=== PATIENT | male | born 1980 | race Caucasian/White ===

== ENCOUNTER 2017-11-24 22:49 | Inpatient (IN) | payer MEDICAID, SELFPAY ==
[2017-11-24 22:50] VITALS: BP 150/88; PULSE 129; RESP 22; TEMP 37.1; O2SAT 99; BMI 27.3
[2017-11-24 23:00] LABS: Bedside Glucose > 500 mg/dL (70-110)
--- NOTE | 2017-11-24 23:26 | ED.VISSUMM ---
- ER Visit Summary Date of Service: 11/24/17 Chief Complaint: [] in DKA History of Present Illness: The patient is a 37 M presents with feeling like he is in DKA for last 2 days gradual onset. He has been using his insulin. He had 4 episodes of emesis yesterday and 6 today. He cannot get on top of his blood sugars. They were greater than 500 today. He takes NovoLog and a long-acting in the morning. He has not seen his family doctor to change his insulin the last 8 months. Any other symptoms except for muscle aches soreness Physical Examination: Vital signs reviewed General: Well-nourished well-developed Head: Normocephalic atraumatic Eyes: Pupils equal round and reactive to light extraocular movements intact ENT: TMs clear no hemotympanum no trauma Neck: Nontender full range of motion Cardiovascular: Regular tachycardia with normal rhythm. No murmurs normal S1-S2 Respiratory: No distress clear to auscultation bilaterally chest nontender Abdomen: Soft nontender nondistended normal bowel sounds no masses Back: Nontender no CVA tenderness Extremities: Nontender active range of motion ?4 extremities no trauma Skin: Normal color no trauma Neuro alert oriented cranial nerves II through XII intact normal strength sensation reflexes Test Results: [] Emergency Department Course and Treatment: [] Given IV fluid boluses. Initial blood sugar greater than 500. Lab work shows DKA with CO2 of 6 anion gap 33. Ketones large. Given 4 L of fluid in the emergency department as well as started on insulin drip. Will be admitted. Treatment Plan: [] Disposition: [] Impression: [] Diabeticketoacidosis Renal insufficiency secondary to diabetic ketoacidosis Critical care time 74 minutes This note was generated with [employer] dictation software. It may contain incorrect words, spelling, and punctuation that were not noted in review of the chart prior to signing ED Disposition - Plan for ED Patient: Chief Complaint: Fatigue Referrals: Kristal Luke MD [Primary Care Provider] -
[2017-11-24] MEDS: 0.9% Normal Saline 1,000 ML 1000 ML IV ×2 (23:37→23:38)
[2017-11-24] MEDS: Ondansetron 4 MG/2 ML Vial IV (23:38)
[2017-11-24 23:41] LABS: Absolute Lymphocyte Count 1.07 X10^3/ul (0.83-4.51); Absolute Neutrophil Count 9.4 X10^3/uL (2.0-7.7); Basophil# 0.04 X10^3/uL; Basophil% 0.4 % (0-1); Eosinophil# 0.02 X10^3/uL; Eosinophils% 0.2 % (0-5); Hematocrit 40.6 % (40-54); Hemoglobin 13.1 g/dl (13.0-16.5); Lymphocyte # 1.07 X10^3/ul (4.0); Lymphocyte % 9.6 % (19-41); Mean Corp Hgb Conc 32.3 g/gl (32-36); Mean Corpuscular Hgb 28.5 pg (27.0-32.0); Mean Corpuscular Volume 88.3 fL (80-94); Mean Platelet Vol. 9.7 fl (6.2-12.0); Monocyte# 0.66 X10^3/uL; Monocyte% 5.9 % (0-10); Neutrophil # 9.35 X10^3/uL (2.7-7.7); Neutrophil % 83.8 % (47-70); Platelet Count 327 K/mm3 (150-450); RBC Distribution Width CV 12.9 % (11.6-14.6); RBC Distribution Width SD 41.5 fl (35.1-43.9); White Blood Count 11.2 K/mm3 (4.4-11.0)
[2017-11-24 23:42] VITALS: BP 126/87; PULSE 114; RESP 18; O2SAT 99
[2017-11-24 23:49] LABS: POSITIVE COUNT NO; POSITIVE DIFFERENTIAL NO; POSITIVE MORPHOLOGY NO
[2017-11-25] VITALS (25 sets, daily range): BP systolic 89–163; BP diastolic 59–105; PULSE 81–115; RESP 9–27; TEMP 36.7–37.1; O2SAT 92–100; BMI 27.8; BMI 27.9
[2017-11-25 00:05] LABS: Anion Gap 33 (5-15); BUN 43 mg/dL (7-18); BUN/Creat Ratio 18.5 RATIO (10-20); Calcium,Total 9.8 mg/dL (8.5-10.1); Chloride 91 mmol/L (98-107); Creatinine, Serum 2.32 mg/dL (0.70-1.30); EST Glomerular Filtration Rate 34 mL/min (>60); Est Glom Filt Rate - Afr Amer 41 mL/min (>60); Estimated Creatinine Clearance 47.33 ml/min; Glucose 505 mg/dL (74-106); Potassium 4.3 mmol/L (3.5-5.1); Sodium Level 130 mmol/L (136-145)
[2017-11-25] MEDS: Ketorolac 15 MG/ML Vial IV (00:16)
--- NOTE | 2017-11-25 00:42 | PCM.HP.STD ---
Problem List (1) DKA (diabetic ketoacidoses) Status: Acute Qualifiers: Diabetes mellitus type: type 1 Diabetes mellitus complication detail: without coma Qualified Code(s): E10.10 - Type 1 diabetes mellitus with ketoacidosis without coma (2) Hyperlipidemia Status: Chronic (3) History of anxiety Status: Chronic (4) DM type 1 (diabetes mellitus, type 1) Status: Chronic History of Present Illness Date of Admission: 11/25/17 Chief Complaint: general weakness The patient is a 37 year old male patient with a significant past medical history of type one diabetes presents to the ER with generalized weakness. His last episode of DKA was 4 years ago. He admits that recently he has been on a keto diet and has been adjusting his insulin without actually checking his blood sugar levels. He last saw his PCP for diabetes management 8 months ago. His blood sugar is 505 with an anion gap of 33 and his positive for acetone in his urine. He has received 3 liters of normal saline and is on insulin drip. He denies feeling nausea but admits he is fatigued. He thinks he has been in DKA for the past 3 days and has been trying to dose himself with insulin to get out but admits he was unsuccessful so he came in for advanced care. Past Medical History Past Medical History (Chronic Problems): Chronic Problems Hyperlipidemia (Chronic) History of anxiety (Chronic) DM type 1 (diabetes mellitus, type 1) (Chronic) Allergies No Known Allergies Allergy (Verified 11/24/17 22:52) Home Medications: Ambulatory Orders Medication Instructions Recorded Insulin Aspart [Novolog Flexpen 0 units SC TIDCM 09/06/15 ([facility])] Insulin Aspart [Novolog Flexpen 10 units SC TIDCM #1 flexpen 06/17/16 ([facility])] Insulin Glargine,Hum.rec.anlog 40 unit SQ BREAKFAST 06/17/16 [Basaglar Kwikpen U-100] Ibuprofen 800 mg PO DAILY 11/24/17 Surgical History: - - RLE I+D secondary to abscess, noted was staph. Psychiatric History: Anxiety Smoking Status: Never smoker - *Family History Maternal History Items: Diabetes Paternal History Items: Diabetes, Heart Disease Review of Systems Constitutional: Reports: Weakness, Fatigue. Denies: Chills, Fever, Weight Change HEENT: Denies: Head Aches, Sinus Congestion, Sinus Drainage Cardiovascular: Denies: Chest Pain, Palpitations Respiratory: Denies: Cough, Shortness of breath at rest, Sputum production Gastrointestinal: Reports: Abdominal Pain, Nausea, Vomiting Genitourinary: Denies: Dysuria Musculoskeletal: Denies: Joint Pain, Joint Tenderness Skin: Denies: Rash, Wounds Neurological: Denies: Numbness, Tingling, Focal weakness Psychiatric: Reports: Anxiety. Denies: Depression, Homicidal Ideations, Suicidal Ideations Hematologic/ Lymphatic: Denies: Easy Bruising, Easy Bleeding VTE Information - Inpt Only VTE Present on Admission: No VTE Mechan Device Prophylaxis: None VTE Pharm Prophylaxis ordered?: Yes Patient Problems: Active and Suspected Problems DKA (diabetic ketoacidoses) (Acute) - Physical Exam General: Alert, Oriented x3, Cooperative HEENT: Atraumatic, Normocephalic Neck: Supple Lungs: Clear to auscultation, Normal air movement, No rhonchi, No wheeze, No rales Cardiovascular: Regular rate, Normal S1, Normal S2, No murmurs Abdomen: Bowel Sounds Present, Soft, Tender - mild tenderness generalized Extremities: No edema, Capillary Refill Less than 3 Seconds Skin: No rashes Musculoskeletal: No Tenderness to Palpation of Joints or Extremities Neurological: Neuro grossly intact Psych/Mental Status: Normal Affect, Appropriate Vital Signs Temp Pulse Resp BP Pulse Ox 98.7 F 114 H 18 126/87 H 99 11/24/17 22:50 11/24/17 23:42 11/24/17 23:42 11/24/17 23:42 11/24/17 23:42 Oxygen Delivery Method Room Air Weight: 196 lb Body Mass Index (BMI) 27.3 Finger Stick Blood Glucose 525 Laboratory Tests Past 24 Hrs 11/24/17 11/24/17 11/24/17 23:10 23:10 23:10 WBC 11.2 H RBC 4.60 Hgb 13.1 Hct 40.6 MCV 88.3 MCH 28.5 MCHC 32.3 RDW 12.9 RDW Differential 41.5 Plt Count 327 MPV 9.7 Immature Gran % (Auto) 0.100 Neut % (Auto) 83.8 H Lymph % (Auto) 9.6 L [place] % (Auto) 5.9 Eos % (Auto) 0.2 Baso % (Auto) 0.4 Absolute Neuts (auto) 9.4 H Absolute Lymphs (auto) 1.07 Total Counted Not Reportable Sodium 130 L Potassium 4.3 Chloride 91 L Carbon Dioxide 6.0 L* Anion Gap 33 H BUN 43 H Creatinine 2.32 H Estim Creat Clear Calc 47.33 Est GFR (MDRD) Af Amer 41 L Est GFR (MDRD) Non-Af 34 L BUN/Creatinine Ratio 18.5 Glucose 505 H* Calcium 9.8 Acetone Level LARGE H POC Glucose 11/24/17 22:56 POC Glucose > 500 H* Assessment/Plan All Active Problems DKA (diabetic ketoacidoses) (Acute) Hypoglycemia (Acute) Chronic Problems Hyperlipidemia (Chronic) History of anxiety (Chronic) DM type 1 (diabetes mellitus, type 1) (Chronic) Plan - admit to ICU - consult Dr Ryan - DKA protocol with insulin ggt - bmp in 4 hrs - NPO while on drip - LMWH for DVT prophylaxis Code Visit Inpatient E&M: 34321 Init Hosp L3
[2017-11-25] MEDS: 0.9% Normal Saline 1,000 ML 1000 ML IV ×2 (01:20→02:32)
[2017-11-25 01:26] LABS: Bedside Glucose 247 mg/dL (70-110)
[2017-11-25] MEDS: HYDROmorphone 1 MG/ML Syringe IV (02:43)
[2017-11-25] MEDS: DiphenhydrAMINE 50 MG/ML Syringe IV (02:43)
[2017-11-25 03:12] LABS: Anion Gap 26 (5-15); BUN 36 mg/dL (7-18); BUN/Creat Ratio 19.9 RATIO (10-20); Calcium,Total 8.8 mg/dL (8.5-10.1); Chloride 104 mmol/L (98-107); Creatinine, Serum 1.81 mg/dL (0.70-1.30); EST Glomerular Filtration Rate 46 mL/min (>60); Est Glom Filt Rate - Afr Amer 55 mL/min (>60); Estimated Creatinine Clearance 60.67 ml/min; Glucose 215 mg/dL (74-106); Sodium Level 140 mmol/L (136-145)
[2017-11-25 03:56] LABS: Bedside Glucose 133 mg/dL (70-110)
[2017-11-25 03:56] LABS: Bedside Glucose 175 mg/dL (70-110)
[2017-11-25 04:11] LABS: M R Staph aureus DNA By PCR Negative (Negative); Probe Check PASS; Specimen Processing Control PASS
[2017-11-25 04:54] LABS: Hemoglobin A1c 10.5 % (4.2-6.3)
[2017-11-25 05:21] LABS: Bedside Glucose 107 mg/dL (70-110)
[2017-11-25 06:16] LABS: Bedside Glucose 105 mg/dL (70-110)
[2017-11-25] MEDS: Ondansetron 4 MG/2 ML Vial IV (06:28)
[2017-11-25] MEDS: 0.9% NaCl Peripheral Flush Adult/Peds IV (06:28)
--- NOTE | 2017-11-25 06:49 | CON.PCM_ITS ---
Problem List (1) DKA (diabetic ketoacidoses) Status: Acute Qualifiers: Diabetes mellitus type: type 1 Diabetes mellitus complication detail: without coma Qualified Code(s): E10.10 - Type 1 diabetes mellitus with ketoacidosis without coma (2) Hyperlipidemia Status: Chronic (3) Hypoglycemia Status: Acute (4) History of anxiety Status: Chronic (5) DM type 1 (diabetes mellitus, type 1) Status: Chronic Reason for Consult Date of Consultation: 11/25/17 Reason for Consultation: DKA History of Present Illness: The patient is a 37 year old M with past medical history listed below, who presented to [facility] on 11/24/2017 secondary to nausea and vomiting. Patient reportedly had noted increasing fatigue, nausea and vomiting over the last 3 days. Patient states his sugars were greater than 500 at home and he had attempted increased insulin with no improvement. Patient did report some muscle aches and soreness, but no fever, chills, productive cough or diarrhea has been reported. In the emergency room, patient was noted to be in DKA with a bicarbonate of 6 and an anion gap of 33. Patient was given 4 L of IV fluids and initiated on insulin drip. Patient reportedly responded well and was transferred to the intensive care unit. While in the intensive care unit, patient did complain at approximately 2:30 AM of chest pain. Pain was described as sharp and substernal without radiation. No diaphoresis was reported. Patient had an EKG showed no ST segment elevation. Patient was given Dilaudid with improvement in symptoms. Patient's blood sugars improved rapidly and hospitalist did hold insulin drip when levels continue to fall despite addition of D5 half-normal saline. Patient reports last time he was in DKA was approximately 2-3 years ago. Patient denies any recent illness. Patient states he has been using his insulin and checking his blood sugars frequently. Patient does admit that he has not seen a family physician in over 8 months. Patient is unaware of what his hemoglobin A1c is currently. Review of systems otherwise negative ?10 systems. Past Medical History Past Medical History (Chronic Problems): Chronic Problems Hyperlipidemia (Chronic) History of anxiety (Chronic) DM type 1 (diabetes mellitus, type 1) (Chronic) Allergies No Known Allergies Allergy (Verified 11/24/17 22:52) Home Medications: Ambulatory Orders Medication Instructions Recorded Insulin Aspart [Novolog Flexpen 0 units SC TIDCM 09/06/15 ([facility])] Insulin Aspart [Novolog Flexpen 10 units SC TIDCM #1 flexpen 06/17/16 ([facility])] Insulin Glargine,Hum.rec.anlog 40 unit SQ BREAKFAST 06/17/16 [Basaglar Kwikpen U-100] Ibuprofen 800 mg PO DAILY 11/24/17 Surgical History: - - RLE I+D secondary to abscess, noted was staph. Psychiatric History: Anxiety Smoking Status: Never smoker - *Family History Maternal History Items: Diabetes Paternal History Items: Diabetes, Heart Disease Review of Systems Comment: See HPI Patient Problems: Active and Suspected Problems DKA (diabetic ketoacidoses) (Acute) Objective: No imaging was available for review. - Physical Exam General: Alert, Oriented x3, Cooperative, No apparent distress, - - Speaking in full sentences. Appears stated age. HEENT: Atraumatic, PERRLA, EOMI, Normocephalic, - - No scleral icterus or injection noted. Oral: Moist Mucosa, No Gingival or Mucosal Lesions/ Ulcerations Neck: Supple, No JVD, No Nodes, Trachea Midline Lungs: Clear to auscultation, Normal air movement, No rhonchi, No wheeze, No rales, - - Symmetric expansion. No dullness to percussion. Cardiovascular: Regular rate, Regular Rhythm, Normal S1, Normal S2, No murmurs, No rub noted, No Gallop Abdomen: Bowel Sounds Present, Soft, Non Tender, Non-Distended, Obese Extremities: No clubbing, No cyanosis, No edema, Capillary Refill Less than 3 Seconds Skin: No rashes, No breakdown Musculoskeletal: No Tenderness to Palpation of Joints or Extremities Lymphatic: No Cervical, Supraclavicular, or Inguinal Adenopathy Neurological: Cranial nerves II-XII grossly intact, Neuro grossly intact, Motor Exam 5/5 strength throughout Psych/Mental Status: Alert and oriented to time, place, person, mood and affect Vital Signs Temp Pulse Resp BP Pulse Ox 36.7 C 91 16 103/69 96 11/25/17 04:00 11/25/17 06:00 11/25/17 06:00 11/25/17 06:00 11/25/17 06:00 Oxygen Delivery Method Room Air Weight: 90.7 kg Body Mass Index (BMI) 27.8 Finger Stick Blood Glucose 247 Intake and Output for Last 24 Hours 11/23/17 11/24/17 11/25/17 23:59 23:59 23:59 Intake Total 1233.5 / 1233.5 Output Total 1000 / 1000 Balance 233.5 / 233.5 Laboratory Tests 11/24/17 11/24/17 11/24/17 22:56 23:10 23:10 WBC 11.2 H RBC 4.60 Hgb 13.1 Hct 40.6 MCV 88.3 MCH 28.5 MCHC 32.3 RDW 12.9 RDW Differential 41.5 Plt Count 327 MPV 9.7 Immature Gran % (Auto) 0.100 Neut % (Auto) 83.8 H Lymph % (Auto) 9.6 L [place] % (Auto) 5.9 Eos % (Auto) 0.2 Baso % (Auto) 0.4 Absolute Neuts (auto) 9.4 H Absolute Lymphs (auto) 1.07 Total Counted Not Reportable Sodium 130 L Potassium 4.3 Chloride 91 L Carbon Dioxide 6.0 L* Anion Gap 33 H BUN 43 H Creatinine 2.32 H Estim Creat Clear Calc 47.33 Est GFR (MDRD) Af Amer 41 L Est GFR (MDRD) Non-Af 34 L BUN/Creatinine Ratio 18.5 Glucose 505 H* Hemoglobin A1c Calcium 9.8 Acetone Level MRSA (PCR) POC Glucose > 500 H* 11/24/17 11/25/17 11/25/17 23:10 01:18 02:30 WBC RBC Hgb Hct MCV MCH MCHC RDW RDW Differential Plt Count MPV Immature Gran % (Auto) Neut % (Auto) Lymph % (Auto) [place] % (Auto) Eos % (Auto) Baso % (Auto) Absolute Neuts (auto) Absolute Lymphs (auto) Total Counted Sodium Potassium Chloride Carbon Dioxide Anion Gap BUN Creatinine Estim Creat Clear Calc Est GFR (MDRD) Af Amer Est GFR (MDRD) Non-Af BUN/Creatinine Ratio Glucose Hemoglobin A1c Calcium Acetone Level LARGE H MRSA (PCR) Negative POC Glucose 247 H 11/25/17 11/25/17 11/25/17 02:38 02:38 02:41 WBC RBC Hgb Hct MCV MCH MCHC RDW RDW Differential Plt Count MPV Immature Gran % (Auto) Neut % (Auto) Lymph % (Auto) [place] % (Auto) Eos % (Auto) Baso % (Auto) Absolute Neuts (auto) Absolute Lymphs (auto) Total Counted Sodium 140 Potassium 4.0 Chloride 104 Carbon Dioxide 10.0 L Anion Gap 26 H BUN 36 H Creatinine 1.81 H Estim Creat Clear Calc 60.67 Est GFR (MDRD) Af Amer 55 L Est GFR (MDRD) Non-Af 46 L BUN/Creatinine Ratio 19.9 Glucose 215 H Hemoglobin A1c 10.5 H Calcium 8.8 Acetone Level MRSA (PCR) POC Glucose 175 H 11/25/17 11/25/17 11/25/17 03:50 05:11 06:07 WBC RBC Hgb Hct MCV MCH MCHC RDW RDW Differential Plt Count MPV Immature Gran % (Auto) Neut % (Auto) Lymph % (Auto) [place] % (Auto) Eos % (Auto) Baso % (Auto) Absolute Neuts (auto) Absolute Lymphs (auto) Total Counted Sodium Potassium Chloride Carbon Dioxide Anion Gap BUN Creatinine Estim Creat Clear Calc Est GFR (MDRD) Af Amer Est GFR (MDRD) Non-Af BUN/Creatinine Ratio Glucose Hemoglobin A1c Calcium Acetone Level MRSA (PCR) POC Glucose 133 H 107 105 Assessment/Plan Active and Suspected Problems DKA (diabetic ketoacidoses) (Acute) RECOMMENDATIONS: 1. Increase dextrose drip, continue insulin 2. Aggressive hydration 3. Laboratory workup per protocol 4. Cycle troponins IMPRESSIONS: 1. Acute DKA without coma Patient currently on an insulin drip. Patient's gap continues to improve on protocol. Will increase IV fluids to compensate for fall in glucose. Continue insulin drip. Transition to subcu insulin per protocol. Patient does not appear to have extraneous factors leading to development of DKA. Hemoglobin A1c of 10.5 indicating poor long-term control. Will have to see if patient can follow-up with endocrinology as an outpatient. 2. Atypical chest pain Unclear if patient is currently seeking pain medications. EKG is unremarkable. Will obtain cardiac enzyme series. Patient does have type 1 diabetes that is uncontrolled. Continue with telemetry monitoring. 3. Acute kidney injury High clinical suspicion for prerenal etiology secondary to DKA. Patient is receiving aggressive fluid resuscitation. We will continue to monitor. No indication for renal replacement therapy at this time. Code Visit Inpatient E&M: 80951 Init Hosp L2
[2017-11-25 06:59] LABS: Hematocrit 38.7 % (40-54); Hemoglobin 12.9 g/dl (13.0-16.5); Mean Corp Hgb Conc 33.3 g/gl (32-36); Mean Corpuscular Hgb 28.5 pg (27.0-32.0); Mean Corpuscular Volume 85.6 fL (80-94); Platelet Count 271 K/mm3 (150-450); RBC Distribution Width CV 12.8 % (11.6-14.6); RBC Distribution Width SD 39.8 fl (35.1-43.9); Red Blood Count 4.52 M/mm3 (4.6-6.2); Scan Indicated on CBC? Y/N NO; White Blood Count 9.3 K/mm3 (4.4-11.0)
[2017-11-25 07:11] LABS: Bedside Glucose 90 mg/dL (70-110)
[2017-11-25 07:11] LABS: Anion Gap 17 (5-15); BUN 29 mg/dL (7-18); BUN/Creat Ratio 17.8 RATIO (10-20); Calcium,Total 8.5 mg/dL (8.5-10.1); Chloride 108 mmol/L (98-107); Creatinine, Serum 1.63 mg/dL (0.70-1.30); EST Glomerular Filtration Rate 51 mL/min (>60); Est Glom Filt Rate - Afr Amer 62 mL/min (>60); Estimated Creatinine Clearance 67.37 ml/min; Glucose 112 mg/dL (74-106); Potassium 4.2 mmol/L (3.5-5.1); Sodium Level 140 mmol/L (136-145)
[2017-11-25] MEDS: Ibuprofen 400 MG Tablet 800 MG PO (08:02)
[2017-11-25] MEDS: Enoxaparin 40 MG/0.4 ML Syringe SC (08:02)
[2017-11-25 08:11] LABS: Bedside Glucose 96 mg/dL (70-110)
--- NOTE | 2017-11-25 09:26 | PCM.PN.HOSP ---
Patient Problems: Active and Suspected Problems DKA (diabetic ketoacidoses) (Acute) Subjective: Has leg cramping today, otherwise does feel a little better than yesterday Vitals/I&O's: Vital Signs Temp Pulse Resp BP Pulse Ox 98.8 F 97 18 107/75 98 11/25/17 08:00 11/25/17 08:00 11/25/17 08:00 11/25/17 08:00 11/25/17 08:00 Oxygen Delivery Method Room Air Weight: 199 lb 15.348 oz Body Mass Index (BMI) 27.8 Finger Stick Blood Glucose 96 Intake and Output for Last 24 Hours 11/23/17 11/24/17 11/25/17 23:59 23:59 23:59 Intake Total 1233.5 / 1233.5 Output Total 1000 / 1000 Balance 233.5 / 233.5 General: Alert, Oriented x3, Cooperative, No apparent distress HEENT: Atraumatic, EOMI, Normocephalic Oral: Moist Mucosa Neck: Supple, No JVD Lungs: Clear to auscultation, Normal air movement, No rhonchi, No wheeze, No rales Cardiovascular: Regular rate, Regular Rhythm, Normal S1, Normal S2, No murmurs Abdomen: Soft, Non Tender, Non-Distended, No Hepato-splenomegaly Skin: No rashes, No breakdown Musculoskeletal: No Tenderness to Palpation of Joints or Extremities, No Muscle Wasting Psych/Mental Status: Normal Affect, Appropriate Laboratory Results 11/25/17 01:18: POC Glucose 247 H 11/25/17 02:30: MRSA (PCR) Negative 11/25/17 02:38: Hemoglobin A1c 10.5 H 11/25/17 02:38: Sodium 140, Potassium 4.0, Chloride 104, Carbon Dioxide 10.0 L, Anion Gap 26 H, BUN 36 H, Creatinine 1.81 H, Estim Creat Clear Calc 60.67, Est GFR (MDRD) Af Amer 55 L, Est GFR (MDRD) Non-Af 46 L, BUN/Creatinine Ratio 19.9, Glucose 215 H, Calcium 8.8 11/25/17 02:38: Troponin I < 0.015 11/25/17 02:41: POC Glucose 175 H 11/25/17 03:50: POC Glucose 133 H 11/25/17 05:11: POC Glucose 107 11/25/17 06:07: POC Glucose 105 11/25/17 06:45: Acetone Level SMALL H 11/25/17 06:45: WBC 9.3, RBC 4.52 L, Hgb 12.9 L, Hct 38.7 L, MCV 85.6, MCH 28.5, MCHC 33.3, RDW 12.8, RDW Differential 39.8, Plt Count 271, MPV 9.0 11/25/17 06:45: Sodium 140, Potassium 4.2, Chloride 108 H, Carbon Dioxide 15.0 L, Anion Gap 17 H, BUN 29 H, Creatinine 1.63 H, Estim Creat Clear Calc 67.37, Est GFR (MDRD) Af Amer 62, Est GFR (MDRD) Non-Af 51 L, BUN/Creatinine Ratio 17.8, Glucose 112 H, Calcium 8.5 11/25/17 06:45: Troponin I < 0.015 11/25/17 07:06: POC Glucose 90 11/25/17 07:58: POC Glucose 96 Current Medications Dextrose (D50w Syringe) 0 gm IV X1 PRN; Protocol PRN Reason: HYPOGLYCEMIA Enoxaparin Sodium (Lovenox) 40 mg SC DAILY@1000 CHILO Last Admin: 11/25/17 08:02 Dose: 40 mg Insulin Human Lispro 100 unit/ (Sodium Chloride) 100 mls @ 8.89 mls/hr IV .[id number] CHILO; 0.1 UNITS/KG/HR PRN Reason: Protocol Last Admin: 11/25/17 01:20 Dose: 8.89 mls/hr Potassium Chloride/Dextrose/Sod Cl (Kcl 20meq In D5.45ns 1000ml) 1,000 mls @ 200 mls/hr IV .Q5H [facility] Last Admin: 11/25/17 08:45 Dose: Not Given Ibuprofen (Motrin) 800 mg PO DAILYCM [facility] Last Admin: 11/25/17 08:02 Dose: 800 mg Magnesium Hydroxide (Milk Of Magnesia) 30 ml PO DAILY PRN PRN PRN Reason: Constipation Ondansetron HCl (Zofran) 4 mg IV Q6H PRN PRN PRN Reason: NAUSEA Last Admin: 11/25/17 06:28 Dose: 4 mg Sodium Chloride () 5 - 30 ml IV UD PRN PRN Reason: SALINE FLUSH Last Admin: 11/25/17 06:28 Dose: 10 ml Medical Necessity - Tobacco Use Smoking Status: Never smoker Assessment/Plan All Active Problems DKA (diabetic ketoacidoses) (Acute) Hypoglycemia (Acute) 1. DKA with DM1 - C/w the insulin gtt per protocol - Acidosis and gap are closing but his CO2 is still 15 up from 6 and his gap is 17 - C/w IVF and monitor potassium, currently stable, replace as needed - Should be able to transition to SC insulin soon and then will monitor on a diet DVT: Heparin Diet: NPO Code: FULL Code Visit Inpatient E&M: 79940 Subs Hosp L2
[2017-11-25 10:10] LABS: Anion Gap 10 (5-15); BUN 24 mg/dL (7-18); BUN/Creat Ratio 17.5 RATIO (10-20); Calcium,Total 7.7 mg/dL (8.5-10.1); Chloride 112 mmol/L (98-107); Creatinine, Serum 1.37 mg/dL (0.70-1.30); EST Glomerular Filtration Rate 63 mL/min (>60); Est Glom Filt Rate - Afr Amer 76 mL/min (>60); Estimated Creatinine Clearance 80.16 ml/min; Glucose 90 mg/dL (74-106); Potassium 4.4 mmol/L (3.5-5.1); Sodium Level 137 mmol/L (136-145)
[2017-11-25 11:05] LABS: Bedside Glucose 78 mg/dL (70-110)
[2017-11-25 11:31] LABS: Bedside Glucose 71 mg/dL (70-110)
[2017-11-25 12:10] LABS: Bedside Glucose 61 mg/dL (70-110)
[2017-11-25 13:10] LABS: Bedside Glucose 67 mg/dL (70-110)
[2017-11-25 14:15] LABS: Anion Gap 11 (5-15); BUN 20 mg/dL (7-18); BUN/Creat Ratio 15.2 RATIO (10-20); Chloride 110 mmol/L (98-107); Creatinine, Serum 1.32 mg/dL (0.70-1.30); EST Glomerular Filtration Rate 66 mL/min (>60); Est Glom Filt Rate - Afr Amer 79 mL/min (>60); Estimated Creatinine Clearance 83.19 ml/min; Glucose 104 mg/dL (74-106); Potassium 4.9 mmol/L (3.5-5.1); Sodium Level 140 mmol/L (136-145)
[2017-11-25 16:00] LABS: Bedside Glucose 81 mg/dL (70-110)
--- NOTE | 2017-11-25 21:00 | NURSING ---
This RN explained to the pt, with pt's mother at bedside that the doctor highly advised pt to stay for the night. Pt was educated on why it was in the pt's best interest to stay. Pt signed AMA papers and given copy. IVs removed and heart monitor taken off.
--- NOTE | 2017-11-25 21:02 | NURSING ---
Patient's nurse Yarelis said patient wants to sign out AMA. Entered patient's room and introduced self as charge nurse. Patient's mother is at bedside and he gives permission to talk freely in front of her. Encouraged patient to stay multiple times, explained he would not get discharge instructions from doctors, explained importance of health to get discharge instructions, follow up appointments and if needed any medications prescriptions. He states I have to go to work in the morning and I can check my blood sugars at home. Mother also wants him to stay but he insists on going home. AMA papers given to patient's nurse Yarelis for him to sign.
== END 2017-11-25 21:10 | disposition left against medical advice (07) | DRG 295 ==
LOC: ED 11-25 00:14 → ICU 11-25 01:45 → PCU 11-25 17:11
PROVIDERS: Internal Medicine Critical Care Medicine; Admitting Provider Family Medicine; Emergency Provider Emergency Medicine; Family Provider Internal Medicine; PCP Internal Medicine; Visit Provider Family Medicine
DX: E10.10 Type 1 diabetes mellitus with ketoacidosis without coma (principal); N17.9 Acute kidney failure, unspecified; E78.5 Hyperlipidemia, unspecified; R07.89 Other chest pain; Z79.4 Long term (current) use of insulin
CPT/HCPCS: 80048; 82009; 82962; 83036; 84484; 85025; 85027; 87641; 93005; 97802; 99285; J7030; A4216; J2405

== ENCOUNTER 2018-02-07 22:28 | Observation (INO) | payer MEDICAID, SELFPAY ==
[2018-02-07 22:30] VITALS: BP 144/97; PULSE 102; RESP 18; TEMP 35.9; O2SAT 99; BMI 30.1
[2018-02-07] MEDS: Dextrose 50%-Water 25 GM/50 ML DISP.SYRIN IV (22:43)
--- NOTE | 2018-02-07 22:47 | CT_ITS ---
STUDY: CT BRAIN WITHOUT CONTRAST REASON FOR EXAM: Male, 37 years old. Headache. Hypertension. Hypoglycemia. RADIATION DOSAGE (If Supplied By Facility): CTDIvol = ( 44.99 ) mGy, DLP = ( 762.36 ) mGycm TECHNIQUE: Transaxial CT imaging of the brain was performed without administration of intravenous contrast material. Individualized dose optimization techniques were used for this CT. COMPARISON: None. FINDINGS: Normal soft tissue structures. Normal calvarium. Normal size ventricles and extra-axial spaces for the patient's age. Normal white matter tracts of the cerebral hemispheres. Normal basal ganglia and thalami. Normal brainstem. Normal cerebellum. There is no intracranial hemorrhage. There are no findings of an acute ischemic infarction. Normal visualized paranasal sinuses. CT/Brain/Head without Contrast IMPRESSION: Normal unenhanced CT scan of the brain. Electronically Signed: Anya Fontaine MD at 23:29 EST Tel , Service support ,
--- NOTE | 2018-02-07 22:47 | RAD_ITS ---
STUDY: X-RAY CHEST REASON FOR EXAM: Male, 37 years old. Hypoglycemia. TECHNIQUE: Portable chest. COMPARISON: 09/15/2013. FINDINGS: The lungs are clear and expanded. There is no demonstrated pleural abnormality. Normal size heart. Normal mediastinum and yamini. Normal visualized pulmonary arteries. Normal visualized aortic arch and descending thoracic aorta. Normal visualized thoracic spine. Normal visualized ribs, clavicles, and shoulders. There is no demonstrated abnormality of the visualized soft tissue structures of the upper abdomen. RAD/Chest 1 View (Portable) IMPRESSION: Normal x-ray examination of the chest. Electronically Signed: Anya Fontaine MD at 23:57 EST Tel , Service support ,
--- NOTE | 2018-02-07 22:49 | EKG12_ITS ---
Test Reason : HYPOGLYCEMIA Blood Pressure : / mmHG Vent. Rate : 093 BPM Atrial Rate : 093 BPM P-R Int : 160 ms QRS Dur : 082 ms QT Int : 356 ms P-R-T Axes : 040 034 048 degrees QTc Int : 442 ms Normal sinus rhythm Normal ECG Confirmed by DANIELLE TORRES MD ([id number]), scientific editor JF AUGUST ([id number] on 02/10/2018 3:57:37 PM Referred By: NOA Confirmed By:DANIELLE TORRES MD
[2018-02-07 22:50] LABS: Bedside Glucose 44 mg/dL (70-110)
[2018-02-07 22:55] LABS: Bedside Glucose 146 mg/dL (70-110)
[2018-02-07] MEDS: 0.9% Normal Saline 1,000 ML 1000 ML IV (22:56)
--- NOTE | 2018-02-07 22:58 | ED.DCSUM_ITS ---
- ER Visit Summary Date of Service: 02/07/18 Chief Complaint: Neck pain and headache History of Present Illness: The patient is a 37 M who was brought in due to neck pain and headache for the past 1 week. He complains of diffuse headache with pain radiating into his neck. was bringing him in to be evaluated for this. He was complaining of blurry vision at home prior to leaving and she checked his blood sugar which was 35 and he drank some orange juice. However he is mental status continued to worsen and became increasingly confused on his way here despite that. He did have a couple of episodes of nonbloody nonbilious emesis today as well. reports that he been complaining of some myalgias. No fever congestion rhinorrhea sore throat chest pain trouble breathing cough. No history of prior similar symptoms. He is a type I diabetic without any other medical history. notes that he is a brittle diabetic and difficult to control. Physical Examination: Heart rate 102 afebrile vitals otherwise normal No apparent distress At the initial time of my history patient was nonverbal but would open his eyes to voice but would not answer any questions, after administration of D50 he remains confused but was able to answer questions and follow commands No focal or lateralizing neurological deficits Heart is regular rhythm slightly tachycardic Lungs are clear Abdomen soft nontender Pupils are equally round reactive to light Neck is supple without nuchal rigidity or meningismus Extremities nontender without edema No rash Test Results: Initial BGT 44. Repeat BGT 146. EKG shows normal sinus rhythm at a rate of 93. CBC BMP notable for glucose of 48 this was drawn with IV start prior to the first D50. Hepatic function normal. INR normal. Lactic acid slightly elevated at 2.5. Urine shows ketones but otherwise normal. Chest x- ray normal. CT head normal. Emergency Department Course and Treatment: Patient was seen shortly after arrival to room 1. IV was established and the patient was given D50. The blood sugar greater than 140. Even when his blood sugar was normal he was confused. He was unable to tell me the year for his birthday. He underwent workup as above. Due to confusion and complaint of severe headache I discussed risks and benefits of lumbar puncture and his signed informed consent. Prior to the procedure patient's mental status is significantly improved. He is alert and oriented he did consent lumbar puncture. 3 attempts were made at the L4-L5 level but this was unsuccessful. It is somewhat technically difficult given his obesity. My clinical concern for bacterial meningitis is very low given lack of fever or leukocytosis or meningeal signs. I would not empirically treat with antibiotics based on this. Additionally his headache progressed over 1 day it was not thunderclap headache and he has no focal or lateralizing neurological deficits. I do not believe this is consistent with subarachnoid hemorrhage. He was given Toradol and Reglan for headache. He again developed hypoglycemia with a blood sugar in the 40s. He was given additional D50 and started on D5 infusion. He was discussed with the hospitalist and will be admitted. Treatment Plan: [] Disposition: Admit Impression: Headache Recurrent hypoglycemia This note was generated with [employer] dictation software. It may contain incorrect words, spelling, and punctuation that were not noted in review of the chart prior to signing ED Disposition - Plan for ED Patient: Chief Complaint: Hypoglycemia Referrals: Kristal Luke MD [Primary Care Provider] -
[2018-02-07 23:00] LABS: Absolute Lymphocyte Count 2.08 X10^3/ul (0.83-4.51); Absolute Neutrophil Count 4.1 X10^3/uL (2.0-7.7); Basophil# 0.02 X10^3/uL; Basophil% 0.3 % (0-1); Eosinophil# 0.09 X10^3/uL; Eosinophils% 1.3 % (0-5); Hematocrit 39.9 % (40-54); Hemoglobin 13.8 g/dl (13.0-16.5); Lymphocyte # 2.08 X10^3/ul (4.0); Lymphocyte % 29.7 % (19-41); Mean Corp Hgb Conc 34.6 g/gl (32-36); Mean Corpuscular Hgb 28.8 pg (27.0-32.0); Mean Corpuscular Volume 83.3 fL (80-94); Mean Platelet Vol. 8.6 fl (6.2-12.0); Monocyte# 0.68 X10^3/uL; Monocyte% 9.7 % (0-10); Neutrophil # 4.13 X10^3/uL (2.7-7.7); Neutrophil % 58.9 % (47-70); POSITIVE COUNT NO; POSITIVE DIFFERENTIAL NO; POSITIVE MORPHOLOGY NO; Platelet Count 299 K/mm3 (150-450); RBC Distribution Width CV 12.9 % (11.6-14.6); Red Blood Count 4.79 M/mm3 (4.6-6.2)
[2018-02-07 23:05] LABS: International Normalized Ratio 0.9; Prothrombin Time (Protime)PT. 11.8 SECONDS (11.7-14.9)
[2018-02-07 23:12] LABS: ALB/GLOB Ratio 0.9 RATIO (0.9-2.4); AST(SGOT) 19 U/L (15-37); Alanine Aminotransfer ALT/SGPT 32 U/L (16-61); Albumin, Serum 3.8 g/dL (3.2-5.0); Alkaline Phosphatase 113 U/L (45-117); Anion Gap 13 (5-15); BUN 28 mg/dL (7-18); Calcium,Total 10.2 mg/dL (8.5-10.1); Chloride 101 mmol/L (98-107); Creatinine, Serum 1.27 mg/dL (0.70-1.30); EST Glomerular Filtration Rate 68 mL/min (>60); Est Glom Filt Rate - Afr Amer 83 mL/min (>60); Estimated Creatinine Clearance 81.18 ml/min; Globulin 4.2 g/dL (2.2-4.2); Glucose 48 mg/dL (74-106); Potassium 3.4 mmol/L (3.5-5.1); Sodium Level 137 mmol/L (136-145)
[2018-02-07 23:26] LABS: Mucous, Urine 0 SEEN /hpf (<or=2+)
[2018-02-07 23:28] LABS: Color, Urine Yellow (Yellow); Glucose, Dipstick 1000 mg/dl (Normal); Leukocyte Esterase-Dipstick 25 /ul (Negative); Nitrite-Dipstick Negative (Negative); Occult Blood-Urine 25 /ul (Negative); Protein-Dipstick 100 mg/dl (Negative); Urine Bilirubin Dipstick Negative (Negative); Urine Clarity Sl. Cloudy (Clear); Urine Urobilinogen Normal (Normal)
[2018-02-07 23:30] LABS: Ketone-Dipstick 150 mg/dl (Negative)
[2018-02-07 23:35] LABS: Lactic Acid 2.5 mmol/L (0.4-2.0)
--- NOTE | 2018-02-07 23:35 | ED.RN ---
LACTIC ACID 2.5, AWARE.
[2018-02-07 23:46] VITALS: PULSE 94; RESP 14; O2SAT 100
[2018-02-07 23:49] LABS: Bacteria RARE /hpf (None Seen); Red Blood Cells-Urine 0-5 SEEN /hpf (0-5); Squamous Epithelial Cells - UA 0-5 SEEN /hpf (0-5); White Blood Cells 0-5 SEEN /hpf (0-5)
[2018-02-08] VITALS (10 sets, daily range): BP systolic 124–185; BP diastolic 81–111; PULSE 80–101; RESP 16–25; TEMP 36.6–37.1; O2SAT 96–98; BMI 28.3
[2018-02-08] MEDS: Ketorolac 30 MG/ML Syringe IV (00:24)
[2018-02-08] MEDS: Metoclopramide 10 MG/2 ML Vial IV (00:24)
[2018-02-08] MEDS: Dextrose 50%-Water 25 GM/50 ML DISP.SYRIN IV (00:30)
[2018-02-08] MEDS: Dext 5%-0.45% NS 1,000 ML 125 ML IV (00:35)
[2018-02-08 00:56] LABS: Bedside Glucose 46 mg/dL (70-110)
[2018-02-08 00:56] LABS: Bedside Glucose 132 mg/dL (70-110)
--- NOTE | 2018-02-08 01:11 | CT_ITS ---
STUDY: CT CERVICAL SPINE WITHOUT CONTRAST REASON FOR EXAM: Male, 37 years old. Neck pain. Headaches RADIATION DOSAGE (If Supplied By Facility): CTDIvol = ( 29.11 ) mGy, DLP = ( 594.31 ) mGycm TECHNIQUE: High resolution transaxial imaging was performed without contrast material. Sagittal and coronal images were reconstructed. Individualized dose optimization techniques were used for this CT. COMPARISON: None FINDINGS: Normal craniovertebral junction. Normal anterior atlantoaxial articulation. Normal odontoid process. Normal cervical lordosis. Normal vertebral bodies and posterior osseous elements. C2-3: Normal endplates. Normal disc height and morphology. Normal central canal and intervertebral neuroforamina. C3-4: Normal endplates. Normal disc height and morphology. Normal central canal and intervertebral neuroforamina. C4-5: Normal endplates. Normal disc height and morphology. Normal central canal and intervertebral neuroforamina. C5-6: Normal endplates. Normal disc height and morphology. Normal central canal and intervertebral neuroforamina. C6-7: Normal endplates. Normal disc height and morphology. Normal central canal and intervertebral neuroforamina. C7-T1: Normal endplates. Normal disc height and morphology. Normal central canal and intervertebral neuroforamina. Normal visualized soft tissue structures. CT/Spine Cervical without Contras IMPRESSION: Normal unenhanced CT examination of the cervical spine. No fracture. No disc disease. Electronically Signed: Jerrell Mas MD at 1:51 EST Tel , Service support ,
--- NOTE | 2018-02-08 01:17 | HP.PCM_ITS ---
Problem List (1) Headache and neck pain Status: Acute (2) DKA (diabetic ketoacidoses) Status: Resolved Qualifiers: (3) Hyperlipidemia Status: Chronic (4) Hypoglycemia Status: Acute (5) History of anxiety Status: Chronic (6) DM type 1 (diabetes mellitus, type 1) Status: Chronic History of Present Illness Date of Admission: 02/08/18 Chief Complaint: Headache and neck pain for 1 week. Hypoglycemia The patient is a 37 year old M with history of type 1 diabetes mellitus on NovoLog and glargine insulin came to ED with headache and neck pain for about 1 week. Patient also complained of blurry vision on and off. Patient started having nausea and vomiting today that brought him to ER. Headache is started on back of neck on left side and radiated to the frontal region. He denies fever or chills, URI or flulike symptoms. No lower urinary tract symptoms. No abdominal pain or change in bowel movement. In ED, CT head and chest x-ray does not show acute change. EKG normal sinus rhythm. Basic lab was remarkable for lactic acid 2.5, calcium 10.2 and potassium 3.4 most probably related to dehydration. UA is negative for pyuria but glucose 1000, protein 100. The ER patient had unsuccessful attempt for LP [] Past Medical History Past Medical History (Chronic Problems): Chronic Problems Hyperlipidemia (Chronic) History of anxiety (Chronic) DM type 1 (diabetes mellitus, type 1) (Chronic) Allergies No Known Allergies Allergy (Verified 02/07/18 22:30) Home Medications: Ambulatory Orders Medication Instructions Recorded Insulin Aspart [Novolog Flexpen 0 units SC TIDCM 09/06/15 ([facility])] Insulin Aspart [Novolog Flexpen 10 units SC TIDCM #1 flexpen 06/17/16 ([facility])] Insulin Glargine,Hum.rec.anlog 40 unit SQ BREAKFAST 06/17/16 [Basaglar Kwikpen U-100] Ibuprofen 800 mg PO DAILY 11/24/17 Surgical History: - - RLE I+D secondary to abscess, noted was staph. Psychiatric History: Anxiety Smoking Status: Never smoker - *Family History Maternal History Items: Diabetes Paternal History Items: Diabetes, Heart Disease Review of Systems Constitutional: Reports: Anorexia, Weakness, Fatigue. Denies: Chills, Fever, Weight Change Eyes: Reports: Blurred vision HEENT: Reports: Head Aches. Denies: Hearing Changes, Nasal Congestion, Post Nasal Drip, Sinus Congestion, Sinus Drainage, Sore Throat Cardiovascular: Denies: Chest Pain, Palpitations Respiratory: Denies: Cough, Shortness of Breath, Shortness of breath at rest, Sputum production Gastrointestinal: Denies: Abdominal Pain, Nausea, Vomiting Genitourinary: Denies: Dysuria Musculoskeletal: Reports: Neck Pain. Denies: Joint Pain, Joint Tenderness Skin: Denies: Rash, Wounds Neurological: Denies: Numbness, Tingling, Focal weakness Psychiatric: Reports: Anxiety. Denies: Depression, Homicidal Ideations, Suicidal Ideations Hematologic/ Lymphatic: Denies: Easy Bruising, Easy Bleeding VTE Information - Inpt Only VTE Present on Admission: No VTE Mechan Device Prophylaxis: SCD's VTE Pharm Prophylaxis ordered?: No Patient Problems: Active and Suspected Problems Headache and neck pain (Acute) - Physical Exam General: Alert, Oriented x3, Cooperative HEENT: Atraumatic, PERRLA, EOMI, Normocephalic Oral: Dry Mucosa Neck: Supple, No JVD, Negative Carotid Bruits Lungs: Clear to auscultation, Normal air movement, No rhonchi, No wheeze, No rales Cardiovascular: Regular rate, Regular Rhythm, Normal S1, Normal S2, No murmurs Abdomen: Bowel Sounds Present, Soft, Non Tender, Non-Distended Extremities: No edema, Capillary Refill Less than 3 Seconds Skin: No rashes, No breakdown Musculoskeletal: No Tenderness to Palpation of Joints or Extremities Neurological: Cranial nerves II-XII grossly intact, Deep Tendon Reflexes 2+/4 and Symmetrical, Neuro grossly intact, Motor Exam 5/5 strength throughout, - - No meningeal signs including neck rigidity or Brudzinski signs. No abducens nerve palsy Psych/Mental Status: Normal Affect, Appropriate Vital Signs Temp Pulse Resp BP Pulse Ox 96.7 F L 98 25 H 158/98 H 98 02/07/18 22:30 02/08/18 00:29 02/08/18 00:29 02/08/18 00:29 02/08/18 00:29 Oxygen Delivery Method Room Air Weight: 204 lb 2.369 oz Body Mass Index (BMI) 30.1 Finger Stick Blood Glucose 132 Laboratory Tests Past 24 Hrs 02/07/18 02/07/1818 22:45 22:45 22:45 WBC 7.0 RBC 4.79 Hgb 13.8 Hct 39.9 L MCV 83.3 MCH 28.8 MCHC 34.6 RDW 12.9 RDW Differential 39.0 Plt Count 299 MPV 8.6 Immature Gran % (Auto) 0.100 Neut % (Auto) 58.9 Lymph % (Auto) 29.7 [place] % (Auto) 9.7 Eos % (Auto) 1.3 Baso % (Auto) 0.3 Absolute Neuts (auto) 4.1 Absolute Lymphs (auto) 2.08 Total Counted Not Reportable PT 11.8 INR 0.9 Sodium 137 Potassium 3.4 L Chloride 101 Carbon Dioxide 23.0 Anion Gap 13 BUN 28 H Creatinine 1.27 Estim Creat Clear Calc 81.18 Est GFR (MDRD) Af Amer 83 Est GFR (MDRD) Non-Af 68 BUN/Creatinine Ratio 22.0 H Glucose 48 L Lactic Acid Calcium 10.2 H Total Bilirubin 0.40 AST 19 ALT 32 Alkaline Phosphatase 113 Total Protein 8.0 Albumin 3.8 Globulin 4.2 Albumin/Globulin Ratio 0.9 Urine Color Urine Clarity Urine pH Ur Specific [place] Urine Protein Urine Glucose (UA) Urine Ketones Urine Occult Blood Urine Nitrite Urine Bilirubin Urine Urobilinogen Ur Leukocyte Esterase Urine RBC Urine WBC Ur Squamous Epith Cells Urine Bacteria Urine Mucus 02/07/18 02/07/18 22:45 23:20 WBC RBC Hgb Hct MCV MCH MCHC RDW RDW Differential Plt Count MPV Immature Gran % (Auto) Neut % (Auto) Lymph % (Auto) [place] % (Auto) Eos % (Auto) Baso % (Auto) Absolute Neuts (auto) Absolute Lymphs (auto) Total Counted PT INR Sodium Potassium Chloride Carbon Dioxide Anion Gap BUN Creatinine Estim Creat Clear Calc Est GFR (MDRD) Af Amer Est GFR (MDRD) Non-Af BUN/Creatinine Ratio Glucose Lactic Acid 2.5 H Calcium Total Bilirubin AST ALT Alkaline Phosphatase Total Protein Albumin Globulin Albumin/Globulin Ratio Urine Color Yellow Urine Clarity Sl. Cloudy Urine pH 6.0 Ur Specific [place] 1.020 Urine Protein 100 H Urine Glucose (UA) 1000 H Urine Ketones 150 H Urine Occult Blood 25 H Urine Nitrite Negative Urine Bilirubin Negative Urine Urobilinogen Normal Ur Leukocyte Esterase 25 H Urine RBC 0-5 SEEN Urine WBC 0-5 SEEN Ur Squamous Epith Cells 0-5 SEEN Urine Bacteria RARE Urine Mucus 0 SEEN POC Glucose 02/08/18 02/08/18 02/07/18 00:49 00:19 22:50 POC Glucose 132 H 46 L 146 H 02/07/18 22:39 POC Glucose 44 L* Assessment/Plan All Active Problems DKA (diabetic ketoacidoses) (Resolved) Headache and neck pain (Acute) Hypoglycemia (Acute) The patient is a 37 year old M with history of type 1 diabetes mellitus on NovoLog and glargine insulin came to ED with headache and neck pain for about 1 week. Patient also complained of blurry vision on and off. Patient started having nausea and vomiting today that brought him to ER. Headache is started on back of neck on left side and radiated to the frontal region. He denies fever or chills, URI or flulike symptoms. No lower urinary tract symptoms. No abdominal pain or change in bowel movement. In ED, CT head and chest x-ray does not show acute change. EKG normal sinus rhythm. Basic lab was remarkable for lactic acid 2.5, calcium 10.2 and po tassium 3.4 most probably related to dehydration. Patient was found hypoglycemic, glucose 48 mg/dL and D50 was given in ER. Repeat Accu-Chek 132. UA is negative for pyuria but glucose 1000, protein 100. The ER patient had unsuccessful attempt for LP. 1. Hypoglycemia with history of type 1 diabetes mellitus, most probably from loss of appetite.: The patient did not had changing dose of insulin. Patient has not been eating for 1 or 2 days secondary to nausea and vomiting and headache. Continue IV fluid D5 NS at 125 mill per hour. 2. Headache and neck pain, exact etiology unclear, most probably musculoskeletal/positional: Patient does not have meningeal signs, no fever and no leukocytosis therefore low suspicion of meningitis. Respiratory panel ordered. CT C-spine ordered. Pain control. If patient spikes a fever, sepsis workup and will need ultrasound-guided LP and antibiotics. Neuro consult for further evaluation. 3. Dyslipidemia: Fasting lipid profile tomorrow a.m. Patient is not on hypolipidemic agent. 4. DVT prophylaxis: Low risk. Bilateral SCDs while he is on bed. Laboratory Results 02/07/18 22:45: WBC 7.0, RBC 4.79, Hgb 13.8, Hct 39.9 L, MCV 83.3, MCH 28.8, MCHC 34.6, RDW 12.9, RDW Differential 39.0, Plt Count 299, MPV 8.6, Immature Gran % (Auto) 0.100, Neut % (Auto) 58.9, Lymph % (Auto) 29.7, [place] % (Auto) 9.7, Eos % (Auto) 1.3, Baso % (Auto) 0.3, Absolute Neuts (auto) 4.1, Absolute Lymphs (auto) 2.08, Total Counted Not Reportable 02/07/18 22:45: PT 11.8, INR 0.9 02/07/18 22:45: Sodium 137, Potassium 3.4 L, Chloride 101, Carbon Dioxide 23.0, Anion Gap 13, BUN 28 H, Creatinine 1.27, Estim Creat Clear Calc 81.18, Est GFR (MDRD) Af Amer 83, Est GFR (MDRD) Non-Af 68, BUN/Creatinine Ratio 22.0 H, Glucose 48 L, Calcium 10.2 H, Total Bilirubin 0.40, AST 19, ALT 32, Alkaline Phosphatase 113, Total Protein 8.0, Albumin 3.8, Globulin 4.2, Albumin/Globulin Ratio 0.9 02/07/18 22:45: Lactic Acid 2.5 H 02/07/18 22:50: POC Glucose 146 H 02/07/18 23:20: Urine Color Yellow, Urine Clarity Sl. Cloudy, Urine pH 6.0, Ur Specific [place] 1.020, Urine Protein 100 H, Urine Glucose (UA) 1000 H, Urine Ketones 150 H, Urine Occult Blood 25 H, Urine Nitrite Negative, Urine Bilirubin Negative, Urine Urobilinogen Normal, Ur Leukocyte Esterase 25 H, Urine RBC 0-5 SEEN, Urine WBC 0-5 SEEN, Ur Squamous Epith Cells 0-5 SEEN, Urine Bacteria RARE, Urine Mucus 0 SEEN 02/08/18 00:19: POC Glucose 46 L 02/08/18 00:49: POC Glucose 132 H Clinical Impression(s) from Imaging Studies Brain CT 02/07/18 22:47 IMPRESSION: Normal unenhanced CT scan of the brain. Chest X-Ray 02/07/18 22:47 IMPRESSION: Normal x-ray examination of the chest. Code Visit Inpatient E&M: 58125 Init Hosp L3
[2018-02-08 01:56] LABS: Bedside Glucose 76 mg/dL (70-110)
[2018-02-08] MEDS: Acetaminophen 325 MG Tablet 650 MG PO (02:38)
[2018-02-08] MEDS: Ondansetron 4 MG/2 ML Vial IV (02:38)
[2018-02-08 02:56] LABS: Reflex Lactate? Y
[2018-02-08 03:27] LABS: Absolute Neutrophil Count 4.4 X10^3/uL (2.0-7.7); Basophil# 0.02 X10^3/uL; Basophil% 0.3 % (0-1); Eosinophil# 0.04 X10^3/uL; Eosinophils% 0.6 % (0-5); Hematocrit 35.5 % (40-54); Hemoglobin 12.2 g/dl (13.0-16.5); Lymphocyte % 21.5 % (19-41); Mean Corp Hgb Conc 34.4 g/gl (32-36); Mean Corpuscular Hgb 28.7 pg (27.0-32.0); Mean Corpuscular Volume 83.5 fL (80-94); Mean Platelet Vol. 8.5 fl (6.2-12.0); Monocyte# 0.66 X10^3/uL; Monocyte% 10.1 % (0-10); Neutrophil # 4.38 X10^3/uL (2.7-7.7); Neutrophil % 67.3 % (47-70); POSITIVE COUNT NO; POSITIVE DIFFERENTIAL NO; POSITIVE MORPHOLOGY NO; Platelet Count 254 K/mm3 (150-450); RBC Distribution Width CV 12.9 % (11.6-14.6); RBC Distribution Width SD 39.1 fl (35.1-43.9); Red Blood Count 4.25 M/mm3 (4.6-6.2); White Blood Count 6.5 K/mm3 (4.4-11.0)
[2018-02-08 03:39] LABS: Anion Gap 10 (5-15); BUN 22 mg/dL (7-18); BUN/Creat Ratio 22.3 RATIO (10-20); Calcium,Total 8.8 mg/dL (8.5-10.1); Chloride 102 mmol/L (98-107); Creatinine, Serum 0.98 mg/dL (0.70-1.30); EST Glomerular Filtration Rate 92 mL/min (>60); Est Glom Filt Rate - Afr Amer 111 mL/min (>60); Estimated Creatinine Clearance 112.05 ml/min; Glucose 86 mg/dL (74-106); Potassium 4.2 mmol/L (3.5-5.1); Sodium Level 137 mmol/L (136-145)
[2018-02-08 04:10] LABS: Lactic Acid 1.3 mmol/L (0.4-2.0)
[2018-02-08 04:36] LABS: Bedside Glucose 83 mg/dL (70-110)
[2018-02-08 06:46] LABS: Bedside Glucose 102 mg/dL (70-110)
[2018-02-08] MEDS: Dext 5%-0.45% NS 1,000 ML 150 ML IV ×2 (08:16→13:56)
--- NOTE | 2018-02-08 08:25 | PCM.PN.BLA ---
Progress Note Patient is a 37-year-old gentleman with history of diabetes mellitus type 1 with brittle control who was admitted with headache associated confusion and hypoglycemia. Patient's headache was attributed to his hypoglycemia. There was apparently an attempt for patient undergo lumbar puncture in the ED which was unsuccessful subsequently admitted to regular nursing floor Patient has been seen according to him his headache is easing up. Did not exhibit any signs of confusion. Plan is to monitor patient for 24 hours and if he spikes fever patient undergo fluoroscopic guided lumbar puncture by interventional radiology
[2018-02-08] MEDS: Insulin Lispro 100 UNIT/ML INSULN.PEN SQ ×2 (10:54→13:57)
[2018-02-08] MEDS: Ketorolac 15 MG/ML Vial IV ×2 (10:56→21:01)
[2018-02-08 11:11] LABS: Bedside Glucose 219 mg/dL (70-110)
[2018-02-08 14:21] LABS: Bedside Glucose 435 mg/dL (70-110)
[2018-02-08 16:31] LABS: Bedside Glucose 274 mg/dL (70-110)
[2018-02-08] MEDS: Insulin Lispro 100 UNIT/ML INSULN.PEN SC (16:33)
[2018-02-08 20:36] LABS: Bedside Glucose 171 mg/dL (70-110)
[2018-02-08] MEDS: hydroCHLOROthiazide 25 MG Tablet 12.5 MG PO (20:55)
[2018-02-08] MEDS: Lisinopril 10 MG Tablet PO (20:55)
[2018-02-08] MEDS: 0.9% NaCl Peripheral Flush Adult/Peds IV ×2 (21:01→23:30)
[2018-02-08] MEDS: hydrALAZINE 20 MG/ML Vial 10 MG IV (23:30)
[2018-02-09 00:20] LABS: Bedside Glucose 262 mg/dL (70-110)
[2018-02-09 04:21] VITALS: BP 117/76; PULSE 98; RESP 18; TEMP 36.6; O2SAT 97
[2018-02-09 04:25] LABS: Bedside Glucose 226 mg/dL (70-110)
[2018-02-09 07:23] VITALS: O2SAT 93
[2018-02-09 07:31] LABS: Bedside Glucose 101 mg/dL (70-110)
[2018-02-09 08:32] VITALS: BP 155/89; PULSE 93; RESP 16; TEMP 37.1; O2SAT 96
[2018-02-09 08:38] VITALS: PULSE 90; RESP 16
[2018-02-09] MEDS: Lisinopril 10 MG Tablet PO (10:28)
[2018-02-09] MEDS: hydroCHLOROthiazide 25 MG Tablet 12.5 MG PO (10:28)
--- NOTE | 2018-02-09 10:42 | DCINST_ITS ---
- Discharge Diagnoses Current Active Problems: Current Active and Chronic Problems 1. Hypoglycemia with history of type 1 diabetes mellitus 2. Intractable headache, neck pain 3. Hypertension 4. Obesity You will use the following diet at home:: No restrictions Discharge Activity: Return to Normal Activity Call your doctor if you observe: Fever of 101 or Higher, Numbness or Tingling, Shortness of breath, Dizziness, Fainting spells, Uncontrolled pain Allergies/Adverse Reactions: Allergies No Known Allergies Allergy (Verified 02/07/18 22:30) Medications to take at Discharge Insulin Aspart [Novolog Flexpen] 0 units SC TIDCM 09/06/15 Ibuprofen 600 mg PO DAILY 11/24/17 Hydrochlorothiazide [Hctz] 12.5 mg PO DAILY #30 tablet 02/09/18 Insulin Glargine,Hum.rec.anlog [Basaglar Kwikpen U-100] 20 unit SQ BID #0 02/09/18 Lisinopril [Zestril] 10 mg PO DAILY #30 tablet 02/09/18 The following prescriptions were given: Hydrochlorothiazide [Hctz] 12.5 mg PO DAILY #30 tablet Lisinopril [Zestril] 10 mg PO DAILY #30 tablet Primary Care Physician: Kristal Luke MD [Primary Care Provider] - Please follow up with your Primary Care Physician in: 3-5 Days Test Results: Test results from this visit will be discussed in further detail at your follow- up appointment, if applicable. Please Follow Up With: Rebeca Darden NP-C When: 1 Week Proposed Discharge Date: 02/09/18
--- NOTE | 2018-02-09 10:49 | PCM.DC.SUM ---
<Martha Hutchins - Last Filed: 02/09/18 11:00> Discharge Date and Diagnosis Date of Admission: 02/08/18 Date of Discharge: 02/09/18 - Primary Discharge Diagnosis Active and Suspected Problems 1. Hypoglycemia with history of type 1 diabetes mellitus, poorly controlled 2. Intractable headache, neck pain-suspected status migrainous-resolved 3. Hypertension, newly diagnosed 4. Obesity - Secondary Discharge Diagnosis Chronic Problems Hyperlipidemia (Chronic) History of anxiety (Chronic) DM type 1 (diabetes mellitus, type 1) (Chronic) Hospital Course and Treatment Imaging Results: Diagnostic Data Brain CT 02/07/18 22:47 IMPRESSION: Normal unenhanced CT scan of the brain. Electronically Signed: Anya Fontaine MD at 23:29 EST Tel , Service support , Chest X-Ray 02/07/18 22:47 IMPRESSION: Normal x-ray examination of the chest. Electronically Signed: Anya Fontaine MD at 23:57 EST Tel , Service support , Cervical Spine CT 02/08/18 01:11 IMPRESSION: Normal unenhanced CT examination of the cervical spine. No fracture. No disc disease. Electronically Signed: Jerrell Mas MD at 1:51 EST Tel , Service support , Operations: None Procedures: None Summary of Care Provided: The patient is a 37 year old M admitted 02/08/2018 due to hypoglycemia, headache and neck pain. He has a past medical history of type 1 diabetes mellitus, poorly controlled, obesity. He takes ibuprofen as needed at home for chronic neck pain. Patient reports his blood glucose is up and down at home. Hemoglobin A1c 10%. Patient's Basaglar changed from 40 units subcu at breakfast to 20 units subcu twice daily. He will continue sliding scale insulin 3 times daily. Will refer to dish person, CHIKIS darden for closer management. Patient without further episodes of hypoglycemia. Patient complained of intractable headache, neck pain on admission. He does report chronic neck pain as well. Brain CT unremarkable. CT of cervical spine normal, no fracture, no disc disease. Patient's headache improved with as needed Toradol. Suspect acute migraine. A lumbar puncture was attempted in the ER, unable to be completed. Patient without fever or leukocytosis. His headache has completely resolved. No further suspicion for meningitis. If patient has repeat headaches, recommend follow-up with primary care physician with possible referral to neurology. Patient's blood pressure elevated during admission. He was placed on lisinopril and HCTZ. He will need further monitoring of blood pressure as outpatient with medication adjustments to maintain goal blood pressure less than 120/80. Follow-up with primary care physician in 3-5 days. Follow-up with CHIKIS darden in 1-2 weeks. General: Alert, Oriented x3, Cooperative HEENT: Atraumatic, PERRLA, EOMI, Normocephalic Oral: Moist mucosa Neck: Supple, No JVD, Negative Carotid Bruits Lungs: Clear to auscultation, Normal air movement Cardiovascular: Regular rate, Regular Rhythm, Normal S1, Normal S2, No murmurs Abdomen: Bowel Sounds Present, Soft, Non Tender, Non-Distended Extremities: No edema, Capillary Refill Less than 3 Seconds Skin: No rashes, No breakdown Musculoskeletal: No Tenderness to Palpation of Joints or Extremities Neurological: Cranial nerves II-XII grossly intact, Neuro grossly intact, No neck rigidity. Psych/Mental Status: Normal Affect, Appropriate Patient seen exam prior to discharge. Physical assessment as noted above. Patient stable for discharge home with the follow-up her conditions as noted above. This patient was seen by RAVINDER Wiley under the supervision of Dr. Moctezuma. - Physical Exam Vital Signs Temp Pulse Resp BP Pulse Ox 98.8 F 90 16 155/89 H 96 02/09/18 08:32 02/09/18 08:38 02/09/18 08:38 02/09/18 08:32 02/09/18 08:32 Oxygen Delivery Method Room Air Weight: 203 lb Body Mass Index (BMI) 28.3 Finger Stick Blood Glucose 132 Intake and Output for Last 24 Hours 02/07/18 02/08/18 02/09/18 23:59 23:59 23:59 Intake Total 2748 / 2748 Output Total 1000 / 1000 Balance 1748 / 1748 Microbiology Past 72 Hours 02/08/18 01:32 Respiratory Panel (PCR) - Final Mucosa - Nasopharyngeal POC Glucose 02/09/18 02/09/18 02/08/18 07:24 04:18 23:23 POC Glucose 101 226 H 262 H 02/08/18 02/08/18 02/08/18 20:27 16:22 13:54 POC Glucose 171 H 274 H 435 H 02/08/18 10:50 POC Glucose 219 H Discharge Diet: Carb Control Diet Discharge Activity: Return to Normal Activity Call your doctor if you observe: Fever of 101 or Higher, Numbness or Tingling, Shortness of breath, Dizziness, Fainting spells, Uncontrolled pain Home Medications: Medications to take at Discharge Insulin Aspart [Novolog Flexpen] 0 units SC TIDCM 09/06/15 Ibuprofen 600 mg PO DAILY 11/24/17 Cyclobenzaprine [Flexeril] 10 mg PO TID #10 tablet 02/09/18 Hydrochlorothiazide [Hctz] 12.5 mg PO DAILY #30 tablet 02/09/18 Insulin Glargine,Hum.rec.anlog [Basaglar Kwikpen U-100] 20 unit SQ BID #0 02/09/18 Lisinopril [Zestril] 10 mg PO DAILY #30 tablet 02/09/18 Following Prescrptions Were Given to Patient: Hydrochlorothiazide [Hctz] 12.5 mg PO DAILY #30 tablet Lisinopril [Zestril] 10 mg PO DAILY #30 tablet Cyclobenzaprine [Flexeril] 10 mg PO TID #10 tablet Primary Care Physician: Kristal Luke MD [Primary Care Provider] - Please follow up with your Primary Care Physician in: 3-5 Days Please Follow Up With: Rebeca Darden NP-C When: 1 Week Disposition: Home Minutes spent on discharge:: 35 Patient Condition:: Stable Medical Necessity - Tobacco Use Smoking Status: Never smoker Meaningful Use Info Meaningful Use Diagnoses (Choose all that apply): None applicable <Gena Moctezuma E - Last Filed: 02/09/18 12:17> Discharge Date and Diagnosis - Secondary Discharge Diagnosis Chronic Problems Hyperlipidemia (Chronic) History of anxiety (Chronic) DM type 1 (diabetes mellitus, type 1) (Chronic) Hospital Course and Treatment Summary of Care Provided: Hospitalist note: Discharge summary were reviewed and I agree with above discharge plan. Patient was admitted for hypoglycemia, headache and neck pain. He does have a history of type 1 diabetes mellitus. His main presenting complaint was a headache and neck pain. CT scan brain done and revealed no acute findings. CT scan cervical spine also done and showed no acute findings, no fractures or dislocations. Upon admission, there is a concern that patient may have acute meningitis which is clinically very unlikely.. Patient remained afebrile throughout admission. He has no leukocytosis. Lumbar puncture attempted in the ED and was unsuccessful. His routine blood work was remarkable for potassium 3.4, otherwise normal. LFT was normal. Chest x-ray showed no acute findings. Upon admission, his blood sugar was 48 and he admitted not eating or drinking because of pain and headache and he took his long-acting insulin on the day of admission. Patient was monitored in the floor, remained afebrile throughout admission. His blood pressure was elevated for which he was diagnosed with hypertension and started on HCTZ and lisinopril. His headache and neck pain improved with Tylenol. Based on clinical scenario, meningitis is very unlikely as patient has been afebrile throughout admission and has no leukocytosis and also his symptoms improved including headache and neck pain. Patient discharged home in a stable medical condition, started on HCTZ and lisinopril for newly diagnosed hypertension, continued on home doses of insulin, recommended to follow-up with PCP in 1 week. - Physical Exam General: Alert, Oriented x3, Cooperative, No apparent distress. HEENT: Atraumatic, PERRLA, EOMI. Neck: Supple, No JVD, Negative Carotid Bruits, Trachea Midline, Thyroid Normal. Lungs: Clear to auscultation, Normal air movement, No rhonchi, No wheeze, No rales. Cardiovascular: Regular rate, Regular Rhythm, Normal S1, Normal S2, PMI Normal. Abdomen: Bowel Sounds Present, Soft, Non Tender, Non-Distended, No Hepato-splenomegaly. Extremities: No clubbing, No cyanosis, No edema Skin: No rashes, No breakdown Neurological: Neuro grossly intact This note was generated with [employer] software. It may contain incorrect words, spelling, and punctuation that were not noted in checking the note before signing. - Physical Exam Vital Signs Temp Pulse Resp BP Pulse Ox 98.6 F 106 H 16 148/95 H 98 02/09/18 11:53 02/09/18 11:53 02/09/18 11:53 02/09/18 11:53 02/09/18 11:53 Oxygen Delivery Method Room Air Weight: 203 lb Body Mass Index (BMI) 28.3 Finger Stick Blood Glucose 132 Intake and Output for Last 24 Hours 02/07/18 02/08/18 02/09/18 23:59 23:59 23:59 Intake Total 2748 / 2748 Output Total 1000 / 1000 Balance 1748 / 1748 Microbiology Past 72 Hours 02/08/18 01:32 Respiratory Panel (PCR) - Final Mucosa - Nasopharyngeal POC Glucose 02/09/18 02/09/18 02/09/18 11:41 07:24 04:18 POC Glucose 160 H 101 226 H 02/08/18 02/08/18 02/08/18 23:23 20:27 16:22 POC Glucose 262 H 171 H 274 H 02/08/18 13:54 POC Glucose 435 H Meaningful Use Info Meaningful Use Diagnoses (Choose all that apply): None applicable Code Visit OBSV E&M: 35926 Observation care discharge
--- NOTE | 2018-02-09 11:00 | DS.PCM_ITS ---
<Martha Hutchins - Last Filed: 02/09/18 11:00> Discharge Date and Diagnosis Date of Admission: 02/08/18 Date of Discharge: 02/09/18 - Primary Discharge Diagnosis Active and Suspected Problems 1. Hypoglycemia with history of type 1 diabetes mellitus, poorly controlled 2. Intractable headache, neck pain-suspected status migrainous-resolved 3. Hypertension, newly diagnosed 4. Obesity - Secondary Discharge Diagnosis Chronic Problems Hyperlipidemia (Chronic) History of anxiety (Chronic) DM type 1 (diabetes mellitus, type 1) (Chronic) Hospital Course and Treatment Imaging Results: Diagnostic Data Brain CT 02/07/18 22:47 IMPRESSION: Normal unenhanced CT scan of the brain. Electronically Signed: Anya Fontaine MD at 23:29 EST Tel , Service support , Chest X-Ray 02/07/18 22:47 IMPRESSION: Normal x-ray examination of the chest. Electronically Signed: Anya Fontaine MD at 23:57 EST Tel , Service support , Cervical Spine CT 02/08/18 01:11 IMPRESSION: Normal unenhanced CT examination of the cervical spine. No fracture. No disc disease. Electronically Signed: Jerrell Mas MD at 1:51 EST Tel , Service support , Operations: None Procedures: None Summary of Care Provided: The patient is a 37 year old M admitted 02/08/2018 due to hypoglycemia, headache and neck pain. He has a past medical history of type 1 diabetes mellitus, poorly controlled, obesity. He takes ibuprofen as needed at home for chronic neck pain. Patient reports his blood glucose is up and down at home. Hemoglobin A1c 10%. Patient's Basaglar changed from 40 units subcu at breakfast to 20 units subcu twice daily. He will continue sliding scale insulin 3 times daily. Will refer to [employer], CHIKIS darden for closer management. Patient without further episodes of hypoglycemia. Patient complained of intractable headache, neck pain on admission. He does report chronic neck pain as well. Brain CT unremarkable. CT of cervical spine normal, no fracture, no disc disease. Patient's headache improved with as needed Toradol. Suspect acute migraine. A lumbar puncture was attempted in the ER, unable to be completed. Patient without fever or leukocytosis. His headache has completely resolved. No further suspicion for meningitis. If patient has repeat headaches, recommend follow-up with primary care physician with possible referral to neurology. Patient's blood pressure elevated during admission. He was placed on lisinopril and HCTZ. He will need further monitoring of blood pressure as outpatient with medication adjustments to maintain goal blood pressure less than 120/80. Follow-up with primary care physician in 3-5 days. Follow-up with CHIKIS darden in 1-2 weeks. General: Alert, Oriented x3, Cooperative HEENT: Atraumatic, PERRLA, EOMI, Normocephalic Oral: Moist mucosa Neck: Supple, No JVD, Negative Carotid Bruits Lungs: Clear to auscultation, Normal air movement Cardiovascular: Regular rate, Regular Rhythm, Normal S1, Normal S2, No murmurs Abdomen: Bowel Sounds Present, Soft, Non Tender, Non-Distended Extremities: No edema, Capillary Refill Less than 3 Seconds Skin: No rashes, No breakdown Musculoskeletal: No Tenderness to Palpation of Joints or Extremities Neurological: Cranial nerves II-XII grossly intact, Neuro grossly intact, No neck rigidity. Psych/Mental Status: Normal Affect, Appropriate Patient seen exam prior to discharge. Physical assessment as noted above. Patient stable for discharge home with the follow-up her conditions as noted above. This patient was seen by RAVINDER Wiley under the supervision of Dr. Moctezuma. - Physical Exam Vital Signs Temp Pulse Resp BP Pulse Ox 98.8 F 90 16 155/89 H 96 02/09/18 08:32 02/09/18 08:38 02/09/18 08:38 02/09/18 08:32 02/09/18 08:32 Oxygen Delivery Method Room Air Weight: 203 lb Body Mass Index (BMI) 28.3 Finger Stick Blood Glucose 132 Intake and Output for Last 24 Hours 02/07/18 02/08/18 02/09/18 23:59 23:59 23:59 Intake Total 2748 / 2748 Output Total 1000 / 1000 Balance 1748 / 1748 Microbiology Past 72 Hours 02/08/18 01:32 Respiratory Panel (PCR) - Final Mucosa - Nasopharyngeal POC Glucose 02/09/18 02/09/18 02/08/18 07:24 04:18 23:23 POC Glucose 101 226 H 262 H 02/08/18 02/08/18 02/08/18 20:27 16:22 13:54 POC Glucose 171 H 274 H 435 H 02/08/18 10:50 POC Glucose 219 H Discharge Diet: Carb Control Diet Discharge Activity: Return to Normal Activity Call your doctor if you observe: Fever of 101 or Higher, Numbness or Tingling, Shortness of breath, Dizziness, Fainting spells, Uncontrolled pain Home Medications: Medications to take at Discharge Insulin Aspart [Novolog Flexpen] 0 units SC TIDCM 09/06/15 Ibuprofen 600 mg PO DAILY 11/24/17 Cyclobenzaprine [Flexeril] 10 mg PO TID #10 tablet 02/09/18 Hydrochlorothiazide [Hctz] 12.5 mg PO DAILY #30 tablet 02/09/18 Insulin Glargine,Hum.rec.anlog [Basaglar Kwikpen U-100] 20 unit SQ BID #0 02/09/18 Lisinopril [Zestril] 10 mg PO DAILY #30 tablet 02/09/18 Following Prescrptions Were Given to Patient: Hydrochlorothiazide [Hctz] 12.5 mg PO DAILY #30 tablet Lisinopril [Zestril] 10 mg PO DAILY #30 tablet Cyclobenzaprine [Flexeril] 10 mg PO TID #10 tablet Primary Care Physician: Kristal Luke MD [Primary Care Provider] - Please follow up with your Primary Care Physician in: 3-5 Days Please Follow Up With: Rebeca Darden NP-C When: 1 Week Disposition: Home Minutes spent on discharge:: 35 Patient Condition:: Stable Medical Necessity - Tobacco Use Smoking Status: Never smoker Meaningful Use Info Meaningful Use Diagnoses (Choose all that apply): None applicable <Gena Moctezuma E - Last Filed: 02/09/18 12:17> Discharge Date and Diagnosis - Secondary Discharge Diagnosis Chronic Problems Hyperlipidemia (Chronic) History of anxiety (Chronic) DM type 1 (diabetes mellitus, type 1) (Chronic) Hospital Course and Treatment Summary of Care Provided: Hospitalist note: Discharge summary were reviewed and I agree with above discharge plan. Patient was admitted for hypoglycemia, headache and neck pain. He does have a history of type 1 diabetes mellitus. His main presenting complaint was a headache and neck pain. CT scan brain done and revealed no acute findings. CT scan cervical spine also done and showed no acute findings, no fractures or dislocations. Upon admission, there is a concern that patient may have acute meningitis which is clinically very unlikely.. Patient remained afebrile throughout admission. He has no leukocytosis. Lumbar puncture attempted in the ED and was unsuccessful. His routine blood work was remarkable for potassium 3.4, otherwise normal. LFT was normal. Chest x-ray showed no acute findings. Upon admission, his blood sugar was 48 and he admitted not eating or drinking because of pain and headache and he took his long-acting insulin on the day of admission. Patient was monitored in the floor, remained afebrile throughout admission. His blood pressure was elevated for which he was diagnosed with hypertension and started on HCTZ and lisinopril. His headache and neck pain improved with Tylenol. Based on clinical scenario, meningitis is very unlikely as patient has been afebrile throughout admission and has no leukocytosis and also his symptoms improved including headache and neck pain. Patient discharged home in a stable medical condition, started on HCTZ and lisinopril for newly diagnosed hypertension, continued on home doses of insulin, recommended to follow-up with PCP in 1 week. - Physical Exam General: Alert, Oriented x3, Cooperative, No apparent distress. HEENT: Atraumatic, PERRLA, EOMI. Neck: Supple, No JVD, Negative Carotid Bruits, Trachea Midline, Thyroid Normal. Lungs: Clear to auscultation, Normal air movement, No rhonchi, No wheeze, No rales. Cardiovascular: Regular rate, Regular Rhythm, Normal S1, Normal S2, PMI Normal. Abdomen: Bowel Sounds Present, Soft, Non Tender, Non-Distended, No Hepato- splenomegaly. Extremities: No clubbing, No cyanosis, No edema Skin: No rashes, No breakdown Neurological: Neuro grossly intact This note was generated with [employer] software. It may contain incorrect words, spelling, and punctuation that were not noted in checking the note before signing. - Physical Exam Vital Signs Temp Pulse Resp BP Pulse Ox 98.6 F 106 H 16 148/95 H 98 02/09/18 11:53 02/09/18 11:53 02/09/18 11:53 02/09/18 11:53 02/09/18 11:53 Oxygen Delivery Method Room Air Weight: 203 lb Body Mass Index (BMI) 28.3 Finger Stick Blood Glucose 132 Intake and Output for Last 24 Hours 02/07/18 02/08/18 02/09/18 23:59 23:59 23:59 Intake Total 2748 / 2748 Output Total 1000 / 1000 Balance 1748 / 1748 Microbiology Past 72 Hours 02/08/18 01:32 Respiratory Panel (PCR) - Final Mucosa - Nasopharyngeal POC Glucose 02/09/18 02/09/18 02/09/18 11:41 07:24 04:18 POC Glucose 160 H 101 226 H 02/08/18 02/08/18 02/08/18 23:23 20:27 16:22 POC Glucose 262 H 171 H 274 H 02/08/18 13:54 POC Glucose 435 H Meaningful Use Info Meaningful Use Diagnoses (Choose all that apply): None applicable Code Visit OBSV E&M: 76710 Observation care discharge
[2018-02-09 11:03] VITALS: BP 138/72
[2018-02-09] MEDS: Insulin Lispro 100 UNIT/ML INSULN.PEN SC (11:42)
[2018-02-09 11:51] LABS: Bedside Glucose 160 mg/dL (70-110)
[2018-02-09 11:53] VITALS: BP 148/95; PULSE 106; RESP 16; TEMP 37; O2SAT 98
== END 2018-02-09 12:25 | disposition home or self-care (01) ==
LOC: ED 23:05 → MS3 02-08 01:31
PROVIDERS: Internal Medicine; Admitting Provider Internal Medicine; Emergency Provider Emergency Medicine; Family Provider Internal Medicine; PCP Internal Medicine; Visit Provider Hospitalist
DX: E10.65 Type 1 diabetes mellitus with hyperglycemia (principal); E10.649 Type 1 diabetes mellitus with hypoglycemia without coma; R51 Headache; M54.2 Cervicalgia; I10 Essential (primary) hypertension; E66.9 Obesity, unspecified; Z68.28 Body mass index [BMI] 28.0-28.9, adult; Z71.3 Dietary counseling and surveillance; Z23 Encounter for immunization; Z79.4 Long term (current) use of insulin
CPT/HCPCS: 36415; 70450; 71045; 72125; 80048; 80053; 81001; 82962; 83036; 83605; 85025; 85610; 87633; 93005; 96361; 96374; 96375; 96376; 99218; 99283; J7030; 90686; A4216; G0378; J2405; J7799

== ENCOUNTER 2018-03-07 16:06 | Emergency (ER) | payer MEDICAID, SELFPAY ==
[2018-03-07 16:07] VITALS: PULSE 74; RESP 17; BMI 29.6
[2018-03-07] MEDS: Dextrose 50%-Water 25 GM/50 ML DISP.SYRIN IV (16:09)
[2018-03-07 16:16] LABS: Bedside Glucose 33 mg/dL (70-110)
[2018-03-07 16:19] VITALS: BP 178/125; PULSE 98; RESP 15; O2SAT 100
[2018-03-07 16:21] LABS: Bedside Glucose 144 mg/dL (70-110)
--- NOTE | 2018-03-07 16:21 | ED.VISSUMM ---
- ER Visit Summary Date of Service: 03/07/18 Chief Complaint: Hypoglycemia History of Present Illness: The patient is a 37 M who presents with hypoglycemia. Patient was driving erratically and the police were able to pull him over. He had an altered mental status with a called EMS. His BGT was low. They were unable to establish an IV so he was given 1 mg of glucagon IM. He was admitted here last month for hypoglycemia and a headache. They rearranged his insulin doses so he would have 20 in the morning and 20 at night. Family states that he is a brittle diabetic. Physical Examination: Vital signs reviewed. Patient has his eyes open but does not answer any questions. HEENT is unremarkable. Heart is regular rate and rhythm. Lungs are clear to auscultation. Abdomen soft and nontender. Extremities reveal no edema. Neurologic exam the patient is lethargic and does not answer questions. He does move all extremities equally. Test Results: Initial blood sugar was 33 Emergency Department Course and Treatment: Patient was given D50 IV. Blood sugar was 144 afterwards. His mental status improved and was able to answer all questions. He states they were waiting for him to eat at a restaurant and he may not have eaten today. Patient will be observed in the emergency department. He will be given a diet to eat. He will need to follow-up with his PCP. Treatment Plan: [] Disposition: Discharge Impression: Hypoglycemia This note was generated with [employer] dictation software. It may contain incorrect words, spelling, and punctuation that were not noted in review of the chart prior to signing ED Disposition - Plan for ED Patient: Chief Complaint: Hypoglycemia Referrals: Kristal Luke MD [Primary Care Provider] -
--- NOTE | 2018-03-07 16:24 | ED.DEP ---
ED Disposition - Plan for ED Patient: Disposition: Home or Assisted Living Chief Complaint: Hypoglycemia Instructions: ED Diabetes Hypoglycemia Insulin React Referrals: Kristal Luke MD [Primary Care Provider] -
[2018-03-07 17:11] LABS: Bedside Glucose 191 mg/dL (70-110)
== END 2018-03-07 17:53 | disposition home or self-care (01) ==
PROVIDERS: Emergency Provider Emergency Medicine; Family Provider Internal Medicine; PCP Internal Medicine
DX: E10.649 Type 1 diabetes mellitus with hypoglycemia without coma (principal); Z79.4 Long term (current) use of insulin
CPT/HCPCS: 82962; 96374; 99284; J7030; A4216; J1610

== ENCOUNTER 2018-04-27 09:19 | Inpatient (IN) | payer MEDICAID, SELFPAY ==
[2018-04-27] VITALS (21 sets, daily range): BP systolic 92–185; BP diastolic 54–96; PULSE 98–125; RESP 16–25; TEMP 36.8–36.9; O2SAT 96–100; BMI 28.5; BMI 28.0; BMI 28.1
--- NOTE | 2018-04-27 09:28 | ED.RN ---
PT C/O BAD ACHES, FEELS WEAK.
--- NOTE | 2018-04-27 09:30 | EKG12_ITS ---
Test Reason : CP Blood Pressure : / mmHG Vent. Rate : 110 BPM Atrial Rate : 110 BPM P-R Int : 150 ms QRS Dur : 086 ms QT Int : 338 ms P-R-T Axes : 056 084 055 degrees QTc Int : 457 ms Sinus tachycardia Otherwise normal ECG Confirmed by CLAUDIA LACEY, LUIS CARLOS ([id number]), supervising film or videotape editor JF AUGUST ([id number]) on 04/30/2018 8:11:48 AM Referred By: SONA Confirmed By:LUIS CARLOS TAYLOR MD
[2018-04-27] MEDS: 0.9% Normal Saline 1,000 ML 1000 ML IV ×2 (10:00→11:37)
[2018-04-27] MEDS: Ketorolac 15 MG/ML Vial IV (10:04)
[2018-04-27] MEDS: Ondansetron 4 MG/2 ML Vial IV (10:04)
--- NOTE | 2018-04-27 10:06 | ED.VISSUMM ---
- ER Visit Summary Date of Service: 04/27/18 Chief Complaint: Possible ketoacidosis History of Present Illness: The patient is a 37 M presenting for evaluation due to concern for diabetic ketoacidosis. Patient is a well-controlled type I diabetic. He reports that over the course the last 5 days he has had flulike symptoms. These are associated with cough generalized myalgias and generalized illness. He reports that today he developed nausea and vomiting up to 3 episodes of nonbloody nonbilious emesis. He states that he is starting to feel dehydrated, as if he potentially is acidotic. He denies any presence of diarrhea. He denies any current fevers. Review of systems otherwise negative. Physical Examination: Vital signs are within normal limits except for tachycardia with a rate of 110, patient is afebrile. General: Patient is well-nourished well-developed and in no acute distress. Head: Normocephalic, atraumatic Eyes: Pupils equal round and reactive bilaterally, extra occular motion intact bialterally ENT: I mucous membranes Neck: Supple, no lymphadenopathy, no JVD, no meningismus CVS: Heart regular rhythm with mild tachycardia, no murmurs, rubs or gallops, radial pulses 2+ bilaterally Resp: Respirations nondistressed, lung sounds clear bilaterally Abdomen: Soft, nontender, nondistended, no palpable masses, normal bowel sounds Back: Nontender Extremities: Nontender, atraumatic, active full range of motion, no peripheral edema Skin: warm, no rashes, no petechia Neuro: Alert and oriented x 4, CN 2-12 intact, no lateralizing neurological defecits Psyc: Normal affect Test Results: BGT is greater than 600, metabolic panel demonstrates anion gap of 28 bicarb of 12 potassium 5.1 and a glucose in the 600s. Ketones were positive. Emergency Department Course and Treatment: Patient presented due to concern for DKA. As noted above, patient's workup confirmed this. I was not able to identify any specific infectious etiology. Patient was given 2 L normal saline Zofran Toradol initially, and then was started on a insulin drip. Patient will be admitted to the intensive care unit. Disposition: Admission Impression: 1. DKA Critical care time 35 minutes This note was generated with [employer] dictation software. It may contain incorrect words, spelling, and punctuation that were not noted in review of the chart prior to signing ED Disposition - Plan for ED Patient: Chief Complaint: Nausea/Vomiting Referrals: Kristal Luke MD [Primary Care Provider] -
[2018-04-27 10:15] LABS: Absolute Lymphocyte Count 1.01 X10^3/ul (0.83-4.51); Absolute Neutrophil Count 5.9 X10^3/uL (2.0-7.7); Basophil# 0.03 X10^3/uL; Basophil% 0.4 % (0-1); Eosinophil# 0.03 X10^3/uL; Eosinophils% 0.4 % (0-5); Hematocrit 40.3 % (40-54); Hemoglobin 13.2 g/dl (13.0-16.5); Lymphocyte # 1.01 X10^3/ul (4.0); Lymphocyte % 13.5 % (19-41); Mean Corp Hgb Conc 32.8 g/gl (32-36); Mean Corpuscular Hgb 29.2 pg (27.0-32.0); Mean Corpuscular Volume 89.2 fL (80-94); Mean Platelet Vol. 9.2 fl (6.2-12.0); Monocyte# 0.48 X10^3/uL; Monocyte% 6.4 % (0-10); Neutrophil # 5.91 X10^3/uL (2.7-7.7); Platelet Count 330 K/mm3 (150-450); RBC Distribution Width CV 13.1 % (11.6-14.6); RBC Distribution Width SD 42.2 fl (35.1-43.9); Red Blood Count 4.52 M/mm3 (4.6-6.2); White Blood Count 7.5 K/mm3 (4.4-11.0)
[2018-04-27 10:17] LABS: POSITIVE COUNT NO; POSITIVE DIFFERENTIAL NO; POSITIVE MORPHOLOGY NO
--- NOTE | 2018-04-27 10:20 | RAD_ITS ---
STUDY: X-RAY CHEST REASON FOR EXAM: Male, 37 years old. Coughing since TECHNIQUE: Frontal and lateral views of the chest. COMPARISON: 02/07/2018 FINDINGS: The lungs are clear and expanded. There is no demonstrated pleural abnormality. Normal size heart. Normal mediastinum and yamini. Normal visualized pulmonary arteries. Normal visualized aortic arch and descending thoracic aorta. Normal visualized thoracic spine. Normal visualized ribs, clavicles, and shoulders. There is no demonstrated abnormality of the visualized soft tissue structures of the upper abdomen. RAD/Chest PA and Lateral IMPRESSION: Normal x-ray examination of the chest. Electronically Signed: Julian Benites MD at 10:35 EST Tel , Service support ,
[2018-04-27 10:31] LABS: Phosphorus 4.8 mg/dL (2.5-4.9)
--- NOTE | 2018-04-27 10:36 | ED.RN ---
per md, cancel sepsis screen.
[2018-04-27 10:52] LABS: ALB/GLOB Ratio 0.7 RATIO (0.9-2.4); AST(SGOT) 99 U/L (15-37); Alanine Aminotransfer ALT/SGPT 101 U/L (16-61); Albumin, Serum 3.3 g/dL (3.2-5.0); Alkaline Phosphatase 167 U/L (45-117); Anion Gap 28 (5-15); BUN 23 mg/dL (7-18); BUN/Creat Ratio 14.9 RATIO (10-20); Calcium,Total 9.3 mg/dL (8.5-10.1); Chloride 89 mmol/L (98-107); Creatinine, Serum 1.54 mg/dL (0.70-1.30); EST Glomerular Filtration Rate 55 mL/min (>60); Est Glom Filt Rate - Afr Amer 66 mL/min (>60); Estimated Creatinine Clearance 71.31 ml/min; Globulin 4.6 g/dL (2.2-4.2); Glucose 670 mg/dL (74-106); Magnesium 2.2 mg/dL (1.6-2.6); Potassium 5.1 mmol/L (3.5-5.1); Protein, Total 7.9 g/dL (6.4-8.2); Sodium Level 129 mmol/L (136-145)
--- NOTE | 2018-04-27 10:53 | ED.RN ---
LAB CALLS WITH CRITICAL RESULT, GLUCOSE 670, DR. MAGALLANES MADE AWARE.
[2018-04-27 11:23] LABS: Lactic Acid 1.7 mmol/L (0.4-2.0)
--- NOTE | 2018-04-27 11:31 | PCM.HP.STD ---
Problem List (1) DKA (diabetic ketoacidoses) Status: Acute Qualifiers: Diabetes mellitus type: type 1 Diabetes mellitus complication detail: without coma Qualified Code(s): E10.10 - Type 1 diabetes mellitus with ketoacidosis without coma (2) Hyperlipidemia Status: Chronic Qualifiers: Hyperlipidemia type: unspecified Qualified Code(s): E78.5 - Hyperlipidemia, unspecified (3) History of anxiety Status: Chronic (4) DM type 1 (diabetes mellitus, type 1) Status: Chronic Qualifiers: Diabetes mellitus complication status: with unspecified complications Qualified Code(s): E10.8 - Type 1 diabetes mellitus with unspecified complications History of Present Illness Date of Admission: 04/27/18 Chief Complaint: Generalised weakness - few days The patient is a 37 year old M with PMHx of Type 1 DM, hypertension who comes in with complains of generalised weakness and upper respiratory symptoms. Patient says he has been compliant with his medications. He denied fever or chills, dizziness or SOB. He complains of nasal congestion, sore throat and cough, generalised body aches nausea and vomiting. Vitals in the ED show T 98.4F, HR 116, BP 134/89, RR 16, spo2 97 % on RA. Admitting CBCD was unremarkable. BMp shows Na 129, K 5.1, Cl 89, HCO3 12, BUN 23, Cr 1.54, Glucose 670, Lactic acid 1.7, Phos 4.8, Mag 2.2 Admitting chest x-ray is negative. Past Medical History Past Medical History (Chronic Problems): Chronic Problems Hyperlipidemia (Chronic) History of anxiety (Chronic) DM type 1 (diabetes mellitus, type 1) (Chronic) Allergies No Known Allergies Allergy (Verified 03/07/18 16:06) Home Medications: Ambulatory Orders Medication Instructions Recorded Insulin Aspart [Novolog Flexpen] 0 units SC TIDCM 09/06/15 Ibuprofen 600 mg PO DAILY 11/24/17 Cyclobenzaprine [Flexeril] 10 mg PO TID #10 tablet 02/09/18 Hydrochlorothiazide [Hctz] 12.5 mg PO DAILY #30 tablet 02/09/18 Insulin Glargine,Hum.rec.anlog 20 unit SQ BID #0 02/09/18 [Basaglar Kwikpen U-100] Lisinopril [Zestril] 10 mg PO DAILY #30 tablet 02/09/18 Gabapentin [Neurontin] 800 mg PO DAILY 04/27/18 Surgical History: - - RLE I+D secondary to abscess, noted was staph. Psychiatric History: Anxiety Lives: Alone Smoking Status: Never smoker Tobacco Use: Non-smoker Alcohol: None Drugs: None - *Family History Maternal History Items: Diabetes Paternal History Items: Diabetes, Heart Disease Sibling History Items: No pertinent history Review of Systems Constitutional: Reports: Anorexia, Malaise, Weakness, Fatigue. Denies: Chills, Fever, Night Sweats, Weight Change Eyes: Denies: Blurred vision, Cataracts, Conjunctivae Inflammation, Double vision, Pain, Redness, Vision Change HEENT: Reports: Nasal Congestion, Sore Throat. Denies: Difficulty Hearing, Difficulty Swallowing, Head Aches, Hearing Changes, Sinus Congestion, Sinus Drainage, Visual Changes Cardiovascular: Denies: Chest Pain, Claudication, Chest Pressure, Orthopnea, Palpitations, Paroxysmal Noc. Dyspnea Respiratory: Denies: Cough, Hemoptysis, Pleuritic Pain, Shortness of Breath, Shortness of breath at rest, Shortness of breath upon exertion, Sputum production, Wheezing Gastrointestinal: Denies: Abdominal Pain, Constipation, Hematemesis, Hematochezia, Nausea, Vomiting Genitourinary: Denies: Dysuria, Frequency, Incontinence, Nocturia Musculoskeletal: Denies: Joint Pain, Joint stiffness, Joint swelling, Joint Tenderness, Muscle pain Skin: Denies: Dryness, Rash, Wounds Neurological: Denies: Numbness, Tingling, Focal weakness Psychiatric: Denies: Anxiety, Depression, Homicidal Ideations, Suicidal Ideations Hematologic/ Lymphatic: Denies: Easy Bruising, Easy Bleeding VTE Information - Inpt Only VTE Present on Admission: No VTE Pharm Prophylaxis ordered?: Yes - Physical Exam General: Alert, Oriented x3, Cooperative, No apparent distress HEENT: Atraumatic, PERRLA, EOMI, Normocephalic Oral: Dry Mucosa Neck: Supple, No JVD, Negative Carotid Bruits Lungs: Clear to auscultation, Normal air movement Cardiovascular: Regular rate, Regular Rhythm, Normal S1, Normal S2, No murmurs Abdomen: Bowel Sounds Present, Soft, Non Tender, Non-Distended, No Hepato-splenomegaly, Passing Flatus Extremities: No edema, Capillary Refill Less than 3 Seconds Skin: No rashes, No breakdown Musculoskeletal: No Tenderness to Palpation of Joints or Extremities Lymphatic: No Cervical, Supraclavicular, or Inguinal Adenopathy Neurological: Cranial nerves II-XII grossly intact, Neuro grossly intact Psych/Mental Status: Normal Affect, Appropriate Vital Signs Temp Pulse Resp BP Pulse Ox 98.4 F 113 H 22 H 170/96 H 98 04/27/18 09:47 04/27/18 11:13 04/27/18 11:13 04/27/18 11:13 04/27/18 11:13 Oxygen Delivery Method Room Air Weight: 92.986 kg Body Mass Index (BMI) 28.5 Finger Stick Blood Glucose 191 Microbiology Past 72 Hours 04/27/18 09:50 Influenza Types A,B Direct FA (JAG) - Final Mucosa - Nasopharyngeal Laboratory Tests Past 24 Hrs 04/27/18 04/27/18 04/27/18 10:05 10:05 10:05 WBC 7.5 RBC 4.52 L Hgb 13.2 Hct 40.3 MCV 89.2 MCH 29.2 MCHC 32.8 RDW 13.1 RDW Differential 42.2 Plt Count 330 MPV 9.2 Immature Gran % (Auto) 0.300 Neut % (Auto) 79.0 H Lymph % (Auto) 13.5 L [place] % (Auto) 6.4 Eos % (Auto) 0.4 Baso % (Auto) 0.4 Absolute Neuts (auto) 5.9 Absolute Lymphs (auto) 1.01 Total Counted Not Reportable Sodium 129 L Potassium 5.1 Chloride 89 L Carbon Dioxide 12.0 L Anion Gap 28 H BUN 23 H Creatinine 1.54 H Estim Creat Clear Calc 71.31 Est GFR (MDRD) Af Amer 66 Est GFR (MDRD) Non-Af 55 L BUN/Creatinine Ratio 14.9 Glucose 670 H* Lactic Acid Calcium 9.3 Phosphorus Magnesium 2.2 Total Bilirubin 0.70 AST 99 H ALT 101 H Alkaline Phosphatase 167 H Total Protein 7.9 Albumin 3.3 Globulin 4.6 H Albumin/Globulin Ratio 0.7 L Acetone Level MODERATE H 04/27/18 04/27/18 10:05 10:05 WBC RBC Hgb Hct MCV MCH MCHC RDW RDW Differential Plt Count MPV Immature Gran % (Auto) Neut % (Auto) Lymph % (Auto) [place] % (Auto) Eos % (Auto) Baso % (Auto) Absolute Neuts (auto) Absolute Lymphs (auto) Total Counted Sodium Potassium Chloride Carbon Dioxide Anion Gap BUN Creatinine Estim Creat Clear Calc Est GFR (MDRD) Af Amer Est GFR (MDRD) Non-Af BUN/Creatinine Ratio Glucose Lactic Acid 1.7 Calcium Phosphorus 4.8 Magnesium Total Bilirubin AST ALT Alkaline Phosphatase Total Protein Albumin Globulin Albumin/Globulin Ratio Acetone Level Assessment/Plan All Active Problems DKA (diabetic ketoacidoses) (Acute) Headache and neck pain (Acute) Hypoglycemia (Acute) 37 year old M with PMHx of Type 1 DM, hypertension who comes in with complains of generalised weakness and upper respiratory symptoms. Patient says he has been compliant with his medications. 1. Acute DKA in a type 1 DM patient, likely secondary to acute respiratory illness, influenza negative, stable vitals, anion gap is 28 Plan: Admit to ICU, IVF, monitor on DKA protocol, respiratory panel, accucheks per protocol. 2. ANN secondary to dehydration, Cr is 1.54, on IV fluids, will hold HCTZ, Lisinopril, ibuprofen, BMP in am 3. Type 1 DM, last reported HbA1c is 9.4, now in DKA, will manage per #1 4. Hypertension, fairly controlled, Lisinopril, HCTZ on hold, will continue to monitor, hydralazine prn. 5. DVT Ppx- early ambulation Code Visit Inpatient E&M: 97955 Init Hosp L3
[2018-04-27 11:45] LABS: Bedside Glucose > 500 mg/dL (70-110)
--- NOTE | 2018-04-27 12:00 | ED.RN ---
called report to Ruthann JERONIMO in ICU. stated they had to call a nurse in. pt's humalog started and is on second L of IV fluid. glucose read >600
[2018-04-27] MEDS: 0.9% Normal Saline 1,000 ML 500 ML IV (12:35)
[2018-04-27 12:51] LABS: Bedside Glucose > 500 mg/dL (70-110)
[2018-04-27 13:46] LABS: Bedside Glucose 453 mg/dL (70-110)
[2018-04-27] MEDS: 0.9% Normal Saline 1,000 ML 250 ML IV (14:35)
--- NOTE | 2018-04-27 14:45 | CASEMGMT ---
RN CM Assessment Presentation: DKA, blood glucose >600, generalized weakness, hx of Type 1 Diabetes. Intro role of CM and purpose of RN CM assessment. Pt states he is compliant with his diabetes, however has been ill past few days. Per pt he has BS monitoring equipment and [employer] provides coverage. Pt is able to f/u with PCP. PCP: Dr. Luke Preferred Pharmacy: [facility] Insurance: [employer] Prescription Benefit: yes LNOK: Ira sanchez, exwife Living Arrangements: Lives independently, states does not need assist at home. Transportation: pt drives DME/HHC: none DC PLAN: anticipate home on dc.
[2018-04-27 14:46] LABS: Bedside Glucose 300 mg/dL (70-110)
[2018-04-27 15:03] LABS: Anion Gap 23 (5-15); BUN 24 mg/dL (7-18); Calcium,Total 8.2 mg/dL (8.5-10.1); Chloride 101 mmol/L (98-107); EST Glomerular Filtration Rate 52 mL/min (>60); Est Glom Filt Rate - Afr Amer 63 mL/min (>60); Estimated Creatinine Clearance 68.63 ml/min; Glucose 341 mg/dL (74-106); Potassium 4.7 mmol/L (3.5-5.1); Sodium Level 135 mmol/L (136-145)
[2018-04-27 15:41] LABS: Bedside Glucose 264 mg/dL (70-110)
[2018-04-27] MEDS: Dext 5%-0.45% NS 1,000 ML 150 ML IV ×2 (16:40→23:03)
[2018-04-27 16:41] LABS: Bedside Glucose 239 mg/dL (70-110)
[2018-04-27 17:40] LABS: Bedside Glucose 230 mg/dL (70-110)
[2018-04-27 18:41] LABS: Bedside Glucose 207 mg/dL (70-110)
[2018-04-27 19:01] LABS: Anion Gap 15 (5-15); BUN 20 mg/dL (7-18); Calcium,Total 7.8 mg/dL (8.5-10.1); Chloride 105 mmol/L (98-107); Creatinine, Serum 1.43 mg/dL (0.70-1.30); EST Glomerular Filtration Rate 60 mL/min (>60); Est Glom Filt Rate - Afr Amer 72 mL/min (>60); Estimated Creatinine Clearance 76.79 ml/min; Glucose 235 mg/dL (74-106); Potassium 4.5 mmol/L (3.5-5.1); Sodium Level 136 mmol/L (136-145)
[2018-04-27 19:46] LABS: Bedside Glucose 180 mg/dL (70-110)
[2018-04-27 20:40] LABS: Bedside Glucose 178 mg/dL (70-110)
[2018-04-27 21:40] LABS: Bedside Glucose 152 mg/dL (70-110)
[2018-04-27 22:36] LABS: Bedside Glucose 214 mg/dL (70-110)
[2018-04-27 22:49] LABS: Anion Gap 13 (5-15); BUN 18 mg/dL (7-18); BUN/Creat Ratio 13.3 RATIO (10-20); Chloride 106 mmol/L (98-107); Creatinine, Serum 1.35 mg/dL (0.70-1.30); EST Glomerular Filtration Rate 64 mL/min (>60); Est Glom Filt Rate - Afr Amer 77 mL/min (>60); Estimated Creatinine Clearance 81.34 ml/min; Glucose 204 mg/dL (74-106); Potassium 4.2 mmol/L (3.5-5.1); Sodium Level 138 mmol/L (136-145)
[2018-04-27 23:56] LABS: Bedside Glucose 137 mg/dL (70-110)
[2018-04-28] VITALS (17 sets, daily range): BP systolic 113–153; BP diastolic 55–102; PULSE 58–118; RESP 18–27; TEMP 36.4–38.1; O2SAT 95–100
[2018-04-28] MEDS: Benzonatate 100 MG Capsule PO (00:12)
[2018-04-28 00:41] LABS: Bedside Glucose 147 mg/dL (70-110)
[2018-04-28 04:21] LABS: Absolute Lymphocyte Count 1.52 X10^3/ul (0.83-4.51); Basophil# 0.02 X10^3/uL; Basophil% 0.3 % (0-1); Eosinophil# 0.08 X10^3/uL; Eosinophils% 1.3 % (0-5); Hemoglobin 10.7 g/dl (13.0-16.5); Lymphocyte # 1.52 X10^3/ul (4.0); Lymphocyte % 23.9 % (19-41); Mean Corp Hgb Conc 33.4 g/gl (32-36); Mean Corpuscular Hgb 29.7 pg (27.0-32.0); Mean Corpuscular Volume 88.9 fL (80-94); Mean Platelet Vol. 8.5 fl (6.2-12.0); Monocyte# 0.71 X10^3/uL; Monocyte% 11.1 % (0-10); Neutrophil # 4.02 X10^3/uL (2.7-7.7); Neutrophil % 63.1 % (47-70); Platelet Count 290 K/mm3 (150-450); RBC Distribution Width CV 13.4 % (11.6-14.6); RBC Distribution Width SD 42.2 fl (35.1-43.9); White Blood Count 6.4 K/mm3 (4.4-11.0)
[2018-04-28 04:24] LABS: POSITIVE COUNT NO; POSITIVE DIFFERENTIAL NO; POSITIVE MORPHOLOGY NO
[2018-04-28 04:36] LABS: Anion Gap 14 (5-15); BUN 19 mg/dL (7-18); BUN/Creat Ratio 14.6 RATIO (10-20); Calcium,Total 8.1 mg/dL (8.5-10.1); Chloride 105 mmol/L (98-107); EST Glomerular Filtration Rate 67 mL/min (>60); Est Glom Filt Rate - Afr Amer 81 mL/min (>60); Estimated Creatinine Clearance 84.47 ml/min; Glucose 243 mg/dL (74-106); Potassium 4.6 mmol/L (3.5-5.1); Sodium Level 138 mmol/L (136-145)
[2018-04-28 06:31] LABS: Bedside Glucose 274 mg/dL (70-110)
[2018-04-28 07:36] LABS: Bedside Glucose > 500 mg/dL (70-110)
[2018-04-28 07:36] LABS: Bedside Glucose > 500 mg/dL (70-110)
[2018-04-28 08:35] LABS: Bedside Glucose 308 mg/dL (70-110)
[2018-04-28] MEDS: Insulin Lispro 100 UNIT/ML INSULN.PEN SC ×5 (08:35→21:30)
[2018-04-28] MEDS: Gabapentin 400 MG Capsule 800 MG PO (09:06)
--- NOTE | 2018-04-28 10:50 | PN_ITS ---
Subjective: Started with Flu sx last Fri. C/O cough productive of yellow sputum and sore throat. Coughs when he takes a deep breath. Tells me that his HGBA1C is usually in the 9's. Has not seen a concrete block mason to help with diet for at least 5 years. Does not count carbs.....he guesses at how much insulin he needs. He is not meal planning. Used to see CHIKIS Darden. Diabetic since the age of 18. Denies any hx of CAD, chest pain(except with cough), numbness in his feet, chronic N/V. Muscle aches and pains are getting better. Objective: PHYSICAL EXAM: GENERAL: alert, oriented X 3, Cooperative, NAD, looks fatigued and pale ORAL: dry mucosa, no mucosal lesions NECK: No JVD, supple, trachea midline LUNGS: CTA after a few deep breaths, initially had coarse crackles in both bases, symmetric chest expansion, no wheezes, no rhonchi, no conversational dyspnea, dry cough when he takes deep breaths HEART: RRR, Normal S1 and S2, no rub, no gallop, no gallop ABDOMEN: soft, NT, ND, BS present, no guarding with palpation EXTREMITIES: no edema, no cyanosis, no calf tenderness SKIN: No rashes, no breakdown NEUROLOGIC: no focal neurologic deficits PSYCH: appropriate, normal affect, pleasant - Physical Exam Vital Signs Temp Pulse Resp BP Pulse Ox 97.6 F L 90 23 H 118/69 99 04/28/18 08:31 04/28/18 10:00 04/28/18 10:00 04/28/18 10:00 04/28/18 10:00 Oxygen Delivery Method Room Air Weight: 202 lb 6.15 oz Body Mass Index (BMI) 28.0 Finger Stick Blood Glucose 147 Intake and Output for Last 24 Hours 04/26/18 04/27/18 04/28/18 23:59 23:59 23:59 Intake Total 1800 / 1800 3318.7 / 3318.7 Output Total 1100 / 1100 975 / 975 Balance 700 / 700 2343.7 / 2343.7 Microbiology Past 72 Hours 04/27/18 13:05 Respiratory Panel (PCR) - Final Mucosa - Nasopharyngeal Influenza A (Subtype H1) 04/27/18 09:50 Influenza Types A,B Direct FA (JAG) - Final Mucosa - Nasopharyngeal Laboratory Tests Past 24 Hrs 04/27/18 04/27/18 04/27/18 10:05 10:05 14:35 WBC RBC Hgb Hct MCV MCH MCHC RDW RDW Differential Plt Count MPV Immature Gran % (Auto) Neut % (Auto) Lymph % (Auto) [place] % (Auto) Eos % (Auto) Baso % (Auto) Absolute Neuts (auto) Absolute Lymphs (auto) Total Counted Sodium 129 L 135 L Potassium 5.1 4.7 Chloride 89 L 101 Carbon Dioxide 12.0 L 11.0 L Anion Gap 28 H 23 H BUN 23 H 24 H Creatinine 1.54 H 1.60 H Estim Creat Clear Calc 71.31 68.63 Est GFR (MDRD) Af Amer 66 63 Est GFR (MDRD) Non-Af 55 L 52 L BUN/Creatinine Ratio 14.9 15.0 Glucose 670 H* 341 H Hemoglobin A1c Lactic Acid 1.7 Calcium 9.3 8.2 L Magnesium 2.2 Total Bilirubin 0.70 AST 99 H ALT 101 H Alkaline Phosphatase 167 H Total Protein 7.9 Albumin 3.3 Globulin 4.6 H Albumin/Globulin Ratio 0.7 L 04/27/18 04/27/18 04/28/18 18:38 22:20 04:10 WBC 6.4 RBC 3.60 L Hgb 10.7 L Hct 32.0 L MCV 88.9 MCH 29.7 MCHC 33.4 RDW 13.4 RDW Differential 42.2 Plt Count 290 MPV 8.5 Immature Gran % (Auto) 0.300 Neut % (Auto) 63.1 Lymph % (Auto) 23.9 [place] % (Auto) 11.1 H Eos % (Auto) 1.3 Baso % (Auto) 0.3 Absolute Neuts (auto) 4.0 Absolute Lymphs (auto) 1.52 Total Counted Not Reportable Sodium 136 138 Potassium 4.5 4.2 Chloride 105 106 Carbon Dioxide 16.0 L 19.0 L Anion Gap 15 13 BUN 20 H 18 Creatinine 1.43 H 1.35 H Estim Creat Clear Calc 76.79 81.34 Est GFR (MDRD) Af Amer 72 77 Est GFR (MDRD) Non-Af 60 64 BUN/Creatinine Ratio 14.0 13.3 Glucose 235 H 204 H Hemoglobin A1c Lactic Acid Calcium 7.8 L 8.0 L Magnesium Total Bilirubin AST ALT Alkaline Phosphatase Total Protein Albumin Globulin Albumin/Globulin Ratio 04/28/18 04/28/18 04:10 04:10 WBC RBC Hgb Hct MCV MCH MCHC RDW RDW Differential Plt Count MPV Immature Gran % (Auto) Neut % (Auto) Lymph % (Auto) [place] % (Auto) Eos % (Auto) Baso % (Auto) Absolute Neuts (auto) Absolute Lymphs (auto) Total Counted Sodium 138 Potassium 4.6 Chloride 105 Carbon Dioxide 19.0 L Anion Gap 14 BUN 19 H Creatinine 1.30 Estim Creat Clear Calc 84.47 Est GFR (MDRD) Af Amer 81 Est GFR (MDRD) Non-Af 67 BUN/Creatinine Ratio 14.6 Glucose 243 H Hemoglobin A1c Pending Lactic Acid Calcium 8.1 L Magnesium Total Bilirubin AST ALT Alkaline Phosphatase Total Protein Albumin Globulin Albumin/Globulin Ratio POC Glucose 04/28/18 04/28/18 04/28/18 08:29 06:24 00:34 POC Glucose 308 H 274 H 147 H 04/27/18 04/27/18 04/27/18 23:52 22:26 21:36 POC Glucose 137 H 214 H 152 H 04/27/18 04/27/18 04/27/18 20:37 19:39 18:35 POC Glucose 178 H 180 H 207 H 04/27/18 04/27/18 04/27/18 17:34 16:31 15:36 POC Glucose 230 H 239 H 264 H 04/27/18 04/27/18 04/27/18 14:26 13:38 12:35 POC Glucose 300 H 453 H* > 500 H* 04/27/18 04/27/18 04/27/18 11:41 09:44 09:43 POC Glucose > 500 H* > 500 H* > 500 H* Medical Necessity - Tobacco Use Smoking Status: Never smoker Tobacco Use: Non-smoker Assessment/Plan All Active Problems DKA (diabetic ketoacidoses) (Acute) Headache and neck pain (Acute) Hypoglycemia (Acute) Impressions 1. DKA - resolved 2. Influenza A 3. poorly controlled DM I - non-compliance with diet and not counting carbs. Eats fast foods for lunch and never packs a healthy lunch. 4. Acute kidney injury secondary to dehydration-resolved 5. Dyslipidemia 6. Hypertension Transfer to [facility] Check a HGBA1C He declined diet instruction with the concrete block mason however, I reinforced the need to get HGBA1C down to less than 7-7.5 to decrease risk for CAD, CRF, diabetic retinopathy etc.......He is considering Incentive spirometer increase activity Change diet to 2000 calorie Low fat Add Humalog 5 units with each meal and continue the sliding scale Check CMP, MAG, lipid panel in the AM
[2018-04-28 11:10] LABS: Hemoglobin A1c 9.9 % (4.2-6.3)
[2018-04-28 13:05] LABS: Bedside Glucose 285 mg/dL (70-110)
[2018-04-28 16:50] LABS: Bedside Glucose 105 mg/dL (70-110)
[2018-04-28] MEDS: BENZOCAINE/MENTHOL 1 LOZENGE MUCOUS MEM ×2 (18:28→22:34)
[2018-04-28 21:35] LABS: Bedside Glucose 183 mg/dL (70-110)
[2018-04-29 02:40] VITALS: BP 112/82; PULSE 105; RESP 18; TEMP 37.6; O2SAT 97
[2018-04-29 07:27] LABS: ALB/GLOB Ratio 0.7 RATIO (0.9-2.4); AST(SGOT) 53 U/L (15-37); Alanine Aminotransfer ALT/SGPT 63 U/L (16-61); Albumin, Serum 2.6 g/dL (3.2-5.0); Alkaline Phosphatase 127 U/L (45-117); Anion Gap 12 (5-15); BUN 13 mg/dL (7-18); BUN/Creat Ratio 13.2 RATIO (10-20); Calcium,Total 8.8 mg/dL (8.5-10.1); Chloride 105 mmol/L (98-107); Cholesterol 217 mg/dL (200); Creatinine, Serum 0.99 mg/dL (0.70-1.30); EST Glomerular Filtration Rate 91 mL/min (>60); Est Glom Filt Rate - Afr Amer 111 mL/min (>60); Estimated Creatinine Clearance 110.92 ml/min; Globulin 3.8 g/dL (2.2-4.2); Glucose 90 mg/dL (74-106); High Density Lipoprotein 46 mg/dL; Magnesium 1.7 mg/dL (1.6-2.6); Potassium 3.5 mmol/L (3.5-5.1); Protein, Total 6.4 g/dL (6.4-8.2); Sodium Level 142 mmol/L (136-145); Triglycerides 348 mg/dL; Very Low Density Lipoprotein 70 mg/dL (5-40)
[2018-04-29] MEDS: Gabapentin 800 MG Tablet PO (08:17)
[2018-04-29] MEDS: Insulin Lispro 100 UNIT/ML INSULN.PEN SC ×2 (08:18→12:36)
[2018-04-29 08:20] VITALS: BP 149/95; PULSE 94; RESP 18; TEMP 37.1; O2SAT 97
[2018-04-29 08:26] LABS: Bedside Glucose 90 mg/dL (70-110)
--- NOTE | 2018-04-29 09:46 | RAD_ITS ---
STUDY: X-RAY CHEST REASON FOR EXAM: Male, 37 years old. Fever. TECHNIQUE: PA and lateral views of the chest. COMPARISON: Comparison is made with prior study dated April 27, 2018. FINDINGS: The lungs are clear and expanded. There is no demonstrated pleural abnormality. Normal size heart. Normal mediastinum and yamini. Normal visualized pulmonary arteries. Normal visualized aortic arch and descending thoracic aorta. Normal visualized thoracic spine. Normal visualized ribs, clavicles, and shoulders. There is no demonstrated abnormality of the visualized soft tissue structures of the upper abdomen. RAD/Chest PA and Lateral IMPRESSION: Normal x-ray examination of the chest. Electronically Signed: Neeraj Brown MD at 11:24 EST , Service support ,
--- NOTE | 2018-04-29 10:52 | DCINST_ITS ---
You will use the following diet at home:: Calorie/Carbohydrate Controlled (specify 1200, 1400, etc) - 2,000 claories, Other - low fat Your food should be the consistency of: Regular Your liquids should be the consistency of: Regular/Thin Discharge Activity: - - Telemetry return to normal activity Return to work on:: 05/04/18 May resume sexual activity in: No Restrictions Call your doctor if you observe: Fever of 101 or Higher, Shortness of breath, Dizziness, Fainting spells, Chest pain Instructions: MyPlate Worksheet: 2,000 Calories, Influenza Additional Instructions: 1. You have the Flu. We did not give you Tamiflu because you had symptoms > 48 hours at the time you presented to the ED. The symptoms of the Flu can last 10 days. Treatment is just symptomatic. I have given you a prescription for a cough suppressant. You can continue Cepachol lozenges for the sore throat. No work until May 4. See Dr. Luke in 5-7 days. 2. Sometimes patients will get a secondary bacterial pneumonia following the Flu so if your fevers go higher, you get short of breath or have chest pain or feel worse see Dr. Luke or return to the ER. 3. I think it would be an excellent idea to follow up with the [facility] as an outpatient to help with meal planning and getting your blood sugars under control. Your HGBA1C si 9.9%. You are a young man and you have had diabetes for 20 years. It is not well controlled and this puts you at great risk for complications due to diabetes. This would include vision loss, numbness and pain in the feet, coronary artery disease, strokes, kidney failure, impotence, vascular disease, diabetic foot ulcers and infections, etc. You should aim for a HGBA1C < 7.5. You will need a referral from Dr. Luke to be seen by the dieticians. 4. The chest XRAY you had prior to discharge did not show pneumonia. Pending Tests on Discharge: none Allergies/Adverse Reactions: Allergies No Known Allergies Allergy (Verified 03/07/18 16:06) Medications to take at Discharge Insulin Aspart [Novolog Flexpen] 0 units SC TIDCM 09/06/15 Ibuprofen 600 mg PO DAILY 11/24/17 Cyclobenzaprine [Flexeril] 10 mg PO TID #10 tablet 02/09/18 Hydrochlorothiazide [Hctz] 12.5 mg PO DAILY #30 tablet 02/09/18 Insulin Glargine,Hum.rec.anlog [Basaglar Kwikpen U-100] 20 unit SQ BID #0 02/09/18 Lisinopril [Zestril] 10 mg PO DAILY #30 tablet 02/09/18 Gabapentin [Neurontin] 800 mg PO DAILY 04/27/18 Hydrocodone Bit/Homatropine [Hycodan Syrup] 5 ml PO Q6H 7 Days #3 oz 04/29/18 The following prescriptions were given: Hydrocodone Bit/Homatropine [Hycodan Syrup] 5 ml PO Q6H 7 Days #3 oz Primary Care Physician: Kristal Luke MD [Primary Care Provider] - Please follow up with your Primary Care Physician in: 5-7 days Test Results: Test results from this visit will be discussed in further detail at your follow- up appointment, if applicable. Proposed Discharge Date: 04/29/18
--- NOTE | 2018-04-29 11:18 | PCM.DC.SUM ---
Discharge Date and Diagnosis Date of Admission: 04/27/18 Date of Discharge: 04/29/18 - Primary Discharge Diagnosis Active and Suspected Problems DKA Dehydration (Acute) Acute kidney injury (Acute) Influenza A (Acute) - Secondary Discharge Diagnosis Chronic Problems Hyperlipidemia (Chronic) History of anxiety (Chronic) DM type 1 (diabetes mellitus, type 1) (Chronic) - not controlled Hospital Course and Treatment Imaging Results: 04/29/18 09:46 Chest PA and Lateral [RAD] Urgent Clinical Impression(s) from Imaging Studies Chest X-Ray 04/27/18 10:20 IMPRESSION: Normal x-ray examination of the chest. Electronically Signed: Julian Benites MD at 10:35 EST Tel , Service support , Laboratory Results - last 24 hr 04/28/18 04/28/18 04/28/18 12:57 16:42 21:28 Sodium Potassium Chloride Carbon Dioxide Anion Gap BUN Creatinine Estim Creat Clear Calc Est GFR (MDRD) Af Amer Est GFR (MDRD) Non-Af BUN/Creatinine Ratio Glucose Calcium Magnesium Total Bilirubin AST ALT Alkaline Phosphatase Total Protein Albumin Globulin Albumin/Globulin Ratio Triglycerides Cholesterol LDL Cholesterol VLDL Cholesterol HDL Cholesterol POC Glucose 285 H 105 183 H 04/29/18 04/29/18 06:42 08:15 Sodium 142 Potassium 3.5 Chloride 105 Carbon Dioxide 25.0 Anion Gap 12 BUN 13 Creatinine 0.99 Estim Creat Clear Calc 110.92 Est GFR (MDRD) Af Amer 111 Est GFR (MDRD) Non-Af 91 BUN/Creatinine Ratio 13.2 Glucose 90 Calcium 8.8 Magnesium 1.7 Total Bilirubin 0.30 AST 53 H ALT 63 H Alkaline Phosphatase 127 H Total Protein 6.4 Albumin 2.6 L Globulin 3.8 Albumin/Globulin Ratio 0.7 L Triglycerides 348 H Cholesterol 217 H LDL Cholesterol 101 VLDL Cholesterol 70 H HDL Cholesterol 46 POC Glucose 90 Microbiology 04/27/18 10:05 Blood Culture (Wb) - Anticubital Left Bacteria Detection (PCR) - Final 04/27/18 10:05 Blood Culture (Wb) - Anticubital Left Blood Culture - Preliminary GM + cocci in clusters - PCR negative for Staphylococcus species, enterococcus species, Streptococcus species, Listeria. Suspected contamination with possible micrococcus 04/27/18 13:05 Mucosa - Nasopharyngeal Respiratory Panel (PCR) - Final Influenza A (Subtype H1) 04/27/18 09:50 Mucosa - Nasopharyngeal Influenza Types A,B Direct FA (JAG) - Final None Operations: None Procedures: None Summary of Care Provided: The patient is a 37-year-old male with a past medical history of type 1 diabetes diagnosed at 18 years of age, hypertension, hyperlipidemia and anxiety who presented to the [facility] emergency room on 04/27/2018 complaining of generalized weakness, nasal congestion, sore throat, N/V, myalgias and cough. Vital signs in the ER were temperature 98.4, heart rate 116, blood pressure 134/89, respiratory rate 16 and he was 97% saturated on room air. White blood cell count was normal at 7.5 with 79% neutrophils. Platelets and hemoglobin were within normal limits. Sodium was low at 129 and the chloride was 89. Serum bicarb was 12 and the anion gap was increased to 28. BUN was 23 with a creatinine of 1.54 and random blood sugar was 670. Lactic acid was 1.7. ALT, AST and alkaline phosphatase were all mildly elevated. Serum acetone was moderate. Chest x-ray showed no infiltrates, pleural effusions or pulmonary vascular congestion. Influenza swab was negative. He was admitted to the intensive care unit with a diagnosis of diabetic ketoacidosis and started on a continuous insulin infusion. A respiratory panel was obtained and was positive for influenza A. Tamiflu was not started because sx had been present for > 72 hours. He had one blood culture done and it was positive for gram-positive cocci but PCR was negative for staph species, enterococcus, Streptococcus species, Listeria. It is likely due to skin contamination. The anion gap was closed on lab obtained the following morning and the patient was placed on a 2000-calorie low-fat diet. On 04/29/2018 he was afebrile with stable vital signs and his heart rate was less than 100. He was 97% saturated on room air with a respiratory rate of 18. Anion gap was 12 and his BUN was 13 with a creatinine of 0.99. LDL was 101 and the HDL was 46. Triglycerides were elevated at 348, likely secondary to uncontrolled diabetes mellitus. Hemoglobin A1c was 9.9%. Blood sugars were well controlled. Diet and lifestyle changes were discussed. He was advised to start an exercise program and to strictly adhere to a carb controlled diet to get the HGBA1C less than 7.0. He was advised to follow up with Dr. Luke in the office in 5-7 days and I recommended he ask Dr. Luke for a referral to the dietitians outpatient education program for blood sugar control. GENERAL: alert, oriented X 3, Cooperative, NAD ORAL: moist mucosa, no mucosal lesions NECK: No JVD, supple, trachea midline LUNGS: CTA after a few deep breaths, initially had coarse crackles in both bases, symmetric chest expansion, no wheezes, no rhonchi, no conversational dyspnea, dry cough when he takes deep breaths HEART: RRR, Normal S1 and S2, no rub, no gallop, no gallop ABDOMEN: soft, NT, ND, BS present, no guarding with palpation EXTREMITIES: no edema, no cyanosis, no calf tenderness SKIN: No rashes, no breakdown NEUROLOGIC: no focal neurologic deficits PSYCH: appropriate, normal affect, pleasant This note was generated with [employer] dictation software. It may contain incorrect words, spelling, and punctuation that were not noted in checking the note before signing. - Physical Exam Vital Signs Temp Pulse Resp BP Pulse Ox 98.8 F 94 18 149/95 H 97 04/29/18 08:20 04/29/18 08:20 04/29/18 08:20 04/29/18 08:20 04/29/18 08:20 Oxygen Delivery Method Room Air Weight: 202 lb 2.622 oz Body Mass Index (BMI) 28.0 Finger Stick Blood Glucose 147 Intake and Output for Last 24 Hours 04/27/18 04/28/18 04/29/18 23:59 23:59 23:59 Intake Total 1800 / 1800 4298.7 / 4298.7 750 / 750 Output Total 1100 / 1100 1974 / 1974 Balance 700 / 700 2323.7 / 2323.7 750 / 750 Microbiology Past 72 Hours 04/27/18 10:05 Bacteria Detection (PCR) - Final Blood Culture (Wb) - Anticubital Left Blood Culture - Preliminary 04/27/18 13:05 Respiratory Panel (PCR) - Final Mucosa - Nasopharyngeal Influenza A (Subtype H1) 04/27/18 09:50 Influenza Types A,B Direct FA (JAG) - Final Mucosa - Nasopharyngeal Laboratory Tests Past 24 Hrs 04/29/18 06:42 Sodium 142 Potassium 3.5 Chloride 105 Carbon Dioxide 25.0 Anion Gap 12 BUN 13 Creatinine 0.99 Estim Creat Clear Calc 110.92 Est GFR (MDRD) Af Amer 111 Est GFR (MDRD) Non-Af 91 BUN/Creatinine Ratio 13.2 Glucose 90 Calcium 8.8 Magnesium 1.7 Total Bilirubin 0.30 AST 53 H ALT 63 H Alkaline Phosphatase 127 H Total Protein 6.4 Albumin 2.6 L Globulin 3.8 Albumin/Globulin Ratio 0.7 L Triglycerides 348 H Cholesterol 217 H LDL Cholesterol 101 VLDL Cholesterol 70 H HDL Cholesterol 46 POC Glucose 04/29/18 04/28/18 04/28/18 08:15 21:28 16:42 POC Glucose 90 183 H 105 04/28/18 12:57 POC Glucose 285 H Discharge Activity: - - Telemetry return to normal activity Return to work on:: 05/04/18 May resume sexual activity in: No Restrictions Call your doctor if you observe: Fever of 101 or Higher, Shortness of breath, Dizziness, Fainting spells, Chest pain Home Medications: Medications to take at Discharge Insulin Aspart [Novolog Flexpen] 0 units SC TIDCM 09/06/15 Ibuprofen 600 mg PO DAILY 11/24/17 Cyclobenzaprine [Flexeril] 10 mg PO TID #10 tablet 02/09/18 Hydrochlorothiazide [Hctz] 12.5 mg PO DAILY #30 tablet 02/09/18 Insulin Glargine,Hum.rec.anlog [Basaglar Kwikpen U-100] 20 unit SQ BID #0 02/09/18 Lisinopril [Zestril] 10 mg PO DAILY #30 tablet 02/09/18 Gabapentin [Neurontin] 800 mg PO DAILY 04/27/18 Hydrocodone Bit/Homatropine [Hycodan Syrup] 5 ml PO Q6H 7 Days #3 oz 04/29/18 Following Prescrptions Were Given to Patient: Hydrocodone Bit/Homatropine [Hycodan Syrup] 5 ml PO Q6H 7 Days #3 oz Primary Care Physician: Kristal Luke MD [Primary Care Provider] - Please follow up with your Primary Care Physician in: 5-7 days Patient Instructions: MyPlate Worksheet: 2,000 Calories, Influenza Disposition: Home Minutes spent on discharge:: 35 Patient Condition:: Good Medical Necessity - Tobacco Use Smoking Status: Never smoker Tobacco Use: Non-smoker Meaningful Use Info Meaningful Use Diagnoses (Choose all that apply): None applicable Code Visit Inpatient E&M: 97383 Disch Hosp
--- NOTE | 2018-04-29 11:27 | PCM.WORK.EX ---
Work/School Excuse Please excuse this person from:: Work From: 04/27/18 - Influenza A through: 05/03/18
[2018-04-29 12:05] LABS: Bedside Glucose 78 mg/dL (70-110)
--- NOTE | 2018-04-30 14:19 | CASEMGMT ---
RN CM DC Phone Call DC DATE: 04/29/18 DC Disposition: Home LACE/STRATA: 03/03 Intro role of CM to patient via home phone. Pt states he is feeling well and does not have questions regarding prescriptions, follow up or dc instructions. No further questions. Erik GALINDON RN ACM
== END 2018-04-29 13:35 | disposition home or self-care (01) | DRG 420 ==
LOC: ED 09:50 → ICU 11:41 → MS2 04-29 08:17
PROVIDERS: Family Medicine; Admitting Provider Internal Medicine; Emergency Provider Emergency Medicine; Family Provider Internal Medicine; PCP Internal Medicine; Visit Provider Internal Medicine
DX: E10.10 Type 1 diabetes mellitus with ketoacidosis without coma (principal); J10.1 Influenza due to other identified influenza virus with other respiratory manifestations; I10 Essential (primary) hypertension; E86.0 Dehydration; Z79.4 Long term (current) use of insulin; N17.9 Acute kidney failure, unspecified; E78.5 Hyperlipidemia, unspecified
CPT/HCPCS: 36415; 71046; 80048; 80053; 80061; 82009; 82962; 83036; 83605; 83735; 84100; 85025; 87040; 87149; 87633; 87804; 93005; 94762; 97802; 99285; J7030; J2405; J7799

== ENCOUNTER 2018-09-05 10:31 | Emergency (ER) | payer MEDICAID, SELFPAY ==
[2018-04-27 12:38] VITALS: BMI 28.0
[2018-09-05 10:32] VITALS: BP 164/102; PULSE 95; RESP 18; TEMP 36.4; O2SAT 99; BMI 30.7
[2018-09-05 10:50] LABS: Bedside Glucose 186 mg/dL (70-110)
[2018-09-05 11:23] LABS: Absolute Lymphocyte Count 1.39 X10^3/ul (0.83-4.51); Absolute Neutrophil Count 5.5 X10^3/uL (2.0-7.7); Basophil# 0.04 X10^3/uL; Basophil% 0.5 % (0-1); Eosinophil# 0.12 X10^3/uL; Eosinophils% 1.6 % (0-5); Hematocrit 38.7 % (40-54); Lymphocyte # 1.39 X10^3/ul (4.0); Lymphocyte % 18.1 % (19-41); Mean Corp Hgb Conc 33.6 g/gl (32-36); Mean Corpuscular Hgb 28.5 pg (27.0-32.0); Mean Corpuscular Volume 84.9 fL (80-94); Mean Platelet Vol. 9.3 fl (6.2-12.0); Monocyte% 7.8 % (0-10); Neutrophil # 5.52 X10^3/uL (2.7-7.7); Neutrophil % 71.7 % (47-70); Platelet Count 299 K/mm3 (150-450); RBC Distribution Width CV 13.3 % (11.6-14.6); RBC Distribution Width SD 40.9 fl (35.1-43.9); Red Blood Count 4.56 M/mm3 (4.6-6.2); White Blood Count 7.7 K/mm3 (4.4-11.0)
[2018-09-05 11:24] LABS: POSITIVE COUNT NO; POSITIVE DIFFERENTIAL NO; POSITIVE MORPHOLOGY NO
[2018-09-05 11:41] LABS: ALB/GLOB Ratio 0.8 RATIO (0.9-2.4); AST(SGOT) 42 U/L (15-37); Alanine Aminotransfer ALT/SGPT 48 U/L (16-61); Albumin, Serum 3.1 g/dL (3.2-5.0); Alkaline Phosphatase 102 U/L (45-117); Anion Gap 7 (5-15); BUN 22 mg/dL (7-18); BUN/Creat Ratio 16.9 RATIO (10-20); Calcium,Total 8.9 mg/dL (8.5-10.1); Chloride 106 mmol/L (98-107); EST Glomerular Filtration Rate 66 mL/min (>60); Est Glom Filt Rate - Afr Amer 80 mL/min (>60); Estimated Creatinine Clearance 83.67 ml/min; Glucose 184 mg/dL (74-106); Potassium 3.9 mmol/L (3.5-5.1); Protein, Total 7.1 g/dL (6.4-8.2); Sodium Level 137 mmol/L (136-145)
--- NOTE | 2018-09-05 12:17 | ED.VISSUMM ---
- ER Visit Summary Date of Service: 09/05/18 Chief Complaint: Hypoglycemia History of Present Illness: The patient is a 38 M who awoke today around 7. He ate and took his insulin. He does not check his blood sugar regularly. He is on a sliding scale and states he takes however much he thinks he needs. He was at work in a meeting and apparently collapsed. Initial blood sugar was 28 for EMS. They gave glucagon and D50. Patient slowly return to his baseline. He is currently resting comfortably with his family. Physical Examination: Afebrile vital signs are stable Gen: Well-nourished well-developed Head: Normocephalic atraumatic Eyes: Perrl EOMI ENT: TMs clear no rhinorrhea moist mucous membranes Neck: Supple no lymphadenopathy no JVD nontender CVS: Regular rate rhythm no murmurs normal S1-S2 Respiratory: No distress clear to auscultation bilaterally chest nontender Abdomen: Soft nontender nondistended normal bowel sounds no masses Back: Nontender Extremity: There is a superficial hematoma to the volar aspect of the left wrist. There is a small puncture wound. He had a Band-Aid on it but the patient is unsure where this came from. Skin: Normal color no rash Neuro: alert orientated ?3 CN II-XII intact normal strength sensation reflexes gait cerebellar Psych: Normal affect normal mood Emergency Department Course and Treatment: Patient had every hour blood sugar checks on the department. He was given a meal tray. He will be observed. Patient was encouraged to check his blood sugar regularly. Impression: 1. Diabetic hypoglycemia. This note was generated with [employer] dictation software. It may contain incorrect words, spelling, and punctuation that were not noted in review of the chart prior to signing ED Disposition - Plan for ED Patient: Disposition: Home or Assisted Living Instructions: ED Diabetes Hypoglycemia Insulin React Referrals: Kristal Luke MD [Primary Care Provider] - Keep Domingo appointment
[2018-09-05 12:31] LABS: Bedside Glucose 255 mg/dL (70-110)
[2018-09-05 13:06] VITALS: BP 139/84; PULSE 71; RESP 16; O2SAT 98
== END 2018-09-05 13:07 | disposition home or self-care (01) ==
PROVIDERS: Emergency Provider Emergency Medicine; Family Provider Internal Medicine; PCP Internal Medicine
DX: E11.649 Type 2 diabetes mellitus with hypoglycemia without coma (principal); S60.212A Contusion of left wrist, initial encounter; S61.532A Puncture wound without foreign body of left wrist, initial encounter; X58.XXXA Exposure to other specified factors, initial encounter; Y93.9 Activity, unspecified; Y92.9 Unspecified place or not applicable; I10 Essential (primary) hypertension; Z79.4 Long term (current) use of insulin; Z79.899 Other long term (current) drug therapy
CPT/HCPCS: 80053; 82962; 85025; 99285; J7030; A4216; J1610

== ENCOUNTER 2019-11-13 14:23 | Emergency (ER) | payer MEDICAID, SELFPAY ==
[2019-11-05 14:09] VITALS: BMI 28.7
[2019-11-13 14:24] VITALS: BP 176/107; PULSE 15; RESP 103; TEMP 36.4; O2SAT 100; BMI 30.1
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
[2019-11-13 14:36] LABS: Bedside Glucose 111 mg/dL (70-110)
== END 2019-11-13 15:20 | disposition home or self-care (01) ==
PROVIDERS: Emergency Provider Emergency Medicine; PCP Internal Medicine
DX: E10.649 Type 1 diabetes mellitus with hypoglycemia without coma (principal); Z79.4 Long term (current) use of insulin
CPT/HCPCS: 82962; 99284

== ENCOUNTER 2019-12-04 17:36 | Emergency (ER) | payer MEDICAID, SELFPAY ==
[2019-12-04] VITALS (7 sets, daily range): BP systolic 159–200; BP diastolic 97–118; PULSE 81–107; RESP 14–20; TEMP 36.1; O2SAT 97–100; BMI 33.4
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
[2019-12-04 18:00] LABS: Bedside Glucose 129 mg/dL (70-110)
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
[2019-12-04] MEDS: Dextrose 5%/0.9% NaCl 1,000 ML 125 ML IV (18:10)
[2019-12-04 18:21] LABS: Absolute Lymphocyte Count 1.12 X10^3/uL (0.83-4.51); Absolute Neutrophil Count 9.9 X10^3/uL (2.0-7.7); Basophil# 0.04 X10^3/uL; Basophil% 0.3 % (0-1); Eosinophil# 0.09 X10^3/uL; Eosinophils% 0.8 % (0-5); Hematocrit 37.3 % (40-54); Hemoglobin 12.2 g/dL (13.0-16.5); Lymphocyte # 1.12 X10^3/ul (4.0); Lymphocyte % 9.3 % (19-41); Mean Corp Hgb Conc 32.7 g/dL (32-36); Mean Corpuscular Hgb 28.9 pg (27.0-32.0); Mean Corpuscular Volume 88.4 fL (80-94); Mean Platelet Vol. 8.8 fl (6.2-12.0); Monocyte# 0.82 X10^3/uL; Monocyte% 6.8 % (0-10); NRBC Flagged by Analyzer 0 % (0-5); Neutrophil # 9.86 X10^3/uL (2.7-7.7); Neutrophil % 82.2 % (47-70); Platelet Count 307 K/mm3 (150-450); RBC Distribution Width SD 41.7 fl (35.1-43.9); Red Blood Count 4.22 M/mm3 (4.6-6.2)
[2019-12-04 18:35] LABS: Anion Gap 8 (5-15); BUN 25 mg/dL (7-18); BUN/Creat Ratio 18.5 RATIO (10-20); Calcium,Total 9.2 mg/dL (8.5-10.1); Chloride 106 mmol/L (98-107); Creatinine, Serum 1.35 mg/dL (0.70-1.30); EST Glomerular Filtration Rate 63 mL/min (>60); Est Glom Filt Rate - Afr Amer 76 mL/min (>60); Estimated Creatinine Clearance 79.79 ml/min; Glucose 113 mg/dL (74-106); Sodium Level 140 mmol/L (136-145)
[2019-12-04 18:46] LABS: Bedside Glucose 110 mg/dL (70-110)
--- NOTE | 2019-12-04 19:14 | CM.ED ---
Social Work Responding to stroke alert. Patient girlfriend, Arabella Rizzo present. Arabella states to have brought patient to the ER today. Support provided. Will continue to follow as needed. Kim MONZON, JUSTIN
[2019-12-04 19:15] LABS: Bedside Glucose 123 mg/dL (70-110)
[2019-12-04] MEDS: HYDROmorphone 0.5 MG/0.5 ML SYRINGE IV (19:26)
[2019-12-04] MEDS: Ondansetron 4 MG/2 ML Vial IV (19:26)
[2019-12-04] MEDS: DiphenhydrAMINE 50 MG/ML Syringe 12.5 MG IV (19:26)
[2019-12-04 20:46] LABS: Bedside Glucose 128 mg/dL (70-110)
== END 2019-12-04 20:46 | disposition left against medical advice (07) ==
PROVIDERS: Emergency Provider Emergency Medicine; PCP Internal Medicine
DX: S42.141A Displaced fracture of glenoid cavity of scapula, right shoulder, initial encounter for closed fracture (principal); E10.649 Type 1 diabetes mellitus with hypoglycemia without coma; S50.812A Abrasion of left forearm, initial encounter; V89.2XXA Person injured in unspecified motor-vehicle accident, traffic, initial encounter; Y93.9 Activity, unspecified; Y92.9 Unspecified place or not applicable; Z53.21 Procedure and treatment not carried out due to patient leaving prior to being seen by health care provider; I49.3 Ventricular premature depolarization; Z79.4 Long term (current) use of insulin
CPT/HCPCS: 70450; 71260; 72125; 74177; 80048; 82962; 85025; 93005; 96361; 96365; 96366; 96374; 96375; 99285; Q9967; A4216; J2405

== ENCOUNTER → 2019-12-08 15:41 | Outpatient (CLI) | payer MEDICAID, SELFPAY ==
[2019-12-08 13:03] VITALS: BMI 33.4
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
== END ==
PROVIDERS: PCP Internal Medicine; Referring Provider Orthopaedic Surgery; Visit Provider Orthopaedic Surgery
DX: S42.101A Fracture of unspecified part of scapula, right shoulder, initial encounter for closed fracture (principal)
CPT/HCPCS: 73200; 76377

== ENCOUNTER 2020-01-15 23:58 | Emergency (ER) | payer MEDICAID, SELFPAY ==
[2019-12-24 13:16] VITALS: BMI 33.4
[2020-01-15 23:59] VITALS: BP 189/112; PULSE 110; RESP 16; TEMP 36.4; O2SAT 98; BMI 30.9
--- NOTE | 2020-01-16 00:14 | ED.VIS.LOWEX ---
History of Present Illness Chief Complaint: Cellulitis Informant: Patient Onset: Today Context: Gradual Onset Timing: Continuous Quality of Pain: - - sore Location: Right foot, started at small toe Current Severity: Moderate Maximum Severity: Moderate Worsened by: Walking, palpation of affected area Relieved by: Rest and leaving it alone Associated Symptoms: Negative for: Parasthesia, Weakness, Loss of Funtion Narrative: Patient states earlier today he noticed what looked like a small bruise or area of rubbing on the inside of his right little toe, just distal to the webspace and not including it. It was a little sore but nothing major. He noticed it became a little red and swollen just proximal to that, he watched a movie tonight and after the movie was over he noticed that the redness was spread proximally into his forefoot, and with the speed of spread he became concerned. He denotes no systemic symptoms. He has had no fevers or chills or other recent illness. He denies any injury to the foot, he denies any obvious reason that he could have a wound or any friction/rubbing there. He denies a history of peripheral neuropathy or any pre-existing or new paresthesias/numbness in his toes bilaterally. There has been no drainage from any of the wound area. - Past Medical History (1) DM type 1 (diabetes mellitus, type 1) Status: Chronic (2) History of anxiety Status: Chronic (3) Hyperlipidemia Status: Chronic Past Medical History - Allergies and Home Meds Allergies/Adverse Reactions: Allergies No Known Allergies Allergy (Verified 01/15/20 23:59) Primary Care Physician: Kristal Luke MD [Primary Care Provider] - Surgical History: - - RLE I+D secondary to abscess, noted was staph. Lives: With Family Smoking Status: Never smoker - Family History Sibling Family History: Family History (Last Reviewed 12/24/19 @ 13:15 by Raeann Zapata) Other Diabetes Family History: Reports: No pertinent history Maternal Family History: Family History (Last Reviewed 12/24/19 @ 13:15 by Raeann Zapata) Other Diabetes Family History: Reports: Diabetes Paternal Family History: Family History (Last Reviewed 12/24/19 @ 13:15 by Raeann Zapata) Other Diabetes Family History: Reports: Diabetes, Heart Disease Review of Systems General: Denies: Chills, Fever, Sweats Eyes: Denies: Visual changes - bilaterally, Diplopia ENT: Denies: Rhinorrhea, Sore throat Cardiovascular: Denies: Chest pain, Palpitations Respiratory: Denies: Dyspnea, Cough, Dyspnea on exertion Gastrointestinal: Denies: Abdominal pain, Nausea, Vomiting, Diarrhea, Melena, Hematochezia Genitourinary: Denies: Dysuria, Hematuria, Frequency Musculoskeletal: Reports: Extremity Pain. Denies: Myalgias, Back pain Skin: Reports: Rash. Denies: Abscess, Wounds Neurological: Denies: Headache, Weakness, Numbness Physical Exam Vital Signs/Narrative: Vital Signs Temp Pulse Resp BP Pulse Ox 01/15/20 23:59 97.6 F L 110 H 16 189/112 H 98 Inital Vital Signs reviewed: Yes - Extremity Exam Right Foot: - - Proximal to the small toe, with an arc-shaped border proximally in the forefoot, there is a mildly tender blanching erythematous wedge-shaped area consistent with cellulitis. It is limited to the forefoot. There is mild swelling but no fluctuance or pointing, it is inconsistent with an abscess.. Negative for: Limited ROM - There is an erythematous focal area on the inside of the right proximal little toe that almost looks like a friction wound but there is no blister/bulla, and it is not an abscess. It is dark red but not purpuric. No petechia. Right Toe: - - Continued from above-it progresses to the lateral aspect of the forefoot, but not the plantar aspect, which is normal-appearing with a noninfected, nontender chronic-appearing callus. General: Well nourished, Well developed, - - NAD, well-appearing Head: Normocephalic, Atraumatic Skin: Rash - Cellulitis right forefoot. See above. No lymphangitic streaking. Otherwise right lower extremity is normal-appearing, no other toes are affected. Neurological: Alert, Oriented x3, Cranial nerves II-XII grossly intact, Normal Strength, Normal Sensation, Normal Gait Psychological: Normal affect, Normal Mood Diagnostic/Tx/Re-eval - Medical Decision Making Patient checked his blood sugar with his automatic meter that he has, he states it was 140 earlier, but he ate after that and now it is 230. He states he is asymptomatic from that. He is comfortable treating that with his insulin. I do not think he needs labs right now, this clearly appears to be an early cellulitis that emanated from the toe wound. He states it was normal looking last night because he looked at it. Therefore I do not think he needs further work-up to look for osteo-, abscess. He is given parenteral antibiotics in the form of IM Ancef 1 g, and placed on Augmentin. We pamela a line around the proximal aspect of the area for him to follow it, and we discussed reasons to return and/or follow-up. He is comfortable with that plan. ED Disposition - Plan for ED Patient: Disposition: Home or Assisted Living Diagnosis: Cellulitis of right foot Instructions: ED Cellulitis Prescriptions: Amox/Clavulanate Tablet [Augmentin Tablet] 875 mg PO Q12H #20 tab Prescription Printed Referrals: Kristal Luke MD [Primary Care Provider] - 3-5 Days if not improving (or may return to ER) Additional Instructions: If tomorrow redness is extended a little past the line, continue to watch for another day as long as you are feeling well otherwise. If continuing to spread further and further up your foot/leg after 2-3 days, either follow-up with your doctor or return to the ER for reevaluation. If at any point the redness spreads far up your leg and/or you come down with a fever, return to the ER for reevaluation, and/or also for other acute concerns.
[2020-01-16] MEDS: Amox/Clavulanate 875 MG Tablet PO (00:47)
[2020-01-16] MEDS: Cefazolin 1 GM/5 ML Vial IM (00:47)
== END 2020-01-16 01:08 | disposition home or self-care (01) ==
PROVIDERS: Emergency Provider Emergency Medicine; PCP Internal Medicine
DX: L03.115 Cellulitis of right lower limb (principal); E10.9 Type 1 diabetes mellitus without complications; Z79.4 Long term (current) use of insulin
CPT/HCPCS: 96372; 99283

== ENCOUNTER 2020-03-28 09:19 | Emergency (ER) | payer MEDICAID, SELFPAY ==
[2020-03-28 09:20] VITALS: BP 160/99; PULSE 108; RESP 16; TEMP 36.8; O2SAT 98; BMI 28.7
--- NOTE | 2020-03-28 09:42 | ED.VIS.GEN ---
History of Present Illness Chief Complaint: Lower Extremity Injury Informant: Patient Narrative: Patient is a 39-year-old male with a past medical history of insulin-dependent diabetes who presents to the ED for nausea and vomiting. He states that he has been having uncontrolled blood sugars go up and down. He is also complaining of right leg pain. Starts in the right buttock region does go all the way down to his foot. Denies ever having this happen before. Denies any falls or injury to the area. He did take an ibuprofen 800 this morning which did provide some relief. He denies any saddle anesthesia. No urinary retention. He was concerned that he was in DKA the past 2 days but his blood sugars have normalized. He states every time he tried to drink any water he would throw back up but has not vomited over the past 10 hours. He has had a few episodes of diarrhea. Denies any cough. No known sick contacts. Past Medical History - Allergies and Home Meds Allergies/Adverse Reactions: Allergies No Known Allergies Allergy (Verified 03/28/20 09:23) Primary Care Physician: Kristal Luke MD [Primary Care Provider] - 2 Days Prior records reviewed: Yes Surgical History: - - RLE I+D secondary to abscess, noted was staph. Smoking Status: Never smoker - Family History Sibling Family History: Family History (Last Reviewed 12/24/19 @ 13:15 by Raeann Zapata) Other Diabetes Family History: Reports: No pertinent history Maternal Family History: Family History (Last Reviewed 12/24/19 @ 13:15 by Raeann Zapata) Other Diabetes Family History: Reports: Diabetes Paternal Family History: Family History (Last Reviewed 12/24/19 @ 13:15 by Raeann Zapata) Other Diabetes Family History: Reports: Diabetes, Heart Disease Review of Systems All systems negative except as indicated General: Reports: Chills. Denies: Fever Eyes: Denies: Visual changes - bilaterally, Diplopia ENT: Denies: Rhinorrhea, Sore throat Cardiovascular: Denies: Chest pain, Palpitations Respiratory: Denies: Dyspnea, Cough, Dyspnea on exertion Gastrointestinal: Reports: Nausea, Vomiting, Diarrhea. Denies: Abdominal pain, Melena, Hematochezia Genitourinary: Denies: Dysuria, Hematuria, Frequency Musculoskeletal: Reports: Extremity Pain. Denies: Back pain, Swelling Skin: Denies: Rash, Wounds Neurological: Denies: Headache, Weakness, Numbness Physical Exam Vital Signs/Narrative: Vital Signs Temp Pulse Resp BP Pulse Ox 03/28/20 09:20 98.3 F 108 H 16 160/99 H 98 Inital Vital Signs reviewed: Yes General: Well nourished, Well developed, No Acute Distress Head: Normocephalic, Atraumatic Eyes: Perrl, EOMI ENT: Moist mucous membranes, No rhinorrhea Neck: Supple, Nontender Cardiovascular: Regular rhythm, No murmurs, Tachycardia Respiratory: No distress, CTA bilaterally, Chest nontender Abdomen: Soft, Nontender, Nondistended, Normal bowel sounds Back: Nontender, Normal Inspection. Negative for: CVA tenderness, Spinal tenderness Extremities: No edema, Tenderness - Over the right buttock near the piriformis., - - Positive straight leg test on the right. Skin: Normal color, No rash Neurological: Alert, Oriented x3, Cranial nerves II-XII grossly intact, Normal Strength, Normal Sensation Psychological: Normal affect, Normal Mood Diagnostic/Tx/Re-eval - Medical Decision Making Patient presents to the ED for difficulty controlling his blood sugars. States that he did drop low after he drank a sip of chocolate milk his alarm read high. That has normalized. He has not vomited over the past 10 hours. He feels like is starting to get better from that aspect. He is complaining of right leg pain. Physical exam is benign without any acute surgical red flag signs or symptoms. He is neurovascularly intact. No imaging indicated at this time as he did not have any trauma. Will treat symptomatically with [place]. He is tachycardic upon arrival so we will start IV fluids and check basic lab work. Patient does have some signs of dehydration with the ketones. He does not have an elevated anion gap and CO2 within normal limits. He is requesting a coronavirus test and will obtain this. He is to isolate till this results. His blood sugar has been trending down with IV fluids and we did give him a 5 units subcu dose of insulin. At this time he does feel comfortable being discharged home and is feeling better. Recommend [id number] medications for his lower leg pain. Denies any concern for DVT given the fact it is rating down his leg starting in his buttocks with no edema. Neurovascular tact otherwise. He is discharged home in stable condition. He is to follow-up with his PCP. Warning signs and symptoms which to return to the ED are reviewed. He understands and is agreeable this plan. All questions answered. ED Disposition - Plan for ED Patient: Disposition: Home or Assisted Living Diagnosis: Sciatica, Nausea and vomiting, Hyperglycemia, Dehydration Instructions: ED Diabetic Hyperglycemia, ED Diet for Vomiting or Diarrhea Adult, ED Sciatica Referrals: Kristal Luke MD [Primary Care Provider] - 2 Days
[2020-03-28 10:03] LABS: Bacteria 0 SEEN /hpf (None Seen); Mucous, Urine 0 SEEN /hpf (<or=2+); White Blood Cells 0 SEEN /hpf (0-5)
[2020-03-28] MEDS: HYDROcodone Bitartrate/Apap 5/325 Tablet PO (10:06)
[2020-03-28] MEDS: 0.9% Normal Saline 1,000 ML 999 ML IV (10:07)
[2020-03-28 10:11] LABS: Color, Urine Yellow (Yellow); Glucose, Dipstick 250 mg/dl (Normal); Ketone-Dipstick 50 mg/dl (Negative); Leukocyte Esterase-Dipstick Negative /ul (Negative); Nitrite-Dipstick Negative (Negative); Occult Blood-Urine 25 /ul (Negative); Protein-Dipstick 500 mg/dl (Negative); Specific Gravity, Urine 1.025 (1.002-1.030); Urine Bilirubin Dipstick Negative (Negative); Urine Clarity Clear (Clear); Urine Urobilinogen Normal (Normal)
[2020-03-28 10:17] LABS: Red Blood Cells-Urine 0-5 SEEN /hpf (0-5); Squamous Epithelial Cells - UA 0-5 SEEN /hpf (0-5)
[2020-03-28 10:18] LABS: Fine Granular Cast- Urine 0-5 SEEN /lpf (0-5); Hyaline Cast 0-5 SEEN /lpf (0-5)
[2020-03-28 10:21] LABS: ALB/GLOB Ratio 0.9 RATIO (0.9-2.4); AST(SGOT) 16 U/L (15-37); Alanine Aminotransfer ALT/SGPT 20 U/L (16-61); Albumin, Serum 3.3 g/dL (3.2-5.0); Alkaline Phosphatase 73 U/L (45-117); Anion Gap 12 (5-15); BUN 35 mg/dL (7-18); BUN/Creat Ratio 19.6 RATIO (10-20); Calcium,Total 8.7 mg/dL (8.5-10.1); Chloride 99 mmol/L (98-107); Creatinine, Serum 1.79 mg/dL (0.70-1.30); EST Glomerular Filtration Rate 46 mL/min (>60); Est Glom Filt Rate - Afr Amer 55 mL/min (>60); Estimated Creatinine Clearance 60.18 ml/min; Globulin 3.6 g/dL (2.2-4.2); Glucose 350 mg/dL (74-106); Potassium 4.5 mmol/L (3.5-5.1); Protein, Total 6.9 g/dL (6.4-8.2); Sodium Level 133 mmol/L (136-145)
[2020-03-28 12:21] LABS: Bedside Glucose 209 mg/dL (70-110)
[2020-03-28] MEDS: Insulin Lispro 100 UNIT/ML INSULN.PEN SC (12:31)
--- NOTE | 2020-03-28 12:32 | ED.RN ---
PT REQUESTS COVID TEST. DENIES ANY S/S. STATES JUST WANTS A TEST COMPLETED. AWARE ER IS NOT FOR ASYMTOMATIC PTS BUT THAT PHYSICIAN WILL BE MADE AWARE
[2020-03-28 12:52] VITALS: BP 138/69; PULSE 72; RESP 15; O2SAT 98
== END 2020-03-28 12:53 | disposition home or self-care (01) ==
PROVIDERS: Emergency Provider Emergency Medicine; PCP Internal Medicine
DX: M54.41 Lumbago with sciatica, right side (principal); R11.2 Nausea with vomiting, unspecified; E11.65 Type 2 diabetes mellitus with hyperglycemia; Z79.4 Long term (current) use of insulin; E86.0 Dehydration
CPT/HCPCS: 80048; 80053; 81001; 82962; 87635; 96360; 96361; 96372; 99284; J7030; A4216; U0003

== ENCOUNTER 2021-07-02 14:43 | Outpatient (CLI) | payer MEDICAID, SELFPAY ==
[2021-07-02 17:12] LABS: Vitamin D,25 Hydroxy 18.8 ng/mL
[2021-07-02 17:21] LABS: ALB/GLOB Ratio 0.8 RATIO (0.9-2.4); AST(SGOT) 18 U/L (15-37); Alanine Aminotransfer ALT/SGPT 25 U/L (16-61); Albumin, Serum 3.2 g/dL (3.2-5.0); Alkaline Phosphatase 79 U/L (45-117); Anion Gap 7 (5-15); BUN 22 mg/dL (7-18); BUN/Creat Ratio 13.3 RATIO (10-20); Chloride 103 mmol/L (98-107); Cholesterol 359 mg/dL (200); Creatinine, Serum 1.65 mg/dL (0.70-1.30); EST Glomerular Filtration Rate 50 mL/min (>60); Est Glom Filt Rate - Afr Amer 60 mL/min (>60); Glucose 134 mg/dL (74-106); High Density Lipoprotein 62 mg/dL; Potassium 4.6 mmol/L (3.5-5.1); Protein, Total 7.2 g/dL (6.4-8.2); Sodium Level 137 mmol/L (136-145); Thyroid Stim Hormone (TSH) 1.98 uIU/mL (0.358-3.74); Triglycerides 124 mg/dL; Very Low Density Lipoprotein 25 mg/dL (5-40)
[2021-07-02 17:48] LABS: Microalbumin:Creatinine Ratio 2359.8 mg/g CRE (<30 mg/g CRE)
== END 2021-07-02 23:59 | disposition home or self-care (01) ==
LOC: BIMLAB 14:43
PROVIDERS: PCP Internal Medicine; Referring Provider Nurse Practitioner Family; Visit Provider Nurse Practitioner Family
DX: E10.65 Type 1 diabetes mellitus with hyperglycemia (principal)
CPT/HCPCS: 36415; 80053; 80061; 82043; 82306; 82570; 84443

== ENCOUNTER 2021-11-02 16:24 | Emergency (ER) | payer MEDICAID, SELFPAY ==
[2021-11-02 16:25] VITALS: BP 155/100; PULSE 89; RESP 18; TEMP 37.1; O2SAT 98; BMI 30.8
--- NOTE | 2021-11-02 17:35 | CT_ITS ---
STUDY: CT LUMBAR SPINE WITHOUT CONTRAST REASON FOR EXAM: Male, 41 years old. Low back pain RADIATION DOSAGE (If Supplied By Facility): CTDIvol = ( 22.04 ) mGy, DLP = ( 811.29 ) mGycm TECHNIQUE: The patient was scanned in a multi detector CT scanner. High resolution transaxial imaging was performed. Images were obtained from T12 to S1. Sagittal and coronal images were reconstructed. Individualized dose optimization techniques were used for this CT. COMPARISON: None FINDINGS: Normal lumbar lordosis. There is no substantial scoliosis. Normal vertebrae of the lumbar spine. L1-2: Normal endplates. Normal disc height and morphology. Normal bilateral facet joints. Normal central canal and bilateral lateral recesses. Normal bilateral intervertebral neural foramina. L2-3: Normal endplates. Normal disc height and morphology. Normal bilateral facet joints. Normal central canal and bilateral lateral recesses. Normal bilateral intervertebral neural foramina. L3-4: Normal endplates. Normal disc height and morphology. Normal bilateral facet joints. Normal central canal and bilateral lateral recesses. Normal bilateral intervertebral neural foramina. L4-5: Normal endplates. Normal disc height and morphology. Normal bilateral facet joints. Normal central canal and bilateral lateral recesses. Normal bilateral intervertebral neural foramina. L5-S1: Normal endplates. Normal disc height and morphology. Normal bilateral facet joints. Normal central canal and bilateral lateral recesses. Normal bilateral intervertebral neural foramina. Normal visualized paraspinous soft tissue structures. CT/Spine Lumbar without Contrast IMPRESSION: Normal unenhanced CT examination of the lumbar spine. Electronically Signed: Luisito Jackson MD at 18:45 EDT ,
--- NOTE | 2021-11-02 17:35 | CT_ITS ---
STUDY: CT BRAIN WITHOUT CONTRAST REASON FOR EXAM: Male, 41 years old. ams RADIATION DOSAGE (If Supplied By Facility): CTDIvol = ( 44.99 ) mGy, DLP = ( 745.49 ) mGycm TECHNIQUE: Transaxial CT imaging of the brain was performed without administration of intravenous contrast material. Individualized dose optimization techniques were used for this CT. COMPARISON: 12/04/2019 FINDINGS: Normal soft tissue structures. Normal calvarium. Normal size ventricles and extra-axial spaces for the patient''s age. Normal white matter tracts of the cerebral hemispheres. Normal basal ganglia and thalami. Normal brainstem. Normal cerebellum. There is no intracranial hemorrhage. There are no findings of an acute ischemic infarction. Normal visualized paranasal sinuses. CT/Brain/Head without Contrast IMPRESSION: Normal unenhanced CT scan of the brain. Electronically Signed: Luisito Jackson MD at 18:24 EDT ,
--- NOTE | 2021-11-02 17:36 | EDS_ITS ---
HPI History of Present Illness Chief Complaint: Other, Pain/Inj Informant: patient Narrative Narrative: 41-year-old male history of diabetes presenting to the emergency room with low back pain and facial swelling. Patient also notes some confusion. He states that he woke Friday morning when he went to the office they were wondering why the skin around his eyes were swollen. States that he started developed low back pain in the lumbar region that radiates down the back of both legs to the level of the knee. He denies any known trauma immunosuppression frequent injections or other red flag history. No bowel or bladder dysfunction. No loss of muscle strength or sensory changes. As an example of his confusion he states that he wrote his birthdate wrong and backwards but he is dyslexic so that could just be that but he states that he has other examples of how he feels confused such as forgetting to get his pop when he goes into the kitchen and just sitting down and resting. He denies any fevers or other infectious symptoms. No IVD. He states what he is worried about his kidney failure. [facility] Medical History Abscess Charcot foot due to diabetes mellitus Obesity Type 1 diabetes mellitus Home Medications insulin aspart U-100 100 unit/mL (3 mL) subcutaneous pen 40 unit (0.4 mL) subcut TID DM #36 mL 01/07/20 [Rx Last Taken Unknown] insulin pump cartridge (Omnipod Dash Insulin Pod) #30 ea 03/22/20 [Rx Last Taken Unknown] pen needle, diabetic 32 gauge x 5/32 (BD Ultra-Fine Carol Pen Needle) #150 ea 10/10/20 [Rx Last Taken Unknown] alcohol swabs (BD Alcohol Swabs) 1 pad topical .4 times daily #200 ea 01/15/21 [Rx Last Taken Unknown] lisinopril 20 mg tablet 20 mg PO DAILY #90 tabs 07/03/21 [Rx Last Taken Unknown] flash glucose sensor (FreeStyle Cielo 2 Sensor kit) #2 ea 07/18/21 [Rx Last Taken Unknown] blood sugar diagnostic (FreeStyle Lite Strips) #100 ea 10/08/21 [Rx Last Taken Unknown] blood-glucose meter,continuous (Dexcom G6 Appointment Specialist misc) #1 ea 10/08/21 [Rx Last Taken Unknown] blood-glucose sensor (Dexcom G6 Sensor device) #9 ea 10/08/21 [Rx Last Taken Unknown] blood-glucose transmitter (Dexcom G6 Transmitter device) #1 ea 10/08/21 [Rx Last Taken Unknown] insulin pump cart,automated,BT (Omnipod 5 G6 Pods (Gen 5) subcutaneous cartri dge) #30 ea 10/08/21 [Rx Last Taken Unknown] insulin pump cartridge,automated dose,BT with controller subcutaneous (Omnipod 5 G6 Intro Kit (Gen 5) subcutaneous cartridge with controller) #1 ea 10/08/21 [Rx Last Taken Unknown] lancing device with lancets kit ([employer] Delica Plus Lancing Device kit) #100 ea 10/08/21 [Rx Last Taken Unknown] rosuvastatin 10 mg tablet 10 mg PO DAILY #30 tabs 10/24/21 [Rx Last Taken Unknown] hydrocodone-acetaminophen 5-325mg 5mg-325mg 1 tab PO Q6H PRN PRN Pain 3 days #12 TABLETS 11/02/21 [Rx Last Taken Unknown] prednisone 20 mg tablet 60 mg PO DAILY #12 TABLETS 11/02/21 [Rx Last Taken Unknown] Allergy/AdvReac Type Severity Reaction Status Date / Time No Known Allergies Allergy Verified 11/02/21 16:25 Family History Other Diabetes Social History Smoking Status: Never smoker alcohol intake: never substance use type: does not use ROS ROS ED Constitutional Constitutional ED: Denies chills or weight loss Eyes Eyes: Reports other Details: Periorbital swelling ; Denies change in vision or diplopia ENT ENT ED: Denies ear pain, rhinorrhea or sore throat Cardiovascular Cardiovascular: Denies chest pain, orthopnea, palpitations or racing heartbeat Respiratory/Chest Respiratory/Chest: Denies cough, dyspnea or orthopnea Gastrointestinal Gastrointestinal: Denies abdominal pain, diarrhea, nausea or vomiting Genitourinary Genitourinary ED: Denies dysuria, hematuria or urinary frequency Musculoskeletal Musculoskeletal: Reports back pain; Denies arthralgias, myalgias or neck pain Integumentary Denies abscess or rash Neurologic Neurologic: Reports paresthesias and other Details: Confusion ; Denies headache(s) or weakness Psychiatric Psychiatric: Denies anxiety, depression, suicidal ideation or suicidal thoughts Endocrine Endocrinology: Denies polydipsia, polyphagia or polyuria Allergic/Immunologic Allergic/Immunologic ED: Denies mouth swelling, tongue swelling or urticaria EXAM Physical Exam Const Vital Signs: 11/02/21 16:25 Temperature 98.7 F Temperature Source Temporal Pulse Rate 89 Respiratory Rate 18 Blood Pressure 155/100 H Blood Pressure Mean 118 Pulse Ox 98 Oxygen Delivery Method Room Air Positive well nourished and well developed General Appearance ED: well developed HEENT Reports normocephalic, head/scalp atraumatic and moist mucous membranes HEENT Narrative: There is periorbital edema and slight erythema around each eye. Eyes PERRL and EOMs intact bilaterally Eyes Narrative: Conjunctiva appears normal. Neck no lymphadenopathy, supple and no JVD Resp normal respiratory effort and clear to auscultation bilaterally Cardio regular rate, regular rhythm and no murmurs GI normal to inspection, nondistended, normoactive bowel sounds and non-tender Palpation: soft Back/Spine no CVA tenderness Back/Spine Narrative: Patient has painful range of motion. He has tenderness to palpation in the mid to lower lumbar paraspinal musculature. I do not appreciate any skin/tissue texture changes to suggest underlying infection. Extremity normal to inspection General Extremety ED: Negative for edema General Extremity: Negative for edema Neuro oriented x3 and CN's II-XII intact bilaterally Sensorium / Orientation: alert Motor Exam: strength 5/5 throughout Psych mental status grossly normal Mood & Affect: Negative for depressed or tearful Skin no rashes or lesions noted and no wounds MDM MDM MDM Narrative Medical decision making narrative: Basic blood work hemoglobin 11.5 creatinine 1.89 which is higher than where he has been. He has never visited with a cork sorter. Urinalysis shows protein no obvious infection. CT of the brain and cervical spine were negative for acute. Patient received a dose of Solu-Medrol and Pepcid. He states that his back pain is significantly better. I will write for him to have prednisone as I think that the facial swelling is most likely a local reaction but certainly I cannot rule out the possibility of kidneys contributing. We will treat the back pain initially as conservative unless its not improving. Return if worsening or concerns Lab Data Attestation: I reviewed the patient's lab results. Labs: Laboratory Results - last 24 hr 11/02/21 11/02/21 11/02/21 17:15 17:15 17:30 WBC 5.1 RBC 4.24 L Hgb 11.5 L Hct 35.8 L MCV 84.4 MCH 27.1 MCHC 32.1 RDW Std Deviation 40.1 RDW Coeff of Marcella 13.1 Plt Count 291 MPV 9.1 Immature Gran % (Auto) 0.400 Neut % (Auto) 61.6 Lymph % (Auto) 21.2 Bandera % (Auto) 13.1 H Eos % (Auto) 3.3 Baso % (Auto) 0.4 Absolute Neuts (auto) 3.2 Absolute Lymphs (auto) 1.09 Nucleated RBC % 0 Sodium 138 Potassium 4.1 Chloride 108 H Carbon Dioxide 27.0 Anion Gap 3 L BUN 27 H Creatinine 1.89 H Estim Creat Clear Calc 55.89 Est GFR (MDRD) Af Amer 51 L Est GFR (MDRD) Non-Af 42 L BUN/Creatinine Ratio 14.3 Glucose 98 Calcium 8.9 Total Bilirubin 0.30 AST 25 ALT 28 Alkaline Phosphatase 66 Total Protein 6.6 Albumin 3.0 L Globulin 3.6 Albumin/Globulin Ratio 0.8 L Urine Color Yellow Urine Clarity Clear Urine pH 6.0 Ur Specific Cummings 1.020 Urine Protein 500 H Urine Glucose (UA) 50 H Urine Ketones Negative Urine Occult Blood 25 H Urine Nitrite Negative Urine Bilirubin Negative Urine Urobilinogen Normal Ur Leukocyte Esterase Negative Urine RBC 0-5 SEEN Urine WBC 0 SEEN Ur Squamous Epith Cells 0-5 SEEN Urine Bacteria RARE Urine Mucus 0 SEEN Radiography Diagnostic Testing: Clinical Impression(s) from Imaging Studies Brain CT 11/02/21 17:35 IMPRESSION: Normal unenhanced CT scan of the brain. Electronically Signed: Luisito Jackson MD at 18:24 EDT , Lumbar Spine CT 11/02/21 17:35 IMPRESSION: Normal unenhanced CT examination of the lumbar spine. Electronically Signed: Luisito Jackson MD at 18:45 EDT , Discharge Plan Triage Chief Complaint: Other, Pain/Inj ED Provider: Jan Elizalde Dx/Rx/DC Orders Clinical Impression: DM type 1 (diabetes mellitus, type 1), CKD (chronic kidney disease), Acute lumbar radiculopathy, Facial swelling Instructions: ED Sciatica Prescriptions: New hydrocodone-acetaminophen [hydrocodone-acetaminophen] 5-325 mg tablet 1 tab PO Q6H PRN PRN (Reason: Pain) 3 Days Qty: 12 0RF prednisone 20 mg tablet 60 mg PO DAILY Qty: 12 0RF Rx Instructions: Begin 03 November 2021 No Action (DME) FreeStyle Lite Strips Strip See Rx Instructions .Route Qty: 100 6RF Rx Instructions: 3x/day (DME) lancing device with lancets [OneTouch Delica Plus Lanc Dev] Kit See Rx Instructions .Route Qty: 100 1RF Rx Instructions: 4x/day (DME) Omnipod 5 G6 Pods (Gen 5) Cartridge See Rx Instructions .Route Qty: 30 1RF Rx Instructions: 1 pod q 72 hours (DME) Omnipod 5 G6 Intro Kit (Gen 5) Cartridge See Rx Instructions .Route Qty: 1 0RF Rx Instructions: As directed (DME) Dexcom G6 Appointment Specialist Misc See Rx Instructions .Route Qty: 1 0RF Rx Instructions: As directed (DME) Dexcom G6 Sensor Device See Rx Instructions .Route Qty: 9 1RF Rx Instructions: 1 sensor q 10 days (DME) Dexcom G6 Transmitter Device See Rx Instructions .Route Qty: 1 1RF Rx Instructions: 1 q 90 days insulin aspart U-100 100 unit/mL (3 mL) insulin pen 40 unit subcut TID Qty: 36 5RF (DME) Omnipod Dash Pods (Gen 4) Cartridge See Rx Instructions .ROUTE .MEDSUPPLY Qty: 30 3RF Rx Instructions: change every 72 hours (DME) pen needle, diabetic [BD Ultra-Fine Carol Pen Needle] 32 gauge x 5/32 needle See Rx Instructions .ROUTE .MEDSUPPLY Qty: 150 5RF Rx Instructions: 4 times daily alcohol swabs [BD Alcohol Swabs] Pads, Medicated 1 pad TOPICAL .4 times daily Qty: 200 5RF lisinopril 20 mg tablet 20 mg PO DAILY Qty: 90 3RF (DME) FreeStyle Cielo 2 Sensor Kit See Rx Instructions .ROUTE .MEDSUPPLY Qty: 2 6RF Rx Instructions: As directed rosuvastatin 10 mg tablet 10 mg PO DAILY Qty: 30 5RF Primary Care Provider: Kristal Luke Referrals: Kristal Luke MD [Primary Care Provider] - 1 Week if not improving Daisy Diaz MD [Med Staff - Consulting] - (for nephrology) Disposition Disposition: Home, Self Care
[2021-11-02] MEDS: MethylPREDNISolone 125 MG/2 ML Vial 60 MG IV (17:40)
[2021-11-02] MEDS: Famotidine 20 MG Tablet 40 MG PO (17:40)
[2021-11-02 17:56] LABS: Mucous, Urine 0 SEEN /hpf (<or=2+); White Blood Cells 0 SEEN /hpf (0-5)
[2021-11-02 17:58] LABS: Color, Urine Yellow (Yellow); Glucose, Dipstick 50 mg/dl (Normal); Ketone-Dipstick Negative (Negative); Leukocyte Esterase-Dipstick Negative /ul (Negative); Nitrite-Dipstick Negative (Negative); Occult Blood-Urine 25 /ul (Negative); Protein-Dipstick 500 mg/dl (Negative); Urine Bilirubin Dipstick Negative (Negative); Urine Clarity Clear (Clear); Urine Urobilinogen Normal (Normal)
[2021-11-02 17:58] LABS: Absolute Lymphocyte Count 1.09 X10^3/uL (0.83-4.51); Absolute Neutrophil Count 3.2 X10^3/uL (2.0-7.7); Basophil# 0.02 X10^3/uL; Basophil% 0.4 % (0-1); Eosinophil# 0.17 X10^3/uL; Eosinophils% 3.3 % (0-5); Hematocrit 35.8 % (40-54); Hemoglobin 11.5 g/dL (13.0-16.5); Lymphocyte # 1.09 X10^3/ul (0.83-4.51); Lymphocyte % 21.2 % (19-41); Mean Corp Hgb Conc 32.1 g/dL (32-36); Mean Corpuscular Hgb 27.1 pg (27.0-32.0); Mean Corpuscular Volume 84.4 fL (80-94); Mean Platelet Vol. 9.1 fl (6.2-12.0); Monocyte# 0.67 X10^3/uL; Monocyte% 13.1 % (0-10); NRBC Flagged by Analyzer 0 % (0-5); Neutrophil # 3.16 X10^3/uL (2.7-7.7); Neutrophil % 61.6 % (47-70); Platelet Count 291 K/mm3 (150-450); RBC Distribution Width CV 13.1 % (11.6-14.6); RBC Distribution Width SD 40.1 fl (35.1-43.9); Red Blood Count 4.24 M/mm3 (4.6-6.2); White Blood Count 5.1 K/mm3 (4.4-11.0)
[2021-11-02 18:10] LABS: Bacteria RARE /hpf (None Seen); Red Blood Cells-Urine 0-5 SEEN /hpf (0-5); Squamous Epithelial Cells - UA 0-5 SEEN /hpf (0-5)
[2021-11-02 18:18] LABS: ALB/GLOB Ratio 0.8 RATIO (0.9-2.4); AST(SGOT) 25 U/L (15-37); Alanine Aminotransfer ALT/SGPT 28 U/L (16-61); Alkaline Phosphatase 66 U/L (45-117); Anion Gap 3 (5-15); BUN 27 mg/dL (7-18); BUN/Creat Ratio 14.3 RATIO (10-20); Calcium,Total 8.9 mg/dL (8.5-10.1); Chloride 108 mmol/L (98-107); Creatinine, Serum 1.89 mg/dL (0.70-1.30); EST Glomerular Filtration Rate 42 mL/min (>60); Est Glom Filt Rate - Afr Amer 51 mL/min (>60); Estimated Creatinine Clearance 55.89 ml/min; Globulin 3.6 g/dL (2.2-4.2); Glucose 98 mg/dL (74-106); Potassium 4.1 mmol/L (3.5-5.1); Protein, Total 6.6 g/dL (6.4-8.2); Sodium Level 138 mmol/L (136-145)
[2021-11-02 19:18] VITALS: BP 150/99; PULSE 79; RESP 18; O2SAT 100
== END 2021-11-02 19:19 | disposition home or self-care (01) ==
PROVIDERS: Emergency Provider Emergency Medicine; PCP Internal Medicine; Visit Provider Emergency Medicine
DX: R22.0 Localized swelling, mass and lump, head (principal); E10.610 Type 1 diabetes mellitus with diabetic neuropathic arthropathy; E10.22 Type 1 diabetes mellitus with diabetic chronic kidney disease; Z79.4 Long term (current) use of insulin; E66.9 Obesity, unspecified; N18.9 Chronic kidney disease, unspecified; M54.16 Radiculopathy, lumbar region
CPT/HCPCS: 70450; 72131; 80053; 81001; 85025; 96374; 99283; A4216

== ENCOUNTER → 2022-12-23 | Outpatient (CLI) | payer MEDICAID, SELFPAY ==
[2022-12-23 13:46] LABS: Hemoglobin A1c 8.5 % (3.8-5.6)
[2022-12-23 14:13] LABS: ALB/GLOB Ratio 0.7 RATIO (0.9-2.4); AST(SGOT) 19 U/L (15-37); Alanine Aminotransfer ALT/SGPT 28 U/L (16-61); Albumin, Serum 2.7 g/dL (3.2-5.0); Alkaline Phosphatase 80 U/L (45-117); Anion Gap 5 (5-15); BUN 42 mg/dL (7-18); BUN/Creat Ratio 12.1 RATIO (10-20); Calcium,Total 9.2 mg/dL (8.5-10.1); Chloride 110 mmol/L (98-107); Cholesterol 262 mg/dL (200); Creatinine, Serum 3.47 mg/dL (0.70-1.30); EST Glomerular Filtration Rate 21 mL/min (>60); Est Glom Filt Rate - Afr Amer 25 mL/min (>60); Globulin 3.8 g/dL (2.2-4.2); Glucose 132 mg/dL (74-106); High Density Lipoprotein 64 mg/dL; Potassium 4.7 mmol/L (3.5-5.1); Protein, Total 6.5 g/dL (6.4-8.2); Sodium Level 140 mmol/L (136-145); Thyroid Stim Hormone (TSH) 1.82 uIU/mL (0.358-3.74); Triglycerides 112 mg/dL; Very Low Density Lipoprotein 22 mg/dL (5-40)
== END | disposition home or self-care (01) ==
LOC: LAB 12:49
PROVIDERS: Internal Medicine Endocrinology, Diabetes & Metabolism; PCP Internal Medicine; Referring Provider Nurse Practitioner Family; Visit Provider Nurse Practitioner Family
DX: E10.9 Type 1 diabetes mellitus without complications (principal); I10 Essential (primary) hypertension; E66.9 Obesity, unspecified
CPT/HCPCS: 36415; 80053; 80061; 82043; 82306; 82570; 83036; 84443

== ENCOUNTER 2023-04-07 11:16 | Emergency (ER) | payer MEDICAID, SELFPAY ==
[2023-04-07 11:16] VITALS: BP 187/104; PULSE 101; RESP 18; TEMP 36.3; O2SAT 99; BMI 31.1
--- NOTE | 2023-04-07 11:31 | EDS_ITS ---
HPI <RAVINDER Mustafa - Last Filed: 04/07/23 12:05> History of Present Illness Chief Complaint: Other, Pain/Inj Narrative Narrative: 42-year-old male with history of type 1 diabetes, kidney disease, cholesterol presents to the emerged department for 2 separate issues. Patient is over the last 2 days, has been having some crackling in his left ear, significant sharp pains that goes down to his throat. He has had a runny nose over the last couple days. He also mechanical fall 2 days ago injuring his left foot. He states he has most of his pain around his toes. Patient denies any nausea or vomiting. He states he is having difficulty hearing out of his left ear. Denies any fever or chills. PFSH <RAVINDER Mustafa - Last Filed: 04/07/23 12:05> [facility] Medical History Abscess Charcot foot due to diabetes mellitus Diabetes mellitus type 1 Insulin pump titration Obesity Presence of insulin pump Type 1 diabetes mellitus Home Medications insulin pump cartridge (Omnipod Dash Insulin Pod) #30 ea 03/22/20 [Rx Last Taken Unknown] blood sugar diagnostic (FreeStyle Lite Strips) #100 ea 10/08/21 [Rx Last Taken Unknown] blood-glucose meter,continuous (Dexcom G6 Voip Engineer) #1 ea 10/08/21 [Rx Last Taken Unknown] hydrocodone-acetaminophen 5-325mg 5mg-325mg 1 tab PO Q6H PRN PRN Pain 3 days #12 TABLETS 11/02/21 [Rx Last Taken Unknown] prednisone 20 mg tablet 60 mg (3 x 20 mg) PO DAILY #12 TABLETS 11/02/21 [Rx Last Taken Unknown] lancing device with lancets kit ([employer] Delica Plus Lancing Device kit) #100 ea 11/26/21 [Rx Last Taken Unknown] insulin aspart U-100 100 unit/mL (3 mL) subcutaneous pen 40 unit (0.4 mL) subcut TID DM #36 mL 12/17/21 [Rx Last Taken Unknown] pen needle, diabetic 32 gauge x 5/32 (BD Ultra-Fine Carol Pen Needle) #150 ea 02/26/22 [Rx Last Taken Unknown] rosuvastatin 10 mg tablet 10 mg PO DAILY #30 tabs 04/04/22 [Rx Last Taken Unknown] alcohol swabs (BD Alcohol Swabs) 1 pad topical .4 times daily #200 ea 05/20/22 [Rx Last Taken Unknown] blood-glucose sensor (Dexcom G6 Sensor device) #9 ea 10/31/22 [Rx Last Taken Unknown] insulin aspart U-100 100 unit/mL subcutaneous solution (Novolog U-100 Insulin aspart) 80 unit (0.8 mL) continuous subcutaneous infusion .continuous #72 mL 12/19/22 [Rx Last Taken Unknown] amlodipine 10 mg tablet 10 mg PO DAILY #30 tabs 12/23/22 [Rx Last Taken Unknown] cholecalciferol (vitamin D3) 1,250 mcg (50,000 unit) capsule 1,250 mcg PO QWEEK #12 caps 12/24/22 [Rx Last Taken Unknown] insulin pump cart,automated,BT (Omnipod 5 G6 Pods (Gen 5) subcutaneous cartridge) #30 ea 01/07/23 [Rx Last Taken Unknown] blood-glucose transmitter (Dexcom G6 Transmitter device) #1 ea 02/18/23 [Rx Last Taken Unknown] amoxicillin 500 mg capsule 500 mg PO TID 7 days #21 caps 04/07/23 [Rx Last Taken Unknown] fluticasone propionate 50 mcg/actuation nasal spray,suspension (24 Hour Allergy Relief) 2 spray intranasal DAILY #16 grams 04/07/23 [Rx Last Taken Unknown] Allergy/AdvReac Type Severity Reaction Status Date / Time No Known Allergies Allergy Verified 12/19/22 12:01 Family History Other Diabetes Social History Smoking Status: Never smoker alcohol intake: never substance use type: does not use ROS <RAVINDER Mustafa - Last Filed: 04/07/23 12:05> ROS ED ROS Narrative Constitutional: Negative for fever, chills, weight loss, weakness Eyes: Negative for vision loss, vision change, double vision ENT: Negative for any sore throat, congestion. Positive for left ear pain left jaw pain Cardiovascular: Negative for any chest pain, tightness, palpitations Respiratory: Negative for any cough, sputum production, hemoptysis, dyspnea, dyspnea on exertion, orthopnea Gastrointestinal: Negative for any abdominal pain, nausea, vomiting, diarrhea, constipation, blood in stool, blood in vomit : Negative for any urinary frequency, dysuria, retention, blood in urine Muscle skeletal: Negative for any myalgias, arthralgias, neck pain, back pain. Positive left foot pain Neurological: Negative for any headache, syncope, paresthesias, dizziness Skin: Negative for any rashes, lumps, itching, abrasions, lacerations Psychiatric: Negative for any depression, anxiety, stress, suicidal ideation, homicidal ideation Hematologic: Negative for any easy bruising, excessive bruising, easy bleeding Allergies: Negative for any eczema, hives, rash EXAM <RAVINDER Mustafa - Last Filed: 04/07/23 12:05> Physical Exam Narrative Exam Narrative: Vital signs reviewed. HEET: Head normocephalic atraumatic, TMs clear bilaterally negative for any erythema, left TM shows slight effusion, however no bulging, no significant erythema.. Posterior pharynx is clear, moist mucous membranes. Nares clear bilaterally. For any pain along the mastoid area, no evidence of any significant cervical lymphadenopathy. Neck: Supple with no lymphadenopathy or tenderness. No signs of meningismus. Cardiac: Regular rate and rhythm no murmurs gallops or rubs, equal peripheral pulses bilaterally. Respiratory: Lungs clear to auscultation bilaterally. No chest tenderness. Abdomen: Soft, nontender, nondistended. No abdominal bruit or pulsatile masses. No hepatosplenomegaly Extremities: No peripheral edema, no signs of gross trauma or deformity. Active full range of motion of all extremities. Slight bruising to the left third toe. +2 pedal pulse. No significant deformity. Neuro: Cranial nerves II through XII intact, no focal neurological deficits. Skin: Clean dry and intact with no rash, purpura, petechiae, vesicles or pustules. Backs/flank: No CVA tenderness, no midline spinal tenderness, no deformity. Psych: Normal mood and affect. No SI, HI or acute psychosis. Const Vital Signs: 04/07/23 11:16 04/07/23 11:23 Temperature 97.3 F L Temperature Source Temporal Pulse Rate 101 H Respiratory Rate 18 Respiratory Effort Normal Respiratory Pattern Normal Blood Pressure 187/104 H Blood Pressure Mean 131 Pulse Ox 99 Oxygen Delivery Method Room Air Positive well nourished and well developed General Appearance ED: well developed <Dr. Ayush Lee MD - Last Filed: 04/07/23 11:39> Physical Exam Const Vital Signs: 04/07/23 11:16 04/07/23 11:23 Temperature 97.3 F L Temperature Source Temporal Pulse Rate 101 H Respiratory Rate 18 Respiratory Effort Normal Respiratory Pattern Normal Blood Pressure 187/104 H Blood Pressure Mean 131 Pulse Ox 99 Oxygen Delivery Method Room Air [facility] <RAVINDER Mustafa - Last Filed: 04/07/23 12:05> [facility] Radiography Diagnostic Testing: Clinical Impression(s) from Imaging Studies Foot X-Ray 04/07/23 11:41 IMPRESSION: No evidence of acute fracture. Electronically Signed: Randy Cordon MD at 11:58 EST , Treatment and Re-Evaluation :: Patient appears generally well, patient appears nontoxic, vital signs are stable. Presenting to the emergency department with complaints of left ear pain, left jaw pain as well as left foot pain. Left ear differential diagnose includes left otitis media, otitis externa, effusion. Left foot pain, left toe fracture, left toe contusion. Patient received x-rays of left foot. All radiologic examinations were read, reviewed by the emergency department attending. From these reads, a plan of care will be put in place. Patient's x-ray left foot was unremarkable. No acute fracture. Patient be treated for acute otitis media, patient also given Flonase as well as amoxicillin. He is instructed take the full dose of antibiotics. Will also use ibuprofen, Tylenol. He will follow-up closely with his PCP. Patient no further questions, he is stable for discharge. <Dr. Ayush Lee MD - Last Filed: 04/07/23 11:39> [facility] Narrative Medical decision making narrative: I have personally performed a face to face assessment of the patient and have reviewed the ARTUR Note. I performed a substantive portion of the visit including all aspects of the following. My lan findings include: History is 42-year-old male history of diabetes and chronic kidney disease took a fall the other day when he tripped injuring his left foot. Primarily toe pain. Also is complaining of some left ear discomfort in the last 12 hours. Exam is [42-year-old male no acute distress vital signs stable afebrile. H EENT exam posterior pharynx normal. No trouble opening closing his jaw. No deformity. No trismus. Posterior pharynx normal. Both TMs are little erythematous or may be some fluid behind both TMs. Some mild tenderness along his left eustachian tube. Neck and trachea nontender no lymphadenopathy. Lungs clear to auscultation bilaterally. Heart regular rhythm rate about 100 no murmur. Chest wall and ribs nontender. Abdomen soft nontender. Back and spine. Pelvic girdle intact. Moving all 4 extremities. Minor abrasions to his knees. Full flexion extension of both knees hips and ankles. Left foot the third toe or mid toe there is bruising and tenderness. X-ray being obtained. He is able to wiggle his toes.] Medical Decision Making [x-ray of the left foot to rule out fracture. Placed him on amoxicillin 500 3 times daily for his ear it possibly may be infected versus fluid behind the eardrum.] Other additions or changes: [None] History & Record Review Discussion w/independent historian: Family Additional record(s) reviewed:: Prior inpatient record, Prior outpatient record, Prior ED visit and Prior labs Radiography Diagnostic Testing: Clinical Impression(s) from Imaging Studies Foot X-Ray 04/07/23 11:41 IMPRESSION: No evidence of acute fracture. Electronically Signed: Randy Cordon MD at 11:58 EST Reading Location ID and State: [facility] / [place] Tel , Service support , Discharge Plan Triage Chief Complaint: Other, Pain/Inj ED Midlevel Provider: Chava Joy ED Provider: Ayush Lee Dx/Rx/DC Orders Clinical Impression: History of chronic kidney disease, Fracture of toe, Infective left otitis media, History of diabetes mellitus, Fall Instructions: ED Otitis Media Adult, ED Fracture, Toe, Closed Prescriptions: New amoxicillin 500 mg capsule 500 mg PO TID 7 Days Qty: 21 0RF fluticasone propionate [24 Hour Allergy Relief] 50 mcg/actuation spray,suspension 2 spray intranasal DAILY Qty: 16 0RF Rx Instructions: administer into each nostril No Action (DME) FreeStyle Lite Strips Strip See Rx Instructions .Route Qty: 100 6RF Rx Instructions: 3x/day (DME) Dexcom G6 Voip Engineer Misc See Rx Instructions .Route Qty: 1 0RF Rx Instructions: As directed insulin aspart U-100 [Novolog U-100 Insulin aspart] 100 unit/mL solution 80 unit continuous subcutaneous infusion .continuous Qty: 72 1RF hydrocodone-acetaminophen [hydrocodone-acetaminophen] 5-325 mg tablet 1 tab PO Q6H PRN PRN (Reason: Pain) 3 Days Qty: 12 0RF prednisone 20 mg tablet 60 mg PO DAILY Qty: 12 0RF Rx Instructions: Begin 03 November 2021 (DME) Omnipod Dash Pods (Gen 4) Cartridge See Rx Instructions .ROUTE .MEDSUPPLY Qty: 30 3RF Rx Instructions: change every 72 hours (DME) lancing device with lancets [[employer] Delica Plus Lanc Dev] Kit See Rx Instructions .Route Qty: 100 1RF Rx Instructions: 4x/day insulin aspart U-100 100 unit/mL (3 mL) insulin pen 40 unit subcut TID Qty: 36 5RF (DME) pen needle, diabetic [BD Ultra-Fine Carol Pen Needle] 32 gauge x 5/32 needle See Rx Instructions .ROUTE .MEDSUPPLY Qty: 150 5RF Rx Instructions: 4 times daily rosuvastatin 10 mg tablet 10 mg PO DAILY Qty: 30 5RF alcohol swabs [BD Alcohol Swabs] Pads, Medicated 1 pad TOPICAL .4 times daily Qty: 200 5RF (DME) Dexcom G6 Sensor Device See Rx Instructions .Route Qty: 9 1RF Rx Instructions: 1 sensor q 10 days amlodipine 10 mg tablet 10 mg PO DAILY Qty: 30 5RF cholecalciferol (vitamin D3) 1,250 mcg (50,000 unit) capsule 1,250 mcg PO QWEEK Qty: 12 3RF (DME) Omnipod 5 G6 Pods (Gen 5) Cartridge See Rx Instructions .Route Qty: 30 1RF Rx Instructions: 1 pod q 72 hours (DME) Dexcom G6 Transmitter Device See Rx Instructions .Route Qty: 1 1RF Rx Instructions: 1 q 90 days Primary Care Provider: Kristal Luke Referrals: Kristal Luke MD [Primary Care Provider] - Disposition Disposition: Home, Self Care
--- NOTE | 2023-04-07 11:41 | RAD_ITS ---
INDICATION: fall EXAMINATION/TECHNIQUE: X-RAY - LEFT XR Foot Min 3 Views 3 VIEWS COMPARISON: No relevant prior comparison study available FINDINGS: SOFT TISSUES: No soft tissue swelling or gas. No radiopaque foreign body. BONES/JOINTS: No acute fracture or subluxation.. Deformity of the base of the fifth metatarsal likely due to old fracture. Preservation of the joint space.. No sclerotic or destructive changes observed. RAD/Foot min 3 Views IMPRESSION: No evidence of acute fracture. Electronically Signed: Randy Cordon MD at 11:58 EST ,
== END 2023-04-07 12:27 | disposition home or self-care (01) ==
LOC: ED 11:47
PROVIDERS: Emergency Provider Emergency Medicine; PCP Internal Medicine; Visit Provider Emergency Medicine
DX: M79.676 Pain in unspecified toe(s) (principal); E10.22 Type 1 diabetes mellitus with diabetic chronic kidney disease; Z79.4 Long term (current) use of insulin; N18.9 Chronic kidney disease, unspecified; H66.92 Otitis media, unspecified, left ear; W19.XXXA Unspecified fall, initial encounter; Z96.41 Presence of insulin pump (external) (internal); Z79.899 Other long term (current) drug therapy
CPT/HCPCS: 73630; 99283

== ENCOUNTER → 2023-05-16 | Outpatient (CLI) | payer MEDICAID, SELFPAY ==
[2023-05-16 17:35] LABS: Hemoglobin A1c 7.9 % (3.8-5.6)
--- OUTSIDE RECORDS SUMMARY | 2023-05-16 18:00 | XMS RPT_ITS | CCD ---
Author Name Unknown Address [address] [place] [address] Organization [facility] Care Team Providers Care Title Specialist Name Role Phone Kristal Sullivan MD Primary Care Provider [phone] Reid Ko MD Unavailable Reid Ko MD Unavailable GANTA, KRISTAL Referring Unavailable GANTA, KRISTAL Primary Care Unavailable GANTA, KRSITAL Referring Unavailable GANTA, KRISTAL Primary Care Unavailable YAS MURRAY Attending Unavailable GANTA, KRISTAL Primary Care Unavailable GANTA, KRISTAL Attending Unavailable GANTA, KRISTAL Primary Care Unavailable GANTA, KRISTAL Referring Unavailable GANTA, KRISTAL Primary Care Unavailable GANTA, KRISTAL Attending Unavailable GANTA, KRISTAL Primary Care Unavailable Allergies Allergy Classification Reported Allergen(s) Allergy Type Date of Onset Reaction(s) Facility (10 sources) Seasonal allergy; Translations: [SEASONAL ALLERGIES] Allergy to substance 11-17-2014 Intolerance [facility] Work Phone: Medications Current Medications Medication Drug Class(es) Dates Sig (Normalized) Sig (Original) phentermine hydrochloride 37.5 mg oral tablet (7 sources) Sympathomimetic Amine Anorectic Start: 07-02-2022 End: 08-01-2022 take 1 tablet by mouth once daily Phentermine HCl (ADIPEX-P) 37.5 mg tablet Indications: Class 1 obesity with serious comorbidity in adult, unspecified BMI, unspecified obesity type Take 1 tablet by mouth once daily for 30 days. 30 tablet 0 07/02/2022 08/01/2022 Active Completed/Discontinued Medications Medication Drug Class(es) Dates Sig (Normalized) Sig (Original) carvedilol 12.5 mg oral tablet (9 sources) alpha-Adrenergic Darvin, beta-Adrenergic Darvin Start: 12-25-2020 take 1 tablet by mouth twice daily carvedilol (COREG) 12.5 mg tablet Take 1 tablet by mouth twice daily. 60 tablet 2 12/25/2020 Active Problems Active Problems Problem Classification Problem Date Documented Date Episodic/Chronic Developmental disorders (9 sources) Developmental dyslexia; 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] 03-13-2006 Chronic Diabetes mellitus with complications (15 sources) Type 1 diabetes mellitus; Translations: [Uncontrolled type 1 diabetes mellitus with proliferative retinopathy] Onset: 03-13-2006 05-24-2016 Chronic Disorders of lipid metabolism (11 sources) Mixed hyperlipidemia; Translations: [Mixed hyperlipidemia] Onset: 03-13-2006 07-17-2018 Chronic Esophageal disorders (10 sources) Gastroesophageal reflux disease; Translations: [Gastro-esophageal reflux disease without esophagitis] Onset: 11-17-2014 03-26-2021 Chronic Essential hypertension (11 sources) Essential hypertension; Translations: [Essential (primary) hypertension] Onset: 12-01-2020 12-01-2020 Chronic Fluid and electrolyte disorders (1 source) Hyperosmolality and hypernatremia; Translations: [Type 1 diabetes mellitus with hyperosmolarity without coma (HCC)] Onset: 04-26-2022 Episodic Immunizations and screening for infectious disease (4 sources) Viral screening status; Translations: [Encounter for screening for other viral diseases] Onset: 05-31-2022 Episodic Other endocrine disorders (10 sources) Hypoglycemia; Translations: [Hypoglycemia, unspecified] Onset: 07-17-2018 07-17-2018 Chronic Other endocrine disorders (1 source) Hypoglycemia, unspecified; Translations: [Low blood sugar] Onset: 07-02-2022 Chronic Other nutritional; endocrine; and metabolic disorders (9 sources) Simple obesity ; Translations: [Other obesity due to excess calories] Onset: 05-31-2015 05-31-2015 Chronic Other nutritional; endocrine; and metabolic disorders (3 sources) Obesity; Translations: [Obesity, unspecified] Chronic Other nutritional; endocrine; and metabolic disorders (1 source) Obesity, unspecified; Translations: [Class 1 obesity with serious comorbidity in adult, unspecified BMI, unspecified obesity type] Onset: 07-02-2022 Chronic Other upper respiratory disease (9 sources) Allergic rhinitis; Translations: [Allergic rhinitis, unspecified] Onset: 03-13-2006 03-13-2006 Chronic Past or Other Problems Problem Classification Problem Date Documented Da te Episodic/Chronic Other connective tissue disease (9 sources) Dupuytren contracture of right palm; Translations: [Palmar fascial fibromatosis [Dupuytren]] Onset: 01-20-2017 01-20-2017 Episodic Other connective tissue disease (9 sources) Pain in both feet; Translations: [Pain in right foot] Onset: 01-20-2017 01-20-2017 Episodic Other non-traumatic joint disorders (9 sources) Pain in lower limb; Translations: [Pain in unspecified knee] Onset: 03-13-2006 03-13-2006 Episodic Spondylosis; intervertebral disc disorders; other back problems (9 sources) Neck pain; Translations: [Cervicalgia] Onset: 03-13-2006 03-13-2006 Episodic Results Test Name Value Interpretation Reference Range Facil ity Vital Signs Date Time Vital Sign Value Performing Clinician Facmahesh duquey 07-02-2022 12:16-0400 Diastolic blood pressure 96 mm[Hg] Yas Murray BINDERY HELPER.INSTRUCTOR PILOT Work Phone: [facility] 07-02-2022 12:16-0400 Heart rate 87 /min Yas Murray BINDERY HELPER.INSTRUCTOR PILOT Work Phone: [facility] 07-02-2022 12:16-0400 Systolic blood pressure 166 mm[Hg] Yas Murray BINDERY HELPER.INSTRUCTOR PILOT Work Phone: [facility] 07-02-2022 12:05-0400 Body weight 94.8 kg Yas Murray BINDERY HELPER.INSTRUCTOR PILOT Work Phone: [facility] 07-02-2022 12:05-0400 Respiratory rate 16 /min Yas Murray BINDERY HELPER.INSTRUCTOR PILOT Work Phone: [facility] 05-31-2022 12:02-0500 Diastolic blood pressure 92 mm[Hg] Kristal Sullivan MD Work Phone: [facility] 05-31-2022 12:02-0500 Systolic blood pressure 136 mm[Hg] Kristal Sullivan MD Work Phone: [facility] 05-31-2022 11:45-0500 Body height 180.3 cm Kristal Sullivan MD Work Phone: [facility] 05-31-2022 11:45-0500 Body temperature 97.9 [degF] Kristal Sullivan MD Work Phone: [facility] 05-31-2022 11:45-0500 Body weight 94.8 kg Kristal Sullivan MD Work Phone: [facility] 05-31-2022 11:45-0500 Heart rate 96 /min Kristal Sullivan MD Work Phone: [facility] 05-31-2022 11:45-0500 Respiratory rate 12 /min Kristal Sullivan MD Work Phone: [facility] 05-31-2022 11:45-0500 SaO2% (BldA) [Mass fraction] 100 % Kristal Sullivan MD Work Phone: [facility] 04-26-2022 11:40-0500 Body height 180.3 cm Kristal Sullivan MD Work Phone: [facility] 04-26-2022 11:40-0500 Body temperature 99.39 [degF] Kristal Sullivan MD Work Phone: [facility] 04-26-2022 11:40-0500 Body weight 100.25 kg Kristal Sullivan MD Work Phone: [facility] 04-26-2022 11:40-0500 Diastolic blood pressure 76 mm[Hg] Kristal Sullivan MD Work Phone: [facility] 04-26-2022 11:40-0500 Heart rate 96 /min Kristal Sullivan MD Work Phone: [facility] 04-26-2022 11:40-0500 Respiratory rate 12 /min Kristal Sullivan MD Work Phone: [facility] 04-26-2022 11:40-0500 SaO2% (BldA) [Mass fraction] 99 % Kristal Sullivan MD Work Phone: [facility] 04-26-2022 11:40-0500 Systolic blood pressure 136 mm[Hg] Kristal Sullivan MD Work Phone: [facility] Encounters Encounter Date Encounter Type Care Provider Facility Start: 07-02-2022 End: 07-03-2022 ambulatory YAS MURRAY Facility:[facility] Start: 07-02-2022 End: 07-02-2022 Office outpatient visit 25 minutes Yas Murray BINDERY HELPER.INSTRUCTOR PILOT Work Phone: [facility] Procedures Date Procedure Procedure Detail Performing Clinician Start: 04-26-2022 Hemoglobin A1c/Hemoglobin.total in Blood Kristal Sullivan MD Work Phone: Start: 11-20-2018 Adult depression screening assessment Kristal Sullivan MD Work Phone: Plan of Treatment Date Care Activity Detail Author Start: 06-01-2023 ANNUAL PCP TEAM CHRONIC DISEASE VISIT ANNUAL PCP TEAM CHRONIC DISEASE VISIT [facility] Start: 06-01-2023 Hepatitis B screening URINE ALBUMIN:CREATININE RATIO [facility] Start: 06-01-2023 Hepatitis B surface antibody level LDL CHOLESTEROL [facility] Start: 04-26-2023 ANNUAL PCP TEAM CHRONIC DISEASE VISIT ANNUAL PCP TEAM CHRONIC DISEASE VISIT [facility] Start: 11-29-2022 Influenza vaccination INFLUENZA (Season Ended) [facility] Start: 10-24-2022 Hemoglobin A1c/Hemoglobin.total in Blood HBA1C [facility] Start: 05-07-2022 End: 07-07-2022 ALBUMIN/CREAT RATIO RND UR ALBUMIN/CREAT RATIO RND UR Lab Routine Type 1 diabetes mellitus with hyperosmolarity without coma (HCC) Expected: 05/07/2022, Expires: 07/07/2022 [facility] Work Phone: Immunizations Immunization Date Immunization Notes Care Provider Fa cili 01-01-2019 influenza, injectabl e, quadrivalent, contains preservative Kristal Sullivan MD Work Phone: [facility] 01-01-2019 tetanus and diphther ia toxoids, adsorbed, preservative free, for adult use (5 Lf of tetanus toxoid and 2 Lf of diphtheria toxoid) Kristal Sullivan MD Work Phone: [facility] 01-20-2017 influenza, injectabl e, quadrivalent, contains preservative Kristal Sullivan MD Work Phone: [facility] Work Phone: 12-30-2011 influenza virus vacc ine, unspecified formulation Kristal Sullivan MD Work Phone: [facility] Work Phone: 07-29-2010 pneumococcal polysaccharide vaccine, 23 valent Kristal Sullivan MD Work Phone: [facility] Work Phone: Payers Date Payer Category Payer Medicaid [employer] [id number] 2018-Present [phone] [address] [place] [address] Medicaid [id number] 2018 Medicaid [id number] 2018 Medicaid [id number] Social History Date Type Detail Facility Start: 04-26-2022 Tobacco smoking stat us TNIS Never smoked tobacco [facility] Start: 03-14-2021 End: 05-31-2022 Alcohol intake Current non-drinker of alcohol (finding) [facility] Start: 1980 Sex Assigned At Not on file [facility] Start: 04-26-2022 Tobacco use and exposure Smoke less tobacco non-user [facility] Work Phone: Start: 07-02-2022 History SDOH Alcohol Frequency 1 [facility] Start: 07-02-2022 History SDOH Alcohol Std Drinks 0 [facility] Start: 07-02-2022 History SDOH Social Connections Phone 5 [facility] Start: 07-02-2022 History SDOH Social Connections Hinduism 3 [facility] Start: 07-02-2022 History SDOH Social Connections Living 8 [facility] Start: 07-02-2022 History SDOH Transpo rt Med 2 [facility] Medical Equipment Procedure Code Equipment Code Equipment Origin al Text Equipment Identifier Dates Start: 07-24-2016 End: 07-02-2022 Goals Date Patient Goal Desired Activity /State Clinical Notes 04-26-2022 to 07-02-2022 Patient InstructionsYas Murray APRN.INSTRUCTOR PILOT - 07/02/2022 12:00 PM Cally Sullivan MD - 05/31/2022 11:55 AM ESTTelephone Encounter - Minnie Zuñiga PUBLIC FINANCE SPECIALIST - 04/30/2022 10:44 AM EST Note Date & Type Note Facility 07-02-2022 Note HNO ID: [id number] Author: Yas Murray APRN.INSTRUCTOR PILOT Service: ? Author Type: Nurse Specialist Type: Progress Notes Filed: 07/02/2022 12:55 PM Note Text: SUBJECTIVE: HEPATITIS B(1 of 3 - 3-dose series) Never done COVID-19 VACCINE(1) Never done HEPATITIS C SCREENING Never done HIV SCREENING Never done BP CONTROLLED (<130/80) Never done PNEUMOCOCCAL(2 - PCV) due on 07/30/2011 DTAP,TDAP,TD(1 - Tdap) due on 01/02/2019 DILATED RETINAL EXAM due on 09/16/2020 DIABETIC FOOT EXAM due on 02/03/2021 DEPRESSION ASSESSMENT Never done HPI Jan Gonzales is a 41 year old male. PMH significant for ACTIVE PROBLEM LIST Developmental Dyslexia Allergic Rhinitis, Cause Unspecified Type 1 Diabetes Mellitus With Hyperosmolarity Without Coma (Hcc) Pain in Joint, Lower Leg Cervicalgia Mixed Hyperlipidemia Gerd (Gastroesophageal Reflux Disease) Non Morbid Obesity Due to Excess Calories Dupuytren's Contracture of Right Hand Foot Pain, Bilateral Hypoglycemia Essential Hypertension PCP: Kristal Sullivan MD Presents today for refill of phentermine, taking for weight loss. Diet: Indiscretions, fast food Exercise: Walking only, about 6000 steps per day Weight: stable Has insulin pump. Reports low blood sugar Aba during the night on 06/28/2022. States noted that he was diaphoretic. Notes he ate something then, felt some better. EMS called. BS was 40 when checked by EMS and gave him D50 injection. ER visit: States he declined to go to ER Reid Ko MD manages DM1. Did he report this to Dr Ko: no No recent change in medication is stated. States Dexcom and insulin pumps had both stopped working when this occurred. Reports working more than usual this date, picking up tree limbs and working in the yard. He reports he skipped breakfast and lunch, only ate dinner. States has visit with Dr Ko this Friday. Taking BP medication: Missed lisinopril dose today and missed 4 of the last 5 day doses. No recent fill of coreg. states not taking, last ordered 2020 per PCP Lisinopril 40 mg dose last ordered per Reid Ko 03/2022. Review of Systems Constitutional: Negative. Objective BP 166/96 Pulse 87 Resp 16 Wt 94.8 kg (209 lb) BMI 29.15 kg/m? Physical Exam Vitals and nursing note reviewed. Constitutional: Appearance: Normal appearance. HENT: Head: Normocephalic and atraumatic. Eyes: Conjunctiva/sclera: Conjunctivae normal. Cardiovascular: Rate and Rhythm: Normal rate and regular rhythm. Heart sounds: Normal heart sounds. Pulmonary: Effort: Pulmonary effort is normal. Breath sounds: Normal breath sounds. Skin: General: Skin is warm and dry. Neurological: Mental Status: He is alert. ALLERGIES Allergen Reactions Seasonal Allergies Intolerance Medication blood sugar diagnostic (FREESTYLE LITE STRIPS) test strip Test blood sugar 10 times daily . Dx. E10.3599 E10.65, Insulin: yes MEDICAL SUPPLY Blood pressure machine carvedilol (COREG) 12.5 mg tablet Take 1 tablet by mouth twice daily. lisinopril (ZESTRIL, PRINIVIL) 40 mg tablet Take 1 tablet by mouth once daily. Nut.Tx.Gluc.Intol,Lac-Free,Soy (GLUCERNA SHAKE) liqd DRINK 1 BOTTLE (237ML) twice a day ibuprofen (MOTRIN) 800 mg tablet take 1 tablet by mouth every 8 hours with food if needed for pain cetirizine (ZYRTEC) 10 mg tablet Take 1 tablet by mouth once daily. Cholecalciferol, Vitamin D3, 125 mcg (5,000 unit) cap Take 1 capsule by mouth once daily. rosuvastatin (CRESTOR) 20 mg tablet Take 1 tablet by mouth daily at bedtime. insulin glargine (LANTUS SOLOSTAR, BASAGLAR KWIKPEN) 100 unit/mL (3 mL) Inject 80 Units subcutaneously once daily. insulin aspart U-100 (NOVOLOG FLEXPEN U-100 INSULIN) 100 unit/mL (3 mL) Take 30 units before meals Do not take if you do not eat glucose 4 gram chewable tablet Take 4 tablets by mouth as needed. Acetone, Urine, Test (KETONE URINE TEST) strp 1 Strip as directed. DX E10.65 E10.3599 Ketone Blood Test (PRECISION XTRA B-KETONE) strp Test KETONES as directed. DX: Type 1 DM - Uncontrolled E 10.65 montelukast (SINGULAIR) 10 mg tablet Take 1 tablet by mouth daily at bedtime. famotidine (PEPCID) 20 mg tablet Take 1 tablet by mouth at bedtime as needed. mupirocin (BACTROBAN) 2 % ointment Apply 1 application to affected area three times daily. alcohol swabs padm APPLY TO AFFECTED AREA FIVE TIMES DAILY Insulin Trinity, Disposable, (BD ULTRA-FINE LUCHO PEN NEEDLE) 32 gauge x ndle Use one needle for each dose. 7/day. lancets (FREESTYLE LANCETS) 28 gauge misc Test blood sugar four times daily 250.00 Zn Venqdvr-Mtbnohitelt-Lvm (AMERIGEL) gel Apply 1 application to affected area twice daily. (Patient not taking: No sig reported) sildenafil (VIAGRA) 100 mg tablet Take 0.5 tablets by mouth as needed. Take 30 to 60min before sexual activity (Patient not taking: No sig reported) PAST MEDICAL HISTORY Diagnosis Date Acute gastritis without m (more content not included)... [facility] 07-02-2022 Instructions Yas Murray APRN.CNS - 07/02/2022 12:34 PM EDT Take lisinopril every day. Take it today as soon as you can, your blood pressure is running high Stick with your diabetic diet and remain active, aim for 10,000 steps per day. Avoid fast foods documented in this encounter [facility] 07-02-2022 History of Presen t illness Narrative SUBJECTIVE: HEPATITIS B(1 of 3 - 3-dose series) Never done COVID-19 VACCINE(1) Never done HEPATITIS C SCREENING Never done HIV SCREENING Never done BP CONTROLLED (<130/80) Never done PNEUMOCOCCAL(2 - PCV) due on 07/30/2011 DTAP,TDAP,TD(1 - Tdap) due on 01/02/2019 DILATED RETINAL EXAM due on 09/16/2020 DIABETIC FOOT EXAM due on 02/03/2021 DEPRESSION ASSESSMENT Never done HPI Jan Gonzales is a 41 year old male. PMH significant for ACTIVE PROBLEM LIST Developmental Dyslexia Allergic Rhinitis, Cause Unspecified Type 1 Diabetes Mellitus With Hyperosmolarity Without Coma (Hcc) Pain in Joint, Lower Leg Cervicalgia Mixed Hyperlipidemia Gerd (Gastroesophageal Reflux Disease) Non Morbid Obesity Due to Excess Calories Dupuytren's Contracture of Right Hand Foot Pain, Bilateral Hypoglycemia Essential Hypertension PCP: Kristal Sullivan MD Presents today for refill of phentermine, taking for weight loss. Diet: Indiscretions, fast food Exercise: Walking only, about 6000 steps per day Weight: stable Has insulin pump. Reports low blood sugar Friday during the night on 06/28/2022. States noted that he was diaphoretic. Notes he ate something then, felt some better. EMS called. BS was 40 when checked by EMS and gave him D50 injection. ER visit: States he declined to go to ER Reid Ko MD manages DM1. Did he report this to Dr Ko: no No recent change in medication is stated. States Dexcom and insulin pumps had both stopped working when this occurred. Reports working more than usual this date, picking up tree limbs and working in the yard. He reports he skipped breakfast and lunch, only ate dinner. [facility] has visit with Dr Ko this Friday. Taking BP medication: Missed lisinopril dose today and missed 4 of the last 5 day doses. No recent fill of coreg. states not taking, last ordered 2020 per PCP Lisinopril 40 mg dose last ordered per Reid Ko 03/2022. Review of Systems Constitutional: Negative. Objective BP 166/96 Pulse 87 Resp 16 Wt 94.8 kg (209 lb) BMI 29.15 kg/m Physical Exam Vitals and nursing note reviewed. Constitutional: Appearance: Normal appearance. HENT: Head: Normocephalic and atraumatic. Eyes: Conjunctiva/sclera: Conjunctivae normal. Cardiovascular: Rate and Rhythm: Normal rate and regular rhythm. Heart sounds: Normal heart sounds. Pulmonary: Effort: Pulmonary effort is normal. Breath sounds: Normal breath sounds. Skin: General: Skin is warm and dry. Neurological: Mental Status: He is alert. ALLERGIES Allergen Reactions Seasonal Allergies Intolerance Medication blood sugar diagnostic (FREESTYLE LITE STRIPS) test strip Test blood sugar 10 times daily . Dx. E10.3599 E10.65, Insulin: yes MEDICAL SUPPLY Blood pressure machine carvedilol (COREG) 12.5 mg tablet Take 1 tablet by mouth twice daily. lisinopril (ZESTRIL, PRINIVIL) 40 mg tablet Take 1 tablet by mouth once daily. Nut.Tx.Gluc.Intol,Lac-Free,Soy (GLUCERNA SHAKE) liqd DRINK 1 BOTTLE (237ML) twice a day ibuprofen (MOTRIN) 800 mg tablet take 1 tablet by mouth every 8 hours with food if needed for pain cetirizine (ZYRTEC) 10 mg tablet Take 1 tablet by mouth once daily. Cholecalciferol, Vitamin D3, 125 mcg (5,000 unit) cap Take 1 capsule by mouth once daily. rosuvastatin (CRESTOR) 20 mg tablet Take 1 tablet by mouth daily at bedtime. insulin glargine (LANTUS SOLOSTAR, BASAGLAR KWIKPEN) 100 unit/mL (3 mL) Inject 80 Units subcutaneously once daily. insulin aspart U-100 (NOVOLOG FLEXPEN U-100 INSULIN) 100 unit/mL (3 mL) Take 30 units before meals Do not take if you do not eat glucose 4 gram chewable tablet Take 4 tablets by mouth as needed. Acetone, Urine, Test (KETONE URINE TEST) strp 1 Strip as directed. DX E10.65 E10.3599 Ketone Blood Test (PRECISION XTRA B-KETONE) strp Test KETONES as directed. DX: Type 1 DM - Uncontrolled E 10.65 montelukast (SINGULAIR) 10 mg tablet Take 1 tablet by mouth daily at bedtime. famotidine (PEPCID) 20 mg tablet Take 1 tablet by mouth at bedtime as needed. mupirocin (BACTROBAN) 2 % ointment Apply 1 application to affected area three times daily. alcohol swabs padm APPLY TO AFFECTED AREA FIVE TIMES DAILY Insulin Trinity, Disposable, (BD ULTRA-FINE LUCHO PEN NEEDLE) 32 gauge x 5/32 ndle Use one needle for each dose. 7/day. lancets (FREESTYLE LANCETS) 28 gauge misc Test blood sugar four times daily 250.00 Zn Nkvlgwm-Cokmdzzftcn-Eiz (AMERIGEL) gel Apply 1 application to affected area twice daily. (Patient not taking: No sig reported) sildenafil (VIAGRA) 100 mg tablet Take 0.5 tablets by mouth as needed. 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 Cervicalgia 03/13/2006 Depressive disorder, not elsewhere classified Developmental dyslexia Essential hypertension, benign Herpes zoster without mention of complication Macular edema 09/17/2019 Left Non-proliferative diabetic retinopathy, moderate, right eye (HCC) 09/17/2019 Non-proliferative diabetic retinopathy, severe, left eye (HCC) 09/17/2019 Other acquired deformity of other parts of limb Other and unspecified hyperlipidemia 03/13/2006 Other and unspecified hyperlipidemia Other B-complex deficiencies Other testicular hypofunction Pain in joint, lower leg 03/13/2006 Bret Schlatter Palpitations Proteinuria Type I (juvenile type) diabetes mellitus without mention of complication, uncontrolled 2000 Type II or unspecified type diabetes mellitus with other specified manifestations, uncontrolled Social History Tobacco Use Smoking status: Never Smokeless tobacco: Never Substance Use Topics Alcohol use: No Drug use: No ASSESSMENT/PLAN: 1. Class 1 obesity with serious comorbidity in adult, unspecified BMI, unspecified obesity type - ICD9: 278.00, ICD10: E66.9 (primary diagnosis) Currently taking phentermine for weight loss. Her weight loss at last visit but none today. Reports dietary indiscretions, going for fast food with his son who just started to drive. Reports walking at work, no additional exercise, averaging about 6000 steps per day. - PHENTERMINE 37.5 MG TABLET 2. Type 1 diabetes mellitus with other specified complication (HCC) - ICD9: 250.81, ICD10: E10.69 Reports low nighttime blood sugar on June 28, states both insulin pump and CGM had stopped working. Reports his saw that he was diaphoretic and called the squad as well as giving him something to eat. He states EMS checked blood sugar and it was 40. Reports decreased food intake and increased activity this date as well. 3. Low blood sugar - ICD9: 251.2, ICD10: E16.2 Recommend he resume lisinopril daily. Adhere to diabetic diet. Remain active with increased walking daily. Report low blood sugar to continuous improvement specialist when he sees her on Friday. Will fax note to Dr Ko. 1 month recheck BP and weight loss. Yas Murray APRN.CNS Medical Decision Making: Problems: Low: Stable chronic illness Moderate: 1+ chronic illnesses with change Risk: Moderate: Drug management Medical Decision Making Level: 4 - Moderate documented in this encounter [facility] 05-31-2022 Note HNO ID: [id number] Author: Kristal Sullivan MD Service: ? Author Type: Physician Type: Progress Notes Filed: 05/31/2022 12:41 PM Note Text: Reason for Visit Patient presents with: Follow Up: 1 month follow up-adipex Jan Gonzales is a 41 year old male who presents here today for Above Complaints. Health Maintenance HEPATITIS B(1 of 3 - 3-dose series) COVID-19 VACCINE(1) HEPATITIS C SCREENING HIV SCREENING BP CONTROLLED (<130/80) PNEUMOCOCCAL(2 - PCV) DTAP,TDAP,TD(1 - Tdap) LDL CHOLESTEROL URINE ALBUMIN:CREATININE RATIO DILATED RETINAL EXAM DIABETIC FOOT EXAM INFLUENZA(1) DEPRESSION ASSESSMENT HPI Patient is here for a refill of phentermine, he has lost around 10 pounds in the past month and is happy with the weight loss. He is due for his medication today. He has not had any episodes of hypoglycemia recently on the medication/ Bp is a little on the higher side. We will recheck it in a couple of weeks No problem-specific Assessment AND Plan notes found for this encounter. 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 Cervicalgia 03/13/2006 Depressive disorder, not elsewhere classified Developmental dyslexia Essential hypertension, benign Herpes zoster without mention of complication Macular edema 09/17/2019 Left Non-proliferative diabetic retinopathy, moderate, right eye (HCC) 09/17/2019 Non-proliferative diabetic retinopathy, severe, left eye (HCC) 09/17/2019 Other acquired deformity of other parts of limb Other and unspecified hyperlipidemia 03/13/2006 Other and unspecified hyperlipidemia Other B-complex deficiencies Other testicular hypofunction Pain in joint, lower leg 03/13/2006 Bret Schlatter Palpitations Proteinuria Type I (juvenile type) diabetes mellitus without mention of complication, uncontrolled 2000 Type II or unspecified type diabetes mellitus with other specified manifestations, uncontrolled PAST SURGICAL HISTORY Procedure Laterality Date EGD TRANSORAL BIOPSY SINGLE/MULTIPLE 10/09/11 FAMILY HISTORY Problem Relation Age of Onset Diabetes Mother Hypertension Mother Heart Mother other (skin cancer) Father Diabetes Maternal Grandfather other (skin cancer) Paternal Grandfather Diabetes Paternal Grandmother Psychiatry Brother Social History Tobacco Use Smoking status: Never Smokeless tobacco: Never Substance Use Topics Alcohol use: No Drug use: No Past medical history, appointments, medications, allergies reviewed. Pertinent Lab/Diagnostic Studies are reviewed and discussed today Current Outpatient Medications: Phentermine HCl (ADIPEX-P) 37.5 mg tablet blood sugar diagnostic (FREESTYLE LITE STRIPS) test strip MEDICAL SUPPLY carvedilol (COREG) 12.5 mg tablet lisinopril (ZESTRIL, PRINIVIL) 40 mg tablet Nut.Tx.Gluc.Intol,Lac-Free,Soy (GLUCERNA SHAKE) liqd ibuprofen (MOTRIN) 800 mg tablet cetirizine (ZYRTEC) 10 mg tablet Cholecalciferol, Vitamin D3, 125 mcg (5,000 unit) cap rosuvastatin (CRESTOR) 20 mg tablet insulin glargine (LANTUS SOLOSTAR, BASAGLAR KWIKPEN) 100 unit/mL (3 mL) insulin aspart U-100 (NOVOLOG FLEXPEN U-100 INSULIN) 100 unit/mL (3 mL) glucose 4 gram chewable tablet Acetone, Urine, Test (KETONE URINE TEST) strp Ketone Blood Test (PRECISION XTRA B-KETONE) strp montelukast (SINGULAIR) 10 mg tablet famotidine (PEPCID) 20 mg tablet mupirocin (BACTROBAN) 2 % ointment alcohol swabs padm Insulin Trinity, Disposable, (BD ULTRA-FINE LUCHO PEN NEEDLE) 32 gauge x 5/32 ndle Zn Dzrqmkj-Ddastzvnjeh-Pdu (AMERIGEL) gel lancets (FREESTYLE LANCETS) 28 gauge misc sildenafil (VIAGRA) 100 mg tablet Review of Systems CONSTITUTIONAL: No fevers, chills night sweats, unintended weight loss CARDIOVASCULAR: No chest pain, dyspnea, palpitations, orthopnea, PND, ankle edema. PULM: No dyspnea, unexplained cough. GI: No dysphagia/odynophagia, problematic reflux, constipation, diarrhea, changes in stool habits, hematochezia, melena. : No new urinary complaints, including dysuria, gross hematuria or pyuria. NEURO: No new balance problems, peripheral weakness/paresthesias or numbness of concern. Physical Exam BP 136/92 Pulse 96 Temp 36.6 ?C (97.9 ?F) Resp 12 Ht 180.3 cm (5' 11 ) Wt 94.8 kg (209 lb) SpO2 100% BMI 29.15 kg/m? General appearance: Well appearing, alert, in no acute distress, well nourished. Skin: Skin color, texture, turgor normal, no suspicious rashes or lesions Head: Normocephalic, no masses, lesions, tenderness or abnormalities Eyes: Anicteric sclera. Pupils are equally round and reactive to light. Extraocular movements are in (more content not included)... [facility] 05-31-2022 History of Presen t illness Narrative Reason for Visit Patient presents with: Follow Up: 1 month follow up-adipex Jan Tan Alexi is a 41 year old male who presents here today for Above Complaints. Health Maintenance HEPATITIS B(1 of 3 - 3-dose series) COVID-19 VACCINE(1) HEPATITIS C SCREENING HIV SCREENING BP CONTROLLED (<130/80) PNEUMOCOCCAL(2 - PCV) DTAP,TDAP,TD(1 - Tdap) LDL CHOLESTEROL URINE ALBUMIN:CREATININE RATIO DILATED RETINAL EXAM DIABETIC FOOT EXAM INFLUENZA(1) DEPRESSION ASSESSMENT HPI Patient is here for a refill of phentermine, he has lost around 10 pounds in the past month and is happy with the weight loss. He is due for his medication today. He has not had any episodes of hypoglycemia recently on the medication/ Bp is a little on the higher side. We will recheck it in a couple of weeks No problem-specific Assessment & Plan notes found for this encounter. 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 Cervicalgia 03/13/2006 Depressive disorder, not elsewhere classified Developmental dyslexia Essential hypertension, benign Herpes zoster without mention of complication Macular edema 09/17/2019 Left Non-proliferative diabetic retinopathy, moderate, right eye (HCC) 09/17/2019 Non-proliferative diabetic retinopathy, severe, left eye (HCC) 09/17/2019 Other acquired deformity of other parts of limb Other and unspecified hyperlipidemia 03/13/2006 Other and unspecified hyperlipidemia Other B-complex deficiencies Other testicular hypofunction Pain in joint, lower leg 03/13/2006 [place] Schlatter Palpitations Proteinuria Type I (juvenile type) diabetes mellitus without mention of complication, uncontrolled 2000 Type II or unspecified type diabetes mellitus with other specified manifestations, uncontrolled PAST SURGICAL HISTORY Procedure Laterality Date EGD TRANSORAL BIOPSY SINGLE/MULTIPLE 10/09/11 FAMILY HISTORY Problem Relation Age of Onset Diabetes Mother Hypertension Mother Heart Mother other (skin cancer) Father Diabetes Maternal Grandfather other (skin cancer) Paternal Grandfather Diabetes Paternal Grandmother Psychiatry Brother Social History Tobacco Use Smoking status: Never Smokeless tobacco: Never Substance Use Topics Alcohol use: No Drug use: No Past medical history, appointments, medications, allergies reviewed. Pertinent Lab/Diagnostic Studies are reviewed and discussed today Current Outpatient Medications: Phentermine HCl (ADIPEX-P) 37.5 mg tablet blood sugar diagnostic (FREESTYLE LITE STRIPS) test strip MEDICAL SUPPLY carvedilol (COREG) 12.5 mg tablet lisinopril (ZESTRIL, PRINIVIL) 40 mg tablet Nut.Tx.Gluc.Intol,Lac-Free,Soy (GLUCERNA SHAKE) liqd ibuprofen (MOTRIN) 800 mg tablet cetirizine (ZYRTEC) 10 mg tablet Cholecalciferol, Vitamin D3, 125 mcg (5,000 unit) cap rosuvastatin (CRESTOR) 20 mg tablet insulin glargine (LANTUS SOLOSTAR, BASAGLAR KWIKPEN) 100 unit/mL (3 mL) insulin aspart U-100 (NOVOLOG FLEXPEN U-100 INSULIN) 100 unit/mL (3 mL) glucose 4 gram chewable tablet Acetone, Urine, Test (KETONE URINE TEST) strp Ketone Blood Test (PRECISION XTRA B-KETONE) strp montelukast (SINGULAIR) 10 mg tablet famotidine (PEPCID) 20 mg tablet mupirocin (BACTROBAN) 2 % ointment alcohol swabs padm Insulin Trinity, Disposable, (BD ULTRA-FINE LUCHO PEN NEEDLE) 32 gauge x 5/32 ndle Zn Zzfjaqj-Euutfswanwq-Zek (AMERIGEL) gel lancets (FREESTYLE LANCETS) 28 gauge misc sildenafil (VIAGRA) 100 mg tablet Review of Systems CONSTITUTIONAL: No fevers, chills night sweats, unintended weight loss CARDIOVASCULAR: No chest pain, dyspnea, palpitations, orthopnea, PND, ankle edema. PULM: No dyspnea, unexplained cough. GI: No dysphagia/odynophagia, problematic reflux, constipation, diarrhea, changes in stool habits, hematochezia, melena. : No new urinary complaints, including dysuria, gross hematuria or pyuria. NEURO: No new balance problems, peripheral weakness/paresthesias or numbness of concern. Physical Exam BP 136/92 Pulse 96 Temp 36.6 C (97.9 F) Resp 12 Ht 180.3 cm (5' 11 ) Wt 94.8 kg (209 lb) SpO2 100% BMI 29.15 kg/m General appearance: Well appearing, alert, in no acute distress, well nourished. Skin: Skin color, texture, turgor normal, no suspicious rashes or lesions Head: Normocephalic, no masses, lesions, tenderness or abnormalities Eyes: Anicteric sclera. Pupils are equally round and reactive to light. Extraocular movements are intact. Lungs: Lungs clear to auscultation. No wheezing, rhonchi, rales Heart: RRR without murmur, gallop, or rubs. Extremities: No deformities, edema, skin discoloration, clubbing or cyanosis. Good capillary refill. ASSESSMENT/PLAN: 1. Class 1 obesity with serious comorbidity in adult, unspecified BMI, unspecified obesity type - ICD9: 278.00, ICD10: E66.9 (primary diagnosis) - PHENTERMINE 37.5 MG TABLET 2. Special screening examination for viral disease - ICD9: V73.99, ICD10: Z11.59 - HEP C AB IA W/CONF SCRN 3. Screening for HIV (human immunodeficiency virus) - ICD9: V73.89, ICD10: Z11.4 - HIV 1 2 COMBO(AG/AB),WITH REFLEX TO DIFFERENTIATION 4. Essential hypertension - ICD9: 401.9, ICD10: I10 - good control - Recommended regular aerobic exercise. - Recommend home blood pressure monitoring, to bring results in on next visit - Goal of BP <130/80 Kristal Sullivan MD documented in this encounter [facility] 05-07-2022 Note Patient Outreach (IN [facility]) JAN GONZALES ([id number]) 1980 M Date Time Provider Department 05/07/22 KRISTAL SULLIVAN During your visit today, we recorded the following information about you: Allergies As of Date: 05/07/2022 Noted Allergy Reaction SEASONAL ALLERGIES 11/17/2014 5 - Intolerance Date Reviewed: 02/09/2021 Reviewed by: Tayla Yuan LPN - Fully Assessed Visit Diagnoses:Type 1 diabetes mellitus with hyperosmolarity without coma (HCC) [E10.69, E10.65, E87.0] Mixed hyperlipidemia [E78.2] Order(s):ALBUMIN/CREAT RATIO RND UR [SQUACR] Order #: [id number] FUTURE LIPID PANEL BASIC [SQLIPB] Order #: [id number] FUTURE SCHEDULE LAB TESTING [[id number]] Order #: [id number] FUTURE Prescriptions as of 05/10/2022 - blood sugar diagnostic (FREESTYLE LITE STRIPS) test strip Test blood sugar 10 times daily . Dx. E10.3599 E10.65, Insulin: yes - MEDICAL SUPPLY Blood pressure machine - Phentermine HCl (ADIPEX-P) 37.5 mg tablet Take 1 tablet by mouth once daily for 30 days. - carvedilol (COREG) 12.5 mg tablet Take 1 tablet by mouth twice daily. - lisinopril (ZESTRIL, PRINIVIL) 40 mg tablet Take 1 tablet by mouth once daily. - Nut.Tx.Gluc.Intol,Lac-Free,Soy (GLUCERNA SHAKE) liqd DRINK 1 BOTTLE (237ML) twice a day - ibuprofen (MOTRIN) 800 mg tablet take 1 tablet by mouth every 8 hours with food if needed for pain - cetirizine (ZYRTEC) 10 mg tablet Take 1 tablet by mouth once daily. - Cholecalciferol, Vitamin D3, 125 mcg (5,000 unit) cap Take 1 capsule by mouth once daily. - rosuvastatin (CRESTOR) 20 mg tablet Take 1 tablet by mouth daily at bedtime. - insulin glargine (LANTUS SOLOSTAR, BASAGLAR KWIKPEN) 100 unit/mL (3 mL) Inject 80 Units subcutaneously once daily. - insulin aspart U-100 (NOVOLOG FLEXPEN U-100 INSULIN) 100 unit/mL (3 mL) Take 30 units before meals Do not take if you do not eat - glucose 4 gram chewable tablet Take 4 tablets by mouth as needed. - Acetone, Urine, Test (KETONE URINE TEST) strp 1 Strip as directed. DX E10.65 E10.3599 - Ketone Blood Test (PRECISION XTRA B-KETONE) strp Test KETONES as directed. DX: Type 1 DM - Uncontrolled E 10.65 - montelukast (SINGULAIR) 10 mg tablet Take 1 tablet by mouth daily at bedtime. - famotidine (PEPCID) 20 mg tablet Take 1 tablet by mouth at bedtime as needed. - mupirocin (BACTROBAN) 2 % ointment Apply 1 application to affected area three times daily. - alcohol swabs padm APPLY TO AFFECTED AREA FIVE TIMES DAILY - Insulin Trinity, Disposable, (BD ULTRA-FINE LUCHO PEN NEEDLE) 32 gauge x 5/32 ndle Use one needle for each dose. 7/day. - Zn Rbyzjnn-Eokwmbedmni-Grk (AMERIGEL) gel Apply 1 application to affected area twice daily. - lancets (FREESTYLE LANCETS) 28 gauge misc Test blood sugar four times daily 250.00 - sildenafil (VIAGRA) 100 mg tablet Take 0.5 tablets by mouth as needed. Take 30 to 60min before sexual activity Problem List As Of Date 05/07/2022 Noted Resolved DEVELOPMENTAL DYSLEXIA [F81.0] ALLERGIC RHINITIS NOS [J30.9] 03/13/2006 Type 1 diabetes mellitus with hyperosmolarity w*03/13/2006 PAIN IN JOINT, LOWER LEG [M25.569] 03/13/2006 CERVICALGIA [M54.2] 03/13/2006 Mixed hyperlipidemia [E78.2] 03/13/2006 GERD (gastroesophageal reflux disease) [K21.9] 11/17/2014 Non morbid obesity due to excess calories [E66.*05/31/2015 Dupuytren's contracture of right hand [M72.0] 01/20/2017 Foot pain, bilateral [M79.671, M79.672] 01/20/2017 Hypoglycemia [E16.2] 07/17/2018 Essential hypertension [I10] 12/01/2020 Encounter Status:Closed by [place] [place] [employer], PRODUSER on 05/10/22 [facility] 04-30-2022 Miscellaneous Notes Patient notified of below results/recommendation, verbalized understanding. Minnie Zuñiga LPN ----- Message from Kristal Sullivan MD sent at 04/29/2022 8:49 PM EST ----- Your hemoglobin is improved and almost normal thyroid is normal, kidney numbers are elevated, this could be from the parts counterman effects of diabetes. We have to keep monitoring them. Regards, Kristal Sullivan MD documented in this encounter [facility] 04-30-2022 Miscellaneous Notes Patient notified of below results, verbalized understanding. Minnie Zuñiga LPN ----- Message from Kristal Sullivan MD sent at 04/29/2022 8:46 PM EST ----- Jan, Your hemoglobin is improved and almost normal thyroid is normal, kidney numbers are elevated, Regards, Kristal Sullivan MD documented in this encounter [facility] 04-26-2022 Miscellaneous Notes noted. Tayla Yuan LPN I have sent it. I had told him in the office I would have time only in the evening to send it. Thank him for his patience Regards, Kristal Sullivan MD Patient calling and asking about the Adipex order. Patient is currently at [facility]. Please review and advise, Kitty Fang RN documented in this encounter [facility] 04-26-2022 Note HNO ID: [id number] Author: Kristal Sullivan MD Service: ? Author Type: Physician Type: Progress Notes Filed: 04/26/2022 6:06 PM Note Text: Reason for Visit Patient presents with: Follow Up: diabetes and refills Jan Gonzales is a 41 year old male who presents here today for Chronic Medical Conditions.. Health Maintenance HEPATITIS B(1 of 3 - 3-dose series) COVID-19 VACCINE(1) HEPATITIS C SCREENING HIV SCREENING BP CONTROLLED (<130/80) PNEUMOCOCCAL(2 - PCV) DTAP,TDAP,TD(1 - Tdap) LDL CHOLESTEROL URINE ALBUMIN:CREATININE RATIO DILATED RETINAL EXAM DIABETIC FOOT EXAM INFLUENZA(1) ANNUAL PCP TEAM CHRONIC DISEASE VISIT DEPRESSION ASSESSMENT HPI Diabetes Mellitus: Endo following. Saw Dr. Ko 04/18/22. Has onmipod 5 - tolerating well. Monitors sugar intermittently via device and especially if alarms or having to change pod every 3 days. It has been noted that he is in range (70-120) 68% of the time. Last A1c (04/18/22) 7.3. Todays A1c 7.2. Notes yesterday his pod had been dislodged without knowing and his blood sugar was unreadable, he attempted to inject a few rounds of insulin to find that it had been leaking on his shirt - finally once changing the pod, device was able to read blood sugar at 360. With proper insulin administration, blood sugar gradually decreased and by the time he got home it was 126. Denies any recent low spells in the past couple of weeks. Last low spell was a month ago: Was getting ready to eat dinner and administered a bolus, however had to run out to the store for his - while at the store became mildly disoriented and lightheaded to find his blood sugar was 60. Treated with an orange juice - blood sugar increased back to 120s. Diet: 1 meal a day with intermittent snacking. Poor fluid intake - plan to increase fluid intake. Follows no specific diet plan, eats out regularly with work. Not mindful of sodium, cholesterol and fat. Slowly cutting back carb intake. Eats fruits, fruits, chicken, fish, pork and beef. Trying to limit sweets and baked goods. HTN: BP stable today at 136/76. Denies checking BP at home. Plans on getting a BP machine. BP a week ago via Dr. Ko's office was 184/133 (right arm) AND 180/120 (left arm). Notes he is noncompliant with BP meds, however since seeing Dr. Ko, has tried to become more compliant with taking his meds. Lisinopril recently increased to 40mg. Tolerating well - voices no side effects. Denies chest pain, palpitations, sob, and or edema. Exercise: Recently started [employer] program. Planning on doing it 3 times per week. Sleep: Sleeps well. Averages 5-6 hours a night. Feels rested upon awakening. Stress: Denies any major stressors. No problem-specific Assessment AND Plan notes found for this encounter. 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 Cervicalgia 03/13/2006 Depressive disorder, not elsewhere classified Developmental dyslexia Essential hypertension, benign Herpes zoster without mention of complication Macular edema 09/17/2019 Left Non-proliferative diabetic retinopathy, moderate, right eye (HCC) 09/17/2019 Non-proliferative diabetic retinopathy, severe, left eye (HCC) 09/17/2019 Other acquired deformity of other parts of limb Other and unspecified hyperlipidemia 03/13/2006 Other and unspecified hyperlipidemia Other B-complex deficiencies Other testicular hypofunction Pain in joint, lower leg 03/13/2006 Bret Schlatter Palpitations Proteinuria Type I (juvenile type) diabetes mellitus without mention of complication, uncontrolled 2000 Type II or unspecified type diabetes mellitus with other specified manifestations, uncontrolled PAST SURGICAL HISTORY Procedure Laterality Date EGD TRANSORAL BIOPSY SINGLE/MULTIPLE 10/09/11 FAMILY HISTORY Problem Relation Age of Onset Diabetes Mother Hypertension Mother Heart Mother other (skin cancer) Father Diabetes Maternal Grandfather other (skin cancer) Paternal Grandfather Diabetes Paternal Grandmother Psychiatry Brother Social History Tobacco Use Smoking status: Never Smokeless tobacco: Never Substance Use Topics Alcohol use: No Drug use: No Past medical history, appointments, medications, allergies reviewed. Pertinent Lab/Diagnostic Studies are reviewed and discussed today Current Outpatient Medications: carvedilol (COREG) 12.5 mg tablet lisinopril (ZESTRIL, PRINIVIL) 40 mg tablet Nut.Tx.Gluc.Intol,Lac-Free,Soy (GLUCERNA SHAKE) liqd ibuprofen (MOTRIN) 800 mg tablet cetirizine (ZYRTEC) 10 mg tablet blood sugar diagnostic (FREESTYLE LITE STRIPS) test stri (more content not included)... [facility] 04-26-2022 History of Presen t illness Narrative Reason for Visit Patient presents with: Follow Up: diabetes and refills Jan Gonzales is a 41 year old male who presents here today for Chronic Medical Conditions.. Health Maintenance HEPATITIS B(1 of 3 - 3-dose series) COVID-19 VACCINE(1) HEPATITIS C SCREENING HIV SCREENING BP CONTROLLED (<130/80) PNEUMOCOCCAL(2 - PCV) DTAP,TDAP,TD(1 - Tdap) LDL CHOLESTEROL URINE ALBUMIN:CREATININE RATIO DILATED RETINAL EXAM DIABETIC FOOT EXAM INFLUENZA(1) ANNUAL PCP TEAM CHRONIC DISEASE VISIT DEPRESSION ASSESSMENT HPI Diabetes Mellitus: Endo following. Saw Dr. Ko 04/18/22. Has onmipod 5 - tolerating well. Monitors sugar intermittently via device and especially if alarms or having to change pod every 3 days. It has been noted that he is in range (70-120) 68% of the time. Last A1c (04/18/22) 7.3. Todays A1c 7.2. Notes yesterday his pod had been dislodged without knowing and his blood sugar was unreadable, he attempted to inject a few rounds of insulin to find that it had been leaking on his shirt - finally once changing the pod, device was able to read blood sugar at 360. With proper insulin administration, blood sugar gradually decreased and by the time he got home it was 126. Denies any recent low spells in the past couple of weeks. Last low spell was a month ago: Was getting ready to eat dinner and administered a bolus, however had to run out to the store for his - while at the store became mildly disoriented and lightheaded to find his blood sugar was 60. Treated with an orange juice - blood sugar increased back to 120s. Diet: 1 meal a day with intermittent snacking. Poor fluid intake - plan to increase fluid intake. Follows no specific diet plan, eats out regularly with work. Not mindful of sodium, cholesterol and fat. Slowly cutting back carb intake. Eats fruits, fruits, chicken, fish, pork and beef. Trying to limit sweets and baked goods. HTN: BP stable today at 136/76. Denies checking BP at home. Plans on getting a BP machine. BP a week ago via Dr. Ko's office was 184/133 (right arm) & 180/120 (left arm). Notes he is noncompliant with BP meds, however since seeing Dr. Ko, has tried to become more compliant with taking his meds. Lisinopril recently increased to 40mg. Tolerating well - voices no side effects. Denies chest pain, palpitations, sob, and or edema. Exercise: Recently started [employer] program. Planning on doing it 3 times per week. Sleep: Sleeps well. Averages 5-6 hours a night. Feels rested upon awakening. Stress: Denies any major stressors. No problem-specific Assessment & Plan notes found for this encounter. 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 Cervicalgia 03/13/2006 Depressive disorder, not elsewhere classified Developmental dyslexia Essential hypertension, benign Herpes zoster without mention of complication Macular edema 09/17/2019 Left Non-proliferative diabetic retinopathy, moderate, right eye (HCC) 09/17/2019 Non-proliferative diabetic retinopathy, severe, left eye (HCC) 09/17/2019 Other acquired deformity of other parts of limb Other and unspecified hyperlipidemia 03/13/2006 Other and unspecified hyperlipidemia Other B-complex deficiencies Other testicular hypofunction Pain in joint, lower leg 03/13/2006 [place] Schlatter Palpitations Proteinuria Type I (juvenile type) diabetes mellitus without mention of complication, uncontrolled 2000 Type II or unspecified type diabetes mellitus with other specified manifestations, uncontrolled PAST SURGICAL HISTORY Procedure Laterality Date EGD TRANSORAL BIOPSY SINGLE/MULTIPLE 10/09/11 FAMILY HISTORY Problem Relation Age of Onset Diabetes Mother Hypertension Mother Heart Mother other (skin cancer) Father Diabetes Maternal Grandfather other (skin cancer) Paternal Grandfather Diabetes Paternal Grandmother Psychiatry Brother Social History Tobacco Use Smoking status: Never Smokeless tobacco: Never Substance Use Topics Alcohol use: No Drug use: No Past medical history, appointments, medications, allergies reviewed. Pertinent Lab/Diagnostic Studies are reviewed and discussed today Current Outpatient Medications: carvedilol (COREG) 12.5 mg tablet lisinopril (ZESTRIL, PRINIVIL) 40 mg tablet Nut.Tx.Gluc.Intol,Lac-Free,Soy (GLUCERNA SHAKE) liqd ibuprofen (MOTRIN) 800 mg tablet cetirizine (ZYRTEC) 10 mg tablet blood sugar diagnostic (FREESTYLE LITE STRIPS) test strip Cholecalciferol, Vitamin D3, 125 mcg (5,000 unit) cap rosuvastatin (CRESTOR) 20 mg tablet insulin glargine (LANTUS SOLOSTAR, BASAGLAR KWIKPEN) 100 unit/mL (3 mL) insulin aspart U-100 (NOVOLOG FLEXPEN U-100 INSULIN) 100 unit/mL (3 mL) glucose 4 gram chewable tablet Acetone, Urine, Test (KETONE URINE TEST) strp Ketone Blood Test (PRECISION XTRA B-KETONE) strp montelukast (SINGULAIR) 10 mg tablet famotidine (PEPCID) 20 mg tablet mupirocin (BACTROBAN) 2 % ointment alcohol swabs padm Insulin Trinity, Disposable, (BD ULTRA-FINE LUCHO PEN NEEDLE) 32 gauge x 5/32 ndle Zn Xwmurlc-Oihdwmbpiny-Aiu (AMERIGEL) gel lancets (FREESTYLE LANCETS) 28 gauge misc sildenafil (VIAGRA) 100 mg tablet Review of Systems CONSTITUTIONAL: No fevers, night sweats, unintended weight loss. Intermittent chills with abnormal blood sugar. CARDIOVASCULAR: No chest pain, dyspnea, palpitations, orthopnea, PND, ankle edema. PULM: No dyspnea, unexplained cough. GI: No dysphagia/odynophagia, problematic reflux, constipation, diarrhea, changes in stool habits, hematochezia, melena. : No new urinary complaints, including dysuria, gross hematuria or pyuria. NEURO: No new balance problems, peripheral weakness/paresthesias or numbness of concern. Physical Exam BP 136/76 (BP Site: Right Arm, BP Position: Sitting, BP Cuff Size: Large Adult) Pulse 96 Temp 37.4 C (99.4 F) Resp 12 Ht 180.3 cm (5' 11 ) Wt 100.2 kg (221 lb) SpO2 99% BMI 30.82 kg/m General appearance: Well appearing, alert, in no acute distress, well nourished. Skin: Skin color, texture, turgor normal, no suspicious rashes or lesions Head: Normocephalic, no masses, lesions, tenderness or abnormalities Eyes: Anicteric sclera. Pupils are equally round and reactive to light. Extraocular movements are intact. Lungs: Lungs clear to auscultation. No wheezing, rhonchi, rales Heart: RRR without murmur, gallop, or rubs. Extremities: No deformities, edema, skin discoloration, clubbing or cyanosis. Good capillary refill. ASSESSMENT/PLAN: 1. Type 1 diabetes mellitus with hyperosmolarity without coma (HCC) - ICD9: 250.21, ICD10: E10.69, E10.65, E87.0 (primary diagnosis) I would need some blood work and request of records from Dr. Camilo his continuous improvement specialist - HEMOGLOBIN A1C (POC) - COMP METABOLIC PANEL - CBC + DIFF - TSH BLD 2. Gastroesophageal reflux disease without esophagitis - ICD9: 530.81, ICD10: K21.9 He has no complaints or concerns today 3. Essential hypertension - ICD9: 401.9, ICD10: I10 - good control - Recommended regular aerobic exercise. - Recommend home blood pressure monitoring, to bring results in on next visit - Goal of BP <130/80 4. Class 1 obesity with serious comorbidity in adult, unspecified BMI, unspecified obesity type - ICD9: 278.00, ICD10: E66.9 Stable - Eat well program - PHENTERMINE 37.5 MG TABLET Kristal Sullivan MD documented in this encounter [facility] Diagnosis Type 1 diabetes mellitus with hyperosmolarity without coma (HCC) Mixed hyperlipidemia [facility] Diagnosis Class 1 obesity with serious comorbidity in adult, unspecified BMI, unspecified obesity type- Primary Special screening examination for viral disease Special screening examination for unspecified viral disease Screening for HIV (human immunodeficiency virus) Special screening examination for other specified viral diseases Essential hypertension Unspecified essential hypertension documented in this encounter [facility] note* Diagnosis Class 1 obesity with serious comorbidity in adult, unspecified BMI, unspecified obesity type- Primary Type 1 diabetes mellitus with other specified complication (HCC) Low blood sugar Hypoglycemia, unspecified documented in this encounter [facility] Reason for Referral Specialty Diagnoses / Procedures Referred By Erika rodriguez Referred To Contact Kristal Sullivan MD [address] [place] [address] Referral ID Status Reason Start Date Expiration Date V isits Requested Visits Authorized [id number] Pending Review 1 1 Summary Purpose Family History No Family History Records Found Advance Directives No Advanced Directives Records Found Additional Source Comments Source Comments (unrecognize d section and content) In the event this informatio n is protected by the Federal Confidentiality of Alcohol and Drug Abuse Patient Records regulations: The Federal rules restrict any use of the information to criminally investigate or prosecute any alcohol or drug abuse patient.[facility] event this information is protected by the Federal Confidentiality of Alcohol and Drug Abuse Patient Records regulations: The Federal rules restrict any use of the information to criminally investigate or prosecute any alcohol or drug abuse patient.[facility] event this information is protected by the Federal Confidentiality of Alcohol and Drug Abuse Patient Records regulations: The Federal rules restrict any use of the information to criminally investigate or prosecute any alcohol or drug abuse patient.[facility] event this information is protected by the Federal Confidentiality of Alcohol and Drug Abuse Patient Records regulations: The Federal rules restrict any use of the information to criminally investigate or prosecute any alcohol or drug abuse patient.[facility] the event this information is protected by the Federal Confidentiality of Alcohol and Drug Abuse Patient Records regulations: The Federal rules restrict any use of the information to criminally investigate or prosecute any alcohol or drug abuse patient.[facility] the event this information is protected by the Federal Confidentiality of Alcohol and Drug Abuse Patient Records regulations: The Federal rules restrict any use of the information to criminally investigate or prosecute any alcohol or drug abuse patient.[facility] the event this information is protected by the Federal Confidentiality of Alcohol and Drug Abuse Patient Records regulations: The Federal rules restrict any use of the information to criminally investigate or prosecute any alcohol or drug abuse patient.[facility] the event this information is protected by the Federal Confidentiality of Alcohol and Drug Abuse Patient Records regulations: The Federal rules restrict any use of the information to criminally investigate or prosecute any alcohol or drug abuse patient.[facility] Care Teams (unrecognized sec tion and content) Title Specialist Relationship Specialty Start Date End Date Kristal Sullivan MD [address] [place] [place] [address] PCP - General Internal Medicine 11/17/14 Reid Ko MD [address] [place] [address] Customer Service Receptionist Endocrinology 12/08/19 Reid Ko MD [address] [place] [address] Customer Service Receptionist Endocrinology 01/11/20 [facility] 09/14/19 Title Specialist Relationship Specialty Start Date End Date Kristal Sullivan MD [address] [place] [address] PCP - General Internal Medicine 11/17/14 Reid Ko MD [address] [place] [address] Customer Service Receptionist Endocrinology 12/08/19 Reid Ko MD [address] [place] [address] Customer Service Receptionist Endocrinology 01/11/20 [facility] 09/14/19 Title Specialist Relationship Specialty Start Date End Date Kristal Sullivan MD [address] [place] [address] PCP - General Internal Medicine 11/17/14 Reid Ko MD [address] [place] [address] Customer Service Receptionist Endocrinology 12/08/19 Reid Ko MD [address] [place] [address] Customer Service Receptionist Endocrinology 01/11/20 [facility] 09/14/19 Title Specialist Relationship Specialty Start Date End Date Kristal Sullivan MD [address] [place] [address] PCP - General Internal Medicine 11/17/14 Reid Ko MD [address] [place] [address] Customer Service Receptionist Endocrinology 12/08/19 Reid Ko MD [address] [place] [address] Customer Service Receptionist Endocrinology 01/11/20 [facility] 09/14/19 Title Specialist Relationship Specialty Start Date End Date Kristal Sullivan MD [address] [place] [address] PCP - General Internal Medicine 11/17/14 Reid Ko MD [address] [place] [address] Customer Service Receptionist Endocrinology 12/08/19 Reid Ko MD [address] [place] [address] Customer Service Receptionist Endocrinology 01/11/20 [facility] 09/14/19 Reason for Visit (unrecogniz ed section and content) Reason Comments Follow Up diabetes and refills Reason Comments Results Reason Comments Follow Up 1 month follow up-ad ipex Reason Comments Weight Check Refill Adipex (unrecognized sect ion and content) No Status Records Found INFORMATION SOURCE (unrecogn ized section and content) FOR RECORDS PERTAINING TO PATIENTS WHO ARE OR HAVE BEEN ENROLLED IN A CHEMICAL DEPENDENCY/SUBSTANCEABUSE PROGRAM, SOME INFORMATION MAY BE OMITTED. This clinical summary was aggregated from multiple sources. Caution should be exercised in using it in the provision of clinical care. This summary normalizes information from multiple sources, and as a consequence, information in this document may materially change the coding, format and clinical context of patient data. In addition, data may be omitted in some cases. CLINICAL DECISIONS SHOULD BE BASED ON THE PRIMARY CLINICAL RECORDS. [facility] [employer] [facility]. provides no warranty or guarantee of the accuracy or completeness of information in this document.
[2023-05-16 18:11] LABS: ALB/GLOB Ratio 0.7 RATIO (0.9-2.4); AST(SGOT) 22 U/L (15-37); Alanine Aminotransfer ALT/SGPT 27 U/L (16-61); Albumin, Serum 2.7 g/dL (3.2-5.0); Alkaline Phosphatase 83 U/L (45-117); Anion Gap 3 (5-15); BUN 42 mg/dL (7-18); BUN/Creat Ratio 10.4 RATIO (10-20); Calcium,Total 9.1 mg/dL (8.5-10.1); Chloride 110 mmol/L (98-107); Creatinine, Serum 4.05 mg/dL (0.70-1.30); EST Glomerular Filtration Rate 17 mL/min (>60); Est Glom Filt Rate - Afr Amer 21 mL/min (>60); Globulin 3.8 g/dL (2.2-4.2); Glucose 90 mg/dL (74-106); Potassium 4.7 mmol/L (3.5-5.1); Protein, Total 6.5 g/dL (6.4-8.2); Sodium Level 139 mmol/L (136-145)
== END | disposition home or self-care (01) ==
LOC: LAB 17:04
PROVIDERS: PCP Internal Medicine; Referring Provider Nurse Practitioner Family; Visit Provider Nurse Practitioner Family
DX: E10.65 Type 1 diabetes mellitus with hyperglycemia (principal)
CPT/HCPCS: 36415; 80053; 83036

== ENCOUNTER → 2023-06-27 | Outpatient (CLI) | payer MEDICAID, SELFPAY ==
[2023-06-27 11:05] LABS: Bacteria 0 SEEN /hpf (None Seen); Mucous, Urine 0 SEEN /hpf (<or=2+); Red Blood Cells-Urine 0 SEEN /hpf (0-5)
[2023-06-27 11:23] LABS: Hematocrit 31.1 % (40-54); Hemoglobin 10.2 g/dL (13.0-16.5); Mean Corp Hgb Conc 32.8 g/dL (32-36); Mean Corpuscular Hgb 26.9 pg (27.0-32.0); Mean Corpuscular Volume 82.1 fL (80-94); Platelet Count 325 K/mm3 (150-450); RBC Distribution Width CV 13.5 % (11.6-14.6); RBC Distribution Width SD 40.1 fl (35.1-43.9); Red Blood Count 3.79 M/mm3 (4.6-6.2); White Blood Count 8.9 K/mm3 (4.4-11.0)
[2023-06-27 11:48] LABS: PTHIN 232.1 pg/mL (18.4-80.1)
[2023-06-27 11:49] LABS: BUN 37 mg/dL (7-18); BUN/Creat Ratio 8.5 RATIO (10-20); Calcium,Total 9.4 mg/dL (8.5-10.1); Chloride 115 mmol/L (98-107); Creatinine, Serum 4.35 mg/dL (0.70-1.30); EST Glomerular Filtration Rate 16 mL/min (>60); Est Glom Filt Rate - Afr Amer 19 mL/min (>60); Glucose 62 mg/dL (74-106); Phosphorus 4.5 mg/dL (2.5-4.9); Potassium 4.7 mmol/L (3.5-5.1); Sodium Level 141 mmol/L (136-145)
[2023-06-27 11:51] LABS: Vitamin D,25 Hydroxy 24.2 ng/mL
[2023-06-27 11:52] LABS: Color, Urine Straw (Yellow); Glucose, Dipstick 100 mg/dl (Normal); Ketone-Dipstick Negative (Negative); Leukocyte Esterase-Dipstick Negative /ul (Negative); Nitrite-Dipstick Negative (Negative); Occult Blood-Urine 25 /ul (Negative); Protein-Dipstick 500 mg/dl (Negative); Specific Gravity, Urine 1.015 (1.002-1.030); Urine Bilirubin Dipstick Negative (Negative); Urine Clarity Clear (Clear); Urine Urobilinogen Normal (Normal)
[2023-06-27 12:05] LABS: Squamous Epithelial Cells - UA 0-5 SEEN /hpf (0-5); White Blood Cells 0-5 SEEN /hpf (0-5)
[2023-06-30 12:08] LABS: Anti-dsDNA Ab 1 IU/mL (0-9)
[2023-06-30 15:07] LABS: Cytoplasmic Ab (C-ANCA) <1:20 titer (Neg:<1:20); PROEL- A/G Ratio 1.1 (0.7-1.7); PROEL- Albumin 3.1 g/dL (2.9-4.4); PROEL- Alpha-1 Globulin 0.3 g/dL (0.0-0.4); PROEL- Alpha-2 Globulin 1.2 g/dL (0.4-1.0); PROEL- Beta Globulin 0.8 g/dL (0.7-1.3); PROEL- Gamma Globulin 0.6 g/dL (0.4-1.8); PROEL- Globulin, Total 2.9 g/dL (2.2-3.9); PROEL-M-Spike Not Observed g/dL (Not Observed); Perinuclear Ab (P-ANCA) <1:20 titer (Neg:<1:20)
== END | disposition home or self-care (01) ==
LOC: LAB 10:52
PROVIDERS: PCP Internal Medicine; Referring Provider Internal Medicine Nephrology; Visit Provider Internal Medicine Nephrology
DX: N18.4 Chronic kidney disease, stage 4 (severe) (principal)
CPT/HCPCS: 36415; 80069; 81001; 82306; 83970; 84165; 85027; 86225; 86256

== ENCOUNTER 2023-07-01 12:52 | Inpatient (IN) | payer MEDICAID, SELFPAY ==
[2023-07-01] VITALS (8 sets, daily range): BP systolic 114–178; BP diastolic 63–93; PULSE 72–98; RESP 16–18; TEMP 36.2–37; O2SAT 92–99; BMI 32.2; BMI 31.7
--- NOTE | 2023-07-01 13:27 | EKG12_ITS ---
Test Reason : SOB Blood Pressure : / mmHG Vent. Rate : 088 BPM Atrial Rate : 088 BPM P-R Int : 156 ms QRS Dur : 084 ms QT Int : 360 ms P-R-T Axes : 022 018 055 degrees QTc Int : 435 ms Normal sinus rhythm Normal ECG Confirmed by MELISSA LACEY, DANIELLE ([id number]), script editor KEYLA MORENO ([id number]) on 07/02/2023 9:34:21 AM Referred By: Confirmed By:DANIELLE TORRES MD
--- NOTE | 2023-07-01 13:28 | EDS_ITS ---
HPI History of Present Illness Chief Complaint: Shortness of Breath Informant: patient Narrative Narrative: 42-year-old male with a history of hypertension diabetes chronic kidney disease presenting to the emergency room with dyspnea. Patient states for about 4 days he feels short of breath when he lays down flat. He has been sleeping with his head of his bed elevated. States he feels swollen in his hands face and feet. States they are not as bad now as they were last night. He sees Dr. Diaz for chronic kidney disease. He had blood work done about 4 days ago and is in the evening of that day that he started noticing his symptoms. Patient states that he has no history of heart disease or CHF. [facility] Medical History Abscess Charcot foot due to diabetes mellitus Diabetes mellitus type 1 Insulin pump titration Obesity Presence of insulin pump Type 1 diabetes mellitus Home Medications blood sugar diagnostic (FreeStyle Lite Strips) #100 ea 10/08/21 [Rx Last Taken Unknown] blood-glucose meter,continuous (Dexcom G6 Commercial Assistant) #1 ea 10/08/21 [Rx Last Taken Unknown] lancing device with lancets kit (Playdate App Delica Plus Lancing Device kit) #100 ea 11/26/21 [Rx Last Taken Unknown] pen needle, diabetic 32 gauge x 5/32 (BD Ultra-Fine Carol Pen Needle) #150 ea 02/26/22 [Rx Last Taken Unknown] alcohol swabs (BD Alcohol Swabs) 1 pad topical .4 times daily #200 ea 05/20/22 [Rx Last Taken Unknown] insulin aspart U-100 100 unit/mL subcutaneous solution (Novolog U-100 Insulin aspart) 80 unit (0.8 mL) continuous subcutaneous infusion .continuous #72 mL 12/19/22 [Rx Last Taken Unknown] insulin pump cart,automated,BT (Omnipod 5 G6 Pods (Gen 5) subcutaneous cartridg e) #30 ea 01/07/23 [Rx Last Taken Unknown] amlodipine 10 mg tablet 10 mg PO DAILY #90 tabs 05/14/23 [Rx Last Taken Unknown] blood-glucose sensor (Dexcom G6 Sensor device) #9 ea 05/14/23 [Rx Last Taken Unknown] blood-glucose transmitter (Dexcom G6 Transmitter device) #1 ea 05/14/23 [Rx Last Taken Unknown] rosuvastatin 10 mg tablet 10 mg PO DAILY #90 tabs 05/14/23 [Rx Last Taken Unknown] metoprolol succinate 25 mg tablet,extended release 24 hr 25 mg PO DAILY #30 tabs 05/29/23 [Rx Last Taken Unknown] Allergy/AdvReac Type Severity Reaction Status Date / Time No Known Allergies Allergy Verified 07/01/23 12:53 Family History Other Diabetes Social History Smoking Status: Never smoker alcohol intake: never substance use type: does not use ROS ROS ED Constitutional Constitutional ED: Denies chills, fever(s) or weight loss Eyes Eyes: Denies change in vision or diplopia ENT ENT ED: Denies ear pain, rhinorrhea or sore throat Cardiovascular Cardiovascular: Denies chest pain, orthopnea, palpitations or racing heartbeat Respiratory/Chest Respiratory/Chest: Reports dyspnea; Denies cough or orthopnea Gastrointestinal Gastrointestinal: Denies abdominal pain, diarrhea, nausea or vomiting Genitourinary Genitourinary ED: Denies dysuria, hematuria or urinary frequency Musculoskeletal Musculoskeletal: Denies arthralgias or myalgias Integumentary Denies abscess or rash Neurologic Neurologic: Denies headache(s) or weakness Psychiatric Psychiatric: Denies anxiety, depression, suicidal ideation or suicidal thoughts Endocrine Endocrinology: Denies polydipsia, polyphagia or polyuria Allergic/Immunologic Allergic/Immunologic ED: Denies mouth swelling, tongue swelling or urticaria EXAM Physical Exam Const Vital Signs: 07/01/23 12:53 07/01/23 12:52 07/01/23 13:21 Temperature 97.2 F L Temperature Source Temporal Pulse Rate 98 96 Respiratory Rate 16 16 Respiratory Effort Normal Blood Pressure 178/91 H 174/93 H Blood Pressure Mean 120 120 Pulse Ox 98 99 Oxygen Delivery Method Room Air Room Air Room Air 07/01/23 14:52 07/01/23 16:00 Temperature Temperature Source Pulse Rate 72 94 Respiratory Rate 18 18 Respiratory Effort Blood Pressure 114/63 166/92 H Blood Pressure Mean 80 116 Pulse Ox 92 93 Oxygen Delivery Method Room Air Room Air Positive well nourished, well developed and obese General Appearance ED: well developed Nutritional Appearance: obese HEENT Reports normocephalic, head/scalp atraumatic and moist mucous membranes Eyes PERRL and EOMs intact bilaterally Neck no lymphadenopathy, supple and no JVD Resp normal respiratory effort and clear to auscultation bilaterally Cardio regular rate, regular rhythm and no murmurs GI normal to inspection, nondistended, normoactive bowel sounds and non-tender Palpation: soft Back/Spine no CVA tenderness and normal ROM Extremity normal to inspection General Extremety ED: Negative for edema General Extremity: Negative for edema Neuro oriented x3 and CN's II-XII intact bilaterally Sensorium / Orientation: alert Motor Exam: strength 5/5 throughout Psych mental status grossly normal Mood & Affect: Negative for depressed or tearful Skin no rashes or lesions noted and no wounds MDM MDM MDM Narrative Medical decision making narrative: Laying down flat the patient's oxygen level is about 81% and he is dyspneic. Ambulation he also becomes hypoxic and dyspneic. Chest x-ray shows some mild vascular congestion. White count 10.9 with a hemoglobin of 9.9. Platelet count of 329. Creatinine 4.68 troponin is 44 glucose 285 CO2 of 20 anion gap is 7 potassium 4.8.. EKG is a normal sinus rhythm. I spoke with the patient's [facility] hrologist. History & Record Review Discussion w/independent historian: Patient Additional record(s) reviewed:: Prior labs Lab Data Attestation: I reviewed the patient's lab results. Labs: Laboratory Results - last 24 hr 07/01/23 13:14 WBC 10.9 RBC 3.64 L Hgb 9.9 L Hct 30.0 L MCV 82.4 MCH 27.2 MCHC 33.0 RDW Std Deviation 40.4 RDW Coeff of Marcella 13.4 Plt Count 329 MPV 9.3 Immature Gran % (Auto) 0.300 Neut % (Auto) 77.8 H Lymph % (Auto) 11.7 L Reagan % (Auto) 8.3 Eos % (Auto) 1.3 Baso % (Auto) 0.6 Absolute Neuts (auto) 8.5 H Absolute Lymphs (auto) 1.27 Nucleated RBC % 0 Sodium 135 L Potassium 4.8 Chloride 108 H Carbon Dioxide 20.0 L Anion Gap 7 BUN 53 H Creatinine 4.68 H Estim Creat Clear Calc 25.85 Est GFR (MDRD) Af Amer 18 L Est GFR (MDRD) Non-Af 15 L BUN/Creatinine Ratio 11.3 Glucose 285 H Calcium 9.2 Phosphorus 4.2 Magnesium 2.1 Troponin I High Sens 44 Radiography Diagnostic Testing: Clinical Impression(s) from Imaging Studies Chest X-Ray 07/01/23 13:30 IMPRESSION: Findings suggestive of mild degree of CHF with bibasilar atelectasis. Electronically Signed: Neeraj Brown MD at 13:41 EDT , EKG Initial EKG: Attestation: I personally reviewed and interpreted this EKG as follows: Comments: Normal sinus rhythm ventricular rate of 88 bpm Management Discussion w/another healthcare provider: Hospitalist (Dr. Koehler) and [employer] Floor Layer (Nephrology blocking machine operator second) Discharge Plan Dx/Rx/DC Orders Clinical Impression: DM type 1 (diabetes mellitus, type 1), Obesity, Hypertension, CKD (chronic kidney disease), Volume overload Disposition Disposition: Acute Care [facility]
--- NOTE | 2023-07-01 13:30 | RAD_ITS ---
STUDY: X-RAY CHEST REASON FOR EXAM: Male, 42 years old. Dyspnea TECHNIQUE: Single AP portable view of the chest. COMPARISON: None. FINDINGS: There is evidence of vascular congestion and mild degree of CHF with bibasilar atelectasis. Blunting of the costophrenic angles bilaterally. There is borderline cardiomegaly. Normal mediastinum and yamini. Normal visualized pulmonary arteries. Normal visualized aortic arch and descending thoracic aorta. Normal visualized thoracic spine. Normal visualized ribs, clavicles, and shoulders. There is no demonstrated abnormality of the visualized soft tissue structures of the upper abdomen. RAD/Chest 1 View (Portable) IMPRESSION: Findings suggestive of mild degree of CHF with bibasilar atelectasis. Electronically Signed: Neeraj Brown MD at 13:41 EDT ,
[2023-07-01 13:44] LABS: Absolute Lymphocyte Count 1.27 X10^3/uL (0.83-4.51); Absolute Neutrophil Count 8.5 X10^3/uL (2.0-7.7); Basophil# 0.06 X10^3/uL; Basophil% 0.6 % (0-1); Eosinophil# 0.14 X10^3/uL; Eosinophils% 1.3 % (0-5); Hemoglobin 9.9 g/dL (13.0-16.5); Lymphocyte # 1.27 X10^3/ul (0.83-4.51); Lymphocyte % 11.7 % (19-41); Mean Corpuscular Hgb 27.2 pg (27.0-32.0); Mean Corpuscular Volume 82.4 fL (80-94); Mean Platelet Vol. 9.3 fl (6.2-12.0); Monocyte% 8.3 % (0-10); NRBC Flagged by Analyzer 0 % (0-5); Neutrophil # 8.45 X10^3/uL (2.7-7.7); Neutrophil % 77.8 % (47-70); Platelet Count 329 K/mm3 (150-450); RBC Distribution Width CV 13.4 % (11.6-14.6); RBC Distribution Width SD 40.4 fl (35.1-43.9); Red Blood Count 3.64 M/mm3 (4.6-6.2); White Blood Count 10.9 K/mm3 (4.4-11.0)
[2023-07-01 14:00] LABS: Anion Gap 7 (5-15); BUN 53 mg/dL (7-18); BUN/Creat Ratio 11.3 RATIO (10-20); Calcium,Total 9.2 mg/dL (8.5-10.1); Chloride 108 mmol/L (98-107); Creatinine, Serum 4.68 mg/dL (0.70-1.30); EST Glomerular Filtration Rate 15 mL/min (>60); Est Glom Filt Rate - Afr Amer 18 mL/min (>60); Estimated Creatinine Clearance 25.85 ml/min; Glucose 285 mg/dL (74-106); Potassium 4.8 mmol/L (3.5-5.1); Sodium Level 135 mmol/L (136-145); Troponin-I HS 44 pg/mL (3.0-78.0)
--- NOTE | 2023-07-01 14:37 | ED.RN ---
Pt dropped to 82% while laying down flat. Pt states i feel like I can't breath. Pt sat upright, sp02 came up to 94%. notified.
[2023-07-01 15:09] LABS: Magnesium 2.1 mg/dL (1.6-2.6); Phosphorus 4.2 mg/dL (2.5-4.9)
--- NOTE | 2023-07-01 16:02 | NURSING ---
[address] [place]PT[place] [address] HINDS
--- NOTE | 2023-07-01 16:23 | NURSING ---
MED SURG HAYLEY CKD, HYPOXIA, VOLUME OVERLOAD
--- NOTE | 2023-07-01 18:03 | HP.PCM.HOS_ITS ---
HPI - General General Date of Admission: 07/01/23 Date of Service: 07/01/23 Chief Complaint: Shortness of breath, exertional dyspnea and generalized swelling for about 3 days HPI Narrative LAURIE GONZALES, is a 42 M with history of hypertension type 1 diabetes mellitus and CKD who follows Dr. Diaz came to ED for shortness of breath on exertion, orthopnea, generalized swelling of feet and hand and facial swelling gradually worsening for 3 days. Patient is states he gets short of breath on laying flat but feels better in semierect position. He was diagnosed CKD about 3 to 4 months ago but was doing well until 3 days ago. Denies chest pain pressure or tightness. No fever or chills. In ED his creatinine was found to be high 4.68 with BUN 53 which was significantly higher than his baseline and admitted. Patient pulse ox also diana ps to 80% on laying down and in the 80s on walking. Vitals labs and imaging reviewed and discussed in detail in assessment plan [facility] Medical History Abscess Charcot foot due to diabetes mellitus Diabetes mellitus type 1 Insulin pump titration Obesity Presence of insulin pump Type 1 diabetes mellitus Home Medications blood sugar diagnostic (FreeStyle Lite Strips) #100 ea 10/08/21 [Rx Last Taken Unknown] blood-glucose meter,continuous (Dexcom G6 Environmental Web Crawler) #1 ea 10/08/21 [Rx Last Taken Unknown] lancing device with lancets kit (OneTouch Delica Plus Lancing Device kit) #100 ea 11/26/21 [Rx Last Taken Unknown] pen needle, diabetic 32 gauge x 5/32 (BD Ultra-Fine Carol Pen Needle) #150 ea 02/26/22 [Rx Last Taken Unknown] alcohol swabs (BD Alcohol Swabs) 1 pad topical .4 times daily #200 ea 05/20/22 [Rx Last Taken Unknown] insulin aspart U-100 100 unit/mL subcutaneous solution (Novolog U-100 Insulin aspart) 80 unit (0.8 mL) continuous subcutaneous infusion .continuous #72 mL 12/19/22 [Rx Last Taken Unknown] insulin pump cart,automated,BT (Omnipod 5 G6 Pods (Gen 5) subcutaneous cartridge) #30 ea 01/07/23 [Rx Last Taken Unknown] amlodipine 10 mg tablet 10 mg PO DAILY #90 tabs 05/14/23 [Rx Last Taken Unknown] blood-glucose sensor (Dexcom G6 Sensor device) #9 ea 05/14/23 [Rx Last Taken Unknown] blood-glucose transmitter (Dexcom G6 Transmitter device) #1 ea 05/14/23 [Rx Last Taken Unknown] rosuvastatin 10 mg tablet 10 mg PO DAILY #90 tabs 05/14/23 [Rx Last Taken Unknown] metoprolol succinate 25 mg tablet,extended release 24 hr 25 mg PO DAILY #30 tabs 05/29/23 [Rx Last Taken Unknown] Allergy/AdvReac Type Severity Reaction Status Date / Time No Known Allergies Allergy Verified 07/01/23 12:53 Family History Other Diabetes Social History Smoking Status: Never smoker alcohol intake: never substance use type: does not use ROS ROS Narrative Constitutional: Reports fatigue and weakness. No fever. HEENT: Reports systems reviewed and no addt'l complaints, except as documented Respiratory/Chest: As described in HPI CVS: No chest pressure or tightness Gastrointestinal: Loss of appetite. Denies coffee ground emesis, hematemesis or vomiting Genitourinary: Denies burning urination or new urinary tract symptoms. Denies oliguria or decrease in frequency of urination Musculoskeletal: Denies acute joint pain or limited range of motion. No acute injury Neurologic: Denies seizure-like symptoms. skin: No ulcer. No rash Endocrinology: Reports systems reviewed and no addt'l complaints, except as documented Hematologic/Lymphatic: Reports systems reviewed and no addt'l complaints, except as documented Rest 14 ROS are negative except as mentioned in HPI Vital Signs Vital Signs Vital Signs: 07/01/23 12:53 07/01/23 12:52 07/01/23 13:21 Temperature 97.2 F L Temperature Source Temporal Pulse Rate 98 96 Respiratory Rate 16 16 Respiratory Effort Normal Blood Pressure 178/91 H 174/93 H Blood Pressure Mean 120 120 Pulse Ox 98 99 Oxygen Delivery Method Room Air Room Air Room Air 07/01/23 14:52 07/01/23 16:00 Temperature Temperature Source Pulse Rate 72 94 Respiratory Rate 18 18 Respiratory Effort Blood Pressure 114/63 166/92 H Blood Pressure Mean 80 116 Pulse Ox 92 93 Oxygen Delivery Method Room Air Room Air Weight Weight: 231 lb 0.711 oz Body Mass Index (BMI) 32.2 Physical Exam Narrative General: Alert, Oriented x3, Cooperative HEENT: Atraumatic, PERRLA, EOMI, Normocephalic Oral: No Gingival or Mucosal Lesions/ Ulcerations Neck: Supple, No JVD, Negative Carotid Bruits Chest wall/Lungs: Air entry diminished in bilateral lung bases. No crepitation/rhonchi/wheezing Cardiovascular: Regular rate, Regular Rhythm, Normal S1, Normal S2, No M/G/R Abdomen: Bowel Sounds Present, Soft, Non Tender, Non-Distended : No dysuria. No renal angle tenderness. No suprapubic tenderness. No oliguria/anuria. Extremities: Pitting edema over lower legs, hands and facial puffiness. Capillary Refill Less than 3 Seconds Skin: No rashes, No breakdown Musculoskeletal: No Tenderness to Palpation of Joints or Extremities. ROM intact. Neurological: Cranial nerves II-XII grossly intact, DTR 2+/4. No acute focal neurological deficit. Psych/Mental Status: Normal Affect, Appropriate. Results Lab / Micro Data 07/01/23 13:14 07/01/23 13:14 Labs: Laboratory Results - last 24 hr 07/01/23 13:14: WBC 10.9, RBC 3.64 L, Hgb 9.9 L, Hct 30.0 L, MCV 82.4, MCH 27.2, MCHC 33.0, RDW Std Deviation 40.4, RDW Coeff of Marcella 13.4, Plt Count 329, MPV 9.3, Immature Gran % (Auto) 0.300, Neut % (Auto) 77.8 H, Lymph % (Auto) 11.7 L, Montour % (Auto) 8.3, Eos % (Auto) 1.3, Baso % (Auto) 0.6, Absolute Neuts (auto) 8.5 H, Absolute Lymphs (auto) 1.27, Nucleated RBC % 0, Sodium 135 L, Potassium 4.8, Chloride 108 H, Carbon Dioxide 20.0 L, Anion Gap 7, BUN 53 H, Creatinine 4. 68 H, Estim Creat Clear Calc 25.85, Est GFR (MDRD) Af Amer 18 L, Est GFR (MDRD) Non-Af 15 L, BUN/Creatinine Ratio 11.3, Glucose 285 H, Calcium 9.2, Phosphorus 4.2, Magnesium 2.1, Troponin I High Sens 44 Imaging Radiology Impression Chest X-Ray 07/01/23 13:30 IMPRESSION: Findings suggestive of mild degree of CHF with bibasilar atelectasis. Electronically Signed: Neeraj Brown MD at 13:41 EDT , Assessment & Plan Assessment/Plan (1) Dyspnea on exertion: (2) CKD (chronic kidney disease): QUALIFIERS: Chronic kidney disease stage: stage 3 (moderate) Chronic kidney disease stage 3 subtype: stage 3a (GFR 45-59) Qualified Code(s): N18.31 - Chronic kidney disease, stage 3a (3) Acute kidney injury: PLAN: Plan This is a 42-year-old gentleman being admitted to for evaluation of dyspnea on exertion/orthopnea and ANN on CKD 1. 1. Exertional dyspnea/orthopnea, clinical diagnosis of CHF exacerbation: Patient is being admitted in PCU. Chest x-ray portable individually reviewed and shows increased interstitial edema/vascular congestion and bibasilar atelectasis. Blunting of bilateral CP angles. No prior echo in our system. Patient is started on diuretic furosemide 40 mg twice daily and titrate accordingly. 2D echo ordered. Heart failure core measures including intake and output, fluid restriction less than 1500 mL, daily weight monitoring, kidney and electrolytes monitoring. 2. ANN on CKD stage 4: Patient creatinine has been elevated in the past intermittently going back in 2015 consistent with ANN. Recently last normal was in March?August 2018, 0.99?1.3 but since November 2021 it is elevated 1.35 and progressively getting worse to current 4.68. BUN 53 with BUN/creatinine ratio 11.3 suggestive it is not prerenal/fluid deficient. Started on diuretic. Patient denies history of urine retention or obstruction. Last CT abdomen in November 2019 which shows normal retroperitoneum and kidneys. Normal urinary bladder. Kidneys and bladder ultrasound ordered. Hand Glass Cutter consulted 3. Type 1 diabetes mellitus with history of diabetic retinopathy: From medical records since patient follows pad extractor tender Kendra Pierce. On insulin pump. If insulin pump functional use patient's insulin pump otherwise intermittent subcutaneous insulin injection with Accu-Cheks before meals and at bedtime and cover with milk sliding scale. 4. Hypertension: Blood pressure is uncontrolled in ED. Monitor BP and adjust antihypertensive medications. 5. Chronic anemia: Hemoglobin 9.9/30%. Platelet count normal DVT prophylaxis moderate risk: Heparin 5000 units subcutaneous every 12 hourly. Living will/advanced directive/end of life care: Patient does not have living will or advanced directive. Patient does not have dilated power of felt cementer for health after discussion of benefits/risks procedures involved with full code, DNR CC arrest and DNR CC, the patient opted for full code. Patient does want artificial life support including intubation, tube feed, ventilator and/chest compression, central venous catheter, vasopressor and DC shock if needed Total time spent in [id number] encounter in discussion of advanced directive 17 minutes. Laboratory Results 07/01/23 13:14: WBC 10.9, RBC 3.64 L, Hgb 9.9 L, Hct 30.0 L, MCV 82.4, MCH 27.2, MCHC 33.0, RDW Std Deviation 40.4, RDW Coeff of Marcella 13.4, Plt Count 329, MPV 9.3, Immature Gran % (Auto) 0.300, Neut % (Auto) 77.8 H, Lymph % (Auto) 11.7 L, Montour % (Auto) 8.3, Eos % (Auto) 1.3, Baso % (Auto) 0.6, Absolute Neuts (auto) 8.5 H, Absolute Lymphs (auto) 1.27, Nucleated RBC % 0, Sodium 135 L, Potassium 4.8, Chloride 108 H, Carbon Dioxide 20.0 L, Anion Gap 7, BUN 53 H, Creatinine 4.68 H, Estim Creat Clear Calc 25.85, Est GFR (MDRD) Af Amer 18 L, Est GFR (MDRD) Non-Af 15 L, BUN/Creatinine Ratio 11.3, Glucose 285 H, Calcium 9.2, Phosphorus 4.2, Magnesium 2.1, Troponin I High Sens 44 Clinical Impression(s) from Imaging Studies Chest X-Ray 07/01/23 13:30 IMPRESSION: Findings suggestive of mild degree of CHF with bibasilar atelectasis. Electronically Signed: Neeraj Brown MD at 13:41 EDT , Charges/Coding Visit Charges Inpatient E&M: 72463 Init Hosp L3 Procedures Hospitalists Procedures: 21330 Advncd Care Plan 30 Min
[2023-07-01] MEDS: Furosemide 40 MG/4 ML Vial IV (18:55)
[2023-07-01 21:01] LABS: Troponin-I HS 47 pg/mL (3.0-78.0)
[2023-07-01] MEDS: Heparin Injection (Vial) 5,000 UNIT/ML VIAL 5000 UNIT SC (21:11)
--- NOTE | 2023-07-01 21:18 | NURSING ---
pt's blood sugar reading at 2115 was 114 using pt's glucose monitor
[2023-07-01 21:20] LABS: Bacteria 0 SEEN /hpf (None Seen); Mucous, Urine 0 SEEN /hpf (<or=2+); Squamous Epithelial Cells - UA 0 SEEN /hpf (0-5); White Blood Cells 0 SEEN /hpf (0-5)
[2023-07-01 21:24] LABS: Color, Urine Straw (Yellow); Glucose, Dipstick Normal (Normal); Ketone-Dipstick Negative (Negative); Leukocyte Esterase-Dipstick Negative /ul (Negative); Nitrite-Dipstick Negative (Negative); Occult Blood-Urine 25 /ul (Negative); Protein-Dipstick 100 mg/dl (Negative); Urine Bilirubin Dipstick Negative (Negative); Urine Clarity Clear (Clear); Urine Urobilinogen Normal (Normal)
[2023-07-01 21:30] LABS: Red Blood Cells-Urine 0-5 SEEN /hpf (0-5)
[2023-07-01 22:25] LABS: Troponin-I HS 48 pg/mL (3.0-78.0)
[2023-07-02 02:00] VITALS: BP 154/98; PULSE 93; RESP 18; TEMP 37.1; O2SAT 92
[2023-07-02 02:20] LABS: Absolute Lymphocyte Count 1.38 X10^3/uL (0.83-4.51); Basophil# 0.08 X10^3/uL; Basophil% 0.8 % (0-1); Eosinophil# 0.28 X10^3/uL; Eosinophils% 2.9 % (0-5); Hematocrit 27.2 % (40-54); Lymphocyte # 1.38 X10^3/ul (0.83-4.51); Lymphocyte % 14.4 % (19-41); Mean Corp Hgb Conc 33.1 g/dL (32-36); Mean Corpuscular Hgb 26.7 pg (27.0-32.0); Mean Corpuscular Volume 80.7 fL (80-94); Monocyte# 0.82 X10^3/uL; Monocyte% 8.6 % (0-10); NRBC Flagged by Analyzer 0 % (0-5); Neutrophil # 6.99 X10^3/uL (2.7-7.7); Neutrophil % 72.9 % (47-70); Platelet Count 293 K/mm3 (150-450); RBC Distribution Width CV 13.5 % (11.6-14.6); RBC Distribution Width SD 39.6 fl (35.1-43.9); Red Blood Count 3.37 M/mm3 (4.6-6.2); White Blood Count 9.6 K/mm3 (4.4-11.0)
[2023-07-02 02:49] LABS: Troponin-I HS 49 pg/mL (3.0-78.0)
[2023-07-02 03:18] LABS: Anion Gap 7 (5-15); BUN 50 mg/dL (7-18); BUN/Creat Ratio 11.1 RATIO (10-20); Calcium,Total 9.1 mg/dL (8.5-10.1); Chloride 112 mmol/L (98-107); Cholesterol 170 mg/dL (200); EST Glomerular Filtration Rate 15 mL/min (>60); Est Glom Filt Rate - Afr Amer 19 mL/min (>60); Estimated Creatinine Clearance 26.68 ml/min; Glucose 151 mg/dL (74-106); High Density Lipoprotein 58 mg/dL; Potassium 4.1 mmol/L (3.5-5.1); Sodium Level 141 mmol/L (136-145); Thyroid Stim Hormone (TSH) 3.33 uIU/mL (0.358-3.74); Triglycerides 171 mg/dL; Very Low Density Lipoprotein 34 mg/dL (5-40)
--- NOTE | 2023-07-02 05:55 | ECHOD_ITS ---
Reason For Study: DYSPNEA/SOB Procedure This was a 2D Doppler, Color Flow transthoracic echocardiogram. Exam performed portable in ICU/CCU. Left Ventricle Normal LV size. Left ventricular systolic function is normal. The estimated ejection fraction is 55 %. Normal diastology for age. No regional wall motion abnormalities noted. Right Ventricle Normal RV size. Normal systolic function. Mitral Valve Normal mitral valve. Tricuspid Valve Normal tricuspid valve. Pulmonic Valve The pulmonic valve is not well visualized. Great Vessels Normal aortic root. The pulmonary artery is normal size. Normal inferior vena cava. Pericardium/Pleural No pericardial effusion. MMode/2D Measurements & Calculations LVIDd: 4.9 cm IVSd: 1.0 cm Ao root diam: 3.0 cm LVIDs: 3.1 cm LVPWd: 1.0 cm RVDd: 3.6 cm FS: 37.1 % LAV(MOD-bp): 43.9 ml LVAd ap4: 31.1 cm2 LVAd ap2: 26.6 cm2 LAV(MOD-bp) Indexed: 19.7 ml/m2 LVLd ap4: 8.9 cm LVLd ap2: 9.1 cm LAV(MOD-sp2): 46.3 ml EDV(MOD-sp4): 89.5 ml EDV(MOD-sp2): 65.9 ml LAV(MOD-sp4): 39.0 ml EDV(sp4-el): 92.2 ml EDV(sp2-el): 66.5 ml LVAs ap4: 19.1 cm2 LVAs ap2: 15.3 cm2 LVLs ap4: 7.9 cm LVLs ap2: 7.3 cm ESV(MOD-sp4): 38.4 ml ESV(MOD-sp2): 27.7 ml ESV(sp4-el): 39.0 ml ESV(sp2-el): 27.1 ml EF(MOD-sp4): 57.1 % EF(MOD-sp2): 57.9 % EF(sp4-el): 57.7 % SV(MOD-sp4): 51.1 ml SV(MOD-sp2): 38.2 ml SV(sp4-el): 53.3 ml LA A4 area: 15.3 cm2 LA dimension(2D): 4.0 cm RA A4 area: 15.9 cm2 TAPSE: 2.1 cm Time Measurements MV dec time: 0.19 sec Doppler Measurements & Calculations MV E max javed: 119.9 cm/sec Lat Peak E' Javed: 11.3 cm/sec Med Peak E' Javed: 8.5 cm/sec MV A max javed: 68.5 cm/sec E/E' lat: 10.6 E/E' med: 14.1 MV E/A: 1.8 MV V2 max: 128.6 cm/sec Ao V2 max: 134.7 cm/sec LV V1 max: 112.9 cm/sec MV max P.6 mmHg Ao max P.3 mmHg LV V1 max P.1 mmHg MV V2 mean: 70.4 cm/sec Ao V2 mean: 94.5 cm/sec LV V1 mean P.8 mmHg MV mean P.3 mmHg Ao mean P.0 mmHg LV V1 mean: 79.8 cm/sec MV V2 VTI: 24.1 cm Ao V2 VTI: 28.6 cm LV V1 VTI: 23.4 cm AV (velocity ratio): 0.82 PA V2 max: 92.9 cm/sec PA V2 mean: 72.2 cm/sec PI dec slope: 884.2 cm/sec2 ECHO/Echo Complete Interpretation Summary Normal LV size. Left ventricular systolic function is normal. The estimated ejection fraction is 55 %. Normal diastology for age. Ordering Physician: Louis Koehler Referring Physician: Kristal Luke Performed By: Anupama Morin, HUNTER, RVT
[2023-07-02 08:41] VITALS: BP 175/98; PULSE 96
[2023-07-02] MEDS: Metoprolol(XL)Succ 25 MG Tablet PO (08:41)
[2023-07-02] MEDS: Atorvastatin Calcium 20 MG Tablet PO (08:43)
[2023-07-02] MEDS: Furosemide 40 MG/4 ML Vial IV ×2 (08:46→17:27)
[2023-07-02] MEDS: Heparin Injection (Vial) 5,000 UNIT/ML VIAL 5000 UNIT SC ×2 (08:46→22:06)
[2023-07-02 09:27] VITALS: O2SAT 99
--- NOTE | 2023-07-02 09:46 | CASEMGMT ---
KANDACE HAYNES Assessment: Face to Face with pt for initial transition planning/care coordination assessment. KANDACE HAYNES introduced self and role at [facility], pt voices understanding and consents to assessment. Pt is A&O x4 and answers all questions appropriately at this time. Pt lying in bed on RA in no distress. Care providers, pharmacy, and demographics verified/updated. Admitting Dx: dyspnea on exertion, orthopnea, ANN on CKD PCP:Marly Specialists:lea Ko; jinny Diaz Preferred Pharmacy: [facility] Insurance: [facility] Prescription Benefit: yes LNOK: Ira Truong, ; Page Truong, mother Living Arrangements: Pt lives with and 3 children in a two story home with 15 steps to enter. Pt reports he is I in ADL's and denies concerns at home. Transportation: Pt drives self and denies concerns with transportation. DME:Dexcom CGM- pt reports sufficient sensors and supplies; BGM as back up in his car with sufficient strips and lancets, omnipod insulin pump with sufficient pods HHC/SNF: Denies hx of Pt states no concerns with going home at time of dc. Pt states no further concerns/needs. CM to follow. Advised pt to ask CM if any further question/concerns/needs arise, voices understanding. Pt Goal: Home Plan: Home César JERONIMO CM
[2023-07-02 10:00] VITALS: BP 175/98; PULSE 93; RESP 16; TEMP 36.8; O2SAT 91
--- NOTE | 2023-07-02 13:38 | PN_ITS ---
Subjective Subjective Patient seen and examined. He was comfortably eating breakfast. He had no complaints. Review of systems otherwise negative. He is on room air. Objective Data Objective Data Vital Signs: Vital Signs Temp Pulse Resp BP Pulse Ox O2 Del Method 98.2 F 93 16 175/98 H 91 Room Air 07/02/23 10:00 07/02/23 10:00 07/02/23 10:00 07/02/23 10:00 07/02/23 10:00 07/02/23 10:00 Oxygen Delivery Method Room Air Weight: 227 lb 7.003 oz Body Mass Index (BMI) 31.7 Intake & Output: Intake and Output for Last 24 Hours 06/30/23 07/01/23 07/02/23 23:59 23:59 23:59 Intake Total 460 / 460 Output Total 950 / 950 1800 / 1800 Balance -950 / -950 -1340 / -1340 Lab / Micro Data 07/02/23 02:10 07/02/23 02:10 Labs: Laboratory Results - last 24 hr 07/01/23 13:14: WBC 10.9, RBC 3.64 L, Hgb 9.9 L, Hct 30.0 L, MCV 82.4, MCH 27.2, MCHC 33.0, RDW Std Deviation 40.4, RDW Coeff of Marcella 13.4, Plt Count 329, MPV 9.3, Immature Gran % (Auto) 0.300, Neut % (Auto) 77.8 H, Lymph % (Auto) 11.7 L, Wallace % (Auto) 8.3, Eos % (Auto) 1.3, Baso % (Auto) 0.6, Absolute Neuts (auto) 8.5 H, Absolute Lymphs (auto) 1.27, Nucleated RBC % 0, Sodium 135 L, Potassium 4.8, Chloride 108 H, Carbon Dioxide 20.0 L, Anion Gap 7, BUN 53 H, Creatinine 4.68 H, Estim Creat Clear Calc 25.85, Est GFR (MDRD) Af Amer 18 L, Est GFR (MDRD) Non-Af 15 L, BUN/Creatinine Ratio 11.3, Glucose 285 H, Calcium 9.2, Phosphorus 4.2, Magnesium 2.1, Troponin I High Sens 44 07/01/23 20:00: Troponin I High Sens 47 07/01/23 21:00: Urine Color Straw, Urine Clarity Clear, Urine pH 6.0, Ur Specific Jefferson 1.010, Urine Protein 100 H, Urine Glucose (UA) Normal, Urine Ketones Negative, Urine Occult Blood 25 H, Urine Nitrite Negative, Urine Bilirubin Negative, Urine Urobilinogen Normal, Ur Leukocyte Esterase Negative, Urine RBC 0-5 SEEN, Urine WBC 0 SEEN, Ur Squamous Epith Cells 0 SEEN, Urine Joseph teria 0 SEEN, Urine Mucus 0 SEEN 07/01/23 22:00: Troponin I High Sens 48 07/02/23 02:10: WBC 9.6, RBC 3.37 L, Hgb 9.0 L, Hct 27.2 L, MCV 80.7, MCH 26.7 L , MCHC 33.1, RDW Std Deviation 39.6, RDW Coeff of Marcelal 13.5, Plt Count 293, MPV 9.0, Immature Gran % (Auto) 0.400, Neut % (Auto) 72.9 H, Lymph % (Auto) 14.4 L, Wallace % (Auto) 8.6, Eos % (Auto) 2.9, Baso % (Auto) 0.8, Absolute Neuts (auto) 7.0, Absolute Lymphs (auto) 1.38, Nucleated RBC % 0, Sodium 141, Potassium 4.1, Chloride 112 H, Carbon Dioxide 22.0, Anion Gap 7, BUN 50 H, Creatinine 4.50 H, Estim Creat Clear Calc 26.68, Est GFR (MDRD) Af Amer 19 L, Est GFR (MDRD) Non-Af 15 L, BUN/Creatinine Ratio 11.1, Glucose 151 H, Calcium 9.1, Troponin I High Sens 49, Triglycerides 171, Cholesterol 170, LDL Cholesterol 78, VLDL C holesterol 34, HDL Cholesterol 58, TSH 3.33 Radiography Diagnostic Testing: Radiology Impression Chest X-Ray 07/01/23 13:30 IMPRESSION: Findings suggestive of mild degree of CHF with bibasilar atelectasis. Electronically Signed: Neeraj Brown MD at 13:41 EDT , Echocardiogram 07/02/23 05:55 Interpretation Summary Normal LV size. Left ventricular systolic function is normal. The estimated ejection fraction is 55 %. Normal diastology for age. Ordering Physician: Louis Koehler Referring Physician: Kristal Luke Performed By: Anupama Morin, RDCS, RVT Physical Exam Const alert, oriented x3, no apparent distress and well nourished General Appearance: cooperative and well developed HEENT normocephalic, head/scalp atraumatic and moist oral mucous membranes Eyes PERRL and EOMs intact bilaterally Neck supple and no JVD Lymph Lymphatic: no lymphadenopathy noted and no lymphedema noted Resp normal respiratory effort, normal air movement and clear to auscultation bilate rally Cardio regular rate, regular rhythm, S1 normal heart sound, S2 normal heart sound and no murmurs GI normal to inspection, nondistended, normoactive bowel sounds, soft to palpation and non-tender Extremity no clubbing, cyanosis or edema and no calf tenderness General Extremity: no tenderness to palpation of joints or extremities Skin General Skin Exam: no breakdown Neuro CN's II-XII intact bilaterally, no focal motor deficits and no sensory deficits noted Motor Exam: strength 5/5 throughout and general weakness Psych thought process normal and cooperative Appearance: appropriate Assessment & Plan Assessment/Plan (1) Dyspnea on exertion: (2) Volume overload: PLAN: Plan #Exertional dyspnea * shortness of breath has improved, and is now on room air. * being diuresed with IV lasix * Chest x-ray on admission showed increased interstitial edema and vascular congestion as well as bibasilar atelectasis. * 2D echo showed: EF of 55% with normal LV function and normal diastology for age. * #Galina on CKD IV * Cr was up to 4.68, and now down to 4.5. * nephrology consulted. * #Type 1 diabetes mellitus * Has history of diabetic retinopathy as well. * on insulin pump. * ISS. Accuchecks ACHS. * * #Hypertension: on metoprolol. DVT prophylaxis: on heparin Charges/Coding Visit Charges Inpatient E&M: 14702 Subs Hosp L2
--- NOTE | 2023-07-02 14:01 | US_ITS ---
HISTORY: ANN on CKD. TECHNIQUE: Greer scale and color doppler images were obtained of the kidneys. 85 images. COMPARISON: None. FINDINGS: RIGHT KIDNEY: 10.9 cm in length with a cortical thickness of 1.9 cm. Contour and echogenicity unremarkable. No hydronephrosis. No gross renal mass demonstrated. LEFT KIDNEY: 11.3 cm in length with a cortical thickness of 1.4 cm. Contour and echogenicity unremarkable. No hydronephrosis. No gross renal mass demonstrated. URINARY BLADDER: Unremarkable at 318 cc with a 3 mm wall thickness. US/Kidney and Bladder IMPRESSION: Unremarkable examination of the kidneys. Electronically Signed: Gypsy Dickey MD at 8:39 EDT ,
--- NOTE | 2023-07-02 14:20 | PCM.CONS.R ---
Assessment & Plan Assessment/Plan (1) Stage 4 chronic kidney disease: PLAN: Progressive renal insufficiency, consistent with diabetic nephropathy, compounded by proteinuria. He has normal potassium, no uremia, relatively stable creatinine, no acidosis, but has significant fluid overload. I do not think he needs dialysis today, but he needs his diuresis, as well as blood pressure control Plan Continue with IV diuretics Titrate blood pressure medications, I suggest beta-zain considering his pulse rate is quite high HPI Consult Data Date of Consult: 07/02/23 HPI Narrative Reason for Consultation: Advanced kidney failure, fluid overload HPI Narrative: JAN GONZALES, is a 42 M who presents with PND and orthopnea to emergency room. Jan has been suffering from diabetes mellitus since he was 18, 24 years of diabetes. His creatinine started to go off as long ago as 2016, at that time it was fluctuating between 1.0 and 1.4. It slowly crept up and at the end of 2022 was as high as 2.93, and that the beginning of this year it started to go up to 4. Unfortunately first time he has been seen by security system installer was last month, there was Dr. Diaz. And at that time there was no conversation about dialysis as of yet. He has not been taking diuretics and over the last week or so he noticed some increase in lower extremity edema, some dyspnea on exertion and PND. He came over to the emergency room and was found to be hypoxic, and congestive heart failure. He received diuretics, he diuresed 2.2 L of urine and feels much better today. He is on room air right now, he noticed improvement in lower extremity edema. He is hypertensive. He does have protein in the urine, his creatinine on admission was 4.6, it is 4.5 today. Electrolytes are fine, he has no significant acidosis. [facility] Medical History Abscess Charcot foot due to diabetes mellitus Diabetes mellitus type 1 Insulin pump titration Obesity Presence of insulin pump Type 1 diabetes mellitus Home Medications blood sugar diagnostic (FreeStyle Lite Strips) #100 ea 10/08/21 [Rx Last Taken Unknown] blood-glucose meter,continuous (Dexcom G6 Forensic Sergeant) #1 ea 10/08/21 [Rx Last Taken Unknown] lancing device with lancets kit (OneTouch Delica Plus Lancing Device kit) #100 ea 11/26/21 [Rx Last Taken Unknown] pen needle, diabetic 32 gauge x 5/32 (BD Ultra-Fine Carol Pen Needle) #150 ea 02/26/22 [Rx Last Taken Unknown] alcohol swabs (BD Alcohol Swabs) 1 pad topical .4 times daily #200 ea 05/20/22 [Rx Last Taken Unknown] insulin aspart U-100 100 unit/mL subcutaneous solution (Novolog U-100 Insulin aspart) 80 unit (0.8 mL) continuous subcutaneous infusion .continuous #72 mL 12/19/22 [Rx Last Taken Unknown] insulin pump cart,automated,BT (Omnipod 5 G6 Pods (Gen 5) subcutaneous cartridge) #30 ea 01/07/23 [Rx Last Taken Unknown] amlodipine 10 mg tablet 10 mg PO DAILY #90 tabs 05/14/23 [Rx Last Taken Unknown] blood-glucose sensor (Dexcom G6 Sensor device) #9 ea 05/14/23 [Rx Last Taken Unknown] blood-glucose transmitter (Dexcom G6 Transmitter device) #1 ea 05/14/23 [Rx Last Taken Unknown] rosuvastatin 10 mg tablet 10 mg PO DAILY #90 tabs 05/14/23 [Rx Last Taken Unknown] metoprolol succinate 25 mg tablet,extended release 24 hr 25 mg PO DAILY #30 tabs 05/29/23 [Rx Last Taken Unknown] Allergy/AdvReac Type Severity Reaction Status Date / Time No Known Allergies Allergy Verified 07/01/23 12:53 Family History Other Diabetes Social History Smoking Status: Never smoker alcohol intake: never substance use type: does not use ROS ROS Narrative 14 point comprehensive system review, all positives as well as pertinent negatives are reflected in current H&P Physical Exam Const alert, oriented x3, no apparent distress and average body habitus General Appearance: well developed Orientation / Consciousness: oriented to person, oriented to place and oriented to time HEENT normocephalic Head and Scalp: atraumatic External Ear: external ears normal Neck no lymphadenopathy Resp no use of accessory muscles and clear to auscultation bilaterally Cardio regular rate and no rub GI non-tender Auscultation: normoactive bowel sounds Palpation: soft Skin no rashes or lesions noted Neuro Sensorium / Orientation: awake and alert Motor Exam: muscle tone normal throughout Psych cooperative Lab / Micro Data Attestation: I reviewed the patient's lab results. 07/02/23 02:10 07/02/23 02:10 Labs: Laboratory Results - last 24 hr 07/01/23 13:14: Phosphorus 4.2, Magnesium 2.1 07/01/23 20:00: Troponin I High Sens 47 07/01/23 21:00: Urine Color Straw, Urine Clarity Clear, Urine pH 6.0, Ur Specific [place] 1.010, Urine Protein 100 H, Urine Glucose (UA) Normal, Urine Ketones Negative, Urine Occult Blood 25 H, Urine Nitrite Negative, Urine Bilirubin Negative, Urine Urobilinogen Normal, Ur Leukocyte Esterase Negative, Urine RBC 0-5 SEEN, Urine WBC 0 SEEN, Ur Squamous Epith Cells 0 SEEN, Urine Bacteria 0 SEEN, Urine Mucus 0 SEEN 07/01/23 22:00: Troponin I High Sens 48 07/02/23 02:10: WBC 9.6, RBC 3.37 L, Hgb 9.0 L, Hct 27.2 L, MCV 80.7, MCH 26.7 L, MCHC 33.1, RDW Std Deviation 39.6, RDW Coeff of Marcella 13.5, Plt Count 293, MPV 9.0, Immature Gran % (Auto) 0.400, Neut % (Auto) 72.9 H, Lymph % (Auto) 14.4 L, [place] % (Auto) 8.6, Eos % (Auto) 2.9, Baso % (Auto) 0.8, Absolute Neuts (auto) 7.0, Absolute Lymphs (auto) 1.38, Nucleated RBC % 0, Sodium 141, Potassium 4.1, Chloride 112 H, Carbon Dioxide 22.0, Anion Gap 7, BUN 50 H, Creatinine 4.50 H, Estim Creat Clear Calc 26.68, Est GFR (MDRD) Af Amer 19 L, Est GFR (MDRD) Non-Af 15 L, BUN/Creatinine Ratio 11.1, Glucose 151 H, Calcium 9.1, Troponin I High Sens 49, Triglycerides 171, Cholesterol 170, LDL Cholesterol 78, VLDL Cholesterol 34, HDL Cholesterol 58, TSH 3.33 Imaging Radiology Impression Echocardiogram 07/02/23 05:55 Interpretation Summary Normal LV size. Left ventricular systolic function is normal. The estimated ejection fraction is 55 %. Normal diastology for age. Ordering Physician: Louis Koehler Referring Physician: Kristal Luke Performed By: Anupama Morin, HUNTER, RVT
[2023-07-02 17:22] VITALS: BP 157/92; PULSE 89; RESP 14; TEMP 37.1; O2SAT 96
[2023-07-02] MEDS: 0.9% Saline Lock 10 ML Syringe IV (17:27)
[2023-07-02 20:08] VITALS: BP 160/91; PULSE 80; RESP 19; TEMP 36.7; O2SAT 92
[2023-07-03 01:49] VITALS: BP 161/91; PULSE 72; RESP 16; TEMP 36.7; O2SAT 92
[2023-07-03 04:34] LABS: Absolute Lymphocyte Count 2.01 X10^3/uL (0.83-4.51); Basophil# 0.07 X10^3/uL; Eosinophil# 0.37 X10^3/uL; Hematocrit 29.4 % (40-54); Hemoglobin 9.7 g/dL (13.0-16.5); Lymphocyte # 2.01 X10^3/ul (0.83-4.51); Lymphocyte % 27.4 % (19-41); Mean Corpuscular Hgb 27.2 pg (27.0-32.0); Mean Corpuscular Volume 82.4 fL (80-94); Mean Platelet Vol. 8.9 fl (6.2-12.0); Monocyte# 0.87 X10^3/uL; Monocyte% 11.9 % (0-10); NRBC Flagged by Analyzer 0 % (0-5); Neutrophil % 54.4 % (47-70); Platelet Count 286 K/mm3 (150-450); RBC Distribution Width CV 13.3 % (11.6-14.6); RBC Distribution Width SD 40.3 fl (35.1-43.9); Red Blood Count 3.57 M/mm3 (4.6-6.2); White Blood Count 7.3 K/mm3 (4.4-11.0)
[2023-07-03 04:49] LABS: Anion Gap 6 (5-15); BUN 50 mg/dL (7-18); BUN/Creat Ratio 10.1 RATIO (10-20); Chloride 111 mmol/L (98-107); Creatinine, Serum 4.94 mg/dL (0.70-1.30); EST Glomerular Filtration Rate 14 mL/min (>60); Est Glom Filt Rate - Afr Amer 17 mL/min (>60); Glucose 110 mg/dL (74-106); Potassium 3.9 mmol/L (3.5-5.1); Sodium Level 140 mmol/L (136-145)
[2023-07-03 08:48] VITALS: BP 160/96; PULSE 85; RESP 11; TEMP 36.6; O2SAT 95
[2023-07-03 08:50] VITALS: PULSE 85
[2023-07-03] MEDS: Atorvastatin Calcium 20 MG Tablet PO (08:50)
[2023-07-03] MEDS: Furosemide 40 MG/4 ML Vial IV (08:50)
[2023-07-03] MEDS: Metoprolol(XL)Succ 25 MG Tablet PO (08:50)
[2023-07-03] MEDS: Heparin Injection (Vial) 5,000 UNIT/ML VIAL 5000 UNIT SC (08:50)
[2023-07-03 12:05] VITALS: O2SAT 97
--- NOTE | 2023-07-03 12:29 | PN.RENAL_ITS ---
Subjective Subjective Patient is resting in bed. Reports breathing much improved. Reports edema much improved. Denies any nausea, vomiting or diarrhea. Reports has good appetite. Objective Data Objective Data Vital Signs: Vital Signs Temp Pulse Resp BP Pulse Ox O2 Del Method 97.8 F 85 11 L 160/96 H 95 Room Air 07/03/23 08:48 07/03/23 08:50 07/03/23 08:48 07/03/23 08:48 07/03/23 08:48 07/03/23 08:48 Oxygen Delivery Method Room Air Weight: 103.164 kg Body Mass Index (BMI) 31.7 Intake & Output: Intake and Output for Last 24 Hours 07/01/23 07/02/23 07/03/23 23:59 23:59 23:59 Intake Total 760 / 760 600 / 600 Output Total 950 / 950 3000 / 3000 1500 / 1500 Balance -950 / -950 -2240 / -2240 -900 / -900 Lab / Micro Data 07/03/23 04:20 07/03/23 04:20 Labs: Laboratory Results - last 24 hr 07/03/23 04:20: WBC 7.3, RBC 3.57 L, Hgb 9.7 L, Hct 29.4 L, MCV 82.4, MCH 27.2, MCHC 33.0, RDW Std Deviation 40.3, RDW Coeff of Marcella 13.3, Plt Count 286, MPV 8.9, Immature Gran % (Auto) 0.300, Neut % (Auto) 54.4, Lymph % (Auto) 27.4, [place] % (Auto) 11.9 H, Eos % (Auto) 5.0, Baso % (Auto) 1.0, Absolute Neuts (auto) 4.0, Absolute Lymphs (auto) 2.01, Nucleated RBC % 0, Sodium 140, Potassium 3.9, Chloride 111 H, Carbon Dioxide 23.0, Anion Gap 6, BUN 50 H, Creatinine 4.94 H, Estim Creat Clear Calc 24.30, Est GFR (MDRD) Af Amer 17 L, Est GFR (MDRD) Non-Af 14 L, BUN/Creatinine Ratio 10.1, Glucose 110 H, Calcium 9.0 Radiography Diagnostic Testing: Radiology Impression Echocardiogram 07/02/23 05:55 Interpretation Summary Normal LV size. Left ventricular systolic function is normal. The estimated ejection fraction is 55 %. Normal diastology for age. Ordering Physician: Louis Koehler Referring Physician: Kristal Luke Performed By: Anupama Morin, RDCS, RVT Renal Ultrasound 07/02/23 14:01 IMPRESSION: Unremarkable examination of the kidneys. Electronically Signed: Gypsy Dickey MD at 8:39 EDT , Physical Exam Narrative Alert and orient x 3, no apparent stress S1, S2, RRR Lung sounds clear anteriorly and posteriorly Abdomen soft, nontender No edema Assessment & Plan Assessment/Plan (1) Stage 4 chronic kidney disease: PLAN: - Progressive renal insufficiency, consistent with diabetic nephropathy, compounded by proteinuria. Also may have component of uncontrolled hypertension (for july years). Baseline creatinine unknown at this time but possibly low 4 mg/dL range. Patient did have creatinine of 3.5 mg/dL back in November 2022. On admission 06/30 creatinine 4.68, yesterday creatinine 4.5 and today his creatinine is at 4.94 mg/dL. Potassium and acid-base normal, nonoliguric. Patient has been on Lasix 40 mg IV twice daily and has responded well to IV diuresis. No further edema, lung sounds clear and is on room air. Today we will stop Lasix given slight rise in creatinine and patient is near euvolemia. Per cumulative I&O he is net -4 L. Renal ultrasound no hydronephrosis. P-ANCA, c-ANCA, double-stranded DNA all unremarkable. -Admission chest x-ray did suggest mild degree of CHF with bibasilar atelectasis. Echo: Normal LV size, left ventricular systolic function normal, estimated EF 55%, normal diastology for age. -Blood pressures remain elevated, he is on Lasix and metoprolol. Will increase metoprolol. Before admission patient had been taking amlodipine, will add back amlodipine. -No acute indication for TRANSMISSION OPERATOR at this time, acid-base and potassium are normal. Patient is nonoliguric. No significant uremic symptoms. I did have lengthy discussion with patient that he is likely heading towards needing TRANSMISSION OPERATOR. We discussed different types of dialysis modalities. He will have appointment at time of discharge to meet with dialysis educator. Patient seems to be leaning towards peritoneal dialysis (he has never had any abdominal surgeries). 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 Discussed importance of adequate glycemic control, adequate blood pressure control and avoiding nephrotoxic agents such as NSAIDs with patient. Patient will have close follow-up in our [place] office.
--- NOTE | 2023-07-03 12:52 | PCM.DC.SUM ---
Providers Date of Admission: 07/01/23 Date of Discharge: 07/03/23 Primary Care Physician: Dr. Kristal Luke MD Consultations 07/01/23 19:28 Consult: Nephrology Routine Consulting Provider: Daisy Diaz Reason for Consult: ANN on CKD EMERGENT Consult: No MD Notified: Yes Date Notified: 07/01/23 Time Notified: 18:29 Method of Notification: ED Physician Initiated Reason For Visit: DYSPNEA ON EXERTION, ORTHOPNEA, ANN ON CKD Diagnosis Discharge Diagnosis (1) Stage 4 chronic kidney disease: Status: Chronic Code(s): N18.4 - Chronic kidney disease, stage 4 (severe) Plan #Exertional dyspnea shortness of breath has improved, and is now on room air. being diuresed with IV lasix Chest x-ray on admission showed increased interstitial edema and vascular congestion as well as bibasilar atelectasis. 2D echo showed: EF of 55% with normal LV function and normal diastology for age. #Ann on CKD IV Cr was up to 4.68, and now down to 4.5. nephrology consulted. #Type 1 diabetes mellitus Has history of diabetic retinopathy as well. on insulin pump. ISS. Accuchecks ACHS. #Hypertension: on metoprolol. DVT prophylaxis: on heparin Medications at Discharge Home Medications blood sugar diagnostic (FreeStyle Lite Strips) #100 ea 10/08/21 blood-glucose meter,continuous (Dexcom G6 Program Attendant) #1 ea 10/08/21 lancing device with lancets kit ([employer] Plus Lancing Device kit) #100 ea 11/26/21 pen needle, diabetic 32 gauge x 5/32 (BD Ultra-Fine Carol Pen Needle) #150 ea 02/26/22 alcohol swabs (BD Alcohol Swabs) 1 pad topical .4 times daily #200 ea 05/20/22 insulin aspart U-100 100 unit/mL subcutaneous solution (Novolog U-100 Insulin aspart) 80 unit (0.8 mL) continuous subcutaneous infusion .continuous #72 mL 12/19/22 insulin pump cart,automated,BT (Omnipod 5 G6 Pods (Gen 5) subcutaneous cartridge) #30 ea 01/07/23 amlodipine 10 mg tablet 10 mg PO DAILY #90 tabs 05/14/23 blood-glucose sensor (Dexcom G6 Sensor device) #9 ea 05/14/23 blood-glucose transmitter (Dexcom G6 Transmitter device) #1 ea 05/14/23 rosuvastatin 10 mg tablet 10 mg PO DAILY #90 tabs 05/14/23 metoprolol succinate 25 mg tablet,extended release 24 hr 25 mg PO DAILY #30 tabs 05/29/23 furosemide 40 mg tablet 40 mg PO DAILY #30 tabs 07/03/23 Hospital Course Operations None Procedures None Summary of Care Provided Minutes Spent on Discharge: 45 Hospital Course: Patient is a 42-year-old male with past medical history as outlined including hypertension, type 1 diabetes mellitus and CKD stage IV. He was admitted through the ED on 07/01/2023 with a complaint of shortness of breath, orthopnea and swelling of his face, hands and feet. He had been going on and worsening for about 3 days. He admitted to orthopnea. He had been diagnosed with CKD about 3 to 4 months ago. He denied any chest pain. Creatinine on admission was 4.68. He was also hypoxic. Chest x-ray showed findings suggestive of mild degree of CHF with bibasilar atelectasis he was admitted and managed for fluid overload likely due to worsening CKD and probable heart failure. He was diuresed with IV Lasix. His shortness of breath improved and he did well. Nephrology was consulted and did not think the patient needed dialysis but would do well with diuresis. Patient's blood pressure was controlled with his blood pressure medications. He felt better and did well. He was discharged home on 07/03/2023. He was discharged on p.o. furosemide 40 mg daily as well as amlodipine and metoprolol. He is to follow-up with his primary care doctor and nephrology within 1 to 2 weeks. Patient seen and examined prior to discharge. He had no complaints and had an uneventful night. Review of systems otherwise negative. Labs and vitals reviewed. Home medication reviewed and reconciled. Physical Exam Const alert, oriented x3, no apparent distress and well nourished General Appearance: cooperative, comfortable, well kempt and well developed HEENT normocephalic, head/scalp atraumatic, hearing grossly normal bilaterally and moist oral mucous membranes Mouth: oral and palatal mucosa normal Eyes PERRL and EOMs intact bilaterally Neck supple and no JVD Lymph Lymphatic: no lymphadenopathy noted and no lymphedema noted Resp normal respiratory effort, normal air movement and clear to auscultation bilaterally Cardio regular rate, regular rhythm, S1 normal heart sound, S2 normal heart sound and no murmurs GI normal to inspection, nondistended, normoactive bowel sounds, soft to palpation and non-tender Extremity no clubbing, cyanosis or edema and no calf tenderness General Extremity: no tenderness to palpation of joints or extremities Skin General Skin Exam: no breakdown Neuro oriented x3, CN's II-XII intact bilaterally, moves all extremities, no focal motor deficits and no sensory deficits noted Sensorium / Orientation: awake Motor Exam: strength 5/5 throughout and general weakness Psych thought process normal, cooperative and affect normal Appearance: appropriate Weight / BMI Weight Weight: 227 lb 7.003 oz Body Mass Index (BMI) 31.7 ABG / Lab / Microbiology Data 07/03/23 04:20 07/03/23 04:20 Laboratory: Laboratory Results - last 24 hr 07/03/23 04:20: WBC 7.3, RBC 3.57 L, Hgb 9.7 L, Hct 29.4 L, MCV 82.4, MCH 27.2, MCHC 33.0, RDW Std Deviation 40.3, RDW Coeff of Marcella 13.3, Plt Count 286, MPV 8.9, Immature Gran % (Auto) 0.300, Neut % (Auto) 54.4, Lymph % (Auto) 27.4, [place] % (Auto) 11.9 H, Eos % (Auto) 5.0, Baso % (Auto) 1.0, Absolute Neuts (auto) 4.0, Absolute Lymphs (auto) 2.01, Nucleated RBC % 0, Sodium 140, Potassium 3.9, Chloride 111 H, Carbon Dioxide 23.0, Anion Gap 6, BUN 50 H, Creatinine 4.94 H, Estim Creat Clear Calc 24.30, Est GFR (MDRD) Af Amer 17 L, Est GFR (MDRD) Non-Af 14 L, BUN/Creatinine Ratio 10.1, Glucose 110 H, Calcium 9.0 Radiography Diagnostic Testing: Radiology Impression Renal Ultrasound 07/02/23 14:01 IMPRESSION: Unremarkable examination of the kidneys. Electronically Signed: Gypsy Dickey MD at 8:39 EDT Reading Location ID and State: [facility] / [place] Tel , Service support , D/C Instructions Discharge Diet: Low fat / Low cholesterol Discharge Activity: Return to Normal Activity Weight Bearing Status: Weight bearing as tolerated Call your doctor if you observe: Fever of 101 or Higher, Shortness of breath, Dizziness, Swelling in the ankles and Chest pain Meaningful Use Info Meaningful Use Diagnoses (Choose all that apply): None applicable Discharge Plan Admission Admit Date/Time: 07/01/23 17:44 Primary Reason for Your Visit: fluid overload Attending Provider: Nelly Gross Primary Care Provider: Kristal Luke Consulting Providers: Daisy Diaz; Louis Koehler Instructions Patient Instructions: Heart Failure: Know Your Baselines, ED Dyspnea Discharge Orders/Prescriptions Prescriptions: New furosemide 40 mg tablet 40 mg PO DAILY Qty: 30 2RF Continued (DME) FreeStyle Lite Strips Strip See Rx Instructions .Route Qty: 100 6RF Rx Instructions: 3x/day (DME) Dexcom G6 Program Attendant Misc See Rx Instructions .Route Qty: 1 0RF Rx Instructions: As directed insulin aspart U-100 [Novolog U-100 Insulin aspart] 100 unit/mL solution 80 unit continuous subcutaneous infusion .continuous Qty: 72 1RF amlodipine 10 mg tablet 10 mg PO DAILY Qty: 90 1RF rosuvastatin 10 mg tablet 10 mg PO DAILY Qty: 90 1RF (DME) Dexcom G6 Transmitter Device See Rx Instructions .Route Qty: 1 1RF Rx Instructions: 1 q 90 days (DME) Dexcom G6 Sensor Device See Rx Instructions .Route Qty: 9 1RF Rx Instructions: 1 sensor q 10 days (DME) lancing device with lancets [OneTouch Delica Plus Lanc Dev] Kit See Rx Instructions .Route Qty: 100 1RF Rx Instructions: 4x/day (DME) pen needle, diabetic [BD Ultra-Fine Carol Pen Needle] 32 gauge x 5/32 needle See Rx Instructions .ROUTE .MEDSUPPLY Qty: 150 5RF Rx Instructions: 4 times daily alcohol swabs [BD Alcohol Swabs] Pads, Medicated 1 pad TOPICAL .4 times daily Qty: 200 5RF (DME) Omnipod 5 G6 Pods (Gen 5) Cartridge See Rx Instructions .Route Qty: 30 1RF Rx Instructions: 1 pod q 72 hours metoprolol succinate 25 mg tablet extended release 24 hr 25 mg PO DAILY Qty: 30 5RF Referrals / Follow Up: Kristal Luke MD [Primary Care Provider] - Within 2 Weeks Disposition Disposition (needs filled in before D/C Order can be placed): Home, Self Care Charges/Coding Visit Charges Inpatient E&M: 98396 Disch Hosp >30min
== END 2023-07-03 14:20 | disposition home or self-care (01) | DRG 194 ==
LOC: ED 14:52 → ICU 18:45
PROVIDERS: Admitting Provider Internal Medicine; Emergency Provider Emergency Medicine; PCP Internal Medicine; Visit Provider Student in an Organized Health Care Education/Training Program
DX: I13.0 Hypertensive heart and chronic kidney disease with heart failure and stage 1 through stage 4 chronic kidney disease, or unspecified chronic kidney disease (principal); N17.9 Acute kidney failure, unspecified; E10.22 Type 1 diabetes mellitus with diabetic chronic kidney disease; D64.9 Anemia, unspecified; E87.71 Transfusion associated circulatory overload; E66.9 Obesity, unspecified; N18.4 Chronic kidney disease, stage 4 (severe); I50.30 Unspecified diastolic (congestive) heart failure; Z79.4 Long term (current) use of insulin; R06.01 Orthopnea; R80.9 Proteinuria, unspecified; R09.02 Hypoxemia; Z96.41 Presence of insulin pump (external) (internal); Z79.899 Other long term (current) drug therapy; Z68.32 Body mass index [BMI] 32.0-32.9, adult
CPT/HCPCS: 71045; 76770; 80048; 80061; 81001; 83735; 84100; 84443; 84484; 85025; 93005; 93306; 94668; 99252; 99285; Q9957; A4216; G0463; J1940

== ENCOUNTER → 2023-07-23 | Outpatient (CLI) | payer MEDICAID, SELFPAY ==
[2023-07-23 15:14] LABS: Albumin, Serum 3.3 g/dL (3.2-5.0); BUN 75 mg/dL (7-18); BUN/Creat Ratio 14.7 RATIO (10-20); Calcium,Total 9.4 mg/dL (8.5-10.1); Chloride 105 mmol/L (98-107); Creatinine, Serum 5.09 mg/dL (0.70-1.30); EST Glomerular Filtration Rate 13 mL/min (>60); Est Glom Filt Rate - Afr Amer 16 mL/min (>60); Glucose 253 mg/dL (74-106); Phosphorus 5.7 mg/dL (2.5-4.9); Potassium 5.3 mmol/L (3.5-5.1); Sodium Level 135 mmol/L (136-145)
== END | disposition home or self-care (01) ==
LOC: LAB 13:16
PROVIDERS: PCP Internal Medicine; Referring Provider Internal Medicine Nephrology; Visit Provider Internal Medicine Nephrology
DX: N18.4 Chronic kidney disease, stage 4 (severe) (principal)
CPT/HCPCS: 36415; 80069

== ENCOUNTER → 2023-07-31 | Outpatient (CLI) | payer MEDICAID, SELFPAY ==
--- NOTE | 2023-07-31 15:11 | VDUE_ITS ---
Reason For Study: End stage kidney failure Right Lower Arm Left Arm Proximal Radial artery diameter 1.9 x 2.0 Left Brachial artery diameter 3.8 x 3.7 mm. mm. Left Brachial artery waveform is triphasic . Proximal Radial artery waveform is Lateral Brachial vein diameter 2.9 x 2.6 mm. triphasic . Medial Brachial vein diameter 3.0 x 3.4 mm. Proximal Lateral Radial vein diameter 2.0 x Winder Contort Operator Vein is present. 2.1 mm. Winder Contort Operator Vein measures 1.8 mm. Proximal Medial Radial vein diameter 1.8 x Cephalic Vein at proximal upper arm measures 2.2 mm. 3.8 x 3.5 mm. Distal Radial artery diameter 1.3 x 1.5 mm. Cephalic vein at proximal upper arm depth Distal Lateral Radial vein diameter 1.4 x measures 7.0 mm. 1.3 mm. Cephalic Vein at mid upper arm measures 3.7 Distal Medial Radial vein diameter 1.2 x 1.2 x 3.8 mm. mm. Cephalic vein at mid upper arm depth Proximal Ulnar artery diameter 3.7 x 3.8 mm. measures 2.2 mm. Proximal Ulnar artery waveform is Cephalic Vein distal upper arm measures 3.4 triphasic . x 3.5 mm. Proximal Lateral Ulnar vein diameter 2.7 x Cephalic vein at distal upper arm depth 2.5 mm. measures 2.2 mm. Proximal Medial Ulnar vein diameter 3.1 x Cephalic Vein proximal forearm measures 2.2 3.0 mm. x 2.4 mm. Distal Ulnar artery diameter 1.9 x 1.9 mm. Cephalic Vein at mid forearm measures 2.6 x Distal Lateral Ulnar vein diameter 1.1 x 1.3 2.4 mm. mm. Cephalic Vein at distal forearm measures 3.2 Distal Medial Ulnar vein diameter 0.9 x 1.0 x 3.1 mm. mm. Proximal Basilic vein measures 4.0 x 4.0 mm. Right Arm Proximal Basilic vein depth measures 8.0 mm. Right Brachial artery diameter 3.4 x 3.4 mm. Mid Basilic vein measures 4.1 x 4.4 mm. Right Brachial artery waveform is Mid Basilic vein depth measures 4.8 mm. triphasic . Distal Basilic vein measures 3.0 x 3.0 mm. Lateral Brachial vein diameter 2.9 x 3.2 mm. Distal Basilic vein depth measures 3.8 mm. Medial Brachial vein diameter 2.5 x 2.5 mm. Left Lower Arm Winder Contort Operator Vein is present. Proximal Radial artery diameter 1.8 x 1.6 Winder Contort Operator Vein measures 2.6 mm. mm. Cephalic Vein at proximal upper arm measures Proximal Radial artery waveform is 4.1 x 3.8 mm. triphasic . Cephalic vein at proximal upper arm depth Proximal Lateral Radial vein diameter 1.3 x measures 9.1 mm. 1.1 mm. Cephalic Vein at mid upper arm measures 4.8 Proximal Medial Radial vein diameter 1.9 x x 4.6 mm. 1.9 mm. Cephalic vein at mid upper arm depth Distal Radial artery diameter 1.7 x 1.8 mm. measures 3.6 mm. Distal Lateral Radial vein diameter 1.1 x Cephalic Vein distal upper arm measures 6.0 1.1 mm. x 6.4 mm. Distal Medial Radial vein diameter 1.2 x 1.3 Cephalic vein at distal upper arm depth mm. measures 2.8 mm. Proximal Ulnar artery diameter 3.7 x 3.4 mm. Cephalic Vein proximal forearm measures 3.2 Proximal Ulnar artery waveform is x 3.2 mm. triphasic . Cephalic Vein at mid forearm measures 2.8 x Proximal Lateral Ulnar vein diameter 2.9 x 2.8 mm. 3.3 mm. Cephalic Vein at distal forearm measures 2.1 Proximal Medial Ulnar vein diameter 2.6 x x 1.9 mm. 2.6 mm. Proximal Basilic vein measures 4.2 x 4.3 mm. Distal Ulnar artery diameter 1.6 x 1.3 mm. Proximal Basilic vein depth measures 12.6 Distal Lateral Ulnar vein diameter 1.2 x 1.1 mm. mm. Mid Basilic vein measures 5.6 x 5.3 mm. Distal Medial Ulnar vein diameter 0.7 x 0.6 Mid Basilic vein depth measures 6.6 mm. mm. Distal Basilic vein measures 5.6 x 5.8 mm. Distal Basilic vein depth measures 3.1 mm. VL/Dialysis Vein Map PRE-OP BILAT Interpretation Summary Patent and compressible bilateral upper extremity cephalic and basilic veins. Normal bilateral radial and brachial artery flow. Additional venous dimensions as noted. Ordering Physician: Caleb Vargas Referring Physician: Kristal Luke Performed By: Lara Yanez RVT ???
== END | disposition home or self-care (01) ==
LOC: CVS 15:08
PROVIDERS: PCP Internal Medicine; Visit Provider Surgery
DX: Z01.818 Encounter for other preprocedural examination (principal); N18.6 End stage renal disease
CPT/HCPCS: 93985

== ENCOUNTER 2023-08-01 06:46 | Day surgery (SDC) | payer MEDICAID, SELFPAY ==
[2023-08-01] VITALS (8 sets, daily range): BP systolic 114–164; BP diastolic 58–90; PULSE 64–80; RESP 16–18; TEMP 36.2–36.8; O2SAT 93–100; BMI 29.8
--- NOTE | 2023-08-01 07:32 | HP.PCM_ITS ---
History and Physical Date of Admission: 08/01/23 Visit Reasons: PD CATH Chief Complaint: PD cath Business Management Consultant Required: No Is patient in pain?: No Allergies No Known Allergies Allergy (Verified 07/30/23 14:23) Medications blood sugar diagnostic (FreeStyle Lite Strips) #100 ea 10/08/21 [Rx Confirmed 07/30/23] blood-glucose meter,continuous (Dexcom G6 Mine Motor Engineer) #1 ea 10/08/21 [Rx Confirmed 07/30/23] lancing device with lancets kit ([employer] Plus Lancing Device kit) #100 ea 11/26/21 [Rx Confirmed 07/30/23] pen needle, diabetic 32 gauge x 5/32 (BD Ultra-Fine Carol Pen Needle) #150 ea 02/26/22 [Rx Confirmed 07/30/23] alcohol swabs (BD Alcohol Swabs) 1 pad topical .4 times daily #200 ea 05/20/22 [Rx Confirmed 07/30/23] insulin aspart U-100 100 unit/mL subcutaneous solution (Novolog U-100 Insulin aspart) 80 unit (0.8 mL) continuous subcutaneous infusion .continuous #72 mL 12/19/22 [Rx Confirmed 07/30/23] amlodipine 10 mg tablet 10 mg PO DAILY #90 tabs 05/14/23 [Rx Confirmed 07/30/23] blood-glucose transmitter (Dexcom G6 Transmitter device) #1 ea 05/14/23 [Rx Confirmed 07/30/23] rosuvastatin 10 mg tablet 10 mg PO DAILY #90 tabs 05/14/23 [Rx Confirmed 07/30/23] metoprolol succinate 25 mg tablet,extended release 24 hr 25 mg PO DAILY #30 tabs 05/29/23 [Rx Confirmed 07/30/23] insulin pump cart,automated,BT (Omnipod 5 G6 Pods (Gen 5) subcutaneous cartridge) #30 ea 07/08/23 [Rx Confirmed 07/30/23] blood-glucose sensor (Dexcom G6 Sensor device) #9 ea 07/14/23 [Rx Confirmed 07/30/23] furosemide 40 mg tablet 80 mg PO DAILY 07/30/23 [History Confirmed 07/30/23] ON LICENSE OF [facility] Medical History (Updated 07/30/23 @ 14:49 by Nichole Tubbs) Abscess Acute kidney injury Charcot foot due to diabetes mellitus CKD (chronic kidney disease) Diabetes mellitus type 1 ESRF (end stage renal failure) Hypertension Insulin pump titration Obesity Pre-op testing Presence of insulin pump Stage 4 chronic kidney disease Type 1 diabetes mellitus Surgical History (Updated 07/30/23 @ 14:25 by Nichole Tubbs) History of surgery on lower extremity Family History (Updated 07/30/23 @ 14:25 by Nichole Tubbs) Mother Diabetes Thyroid disorderGrandmother DiabetesGrandfather Diabetes Social History Smoking Status: Never smoker alcohol intake: never substance use type: does not use HPI HPI HPI: 42-year-old gentleman is being referred by Drs. Diaz for surgical consultation regarding placement of a peritoneal dialysis catheter and a written, my surgical consult and recommendations will return to him. The patient has chronic stage IV chronic renal disease complicated by diabetic nephropathy. Also concerns over uncontrolled hypertension. The patient was recently hospitalized at the [facility] June 30 through July 03, 2023 with acute shortness of breath and acute exacerbation of his chronic kidney disease. He was found to be in fluid overload. As of July 03, 2023 white blood cell count was 7.3 with a hemoglobin 9.7 hematocrit 29.4 platelet count 286,000. As of July 23, 2023 potassium was 5.3 with a BUN of 75 and a creatinine of 5.09 with a estimated GFR of 13. Glucose at that time was 253. On today's visit the patient states that he went to dialysis training and at that point it was recommended that he strongly consider hemodialysis. The patient is a future candidate for combined pancreas kidney transplant. He is right arm dominant. He has not yet had vein mapping. He has not any surgical procedures on his chest or either arm. The patient states that since his hospitalization with fluid overload he is feeling much better. He is denying any chest pain or current shortness of breath. ROS General General: No weight change, appetite, fatigue, colon cancer, breast cancer or weakness HEENT HEENT: No difficulty swallowing, eye injury, eye surgery, swollen glands or hoarseness Endo Endocrine: Yes diabetes mellitus; No thyroid disease, thyroid cancer, Hair loss, heat intolerance or cold intolerance Skin Skin: No rash or changing moles Breast Breast: No left breast lump, right breast lump, nipple discharge, breast pain, abnormal mammogram, abnormal US or breast enlargement Musc Musculoskeletal: No back problems, arthritis, rheumatoid arthritis, gout or joint pain Cardio Cardiovascular: Yes high blood pressure; No murmur, pacemaker, heart disease, atrial fibrillation, heart attack, heart stent, palpitations, shortness of breat with exertion or chest pain Psych Psychiatric: No depression, anxiety or hearing voices Resp Respiratory: No shortness of breath, No sleep apnea, No cough, No COPD, No asthma, No emphysema and No wheezing Gastro Gastrointestinal: No abdominal pain, No nausea or vomiting, No diarrhea, No constipation, No blood in stool, No acid reflux, No hemorrhoids, No ulcers, No gallbladder problem and No black,tarry stools Mc Hematologic: No blood thinners, No blood disorders, No bleeding, No anemia and No blood clots Neuro Neurologic: No system reviewed and no additional complaints, except as documented, No as per HPI, No abnormal gait, No abnormal hearing, No abnormal movements, No abnormal speech, No behavioral changes, No burning sensations, No confusion, No convulsions, No disequilibrium, No dizziness, No localized w eakness, No frequent falls, No headache(s), No lack of coordination, No loss of vision, No memory loss, No numbness, No other visual disturbances, No radicular pain, No restless legs, No sensory deficit, No syncope, No tingling, No tremor(s), No weakness and No other Exam Const General: cooperative, comfortable and no acute distress Nutritional Appearance: obese [facility] Head: normal to inspection Eyes General: appearance normal, both eyes and all related structures Neck Neck: normal visual inspection Chest Chest palpation & inspection: normal inspection of the chest Resp Effort & Inspection: normal respiratory effort Auscultation: clear to auscultation bilaterally Cardio Rate: regular rate Rhythm: regular rhythm GI Inspection: normal to inspection Palpation: soft and no hepatosplenomegaly Musc Cervical Spine: normal cervical lordosis Skin General: no rashes or lesions noted Neuro General: patient alert and patient awake Extrem General: no calf tenderness Psych Appearance: grossly normal Assessment and Plan Assessment and Plan (1) CKD (chronic kidney disease): Status: Chronic Qualifiers: Chronic kidney disease stage: stage 3 (moderate) Chronic kidney disease stage 3 subtype: stage 3a (GFR 45-59) Qualified Code(s): N18.31 - Chronic kidney disease, stage 3a Plan: I visually inspected his left upper extremity with ultrasound. Although somewhat marginal in diameter I believe that he has a patent and compressible left forearm cephalic vein and appears to be patent throughout the upper arm. He has a 3+ left radial pulse. Red test demonstrates adequate left ulnar flow. With that in mind I propose for him a left forearm radiocephalic arteriovenous meta-analysis fistula creation. I have discussed technique, benefit, risk, alternatives. He had an opportunity to ask and have questions answered. We will obtain a bilateral upper extremity vein mapping study tomorrow to confirm my evaluation. The patient is already on the operative schedule for July 31. We will convert from the peritoneal dialysis catheter to a forearm hemodialysis fistula creation. I appreciate the opportunity of assisting with the surgical care. Copy: Dr. Kristal Conti and Dr. Emily Vargas M.D., F.A.C.S. I have examined the patient and the H&P has been reviewed. There are no clinical changes since date of exam. I have reviewed the patient's vein mapping study and this appears to be unremarkable and cleared to proceed with planned procedure Caleb Vargas M.D., F.A.C.S.
--- NOTE | 2023-08-01 07:32 | EX.PCM.DISCH ---
Discharge Instructions Procedure Fistula Diet Discharge Diet: Renal Diet Activity Discharge Activity: May Not Drive (for 2-3 days or while taking narcotic pain medications.), May Shower and May Take a Tub Bath (in 5 days.) Lifting Restrictions: 5 pounds Keep extremity elevated above heart level: - (Keep arm elevated above the heart level for 3 days.) Dressing / Incision Call your doctor if your incision/area has: Continuous Slow Oozing, Sudden Increased Bleeding (apply pressure and call your doctor.), Increased Pain/ Swelling, Increased Redness and Foul Smelling Discharge Call your doctor if you observe: Fever of 101 or Higher Suture Line Care: Avoid Pulling/Pushing and Avoid Pinching/Bending Cleanse incision/area with: Keep Dressing Clean & Dry Additional Dressing/Incision Instructions:: Change or remove dressing in one day. May protect with a gauze bandaid. Follow Up Care Please Follow Up With: Caleb Vargas MD When: Call [phone] to make an appointment for suture removal and follow up in 1 week. Test Results: Test results from this visit will be discussed in further detail at your follow-up appointment, if applicable. Discharge Plan Admission Attending Provider: Caleb Vargas Primary Care Provider: Kristal Luke Discharge Orders/Prescriptions Prescriptions: No Action (DME) FreeStyle Lite Strips Strip See Rx Instructions .Route Qty: 100 6RF Rx Instructions: 3x/day (DME) Dexcom G6 [employer] Member Misc See Rx Instructions .Route Qty: 1 0RF Rx Instructions: As directed insulin aspart U-100 [Novolog U-100 Insulin aspart] 100 unit/mL solution 80 unit continuous subcutaneous infusion .continuous Qty: 72 1RF amlodipine 10 mg tablet 10 mg PO DAILY Qty: 90 1RF rosuvastatin 10 mg tablet 10 mg PO DAILY Qty: 90 1RF (DME) Dexcom G6 Transmitter Device See Rx Instructions .Route Qty: 1 1RF Rx Instructions: 1 q 90 days furosemide 40 mg tablet 80 mg PO DAILY (DME) lancing device with lancets [[employer] Delica Plus Lanc Dev] Kit See Rx Instructions .Route Qty: 100 1RF Rx Instructions: 4x/day (DME) pen needle, diabetic [BD Ultra-Fine Carol Pen Needle] 32 gauge x 5/32 needle See Rx Instructions .ROUTE .MEDSUPPLY Qty: 150 5RF Rx Instructions: 4 times daily alcohol swabs [BD Alcohol Swabs] Pads, Medicated 1 pad TOPICAL .4 times daily Qty: 200 5RF metoprolol succinate 25 mg tablet extended release 24 hr 25 mg PO DAILY Qty: 30 5RF (DME) Omnipod 5 G6 Pods (Gen 5) Cartridge See Rx Instructions .Route Qty: 30 1RF Rx Instructions: 1 pod q 72 hours (DME) Dexcom G6 Sensor Device See Rx Instructions .Route Qty: 9 1RF Rx Instructions: 1 sensor q 10 days Referrals / Follow Up: Kristal Luke MD [Primary Care Provider] - Disposition Disposition (needs filled in before D/C Order can be placed): Home, Self Care
[2023-08-01 07:53] LABS: Bedside Glucose 93 mg/dL (74-106)
[2023-08-01] MEDS: Lidocaine 1% (30 ml sdv) 30 ML Vial (08:59)
[2023-08-01] MEDS: Heparin Injection (Vial) 5,000 UNIT/ML VIAL 5000 UNIT (08:59)
[2023-08-01] MEDS: Bupivacaine Mpf 0.5% 30 ML VIAL (08:59)
--- NOTE | 2023-08-01 10:10 | PCM.OPRPT ---
Report of Operation Date of Procedure: 08/01/23 Pre-Operative Diagnosis: Stage IV chronic renal failure Post-Operative Diagnosis: Same Surgery/Procedure Performed:: Left forearm radiocephalic arteriovenous hemodialysis fistula creation Description of Surgical Findings:: Timeout informed consent was obtained. 42-year-old gentleman was taken to the operating placed upon the table underwent monitored anesthesia care. Clean procedure no antibiotics required. The left upper extremity was sterilely prepped and draped. 1% lidocaine mixed 50-50 with 0.5% Marcaine was used as a local anesthetic. Total of 19 cc was used. Ultrasound mapping of the cephalic vein was performed prior to the procedure. Local was instilled. A slightly oblique incision was made in the radial aspect of the distal left forearm. Sharp and blunt dissection was used to identify the cephalic vein this was dissected free. Blue ink marking anterior surface. Sharp blunt dissection was used but then defy the radial artery. Because I needed to be slightly more proximal in the forearm due to very small nature of the vein more distally the artery is somewhat deep and required tedious dissection to elevate it to a degree. It was evident that the artery had diffuse calcifications. After adequate mobilization the patient received 9000 heparin intravenously. Peripheral vascular clamps were placed on the radial artery and 11 blade was used to make an arteriotomy which was extended with Jack scissors. The vein was ligated distally with a Hemoclip and then the vein was spatulated it irrigated well and decided venous to arterial anastomosis was created with a running 7-0 Prolene. At the completion hemostasis appeared to be intact. The vein appeared to have a nice curvilinear lie. There appeared to be a good pulse and thrill. Doppler signals are intact. Patient received 20 mg of protamine as reversal agent. The subcutaneous tissues were approximated interrupted 3-0 Vicryl. Skin edges approximated running subicular 4 Monocryl. Steri-Strips Telfa tape dressings applied. Sponge and instrument and needle counts were reported to the surgeon to be correct. Specimen none. Drains none. Blood loss minimal. Caleb Vargas M.D., F.A.C.S. Surgeon: Caleb Vargas Type of Anesthesia: Local MAC Anesthesiologist: Chucho Harris
== END 2023-08-01 11:47 | disposition home or self-care (01) ==
LOC: SDC 06:46 → AC 06:47
PROVIDERS: PCP Internal Medicine; Referring Provider Surgery; Visit Provider Surgery
PROC: (CPT 36821; principal; 2023-08-01 08:50)
DX: I12.0 Hypertensive chronic kidney disease with stage 5 chronic kidney disease or end stage renal disease (principal); Z94.83 Pancreas transplant status; N18.6 End stage renal disease; E10.22 Type 1 diabetes mellitus with diabetic chronic kidney disease; E10.21 Type 1 diabetes mellitus with diabetic nephropathy; Z96.41 Presence of insulin pump (external) (internal); E55.9 Vitamin D deficiency, unspecified
CPT/HCPCS: 36821; 01844; 82962; A4648; J7040; J2405

== ENCOUNTER 2023-08-17 15:50 | Emergency (ER) | payer MEDICAID, SELFPAY ==
[2023-08-17 15:51] VITALS: BP 151/76; PULSE 79; RESP 18; TEMP 36.3; O2SAT 98; BMI 29.7
--- NOTE | 2023-08-17 16:53 | EX.ED.DYSGE1 ---
HPI History of Present Illness Chief Complaint: Rash Narrative Narrative: Patient presenting of rash on his bilateral arms and on his face. States he has been working in the garden this week and noticed the rash after this. He states he had poison oak/poison chavez several times and feels similar. It is itchy in nature. Patient otherwise feeling well. Patient has a history of type 1 diabetes and has an insulin pump and has not had any elevated blood sugars. [facility] Medical History Pre-op testing ESRF (end stage renal failure) Stage 4 chronic kidney disease Diabetes mellitus type 1 Insulin pump titration Presence of insulin pump CKD (chronic kidney disease) Hypertension Obesity Abscess Charcot foot due to diabetes mellitus Type 1 diabetes mellitus Acute kidney injury Home Medications ?Medication ?Instructions ?Recorded ?Last Taken ?Type blood sugar diagnostic (FreeStyle #100 ea 10/08/21 Unknown Rx Lite Strips) blood-glucose meter,continuous #1 ea 10/08/21 Unknown Rx (Dexcom G6 Catering Attendant) lancing device with lancets kit #100 ea 11/26/21 Unknown Rx (OneTouch Delica Plus Lancing Device kit) pen needle, diabetic 32 gauge x #150 ea 02/26/22 Unknown Rx 5/32 (BD Ultra-Fine Carol Pen Needle) alcohol swabs (BD Alcohol Swabs) 1 pad topical .4 times daily #200 05/20/22 Unknown Rx ea insulin aspart U-100 100 unit/mL 80 unit (0.8 mL) continuous 12/19/22 Unknown Rx subcutaneous solution (Novolog subcutaneous infusion .continuous U-100 Insulin aspart) #72 mL amlodipine 10 mg tablet 10 mg PO DAILY #90 tabs 05/14/23 08/01/23 Rx blood-glucose transmitter (Dexcom #1 ea 05/14/23 Unknown Rx G6 Transmitter device) rosuvastatin 10 mg tablet 10 mg PO DAILY #90 tabs 05/14/23 08/01/23 Rx metoprolol succinate 25 mg 25 mg PO DAILY #30 tabs 05/29/23 08/01/23 Rx tablet,extended release 24 hr insulin pump cart,automated,BT #30 ea 07/08/23 Unknown Rx (Omnipod 5 G6 Pods (Gen 5) subcutaneous cartridge) blood-glucose sensor (Dexcom G6 #9 ea 07/14/23 Unknown Rx Sensor device) furosemide 40 mg tablet 80 mg PO DAILY 07/30/23 08/01/23 History prednisone 10 mg tablet 10 mg PO DAILY #48 TABLETS 08/17/23 Unknown Rx Allergy/AdvReac Type Severity Reaction Status Date / Time No Known Allergies Allergy Verified 08/17/23 15:50 Family History Mother Diabetes Thyroid disorder Grandmother Diabetes Grandfather Diabetes Surgical History History of surgery on lower extremity Social History Smoking Status: Never smoker alcohol intake: never substance use type: does not use ROS ROS ED Constitutional Constitutional ED: Denies chills, fever(s) or sweats Eyes Eyes: Denies blurry vision or change in vision ENT ENT ED: Denies ear pain or sore throat Cardiovascular Cardiovascular: Denies chest pain, palpitations or racing heartbeat Respiratory/Chest Respiratory/Chest: Denies cough, dyspnea or sputum Gastrointestinal Gastrointestinal: Denies abdominal pain, constipation, diarrhea, nausea or vomiting Genitourinary Genitourinary ED: Denies dysuria, hematuria or urinary frequency Musculoskeletal Musculoskeletal: Denies arthralgias, myalgias or neck pain Integumentary Reports rash; Denies abscess or Abrasions Neurologic Neurologic: Denies headache(s), paresthesias or weakness Psychiatric Psychiatric: Denies anxiety, depression, suicidal ideation or suicidal thoughts Endocrine Endocrinology: Denies polydipsia or polyuria EXAM Physical Exam Const Vital Signs: 08/17/23 15:51 Temperature 97.4 F L Temperature Source Temporal Pulse Rate 79 Respiratory Rate 18 Blood Pressure 151/76 H Blood Pressure Mean 101 Pulse Ox 98 Oxygen Delivery Method Room Air Positive well nourished General Appearance ED: NAD HEENT Reports moist mucous membranes Eyes PERRL and EOMs intact bilaterally Resp normal respiratory effort Cardio regular rate and regular rhythm Neuro oriented x3 and CN's II-XII intact bilaterally Sensorium / Orientation: alert Motor Exam: strength 5/5 throughout Skin Skin Narrative: Areas of erythema and crusting on the bilateral forearms. There is a couple of areas on the forehead as well. MDM MDM MDM Narrative Medical decision making narrative: Patient presenting with rash consistent with contact dermatitis which would possibly be poison chavez. He does not have any other exposures. Patient is a type I diabetic. We discussed this as he wants steroid treatment for his rash. He states he has a constant glucose monitor and is able to dose his insulin without any issues. Patient placed on a prednisone taper. First dose given in ER. Impression: 1. Contact dermatitis Discharge Plan Triage Chief Complaint: Rash ED Provider: [place] Dx/Rx/DC Orders Instructions: ED Contact Dermatitis Prescriptions: New prednisone 10 mg tablet 10 mg PO DAILY Qty: 48 0RF Rx Instructions: 6 po qd x 3 days, 4 po qd x 3 days, 2 po qd x 3 days, 1 po qd x 3 days No Action (DME) FreeStyle Lite Strips Strip See Rx Instructions .Route Qty: 100 6RF Rx Instructions: 3x/day (DME) Dexcom G6 Catering Attendant Misc See Rx Instructions .Route Qty: 1 0RF Rx Instructions: As directed insulin aspart U-100 [Novolog U-100 Insulin aspart] 100 unit/mL solution 80 unit continuous subcutaneous infusion .continuous Qty: 72 1RF amlodipine 10 mg tablet 10 mg PO DAILY Qty: 90 1RF rosuvastatin 10 mg tablet 10 mg PO DAILY Qty: 90 1RF (DME) Dexcom G6 Transmitter Device See Rx Instructions .Route Qty: 1 1RF Rx Instructions: 1 q 90 days furosemide 40 mg tablet 80 mg PO DAILY (DME) lancing device with lancets [[employer] Delica Plus Lanc Dev] Kit See Rx Instructions .Route Qty: 100 1RF Rx Instructions: 4x/day (DME) pen needle, diabetic [BD Ultra-Fine Carol Pen Needle] 32 gauge x 5/32 needle See Rx Instructions .ROUTE .MEDSUPPLY Qty: 150 5RF Rx Instructions: 4 times daily alcohol swabs [BD Alcohol Swabs] Pads, Medicated 1 pad TOPICAL .4 times daily Qty: 200 5RF metoprolol succinate 25 mg tablet extended release 24 hr 25 mg PO DAILY Qty: 30 5RF (DME) Omnipod 5 G6 Pods (Gen 5) Cartridge See Rx Instructions .Route Qty: 30 1RF Rx Instructions: 1 pod q 72 hours (DME) Dexcom G6 Sensor Device See Rx Instructions .Route Qty: 9 1RF Rx Instructions: 1 sensor q 10 days Primary Care Provider: Ganta,Kristal Referrals: Kristal Luke MD [Primary Care Provider] - Print Language: Citizen [place] Disposition Disposition: Home, Self Care Discharge Date/Time: 08/17/23 16:58
[2023-08-17] MEDS: predniSONE 20 MG Tablet 60 MG PO (16:57)
== END 2023-08-17 16:58 | disposition home or self-care (01) ==
PROVIDERS: Emergency Provider Student in an Organized Health Care Education/Training Program; PCP Internal Medicine; Visit Provider Student in an Organized Health Care Education/Training Program
DX: L25.9 Unspecified contact dermatitis, unspecified cause (principal); N18.4 Chronic kidney disease, stage 4 (severe); E10.22 Type 1 diabetes mellitus with diabetic chronic kidney disease; Z79.4 Long term (current) use of insulin; Z96.41 Presence of insulin pump (external) (internal); Z79.899 Other long term (current) drug therapy; I12.9 Hypertensive chronic kidney disease with stage 1 through stage 4 chronic kidney disease, or unspecified chronic kidney disease
CPT/HCPCS: 99282

== ENCOUNTER → 2023-09-04 | Outpatient (CLI) | payer MEDICAID, SELFPAY ==
[2023-09-04 17:20] LABS: Phosphorus 6.2 mg/dL (2.5-4.9)
[2023-09-04 19:39] LABS: ALB/GLOB Ratio 0.9 RATIO (0.9-2.4); AST(SGOT) 14 U/L (15-37); Alanine Aminotransfer ALT/SGPT 25 U/L (16-61); Alkaline Phosphatase 65 U/L (45-117); Anion Gap 7 (5-15); BUN 57 mg/dL (7-18); BUN/Creat Ratio 12.1 RATIO (10-20); Calcium,Total 8.8 mg/dL (8.5-10.1); Chloride 108 mmol/L (98-107); EST Glomerular Filtration Rate 15 mL/min (>60); Est Glom Filt Rate - Afr Amer 18 mL/min (>60); Globulin 3.5 g/dL (2.2-4.2); Glucose 166 mg/dL (74-106); Potassium 5.2 mmol/L (3.5-5.1); Protein, Total 6.5 g/dL (6.4-8.2); Sodium Level 138 mmol/L (136-145)
== END | disposition home or self-care (01) ==
PROVIDERS: PCP Internal Medicine; Visit Provider Nurse Practitioner Family
DX: N18.6 End stage renal disease (principal)
CPT/HCPCS: 36415; 80053; 84100

== ENCOUNTER 2024-01-22 20:08 | Inpatient (IN) | payer MEDICAID, SELFPAY ==
[2024-01-22 20:09] VITALS: BP 159/88; PULSE 98; RESP 18; TEMP 36.6; O2SAT 100; BMI 29.5
[2024-01-22 21:30] LABS: Bedside Glucose 488 mg/dL (74-106)
[2024-01-22 21:41] LABS: Bedside Glucose 444 mg/dL (74-106)
[2024-01-22 21:48] LABS: Mucous, Urine 0 SEEN /hpf (<or=2+); Red Blood Cells-Urine 0 SEEN /hpf (0-5); Squamous Epithelial Cells - UA 0 SEEN /hpf (0-5); White Blood Cells 0 SEEN /hpf (0-5)
[2024-01-22 21:50] LABS: Color, Urine Yellow (Yellow); Glucose, Dipstick 1000 mg/dl (Normal); Ketone-Dipstick 15 mg/dl (Negative); Leukocyte Esterase-Dipstick Negative /ul (Negative); Nitrite-Dipstick Negative (Negative); Occult Blood-Urine 25 /ul (Negative); Protein-Dipstick 100 mg/dl (Negative); Specific Gravity, Urine 1.015 (1.002-1.030); Urine Bilirubin Dipstick Negative (Negative); Urine Clarity Clear (Clear); Urine Urobilinogen Normal (Normal)
[2024-01-22 22:02] LABS: Bacteria RARE /hpf (None Seen)
[2024-01-22 22:09] VITALS: BP 155/74
--- NOTE | 2024-01-22 22:24 | EKG12_ITS ---
Test Reason : DYSRHYTHMIA Blood Pressure : / mmHG Vent. Rate : 104 BPM Atrial Rate : 104 BPM P-R Int : 160 ms QRS Dur : 078 ms QT Int : 364 ms P-R-T Axes : 051 038 069 degrees QTc Int : 478 ms Sin[address] tachycardia Nonspecific ST abnormality Abnormal ECG Confirmed by MELISSA LACEY, DANIELLE ([id number]), website/blog editor ADRIANA MANJARREZ ([id number]) on 01/26/2024 9:20:05 AM Referred By: Confirmed By:DANIELLE TORRES MD
[2024-01-22] MEDS: 0.9% Normal Saline (1000mL) 1,000 ML 999 ML IV (22:34)
--- NOTE | 2024-01-22 22:36 | EDS_ITS ---
HPI History of Present Illness Chief Complaint: Hyperglycemia Informant: patient Onset/Context/Timing Onset: Today Context: Sudden Onset Timing: Continuous Quality: Aching Location: Upper back, neck, and bilateral shoulders Worsened by: Nothing Relieved by: Nothing Narrative Narrative: Patient presents with hyperglycemia that began today. Patient states she woke up this morning and noted that his sugar was high. Patient has been giving himself subcutaneous insulin throughout the day with no improvement. Patient states he changed his blood sugar sensor and his insulin pump with no change. Patient admits to some polydipsia. Patient denies any polyuria. Patient states he had some nausea and vomiting. Patient states he has some pain in his neck and upper back that he usually gets when he goes into DKA. Patient describes it as aching. Patient states nothing makes it better and nothing makes it worse. Patient admits to some decreased vision. Patient describes it as cloudy. Patient admits to subjective fevers and chills. [facility] Medical History Hypertension Pre-op testing ESRF (end stage renal failure) Stage 4 chronic kidney disease Diabetes mellitus type 1 Insulin pump titration Presence of insulin pump CKD (chronic kidney disease) Obesity Abscess Charcot foot due to diabetes mellitus Type 1 diabetes mellitus Acute kidney injury Home Medications ?Medication ?Instructions ?Recorded ?Last Taken ?Type blood sugar diagnostic (FreeStyle #100 ea 10/08/21 Unknown Rx Lite Strips) blood-glucose meter,continuous #1 ea 10/08/21 Unknown Rx (Dexcom G6 Behavior Clinician) lancing device with lancets kit #100 ea 11/26/21 Unknown Rx (OneTouch Delica Plus Lancing Device kit) pen needle, diabetic 32 gauge x #150 ea 02/26/22 Unknown Rx /32 (BD Ultra-Fine Carol Pen Needle) alcohol swabs (BD Alcohol Swabs) 1 pad topical .4 times daily #200 05/20/22 Unknown Rx ea furosemide 40 mg tablet 80 mg PO DAILY 07/30/23 08/01/23 History prednisone 10 mg tablet 10 mg PO DAILY #48 TABLETS 08/17/23 Unknown Rx insulin aspart U-100 100 unit/mL 80 unit (0.8 mL) continuous 08/18/23 Unknown Rx subcutaneous solution (Novolog subcutaneous infusion .continuous U-100 Insulin aspart) #72 mL rosuvastatin 10 mg tablet 10 mg PO DAILY #90 tabs 11/07/23 Unknown Rx amlodipine 10 mg tablet 10 mg PO DAILY #90 tabs 11/17/23 Unknown Rx metoprolol succinate 25 mg 25 mg PO DAILY #30 tabs 11/27/23 Unknown Rx tablet,extended release 24 hr insulin pump cart,automated,BT #30 ea 01/06/24 Unknown Rx blood-glucose sensor (Dexcom G6 #9 ea 01/16/24 Unknown Rx Sensor device) blood-glucose transmitter (Dexcom #1 ea 01/16/24 Unknown Rx G6 Transmitter device) Allergy/AdvReac Type Severity Reaction Status Date / Time No Known Allergies Allergy Verified 01/22/24 20:12 Family History Mother Diabetes Thyroid disorder Grandmother Diabetes Grandfather Diabetes Surgical History History of surgery on lower extremity Social History Smoking Status: Never smoker alcohol intake: never substance use type: does not use ROS ROS ED Constitutional Constitutional ED: Reports chills, fever(s) and subjective Eyes Eyes: Reports change in vision; Denies diplopia ENT ENT ED: Denies rhinorrhea or sore throat Cardiovascular Cardiovascular: Reports chest pain; Denies palpitations Respiratory/Chest Respiratory/Chest: Denies cough or dyspnea Gastrointestinal Gastrointestinal: Reports nausea and vomiting Genitourinary Genitourinary ED: Denies dysuria or hematuria Musculoskeletal Musculoskeletal: Reports back pain and neck pain Integumentary Denies abscess or rash Neurologic Neurologic: Denies headache(s) or weakness Endocrine Endocrinology: Reports polydipsia Allergic/Immunologic Allergic/Immunologic ED: Denies mouth swelling or urticaria EXAM Physical Exam Const Vital Signs: 01/22/24 20:09 01/22/24 21:25 01/22/24 22:09 Temperature 98 F Temperature Source Oral Pulse Rate 98 Respiratory Rate 18 Respiratory Effort Normal Non-Labored Respiratory Pattern Normal Blood Pressure 159/88 H 155/74 H Blood Pressure Mean 111 101 Pulse Ox 100 Oxygen Delivery Method Room Air Positive well nourished and well developed General Appearance ED: well developed and NAD HEENT Reports moist mucous membranes Neck supple and no JVD Resp normal respiratory effort and clear to auscultation bilaterally Cardio regular rhythm Rate: tachycardic GI non-tender and non-distended Palpation: soft Extremity normal to inspection Neuro oriented x3, CN's II-XII intact bilaterally and no sensory deficits noted Motor Exam: strength 5/5 throughout Psych mental status grossly normal MDM MDM MDM Narrative Medical decision making narrative: Differential diagnosis includes DKA, hyperosmolar hyperglycemic nonketotic state, hyperglycemia, acute on chronic kidney disease, pneumonia, and urinary tract infection. CBC will be obtained to assess for leukocytosis and anemia. Comprehensive metabolic profile will be obtained to assess for hepatic function, renal function, and electrolyte abnormality. Urinalysis will be obtained to assess for urinary tract infection and hematuria. Serum acetone will be obtained to assess for serum ketones. High-sensitivity troponin will be obtained to assess for cardiac ischemia. Chest x-ray will be obtained to assess for pneumonia and pneumothorax. EKG will be obtained to assess for cardiac dysrhythmia and cardiac ischemia. Lab Data Attestation: I reviewed the patient's lab results. Lab results narrative: CBC was reviewed. There is a mild leukocytosis of 11.9. There is mild anemia with a hemoglobin of 8.6 and hematocrit of 26.8. Platelets were normal. Basic metabolic profile showed a sodium of 130, chloride of 97. Potassium was normal at 4.4. CO2 was low at 15 and anion gap was elevated at 18. Glucose was 491. BUN was elevated at 80 and creatinine was 6.2. These are mildly increased from previous results. High-sensitivity troponin was elevated at 588. Urinalysis was reviewed. Glucose was 1000. Ketones were 15. There is no evidence of urinary tract infection or hematuria. Serum acetone was reviewed and was small. Labs: Laboratory Results - last 24 hr 01/22/24 01/22/24 01/22/24 20:30 20:38 21:23 WBC 11.9 H RBC 3.25 L Hgb 8.6 L Hct 26.8 L MCV 82.5 MCH 26.5 L MCHC 32.1 RDW Std Deviation 38.4 RDW Coeff of Marcella 12.7 Plt Count 340 MPV 9.6 Immature Gran % (Auto) 0.500 Neut % (Auto) 84.8 H Lymph % (Auto) 8.5 L [place] % (Auto) 5.5 Eos % (Auto) 0.1 Baso % (Auto) 0.6 Absolute Neuts (auto) 10.1 H Absolute Lymphs (auto) 1.01 Nucleated RBC % 0 Sodium 130 L Potassium 4.4 Chloride 97 L Carbon Dioxide 15.0 L Anion Gap 18 H BUN 80 H Creatinine 6.20 H Estim Creat Clear Calc 18.52 Est GFR (MDRD) Af Amer 13 L Est GFR (MDRD) Non-Af 11 L BUN/Creatinine Ratio 12.9 Glucose 491 H* Calcium 9.2 Total Bilirubin 0.40 AST 20 ALT 31 Alkaline Phosphatase 72 Troponin I High Sens 588 H* Total Protein 7.5 Albumin 3.7 Globulin 3.8 Albumin/Globulin Ratio 1.0 Urine Color Yellow Urine Clarity Clear Urine pH 6.0 Ur Specific [employer] 1.015 Urine Protein 100 H Urine Glucose (UA) 1000 H Urine Ketones 15 H Urine Occult Blood 25 H Urine Nitrite Negative Urine Bilirubin Negative Urine Urobilinogen Normal Ur Leukocyte Esterase Negative Urine RBC 0 SEEN Urine WBC 0 SEEN Ur Squamous Epith Cells 0 SEEN Urine Bacteria RARE Urine Mucus 0 SEEN Acetone Level POC Glucose 488 H* 444 H 01/22/24 22:20 WBC RBC Hgb Hct MCV MCH MCHC RDW Std Deviation RDW Coeff of Marcella Plt Count MPV Immature Gran % (Auto) Neut % (Auto) Lymph % (Auto) [place] % (Auto) Eos % (Auto) Baso % (Auto) Absolute Neuts (auto) Absolute Lymphs (auto) Nucleated RBC % Sodium Potassium Chloride Carbon Dioxide Anion Gap BUN Creatinine Estim Creat Clear Calc Est GFR (MDRD) Af Amer Est GFR (MDRD) Non-Af BUN/Creatinine Ratio Glucose Calcium Total Bilirubin AST ALT Alkaline Phosphatase Troponin I High Sens Total Protein Albumin Globulin Albumin/Globulin Ratio Urine Color Urine Clarity Urine pH Ur Specific [employer] Urine Protein Urine Glucose (UA) Urine Ketones Urine Occult Blood Urine Nitrite Urine Bilirubin Urine Urobilinogen Ur Leukocyte Esterase Urine RBC Urine WBC Ur Squamous Epith Cells Urine Bacteria Urine Mucus Acetone Level SMALL H POC Glucose ABG Data Attestation: I personally reviewed and interpreted this ABG as follows: Interpretation: Venous blood gas was reviewed. pH was 7.35, bicarb was 15, CO2 was 16. ABG results: ABG 01/22/24 22:52 Specimen Type ARMANI Sample Site Not entered VBG pH 7.35 VBG pO2 36 VBG HCO3 15 L VBG Total CO2 16 L VBG O2 Sat (Calc) 68 VBG Base Excess -10 L POC Mix VBG pCO2 Pt Tmp 28.2 L O2 Delivery Device Room Air Radiography Chest X-Ray - ED: 2 View, Read by ED Physician, Read by Radiologist and No Acute Disease Diagnostic Testing: Clinical Impression(s) from Imaging Studies Chest X-Ray 01/22/24 22:45 IMPRESSION: No radiographic evidence of acute cardiopulmonary disease. Electronically Signed: Jorge Hoover MD at 23:34 EDT , PA and lateral chest x-ray was obtained. There are 2 views. On my independent interpretation, lung solis are clear. There is normal cardiac silhouette. Bony thorax is normal. There is no acute process noted. Radiologist also interpreted the x-ray and agrees. EKG Initial EKG: Attestation: I personally reviewed and interpreted this EKG as follows: Interpretation: Sinus Tachycardia (104) and Non-Specific ST Changes Comments: EKG was obtained. On my independent interpretation, it showed a sinus tachycardia with a rate of 104. IN interval, QRS interval, and QTc intervals were all normal. [place] was normal. There are nonspecific ST-T wave changes. Prior EKG tracings: available for review Prior: Unchanged (07/01/2023) Treatment and Re-Evaluation :: Patient was given IV fluids. BGT here initially was 488. Patient was advised of his findings. Patient was started on insulin drip. Patient was started on heparin drip. Case was discussed with the hospitalist. He will admit the patient to ICU. Patient understood and was agreeable with the plan. All questions were answered. Critical Care Time Critical Care Time: Yes Critical care time (excluding procedures): 30-74 minutes (35), Including time spent:, Discussing w/Patient &/or Family/Certified Medical Technician Assistant, Arranging Admission or Transfer and Performing Direct Patient Care at Bedside Discharge Plan Triage Chief Complaint: Hyperglycemia ED Provider: Garrison Vera Dx/Rx/DC Orders Clinical Impression: Diabetic ketoacidosis, DM type 1 (diabetes mellitus, type 1), Hypertension, Elevated troponin, Acute kidney injury superimposed on chronic kidney disease Prescriptions: No Action (DME) FreeStyle Lite Strips Strip See Rx Instructions .Route Qty: 100 6RF Rx Instructions: 3x/day (DME) Dexcom G6 Behavior Clinician Misc See Rx Instructions .Route Qty: 1 0RF Rx Instructions: As directed furosemide 40 mg tablet 80 mg PO DAILY prednisone 10 mg tablet 10 mg PO DAILY Qty: 48 0RF Rx Instructions: 6 po qd x 3 days, 4 po qd x 3 days, 2 po qd x 3 days, 1 po qd x 3 days (DME) lancing device with lancets [BRAIN Plus Lanc Dev] Kit See Rx Instructions .Route Qty: 100 1RF Rx Instructions: 4x/day (DME) pen needle, diabetic [BD Ultra-Fine Carol Pen Needle] 32 gauge x 5/32 needle See Rx Instructions .ROUTE .MEDSUPPLY Qty: 150 5RF Rx Instructions: 4 times daily alcohol swabs [BD Alcohol Swabs] Pads, Medicated 1 pad TOPICAL .4 times daily Qty: 200 5RF insulin aspart U-100 [Novolog U-100 Insulin aspart] 100 unit/mL solution 80 unit continuous subcutaneous infusion .continuous Qty: 72 1RF rosuvastatin 10 mg tablet 10 mg PO DAILY Qty: 90 1RF amlodipine 10 mg tablet 10 mg PO DAILY Qty: 90 1RF metoprolol succinate 25 mg tablet extended release 24 hr 25 mg PO DAILY Qty: 30 5RF (DME) insulin pump cart,automated,BT Cartridge See Rx Instructions .Route Qty: 30 1RF Rx Instructions: 1 pod q 72 hours (DME) Dexcom G6 Sensor Device See Rx Instructions .Route Qty: 9 1RF Rx Instructions: 1 sensor q 10 days (DME) Dexcom G6 Transmitter Device See Rx Instructions .Route Qty: 1 1RF Rx Instructions: 1 q 90 days Primary Care Provider: Care Physician,No Primary Referrals: Care Physician,No Primary [Primary Care Provider] - Print Language: Bulgarian Disposition Disposition: Acute Care Hospital [facility]
--- NOTE | 2024-01-22 22:45 | RAD_ITS ---
INDICATION: Chest pain EXAMINATION/TECHNIQUE: X-RAY - XR Chest 2 Views COMPARISON: July 01, 2023. FINDINGS: LINES/DEVICES: None. LUNGS: No consolidation, edema or effusion. No pneumothorax. MEDIASTINUM AND CARDIOVASCULAR STRUCTURES: Cardiac silhouette not enlarged. BONES AND SOFT TISSUES: Unremarkable. RAD/Chest PA and Lateral IMPRESSION: No radiographic evidence of acute cardiopulmonary disease. Electronically Signed: Jorge Hoover MD at 23:34 EDT ,
[2024-01-22 22:48] LABS: Absolute Lymphocyte Count 1.01 X10^3/uL (0.83-4.51); Absolute Neutrophil Count 10.1 X10^3/uL (2.0-7.7); Basophil# 0.07 X10^3/uL; Basophil% 0.6 % (0-1); Eosinophil# 0.01 X10^3/uL; Eosinophils% 0.1 % (0-5); Hematocrit 26.8 % (40-54); Hemoglobin 8.6 g/dL (13.0-16.5); Lymphocyte # 1.01 X10^3/ul (0.83-4.51); Lymphocyte % 8.5 % (19-41); Mean Corp Hgb Conc 32.1 g/dL (32-36); Mean Corpuscular Hgb 26.5 pg (27.0-32.0); Mean Corpuscular Volume 82.5 fL (80-94); Mean Platelet Vol. 9.6 fl (6.2-12.0); Monocyte# 0.66 X10^3/uL; Monocyte% 5.5 % (0-10); NRBC Flagged by Analyzer 0 % (0-5); Neutrophil # 10.13 X10^3/uL (2.7-7.7); Neutrophil % 84.8 % (47-70); Platelet Count 340 K/mm3 (150-450); RBC Distribution Width CV 12.7 % (11.6-14.6); RBC Distribution Width SD 38.4 fl (35.1-43.9); Red Blood Count 3.25 M/mm3 (4.6-6.2); White Blood Count 11.9 K/mm3 (4.4-11.0)
[2024-01-22 22:55] LABS: Blood Gas Specimen Type VEN; O2 Delivery Device Room Air; SITE Not entered; VBG BASE EXCESS -10 mmol/L (-1.0-3.5); VBG Bicarbonate 15 mmol/L (22-26); VBG PO2 36 mmHg (25-40); VBG SO2 68 % (50-70); VBG TCO2 16 mmol/L (23-33); VBG pCO2 28.2 mmHg (41-51); VBG pH 7.35 (7.32-7.42)
[2024-01-22 23:16] LABS: AST(SGOT) 20 U/L (15-37); Alanine Aminotransfer ALT/SGPT 31 U/L (16-61); Albumin, Serum 3.7 g/dL (3.2-5.0); Alkaline Phosphatase 72 U/L (45-117); Anion Gap 18 (5-15); BUN 80 mg/dL (7-18); BUN/Creat Ratio 12.9 RATIO (10-20); Calcium,Total 9.2 mg/dL (8.5-10.1); Chloride 97 mmol/L (98-107); EST Glomerular Filtration Rate 11 mL/min (>60); Est Glom Filt Rate - Afr Amer 13 mL/min (>60); Estimated Creatinine Clearance 18.52 ml/min; Globulin 3.8 g/dL (2.2-4.2); Glucose 491 mg/dL (74-106); Potassium 4.4 mmol/L (3.5-5.1); Protein, Total 7.5 g/dL (6.4-8.2); Sodium Level 130 mmol/L (136-145); Troponin-I HS 588 pg/mL (3.0-78.0)
--- NOTE | 2024-01-22 23:43 | HP.PCM.HOS_ITS ---
[facility] - General General Date of Admission: 01/23/24 Date of Service: 01/22/24 Chief Complaint: Pain in Chest, Upper Back, Neck and Shoulders with Hyperglycemia. HPI Narrative LAURIE GONZALES, is a 43 with a past medical history of essential hypertension, hyperlipidemia, overweight; with BMI of 29.5 this admission, DM-1; uncontrolled with Hyperglycemia and history of DKA in spite of having insulin pump in-place, history of Charcot foot, history of microalbuminuria, CKD; stage IV, history of vitamin D deficiency, history of influenza A, history of RLE surgery and history of anxiety who presents to [facility] ER complaining of pain in his chest, upper back, neck and shoulder with hyperglycemia. Mr. Gonzales reports his symptoms began early this morning after he woke up and noted that his blood glucose was sharply elevated in the 400 mg/dL range. He then gave himself his normal subcutaneous insulin regimen through his pump but without improvement. He then changed his blood glucose sensor and his insulin pump with continued hyperglycemia followed by subjective fever and chills. He also admits to polydipsia and decreased visual acuity with 'cloudiness' of his vision complicated by nausea and vomiting with bilious emesis in addition to a persistent chest pain and moderate aching pain in his upper back and neck with nothing making the pain better or worse that is typical of his previous bouts of DKA. He denies associated SOB, cough, runny nose, sore throat, ear pain or headache but he does admit to increased life stress since he recently has his AV fistula in his LUE he informed his job and they allegedly summarily fired him because they thought he would frequently miss work to attend HD. In addition to that stress he has been working two jobs and getting much less sleep - but he states he did not feel sick until today. In the ER he was noted to have laboratory evidence of DKA: with Hyperglycemia of 491 mg/dL with an anion gap of 18 and small serum acetone complicated by NSTEMI; evidenced by sharply elevated troponin of 588 pg/mL present on admission compounded by ANN; in the setting of CKD; stage IV with increased serum creatinine of 6.2 mg/dL and BUN of 80 mg/dL present on admission (up from his baseline of ~4.7 mg/dL and BUN of ~57 mg/dL last admission) along with Leukocytosis of 11.9K present on admission that is presumed to be reactive in nature and he was then admitted to the ICU for treatment under the DKA and NSTEMI protocols for a stay that is expected to extend beyond 2 midnights. [facility] Medical History (Updated 01/23/24 @ 06:[address] Venkata Vargas DO) Acute kidney injury Hypertension Pre-op testing ESRF (end stage renal failure) Stage 4 chronic kidney disease Diabetes mellitus type 1 Insulin pump titration Presence of insulin pump CKD (chronic kidney disease) Obesity Abscess Charcot foot due to diabetes mellitus Type 1 diabetes mellitus Home Medications ?Medication ?Instructions ?Recorded ?Last Taken ?Type blood sugar diagnostic (FreeStyle #100 ea 10/08/21 Unknown Rx Lite Strips) blood-glucose meter,continuous #1 ea 10/08/21 Unknown Rx (Dexcom G6 Shipwright Helper) lancing device with lancets kit #100 ea 11/26/21 Unknown Rx (Digital Trowel Delica Plus Lancing Device kit) pen needle, diabetic 32 gauge x #150 ea 02/26/22 Unknown Rx 5/32 (BD Ultra-Fine Carol Pen Needle) alcohol swabs (BD Alcohol Swabs) 1 pad topical .4 times daily #200 05/20/22 Unknown Rx ea furosemide 40 mg tablet 80 mg PO BID 07/30/23 08/01/23 History insulin aspart U-100 100 unit/mL 80 unit (0.8 mL) continuous 08/18/23 Unknown Rx subcutaneous solution (Novolog subcutaneous infusion .continuous U-100 Insulin aspart) #72 mL rosuvastatin 10 mg tablet 10 mg PO DAILY #90 tabs 11/07/23 Unknown Rx amlodipine 10 mg tablet 10 mg PO DAILY #90 tabs 11/17/23 Unknown Rx metoprolol succinate 25 mg 25 mg PO DAILY #30 tabs 11/27/23 Unknown Rx tablet,extended release 24 hr insulin pump cart,automated,BT #30 ea 01/06/24 Unknown Rx blood-glucose sensor (Dexcom G6 #9 ea 01/16/24 Unknown Rx Sensor device) blood-glucose transmitter (Dexcom #1 ea 01/16/24 Unknown Rx G6 Transmitter device) Allergy/AdvReac Type Severity Reaction Status Date / Time No Known Allergies Allergy Verified 01/22/24 20:12 Family History Mother Diabetes Thyroid disorder Grandmother Diabetes Grandfather Diabetes Surgical History History of surgery on lower extremity Social History Smoking Status: Never smoker alcohol intake: never substance use type: does not use ROS ROS Narrative Review of Systems: Constitutional: Patient admits to subjective fever and chills. Eyes: Patient admits to cloudy vision but denies discharge from eyes. ENT: Patient denies runny nose, sore throat or ear pain. Resp: Patient denies SOB or cough. CV: Patient admits to chest pain as per HPI. He denies palpitations or heart racing. GI: Patient admits to nausea and vomiting with bilious emesis as per HPI. : Patient denies dysuria or hematuria. MSK: Patient admits to aching pain in his neck, upper back and shoulders that is a harbinger of his previous bouts of DKA. Skin: Patient denies abscess or rash. Psych: Patient admits to severe anxiety after being fired from his job due to potentially needing HD - but he denies SI or HI. Neuro: Patient denies headache or paresthesias but he does admit to cloudiness of his vision. Allergy: Patient denies lip swelling, tongue swelling urticaria. Hematology: Patient denies easy bleeding or easy bruisability. Endocrinology: Patient admits to polydipsia but he denies polyuria or polyphagia. 14 point ROS otherwise negative except for positives noted above in HPI. Vital Signs Vital Signs Vital Signs: 01/22/24 20:09 01/22/24 21:25 01/22/24 22:09 Temperature 98 F Temperature Source Oral Pulse Rate 98 Respiratory Rate 18 Respiratory Effort Normal Non-Labored Respiratory Pattern Normal Blood Pressure 159/88 H 155/74 H Blood Pressure Mean 111 101 Pulse Ox 100 Oxygen Delivery Method Room Air Weight Weight: 211 lb 4.8 oz Body Mass Index (BMI) 29.5 Physical Exam Const alert, oriented x3, no apparent distress and average body habitus General Appearance: cooperative HEENT normocephalic, head/scalp atraumatic and hearing grossly normal bilaterally HEENT Narrative: Mucous membranes dry. Eyes PERRL and EOMs intact bilaterally Neck no lymphadenopathy and supple Resp normal respiratory effort, no retractions, no use of accessory muscles and clear to auscultation bilaterally Cardio regular rate and regular rhythm GI normal to inspection, nondistended, normoactive bowel sounds, soft to palpation, non-tender and non-distended Extremity normal to inspection, full ROM and no clubbing, cyanosis or edema Skin Skin Narrative: Patient has no evidence of rash, abscess or jaundice. Neuro oriented x3, CN's II-XII intact bilaterally, moves all extremities and no focal motor deficits Sensorium / Orientation: awake, alert, oriented to person, oriented to place and oriented to time Speech: speech normal Psych affect normal Results Medical Records Data Attestation: I reviewed the patient's medical records Lab / Micro Data Attestation: I reviewed the patient's lab results. 01/23/24 04:45 01/23/24 04:45 Labs: Laboratory Results - last 24 hr 01/22/24 20:30: WBC 11.9 H, RBC 3.25 L, Hgb 8.6 L, Hct 26.8 L, MCV 82.5, MCH 26.5 L, MCHC 32.1, RDW Std Deviation 38.4, RDW Coeff of Marcella 12.7, Plt Count 340, MPV 9.6, Immature Gran % (Auto) 0.500, Neut % (Auto) 84.8 H, Lymph % (Auto) 8.5 L, [place] % (Auto) 5.5, Eos % (Auto) 0.1, Baso % (Auto) 0.6, Absolute Neuts (auto) 10.1 H, Absolute Lymphs (auto) 1.01, Nucleated RBC % 0, Sodium 130 L, Potassium 4.4, Chloride 97 L, Carbon Dioxide 15.0 L, Anion Gap 18 H, BUN 80 H, Creatinine 6.20 H, Estim Creat Clear Calc 18.52, Est GFR (MDRD) Af Amer 13 L, Est GFR (MDRD) Non-Af 11 L, BUN/Creatinine Ratio 12.9, Glucose 491 H*, Calcium 9.2, Total Bilirubin 0.40, AST 20, ALT 31, Alkaline Phosphatase 72, Troponin I High Sens 588 H*, Total Protein 7.5, Albumin 3.7, Globulin 3.8, Albumin/Globulin Ratio 1.0 01/22/24 20:38: Urine Color Yellow, Urine Clarity Clear, Urine pH 6.0, Ur Specific [place] 1.015, Urine Protein 100 H, Urine Glucose (UA) 1000 H, Urine Ketones 15 H, Urine Occult Blood 25 H, Urine Nitrite Negative, Urine Bilirubin Negative, Urine Urobilinogen Normal, Ur Leukocyte Esterase Negative, Urine RBC 0 SEEN, Urine WBC 0 SEEN, Ur Squamous Epith Cells 0 SEEN, Urine Bacteria RARE, Urine Mucus 0 SEEN, POC Glucose 488 H* 01/22/24 21:23: POC Glucose 444 H 01/22/24 22:20: Acetone Level SMALL H ABG Data ABG results: ABG 01/22/24 22:52 Specimen Type ARMANI Sample Site Not entered VBG pH 7.35 VBG pO2 36 VBG HCO3 15 L VBG Total CO2 16 L VBG O2 Sat (Calc) 68 VBG Base Excess -10 L POC Mix VBG pCO2 Pt Tmp 28.2 L O2 Delivery Device Room Air Imaging Radiology Impression Chest X-Ray 01/22/24 22:45 IMPRESSION: No radiographic evidence of acute cardiopulmonary disease. Electronically Signed: Jorge Hoover MD at 23:34 EDT Reading Location ID and State: [facility] / [place] Tel , Service support , Assessment & Plan Assessment/Plan (1) Diabetic ketoacidosis: QUALIFIERS: Diabetes mellitus complication detail: without coma D iabetes mellitus type: type 1 Qualified Code(s): E10.10 - Type 1 diabetes mellitus with ketoacidosis without coma (2) Elevated troponin: (3) NSTEMI, initial episode of care: (4) Acute kidney injury superimposed on chronic kidney disease: (5) DM type 1 (diabetes mellitus, type 1): QUALIFIERS: Diabetes mellitus complication status: with unspecified complications Qualified Code(s): E10.8 - Type 1 diabetes mellitus with unspecified complications (6) Congestive heart failure of unknown etiology: (7) Respiratory insufficiency: (8) Overweight (BMI 25.0-29.9): PLAN: Plan 1. DKA: with Hyperglycemia of 491 mg/dL with an anion gap of 18 and small serum acetone in the setting of known DM-1; uncontrolled with Hyperglycemia and history of DKA in spite of having insulin pump in-place - Admit to ICU for treatment under the DKA protocol. Keep strict NPO except medications and vigorously volume resuscitate plus check BMP q. [address] on ICU electrolyte replacement protocol. Start Protonix 40 mg IV daily plus prn IV Zofran for nausea and vomiting plus prn Phenergan IM for breakthrough GI symptoms. 2. NSTEMI; evidenced by sharply elevated troponin of 588 pg/mL present on admission with corroborating chest pain complicating #1 - Continue IV Heparin per cardiac protocol plus add ECASA RC, Plavix and increase dose of Rosuvastatin. Serialized troponin show increase to 2,250 pg/mL confirming suspicion of NSTEMI. Check echocardiogram to evaluate LVEF. Finally, we will consult [facility] to see this patient on-rounds in the AM for further recommendations regarding LHC this admission with help appreciated in advance. 3. ANN; in the setting of CKD; stage IV and microalbuminuria with increased serum creatinine of 6.2 mg/dL and BUN of 80 mg/dL present on admission (up from his baseline of ~4.7 mg/dL and BUN of ~57 mg/dL last admission) compounding the cascading negative impacts of #1 & #2 - Give copious IVF, avoid potentially nephrotoxic agents and follow strict I's & O's. We will recheck renal indices daily for improvement. Finally, because of the severity of his renal failure and the medical complexity of his case we will consult nephrology to see this patient on-rounds in the AM to help plan for eventual HD with LUE AV fistula already in place. 4. Acute Respiratory Insufficiency attributable to #1 - #3 with elevated BNP of 1,063.7 pg/mL present on admission concerning for AE CHF due to #2 & #3 - Wean supplemental oxygen as tolerated with patient currently on 6L NC. Give Bumex 1 mg IV once and serialize BNP. Echocardiogram pending for #2. 5. History of anxiety; recently exacerbated by increased life stress from recently losing one job and then working 2 others with significantly decreased sleep setting off chain reaction outlined in #1- #5 - Give IM Vistaril prn for breakthrough symptoms. 6. Leukocytosis of 11.9K present on admission that is presumed to be reactive in nature attributable to #1 - #5 - Noted. Check CBC daily to follow trend. UA negative and CXR negative with no obvious signs of infection at this time. 7. Essential hypertension - Give IV Hydralazine prn for systolic blood pressure > 160 mmHg. 8. Hyperlipidemia - Increase statin dose due to #2 and check Lipid Profile. 9. Overweight; with BMI of 29.5 this admission - Weight loss will be recommended. Check TSH. This complicates his case and may hamper his recovery. 10. History of Charcot foot - Noted. 11. History of vitamin D deficiency - Noted. Check vitamin D levels. 12. History of influenza A - Noted. 13. History of RLE surgery - Noted. 14. DVT/GI prophylaxis - Patient already on IV Heparin as per cardiac protocol for #2 which will be continued. Protonix 40 mg IV daily. Total time: Approximately (but not less than) 75 minutes. Charges/Coding Visit Charges Inpatient E&M: 21577 Init Hosp L3
[2024-01-22] MEDS: Insulin Lispro 100 UNIT in 0.9% Normal Saline (100mL Bag) 99 ML 9.6 UNIT CONT INF (23:57)
[2024-01-22] MEDS: Aspirin 81 MG TAB.CHEW 324 MG PO (23:57)
[2024-01-22] MEDS: Ondansetron 4 MG/2 ML Vial IV (23:57)
[2024-01-23] VITALS (47 sets, daily range): BP systolic 103–197; BP diastolic 61–108; PULSE 83–109; RESP 11–23; TEMP 36.3–37; O2SAT 76–100; BMI 29.4; BMI 29.5; BMI 29.2
[2024-01-23 00:23] LABS: Bedside Glucose 340 mg/dL (74-106)
[2024-01-23 00:51] LABS: International Normalized Ratio 1.1; Partial Thromboplast Time 27.1 Seconds (24.1-36.2); Prothrombin Time (Protime)PT. 13.9 SECONDS (11.7-14.9)
--- NOTE | 2024-01-23 00:54 | ED.RN ---
Unable to obtain second IV after multiple attempts by 3 RNs. Insulin and Heparin can not be ran together per clinical pharmacology resource. Dr Boswell notified. He states to send patent up to ICU with one IV and have ICU staff attempt to obtain IV access. If ICU is unable to obtain another IV heparin order will be switched to lovenox.
[2024-01-23 01:20] LABS: Bedside Glucose 240 mg/dL (74-106)
[2024-01-23 01:57] LABS: Hemoglobin A1c 7.9 % (3.8-5.6)
[2024-01-23] MEDS: Dext 5%-0.45% NS 1,000 ML 100 ML IV (02:03)
[2024-01-23] MEDS: Clopidogrel Bisulfate 75 MG Tablet PO (02:04)
[2024-01-23] MEDS: Heparin Injection (Vial) 5,000 UNIT/ML VIAL 4000 UNIT IV (02:20)
[2024-01-23] MEDS: HEPARIN/D5w 25,000 UNITS 25,000 UNITS/250 ML IV.SOLN. 10 UNITS CONT INF (02:21)
[2024-01-23 02:22] LABS: Anion Gap 12 (5-15); BUN 79 mg/dL (7-18); BUN/Creat Ratio 13.4 RATIO (10-20); Calcium,Total 9.2 mg/dL (8.5-10.1); Chloride 104 mmol/L (98-107); Cholesterol 132 mg/dL (200); Creatinine, Serum 5.88 mg/dL (0.70-1.30); EST Glomerular Filtration Rate 11 mL/min (>60); Est Glom Filt Rate - Afr Amer 14 mL/min (>60); Estimated Creatinine Clearance 19.51 ml/min; Glucose 216 mg/dL (74-106); High Density Lipoprotein 69 mg/dL; Magnesium 2.5 mg/dL (1.6-2.6); Potassium 4.8 mmol/L (3.5-5.1); Sodium Level 134 mmol/L (136-145); Triglycerides 72 mg/dL; Very Low Density Lipoprotein 14 mg/dL (5-40)
[2024-01-23 02:23] LABS: Troponin-I HS 2250 pg/mL (3.0-78.0)
[2024-01-23 02:44] LABS: Bedside Glucose 223 mg/dL (74-106)
[2024-01-23 03:21] LABS: Allen Test Positive; Base Excess -6 mmol/L (-2 to +2); Bicarbonate 18.4 mmol/L (22-26); Blood Gas Specimen Type ART; Mode Not entered; O2 Delivery Device Cannula; PO2 63 mmHG (75-100); SITE R Radial; SO2 92 % (95-99); Total Carbon Dioxide 19 mmol/L; pCO2 29.4 mmHg (35-45)
[2024-01-23] MEDS: Nitroglycerin Oint 1 INCH PACKET 2 INCH TD (04:46)
[2024-01-23 05:02] LABS: Absolute Lymphocyte Count 1.42 X10^3/uL (0.83-4.51); Absolute Neutrophil Count 11.2 X10^3/uL (2.0-7.7); Basophil# 0.06 X10^3/uL; Basophil% 0.4 % (0-1); Eosinophil# 0.05 X10^3/uL; Eosinophils% 0.3 % (0-5); Hematocrit 29.8 % (40-54); Lymphocyte # 1.42 X10^3/ul (0.83-4.51); Lymphocyte % 9.9 % (19-41); Mean Corp Hgb Conc 33.6 g/dL (32-36); Mean Corpuscular Hgb 26.6 pg (27.0-32.0); Mean Corpuscular Volume 79.3 fL (80-94); Monocyte# 1.54 X10^3/uL; Monocyte% 10.8 % (0-10); NRBC Flagged by Analyzer 0 % (0-5); Neutrophil # 11.17 X10^3/uL (2.7-7.7); Neutrophil % 78.3 % (47-70); POSITIVE DIFFERENTIAL YES; Platelet Count 270 K/mm3 (150-450); RBC Distribution Width CV 12.7 % (11.6-14.6); RBC Distribution Width SD 36.2 fl (35.1-43.9); Red Blood Count 3.76 M/mm3 (4.6-6.2); White Blood Count 14.3 K/mm3 (4.4-11.0)
[2024-01-23 05:14] LABS: D-Dimer Quantitative (DVT/PE) 0.45 FEU/ug/m (0.27-0.49)
[2024-01-23 05:15] LABS: Anion Gap 11 (5-15); BUN 80 mg/dL (7-18); Calcium,Total 8.8 mg/dL (8.5-10.1); Chloride 107 mmol/L (98-107); Creatinine, Serum 5.72 mg/dL (0.70-1.30); EST Glomerular Filtration Rate 12 mL/min (>60); Est Glom Filt Rate - Afr Amer 14 mL/min (>60); Estimated Creatinine Clearance 20.05 ml/min; Glucose 114 mg/dL (74-106); Potassium 3.9 mmol/L (3.5-5.1); Sodium Level 137 mmol/L (136-145)
[2024-01-23 05:15] LABS: Bedside Glucose 158 mg/dL (74-106)
[2024-01-23 05:15] LABS: Bedside Glucose 129 mg/dL (74-106)
[2024-01-23 05:17] LABS: BNP,B-Type NATRIURETIC PEPTIDE 1063.7 pg/mL (0-100)
[2024-01-23 05:59] LABS: Differential Indicated SCAN CRITERIA MET
[2024-01-23 06:19] LABS: Differential Comment SCANNED
[2024-01-23 06:47] LABS: Amphetamine Urine VISTA NEGATIVE (<1000 ng/mL); Barbiturate Urine VISTA NEGATIVE (< 200 ng/mL); Benzodiazepine Urine VISTA NEGATIVE (< 200 ng/mL); Cocaine Urine VISTA NEGATIVE (< 300 ng/mL); Ecstacy Urine VISTA NEGATIVE (< 500 ng/mL); Methadone Urine VISTA NEGATIVE (< 300 ng/mL); PCP Urine VISTA NEGATIVE (< 25 ng/mL); THC Urine VISTA NEGATIVE (< 50 ng/mL); Vista UDS pH Range 6
[2024-01-23 07:27] LABS: Bedside Glucose 105 mg/dL (74-106)
[2024-01-23 07:27] LABS: Bedside Glucose 97 mg/dL (74-106)
--- NOTE | 2024-01-23 07:34 | PN.HOSP_ITS ---
Reason for Visit Reason for Visit: Diagnoses Type 1 diabetes mellitus with ketoacidosis without coma (01/23/24) Type 1 diabetes mellitus with unspecified complications (01/23/24) Other specified diabetes mellitus with ketoacidosis without coma (01/23/24) Overweight (01/23/24) Non-ST elevation (NSTEMI) myocardial infarction (01/23/24) Heart failure, unspecified (01/23/24) Acute kidney failure, unspecified (01/23/24) Chronic kidney disease, unspecified (01/23/24) Other abnormalities of breathing (01/23/24) Other specified abnormal findings of blood chemistry (01/23/24) Subjective Subjective Required increased oxygen this AM (up to 6l/m). After heart cath, was very short of breath and placed on BiPAP. Objective Data Objective Data Vital Signs: Vital Signs Temp Pulse Resp BP Pulse Ox O2 Del Method O2 Flow Rate 36.9 C 88 18 124/79 H 97 Nasal Cannula 6 01/23/24 04:00 01/23/24 07:00 01/23/24 07:00 01/23/24 07:00 01/23/24 07:00 01/23/24 07:00 01/23/24 07:00 Oxygen Flow Rate (L/min) 6 Oxygen Delivery Method Nasal Cannula Weight: 95.6 kg Body Mass Index (BMI) 29.5 Intake & Output: Intake and Output for Last 24 Hours 01/21/24 01/22/24 01/23/24 23:59 23:59 23:59 Intake Total 1000 / 1000 24..08 Output Total 500 / 500 Balance 1000 / 1000 -475.92 / -475.92 Lab / Micro Data 01/23/24 04:45 01/23/24 09:00 Labs: Laboratory Results - last 24 hr 01/22/24 20:30: WBC 11.9 H, RBC 3.25 L, Hgb 8.6 L, Hct 26.8 L, MCV 82.5, MCH 26.5 L, MCHC 32.1, RDW Std Deviation 38.4, RDW Coeff of Marcella 12.7, Plt Count 340, MPV 9.6, Immature Gran % (Auto) 0.500, Neut % (Auto) 84.8 H, Lymph % (Auto) 8.5 L, [place] % (Auto) 5.5, Eos % (Auto) 0.1, Baso % (Auto) 0.6, Absolute Neuts (auto) 10.1 H, Absolute Lymphs (auto) 1.01, Nucleated RBC % 0, PT 13.9, INR 1.1, APTT 27.1, Sodium 130 L, Potassium 4.4, Chloride 97 L, Carbon Dioxide 15.0 L, Anion Gap 18 H, BUN 80 H, Creatinine 6.20 H, Estim Creat Clear Calc 18.52, Est GFR (MDRD) Af Amer 13 L, Est GFR (MDRD) Non-Af 11 L, BUN/Creatinine Ratio 12.9, G lucose 491 H*, Hemoglobin A1c 7.9 H, Calcium 9.2, Total Bilirubin 0.40, AST 20, ALT 31, Alkaline Phosphatase 72, Troponin I High Sens 588 H*, Total Protein 7.5, Albumin 3.7, Globulin 3.8, Albumin/Globulin Ratio 1.0 01/22/24 20:38: Urine Color Yellow, Urine Clarity Clear, Urine pH 6.0, Ur Specific [place] 1.015, Urine Protein 100 H, Urine Glucose (UA) 1000 H, Urine Ketones 15 H, Urine Occult Blood 25 H, Urine Nitrite Negative, Urine Bilirubin Negative, Urine Urobilinogen Normal, Ur Leukocyte Esterase Negative, Urine RBC 0 SEEN, Urine WBC 0 SEEN, Ur Squamous Epith Cells 0 SEEN, Urine Bacteria RARE, Urine Mucus 0 SEEN, POC Glucose 488 H* 01/22/24 21:23: POC Glucose 444 H 01/22/24 22:20: Acetone Level SMALL H 01/22/24 23:56: POC Glucose 340 H 01/23/24 01:00: POC Glucose 240 H 01/23/24 01:31: POC Glucose 223 H 01/23/24 01:40: Sodium 134 L, Potassium 4.8, Chloride 104, Carbon Dioxide 18.0 L , Anion Gap 12, BUN 79 H, Creatinine 5.88 H, Estim Creat Clear Calc 19.51, Est GFR (MDRD) Af Amer 14 L, Est GFR (MDRD) Non-Af 11 L, BUN/Creatinine Ratio 13.4, Glucose 216 H, Calcium 9.2, Magnesium 2.5, Troponin I High Sens 2250 H*, Triglycerides 72, Cholesterol 132, LDL Cholesterol 49, VLDL Cholesterol 14, HDL Cholesterol 69, TSH 1.100 01/23/24 02:28: POC Glucose 158 H 01/23/24 03:30: POC Glucose 129 H 01/23/24 04:45: WBC 14.3 H, RBC 3.76 L, Hgb 10.0 L, Hct 29.8 L, MCV 79.3 L, MCH 26.6 L, MCHC 33.6, RDW Std Deviation 36.2, RDW Coeff of Marcella 12.7, Plt Count 270, MPV 9.0, Immature Gran % (Auto) 0.300, Neut % (Auto) 78.3 H, Lymph % (Auto) 9.9 L, [place] % (Auto) 10.8 H, Eos % (Auto) 0.3, Baso % (Auto) 0.4, Absolute Neuts (auto) 11.2 H, Absolute Lymphs (auto) 1.42, Nucleated RBC % 0, Differential Comment SCANNED, Diff Path Review July, D-Dimer Quant (PE/DVT) 0.45, Sodium 137, Potassium 3.9, Chloride 107, Carbon Dioxide 19.0 L, Anion Gap 11, BUN 80 H, Creatinine 5.72 H, Estim Creat Clear Calc 20.05, Est GFR (MDRD) Af Amer 14 L, E st GFR (MDRD) Non-Af 12 L, BUN/Creatinine Ratio 14.0, Glucose 114 H, Calcium 8.8, B-Natriuretic Peptide 1063.7 H, Acetone Level NEGATIVE 01/23/24 04:58: POC Glucose 105 01/23/24 05:10: Urine Opiates Screen NEGATIVE, Urine Methadone Screen NEGATIVE, Ur Barbiturates Screen NEGATIVE, Ur Phencyclidine Scrn NEGATIVE, Ur Amphetamines Screen NEGATIVE, MDMA (Ecstasy) Screen NEGATIVE, U Benzodiazepines Scrn NEGATIVE, Urine Cocaine Screen NEGATIVE, U Cannabinoids Screen NEGATIVE, Ur Drug Screen Comment 01/23/24 06:06: POC Glucose 97 ABG Data ABG results: ABG 01/22/24 01/23/24 22:52 03:18 Specimen Type ARMANI ART Sample Site Not entered R Radial pH 7.40 Bicarbonate Actual 18.4 L Total CO2 19 Base Excess -6 L O2 Saturation 92 L O2 % 4.0 ABG pCO2 29.4 L ABG pO2 63 L Red Test Positive VBG pH 7.35 VBG pO2 36 VBG HCO3 15 L VBG Total CO2 16 L VBG O2 Sat (Calc) 68 VBG Base Excess -10 L POC Mix VBG pCO2 Pt Tmp 28.2 L O2 Delivery Device Room Air Cannula Vent Mode Not entered Radiography Diagnostic Testing: Radiology Impression Chest X-Ray 01/22/24 22:45 IMPRESSION: No radiographic evidence of acute cardiopulmonary disease. Electronically Signed: Jorge Hoover MD at 23:34 EDT , Physical Exam Const alert and no apparent distress HEENT head/scalp atraumatic and moist oral mucous membranes Resp normal respiratory effort, no retractions, no use of accessory muscles and clear to auscultation bilaterally Cardio regular rate, regular rhythm, S1 normal heart sound and S2 normal heart sound GI normal to inspection, nondistended, normoactive bowel sounds, soft to palpation, non-tender and non-distended Extremity normal to inspection and full ROM Assessment & Plan Assessment/Plan (1) Diabetic ketoacidosis: QUALIFIERS: Diabetes mellitus complication detail: without coma D iabetes mellitus type: type 1 Qualified Code(s): E10.10 - Type 1 diabetes mellitus with ketoacidosis without coma (2) Elevated troponin: (3) Acute kidney injury superimposed on chronic kidney disease: (4) DM type 1 (diabetes mellitus, type 1): QUALIFIERS: Diabetes mellitus complication status: with unspecified complications Qualified Code(s): E10.8 - Type 1 diabetes mellitus with unspecified complications (5) Congestive heart failure of unknown etiology: PLAN: Plan DKA * in type I diabetic. Gap now closed. * DC insulin gtt. Appears to have an insulin pump at home. Since there is no inpatient insulin pump protocol, will start glargine, prandial and SSI. In 2020 (before insulin pump, he was on glargine 70 units daily + aspart 40 TID). Will resume glargine at 60, 20 of aspart for now. NSTEMI * troponins up to 2250 * on heparin gtt * Left heart cath PCI to 70% lesion to LAD. * continue ASA, metoprolol succinate. No ACEi, ARB, ARNI given CKD * D-dimer normal. Low pretest probability for PE, dc VQ * Check echo. Last echo was in June and EF at that time was 55%. * Meds with ASA, clopidogrel, atorvastatin. ANN on CKD4 * improved * nephrology on consult Acute hypoxic respiratory failure * pulse ox down to 78%. Now on 6 liters/NC. Developed after IVF. * Initial CXR was negative. Concern for developing CHF. Pt did receive a 1x dose of bumetanide * I cancelled VQ given normal D-dimer. * ABG cw metabolic acidosis. Started on BiPAP. Metabolic acidosis * 2/2 CKD. * DW Dr. Sue. Plan to start HD today. Chronic conditions: * History of anxiety; * Essential hypertension: amlodipine, metoprolol succinate * Hyperlipidemia: continue statin VTE prophylaxis: not indicated as he is already anticoagulated. Charges/Coding Visit Charges Inpatient E&M: 14344 Subs Hosp L3
--- NOTE | 2024-01-23 07:55 | ECHOD_ITS ---
Reason For Study: NSTEMI Procedure This was a 2D Doppler, Color Flow transthoracic echocardiogram. Exam performed portable in ICU/CCU. Left Ventricle Normal LV size. The estimated ejection fraction is 60 %. Left ventricular systolic function is normal. Normal diastology for age. No regional wall motion abnormalities noted. Right Ventricle Normal RV size. Normal systolic function. Atria Normal left atrium. Normal right atrium. Mitral Valve The mitral valve is structurally normal. No prolapse or stenosis seen. Mild (1+) mitral valve insufficiency. Tricuspid Valve Normal tricuspid valve. Trivial tricuspid valve insufficiency. Unable to estimate RV systolic pressure due to insufficient tricuspid regurgitant envelope. Aortic Valve Trisinus/trileaflet aortic valve. Pulmonic Valve Normal pulmonic valve. Trivial pulmonic valve insufficiency. Great Vessels Normal aortic root. Pericardium/Pleural No pericardial effusion. MMode/2D Measurements & Calculations LVIDd: 5.0 cm IVSd: 1.2 cm Ao root diam: 3.0 cm LVIDs: 3.3 cm LVPWd: 1.2 cm FS: 34.5 % LAV(MOD-bp): 73.8 ml LVAd ap4: 34.0 cm2 LVAd ap2: 29.5 cm2 LAV(MOD-bp) Indexed: 34.2 ml/m2 LVLd ap4: 9.4 cm LVLd ap2: 8.5 cm LAV(MOD-sp2): 71.5 ml EDV(MOD-sp4): 105.8 ml EDV(MOD-sp2): 89.1 ml LAV(MOD-sp4): 71.8 ml EDV(sp4-el): 104.0 ml EDV(sp2-el): 87.0 ml LVAs ap4: 21.0 cm2 LVAs ap2: 16.6 cm2 LVLs ap4: 7.6 cm LVLs ap2: 6.9 cm ESV(MOD-sp4): 47.7 ml ESV(MOD-sp2): 34.9 ml ESV(sp4-el): 49.2 ml ESV(sp2-el): 33.8 ml EF(MOD-sp4): 54.9 % EF(MOD-sp2): 60.8 % EF(sp4-el): 52.7 % SV(MOD-sp4): 58.1 ml SV(MOD-sp2): 54.2 ml SV(sp4-el): 54.8 ml LA dimension(2D): 3.9 cm LA A4 area: 22.3 cm2 RA A4 area: 16.2 cm2 TAPSE: 2.0 cm Time Measurements MV dec time: 0.15 sec Doppler Measurements & Calculations MV E max javed: 135.1 cm/sec Lat Peak E' Javed: 12.0 cm/sec Med Peak E' Javed: 8.5 cm/sec MV A max javed: 69.8 cm/sec E/E' lat: 11.3 E/E' med: 15.8 MV E/A: 1.9 MV V2 max: 154.1 cm/sec MV P1/2t max javed: 154.1 cm/sec Ao V2 max: 137.4 cm/sec MV max P.5 mmHg MV P1/2t: 36.4 msec Ao max P.5 mmHg MV V2 mean: 81.4 cm/sec MV dec slope: 1241 cm/sec2 Ao V2 mean: 100.9 cm/sec MV mean P.2 mmHg Ao mean P.6 mmHg MV V2 VTI: 24.7 cm MVA(P1/2t): 6.0 cm2 Ao V2 VTI: 29.0 cm AV (velocity ratio): 0.86 LV V1 max: 124.2 cm/sec PA V2 max: 129.6 cm/sec LV V1 max P.2 mmHg PA V2 mean: 82.4 cm/sec LV V1 mean P.7 mmHg LV V1 mean: 91.2 cm/sec LV V1 VTI: 24.8 cm ECHO/Echo Complete Interpretation Summary The estimated ejection fraction is 60 %. Mild (1+) mitral valve insufficiency. Mild apical Hypokinesia The study was technically difficult. Ordering Physician: Garrison Joaquin Referring Physician: PEG PCP Performed By: Anupama Morin, UNRULYCS, RVT
--- NOTE | 2024-01-23 08:05 | RAD_ITS ---
STUDY: X-RAY CHEST REASON FOR EXAM: Male, 43 years old. Respiratory failure TECHNIQUE: Single AP portable view of the chest. COMPARISON: Comparison is made with prior study January 22, 2024. FINDINGS: EKG electrodes are seen. Stable mild elevation of the right hemidiaphragm. There is no demonstrated pleural abnormality. Normal size heart. Normal mediastinum and yamini. Normal visualized pulmonary arteries. Normal visualized aortic arch and descending thoracic aorta. Normal visualized thoracic spine. Normal visualized ribs, clavicles, and shoulders. There is no demonstrated abnormality of the visualized soft tissue structures of the upper abdomen. RAD/Chest 1 View (Portable) IMPRESSION: No acute abnormality is seen. Electronically Signed: Neeraj Brown MD at 8:20 EDT ,
--- NOTE | 2024-01-23 08:50 | NURSING ---
patient's glucose meter reading 156. Patient's insulin pump delivered 0.05 units of insulin at this time
[2024-01-23 09:17] LABS: Partial Thromboplast Time 48.2 Seconds (24.1-36.2)
[2024-01-23] MEDS: amLODIPine 10 MG Tablet PO (09:23)
[2024-01-23] MEDS: Metoprolol(XL)Succ 25 MG Tablet PO (09:23)
[2024-01-23] MEDS: Pantoprazole Sodium 40 MG in 0.9% Normal Saline (100mL MB+) 100 ML 330 MG IV (09:24)
[2024-01-23 09:27] LABS: Anion Gap 13 (5-15); BUN 79 mg/dL (7-18); BUN/Creat Ratio 13.9 RATIO (10-20); Calcium,Total 9.1 mg/dL (8.5-10.1); Chloride 107 mmol/L (98-107); EST Glomerular Filtration Rate 12 mL/min (>60); Est Glom Filt Rate - Afr Amer 14 mL/min (>60); Estimated Creatinine Clearance 20.12 ml/min; Glucose 117 mg/dL (74-106); Potassium 3.8 mmol/L (3.5-5.1); Sodium Level 139 mmol/L (136-145)
--- NOTE | 2024-01-23 09:31 | CASEMGMT ---
KANDACE HAYNES Assessment Face to Face with patient for initial transition planning/care coordination assessment. KANDACE HAYNES introduced self and role at [facility], pt voices understanding. Pt is A&Ox4 and is resting comfortably in bed and is calm. Care providers, pharmacy, and demographics verified. Admitting dx: DKA, NSTEMI, ANN on CKD Stage IV LACE Strata: 2 PCP: Marly Specialists: (Endo), Emily (Nephro) Preferred Pharmacy: [facility] Insurance: [employer] Prescription Benefit: Yes LNOK: Ira Truong (W), Page Truong (M) Living Arrangements: Pt lives with his and 3 kids (ages 18,16,14) in a 2 story home with 15 steps to enter ADLs/IADLs: Ind Transportation: Self, DME: Pt has a Dexcom CBGM, Omnipod insulin pump, and a glucometer as a backup. Pt states that his supplies are no longer being covered by his insurance and that he cannot afford to pay for these OOP as they cost around 1,000$ without insurance coverage. Pt states that he just received a voicemail this morning from his pharmacy stating that they cannot bill his insurance any longer d/t being ineligible. TC to [employer] and they confirmed that the pt is showing ineligible. TC to registration. Registration states that the pt is inactive with all [employer] services. Registration states that there was a mistake yesterday when they ran the pt insurance as they stated that it was active, when it is not. SW updated and will call the pt insurance to assist in figuring this situation out. Will follow. Pt is also currently on additional oxygen at this time and may qualify for home oxygen. The hope is that [facility] staff can assist in the pt getting set back up with insurance. If so, a list of local in-network DME companies provided to the pt. Pt states that he would prefer to go through [facility] if qualified for home oxygen. IVY to follow. HHC/SNF: Denies history or needs Pt?s goal: Home Plan: Home with potential DME. To follow for insurance issues and diabetic supply costs. Pt denies the need for HHC, OP Tx, CCN or Pt Link. Pt states that he plans to Dc home with his family once he is medically ready and denies further concerns at this time. IVY and SW to follow. Gautam Hernandez RN CM
--- NOTE | 2024-01-23 10:11 | CASEMGMT ---
Addendum entered by Krystal Teresa 01/23/24 10:26: Social Work SW spoke with Abril from [employer] and informed that pt's medicaid has been terminated. Abril will meet with pt to discuss insurnace eligibility. BLAIR Herring Original Note: Social Work Phone call to [facility] who states pt's insurance was terminated on 12/29/23 and pt currently does not have an active plan. SW attempted to meet with pt to discuss termination of insurance. Pt leaving room for a procedure. SW to follow up when pt is available. BLAIR Herring
--- NOTE | 2024-01-23 10:37 | CON.PCM.RE_ITS ---
<Statement entered by Domenica Salgado MD - 01/23/24 18:05> I have personally performed a face to face assessment of the patient and have reviewed the ARTUR Note. Impression/Plan: The patient is a 43-year-old male with past history of type 1 diabetes mellitus, hypertension, Charcot's foot, hyperlipidemia and chronic kidney disease stage G4. The patient is followed in nephrology office by my partner, Dr. Diaz. Patient has been prepared for ESRD and had AV fistula placed in July 2023. Patient presented to hospital on 01/23/2024 with chest pain. The patient was diagnosed with NSTEMI. He underwent LHC on 01/23/2024 but did not require intervention. Nephrology is following for ANN on CKD. Acute kidney injury on chronic kidney disease stage G4. Baseline serum creatinines been around 5.00 mg/dL prior to this admission. Patient has been prepared for ESRD by Dr. Diaz. He is status post AV fistula placement in July 2023. Serum creatinine has increased to 6.20 mg/dL on 01/22/2024. With hydration, serum creatinine is still elevated today at 5.70 mg/dL. Patient is volume overloaded. Therefore, we have decided to proceed with hemodialysis. Unfortunately, AV fistula is too immature to be used. Therefore, temporary dialysis catheter was placed by Dr. Joaquin. I appreciate Dr. Joaquin's help with establishing vascular access. We will dialyze patient for 3 hours today. We will use slower blood flow for first dialysis treatment. We will remove 1 L with ultrafiltration. Documented by User: RAVINDER Tanner 01/23/24 11:03 Assessment & Plan Assessment/Plan (1) CKD (chronic kidney disease), stage V: (2) Elevated troponin: (3) Hypertension: QUALIFIERS: Hypertension type: unspecified Qualified Code(s): I10 - Essential (primary) hypertension PLAN: Plan This is a pleasant 43-year-old male with past medical history significant for diabetes mellitus type 1, hypertension, CKD with proteinuria who presented to the emergency room with complaints of chest pain. Patient was admitted for DKA and elevated troponin. Patient was initially started on insulin drip, he is now off insulin drip as glucose levels have much improved. Cardiology consulted for detectable troponin and patient is going for heart cath now. Nephrology consulted as patient has history of CKD stage V. Baseline EGFR has been ranging around 13 to 15 mL/min. Yesterday in the emergency room creatinine was 6.2, EGFR 11. Today creatinine is 5.7, Potassium is 3.8, bicarb is 19 (improved from 15). Patient is making urine. At this time there is no acute indication for PLATEN BUILDER UP (no hyperkalemia or significant acidemia, nonoliguric, no significant uremic symptoms) however patient does understand there is a risk that contrast may affect kidney function to the point of patient needing to start hemodialysis. Initial chest x-ray did not show any acute process or fluid, however early this morning patient did develop some shortness of breath with IV fluids, needed oxygen placed and received a dose of bumetanide IV with good response and urine output. IV fluids have been stopped. We will follow patient and SCr trends post heart cath, recommend minimal contrast as able with cath today. Patient did have creation of AV fistula on July 31. He had a follow-up appointment on August 06. It is unknown if patient has seen vascular since August 06 (he is not clear with his follow-up dates) and unknown if they have cleared cannulation for AV fistula if/and when needed. Fistula is small but does have good thrill and bruit. It was discussed with patient today should he need dialysis and unable to cannulate AV fistula he would need tunneled hemodialysis catheter for hemodialysis. Patient is in agreement for starting hemodialysis if and when needed. Labs ordered for morning. Further orders forthcoming as hospitalization evolves, thank you for allowing us to participate in the care of Mr. Gonzales. HPI Consult Data Date of Consult: 01/23/24 HPI Narrative HPI Narrative: LAURIE GONZALES, is a 43 M with past medical history significant for diabetes mellitus type 1, hypertension, CKD stage IV/V with proteinuria ranging around 2.5 to 3 g. who presented to the emergency room yesterday with complaints of chest pain, pain in back, neck and shoulders. Workup in the emergency room included elevated troponin, glucose 491, admitted for DKA and non-STEMI. Also creatinine was 6.2 up from baseline. Nephrology consulted for ANN superimposed on CKD. Patient is known to our group and has been following with Dr. Diaz, he was last seen in the [place] office on October 21. At that time EGFR around 15, no uremic symptoms, and patient has next follow-up on February 05. In anticipation for eventual hemodialysis patient did have creation of a left forearm radiocephalic AV fistula per Dr. Vargas on August 01, 2023. Patient states he had appointment with vascular after his AV fistula surgery. Patient denies any recent nausea, vomiting or diarrhea. Denies any urinary habitus changes and states he continues to make urine. [facility] Medical History (Updated 01/23/24 @ 10:44 by RAVINDER Tanner) Acute kidney injury Hypertension Pre-op testing ESRF (end stage renal failure) Stage 4 chronic kidney disease Diabetes mellitus type 1 Insulin pump titration Presence of insulin pump CKD (chronic kidney disease) Obesity Abscess Charcot foot due to diabetes mellitus Type 1 diabetes mellitus Home Medications ?Medication ?Instructions ?Recorded ?Last Taken ?Type blood sugar diagnostic (FreeStyle #100 ea 10/08/21 Unknown Rx Lite Strips) blood-glucose meter,continuous #1 ea 10/08/21 Unknown Rx (Dexcom G6 Landscape Designer) lancing device with lancets kit #100 ea 11/26/21 Unknown Rx ([employer] Delica Plus Lancing Device kit) pen needle, diabetic 32 gauge x #150 ea 02/26/22 Unknown Rx 5/32 (BD Ultra-Fine Carol Pen Needle) alcohol swabs (BD Alcohol Swabs) 1 pad topical .4 times daily #200 05/20/22 Unknown Rx ea furosemide 40 mg tablet 80 mg PO BID 07/30/23 08/01/23 History insulin aspart U-100 100 unit/mL 80 unit (0.8 mL) continuous 08/18/23 Unknown Rx subcutaneous solution (Novolog subcutaneous infusion .continuous U-100 Insulin aspart) #72 mL rosuvastatin 10 mg tablet 10 mg PO DAILY #90 tabs 11/07/23 Unknown Rx amlodipine 10 mg tablet 10 mg PO DAILY #90 tabs 11/17/23 Unknown Rx metoprolol succinate 25 mg 25 mg PO DAILY #30 tabs 11/27/23 Unknown Rx tablet,extended release 24 hr insulin pump cart,automated,BT #30 ea 01/06/24 Unknown Rx blood-glucose sensor (Dexcom G6 #9 ea 01/16/24 Unknown Rx Sensor device) blood-glucose transmitter (Dexcom #1 ea 01/16/24 Unknown Rx G6 Transmitter device) Allergy/AdvReac Type Severity Reaction Status Date / Time No Known Allergies Allergy Verified 01/22/24 20:12 Family History Mother Diabetes Thyroid disorder Grandmother Diabetes Grandfather Diabetes Surgical History History of surgery on lower extremity Social History Smoking Status: Never smoker alcohol intake: never substance use type: does not use ROS ROS Narrative As in HPI Physical Exam Narrative Alert and orient x 3, no apparent distress S1, S2, RRR Lungs clear anteriorly and posteriorly. No wheezes, rhonchi or rales Abdomen soft, nontender No edema Left forearm AV fistula with positive thrill and bruit. Fistula is small. Lab / Micro Data 01/23/24 04:45 01/23/24 09:00 Labs: Laboratory Results - last 24 hr 01/22/24 20:30: WBC 11.9 H, RBC 3.25 L, Hgb 8.6 L, Hct 26.8 L, MCV 82.5, MCH 26.5 L, MCHC 32.1, RDW Std Deviation 38.4, RDW Coeff of Marcella 12.7, Plt Count 340, MPV 9.6, Immature Gran % (Auto) 0.500, Neut % (Auto) 84.8 H, Lymph % (Auto) 8.5 L, [place] % (Auto) 5.5, Eos % (Auto) 0.1, Baso % (Auto) 0.6, Absolute Neuts (auto) 10.1 H, Absolute Lymphs (auto) 1.01, Nucleated RBC % 0, PT 13.9, INR 1.1, APTT 27.1, Sodium 130 L, Potassium 4.4, Chloride 97 L, Carbon Dioxide 15.0 L, Anion Gap 18 H, BUN 80 H, Creatinine 6.20 H, Estim Creat Clear Calc 18.52, Est GFR (MDRD) Af Amer 13 L, Est GFR (MDRD) Non-Af 11 L, BUN/Creatinine Ratio 12.9, G lucose 491 H*, Hemoglobin A1c 7.9 H, Calcium 9.2, Total Bilirubin 0.40, AST 20, ALT 31, Alkaline Phosphatase 72, Troponin I High Sens 588 H*, Total Protein 7.5, Albumin 3.7, Globulin 3.8, Albumin/Globulin Ratio 1.0 01/22/24 20:38: Urine Color Yellow, Urine Clarity Clear, Urine pH 6.0, Ur Specific [place] 1.015, Urine Protein 100 H, Urine Glucose (UA) 1000 H, Urine Ketones 15 H, Urine Occult Blood 25 H, Urine Nitrite Negative, Urine Bilirubin Negative, Urine Urobilinogen Normal, Ur Leukocyte Esterase Negative, Urine RBC 0 SEEN, Urine WBC 0 SEEN, Ur Squamous Epith Cells 0 SEEN, Urine Bacteria RARE, Urine Mucus 0 SEEN, POC Glucose 488 H* 01/22/24 21:23: POC Glucose 444 H 01/22/24 22:20: Acetone Level SMALL H 01/22/24 23:56: POC Glucose 340 H 01/23/24 01:00: POC Glucose 240 H 01/23/24 01:31: POC Glucose 223 H 01/23/24 01:40: Sodium 134 L, Potassium 4.8, Chloride 104, Carbon Dioxide 18.0 L , Anion Gap 12, BUN 79 H, Creatinine 5.88 H, Estim Creat Clear Calc 19.51, Est GFR (MDRD) Af Amer 14 L, Est GFR (MDRD) Non-Af 11 L, BUN/Creatinine Ratio 13.4, Glucose 216 H, Calcium 9.2, Magnesium 2.5, Troponin I High Sens 2250 H*, Triglycerides 72, Cholesterol 132, LDL Cholesterol 49, VLDL Cholesterol 14, HDL Cholesterol 69, TSH 1.100 01/23/24 02:28: POC Glucose 158 H 01/23/24 03:30: POC Glucose 129 H 01/23/24 04:45: WBC 14.3 H, RBC 3.76 L, Hgb 10.0 L, Hct 29.8 L, MCV 79.3 L, MCH 26.6 L, MCHC 33.6, RDW Std Deviation 36.2, RDW Coeff of Marcelal 12.7, Plt Count 270, MPV 9.0, Immature Gran % (Auto) 0.300, Neut % (Auto) 78.3 H, Lymph % (Auto) 9.9 L, [place] % (Auto) 10.8 H, Eos % (Auto) 0.3, Baso % (Auto) 0.4, Absolute Neuts (auto) 11.2 H, Absolute Lymphs (auto) 1.42, Nucleated RBC % 0, Differential Comment SCANNED, Diff Path Review July, D-Dimer Quant (PE/DVT) 0.45, Sodium 137, Potassium 3.9, Chloride 107, Carbon Dioxide 19.0 L, Anion Gap 11, BUN 80 H, Creatinine 5.72 H, Estim Creat Clear Calc 20.05, Est GFR (MDRD) Af Amer 14 L, E st GFR (MDRD) Non-Af 12 L, BUN/Creatinine Ratio 14.0, Glucose 114 H, Calcium 8.8, B-Natriuretic Peptide 1063.7 H, Acetone Level NEGATIVE 01/23/24 04:58: POC Glucose 105 01/23/24 05:10: Urine Opiates Screen NEGATIVE, Urine Methadone Screen NEGATIVE, Ur Barbiturates Screen NEGATIVE, Ur Phencyclidine Scrn NEGATIVE, Ur Amphetamines Screen NEGATIVE, MDMA (Ecstasy) Screen NEGATIVE, U Benzodiazepines Scrn NEGATIVE, Urine Cocaine Screen NEGATIVE, U Cannabinoids Screen NEGATIVE, Ur Drug Screen Comment 01/23/24 06:06: POC Glucose 97 01/23/24 09:00: APTT 48.2 H, Sodium 139, Potassium 3.8, Chloride 107, Carbon Dioxide 19.0 L, Anion Gap 13, BUN 79 H, Creatinine 5.70 H, Estim Creat Clear Calc 20.12, Est GFR (MDRD) Af Amer 14 L, Est GFR (MDRD) Non-Af 12 L, BUN/Creatinine Ratio 13.9, Glucose 117 H, Calcium 9.1 ABG Data ABG results: ABG 01/22/24 01/23/24 22:52 03:18 Specimen Type ARMANI ART Sample Site Not entered R Radial pH 7.40 Bicarbonate Actual 18.4 L Total CO2 19 Base Excess -6 L O2 Saturation 92 L O2 % 4.0 ABG pCO2 29.4 L ABG pO2 63 L Red Test Positive VBG pH 7.35 VBG pO2 36 VBG HCO3 15 L VBG Total CO2 16 L VBG O2 Sat (Calc) 68 VBG Base Excess -10 L POC Mix VBG pCO2 Pt Tmp 28.2 L O2 Delivery Device Room Air Cannula Vent Mode Not entered Imaging Radiology Impression Chest X-Ray 01/22/24 22:45 IMPRESSION: No radiographic evidence of acute cardiopulmonary disease. Electronically Signed: Jorge Hoover MD at 23:34 EDT , Chest X-Ray 01/23/24 08:05 IMPRESSION: No acute abnormality is seen. Electronically Signed: Neeraj Brown MD at 8:20 EDT , Documented by User: Dr. Domenica Salgado MD 01/23/24 18:05 Assessment & Plan Assessment/Plan (1) CKD (chronic kidney disease), stage V: (2) Elevated troponin: (3) Hypertension: QUALIFIERS: Hypertension type: unspecified Qualified Code(s): I10 - Essential (primary) hypertension HPI Consult Data Date of Consult: 01/23/24 [facility] Medical History (Updated 01/23/24 @ 10:44 by RAVINDER Tanner) Acute kidney injury Hypertension Pre-op testing ESRF (end stage renal failure) Stage 4 chronic kidney disease Diabetes mellitus type 1 Insulin pump titration Presence of insulin pump CKD (chronic kidney disease) Obesity Abscess Charcot foot due to diabetes mellitus Type 1 diabetes mellitus Home Medications ?Medication ?Instructions ?Recorded ?Last Taken ?Type blood sugar diagnostic (FreeStyle #100 ea 10/08/21 Unknown Rx Lite Strips) blood-glucose meter,continuous #1 ea 10/08/21 Unknown Rx (Dexcom G6 Landscape Designer) lancing device with lancets kit #100 ea 11/26/21 Unknown Rx ([employer] Plus Lancing Device kit) pen needle, diabetic 32 gauge x #150 ea 02/26/22 Unknown Rx /32 (BD Ultra-Fine Carol Pen Needle) alcohol swabs (BD Alcohol Swabs) 1 pad topical .4 times daily #200 05/20/22 Unknown Rx ea furosemide 40 mg tablet 80 mg PO BID 07/30/23 08/01/23 History insulin aspart U-100 100 unit/mL 80 unit (0.8 mL) continuous 08/18/23 Unknown Rx subcutaneous solution (Novolog subcutaneous infusion .continuous U-100 Insulin aspart) #72 mL rosuvastatin 10 mg tablet 10 mg PO DAILY #90 tabs 11/07/23 Unknown Rx amlodipine 10 mg tablet 10 mg PO DAILY #90 tabs 11/17/23 Unknown Rx metoprolol succinate 25 mg 25 mg PO DAILY #30 tabs 11/27/23 Unknown Rx tablet,extended release 24 hr insulin pump cart,automated,BT #30 ea 01/06/24 Unknown Rx blood-glucose sensor (Dexcom G6 #9 ea 01/16/24 Unknown Rx Sensor device) blood-glucose transmitter (Dexcom #1 ea 01/16/24 Unknown Rx G6 Transmitter device) Allergy/AdvReac Type Severity Reaction Status Date / Time No Known Allergies Allergy Verified 01/22/24 20:12 Family History Mother Diabetes Thyroid disorder Grandmother Diabetes Grandfather Diabetes Surgical History History of surgery on lower extremity Social History Smoking Status: Never smoker alcohol intake: never substance use type: does not use Lab / Micro Data 01/23/24 04:45 01/23/24 09:00
[2024-01-23 11:39] LABS: Bedside Glucose 84 mg/dL (74-106)
[2024-01-23 12:17] LABS: Base Excess -17 mmol/L (-2 to +2); Bicarbonate 10.8 mmol/L (22-26); Blood Gas Specimen Type ART; Mode Not entered; O2 Delivery Device Not entered; PO2 39 mmHG (75-100); SITE Not entered; SO2 63 % (95-99); Total Carbon Dioxide 12 mmol/L; pCO2 28.3 mmHg (35-45); pH 7.19 (7.35-7.45)
--- NOTE | 2024-01-23 12:35 | PCIREPORT_ITS ---
PCI Cardiac Cath Report PCI Report: PCI cardiac catheterization report; 1. Moderate sedation 2. Selective left coronary angiography 3. Selective right coronary angiography 4. Measurement of LVEDP 4. Measurement of LVEDP and a pullback pressure 5. Successful PCI of the culprit lesion which is diffuse mid LAD 70% stenosis With initial CHIDI III flow, with multiple balloon inflation/escalating the balloon With 2.25 followed by 2.5 x 20 mm,Emerge MR balloon, followed by placement of drug-eluting stent 3 x 38 mm Andres frontier PAXTON Achievement of excellent result with reduction of stenosis to 0% and maintenance of CHIDI-3 flow postprocedure. Preprocedure diagnosis; 43-year-old patient with history of diabetes mellitus, hypertension, hyperlipidemia overweight with a BMI of 2.9.5. Admitted with hyperglycemia and DKA Patient has renal insufficiency and has a AV fistula in place with his creat inine was around 6.2 pending for hemodialysis Presentation is symptoms of chest pain described as heaviness and pressure in the retrosternal region subsequent evaluation with a series of high sensitive troponins revealed evidence of non-ST elevation IN started on treatment with heparin Plavix aspirin statin and echocardiogram showed LV function preserved mild apical hypokinesia. Symptoms of chest pain improved this morning he was having still which he described as a heaviness and crushing chest discomfort. Based on the clinical presentation he was taken to the [facility] for further evaluation. Consent; Risk and benefit of the procedure explained in detail patient elected to proceed informed consent obtained. Access; 6 Cameroonian sheath placed in the right radial artery. Diagnostic and interventional catheter used #1 5 Cameroonian JL 3 5 2. 5 Cameroonian JR4 3. 6 Cameroonian JL 3.5 guide catheter 4. 0.014 180 cm run-through extra floppy straight guide wire 5. To 0.25 x 20 mm balloon 6. 2.5 x 20 mm balloon 7. 3 x 38 mm drug-eluting stent/Andres frontier PAXTON Medication used in the [facility] He was given additional 3000 Plavix in addition to aspirin 325 mg today. Heparin was used as an anticoagulant with acceptable ACT level. Procedure in detail; Patient brought to the [facility] at the urgent And will proceed with access from the right radial artery and then we will proceed with diagnostic catheter angiographic view were obtained including left and right coronary system. He had diffuse coronary artery disease multivessel discussed the case with the skiing instructor Dr. Garcia and we decided to proceed for the PCI of the LAD which I believe is the culprit in his case. Therefore we will proceed with interventional plan and we used a guide catheter and then we were having some difficulty crossing the LAD therefore we used 2 ELGIN and were able to cross the lesion in the LAD after the balloon inflation in the ostium of the diagonal to facilitate the wire entry into the LAD. And then we started to do balloon escalation with multiple views into the mid LAD using 2.25 followed by 2.5 balloon and we were able to use a guide liner and were able to deliver the stent into the mid LAD dilated up to 16 ELGIN and achieve an excellent result. He remains stable clinically he was having more shortness of breath and oxygen saturation was low were able to start on BiPAP. Conclusion recommendation; 43-year-old patient with multiple medical comorbidities diabetes mellitus DKA renal insufficiency with elevated creatinine pending renal hemodialysis Presentation is non-ST elevation IN with high sensitive troponin more than 2000 and the echocardiogram showed mild apical hypokinesia as well in the EKG he got some change in V1 V2. Patient underwent successful PCI of the culprit lesion. Hemodynamics; LVEDP elevated to 23 mmHg There is no systolic gradient across aortic valve. Coronary angiography; 1. Left main is normal angiographically calcified with extension of calcification into LAD. The left main coronary artery bifurcates into LAD and left circumflex 2. The left anterior descending artery had diffuse atherosclerosis of around 70% involving the mid LAD after the first septal branch. There was a fairly diagonal had diffuse atherosclerosis of around 70 the second diagonal also is a small but have a diffuse atherosclerosis 70-80. The LAD in the distal portion has no significant atherosclerosis 3. The left circumflex is moderate in size second OM branch had mid and the distal diffuse atherosclerosis of around 60% 4. RCA is large dominant with distal RCA had around 50% The bifurcation of the PDA and the posterolateral branch has a diffuse atherosclerosis. CAD in conclusion this patient has with diabetes renal insufficiency diffuse coronary artery atherosclerosis with successful PCI of the culprit lesion for non-ST elevation IN which is a diffuse left anterior descending artery. Recommendation and plan; Patient will be monitored in CCU 2. Will continue dual antiplatelet therapy clopidogrel 75 mg and low-dose aspirin 81 mg. 3. Will start on low-dose beta-zain carvedilol 3.125 twice daily 4. Patient will be monitored in CCU for his renal function and he may require dialysis due to the contrast-induced nephropathy worsening his renal function this can be monitored 5. Patient will be scheduled for cardiac rehab program here at [facility] with the cardiology team 6. Patient will follow-up with skiing instructor Dr. Garcia for continuation of cardiac care. TR band applied to right radial artery with no complication in the [facility] Rodolfo Dockery MD,[facility] home office claims examiner
[2024-01-23 12:39] LABS: ACT Activated Clotting Time 250 sec (74-137)
[2024-01-23 12:39] LABS: ACT Activated Clotting Time 177 sec (74-137)
--- NOTE | 2024-01-23 13:00 | EKG12_ITS ---
Test Reason : post stent Blood Pressure : / mmHG Vent. Rate : 089 BPM Atrial Rate : 089 BPM P-R Int : 152 ms QRS Dur : 084 ms QT Int : 396 ms P-R-T Axes : 036 038 002 degrees QTc Int : 481 ms Normal sinus rhythm Prolonged QT Abnormal ECG When compared with ECG of 22-JAN-2024 22:33, MANUAL COMPARISON REQUIRED, DATA IS UNCONFIRMED Confirmed by MELISSA LACEY, DANIELLE ([id number]), purchasing expeditor ADRIANA MANJARREZ ([id number]) on 01/26/2024 10:01:27 AM Referred By: Nahed Confirmed By:DANIELLE TORRES MD
--- NOTE | 2024-01-23 13:29 | CRPH1.INST_ITS ---
General Education Discussed with Patient CAD and cardiac anatomy and function:: Patient communicates acknowledgment, Family communicates acknowledgment and Needs reinforcement Explanation of diagnoses and procedures:: Patient communicates acknowledgment, Family communicates acknowledgment and Needs reinforcement Sign/Symptoms of [place]:: Patient communicates acknowledgment, Family communicates acknowledgment and Needs reinforcement Antiplatelet therapy: Patient communicates acknowledgment, Family communicates acknowledgment and Needs reinforcement Proper use of NTG-SL: Patient communicates acknowledgment, Family communicates a cknowledgment and Needs reinforcement Emergency procedures and activation of EMS: Patient communicates acknowledgment, Family communicates acknowledgment and Needs reinforcement Compliance of all prescribed medications: Patient communicates acknowledgment, Family communicates acknowledgment and Needs reinforcement Smoking Risk Factors Patient Nicotine/Smoking Risk Factors Are:: Never smoked Dyslipidemia Risk Factors Patient Dyslipidemia Risk Factors Are:: Total Cholesterol, Triglycerides, HDL and LDL Recommendations Recommendations Include:: Lipid profile not available Response Code Dyslipidemia Response Code:: Patient communicates acknowledgment, Family communicates acknowledgment and Needs reinforcement Overweight/Obesity Risk Factors Patient Overweight/Obesity Risk Factors Are:: Overweight = 26-29 Recommendations Recommendations Include:: Weight loss of 5-10%, Reduced calorie diet and Exercise 5-7 times/week Response Code Overweight/Obesity:: Patient communicates acknowledgment, Family communicates acknowledgment and Needs reinforcement Hypertension Recommendations Recommendations Include:: BP <130/80 if diabetic and Decrease/maintain normal body weight Response Code Hypertension:: Patient communicates acknowledgment, Family communicates acknowledgment and Needs reinforcement Diabetes Risk Factors Patient Diabetes Risk Factors Are:: Elevated blood sugars Recommendations Recommendations Include:: Maintain fasting blood sugars 70-110 md/dL, Maintain HgbA1c of 6% or less, Monitor blood sugar as prescribed, Diabetic dietary guidelines and Decrease/maintain body weight Response Code Diabetes:: Patient communicates acknowledgment, Family communicates acknowledgment and Needs reinforcement Sedentary Risk Factors Patient Sedentary Risk Factors Are:: Lack of regular exercise Recommendations Recommendations Include:: Aerobic exercise 5-7 times/week for 20-30 minutes continuously, Benefits of regular exercise, Discussed home walking program and Monitored Outpatient Cardiac Rehab Response Code Sedentary Response Code:: Patient communicates acknowledgment, Family communicates acknowledgment and Needs reinforcement Stress Risk Factors Patient Stress Risk Factors Are:: Patient denies stress as a risk factor Recommendations Recommendations Include:: Identification of stressors, and assessment of coping skills and Stress management techniques Response Code Stress Response Code:: Patient communicates acknowledgment, Family communicates acknowledgment and Needs reinforcement
--- NOTE | 2024-01-23 13:29 | CRPHASE1 ---
Patient Communication Patient Information PHII Cardiac Rehab Discussed with Patient:: Yes Guide to Cardiac Rehab Given to Patient:: Yes Cardiac Rehab Facility Choice List Given to Patient:: Yes Communication to Cardiac Rehab Choice Program [facility] CR PHII:: Communication Given to CR Hunting Sales Associate:: Rodolfo Dockery Phase II Cardiac Rehab:: Yes Sessions:: 36 sessions - 3 days/wk, 12 weeks Cardiac Rehabilitation Info Program Information Cardiac Rehabilitation Program Information: Cardiac Rehab The cardiac rehab team at [facility] consists of highly skilled exercise physiologists, nurses, respiratory therapists and physicians working together with you. Our purpose is to help you have a full recovery and achieve the goals you set for yourself. Over the years many of our patients have returned to activities they assumed they would never do again! We can help restore your confidence and motivation to make lifestyle changes that can have a significant impact on your health and quality of life! We can help answer questions and concerns you may have about exercise, lifestyle, medications, diet, stress and anxiety which are common following a hospitalization. WE monitor ECG and vital signs during exercise and discuss your progress with you and report to your physician(s). Cardiac Rehab is proven to help reduce readmissions, improve functional capacity and lower recurrence of problems with your heart. Our Cardiac Rehab program is Certified by the [place] [employer]-Vascular and Pulmonary [employer] (AACVPR) and Accredited by the [place] [employer] through our [facility]. You can contact us at . We invite you to call us with your questions or to get started in our program. If you have other questions or concerns be sure to ask your physician/provider during your follow-up visit. WE look forward to seeing you!
[2024-01-23 13:43] LABS: Bedside Glucose 100 mg/dL (74-106)
[2024-01-23] MEDS: Sodium Bicarbonate 8.4% 50 ML Syringe 50 MEQ IV (13:48)
--- NOTE | 2024-01-23 14:00 | NURSING ---
Dr. Joaquin at bedside to place temporary dialysis catheter
--- NOTE | 2024-01-23 14:00 | CASEMGMT ---
Social Work ADITHYA met with pt and Patricia to discuss insurance. Pt and are aware that insurance was terminated on 12/28 and pt states he dropped off the requested paperwork to [facility] and is waiting for it to be processed. ADITHYA assisted pt in calling S who states that insurance was terminated as pt was over income and pt will need to reapply. Pt's states pt has been working 2 jobs recently, but she does not feel this should continue due to pt's health concerns. ADITHYA [facility] pt's [facility] and assist with reapplying for Medicaid. RNCM francoise. BLAIR Herring
--- NOTE | 2024-01-23 14:45 | RAD_ITS ---
STUDY: X-RAY CHEST REASON FOR EXAM: Male, 43 years old. Temp dialysis line placement TECHNIQUE: Single AP portable view of the chest. COMPARISON: Comparison is made with prior study dated January 23, 2024 at 8:02 AM.. FINDINGS: A right-sided temporary dialysis catheter has been placed with the tip at the junction of the superior vena cava and right atrium. EKG electrodes are seen. Mild degree of vascular congestion. There is no demonstrated pleural abnormality. There is borderline cardiomegaly. Normal mediastinum and yamini. Normal visualized pulmonary arteries. Normal visualized aortic arch and descending thoracic aorta. Normal visualized thoracic spine. Normal visualized ribs, clavicles, and shoulders. There is no demonstrated abnormality of the visualized soft tissue structures of the upper abdomen. RAD/CXR for Line Placement IMPRESSION: The tip of the right temporary dialysis catheter is at the junction of the superior vena cava and right atrium. Borderline cardiomegaly. Mild vascular congestion. Electronically Signed: Neeraj Brown MD at 15:07 EDT ,
[2024-01-23] MEDS: Heparin 10,000 UNITS/10 ML Vial 1300 UNITS IV (14:47)
--- NOTE | 2024-01-23 15:00 | PCM.HOSP.N ---
Hospitalist Note Procedure Right IJ temporary hemodialysis catheter Indication: Metabolic acidosis, end-stage renal disease. Risks: Discussed with the patient. Advised of the risks of bleeding as well as pneumothorax. Patient understand indication for the procedure and agreed to proceed. Description: Area prepped and draped in a sterile fashion. Using ultrasound guidance, the right internal jugular vein was identified. Area was anesthetized with local lidocaine. Using modified Seldinger technique, access was obtained via needle and then guidewire advanced. Patient had nonpulsatile blood. Using 2 dilators, a to port dialysis catheter was placed. The dialysis catheter was then sutured in place. Findings: Patient tolerated the procedure well. Estimated blood loss was roughly 10 cc. Follow-up chest x-ray: On my evaluation, dialysis catheter is at the left atrium. No pneumothorax. Procedures Hospitalists Procedures: 43090 Insert Non-tunnel CV Cath
[2024-01-23] MEDS: Acetaminophen 325 MG Tablet 650 MG PO ×2 (15:46→21:15)
[2024-01-23 15:50] LABS: Pathologist Review Reviewed
[2024-01-23] MEDS: oxyCODONE 5 MG Tablet PO ×2 (16:26→21:15)
[2024-01-23] MEDS: PureFlow B 2K Dialysis Soln 1 BAG 2 BAG PF (16:33)
[2024-01-23] MEDS: 0.9% Normal Saline 1,000 ML IV.SOLN. 1000 ML OPERA.SITE (16:33)
[2024-01-23] MEDS: 0.9% Saline Lock 10 ML Syringe IV ×2 (16:34→18:54)
[2024-01-23 17:06] LABS: Bedside Glucose 82 mg/dL (74-106)
--- NOTE | 2024-01-23 17:14 | NURSING ---
hospital glucometer reading patient's glucose 82, patients dexcom reading 126. Patient's insulin pump delivered 0.55 units
[2024-01-23] MEDS: PureFlow B 3K Dialysis Soln 1 BAG 3 BAG PF (17:18)
[2024-01-23 18:31] LABS: Hepatitis B Surface Antigen Non-Reactive (Nonreactive)
[2024-01-23] MEDS: Heparin 10,000 UNITS/10 ML Vial IV (18:55)
[2024-01-23] MEDS: Morphine 2 MG/ML Syringe IV (19:27)
[2024-01-23] MEDS: Atorvastatin Calcium 20 MG Tablet PO (21:15)
--- NOTE | 2024-01-23 21:20 | NURSING ---
Checked patients blood sugar on our glucometer. Blood sugar reads 171. Patient's dexcom reads 239 from around 2044. Patient's insulin pump gave him 4.35 units insulin as of 2114. 10 units given at 1905 as well.
[2024-01-23 21:29] LABS: Bedside Glucose 171 mg/dL (74-106)
[2024-01-24] VITALS (35 sets, daily range): BP systolic 103–161; BP diastolic 56–83; PULSE 79–99; RESP 12–22; TEMP 36.7–37.2; O2SAT 91–100; BMI 29.7
[2024-01-24] MEDS: 0.9% Saline Lock 10 ML Syringe IV ×4 (03:37→16:44)
[2024-01-24] MEDS: Morphine 2 MG/ML Syringe IV ×4 (03:38→21:15)
[2024-01-24 03:46] LABS: Hematocrit 22.2 % (40-54); Hemoglobin 7.3 g/dL (13.0-16.5); Mean Corp Hgb Conc 32.9 g/dL (32-36); Mean Corpuscular Volume 82.2 fL (80-94); Mean Platelet Vol. 9.5 fl (6.2-12.0); Platelet Count 283 K/mm3 (150-450); RBC Distribution Width CV 13.4 % (11.6-14.6); RBC Distribution Width SD 40.1 fl (35.1-43.9); White Blood Count 12.9 K/mm3 (4.4-11.0)
[2024-01-24 03:59] LABS: AST(SGOT) 49 U/L (15-37); Alanine Aminotransfer ALT/SGPT 26 U/L (16-61); Alkaline Phosphatase 53 U/L (45-117); Anion Gap 9 (5-15); BUN 49 mg/dL (7-18); BUN/Creat Ratio 11.1 RATIO (10-20); Calcium,Total 8.4 mg/dL (8.5-10.1); Chloride 109 mmol/L (98-107); EST Glomerular Filtration Rate 16 mL/min (>60); Est Glom Filt Rate - Afr Amer 19 mL/min (>60); Estimated Creatinine Clearance 25.97 ml/min; Globulin 2.9 g/dL (2.2-4.2); Glucose 100 mg/dL (74-106); Phosphorus 4.9 mg/dL (2.5-4.9); Potassium 3.9 mmol/L (3.5-5.1); Protein, Total 5.9 g/dL (6.4-8.2); Sodium Level 139 mmol/L (136-145)
[2024-01-24 04:06] LABS: BNP,B-Type NATRIURETIC PEPTIDE 1030.6 pg/mL (0-100)
[2024-01-24] MEDS: Ondansetron 4 MG/2 ML Vial IV ×3 (05:47→20:16)
--- NOTE | 2024-01-24 06:02 | NURSING ---
Entered patient's room, patient states that he is nauseas. Pt blood sugar reads 151 on his home glucometer. Patient given sprite zero and zofran.
--- NOTE | 2024-01-24 06:53 | PN.HOSP_ITS ---
Reason for Visit Reason for Visit: Diagnoses Type 1 diabetes mellitus with ketoacidosis without coma (01/23/24) Type 1 diabetes mellitus with unspecified complications (01/23/24) Other specified diabetes mellitus with ketoacidosis without coma (01/23/24) Overweight (01/23/24) Essential (primary) hypertension (01/23/24) Non-ST elevation (NSTEMI) myocardial infarction (01/23/24) Heart failure, unspecified (01/23/24) Acute kidney failure, unspecified (01/23/24) Chronic kidney disease, stage 5 (01/23/24) Chronic kidney disease, unspecified (01/23/24) Other abnormalities of breathing (01/23/24) Other specified abnormal findings of blood chemistry (01/23/24) Subjective Subjective Breathing while on Airvo (subsequently deescalated to NC). Pain at [facility] HD site. Objective Data Objective Data Vital Signs: Vital Signs Temp Pulse Resp BP Pulse Ox O2 Del Method O2 Flow Rate 37.2 C 90 12 161/80 H 96 Airvo 40 01/24/24 06:00 01/24/24 06:00 01/24/24 06:00 01/24/24 06:00 01/24/24 06:00 01/24/24 06:00 01/24/24 06:00 FiO2 50 01/24/24 06:00 Oxygen Flow Rate (L/min) 40 Oxygen Delivery Method Airvo Weight: 96.334 kg Body Mass Index (BMI) 29.7 Intake & Output: Intake and Output for Last 24 Hours 01/22/24 01/23/24 01/24/24 23:59 23:59 23:59 Intake Total 1000 / 1000 1230.07 / 1230.07 200 / 200 Output Total 2350 / 2350 300 / 300 Balance 1000 / 1000 -1119.93 / -1119.93 -100 / -100 Lab / Micro Data 01/24/24 03:30 01/24/24 03:30 Labs: Laboratory Results - last 24 hr 01/23/24 04:45: Diff Path Review Reviewed 01/23/24 04:58: POC Glucose 105 01/23/24 06:06: POC Glucose 97 01/23/24 07:09: POC Glucose 84 01/23/24 09:00: APTT 48.2 H, Sodium 139, Potassium 3.8, Chloride 107, Carbon Dioxide 19.0 L, Anion Gap 13, BUN 79 H, Creatinine 5.70 H, Estim Creat Clear Calc 20.12, Est GFR (MDRD) Af Amer 14 L, Est GFR (MDRD) Non-Af 12 L, BUN/Creatinine Ratio 13.9, Glucose 117 H, Calcium 9.1 01/23/24 11:47: Activated Clotting Time 177 H 01/23/24 12:10: Activated Clotting Time 250 H 01/23/24 13:02: POC Glucose 100 01/23/24 16:47: POC Glucose 82 01/23/24 17:51: Hep Bs Antigen Non-Reactive 01/23/24 21:10: POC Glucose 171 H 01/24/24 03:30: WBC 12.9 H, RBC 2.70 L, Hgb 7.3 L, Hct 22.2 L, MCV 82.2, MCH 27.0, MCHC 32.9, RDW Std Deviation 40.1, RDW Coeff of Marcella 13.4, Plt Count 283, MPV 9.5, Sodium 139, Potassium 3.9, Chloride 109 H, Carbon Dioxide 22.0, Anion Gap 9, BUN 49 H, Creatinine 4.40 H, Estim Creat Clear Calc 25.97, Est GFR (MDRD) Af Amer 19 L, Est GFR (MDRD) Non-Af 16 L, BUN/Creatinine Ratio 11.1, Glucose 100, Calcium 8.4 L, Phosphorus 4.9, Total Bilirubin 0.30, AST 49 H, ALT 26, Alkaline Phosphatase 53, B-Natriuretic Peptide 1030.6 H, Total Protein 5.9 L, A lbumin 3.0 L, Globulin 2.9, Albumin/Globulin Ratio 1.0 ABG Data ABG results: ABG 01/23/24 12:09 Specimen Type ART Sample Site Not entered pH 7.19 L* Bicarbonate Actual 10.8 L Total CO2 12 Base Excess -17 L O2 Saturation 63 L ABG pCO2 28.3 L ABG pO2 39 L* O2 Delivery Device Not entered Vent Mode Not entered Crit Call To/Read Back Yes Radiography Diagnostic Testing: Radiology Impression Echocardiogram 01/23/24 07:55 Interpretation Summary The estimated ejection fraction is 60 %. Mild (1+) mitral valve insufficiency. Mild apical Hypokinesia The study was technically difficult. Ordering Physician: Garrison Joaquin Referring Physician: NO PCP Performed By: Anupama Morin, HUNTER, RVT Chest X-Ray 01/23/24 08:05 IMPRESSION: No acute abnormality is seen. Electronically Signed: Neeraj Brown MD at 8:20 EDT , Chest X-Ray 01/23/24 14:45 IMPRESSION: The tip of the right temporary dialysis catheter is at the junction of the superior vena cava and right atrium. Borderline cardiomegaly. Mild vascular congestion. Electronically Signed: Neeraj Brown MD at 15:07 EDT , Physical Exam Const alert and no apparent distress HEENT head/scalp atraumatic and moist oral mucous membranes Neck no lymphadenopathy, supple and no JVD Neck Narrative: RIJ site without ecchymosis, erythema. Resp normal respiratory effort, no retractions, no use of accessory muscles and clear to auscultation bilaterally Cardio regular rate, regular rhythm, S1 normal heart sound and S2 normal heart sound GI normal to inspection, nondistended, normoactive bowel sounds, soft to palpation, non-tender and non-distended Extremity normal to inspection and full ROM Neuro Sensorium / Orientation: awake and alert Assessment & Plan Assessment/Plan (1) Diabetic ketoacidosis: QUALIFIERS: Diabetes mellitus complication detail: without coma D iabetes mellitus type: type 1 Qualified Code(s): E10.10 - Type 1 diabetes mellitus with ketoacidosis without coma (2) Acute kidney injury superimposed on chronic kidney disease: (3) DM type 1 (diabetes mellitus, type 1): QUALIFIERS: Diabetes mellitus complication status: with unspecified complications Qualified Code(s): E10.8 - Type 1 diabetes mellitus with unspecified complications (4) Congestive heart failure of unknown etiology: PLAN: Plan DKA in DM type I * POA, now resolved. * Pt using his insulin pump and providing us his glucose number and how much he is being bolused. Pt preference to use his pump, which I feel is reasonable given how well his glucose is currently. NSTEMI * troponins up to 2250 * on heparin gtt * Left heart cath PCI to 70% lesion to LAD. * continue ASA, metoprolol succinate. No ACEi, ARB, ARNI given CKD * D-dimer normal. Low pretest probability for PE, dc VQ * Echo shows an EF 60%. Last echo was in June and EF at that time was 55%. * Meds with ASA, clopidogrel, atorvastatin. ANN on CKD4 * improved * nephrology following * Temporary RIJ HD catheter placed 01/22. * Pt received HD on 01/22. Acute hypoxic respiratory failure * pulse ox down to 78%. * ABG cw metabolic acidosis. Started on BiPAP, since weaned down to Airvo. * Consult pulm for further input Metabolic acidosis * 2/2 CKD. Chronic conditions: * History of anxiety; * Essential hypertension: amlodipine, metoprolol succinate * Hyperlipidemia: continue statin VTE prophylaxis: not indicated as he is already anticoagulated. Charges/Coding Visit Charges Inpatient E&M: 96584 Subs Hosp L3
--- NOTE | 2024-01-24 08:54 | NURSING ---
Addendum entered by Lamar Blackwell 01/24/24 09:27: pt's insulin pump delivered 0.5 units of insulin per patient Original Note: Pt's Dexcom reading blood sugar 119
[2024-01-24] MEDS: Pantoprazole Sodium 40 MG in 0.9% Normal Saline (100mL MB+) 100 ML 330 MG IV (08:55)
[2024-01-24] MEDS: Aspirin E.C. 81 MG Tablet PO (09:02)
[2024-01-24] MEDS: amLODIPine 10 MG Tablet PO (09:05)
[2024-01-24] MEDS: Metoprolol(XL)Succ 25 MG Tablet PO (09:05)
[2024-01-24] MEDS: Clopidogrel Bisulfate 75 MG Tablet PO (09:05)
--- NOTE | 2024-01-24 10:00 | EKG12_ITS ---
Test Reason : morning ekg Blood Pressure : / mmHG Vent. Rate : 088 BPM Atrial Rate : 088 BPM P-R Int : 148 ms QRS Dur : 084 ms QT Int : 384 ms P-R-T Axes : 052 -23 098 degrees QTc Int : 464 ms Normal sinus rhythm Nonspecific T wave abnormality Prolonged QT Abnormal ECG When compared with ECG of 23-JAN-2024 13:20, MANUAL COMPARISON REQUIRED, DATA IS UNCONFIRMED Confirmed by MELISSA LACEY, DANIELLE ([id number]), supervising editor trailer ADRIANA MANJARREZ ([id number]) on 01/26/2024 10:00:48 AM Referred By: Jemal Confirmed By:DANIELLE TORRES MD
--- NOTE | 2024-01-24 11:04 | CPS ---
went to check airvo and nurse david stated she put him on highflow to give him break and patient is laying on side 100 sat.
--- NOTE | 2024-01-24 12:10 | NURSING ---
Dexcom reading 140, our machine reading 112. insulin pump delivering 1.3 units of insulin per patient
--- NOTE | 2024-01-24 12:24 | PCM.PN.CARD ---
Subjective Subjective Patient seen and evaluated at bedside and discussed with the nursing staff No symptoms of chest pain reported Still having some back pain Objective Data Vital Signs: Vital Signs Temp Pulse Resp BP Pulse Ox O2 Del Method O2 Flow Rate 98.5 F 86 18 122/63 H 95 High Flow 12 01/24/24 12:00 01/24/24 12:00 01/24/24 12:00 01/24/24 12:00 01/24/24 12:00 01/24/24 12:00 01/24/24 12:00 FiO2 51 01/24/24 09:34 Oxygen Flow Rate (L/min) 12 Oxygen Delivery Method High Flow Weight: 212 lb 6.08 oz Body Mass Index (BMI) 29.7 Intake & Output: Intake and Output for Last 24 Hours 01/22/24 01/23/24 01/24/24 23:59 23:59 23:59 Intake Total 1000 / 1000 1230.07 / 1230.07 670 / 670 Output Total 2350 / 2350 450 / 450 Balance 1000 / 1000 -1119.93 / -1119.93 220 / 220 Lab / Micro Data 01/24/24 03:30 01/24/24 03:30 Labs: Laboratory Results - last 24 hr 01/23/24 04:45: Diff Path Review Reviewed 01/23/24 11:47: Activated Clotting Time 177 H 01/23/24 12:10: Activated Clotting Time 250 H 01/23/24 13:02: POC Glucose 100 01/23/24 16:47: POC Glucose 82 01/23/24 17:51: Hep Bs Antigen Non-Reactive 01/23/24 21:10: POC Glucose 171 H 01/24/24 03:30: WBC 12.9 H, RBC 2.70 L, Hgb 7.3 L, Hct 22.2 L, MCV 82.2, MCH 27.0, MCHC 32.9, RDW Std Deviation 40.1, RDW Coeff of Marcella 13.4, Plt Count 283, MPV 9.5, Sodium 139, Potassium 3.9, Chloride 109 H, Carbon Dioxide 22.0, Anion Gap 9, BUN 49 H, Creatinine 4.40 H, Estim Creat Clear Calc 25.97, Est GFR (MDRD) Af Amer 19 L, Est GFR (MDRD) Non-Af 16 L, BUN/Creatinine Ratio 11.1, Glucose 100, Calcium 8.4 L, Phosphorus 4.9, Total Bilirubin 0.30, AST 49 H, ALT 26, Alkaline Phosphatase 53, B-Natriuretic Peptide 1030.6 H, Total Protein 5.9 L, Albumin 3.0 L, Globulin 2.9, Albumin/Globulin Ratio 1.0 Cardiology Labs/Tests 01/24/24 03:30: WBC 12.9 H, RBC 2.70 L, Hgb 7.3 L, Hct 22.2 L, MCV 82.2, MCH 27.0, MCHC 32.9, Plt Count 283, MPV 9.5, Sodium 139, Potassium 3.9, Chloride 109 H, Carbon Dioxide 22.0, Anion Gap 9, BUN 49 H, Creatinine 4.40 H, Est GFR (MDRD) Af Amer 19 L, Est GFR (MDRD) Non-Af 16 L, BUN/Creatinine Ratio 11.1, Glucose 100, Calcium 8.4 L, Phosphorus 4.9, Total Bilirubin 0.30, B-Natriuretic Peptide 1030.6 H Rhythm: EKG: ECHO: Stress Test: Cardiac Cath: PCI: CT Surgery: Holter monitor: EPS: PPM: CXR: Chest CT Scan: Radiography Diagnostic Testing: Radiology Impression Echocardiogram 01/23/24 07:55 Interpretation Summary The estimated ejection fraction is 60 %. Mild (1+) mitral valve insufficiency. Mild apical Hypokinesia The study was technically difficult. Ordering Physician: Garrison Joaquin Referring Physician: PEG PCP Performed By: Anupama Morin, UNRULYCS, RVT Chest X-Ray 01/23/24 14:45 IMPRESSION: The tip of the right temporary dialysis catheter is at the junction of the superior vena cava and right atrium. Borderline cardiomegaly. Mild vascular congestion. Electronically Signed: Neeraj Brown MD at 15:07 EDT , Physical Exam Cardio Cardio Narrative: Patient alert orientated not in acute distress and has been stable hemodynamically. Review of the registered nurse cardiac telemetry showed underlying normal sinus rhythm. Cardiac exam S1-S2 normal no systolic or diastolic murmur Chest examination clear to auscultation bilateral Examination lower extremity no lower extremity edema Pedal pulses palpable. Assessment & Plan Assessment/Plan (1) CKD (chronic kidney disease), stage V: (2) Overweight (BMI 25.0-29.9): (3) NSTEMI, initial episode of care: (4) Elevated troponin: (5) Diabetic ketoacidosis: QUALIFIERS: Diabetes mellitus type: type 1 Diabetes mellitus complication detail: without coma Qualified Code(s): E10.10 - Type 1 diabetes mellitus with ketoacidosis without coma (6) Hypertension: QUALIFIERS: Hypertension type: unspecified Qualified Code(s): I10 - Essential (primary) hypertension (7) ESRF (end stage renal failure): (8) CKD (chronic kidney disease): QUALIFIERS: Chronic kidney disease stage: stage 3 (moderate) Chronic kidney disease stage 3 subtype: stage 3a (GFR 45-59) Qualified Code(s): N18.31 - Chronic kidney disease, stage 3a (9) DKA (diabetic ketoacidoses): QUALIFIERS: Diabetes mellitus type: type 1 Diabetes mellitus complication detail: without coma Qualified Code(s): E10.10 - Type 1 diabetes mellitus with ketoacidosis without coma PLAN: Cardiac care plan recommendations; 43-year-old patient with diabetes mellitus, hypertension End-stage renal disease on hemodialysis Presented with symptoms of chest pain Has significant elevated high sensitive troponins With clinical diagnosis of non-ST elevation [place] Underwent cardiac catheterization which showed multivessel diffuse atherosclerosis And he underwent successful PCI of mid LAD using drug-eluting stent. Patient had echocardiogram which showed LV function preserved with mild apical hypokinesia. Patient been dialyzed yesterday And his oxygen saturation was low requiring BiPAP. Also noted patient has DKA improved. Troponin level was significant elevated up to 2250. From cardiac standpoint we will continue on dual antiplatelet therapy with aspirin, clopidogrel Metoprolol succinate and statin. Noted his oxygen saturations on the pulse oximeter was around 78 and the ABG consistent with metabolic acidosis. And patient started on BiPAP. And currently he has been on nasal cannula and maintaining a normal oxygen saturation. From cardiac standpoint recommendation would be to continue current cardiac medication No further interventional plan at this point. Once discharged to follow-up with primary governor assembler hydraulic here for continuation of cardiac care Also will set up the patient for cardiac rehab program at the [facility]. Rodolfo Dockery MD,FACC,[facility]
[2024-01-24 12:28] LABS: Bedside Glucose 115 mg/dL (74-106)
--- NOTE | 2024-01-24 15:53 | PCMCONS.TICU ---
HPI Consult Data Date of Consult: 01/24/24 HPI Narrative HPI Narrative: LAURIE GONZALES, is a 43 M who presents [facility] Medical History (Updated 01/23/24 @ 10:44 by RAVINDER Tanner) Acute kidney injury Hypertension Pre-op testing ESRF (end stage renal failure) Stage 4 chronic kidney disease Diabetes mellitus type 1 Insulin pump titration Presence of insulin pump CKD (chronic kidney disease) Obesity Abscess Charcot foot due to diabetes mellitus Type 1 diabetes mellitus Home Medications ?Medication ?Instructions ?Recorded ?Last Taken ?Type blood sugar diagnostic (FreeStyle #100 ea 10/08/21 Unknown Rx Lite Strips) blood-glucose meter,continuous #1 ea 10/08/21 Unknown Rx (Dexcom G6 Patternmaker Metal Bench) lancing device with lancets kit #100 ea 11/26/21 Unknown Rx (OneMunch On Meuch Delica Plus Lancing Device kit) pen needle, diabetic 32 gauge x #150 ea 02/26/22 Unknown Rx 5/32 (BD Ultra-Fine Carol Pen Needle) alcohol swabs (BD Alcohol Swabs) 1 pad topical .4 times daily #200 05/20/22 Unknown Rx ea furosemide 40 mg tablet 80 mg PO BID 07/30/23 08/01/23 History insulin aspart U-100 100 unit/mL 80 unit (0.8 mL) continuous 08/18/23 Unknown Rx subcutaneous solution (Novolog subcutaneous infusion .continuous U-100 Insulin aspart) #72 mL rosuvastatin 10 mg tablet 10 mg PO DAILY #90 tabs 11/07/23 Unknown Rx amlodipine 10 mg tablet 10 mg PO DAILY #90 tabs 11/17/23 Unknown Rx metoprolol succinate 25 mg 25 mg PO DAILY #30 tabs 11/27/23 Unknown Rx tablet,extended release 24 hr insulin pump cart,automated,BT #30 ea 01/06/24 Unknown Rx blood-glucose sensor (Dexcom G6 #9 ea 01/16/24 Unknown Rx Sensor device) blood-glucose transmitter (Dexcom #1 ea 01/16/24 Unknown Rx G6 Transmitter device) Allergy/AdvReac Type Severity Reaction Status Date / Time No Known Allergies Allergy Verified 01/22/24 20:12 Family History Mother Diabetes Thyroid disorder Grandmother Diabetes Grandfather Diabetes Surgical History History of surgery on lower extremity Social History Smoking Status: Never smoker alcohol intake: never substance use type: does not use Objective Data Objective Data Vital Signs: Vital Signs Last response Temperature 36.7 C 01/24/24 14:00 Temperature Source Temporal 01/24/24 14:00 Pulse Rate 93 01/24/24 15:00 Respiratory Rate 17 01/24/24 15:00 Respiratory Effort Normal, Non-Labored 01/24/24 12:00 Respiratory Depth Normal 01/24/24 12:00 Respiratory Pattern Normal 01/24/24 12:00 Blood Pressure 119/66 01/24/24 15:00 Blood Pressure Mean 83 01/24/24 15:00 Blood Pressure Source Monitor 01/24/24 15:00 Blood Pressure Position Semi-Fowlers 01/24/24 15:00 Blood Pressure Location Right Arm 01/24/24 15:00 Pulse Ox 98 01/24/24 15:00 Oxygen Delivery Method Airvo 01/24/24 15:00 Oxygen Flow Rate (L/min) 40 01/24/24 15:00 Fraction of Inspired Oxygen (FIO2) 48 01/24/24 15:00 I&O: I&O Last 24 Hours 01/23/24 01/24/24 01/24/24 23:59 11:59 23:59 Intake Total 300 / 1230.07 670 / 670 Output Total 1850 / 2350 300 / 450 150 / 450 Balance -1550 / -1119.93 370 / 220 -150 / 220 I&O: Total Stay 01/22/24 20:08 thru 01/24/24 12:00 Intake Total 2900.07 Output Total 2800 Balance 100.07 Current Meds Ordered / Administered: Current meds ordered / Administered Generic Name Dose Route Start Last Admin Trade Name Freq PRN Reason Stop Dose Admin Acetaminophen 650 mg 01/23/24 15:23 01/23/24 21:15 Acetaminophen 325 Mg Tablet PO 650 mg Q4H PRN PRN Administration Pain 1-10 or Fever Amlodipine Besylate 10 mg 01/23/24 10:00 01/24/24 09:05 Amlodipine 10 Mg Tablet PO 10 mg DAILY CHILO Administration Protocol Aspirin 81 mg 01/24/24 08:00 01/24/24 09:02 Aspirin E.C. 81 Mg Tablet PO 81 mg BREAKFAST CHILO Administration Atorvastatin Calcium 20 mg 01/23/24 22:00 01/23/24 21:15 Atorvastatin Calcium 20 Mg Tablet PO 20 mg QHS CHILO Administration Atropine Sulfate 0.5 mg 01/23/24 12:59 Atropine Sulfate 1 Mg/10 Ml Syringe IV UD PRN HR <50 bpm Clopidogrel Bisulfate 75 mg 01/23/24 00:36 01/24/24 09:05 Clopidogrel Bisulfate 75 Mg Tablet PO 75 mg DAILY CHILO Administration Glucagon 1 mg 01/23/24 07:39 Glucagon 1 Mg/Ml Syringe IM X1 PRN Hypoglycemia Protocol Heparin Sodium (Porcine) 1,300 units 01/23/24 13:54 01/23/24 14:47 Heparin 10,000 Units/10 Ml Vial IV 1,300 units PRN PRN Administration Dialysis Line Hydralazine HCl 10 mg 01/23/24 01:21 Hydralazine 20 Mg/Ml Vial IV Q6H PRN PRN SBP GREATER THAN 160 Protocol Hydroxyzine HCl 25 mg 01/23/24 01:21 Hydroxyzine 50 Mg/Ml Vial IM Q6H PRN PRN ANXIETY Pantoprazole Sodium 40 mg/ 110 mls @ 330 mls/hr 01/23/24 10:00 01/24/24 09:23 Sodium Chloride IV Infused Q24 CHILO Infusion Dextrose 250 mls @ 999 mls/hr 01/23/24 01:21 Dextrose 10%-Water IV .Q16M PRN Hypoglycemic Protocol Protocol Metoprolol Succinate 25 mg 01/23/24 10:00 01/24/24 09:05 Metoprolol(Xl)Succ 25 Mg Tablet PO 25 mg DAILY CHILO Administration Protocol Morphine Sulfate 2 mg 01/23/24 01:21 01/24/24 09:13 Morphine 2 Mg/Ml Syringe IV 2 mg Q4H PRN PRN Administration Pain Score 6-10 Ondansetron HCl 4 mg 01/23/24 01:21 01/24/24 13:16 Ondansetron 4 Mg/2 Ml Vial IV 4 mg Q6H PRN PRN Administration NAUSEA/VOMITING Oxycodone HCl 5 mg 01/23/24 15:23 01/23/24 21:15 Oxycodone 5 Mg Tablet PO 5 mg Q4H PRN PRN Administration Pain Score 6-10 Promethazine HCl 25 mg 01/23/24 01:21 Promethazine 25 Mg/Ml Syringe IM Q4H PRN PRN BREAKTHROUGH NAUSEA Sodium Chloride 10 - 40 ml 01/23/24 01:29 01/24/24 13:16 0.9% Saline Lock 10 Ml Syringe IV 10 ml UD PRN Administration SALINE FLUSH Sodium Chloride 500 ml 01/23/24 12:59 0.9% Normal Saline 500 Ml Iv.Soln. IV BOLUS PRN VASO-VAGAL PROTOCOL Lab / Micro Data 01/24/24 03:30 01/24/24 03:30 Labs: Laboratory Results - last 24 hr 01/23/24 16:47: POC Glucose 82 01/23/24 17:51: Hep Bs Antigen Non-Reactive 01/23/24 21:10: POC Glucose 171 H 01/24/24 03:30: WBC 12.9 H, RBC 2.70 L, Hgb 7.3 L, Hct 22.2 L, MCV 82.2, MCH 27.0, MCHC 32.9, RDW Std Deviation 40.1, RDW Coeff of Marcella 13.4, Plt Count 283, MPV 9.5, Sodium 139, Potassium 3.9, Chloride 109 H, Carbon Dioxide 22.0, Anion Gap 9, BUN 49 H, Creatinine 4.40 H, Estim Creat Clear Calc 25.97, Est GFR (MDRD) Af Amer 19 L, Est GFR (MDRD) Non-Af 16 L, BUN/Creatinine Ratio 11.1, Glucose 100, Calcium 8.4 L, Phosphorus 4.9, Total Bilirubin 0.30, AST 49 H, ALT 26, Alkaline Phosphatase 53, B-Natriuretic Peptide 1030.6 H, Total Protein 5.9 L, Albumin 3.0 L, Globulin 2.9, Albumin/Globulin Ratio 1.0 01/24/24 12:08: POC Glucose 115 H Imaging Radiology Impression Echocardiogram 01/23/24 07:55 Interpretation Summary The estimated ejection fraction is 60 %. Mild (1+) mitral valve insufficiency. Mild apical Hypokinesia The study was technically difficult. Ordering Physician: Garrison Joaquin Referring Physician: PEG PCP Performed By: Anupama Morin, HUNTER, RVT Assessment and Plan . Assessment and plan: HPI 43 yo obese chronically ill diabetic man admitted 01/23/24 w/ CP and ECG changes c/w myocardial ischemia. Noted elevation of cardiac enzymes as well. He underwent LHC - LVEDP 23, significant CAD, including stenotic mid-LAD ==> s/p PCI/PAXTON He developed respiratory distress and required supplemental O2 and NIV support in the cardiac laboratory phlebotomist. Subsequently admitted to ICU. pCXR reveals interstitial edema. BNP around 1000 He also has a h/o advanced renal insufficiency - vascular HD access placed 01/23/24 - HD initiated w/ 1000 mL UF removed TTE performed and reveals WMA w/ preserved LVSF He is currently breathing O2 via HHFNC. He is reasonably comfortable at rest - significant dyspnea when lying flat. PHYSICAL EXAM GEN NAD VS as above HEENT HHFNC NECK obese COR RRR CHEST coarse ABD obese EXT minimal edema SKIN w/d MADAY NF ASSESSMENT 1. Acute respiratory failure requiring high-flow supplemental O2 and NIV support 2. CHF / pulmonary edema - elevated LVEDP 3. Acute [place] - s/p PCI/PAXTON LAD 4. ESRD 5. DM / obesity 6. Anemia TREATMENT PLAN -supplemental O2 -NIV support as needed -strongly recommend additional CLINICAL LABORATORY MANAGER w/ UF - defer to Renal Service -anti-PLT -sq UFH -sq insulin -would probably try to raise HGB a bit w/ TX given ACS - would not give RBC until repeat HD Critical Care Time: 60 min The entirety of this encounter was done via Telemedicine
[2024-01-24] MEDS: Furosemide 100 MG/10 ML Vial IV (16:44)
--- NOTE | 2024-01-24 17:20 | NURSING ---
Per patient's dexcom, blood sugar 111. No insulin given
[2024-01-24] MEDS: Heparin Injection (Vial) 5,000 UNIT/ML VIAL 5000 UNIT SC (21:15)
[2024-01-24] MEDS: Atorvastatin Calcium 20 MG Tablet PO (21:15)
--- NOTE | 2024-01-24 22:09 | NURSING ---
Patient's dexcom reads 141. Patient's insulin pump gave him 1 unit of insulin.
[2024-01-25] VITALS (32 sets, daily range): BP systolic 109–148; BP diastolic 59–85; PULSE 77–100; RESP 12–24; TEMP 36.9–39.2; O2SAT 87–99; BMI 29.7
[2024-01-25] MEDS: 0.9% Saline Lock 10 ML Syringe IV ×8 (05:43→21:22)
[2024-01-25] MEDS: Acetaminophen 325 MG Tablet 650 MG PO ×2 (05:43→20:08)
[2024-01-25 06:05] LABS: Absolute Lymphocyte Count 1.06 X10^3/uL (0.83-4.51); Absolute Neutrophil Count 12.2 X10^3/uL (2.0-7.7); Basophil# 0.05 X10^3/uL; Basophil% 0.3 % (0-1); Eosinophil# 0.06 X10^3/uL; Eosinophils% 0.4 % (0-5); Hematocrit 22.2 % (40-54); Hemoglobin 7.2 g/dL (13.0-16.5); Lymphocyte # 1.06 X10^3/ul (0.83-4.51); Lymphocyte % 7.1 % (19-41); Mean Corp Hgb Conc 32.4 g/dL (32-36); Mean Corpuscular Hgb 27.2 pg (27.0-32.0); Mean Corpuscular Volume 83.8 fL (80-94); Mean Platelet Vol. 9.2 fl (6.2-12.0); Monocyte# 1.44 X10^3/uL; Monocyte% 9.7 % (0-10); NRBC Flagged by Analyzer 0 % (0-5); Neutrophil # 12.16 X10^3/uL (2.7-7.7); Platelet Count 262 K/mm3 (150-450); RBC Distribution Width CV 13.3 % (11.6-14.6); RBC Distribution Width SD 40.8 fl (35.1-43.9); Red Blood Count 2.65 M/mm3 (4.6-6.2); White Blood Count 14.8 K/mm3 (4.4-11.0)
[2024-01-25 06:42] LABS: Anion Gap 7 (5-15); BUN 59 mg/dL (7-18); BUN/Creat Ratio 8.8 RATIO (10-20); Calcium,Total 8.7 mg/dL (8.5-10.1); Chloride 105 mmol/L (98-107); Creatinine, Serum 6.71 mg/dL (0.70-1.30); EST Glomerular Filtration Rate 10 mL/min (>60); Est Glom Filt Rate - Afr Amer 12 mL/min (>60); Estimated Creatinine Clearance 17.17 ml/min; Glucose 83 mg/dL (74-106); Potassium 4.5 mmol/L (3.5-5.1); Sodium Level 134 mmol/L (136-145)
--- NOTE | 2024-01-25 07:04 | PN.HOSP_ITS ---
Reason for Visit Reason for Visit: Diagnoses Type 1 diabetes mellitus with ketoacidosis without coma (01/23/24) Type 1 diabetes mellitus with unspecified complications (01/23/24) Other specified diabetes mellitus with ketoacidosis without coma (01/23/24) Overweight (01/23/24) Essential (primary) hypertension (01/23/24) Non-ST elevation (NSTEMI) myocardial infarction (01/23/24) Heart failure, unspecified (01/23/24) Acute kidney failure, unspecified (01/23/24) Chronic kidney disease, stage 3a (01/23/24) Chronic kidney disease, stage 5 (01/23/24) End stage renal disease (01/23/24) Chronic kidney disease, unspecified (01/23/24) Other abnormalities of breathing (01/23/24) Other specified abnormal findings of blood chemistry (01/23/24) Subjective Subjective Still on high-flow oxygen. Objective Data Objective Data Vital Signs: Vital Signs Temp Pulse Resp BP Pulse Ox O2 Del Method O2 Flow Rate 37.8 C H 94 16 128/75 H 94 Airvo 40 01/25/24 06:00 01/25/24 07:00 01/25/24 07:00 01/25/24 07:00 01/25/24 07:00 01/25/24 07:00 01/25/24 07:00 FiO2 63 01/25/24 07:00 Oxygen Flow Rate (L/min) 40 Oxygen Delivery Method Airvo Weight: 96.5 kg Body Mass Index (BMI) 29.7 Intake & Output: Intake and Output for Last 24 Hours 01/23/24 01/24/24 01/25/24 23:59 23:59 23:59 Intake Total 1230.07 / 1230.07 790 / 1000 610 / 610 Output Total 2350 / 2350 600 / 600 Balance -1119.93 / -1119.93 190 / 400 610 / 610 Lab / Micro Data 01/25/24 05:45 01/25/24 05:45 Labs: Laboratory Results - last 24 hr 01/24/24 12:08: POC Glucose 115 H 01/25/24 05:45: WBC 14.8 H, RBC 2.65 L, Hgb 7.2 L, Hct 22.2 L, MCV 83.8, MCH 27.2, MCHC 32.4, RDW Std Deviation 40.8, RDW Coeff of Marcella 13.3, Plt Count 262, MPV 9.2, Immature Gran % (Auto) 0.500, Neut % (Auto) 82.0 H, Lymph % (Auto) 7.1 L, [place] % (Auto) 9.7, Eos % (Auto) 0.4, Baso % (Auto) 0.3, Absolute Neuts (auto) 12.2 H, Absolute Lymphs (auto) 1.06, Nucleated RBC % 0, Sodium 134 L, Potassium 4.5, Chloride 105, Carbon Dioxide 23.0, Anion Gap 7, BUN 59 H, Creatinine 6.71 H , Estim Creat Clear Calc 17.17, Est GFR (MDRD) Af Amer 12 L, Est GFR (MDRD) Non- Af 10 L, BUN/Creatinine Ratio 8.8 L, Glucose 83, Calcium 8.7 Physical Exam Const alert and no apparent distress HEENT head/scalp atraumatic and moist oral mucous membranes Neck Neck Narrative: RIJ TLC w/o erythema/discharge. Resp normal respiratory effort, no retractions, no use of accessory muscles and clear to auscultation bilaterally Cardio regular rate, regular rhythm, S1 normal heart sound and S2 normal heart sound Extremity normal to inspection, full ROM and no clubbing, cyanosis or edema Neuro moves all extremities and no focal motor deficits Sensorium / Orientation: awake and alert Psych affect normal Assessment & Plan Assessment/Plan (1) Diabetic ketoacidosis: QUALIFIERS: Diabetes mellitus complication detail: without coma D iabetes mellitus type: type 1 Qualified Code(s): E10.10 - Type 1 diabetes mellitus with ketoacidosis without coma (2) Acute kidney injury superimposed on chronic kidney disease: (3) DM type 1 (diabetes mellitus, type 1): QUALIFIERS: Diabetes mellitus complication status: with unspecified complications Qualified Code(s): E10.8 - Type 1 diabetes mellitus with unspecified complications (4) Congestive heart failure of unknown etiology: PLAN: Plan DKA in DM type I * POA, now resolved. * Pt using his insulin pump and providing us his glucose number and how much he is being bolused. Pt preference to use his pump, which I feel is reasonable given how well his glucose is currently. NSTEMI * troponins up to 2250 * Left heart cath PCI to 70% lesion to LAD. * D-dimer normal. Low pretest probability for PE, dc VQ * Echo shows an EF 60%. Last echo was in June and EF at that time was 55%. * Meds with ASA, clopidogrel, atorvastatin, metoprolol succinate. No ACEi, ARB, ARNI given CKD ANN on CKD4 * improved * nephrology following * Temporary RIJ HD catheter placed 01/22. * Pt received HD on 01/22. * DW Dr. Sue, pt given 100mg IV furosemide and 500mg of chlorlathidone today. Pt may need HD today, but will observe for response. If stable, then plan would be for HD with UF on 01/25. Acute hypoxic respiratory failure * pulse ox down to 78%. * ABG cw metabolic acidosis. Started on BiPAP, since weaned down to Airvo. * Pulm input appreciated. Metabolic acidosis * 2/2 CKD. Acute blood loss anemia * hemoglobin has dropped from 10 to 7.2. * check hemoccult, B12, folate. * TSH 1.1. Iron low. * Ordered 1 unit PRBC, 100 of Iron sucrose. Chronic conditions: * History of anxiety; * Essential hypertension: amlodipine, metoprolol succinate * Hyperlipidemia: continue statin VTE prophylaxis: SCDs Charges/Coding Visit Charges Inpatient E&M: 26233 Subs Hosp L3
--- NOTE | 2024-01-25 07:52 | PN.RENAL_ITS ---
Subjective Subjective Following for ESRD. The patient is still requiring Airvo. Oxygen requirement is increased overnight. However, he denies chest pain or current dyspnea. The patient was nauseated overnight. Nausea has resolved this morning. Objective Data Objective Data Vital Signs: Vital Signs Temp Pulse Resp BP Pulse Ox O2 Del Method O2 Flow Rate 100.0 F H 78 16 128/75 H 99 Airvo 40 01/25/24 06:00 01/25/24 07:19 01/25/24 07:19 01/25/24 07:00 01/25/24 07:19 01/25/24 07:00 01/25/24 07:00 FiO2 54 01/25/24 07:19 Oxygen Flow Rate (L/min) 40 Oxygen Delivery Method Airvo Weight: 96.5 kg Body Mass Index (BMI) 29.7 Intake & Output: Intake and Output for Last 24 Hours 01/23/24 01/24/24 01/25/24 23:59 23:59 23:59 Intake Total 1230.07 / 1230.07 790 / 1000 610 / 610 Output Total 2350 / 2350 600 / 600 Balance -1119.93 / -1119.93 190 / 400 610 / 610 Lab / Micro Data 01/25/24 05:45 01/25/24 05:45 Labs: Laboratory Results - last 24 hr 01/24/24 12:08: POC Glucose 115 H 01/25/24 05:45: WBC 14.8 H, RBC 2.65 L, Hgb 7.2 L, Hct 22.2 L, MCV 83.8, MCH 27.2, MCHC 32.4, RDW Std Deviation 40.8, RDW Coeff of Marcella 13.3, Plt Count 262, MPV 9.2, Immature Gran % (Auto) 0.500, Neut % (Auto) 82.0 H, Lymph % (Auto) 7.1 L, [place] % (Auto) 9.7, Eos % (Auto) 0.4, Baso % (Auto) 0.3, Absolute Neuts (auto) 12.2 H, Absolute Lymphs (auto) 1.06, Nucleated RBC % 0, Sodium 134 L, Potassium 4.5, Chloride 105, Carbon Dioxide 23.0, Anion Gap 7, BUN 59 H, Creatinine 6.71 H , Estim Creat Clear Calc 17.17, Est GFR (MDRD) Af Amer 12 L, Est GFR (MDRD) Non- Af 10 L, BUN/Creatinine Ratio 8.8 L, Glucose 83, Calcium 8.7 Physical Exam Narrative Alert and orient x 3, no apparent distress S1, S2, RRR Lungs clear anteriorly and posteriorly. No wheezes, rhonchi or rales Abdomen soft, nontender No edema Left forearm AV fistula with positive thrill and bruit. Fistula is small. Assessment & Plan Assessment/Plan (1) CKD (chronic kidney disease), stage V: (2) Elevated troponin: (3) Hypertension: QUALIFIERS: Hypertension type: unspecified Qualified Code(s): I10 - Essential (primary) hypertension PLAN: Plan Impression/Plan: The patient is a 43-year-old male with past history of type 1 diabetes mellitus, hypertension, Charcot's foot, hyperlipidemia and chronic kidney disease stage G4. The patient is followed in nephrology office by my partner, Dr. Diaz. Patient has been prepared for ESRD and had AV fistula placed in July 2023. Patient presented to hospital on 01/23/2024 with chest pain. The patient was diagnosed with NSTEMI. He underwent LHC on 01/23/2024 but did not require intervention. Nephrology is following for ANN on CKD. Acute kidney injury on chronic kidney disease stage G5. Patient likely now has ESRD. Baseline serum creatinines been around 5.00 mg/dL prior to this admission. Patient has been prepared for ESRD by Dr. Diaz. He is status post AV fistula placement in July 2023. Serum creatinine has increased to 6.20 mg/dL on 01/22/2024. With hydration, serum creatinine was still on 01/23/2024 today at 5.70 mg/dL. Patient is volume overloaded. Therefore, we decided to proceed with hemodialysis. Unfortunately, AV fistula is too immature to be used. Therefore, temporary dialysis catheter was placed by Dr. Joaquin. I appreciate Dr. Joaquin's help with establishing vascular access. We dialyzed patient for 3 hours on 01/23/2024. We will use slower blood flow for first dialysis treatment. He is not hyperkalemic or acidotic today. Therefore, we will plan on dialyzing patient tomorrow. Will work with CM tomorrow to start looking for outpatient dialysis unit as well. Acute hypoxic respiratory failure. Patient still requiring high flow oxygen. Urine output has dropped off in the last 24 hours. Will try furosemide 100 mg IV as well as chlorothiazide 500 mg IV today to see if we can diurese the patient. We will plan on more ultrafiltration tomorrow with hemodialysis.
--- NOTE | 2024-01-25 08:19 | NURSING ---
blood sugar is 102 per dexcom
[2024-01-25 08:24] LABS: Ferritin 63 ng/mL (26-388); Iron 13 ug/dL (65-175); Iron Binding Capacity,Total 232 ug/dL (250-450); PERCENT IRON SATURATION 5.6 % (15.0-55.0)
[2024-01-25] MEDS: Metoprolol(XL)Succ 25 MG Tablet PO (08:25)
[2024-01-25] MEDS: Pantoprazole Sodium 40 MG in 0.9% Normal Saline (100mL MB+) 100 ML 330 MG IV (08:26)
[2024-01-25] MEDS: Clopidogrel Bisulfate 75 MG Tablet PO (08:26)
[2024-01-25] MEDS: amLODIPine 10 MG Tablet PO (08:26)
[2024-01-25] MEDS: Aspirin E.C. 81 MG Tablet PO (08:26)
[2024-01-25] MEDS: Furosemide 100 MG/10 ML Vial IV (09:24)
--- NOTE | 2024-01-25 10:00 | EKG12_ITS ---
Test Reason : pci Blood Pressure : / mmHG Vent. Rate : 092 BPM Atrial Rate : 092 BPM P-R Int : 142 ms QRS Dur : 080 ms QT Int : 356 ms P-R-T Axes : 053 052 108 degrees QTc Int : 440 ms Normal sinus rhythm Low voltage QRS ST & T wave abnormality, consider lateral ischemia Abnormal ECG When compared with ECG of 24-JAN-2024 05:14, MANUAL COMPARISON REQUIRED, DATA IS UNCONFIRMED Confirmed by MELISSA LACEY, DANIELLE ([id number]), brands editor ADRIANA MANJARREZ ([id number]) on 01/26/2024 10:00:23 AM Referred By: Confirmed By:DANIELLE TORRES MD
--- NOTE | 2024-01-25 11:27 | NURSING ---
dexcom reading 149. 0.85 units of insulin delivered per patient insulin pump
[2024-01-25] MEDS: Sodium Ferric Gluconat/Sucrose 125 MG in 0.9% Normal Saline (100mL Bag) 100 ML 110 MG IV (13:00)
--- NOTE | 2024-01-25 13:26 | PN.CARD_ITS ---
Subjective Subjective No events noted from last night in particular patient had no symptoms of chest pain Objective Data Vital Signs: Vital Signs Temp Pulse Resp BP Pulse Ox O2 Del Method O2 Flow Rate 98.9 F 84 18 133/68 H 97 Airvo 40 01/25/24 12:00 01/25/24 13:00 01/25/24 13:00 01/25/24 13:00 01/25/24 13:00 01/25/24 13:00 01/25/24 13:00 FiO2 50 01/25/24 13:00 Oxygen Flow Rate (L/min) 40 Oxygen Delivery Method Airvo Weight: 212 lb 11.937 oz Body Mass Index (BMI) 29.7 Intake & Output: Intake and Output for Last 24 Hours 01/23/24 01/24/24 01/25/24 23:59 23:59 23:59 Intake Total 1230.07 / 1230.07 790 / 1000 1080 / 1080 Output Total 2350 / 2350 600 / 600 125 / 125 Balance -1119.93 / -1119.93 190 / 400 955 / 955 Lab / Micro Data 01/25/24 05:45 01/25/24 05:45 Labs: Laboratory Results - last 24 hr 01/25/24 05:45: WBC 14.8 H, RBC 2.65 L, Hgb 7.2 L, Hct 22.2 L, MCV 83.8, MCH 27.2, MCHC 32.4, RDW Std Deviation 40.8, RDW Coeff of Marcella 13.3, Plt Count 262, MPV 9.2, Immature Gran % (Auto) 0.500, Neut % (Auto) 82.0 H, Lymph % (Auto) 7.1 L, [place] % (Auto) 9.7, Eos % (Auto) 0.4, Baso % (Auto) 0.3, Absolute Neuts (auto) 12.2 H, Absolute Lymphs (auto) 1.06, Nucleated RBC % 0, Sodium 134 L, Potassium 4.5, Chloride 105, Carbon Dioxide 23.0, Anion Gap 7, BUN 59 H, Creatinine 6.71 H , Estim Creat Clear Calc 17.17, Est GFR (MDRD) Af Amer 12 L, Est GFR (MDRD) Non- Af 10 L, BUN/Creatinine Ratio 8.8 L, Glucose 83, Calcium 8.7, Iron 13 L, TIBC 232 L, Iron Saturation 5.6 L, Ferritin 63, Folate 6.90 01/25/24 12:55: Crossmatch See Detail Cardiology Labs/Tests 01/25/24 05:45: WBC 14.8 H, RBC 2.65 L, Hgb 7.2 L, Hct 22.2 L, MCV 83.8, MCH 27.2, MCHC 32.4, Plt Count 262, MPV 9.2, Immature Gran % (Auto) 0.500, Neut % (Auto) 82.0 H, Lymph % (Auto) 7.1 L, [place] % (Auto) 9.7, Eos % (Auto) 0.4, Baso % (Auto) 0.3, Absolute Neuts (auto) 12.2 H, Nucleated RBC % 0, Sodium 134 L, Potassium 4.5, Chloride 105, Carbon Dioxide 23.0, Anion Gap 7, BUN 59 H, C reatinine 6.71 H, Est GFR (MDRD) Af Amer 12 L, Est GFR (MDRD) Non-Af 10 L, B UN/Creatinine Ratio 8.8 L, Glucose 83, Calcium 8.7, Iron 13 L, TIBC 232 L, Iron Saturation 5.6 L, Ferritin 63 Rhythm: EKG: ECHO: Stress Test: Cardiac Cath: PCI: CT Surgery: Holter monitor: EPS: PPM: CXR: Chest CT Scan: Physical Exam Cardio Cardio Narrative: Cardiac rhythm is sinus rhythm Cardiac exam S1-S2 regular No systolic or diastolic murmur Assessment & Plan Assessment/Plan (1) CKD (chronic kidney disease), stage V: (2) Acute kidney injury superimposed on chronic kidney disease: (3) Elevated troponin: (4) Diabetic ketoacidosis: QUALIFIERS: Diabetes mellitus type: type 1 Diabetes mellitus complication detail: without coma Qualified Code(s): E10.10 - Type 1 diabetes mellitus with ketoacidosis without coma (5) Acute non-ST elevation myocardial infarction (NSTEMI): PLAN: Plan Cardiac care plan; 43-year-old patient with history of diabetes mellitus Has DKA which resolved Patient has ANN on CKD, and has AV fistula as an outpatient by his utility bag assembler Dr. Diaz Started on dialysis. Following cardiac catheterization Patient has a non-ST elevation PR with significant elevated high sensitive troponins Echocardiographic evaluation showed LV function is preserved with mild apical hypokinesia He underwent cardiac catheterization identified multivessel diffuse atherosclerosis typical of diabetic patients. Patient underwent PCI of culprit which is mid LAD. Diffuse disease of around 70% using drug-eluting stent [place] Successfully with excellent result and maintenance of CHIDI-3 flow in large LAD He had no further episode of chest pain. While in the Insurance Marketing Rep he was short of breath requiring BiPAP Patient has acute hypoxic respiratory failure with a drop in his pulse oxygen saturation and ABG was consistent with metabolic acidosis Treated with BiPAP and has been on Airvo From cardiac standpoint I discussed in detail cardiac care plan with the nursing staff Will continue on dual antiplatelet therapy including aspirin and clopidogrel. For nearly 1 year Will defer to the nephrology and the medical team for management of his ANN and CKD as well as his symptoms of shortness of breath Also noted patient has anemia with a drop of hemoglobin from 10-7.2. And was given 1 unit of blood transfusion. Other medical problem include hypertension well-controlled on current treatment with amlodipine metoprolol Hyperlipidemia and he is on high-dose statin. Patient to follow-up on discharge with the cardiology team/ Also will schedule for cardiac rehab program Today discussed cardiac care plan with the nursing staff in ICU Rodolfo Dockery MD,FACC,[facility]
--- NOTE | 2024-01-25 14:43 | PCM.PN.TICU ---
Objective Data Objective Data Vital Signs: Vital Signs Last response Temperature 37.1 C 01/25/24 14:00 Temperature Source Temporal 01/25/24 14:00 Pulse Rate 85 01/25/24 14:00 Respiratory Rate 19 H 01/25/24 14:00 Respiratory Effort Normal, Non-Labored 01/25/24 11:54 Respiratory Depth Normal 01/25/24 11:54 Respiratory Pattern Normal 01/25/24 11:54 Blood Pressure 133/71 H 01/25/24 14:00 Blood Pressure Mean 91 01/25/24 14:00 Blood Pressure Source Monitor 01/25/24 14:00 Blood Pressure Position Semi-Fowlers 01/25/24 14:00 Blood Pressure Location Right Arm 01/25/24 14:00 Pulse Ox 93 01/25/24 14:00 Oxygen Delivery Method Airvo 01/25/24 14:00 Oxygen Flow Rate (L/min) 40 01/25/24 14:00 Fraction of Inspired Oxygen (FIO2) 50 01/25/24 14:00 I&O: I&O Last 24 Hours 01/24/24 01/25/24 01/25/24 23:59 11:59 23:59 Intake Total 120 / 1000 1080 / 1190 110 / 1190 Output Total 300 / 600 125 / 125 Balance -180 / 400 955 / 1065 110 / 1065 I&O: Total Stay 01/22/24 20:08 thru 01/25/24 14:04 Intake Total 4210.07 Output Total 3075 Balance 1135.07 Current Meds Ordered / Administered: Current meds ordered / Administered Generic Name Dose Route Start Last Admin Trade Name Byron PRN Reason Stop Dose Admin Acetaminophen 650 mg 01/23/24 15:23 01/25/24 05:43 Acetaminophen 325 Mg Tablet PO 650 mg Q4H PRN PRN Administration Pain 1-10 or Fever Amlodipine Besylate 10 mg 01/23/24 10:00 01/25/24 08:26 Amlodipine 10 Mg Tablet PO 10 mg DAILY CHILO Administration Protocol Aspirin 81 mg 01/24/24 08:00 01/25/24 08:26 Aspirin E.C. 81 Mg Tablet PO 81 mg BREAKFAST CHILO Administration Atorvastatin Calcium 20 mg 01/23/24 22:00 01/24/24 21:15 Atorvastatin Calcium 20 Mg Tablet PO 20 mg QHS CHILO Administration Atropine Sulfate 0.5 mg 01/23/24 12:59 Atropine Sulfate 1 Mg/10 Ml Syringe IV UD PRN HR <50 bpm Clopidogrel Bisulfate 75 mg 01/23/24 00:36 01/25/24 08:26 Clopidogrel Bisulfate 75 Mg Tablet PO 75 mg DAILY CHILO Administration Glucagon 1 mg 01/23/24 07:39 Glucagon 1 Mg/Ml Syringe IM X1 PRN Hypoglycemia Protocol Heparin Sodium (Porcine) 1,300 units 01/23/24 13:54 01/23/24 14:47 Heparin 10,000 Units/10 Ml Vial IV 1,300 units PRN PRN Administration Dialysis Line Hydralazine HCl 10 mg 01/23/24 01:21 Hydralazine 20 Mg/Ml Vial IV Q6H PRN PRN SBP GREATER THAN 160 Protocol Hydroxyzine HCl 25 mg 01/23/24 01:21 Hydroxyzine 50 Mg/Ml Vial IM Q6H PRN PRN ANXIETY Pantoprazole Sodium 40 mg/ 110 mls @ 330 mls/hr 01/23/24 10:00 01/25/24 09:01 Sodium Chloride IV Infused Q24 CHILO Infusion Dextrose 250 mls @ 999 mls/hr 01/23/24 01:21 Dextrose 10%-Water IV .Q16M PRN Hypoglycemic Protocol Protocol Metoprolol Succinate 25 mg 01/23/24 10:00 01/25/24 08:25 Metoprolol(Xl)Succ 25 Mg Tablet PO 25 mg DAILY CHILO Administration Protocol Morphine Sulfate 2 mg 01/23/24 01:21 01/24/24 21:15 Morphine 2 Mg/Ml Syringe IV 2 mg Q4H PRN PRN Administration Pain Score 6-10 Ondansetron HCl 4 mg 01/23/24 01:21 01/24/24 20:16 Ondansetron 4 Mg/2 Ml Vial IV 4 mg Q6H PRN PRN Administration NAUSEA/VOMITING Oxycodone HCl 5 mg 01/23/24 15:23 01/23/24 21:15 Oxycodone 5 Mg Tablet PO 5 mg Q4H PRN PRN Administration Pain Score 6-10 Promethazine HCl 25 mg 01/23/24 01:21 Promethazine 25 Mg/Ml Syringe IM Q4H PRN PRN BREAKTHROUGH NAUSEA Sodium Chloride 10 - 40 ml 01/23/24 01:29 01/25/24 13:00 0.9% Saline Lock 10 Ml Syringe IV 10 ml UD PRN Administration SALINE FLUSH Sodium Chloride 500 ml 01/23/24 12:59 0.9% Normal Saline 500 Ml Iv.Soln. IV BOLUS PRN VASO-VAGAL PROTOCOL Lab / Micro Data 01/25/24 05:45 01/25/24 05:45 Labs: Laboratory Results - last 24 hr 01/25/24 05:45: WBC 14.8 H, RBC 2.65 L, Hgb 7.2 L, Hct 22.2 L, MCV 83.8, MCH 27.2, MCHC 32.4, RDW Std Deviation 40.8, RDW Coeff of Marcella 13.3, Plt Count 262, MPV 9.2, Immature Gran % (Auto) 0.500, Neut % (Auto) 82.0 H, Lymph % (Auto) 7.1 L, [place] % (Auto) 9.7, Eos % (Auto) 0.4, Baso % (Auto) 0.3, Absolute Neuts (auto) 12.2 H, Absolute Lymphs (auto) 1.06, Nucleated RBC % 0, Sodium 134 L, Potassium 4.5, Chloride 105, Carbon Dioxide 23.0, Anion Gap 7, BUN 59 H, Creatinine 6.71 H, Estim Creat Clear Calc 17.17, Est GFR (MDRD) Af Amer 12 L, Est GFR (MDRD) Non-Af 10 L, BUN/Creatinine Ratio 8.8 L, Glucose 83, Calcium 8.7, Iron 13 L, TIBC 232 L, Iron Saturation 5.6 L, Ferritin 63, Folate 6.90 01/25/24 12:55: Blood Type AB POSITIVE, Antibody Screen NEGATIVE, Crossmatch See Detail Assessment and Plan . Assessment and plan: HPI 43 yo obese chronically ill diabetic man admitted 01/23/24 w/ CP and ECG changes c/w myocardial ischemia. Noted elevation of cardiac enzymes as well. 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 Subsequently admitted to ICU. pCXR reveals interstitial edema. BNP around 1000 He also has a h/o advanced renal insufficiency - vascular HD access placed 01/23/24 - HD initiated w/ 1000 mL UF removed TTE performed and reveals WMA w/ preserved LVSF He is currently breathing O2 via HHFNC. He is reasonably comfortable at rest - significant dyspnea when lying flat. 01/25/24 He c/o dyspnea Appears comfortable breathing O2 via HHFNC Poor UOP response to diuretics Scheduled for HD tomorrow PHYSICAL EXAM GEN NAD VS as above HEENT HHFNC NECK obese COR RRR CHEST coarse ABD obese EXT minimal edema SKIN w/d MADAY NF ASSESSMENT 1. Acute respiratory failure requiring high-flow supplemental O2 and NIV support 2. CHF / pulmonary edema - elevated LVEDP 3. Acute DE - s/p PCI/PAXTON LAD 4. ESRD 5. DM / obesity 6. 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
--- NOTE | 2024-01-25 15:05 | EKG12_ITS ---
Test Reason : cp Blood Pressure : / mmHG Vent. Rate : 090 BPM Atrial Rate : 000 BPM P-R Int : 000 ms QRS Dur : 084 ms QT Int : 360 ms P-R-T Axes : 000 027 180 degrees QTc Int : 440 ms Normal sinus rhythm Possible Inferior infarct , age undetermined ST & T wave abnormality, consider lateral ischemia Abnormal ECG When compared with ECG of 25-JAN-2024 05:35, MANUAL COMPARISON REQUIRED, DATA IS UNCONFIRMED Confirmed by MELISSA LACEY, DANIELLE ([id number]), editor farm journal KEYLA MORENO ([id number]) on 01/26/2024 1:43:13 PM Referred By: Jemal Confirmed By:DANIELLE TORRES MD
[2024-01-25] MEDS: Morphine 2 MG/ML Syringe IV ×2 (15:28→19:38)
--- NOTE | 2024-01-25 16:28 | NURSING ---
Dexcom reading blood sugar 142. 1.3 units insulin delivered via insulin pump
[2024-01-25] MEDS: Ondansetron 4 MG/2 ML Vial IV (17:32)
--- NOTE | 2024-01-25 20:40 | RAD_ITS ---
INDICATION: fever, sob EXAMINATION/TECHNIQUE: X-RAY - XR Chest 1 View COMPARISON: January 23, 2024 FINDINGS: LINES/DEVICES: Right venous line with tip in the proximal SVC. LUNGS: Focal right basilar infiltrate/effusion. No pneumothorax. MEDIASTINUM AND CARDIOVASCULAR STRUCTURES: Cardiac silhouette not enlarged. Central airways and mediastinal contour are unremarkable. BONES AND SOFT TISSUES: Unremarkable. RAD/Chest 1 View (Portable) IMPRESSION: Focal right basilar infiltrate/effusion. Electronically Signed: Anthony Trevino DO at 22:17 EDT ,
[2024-01-25 20:51] LABS: Mucous, Urine 0 SEEN /hpf (<or=2+); Red Blood Cells-Urine 0 SEEN /hpf (0-5); Squamous Epithelial Cells - UA 0 SEEN /hpf (0-5); White Blood Cells 0 SEEN /hpf (0-5)
--- NOTE | 2024-01-25 20:53 | PCM.RX.CS ---
Consult Antibiotic Management Pharmacy has been consulted to manage selected antibiotic: Vancomycin Type of Intervention Type of Consult: New start Suspected Infection Suspected Infection: Other Labs Labs: Sodium 134 mmol/L (136-145) L 01/25/24 05:45 Potassium 4.5 mmol/L (3.5-5.1) 01/25/24 05:45 Chloride 105 mmol/L (98-107) 01/25/24 05:45 Carbon Dioxide 23.0 mmol/L (21.0-32.0) 01/25/24 05:45 Anion Gap 7 (5-15) 01/25/24 05:45 BUN 59 mg/dL (7-18) H 01/25/24 05:45 Creatinine 6.71 mg/dL (0.70-1.30) H 01/25/24 05:45 Est GFR (MDRD) Af Amer 12 mL/min (>60) L 01/25/24 05:45 Est GFR (MDRD) Non-Af 10 mL/min (>60) L 01/25/24 05:45 BUN/Creatinine Ratio 8.8 RATIO (10-20) L 01/25/24 05:45 Glucose 83 mg/dL (74-106) 01/25/24 05:45 Microbiology Microbiology: Microbiology 01/25/24 17:58 Mucosa - Nasopharyngeal Coronavirus COVID-19 PCR - Final Goal Trough Goal Trough: 15-20 mcg/mL Pharmacy Plan for Drug Dosing Pharmacy Plan for Drug Dosing: NEW START IV VANCOMYCIN Consulting Physician: Dr. Vargas Indication: Empiric Goal Trough: 15-20 SrCr: 6.71 (ESRD) CrCl: 17.17 ml/min Comments: ESRD, received HD today, HD scheduled for tomorrow (01/26/24 Vancomycin Dose: 2000mg x1 dose now then 750mg x1 following HD session tomorrow Pending Level: Random level prior to subsequent HD session Pharmacy Service will continue to monitor and adjust dosing as required. Date/Time Labs Ordered Labs to be done on [date and time ordered]: Random Vancomyin level AM prior to subsequent HD session, tentatively ordered for 01/27/24 @ 0600
--- NOTE | 2024-01-25 20:54 | PCM.RX.CS ---
Consult Antibiotic Management Pharmacy has been consulted to manage selected antibiotic: Other (Zosyn) Type of Intervention Type of Consult: New start Suspected Infection Suspected Infection: Other (Empiric) Labs Labs: Sodium 134 mmol/L (136-145) L 01/25/24 05:45 Potassium 4.5 mmol/L (3.5-5.1) 01/25/24 05:45 Chloride 105 mmol/L (98-107) 01/25/24 05:45 Carbon Dioxide 23.0 mmol/L (21.0-32.0) 01/25/24 05:45 Anion Gap 7 (5-15) 01/25/24 05:45 BUN 59 mg/dL (7-18) H 01/25/24 05:45 Creatinine 6.71 mg/dL (0.70-1.30) H 01/25/24 05:45 Est GFR (MDRD) Af Amer 12 mL/min (>60) L 01/25/24 05:45 Est GFR (MDRD) Non-Af 10 mL/min (>60) L 01/25/24 05:45 BUN/Creatinine Ratio 8.8 RATIO (10-20) L 01/25/24 05:45 Glucose 83 mg/dL (74-106) 01/25/24 05:45 Microbiology Microbiology: Microbiology 01/25/24 17:58 Mucosa - Nasopharyngeal Coronavirus COVID-19 PCR - Final Pharmacy Plan for Drug Dosing Pharmacy Plan for Drug Dosing: NEW START IV ZOSYN Consulting Physician: Dr. Vargas Indication: Empiric SrCr: 6.71 CrCl: 17.17 ml/min (ESRD) Zosyn Dose: 3.375gm Q12H Pharmacy Service will continue to monitor and adjust dosing as required.
[2024-01-25] MEDS: Vancomycin HCl 2,000 MG in 0.9% Normal Saline (500mL Bag) 500 ML 250 MG IV (21:21)
[2024-01-25 21:25] LABS: Color, Urine Straw (Yellow); Glucose, Dipstick Normal (Normal); Ketone-Dipstick Negative (Negative); Leukocyte Esterase-Dipstick Negative /ul (Negative); Nitrite-Dipstick Negative (Negative); Occult Blood-Urine 10 /ul (Negative); Protein-Dipstick 100 mg/dl (Negative); Urine Bilirubin Dipstick Negative (Negative); Urine Clarity Clear (Clear); Urine Urobilinogen Normal (Normal)
[2024-01-25] MEDS: Atorvastatin Calcium 20 MG Tablet PO (21:25)
[2024-01-25 21:31] LABS: Bacteria 1+ /hpf (None Seen)
--- NOTE | 2024-01-25 21:52 | NURSING ---
pt pump dexcom bs 131 no insulin given
[2024-01-25] MEDS: Piperacil/Tazobactam 3.375 GM in 0.9% Normal Saline (50mL MB+) 50 ML IV (23:39)
[2024-01-26] VITALS (48 sets, daily range): BP systolic 100–244; BP diastolic 47–86; PULSE 82–112; RESP 11–22; TEMP 36.5–38.1; O2SAT 86–100; BMI 29.8; BMI 29.0
[2024-01-26] MEDS: Ondansetron 4 MG/2 ML Vial IV (03:58)
[2024-01-26 04:00] LABS: Absolute Lymphocyte Count 0.68 X10^3/uL (0.83-4.51); Absolute Neutrophil Count 14.8 X10^3/uL (2.0-7.7); Basophil% 0.6 % (0-1); Eosinophil# 0.08 X10^3/uL; Eosinophils% 0.5 % (0-5); Hematocrit 23.1 % (40-54); Hemoglobin 7.4 g/dL (13.0-16.5); Lymphocyte # 0.68 X10^3/ul (0.83-4.51); Lymphocyte % 4.1 % (19-41); Mean Corpuscular Volume 84.3 fL (80-94); Mean Platelet Vol. 9.7 fl (6.2-12.0); Monocyte# 0.97 X10^3/uL; Monocyte% 5.8 % (0-10); NRBC Flagged by Analyzer 0 % (0-5); Neutrophil # 14.77 X10^3/uL (2.7-7.7); Neutrophil % 88.2 % (47-70); Platelet Count 223 K/mm3 (150-450); RBC Distribution Width CV 13.2 % (11.6-14.6); RBC Distribution Width SD 40.6 fl (35.1-43.9); Red Blood Count 2.74 M/mm3 (4.6-6.2); White Blood Count 16.7 K/mm3 (4.4-11.0)
[2024-01-26 04:09] LABS: Bedside Glucose 312 mg/dL (74-106)
[2024-01-26] MEDS: Insulin Lispro 100 UNIT/ML INSULN.PEN SC ×3 (04:13→11:15)
[2024-01-26 04:30] LABS: Anion Gap 13 (5-15); BUN 67 mg/dL (7-18); BUN/Creat Ratio 8.6 RATIO (10-20); Calcium,Total 8.2 mg/dL (8.5-10.1); Chloride 99 mmol/L (98-107); Creatinine, Serum 7.78 mg/dL (0.70-1.30); EST Glomerular Filtration Rate 8 mL/min (>60); Est Glom Filt Rate - Afr Amer 10 mL/min (>60); Estimated Creatinine Clearance 14.81 ml/min; Glucose 319 mg/dL (74-106); Potassium 4.6 mmol/L (3.5-5.1); Sodium Level 130 mmol/L (136-145)
[2024-01-26 07:49] LABS: Bedside Glucose 389 mg/dL (74-106)
[2024-01-26] MEDS: Insulin Glargine-YFGN 100 UNIT/ML Pen 10 UNIT SC (09:15)
--- NOTE | 2024-01-26 10:00 | EKG12_ITS ---
Test Reason : Post-PCI Blood Pressure : / mmHG Vent. Rate : 092 BPM Atrial Rate : 092 BPM P-R Int : 144 ms QRS Dur : 084 ms QT Int : 374 ms P-R-T Axes : 038 026 103 degrees QTc Int : 462 ms Normal sinus rhythm Nonspecific ST and T wave abnormality Prolonged QT Abnormal ECG When compared with ECG of 25-JAN-2024 05:35, MANUAL COMPARISON REQUIRED, DATA IS UNCONFIRMED Confirmed by MELISSA LACEY, DANIELLE ([id number]), news copy editor KEYLA MORENO ([id number]) on 01/26/2024 1:43:35 PM Referred By: Nahed Confirmed By:DANIELLE TORRES MD
--- NOTE | 2024-01-26 10:16 | PN_ITS ---
Subjective Subjective Patient seen and examined. He had no active complaints. He was undergoing dialysis. He did have a fever overnight, but hasnt had so again. He denied any fever, chills, cough, chest pain or any other symptoms. Review of systems is otherwise negative. His Hb is 7.4 today. Of note, he was started on IV vancomycin and Zosyn overnight. Reason for this is unclear but I suspect it is because he spiked a fever. Objective Data Objective Data Vital Signs: Vital Signs Temp Pulse Resp BP Pulse Ox O2 Del Method O2 Flow Rate 98.6 F 97 19 H 146/80 H 95 Airvo 60 01/26/24 10:00 01/26/24 10:00 01/26/24 10:00 01/26/24 10:01/26/24 10:01/26/24 10:00 01/26/24 08:00 FiO2 70 01/26/24 08:00 Oxygen Flow Rate (L/min) 60 Oxygen Delivery Method Airvo Weight: 213 lb 13.574 oz Body Mass Index (BMI) 29.8 Intake & Output: Intake and Output for Last 24 Hours 01/24/24 01/25/24 01/26/24 23:59 23:59 23:59 Intake Total 790 / 1000 1930 / 1930 50 / 50 Output Total 600 / 600 825 / 825 Balance 190 / 400 1105 / 1105 50 / 50 Lab / Micro Data 01/26/24 03:50 01/26/24 03:50 Labs: Laboratory Results - last 24 hr 01/25/24 12:55: Blood Type AB POSITIVE, Antibody Screen NEGATIVE, Crossmatch See Detail 01/25/24 20:37: Urine Color Straw, Urine Clarity Clear, Urine pH 6.0, Ur Specific Gail 1.020, Urine Protein 100 H, Urine Glucose (UA) Normal, Urine Ketones Negative, Urine Occult Blood 10 H, Urine Nitrite Negative, Urine Bilirubin Negative, Urine Urobilinogen Normal, Ur Leukocyte Esterase Negative, Urine RBC 0 SEEN, Urine WBC 0 SEEN, Ur Squamous Epith Cells 0 SEEN, Urine Bacteria 1+, Urine Mucus 0 SEEN 01/26/24 03:46: POC Glucose 312 H 01/26/24 03:50: WBC 16.7 H, RBC 2.74 L, Hgb 7.4 L, Hct 23.1 L, MCV 84.3, MCH 27.0, MCHC 32.0, RDW Std Deviation 40.6, RDW Coeff of Marcella 13.2, Plt Count 223, MPV 9.7, Immature Gran % (Auto) 0.800, Neut % (Auto) 88.2 H, Lymph % (Auto) 4.1 L, [place] % (Auto) 5.8, Eos % (Auto) 0.5, Baso % (Auto) 0.6, Absolute Neuts (auto) 14.8 H, Absolute Lymphs (auto) 0.68 L, Nucleated RBC % 0, Sodium 130 L, Potassium 4.6, Chloride 99, Carbon Dioxide 19.0 L, Anion Gap 13, BUN 67 H, C reatinine 7.78 H*, Estim Creat Clear Calc 14.81, Est GFR (MDRD) Af Amer 10 L, E st GFR (MDRD) Non-Af 8 L, BUN/Creatinine Ratio 8.6 L, Glucose 319 H, Calcium 8.2 L 01/26/24 07:32: POC Glucose 389 H Micro: Microbiology 01/25/24 17:58 Mucosa - Nasopharyngeal Respiratory Panel (PCR) - Final 01/25/24 17:58 Mucosa - Nasopharyngeal Coronavirus COVID-19 PCR - Final Radiography Diagnostic Testing: Radiology Impression Chest X-Ray 01/25/24 20:40 IMPRESSION: Focal right basilar infiltrate/effusion. Electronically Signed: Anthony Trevino DO at 22:17 EDT Reading Location ID and State: [address] [place] [address] Tel [phone], Service support , Physical Exam Const alert, oriented x3 and no apparent distress General Appearance: cooperative HEENT normocephalic, head/scalp atraumatic and moist oral mucous membranes Eyes PERRL and EOMs intact bilaterally Neck no lymphadenopathy, supple and no JVD Lymph Lymphatic: no lymphadenopathy noted Resp normal respiratory effort, normal air movement and clear to auscultation bilaterally Cardio regular rate, regular rhythm, S1 normal heart sound, S2 normal heart sound and no murmurs GI normal to inspection, nondistended, normoactive bowel sounds, soft to palpation, non-tender and non-distended Extremity normal capillary refill, no clubbing, cyanosis or edema and no calf tenderness Extremity Narrative: dialysis catheter in chest, undergoing dialysis General Extremity: no tenderness to palpation of joints or extremities Skin General Skin Exam: no breakdown Neuro no focal motor deficits, no sensory deficits noted and deep tendon reflexes 2+ bilaterally Motor Exam: strength 5/5 throughout and general weakness Psych thought process normal and cooperative Appearance: appropriate Assessment & Plan Assessment/Plan (1) Acute non-ST elevation myocardial infarction (NSTEMI): (2) CKD (chronic kidney disease), stage V: (3) NSTEMI, initial episode of care: (4) Acute kidney injury: (5) ESRF (end stage renal failure): PLAN: Plan #DKA in a known type 1 diabetic * resolved. * on insulin pump. However, blood sugars were elevated this morning at 389. Apparently his battery in the insulin pump has , and is is going to bring in the commercial real estate lender for his insulin pump later today * give SQ lantus [address] on high dose insulin sliding scale * resume insulin pump when batteries are replaced. * #Nonstemi * s/p cardiac cath with PCI ot LAD which had 70% blockage * 2D echo shoed EF of 60% with no regional wall motion abnormalities * on aspirin, plavix, high intensity sta tin and metoprolol. NOt on LENI inhibitor or ARB due to ESRD * cardiology on board #Fever * Patient spiked a fever yesterday to 102 Fahrenheit. Etiology is unclear. * wbc also elevated at 16.7. * urinalysis did show 1+ bacteria * Patient was started on IV vancomycin and Zosyn overnight, protocol to this fever. * Blood cultures ordered. WIll also get urine cultures * #ESRD * Currently on dialysis via temporary catheter in the chest. * Temporary catheter was placed on 1025. Nephrology on board. Having dialysis today. * * #Acute on chronic anemia * Hemoglobin was 10 on admission and is 1.4 yesterday. Was 7.2 yesterday. He was transfused a unit of proper blood cells yesterday. * Stool for occult blood is pending. Iron profile shows iron deficiency anemia. * In light of him being on aspirin and Plavix I think it is prudent that we rule out any occult bleed. Will consult GI for possible EGD and colonoscopy. * IV pantoprazole bid * #Benign essential hypertension: on amloidpine and metoprolol. IV hydralazine prn #Hyperlipidemia: on statin. DVT prophylaxis: SCDs Charges/Coding Visit Charges Inpatient E&M: 29776 Subs Hosp L3
[2024-01-26 10:36] LABS: Vitamin B12 794 pg/mL (211-911)
--- NOTE | 2024-01-26 11:07 | PCM.PN.TICU ---
Objective Data Objective Data Vital Signs: Vital Signs Last response Temperature 36.7 C 01/26/24 10:18 Temperature Source Oral 01/26/24 10:18 Pulse Rate 95 01/26/24 11:00 Pulse Strength Normal (2+) 01/25/24 21:51 Respiratory Rate 12 01/26/24 11:00 Respiratory Effort Normal, Non-Labored 01/26/24 08:00 Respiratory Depth Normal 01/26/24 07:57 Respiratory Pattern Normal 01/26/24 07:57 Blood Pressure 146/75 H 01/26/24 11:00 Blood Pressure Mean 98 01/26/24 11:00 Blood Pressure Source Monitor 01/26/24 11:00 Blood Pressure Position Semi-Fowlers 01/26/24 11:00 Blood Pressure Location Right Arm 01/26/24 11:00 Pulse Ox 100 01/26/24 11:00 Oxygen Delivery Method Airvo 01/26/24 11:00 Oxygen Flow Rate (L/min) 60 01/26/24 08:00 Fraction of Inspired Oxygen (FIO2) 70 01/26/24 08:00 I&O: I&O Last 24 Hours 01/25/24 01/25/24 01/26/24 11:59 23:59 11:59 Intake Total 1080 / 1930 850 / 1930 550 / 550 Output Total 125 / 825 700 / 825 Balance 955 / 1105 150 / 1105 550 / 550 I&O: Total Stay 01/22/24 20:08 thru 01/26/24 10:18 Intake Total 5500.07 Output Total 3775 Balance 1725.07 Current Meds Ordered / Administered: Current meds ordered / Administered Generic Name Dose Route Start Last Admin Trade Name Freq PRN Reason Stop Dose Admin Acetaminophen 650 mg 01/23/24 15:23 01/25/24 20:08 Acetaminophen 325 Mg Tablet PO 650 mg Q4H PRN PRN Administration Pain 1-10 or Fever Amlodipine Besylate 10 mg 01/23/24 10:00 01/25/24 08:26 Amlodipine 10 Mg Tablet PO 10 mg DAILY CHILO Administration Protocol Aspirin 81 mg 01/24/24 08:00 01/25/24 08:26 Aspirin E.C. 81 Mg Tablet PO 81 mg BREAKFAST CHILO Administration Atorvastatin Calcium 20 mg 01/23/24 22:00 01/25/24 21:25 Atorvastatin Calcium 20 Mg Tablet PO 20 mg QHS CHILO Administration Atropine Sulfate 0.5 mg 01/23/24 12:59 Atropine Sulfate 1 Mg/10 Ml Syringe IV UD PRN HR <50 bpm Clopidogrel Bisulfate 75 mg 01/23/24 00:36 01/25/24 08:26 Clopidogrel Bisulfate 75 Mg Tablet PO 75 mg DAILY CHILO Administration Glucagon 1 mg 01/23/24 07:39 Glucagon 1 Mg/Ml Syringe IM X1 PRN Hypoglycemia Protocol Hemodialysis Solution 6 bag 01/26/24 08:00 Pureflow B 2k Dialysis Soln 1 Bag PF 01/26/24 19:58 UD CHILO Protocol Heparin Sodium (Porcine) 1,300 units 01/23/24 13:54 01/23/24 14:47 Heparin 10,000 Units/10 Ml Vial IV 1,300 units PRN PRN Administration Dialysis Line Heparin Sodium (Porcine) 1,000 - 3,000 units 01/26/24 07:57 Heparin 10,000 Units/10 Ml Vial IV 01/26/24 19:57 X1 PRN HD catheter closing Hydralazine HCl 10 mg 01/23/24 01:21 Hydralazine 20 Mg/Ml Vial IV Q6H PRN PRN SBP GREATER THAN 160 Protocol Hydroxyzine HCl 25 mg 01/23/24 01:21 Hydroxyzine 50 Mg/Ml Vial IM Q6H PRN PRN ANXIETY Dextrose 250 mls @ 999 mls/hr 01/23/24 01:21 Dextrose 10%-Water IV .Q16M PRN Hypoglycemic Protocol Protocol Piperacillin Sod/Tazobactam 50 mls @ 12.5 mls/hr 01/25/24 21:00 01/26/24 03:42 Sod 3.375 gm/ Sodium Chloride IV Infused Q12 CHILO Infusion Vancomycin HCl 750 mg/ Sodium 265 mls @ 250 mls/hr 01/26/24 16:00 Chloride IV 01/26/24 17:03 X1 ONE Vancomycin IV-PHARMACY TO DOSE 500 mls @ 250 mls/hr 01/25/24 21:15 1 each/ Sodium Chloride IV PRN PRN Rx to Dose Protocol Pantoprazole Sodium 40 mg/ 110 mls @ 330 mls/hr 01/26/24 22:00 Sodium Chloride IV Q12 CHILO Insulin Human Lispro 0 unit 01/26/24 09:11 01/26/24 10:11 Insulin Lispro 100 Unit/Ml Insuln.Pen SC 14 units ACHS CHILO Administration Protocol Metoprolol Succinate 25 mg 01/23/24 10:00 01/25/24 08:25 Metoprolol(Xl)Succ 25 Mg Tablet PO 25 mg DAILY [facility] Administration Protocol Morphine Sulfate 2 mg 01/23/24 01:21 01/25/24 19:38 Morphine 2 Mg/Ml Syringe IV 2 mg Q4H PRN PRN Administration Pain Score 6-10 Ondansetron HCl 4 mg 01/23/24 01:21 01/26/24 03:58 Ondansetron 4 Mg/2 Ml Vial IV 4 mg Q6H PRN PRN Administration NAUSEA/VOMITING Oxycodone HCl 5 mg 01/23/24 15:23 01/23/24 21:15 Oxycodone 5 Mg Tablet PO 5 mg Q4H PRN PRN Administration Pain Score 6-10 Pharmacy Profile Note 1 each 01/25/24 20:18 Pharmacy Consult NOTE PRN PRN NOT SPECIFIED Promethazine HCl 25 mg 01/23/24 01:21 Promethazine 25 Mg/Ml Syringe IM Q4H PRN PRN BREAKTHROUGH NAUSEA Sodium Chloride 10 - 40 ml 01/23/24 01:29 01/25/24 21:22 0.9% Saline Lock 10 Ml Syringe IV 40 ml UD PRN Administration SALINE FLUSH Sodium Chloride 500 ml 01/23/24 12:59 0.9% Normal Saline 500 Ml Iv.Soln. IV BOLUS PRN VASO-VAGAL PROTOCOL Sodium Chloride 1,000 ml 01/26/24 08:00 0.9% Normal Saline 1,000 Ml Iv.Soln. OPERA.SITE 01/26/24 19:57 X1 CHILO Sodium Chloride 200 ml 01/26/24 07:57 0.9% Normal Saline 1,000 Ml Iv.Soln. IV 01/26/24 19:57 X1 PRN to maintain SBP >90mmHg during Dialysis Vancomycin Protocol 1 lab 01/27/24 04:00 Vancomycin Trough/Random Due MC 01/27/24 08:00 DAILY [facility] Lab / Micro Data 01/26/24 03:50 01/26/24 03:50 Labs: Laboratory Results - last 24 hr 01/25/24 12:55: Blood Type AB POSITIVE, Antibody Screen NEGATIVE, Crossmatch See Detail 01/25/24 20:37: Urine Color Straw, Urine Clarity Clear, Urine pH 6.0, Ur Specific [place] 1.020, Urine Protein 100 H, Urine Glucose (UA) Normal, Urine Ketones Negative, Urine Occult Blood 10 H, Urine Nitrite Negative, Urine Bilirubin Negative, Urine Urobilinogen Normal, Ur Leukocyte Esterase Negative, Urine RBC 0 SEEN, Urine WBC 0 SEEN, Ur Squamous Epith Cells 0 SEEN, Urine Bacteria 1+, Urine Mucus 0 SEEN 01/26/24 03:46: POC Glucose 312 H 01/26/24 03:50: WBC 16.7 H, RBC 2.74 L, Hgb 7.4 L, Hct 23.1 L, MCV 84.3, MCH 27.0, MCHC 32.0, RDW Std Deviation 40.6, RDW Coeff of Marcella 13.2, Plt Count 223, MPV 9.7, Immature Gran % (Auto) 0.800, Neut % (Auto) 88.2 H, Lymph % (Auto) 4.1 L, [place] % (Auto) 5.8, Eos % (Auto) 0.5, Baso % (Auto) 0.6, Absolute Neuts (auto) 14.8 H, Absolute Lymphs (auto) 0.68 L, Nucleated RBC % 0, Sodium 130 L, Potassium 4.6, Chloride 99, Carbon Dioxide 19.0 L, Anion Gap 13, BUN 67 H, Creatinine 7.78 H*, Estim Creat Clear Calc 14.81, Est GFR (MDRD) Af Amer 10 L, Est GFR (MDRD) Non-Af 8 L, BUN/Creatinine Ratio 8.6 L, Glucose 319 H, Calcium 8.2 L 01/26/24 07:32: POC Glucose 389 H 01/26/24 10:00: Vitamin B12 794 Micro: Microbiology 01/25/24 17:58 Mucosa - Nasopharyngeal Respiratory Panel (PCR) - Final 01/25/24 17:58 Mucosa - Nasopharyngeal Coronavirus COVID-19 PCR - Final Imaging Radiology Impression Chest X-Ray 01/25/24 20:40 IMPRESSION: Focal right basilar infiltrate/effusion. Electronically Signed: Anthony Trevino DO at 22:17 EDT Reading Location ID and State: [facility] / [place] Tel [phone], Service support , Assessment and Plan . Assessment and plan: HPI 43 yo obese chronically ill diabetic man admitted 01/23/24 w/ CP and ECG changes c/w myocardial ischemia. Noted elevation of cardiac enzymes as well. 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 Subsequently admitted to ICU. pCXR reveals interstitial edema. BNP around 1000 He also has a h/o advanced renal insufficiency - vascular HD access placed 01/23/24 - HD initiated w/ 1000 mL UF removed TTE performed and reveals WMA w/ preserved LVSF He is currently breathing O2 via HHFNC. He is reasonably comfortable at rest - significant dyspnea when lying flat. 01/26/24 He c/o dyspnea Appears comfortable breathing O2 via HHFNC HD at currently Fever o/n - BCX obtained - now receiving ABX PHYSICAL EXAM GEN NAD VS as above HEENT HHFNC NECK obese COR RRR CHEST coarse ABD obese EXT minimal edema SKIN w/d MADAY NF ASSESSMENT 1. Acute respiratory failure requiring high-flow supplemental O2 and NIV support 2. CHF / pulmonary edema - elevated LVEDP 3. Acute NE - s/p PCI/PAXTON LAD 4. ESRD 5. DM / obesity 6. Anemia 7. Fever TREATMENT PLAN -supplemental O2 -NIV support as needed -HD w/ UF -anti-PLT -sq UFH -sq insulin -I am told he is to receive RBC today w/ HD -f/u BCX Critical Care Time: 50 min The entirety of this encounter was done via Telemedicine
[2024-01-26] MEDS: PureFlow B 2K Dialysis Soln 1 BAG 6 BAG PF (11:17)
[2024-01-26] MEDS: 0.9% Saline Lock 10 ML Syringe IV ×2 (11:17→19:54)
[2024-01-26] MEDS: 0.9% Normal Saline 1,000 ML IV.SOLN. 1000 ML OPERA.SITE (11:17)
[2024-01-26] MEDS: Heparin 10,000 UNITS/10 ML Vial IV (11:18)
[2024-01-26 11:34] LABS: Bedside Glucose 248 mg/dL (74-106)
[2024-01-26] MEDS: Aspirin E.C. 81 MG Tablet PO (12:56)
[2024-01-26] MEDS: amLODIPine 10 MG Tablet PO (12:58)
[2024-01-26] MEDS: Piperacil/Tazobactam 3.375 GM in 0.9% Normal Saline (50mL MB+) 50 ML IV ×2 (12:58→21:28)
[2024-01-26] MEDS: Clopidogrel Bisulfate 75 MG Tablet PO (12:59)
[2024-01-26] MEDS: Metoprolol(XL)Succ 25 MG Tablet PO (13:03)
--- NOTE | 2024-01-26 14:46 | PCM.PN.CARD ---
Subjective Subjective Patient seen and evaluated Objective Data Vital Signs: Vital Signs Temp Pulse Resp BP Pulse Ox O2 Del Method O2 Flow Rate 98.1 F 96 18 147/74 H 95 High Flow 10 01/26/24 12:30 01/26/24 13:03 01/26/24 13:00 01/26/24 13:00 01/26/24 13:30 01/26/24 13:30 01/26/24 13:30 FiO2 40 01/26/24 13:00 Oxygen Flow Rate (L/min) 10 Oxygen Delivery Method High Flow Weight: 207 lb 3.752 oz Body Mass Index (BMI) 29.0 Intake & Output: Intake and Output for Last 24 Hours 01/24/24 01/25/24 01/26/24 23:59 23:59 23:59 Intake Total 790 / 1000 1930 / 1930 1030 / 1030 Output Total 600 / 600 825 / 825 3330 / 3330 Balance 190 / 400 1105 / 1105 -2300 / -2300 Lab / Micro Data 01/26/24 03:50 01/26/24 03:50 Labs: Laboratory Results - last 24 hr 01/25/24 12:55: Blood Type AB POSITIVE, Antibody Screen NEGATIVE, Crossmatch See Detail 01/25/24 20:37: Urine Color Straw, Urine Clarity Clear, Urine pH 6.0, Ur Specific [place] 1.020, Urine Protein 100 H, Urine Glucose (UA) Normal, Urine Ketones Negative, Urine Occult Blood 10 H, Urine Nitrite Negative, Urine Bilirubin Negative, Urine Urobilinogen Normal, Ur Leukocyte Esterase Negative, Urine RBC 0 SEEN, Urine WBC 0 SEEN, Ur Squamous Epith Cells 0 SEEN, Urine Bacteria 1+, Urine Mucus 0 SEEN 01/26/24 03:46: POC Glucose 312 H 01/26/24 03:50: WBC 16.7 H, RBC 2.74 L, Hgb 7.4 L, Hct 23.1 L, MCV 84.3, MCH 27.0, MCHC 32.0, RDW Std Deviation 40.6, RDW Coeff of Marcella 13.2, Plt Count 223, MPV 9.7, Immature Gran % (Auto) 0.800, Neut % (Auto) 88.2 H, Lymph % (Auto) 4.1 L, [place] % (Auto) 5.8, Eos % (Auto) 0.5, Baso % (Auto) 0.6, Absolute Neuts (auto) 14.8 H, Absolute Lymphs (auto) 0.68 L, Nucleated RBC % 0, Sodium 130 L, Potassium 4.6, Chloride 99, Carbon Dioxide 19.0 L, Anion Gap 13, BUN 67 H, Creatinine 7.78 H*, Estim Creat Clear Calc 14.81, Est GFR (MDRD) Af Amer 10 L, Est GFR (MDRD) Non-Af 8 L, BUN/Creatinine Ratio 8.6 L, Glucose 319 H, Calcium 8.2 L 01/26/24 07:32: POC Glucose 389 H 01/26/24 10:00: Vitamin B12 794 01/26/24 11:13: POC Glucose 248 H Micro: Microbiology 01/25/24 17:58 Mucosa - Nasopharyngeal Respiratory Panel (PCR) - Final 01/25/24 17:58 Mucosa - Nasopharyngeal Coronavirus COVID-19 PCR - Final Cardiology Labs/Tests 01/25/24 20:37: Urine Color Straw, Urine Clarity Clear, Urine pH 6.0, Ur Specific [place] 1.020, Urine Protein 100 H, Urine Glucose (UA) Normal, Urine Ketones Negative, Urine Occult Blood 10 H, Urine Nitrite Negative, Urine Bilirubin Negative, Urine Urobilinogen Normal, Ur Leukocyte Esterase Negative, Urine RBC 0 SEEN, Urine WBC 0 SEEN 01/26/24 03:50: WBC 16.7 H, RBC 2.74 L, Hgb 7.4 L, Hct 23.1 L, MCV 84.3, MCH 27.0, MCHC 32.0, Plt Count 223, MPV 9.7, Immature Gran % (Auto) 0.800, Neut % (Auto) 88.2 H, Lymph % (Auto) 4.1 L, [place] % (Auto) 5.8, Eos % (Auto) 0.5, Baso % (Auto) 0.6, Absolute Neuts (auto) 14.8 H, Nucleated RBC % 0, Sodium 130 L, Potassium 4.6, Chloride 99, Carbon Dioxide 19.0 L, Anion Gap 13, BUN 67 H, Creatinine 7.78 H*, Est GFR (MDRD) Af Amer 10 L, Est GFR (MDRD) Non-Af 8 L, BUN/Creatinine Ratio 8.6 L, Glucose 319 H, Calcium 8.2 L Rhythm: EKG: ECHO: Stress Test: Cardiac Cath: PCI: CT Surgery: Holter monitor: EPS: PPM: CXR: Chest CT Scan: Radiography Diagnostic Testing: Radiology Impression Chest X-Ray 01/25/24 20:40 IMPRESSION: Focal right basilar infiltrate/effusion. Electronically Signed: Anthony Trevino DO at 22:17 EDT Reading Location ID and State: [facility] / [place] Tel [phone], Service support , Assessment & Plan Assessment/Plan (1) History of coronary artery stent placement: PLAN: Patient underwent cardiac catheterization with demonstrated high-grade proximal to mid left anterior descending artery for which she was stented. At this time he appears to be stable from the cardiovascular standpoint. He can be followed up as an outpatient. He will continue with his current therapy with dialysis. I will sign off at this stage. Please reconsult as necessary.
[2024-01-26] MEDS: Vancomycin HCl 750 MG in 0.9% Normal Saline (250mL Bag) 250 ML 250 MG IV (15:59)
--- NOTE | 2024-01-26 16:29 | NURSING ---
bs 217, 2.75 units of insulin given per pt dexcom
--- NOTE | 2024-01-26 17:34 | CPS ---
changed water bag
--- NOTE | 2024-01-26 17:57 | PN.RENAL_ITS ---
Subjective Subjective Seen on dialysis this morning. He is still on Airvo. Objective Data Objective Data Vital Signs: Vital Signs Temp Pulse Resp BP Pulse Ox O2 Del Method O2 Flow Rate 98.1 F 98 18 120/62 97 Airvo 50 01/26/24 12:30 01/26/24 17:34 01/26/24 17:34 01/26/24 16:00 01/26/24 17:34 01/26/24 16:00 01/26/24 16:00 FiO2 50 01/26/24 17:34 Oxygen Flow Rate (L/min) 50 Oxygen Delivery Method Airvo Weight: 94 kg Body Mass Index (BMI) 29.0 Intake & Output: Intake and Output for Last 24 Hours 01/24/24 01/25/24 01/26/24 23:59 23:59 23:59 Intake Total 790 / 1000 1930 / 1930 1585 / 1585 Output Total 600 / 600 825 / 825 4130 / 4130 Balance 190 / 400 1105 / 1105 -2545 / -2545 Lab / Micro Data 01/26/24 03:50 01/26/24 03:50 Labs: Laboratory Results - last 24 hr 01/25/24 12:55: Blood Type AB POSITIVE, Antibody Screen NEGATIVE, Crossmatch See Detail 01/25/24 20:37: Urine Color Straw, Urine Clarity Clear, Urine pH 6.0, Ur Specific [place] 1.020, Urine Protein 100 H, Urine Glucose (UA) Normal, Urine Ketones Negative, Urine Occult Blood 10 H, Urine Nitrite Negative, Urine Bilirubin Negative, Urine Urobilinogen Normal, Ur Leukocyte Esterase Negative, Urine RBC 0 SEEN, Urine WBC 0 SEEN, Ur Squamous Epith Cells 0 SEEN, Urine Bacteria 1+, Urine Mucus 0 SEEN 01/26/24 03:46: POC Glucose 312 H 01/26/24 03:50: WBC 16.7 H, RBC 2.74 L, Hgb 7.4 L, Hct 23.1 L, MCV 84.3, MCH 27.0, MCHC 32.0, RDW Std Deviation 40.6, RDW Coeff of Marcella 13.2, Plt Count 223, MPV 9.7, Immature Gran % (Auto) 0.800, Neut % (Auto) 88.2 H, Lymph % (Auto) 4.1 L, Person % (Auto) 5.8, Eos % (Auto) 0.5, Baso % (Auto) 0.6, Absolute Neuts (auto) 14.8 H, Absolute Lymphs (auto) 0.68 L, Nucleated RBC % 0, Sodium 130 L, Potassium 4.6, Chloride 99, Carbon Dioxide 19.0 L, Anion Gap 13, BUN 67 H, C reatinine 7.78 H*, Estim Creat Clear Calc 14.81, Est GFR (MDRD) Af Amer 10 L, E st GFR (MDRD) Non-Af 8 L, BUN/Creatinine Ratio 8.6 L, Glucose 319 H, Calcium 8.2 L 01/26/24 07:32: POC Glucose 389 H 01/26/24 10:00: Vitamin B12 794 01/26/24 11:13: POC Glucose 248 H Micro: Microbiology 01/25/24 17:58 Mucosa - Nasopharyngeal Respiratory Panel (PCR) - Final 01/25/24 17:58 Mucosa - Nasopharyngeal Coronavirus COVID-19 PCR - Final Radiography Diagnostic Testing: Radiology Impression Chest X-Ray 01/25/24 20:40 IMPRESSION: Focal right basilar infiltrate/effusion. Electronically Signed: Anthony Trevino DO at 22:17 EDT Reading Location ID and State: [facility] / [place] Tel [phone], Service support , Physical Exam Narrative Alert and orient x 3, no apparent distress S1, S2, RRR Lungs clear anteriorly and posteriorly. No wheezes, rhonchi or rales Abdomen soft, nontender No edema Left forearm AV fistula with positive thrill and bruit. Fistula is small. Assessment & Plan Assessment/Plan (1) CKD (chronic kidney disease), stage V: (2) Elevated troponin: (3) Hypertension: QUALIFIERS: Hypertension type: unspecified Qualified Code(s): I10 - Essential (primary) hypertension PLAN: Plan Impression/Plan: The patient is a 43-year-old male with past history of type 1 diabetes mellitus, hypertension, Charcot's foot, hyperlipidemia and chronic kidney disease stage G4. The patient is followed in nephrology office by co. Patient has been prepared for ESRD and had AV fistula placed in July 2023. Patient presented to hospital on 01/23/2024 with chest pain. The patient was diagnosed with NSTEMI. He underwent LHC on 01/23/2024 but did not require intervention. Nephrology is following for ANN on CKD. Acute kidney injury on chronic kidney disease stage G5. Patient likely now has ESRD. Baseline serum creatinines been around 5.00 mg/dL prior to this admission. He is status post AV fistula placement in July 2023. Serum creatinine has increased to 6.20 mg/dL on 01/22/2024. Started on dialysis, seen on dialysis today. Left arm AV fistula radiocephalic is fairly small. Currently has a temporary right IJ nontunneled dialysis catheter. Discussed orders with staff. Acute hypoxic respiratory failure. Patient still requiring high flow oxygen. We will plan for additional fluid removal end of dialysis treatment today. This will be with isolated ultrafiltration. Most likely will need a tunneled dialysis catheter. Still spiking fevers. Sepsis workup ordered as per primary. Once infection clears or improves, will consult vascular surgery for a tunneled dialysis catheter placement. He may also need an intervention for his left arm radiocephalic fistula.
--- NOTE | 2024-01-26 19:21 | CON.PCM.GI_ITS ---
HPI Consult Data Date of Consult: 01/26/24 HPI Narrative Reason for Consultation: Anemia HPI Narrative: LAURIE GONZALES, is a 43-year-old patient with history of diabetes mellitus, hypertension and hyperlipidemia was admitted with fatigue and weakness and was discovered to have hyperglycemia and DKA. He also has a history of end-stage kidney disease secondary to uncontrolled diabetes mellitus. On presentation he also had symptoms of chest pain described as heaviness and pressure in the retrosternal region subsequent evaluation with a series of high sensitive troponins revealed evidence of non-ST elevation CA. He was started on treatment with heparin , Plavix , aspirin with statin and echocardiogram showed LV function preserved mild apical hypokinesia. Based on the clinical presentation he was taken to the [facility] Supervisor for further evaluation. PCI cardiac catheterization report: 1. Moderate sedation 2. Selective left coronary angiography 3. Selective right coronary angiography 4. Measurement of LVEDP 4. Measurement of LVEDP and a pullback pressure 5. Successful PCI of the culprit lesion which is diffuse mid LAD 70% stenosis With initial CHIDI III flow, with multiple balloon inflation/escalating the balloon With 2.25 followed by 2.5 x 20 mm,Emerge MR balloon, followed by placement of drug-eluting stent 3 x 38 mm [place] PAXTON Achievement of excellent result with reduction of stenosis to 0% and maintenance of CHIDI-3 flow postprocedure. I was asked to see him because he has been decreasing his hemoglobin. He has never undergone endoscopic evaluation in the past. [facility] Medical History (Updated 01/25/24 @ 13:[address] Rodolfo Dockery MD) Acute kidney injury Hypertension Pre-op testing ESRF (end stage renal failure) Stage 4 chronic kidney disease Diabetes mellitus type 1 Insulin pump titration Presence of insulin pump CKD (chronic kidney disease) Obesity Abscess Charcot foot due to diabetes mellitus Type 1 diabetes mellitus Home Medications ?Medication ?Instructions ?Recorded ?Last Taken ?Type blood sugar diagnostic (FreeStyle #100 ea 10/08/21 Unknown Rx Lite Strips) blood-glucose meter,continuous #1 ea 10/08/21 Unknown Rx (Dexcom G6 Instructional Interventionist) lancing device with lancets kit #100 ea 11/26/21 Unknown Rx ([employer] Delica Plus Lancing Device kit) pen needle, diabetic 32 gauge x #150 ea 02/26/22 Unknown Rx (BD Ultra-Fine Carol Pen Needle) alcohol swabs (BD Alcohol Swabs) 1 pad topical .4 times daily #200 05/20/22 Unknown Rx ea furosemide 40 mg tablet 80 mg PO BID 07/30/23 08/01/23 History insulin aspart U-100 100 unit/mL 80 unit (0.8 mL) continuous 08/18/23 Unknown Rx subcutaneous solution (Novolog subcutaneous infusion .continuous U-100 Insulin aspart) #72 mL rosuvastatin 10 mg tablet 10 mg PO DAILY #90 tabs 11/07/23 Unknown Rx amlodipine 10 mg tablet 10 mg PO DAILY #90 tabs 11/17/23 Unknown Rx metoprolol succinate 25 mg 25 mg PO DAILY #30 tabs 11/27/23 Unknown Rx tablet,extended release 24 hr insulin pump cart,automated,BT #30 ea 01/06/24 Unknown Rx blood-glucose sensor (Dexcom G6 #9 ea 01/16/24 Unknown Rx Sensor device) blood-glucose transmitter (Dexcom #1 ea 01/16/24 Unknown Rx G6 Transmitter device) Allergy/AdvReac Type Severity Reaction Status Date / Time No Known Allergies Allergy Verified 01/22/24 20:12 Family History Mother Diabetes Thyroid disorder Grandmother Diabetes Grandfather Diabetes Surgical History History of surgery on lower extremity Social History Smoking Status: Never smoker alcohol intake: never substance use type: does not use ROS ROS Narrative As in HPI Physical Exam Narrative Alert and orient x 3, no apparent distress S1, S2, RRR Lungs clear anteriorly and posteriorly. No wheezes, rhonchi or rales Abdomen soft, nontender No edema Left forearm AV fistula with positive thrill and bruit. Fistula is small. Lab / Micro Data 01/26/24 03:50 01/26/24 03:50 Labs: Laboratory Results - last 24 hr 01/25/24 12:55: Blood Type AB POSITIVE, Antibody Screen NEGATIVE, Crossmatch See Detail 01/25/24 20:37: Urine Color Straw, Urine Clarity Clear, Urine pH 6.0, Ur Specific [place] 1.020, Urine Protein 100 H, Urine Glucose (UA) Normal, Urine Ketones Negative, Urine Occult Blood 10 H, Urine Nitrite Negative, Urine Bilirubin Negative, Urine Urobilinogen Normal, Ur Leukocyte Esterase Negative, Urine RBC 0 SEEN, Urine WBC 0 SEEN, Ur Squamous Epith Cells 0 SEEN, Urine Bacteria 1+, Urine Mucus 0 SEEN 01/26/24 03:46: POC Glucose 312 H 01/26/24 03:50: WBC 16.7 H, RBC 2.74 L, Hgb 7.4 L, Hct 23.1 L, MCV 84.3, MCH 27.0, MCHC 32.0, RDW Std Deviation 40.6, RDW Coeff of Marcella 13.2, Plt Count 223, MPV 9.7, Immature Gran % (Auto) 0.800, Neut % (Auto) 88.2 H, Lymph % (Auto) 4.1 L, [place] % (Auto) 5.8, Eos % (Auto) 0.5, Baso % (Auto) 0.6, Absolute Neuts (auto) 14.8 H, Absolute Lymphs (auto) 0.68 L, Nucleated RBC % 0, Sodium 130 L, Potassium 4.6, Chloride 99, Carbon Dioxide 19.0 L, Anion Gap 13, BUN 67 H, C reatinine 7.78 H*, Estim Creat Clear Calc 14.81, Est GFR (MDRD) Af Amer 10 L, E st GFR (MDRD) Non-Af 8 L, BUN/Creatinine Ratio 8.6 L, Glucose 319 H, Calcium 8.2 L 01/26/24 07:32: POC Glucose 389 H 01/26/24 10:00: Vitamin B12 794 01/26/24 11:13: POC Glucose 248 H Micro: Microbiology 01/25/24 17:58 Mucosa - Nasopharyngeal Respiratory Panel (PCR) - Final 01/25/24 17:58 Mucosa - Nasopharyngeal Coronavirus COVID-19 PCR - Final Imaging Radiology Impression Chest X-Ray 01/25/24 20:40 IMPRESSION: Focal right basilar infiltrate/effusion. Electronically Signed: Anthony Trevino DO at 22:17 EDT , Assessment & Plan Assessment/Plan (1) Diabetic ketoacidosis: QUALIFIERS: Diabetes mellitus type: type 1 Diabetes mellitus complication detail: without coma Qualified Code(s): E10.10 - Type 1 diabetes mellitus with ketoacidosis without coma (2) Acute kidney injury superimposed on chronic kidney disease: (3) DM type 1 (diabetes mellitus, type 1): QUALIFIERS: Diabetes mellitus complication status: with unspecified complications Qualified Code(s): E10.8 - Type 1 diabetes mellitus with unspecified complications (4) Congestive heart failure of unknown etiology: PLAN: Plan 43-year-old gentleman with diabetes mellitus complicated by DKA, end-stage renal disease and recent non-ST segment elevation CA status post PTCA with stenting. His hemoglobin was 10.2 and is decreased down to 7.2. There is a higher incidence of upper GI bleed in the setting of recent stenting then lower GI bleed. He does have a history of anemia chronic disease secondary to CKD in the setting of iron deficiency anemia. He should undergo an upper and lower endoscopy. However given that he possibly cannot handle the volume from a prep he should undergo an upper endoscopy first. He still remains on aspirin, Plavix, statin. N.p.o. past midnight for upper endoscopy. Charges/Coding Visit Charges Inpatient E&M: 85653 Init Hosp L3
[2024-01-26] MEDS: Atorvastatin Calcium 20 MG Tablet PO (19:54)
[2024-01-26] MEDS: Pantoprazole Sodium 40 MG in 0.9% Normal Saline (100mL MB+) 100 ML 330 MG IV (19:54)
[2024-01-26] MEDS: Heparin Injection (Vial) 5,000 UNIT/ML VIAL 5000 UNIT SC (19:54)
[2024-01-26] MEDS: Morphine 2 MG/ML Syringe IV (19:55)
[2024-01-27] VITALS (43 sets, daily range): BP systolic 56–161; BP diastolic 51–106; PULSE 71–99; RESP 12–24; TEMP 36.4–37.3; O2SAT 81–100; BMI 29.7; BMI 28.8
[2024-01-27 05:36] LABS: Absolute Lymphocyte Count 1.03 X10^3/uL (0.83-4.51); Absolute Neutrophil Count 9.9 X10^3/uL (2.0-7.7); Basophil# 0.08 X10^3/uL; Basophil% 0.6 % (0-1); Eosinophil# 0.34 X10^3/uL; Eosinophils% 2.8 % (0-5); Hematocrit 24.1 % (40-54); Hemoglobin 7.7 g/dL (13.0-16.5); Lymphocyte # 1.03 X10^3/ul (0.83-4.51); Lymphocyte % 8.3 % (19-41); Mean Corpuscular Hgb 26.7 pg (27.0-32.0); Mean Corpuscular Volume 83.7 fL (80-94); Mean Platelet Vol. 9.7 fl (6.2-12.0); Monocyte% 8.1 % (0-10); NRBC Flagged by Analyzer 0 % (0-5); Neutrophil # 9.85 X10^3/uL (2.7-7.7); Neutrophil % 79.9 % (47-70); Platelet Count 255 K/mm3 (150-450); RBC Distribution Width CV 13.5 % (11.6-14.6); RBC Distribution Width SD 40.6 fl (35.1-43.9); Red Blood Count 2.88 M/mm3 (4.6-6.2); White Blood Count 12.3 K/mm3 (4.4-11.0)
[2024-01-27 05:51] LABS: Vancomycin, Random Level 24.6 ug/mL (0.0-15.0)
[2024-01-27] MEDS: 0.9% Saline Lock 10 ML Syringe IV ×3 (06:09→21:36)
[2024-01-27] MEDS: Morphine 2 MG/ML Syringe IV ×2 (06:09→18:10)
[2024-01-27 06:12] LABS: Anion Gap 7 (5-15); BUN 53 mg/dL (7-18); Calcium,Total 8.7 mg/dL (8.5-10.1); Chloride 104 mmol/L (98-107); Creatinine, Serum 5.92 mg/dL (0.70-1.30); EST Glomerular Filtration Rate 11 mL/min (>60); Est Glom Filt Rate - Afr Amer 14 mL/min (>60); Estimated Creatinine Clearance 19.46 ml/min; Glucose 76 mg/dL (74-106); Potassium 3.4 mmol/L (3.5-5.1); Sodium Level 137 mmol/L (136-145)
[2024-01-27] MEDS: Clopidogrel Bisulfate 75 MG Tablet PO (09:11)
[2024-01-27] MEDS: Aspirin E.C. 81 MG Tablet PO (09:11)
[2024-01-27] MEDS: Metoprolol(XL)Succ 25 MG Tablet PO (09:11)
[2024-01-27] MEDS: amLODIPine 10 MG Tablet PO (09:11)
[2024-01-27] MEDS: Potassium Chloride Oral Tablet 20 MEQ 40 MEQ PO (09:11)
[2024-01-27] MEDS: Pantoprazole Sodium 40 MG in 0.9% Normal Saline (100mL MB+) 100 ML 330 MG IV ×2 (09:14→21:10)
[2024-01-27] MEDS: Piperacil/Tazobactam 3.375 GM in 0.9% Normal Saline (50mL MB+) 50 ML IV ×2 (09:45→21:34)
--- NOTE | 2024-01-27 10:07 | PN_ITS ---
Subjective Subjective Patient seen and examined. He had no complaints and felt well. He received a unit of PRBC yesterday and says he feels much better. Hb today is 7.7. He is on Airvo this morning. He is for EGD today. Objective Data Objective Data Vital Signs: Vital Signs Temp Pulse Resp BP Pulse Ox O2 Del Method O2 Flow Rate 98.9 F 91 13 135/74 H 100 Airvo 6 01/27/24 09:08 01/27/24 09:11 01/27/24 09:08 01/27/24 09:08 01/27/24 09:08 01/27/24 09:30 01/27/24 07:00 FiO2 76 01/27/24 09:08 Oxygen Flow Rate (L/min) 6 Oxygen Delivery Method Airvo Weight: 212 lb 11.937 oz Body Mass Index (BMI) 29.7 Intake & Output: Intake and Output for Last 24 Hours 01/25/24 01/26/24 01/27/24 23:59 23:59 23:59 Intake Total 1930 / 1930 1815 / 1815 400 / 400 Output Total 825 / 825 4130 / 4130 700 / 700 Balance 1105 / 1105 -2315 / -2315 -300 / -300 Lab / Micro Data 01/27/24 05:25 01/27/24 05:25 Labs: Laboratory Results - last 24 hr 01/25/24 12:55: Crossmatch See Detail 01/26/24 10:00: Vitamin B12 794 01/26/24 11:13: POC Glucose 248 H 01/27/24 05:25: WBC 12.3 H, RBC 2.88 L, Hgb 7.7 L, Hct 24.1 L, MCV 83.7, MCH 26.7 L, MCHC 32.0, RDW Std Deviation 40.6, RDW Coeff of Marcella 13.5, Plt Count 255, MPV 9.7, Immature Gran % (Auto) 0.300, Neut % (Auto) 79.9 H, Lymph % (Auto) 8.3 L, [place] % (Auto) 8.1, Eos % (Auto) 2.8, Baso % (Auto) 0.6, Absolute Neuts (auto) 9.9 H, Absolute Lymphs (auto) 1.03, Nucleated RBC % 0, Sodium 137, Potassium 3.4 L, Chloride 104, Carbon Dioxide 26.0, Anion Gap 7, BUN 53 H, Creatinine 5.92 H, Estim Creat Clear Calc 19.46, Est GFR (MDRD) Af Amer 14 L, Est GFR (MDRD) Non-Af 11 L, BUN/Creatinine Ratio 9.0 L, Glucose 76, Calcium 8.7, Random Vancomycin 24.6 H Micro: Microbiology 01/26/24 15:00 Urine, Clean Catch Urine Culture - Preliminary Culture exhibits no growth. 01/25/24 17:58 Mucosa - Nasopharyngeal Respiratory Panel (PCR) - Final 01/25/24 17:58 Mucosa - Nasopharyngeal Coronavirus COVID-19 PCR - Final Physical Exam Const alert, oriented x3, no apparent distress and average body habitus General Appearance: cooperative HEENT normocephalic, head/scalp atraumatic, hearing grossly normal bilaterally and moist oral mucous membranes Eyes PERRL and EOMs intact bilaterally Neck no lymphadenopathy, supple and no JVD Lymph Lymphatic: no lymphadenopathy noted Resp Resp Narrative: mildly diminished breath sounds bibasally, no wheezes or crackles. On Airvo Cardio regular rate, regular rhythm, S1 normal heart sound, S2 normal heart sound and no murmurs GI normal to inspection, nondistended, normoactive bowel sounds, soft to palpation, non-tender and non-distended Extremity normal to inspection, full ROM, normal capillary refill, no clubbing, cyanosis or edema and no calf tenderness Extremity Narrative: dialysis catheter in chest General Extremity: no tenderness to palpation of joints or extremities Skin Skin Narrative: Patient has no evidence of rash, abscess or jaundice. General Skin Exam: no breakdown Neuro oriented x3, CN's II-XII intact bilaterally, moves all extremities, no focal motor deficits, no sensory deficits noted and deep tendon reflexes 2+ bilaterally Sensorium / Orientation: awake, alert, oriented to person, oriented to place and oriented to time Speech: speech normal Motor Exam: strength 5/5 throughout and general weakness Psych thought process normal, cooperative and affect normal Appearance: appropriate Assessment & Plan Assessment/Plan (1) Acute non-ST elevation myocardial infarction (NSTEMI): (2) CKD (chronic kidney disease), stage V: (3) NSTEMI, initial episode of care: (4) Acute kidney injury: (5) ESRF (end stage renal failure): PLAN: Plan #DKA in a known type 1 diabetic * resolved. * now back on his insulin pump after the batteries were changed. * #Nonstemi * s/p cardiac cath with PCI to LAD which had 70% blockage * 2D echo showed EF of 60% with no regional wall motion abnormalities * on aspirin, plavix, high intensity statin and metoprolol. NOt on LENI inhibitor or ARB due to ESRD * cardiology on board #Acute on chronic hypoxic respiratory failure * on Airvo. May e due to ESRD also as well as heart acute HFpEF. EF was 60% per echo done above * titrate oxygen to maintain sats >90% * breathing treatment with bronchodilators. * pulmonology on board. * #Fever * Patient spiked a fever to 102 Fahrenheit. Etiology is unclear. * wbc has trended down to 12.3 today. * urinalysis did show 1+ bacteria * Patient was started on IV vancomycin and Zosyn due to this fever. * Blood cultures pending. Urine culture negative. If blood cultures come back negative will dc IV antibiotics * #ESRD * Currently on dialysis via temporary catheter in the chest. * Temporary catheter was placed on 01/22. Nephrology on board. * #Acute on chronic anemia * hb today is 7.7. Was 7.4 yesterday and he received a unit of blood during this admission. * Iron profile showed iron deficiency anemia. * Stool for occult blood is pending. * In light of him being on aspirin and Plavix I think it is prudent that we rule out any occult bleed. GI consulted. * IV pantoprazole bid * for EGD today. GI on board. * #Benign essential hypertension: on amlodipine and metoprolol. IV hydralazine prn #Hyperlipidemia: on statin. DVT prophylaxis: SCDs Charges/Coding Visit Charges Inpatient E&M: 71882 Subs Hosp L2
--- NOTE | 2024-01-27 10:08 | PCM.RX.CS ---
Consult Antibiotic Management Pharmacy has been consulted to manage selected antibiotic: Vancomycin Type of Intervention Type of Consult: Follow-up Prior Doses of Antibiotics Prior Doses of Antibiotics Received/Current Regimen: received vanc 2000mg x1 for initial dose on 01/24 at 21:21 and then 750mg x1 on 01/25 at 15:59 after dialysis Labs Labs: Sodium 137 mmol/L (136-145) 01/27/24 05:25 Potassium 3.4 mmol/L (3.5-5.1) L 01/27/24 05:25 Chloride 104 mmol/L (98-107) 01/27/24 05:25 Carbon Dioxide 26.0 mmol/L (21.0-32.0) 01/27/24 05:25 Anion Gap 7 (5-15) 01/27/24 05:25 BUN 53 mg/dL (7-18) H 01/27/24 05:25 Creatinine 5.92 mg/dL (0.70-1.30) H 01/27/24 05:25 Est GFR (MDRD) Af Amer 14 mL/min (>60) L 01/27/24 05:25 Est GFR (MDRD) Non-Af 11 mL/min (>60) L 01/27/24 05:25 BUN/Creatinine Ratio 9.0 RATIO (10-20) L 01/27/24 05:25 Glucose 76 mg/dL (74-106) 01/27/24 05:25 Random Vancomycin 24.6 ug/mL (0.0-15.0) H 01/27/24 05:25 Microbiology Microbiology: Microbiology 01/26/24 15:00 Urine, Clean Catch Urine Culture - Preliminary Culture exhibits no growth. 01/25/24 17:58 Mucosa - Nasopharyngeal Respiratory Panel (PCR) - Final 01/25/24 17:58 Mucosa - Nasopharyngeal Coronavirus COVID-19 PCR - Final Dosing Weight Weight used for dosin.5 kg Estimated Creatinine Clearance Estimated Creatinine Clearance: on HD Goal Trough Goal Trough: 15-20 mcg/mL Pharmacy Plan for Drug Dosing Pharmacy Plan for Drug Dosing: The vanc random level drawn at 05:25 today was 24.6. This is above 20 so will not need a dose today. The patient's dialysis schedule is unknown at this time but when it is determined when the next session will be we will order a vanc random level to be taken before the next session so that further dosing can be determined at that time. Pharmacy Service will continue to monitor and adjust dosing as required.
--- NOTE | 2024-01-27 10:22 | PN.CC_ITS ---
Objective Data Objective Data Vital Signs: Vital Signs Last response 3 Temperature 37.2 C 01/27/24 09:08 Temperature Source Oral 01/27/24 09:08 Pulse Rate 91 01/27/24 09:11 Pulse Strength Normal (2+) 01/26/24 20:37 Respiratory Rate 13 01/27/24 09:08 Respiratory Effort Normal, Non-Labored 01/27/24 09:30 Respiratory Depth Normal 01/27/24 09:30 Respiratory Pattern Normal 01/27/24 09:30 Blood Pressure 135/74 H 01/27/24 09:08 Blood Pressure Mean 94 01/27/24 09:08 Blood Pressure Source Monitor 01/27/24 09:08 Blood Pressure Position Semi-Fowlers 01/27/24 09:08 Blood Pressure Location Right Arm 01/27/24 09:08 Pulse Ox 100 01/27/24 09:08 Oxygen Delivery Method Airvo 01/27/24 09:30 Oxygen Flow Rate (L/min) 6 01/27/24 07:00 Fraction of Inspired Oxygen (FIO2) 76 01/27/24 09:08 I&O: I&O Last 24 Hours 3 01/26/24 01/26/24 01/27/24 11:59 23:59 11:59 Intake Total 550 / 1815 1265 / 1815 400 / 400 Output Total 4130 / 4130 700 / 700 Balance 550 / -2315 -2865 / -2315 -300 / -300 I&O: Total Stay 3 01/22/24 20:08 thru 01/27/24 10:05 Intake Total 7165.07 Output Total 8605 Balance -1439.93 Current Meds Ordered / Administered: Current meds ordered / Administered 3 Generic Name Dose Route Start Last Admin Trade Name Freq PRN Reason Stop Dose Admin Acetaminophen 650 mg 01/23/24 15:23 01/25/24 20:08 Acetaminophen 325 Mg Tablet PO 650 mg Q4H PRN PRN Administration Pain 1-10 or Fever Amlodipine Besylate 10 mg 01/23/24 10:00 01/27/24 09:11 Amlodipine 10 Mg Tablet PO 10 mg DAILY CHILO Administration Protocol Aspirin 81 mg 01/24/24 08:00 01/27/24 09:11 Aspirin E.C. 81 Mg Tablet PO 81 mg BREAKFAST CHILO Administration Atorvastatin Calcium 20 mg 01/23/24 22:00 01/26/24 19:54 Atorvastatin Calcium 20 Mg Tablet PO 20 mg QHS CHILO Administration Atropine Sulfate 0.5 mg 01/23/24 12:59 Atropine Sulfate 1 Mg/10 Ml Syringe IV UD PRN HR <50 bpm Clopidogrel Bisulfate 75 mg 01/23/24 00:36 01/27/24 09:11 Clopidogrel Bisulfate 75 Mg Tablet PO 75 mg DAILY CHILO Administration Glucagon 1 mg 01/23/24 07:39 Glucagon 1 Mg/Ml Syringe IM X1 PRN Hypoglycemia Protocol Heparin Sodium (Porcine) 1,300 units 01/23/24 13:54 01/23/24 14:47 Heparin 10,000 Units/10 Ml Vial IV 1,300 units PRN PRN Administration Dialysis Line Heparin Sodium (Porcine) 5,000 unit 01/26/24 22:00 01/27/24 04:42 Heparin Injection (Vial) 5,000 Unit/Ml Vial SC Not Given TID HCILO Hydralazine HCl 10 mg 01/23/24 01:21 Hydralazine 20 Mg/Ml Vial IV Q6H PRN PRN SBP GREATER THAN 160 Protocol Hydroxyzine HCl 25 mg 01/23/24 01:21 Hydroxyzine 50 Mg/Ml Vial IM Q6H PRN PRN ANXIETY Dextrose 250 mls @ 999 mls/hr 01/23/24 01:21 Dextrose 10%-Water IV .Q16M PRN Hypoglycemic Protocol Protocol Piperacillin Sod/Tazobactam 50 mls @ 12.5 mls/hr 01/25/24 21:00 01/27/24 09:45 Sod 3.375 gm/ Sodium Chloride IV 12.5 mls/hr Q12 CHILO Administration Vancomycin IV-PHARMACY TO DOSE 500 mls @ 250 mls/hr 01/25/24 21:15 1 each/ Sodium Chloride IV PRN PRN Rx to Dose Protocol Pantoprazole Sodium 40 mg/ 110 mls @ 330 mls/hr 01/26/24 22:00 01/27/24 09:42 Sodium Chloride IV Infused Q12 CHILO Infusion Metoprolol Succinate 25 mg 01/23/24 10:00 01/27/24 09:11 Metoprolol(Xl)Succ 25 Mg Tablet PO 25 mg DAILY CHILO Administration Protocol Morphine Sulfate 2 mg 01/23/24 01:21 01/27/24 06:09 Morphine 2 Mg/Ml Syringe IV 2 mg Q4H PRN PRN Administration Pain Score 6-10 Ondansetron HCl 4 mg 01/23/24 01:21 01/26/24 03:58 Ondansetron 4 Mg/2 Ml Vial IV 4 mg Q6H PRN PRN Administration NAUSEA/VOMITING Oxycodone HCl 5 mg 01/23/24 15:23 01/23/24 21:15 Oxycodone 5 Mg Tablet PO 5 mg Q4H PRN PRN Administration Pain Score 6-10 Pharmacy Profile Note 1 each 01/25/24 20:18 Pharmacy Consult NOTE PRN PRN NOT SPECIFIED Promethazine HCl 25 mg 01/23/24 01:21 Promethazine 25 Mg/Ml Syringe IM Q4H PRN PRN BREAKTHROUGH NAUSEA Sodium Chloride 10 - 40 ml 01/23/24 01:29 01/27/24 06:09 0.9% Saline Lock 10 Ml Syringe IV 20 ml UD PRN Administration SALINE FLUSH Sodium Chloride 500 ml 01/23/24 12:59 0.9% Normal Saline 500 Ml Iv.Soln. IV BOLUS PRN VASO-VAGAL PROTOCOL Lab / Micro Data 01/27/24 05:25 01/27/24 05:25 Labs: Laboratory Results - last 24 hr 01/26/24 10:00: Vitamin B12 794 01/26/24 11:13: POC Glucose 248 H 01/27/24 05:25: WBC 12.3 H, RBC 2.88 L, Hgb 7.7 L, Hct 24.1 L, MCV 83.7, MCH 26.7 L, MCHC 32.0, RDW Std Deviation 40.6, RDW Coeff of Marcella 13.5, Plt Count 255, MPV 9.7, Immature Gran % (Auto) 0.300, Neut % (Auto) 79.9 H, Lymph % (Auto) 8.3 L, [place] % (Auto) 8.1, Eos % (Auto) 2.8, Baso % (Auto) 0.6, Absolute Neuts (auto) 9.9 H, Absolute Lymphs (auto) 1.03, Nucleated RBC % 0, Sodium 137, Potassium 3.4 L, Chloride 104, Carbon Dioxide 26.0, Anion Gap 7, BUN 53 H, Creatinine 5.92 H, Estim Creat Clear Calc 19.46, Est GFR (MDRD) Af Amer 14 L, Est GFR (MDRD) Non-Af 11 L, BUN/Creatinine Ratio 9.0 L, Glucose 76, Calcium 8.7, Random Vancomycin 24.6 H Micro: Microbiology 01/26/24 15:00 Urine, Clean Catch Urine Culture - Preliminary Culture exhibits no growth. Assessment and Plan . Assessment and plan: HPI 43 yo obese chronically ill diabetic man admitted 01/23/24 w/ CP and ECG changes c/w myocardial ischemia. Noted elevation of cardiac enzymes as well. He underwent LHC - LVEDP 23, significant CAD, including stenotic mid-LAD ==> s/p PCI/PAXTON He developed respiratory distress and required supplemental O2 and NIV support in the cardiac medical laboratory technician. Subsequently admitted to ICU. pCXR reveals interstitial edema. BNP around 1000 He also has a h/o advanced renal insufficiency - vascular HD access placed 01/23/24 - HD initiated w/ 1000 mL UF removed TTE performed and reveals WMA w/ preserved LVSF He is currently breathing O2 via HHFNC. He is reasonably comfortable at rest - significant dyspnea when lying flat. 01/27/24 He feels better Appears comfortable breathing O2 via N/C HD yesterday - 3300 mL UF AF past 24 hours - BCX NGTD No gross bleeding noted PHYSICAL EXAM GEN NAD VS as above HEENT N/C NECK obese COR RRR CHEST coarse ABD obese EXT minimal edema SKIN w/d MADAY NF ASSESSMENT 1. Acute respiratory failure requiring high-flow supplemental O2 and NIV support 2. CHF / pulmonary edema - elevated LVEDP 3. Acute [place] - s/p PCI/PAXTON LAD 4. ESRD 5. DM / obesity 6. Anemia 7. Fever TREATMENT PLAN -supplemental O2 -HD w/ UF -anti-PLT -sq UFH -sq insulin -f/u BCX - receiving empiric ABX -mobilize Critical Care Time: 50 min The entirety of this encounter was done via Telemedicine
--- NOTE | 2024-01-27 10:23 | CASEMGMT ---
Social Work SW met w/pt in regard to self pay status, provided resources including [employer], [employer] Macias, [facility], [employer] information and [employer], and prescription assistance information. Pt states he does not think he can get Medicaid for 30 days as he is not on SSI. SW explained will call Abril from [employer] for clarification. Message left for Abril, ADITHYA will continue to follow. WILBUR Valentine
--- NOTE | 2024-01-27 11:11 | CASEMGMT ---
Social Work SW spoke w/ADITHYA Forte who was covering ICU yesterday. She spoke w/Abril from [employer], it is anticipated pt will get Medicaid, waiting for a pending number. SW let pt know. WILBUR Valentine
[2024-01-27] MEDS: 0.9% Normal Saline 1,000 ML IV.SOLN. 1000 ML OPERA.SITE (11:42)
--- NOTE | 2024-01-27 11:47 | CM.UR ---
Social Work SW merrill conway/Abril, she does see something in pt's application called a 1619, showing pt is disabled but can still work, this dates back to 2017. She states pt has to be working in order to get Medicaid. She reapplied for pt for Medicaid, does think he will be eligible. WIBLUR Valentine
--- NOTE | 2024-01-27 12:14 | NURSING ---
Pt constantly observed with oxygen out of nose and on forehead. Educated on importance of leaving oxygen in place.
--- NOTE | 2024-01-27 12:39 | PCM.PN.REN ---
Subjective Subjective no new complaints. was on airvo this am, now on nasal cannula 6 L Objective Data Objective Data Vital Signs: Vital Signs Temp Pulse Resp BP Pulse Ox O2 Del Method O2 Flow Rate 97.5 F L 90 15 159/75 H 94 High Flow 6 01/27/24 12:00 01/27/24 12:28 01/27/24 12:28 01/27/24 12:28 01/27/24 12:28 01/27/24 12:28 01/27/24 12:28 FiO2 76 01/27/24 09:08 Oxygen Flow Rate (L/min) 6 Oxygen Delivery Method High Flow Weight: 96.5 kg Body Mass Index (BMI) 29.7 Intake & Output: Intake and Output for Last 24 Hours 01/25/24 01/26/24 01/27/24 23:59 23:59 23:59 Intake Total 1930 / 1930 1815 / 1815 400 / 400 Output Total 825 / 825 4130 / 4130 700 / 700 Balance 1105 / 1105 -2315 / -2315 -300 / -300 Lab / Micro Data 01/27/24 05:25 01/27/24 05:25 Labs: Laboratory Results - last 24 hr 01/27/24 05:25: WBC 12.3 H, RBC 2.88 L, Hgb 7.7 L, Hct 24.1 L, MCV 83.7, MCH 26.7 L, MCHC 32.0, RDW Std Deviation 40.6, RDW Coeff of Marcella 13.5, Plt Count 255, MPV 9.7, Immature Gran % (Auto) 0.300, Neut % (Auto) 79.9 H, Lymph % (Auto) 8.3 L, [place] % (Auto) 8.1, Eos % (Auto) 2.8, Baso % (Auto) 0.6, Absolute Neuts (auto) 9.9 H, Absolute Lymphs (auto) 1.03, Nucleated RBC % 0, Sodium 137, Potassium 3.4 L, Chloride 104, Carbon Dioxide 26.0, Anion Gap 7, BUN 53 H, Creatinine 5.92 H, Estim Creat Clear Calc 19.46, Est GFR (MDRD) Af Amer 14 L, Est GFR (MDRD) Non-Af 11 L, BUN/Creatinine Ratio 9.0 L, Glucose 76, Calcium 8.7, Random Vancomycin 24.6 H Micro: Microbiology 01/26/24 15:00 Urine, Clean Catch Urine Culture - Preliminary Culture exhibits no growth. 01/25/24 17:58 Mucosa - Nasopharyngeal Respiratory Panel (PCR) - Final 01/25/24 17:58 Mucosa - Nasopharyngeal Coronavirus COVID-19 PCR - Final Physical Exam Narrative Alert and orient x 3, no apparent distress S1, S2, RRR Lungs clear anteriorly and posteriorly. No wheezes, rhonchi or rales Abdomen soft, nontender No edema Left forearm AV fistula with positive thrill and bruit. Fistula is small. Assessment & Plan Assessment/Plan (1) CKD (chronic kidney disease), stage V: (2) Elevated troponin: (3) Hypertension: QUALIFIERS: Hypertension type: unspecified Qualified Code(s): I10 - Essential (primary) hypertension PLAN: Plan Impression/Plan: The patient is a 43-year-old male with past history of type 1 diabetes mellitus, hypertension, Charcot's foot, hyperlipidemia and chronic kidney disease stage G4. The patient is followed in nephrology office by me. Patient has been prepared for ESRD and had AV fistula placed in July 2023. Patient presented to hospital on 01/23/2024 with chest pain. The patient was diagnosed with NSTEMI. He underwent LHC on 01/23/2024 but did not require intervention. Nephrology is following for ANN on CKD. Acute kidney injury on chronic kidney disease stage G5. Patient likely now has ESRD. Baseline serum creatinines been around 5.00 mg/dL prior to this admission. He is status post AV fistula placement in July 2023. Serum creatinine has increased to 6.20 mg/dL on 01/22/2024. Started on dialysis. Left arm AV fistula radiocephalic is fairly small. Currently has a temporary right IJ nontunneled dialysis catheter. Acute hypoxic respiratory failure. Patient still requiring high flow oxygen. will plan for UF today. Most likely will need a tunneled dialysis catheter. Still spiking fevers. Sepsis workup ordered as per primary. Once infection clears or improves, will consult vascular surgery for a tunneled dialysis catheter placement. He may also need an intervention for his left arm radiocephalic fistula. dw hospitalist
[2024-01-27] MEDS: Heparin 10,000 UNITS/10 ML Vial IV (13:37)
[2024-01-27] MEDS: Heparin Injection (Vial) 5,000 UNIT/ML VIAL 5000 UNIT SC ×2 (14:40→21:12)
--- NOTE | 2024-01-27 19:23 | EX.PCM.PN.GI ---
Subjective Subjective The patient was supposed to have EGD today. He received 1 unit of packed red blood cells. He declined wanting to undergo any endoscopic procedures while he is in the hospital at this time. Objective Data Objective Data Vital Signs: Vital Signs Temp Pulse Resp BP Pulse Ox O2 Del Method O2 Flow Rate 97.5 F L 81 18 139/62 H 97 Airvo 5 01/27/24 12:00 01/27/24 18:00 01/27/24 18:00 01/27/24 18:00 01/27/24 18:00 01/27/24 18:00 01/27/24 17:00 FiO2 78 01/27/24 17:00 Oxygen Flow Rate (L/min) 5 Oxygen Delivery Method Airvo Weight: 206 lb 2.115 oz Body Mass Index (BMI) 28.8 Intake & Output: Intake and Output for Last 24 Hours 01/25/24 01/26/24 01/27/24 23:59 23:59 23:59 Intake Total 1930 / 1930 1815 / 1815 450 / 450 Output Total 825 / 825 4130 / 4130 3850 / 3850 Balance 1105 / 1105 -2315 / -2315 -3400 / -3400 Lab / Micro Data 01/27/24 05:25 01/27/24 05:25 Labs: Laboratory Results - last 24 hr 01/23/24 01:40: Vit D 1,25-Dihydroxy 17.0 L 01/27/24 05:25: WBC 12.3 H, RBC 2.88 L, Hgb 7.7 L, Hct 24.1 L, MCV 83.7, MCH 26.7 L, MCHC 32.0, RDW Std Deviation 40.6, RDW Coeff of Marcella 13.5, Plt Count 255, MPV 9.7, Immature Gran % (Auto) 0.300, Neut % (Auto) 79.9 H, Lymph % (Auto) 8.3 L, [place] % (Auto) 8.1, Eos % (Auto) 2.8, Baso % (Auto) 0.6, Absolute Neuts (auto) 9.9 H, Absolute Lymphs (auto) 1.03, Nucleated RBC % 0, Sodium 137, Potassium 3.4 L, Chloride 104, Carbon Dioxide 26.0, Anion Gap 7, BUN 53 H, Creatinine 5.92 H, Estim Creat Clear Calc 19.46, Est GFR (MDRD) Af Amer 14 L, Est GFR (MDRD) Non-Af 11 L, BUN/Creatinine Ratio 9.0 L, Glucose 76, Calcium 8.7, Random Vancomycin 24.6 H Micro: Microbiology 01/26/24 10:00 Blood Culture (Wb) - Right Forearm Bacteria Detection (PCR) - Preliminary Staphylococcus epidermidis 01/26/24 10:00 Blood Culture (Wb) - Right Forearm Blood Culture - Preliminary 01/26/24 15:00 Urine, Clean Catch Urine Culture - Preliminary Culture exhibits no growth. 01/25/24 17:58 Mucosa - Nasopharyngeal Respiratory Panel (PCR) - Final 01/25/24 17:58 Mucosa - Nasopharyngeal Coronavirus COVID-19 PCR - Final Physical Exam Narrative Alert and orient x 3, no apparent distress S1, S2, RRR Lungs clear anteriorly and posteriorly. No wheezes, rhonchi or rales Abdomen soft, nontender No edema Left forearm AV fistula with positive thrill and bruit. Fistula is small. Const alert, oriented x3, no apparent distress and average body habitus General Appearance: cooperative HEENT normocephalic, head/scalp atraumatic, hearing grossly normal bilaterally and moist oral mucous membranes Eyes PERRL and EOMs intact bilaterally Neck no lymphadenopathy, supple and no JVD Lymph Lymphatic: no lymphadenopathy noted Resp Resp Narrative: mildly diminished breath sounds bibasally, no wheezes or crackles. On Airvo Cardio regular rate, regular rhythm, S1 normal heart sound, S2 normal heart sound and no murmurs GI normal to inspection, nondistended, normoactive bowel sounds, soft to palpation, non-tender and non-distended Extremity normal to inspection, full ROM, normal capillary refill, no clubbing, cyanosis or edema and no calf tenderness Extremity Narrative: dialysis catheter in chest General Extremity: no tenderness to palpation of joints or extremities Skin Skin Narrative: Patient has no evidence of rash, abscess or jaundice. General Skin Exam: no breakdown Neuro oriented x3, CN's II-XII intact bilaterally, moves all extremities, no focal motor deficits, no sensory deficits noted and deep tendon reflexes 2+ bilaterally Sensorium / Orientation: awake, alert, oriented to person, oriented to place and oriented to time Speech: speech normal Motor Exam: strength 5/5 throughout and general weakness Psych thought process normal, cooperative and affect normal Appearance: appropriate Assessment & Plan Assessment/Plan (1) Diabetic ketoacidosis: QUALIFIERS: Diabetes mellitus type: type 1 Diabetes mellitus complication detail: without coma Qualified Code(s): E10.10 - Type 1 diabetes mellitus with ketoacidosis without coma (2) Acute kidney injury superimposed on chronic kidney disease: (3) DM type 1 (diabetes mellitus, type 1): QUALIFIERS: Diabetes mellitus complication status: with unspecified complications Qualified Code(s): E10.8 - Type 1 diabetes mellitus with unspecified complications (4) Congestive heart failure of unknown etiology: PLAN: Plan 43-year-old gentleman with diabetes mellitus complicated by DKA, end-stage renal disease and recent non-ST segment elevation [place] status post PTCA with stenting. His hemoglobin was 10.2 and is decreased down to 7.2. There is a higher incidence of upper GI bleed in the setting of recent stenting then lower GI bleed. He does have a history of anemia chronic disease secondary to CKD in the setting of iron deficiency anemia. He should undergo an upper and lower endoscopy. However given that he possibly cannot handle the volume from a prep he should undergo an upper endoscopy first. He still remains on aspirin, Plavix, statin. N.p.o. past midnight for upper endoscopy. 01/27/2024-patient is posttransfusion hemoglobin is up to 7.7 from 7.4. I will continue to follow the patient on the periphery. If he wants to undergo endoscopic procedure I would be glad to help him to determine etiology of his acute blood loss anemia. Charges/Coding Visit Charges Inpatient E&M: 95102 Subs Hosp L3
--- NOTE | 2024-01-27 20:22 | CPS ---
Patient refused PAP therapy for night time use.
[2024-01-27] MEDS: Atorvastatin Calcium 20 MG Tablet PO (21:11)
[2024-01-27] MEDS: Ondansetron 4 MG/2 ML Vial IV (21:13)
[2024-01-28] VITALS (46 sets, daily range): BP systolic 76–199; BP diastolic 53–81; PULSE 78–106; RESP 8–31; TEMP 36.3–36.9; O2SAT 87–100; BMI 28.9; BMI 27.8
[2024-01-28] MEDS: hydrALAZINE 20 MG/ML Vial 10 MG IV (00:10)
[2024-01-28] MEDS: 0.9% Saline Lock 10 ML Syringe IV ×3 (00:11→21:16)
[2024-01-28] MEDS: Morphine 2 MG/ML Syringe IV ×2 (02:18→21:13)
[2024-01-28 03:59] LABS: Absolute Lymphocyte Count 0.84 X10^3/uL (0.83-4.51); Basophil# 0.05 X10^3/uL; Basophil% 0.5 % (0-1); Eosinophils% 4.3 % (0-5); Hemoglobin 7.7 g/dL (13.0-16.5); Lymphocyte # 0.84 X10^3/ul (0.83-4.51); Mean Corp Hgb Conc 32.1 g/dL (32-36); Mean Corpuscular Hgb 26.9 pg (27.0-32.0); Mean Corpuscular Volume 83.9 fL (80-94); Mean Platelet Vol. 9.5 fl (6.2-12.0); Monocyte# 0.94 X10^3/uL; Monocyte% 10.1 % (0-10); NRBC Flagged by Analyzer 0 % (0-5); Neutrophil # 7.01 X10^3/uL (2.7-7.7); Neutrophil % 75.5 % (47-70); Platelet Count 270 K/mm3 (150-450); RBC Distribution Width CV 13.4 % (11.6-14.6); RBC Distribution Width SD 41.4 fl (35.1-43.9); Red Blood Count 2.86 M/mm3 (4.6-6.2); White Blood Count 9.3 K/mm3 (4.4-11.0)
[2024-01-28 04:53] LABS: Anion Gap 7 (5-15); BUN 54 mg/dL (7-18); BUN/Creat Ratio 8.5 RATIO (10-20); Calcium,Total 9.1 mg/dL (8.5-10.1); Chloride 105 mmol/L (98-107); Creatinine, Serum 6.32 mg/dL (0.70-1.30); EST Glomerular Filtration Rate 10 mL/min (>60); Est Glom Filt Rate - Afr Amer 13 mL/min (>60); Estimated Creatinine Clearance 17.97 ml/min; Glucose 264 mg/dL (74-106); Potassium 3.7 mmol/L (3.5-5.1); Sodium Level 136 mmol/L (136-145)
[2024-01-28 04:54] LABS: Vancomycin, Random Level 19.1 ug/mL (0.0-15.0)
[2024-01-28] MEDS: Vancomycin Trough/Random Due 1 LAB MC (05:14)
[2024-01-28] MEDS: oxyCODONE 5 MG Tablet PO (05:14)
[2024-01-28] MEDS: Heparin Injection (Vial) 5,000 UNIT/ML VIAL 5000 UNIT SC ×3 (05:15→21:08)
--- NOTE | 2024-01-28 09:32 | CASEMGMT ---
Pt does not have insurance currently but has a pending ROSIO application. It appears that the pt will need HD set up once he is ready for DC. This RN CM contacted admissions at [facility] who states that they have seen many pts get declined with a pending ROSIO application. The admissions professional states that we can at least try and make the referral (once appropriate), and then they will send to billing to see if the pt can get approved. Will continue to follow.
--- NOTE | 2024-01-28 09:38 | PCM.RX.CS ---
Consult Antibiotic Management Pharmacy has been consulted to manage selected antibiotic: Vancomycin Type of Intervention Type of Consult: Follow-up Prior Doses of Antibiotics Prior Doses of Antibiotics Received/Current Regimen: the most recent dose of vanc was 750mg IV x1 after HD on 01/25 at 15:59 Labs Labs: Sodium 136 mmol/L (136-145) 01/28/24 04:20 Potassium 3.7 mmol/L (3.5-5.1) 01/28/24 04:20 Chloride 105 mmol/L (98-107) 01/28/24 04:20 Carbon Dioxide 24.0 mmol/L (21.0-32.0) 01/28/24 04:20 Anion Gap 7 (5-15) 01/28/24 04:20 BUN 54 mg/dL (7-18) H 01/28/24 04:20 Creatinine 6.32 mg/dL (0.70-1.30) H 01/28/24 04:20 Est GFR (MDRD) Af Amer 13 mL/min (>60) L 01/28/24 04:20 Est GFR (MDRD) Non-Af 10 mL/min (>60) L 01/28/24 04:20 BUN/Creatinine Ratio 8.5 RATIO (10-20) L 01/28/24 04:20 Glucose 264 mg/dL (74-106) H 01/28/24 04:20 Random Vancomycin 19.1 ug/mL (0.0-15.0) H 01/28/24 04:20 Microbiology Microbiology: Microbiology 01/26/24 10:00 Blood Culture (Wb) - Right Forearm Bacteria Detection (PCR) - Final Staphylococcus epidermidis 01/26/24 10:00 Blood Culture (Wb) - Right Forearm Blood Culture - Preliminary 01/26/24 15:00 Urine, Clean Catch Urine Culture - Preliminary Culture exhibits no growth. 01/25/24 17:58 Mucosa - Nasopharyngeal Respiratory Panel (PCR) - Final 01/25/24 17:58 Mucosa - Nasopharyngeal Coronavirus COVID-19 PCR - Final Dosing Weight Weight used for dosin.7 kg Estimated Creatinine Clearance Estimated Creatinine Clearance: on HD Goal Trough Goal Trough: 15-20 mcg/mL Pharmacy Plan for Drug Dosing Pharmacy Plan for Drug Dosing: The vanc random level drawn this morning at 04:20 was 19.1. This is between 15 and 20 so, per protocol in dosing vanc in HD patients, will give a 500mg x1 dose today after HD is done. Will order another random level to be drawn before the next HD session after today once it is known what day that will be. Pharmacy Service will continue to monitor and adjust dosing as required. Follow-Up Labs Follow-Up Labs: Trough: Vancomycin (random) Date/Time Labs Ordered Labs to be done on [date and time ordered]: before next HD session
--- NOTE | 2024-01-28 10:00 | PN_ITS ---
Subjective Subjective Patient seen and examined. He has no active complaints. He was weaned down to 5L of oxygen but became hypoxic so had to be put back on the BIPAP. Review of systems is otherwise negative. He is undergoing dialysis. Objective Data Objective Data Vital Signs: Vital Signs Temp Pulse Resp BP Pulse Ox O2 Del Method O2 Flow Rate 97.3 F L 84 19 H 143/69 H 99 Airvo 5 01/28/24 08:43 01/28/24 09:45 01/28/24 09:45 01/28/24 09:45 01/28/24 09:45 01/28/24 09:45 01/28/24 08:45 FiO2 35 01/28/24 07:11 Oxygen Flow Rate (L/min) 5 Oxygen Delivery Method Airvo Weight: 206 lb 9.17 oz Body Mass Index (BMI) 28.9 Intake & Output: Intake and Output for Last 24 Hours 01/26/24 01/27/24 01/28/24 23:59 23:59 23:59 Intake Total 1815 / 1815 560 / 560 50 / 50 Output Total 4130 / 4130 3850 / 3850 650 / 650 Balance -2315 / -2315 -3290 / -3290 -600 / -600 Lab / Micro Data 01/28/24 03:45 01/28/24 04:20 Labs: Laboratory Results - last 24 hr 01/23/24 01:40: Vit D 1,25-Dihydroxy 17.0 L 01/28/24 03:45: WBC 9.3, RBC 2.86 L, Hgb 7.7 L, Hct 24.0 L, MCV 83.9, MCH 26.9 L , MCHC 32.1, RDW Std Deviation 41.4, RDW Coeff of Marcella 13.4, Plt Count 270, MPV 9.5, Immature Gran % (Auto) 0.600, Neut % (Auto) 75.5 H, Lymph % (Auto) 9.0 L, M michael % (Auto) 10.1 H, Eos % (Auto) 4.3, Baso % (Auto) 0.5, Absolute Neuts (auto) 7.0, Absolute Lymphs (auto) 0.84, Nucleated RBC % 0 01/28/24 04:20: Sodium 136, Potassium 3.7, Chloride 105, Carbon Dioxide 24.0, Anion Gap 7, BUN 54 H, Creatinine 6.32 H, Estim Creat Clear Calc 17.97, Est GFR (MDRD) Af Amer 13 L, Est GFR (MDRD) Non-Af 10 L, BUN/Creatinine Ratio 8.5 L, G lucose 264 H, Calcium 9.1, Random Vancomycin 19.1 H Micro: Microbiology 01/26/24 10:00 Blood Culture (Wb) - Right Forearm Bacteria Detection (PCR) - Final Staphylococcus epidermidis 01/26/24 10:00 Blood Culture (Wb) - Right Forearm Blood Culture - Preliminary 01/26/24 15:00 Urine, Clean Catch Urine Culture - Preliminary Culture exhibits no growth. 01/25/24 17:58 Mucosa - Nasopharyngeal Respiratory Panel (PCR) - Final 01/25/24 17:58 Mucosa - Nasopharyngeal Coronavirus COVID-19 PCR - Final Physical Exam Const alert, oriented x3, no apparent distress and average body habitus General Appearance: cooperative HEENT normocephalic, head/scalp atraumatic, hearing grossly normal bilaterally and moist oral mucous membranes Eyes PERRL and EOMs intact bilaterally Neck no lymphadenopathy, supple and no JVD Neck Narrative: right IJ temporry dialysis catheter. Lymph Lymphatic: no lymphadenopathy noted Resp Resp Narrative: mildly diminished breath sounds bibasally, no wheezes or crackles. On Airvo Cardio regular rate, regular rhythm, S1 normal heart sound, S2 normal heart sound and no murmurs GI normal to inspection, nondistended, normoactive bowel sounds, soft to palpation, non-tender and non-distended Extremity normal to inspection, full ROM, normal capillary refill, no clubbing, cyanosis or edema and no calf tenderness Extremity Narrative: dialysis catheter in chest General Extremity: no tenderness to palpation of joints or extremities Skin General Skin Exam: no breakdown Neuro oriented x3, CN's II-XII intact bilaterally, moves all extremities, no focal motor deficits, no sensory deficits noted and deep tendon reflexes 2+ bilaterally Sensorium / Orientation: awake, alert, oriented to person, oriented to place and oriented to time Speech: speech normal Motor Exam: strength 5/5 throughout and general weakness Psych thought process normal, cooperative and affect normal Appearance: appropriate Assessment & Plan Assessment/Plan (1) Acute non-ST elevation myocardial infarction (NSTEMI): (2) CKD (chronic kidney disease), stage V: (3) NSTEMI, initial episode of care: (4) Acute kidney injury: (5) ESRF (end stage renal failure): PLAN: Plan #DKA in a known type 1 diabetic * resolved. * now back on his insulin pump after the batteries were changed. * #Nonstemi * s/p cardiac cath with PCI to LAD which had 70% blockage * 2D echo showed EF of 60% with no regional wall motion abnormalities * on aspirin, plavix, high intensity statin and metoprolol. NOt on LENI inhibitor or ARB due to ESRD * cardiology on board #Acute on chronic hypoxic respiratory failure * on Airvo. Was weaned down to 5L of oxygen today, but became hypoxic, so put back on Airbo * May be due to ESRD also as well as heart acute HFpEF. EF was 60% per echo done above * he spiked a fever so was placed on IV vancomycin and zosyn also * titrate oxygen to maintain sats >90% * breathing treatment with bronchodilators. * pulmonology on board. * #Fever * Patient spiked a fever to 102 Fahrenheit. Etiology is unclear. * wbc is down to 9.3. * urinalysis did show 1+ bacteria * Patient was started on IV vancomycin and Zosyn due to this fever. * Blood cultures growing Staph epidermidis. ID consulted. * Urine culture negative. * #ESRD * Currently on dialysis via temporary catheter in the chest. * Temporary catheter was placed on 01/22. Nephrology on board. * #Acute on chronic anemia * hb today remains 7.7. * Iron profile showed iron deficiency anemia. * Stool for occult blood still is pending. * In light of him being on aspirin and Plavix I think it is prudent that we rule out any occult bleed. * GI on board; patient refused EGD yesterday. * IV pantoprazole bid * #Benign essential hypertension: on amlodipine and metoprolol. IV hydralazine prn #Hyperlipidemia: on statin. DVT prophylaxis: SCDs Charges/Coding Visit Charges Inpatient E&M: 22739 Subs Hosp L2
[2024-01-28] MEDS: PureFlow B 3K Dialysis Soln 1 BAG 6 BAG PF (11:32)
[2024-01-28] MEDS: 0.9% Normal Saline 1,000 ML IV.SOLN. 1000 ML OPERA.SITE (11:32)
[2024-01-28] MEDS: Heparin 10,000 UNITS/10 ML Vial IV (11:33)
--- NOTE | 2024-01-28 11:48 | CASEMGMT ---
Social Work SW spoke with Abril from [facility] who states pt's Medicaid has been reinstated with effective date of 12/29. SW met with pt to inform and pt states JFS called him this morning and relayed the same information. BLAIR Herring
--- NOTE | 2024-01-28 12:54 | PN.CC_ITS ---
Objective Data Objective Data Vital Signs: Vital Signs Last response 3 Temperature 36.4 C L 01/28/24 12:38 Temperature Source Temporal 01/28/24 12:38 Pulse Rate 87 01/28/24 12:38 Pulse Strength Normal (2+) 01/26/24 20:37 Respiratory Rate 13 01/28/24 12:38 Respiratory Effort Normal, Non-Labored 01/28/24 12:38 Respiratory Depth Normal 01/28/24 12:38 Respiratory Pattern Normal 01/28/24 12:38 Blood Pressure 127/74 H 01/28/24 12:38 Blood Pressure Mean 91 01/28/24 12:38 Blood Pressure Source Monitor 01/28/24 12:38 Blood Pressure Position Semi-Fowlers 01/28/24 12:38 Blood Pressure Location Right Arm 01/28/24 12:38 Pulse Ox 93 01/28/24 12:38 Oxygen Delivery Method Airvo 01/28/24 12:38 Oxygen Flow Rate (L/min) 5 01/28/24 09:00 Fraction of Inspired Oxygen (FIO2) 35 01/28/24 07:11 I&O: I&O Last 24 Hours 3 01/27/24 01/28/24 01/28/24 23:59 11:59 23:59 Intake Total 160 / 560 50 / 50 Output Total 3150 / 3850 650 / 4370 3720 / 4370 Balance -2990 / -3290 -600 / -4320 -3720 / -4320 I&O: Total Stay 3 01/22/24 20:08 thru 01/28/24 12:38 Intake Total 7375.07 Output Total 01380 Balance -8749.93 Current Meds Ordered / Administered: Current meds ordered / Administered 3 Generic Name Dose Route Start Last Admin Trade Name Freq PRN Reason Stop Dose Admin Acetaminophen 650 mg 01/23/24 15:23 01/25/24 20:08 Acetaminophen 325 Mg Tablet PO 650 mg Q4H PRN PRN Administration Pain 1-10 or Fever Amlodipine Besylate 10 mg 01/23/24 10:00 01/27/24 09:11 Amlodipine 10 Mg Tablet PO 10 mg DAILY CHILO Administration Protocol Aspirin 81 mg 01/24/24 08:00 01/27/24 09:11 Aspirin E.C. 81 Mg Tablet PO 81 mg BREAKFAST CHILO Administration Atorvastatin Calcium 20 mg 01/23/24 22:00 01/27/24 21:11 Atorvastatin Calcium 20 Mg Tablet PO 20 mg QHS CHILO Administration Atropine Sulfate 0.5 mg 01/23/24 12:59 Atropine Sulfate 1 Mg/10 Ml Syringe IV UD PRN HR <50 bpm Clopidogrel Bisulfate 75 mg 01/23/24 00:36 01/27/24 09:11 Clopidogrel Bisulfate 75 Mg Tablet PO 75 mg DAILY CHILO Administration Glucagon 1 mg 01/23/24 07:39 Glucagon 1 Mg/Ml Syringe IM X1 PRN Hypoglycemia Protocol Hemodialysis Solution 6 bag 01/28/24 08:00 01/28/24 11:32 Pureflow B 3k Dialysis Soln 1 Bag PF 01/28/24 20:01 6 bag UD CHILO Administration Protocol Heparin Sodium (Porcine) 1,300 units 01/23/24 13:54 01/23/24 14:47 Heparin 10,000 Units/10 Ml Vial IV 1,300 units PRN PRN Administration Dialysis Line Heparin Sodium (Porcine) 5,000 unit 01/26/24 22:00 01/28/24 05:15 Heparin Injection (Vial) 5,000 Unit/Ml Vial SC 5,000 unit TID CHILO Administration Heparin Sodium (Porcine) 1,000 - 3,000 units 01/28/24 08:00 01/28/24 11:33 Heparin 10,000 Units/10 Ml Vial IV 01/28/24 20:00 1,300 units X1 PRN Administration HD catheter closing Hydralazine HCl 10 mg 01/23/24 01:21 01/28/24 00:10 Hydralazine 20 Mg/Ml Vial IV 10 mg Q6H PRN PRN Administration SBP GREATER THAN 160 Protocol Hydroxyzine HCl 25 mg 01/23/24 01:21 Hydroxyzine 50 Mg/Ml Vial IM Q6H PRN PRN ANXIETY Dextrose 250 mls @ 999 mls/hr 01/23/24 01:21 Dextrose 10%-Water IV .Q16M PRN Hypoglycemic Protocol Protocol Piperacillin Sod/Tazobactam 50 mls @ 12.5 mls/hr 01/25/24 21:00 01/28/24 01:37 Sod 3.375 gm/ Sodium Chloride IV Infused Q12 CHILO Infusion Vancomycin IV-PHARMACY TO DOSE 500 mls @ 250 mls/hr 01/25/24 21:15 1 each/ Sodium Chloride IV PRN PRN Rx to Dose Protocol Pantoprazole Sodium 40 mg/ 110 mls @ 330 mls/hr 01/26/24 22:00 01/27/24 21:35 Sodium Chloride IV Infused Q12 CHILO Infusion Vancomycin HCl 500 mg in 100 mls @ 100 mls/hr 01/28/24 15:00 IV 01/28/24 15:59 X1 ONE Metoprolol Succinate 25 mg 01/23/24 10:00 01/27/24 09:11 Metoprolol(Xl)Succ 25 Mg Tablet PO 25 mg DAILY CHIOL Administration Protocol Morphine Sulfate 2 mg 01/23/24 01:21 01/28/24 02:18 Morphine 2 Mg/Ml Syringe IV 2 mg Q4H PRN PRN Administration Pain Score 6-10 Ondansetron HCl 4 mg 01/23/24 01:21 01/27/24 21:13 Ondansetron 4 Mg/2 Ml Vial IV 4 mg Q6H PRN PRN Administration NAUSEA/VOMITING Oxycodone HCl 5 mg 01/23/24 15:23 01/28/24 05:14 Oxycodone 5 Mg Tablet PO 5 mg Q4H PRN PRN Administration Pain Score 6-10 Pharmacy Profile Note 1 each 01/25/24 20:18 Pharmacy Consult NOTE PRN PRN NOT SPECIFIED Promethazine HCl 25 mg 01/23/24 01:21 Promethazine 25 Mg/Ml Syringe IM Q4H PRN PRN BREAKTHROUGH NAUSEA Sodium Chloride 10 - 40 ml 01/23/24 01:29 01/28/24 11:32 0.9% Saline Lock 10 Ml Syringe IV 40 ml UD PRN Administration SALINE FLUSH Sodium Chloride 500 ml 01/23/24 12:59 0.9% Normal Saline 500 Ml Iv.Soln. IV BOLUS PRN VASO-VAGAL PROTOCOL Sodium Chloride 1,000 ml 01/28/24 08:00 01/28/24 11:32 0.9% Normal Saline 1,000 Ml Iv.Soln. OPERA.SITE 01/28/24 20:00 1,000 ml X1 CHILO Administration Sodium Chloride 200 ml 01/28/24 08:00 0.9% Normal Saline 1,000 Ml Iv.Soln. IV 01/28/24 20:00 X1 PRN to maintain SBP >90mmHg during Dialysis Lab / Micro Data 01/28/24 03:45 01/28/24 04:20 Labs: Laboratory Results - last 24 hr 01/23/24 01:40: Vit D 1,25-Dihydroxy 17.0 L 01/28/24 03:45: WBC 9.3, RBC 2.86 L, Hgb 7.7 L, Hct 24.0 L, MCV 83.9, MCH 26.9 L , MCHC 32.1, RDW Std Deviation 41.4, RDW Coeff of Marcella 13.4, Plt Count 270, MPV 9.5, Immature Gran % (Auto) 0.600, Neut % (Auto) 75.5 H, Lymph % (Auto) 9.0 L, M michael % (Auto) 10.1 H, Eos % (Auto) 4.3, Baso % (Auto) 0.5, Absolute Neuts (auto) 7.0, Absolute Lymphs (auto) 0.84, Nucleated RBC % 0 01/28/24 04:20: Sodium 136, Potassium 3.7, Chloride 105, Carbon Dioxide 24.0, Anion Gap 7, BUN 54 H, Creatinine 6.32 H, Estim Creat Clear Calc 17.97, Est GFR (MDRD) Af Amer 13 L, Est GFR (MDRD) Non-Af 10 L, BUN/Creatinine Ratio 8.5 L, G lucose 264 H, Calcium 9.1, Random Vancomycin 19.1 H Micro: Microbiology 01/26/24 10:00 Blood Culture (Wb) - Right Forearm Bacteria Detection (PCR) - Final Staphylococcus epidermidis 01/26/24 10:00 Blood Culture (Wb) - Right Forearm Blood Culture - Preliminary 01/26/24 15:00 Urine, Clean Catch Urine Culture - Preliminary Culture exhibits no growth. Assessment and Plan . Assessment and plan: HPI 43 yo obese chronically ill diabetic man admitted 01/23/24 w/ CP and ECG changes c/w myocardial ischemia. Noted elevation of cardiac enzymes as well. 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 Subsequently admitted to ICU. pCXR reveals interstitial edema. BNP around 1000 He also has a h/o advanced renal insufficiency - vascular HD access placed 01/23/24 - HD initiated w/ 1000 mL UF removed TTE performed and reveals WMA w/ preserved LVSF He is currently breathing O2 via HHFNC. He is reasonably comfortable at rest - significant dyspnea when lying flat. 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 Acute respiratory failure requiring high-flow supplemental O2 and NIV support 2. CHF / pulmonary edema - elevated LVEDP 3. Acute PA - s/p PCI/PAXTON LAD 4. ESRD 5. DM / obesity 6. Anemia 7. Fever - resolved 8. 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 Critical Care Time: 50 min The entirety of this encounter was done via Telemedicine
[2024-01-28] MEDS: amLODIPine 10 MG Tablet PO (14:38)
[2024-01-28] MEDS: Aspirin E.C. 81 MG Tablet PO (14:38)
[2024-01-28] MEDS: Clopidogrel Bisulfate 75 MG Tablet PO (14:38)
[2024-01-28] MEDS: Metoprolol(XL)Succ 25 MG Tablet PO (14:38)
[2024-01-28] MEDS: Piperacil/Tazobactam 3.375 GM in 0.9% Normal Saline (50mL MB+) 50 ML IV ×2 (14:42→21:07)
--- NOTE | 2024-01-28 14:57 | PCM.CONS.GEN ---
Assessment & Plan Assessment/Plan (1) Acute kidney injury superimposed on chronic kidney disease: (2) Positive blood culture: PLAN: Treating for pneumonia. Wbc and temps have normalized now. Single bcx with MSSE per pcr. Will stop vanc, cont zosyn for now. Will follow, thank you HPI Consult Data Date of Consult: 01/28/24 HPI Narrative Reason for Consultation: (+) bcx HPI Narrative: LAURIE GONZALES, is a 43 M with h/o IDDM, CAD, CKD, presented with acute onset of chest pain, reported sugar at home would not come down, even after 80+ units of insulin. Denies any fever or chills. Seen by cardiology and neph here. Had associated n/v, but denies any aspiration. No dysuria. No cough or SOB. 01/24, fever to 102.5, started on vanc/zosyn, cxs sent. Feeling better, had HD today. Full ROS performed and neg except as noted above. [facility] Medical History Acute kidney injury Hypertension Pre-op testing ESRF (end stage renal failure) Stage 4 chronic kidney disease Diabetes mellitus type 1 Insulin pump titration Presence of insulin pump CKD (chronic kidney disease) Obesity Abscess Charcot foot due to diabetes mellitus Type 1 diabetes mellitus Home Medications ?Medication ?Instructions ?Recorded ?Last Taken ?Type blood sugar diagnostic (FreeStyle #100 ea 10/08/21 Unknown Rx Lite Strips) blood-glucose meter,continuous #1 ea 10/08/21 Unknown Rx (Dexcom G6 Operations And Maintenance Specialist) lancing device with lancets kit #100 ea 11/26/21 Unknown Rx (OneTouch Delica Plus Lancing Device kit) pen needle, diabetic 32 gauge x #150 ea 02/26/22 Unknown Rx 32 (BD Ultra-Fine Carol Pen Needle) alcohol swabs (BD Alcohol Swabs) 1 pad topical .4 times daily #200 05/20/22 Unknown Rx ea furosemide 40 mg tablet 80 mg PO BID 07/30/23 08/01/23 History insulin aspart U-100 100 unit/mL 80 unit (0.8 mL) continuous 08/18/23 Unknown Rx subcutaneous solution (Novolog subcutaneous infusion .continuous U-100 Insulin aspart) #72 mL rosuvastatin 10 mg tablet 10 mg PO DAILY #90 tabs 11/07/23 Unknown Rx amlodipine 10 mg tablet 10 mg PO DAILY #90 tabs 11/17/23 Unknown Rx metoprolol succinate 25 mg 25 mg PO DAILY #30 tabs 11/27/23 Unknown Rx tablet,extended release 24 hr insulin pump cart,automated,BT #30 ea 01/06/24 Unknown Rx blood-glucose sensor (Dexcom G6 #9 ea 01/16/24 Unknown Rx Sensor device) blood-glucose transmitter (Dexcom #1 ea 01/16/24 Unknown Rx G6 Transmitter device) Allergy/AdvReac Type Severity Reaction Status Date / Time No Known Allergies Allergy Verified 01/22/24 20:12 Family History Mother Diabetes Thyroid disorder Grandmother Diabetes Grandfather Diabetes Surgical History History of surgery on lower extremity Social History Smoking Status: Never smoker alcohol intake: never substance use type: does not use Physical Exam Const alert, oriented x3 and no apparent distress General Appearance: cooperative HEENT normocephalic and head/scalp atraumatic Eyes PERRL and EOMs intact bilaterally Neck supple and No nodes Resp normal air movement and clear to auscultation bilaterally Resp Narrative: diminished R base Cardio regular rate and regular rhythm GI soft to palpation, non-tender and non-distended Extremity General Extremity: Negative for edema Skin no rashes or lesions noted Neuro CN's II-XII intact bilaterally Lab / Micro Data Attestation: I reviewed the patient's lab results. 01/28/24 03:45 01/28/24 04:20 Labs: Laboratory Results - last 24 hr 01/28/24 03:45: WBC 9.3, RBC 2.86 L, Hgb 7.7 L, Hct 24.0 L, MCV 83.9, MCH 26.9 L, MCHC 32.1, RDW Std Deviation 41.4, RDW Coeff of Marcella 13.4, Plt Count 270, MPV 9.5, Immature Gran % (Auto) 0.600, Neut % (Auto) 75.5 H, Lymph % (Auto) 9.0 L, [place]on % (Auto) 10.1 H, Eos % (Auto) 4.3, Baso % (Auto) 0.5, Absolute Neuts (auto) 7.0, Absolute Lymphs (auto) 0.84, Nucleated RBC % 0 01/28/24 04:20: Sodium 136, Potassium 3.7, Chloride 105, Carbon Dioxide 24.0, Anion Gap 7, BUN 54 H, Creatinine 6.32 H, Estim Creat Clear Calc 17.97, Est GFR (MDRD) Af Amer 13 L, Est GFR (MDRD) Non-Af 10 L, BUN/Creatinine Ratio 8.5 L, Glucose 264 H, Calcium 9.1, Random Vancomycin 19.1 H Micro: Microbiology 01/26/24 10:00 Blood Culture (Wb) - Right Forearm Bacteria Detection (PCR) - Final Staphylococcus epidermidis 01/26/24 10:00 Blood Culture (Wb) - Right Forearm Blood Culture - Preliminary
--- NOTE | 2024-01-28 20:02 | PN.RENAL_ITS ---
Subjective Subjective no new events Objective Data Objective Data Vital Signs: Vital Signs Temp Pulse Resp BP Pulse Ox O2 Del Method O2 Flow Rate 98.1 F 81 14 124/60 H 94 Room Air 2 01/28/24 16:00 01/28/24 19:00 01/28/24 19:00 01/28/24 19:00 01/28/24 19:00 01/28/24 19:00 01/28/24 15:05 FiO2 35 01/28/24 07:11 Oxygen Flow Rate (L/min) 2 Oxygen Delivery Method Room Air Weight: 90 kg Body Mass Index (BMI) 27.8 Intake & Output: Intake and Output for Last 24 Hours 01/26/24 01/27/24 01/28/24 23:59 23:59 23:59 Intake Total 1815 / 1815 560 / 560 100 / 100 Output Total 4130 / 4130 3850 / 3850 4370 / 4370 Balance -2315 / -2315 -3290 / -3290 -4270 / -4270 Lab / Micro Data 01/28/24 03:45 01/28/24 04:20 Labs: Laboratory Results - last 24 hr 01/28/24 03:45: WBC 9.3, RBC 2.86 L, Hgb 7.7 L, Hct 24.0 L, MCV 83.9, MCH 26.9 L , MCHC 32.1, RDW Std Deviation 41.4, RDW Coeff of Marcella 13.4, Plt Count 270, MPV 9.5, Immature Gran % (Auto) 0.600, Neut % (Auto) 75.5 H, Lymph % (Auto) 9.0 L, M michael % (Auto) 10.1 H, Eos % (Auto) 4.3, Baso % (Auto) 0.5, Absolute Neuts (auto) 7.0, Absolute Lymphs (auto) 0.84, Nucleated RBC % 0 01/28/24 04:20: Sodium 136, Potassium 3.7, Chloride 105, Carbon Dioxide 24.0, Anion Gap 7, BUN 54 H, Creatinine 6.32 H, Estim Creat Clear Calc 17.97, Est GFR (MDRD) Af Amer 13 L, Est GFR (MDRD) Non-Af 10 L, BUN/Creatinine Ratio 8.5 L, G lucose 264 H, Calcium 9.1, Random Vancomycin 19.1 H Micro: Microbiology 01/26/24 10:00 Blood Culture (Wb) - Right Forearm Bacteria Detection (PCR) - Final Staphylococcus epidermidis 01/26/24 10:00 Blood Culture (Wb) - Right Forearm Blood Culture - Preliminary 01/26/24 15:00 Urine, Clean Catch Urine Culture - Preliminary Culture exhibits no growth. 01/25/24 17:58 Mucosa - Nasopharyngeal Respiratory Panel (PCR) - Final 01/25/24 17:58 Mucosa - Nasopharyngeal Coronavirus COVID-19 PCR - Final Physical Exam Narrative Alert and orient x 3, no apparent distress S1, S2, RRR Lungs clear anteriorly and posteriorly. No wheezes, rhonchi or rales Abdomen soft, nontender No edema Left forearm AV fistula with positive thrill and bruit. Fistula is small. Assessment & Plan Assessment/Plan (1) CKD (chronic kidney disease), stage V: (2) Elevated troponin: (3) Hypertension: QUALIFIERS: Hypertension type: unspecified Qualified Code(s): I10 - Essential (primary) hypertension PLAN: Plan Impression/Plan: The patient is a 43-year-old male with past history of type 1 diabetes mellitus, hypertension, Charcot's foot, hyperlipidemia and chronic kidney disease stage G4. The patient is followed in nephrology office by me. Patient has been prepared for ESRD and had AV fistula placed in July 2023. Patient presented to hospital on 01/23/2024 with chest pain. The patient was diagnosed with NSTEMI. He underwent LHC on 01/23/2024 but did not require intervention. Nephrology is following for ANN on CKD. Acute kidney injury on chronic kidney disease stage G5. Patient likely now has ESRD. Baseline serum creatinines been around 5.00 mg/dL prior to this admission. He is status post AV fistula placement in July 2023. Serum creatinine has increased to 6.20 mg/dL on 01/22/2024. Started on dialysis. Left arm AV fistula radiocephalic is fairly small. Currently has a temporary right IJ nontunneled dialysis catheter. Acute hypoxic respiratory failure. better 10 L removed in last 3 days. O2 requirements down. Bp is ok. will reevaluate for UF tomorrow
[2024-01-28] MEDS: Pantoprazole Sodium 40 MG in 0.9% Normal Saline (100mL MB+) 100 ML 330 MG IV (21:07)
[2024-01-28] MEDS: Atorvastatin Calcium 20 MG Tablet PO (21:08)
[2024-01-29] VITALS (27 sets, daily range): BP systolic 107–161; BP diastolic 51–95; PULSE 68–91; RESP 12–186; TEMP 36.6–36.9; O2SAT 92–98; BMI 28.3
[2024-01-29] MEDS: Heparin Injection (Vial) 5,000 UNIT/ML VIAL 5000 UNIT SC ×3 (05:40→20:48)
[2024-01-29 06:05] LABS: Absolute Lymphocyte Count 1.16 X10^3/uL (0.83-4.51); Absolute Neutrophil Count 4.9 X10^3/uL (2.0-7.7); Basophil# 0.09 X10^3/uL; Basophil% 1.2 % (0-1); Eosinophil# 0.35 X10^3/uL; Eosinophils% 4.7 % (0-5); Hematocrit 24.5 % (40-54); Hemoglobin 8.1 g/dL (13.0-16.5); Lymphocyte # 1.16 X10^3/ul (0.83-4.51); Lymphocyte % 15.6 % (19-41); Mean Corp Hgb Conc 33.1 g/dL (32-36); Mean Corpuscular Hgb 27.5 pg (27.0-32.0); Mean Corpuscular Volume 83.1 fL (80-94); Mean Platelet Vol. 9.6 fl (6.2-12.0); Monocyte# 0.93 X10^3/uL; Monocyte% 12.5 % (0-10); NRBC Flagged by Analyzer 0 % (0-5); Neutrophil # 4.85 X10^3/uL (2.7-7.7); Neutrophil % 65.5 % (47-70); Platelet Count 327 K/mm3 (150-450); RBC Distribution Width CV 13.1 % (11.6-14.6); RBC Distribution Width SD 39.6 fl (35.1-43.9); Red Blood Count 2.95 M/mm3 (4.6-6.2); White Blood Count 7.4 K/mm3 (4.4-11.0)
[2024-01-29 06:29] LABS: Anion Gap 6 (5-15); BUN 36 mg/dL (7-18); BUN/Creat Ratio 7.6 RATIO (10-20); Calcium,Total 9.3 mg/dL (8.5-10.1); Chloride 105 mmol/L (98-107); Creatinine, Serum 4.73 mg/dL (0.70-1.30); EST Glomerular Filtration Rate 15 mL/min (>60); Est Glom Filt Rate - Afr Amer 18 mL/min (>60); Estimated Creatinine Clearance 23.81 ml/min; Glucose 154 mg/dL (74-106); Potassium 3.8 mmol/L (3.5-5.1); Sodium Level 137 mmol/L (136-145)
[2024-01-29] MEDS: amLODIPine 10 MG Tablet PO (08:35)
[2024-01-29] MEDS: Aspirin E.C. 81 MG Tablet PO (08:36)
[2024-01-29] MEDS: Clopidogrel Bisulfate 75 MG Tablet PO (08:36)
[2024-01-29] MEDS: Metoprolol(XL)Succ 25 MG Tablet PO (08:36)
[2024-01-29] MEDS: Pantoprazole Sodium 40 MG in 0.9% Normal Saline (100mL MB+) 100 ML 330 MG IV ×2 (08:40→20:48)
--- NOTE | 2024-01-29 10:14 | PCM.PN.ID ---
Physical Exam Narrative Feeling better, no fever, no SOB, no n/v/d. Const alert and no apparent distress General Appearance: cooperative Resp normal air movement and clear to auscultation bilaterally Cardio regular rate and regular rhythm GI soft to palpation, non-tender and non-distended Skin no rashes or lesions noted ID ID: Route of nutrition/ use of supplements: [] Nutritional Intake: [] IV Site: [] Chery Catheter: [] Assessment & Plan Assessment/Plan (1) Acute kidney injury superimposed on chronic kidney disease: (2) Positive blood culture: PLAN: Treating for pneumonia. Wbc and temps have normalized now. Single bcx with MSSE per pcr. Will narrow to ceftriaxone, plan on stopping in 2 days. Will follow
--- NOTE | 2024-01-29 10:20 | PN_ITS ---
Subjective Subjective Patient seen and examined. HE has no complaints. He is on room air today. Review of systems is otherwise negative. Objective Data Objective Data Vital Signs: Vital Signs Temp Pulse Resp BP Pulse Ox O2 Del Method O2 Flow Rate 98 F 78 17 129/66 H 96 Room Air 2 01/29/24 06:00 01/29/24 08:36 01/29/24 07:00 01/29/24 08:36 01/29/24 07:00 01/29/24 07:00 01/28/24 15:05 FiO2 35 01/28/24 07:11 Oxygen Flow Rate (L/min) 2 Oxygen Delivery Method Room Air Weight: 202 lb 6.15 oz Body Mass Index (BMI) 28.3 Intake & Output: Intake and Output for Last 24 Hours 01/27/24 01/28/24 01/29/24 23:59 23:59 23:59 Intake Total 560 / 560 210 / 210 160 / 160 Output Total 3850 / 3850 4370 / 4370 700 / 700 Balance -3290 / -3290 -4160 / -4160 -540 / -540 Lab / Micro Data 01/29/24 05:45 01/29/24 05:45 Labs: Laboratory Results - last 24 hr 01/29/24 05:45: WBC 7.4, RBC 2.95 L, Hgb 8.1 L, Hct 24.5 L, MCV 83.1, MCH 27.5, MCHC 33.1, RDW Std Deviation 39.6, RDW Coeff of Marcella 13.1, Plt Count 327, MPV 9.6, Immature Gran % (Auto) 0.500, Neut % (Auto) 65.5, Lymph % (Auto) 15.6 L, M michael % (Auto) 12.5 H, Eos % (Auto) 4.7, Baso % (Auto) 1.2 H, Absolute Neuts (auto) 4.9, Absolute Lymphs (auto) 1.16, Nucleated RBC % 0, Sodium 137, Potassium 3.8, Chloride 105, Carbon Dioxide 26.0, Anion Gap 6, BUN 36 H, C reatinine 4.73 H, Estim Creat Clear Calc 23.81, Est GFR (MDRD) Af Amer 18 L, Est GFR (MDRD) Non-Af 15 L, BUN/Creatinine Ratio 7.6 L, Glucose 154 H, Calcium 9.3 Micro: Microbiology 01/26/24 10:00 Blood Culture (Wb) - Right Forearm Bacteria Detection (PCR) - Final Staphylococcus epidermidis 01/26/24 10:00 Blood Culture (Wb) - Right Forearm Blood Culture - Preliminary Staphylococcus epidermidis 01/26/24 15:00 Urine, Clean Catch Urine Culture - Final Culture exhibits no growth. 01/25/24 17:58 Mucosa - Nasopharyngeal Respiratory Panel (PCR) - Final 01/25/24 17:58 Mucosa - Nasopharyngeal Coronavirus COVID-19 PCR - Final Physical Exam Const alert, oriented x3, no apparent distress and average body habitus General Appearance: cooperative HEENT normocephalic, head/scalp atraumatic, hearing grossly normal bilaterally and moist oral mucous membranes Eyes PERRL and EOMs intact bilaterally Neck no lymphadenopathy, supple and no JVD Neck Narrative: right IJ temporry dialysis catheter. Lymph Lymphatic: no lymphadenopathy noted Resp Resp Narrative: mildly diminished breath sounds bibasally, no wheezes or crackles. On room air. Cardio regular rate, regular rhythm, S1 normal heart sound, S2 normal heart sound and no murmurs GI normal to inspection, nondistended, normoactive bowel sounds, soft to palpation, non-tender and non-distended Extremity normal to inspection, full ROM, normal capillary refill, no clubbing, cyanosis or edema and no calf tenderness Extremity Narrative: dialysis catheter in chest General Extremity: no tenderness to palpation of joints or extremities Skin General Skin Exam: no breakdown Neuro oriented x3, CN's II-XII intact bilaterally, moves all extremities, no focal motor deficits, no sensory deficits noted and deep tendon reflexes 2+ bilaterally Sensorium / Orientation: awake, alert, oriented to person, oriented to place and oriented to time Speech: speech normal Motor Exam: strength 5/5 throughout and general weakness Psych thought process normal, cooperative and affect normal Appearance: appropriate Assessment & Plan Assessment/Plan (1) Acute non-ST elevation myocardial infarction (NSTEMI): (2) CKD (chronic kidney disease), stage V: (3) NSTEMI, initial episode of care: (4) Acute kidney injury: (5) ESRF (end stage renal failure): PLAN: Plan #DKA in a known type 1 diabetic * resolved. * now back on his insulin pump * #Nonstemi * s/p cardiac cath with PCI to LAD which had 70% blockage * 2D echo showed EF of 60% with no regional wall motion abnormalities * on aspirin, plavix, high intensity statin and metoprolol. NOt on LENI inhibitor or ARB due to ESRD * cardiology on board #Acute on chronic hypoxic respiratory failure * resolving. Now on room air. * May be due to ESRD also as well as heart acute HFpEF. EF was 60% per echo done above * he spiked a fever so was placed on IV vancomycin and zosyn also. Now on IV ceftriaxone per ID * titrate oxygen to maintain sats >90% * breathing treatment with bronchodilators. * pulmonology on board. * #Strep bacteremia * Patient spiked a fever to 102 Fahrenheit. * urinalysis did show 1+ bacteria * Patient was started on IV vancomycin and Zosyn due to this fever. * Blood cultures growing Staph epidermidis. * Urine culture negative. * ID on board; vancomycin and zosyn dc'd, now on only IV ceftriaxone. * #ESRD * Currently on dialysis via temporary catheter in the chest. * Temporary catheter was placed on 01/22. Nephrology on board. * #Acute on chronic anemia * hb today is up to 8.1 * Iron profile showed iron deficiency anemia. * Stool for occult blood still is pending. * In light of him being on aspirin and Plavix I think it is prudent that we rule out any occult bleed. * GI on board; patient refused EGD * IV pantoprazole bid; will switch to PO pantoprazole * #Benign essential hypertension: on amlodipine and metoprolol. IV hydralazine prn #Hyperlipidemia: on statin. DVT prophylaxis: SCDs Charges/Coding Visit Charges Inpatient E&M: 41865 Subs Hosp L2
--- NOTE | 2024-01-29 11:16 | CASEMGMT ---
Dr. Diaz states that the pt will need OP HD set up. Dr. Diaz updated that the pt was approved for [facility]. The MD states that the pt will receive a tunneled line tomorrow hopefully. Will follow. KANDACE CM to pt room at this time. This RN CM reviewed a verbal list of local OP HD centers for the pt to attend. Pt states that he would prefer to go to [facility] in [place] (Dr. Diaz also prefers this location). Pt states that he has transportation to get to the OP HD center and denies concerns. Pt states that he would prefer the MWF schedule and that he prefers the afternoon. This RN CM included these details in the referral. Referral sent to [facility] at this time via the portal with the appropriate documentation. Awaiting return response.
[2024-01-29] MEDS: Ceftriaxone 2 GM in 0.9% Normal Saline (50mL MB+) 50 ML IV (11:27)
--- NOTE | 2024-01-29 16:14 | PN.RENAL_ITS ---
Subjective Subjective Off all oxygen today. Breathing looks comfortable. WBC is normalized. Objective Data Objective Data Vital Signs: Vital Signs Temp Pulse Resp BP Pulse Ox O2 Del Method O2 Flow Rate 98.5 F 77 18 140/89 H 95 Room Air 2 01/29/24 11:48 01/29/24 14:00 01/29/24 14:00 01/29/24 14:00 01/29/24 15:09 01/29/24 15:09 01/28/24 15:05 FiO2 35 01/28/24 07:11 Oxygen Flow Rate (L/min) 2 Oxygen Delivery Method Room Air Weight: 91.8 kg Body Mass Index (BMI) 28.3 Intake & Output: Intake and Output for Last 24 Hours 01/27/24 01/28/24 01/29/24 23:59 23:59 23:59 Intake Total 560 / 560 210 / 210 210 / 210 Output Total 3850 / 3850 4370 / 4370 700 / 700 Balance -3290 / -3290 -4160 / -4160 -490 / -490 Lab / Micro Data 01/29/24 05:45 01/29/24 05:45 Labs: Laboratory Results - last 24 hr 01/29/24 05:45: WBC 7.4, RBC 2.95 L, Hgb 8.1 L, Hct 24.5 L, MCV 83.1, MCH 27.5, MCHC 33.1, RDW Std Deviation 39.6, RDW Coeff of Marcella 13.1, Plt Count 327, MPV 9.6, Immature Gran % (Auto) 0.500, Neut % (Auto) 65.5, Lymph % (Auto) 15.6 L, M michael % (Auto) 12.5 H, Eos % (Auto) 4.7, Baso % (Auto) 1.2 H, Absolute Neuts (auto) 4.9, Absolute Lymphs (auto) 1.16, Nucleated RBC % 0, Sodium 137, Potassium 3.8, Chloride 105, Carbon Dioxide 26.0, Anion Gap 6, BUN 36 H, C reatinine 4.73 H, Estim Creat Clear Calc 23.81, Est GFR (MDRD) Af Amer 18 L, Est GFR (MDRD) Non-Af 15 L, BUN/Creatinine Ratio 7.6 L, Glucose 154 H, Calcium 9.3 Micro: Microbiology 01/26/24 10:00 Blood Culture (Wb) - Right Forearm Bacteria Detection (PCR) - Final Staphylococcus epidermidis 01/26/24 10:00 Blood Culture (Wb) - Right Forearm Blood Culture - Preliminary Staphylococcus epidermidis 01/26/24 15:00 Urine, Clean Catch Urine Culture - Final Culture exhibits no growth. 01/25/24 17:58 Mucosa - Nasopharyngeal Respiratory Panel (PCR) - Final 01/25/24 17:58 Mucosa - Nasopharyngeal Coronavirus COVID-19 PCR - Final Physical Exam Narrative Alert and orient x 3, no apparent distress S1, S2, RRR Lungs clear anteriorly and posteriorly. No wheezes, rhonchi or rales Abdomen soft, nontender No edema Left forearm AV fistula with positive thrill and bruit. Fistula is small. Assessment & Plan Assessment/Plan (1) CKD (chronic kidney disease), stage V: (2) Elevated troponin: (3) Hypertension: QUALIFIERS: Hypertension type: unspecified Qualified Code(s): I10 - Essential (primary) hypertension PLAN: Plan Impression/Plan: The patient is a 43-year-old male with past history of type 1 diabetes mellitus, hypertension, Charcot's foot, hyperlipidemia and chronic kidney disease stage G4. The patient is followed in nephrology office by me. Patient has been prepared for ESRD and had AV fistula placed in July 2023. Patient presented to hospital on 01/23/2024 with chest pain. The patient was diagnosed with NSTEMI. He underwent LHC on 01/23/2024 but did not require intervention. Nephrology is following for ANN on CKD. Acute kidney injury on chronic kidney disease stage G5. Patient likely now has ESRD. Baseline serum creatinines been around 5.00 mg/dL prior to this admission. He is status post AV fistula placement in July 2023. Serum creatinine has increased to 6.20 mg/dL on 01/22/2024. Started on dialysis. Left arm AV fistula radiocephalic is fairly small. Currently has a temporary right IJ nontunneled dialysis catheter. Acute hypoxic respiratory failure. better So far 10 L removed this week. Breathing is back to baseline. Currently off oxygen. Will need ongoing dialysis. ID on consult. WBC has normalized. Tunneled dialysis catheter when okay with ID service. Discussed with case management, will need placement in outpatient dialysis unit as well. He is interested in home hemodialysis, we will try to set this up as well. Next dialysis scheduled for tomorrow. heri hospitalist
--- NOTE | 2024-01-29 20:17 | EX.PCM.CON.S ---
Assessment & Plan Assessment/Plan (1) Acute kidney injury superimposed on chronic kidney disease: PLAN: Patient is a 43-year-old male with ANN on CKD amidst a host of other pathologies related to a presentation for DKA on 01/23/2024. Patient currently dialyzing through a nontunneled right internal jugular hemodialysis catheter. Patient requires placement of a tunneled hemodialysis catheter because an AV fistula that was created by Dr. Vargas in July 2023 has failed to mature to an optimal size. On exam there is still a thrill and no pulsatility. I believe I identify a collateral vein proximal to the anastomosis. Thus I discussed with Mr. Gonzales that he should establish following with Dr. Valadez of vascular surgery since he continues to do vascular access for dialysis and patient may be a candidate for ligation of collaterals to help optimize his fistula. In the interim I do find it reasonable to pursue tunneled catheter insertion. However, the timing for this catheter insertion remains in some question as I see patient's most recent blood cultures were positive for Staph epidermidis. Tomorrow I will plan to discuss patient's case with both nephrology and infectious disease. Tentatively he is on the schedule for tomorrow afternoon so he will be made n.p.o. past midnight. If we are to proceed with a catheter placement tomorrow I would ask ICU nursing to remove the existing catheter at bedside so that he arrives to the OR without a catheter in place. Additionally, patient is made aware that he would be at a slightly increased risk of periprocedural bleeding since we would be proceeding while on aspirin and Plavix for his recent NSTEMI event. I have shared with him that literature supports this practice and that there has been no significant increase in documented bleeding events following the procedure when done in the setting. Patient was given the opportunity ask questions?and did so relating to any additional considerations he would have to make as an outpatient. Will plan to follow-up with other stakeholders in patient's care tomorrow before proceeding to the OR for tunneled hemodialysis catheter placement?provided there is a consensus that this is the optimal timing. Alternatively, patient would be looking at tunneled hemodialysis catheter placement on 02/03/2024 at the earliest. HPI Consult Data Date of Consult: 01/29/24 HPI Narrative Reason for Consultation: Insertion of tunneled hemodialysis catheter HPI Narrative: LAURIE GONZALES, is a 43 M who presented to [facility] on 01/23/2024 in DKA and was diagnosed with an NSTEMI as well. During his hospital stay was treated for pneumonia and a single blood culture did show positivity for MSSE. Thus infectious disease has been involved in his care. Early in the course of his treatment Mr. Gonzales was noted to have evidence of ANN on CKD and underwent placement of a bedside right internal jugular temporary hemodialysis catheter. He is now improved and plans are being discussed for outpatient disposition. Thus, tunneled hemodialysis catheter insertion has been requested by primary team. Given patient's history of CKD approaching ESRD he underwent placement of a left AV fistula by Dr. Vargas in July 2023. Patient reports that he no longer followed up because neither Dr. Vargas had retired but was told by nephrology that his fistula was on the smaller side to start dialysis. Patient has no prior history of central line placement (before the central line mentioned above). Patient denies any history of MRSA infections. [facility] Medical History Acute kidney injury Hypertension Pre-op testing ESRF (end stage renal failure) Stage 4 chronic kidney disease Diabetes mellitus type 1 Insulin pump titration Presence of insulin pump CKD (chronic kidney disease) Obesity Abscess Charcot foot due to diabetes mellitus Type 1 diabetes mellitus Home Medications ?Medication ?Instructions ?Recorded ?Last Taken ?Type blood sugar diagnostic (FreeStyle #100 ea 10/08/21 Unknown Rx Lite Strips) blood-glucose meter,continuous #1 ea 10/08/21 Unknown Rx (Dexcom G6 Information Strategist) lancing device with lancets kit #100 ea 11/26/21 Unknown Rx (OneTouch Delica Plus Lancing Device kit) pen needle, diabetic 32 gauge x #150 ea 02/26/22 Unknown Rx 5/32 (BD Ultra-Fine Carol Pen Needle) alcohol swabs (BD Alcohol Swabs) 1 pad topical .4 times daily #200 05/20/22 Unknown Rx ea furosemide 40 mg tablet 80 mg PO BID 07/30/23 08/01/23 History insulin aspart U-100 100 unit/mL 80 unit (0.8 mL) continuous 08/18/23 Unknown Rx subcutaneous solution (Novolog subcutaneous infusion .continuous U-100 Insulin aspart) #72 mL rosuvastatin 10 mg tablet 10 mg PO DAILY #90 tabs 11/07/23 Unknown Rx amlodipine 10 mg tablet 10 mg PO DAILY #90 tabs 11/17/23 Unknown Rx metoprolol succinate 25 mg 25 mg PO DAILY #30 tabs 11/27/23 Unknown Rx tablet,extended release 24 hr insulin pump cart,automated,BT #30 ea 01/06/24 Unknown Rx blood-glucose sensor (Dexcom G6 #9 ea 01/16/24 Unknown Rx Sensor device) blood-glucose transmitter (Dexcom #1 ea 01/16/24 Unknown Rx G6 Transmitter device) Allergy/AdvReac Type Severity Reaction Status Date / Time No Known Allergies Allergy Verified 01/22/24 20:12 Family History Mother Diabetes Thyroid disorder Grandmother Diabetes Grandfather Diabetes Surgical History History of surgery on lower extremity Social History Smoking Status: Never smoker alcohol intake: never substance use type: does not use Physical Exam Const alert, oriented x3 and no apparent distress Neck Neck Narrative: Right-sided hemodialysis catheter emanating from the lateral approach to the right internal jugular vein. There is no insertion site erythema or tenderness. Chest Chest Narrative: Benign appearance of right chest wall without erythema or rashes. Vital Signs/Image Vital Signs/Narrative: Vital Signs Pulse Resp BP Pulse Ox O2 Del Method 01/29/24 17:00 78 14 138/74 H 98 Room Air 01/29/24 16:43 Room Air Physical Exam Extremities: Positive for - (Left upper extremity with palpable thrill in fistula) Lab / Micro Data 01/29/24 05:45 01/29/24 05:45 Labs: Laboratory Results - last 24 hr 01/29/24 05:45: WBC 7.4, RBC 2.95 L, Hgb 8.1 L, Hct 24.5 L, MCV 83.1, MCH 27.5, MCHC 33.1, RDW Std Deviation 39.6, RDW Coeff of Marcella 13.1, Plt Count 327, MPV 9.6, Immature Gran % (Auto) 0.500, Neut % (Auto) 65.5, Lymph % (Auto) 15.6 L, [place] % (Auto) 12.5 H, Eos % (Auto) 4.7, Baso % (Auto) 1.2 H, Absolute Neuts (auto) 4.9, Absolute Lymphs (auto) 1.16, Nucleated RBC % 0, Sodium 137, Potassium 3.8, Chloride 105, Carbon Dioxide 26.0, Anion Gap 6, BUN 36 H, Creatinine 4.73 H, Estim Creat Clear Calc 23.81, Est GFR (MDRD) Af Amer 18 L, Est GFR (MDRD) Non-Af 15 L, BUN/Creatinine Ratio 7.6 L, Glucose 154 H, Calcium 9.3 Micro: Microbiology 01/26/24 10:00 Blood Culture (Wb) - Right Forearm Bacteria Detection (PCR) - Final Staphylococcus epidermidis 01/26/24 10:00 Blood Culture (Wb) - Right Forearm Blood Culture - Preliminary Staphylococcus epidermidis 01/26/24 15:00 Urine, Clean Catch Urine Culture - Final Culture exhibits no growth. Charges/Coding Visit Charges Inpatient E&M: 76491 Subs Hosp L2
[2024-01-29] MEDS: Atorvastatin Calcium 20 MG Tablet PO (20:47)
--- NOTE | 2024-01-29 22:28 | NURSING ---
Patient able to self check blood glucose. Blood glucose was 241, all insulin delivery and diabetic care performed by the patient. This RN was standby for assistance, but patient independent.
[2024-01-30] VITALS (37 sets, daily range): BP systolic 36–173; BP diastolic 46–101; PULSE 77–99; RESP 13–22; TEMP 36.4–37; O2SAT 90–98; BMI 28.1; BMI 27.6
--- NOTE | 2024-01-30 03:30 | EKG12_ITS ---
Test Reason : pre op Blood Pressure : */* mmHG Vent. Rate : 82 BPM Atrial Rate : 82 BPM P-R Int : 142 ms QRS Dur : 82 ms QT Int : 404 ms P-R-T Axes : 40 -30 81 degrees QTcB Int : 472 ms Normal sinus rhythm Left axis deviation Abnormal ECG When compared with ECG of 26-Jan-2024 05:22, QRS axis Shifted left Confirmed by MELISSA LACEY, DANIELLE ([id number]), market editor KEYLA MORENO ([id number]) on 01/30/2024 12:44:40 PM Referred By: Confirmed By: DANIELLE TORRES MD
[2024-01-30 04:00] LABS: Absolute Lymphocyte Count 1.21 X10^3/uL (0.83-4.51); Absolute Neutrophil Count 4.2 X10^3/uL (2.0-7.7); Basophil# 0.07 X10^3/uL; Eosinophil# 0.35 X10^3/uL; Eosinophils% 5.2 % (0-5); Hematocrit 26.8 % (40-54); Hemoglobin 8.3 g/dL (13.0-16.5); Lymphocyte # 1.21 X10^3/ul (0.83-4.51); Lymphocyte % 17.8 % (19-41); Mean Corpuscular Hgb 26.3 pg (27.0-32.0); Mean Corpuscular Volume 84.8 fL (80-94); Monocyte# 0.87 X10^3/uL; Monocyte% 12.8 % (0-10); NRBC Flagged by Analyzer 0 % (0-5); Neutrophil # 4.23 X10^3/uL (2.7-7.7); Neutrophil % 62.5 % (47-70); Platelet Count 374 K/mm3 (150-450); RBC Distribution Width CV 13.2 % (11.6-14.6); RBC Distribution Width SD 41.1 fl (35.1-43.9); Red Blood Count 3.16 M/mm3 (4.6-6.2); White Blood Count 6.8 K/mm3 (4.4-11.0)
[2024-01-30 04:11] LABS: Partial Thromboplast Time 28.8 Seconds (24.1-36.2)
[2024-01-30 04:14] LABS: Anion Gap 6 (5-15); BUN 37 mg/dL (7-18); BUN/Creat Ratio 7.2 RATIO (10-20); Calcium,Total 9.2 mg/dL (8.5-10.1); Chloride 108 mmol/L (98-107); Creatinine, Serum 5.15 mg/dL (0.70-1.30); EST Glomerular Filtration Rate 13 mL/min (>60); Est Glom Filt Rate - Afr Amer 16 mL/min (>60); Estimated Creatinine Clearance 21.83 ml/min; Glucose 147 mg/dL (74-106); Potassium 3.7 mmol/L (3.5-5.1); Sodium Level 139 mmol/L (136-145)
[2024-01-30] MEDS: PureFlow B 3K Dialysis Soln 1 BAG 6 BAG PF (08:24)
[2024-01-30] MEDS: 0.9% Normal Saline 1,000 ML IV.SOLN. 1000 ML OPERA.SITE (08:24)
[2024-01-30] MEDS: 0.9% Saline Lock 10 ML Syringe IV ×2 (08:24→11:29)
--- NOTE | 2024-01-30 09:43 | PN_ITS ---
Subjective Subjective Patient seen and examined. He had no active complaints. He was undergoing dialysis. Review of systems is otherwise negative. He is for tunneled dialysis catheter insertion today. Objective Data Objective Data Vital Signs: Vital Signs Temp Pulse Resp BP Pulse Ox O2 Del Method O2 Flow Rate 98.6 F 83 14 126/91 H 95 Room Air 2 01/30/24 06:00 01/30/24 09:31 01/30/24 09:31 01/30/24 09:31 01/30/24 09:31 01/30/24 09:31 01/28/24 15:05 FiO2 35 01/28/24 07:11 Oxygen Flow Rate (L/min) 2 Oxygen Delivery Method Room Air Weight: 201 lb 11.567 oz Body Mass Index (BMI) 28.1 Intake & Output: Intake and Output for Last 24 Hours 01/28/24 01/29/24 01/30/24 23:59 23:59 23:59 Intake Total 210 / 210 680 / 680 0 / 0 Output Total 4370 / 4370 700 / 700 0 / 0 Balance -4160 / -4160 -20 / -20 0 / 0 Lab / Micro Data 01/30/24 03:45 01/30/24 03:45 Labs: Laboratory Results - last 24 hr 01/30/24 03:45: WBC 6.8, RBC 3.16 L, Hgb 8.3 L, Hct 26.8 L, MCV 84.8, MCH 26.3 L , MCHC 31.0 L D, RDW Std Deviation 41.1, RDW Coeff of Marcella 13.2, Plt Count 374, MPV 9.0, Immature Gran % (Auto) 0.700, Neut % (Auto) 62.5, Lymph % (Auto) 17.8 L , [place] % (Auto) 12.8 H, Eos % (Auto) 5.2 H, Baso % (Auto) 1.0, Absolute Neuts (auto) 4.2, Absolute Lymphs (auto) 1.21, Nucleated RBC % 0, APTT 28.8, Sodium 139, Potassium 3.7, Chloride 108 H, Carbon Dioxide 25.0, Anion Gap 6, BUN 37 H, Creatinine 5.15 H, Estim Creat Clear Calc 21.83, Est GFR (MDRD) Af Amer 16 L, E st GFR (MDRD) Non-Af 13 L, BUN/Creatinine Ratio 7.2 L, Glucose 147 H, Calcium 9.2 Micro: Microbiology 01/26/24 10:00 Blood Culture (Wb) - Right Forearm Bacteria Detection (PCR) - Final Staphylococcus epidermidis 01/26/24 10:00 Blood Culture (Wb) - Right Forearm Blood Culture - Preliminary Staphylococcus epidermidis 01/26/24 15:00 Urine, Clean Catch Urine Culture - Final Culture exhibits no growth. 01/25/24 17:58 Mucosa - Nasopharyngeal Respiratory Panel (PCR) - Final 01/25/24 17:58 Mucosa - Nasopharyngeal Coronavirus COVID-19 PCR - Final Physical Exam Const alert, oriented x3, no apparent distress and average body habitus General Appearance: cooperative and well developed HEENT normocephalic, head/scalp atraumatic, hearing grossly normal bilaterally and moist oral mucous membranes Eyes PERRL and EOMs intact bilaterally Neck no lymphadenopathy, supple and no JVD Neck Narrative: right IJ temporry dialysis catheter. Lymph Lymphatic: no lymphadenopathy noted Resp normal respiratory effort, normal air movement, no retractions, no use of accessory muscles and clear to auscultation bilaterally Resp Narrative: mildly diminished breath sounds bibasally, no wheezes or crackles. On room air. Cardio regular rate, regular rhythm, S1 normal heart sound, S2 normal heart sound and no murmurs GI normal to inspection, nondistended, normoactive bowel sounds, soft to palpation, non-tender and non-distended Extremity normal to inspection, full ROM, normal capillary refill, no clubbing, cyanosis or edema and no calf tenderness Extremity Narrative: dialysis catheter in chest General Extremity: no tenderness to palpation of joints or extremities Skin Skin Narrative: Patient has no evidence of rash, abscess or jaundice. General Skin Exam: no breakdown Neuro oriented x3, CN's II-XII intact bilaterally, moves all extremities, no focal motor deficits, no sensory deficits noted and deep tendon reflexes 2+ bilaterally Sensorium / Orientation: awake, alert, oriented to person, oriented to place and oriented to time Speech: speech normal Motor Exam: strength 5/5 throughout and general weakness Psych thought process normal, cooperative and affect normal Appearance: appropriate Assessment & Plan Assessment/Plan (1) Acute non-ST elevation myocardial infarction (NSTEMI): (2) CKD (chronic kidney disease), stage V: (3) NSTEMI, initial episode of care: (4) Acute kidney injury: (5) ESRF (end stage renal failure): PLAN: Plan #DKA in a known type 1 diabetic * resolved. * now back on his insulin pump * #Nonstemi * s/p cardiac cath with PCI to LAD which had 70% blockage * 2D echo showed EF of 60% with no regional wall motion abnormalities * on aspirin, plavix, high intensity statin and metoprolol. NOt on LENI inhibitor or ARB due to ESRD * cardiology on board #Acute on chronic hypoxic respiratory failure * resolvws. Now on room air. * May be due to ESRD also as well as heart acute HFpEF. EF was 60% per echo done above * he spiked a fever so was placed on IV vancomycin and zosyn also. Now on IV ceftriaxone per ID * titrate oxygen to maintain sats >90% * breathing treatment with bronchodilators. * pulmonology on board. * #Staph bacteremia * Patient spiked a fever to 102 Fahrenheit. * urinalysis did show 1+ bacteria * Patient was started on IV vancomycin and Zosyn due to this fever. * Blood cultures growing Staph epidermidis. * Urine culture negative. * ID on board; vancomycin and zosyn dc'd, now on only IV ceftriaxone. management as per ID * #ESRD * Currently on dialysis via temporary catheter in the chest. * Temporary catheter was placed on 01/22. Nephrology on board. * #Acute on chronic anemia * hb today is up to 8.3 * Iron profile showed iron deficiency anemia. * Stool for occult blood still is pending. * In light of him being on aspirin and Plavix I think it is prudent that we rule out any occult bleed. * GI on board; patient refused EGD * on PO pantoprazole * #Benign essential hypertension: on amlodipine and metoprolol. IV hydralazine prn #Hyperlipidemia: on statin. DVT prophylaxis: SCDs Charges/Coding Visit Charges Inpatient E&M: 86364 Subs Hosp L2
--- NOTE | 2024-01-30 09:55 | PCM.PN.BLA ---
Progress Note Patient seen and examined during dialysis. He is found resting comfortably. He appears to be tolerating dialysis well. I discussed with him that I had found evidence of prior MRSA infection and that his most recent blood culture had shown positivity for Staph epidermidis. This latter result was discussed first with nephrology who then discussed with infectious disease. Has been determined that patient has been sufficiently treated for this and that infectious diseases okay with proceeding with a tunneled line placement later today. I thus asked patient's bedside nursing to remove his temporary hemodialysis catheter following dialysis in preparation for the OR this afternoon. Patient pending tunneled hemodialysis catheter insertion on the right at approximately 1230 this afternoon. Please remain n.p.o.
[2024-01-30] MEDS: Heparin 10,000 UNITS/10 ML Vial 1300 UNITS IV (11:29)
--- NOTE | 2024-01-30 11:39 | CASEMGMT ---
Addendum entered by Jc Hernandez 01/30/24 16:03: Pt recently returned to the floor. RN CM to pt room at this time. Pt RN at bedside. HD schedule provided to the pt at this time. Pt states that he is agreeable with this schedule and denies any further questions or concerns. Original Note: Dr. Gross states that the pt will hopefully be able to DC over the weekend. Danna Ko from [facility] states (through the Portal) that they have received the referral and that they will be able to start the pt on Friday, 02/01 at 1330. Danna provided this RN CM with a tentative schedule for the pt. Scheduled printed and RN CM to pt room at this time. Pt is currently off of the floor as he is getting a tunneled catheter placed. RN CM to follow once the pt returns.
--- NOTE | 2024-01-30 12:05 | PRE.ANES_ITS ---
ASA Classification* ASA Classification ASA Classification: 3 (SEE WRITTEN PRE ANESTHESIA RECORD FOR FULL ASSESSMENT) Assessment & Plan Anesthesia* Anesthesia Assessment Anesthesia Assessment: Discussed sedation and/or anesthesia options, risks, benefits, and alternatives with patient/parents/legal guardian/POA. Questions invited. The patient/parents/legal guardian/POA seems to understand and agrees to proceed with anesthesia plan. Reviewed the physical assessment, medical history, allergy history and patient home medications list prior to surgery/procedure/anesthetic and documented any changes. Performed airway and anesthesia risk assessments. Anesthesia Type Anesthesia Type: MAC (SEE WRITTEN PRE ANESTHESIA RECORD FOR FULL ASSESSMENT) Anesthesia Focused Assessment* Temperature: 98.4 F Pulse Rate: 87 Blood Pressure: 110/74 Respiratory Rate: 16 Pulse Ox: 98 Fraction of Inspired Oxygen (FIO2): 35 Airway Assessment Mouth opens: >3 cm Mallampati Score: II Focused Labs Anesthesia Preop lab: CBC WBC 6.8 K/mm3 (4.4-11.0) 01/30/24 03:45 RBC 3.16 M/mm3 (4.6-6.2) L 01/30/24 03:45 Hgb 8.3 g/dL (13.0-16.5) L 01/30/24 03:45 Hct 26.8 % (40-54) L 01/30/24 03:45 Plt Count 374 K/mm3 (150-450) 01/30/24 03:45 CHEMISTRY Potassium 3.7 mmol/L (3.5-5.1) 01/30/24 03:45 Sodium 139 mmol/L (136-145) 01/30/24 03:45 Magnesium 2.5 mg/dL (1.6-2.6) 01/23/24 01:40 Phosphorus 4.9 mg/dL (2.5-4.9) 01/24/24 03:30 BUN 37 mg/dL (7-18) H 01/30/24 03:45 Creatinine 5.15 mg/dL (0.70-1.30) H 01/30/24 03:45 Glucose 147 mg/dL (74-106) H 01/30/24 03:45 POC Glucose 248 mg/dL (74-106) H 01/26/24 11:13 TSH 1.100 uIU/mL (0.358-3.740) 01/23/24 01:40 COAG PT 13.9 SECONDS (11.7-14.9) 01/22/24 20:30 Pre-Assessment Diagnosis/Proposed Procedure Planned Operative Procedure(s): HEMO DIALYSIS CATH Anesthesia History Anesthesia History - operations clerk: Anesthesia History - operations clerk Hx Hospitalization No 08/01/23 07:35 Any Problems With Anesthesia No 01/30/24 03:57 Cholinesterase deficiency No 01/30/24 03:57 You/Your Family Experience No 01/30/24 03:57 fever (hyperthermia) with Relationship Recent Exposure to Contagious No 01/30/24 03:57 Disease Does patient have nerve No 01/30/24 03:57 stimulator Patient instructed to have device shut off --Does patient have Pacemaker or ICD? When Was Last Pacemaker Check QUESTION #4 FULL TEXT: You/Your Family Experience fever (hyperthermia) with Anesthesia Last Oral Intake Last Oral intake: Last Oral Intake NPO since Meds taken in AM with sips of water? 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 - operations clerk: PONV - operations clerk Female HX of Motion Sickness HX of N/V After Surgery Non-Smoker Duration of Surgery greater than 60 minutes Number of Risk Factors PONV Score Height & Weight Height & Weight: Anesthesia: Height & Weight Height 5 ft 11 in 01/30/24 09:28 Weight: 89.74 kg 01/30/24 11:24 Body Mass Index (BMI) 27.6 01/30/24 11:24 Respiratory Assessment Respiratory Assessment - operations clerk: Respiratory Tract Infection Hx - operations clerk Hx Respiratory Tract Infection No 01/30/24 03:57 STOP Sleep Apnea STOP Sleep Apnea - operations clerk: STOP Sleep Apnea - operations clerk Hx Hypertension Yes 01/24/24 12:51 Hx Sleep Apnea No 01/23/24 01:26 CPAP No 08/01/23 10:17 BIPAP No 05/13/23 10:41 Do you snore loudly (louder Yes 01/23/24 01:26 than talking or can be heard Do you often feel tired/ No 01/23/24 01:26 fatigued/ sleepy during daytime? Has anyone observed you stop No 01/23/24 01:26 breathing during sleep? STOP Results Positive 01/23/24 01:26 QUESTION #5 FULL TEXT : Do you snore loudly (louder than talking or can be heard through closed doors)? Tobacco Use History Tobacco Use History - operations clerk: Tobacco Use History - operations clerk Tobacco Use Non-smoker 05/13/23 10:41 Smoking Status Never smoker 01/23/24 01:26 Hx Tobacco Use No 01/23/24 01:26 Years Smoking Packs Smoked per Day Smoking Cessation Date was within the last 15 years Hx Smoking Cessation Date Hx Smoking Cessation Counseling Hematologic Medial History Hematologic Hx - operations clerk: Hematologic Medical Hx - sales planning analyst Hx of Blood Transfusion No 01/23/24 01:26 Hx of Transfusion in last 3 No 01/23/24 01:26 Months Date of Last Transfusion (if within last 3 months) Ever experience any problems No 01/23/24 01:26 with transfusion(s)? Specify any problems Hx of Preganancy in last 3 N/A 01/23/24 01:26 Months Nurse Filling Out Transfusion KSNELL 01/23/24 01:26 & Questions: Date: 01/23/24 01/23/24 01:26 Time: 01:01/23/24 01:26 Patient unable to answer at this time (ie. confused, unrespo /Reproduction History /Reproductive History - operations clerk: /Reproductive Hx- operations clerk Hx Now No 01/30/24 03:57 Gestational Age (in weeks): EDC: Hx Hx Para Hx Section SAB No 01/30/24 03:57 Active Medications Active Medications: Current Medications Generic Name Dose Route Start Last Admin Trade Name Freq PRN Reason Stop Dose Admin Acetaminophen 650 mg 01/23/24 15:23 01/25/24 20:08 Acetaminophen 325 Mg Tablet PO 650 mg Q4H PRN PRN Administration Pain 1-10 or Fever Amlodipine Besylate 10 mg 01/23/24 10:00 01/29/24 08:35 Amlodipine 10 Mg Tablet PO 10 mg DAILY CHILO Administration Protocol Aspirin 81 mg 01/24/24 08:00 01/29/24 08:36 Aspirin E.C. 81 Mg Tablet PO 81 mg BREAKFAST CHILO Administration Atorvastatin Calcium 20 mg 01/23/24 22:00 01/29/24 20:47 Atorvastatin Calcium 20 Mg Tablet PO 20 mg QHS CHILO Administration Atropine Sulfate 0.5 mg 01/23/24 12:59 Atropine Sulfate 1 Mg/10 Ml Syringe IV UD PRN HR <50 bpm Clopidogrel Bisulfate 75 mg 01/23/24 00:36 01/29/24 08:36 Clopidogrel Bisulfate 75 Mg Tablet PO 75 mg DAILY CHILO Administration Glucagon 1 mg 01/23/24 07:39 Glucagon 1 Mg/Ml Syringe IM X1 PRN Hypoglycemia Protocol Hemodialysis Solution 6 bag 01/30/24 07:00 01/30/24 08:24 Pureflow B 3k Dialysis Soln 1 Bag PF 01/30/24 18:58 5 bag UD CHILO Administration Protocol Heparin Sodium (Porcine) 1,300 units 01/23/24 13:54 01/30/24 11:29 Heparin 10,000 Units/10 Ml Vial IV 1,300 units PRN PRN Administration Dialysis Line Heparin Sodium (Porcine) 5,000 unit 01/26/24 22:00 01/30/24 03:55 Heparin Injection (Vial) 5,000 Unit/Ml Vial SC Not Given TID [facility] Heparin Sodium (Porcine) 1,000 - 3,000 units 01/30/24 06:57 Heparin 10,000 Units/10 Ml Vial IV 01/30/24 18:58 X1 PRN HD catheter closing Hydralazine HCl 10 mg 01/23/24 01:21 01/28/24 00:10 Hydralazine 20 Mg/Ml Vial IV 10 mg Q6H PRN PRN Administration SBP GREATER THAN 160 Protocol Hydroxyzine HCl 25 mg 01/23/24 01:21 Hydroxyzine 50 Mg/Ml Vial IM Q6H PRN PRN ANXIETY Dextrose 250 mls @ 999 mls/hr 01/23/24 01:21 Dextrose 10%-Water IV .Q16M PRN Hypoglycemic Protocol Protocol Ceftriaxone Sodium 2 gm/ 50 mls @ 100 mls/hr 01/29/24 10:00 01/29/24 12:00 Sodium Chloride IV 01/31/24 10:29 Infused Q24 CHILO Infusion Metoprolol Succinate 25 mg 01/23/24 10:00 01/29/24 08:36 Metoprolol(Xl)Succ 25 Mg Tablet PO 25 mg DAILY CHILO Administration Protocol Morphine Sulfate 2 mg 01/23/24 01:21 01/28/24 21:13 Morphine 2 Mg/Ml Syringe IV 2 mg Q4H PRN PRN Administration Pain Score 6-10 Ondansetron HCl 4 mg 01/23/24 01:21 01/27/24 21:13 Ondansetron 4 Mg/2 Ml Vial IV 4 mg Q6H PRN PRN Administration NAUSEA/VOMITING Oxycodone HCl 5 mg 01/23/24 15:23 01/28/24 05:14 Oxycodone 5 Mg Tablet PO 5 mg Q4H PRN PRN Administration Pain Score 6-10 Pantoprazole Sodium 40 mg 01/30/24 10:00 Pantoprazole Sodium 40 Mg Tablet PO BID CHILO Promethazine HCl 25 mg 01/23/24 01:21 Promethazine 25 Mg/Ml Syringe IM Q4H PRN PRN BREAKTHROUGH NAUSEA Sodium Chloride 10 - 40 ml 01/23/24 01:29 01/30/24 11:29 0.9% Saline Lock 10 Ml Syringe IV 20 ml UD PRN Administration SALINE FLUSH Sodium Chloride 500 ml 01/23/24 12:59 0.9% Normal Saline 500 Ml Iv.Soln. IV BOLUS PRN VASO-VAGAL PROTOCOL Sodium Chloride 1,000 ml 01/30/24 07:00 01/30/24 08:24 0.9% Normal Saline 1,000 Ml Iv.Soln. OPERA.SITE 01/30/24 18:58 1,000 ml X1 CHILO Administration Sodium Chloride 200 ml 01/30/24 06:57 0.9% Normal Saline 1,000 Ml Iv.Soln. IV 01/30/24 18:58 X1 PRN to maintain SBP >90mmHg during Dialysis [facility] Medical History Acute kidney injury Hypertension Pre-op testing ESRF (end stage renal failure) Stage 4 chronic kidney disease Diabetes mellitus type 1 Insulin pump titration Presence of insulin pump CKD (chronic kidney disease) Obesity Abscess Charcot foot due to diabetes mellitus Type 1 diabetes mellitus Home Medications ?Medication ?Instructions ?Recorded ?Last Taken ?Type blood sugar diagnostic (FreeStyle #100 ea 10/08/21 Unknown Rx Lite Strips) blood-glucose meter,continuous #1 ea 10/08/21 Unknown Rx (Dexcom G6 Tariff Compiling Clerk) lancing device with lancets kit #100 ea 11/26/21 Unknown Rx ([place] Delica Plus Lancing Device kit) pen needle, diabetic 32 gauge x #150 ea 02/26/22 Unknown Rx (BD Ultra-Fine Carol Pen Needle) alcohol swabs (BD Alcohol Swabs) 1 pad topical .4 times daily #200 05/20/22 Unknown Rx ea furosemide 40 mg tablet 80 mg PO BID 07/30/23 08/01/23 History insulin aspart U-100 100 unit/mL 80 unit (0.8 mL) continuous 08/18/23 Unknown Rx subcutaneous solution (Novolog subcutaneous infusion .continuous U-100 Insulin aspart) #72 mL rosuvastatin 10 mg tablet 10 mg PO DAILY #90 tabs 11/07/23 Unknown Rx amlodipine 10 mg tablet 10 mg PO DAILY #90 tabs 11/17/23 Unknown Rx metoprolol succinate 25 mg 25 mg PO DAILY #30 tabs 11/27/23 Unknown Rx tablet,extended release 24 hr insulin pump cart,automated,BT #30 ea 01/06/24 Unknown Rx blood-glucose sensor (Dexcom G6 #9 ea 01/16/24 Unknown Rx Sensor device) blood-glucose transmitter (Dexcom #1 ea 01/16/24 Unknown Rx G6 Transmitter device) Allergy/AdvReac Type Severity Reaction Status Date / Time No Known Allergies Allergy Verified 01/22/24 20:12 Family History Mother Diabetes Thyroid disorder Grandmother Diabetes Grandfather Diabetes Surgical History History of surgery on lower extremity Social History Smoking Status: Never smoker alcohol intake: never substance use type: does not use Review of Systems (Anesthesia) ROS Narrative System reviewed and no additional complaints, except as documented.
[2024-01-30] MEDS: Ceftriaxone 2 GM in 0.9% Normal Saline (50mL MB+) 50 ML IV (12:18)
[2024-01-30 12:21] LABS: Bedside Glucose 117 mg/dL (74-106)
--- NOTE | 2024-01-30 12:26 | PN.RENAL_ITS ---
Subjective Subjective No new complaints today. Off oxygen. Objective Data Objective Data Vital Signs: Vital Signs Temp Pulse Resp BP Pulse Ox O2 Del Method O2 Flow Rate 98.4 F 87 16 110/74 98 Room Air 2 01/30/24 12:05 01/30/24 12:05 01/30/24 12:05 01/30/24 12:05 01/30/24 12:05 01/30/24 11:24 01/30/24 12:05 FiO2 35 01/30/24 12:05 Oxygen Flow Rate (L/min) 2 Oxygen Delivery Method Room Air Weight: 89.74 kg Body Mass Index (BMI) 27.6 Intake & Output: Intake and Output for Last 24 Hours 01/28/24 01/29/24 01/30/24 23:59 23:59 23:59 Intake Total 210 / 210 680 / 680 0 / 0 Output Total 4370 / 4370 700 / 700 1760 / 1760 Balance -4160 / -4160 -20 / -20 -1760 / -1760 Lab / Micro Data 01/30/24 03:45 01/30/24 03:45 Labs: Laboratory Results - last 24 hr 01/30/24 03:45: WBC 6.8, RBC 3.16 L, Hgb 8.3 L, Hct 26.8 L, MCV 84.8, MCH 26.3 L , MCHC 31.0 L D, RDW Std Deviation 41.1, RDW Coeff of Marcella 13.2, Plt Count 374, MPV 9.0, Immature Gran % (Auto) 0.700, Neut % (Auto) 62.5, Lymph % (Auto) 17.8 L , [place] % (Auto) 12.8 H, Eos % (Auto) 5.2 H, Baso % (Auto) 1.0, Absolute Neuts (auto) 4.2, Absolute Lymphs (auto) 1.21, Nucleated RBC % 0, APTT 28.8, Sodium 139, Potassium 3.7, Chloride 108 H, Carbon Dioxide 25.0, Anion Gap 6, BUN 37 H, Creatinine 5.15 H, Estim Creat Clear Calc 21.83, Est GFR (MDRD) Af Amer 16 L, E st GFR (MDRD) Non-Af 13 L, BUN/Creatinine Ratio 7.2 L, Glucose 147 H, Calcium 9.2 01/30/24 12:03: POC Glucose 117 H Micro: Microbiology 01/26/24 10:00 Blood Culture (Wb) - Right Forearm Bacteria Detection (PCR) - Final Staphylococcus epidermidis 01/26/24 10:00 Blood Culture (Wb) - Right Forearm Blood Culture - Preliminary Staphylococcus epidermidis 01/26/24 15:00 Urine, Clean Catch Urine Culture - Final Culture exhibits no growth. 01/25/24 17:58 Mucosa - Nasopharyngeal Respiratory Panel (PCR) - Final 01/25/24 17:58 Mucosa - Nasopharyngeal Coronavirus COVID-19 PCR - Final Physical Exam Narrative Alert and orient x 3, no apparent distress S1, S2, RRR Lungs clear anteriorly and posteriorly. No wheezes, rhonchi or rales Abdomen soft, nontender No edema Left forearm AV fistula with positive thrill and bruit. Fistula is small. Assessment & Plan Assessment/Plan (1) CKD (chronic kidney disease), stage V: (2) Elevated troponin: (3) Hypertension: QUALIFIERS: Hypertension type: unspecified Qualified Code(s): I10 - Essential (primary) hypertension PLAN: Plan Impression/Plan: The patient is a 43-year-old male with past history of type 1 diabetes mellitus, hypertension, Charcot's foot, hyperlipidemia and chronic kidney disease stage G4. The patient is followed in nephrology office by me. Patient has been prepared for ESRD and had AV fistula placed in July 2023. Patient presented to hospital on 01/23/2024 with chest pain. The patient was diagnosed with NSTEMI. He underwent LHC on 01/23/2024 but did not require intervention. Nephrology is following for ANN on CKD. Acute kidney injury on chronic kidney disease stage G5. Patient likely now has ESRD. Baseline serum creatinines been around 5.00 mg/dL prior to this admission. He is status post AV fistula placement in July 2023. Serum creatinine has increased to 6.20 mg/dL on 01/22/2024. Started on dialysis. Left arm AV fistula radiocephalic is fairly small. Currently has a temporary right IJ nontunneled dialysis catheter. Acute hypoxic respiratory failure. better Seen on dialysis today. See orders. Discussed with surgery and ID service this morning. Tunneled dialysis catheter hopefully today. Will need placement in outpatient dialysis unit.
[2024-01-30] MEDS: Bupivacaine Mpf 0.5% 30 ML VIAL (14:15)
[2024-01-30] MEDS: Heparin 10,000 UNITS/10 ML Vial 10000 UNITS (14:40)
--- NOTE | 2024-01-30 14:50 | OP.PCM_ITS ---
Operative Report (Standard) Operative Information Surgery/Procedure Performed: Ultrasound and fluoroscopic guidance for tunneled hemodialysis catheter placement Surgeon: Lio Stout Date of Procedure: 01/30/24 Procedure Start Time: 14:16 Procedure Stop Time: 14:48 Pre-Operative Diagnosis: Acute kidney injury on chronic kidney disease requiring durable access for hemodialysis Post-Operative Diagnosis: Same Select all DRAINS/GRAFTS/IMPLANTS that apply: Implanted device (14.5 Georgian by 19 cm palindrome precurved hemodialysis catheter) Implanted device details: Reference [id number], lot [id number] Type of Anesthesia: MAC/Supplemental Special Medications: 4 mL of injectable heparin 1000 units/mL Estimated Blood Loss: 10 Specimen collected: No Description of surgery: After appropriate identification in the preoperative holding area the patient was brought to the operating room where they were positioned supine on the operating room table. Preoperative antibiotics were completely administered. Sedation was begun per anesthesia and the patient's right neck was prepped and draped in usual sterile fashion then I confirmed patency of the right internal jugular vein with bedside ultrasound. Formal timeout was conducted to confirm both the patient and the procedure. Procedure was begun with ultrasound-guided access of the right internal jugular vein using a standard 035 guidewire. 2 attempts were required for establishment of access. Fluoroscopy confirmed appropriate position of the wire. At this point I made a measurement from the insertion site to the atrium of approximately 15 cm. Desiring some room for the patient's tunneling/cuff placement, elected to proceed with a 19 cm catheter. The insertion site was then enlarged sharply and bluntly. Measuring back from the proximal insertion site on the catheter, we determined that the tunneling site would need to be at least 7 cm away from the insertion site. Therefore this was measured out on the patient's chest and a counterincision was made at this point after instilling local anesthetic. A gentle curve of the tunneling tract to the insertion site was also instilled with local anesthetic (a total volume of 23 mL quarter percent bupivacaine was used for this procedure). Then the catheter was connected to the tunneling device and was tunneled to the insertion site. Next the insertion site was serially dilated and the peel-away sheath was placed under fluoroscopy. The catheter was fed through the peel-away sheath and once we neared completion another fluoroscopy image was obtained. Functionally, the catheter was tested with aspiration and flush of injectable saline which it did with ease. The insertion site was then closed with a single interrupted 2-0 nylon stitch. Another 2-0 nylon stitch was used to close down the insertion site at the tunneling entrance as a means of creating a cerclage. Lastly, the catheter was secured at the tiedown points on each port with a interrupted 2-0 nylon. Now each catheter lumen was locked with 2 mL heparinized saline (concentration 1000 units/mL) per package specification. Chlorhexidine gel dressing was placed about the catheter. A small OpSite was applied to the insertion site. Patient was then allowed to emerge from sedation and was taken to PACU in stable condition. A chest x-ray was ordered in PACU for review of the catheter placement and to exclude pneumothorax. Surgical Findings: ? Soft tissue induration about prior central line insertion site ? Multiple valves and some minor thrombus material within the lumen of the otherwise patent right internal jugular vein Engineering Supervisor gambling counsellor: No Complications Complications: No Procedures Cardiovascular CF Procedures [id number]: [id number] Insert tunneled cv cath
--- NOTE | 2024-01-30 15:02 | PCM.POST.ANE ---
Anesthesia: Postop Eval I Current Vital Signs Temperature: 97.6 F Pulse Rate: 84 Blood Pressure: 172/90 Respiratory Rate: 16 Pulse Ox: 90 Oxygen Delivery Method: Room Air Assessment Airway patent: Yes Spontaneous unlabored respirations: Yes Mental status: Awake and Calm nausea: No Vomiting: No Anesthesia Complication: No Fluid Hydration Crystalloid volume administer (ml): 400 Total IV fluid infused: 400 Progress Note Anesthesia document: Postop Eval 1 completed: Yes
--- NOTE | 2024-01-30 15:10 | RAD_ITS ---
INDICATION: Status post line placement EXAMINATION/TECHNIQUE: X-RAY - XR Chest 1 View COMPARISON: January 25, 2024 FINDINGS: LINES/DEVICES: There is a right-sided central venous catheter in place terminating within the expected region of the superior vena cava. LUNGS: No consolidation, edema or effusion. No pneumothorax. MEDIASTINUM AND CARDIOVASCULAR STRUCTURES: Cardiac silhouette not enlarged. Central airways and mediastinal contour are unremarkable. BONES AND SOFT TISSUES: Unremarkable. RAD/CXR for Line Placement IMPRESSION: No radiographic evidence of acute cardiopulmonary disease. Electronically Signed: Maday Xiao MD at 15:40 EDT ,
[2024-01-30] MEDS: Clopidogrel Bisulfate 75 MG Tablet PO (15:54)
[2024-01-30] MEDS: Aspirin E.C. 81 MG Tablet PO (15:54)
[2024-01-30] MEDS: Metoprolol(XL)Succ 25 MG Tablet PO (15:54)
[2024-01-30] MEDS: amLODIPine 10 MG Tablet PO (15:54)
[2024-01-30] MEDS: Acetaminophen 325 MG Tablet 650 MG PO (15:59)
[2024-01-30] MEDS: oxyCODONE 5 MG Tablet PO (16:00)
[2024-01-30 16:14] LABS: Bedside Glucose 107 mg/dL (74-106)
--- NOTE | 2024-01-30 16:46 | POSTOPAN2_ITS ---
Anesthesia Postop Eval I Sum Postop Eval Completion status Anesthesia document: Postop Eval 1 completed: Yes Anesthesia Postop Eval I Summary Anesthesia Postop Eval I Summary: Anesthesia Postop Eval I: Assessment Summary Airway patent Yes 01/30/24 15:03 KOSHER DIETARY SERVICE SUPERVISOR.[email or web address] Spontaneous unlabored Yes 01/30/24 15:03 KOSHER DIETARY SERVICE SUPERVISOR.JDEF respirations Mental status Awake,Calm 01/30/24 15:03 KOSHER DIETARY SERVICE SUPERVISOR.JDEF nausea No 01/30/24 15:03 KOSHER DIETARY SERVICE SUPERVISOR.JDEF Vomiting No 01/30/24 15:03 KOSHER DIETARY SERVICE SUPERVISOR.JDEF Anesthesia Postop Eval I: Fluid Summary Crystalloid volume administer 400 01/30/24 15:03 KOSHER DIETARY SERVICE SUPERVISOR.JDEF (ml) Colloids volume administered ( ml) Blood Product volume administered (ml) Total IV fluid infused 400 01/30/24 15:03 KOSHER DIETARY SERVICE SUPERVISOR.JDEF Anesthesia Postop Eval I: Summary Notes Anesthesia Complication No 01/30/24 15:03 KOSHER DIETARY SERVICE SUPERVISOR.JDEF Anesthesia Complication Comment: Post-operative progress note Anesthesia: Postop Eval II Evaluation Mental status: Awake Pain Level: 0 nausea: No Vomiting: No
--- NOTE | 2024-01-30 16:46 | PCM.POSTANE2 ---
Anesthesia Postop Eval I Sum Postop Eval Completion status Anesthesia document: Postop Eval 1 completed: Yes Anesthesia Postop Eval I Summary Anesthesia Postop Eval I Summary: Anesthesia Postop Eval I: Assessment Summary Airway patent Yes 01/30/24 15:03 DUMPING MACHINE OPERATOR.JDEF Spontaneous unlabored Yes 01/30/24 15:03 DUMPING MACHINE OPERATOR.JDEF respirations Mental status Awake,Calm 01/30/24 15:03 DUMPING MACHINE OPERATOR.JDEF nausea No 01/30/24 15:03 DUMPING MACHINE OPERATOR.JDEF Vomiting No 01/30/24 15:03 DUMPING MACHINE OPERATOR.JDEF Anesthesia Postop Eval I: Fluid Summary Crystalloid volume administer 400 01/30/24 15:03 DUMPING MACHINE OPERATOR.JDEF (ml) Colloids volume administered ( ml) Blood Product volume administered (ml) Total IV fluid infused 400 01/30/24 15:03 DUMPING MACHINE OPERATOR.JDEF Anesthesia Postop Eval I: Summary Notes Anesthesia Complication No 01/30/24 15:03 DUMPING MACHINE OPERATOR.JDEF Anesthesia Complication Comment: Post-operative progress note Anesthesia: Postop Eval II Evaluation Mental status: Awake Pain Level: 0 nausea: No Vomiting: No
[2024-01-30] MEDS: Atorvastatin Calcium 20 MG Tablet PO (21:26)
[2024-01-30] MEDS: Heparin Injection (Vial) 5,000 UNIT/ML VIAL 5000 UNIT SC (21:26)
[2024-01-30] MEDS: Pantoprazole Sodium 40 MG Tablet PO (21:26)
[2024-01-31] VITALS: BP 129/78; PULSE 77; RESP 18; TEMP 37; O2SAT 94
[2024-01-31 04:00] VITALS: BP 143/84; PULSE 80; RESP 15; TEMP 36.7; O2SAT 99
[2024-01-31] MEDS: Heparin Injection (Vial) 5,000 UNIT/ML VIAL 5000 UNIT SC (04:59)
[2024-01-31 05:00] LABS: Absolute Lymphocyte Count 1.39 X10^3/uL (0.83-4.51); Absolute Neutrophil Count 5.3 X10^3/uL (2.0-7.7); Basophil# 0.08 X10^3/uL; Eosinophil# 0.37 X10^3/uL; Eosinophils% 4.5 % (0-5); Hematocrit 27.9 % (40-54); Hemoglobin 8.9 g/dL (13.0-16.5); Lymphocyte # 1.39 X10^3/ul (0.83-4.51); Mean Corp Hgb Conc 31.9 g/dL (32-36); Mean Corpuscular Hgb 27.1 pg (27.0-32.0); Mean Corpuscular Volume 84.8 fL (80-94); Mean Platelet Vol. 8.9 fl (6.2-12.0); Monocyte# 1.02 X10^3/uL; Monocyte% 12.4 % (0-10); NRBC Flagged by Analyzer 0 % (0-5); Neutrophil # 5.25 X10^3/uL (2.7-7.7); Platelet Count 388 K/mm3 (150-450); RBC Distribution Width CV 13.3 % (11.6-14.6); RBC Distribution Width SD 41.1 fl (35.1-43.9); Red Blood Count 3.29 M/mm3 (4.6-6.2); White Blood Count 8.2 K/mm3 (4.4-11.0)
[2024-01-31 05:23] LABS: Anion Gap 4 (5-15); BUN 32 mg/dL (7-18); BUN/Creat Ratio 6.8 RATIO (10-20); Calcium,Total 9.4 mg/dL (8.5-10.1); Chloride 110 mmol/L (98-107); Creatinine, Serum 4.69 mg/dL (0.70-1.30); EST Glomerular Filtration Rate 15 mL/min (>60); Est Glom Filt Rate - Afr Amer 18 mL/min (>60); Estimated Creatinine Clearance 22.08 ml/min; Glucose 143 mg/dL (74-106); Potassium 3.9 mmol/L (3.5-5.1); Sodium Level 139 mmol/L (136-145)
[2024-01-31 06:00] VITALS: BP 143/84; PULSE 80; RESP 15; TEMP 36.7; O2SAT 99; BMI 27.5
[2024-01-31 07:15] VITALS: O2SAT 95
[2024-01-31] MEDS: Ceftriaxone 2 GM in 0.9% Normal Saline (50mL MB+) 50 ML IV (08:33)
[2024-01-31] MEDS: Clopidogrel Bisulfate 75 MG Tablet PO (08:36)
[2024-01-31] MEDS: amLODIPine 10 MG Tablet PO (08:36)
[2024-01-31] MEDS: Aspirin E.C. 81 MG Tablet PO (08:36)
[2024-01-31 08:37] VITALS: BP 134/78; PULSE 84
[2024-01-31] MEDS: Metoprolol(XL)Succ 25 MG Tablet PO (08:37)
[2024-01-31] MEDS: Pantoprazole Sodium 40 MG Tablet PO (08:37)
--- NOTE | 2024-01-31 09:19 | PCM.PN.SRG ---
Subjective Subjective Patient denies any issues with the right tunneled IJ dialysis catheter Objective Data Objective Data Vital Signs: Vital Signs Temp Pulse Resp BP Pulse Ox O2 Del Method O2 Flow Rate 98.1 F 84 15 134/78 H 95 Room Air 2 01/31/24 06:00 01/31/24 08:37 01/31/24 06:00 01/31/24 08:37 01/31/24 07:15 01/31/24 07:15 01/30/24 12:05 FiO2 35 01/30/24 12:05 Oxygen Flow Rate (L/min) 2 Oxygen Delivery Method Room Air Weight: 197 lb 5.019 oz Body Mass Index (BMI) 27.5 Intake & Output: Intake and Output for Last 24 Hours 01/29/24 01/30/24 01/31/24 23:59 23:59 23:59 Intake Total 680 / 680 50 / 50 50 / 50 Output Total 700 / 700 1760 / 1760 Balance -20 / -20 -1710 / -1710 50 / 50 Lab / Micro Data 01/31/24 04:50 01/31/24 04:50 Labs: Laboratory Results - last 24 hr 01/30/24 12:03: POC Glucose 117 H 01/30/24 15:29: POC Glucose 107 H 01/31/24 04:50: WBC 8.2, RBC 3.29 L, Hgb 8.9 L, Hct 27.9 L, MCV 84.8, MCH 27.1, MCHC 31.9 L, RDW Std Deviation 41.1, RDW Coeff of Marcella 13.3, Plt Count 388, MPV 8.9, Immature Gran % (Auto) 1.100 H, Neut % (Auto) 64.0, Lymph % (Auto) 17.0 L, Blount % (Auto) 12.4 H, Eos % (Auto) 4.5, Baso % (Auto) 1.0, Absolute Neuts (auto) 5.3, Absolute Lymphs (auto) 1.39, Nucleated RBC % 0, Sodium 139, Potassium 3.9, Chloride 110 H, Carbon Dioxide 25.0, Anion Gap 4 L, BUN 32 H, Creatinine 4.69 H, Estim Creat Clear Calc 22.08, Est GFR (MDRD) Af Amer 18 L, Est GFR (MDRD) Non-Af 15 L, BUN/Creatinine Ratio 6.8 L, Glucose 143 H, Calcium 9.4 Micro: Microbiology 01/31/24 06:55 Stool Stool Occult Blood (JAG) - Final Occult Blood Positive 01/26/24 10:00 Blood Culture (Wb) - Right Forearm Bacteria Detection (PCR) - Final Staphylococcus epidermidis 01/26/24 10:00 Blood Culture (Wb) - Right Forearm Blood Culture - Preliminary Staphylococcus epidermidis 01/26/24 15:00 Urine, Clean Catch Urine Culture - Final Culture exhibits no growth. 01/25/24 17:58 Mucosa - Nasopharyngeal Respiratory Panel (PCR) - Final 01/25/24 17:58 Mucosa - Nasopharyngeal Coronavirus COVID-19 PCR - Final Radiography Diagnostic Testing: Radiology Impression Chest X-Ray 01/30/24 15:10 IMPRESSION: No radiographic evidence of acute cardiopulmonary disease. Electronically Signed: Maday Xiao MD at 15:40 EDT , Physical Exam Narrative Right IJ tunneled dialysis catheter dressed clean dry and intact Const oriented x3 and no apparent distress Assessment & Plan Assessment/Plan (1) Acute kidney injury superimposed on chronic kidney disease: PLAN: Patient is a 43-year-old male with ANN on CKD amidst a host of other pathologies related to a presentation for DKA on 01/23/2024. Patient currently dialyzing through a nontunneled right internal jugular hemodialysis catheter. Patient requires placement of a tunneled hemodialysis catheter because an AV fistula that was created by Dr. Vargas in July 2023 has failed to mature to an optimal size. PLAN: Plan Right IJ tunnel dialysis catheter dressed clean dry and intact. Will sign off call with questions. Encourage patient follow-up with Dr. Valadez for evaluation of previous left forearm fistula. Natividad Borges M.D. Pager: [phone] [facility] [address] [place] [address], [address] [place] [address] Office: [phone]
--- NOTE | 2024-01-31 11:50 | DS.PCM_ITS ---
Providers Date of Admission: 01/23/24 Date of Discharge: 01/31/24 Primary Care Physician: Jovana Primary Care Phys Consultations 01/23/24 01:21 Consult: Cardiology Routine Consulting Provider: Corey Wild Reason for Consult: NSTEMI EMERGENT Consult: No MD Notified: Yes Date Notified: 01/23/24 Time Notified: 08:42 Method of Notification: Verbal Method of Consult:: In-Person Comments:: Dr. Dockery Consult: Nephrology Routine Consulting Provider: Daisy Diaz Reason for Consult: ANN; on CKD; stage IV. EMERGENT Consult: No MD Notified: Yes Date Notified: 01/23/24 Time Notified: 00:31 Method of Notification: Answering Service 01/24/24 06:58 Consult: Director Government / Pulmonary Medicine Routine Consulting Provider: Intensivists/Pulmonary Med Reason for Consult: respiratory failure EMERGENT Consult: No MD Notified: Yes Date Notified: 01/24/24 Time Notified: 06:58 Method of Notification: Text 01/26/24 10:36 Consult: Gastroenterology Routine Consulting Provider: [facility] Reason for Consult: acute on chronic iron deficiency anemia EMERGENT Consult: No MD Notified: Yes Date Notified: 01/26/24 Time Notified: 10:36 Method of Notification: Text 01/28/24 08:52 Consult: Infectious Disease Routine Consulting Provider: Caleb Yin Reason for Consult: Positive blood cultures EMERGENT Consult: No Notified: Yes Date Notified: 01/28/24 Time Notified: 09:08 Method of Notification: Answering Service 01/29/24 12:32 Consult: General Surgery Routine Consulting Provider: Lio Stout Reason for Consult: needs tunneled dialysis catheter EMERGENT Consult: No MD Notified: Yes Date Notified: 01/29/24 Time Notified: 12:32 Method of Notification: Text Reason For Visit: DKA NSTEMI & ANN ON CKD STAGE IV Diagnosis Discharge Diagnosis (1) Acute kidney injury superimposed on chronic kidney disease: Status: Chronic Code(s): N17.9 - Acute kidney failure, unspecified; N18.9 - Chronic kidney disease, unspecified Plan #DKA in a known type 1 diabetic * resolved. * now back on his insulin pump * #Nonstemi * s/p cardiac cath with PCI to LAD which had 70% blockage * 2D echo showed EF of 60% with no regional wall motion abnormalities * on aspirin, plavix, high intensity statin and metoprolol. NOt on JAN inhibitor or ARB due to ESRD * cardiology on board #Acute on chronic hypoxic respiratory failure * resolvws. Now on room air. * May be due to ESRD also as well as heart acute HFpEF. EF was 60% per echo done above * he spiked a fever so was placed on IV vancomycin and zosyn also. Now on IV ceftriaxone per ID * titrate oxygen to maintain sats >90% * breathing treatment with bronchodilators. * pulmonology on board. * #Staph bacteremia * Patient spiked a fever to 102 Fahrenheit. * urinalysis did show 1+ bacteria * Patient was started on IV vancomycin and Zosyn due to this fever. * Blood cultures growing Staph epidermidis. * Urine culture negative. * ID on board; vancomycin and zosyn dc'd, now on only IV ceftriaxone. management as per ID * #ESRD * Currently on dialysis via temporary catheter in the chest. * Temporary catheter was placed on 01/22. Nephrology on board. * #Acute on chronic anemia * hb today is up to 8.3 * Iron profile showed iron deficiency anemia. * Stool for occult blood still is pending. * In light of him being on aspirin and Plavix I think it is prudent that we rule out any occult bleed. * GI on board; patient refused EGD * on PO pantoprazole * #Benign essential hypertension: on amlodipine and metoprolol. IV hydralazine prn #Hyperlipidemia: on statin. DVT prophylaxis: SCDs Medications at Discharge Home Medications blood sugar diagnostic (FreeStyle Lite Strips) #100 ea 10/08/21 blood-glucose meter,continuous (Dexcom G6 Wire Twister) #1 ea 10/08/21 lancing device with lancets kit (Appconomy Delica Plus Lancing Device kit) #100 ea 11/26/21 pen needle, diabetic 32 gauge x 5/32 (BD Ultra-Fine Carol Pen Needle) #150 ea 02/26/22 alcohol swabs (BD Alcohol Swabs) 1 pad topical .4 times daily #200 ea 05/20/22 insulin aspart U-100 100 unit/mL subcutaneous solution (Novolog U-100 Insulin aspart) 80 unit (0.8 mL) continuous subcutaneous infusion .continuous #72 mL 08/18/23 rosuvastatin 10 mg tablet 10 mg PO DAILY #90 tabs 11/07/23 amlodipine 10 mg tablet 10 mg PO DAILY #90 tabs 11/17/23 metoprolol succinate 25 mg tablet,extended release 24 hr 25 mg PO DAILY #30 tabs 11/27/23 insulin pump cart,automated,BT #30 ea 01/06/24 blood-glucose sensor (Dexcom G6 Sensor device) #9 ea 01/16/24 blood-glucose transmitter (Dexcom G6 Transmitter device) #1 ea 01/16/24 aspirin 81 mg tablet,delayed release 81 mg PO BREAKFAST #30 tabs 01/31/24 clopidogrel 75 mg tablet 75 mg PO DAILY #30 tabs 01/31/24 pantoprazole 40 mg tablet,delayed release 40 mg PO BID #30 tabs 01/31/24 Hospital Course Operations None Procedures Dialysis and - (tunneled dialysis catheter insertion) Summary of Care Provided Minutes Spent on Discharge: 55 Hospital Course: Patient is a 43-year-old male with an extensive past medical history as outlined was admitted through the ED on 01/22/2024 with a complaint of pain in his chest and upper back as well as neck and shoulder and also had hyperglycemia. His insulin rate. He had an insulin pump at home and said he noted on the morning of admission that his blood sugar was elevated in the 400s. Gave himself his normal insulin dose through his pump but it did not improve. He also admitted subjective fever and chills as well as polydipsia and clouding of his vision. He also had nausea and vomiting. On admission she was found to have DKA with anion gap of 18 and blood sugar of 491. Troponins were also elevated at 588 and so he was diagnosed with non-STEMI. Creatinine was also elevated at 6.2 and so he was also admitted for ANN on CKD stage IV. He was initially admitted to the ICU and managed for DKA and non-STEMI as well as ANN on CKD. His troponins trended upwards to a peak of 2250. Cardiology was consulted and 2D echo was ordered. Nephrology was consulted on account of the ANN on CKD stage IV. He was placed on insulin drip and hydrated with IV fluids. The DKA resolved with hydration and the insulin drip and was transitioned back onto his insulin pump after his gap closed. 2D echo showed EF of 60% with no regional wall motion abnormalities. He did have cardiac cath which showed 70% blockage in the LAD and he had PCI with drug-eluting stent to the LAD. He was placed on aspirin and Plavix as well as high intensity statin and metoprolol. Hospital course was also complicated by acute on chronic hypoxic respiratory failure with patient requiring BiPAP. This was thought to be due to ESRD as well as acute heart failure. There was concern for pneumonia as well so he was placed on IV antibiotics. Blood cultures were done on account of fever which showed Staph epidermidis. He was initially on vancomycin and Zosyn but this was transitioned to IV ceftriaxone and he completed a course of this per ID. His kidney function did not improve and per nephrology was told that patient had ESRD now. He had a temporary dialysis catheter inserted and he was started on dialysis on 01/23/2024. His respiratory failure resolved and he was weaned down to room air. He had a tunneled dialysis catheter placed by general surgery on 01/30/2024. Of note hospital course was complicated by iron deficiency anemia. GI was consulted and recommended EGD but patient refused as he felt better after he got a unit of blood. Patient was discharged home on 01/31/2024. He is follow-up with his primary care doctor and follow-up with nephrology as well as cardiology. Patient seen and examined prior to discharge. He had no active complaints and had an uneventful night. Review of systems was otherwise negative. Labs and vitals reviewed. Home meds reviewed and reconciled. Physical Exam Const alert, oriented x3, no apparent distress and average body habitus General Appearance: cooperative, comfortable, well kempt and well developed Orientation / Consciousness: awake Exam Limitations: no limitations HEENT normocephalic, head/scalp atraumatic, hearing grossly normal bilaterally and moist oral mucous membranes Mouth: oral and palatal mucosa normal Eyes PERRL, EOMs intact bilaterally and conjunctivae normal Neck no lymphadenopathy, supple and no JVD Neck Narrative: right IJ temporry dialysis catheter. Lymph Lymphatic: no lymphadenopathy noted Resp normal respiratory effort, normal air movement, no retractions, no use of accessory muscles and clear to auscultation bilaterally Resp Narrative: on room air. Cardio regular rate, regular rhythm, S1 normal heart sound, S2 normal heart sound and no murmurs GI normal to inspection, nondistended, normoactive bowel sounds, soft to palpation, non-tender and non-distended Extremity normal to inspection, full ROM, normal capillary refill, no clubbing, cyanosis or edema and no calf tenderness Extremity Narrative: tunneled dialysis catheter in chest General Extremity: no tenderness to palpation of joints or extremities Skin no rashes or lesions noted General Skin Exam: no breakdown Neuro oriented x3, CN's II-XII intact bilaterally, moves all extremities, no focal motor deficits, no sensory deficits noted and deep tendon reflexes 2+ bilaterally Sensorium / Orientation: awake, alert, oriented to person, oriented to place and oriented to time Speech: speech normal Motor Exam: strength 5/5 throughout and general weakness Psych thought process normal, cooperative and affect normal Appearance: appropriate Weight / BMI Weight Weight: 197 lb 5.019 oz Body Mass Index (BMI) 27.5 ABG / Lab / Microbiology Data 01/31/24 04:50 01/31/24 04:50 Laboratory: Laboratory Results - last 24 hr 01/30/24 12:03: POC Glucose 117 H 01/30/24 15:29: POC Glucose 107 H 01/31/24 04:50: WBC 8.2, RBC 3.29 L, Hgb 8.9 L, Hct 27.9 L, MCV 84.8, MCH 27.1, MCHC 31.9 L, RDW Std Deviation 41.1, RDW Coeff of Marcella 13.3, Plt Count 388, MPV 8.9, Immature Gran % (Auto) 1.100 H, Neut % (Auto) 64.0, Lymph % (Auto) 17.0 L, Avery % (Auto) 12.4 H, Eos % (Auto) 4.5, Baso % (Auto) 1.0, Absolute Neuts (auto) 5.3, Absolute Lymphs (auto) 1.39, Nucleated RBC % 0, Sodium 139, Potassium 3.9, Chloride 110 H, Carbon Dioxide 25.0, Anion Gap 4 L, BUN 32 H, Creatinine 4.69 H, Estim Creat Clear Calc 22.08, Est GFR (MDRD) Af Amer 18 L, Est GFR (MDRD) Non-Af 15 L, BUN/Creatinine Ratio 6.8 L, Glucose 143 H, Calcium 9.4 Microbiology: Microbiology 01/26/24 10:00 Blood Culture (Wb) - Right Forearm Bacteria Detection (PCR) - Final Staphylococcus epidermidis 01/26/24 10:00 Blood Culture (Wb) - Right Forearm Blood Culture - Final Staphylococcus epidermidis 01/31/24 06:55 Stool Clostridioides difficile (PCR) - Final 01/31/24 06:55 Stool Stool Occult Blood (JAG) - Final Occult Blood Positive 01/26/24 15:00 Urine, Clean Catch Urine Culture - Final Culture exhibits no growth. 01/25/24 17:58 Mucosa - Nasopharyngeal Respiratory Panel (PCR) - Final 01/25/24 17:58 Mucosa - Nasopharyngeal Coronavirus COVID-19 PCR - Final Radiography Diagnostic Testing: Radiology Impression Chest X-Ray 01/30/24 15:10 IMPRESSION: No radiographic evidence of acute cardiopulmonary disease. Electronically Signed: Maday Xiao MD at 15:40 EDT , D/C Instructions Discharge Diet: Low fat / Low cholesterol Discharge Activity: Return to Normal Activity Weight Bearing Status: Weight bearing as tolerated Call your doctor if you observe: Fever of 101 or Higher, Shortness of breath, Dizziness and Swelling in the ankles Meaningful Use Info Meaningful Use Meaningful Use Diagnoses (Choose all that apply): AMI AMI/Post PCI/Angioplasty Aspirin given w/in 24hrs of arrival?: Yes ASA at discharge?: Yes Antiplatelet Therapy at Discharge:: Yes Statins at discharge?: Yes Jan/ARB at discharge?: No Reason Jan/ARB not ordered:: Worsening renal disease Beta Darvin at discharge?: Yes Done w/ Acute [place] measure.: Yes Documented LVEF (%): 60 Ischemic Stroke Statin Dosing Therapy Reference: STATIN DOSE THERAPY REFERENCE: * Patients > 75 years receive moderate or high dose statin therapy. * Patients 75 years or YOUNGER should receive HIGH intensity statin dose unless contraindicated. You will be required to document reason for non-treatment if statin daily dose does not meet guidelines. HIGH DOSE STATIN THERAPY DAILY Atorvastatin > than or = to 40 mg Rosuvastatin > than or = to 20 mg Amlodipine + Atorvastatin > than or = to 2.5/40 mg Ezetimibe + Simvastatin 10/80 mg Simvastatin 80mg Discharge Plan Admission Admit Date/Time: 01/23/24 00:26 Primary Reason for Your Visit: nonstemi, DKA Attending Provider: Nelly Gross Primary Care Provider: Care Physician,No Primary Consulting Providers: Venkata Vargas; Daisy Diaz; Vince Ghotra; Hussein Schwartz; Steve Napoles; Jordy Garcia; Aris Argueta; Rodolfo Dockery; Lio Cross; Wilfredo Andrade; Micky Roberts; Romero Paula INVESTIGATION OFFICER; Lorraine Browne NP; Virgen Perea; Garrison Joaquin; Caleb Yin; Lio Stout Instructions Patient Instructions: Heart Attack Dc, Ketoacidosis Ch, Heart Attack Meds, Heart Attack Questions Discharge Orders/Prescriptions Prescriptions: New clopidogrel 75 mg Tablet 75 mg PO DAILY Qty: 30 2RF aspirin 81 mg Tablet,Delayed Release (Dr/Ec) 81 mg PO BREAKFAST Qty: 30 2RF pantoprazole 40 mg Tablet,Delayed Release (Dr/Ec) 40 mg PO BID Qty: 30 2RF Continued (DME) FreeStyle Lite Strips Strip See Rx Instructions .Route Qty: 100 6RF Rx Instructions: 3x/day (DME) Dexcom G6 Wire Twister Misc See Rx Instructions .Route Qty: 1 0RF Rx Instructions: As directed (DME) lancing device with lancets [Appconomy Delica Plus Lanc Dev] Kit See Rx Instructions .Route Qty: 100 1RF Rx Instructions: 4x/day (DME) pen needle, diabetic [BD Ultra-Fine Carol Pen Needle] 32 gauge x 5/32 needle See Rx Instructions .ROUTE .MEDSUPPLY Qty: 150 5RF Rx Instructions: 4 times daily alcohol swabs [BD Alcohol Swabs] Pads, Medicated 1 pad TOPICAL .4 times daily Qty: 200 5RF rosuvastatin 10 mg tablet 10 mg PO DAILY Qty: 90 1RF amlodipine 10 mg tablet 10 mg PO DAILY Qty: 90 1RF metoprolol succinate 25 mg tablet extended release 24 hr 25 mg PO DAILY Qty: 30 5RF (DME) insulin pump cart,automated,BT Cartridge See Rx Instructions .Route Qty: 30 1RF Rx Instructions: 1 pod q 72 hours (DME) Dexcom G6 Sensor Device See Rx Instructions .Route Qty: 9 1RF Rx Instructions: 1 sensor q 10 days (DME) Dexcom G6 Transmitter Device See Rx Instructions .Route Qty: 1 1RF Rx Instructions: 1 q 90 days Discontinued furosemide 40 mg tablet 80 mg PO BID No Action insulin aspart U-100 [Novolog U-100 Insulin aspart] 100 unit/mL solution 80 unit continuous subcutaneous infusion .continuous Qty: 72 1RF Referrals / Follow Up: Jordy Garcia MD [Med Staff - Active Staff] - Within 2 Weeks Barrett Morris MD [Med Staff - Active Staff] - Cecilio Morris MD [Med Staff - Active Staff] - Within 2 Weeks (see to establish PCP care) Daisy Diaz MD [Med Staff - Consulting] - Within 1 Week Care Physician,No Primary [Primary Care Provider] - Disposition Disposition (needs filled in before D/C Order can be placed): Home, Self Care Charges/Coding Visit Charges Inpatient E&M: 72675 Disch Hosp >30min
== END 2024-01-31 13:22 | disposition home or self-care (01) | DRG 951 ==
LOC: ED 23:54 → ICU 01-23 01:43
PROVIDERS: Emergency Medicine; Internal Medicine Interventional Cardiology; Internal Medicine Nephrology; Nurse Practitioner Adult Health; Surgery; Admitting Provider Internal Medicine; Emergency Provider Emergency Medicine; Visit Provider Student in an Organized Health Care Education/Training Program
PROC: 027134Z Dilation of Coronary Artery, Two Arteries with Drug-eluting Intraluminal Device, Percutaneous Approach (ICD-10-PCS; principal; 2024-01-30 12:15)
DX: E10.10 Type 1 diabetes mellitus with ketoacidosis without coma (principal); I50.31 Acute diastolic (congestive) heart failure; I21.4 Non-ST elevation (NSTEMI) myocardial infarction; N18.6 End stage renal disease; I12.0 Hypertensive chronic kidney disease with stage 5 chronic kidney disease or end stage renal disease; E10.22 Type 1 diabetes mellitus with diabetic chronic kidney disease; D50.9 Iron deficiency anemia, unspecified; E66.9 Obesity, unspecified; J96.01 Acute respiratory failure with hypoxia; D62 Acute posthemorrhagic anemia; N17.9 Acute kidney failure, unspecified; J96.21 Acute and chronic respiratory failure with hypoxia; I50.9 Heart failure, unspecified; Z79.4 Long term (current) use of insulin; E78.5 Hyperlipidemia, unspecified; I25.10 Atherosclerotic heart disease of native coronary artery without angina pectoris; I25.2 Old myocardial infarction; Z99.2 Dependence on renal dialysis; F41.9 Anxiety disorder, unspecified; E66.3 Overweight; R79.89 Other specified abnormal findings of blood chemistry; Z79.02 Long term (current) use of antithrombotics/antiplatelets; Z68.29 Body mass index [BMI] 29.0-29.9, adult; Z79.82 Long term (current) use of aspirin; Z95.5 Presence of coronary angioplasty implant and graft; B95.5 Unspecified streptococcus as the cause of diseases classified elsewhere; B95.8 Unspecified staphylococcus as the cause of diseases classified elsewhere
CPT/HCPCS: 36600; 71045; 71046; 77001; 80048; 80053; 80061; 80202; 80307; 81001; 82009; 82274; 82607; 82652; 82728; 82746; 82803; 82962; 83036; 83540; 83550; 83735; 83880; 84100; 84443; 84484; 85025; 85027; 85347; 85379; 85610; 85730; 86850; 86900; 86901; 86920; 86922; 87040; 87086; 87149; 87186; 87340; 87493; 87633; 87635; 90937; 92928; 93005; 93306; 93454; 94002; 94660; 94762; 97162; 97530; 97802; 99152; 99153; 99285; J7030; J7040; J7050; P9016; Q9967; A4216; C1725; C1750; C1769; C1874; C1887; C1894; C9600; G0257; J0696; J1940; J2405; J2916; J7799

== ENCOUNTER → 2024-03-16 | Outpatient (CLI) | payer MEDICAID, SELFPAY ==
--- NOTE | 2024-03-16 12:42 | ART_ITS ---
Reason For Study: Decreased pedal pulses Procedure A bilateral lower extremity continuous wave Doppler with analog waveform analysis,segmental pressures,and ankle brachial indexes without exercise. Left Segmental Pressures Left posterior tibial artery = >254mmHg. Left dorsalis pedis artery = >254mmHg. Left digit = 134 mmHg. The left dorsalis pedis waveforms are triphasic. The left posterior tibial artery waveforms are triphasic. Right Segmental Pressures Right brachial= 174mmHg. Right posterior tibial artery = >254mmHg. Right dorsalis pedis artery = >254mmHg. Right digit = 132 mmHg. The right dorsalis pedis waveforms are triphasic. The right posterior tibial artery waveforms are triphasic. Indices The right ankle brachial index by the dorsalis pedis is NC. The right ankle brachial index by the posterior tibial artery is NC. The right digital-brachial index is 0.76. The left ankle brachial index by the dorsalis pedis is NC. The left ankle brachial index by the posterior tibial artery is NC. The left digital-brachial index is 0.77. VL/Lower Ext Art Exam w/o Exercis Interpretation Summary Right ANDREW not able to be obtained due to non-compressible vessels. TBI and Dopp ler/PVR waveforms of the right leg normal at rest. Left ANDREW not able to be ontained due to non-compressible vessels. TBI and Doppl er/PVR waveforms of the left leg normal at rest. Ordering Physician: Virgen Perea Performed By: Lara Yanez RVT and Student
--- NOTE | 2024-03-16 12:43 | VDUE_ITS ---
Reason For Study: Pre Op Right Arm Left Arm RT Brachial A at mid bicep measures LT Brachial A at mid bicep measures 0.45x0.44 0.38x0.39 cm with a velocity of 59.8 cm/s. cm with a velocity of 193.2 cm/s. RT Radial A mid forearm measures 0.17x0.20 RT Radial A mid forearm measures 0.25x0.25 cm cm with a velocity of 87.5 cm/s. with a velocity of 235.0 cm/s. 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 0.16x0.18 cm. Cephalic Vein at distal forearm measures Cephalic Vein at mid forearm measures 0.52x0.58 cm. 0.22x0.28 cm. Cephalic Vein at mid forearm measures Cephalic Vein proximal forearm measures 0.36x0.36 cm. 0.27x0.28 cm. Cephalic Vein proximal forearm measures Cephalic Vein distal upper arm measures 0.38x0.39 cm. 0.42x0.44 cm. Cephalic Vein distal upper arm measures Cephalic Vein at mid upper arm measures 0.22x0.22 cm. 0.33x0.31 cm. Cephalic Vein at mid upper arm measures Cephalic Vein at proximal upper arm measures 0.21x0.24 cm. 0.32x0.35 cm. Cephalic Vein at proximal upper arm measures Proximal Basilic vein measures 0.49x0.50 cm. 0.23x0.26 cm. Mid Basilic vein measures 0.44x0.40 cm. Proximal Basilic vein measures 0.60x0.61 cm. Distal Basilic vein measures 0.49x0.49 cm. Mid Basilic vein measures 0.47x0.49 cm. Distal Basilic vein measures 0.42x0.41 cm. VL/Dialysis Vein Map PRE-OP BILAT Interpretation Summary Bilateral upper extremity veins patent with measurements above. Right upper extremity arteries patent with normal waveforms and measurements ab ove. Left upper extremity arteries patent with low resistance waveforms, measurement s above. Ordering Physician: Daisy Diaz Performed By: Lara Yanez RVT and Student ???
== END | disposition home or self-care (01) ==
PROVIDERS: Referring Provider Internal Medicine Nephrology; Visit Provider Internal Medicine Nephrology
DX: N18.6 End stage renal disease (principal)
CPT/HCPCS: 93923; 93985

== ENCOUNTER 2024-04-20 10:22 | Emergency (ER) | payer MEDICAID, SELFPAY ==
[2024-04-20 10:23] VITALS: BP 168/88; PULSE 96; RESP 16; TEMP 36.5; O2SAT 100; BMI 29.3
--- NOTE | 2024-04-20 10:38 | EX.ED.DYSGE1 ---
HPI History of Present Illness Chief Complaint: Hypoglycemia Detail of Chief Complaint: Hypoglycemic unresponsive episode Informant: patient Narrative Narrative: Patient presents to the emergency department via EMS from home. Apparently patient's found him unresponsive this morning and called EMS. On EMS arrival he was noted to be hypoglycemic with a blood sugar of 40. He was given glucose and brought to the ER for evaluation. Patient's mentation normalized after glucose. Patient does have a pump and reader. He he notes that he had a high reading last night and thinks the pump switched to manual mode where it bypasses the reader and he gets 2 units of insulin per hour. He is only able to change it if he has his phone with him. Clinically he feels well currently. He has not been ill. Patient with history of coronary artery disease, type 1 diabetes, history of CHF, history of chronic renal failure and on dialysis. [facility] Medical History (Updated 04/20/24 @ 12:[address] Kristi Murillo, ) ESRF (end stage renal failure) Hypertension DM type 1 (diabetes mellitus, type 1) Acute non-ST elevation myocardial infarction (NSTEMI) CKD (chronic kidney disease), stage V Congestive heart failure of unknown etiology Overweight (BMI 25.0-29.9) NSTEMI, initial episode of care Acute kidney injury superimposed on chronic kidney disease Elevated troponin DKA (diabetic ketoacidoses) Acute kidney injury Pre-op testing Stage 4 chronic kidney disease Diabetes mellitus type 1 Insulin pump titration Presence of insulin pump CKD (chronic kidney disease) Obesity Abscess Charcot foot due to diabetes mellitus Type 1 diabetes mellitus Home Medications ?Medication ?Instructions ?Recorded ?Last Taken ?Type blood sugar diagnostic (FreeStyle #100 ea 10/08/21 Unknown Rx Lite Strips) lancing device with lancets kit #100 ea 11/26/21 Unknown Rx (OneTouch Delica Plus Lancing Device kit) pen needle, diabetic 32 gauge x #150 ea 02/26/22 Unknown Rx (BD Ultra-Fine Carol Pen Needle) alcohol swabs (BD Alcohol Swabs) 1 pad topical .4 times daily #200 05/20/22 Unknown Rx ea pantoprazole 40 mg tablet,delayed 40 mg PO BID #30 tabs 01/31/24 Unknown Rx release amlodipine 5 mg tablet 5 mg PO DAILY #90 tabs 02/25/24 Unknown Rx aspirin 81 mg tablet,delayed 81 mg PO BREAKFAST #90 tabs 02/25/24 Unknown Rx release blood-glucose transmitter (Dexcom #1 ea 02/25/24 Unknown Rx G6 Transmitter device) clopidogrel 75 mg tablet 75 mg PO DAILY #90 tabs 02/25/24 Unknown Rx insulin aspart U-100 100 unit/mL 80 unit (0.8 mL) continuous 02/25/24 Unknown Rx subcutaneous solution (Novolog subcutaneous infusion .continuous U-100 Insulin aspart) #72 mL metoprolol succinate 25 mg 25 mg PO DAILY #90 tabs 02/25/24 Unknown Rx tablet,extended release 24 hr rosuvastatin 10 mg tablet 10 mg PO DAILY #90 tabs 02/25/24 Unknown Rx insulin glargine 100 unit/mL (3 20 unit (0.2 mL) subcut QAM #15 mL 03/30/24 Unknown Rx mL) subcutaneous pen (Lantus Solostar U-100 Insulin) insulin syringe-needle U-100 0.3 #100 ea 03/30/24 Unknown Rx mL 31 gauge x 5/16 (BD Insulin Syringe Ultra-Fine) pen needle, diabetic 32 gauge x #50 ea 03/30/24 Unknown Rx 5/32 (BD Ultra-Fine Carol Pen Needle) blood-glucose meter,continuous #1 ea 04/01/24 Unknown Rx (Dexcom G6 Tearer) blood-glucose sensor (Dexcom G6 #9 ea 04/01/24 Unknown Rx Sensor device) insulin pump cart,auto,BT,G6/7 #30 ea 04/01/24 Unknown Rx (Omnipod 5 G6-G7 Pods (Gen 5) subcutaneous cartridge) Allergy/AdvReac Type Severity Reaction Status Date / Time No Known Allergies Allergy Verified 04/20/24 10:29 Family History Mother Diabetes Thyroid disorder Grandmother Diabetes Grandfather Diabetes Surgical History History of coronary artery stent placement History of surgery on lower extremity Social History Smoking Status: Never smoker alcohol intake: never substance use type: does not use ROS ROS ED ROS Narrative Hypoglycemia Review of Systems ROS Unobtainable: other Constitutional Constitutional ED: Reports lethargy; Denies chills, fever(s), sweats or weight loss Eyes Eyes: Denies blurry vision, change in vision or diplopia ENT ENT ED: Denies rhinorrhea or sore throat Cardiovascular Cardiovascular: Denies chest pain, orthopnea or racing heartbeat Respiratory/Chest Respiratory/Chest: Denies cough, dyspnea, dyspnea on exertion, orthopnea or sputum Gastrointestinal Gastrointestinal: Denies abdominal pain, diarrhea, nausea or vomiting Genitourinary Genitourinary ED: Denies dysuria, hematuria or urinary frequency Musculoskeletal Musculoskeletal: Denies arthralgias, back pain, myalgias or neck pain Integumentary Denies abscess, Abrasions or rash Neurologic Neurologic: Reports other Details: Mental status change/unresponsive episode ; Denies headache(s) or weakness Psychiatric Psychiatric: Denies anxiety, depression or suicidal thoughts Endocrine Endocrinology: Denies polydipsia, polyphagia or polyuria Hematologic/Lymphatic Hematologic/Lymphatic: Denies easy bleeding, easy bruising or lymphadenopathy Allergic/Immunologic Allergic/Immunologic ED: Denies mouth swelling, tongue swelling or urticaria EXAM Physical Exam Const Vital Signs: 04/20/24 10:23 04/20/24 10:30 Temperature 97.7 F L Temperature Source Oral Pulse Rate 96 Respiratory Rate 16 Respiratory Effort Normal Respiratory Pattern Normal Blood Pressure 168/88 H Blood Pressure Mean 114 Pulse Ox 100 Oxygen Delivery Method Room Air Positive well nourished and well developed General Appearance ED: well developed and NAD HEENT Reports TM's clear and moist mucous membranes normocephalic and atraumatic; Negative for trauma or tenderness Tympanic Membrane ED: Yes TM's clear Eyes PERRL and EOMs intact bilaterally General Eye ED: Negative for pale conjunctiva or scleral icterus Neck no lymphadenopathy, supple and no JVD General: Negative for tenderness Chest Wall inspection of chest normal and palpation of chest normal Chest: Negative for tenderness Resp normal respiratory effort and clear to auscultation bilaterally Effort and Inspection: Negative for respiratory distress or pain with movement Auscultation: Negative for rhonchi, wheezes or diminished lung sounds Cardio regular rate, regular rhythm, S1 normal heart sound, S2 normal heart sound and no murmurs Peripheral Pulses: pulses 2+ throughout GI normal to inspection, nondistended, normoactive bowel sounds, soft to palpation, non-tender, non-distended and no masses Back/Spine no CVA tenderness and no thoracic nor lumbar tenderness Extremity normal to inspection General Extremety ED: Negative for edema General Extremity: Negative for edema Neuro oriented x3, CN's II-XII intact bilaterally, no sensory deficits noted and gait normal Sensorium / Orientation: awake, alert, oriented to person, oriented to place and oriented to time Motor Exam: strength 5/5 throughout and strength abnormal Psych mental status grossly normal Skin no rashes or lesions noted and no wounds MDM MDM MDM Narrative Medical decision making narrative: Patient presents with hypoglycemic episode via EMS. Patient's phone is being brought to him by his son who is about 10 minutes out. We will give patient a meal tray with some protein. We will monitor his blood sugars. Patient was brought his cell phone where he was able to manage his reader and his pump. He switched it back to automatic mode where the reader reads the blood sugar and adjusts his insulin pump accordingly. Patient believes that he slept through his alarm last night that alarmed high blood sugars where he typically will give himself a bolus and then switch back to automatic mode and if he does not do that typically he will be given 2.5 units hourly and he believes that is why his blood sugar dropped this morning. Clinically he feels well. He was observed here and his blood sugars maintained. He will be discharged to home and advised to follow-up with his casing crew pusher as needed. Lab Data Labs: Laboratory Results - last 24 hr 04/20/24 11:00 POC Glucose 188 H Discharge Plan Triage Chief Complaint: Hypoglycemia ED Provider: Kristi Murillo Dx/Rx/DC Orders Clinical Impression: Hypoglycemia Instructions: Hypoglycemia (Low Blood Sugar), ED Diabetic Insulin Reaction Prescriptions: No Action (DME) FreeStyle Lite Strips Strip See Rx Instructions .Route Qty: 100 6RF Rx Instructions: 3x/day clopidogrel 75 mg tablet 75 mg PO DAILY Qty: 90 3RF metoprolol succinate 25 mg tablet extended release 24 hr 25 mg PO DAILY Qty: 90 3RF amlodipine 5 mg tablet 5 mg PO DAILY Qty: 90 3RF aspirin 81 mg tablet,delayed release (DR/EC) 81 mg PO BREAKFAST Qty: 90 3RF (DME) Dexcom G6 Transmitter Device See Rx Instructions .Route Qty: 1 1RF Rx Instructions: 1 q 90 days insulin aspart U-100 [Novolog U-100 Insulin aspart] 100 unit/mL solution 80 unit continuous subcutaneous infusion .continuous Qty: 72 1RF rosuvastatin 10 mg tablet 10 mg PO DAILY Qty: 90 1RF pantoprazole 40 mg Tablet,Delayed Release (Dr/Ec) 40 mg PO BID Qty: 30 2RF (DME) lancing device with lancets [OneTouch Delica Plus Lanc Dev] Kit See Rx Instructions .Route Qty: 100 1RF Rx Instructions: 4x/day (DME) pen needle, diabetic [BD Ultra-Fine Carol Pen Needle] 32 gauge x 5/32 needle See Rx Instructions .ROUTE .MEDSUPPLY Qty: 150 5RF Rx Instructions: 4 times daily alcohol swabs [BD Alcohol Swabs] Pads, Medicated 1 pad TOPICAL .4 times daily Qty: 200 5RF insulin glargine [Lantus Solostar U-100 Insulin] 100 unit/mL (3 mL) insulin pen 20 unit subcut QAM Qty: 15 0RF (DME) pen needle, diabetic [BD Ultra-Fine Carol Pen Needle] 32 gauge x 5/32 needle See Rx Instructions .ROUTE .MEDSUPPLY Qty: 50 0RF Rx Instructions: daily (DME) insulin syringe-needle U-100 [BD Insulin Syringe Ultra-Fine] 0.3 mL 31 gauge x 5/16 syringe See Rx Instructions .Route Qty: 100 1RF Rx Instructions: tid (DME) Dexcom G6 Tearer Misc See Rx Instructions .Route Qty: 1 0RF Rx Instructions: As directed (DME) Dexcom G6 Sensor Device See Rx Instructions .Route Qty: 9 1RF Rx Instructions: 1 sensor q 10 days (DME) Omnipod 5 G6-G7 Pods (Gen 5) Cartridge See Rx Instructions .Route Qty: 30 1RF Rx Instructions: change every 3 days Primary Care Provider: Kristal Luke Referrals: Kristal Luke MD [Primary Care Provider] - As Needed Activity Restrictions/Additional Instructions: Follow-up with your casing crew pusher if concerns about your pump or current blood sugar treatment. Print Language: Armenian Disposition Disposition: Home, Self Care
[2024-04-20 11:19] LABS: Bedside Glucose 188 mg/dL (74-106)
[2024-04-20 12:23] VITALS: BP 164/74; PULSE 89; RESP 16; TEMP 36.6; O2SAT 97
[2024-04-21 15:40] LABS: Bedside Glucose 112 mg/dL (74-106)
== END 2024-04-20 12:38 | disposition home or self-care (01) ==
PROVIDERS: Emergency Provider Emergency Medicine; PCP Internal Medicine; Visit Provider Emergency Medicine
DX: E10.649 Type 1 diabetes mellitus with hypoglycemia without coma (principal); I13.2 Hypertensive heart and chronic kidney disease with heart failure and with stage 5 chronic kidney disease, or end stage renal disease; N18.6 End stage renal disease; I50.9 Heart failure, unspecified; E10.22 Type 1 diabetes mellitus with diabetic chronic kidney disease; I25.10 Atherosclerotic heart disease of native coronary artery without angina pectoris; I25.2 Old myocardial infarction; Z96.41 Presence of insulin pump (external) (internal); Z95.5 Presence of coronary angioplasty implant and graft
CPT/HCPCS: 82962; 99284

== ENCOUNTER → 2024-06-10 | Outpatient (CLI) | payer MEDICAID, SELFPAY ==
--- NOTE | 2024-06-10 13:02 | AVDS_ITS ---
Reason For Study Reason For Study: Radiocephalic AVF LEFT Inflow, 44.1/19.5 cm/s. Inflow, 8.1 ml/min. Anastamosis, 597.5/328.6 cm/s. Anastamosis, 740.3 ml/min. Prox Cephalic AVF, 30.2/14.5 cm/s. Prox Cephalic AVF, 109.4 ml/min. Mid Cephalic AVF, 35.4/14.5 cm/s. Mid Cephalic AVF, 79.6 ml/min. Dist Cephalic AVF, 31.9/11.9 cm/s. Dist Cephalic AVF, 73.1 ml/min. Outflow, no flow visualized. Multiple branches noted along fistula in mid forearm. VL/AV Fistula/Dialysis Graft Scan Interpretation Summary Left radiocephalic fistula with stenosis at proximal anastomosis, multiple stea ling branches, and inadequate flow volume/diameter Ordering Physician: Thalia Lea Referring Physician: Kristal Luke MD Performed By: Wade Juarez RVT and Student
== END | disposition home or self-care (01) ==
LOC: CVS 12:56
PROVIDERS: PCP Internal Medicine; Referring Provider Physician Assistant; Visit Provider Physician Assistant
DX: N18.6 End stage renal disease (principal); I77.0 Arteriovenous fistula, acquired
CPT/HCPCS: 93990

== ENCOUNTER 2024-07-07 06:52 | Day surgery (SDC) | payer MEDICAID, SELFPAY ==
[2024-06-30 08:01] VITALS: BMI 28.5
[2024-07-07 07:02] LABS: Hematocrit 29.6 % (40-54); Hemoglobin 10.2 g/dL (13.0-16.5); Mean Corp Hgb Conc 34.5 g/dL (32-36); Mean Corpuscular Hgb 31.1 pg (27.0-32.0); Mean Corpuscular Volume 90.2 fL (80-94); Platelet Count 273 K/mm3 (150-450); RBC Distribution Width CV 13.7 % (11.6-14.6); RBC Distribution Width SD 44.8 fl (35.1-43.9); Red Blood Count 3.28 M/mm3 (4.6-6.2); White Blood Count 7.9 K/mm3 (4.4-11.0)
[2024-07-07 07:29] LABS: Anion Gap 14 (5-15); BUN 43 mg/dL (4-19); BUN/Creat Ratio 7.5 RATIO (10-20); Calcium,Total 9.1 mg/dL (7.6-11.0); Carbon Dioxide 20.5 mmol/L (21.0-32.0); Chloride 99 mmol/L (98-108); Creatinine, Serum 5.67 mg/dL (0.70-1.20); EST Glomerular Filtration Rate 12 (>60); Estimated Creatinine Clearance 19.98 ml/min (50-250); Glucose 209 mg/dL (70-99); Potassium 4.3 mmol/L (3.3-5.1); Sodium Level 134 mmol/L (133-145)
--- NOTE | 2024-07-07 18:54 | OP.PCM_ITS ---
Operative Report (Standard) Operative Information Date of Procedure: 07/07/24 Pre-Operative Diagnosis: fistula malfunction Post-Operative Diagnosis: same Surgery/Procedure Performed: fistulagram, IVUS file machine operator: No Type of Anesthesia: Local and Sedation,Conscious Procedure Start Time: 08:30 Procedure Stop Time: :30 Select all DRAINS/GRAFTS/IMPLANTS that apply: None Estimated Blood Loss: 2 Specimen collected: No Description of surgery: HPI: Patient is a 43-year-old male with a previous left radiocephalic fistula creation which had been attempted to use however they have been unable to access. He had a duplex which revealed proximal stenosis and low flow volumes throughout. He presents now for fistulogram. Description of procedure: Upon obtaining form consent and verification correct patient procedure and site patient taken to the Digital Field Service Technician he was positioned prepped and draped in usual sterile fashion. Timeouts performed consultation ministered with Versed and fentanyl. Skin overlying the fistula in the distal forearm was anesthetized with 1% lidocaine the vessel accessed with ultrasound guidance with a micropuncture needle wire. This exchanged for a 7 Latvian fistula sheath through which injection subtraction fistulogram was performed with reflux back into the arterial anastomosis as well as sequential imaging of the remainder of the fistula in the outflow to the atrial caval junction. This revealed significant collateral stealing vessels in the proximal 5 to 10 cm there were diverting flow from the main outflow cephalic vein and a very small caliber cephalic vein fistula. Otherwise the outflow was via the deep system likely from a collateral antecubital at the antecubital crease with patent brachial, axillary, subclavian, innominate veins and SVC. In order to further evaluate the proximal segment of the fistula a Bentson wire and angled catheter were advanced and the catheter position at the arterial anastomosis. Further subtraction angiography was performed which revealed irregularity in the small caliber lumen just beyond the anastomosis. It was unclear if this was sufficient degree of stenosis to warrant treatment so a command 14 wire was advanced traversing anastomosis into the radial artery and intravascular ultrasound probe was advanced into the radial artery. Recorded pullback was performed of the radial artery and the proximal portion of the cephalic fistula. This revealed approximately 50% stenosis which was focal in nature however the lumen caliber at this location was approximately 4 mm. It was felt that the more significant problem with fistula maturation was the large stealing branches and no intervention was performed. Pursestring suture was placed at the access site and the sheath withdrawn followed by 5 minutes pain and pressure with satisfactory stasis noted. The patient was then taken to the recovery with plan discharged home. Surgical Findings: see above Complications Complications: No
== END 2024-07-07 10:16 | disposition home or self-care (01) ==
PROVIDERS: PCP Internal Medicine; Referring Provider Surgery Trauma Surgery; Visit Provider Surgery Trauma Surgery
DX: T82.858A Stenosis of other vascular prosthetic devices, implants and grafts, initial encounter (principal); N18.6 End stage renal disease; I12.0 Hypertensive chronic kidney disease with stage 5 chronic kidney disease or end stage renal disease; E10.22 Type 1 diabetes mellitus with diabetic chronic kidney disease; Z79.4 Long term (current) use of insulin; X58.XXXA Exposure to other specified factors, initial encounter; I25.2 Old myocardial infarction; Z95.5 Presence of coronary angioplasty implant and graft; Z99.2 Dependence on renal dialysis; Z96.41 Presence of insulin pump (external) (internal); Z79.02 Long term (current) use of antithrombotics/antiplatelets; Z79.82 Long term (current) use of aspirin; Z79.899 Other long term (current) drug therapy
CPT/HCPCS: 36415; 36901; 37252; 37253; 76937; 80048; 85027; 99152; 99153; C1753; C1769; Q9967

== ENCOUNTER 2024-07-20 12:48 | Day surgery (SDC) | payer MEDICAID, SELFPAY ==
--- NOTE | 2024-07-16 14:58 | PAT.ANESEVAL ---
Pre-Assessment Diagnosis/Proposed Procedure Planned Operative Procedure(s): (L) left Fistula Arteriovenous Ligation Anesthesia History Anesthesia History - clinical pharmacy technician: Anesthesia History - clinical pharmacy technician Hx Hospitalization Yes: 12/202307/16/24 14:53 Any Problems With Anesthesia No 07/16/24 14:53 Cholinesterase deficiency No 07/16/24 14:53 You/Your Family Experience No 07/16/24 14:53 fever (hyperthermia) with Relationship Recent Exposure to Contagious No 06/30/24 15:56 Disease Does patient have nerve No 07/16/24 14:53 stimulator Patient instructed to have device shut off --Does patient have Pacemaker or ICD? When Was Last Pacemaker Check QUESTION #4 FULL TEXT: You/Your Family Experience fever (hyperthermia) with Anesthesia Last Oral Intake Last Oral intake: Last Oral Intake NPO since Meds taken in AM with sips of water? 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 - clinical pharmacy technician: PONV - clinical pharmacy technician Female No 07/16/24 14:53 HX of Motion Sickness No 07/16/24 14:53 HX of N/V After Surgery No 07/16/24 14:53 Non-Smoker Yes 07/16/24 14:53 Duration of Surgery greater Yes 07/16/24 14:53 than 60 minutes Number of Risk Factors 2 07/16/24 14:53 PONV Score Moderate Risk 07/16/24 14:53 Height & Weight Height & Weight: Anesthesia: Height & Weight Height 5 ft 11 in 07/07/24 07:22 Respiratory Assessment Respiratory Assessment - clinical pharmacy technician: Respiratory Tract Infection Hx - clinical pharmacy technician Hx Respiratory Tract Infection No 07/16/24 14:53 STOP Sleep Apnea STOP Sleep Apnea - clinical pharmacy technician: STOP Sleep Apnea - clinical pharmacy technician Hx Hypertension Yes: CONTROLLED ON MED 07/16/24 14:53 Hx Sleep Apnea No 07/16/24 14:53 CPAP No 07/16/24 14:53 BIPAP No 07/16/24 14:53 Do you snore loudly (louder No 07/16/24 14:53 than talking or can be heard Do you often feel tired/ No 07/16/24 14:53 fatigued/ sleepy during daytime? Has anyone observed you stop No 07/16/24 14:53 breathing during sleep? STOP Results Negative 07/16/24 14:53 QUESTION #5 FULL TEXT : Do you snore loudly (louder than talking or can be heard through closed doors)? Tobacco Use History Tobacco Use History - clinical pharmacy technician: Tobacco Use History - clinical pharmacy technician Tobacco Use Non-smoker 06/30/24 15:56 Smoking Status Never smoker 07/16/24 14:53 Hx Tobacco Use No 07/16/24 14:53 Years Smoking Packs Smoked per Day Smoking Cessation Date was within the last 15 years Hx Smoking Cessation Date Hx Smoking Cessation Counseling Hematologic Medial History Hematologic Hx - clinical pharmacy technician: Hematologic Medical Hx - flat breakdown processor Hx of Blood Transfusion Yes 07/16/24 14:53 Hx of Transfusion in last 3 No 07/16/24 14:53 Months Date of Last Transfusion (if within last 3 months) Ever experience any problems No 07/16/24 14:53 with transfusion(s)? Specify any problems Hx of Preganancy in last 3 N/A 07/16/24 14:53 Months Nurse Filling Out Transfusion VCHRISTIN 07/16/24 14:53 & Questions: Date: 07/16/24 07/16/24 14:53 Time: 14:54 07/16/24 14:53 Patient unable to answer at this time (ie. confused, unrespo /Reproduction History /Reproductive History - clinical pharmacy technician: /Reproductive Hx- clinical pharmacy technician Hx Now Gestational Age (in weeks): EDC: Hx Hx Para Hx Section SAB No 07/16/24 14:53 PFSH Medical History (Updated 07/16/24 @ 14:53 by Niya Harrison) Insulin dependent diabetes mellitus Diabetes History of renal dialysis History of renal disease Back pain Injury of back Dietary restriction Gastric reflux Non-smoker Leg cramps Cardiology follow-up encounter History of echocardiogram History of heart attack Acute non-ST elevation myocardial infarction (NSTEMI) CKD (chronic kidney disease), stage V Congestive heart failure of unknown etiology Overweight (BMI 25.0-29.9) NSTEMI, initial episode of care Acute kidney injury superimposed on chronic kidney disease Elevated troponin Pre-op testing ESRF (end stage renal failure) Stage 4 chronic kidney disease Diabetes mellitus type 1 Insulin pump titration Presence of insulin pump CKD (chronic kidney disease) Hypertension Obesity Abscess Charcot foot due to diabetes mellitus Type 1 diabetes mellitus Acute kidney injury DKA (diabetic ketoacidoses) DM type 1 (diabetes mellitus, type 1) Home Medications ?Medication ?Instructions ?Recorded ?Last Taken ?Type blood sugar diagnostic (FreeStyle #100 ea 10/08/21 Unknown Rx Lite Strips) lancing device with lancets kit #100 ea 11/26/21 Unknown Rx ([place] Delica Plus Lancing Device kit) pen needle, diabetic 32 gauge x #150 ea 02/26/22 Unknown Rx 5/32 (BD Ultra-Fine Carol Pen Needle) alcohol swabs (BD Alcohol Swabs) 1 pad topical .4 times daily #200 05/20/22 Unknown Rx ea aspirin 81 mg tablet,delayed 81 mg PO BREAKFAST #90 tabs 02/25/24 Unknown Rx release blood-glucose transmitter (Dexcom #1 ea 02/25/24 Unknown Rx G6 Transmitter device) clopidogrel 75 mg tablet 75 mg PO DAILY #90 tabs 02/25/24 Unknown Rx insulin aspart U-100 100 unit/mL 80 unit (0.8 mL) continuous 02/25/24 Unknown Rx subcutaneous solution (Novolog subcutaneous infusion .continuous U-100 Insulin aspart) #72 mL metoprolol succinate 25 mg 25 mg PO DAILY #90 tabs 02/25/24 Unknown Rx tablet,extended release 24 hr rosuvastatin 10 mg tablet 10 mg PO DAILY #90 tabs 02/25/24 Unknown Rx insulin syringe-needle U-100 0.3 #100 ea 03/30/24 Unknown Rx mL 31 gauge x 5/16 (BD Insulin Syringe Ultra-Fine) pen needle, diabetic 32 gauge x #50 ea 03/30/24 Unknown Rx 5/32 (BD Ultra-Fine Carol Pen Needle) blood-glucose meter,continuous #1 ea 04/01/24 Unknown Rx (Dexcom G6 Horseback Excavator) blood-glucose sensor (Dexcom G6 #9 ea 04/01/24 Unknown Rx Sensor device) insulin pump cart,auto,BT,G6/7 #30 ea 04/01/24 Unknown Rx (Omnipod 5 G6-G7 Pods (Gen 5) subcutaneous cartridge) amlodipine 5 mg tablet 5 mg PO DAILY #90 tabs 05/10/24 Unknown Rx sevelamer carbonate 800 mg tablet 800 mg PO DAILY 06/18/24 Unknown History insulin glargine 100 unit/mL (3 20 unit subcut QAM PRN PRN 07/16/24 Unknown History mL) subcutaneous pen (Lantus Solostar U-100 Insulin) Allergy/AdvReac Type Severity Reaction Status Date / Time No Known Allergies Allergy Verified 07/16/24 14:39 Family History Mother Diabetes Thyroid disorder Grandmother Diabetes Grandfather Diabetes Surgical History (Updated 07/16/24 @ 14:53 by Niya Harrison) History of cardiac catheterization History of heart surgery Hx of surgical procedure History of coronary artery stent placement History of surgery on lower extremity Social History Smoking Status: Never smoker alcohol intake: never substance use type: does not use Audit: Pertinent Findings Pertinent Findings EKG Perinent findings: 01/30/2024. Normal sinus rhythm. 82 bpm. Left axis deviation. Echo (EF%) pertinent findings: 01/23/2024. EF 60%. Consult pertinent findings: Cardiology 02/25/2024. Coronary artery disease. Stent placement 01/23/2024. Mid LAD. Stable. Hypertension. Chronic. Stable. Recommendation Anesthesia Recommendation Anesthesia recommendation: OPTIMIZED for anesthesia
[2024-07-20] VITALS (8 sets, daily range): BP systolic 137–158; BP diastolic 60–88; PULSE 67–73; RESP 16–20; TEMP 36.3–36.8; O2SAT 94–100; BMI 28.5
--- NOTE | 2024-07-20 13:48 | PRE.ANES_ITS ---
ASA Classification* ASA Classification ASA Classification: 3 Assessment & Plan Anesthesia* Anesthesia Assessment Anesthesia Assessment: Discussed sedation and/or anesthesia options, risks, benefits, and alternatives with patient/parents/legal guardian/POA. Questions invited. The patient/parents/legal guardian/POA seems to understand and agrees to proceed with anesthesia plan. Reviewed the physical assessment, medical history, allergy history and patient home medications list prior to surgery/procedure/anesthetic and documented any changes. Performed airway and anesthesia risk assessments. Anesthesia Type Anesthesia Type: MAC History Source History Obtained from:: Patient and Chart Anesthesia Focused Assessment* Temperature: 98.2 F Pulse Rate: 70 Blood Pressure: 152/60 Respiratory Rate: 16 Pulse Ox: 100 Oxygen Delivery Method: Room Air Airway Assessment Mouth opens: >3 cm Mallampati Score: I Teeth Condition: Intact Neck Range of motion (ROM): Full ROM Focused Labs Anesthesia Preop lab: CBC WBC 7.9 K/mm3 (4.4-11.0) 07/07/24 06:55 07/07/24 RBC 3.28 M/mm3 (4.6-6.2) L 07/07/24 06:55 07/07/24 Hgb 10.2 g/dL (13.0-16.5) L 07/07/24 06:55 5 Hct 29.6 % (40-54) L 07/07/24 06:55 07/07/24 Plt Count 273 K/mm3 (150-450) 07/07/24 06:55 07/07/24 CHEMISTRY Potassium 4.3 mmol/L (3.3-5.1) 07/07/24 06:55 07/07/24 Sodium 134 mmol/L (133-145) 07/07/24 06:55 07/07/24 Magnesium 2.5 mg/dL (1.6-2.6) 01/23/24 01:40 01/23/24 Phosphorus 4.9 mg/dL (2.5-4.9) 01/24/24 03:30 01/24/24 BUN 43 mg/dL (4-19) H 07/07/24 06:55 07/07/24 Creatinine 5.67 mg/dL (0.70-1.20) H 07/07/24 06:55 Glucose 209 mg/dL (70-99) H 07/07/24 06:55 07/07/24 POC Glucose 188 mg/dL (74-106) H 04/20/24 11:00 04/20/24 TSH 1.100 uIU/mL (0.358-3.740) 01/23/24 01:40 1008/21 COAG PT 13.9 SECONDS (11.7-14.9) 01/22/24 20:30 Pre-Assessment Diagnosis/Proposed Procedure Planned Operative Procedure(s): (L) left Fistula Arteriovenous Ligation Anesthesia History Anesthesia History - systems project manager: Anesthesia History - systems project manager Hx Hospitalization Yes: 12/202307/16/24 14:53 Any Problems With Anesthesia No 07/16/24 14:53 Cholinesterase deficiency No 07/16/24 14:53 You/Your Family Experience No 07/16/24 14:53 fever (hyperthermia) with Relationship Recent Exposure to Contagious No 07/20/24 13:23 Disease Does patient have nerve No 07/16/24 14:53 stimulator Patient instructed to have device shut off --Does patient have Pacemaker No 07/20/24 13:23 or ICD? When Was Last Pacemaker Check QUESTION #4 FULL TEXT: You/Your Family Experience fever (hyperthermia) with Anesthesia Last Oral Intake Last Oral intake: Last Oral Intake NPO since 07:50 07/20/24 13:23 Meds taken in AM with sips of Yes 07/20/24 13:23 water? Meds patient instructed to see med rec 07/20/24 13:23 take am of surgery Any additional information?: Yes NPO since: 07:50 (Patient has meds at 7:50 AM w ith water.) Meds taken in AM with sips of water?: Yes PONV PONV - systems project manager: PONV - systems project manager Female No 07/16/24 14:53 HX of Motion Sickness No 07/16/24 14:53 HX of N/V After Surgery No 07/16/24 14:53 Non-Smoker Yes 07/16/24 14:53 Duration of Surgery greater Yes 07/16/24 14:53 than 60 minutes Number of Risk Factors 2 07/16/24 14:53 PONV Score Moderate Risk 04/18/25 14:53 Height & Weight Height & Weight: Anesthesia: Height & Weight Height 5 ft 11 in 07/20/24 13:23 Weight: 92.8 kg 07/20/24 13:23 Body Mass Index (BMI) 28.5 07/20/24 13:23 Respiratory Assessment Respiratory Assessment - systems project manager: Respiratory Tract Infection Hx - systems project manager Hx Respiratory Tract Infection No 07/16/24 14:53 STOP Sleep Apnea STOP Sleep Apnea - systems project manager: STOP Sleep Apnea - systems project manager Hx Hypertension Yes: CONTROLLED ON MED 07/16/24 14:53 Hx Sleep Apnea No 07/16/24 14:53 CPAP No 07/16/24 14:53 BIPAP No 07/16/24 14:53 Do you snore loudly (louder No 07/16/24 14:53 than talking or can be heard Do you often feel tired/ No 07/16/24 14:53 fatigued/ sleepy during daytime? Has anyone observed you stop No 07/16/24 14:53 breathing during sleep? STOP Results Negative 07/16/24 14:53 QUESTION #5 FULL TEXT : Do you snore loudly (louder than talking or can be heard through closed doors)? Tobacco Use History Tobacco Use History - systems project manager: Tobacco Use History - systems project manager Tobacco Use Non-smoker 06/30/24 15:56 Smoking Status Never smoker 07/16/24 14:53 Hx Tobacco Use No 07/16/24 14:53 Years Smoking Packs Smoked per Day Smoking Cessation Date was within the last 15 years Hx Smoking Cessation Date Hx Smoking Cessation Counseling Hematologic Medial History Hematologic Hx - systems project manager: Hematologic Medical Hx - portrait consultant Hx of Blood Transfusion Yes 07/16/24 14:53 Hx of Transfusion in last 3 No 07/16/24 14:53 Months Date of Last Transfusion (if within last 3 months) Ever experience any problems No 07/16/24 14:53 with transfusion(s)? Specify any problems Hx of Preganancy in last 3 N/A 07/16/24 14:53 Months Nurse Filling Out Transfusion VCHRISTIN 07/16/24 14:53 & Questions: Date: 07/16/24 07/16/24 14:53 Time: 14:54 07/16/24 14:53 Patient unable to answer at this time (ie. confused, unrespo /Reproduction History /Reproductive History - systems project manager: /Reproductive Hx- systems project manager Hx Now Gestational Age (in weeks): EDC: Hx Hx Para Hx Section SAB No 07/16/24 14:53 Active Medications Active Medications: Current Medications Generic Name Dose Route Start Last Admin Trade Name Freq PRN Reason Stop Dose Admin Cefazolin Sodium 2 gm/ N/A 20 mls @ 400 mls/hr 07/20/24 14:30 IV 07/20/24 14:32 INTRAOP ONE [facility] Medical History Insulin dependent diabetes mellitus Diabetes History of renal dialysis History of renal disease Back pain Injury of back Dietary restriction Gastric reflux Non-smoker Leg cramps Cardiology follow-up encounter History of echocardiogram History of heart attack Acute non-ST elevation myocardial infarction (NSTEMI) CKD (chronic kidney disease), stage V Congestive heart failure of unknown etiology Overweight (BMI 25.0-29.9) NSTEMI, initial episode of care Acute kidney injury superimposed on chronic kidney disease Elevated troponin Pre-op testing ESRF (end stage renal failure) Stage 4 chronic kidney disease Diabetes mellitus type 1 Insulin pump titration Presence of insulin pump CKD (chronic kidney disease) Hypertension Obesity Abscess Charcot foot due to diabetes mellitus Type 1 diabetes mellitus Acute kidney injury DKA (diabetic ketoacidoses) DM type 1 (diabetes mellitus, type 1) Home Medications ?Medication ?Instructions ?Recorded ?Last Taken ?Type blood sugar diagnostic (FreeStyle #100 ea 10/08/21 Unk nown Rx Lite Strips) lancing device with lancets kit #100 ea 11/26/21 Unkno wn Rx (OneTouch Delica Plus Lancing Device kit) pen needle, diabetic 32 gauge x #150 ea 02/26/22 Unkno wn Rx 32 (BD Ultra-Fine Carol Pen Needle) alcohol swabs (BD Alcohol Swabs) 1 pad topical .4 time s daily #200 05/20/22 Unknown Rx ea aspirin 81 mg tablet,delayed 81 mg PO BREAKFAST #90 ta bs 02/25/24 Unknown Rx release blood-glucose transmitter (Dexcom #1 ea 02/25/24 Unkno wn Rx G6 Transmitter device) clopidogrel 75 mg tablet 75 mg PO DAILY #90 tabs 01/3007/20/24 07:50 Rx insulin aspart U-100 100 unit/mL 80 unit (0.8 mL) cont inuous 02/25/24 Unknown Rx subcutaneous solution (Novolog subcutaneous infusion . continuous U-100 Insulin aspart) #72 mL metoprolol succinate 25 mg 25 mg PO DAILY #90 tabs 07/20/24 07:50 Rx tablet,extended release 24 hr rosuvastatin 10 mg tablet 10 mg PO DAILY #90 tabs 01/3007/20/24 07:50 Rx insulin syringe-needle U-100 0.3 #100 ea 03/30/24 Unkn own Rx mL 31 gauge x 5/16 (BD Insulin Syringe Ultra-Fine) pen needle, diabetic 32 gauge x #50 ea 03/30/24 Unknow n Rx 5/32 (BD Ultra-Fine Carol Pen Needle) blood-glucose meter,continuous #1 ea 04/01/24 Unknown Rx (Dexcom G6 Roving Hand) blood-glucose sensor (Dexcom G6 #9 ea 04/01/24 Unknown Rx Sensor device) insulin pump cart,auto,BT,G6/7 #30 ea 04/01/24 Unknown Rx (Omnipod 5 G6-G7 Pods (Gen 5) subcutaneous cartridge) amlodipine 5 mg tablet 5 mg PO DAILY #90 tabs 05/1007/20/24 07:50 Rx sevelamer carbonate 800 mg tablet 800 mg PO DAILY 05/30 04/24 Unknown History insulin glargine 100 unit/mL (3 20 unit subcut QAM PRN PRN 07/16/24 Unknown History mL) subcutaneous pen (Lantus Solostar U-100 Insulin) Allergy/AdvReac Type Severity Reaction Status Date / Time No Known Allergies Allergy Verified 07/20/24 13:21 Family History Mother Diabetes Thyroid disorder Grandmother Diabetes Grandfather Diabetes Surgical History History of cardiac catheterization History of heart surgery Hx of surgical procedure History of coronary artery stent placement History of surgery on lower extremity Social History Smoking Status: Never smoker alcohol intake: never substance use type: does not use Review of Systems (Anesthesia) ROS Narrative System reviewed and no additional complaints, except as documented.
--- NOTE | 2024-07-20 15:55 | PCM.HP.BLA ---
History and Physical Allergies No Known Allergies Allergy (Verified 06/18/24 11:29) Medications ?Medication ?Instructions ?Recorded ?Confirmed ?Type blood sugar diagnostic (FreeStyle #100 ea 10/08/21 06/18/24 Rx Lite Strips) lancing device with lancets kit #100 ea 11/26/21 06/18/24 Rx (OneTouch Delica Plus Lancing Device kit) pen needle, diabetic 32 gauge x #150 ea 02/26/22 06/18/24 Rx 5/32 (BD Ultra-Fine Carol Pen Needle) alcohol swabs (BD Alcohol Swabs) 1 pad topical .4 times daily #200 05/20/22 06/18/24 Rx ea aspirin 81 mg tablet,delayed 81 mg PO BREAKFAST #90 tabs 02/25/24 06/18/24 Rx release blood-glucose transmitter (Dexcom #1 ea 02/25/24 06/18/24 Rx G6 Transmitter device) clopidogrel 75 mg tablet 75 mg PO DAILY #90 tabs 02/25/24 06/18/24 Rx insulin aspart U-100 100 unit/mL 80 unit (0.8 mL) continuous 02/25/24 06/18/24 Rx subcutaneous solution (Novolog subcutaneous infusion .continuous U-100 Insulin aspart) #72 mL metoprolol succinate 25 mg 25 mg PO DAILY #90 tabs 02/25/24 06/18/24 Rx tablet,extended release 24 hr rosuvastatin 10 mg tablet 10 mg PO DAILY #90 tabs 02/25/24 06/18/24 Rx insulin glargine 100 unit/mL (3 20 unit (0.2 mL) subcut QAM #15 mL 03/30/24 06/18/24 Rx mL) subcutaneous pen (Lantus Solostar U-100 Insulin) insulin syringe-needle U-100 0.3 #100 ea 03/30/24 06/18/24 Rx mL 31 gauge x 5/16 (BD Insulin Syringe Ultra-Fine) pen needle, diabetic 32 gauge x #50 ea 03/30/24 06/18/24 Rx 5/32 (BD Ultra-Fine Carol Pen Needle) blood-glucose meter,continuous #1 ea 04/01/24 06/18/24 Rx (Dexcom G6 Fish Dressing Machine Feeder) blood-glucose sensor (Dexcom G6 #9 ea 04/01/24 06/18/24 Rx Sensor device) insulin pump cart,auto,BT,G6/7 #30 ea 04/01/24 06/18/24 Rx (Omnipod 5 G6-G7 Pods (Gen 5) subcutaneous cartridge) amlodipine 5 mg tablet 5 mg PO DAILY #90 tabs 05/10/24 06/18/24 Rx sevelamer carbonate 800 mg tablet 800 mg PO TID 06/18/24 06/18/24 History Have you fallen in the past year?: No PFSH Medical History ESRF (end stage renal failure) Hypertension DM type 1 (diabetes mellitus, type 1) Acute non-ST elevation myocardial infarction (NSTEMI) CKD (chronic kidney disease), stage V Congestive heart failure of unknown etiology Overweight (BMI 25.0-29.9) NSTEMI, initial episode of care Acute kidney injury superimposed on chronic kidney disease Elevated troponin DKA (diabetic ketoacidoses) Acute kidney injury Pre-op testing Stage 4 chronic kidney disease Diabetes mellitus type 1 Insulin pump titration Presence of insulin pump CKD (chronic kidney disease) Obesity Abscess Charcot foot due to diabetes mellitus Type 1 diabetes mellitus Surgical History History of coronary artery stent placement History of surgery on lower extremity Family History Mother Diabetes Thyroid disorderGrandmother DiabetesGrandfather Diabetes Social History Smoking Status: Never smoker alcohol intake: never substance use type: does not use HPI HPI HPI: LAURIE GONZALES, is a 43 M who presents to the office today for follow-up of his L radiocephalic AVF. Recall that this was created by Dr. Vargas in 07/2023 and he had a few postoperative visits but was then lost to follow-up before the fistula was cleared for use. At last OV in March, AV fistula had satisfactory exam and cleared for use with dialysis. Dialysis did try to utilize the fistula, but unable to make clearance so they have been using his IJ catheter. He had a fistula duplex 06/10/24 which demonstrated stenosis at the proximal anastomosis, inadequate flow, and multiple stealing branches. ROS General General: Yes appetite; No weight change, fatigue, colon cancer, breast cancer or weakness HEENT HEENT: No difficulty swallowing, eye injury, eye surgery, swollen glands or hoarseness Endo Endocrine: Yes diabetes mellitus; No thyroid disease, thyroid cancer, Hair loss, heat intolerance or cold intolerance Skin Skin: No rash or changing moles Musc Musculoskeletal: No back problems, arthritis, rheumatoid arthritis, gout or joint pain Cardio Cardiovascular: Yes heart stent; No murmur, pacemaker, heart disease, atrial fibrillation, high blood pressure, heart attack, palpitations, shortness of breath with exertion or chest pain Psych Psychiatric: No depression, anxiety or hearing voices Resp Respiratory: No shortness of breath, No sleep apnea, No cough, No COPD, No asthma, No emphysema and No wheezing Gastro Gastrointestinal: No abdominal pain, No nausea or vomiting, No diarrhea, No constipation, No blood in stool, No acid reflux, No hemorrhoids, No ulcers, No gallbladder problem and No black,tarry stools Mc Hematologic: Yes blood thinners, No blood disorders, No bleeding, Yes anemia and No blood clots Neuro Neurologic: No system reviewed and no additional complaints, except as documented, No as per HPI, No abnormal gait, No abnormal hearing, No abnormal movements, No abnormal speech, No behavioral changes, No burning sensations, No confusion, No convulsions, No disequilibrium, No dizziness, No localized weakness, No frequent falls, No headache(s), No lack of coordination, No loss of vision, No memory loss, No numbness, No other visual disturbances, No radicular pain, No restless legs, No sensory deficit, No syncope, No tingling, No tremor(s), No weakness and No other Exam Const General: cooperative, comfortable and no acute distress Orientation: alert, awake and oriented x3 [facility] Head: no palpable skull fracture, normocephalic and atraumatic Ears: hearing grossly normal bilaterally and external ears normal Nose: external nose normal Eyes General: appearance normal, both eyes and all related structures Resp Effort & Inspection: normal respiratory effort, able to speak in complete sentences, symmetric chest movement, no audible wheezes, no grunting, not labored, no respiratory distress and no retractions Cardio Rate: regular rate Rhythm: regular rhythm Other: L forearm AVF with easily palpable thrill and excellent bruit from wrist to proximal upper arm Palpable radial/ulnar pulses, L hand appropriately warm and pink Skin General: no rashes or lesions noted Wounds: no wounds Neuro General: moves all extremities, no focal motor deficits and CN's II-XI intact bilaterally Speech: speech normal Extremities Lower Extremity Edema: None: Bilateral Psych Appearance: grossly normal Mental Status: mental status grossly normal Mood: congruent mood Affect: normal affect Speech and Movement: speech and movement normal Attitude: cooperative Judgment: judgment good Coding Level of Care Code Off vis,est,level 3 Diagnoses Malfunction of arteriovenous dialysis fistula T82.590A Assessment and Plan Assessment and Plan (1) Malfunction of arteriovenous dialysis fistula: Status: Acute Plan -fistulagram revealed multiple branches -ligate branches
[2024-07-20] MEDS: Cefazolin 2 GM in Syringe IV (16:05)
[2024-07-20] MEDS: Bupivacaine 0.25% 30 ML Vial (16:24)
[2024-07-20] MEDS: Lidocaine 1% (30 ml sdv) 30 ML Vial (16:24)
--- NOTE | 2024-07-20 16:40 | EX.PCM.DISCH ---
Discharge Instructions Diet Discharge Diet: No restrictions Activity Lifting Restrictions: do not lift > 20 lbs with left arm for 10 days Additional Activity Instructions:: do not submerge incision for 10 days Dressing / Incision Call your doctor if your incision/area has: Sudden Increased Bleeding, Increased Pain/ Swelling, Increased Redness and Foul Smelling Discharge Call your doctor if you observe: Coldness, Increased Pain and Numbness or Tingling Remove Dressing in: 2 days Cleanse incision/area with: Soap & Water Follow Up Care Test Results: Test results from this visit will be discussed in further detail at your follow-up appointment, if applicable. Discharge Plan Admission Attending Provider: Garrison Valadez Primary Care Provider: Kristal Luke Instructions Print Language: Maltese Discharge Orders/Prescriptions Prescriptions: New oxycodone 5 mg tablet 5 mg PO Q8H PRN (Reason: pain) 2 Days Qty: 6 0RF Continued (DME) FreeStyle Lite Strips Strip See Rx Instructions .Route Qty: 100 6RF Rx Instructions: 3x/day clopidogrel 75 mg tablet 75 mg PO DAILY Qty: 90 3RF metoprolol succinate 25 mg tablet extended release 24 hr 25 mg PO DAILY Qty: 90 3RF aspirin 81 mg tablet,delayed release (DR/EC) 81 mg PO BREAKFAST Qty: 90 3RF (DME) Dexcom G6 Transmitter Device See Rx Instructions .Route Qty: 1 1RF Rx Instructions: 1 q 90 days insulin aspart U-100 [Novolog U-100 Insulin aspart] 100 unit/mL solution 80 unit continuous subcutaneous infusion .continuous Qty: 72 1RF rosuvastatin 10 mg tablet 10 mg PO DAILY Qty: 90 1RF sevelamer carbonate 800 mg tablet 800 mg PO DAILY Rx Instructions: must administer with a meal/food insulin glargine [Lantus Solostar U-100 Insulin] 100 unit/mL (3 mL) insulin pen 20 unit subcut QAM PRN (Reason: PRN) (DME) lancing device with lancets [[employer] Delica Plus Lanc Dev] Kit See Rx Instructions .Route Qty: 100 1RF Rx Instructions: 4x/day (DME) pen needle, diabetic [BD Ultra-Fine Carol Pen Needle] 32 gauge x 5/32 needle See Rx Instructions .ROUTE .MEDSUPPLY Qty: 150 5RF Rx Instructions: 4 times daily alcohol swabs [BD Alcohol Swabs] Pads, Medicated 1 pad TOPICAL .4 times daily Qty: 200 5RF (DME) pen needle, diabetic [BD Ultra-Fine Carol Pen Needle] 32 gauge x 5/32 needle See Rx Instructions .ROUTE .MEDSUPPLY Qty: 50 0RF Rx Instructions: daily (DME) insulin syringe-needle U-100 [BD Insulin Syringe Ultra-Fine] 0.3 mL 31 gauge x 5/16 syringe See Rx Instructions .Route Qty: 100 1RF Rx Instructions: tid (DME) Dexcom G6 Financial Analysis Advisor Misc See Rx Instructions .Route Qty: 1 0RF Rx Instructions: As directed (DME) Dexcom G6 Sensor Device See Rx Instructions .Route Qty: 9 1RF Rx Instructions: 1 sensor q 10 days (DME) Omnipod 5 G6-G7 Pods (Gen 5) Cartridge See Rx Instructions .Route Qty: 30 1RF Rx Instructions: change every 3 days amlodipine 5 mg tablet 5 mg PO DAILY Qty: 90 3RF Referrals / Follow Up: Kristal Luke MD [Primary Care Provider] - Disposition Disposition (needs filled in before D/C Order can be placed): Home, Self Care
--- NOTE | 2024-07-20 16:50 | OP.PCM_ITS ---
Operative Report (Standard) Operative Information Date of Procedure: 07/20/24 Pre-Operative Diagnosis: non-maturing left rad-ceph fistula Post-Operative Diagnosis: same Surgery/Procedure Performed: ligation multiple fistula branches sales office coordinator: Yes Environmental Services Project Manager: Pako Bowman Tasks completed by kennel assistant: Opening, Closing, Opening & closing and Hemostasis: Tie Type of Anesthesia: Local MAC, Local and MAC RN Documented Start/Stop Times: Operation Date: 07/20/24 14:30 Case Time Into Pre-Op 07/20/24 12:55 Anesthesia Start 07/20/24 15:57 Into Room 07/20/24 15:57 Out of Pre-Op 07/20/24 15:57 Procedure Start 07/20/24 16:25 Procedure End 07/20/24 16:48 Anesthesia End 07/20/24 16:51 Out of Room 07/20/24 16:51 Into Recovery 07/20/24 16:53 Out of Recovery 07/20/24 17:31 Into Phase II Recovery 07/20/24 17:32 Procedure Start Time: 16:25 Procedure Stop Time: 16:48 Select all DRAINS/GRAFTS/IMPLANTS that apply: None Estimated Blood Loss: 8 Specimen collected: No Description of surgery: HPI: Patient is a 43-year-old male with a previous left radiocephalic fistula creation that is failed to mature. He had a duplex which is revealed multiple large caliber branches at the proximal aspect of the fistula as well as what appeared to be stenosis adjacent to the anastomosis. He had a previous fistulogram which revealed no stenosis however did reveal that nearly all of the contrast egress from the fistula went through these 2 large branches. He presents now for ligation of the fistula branches to aid in maturity of the dominant outflow vessel aid in maturation and ultimate use of the fistula. Description of procedure: Upon obtaining form consent and verification correct patient procedure site the patient was taken to the operating where he was positioned prepped and draped in usual sterile fashion. Moderate sedation was administered anesthesia and ultrasound used to evaluate the fistula in the 2 large sidebranches marked. Skin overlying the fistula branches was anesthetized with 1% lidocaine and longitudinal incision made centered over each of these branches. Bovie electrocautery was used to dissect down through subcutaneous tissue followed by sharp dissection dissecting free each of these branches individually circumferentially. The branch were then ligated with silk ties. After branch ligation there continued to be palpable thrill in the fistula in the vessel was evaluated with Doppler found to be patent with low resistance signal. The incision was then closed with 3-0 Vicryl followed by 4 Monocryl and Dermabond for the skin. The patient was then taken to the recovery room with anticipated discharge to home. Surgical Findings: see above Complications Complications: No
--- NOTE | 2024-07-20 16:54 | PCM.POST.ANE ---
Anesthesia: Postop Eval I Current Vital Signs Temperature: 97.3 F Pulse Rate: 73 Blood Pressure: 137/85 Respiratory Rate: 20 Pulse Ox: 95 Oxygen Delivery Method: Room Air Assessment Airway patent: Yes Spontaneous unlabored respirations: Yes Mental status: Awake and Calm nausea: No Vomiting: No Anesthesia Complication: No Fluid Hydration Crystalloid volume administer (ml): 250 Total IV fluid infused: 250 Progress Note Anesthesia document: Postop Eval 1 completed: Yes
[2024-07-20] MEDS: Heparin 10,000 UNITS/10 ML Vial 1000 UNITS IV (18:04)
--- NOTE | 2024-07-20 20:28 | POSTOPAN2_ITS ---
Anesthesia Postop Eval I Sum Postop Eval Completion status Anesthesia document: Postop Eval 1 completed: Yes Anesthesia Postop Eval I Summary Anesthesia Postop Eval I Summary: Anesthesia Postop Eval I: Assessment Summary Airway patent Yes 07/20/24 16:55 PAPER [email or web address] Spontaneous unlabored Yes 07/20/24 16:55 PAPER [email or web address] [email or web address] respirations Mental status Awake,Calm 07/20/24 16:55 PAPER [email or web address] nausea No 07/20/24 16:55 PAPER [email or web address] Vomiting No 07/20/24 16:55 PAPER [email or web address] [email or web address] Anesthesia Postop Eval I: Fluid Summary Crystalloid volume administer 250 07/20/24 16:55 PAPER [email or web address] (ml) Colloids volume administered ( ml) Blood Product volume administered (ml) Total IV fluid infused 250 07/20/24 16:55 PAPER [email or web address] Anesthesia Postop Eval I: Summary Notes Anesthesia Complication No 07/20/24 16:55 PAPER [email or web address] Anesthesia Complication Comment: Post-operative progress note Anesthesia: Postop Eval II Evaluation Mental status: Awake and Calm Pain Level: 0 nausea: No Vomiting: No Complications Anesthesia Complication: No
--- NOTE | 2024-07-20 20:28 | PCM.POSTANE2 ---
Anesthesia Postop Eval I Sum Postop Eval Completion status Anesthesia document: Postop Eval 1 completed: Yes Anesthesia Postop Eval I Summary Anesthesia Postop Eval I Summary: Anesthesia Postop Eval I: Assessment Summary Airway patent Yes 07/20/24 16:55 INTERNATIONAL MARKETING COORDINATOR.[email or web address] Spontaneous unlabored Yes 07/20/24 16:55 INTERNATIONAL MARKETING COORDINATOR.[email or web address] respirations Mental status Awake,Calm 07/20/24 16:55 INTERNATIONAL MARKETING COORDINATOR.[email or web address] nausea No 07/20/24 16:55 INTERNATIONAL MARKETING COORDINATOR.[email or web address] Vomiting No 07/20/24 16:55 INTERNATIONAL MARKETING COORDINATOR.[email or web address] Anesthesia Postop Eval I: Fluid Summary Crystalloid volume administer 250 07/20/24 16:55 INTERNATIONAL MARKETING COORDINATOR.[email or web address] (ml) Colloids volume administered ( ml) Blood Product volume administered (ml) Total IV fluid infused 250 07/20/24 16:55 INTERNATIONAL MARKETING COORDINATOR.[email or web address] Anesthesia Postop Eval I: Summary Notes Anesthesia Complication No 07/20/24 16:55 INTERNATIONAL MARKETING COORDINATOR.[email or web address] Anesthesia Complication Comment: Post-operative progress note Anesthesia: Postop Eval II Evaluation Mental status: Awake and Calm Pain Level: 0 nausea: No Vomiting: No Complications Anesthesia Complication: No
== END 2024-07-20 18:30 | disposition home or self-care (01) ==
LOC: SDC 12:49 → AC 12:50
PROVIDERS: PCP Internal Medicine; Referring Provider Surgery Trauma Surgery; Visit Provider Surgery Trauma Surgery
PROC: (CPT 37607; principal; 2024-07-20 14:15)
DX: T82.590A Other mechanical complication of surgically created arteriovenous fistula, initial encounter (principal); I12.0 Hypertensive chronic kidney disease with stage 5 chronic kidney disease or end stage renal disease; N18.6 End stage renal disease; E10.22 Type 1 diabetes mellitus with diabetic chronic kidney disease; Z79.4 Long term (current) use of insulin; X58.XXXA Exposure to other specified factors, initial encounter; I25.2 Old myocardial infarction; Z95.5 Presence of coronary angioplasty implant and graft; Z99.2 Dependence on renal dialysis; Z96.41 Presence of insulin pump (external) (internal); Z79.02 Long term (current) use of antithrombotics/antiplatelets; Z79.82 Long term (current) use of aspirin; Z79.899 Other long term (current) drug therapy
CPT/HCPCS: 37607; 01840; A4216; J2405

== ENCOUNTER 2024-08-10 19:35 | Observation (INO) | payer MEDICAID, SELFPAY ==
[2024-08-10] VITALS (8 sets, daily range): BP systolic 151–173; BP diastolic 83–102; PULSE 94–108; RESP 15–19; TEMP 36.1–36.8; O2SAT 100; BMI 27.7
--- NOTE | 2024-08-10 19:59 | EKG12_ITS ---
Test Reason : CP Blood Pressure : */* mmHG Vent. Rate : 100 BPM Atrial Rate : 100 BPM P-R Int : 146 ms QRS Dur : 78 ms QT Int : 386 ms P-R-T Axes : 38 53 78 degrees QTcB Int : 497 ms Sinus rhythm with Premature atrial complexes Prolonged QT Abnormal ECG MT DEPRESSION LEAD II Confirmed by Lio Cross ([id number]), editor trade journal ADRIANA MANJARREZ ([id number]) on 08/12/2024 10:03:21 AM Referred By: JOY Confirmed By: Lio Cross
--- NOTE | 2024-08-10 20:05 | RAD_ITS ---
PROCEDURE: CHEST PA AND LATERAL 08/10/2024 REASON FOR EXAM: CHEST PAIN TECHNIQUE: Frontal and lateral views of the chest. COMPARISON: Chest radiographs 01/30/2024 and 01/25/2024 FINDINGS: Hardware: Right-sided catheter, with tip in unchanged position near the superior cavoatrial junction. Heart: The heart size is normal. Mediastinum: The mediastinal contour is unremarkable. Lungs: The lungs are clear. Bones: The bones are unremarkable. RAD/Chest PA and Lateral IMPRESSION: No acute cardiopulmonary abnormality. Reading Location: [id number]
[2024-08-10 20:13] LABS: Absolute Lymphocyte Count 1.39 X10^3/uL (0.83-4.51); Absolute Neutrophil Count 8.9 X10^3/uL (2.0-7.7); Basophil# 0.07 X10^3/uL; Basophil% 0.6 % (0-1); Eosinophil# 0.11 X10^3/uL; Hemoglobin 13.6 g/dL (13.0-16.5); Lymphocyte # 1.39 X10^3/ul (0.83-4.51); Lymphocyte % 12.1 % (19-41); Mean Corp Hgb Conc 34.9 g/dL (32-36); Mean Corpuscular Hgb 30.8 pg (27.0-32.0); Mean Corpuscular Volume 88.2 fL (80-94); Mean Platelet Vol. 9.2 fl (6.2-12.0); Monocyte# 0.95 X10^3/uL; Monocyte% 8.3 % (0-10); NRBC Flagged by Analyzer 0 % (0-5); Neutrophil # 8.87 X10^3/uL (2.7-7.7); Neutrophil % 77.5 % (47-70); Platelet Count 359 K/mm3 (150-450); RBC Distribution Width CV 12.8 % (11.6-14.6); RBC Distribution Width SD 41.7 fl (35.1-43.9); Red Blood Count 4.42 M/mm3 (4.6-6.2); White Blood Count 11.5 K/mm3 (4.4-11.0)
[2024-08-10 20:39] LABS: International Normalized Ratio 0.9; Prothrombin Time (Protime)PT. 12.7 SECONDS (11.7-14.9)
[2024-08-10 20:40] LABS: Partial Thromboplast Time 24.5 Seconds (24.1-36.2)
[2024-08-10 21:07] LABS: Anion Gap 26 (5-15); BUN 48 mg/dL (4-19); BUN/Creat Ratio 7.3 RATIO (10-20); Carbon Dioxide 20.8 mmol/L (21.0-32.0); Chloride 91 mmol/L (98-108); Creatinine, Serum 6.57 mg/dL (0.70-1.20); EST Glomerular Filtration Rate 10 (>60); Glucose 118 mg/dL (70-99); Sodium Level 138 mmol/L (133-145)
[2024-08-10 21:15] LABS: Troponin T High Sensitivity 211 ng/L (<=22)
--- NOTE | 2024-08-10 21:15 | ED.RN ---
Critical troponin of [address] Yanes notified and primary RN Naila
--- NOTE | 2024-08-10 21:17 | ED.VIS.CHEST ---
HPI History of Present Illness Chief Complaint: Chest Pain Informant: patient Narrative Narrative: Presents with chest pain starting yesterday around 6 PM after dialysis. States pain started his back then moved to the front stating sharp in nature made him nauseated. He states similar presentation last December when he had his heart attack requiring 1 stent in his LAD. He is currently on aspirin and Plavix he took today's dose. He had pain throughout the night. Currently pain is subsided. He does make urine. He states diabetes history age of 18 on insulin. He had chronic kidney disease at that time. He states with his heart attack and receiving IV dye he went into renal failure starting dialysis. He is followed by Dr. Diaz. He had dialysis whole course yesterday. He is unaware of any other coronary lesions. He does not smoke. No recent travel or surgeries. Denies family history of MIs at a young age. Prior Similar Symptoms: Yes and With Prior [place] CVD Risk Factors: Positive for Hypertension, Diabetes and Hypercholesterolemia; Negative for Family History 1' </=55 or Smoking PE Risk Factors: Negative for Recent Travel/Surgery, Recent Immobilization or Prior DVT or PE [facility] Medical History Insulin dependent diabetes mellitus Diabetes History of renal dialysis History of renal disease Back pain Injury of back Dietary restriction Gastric reflux Non-smoker Leg cramps Cardiology follow-up encounter History of echocardiogram History of heart attack Acute non-ST elevation myocardial infarction (NSTEMI) CKD (chronic kidney disease), stage V Congestive heart failure of unknown etiology Overweight (BMI 25.0-29.9) NSTEMI, initial episode of care Acute kidney injury superimposed on chronic kidney disease Elevated troponin Pre-op testing ESRF (end stage renal failure) Stage 4 chronic kidney disease Diabetes mellitus type 1 Insulin pump titration Presence of insulin pump CKD (chronic kidney disease) Hypertension Obesity Abscess Charcot foot due to diabetes mellitus Type 1 diabetes mellitus Acute kidney injury DKA (diabetic ketoacidoses) DM type 1 (diabetes mellitus, type 1) Home Medications ?Medication ?Instructions ?Recorded ?Last Taken ?Type blood sugar diagnostic (FreeStyle #100 ea 10/08/21 Unknown Rx Lite Strips) lancing device with lancets kit #100 ea 11/26/21 Unknown Rx (AskablogrTouch Delica Plus Lancing Device kit) pen needle, diabetic 32 gauge x #150 ea 02/26/22 Unknown Rx 5/32 (BD Ultra-Fine Carol Pen Needle) aspirin 81 mg tablet,delayed 81 mg PO BREAKFAST #90 tabs 02/25/24 08/10/24 Rx release clopidogrel 75 mg tablet 75 mg PO DAILY #90 tabs 02/25/24 08/10/24 Rx insulin aspart U-100 100 unit/mL 80 unit (0.8 mL) continuous 02/25/24 08/10/24 Rx subcutaneous solution (Novolog subcutaneous infusion .continuous U-100 Insulin aspart) #72 mL metoprolol succinate 25 mg 25 mg PO DAILY #90 tabs 02/25/24 08/10/24 Rx tablet,extended release 24 hr rosuvastatin 10 mg tablet 10 mg PO DAILY #90 tabs 02/25/24 08/10/24 Rx insulin syringe-needle U-100 0.3 #100 ea 03/30/24 Unknown Rx mL 31 gauge x 5/16 (BD Insulin Syringe Ultra-Fine) pen needle, diabetic 32 gauge x #50 ea 03/30/24 Unknown Rx 5/32 (BD Ultra-Fine Carol Pen Needle) blood-glucose meter,continuous #1 ea 04/01/24 Unknown Rx (Dexcom G6 System Administration Manager) insulin pump cart,auto,BT,G6/7 #30 ea 04/01/24 Unknown Rx (Omnipod 5 G6-G7 Pods (Gen 5) subcutaneous cartridge) amlodipine 5 mg tablet 5 mg PO DAILY #90 tabs 05/10/24 08/10/24 Rx sevelamer carbonate 800 mg tablet 800 mg PO DAILY 06/18/24 08/10/24 History blood-glucose sensor (Dexcom G6 #9 ea 07/23/24 Unknown Rx Sensor device) blood-glucose transmitter (Dexcom #1 ea 07/23/24 Unknown Rx G6 Transmitter device) cholecalciferol (vitamin D3) 50 150 mcg PO MOWEFR 07/28/24 08/09/24 History mcg (2,000 unit) capsule loratadine 5 mg-pseudoephedrine ER 1 tab PO Q12H 08/05/24 Unknown History 120 mg tablet,extended release,12hr (Claritin-D 12 Hour) Allergy/AdvReac Type Severity Reaction Status Date / Time No Known Allergies Allergy Verified 08/10/24 19:36 Family History Mother Diabetes Thyroid disorder Grandmother Diabetes Grandfather Diabetes Surgical History History of cardiac catheterization History of heart surgery Hx of surgical procedure History of coronary artery stent placement History of surgery on lower extremity Social History Smoking Status: Never smoker alcohol intake: never substance use type: does not use ROS ROS ED Constitutional Constitutional ED: Denies chills, fever(s) or sweats ENT ENT ED: Denies sore throat Cardiovascular Cardiovascular: Reports chest pain; Denies leg edema, palpitations or racing heartbeat Respiratory/Chest Respiratory/Chest: Denies cough, dyspnea or dyspnea on exertion Gastrointestinal Gastrointestinal: Denies abdominal pain, diarrhea, nausea or vomiting Genitourinary Genitourinary ED: Denies dysuria, hematuria or urinary frequency Musculoskeletal Musculoskeletal: Reports back pain; Denies extremity pain or neck pain Integumentary Denies rash or wounds Neurologic Neurologic: Denies headache(s), paresthesias or weakness EXAM Physical Exam Const Vital Signs: 08/10/24 19:36 08/10/24 19:49 08/10/24 20:03 Temperature 97 F L Temperature Source Temporal Pulse Rate 102 H Respiratory Rate 18 Respiratory Effort Normal Non-Labored Blood Pressure 151/102 H Blood Pressure Mean 118 Pulse Ox 100 100 Oxygen Delivery Method Room Air Room Air 08/10/24 20:35 08/10/24 21:00 08/10/24 21:56 Temperature Temperature Source Pulse Rate 94 105 H 98 Respiratory Rate 16 18 18 Respiratory Effort Blood Pressure 163/84 H 163/83 H 173/84 H Blood Pressure Mean 110 109 113 Pulse Ox 100 100 100 Oxygen Delivery Method Room Air Room Air Room Air 08/10/24 22:00 08/10/24 23:00 08/10/24 23:50 Temperature 98.3 F Temperature Source Pulse Rate 99 102 H 108 H Respiratory Rate 16 15 19 H Respiratory Effort Blood Pressure 173/84 H 169/86 H 164/96 H Blood Pressure Mean 113 113 118 Pulse Ox 100 100 100 Oxygen Delivery Method Room Air Room Air Positive well nourished and well developed General Appearance ED: well developed and NAD HEENT Reports moist mucous membranes normocephalic and atraumatic Eyes General Eye ED: Yes normal appearance of both eyes Neck full ROM Chest Wall Chest: Negative for tenderness Resp normal respiratory effort and normal air movement Effort and Inspection: symmetric chest movement; Negative for respiratory distress Cardio regular rate, regular rhythm and no murmurs Peripheral Pulses: pulses 2+ throughout GI normal to inspection, nondistended, normoactive bowel sounds and non-tender Palpation: Negative for guarding or rebound tenderness present Extremity normal to inspection General Extremety ED: Negative for edema or tenderness General Extremity: Negative for edema Neuro oriented x3 and no sensory deficits noted Sensorium / Orientation: awake and alert Skin no rashes or lesions noted and no wounds Heart Score History: Moderately Suspicious ECG: Normal Age: </= 45 years Risk Factors: >/= 3 Risk Factors or History of CAD Troponin: >/=3 x Normal Limit Score: 5 MDM MDM MDM Narrative Medical decision making narrative: Interventions / MDM: Differential diagnosis: chest pain, end-stage renal disease on hemodialysis, history of coronary disease Diagnosis considered but do not suspect: Aortic dissection however CT negative. My EKG interpretation: Sinus rate of 100, no ST changes, isolated T wave inversion in aVL. QTc of 497. Imaging independently reviewed and interpreted by myself: 2 view chest x-ray. No acute process right chest wall Vas-Cath. CT angiogram chest: No PE or dissection. hemangioma of the liver noted. External documents reviewed: Cardiac cath December 2023: Coronary angiography; 1. Left main is normal angiographically calcified with extension of calcification into LAD. The left main coronary artery bifurcates into LAD and left circumflex 2. The left anterior descending artery had diffuse atherosclerosis of around 70% involving the mid LAD after the first septal branch. There was a fairly diagonal had diffuse atherosclerosis of around 70 the second diagonal also is a small but have a diffuse atherosclerosis 70-80. The LAD in the distal portion has no significant atherosclerosis 3. The left circumflex is moderate in size second OM branch had mid and the distal diffuse atherosclerosis of around 60% 4. RCA is large dominant with distal RCA had around 50% The bifurcation of the PDA and the posterolateral branch has a diffuse atherosclerosis. CAD in conclusion this patient has with diabetes renal insufficiency diffuse coronary artery atherosclerosis with successful PCI of the culprit lesion for non-ST elevation [place] which is a diffuse left anterior descending artery. Test considered but not ordered:N/A ED course: Patient currently chest pain-free EKG with no acute findings. Patient presenting similar symptoms led to his heart attack this past December however states his pain was worse. He took his aspirin and Plavix today. Cardiac workup initiated. Chest x-ray ordered. 2119: Review of records he had multivessel disease culprit was the mid LAD at 70%. Troponin returned at 211. 2129: Reported from nursing patient had recurrent pain in his chest and vomited once. Order for repeat EKG. 2130: Repeat EKG unchanged. Symptoms subsiding. I reviewed records as he initially reported the similar symptoms from his hospitalization in December. Apparently was admitted for DKA at that time with vague symptoms leading to troponin 2199 then cardiology involvement for the catheterization. Since yesterday reporting pain in his back and sharp pain in his chest. I did discuss with him with his symptoms should rule out aortic dissection prior to starting heparin. He is on dialysis with next treatment tomorrow. I will order CT angio of the chest for dissection rule out prior to starting heparin. 2249: CT angiogram negative for dissection however notes right hepatic lobe mass of 6.5 cm with more likely consideration of hemangioma. Currently symptom-free. I spoke with on-call leather stripping machine operator Dr. Cross discussed his history his cath findings, he discussed that his vessels are small vessels that are not amenable to intervention. He states with his cardiac enzymes trending down and his symptoms are over 24 hours he would not recommend heparinizing at this time. He recommends admission for pharmacological stress test and if positive for cardiology to be involved for further workup otherwise plan for outpatient follow-up with cardiology team. I will speak with hospitalist service for admission. I spoke with Dr. Anika London for admission to PCU. 0: Per nursing patient another bout of emesis and chest discomfort. QTc 497. IV Reglan and IV morphine ordered for symptom control. Re-evaluation: stable Disposition discussed with patient/family/significant other: Patient and ex significant other Case discussed with consulting clinician: Cardiology, hospitalist This note was generated with Knowable dictation software. It may contain incorrect words, spelling, and punctuation that were not noted in checking the note before signing. Lab Data Attestation: I reviewed the patient's lab results. Labs: Laboratory Results - last 24 hr 08/10/24 08/10/24 08/10/24 19:40 19:46 21:35 WBC 11.5 H RBC 4.42 L Hgb 13.6 Hct 39.0 L MCV 88.2 MCH 30.8 MCHC 34.9 RDW Std Deviation 41.7 RDW Coeff of Marcella 12.8 Plt Count 359 MPV 9.2 Immature Gran % (Auto) 0.500 Neut % (Auto) 77.5 H Lymph % (Auto) 12.1 L [place] % (Auto) 8.3 Eos % (Auto) 1.0 Baso % (Auto) 0.6 Absolute Neuts (auto) 8.9 H Absolute Lymphs (auto) 1.39 Nucleated RBC % 0 PT 12.7 INR 0.9 APTT 24.5 Sodium 138 Potassium 4.0 Chloride 91 L Carbon Dioxide 20.8 L Anion Gap 26 H BUN 48 H Creatinine 6.57 H Estim Creat Clear Calc 15.60 L Est GFR (MDRD) Non-Af 10 L BUN/Creatinine Ratio 7.3 L Glucose 118 H Calcium 11.0 Troponin T High Sens 211 H* Troponin T Hi Sens 2 Hr 193 H* Radiography Diagnostic Testing: Clinical Impression(s) from Imaging Studies Chest X-Ray 08/10/24 20:05 IMPRESSION: No acute cardiopulmonary abnormality. Reading Location: [facility] Chest CTA 08/10/24 21:35 IMPRESSION: No evidence of pulmonary embolism or acute findings in the thorax. 6.5 x 4.7 cm right hepatic lobe mass. Differential considerations include a hemangioma. Recommend further evaluation with CT or MRI liver protocol. Reading [facility] Dis[facility] Plan Triage Chief Complaint: Chest Pain ED Provider: Jace Yanes Dx/Rx/DC Orders Prescriptions: No Action (DME) FreeStyle Lite Strips Strip See Rx Instructions .Route Qty: 100 6RF Rx Instructions: 3x/day clopidogrel 75 mg tablet 75 mg PO DAILY Qty: 90 3RF metoprolol succinate 25 mg tablet extended release 24 hr 25 mg PO DAILY Qty: 90 3RF aspirin 81 mg tablet,delayed release (DR/EC) 81 mg PO BREAKFAST Qty: 90 3RF insulin aspart U-100 [Novolog U-100 Insulin aspart] 100 unit/mL solution 80 unit continuous subcutaneous infusion .continuous Qty: 72 1RF rosuvastatin 10 mg tablet 10 mg PO DAILY Qty: 90 1RF cholecalciferol (vitamin D3) 50 mcg (2,000 unit) capsule 150 mcg PO MOWEFR sevelamer carbonate 800 mg tablet 800 mg PO DAILY Rx Instructions: must administer with a meal/food Claritin-D 12 Hour 5-120 mg tablet extended release 12 hr 1 tab PO Q12H (DME) lancing device with lancets [OneTouch Delica Plus Lanc Dev] Kit See Rx Instructions .Route Qty: 100 1RF Rx Instructions: 4x/day (DME) pen needle, diabetic [BD Ultra-Fine Carol Pen Needle] 32 gauge x 5/32 needle See Rx Instructions .ROUTE .MEDSUPPLY Qty: 150 5RF Rx Instructions: 4 times daily (DME) pen needle, diabetic [BD Ultra-Fine Carol Pen Needle] 32 gauge x 5/32 needle See Rx Instructions .ROUTE .MEDSUPPLY Qty: 50 0RF Rx Instructions: daily ([facility] [place]) insulin syringe-needle U-100 [BD Insulin Syringe Ultra-Fine] 0.3 mL 31 gauge x 5/16 syringe See Rx Instructions .Route Qty: 100 1RF Rx Instructions: tid (DME) Dexcom G6 System Administration Manager Misc See Rx Instructions .Route Qty: 1 0RF Rx Instructions: As directed ([facility] [place]) Omnipod 5 G6-G7 Pods (Gen 5) Cartridge See Rx Instructions .Route Qty: 30 1RF Rx Instructions: change every 3 days amlodipine 5 mg tablet 5 mg PO DAILY Qty: 90 3RF (DME) Dexcom G6 Sensor Device See Rx Instructions .Route Qty: 9 1RF Rx Instructions: 1 sensor q 10 days (DME) Dexcom G6 Transmitter Device See Rx Instructions .Route Qty: 1 1RF Rx Instructions: 1 q 90 days Primary Care Provider: Kristal Luke Referrals: Kristal Luke MD [Primary Care Provider] - Print Language: Kazakh
--- NOTE | 2024-08-10 21:25 | EKG12_ITS ---
Test Reason : CP REPEAT Blood Pressure : */* mmHG Vent. Rate : 103 BPM Atrial Rate : 103 BPM P-R Int : 148 ms QRS Dur : 80 ms QT Int : 384 ms P-R-T Axes : 45 76 80 degrees QTcB Int : 503 ms Sinus tachycardia with Premature atrial complexes Otherwise normal ECG POSSIBLE TN DEPRESSION NST WAVE CHANGES ABNORMAL Confirmed by Lio Cross ([id number]), intern architect ADRIANA MANJARREZ ([id number]) on 08/12/2024 10:04:11 AM Referred By: TL Confirmed By: Lio Cross
--- NOTE | 2024-08-10 21:35 | CT_ITS ---
PROCEDURE: CTA CHEST W/WO CONTRAST 08/10/2024 REASON FOR EXAM: CHEST PAIN TECHNIQUE: CTA axial imaging of the chest with intravenous contrast. Multiplanar and multisequence images were obtained. PATIENT PREPARATION: Per protocol One or more dose reduction techniques were used (e.g., Automated exposure control, adjustment of the mA and/or kV according to patient size, use of iterative reconstruction technique). CONTRAST: Omnipaque 350 VOLUME: 100 mL Not Provided Gauge IV COMPARISON: Chest radiograph 08/10/2024 FINDINGS: Hardware: None Lymph nodes: No suspicious adenopathy. Heart: No cardiomegaly. No pericardial effusion. Status post coronary stent. Mild atherosclerotic calcification otherwise. Thoracic Aorta: No thoracic aortic aneurysm or dissection. Pulmonary Vessels: No large central pulmonary emboli are identified. Contrast timing is suboptimal for evaluation of more distal branches. Most Proximal Level of Embolus (if embolus present): None Lungs and Airways: Central airways are patent without endobronchial lesions. No suspicious pulmonary nodule. No focal consolidation. No pneumothorax. No pleural effusion. Upper Abdomen: 6.5 x 4.7 cm heterogeneously enhancing right hepatic lobe mass (series 2, image 92). Bones: Bone windows are unremarkable. Soft tissue/mediastinum: Thyroid gland is unremarkable. Esophagus is nondilated. Bilateral gynecomastia. CT/CTA Chest W/WO Contrast IMPRESSION: No evidence of pulmonary embolism or acute findings in the thorax. 6.5 x 4.7 cm right hepatic lobe mass. Differential considerations include a he mangioma. Recommend further evaluation with CT or MRI liver protocol. Reading Location: [facility]
[2024-08-10 22:27] LABS: Troponin T High Sens 2 HR 193 ng/L (<=22)
--- NOTE | 2024-08-10 23:08 | PCM.HP.STD ---
HPI - General General Date of Admission: 08/10/24 Date of Service: 08/10/24 Chief Complaint: Chest pain HPI Narrative LAURIE GONZALES, is a 44 M who presented to the emergency department at [facility] on 08/10/2024 with a chief complaint of chest pain. Patient has a complex past medical history including type 1 diabetes on an insulin pump and end-stage renal disease on HD. Patient was at dialysis and completed dialysis, however, after dialysis he experienced chest pain. He states he started actually with some nausea and vomiting and had resultant chest pain. He does have a history of coronary artery disease with previous stent placement. He stated he did not have chest pain at that time and never really has any chest pain. Since his initial episode he has had ongoing intermittent nausea and vomiting and states that it seems to be correlated with his chest pain. He denies any correlated dyspnea or diaphoresis. Symptoms did not radiate and were substernal and seem to radiate from the epigastrium and to the central chest area. Vital signs on presentation showed temperature of 97, heart rate 102, respiratory was 18, blood pressure was initially 151/102 with a repeat of 168/84, and pulse ox was 100% on room air. CBC shows a mild leukocytosis with a white count 11.5. Hemoglobin was 13.6 with a history of chronic anemia so he does appear to be mildly hemoconcentrated. Neutrophils were 77.5%. Coags were unremarkable. Chemistry showed multiple deviations from normal related to his underlying renal disease. Initial troponin was 211 with a delta of 193 and a 4-hour troponin of 208. Lipase was normal at 25. EKG showed normal sinus rhythm without any ST-T wave changes concerning for acute ischemia. Chest x-ray was unremarkable. CTA of the chest showed no evidence of PE or dissection and demonstrated a 6.5 x 4.7 right hepatic lobe mass that looks consistent with hemangioma and further evaluation with a CT or MRI liver protocol was recommended. [facility] Medical History Insulin dependent diabetes mellitus Diabetes History of renal dialysis History of renal disease Back pain Injury of back Dietary restriction Gastric reflux Non-smoker Leg cramps Cardiology follow-up encounter History of echocardiogram History of heart attack Acute non-ST elevation myocardial infarction (NSTEMI) CKD (chronic kidney disease), stage V Congestive heart failure of unknown etiology Overweight (BMI 25.0-29.9) NSTEMI, initial episode of care Acute kidney injury superimposed on chronic kidney disease Elevated troponin Pre-op testing ESRF (end stage renal failure) Stage 4 chronic kidney disease Diabetes mellitus type 1 Insulin pump titration Presence of insulin pump CKD (chronic kidney disease) Hypertension Obesity Abscess Charcot foot due to diabetes mellitus Type 1 diabetes mellitus Acute kidney injury DKA (diabetic ketoacidoses) DM type 1 (diabetes mellitus, type 1) Home Medications ?Medication ?Instructions ?Recorded ?Last Taken ?Type blood sugar diagnostic (FreeStyle #100 ea 10/08/21 Unknown Rx Lite Strips) lancing device with lancets kit #100 ea 11/26/21 Unknown Rx ([employer] Plus Lancing Device kit) pen needle, diabetic 32 gauge x #150 ea 02/26/22 Unknown Rx 5/32 (BD Ultra-Fine Carol Pen Needle) aspirin 81 mg tablet,delayed 81 mg PO BREAKFAST #90 tabs 02/25/24 08/10/24 Rx release clopidogrel 75 mg tablet 75 mg PO DAILY #90 tabs 02/25/24 08/10/24 Rx insulin aspart U-100 100 unit/mL 80 unit (0.8 mL) continuous 02/25/24 08/10/24 Rx subcutaneous solution (Novolog subcutaneous infusion .continuous U-100 Insulin aspart) #72 mL metoprolol succinate 25 mg 25 mg PO DAILY #90 tabs 02/25/24 08/10/24 Rx tablet,extended release 24 hr rosuvastatin 10 mg tablet 10 mg PO DAILY #90 tabs 02/25/24 08/10/24 Rx insulin syringe-needle U-100 0.3 #100 ea 03/30/24 Unknown Rx mL 31 gauge x 5/16 (BD Insulin Syringe Ultra-Fine) pen needle, diabetic 32 gauge x #50 ea 03/30/24 Unknown Rx 5/32 (BD Ultra-Fine Carol Pen Needle) blood-glucose meter,continuous #1 ea 04/01/24 Unknown Rx (Dexcom G6 [place] Visitor) insulin pump cart,auto,BT,G6/7 #30 ea 04/01/24 Unknown Rx (Omnipod 5 G6-G7 Pods (Gen 5) subcutaneous cartridge) amlodipine 5 mg tablet 5 mg PO DAILY #90 tabs 05/10/24 08/10/24 Rx sevelamer carbonate 800 mg tablet 800 mg PO DAILY 06/18/24 08/10/24 History blood-glucose sensor (Dexcom G6 #9 ea 07/23/24 Unknown Rx Sensor device) blood-glucose transmitter (Dexcom #1 ea 07/23/24 Unknown Rx G6 Transmitter device) cholecalciferol (vitamin D3) 50 150 mcg PO MOWEFR 07/28/24 08/09/24 History mcg (2,000 unit) capsule loratadine 5 mg-pseudoephedrine ER 1 tab PO Q12H 08/05/24 Unknown History 120 mg tablet,extended release,12hr (Claritin-D 12 Hour) Allergy/AdvReac Type Severity Reaction Status Date / Time No Known Allergies Allergy Verified 08/10/24 19:36 Family History Mother Diabetes Thyroid disorder Grandmother Diabetes Grandfather Diabetes Surgical History History of cardiac catheterization History of heart surgery Hx of surgical procedure History of coronary artery stent placement History of surgery on lower extremity Social History Smoking Status: Never smoker alcohol intake: never substance use type: does not use ROS Constitutional Constitutional: Denies anorexia, change in weight, chills, fatigue, fever(s), malaise, night sweats, weakness or other Eyes Eyes: Denies blurry vision, change in eye color, change in vision, discharge from eye(s), double vision, erythema, eye pain, loss of vision or other ENT HEENT: Denies abnormal hearing, dysphagia, ear pain, epistaxis, headache(s), hearing loss, nasal congestion, nasal discharge, post nasal drip, sinus pressure, sore throat or other Cardiovascular Cardiovascular: Reports chest pain; Denies claudication, dyspnea on exertion, edema, lightheadedness, orthopnea, palpitations, paroxysmal nocturnal dyspnea, rapid heart rate, syncope or other Respiratory/Chest Respiratory/Chest: Denies cough, dyspnea, excessive phlegm production, hemoptysis, productive cough, shortness of breath at rest, shortness of breath with exertion, wheezing or other Gastrointestinal Gastrointestinal: Reports dyspepsia, nausea and vomiting; Denies abdominal pain, coffee ground emesis, constipation, diarrhea, hematemesis, hematochezia, loose stools, melena or other Genitourinary Genitourinary: Denies burning urination, difficulty urinating, dysuria, hematuria, nocturia, urinary frequency, urinary hesitancy, urinary incontinence, urinary urgency or other Musculoskeletal Musculoskeletal: Reports back pain; Denies arthralgias, joint pain, joint stiffness, joint swelling, myalgias, neck pain or other Neurologic Neurologic: Denies abnormal gait, abnormal speech, confusion, disequilibrium, dizziness, focal weakness, headache(s), numbness, paresthesias, seizure-like activity, seizures, syncope, tingling, tremor(s) or other Psychiatric Psychiatric: Denies anxiety, depression, homicidal ideation, suicidal ideation or other Endocrine Endocrinology: Denies change in body appearance, cold intolerance, excessive sweating, heat intolerance, polydipsia, polyuria or other Hematologic/Lymphatic Hematologic/Lymphatic: Denies anemia, easy bleeding, easy bruising, lymphadenopathy or other Allergic/Immunologic Allergic/Immunologic: Denies rhinitis, hives, eczemia, asthma or other Vital Signs Vital Signs Vital Signs: 08/10/24 19:36 08/10/24 19:49 08/10/24 20:03 Temperature 97 F L Temperature Source Temporal Pulse Rate 102 H Respiratory Rate 18 Respiratory Effort Normal Non-Labored Blood Pressure 151/102 H Blood Pressure Mean 118 Pulse Ox 100 100 Oxygen Delivery Method Room Air Room Air 08/10/24 20:35 08/10/24 21:00 08/10/24 21:56 Temperature Temperature Source Pulse Rate 94 105 H 98 Respiratory Rate 16 18 18 Respiratory Effort Blood Pressure 163/84 H 163/83 H 173/84 H Blood Pressure Mean 110 109 113 Pulse Ox 100 100 100 Oxygen Delivery Method Room Air Room Air Room Air 08/10/24 22:00 08/10/24 23:00 Temperature Temperature Source Pulse Rate 99 102 H Respiratory Rate 16 15 Respiratory Effort Blood Pressure 173/84 H 169/86 H Blood Pressure Mean 113 113 Pulse Ox 100 100 Oxygen Delivery Method Room Air Room Air Weight Weight: 90.2 kg Body Mass Index (BMI) 27.7 Physical Exam Const alert, oriented x3 and well nourished Constitutional Narrative: Overweight, middle-aged, white male, lying in bed and appears uncomfortable but not toxic, nursing at bedside, just had emesis General Appearance: cooperative HEENT normocephalic, head/scalp atraumatic, hearing grossly normal bilaterally and moist oral mucous membranes HEENT Narrative: Mallampati 3, no thrush Eyes EOMs intact bilaterally and conjunctivae normal Eyes Narrative: No scleral icterus Neck supple Neck Narrative: Trachea midline Resp normal respiratory effort, no retractions, no use of accessory muscles and clear to auscultation bilaterally Auscultation: Negative for rales, rhonchi or wheezes Cardio regular rate, regular rhythm, S1 normal heart sound, S2 normal heart sound, no murmurs, no rub, no gallops and no clicks GI normal to inspection, nondistended, normoactive bowel sounds, soft to palpation and non-tender GI Narrative: No tenderness in the abdomen or epigastric area Extremity no clubbing, cyanosis or edema Extremity Narrative: Pedal and radial pulses are 2+ Neuro oriented x3, moves all extremities and no focal motor deficits Speech: speech normal Psych Psych Narrative: Affect is slightly flat but appropriate for the situation, interacts appropriately and eye contact is good Results Lab / Micro Data 08/10/24 19:40 08/10/24 19:40 Labs: Laboratory Results - last 24 hr 08/10/24 19:40: WBC 11.5 H, RBC 4.42 L, Hgb 13.6, Hct 39.0 L, MCV 88.2, MCH 30.8, MCHC 34.9, RDW Std Deviation 41.7, RDW Coeff of Marcella 12.8, Plt Count 359, MPV 9.2, Immature Gran % (Auto) 0.500, Neut % (Auto) 77.5 H, Lymph % (Auto) 12.1 L, [place] % (Auto) 8.3, Eos % (Auto) 1.0, Baso % (Auto) 0.6, Absolute Neuts (auto) 8.9 H, Absolute Lymphs (auto) 1.39, Nucleated RBC % 0, Sodium 138, Potassium 4.0, Chloride 91 L, Carbon Dioxide 20.8 L, Anion Gap 26 H, BUN 48 H, Creatinine 6.57 H, Estim Creat Clear Calc 15.60 L, Est GFR (MDRD) Non-Af 10 L, BUN/Creatinine Ratio 7.3 L, Glucose 118 H, Calcium 11.0, Troponin T High Sens 211 H* 08/10/24 19:46: PT 12.7, INR 0.9, APTT 24.5 08/10/24 21:35: Troponin T Hi Sens 2 Hr 193 H* Imaging Radiology Impression Chest X-Ray 08/10/24 20:05 IMPRESSION: No acute cardiopulmonary abnormality. Reading Location: [id number] Chest CTA 08/10/24 21:35 IMPRESSION: No evidence of pulmonary embolism or acute findings in the thorax. 6.5 x 4.7 cm right hepatic lobe mass. Differential considerations include a hemangioma. Recommend further evaluation with CT or MRI liver protocol. Reading Location: [facility] Assessment & Plan Assessment/Plan (1) Chest pain: (2) Dyspepsia: (3) Elevated troponin: PLAN: Plan Chest pain with troponin elevation - Cardiac enzymes are elevated but mild and fluctuating and in the setting of renal disease the significance of this is unclear - Case was discussed with Dr. Lio Cross from cardiology by the emergency department--> Per discussion with ED physician Dr. Cross recommended obtaining a pharmacological stress test after reviewing his previous cardiac catheterization - Previous cardiac catheterization did show that his vessels were small that were not amenable to intervention -A.m. stress test ordered and if positive for ischemia cardiac consultation -Heparin drip not recommended at this time by cardiology - Check lipid panel - Check hemoglobin A1c - Continue Plavix - Continue aspirin - Continue metoprolol - Continue home statin - Significance of troponin elevation in the setting of CKD on dialysis is unclear Dyspepsia - GI cocktail given - Reevaluate tomorrow - Chest pain seems more consistent with dyspepsia however with his history it is prudent to rule out cardiac involvement Leukocytosis - Suspect either hemoconcentrated with nausea vomiting and/or reactive - Repeat in a.m. Liver mass - 6.5 x 4.7 cm right hepatic lobe mass - Differential included hemangioma - Recommend outpatient CT or MRI with liver protocol - Patient will need outpatient follow-up - Check a.m. liver enzymes End-stage renal disease - HD dependent - Consult nephrology - Normal dialysis days are MWF - Continue sevelamer History of chronic anemia secondary to renal disease - Patient currently not anemic - Monitor CBC DM-1 - Continue insulin pump - Pump auto regulates blood sugar - Continue outpatient follow-up with endocrinology - Check hemoglobin A1c CAD/essential hypertension/hyperlipidemia -Previous PCI to LAD - Last echocardiogram from 01/23/2024 showed EF of 60% with mild apical hypokinesis and mild mitral valve insufficiency but was otherwise unremarkable -Continue home metoprolol -Continue home amlodipine - Continue home rosuvastatin - Continue home aspirin and Plavix Secondary hyperparathyroidism - Continue home sevelamer Vitamin D deficiency - Continue vitamin D supplementation DVT prophylaxis - Subcu heparin 3 times daily CODE STATUS - Full code Charges/Coding Visit Charges Inpatient E&M: 57119 Init Hosp L2
--- NOTE | 2024-08-10 23:18 | EKG12_ITS ---
Test Reason : CP ADMIT Blood Pressure : */* mmHG Vent. Rate : 106 BPM Atrial Rate : 106 BPM P-R Int : 150 ms QRS Dur : 84 ms QT Int : 378 ms P-R-T Axes : 46 42 69 degrees QTcB Int : 502 ms Sinus tachycardia Otherwise normal ECG When compared with ECG of 10-Aug-2024 21:31, MANUAL COMPARISON REQUIRED DATA IS UNCONFIRMED Confirmed by MELISSA LACEY, DANIELLE ([id number]), greeting card editor ADRIANA MANJARREZ ([id number]) on 08/16/2024 9:33:20 AM Referred By: Confirmed By: DANIELLE TORRES MD
[2024-08-10] MEDS: Morphine 4 MG/ML Syringe IV (23:42)
[2024-08-10] MEDS: Metoclopramide 10 MG/2 ML Vial 5 MG IV (23:43)
[2024-08-10] MEDS: Mag Hydrox/Al Hydrox/Simeth 30 ML UDC PO (23:48)
[2024-08-10] MEDS: Lidocaine 2% Viscous15 ML UDC 15 ML PO (23:48)
[2024-08-11] VITALS (17 sets, daily range): BP systolic 95–180; BP diastolic 66–105; PULSE 89–108; RESP 14–18; TEMP 36.7–36.8; O2SAT 98–100; BMI 27.1; BMI 26.9
[2024-08-11 00:08] LABS: Lipase 25 U/L (13-75)
[2024-08-11 00:10] LABS: Troponin T High Sens 4 HR 208 ng/L (<=22)
[2024-08-11 05:51] LABS: Absolute Lymphocyte Count 1.47 X10^3/uL (0.83-4.51); Absolute Neutrophil Count 8.2 X10^3/uL (2.0-7.7); Basophil# 0.08 X10^3/uL; Basophil% 0.7 % (0-1); Eosinophil# 0.09 X10^3/uL; Eosinophils% 0.8 % (0-5); Hematocrit 34.8 % (40-54); Hemoglobin 12.1 g/dL (13.0-16.5); Lymphocyte # 1.47 X10^3/ul (0.83-4.51); Lymphocyte % 13.4 % (19-41); Mean Corp Hgb Conc 34.8 g/dL (32-36); Mean Corpuscular Hgb 31.3 pg (27.0-32.0); Mean Corpuscular Volume 89.9 fL (80-94); Mean Platelet Vol. 9.4 fl (6.2-12.0); Monocyte# 1.05 X10^3/uL; Monocyte% 9.6 % (0-10); NRBC Flagged by Analyzer 0 % (0-5); Neutrophil % 75.1 % (47-70); Platelet Count 302 K/mm3 (150-450); RBC Distribution Width SD 42.2 fl (35.1-43.9); Red Blood Count 3.87 M/mm3 (4.6-6.2); White Blood Count 10.9 K/mm3 (4.4-11.0)
[2024-08-11] MEDS: amLODIPine 5 MG Tablet PO (05:57)
[2024-08-11] MEDS: Aspirin E.C. 81 MG Tablet PO (05:57)
[2024-08-11] MEDS: Clopidogrel Bisulfate 75 MG Tablet PO (05:58)
[2024-08-11 06:16] LABS: Hemoglobin A1c 7.2 % (<=5.6)
[2024-08-11 06:18] LABS: ALB/GLOB Ratio 1.6 RATIO (0.9-2.4); AST(SGOT) 18 U/L (<=37); Alanine Aminotransfer ALT/SGPT 10 U/L (<=46); Albumin, Serum 4.3 g/dL (3.5-5.0); Alkaline Phosphatase 81 U/L (40-129); Anion Gap 27 (5-15); BUN 56 mg/dL (4-19); BUN/Creat Ratio 7.7 RATIO (10-20); Calcium,Total 9.6 mg/dL (7.6-11.0); Carbon Dioxide 20.8 mmol/L (21.0-32.0); Chloride 89 mmol/L (98-108); Cholesterol 145 mg/dL (<=200); Creatinine, Serum 7.33 mg/dL (0.70-1.20); EST Glomerular Filtration Rate 9 (>60); Estimated Creatinine Clearance 13.98 ml/min (50-250); Globulin 2.7 g/dL (2.2-4.2); Glucose 183 mg/dL (70-99); High Density Lipoprotein 55 mg/dL; Low Density Lipoprotein Calc. 61 mg/dL; Magnesium 2.6 mg/dL (1.5-2.2); Phosphorus 6.8 mg/dL (2.7-4.5); Potassium 4.4 mmol/L (3.3-5.1); Protein, Total 7.1 g/dL (5.9-8.4); Sodium Level 136 mmol/L (133-145); Total Bilirubin 0.38 mg/dL (0.00-1.30); Triglycerides 146 mg/dL; Very Low Density Lipoprotein 29 mg/dL (5-40); cholesterol:hdl ratio screen 2.65
[2024-08-11] MEDS: Ondansetron 4 MG/2 ML Vial IV (08:22)
[2024-08-11] MEDS: Acetaminophen 325 MG Tablet 650 MG PO (08:23)
--- NOTE | 2024-08-11 09:18 | CON.PCM.RE_ITS ---
Assessment & Plan Assessment/Plan (1) ESRD (end stage renal disease) on dialysis: PLAN: Plan Impression/Plan: The patient is a 44-year-old male with past history of ESRD, type 1 diabetes mellitus, hypertension, CAD status post prior PCI, and hyperlipidemia. Patient presents to hospital on 08/10/2024 with chest pain. He is scheduled for pharmacologic stress test today. Nephrology is asked see the patient because of ESRD and for dialysis management. ESRD. Patient usually dialyzes on MWF schedule at [facility] [place]. Will arrange for dialysis on his usual schedule today after stress test. Will use 3K dialysate. Will ultrafilter to his usual target weight. HPI Consult Data Date of Consult: 08/11/24 HPI Narrative Reason for Consultation: ESRD HPI Narrative: The patient is a 44-year-old male with past history of ESRD, type 1 diabetes mellitus, hypertension, CAD status post prior PCI, and hyperlipidemia. Patient presents to hospital on 08/10/2024 with chest pain. He is scheduled for pharmacologic stress test today. Nephrology is asked see the patient because of ESRD and for dialysis management. Patient dialyzes on MWF schedule at [facility]. Patient denies current chest pain. There is no dyspnea, nausea or vomiting. Denies increasing edema of the lower extremities. [facility] Medical History Insulin dependent diabetes mellitus Diabetes History of renal dialysis History of renal disease Back pain Injury of back Dietary restriction Gastric reflux Non-smoker Leg cramps Cardiology follow-up encounter History of echocardiogram History of heart attack Acute non-ST elevation myocardial infarction (NSTEMI) CKD (chronic kidney disease), stage V Congestive heart failure of unknown etiology Overweight (BMI 25.0-29.9) NSTEMI, initial episode of care Acute kidney injury superimposed on chronic kidney disease Elevated troponin Pre-op testing ESRF (end stage renal failure) Stage 4 chronic kidney disease Diabetes mellitus type 1 Insulin pump titration Presence of insulin pump CKD (chronic kidney disease) Hypertension Obesity Abscess Charcot foot due to diabetes mellitus Type 1 diabetes mellitus Acute kidney injury DKA (diabetic ketoacidoses) DM type 1 (diabetes mellitus, type 1) Home Medications ?Medication ?Instructions ?Recorded ?Last Taken ?Type blood sugar diagnostic (FreeStyle #100 ea 10/08/21 Unk nown Rx Lite Strips) lancing device with lancets kit #100 ea 11/26/21 Unkno wn Rx ([employer] Plus Lancing Device kit) pen needle, diabetic 32 gauge x #150 ea 02/26/22 Unkno wn Rx 5/32 (BD Ultra-Fine Carol Pen Needle) aspirin 81 mg tablet,delayed 81 mg PO BREAKFAST #90 ta bs 02/25/24 08/10/24 Rx release clopidogrel 75 mg tablet 75 mg PO DAILY #90 tabs 01/3008/10/24 Rx insulin aspart U-100 100 unit/mL 80 unit (0.8 mL) cont inuous 02/25/24 08/10/24 Rx subcutaneous solution (Novolog subcutaneous infusion . continuous U-100 Insulin aspart) #72 mL metoprolol succinate 25 mg 25 mg PO DAILY #90 tabs 08/10/24 Rx tablet,extended release 24 hr rosuvastatin 10 mg tablet 10 mg PO DAILY #90 tabs 01/3008/10/24 Rx insulin syringe-needle U-100 0.3 #100 ea 03/30/24 Unkn own Rx mL 31 gauge x 5/16 (BD Insulin Syringe Ultra-Fine) pen needle, diabetic 32 gauge x #50 ea 03/30/24 Unknow n Rx 5/32 (BD Ultra-Fine Carol Pen Needle) blood-glucose meter,continuous #1 ea 04/01/24 Unknown Rx (Dexcom G6 Computer Software [employer]) insulin pump cart,auto,BT,G6/7 #30 ea 04/01/24 Unknown Rx (Omnipod 5 G6-G7 Pods (Gen 5) subcutaneous cartridge) sevelamer carbonate 800 mg tablet 800 mg PO DAILY 05/3008/10/24 History blood-glucose sensor (Dexcom G6 #9 ea 07/23/24 Unknown Rx Sensor device) blood-glucose transmitter ([employer]excom #1 ea 07/23/24 Unkno wn Rx G6 Transmitter device) cholecalciferol (vitamin D3) 50 150 mcg PO MOWEFR /3 08/09/24 History mcg (2,000 unit) capsule loratadine 5 mg-pseudoephedrine ER 1 tab PO Q12H 08/05 Unknown History 120 mg tablet,extended release,12hr (Claritin-D 12 Hour) amlodipine 5 mg tablet 10 mg (2 x 5 mg) PO DAILY #9 0 tabs 08/11/24 08/10/24 Rx Allergy/AdvReac Type Severity Reaction Status Date / Time No Known Allergies Allergy Verified 08/10/24 19:36 Family History Mother Diabetes Thyroid disorder Grandmother Diabetes Grandfather Diabetes Surgical History History of cardiac catheterization History of heart surgery Hx of surgical procedure History of coronary artery stent placement History of surgery on lower extremity Social History Smoking Status: Never smoker alcohol intake: never substance use type: does not use ROS ROS Narrative As per HPI, otherwise contributory. Physical Exam Narrative General: Alert and oriented x3, NAD. HEENT: Normocephalic, atraumatic. Mucous membrane moist without erythema. PERRLA, EOMI. Hearing is intact. Neck: Supple, no JVD. Trachea is midline. No thyromegaly or lymphadenopathy. Cardiovascular: Normal S1, S2. No rubs, murmurs, or gallops. Respiratory: Lungs are clear to auscultation bilaterally. No wheezing, rhonchi, or rales. Abdomen: Normal bowel sounds, soft, nontender, no guarding or rebound, no organomegaly. Extremities: No clubbing, cyanosis, or edema. Musculoskeletal: Full passive range of motion, no joint swelling. Psychiatric: Normal mood and affect. Skin: Warm and dry, no rash. Neurologic: Cranial nerve II to XII are grossly intact. No focal neurologic deficits. Lab / Micro Data 08/11/24 05:26 08/11/24 05:26 Labs: Laboratory Results - last 24 hr 08/10/24 19:40: WBC 11.5 H, RBC 4.42 L, Hgb 13.6, Hct 39.0 L, MCV 88.2, MCH 30.8, MCHC 34.9, RDW Std Deviation 41.7, RDW Coeff of Marcella 12.8, Plt Count 359, MPV 9.2, Immature Gran % (Auto) 0.500, Neut % (Auto) 77.5 H, Lymph % (Auto) 12.1 L, [place] % (Auto) 8.3, Eos % (Auto) 1.0, Baso % (Auto) 0.6, Absolute Neuts (auto) 8.9 H, Absolute Lymphs (auto) 1.39, Nucleated RBC % 0, Sodium 138, Potassium 4.0, Chloride 91 L, Carbon Dioxide 20.8 L, Anion Gap 26 H, BUN 48 H, Creatinine 6.57 H, Estim Creat Clear Calc 15.60 L, Est GFR (MDRD) Non-Af 10 L, B UN/Creatinine Ratio 7.3 L, Glucose 118 H, Calcium 11.0, Troponin T High Sens 211 H* 08/10/24 19:46: PT 12.7, INR 0.9, APTT 24.5 08/10/24 21:35: Troponin T Hi Sens 2 Hr 193 H* 08/10/24 23:40: Troponin T Hi Sens 4Hr 208 H*, Lipase 25 08/11/24 05:26: WBC 10.9, RBC 3.87 L, Hgb 12.1 L, Hct 34.8 L, MCV 89.9, MCH 31.3, MCHC 34.8, RDW Std Deviation 42.2, RDW Coeff of Marcella 13.0, Plt Count 302, MPV 9.4, Immature Gran % (Auto) 0.400, Neut % (Auto) 75.1 H, Lymph % (Auto) 13.4 L, [place] % (Auto) 9.6, Eos % (Auto) 0.8, Baso % (Auto) 0.7, Absolute Neuts (auto) 8.2 H, Absolute Lymphs (auto) 1.47, Nucleated RBC % 0, Sodium 136, Potassium 4.4, Chloride 89 L, Carbon Dioxide 20.8 L, Anion Gap 27 H, BUN 56 H, Creatinine 7.33 H, Estim Creat Clear Calc 13.98 L, Est GFR (MDRD) Non-Af 9 L, B UN/Creatinine Ratio 7.7 L, Glucose 183 H, Hemoglobin A1c 7.2 H, Calcium 9.6, P hosphorus 6.8 H, Magnesium 2.6 H, Total Bilirubin 0.38, AST 18, ALT 10, Alkaline Phosphatase 81, Total Protein 7.1, Albumin 4.3, Globulin 2.7, Albumin/Globulin Ratio 1.6, Triglycerides 146, Cholesterol 145, LDL Cholesterol, Calc 61, VLDL Cholesterol 29, HDL Cholesterol 55, Cholesterol/HDL Ratio 2.65 Imaging Radiology Impression Chest X-Ray 08/10/24 20:05 IMPRESSION: No acute cardiopulmonary abnormality. Reading Location: [id number] Chest CTA 08/10/24 21:35 IMPRESSION: No evidence of pulmonary embolism or acute findings in the thorax. 6.5 x 4.7 cm right hepatic lobe mass. Differential considerations include a hemangioma. Recommend further evaluation with CT or MRI liver protocol. Reading Location[facility]
--- NOTE | 2024-08-11 09:28 | PCM.PN.HOSP ---
Reason for Visit Reason for Visit: Diagnoses Chest pain, unspecified (08/10/24) Epigastric pain (08/10/24) Other specified abnormal findings of blood chemistry (08/10/24) Objective Data Objective Data Vital Signs: Vital Signs Temp Pulse Resp BP Pulse Ox O2 Del Method 98.3 F 99 18 150/83 H 98 Room Air 08/11/24 05:53 08/11/24 05:53 08/11/24 05:53 08/11/24 05:53 08/11/24 05:53 08/11/24 05:53 Oxygen Delivery Method Room Air Weight: 194 lb 14.218 oz Body Mass Index (BMI) 27.1 Lab / Micro Data 08/11/24 05:26 08/11/24 05:26 Labs: Laboratory Results - last 24 hr 08/10/24 19:40: WBC 11.5 H, RBC 4.42 L, Hgb 13.6, Hct 39.0 L, MCV 88.2, MCH 30.8, MCHC 34.9, RDW Std Deviation 41.7, RDW Coeff of Marcella 12.8, Plt Count 359, MPV 9.2, Immature Gran % (Auto) 0.500, Neut % (Auto) 77.5 H, Lymph % (Auto) 12.1 L, [place] % (Auto) 8.3, Eos % (Auto) 1.0, Baso % (Auto) 0.6, Absolute Neuts (auto) 8.9 H, Absolute Lymphs (auto) 1.39, Nucleated RBC % 0, Sodium 138, Potassium 4.0, Chloride 91 L, Carbon Dioxide 20.8 L, Anion Gap 26 H, BUN 48 H, Creatinine 6.57 H, Estim Creat Clear Calc 15.60 L, Est GFR (MDRD) Non-Af 10 L, BUN/Creatinine Ratio 7.3 L, Glucose 118 H, Calcium 11.0, Troponin T High Sens 211 H* 08/10/24 19:46: PT 12.7, INR 0.9, APTT 24.5 08/10/24 21:35: Troponin T Hi Sens 2 Hr 193 H* 08/10/24 23:40: Troponin T Hi Sens 4Hr 208 H*, Lipase 25 08/11/24 05:26: WBC 10.9, RBC 3.87 L, Hgb 12.1 L, Hct 34.8 L, MCV 89.9, MCH 31.3, MCHC 34.8, RDW Std Deviation 42.2, RDW Coeff of Marcella 13.0, Plt Count 302, MPV 9.4, Immature Gran % (Auto) 0.400, Neut % (Auto) 75.1 H, Lymph % (Auto) 13.4 L, [place] % (Auto) 9.6, Eos % (Auto) 0.8, Baso % (Auto) 0.7, Absolute Neuts (auto) 8.2 H, Absolute Lymphs (auto) 1.47, Nucleated RBC % 0, Sodium 136, Potassium 4.4, Chloride 89 L, Carbon Dioxide 20.8 L, Anion Gap 27 H, BUN 56 H, Creatinine 7.33 H, Estim Creat Clear Calc 13.98 L, Est GFR (MDRD) Non-Af 9 L, BUN/Creatinine Ratio 7.7 L, Glucose 183 H, Hemoglobin A1c 7.2 H, Calcium 9.6, Phosphorus 6.8 H, Magnesium 2.6 H, Total Bilirubin 0.38, AST 18, ALT 10, Alkaline Phosphatase 81, Total Protein 7.1, Albumin 4.3, Globulin 2.7, Albumin/Globulin Ratio 1.6, Triglycerides 146, Cholesterol 145, LDL Cholesterol, Calc 61, VLDL Cholesterol 29, HDL Cholesterol 55, Cholesterol/HDL Ratio 2.65 Radiography Diagnostic Testing: Radiology Impression Chest X-Ray 08/10/24 20:05 IMPRESSION: No acute cardiopulmonary abnormality. Reading Location: [id number] Chest CTA 08/10/24 21:35 IMPRESSION: No evidence of pulmonary embolism or acute findings in the thorax. 6.5 x 4.7 cm right hepatic lobe mass. Differential considerations include a hemangioma. Recommend further evaluation with CT or MRI liver protocol. Reading Location: [facility] Assessment & Plan Assessment/Plan (1) Chest pain: (2) Dyspepsia: (3) Elevated troponin: PLAN: Plan C OTC 44-year-old gentleman was admitted with chest pain started after dialysis around 6 PM. Chest pain started back and then moved to the front sharp in nature along with nausea. Last CA in December 2023 that required stent in LAD. By the time patient came to ED chest pain had subsided. Denies family history of CA at young age elevation - Cardiac enzymes are elevated but mild and fluctuating and in the setting of renal disease the significance of this is unclear - Case was discussed with Dr. Lio Cross from cardiology by the emergency department--> Per discussion with ED physician Dr. Cross recommended obtaining a pharmacological stress test after reviewing his previous cardiac catheterization - Previous cardiac catheterization did show that his vessels were small that were not amenable to intervention -A.m. stress test ordered and if positive for ischemia cardiac consultation -Heparin drip not recommended at this time by cardiology - Check lipid panel - Check hemoglobin A1c - Continue Plavix - Continue aspirin - Continue metoprolol - Continue home statin - Significance of troponin elevation in the setting of CKD on dialysis is unclear Dyspepsia - GI cocktail given - Reevaluate tomorrow - Chest pain seems more consistent with dyspepsia however with his history it is prudent to rule out cardiac involvement Leukocytosis - Suspect either hemoconcentrated with nausea vomiting and/or reactive - Repeat in a.m. Liver mass - 6.5 x 4.7 cm right hepatic lobe mass - Differential included hemangioma - Recommend outpatient CT or MRI with liver protocol - Patient will need outpatient follow-up - Check a.m. liver enzymes End-stage renal disease - HD dependent - Consult nephrology - Normal dialysis days are MWF - Continue sevelamer History of chronic anemia secondary to renal disease - Patient currently not anemic - Monitor CBC DM-1 - Continue insulin pump - Pump auto regulates blood sugar - Continue outpatient follow-up with endocrinology - Check hemoglobin A1c CAD/essential hypertension/hyperlipidemia -Previous PCI to LAD - Last echocardiogram from 01/23/2024 showed EF of 60% with mild apical hypokinesis and mild mitral valve insufficiency but was otherwise unremarkable -Continue home metoprolol -Continue home amlodipine - Continue home rosuvastatin - Continue home aspirin and Plavix Secondary hyperparathyroidism - Continue home sevelamer Vitamin D deficiency - Continue vitamin D supplementation DVT prophylaxis - Subcu heparin 3 times daily CODE STATUS - Full code
[2024-08-11] MEDS: PureFlow B 2K Dialysis Soln 1 BAG 6 BAG PF (11:13)
[2024-08-11] MEDS: 0.9% Saline Lock 10 ML Syringe IV ×2 (11:13→15:12)
[2024-08-11] MEDS: Heparin 10,000 UNITS/10 ML Vial IV (11:14)
[2024-08-11] MEDS: 0.9% Normal Saline 1,000 ML IV.SOLN. 1000 ML OPERA.SITE (11:14)
[2024-08-11] MEDS: Heparin 10,000 UNITS/10 ML Vial 2000 UNITS IV (12:05)
--- NOTE | 2024-08-11 12:43 | STRESSREP ---
Stress Test Report Pharmacologic myocardial perfusion stress test. 45-year-old man with a history of chest pain and chronic renal insufficiency previous LAD stenting Resting EKG demonstrates sinus rhythm with a rate of 95 bpm. Resting blood pressure is 150/84 mmHg. 0.4 mg of regadenoson was infused per usual protocol followed by rapid intravenous saline flush injection. Continuous EKG monitoring was performed. The maximum heart rate was 107 bpm which was 60% of max impacted heart rate the maximum workload was 1 metabolic equivalent. At rest there were no ST or T wave changes noted to suggest ischemia and at peak infusion nonspecific ST changes were noted which did not meet the criteria for ischemia. No clinical angina is noted. The final blood pressure was 130/80 mmHg. Myocardial perfusion protocol. 12.0 mCi of technetium 99m sestamibi was injected at rest. 0.4 mg of regadenoson was infused per usual protocol. At peak infusion 35.6 mCi of technetium 99m sestamibi was injected stress images were obtained stress and rest images were reconstructed and compared in the short axis vertical long and horizontal long axis. Gated images were also obtained. Perfusion SPECT analysis: Review of the stress images demonstrate normal uptake of tracer noted in all areas of the myocardium except for a medium size area in the mid anterior wall with a perfusion defect. The resting images demonstrate a small sized area in the mid anterior wall with a perfusion defect suggesting a previous anterior infarct with mild ede-infarct ischemia. Gated SPECT analysis: The gated ejection fraction is 60%. Conclusion: Mildly abnormal pharmacologic myocardial perfusion stress test. Preserved ejection fraction. Previous anterior infarct with mild ede-infarct ischemia
--- NOTE | 2024-08-11 13:28 | CHAPLAIN ---
Type of Pastoral Visit _x__ Initial Visit ___ Follow-up Visit ___ On-call Visit ___ General Patient Visit ___ Spiritual Assessment ___ Family Conference ___ Bereavement ___ Rapid Response ___ Code Blue ___ Other (describe below) Pastoral Care Referral From _x__ Patient ___ Family ___ Nurse ___ Physician ___ Practice Office Associate ___ Heat Treater Helper ___ Other (describe below) Sacrament/Intervention ___ Active listening ___ Anointing ___ Rastafari ___ Bereavement ___ Communion ___ Fernanda exploration ___ ___ Life review ___ Prayer ___ Reconciliation ___ Sacrament of Sick _x__ Supportive presence ___ Wedding ___ Other (describe below) Pastoral Comments patient is currently getting dialysis when the visit began; pt is resting in bed and looking at his phone; pt states that he is used to being in the hospital and has had many health issues; pt states that he has no concerns or needs; pt denies desire for further care
--- NOTE | 2024-08-11 14:29 | PCM.DC ---
Discharge Instructions Diet Discharge Diet: Low fat / Low cholesterol, 1800 Calorie Control Diet and 2000 mg Sodium Diet DC O2, CPAP, BIPAP needs Home O2 Discharge instructions: No Dressing / Incision Discharge Activity: Return to Normal Activity Weight Bearing Status: Weight bearing as tolerated Dressing / Incision Call your doctor if you observe: Fever of 101 or Higher, Coldness, Increased Pain, Numbness or Tingling, Change in Color, Inability to urinate, Inability to have a bowel movement, Shortness of breath, Dizziness, Fainting spells, Swelling in the ankles, Chest pain, Prolonged hiccupping, Increased palpitations (irregular heartbeat) and Calf discomfort Follow Up Care When: IN 2 WEEKS Test Results: Test results from this visit will be discussed in further detail at your follow-up appointment, if applicable. Discharge Plan Admission Admit Date/Time: 08/10/24 23:09 Primary Reason for Your Visit: Atypical chest pain. ACS ruled out Attending Provider: Louis Koehler Primary Care Provider: Kristal Luke Consulting Providers: Eugenia London; Daisy iDaz Discharge Orders/Prescriptions Prescriptions: Continued (DME) FreeStyle Lite Strips Strip See Rx Instructions .Route Qty: 100 6RF Rx Instructions: 3x/day clopidogrel 75 mg tablet 75 mg PO DAILY Qty: 90 3RF metoprolol succinate 25 mg tablet extended release 24 hr 25 mg PO DAILY Qty: 90 3RF aspirin 81 mg tablet,delayed release (DR/EC) 81 mg PO BREAKFAST Qty: 90 3RF insulin aspart U-100 [Novolog U-100 Insulin aspart] 100 unit/mL solution 80 unit continuous subcutaneous infusion .continuous Qty: 72 1RF rosuvastatin 10 mg tablet 10 mg PO DAILY Qty: 90 1RF cholecalciferol (vitamin D3) 50 mcg (2,000 unit) capsule 150 mcg PO MOWEFR sevelamer carbonate 800 mg tablet 800 mg PO DAILY Rx Instructions: must administer with a meal/food Claritin-D 12 Hour 5-120 mg tablet extended release 12 hr 1 tab PO Q12H (DME) lancing device with lancets [[employer] Delica Plus Lanc Dev] Kit See Rx Instructions .Route Qty: 100 1RF Rx Instructions: 4x/day (DME) pen needle, diabetic [BD Ultra-Fine Carol Pen Needle] 32 gauge x 5/32 needle See Rx Instructions .ROUTE .MEDSUPPLY Qty: 150 5RF Rx Instructions: 4 times daily (DME) pen needle, diabetic [BD Ultra-Fine Carol Pen Needle] 32 gauge x 5/32 needle See Rx Instructions .ROUTE .MEDSUPPLY Qty: 50 0RF Rx Instructions: daily (DME) insulin syringe-needle U-100 [BD Insulin Syringe Ultra-Fine] 0.3 mL 31 gauge x 5/16 syringe See Rx Instructions .Route Qty: 100 1RF Rx Instructions: tid (DME) Dexcom G6 Urban Design Consultant Misc See Rx Instructions .Route Qty: 1 0RF Rx Instructions: As directed (DME) Omnipod 5 G6-G7 Pods (Gen 5) Cartridge See Rx Instructions .Route Qty: 30 1RF Rx Instructions: change every 3 days (DME) Dexcom G6 Sensor Device See Rx Instructions .Route Qty: 9 1RF Rx Instructions: 1 sensor q 10 days (DME) Dexcom G6 Transmitter Device See Rx Instructions .Route Qty: 1 1RF Rx Instructions: 1 q 90 days Changed amlodipine 5 mg tablet 10 mg PO DAILY Qty: 90 3RF Referrals / Follow Up: Kristal Luke MD [Primary Care Provider] - Self,Naila Tan [Emergency Nurse] - Daisy Diaz MD [Med Staff - Consulting] - Within 1 Month Disposition Disposition (needs filled in before D/C Order can be placed): Home, Self Care
--- NOTE | 2024-08-11 14:40 | PCM.DC.SUM ---
Providers Date of Admission: 08/10/24 Date of Discharge: 08/11/24 Primary Care Physician: Dr. Kristal Luke MD Consultations 08/11/24 00:26 Consult: Nephrology Routine Consulting Provider: Daisy Diaz Reason for Consult: ESRD-HD dependent EMERGENT Consult: No MD Notified: Yes Date Notified: 08/10/24 Time Notified: 23:16 Method of Notification: Answering Service Reason For Visit: CHEST PAIN Diagnosis Discharge Diagnosis (1) Chest pain: Status: Acute Code(s): R07.9 - Chest pain, unspecified (2) Dyspepsia: Status: Acute Code(s): R10.13 - Epigastric pain (3) Elevated troponin: Status: Acute Code(s): R79.89 - Other specified abnormal findings of blood chemistry Plan This is 44-year-old gentleman was admitted with chest pain started after dialysis around 6 PM. Chest pain started back and then moved to the front sharp in nature along with nausea. Last RI in December 2023 that required stent in LAD. By the time patient came to ED chest pain had subsided. Denies family history of RI at young age 1. ACS ruled out. Patient is being admitted in PCU. Troponins have elevated 211, 193, 208, flat and indeterminant. Twelve-lead EKG shows sinus tachycardia 100/min, no ST-T changes, isolated T wave inversion in aVL. QTc 497 ms. Chest x-ray shows no acute process. CTA chest no PE or dissection. Repeat EKG shows sinus tachycardia 119 bpm, PAC, bifascicular block, RBBB and LAFB. ED physician discussed with paradichlorobenzene tender Dr. Lio Cross and he reviewed his previous cardiac cath in December 2023 which showed small vessel disease not amenable to intervention. Pharmacological stress test was done which she reported preserved EF, previous anterior infarct with mild ede-infarct infix ischemia. Discussed with the paradichlorobenzene tender Dr. Garcia who reported that stress and he said patient can go home. No acute RI. Patient is being discharged. 2. Essential hypertension: Blood pressure is not controlled. Systolic in 170s. IV hydralazine and IV labetalol ordered. Patient is discharged and advised follow with PCP 3. Chest CTA shows 6.5 x 4 cm heterogeneously enhancing right hepatic lobe mass nutrition diagnosis hemangioma. Advised follow-up with PCP for triple phage CT scan or MRI for further diagnosi. Outpatient follow-up s 4. End-stage renal disease: On Friday. Patient is being dialyzed today. Battery Builder consulted. On sevelamer 5. History of chronic anemia secondary to renal disease: Hemoglobin similar to baseline 13.6/39%. Repeat H&H 12.1/34.8% 6. DM type I- Continue insulin pump: Patient states he is on the transplant list for kidney and pancreas transplant. Electrolytes in the settable limit. Bicarb 21. Anion gap elevated 27 but anion gap and bicarb may be lab error because of problem in lab analyzer. A1c 7.2%. 7. Other comorbidities include secondary hyperparathyroidism related to ESRD, CAD, dyslipidemia and vitamin D deficiency: DVT prophylaxis - Subcu heparin 3 times daily CODE STATUS - Full code Medications at Discharge Home Medications blood sugar diagnostic (FreeStyle Lite Strips) #100 ea 10/08/21 lancing device with lancets kit ([employer] Plus Lancing Device kit) #100 ea 11/26/21 pen needle, diabetic 32 gauge x 5/32 (BD Ultra-Fine Carol Pen Needle) #150 ea 02/26/22 aspirin 81 mg tablet,delayed release 81 mg PO BREAKFAST #90 tabs 02/25/24 clopidogrel 75 mg tablet 75 mg PO DAILY #90 tabs 02/25/24 insulin aspart U-100 100 unit/mL subcutaneous solution (Novolog U-100 Insulin aspart) 80 unit (0.8 mL) continuous subcutaneous infusion .continuous #72 mL 02/25/24 metoprolol succinate 25 mg tablet,extended release 24 hr 25 mg PO DAILY #90 tabs 02/25/24 rosuvastatin 10 mg tablet 10 mg PO DAILY #90 tabs 02/25/24 insulin syringe-needle U-100 0.3 mL 31 gauge x 5/16 (BD Insulin Syringe Ultra-Fine) #100 ea 03/30/24 pen needle, diabetic 32 gauge x 5/32 (BD Ultra-Fine Carol Pen Needle) #50 ea 03/30/24 blood-glucose meter,continuous (Dexcom G6 Protection Analyst) #1 ea 04/01/24 insulin pump cart,auto,BT,G6/7 (Omnipod 5 G6-G7 Pods (Gen 5) subcutaneous cartridge) #30 ea 04/01/24 sevelamer carbonate 800 mg tablet 800 mg PO DAILY 06/18/24 blood-glucose sensor (Dexcom G6 Sensor device) #9 ea 07/23/24 blood-glucose transmitter (Dexcom G6 Transmitter device) #1 ea 07/23/24 cholecalciferol (vitamin D3) 50 mcg (2,000 unit) capsule 150 mcg PO MOWEFR 07/28/24 loratadine 5 mg-pseudoephedrine ER 120 mg tablet,extended release,12hr (Claritin-D 12 Hour) 1 tab PO Q12H 08/05/24 amlodipine 5 mg tablet 10 mg (2 x 5 mg) PO DAILY #90 tabs 08/11/24 Physical Exam Narrative Seen and examined Patient had mild nausea/one-time small vomiting/dry gagging after completion of dialysis yesterday. Then he complained of back pain/scapular pain with radiation to front of chest pain. He denied shortness of breath. He had 1 stent in LAD during last RI in December 2023 Physical exam: General: Alert, Oriented x3, Cooperative HEENT: Atraumatic, PERRLA, EOMI, Normocephalic. Oral: No Gingival or Mucosal Lesions/ Ulcerations Neck: Supple, No JVD, Negative Carotid Bruits Chest wall/Lungs: Tunneled dialysis catheter in upper right chest. Air entry diminished in bilateral lung bases. No crepitation/rhonchi Cardiovascular: Regular rate and rhythm, Normal S1,S2, No M/G/R Abdomen: Bowel Sounds Present, Soft, Non Tender, Non-Distended : No dysuria. No renal angle tenderness. No suprapubic tenderness. Extremities: No edema, Capillary Refill Less than 3 Seconds Skin: No rashes, No breakdown Musculoskeletal: No Tenderness to Palpation of Joints or Extremities Neurological: Cranial nerves II-XII grossly intact, DTR 2+/4. No acute focal neurological deficit. Psych/Mental Status: Normal Affect, Appropriate. Weight / BMI Weight Weight: 194 lb 14.218 oz Body Mass Index (BMI) 27.1 ABG / Lab / Microbiology Data 08/11/24 05:26 08/11/24 05:26 Laboratory: Laboratory Results - last 24 hr 08/10/24 19:40: WBC 11.5 H, RBC 4.42 L, Hgb 13.6, Hct 39.0 L, MCV 88.2, MCH 30.8, MCHC 34.9, RDW Std Deviation 41.7, RDW Coeff of Marcella 12.8, Plt Count 359, MPV 9.2, Immature Gran % (Auto) 0.500, Neut % (Auto) 77.5 H, Lymph % (Auto) 12.1 L, [place] % (Auto) 8.3, Eos % (Auto) 1.0, Baso % (Auto) 0.6, Absolute Neuts (auto) 8.9 H, Absolute Lymphs (auto) 1.39, Nucleated RBC % 0, Sodium 138, Potassium 4.0, Chloride 91 L, Carbon Dioxide 20.8 L, Anion Gap 26 H, BUN 48 H, Creatinine 6.57 H, Estim Creat Clear Calc 15.60 L, Est GFR (MDRD) Non-Af 10 L, BUN/Creatinine Ratio 7.3 L, Glucose 118 H, Calcium 11.0, Troponin T High Sens 211 H* 08/10/24 19:46: PT 12.7, INR 0.9, APTT 24.5 08/10/24 21:35: Troponin T Hi Sens 2 Hr 193 H* 08/10/24 23:40: Troponin T Hi Sens 4Hr 208 H*, Lipase 25 08/11/24 05:26: WBC 10.9, RBC 3.87 L, Hgb 12.1 L, Hct 34.8 L, MCV 89.9, MCH 31.3, MCHC 34.8, RDW Std Deviation 42.2, RDW Coeff of Marcella 13.0, Plt Count 302, MPV 9.4, Immature Gran % (Auto) 0.400, Neut % (Auto) 75.1 H, Lymph % (Auto) 13.4 L, [place] % (Auto) 9.6, Eos % (Auto) 0.8, Baso % (Auto) 0.7, Absolute Neuts (auto) 8.2 H, Absolute Lymphs (auto) 1.47, Nucleated RBC % 0, Sodium 136, Potassium 4.4, Chloride 89 L, Carbon Dioxide 20.8 L, Anion Gap 27 H, BUN 56 H, Creatinine 7.33 H, Estim Creat Clear Calc 13.98 L, Est GFR (MDRD) Non-Af 9 L, BUN/Creatinine Ratio 7.7 L, Glucose 183 H, Hemoglobin A1c 7.2 H, Calcium 9.6, Phosphorus 6.8 H, Magnesium 2.6 H, Total Bilirubin 0.38, AST 18, ALT 10, Alkaline Phosphatase 81, Total Protein 7.1, Albumin 4.3, Globulin 2.7, Albumin/Globulin Ratio 1.6, Triglycerides 146, Cholesterol 145, LDL Cholesterol, Calc 61, VLDL Cholesterol 29, HDL Cholesterol 55, Cholesterol/HDL Ratio 2.65 Radiography Diagnostic Testing: Radiology Impression Chest X-Ray 08/10/24 20:05 IMPRESSION: No acute cardiopulmonary abnormality. Reading Location: [id number] Chest CTA 08/10/24 21:35 IMPRESSION: No evidence of pulmonary embolism or acute findings in the thorax. 6.5 x 4.7 cm right hepatic lobe mass. Differential considerations include a hemangioma. Recommend further evaluation with CT or MRI liver protocol. Reading [facility] Instructions Discharge Diet: Low fat / Low cholesterol, 1800 Calorie Control Diet and 2000 mg Sodium Diet Weight Bearing Status: Weight bearing as tolerated Call your doctor if you observe: Fever of 101 or Higher, Coldness, Increased Pain, Numbness or Tingling, Change in Color, Inability to urinate, Inability to have a bowel movement, Shortness of breath, Dizziness, Fainting spells, Swelling in the ankles, Chest pain, Prolonged hiccupping, Increased palpitations (irregular heartbeat) and Calf discomfort DC O2, CPAP, BIPAP Needs Home O2 Discharge instructions: No When: IN 2 WEEKS Meaningful Use Info Meaningful Use Meaningful Use Diagnoses (Choose all that apply): None applicable Ischemic Stroke Statin Dosing Therapy Reference: STATIN DOSE THERAPY REFERENCE: * Patients > 75 years receive moderate or high dose statin therapy. * Patients 75 years or YOUNGER should receive HIGH intensity statin dose unless contraindicated. You will be required to document reason for non-treatment if statin daily dose does not meet guidelines. HIGH DOSE STATIN THERAPY DAILY Atorvastatin > than or = to 40 mg Rosuvastatin > than or = to 20 mg Amlodipine + Atorvastatin > than or = to 2.5/40 mg Ezetimibe + Simvastatin 10/80 mg Simvastatin 80mg Discharge Plan Admission Admit Date/Time: 08/10/24 23:09 Primary Reason for Your Visit: Atypical chest pain. ACS ruled out Attending Provider: Louis Koehler Primary Care Provider: Kristal Luke Consulting Providers: Eugenia London; Daisy Diaz Discharge Orders/Prescriptions Prescriptions: Continued (DME) FreeStyle Lite Strips Strip See Rx Instructions .Route Qty: 100 6RF Rx Instructions: 3x/day clopidogrel 75 mg tablet 75 mg PO DAILY Qty: 90 3RF metoprolol succinate 25 mg tablet extended release 24 hr 25 mg PO DAILY Qty: 90 3RF aspirin 81 mg tablet,delayed release (DR/EC) 81 mg PO BREAKFAST Qty: 90 3RF insulin aspart U-100 [Novolog U-100 Insulin aspart] 100 unit/mL solution 80 unit continuous subcutaneous infusion .continuous Qty: 72 1RF rosuvastatin 10 mg tablet 10 mg PO DAILY Qty: 90 1RF cholecalciferol (vitamin D3) 50 mcg (2,000 unit) capsule 150 mcg PO MOWEFR sevelamer carbonate 800 mg tablet 800 mg PO DAILY Rx Instructions: must administer with a meal/food Claritin-D 12 Hour 5-120 mg tablet extended release 12 hr 1 tab PO Q12H (DME) lancing device with lancets [[employer] Delica Plus Lanc Dev] Kit See Rx Instructions .Route Qty: 100 1RF Rx Instructions: 4x/day (DME) pen needle, diabetic [BD Ultra-Fine Carol Pen Needle] 32 gauge x 5/32 needle See Rx Instructions .ROUTE .MEDSUPPLY Qty: 150 5RF Rx Instructions: 4 times daily (DME) pen needle, diabetic [BD Ultra-Fine Carol Pen Needle] 32 gauge x 5/32 needle See Rx Instructions .ROUTE .MEDSUPPLY Qty: 50 0RF Rx Instructions: daily (DME) insulin syringe-needle U-100 [BD Insulin Syringe Ultra-Fine] 0.3 mL 31 gauge x 5/16 syringe See Rx Instructions .Route Qty: 100 1RF Rx Instructions: tid (DME) Dexcom G6 Protection Analyst Misc See Rx Instructions .Route Qty: 1 0RF Rx Instructions: As directed (DME) Omnipod 5 G6-G7 Pods (Gen 5) Cartridge See Rx Instructions .Route Qty: 30 1RF Rx Instructions: change every 3 days (DME) Dexcom G6 Sensor Device See Rx Instructions .Route Qty: 9 1RF Rx Instructions: 1 sensor q 10 days (DME) Dexcom G6 Transmitter Device See Rx Instructions .Route Qty: 1 1RF Rx Instructions: 1 q 90 days Changed amlodipine 5 mg tablet 10 mg PO DAILY Qty: 90 3RF Referrals / Follow Up: Self,Naila Tan [Emergency Nurse] - Kristal Luke MD [Primary Care Provider] - Daisy Diaz MD [Med Staff - Consulting] - Within 1 Month Disposition Disposition (needs filled in before D/C Order can be placed): Home, Self Care Charges/Coding Visit Charges Inpatient E&M: 00870 Disch Hosp >30min
[2024-08-11] MEDS: Metoprolol(XL)Succ 25 MG Tablet PO (15:07)
[2024-08-11] MEDS: SEVELAMER CARBONATE 800 MG TABLET PO (15:07)
[2024-08-11] MEDS: hydrALAZINE 20 MG/ML Vial 10 MG IV (15:11)
--- NOTE | 2024-08-11 15:16 | PHA.DC.MR.R ---
Pharmacy ID Med Reconciliation Pharmacy Service has performed discharge medication reconciliation for this patient. The patient's discharge medication list was reviewed for discrepancies and discrepancies were resolved. Medications at Discharge Home Medications blood sugar diagnostic (FreeStyle Lite Strips) #100 ea 10/08/21 lancing device with lancets kit (Light Extraction Delica Plus Lancing Device kit) #100 ea 11/26/21 pen needle, diabetic 32 gauge x 5/32 (BD Ultra-Fine Carol Pen Needle) #150 ea 02/26/22 aspirin 81 mg tablet,delayed release 81 mg PO BREAKFAST #90 tabs 02/25/24 clopidogrel 75 mg tablet 75 mg PO DAILY #90 tabs 02/25/24 insulin aspart U-100 100 unit/mL subcutaneous solution (Novolog U-100 Insulin aspart) 80 unit (0.8 mL) continuous subcutaneous infusion .continuous #72 mL 02/25/24 metoprolol succinate 25 mg tablet,extended release 24 hr 25 mg PO DAILY #90 tabs 02/25/24 rosuvastatin 10 mg tablet 10 mg PO DAILY #90 tabs 02/25/24 insulin syringe-needle U-100 0.3 mL 31 gauge x 5/16 (BD Insulin Syringe Ultra-Fine) #100 ea 03/30/24 pen needle, diabetic 32 gauge x 5/32 (BD Ultra-Fine Carol Pen Needle) #50 ea 03/30/24 blood-glucose meter,continuous (Dexcom G6 Glass Setter) #1 ea 04/01/24 insulin pump cart,auto,BT,G6/7 (Omnipod 5 G6-G7 Pods (Gen 5) subcutaneous cartridge) #30 ea 04/01/24 sevelamer carbonate 800 mg tablet 800 mg PO DAILY 06/18/24 blood-glucose sensor (Dexcom G6 Sensor device) #9 ea 07/23/24 blood-glucose transmitter (Dexcom G6 Transmitter device) #1 ea 07/23/24 cholecalciferol (vitamin D3) 50 mcg (2,000 unit) capsule 150 mcg PO MOWEFR 07/28/24 loratadine 5 mg-pseudoephedrine ER 120 mg tablet,extended release,12hr (Claritin-D 12 Hour) 1 tab PO Q12H 08/05/24 amlodipine 5 mg tablet 10 mg (2 x 5 mg) PO DAILY #90 tabs 08/11/24
--- NOTE | 2024-08-11 15:58 | CASEMGMT ---
Patient has order for discharge. RN CM in to discuss needs at discharge. Patient denies needs or help at discharge. Patient had no further questions or concerns.
== END 2024-08-11 14:29 | disposition home or self-care (01) ==
LOC: ED 19:46 → PCU 08-11 00:08
PROVIDERS: Admitting Provider Internal Medicine; Emergency Provider Emergency Medicine; PCP Internal Medicine; Visit Provider Internal Medicine
DX: R07.9 Chest pain, unspecified (principal); I13.2 Hypertensive heart and chronic kidney disease with heart failure and with stage 5 chronic kidney disease, or end stage renal disease; N18.6 End stage renal disease; I50.9 Heart failure, unspecified; E10.22 Type 1 diabetes mellitus with diabetic chronic kidney disease; Z79.4 Long term (current) use of insulin; I25.10 Atherosclerotic heart disease of native coronary artery without angina pectoris; D18.03 Hemangioma of intra-abdominal structures; R10.13 Epigastric pain; E78.00 Pure hypercholesterolemia, unspecified; R11.2 Nausea with vomiting, unspecified; Z76.82 Awaiting organ transplant status; R79.89 Other specified abnormal findings of blood chemistry; E21.3 Hyperparathyroidism, unspecified; Z96.41 Presence of insulin pump (external) (internal); Z99.2 Dependence on renal dialysis; Z79.02 Long term (current) use of antithrombotics/antiplatelets; Z79.82 Long term (current) use of aspirin; I25.2 Old myocardial infarction; Z95.5 Presence of coronary angioplasty implant and graft
CPT/HCPCS: 36415; 71046; 71275; 78452; 80048; 80053; 80061; 83036; 83690; 83735; 84100; 84484; 85025; 85610; 85730; 90937; 93005; 93017; 96374; 96375; 97802; 99221; 99285; A9500; Q9967; A4216; G0257; G0378; J2405; J2785

== ENCOUNTER → 2024-08-19 | Outpatient (CLI) | payer MEDICAID, SELFPAY ==
--- NOTE | 2024-08-19 10:04 | AVDS_ITS ---
Reason For Study Reason For Study: S/P branch ligation LEFT Inflow, 345.5/195.2 cm/s. Inflow, 237.8 ml/min. Anastamosis, 479.2/253.8 cm/sec. Anastamosis, 1499 ml/min. Prox graft, 84.2/46.9 cm/sec. Prox graft, 498.4 ml/min. Mid graft, 92.9/61 cm/sec. Mid graft, 552.8 ml/min. Distal graft, 104/69.6 cm/sec. Distal graft, 511.1 ml/min. Outflow, 57.2/32.7 cm/sec Outflow, 74.9 ml/min Branches noted at distal graft and outflow vein. 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 Marginal flow volume and caliber. Ordering Physician: Thalia Lea Referring Physician: Kristal Luke Performed By: Lara Yanez RVT
== END | disposition home or self-care (01) ==
LOC: CVS 10:01
PROVIDERS: PCP Internal Medicine; Referring Provider Physician Assistant; Visit Provider Physician Assistant
DX: I77.0 Arteriovenous fistula, acquired (principal); T82.590A Other mechanical complication of surgically created arteriovenous fistula, initial encounter
CPT/HCPCS: 93990

== ENCOUNTER 2024-08-23 00:29 | Emergency (ER) | payer MEDICAID, SELFPAY ==
[2024-08-23] VITALS (7 sets, daily range): BP systolic 93–118; BP diastolic 64–78; PULSE 96–135; RESP 18–24; TEMP 37.3–39.5; O2SAT 98–100; BMI 26.5
--- NOTE | 2024-08-23 00:51 | EKG12_ITS ---
Test Reason : FEVER Blood Pressure : */* mmHG Vent. Rate : 126 BPM Atrial Rate : 126 BPM P-R Int : 146 ms QRS Dur : 82 ms QT Int : 312 ms P-R-T Axes : 27 16 88 degrees QTcB Int : 451 ms Sinus tachycardia T wave abnormality, consider lateral ischemia Abnormal ECG Confirmed by Lio Cross ([id number]), editorial intern ADRIANA MANJARREZ ([id number]) on 08/30/2024 1:17:14 PM Referred By: Confirmed By: Lio Cross
[2024-08-23] MEDS: 0.9% Normal Saline (1000mL) 1,000 ML 999 ML IV (01:03)
[2024-08-23] MEDS: Acetaminophen 500 MG Tablet 1000 MG PO (01:03)
[2024-08-23 01:08] LABS: Absolute Lymphocyte Count 0.36 X10^3/uL (0.83-4.51); Absolute Neutrophil Count 24.4 X10^3/uL (2.0-7.7); Basophil# 0.08 X10^3/uL; Basophil% 0.3 % (0-1); Eosinophil# 0.01 X10^3/uL; Hematocrit 33.5 % (40-54); Hemoglobin 11.9 g/dL (13.0-16.5); Lymphocyte # 0.36 X10^3/ul (0.83-4.51); Lymphocyte % 1.4 % (19-41); Mean Corp Hgb Conc 35.5 g/dL (32-36); Mean Corpuscular Hgb 31.1 pg (27.0-32.0); Mean Corpuscular Volume 87.5 fL (80-94); Mean Platelet Vol. 9.1 fl (6.2-12.0); Monocyte# 0.84 X10^3/uL; Monocyte% 3.2 % (0-10); NRBC Flagged by Analyzer 0 % (0-5); Neutrophil # 24.44 X10^3/uL (2.7-7.7); Neutrophil % 93.6 % (47-70); POSITIVE DIFFERENTIAL YES; Platelet Count 250 K/mm3 (150-450); RBC Distribution Width CV 12.6 % (11.6-14.6); RBC Distribution Width SD 39.8 fl (35.1-43.9); Red Blood Count 3.83 M/mm3 (4.6-6.2); White Blood Count 26.1 K/mm3 (4.4-11.0)
--- NOTE | 2024-08-23 01:10 | RAD_ITS ---
PROCEDURE: CHEST 1 VIEW (PORTABLE) 08/23/2024 REASON FOR EXAM: FEVER TECHNIQUE: Frontal view of the chest. AP portable COMPARISON: 08/10/2024 FINDINGS: Right-sided dialysis catheter. The lungs appear clear. Pulmonary vascularity appears within limits. No evidence of pleural effusion. The cardiac and mediastinal contours appear within limits. Visualized osseous structures appear within limits. RAD/Chest 1 View (Portable) IMPRESSION: No evidence of acute disease. Reading Location: [id number]
[2024-08-23 01:12] LABS: Differential Indicated SCAN CRITERIA MET
[2024-08-23 01:16] LABS: Bacteria 0 SEEN /hpf (None Seen); Mucous, Urine 0 SEEN /hpf (<or=2+); Red Blood Cells-Urine 0 SEEN /hpf (0-5); Squamous Epithelial Cells - UA 0 SEEN /hpf (0-5); White Blood Cells 0 SEEN /hpf (0-5)
--- NOTE | 2024-08-23 01:18 | EX.ED.DYSGE1 ---
HPI History of Present Illness Chief Complaint: Fever Informant: patient and family Narrative Narrative: 44-year-old male presenting to the emergency room for evaluation of fever and vomiting. Apparently the patient has been having some nausea and vomiting for weeks. He has GI follow-up. Tonight noted to have fever and took some ibuprofen. He has a history of type 1 diabetes as well as end-stage renal disease on dialysis. Patient denies any diarrhea. No significant cough. Family notes he has been having some mild rhinorrhea. No sore throat. No rashes. He states he generally feels weak all over. He was able to walk back from the bathroom and easily flops onto the bed without pain. [facility] Medical History Elevated troponin Insulin dependent diabetes mellitus Diabetes History of renal dialysis History of renal disease Back pain Injury of back Dietary restriction Gastric reflux Non-smoker Leg cramps Cardiology follow-up encounter History of echocardiogram History of heart attack Acute non-ST elevation myocardial infarction (NSTEMI) CKD (chronic kidney disease), stage V Congestive heart failure of unknown etiology Overweight (BMI 25.0-29.9) NSTEMI, initial episode of care Acute kidney injury superimposed on chronic kidney disease Elevated troponin Pre-op testing ESRF (end stage renal failure) Stage 4 chronic kidney disease Diabetes mellitus type 1 Insulin pump titration Presence of insulin pump CKD (chronic kidney disease) Hypertension Obesity Abscess Charcot foot due to diabetes mellitus Type 1 diabetes mellitus Acute kidney injury DKA (diabetic ketoacidoses) DM type 1 (diabetes mellitus, type 1) Home Medications ?Medication ?Instructions ?Recorded ?Last Taken ?Type blood sugar diagnostic (FreeStyle #100 ea 10/08/21 Unknown Rx Lite Strips) lancing device with lancets kit #100 ea 11/26/21 Unknown Rx (OneTouch Delica Plus Lancing Device kit) pen needle, diabetic 32 gauge x #150 ea 02/26/22 Unknown Rx (BD Ultra-Fine Carol Pen Needle) aspirin 81 mg tablet,delayed 81 mg PO BREAKFAST #90 tabs 02/25/24 08/10/24 Rx release clopidogrel 75 mg tablet 75 mg PO DAILY #90 tabs 02/25/24 08/10/24 Rx metoprolol succinate 25 mg 25 mg PO DAILY #90 tabs 02/25/24 08/10/24 Rx tablet,extended release 24 hr rosuvastatin 10 mg tablet 10 mg PO DAILY #90 tabs 02/25/24 08/10/24 Rx insulin syringe-needle U-100 0.3 #100 ea 03/30/24 Unknown Rx mL 31 gauge x 5/16 (BD Insulin Syringe Ultra-Fine) pen needle, diabetic 32 gauge x #50 ea 03/30/24 Unknown Rx 5/32 (BD Ultra-Fine Carol Pen Needle) blood-glucose,receiver stocker,cont #1 ea 04/01/24 Unknown Rx (Dexcom G6 Thrill Performer) insulin pump cart,auto,BT,G6/7 #30 ea 04/01/24 Unknown Rx (Omnipod 5 G6-G7 Pods (Gen 5) subcutaneous cartridge) sevelamer carbonate 800 mg tablet 800 mg PO DAILY 06/18/24 08/10/24 History blood-glucose sensor (Dexcom G6 #9 ea 07/23/24 Unknown Rx Sensor device) blood-glucose transmitter (Dexcom #1 ea 07/23/24 Unknown Rx G6 Transmitter device) cholecalciferol (vitamin D3) 50 150 mcg PO MOWEFR 07/28/24 08/09/24 History mcg (2,000 unit) capsule loratadine 5 mg-pseudoephedrine ER 1 tab PO Q12H 08/05/24 Unknown History 120 mg tablet,extended release,12hr (Claritin-D 12 Hour) amlodipine 5 mg tablet 10 mg (2 x 5 mg) PO DAILY #90 tabs 08/11/24 08/10/24 Rx pantoprazole 40 mg tablet,delayed 40 mg PO QDAY #90 tabs 08/17/24 Unknown Rx release sucralfate 100 mg/mL oral 10 ml PO QACHS #1,200 mL 08/17/24 Unknown Rx suspension (Carafate) insulin aspart U-100 100 unit/mL 80 unit (0.8 mL) continuous 08/20/24 Unknown Rx subcutaneous solution (Novolog subcutaneous infusion .continuous U-100 Insulin aspart) #72 mL ondansetron HCl 4 mg tablet 4 mg PO Q8 PRN nausea/vomiting 08/23/24 Unknown History Allergy/AdvReac Type Severity Reaction Status Date / Time No Known Allergies Allergy Verified 08/23/24 00:33 Family History Mother Diabetes Thyroid disorder Grandmother Diabetes Grandfather Diabetes Surgical History History of cardiac catheterization History of heart surgery Hx of surgical procedure History of coronary artery stent placement History of surgery on lower extremity Social History Smoking Status: Never smoker alcohol intake: never substance use type: does not use ROS ROS ED Constitutional Constitutional ED: Reports chills and fever(s); Denies weight loss Eyes Eyes: Denies change in vision or diplopia ENT ENT ED: Reports rhinorrhea; Denies ear pain or sore throat Cardiovascular Cardiovascular: Denies chest pain, orthopnea, palpitations or racing heartbeat Respiratory/Chest Respiratory/Chest: Denies cough, dyspnea or orthopnea Gastrointestinal Gastrointestinal: Reports nausea and vomiting; Denies abdominal pain or diarrhea Genitourinary Genitourinary ED: Denies dysuria, hematuria or urinary frequency Musculoskeletal Musculoskeletal: Denies arthralgias, myalgias or neck pain Integumentary Denies abscess or rash Neurologic Neurologic: Denies headache(s) or weakness Psychiatric Psychiatric: Denies anxiety, depression, suicidal ideation or suicidal thoughts Endocrine Endocrinology: Denies polydipsia, polyphagia or polyuria Allergic/Immunologic Allergic/Immunologic ED: Denies mouth swelling, tongue swelling or urticaria EXAM Physical Exam Const Vital Signs: 08/23/24 00:31 08/23/24 00:57 08/23/24 01:08 Temperature 103.1 F H 103.1 F H Temperature Source Oral Oral Pulse Rate 135 H 135 H Respiratory Rate 24 H 24 H Respiratory Effort Normal Non-Labored Respiratory Pattern Normal Blood Pressure 93/78 93/78 Blood Pressure Mean 83 83 Pulse Ox 100 100 Oxygen Delivery Method Room Air Room Air 08/23/24 02:00 08/23/24 03:00 Temperature 101.4 F H 99.7 F H Temperature Source Oral Oral Pulse Rate 123 H 113 H Respiratory Rate 20 H 18 Respiratory Effort Respiratory Pattern Blood Pressure 102/64 105/70 Blood Pressure Mean 76 81 Pulse Ox 98 98 Oxygen Delivery Method Room Air Room Air Positive well nourished and well developed General Appearance ED: well developed and NAD HEENT Reports normocephalic, head/scalp atraumatic and moist mucous membranes Eyes PERRL and EOMs intact bilaterally Neck no lymphadenopathy, supple and no JVD Resp normal respiratory effort and clear to auscultation bilaterally Cardio regular rate, regular rhythm and no murmurs Rate: tachycardic GI normal to inspection, nondistended, normoactive bowel sounds and non-tender Palpation: soft Back/Spine no CVA tenderness and normal ROM Extremity normal to inspection General Extremety ED: Negative for edema General Extremity: Negative for edema Neuro oriented x3 and CN's II-XII intact bilaterally Sensorium / Orientation: alert Motor Exam: strength 5/5 throughout Psych mental status grossly normal Mood & Affect: Negative for depressed or tearful Skin no rashes or lesions noted and no wounds Sepsis Attestation Sepsis Alert: Yes Sepsis Attestation: Agree w/Sepsis Date exam was performed: 08/23/24 Time exam was performed: 01:30 Possible Source of Sepsis: Unknown Sepsis Organ Dysfunction Criteria Present: Creatinine > 2.0 mg/dL and Lactic Acid > 2 mmol/L Fluid Resuscitation Fluid resuscitation indicated?: Yes Fluid Resuscitation ordered: Lesser volume fluid bolus ordered Amount of fluid ordered: 1,000 Reason for lesser fluid bolus:: Concern for fluid overload and Renal Failure Sepsis Note Date exam was performed: 08/23/24 Time exam was performed: 02:20 Sepsis Attestation: Sepsis re-evaluation was performed Response to fluids: Fluid responsive hypotension MDM MDM MDM Narrative Medical decision making narrative: Differential diagnosis includes but not limited to fever of unknown origin UTI electrolyte abnormalities pneumonia bacteremia liver dysfunction Patient's white count is 26.1 with a hemoglobin of 11.9 platelet count of 258. BMP shows a creatinine 8.87 BUN of 54 CO2 of 19 anion gap is 22 potassium 3.6 normal LFTs urinalysis is negative for infection. My independent interpretation of the chest x-ray is in no acute process. COVID influenza and RSV swabs were negative. Blood cultures were obtained. Patient received a liter of IV fluids as well as Tylenol. Additional fluids will need to be very judicious given the fact that he is a dialysis patient and concern for fluid overload. His lactic acid is noted to be elevated at 2.5. Vancomycin and Zosyn were ordered. I am told by nursing account supervisor that we do not have dialysis coverage on Friday. He is due for dialysis tomorrow. He will need to be transferred. Family would like me to try [facility] as they work in [place] and would be easier for them. Unfortunately they do not have any bed availability. I spoke with the patient and his family regarding other options that [facility] gave me including [facility] versus pia. They would like me to try [facility]. I spoke with [facility] and the patient has been accepted. History & Record Review Discussion w/independent historian: Patient and Family Additional record(s) reviewed:: Prior inpatient record, Prior ED visit and Prior labs Lab Data Attestation: I reviewed the patient's lab results. Labs: Laboratory Results - last 24 hr 08/23/24 08/23/24 08/23/24 00:55 00:57 02:09 WBC 26.1 H RBC 3.83 L Hgb 11.9 L Hct 33.5 L MCV 87.5 MCH 31.1 MCHC 35.5 RDW Std Deviation 39.8 RDW Coeff of Marcella 12.6 Plt Count 250 MPV 9.1 Immature Gran % (Auto) 1.500 H Neut % (Auto) 93.6 H Lymph % (Auto) 1.4 L Camp % (Auto) 3.2 Eos % (Auto) 0.0 Baso % (Auto) 0.3 Absolute Neuts (auto) 24.4 H Absolute Lymphs (auto) 0.36 L Nucleated RBC % 0 Differential Comment SCANNED PT 14.7 INR 1.1 APTT 28.3 Sodium 135 Potassium 3.6 Chloride 93 L Carbon Dioxide 19.1 L Anion Gap 22 H BUN 54 H Creatinine 8.87 H* Estim Creat Clear Calc 11.55 L Est GFR (MDRD) Non-Af 7 L BUN/Creatinine Ratio 6.1 L Glucose 220 H Lactic Acid 2.5 H* Calcium 10.5 Phosphorus 1.2 L* Magnesium 1.7 Total Bilirubin 0.41 AST 17 ALT 12 Alkaline Phosphatase 94 Total Protein 7.6 Albumin 4.7 Globulin 3.0 Albumin/Globulin Ratio 1.6 b-Hydroxybutyric mmol/L 1.2 Urine Color Yellow Urine Clarity Clear Urine pH 7.0 Ur Specific [place] 1.010 Urine Protein 500 H Urine Glucose (UA) 1000 H Urine Ketones Negative Urine Occult Blood 50 H Urine Nitrite Negative Urine Bilirubin Negative Urine Urobilinogen Normal Ur Leukocyte Esterase Negative Urine RBC 0 SEEN Urine WBC 0 SEEN Ur Squamous Epith Cells 0 SEEN Urine Bacteria 0 SEEN Urine Mucus 0 SEEN Radiography Diagnostic Testing: Clinical Impression(s) from Imaging Studies Chest X-Ray 08/23/24 01:10 IMPRESSION: No evidence of acute disease. Reading Location: [facility] EKG Initial EKG: Attestation: I personally reviewed and interpreted this EKG as follows: Comments: Sinus tachycardia ventricular rate of 126 bpm Management Discussion w/another healthcare provider: Transcription Coordinator (Dr Mejia ([facility])) Discharge Plan Triage Chief Complaint: Fever Other Complaint: Nausea/Vomiting ED Provider: Jan Elizalde Dx/Rx/DC Orders Clinical Impression: DM type 1 (diabetes mellitus, type 1), ESRD (end stage renal disease) on dialysis, Fever of unknown origin (FUO), Sepsis Prescriptions: No Action (DME) FreeStyle Lite Strips Strip See Rx Instructions .Route Qty: 100 6RF Rx Instructions: 3x/day clopidogrel 75 mg tablet 75 mg PO DAILY Qty: 90 3RF metoprolol succinate 25 mg tablet extended release 24 hr 25 mg PO DAILY Qty: 90 3RF aspirin 81 mg tablet,delayed release (DR/EC) 81 mg PO BREAKFAST Qty: 90 3RF rosuvastatin 10 mg tablet 10 mg PO DAILY Qty: 90 1RF cholecalciferol (vitamin D3) 50 mcg (2,000 unit) capsule 150 mcg PO MOWEFR sevelamer carbonate 800 mg tablet 800 mg PO DAILY Rx Instructions: must administer with a meal/food Claritin-D 12 Hour 5-120 mg tablet extended release 12 hr 1 tab PO Q12H sucralfate [Carafate] 100 mg/mL suspension 10 ml PO QACHS Qty: 1200 1RF pantoprazole 40 mg tablet,delayed release (DR/EC) 40 mg PO QDAY Qty: 90 1RF Rx Instructions: take once every morning on an empty stomach amlodipine 5 mg tablet 10 mg PO DAILY Qty: 90 3RF ondansetron HCl 4 mg tablet 4 mg PO Q8 PRN (Reason: nausea/vomiting) (DME) lancing device with lancets [[employer] Delica Plus Lanc Dev] Kit See Rx Instructions .Route Qty: 100 1RF Rx Instructions: 4x/day (DME) pen needle, diabetic [BD Ultra-Fine Carol Pen Needle] 32 gauge x 5/32 needle See Rx Instructions .ROUTE .MEDSUPPLY Qty: 150 5RF Rx Instructions: 4 times daily (DME) pen needle, diabetic [BD Ultra-Fine Carol Pen Needle] 32 gauge x 5/32 needle See Rx Instructions .ROUTE .MEDSUPPLY Qty: 50 0RF Rx Instructions: daily (DME) insulin syringe-needle U-100 [BD Insulin Syringe Ultra-Fine] 0.3 mL 31 gauge x 5/16 syringe See Rx Instructions .Route Qty: 100 1RF Rx Instructions: tid (DME) Dexcom G6 Thrill Performer Misc See Rx Instructions .Route Qty: 1 0RF Rx Instructions: As directed (DME) Omnipod 5 G6-G7 Pods (Gen 5) Cartridge See Rx Instructions .Route Qty: 30 1RF Rx Instructions: change every 3 days (DME) Dexcom G6 Sensor Device See Rx Instructions .Route Qty: 9 1RF Rx Instructions: 1 sensor q 10 days (DME) Dexcom G6 Transmitter Device See Rx Instructions .Route Qty: 1 1RF Rx Instructions: 1 q 90 days insulin aspart U-100 [Novolog U-100 Insulin aspart] 100 unit/mL solution 80 unit continuous subcutaneous infusion .continuous Qty: 72 1RF Primary Care Provider: Kristal Luke Referrals: Kristal Luke MD [Primary Care Provider] - Print Language: Estonian Disposition Disposition: Acute Care Hospital Discharge Location: [facility]
[2024-08-23 01:20] LABS: Glucose, Dipstick 1000 mg/dl (Normal); Ketone-Dipstick Negative (Negative); Leukocyte Esterase-Dipstick Negative /ul (Negative); Nitrite-Dipstick Negative (Negative); Occult Blood-Urine 50 /ul (Negative); Protein-Dipstick 500 mg/dl (Negative); Urine Bilirubin Dipstick Negative (Negative); Urine Urobilinogen Normal (Normal)
[2024-08-23 01:27] LABS: Color, Urine Yellow (Yellow); Urine Clarity Clear (Clear)
[2024-08-23 01:39] LABS: ALB/GLOB Ratio 1.6 RATIO (0.9-2.4); AST(SGOT) 17 U/L (<=37); Alanine Aminotransfer ALT/SGPT 12 U/L (<=46); Albumin, Serum 4.7 g/dL (3.5-5.0); Alkaline Phosphatase 94 U/L (40-129); Anion Gap 22 (5-15); BUN 54 mg/dL (4-19); BUN/Creat Ratio 6.1 RATIO (10-20); Calcium,Total 10.5 mg/dL (7.6-11.0); Carbon Dioxide 19.1 mmol/L (21.0-32.0); Chloride 93 mmol/L (98-108); Creatinine, Serum 8.87 mg/dL (0.70-1.20); EST Glomerular Filtration Rate 7 (>60); Estimated Creatinine Clearance 11.55 ml/min (50-250); Glucose 220 mg/dL (70-99); Potassium 3.6 mmol/L (3.3-5.1); Protein, Total 7.6 g/dL (5.9-8.4); Sodium Level 135 mmol/L (133-145); Total Bilirubin 0.41 mg/dL (0.00-1.30)
[2024-08-23 01:40] LABS: Lactic Acid 2.5 mmol/L (0.0-2.0)
[2024-08-23 01:54] LABS: Differential Comment SCANNED
[2024-08-23] MEDS: Ondansetron 4 MG/2 ML Vial IV (02:15)
[2024-08-23 02:43] LABS: International Normalized Ratio 1.1; Partial Thromboplast Time 28.3 Seconds (24.1-36.2); Prothrombin Time (Protime)PT. 14.7 SECONDS (11.7-14.9)
[2024-08-23 02:51] LABS: Magnesium 1.7 mg/dL (1.5-2.2); Phosphorus 1.2 mg/dL (2.7-4.5)
[2024-08-23] MEDS: Piperacil/Tazobactam 4.5 GM in 0.9% Normal Saline (100mL MB+) 100 ML IV (03:22)
[2024-08-23 03:34] LABS: BETA-HYDROXYBUTYRATE 1.2 mmol/L (0.0-0.3)
[2024-08-23] MEDS: Vancomycin HCl 2,000 MG in 0.9% Normal Saline (500mL Bag) 500 ML 250 MG IV (04:05)
[2024-08-23 05:02] LABS: Reflex Lactate? Y
[2024-08-23 06:53] LABS: Lactic Acid 1.1 mmol/L (0.0-2.0)
--- NOTE | 2024-08-23 16:03 | ED.RN ---
positive blood culture results faxed to [facility] for cont of care.
== END 2024-08-23 09:28 | disposition short-term general hospital (02) ==
PROVIDERS: Emergency Provider Emergency Medicine; PCP Internal Medicine; Visit Provider Emergency Medicine
DX: A41.9 Sepsis, unspecified organism (principal); I13.2 Hypertensive heart and chronic kidney disease with heart failure and with stage 5 chronic kidney disease, or end stage renal disease; N18.6 End stage renal disease; I50.9 Heart failure, unspecified; Z79.4 Long term (current) use of insulin; E10.22 Type 1 diabetes mellitus with diabetic chronic kidney disease; R50.9 Fever, unspecified; Z99.2 Dependence on renal dialysis; I25.2 Old myocardial infarction; Z79.82 Long term (current) use of aspirin; Z79.02 Long term (current) use of antithrombotics/antiplatelets; Z79.899 Other long term (current) drug therapy; K21.9 Gastro-esophageal reflux disease without esophagitis; Z95.5 Presence of coronary angioplasty implant and graft
CPT/HCPCS: 71045; 80053; 81001; 82010; 83605; 83735; 84100; 85025; 85610; 85730; 87040; 87077; 87086; 87088; 87149; 87186; 87631; 93005; 96361; 96365; 96366; 96368; 96375; 99285; A4216; J2405

== ENCOUNTER 2024-08-31 10:25 | Day surgery (SDC) | payer MEDICAID, SELFPAY ==
--- NOTE | 2024-08-30 12:33 | PAT.ANE_ITS ---
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 When Was Last Pacemaker Check QUESTION #4 FULL TEXT: You/Your Family Experience fever (hyperthermia) with Anesthesia Last Oral Intake Last Oral intake: Last Oral Intake NPO since Meds taken in AM with sips of water? 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 Has anyone observed you stop No 08/30/24 10:31 breathing during sleep? STOP Results Positive 08/30/24 10:31 QUESTION #5 FULL TEXT : Do you snore loudly (louder than talking or can be heard through closed doors)? 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 Specify any problems Hx of Preganancy in last 3 N/A 08/30/24 10:31 Months Nurse Filling Out Transfusion DSCHRIBER 08/30/24 10:31 & Questions: Date: 08/30/24 08/30/24 10:31 Time: 10:34 08/30/24 10:31 Patient unable to answer at this time (ie. 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 Hx Now No 08/30/24 10:31 Gestational Age (in weeks): EDC: Hx Hx Para Hx Section SAB No 08/30/24 10:31 PFS Medical History (Updated 08/30/24 @ 10:46 by Lola Zavaleta) Bloodstream infection Hypertension High cholesterol Restless legs Difficulty swallowing History of stress test Elevated troponin Insulin dependent diabetes mellitus History of renal dialysis History of renal disease Back pain Injury of back Dietary restriction Gastric reflux Non-smoker Leg cramps Cardiology follow-up encounter History of echocardiogram History of heart attack Acute non-ST elevation myocardial infarction (NSTEMI) CKD (chronic kidney disease), stage V Congestive heart failure of unknown etiology Overweight (BMI 25.0-29.9) NSTEMI, initial episode of care Acute kidney injury superimposed on chronic kidney disease Elevated troponin Pre-op testing ESRF (end stage renal failure) Stage 4 chronic kidney disease Diabetes mellitus type 1 Insulin pump titration Presence of insulin pump CKD (chronic kidney disease) Hypertension Charcot foot due to diabetes mellitus Home Medications ?Medication ?Instructions ?Recorded ?Last Taken ?Type blood sugar diagnostic (FreeStyle #100 ea 10/08/21 Unk nown Rx Lite Strips) lancing device with lancets kit #100 ea 11/26/21 Unkno wn Rx (OneTouch Delica Plus Lancing Device kit) pen needle, diabetic 32 gauge x #150 ea 02/26/22 Unkno wn Rx 5/32 (BD Ultra-Fine Carol Pen Needle) aspirin 81 mg tablet,delayed 81 mg PO BREAKFAST #90 ta bs 02/25/24 08/10/24 Rx release clopidogrel 75 mg tablet 75 mg PO DAILY #90 tabs 01/3008/10/24 Rx metoprolol succinate 25 mg 25 mg PO DAILY #90 tabs 08/10/24 Rx tablet,extended release 24 hr rosuvastatin 10 mg tablet 10 mg PO DAILY #90 tabs 01/3008/10/24 Rx insulin syringe-needle U-100 0.3 #100 ea 03/30/24 Unkn own Rx mL 31 gauge x 5/16 (BD Insulin Syringe Ultra-Fine) pen needle, diabetic 32 gauge x #50 ea 03/30/24 Unknow n Rx 5/32 (BD Ultra-Fine Carol Pen Needle) blood-glucose,drainage inspector,cont #1 ea 04/01/24 Unknown Rx (Dexcom G6 [place]) insulin pump cart,auto,BT,G6/7 #30 ea 04/01/24 Unknown Rx (Omnipod 5 G6-G7 Pods (Gen 5) subcutaneous cartridge) sevelamer carbonate 800 mg tablet 800 mg PO DAILY 05/3008/10/24 History blood-glucose sensor (Dexcom G6 #9 ea 07/23/24 Unknown Rx Sensor device) blood-glucose transmitter (Dexcom #1 ea 07/23/24 Unkno wn Rx G6 Transmitter device) cholecalciferol (vitamin D3) 50 150 mcg PO MOWEFR 07/0108/09/24 History mcg (2,000 unit) capsule loratadine 5 mg-pseudoephedrine ER 1 tab PO Q12H PRN s inus symptoms 08/05/24 Unknown History 120 mg tablet,extended release,12hr (Claritin-D 12 Hour) amlodipine 5 mg tablet 10 mg (2 x 5 mg) PO DAILY #9 0 tabs 08/11/24 08/10/24 Rx pantoprazole 40 mg tablet,delayed 40 mg PO QDAY #90 ta bs 08/17/24 Unknown Rx release sucralfate 100 mg/mL oral 10 ml PO QACHS #1,200 mL Unknown Rx suspension (Carafate) insulin aspart U-100 100 unit/mL 80 unit (0.8 mL) cont inuous 08/20/24 Unknown Rx subcutaneous solution (Novolog subcutaneous infusion . continuous U-100 Insulin aspart) #72 mL Allergy/AdvReac Type Severity Reaction Status Date / Time No Known Allergies Allergy Verified 08/30/24 10:29 Family History Mother Diabetes Thyroid disorder Grandmother Diabetes Grandfather Diabetes Surgical History (Updated 08/30/24 @ 10:42 by Lola Zavaleta) Hx of surgical procedure History of cardiac catheterization Hx of surgical procedure History of coronary artery stent placement History of surgery on lower extremity Social History Smoking Status: Never smoker alcohol intake: never substance use type: does not use Audit: Pertinent Findings HISTORY of Pertinent Findings History of Pertinent Findings: Underwent cardiac catheterization which showed multivessel diffuse atherosclerosis And he underwent successful PCI of mid LAD using drug-eluting stent. (Dec 2023) Pertinent Findings EKG Perinent findings: EKG 07/2024: SR with PACs, prolonged QTc (497 ms) Echo (EF%) pertinent findings: 12/2023: EF 60%, mild mitral valve insuffiency Heart catheterization pertinent findings: Coronary angiography; 1. Left main is normal angiographically calcified with extension of calcification into LAD. The left main coronary artery bifurcates into LAD and left circumflex 2. The left anterior descending artery had diffuse atherosclerosis of around 70% involving the mid LAD after the first septal branch. There was a fairly diagonal had diffuse atherosclerosis of around 70 the second diagonal also is a small but have a diffuse atherosclerosis 70-80. The LAD in the distal portion has no significant atherosclerosis 3. The left circumflex is moderate in size second OM branch had mid and the distal diffuse atherosclerosis of around 60% 4. RCA is large dominant with distal RCA had around 50% The bifurcation of the PDA and the posterolateral branch has a diffuse atherosclerosis. CAD in conclusion this patient has with diabetes renal insufficiency diffuse coronary artery atherosclerosis with successful PCI of the culprit lesion for non-ST elevation MA which is a diffuse left anterior descending artery. Recommendation Anesthesia Recommendation Anesthesia recommendation: OPTIMIZED for anesthesia
[2024-08-31] VITALS (9 sets, daily range): BP systolic 105–156; BP diastolic 53–92; PULSE 72–85; RESP 16; TEMP 36.1–36.6; O2SAT 94–100; BMI 27.0
[2024-08-31] MEDS: 0.9% Normal Saline (500mL Bag) 500 ML 15 ML IV (10:43)
--- NOTE | 2024-08-31 10:56 | PCM.PRE.AN2 ---
ASA Classification* ASA Classification ASA Classification: 3 Assessment & Plan Anesthesia* Anesthesia Assessment Anesthesia Assessment: Discussed sedation and/or anesthesia options, risks, benefits, and alternatives with patient/parents/legal guardian/POA. Questions invited. The patient/parents/legal guardian/POA seems to understand and agrees to proceed with anesthesia plan. Reviewed the physical assessment, medical history, allergy history and patient home medications list prior to surgery/procedure/anesthetic and documented any changes. Performed airway and anesthesia risk assessments. Anesthesia Type Anesthesia Type: MAC History Source History Obtained from:: Patient and Chart Anesthesia Focused Assessment* Temperature: 97.9 F Pulse Rate: 85 Blood Pressure: 156/92 Respiratory Rate: 16 Pulse Ox: 100 Oxygen Delivery Method: Room Air Airway Assessment Mouth opens: >3 cm Mallampati Score: II Teeth Condition: Chipped/Broken (right lower molar) Neck Range of motion (ROM): Full ROM Focused Labs Anesthesia Preop lab: CBC WBC 26.1 K/mm3 (4.4-11.0) H 08/23/24 00:57 08/23/24 RBC 3.83 M/mm3 (4.6-6.2) L 08/23/24 00:57 08/23/24 Hgb 11.9 g/dL (13.0-16.5) L 08/23/24 00:57 08/23/24 Hct 33.5 % (40-54) L 08/23/24 00:57 08/23/24 Plt Count 250 K/mm3 (150-450) 08/23/24 00:57 08/23/24 CHEMISTRY Potassium 3.6 mmol/L (3.3-5.1) 08/23/24 00:57 08/23/24 Sodium 135 mmol/L (133-145) 08/23/24 00:57 08/23/24 Magnesium 1.7 mg/dL (1.5-2.2) 08/23/24 00:57 08/23/24 Phosphorus 1.2 mg/dL (2.7-4.5) L* 08/23/24 00:57 08/23/24 BUN 54 mg/dL (4-19) H 08/23/24 00:57 08/23/24 Creatinine 8.87 mg/dL (0.70-1.20) H* 08/23/24 00:57 08/23/24 Glucose 220 mg/dL (70-99) H 08/23/24 00:57 08/23/24 POC Glucose 188 mg/dL (74-106) H 04/20/24 11:00 04/20/24 TSH 1.100 uIU/mL (0.358-3.740) 01/23/24 01:40 01/23/24 COAG PT 14.7 SECONDS (11.7-14.9) 08/23/24 02:09 08/23/24 Pre-Assessment Diagnosis/Proposed Procedure Planned Operative Procedure(s): EGD Anesthesia History 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 Any Problems With Anesthesia No 08/30/24 10:31 Cholinesterase deficiency No 08/30/24 10:31 You/Your Family Experience No 08/30/24 10:31 fever (hyperthermia) with Relationship Recent Exposure to Contagious No 08/31/24 10:38 Disease Does patient have nerve No 08/30/24 10:31 stimulator Patient instructed to have device shut off --Does patient have Pacemaker No 08/31/24 10:38 or ICD? When Was Last Pacemaker Check QUESTION #4 FULL TEXT: You/Your Family Experience fever (hyperthermia) with Anesthesia Last Oral Intake Last Oral intake: Last Oral Intake NPO since 23:00 08/31/24 10:38 Meds taken in AM with sips of No 08/31/24 10:38 water? 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 Female No 08/30/24 10:31 HX of Motion Sickness No 08/30/24 10:31 HX of N/V After Surgery No 08/30/24 10:31 Non-Smoker Yes 08/30/24 10:31 Duration of Surgery greater No 08/30/24 10:31 than 60 minutes Number of Risk Factors 1 08/30/24 10:31 PONV Score Low Risk 08/30/24 10:31 Height & Weight Height & Weight: Anesthesia: Height & Weight Height 5 ft 11 in 08/31/24 10:38 Weight: 88 kg 08/31/24 10:38 Body Mass Index (BMI) 27.0 08/31/24 10:38 Respiratory Assessment Respiratory Assessment - 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 Has anyone observed you stop No 08/30/24 10:31 breathing during sleep? STOP Results Positive 08/30/24 10:31 QUESTION #5 FULL TEXT : Do you snore loudly (louder than talking or can be heard through closed doors)? 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 Specify any problems Hx of Preganancy in last 3 N/A 08/30/24 10:31 Months Nurse Filling Out Transfusion DSCHRIBER 08/30/24 10:31 & Questions: Date: 08/30/24 08/30/24 10:31 Time: 10:34 08/30/24 10:31 Patient unable to answer at this time (ie. 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 operator Hx Now No 08/30/24 10:31 Gestational Age (in weeks): EDC: Hx Hx Para Hx Section SAB No 08/30/24 10:31 Active Medications Active Medications: Current Medications Generic Name Dose Route Start Last Admin Trade Name Byron PRN Reason Stop Dose Admin Sodium Chloride 500 mls @ 0 mls/hr 08/31/24 10:30 08/31/24 10:43 IV 15 mls/hr .Q0M CHILO Administration KVO PFSH Medical History Bloodstream infection Hypertension High cholesterol Restless legs Difficulty swallowing History of stress test Elevated troponin Insulin dependent diabetes mellitus History of renal dialysis History of renal disease Back pain Injury of back Dietary restriction Gastric reflux Non-smoker Leg cramps Cardiology follow-up encounter History of echocardiogram History of heart attack Acute non-ST elevation myocardial infarction (NSTEMI) CKD (chronic kidney disease), stage V Congestive heart failure of unknown etiology Overweight (BMI 25.0-29.9) NSTEMI, initial episode of care Acute kidney injury superimposed on chronic kidney disease Elevated troponin Pre-op testing ESRF (end stage renal failure) Stage 4 chronic kidney disease Diabetes mellitus type 1 Insulin pump titration Presence of insulin pump CKD (chronic kidney disease) Hypertension Charcot foot due to diabetes mellitus Home Medications ?Medication ?Instructions ?Recorded ?Last Taken ?Type blood sugar diagnostic (FreeStyle #100 ea 10/08/21 Unknown Rx Lite Strips) lancing device with lancets kit #100 ea 11/26/21 Unknown Rx (OneTouch Delica Plus Lancing Device kit) pen needle, diabetic 32 gauge x #150 ea 02/26/22 Unknown Rx 32 (BD Ultra-Fine Carol Pen Needle) aspirin 81 mg tablet,delayed 81 mg PO BREAKFAST #90 tabs 02/25/24 08/30/24 Rx release clopidogrel 75 mg tablet 75 mg PO DAILY #90 tabs 02/25/24 08/30/24 Rx metoprolol succinate 25 mg 25 mg PO DAILY #90 tabs 02/25/24 08/10/24 Rx tablet,extended release 24 hr rosuvastatin 10 mg tablet 10 mg PO DAILY #90 tabs 02/25/24 08/10/24 Rx insulin syringe-needle U-100 0.3 #100 ea 03/30/24 Unknown Rx mL 31 gauge x 5/16 (BD Insulin Syringe Ultra-Fine) pen needle, diabetic 32 gauge x #50 ea 03/30/24 Unknown Rx 5/32 (BD Ultra-Fine Carol Pen Needle) blood-glucose,trigonometry tutor,cont #1 ea 04/01/24 Unknown Rx (Dexcom G6 Base Filler) insulin pump cart,auto,BT,G6/7 #30 ea 04/01/24 Unknown Rx (Omnipod 5 G6-G7 Pods (Gen 5) subcutaneous cartridge) sevelamer carbonate 800 mg tablet 800 mg PO DAILY 06/18/24 08/10/24 History blood-glucose sensor (Dexcom G6 #9 ea 07/23/24 Unknown Rx Sensor device) blood-glucose transmitter (Dexcom #1 ea 07/23/24 Unknown Rx G6 Transmitter device) cholecalciferol (vitamin D3) 50 150 mcg PO MOWEFR 07/28/24 08/09/24 History mcg (2,000 unit) capsule loratadine 5 mg-pseudoephedrine ER 1 tab PO Q12H PRN sinus symptoms 08/05/24 Unknown History 120 mg tablet,extended release,12hr (Claritin-D 12 Hour) amlodipine 5 mg tablet 10 mg (2 x 5 mg) PO DAILY #90 tabs 08/11/24 08/10/24 Rx pantoprazole 40 mg tablet,delayed 40 mg PO QDAY #90 tabs 08/17/24 Unknown Rx release sucralfate 100 mg/mL oral 10 ml PO QACHS #1,200 mL 08/17/24 Unknown Rx suspension (Carafate) insulin aspart U-100 100 unit/mL 80 unit (0.8 mL) continuous 08/20/24 Unknown Rx subcutaneous solution (Novolog subcutaneous infusion .continuous U-100 Insulin aspart) #72 mL Allergy/AdvReac Type Severity Reaction Status Date / Time No Known Allergies Allergy Verified 08/31/24 10:36 Family History Mother Diabetes Thyroid disorder Grandmother Diabetes Grandfather Diabetes Surgical History Hx of surgical procedure History of cardiac catheterization Hx of surgical procedure History of coronary artery stent placement History of surgery on lower extremity Social History Smoking Status: Never smoker alcohol intake: never substance use type: does not use Review of Systems (Anesthesia) ROS Narrative System reviewed and no additional complaints, except as documented.
--- NOTE | 2024-08-31 11:00 | EGD_PTH ---
PATIENT: LAURIE GONZALES LOC: EN U#:[id number] AGE/SX: 44/M ROOM: RE08/31/[address]: Dr. Bao Angulo DO : 1980 BED: DIS: 08/31/2024 SPEC #: [id number] RECD: 08/31/24 13:17 STATUS: KELSIE KISHAN #: [id number] ANITRA: 08/31/24 11:[address]: Bao Angulo DEPT: SURGICAL PATHOLOGY RECD BY: Maulik Hedrick ENTERED: 08/31/24 13:43 SP TYPE: EGD BIOPSY LUCAS DR: Dr. Kristal Luke MD Tissues: A - Esophagus, NOS Procedures: Immunohistochemical Stains Special Stain Group I Surgery Specimen Level IV GMS Stain (control) IHC Stain ADDITIONAL HEADER OPERATION: EGD with biopsies and dilation PRE-OP DIAGNOSIS: Dysphagia, odynophagia TISSUE SUBMITTED: A- Distal esophagus biopsy MICROSCOPIC DIAGNOSIS A. Esophagus, distal, biopsy: Squamous mucosa with reactive changes. Detached fragment of fibrinopurulent debris, suggestive of ulcer. Columnar mucosa, negative for goblet cell metaplasia. PASD is negative for fungal organisms. IHC is negative for HSV (human simplex virus types I&II) and CMV (cytomegalovirus). MICROSCOPIC DESCRIPTION Slides are reviewed. All matched controls reacted appropriately. These tests were developed and their performance characteristics determined by [facility]. They may not have been cleared or approved by the U.S. Food and Drug Administration. The FDA has determined that such clearance or approval is not necessary. The above immunohistochemical/dualISH markers are ordered and reviewed by the Pathologist. GROSS DESCRIPTION A. Received in formalin in a container labeled with the patient's name, date of , and distal esophagus biopsy are multiple cordero-pink fragments of mucosal tissue measuring 0.8 x 0.5 x 0.3 cm in aggregate. Submitted in toto in A1. [facility] 08-31-2024 CPT:[id number]
--- NOTE | 2024-08-31 11:05 | PCM.HP.STD ---
HPI - General General Date of Admission: 08/31/24 Date of Service: 08/31/24 Chief Complaint: dysphagia HPI Narrative LAURIE GONZALES, is a 44 M who presentsChief Complaint: pain with swallowing HD - M/W/F - renal failure due to DM and HTN - 1st episode was after HD a week ago for crushing chest pain and intractable emesis - Friday when to ED for crushing chest pain - ACS ruled out and treated with phenergan and GI coktail - reports symptoms resolved during admission - ate a cheeseburger before discharge without issue - the day following admission he developed - water going down ok - unable to take fluid off in HD due to dry weight is too low - liquids and solids - HB - intermittent PFSH Medical History Bloodstream infection Hypertension High cholesterol Restless legs Difficulty swallowing History of stress test Elevated troponin Insulin dependent diabetes mellitus History of renal dialysis History of renal disease Back pain Injury of back Dietary restriction Gastric reflux Non-smoker Leg cramps Cardiology follow-up encounter History of echocardiogram History of heart attack Acute non-ST elevation myocardial infarction (NSTEMI) CKD (chronic kidney disease), stage V Congestive heart failure of unknown etiology Overweight (BMI 25.0-29.9) NSTEMI, initial episode of care Acute kidney injury superimposed on chronic kidney disease Elevated troponin Pre-op testing ESRF (end stage renal failure) Stage 4 chronic kidney disease Diabetes mellitus type 1 Insulin pump titration Presence of insulin pump CKD (chronic kidney disease) Hypertension Charcot foot due to diabetes mellitus Home Medications ?Medication ?Instructions ?Recorded ?Last Taken ?Type blood sugar diagnostic (FreeStyle #100 ea 10/08/21 Unknown Rx Lite Strips) lancing device with lancets kit #100 ea 11/26/21 Unknown Rx (OneTouch Delica Plus Lancing Device kit) pen needle, diabetic 32 gauge x #150 ea 02/26/22 Unknown Rx (BD Ultra-Fine Carol Pen Needle) aspirin 81 mg tablet,delayed 81 mg PO BREAKFAST #90 tabs 02/25/24 08/30/24 Rx release clopidogrel 75 mg tablet 75 mg PO DAILY #90 tabs 02/25/24 08/30/24 Rx metoprolol succinate 25 mg 25 mg PO DAILY #90 tabs 02/25/24 08/10/24 Rx tablet,extended release 24 hr rosuvastatin 10 mg tablet 10 mg PO DAILY #90 tabs 02/25/24 08/10/24 Rx insulin syringe-needle U-100 0.3 #100 ea 03/30/24 Unknown Rx mL 31 gauge x 5/16 (BD Insulin Syringe Ultra-Fine) pen needle, diabetic 32 gauge x #50 ea 03/30/24 Unknown Rx 5/32 (BD Ultra-Fine Carol Pen Needle) blood-glucose,windshield wiper repairer,cont #1 ea 04/01/24 Unknown Rx (Dexcom G6 Outside Plant Technician) insulin pump cart,auto,BT,G6/7 #30 ea 04/01/24 Unknown Rx (Omnipod 5 G6-G7 Pods (Gen 5) subcutaneous cartridge) sevelamer carbonate 800 mg tablet 800 mg PO DAILY 06/18/24 08/10/24 History blood-glucose sensor (Dexcom G6 #9 ea 07/23/24 Unknown Rx Sensor device) blood-glucose transmitter (Dexcom #1 ea 07/23/24 Unknown Rx G6 Transmitter device) cholecalciferol (vitamin D3) 50 150 mcg PO MOWEFR 07/28/24 08/09/24 History mcg (2,000 unit) capsule loratadine 5 mg-pseudoephedrine ER 1 tab PO Q12H PRN sinus symptoms 08/05/24 Unknown History 120 mg tablet,extended release,12hr (Claritin-D 12 Hour) amlodipine 5 mg tablet 10 mg (2 x 5 mg) PO DAILY #90 tabs 08/11/24 08/10/24 Rx pantoprazole 40 mg tablet,delayed 40 mg PO QDAY #90 tabs 08/17/24 Unknown Rx release sucralfate 100 mg/mL oral 10 ml PO QACHS #1,200 mL 08/17/24 Unknown Rx suspension (Carafate) insulin aspart U-100 100 unit/mL 80 unit (0.8 mL) continuous 08/20/24 Unknown Rx subcutaneous solution (Novolog subcutaneous infusion .continuous U-100 Insulin aspart) #72 mL Allergy/AdvReac Type Severity Reaction Status Date / Time No Known Allergies Allergy Verified 08/31/24 10:36 Family History Mother Diabetes Thyroid disorder Grandmother Diabetes Grandfather Diabetes Surgical History Hx of surgical procedure History of cardiac catheterization Hx of surgical procedure History of coronary artery stent placement History of surgery on lower extremity Social History Smoking Status: Never smoker alcohol intake: never substance use type: does not use ROS Constitutional Constitutional: Denies fatigue, fever(s), poor appetite, weight gain or weight loss Gastrointestinal Gastrointestinal: Denies belching, bloating, change in bowel habits, change in stool character, chewing difficulty, coffee ground emesis, constipation, cramping, diarrhea, dyspepsia, dysphagia, early satiety, excessive flatus, fecal incontinence, heartburn, hematemesis, hematochezia, hemorrhoids, loose stools, melena, nausea, odynophagia, rectal bleeding, tenesmus, vomiting or weight changes Vital Signs Vital Signs Vital Signs: 08/31/24 10:38 08/31/24 10:38 08/31/24 11:04 Temperature 97.9 F 97.9 F Temperature Source Temporal Pulse Rate 85 85 Respiratory Rate 16 16 Respiratory Pattern Normal Blood Pressure 156/92 H 156/92 H Blood Pressure Mean 113 Blood Pressure Source Monitor Blood Pressure Position Semi-Fowlers Blood Pressure Location Right Arm Pulse Ox 100 100 Oxygen Delivery Method Room Air Room Air Weight Weight: 194 lb 0.108 oz Body Mass Index (BMI) 27.0 Physical Exam Const alert, oriented x3, no apparent distress and healthy appearing General Appearance: cooperative GI normal to inspection, nondistended, normoactive bowel sounds, soft to palpation, non-tender and non-distended Percussion: normal to percussion Rectal Exam: deferred Assessment & Plan Assessment/Plan (1) Dysphagia: (2) Odynophagia: PLAN: Assessment and Plan Assessment and Plan (1) Dysphagia: Status: Acute (2) Odynophagia: Status: Acute Orders: Orders Esophagus Dual Contrast Today R13.10 - Dysphagia, unspecified Medications: New sucralfate (Carafate) 10 mL PO QACHS 1,200 mL 1RF pantoprazole take once every morning on an empty stomach 40 mg PO QDAY 90 tabs 1RF Plan 44-year-old male presents for initial consultation with complaints of dysphagia and odynophagia. Symptoms began 1 week ago post dialysis with crushing chest pain and intractable emesis. He presented to the emergency department the following day with ongoing symptoms, ACS ruled out and symptoms resolved with Phenergan and GI cocktail. He reports he was able to eat a burger prior to discharge without issue. 1 day following discharge he developed sudden onset dysphagia and odynophagia in the upper mid esophagus with liquids and solids. He reports a 10 to 20 pound weight loss in the past week, and is running even on dialysis. I have started him on a daily PPI and sucralfate. I have also ordered an esophagram and EGD. He will follow-up in the office post procedures. He takes Plavix and will require approval to hold prior to EGD. Note: [employer] speech recognition medical laboratory manager software was used to create portions of this document. Sound-alike and misspelled words, as well as other medical laboratory manager errors may be contained in the documentation. Patient Instructions: Esophagram EGD
--- NOTE | 2024-08-31 11:30 | OP.CCLET_ITS ---
08/31/2024 Kristal Luke [address] [place] [address] Re : Upper GI endoscopy procedure for Jan Truong Dear Dr. Luke This procedure was performed on Saturday, August 31, 2024. My impressions and recommendations are as follows: Impressions : - LA Grade C reflux esophagitis with no bleeding. Biopsied. Dilated. - No gross lesions in the stomach. - Erythematous duodenopathy. Recommendations : - Discharge patient to home. - Resume previous diet. - Continue present medications. - Await pathology results. My findings are described in the full procedure note, which is enclosed. If I can be of further assistance, please feel free to contact me at . Sincerely, Bao Angulo, 08/31/2024 11:29:52 AM This report has been signed electronically.
--- NOTE | 2024-08-31 11:30 | OP.EGD_ITS ---
Patient Name: Jan Truong Procedure Date: 08/31/2024 10:50 AM Date of : 1980 Age: 44 Procedure: Upper GI endoscopy Indications: Epigastric abdominal pain, Dysphagia Providers: Bao Angulo DO Referring MD: Kristal Luke Medicines: Monitored Anesthesia Care Patient Profile: This is a 44 year old male. Refer to note in patient chart for documentation of history and physical. Patient has symptoms of chronic epigastric abdominal pain, chronic dyspepsia and acute odynophagia. Complications: No immediate complications. Procedure: Pre-Anesthesia Assessment: - Prior to the procedure, a History and Physical was performed, and patient medications and allergies were reviewed. The patient is competent. The risks and benefits of the procedure and the sedation options and risks were discussed with the patient. All questions were answered and informed consent was obtained. Patient identification and proposed procedure were verified by the physician in the pre-procedure area. Mental Status Examination: alert and oriented. Airway Examination: normal oropharyngeal airway and neck mobility. Respiratory Examination: clear to auscultation. CV Examination: normal. Prophylactic Antibiotics: The patient does not require prophylactic antibiotics. Prior Anticoagulants: The patient has taken no anticoagulant or antiplatelet agents. ASA Grade Assessment: II - A patient with mild systemic disease. After reviewing the risks and benefits, the patient was deemed in satisfactory condition to undergo the procedure. The anesthesia plan was to use monitored anesthesia care (MAC). Immediately prior to administration of medications, the patient was re-assessed for adequacy to receive sedatives. The heart rate, respiratory rate, oxygen saturations, blood pressure, adequacy of pulmonary ventilation, and response to care were monitored throughout the procedure. The physical status of the patient was re-assessed after the procedure. After obtaining informed consent, the endoscope was passed under direct vision. Throughout the procedure, the patient's blood pressure, pulse, and oxygen saturations were monitored continuously. The gastroscope was introduced through the mouth, and advanced to the third part of the duodenum. Small bowel enteroscopy was deemed necessary. The upper GI endoscopy was accomplished without difficulty. The patient tolerated the procedure well. Scope In: 11:16:10 AM Scope Out: 11:21:06 AM Total Procedure Duration Time 0 hours 4 minutes 56 seconds Findings: LA Grade C (one or more mucosal breaks continuous between tops of 2 or more mucosal folds, less than 75% circumference) esophagitis with no bleeding was found 34 to 40 cm from the incisors. Biopsies were taken with a cold forceps for histology. Verification of patient identification for the specimen was done. A guidewire was placed under fluoroscopic guidance and the scope was withdrawn. Dilation was performed with a Savary dilator with no resistance at 60 Fr. No gross lesions were noted in the stomach. Moderately erythematous mucosa without active bleeding and with no stigmata of bleeding was found in the entire duodenum. Impression: - LA Grade C reflux esophagitis with no bleeding. Biopsied. Dilated. - No gross lesions in the stomach. - Erythematous duodenopathy. Recommendation: - Discharge patient to home. - Resume previous diet. - Continue present medications. - Await pathology results. Procedure Code(s): --- Professional --- 69048, Esophagogastroduodenoscopy, flexible, transoral; with insertion of guide wire followed by passage of dilator(s) through esophagus over guide wire 49434, 59,51, Small intestinal endoscopy, enteroscopy beyond second portion of duodenum, not including ileum; with biopsy, single or multiple 52972, 26, Intraluminal dilation of strictures and/or obstructions (eg, esophagus), radiological supervision and interpretation CPT copyright 2021 [employer]. All rights reserved. The codes documented in this report are preliminary and upon buffer automatic review may be revised to meet current compliance requirements. Bao Angulo DO 08/31/2024 11:29:52 AM This report has been signed electronically. Number of Addenda: 0 Note Initiated On: 08/31/2024 10:50 AM
--- NOTE | 2024-08-31 11:31 | PCM.POST.ANE ---
Anesthesia: Postop Eval I Current Vital Signs Temperature: 97 F Pulse Rate: 72 Blood Pressure: 109/53 Respiratory Rate: 16 Pulse Ox: 99 Oxygen Delivery Method: Room Air Assessment Airway patent: Yes Spontaneous unlabored respirations: Yes Mental status: Awake and Calm nausea: No Vomiting: No Anesthesia Complication: No Fluid Hydration Crystalloid volume administer (ml): 100 Total IV fluid infused: 100 Progress Note Anesthesia document: Postop Eval 1 completed: Yes
[2024-08-31 11:47] LABS: Bedside Glucose 120 mg/dL (74-106)
--- NOTE | 2024-08-31 13:18 | PCM.POSTANE2 ---
Anesthesia Postop Eval I Sum Postop Eval Completion status Anesthesia document: Postop Eval 1 completed: Yes Anesthesia Postop Eval I Summary Anesthesia Postop Eval I Summary: Anesthesia Postop Eval I: Assessment Summary Airway patent Yes 08/31/24 11:32 [email or web address] Spontaneous unlabored Yes 08/31/24 11:32 [email or web address] respirations Mental status Awake,Calm 08/31/24 11:32 [email or web address] nausea No 08/31/24 11:32 [email or web address] Vomiting No 08/31/24 11:32 [email or web address] Anesthesia Postop Eval I: Fluid Summary Crystalloid volume administer 100 08/31/24 11:32 [email or web address] (ml) Colloids volume administered ( ml) Blood Product volume administered (ml) Total IV fluid infused 100 08/31/24 11:32 [email or web address] Anesthesia Postop Eval I: Summary Notes Anesthesia Complication No 08/31/24 11:32 [email or web address] Anesthesia Complication Comment: Post-operative progress note Anesthesia: Postop Eval II Evaluation Mental status: Awake and Calm Pain Level: 0 nausea: No Vomiting: No Complications Anesthesia Complication: No
== END 2024-08-31 12:03 | disposition home or self-care (01) ==
LOC: EN 10:26 → AC 10:29
PROVIDERS: PCP Internal Medicine; Referring Provider Internal Medicine; Visit Provider Internal Medicine Gastroenterology
PROC: 0DJ08ZZ Inspection of Upper Intestinal Tract, Via Natural or Artificial Opening Endoscopic (ICD-10-PCS; CPT 43235; principal; 2024-08-31 10:55)
DX: R13.10 Dysphagia, unspecified (principal); I13.2 Hypertensive heart and chronic kidney disease with heart failure and with stage 5 chronic kidney disease, or end stage renal disease; N18.6 End stage renal disease; I50.9 Heart failure, unspecified; E10.22 Type 1 diabetes mellitus with diabetic chronic kidney disease; Z79.4 Long term (current) use of insulin; E78.00 Pure hypercholesterolemia, unspecified; K21.00 Gastro-esophageal reflux disease with esophagitis, without bleeding; Z79.02 Long term (current) use of antithrombotics/antiplatelets; Z79.82 Long term (current) use of aspirin; Z96.41 Presence of insulin pump (external) (internal); I25.2 Old myocardial infarction; Z79.899 Other long term (current) drug therapy; Z95.5 Presence of coronary angioplasty implant and graft
CPT/HCPCS: 43248; 43239; 82962; 88305; 88312; 88341; 88342; C1769; J2405

== ENCOUNTER → 2024-09-16 | Outpatient (CLI) | payer MEDICAID, SELFPAY ==
--- NOTE | 2024-09-16 08:15 | RAD_ITS ---
PROCEDURE: ESOPHAGUS DUAL CONTRAST 09/16/2024 REASON FOR EXAM: ODYNOPHAGIA, DYSPHAGIA TECHNIQUE: ESOPHAGUS DUAL CONTRAST COMPARISON: None. FINDINGS: Bones: Unremarkable. Joints: Unremarkable. Soft tissues: Dual contrast images of the esophagus are obtained. The esophageal mucosa appears thin/normal. Other: Normal forward peristalsis initially GE junction has normal appearance on double contrast images. Tertiary contraction waves. Tertiary esophageal contractions are non propulsive irregular contractions of the esophagus that can be radiographically. These tissue contractions are not part of the normal peristalsis is often associated with esophageal motility disorders sometimes associated with conditions like esophageal spasm, achalasia, and gastroesophageal reflux disease GERD. RAD/Esophagus Dual Contrast IMPRESSION: Tertiary esophageal contractions Reading Location: [facility]
== END | disposition home or self-care (01) ==
LOC: RAD 08:10
PROVIDERS: PCP Internal Medicine; Referring Provider Nurse Practitioner Acute Care; Visit Provider Nurse Practitioner Acute Care
DX: R13.10 Dysphagia, unspecified (principal)
CPT/HCPCS: 74221

== ENCOUNTER 2024-10-19 01:30 | Observation (INO) | payer MEDICAID, SELFPAY ==
[2024-10-19] VITALS (13 sets, daily range): BP systolic 99–129; BP diastolic 53–80; PULSE 86–100; RESP 16–24; TEMP 37.1–37.8; O2SAT 87–98; BMI 28.8; BMI 26.9; BMI 27.0
--- NOTE | 2024-10-19 01:48 | EKG12_ITS ---
Test Reason : DYSRHYTHMIA Blood Pressure : */* mmHG Vent. Rate : 98 BPM Atrial Rate : 98 BPM P-R Int : 150 ms QRS Dur : 82 ms QT Int : 354 ms P-R-T Axes : 37 41 77 degrees QTcB Int : 451 ms Normal sinus rhythm Normal ECG Confirmed by Lio Cross ([id number]), newspaper managing editor ADRIANA MANJARREZ ([id number]) on 10/20/2024 1:45:17 PM Referred By: Confirmed By: Lio Cross
[2024-10-19 01:59] LABS: Hematocrit 31.3 % (40-54); Hemoglobin 10.8 g/dL (13.0-16.5); Immature Granulocytes Count 0.090 X10^3/uL (0.0-0.0); Mean Corp Hgb Conc 34.5 g/dL (32-36); Mean Corpuscular Volume 88.9 fL (80-94); Mean Platelet Vol. 9.4 fl (6.2-12.0); NRBC Flagged by Analyzer 0 % (0-5); Platelet Count 269 K/mm3 (150-450); RBC Distribution Width CV 14.5 % (11.6-14.6); RBC Distribution Width SD 46.5 fl (35.1-43.9); Red Blood Count 3.52 M/mm3 (4.6-6.2); White Blood Count 19.1 K/mm3 (4.4-11.0)
--- NOTE | 2024-10-19 02:10 | RAD_ITS ---
PROCEDURE: CHEST PA AND LATERAL 10/19/2024 REASON FOR EXAM: SOB TECHNIQUE: CHEST PA AND LATERAL COMPARISON: 08/23/2024 FINDINGS: Lordotic positioning. Normal heart size. Elevated right hemidiaphragm. Under aeration at the right lung base. Bilateral linear and patchy airspace opacities, nonspecific, asymmetric edema and/or pneumonia. No effusion or pneumothorax. RAD/Chest PA and Lateral IMPRESSION: Bilateral lung opacities could represent asymmetric edema as well as pneumonia. Advise correlation. Reading Location: [facility]
[2024-10-19 02:17] LABS: Partial Thromboplast Time 25.3 Seconds (24.1-36.2); Prothrombin Time (Protime)PT. 13.5 SECONDS (11.7-14.9)
[2024-10-19] MEDS: 0.9% Normal Saline (1000mL) 1,000 ML 999 ML IV (02:23)
--- NOTE | 2024-10-19 02:37 | EDS_ITS ---
HPI History of Present Illness Chief Complaint: General Illness Narrative Narrative: Patient is a 44-year-old male with past medical history of hypertension, diabetes, end-stage renal disease on dialysis Friday, Friday, and Fridaywho presented to the emergency department with concern of shortness of breath and not feeling well overall. Patient states that he did miss his dialysis session today as he states that he was not feeling well. Patient notes that yesterday he went to [employer] worked out and noted that his glucose was running high to the point where the meter was not reading the sugar level. He states that he continuously gave himself 10 units of insulin for a total of 120 units and attempts to keep himself out of DKA. Patient notes that today his sugars have been well but notes that he also has had nausea vomiting denies any sick contacts. He states that if he tries to lay down he feels very short of breath. Patient notes that he is not normally on oxygen which she is on here in the emergency department [facility] Medical History Bloodstream infection Hypertension High cholesterol Restless legs Difficulty swallowing History of stress test Elevated troponin Insulin dependent diabetes mellitus History of renal dialysis History of renal disease Back pain Injury of back Dietary restriction Gastric reflux Non-smoker Leg cramps Cardiology follow-up encounter History of echocardiogram History of heart attack Acute non-ST elevation myocardial infarction (NSTEMI) CKD (chronic kidney disease), stage V Congestive heart failure of unknown etiology Overweight (BMI 25.0-29.9) NSTEMI, initial episode of care Acute kidney injury superimposed on chronic kidney disease Elevated troponin Pre-op testing ESRF (end stage renal failure) Stage 4 chronic kidney disease Diabetes mellitus type 1 Insulin pump titration Presence of insulin pump CKD (chronic kidney disease) Hypertension Charcot foot due to diabetes mellitus Home Medications ?Medication ?Instructions ?Recorded ?Last Taken ?Type blood sugar diagnostic (FreeStyle #100 ea 10/08/21 Unk nown Rx Lite Strips) lancing device with lancets kit #100 ea 11/26/21 Unkno wn Rx (ResultlyTouch Delica Plus Lancing Device kit) pen needle, diabetic 32 gauge x #150 ea 02/26/22 Unkno wn Rx (BD Ultra-Fine Carol Pen Needle) aspirin 81 mg tablet,delayed 81 mg PO BREAKFAST #90 ta bs 02/25/24 08/30/24 Rx release clopidogrel 75 mg tablet 75 mg PO DAILY #90 tabs 01/3008/30/24 Rx rosuvastatin 10 mg tablet 10 mg PO DAILY #90 tabs 01/3008/10/24 Rx insulin syringe-needle U-100 0.3 #100 ea 03/30/24 Unkn own Rx mL 31 gauge x 5/16 (BD Insulin Syringe Ultra-Fine) pen needle, diabetic 32 gauge x #50 ea 03/30/24 Unknow n Rx 5/32 (BD Ultra-Fine Carol Pen Needle) blood-glucose,administrative associate,cont #1 ea 04/01/24 Unknown Rx (Dexcom G6 Computer Mechanic) sevelamer carbonate 800 mg tablet 800 mg PO DAILY 05/3008/10/24 History blood-glucose sensor (Dexcom G6 #9 ea 07/23/24 Unknown Rx Sensor device) blood-glucose transmitter (Dexcom #1 ea 07/23/24 Unkno wn Rx G6 Transmitter device) cholecalciferol (vitamin D3) 50 150 mcg PO MOWEFR 07/0108/09/24 History mcg (2,000 unit) capsule loratadine 5 mg-pseudoephedrine ER 1 tab PO Q12H PRN s inus symptoms 08/05/24 Unknown History 120 mg tablet,extended release,12hr (Claritin-D 12 Hour) amlodipine 5 mg tablet 10 mg (2 x 5 mg) PO DAILY #9 0 tabs 08/11/24 08/10/24 Rx insulin aspart U-100 100 unit/mL 80 unit (0.8 mL) cont inuous 08/20/24 Unknown Rx subcutaneous solution (Novolog subcutaneous infusion . continuous U-100 Insulin aspart) #72 mL carvedilol 25 mg tablet 25 mg PO QDAY 09/07/24 Unkno wn History pantoprazole 40 mg tablet,delayed 40 mg PO BID #180 ta bs 09/07/24 Unknown Rx release insulin pump cart,auto,BT,G6/7 #30 ea 09/27/24 Unknown Rx (Omnipod 5 G6-G7 Pods (Gen 5) subcutaneous cartridge) Allergy/AdvReac Type Severity Reaction Status Date / Time No Known Allergies Allergy Verified 09/07/24 13:08 Family History Mother Diabetes Thyroid disorder Grandmother Diabetes Grandfather Diabetes Surgical History Hx of surgical procedure History of cardiac catheterization Hx of surgical procedure History of coronary artery stent placement History of surgery on lower extremity Social History Smoking Status: Never smoker alcohol intake: never substance use type: does not use ROS ROS ED ROS Narrative Constitutional: Complains of chills denies fevers, headache Eyes: Denies double vision blurry vision Cardiovascular: Denies chest pain Respiratory: Complains of shortness of breath as noted above as well as cough Abdomen: Complains of nausea vomiting denies any abdominal pain : Denies any urinary symptoms Neurological: Complains of generalized weakness Musculoskeletal: Denies back pain Skin: Denies any rashes or lesions EXAM Physical Exam Narrative Exam Narrative: General: Patient is lying in bed rest comfortably did not appear to be acute distress Head: Atraumatic, normocephalic Eyes: PERRL bilaterally, EOMI bilateral, no conjunctival injection noted Neck: Soft, supple, trachea midline Cardiovascular: Regular rate and rhythm no murmurs gallops rubs noted Respiratory: Clear to auscultation bilaterally Abdomen: Soft, nondistended, nontender to palpation Extremities: +5/5 strength noted in the bilateral upper and lower extremities Neurological: Patient following commands knew that he was at [facility] the year is 2024 Skin: Warm, dry, intact no rashes or lesions noted Const Vital Signs: 10/19/24 01:31 10/19/24 01:36 10/19/24 01:37 Temperature 100.1 F H 100.1 F H Temperature Source Oral Oral Pulse Rate 99 100 Respiratory Rate 24 H 24 H Respiratory Pattern Tachypnea Blood Pressure 128/75 H 128/75 H Blood Pressure Mean 92 92 Pulse Ox 87 93 Oxygen Delivery Method Room Air Nasal Cannula Oxygen Flow Rate (L/min) 2 10/19/24 01:48 10/19/24 02:39 Temperature 99.9 F H Temperature Source Oral Pulse Rate 99 Respiratory Rate 20 H Respiratory Pattern Blood Pressure 108/70 Blood Pressure Mean 82 Pulse Ox 94 97 Oxygen Delivery Method Room Air Nasal Cannula Oxygen Flow Rate (L/min) 2 Sepsis Attestation Sepsis Organ Dysfunction Criteria Present: Creatinine > 2.0 mg/dL MDM MDM MDM Narrative Medical decision making narrative: Patient is a 44-year-old male who presented to the emergency department the chief complaint of nausea vomiting not feeling well with hyperglycemia and shortness of breath. On the differential diagnose includes but not limited to ACS, pneumonia, pneumothorax, UTI, DKA. Once workup is obtained and reviewed he will be reevaluated. Patient will not be given 30 cc/kg of IV fluids as there is concern for hypervolemic state therefore he will be given 1 L of IV fluids which was ordered at 1:47 AM. Patient was noted to be febrile here in the emergency department he will be given a gram of Tylenol. Patient CBC was reviewed was significant for leukocytosis of 19,000, hemoglobin 10.8, white count of 269. Patient INR normal at 1, PT of 13.5. Patient's venous blood gas showed a pH of 7.41. Patient sodium normal 135, potassium normal 4.8, CO2 level low at 20.6, anion gap of 22, creatinine was 9.78 and a BUN of 104. Patient glucose was 118. Patient's AST and ALT were 95 and 23 respectively. Patient's beta-hydroxybutyrate was 0.9. Patient's urinalysis pending. Patient's chest x-ray was reviewed which showed bilateral lung opacities which could represent asymmetric edema as well as pneumonia. Patient was ordered 2 g Rocephin and azithromycin at 2:37 AM. Patient's EKG reviewed showed sinus rhythm rate of 98 bpm. Reperfusion assessment performed at 2:50 AM and patient remains normotensive therefore no vasopressors indicated. At this point time we will discuss case with hospitalist for admission. Discussed case with admitting physician Dr. Naik who accept patient for admission. Patient notified is agreeable to plan all course concerns answered. Lab Data Labs: Laboratory Results - last 24 hr 10/19/24 10/19/24 01:33 01:42 WBC 19.1 H RBC 3.52 L Hgb 10.8 L Hct 31.3 L MCV 88.9 MCH 30.7 MCHC 34.5 RDW Std Deviation 46.5 H RDW Coeff of Marcella 14.5 Plt Count 269 MPV 9.4 Immature Gran % (Auto) 0.500 Neut % (Auto) 87.1 H Lymph % (Auto) 5.9 L [place] % (Auto) 5.3 Eos % (Auto) 0.7 Baso % (Auto) 0.5 Absolute Neuts (auto) 16.7 H Absolute Lymphs (auto) 1.13 Nucleated RBC % 0 PT 13.5 INR 1.0 APTT 25.3 Sodium 135 Potassium 4.8 Chloride 93 L Carbon Dioxide 20.6 L Anion Gap 22 H BUN 104 H* Creatinine 9.78 H* Estim Creat Clear Calc 11.30 L Est GFR (MDRD) Non-Af 6 L BUN/Creatinine Ratio 10.6 Glucose 118 H Lactic Acid 1.1 Calcium 10.1 Total Bilirubin 0.35 AST 95 H ALT 23 Alkaline Phosphatase 78 Total Protein 6.9 Albumin 4.4 Globulin 2.5 Albumin/Globulin Ratio 1.8 b-Hydroxybutyric mmol/L 0.9 H POC Glucose 112 H ABG Data ABG results: ABG 10/19/24 02:42 Specimen Type ARMANI Sample Site Not entered O2 % 2.0 VBG pH 7.41 VBG pO2 23 L VBG HCO3 24 VBG Total CO2 25 VBG O2 Sat (Calc) 41 L VBG Base Excess -1 POC Mix VBG pCO2 Pt Tmp 37.4 L O2 Delivery Device Cannula Radiography Diagnostic Testing: Clinical Impression(s) from Imaging Studies Chest X-Ray 10/19/24 02:10 IMPRESSION: Bilateral lung opacities could represent asymmetric edema as well as pneumonia. Advise correlation. Reading Location: [place] [address] Discharge Plan Triage Chief Complaint: General Illness ED Provider: Ford Patricia Dx/Rx/DC Orders Clinical Impression: Acute hypoxemic respiratory failure, DM type 1 (diabetes mellitus, type 1), Hypertension, Missed dialysis, Pneumonia Prescriptions: No Action (DME) FreeStyle Lite Strips Strip See Rx Instructions .Route Qty: 100 6RF Rx Instructions: 3x/day clopidogrel 75 mg tablet 75 mg PO DAILY Qty: 90 3RF aspirin 81 mg tablet,delayed release (DR/EC) 81 mg PO BREAKFAST Qty: 90 3RF rosuvastatin 10 mg tablet 10 mg PO DAILY Qty: 90 1RF cholecalciferol (vitamin D3) 50 mcg (2,000 unit) capsule 150 mcg PO MOWEFR sevelamer carbonate 800 mg tablet 800 mg PO DAILY Rx Instructions: must administer with a meal/food Claritin-D 12 Hour 5-120 mg tablet extended release 12 hr 1 tab PO Q12H PRN (Reason: sinus symptoms) carvedilol 25 mg tablet 25 mg PO QDAY Rx Instructions: must administer with a meal/food pantoprazole 40 mg tablet,delayed release (DR/EC) 40 mg PO BID Qty: 180 1RF Rx Instructions: take 30 minutes before breakfast and dinner amlodipine 5 mg tablet 10 mg PO DAILY Qty: 90 3RF (DME) lancing device with lancets [[employer] DelFluoresentric Plus Lanc Dev] Kit See Rx Instructions .Route Qty: 100 1RF Rx Instructions: 4x/day (DME) pen needle, diabetic [BD Ultra-Fine Carol Pen Needle] 32 gauge x 5/32 needle See Rx Instructions .ROUTE .MEDSUPPLY Qty: 150 5RF Rx Instructions: 4 times daily (DME) pen needle, diabetic [BD Ultra-Fine Carol Pen Needle] 32 gauge x 5/32 needle See Rx Instructions .ROUTE .MEDSUPPLY Qty: 50 0RF Rx Instructions: daily (DME) insulin syringe-needle U-100 [BD Insulin Syringe Ultra-Fine] 0.3 mL 31 gauge x 5/16 syringe See Rx Instructions .Route Qty: 100 1RF Rx Instructions: tid (DME) Dexcom G6 Computer Mechanic Misc See Rx Instructions .Route Qty: 1 0RF Rx Instructions: As directed (DME) Dexcom G6 Sensor Device See Rx Instructions .Route Qty: 9 1RF Rx Instructions: 1 sensor q 10 days (DME) Dexcom G6 Transmitter Device See Rx Instructions .Route Qty: 1 1RF Rx Instructions: 1 q 90 days insulin aspart U-100 [Novolog U-100 Insulin aspart] 100 unit/mL solution 80 unit continuous subcutaneous infusion .continuous Qty: 72 1RF (DME) Omnipod 5 G6-G7 Pods (Gen 5) Cartridge See Rx Instructions .Route Qty: 30 1RF Rx Instructions: change every 3 days Primary Care Provider: Kristal Luke Referrals: Kristal Luke MD [Primary Care Provider] - Print Language: Kyrgyz Disposition Disposition: Acute Care Hospital [facility]
[2024-10-19 02:44] LABS: Mucous, Urine 0 SEEN /hpf (<or=2+)
[2024-10-19 02:46] LABS: AST(SGOT) 95 U/L (<=37); Alanine Aminotransfer ALT/SGPT 23 U/L (<=46); Albumin, Serum 4.4 g/dL (3.5-5.0); Alkaline Phosphatase 78 U/L (40-129); Anion Gap 22 (5-15); BUN 104 mg/dL (4-19); BUN/Creat Ratio 10.6 RATIO (10-20); Calcium,Total 10.1 mg/dL (7.6-11.0); Carbon Dioxide 20.6 mmol/L (21.0-32.0); Chloride 93 mmol/L (98-108); Estimated Creatinine Clearance 11.30 ml/min (50-250); Globulin 2.5 g/dL (2.2-4.2); Glucose 118 mg/dL (70-99); Potassium 4.8 mmol/L (3.3-5.1)
[2024-10-19 02:46] LABS: FI02 2.0; SITE Not entered; VBG BASE EXCESS -1 mmol/L (-1.0-3.5); VBG PO2 23 mmHg (25-40); VBG SO2 41 % (50-70); VBG TCO2 25 mmol/L (23-33)
[2024-10-19 02:51] LABS: Color, Urine Straw (Yellow); Glucose, Dipstick 100 mg/dl (Normal); Ketone-Dipstick Negative (Negative); Leukocyte Esterase-Dipstick Negative /ul (Negative); Nitrite-Dipstick Negative (Negative); Occult Blood-Urine 150 /ul (Negative); Protein-Dipstick 100 mg/dl (Negative); Specific Gravity, Urine 1.015 (1.002-1.030); Urine Bilirubin Dipstick Negative (Negative)
[2024-10-19 03:03] LABS: BETA-HYDROXYBUTYRATE 0.9 mmol/L (0.0-0.3)
[2024-10-19] MEDS: Ceftriaxone 2 GM in 0.9% Normal Saline (50mL MB+) 50 ML IV (03:10)
[2024-10-19] MEDS: Azithromycin 500 MG in 0.9% Normal Saline (250mL Bag) 250 ML 250 MG IV ×2 (03:14→23:27)
[2024-10-19 03:27] LABS: Red Blood Cells-Urine 0-5 SEEN /hpf (0-5); Squamous Epithelial Cells - UA 0-5 SEEN /hpf (0-5); Transitional Epithelial - Ur 0-5 SEEN /hpf (0-5)
--- NOTE | 2024-10-19 03:30 | HP.PCM_ITS ---
HPI - General General Date of Admission: 10/19/24 Date of Service: 10/19/24 Chief Complaint: Shortness of breath HPI Narrative LAURIE GONZALES, is a 44 M who presents to the emergency room with chief complaint of shortness of breath and generalized illness. Patient has significant past medical history of diabetes, hypertension, end-stage renal disease on dialysis Friday and Friday by Dr. Diaz. Patient states that he was feeling nauseous and as if he were in DKA and therefore he was not able to attend dialysis earlier yesterday. When he went to [employer] yesterday he noticed that his sugar was high above the meters ability to read and again with self 10 units of insulin for a total of 120 units in his attempt to keep himself out of DKA but despite that he continued to have nausea and vomiting. He denies any sick contacts. He states now when he lays down he feels very short of breath and that he requires oxygen here in the emergency room to maintain his oxygen saturation above 90%. Patient has elevated white blood cell count with a left shift and chest x-ray reveals possible pneumonia. Patient will be admitted placed on Rocephin and azithromycin and nephrology consulted for dialysis. [facility] Medical History Bloodstream infection Hypertension High cholesterol Restless legs Difficulty swallowing History of stress test Elevated troponin Insulin dependent diabetes mellitus History of renal dialysis History of renal disease Back pain Injury of back Dietary restriction Gastric reflux Non-smoker Leg cramps Cardiology follow-up encounter History of echocardiogram History of heart attack Acute non-ST elevation myocardial infarction (NSTEMI) CKD (chronic kidney disease), stage V Congestive heart failure of unknown etiology Overweight (BMI 25.0-29.9) NSTEMI, initial episode of care Acute kidney injury superimposed on chronic kidney disease Elevated troponin Pre-op testing ESRF (end stage renal failure) Stage 4 chronic kidney disease Diabetes mellitus type 1 Insulin pump titration Presence of insulin pump CKD (chronic kidney disease) Hypertension Charcot foot due to diabetes mellitus Home Medications ?Medication ?Instructions ?Recorded ?Last Taken ?Type blood sugar diagnostic (FreeStyle #100 ea 10/08/21 Unk nown Rx Lite Strips) lancing device with lancets kit #100 ea 11/26/21 Unkno wn Rx (OneTouch Delica Plus Lancing Device kit) pen needle, diabetic 32 gauge x #150 ea 02/26/22 Unkno wn Rx 32 (BD Ultra-Fine Carol Pen Needle) aspirin 81 mg tablet,delayed 81 mg PO BREAKFAST #90 ta bs 02/25/24 08/30/24 Rx release clopidogrel 75 mg tablet 75 mg PO DAILY #90 tabs 01/3008/30/24 Rx rosuvastatin 10 mg tablet 10 mg PO DAILY #90 tabs 01/3008/10/24 Rx insulin syringe-needle U-100 0.3 #100 ea 03/30/24 Unkn own Rx mL 31 gauge x 5/16 (BD Insulin Syringe Ultra-Fine) pen needle, diabetic 32 gauge x #50 ea 03/30/24 Unknow n Rx (BD Ultra-Fine Carol Pen Needle) blood-glucose,web production artist,cont #1 ea 04/01/24 Unknown Rx (Dexcom G6 Clerk Travel Reservations) sevelamer carbonate 800 mg tablet 800 mg PO DAILY 05/3008/10/24 History blood-glucose sensor (Dexcom G6 #9 ea 07/23/24 Unknown Rx Sensor device) blood-glucose transmitter (Dexcom #1 ea 07/23/24 Unkno wn Rx G6 Transmitter device) cholecalciferol (vitamin D3) 50 150 mcg PO DAILY 07/2808/09/24 History mcg (2,000 unit) capsule amlodipine 5 mg tablet 10 mg (2 x 5 mg) PO DAILY #9 0 tabs 08/11/24 08/10/24 Rx insulin aspart U-100 100 unit/mL 80 unit (0.8 mL) cont inuous 08/20/24 Unknown Rx subcutaneous solution (Novolog subcutaneous infusion . continuous U-100 Insulin aspart) #72 mL carvedilol 25 mg tablet 25 mg PO QDAY 09/07/24 Unkno wn History pantoprazole 40 mg tablet,delayed 40 mg PO BID #180 ta bs 09/07/24 Unknown Rx release insulin pump cart,auto,BT,G6/7 #30 ea 09/27/24 Unknown Rx (Omnipod 5 G6-G7 Pods (Gen 5) subcutaneous cartridge) Allergy/AdvReac Type Severity Reaction Status Date / Time No Known Allergies Allergy Verified 09/07/24 13:08 Family History Mother Diabetes Thyroid disorder Grandmother Diabetes Grandfather Diabetes Surgical History Hx of surgical procedure History of cardiac catheterization Hx of surgical procedure History of coronary artery stent placement History of surgery on lower extremity Social History Smoking Status: Never smoker alcohol intake: never substance use type: does not use ROS Constitutional Constitutional: Reports chills, fever(s) and weakness Eyes Eyes: Denies blurry vision ENT HEENT: Denies abnormal hearing Cardiovascular Cardiovascular: Denies chest pain Respiratory/Chest Respiratory/Chest: Reports cough and shortness of breath at rest Gastrointestinal Gastrointestinal: Reports nausea and vomiting; Denies abdominal pain Genitourinary Genitourinary: Denies dysuria Musculoskeletal Musculoskeletal: Denies back pain Integumentary Integumentary: Reports dry skin Neurologic Neurologic: Denies abnormal gait or confusion Psychiatric Psychiatric: Denies anxiety Vital Signs Vital Signs Vital Signs: 10/19/24 01:31 10/19/24 01:36 10/19/24 01:37 Temperature 100.1 F H 100.1 F H Temperature Source Oral Oral Pulse Rate 99 100 Respiratory Rate 24 H 24 H Respiratory Pattern Tachypnea Blood Pressure 128/75 H 128/75 H Blood Pressure Mean 92 92 Pulse Ox 87 93 Oxygen Delivery Method Room Air Nasal Cannula Oxygen Flow Rate (L/min) 2 10/19/24 01:48 10/19/24 02:39 10/19/24 03:16 Temperature 99.9 F H 100.1 F H Temperature Source Oral Oral Pulse Rate 99 98 Respiratory Rate 20 H 21 H Respiratory Pattern Blood Pressure 108/70 99/56 L Blood Pressure Mean 82 70 Pulse Ox 94 97 94 Oxygen Delivery Method Room Air Nasal Cannula Nasal Cannula Oxygen Flow Rate (L/min) 2 2 10/19/24 03:16 Temperature 100.1 F H Temperature Source Pulse Rate 98 Respiratory Rate 21 H Respiratory Pattern Blood Pressure 99/56 L Blood Pressure Mean 70 Pulse Ox 94 Oxygen Delivery Method Oxygen Flow Rate (L/min) Weight Weight: 205 lb 14.588 oz Body Mass Index (BMI) 28.8 Physical Exam Const alert and oriented x3 General Appearance: cooperative and well developed HEENT normocephalic and head/scalp atraumatic Eyes PERRL Neck no lymphadenopathy Lymph Lymphatic: no lymphadenopathy noted Resp normal air movement and clear to auscultation bilaterally Effort and Inspection: tachypneic Auscultation: Negative for rales, rhonchi or wheezes Cardio regular rate, regular rhythm, S1 normal heart sound and S2 normal heart sound GI normal to inspection, nondistended, normoactive bowel sounds Extremity normal capillary refill Skin General Skin Exam: turgor normal Neuro no focal motor deficits and no sensory deficits noted Psych thought process normal, cooperative and affect normal Results Lab / Micro Data 10/19/24 01:42 10/19/24 01:42 Labs: Laboratory Results - last 24 hr 10/19/24 01:33: POC Glucose 112 H 10/19/24 01:42: WBC 19.1 H, RBC 3.52 L, Hgb 10.8 L, Hct 31.3 L, MCV 88.9, MCH 30.7, MCHC 34.5, RDW Std Deviation 46.5 H, RDW Coeff of Marcella 14.5, Plt Count 269, MPV 9.4, Immature Gran % (Auto) 0.500, Neut % (Auto) 87.1 H, Lymph % (Auto) 5.9 L, [place] % (Auto) 5.3, Eos % (Auto) 0.7, Baso % (Auto) 0.5, Absolute Neuts (auto) 16.7 H, Absolute Lymphs (auto) 1.13, Nucleated RBC % 0, PT 13.5, INR 1.0, APTT 25.3, Sodium 135, Potassium 4.8, Chloride 93 L, Carbon Dioxide 20.6 L, Anion Gap 22 H, BUN 104 H*, Creatinine 9.78 H*, Estim Creat Clear Calc 11.30 L, Est GFR (MDRD) Non-Af 6 L, BUN/Creatinine Ratio 10.6, Glucose 118 H, Lactic Acid 1.1, Calcium 10.1, Total Bilirubin 0.35, AST 95 H, ALT 23, Alkaline Phosphatase 78, Total Protein 6.9, Albumin 4.4, Globulin 2.5, Albumin/Globulin Ratio 1.8, b- Hydroxybutyric mmol/L 0.9 H 10/19/24 02:36: Urine Color Straw, Urine Clarity Clear, Urine pH 6.0, Ur Specific [place] 1.015, Urine Protein 100 H, Urine Glucose (UA) 100 H, Urine Ketones Negative, Urine Occult Blood 150 H, Urine Nitrite Negative, Urine Bilirubin Negative, Urine Urobilinogen Normal, Ur Leukocyte Esterase Negative, Urine RBC 0-5 SEEN, Urine WBC 0-5 SEEN, Ur Squamous Epith Cells 0-5 SEEN, Ur Transition Epith Cell 0-5 SEEN, Urine Bacteria 1+, Urine Mucus 0 SEEN ABG Data ABG results: ABG 10/19/24 02:42 Specimen Type ARMANI Sample Site Not entered O2 % 2.0 VBG pH 7.41 VBG pO2 23 L VBG HCO3 24 VBG Total CO2 25 VBG O2 Sat (Calc) 41 L VBG Base Excess -1 POC Mix VBG pCO2 Pt Tmp 37.4 L O2 Delivery Device Cannula Imaging Radiology Impression Chest X-Ray 10/19/24 02:10 IMPRESSION: Bilateral lung opacities could represent asymmetric edema as well as pneumonia. Advise correlation. Reading Location: [place] [address] Assessment & Plan Assessment/Plan (1) Pneumonia: (2) Missed dialysis: (3) Acute hypoxemic respiratory failure: (4) DM type 1 (diabetes mellitus, type 1): QUALIFIERS: Diabetes mellitus complication status: with unspecified complications Qualified Code(s): E10.8 - Type 1 diabetes mellitus with unspecified complications (5) Hypertension: QUALIFIERS: Hypertension type: unspecified Qualified Code(s): I10 - Essential (primary) hypertension PLAN: Plan 1 acute hypoxic respiratory failure secondary to pneumonia?admit patient to progressive care unit, oxygen and supportive care to maintain SpO2 greater than 90%, continue Rocephin and azithromycin initiated in the emergency room, albuterol inhalation treatment every 4 hours as needed. 2. End-stage renal disease?patient missed dialysis yesterday we will consult nephrology Dr. Diaz as patient is known to him to arrange for dialysis 3. Diabetes type 1?continue routine insulin regimen 4. Hypertension?continue routine home medication 5. DVT prophylaxis?SCDs Charges/Coding Visit Charges Inpatient E&M: 44645 Init Hosp L2
--- OUTSIDE RECORDS SUMMARY | 2024-10-19 03:37 | XMS RPT_ITS | CCD ---
Author Organization [facility] Care Team Providers Care Wad Impregnator Name Role Phone Dr. Kristal Sullivan Primary Care Provider Dr. Kristal Sullivan Referring Provider RAVINDER Pierce Attending Provider Kristal Sullivan MD Primary Care Provider Reid Ko MD Unavailable Reid Ko MD Unavailable Dr. Kristal Sullivan Primary Care Provider Dr. Kristal Sullivan Referring Provider RAVINDER Pierce Attending Provider Kristal Sullivan MD Primary Care Provider Reid Ko MD Unavailable Reid Ko MD Unavailable Dr. Kristal Sullivan Primary Care Provider Dr. Kristal Sullivan Referring Provider RAVINDER Pierce Attending Provider Dr. Kristal Sullivan Primary Care Provider Dr. Kristal Sullivan Referring Provider RAVINDER Pierce Attending Provider Dr. Laurie Elizalde Emergency Provider Dr. Louis Koehler Attending Provider Dr. Jordy Garcia Attending Provider Dr. Louis Koehler Admit Provider Dr. Louis Koehler Other Provider Dr. Daisy Diaz Other Provider Dr. Nelly Gross Attending Provider Ginny, Dr. Nelly Andrew Other Provider Kristal Sullivan MD Primary Care Provider Reid Ko MD Unavailable Reid Ko MD Unavailable Dr. Caleb Vargas Attending Provider Dr. Caleb Vargas Referring Provider Dr. 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 Daisy Diaz MD Attending Provider Dr. Daisy Diaz MD Referring Provider Virgen Enamorado Other Provider Dr. Kristal Sullivan MD Primary Care Provider Dr. Garrison Valadez MD Attending Provider Virgen Enamorado Referring Provider Dr. Kristi Murillo DO Attending Provider [phone] Dr. Kristi Murillo DO Emergency Provider Dr. Kristal Sullivan MD Referring Provider Thalia Gerardo Attending Provider Thalia Gerardo Referring Provider Care Physician, No Primary Primary Care Provider Unavailable Rory LACEY, Dr. Ji Referring Provider Marly LACEY, Dr. Giraldo Primary Care Provider Rory LACEY, Dr. Ji Attending Provider Rory LACEY, Dr. Ji Other Provider Stan MUSA-CKendra Attending Provider Farzana CHIANG, Dr. Mccormick Emergency Provider Dr. Eugenia London DO Admit Provider Dr. Eugenia London DO Attending Provider Farzana CHIANG, Dr. Mccormick Emergency Provider Dr. Eugenia London DO Admit Provider Dr. Eugenia London DO Other Provider Rodo LACEY, Dr. Myers Attending Provider Emily LACEY, Dr. Villa Other Provider Rodo LACEY, Dr. Myers Other Provider Radha LACEY, Dr. Spence Attending Provider Elmer MUSA-CKalina Attending Provider Dr. Kristal Sullivan MD Primary Care Provider Thalia Gerardo Attending Provider Dr. Kristal Sullivan MD Referring Provider Dr. Laurie Elizalde DO Emergency Provider Kristal Sullivan MD Primary Care Provider Dr. Laurie Elizalde DO Attending Provider Dr. Bao Angulo DO Attending Provider Dr. Bao Angulo DO Other Provider [phone] Pavan MUSA-CLorraine Attending Provider NONE, PCP Referring Unavailable GANTA, KRISTAL Primary Care Unavailable MARIA LUZ TRUJILLO Admitting Unavailable MARIA LUZ TRUJILLO Attending Unavailable Kalina Sanders Referring Provider Venkata Vargas Admitting Unavailable Venkata Vargas Consulting Unavailable Care Physician, No Primary Primary Care Unava ilable Rodolfo Dockery Attending Unavailable Daisy Diaz Consulting Unavailable Vince Ghotra Consulting Unavailable Hussein Schwartz Consulting Unavailable Steve Napoles Consulting Unavailable Lawrence Garciaril Consulting Unavailable Aris Argueta Consulting Unavailable Rodolfo Dockery Consulting Unavailable Lio Cross Consulting Unavailable Wilfredo Andrade Consulting UnavailMicky Nathan Consulting Unavailable Romero Paula NP Consulting Unavailable Lorraine Browne NP Consulting Unavailable Virgen Enamorado Consulting Unavail able Garrison Joaquin Consulting Unavailable Venkata Vargas Attending Unavailable Halima Grossa Lorrie Attending Unavailable Caleb Yin Consulting Unavailable Lio Stout Consulting Unavailable Ginny, Nelly Lorrie Consulting Unavailable Nigel Carroll Consulting Unavailable Kahlil Escoto Consulting Unavailable Cipriano Ryan Consulting Unavailable Jaime Catalan Consulting Unavailable Venkata Renee Consulting Unavailable Miguel Saunders Consulting Unavailable Jerry Hayes Consulting Unavailable Adalgisa Chavez Consulting UnavailBarrington Jackson Consulting Unavailable Nayan Valverde Consulting Unavailable Sandra Lee Consulting Unavailable Susy Navarro Consulting Unavailable Deo Mikael Consulting Unavailable Jefe Kitchen Consulting Unavailable Benny Sargent Consulting Unavailable Diana Ibarra Consulting Unavailable Shaun, Sahil Consulting Unavailable Julian Bashir Consulting Unavailable LeaAnthony colemanison Attending Unavailable Lea, Thalia Referring Unavailable Ganta, Kristal Primary Care Unavailable Lea, Thalia Referring Unavailable Garrison Valadez Attending Unavailable Ganta, Kristal Primary Care Unavailable Lea, Thalia Referring Unavailable Garrison Valadez Attending Unavailable Ganta, Kristal Primary Care Unavailable Ginny Nelly Lorrie Referring Unavailable Lio Stout Attending Unavailable Virgen Enamorado Referring Unavail able Rory, Garrison Attending Unavailable Ganta, Kristal Primary Care Unavailable Care Physician, No Primary Primary Care Unava ilable Radha, Jordy Attending Unavailable Radha, Jordy Referring Unavailable Ganta, Kristal Referring Unavailable Ganta, Kristal Primary Care Unavailable Thalia Lea Attending Unavailable Virgen Enamorado Attending Unavail able Ganta, Kristal Primary Care Unavailable Care Physician, No Primary Referring Unava ilable Rory, Garrison Referring Unavailable Rory, Garrison Attending Unavailable Ganta, Kristal Primary Care Unavailable Kalina Payne Referring Unavailable Ganta, Kristal Primary Care Unavailable Kalina Payne Attending Unavailable Ganta, Kristal Primary Care Unavailable Laurie Elizalde Attending Unavailable Ganta, Kristal Primary Care Unavailable EmilyKit greens Attending Unavailable FriendBao Attending Unavailable Ganta, Kristal Primary Care Unavailable Care Physician, No Primary Primary Care Unava ilable Kendra Pierce Attending Unavailable Care Physician, No Primary Referring Unava ilable Garrison Joaquin Attending Unavailable Rory, Garrison Attending Unavailable Rosamond, Garrison Referring Unavailable Ganta, Kristal Primary Care Unavailable Bao Angulo Attending Unavailable Ganta, Kristal Primary Care Unavailable Louis Koehler Attending Unavailable Eugenia London Admitting Unavailable Eugenia London Consulting Unavailable Emily, Jayaprakas Consulting Unavailable Rodo, Louis Consulting Unavailable Radha, [place] Attending Unavailable Rosamond, Garrison Consulting Unavailable Rosamond, Garrison Attending Unavailable Ganta, Kristal Primary Care Unavailable Rosamond, Garrison Referring Unavailable Rosamond, Garrison Consulting Unavailable Rory, Garrison Referring Unavailable Rosamond, Garrison Attending Unavailable Ganta, Kristal Primary Care Unavailable Eugenia London Attending Unavailable Hussein Schwartz Attending Unavailable Care Physician, No Primary Primary Care Unava ilable Care Physician, No Primary Primary Care Unava ilable Kendra Pierce Attending Unavailable Ganta, Kristal Primary Care Unavailable Ganta, Kristal Referring Unavailable Kalina Payne Attending Unavailable Thalia Lea Attending Unavailable Ganta, Kristal Referring Unavailable Ganta, Kristal Primary Care Unavailable Ganta, Kristal Referring Unavailable Ganta, Kristal Primary Care Unavailable Kalina Payne Attending Unavailable Ganta, Kristal Referring Unavailable Ganta, Kristal Primary Care Unavailable Lorraine Browne NP Attending Unavailable Ganta, Kristal Referring Unavailable Ganta, Kristal Primary Care Unavailable Kendra Pierce Attending Unavailable Lea, Thalia Attending Unavailable Ganta, Kristal Referring Unavailable Ganta, Kristal Primary Care Unavailable Lea, Thalia Attending Unavailable Ganta, Kristal Referring Unavailable Ganta, Kristal Primary Care Unavailable Virgen Enamorado Attending Unavail able Care Physician, No Primary Primary Care Unava ilable Care Physician, No Primary Referring Unava ilable Care Physician, No Primary Primary Care Unava ilable Care Physician, No Primary Referring Unava ilable Kendra Pierce Attending Unavailable Virgen Enamorado Consulting Unavail able Emily, Jayaprakas Referring Unavailable Emily, Jayaprakas Attending Unavailable Care Physician, No Primary Primary Care Unava ilable Lea, Thalia Attending Unavailable Lea, Thalia Referring Unavailable Ganta, Kristal Primary Care Unavailable Ganta, Kristal Primary Care Unavailable Kristi Murillo Attending Unavailable Natividad Borges Attending Unavailable Kev, Bao Consulting Unavailable Ganta, Kristal Referring Unavailable Ganta, Kristal Primary Care Unavailable FriendBao Attending Unavailable Garrison Valadez Attending Unavailable Ganta, Kristal Primary Care Unavailable Emily, Jayaprakas Referring Unavailable Friend, Bao Attending Unavailable Ganta, Kristal Referring Unavailable Ganta, Kristal Primary Care Unavailable Venkata Vargas Admitting Unavailable Venkata Vargas Consulting Unavailable Nelly Gross Attending Unavailable Care Physician, No Primary Primary Care Unava ilable Emily, Jayaprakas Consulting Unavailable Amro, Ahmed Consulting Unavailable Efren, Hussein Consulting Unavailable Steve Napoles Consulting Unavailable Radha, [place] Consulting Unavailable Kendall, Aris Consulting Unavailable Belal, Farouk Consulting Unavailable Lio Cross Consulting Unavailable Wilfredo Andrade Consulting UnavailKellie Nathanatore Consulting Unavailable Nisa OCCUPATIONAL THERAPY INSTRUCTORRomero Consulting Unavailable Lorraine Browne NP Consulting Unavailable Virgen Enamorado Consulting Unavail able Garrison Joaquin Consulting Unavailable Caleb Yin Consulting Unavailable Lio Stout Consulting Unavailable Ganta, Kristal Primary Care Unavailable Louis Koehler Attending Unavailable Eugenia London Consulting Unavailable Eugenia London Admitting Unavailable Emily, Jayaprakas Consulting Unavailable GANTA, KRISTAL Attending Unavailable GANTA, KRISTAL Primary Care Unavailable POGGIO, RONEN D Referring Unavailable GAN, KRISTAL Primary Care Unavailable POGGIO, RONEN D Referring Unavailable [facility] Primary Care Unavailable POGGIO, RONEN D Referring Unavailable [facility] Primary Care Unavailable POGGIO, RONEN D Referring Unavailable [facility] Primary Care Unavailable POGGIO, RONEN D Referring Unavailable [facility] Primary Care Unavailable [facility] Attending Unavailable [facility] Primary Care Unavailable [facility], KRISTAL Referring Unavailable [facility] Primary Care Unavailable DUSTIN BEARD Referring Unavailable [facility] Primary [facility] Unavailable Allergies Allergy Classification Reported Allergen(s) Allergy Type Date of Onset Reaction(s) Facility (20 sources) Seasonal allergy; Translations: [SEASONAL ALLERGIES] Allergy to substance 11-17-2014 Intolerance [facility] Work Phone: Medications Current Medications Medication Drug Class(es) Dates Sig (Normalized) Sig (Original) amLODIPine 10 mg oral tablet (20 sources) Dihydropyridine Calcium Channel Zain Start: 08-23-2024 End: 10-28-2024 take 1 tablet by mouth once daily amLODIPine (Norvasc) 10 MG tablet Take 1 tablet (10 mg) by mouth daily. 30 tablet 1 08/29/2024 10/28/2024 Active Start: 08-11-2024 take 2 tablets by mo uth once daily Amlodipine 5 mg tablet Active 10 mg PO DAILY August 11, 2024 2:32pm Start: 02-25-2024 End: 08-11-2024 take 1 tablet by mouth once daily amLODIPine (NORVASC) 5 mg tablet Take 1 tablet by mouth once daily. 90 tablet 06/15/2024 Active Start: 12-23-2022 End: 02-25-2024 take 1 tablet by mouth once daily Amlodipine 10 mg tablet Discontinued 10 mg PO DAILY November 17, 2023 11:04am February 25, 2024 10:55am amoxicillin 875 mg / clavulanate 125 mg oral tablet (1 source) Penicillin-class Antibacterial Start: 01-16-2020 take 875 mg by mouth every twelve hours Amoxicillin-Pot Clavulanate Active 875 MG PO Q12H January 16, 2020 12:16am aspirin 81 mg delayed release oral tablet (20 sources) Platelet Aggregation Inhibitor, Nonsteroidal Anti-inflammatory Drug Start: 01-31-2024 End: 10-28-2024 take 1 tablet by mouth at breakfast Aspirin 81 mg tablet,delayed release (DR/EC) Active 81 mg PO WITH BREAKFAST 90 February 25, 2024 10:55am Blood-Glucose Meter,Continuous (Dexcom G6 Paper Coating Machine Operator) misc (18 sources) Start: 04-01-2024 Blood-Glucose Meter,Continuous (Dexcom G6 Paper Coating Machine Operator) misc Active 0 .Route April 01, 2024 11:49am As directed Start: 10-08-2021 End: 04-01-2024 Blood-Glucose Meter,Continuo us (Dexcom G6 Paper Coating Machine Operator) misc Discontinued 0 .Route October 08, 2021 12:00am April 01, 2024 11:50am As directed Start: 10-08-2021 Blood-Glucose Meter,Continuous (Dexcom G6 Paper Coating Machine Operator) misc Active 0 .Route October 07, 2021 11:00pm As directed Start: 10-08-2021 Blood-Glucose Meter,Continuous (Dexcom G6 Paper Coating Machine Operator) misc Active 0 .Route October 08, 2021 12:00am As directed Blood-Glucose Sensor (Dexcom G6 Sensor) device (20 sources) Start: 07-23-2024 Blood-Glucose Sensor (Dexcom G6 Sensor) device Active 0 .Route July 23, 2024 7:28am 1 sensor q 10 days Start: 04-01-2024 End: 07-23-2024 Blood-Glucose Sensor (Dexcom G6 Sensor) device Discontinued 0 .Route April 01, 2024 11:49am July 23, 2024 7:29am 1 sensor q 10 days Start: 04-01-2024 Blood-Glucose Sensor (Dexcom G6 Sensor) device Active 0 .Route April 01, 2024 11:49am 1 sensor q 10 days Start: 02-25-2024 End: 04-01-2024 Blood-Glucose Sensor (Dexcom G6 Sensor) device Discontinued 0 .Route February 25, 2024 11:38am April 01, 2024 11:50am 1 sensor q 10 days Start: 01-16-2024 End: 02-25-2024 Blood-Glucose Sensor (Dexcom G6 Sensor) device Discontinued 0 .Route January 16, 2024 12:28pm February 25, 2024 11:40am 1 sensor q 10 days Start: 07-14-2023 End: 01-16-2024 Blood-Glucose Sensor (Dexcom G6 Sensor) device Discontinued 0 .Route July 14, 2023 9:55am January 16, 2024 12:28pm 1 sensor q 10 days Start: 07-14-2023 Blood-Glucose Sensor (Dexcom G6 Sensor) device Active 0 .Route July 14, 2023 9:55am 1 sensor q 10 days Start: 05-14-2023 End: 07-14-2023 Blood-Glucose Sensor (Dexcom G6 Sensor) device Discontinued 0 .Route May 14, 2023 2:39pm July 14, 2023 9:55am 1 sensor q 10 days Start: 05-14-2023 Blood-Glucose Sensor (Dexcom G6 Sensor) device Active 0 .Route May 14, 2023 2:39pm 1 sensor q 10 days Start: 05-14-2023 Blood-Glucose Sensor (Dexcom G6 Sensor) device Active 0 .Route May 14, 2023 1:39pm 1 sensor q 10 days Start: 10-31-2022 End: 05-14-2023 Blood-Glucose Sensor (Dexcom G6 Sensor) device Discontinued 0 .Route October 31, 2022 3:25pm May 14, 2023 2:39pm 1 sensor q 10 days Start: 10-31-2022 End: 05-14-2023 Blood-Glucose Sensor (Dexcom G6 Sensor) device Discontinued 0 .Route October 31, 2022 2:25pm May 14, 2023 1:39pm 1 sensor q 10 days Start: 05-03-2022 End: 10-31-2022 Blood-Glucose Sensor (Dexcom G6 Sensor) device Discontinued 0 .Route May 03, 2022 1:25pm October 31, 2022 3:26pm 1 sensor q 10 days Start: 05-03-2022 End: 10-31-2022 Blood-Glucose Sensor (Dexcom G6 Sensor) device Discontinued 0 .Route May 03, 2022 12:25pm October 31, 2022 2:26pm 1 sensor q 10 days Start: 10-08-2021 End: 05-03-2022 Blood-Glucose Sensor (Dexcom G6 Sensor) device Discontinued 0 .Route 9 October 08, 2021 12:00am May 03, 2022 1:25pm 1 sensor q 10 days Start: 10-08-2021 End: 05-03-2022 Blood-Glucose Sensor (Dexcom G6 Sensor) device Discontinued 0 .Route 9 October 07, 2021 11:00pm May 03, 2022 12:25pm 1 sensor q 10 days Start: 10-08-2021 Blood-Glucose Sensor (Dexcom G6 Sensor) device Active 0 .Route 9 October 08, 2021 12:00am 1 sensor q 10 days Blood-Glucose Transmitter (Dexcom G6 Transmitter) device (20 sources) Start: 07-23-2024 Blood-Glucose Transmitter (Dexcom G6 Transmitter) device Active 0 .Route July 23, 2024 7:28am 1 q 90 days Start: 02-25-2024 End: 07-23-2024 Blood-Glucose Transmitter (D excom G6 Transmitter) device Discontinued 0 .Route February 25, 2024 11:39am July 23, 2024 7:29am 1 q 90 days Start: 02-25-2024 Blood-Glucose Transmitter (Dexcom G6 Transmitter) device Active 0 .Route 1 February 25, 2024 11:39am 1 q 90 days Start: 01-16-2024 End: 02-25-2024 Blood-Glucose Transmitter (D excom G6 Transmitter) device Discontinued 0 .Route January 16, 2024 12:28pm February 25, 2024 11:40am 1 q 90 days Start: 05-14-2023 End: 01-16-2024 Blood-Glucose Transmitter (D excom G6 Transmitter) device Discontinued 0 .Route May 14, 2023 2:39pm January 16, 2024 12:28pm 1 q 90 days Start: 05-14-2023 Blood-Glucose Transmitter (Dexcom G6 Transmitter) device Active 0 .Route May 14, 2023 2:39pm 1 q 90 days Start: 05-14-2023 Blood-Glucose Transmitter (Dexcom G6 Transmitter) device Active 0 .Route May 14, 2023 1:39pm 1 q 90 days Start: 02-18-2023 End: 05-14-2023 Blood-Glucose Transmitter (D excom G6 Transmitter) device Discontinued 0 .Route 1 February 18, 2023 1:54pm May 14, 2023 2:39pm 1 q 90 days Start: 02-18-2023 End: 05-14-2023 Blood-Glucose Transmitter (D excom G6 Transmitter) device Discontinued 0 .Route 1 February 18, 2023 12:54pm May 14, 2023 1:39pm 1 q 90 days Start: 05-03-2022 End: 02-18-2023 Blood-Glucose Transmitter (D excom G6 Transmitter) device Discontinued 0 .Route May 03, 2022 1:25pm February 18, 2023 1:54pm 1 q 90 days Start: 05-03-2022 End: 02-18-2023 Blood-Glucose Transmitter (D excom G6 Transmitter) device Discontinued 0 .Route 1 May 03, 2022 12:25pm February 18, 2023 12:54pm 1 q 90 days Start: 04-10-2022 End: 05-03-2022 Blood-Glucose Transmitter (D excom G6 Transmitter) device Discontinued 0 .Route April 10, 2022 10:42am May 03, 2022 1:25pm 1 q 90 days Start: 04-10-2022 End: 05-03-2022 Blood-Glucose Transmitter (D excom G6 Transmitter) device Discontinued 0 .Route 1 April 10, 2022 9:42am May 03, 2022 12:25pm 1 q 90 days Start: 10-08-2021 End: 04-10-2022 Blood-Glucose Transmitter (D excom G6 Transmitter) device Discontinued 0 .Route 1 October 08, 2021 12:00am April 10, 2022 10:42am 1 q 90 days Start: 10-08-2021 End: 04-10-2022 Blood-Glucose Transmitter (D excom G6 Transmitter) device Discontinued 0 .Route 1 October 07, 2021 11:00pm April 10, 2022 9:42am 1 q 90 days Start: 10-08-2021 Blood-Glucose Transmitter (Dexcom G6 Transmitter) device Active 0 .Route 1 October 08, 2021 12:00am 1 q 90 days Blood-Glucose,Paper Coating Machine Operator,Cont (Dexcom G6 Paper Coating Machine Operator) misc (14 sources) Start: 04-01-2024 Blood-Glucose,Paper Coating Machine Operator,Cont (Dexcom G6 Paper Coating Machine Operator) misc Active 0 .Route April 01, 2024 11:49am As directed Start: 10-08-2021 End: 04-01-2024 Blood-Glucose,Paper Coating Machine Operator,Cont (Dexcom G6 Paper Coating Machine Operator) misc Discontinued 0 .Route 1 October 08, 2021 12:00am April 01, 2024 11:50am As directed carvedilol 25 mg oral tablet (20 sources) alpha-Adrenergic Zain, beta-Adrenergic Zain Start: 09-07-2024 take 1 tablet by mouth once daily at mealtime Carvedilol 25 mg tablet Active 25 mg PO daily September 07, 2024 12:00am must administer with a meal/food Start: 08-27-2024 End: 10-27-2024 take 1 tablet by mouth twice daily at mealtime carvedilol (Coreg) 25 MG tablet Take 1 tablet (25 mg) by mouth 2 times daily (with meals). 60 tablet 1 08/28/2024 10/27/2024 Active Start: 08-26-2024 End: 08-27-2024 take 12.5 mg by mouth twice daily at mealtime 12.5 mg, Oral, 2 times daily with meals, First dose on Elvira 08/26/24 at 0845 Start: 12-25-2020 End: 06-15-2024 take 1 tablet by mouth twice daily carvedilol (COREG) 12.5 mg tablet Take 1 tablet by mouth twice daily. 60 tablet 2 12/25/2020 06/15/2024 Discontinued Comment on above: Take 1 tablet by lily twice daily. cholecalciferol 0.05 mg oral capsule (20 sources) Vitamin D Start: 07-28-2024 Cholecalciferol (Vitamin D3) 50 mcg (2,000 unit) capsule Active 150 ug PO MOWEFR July 28, 2024 12:00am Start: 12-24-2022 End: 05-14-2023 take 1 capsule by mouth every week Cholecalciferol (Vitamin D3) 1,250 mcg (50,000 unit) capsule Discontinued 1250 ug PO EVERY WEEK December 24, 2022 12:00am May 14, 2023 2:18pm Start: 07-03-2021 End: 10-08-2021 take 1 capsule by mouth every week Cholecalciferol (Vitamin D3) 1,250 mcg (50,000 unit) capsule Discontinued 1250 ug PO EVERY WEEK July 03, 2021 12:00am October 08, 2021 2:51pm Start: 03-16-2019 End: 09-21-2024 take 1 capsule by mouth once daily Cholecalciferol, Vitamin D3, 125 mcg (5,000 unit) cap Take 1 capsule by mouth once daily. 30 capsule 4 06/23/2020 09/21/2024 Discontinued Comment on above: Take 1 capsule by [facility] once daily. clopidogrel 75 mg oral tablet (20 sources) [id number] Platelet Inhibitor Start: 01-31-2024 End: 10-28-2024 take 1 tablet by mouth once daily Clopidogrel 75 mg tablet Active 75 mg PO DAILY February 25, 2024 10:54am DEXCOM G6 SENSOR aiden (13 sources) Start: 06-03-2024 DEXCOM G6 SENSOR aiden USE 1 SENSOR EVERY 10 DAYS DIRECTED 06/03/2024 Active Insulin Pump Cart,Auto,Bt,G6/7 (Omnipod 5 G6-G7 Pods (Gen 5)) cartridge (12 sources) Start: 04-01-2024 Insulin Pump Cart,Auto,Bt,G6/7 (Omnipod 5 G6-G7 Pods (Gen 5)) cartridge Active 0 .Route April 01, 2024 1:00am change every 3 days 3 ml liraglutide 6 mg/ml pen injector (20 sources) GLP-1 Receptor Agonist Start: 05-01-2021 Liraglutide (Victoza 3-Maximino) 0.6 mg/0.1 mL (18 mg/3 mL) pen injector Active 1.8 MG SC DAILY May 01, 2021 12:35pm Start: 05-09-2013 End: 07-22-2014 Liraglutide (Victoza 2-Maximino) 0.6 MG/0.1 ML Ml Discontinued 1.8 mg SQ DAILY May 09, 2013 1:00am July 22, 2014 8:33am 12 hr loratadine 5 mg / pseudoephedrine sulfate 120 mg extended release oral tablet (9 sources) alpha-Adrenergic Agonist Start: 08-05-2024 take 1 tablet by mouth every twelve hours as needed Loratadine-Pseudoephedrine (Claritin-D 12 Hour) 5-120 mg tablet extended release 12 hr Active 1 {tbl} PO Q12H as needed for sinus symptoms August 05, 2024 12:00am MEDICAL SUPPLY (20 sources) Start: 04-26-2022 MEDICAL SUPPLY Blood pressure machine 1 Each EACH 04/26/2022 Active Start: 04-26-2022 MEDICAL SUPPLY Blood pressure machine 1 Each 0 04/26/2022 Active Comment on above: Blood pressure machi ne 24 hr metoprolol succinate 25 mg extended release oral tablet (20 sources) beta-Adrenergic Zain Start: 05-29-2023 End: 09-07-2024 take 1 tablet by mouth once daily metoprolol succinate ER (TOPROL XL) 25 mg 24 hr tablet Take 1 tablet by mouth once daily. 90 tablet 06/15/2024 Active Nut.Tx.Gluc.Intol,Lac -Free,Soy (GLUCERNA SHAKE) liqd (20 sources) Start: 12-01-2020 Nut.Tx.Gluc.Intol,La c-Free,Soy (GLUCERNA SHAKE) liqd DRINK 1 BOTTLE (237ML) twice a day 16152 mL 5 12/01/2020 Active Start: 07-17-2018 End: 12-01-2020 Nut.Tx.Gluc.Intol,Lac-Free,S oy (GLUCERNA SHAKE) liqd DRINK 1 BOTTLE (237ML) twice a day 68523 mL 5 07/17/2018 12/01/2020 Discontinued Comment on above: DRINK 1 BOTTLE (237M L) twice a day OMNIPOD 5 G6-G7 PODS, GEN 5, crtg (13 sources) Start: OMNIPOD 5 G6-G7 PODS, GEN 5, crtg 05/06/2024 Active pantoprazole 40 mg delayed release oral tablet (20 sources) Proton Pump Inhibitor Start: take 1 tablet by mouth twice daily 30 minutes before breakfast Pantoprazole 40 mg tablet,delayed release (DR/EC) Active 40 mg PO TWICE A DAY 180 September 07, 2024 12:00am take 30 minutes before breakfast and dinner Start: 08-17-2024 End: 10-28-2024 take 1 tablet by mouth once daily in the morning Pantoprazole 40 mg tablet,delayed release (DR/EC) Discontinued 40 mg PO daily August 17, 2024 12:00am September 07, 2024 1:25pm take once every morning on an empty stomach Start: 01-31-2024 End: 04-23-2024 take 1 tablet by mouth twice daily Pantoprazole 40 mg Tablet,Delayed Release (Dr/Ec) Discontinued 40 mg PO TWICE A DAY January 31, 2024 12:00am April 23, 2024 9:21am Start: 12-18-2015 End: 05-08-2020 take 1 tablet by mouth once daily before breakfast pantoprazole DR (PROTONIX) 40 mg tablet Take 1 tablet by mouth daily before breakfast. Take on empty stomach, 1/2 hr before meal. 90 tablet 4 12/18/2015 05/08/2020 Discontinued phentermine hydrochloride 37.5 mg oral tablet (7 sources) Sympathomimetic Amine Anorectic Start: 07-02-2022 End: 08-01-2022 take 1 tablet by mouth once daily Phentermine HCl (ADIPEX-P) 37.5 mg tablet Indications: Class 1 obesity with serious comorbidity in adult, unspecified BMI, unspecified obesity type Take 1 tablet by mouth once daily for 30 days. 30 tablet 0 07/02/2022 08/01/2022 Active Start: 05-31-2022 End: 06-30-2022 take 1 tablet by mouth once daily Phentermine HCl (ADIPEX-P) 37.5 mg tablet Indications: Class 1 obesity with serious comorbidity in adult, unspecified BMI, unspecified obesity type Take 1 tablet by mouth once daily for 30 days. 30 tablet 0 05/31/2022 06/30/2022 Active Start: 04-26-2022 End: 05-26-2022 take 1 tablet by mouth once daily Phentermine HCl (ADIPEX-P) 37.5 mg tablet Indications: Class 1 obesity with serious comorbidity in adult, unspecified BMI, unspecified obesity type Take 1 tablet by mouth once daily for 30 days. 30 tablet 0 04/26/2022 05/26/2022 Active Comment on above: Take 1 tablet by lily once daily for 30 days. sevelamer carbonate 800 mg oral tablet (20 sources) Phosphate Binder Start: 06-18-2024 take 1 tablet by mouth once daily at mealtime Sevelamer Carbonate 800 mg tablet Active 800 mg PO DAILY June 18, 2024 12:00am must administer with a meal/food Start: 05-24-2024 End: 05-19-2025 take 1 tablet by mouth three times daily at mealtime sevelamer carbonate (RENVELA) 800 mg tablet Take 800 mg by mouth three times a day with meals. 05/24/2024 05/19/2025 Active Zn Huxwxep-Bruydaywrbh-Rcz (AMERIGEL) gel (20 sources) Start: 03-05-2017 Zn Tfqwxfn-Pumgqjlwfzn-Shp (AMERIGEL) gel Apply 1 application to affected area twice daily. 3 Tube 1 03/05/2017 Active Comment on above: Apply 1 application to affected area twice daily. Completed/Discontinued Medications Medication Drug Class(es) Dates Sig (Normalized) Sig (Original) acetaminophen 500 mg oral tablet (6 sources) Start: 08-25-2024 End: 08-28-2024 take 1 tablet by mouth every six hours as needed for pain 500 mg, Oral, Every 6 hours PRN, mild pain (1-3), Starting on Fri08/25/24 at 2308, Maximum dose of acetaminophen is 4000 mg from all sources in 24 hours. Start: 08-25-2024 End: 08-25-2024 650 mg, Oral, Once PRN, mild pain (1-3), Starting on Fri08/25/24 at 0619, For 1 dose, Maximum dose of acetaminophen is 4000 mg from all sources in 24 hours. Start: 08-23-2024 End: 08-25-2024 1,000 mg, Oral, 3 times tim y, First dose on Fri08/23/24 at 1400, For 2 days, Maximum dose of acetaminophen is 4000 mg from all sources in 24 hours. acetaminophen 325 mg / HYDROcodone bitartrate 5 mg oral tablet (20 sources) Opioid Agonist Start: 11-02-2021 End: 05-14-2023 Hydrocodone-Acetaminophen 5- 325 mg tablet Discontinued 1 {tbl} PO EVERY 6 HOURS NEEDED as needed for Pain 12 November 02, 2021 May 14, 2023 2:18pm Start: 11-02-2021 End: 05-14-2023 take 1 tablet by mouth every six hours as needed Hydrocodone-Acetaminophen Discontinued 1 TABLET PO EVERY 6 HOURS NEEDED 03 02November 02, 2021 May 14, 2023 2:18pm Start: 12-04-2019 End: 12-07-2019 Hydrocodone-Acetaminophen 1 TABLET tablet Discontinued 1 {tbl} PO EVERY 6 HOURS NEEDED as needed for Pain 14 December 04, 2019 December 06, 2019 12:00am December 07, 2019 12:02am Start: 12-04-2019 End: 12-07-2019 take 1 tablet by mouth every six hours as needed Hydrocodone-Acetaminophen Discontinued 1 TABLET PO EVERY 6 HOURS NEEDED 14 December 04, 2019 December 07, 2019 12:02am amoxicillin 500 mg oral capsule (19 sources) Penicillin-class Antibacterial Start: 04-07-2023 End: 05-14-2023 take 1 capsule by mouth three times daily Amoxicillin 500 mg capsule Discontinued 500 mg PO THREE TIMES A DAY 18 10April 07, 2023 1:00am May 14, 2023 2:18pm calcium carbonate 500 mg chewable tablet (2 sources) Start: 08-25-2024 End: 08-28-2024 take 1 tablet by mouth every twenty-four hours as needed for gastroesophageal reflux disease 500 mg, Oral, Daily PRN, indigestion, heartburn, Starting on Fri08/25/24 at 1004 ceFAZolin (Ancef) 1,000 mg in sodium chloride 0.9 % 50 mL IVPB (2 sources) Start: 08-24-2024 End: 08-28-2024 cetirizine hydrochloride 10 mg oral tablet (20 sources) Histamine-1 Receptor Antagonist Start: 11-22-2020 End: 06-15-2024 take 1 tablet by mouth once daily cetirizine (ZYRTEC) 10 mg tablet Take 1 tablet by mouth once daily. 30 tablet 5 11/22/2020 06/15/2024 Discontinued Comment on above: Take 1 tablet by lily once daily. cholecalciferol 9.52 unt/ml / glucose 357 mg/ml oral gel (2 sources) Vitamin D Start: 08-24-2024 End: 08-28-2024 15 g, Oral, As needed, low blood sugar, Starting on Fri08/24/24 at 1139, If blood glucose less than 50 mg/dL and patient ALERT and NOT NPO, give 2 tubes glucose gel. If blood glucose less than 70 mg/dL and patient ALERT and NOT NPO, give 1 tube glucose gel. Repeat blood glucose in 15 minutes. If blood glucose is less than 70 mg/dL, repeat treatment and recheck blood glucose in 15 minutes x2 and notify provider. cyclobenzaprine hydrochloride 10 mg oral tablet (20 sources) Muscle Relaxant Start: 02-09-2018 End: 11-05-2019 take 1 tablet by mouth three times daily Cyclobenzaprine 10 MG tablet Discontinued 10 mg PO THREE TIMES A DAY February 09, 2018 1:00am November 05, 2019 2:13pm diphenhydrAMINE hydrochloride 10 mg/ml / zinc acetate 1 mg/ml topical cream (2 sources) Histamine-1 Receptor Antagonist Start: 08-26-2024 End: 08-28-2024 Topical, 3 times daily PRN, itching, Starting on Elvira 08/26/24 at 1434 0.5 ml dulaglutide 1.5 mg/ml auto-injector (20 sources) GLP-1 Receptor Agonist Start: 03-19-2021 End: 05-01-2021 Dulaglutide (Trulicity) 0.75 mg/0.5 mL pen injector Discontinued 0.75 mg SC EVERY WEEK 2 March 19, 2021 1:00am May 01, 2021 12:35pm famotidine 20 mg oral tablet (20 sources) Histamine-2 Receptor Antagonist Start: 04-23-2019 End: 06-15-2024 take 1 tablet by mouth at bedtime as needed famotidine (PEPCID) 20 mg tablet Indications: Gastroesophageal reflux disease without esophagitis Take 1 tablet by mouth at bedtime as needed. 30 tablet 2 04/23/2019 06/15/2024 Discontinued Comment on above: Take 1 tablet by lily th at bedtime as needed. Flash Glucose Sensor (Freestyle Cielo 14 Day Sensor) kit (20 sources) Start: 11-05-2019 End: 12-26-2019 Flash Glucose Sensor (Freestyle Cielo 14 Day Sensor) kit Discontinued 0 .ROUTE .MEDSUPPLY 2 November 05, 2019 2:57pm December 26, 2019 7:29pm As directed Start: 11-05-2019 End: 12-26-2019 Flash Glucose Sensor (Freest yle Cielo 14 Day Sensor) kit Discontinued 0 .ROUTE .MEDSUPPLY 2 November 04, 2019 11:00pm December 26, 2019 6:29pm As directed Start: 11-05-2019 End: 12-26-2019 Flash Glucose Sensor (Freest yle Cielo 14 Day Sensor) kit Discontinued 0 .ROUTE .MEDSUPPLY 2 November 05, 2019 12:00am December 26, 2019 7:29pm As directed Flash Glucose Sensor (Freest yle Cielo 2 Sensor) kit (20 sources) Start: 07-18-2021 End: 01-10-2022 Flash Glucose Sensor (Freest yle Cielo 2 Sensor) kit Discontinued 0 .ROUTE .MEDSUPPLY 2 July 18, 2021 10:56am January 10, 2022 1:43pm As directed Start: 07-18-2021 End: 01-10-2022 Flash Glucose Sensor (Freest yle Cielo 2 Sensor) kit Discontinued 0 .ROUTE .MEDSUPPLY 2 July 18, 2021 9:56am January 10, 2022 12:43pm As directed Start: 07-18-2021 Flash Glucose Sensor (Freestyle Cielo 2 Sensor) kit Active 0 .ROUTE .MEDSUPPLY 2 July 18, 2021 10:56am As directed Start: 01-03-2021 End: 07-18-2021 Flash Glucose Sensor (Freest yle Cileo 2 Sensor) kit Discontinued 0 .ROUTE .MEDSUPPLY 2 January 03, 2021 10:09am July 18, 2021 9:56am As directed Start: 01-03-2021 End: 07-18-2021 Flash Glucose Sensor (Freest yle Cielo 2 Sensor) kit Discontinued 0 .ROUTE .MEDSUPPLY 2 January 03, 2021 11:09am July 18, 2021 10:56am As directed Start: 01-03-2021 Flash Glucose Sensor (Freestyle Cielo 2 Sensor) kit Active 0 .ROUTE .MEDSUPPLY 2 January 03, 2021 11:09am As directed Start: 02-03-2020 End: 01-03-2021 Flash Glucose Sensor (Freest yle Cielo 2 Sensor) kit Discontinued 0 .ROUTE .MEDSUPPLY February 03, 2020 11:52am January 03, 2021 10:09am As directed Start: 02-03-2020 End: 01-03-2021 Flash Glucose Sensor (Freest yle Cielo 2 Sensor) kit Discontinued 0 .ROUTE .MEDSUPPLY 2 February 03, 2020 12:52pm January 03, 2021 11:09am As directed Start: 01-03-2020 End: 02-03-2020 Flash Glucose Sensor (Freest yle Cielo 2 Sensor) kit Discontinued 0 .ROUTE .MEDSUPPLY 2 January 03, 2020 12:07pm February 03, 2020 11:52am As directed Start: 01-03-2020 End: 02-03-2020 Flash Glucose Sensor (Freest yle Cielo 2 Sensor) kit Discontinued 0 .ROUTE .MEDSUPPLY 2 January 03, 2020 1:07pm February 03, 2020 12:52pm As directed Start: 12-26-2019 End: 01-03-2020 Flash Glucose Sensor (Freest yle Cielo 2 Sensor) kit Discontinued 0 .ROUTE .MEDSUPPLY 2 December 26, 2019 7:29pm January 03, 2020 1:07pm As directed Start: 12-26-2019 End: 01-03-2020 Flash Glucose Sensor (Freest yle Cielo 2 Sensor) kit Discontinued 0 .ROUTE .MEDSUPPLY 2 December 25, 2019 11:00pm January 03, 2020 12:07pm As directed Start: 12-26-2019 End: 01-03-2020 Flash Glucose Sensor (Freest yle Cielo 2 Sensor) kit Discontinued 0 .ROUTE .MEDSUPPLY 2 December 26, 2019 12:00am January 03, 2020 1:07pm As directed fluticasone propionate 0.05 mg/actuat metered dose nasal spray (19 sources) Corticosteroid Start: 04-07-2023 End: 05-14-2023 take 50 ug nasal route once daily Fluticasone Propionate (24 Hour Allergy Relief) 50 mcg/actuation spray,suspension Discontinued 2 NMA INTRANASAL DAILY April 07, 2023 1:00am May 14, 2023 2:19pm administer into each nostril Start: 04-07-2023 End: 05-14-2023 take 1 spray(s) nasal route once daily Fluticasone Propionate (24 Hour Allergy Relief) 50 mcg/actuation spray,suspension Discontinued 2 SPRAY INTRANASAL DAILY April 07, 2023 1:00am May 14, 2023 2:19pm administer into each nostril furosemide 40 mg oral tablet (20 sources) Loop Diuretic Start: 07-30-2023 End: 01-31-2024 take 2 tablets by mouth twice daily Furosemide 40 mg tablet Discontinued 80 mg PO TWICE A DAY July 30, 2023 2:23pm January 31, 2024 11:44am Start: 07-30-2023 take 80 mg by mouth once daily Furosemide Active 80 MG PO DAILY July 30, 2023 2:23pm Start: 07-03-2023 End: 07-30-2023 take 1 tablet by mouth once daily Furosemide 40 mg tablet Discontinued 40 mg PO DAILY July 03, 2023 12:00am July 30, 2023 2:24pm gabapentin 800 mg oral tablet (20 sources) Anti-epileptic Agent Start: 04-27-2018 End: 11-05-2019 take 1 tablet by mouth once daily Gabapentin 800 MG tablet Discontinued 800 mg PO DAILY April 27, 2018 1:00am November 05, 2019 2:13pm glucagon (rdna) 1 mg injection (2 sources) Antihypoglycemic Agent Start: 08-24-2024 End: 08-28-2024 1 mg, IntraMUSCular, PRN, low blood sugar, Blood glucose less than 70 mg/dL and patient NOT ALERT or NPO and does not have IV access., Starting on Fri08/24/24 at 1139, After administration, attempt intravenous access and start D5W at 100 mL/hr. Repeat blood glucose in 15 minutes x2 and notify provider. 50 ml glucose 50 mg/ml injection (20 sources) Start: 08-24-2024 End: 08-28-2024 100 mL/hr, IntraVENous, PRN, Blood sugar less than 70mg/dL, Starting on Fri08/24/24 at 1139, Start infusion following administration of dextrose 50% or glucagon. Start: 08-24-2024 End: 08-28-2024 12.5 g, IntraVENous, PRN, lo w blood sugar, Blood glucose less than 70 mg/dL and patient NOT ALERT or NPO., Starting on Fri08/24/24 at 1139, If patient does not respond within 5 minutes, repeat dose x1. Start D5W at 100 mL/hour until ordering provider can be reached. Repeat blood glucose in 15 minutes. If blood glucose is less than 70 mg/dL, repeat treatment and recheck blood glucose in 15 minutes x2. If using Glucostabilizer, dose as instructed per system. Start: 07-30-2019 End: 09-21-2024 glucose 4 gram chewable tabl et Take 4 tablets by mouth as needed. 50 tablet 3 07/30/2019 09/21/2024 Discontinued Comment on above: Take 4 tablets by [facility] as needed. 1 ml heparin sodium, porcine 1000 unt/ml injection (6 sources) Unfractionated Heparin, Anti-coagulant Start: 08-23-2024 End: 08-28-2024 1,600 Units, IntraCATHeter, As needed, line care, Starting on Fri08/23/24 at 2158 Start: 08-23-2024 End: 08-28-2024 inject 1 dose by subcutaneous injection three times daily 5,000 Units, SubCUTAneous, Every 8 hours scheduled (3 times per day), First dose on Fri08/23/24 at 1400 homatropine methylbromide 0.3 mg/ml / HYDROcodone bitartrate 1 mg/ml oral solution (20 sources) Opioid Agonist, Cholinergic Muscarinic Agonist Start: 04-29-2018 End: 05-06-2018 take 1 [tsp_us] by mouth every six hours as needed for cough Hydrocodone-Homatropine 5 ML syrup Discontinued 5 mL PO EVERY 6 HOURS 3 7 April 29, 2018 1:00am May 05, 2018 1:00am May 06, 2018 1:09am 1 tsp every 6 hours as needed for cough Start: 04-29-2018 End: 05-06-2018 take 1 [tsp_us] by mouth every six hours as needed for cough Hydrocodone-Homatropine Discontinued 5 M L PO EVERY 6 HOURS 3 7 April 29, 2018 1:00am May 06, 2018 1:09am 1 tsp every 6 hours as needed for cough hydroCHLOROthiazide 12.5 mg oral tablet (20 sources) Thiazide Diuretic Start: 12-19-2022 End: 12-23-2022 take 1 tablet by mouth once daily Hydrochlorothiazide 12.5 mg tablet Discontinued 12.5 mg PO DAILY December 19, 2022 12:00am December 23, 2022 3:09pm Start: 02-09-2018 End: 11-05-2019 Hydrochlorothiazide 25 MG ta blet Discontinued 12.5 mg PO DAILY February 09, 2018 1:00am November 05, 2019 2:12pm Start: 02-09-2018 End: 11-05-2019 take 12.5 mg by mouth once daily Hydrochlorothiazide Discontinued 12.5 MG PO DAILY February 09, 2018 1:00am November 05, 2019 2:12pm ibuprofen 800 mg oral tablet (20 sources) Nonsteroidal Anti-inflammatory Drug Start: 11-22-2020 End: 06-15-2024 take 1 tablet by mouth every eight hours at mealtime for pain ibuprofen (MOTRIN) 800 mg tablet take 1 tablet by mouth every 8 hours with food if needed for pain 30 tablet 11/22/2020 06/15/2024 Discontinued Start: 02-04-2020 End: 11-20-2020 take 1 tablet by mouth every eight hours at mealtime for pain ibuprofen (MOTRIN) 800 mg tablet take 1 tablet by mouth every 8 hours with food if needed for pain 30 tablet 02/04/2020 11/20/2020 Discontinued Comment on above: take 1 tablet by lily th every 8 hours with food if needed for pain insulin aspart, human 100 unt/ml injectable solution (20 sources) Insulin Analog Start: 12-19-2022 End: 08-20-2024 Insulin Aspart U-100 (Novolog U-100 Insulin Aspart) 100 unit/mL solution Discontinued 80 U continuous subcutaneous infusion .continuous 72 August 18, 2023 12:18pm February 25, 2024 11:40am Start: 11-05-2019 End: 05-14-2023 Insulin Aspart U-100 100 uni t/mL (3 mL) insulin pen Discontinued 40 U SC THREE TIMES A DAY 36 December 17, 2021 3:29pm May 14, 2023 2:19pm Start: 07-30-2019 insulin aspart U-100 (NOVOLOG FLEXPEN U-100 INSULIN) 100 unit/mL (3 mL) Indications: Uncontrolled type 1 diabetes mellitus with proliferative retinopathy Take 30 units before meals Do not take if you do not eat 5 Pen 5 07/30/2019 Active Start: 09-06-2015 End: 11-05-2019 Insulin Aspart U-100 100 UNI TS/ML insulin pen Discontinued 0 U SC 3 TIMES DAILY WITH MEALS September 06, 2015 12:00am November 05, 2019 2:20pm Start: 09-06-2015 End: 11-05-2019 Insulin Aspart U-100 Discont inued 0 UNITS SC 3 TIMES DAILY WITH MEALS September 06, 2015 12:00am November 05, 2019 2:20pm Start: 09-15-2013 End: 12-21-2014 Insulin Aspart U-100 (Novolo g Flexpen U-100 Insulin) 100 UNITS/ML Flexpen Discontinued 15 U SQ 3 TIMES DAILY WITH MEALS September 15, 2013 12:00am December 21, 2014 2:36pm Comment on above: Take 30 units before meals Do not take if you do not eat insulin glargine 100 unt/ml injectable solution (20 sources) Insulin Analog Start: 08-27-2024 End: 08-28-2024 inject 45 [IU] by subcutaneous injection once daily 45 Units, SubCUTAneous, Nightly, First dose (after last modification) on Fri08/27/24 at 2100 Start: 08-25-2024 End: 08-27-2024 inject 50 [IU] by subcutaneous injection once daily 50 Units, SubCUTAneous, Nightly, First dose (after last modification) on Fri08/25/24 at 2100 Start: 08-24-2024 End: 08-25-2024 40 Units, SubCUTAneous, Nigh tly, First dose on Fri08/24/24 at 2100, 2 hours after administration PLEASE HAVE PATIENT REMOVE INSULIN PUMP Start: 03-30-2024 End: 08-10-2024 Insulin Glargine (Lantus Brinda ostar U-100 Insulin) 100 unit/mL (3 mL) insulin pen Discontinued 20 U SC EVERY MORNING as needed for PRN July 16, 2024 12:00am August 10, 2024 8:50pm Start: 01-07-2020 End: 01-07-2020 Insulin Glargine 100 unit/mL (3 mL) insulin pen Discontinued 70 U SC DAILY January 07, 2020 1:02pm January 07, 2020 1:06pm am Start: 11-05-2019 End: 01-07-2020 Insulin Glargine 100 unit/mL (3 mL) insulin pen Discontinued 80 U SC DAILY November 05, 2019 2:18pm January 07, 2020 1:03pm am Start: 07-30-2019 End: 09-21-2024 insulin glargine (LANTUS BRINDA OSTAR, BASAGLAR KWIKPEN) 100 unit/mL (3 mL) Inject 80 Units subcutaneously once daily. 07/30/2019 09/21/2024 Discontinued Start: 07-30-2019 insulin glargi ne (LANTUS SOLOSTAR, BASAGLAR KWIKPEN) 100 unit/mL (3 mL) Inject 80 Units subcutaneously once daily. 0 07/30/2019 Active Start: 02-09-2018 End: 11-05-2019 inject 20 [IU] by subcutaneous injection twice daily Insulin Glargine 100 UNIT/ML insulin pen Discontinued 20 U SQ TWICE A DAY 0 February 09, 2018 11:39am November 05, 2019 2:20pm Start: 06-17-2016 End: 02-09-2018 Insulin Glargine (Basaglar K wikpen U-100) 100 UNIT/ML Insuln.Pen Discontinued 40 U SQ WITH BREAKFAST June 17, 2016 12:00am February 09, 2018 11:39am Start: 05-09-2013 End: 12-21-2014 Insulin Glargine (Lantus Brinda ostar U-100 Insulin) 100 UNITS/ML Pen Discontinued 40 U SC TWICE A DAY May 09, 2013 1:00am December 21, 2014 2:36pm Comment on above: Inject 80 Units subc utaneously once daily. insulin lispro 100 unt/ml injectable solution (2 sources) Insulin Analog Start: 08-25-2024 End: 08-28-2024 0-10 Units, SubCUTAneous, 3 times daily with meals, First dose (after last modification) on Fri08/25/24 at 1700, Give 1 unit of insulin for every 15 grams of carbohydrates patient eats. Patient must be able to count the grams of carbs. RN is to verify and divide the total grams of carbs by 15 to determine the dose (in units) of insulin. Round decimal points 0-0.4 down and 0.5-0.9 up. Insulin Lispro (Humalog) injection 0-12 Units (2 sources) Start: 08-26-2024 End: 08-28-2024 Insulin Lispro (Humalog) injection 0-12 Units Insulin Pump - (Patient Supplied) (2 sources) Start: 08-23-2024 End: 08-25-2024 SubCUTAneous, Continuous, Starting on Fri08/23/24 at 1315, Basal Rate(s): 1.2 units/h Bolus units per carbohydrate intake (insulin:CHO ratio): 1:50 Correction (insulin sensitivity) factor (mg/dL per unit of insulin): 1:50 Active Insulin Time: 2.5 h Estimated total daily insulin dose (units): 50, Pump Type (Brand/Model): OmniPod, What type of insulin is the patient using in their insulin pump? Insulin aspart Insulin Pump Cart,Auto,Bt-Cntr (Omnipod 5 G6 Intro Kit (Gen 5)) cartridge (20 sources) Start: 01-14-2022 End: 01-07-2023 Insulin Pump Cart,Auto,Bt-Cntr (Omnipod 5 G6 Intro Kit (Gen 5)) cartridge Discontinued 0 .Route 1 January 14, 2022 10:25am January 07, 2023 9:18am As directed Start: 01-14-2022 End: 01-07-2023 Insulin Pump Cart,Auto,Bt-Cn tr (Omnipod 5 G6 Intro Kit (Gen 5)) cartridge Discontinued 0 .Route 1 January 14, 2022 9:25am January 07, 2023 8:18am As directed Start: 11-19-2021 End: 01-14-2022 Insulin Pump Cart,Auto,Bt-Cn tr (Omnipod 5 G6 Intro Kit (Gen 5)) cartridge Discontinued 0 .Route 1 November 19, 2021 10:38am January 14, 2022 10:25am As directed Start: 11-19-2021 End: 01-14-2022 Insulin Pump Cart,Auto,Bt-Cn tr (Omnipod 5 G6 Intro Kit (Gen 5)) cartridge Discontinued 0 .Route 1 November 19, 2021 9:38am January 14, 2022 9:25am As directed Start: 10-08-2021 End: 11-19-2021 Insulin Pump Cart,Auto,Bt-Cn tr (Omnipod 5 G6 Intro Kit (Gen 5)) cartridge Discontinued 0 .Route 1 October 08, 2021 12:00am November 19, 2021 10:39am As directed Start: 10-08-2021 End: 11-19-2021 Insulin Pump Cart,Auto,Bt-Cn tr (Omnipod 5 G6 Intro Kit (Gen 5)) cartridge Discontinued 0 .Route 1 October 07, 2021 11:00pm November 19, 2021 9:39am As directed Start: 10-08-2021 Insulin Pump C art,Auto,Bt-Cntr (Omnipod 5 G6 Intro Kit (Gen 5)) cartridge Active 0 .Route 1 October 08, 2021 12:00am As directed Insulin Pump Cart,Automated, Bt (Omnipod 5 G6 Pods (Gen 5)) cartridge (20 sources) Start: 07-08-2023 End: 01-06-2024 Insulin Pump Cart,Automated, Bt (Omnipod 5 G6 Pods (Gen 5)) cartridge Discontinued 0 .Route July 08, 2023 1:03pm January 06, 2024 1:33pm 1 pod q 72 hours Start: 07-08-2023 Insulin Pump C art,Automated,Bt (Omnipod 5 G6 Pods (Gen 5)) cartridge Active 0 .Route July 08, 2023 1:03pm 1 pod q 72 hours Start: 01-07-2023 End: 07-08-2023 Insulin Pump Cart,Automated, Bt (Omnipod 5 G6 Pods (Gen 5)) cartridge Discontinued 0 .Route January 07, 2023 9:18am July 08, 2023 1:03pm 1 pod q 72 hours Start: 01-07-2023 Insulin Pump C art,Automated,Bt (Omnipod 5 G6 Pods (Gen 5)) cartridge Active 0 .Route January 07, 2023 9:18am 1 pod q 72 hours Start: 01-07-2023 Insulin Pump C art,Automated,Bt (Omnipod 5 G6 Pods (Gen 5)) cartridge Active 0 .Route January 07, 2023 8:18am 1 pod q 72 hours Start: 07-09-2022 End: 01-07-2023 Insulin Pump Cart,Automated, Bt (Omnipod 5 G6 Pods (Gen 5)) cartridge Discontinued 0 .Route July 09, 2022 12:58pm January 07, 2023 9:18am 1 pod q 72 hours Start: 07-09-2022 End: 01-07-2023 Insulin Pump Cart,Automated, Bt (Omnipod 5 G6 Pods (Gen 5)) cartridge Discontinued 0 .Route July 09, 2022 11:58am January 07, 2023 8:18am 1 pod q 72 hours Start: 01-14-2022 End: 07-09-2022 Insulin Pump Cart,Automated, Bt (Omnipod 5 G6 Pods (Gen 5)) cartridge Discontinued 0 .Route January 14, 2022 10:25am July 09, 2022 12:58pm 1 pod q 72 hours Start: 01-14-2022 End: 07-09-2022 Insulin Pump Cart,Automated, Bt (Omnipod 5 G6 Pods (Gen 5)) cartridge Discontinued 0 .Route January 14, 2022 9:25am July 09, 2022 11:58am 1 pod q 72 hours Start: 11-19-2021 End: 01-14-2022 Insulin Pump Cart,Automated, Bt (Omnipod 5 G6 Pods (Gen 5)) cartridge Discontinued 0 .Route November 19, 2021 10:38am January 14, 2022 10:25am 1 pod q 72 hours Start: 11-19-2021 End: 01-14-2022 Insulin Pump Cart,Automated, Bt (Omnipod 5 G6 Pods (Gen 5)) cartridge Discontinued 0 .Route November 19, 2021 9:38am January 14, 2022 9:25am 1 pod q 72 hours Start: 10-08-2021 End: 11-19-2021 Insulin Pump Cart,Automated, Bt (Omnipod 5 G6 Pods (Gen 5)) cartridge Discontinued 0 .Route October 08, 2021 12:00am November 19, 2021 10:39am 1 pod q 72 hours Start: 10-08-2021 End: 11-19-2021 Insulin Pump Cart,Automated, Bt (Omnipod 5 G6 Pods (Gen 5)) cartridge Discontinued 0 .Route October 07, 2021 11:00pm November 19, 2021 9:39am 1 pod q 72 hours Start: 10-08-2021 Insulin Pump C art,Automated,Bt (Omnipod 5 G6 Pods (Gen 5)) cartridge Active 0 .Route October 08, 2021 12:00am 1 pod q 72 hours Insulin Pump Cart,Automated, Bt cartridge (20 sources) Start: 02-25-2024 End: 04-01-2024 Insulin Pump Cart,Automated, Bt cartridge Discontinued 0 .Route February 25, 2024 11:39am April 01, 2024 11:49am 1 pod q 72 hours Start: 01-06-2024 End: 02-25-2024 Insulin Pump Cart,Automated, Bt cartridge Discontinued 0 .Route January 06, 2024 1:33pm February 25, 2024 11:40am 1 pod q 72 hours Insulin Pump Cartridge (Omnipod Dash 5 Pack Pod) cartridge (20 sources) Start: 03-22-2020 End: 05-14-2023 Insulin Pump Cartridge (Omni pod Dash 5 Pack Pod) cartridge Discontinued 0 .ROUTE .MEDSUPPLY March 22, 2020 4:44pm May 14, 2023 2:39pm change every 72 hours Start: 03-22-2020 End: 05-14-2023 Insulin Pump Cartridge (Omni pod Dash 5 Pack Pod) cartridge Discontinued 0 .ROUTE .MEDSUPPLY March 22, 2020 3:44pm May 14, 2023 1:39pm change every 72 hours Start: 03-22-2020 Insulin Pump C artridge (Omnipod Dash 5 Pack Pod) cartridge Active 0 .ROUTE .MEDSUPPLY March 22, 2020 4:44pm change every 72 hours Start: 01-13-2020 End: 03-22-2020 Insulin Pump Cartridge (Omni pod Dash 5 Pack Pod) cartridge Discontinued 0 .ROUTE .MEDSUPPLY January 13, 2020 11:31am March 22, 2020 4:44pm change every 72 hours Start: 01-13-2020 End: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 Cannot exclude recent infection if the specimen collected within 4-6 weeks after infection. Performed By: #### 2 4331-1, 3016-3, 71093-8 #### [facility] CLIA [id number] [address] [place] [address] [place] CMV IgG SerPl-aCncon 025 CMV IgG Qn <0.20 Normal [facility] Comment on above: Order Comment: Speci men Type: BLOOD SPECIMEN [facility] Address: [address] [place] [address] Result Comment: The magnitude of the measured result is not indicative of the amount of antibody present. U/mL values are interpreted as follows: Negative <0.6 Equivocal 0.6 to <0.70 Positive >=0.70 Performed By: #### 2 4331-1, 3016-3, 86662-2 #### [facility] CLIA [id number] [address] [place] [address] OF [facility] CNOVon 09-21-2024 CNOV Office Visit (INTMWS) LAURIE GONZALES ([id number]) 1980 M Date Time Provider Department 09/21/24 11:40 AM KRISTAL SULLIVAN INTMWS During your visit today, we recorded the following information about you: Pulse Respiration Blood pressure Weight 82/minute 16/minute 135/80 89.4 kg Kristal Sullivan MD 09/21/2024 12:20 PM Addendum We discussed your recent health concerns and ongoing care: - Dialysis and Fistula Use: - You are currently undergoing dialysis at [facility] on Friday, Friday, and Friday. - Your left forearm fistula is functioning well and is now being used for dialysis. - Pancreas and Kidney Transplant: - You are on the transplant list as a backup for a pancreas and kidney transplant. - Due to your recent infection, you are not eligible for transplant until after January 25. If a match becomes available before then, you will be passed over. - Recent Infection and Antibiotics: - You had a port infection that required hospitalization and removal of the port. - You are currently on IV antibiotics, with your last dose scheduled for this Friday. - Please ensure your mother administers the remaining doses as instructed. - Endoscopy and Swallowing Issues: - You recently underwent an endoscopy with your application security developer, Dr. Andres Angulo. A stricture in your throat was identified and treated with balloon dilation. Biopsies taken during the procedure were negative. - Anemia and Lab Work: - Your hemoglobin level was 9.3, which is consistent with anemia of chronic disease. - You are not currently receiving iron infusions, but this may be revisited if needed. - A significant amount of blood work has been ordered by the transplant team at the [facility]. You can complete this testing locally at our facility rather than traveling to the main campus. - Vaccination: - You received a pneumonia vaccine today to help protect against infections. - Diabetes Management: - You are using an insulin pump to manage your diabetes. Please continue monitoring your blood sugar levels as instructed. Follow-Up and Next Steps: - Your next phone appointment with the [facility] transplant team is scheduled for September 04. You will also have an in-person appointment at the [facility] on September 21. - Complete the ordered blood work at our facility before your transplant appointments. - Continue attending dialysis sessions as scheduled and notify your house designer, Dr. Mckeon, or his nurse if you experience any issues. - If you develop any new symptoms, such as fever, worsening fatigue, or signs of infection, please contact our office immediately. Please let us know if you have any additional questions or concerns. Kristal Sullivan MD 09/22/2024 11:51 AM Signed Reason for Visit Follow up HPI Laurie Gonzales is a 44-year-old male with a history of HI, CKD on dialysis, and dysphagia, presenting for follow-up after a recent hospitalization for a port infection. Laurie was hospitalized on the for a port infection related to his dialysis. He initially presented to the ED with emesis and a fever of 103 degreeF, and was subsequently transferred to [place], where he was admitted for a week. The infection necessitated the removal of his port. He is currently on IV antibiotics, with his last dose scheduled for this Friday. During his hospitalization, he was evaluated by a application security developer due to dysphagia. An endoscopy revealed a stricture, which was dilated, and biopsies were taken from erythematous areas, all of which returned negative results. Laurie has a functioning AV fistula in his left forearm, which has been in place since January 04 of last year. He is currently undergoing dialysis at [facility] on Mondays, Wednesdays, and Fridays. He reports being contacted by the [facility] as a backup for a pancreas transplant and is hopeful to return to work soon. Laurie was previously employed part-time at [employer] but was let go due to multiple surgeries and his current medical condition. He has since been approved for Social Security but had to wait five months without income before receiving benefits. He is not eligible for unemployment due to his part-time status. He is under the care of house designer Dr. Mckeon, whom he has seen twice. Most of his interactions are with Dr. Mckeon's nurse at [facility], whom he describes as super nice. Laurie has a phone appointment with the transplant center at the [facility] on September 04 and an in-person appointment on the . He is also using an insulin pump for diabetes management. Social History Tobacco Use Smoking status: Never Smokeless tobacco: Never Substance Use Topics Alcohol use: No Drug use: No Past medical history, appointments, medications, allergies reviewed. Pertine (more content not included)... Normal [facility] DRUG SCREEN 9 PANEL, SERUM O R PLASMAon 09-21-2024 AMPHETAMINES, S/P, SCREEN Negative Normal [facility] Comment on above: Order Comment: Speci men Type: BLOOD SPECIMEN [facility] Address: [address] [place] [address] Result Comment: Pres umptively Negative by immunoassay. Testing by mass spectrometry is available on request. Interpretive Information: Amphetamines Screen, S/P Methodology: Immunoassay Positive Cutoff: 20 ng/mL Performed By: #### 2 4331-1, 3016-3, 93737-7 #### [facility] CLIA [id number] [address] [place] [address] [place] BARBITURATES, S/P, SCREEN Negative Normal [facility] Comment on above: Order Comment: Speci men Type: BLOOD SPECIMEN [facility] Address: [address] [place] [address] Result Comment: Pres umptively Negative by immunoassay. Testing by mass spectrometry is available on request. Interpretive Information: Barbiturates Screen, S/P Methodology: Immunoassay Positive Cutoff: 50 ng/mL Performed By: #### 2 4331-1, 3016-3, 26652-5 #### [facility] CLIA [id number] [address] [place] [address] [place] BENZODIAZEPINES, S/P, SCREEN Negative Normal [facility] Comment on above: Order Comment: Speci men Type: BLOOD SPECIMEN [facility] Address: [address] [place] [address] Result Comment: Pres umptively Negative by immunoassay. Testing by mass spectrometry is available on request. Interpretive Information: Benzodiazepines Screen, S/P Methodology: Immunoassay Positive Cutoff: 50 ng/mL Performed By: #### 2 4331-1, 3015-3, 56671-8 #### [facility] CLIA [id number] [address] [place] [address] [place] BUPRENORPHINE, S/P, SCREEN Negative Normal [facility] Comment on above: Order Comment: Speci men Type: BLOOD SPECIMEN [facility] Address: [address] [place] [address] Result Comment: Pres umptively Negative by immunoassay. Testing by mass spectrometry is available on request. Interpretive Information: Buprenorphine Screen, S/P Methodology: Immunoassay Positive Cutoff: 1 ng/mL Performed By: #### 2 4331-1, 3016-3, 85936-6 #### [facility] CLIA [id number] [address] [place], [place] [id number] [place] CANNABINOIDS, S/P, SCREEN Negative Normal [facility] Comment on above: Order Comment: Speci men Type: BLOOD SPECIMEN [facility] Address: [address] [place] [address] Result Comment: Pres umptively Negative by immunoassay. Testing by mass spectrometry is available on request. Interpretive Information: Carboxy-THC Screen, S/P Methodology: Immunoassay Positive Cutoff: 20 ng/mL This test does not distinguish between the delta-8 and delta-9 forms of Carboxy-THC or their metabolites. Performed By: #### 2 4331-1, 3016-3, 04948-5 #### [facility] CLIA [id number] [address] [place] [address] [place] COCAINE, S/P, SCREEN Negative Normal [facility] Comment on above: Order Comment: Speci men Type: BLOOD SPECIMEN [facility] Address: [address] [place] [address] Result Comment: Pres umptively Negative by immunoassay. Testing by mass spectrometry is available on request. Interpretive Information: Cocaine Screen, S/P Methodology: Immunoassay Positive Cutoff: 20 ng/mL Performed By: #### 2 4331-1, 3016-3, 74958-8 #### [facility] CLIA [id number] [address] [place] [address] [place] DRUG SCREEN COMMENTS, SERUM OR PLASMA See Note Normal [facility] Comment on above: Order Comment: Speci shaina Type: BLOOD SPECIMEN [facility] Address: [address] [place] [address] Result Comment: Inte rpretive Information: Drug Screen with Reflex to Quant S/P Presumptive negative results for drug(s) and/or drug metabolite(s) may indicate non-compliance, inappropriate timing of specimen collection relative to drug administration, poor drug absorption, or limitations of testing. The concentration at which the screening test can detect a drug or metabolite varies within a drug class. For medical purposes only; not valid for forensic use. This test was developed and its performance characteristics determined by [facility]. It has not been cleared or approved by the [place] Food and Drug Administration. This test was performed in a CLIA certified laboratory and is intended for clinical purposes. Performed By: [facility] [address] [place] [id number] [employer] Worker: Anirudh Coats MD, PhD CLIA Number: [id number] Performed By: #### 2 4331-1, 3015-05, #### [facility] CLIA [id number] [address] [place] [address] [place] METHADONE, S/P, SCREEN Negative Normal [facility] Comment on above: Order Comment: Speci men Type: BLOOD SPECIMEN [facility] Address: [address] [place] [address] Result Comment: Pres umptively Negative by immunoassay. Testing by mass spectrometry is available on request. Interpretive Information: Methadone Screen, S/P Methodology: Immunoassay Positive Cutoff: 25 ng/mL Performed By: #### 2 4331-1, 3015-05, #### [facility] CLIA [id number] [address] [place] [address] [place] METHAMPHETAMINE, S/P, SCREEN Negative Normal [facility] Comment on above: Order Comment: Speci men Type: BLOOD SPECIMEN [facility] Address: [address] [place] [address] Result Comment: Pres umptively Negative by immunoassay. Testing by mass spectrometry is available on request. Interpretive Information: Methamphetamine Screen, S/P Methodology: Immunoassay Positive Cutoff: 20 ng/mL Performed By: #### 2 4331-1, 3015-05, #### [facility] CLIA [id number] [address] [place] [address] [place] OPIATES, S/P, SCREEN Negative Normal [facility] Comment on above: Order Comment: Speci men Type: BLOOD SPECIMEN [facility] Address: [address] [place] [address] Result Comment: Pres umptively Negative by immunoassay. Testing by mass spectrometry is available on request. Interpretive Information: Opiates Screen, S/P Methodology: Immunoassay Positive Cutoff: 20 ng/mL Performed By: #### 2 4331-1, 3015-3, 64693-0 #### [facility] CLIA [id number] [address] [place] [address] [place] OXYCODONE, S/P, SCREEN Negative Normal [facility] Comment on above: Order Comment: Speci men Type: BLOOD SPECIMEN [facility] Address: [address] [place] [address] Result Comment: Pres umptively Negative by immunoassay. Testing by mass spectrometry is available on request. Interpretive Information: Oxycodone/Oxymorphone Screen, S/P Methodology: Immunoassay Positive Cutoff: 20 ng/mL Performed By: #### 2 4331-1, 3, #### [facility] CLIA [id number] [address] [place] [address] [place] PHENCYCLIDINE, S/P, SCREEN Negative Normal [facility] Comment on above: Order Comment: Speci men Type: BLOOD SPECIMEN [facility] Address: [address] [place] [address] Result Comment: Pres umptively Negative by immunoassay. Testing by mass spectrometry is available on request. Interpretive Information: Phencyclidine Screen, S/P Methodology: Immunoassay Positive Cutoff: 10 ng/mL Performed By: #### 2 4331-1, 3, 22284-8 #### [facility] CLIA [id number] [address] [place] [address] [place] EBV capsid IgG Qn (S)on 08-30 EBV VCA IGG, QUAL Positive Abnormal Negative [facility] Comment on above: Order Comment: Speci men Type: BLOOD SPECIMEN [facility] Address: [address] [place] [address] Result Comment: The result suggests recent or past EBV infection. The final interpretation should be done in the context of other EBV serology panel results. Performed By: #### 2 4331-1, 3015-3, #### [facility] CLIA [id number] [address] [place] [address] [place] HBV core Ab Ser Qlon 025 HBV core Ab Ql (S) Negative Normal Negative [facility] Comment on above: Order Comment: Speci men Type: BLOOD SPECIMEN [facility] Address: [address] [place] [address] Result Comment: No e vidence of current or past infection with Hepatitis B virus. Should recent infection be suspected, repeat testing may be considered 3-4 weeks after this draw. Performed By: #### 2 4331-1, 3015-05, #### [facility] CLIA [id number] [address] [place] [address] [place] HBV surface Ab Ql (S)on 08-30 HBV surface Ab Qn (S) 99.55 mIU/mL Normal [facility] Comment on above: Order Comment: Speci men Type: BLOOD SPECIMEN [facility] Address: [address] [place] [address] Result Comment: <8 m IU/mL: No serological evidence of immunity to Hepatitis B Virus. >/= 8 to <12 mIU/mL: No serological evidence of immunity to Hepatitis B Virus. >/= 12 mIU/mL: Consistent with serological evidence of immunity to Hepatitis B Virus. Performed By: #### 2 4331-1, 3015-05, #### [facility] CLIA [id number] [address] [place] [address] [place] HBV surface Ab Ser Qlon 08-30 HBV surface Ab Ql (S) Positive Normal [facility] Comment on above: Order Comment: Speci men Type: BLOOD SPECIMEN [facility] Address: [address] [place] [address] Result Comment: Cons istent with serological evidence of immunity to Hepatitis B Virus. Performed By: #### 2 4331-1, 3015-3, #### [facility] CLIA [id number] [facility] [place] [address] [place] HBV surface Ag Ser Qlon 08-30 HBV surface Ag Ql (S) Negative Normal Negative [facility] Comment on above: Order Comment: Speci men Type: BLOOD SPECIMEN [facility] Address: [address] [place] [address] Performed By: #### 2 4331-1, 3016-3, 17294-6 #### [facility] CLIA [id number] [address] [place] [address] [place] HCV Ab Ser Qlon 09-21-2024 HCV Ab Ql (S) Negative Normal Negative [facility] Comment on above: Order Comment: Speci men Type: BLOOD SPECIMENOrdering Facility: [facility] Address: [address] [place] [address] Result Comment: The result suggests no evidence of infection with Hepatitis C virus. Should recent infection be suspected, repeat testing may be considered 4-6 weeks after this draw. Performed By: #### 1 6128-1 ####[facility] [id number] [place] [address] [place] HEMOGLOBIN A1C (POC)on 09-21 HbA1c (Bld) [Mass fraction] 7.4 % Abnormal 4.3 - 5. 6 % [facility] Comment on above: Location:[address], [facility] Point of care (POC) Hemoglobin A1c (HGBA1C) testing is intended to assess glucose control and provide a management tool for patients known to have diabetes and their healthcare providers. Target HGBA1C levels may depend on specific clinical circumstances. POC HGBA1C is not intended for use as a diagnostic or screening test; laboratory-based testing should be used for diagnostic purposes. The following information is supplemental and may not be applicable to specific diabetes management situations: The POC device tooling manager provides a normal range of 4.2% to 6.5% for the HGBA1C POC test. However, the [place] Diabetes Association guidelines indicate that patients with HGBA1C in the range of 5.7% to 6.4% are at increased risk for development of diabetes and that intervention by lifestyle modification may be beneficial. A HGBA1C level greater than or equal to 6.5% is considered diagnostic of diabetes, pending confirmatory testing. Use of HGBA1C testing to evaluate glucose control may not be appropriate for patients with hemoglobin variants or other conditions (e.g. anemia) that alter red blood cell lifespan. Interpretation and review of laboratory results Abnormal [facility] HEPATITIS A ANTIBODY, IGGon 09-21-2024 HAV IgG Ql (S) Negative Normal [facility] Comment on above: Order Comment: Speci shaina Type: BLOOD SPECIMEN [facility] Address: [address] [place] [address] Result Comment: No s erological evidence of past exposure to hepatitis A virus or hepatitis A vaccination. Should recent infection be suspected, repeat testing is suggested 3-4 weeks after this draw. Performed By: #### 2 4331-1, 3015-3, 12844-0 #### [facility] CLIA [id number] [address] [place] [address] [place] HIV 1+2 Ab IA Qlon HIV 1 and 2 Ab IA.rapid Nom (S/P/Bld) Normal [facility] Comment on above: Order Comment: Bam merritt Type: BLOOD SPECIMEN [facility] Address: [address] [place] [address] Result Comment: Test not indicated. Performed By: #### 2 4331-1, 3015-3, 45355-9 #### [facility] CLIA [id number] [address] [place] [address] [place] HIV 1+2 Ab+HIV1 p24 Ag IA Ql Non-Reactive Normal Nonreactive [facility] Comment on above: Order Comment: Bam merritt Type: BLOOD SPECIMEN [facility] Address: [address] [place] [address] Performed By: #### 2 4331-1, 3015-3, 35901-0 #### [facility] CLIA [id number] [address] [place] [address] [place] HIV immunoassay testing algorithm interpretation (S/P/Bld) [Interp] Normal [facility] Comment on above: Order Comment: Speci men Type: BLOOD SPECIMEN [facility] Address: [address] [place] [address] Result Comment: No e vidence of HIV-1 or HIV-2 infection. Should recent infection be suspected, repeat testing may be considered 2-3 weeks after this draw. [place] Rev. Code 3701.243(E): This information has been disclosed to you from confidential records protected from disclosure by state law. You shall make no further disclosure of this information without the specific, written, and informed release of the individual to whom it pertains or as otherwise permitted by state law. A general authorization for the release of medical or other information is not sufficient for the purpose of the release of HIV test results or diagnoses. Performed By: #### 2 4331-1, 3016-3, 68498-4 #### [facility] CLIA [id number] [address] [place] [address] [place] HbA1c (Bld)on 09-21-2024 Average glucose Estimated from glycated hemoglobin (Bld) [Mass/Vol] 160 mg/dL Normal [facility] Comment on above: Order Comment: Speci men Type: BLOOD SPECIMENOrdering Facility: [facility] Address: [address] [place] [address] Result Comment: eAG: (Estimated average glucose) is a calculated value from HgbA1c and is sales representative of the average blood glucose level in the last 2-3 month period. Performed By: #### 5 5454-3 ####[facility] [id number] [place] [address] [place] HbA1c (Bld) [Mass fraction] 7.2 % High 4.3-5.6 [facility] Comment on above: Order Comment: Speci men Type: BLOOD SPECIMENOrdering Facility: [facility] Address: [address] [place] [address] Result Comment: [place] Diabetes Association guidelines indicate that patients with HgbA1c in the range 5.7-6.4% are at increased risk for development of diabetes, and intervention by lifestyle modification may be beneficial. HgbA1c greater or equal to 6.5% is considered diagnostic of diabetes. Performed By: #### 5 5454-3 ####[facility] [id number] [place] [address] [place] KID K/P PANC REC HLA AB SCRN on 09-21-2024 ALLOGEN RESULTS TO FOLLOW See Allogen re port to follow Normal [facility] Comment on above: Order Comment: Speci men Type: BLOOD SPECIMEN [facility] Address: [address] [place] [address] Performed By: #### K PRHAS #### [facility] CLIA [id number] [address] [place] [address] [place] MeV IgG Qn (S)on 09-21-2024 MEASLES IGG AB, QUAL Positive Normal Positive [facility] Comment on above: Order Comment: Speci men Type: BLOOD SPECIMEN [facility] Address: [address] [place] [address] Result Comment: The result suggests recent or past exposure to Measles virus or Measles vaccination. The current test does not detect neutralizing antibodies. Positive result may also be seen due to presence of passively-transferred antibodies. Please correlate with patient's history. Performed By: #### 2 4331-1, 3016-3, 97232-9 #### [facility] CLIA [id number] [address] [place], [place] [address] [place] Reagin and Treponema pallidu m IgG and IgM [Interp]on 09-21-2024 T. pallidum IgG+IgM IA Ql (S) Non-Reactive Normal Nonreactive [facility] Comment on above: Order Comment: Speci men Type: BLOOD SPECIMEN Ordering Facility: [facility] Address: [address] [place] [address] Performed By: #### 2 4331-1, 3015-3, #### [facility] CLIA [id number] [address] [place] [address] [place] Reagin+T pallidum IgG+IgM Se rPl-Impon 09-21-2024 Reagin and Treponema pallidum IgG and IgM [Interp] Cannot exclude recent Treponemal infection if specimen collected within 7-10 days after appearance of suspect lesions or 2-3 weeks after an exposure. Clinical correlation is required. Normal [facility] Comment on above: Order Comment: Speci men Type: BLOOD SPECIMEN Ordering Facility: [facility] Address: [address] [place] [address] Performed By: #### 2 4331-1, 3015-05, #### [facility] CLIA [id number] [address] [place] [address] [place] STRONGYLOIDES IGG BLon 09-21 STRONGYLOIDES IGG QUALITATIVE Negative Normal Negative [facility] Comment on above: Order Comment: Speci men Type: BLOOD SPECIMENOrdering Facility: [facility] Address: [address] [place] [address] Performed By: #### S TRSER ####[facility] [id number] [address] [place] T. gondii IgG Qn (S)on 09-21 TOXO IGG QUAL Negative Normal Negative [facility] Comment on above: Order Comment: Speci men Type: BLOOD SPECIMEN Ordering Facility: [facility] Address: [address] [place] [address] Result Comment: No s erological evidence of past exposure to Toxoplasma gondii. Cannot exclude recent infection if the specimen collected within 3-4 weeks after infection. Performed By: #### 2 4331-1, 3015-3, #### [facility] CLIA [id number] [address] [place] [address] [place] TSH SerPl-aCncon 09-21-2024 TSH Qn 2.700 m[IU]/L Normal 0.270-4.200 [facility] Comment on above: Order Comment: Speci men Type: BLOOD SPECIMENOrdering Facility: [facility] Address: [address] [place] [address] Performed By: #### 3 016-3 ####[facility] [id number] [address] [place] VARICELLA ZOSTER IGGon 09-21 VARICELLA ZOSTER IGG, QUAL Positive Normal Positive [facility] Comment on above: Order Comment: Speci men Type: BLOOD SPECIMEN Ordering Facility: [facility] Address: [address] [place] [address] Result Comment: The result suggests recent or past exposure to Varicella-Zoster virus or chickenpox vaccination or zoster vaccination. Positive result may also be seen due to presence of passively-transferred antibodies. Please correlate with patient's history. Performed By: #### 2 4331-1, 3016-3, 52562-8 #### [facility] CLIA [id number] [address] [place] [address] [place] 36on 09-20-2024 36 Received a call from nurse Bowen at [facility] stating pt missed dose of Iv abx last Friday, stop date is supposed to be on 09/22 (Friday), she is wondering if they can administrate missed dose last Friday to this Sunday 09/24. Gave her okay to administrate missed dose. Normal [facility] Esophagus Dual Contraston Esophagus Dual Contrast Normal [facility] Gastroenterology Visit Repor ton 09-07-2024 Gastroenterology Visit Report Normal [facility] Bedside Glucoseon 08-31-2024 FINGERSTICK GLU 120 mg/dL High 74-106 [facility] Comment on above: Result Comment: EDUARDO JACOBO OF PATIENT CARE PER NURSING PROTOCOL Performed By: #### L 501.080 ####[facility] [id number] [place], [place], [id number] Cardiology Visit Reporton Cardiology Visit Report Normal [facility] EGD Reporton 08-31-2024 EGD Report Normal [facility] deOrdered By: Bao Friend on 08-31-2024 Glucose [Mass/Vol] 120 mg/dL High 74-106 [facility] Comment on above: MANAGEMENT OF PATIEN T CARE PER NURSING PROTOCOL Immunohistochemical Stainson 08-31-2024 Immunohistochemical Stains Normal [facility] Comment on above: Performed By: #### P IMHI ####[facility] [id number] [place], [address] MR/POSTOP.ANEon 08-31-2024 MR/POSTOP.ANE Normal [facility] MR/[id number] 08-31-2024 MR/POSTOPAN2 [facility] 36on 08-30-2024 36 Received a call from nurse Dc at [facility] [phone] verifying pt's IV orders. Verified IV med, dose, frequency, EOT, weekly labs, no follow up appt in office. She was able to read back orders. They cannot do a CMP and only can do a CBC and BMP. Told her that thi is okay, otherwise, pt will need to go to outpt lab qweekly for lab work. She stated understanding. Fax number [phone]. Normal [facility] MR/PAT.ANEon 08-30-2024 MR/PAT.ANE [facility] CBC W Auto Differential pane l (Bld)on 08-28-2024 Basophils (Bld) [#/Vol] 0 10*3/uL 0.0 - 0.2 10*3/uL [facility] Basophils/100 WBC (Bld) 0.5 % 0.0 - 2.0 % [facility] Eosinophils (Bld) [#/Vol] 0.2 10*3/uL 0. 0 - 0.5 10*3/uL [facility] Eosinophils/100 WBC (Bld) 3 % 0.0 - 6.0 % [facility] Erythrocyte distribution width (RBC) [Ratio] 12.6 % 11.5 - 15.0 % [facility] Hematocrit (Bld) [Volume fraction] 27.9 % Low 40.0 - 52.0 % [facility] Hemoglobin (Bld) [Mass/Vol] 9.3 g/dL Low 13.0 - 18.0 g/dL [facility] Immature granulocytes (Bld) [#/Vol] 0.2 10*3/uL High NINF - 0.1 10*3/uL [facility] Immature granulocytes/100 WBC (Bld) 3.8 % High 0.0 - 2.0 % [facility] Interpretation and review of laboratory results Abnormal [facility] Lymphocytes (Bld) [#/Vol] 1.4 10*3/uL 1. 0 - 4.3 10*3/uL [facility] Lymphocytes/100 WBC (Bld) 22 % 15 .0 - 45.0 % [facility] MCH (RBC) [Entitic mass] 30.2 pg 26. 0 - 34.0 pg [facility] MCHC (RBC) [Mass/Vol] 33.3 % 30.5 - 36.0 % [facility] MCV (RBC) [Entitic vol] 90.6 fL 77.0 - 99.0 fL [facility] Monocytes (Bld) [#/Vol] 0.7 10*3/uL 0.0 - 0.9 10*3/uL [facility] Monocytes/100 WBC (Bld) 11.5 % 5.0 - 13.0 % [facility] Neutrophils (Bld) [#/Vol] 3.8 10*3/uL 1. 8 - 7.5 10*3/uL [facility] Neutrophils/100 WBC (Bld) 59.2 % 38 .0 - 82.0 % [facility] Nucleated RBC/100 WBC (Bld) [Ratio] 0 % [facility] Platelet mean volume (Bld) [Entitic vol] 9.2 fL 9.0 - 12.7 fL [facility] Platelets (Bld) [#/Vol] 182 10*3/uL 140 - 440 10*3/uL [facility] RBC (Bld) [#/Vol] 3.08 10*6/uL Low 4.40 - 5.9 0 10*6/uL [facility] WBC (Bld) [#/Vol] 6.4 10*3/uL 3.6 - 10.7 10*3/uL [facility] CBC WITH AUTO DIFFERENTIALon 08-28-2024 Basophils (Bld) [#/Vol] 0.0 10*3/uL Normal 0.0-0.2 [facility] Comment on above: Performed By: #### L [id number] ####Facilities Operator: RORO LUNDBERG ([phone])[facility] [place] [address] Basophils/100 WBC (Bld) 0.5 % Normal 0.0-2.0 [facility] Comment on above: Performed By: #### L [id number] ####Facilities Operator: RORO LUNDBERG ([phone])[facility])[address] [place] [address] Eosinophils (Bld) [#/Vol] 0.2 10*3/uL Normal 0.0-0.5 [facility] Comment on above: Performed By: #### L [id number] ####Facilities Operator: RORO LUNDBERG ([phone])[facility])[address] [place] [address] Eosinophils/100 WBC (Bld) 3.0 % Normal 0.0-6.0 [facility] Comment on above: Performed By: #### L [id number] ####Facilities Operator: RORO LUNDBERG ([phone])[facility])[address] [place] [address] Erythrocyte distribution width (RBC) [Ratio] 12.6 % Normal 11.5-15.0 [facility] Comment on above: Performed By: #### L [id number] ####Facilities Operator: RORO LUNDBERG ([phone])[facility])[address] [place] [address] Hematocrit (Bld) [Volume fraction] 27.9 % Low 40.0-52.0 [facility] Comment on above: Performed By: #### L [id number] ####Facilities Operator: RORO LUNDBERG ([phone])[facility])[address] [place] [address] Hemoglobin (Bld) [Mass/Vol] 9.3 g/dL Low 13.0-18. 0 [facility] Comment on above: Performed By: #### L [id number] ####Facilities Operator: RORO LUNDBERG ([phone])[address] IMMATURE GRANS % 3.8 % High 0.0-2.0 [facility] Comment on above: Performed By: #### L [id number] ####Facilities Operator: RORO LUNDBERG ([phone])[facility])[address] [place] [address] IMMATURE GRANS ABSOLUTE 0.2 10*3/uL High <0.1 [facility] Comment on above: Performed By: #### L [id number] ####Facilities Operator: RORO LUNDBERG ([phone])[address] Lymphocytes (Bld) [#/Vol] 1.4 10*3/uL Normal 1.0-4.3 [facility] Comment on above: Performed By: #### L [id number] ####Facilities Operator: RORO LUNDBERG ([phone])[address] Lymphocytes/100 WBC (Bld) 22.0 % Normal 15.0-45.0 [facility] Comment on above: Performed By: #### L [id number] ####Facilities Operator: RORO LUNDBERG ([phone])[address] MCH (RBC) [Entitic mass] 30.2 pg Normal 26.0-34.0 [facility] Comment on above: Performed By: #### L [id number] ####Facilities Operator: RORO LUNDBERG ([phone])[address] MCHC 33.3 % Normal 30.5-36.0 [facility] Comment on above: Performed By: #### L [id number] ####Facilities Operator: RORO LUNDBERG ([id number])[facility])[address] [place] [address] MCV (RBC) [Entitic vol] 90.6 fL Normal 77.0-99.0 [facility] Comment on above: Performed By: #### L [id number] ####Facilities Operator: RORO LUNDBERG ([phone])[facility])[address] [place] [address] Monocytes (Bld) [#/Vol] 0.7 10*3/uL Normal 0.0-0.9 [facility] Comment on above: Performed By: #### L [id number] ####Facilities Operator: RORO LUNDBERG ([phone])[facility])[address] [place] [address] Monocytes/100 WBC (Bld) 11.5 % Normal 5.0-13.0 [facility] Comment on above: Performed By: #### L [id number] ####Facilities Operator: RORO LUNDBERG ([phone])[facility])[address] [place] [address] NEUTROPHILS ABSOLUTE 3.8 10*3/uL Normal 1.8-7.5 [facility] Comment on above: Performed By: #### L [id number] ####Facilities Operator: RORO LUNDBERG ([phone])[facility])[address] [place] [address] Neutrophils/100 WBC (Bld) 59.2 % Normal 38.0-82.0 [facility] Comment on above: Performed By: #### L [id number] ####Facilities Operator: RORO LUNDBERG ([phone])[facility])[address] [place] [address] NRBC 0.0 /100 WBCs Normal 0.0-2.0 [facility] Comment on above: Performed By: #### L [id number] ####Facilities Operator: RORO LUNDBERG ([phone])[facility])[address] [place] [address] Platelet mean volume (Bld) [Entitic vol] 9.2 fL Normal 9.0-12.7 [facility] Comment on above: Performed By: #### L [id number] ####Facilities Operator: RORO LUNDBERG ([phone])[facility])[address] [place] [address] Platelets (Bld) [#/Vol] 182 10*3/uL Normal 140-440 [facility] Comment on above: Performed By: #### L [id number] ####Facilities Operator: RORO LUNDBERG ([phone])[facility])[address] [place] [address] RBC (Bld) [#/Vol] 3.08 10*6/uL Low 4.40-5.90 [facility] Comment on above: Performed By: #### L [id number] ####Facilities Operator: RORO LUNDBERG ([phone])[facility])[address] [place] [address] WBC (Bld) [#/Vol] 6.4 10*3/uL Normal 3.6-10.7 [facility] Comment on above: Performed By: #### L [id number] ####Facilities Operator: RORO LUNDBERG ([phone])[facility])[address] [place] [address] COMPREHENSIVE METABOLIC PANE Jose 08-28-2024 Albumin [Mass/Vol] 2.8 g/dL Low 3.5-5.0 [facility] Comment on above: Performed By: #### L AB103, LAB17, [id number] ####Facilities Operator: RORO LUNDBERG ([phone])[facility])[address] [place] [address] ALP [Catalytic activity/Vol] 176 U/L High 40-150 [facility] Comment on above: Performed By: #### L AB103, LAB17, [id number] ####Facilities Operator: RORO LUNDBERG ([phone])[facility])[address] [place] [address] [place] ALT [Catalytic activity/Vol] 40 U/L High <40 [facility] Comment on above: Performed By: #### Marichuy BAUER, LAB17, [id number] ####Facilities Operator: RORO LUNDBERG ([id number])[facility])[address] [place] [address] Anion gap [Moles/Vol] 9 mmol/L Normal 3-13 [facility] Comment on above: Performed By: #### Marichuy BAUER, LAB17, [id number] ####Facilities Operator: RORO LUNDBERG ([phone])[facility])[address] [place] [address] [place] AST [Catalytic activity/Vol] 48 U/L High <34 [facility] Comment on above: Performed By: #### Marichuy BAUER, LAB17, [id number] ####Facilities Operator: RORO LUNDBERG ([phone])[facility])[address] [place] [address] [place] Bilirubin [Mass/Vol] 0.2 mg/dL Normal <1.2 [facility] Comment on above: Performed By: #### Marichuy BAUER, LAB17, [id number] ####Facilities Operator: RORO LUNDBERG ([phone])[facility])[address] [place] [address] [place] Calcium [Mass/Vol] 9.0 mg/dL Normal 8.4-10.2 [facility] Comment on above: Performed By: #### Marichuy BAUER, LAB17, [id number] ####Facilities Operator: RORO LUNDBERG ([phone])[facility])[address] [place] [address] [place] Chloride [Moles/Vol] 102 mmol/L Normal 98-107 [facility] Comment on above: Performed By: #### Marichuy BAUER, LAB17, [id number] ####Facilities Operator: RORO LUNDBERG ([phone])[facility])[address] [place] [address] [place] CO2 [Moles/Vol] 22 mmol/L Normal 22-29 [facility] Comment on above: Performed By: #### Marichuy ABLilly, LAB17, [id number] ####Facilities Operator: RORO LUNDBERG ([phone])[facility])[address] [place] [address] Creatinine [Mass/Vol] 4.98 mg/dL High 0.72-1.25 [facility] Comment on above: Performed By: #### Marichuy BAUER, LAB17, [id number] ####Facilities Operator: RORO LUNDBERG ([phone])[facility])[address] [place] [address] GLOMERULAR FILTRATION RATE ML/MIN/1.73 SQ M.PREDICTED 14.0 mL/min/1.73m*2 Low >60.0 [facility] Comment on above: Result Comment: Calc ulation based on the Chronic Kidney Disease Epidemiology Collaboration (CKD-EPI) equation refit without adjustment for race Performed By: #### Marichuy BAUER, LAB17, [id number] ####Facilities Operator: RORO LUNDBERG ([phone])[facility])[address] [place] [address] Glucose [Mass/Vol] 271 mg/dL High 74-100 [facility] Comment on above: Performed By: #### Marichuy BAUER, LAB17, [id number] ####Facilities Operator: RORO LUNDBERG ([phone])[facility])[address] [place] [address] Potassium [Moles/Vol] 4.3 mmol/L Normal 3.5-5.1 [facility] Comment on above: Result Comment: [facility] potassium values may be up to 0.5 mmol/L lower than serum values. Performed By: #### Marichuy BAUER, LAB17, [id number] ####Facilities Operator: RORO LUNDBERG ([phone])[facility])[address] [place] [address] Protein [Mass/Vol] 6.3 g/dL Low 6.4-8.3 [facility] Comment on above: Performed By: #### Marichuy BAUER, LAB17, [id number] ####Facilities Operator: RORO [id number])[facility] ([facility])[address] [place] [address] Sodium [Moles/Vol] 133 mmol/L Low 136-145 [facility] Comment on above: Performed By: #### L AB103, LAB17, [id number] ####Facilities Operator: RORO LUNDBERG ([phone])[facility])[address] [place] [address] Urea nitrogen [Mass/Vol] 31 mg/dL High 8-21 [facility] Comment on above: Performed By: #### L AB103, LAB17, [id number] ####Facilities Operator: RORO LUNDBERG ([phone])[facility])[address] [place] [address] Comprehensive metabolic 1998 panelOrdered By: Evelyn Aquino on 08-28-2024 Albumin [Mass/Vol] 2.8 g/dL Low 3.5 - 5.0 g/dL [facility] ALP [Catalytic activity/Vol] 176 U/L High 40 - 150 U/L [facility] ALT [Catalytic activity/Vol] 40 U/L High NINF - 40 U/L [facility] Anion gap [Moles/Vol] 9 mmol/L 3 - 13 mmol/L [facility] AST [Catalytic activity/Vol] 48 U/L High [facility] - 34 U/L [facility] Bilirubin [Mass/Vol] 0.2 mg/dL [facility] - 1.2 mg/dL [facility] Calcium [Mass/Vol] 9 mg/dL 8.4 - 10. 2 mg/dL [facility] Chloride [Moles/Vol] 102 mmol/L 98 - 10 7 mmol/L [facility] CO2 [Moles/Vol] 22 mmol/L 22 - 29 mmol/L [facility] Creatinine [Mass/Vol] 4.98 mg/dL High 0.72 - 1.25 mg/dL [facility] GFR/1.73 sq M.predicted (S/P/Bld) [Vol rate/Area] 14 mL/min Low - PINF [facility] Comment on above: Calculation based on the Chronic Kidney Disease Epidemiology Collaboration (CKD-EPI) equation refit without adjustment for race Glucose [Mass/Vol] 271 mg/dL High 74 - 100 mg/dL [facility] Interpretation and review of laboratory results Abnormal [facility] Potassium [Moles/Vol] 4.3 mmol/L 3.5 - 5.1 mmol/L [facility] Comment on above: Plasma potassium willie ues may be up to 0.5 mmol/L lower than serum values. Protein [Mass/Vol] 6.3 g/dL Low 6.4 - 8.3 g/dL [facility] Sodium [Moles/Vol] 133 mmol/L Low 136 - 145 mmol/L [facility] Urea nitrogen [Mass/Vol] 31 mg/dL High 8 - 21 mg/d L [facility] - Chemistry and C hemistry - challengeon 08-28-2024 Glucose [Mass/Vol] 335 mg/dL High 70 - 100 mg/dL [facility] Glucose [Mass/Vol] 229 mg/dL High 70 - 100 mg/dL [facility] Magnesium [Mass/Vol] 2 mg/dL 1.6 - 2 .6 mg/dL [facility] MAGNESIUMon 08-28-2024 Magnesium [Mass/Vol] 2.0 mg/dL Normal 1.6-2.6 [facility] Comment on above: Result Comment: THEODORA [place] COMMENTS: Higher values can be expected in females during menses. Performed By: #### L AB103, LAB17, [id number] ####Facilities Operator: RORO LUNDBERG ([phone])[facility] ([facility])[address] [place] [address] Magnesium [Mass/Vol]on 08-28 Higher values can be expected in females during menses. [facility] No Panel Informationon 08-28 Interpretation and review of laboratory results Abnormal [facility] Performed by: [address] [address] CLIA ID: [id number] [facility] Interpretation and review of laboratory results Abnormal [facility] Performed by: [facility], [address] [place] [id number] CLIA ID: [id number] [facility] Interpretation and review of laboratory results Normal [facility] PHOSPHORUSon 08-28-2024 Phosphate [Mass/Vol] 2.7 mg/dL Normal 2.3-4.7 [facility] Comment on above: Performed By: #### L AB103, LAB17, [id number] ####Facilities Operator: RORO LUNDBERG ([phone])[address] Phosphate [Moles/Vol]on 07-31 Phosphate [Mass/Vol] 2.7 mg/dL 2.3 - 4 .7 mg/dL [facility] Progress Noteon 08-28-2024 Progress Note Attestation signed by Zoran Gould MD at 08/29/2024 8:48 AM ATTENDING ADDENDUM I independently saw the above patient and reviewed the recent events, imaging, labs, vital signs; I performed a physical exam and ROS on the same date of service as above. My findings agree with the above note except for any details corrected below. A complete review of systems was obtained and is negative except as stated in the resident note Assessment/Plan: Chief complaint -abdominal pain Patient seen on 08/28/2024 Diagnosis: Liver mass possible hemangioma Agree with above plan, will be happy to see patient as outpatient as well. Total Care Time throughout the day today was >= 40 minutes (including chart/data review/analysis (20), care coordination, and [id number] encounter), and was spent discussing/counselin g the patient/family regarding the diagnosis (20), care plan, and importance of compliance with the treatment plan for Farrah Gonzales. I examined the patient independently. I reviewed relevant data myself and may have also done so in the context of team rounds. A full chart review was performed.See above for more details Time was spent: -Reviewing the medical record, including recent tests and results -Ordering prescription medications/tests and procedures -Communicating results to the patient/family/careg iver -Counseling/educatin g the patient/family/careg iver -Documenting clinical information in the patient's electronic record -Co-ordination of care for the patient -Performing a medically appropriate exam and evaluation Zoran Gould MD, FACS Hepatobiliary Surgery (HPB) and Surgical Oncology Department of Surgery [facility] Department of General Surgery Daily Progress Note ADMIT DATE: 08/23/2024 TODAY'S DATE: 08/28/2024 SUBJECTIVE: No acute events overnight. Tolerating diet. No abdominal pain at this time. Tolerating diet. ROS: Noted above unless otherwise mentioned OBJECTIVE: VITALS: Temp: [36.2 ?C (97.1 ?F)-37 ?C (98.6 ?F)] 36.2 ?C (97.1 ?F) Heart Rate: [82-107] 98 Resp: [16-20] 16 BP: (125-172)/(72-98) 149/84 INTAKE/OUTPUT: Intake/Output Summary (Last 24 hours) at 08/28/2024 1015 Last data filed at 08/27/2024 1645 Gross per 24 hour Intake 300 ml Output -- Net 300 ml I/O last 3 completed shifts: In: 300 (3.3 mL/kg) [I.V.:300 (3.3 mL/kg)] Out: - (0 mL/kg) Weight: 89.7 kg No intake/output data recorded. PHYSICAL EXAM: Gen: NAD, A&Ox3, pain well controlled Heart: RRR, well perfused Lungs: symmetric chest rise, normal work of breathing, breath sounds b/l Abd: soft, non tender, non distended. Non rigid. Ext: no c/c/e no gross deformities Skin: warm, well perfused, no obvious rashes, cellulitis or gross discoloration LABS CBC: Auto WBC Date Value Ref Range Status 08/28/2024 6.4 3.6 - 10.7 10*3/uL Final 08/27/2024 6.3 3.6 - 10.7 10*3/uL Final 08/26/2024 4.2 3.6 - 10.7 10*3/uL Final Hemoglobin Date Value Ref Range Status 08/28/2024 9.3 (L) 13.0 - 18.0 g/dL Final 08/27/2024 10.5 (L) 13.0 - 18.0 g/dL Final 08/26/2024 9.5 (L) 13.0 - 18.0 g/dL Final Platelets Date Value Ref Range Status 08/28/2024 182 140 - 440 10*3/uL Final 08/27/2024 215 140 - 440 10*3/uL Final 08/26/2024 171 140 - 440 10*3/uL Final BMP: SODIUM Date Value Ref Range Status 08/28/2024 133 (L) 136 - 145 mmol/L Final 08/27/2024 134 (L) 136 - 145 mmol/L Final 08/26/2024 135 (L) 136 - 145 mmol/L Final POTASSIUM Date Value Ref Range Status 08/28/2024 4.3 3.5 - 5.1 mmol/L Final Comment: Plasma potassium values may be up to 0.5 mmol/L lower than serum values. 08/27/2024 4.0 3.5 - 5.1 mmol/L Final Comment: Plasma potassium values may be up to 0.5 mmol/L lower than serum values. 08/26/2024 4.4 3.5 - 5.1 mmol/L Final Comment: Plasma potassium values may be up to 0.5 mmol/L lower than serum values. CHLORIDE Date Value Ref Range Status 08/28/2024 102 98 - 107 mmol/L Final 08/27/2024 102 98 - 107 mmol/L Final 08/26/2024 102 98 - 107 mmol/L Final CARBON DIOXIDE Date Value Ref Range Status 08/28/2024 22 22 - 29 mmol/L Final 08/27/2024 24 22 - 29 mmol/L Final 08/26/2024 23 22 - 29 mmol/L Final UREA NITROGEN Date Value Ref Range Status 08/28/2024 31 (H) 8 - 21 mg/dL Final 08/27/2024 36 (H) 8 - 21 mg/dL Final 08/26/2024 30 (H) 8 - 21 mg/dL Final CREATININE Date Value Ref Range Status 08/28/2024 4.98 (H) 0.72 - 1.25 mg/dL Final 08/27/2024 6.32 (H) 0.72 - 1.25 mg/dL Final 08/26/2024 5.33 (H) 0.72 - 1.25 mg/dL Final Hepatic: AST (SGOT) Date Value Ref Range Status 08/28/2024 48 (H) <34 U/L Final 08/27/2024 64 (H) <34 U/L Final 08/26/2024 114 (H) <34 U/L Final 08/26/2024 114 (H) <34 U/L Final ALT Date Value Ref Range Status 08/28/2024 40 (H) <40 U/L Final 08/27 (more content not included)... Normal [facility] Progress Note Department of Internal Medicine Division of Endocrinology, Diabetes, & Metabolism Endocrinology Note Patient Name: Farrah Gonzales : 1980 AGE: 44 y.o. Room/Bed: [facility]/[address] Admission Date: 08/23/2024 Visit Date: 08/28/2024 Reason for Endocrine Consult: Type 1 diabetes mellitus on insulin pump. Provider/Team Requesting Consult: Brayan Barros PCP: Kristal Sullivan MD Outpt Track Announcer: Yes . Jace Ko MD at outside endocrinology practice. ASSESSMENT: #1. Type 1 diabetes mellitus on insulin pump. #2. End-stage renal disease on hemodialysis with a permacath access. #3. Admitted with sepsis > MSSA BACTEREMIA PLAN: #1 will do 1 to 15 carb ratio scale AND MDSS with meals and nightly #2 Cont lantus to 45 units nightly #3 monitor response and titrate as needed ICU goal <180 GMF goal <150 POCT BG ACHS Hypoglycemia management per protocol Carb controlled diet ANTICIPATED ENDOCRINE HOME GOING RECOMMENDATIONS: Optimized for Discharge from Endocrine standpoint: YES Home Going Endocrine Rx Recommendations-- On insulin pump. 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 SUBJECTIVE/HPI: CHIEF COMPLAINT: No chief complaint on file. Interval history 08/28 Doing well, no concerns overnight. Tolerating PO diet and insulin regiment without issues. 08/27 Doing well, no concerns overnight. Showering initially. Still tolerating PO diet and insulin regiment without issue 08/26 No acute events. Doing well. No concerns today. Walking curry without issue when seen. Tolerating PO diet and subcutaneous insulin without issue 08/25 Patient doing well when seen. No complaints. States he ended up keeping pump on overnight but it will around 1500 today. Tolerating PO intake. No issues with receiving subcutaneous insulin 08/24 - got HD yesterday, Nephrology following - when seen, resting in bed, alert and oriented but fatigued, no acute concerns, no additional insulin boluses programmed overnight, states he ran in 200s HPI Farrah is a 44-year-old white male who was admitted with sepsis, to determine etiology. He has a history of type 1 diabetes mellitus since age 18. He has been on an OmniPod for the last 3 years, with a [employer] G6 CGM. He uses auto mode on his pump. Insulin pump settings as follows: at home Basal rate 1.2 units/h Carb ratio 1 unit for every 50 g Insulin sensitivity factor I unit for every 50 above 110. Insulin active time 2.5 hours Insulin type NovoLog Total daily dose the last 3 days between 40 to 60 units. 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 He has been on hemodialysis since December 2023. Denies history of diabetic retinopathy or neuropathy. Denies history of thyroid disorder. Type of DM: 1 Onset of DM: Age 18 Home DM Medication Regimen: As above DM control (last A1c/glucose data): A1C 8.8 06/15/24 Glucose Date/Time Value Ref Range Status 08/28/2024 09:14 AM 229 (H) 70 - 100 mg/dL Final 08/27/2024 09:28 PM 345 (H) 70 - 100 mg/dL Final 08/27/2024 05:41 PM 209 (H) 70 - 100 mg/dL Final 08/27/2024 11:01 AM 260 (H) 70 - 100 mg/dL Final 08/27/2024 08:01 AM 79 70 - 100 mg/dL Final 08/26/2024 08:42 PM 212 (H) 70 - 100 mg/dL Final Review of Systems Constitutional: Positive for fatigue. Negative for chills and fever. Respiratory: Negative for cough and shortness of breath. Cardiovascular: Negative for chest pain and leg swelling. Gastrointestinal: Negative for abdominal distention, abdominal pain, diarrhea, nausea and vomiting. Genitourinary: Negative for difficulty urinating and dysuria. Psychiatric/Behavior al: Negative for confusion. ROS negative except for those mentioned in HPI. OBJECTIVE: Vitals: 08/27/24 1639 08/27/24 1645 08/27/24 1738 08/27/242015 BP: 156/90 152/86 (!) 172/89 149/84 BP Location: Right arm Patient Position: Lying Pulse: 91 90 98 86 Resp: 16 20 20 Temp: 37 ?C (98.6 ?F) 36.6 ?C (97.9 ?F) 36.3 ?C (97.3 ?F) TempSrc: Temporal Temporal SpO2: 95% 96% 96% Weight: Height: Physical Exam Constitutional: General: He is not in acute distress. Cardiovascular: Rate and Rhythm: Normal rate and regular rhythm. Pulses: Normal pulses. Heart sounds: No murmur heard. Pulmonary: Effort: Pulmonary effort is normal. No respiratory distress. Breath sounds: Normal breath sounds. No wheezing. Abdominal: General: Abdomen is flat. Bowel sounds are normal. There is no distension. Tenderness: There is no abdominal tenderness. Musculoskeletal: Right lower leg: No edema. Left lower leg: No edema. Skin: General: Skin is warm and dry. Neurological: Mental Status: He is alert. 24 hour intake/output: Intake/Output Summary (Last 24 hours) at 08/28/2024 0934 Last data filed at 08/27/2024 1645 Gross per 24 hour Intake 300 ml Output -- Net 300 ml Diet: Adult diet Regular Medications (as per EMR): HomeMeds: No current outpatient medications (more content not included)... Normal [facility] Progress Note Attestation with edits by Maria Luz Trujillo MD at 08/28/2024 10:38 AM Patient seen and examined personally during bedside teaching rounds (Date of Service: 08/28/24). I agree with the findings and plan of care as documented in the resident's note. I have edited the resident note below, and my thoughts are demarcated in Green. Doing well. Shares with our tea for the first time that he has had a floater present in his eye since prior to admission-this was unknown to us until today. Plan for optho referral on DC. Open to DC today if we can arrange transport. Await 08/25 Bcx NG x72h (1/2 sets already negative, awaiting second set), and possible DC later today. Has OP Ancef arranged with center EOT 09/22. 7AM-5PM: contact resident on [facility] Med D (find by hovering over attending's name on left side of patient's chart) 5PM-7AM: contact AI3 res Med Team Progress Note Farrah Gonzales : 1980(44 y.o.) Date: August 28, 2024 Med Team: Jamarcus Attending: Vadim Chief Complaint: fever Subjective: - No acute events overnight. - Currently, resting comfortably in bed. Having one soft BM daily. No n/v/d. Ordered breakfast and states he is tolerating full diet. Of note patient made a comment about his left eye developing a floater after he vomited prior to admission. This is the first time the primary team has been made aware of this symptom. He says that this floaters made worse by rapid eye movement. He says that it does not cause significant impairment in his visual solis but is noticeable. No pain with eye movement, and the eye is nonpainful. Review of Systems Constitutional: Negative for chills and fever. Cardiovascular: Negative for chest pain. Gastrointestinal: Negative for diarrhea, nausea and vomiting. Scheduled Meds:Scheduled Meds[1] Continuous Infusions:Continuous Meds[2] Objective: BP 149/84 Pulse 86 Temp 36.3 ?C (97.3 ?F) (Temporal) Resp 20 Ht 5' 11 (1.803 m) Wt 197 lb 12.8 oz (89.7 kg) SpO2 96% BMI 27.59 kg/m? Physical Exam Constitutional: General: He is not in acute distress. HENT: Mouth/Throat: Mouth: Mucous membranes are moist. Cardiovascular: Rate and Rhythm: Normal rate and regular rhythm. Pulses: Normal pulses. Heart sounds: No murmur heard. Pulmonary: Effort: Pulmonary effort is normal. No respiratory distress. Breath sounds: Normal breath sounds. No wheezing. Abdominal: General: There is no distension. Palpations: Abdomen is soft. Tenderness: There is no abdominal tenderness. Musculoskeletal: Right lower leg: No edema. Left lower leg: No edema. Skin: General: Skin is warm and dry. Neurological: Mental Status: He is alert. Select Recent Labs BMP: Recent Labs 08/26/24 0552 08/27/24 0216 08/28/24 0546 NA 135* 134* 133* K 4.4 4.0 4.3 CL 102 102 102 CO2 23 24 22 BUN 30* 36* 31* CREATININE 5.33* 6.32* 4.98* CALCIUM 9.0 9.5 9.0 MG 2.1 2.1 2.0 PHOS 2.9 2.9 2.7 LFTs: Recent Labs 08/26/24 0552 08/27/24 0216 08/28/24 0546 AST 114* 114* 64* 48* ALT 109* 109* 70* 40* PROT 6.3* 6.3* 7.0 6.3* ALBUMIN 2.7* 2.7* 3.2* 2.8* BILITOT 0.3 0.3 0.3 0.2 ALKPHOS 206* 206* 222* 176* Glucose: Recent Labs 08/26/24 0552 08/26/24 0730 08/26/24 1039 08/26/24 1702 08/26/24 2042 08/27/24 0216 08/27/24 0801 08/27/24 1101 08/27/24 1741 08/27/24 2128 08/28/24 0546 GLUCOSE 248* -- -- -- -- 168* -- -- -- -- 271* POCGLU -- 247* 359* 169* 212* -- 79 260* 209* 345* -- Procal: No results for input(s): PROCAL in the last 72 hours. CBC: Recent Labs 08/26/24 0552 08/27/24 0216 08/28/24 0546 WBC 4.2 6.3 6.4 HGB 9.5* 10.5* 9.3* HCT 28.4* 32.3* 27.9* PLT 171 215 182 MCV 90.7 92.0 90.6 RDW 12.8 12.8 12.6 ABGs: No results for input(s): PHART, TJR1RDK, PO2ART, BVL1OUD, SO2ART, X1MHBFBK in the last 72 hours. Lactic Acid: No results for input(s): LACTATE in the last 72 hours. INR: No results for input(s): INR in the last 72 hours. Cardiac Injury Profile: No results for input(s): CKTOTAL, CKMB, TROPONINI, TROPHSBASE, TROPHS2, BNP in the last 72 hours. Labs in Last 3 months: Lab Results Component Value Date TSH 2.48 08/23/2024 Assessment and Plan: MSSA Bacteremia from tunneled HD line Sepsis, Resolved Plan: - Continue Ancef - Follow-up blood cultures for 72 hours, this will be 08/28 in the afternoon currently no growth to date at 48 hours - ID will give Ancef 2g/2g/3g MWF post-HD for 4 weeks, EOT 09/22/24, dialysis center able to accommodate - CBC, CMP daily - Tylenol 1g TID for pain - encourage oral intake Chest Pain-resolved Hx of STEMI s/p PAXTON LAD (03/2024) Likely due to acid reflux from e (more content not included)... Normal [facility] 30on 08-27-2024 30 Problem: Knowledge Deficit Goal: Patient/family/careg iver demonstrates understanding of disease process, treatment plan, medications, and discharge instructions Outcome: Progressing Flowsheets (Taken 08/27/20242227) Patient/family/careg iver demonstrates understanding of disease process, treatment plan, medications, and discharge instructions: Complete learning assessment and assess knowledge base Provide teaching at level of understanding Provide teaching via preferred learning methods Problem: Potential for Compromised Skin Integrity Goal: Skin Integrity is Maintained or Improved Outcome: Progressing Flowsheets (Taken 08/27/20242227) Skin integrity is maintained or improved: Assess and monitor skin integrity Collaborate with interdisciplinary team and initiate plans and interventions as needed Relieve pressure to bony prominences Keep skin clean and dry Encourage use of lotion/moisturizer on skin Collaborate with wound, ostomy, and continence nurse Goal: Nutritional status is improving Outcome: Progressing Flowsheets (Taken 08/27/20242227) Nutritional status is improving: Monitor and assess patient for malnutrition (ex- brittle hair, bruises, dry skin, pale skin and conjunctiva, muscle wasting, smooth red tongue, and disorientation) Collaborate with interdisciplinary team and initiate plan and interventions as ordered Monitor patient's weight and dietary intake as ordered or per policy Utilize nutrition screening tool and intervene per policy Determine patient's food preferences and provide high-protein, high-caloric foods as appropriate Include patient/family/careg iver in decisions related to nutrition Collaborate with clinical chore worker Problem: Safety - Adult Goal: Free from fall injury Outcome: Progressing Flowsheets (Taken 08/27/20242227) Free from fall injury: Instruct family/caregiver on patient safety Based on caregiver fall risk screen, instruct family/caregiver to ask for assistance with transferring if caregiver noted to have fall risk factors Problem: Chronic Conditions and Co-morbidities Goal: Patient's chronic conditions and co-morbidity symptoms are monitored and maintained or improved Outcome: Progressing Flowsheets (Taken 08/27/20242227) Care Plan - Patient's Chronic Conditions and Co-Morbidity Symptoms are Monitored and Maintained or Improved: Monitor and assess patient's chronic conditions and comorbid symptoms for stability, deterioration, or improvement Collaborate with multidisciplinary team to address chronic and comorbid conditions and prevent exacerbation or deterioration Update acute care plan with appropriate goals if chronic or comorbid symptoms are exacerbated and prevent overall improvement and discharge Problem: Problem Interventions Goal: Assess Nutritional Intake Outcome: Progressing [facility] Problem: Knowledge Deficit Goal: Patient/family/careg iver demonstrates understanding of disease process, treatment plan, medications, and discharge instructions 08/27/20241753 by Mike Lopez RN Outcome: Progressing 08/27/2024 172 by Mike Lopez RN Outcome: Progressing Problem: Potential for Compromised Skin Integrity Goal: Skin Integrity is Maintained or Improved 08/27/20241753 by Mike Lopez RN Outcome: Progressing 08/27/2024 1722 by Mike Lopez RN Outcome: Progressing Goal: Nutritional status is improving 08/27/2024 1754 by Mike Lopez RN Outcome: Progressing 08/27/2024 1722 by Mike Lopez RN Outcome: Progressing Problem: Safety - Adult Goal: Free from fall injury 08/27/2024 1754 by Mike Lopez RN Outcome: Progressing 08/27/2024 1722 by Mike Lopez RN Outcome: Progressing Problem: Chronic Conditions and Co-morbidities Goal: Patient's chronic conditions and co-morbidity symptoms are monitored and maintained or improved 08/27/2024 1754 by Mike Lopez RN Outcome: Progressing 08/27/2024 1722 by Mike Lopez RN Outcome: Progressing Problem: Problem Interventions Goal: Assess Nutritional Intake 08/27/2024 1754 by Mike Lopez RN Outcome: Progressing 08/27/2024 1722 by Mike Lopez RN Outcome: Progressing Normal [facility] 30 Problem: Knowledge Deficit Goal: Patient/family/careg iver demonstrates understanding of disease process, treatment plan, medications, and discharge instructions Outcome: Progressing Problem: Potential for Compromised Skin Integrity Goal: Skin Integrity is Maintained or Improved Outcome: Progressing Goal: Nutritional status is improving Outcome: Progressing Problem: Safety - Adult Goal: Free from fall injury Outcome: Progressing Problem: Chronic Conditions and Co-morbidities Goal: Patient's chronic conditions and co-morbidity symptoms are monitored and maintained or improved Outcome: Progressing Normal [facility] 30 Problem: Knowledge Deficit Goal: Patient/family/careg iver demonstrates understanding of disease process, treatment plan, medications, and discharge instructions Outcome: Progressing Problem: Potential for Compromised Skin Integrity Goal: Skin Integrity is Maintained or Improved Outcome: Progressing Normal [facility] [id number] 08-27-2024 [id number] Spoke with [facility] Tammy and updated that plan was to discharge Friday with abx after dialysis. They are able to accept. OPAT faxed to facility. [facility] [phone] IV ancef continued. 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 ID following- waiting for culture results. OPAT to be written. Anticipate discharge home with no needs. Normal [facility] CBC W Auto Differential pane l (Bld)on 08-27-2024 Basophils (Bld) [#/Vol] 0 10*3/uL 0.0 - 0.2 10*3/uL [facility] Basophils/100 WBC (Bld) 0.6 % 0.0 - 2.0 % [facility] Eosinophils (Bld) [#/Vol] 0.2 10*3/uL 0. 0 - 0.5 10*3/uL [facility] Eosinophils/100 WBC (Bld) 3.4 % 0.0 - 6.0 % [facility] Erythrocyte distribution width (RBC) [Ratio] 12.8 % 11.5 - 15.0 % [facility] Hematocrit (Bld) [Volume fraction] 32.3 % Low 40.0 - 52.0 % [facility] Hemoglobin (Bld) [Mass/Vol] 10.5 g/dL Low 13.0 - 18.0 g/dL [facility] Immature granulocytes (Bld) [#/Vol] 0.1 10*3/uL High NINF - 0.1 10*3/uL [facility] Immature granulocytes/100 WBC (Bld) 2.2 % High 0.0 - 2.0 % [facility] Interpretation and review of laboratory results Abnormal [facility] Lymphocytes (Bld) [#/Vol] 1.3 10*3/uL 1. 0 - 4.3 10*3/uL [facility] Lymphocytes/100 WBC (Bld) 21.4 % 15 .0 - 45.0 % [facility] MCH (RBC) [Entitic mass] 29.9 pg 26. 0 - 34.0 pg [facility] MCHC (RBC) [Mass/Vol] 32.5 % 30.5 - 36.0 % [facility] MCV (RBC) [Entitic vol] 92 fL 77.0 - 99.0 fL [facility] Monocytes (Bld) [#/Vol] 0.7 10*3/uL 0.0 - 0.9 10*3/uL [facility] Monocytes/100 WBC (Bld) 11 % 5.0 - 13.0 % [facility] Neutrophils (Bld) [#/Vol] 3.8 10*3/uL 1. 8 - 7.5 10*3/uL [facility] Neutrophils/100 WBC (Bld) 61.4 % 38 .0 - 82.0 % [facility] Nucleated RBC/100 WBC (Bld) [Ratio] 0 % [facility] Platelet mean volume (Bld) [Entitic vol] 9.9 fL 9.0 - 12.7 fL [facility] Platelets (Bld) [#/Vol] 215 10*3/uL 140 - 440 10*3/uL [facility] RBC (Bld) [#/Vol] 3.51 10*6/uL Low 4.40 - 5.9 0 10*6/uL [facility] WBC (Bld) [#/Vol] 6.3 10*3/uL 3.6 - 10.7 10*3/uL [facility] CBC WITH AUTO DIFFERENTIALon 08-27-2024 Basophils (Bld) [#/Vol] 0.0 10*3/uL Normal 0.0-0.2 [facility] Comment on above: Performed By: #### L [id number] ####Facilities Operator: RORO LUNDBERG ([id number])[facility])[address] [place] [address] Basophils/100 WBC (Bld) 0.6 % Normal 0.0-2.0 [facility] Comment on above: Performed By: #### L [id number] ####Facilities Operator: RORO LUNDBERG ([id number])[facility] [place] [address] [place] Eosinophils (Bld) [#/Vol] 0.2 10*3/uL Normal 0.0-0.5 [facility] Comment on above: Performed By: #### L [id number] ####Facilities Operator: RORO LUNDBERG ([id number])[facility])[address] [place] [address] [place] Eosinophils/100 WBC (Bld) 3.4 % Normal 0.0-6.0 [facility] Comment on above: Performed By: #### L [id number] ####Facilities Operator: RORO LUNDBERG ([id number])[address] Erythrocyte distribution width (RBC) [Ratio] 12.8 % Normal 11.5-15.0 [facility] Comment on above: Performed By: #### L [id number] ####Facilities Operator: RORO LUNDBERG ([id number])[address] Hematocrit (Bld) [Volume fraction] 32.3 % Low 40.0-52.0 [facility] Comment on above: Performed By: #### L [id number] ####Facilities Operator: RORO LUNDBERG ([id number])[address] Hemoglobin (Bld) [Mass/Vol] 10.5 g/dL Low 13.0-18. 0 [facility] Comment on above: Performed By: #### L [id number] ####Facilities Operator: RORO LUNDBERG ([id number])[address] IMMATURE GRANS % 2.2 % High 0.0-2.0 [facility] Comment on above: Performed By: #### L [id number] ####Facilities Operator: RORO LUNDBERG ([id number])[address] IMMATURE GRANS ABSOLUTE 0.1 10*3/uL High <0.1 [facility] Comment on above: Performed By: #### L [id number] ####Facilities Operator: RORO LUNDBERG ([id number])[address] Lymphocytes (Bld) [#/Vol] 1.3 10*3/uL Normal 1.0-4.3 [facility] Comment on above: Performed By: #### L [id number] ####Facilities Operator: RORO LUNDBERG ([phone])[facility])[address] [place] [address] Lymphocytes/100 WBC (Bld) 21.4 % Normal 15.0-45.0 [facility] Comment on above: Performed By: #### L [id number] ####Facilities Operator: RORO LUNDBERG ([id number])[facility])[address] [place] [address] MCH (RBC) [Entitic mass] 29.9 pg Normal 26.0-34.0 [facility] Comment on above: Performed By: #### L [id number] ####Facilities Operator: RORO LUNDBERG ([id number])[facility])[address] [place] [address] MCHC 32.5 % Normal 30.5-36.0 [facility] Comment on above: Performed By: #### L [id number] ####Facilities Operator: RORO LUNDBERG ([id number])[facility])[address] [place] [address] MCV (RBC) [Entitic vol] 92.0 fL Normal 77.0-99.0 [facility] Comment on above: Performed By: #### L [id number] ####Facilities Operator: RORO LUNDBERG ([id number])[facility])[address] [place] [address] Monocytes (Bld) [#/Vol] 0.7 10*3/uL Normal 0.0-0.9 [facility] Comment on above: Performed By: #### L [id number] ####Facilities Operator: RORO LUNDBERG ([id number])[facility])[address] [place] [address] Monocytes/100 WBC (Bld) 11.0 % Normal 5.0-13.0 [facility] Comment on above: Performed By: #### L [id number] ####Facilities Operator: RORO LUNDBERG ([id number])[facility])[address] [place] [address] NEUTROPHILS ABSOLUTE 3.8 10*3/uL Normal 1.8-7.5 [facility] Comment on above: Performed By: #### L [id number] ####Facilities Operator: RORO LUNDBERG ([id number])[facility])[address] [place] [address] Neutrophils/100 WBC (Bld) 61.4 % Normal 38.0-82.0 [facility] Comment on above: Performed By: #### L [id number] ####Facilities Operator: RORO LUNDBERG ([id number])[facility])[address] [place] [address] NRBC 0.0 /100 WBCs Normal 0.0-2.0 [facility] Comment on above: Performed By: #### L [id number] ####Facilities Operator: RORO LUNDBERG ([id number])[facility])[address] [place] [address] Platelet mean volume (Bld) [Entitic vol] 9.9 fL Normal 9.0-12.7 [facility] Comment on above: Performed By: #### L [id number] ####Facilities Operator: RORO LUNDBERG ([id number])[facility])[address] [place] [address] Platelets (Bld) [#/Vol] 215 10*3/uL Normal 140-440 [facility] Comment on above: Performed By: #### L [id number] ####Facilities Operator: RORO LUNDBERG ([id number])[facility] [facility] [place] [address] [place] RBC (Bld) [#/Vol] 3.51 10*6/uL Low 4.40-5.90 [facility] Comment on above: Performed By: #### L [id number] ####Facilities Operator: RORO LUNDBERG ([phone])[facility])[address] [place] [address] [place] WBC (Bld) [#/Vol] 6.3 10*3/uL Normal 3.6-10.7 [facility] Comment on above: Performed By: #### L [id number] ####Facilities Operator: RORO LUNDBERG ([phone])[facility])[address] [place] [address] COMPREHENSIVE METABOLIC PANE Jose 08-27-2024 Albumin [Mass/Vol] 3.2 g/dL Low 3.5-5.0 [facility] Comment on above: Performed By: #### L AB17, [id number], [id number] ####Facilities Operator: RORO LUNDBERG ([phone])[facility])[address] [place] [address] ALP [Catalytic activity/Vol] 222 U/L High 40-150 [facility] Comment on above: Performed By: #### L AB17, [id number], [id number] ####Facilities Operator: RORO LUNDBERG ([phone])[facility])[address] [place] [address] ALT [Catalytic activity/Vol] 70 U/L High <40 [facility] Comment on above: Performed By: #### L AB17, [id number], [id number] ####Facilities Operator: RORO LUNDBERG ([phone])[facility])[address] [place] [address] Anion gap [Moles/Vol] 8 mmol/L Normal 3-13 [facility] Comment on above: Performed By: #### L AB17, [id number], [id number] ####Facilities Operator: RORO LUNDBERG ([phone])[facility])[address] [place] [address] AST [Catalytic activity/Vol] 64 U/L High <34 [facility] Comment on above: Performed By: #### L AB17, [id number], [id number] ####Facilities Operator: RORO LUNDBERG ([phone])[facility])[address] [place] [address] Bilirubin [Mass/Vol] 0.3 mg/dL Normal <1.2 [facility] Comment on above: Performed By: #### L AB17, [id number], [id number] ####Facilities Operator: RORO LUNDBERG ([phone])[facility] [place] [address] Calcium [Mass/Vol] 9.5 mg/dL Normal 8.4-10.2 [facility] Comment on above: Performed By: #### L AB17, [id number], [id number] ####Facilities Operator: RORO LUNDBERG ([phone])[facility] [place] [address] Chloride [Moles/Vol] 102 mmol/L Normal 98-107 [facility] Comment on above: Performed By: #### L AB17, [id number], [id number] ####Facilities Operator: RORO LUNDBERG ([phone])[facility] [place] [address] CO2 [Moles/Vol] 24 mmol/L Normal 22-29 [facility] Comment on above: Performed By: #### L AB17, [id number], [id number] ####Facilities Operator: RORO LUNDBERG ([phone])[facility])[address] [place] [address] Creatinine [Mass/Vol] 6.32 mg/dL High 0.72-1.25 [facility] Comment on above: Performed By: #### L AB17, [id number], [id number] ####Facilities Operator: RORO LUNDBERG ([phone])[facility])[address] [place] [address] [place] GLOMERULAR FILTRATION RATE ML/MIN/1.73 SQ M.PREDICTED 10.5 mL/min/1.73m*2 Low >60.0 S [facility] Comment on above: Result Comment: Calc ulation based on the Chronic Kidney Disease Epidemiology Collaboration (CKD-EPI) equation refit without adjustment for race Performed By: #### L AB17, [id number], [id number] ####Facilities Operator: RORO LUNDBERG ([phone])[facility] [place] [address] [place] Glucose [Mass/Vol] 168 mg/dL High 74-100 [facility] Comment on above: Performed By: #### L AB17, [id number], [id number] ####Facilities Operator: RORO LUNDBERG ([phone])[facility])[address] [place] [address] Potassium [Moles/Vol] 4.0 mmol/L Normal 3.5-5.1 [facility] Comment on above: Result Comment: [facility] potassium values may be up to 0.5 mmol/L lower than serum values. Performed By: #### L AB17, [id number], [id number] ####Facilities Operator: RORO LUNDBERG ([phone])[facility])[address] [place] [address] Protein [Mass/Vol] 7.0 g/dL Normal 6.4-8.3 [facility] Comment on above: Performed By: #### L AB17, [id number], [id number] ####Facilities Operator: RORO LUNDBERG ([phone])[facility] [place] [address] Sodium [Moles/Vol] 134 mmol/L Low 136-145 [facility] Comment on above: Performed By: #### L AB17, [id number], [id number] ####Facilities Operator: RORO LUNDBERG ([phone])[facility])[address] [place] [address] Urea nitrogen [Mass/Vol] 36 mg/dL High 8-21 [facility] Comment on above: Performed By: #### L AB17, [id number], [id number] ####Facilities Operator: RORO LUNDBERG ([phone])[facility])[address] [place] [address] Comprehensive metabolic 1998 panelon 08-27-2024 Albumin [Mass/Vol] 3.2 g/dL Low 3.5 - 5.0 g/dL [facility] ALP [Catalytic activity/Vol] 222 U/L High 40 - 150 U/L [facility] ALT [Catalytic activity/Vol] 70 U/L High NINF - 40 U/L [facility] Anion gap [Moles/Vol] 8 mmol/L 3 - 13 mmol/L [facility] AST [Catalytic activity/Vol] 64 U/L High NINF - 34 U/L [facility] Bilirubin [Mass/Vol] 0.3 mg/dL NINF - 1.2 mg/dL [facility] Calcium [Mass/Vol] 9.5 mg/dL 8.4 - 10. 2 mg/dL [facility] Chloride [Moles/Vol] 102 mmol/L 98 - 10 7 mmol/L [facility] CO2 [Moles/Vol] 24 mmol/L 22 - 29 mmol/L [facility] Creatinine [Mass/Vol] 6.32 mg/dL High 0.72 - 1.25 mg/dL [facility] GFR/1.73 sq M.predicted (S/P/Bld) [Vol rate/Area] 10.5 mL/min Low - PINF [facility] Comment on above: Calculation based on the Chronic Kidney Disease Epidemiology Collaboration (CKD-EPI) equation refit without adjustment for race Glucose [Mass/Vol] 168 mg/dL High 74 - 100 mg/dL [facility] Interpretation and review of laboratory results Abnormal [facility] Potassium [Moles/Vol] 4 mmol/L 3.5 - 5.1 mmol/L [facility] Comment on above: Plasma potassium willie ues may be up to 0.5 mmol/L lower than serum values. Protein [Mass/Vol] 7 g/dL 6.4 - 8.3 g/dL [facility] Sodium [Moles/Vol] 134 mmol/L Low 136 - 145 mmol/L [facility] Urea nitrogen [Mass/Vol] 36 mg/dL High 8 - 21 mg/d L [facility] Laboratory - Chemistry and C hemistry - challengeon 08-27-2024 Glucose [Mass/Vol] 345 mg/dL High 70 - 100 mg/dL [facility] Glucose [Mass/Vol] 209 mg/dL High 70 - 100 mg/dL [facility] Glucose [Mass/Vol] 260 mg/dL High 70 - 100 mg/dL [facility] Glucose [Mass/Vol] 79 mg/dL 70 - 100 mg/dL [facility] Magnesium [Mass/Vol] 2.1 mg/dL 1.6 - 2 .6 mg/dL [facility] MAGNESIUMon 08-27-2024 Magnesium [Mass/Vol] 2.1 mg/dL Normal 1.6-2.6 [facility] Comment on above: Result Comment: THEODORA R COMMENTS: Higher values can be expected in females during menses. Performed By: #### L AB17, [id number], [id number] ####Facilities Operator: RORO LUNDBERG ([phone])[facility] ([facility])[address] [place] [address] [place] Magnesium [Mass/Vol]on 08-27 Higher values can be expected in females during menses. [facility] No Panel Informationon 08-27 Interpretation and review of laboratory results Abnormal [facility] Performed by: [facility], [address] [place] [address] CLIA ID: [id number] [facility] Interpretation and review of laboratory results Abnormal [facility] Performed by: [facility], [address] [place] [address] CLIA ID: [id number] [facility] Interpretation and review of laboratory results Abnormal [facility] Performed by: [facility], [address] [place] [address] CLIA ID: [id number] [facility] Interpretation and review of laboratory results Normal [facility] Performed by: [facility], [address] [place] [address] CLIA ID: [id number] [facility] Interpretation and review of laboratory results Normal [facility] Nursing Noteon 08-27-2024 Nursing Note Patient Name: Farrah oGnzales Patient : 1980 Acct: [id number] Date of Admission: 08/23/2024 Room[facility]Bed: [facility] A Code Status: Full Code Allergies: Allergies[1] Diagnosis: Problem List[2] Treatment: Hemodilaysis 2:1 Priority: Routine Location: Acute Room Diabetic: Yes NPO: No Isolation Precautions: Dialysis Consent for Treatment Verified: Yes Blood Consent Verified: Not Applicable ICEBOAT: Identify, Consent, Equipment, HepB Status, Orders Complete, Access Verified, Timeliness (o2 and suction functional @ bedside) Second Clinician Verifying: Sasha Ashby RN Time out performed prior to access at 1334. Report Received from Primary RN at 0942. Primary RN (First Initial, Last Name, Title): Kathi Lopez RN Incapacitated Nurse Education Completed: ws HBsAg ONLY: Date Drawn: August 09, 2024 Results: Negative HBsAb: Date Drawn: August 09, 2024 Results: Immune >10 Order Dialyzer: Revaclear 300 Na+ Modeling: Not Applicable Dialysate Temperature (C): 36 Blood Flow Rate (BFR): 250 Dialysate Flow Rate (DFR): 500 Access to be Utilized Access: AVF Location: Upper Extremity Side: Left Needle gauge: 17 + Bruit/Thrill: Yes First Use X-ray Verified: Not Applicable OK to use line order: Not Applicable Site Assessment: Signs and Symptoms of Infection/Inflammati on: None If yes: Not Applicable Dressing: na Site Prep: Medical Aseptic Technique Dressing Changed this Treatment: na If yes, by whom: na Date of Last Dressing Change: na na20[address]?: na Red Alcohol Caps in place?: na Gauze Dressing?: na Non-Dialysis Use?: No Comment: Flows: Good If access problem, who was notified: Pre and Post-Assessment Patient Vitals for the past 8 hrs: Level of Consciousness Heart Rhythm O2 Device Bilateral Breath Sounds Skin Condition/Temp Abdomen Inspection Bowel Sounds (All Quadrants) 08/27/24 1330 Alert (0) Regular None (Room air) Clear Warm;Dry Soft Audible 08/27/24 1639 Alert (0) Regular -- -- -- -- -- Labs Lab Results Component Value Date/Time WBC 6.3 08/27/2024215 HGB 10.5 (L) 08/27/2024215 HCT 32.3 (L) 08/27/2024215 PLT 215 08/27/2024215 NA 134 (L) 08/27/2024215 K 4.0 08/27/2024215 CL 102 08/27/2024215 CO2 24 08/27/2024215 BUN 36 (H) 08/27/2024215 CREATININE 6.32 (H) 08/27/2024215 CALCIUM 9.5 08/27/2024215 PHOS 2.9 08/27/2024215 IV Drips and Rate/Dose Continuous Meds[3] Safety - Before each treatment: Dialysis Machine No.: [id number] RO Machine Number: [id number] Dialyzer Lot No.: [id number] Tubing Lot Number: [id number] [employer] Secure: Yes Venous Parameters Set: Yes Arterial Parameters Set: Yes NS Bag: Yes Saline Line Double Clamped: Yes Dialyzer: Revaclear 300 Prime Volume (mL): 200 mL RO Machine Number: [id number] RO Machine Log Sheet Completed: Yes Machine Alarm Self Test: Completed, Passed (08/27/24 1300) Air Foam Detector: Tested, Proper Function, pH Reading Extracorporeal Circuit Tested for Integrity: Yes Machine Conductivity: 13..8 Manual Conductivity: 13.8 Manual Ph: 7.14 Bleach Test (Neg): Yes Bath Temperature: 36 ?C (96.8 ?F) Conductivity Meter Serial #: [id number] Machine Functioning Alarm Free? Yes Dialysis Bath: K+ (Potassium): 3 Ca+ (Calcium): 2.5 Na+ (Sodium): 137 HCO3 (Bicarb): 32 Bicarbonate Concentrate Lot No.: [id number] Acid Concentrate Lot No.: [id number] Chlorine Testing - Before each treatment and every 4 hours: Time On: 1339 Time Off: 1639 Treatment Goal: 1L Weight Height: 180.3 cm (5' 11) (08/23/24 1031) Weight: 89.7 kg (197 lb 12.8 oz) (08/25/24 1100) BMI (Calculated): 27.6 (08/25/24 1100) 1st check: less than 0.1 ppm at: 1145 2nd check: less than 0.1 ppm at: 1445 3rd check: Not Applicable (if greater than 0.1 ppm, then check every 30 minutes from secondary) Access Flows and Pressures Patient Vitals for the past 8 hrs: Blood Flow Rate (mL/min) Ultrafiltration Rate (ml/hr) Arterial Pressure (mmHg) Venous Pressure (mmHg) TMP DFR Access Visible Intra-Hemodialysis Comments 08/27/24 1330 -- -- -- -- -- -- Yes pt aware of call light within reach and educated on use of call light 08/27/24 1339 200 mL/min 500 ml/hr -30 mmHg 100 mmHg 40 500 Yes tx iniated lines secured pt stable 08/27/24 1341 250 mL/min 500 ml/hr -100 mmHg 150 mmHg 70 500 Yes bfr increased 08/27/24 1345 250 mL/min 500 ml/hr -120 mmHg 170 mmHg 70 500 Yes Pt alert watching tv. Rmvd 61. Pt has the call light. 08/27/24 1400 250 mL/min 500 ml/hr -120 mmHg 160 mmHg 70 500 Yes Pt alert resting. Rmvd 181. Lines secure. 08/27/24 1415 250 mL/min 500 ml/hr -130 mmHg 150 mmHg 70 500 Yes Pt sleeping. Lines secure. Rmvd 325. 08/27/24 1431 250 mL/min 500 ml/hr -130 mmHg 160 mmHg 70 500 Yes Pt sleeping. Rmvd 426. Lines secure. Call light in reach. 08/27/24 1445 250 mL/min 500 ml/hr -130 mmHg 160 mmHg 70 500 Yes Pt sleeping. Stable. Rmvd 55 (more content not included)... Normal [facility] Nursing Note Ok per primary to take shower Normal [facility] PHOSPHORUSon 08-27-2024 Phosphate [Mass/Vol] 2.9 mg/dL Normal 2.3-4.7 [facility] Comment on above: Performed By: #### L AB17, [id number], [id number] ####Facilities Operator: RORO LUNDBERG ([phone])[address] Phosphate [Moles/Vol]on 07-31 Phosphate [Mass/Vol] 2.9 mg/dL 2.3 - 4 .7 mg/dL [facility] Progress Noteon 08-27-2024 Progress Note Attestation signed by Akbar Brown at 08/27/2024 1:42 PM Endocrinology Attending I performed a history and physical examination of the patient and discussed management with the resident. I reviewed the resident's note and agree with the documented findings and plan of care. I spent over 51% total time 35 minutes counseling and coordinating care. I have reviewed diagnostic workup and images. I have reviewed outpatient and inpatient notes. I have discussed the case with the primary team and the nurse taking care of the patient. Additional Notes: Insulin requirements decreasing. Change Lantus 45 units/d Do not hold meal time insulins. Will follow. Department of Internal Medicine Division of Endocrinology, Diabetes, & Metabolism Endocrinology Note Patient Name: Farrah Gonzales : 1980 AGE: 44 y.o. Room/Bed: [facility]/[address] Admission Date: 08/23/2024 Visit Date: 08/27/2024 Reason for Endocrine Consult: Type 1 diabetes mellitus on insulin pump. Provider/Team Requesting Consult: Brayan Barros PCP: Kristal Sullivan MD Outpt Track Announcer: Yes . Jace Ko MD at outside endocrinology practice. ASSESSMENT: #1. Type 1 diabetes mellitus on insulin pump. #2. End-stage renal disease on hemodialysis with a permacath access. #3. Admitted with sepsis > MSSA BACTEREMIA PLAN: #1. Transitioned to subcutaneous insulin for now #2 will do 1 to 20 carb ratio scale AND MDSS with meals and nightly - decrease lantus to 45 units nightly #3 monitor response and titrate as needed ICU goal <180 GMF goal <150 POCT BG ACHS Hypoglycemia management per protocol Carb controlled diet ANTICIPATED ENDOCRINE HOME GOING RECOMMENDATIONS: Optimized for Discharge from Endocrine standpoint: No Home Going Endocrine Rx Recommendations-- On insulin pump. 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 SUBJECTIVE/HPI: CHIEF COMPLAINT: No chief complaint on file. Interval history 08/27 Doing well, no concerns overnight. Showering initially. Still tolerating PO diet and insulin regiment without issue 08/26 No acute events. Doing well. No concerns today. Walking curry without issue when seen. Tolerating PO diet and subcutaneous insulin without issue 08/25 Patient doing well when seen. No complaints. States he ended up keeping pump on overnight but it will around 1500 today. Tolerating PO intake. No issues with receiving subcutaneous insulin 08/24 - got HD yesterday, Nephrology following - when seen, resting in bed, alert and oriented but fatigued, no acute concerns, no additional insulin boluses programmed overnight, states he ran in 200s HPI Farrah is a 44-year-old white male who was admitted with sepsis, to determine etiology. He has a history of type 1 diabetes mellitus since age 18. He has been on an OmniPod for the last 3 years, with a [employer] G6 CGM. He uses auto mode on his pump. Insulin pump settings as follows: at home Basal rate 1.2 units/h Carb ratio 1 unit for every 50 g Insulin sensitivity factor I unit for every 50 above 110. Insulin active time 2.5 hours Insulin type NovoLog Total daily dose the last 3 days between 40 to 60 units. 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 He has been on hemodialysis since December 2023. Denies history of diabetic retinopathy or neuropathy. Denies history of thyroid disorder. Type of DM: 1 Onset of DM: Age 18 Home DM Medication Regimen: As above DM control (last A1c/glucose data): A1C 8.8 06/15/24 Glucose Date/Time Value Ref Range Status 08/27/2024 08:01 AM 79 70 - 100 mg/dL Final 08/26/2024 08:42 PM 212 (H) 70 - 100 mg/dL Final 08/26/2024 05:02 PM 169 (H) 70 - 100 mg/dL Final 08/26/2024 10:39 AM 359 (H) 70 - 100 mg/dL Final 08/26/2024 07:30 AM 247 (H) 70 - 100 mg/dL Final 08/25/2024 10:57 PM 349 (H) 70 - 100 mg/dL Final Review of Systems Constitutional: Positive for fatigue. Negative for chills and fever. Respiratory: Negative for cough and shortness of breath. Cardiovascular: Negative for chest pain and leg swelling. Gastrointestinal: Negative for abdominal distention, abdominal pain, diarrhea, nausea and vomiting. Genitourinary: Negative for difficulty urinating and dysuria. Psychiatric/Behavior al: Negative for confusion. ROS negative except for those mentioned in HPI. OBJECTIVE: Vitals: 08/26/24 17008/26/24202608/26/243 08/27/24 0733 BP: (!) 162/88 157/94 (!) 163/81 (!) 185/99 BP Location: Right arm Right arm Right arm Patient Position: Sitting Lying Lying Pulse: 92 99 92 95 Resp: 20 18 16 Temp: 36.6 ?C (97.9 ?F) 36.4 ?C (97.5 ?F) 36.4 ?C (97.6 ?F) 36.4 ?C (97.5 ?F) TempSrc: Temporal Temporal Temporal Temporal SpO2: 96% 96% 97% 98% Weight: Height: Physical Exam (more content not included)... [facility] Progress Note Attestation with edits by Maria Luz Trujillo MD at 08/27/2024 11:11 AM Patient seen and examined personally (Date of Sevice: 08/27/24). I agree with the findings and plan of care as documented in the resident's note. I have edited the resident note below, and my thoughts are demarcated in Green. 7AM-5PM: contact resident on [facility] Med D (find by hovering over attending's name on left side of patient's chart) 5PM-7AM: contact 3 res Med Team Progress Note Farrah Gonzales : 1980(44 y.o.) Date: August 27, 2024 Med Team: Jamarcus Attending: Vadim Chief Complaint: fever Subjective: - No acute events overnight. - Currently, patient resting comfortably in bed. States he had 1 bowel movement yesterday that was soft. Overall, denies any fevers, chills, nausea, vomiting. States he feels well overall and has no new complaints. Review of Systems Constitutional: Negative for chills and fever. Cardiovascular: Negative for chest pain. Gastrointestinal: Negative for abdominal pain. Neurological: Negative for headaches. Scheduled Meds:Scheduled Meds[1] Continuous Infusions:Continuous Meds[2] Objective: BP (!) 185/99 Pulse 95 Temp 36.4 ?C (97.5 ?F) (Temporal) Resp 16 Ht 5' 11 (1.803 m) Wt 197 lb 12.8 oz (89.7 kg) SpO2 98% BMI 27.59 kg/m? Physical Exam Constitutional: General: He is not in acute distress. HENT: Mouth/Throat: Mouth: Mucous membranes are moist. Eyes: General: No scleral icterus. Cardiovascular: Rate and Rhythm: Regular rhythm. Tachycardia present. Pulses: Normal pulses. Heart sounds: No murmur heard. Pulmonary: Effort: Pulmonary effort is normal. No respiratory distress. Breath sounds: Normal breath sounds. No wheezing. Abdominal: General: Abdomen is flat. Tenderness: There is no abdominal tenderness. Musculoskeletal: Right lower leg: No edema. Left lower leg: No edema. Skin: General: Skin is warm and dry. Neurological: Mental Status: He is alert. Select Recent Labs BMP: Recent Labs 08/25/24 0508/26/24 0552 08/27/24215 NA 135* 135* 134* K 3.5 4.4 4.0 CL 98 102 102 CO2 24 23 24 BUN 43* 30* 36* CREATININE 7.05* 5.33* 6.32* CALCIUM 9.5 9.0 9.5 MG 2.1 2.1 2.1 PHOS 3.9 2.9 2.9 LFTs: Recent Labs 08/25/24 0508/26/24 0552 08/27/246 AST 110* 114* 114* 64* ALT 63* 109* 109* 70* PROT 6.7 6.3* 6.3* 7.0 ALBUMIN 3.1* 2.7* 2.7* 3.2* BILITOT 0.4 0.3 0.3 0.3 ALKPHOS 128 206* 206* 222* Glucose: Recent Labs 08/25/24 0519 08/25/24 0725 08/25/24 1101 08/25/24 1655 08/25/24 2058 08/25/24 2257 08/26/24 0552 08/26/24 0730 08/26/24 1039 08/26/24 1702 08/26/24 2042 08/27/24 0216 GLUCOSE 128* -- -- -- -- -- 248* -- -- -- -- 168* POCGLU -- < > 276* 292* 302* 349* -- 247* 359* 169* 212* -- < > = values in this interval not displayed. Procal: No results for input(s): PROCAL in the last 72 hours. CBC: Recent Labs 08/25/24 0519 08/26/24 0552 08/27/24 0216 WBC 6.8 4.2 6.3 HGB 9.6* 9.5* 10.5* HCT 28.2* 28.4* 32.3* PLT 171 171 215 MCV 89.8 90.7 92.0 RDW 13.0 12.8 12.8 ABGs: No results for input(s): PHART, UZY4DRW, PO2ART, CPO1HIN, SO2ART, X3LEUWVI in the last 72 hours. Lactic Acid: No results for input(s): LACTATE in the last 72 hours. INR: No results for input(s): INR in the last 72 hours. Cardiac Injury Profile: No results for input(s): CKTOTAL, CKMB, TROPONINI, TROPHSBASE, TROPHS2, BNP in the last 72 hours. Labs in Last 3 months: Lab Results Component Value Date TSH 2.48 08/23/2024 Assessment and Plan: MSSA Bacteremia from tunneled HD line Sepsis, Resolved Plan: - Continue Ancef - Follow-up blood cultures for 72 hours, this will be tomorrow 08/28 in the afternoon currently no growth to date at 48 hours - Dialysis MWF with AVF, no need for dialysis lines - ID planning for Ancef 2g/2g/3g MWF post-HD for 4 weeks EOT tentatively 09/22/24 after HD on DC, will ask CM to assist with coordination with OP HD center today in anticipation of weekend DC - CBC, CMP daily - Tylenol 1g TID for pain - encourage oral intake Chest Pain-resolved Hx of STEMI s/p PAXTON LAD (03/2024) Likely due to acid reflux from emesis given nature of pain -on tele, continue to monitor -currently on Plavix and ASA, Crestor 20 mg Right Lobe Liver Mass, suspected hemangioma Elevated liver enzymes - Per HPB, MRI from [place] shows liver hemangioma so no surgical intervention needed - Monitor and trend daily LFTs Resolved Problems: Diarrhea, resolved Intractable Nausea/Vomiting, resolved Unclear etiology. C. Diff by PCR negative. Likely due to abx use. - Imodium as needed - Compazine as need (more content not included)... Normal [facility] [id number] 08-26-2024 [id number] IV ancef continued. Repeat cultures pending. 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 Nephrology following. Anticipate discharge home with no needs. Normal [facility] Bacteria identified Cx Nom ( Bld)on 08-26-2024 Interpretation and review of laboratory results Abnormal [facility] Blood Collection Site: Left Forearm [facility] Bacteria identified Cx Nom ( Bld)Ordered By: Soraida Phelps on 08-26-2024 Interpretation and review of laboratory results Abnormal [facility] PBP2A Negative [facility] Blood Collection Site: Right Upper Arm [facility] CBC W Auto Differential pane l (Bld)on 08-26-2024 Basophils (Bld) [#/Vol] 0 10*3/uL 0.0 - 0.2 10*3/uL [facility] Basophils/100 WBC (Bld) 1 % 0.0 - 2.0 % [facility] Eosinophils (Bld) [#/Vol] 0.1 10*3/uL 0. 0 - 0.5 10*3/uL [facility] Eosinophils/100 WBC (Bld) 3.1 % 0.0 - 6.0 % [facility] Erythrocyte distribution width (RBC) [Ratio] 12.8 % 11.5 - 15.0 % [facility] Hematocrit (Bld) [Volume fraction] 28.4 % Low 40.0 - 52.0 % [facility] Hemoglobin (Bld) [Mass/Vol] 9.5 g/dL Low 13.0 - 18.0 g/dL [facility] [employer] Immature granulocytes (Bld) [#/Vol] 0.1 10*3/uL High NINF - 0.1 10*3/uL [facility] Immature granulocytes/100 WBC (Bld) 1.2 % 0.0 - 2.0 % [facility] Interpretation and review of laboratory results Abnormal [facility] Lymphocytes (Bld) [#/Vol] 1 10*3/uL 1. 0 - 4.3 10*3/uL [facility] Lymphocytes/100 WBC (Bld) 24.8 % 15 .0 - 45.0 % [facility] MCH (RBC) [Entitic mass] 30.4 pg 26. 0 - 34.0 pg [facility] MCHC (RBC) [Mass/Vol] 33.5 % 30.5 - 36.0 % [facility] MCV (RBC) [Entitic vol] 90.7 fL 77.0 - 99.0 fL [facility] Monocytes (Bld) [#/Vol] 0.6 10*3/uL 0.0 - 0.9 10*3/uL [facility] Monocytes/100 WBC (Bld) 15 % High 5.0 - 13.0 % [facility] Neutrophils (Bld) [#/Vol] 2.3 10*3/uL 1. 8 - 7.5 10*3/uL [facility] Neutrophils/100 WBC (Bld) 54.9 % 38 .0 - 82.0 % [facility] Nucleated RBC/100 WBC (Bld) [Ratio] 0 % [facility] Platelet mean volume (Bld) [Entitic vol] 9.6 fL 9.0 - 12.7 fL [facility] [employer] Platelets (Bld) [#/Vol] 171 10*3/uL 140 - 440 10*3/uL [facility] RBC (Bld) [#/Vol] 3.13 10*6/uL Low 4.40 - 5.9 0 10*6/uL [facility] WBC (Bld) [#/Vol] 4.2 10*3/uL 3.6 - 10.7 10*3/uL [facility] CBC WITH AUTO DIFFERENTIALon 05-29-2025 Basophils (Bld) [#/Vol] 0.0 10*3/uL Normal 0.0-0.2 [facility] Comment on above: Performed By: #### L [id number] ####Facilities Operator: RORO LUNDBERG ([phone])[facility])[address] [place] [address] Basophils/100 WBC (Bld) 1.0 % Normal 0.0-2.0 [facility] Comment on above: Performed By: #### L [id number] ####Facilities Operator: RORO LUNDBERG ([phone])[facility] ([facility])[address] [place] [address] Eosinophils (Bld) [#/Vol] 0.1 10*3/uL Normal 0.0-0.5 [facility] Comment on above: Performed By: #### L [id number] ####Facilities Operator: RORO LUNDBERG ([phone])[facility])[address] [place] [address] Eosinophils/100 WBC (Bld) 3.1 % Normal 0.0-6.0 [facility] Comment on above: Performed By: #### L [id number] ####Facilities Operator: RORO LUNDBERG ([phone])[facility])[address] [place] [address] Erythrocyte distribution width (RBC) [Ratio] 12.8 % Normal 11.5-15.0 [facility] Comment on above: Performed By: #### L [id number] ####Facilities Operator: RORO LUNDBERG ([phone])[facility])[address] [place] [address] Hematocrit (Bld) [Volume fraction] 28.4 % Low 40.0-52.0 [facility] Comment on above: Performed By: #### L [id number] ####Facilities Operator: RORO LUNDBERG ([phone])[facility])[address] [place] [address] Hemoglobin (Bld) [Mass/Vol] 9.5 g/dL Low 13.0-18. 0 [facility] Comment on above: Performed By: #### L [id number] ####Facilities Operator: RORO LUNDBERG ([phone])[facility])[address] [place] [address] IMMATURE GRANS % 1.2 % Normal 0.0-2.0 [facility] Comment on above: Performed By: #### L [id number] ####Facilities Operator: RORO LUNDBERG ([phone])[facility])[address] [place] [address] IMMATURE GRANS ABSOLUTE 0.1 10*3/uL High <0.1 [facility] Comment on above: Performed By: #### L [id number] ####Facilities Operator: RORO LUNDBERG ([phone])[address] Lymphocytes (Bld) [#/Vol] 1.0 10*3/uL Normal 1.0-4.3 [facility] Comment on above: Performed By: #### L [id number] ####Facilities Operator: RORO LUNDBERG ([id number])[address] Lymphocytes/100 WBC (Bld) 24.8 % Normal 15.0-45.0 [facility] Comment on above: Performed By: #### L [id number] ####Facilities Operator: RORO LUNDBERG ([id number])[address] MCH (RBC) [Entitic mass] 30.4 pg Normal 26.0-34.0 [facility] Comment on above: Performed By: #### L [id number] ####Facilities Operator: RORO LUNDBERG ([id number])[address] MCHC 33.5 % Normal 30.5-36.0 [facility] Comment on above: Performed By: #### L [id number] ####Facilities Operator: RORO LUNDBERG ([phone])[facility])[address] [place] [address] MCV (RBC) [Entitic vol] 90.7 fL Normal 77.0-99.0 [facility] Comment on above: Performed By: #### L [id number] ####Facilities Operator: RORO LUNDBERG ([id number])[facility])[address] [place] [address] Monocytes (Bld) [#/Vol] 0.6 10*3/uL Normal 0.0-0.9 [facility] Comment on above: Performed By: #### L [id number] ####Facilities Operator: RORO LUNDBERG ([id number])[facility])[address] [place] [address] Monocytes/100 WBC (Bld) 15.0 % High 5.0-13.0 [facility] Comment on above: Performed By: #### L [id number] ####Facilities Operator: RORO LUNDBERG ([id number])[facility])[address] [place] [address] NEUTROPHILS ABSOLUTE 2.3 10*3/uL Normal 1.8-7.5 [facility] Comment on above: Performed By: #### L [id number] ####Facilities Operator: RORO LUNDBERG ([phone])[facility])[address] [place] [address] Neutrophils/100 WBC (Bld) 54.9 % Normal 38.0-82.0 [facility] Comment on above: Performed By: #### L [id number] ####Facilities Operator: RORO LUNDBERG ([phone])[facility])[address] [place] [address] NRBC 0.0 /100 WBCs Normal 0.0-2.0 [facility] Comment on above: Performed By: #### L [id number] ####Facilities Operator: RORO LUNDBERG ([id number])[facility])[address] [place] [address] Platelet mean volume (Bld) [Entitic vol] 9.6 fL Normal 9.0-12.7 [facility] Comment on above: Performed By: #### L [id number] ####Facilities Operator: RORO LUNDBERG ([id number])[facility])[address] [place] [address] Platelets (Bld) [#/Vol] 171 10*3/uL Normal 140-440 [facility] Comment on above: Performed By: #### L [id number] ####Facilities Operator: RORO LUNDBERG ([id number])[facility])[address] [place] [address] RBC (Bld) [#/Vol] 3.13 10*6/uL Low 4.40-5.90 [facility] Comment on above: Performed By: #### L [id number] ####Facilities Operator: RORO LUNDBERG ([id number])[facility])[address] [place] [address] WBC (Bld) [#/Vol] 4.2 10*3/uL Normal 3.6-10.7 [facility] Comment on above: Performed By: #### L [id number] ####Facilities Operator: RORO LUNDBERG ([id number])[facility])[address] [place] [address] COMPREHENSIVE METABOLIC PANE Jose 08-26-2024 Albumin [Mass/Vol] 2.7 g/dL Low 3.5-5.0 [facility] Comment on above: Performed By: #### L [id number] #### Facilities Operator: RORO LUNDBERG ([id number]) [facility]) [address] [place] [address] ALP [Catalytic activity/Vol] 206 U/L High 40-150 [facility] Comment on above: Performed By: #### L [id number] #### Facilities Operator: RORO LUNDBERG ([id number]) [facility]) [address] [place] [address] [place] ALT [Catalytic activity/Vol] 109 U/L High <40 [facility] Comment on above: Performed By: #### L [id number] #### Facilities Operator: RORO LUNDBERG ([id number]) [facility] [address] [place] [address] Anion gap [Moles/Vol] 10 mmol/L Normal 3-13 [facility] Comment on above: Performed By: #### L [id number] #### Facilities Operator: RORO LUNDBERG ([id number]) [facility] [address] [place] [address] AST [Catalytic activity/Vol] 114 U/L High <34 [facility] Comment on above: Performed By: #### L [id number] #### Facilities Operator: RORO LUNDBERG ([id number]) [facility]) [address] [place] [address] Bilirubin [Mass/Vol] 0.3 mg/dL Normal <1.2 [facility] Comment on above: Performed By: #### L [id number] #### Facilities Operator: RORO LUNDBERG ([id number]) [facility] [address] [place] [address] [place] Calcium [Mass/Vol] 9.0 mg/dL Normal 8.4-10.2 [facility] Comment on above: Performed By: #### L [id number] #### Facilities Operator: RORO LUNDBERG ([id number]) [facility]) [address] [place] [address] [place] Chloride [Moles/Vol] 102 mmol/L Normal 98-107 [facility] Comment on above: Performed By: #### L [id number] #### Facilities Operator: RORO LUNDBERG ([id number]) [facility]) [address] [place] [address] [place] CO2 [Moles/Vol] 23 mmol/L Normal 22-29 [facility] Comment on above: Performed By: #### L [id number] #### Facilities Operator: RORO LUNDBERG ([id number]) [facility] ([facility]) [address] [place] [address] Creatinine [Mass/Vol] 5.33 mg/dL High 0.72-1.25 [facility] Comment on above: Performed By: #### L [id number] #### Facilities Operator: RORO LUNDBERG ([id number]) [facility] ([facility]) [address] [place] [address] [place] GLOMERULAR FILTRATION RATE ML/MIN/1.73 SQ M.PREDICTED 12.9 mL/min/1.73m*2 Low >60.0 S [facility] Comment on above: Result Comment: Calc ulation based on the Chronic Kidney Disease Epidemiology Collaboration (CKD-EPI) equation refit without adjustment for race Performed By: #### L [id number] #### Facilities Operator: RORO LUNDBERG ([id number]) [facility] [address] [place] [address] Glucose [Mass/Vol] 248 mg/dL High 74-100 [facility] Comment on above: Performed By: #### L [id number] #### Facilities Operator: RORO LUNDBERG ([id number]) [facility] [address] [place] [address] Potassium [Moles/Vol] 4.4 mmol/L Normal 3.5-5.1 [facility] Comment on above: Result Comment: [facility] potassium values may be up to 0.5 mmol/L lower than serum values. Performed By: #### L [id number] #### Facilities Operator: RORO LUNDBERG ([id number]) [facility] [address] [place] [address] Protein [Mass/Vol] 6.3 g/dL Low 6.4-8.3 [facility] Comment on above: Performed By: #### L [id number] #### Facilities Operator: RORO LUNDBERG ([id number]) [facility] [address] [place] [address] [place] Result Comment: Seru m protein values are higher than plasma values. Samples from recumbent persons are lower by up to 0.5 g/dL as compared to ambulatory persons. After 60 years values are lower by up to 0.2 g/dL. Sodium [Moles/Vol] 135 mmol/L Low 136-145 [facility] Comment on above: Performed By: #### L [id number] #### Facilities Operator: RORO LUNDBERG ([id number]) [facility] ([facility]) [address] [place] [address] Urea nitrogen [Mass/Vol] 30 mg/dL High 8-21 [facility] Comment on above: Performed By: #### L [id number] #### Facilities Operator: RORO LUNDBERG ([id number]) [facility] ([facility]) [address] [place] [address] Comprehensive metabolic 1998 panelon 08-26-2024 Albumin [Mass/Vol] 2.7 g/dL Low 3.5 - 5.0 g/dL [facility] ALP [Catalytic activity/Vol] 206 U/L High 40 - 150 U/L [facility] ALT [Catalytic activity/Vol] 109 U/L High NINF - 40 U/L [facility] Anion gap [Moles/Vol] 10 mmol/L 3 - 13 mmol/L [facility] AST [Catalytic activity/Vol] 114 U/L High NINF - 34 U/L [facility] Bilirubin [Mass/Vol] 0.3 mg/dL [facility] - 1.[facility] mg/dL [facility] Calcium [Mass/Vol] 9 mg/dL 8.4 - 10. 2 mg/dL [facility] Chloride [Moles/Vol] 102 mmol/L 98 - 10 7 mmol/L [facility] CO2 [Moles/Vol] 23 mmol/L 22 - 29 mmol/L [facility] Creatinine [Mass/Vol] 5.33 mg/dL High 0.72 - 1.25 mg/dL [facility] GFR/1.73 sq M.predicted (S/P/Bld) [Vol rate/Area] 12.9 mL/min Low - PINF [facility] Comment on above: Calculation based on the Chronic Kidney Disease Epidemiology Collaboration (CKD-EPI) equation refit without adjustment for race Glucose [Mass/Vol] 248 mg/dL High 74 - 100 mg/dL [facility] Interpretation and review of laboratory results Abnormal [facility] Potassium [Moles/Vol] 4.4 mmol/L 3.5 - 5.1 mmol/L [facility] Comment on above: Plasma potassium willie ues may be up to 0.5 mmol/L lower than serum values. Protein [Mass/Vol] 6.3 g/dL Low 6.4 - 8.3 g/dL [facility] Sodium [Moles/Vol] 135 mmol/L Low 136 - 145 mmol/L [facility] Urea nitrogen [Mass/Vol] 30 mg/dL High 8 - 21 mg/d L [facility] HEPATIC FUNCTION PANELon Bilirubin.indirect [Mass/Vol] 0.1 mg/dL Normal <0.5 [facility] Comment on above: Performed By: #### L [id number] #### Facilities Operator: RORO LUNDBERG ([phone]) [facility] ([facility]) [address] [place] [address] Hepatic function 2000 panelO rdered By: Carmelita Carolina on 08-26-2024 Albumin [Mass/Vol] 2.7 g/dL Low 3.5 - 5.0 g/dL [facility] ALP [Catalytic activity/Vol] 206 U/L High 40 - 150 U/L [facility] ALT [Catalytic activity/Vol] 109 U/L High NINF - 40 U/L [facility] AST [Catalytic activity/Vol] 114 U/L High [facility] - 34 U/L [facility] Bilirubin [Mass/Vol] 0.3 mg/dL [facility] - 1.2 mg/dL [facility] Bilirubin.conjugated [Mass/Vol] 0.1 mg/dL [facility] - 0.5 mg/dL [facility] Interpretation and review of laboratory results Abnormal [facility] Protein [Mass/Vol] 6.3 g/dL Low 6.4 - 8.3 g/dL [facility] Comment on above: Serum protein values are higher than plasma values. Samples from recumbent persons are lower by up to 0.5 g/dL as compared to ambulatory persons. After 60 years values are lower by up to 0.2 g/dL. [facility] Laboratory - Chemistry and C hemistry - challengeon 08-26-2024 Glucose [Mass/Vol] 212 mg/dL High 70 - 100 mg/dL [facility] Glucose [Mass/Vol] 169 mg/dL High 70 - 100 mg/dL [facility] Glucose [Mass/Vol] 359 mg/dL High 70 - 100 mg/dL [facility] Glucose [Mass/Vol] 247 mg/dL High 70 - 100 mg/dL [facility] Magnesium [Mass/Vol] 2.1 mg/dL 1.6 - 2 .6 mg/dL [facility] Laboratory - Microbiology an d Antimicrobial susceptibilityon 08-26-2024 Bacteria identified Cx Nom (Bld) Staphylococcus aureus Critically abnormal [facility] Comment on above: ID consult required per med staff policy dated 2021. This is an edited result. Previous organism was Gram-positive cocci on 08/24/2024 at 0543 EDT. Laboratory - Microbiology an d Antimicrobial susceptibilityOrdered By: Soraida Phelps on 08-26-2024 Bacteria identified Cx Nom (Bld) Staphylococcus aureus Critically abnormal [facility] Comment on above: ID consult required per med staff policy dated 2021. For identification and/or sensitivity, refer to culture collected on: 08/23/24 at 1303([address] [place] [address]) This is an edited result. Previous organism was Gram-positive cocci on 08/24/2024 at 0543 EDT. MAGNESIUMon 08-26-2024 Magnesium [Mass/Vol] 2.1 mg/dL Normal 1.6-2.6 [facility] Comment on above: Result Comment: THEODORA [place] COMMENTS: Higher values can be expected in females during menses. Performed By: #### L [id number] #### Facilities Operator: RORO LUNDBERG ([id number]) [facility] ([facility]) [address] [place] [address] Magnesium [Mass/Vol]on 08-26 Higher values can be expected in females during menses. [facility] No Panel Informationon 08-26 Interpretation and review of laboratory results Abnormal [facility] Performed by: [place] [address] CLIA ID: [id number] [facility] Interpretation and review of laboratory results Abnormal [facility] Performed by: [place] [address] CLIA ID: [id number] [facility] Interpretation and review of laboratory results Abnormal [facility] Performed by: [facility], [address] [place] [address] CLIA ID: [id number] [facility] Interpretation and review of laboratory results Abnormal [facility] Performed by: [facility], [address] [place] [address] CLIA ID: [id number] [facility] Interpretation and review of laboratory results Normal [facility] PHOSPHORUSon 08-26-2024 Phosphate [Mass/Vol] 2.9 mg/dL Normal 2.3-4.7 [facility] [employer] [facility] Comment on above: Performed By: #### L [id number] #### Facilities Operator: RORO LUNDBERG ([phone]) [facility] ([facility]) [address] [place], [place] [id number] [facility] Phosphate [Moles/Vol]on 07-30 Phosphate [Mass/Vol] 2.9 mg/dL 2.3 - 4 .7 mg/dL [facility] Progress Noteon 08-26-2024 Progress Note Attestation signed by Akbar Brown at 08/26/2024 1:27 PM Endocrinology Attending I performed a history and physical examination of the patient and discussed management with the resident. I reviewed the resident's note and agree with the documented findings and plan of care. I spent over 51% total time 35 minutes counseling and coordinating care. I have reviewed diagnostic workup and images. I have reviewed outpatient and inpatient notes. I have discussed the case with the primary team and the nurse taking care of the patient. Additional Notes: Still with hyperglycemia. Will adjust ICR and ISF. Will follow. Department of Internal Medicine Division of Endocrinology, Diabetes, & Metabolism Endocrinology Note Patient Name: Farrah Gonzales : 1980 AGE: 44 y.o. Room/Bed: [facility]/[address] Admission Date: 08/23/2024 Visit Date: 08/26/2024 Reason for Endocrine Consult: Type 1 diabetes mellitus on insulin pump. Provider/Team Requesting Consult: Brayan Barros PCP: Kristal Sullivan MD Outpt Track Announcer: Yes . Jace Ko MD at outside endocrinology practice. ASSESSMENT: #1. Type 1 diabetes mellitus on insulin pump. #2. End-stage renal disease on hemodialysis with a permacath access. #3. Admitted with sepsis > MSSA BACTEREMIA PLAN: #1. Transitioned to subcutaneous insulin for now #2 starting today > will do 1 to 20 carb ratio scale AND change to MDSS with meals and nightly - lantus 50 units nightly #3 monitor response and titrate as needed ICU goal <180 GMF goal <150 POCT BG ACHS Hypoglycemia management per protocol Carb controlled diet ANTICIPATED ENDOCRINE HOME GOING RECOMMENDATIONS: Optimized for Discharge from Endocrine standpoint: No Home Going Endocrine Rx Recommendations-- On insulin pump. 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 SUBJECTIVE/HPI: CHIEF COMPLAINT: No chief complaint on file. Interval history 08/26 No acute events. Doing well. No concerns today. Walking curry without issue when seen. Tolerating PO diet and subcutaneous insulin without issue 08/25 Patient doing well when seen. No complaints. States he ended up keeping pump on overnight but it will around 1500 today. Tolerating PO intake. No issues with receiving subcutaneous insulin 08/24 - got HD yesterday, Nephrology following - when seen, resting in bed, alert and oriented but fatigued, no acute concerns, no additional insulin boluses programmed overnight, states he ran in 200s HPI Farrah is a 44-year-old white male who was admitted with sepsis, to determine etiology. He has a history of type 1 diabetes mellitus since age 18. He has been on an OmniPod for the last 3 years, with a Dexcom G6 CGM. He uses auto mode on his pump. Insulin pump settings as follows: at home Basal rate 1.2 units/h Carb ratio 1 unit for every 50 g Insulin sensitivity factor I unit for every 50 above 110. Insulin active time 2.5 hours Insulin type NovoLog Total daily dose the last 3 days between 40 to 60 units. 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 He has been on hemodialysis since December 2023. Denies history of diabetic retinopathy or neuropathy. Denies history of thyroid disorder. Type of DM: 1 Onset of DM: Age 18 Home DM Medication Regimen: As above DM control (last A1c/glucose data): A1C 8.8 06/15/24 Glucose Date/Time Value Ref Range Status 08/26/2024 07:30 AM 247 (H) 70 - 100 mg/dL Final 08/25/2024 10:57 PM 349 (H) 70 - 100 mg/dL Final 08/25/2024 08:58 PM 302 (H) 70 - 100 mg/dL Final 08/25/2024 04:55 PM 292 (H) 70 - 100 mg/dL Final 08/25/2024 11:01 AM 276 (H) 70 - 100 mg/dL Final 08/25/2024 07:25 AM 225 (H) 70 - 100 mg/dL Final Review of Systems Constitutional: Positive for fatigue. Negative for chills and fever. Respiratory: Negative for cough and shortness of breath. Cardiovascular: Negative for chest pain and leg swelling. Gastrointestinal: Negative for abdominal distention, abdominal pain, diarrhea, nausea and vomiting. Genitourinary: Negative for difficulty urinating and dysuria. Psychiatric/Behavior al: Negative for confusion. ROS negative except for those mentioned in HPI. OBJECTIVE: Vitals: 08/25/24 2133 08/25/24 2144 08/25/24 2343 08/26/24 0341 BP: (!) 189/108 155/85 144/96 158/88 BP Location: Right arm Right arm Right arm Right arm Patient Position: Lying Lying Lying Pulse: 111 109 98 Resp: Temp: 36.1 ?C (96.9 ?F) 37.2 ?C (98.9 ?F) 36.8 ?C (98.3 ?F) TempSrc: Temporal Temporal Temporal SpO2: 97% 94% 96% Weight: Height: Physical Exam Constitutional: General: He is not in acute distress. Cardiovascular: Rate and Rhythm: Regular rhythm. Tachycardia present. Pulses: Normal pulses. Heart sounds: No mu (more content not included)... Normal [facility] Progress Note Attestation with edits by Maria Luz Trujillo MD at 08/26/2024 12:01 PM Patient seen and examined personally (Date of Sevice: 08/26/24). I agree with the findings and plan of care as documented in the resident's note. I have edited the resident note below, and my thoughts are demarcated in Green. High risk and complexity-bacteremi a requiring IV abx, HD dialysis catheter complication, awaiting blood culture finalization 7AM-5PM: contact resident on [facility] Med D (find by hovering over attending's name on left side of patient's chart) 5PM-7AM: contact AI3 res .imMed Team Progress Note Farrah Gonzales : 1980(44 y.o.) Date: August 25, 2024 Med Team: Jamarcus Attending: Vadim Chief Complaint: Fever/Body Aches Subjective: - No acute events overnight. - Currently, Patient seen sitting comfortably eating breakfast. He notes that he has been feeling better. He denies any CP, SOB, Nausea or vomiting. He only notes pain near his shoulder blade and upper back> he has tried lidocaine patches in the past and he notes that they don't feel helpful. He reports that he has had 2 bowel movements but they were more solid. PRN meds used in last 24hrs: tylenol 650 mg X1 Phenergen 6.25 mg X1 Review of Systems Scheduled Meds:[Scheduled Meds] [Scheduled Meds] acetaminophen, 1,000 mg, Oral, TID amLODIPine, 10 mg, Oral, Daily aspirin, 81 mg, Oral, Daily ceFAZolin, 1,000 mg, IntraVENous, q24h clopidogrel, 75 mg, Oral, Daily heparin, 5,000 Units, SubCUTAneous, 3 times per day insulin glargine, 40 Units, SubCUTAneous, Nightly insulin lispro, 0-5 Units, SubCUTAneous, TID WC insulin lispro, 0-6 Units, SubCUTAneous, TID WC And insulin lispro, 0-6 Units, SubCUTAneous, Nightly [Held by provider] metoprolol succinate XL, 25 mg, Oral, Daily pantoprazole, 40 mg, Oral, qAM AC rosuvastatin, 20 mg, Oral, Nightly Continuous Infusions:[Continuou s Meds] [Continuous Meds] Insulin Pump - (Patient Supplied), Objective: BP (!) 184/103 (BP Location: Right arm, Patient Position: Lying) Pulse 115 Temp 36.6 ?C (97.8 ?F) (Temporal) Resp 15 Ht 5' 11 (1.803 m) Wt 195 lb (88.5 kg) SpO2 96% BMI 27.20 kg/m? Physical Exam Constitutional: General: He is not in acute distress. Appearance: Normal appearance. He is normal weight. He is not ill-appearing or toxic-appearing. HENT: Head: Normocephalic and atraumatic. Eyes: Conjunctiva/sclera: Conjunctivae normal. Cardiovascular: Rate and Rhythm: Normal rate and regular rhythm. Pulses: Normal pulses. Heart sounds: Normal heart sounds. Pulmonary: Effort: Pulmonary effort is normal. Breath sounds: Normal breath sounds. Abdominal: General: There is no distension. Tenderness: There is no abdominal tenderness. There is no guarding. Musculoskeletal: General: No swelling or deformity. Skin: General: Skin is warm and dry. Comments: area near previous tunneled HD line shows much minimal erythema or tenderness; AVF with audible thrill Neurological: Mental Status: He is alert and oriented to person, place, and time. Psychiatric: Mood and Affect: Mood normal. Select Recent Labs BMP: Recent Labs 08/23/24 1300 08/24/24 04108/25/24 0519 NA 134* 135* 135* K 4.4 4.0 3.5 CL 99 101 98 CO2 20* 19* 24 BUN 59* 27* 43* CREATININE 9.57* 5.47* 7.05* CALCIUM 8.8 8.8 9.5 MG -- 1.9 2.1 PHOS -- 2.9 3.9 LFTs: Recent Labs 08/23/24 1300 08/24/24 0308 08/24/2441108/25/24 0519 AST 22 -- 81* 110* ALT 10 -- 37 63* PROT 6.4 -- 6.2* 6.7 ALBUMIN 3.3* -- 2.9* 3.1* BILITOT 0.5 -- 0.5 0.4 BILIRUBINU -- Negative -- -- ALKPHOS 85 -- 80 128 LIPASE -- -- 78* -- Glucose: Recent Labs 08/23/24 1300 08/24/2441108/24/24 1757 08/24/24205308/24/24 22008/25/24 0519 08/25/24 0725 GLUCOSE 224* 140* -- -- -- 128* -- POCGLU -- -- 355* 405* 350* -- 225* Procal: Recent Labs 08/23/24 1300 PROCAL 5.94* CBC: Recent Labs 08/23/24 1300 08/24/2441108/25/24 0519 WBC 20.3* 10.7 6.8 HGB 10.4* 9.6* 9.6* HCT 29.5* 28.3* 28.2* PLT 177 153 171 MCV 88.3 89.8 89.8 RDW 13.0 13.0 13.0 ABGs: No results for input(s): PHART, YFQ9RVY, PO2ART, JHL9SZI, SO2ART, C4JAQTCR in the last 72 hours. Lactic Acid: Recent Labs 08/23/24 1300 LACTATE 1.5 INR: No results for input(s): INR in the last 72 hours. Cardiac Injury Profile: Recent Labs 08/23/24 1300 08/23/24 1437 CKTOTAL 90 -- TROPHSBASE 59* -- TROPHS2 -- 57* BNP 15,061* -- Labs in Last 3 months: Lab Results Component Value Date TSH 2.48 08/23/2024 Assessment and Plan: MSSA Bacteremia from tunneled HD line Sepsis, Resolved Plan: -currently on Ancef -BC needs to be ne (more content not included)... [facility] [id number] 08-25-2024 [id number] Dialysis cath removed yesterday for line holiday. If HD needed a temp line can be placed per ID. Repeat culture ordered- 1 set pending. IV ancef continued- possible need for oysterman abx. GI s/o. Hepatobiliary surg consulted. Endo/ ID following. Anticipate discharge home with no needs. [facility] BLOOD CULTUREon 08-25-2024 Bacteria identified Cx Nom (Bld) BLOOD CULTURE Reference No growth at 5 days ORDER COMMENTS: Blood Collection Site: Left Antecubital [ S = SUSCEPTIBLE R = RESISTANT I = INTERMEDIATE S-DD = Susceptible-dose dependent NS = Non-susceptible NO = No Interpretation ] [facility] Comment on above: Performed By: #### L [id number] #### Facilities Operator: RORO LUNDBERG ([id number]) [address] Bacteria identified Cx Nom (Bld) BLOOD CULTURE Reference No growth at 5 days ORDER COMMENTS: Blood Collection Site: Left Arm [ S = SUSCEPTIBLE R = RESISTANT I = INTERMEDIATE S-DD = Susceptible-dose dependent NS = Non-susceptible NO = No Interpretation ] [facility] Comment on above: Performed By: #### L [id number] ####Facilities Operator: RORO LUNDBERG ([phone])[address] C. DIFFICILE BY PCR WITH REF CESAR TO EIAon 08-25-2024 C. DIFFICILE BY PCR WITH REFLEX TO EIA C. DIFFICILE TOXIN PCR Reference Not Detected Not Detected ORDER COMMENTS: C. difficile infection is unlikely to be present. Methodology: Real-time PCR [facility] Comment on above: Performed By: #### L [id number] ####Facilities Operator: RORO LUNDBERG ([phone])[facility] ([facility])[address] [place] [address] C. difficile toxin genes LAVERN +probe Ql (Stl)on 08-25-2024 C. difficile toxin B tcdB gene LAVERN+probe Ql (Stl) Not detected Not Detected [facility] Interpretation and review of laboratory results Normal [facility] C. difficile infection is unlikely to be present. Methodology: Real-time PCR [facility] CBC W Auto Differential pane l (Bld)on 08-25-2024 Basophils (Bld) [#/Vol] 0 10*3/uL 0.0 - 0.2 10*3/uL [facility] Basophils/100 WBC (Bld) 0.4 % 0.0 - 2.0 % [facility] Eosinophils (Bld) [#/Vol] 0.2 10*3/uL 0. 0 - 0.5 10*3/uL [facility] Eosinophils/100 WBC (Bld) 3.1 % 0.0 - 6.0 % [facility] Erythrocyte distribution width (RBC) [Ratio] 13 % 11.5 - 15.0 % [facility] Hematocrit (Bld) [Volume fraction] 28.2 % Low 40.0 - 52.0 % [facility] Hemoglobin (Bld) [Mass/Vol] 9.6 g/dL Low 13.0 - 18.0 g/dL [facility] Immature granulocytes (Bld) [#/Vol] 0 10*3/uL NINF - 0.1 10*3/uL [facility] Immature granulocytes/100 WBC (Bld) 0.6 % 0.0 - 2.0 % [facility] Interpretation and review of laboratory results Abnormal [facility] Lymphocytes (Bld) [#/Vol] 0.7 10*3/uL Low 1. 0 - 4.3 10*3/uL [facility] Lymphocytes/100 WBC (Bld) 10 % Low 15 .0 - 45.0 % [facility] MCH (RBC) [Entitic mass] 30.6 pg 26. 0 - 34.0 pg [facility] MCHC (RBC) [Mass/Vol] 34 % 30.5 - 36.0 % [facility] MCV (RBC) [Entitic vol] 89.8 fL 77.0 - 99.0 fL [facility] Monocytes (Bld) [#/Vol] 0.5 10*3/uL 0.0 - 0.9 10*3/uL [facility] Monocytes/100 WBC (Bld) 7.4 % 5.0 - 13.0 % [facility] Neutrophils (Bld) [#/Vol] 5.3 10*3/uL 1. 8 - 7.5 10*3/uL [facility] Neutrophils/100 WBC (Bld) 78.5 % 38 .0 - 82.0 % [facility] Nucleated RBC/100 WBC (Bld) [Ratio] 0 % [facility] Platelet mean volume (Bld) [Entitic vol] 10.1 fL 9.0 - 12.7 fL [facility] Platelets (Bld) [#/Vol] 171 10*3/uL 140 - 440 10*3/uL [facility] RBC (Bld) [#/Vol] 3.14 10*6/uL Low 4.40 - 5.9 0 10*6/uL [facility] WBC (Bld) [#/Vol] 6.8 10*3/uL 3.6 - 10.7 10*3/uL [facility] CBC WITH AUTO DIFFERENTIALon 08-25-2024 Basophils (Bld) [#/Vol] 0.0 10*3/uL Normal 0.0-0.2 [facility] Comment on above: Performed By: #### L [id number] #### Facilities Operator: RORO LUNDBERG ([id number]) [address] Basophils/100 WBC (Bld) 0.4 % Normal 0.0-2.0 [facility] Comment on above: Performed By: #### L [id number] #### Facilities Operator: RORO [id number]) [facility]) [address] [place] [address] Eosinophils (Bld) [#/Vol] 0.2 10*3/uL Normal 0.0-0.5 [facility] Comment on above: Performed By: #### L [id number] #### Facilities Operator: RORO [id number]) [facility]) [address] [place] [address] Eosinophils/100 WBC (Bld) 3.1 % Normal 0.0-6.0 [facility] Comment on above: Performed By: #### L [id number] #### Facilities Operator: RORO LUNDBERG ([phone]) [facility]) [address] [place] [address] Erythrocyte distribution width (RBC) [Ratio] 13.0 % Normal 11.5-15.0 [facility] Comment on above: Performed By: #### L [id number] #### Facilities Operator: RORO LUNDBERG ([id number]) [facility]) [address] [place] [address] Hematocrit (Bld) [Volume fraction] 28.2 % Low 40.0-52.0 [facility] Comment on above: Performed By: #### L [id number] #### Facilities Operator: RORO LUNDBERG ([id number]) [facility]) [address] [place] [address] Hemoglobin (Bld) [Mass/Vol] 9.6 g/dL Low 13.0-18. 0 [facility] Comment on above: Performed By: #### L [id number] #### Facilities Operator: RORO LUNDBERG ([id number]) [facility]) [address] [place] [address] IMMATURE GRANS % 0.6 % Normal 0.0-2.0 [facility] Comment on above: Performed By: #### L [id number] #### Facilities Operator: RORO LUNDBERG ([id number]) [facility]) [address] [place] [address] IMMATURE GRANS ABSOLUTE 0.0 10*3/uL Normal <0.1 [facility] Comment on above: Performed By: #### L [id number] #### Facilities Operator: RORO LUNDBERG ([id number]) [facility]) [address] [place] [address] [place] Lymphocytes (Bld) [#/Vol] 0.7 10*3/uL Low 1.0-4.3 [facility] Comment on above: Performed By: #### L [id number] #### Facilities Operator: RORO LUNDBERG ([id number]) [facility]) [address] [place] [address] Lymphocytes/100 WBC (Bld) 10.0 % Low 15.0-45.0 [facility] Comment on above: Performed By: #### L [id number] #### Facilities Operator: RORO LUNDBERG ([id number]) [facility]) [address] [place] [address] MCH (RBC) [Entitic mass] 30.6 pg Normal 26.0-34.0 [facility] Comment on above: Performed By: #### L [id number] #### Facilities Operator: RORO LUNDBERG ([id number]) [facility]) [address] [place] [address] MCHC 34.0 % Normal 30.5-36.0 [facility] Comment on above: Performed By: #### L [id number] #### Facilities Operator: RORO LUNDBERG ([id number]) [facility]) [address] [place] [address] MCV (RBC) [Entitic vol] 89.8 fL Normal 77.0-99.0 [facility] Comment on above: Performed By: #### L [id number] #### Facilities Operator: RORO LUNDBERG ([id number]) [facility]) [address] [place] [address] Monocytes (Bld) [#/Vol] 0.5 10*3/uL Normal 0.0-0.9 [facility] Comment on above: Performed By: #### L [id number] #### Facilities Operator: RORO LUNDBERG ([id number]) [facility]) [address] [place] [address] Monocytes/100 WBC (Bld) 7.4 % Normal 5.0-13.0 [facility] Comment on above: Performed By: #### L [id number] #### Facilities Operator: RORO LUNDBERG ([id number]) [facility]) [address] [place] [address] NEUTROPHILS ABSOLUTE 5.3 10*3/uL Normal 1.8-7.5 [facility] Comment on above: Performed By: #### L [id number] #### Facilities Operator: RORO LUNDBERG ([id number]) [facility]) [address] [place] [address] Neutrophils/100 WBC (Bld) 78.5 % Normal 38.0-82.0 [facility] Comment on above: Performed By: #### L [id number] #### Facilities Operator: RORO LUNDBERG ([id number]) [facility]) [address] [place] [address] NRBC 0.0 /100 WBCs Normal 0.0-2.0 [facility] Comment on above: Performed By: #### L [id number] #### Facilities Operator: RORO LUNDBERG ([id number]) [facility]) [address] [place] [address] Platelet mean volume (Bld) [Entitic vol] 10.1 fL Normal 9.0-12.7 [facility] Comment on above: Performed By: #### L [id number] #### Facilities Operator: RORO LUNDBERG ([phone]) [facility]) [address] [place] [address] [place] Platelets (Bld) [#/Vol] 171 10*3/uL Normal 140-440 [facility] Comment on above: Performed By: #### L [id number] #### Facilities Operator: RORO LUNDBERG ([id number]) [facility]) [address] [place] [address] RBC (Bld) [#/Vol] 3.14 10*6/uL Low 4.40-5.90 [facility] Comment on above: Performed By: #### L [id number] #### Facilities Operator: RORO LUNDBERG ([id number]) [facility]) [address] [place] [address] WBC (Bld) [#/Vol] 6.8 10*3/uL Normal 3.6-10.7 [facility] Comment on above: Performed By: #### L [id number] #### Facilities Operator: RORO LUNDBERG ([phone]) [facility]) [address] [place] [address] COMPREHENSIVE METABOLIC PANE Jose 08-25-2024 Albumin [Mass/Vol] 3.1 g/dL Low 3.5-5.0 [facility] Comment on above: Performed By: #### L [id number], [id number], [id number] ####Facilities Operator: RORO LUNDBERG ([id number])[facility])[address] [place] [address] ALP [Catalytic activity/Vol] 128 U/L Normal 40-150 [facility] Comment on above: Performed By: #### L [id number], [id number], [id number] ####Facilities Operator: RORO LUNDBERG ([id number])[facility])[address] [place] [address] ALT [Catalytic activity/Vol] 63 U/L High <40 [facility] Comment on above: Performed By: #### L [id number], [id number], [id number] ####Facilities Operator: RORO LUNDBERG ([phone])[facility])[address] [place] [address] Anion gap [Moles/Vol] 13 mmol/L Normal 3-13 [facility] Comment on above: Performed By: #### L [id number], [id number], [id number] ####Facilities Operator: RORO LUNDBERG ([id number])[facility])[address] [place] [address] AST [Catalytic activity/Vol] 110 U/L High <34 [facility] Comment on above: Performed By: #### L [id number], [id number], [id number] ####Facilities Operator: RORO LUNDBERG ([id number])[facility] [place] [address] Bilirubin [Mass/Vol] 0.4 mg/dL Normal <1.2 [facility] Comment on above: Performed By: #### L AB17, [id number], [id number] ####Facilities Operator: RORO LUNDBERG ([id number])[facility])[address] [place] [address] Calcium [Mass/Vol] 9.5 mg/dL Normal 8.4-10.2 [facility] Comment on above: Performed By: #### L AB17, [id number], [id number] ####Facilities Operator: RORO LUNDBERG ([id number])[facility])[address] [place] [address] Chloride [Moles/Vol] 98 mmol/L Normal 98-107 [facility] Comment on above: Performed By: #### L AB17, [id number], [id number] ####Facilities Operator: RORO LUNDBERG ([id number])[facility])[address] [place] [address] CO2 [Moles/Vol] 24 mmol/L Normal 22-29 [facility] Comment on above: Performed By: #### L AB17, [id number], [id number] ####Facilities Operator: RORO LUNDBERG ([phone])[facility])[address] [place] [address] Creatinine [Mass/Vol] 7.05 mg/dL High 0.72-1.25 [facility] Comment on above: Performed By: #### L AB17, [id number], [id number] ####Facilities Operator: RORO LUNDBERG ([phone])[facility])[address] [place] [address] [place] GLOMERULAR FILTRATION RATE ML/MIN/1.73 SQ M.PREDICTED 9.2 mL/min/1.73m*2 Low >60.0 [facility] Comment on above: Result Comment: Calc ulation based on the Chronic Kidney Disease Epidemiology Collaboration (CKD-EPI) equation refit without adjustment for race Performed By: #### L [id number], [id number], [id number] ####Facilities Operator: RORO LUNDBERG ([id number])[facility])[address] [place] [address] Glucose [Mass/Vol] 128 mg/dL High 74-100 [facility] Comment on above: Performed By: #### L AB17, [id number], [id number] ####Facilities Operator: RORO LUNDBERG ([id number])[facility])[address] [place] [address] Potassium [Moles/Vol] 3.5 mmol/L Normal 3.5-5.1 [facility] Comment on above: Result Comment: [facility] potassium values may be up to 0.5 mmol/L lower than serum values. Performed By: #### L AB17, [id number], [id number] ####Facilities Operator: RORO LUNDBERG ([id number])[facility])[address] [place] [address] Protein [Mass/Vol] 6.7 g/dL Normal 6.4-8.3 [facility] Comment on above: Performed By: #### L AB17, [id number], [id number] ####Facilities Operator: RORO LUNDBERG ([phone])[facility])[address] [place] [address] Sodium [Moles/Vol] 135 mmol/L Low 136-145 [facility] Comment on above: Performed By: #### L AB17, [id number], [id number] ####Facilities Operator: RORO LUNDBERG ([id number])[facility])[address] [place] [address] Urea nitrogen [Mass/Vol] 43 mg/dL High 8-21 [facility] Comment on above: Performed By: #### L AB17, [id number], [id number] ####Facilities Operator: RORO LUNDBERG ([id number])[facility])[address] [place] [address] Comprehensive metabolic 1998 panelon 08-25-2024 Albumin [Mass/Vol] 3.1 g/dL Low 3.5 - 5.0 g/dL [facility] ALP [Catalytic activity/Vol] 128 U/L 40 - 150 U/L [facility] ALT [Catalytic activity/Vol] 63 U/L High NINF - 40 U/L [facility] Anion gap [Moles/Vol] 13 mmol/L 3 - 13 mmol/L [facility] AST [Catalytic activity/Vol] 110 U/L High NINF - 34 U/L [facility] Bilirubin [Mass/Vol] 0.4 mg/dL NINF - 1.2 mg/dL [facility] Calcium [Mass/Vol] 9.5 mg/dL 8.4 - 10. 2 mg/dL [facility] Chloride [Moles/Vol] 98 mmol/L 98 - 10 7 mmol/L [facility] CO2 [Moles/Vol] 24 mmol/L 22 - 29 mmol/L [facility] Creatinine [Mass/Vol] 7.05 mg/dL High 0.72 - 1.25 mg/dL [facility] GFR/1.73 sq M.predicted (S/P/Bld) [Vol rate/Area] 9.2 mL/min Low - PINF [facility] Comment on above: Calculation based on the Chronic Kidney Disease Epidemiology Collaboration (CKD-EPI) equation refit without adjustment for race Glucose [Mass/Vol] 128 mg/dL High 74 - 100 mg/dL [facility] Interpretation and review of laboratory results Abnormal [facility] Potassium [Moles/Vol] 3.5 mmol/L 3.5 - 5.1 mmol/L [facility] Comment on above: Plasma potassium willie ues may be up to 0.5 mmol/L lower than serum values. Protein [Mass/Vol] 6.7 g/dL 6.4 - 8.3 g/dL [facility] Sodium [Moles/Vol] 135 mmol/L Low 136 - 145 mmol/L [facility] Urea nitrogen [Mass/Vol] 43 mg/dL High 8 - 21 mg/d L [facility] Consulton 08-25-2024 Consult Attestation signed by Lio Holloway MD at 08/26/2024 5:35 PM I saw and evaluated the patient. I agree with the findings and plan of care as documented in the resident's note. The patient was seen on 08/26/2024 Physical Exam: Vital Signs: BP (!) 162/88 (BP Location: Right arm, Patient Position: Sitting) Pulse 92 Temp 36.6 ?C (97.9 ?F) (Temporal) Resp 20 Ht 5' 11 (1.803 m) Wt 197 lb 12.8 oz (89.7 kg) SpO2 96% BMI 27.59 kg/m? Gen: alert, oriented, no acute distress Eyes: normal conjunctivae; no jaundice; PERRL ENMT: normal external ears and nose; grossly normal hearing Neck: supple; no tracheal deviation; no gross thyromegaly Resp: normal respiratory effort; no chest wall tenderness CV: regular rate/rhythm; no LE edema Abd: soft, non-tender, non-distended; no hernias MSI: no clubbing or cyanosis; extremity strength and ROM grossly normal Psych: A&Ox3; appropriate judgement Department of Surgery Surgical Service - 3 Resident Consult Note 08/24/2024 CHIEF COMPLAINT: No chief complaint on file. Reason for Consult: liver mass HISTORY OF PRESENT ILLNESS: Farrah Gonzales is a 44 y.o. male with a history of T1DM, ESRD on HD via TDC, HTN, [place] s/p stent March 2024 on ASA who presented 08/24/24 from [place] with concern for sepsis. Fevers, hypotension, tachycardia. MSSA bacteremia presumed due to TDC. He states that he had an MRI at [place] which showed a hemangioma. He denies abdominal pain. CT CAP to rule out other sources incidentally found 7.7 cm heterogenous right liver lesion. AF, HDS. Tachycardia improved. WBC 10, Hgb 9.6, platelets 153, Cr 5.47, bilirubin normal, ALT/AST 81/78 Medical History[1] Surgical History[2] Medications Prior to Admission: @MEDHMEDS@ Allergies: Patient has no known allergies. Social History[3] Family History[4] REVIEW OF SYSTEMS: Review of Systems Constitutional: Negative for chills and diaphoresis. HENT: Negative for ear discharge. Eyes: Negative for pain and redness. Respiratory: Negative for shortness of breath and stridor. Gastrointestinal: Negative for abdominal pain and constipation. Musculoskeletal: Negative for myalgias and neck pain. Neurological: Negative for syncope and speech difficulty. Psychiatric/Behavior al: Negative for agitation and behavioral problems. PHYSICAL EXAM: Vitals: 08/24/24 1435 BP: 144/91 Pulse: 99 Resp: 20 Temp: 36.2 ?C (97.1 ?F) SpO2: 99% I/O last 3 completed shifts: In: 2069.8 (23.4 mL/kg) [P.O.:620; I.V.:1449.8 (16.4 mL/kg)] Out: 2360 (26.7 mL/kg) [Urine:400 (0.1 mL/kg/hr); Emesis/NG output:460] Weight: 88.5 kg Physical Exam Constitutional: General: He is not in acute distress. Appearance: Normal appearance. HENT: Head: Normocephalic and atraumatic. Right Ear: External ear normal. Left Ear: External ear normal. Nose: Nose normal. No congestion. Mouth/Throat: Mouth: Mucous membranes are moist. Pharynx: Oropharynx is clear. Eyes: Extraocular Movements: Extraocular movements intact. Pupils: Pupils are equal, round, and reactive to light. Cardiovascular: Rate and Rhythm: Normal rate. Pulses: Normal pulses. Pulmonary: Effort: Pulmonary effort is normal. No respiratory distress. Abdominal: General: Abdomen is flat. There is no distension. Palpations: Abdomen is soft. Tenderness: There is no abdominal tenderness. Musculoskeletal: General: No deformity. Normal range of motion. Cervical back: Normal range of motion. No rigidity. Skin: General: Skin is warm. Coloration: Skin is not jaundiced. Neurological: General: No focal deficit present. Mental Status: He is alert. Cranial Nerves: No cranial nerve deficit. Psychiatric: Mood and Affect: Mood normal. Behavior: Behavior normal. DATA: CBC: Lab Results Component Value Date WBC 10.7 08/24/2024 RBC 3.15 (L) 08/24/2024 HGB 9.6 (L) 08/24/2024 HCT 28.3 (L) 08/24/2024 MCV 89.8 08/24/2024 MCH 30.5 08/24/2024 MCHC 33.9 08/24/2024 RDW 13.0 08/24/2024 PLT 153 08/24/2024 MPV 9.8 08/24/2024 BMP: Lab Results Component Value Date NA 135 (L) 08/24/2024 K 4.0 08/24/2024 CL 101 08/24/2024 CO2 19 (L) 08/24/2024 BUN 27 (H) 08/24/2024 CREATININE 5.47 (H) 08/24/2024 CALCIUM 8.8 08/24/2024 GLUCOSE 140 (H) 08/24/2024 Hepatic Function Panel: Lab Results Component Value Date ALKPHOS 80 08/24/2024 ALT 37 08/24/2024 AST 81 (H) 08/24/2024 PROT 6.2 (L) 08/24/2024 BILITOT 0.5 08/24/2024 PT/INR: No results found for: PROTIME, INR Troponin: No results found for: TROPONINI LIPASE: Lab Results Component Value Date LIPASE 78 (H) 08/24/2024 ASSESSMENT AND PLAN: This is a 44 y.o. male with 7.7 cm right liver mass - requested MRI from [place] which reportedly shows liver hemangioma. Asymptomatic. No s (more content not included)... Normal [facility] Culture, Blood (WB)on 2024 CUB Normal [facility] Comment on above: Performed By: #### M 100.636, L300.3900, L500.4050, L300.4310, L503.6005, L100.0100, M200.1000 ####[facility] [id number] [place], [place], [id number] Laboratory - Chemistry and C hemistry - challengeon 08-25-2024 Glucose [Mass/Vol] 349 mg/dL High 70 - 100 mg/dL [facility] Glucose [Mass/Vol] 302 mg/dL High 70 - 100 mg/dL [facility] Glucose [Mass/Vol] 292 mg/dL High 70 - 100 mg/dL [facility] Glucose [Mass/Vol] 276 mg/dL High 70 - 100 mg/dL [facility] Glucose [Mass/Vol] 225 mg/dL High 70 - 100 mg/dL [facility] Magnesium [Mass/Vol] 2.1 mg/dL 1.6 - 2 .6 mg/dL [facility] MAGNESIUMon 08-25-2024 Magnesium [Mass/Vol] 2.1 mg/dL Normal 1.6-2.6 [facility] Comment on above: Result Comment: THEODORA R COMMENTS: Higher values can be expected in females during menses. Performed By: #### L [id number], [id number], [id number] ####Facilities Operator: RORO LUNDBERG ([id number])[facility] ([facility])[address] [place] [address] Magnesium [Mass/Vol]on 08-25 Higher values can be expected in females during menses. [facility] No Panel Informationon 08-25 Interpretation and review of laboratory results Abnormal [facility] Performed by: [facility], [address] [place] [id number] CLIA ID: [id number] [facility] [employer] [facility] Interpretation and review of laboratory results Abnormal [facility] Performed by: [address] [address] CLIA ID: [id number] [facility] [employer] [facility] Interpretation and review of laboratory results Abnormal [facility] Performed by: [facility], [address] [place] [id number] CLIA ID: [id number] [facility] [employer] [facility] Interpretation and review of laboratory results Abnormal [facility] Performed by: [address] [address] CLIA ID: [id number] [facility] [employer] [facility] Interpretation and review of laboratory results Abnormal [facility] Performed by: [facility], [address] [place] [address] CLIA ID: [id number] [facility] [employer] [facility] Interpretation and review of laboratory results Normal [facility] Nursing Noteon 08-25-2024 Nursing Note Patient Name: Farrah Gonzales Patient : 1980 Acct: [id number] Date of Admission: 08/23/2024 Room[facility]Bed: [facility] A Code Status: Full Code Allergies: Allergies[1] Diagnosis: Problem List[2] Treatment: Hemodialysis 1:1 Priority: Routine Location: Bedside Diabetic: Yes NPO: No Isolation Precautions: Contact Consent for Treatment Verified: Yes Blood Consent Verified: Not Applicable ICEBOAT: Identify, Consent, Equipment, HepB Status, Orders Complete, Access Verified, Timeliness Second Clinician Verifying: Hayde Coe RN Time out performed prior to access at 1702. Report Received from Primary RN at 1600. Primary RN (First Initial, Last Name, Title): Hayde Coe RN Incapacitated Nurse Education Completed: Yes S.B. HBsAg ONLY: Date Drawn: August 10, 2024 Results: Negative HBsAb: Date Drawn: August 10, 2024 Results: Immune >10 Order Dialyzer: Nipro Na+ Modeling: Not Applicable Dialysate Temperature (C): 36 Blood Flow Rate (BFR): 200 Dialysate Flow Rate (DFR): 600 Access to be Utilized Access: AVF Location: Upper Extremity Side: Left Needle gauge: 17 + Bruit/Thrill: Yes First Use X-ray Verified: Not Applicable OK to use line order: Not Applicable Site Assessment: Signs and Symptoms of Infection/Inflammati on: None If yes: Not Applicable Dressing: NA Site Prep: Medical Aseptic Technique Dressing Changed this Treatment: NA Flows: Good If access problem, who was notified: Pre and Post-Assessment Patient Vitals for the past 8 hrs: Level of Consciousness Oriented X Heart Rhythm O2 Device Bilateral Breath Sounds Skin Color Skin Condition/Temp Abdomen Inspection Bowel Sounds (All Quadrants) RUE Edema LUE Edema RLE Edema LLE Edema 08/25/24 1400 -- -- -- -- Clear -- Warm;Dry Soft;Rounded Active -- -- -- -- 08/25/24 1656 Alert (0) 4 Other (Comment) None (Room air) Clear [place]ill Warm;Dry Soft;Flat Active None None None None Labs Lab Results Component Value Date/Time WBC 6.8 08/25/2024 0519 HGB 9.6 (L) 08/25/2024518 HCT 28.2 (L) 08/25/2024518 PLT 171 08/25/2024518 NA 135 (L) 08/25/2024518 K 3.5 08/25/2024518 CL 98 08/25/2024518 CO2 24 08/25/2024518 BUN 43 (H) 08/25/2024518 CREATININE 7.05 (H) 08/25/2024518 CALCIUM 9.5 08/25/2024518 PHOS 3.9 08/25/2024518 IV Drips and Rate/Dose Continuous Meds[3] Safety - Before each treatment: Dialysis Machine No.: [id number] RO Machine Number: [id number] Dialyzer Lot No.: [id number] Tubing Lot Number: [id number] [employer]ctions Secure: Yes Venous Parameters Set: Yes Arterial Parameters Set: Yes NS Bag: Yes Saline Line Double Clamped: Yes Dialyzer: Nipro Prime Volume (mL): 200 mL RO Machine Number: [id number] RO Machine Log Sheet Completed: Yes Machine Alarm Self Test: Completed, Passed (1655) (08/25/241655) Air Foam Detector: Tested, Proper Function, pH Reading Extracorporeal Circuit Tested for Integrity: Yes Machine Conductivity: 14.0 Manual Conductivity: 13.8 Manual Ph: 7.4 Bleach Test (Neg): Yes Bath Temperature: 36 ?C (96.8 ?F) Conductivity Meter Serial #: [id number] Machine Functioning Alarm Free? Yes Dialysis Bath: K+ (Potassium): 3 Ca+ (Calcium): 2.5 Na+ (Sodium): 137 HCO3 (Bicarb): 32 Bicarbonate Concentrate Lot No.: [id number] Acid Concentrate Lot No.: [id number] Chlorine Testing - Before each treatment and every 4 hours: Time On: 1707 Time Off: 2324 Treatment Goal: 2000 Weight Height: 180.3 cm (5' 11) (08/23/24 1031) Weight: 89.7 kg (197 lb 12.8 oz) (08/25/24 1100) BMI (Calculated): 27.6 (08/25/24 1100) 1st check: less than 0.1 ppm at: 1655 2nd check: less than 0.1 ppm at: 1900 3rd check: Not Applicable (if greater than 0.1 ppm, then check every 30 minutes from secondary) Access Flows and Pressures Patient Vitals for the past 8 hrs: Blood Flow Rate (mL/min) Ultrafiltration Rate (ml/hr) Arterial Pressure (mmHg) Venous Pressure (mmHg) TMP DFR Access Visible Intra-Hemodialysis Comments 08/25/24 1707 150 mL/min 500 ml/hr -10 mmHg 110 mmHg 70 600 Yes Tx started, Lines secured, Call light in reach. 08/25/24 1715 200 mL/min 500 ml/hr -40 mmHg 150 mmHg 70 600 Yes Pt tolerating tx, UF removed 126 08/25/24 1730 200 mL/min 500 ml/hr -50 mmHg 170 mmHg 70 600 Yes pt watching TV, UF removed 215 08/25/24 1745 200 mL/min 500 ml/hr -40 mmHg 150 mmHg 70 600 Yes pt alert, Pleasent to staff, UF removed 391 08/25/24 1800 200 mL/min 500 ml/hr -40 mmHg 150 mmHg 70 600 Yes Pt tolerating Tx well, UF removed 521 08/25/24 1815 200 mL/min 500 ml/hr -40 mmHg 150 mmHg 70 600 Yes UF removed 669 08/25/24 1830 200 mL/min 500 ml/hr -40 mmHg 180 mmHg 70 600 Yes pt alert, UF removed 755 08/25/24 1845 200 mL/min 500 ml/hr -50 mmHg 150 mmHg 80 600 Yes Pt tolerating tx, UF removed 882 08/25/24 1900 200 mL/min 500 ml/hr -50 mmHg 150 mmHg 80 600 Yes Pt family at bedside 989 08/25/24 1915 200 mL/min 500 ml/hr -50 mmHg 160 mmHg 80 6 (more content not included)... Normal [facility] Nursing Note Instructed patient to turn off insulin pump per endocrine order last pm. Patient confirmed insulin pump is off. Normal [facility] PHOSPHORUSon 08-25-2024 Phosphate [Mass/Vol] 3.9 mg/dL Normal 2.3-4.7 [facility] Comment on above: Performed By: #### L AB17, [id number], [id number] ####Facilities Operator: RORO LUNDBERG ([id number])[facility] ([address] Phosphate [Moles/Vol]on 07-30 Phosphate [Mass/Vol] 3.9 mg/dL 2.3 - 4 .7 mg/dL [facility] Progress Noteon 08-25-2024 Progress Note Attestation signed by Akbar Brown at 08/25/2024 4:31 PM Endocrinology Attending I performed a history and physical examination of the patient and discussed management with the resident. I reviewed the resident's note and agree with the documented findings and plan of care. I spent over 51% total time 35 minutes counseling and coordinating care. I have reviewed diagnostic workup and images. I have reviewed outpatient and inpatient notes. I have discussed the case with the primary team and the nurse taking care of the patient. Additional Notes: Still with significant hyperglycemia despite subcutaneous regimen + CSII. Increase insulin doses as below. Will follow. Department of Internal Medicine Division of Endocrinology, Diabetes, & Metabolism Endocrinology Note Patient Name: Farrah Gonzales : 1980 AGE: 44 y.o. Room[facility]Bed: [facility] A Admission Date: 08/23/2024 Visit Date: 08/25/2024 Reason for Endocrine Consult: Type 1 diabetes mellitus on insulin pump. Provider/Team Requesting Consult: Brayan Barros PCP: Kristal Sullivan MD Outpt Track Announcer: Yes . Jace Ko MD at outside endocrinology practice. ASSESSMENT: #1. Type 1 diabetes mellitus on insulin pump. #2. End-stage renal disease on hemodialysis with a permacath access. #3. Admitted with sepsis > MSSA BACTEREMIA PLAN: #1. Will transition to subcutaneous today with shutting off pump > discussed with patient and nursing > give lantus 50 units tonight #2 starting today > will do 1 to 30 carb ratio scale AND LDSS insulin #3 monitor response and titrate as needed ICU goal <180 GMF goal <150 POCT BG ACHS Hypoglycemia management per protocol Carb controlled diet ANTICIPATED ENDOCRINE HOME GOING RECOMMENDATIONS: Optimized for Discharge from Endocrine standpoint: No Home Going Endocrine Rx Recommendations-- On insulin pump. 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 SUBJECTIVE/HPI: CHIEF COMPLAINT: No chief complaint on file. Interval history 08/25 Patient doing well when seen. No complaints. States he ended up keeping pump on overnight but it will around 1500 today. Tolerating PO intake. No issues with receiving subcutaneous insulin 08/24 - got HD yesterday, Nephrology following - when seen, resting in bed, alert and oriented but fatigued, no acute concerns, no additional insulin boluses programmed overnight, states he ran in 200s HPI Farrah is a 44-year-old white male who was admitted with sepsis, to determine etiology. He has a history of type 1 diabetes mellitus since age 18. He has been on an OmniPod for the last 3 years, with a [employer] G6 CGM. He uses auto mode on his pump. Insulin pump settings as follows: at home Basal rate 1.2 units/h Carb ratio 1 unit for every 50 g Insulin sensitivity factor I unit for every 50 above 110. Insulin active time 2.5 hours Insulin type NovoLog Total daily dose the last 3 days between 40 to 60 units. 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 He has been on hemodialysis since December 2023. Denies history of diabetic retinopathy or neuropathy. Denies history of thyroid disorder. Type of DM: 1 Onset of DM: Age 18 Home DM Medication Regimen: As above DM control (last A1c/glucose data): A1C 8.8 06/15/24 Glucose Date/Time Value Ref Range Status 08/25/2024 11:01 AM 276 (H) 70 - 100 mg/dL Final 08/25/2024 07:25 AM 225 (H) 70 - 100 mg/dL Final 08/24/2024 10:08 PM 350 (H) 70 - 100 mg/dL Final 08/24/2024 08:54 PM 405 (H) 70 - 100 mg/dL Final 08/24/2024 05:57 PM 355 (H) 70 - 100 mg/dL Final Review of Systems Constitutional: Positive for fatigue. Negative for chills and fever. Respiratory: Negative for cough and shortness of breath. Cardiovascular: Negative for chest pain and leg swelling. Gastrointestinal: Negative for abdominal distention, abdominal pain, diarrhea, nausea and vomiting. Genitourinary: Negative for difficulty urinating and dysuria. Psychiatric/Behavior al: Negative for confusion. ROS negative except for those mentioned in HPI. OBJECTIVE: Vitals: 08/25/24 0620 08/25/24 0837 08/25/24 1100 08/25/24 1240 BP: (!) 184/103 145/85 BP Location: Right arm Right arm Patient Position: Lying Lying Pulse: 115 113 108 Resp: 15 20 Temp: 36.6 ?C (97.8 ?F) 36.9 ?C (98.5 ?F) (!) 35.8 ?C (96.5 ?F) TempSrc: Temporal Temporal Temporal SpO2: 96% 97% Weight: 197 lb 12.8 oz (89.7 kg) Height: Physical Exam Constitutional: General: He is not in acute distress. Cardiovascular: Rate and Rhythm: Regular rhythm. Tachycardia present. Pulses: Normal pulses. Heart sounds: No murmur heard. Pulmonary: Effort: Pulmonary effort is normal. No respiratory distress. Breath sounds: Normal breath sounds. No whee (more content not included)... Normal [facility] Progress Note Nutrition Assessment Type and Reason for Visit: Initial (Renal pt) Nutrition Recommendations/Plan : Pt ordered Regular diet; given pt's comorbidities dietary restrictions are appropriate such as 75 gm CHO Control, No Added Salt; pt declines having any diet/nutrition questions or concerns, aware of CHO amounts on menu, per diet office pt's breakfast contained ~64 gm CHO, this is including a regular Sprite; pt reports issue tolerating large portions of milk, was given lactose-free milk this morning, seems it pt just monitors how much he consumes or type of dairy, he can tolerate some amounts. Pt declines ONS when offered, RD encouraged protein intake at meals. RD to monitor weight, labs, fluid, nutritional status & follow up weekly. Malnutrition Assessment: Malnutrition Status: At risk for malnutrition (Comment) (pt with ^ needs, declines ONS) Context: Acute Illness Findings of the 6 clinical characteristics of malnutrition: Energy Intake: No significant decrease in energy intake (not reported by pt, he states his dietary habits did not change after initiation of HD) Weight Loss: No significant weight loss (not suspected acutely or chronically; chronically weight may be down slightly however not significantly; would obtain standing scale weights while admitted) Body Fat Loss: No significant body fat loss Muscle Mass Loss: No significant muscle mass loss Fluid Accumulation: No significant fluid accumulation (per chart) Suction Worker Strength: Not Performed Nutrition Assessment: Pt with PMH including T1DM (Omnipod pump and CGM), ESRD (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 In ED pt was found to be febrile (103), hypotensive (93/78) and tachycardic (135), labs significant for leukocytosis 26,000, hgb 11.9, lactic 1.5, creatinine 8.87 and potassium 3.6, urine clear and chest x-ray negative, CTAP was withotu infiltrates, masses, pleural effusions, showing R TDC in place and a large heterogenous 7.7cm R lobe liver mass; pt met criteria for sepsis and was subsequently treated with 1 L of fluids, Vanc and Zosyn and blood cultures were collected, med team consulted for further workup of sepsis; on bedside evaluation, pt's vitals noted to be: BP 156/82, R:20, P:108 satting 100 on RA; pt reported that his symptoms started 1.5 days ago in the evening after completing his dialysis session, he noted that took his temperature after he felt feverish which prompted them to go to the ED, c/o nausea, vomiting, body aches, and chest pain, characterizes his chest pain as soreness in the epigastric area radiating to his back/shoulder blades and towards his legs, also reporting slight redness and itching near his port site on his chest, denies any respiratory symptoms including SOB, cough or congestion but does note a runny nose for the last week, pt has only tried Phenergan for symptoms and has felt relief from nausea; 08/23 blood Cx collected / GPC (MSSA detected) resp PCR panel and Strep/Legionella Ag negative, source suspected to be skin given cellulitis surrounding tunneled line; several services consulted including Endo (following for insulin dosing with pump) and Nephrology (last HD 08/23), per Endo pt was diagnosed with T1DM when he was 18 YO, has been on Omnipod for 3 years with Dexcom G6 CGM; ID recommended TDC line holiday, repeating blood Cx and following for clearance, obtain TTE; GI consulted given finding of liver mass on CT scan (not seen on CT in 2023), pt had reported being told that he has a hemangioma but no recent report of this in chart, HPB Surgery consult recommended; Regular diet ordered. RD visited pt's room this morning, breakfast tray was present and 100% consumed (on tray was breakfast stack, regular Sprite and lactose-free milk, total of 64 gm CHO), pt confirmed having issue when drinking large quantities of milk but didn't report issue tolerating other dairy products in moderation; pt states his eating/diet did not really change once he started dialysis, states he was told his renal numbers were looking good (phos and sodium) and that he was encouraged to keep up his typical eating pattern; states at HD he does not receive protein supplement or bar, states 'they just give me D3', states he has tried ONS before and did not care for them; states he had diarrhea 3 times last night and that stool sample was supposed to be collected but hasn't been yet, states diarrhea is not common for him, he denies any other GI complaints; states last weight at HD was 85.5 kg, RD observed 197.8# bedscale weight w/ minimal items; when asked if he has nutrition/diet questions or concerns (pt aware of CHO amounts on menu) pt declined having any. Estimated Daily Nutrient Needs: Energy Requirements Based On: Kcal/kg Weight Used for Energy Requirements: [place] Weight for Energy Calculation (kg): 7 (more content not included)... [facility] Progress Note Attestation with edits by Maria Luz Trujillo MD at 08/25/2024 1:16 PM Patient seen and examined personally during bedside teaching rounds (Date of Service: 08/25/24). I agree with the findings and plan of care as documented in the resident's note. I have edited the resident note below, and my thoughts are demarcated in Green. 1. Complexity of problems addressed: Sepsis 3. Risk-ongoing bacteremia with need for IV abx and line holiday. Needs to be monitored IP for HD needs while on line holiday 7AM-5PM: contact resident on [facility] Med D (find by hovering over attending's name on left side of patient's chart) 5PM-7AM: contact AI3 res Med Team Progress Note Farrah Gonzales : 1980(44 y.o.) Date: August 25, 2024 Med Team: Jamarcus Attending: Vadim Chief Complaint: Fever/Body Aches Subjective: - No acute events overnight. - Currently, Patient reports that he is feeling okay. His nausea and vomiting has subsided since getting phenergan. He reports that he has had 3 episodes of diarrhea and that they were soft/watery. He denies any CP or SOB. He notes that line was removed yesterday but was wondering if AV fistula can be used as it was placed last year. Clinically looks much improved today PRN meds used in last 24hrs: tylenol 650 mg X1 Phenergen 6.25 mg X1 Review of Systems Scheduled Meds:Scheduled Meds[1] Continuous Infusions:Continuous Meds[2] Objective: BP (!) 184/103 (BP Location: Right arm, Patient Position: Lying) Pulse 115 Temp 36.6 ?C (97.8 ?F) (Temporal) Resp 15 Ht 5' 11 (1.803 m) Wt 195 lb (88.5 kg) SpO2 96% BMI 27.20 kg/m? Physical Exam Gen: NAD HEENT: MMM CV: rrr Resp: CTAB Skin: interval removal of tunneled HD line with improving erythema at chest wall site Abd: soft +Ve BS MSK: AVF with audible thrill Neuro: AOx4 Select Recent Labs BMP: Recent Labs 08/23/24 1300 08/24/24 04108/25/24 0519 NA 134* 135* 135* K 4.4 4.0 3.5 CL 99 101 98 CO2 20* 19* 24 BUN 59* 27* 43* CREATININE 9.57* 5.47* 7.05* CALCIUM 8.8 8.8 9.5 MG -- 1.9 2.1 PHOS -- 2.9 3.9 LFTs: Recent Labs 08/23/24 1300 08/24/24 0308 08/24/2441108/25/24 0519 AST 22 -- 81* 110* ALT 10 -- 37 63* PROT 6.4 -- 6.2* 6.7 ALBUMIN 3.3* -- 2.9* 3.1* BILITOT 0.5 -- 0.5 0.4 BILIRUBINU -- Negative -- -- ALKPHOS 85 -- 80 128 LIPASE -- -- 78* -- Glucose: Recent Labs 08/23/24 1300 08/24/24 0412 08/24/24 1757 08/24/24 2054 08/24/24 2208 08/25/24 0519 08/25/24 0725 GLUCOSE 224* 140* -- -- -- 128* -- POCGLU -- -- 355* 405* 350* -- 225* Procal: Recent Labs 08/23/24 1300 PROCAL 5.94* CBC: Recent Labs 08/23/24 1300 08/24/2441108/25/24 0519 WBC 20.3* 10.7 6.8 HGB 10.4* 9.6* 9.6* HCT 29.5* 28.3* 28.2* PLT 177 153 171 MCV 88.3 89.8 89.8 RDW 13.0 13.0 13.0 ABGs: No results for input(s): PHART, CTB2JXB, PO2ART, BGP5KYL, SO2ART, I7XAJYSL in the last 72 hours. Lactic Acid: Recent Labs 08/23/24 1300 LACTATE 1.5 INR: No results for input(s): INR in the last 72 hours. Cardiac Injury Profile: Recent Labs 08/23/24 1300 08/23/24 1437 CKTOTAL 90 -- TROPHSBASE 59* -- TROPHS2 -- 57* BNP 15,061* -- Labs in Last 3 months: Lab Results Component Value Date TSH 2.48 08/23/2024 Assessment and Plan: Fevers/Body Aches Sepsis, Resolved SIRS criteria, resolved MSSA Bacteremia from tunneled HD line P: 108, Leukocytosis 26,000. S/p Fluid bolus -Urine Antigen: Negative -MSSA in prelim BC -Resp culture: few gram neg bacilli, and gram pos bacilli, gram positive cocci in clusters -Drug Screen Neg -ESR, CRP, Pro-Digna elevated -UA showed protein and glucose in urine -Lactic Acid, CK, Resp path panel WNL Plan: -currently on Ancef -interval TDC 08/24 removal for source control, unfortunately not sent for culture -If needed, can place HD in interim -BC needs to be neg X72 hrs prior to replacing tunneled line -Awaiting second set of BC and TTE -CBC, CMP daily -Tylenol 1g TID for pain -encourage oral intake May be able to use AVF for HD. Per patient recently had a proximal vessel balloon procedure with ligation of feeder vessels. Unclear if AVF is ready for use. Will defer to nephrology. Right Lobe Liver Mass: GI signed off but recommended: -Lipase: 78 -CT chest, abdomen and pelvis: 7.7 cm mass right lobe liver, aortoiliac calcified plaquing with probable punctate areas of left renal artery calcification -HPB surgery consulted, appreciate recs. -Continue to trend LFTs daily. -GI to sign out Pt reports being told previously this lesion was a hemangioma Chest Pain-resolved Hx of STEMI s/p PAXTON LAD (03/2024) Likely due to acid r (more content not included)... Normal [facility] RF Guidance for removal of t unneled CV catheteron 08-25-2024 Removal of right-sided tunneled central venous catheter. ___ PROCEDURE SUMMARY: - Tunneled central venous catheter removal - Additional procedure(s): None PROCEDURE DETAILS: Pre-procedure Consent: Informed consent for the procedure including risks, benefits and alternatives was obtained and time-out was performed prior to the procedure. Preparation: The site was prepared and draped using maximal sterile barrier technique including cutaneous antisepsis. Anesthesia/sedation Level of anesthesia/sedation: No sedation Catheter removal The catheter was removed with a combination of traction and blunt dissection. Closure Hemostasis was achieved with manual compression. Sterile dressing(s) applied. Radiation Dose None Additional Details Additional description of procedure: None Equipment details: None Specimens removed: Tunneled central venous catheter. Estimated blood loss (mL): Less than 10 Report Dictated on Electronically Signed By: Keith Jones DR Electronically Signed Date/Time: 08/25/2024 10:14 AM EDT AMT Patient Name: FARRAH GONZALES : 1980 Exam Date/Time: 08/24/2024 17:05 Procedure: IR CVC TUNNELED CATHETER REMOVAL Ordering Provider: PHELAN CARL Reason For Exam: remove tunneled central line PROCEDURE: Tunneled central venous catheter removal Procedural Personnel Attending physician(s): Keith Jones DR Indication: Catheter no longer needed Additional clinical history: None Complications: No immediate complications. [facility] [employer] Keith Jones MD - 08/25/2024 Patient Name: FARRAH GONZALES : 1980 Exam Date/Time: 08/24/2024 17:05 Procedure: IR CVC TUNNELED CATHETER REMOVAL Ordering Provider: PHELAN CARL Reason For Exam: remove tunneled central line PROCEDURE: Tunneled central venous catheter removal Procedural Personnel Attending physician(s): Keith Jones DR Indication: Catheter no longer needed Additional clinical history: None Complications: No immediate complications. IMPRESSION: Removal of right-sided tunneled central venous catheter. ___ PROCEDURE SUMMARY: - Tunneled central venous catheter removal - Additional procedure(s): None PROCEDURE DETAILS: Pre-procedure Consent: Informed consent for the procedure including risks, benefits and alternatives was obtained and time-out was performed prior to the procedure. Preparation: The site was prepared and draped using maximal sterile barrier technique including cutaneous antisepsis. Anesthesia/sedation Level of anesthesia/sedation: No sedation Catheter removal The catheter was removed with a combination of traction and blunt dissection. Closure Hemostasis was achieved with manual compression. Sterile dressing(s) applied. Radiation Dose None Additional Details Additional description of procedure: None Equipment details: None Specimens removed: Tunneled central venous catheter. Estimated blood loss (mL): Less than 10 Report Dictated on Electronically Signed By: Keith Jones DR Electronically Signed Date/Time: 08/25/2024 10:14 AM EDT [employer] RF Guidance for removal of t unneled CV catheterOrdered By: Keith Jones on 08-25-2024 [employer] Phone: US Heart TransthoracicOrdere d By: Ludin Ramires on 08-25-2024 Ao Root Index 1.57 cm/m2 [facility] Phone: Aortic Arch 2.9 cm [employer] Phone: Aortic Root 3.3 cm [employer] Phone: Aortic valve Mean systole pressure gradient by US.doppler derived full Bernoulli 3 mmHg [facility] Phone: Aortic valve Orifice area by US 4.2 cm2 [employer] Phone: Aortic valve Peak systolic flow by US.doppler 0.9 m/s [facility] Phone: Ascending Aorta 3 cm [facility] [employer] Phone: Ascending Aorta Index 1.43 cm/m2 [facility] Work Phone: AV Area by Peak Velocity 3.6 cm2 [employer] Work Phone: [phone] AV Area by VTI 3.5 cm2 [employer] Work Phone: AV Peak Gradient 6 mmHg [facility] [employer] Work Phone: AV Peak Velocity 1.2 m/s [employer] Work Phone: AV Velocity Ratio 0.92 [facility] [employer] Work Phone: AV VTI 23.8 cm [employer] Work Phone: CARLOS/BSA Peak Velocity 1.7 cm2/m2 [facility] [employer] Work Phone: CARLOS/BSA VTI 1.7 cm2/m2 [facility] Phone: [phone] Fractional Shortening 2D 34 % 28 - 44 % [employer] Work Phone: [phone] Global Longitudinal Strain -10.8 % [facility] [employer] Work Phone: [phone] Interpretation and review of laboratory results Abnormal [facility] [employer] Work Phone: IVC Diameter 1.7 cm [employer] Work Phone: [phone] IVSd 1.1 cm Abnormal 0.6 - 1.0 cm [employer] Phone: [phone] LA Diameter 3.8 cm [employer] Phone: [phone] LA Size Index 1.81 cm/m2 [employer] Phone: [phone] LA Volume 2C 46 mL 18 - 58 mL [employer] Work Phone: [phone] LA Volume 4C 57 mL 18 - 58 mL [employer] Phone: [phone] LA Volume A/L 57 mL [employer] Work Phone: LA Volume BP 54 mL 18 - 58 mL [employer] Work Phone: [phone] LA Volume Index 2C 22 mL/m2 16 - 34 mL/m2 [employer] Work Phone: [phone] LA Volume Index 4C 27 mL/m2 16 - 34 mL/m2 [employer] Work Phone: [phone] LA Volume Index A/L 27 mL/m2 16 - 34 mL/m2 [facility] [employer] Work Phone: LA Volume Index BP 26 ml/m2 16 - 34 ml/m2 [facility] [employer] Work Phone: LA/AO Root Ratio 1.15 [facility] [employer] Work Phone: Left ventricular Ejection fraction by US.2D+Calculated by biplane method of disks 66 % 55 - 100 % [facility] [employer] Work Phone: LV E' Lateral Velocity 11 cm/s [facility] Work Phone: LV E' Septal Velocity 6 cm/s [facility] [employer] Work Phone: LV EDV A2C 71 mL [facility] [employer] Work Phone: LV EDV A4C 100 mL [facility] [employer] Work Phone: LV EDV BP 85 mL 67 - 155 mL [facility] [employer] Work Phone: LV EDV Index A2C 34 mL/m2 [facility] [employer] Work Phone: LV EDV Index A4C 48 mL/m2 [facility] [employer] Work Phone: LV EDV Index BP 40 mL/m2 [facility] [employer] Work Phone: LV Ejection Fraction A2C 63 % [facility] [employer] Work Phone: LV Ejection Fraction A4C 68 % [facility] [employer] Work Phone: LV ESV A2C 26 mL [facility] [employer] Work Phone: LV ESV A4C 32 mL [facility] [employer] Work Phone: LV ESV BP 29 mL 22 - 58 mL [facility] [employer] Work Phone: LV ESV Index A2C 12 mL/m2 [facility] [employer] Work Phone: LV ESV Index A4C 15 mL/m2 [facility] [employer] Work Phone: LV ESV Index BP 14 mL/m2 [facility] [employer] Work Phone: LV Mass 2D 153.2 g 88 - 224 g [facility] [employer] Work Phone: LV Mass 2D Index 73 g/m2 49 - 115 g/m2 [facility] [employer] Work Phone: LV RWT Ratio 0.68 [facility] Work Phone: LVIDd 3.8 cm Abnormal 4.2 - 5.9 cm [facility] [employer] Work Phone: LVIDd Index 1.81 cm/m2 [facility] [employer] Work Phone: LVIDs 2.5 cm [facility] Work Phone: LVIDs Index 1.19 cm/m2 [facility] [employer] Work Phone: LVOT Cardiac Output 19.2 liter/minute [facility] Work Phone: LVOT Diameter 2.3 cm [facility] [employer] Work Phone: LVOT Mean Gradient 3 mmHg [facility] [employer] Work Phone: LVOT Peak Gradient 5 mmHg [facility] [employer] Work Phone: LVOT Peak Velocity 1.1 m/s [facility] [employer] Work Phone: LVOT Stroke Volume Index 41.7 mL/m2 [facility] [employer] Work Phone: LVOT SV 87.6 ml [facility] [employer] Work Phone: LVOT VTI 21.1 cm [facility] [employer] Work Phone: LVOT:AV VTI Index 0.89 [facility] [employer] Work Phone: LVPWd 1.3 cm Abnormal 0.6 - 1.0 cm [facility] [employer] Work Phone: Pulmonary Artery EDP 11 mmHg [facility] [employer] Work Phone: PV Max Velocity 0.9 m/s [facility] [employer] Work Phone: PV Mean Gradient 2 mmHg [facility] [employer] Work Phone: PV Mean Velocity 0.6 m/s [facility] [employer] Work Phone: PV Peak Gradient 3 mmHg [facility] [employer] Work Phone: RA Area 4C 34.3 mL [facility] [employer] Work Phone: RA Area 4C 32.6 mL [facility] [employer] Work Phone: RV Basal Dimension 2.9 cm [facility] [employer] Phone: [phone] RV Free Wall Peak S' 14 cm/s [facility] [employer] Work Phone: RV Longitudinal Dimension 7.4 cm [facility] [employer] Phone: [phone] RV Mid Dimension 2.4 cm [facility] [employer] Phone: RVOT Mean Gradient 1 mmHg [facility] [employer] Phone: RVOT Peak Gradient 2 mmHg [facility] [employer] Phone: RVOT Peak Velocity 0.8 m/s [facility] [employer] Phone: RVOT VTI 14.9 cm [facility] [employer] Phone: Sinotubular Junction 2.3 cm [facility] [employer] Phone: TAPSE 2.4 cm 1.7 cm [facility] [employer] Phone: [phone] [facility] [employer] Phone: Heart Transthoracicon Left Ventricle: Left ventricle size is normal. Mildly increased wall thickness. Normal left ventricular systolic function. EF by 2D Simpsons Biplane is 66%. Global longitudinal strain is -10.8%. Normal wall motion. Right Ventricle: Right ventricle size is normal. Normal systolic function. No significant valvular abnormalities. Left Ventricle Left ventricle size is normal. Mildly increased wall thickness. Normal left ventricular systolic function. EF by 2D Simpsons Biplane is 66%. Global longitudinal strain is -10.8%. Normal wall motion. Indeterminate diastolic function due to E-A fusion. Right Ventricle Right ventricle size is normal. Normal systolic function. Left Atrium Left atrium size is normal. Right Atrium Right atrium size is normal. IVC/SVC IVC diameter is normal and decreases greater than 50% during inspiration; therefore the estimated right atrial pressure is normal (~3 mmHg). Mitral Valve Valve structure is normal. Trace regurgitation. No stenosis noted. Tricuspid Valve Valve structure is normal. Trace regurgitation. Normal hepatic vein systolic flow. Unable to assess RVSP due to insignificant tricuspid regurgitation. Aortic Valve Trileaflet. No cusp thickening. No cusp calcification. No regurgitation. No stenosis. Pulmonic Valve Valve structure is normal. Trace regurgitation. Ascending Aorta Normal sized sinuses of Valsalva and ascending aorta. Pericardium No pericardial effusion. Septum No interatrial shunt visualized on color Doppler. Study Details Image quality: adequate. Additional technique includes myocardial strain. Heart rate: 108 bpm. Blood pressure: 145/85 mmHg. The underlying ECG rhythm was sinus tachycardia. Cardiac history: prior PCI. No contrast was given. Echo Additional Conclusions No significant valvular abnormalities. Wall Scoring Baseline Score Index: 1.00 The left ventricular wall motion is normal. CV CPACS Urine Cultureon 08-25-2024 U[facility] Mixed Gram Positive Organisms [place] Count 25,000-50,000 MIXC Mixed contaminants. Submit a new specimen if indicated. Normal [facility] Comment on above: Performed By: #### M 100.678, L400.0001, M100.2200 ####[facility] [id number] [place], [address] [id number] 08-24-2024 [id number] Pt adm for tx/ eval of sepsis- transfer from [place] ER. HD- MWF. IV zosyn/ vanc continued. Respiratory culture positive. BC positive. XR chest/ CT abd pelvis completed. Echo pending. Per nursing pt is vomiting today. GI/ID consulted. Anticipate discharge home. Possible oysterman abx. Normal [facility] [employer] [facility] Bacteria identified Aer cx N om (Lower resp)on 08-24-2024 Gram Stain Result Many Epithelial cells per low power field Abnormal [employer] Gram Stain Result Few Polymorphonuclear leukocytes per low power field Abnormal [employer] Gram Stain Result Positive Abnormal [employer] Gram Stain Result Negative Abnormal [employer] Gram Stain Result Smear contains >= 15 squamous cells per low power field, suggestive of poor quality. Culture not performed. Please re-collect if clinically indicated. Abnormal [employer] Interpretation and review of laboratory results Abnormal [employer] CBC W Auto Differential pane l (Bld)Ordered By: Venkata Lopes on 08-24-2024 Basophils (Bld) [#/Vol] 0 10*3/uL 0.0 - 0.2 10*3/uL [facility] Basophils/100 WBC (Bld) 0.4 % 0.0 - 2.0 % [facility] Eosinophils (Bld) [#/Vol] 0 10*3/uL 0. 0 - 0.5 10*3/uL [facility] Eosinophils/100 WBC (Bld) 0.1 % 0.0 - 6.0 % [facility] Erythrocyte distribution width (RBC) [Ratio] 13 % 11.5 - 15.0 % [facility] Hematocrit (Bld) [Volume fraction] 28.3 % Low 40.0 - 52.0 % [facility] Hemoglobin (Bld) [Mass/Vol] 9.6 g/dL Low 13.0 - 18.0 g/dL [facility] Immature granulocytes (Bld) [#/Vol] 0.1 10*3/uL High NINF - 0.1 10*3/uL [facility] Immature granulocytes/100 WBC (Bld) 0.9 % 0.0 - 2.0 % [facility] Interpretation and review of laboratory results Abnormal [facility] Lymphocytes (Bld) [#/Vol] 0.4 10*3/uL Low 1. 0 - 4.3 10*3/uL [facility] Lymphocytes/100 WBC (Bld) 3.7 % Low 15 .0 - 45.0 % [facility] MCH (RBC) [Entitic mass] 30.5 pg 26. 0 - 34.0 pg [facility] MCHC (RBC) [Mass/Vol] 33.9 % 30.5 - 36.0 % [facility] MCV (RBC) [Entitic vol] 89.8 fL 77.0 - 99.0 fL [facility] Monocytes (Bld) [#/Vol] 0.7 10*3/uL 0.0 - 0.9 10*3/uL [facility] Monocytes/100 WBC (Bld) 6.9 % 5.0 - 13.0 % [facility] Neutrophils (Bld) [#/Vol] 9.4 10*3/uL High 1. 8 - 7.5 10*3/uL [facility] Neutrophils/100 WBC (Bld) 88 % High 38 .0 - 82.0 % [facility] Nucleated RBC/100 WBC (Bld) [Ratio] 0 % [facility] Platelet mean volume (Bld) [Entitic vol] 9.8 fL 9.0 - 12.7 fL [facility] Platelets (Bld) [#/Vol] 153 10*3/uL 140 - 440 10*3/uL [facility] RBC (Bld) [#/Vol] 3.15 10*6/uL Low 4.40 - 5.9 0 10*6/uL [facility] WBC (Bld) [#/Vol] 10.7 10*3/uL 3.6 - 10.7 10*3/uL [facility] CBC WITH AUTO DIFFERENTIALon 08-24-2024 Basophils (Bld) [#/Vol] 0.0 10*3/uL Normal 0.0-0.2 [facility] Comment on above: Performed By: #### L [id number] ####Facilities Operator: RORO LUNDBERG ([phone])[facility] [place] [address] Basophils/100 WBC (Bld) 0.4 % Normal 0.0-2.0 [facility] Comment on above: Performed By: #### L [id number] ####Facilities Operator: RORO LUNDBERG ([phone])[facility])[address] [place] [address] [place] Eosinophils (Bld) [#/Vol] 0.0 10*3/uL Normal 0.0-0.5 [facility] Comment on above: Performed By: #### L [id number] ####Facilities Operator: RORO LUNDBERG ([phone])[facility])[address] [place] [address] [place] Eosinophils/100 WBC (Bld) 0.1 % Normal 0.0-6.0 [facility] Comment on above: Performed By: #### L [id number] ####Facilities Operator: RORO LUNDBERG ([phone])[facility])[address] [place] [address] Erythrocyte distribution width (RBC) [Ratio] 13.0 % Normal 11.5-15.0 [facility] Comment on above: Performed By: #### L [id number] ####Facilities Operator: RORO LUNDBERG ([id number])[facility])[address] [place] [address] Hematocrit (Bld) [Volume fraction] 28.3 % Low 40.0-52.0 [facility] Comment on above: Performed By: #### L [id number] ####Facilities Operator: RORO LUNDBERG ([phone])[facility])[address] [place] [address] Hemoglobin (Bld) [Mass/Vol] 9.6 g/dL Low 13.0-18. 0 [facility] Comment on above: Performed By: #### L [id number] ####Facilities Operator: RORO LUNDBERG ([phone])[facility])[address] [place] [address] IMMATURE GRANS % 0.9 % Normal 0.0-2.0 [facility] Comment on above: Performed By: #### L [id number] ####Facilities Operator: RORO LUNDBERG ([phone])[facility])[address] [place] [address] IMMATURE GRANS ABSOLUTE 0.1 10*3/uL High <0.1 [facility] Comment on above: Performed By: #### L [id number] ####Facilities Operator: RORO LUNDBERG ([phone])[facility])[address] [place] [address] Lymphocytes (Bld) [#/Vol] 0.4 10*3/uL Low 1.0-4.3 [facility] Comment on above: Performed By: #### L [id number] ####Facilities Operator: RORO LUNDBERG ([phone])[facility])[address] [place] [address] Lymphocytes/100 WBC (Bld) 3.7 % Low 15.0-45.0 [facility] Comment on above: Performed By: #### L [id number] ####Facilities Operator: RORO LUNDBERG ([phone])[facility])[address] [place] [address] MCH (RBC) [Entitic mass] 30.5 pg Normal 26.0-34.0 [facility] Comment on above: Performed By: #### L [id number] ####Facilities Operator: RORO LUNDBERG ([phone])[facility])[address] [place] [address] MCHC 33.9 % Normal 30.5-36.0 [facility] Comment on above: Performed By: #### L [id number] ####Facilities Operator: RORO LUNDBERG ([phone])[facility])[address] [place] [address] MCV (RBC) [Entitic vol] 89.8 fL Normal 77.0-99.0 [facility] Comment on above: Performed By: #### L [id number] ####Facilities Operator: ROOR LUNDBERG ([phone])[facility])[address] [place] [address] Monocytes (Bld) [#/Vol] 0.7 10*3/uL Normal 0.0-0.9 [facility] Comment on above: Performed By: #### L [id number] ####Facilities Operator: RORO LUNDBERG ([phone])[facility])[address] [place] [address] Monocytes/100 WBC (Bld) 6.9 % Normal 5.0-13.0 [facility] Comment on above: Performed By: #### L [id number] ####Facilities Operator: RORO LUNDBERG ([id number])[facility])[address] [place] [address] NEUTROPHILS ABSOLUTE 9.4 10*3/uL High 1.8-7.5 [facility] Comment on above: Performed By: #### L [id number] ####Facilities Operator: RORO LUNDBERG ([phone])[facility])[address] [place] [address] Neutrophils/100 WBC (Bld) 88.0 % High 38.0-82.0 [facility] Comment on above: Performed By: #### L [id number] ####Facilities Operator: RORO LUNDBERG ([phone])[facility])[address] [place] [address] NRBC 0.0 /100 WBCs Normal 0.0-2.0 [facility] Comment on above: Performed By: #### L [id number] ####Facilities Operator: RORO LUNDBERG ([id number])[facility] [place] [address] Platelet mean volume (Bld) [Entitic vol] 9.8 fL Normal 9.0-12.7 [facility] Comment on above: Performed By: #### L [id number] ####Facilities Operator: RORO LUNDBERG ([phone])[facility] [place] [address] Platelets (Bld) [#/Vol] 153 10*3/uL Normal 140-440 [facility] Comment on above: Performed By: #### L [id number] ####Facilities Operator: RORO LUNDBERG ([id number])[facility] [place] [address] RBC (Bld) [#/Vol] 3.15 10*6/uL Low 4.40-5.90 [facility] Comment on above: Performed By: #### L [id number] ####Facilities Operator: RORO LUNDBERG ([phone])[facility] [place] [address] WBC (Bld) [#/Vol] 10.7 10*3/uL Normal 3.6-10.7 [facility] Comment on above: Performed By: #### L [id number] ####Facilities Operator: RORO LUNDBERG ([id number])[facility])[address] [place] [address] COMPLETE URINALYSIS WITH REF CESAR TO CULTUREon 08-24-2024 BACTERIA (#/HPF) IN URINE Negative Normal Negative [facility] Comment on above: Performed By: #### L [id number] ####Facilities Operator: RORO LUNDBERG ([id number])[facility] [place] [address] BILIRUBIN, TOTAL PRESENCE IN URINE Negative Normal Negative [facility] Comment on above: Performed By: #### L [id number] ####Facilities Operator: RORO LUNDBERG ([id number])[facility])[address] [place] [address] Clarity (U) Clear Normal Clear [facility] Comment on above: Performed By: #### L [id number] ####Facilities Operator: RORO LUNDBERG ([phone])[facility] [place] [address] Color (U) Colorless Normal Lt. Yellow [facility] Comment on above: Performed By: #### L [id number] ####Facilities Operator: RORO LUNDBERG ([phone])[facility])[address] [place] [address] GLUCOSE (MG/DL) IN URINE 1,000 mg/dL Abnormal Normal (<7 0) [facility] Comment on above: Performed By: #### L [id number] ####Facilities Operator: RORO LUNDBERG ([phone])[facility])[address] [place] [address] HEMOGLOBIN PRESENCE IN URINE 0.06 mg/dL Abnormal Negative [facility] Comment on above: Performed By: #### L [id number] ####Facilities Operator: RORO LUNDBERG ([phone])[facility])[address] [place] [address] HYALINE CASTS (#/LPF) IN URINE SEDIMENT BY MICROSCOPY Negative Normal Negative [facility] Comment on above: Performed By: #### L [id number] ####Facilities Operator: RORO LUNDBERG ([phone])[facility])[address] [place] [address] Ketones Ql (U) Trace Abnormal Negative [facility] Comment on above: Performed By: #### L [id number] ####Facilities Operator: RORO LUNDBERG ([phone])[facility])[address] [place] [address] LEUKOCYTE ESTERASE PRESENCE IN URINE BY TEST STRIP Negative Normal Negative [facility] Comment on above: Performed By: #### L [id number] ####Facilities Operator: RORO LUNDBERG ([phone])[facility])[address] [place] [address] NITRITE PRESENCE IN URINE Negative Normal Negative [facility] Comment on above: Performed By: #### L [id number] ####Facilities Operator: RORO LUNDBERG ([phone])[facility])[address] [place] [address] pH (U) 7.5 [pH] Normal 5.0-8.0 [facility] Comment on above: Performed By: #### L [id number] ####Facilities Operator: RORO LUNDBERG ([phone])[facility])[address] [place] [address] Protein (U) [Mass/Vol] 200 mg/dL Abnormal Negative [facility] Comment on above: Performed By: #### L [id number] ####Facilities Operator: RORO LUNDBERG ([phone])[facility])[address] [place] [address] RBC (#/HPF) IN URINE SEDIMENT 0-2 Normal 0-2 [facility] Comment on above: Performed By: #### L [id number] ####Facilities Operator: RORO LUNDBERG ([phone])[facility])[address] [place] [address] Specific gravity (U) [Rel density] 1.018 Normal 1.005-1.030 [facility] Comment on above: Result Comment: THEODORA [place] COMMENTS: A specimen with <=10 WBC is not consistent with inflammation. This specimen will not reflex to a urine culture. Performed By: #### L [id number] ####Facilities Operator: RORO LUNDBERG ([phone])[facility] ([facility])[address] [place] [address] [place] SQUAMOUS EPITHELIAL CELLS (#/HPF) IN URINE SEDIMENT Negative Normal 3-5 [facility] Comment on above: Performed By: #### L [id number] ####Facilities Operator: RORO LUNDBERG ([phone])[facility])[address] [place] [address] UROBILINOGEN (MG/DL) IN URINE Normal Normal Normal (0-1) [facility] Comment on above: Performed By: #### L [id number] ####Facilities Operator: RORO LUNDBERG ([phone])[facility])[address] [place] [address] WBC (LEUKOCYTE) (#/HPF) IN URINE SEDIMENT 0-2 Normal 0-5 [facility] Comment on above: Performed By: #### L [id number] ####Facilities Operator: RORO LUNDBERG ([phone])[facility])[address] [place] [address] COMPREHENSIVE METABOLIC PANE Jose 08-24-2024 Albumin [Mass/Vol] 2.9 g/dL Low 3.5-5.0 [facility] Comment on above: Performed By: #### L AB99, LAB17, [id number], [id number] ####Facilities Operator: RORO LUNDBERG ([phone])[facility])[address] [place] [address] ALP [Catalytic activity/Vol] 80 U/L Normal 40-150 [facility] Comment on above: Performed By: #### L AB99, LAB17, [id number], [id number] ####Facilities Operator: RORO LUNDBERG ([phone])[facility])[address] [place] [address] [place] ALT [Catalytic activity/Vol] 37 U/L Normal <40 [facility] Comment on above: Performed By: #### L AB99, LAB17, [id number], [id number] ####Facilities Operator: RORO LUNDBERG ([phone])[facility])[address] [place] [address] Anion gap [Moles/Vol] 15 mmol/L High 3-13 [facility] Comment on above: Performed By: #### L AB99, LAB17, [id number], [id number] ####Facilities Operator: RORO LUNDBERG ([phone])[facility])[address] [place] [address] AST [Catalytic activity/Vol] 81 U/L High <34 [facility] Comment on above: Result Comment: TC Potential interference from hemolysis Performed By: #### L AB99, LAB17, [id number], [id number] ####Facilities Operator: RORO LUNDBERG ([phone])[facility])[address] [place] [address] Bilirubin [Mass/Vol] 0.5 mg/dL Normal <1.2 [facility] Comment on above: Performed By: #### L AB99, LAB17, [id number], [id number] ####Facilities Operator: RORO LUNDBERG ([phone])[facility])[address] [place] [address] Calcium [Mass/Vol] 8.8 mg/dL Normal 8.4-10.2 [facility] Comment on above: Performed By: #### L AB99, LAB17, [id number], [id number] ####Facilities Operator: RORO LUNDBERG ([phone])[facility])[address] [place] [address] Chloride [Moles/Vol] 101 mmol/L Normal 98-107 [facility] Comment on above: Performed By: #### L AB99, LAB17, [id number], [id number] ####Facilities Operator: RORO LUNDBERG ([phone])[facility])[address] [place] [address] [place] CO2 [Moles/Vol] 19 mmol/L Low 22-29 [facility] Comment on above: Performed By: #### L AB99, LAB17, [id number], [id number] ####Facilities Operator: RORO LUNDBERG ([phone])[facility])[address] [place] [address] Creatinine [Mass/Vol] 5.47 mg/dL High 0.72-1.25 [facility] Comment on above: Performed By: #### L AB99, LAB17, [id number], [id number] ####Facilities Operator: RORO LUNDBERG ([phone])[facility])[address] [place] [address] GLOMERULAR FILTRATION RATE ML/MIN/1.73 SQ M.PREDICTED 12.5 mL/min/1.73m*2 Low >60.0 S [facility] Comment on above: Result Comment: Calc ulation based on the Chronic Kidney Disease Epidemiology Collaboration (CKD-EPI) equation refit without adjustment for race Performed By: #### L AB99, LAB17, [id number], [id number] ####Facilities Operator: RORO LUNDBERG ([phone])[facility])[address] [place] [address] Glucose [Mass/Vol] 140 mg/dL High 74-100 [facility] Comment on above: Performed By: #### L AB99, LAB17, [id number], [id number] ####Facilities Operator: RORO LUNDBERG ([phone])[facility])[address] [place] [address] Potassium [Moles/Vol] 4.0 mmol/L Normal 3.5-5.1 [facility] Comment on above: Result Comment: [facility] potassium values may be up to 0.5 mmol/L lower than serum values. Performed By: #### L AB99, LAB17, [id number], [id number] ####Facilities Operator: RORO LUNDBERG ([phone])[facility])[address] [place] [address] [place] Protein [Mass/Vol] 6.2 g/dL Low 6.4-8.3 [facility] Comment on above: Performed By: #### L AB99, LAB17, [id number], [id number] ####Facilities Operator: RORO LUNDBERG ([phone])[facility])[address] [place] [address] Sodium [Moles/Vol] 135 mmol/L Low 136-145 [facility] Comment on above: Performed By: #### L AB99, LAB17, [id number], [id number] ####Facilities Operator: RORO LUNDBERG ([phone])[facility])[address] [place] [address] Urea nitrogen [Mass/Vol] 27 mg/dL High 8-21 [facility] Comment on above: Performed By: #### L AB99, LAB17, CTX781, [id number] ####Facilities Operator: RORO LUNDBERG ([phone])[facility] ([facility])[address] [place] [address] Comprehensive metabolic 1998 panelOrdered By: Brenda Gleason on 08-24-2024 Albumin [Mass/Vol] 2.9 g/dL Low 3.5 - 5.0 g/dL [facility] ALP [Catalytic activity/Vol] 80 U/L 40 - 150 U/L [facility] ALT [Catalytic activity/Vol] 37 U/L NINF - 40 U/L [facility] Anion gap [Moles/Vol] 15 mmol/L High 3 - 13 mmol/L [facility] AST [Catalytic activity/Vol] 81 U/L High [facility] - [facility] U/L [facility] Comment on above: TC Potential interference from hemolysis Bilirubin [Mass/Vol] 0.5 mg/dL NINF - 1.2 mg/dL [facility] Calcium [Mass/Vol] 8.8 mg/dL 8.4 - 10. 2 mg/dL [facility] Chloride [Moles/Vol] 101 mmol/L 98 - 10 7 mmol/L [facility] CO2 [Moles/Vol] 19 mmol/L Low 22 - 29 mmol/L [facility] Creatinine [Mass/Vol] 5.47 mg/dL High 0.72 - 1.25 mg/dL [facility] GFR/1.73 sq M.predicted (S/P/Bld) [Vol rate/Area] 12.5 mL/min Low - PINF [facility] Comment on above: Calculation based on the Chronic Kidney Disease Epidemiology Collaboration (CKD-EPI) equation refit without adjustment for race Glucose [Mass/Vol] 140 mg/dL High 74 - 100 mg/dL [facility] Interpretation and review of laboratory results Abnormal [facility] Potassium [Moles/Vol] 4 mmol/L 3.5 - 5.1 mmol/L [facility] Comment on above: Plasma potassium willie ues may be up to 0.5 mmol/L lower than serum values. Protein [Mass/Vol] 6.2 g/dL Low 6.4 - 8.3 g/dL [facility] Sodium [Moles/Vol] 135 mmol/L Low 136 - 145 mmol/L [facility] Urea nitrogen [Mass/Vol] 27 mg/dL High 8 - 21 mg/d L [facility] Consulton 08-24-2024 Consult Department of Internal Medicine Gastroenterology Attending Consult Note Reason for Consult: The patient was seen in consultation at the request of Dr. Hayde Barros re: 7.7 cm new liver mass on CT imaging. CHIEF COMPLAINT: Fever body aches History Obtained From: Patient and EMR HISTORY OF PRESENT ILLNESS: The patient is a 44 y.o. male with significant past medical history of T1DM, ESRD, and HTN who presents as a transfer from [place] ED with sepsis (T 103, BP 93/78. HR 135. GI asked to evaluate for liver mass on CT. Prior EGD 2011. Denies prior colonoscopy and abdominal surgery. Denies current use of OAC, NSAIDS, tobacco, ETOH and recreational drugs. Allergies: Patient has no known allergies. Current Medications: Current Medications[1] Past Medical History: Active Ambulatory Problems Diagnosis Date Noted No Active Ambulatory Problems Resolved Ambulatory Problems Diagnosis Date Noted No Resolved Ambulatory Problems Past Medical History: Diagnosis Date End stage renal failure on dialysis (HCC) Hypertension Type 1 diabetes mellitus (HCC) Past Surgical History: Social History Socioeconomic History Marital status: Spouse name: Not on file Number of children: Not on file Years of education: Not on file Highest education level: Not on file Occupational History Not on file Tobacco Use Smoking status: Never Smokeless tobacco: Never Substance and Sexual Activity Alcohol use: Never Drug use: Never Sexual activity: Defer Other Topics Concern Not on file Social History Narrative Not on file Social Drivers of Health Financial Resource Strain: Low Risk (07/02/2022) Received from [facility] Overall Financial Resource Strain (CARDIA) Difficulty of Paying Living Expenses: Not hard at all Food Insecurity: No Food Insecurity (07/02/2022) Received from [facility] Hunger Vital Sign Worried About Running Out of Food in the Last Year: Never true Ran Out of Food in the Last Year: Never true Transportation Needs: No Transportation Needs (07/02/2022) Received from [facility] PRAPARE - Transportation Lack of Transportation (Medical): No Lack of Transportation (Non-Medical): No Physical Activity: Inactive (07/02/2022) Received from [facility] Exercise Vital Sign Days of Exercise per Week: 0 days Minutes of Exercise per Session: 0 min Stress: No Stress Concern Present (07/02/2022) Received from [facility] [place] [facility] - Occupational Stress Questionnaire Feeling of Stress : Not at all Social Connections: Socially Integrated (07/02/2022) Received from [facility] Social Connection and Isolation Panel [NHANES] Frequency of Communication with Friends and Family: More than three times a week Frequency of Social Gatherings with Friends and Family: More than three times a week Attends Gnosticism Services: More than 4 times per year Active Member of Clubs or Organizations: Yes Attends Club or Organization Meetings: More than 4 times per year Marital Status: Living with partner Intimate Partner Violence: Not on file Housing Stability: Low Risk (07/02/2022) Received from [facility] Housing Stability Vital Sign Unable to Pay for Housing in the Last Year: No Number of Places Lived in the Last Year: 1 Unstable Housing in the Last Year: No Family History: Family History[2] No family history colon or stomach cancer. Social History: TOBACCO: reports that he has never smoked. He has never used smokeless tobacco. ETOH: reports no history of alcohol use. DRUGS: reports no history of drug use. 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 Normal appetite and weight. No DUTTA, visual disturbance, eye pain, jaundice, sore throat or mouth ulcers. No skin rash or itching. No CP, SOB, [place], cough or wheeze. No urinary frequency, urgency, hematuria, or dysuria. No myalgia, arthralgia, or joint swelling. No weakness, numbness, or confusion. GI per HPI. No polyuria, polydipsia, heat or cold intolerance. PHYSICAL EXAM: VS: BP (!) 168/96 Pulse 115 Temp (!) 35.9 ?C (96.7 ?F) (Temporal) Resp 20 Ht 5' 11 (1.803 m) Wt 195 lb (88.5 kg) SpO2 100% BMI 27.20 kg/m? Body mass index is 27.2 kg/m?. Constitutional: No acute distress. Well-nourished. Well hydrated, resting in bed Head/Eyes: Pupils are equal and round; Conjunctiva are not injected; Sclera are non-icteric. ENT: Ears/nose without external abnormalities. Oral mucosa is pink and moist. Neck: No JVD. No carotid bruits; No thyromegaly. Respiratory: Clear to auscultation bilaterally without any added sounds. Effort is normal Heart: Regular, Normal S1 and S2. No murmur; No added sounds. Abdomen: Normal BS, soft, non-tender, non-distended; no hepatomegaly. Extremities/Skin: No LE edema; Skin warm to touch and well perfused. Musculoskeletal: Head - normocephalic. Neck - supple Psychi (more content not included)... Normal [facility] Consult [facility] - Infectious Diseases Advanced Practice Provider Consult Note Reason for Consult: MSSA bacteremia History of Present Illness: 44 yo male with PMHx significant for T1DM, ESRD via TDC, and HTN who presents 08/23 from [place] ED with fever, hypotension, tachycardia concerning for sepsis. Patient reports starting Friday he developed intractable nausea and vomiting. He notes he had some diarrhea last night. Denies fever, chills, CP, SOB, cough, congestion, joint or back pain, and any urinary issues (He notes still produces own urine). Denies any open wounds, hardware presence, or recent dental procedures/cleanings . Notes his TDC has been in placed since December, no recent exchanges. Notes the area is sore and pruritic, but states it has felt this way since December. Denies any redness or swelling around catheter or any drainage. No other new exacerbating or alleviating factors. On presentation, patient afebrile, normotensive, on room air. Labs- WBC 20.3-> 10.7, lactic acid 1.5, procal 5.94, BNP 52427. CXR negative. CT chest/abd/pelvis performed and without infiltrates, masses, pleural effusions; shows R TDC in place and a large heterogenous 7.7cm R lobe liver mass. 08/23 Blood Cx collected 2/2 GPC (MSSA detected). Resp PCR panel and Strep/Legionella Ag negative. Patient is currently on Cefazolin. Past Medical History: Medical History[1] Past Surgical History: Surgical History[2] Current Medications: Current Medications[3] Allergies: Allergies[4] Social History: Social History Socioeconomic History Marital status: Spouse name: Not on file Number of children: Not on file Years of education: Not on file Highest education level: Not on file Occupational History Not on file Tobacco Use Smoking status: Never Smokeless tobacco: Never Substance and Sexual Activity Alcohol use: Never Drug use: Never Sexual activity: Defer Other Topics Concern Not on file Social History Narrative Not on file Social Drivers of Health Financial Resource Strain: Low Risk (07/02/2022) Received from [facility] Overall Financial Resource Strain (CARDIA) Difficulty of Paying Living Expenses: Not hard at all Food Insecurity: No Food Insecurity (07/02/2022) Received from [facility] Hunger Vital Sign Worried About Running Out of Food in the Last Year: Never true Ran Out of Food in the Last Year: Never true Transportation Needs: No Transportation Needs (07/02/2022) Received from [facility] PRAPARE - Transportation Lack of Transportation (Medical): No Lack of Transportation (Non-Medical): No Physical Activity: Inactive (07/02/2022) Received from [facility] Exercise Vital Sign Days of Exercise per Week: 0 days Minutes of Exercise per Session: 0 min Stress: No Stress Concern Present (07/02/2022) Received from [facility] [place] [facility] - Occupational Stress Questionnaire Feeling of Stress : Not at all Social Connections: Socially Integrated (07/02/2022) Received from [facility] Social Connection and Isolation Panel [NHANES] Frequency of Communication with Friends and Family: More than three times a week Frequency of Social Gatherings with Friends and Family: More than three times a week Attends Gnosticism Services: More than 4 times per year Active Member of Clubs or Organizations: Yes Attends Club or Organization Meetings: More than 4 times per year Marital Status: Living with partner Intimate Partner Violence: Not on file Housing Stability: Low Risk (07/02/2022) Received from [facility] Housing Stability Vital Sign Unable to Pay for Housing in the Last Year: No Number of Places Lived in the Last Year: 1 Unstable Housing in the Last Year: No Family History: Family History[5] Review of Systems: Review of Systems Constitutional: Negative for chills, fatigue and fever. HENT: Negative for congestion, ear pain, postnasal drip, rhinorrhea, sinus pressure, sinus pain and sore throat. Eyes: Negative for pain, discharge and itching. Respiratory: Negative for cough, chest tightness and shortness of breath. Cardiovascular: Negative for chest pain, palpitations and leg swelling. Gastrointestinal: Positive for nausea and vomiting. Negative for abdominal distention, abdominal pain, constipation and diarrhea. Genitourinary: Negative for dysuria, flank pain, frequency and urgency. Musculoskeletal: Negative for arthralgias and myalgias. Skin: Negative for color change, rash and wound. Neurological: Negative for dizziness, weakness, light-headedness and headaches. Vitals: Patient Vitals for the past 24 hrs: BP Temp Temp src Pulse Resp SpO2 Height Weight 08/24/24 0825 (!) 168/96 (!) 35.9 ?C (96.7 ?F) Temporal 115 20 100 % -- -- 08/24/24 0418 144/86 36.4 ?C (97.6 ?F) Temporal (!) 123 18 98 % -- -- 08/23/24 2358 142/83 37.6 ?C (99.7 ?F) Temporal (!) 127 22 99 % - (more content not included)... Normal [facility] DRUGS OF ABUSEon 08-24-2024 AMPHETAMINE SCREEN Negative Normal [facility] Comment on above: Performed By: #### L [id number] #### Facilities Operator: RORO LUNDBERG ([phone]) [facility]) [address] [place] [address] BARBITURATES SCREEN Negative Normal [facility] Comment on above: Performed By: #### L [id number] #### Facilities Operator: RORO LUNDBERG ([phone]) [facility]) [address] [place] [address] BENZODIAZEPINE SCREEN Negative Normal [facility] Comment on above: Performed By: #### L [id number] #### Facilities Operator: RORO LUNDBERG ([phone]) [facility]) [address] [place] [address] COCAINE METAB. SCREEN Negative Normal [facility] Comment on above: Performed By: #### L [id number] #### Facilities Operator: RORO LUNDBERG ([phone]) [facility]) [address] [place] [address] FENTANYL SCREEN, UR QUAL Negative Normal [facility] Comment on above: Result Comment: THEODORA [place] COMMENTS: The expected value for all of the drugs listed above is Negative. The following drugs or drug groups have been screened for by Immunoassay at the following thresholds: Amphetamine class (1000 ng/mL) Barbiturates (200 ng/mL) Benzodiazepines (200 ng/mL) Cocaine (300 ng/mL) Methadone (300 ng/mL) Opiates (300 ng/mL) Oxycodone (100 ng/mL) PCP (25 ng/mL) Fentanyl (1.0 ng/ml) NOTE: These results are for medical treatment only. Analysis performed using non-forensic procedures. POSITIVE results are NOT confirmed by a more specific alternative method unless requested. If confirmation is needed, request confirmation under separate order. Performed By: #### L [id number] #### Facilities Operator: RORO LUNDBERG ([phone]) [facility]) [address] [place] [address] METHADONE SCREEN Negative Normal [facility] Comment on above: Performed By: #### L [id number] #### Facilities Operator: RORO LUNDBERG ([phone]) [facility]) [address] [place] [address] OPIATES SCREEN Negative Normal [facility] Comment on above: Performed By: #### L [id number] #### Facilities Operator: RORO LUNDBERG ([phone]) [facility]) [address] [place] [address] OXYCODONE SCREEN Negative Normal [facility] Comment on above: Performed By: #### L [id number] #### Facilities Operator: RORO LUNDBERG ([phone]) [facility]) [address] [place] [address] PHENCYCLIDINE SCREEN Negative Normal [facility] Comment on above: Performed By: #### L [id number] #### Facilities Operator: RORO LUNDBERG ([phone]) [facility]) [address] [place] [address] ECG 12-LEADon 08-24-2024 ECG 12-LEAD IMPRESSION: Sinus tachycardia Consider anterior infarct Nonspecific T abnormalities, lateral leads No previous ECG available for comparison Electronically Signed On 08-24-2024 16:44:[address] [facility] ECG 12-LEAD IMPRESSION: Sinus tachycardia Nonspecific T abnormalities, lateral leads Electronically Signed On 08-24-2024 16:43:[address] [facility] LEGIONELLA AND STREPTOCOCCUS URINE ANTIGENon 08-24-2024 LEGIONELLA AND STREPTOCOCCUS URINE ANTIGEN LEGIONELLA PNEUMOPHILA URINE ANTIGEN Reference Not Detected Not Detected STREPTOCOCCUS PNEUMONIAE URINE ANTIGEN Reference Not Detected Not Detected ORDER COMMENTS: Methodology: Lateral flow enzyme immunoassay This assay is approved for detection of antigens to Streptococcus pneumoniae and Legionella pneumophila serogroup 1; however, other L. pneumophila serogroups may also be detected. [facility] Comment on above: Performed By: #### L [id number] ####Facilities Operator: RORO LUNDBERG ([phone])[facility] [place] [address] LIPASEon 08-24-2024 Lipase [Catalytic activity/Vol] 78 U/L High <55 [facility] Comment on above: Performed By: #### L AB99, LAB17, [id number], [id number] ####Facilities Operator: RORO LUNDBERG ([phone])[facility])[address] [place] [address] Laboratory - Chemistry and C hemistry - challengeon 08-24-2024 Glucose [Mass/Vol] 350 mg/dL High 70 - 100 mg/dL [facility] Glucose [Mass/Vol] 405 mg/dL High 70 - 100 mg/dL [facility] Glucose [Mass/Vol] 355 mg/dL High 70 - 100 mg/dL [facility] Lipase [Catalytic activity/Vol] 78 U/L High NINF - 55 U/L [facility] Magnesium [Mass/Vol] 1.9 mg/dL 1.6 - 2 .6 mg/dL [facility] Laboratory - Drug toxicology on 08-24-2024 Amphetamines Screen method >1000 ng/mL Ql (U) Negative [facility] Barbiturates Screen method >200 ng/mL Ql (U) Negative [facility] Benzodiazepines Ql (U) Negative [facility] Methadone Screen Ql (U) Negative S [facility] Opiates Screen Ql (U) Negative Sum [facility] oxyCODONE Ql (U) Negative [facility] Phencyclidine Ql (U) Negative [facility] Laboratory - Microbiology an d Antimicrobial susceptibilityon 08-24-2024 Bacteria identified Aer cx Nom (Lower resp) Culture canceled due to poor specimen quality. Recollect if clinically indicated. [facility] Lipase [Catalytic activity/V ol]on 08-24-2024 Interpretation and review of laboratory results Abnormal [facility] MAGNESIUMon 08-24-2024 Magnesium [Mass/Vol] 1.9 mg/dL Normal 1.6-2.6 [facility] Comment on above: Result Comment: THEODORA [place] COMMENTS: Higher values can be expected in females during menses. Performed By: #### L AB99, LAB17, [id number], [id number] ####Facilities Operator: RORO LUNDBERG ([phone])[facility] ([facility])[address] [place] [address] Magnesium [Mass/Vol]on 08-24 Higher values can be expected in females during menses. [facility] No Panel Informationon 08-24 Interpretation and review of laboratory results Abnormal [facility] Performed by: [facility], [address] [place] [address] CLIA ID: [id number] [facility] Interpretation and review of laboratory results Abnormal [facility] Performed by: [facility], [address] [place] [address] CLIA ID: [id number] [facility] Interpretation and review of laboratory results Abnormal [facility] Performed by: [facility], [address] [place] [address] CLIA ID: [id number] [facility] Sinus tachycardia Consider anterior infarct Nonspecific T abnormalities, lateral leads No previous ECG available for comparison Electronically Signed On 08-24-2024 16:44:35 EDT by Erick Stevens MD - 08/24/2024 IMPRESSION: Sinus tachycardia Consider anterior infarct Nonspecific T abnormalities, lateral leads No previous ECG available for comparison Electronically Signed On 08-24-2024 16:44:35 EDT by Erick Kirkland [facility] P Fox 28 degrees [facility] [place] Interval 154 ms [facility] QRS Fox 61 degrees [facility] QRSD Interval 84 ms [facility] QT Interval 356 ms [facility] QTC Interval 466 ms [facility] T Wave Fox 101 degrees [facility] Sinus tachycardia Nonspecific T abnormalities, lateral leads Electronically Signed On 08-24-2024 16:43:02 EDT by Erick Kirkland CV Erick Decker MD - 08/24/2024 IMPRESSION: Sinus tachycardia Nonspecific T abnormalities, lateral leads Electronically Signed On 08-24-2024 16:43:02 EDT by Erick Kirkland [facility] Interpretation and review of laboratory results Normal [facility] Legionella pneumophila Ag Not detected Not Dete cted [facility] Streptococcus pneumoniae Ag Not detected Not De tected [facility] Methodology: Lateral flow enzyme immunoassay This assay is approved for detection of antigens to Streptococcus pneumoniae and Legionella pneumophila serogroup 1; however, other L. pneumophila serogroups may also be detected. [facility] Extra Tube Hold for add-ons. [facility] Comment on above: Auto resulted. [facility] Interpretation and review of laboratory results Normal [facility] COCAINE METAB. SCREEN Negative [facility] FENTANYL SCREEN, UR QUAL Negative [facility] The expected value for all of the drugs listed above is Negative. The following drugs or drug groups have been screened for by Immunoassay at the following thresholds: Amphetamine class (1000 ng/mL) Barbiturates (200 ng/mL) Benzodiazepines (200 ng/mL) Cocaine (300 ng/mL) Methadone (300 ng/mL) Opiates (300 ng/mL) Oxycodone (100 ng/mL) PCP (25 ng/mL) Fentanyl (1.0 ng/ml) NOTE: These results are for medical treatment only. Analysis performed using non-forensic procedures. POSITIVE results are NOT confirmed by a more specific alternative method unless requested. If confirmation is needed, request confirmation under separate order. [facility] No Panel InformationOrdered By: Erick Kirkland on 08-24-2024 P Fox 41 degrees [facility] [employer] Work Phone: [place] Interval 152 ms [employer] Phone: QRS Fox 65 degrees [employer] Phone: QRSD Interval 81 ms [employer] Phone: QT Interval 323 ms [employer] Work Phone: QTC Interval 457 ms [employer] Phone: T Wave Fox 95 degrees [employer] Phone: [employer] Phone: No Panel InformationOrdered By: Huseyin Garcia on 08-24-2024 Interpretation and review of laboratory results Abnormal [facility] [employer] mecA/C and MREJ (MRSA) Not detected Not Detecte d [facility] [employer] Staphylococcus aureus Detected Abnormal Not Detected S [facility] Methodology: Multiplex PCR The [employer] BCID panel can detect the following organisms: E. faecalis, E. faecium, Staphylococcus spp., S. aureus, S. epidermidis, S. lugdunensis, Streptococcus spp., S. pyogenes (Group A), S. agalactiae (Group B), S. pneumoniae, A. baumannii complex, B. fragilis, H. influenzae, N. meningitidis, P. aeruginosa, S. maltophilia, Enterobacterales, E. cloacae complex, E. coli, K. aerogenes, K. oxytoca, K. pneumoniae, Proteus spp., Salmonella spp., S. marcescens, C. albicans, C. auris, C. glabrata, C. krusei, C. parapsilosis, C. tropicalis, and C. neoformans/gattii. The following antimicrobial resistance genes are reported if appropriate organisms are detected: mecA/C and Brandyn/B. The following antimicrobial resistance genes are reported if detected and the appropriate organisms are detected: CTX-M, IMP, KPC, NDM, OXA-48-like, VIM, and mcr-1. [facility] Nursing Noteon 08-24-2024 Nursing Note CGM 344 Normal [facility] Nursing Note Central Line Removal Note Line Type: Tunneled Hemodialysis Catheter Line Location: Right Subclavian Line Size: 14.5 Fr x 19cm The procedure was explained to the patient and/or healthcare decision maker and they agreed to proceed. The central line dressing was removed and a sterile field was set up on the bedside table. Sterile towels were draped around the insertion site. The insertion site and entire exposed catheter and lumens was cleaned with antiseptic spray. Sterile gloves were donned. Sutures were cut and removed from the skin. Breathing exercises were explained to the patient. The patient was laid flat. Sterile gauze was placed over the insertion site and the entire intact catheter and cuff was removed without incident. Pressure was held at the site until hemostasis was achieved. Skin was cleansed of antiseptic with saline moistened gauze. Site was covered with a dry sterile dressing. Patient tolerated the procedure well. Everyone in the room wore a mask for the duration of the procedure. Normal [facility] Nursing Note CGM reading is 199 Normal [facility] Nursing Note Patients CGM reading 207 Normal [facility] PHOSPHORUSon 08-24-2024 Phosphate [Mass/Vol] 2.9 mg/dL Normal 2.3-4.7 [facility] Comment on above: Performed By: #### L AB99, LAB17, [id number], [id number] ####Facilities Operator: RORO LUNDBERG ([id number])[address] Phosphate [Moles/Vol]on 07-30 Phosphate [Mass/Vol] 2.9 mg/dL 2.3 - 4 .7 mg/dL [facility] Progress Noteon 08-24-2024 Progress Note Attestation signed by Akbra Brown at 08/24/2024 2:37 PM Endocrinology Attending I performed a history and physical examination of the patient and discussed management with the resident. I reviewed the resident's note and agree with the documented findings and plan of care. I spent over 51% total time 35 minutes counseling and coordinating care. I have reviewed diagnostic workup and images. I have reviewed outpatient and inpatient notes. I have discussed the case with the primary team and the nurse taking care of the patient. Additional Notes: Pt without CSII supplies. Will switch to subcutaneous BB therapy tonight. Pt and nurse instructed to stop insulin pump 2h post lantus admin. Will follow. Department of Internal Medicine Division of Endocrinology, Diabetes, & Metabolism Endocrinology Note Patient Name: Farrah Gonzales : 1980 AGE: 44 y.o. Room/Bed: [facility]/[address] Admission Date: 08/23/2024 Visit Date: 08/24/2024 Reason for Endocrine Consult: Type 1 diabetes mellitus on insulin pump. Provider/Team Requesting Consult: Brayan Barros PCP: Kristal Sullivan MD Outpt Track Announcer: Yes . Jace Ko MD at outside endocrinology practice. ASSESSMENT: #1. Type 1 diabetes mellitus on insulin pump. #2. End-stage renal disease on hemodialysis with a permacath access. #3. Admitted with sepsis > MSSA BACTEREMIA PLAN: #1. Will transition to subcutaneous tonight > discussed with patient and nursing > give lantus 40 units tonight and patient to remove insulin pump 2 hours afterwards #2 starting tomorrow > will do 1 to 50 carb ratio scale AND LDSS insulin #3 monitor response and titrate as needed ICU goal <180 GMF goal <150 POCT BG ACHS Hypoglycemia management per protocol Carb controlled diet ANTICIPATED ENDOCRINE HOME GOING RECOMMENDATIONS: Optimized for Discharge from Endocrine standpoint: No Home Going Endocrine Rx Recommendations-- On insulin pump. 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 SUBJECTIVE/HPI: CHIEF COMPLAINT: No chief complaint on file. Interval history 08/24 - got HD yesterday, Nephrology following - when seen, resting in bed, alert and oriented but fatigued, no acute concerns, no additional insulin boluses programmed overnight, states he ran in 200s HPI Farrah is a 44-year-old white male who was admitted with sepsis, to determine etiology. He has a history of type 1 diabetes mellitus since age 18. He has been on an OmniPod for the last 3 years, with a [employer] G6 CGM. He uses auto mode on his pump. Insulin pump settings as follows: Basal rate 1.2 units/h Carb ratio 1 unit for every 50 g Insulin sensitivity factor I unit for every 50 above 110. Insulin active time 2.5 hours Insulin type NovoLog Total daily dose the last 3 days between 40 to 60 units. 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 He has been on hemodialysis since December 2023. Denies history of diabetic retinopathy or neuropathy. Denies history of thyroid disorder. Type of DM: 1 Onset of DM: Age 18 Home DM Medication Regimen: As above DM control (last A1c/glucose data): A1C 8.8 06/15/24 No results found for: POCGLU Review of Systems Constitutional: Positive for fatigue. Negative for chills and fever. Respiratory: Negative for cough and shortness of breath. Cardiovascular: Negative for chest pain and leg swelling. Gastrointestinal: Negative for abdominal distention, abdominal pain, diarrhea, nausea and vomiting. Genitourinary: Negative for difficulty urinating and dysuria. Psychiatric/Behavior al: Negative for confusion. ROS negative except for those mentioned in HPI. OBJECTIVE: Vitals: 08/23/24 2325 08/23/24 2358 08/24/24 0418 08/24/24 0825 BP: 158/74 142/83 144/86 (!) 168/96 BP Location: Right arm Patient Position: Lying Pulse: (!) 129 (!) 127 (!) 123 115 Resp: 22 18 20 Temp: 37.6 ?C (99.7 ?F) 36.4 ?C (97.6 ?F) (!) 35.9 ?C (96.7 ?F) TempSrc: Temporal Temporal Temporal SpO2: 99% 98% 100% Weight: Height: Physical Exam Constitutional: General: He is not in acute distress. Cardiovascular: Rate and Rhythm: Regular rhythm. Tachycardia present. Pulses: Normal pulses. Heart sounds: No murmur heard. Pulmonary: Effort: Pulmonary effort is normal. No respiratory distress. Breath sounds: Normal breath sounds. No wheezing. Abdominal: General: Abdomen is flat. Bowel sounds are normal. There is no distension. Tenderness: There is no abdominal tenderness. Musculoskeletal: Right lower leg: No edema. Left lower leg: No edema. Skin: General: Skin is warm and dry. Neurological: Mental Status: He is alert. 24 hour intake/output: Intake/Output Summary (Last 24 hours) at 08/24/2024 0914 Last data filed at (more content not included)... Normal [facility] Progress Note Vancomycin therapy has been discontinued by Dr. Munson on 08/24/24. Thank you for the consult. Pharmacy signing off for vancomycin dosing. Jennifer Herrera, Jose Date: 08/24/24 Time: 7:38 AM Normal [facility] RESPIRATORY CULTURE AND STAI Non 08-24-2024 RESPIRATORY CULTURE AND STAIN RESPIRATORY CULTURE Reference Culture canceled due to poor specimen quality. Recollect if clinically indicated. GRAM STAIN RESULT (A) Reference (A) Many Epithelial cells per low power field Few Polymorphonuclear leukocytes per low power field Moderate Gram positive cocci in pairs and chains Few Gram negative bacilli Few Gram positive bacilli Rare Gram positive cocci in clusters Smear contains >= 15 squamous cells per low power field, suggestive of poor quality. Culture not performed. Please re-collect if clinically indicated. [ S = SUSCEPTIBLE R = RESISTANT I = INTERMEDIATE S-DD = Susceptible-dose dependent NS = Non-susceptible NO = No Interpretation ] Normal [facility] Comment on above: Performed By: #### L [id number] ####Facilities Operator: RORO LUNDBERG ([id number])[address] RF Guidance for removal of t unneled CV catheteron 08-24-2024 Radiology Study observation (narrative) [facility] Urinalysis complete panel (U )Ordered By: Lamin Johansen on 08-24-2024 Bacteria LM.HPF (Urine sed) [#/Area] Negative Negative /HPF [facility] Bilirubin Ql (U) Negative Negative mg/dL [facility] Clarity (U) Clear Clear [facility] Color (U) Colorless Lt. Yellow [facility] Epithelial cells.squamous LM.HPF (Urine sed) [#/Area] Negative [facility] Glucose Ql (U) 1,000 Abnormal Normal (<70) mg/dL [facility] Hemoglobin Ql (U) 0.06 mg/dL Abnormal Negative [facility] Hyaline casts Auto (Urine sed) [#/Area] Negative Negative /LPF [facility] Interpretation and review of laboratory results Abnormal [facility] Ketones (U) [Mass/Vol] Trace Abnormal Negat pedro mg/dL [facility] Leukocyte esterase Test strip Ql (U) Negative Negative Lucero/uL [facility] Nitrite Ql (U) Negative Negative [facility] pH (U) 7.5 [pH] 5.0 - 8.0 pH [facility] Protein (U) [Mass/Vol] 200 mg/dL Abnormal Negative [facility] RBC LM.HPF (Urine sed) [#/Area] 0-2 [facility] Specific gravity (U) [Rel density] 1.018 1.005 - 1.030 [facility] Urobilinogen (U) [Mass/Vol] Normal Normal (0-1) mg/dL [facility] WBC LM.HPF (Urine sed) [#/Area] 0-2 [facility] A specimen with <=10 WBC is not consistent with inflammation. This specimen will not reflex to a urine culture. [facility] Vital signsOrdered By: Gianluca Kirkland on 08-24-2024 Heart rate 120 /min bpm [facility] Work Phone: Vital signson 08-24-2024 Heart rate 103 /min bpm [facility] 12 Lead EKGon 08-23-2024 12 Lead EKG Normal [facility] 30on 08-23-2024 30 Problem: Knowledge Deficit Goal: Patient/family/careg iver demonstrates understanding of disease process, treatment plan, medications, and discharge instructions 08/23/20241648 by Mike Lopez RN Outcome: Progressing 08/23/2024 1046 by Mkie Lopez RN Outcome: Progressing Problem: Potential for Compromised Skin Integrity Goal: Skin Integrity is Maintained or Improved 08/23/20241648 by Mike Lopez RN Outcome: Progressing 08/23/2024 1046 by Mike Lopez RN Outcome: Progressing Goal: Nutritional status is improving 08/23/20241648 by Mike Lopez RN Outcome: Progressing 08/23/2024 1046 by Mike Lopez RN Outcome: Progressing Problem: Safety - Adult Goal: Free from fall injury 08/23/2024 164 by Mike Lopez RN Outcome: Progressing 08/23/2024 1046 by Mike Lopez RN Outcome: Progressing Problem: Chronic Conditions and Co-morbidities Goal: Patient's chronic conditions and co-morbidity symptoms are monitored and maintained or improved 08/23/2024 1649 by Mike Lopez RN Outcome: Progressing 08/23/2024 1046 by Mike Lopez RN Outcome: Progressing Normal [facility] 30 Problem: Knowledge Deficit Goal: Patient/family/careg iver demonstrates understanding of disease process, treatment plan, medications, and discharge instructions Outcome: Progressing Problem: Potential for Compromised Skin Integrity Goal: Skin Integrity is Maintained or Improved Outcome: Progressing Goal: Nutritional status is improving Outcome: Progressing Problem: Safety - Adult Goal: Free from fall injury Outcome: Progressing Problem: Chronic Conditions and Co-morbidities Goal: Patient's chronic conditions and co-morbidity symptoms are monitored and maintained or improved Outcome: Progressing Normal [facility] Absolute lymphocyte countOrd ered By: Laurie Elizalde on 08-23-2024 Lymphocytes Auto (Unsp spec) [#/Vol] 0.36 10*3/uL Low 0.83-4.51 [facility] Absolute neutrophil countOrd ered By: Laurie Elizalde on 08-23-2024 Neutrophils (Bld) [#/Vol] 24.4 10*3/uL High 2.0-7.7 [facility] Activated partial thrombopla stin time (aPTT) in platelet poor plasma by coagulation aOrdered By: Laurie Elizalde on 08-23-2024 aPTT Coag (PPP) [Time] 28.3 s 24.1-36.[address] [facility] Anion gap in Serum or Plasma Ordered By: Laurie Elizalde on 08-23-2024 Anion gap [Moles/Vol] 22 mmol/L High 5-15 [facility] Automated lymphocyte count a s percentage of total leukocytesOrdered By: Laurie Elizalde on 08-23-2024 Lymphocytes/100 WBC Auto (Unsp spec) 1.4 % Low 19-41 [facility] BC GPC IDon 08-23-2024 GPC ID Normal [facility] Comment on above: Performed By: #### M 100.636, L300.3900, L500.4050, L300.4310, L503.6005, L100.0100, M200.1000 ####[facility] [id number] [place], [address] BLOOD CULTUREon 08-23-2024 Bacteria identified Cx Nom (Bld) BLOOD CULTURE (AA) Reference STAPHYLOCOCCUS AUREUS Staphylococcus aureus (AA) ID consult required per med staff policy dated 2021. This is an edited result. Previous organism was Gram-positive cocci on 08/24/2024 at 0543 EDT. ORDER COMMENTS: Blood Collection Site: Left Forearm Organism: STAPHYLOCOCCUS AUREUS Antibiotic JAG Interpretation Status Clindamycin 0.25 ug/ml S F Gentamicin <=0.5 ug/ml S F Oxacillin <=0.25 ug/ml S F Trimethoprim / Sulfamethoxazole <=10 ug/ml S F Vancomycin 1 ug/ml S F [ S = SUSCEPTIBLE R = RESISTANT I = INTERMEDIATE S-DD = Susceptible-dose dependent NS = Non-susceptible NO = No Interpretation ] Normal [facility] Comment on above: Performed By: #### L [id number], [id number] ####Facilities Operator: RORO LUNDBERG ([id number])[address] Bacteria identified Cx Nom (Bld) BLOOD CULTURE (AA) Reference STAPHYLOCOCCUS AUREUS Staphylococcus aureus (AA) ID consult required per med staff policy dated 2021. For identification and/or sensitivity, refer to culture collected on: 08/23/24 at 1303([id number]) This is an edited result. Previous organism was Gram-positive cocci on 08/24/2024 at 0543 EDT. PBP2A Reference Negative ORDER COMMENTS: Blood Collection Site: Right Upper Arm [ S = SUSCEPTIBLE R = RESISTANT I = INTERMEDIATE S-DD = Susceptible-dose dependent NS = Non-susceptible NO = No Interpretation ] [facility] Comment on above: Performed By: #### L [id number] #### Facilities Operator: RORO LUNDBERG ([phone]) [facility] [address] [place] [address] BLOOD CULTURE IDENTIFICATION - AEROBICon 08-23-2024 BLOOD CULTURE IDENTIFICATION - AEROBIC STAPHYLOCOCCUS AUREUS, BLOOD (A) Reference Detected Not Detected MECA/C AND MREJ (MRSA), BLOOD Reference Not Detected Not Detected ORDER COMMENTS: Methodology: Multiplex PCR The [employer] BCID panel can detect the following organisms: E. faecalis, E. faecium, Staphylococcus spp., S. aureus, S. epidermidis, S. lugdunensis, Streptococcus spp., S. pyogenes (Group A), S. agalactiae (Group B), S. pneumoniae, A. baumannii complex, B. fragilis, H. influenzae, N. meningitidis, P. aeruginosa, S. maltophilia, Enterobacterales, E. cloacae complex, E. coli, K. aerogenes, K. oxytoca, K. pneumoniae, Proteus spp., Salmonella spp., S. marcescens, C. albicans, C. auris, C. glabrata, C. krusei, C. parapsilosis, C. tropicalis, and C. neoformans/gattii. The following antimicrobial resistance genes are reported if appropriate organisms are detected: mecA/C and Brandyn/B. The following antimicrobial resistance genes are reported if detected and the appropriate organisms are detected: CTX-M, IMP, KPC, NDM, OXA-48-like, VIM, and mcr-1. Normal [facility] Comment on above: Performed By: #### L [id number], [id number] ####Facilities Operator: RORO LUNDBERG ([phone])[facility] [place] [address] BUN/creatinine ratioOrdered By: Laurie Elizalde on 08-23-2024 Urea nitrogen/Creatinine [Mass ratio] 6.1 mg/mg Low 10-20 [facility] Basophil percentageOrdered B y: Laurie Elizalde on 08-23-2024 Basophils/100 WBC (Bld) 0.3 % 0-1 [facility] Beta-Hydroxbytyrateon 2024 BETA-HYDROXYBUT 1.2 mmol/L Normal 0.0-0.3 [facility] Comment on above: Order Comment: ADD O N Performed By: #### L [id number] ####[facility] [id number] [place], [place], [id number] Beta-hydroxybutyrateOrdered By: Laurie Elizalde on 08-23-2024 Beta hydroxybutyrate [Mass/Vol] 1.2 mmol/L 0.0-0.3 [facility] Bilirubin Test strip Ql (U)O rdered By: Laurie Elizalde on 08-23-2024 Bilirubin Ql (U) Negative Negative [facility] Bilirubin, totalOrdered By: Laurie Elizalde on 08-23-2024 Bilirubin [Mass/Vol] 0.41 mg/dL 0.00-1.30 [facility] Blood cultureOrdered By: Farrah Elizalde on 08-23-2024 Bacteria identified Cx Nom (Bld) Staphylococcus aureus Abnormal [facility] Blood manual differential co mment interpretation (narrative result)Ordered By: Laurie Elizalde on 08-23-2024 Manual differential comment Dilshad (Bld) [Interp] SCANNED [facility] Comment on above: NEUTROPHILIA PRESENT LYMPHOPENIA PRESENTLEFT SHIFT: BANDS PRESENT 1+ C-REACTIVE PROTEINon 025 CRP [Mass/Vol] 282.2 mg/L High <5.0 [facility] Comment on above: Performed By: #### L [id number] #### Facilities Operator: RORO LUNDBERG ([id number]) [address] CBC W Auto Differential pane l (Bld)Ordered By: Mindy James on 08-23-2024 Erythrocyte distribution width (RBC) [Ratio] 13 % 11.5 - 15.0 % [facility] Hematocrit (Bld) [Volume fraction] 29.5 % Low 40.0 - 52.0 % [facility] Hemoglobin (Bld) [Mass/Vol] 10.4 g/dL Low 13.0 - 18.0 g/dL [facility] Interpretation and review of laboratory results Abnormal [facility] [facility] MCH (RBC) [Entitic mass] 31.1 pg 26. 0 - 34.0 pg [facility] MCHC (RBC) [Mass/Vol] 35.3 % 30.5 - 36.0 % [facility] MCV (RBC) [Entitic vol] 88.3 fL 77.0 - 99.0 fL [facility] Platelet mean volume (Bld) [Entitic vol] 9.7 fL 9.0 - 12.7 fL [facility] Platelets (Bld) [#/Vol] 177 10*3/uL 140 - 440 10*3/uL [facility] RBC (Bld) [#/Vol] 3.34 10*6/uL Low 4.40 - 5.9 0 10*6/uL [facility] WBC (Bld) [#/Vol] 20.3 10*3/uL High 3.6 - 10.7 10*3/uL [facility] CBC W/Diff, Automatedon 07-30 SMEAR COMMENT SCANNED Normal [facility] Comment on above: Result Comment: NEUT ROPHILIA PRESENTLYMPHOPENIA PRESENTLEFT SHIFT: BANDS PRESENT 1+ Performed By: #### M 100.636, L300.3900, L500.4050, L300.4310, L503.6005, L100.0100, M200.1000 ####[facility] [address] [place], [place], [id number] CBC WITH AUTO DIFFERENTIALon 08-23-2024 Erythrocyte distribution width (RBC) [Ratio] 13.0 % Normal 11.5-15.0 [facility] Comment on above: Performed By: #### L [id number] #### Facilities Operator: RORO LUNDBERG ([phone]) [facility] ([facility]) [address] [place] [address] Hematocrit (Bld) [Volume fraction] 29.5 % Low 40.0-52.0 [facility] Comment on above: Performed By: #### L [id number] #### Facilities Operator: RORO LUNDBERG ([phone]) [facility] ([facility]) [address] [place] [address] Hemoglobin (Bld) [Mass/Vol] 10.4 g/dL Low 13.0-18. 0 [facility] Comment on above: Performed By: #### L [id number] #### Facilities Operator: RORO LUNDBERG ([phone]) [facility] [address] [place] [address] MCH (RBC) [Entitic mass] 31.1 pg Normal 26.0-34.0 [facility] Comment on above: Performed By: #### L [id number] #### Facilities Operator: RORO LUNDBERG ([phone]) [facility] ([facility]) [address] [place] [address] MCHC 35.3 % Normal 30.5-36.0 [facility] Comment on above: Performed By: #### L [id number] #### Facilities Operator: RORO LUNDBERG ([phone]) [facility] ([facility]) [address] [place] [address] MCV (RBC) [Entitic vol] 88.3 fL Normal 77.0-99.0 [facility] Comment on above: Performed By: #### L [id number] #### Facilities Operator: RORO LUNDBERG ([phone]) [facility] ([facility]) [address] [place] [address] Platelet mean volume (Bld) [Entitic vol] 9.7 fL Normal 9.0-12.7 [facility] Comment on above: Performed By: #### L [id number] #### Facilities Operator: RORO LUNDBERG ([phone]) [facility] ([facility]) [address] [place] [address] Platelets (Bld) [#/Vol] 177 10*3/uL Normal 140-440 [facility] Comment on above: Performed By: #### L [id number] #### Facilities Operator: RORO LUNDBERG ([phone]) [facility] ([facility]) [address] [place] [address] RBC (Bld) [#/Vol] 3.34 10*6/uL Low 4.40-5.90 [facility] Comment on above: Performed By: #### L [id number] #### Facilities Operator: RORO LUNDBERG ([phone]) [facility] ([facility]) [address] [place] [address] WBC (Bld) [#/Vol] 20.3 10*3/uL High 3.6-10.7 [facility] Comment on above: Performed By: #### L [id number] #### Facilities Operator: RORO LUNDBERG ([phone]) [facility] ([facility]) [address] [place] [address] CKon 08-23-2024 CK [Catalytic activity/Vol] 90 U/L Normal 30-185 [facility] Comment on above: Performed By: #### L [id number] #### Facilities Operator: RORO LUNDBERG ([phone]) [facility] ([facility]) [address] [place] [address] CK [Catalytic activity/Vol]o n 08-23-2024 Interpretation and review of laboratory results Normal [facility] METABOLIC PANE Jose 08-23-2024 Albumin [Mass/Vol] 3.3 g/dL Low 3.5-5.0 [facility] Comment on above: Performed By: #### L [id number] #### Facilities Operator: RORO LUNDBERG ([phone]) [facility] ([facility]) [address] [place] [address] ALP [Catalytic activity/Vol] 85 U/L Normal 40-150 [facility] Comment on above: Performed By: #### L [id number] #### Facilities Operator: RORO LUNDBERG ([phone]) [facility] ([facility]) [address] [place] [address] ALT [Catalytic activity/Vol] 10 U/L Normal <40 [facility] Comment on above: Performed By: #### L [id number] #### Facilities Operator: RORO LUNDBERG ([phone]) [facility] ([facility]) [address] [place] [address] Anion gap [Moles/Vol] 15 mmol/L High 3-13 [facility] Comment on above: Performed By: #### L [id number] #### Facilities Operator: RORO LUNDBERG ([phone]) [facility] ([facility]) [address] [place] [address] AST [Catalytic activity/Vol] 22 U/L Normal <34 [facility] Comment on above: Performed By: #### L [id number] #### Facilities Operator: RORO LUNDBERG ([phone]) [facility] ([facility]) [address] [place] [address] Bilirubin [Mass/Vol] 0.5 mg/dL Normal <1.2 [facility] Comment on above: Performed By: #### L [id number] #### Facilities Operator: RORO LUNDBERG ([phone]) [facility] ([facility]) [address] [place] [address] Calcium [Mass/Vol] 8.8 mg/dL Normal 8.4-10.2 [facility] Comment on above: Performed By: #### L [id number] #### Facilities Operator: RORO LUNDBERG ([phone]) [facility] ([facility]) [address] [place] [address] Chloride [Moles/Vol] 99 mmol/L Normal 98-107 [facility] Comment on above: Performed By: #### L [id number] #### Facilities Operator: RORO LUNDBERG ([id number]) [facility]) [address] [place] [address] CO2 [Moles/Vol] 20 mmol/L Low 22-29 [facility] Comment on above: Performed By: #### L [id number] #### Facilities Operator: RORO LUNDBERG ([phone]) [facility]) [address] [place] [address] Creatinine [Mass/Vol] 9.57 mg/dL High 0.72-1.25 [facility] Comment on above: Performed By: #### L [id number] #### Facilities Operator: RORO LUNDBERG ([phone]) [facility]) [address] [place] [address] GLOMERULAR FILTRATION RATE ML/MIN/1.73 SQ M.PREDICTED 6.4 mL/min/1.73m*2 Low >60.0 [facility] Comment on above: Result Comment: Calc ulation based on the Chronic Kidney Disease Epidemiology Collaboration (CKD-EPI) equation refit without adjustment for race Performed By: #### L [id number] #### Facilities Operator: RORO LUNDBERG ([phone]) [facility] ([facility]) [address] [place] [address] Glucose [Mass/Vol] 224 mg/dL High 74-100 [facility] Comment on above: Performed By: #### L [id number] #### Facilities Operator: RORO LUNDBERG ([id number]) [facility]) [address] [place] [address] Potassium [Moles/Vol] 4.4 mmol/L Normal 3.5-5.1 [facility] Comment on above: Result Comment: [facility] potassium values may be up to 0.5 mmol/L lower than serum values. Performed By: #### L [id number] #### Facilities Operator: RORO LUNDBERG ([phone]) [facility] ([facility]) [address] [place] [address] Protein [Mass/Vol] 6.4 g/dL Normal 6.4-8.3 [facility] Comment on above: Performed By: #### L [id number] #### Facilities Operator: RORO LUNDBERG ([phone]) [facility]) [address] [place] [address] Sodium [Moles/Vol] 134 mmol/L Low 136-145 [facility] Comment on above: Performed By: #### L [id number] #### Facilities Operator: RORO LUNDBERG ([phone]) [facility]) [address] [place] [address] [place] Urea nitrogen [Mass/Vol] 59 mg/dL High 8-21 [facility] Comment on above: Performed By: #### L [id number] #### Facilities Operator: RORO LUNDBERG ([phone]) [facility]) [address] [place] [address] CT Abdomen and Pelvis WO and W contrast Rickey 08-23-2024 Patient Name: FARRAH GONZALES : 1980 Exam Date/Time: 08/23/2024 14:56 Procedure: CT CHEST ABDOMEN PELVIS W CONTRAST Ordering Provider: TRUJILLO CLAIRE Reason For Exam: nausea/vomiting, sepsis of unknown origin HISTORY: Nausea vomiting sepsis of unknown origin After intravenous contrast, sections performed through the chest abdomen pelvis. Dose reduction was employed with automated exposure control. No comparison CT studies. FINDINGS: 1. CT CHEST --- There are no definite infiltrates masses or pleural effusions Right jugular tunneled dialysis catheter, left coronary artery stent with calcified plaquing. 2. CT ABDOMEN--- There is a heterogeneous large 7.7 cm MASS right lobe liver. Aortoiliac calcified plaquing with probable punctate areas of left renal artery calcification. Question of punctate gallbladder calculi or hyperdense small areas of sludge. 3. CT PELVIS--- There is a normal appendix with no free fluid or free air. Moderate amount of stool in colon with few small scattered colonic diverticuli. Report Dictated on Electronically Signed By: Julian Guillermo MD Electronically Signed Date/Time: 08/23/2024 8:42 PM [facility] RADIOLOGY [facility] Julian Guillermo MD - 08/23/2024 Patient Name: FARRAH GONZALES : 1980 Exam Date/Time: 08/23/2024 14:56 Procedure: CT CHEST ABDOMEN PELVIS W CONTRAST Ordering Provider: TRUJILLO CLAIRE Reason For Exam: nausea/vomiting, sepsis of unknown origin HISTORY: Nausea vomiting sepsis of unknown origin After intravenous contrast, sections performed through the chest abdomen pelvis. Dose reduction was employed with automated exposure control. No comparison CT studies. FINDINGS: 1. CT CHEST --- There are no definite infiltrates masses or pleural effusions Right jugular tunneled dialysis catheter, left coronary artery stent with calcified plaquing. 2. CT ABDOMEN--- There is a heterogeneous large 7.7 cm MASS right lobe liver. Aortoiliac calcified plaquing with probable punctate areas of left renal artery calcification. Question of punctate gallbladder calculi or hyperdense small areas of sludge. 3. CT PELVIS--- There is a normal appendix with no free fluid or free air. Moderate amount of stool in colon with few small scattered colonic diverticuli. Report Dictated on Electronically Signed By: Julian Guillermo MD Electronically Signed Date/Time: 08/23/2024 8:42 PM EDT [facility] Radiology Study [facility]narrative) [facility]vis [facility] and W contrast IVOrdered By: Julian Guillermo on 08-23-2024 [employer] Work Phone: CT CHEST ABDOMEN PELVIS W CO NTRASTon 08-23-2024 CT CHEST ABDOMEN PELVIS W CONTRAST Patient Name: [facility] 1980 [id number] Exam Date/Time: 08/23/2024 14:56 Procedure: CT CHEST ABDOMEN PELVIS W CONTRAST Ordering Provider: TRUJILLO CLAIRE Reason For Exam: nausea/vomiting, sepsis of unknown origin HISTORY: Nausea vomiting sepsis of unknown origin After intravenous contrast, sections performed through the chest abdomen pelvis. Dose reduction was employed with automated exposure control. No comparison CT studies. FINDINGS: 1. CT CHEST --- There are no definite infiltrates masses or pleural effusions Right jugular tunneled dialysis catheter, left coronary artery stent with calcified plaquing. 2. CT ABDOMEN--- There is a heterogeneous large 7.7 cm MASS right lobe liver. Aortoiliac calcified plaquing with probable punctate areas of left renal artery calcification. Question of punctate gallbladder calculi or hyperdense small areas of sludge. 3. CT PELVIS--- There is a normal appendix with no free fluid or free air. Moderate amount of stool in colon with few small scattered colonic diverticuli. Report Dictated on Electronically Signed By: Julian Guillermo MD Electronically Signed Date/Time: 08/23/2024 8:42 PM EDT Principal Problem: History of myocardial infarction CT chest abdomen pelvis with contrast nausea/vomiting, sepsis of unknown origin End stage renal failure - on dialysis Normal [facility] Carbon dioxide, total [Moles /volume] in Central venous bloodOrdered By: Laurie Elizalde on 08-23-2024 CO2 [Moles/Vol] 19.1 mmol/L Low 21.0-32.0 [facility] Chest 1 View (Portable)on Chest 1 View (Portable) Normal [facility] Chloride assayOrdered By: Tito Elizalde on 08-23-2024 Chloride [Moles/Vol] 93 mmol/L Low 98-108 [facility] Comprehensive Metabolic Prof ilon 08-23-2024 Albumin [Mass/Vol] 4.7 g/dL Normal 3.5-5.0 [facility] Comment on above: Performed By: #### M 100.636, L300.3900, L500.4050, L300.4310, L503.6005, L100.0100, M200.1000 ####[facility] [address] [place], [address] Albumin/Globulin [Mass ratio] 1.6 {ratio} Normal 0.9-2.4 [facility] Comment on above: Performed By: #### M 100.636, L300.3900, L500.4050, L300.4310, L503.6005, L100.0100, M200.1000 ####[facility] [address] [place], [address] ALK PHOS 94 U/L Normal 40-129 [facility] Comment on above: Performed By: #### M 100.636, L300.3900, L500.4050, L300.4310, L503.6005, L100.0100, M200.1000 ####[facility] [address] [place], [address] ALT [Catalytic activity/Vol] 12 U/L Normal <=46 [facility] Comment on above: Performed By: #### M 100.636, L300.3900, L500.4050, L300.4310, L503.6005, L100.0100, M200.1000 ####[facility] [address] [place], [address] AST [Catalytic activity/Vol] 17 U/L Normal <=37 [facility] Comment on above: Performed By: #### M 100.636, L300.3900, L500.4050, L300.4310, L503.6005, L100.0100, M200.1000 ####[facility] [address] [place], [address] Bilirubin [Mass/Vol] 0.41 mg/dL Normal 0.00-1.30 [facility] Comment on above: Performed By: #### M 100.636, L300.3900, L500.4050, L300.4310, L503.6005, L100.0100, M200.1000 ####[facility] [address] [place], [address] BUN/CRE 6.1 RATIO Low 10-20 [facility] Comment on above: Performed By: #### M 100.636, L300.3900, L500.4050, L300.4310, L503.6005, L100.0100, M200.1000 ####[facility] [address] [place], [address] Calcium [Mass/Vol] 10.5 mg/dL Normal 7.6-11.0 [facility] Comment on above: Performed By: #### M 100.636, L300.3900, L500.4050, L300.4310, L503.6005, L100.0100, M200.1000 ####[facility] [address] [place], [address] Chloride [Moles/Vol] 93 mmol/L Low 98-108 [facility] Comment on above: Performed By: #### M 100.636, L300.3900, L500.4050, L300.4310, L503.6005, L100.0100, M200.1000 ####[facility] [address] [place], [address] CO2 [Moles/Vol] 19.1 mmol/L Low 21.0-32.0 [facility] Comment on above: Performed By: #### M 100.636, L300.3900, L500.4050, L300.4310, L503.6005, L100.0100, M200.1000 ####[facility] [address] [place], [place], [id number]) Creatinine [Mass/Vol] 8.87 mg/dL Invalid Interpretation Code 0.70-1.20 [facility] Comment on above: Result Comment: Crit ical Result(s) Called at: 0139 by:?? MONET CHILDS Results read back by same. Performed By: #### M 100.636, L300.3900, L500.4050, L300.4310, L503.6005, L100.0100, M200.1000 ####[facility] [address] [place], [place], [phone] ECRCL 11.55 ml/min Low 50-250 [facility] Comment on above: Performed By: #### M 100.636, L300.3900, L500.4050, L300.4310, L503.6005, L100.0100, M200.1000 ####[facility] [address] [place], [address] GAP 22 High 5-15 [facility] Comment on above: Performed By: #### M 100.636, L300.3900, L500.4050, L300.4310, L503.6005, L100.0100, M200.1000 ####[facility] [address] [place], [address] GFR/1.73 sq M.predicted among non-blacks MDRD (S/P/Bld) [Vol rate/Area] 7 mL/min/{1.73_m2} Low >60 [facility] Comment on above: Result Comment: mL/m in/1.73m2 CKD-EPI Creatinine Equation (2020) Performed By: #### M 100.636, L300.3900, L500.4050, L300.4310, L503.6005, L100.0100, M200.1000 ####[facility] [address] [place], [address] Globulin (S) [Mass/Vol] 3.0 g/dL Normal 2.2-4.2 [facility] Comment on above: Performed By: #### M 100.636, L300.3900, L500.4050, L300.4310, L503.6005, L100.0100, M200.1000 ####[facility] [address] [place], [address] Glucose [Mass/Vol] 220 mg/dL High 70-99 [facility] Comment on above: Performed By: #### M 100.636, L300.3900, L500.4050, L300.4310, L503.6005, L100.0100, M200.1000 ####[facility] [address] [place], [address] Potassium [Moles/Vol] 3.6 mmol/L Normal 3.3-5.1 [facility] Comment on above: Performed By: #### M 100.636, L300.3900, L500.4050, L300.4310, L503.6005, L100.0100, M200.1000 ####[facility] [address] [place], [address] Sodium [Moles/Vol] 135 mmol/L Normal 133-145 [facility] Comment on above: Performed By: #### M 100.636, L300.3900, L500.4050, L300.4310, L503.6005, L100.0100, M200.1000 ####[facility] [address] [place], [address] T PROT 7.6 g/dL Normal 5.9-8.4 [facility] Comment on above: Performed By: #### M 100.636, L300.3900, L500.4050, L300.4310, L503.6005, L100.0100, M200.1000 ####[facility] [address] [place], [address] Urea nitrogen [Mass/Vol] 54 mg/dL High 4-19 [facility] Comment on above: Performed By: #### M 100.636, L300.3900, L500.4050, L300.4310, L503.6005, L100.0100, M200.1000 ####[facility] [address] [place], [address] Comprehensive metabolic 1998 panelon 08-23-2024 Albumin [Mass/Vol] 3.3 g/dL Low 3.5 - 5.0 g/dL [facility] ALP [Catalytic activity/Vol] 85 U/L 40 - 150 U/L [facility] ALT [Catalytic activity/Vol] 10 U/L [facility] - 40 U/L [facility] Anion gap [Moles/Vol] 15 mmol/L High 3 - 13 mmol/L [facility] AST [Catalytic activity/Vol] 22 U/L [facility] - 34 U/L [facility] Bilirubin [Mass/Vol] 0.5 mg/dL [facility] - 1.2 mg/dL [facility] Calcium [Mass/Vol] 8.8 mg/dL 8.4 - 10. 2 mg/dL [facility] Chloride [Moles/Vol] 99 mmol/L 98 - 10 7 mmol/L [facility] CO2 [Moles/Vol] 20 mmol/L Low 22 - 29 mmol/L [facility] Creatinine [Mass/Vol] 9.57 mg/dL High 0.72 - 1.25 mg/dL [facility] GFR/1.73 sq M.predicted (S/P/Bld) [Vol rate/Area] 6.4 mL/min Low - PINF [facility] Comment on above: Calculation based on the Chronic Kidney Disease Epidemiology Collaboration (CKD-EPI) equation refit without adjustment for race Glucose [Mass/Vol] 224 mg/dL High 74 - 100 mg/dL [facility] Potassium [Moles/Vol] 4.4 mmol/L 3.5 - 5.1 mmol/L [facility] Comment on above: Plasma potassium willie ues may be up to 0.5 mmol/L lower than serum values. Protein [Mass/Vol] 6.4 g/dL 6.4 - 8.3 g/dL [facility] Sodium [Moles/Vol] 134 mmol/L Low 136 - 145 mmol/L [facility] Urea nitrogen [Mass/Vol] 59 mg/dL High 8 - 21 mg/d L [facility] Consulton 08-23-2024 Consult [facility] [place] [address] [place] [address] Consult Note Patient's Name: Farrah Gonzales 2:37 PM 08/23/2024 Reason for Consult: esrd ATTENDING/ADMITTING PHYSICIAN:Maria Luz Trujillo MD Assessment: 44 y.o. male with PMH of diabetes, hypertension, end-stage renal disease admitted to the hospital with sepsis. Nephrology is consulted for management of end-stage renal disease 1. End-stage renal disease on hemodialysis Friday - Last dialysis treatment on Friday 2. Volume - Patient looks euvolemic still makes urine 3. Electrolytes: - Mild hyponatremia of 134 mmol/L potassium is stable 4. Acid/base: - Serum bicarb of 20 5. MBD: - Calcium to 8.8 no phosphorus 6. Anemia: - Hemoglobin is at goal at 10.4 7. Medications: - Reviewed 8. Access: - AV fistula Plan: - Will resume his dialysis today Friday schedule - Antibiotics ongoing workup for infection per primary team Thank you for allowing me to participate in care of Farrah Gonzales. Please do not hesitate to contact me at [phone] with any concerns. Osmel Andrade MD 2:37 PM 08/23/2024 Chief Complaint: fever History Obtained From: patient and chart review History of Present Ilness: Farrah Gonzales is a 44 y.o. male with underlying history below who is currently being admitted to the hospital of workup for sepsis. Nephrology is consulted for management of end-stage renal disease Patient [facility] [place] [facility] [place] Friday. His last dialysis treatment was on Friday He dialyzes via a left radial AV fistula. Patient states that he woke up on Friday feeling feverish took his temperature noted to be 103 He is currently maintained on broad-spectrum antibiotics with ongoing workup for sepsis. Patient states that he still makes urine Medical History[1] Surgical History[2] Family History[3] reports that he has never smoked. He has never used smokeless tobacco. He reports that he does not drink alcohol and does not use drugs. Allergies: Patient has no known allergies. Current Medications: Current Medications[4] Review of Systems: 10 ROS negative other than stated above Vitals: BP 156/82 (BP Location: Right arm, Patient Position: Lying) Pulse 108 Temp 36.4 ?C (97.5 ?F) (Temporal) Resp 20 Ht 1.803 m (5' 11) Wt 88.5 kg (195 lb) SpO2 100% BMI 27.20 kg/m? BLOOD PRESSURE RANGE: Systolic (24hrs), Av , Min:156 , Max:156 ; Diastolic (24hrs), Av, Min:82, Max:82 Physical exam: Pleasant alert and responsive answers questions appropriately in no acute distress Normocephalic atraumatic [place] slightly dry Neck is supple S1-S2 regular Breath sounds are equal bilaterally Abdomen is nontender No significant peripheral edema Left AV fistula good thrill and bruit Labs: Recent Labs 08/23/24 1300 WBC 20.3* HGB 10.4* HCT 29.5* MCV 88.3 PLT 177 Recent Labs 08/23/24 1300 NA 134* K 4.4 CL 99 CO2 20* GLUCOSE 224* BUN 59* CREATININE 9.57* Ionized Calcium: No components found for: IONCA Magnesium: No results found for: MG Phosphorus: No results found for: PHOS Uric Acid: No results found for: URICACID PT/INR: No results found for: PROTIME, INR Microalbumen/Creatin ine ratio: No components found for: RUCREAT IRON: No results found for: IRON Iron Saturation: No components found for: LABIRON TIBC: No results found for: TIBC FERRITIN: No results found for: FERRITIN Input / Output: 24 HR: No intake or output data in the 24 hours ending 08/23/24 1437 IV Intake: Chery: Imaging: CT reviewed [1] Past Medical History: Diagnosis Date End stage renal failure on dialysis (HCC) Hypertension Type 1 diabetes mellitus (HCC) [2] History reviewed. No pertinent surgical history. [3] No family history on file. [4] Current Facility-Administere d Medications Medication Dose Route Frequency Provider Last Rate Last Admin acetaminophen (Tylenol) tablet 1,000 mg 1,000 mg Oral TID Brayan Luz Marina, DO 1,000 mg at 08/23/24 1318 [Held by provider] amLODIPine (Norvasc) tablet 10 mg 10 mg Oral Daily Brayan Luz Marina, DO dextrose 5 % infusion 100 mL/hr IntraVENous PRN Brayan Luz Marina, DO dextrose 50 % solution 12.5 g 12.5 g IntraVENous PRN Brayan Luz Marina, DO glucagon (human recombinant) injection 1 mg 1 mg IntraMUSCular PRN Brayan Luz Marina, DO glucose oral gel 15 g 15 g Oral PRN Brayan Luz Marina, DO heparin injection 5,000 Units 5,000 Units SubCUTAneous 3 times per day Brayan Barros DO 5,000 Units at 08/23/24 1410 Insulin Pump - (Patient Supplied) SubCUTAneous Continuous Akbar Ahmet-Pantale (more content not included)... [facility] Consult Pharmacy Managed Vancomycin Dosing Service Consult Note Consult Date: 08/23/24 Patient Name: Farrah Gonzales Allergies: Patient has no known allergies. Age: 44 y.o. Sex: male Estimated body mass index is 27.2 kg/m? as calculated from the following: Height as of this encounter: 1.803 m (5' 11). Weight as of this encounter: 88.5 kg (195 lb). DW: 88.5 kg Lab Results Component Value Date CREATININE 9.57 (H) 08/23/2024 BUN 59 (H) 08/23/2024 WBC 20.3 (H) 08/23/2024 Renal: [x]HD []CRRT []PD [] CrCl ml/min (Cockcroft-Gault, if ANN, no CHOREOGRAPHY DIRECTOR) Consulted By: Brayan Barros Vancomycin Level: []Trough [x]Random --> date/time future collection 4 hours post-HD, next HD currently not scheduled Infectious Diagnosis: Sepsis (target level = 15-20 mg/L) Antimicrobials: Patient recently received an antibiotic (last 12 hours) None Assessment/Plan: Intermittent vancomycin dosing (Pulse Dosing). Give Vancomycin 1750 mg x1 based on patient age, weight, renal status and infectious diagnosis (19.7 mg/kg). Will adjust dose/frequency if needed according to level. Follow renal status closely. Orders placed. Thank you for this consult. Please page/call with questions. Date: 08/23/24 Time: 1:53 PM Den GomesD (available on [employer]) [facility] Consult Department of Internal Medicine Division of Endocrinology, Diabetes, & Metabolism Endocrinology Note Patient Name: Farrah Gonzales : 1980 AGE: 44 y.o. Room/Bed: [facility]/[address] Admission Date: 08/23/2024 Visit Date: 08/23/2024 Reason for Endocrine Consult: Type 1 diabetes mellitus on insulin pump. Provider/Team Requesting Consult: Brayan Barros PCP: Kristal Sullivan MD Outpt Track Announcer: Yes . Jace Ko MD at outside endocrinology practice. ASSESSMENT: #1. Type 1 diabetes mellitus on insulin pump. #2. End-stage renal disease on hemodialysis with a permacath access. #3. Admitted with sepsis to determine etiology. PLAN: #1. Continue with insulin pump for now, patient does not have insulin pump supplies, so prior to August 25 need needs to be switched to basal bolus therapy. Consent signed. #2. Nurse to document blood glucose values on medical record AC and at bedtime, can take CGM data as source. #3. Check A1c ICU goal <180 GMF goal <150 POCT BG ACHS Hypoglycemia management per protocol Carb controlled diet ANTICIPATED ENDOCRINE HOME GOING RECOMMENDATIONS: Optimized for Discharge from Endocrine standpoint: No Home Going Endocrine Rx Recommendations-- On insulin pump. 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 SUBJECTIVE/HPI: CHIEF COMPLAINT: No chief complaint on file. Farrah is a 44-year-old white male who was admitted with sepsis, to determine etiology. He has a history of type 1 diabetes mellitus since age 18. He has been on an OmniPod for the last 3 years, with a [employer] G6 CGM. He uses auto mode on his pump. Insulin pump settings as follows: Basal rate 1.2 units/h Carb ratio 1 unit for every 50 g Insulin sensitivity factor I unit for every 50 above 110. Insulin active time 2.5 hours Insulin type NovoLog Total daily dose the last 3 days between 40 to 60 units. 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 He has been on hemodialysis since December 2023. Denies history of diabetic retinopathy or neuropathy. Denies history of thyroid disorder. Type of DM: 1 Onset of DM: Age 18 Home DM Medication Regimen: As above DM control (last A1c/glucose data): No results found for: HGBA1C No results found for: POCGLU Review of Systems ROS negative except for those mentioned in HPI. OBJECTIVE: Vitals: 08/23/24 1031 BP: 156/82 BP Location: Right arm Patient Position: Lying Pulse: 108 Resp: 20 Temp: 36.4 ?C (97.5 ?F) TempSrc: Temporal SpO2: 100% Weight: 195 lb (88.5 kg) Height: 5' 11 (1.803 m) Physical Exam Vitals reviewed. Constitutional: Appearance: He is ill-appearing. HENT: Mouth/Throat: Mouth: Mucous membranes are moist. Cardiovascular: Rate and Rhythm: Normal rate and regular rhythm. Pulmonary: Effort: Pulmonary effort is normal. Breath sounds: Normal breath sounds. Abdominal: General: Abdomen is flat. Bowel sounds are normal. Palpations: Abdomen is soft. Musculoskeletal: Cervical back: Neck supple. Right lower leg: No edema. Left lower leg: No edema. Skin: General: Skin is warm. Comments: Permacath R chest Neurological: General: No focal deficit present. Mental Status: He is alert and oriented to person, place, and time. Psychiatric: Mood and Affect: Mood normal. Behavior: Behavior normal. 24 hour intake/output:No intake or output data in the 24 hours ending 08/23/24 1249 Diet: Adult diet Regular; Low Sodium (2 gm); Low Potassium (Less than 3000 mg/day) Medications (as per EMR): HomeMeds: No current outpatient medications Scheduled Meds:Scheduled Meds[1] Continuous Infusions:Continuous Meds[2] PRN Meds:PRN Meds[3] Diagnostic Workup: I reviewed pertinent Laboratory results, Radiographic results, and Other Clinical Notes at the time of today's encounter. Labs: No components found for: LABA1C No components found for: EAG No results found for: NA, K, CL, CO2, BUN, CREATININE, GLUCOSE, CALCIUM No results found for: CHLPL, CHOL No results found for: TRIG No results found for: HDL No results found for: LDLCALC No results found for: VLDL No results found for: CHOLHDLRATIO No results found for: [id number] No results found for: TSH, B6LYZDJ, A7YHIID, THYROIDAB Radiology reportsas per the Radiologist Radiology: ECG 12 lead Result Date: 08/23/2024 Sinus tachycardia Consider anterior infarct Nonspecific T abnormalities, lateral leads History/Other: Past Medical History: Medical History[4] Past Surgical History: Surgical History[5] Allergy(ies): Allergies[6] Family History: Family History[7] Social History: Social History[8] Portions of the information within this encounter were entered using an electronic dictation system. Best attempts were made to edit/proofread the information prior to note completion. Despite the review of information, some errors may re (more content not included)... Normal [facility] ESR (Bld) [Velocity]Ordered By: Suha Crow on 08-23-2024 Interpretation and review of laboratory results Abnormal [facility] Emergency Department Summary on 08-23-2024 Emergency Department Summary Normal [facility] Eosinophil percentageOrdered By: Laurie Elizalde on 08-23-2024 Eosinophils/100 WBC (Bld) 0.0 % 0-5 [facility] Erythrocyte distribution wid th ratioOrdered By: Laurie Elizalde on 08-23-2024 Erythrocyte distribution width (RBC) [Ratio] 12.6 % 11.6-14.6 [facility] Erythrocyte distribution wid th standard deviationOrdered By: Laurie Elizalde on 08-23-2024 Erythrocyte distribution width (RBC) [Ratio] 39.8 fl 35.1-43.9 [facility] Glomerular filtration rate ( GFR) estimation/1.73 sq m using serum, plasma, or whole bOrdered By: Laurie Elizalde on 08-23-2024 GFR/1.73 sq M.predicted among non-blacks MDRD (S/P/Bld) [Vol rate/Area] 7 mL/min/{1.73_m2} Low >60 [facility] Comment on above: mL/min/1.73m2 CKD-EP I Creatinine Equation (2020) HIGH SENSITIVITY TROPONIN, S ERIAL BASELINEon 08-23-2024 TROPONIN HS SERIAL BASELINE 59 ng/L High <=35 [facility] Comment on above: Result Comment: In i ndividuals presenting with symptoms > 2h, a baseline troponin <= 5 ng/L suggests acute cardiac injury is unlikely and further serial testing is generally not indicated. Performed By: #### L [id number] #### Facilities Operator: RORO LUNDBERG ([phone]) [facility] [address] [place] [address] HIGH SENSITIVITY TROPONIN, S ERIAL, SECOND TESTon 08-23-2024 2H TROPONIN HS (SERIAL 2ND TROPONIN) 57 ng/L High <=35 [facility] Comment on above: Result Comment: Risi ng or falling troponin delta below 2 ng/L as compared to baseline value suggests that acute cardiac injury is unlikely. Performed By: #### L [id number] #### Facilities Operator: RORO LUNDBERG ([phone]) [facility] ([facility]) [address] [place] [address] HIGH SENSITIVITY TROPONIN, S ERIAL, THIRD TESTon 08-23-2024 4H TROPONIN HS (SERIAL 3RD TROPONIN) 50 ng/L High <=35 [facility] Comment on above: Result Comment: 4h t roponin (3rd troponin) samples collected between 1h 40 min and 2h and 20 min of the 2h troponin collection time can be utilized to interpret delta troponins as per [facility] algorithms. Samples collected outside this timeframe need to be interpreted clinically. Rising or falling troponin delta between 2 ??? 15 ng/L as compared to 2h troponin value requires further evaluation. Performed By: #### L [id number] ####Facilities Operator: RORO LUNDBERG ([phone])[facility] ([facility])[address] [place] [address] Hematocrit Auto (Bld) [Volum e fraction]Ordered By: Laurie Elizalde on 08-23-2024 Hematocrit (Bld) [Volume fraction] 33.5 % Low 40-54 [facility] Hemoglobin measurementOrdere d By: Laurie Elizalde on 08-23-2024 Hemoglobin (Bld) [Mass/Vol] 11.9 g/dL Low 13.0-16. 5 [facility] Immature granulocytes/100 WB C Auto (Bld)Ordered By: Laurie Elizalde on 08-23-2024 Immature granulocytes/100 WBC (Bld) 1.500 % High 0.0-0.9 [facility] Comment on above: IG% - Immature Granu locytes (promyelocytes, myelocytes and metamyelocytes) > 1% indicates that a LEFT SHIFT is Present. Influenza virus A and B and SARS-CoV-2 (COVID-19) and Respiratory syncytial virus RNAOrdered By: Laurie Elizalde on 08-23-2024 SARS-CoV-2 (COVID-19) RNA LAVERN+probe Ql (Unsp spec) [facility] International normalized rat io (INR) calculationOrdered By: Laurie Elizalde on 08-23-2024 INR Coag (Bld) [Relative time] 1.1 {INR} [facility] Ketones Test strip Ql (U)Ord ered By: Laurie Elizalde on 08-23-2024 Ketones Ql (U) Negative Negative [facility] LACTIC ACID WITH REFLEXon Lactate [Moles/Vol] 1.5 mmol/L Normal 0.5-2.2 [facility] Comment on above: Performed By: #### L [id number] #### Facilities Operator: RORO LUNDBERG ([phone]) [facility] ([facility]) [address] [place] [address] Laboratory - Chemistry and C hemistry - challengeon 08-23-2024 Procalcitonin [Mass/Vol] 5.94 ng/mL High JOE F - 0.07 ng/mL [facility] TSH Qn 2.48 m[IU]/L [facility] CK [Catalytic activity/Vol] 90 U/L 30 - 185 U/L [facility] CRP [Mass/Vol] 282.2 mg/L High NINF - 5.0 mg/L [facility] Lactate [Moles/Vol] 1.5 mmol/L 0.5 - 2. 2 mmol/L [facility] Laboratory - Chemistry and C hemistry - challengeOrdered By: Laurie Elizalde on 08-23-2024 AST [Catalytic activity/Vol] 17 U/L <38 [facility] Laboratory - Hematology and Cell countson 08-23-2024 Band form neutrophils (Bld) [#/Vol] 2 10*3/uL High NINF - 0.0 10*3/uL [facility] Band form neutrophils/100 WBC (Bld) 10 % High NINF - 0 % [facility] Lymphocytes (Bld) [#/Vol] 0.8 10*3/uL Low 1. 0 - 4.3 10*3/uL [facility] Lymphocytes/100 WBC (Bld) 4 % Low 15 - 45 % [facility] Monocytes (Bld) [#/Vol] 0.6 10*3/uL 0.0 - 0.9 10*3/uL [facility] Monocytes/100 WBC (Bld) 3 % Low 5 - 13 % [facility] Neutrophils (Bld) [#/Vol] 18.9 10*3/uL High 1. 8 - 7.5 10*3/uL [facility] Ovalocytes LM Ql (Bld) Slight Abnormal (none) [facility] Poikilocytosis LM Ql (Bld) Slight Abnormal (none) [facility] RBC morphology finding Nom (Bld) abnormal [facility] Segmented neutrophils/100 WBC (Bld) 83 % High 38 - 82 % [facility] Laboratory - Hematology and Cell countsOrdered By: Suha Crow on 08-23-2024 ESR (Bld) [Velocity] 30 mm/h High [facility] Lactic Acidon 08-23-2024 Lactate [Moles/Vol] 1.1 mmol/L Normal 0.0-2.0 [facility] Comment on above: Performed By: #### L [id number] ####[facility] [address] [place], [place], [id number] Lactate [Moles/Vol] 2.5 mmol/L Invalid Interpretation Code 0.0-2.0 [facility] Comment on above: Order Comment: Y Result Comment: Crit ical Result(s) Called at: 0139 by:??MONET CHILDS Results read back by same. Performed By: #### M 100.636, L300.3900, L500.4050, L300.4310, L503.6005, L100.0100, M200.1000 ####[facility] [address] [place], [place], [phone] Lactic acid measurementOrder ed By: Laurie Elizalde on 08-23-2024 Lactate [Moles/Vol] 1.1 mmol/L 0.0-2.0 [facility] M100.678on 08-23-2024 M100.678 SARS-CoV-2 (COVID 19) Negative INFLUENZA A Negative INFLUENZA B Negative RSV PCR Negative Normal [facility] Comment on above: Performed By: #### M 100.678, L400.0001, M100.2200 ####[facility] [address] [place], [address] MANUAL DIFFERENTIAL (CELLAVI RODERICK)on 08-23-2024 BAND NEUTROPHILS TOTAL PER COUNTED LEUKOCYTES BY MANUAL COUNT 11 Normal [facility] Comment on above: Performed By: #### L [id number] #### Facilities Operator: RORO LUNDBERG ([phone]) [facility] ([facility]) [address] [place] [address] [place] BANDS (10*3/UL) IN BLOOD-CELLAVISION 2.0 10*3/uL High <=0.0 [facility] Comment on above: Performed By: #### L [id number] #### Facilities Operator: RORO LUNDBERG ([phone]) [facility] ([facility]) [address] [place] [address] [place] BASOPHILS TOTAL PER COUNTED LEUKOCYTES BY MANUAL COUNT Normal [facility] Comment on above: Performed By: #### L [id number] #### Facilities Operator: RORO LUNDBERG ([phone]) [facility]) [address] [place] [address] [place] BLASTS TOTAL PER COUNTED LEUKOCYTES BY MANUAL COUNT [facility] Comment on above: Performed By: #### L [id number] #### Facilities Operator: RORO LUNDBERG ([phone]) [facility]) [address] [place] [address] [place] EOSINOPHILS TOTAL PER COUNTED LEUKOCYTES BY MANUAL COUNT Normal [facility] Comment on above: Performed By: #### L [id number] #### Facilities Operator: RORO LUNDBERG ([phone]) [facility]) [address] [place] [address] [place] LYMPHOCYTES (10*3/UL) IN BLOOD-CELLAVISION 0.8 10*3/uL Low 1.0-4.3 [facility] Comment on above: Performed By: #### L [id number] #### Facilities Operator: RORO LUNDBERG ([phone]) [facility]) [address] [place] [address] [place] LYMPHOCYTES TOTAL PER COUNTED LEUKOCYTES BY MANUAL COUNT 4 Normal [facility] Comment on above: Performed By: #### L [id number] #### Facilities Operator: RORO LUNDBERG ([phone]) [facility] ([facility]) [address] [place] [address] [place] LYMPHOCYTES/100 LEUKOCYTES IN BLOOD-CELLAVISION 4 % Low 15-45 [facility] Comment on above: Performed By: #### L [id number] #### Facilities Operator: RORO LUNDBERG ([phone]) [facility] [address] [place] [address] [place] METAMYELOCYTES TOTAL PER COUNTED LEUKOCYTES BY MANUAL COUNT Normal [facility] Comment on above: Performed By: #### L [id number] #### Facilities Operator: RORO LUNDBERG ([phone]) [facility]) [address] [place] [address] [place] MONOCYTES (10*3/UL) IN BLOOD-CELLAVISION 0.6 10*3/uL Normal 0.0-0.9 [facility] Comment on above: Performed By: #### L [id number] #### Facilities Operator: RORO LUNDBERG ([phone]) [facility] [address] [place] [address] [place] MONOCYTES TOTAL PER COUNTED LEUKOCYTES BY MANUAL COUNT 3 Normal [facility] Comment on above: Performed By: #### L [id number] #### Facilities Operator: RORO LUNDBERG ([phone]) [facility] [address] [place] [address] [place] MONOCYTES/100 LEUKOCYTES IN BLOOD-NIRANJAN 3 % Low 5-13 [facility] Comment on above: Performed By: #### L [id number] #### Facilities Operator: RORO LUNDBERG ([phone]) [facility]) [address] [place] [address] [place] MYELOCYTES COUNTED BY MANUAL COUNT Normal [facility] Comment on above: Performed By: #### L [id number] #### Facilities Operator: RORO LUNDBERG ([phone]) [facility] [address] [place] [address] [place] NEUTROPHILS BAND FORM/100 LEUKOCYTES IN BLOOD-CELLAVISI 10 % High <=0 [facility] Comment on above: Performed By: #### L [id number] #### Facilities Operator: RORO LUNDBERG ([phone]) [facility]) [address] [place] [address] [place] NEUTROPHILS TOTAL PER COUNTED LEUKOCYTES BY MANUAL COUNT 88 Normal [facility] Comment on above: Performed By: #### L [id number] #### Facilities Operator: RORO LUNDBERG ([phone]) [facility] [address] [place] [address] [place] OVALOCYTES PRESENCE IN BLOOD BY LIGHT MICROSCOPY Slight Abnormal (none) [facility] Comment on above: Performed By: #### L [id number] #### Facilities Operator: RORO LUNDBERG ([phone]) [facility]) [address] [place] [address] POIKILOCYTOSIS (PRESENCE) IN BLOOD BY LIGHT MICROSCOPY Slight Abnormal (none) [facility] Comment on above: Performed By: #### L [id number] #### Facilities Operator: RORO LUNDBERG ([phone]) [facility] [address] [place] [address] [place] PROMYELOCYTES TOTAL PER COUNTED LEUKOCYTES BY MANUAL COUNT Normal [facility] Comment on above: Performed By: #### L [id number] #### Facilities Operator: RORO LUNDBERG ([phone]) [facility]) [address] [place] [address] RBC MORPHOLOGY IN BLOOD abnormal Normal [facility] Comment on above: Performed By: #### L [id number] #### Facilities Operator: RORO LUNDBERG ([phone]) [facility] [address] [place] [address] [place] SEGMENTED NEUTROPHILS (10*3/UL) IN BLOOD-CELLAVISION 18.9 10*3/uL High 1.8-7.5 [facility] Comment on above: Performed By: #### L [id number] #### Facilities Operator: RORO LUNDBERG ([phone]) [facility] [address] [place] [address] [place] SEGMENTED NEUTROPHILS/100 LEUKOCYTES-CE 83 % High 38-82 [facility] Comment on above: Performed By: #### L [id number] #### Facilities Operator: RORO LUNDBERG ([phone]) [facility]) [address] [place] [address] UNCLASSIFIED CELLS TOTAL PER COUNTED LEUKOCYTES BY MANUAL COUNT Normal [facility] Comment on above: Performed By: #### L [id number] #### Facilities Operator: RORO LUNDBERG ([phone]) [facility]) [address] [place] [address] VARIANT LYMPHOCYTES TOTAL PER COUNTED LEUKOCYTES BY MANUAL COUNT Normal [facility] Comment on above: Performed By: #### L [id number] #### Facilities Operator: RORO LUNDBERG ([phone]) [facility]) [address] [place] [address] MCV (mean corpuscular volume ) determinationOrdered By: Laurie Elizalde on 08-23-2024 MCV (RBC) [Entitic vol] 87.5 fL 80-94 [facility] Magnesiumon 08-23-2024 Magnesium [Mass/Vol] 1.7 mg/dL Normal 1.5-2.2 [facility] Comment on above: Performed By: #### L 501.2300, L501.5200 ####[facility] [address] [place], [address] Magnesium measurement (mass/ volume)Ordered By: Laurie Elizalde on 08-23-2024 Magnesium (Unsp spec) [Mass/Vol] 1.7 mg/dL 1.5-2.2 [facility] Mean corpuscular hemoglobin (MCH) determinationOrdered By: Laurie Elizalde on 08-23-2024 MCH (RBC) [Entitic mass] 31.1 pg 27.0-32.0 [facility] Mean corpuscular hemoglobin concentration (MCHC) determinationOrdered By: Laurie Elizalde on 08-23-2024 MCHC (RBC) [Mass/Vol] 35.5 g/dL 32-36 [facility] Mean platelet volume determi nationOrdered By: Laurie Elizalde on 08-23-2024 Platelet mean volume (Bld) [Entitic vol] 9.1 fL 6.2-12.0 [facility] Microscopic analysis of urin e for red blood cells (RBC)Ordered By: Laurie Elizalde on 08-23-2024 Microscopic analysis of urine for red blood cells (RBC) 0 SEEN /hpf 0-5 [facility] Monocyte percentageOrdered B y: Laurie Elizalde on 08-23-2024 Monocytes/100 WBC (Bld) 3.2 % 0-10 [facility] Mucus LM Ql (Urine sed)Order ed By: Laurie Elizalde on 08-23-2024 Mucus Ql (Urine sed) 0 SEEN /hpf [facility] NT PRO BNPon 08-23-2024 Natriuretic peptide B (Bld) [Mass/Vol] 22978 pg/mL High <125 [facility] Comment on above: Performed By: #### L [id number] #### Facilities Operator: RORO LUNDBERG ([phone]) [facility] ([facility] Natriuretic peptide B [Mass/ Vol]on 08-23-2024 Interpretation and review of laboratory results Abnormal [facility] Natriuretic peptide B (Bld) [Mass/Vol] 92357 pg/mL High NINF - 125 pg/mL [facility] Neutrophil percentageOrdered By: Laurie Elizalde on 08-23-2024 Neutrophils/100 WBC (Bld) 93.6 % High 47-70 [facility] Nitrite Test strip Ql (U)Ord ered By: Laurie Elizalde on 08-23-2024 Nitrite Ql (U) Negative Negative [facility] No Panel Informationon 08-23 4h Troponin HS (Serial 3rd Troponin) 50 ng/L High NINF - 35 ng/L [facility] Comment on above: 4h troponin (3rd tro ponin) samples collected between 1h 40 min and 2h and 20 min of the 2h troponin collection time can be utilized to interpret delta troponins as per [facility] algorithms. Samples collected outside this timeframe need to be interpreted clinically. Rising or falling troponin delta between 2 15 ng/L as compared to 2h troponin value requires further evaluation. Interpretation and review of laboratory results Abnormal [facility] 2h Troponin HS (Serial 2nd Troponin) 57 ng/L High NINF - 35 ng/L [facility] Comment on above: Rising or falling tr oponin delta below 2 ng/L as compared to baseline value suggests that acute cardiac injury is unlikely. Interpretation and review of laboratory results Abnormal [facility] Atypical Lymphocytes Manual [facility] Health Bands Manual 11 [facility] Health Basophils Manual [facility] Blasts Manual [facility] Eosinophils Manual [facility] Interpretation and review of laboratory results Abnormal [facility] Lymphocytes Manual 4 [facility] Metamyelocytes Manual [facility] Monocytes Manual 3 [facility] Myelocytes Manual [facility] Neutrophils Manual 88 [facility] Promyelocytes Manual [facility] Unclassified Cells, Manual [facility] Interpretation and review of laboratory results Abnormal [facility] Troponin HS Serial Baseline 59 ng/L High NINF - 35 ng/L [facility] Comment on above: In individuals prese nting with symptoms > 2h, a baseline troponin <= 5 ng/L suggests acute cardiac injury is unlikely and further serial testing is generally not indicated. [facility] Interpretation and review of laboratory results Abnormal [facility] Interpretation and review of laboratory results Normal [facility] Nucleated red blood cell per centageOrdered By: Laurie Elizalde on 08-23-2024 Nucleated RBC/100 WBC (Bld) [Ratio] 0 % 0-5 [facility] Nursing Noteon 08-23-2024 Nursing Note Pt.'s insulin pump reading glucose 180 Normal [facility] Nursing Note Patient Name: Farrah Gonzales Patient : 1980 Acct: [id number] Date of Admission: 08/23/2024 Room[facility]Bed: [facility] A Code Status: Full Code Allergies: Allergies[1] Diagnosis: Problem List[2] Treatment: Hemodialysis 1:1 Priority: Routine Location: Med/Surg/Tele Diabetic: Yes NPO: No Isolation Precautions: Droplet plus Consent for Treatment Verified: Yes Blood Consent Verified: Not Applicable ICEBOAT: Identify, Consent, Equipment, HepB Status, Orders Complete, Access Verified, Timeliness (O2 and suction setup at bedside) Second Clinician Verifying: Gonzales Thrasher RN Time out performed prior to access at 2009. Report Received from Primary RN at 1931. Primary RN (First Initial, Last Name, Title): Manjit Rolon RN Incapacitated Nurse Education Completed: Yes(Gonzales Thrasher RN) HBsAg ONLY: Date Drawn: August 09, 2024 Results: Negative HBsAb: Date Drawn: August 09, 2024 Results: Susceptible <10 Order Dialyzer: Nipro Na+ Modeling: Not Applicable Dialysate Temperature (C): 36 Blood Flow Rate (BFR): 400 Dialysate Flow Rate (DFR): 600 Access to be Utilized Access: Tunneled Catheter Location: Subclavian Side: Right Needle gauge: Not Applicable + Bruit/Thrill: Not Applicable First Use X-ray Verified: Present on admission OK to use line order: Yes Site Assessment: Signs and Symptoms of Infection/Inflammati on: None If yes: Not Applicable Dressing: Dry and Intact Site Prep: Medical Aseptic Technique Dressing Changed this Treatment: Yes If yes, by whom: Pierre JERONIMO Date of Last Dressing Change: August 20, [address]?: No Red Alcohol Caps in place?: Yes Gauze Dressing?: Yes Non-Dialysis Use?: Yes Comment: Flows: Lines Reversed, Good, and Patent If access problem, who was notified: Pre and Post-Assessment Patient Vitals for the past 8 hrs: Level of Consciousness Oriented X Heart Rhythm Respiratory Pattern O2 Device Skin Color Skin Condition/Temp Abdomen Inspection Bowel Sounds (All Quadrants) RUE Edema LUE Edema RLE Edema LLE Edema Pre-Hemodialysis Comments Pain Interventions 08/23/241944 -- -- -- -- -- -- -- -- -- -- -- -- -- -- Repositioned 08/23/242015 Alert (0) 4 Other (Comment) -- None (Room air) [place] Warm;Dry -- -- None None None None Incapacitated RN and Pt education done Medication (See MAR) 08/23/242357 Alert (0) 4 Other (Comment) Other (Comment) None (Room air) [place] Warm;Dry Soft Active None None None None -- -- Labs Lab Results Component Value Date/Time WBC 20.3 (H) 08/23/2024 1300 HGB 10.4 (L) 08/23/2024 1300 HCT 29.5 (L) 08/23/2024 1300 PLT 177 08/23/2024 1300 NA 134 (L) 08/23/2024 1300 K 4.4 08/23/2024 1300 CL 99 08/23/2024 1300 CO2 20 (L) 08/23/2024 1300 BUN 59 (H) 08/23/2024 1300 CREATININE 9.57 (H) 08/23/2024 1300 CALCIUM 8.8 08/23/2024 1300 IV Drips and Rate/Dose Continuous Meds[3] Safety - Before each treatment: Dialysis Machine No.: [id number] RO Machine Number: [id number] Dialyzer Lot No.: [id number] Tubing Lot Number: [id number] All Connections Secure: Yes Venous Parameters Set: Yes Arterial Parameters Set: Yes NS Bag: Yes Saline Line Double Clamped: Yes Dialyzer: Nipro Prime Volume (mL): 200 mL RO Machine Number: [id number] RO Machine Log Sheet Completed: Yes Machine Alarm Self Test: Completed, Passed (At 2016) (08/23/242015) Air Foam Detector: Tested, Proper Function, pH Reading Extracorporeal Circuit Tested for Integrity: Yes Machine Conductivity: 13.8 Manual Conductivity: 13.6 Manual Ph: 7.2 Bleach Test (Neg): Yes Bath Temperature: 36 ?C (96.8 ?F) Conductivity Meter Serial #: [id number] Machine Functioning Alarm Free? Yes Dialysis Bath: K+ (Potassium): 3 Ca+ (Calcium): 2.5 Na+ (Sodium): 137 HCO3 (Bicarb): 32 Bicarbonate Concentrate Lot No.: [id number] Acid Concentrate Lot No.: [id number] Chlorine Testing - Before each treatment and every 4 hours: Time On: 2024 Time Off: 2324 Treatment Goal: 1L Weight Height: 180.3 cm (5' 11) (08/23/241030) Weight: 88.5 kg (195 lb) (08/23/241030) BMI (Calculated): 27.21 (08/23/241030) 1st check: less than 0.1 ppm at: 2000 2nd check: less than 0.1 ppm at: 0 3rd check: Not Applicable (if greater than 0.1 ppm, then check every 30 minutes from secondary) Access Flows and Pressures Patient Vitals for the past 8 hrs: Blood Flow Rate (mL/min) Ultrafiltration Rate (ml/hr) Arterial Pressure (mmHg) Venous Pressure (mmHg) TMP DFR Access Visible Intra-Hemodialysis Comments 08/23/242024 200 mL/min 570 ml/hr -70 mmHg 40 mmHg 80 600 Yes Tx initiated, lines secured 08/23/242029 400 mL/min 570 ml/hr -160 mmHg 130 mmHg 60 600 Yes BFR increased, UF 57mL 08/23/242044 400 mL/min 570 ml/hr -160 mmHg 140 mmHg 60 600 Yes Pt tolerating tx, UF 204mL 08/23/242099 400 mL/min 570 ml/hr -160 mmHg 140 mmHg 70 600 Yes No adverse reaction observed, UF 332mL 08/23/24 211 400 mL/min 570 ml/hr -160 mmHg 140 mmH (more content not included)... Normal [facility] Nursing Note Fistula to Lfa/wrist is warm to touch, secure messaging to primary Normal [facility] Nursing Note Blood sugar per patients omni pod 176 Normal [facility] Organism identificationOrder ed By: Laurie Elizalde on 08-23-2024 Microorganism identified Cx Nom (Unsp spec) Staphylococcus aureus Abnormal [facility] PROCALCITONIN TESTon 025 PROCALCITONIN 5.94 ng/mL High <0.07 [facility] Comment on above: Result Comment: ORDE R COMMENTS: PCT <0.50 = Low risk of severe sepsis and/or septic shock. PCT >2.00 = High risk of severe sepsis and/or septic shock. Performed By: #### L [id number] #### Facilities Operator: RORO LUNDBERG ([phone]) [facility] ([facility] Partial Thromboplast Timeon 08-23-2024 aPTT Coag (Bld) [Time] 28.3 s Normal 24.1-36.[address] [facility] Comment on above: Performed By: #### M 100.636, L300.3900, L500.4050, L300.4310, L503.6005, L100.0100, M200.1000 ####[facility] [address] [place], [address] Phosphoruson 08-23-2024 Phosphate [Mass/Vol] 1.2 mg/dL Invalid Interpretation Code 2.7-4.5 [facility] Comment on above: Performed By: #### L 501.2300, L501.5200 ####[facility] [address] [place], [address] Platelet countOrdered By: Tito Elizalde on 08-23-2024 Platelets (Bld) [#/Vol] 250 10*3/uL 150-450 [facility] Potassium measurement (mass/ volume)Ordered By: Laurie Elizalde on 08-23-2024 Potassium (Unsp spec) [Mass/Vol] 3.6 mmol/L 3.3-5.1 [facility] Procalcitonin [Mass/Vol]on 0 08-23-2024 Interpretation and review of laboratory results Abnormal [facility] PCT <0.50 = Low risk of severe sepsis and/or septic shock. PCT >2.00 = High risk of severe sepsis and/or septic shock. [facility] Progress Noteon 08-23-2024 Progress Note Brief Overnight Note Received page from RN at 21:29 PM: Hi this pt. is requesting something for pain. He is having muscle soreness in his calves and R shoulder. A lidocaine patch was placed on his shoulder earlier but he is saying it isn't doing anything. He got tylenol earlier with his HS meds, but cain if a muscle relaxer or something for pain would be better? Went to bedside to evaluate patient. Patient is resting in bed. He is not in acute distress. He is endorsing an aching pain in right shoulder and bilateral legs. He denies any chest pain or SOB. I did not appreciate significant LE erythema or significant TTP. Patient denies any known history of blood clots. Added 1x bengay cream to trial for bilateral legs and right shoulder. Received page from RN at 12:38 AM: Hey he is still in pain and he said the cream didn't work. Also, he was nauseated earlier so I gave him zofran, but he is saying that didn't help either requesting phenergan. Added 1x PRN oxycodone, 5 mg, PO for severe pain and 1x PRN phenergan, 6.25 mg, PO or IM for nausea/vomiting. Normal [facility] Protein Test strip Ql (U)Ord ered By: Laurie Elizalde on 08-23-2024 Protein Ql (U) 500 mg/dl High Negative [facility] Prothrombin Time w/INRon INR Coag (PPP) [Relative time] 1.1 {INR} Normal [facility] Comment on above: Performed By: #### M 100.636, L300.3900, L500.4050, L300.4310, L503.6005, L100.0100, M200.1000 ####[facility] [address] [place], [place], [id number] PT Coag (PPP) [Time] 14.7 s Normal 11.7-14.9 [facility] Comment on above: Performed By: #### M 100.636, L300.3900, L500.4050, L300.4310, L503.6005, L100.0100, M200.1000 ####[facility] [address] [place], [place], [id number] Prothrombin timeOrdered By: Laurie Elizalde on 08-23-2024 PT Coag (PPP) [Time] 14.7 s 11.7-14.9 [facility] RBC Auto (Bld) [#/Vol]Ordere d By: Laurie Elizalde on 08-23-2024 RBC (Bld) [#/Vol] 3.83 10*6/uL Low 4.6-6.2 [facility] RESPIRATORY PATHOGENS PANEL BY PCRon 08-23-2024 RESPIRATORY PATHOGENS PANEL BY PCR SARS-COV-2 Reference Not Detected Not Detected ADENOVIRUS Reference Not Detected Not Detected CORONAVIRUS HKU1 Reference Not Detected Not Detected CORONAVIRUS NL63 Reference Not Detected Not Detected CORONAVIRUS 229E Reference Not Detected Not Detected CORONAVIRUS OC43 Reference Not Detected Not Detected HUMAN METAPNEUMOVIRUS Reference Not Detected Not Detected HUMAN RHINOVIRUS/ENTEROVIR US Reference Not Detected Not Detected INFLUENZA A Reference Not Detected Not Detected INFLUENZA B Reference Not Detected Not Detected PARAINFLUENZA 1 Reference Not Detected Not Detected PARAINFLUENZA 2 Reference Not Detected Not Detected PARAINFLUENZA 3 Reference Not Detected Not Detected PARAINFLUENZA 4 Reference Not Detected Not Detected RESPIRATORY SYNCYTIAL VIRUS Reference Not Detected Not Detected BORDETELLA PERTUSSIS Reference Not Detected Not Detected BORDETELLA PARAPERTUSSIS Reference Not Detected Not Detected CHLAMYDIA PNEUMONIAE Reference Not Detected Not Detected MYCOPLASMA PNEUMONIAE Reference Not Detected Not Detected ORDER COMMENTS: Methodology: Multiplex PCR Normal [facility] Comment on above: Performed By: #### L [id number] ####Facilities Operator: RORO LUNDBERG ([phone])[facility] ([facility])[address] [place] [address] Respiratory pathogens DNA an d RNA panel LAVERN+non-probe (Nph)on 08-23-2024 Adenovirus Not detected Not Detected [facility] B. pertussis DNA LAVERN+probe Ql (Unsp spec) Not detected Not Detected [facility] Bordetella parapertussis Not detected Not Detec sharan [facility] Chlamydia pneumoniae Not detected Not Detected [facility] Coronavirus 229E Not detected Not Detected [facility] Coronavirus HKU1 Not detected Not Detected [facility] Coronavirus NL63 Not detected Not Detected [facility] Coronavirus OC43 Not detected Not Detected [facility] FLUAV RNA LAVERN+non-probe Ql (Nph) Not detected Not Detected [facility] FLUBV RNA LAVERN+non-probe Ql (Nph) Not detected Not Detected [facility] Human Metapneumovirus Not detected Not Detected [facility] Human Rhinovirus/Enterovirus Not detected Not Detected [facility] Interpretation and review of laboratory results Normal [facility] Mycoplasma pneumoniae Not detected Not Detected [facility] Parainfluenza 1 Not detected Not Detected [facility] Parainfluenza 2 Not detected Not Detected [facility] Parainfluenza 3 Not detected Not Detected [facility] Parainfluenza 4 Not detected Not Detected [facility] Respiratory Syncytial Virus Not detected Not De tected [facility] SARS-CoV-2 (COVID-19) RNA LAVERN+non-probe Ql (Nph) Not detected Not Detected [facility] Methodology: Multiplex PCR [facility] SEDIMENTATION RATE, AUTOMATE Don 08-23-2024 SEDIMENTATION RATE, ERYTHROCYTE 30 mm/hr High 0-10 [facility] Comment on above: Performed By: #### L [id number] #### Facilities Operator: RORO LUNDBERG ([id number]) [facility] ([facility]) [address] [place] [address] Serum creatinine measurement (mass/volume)Ordered By: Laurie Elizalde on 08-23-2024 Creatinine [Mass/Vol] 8.87 mg/dL High 0.70-1.20 [facility] Comment on above: Critical Result(s) C alled at: 0139 by: MONET OLIVARES TO VENKATA CHILDS Results read back by same. Serum globulin measurementOr dered By: Laurie Elizalde on 08-23-2024 Globulin (S) [Mass/Vol] 3.0 g/dL 2.2-4.2 [facility] Serum glucose measurement (m ass/volume)Ordered By: Laurie Elizalde on 08-23-2024 Glucose [Mass/Vol] 220 mg/dL High 70-99 [facility] Serum or plasma alanine doshi otransferase (ALT) measurementOrdered By: Laurie Elizalde on 08-23-2024 ALT [Catalytic activity/Vol] 12 U/L <47 [facility] Serum or plasma albumin jessie urement (mass/volume)Ordered By: Laurie Elizalde on 08-23-2024 Albumin [Mass/Vol] 4.7 g/dL 3.5-5.0 [facility] Serum or plasma albumin/glob ulin mass ratioOrdered By: Laurie Elizalde on 08-23-2024 Albumin/Globulin [Mass ratio] 1.6 {ratio} 0.9-2.4 [facility] Serum or plasma alkaline kalie sphatase measurementOrdered By: Laurie Elizalde on 08-23-2024 ALP [Catalytic activity/Vol] 94 U/L 40-129 [facility] Serum or plasma calcium jessie urement (mass/volume)Ordered By: Laurie Elizalde on 08-23-2024 Calcium [Mass/Vol] 10.5 mg/dL 7.6-11.0 [facility] Serum or plasma urea nitroge n measurement (mass/volume)Ordered By: Laurie Elizalde on 08-23-2024 Urea nitrogen [Mass/Vol] 54 mg/dL High 4-19 [facility] Sodium levelOrdered By: Tacos Elizalde on 08-23-2024 Sodium [Moles/Vol] 135 mmol/L 133-145 [facility] Squamous epithelial cells de tection in urine sediment by light microscopyOrdered By: Laurie Elizalde on 08-23-2024 Epithelial cells.squamous LM Ql (Urine sed) 0 SEEN /hpf 0-5 [facility] THYROID STIMULATING HORMONEo n 08-23-2024 THYROID STIMULATING HORMONE 2.48 uIU/mL Normal 0.35-4. 94 [facility] Comment on above: Performed By: #### L [id number] #### Facilities Operator: RORO LUNDBERG ([phone]) [facility] ([facility]) [address] [place] [address] TSH Qnon 08-23-2024 Interpretation and review of laboratory results Normal [facility] Total proteinOrdered By: Farrah Elizalde on 08-23-2024 Protein [Mass/Vol] 7.6 g/dL 5.9-8.4 [facility] Urinalysis, Completeon 08-23 BACTERIA 0 SEEN Normal None Seen [facility] Comment on above: Order Comment: CLEAN CATCH Performed By: #### M 100.678, L400.0001, M100.2200 ####[facility] [address] [place], [address] EPI,SQUAMOUS 0 SEEN Normal 0-5 [facility] Comment on above: Order Comment: CLEAN CATCH Performed By: #### M 100.678, L400.0001, M100.2200 ####[facility] [address] [place], [address] Mucus Ql (Urine sed) 0 SEEN Normal [facility] Comment on above: Order Comment: CLEAN CATCH Performed By: #### M 100.678, L400.0001, M100.2200 ####[facility] [address] [place], [address] RBC 0 SEEN Normal [address] [place] [address] Comment on above: Order Comment: CLEAN CATCH Performed By: #### M 100.678, L400.0001, M100.2200 ####[facility] [address] [place], [place], [address] WBC 0 SEEN Normal 0-5 [facility] Comment on above: Order Comment: CLEAN CATCH Performed By: #### M 100.678, L400.0001, M100.2200 ####[facility] [address] [place], [place], [address] Urine clarityOrdered By: Farrah Elizalde on 08-23-2024 Clarity (U) Clear Clear [facility] Urine color determinationOrd ered By: Laurie Elizalde on 08-23-2024 Color (U) Yellow Yellow [facility] Urine cultureOrdered By: Farrah Elizalde on 08-23-2024 Bacteria identified Cx Nom (U) Positive Abnormal [facility] Urine glucose detectionOrder ed By: Laurie Elizalde on 08-23-2024 Glucose Ql (U) 1000 mg/dl High Normal [facility] Urine leukocyte esterase det ection by dipstickOrdered By: Laurie Elizalde on 08-23-2024 Leukocyte esterase Test strip Ql (U) Negative Negative [facility] Urine pHOrdered By: Laurie sifuentes on 08-23-2024 pH (U) 7.0 [pH] 5.0 - 8.0 [facility] Urine sediment bacteria coun t by microscopy (number/high power field)Ordered By: Laurie Elizalde on 08-23-2024 Bacteria LM.HPF (Urine sed) [#/Area] 0 /[HPF] None Seen [facility] Urine specific gravity measu rementOrdered By: Laurie Elizalde on 08-23-2024 Specific gravity (U) [Rel density] 1.010 1.002-1.030 [facility] Urine urobilinogen measureme ntOrdered By: Laurie Elizalde on 08-23-2024 Urobilinogen Ql (U) Normal mg/dl Normal [facility] White blood cell (WBC) count Ordered By: Laurie Elizalde on 08-23-2024 WBC (Bld) [#/Vol] 26.1 10*3/uL High 4.4-11.0 [facility] White blood cell countOrdere d By: Laurie Elizalde on 08-23-2024 White blood cell count 0 SEEN /hpf 0-5 [facility] XR CHEST 1 VIEWon 08-23-2024 XR CHEST 1 VIEW Patient Name: FARRAH GONZALES : 1980 Exam Date/Time: 08/23/2024 13:22 Procedure: XR CHEST 1 VIEW Ordering Provider: STEEN SHELDON Reason For Exam: concern for pna PORTABLE CHEST X-RAY CLINICAL INDICATION: concern for pna A portable frontal view of the chest was obtained. COMPARISON: None FINDINGS: The cardiac silhouette is within normal limits. Right jugular dialysis catheter terminates near the junction of the superior vena cava and right atrium. No focal consolidation is seen within the lungs. There is no large pleural effusion or pneumothorax. The bony structures of the chest are unremarkable as visualized. IMPRESSION: No acute cardiopulmonary disease. Report Dictated on Electronically Signed By: Anirudh Christie MD Electronically Signed Date/Time: 08/23/2024 1:40 PM EDT [facility] XR Chest Single viewon 08-23 No acute cardiopulmonary disease. Report Dictated on Electronically Signed By: Anirudh Christie MD Electronically Signed Date/Time: 08/23/2024 1:40 PM EDT [facility] Patient Name: FARRAH GONZALES : 1980 Exam Date/Time: 08/23/2024 13:22 Procedure: XR CHEST 1 VIEW Ordering Provider: STEEN SHELDON Reason For Exam: concern for pna PORTABLE CHEST X-RAY CLINICAL INDICATION: concern for pna A portable frontal view of the chest was obtained. COMPARISON: None FINDINGS: The cardiac silhouette is within normal limits. Right jugular dialysis catheter terminates near the junction of the superior vena cava and right atrium. No focal consolidation is seen within the lungs. There is no large pleural effusion or pneumothorax. The bony structures of the chest are unremarkable as visualized. [facility] Anirudh Christie MD - 08/23/2024 Patient Name: FARRAH GONZALES : 1980 Exam Date/Time: 08/23/2024 13:22 Procedure: XR CHEST 1 VIEW Ordering Provider: STEEN SHELDON Reason For Exam: concern for pna PORTABLE CHEST X-RAY CLINICAL INDICATION: concern for pna A portable frontal view of the chest was obtained. COMPARISON: None FINDINGS: The cardiac silhouette is within normal limits. Right jugular dialysis catheter terminates near the junction of the superior vena cava and right atrium. No focal consolidation is seen within the lungs. There is no large pleural effusion or pneumothorax. The bony structures of the chest are unremarkable as visualized. IMPRESSION: No acute cardiopulmonary disease. Report Dictated on Electronically Signed By: Anirudh Christie MD Electronically Signed Date/Time: 08/23/2024 1:40 PM EDT [facility] Radiology Study observation (narrative) [facility] XR Chest Single viewOrdered By: Anirudh Christie on 08-23-2024 [facility] AV Fistula/Dialysis Graft Sc anon 08-19-2024 AV Fistula/Dialysis Graft Scan Normal [facility] Arterial study reportOrdered By: Garrison Valadez on 08-19-2024 Noninvasive arteriosclerosis study report [facility] [address] [place] [address] AV Fistula/Dialysis Graft Scan 08/19/24 1010 MR#: [id number] Acct: [id number] Name: LAURIE GONZALES Rep #:[id number] : 1980 44 From: Garrison Ricketts Attending Dr: LUCÍA Mcdermott Stat us: REG CLI Ordering Dr: Thalia Lea Date: Location: CVS Sex: M C Admitted: Reason For Study Reason For Study: S/P branch ligation LEFT Inflow, 345.5/195.2 cm/s. Inflow, 237.8 ml/min. Anastamosis, 479.2/253.8 cm/sec. Anastamosis, 1499 ml/min. Prox graft, 84.2/46.9 cm/sec. Prox graft, 498.4 ml/min. Midgraft, 92.9/61 cm/sec. Midgraft, 552.8 ml/min. Distal graft, 104/69.6 cm/sec. Distal graft, 511.1 ml/min. Outflow, 57.2/32.7 cm/sec Outflow, 74.9 ml/min Branches noted at distal graft and outflow vein. 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 Marginal flow volume and caliber. Ordering Physician: Thalia Lea Referring Physician: Kristal Sullivan Performed By: Lara Yanez T 08/19/24 1406 Date _ Garrison Valadez MD CC: LUCÍA Mcdermott; Dr. Kristal Sullivan MD ~ Date Dictated: 08/19/24 1010 Date Transcribed: 08/19/24 140 Imcu Specialist: Signed [facility] Work Phone: CNCOon 08-18-2024 [facility] Letter Text Normal [facility] Gastroenterology Visit Repor ton 08-17-2024 Gastroenterology Visit Report Normal [facility] Absolute lymphocyte countOrd ered By: Eugenia London on 08-11-2024 Lymphocytes Auto (Unsp spec) [#/Vol] 1.47 10*3/uL 0.83-4.51 [facility] Absolute neutrophil countOrd ered By: Eugenia London on 08-11-2024 Neutrophils (Bld) [#/Vol] 8.2 10*3/uL High 2.0-7.7 [facility] Anion gap in Serum or Plasma Ordered By: Eugenia London on 08-11-2024 Anion gap [Moles/Vol] 27 mmol/L High 5-15 [facility] Automated lymphocyte count a s percentage of total leukocytesOrdered By: Eugenia London on 08-11-2024 Lymphocytes/100 WBC Auto (Unsp spec) 13.4 % Low 19-41 [facility] BUN/creatinine ratioOrdered By: Eugenia London on 08-11-2024 Urea nitrogen/Creatinine [Mass ratio] 7.7 mg/mg Low 10-20 [facility] Basophil percentageOrdered B y: Eugenia London on 08-11-2024 Basophils/100 WBC (Bld) 0.7 % 0-1 [facility] Bilirubin, totalOrdered By: Eugenia London on 08-11-2024 Bilirubin [Mass/Vol] 0.38 mg/dL 0.00-1.30 [facility] CBC W/Diff, Automatedon 07-29 Absolute Lymph 1.47 X10 3/uL Normal 0.83-4.51 [facility] Comment on above: Performed By: #### L 500.4050, L100.0100, L501.2300, L500.4100, L501.5200 ####[facility] [address] [place], [address] Absolute Neut 8.2 X10 3/uL High 2.0-7.7 [facility] Comment on above: Performed By: #### L 500.4050, L100.0100, L501.2300, L500.4100, L501.5200 ####[facility] [address] [place], [address] Basophils/100 WBC (Bld) 0.7 % Normal 0-1 [facility] Comment on above: Performed By: #### L 500.4050, L100.0100, L501.2300, L500.4100, L501.5200 ####[facility] [address] [place], [address] Eosinophils/100 WBC (Bld) 0.8 % Normal 0-5 [facility] Comment on above: Performed By: #### L 500.4050, L100.0100, L501.2300, L500.4100, L501.5200 ####[facility] [address] [place], [address] Erythrocyte distribution width (RBC) [Ratio] 13.0 % Normal 11.6-14.6 [facility] Comment on above: Performed By: #### L 500.4050, L100.0100, L501.2300, L500.4100, L501.5200 ####[facility] [address] [place], [address] Hematocrit (Bld) [Volume fraction] 34.8 % Low 40-54 [facility] Comment on above: Performed By: #### L 500.4050, L100.0100, L501.2300, L500.4100, L501.5200 ####[facility] [address] [place], [address] Hemoglobin (Bld) [Mass/Vol] 12.1 g/dL Low 13.0-16. 5 [facility] Comment on above: Performed By: #### L 500.4050, L100.0100, L501.2300, L500.4100, L501.5200 ####[facility] [address] [place], [address] IG% 0.400 Normal 0.0-0.9 [facility] Comment on above: Result Comment: IG% - Immature Granulocytes (promyelocytes, myelocytes andmetamyelocytes) > 1% indicates that a LEFT SHIFT is Present. Performed By: #### L 500.4050, L100.0100, L501.2300, L500.4100, L501.5200 ####[facility] [address] [place], [address] Lymphocytes/100 WBC (Bld) 13.4 % Low 19-41 [facility] Comment on above: Performed By: #### L 500.4050, L100.0100, L501.2300, L500.4100, L501.5200 ####[facility] [address] [place], [address] MCH (RBC) [Entitic mass] 31.3 pg Normal 27.0-32.0 [facility] Comment on above: Performed By: #### L 500.4050, L100.0100, L501.2300, L500.4100, L501.5200 ####[facility] [address] [place], [address] MCHC (RBC) [Mass/Vol] 34.8 g/dL Normal 32-36 [facility] Comment on above: Performed By: #### L 500.4050, L100.0100, L501.2300, L500.4100, L501.5200 ####[facility] [address] [place], [address] MCV (RBC) [Entitic vol] 89.9 fL Normal 80-94 [facility] Comment on above: Performed By: #### L 500.4050, L100.0100, L501.2300, L500.4100, L501.5200 ####[facility] [address] [place], [address] Monocytes/100 WBC (Bld) 9.6 % Normal 0-10 [facility] Comment on above: Performed By: #### L 500.4050, L100.0100, L501.2300, L500.4100, L501.5200 ####[facility] [address] [place], [address] Neutrophils/100 WBC (Bld) 75.1 % High 47-70 [facility] Comment on above: Performed By: #### L 500.4050, L100.0100, L501.2300, L500.4100, L501.5200 ####[facility] [address] [place], [address] Nucleated RBC (Bld) [#/Vol] 0 10*3/uL Normal 0-5 [facility] Comment on above: Performed By: #### L 500.4050, L100.0100, L501.2300, L500.4100, L501.5200 ####[facility] [address] [place], [address] Platelet mean volume (Bld) [Entitic vol] 9.4 fL Normal 6.2-12.0 [facility] Comment on above: Performed By: #### L 500.4050, L100.0100, L501.2300, L500.4100, L501.5200 ####[facility] [address] [place], [address] Platelets (Bld) [#/Vol] 302 10*3/uL Normal 150-450 [facility] Comment on above: Performed By: #### L 500.4050, L100.0100, L501.2300, L500.4100, L501.5200 ####[facility] [address] [place], [address] RBC (Bld) [#/Vol] 3.87 10*6/uL Low 4.6-6.2 [facility] Comment on above: Performed By: #### L 500.4050, L100.0100, L501.2300, L500.4100, L501.5200 ####[facility] [address] [place], [address] RDW SD 42.2 fl Normal 35.1-43.9 [facility] Comment on above: Performed By: #### L 500.4050, L100.0100, L501.2300, L500.4100, L501.5200 ####[facility] [address] [place], [address] WBC (Bld) [#/Vol] 10.9 10*3/uL Normal 4.4-11.0 [facility] Comment on above: Performed By: #### L 500.4050, L100.0100, L501.2300, L500.4100, L501.5200 ####[facility] [address] [place], [address] Calculated very low density lipoprotein (VLDL) cholesterol measurementOrdered By: Eugenia London on 08-11-2024 Calculated very low density lipoprotein (VLDL) cholesterol measurement 29 mg/dL 5-40 [facility] Carbon dioxide, total [Moles /volume] in Central venous bloodOrdered By: Eugenia London on 08-11-2024 CO2 [Moles/Vol] 20.8 mmol/L Low 21.0-32.0 [facility] Cardiovascular stress test r eportOrdered By: Jordy Garcia on 08-11-2024 Study report [facility] [address] [facility] [place] [address] MR#: [id number] Acct: [id number] Name: LAURIE GONZALES Rep #: [id number] : 1980 44 From: Jordy Garcia MD Primary Care: Dr. Kristal Sullivan MD Status : ADM WANDA Referring Dr: Sex: M C Stress Test Report Pharmacologic myocardial perfusion stress test. 45-year-old man with a history of chest pain and chronic renal insufficiency previous LAD stenting Resting EKG demonstrates sinus rhythm with a rate of 95 bpm. Resting blood pressure is 150/84 mmHg. 0.4 mg of regadenoson was infused per usual protocol followed by rapid intravenous saline flush injection. Continuous EKG monitoringwas performed. The maximum heart rate was 107 bpm which was 60% of max impactedheart rate the maximum workload was 1 metabolic equivalent. At rest there were no ST or T wave changes noted to suggest ischemia and at peak infusion nonspecific ST changes were noted which did not meet the criteria for ischemia. No clinical angina is noted. The final blood pressure was 130/80 mmHg. Myocardial perfusion protocol. 12.0 mCi of technetium 99m sestamibi was injected at rest. 0.4 mg of regadenoson was infused per usual protocol. At peak infusion 35.6 mCi of technetium 99m sestamibi was injected stress images were obtained stress and rest images were reconstructed and compared in the short axis vertical long and horizontal long axis. Gated images were also obtained. Perfusion SPECT analysis: Review of the stress images demonstrate normal uptake of tracer noted in all areas of the myocardium except for a medium size area in the mid anterior wall with a perfusion defect. The resting images demonstrate a small sized area in the mid anterior wall with a perfusion defect suggesting a previous anterior infarct with mild ede-infarct ischemia. Gated SPECT analysis: The gated ejection fraction is 60%. Conclusion: Mildly abnormal pharmacologic myocardial perfusion stress test. Preserved ejection fraction. Previous anterior infarct with mild ede-infarct ischemia 08/11/24 1246 Date _ Jordy Garcia MD CC: Dr. Kristal Sullivan MD; Dr. Daisy Diaz MD; Dr. Eugenia London DO; Dr. Louis Koehler MD; Dr. Jace Yanes DO ~ Date Dictated: 08/11/24 1243 Date Transcribed: 08/11/241242 Imcu Specialist: [place] Signed [facility] Work Phone: Chloride assayOrdered By: Pradeep London on 08-11-2024 Chloride [Moles/Vol] 89 mmol/L Low 98-108 [facility] Comprehensive Metabolic Prof ilon 08-11-2024 Albumin [Mass/Vol] 4.3 g/dL Normal 3.5-5.0 [facility] Comment on above: Performed By: #### L 500.4050, L100.0100, L501.2300, L500.4100, L501.5200 ####[facility] [address] [place], [place], [id number] Albumin/Globulin [Mass ratio] 1.6 {ratio} Normal 0.9-2.4 [facility] Comment on above: Performed By: #### L 500.4050, L100.0100, L501.2300, L500.4100, L501.5200 ####[facility] [address] [place], [address] ALK PHOS 81 U/L Normal 40-129 [facility] Comment on above: Performed By: #### L 500.4050, L100.0100, L501.2300, L500.4100, L501.5200 ####[facility] [address] [place], [address] ALT [Catalytic activity/Vol] 10 U/L Normal <=46 [facility] Comment on above: Performed By: #### L 500.4050, L100.0100, L501.2300, L500.4100, L501.5200 ####[facility] [address] [place], [address] AST [Catalytic activity/Vol] 18 U/L Normal <=37 [facility] Comment on above: Performed By: #### L 500.4050, L100.0100, L501.2300, L500.4100, L501.5200 ####[facility] [address] [place], [address] Bilirubin [Mass/Vol] 0.38 mg/dL Normal 0.00-1.30 [facility] Comment on above: Performed By: #### L 500.4050, L100.0100, L501.2300, L500.4100, L501.5200 ####[facility] [address] [place], [address] BUN/CRE 7.7 RATIO Low 10-20 [facility] Comment on above: Performed By: #### L 500.4050, L100.0100, L501.2300, L500.4100, L501.5200 ####[facility] [address] [place], [address] Calcium [Mass/Vol] 9.6 mg/dL Normal 7.6-11.0 [facility] Comment on above: Performed By: #### L 500.4050, L100.0100, L501.2300, L500.4100, L501.5200 ####[facility] [address] [place], [address] Chloride [Moles/Vol] 89 mmol/L Low 98-108 [facility] Comment on above: Performed By: #### L 500.4050, L100.0100, L501.2300, L500.4100, L501.5200 ####[facility] [address] [place], [address] CO2 [Moles/Vol] 20.8 mmol/L Low 21.0-32.0 [facility] Comment on above: Performed By: #### L 500.4050, L100.0100, L501.2300, L500.4100, L501.5200 ####[facility] [address] [place], [address] Creatinine [Mass/Vol] 7.33 mg/dL High 0.70-1.20 [facility] Comment on above: Performed By: #### L 500.4050, L100.0100, L501.2300, L500.4100, L501.5200 ####[facility] [address] [place], [address] ECRCL 13.98 ml/min Low 50-250 [facility] Comment on above: Performed By: #### L 500.4050, L100.0100, L501.2300, L500.4100, L501.5200 ####[facility] [address] [place], [address] GAP 27 High 5-15 [facility] Comment on above: Performed By: #### L 500.4050, L100.0100, L501.2300, L500.4100, L501.5200 ####[facility] [address] [place], [address] GFR/1.73 sq M.predicted among non-blacks MDRD (S/P/Bld) [Vol rate/Area] 9 mL/min/{1.73_m2} Low >60 [facility] Comment on above: Result Comment: mL/m in/1.73m2 CKD-EPI Creatinine Equation (2020) Performed By: #### L 500.4050, L100.0100, L501.2300, L500.4100, L501.5200 ####[facility] [address] [place], [address] Globulin (S) [Mass/Vol] 2.7 g/dL Normal 2.2-4.2 [facility] Comment on above: Performed By: #### L 500.4050, L100.0100, L501.2300, L500.4100, L501.5200 ####[facility] [address] [place], [address] Glucose [Mass/Vol] 183 mg/dL High 70-99 [facility] Comment on above: Performed By: #### L 500.4050, L100.0100, L501.2300, L500.4100, L501.5200 ####[facility] [address] [place], [address] Potassium [Moles/Vol] 4.4 mmol/L Normal 3.3-5.1 [facility] Comment on above: Performed By: #### L 500.4050, L100.0100, L501.2300, L500.4100, L501.5200 ####[facility] [address] [place], [address] Sodium [Moles/Vol] 136 mmol/L Normal 133-145 [facility] Comment on above: Performed By: #### L 500.4050, L100.0100, L501.2300, L500.4100, L501.5200 ####[facility] [address] [place], [address] T PROT 7.1 g/dL Normal 5.9-8.4 [facility] Comment on above: Performed By: #### L 500.4050, L100.0100, L501.2300, L500.4100, L501.5200 ####[facility] [address] [place], [address] Urea nitrogen [Mass/Vol] 56 mg/dL High 4-19 [facility] Comment on above: Performed By: #### L 500.4050, L100.0100, L501.2300, L500.4100, L501.5200 ####[facility] [address] [place], [address] Consultation - Nephrologyon 08-11-2024 Consultation - Nephrology Normal [facility] Discharge Instructionon 07-29 Discharge Instruction Normal [facility] Eosinophil percentageOrdered By: Eugenia London on 08-11-2024 Eosinophils/100 WBC (Bld) 0.8 % 0-5 [facility] Erythrocyte distribution wid th ratioOrdered By: Eugenia London on 08-11-2024 Erythrocyte distribution width (RBC) [Ratio] 13.0 % 11.6-14.6 [facility] Erythrocyte distribution wid th standard deviationOrdered By: Eugenia London on 08-11-2024 Erythrocyte distribution width (RBC) [Ratio] 42.2 fl 35.1-43.9 [facility] Glomerular filtration rate ( GFR) estimation/1.73 sq m using serum, plasma, or whole bOrdered By: Eugenia London on 08-11-2024 GFR/1.73 sq M.predicted among non-blacks MDRD (S/P/Bld) [Vol rate/Area] 9 mL/min/{1.73_m2} Low >60 [facility] Comment on above: mL/min/1.73m2 CKD-EP I Creatinine Equation (2020) Hematocrit Auto (Bld) [Volum e fraction]Ordered By: Eugenia London on 08-11-2024 Hematocrit (Bld) [Volume fraction] 34.8 % Low 40-54 [facility] Hemoglobin A1con 08-11-2024 HbA1c (Bld) [Mass fraction] 7.2 % High <=5.6 [facility] Comment on above: Result Comment: Norm al < 5.7 % Prediabetic 5.7 - 6.4 % Diabetic >or= 6.5 % Please note range changes. Performed By: #### L 501.9985 ####[facility] [address] [place], [place], [address] Hemoglobin A1c percentageOrd ered By: Eugenia London on 08-11-2024 HbA1c (Bld) [Mass fraction] 7.2 % High <5.7 [facility] Comment on above: Normal < 5.7 % Predi abetic 5.7 - 6.4 % Diabetic >or= 6.5 % Please note range changes. Hemoglobin measurementOrdere d By: Eugenia London on 08-11-2024 Hemoglobin (Bld) [Mass/Vol] 12.1 g/dL Low 13.0-16. 5 [facility] Immature granulocytes/100 WB C Auto (Bld)Ordered By: Eugenia London on 08-11-2024 Immature granulocytes/100 WBC (Bld) 0.400 % 0.0-0.9 [facility] Comment on above: IG% - Immature Granu locytes (promyelocytes, myelocytes and metamyelocytes) > 1% indicates that a LEFT SHIFT is Present. L499.0043on 08-11-2024 Trop T High Sen 208 ng/L Invalid Interpretation Code <=22 [facility] Comment on above: Result Comment: Crit ical Result(s) Called at:0007 by:??MONET HAVEN ANGEL MANOLO Results read back by same. Performed By: #### L 499.0043 ####[facility] [address] [place], [place], [id number] LDL calc ser/plasOrdered By: Eugenia London on 08-11-2024 Cholesterol in LDL [Mass/Vol] 61 mg/dL [facility] Comment on above: Anobvfhjnp=375-684 m g/dL & Higher Tuwb=917 mg/dL or greater Laboratory - Chemistry and C hemistry - challengeOrdered By: Eugenia London on 08-11-2024 AST [Catalytic activity/Vol] 18 U/L <38 [facility] Lipaseon 08-11-2024 Lipase [Catalytic activity/Vol] 25 U/L Normal 13-75 [facility] Comment on above: Result Comment: Surekha walsh note:LIPASE revised reference range effective 22.New Lipase methodology. Expected to produce lower valuesthan the previous assay method.NEW Reference Range: 13 - 75 U/L Performed By: #### L 501.2450 ####[facility] [address] [place], [address] Lipid Profileon 08-11-2024 CHOL:HDL 2.65 Normal [facility] Comment on above: Performed By: #### L 500.4050, L100.0100, L501.2300, L500.4100, L501.5200 ####[facility] [address] [place], [address] Cholesterol [Mass/Vol] 145 mg/dL Normal <=[address] [facility] Comment on above: Result Comment: Chol esterol level, Desirable <200 mg/dLBorderline high cholesterol 200-239 mg/dLHigh cholesterol >=240 mg/dLRecommendations of the NCEP Adult Treatment Panel for thefollowing risk-cutoff thresholds for the [place] Americanpopulation. Performed By: #### L 500.4050, L100.0100, L501.2300, L500.4100, L501.5200 ####[facility] [address] [place], [address] Cholesterol in HDL [Mass/Vol] 55 mg/dL Normal [facility] Comment on above: Result Comment: Naomi onal Cholesterol Education Program (NCEP) guidelines:<40 mg/dL: Low HDL-cholesterol (major risk factor for CHD)>= 60 mg/dL: High HDL-cholesterol (negative risk factor forCHD)HDL-cholesterol is affected by a number of factors, e.g.smoking, exercise, hormones, sex and age. Performed By: #### L 500.4050, L100.0100, L501.2300, L500.4100, L501.5200 ####[facility] [address] [place], [address] Cholesterol in LDL [Mass/Vol] 61 mg/dL Normal [facility] Comment on above: Result Comment: Bord milwoz=064-163 mg/dL Higher Czor=310 mg/dL or greater Performed By: #### L 500.4050, L100.0100, L501.2300, L500.4100, L501.5200 ####[facility] [address] [place], [address] Cholesterol in VLDL [Mass/Vol] 29 mg/dL Normal 5-40 [facility] Comment on above: Performed By: #### L 500.4050, L100.0100, L501.2300, L500.4100, L501.5200 ####[facility] [address] [place], [address] Triglyceride [Mass/Vol] 146 mg/dL Normal [facility] Comment on above: Result Comment: The drugs N-Acetylcysteine and Metamizole may falselydepress this assay.Normal range: <150 mg/dLBorderline High: 150-199 mg/dLHigh: 200-499 mg/dLVery High: >500 mg/dL Performed By: #### L 500.4050, L100.0100, L501.2300, L500.4100, L501.5200 ####[facility] [address] [place], [address] MCV (mean corpuscular volume ) determinationOrdered By: Eugenia London on 08-11-2024 MCV (RBC) [Entitic vol] 89.9 fL 80-94 [facility] Magnesiumon 08-11-2024 Magnesium [Mass/Vol] 2.6 mg/dL High 1.5-2.2 [facility] Comment on above: Performed By: #### L 500.4050, L100.0100, L501.2300, L500.4100, L501.5200 ####[facility] [address] [place], [address] Magnesium measurement (mass/ volume)Ordered By: Eugenia London on 08-11-2024 Magnesium (Unsp spec) [Mass/Vol] 2.6 mg/dL High 1.5-2.2 [facility] Mean corpuscular hemoglobin (MCH) determinationOrdered By: Eugenia London on 08-11-2024 MCH (RBC) [Entitic mass] 31.3 pg 27.0-32.0 [facility] Mean corpuscular hemoglobin concentration (MCHC) determinationOrdered By: Eugenia London on 08-11-2024 MCHC (RBC) [Mass/Vol] 34.8 g/dL 32-36 [facility] Mean platelet volume determi nationOrdered By: Eugenia London on 08-11-2024 Platelet mean volume (Bld) [Entitic vol] 9.4 fL 6.2-12.0 [facility] Monocyte percentageOrdered B y: Eugenia London on 08-11-2024 Monocytes/100 WBC (Bld) 9.6 % 0-10 [facility] Neutrophil percentageOrdered By: Eugenia London on 08-11-2024 Neutrophils/100 WBC (Bld) 75.1 % High 47-70 [facility] Nucleated red blood cell per centageOrdered By: Eugenia London on 08-11-2024 Nucleated RBC/100 WBC (Bld) [Ratio] 0 % 0-5 [facility] Phosphoruson 08-11-2024 Phosphate [Mass/Vol] 6.8 mg/dL High 2.7-4.5 [facility] Comment on above: Performed By: #### L 500.4050, L100.0100, L501.2300, L500.4100, L501.5200 ####[facility] [address] [place], [address] Platelet countOrdered By: Pradeep London on 08-11-2024 Platelets (Bld) [#/Vol] 302 10*3/uL 150-450 [facility] Potassium measurement (mass/ volume)Ordered By: Eugenia London on 08-11-2024 Potassium (Unsp spec) [Mass/Vol] 4.4 mmol/L 3.3-5.1 [facility] RBC Auto (Bld) [#/Vol]Ordere d By: Eugenia London on 08-11-2024 RBC (Bld) [#/Vol] 3.87 10*6/uL Low 4.6-6.2 [facility] Screening total cholesterol/ high density lipoprotein (HDL) cholesterol ratioOrdered By: Eugenia London on 08-11-2024 Cholesterol.total/Cholester ol in HDL [Mass ratio] 2.65 {ratio} [facility] Serum creatinine measurement (mass/volume)Ordered By: Eugenia London on 08-11-2024 Creatinine [Mass/Vol] 7.33 mg/dL High 0.70-1.20 [facility] Serum globulin measurementOr dered By: Eugenia London on 08-11-2024 Globulin (S) [Mass/Vol] 2.7 g/dL 2.2-4.2 [facility] Serum glucose measurement (m ass/volume)Ordered By: Eugenia London on 08-11-2024 Glucose [Mass/Vol] 183 mg/dL High 70-99 [facility] Serum or plasma alanine odshi otransferase (ALT) measurementOrdered By: Eugenia London on 08-11-2024 ALT [Catalytic activity/Vol] 10 U/L <47 [facility] Serum or plasma albumin jessie urement (mass/volume)Ordered By: Eugenia London on 08-11-2024 Albumin [Mass/Vol] 4.3 g/dL 3.5-5.0 [facility] Serum or plasma albumin/glob ulin mass ratioOrdered By: Eugenia London on 08-11-2024 Albumin/Globulin [Mass ratio] 1.6 {ratio} 0.9-2.4 [facility] Serum or plasma alkaline kalie sphatase measurementOrdered By: Eugenia London on 08-11-2024 ALP [Catalytic activity/Vol] 81 U/L 40-129 [facility] Serum or plasma calcium jessie urement (mass/volume)Ordered By: Eugenia London on 08-11-2024 Calcium [Mass/Vol] 9.6 mg/dL 7.6-11.0 [facility] Serum or plasma cholesterol in HDL measurement (mass/volume)Ordered By: Eugenia London on 08-11-2024 Cholesterol in HDL [Mass/Vol] 55 mg/dL >40 [facility] Comment on above: National Cholesterol Education Program (NCEP) guidelines:<40 mg/dL: Low HDL-cholesterol (major risk factor for CHD)>= 60 mg/dL: High HDL-cholesterol (negative risk factor for CHD)HDL-cholesterol is affected by a number of factors, e.g. smoking, exercise, hormones, sex and age. Serum or plasma cholesterol measurement (mass/volume)Ordered By: Eugenia London on 08-11-2024 Cholesterol [Mass/Vol] 145 mg/dL <[address] [facility] Comment on above: Cholesterol level, D esirable <200 mg/dLBorderline high cholesterol 200-239 mg/dLHigh cholesterol >=240 mg/dLRecommendations of the NCEP Adult Treatment Panel for the following risk-cutoff thresholds for the [place] population. Serum or plasma urea nitroge n measurement (mass/volume)Ordered By: Eugenia London on 08-11-2024 Urea nitrogen [Mass/Vol] 56 mg/dL High 4-19 [facility] Sodium levelOrdered By: Fatoumata London on 08-11-2024 Sodium [Moles/Vol] 136 mmol/L 133-145 [facility] Stress Reporton 08-11-2024 Stress Report Normal [facility] Total proteinOrdered By: Jolly London on 08-11-2024 Protein [Mass/Vol] 7.1 g/dL 5.9-8.4 [facility] Triglycerides measurementOrd ered By: Eugenia London on 08-11-2024 Triglyceride [Mass/Vol] 146 mg/dL <199 [facility] Comment on above: The drugs N-Acetylcy steine and Metamizole may falsely depress this assay. Normal range: <150 mg/dLBorderline High: 150-199 mg/dLHigh: 200-499 mg/dLVery High: >500 mg/dL White blood cell (WBC) count Ordered By: Eugenia London on 08-11-2024 WBC (Bld) [#/Vol] 10.9 10*3/uL 4.4-11.0 [facility] 12 Lead EKGon 08-10-2024 12 Lead EKG Normal [facility] 12 Lead EKG Normal [facility] 12 Lead EKG Normal [facility] Absolute lymphocyte countOrd ered By: Jace Yanes on 08-10-2024 Lymphocytes Auto (Unsp spec) [#/Vol] 1.39 10*3/uL 0.83-4.51 [facility] Absolute neutrophil countOrd ered By: Jace Yanes on 08-10-2024 Neutrophils (Bld) [#/Vol] 8.9 10*3/uL High 2.0-7.7 [facility] Activated partial thrombopla stin time (aPTT) in platelet poor plasma by coagulation aOrdered By: Jace Yanes on 08-10-2024 aPTT Coag (PPP) [Time] 24.5 s 24.1-36.[address] [facility] Anion gap in Serum or Plasma Ordered By: Jace Yanes on 08-10-2024 Anion gap [Moles/Vol] 26 mmol/L High 5-15 [facility] Automated lymphocyte count a s percentage of total leukocytesOrdered By: Jace Yanes on 08-10-2024 Lymphocytes/100 WBC Auto (Unsp spec) 12.1 % Low 19-41 [facility] BUN/creatinine ratioOrdered By: Jace Yanes on 08-10-2024 Urea nitrogen/Creatinine [Mass ratio] 7.3 mg/mg Low 10-20 [facility] Basic Metabolic Profile (BMP )on 08-10-2024 BUN/CRE 7.3 RATIO Low - [facility] Comment on above: Performed By: #### L 501.4021, L300.3900, L100.0100, L500.2500, L300.4310 ####[facility] [address] [place], [address] Calcium [Mass/Vol] 11.0 mg/dL Normal 7.6-11.0 [facility] Comment on above: Performed By: #### L 501.4021, L300.3900, L100.0100, L500.2500, L300.4310 ####[facility] [address] [place], [address] Chloride [Moles/Vol] 91 mmol/L Low 98-108 [facility] Comment on above: Performed By: #### L 501.4021, L300.3900, L100.0100, L500.2500, L300.4310 ####[facility] [address], [address] CO2 [Moles/Vol] 20.8 mmol/L Low 21.0-32.0 [facility] Comment on above: Performed By: #### L 501.4021, L300.3900, L100.0100, L500.2500, L300.4310 ####[facility] [address] [place], [address] Creatinine [Mass/Vol] 6.57 mg/dL High 0.70-1.20 [facility] Comment on above: Performed By: #### L 501.4021, L300.3900, L100.0100, L500.2500, L300.4310 ####[facility] [address] [place], [address] ECRCL 15.60 ml/min Low 50-250 [facility] Comment on above: Performed By: #### L 501.4021, L300.3900, L100.0100, L500.2500, L300.4310 ####[facility] [address] [place], [address] GAP 26 High 5-15 [facility] Comment on above: Performed By: #### L 501.4021, L300.3900, L100.0100, L500.2500, L300.4310 ####[facility] [address] [place], [address] GFR/1.73 sq M.predicted among non-blacks MDRD (S/P/Bld) [Vol rate/Area] 10 mL/min/{1.73_m2} Low >[address] [facility] Comment on above: Result Comment: mL/m in/1.73m2 CKD-EPI Creatinine Equation (2020) Performed By: #### L 501.4021, L300.3900, L100.0100, L500.2500, L300.4310 ####[facility] [address] [place], [address] Glucose [Mass/Vol] 118 mg/dL High 70-99 [facility] Comment on above: Performed By: #### L 501.4021, L300.3900, L100.0100, L500.2500, L300.4310 ####[facility] [address] [place], [address] Potassium [Moles/Vol] 4.0 mmol/L Normal 3.3-5.1 [facility] Comment on above: Performed By: #### L 501.4021, L300.3900, L100.0100, L500.2500, L300.4310 ####[facility] [address] [place], [address] Sodium [Moles/Vol] 138 mmol/L Normal 133-145 [facility] Comment on above: Performed By: #### L 501.4021, L300.3900, L100.0100, L500.2500, L300.4310 ####[facility] [address] [place], [address] Urea nitrogen [Mass/Vol] 48 mg/dL High 4-19 [facility] Comment on above: Performed By: #### L 501.4021, L300.3900, L100.0100, L500.2500, L300.4310 ####[facility] [address] [place], [address] Basophil percentageOrdered B y: Jace Yanes on 08-10-2024 Basophils/100 WBC (Bld) 0.6 % 0-1 [facility] CBC W/Diff, Automatedon 07-29 Absolute Lymph 1.39 X10 3/uL Normal 0.83-4.51 [facility] Comment on above: Performed By: #### L 501.4021, L300.3900, L100.0100, L500.2500, L300.4310 ####[facility] [address] [place], [address] Absolute Neut 8.9 X10 3/uL High 2.0-7.7 [facility] Comment on above: Performed By: #### L 501.4021, L300.3900, L100.0100, L500.2500, L300.4310 ####[facility] [address] [place], [address] Basophils/100 WBC (Bld) 0.6 % Normal 0-1 [facility] Comment on above: Performed By: #### L 501.4021, L300.3900, L100.0100, L500.2500, L300.4310 ####[facility] [address] [place], [address] Eosinophils/100 WBC (Bld) 1.0 % Normal 0-5 [facility] Comment on above: Performed By: #### L 501.4021, L300.3900, L100.0100, L500.2500, L300.4310 ####[facility] [address] [place], [address] Erythrocyte distribution width (RBC) [Ratio] 12.8 % Normal 11.6-14.6 [facility] Comment on above: Performed By: #### L 501.4021, L300.3900, L100.0100, L500.2500, L300.4310 ####[facility] [address] [place], [address] Hematocrit (Bld) [Volume fraction] 39.0 % Low 40-54 [facility] Comment on above: Performed By: #### L 501.4021, L300.3900, L100.0100, L500.2500, L300.4310 ####[facility] [address] [place], [address] Hemoglobin (Bld) [Mass/Vol] 13.6 g/dL Normal 13.0-16. 5 [facility] Comment on above: Performed By: #### L 501.4021, L300.3900, L100.0100, L500.2500, L300.4310 ####[facility] [address] [place], [address] IG% 0.500 Normal 0.0-0.9 [facility] Comment on above: Result Comment: IG% - Immature Granulocytes (promyelocytes, myelocytes andmetamyelocytes) > 1% indicates that a LEFT SHIFT is Present. Performed By: #### L 501.4021, L300.3900, L100.0100, L500.2500, L300.4310 ####[facility] [address] [place], [address] Lymphocytes/100 WBC (Bld) 12.1 % Low 19-41 [facility] Comment on above: Performed By: #### L 501.4021, L300.3900, L100.0100, L500.2500, L300.4310 ####[facility] [address] [place], [address] MCH (RBC) [Entitic mass] 30.8 pg Normal 27.0-32.0 [facility] Comment on above: Performed By: #### L 501.4021, L300.3900, L100.0100, L500.2500, L300.4310 ####[facility] [address] [place], [address] MCHC (RBC) [Mass/Vol] 34.9 g/dL Normal 32-36 [facility] Comment on above: Performed By: #### L 501.4021, L300.3900, L100.0100, L500.2500, L300.4310 ####[facility] [address] [place], [address] MCV (RBC) [Entitic vol] 88.2 fL Normal 80-94 [facility] Comment on above: Performed By: #### L 501.4021, L300.3900, L100.0100, L500.2500, L300.4310 ####[facility] [address] [place], [address] Monocytes/100 WBC (Bld) 8.3 % Normal 0-10 [facility] Comment on above: Performed By: #### L 501.4021, L300.3900, L100.0100, L500.2500, L300.4310 ####[facility] [address] [place], [address] Neutrophils/100 WBC (Bld) 77.5 % High 47-70 [facility] Comment on above: Performed By: #### L 501.4021, L300.3900, L100.0100, L500.2500, L300.4310 ####[facility] [address] [place], [address] Nucleated RBC (Bld) [#/Vol] 0 10*3/uL Normal 0-5 [facility] Comment on above: Performed By: #### L 501.4021, L300.3900, L100.0100, L500.2500, L300.4310 ####[facility] [address] [place], [address] Platelet mean volume (Bld) [Entitic vol] 9.2 fL Normal 6.2-12.0 [facility] Comment on above: Performed By: #### L 501.4021, L300.3900, L100.0100, L500.2500, L300.4310 ####[facility] [address] [place], [address] Platelets (Bld) [#/Vol] 359 10*3/uL Normal 150-450 [facility] Comment on above: Performed By: #### L 501.4021, L300.3900, L100.0100, L500.2500, L300.4310 ####[facility] [address] [place], [address] RBC (Bld) [#/Vol] 4.42 10*6/uL Low 4.6-6.2 [facility] Comment on above: Performed By: #### L 501.4021, L300.3900, L100.0100, L500.2500, L300.4310 ####[facility] [address] [place], [address] RDW SD 41.7 fl Normal 35.1-43.9 [facility] Comment on above: Performed By: #### L 501.4021, L300.3900, L100.0100, L500.2500, L300.4310 ####[facility] [address] [place], [address] WBC (Bld) [#/Vol] 11.5 10*3/uL High 4.4-11.0 [facility] Comment on above: Performed By: #### L 501.4021, L300.3900, L100.0100, L500.2500, L300.4310 ####[facility] [address] [place], [address] CTA Chest W/WO Contraston CTA Chest W/WO Contrast Normal [facility] Carbon dioxide, total [Moles /volume] in Central venous bloodOrdered By: Jace Yanes on 08-10-2024 CO2 [Moles/Vol] 20.8 mmol/L Low 21.0-32.0 [facility] Chest PA and Lateralon 08-10 Chest PA and Lateral Normal [facility] Chloride assayOrdered By: Richmond Yanes on 08-10-2024 Chloride [Moles/Vol] 91 mmol/L Low 98-108 [facility] Emergency Department Summary on 08-10-2024 Emergency Department Summary Normal [facility] Eosinophil percentageOrdered By: Jace Yanes on 08-10-2024 Eosinophils/100 WBC (Bld) 1.0 % 0-5 [facility] Erythrocyte distribution wid th ratioOrdered By: Jace Yanes on 08-10-2024 Erythrocyte distribution width (RBC) [Ratio] 12.8 % 11.6-14.6 [facility] Erythrocyte distribution wid th standard deviationOrdered By: Jace Yanes on 08-10-2024 Erythrocyte distribution width (RBC) [Ratio] 41.7 fl 35.1-43.9 [facility] Glomerular filtration rate ( GFR) estimation/1.73 sq m using serum, plasma, or whole bOrdered By: Jace Yanes on 08-10-2024 GFR/1.73 sq M.predicted among non-blacks MDRD (S/P/Bld) [Vol rate/Area] 10 mL/min/{1.73_m2} Low >[address] [facility] Comment on above: mL/min/1.73m2 CKD-EP I Creatinine Equation (2020) H AND P Exam - Hospitaliston 08-10-2024 H&P Exam - Hospitalist Normal [facility] Hematocrit Auto (Bld) [Volum e fraction]Ordered By: Jace Yanes on 08-10-2024 Hematocrit (Bld) [Volume fraction] 39.0 % Low 40-54 [facility] Hemoglobin measurementOrdere d By: Jace Yanes on 08-10-2024 Hemoglobin (Bld) [Mass/Vol] 13.6 g/dL 13.0-16. 5 [facility] Immature granulocytes/100 WB C Auto (Bld)Ordered By: Jace Le on 08-10-2024 Immature granulocytes/100 WBC (Bld) 0.500 % 0.0-0.9 [facility] Comment on above: IG% - Immature Granu locytes (promyelocytes, myelocytes and metamyelocytes) > 1% indicates that a LEFT SHIFT is Present. International normalized rat io (INR) calculationOrdered By: Jace Yanes on 08-10-2024 INR Coag (Bld) [Relative time] 0.9 {INR} [facility] L499.0042on 08-10-2024 Trop T High Sen 193 ng/L Invalid Interpretation Code <=22 [facility] Comment on above: Result Comment: Crit ical Result(s) Called at:2226 by:??MONET FONG Results read back by same. Performed By: #### L 499.0042 ####[facility] [address] [place], [address] L501.4021on 08-10-2024 Trop T High Sen 211 ng/L Invalid Interpretation Code <=22 [facility] Comment on above: Result Comment: Crit ical Result(s) Called ACOLE at: 2114 by:JEY??Results read back by same. Performed By: #### L 501.4021, L300.3900, L100.0100, L500.2500, L300.4310 ####[facility] [address] [place], [address] Lipase measurementOrdered By : Eugenia London on 08-10-2024 Lipase [Catalytic activity/Vol] 25 U/L 13-75 [facility] Comment on above: Please note:LIPASE r evised reference range effective 22. New Lipase methodology. Expected to produce lower values than the previous assay method. NEW Reference Range: 13 - 75 U/L MCV (mean corpuscular volume ) determinationOrdered By: Jcae Yanes on 08-10-2024 MCV (RBC) [Entitic vol] 88.2 fL 80-94 [facility] Mean corpuscular hemoglobin (MCH) determinationOrdered By: Jace Yanes on 08-10-2024 MCH (RBC) [Entitic mass] 30.8 pg 27.0-32.0 [facility] Mean corpuscular hemoglobin concentration (MCHC) determinationOrdered By: Jace Yanes on 08-10-2024 MCHC (RBC) [Mass/Vol] 34.9 g/dL 32-36 [facility] Mean platelet volume determi nationOrdered By: Jace Yanes on 08-10-2024 Platelet mean volume (Bld) [Entitic vol] 9.2 fL 6.2-12.0 [facility] Monocyte percentageOrdered B y: Jace Yanes on 08-10-2024 Monocytes/100 WBC (Bld) 8.3 % 0-10 [facility] Neutrophil percentageOrdered By: Jace Yanes on 08-10-2024 Neutrophils/100 WBC (Bld) 77.5 % High 47-70 [facility] Nucleated red blood cell per centageOrdered By: Jace Yanes on 08-10-2024 Nucleated RBC/100 WBC (Bld) [Ratio] 0 % 0-5 [facility] Partial Thromboplast Timeon 08-10-2024 aPTT Coag (Bld) [Time] 24.5 s Normal 24.1-36.[address] [facility] Comment on above: Performed By: #### L 501.4021, L300.3900, L100.0100, L500.2500, L300.4310 ####[facility] [address] [facility] [place], [place], [id number] Platelet countOrdered By: Richmond Yanes on 08-10-2024 Platelets (Bld) [#/Vol] 359 10*3/uL 150-450 [facility] Potassium measurement (mass/ volume)Ordered By: Jace Yanes on 08-10-2024 Potassium (Unsp spec) [Mass/Vol] 4.0 mmol/L 3.3-5.1 [facility] Prothrombin Time w/INRon INR Coag (PPP) [Relative time] 0.9 {INR} Normal [facility] Comment on above: Performed By: #### L 501.4021, L300.3900, L100.0100, L500.2500, L300.4310 ####[facility] [address] [place], [address] PT Coag (PPP) [Time] 12.7 s Normal 11.7-14.9 [facility] Comment on above: Performed By: #### L 501.4021, L300.3900, L100.0100, L500.2500, L300.4310 ####[facility] [address] [place], [place], [address] Prothrombin timeOrdered By: Jace Yanes on 08-10-2024 PT Coag (PPP) [Time] 12.7 s 11.7-14.9 [facility] RBC Auto (Bld) [#/Vol]Ordere d By: Jace Yanes on 08-10-2024 RBC (Bld) [#/Vol] 4.42 10*6/uL Low 4.6-6.2 [facility] Serum creatinine measurement (mass/volume)Ordered By: Jace Yanes on 08-10-2024 Creatinine [Mass/Vol] 6.57 mg/dL High 0.70-1.20 [facility] Serum glucose measurement (m ass/volume)Ordered By: Jace Yanes on 08-10-2024 Glucose [Mass/Vol] 118 mg/dL High 70-99 [facility] Serum or plasma calcium jessie urement (mass/volume)Ordered By: Jace Yanes on 08-10-2024 Calcium [Mass/Vol] 11.0 mg/dL 7.6-11.0 [facility] Serum or plasma urea nitroge n measurement (mass/volume)Ordered By: Jace Yanes on 08-10-2024 Urea nitrogen [Mass/Vol] 48 mg/dL High 4-19 [facility] Sodium levelOrdered By: Jace Yanes on 08-10-2024 Sodium [Moles/Vol] 138 mmol/L 133-145 [facility] Troponin T.cardiac [Mass/vol ume] in Serum or Plasma by High sensitivity methodOrdered By: Jace Yanes on 08-10-2024 Troponin T.cardiac High sensitivity method [Mass/Vol] 208 ng/L High <22 [facility] Comment on above: Critical Result(s) C alled at:0007 by: MONET OLIVARES TO AMDAI FRENCH Results read back by same. Troponin T.cardiac High sensitivity method [Mass/Vol] 193 ng/L High <22 [facility] Comment on above: Critical Result(s) C alled at:2226 by: MONET OLIVARES TO MARIOPARR Results read back by same. Troponin T.cardiac High sensitivity method [Mass/Vol] 211 ng/L High <22 [facility] Comment on above: Critical Result(s) C alled ACOLE at: 2114 by: JEY Results read back by same. White blood cell (WBC) count Ordered By: Jace Yanes on 08-10-2024 WBC (Bld) [#/Vol] 11.5 10*3/uL High 4.4-11.0 [facility] Surgery Visit Reporton 08-05 Surgery Visit Report Normal [facility] Endocrinology Visit Reporton 07-28-2024 Endocrinology Visit Report Normal [facility] Laboratory - Hematology and Cell countsOrdered By: Kendra Pierce on 07-28-2024 HbA1c (Bld) [Mass fraction] 7.3 % High 4.2-6.3 [facility] Discharge Instructionon 06-30 Discharge Instruction Normal [facility] MR/POSTOP.ANEon 07-20-2024 MR/POSTOP.ANE Normal [facility] [id number] 07-20-2024 MR/POSTOPAN2 Normal [facility] Operative Reporton Operative Report Normal [facility] MR/PAT.ANEon 07-16-2024 MR/PAT.ANE Normal [facility] CNCOon 07-14-2024 CNCO Letter Text Normal [facility] CNCO Clinical report posted in error Letter Text Normal [facility] Anion gap in Serum or Plasma Ordered By: Garrison Valadez on 07-07-2024 Anion gap [Moles/Vol] 14 mmol/L 5-15 [facility] BUN/creatinine ratioOrdered By: Garrison Valadez on 07-07-2024 Urea nitrogen/Creatinine [Mass ratio] 7.5 mg/mg Low 10-20 [facility] Basic Metabolic Profile (BMP )on 07-07-2024 BUN/CRE 7.5 RATIO Low 10-20 [facility] Comment on above: Performed By: #### L 500.2500, L100.0500 ####[facility] [address], [address] Calcium [Mass/Vol] 9.1 mg/dL Normal 7.6-11.0 [facility] Comment on above: Performed By: #### L 500.2500, L100.0500 ####[facility] [address] [place], [address] Chloride [Moles/Vol] 99 mmol/L Normal 98-108 [facility] Comment on above: Performed By: #### L 500.2500, L100.0500 ####[facility] [address] [place], [address] CO2 [Moles/Vol] 20.5 mmol/L Low 21.0-32.0 [facility] Comment on above: Performed By: #### L 500.2500, L100.0500 ####[facility] [address] [place], [address] Creatinine [Mass/Vol] 5.67 mg/dL High 0.70-1.20 [facility] Comment on above: Performed By: #### L 500.2500, L100.0500 ####[facility] [address] [place], [address] ECRCL 19.98 ml/min Low 50-250 [facility] Comment on above: Performed By: #### L 500.2500, L100.0500 ####[facility] [address] [place], [address] GAP 14 Normal 5-15 [facility] Comment on above: Performed By: #### L 500.2500, L100.0500 ####[facility] [address] [place], [address] GFR/1.73 sq M.predicted among non-blacks MDRD (S/P/Bld) [Vol rate/Area] 12 mL/min/{1.73_m2} Low >[address] [facility] Comment on above: Result Comment: mL/m in/1.73m2 CKD-EPI Creatinine Equation (2020) Performed By: #### L 500.2500, L100.0500 ####[facility] [address] [place], [address] Glucose [Mass/Vol] 209 mg/dL High 70-99 [facility] Comment on above: Performed By: #### L 500.2500, L100.0500 ####[facility] [address] [place], [address] Potassium [Moles/Vol] 4.3 mmol/L Normal 3.3-5.1 [facility] Comment on above: Performed By: #### L 500.2500, L100.0500 ####[facility] [address] [place], [address] Sodium [Moles/Vol] 134 mmol/L Normal 133-145 [facility] Comment on above: Performed By: #### L 500.2500, L100.0500 ####[facility] [address] [place], [address] Urea nitrogen [Mass/Vol] 43 mg/dL High 4-19 [facility] Comment on above: Performed By: #### L 500.2500, L100.0500 ####[facility] [address] [place], [address] CBC-Complete Blood Cnt No Di ffon 07-07-2024 Erythrocyte distribution width (RBC) [Ratio] 13.7 % Normal 11.6-14.6 [facility] Comment on above: Performed By: #### L 500.2500, L100.0500 ####[facility] [address] [place], [address] Hematocrit (Bld) [Volume fraction] 29.6 % Low 40-54 [facility] Comment on above: Performed By: #### L 500.2500, L100.0500 ####[facility] [address] [place], [address] Hemoglobin (Bld) [Mass/Vol] 10.2 g/dL Low 13.0-16. 5 [facility] Comment on above: Performed By: #### L 500.2500, L100.0500 ####[facility] [address] [place], [address] MCH (RBC) [Entitic mass] 31.1 pg Normal 27.0-32.0 [facility] Comment on above: Performed By: #### L 500.2500, L100.0500 ####[facility] [address] [place], [address] MCHC (RBC) [Mass/Vol] 34.5 g/dL Normal 32-36 [facility] Comment on above: Performed By: #### L 500.2500, L100.0500 ####[facility] [address] [place], [address] MCV (RBC) [Entitic vol] 90.2 fL Normal 80-94 [facility] Comment on above: Performed By: #### L 500.2500, L100.0500 ####[facility] [address] [place], [address] Platelet mean volume (Bld) [Entitic vol] 9.0 fL Normal 6.2-12.0 [facility] Comment on above: Performed By: #### L 500.2500, L100.0500 ####[facility] [address] [place], [address] Platelets (Bld) [#/Vol] 273 10*3/uL Normal 150-450 [facility] Comment on above: Performed By: #### L 500.2500, L100.0500 ####[facility] [address] [place], [address] RBC (Bld) [#/Vol] 3.28 10*6/uL Low 4.6-6.2 [facility] Comment on above: Performed By: #### L 500.2500, L100.0500 ####[facility] [address] [place], [address] RDW SD 44.8 fl High 35.1-43.9 [facility] Comment on above: Performed By: #### L 500.2500, L100.0500 ####[facility] [address] [place], [address] WBC (Bld) [#/Vol] 7.9 10*3/uL Normal 4.4-11.0 [facility] Comment on above: Performed By: #### L 500.2500, L100.0500 ####[facility] [address] [place], [address] Carbon dioxide, total [Moles /volume] in Central venous bloodOrdered By: Garrison Valadez on 07-07-2024 CO2 [Moles/Vol] 20.5 mmol/L Low 21.0-32.0 [facility] Chloride assayOrdered By: Juwan Valadez on 07-07-2024 Chloride [Moles/Vol] 99 mmol/L 98-108 [facility] Erythrocyte distribution wid th (RBC) [Ratio]Ordered By: Garrison Valadez on 07-07-2024 Erythrocyte distribution width (RBC) [Entitic vol] 44.8 fL High 35.1-43.9 [facility] Erythrocyte distribution wid th ratioOrdered By: Garrison Valadez on 07-07-2024 Erythrocyte distribution width (RBC) [Ratio] 13.7 % 11.6-14.6 [facility] Erythrocyte distribution wid th standard deviationOrdered By: Garrison Valadez on 07-07-2024 Erythrocyte distribution width (RBC) [Ratio] 44.8 fl High 35.1-43.9 [facility] Estimation of creatinine jihan aranceOrdered By: Garrison Valadez on 07-07-2024 Estimated Creatinine Clearance Calc 19.98 ml/min Low 50-250 [facility] GFR/1.73 sq M.predicted [place] g non-blacks MDRD (S/P/Bld) [Vol rate/Area]Ordered By: Garrison Valadez on 07-07-2024 Estimated GFR (MDRD) Non-Af Amer 12 Low >60 [facility] Comment on above: mL/min/1.73m2 CKD-EP I Creatinine Equation (2020) Glomerular filtration rate ( GFR) estimation/1.73 sq m using serum, plasma, or whole bOrdered By: Garrison Valadez on 07-07-2024 GFR/1.73 sq M.predicted among non-blacks MDRD (S/P/Bld) [Vol rate/Area] 12 mL/min/{1.73_m2} Low >[address] [facility] Comment on above: mL/min/1.73m2 CKD-EP I Creatinine Equation (2020) Hematocrit Auto (Bld) [Volum e fraction]Ordered By: Garrison Valadez on 07-07-2024 Hematocrit (Bld) [Volume fraction] 29.6 % Low 40-54 [facility] Hemoglobin measurementOrdere d By: Garrison Valadez on 07-07-2024 Hemoglobin (Bld) [Mass/Vol] 10.2 g/dL Low 13.0-16. 5 [facility] MCV (mean corpuscular volume ) determinationOrdered By: Garrison Valadez 07-07-2024 MCV (RBC) [Entitic vol] 90.2 fL 80-94 [facility] Mean corpuscular hemoglobin (MCH) determinationOrdered By: Garrison Valadez 07-07-2024 MCH (RBC) [Entitic mass] 31.1 pg 27.0-32.0 [facility] Mean corpuscular hemoglobin concentration (MCHC) determinationOrdered By: Garrison Valadez on 07-07-2024 MCHC (RBC) [Mass/Vol] 34.5 g/dL 32-36 [facility] Mean platelet volume determi nationOrdered By: Garrison Valadez on 07-07-2024 Platelet mean volume (Bld) [Entitic vol] 9.0 fL 6.2-12.0 [facility] Operative Reporton Operative Report Normal [facility] Platelet countOrdered By: Juwan Valadez on 07-07-2024 Platelets (Bld) [#/Vol] 273 10*3/uL 150-450 [facility] Potassium (Unsp spec) [Mass/ Vol]Ordered By: Garrison Valadez on 07-07-2024 Potassium [Moles/Vol] 4.3 mmol/L 3.3-5.1 [facility] Potassium measurement (mass/ volume)Ordered By: Garrison Valadez on 07-07-2024 Potassium (Unsp spec) [Mass/Vol] 4.3 mmol/L 3.3-5.1 [facility] RBC Auto (Bld) [#/Vol]Ordere d By: Garrison Valadez on 07-07-2024 RBC (Bld) [#/Vol] 3.28 10*6/uL Low 4.6-6.2 [facility] Serum creatinine measurement (mass/volume)Ordered By: Garrison Valadez on 07-07-2024 Creatinine [Mass/Vol] 5.67 mg/dL High 0.70-1.20 [facility] Serum glucose measurement (m ass/volume)Ordered By: Garrison Valadez on 07-07-2024 Glucose [Mass/Vol] 209 mg/dL High 70-99 [facility] Serum or plasma calcium jesise urement (mass/volume)Ordered By: Garrison Valadez on 07-07-2024 Calcium [Mass/Vol] 9.1 mg/dL 7.6-11.0 [facility] Serum or plasma urea nitroge n measurement (mass/volume)Ordered By: Garrison Valadez on 07-07-2024 Urea nitrogen [Mass/Vol] 43 mg/dL High 4-19 [facility] Sodium levelOrdered By: Garrison Valadez on 07-07-2024 Sodium [Moles/Vol] 134 mmol/L 133-145 [facility] White blood cell (WBC) count Ordered By: Garrison Valadez on 07-07-2024 WBC (Bld) [#/Vol] 7.9 10*3/uL 4.4-11.0 [facility] CNCOon 07-02-2024 CNCO Letter Text Normal [facility] KID K/P PANC REC HLA AB SCRN on 06-24-2024 ALLOGEN RESULTS TO FOLLOW See Allogen re port to follow Normal [facility] Comment on above: Order Comment: Speci men Type: BLOOD SPECIMENOrdering Facility: [facility] Address: [address] [place] [address] Performed By: #### K PRHAS ####[facility] [id number] [address] [facility] CNPNon 06-18-2024 CNPN Telephone (INTMWS) LAURIE GONZALES ([id number]) 1980 M Date Time Provider Department 06/18/24 KRISTAL SULLIVAN INTWS During your visit today, we recorded the following information about you: Kim Loving MA 06/18/2024 3:31 PM Signed Type of form: BMV Request for Statement of Physician Form received via walk in When form is completed, Scan form into Epic AND 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 Allergies As of Date: 06/18/2024 Noted Allergy Reaction SEASONAL ALLERGIES 11/17/2014 5 - Intolerance Date Reviewed: 06/15/2024 Reviewed by: Yoselyn Green LPN - Fully Assessed Reason for Visit: Forms [913] Cmt: BMV Request for Statement of Physician Prescriptions as of 06/23/2024 - DEXCOM G6 SENSOR aiden USE 1 SENSOR EVERY 10 DAYS DIRECTED - OMNIPOD 5 G6-G7 PODS, GEN 5, crtg - sevelamer carbonate (RENVELA) 800 mg tablet Take 800 mg by mouth three times a day with meals. - metoprolol succinate ER (TOPROL XL) 25 mg 24 hr tablet Take 1 tablet by mouth once daily. - amLODIPine (NORVASC) 5 mg tablet Take 1 tablet by mouth once daily. - Acetone, Urine, Test (KETONE URINE TEST) 1 Strip as directed. DX E10.65 E10.3599 - blood sugar diagnostic (FREESTYLE LITE STRIPS) test strip Test blood sugar 10 times daily . Dx. E10.3599 E10.65, Insulin: yes - MEDICAL SUPPLY Blood pressure machine - Nut.Tx.Gluc.Intol,La c-Free,Soy (GLUCERNA SHAKE) liqd DRINK 1 BOTTLE (237ML) twice a day - Cholecalciferol, Vitamin D3, 125 mcg (5,000 [...] 4 tablets by mouth as needed. - alcohol swabs padm APPLY TO AFFECTED AREA FIVE TIMES DAILY - Insulin Triangle, Disposable, (BD ULTRA-FINE CAROL PEN NEEDLE) 32 gauge x 32 ndle Use one needle for each dose. 7/day. - Zn Acetate-Meadowsweet- [place] (AMERIGEL) gel Apply 1 application to affected area twice daily. 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] ALLERGIC RHINITIS [...] Essential hypertension [I10] 12/01/2020 Encounter Status:Closed by VIANEY ROMO on 06/23/24 Normal [facility] MR/BMS.BVSon 06-17-2024 MR/BMS.BVS Normal [facility] CBC panel Auto (Bld)on 06-15 Erythrocyte distribution width (RBC) [Ratio] 13.3 % Normal 11.5-15.0 [facility] Comment on above: Order Comment: Speci men Type: BLOOD SPECIMENOrdering Facility: [facility] Address: [address] [place] [address] Performed By: #### 5 8410-2 ####[facility] [id number] [place] [address] [place] Hematocrit (Bld) [Volume fraction] 35.0 % Low 39.0-51.0 [facility] Comment on above: Order Comment: Speci men Type: BLOOD SPECIMENOrdering Facility: [facility] Address: [address] [place] [address] Performed By: #### 5 8410-2 ####[facility] [id number] [place] [address] [place] Hemoglobin (Bld) [Mass/Vol] 12.0 g/dL Low 13.0-17. 0 [facility] Comment on above: Order Comment: Speci men Type: BLOOD SPECIMENOrdering Facility: [facility] Address: [address] [place] [address] Performed By: #### 5 8410-2 ####[facility]IA [id number] [place] [address] [place] MCH (RBC) [Entitic mass] 30.2 pg Normal 26.0-34.0 [facility] Comment on above: Order Comment: Speci men Type: BLOOD SPECIMENOrdering Facility: [facility] Address: [address] [place] [address] Performed By: #### 5 8410-2 ####[facility] [id number] [place] [address] [place] MCHC (RBC) [Mass/Vol] 34.3 g/dL Normal 30.5-36.0 [facility] Comment on above: Order Comment: Speci men Type: BLOOD SPECIMENOrdering Facility: [facility] Address: [address] [place] [address] Performed By: #### 5 8410-2 ####[facility] [id number] [place] [address] [place] MCV (RBC) [Entitic vol] 87.9 fL Normal 80.0-100.0 [facility] Comment on above: Order Comment: Speci men Type: BLOOD SPECIMENOrdering Facility: [facility] Address: [address] [place] [address] Performed By: #### 5 8410-2 ####[facility] [id number] [place] [address] [place] Nucleated RBC (Bld) [#/Vol] 10*3/uL Normal <0.01 [facility] Comment on above: Order Comment: Speci men Type: BLOOD SPECIMENOrdering Facility: [facility] Address: [address] [place] [address] Performed By: #### 5 8410-2 ####[facility] [id number] [place] [id number] [place] Platelet mean volume (Bld) [Entitic vol] 9.3 fL Normal 9.0-12.7 [facility] Comment on above: Order Comment: Speci men Type: BLOOD SPECIMENOrdering Facility: [facility] Address: [address] [place] [address] Performed By: #### 5 8410-2 ####[facility] [id number] [place] [address] [place] Platelets (Bld) [#/Vol] 290 10*3/uL Normal 150-400 [facility] Comment on above: Order Comment: Speci men Type: BLOOD SPECIMENOrdering Facility: [facility] Address: [address] [place] [address] Performed By: #### 5 8410-2 ####[facility] [id number] [place] [address] [place] RBC (Bld) [#/Vol] 3.98 10*6/uL Low 4.20-6.00 [facility] Comment on above: Order Comment: Speci men Type: BLOOD SPECIMENOrdering Facility: [facility] Address: [address] [place] [address] Performed By: #### 5 8410-2 ####[facility] [id number] [place] [address] [place] WBC (Bld) [#/Vol] 8.75 10*3/uL Normal 3.70-11.00 [facility] Comment on above: Order Comment: Speci men Type: BLOOD SPECIMENOrdering Facility: [facility] Address: [address] [place] [address] Performed By: #### 5 8410-2 ####[facility] [id number] [place] [id number] [place] CNOVon 06-15-2024 CNOV Office Visit (INTMWS) LAURIE GONZALES ([id number]) 1980 M Date Time Provider Department 06/15/24 1:00 PM KRISTAL SULLIVAN INTDominickWS During your visit today, we recorded the following information about you: Pulse Blood pressure Weight Height 90/minute 118/66 91.6 kg 1.8 m Kristal Sullivan MD 06/15/2024 5:34 PM Signed Reason for Visit Laurie is a 43-year-old male with a history of type 1 diabetes, CKD, and CAD, presenting for follow-up. HPI Type 1 Diabetes: - Managed with Omnipod insulin pump and CGM. - Under the care of Dr. Ko, seen every 3 months. - Denies changes in foot sensation; feet checked daily at dialysis. CKD: - On dialysis every 3 days for 6 hours. - Reports high phosphorus levels; started on sevelamer a few weeks ago. - Experiences significant weight gain between dialysis sessions; reports constant hunger and thirst. - Discussed Mg and Cliff with OCCUPATIONAL THERAPY INSTRUCTOR for appetite control. - On kidney and pancreas transplant list with [facility]. - Taking vitamin D, increased to 3 pills daily. CAD: - HI in March, with stent placement in LAD. - Reports nausea, weakness, and difficulty walking during HI. - Underwent stress test post-HI. - Taking aspirin daily. - On metoprolol succinate 25 mg daily and amlodipine. - Stopped lisinopril due to lack of refills. Pulmonary Edema: - Developed pulmonary edema post-HI, requiring BiPAP for a week. - Denies current asthma symptoms; not taking montelukast. Weight Management: - Current weight 202 lbs, down from 211 lbs. - Reports weight fluctuations due to fluid retention and dialysis. 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 - Enjoys outdoor activities like fishing and riding a 4-vick. - Describes self as lazy and does not engage in regular exercise. - Sleeps well and denies significant stress. 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 Social History Tobacco Use Smoking status: Never Smokeless tobacco: Never Substance Use Topics Alcohol use: No Drug use: No Past medical history, appointments, medications, allergies reviewed. Pertinent Lab/Diagnostic Studies are reviewed and discussed today Current Outpatient Medications: DEXCOM G6 SENSOR aiden OMNIPOD 5 G6-G7 PODS, GEN 5, crtg sevelamer carbonate (RENVELA) 800 mg tablet Acetone, Urine, Test (KETONE URINE TEST) blood sugar diagnostic (FREESTYLE LITE STRIPS) test strip MEDICAL SUPPLY [facility].Tx.Gluc.Intol,La c-Free,Soy (GLUCERNA SHAKE) liqd rosuvastatin (CRESTOR) 20 mg tablet insulin aspart U-100 (NOVOLOG FLEXPEN U-100 INSULIN) 100 unit/mL (3 mL) alcohol swabs padm Insulin Triangle, Disposable, (BD ULTRA-FINE CAROL PEN NEEDLE) 32 gauge x 5/32 ndle Zn Acetate-Meadowsweet- [place] (AMERIGEL) gel metoprolol succinate ER (TOPROL XL) 25 mg 24 hr tablet amLODIPine (NORVASC) 5 mg tablet Cholecalciferol, Vitamin D3, 125 mcg (5,000 unit) cap insulin glargine (LANTUS SOLOSTAR, BASAGLAR KWIKPEN) 100 unit/mL (3 mL) glucose 4 gram chewable tablet lancets (FREESTYLE LANCETS) 28 gauge [facility] Maintenance Depression Screening Anxiety Screening BP Controlled (<130/80) Pneumococcal Vaccine(2 of 2 - PCV) DTaP,Tdap,Td Vaccine(1 - Tdap) Dilated Retinal Exam Diabetic Foot Exam LDL Cholesterol Annual PCP Team Chronic Disease Visit HbA1C Influenza Vaccine(1) Covid-19 Vaccine( season)@ Review Of Systems Constitutional: (+) fatigue Musculoskeletal: (+) foot pain Skin: (+) itching Endocrine: (+) increased thirst, (+) increased hunger Physical Exam BP 118/66 Pulse 90 Ht 180 cm (5' 10.87) Wt 91.6 kg (202 lb) SpO2 97% BMI 28.28 kg/m? GENERAL: NAD, alert and oriented. SKIN: Unremarkable, no rash or skin lesions. HEAD: Normocephalic. EYES: PERRLA, EOMI, conjunctiva clear. EARS: External ears normal, canals clear, TM's normal. NOSE/SINUSES: Nares normal. Septum midline. OROPHARYNX: Lips, mucosa, and tongue normal, good dentition. No oral lesions noted. NECK: Supple, no lymphadenopathy, normal thyroid, no carotid bruits. LUNGS: Clear to auscultation bilaterally, no wheezes/rhonchi/rale s. HEART: Regular rate and rhythm, no murmurs. No ectopy. EXTREMITIES: Normal, no deformities, no skin discoloration, no edema. NEURO: Awake, alert and oriented x3, cranial nerves II-XII grossly intact, normal gait, no involuntary motions. Labs: - Serum phosphorus: Elevated Tests: - Stress test: No specific results discussed Imaging: - Ultrasound (Arteriovenous fistula): Multiple branches noted, including one branch that rejoined the same vein, potentially contributing to inadequate clearance during dialysis Assessment and Plan 1. Annual physical exam (Z00.00) - Completed comprehensive (more content not included)... Normal [facility] Comprehensive metabolic 2000 panelon 06-15-2024 Albumin [Mass/Vol] 4.5 g/dL Normal 3.9-4.9 [facility] Comment on above: Order Comment: Bam merritt Type: BLOOD SPECIMEN [facility] Address: [address] [place] [address] Performed By: #### 2 4331-1, 3015-3, 00305-2 #### [facility] CLIA [id number] [address] [place] [address] [place] ALP [Catalytic activity/Vol] 95 U/L Normal 38-113 [facility] Comment on above: Order Comment: Bam merritt Type: BLOOD SPECIMEN [facility] Address: [address] [place] [address] Performed By: #### 2 4331-1, 6-3, 04777-6 #### [facility] CLIA [id number] [address] [place] [address] [place] ALT [Catalytic activity/Vol] 21 U/L Normal 10-54 [facility] Comment on above: Order Comment: Speci men Type: BLOOD SPECIMEN [facility] Address: [address] [place] [address] Performed By: #### 2 4331-1, 3, #### [facility] CLIA [id number] [address] [place] [address] [place] Anion gap [Moles/Vol] 12 mmol/L Normal 8-15 [facility] Comment on above: Order Comment: Speci men Type: BLOOD SPECIMEN [facility] Address: [address] [place] [address] Performed By: #### 2 4331-1, 3015-05, #### [facility] CLIA [id number] [address] [place] [address] [place] AST [Catalytic activity/Vol] 48 U/L High 14-40 [facility] Comment on above: Order Comment: Speci men Type: BLOOD SPECIMEN [facility] Address: [address] [place] [address] Performed By: #### 2 4331-1, 3015-05, #### [facility] CLIA [id number] [address] [place] [address] [place] Bilirubin [Mass/Vol] 0.4 mg/dL Normal 0.2-1.3 [facility] Comment on above: Order Comment: Speci men Type: BLOOD SPECIMEN [facility] Address: [address] [place], [place] [address] Performed By: #### 2 4331-1, 3015-05, #### [facility] CLIA [id number] [address] [place], [place] [id number] [place] Calcium [Mass/Vol] 10.1 mg/dL Normal 8.5-10.2 [facility] Comment on above: Order Comment: Speci men Type: BLOOD SPECIMEN [facility] Address: [address] [place] [address] Performed By: #### 2 4331-1, 3015-3, #### [facility] CLIA [id number] [address] [place], [place] [id number] [place] Chloride [Moles/Vol] 97 mmol/L Low 98-107 [facility] Comment on above: Order Comment: Speci men Type: BLOOD SPECIMEN [facility] Address: [address] [place] [address] Performed By: #### 2 4331-1, 3, #### [facility] CLIA [id number] [address] [place] [address] [place] CO2 [Moles/Vol] 27 mmol/L Normal 22-30 [facility] Comment on above: Order Comment: Speci men Type: BLOOD SPECIMEN [facility] Address: [address] [place] [address] Performed By: #### 2 4331-1, 3, #### [facility] CLIA [id number] [address] [place] [address] [place] Creatinine [Mass/Vol] 4.89 mg/dL High 0.73-1.22 [facility] Comment on above: Order Comment: Speci men Type: BLOOD SPECIMEN [facility] Address: [address] [place] [address] Performed By: #### 2 4331-1, 3, 14373-2 #### [facility] CLIA [id number] [address] [place] [address] [place] Creatinine and Glomerular filtration rate.predicted panel (S/P/Bld) 14 mL/min/1.73m??? Low >=60 [facility] Comment on above: Order Comment: Speci men Type: BLOOD SPECIMEN [facility] Address: [address] [place] [address] Result Comment: Destinee mated Glomerular Filtration Rate (eGFR) is calculated using the 2020 CKD-EPI creatinine equation. This equation utilizes serum creatinine, sex, and age as parameters. The creatinine assay has traceable calibration to isotope dilution-mass spectrometry. Refer to KDIGO guidelines for clinical interpretation. In patients with unstable renal function, e.g. those with acute kidney injury, the eGFR may not accurately reflect actual GFR. Performed By: #### 2 4331-1, 6-3, 95534-0 #### [facility] CLIA [id number] [address] [place] [address] [place] Glucose [Mass/Vol] 167 mg/dL High 74-99 [facility] Comment on above: Order Comment: Bam merritt Type: BLOOD SPECIMEN [facility] Address: [address] [place] [address] Result Comment: The [place] Diabetes Association (ADA) provides guidance for cutoff values for fasting glucose and random glucose. The ADA defines fasting as no caloric intake for at least 8 hours. Fasting plasma glucose results between 100 to 125 mg/dL indicate increased risk for diabetes (prediabetes). Fasting plasma glucose results greater than or equal to 126 mg/dL meet the criteria for diagnosis of diabetes. In the absence of unequivocal hyperglycemia, results should be confirmed by repeat testing. In a patient with classic symptoms of hyperglycemia or hyperglycemic crisis, random plasma glucose results greater than or equal to 200 mg/dL meet the criteria for diagnosis of diabetes. Reference: Standards of Medical Care in Diabetes 2016, [place] Diabetes Association. Diabetes Care. 2016.39(Suppl 1). Performed By: #### 2 4331-1, 6-3, #### [facility] CLIA [id number] [address] [place] [address] [place] Potassium [Moles/Vol] 4.9 mmol/L Normal 3.7-5.1 [facility] Comment on above: Order Comment: Bam merritt Type: BLOOD SPECIMEN Ordering Facility: [facility] Address: [address] [place] [address] Performed By: #### 2 4331-1, 3016-3, 19107-1 #### [facility] CLIA [id number] [address] [place] [address] [place] Protein [Mass/Vol] 7.3 g/dL Normal 6.3-8.0 [facility] Comment on above: Order Comment: Speci men Type: BLOOD SPECIMEN Ordering Facility: [facility] Address: [address] [place] [address] Performed By: #### 2 4331-1, 3015-3, 76391-6 #### [facility] CLIA [id number] [address] [place] [address] [place] Sodium [Moles/Vol] 136 mmol/L Normal 136-144 [facility] Comment on above: Order Comment: Speci men Type: BLOOD SPECIMEN Ordering Facility: [facility] Address: [address] [place] [address] Performed By: #### 2 4331-1, 3015-3, 01187-3 #### [facility] CLIA [id number] [address] [place] [address] [place] Urea nitrogen [Mass/Vol] 35 mg/dL High 9-24 [facility] Comment on above: Order Comment: Speci men Type: BLOOD SPECIMEN Ordering Facility: [facility] Address: [address] [place] [address] Performed By: #### 2 4331-1, 3015-3, 23129-4 #### [facility] CLIA [id number] [address] [place] [address] [place] HbA1c (Bld)on 06-15-2024 Average glucose Estimated from glycated hemoglobin (Bld) [Mass/Vol] 206 mg/dL Normal [facility] Comment on above: Order Comment: Speci men Type: BLOOD SPECIMENOrdering Facility: [facility] Address: [address] [place] [address] Result Comment: eAG: (Estimated average glucose) is a calculated value from HgbA1c and is sales representative of the average blood glucose level in the last 2-3 month period. Performed By: #### 5 5454-3 ####[facility] [id number] [place] [address] [place] HbA1c (Bld) [Mass fraction] 8.8 % High 4.3-5.6 [facility] Comment on above: Order Comment: Bam merritt Type: BLOOD SPECIMENOrdering Facility: [facility] Address: [address] [place] [address] Result Comment: Amer ican Diabetes Association guidelines indicate that patients with HgbA1c in the range 5.7-6.4% are at increased risk for development of diabetes, and intervention by lifestyle modification may be beneficial. HgbA1c greater or equal to 6.5% is considered diagnostic of diabetes. Performed By: #### 5 5454-3 ####[facility] [id number] [place] [address] [place] Lipid 1996 panelon 5 Cholesterol [Mass/Vol] 166 mg/dL Normal <200 [facility] Comment on above: Order Comment: Bam merritt Type: BLOOD SPECIMEN Ordering Facility: [facility] Address: [address] [place] [address] Result Comment: <200 mg/dL, Desirable 200-239 mg/dL, Borderline high >239 mg/dL, High Performed By: #### 2 4331-1, 3016-3, 16993-4 #### [facility] CLIA [id number] [address] [place] [address] [place] Cholesterol in HDL [Mass/Vol] 60 mg/dL Normal >39 [facility] Comment on above: Order Comment: Bam merritt Type: BLOOD SPECIMEN Ordering Facility: [facility] Address: [address] [place] [address] Result Comment: 40-5 9 mg/dL, Acceptable >59 mg/dL, High: Negative risk factor for coronary heart disease <40 mg/dL, Low: Positive risk factor for coronary heart disease Performed By: #### 2 4331-1, 3015-3, #### [facility] CLIA [id number] [address] [place] [address] [place] Cholesterol in LDL [Mass/Vol] 87 mg/dL Normal <100 [facility] Comment on above: Order Comment: Bam merritt Type: BLOOD SPECIMEN Ordering Facility: [facility] Address: [address] [place] [address] Result Comment: <100 mg/dL, Optimal 100-129 mg/dL, Near optimal/above optimal 130-159 mg/dL, Borderline high 160-189 mg/dL, High >189 mg/dL, Very high Secondary prevention optimal LDL Cholesterol levels are recommended to be < 70 mg/dL Performed By: #### 2 4331-1, 3015-3, #### [facility] CLIA [id number] [address] [place] [address] [place] Cholesterol in LDL/Cholesterol in HDL [Mass ratio] 1.45 {ratio} Normal <2.54 [facility] Comment on above: Order Comment: Bam merritt Type: BLOOD SPECIMEN Ordering Facility: [facility] Address: [address] [place] [address] Result Comment: Refe rence: 1. National Cholesterol Education Program ATP III Guideline At-A-Glance Quick Desk Reference: National Heart, Lung, and Blood [place]. National Institutes of Health. 2001: NIH Publication No. 01-3305. 2. An International Atherosclerosis Society position paper: global recommendations for the management of dyslipidemia: executive summary, Atherosclerosis. 2014: 232(2):410-413. Performed By: #### 2 4331-1, 3015-3, #### [facility] CLIA [id number] [address] [place] [address] [place] Cholesterol in VLDL [Mass/Vol] 19 mg/dL Normal <30 [facility] Comment on above: Order Comment: Bam merritt Type: BLOOD SPECIMEN Ordering Facility: [facility] Address: [address] [place] [address] Performed By: #### 2 4331-1, 3015-05, #### [facility] CLIA [id number] [address] [place] [address] [place] Cholesterol non HDL [Mass/Vol] 106 mg/dL Normal <130 [facility] Comment on above: Order Comment: Speci men Type: BLOOD SPECIMEN Ordering Facility: [facility] Address: [address] [place], [place] [address] Result Comment: <130 mg/dL, Optimal 130-159 mg/dL, Near optimal/above optimal 160-189 mg/dL, Borderline high 190-219 mg/dL, High >219 mg/dL, Very high Secondary prevention optimal non HDL Cholesterol levels are recommended to be <100 mg/dL Performed By: #### 2 4331-1, 3015-05, #### [facility] CLIA [id number] [address] [place] [address] [place] Cholesterol.total/Cholester ol in HDL [Mass ratio] 2.77 {ratio} Normal <5.10 [facility] Comment on above: Order Comment: Speci men Type: BLOOD SPECIMEN Ordering Facility: [facility] Address: [address] [place], [place] [address] Performed By: #### 2 4331-1, 3015-05, #### [facility] CLIA [id number] [address] [place] [address] [place] FASTING TIME 12 hrs Normal [facility] Comment on above: Order Comment: Speci men Type: BLOOD SPECIMEN Ordering Facility: [facility] Address: [address] [place], [place] [address] Performed By: #### 2 4331-1, 3015-05, #### [facility] CLIA [id number] [address] [place] [address] [place] Triglyceride [Mass/Vol] 96 mg/dL Normal <150 [facility] Comment on above: Order Comment: Speci men Type: BLOOD SPECIMEN Ordering Facility: [facility] Address: [address] [place] [address] Result Comment: <150 mg/dL, Normal 150-199 mg/dL, Borderline high 200-499 mg/dL, High >499 mg/dL, Very high Performed By: #### 2 4331-1, 3016-3, 19838-4 #### [facility] CLIA [id number] [address] [place] [address] [place] TSH SerPl-aCncon 06-15-2024 TSH Qn 1.830 m[IU]/L Normal 0.270-4.200 [facility] Comment on above: Order Comment: Speci men Type: BLOOD SPECIMEN Ordering Facility: [facility] Address: [address] [place] [address] Performed By: #### 2 4331-1, 3016-3, 78724-3 #### [facility] CLIA [id number] [address] [place] [address] [place] AV Fistula/Dialysis Graft Sc anon 06-10-2024 AV Fistula/Dialysis Graft Scan Normal [facility] Arterial study reportOrdered By: Garrison Valadez on 06-10-2024 Noninvasive arteriosclerosis study report [facility] [address] [place] [address] AV Fistula/Dialysis Graft Scan 06/10/24 1303 MR#: [id number] Acct: [id number] Name: LAURIE GONZALES Rep #:[id number] : 1980 43 From: Garrison Ricketts Attending Dr: LUCÍA Mcdermott Stat us: REG CLI Ordering Dr: Thalia Lea Date: Location: [facility] Sex: M C Admitted: Reason For Study Reason For Study: Radiocephalic AVF LEFT Inflow, 44.1/19.5 cm/s. Inflow, 8.1 ml/min. Anastamosis, 597.5/328.6 cm/s. Anastamosis, 740.3 ml/min. Prox Cephalic AVF, 30.2/14.5 cm/s. Prox Cephalic AVF, 109.4 ml/min. MidCephalic AVF, 35.4/14.5 cm/s. MidCephalic AVF, 79.6 ml/min. Dist Cephalic AVF, 31.9/11.9 cm/s. Dist Cephalic AVF, 73.1 ml/min. Outflow, no flow visualized. Multiple branches noted along fistula in midforearm. 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 Kristal Sullivan MD ~ Date Dictated: 06/10/24 1303 Date Transcribed: 06/10/241833 Imcu Specialist: Signed [facility] Work Phone: Dian 05-25-2024 EMANI Telephone (TXCTGL) CHRISTIAN,LAURIE M ([id number]) 1980 M Date Time Provider Department 05/25/24 CIARRA CATALAN TXCTGL During your visit today, we recorded the following information about you: Ciarra Catalan LISW 05/25/2024 3:20 PM Signed ADITHYA called pt in preparation of selection committee. SW reminded pt that his primary and backup support still needs to be verified. ADITHYA requested that they contact SW as soon as possible to verify their commitment. SW informed pt that verification is the only thing that is needed before he is presented to the committee. Pt verbalized understanding. SW will await phone calls. Ciarra Catalan LISW 05/25/2024 3:24 PM Signed ADITHYA received a phone call from pt's mother Page ([phone]) regarding support. ADITHYA reviewed the follow up care sequence, including lab work twice a week and twice a week post transplant clinic appointments. ADITHYA also discussed the need to have a caregiver [employer] for 2 weeks post transplant. Page reports being 66yrs old and she is retired. Page stated she is available whenever needed to assist with caregiver / transportation support. Page verified her commitment to help pt post transplant. WILBUR Andrews Transplant Family Assistant Ciarra Catalan LISW 05/27/2024 1:53 PM Signed ADITHYA returned phone call from pt's ex- Ira ([phone]) regarding support. Ira disclosed that her and the pt have been back together for several years and they reside in the same home. ADITHYA reviewed the follow up care sequence, including lab work twice a week and twice a week post transplant clinic appointments. ADITHYA also discussed the need to have a caregiver [employer] for 2 weeks post transplant. Ira verbalized understanding. Ira stated she is a traveling RN and she would be able to assist with support before and after work. Ira stated while she is working the pt's mother will be at their home in order to assist with support. Ira reports they will work in shifts in order to ensure [employer] support. Ira verified her commitment to help pt post transplant. WILBUR Andrews Transplant Family Assistant Allergies As of Date: 05/25/2024 Noted Allergy Reaction SEASONAL ALLERGIES 11/17/2014 5 - Intolerance Date Reviewed: 04/12/2024 Reviewed by: Ira Osorio, RT(R) - Partially Assessed Reason for Visit: Follow Up [171] Prescriptions as of 05/27/2024 - Acetone, Urine, Test (KETONE URINE TEST) 1 Strip as directed. DX E10.65 E10.3599 - blood sugar diagnostic (FREESTYLE LITE STRIPS) test strip Test blood sugar 10 times daily . Dx. E10.3599 E10.65, Insulin: yes - MEDICAL SUPPLY Blood pressure machine - carvedilol (COREG) 12.5 mg tablet Take 1 tablet by mouth twice daily. - lisinopril (ZESTRIL, PRINIVIL) 40 mg tablet Take 1 tablet by mouth once daily. - Nut.Tx.Gluc.Intol,La c-Free,Soy (GLUCERNA SHAKE) liqd DRINK 1 BOTTLE (237ML) [...] 4 tablets by mouth as needed. - Ketone Blood Test (PRECISION XTRA B-KETONE) [...] AFFECTED AREA FIVE TIMES DAILY - Insulin Triangle, Disposable, (BD ULTRA-FINE CAROL PEN NEEDLE) 32 gauge x 5/32 ndle Use one needle for each dose. 7/day. - Zn Acetate-Meadowsweet- [place] (AMERIGEL) gel Apply 1 application to affected area twice daily. - lancets (FREESTYLE LANCETS) 28 gauge misc Test blood sugar four times daily 250.00 - sildenafil (VIAGRA) 100 mg tablet Take 0.5 tablets by mouth as needed. Take 30 to 60min before sexual activity Problem List As Of Date 05/25/2024 Noted Resolved DEVELOPMENTAL DYSLEXIA [F81.0] ALLERGIC RHINITIS NOS [J30.9] 03/13/2006 Type 1 diabetes mellitus with hyperosmolarity w*03/13/2006 PAIN IN JOINT, LOWER LEG [M25.569] 03/13/2006 CERVICALGIA [M54.2] 03/13/2006 Mixed hyperlipidemia [E78.2] 03/13/2006 GERD (gastroesophageal reflux disease) [K21.9] 11/17/2014 Non morbid obesity due to (more content not included)... Normal [facility] CNPGloria 04-29-2024 CNPN Telephone (TXCTGL) LAURIE GONZALES ([id number]) 1980 Date Time Provider Department 04/29/24 CIARRA CATALAN TXCTGL During your visit today, we recorded the following information about you: Ciarra Catalan LISW 04/29/2024 10:50 AM Signed ADITHYA called pt in preparation of selection committee. SW reminded pt that both his primary and backup support needs to be verified. SW requested that they contact SW to verify their commitment. Pt verbalized understanding. ADITHYA will await phone calls. JUSTIN Andrews-S Transplant Family Assistant Allergies As of Date: 04/29/2024 Noted Allergy Reaction SEASONAL ALLERGIES 11/17/2014 5 - Intolerance Date Reviewed: 04/12/2024 Reviewed by: Ira Osorio, RT(R) - Partially Assessed Reason for Visit: Follow Up [171] Prescriptions as of 04/29/2024 - Acetone, Urine, Test (KETONE URINE TEST) 1 Strip as directed. DX E10.65 E10.3599 - blood sugar diagnostic (FREESTYLE LITE STRIPS) test strip Test blood sugar 10 times daily . Dx. E10.3599 E10.65, Insulin: yes - MEDICAL SUPPLY Blood pressure machine - carvedilol (COREG) 12.5 mg tablet Take 1 tablet by mouth twice daily. - lisinopril (ZESTRIL, PRINIVIL) 40 mg tablet Take 1 tablet by mouth once daily. - Nut.Tx.Gluc.Intol,La c-Free,Soy (GLUCERNA SHAKE) liqd DRINK 1 BOTTLE (237ML) [...] 4 tablets by mouth as needed. - Ketone Blood Test (PRECISION XTRA B-KETONE) [...] AFFECTED AREA FIVE TIMES DAILY - Insulin Triangle, Disposable, (BD ULTRA-FINE CAROL PEN NEEDLE) 32 gauge x 5/32 ndle Use one needle for each dose. 7/day. - Zn Acetate-Meadowsweet- [place] (AMERIGEL) gel Apply 1 application to affected area twice daily. - lancets (FREESTYLE LANCETS) 28 gauge misc Test blood sugar four times daily 250.00 - sildenafil (VIAGRA) 100 mg tablet Take 0.5 tablets by mouth as needed. Take 30 to 60min before sexual activity Problem List As Of Date 04/29/2024 Noted Resolved DEVELOPMENTAL DYSLEXIA [F81.0] ALLERGIC RHINITIS [...] Essential hypertension [I10] 12/01/2020 Encounter Status:Closed by CIARRA CATALAN on 04/29/24 Normal [facility] MR/BMS.BVSon 04-22-2024 MR/BMS.BVS Normal [facility] Bedside Glucoseon 04-21-2024 FINGERSTICK GLU 112 mg/dL High 74-106 [facility] Comment on above: Result Comment: EDUARDO GEMENT OF PATIENT CARE PER NURSING PROTOCOL Performed By: #### L 501.080 ####[facility] [id number] [place], [place], [address] Bedside Glucoseon 04-20-2024 FINGERSTICK GLU 188 mg/dL High 74-106 [facility] Comment on above: Result Comment: EDUARDO GEMENT OF PATIENT CARE PER NURSING PROTOCOL Performed By: #### L 501.080 ####[facility] [id number] [place], [place], [id number] Emergency Department Summary on 04-20-2024 Emergency Department Summary Normal [facility] deOrdered By: Kristi Murillo on 04-20-2024 Bedside Glucose ([facility] Panel) 188 mg/dL High 74-106 [facility] Comment on above: MANAGEMENT OF PATIEN T CARE PER NURSING PROTOCOL Glucose [Mass/Vol] 188 mg/dL High 74-106 [facility] Comment on above: MANAGEMENT OF PATIEN T CARE PER NURSING PROTOCOL CNNURSEon 04-12-2024 CNNURSE Nurse Visit (CARDWS) LAURIE GONZALES ([id number]) 1980 M Date Time Provider Department 04/12/24 9:45 AM [facility] During your visit today, we recorded the following information about you: Referring Provider: RONEN ELDRIDGE [[id number]] Allergies As of Date: 04/12/2024 Noted Allergy Reaction SEASONAL ALLERGIES 11/17/2014 5 - Intolerance Date Reviewed: 04/12/2024 Reviewed by: Ira Osorio, RT(R) - Partially Assessed Visit Diagnosis:Encounter for other preprocedural examination [Z01.818] Order(s):[] regadenoson 0.4 mg injection (LEXISCAN)Disp: Rfl: Prescriptions as of 04/13/2024 - Acetone, Urine, Test (KETONE URINE TEST) 1 Strip as directed. DX E10.65 E10.3599 - blood sugar diagnostic (FREESTYLE LITE STRIPS) test strip Test blood sugar 10 times daily . Dx. E10.3599 E10.65, Insulin: yes - MEDICAL SUPPLY Blood pressure machine - carvedilol (COREG) 12.5 mg tablet Take 1 tablet by mouth twice daily. - lisinopril (ZESTRIL, PRINIVIL) 40 mg tablet Take 1 tablet by mouth once daily. - Nut.Tx.Gluc.Intol,La c-Free,Soy (GLUCERNA SHAKE) liqd DRINK 1 BOTTLE (237ML) [...] 4 tablets by mouth as needed. - Ketone Blood Test ([employer] XTRA B-KETONE) strp Test KETONES as directed. [...] AFFECTED AREA FIVE TIMES DAILY - Insulin Triangle, Disposable, (BD ULTRA-FINE CAROL PEN NEEDLE) 32 gauge x 5/32 ndle Use one needle for each dose. 7/day. - Zn Acetate-Meadowsweet- [place] (AMERIGEL) gel Apply 1 application to affected area twice daily. - lancets (FREESTYLE LANCETS) 28 gauge misc Test blood sugar four times daily 250.00 - sildenafil (VIAGRA) 100 mg tablet Take 0.5 tablets by mouth as needed. Take 30 to 60min before sexual activity Problem List As Of Date 04/12/2024 Noted Resolved DEVELOPMENTAL DYSLEXIA [F81.0] ALLERGIC RHINITIS [...] Hypoglycemia [E16.2] 07/17/2018 Essential hypertension [I10] 12/01/2020 Prescriptions ordered this encounter Disp Refills Start End REGADENOSON 0.4 MG/5 ML INTRAVENOUS * 04/12/2024 04/12/2024 Route: INTRAVENOUS Cosign accepted by RONEN ELDRIDGE[[id number]] on 04/12/2024 11:21 AM Encounter Status:Closed by WILLIE GONZALEZ on 04/13/[address] [facility] CARDIAC PERF STRESS/PHARM on 04-12-2024 NM CARDIAC PERF STRESS/PHARM * * *Final Report* * * DATE OF EXAM: Apr 12 2024 10:35AM [address] CARDIAC PERF STRESS/PHARM / PROCEDURE REASON: Encounter for other preprocedural examination * * * * Physician Interpretation * * * * Stress Cutter Brake Lining Report: [facility] Date of service: 04/12/2024 7:27:59 AM Supervising physician: Venkata García MD PATIENT: Name: MR. LAURIE GONZALES Age: 43 years Gender: M The supervising physician was in the department and immediately available. * * * Final * * * PATIENT: Name: MR. LAURIE GONZALES Age: 43 years Gender: M CONCLUSIONS: 1. SPECT Perfusion Study: Normal. 2. There is no scintigraphic evidence for inducible ischemia, as described. 3. There is no scarred myocardium. 4. Left ventricle is normal in size. The left ventricle systolic function is normal. 5. Right ventricle is normal in size. The right ventricle systolic function is normal. 6. This is a low risk scan. Gated Stress FBP LVEF % 67 Prior Study Comparison No prior nuclear cardiology exam available for comparison. Nuclear Med Report:1-Day Gated SPECT Myocardial Perfusion with Regadenoson Stress: Myocardial perfusion imaging was performed at rest 30 minutes following the IV injection of the radiotracer. The patient received 0.4 mg of regadenoson, via rapid IV push, immediately followed by radiotracer IV. Gated post stress tomographic imaging was performed 30 to 60 minutes later. See administered radiotracer and doses below. [facility] Date of service: 04/12/2024 7:27:59 AM Ordering Physician: RONEN ELDRIDGE. Requesting Physician: RONEN ELDRIDGE Indication: Assessment for suspected CAD and CP - ECG uniterpretable OR unable to exercise Interpreting physician: Pipo Gotti MD Height: 180.34 cm BSA: 2.19 m? Weight: 95.71 kg BMI: 29.4 kg/m? Imaging Protocol Limitation Reason Patient motion and Diaphragmatic attenuation. Exam Type: Rest Stress Radiopharm: Tc-99m Tetrofosmin Tc-99m Tetrofosmin Dosage(mCi): 14.2 34.8 Stress Agent: Regadenoson 0.4mg Supply provided from [facility] Resting Blood Press: 128/82 mmHg Image Quality The overall study imaging quality was deemed to be fair. The following technical issues were noted: Patient motion and Diaphragmatic attenuation. FINDINGS: Left Ventricle Wall Motion: Stress IR:3D - All segments are normal. Rest IR:3D - Gated Stress FBP - Reversibility - Stress IR:3D Stress IR:3D Gated Stress FBP LVEF: 67 % ED Volume: 129 ml ES Volume: 42 ml TID: 1.04 Perfusion Findings Stress IR:3D - Summed Score=0 All segments demonstrate normal perfusion. Rest IR:3D - Summed Score=0 All segments demonstrate normal perfusion. Stress IR:3D Rest IR:3D Summed Score=0 Summed Score=0 LEFT VENTRICLE The left ventricle is normal in size. Left ventricular systolic function is normal. Right Ventricle The right ventricle is normal in size. Right ventricle systolic function is normal. Stress Test Findings: There is no scintigraphic evidence for inducible ischemia. Apparent reversibility in the distal anterior, and mid-distal inferolateral giang is favored to be artifactual. However, if there is a clinical concern for ischemic disease, additional cardiac workup should be performed. There is no evidence of scarring. * * * Final * * * Stress ECG Report: [facility] Date of service: 04/12/2024 7:27:59 AM Ordering physician: RONEN ELDRIDGE living specialist: Willie Gonzalez Interpreting physician: Venkata García MD Patient name: MR. LAURIE GONZALES Age: 43 years Gender: M Height: 180.34 cm BSA: 2.19 m? Weight: 95.71 kg BMI: 29.4 kg/m? Indication: Encounter for pre-procedural cardiovascular examination for non-cardiac surgery Stress ECG Conclusion: Conclusion: Normal Prior exam comparison: No prior CC exam Stress ECG Summary: The patient's resting heart rate was 75 bpm and blood pressure was 128/82 mmHg. The test was terminated due to end of protocol. No symptoms provoked during stress. The maximum heart rate was 96 bpm, which is 54% of the predicted heart rate for age. Peak blood pressure was 120/78 mmHg. The double product achieved was [address]. Medications: Last Used CARVEDILOL 1 Days LISINOPRIL 1 Days CRESTOR 1 Days Resting ECG: Normal Sinus Rhythm and Rare PACs (<3/Min) Symptoms at rest: No symptoms Pharamcologic Protocol: Regadenoson Stress Exercise Table: +-----+--+---+---+ Stage HR SYS TOMMIE +-----+--+---+---+ 1 86 +-----+--+-- (more content not included)... Normal [facility] Heart Perfusion W stress and W radionuclide Rickey 04-12-2024 * * *Final Report* * * DATE OF EXAM: Apr 12 2024 10:35AM [facility] 0006 - NM CARDIAC PERF STRESS/PHARM / PROCEDURE REASON: Encounter for other preprocedural examination * * * * Physician Interpretation * * * * Stress Cutter Brake Lining Report: [facility] Date of service: 04/12/2024 7:27:59 AM Supervising physician: Venkata García MD PATIENT: Name: MR. LAURIE GONZALES Age: 43 years Gender: M The supervising physician was in the department and immediately available. * * * Final * * * PATIENT: Name: MR. LAURIE GONZALES Age: 43 years Gender: M CONCLUSIONS: 1. SPECT Perfusion Study: Normal. 2. There is no scintigraphic evidence for inducible ischemia, as described. 3. There is no scarred myocardium. 4. Left ventricle is normal in size. The left ventricle systolic function is normal. 5. Right ventricle is normal in size. The right ventricle systolic function is normal. 6. This is a low risk scan. Gated Stress FBP LVEF % 67 Prior Study Comparison No prior nuclear cardiology exam available for comparison. Nuclear Med Report:1-Day Gated SPECT Myocardial Perfusion with Regadenoson Stress: Myocardial perfusion imaging was performed at rest 30 minutes following the IV injection of the radiotracer. The patient received 0.4 mg of regadenoson, via rapid IV push, immediately followed by radiotracer IV. Gated post stress tomographic imaging was performed 30 to 60 minutes later. See administered radiotracer and doses below. [facility] Date of service: 04/12/2024 7:27:59 AM Ordering Physician: RONEN ELDRIDGE. Requesting Physician: RONEN ELDRIDGE Indication: Assessment for suspected CAD and CP - ECG uniterpretable OR unable to exercise Interpreting physician: Pipo Gotti MD Height: 180.34 cm BSA: 2.19 m Weight: 95.71 kg BMI: 29.4 kg/m Imaging Protocol Limitation Reason Patient motion and Diaphragmatic attenuation. Exam Type: Rest Stress Radiopharm: Tc-99m Tetrofosmin Tc-99m Tetrofosmin Dosage(mCi): 14.2 34.8 Stress Agent: Regadenoson 0.4mg Supply provided from [facility] Resting Blood Press: 128/82 mmHg Image Quality The overall study imaging quality was deemed to be fair. The following technical issues were noted: Patient motion and Diaphragmatic attenuation. FINDINGS: Left Ventricle Wall Motion: Stress IR:3D - All segments are normal. Rest IR:3D - Gated Stress FBP - Reversibility - Stress IR:3D Stress IR:3D Gated Stress FBP LVEF: 67 % ED Volume: 129 ml ES Volume: 42 ml TID: 1.04 Perfusion Findings Stress IR:3D - Summed Score=0 All segments demonstrate normal perfusion. Rest IR:3D - Summed Score=0 All segments demonstrate normal perfusion. Stress IR:3D Rest IR:3D Summed Score=0 Summed Score=0 LEFT VENTRICLE The left ventricle is normal in size. Left ventricular systolic function is normal. Right Ventricle The right ventricle is normal in size. Right ventricle systolic function is normal. Stress Test Findings: There is no scintigraphic evidence for inducible ischemia. Apparent reversibility in the distal anterior, and mid-distal inferolateral giang is favored to be artifactual. However, if there is a clinical concern for ischemic disease, additional cardiac workup should be performed. There is no evidence of scarring. * * * Final * * * Stress ECG Report: [facility] Date of service: 04/12/2024 7:27:59 AM Ordering physician: RONEN ELDRIDGE living specialist: Willie Gonzalez Interpreting physician: Venkata García MD Patient name: MR. LAURIE GONZALES Age: 43 years Gender: M Height: 180.34 cm BSA: 2.19 m Weight: 95.71 kg BMI: 29.4 kg/m Indication: Encounter for pre-procedural cardiovascular examination for non-cardiac surgery Stress ECG Conclusion: Conclusion: Normal Prior exam comparison: No prior CC exam Stress ECG Summary: The patient's resting heart rate was 75 bpm and blood pressure was 128/82 mmHg. The test was terminated due to end of protocol. No symptoms provoked during stress. The maximum heart rate was 96 bpm, which is 54% of the predicted heart rate for age. Peak blood pressure was 120/78 (more content not included)... DIVISION OF RADIOLOGY Provider, [facility] [place] - 04/12/2024 * * *Final Report* * * DATE OF EXAM: Apr 12 2024 10:35AM [facility] 0006 - NM CARDIAC PERF STRESS/PHARM / PROCEDURE REASON: Encounter for other preprocedural examination * * * * Physician Interpretation * * * * Stress Cutter Brake Lining Report: [facility] Date of service: 04/12/2024 7:27:59 AM Supervising physician: Venkata García MD PATIENT: Name: MR. LAURIE GONZALES Age: 43 years Gender: M The supervising physician was in the department and immediately available. * * * Final * * * PATIENT: Name: MR. LAURIE GONZALES Age: 43 years Gender: M CONCLUSIONS: 1. SPECT Perfusion Study: Normal. 2. There is no scintigraphic evidence for inducible ischemia, as described. 3. There is no scarred myocardium. 4. Left ventricle is normal in size. The left ventricle systolic function is normal. 5. Right ventricle is normal in size. The right ventricle systolic function is normal. 6. This is a low risk scan. Gated Stress FBP LVEF % 67 Prior Study Comparison No prior nuclear cardiology exam available for comparison. Nuclear Med Report:1-Day Gated SPECT Myocardial Perfusion with Regadenoson Stress: Myocardial perfusion imaging was performed at rest 30 minutes following the IV injection of the radiotracer. The patient received 0.4 mg of regadenoson, via rapid IV push, immediately followed by radiotracer IV. Gated post stress tomographic imaging was performed 30 to 60 minutes later. See administered radiotracer and doses below. [facility] Date of service: 04/12/2024 7:27:59 AM Ordering Physician: RONEN ELDRIDGE. Requesting Physician: RONEN ELDRIDGE Indication: Assessment for suspected CAD and CP - ECG uniterpretable OR unable to exercise Interpreting physician: Pipo Gotti MD Height: 180.34 cm BSA: 2.19 m Weight: 95.71 kg BMI: 29.4 kg/m Imaging Protocol Limitation Reason Patient motion and Diaphragmatic attenuation. Exam Type: Rest Stress Radiopharm: Tc-99m Tetrofosmin Tc-99m Tetrofosmin Dosage(mCi): 14.2 34.8 Stress Agent: Regadenoson 0.4mg Supply provided from [facility] Resting Blood Press: 128/82 mmHg Image Quality The overall study imaging quality was deemed to be fair. The following technical issues were noted: Patient motion and Diaphragmatic attenuation. FINDINGS: Left Ventricle Wall Motion: Stress IR:3D - All segments are normal. Rest IR:3D - Gated Stress FBP - Reversibility - Stress IR:3D Stress IR:3D Gated Stress FBP LVEF: 67 % ED Volume: 129 ml ES Volume: 42 ml TID: 1.04 Perfusion Findings Stress IR:3D - Summed Score=0 All segments demonstrate normal perfusion. Rest IR:3D - Summed Score=0 All segments demonstrate normal perfusion. Stress IR:3D Rest IR:3D Summed Score=0 Summed Score=0 LEFT VENTRICLE The left ventricle is normal in size. Left ventricular systolic function is normal. Right Ventricle The right ventricle is normal in size. Right ventricle systolic function is normal. Stress Test Findings: There is no scintigraphic evidence for inducible ischemia. Apparent reversibility in the distal anterior, and mid-distal inferolateral giang is favored to be artifactual. However, if there is a clinical concern for ischemic disease, additional cardiac workup should be performed. There is no evidence of scarring. * * * Final * * * Stress ECG Report: [facility] Date of service: 04/12/2024 7:27:59 AM Ordering physician: RONEN ELDRIDGE living specialist: Willie Gonzalez Interpreting physician: Venkata García MD Patient name: MR. LAURIE GONZALES Age: 43 years Gender: M Height: 180.34 cm BSA: 2.19 m Weight: 95.71 kg BMI: 29.4 kg/m Indication: Encounter for pre-procedural cardiovascular examination for non-cardiac surgery Stress ECG Conclusion: Conclusion: Normal Prior exam comparison: No prior CC exam Stress ECG Summary: The patient's resting heart rate was 75 bpm and blood pressure was 128/82 mmHg. The test was terminated due to end of protocol. No symptoms provoked during stress. The maximum heart rate was 96 bpm, which is 54% of the predicted heart rate for age. Peak blood pressure was 120/78 mmHg. The double product achieved was [address]. Medications: Last Used CARVEDILOL 1 Days LISINOPRIL 1 Days CRESTOR 1 Days Resting ECG: Normal Sinus Rhythm and Rare PACs (<3/Min) Symptoms at rest: N (more content not included)... [facility] Radiology Study observation (narrative) [facility] NM Heart Perfusion W stress and W radionuclide IVOrdered By: [facility] Provider on 04-12-2024 [facility] Dialysis Vein Map PRE-OP CHELE ATon 03-16-2024 Dialysis Vein Map PRE-OP BILAT Normal [facility] Lower Ext Art Exam w/o Exerc miguel angel 03-16-2024 Lower Ext Art Exam w/o Exercis Normal [facility] Cardiology Visit Reporton Cardiology Visit Report Normal [facility] Endocrinology Visit Reporton 02-25-2024 Endocrinology Visit Report Normal [facility] CNPNon 02-06-2024 EMANI Telephone (TXCTGL) LAURIE GONZALES ([id number]) 1980 M Date Time Provider Department 02/06/24 KIDNEY TXP COORDINATORS TXCTGL During your visit today, we recorded the following information about you: Genet Persaud 02/06/2024 3:08 PM Signed Patient called regarding an update . Requesting a return call from the charter coordinator. Please call him at [phone]. Roro Batista, RN 02/10/2024 10:14 AM Signed I spoke with Mr Gonzales who informed me d/t his insurance not covering his nuclear stress test he was told by the schedulers they are pushing him through anyway's and will be discussed by the selection committee. I unfortunately had to to tell Mr Gonzales that is not the case and I'm sorry he was misinformed. He will need a nuclear stress in order to move forward. I let him know I will follow up with our healthcare financial analyst to assist and give him a call. Mr Gonzales acknowledged understanding. Roro Pollard RN Allergies As of Date: 02/06/2024 Noted Allergy Reaction SEASONAL ALLERGIES 11/17/2014 5 - Intolerance Date Reviewed: 08/28/2023 Reviewed by: Virgen Stroud RD - Fully Assessed Reason for Visit: Patient Update [1234] Prescriptions as of 02/10/2024 - Acetone, Urine, Test (KETONE URINE TEST) 1 Strip as directed. DX E10.65 E10.3599 - blood sugar diagnostic (FREESTYLE LITE STRIPS) test strip Test blood sugar 10 times daily . Dx. E10.3599 E10.65, Insulin: yes - MEDICAL SUPPLY Blood pressure machine - carvedilol (COREG) 12.5 mg tablet Take 1 tablet by mouth twice daily. - lisinopril (ZESTRIL, PRINIVIL) 40 mg tablet Take 1 tablet by mouth once daily. - Nut.Tx.Gluc.Intol,La c-Free,Soy (GLUCERNA SHAKE) liqd DRINK 1 BOTTLE (237ML) [...] 4 tablets by mouth as needed. - Ketone Blood Test ([employer] XTRA B-KETONE) strp Test KETONES as directed. [...] AFFECTED AREA FIVE TIMES DAILY - Insulin Triangle, Disposable, (BD ULTRA-FINE CAROL PEN NEEDLE) 32 gauge x 32 ndle Use one needle for each dose. 7/day. - Zn Acetate-[place]- [place] (AMERIGEL) gel Apply 1 application to affected area twice daily. - lancets (FREESTYLE LANCETS) 28 gauge misc Test blood sugar four times daily 250.00 - sildenafil (VIAGRA) 100 mg tablet Take 0.5 tablets by mouth as needed. 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 [facility] [address] BUN/CRE Normal 10-20 [facility] Comment on above: Result Comment: Canc elled via OM: Order cancelled - Patient discharged Performed By: #### L 100.0100, L500.2500 ####[facility] [address] [place], [address] CA,Total Normal 8.5-10.1 [facility] Comment on above: Result Comment: Canc elled via OM: Order cancelled - Patient discharged Performed By: #### L 100.0100, L500.2500 ####[facility] [address] [place], [address] CL Normal 98-107 [facility] Comment on above: Result Comment: Canc elled via OM: Order cancelled - Patient discharged Performed By: #### L 100.0100, L500.2500 ####[facility] [address] [place], [address] CO2 Normal 21.0-32.0 [facility] Comment on above: Result Comment: Canc elled via OM: Order cancelled - Patient discharged Performed By: #### L 100.0100, L500.2500 ####[facility] [address] [place], [address] CREAT,SERUM Normal 0.70-1.30 [facility] Comment on above: Result Comment: Canc elled via OM: Order cancelled - Patient discharged Performed By: #### L 100.0100, L500.2500 ####[facility] [address] [place], [address] EST GFR Normal >60 [facility] Comment on above: Result Comment: Canc elled via OM: Order cancelled - Patient discharged Performed By: #### L 100.0100, L500.2500 ####[facility] [address] [place], [address] EST GFR - AA Normal >60 [facility] Comment on above: Result Comment: Canc elled via OM: Order cancelled - Patient discharged Performed By: #### L 100.0100, L500.2500 ####[facility] [address] [place], [address] GAP Normal 5-15 [facility] Comment on above: Result Comment: Canc elled via OM: Order cancelled - Patient discharged Performed By: #### L 100.0100, L500.2500 ####[facility] [address] [place], [address] GLU Normal 74-106 [facility] Comment on above: Result Comment: Canc elled via OM: Order cancelled - Patient discharged Performed By: #### L 100.0100, L500.2500 ####[facility] [address] [place], [address] Potassium Normal 3.5-5.1 [facility] Comment on above: Result Comment: Canc elled via OM: Order cancelled - Patient discharged Performed By: #### L 100.0100, L500.2500 ####[facility] [address] [place], [address] Basic Metabolic Profile (BMP) Normal 136-145 [facility] Comment on above: Result Comment: Canc elled via OM: Order cancelled - Patient discharged Performed By: #### L 100.0100, L500.2500 ####[facility] [address] [place], [address] CBC W/Diff, Automatedon 11-0 5-2023 Absolute Neut Normal 2.0-7.7 [facility] Comment on above: Result Comment: Canc elled via OM: Order cancelled - Patient discharged Performed By: #### L 100.0100, L500.2500 ####[facility] [address] [place], [address] HCT Normal 40-54 [facility] Comment on above: Result Comment: Canc elled via OM: Order cancelled - Patient discharged Performed By: #### L 100.0100, L500.2500 ####[facility] [address] [place], [address] HGB Normal 13.0-16.5 [facility] Comment on above: Result Comment: Canc elled via OM: Order cancelled - Patient discharged Performed By: #### L 100.0100, L500.2500 ####[facility] [address] [place], [address] MCH Normal 27.0-32.0 [facility] Comment on above: Result Comment: Canc elled via OM: Order cancelled - Patient discharged Performed By: #### L 100.0100, L500.2500 ####[facility] [address] [place], [address] MCHC Normal 32-36 [facility] Comment on above: Result Comment: Canc elled via OM: Order cancelled - Patient discharged Performed By: #### L 100.0100, L500.2500 ####[facility] [address] [place], [address] MCV Normal 80-94 [facility] Comment on above: Result Comment: Canc elled via OM: Order cancelled - Patient discharged Performed By: #### L 100.0100, L500.2500 ####[facility] [address] [place], [address] NEUT% Normal 47-70 [facility] Comment on above: Result Comment: Canc elled via OM: Order cancelled - Patient discharged Performed By: #### L 100.0100, L500.2500 ####[facility] [address] [place], [address] PLT Normal 150-450 [facility] Comment on above: Result Comment: Canc elled via OM: Order cancelled - Patient discharged Performed By: #### L 100.0100, L500.2500 ####[facility] [address] [place], [address] RBC Normal 4.6-6.2 [facility] Comment on above: Result Comment: Canc elled via OM: Order cancelled - Patient discharged Performed By: #### L 100.0100, L500.2500 ####[facility] [address] [place], [address] RDW CV Normal 11.6-14.6 [facility] Comment on above: Result Comment: Canc elled via OM: Order cancelled - Patient discharged Performed By: #### L 100.0100, L500.2500 ####[facility] [address] [place], [address] RDW SD Normal 35.1-43.9 [facility] Comment on above: Result Comment: Canc elled via OM: Order cancelled - Patient discharged Performed By: #### L 100.0100, L500.2500 ####[facility] [address] [place], [address] WBC Normal 4.4-11.0 [facility] Comment on above: Result Comment: Canc elled via OM: Order cancelled - Patient discharged Performed By: #### L 100.0100, L500.2500 ####[facility] [address] [place], [address] Basic Metabolic Profile (BMP )on 02-02-2024 BUN Normal 7-18 [facility] Comment on above: Result Comment: Canc elled via OM: Order cancelled - Patient discharged Performed By: #### L 500.2500, L100.0100 ####[facility] [address] [place], [address] BUN/CRE Normal 10-20 [facility] Comment on above: Result Comment: Canc elled via OM: Order cancelled - Patient discharged Performed By: #### L 500.2500, L100.0100 ####[facility] [address] [place], [address] CA,Total Normal 8.5-10.1 [facility] Comment on above: Result Comment: Canc elled via OM: Order cancelled - Patient discharged Performed By: #### L 500.2500, L100.0100 ####[facility] [address] [place], [address] CL Normal 98-107 [facility] Comment on above: Result Comment: Canc elled via OM: Order cancelled - Patient discharged Performed By: #### L 500.2500, L100.0100 ####[facility] [address] [place], [address] CO2 Normal 21.0-32.0 [facility] Comment on above: Result Comment: Canc elled via OM: Order cancelled - Patient discharged Performed By: #### L 500.2500, L100.0100 ####[facility] [address], [address] CREAT,SERUM Normal 0.70-1.30 [facility] Comment on above: Result Comment: Canc elled via OM: Order cancelled - Patient discharged Performed By: #### L 500.2500, L100.0100 ####[facility] [address] [place], [address] EST GFR Normal >60 [facility] Comment on above: Result Comment: Canc elled via OM: Order cancelled - Patient discharged Performed By: #### L 500.2500, L100.0100 ####[facility] [address] [place], [address] EST GFR - AA Normal >60 [facility] Comment on above: Result Comment: Canc elled via OM: Order cancelled - Patient discharged Performed By: #### L 500.2500, L100.0100 ####[facility] [address] [place], [address] GAP Normal 5-15 [facility] Comment on above: Result Comment: Canc elled via OM: Order cancelled - Patient discharged Performed By: #### L 500.2500, L100.0100 ####[facility] [address] [place], [address] GLU Normal 74-106 [facility] Comment on above: Result Comment: Canc elled via OM: Order cancelled - Patient discharged Performed By: #### L 500.2500, L100.0100 ####[facility] [address] [place], [address] Potassium Normal 3.5-5.1 [facility] Comment on above: Result Comment: Canc elled via OM: Order cancelled - Patient discharged Performed By: #### L 500.2500, L100.0100 ####[facility] [address] [place], [address] Basic Metabolic Profile (BMP) Normal 136-145 [facility] Comment on above: Result Comment: Canc elled via OM: Order cancelled - Patient discharged Performed By: #### L 500.2500, L100.0100 ####[facility] [address] [place], [address] CBC W/Diff, Automatedon 11-0 -2023 Absolute Neut Normal 2.0-7.7 [facility] Comment on above: Result Comment: Canc elled via OM: Order cancelled - Patient discharged Performed By: #### L 500.2500, L100.0100 ####[facility] [address] [place], [address] HCT Normal 40-54 [facility] Comment on above: Result Comment: Canc elled via OM: Order cancelled - Patient discharged Performed By: #### L 500.2500, L100.0100 ####[facility] [address] [place], [address] HGB Normal 13.0-16.5 [facility] Comment on above: Result Comment: Canc elled via OM: Order cancelled - Patient discharged Performed By: #### L 500.2500, L100.0100 ####[facility] [address] [place], [address] MCH Normal 27.0-32.0 [facility] Comment on above: Result Comment: Canc elled via OM: Order cancelled - Patient discharged Performed By: #### L 500.2500, L100.0100 ####[facility] [address] [place], [address] MCHC Normal 32-36 [facility] Comment on above: Result Comment: Canc elled via OM: Order cancelled - Patient discharged Performed By: #### L 500.2500, L100.0100 ####[facility] [address] [place], [address] MCV Normal 80-94 [facility] Comment on above: Result Comment: Canc elled via OM: Order cancelled - Patient discharged Performed By: #### L 500.2500, L100.0100 ####[facility] [address] [place], [address] NEUT% Normal 47-70 [facility] Comment on above: Result Comment: Canc elled via OM: Order cancelled - Patient discharged Performed By: #### L 500.2500, L100.0100 ####[facility] [address] [place], [address] PLT Normal 150-450 [facility] Comment on above: Result Comment: Canc elled via OM: Order cancelled - Patient discharged Performed By: #### L 500.2500, L100.0100 ####[facility] [address] [place], [address] RBC Normal 4.6-6.2 [facility] Comment on above: Result Comment: Canc elled via OM: Order cancelled - Patient discharged Performed By: #### L 500.2500, L100.0100 ####[facility] [address] [place], [address] RDW CV Normal 11.6-14.6 [facility] Comment on above: Result Comment: Canc elled via OM: Order cancelled - Patient discharged Performed By: #### L 500.2500, L100.0100 ####[facility] [address] [place], [address] RDW SD Normal 35.1-43.9 [facility] Comment on above: Result Comment: Canc elled via OM: Order cancelled - Patient discharged Performed By: #### L 500.2500, L100.0100 ####[facility] [address] [place], [address] WBC Normal 4.4-11.0 [facility] Comment on above: Result Comment: Canc elled via OM: Order cancelled - Patient discharged Performed By: #### L 500.2500, L100.0100 ####[facility] [address] [place], [address] Basic Metabolic Profile (BMP )on 02-01-2024 BUN Normal 7-18 [facility] Comment on above: Result Comment: Canc elled via OM: Order cancelled - Patient discharged Performed By: #### L 500.2500, L100.0100 ####[facility] [address] [place], [address] BUN/CRE Normal 10-20 [facility] Comment on above: Result Comment: Canc elled via OM: Order cancelled - Patient discharged Performed By: #### L 500.2500, L100.0100 ####[facility] [address] [place], [address] CA,Total Normal 8.5-10.1 [facility] Comment on above: Result Comment: Canc elled via OM: Order cancelled - Patient discharged Performed By: #### L 500.2500, L100.0100 ####[facility] [address] [place], [address] CL Normal 98-107 [facility] Comment on above: Result Comment: Canc elled via OM: Order cancelled - Patient discharged Performed By: #### L 500.2500, L100.0100 ####[facility] [address] [place], [address] CO2 Normal 21.0-32.0 [facility] Comment on above: Result Comment: Canc elled via OM: Order cancelled - Patient discharged Performed By: #### L 500.2500, L100.0100 ####[facility] [address] [place], [address] CREAT,SERUM Normal 0.70-1.30 [facility] Comment on above: Result Comment: Canc elled via OM: Order cancelled - Patient discharged Performed By: #### L 500.2500, L100.0100 ####[facility] [address] [place], [address] EST GFR Normal >60 [facility] Comment on above: Result Comment: Canc elled via OM: Order cancelled - Patient discharged Performed By: #### L 500.2500, L100.0100 ####[facility] [address] [place], [address] EST GFR - AA Normal >60 [facility] Comment on above: Result Comment: Canc elled via OM: Order cancelled - Patient discharged Performed By: #### L 500.2500, L100.0100 ####[facility] [address] [place], [address] GAP Normal 5-15 [facility] Comment on above: Result Comment: Canc elled via OM: Order cancelled - Patient discharged Performed By: #### L 500.2500, L100.0100 ####[facility] [address] [place], [address] GLU Normal 74-106 [facility] Comment on above: Result Comment: Canc elled via OM: Order cancelled - Patient discharged Performed By: #### L 500.2500, L100.0100 ####[facility] [address] [place], [address] Potassium Normal 3.5-5.1 [facility] Comment on above: Result Comment: Canc elled via OM: Order cancelled - Patient discharged Performed By: #### L 500.2500, L100.0100 ####[facility] [address] [place], [address] Basic Metabolic Profile (BMP) Normal 136-145 [facility] Comment on above: Result Comment: Canc elled via OM: Order cancelled - Patient discharged Performed By: #### L 500.2500, L100.0100 ####[facility] [address] [place], [address] CBC W/Diff, Automatedon 11-0 Absolute Neut Normal 2.0-7.7 [facility] Comment on above: Result Comment: Canc elled via OM: Order cancelled - Patient discharged Performed By: #### L 500.2500, L100.0100 ####[facility] [address] [place], [address] HCT Normal 40-54 [facility] Comment on above: Result Comment: Canc elled via OM: Order cancelled - Patient discharged Performed By: #### L 500.2500, L100.0100 ####[facility] [address] [place], [address] HGB Normal 13.0-16.5 [facility] Comment on above: Result Comment: Canc elled via OM: Order cancelled - Patient discharged Performed By: #### L 500.2500, L100.0100 ####[facility] [address] [place], [address] MCH Normal 27.0-32.0 [facility] Comment on above: Result Comment: Canc elled via OM: Order cancelled - Patient discharged Performed By: #### L 500.2500, L100.0100 ####[facility] [address] [place], [address] MCHC Normal 32-36 [facility] Comment on above: Result Comment: Canc elled via OM: Order cancelled - Patient discharged Performed By: #### L 500.2500, L100.0100 ####[facility] [address] [place], [address] MCV Normal 80-94 [facility] Comment on above: Result Comment: Canc elled via OM: Order cancelled - Patient discharged Performed By: #### L 500.2500, L100.0100 ####[facility] [address] [place], [address] NEUT% Normal 47-70 [facility] Comment on above: Result Comment: Canc elled via OM: Order cancelled - Patient discharged Performed By: #### L 500.2500, L100.0100 ####[facility] [address] [place], [address] PLT Normal 150-450 [facility] Comment on above: Result Comment: Canc elled via OM: Order cancelled - Patient discharged Performed By: #### L 500.2500, L100.0100 ####[facility] [address] [place], [address] RBC Normal 4.6-6.2 [facility] Comment on above: Result Comment: Canc elled via OM: Order cancelled - Patient discharged Performed By: #### L 500.2500, L100.0100 ####[facility] [address] [place], [address] RDW CV Normal 11.6-14.6 [facility] Comment on above: Result Comment: Canc elled via OM: Order cancelled - Patient discharged Performed By: #### L 500.2500, L100.0100 ####[facility] [address] [place], [address] RDW SD Normal 35.1-43.9 [facility] Comment on above: Result Comment: Canc elled via OM: Order cancelled - Patient discharged Performed By: #### L 500.2500, L100.0100 ####[facility] [address] [place], [address] WBC Normal 4.4-11.0 [facility] Comment on above: Result Comment: Canc elled via OM: Order cancelled - Patient discharged Performed By: #### L 500.2500, L100.0100 ####[facility] [address] [place], [address] Basic Metabolic Profile (BMP )on 01-31-2024 BUN/CRE 6.8 RATIO Low 10-20 [facility] Comment on above: Performed By: #### L 100.0100, L500.2500 ####[facility] [address] [place], [address] CA,Total 9.4 mg/dL Normal 8.5-10.1 [facility] Comment on above: Performed By: #### L 100.0100, L500.2500 ####[facility] [address] [place], [address] Chloride [Moles/Vol] 110 mmol/L High 98-107 [facility] Comment on above: Performed By: #### L 100.0100, L500.2500 ####[facility] [address] [place], [address] CO2 [Moles/Vol] 25.0 mmol/L Normal 21.0-32.0 [facility] Comment on above: Performed By: #### L 100.0100, L500.2500 ####[facility] [address] [place], [address] Creatinine [Mass/Vol] 4.69 mg/dL High 0.70-1.30 [facility] Comment on above: Result Comment: The validity of the calculated GFR GFRAA in patients over70 years has not been determined. Clinical correlation isessential. Performed By: #### L 100.0100, L500.2500 ####[facility] [address] [place], [address] ECRCL 22.08 ml/min Normal [facility] Comment on above: Performed By: #### L 100.0100, L500.2500 ####[facility] [address] [place], [address] EST GFR - AA 18 mL/min Low >60 [facility] Comment on above: Result Comment: Afri can Japanese GFR Calc Performed By: #### L 100.0100, L500.2500 ####[facility] [address] [place], [address] GAP 4 Low 5-15 [facility] Comment on above: Performed By: #### L 100.0100, L500.2500 ####[facility] [address] [place], [address] GFR/1.73 sq M.predicted among non-blacks MDRD (S/P/Bld) [Vol rate/Area] 15 mL/min/{1.73_m2} Low >[address] [facility] Comment on above: Result Comment: Non- GFR Calc Performed By: #### L 100.0100, L500.2500 ####[facility] [address] [place], [address] Glucose [Mass/Vol] 143 mg/dL High 74-106 [facility] Comment on above: Result Comment: Fast ing Glucose result greater than or equal to 126 mg/dLsuggests DIABETES MELLITUS per A.D.A. criteria. Performed By: #### L 100.0100, L500.2500 ####[facility] [address] [place], [address] Potassium [Moles/Vol] 3.9 mmol/L Normal 3.5-5.1 [facility] Comment on above: Performed By: #### L 100.0100, L500.2500 ####[facility] [address] [place], [address] Sodium [Moles/Vol] 139 mmol/L Normal 136-145 [facility] Comment on above: Performed By: #### L 100.0100, L500.2500 ####[facility] [address] [place], [address] Urea nitrogen [Mass/Vol] 32 mg/dL High 7-18 [facility] Comment on above: Performed By: #### L 100.0100, L500.2500 ####[facility] [address] [place], [address] CBC W/Diff, Automatedon 11-0 2-4 Absolute Lymph 1.39 X10 3/uL Normal 0.83-4.51 [facility] Comment on above: Performed By: #### L 100.0100, L500.2500 ####[facility] [address] [place], [address] Absolute Neut 5.3 X10 3/uL Normal 2.0-7.7 [facility] Comment on above: Performed By: #### L 100.0100, L500.2500 ####[facility] [address] [place], [address] Basophils/100 WBC (Bld) 1.0 % Normal 0-1 [facility] Comment on above: Performed By: #### L 100.0100, L500.2500 ####[facility] [address] [place], [address] Eosinophils/100 WBC (Bld) 4.5 % Normal 0-5 [facility] Comment on above: Performed By: #### L 100.0100, L500.2500 ####[facility] [address] [place], [address] Erythrocyte distribution width (RBC) [Ratio] 13.3 % Normal 11.6-14.6 [facility] Comment on above: Performed By: #### L 100.0100, L500.2500 ####[facility] [address] [place], [address] Hematocrit (Bld) [Volume fraction] 27.9 % Low 40-54 [facility] Comment on above: Performed By: #### L 100.0100, L500.2500 ####[facility] [address] [place], [address] Hemoglobin (Bld) [Mass/Vol] 8.9 g/dL Low 13.0-16. 5 [facility] Comment on above: Performed By: #### L 100.0100, L500.2500 ####[facility] [address] [place], [address] IG% 1.100 High 0.0-0.9 [facility] Comment on above: Result Comment: IG% - Immature Granulocytes (promyelocytes, myelocytes andmetamyelocytes) > 1% indicates that a LEFT SHIFT is Present. Performed By: #### L 100.0100, L500.2500 ####[facility] [address] [place], [address] Lymphocytes/100 WBC (Bld) 17.0 % Low 19-41 [facility] Comment on above: Performed By: #### L 100.0100, L500.2500 ####[facility] [address] [place], [address] MCH (RBC) [Entitic mass] 27.1 pg Normal 27.0-32.0 [facility] Comment on above: Performed By: #### L 100.0100, L500.2500 ####[facility] [address] [place], [address] MCHC (RBC) [Mass/Vol] 31.9 g/dL Low 32-36 [facility] Comment on above: Performed By: #### L 100.0100, L500.2500 ####[facility] [address] [place], [address] MCV (RBC) [Entitic vol] 84.8 fL Normal 80-94 [facility] Comment on above: Performed By: #### L 100.0100, L500.2500 ####[facility] [address] [place], [address] Monocytes/100 WBC (Bld) 12.4 % High 0-10 [facility] Comment on above: Performed By: #### L 100.0100, L500.2500 ####[facility] [address] [place], [address] Neutrophils/100 WBC (Bld) 64.0 % Normal 47-70 [facility] Comment on above: Performed By: #### L 100.0100, L500.2500 ####[facility] [address] [place], [address] Nucleated RBC (Bld) [#/Vol] 0 10*3/uL Normal 0-5 [facility] Comment on above: Performed By: #### L 100.0100, L500.2500 ####[facility] [address] [place], [address] Platelet mean volume (Bld) [Entitic vol] 8.9 fL Normal 6.2-12.0 [facility] Comment on above: Performed By: #### L 100.0100, L500.2500 ####[facility] [address] [place], [address] Platelets (Bld) [#/Vol] 388 10*3/uL Normal 150-450 [facility] Comment on above: Performed By: #### L 100.0100, L500.2500 ####[facility] [address] [place], [address] RBC (Bld) [#/Vol] 3.29 10*6/uL Low 4.6-6.2 [facility] Comment on above: Performed By: #### L 100.0100, L500.2500 ####[facility] [address] [place], [address] RDW SD 41.1 fl Normal 35.1-43.9 [facility] Comment on above: Performed By: #### L 100.0100, L500.2500 ####[facility] [address] [place], [address] WBC (Bld) [#/Vol] 8.2 10*3/uL Normal 4.4-11.0 [facility] Comment on above: Performed By: #### L 100.0100, L500.2500 ####[facility] [address] [place], [address] CDIFF (PCR)on 01-31-2024 CDIFF Normal [facility] Comment on above: Performed By: #### M 100.6796 ####[facility] [address] [place], [address] Culture, Blood (WB)on 2023 CUB Normal [facility] Comment on above: Performed By: #### M 100.636, M200.1000 ####[facility] [address] [place], [address] Discharge Instructionon Discharge Instruction Normal [facility] Stool Occult Blood iFOBon STOB Positive Normal [facility] Comment on above: Performed By: #### M 100.7900 ####[facility] [address] [place], [address] 12 Lead EKGon 01-30-2024 12 Lead EKG Normal [facility] Basic Metabolic Profile (BMP )on 01-30-2024 BUN/CRE 7.2 RATIO Low 10-20 [facility] Comment on above: Performed By: #### L 500.2500, L100.0100 ####[facility] [address] [place], [address] CA,Total 9.2 mg/dL Normal 8.5-10.1 [facility] Comment on above: Performed By: #### L 500.2500, L100.0100 ####[facility] [address] [place], [address] Chloride [Moles/Vol] 108 mmol/L High 98-107 [facility] Comment on above: Performed By: #### L 500.2500, L100.0100 ####[facility] [address] [place], [address] CO2 [Moles/Vol] 25.0 mmol/L Normal 21.0-32.0 [facility] Comment on above: Performed By: #### L 500.2500, L100.0100 ####[facility] [address] [place], [address] Creatinine [Mass/Vol] 5.15 mg/dL High 0.70-1.30 [facility] Comment on above: Result Comment: The validity of the calculated GFR GFRAA in patients over70 years has not been determined. Clinical correlation isessential. Performed By: #### L 500.2500, L100.0100 ####[facility] [address] [place], [address] ECRCL 21.83 ml/min Normal [facility] Comment on above: Performed By: #### L 500.2500, L100.0100 ####[facility] [address] [place], [address] EST GFR - AA 16 mL/min Low >60 [facility] Comment on above: Result Comment: Afri can Japanese GFR Calc Performed By: #### L 500.2500, L100.0100 ####[facility] [address] [place], [address] GAP 6 Normal 5-15 [facility] Comment on above: Performed By: #### L 500.2500, L100.0100 ####[facility] [address] [place], [address] GFR/1.73 sq M.predicted among non-blacks MDRD (S/P/Bld) [Vol rate/Area] 13 mL/min/{1.73_m2} Low >[address] [facility] Comment on above: Result Comment: Non- GFR Calc Performed By: #### L 500.2500, L100.0100 ####[facility] [address] [place], [address] Glucose [Mass/Vol] 147 mg/dL High 74-106 [facility] Comment on above: Result Comment: Fast ing Glucose result greater than or equal to 126 mg/dLsuggests DIABETES MELLITUS per A.D.A. criteria. Performed By: #### L 500.2500, L100.0100 ####[facility] [address] [place], [address] Potassium [Moles/Vol] 3.7 mmol/L Normal 3.5-5.1 [facility] Comment on above: Performed By: #### L 500.2500, L100.0100 ####[facility] [address] [place], [address] Sodium [Moles/Vol] 139 mmol/L Normal 136-145 [facility] Comment on above: Performed By: #### L 500.2500, L100.0100 ####[facility] [address] [place], [address] Urea nitrogen [Mass/Vol] 37 mg/dL High 7-18 [facility] Comment on above: Performed By: #### L 500.2500, L100.0100 ####[facility] [address] [place], [address] Bedside Glucoseon 01-30-2024 FINGERSTICK GLU 107 mg/dL High 74-106 [facility] Comment on above: Result Comment: EDUARDO GEMENT OF PATIENT CARE PER NURSING PROTOCOL Performed By: #### L 501.080 ####[facility] [address] [place], [address] FINGERSTICK GLU 117 mg/dL High 74-106 [facility] Comment on above: Result Comment: EDUARDO GEMENT OF PATIENT CARE PER NURSING PROTOCOL Performed By: #### L 501.080 ####[facility] [address] [place], [address] CBC W/Diff, Automatedon 11-0 Absolute Lymph 1.21 X10 3/uL Normal 0.83-4.51 [facility] Comment on above: Performed By: #### L 500.2500, L100.0100 ####[facility] [address] [place], [address] Absolute Neut 4.2 X10 3/uL Normal 2.0-7.7 [facility] Comment on above: Performed By: #### L 500.2500, L100.0100 ####[facility] [address] [place], [address] Basophils/100 WBC (Bld) 1.0 % Normal 0-1 [facility] Comment on above: Performed By: #### L 500.2500, L100.0100 ####[facility] [address] [place], [address] Eosinophils/100 WBC (Bld) 5.2 % High 0-5 [facility] Comment on above: Performed By: #### L 500.2500, L100.0100 ####[facility] [address] [place], [address] Erythrocyte distribution width (RBC) [Ratio] 13.2 % Normal 11.6-14.6 [facility] Comment on above: Performed By: #### L 500.2500, L100.0100 ####[facility] [address] [place], [address] Hematocrit (Bld) [Volume fraction] 26.8 % Low 40-54 [facility] Comment on above: Performed By: #### L 500.2500, L100.0100 ####[facility] [address] [place], [address] Hemoglobin (Bld) [Mass/Vol] 8.3 g/dL Low 13.0-16. 5 [facility] Comment on above: Performed By: #### L 500.2500, L100.0100 ####[facility] [address] [place], [address] IG% 0.700 Normal 0.0-0.9 [facility] Comment on above: Result Comment: IG% - Immature Granulocytes (promyelocytes, myelocytes andmetamyelocytes) > 1% indicates that a LEFT SHIFT is Present. Performed By: #### L 500.2500, L100.0100 ####[facility] [address] [place], [address] Lymphocytes/100 WBC (Bld) 17.8 % Low 19-41 [facility] Comment on above: Performed By: #### L 500.2500, L100.0100 ####[facility] [address] [place], [address] MCH (RBC) [Entitic mass] 26.3 pg Low 27.0-32.0 [facility] Comment on above: Performed By: #### L 500.2500, L100.0100 ####[facility] [address] [place], [address] MCHC (RBC) [Mass/Vol] 31.0 g/dL Low 32-36 [facility] Comment on above: Performed By: #### L 500.2500, L100.0100 ####[facility] [address] [place], [address] MCV (RBC) [Entitic vol] 84.8 fL Normal 80-94 [facility] Comment on above: Performed By: #### L 500.2500, L100.0100 ####[facility] [address] [place], [address] Monocytes/100 WBC (Bld) 12.8 % High 0-10 [facility] Comment on above: Performed By: #### L 500.2500, L100.0100 ####[facility] [address] [place], [address] Neutrophils/100 WBC (Bld) 62.5 % Normal 47-70 [facility] Comment on above: Performed By: #### L 500.2500, L100.0100 ####[facility] [address] [place], [address] Nucleated RBC (Bld) [#/Vol] 0 10*3/uL Normal 0-5 [facility] Comment on above: Performed By: #### L 500.2500, L100.0100 ####[facility] [address] [place], [address] Platelet mean volume (Bld) [Entitic vol] 9.0 fL Normal 6.2-12.0 [facility] Comment on above: Performed By: #### L 500.2500, L100.0100 ####[facility] [address] [place], [address] Platelets (Bld) [#/Vol] 374 10*3/uL Normal 150-450 [facility] Comment on above: Performed By: #### L 500.2500, L100.0100 ####[facility] [address] [place], [address] RBC (Bld) [#/Vol] 3.16 10*6/uL Low 4.6-6.2 [facility] Comment on above: Performed By: #### L 500.2500, L100.0100 ####[facility] [address] [place], [address] RDW SD 41.1 fl Normal 35.1-43.9 [facility] Comment on above: Performed By: #### L 500.2500, L100.0100 ####[facility] [address] [place], [address] WBC (Bld) [#/Vol] 6.8 10*3/uL Normal 4.4-11.0 [facility] Comment on above: Performed By: #### L 500.2500, L100.0100 ####[facility] [address] [place], [address] CXR for Line Placementon CXR for Line Placement Normal [facility] MR/POSTOP.ANEon 01-30-2024 MR/POSTOP.ANE Normal [facility] MR/[id number] 01-30-2024 MR/POSTOPAN2 Normal [facility] Operative Reporton Operative Report Normal [facility] Partial Thromboplast Timeon 01-30-2024 aPTT Coag (Bld) [Time] 28.8 s Normal 24.1-36.[address] [facility] Comment on above: Order Comment: Comme nts: Pre-Op Orders Performed By: #### L 300.4310 ####[facility] [address] [place], [address] Basic Metabolic Profile (BMP )on 01-29-2024 BUN/CRE 7.6 RATIO Low 10-20 [facility] Comment on above: Performed By: #### L 100.0100, L500.2500 ####[facility] [address] [place], [address] CA,Total 9.3 mg/dL Normal 8.5-10.1 [facility] Comment on above: Performed By: #### L 100.0100, L500.2500 ####[facility] [address] [place], [address] Chloride [Moles/Vol] 105 mmol/L Normal 98-107 [facility] Comment on above: Performed By: #### L 100.0100, L500.2500 ####[facility] [address] [place], [address] CO2 [Moles/Vol] 26.0 mmol/L Normal 21.0-32.0 [facility] Comment on above: Performed By: #### L 100.0100, L500.2500 ####[facility] [address] [place], [address] Creatinine [Mass/Vol] 4.73 mg/dL High 0.70-1.30 [facility] Comment on above: Result Comment: The validity of the calculated GFR GFRAA in patients over70 years has not been determined. Clinical correlation isessential. Performed By: #### L 100.0100, L500.2500 ####[facility] [address] [place], [address] ECRCL 23.81 ml/min Normal [facility] Comment on above: Performed By: #### L 100.0100, L500.2500 ####[facility] [address] [place], [address] EST GFR - AA 18 mL/min Low >60 [facility] Comment on above: Result Comment: Afri can Japanese GFR Calc Performed By: #### L 100.0100, L500.2500 ####[facility] [address] [place], [address] GAP 6 Normal 5-15 [facility] Comment on above: Performed By: #### L 100.0100, L500.2500 ####[facility] [address] [place], [address] GFR/1.73 sq M.predicted among non-blacks MDRD (S/P/Bld) [Vol rate/Area] 15 mL/min/{1.73_m2} Low >[address] [facility] Comment on above: Result Comment: Non- GFR Calc Performed By: #### L 100.0100, L500.2500 ####[facility] [address] [place], [address] Glucose [Mass/Vol] 154 mg/dL High 74-106 [facility] Comment on above: Result Comment: Fast ing Glucose result greater than or equal to 126 mg/dLsuggests DIABETES MELLITUS per A.D.A. criteria. Performed By: #### L 100.0100, L500.2500 ####[facility] [address] [place], [address] Potassium [Moles/Vol] 3.8 mmol/L Normal 3.5-5.1 [facility] Comment on above: Performed By: #### L 100.0100, L500.2500 ####[facility] [address] [place], [address] Sodium [Moles/Vol] 137 mmol/L Normal 136-145 [facility] Comment on above: Performed By: #### L 100.0100, L500.2500 ####[facility] [address] [place], [address] Urea nitrogen [Mass/Vol] 36 mg/dL High 7-18 [facility] Comment on above: Performed By: #### L 100.0100, L500.2500 ####[facility] [address] [place], [address] CBC W/Diff, Automatedon 10-3 -2023 Absolute Lymph 1.16 X10 3/uL Normal 0.83-4.51 [facility] Comment on above: Performed By: #### L 100.0100, L500.2500 ####[facility] [address] [place], [address] Absolute Neut 4.9 X10 3/uL Normal 2.0-7.7 [facility] Comment on above: Performed By: #### L 100.0100, L500.2500 ####[facility] [address] [place], [address] Basophils/100 WBC (Bld) 1.2 % High 0-1 [facility] Comment on above: Performed By: #### L 100.0100, L500.2500 ####[facility] [address] [place], [address] Eosinophils/100 WBC (Bld) 4.7 % Normal 0-5 [facility] Comment on above: Performed By: #### L 100.0100, L500.2500 ####[facility] [address] [place], [address] Erythrocyte distribution width (RBC) [Ratio] 13.1 % Normal 11.6-14.6 [facility] Comment on above: Performed By: #### L 100.0100, L500.2500 ####[facility] [address] [place], [address] Hematocrit (Bld) [Volume fraction] 24.5 % Low 40-54 [facility] Comment on above: Performed By: #### L 100.0100, L500.2500 ####[facility] [address] [place], [address] Hemoglobin (Bld) [Mass/Vol] 8.1 g/dL Low 13.0-16. 5 [facility] Comment on above: Performed By: #### L 100.0100, L500.2500 ####[facility] [address] [place], [address] IG% 0.500 Normal 0.0-0.9 [facility] Comment on above: Result Comment: IG% - Immature Granulocytes (promyelocytes, myelocytes andmetamyelocytes) > 1% indicates that a LEFT SHIFT is Present. Performed By: #### L 100.0100, L500.2500 ####[facility] [address] [place], [address] Lymphocytes/100 WBC (Bld) 15.6 % Low 19-41 [facility] Comment on above: Performed By: #### L 100.0100, L500.2500 ####[facility] [address] [place], [address] MCH (RBC) [Entitic mass] 27.5 pg Normal 27.0-32.0 [facility] Comment on above: Performed By: #### L 100.0100, L500.2500 ####[facility] [address] [place], [address] MCHC (RBC) [Mass/Vol] 33.1 g/dL Normal 32-36 [facility] Comment on above: Performed By: #### L 100.0100, L500.2500 ####[facility] [address] [place], [address] MCV (RBC) [Entitic vol] 83.1 fL Normal 80-94 [facility] Comment on above: Performed By: #### L 100.0100, L500.2500 ####[facility] [address] [place], [address] Monocytes/100 WBC (Bld) 12.5 % High 0-10 [facility] Comment on above: Performed By: #### L 100.0100, L500.2500 ####[facility] [address] [place], [address] Neutrophils/100 WBC (Bld) 65.5 % Normal 47-70 [facility] Comment on above: Performed By: #### L 100.0100, L500.2500 ####[facility] [address] [place], [address] Nucleated RBC (Bld) [#/Vol] 0 10*3/uL Normal 0-5 [facility] Comment on above: Performed By: #### L 100.0100, L500.2500 ####[facility] [address] [place], [address] Platelet mean volume (Bld) [Entitic vol] 9.6 fL Normal 6.2-12.0 [facility] Comment on above: Performed By: #### L 100.0100, L500.2500 ####[facility] [address] [place], [address] Platelets (Bld) [#/Vol] 327 10*3/uL Normal 150-450 [facility] Comment on above: Performed By: #### L 100.0100, L500.2500 ####[facility] [address] [place], [address] RBC (Bld) [#/Vol] 2.95 10*6/uL Low 4.6-6.2 [facility] Comment on above: Performed By: #### L 100.0100, L500.2500 ####[facility] [address] [place], [address] RDW SD 39.6 fl Normal 35.1-43.9 [facility] Comment on above: Performed By: #### L 100.0100, L500.2500 ####[facility] [address] [place], [address] WBC (Bld) [#/Vol] 7.4 10*3/uL Normal 4.4-11.0 [facility] Comment on above: Performed By: #### L 100.0100, L500.2500 ####[facility] [address] [place], [address] Consultation - Surgicalon Consultation - Surgical Normal [facility] Basic Metabolic Profile (BMP )on 01-28-2024 BUN/CRE 8.5 RATIO Low 10-20 [facility] Comment on above: Performed By: #### L 100.0100, L500.2500 ####[facility] [address] [place], [address] CA,Total 9.1 mg/dL Normal 8.5-10.1 [facility] Comment on above: Performed By: #### L 100.0100, L500.2500 ####[facility] [address] [place], [address] Chloride [Moles/Vol] 105 mmol/L Normal 98-107 [facility] Comment on above: Performed By: #### L 100.0100, L500.2500 ####[facility] [address] [place], [address] CO2 [Moles/Vol] 24.0 mmol/L Normal 21.0-32.0 [facility] Comment on above: Performed By: #### L 100.0100, L500.2500 ####[facility] [address] [place], [address] Creatinine [Mass/Vol] 6.32 mg/dL High 0.70-1.30 [facility] Comment on above: Result Comment: The validity of the calculated GFR GFRAA in patients over70 years has not been determined. Clinical correlation isessential. Performed By: #### L 100.0100, L500.2500 ####[facility] [address] [place], [address] ECRCL 17.97 ml/min Normal [facility] Comment on above: Performed By: #### L 100.0100, L500.2500 ####[facility] [address] [place], [address] EST GFR - AA 13 mL/min Low >60 [facility] Comment on above: Result Comment: Afri can Japanese GFR Calc Performed By: #### L 100.0100, L500.2500 ####[facility] [address] [place], [address] GAP 7 Normal 5-15 [facility] Comment on above: Performed By: #### L 100.0100, L500.2500 ####[facility] [address] [place], [address] GFR/1.73 sq M.predicted among non-blacks MDRD (S/P/Bld) [Vol rate/Area] 10 mL/min/{1.73_m2} Low >[address] [facility] Comment on above: Result Comment: Non- GFR Calc Performed By: #### L 100.0100, L500.2500 ####[facility] [address] [place], [address] Glucose [Mass/Vol] 264 mg/dL High 74-106 [facility] Comment on above: Result Comment: Gluc ose result greater than or equal to 200 mg/dLsuggests DIABETES MELLITUS per A.D.A. criteria. Performed By: #### L 100.0100, L500.2500 ####[facility] [address] [place], [address] Potassium [Moles/Vol] 3.7 mmol/L Normal 3.5-5.1 [facility] Comment on above: Performed By: #### L 100.0100, L500.2500 ####[facility] [address] [place], [address] Sodium [Moles/Vol] 136 mmol/L Normal 136-145 [facility] Comment on above: Performed By: #### L 100.0100, L500.2500 ####[facility] [address] [place], [address] Urea nitrogen [Mass/Vol] 54 mg/dL High 7-18 [facility] Comment on above: Performed By: #### L 100.0100, L500.2500 ####[facility] [address] [place], [address] CBC W/Diff, Automatedon 10-3 0-2024 Absolute Lymph 0.84 X10 3/uL Normal 0.83-4.51 [facility] Comment on above: Performed By: #### L 100.0100, L500.2500 ####[facility] [address] [place], [address] Absolute Neut 7.0 X10 3/uL Normal 2.0-7.7 [facility] Comment on above: Performed By: #### L 100.0100, L500.2500 ####[facility] [address] [place], [address] Basophils/100 WBC (Bld) 0.5 % Normal 0-1 [facility] Comment on above: Performed By: #### L 100.0100, L500.2500 ####[facility] [address] [place], [address] Eosinophils/100 WBC (Bld) 4.3 % Normal 0-5 [facility] Comment on above: Performed By: #### L 100.0100, L500.2500 ####[facility] [address] [place], [address] Erythrocyte distribution width (RBC) [Ratio] 13.4 % Normal 11.6-14.6 [facility] Comment on above: Performed By: #### L 100.0100, L500.2500 ####[facility] [address] [place], [address] Hematocrit (Bld) [Volume fraction] 24.0 % Low 40-54 [facility] Comment on above: Performed By: #### L 100.0100, L500.2500 ####[facility] [address] [place], [address] Hemoglobin (Bld) [Mass/Vol] 7.7 g/dL Low 13.0-16. 5 [facility] Comment on above: Performed By: #### L 100.0100, L500.2500 ####[facility] [address] [place], [address] IG% 0.600 Normal 0.0-0.9 [facility] Comment on above: Result Comment: IG% - Immature Granulocytes (promyelocytes, myelocytes andmetamyelocytes) > 1% indicates that a LEFT SHIFT is Present. Performed By: #### L 100.0100, L500.2500 ####[facility] [address] [place], [address] Lymphocytes/100 WBC (Bld) 9.0 % Low 19-41 [facility] Comment on above: Performed By: #### L 100.0100, L500.2500 ####[facility] [address] [place], [address] MCH (RBC) [Entitic mass] 26.9 pg Low 27.0-32.0 [facility] Comment on above: Performed By: #### L 100.0100, L500.2500 ####[facility] [address] [place], [address] MCHC (RBC) [Mass/Vol] 32.1 g/dL Normal 32-36 [facility] Comment on above: Performed By: #### L 100.0100, L500.2500 ####[facility] [address] [place], [address] MCV (RBC) [Entitic vol] 83.9 fL Normal 80-94 [facility] Comment on above: Performed By: #### L 100.0100, L500.2500 ####[facility] [address] [place], [address] Monocytes/100 WBC (Bld) 10.1 % High 0-10 [facility] Comment on above: Performed By: #### L 100.0100, L500.2500 ####[facility] [address] [place], [address] Neutrophils/100 WBC (Bld) 75.5 % High 47-70 [facility] Comment on above: Performed By: #### L 100.0100, L500.2500 ####[facility] [address] [place], [address] Nucleated RBC (Bld) [#/Vol] 0 10*3/uL Normal 0-5 [facility] Comment on above: Performed By: #### L 100.0100, L500.2500 ####[facility] [address] [place], [address] Platelet mean volume (Bld) [Entitic vol] 9.5 fL Normal 6.2-12.0 [facility] Comment on above: Performed By: #### L 100.0100, L500.2500 ####[facility] [address] [place], [address] Platelets (Bld) [#/Vol] 270 10*3/uL Normal 150-450 [facility] Comment on above: Performed By: #### L 100.0100, L500.2500 ####[facility] [address] [place], [address] RBC (Bld) [#/Vol] 2.86 10*6/uL Low 4.6-6.2 [facility] Comment on above: Performed By: #### L 100.0100, L500.2500 ####[facility] [address] [place], [address] RDW SD 41.4 fl Normal 35.1-43.9 [facility] Comment on above: Performed By: #### L 100.0100, L500.2500 ####[facility] [address] [place], [address] WBC (Bld) [#/Vol] 9.3 10*3/uL Normal 4.4-11.0 [facility] Comment on above: Performed By: #### L 100.0100, L500.2500 ####[facility] [address] [place], [address] Consultation - Infectious Dx on 01-28-2024 Consultation - Infectious Dx Normal [facility] Vancomycin, Random Levelon 1 VANCO, RANDOM 19.1 ug/mL High 0.0-15.0 [facility] Comment on above: Result Comment: VANC OMYCIN STANDARD DRUG THERAPY: CRITICAL VALUE IS > 15.0 mg/LVANCOMYCIN HIGH INTENSITY THERAPY: CRITICAL VALUE IS > 20.0 mg/LPLEASE CONTACT PHARMACY SERVICES (#8391) FOR INTERPRETATIONOF RESULTS. THIS RESULT DOES NOT REPRESENT A PEAK OR TROUGHLEVEL FOR THIS DRUG. Performed By: #### L 501.8850 ####[facility] [address] [place], [address] BC GPC IDon 01-27-2024 BC GPC ID Normal [facility] Comment on above: Performed By: #### M 100.636, M200.1000 ####[facility] [address] [place], [address] Basic Metabolic Profile (BMP )on 01-27-2024 BUN/CRE 9.0 RATIO Low 10-20 [facility] Comment on above: Performed By: #### L 100.0100, L500.2500 ####[facility] [address] [place], [address] CA,Total 8.7 mg/dL Normal 8.5-10.1 [facility] Comment on above: Performed By: #### L 100.0100, L500.2500 ####[facility] [address] [place], [address] Chloride [Moles/Vol] 104 mmol/L Normal 98-107 [facility] Comment on above: Performed By: #### L 100.0100, L500.2500 ####[facility] [address] [place], [address] CO2 [Moles/Vol] 26.0 mmol/L Normal 21.0-32.0 [facility] Comment on above: Performed By: #### L 100.0100, L500.2500 ####[facility] [address] [place], [address] Creatinine [Mass/Vol] 5.92 mg/dL High 0.70-1.30 [facility] Comment on above: Result Comment: The validity of the calculated GFR GFRAA in patients over70 years has not been determined. Clinical correlation isessential. Performed By: #### L 100.0100, L500.2500 ####[facility] [address] [place], [address] ECRCL 19.46 ml/min Normal [facility] Comment on above: Performed By: #### L 100.0100, L500.2500 ####[facility] [address] [place], [address] EST GFR - AA 14 mL/min Low >60 [facility] Comment on above: Result Comment: Afri can Japanese GFR Calc Performed By: #### L 100.0100, L500.2500 ####[facility] [address] [place], [address] GAP 7 Normal 5-15 [facility] Comment on above: Performed By: #### L 100.0100, L500.2500 ####[facility] [address] [place], [address] GFR/1.73 sq M.predicted among non-blacks MDRD (S/P/Bld) [Vol rate/Area] 11 mL/min/{1.73_m2} Low >[address] [facility] Comment on above: Result Comment: Non- GFR Calc Performed By: #### L 100.0100, L500.2500 ####[facility] [address] [place], [address] Glucose [Mass/Vol] 76 mg/dL Normal 74-106 [facility] Comment on above: Performed By: #### L 100.0100, L500.2500 ####[facility] [address] [place], [address] Potassium [Moles/Vol] 3.4 mmol/L Low 3.5-5.1 [facility] Comment on above: Performed By: #### L 100.0100, L500.2500 ####[facility] [address] [place], [address] Sodium [Moles/Vol] 137 mmol/L Normal 136-145 [facility] Comment on above: Performed By: #### L 100.0100, L500.2500 ####[facility] [address] [place], [address] Urea nitrogen [Mass/Vol] 53 mg/dL High 7-18 [facility] Comment on above: Performed By: #### L 100.0100, L500.2500 ####[facility] [address] [place], [address] CBC W/Diff, Automatedon 10-2 Absolute Lymph 1.03 X10 3/uL Normal 0.83-4.51 [facility] Comment on above: Performed By: #### L 100.0100, L500.2500 ####[facility] [address] [place], [address] Absolute Neut 9.9 X10 3/uL High 2.0-7.7 [facility] Comment on above: Performed By: #### L 100.0100, L500.2500 ####[facility] [address] [place], [address] Basophils/100 WBC (Bld) 0.6 % Normal 0-1 [facility] Comment on above: Performed By: #### L 100.0100, L500.2500 ####[facility] [address] [place], [address] Eosinophils/100 WBC (Bld) 2.8 % Normal 0-5 [facility] Comment on above: Performed By: #### L 100.0100, L500.2500 ####[facility] [address] [place], [address] Erythrocyte distribution width (RBC) [Ratio] 13.5 % Normal 11.6-14.6 [facility] Comment on above: Performed By: #### L 100.0100, L500.2500 ####[facility] [address] [place], [address] Hematocrit (Bld) [Volume fraction] 24.1 % Low 40-54 [facility] Comment on above: Performed By: #### L 100.0100, L500.2500 ####[facility] [address] [place], [address] Hemoglobin (Bld) [Mass/Vol] 7.7 g/dL Low 13.0-16. 5 [facility] Comment on above: Performed By: #### L 100.0100, L500.2500 ####[facility] [address] [place], [address] IG% 0.300 Normal 0.0-0.9 [facility] Comment on above: Result Comment: IG% - Immature Granulocytes (promyelocytes, myelocytes andmetamyelocytes) > 1% indicates that a LEFT SHIFT is Present. Performed By: #### L 100.0100, L500.2500 ####[facility] [address] [place], [address] Lymphocytes/100 WBC (Bld) 8.3 % Low 19-41 [facility] Comment on above: Performed By: #### L 100.0100, L500.2500 ####[facility] [address] [place], [address] MCH (RBC) [Entitic mass] 26.7 pg Low 27.0-32.0 [facility] Comment on above: Performed By: #### L 100.0100, L500.2500 ####[facility] [address] [place], [address] MCHC (RBC) [Mass/Vol] 32.0 g/dL Normal 32-36 [facility] Comment on above: Performed By: #### L 100.0100, L500.2500 ####[facility] [address] [place], [address] MCV (RBC) [Entitic vol] 83.7 fL Normal 80-94 [facility] Comment on above: Performed By: #### L 100.0100, L500.2500 ####[facility] [address] [place], [address] Monocytes/100 WBC (Bld) 8.1 % Normal 0-10 [facility] Comment on above: Performed By: #### L 100.0100, L500.2500 ####[facility] [address] [place], [address] Neutrophils/100 WBC (Bld) 79.9 % High 47-70 [facility] Comment on above: Performed By: #### L 100.0100, L500.2500 ####[facility] [address] [place], [address] Nucleated RBC (Bld) [#/Vol] 0 10*3/uL Normal 0-5 [facility] Comment on above: Performed By: #### L 100.0100, L500.2500 ####[facility] [address] [place], [address] Platelet mean volume (Bld) [Entitic vol] 9.7 fL Normal 6.2-12.0 [facility] Comment on above: Performed By: #### L 100.0100, L500.2500 ####[facility] [address] [place], [address] Platelets (Bld) [#/Vol] 255 10*3/uL Normal 150-450 [facility] Comment on above: Performed By: #### L 100.0100, L500.2500 ####[facility] [address] [place], [address] RBC (Bld) [#/Vol] 2.88 10*6/uL Low 4.6-6.2 [facility] Comment on above: Performed By: #### L 100.0100, L500.2500 ####[facility] [address] [place], [address] RDW SD 40.6 fl Normal 35.1-43.9 [facility] Comment on above: Performed By: #### L 100.0100, L500.2500 ####[facility] [address] [place], [address] WBC (Bld) [#/Vol] 12.3 10*3/uL High 4.4-11.0 [facility] Comment on above: Performed By: #### L 100.0100, L500.2500 ####[facility] [address] [place], [address] MR/PN.GIon 01-27-2024 MR/PN.GI Normal [facility] Urine Cultureon 01-27-2024 URC Culture exhibits no growth. Normal [facility] Comment on above: Performed By: #### M 100.2200 ####[facility] [address] [place], [address] Vancomycin, Random Levelon 1 VANCO, RANDOM 24.6 ug/mL High 0.0-15.0 [facility] Comment on above: Result Comment: VANC OMYCIN STANDARD DRUG THERAPY: CRITICAL VALUE IS > 15.0 mg/LVANCOMYCIN HIGH INTENSITY THERAPY: CRITICAL VALUE IS > 20.0 mg/LPLEASE CONTACT PHARMACY SERVICES (#6621) FOR INTERPRETATIONOF RESULTS. THIS RESULT DOES NOT REPRESENT A PEAK OR TROUGHLEVEL FOR THIS DRUG. Performed By: #### L 501.8850 ####[facility] [address] [place], [address] Vitamin D 1,25-Dihydroxyon 1 VIT D 1,25 DIHY 17.0 pg/mL Abnormal 24.8-81.5 [facility] Comment on above: Result Comment: Perf ormed at: [facility] [address], [place] [id number] Director: Devyn Zabala MD, Phone: [phone] Performed By: #### L 500.2500, L3300.6516, L501.9493, L505.5000 ####[facility] [address] [place], [address] 12 Lead EKGon 01-26-2024 12 Lead EKG Normal [facility] Basic Metabolic Profile (BMP )on 01-26-2024 BUN/CRE 8.6 RATIO Low 10-20 [facility] Comment on above: Performed By: #### L 500.2500, L100.0100 ####[facility] [address] [place], [address] CA,Total 8.2 mg/dL Low 8.5-10.1 [facility] Comment on above: Performed By: #### L 500.2500, L100.0100 ####[facility] [address] [place], [address] Chloride [Moles/Vol] 99 mmol/L Normal 98-107 [facility] Comment on above: Performed By: #### L 500.2500, L100.0100 ####[facility] [address] [place], [address] CO2 [Moles/Vol] 19.0 mmol/L Low 21.0-32.0 [facility] Comment on above: Performed By: #### L 500.2500, L100.0100 ####[facility] [address] [place], [address] Creatinine [Mass/Vol] 7.78 mg/dL Invalid Interpretation Code 0.70-1.30 [facility] Comment on above: Result Comment: Crit ical Result(s) Called at: 04:29:01 01/26/2024 by: NoahBurns. RICHMOND GALAN rn icu. Results read back by same.The validity of the calculated GFR GFRAA in patients over70 years has not been determined. Clinical correlation isessential. Performed By: #### L 500.2500, L100.0100 ####[facility] [address] [place], [address] ECRCL 14.81 ml/min Normal [facility] Comment on above: Performed By: #### L 500.2500, L100.0100 ####[facility] [address] [place], [address] EST GFR - AA 10 mL/min Low >60 [facility] Comment on above: Result Comment: Afri can Japanese GFR Calc Performed By: #### L 500.2500, L100.0100 ####[facility] [address] [place], [address] GAP 13 Normal 5-15 [facility] Comment on above: Performed By: #### L 500.2500, L100.0100 ####[facility] [address] [place], [address] GFR/1.73 sq M.predicted among non-blacks MDRD (S/P/Bld) [Vol rate/Area] 8 mL/min/{1.73_m2} Low >60 [facility] Comment on above: Result Comment: Non- GFR Calc Performed By: #### L 500.2500, L100.0100 ####[facility] [address] [place], [address] Glucose [Mass/Vol] 319 mg/dL High 74-106 [facility] Comment on above: Result Comment: Gluc ose result greater than or equal to 200 mg/dLsuggests DIABETES MELLITUS per A.D.A. criteria. Performed By: #### L 500.2500, L100.0100 ####[facility] [address] [place], [address] Potassium [Moles/Vol] 4.6 mmol/L Normal 3.5-5.1 [facility] Comment on above: Performed By: #### L 500.2500, L100.0100 ####[facility] [address] [place], [address] Sodium [Moles/Vol] 130 mmol/L Low 136-145 [facility] Comment on above: Performed By: #### L 500.2500, L100.0100 ####[facility] [address] [place], [address] Urea nitrogen [Mass/Vol] 67 mg/dL High 7-18 [facility] Comment on above: Performed By: #### L 500.2500, L100.0100 ####[facility] [address] [place], [address] Bedside Glucoseon 01-26-2024 FINGERSTICK GLU 248 mg/dL High 74-106 [facility] Comment on above: Result Comment: EDUARDO GEMENT OF PATIENT CARE PER NURSING PROTOCOL Performed By: #### L 501.080 ####[facility] [address] [place], [address] FINGERSTICK GLU 389 mg/dL High 74-106 [facility] Comment on above: Result Comment: EDUARDO GEMENT OF PATIENT CARE PER NURSING PROTOCOL Performed By: #### L 501.080 ####[facility] [address] [place], [address] FINGERSTICK GLU 312 mg/dL High 74-106 [facility] Comment on above: Result Comment: EDUARDO GEMENT OF PATIENT CARE PER NURSING PROTOCOL Performed By: #### L 501.080 ####[facility] [address] [place], [address] CBC W/Diff, Automatedon 10-2 Absolute Lymph 0.68 X10 3/uL Low 0.83-4.51 [facility] Comment on above: Performed By: #### L 500.2500, L100.0100 ####[facility] [address] [place], [address] Absolute Neut 14.8 X10 3/uL High 2.0-7.7 [facility] Comment on above: Performed By: #### L 500.2500, L100.0100 ####[facility] [address] [place], [address] Basophils/100 WBC (Bld) 0.6 % Normal 0-1 [facility] Comment on above: Performed By: #### L 500.2500, L100.0100 ####[facility] [address] [place], [address] Eosinophils/100 WBC (Bld) 0.5 % Normal 0-5 [facility] Comment on above: Performed By: #### L 500.2500, L100.0100 ####[facility] [address] [place], [address] Erythrocyte distribution width (RBC) [Ratio] 13.2 % Normal 11.6-14.6 [facility] Comment on above: Performed By: #### L 500.2500, L100.0100 ####[facility] [address] [place], [address] Hematocrit (Bld) [Volume fraction] 23.1 % Low 40-54 [facility] Comment on above: Performed By: #### L 500.2500, L100.0100 ####[facility] [address] [place], [address] Hemoglobin (Bld) [Mass/Vol] 7.4 g/dL Low 13.0-16. 5 [facility] Comment on above: Performed By: #### L 500.2500, L100.0100 ####[facility] [address] [place], [address] IG% 0.800 Normal 0.0-0.9 [facility] Comment on above: Result Comment: IG% - Immature Granulocytes (promyelocytes, myelocytes andmetamyelocytes) > 1% indicates that a LEFT SHIFT is Present. Performed By: #### L 500.2500, L100.0100 ####[facility] [address] [place], [address] Lymphocytes/100 WBC (Bld) 4.1 % Low 19-41 [facility] Comment on above: Performed By: #### L 500.2500, L100.0100 ####[facility] [address] [place], [address] MCH (RBC) [Entitic mass] 27.0 pg Normal 27.0-32.0 [facility] Comment on above: Performed By: #### L 500.2500, L100.0100 ####[facility] [address] [place], [address] MCHC (RBC) [Mass/Vol] 32.0 g/dL Normal 32-36 [facility] Comment on above: Performed By: #### L 500.2500, L100.0100 ####[facility] [address] [place], [address] MCV (RBC) [Entitic vol] 84.3 fL Normal 80-94 [facility] Comment on above: Performed By: #### L 500.2500, L100.0100 ####[facility] [address] [place], [address] Monocytes/100 WBC (Bld) 5.8 % Normal 0-10 [facility] Comment on above: Performed By: #### L 500.2500, L100.0100 ####[facility] [address] [place], [address] Neutrophils/100 WBC (Bld) 88.2 % High 47-70 [facility] Comment on above: Performed By: #### L 500.2500, L100.0100 ####[facility] [address] [place], [address] Nucleated RBC (Bld) [#/Vol] 0 10*3/uL Normal 0-5 [facility] Comment on above: Performed By: #### L 500.2500, L100.0100 ####[facility] [address] [place], [address] Platelet mean volume (Bld) [Entitic vol] 9.7 fL Normal 6.2-12.0 [facility] Comment on above: Performed By: #### L 500.2500, L100.0100 ####[facility] [address] [place], [address] Platelets (Bld) [#/Vol] 223 10*3/uL Normal 150-450 [facility] Comment on above: Performed By: #### L 500.2500, L100.0100 ####[facility] [address] [place], [address] RBC (Bld) [#/Vol] 2.74 10*6/uL Low 4.6-6.2 [facility] Comment on above: Performed By: #### L 500.2500, L100.0100 ####[facility] [address] [place], [address] RDW SD 40.6 fl Normal 35.1-43.9 [facility] Comment on above: Performed By: #### L 500.2500, L100.0100 ####[facility] [address] [place], [address] WBC (Bld) [#/Vol] 16.7 10*3/uL High 4.4-11.0 [facility] Comment on above: Performed By: #### L 500.2500, L100.0100 ####[facility] [address] [place], [address] MR/CON.PCM.GIon 01-26-2024 MR/CON.PCM.GI Normal [facility] Vitamin B12on 01-26-2024 Cobalamin (Vitamin B12) [Mass/Vol] 794 pg/mL Normal 211-911 [facility] Comment on above: Performed By: #### L 506.0250, L503.6030, L503.6550, L503.0105 ####[facility] [address] [place], [address] 12 Lead EKGon 01-25-2024 12 Lead EKG Normal [facility] BRCon 01-25-2024 RC Normal [facility] Comment on above: Result Comment: [id number] BP RC TRANSFUSED 01/26/24 0849 Performed By: #### B RC, BTS ####[facility] [address] [place], [address] Basic Metabolic Profile (BMP )on 01-25-2024 BUN/CRE 8.8 RATIO Low 01-17 [facility] Comment on above: Performed By: #### L 100.0100, L500.2500 ####[facility] [address] [place], [address] CA,Total 8.7 mg/dL Normal 8.5-10.1 [facility] Comment on above: Performed By: #### L 100.0100, L500.2500 ####[facility] [address] [place], [address] Chloride [Moles/Vol] 105 mmol/L Normal 98-107 [facility] Comment on above: Performed By: #### L 100.0100, L500.2500 ####[facility] [address] [place], [address] CO2 [Moles/Vol] 23.0 mmol/L Normal 21.0-32.0 [facility] Comment on above: Performed By: #### L 100.0100, L500.2500 ####[facility] [address] [place], [address] Creatinine [Mass/Vol] 6.71 mg/dL High 0.70-1.30 [facility] Comment on above: Result Comment: Crimichael ical Result(s) Called at: 06:41:00 01/25/2024 by: CAROL to Ana David. Results read back by same.The validity of the calculated GFR GFRAA in patients over70 years has not been determined. Clinical correlation isessential. Performed By: #### L 100.0100, L500.2500 ####[facility] [address] [place], [address] ECRCL 17.17 ml/min Normal [facility] Comment on above: Performed By: #### L 100.0100, L500.2500 ####[facility] [address] [place], [address] EST GFR - AA 12 mL/min Low >60 [facility] Comment on above: Result Comment: Afri can Japanese GFR Calc Performed By: #### L 100.0100, L500.2500 ####[facility] [address] [place], [address] GAP 7 Normal 5-15 [facility] Comment on above: Performed By: #### L 100.0100, L500.2500 ####[facility] [address] [place], [address] GFR/1.73 sq M.predicted among non-blacks MDRD (S/P/Bld) [Vol rate/Area] 10 mL/min/{1.73_m2} Low >[address] [facility] Comment on above: Result Comment: Non- GFR Calc Performed By: #### L 100.0100, L500.2500 ####[facility] [address] [place], [address] Glucose [Mass/Vol] 83 mg/dL Normal 74-106 [facility] Comment on above: Performed By: #### L 100.0100, L500.2500 ####[facility] [address] [place], [address] Potassium [Moles/Vol] 4.5 mmol/L Normal 3.5-5.1 [facility] Comment on above: Result Comment: Mode rate Hemolysis, Result may be falsely increased. Performed By: #### L 100.0100, L500.2500 ####[facility] [address] [place], [address] Sodium [Moles/Vol] 134 mmol/L Low 136-145 [facility] Comment on above: Performed By: #### L 100.0100, L500.2500 ####[facility] [address] [place], [address] Urea nitrogen [Mass/Vol] 59 mg/dL High 7-18 [facility] Comment on above: Performed By: #### L 100.0100, L500.2500 ####[facility] [address] [place], [address] CBC W/Diff, Automatedon 10-2 -2023 Absolute Lymph 1.06 X10 3/uL Normal 0.83-4.51 [facility] Comment on above: Performed By: #### L 100.0100, L500.2500 ####[facility] [address] [place], [address] Absolute Neut 12.2 X10 3/uL High 2.0-7.7 [facility] Comment on above: Performed By: #### L 100.0100, L500.2500 ####[facility] [address] [place], [address] Basophils/100 WBC (Bld) 0.3 % Normal 0-1 [facility] Comment on above: Performed By: #### L 100.0100, L500.2500 ####[facility] [address] [place], [address] Eosinophils/100 WBC (Bld) 0.4 % Normal 0-5 [facility] Comment on above: Performed By: #### L 100.0100, L500.2500 ####[facility] [address] [place], [address] Erythrocyte distribution width (RBC) [Ratio] 13.3 % Normal 11.6-14.6 [facility] Comment on above: Performed By: #### L 100.0100, L500.2500 ####[facility] [address] [place], [address] Hematocrit (Bld) [Volume fraction] 22.2 % Low 40-54 [facility] Comment on above: Performed By: #### L 100.0100, L500.2500 ####[facility] [address] [place], [address] Hemoglobin (Bld) [Mass/Vol] 7.2 g/dL Low 13.0-16. 5 [facility] Comment on above: Performed By: #### L 100.0100, L500.2500 ####[facility] [address] [place], [address] IG% 0.500 Normal 0.0-0.9 [facility] Comment on above: Result Comment: IG% - Immature Granulocytes (promyelocytes, myelocytes andmetamyelocytes) > 1% indicates that a LEFT SHIFT is Present. Performed By: #### L 100.0100, L500.2500 ####[facility] [address] [place], [address] Lymphocytes/100 WBC (Bld) 7.1 % Low 19-41 [facility] Comment on above: Performed By: #### L 100.0100, L500.2500 ####[facility] [address] [place], [address] MCH (RBC) [Entitic mass] 27.2 pg Normal 27.0-32.0 [facility] Comment on above: Performed By: #### L 100.0100, L500.2500 ####[facility] [address] [place], [address] MCHC (RBC) [Mass/Vol] 32.4 g/dL Normal 32-36 [facility] Comment on above: Performed By: #### L 100.0100, L500.2500 ####[facility] [address] [place], [address] MCV (RBC) [Entitic vol] 83.8 fL Normal 80-94 [facility] Comment on above: Performed By: #### L 100.0100, L500.2500 ####[facility] [address] [place], [address] Monocytes/100 WBC (Bld) 9.7 % Normal 0-10 [facility] Comment on above: Performed By: #### L 100.0100, L500.2500 ####[facility] [address] [place], [address] Neutrophils/100 WBC (Bld) 82.0 % High 47-70 [facility] Comment on above: Performed By: #### L 100.0100, L500.2500 ####[facility] [address] [place], [address] Nucleated RBC (Bld) [#/Vol] 0 10*3/uL Normal 0-5 [facility] Comment on above: Performed By: #### L 100.0100, L500.2500 ####[facility] [address] [place], [address] Platelet mean volume (Bld) [Entitic vol] 9.2 fL Normal 6.2-12.0 [facility] Comment on above: Performed By: #### L 100.0100, L500.2500 ####[facility] [address] [place], [address] Platelets (Bld) [#/Vol] 262 10*3/uL Normal 150-450 [facility] Comment on above: Performed By: #### L 100.0100, L500.2500 ####[facility] [address] [place], [address] RBC (Bld) [#/Vol] 2.65 10*6/uL Low 4.6-6.2 [facility] Comment on above: Performed By: #### L 100.0100, L500.2500 ####[facility] [address] [place], [address] RDW SD 40.8 fl Normal 35.1-43.9 [facility] Comment on above: Performed By: #### L 100.0100, L500.2500 ####[facility] [address] [place], [address] WBC (Bld) [#/Vol] 14.8 10*3/uL High 4.4-11.0 [facility] Comment on above: Performed By: #### L 100.0100, L500.2500 ####[facility] [address] [place], [address] Chest 1 View (Portable)on Chest 1 View (Portable) Normal [facility] Ferritinon 01-25-2024 Ferritin [Mass/Vol] 63 ng/mL Normal 26-388 [facility] Comment on above: Order Comment: Has Kalin navas had X-rays with Contrast this admission? YN Performed By: #### L 506.0250, L503.6030, L503.6550, L503.0105 ####[facility] [address] [place], [address] Folates, (Folic Acid)on 12-30 FOLATES 6.90 ng/mL Normal 3.1-55.4 [facility] Comment on above: Order Comment: Has Kalin navas had X-rays with Contrast this admission? YN Result Comment: Mode rate Hemolysis, Result may be falsely increased. Performed By: #### L 506.0250, L503.6030, L503.6550, L503.0105 ####[facility] [address] [place], [address] Iron+Iron Binding Capacityon 01-25-2024 Iron [Mass/Vol] 13 ug/dL Low 65-175 [facility] Comment on above: Order Comment: Has Kalin naavs had X-rays with Contrast this admission? YN Result Comment: Mode rate Hemolysis, Result may be falsely increased. Performed By: #### L 506.0250, L503.6030, L503.6550, L503.0105 ####[facility] [address] [place], [address] IRON SATURATION 5.6 Low 15.0-55.0 [facility] Comment on above: Order Comment: Has Kalin navas had X-rays with Contrast this admission? YN Performed By: #### L 506.0250, L503.6030, L503.6550, L503.0105 ####[facility] [address] [place], [address] TIBC 232 ug/dL Low 250-450 [facility] Comment on above: Order Comment: Has Kalin navas had X-rays with Contrast this admission? YN Result Comment: Mode rate Hemolysis, Result may be falsely increased. Performed By: #### L 506.0250, L503.6030, L503.6550, L503.0105 ####[facility] [address] [place], [address] M100.019on 01-25-2024 M100.019 Negative Normal [facility] Comment on above: Performed By: #### M 100.019 ####[facility] [address] [place], [address] RESPIRATORY PANEL MOLECULARo n 01-25-2024 RP PANEL Normal [facility] Comment on above: Performed By: #### M 100.638 ####[facility] [address] [place], [address] Type AND Screenon 01-25-2024 Ab SCREEN GEL Negative Normal [facility] Comment on above: Order Comment: CMV N EG? NNumber of units to transfuse: 1Reason for Ordering Blood: ChronicIs there symptomatic anemia? Alireza the blood/blood products to be transfused? YIs the patient having/had surgery? NWhen ReadyNY Performed By: #### B RC, BTS ####[facility] [address] [place], [address] Urinalysis, Completeon 01-24 BACTERIA 1+ /hpf Normal None Seen [facility] Comment on above: Order Comment: Urine , Random Performed By: #### L 400.0001 ####[facility] [address] [place], [address] BILIRUBIN URINE Negative Normal Negative [facility] Comment on above: Order Comment: Urine , Random Performed By: #### L 400.0001 ####[facility] [address] [place], [address] Clarity (U) Clear Normal Clear [facility] Comment on above: Order Comment: Urine , Random Performed By: #### L 400.0001 ####[facility] [address] [place], [address] Color (U) Straw Normal Yellow [facility] Comment on above: Order Comment: Urine , Random Performed By: #### L 400.0001 ####[facility] [address] [place], [address] GLUCOSE, UR Normal Normal Normal [facility] Comment on above: Order Comment: Urine , Random Performed By: #### L 400.0001 ####[facility] [address] [place], [address] KETONE UR Negative Normal Negative [facility] [facility] Comment on above: Order Comment: Urine , Random Performed By: #### L 400.0001 ####[facility] [address] [place], [address] LEUK ESTERASE Negative Normal Negative [facility] Comment on above: Order Comment: Urine , Random Performed By: #### L 400.0001 ####[facility] [address] [place], [address] Nitrite Ql (U) Negative Normal Negative [facility] Comment on above: Order Comment: Urine , Random Performed By: #### L 400.0001 ####[facility] [address] [place], [address] OCCULT BLOOD-UR 10 /ul Abnormal Negative [facility] Comment on above: Order Comment: Urine , Random Performed By: #### L 400.0001 ####[facility] [address] [place], [address] pH UR 6.0 Normal 5.0 - 8.0 [facility] Comment on above: Order Comment: Urine , Random Performed By: #### L 400.0001 ####[facility] [address] [place], [address] PROT DIPSTX 100 mg/dl Abnormal Negative [facility] Comment on above: Order Comment: Urine , Random Performed By: #### L 400.0001 ####[facility] [address] [place], [address] SP.GR. DIPSTX 1.020 Normal 1.002-1.030 [facility] Comment on above: Order Comment: Urine , Random Performed By: #### L 400.0001 ####[facility] [address] [place], [address] UROBILI Normal Normal Normal [facility] Comment on above: Order Comment: Urine , Random Performed By: #### L 400.0001 ####[facility] [address] [place], [address] EPI,SQUAMOUS 0 SEEN Normal 0-5 [facility] Comment on above: Order Comment: Urine , Random Performed By: #### L 400.0001 ####[facility] [address] [place], [address] Mucus Ql (Urine sed) 0 SEEN Normal [facility] Comment on above: Order Comment: Urine , Random Performed By: #### L 400.0001 ####[facility] [address] [place], [address] RBC 0 SEEN Normal 0-5 [facility] Comment on above: Order Comment: Urine , Random Performed By: #### L 400.0001 ####[facility] [address] [place], [address] WBC 0 SEEN Normal 0-5 [facility] Comment on above: Order Comment: Urine , Random Performed By: #### L 400.0001 ####[facility] [address] [place], [address] 12 Lead EKGon 01-24-2024 12 Lead EKG Normal [facility] BNP,B-Type NATRIURETIC PEPTI Tony 01-24-2024 Natriuretic peptide B (Bld) [Mass/Vol] 1030.6 pg/mL High 0-100 [facility] Comment on above: Performed By: #### L 503.6620 ####[facility] [address] [place], [address] Basic Metabolic Profile (BMP )on 01-24-2024 BUN Normal 7-18 [facility] Comment on above: Order Comment: Call MD with results STAT Result Comment: Dano parada via OM: Pt no longer on insulin drip Performed By: #### L 500.2500 ####[facility] [address] [place], [address] BUN/CRE Normal 10-20 [facility] Comment on above: Order Comment: Call MD with results STAT Result Comment: Canc elled via OM: Pt no longer on insulin drip Performed By: #### L 500.2500 ####[facility] [address] [place], [address] CA,Total Normal 8.5-10.1 [facility] Comment on above: Order Comment: Call MD with results STAT Result Comment: Canc elled via OM: Pt no longer on insulin drip Performed By: #### L 500.2500 ####[facility] [address] [place], [address] CL Normal 98-107 [facility] Comment on above: Order Comment: Call MD with results STAT Result Comment: Canc elled via OM: Pt no longer on insulin drip Performed By: #### L 500.2500 ####[facility] [address] [place], [address] CO2 Normal 21.0-32.0 [facility] Comment on above: Order Comment: Call MD with results STAT Result Comment: Canc elled via OM: Pt no longer on insulin drip Performed By: #### L 500.2500 ####[facility] [address] [place], [address] CREAT,SERUM Normal 0.70-1.30 [facility] Comment on above: Order Comment: Call MD with results STAT Result Comment: Canc elled via OM: Pt no longer on insulin drip Performed By: #### L 500.2500 ####[facility] [address] [place], [address] EST GFR Normal >60 [facility] Comment on above: Order Comment: Call MD with results STAT Result Comment: Canc elled via OM: Pt no longer on insulin drip Performed By: #### L 500.2500 ####[facility] [address] [place], [address] EST GFR - AA Normal >60 [facility] Comment on above: Order Comment: Call MD with results STAT Result Comment: Canc elled via OM: Pt no longer on insulin drip Performed By: #### L 500.2500 ####[facility] [address] [place], [address] GAP Normal 5-15 [facility] Comment on above: Order Comment: Call MD with results STAT Result Comment: Canc elled via OM: Pt no longer on insulin drip Performed By: #### L 500.2500 ####[facility] [address] [place], [address] GLU Normal 74-106 [facility] Comment on above: Order Comment: Call MD with results STAT Result Comment: Canc elled via OM: Pt no longer on insulin drip Performed By: #### L 500.2500 ####[facility] [address] [place], [address] Potassium Normal 3.5-5.1 [facility] Comment on above: Order Comment: Call MD with results STAT Result Comment: Canc elled via OM: Pt no longer on insulin drip Performed By: #### L 500.2500 ####[facility] [address] [place], [address] Basic Metabolic Profile (BMP) Normal 136-145 [facility] Comment on above: Order Comment: Call MD with results STAT Result Comment: Canc elled via OM: Pt no longer on insulin drip Performed By: #### L 500.2500 ####[facility] [address] [place], [address] Bedside Glucoseon 01-24-2024 FINGERSTICK GLU 115 mg/dL High 74-106 [facility] Comment on above: Result Comment: EDUARDO JACOBO OF PATIENT CARE PER NURSING PROTOCOL Performed By: #### L 501.080 ####[facility] [address] [place], [address] CBC-Complete Blood Cnt No Di ffon 01-24-2024 Erythrocyte distribution width (RBC) [Ratio] 13.4 % Normal 11.6-14.6 [facility] Comment on above: Performed By: #### L 100.0500 ####[facility] [address] [place], [address] Hematocrit (Bld) [Volume fraction] 22.2 % Low 40-54 [facility] Comment on above: Performed By: #### L 100.0500 ####[facility] [address] [place], [address] Hemoglobin (Bld) [Mass/Vol] 7.3 g/dL Low 13.0-16. 5 [facility] Comment on above: Performed By: #### L 100.0500 ####[facility] [address] [place], [address] MCH (RBC) [Entitic mass] 27.0 pg Normal 27.0-32.0 [facility] Comment on above: Performed By: #### L 100.0500 ####[facility] [address] [place], [address] MCHC (RBC) [Mass/Vol] 32.9 g/dL Normal 32-36 [facility] Comment on above: Performed By: #### L 100.0500 ####[facility] [address] [place], [address] MCV (RBC) [Entitic vol] 82.2 fL Normal 80-94 [facility] Comment on above: Performed By: #### L 100.0500 ####[facility] [address] [place], [address] Platelet mean volume (Bld) [Entitic vol] 9.5 fL Normal 6.2-12.0 [facility] Comment on above: Performed By: #### L 100.0500 ####[facility] [address] [place], [address] Platelets (Bld) [#/Vol] 283 10*3/uL Normal 150-450 [facility] Comment on above: Performed By: #### L 100.0500 ####[facility] [address] [place], [address] RBC (Bld) [#/Vol] 2.70 10*6/uL Low 4.6-6.2 [facility] Comment on above: Performed By: #### L 100.0500 ####[facility] [address] [place], [address] RDW SD 40.1 fl Normal 35.1-43.9 [facility] Comment on above: Performed By: #### L 100.0500 ####[facility] [address] [place], [address] WBC (Bld) [#/Vol] 12.9 10*3/uL High 4.4-11.0 [facility] Comment on above: Performed By: #### L 100.0500 ####[facility] [address] [place], [address] Comprehensive Metabolic Prof [facility] 01-24-2024 Albumin [Mass/Vol] 3.0 g/dL Low 3.2-5.0 [facility] Comment on above: Performed By: #### L 500.4050, L501.2300 ####[facility] [address] [place], [address] Albumin/Globulin [Mass ratio] 1.0 {ratio} Normal 0.9-2.4 [facility] Comment on above: Performed By: #### L 500.4050, L501.2300 ####[facility] [address] [place], [address] ALK P 53 U/L Normal 45-117 [facility] Comment on above: Performed By: #### L 500.4050, L501.2300 ####[facility] [address] [place], [address] ALT [Catalytic activity/Vol] 26 U/L Normal 16-61 [facility] Comment on above: Performed By: #### L 500.4050, L501.2300 ####[facility] [address] [place], [address] AST [Catalytic activity/Vol] 49 U/L High 15-37 [facility] Comment on above: Performed By: #### L 500.4050, L501.2300 ####[facility] [address] [place], [address] Bilirubin [Mass/Vol] 0.30 mg/dL Normal 0.20-1.00 [facility] Comment on above: Result Comment: For patients on eltrombopag therapy, use of Dimension [place] TBIL is not recommended. Performed By: #### L 500.4050, L501.2300 ####[facility] [address] [place], [address] BUN/CRE 11.1 RATIO Normal 10-20 [facility] Comment on above: Performed By: #### L 500.4050, L501.2300 ####[facility] [address] [place], [address] CA,Total 8.4 mg/dL Low 8.5-10.1 [facility] Comment on above: Performed By: #### L 500.4050, L501.2300 ####[facility] [address] [place], [address] Chloride [Moles/Vol] 109 mmol/L High 98-107 [facility] Comment on above: Performed By: #### L 500.4050, L501.2300 ####[facility] [address] [place], [address] CO2 [Moles/Vol] 22.0 mmol/L Normal 21.0-32.0 [facility] Comment on above: Performed By: #### L 500.4050, L501.2300 ####[facility] [address] [place], [address] Creatinine [Mass/Vol] 4.40 mg/dL High 0.70-1.30 [facility] Comment on above: Result Comment: The validity of the calculated GFR GFRAA in patients over70 years has not been determined. Clinical correlation isessential. Performed By: #### L 500.4050, L501.2300 ####[facility] [address] [place], [address] ECRCL 25.97 ml/min Normal [facility] Comment on above: Performed By: #### L 500.4050, L501.2300 ####[facility] [address] [place], [address] EST GFR - AA 19 mL/min Low >60 [facility] Comment on above: Result Comment: Afri can Japanese GFR Calc Performed By: #### L 500.4050, L501.2300 ####[facility] [address] [place], [address] GAP 9 Normal 5-15 [facility] Comment on above: Performed By: #### L 500.4050, L501.2300 ####[facility] [address] [place], [address] GFR/1.73 sq M.predicted among non-blacks MDRD (S/P/Bld) [Vol rate/Area] 16 mL/min/{1.73_m2} Low >[address] [facility] Comment on above: Result Comment: Non- GFR Calc Performed By: #### L 500.4050, L501.2300 ####[facility] [address] [place], [address] Globulin (S) [Mass/Vol] 2.9 g/dL Normal 2.2-4.2 [facility] Comment on above: Performed By: #### L 500.4050, L501.2300 ####[facility] [address] [place], [address] Glucose [Mass/Vol] 100 mg/dL Normal 74-106 [facility] Comment on above: Result Comment: Fast ing Glucose result from 100 to 125 mg/dLsuggests IMPAIRED HOMEOSTASIS per A.D.A. criteria. Performed By: #### L 500.4050, L501.2300 ####[facility] [address] [place], [address] Potassium [Moles/Vol] 3.9 mmol/L Normal 3.5-5.1 [facility] Comment on above: Performed By: #### L 500.4050, L501.2300 ####[facility] [address] [place], [address] Sodium [Moles/Vol] 139 mmol/L Normal 136-145 [facility] Comment on above: Performed By: #### L 500.4050, L501.2300 ####[facility] [address] [place], [address] T PROT 5.9 g/dL Low 6.4-8.2 [facility] Comment on above: Performed By: #### L 500.4050, L501.2300 ####[facility] [address] [place], [address] Urea nitrogen [Mass/Vol] 49 mg/dL High 7-18 [facility] Comment on above: Performed By: #### L 500.4050, L501.2300 ####[facility] [address] [place], [address] Consultation - Intensiviston 01-24-2024 Consultation - Cdc Associate Normal [facility] Phosphoruson 01-24-2024 Phosphate [Mass/Vol] 4.9 mg/dL Normal 2.5-4.9 [facility] Comment on above: Performed By: #### L 500.4050, L501.2300 ####[facility] [address] [place], [address] 12 Lead EKGon 01-23-2024 12 Lead EKG Normal [facility] ACT Activated Clotting Timeo n 01-23-2024 ACTk CLOT TIME 250 sec High 74-137 [facility] Comment on above: Performed By: #### L 9100.0100 ####[facility] [address] [place], [address] ACTk CLOT TIME 177 sec High 74-137 [facility] Comment on above: Performed By: #### L 9100.0100 ####[facility] [address] [place], [address] Acetone Serumon 01-23-2024 ACETONE SERUM Negative Normal NEG [facility] Comment on above: Performed By: #### L 501.6900, L100.0100 ####[facility] [address] [place], [address] BNP,B-Type NATRIURETIC PEPTI Tony 01-23-2024 Natriuretic peptide B (Bld) [Mass/Vol] 1063.7 pg/mL High 0-100 [facility] Comment on above: Performed By: #### L 503.6620 ####[facility] [address] [place], [address] Basic Metabolic Profile (BMP )on 01-23-2024 BUN Normal 7-18 [facility] Comment on above: Order Comment: Call with results STAT Result Comment: @SUKI ADAMS SAID THAT THIS PATIENT IS ON AN INSULIN@DRIP. FORGOT TO CANCEL THESE TESTS. Performed By: #### L 500.2500 ####[facility] [address] [place], [address] BUN/CRE Normal 10-20 [facility] Comment on above: Order Comment: Call MD with results STAT Result Comment: @SUKI IE SAID THAT THIS PATIENT IS ON AN INSULIN@DRIP. FORGOT TO CANCEL THESE TESTS. Performed By: #### L 500.2500 ####[facility] [address] [place], [address] CA,Total Normal 8.5-10.1 [facility] Comment on above: Order Comment: Call MD with results STAT Result Comment: @SUKI IE SAID THAT THIS PATIENT IS ON AN INSULIN@DRIP. FORGOT TO CANCEL THESE TESTS. Performed By: #### L 500.2500 ####[facility] [address] [place], [address] CL Normal 98-107 [facility] Comment on above: Order Comment: Call MD with results STAT Result Comment: @SUKI IE SAID THAT THIS PATIENT IS ON AN INSULIN@DRIP. FORGOT TO CANCEL THESE TESTS. Performed By: #### L 500.2500 ####[facility] [address] [place], [address] CO2 Normal 21.0-32.0 [facility] Comment on above: Order Comment: Call with results STAT Result Comment: @SUKI IE SAID THAT THIS PATIENT IS ON AN INSULIN@DRIP. FORGOT TO CANCEL THESE TESTS. Performed By: #### L 500.2500 ####[facility] [address] [place], [address] CREAT,SERUM Normal 0.70-1.30 [facility] Comment on above: Order Comment: Call with results STAT Result Comment: @SUKI IE SAID THAT THIS PATIENT IS ON AN INSULIN@DRIP. FORGOT TO CANCEL THESE TESTS. Performed By: #### L 500.2500 ####[facility] [address] [place], [address] EST GFR Normal >60 [facility] Comment on above: Order Comment: Call MD with results STAT Result Comment: @SUKI IE SAID THAT THIS PATIENT IS ON AN INSULIN@DRIP. FORGOT TO CANCEL THESE TESTS. Performed By: #### L 500.2500 ####[facility] [address] [place], [address] EST GFR - AA Normal >60 [facility] Comment on above: Order Comment: Call MD with results STAT Result Comment: @SUKI IE SAID THAT THIS PATIENT IS ON AN INSULIN@DRIP. FORGOT TO CANCEL THESE TESTS. Performed By: #### L 500.2500 ####[facility] [address] [place], [address] GAP Normal 5-15 [facility] Comment on above: Order Comment: Call MD with results STAT Result Comment: @SUKI IE SAID THAT THIS PATIENT IS ON AN INSULIN@DRIP. FORGOT TO CANCEL THESE TESTS. Performed By: #### L 500.2500 ####[facility] [address] [place], [address] GLU Normal 74-106 [facility] Comment on above: Order Comment: Call MD with results STAT Result Comment: @SUKI IE SAID THAT THIS PATIENT IS ON AN INSULIN@DRIP. FORGOT TO CANCEL THESE TESTS. Performed By: #### L 500.2500 ####[facility] [address] [place], [address] Potassium Normal 3.5-5.1 [facility] Comment on above: Order Comment: Call MD with results STAT Result Comment: @SUKI IE SAID THAT THIS PATIENT IS ON AN INSULIN@DRIP. FORGOT TO CANCEL THESE TESTS. Performed By: #### L 500.2500 ####[facility] [address] [place], [address] Basic Metabolic Profile (BMP) Normal 136-145 [facility] Comment on above: Order Comment: Call MD with results STAT Result Comment: @SUKI IE SAID THAT THIS PATIENT IS ON AN INSULIN@DRIP. FORGOT TO CANCEL THESE TESTS. Performed By: #### L 500.2500 ####[facility] [address] [place], [address] BUN Normal 7-18 [facility] Comment on above: Order Comment: Call MD with results STAT Result Comment: @NOT DRAWN ON TIME Performed By: #### L 500.2500 ####[facility] [address] [place], [address] BUN/CRE Normal 10-20 [facility] Comment on above: Order Comment: Call MD with results STAT Result Comment: @NOT DRAWN ON TIME Performed By: #### L 500.2500 ####[facility] [address] [place], [address] CA,Total Normal 8.5-10.1 [facility] Comment on above: Order Comment: Call MD with results STAT Result Comment: @NOT DRAWN ON TIME Performed By: #### L 500.2500 ####[facility] [address] [place], [address] CL Normal 98-107 [facility] Comment on above: Order Comment: Call MD with results STAT Result Comment: @NOT DRAWN ON TIME Performed By: #### L 500.2500 ####[facility] [address] [place], [address] CO2 Normal 21.0-32.0 [facility] Comment on above: Order Comment: Call MD with results STAT Result Comment: @NOT DRAWN ON TIME Performed By: #### L 500.2500 ####[facility] [address] [place], [address] CREAT,SERUM Normal 0.70-1.30 [facility] Comment on above: Order Comment: Call MD with results STAT Result Comment: @NOT DRAWN ON TIME Performed By: #### L 500.2500 ####[facility] [address] [place], [address] EST GFR Normal >60 [facility] Comment on above: Order Comment: Call MD with results STAT Result Comment: @NOT DRAWN ON TIME Performed By: #### L 500.2500 ####[facility] [address] [place], [address] EST GFR - AA Normal >60 [facility] Comment on above: Order Comment: Call MD with results STAT Result Comment: @NOT DRAWN ON TIME Performed By: #### L 500.2500 ####[facility] [address] [place], [address] GAP Normal 5-15 [facility] Comment on above: Order Comment: Call MD with results STAT Result Comment: @NOT DRAWN ON TIME Performed By: #### L 500.2500 ####[facility] [address] [place], [address] GLU Normal 74-106 [facility] Comment on above: Order Comment: Call MD with results STAT Result Comment: @NOT DRAWN ON TIME Performed By: #### L 500.2500 ####[facility] [address] [place], [address] Potassium Normal 3.5-5.1 [facility] Comment on above: Order Comment: Call MD with results STAT Result Comment: @NOT DRAWN ON TIME Performed By: #### L 500.2500 ####[facility] [address] [place], [address] Basic Metabolic Profile (BMP) Normal 136-145 [facility] Comment on above: Order Comment: Call MD with results STAT Result Comment: @NOT DRAWN ON TIME Performed By: #### L 500.2500 ####[facility] [address] [place], [address] BUN Normal 7-18 [facility] Comment on above: Order Comment: Call MD with results STAT Result Comment: @NOT DRAWN ON TIME Performed By: #### L 500.2500 ####[facility] [address] [place], [address] BUN/CRE Normal 10-20 [facility] Comment on above: Order Comment: Call MD with results STAT Result Comment: @NOT DRAWN ON TIME Performed By: #### L 500.2500 ####[facility] [address] [place], [address] CA,Total Normal 8.5-10.1 [facility] Comment on above: Order Comment: Call MD with results STAT Result Comment: @NOT DRAWN ON TIME Performed By: #### L 500.2500 ####[facility] [address] [place], [address] CL Normal 98-107 [facility] Comment on above: Order Comment: Call MD with results STAT Result Comment: @NOT DRAWN ON TIME Performed By: #### L 500.2500 ####[facility] [address] [place], [address] CO2 Normal 21.0-32.0 [facility] Comment on above: Order Comment: Call MD with results STAT Result Comment: @NOT DRAWN ON TIME Performed By: #### L 500.2500 ####[facility] [address] [place], [address] CREAT,SERUM Normal 0.70-1.30 [facility] Comment on above: Order Comment: Call MD with results STAT Result Comment: @NOT DRAWN ON TIME Performed By: #### L 500.2500 ####[facility] [address] [place], [address] EST GFR Normal >60 [facility] Comment on above: Order Comment: Call MD with results STAT Result Comment: @NOT DRAWN ON TIME Performed By: #### L 500.2500 ####[facility] [address] [place], [address] EST GFR - AA Normal >60 [facility] Comment on above: Order Comment: Call MD with results STAT Result Comment: @NOT DRAWN ON TIME Performed By: #### L 500.2500 ####[facility] [address] [place], [address] GAP Normal 5-15 [facility] Comment on above: Order Comment: Call MD with results STAT Result Comment: @NOT DRAWN ON TIME Performed By: #### L 500.2500 ####[facility] [address] [place], [address] GLU Normal 74-106 [facility] Comment on above: Order Comment: Call MD with results STAT Result Comment: @NOT DRAWN ON TIME Performed By: #### L 500.2500 ####[facility] [address] [place], [address] Potassium Normal 3.5-5.1 [facility] Comment on above: Order Comment: Call MD with results STAT Result Comment: @NOT DRAWN ON TIME Performed By: #### L 500.2500 ####[facility] [address] [place], [address] Basic Metabolic Profile (BMP) Normal 136-145 [facility] Comment on above: Order Comment: Call MD with results STAT Result Comment: @NOT DRAWN ON TIME Performed By: #### L 500.2500 ####[facility] [address] [place], [address] BUN/CRE 13.9 RATIO Normal 10-20 [facility] Comment on above: Order Comment: Call MD with results STAT Performed By: #### L 500.2500 ####[facility] [address] [place], [address] CA,Total 9.1 mg/dL Normal 8.5-10.1 [facility] Comment on above: Order Comment: Call MD with results STAT Performed By: #### L 500.2500 ####[facility] [address] [place], [address] Chloride [Moles/Vol] 107 mmol/L Normal 98-107 [facility] Comment on above: Order Comment: Call MD with results STAT Performed By: #### L 500.2500 ####[facility] [address] [place], [address] CO2 [Moles/Vol] 19.0 mmol/L Low 21.0-32.0 [facility] Comment on above: Order Comment: Call MD with results STAT Performed By: #### L 500.2500 ####[facility] [address] [place], [address] Creatinine [Mass/Vol] 5.70 mg/dL High 0.70-1.30 [facility] Comment on above: Order Comment: Call MD with results STAT Result Comment: The validity of the calculated GFR GFRAA in patients over70 years has not been determined. Clinical correlation isessential. Performed By: #### L 500.2500 ####[facility] [address] [place], [address] ECRCL 20.12 ml/min Normal [facility] Comment on above: Order Comment: Call MD with results STAT Performed By: #### L 500.2500 ####[facility] [address] [place], [address] EST GFR - AA 14 mL/min Low >60 [facility] Comment on above: Order Comment: Call MD with results STAT Result Comment: Afri can Japanese GFR Calc Performed By: #### L 500.2500 ####[facility] [address] [place], [address] GAP 13 Normal 5-15 [facility] Comment on above: Order Comment: Call MD with results STAT Performed By: #### L 500.2500 ####[facility] [address] [place], [address] GFR/1.73 sq M.predicted among non-blacks MDRD (S/P/Bld) [Vol rate/Area] 12 mL/min/{1.73_m2} Low >[address] [facility] Comment on above: Order Comment: Call MD with results STAT Result Comment: Non- GFR Calc Performed By: #### L 500.2500 ####[facility] [address] [place], [address] Glucose [Mass/Vol] 117 mg/dL High 74-106 [facility] Comment on above: Order Comment: Call MD with results STAT Result Comment: Fast ing Glucose result from 100 to 125 mg/dLsuggests IMPAIRED HOMEOSTASIS per A.D.A. criteria. Performed By: #### L 500.2500 ####[facility] [address] [place], [address] Potassium [Moles/Vol] 3.8 mmol/L Normal 3.5-5.1 [facility] Comment on above: Order Comment: Call MD with results STAT Performed By: #### L 500.2500 ####[facility] [address] [place], [address] Sodium [Moles/Vol] 139 mmol/L Normal 136-145 [facility] Comment on above: Order Comment: Call MD with results STAT Performed By: #### L 500.2500 ####[facility] [address] [place], [address] Urea nitrogen [Mass/Vol] 79 mg/dL High 7-18 [facility] Comment on above: Order Comment: Call MD with results STAT Performed By: #### L 500.2500 ####[facility] [address] [place], [address] BUN/CRE 14.0 RATIO Normal 10-20 [facility] Comment on above: Order Comment: Call MD with results STAT Performed By: #### L 500.2500 ####[facility] [address] [place], [address] CA,Total 8.8 mg/dL Normal 8.5-10.1 [facility] Comment on above: Order Comment: Call MD with results STAT Performed By: #### L 500.2500 ####[facility] [address] [place], [address] Chloride [Moles/Vol] 107 mmol/L Normal 98-107 [facility] Comment on above: Order Comment: Call MD with results STAT Performed By: #### L 500.2500 ####[facility] [address] [place], [address] CO2 [Moles/Vol] 19.0 mmol/L Low 21.0-32.0 [facility] Comment on above: Order Comment: Call MD with results STAT Performed By: #### L 500.2500 ####[facility] [address] [place], [address] Creatinine [Mass/Vol] 5.72 mg/dL High 0.70-1.30 [facility] Comment on above: Order Comment: Call MD with results STAT Result Comment: The validity of the calculated GFR GFRAA in patients over70 years has not been determined. Clinical correlation isessential. Performed By: #### L 500.2500 ####[facility] [address] [place], [address] ECRCL 20.05 ml/min Normal [facility] Comment on above: Order Comment: Call MD with results STAT Performed By: #### L 500.2500 ####[facility] [address] [place], [address] EST GFR - AA 14 mL/min Low >60 [facility] Comment on above: Order Comment: Call MD with results STAT Result Comment: Afri can Japanese GFR Calc Performed By: #### L 500.2500 ####[facility] [address] [place], [address] GAP 11 Normal 5-15 [facility] Comment on above: Order Comment: Call MD with results STAT Performed By: #### L 500.2500 ####[facility] [address] [place], [address] GFR/1.73 sq M.predicted among non-blacks MDRD (S/P/Bld) [Vol rate/Area] 12 mL/min/{1.73_m2} Low >[address] [facility] Comment on above: Order Comment: Call MD with results STAT Result Comment: Non- GFR Calc Performed By: #### L 500.2500 ####[facility] [address] [place], [address] Glucose [Mass/Vol] 114 mg/dL High 74-106 [facility] Comment on above: Order Comment: Call MD with results STAT Result Comment: Fast ing Glucose result from 100 to 125 mg/dLsuggests IMPAIRED HOMEOSTASIS per A.D.A. criteria. Performed By: #### L 500.2500 ####[facility] [address] [place], [address] Potassium [Moles/Vol] 3.9 mmol/L Normal 3.5-5.1 [facility] Comment on above: Order Comment: Call MD with results STAT Performed By: #### L 500.2500 ####[facility] [address] [place], [address] Sodium [Moles/Vol] 137 mmol/L Normal 136-145 [facility] Comment on above: Order Comment: Call MD with results STAT Performed By: #### L 500.2500 ####[facility] [address] [place], [address] Urea nitrogen [Mass/Vol] 80 mg/dL High 7-18 [facility] Comment on above: Order Comment: Call MD with results STAT Performed By: #### L 500.2500 ####[facility] [address] [place], [address] BUN/CRE 13.4 RATIO Normal 10-20 [facility] Comment on above: Performed By: #### L 501.9520, L500.2500, L500.4100, L501.5200 ####[facility] [address] [place], [address] CA,Total 9.2 mg/dL Normal 8.5-10.1 [facility] Comment on above: Performed By: #### L 501.9520, L500.2500, L500.4100, L501.5200 ####[facility] [address] [place], [address] Chloride [Moles/Vol] 104 mmol/L Normal 98-107 [facility] Comment on above: Performed By: #### L 501.9520, L500.2500, L500.4100, L501.5200 ####[facility] [address] [place], [address] CO2 [Moles/Vol] 18.0 mmol/L Low 21.0-32.0 [facility] Comment on above: Performed By: #### L 501.9520, L500.2500, L500.4100, L501.5200 ####[facility] [address] [place], [address] Creatinine [Mass/Vol] 5.88 mg/dL High 0.70-1.30 [facility] Comment on above: Result Comment: The validity of the calculated GFR GFRAA in patients over70 years has not been determined. Clinical correlation isessential. Performed By: #### L 501.9520, L500.2500, L500.4100, L501.5200 ####[facility] [address] [place], [address] ECRCL 19.51 ml/min Normal [facility] Comment on above: Performed By: #### L 501.9520, L500.2500, L500.4100, L501.5200 ####[facility] [address] [place], [address] EST GFR - AA 14 mL/min Low >60 [facility] Comment on above: Result Comment: Afri can Japanese GFR Calc Performed By: #### L 501.9520, L500.2500, L500.4100, L501.5200 ####[facility] [address] [place], [address] GAP 12 Normal 5-15 [facility] Comment on above: Performed By: #### L 501.9520, L500.2500, L500.4100, L501.5200 ####[facility] [address] [place], [address] GFR/1.73 sq M.predicted among non-blacks MDRD (S/P/Bld) [Vol rate/Area] 11 mL/min/{1.73_m2} Low >[address] [facility] Comment on above: Result Comment: Non- GFR Calc Performed By: #### L 501.9520, L500.2500, L500.4100, L501.5200 ####[facility] [address] [place], [address] Glucose [Mass/Vol] 216 mg/dL High 74-106 [facility] Comment on above: Result Comment: Gluc ose result greater than or equal to 200 mg/dLsuggests DIABETES MELLITUS per A.D.A. criteria. Performed By: #### L 501.9520, L500.2500, L500.4100, L501.5200 ####[facility] [address] [place], [address] Potassium [Moles/Vol] 4.8 mmol/L Normal 3.5-5.1 [facility] Comment on above: Result Comment: Mode rate Hemolysis, Result may be falsely increased. Performed By: #### L 501.9520, L500.2500, L500.4100, L501.5200 ####[facility] [address] [place], [address] Sodium [Moles/Vol] 134 mmol/L Low 136-145 [facility] Comment on above: Performed By: #### L 501.9520, L500.2500, L500.4100, L501.5200 ####[facility] [address] [place], [address] Urea nitrogen [Mass/Vol] 79 mg/dL High 7-18 [facility] Comment on above: Performed By: #### L 501.9520, L500.2500, L500.4100, L501.5200 ####[facility] [address] [place], [address] BUN Normal 7-18 [facility] Comment on above: Order Comment: Call MD with results STAT Result Comment: This specimen has been REJECTED due to Laboratory criteria:Duplicate Order.01/23/24150 Lamarsofiya Rochaell Performed By: #### L 500.2500, L3300.0960, L501.9985, L505.5000 ####[facility] [address] [place], [address] BUN/CRE Normal 10-20 [facility] Comment on above: Order Comment: Call MD with results STAT Result Comment: This specimen has been REJECTED due to Laboratory criteria:Duplicate Order.01/23/24150 Lamar Colon Performed By: #### L 500.2500, L3300.0960, L501.9985, L505.5000 ####[facility] [address] [place], [address] CA,Total Normal 8.5-10.1 [facility] Comment on above: Order Comment: Call MD with results STAT Result Comment: This specimen has been REJECTED due to Laboratory criteria:Duplicate Order.01/23/24150 Lamar Colon Performed By: #### L 500.2500, L3300.0960, L501.9985, L505.5000 ####[facility] [address] [place], [address] CL Normal 98-107 [facility] Comment on above: Order Comment: Call MD with results STAT Result Comment: This specimen has been REJECTED due to Laboratory criteria:Duplicate Order.01/23/24150 Lamar Colon Performed By: #### L 500.2500, L3300.0960, L501.9985, L505.5000 ####[facility] [address] [place], [address] CO2 Normal 21.0-32.0 [facility] Comment on above: Order Comment: Call MD with results STAT Result Comment: This specimen has been REJECTED due to Laboratory criteria:Duplicate Order.01/23/24150 Lamar C Forest Performed By: #### L 500.2500, L3300.0960, L501.9985, L505.5000 ####[facility] [address] [place], [address] CREAT,SERUM Normal 0.70-1.30 [facility] Comment on above: Order Comment: Call MD with results STAT Result Comment: This specimen has been REJECTED due to Laboratory criteria:Duplicate Order.01/23/24150 Lamar C Darlene Performed By: #### L 500.2500, L3300.0960, L501.9985, L505.5000 ####[facility] [address] [place], [address] EST GFR Normal >60 [facility] Comment on above: Order Comment: Call MD with results STAT Result Comment: This specimen has been REJECTED due to Laboratory criteria:Duplicate Order.01/23/24150 Lamar C Forest Performed By: #### L 500.2500, L3300.0960, L501.9985, L505.5000 ####[facility] [address] [place], [address] EST GFR - AA Normal >60 [facility] Comment on above: Order Comment: Call MD with results STAT Result Comment: This specimen has been REJECTED due to Laboratory criteria:Duplicate Order.01/23/24150 Lamar C Forest Performed By: #### L 500.2500, L3300.0960, L501.9985, L505.5000 ####[facility] [address] [place], [address] GAP Normal 5-15 [facility] Comment on above: Order Comment: Call MD with results STAT Result Comment: This specimen has been REJECTED due to Laboratory criteria:Duplicate Order.01/23/24150 Lamar C Darlene Performed By: #### L 500.2500, L3300.0960, L501.9985, L505.5000 ####[facility] [address] [place], [address] GLU Normal 74-106 [facility] Comment on above: Order Comment: Call MD with results STAT Result Comment: This specimen has been REJECTED due to Laboratory criteria:Duplicate Order.01/23/24150 Lamarsofiya Colon Performed By: #### L 500.2500, L3300.0960, L501.9985, L505.5000 ####[facility] [address] [place], [address] Potassium Normal 3.5-5.1 [facility] Comment on above: Order Comment: Call MD with results STAT Result Comment: This specimen has been REJECTED due to Laboratory criteria:Duplicate Order.01/23/24150 Lamar Colon Performed By: #### L 500.2500, L3300.0960, L501.9985, L505.5000 ####[facility] [address] [place], [address] Basic Metabolic Profile (BMP) Normal 136-145 [facility] Comment on above: Order Comment: Call MD with results STAT Result Comment: This specimen has been REJECTED due to Laboratory criteria:Duplicate Order.01/23/24150 Lamar Colon Performed By: #### L 500.2500, L3300.0960, L501.9985, L505.5000 ####[facility] [address] [place], [address] Bedside Glucoseon 01-23-2024 FINGERSTICK GLU 171 mg/dL High 74-106 [facility] Comment on above: Result Comment: EDUARDO JACOBO OF PATIENT CARE PER NURSING PROTOCOL Performed By: #### L 501.080 ####[facility] [address] [place], [address] FINGERSTICK GLU 82 mg/dL Normal 74-106 [facility] Comment on above: Result Comment: Dr Anna Marie martinez FollowedMANAGEMENT OF PATIENT CARE PER NURSING PROTOCOL Performed By: #### L 501.080 ####[facility] [address] [place], [address] FINGERSTICK GLU 100 mg/dL Normal 74-106 [facility] Comment on above: Result Comment: Dr Anna Marie martinez FollowedMANAGEMENT OF PATIENT CARE PER NURSING PROTOCOL Performed By: #### L 501.080 ####[facility] [address] [place], [address] FINGERSTICK GLU 84 mg/dL Normal 74-106 [facility] Comment on above: Result Comment: EDUARDO GEMENT OF PATIENT CARE PER NURSING PROTOCOL Performed By: #### L 501.080 ####[facility] [address] [place], [address] FINGERSTICK GLU 105 mg/dL Normal 74-106 [facility] Comment on above: Result Comment: EDUARDO GEMENT OF PATIENT CARE PER NURSING PROTOCOL Performed By: #### L 501.080 ####[facility] [address] [place], [address] FINGERSTICK GLU 97 mg/dL Normal 74-106 [facility] Comment on above: Result Comment: EDUARDO GEMENT OF PATIENT CARE PER NURSING PROTOCOL Performed By: #### L 501.080 ####[facility] [address] [place], [address] FINGERSTICK GLU 129 mg/dL High 74-106 [facility] Comment on above: Result Comment: EDUARDO GEMENT OF PATIENT CARE PER NURSING PROTOCOL Performed By: #### L 501.080 ####[facility] [address] [place], [address] FINGERSTICK GLU 158 mg/dL High 74-106 [facility] Comment on above: Result Comment: EDUARDO GEMENT OF PATIENT CARE PER NURSING PROTOCOL Performed By: #### L 501.080 ####[facility] [address] [place], [address] FINGERSTICK GLU 223 mg/dL High 74-106 [facility] Comment on above: Result Comment: EDUARDO GEMENT OF PATIENT CARE PER NURSING PROTOCOL Performed By: #### L 501.080 ####[facility] [address] [place], [address] FINGERSTICK GLU 240 mg/dL High 74-106 [facility] Comment on above: Result Comment: EDUARDO GEMENT OF PATIENT CARE PER NURSING PROTOCOL Performed By: #### L 501.080 ####[facility] [address] [place], [address] FINGERSTICK GLU 340 mg/dL High 74-106 [facility] Comment on above: Result Comment: EDUARDO GEMENT OF PATIENT CARE PER NURSING PROTOCOL Performed By: #### L 501.080 ####[facility] [address] [place], [address] Blood Gases by [facility] 01-22- 024 Base excess Calc (Bld) [Moles/Vol] -17 mmol/L Low -2 to +2 [facility] Comment on above: Performed By: #### L 9000.0800 ####[facility] [address] [place], [address] Blood Gas Type ART Normal [facility] Comment on above: Performed By: #### L 9000.0800 ####[facility] [address] [place], [address] CO2 [Moles/Vol] 12 mmol/L Normal [facility] Comment on above: Performed By: #### L 9000.0800 ####[facility] [address] [place], [address] HCO3 (Bld) [Moles/Vol] 10.8 mmol/L Low 22-26 [facility] Comment on above: Performed By: #### L 9000.0800 ####[facility] [address] [place], [address] Mode Not entered [facility] Comment on above: Performed By: #### L 9000.0800 ####[facility] [address] [place], [address] O2 Delivery Dev Not entered [facility] Comment on above: Performed By: #### L 9000.0800 ####[facility] [address] [place], [address] pCO2 28.3 mmHg Low 35-45 [facility] Comment on above: Performed By: #### L 9000.0800 ####[facility] [address] [place], [address] pH (Bld) 7.19 [pH] Invalid Interpretation Code 7.35-7.45 [facility] Comment on above: Performed By: #### L 9000.0800 ####[facility] [address] [place], [address] PO2 39 mmHG Invalid Interpretation Code 75-100 [facility] Comment on above: Performed By: #### L 9000.0800 ####[facility] [address] [place], [address] Read Back By Yes [facility] Comment on above: Performed By: #### L 9000.0800 ####[facility] [address] [place], [address] SITE Not entered [facility] Comment on above: Performed By: #### L 9000.0800 ####[facility] [address] [place], [address] SO2 63 Low 95-99 [facility] Comment on above: Performed By: #### L 9000.0800 ####[facility] [address] [place], [address] DUANE TEST Positive Normal [facility] Comment on above: Performed By: #### L 9000.0800 ####[facility] [address] [place], [address] Base excess Calc (Bld) [Moles/Vol] -6 mmol/L Low -2 to +2 [facility] Comment on above: Performed By: #### L 9000.0800 ####[facility] [address] [place], [address] Blood Gas Type ART Normal [facility] Comment on above: Performed By: #### L 9000.0800 ####[facility] [address] [place], [address] CO2 [Moles/Vol] 19 mmol/L Normal [facility] Comment on above: Performed By: #### L 9000.0800 ####[facility] [facility] [address] [place], [address] FI02 4.0 [facility] Comment on above: Performed By: #### L 9000.0800 ####[facility] [address] [place], [address] HCO3 (Bld) [Moles/Vol] 18.4 mmol/L Low 22-26 [facility] Comment on above: Performed By: #### L 9000.0800 ####[facility] [address] [place], [address] Mode Not entered Normal [facility] Comment on above: Performed By: #### L 9000.0800 ####[facility] [address] [place], [address] O2 Delivery Dev Cannula Normal [facility] Comment on above: Performed By: #### L 9000.0800 ####[facility] [address] [place], [address] pCO2 29.4 mmHg Low 35-45 [facility] Comment on above: Performed By: #### L 9000.0800 ####[facility] [address] [place], [address] pH (Bld) 7.40 [pH] Normal 7.35-7.45 [facility] Comment on above: Performed By: #### L 9000.0800 ####[facility] [address] [place], [address] PO2 63 mmHG Low 75-100 [facility] Comment on above: Performed By: #### L 9000.0800 ####[facility] [address] [place], [address] SITE R Radial Normal [facility] Comment on above: Performed By: #### L 9000.0800 ####[facility] [address] [place], [address] SO2 92 Low 95-99 [facility] Comment on above: Performed By: #### L 9000.0800 ####[facility] [address] [place], [address] CBC W/Diff, Automatedon 12-30 PATH REV Reviewed Normal [facility] Comment on above: Result Comment: Neut rophilic leukocytosis.Microcytic anemia.Clinical correlation necessary.Grzegorz Cheung M.D. 01/23/24 AMENDED REPORT 01/23/24 1550 PATH REV previously reported as: July mariaelena Performed By: #### L 501.6900, L100.0100 ####[facility] [address] [place], [address] CVS/PCIREPORTon 01-23-2024 CVS/PCIREPORT Normal [facility] CXR for Line Placementon CXR for Line Placement Normal [facility] Chest 1 View (Portable)on Chest 1 View (Portable) Normal [facility] Consultation - Nephrologyon 01-23-2024 Consultation - Nephrology Normal [facility] D-Dimer Quantitative (DVT/PE )on 01-23-2024 D-DIMER QUANT 0.45 FEU/ug/m Normal 0.27-0.49 [facility] Comment on above: Result Comment: NORM AL D-Dimer level (<0.50) indicates no DVT or PE. Performed By: #### L 300.8000 ####[facility] [address] [place], [address] Echo Completeon 01-23-2024 Echo Complete Normal [facility] Hemoglobin A1con 01-23-2024 HbA1c (Bld) [Mass fraction] 7.9 % High 3.8-5.6 [facility] Comment on above: Result Comment: Norm al < 5.7 % Prediabetic 5.7 - 6.4 % Diabetic >or= 6.5 % Please note range changes. Performed By: #### L 500.2500, L3300.0960, L501.9985, L505.5000 ####[facility] [address] [place], [address] Hepatitis B Surface Antigeno n 01-23-2024 HEP B Surf Ag Non-Reactive Normal Nonreactive [facility] Comment on above: Order Comment: Reaso n for Exam: need for outpatient dialysis Performed By: #### L 3890.6100 ####[facility] [address] [place], [address] L501.4020on 01-23-2024 TROPONIN-I HS 2250 pg/mL Invalid Interpretation Code 3.0-78.0 [facility] Comment on above: Order Comment: 'TROP ' Serial specimen #1, #2 or #3: 2 Result Comment: Crit ical Result(s) Called at: 02:22:19 01/23/2024 by:Lamar Singh. Results read back by same. Please Note: New Test Units and Gender Specific Reference Ranges. For more information see Policy Stat Procedure [place] High Sensitivity Troponin (TNIH) and attachments. Performed By: #### L 501.4020 ####[facility] [address] [place], [address] Lipid Profileon 01-23-2024 Cholesterol [Mass/Vol] 132 mg/dL Normal [address] [facility] Comment on above: Result Comment: <200 mg/dL Desirable 200-240 mg/dL Borderline >240 mg/dL High Risk Performed By: #### L 501.9520, L500.2500, L500.4100, L501.5200 ####[facility] [address] [place], [address] Cholesterol in HDL [Mass/Vol] 69 mg/dL Normal [facility] Comment on above: Result Comment: The drugs N-Acetylcysteine and Metamizole may falselydepress this assay. Reference Range HDL <40 mg/dL Low HDL Cholesterol HDL >or= 60 mg/dL High HDL Cholesterol Performed By: #### L 501.9520, L500.2500, L500.4100, L501.5200 ####[facility] [address] [place], [address] Cholesterol in LDL [Mass/Vol] 49 mg/dL Normal 0-130 [facility] Comment on above: Performed By: #### L 501.9520, L500.2500, L500.4100, L501.5200 ####[facility] [address] [place], [address] Cholesterol in VLDL [Mass/Vol] 14 mg/dL Normal 5-40 [facility] Comment on above: Performed By: #### L 501.9520, L500.2500, L500.4100, L501.5200 ####[facility] [address] [place], [address] Triglyceride [Mass/Vol] 72 mg/dL Normal [facility] Comment on above: Result Comment: The drugs N-Acetylcysteine and Metamizole may falselydepress this assay.Serum Triglycerides Reference Interval Normal <150 mg/dL Borderline high 150 - 199 mg/dL High 200 - 499 mg/dL Very High > or = 500 mg/dL Performed By: #### L 501.9520, L500.2500, L500.4100, L501.5200 ####[facility] [address] [place], [address] Magnesiumon 01-23-2024 Magnesium [Mass/Vol] 2.5 mg/dL Normal 1.6-2.6 [facility] Comment on above: Result Comment: Mode rate Hemolysis, Result may be falsely increased. Performed By: #### L 501.9520, L500.2500, L500.4100, L501.5200 ####[facility] [address] [place], [address] Partial Thromboplast Timeon 01-23-2024 aPTT Coag (Bld) [Time] 48.2 s High 24.1-36.[address] [facility] Comment on above: Performed By: #### L 300.4310 ####[facility] [address] [place], [address] aPTT Coag (Bld) [Time] 27.1 s Normal 24.1-36.[address] [facility] Comment on above: Performed By: #### L 300.4310, L300.3900 ####[facility] [address] [place], [address] Prothrombin Time w/INRon INR Coag (PPP) [Relative time] 1.1 {INR} Normal [facility] Comment on above: Performed By: #### L 300.4310, L300.3900 ####[facility] [address] [place], [address] PT Coag (PPP) [Time] 13.9 s Normal 11.7-14.9 [facility] Comment on above: Performed By: #### L 300.4310, L300.3900 ####[facility] [address] [place], [address] Thyroid Stim Hormone (TSH)on 01-23-2024 TSH 1.100 uIU/mL Normal 0.358-3.740 [facility] Comment on above: Performed By: #### L 501.9520, L500.2500, L500.4100, L501.5200 ####[facility] [address] [place], [address] Urine Drug Screen (VISTA)on 01-23-2024 AMPHETAMINES Negative Normal <1000 ng/mL [facility] Comment on above: Performed By: #### L 500.2500, L3300.0960, L501.9985, L505.5000 ####[facility] [address] [place], [address] BARBITIURATES Negative Normal < 200 ng/mL [facility] Comment on above: Performed By: #### L 500.2500, L3300.0960, L501.9985, L505.5000 ####[facility] [address] [place], [address] BENZODIAZIPINE Negative Normal < 200 ng/mL [facility] Comment on above: Performed By: #### L 500.2500, L3300.0960, L501.9985, L505.5000 ####[facility] [address] [place], [address] COCAINE Negative Normal < 300 ng/mL [facility] Comment on above: Performed By: #### L 500.2500, L3300.0960, L501.9985, L505.5000 ####[facility] [address] [place], [address] ECSTACY Negative Normal < 500 ng/mL [facility] Comment on above: Performed By: #### L 500.2500, L3300.0960, L501.9985, L505.5000 ####[facility] [address] [place], [address] METHADONE Negative Normal < 300 ng/mL [facility] Comment on above: Performed By: #### L 500.2500, L3300.0960, L501.9985, L505.5000 ####[facility] [address] [place], [address] OPIATES Negative Normal < 300 ng/mL [facility] Comment on above: Performed By: #### L 500.2500, L3300.0960, L501.9985, L505.5000 ####[facility] [address] [place], [address] PCP Negative Normal < 25 ng/mL [facility] Comment on above: Performed By: #### L 500.2500, L3300.0960, L501.9985, L505.5000 ####[facility] [address] [place], [address] THC Negative Normal < 50 ng/mL [facility] Comment on above: Performed By: #### L 500.2500, L3300.0960, L501.9985, L505.5000 ####[facility] [address] [place], [address] VISTA UDS PH 6 Normal [facility] Comment on above: Performed By: #### L 500.2500, L3300.0960, L501.9985, L505.5000 ####[facility] [address] [place], [address] 12 Lead EKGon 01-22-2024 12 Lead EKG Normal [facility] Acetone Serumon 01-22-2024 ACETONE SERUM SMALL Abnormal NEG [facility] Comment on above: Performed By: #### L 501.6900 ####[facility] [address] [place], [address] Bedside Glucoseon 01-22-2024 FINGERSTICK GLU 444 mg/dL High 74-106 [facility] Comment on above: Result Comment: EDUARDO JACOBO OF PATIENT CARE PER NURSING PROTOCOL Performed By: #### L 501.080 ####[facility] [address] [place], [address] FINGERSTICK GLU 488 mg/dL Invalid Interpretation Code 74-106 [facility] Comment on above: Result Comment: Dr Anna Marie martinez FollowedMANAGEMENT OF PATIENT CARE PER NURSING PROTOCOL Performed By: #### L 501.080 ####[facility] [address] [place], [address] CBC W/Diff, Automatedon 10-2 -2023 Absolute Lymph 1.01 X10 3/uL Normal 0.83-4.51 [facility] Comment on above: Performed By: #### L 501.4020, L100.0100, L500.4050 ####[facility] [address] [place], [address] Absolute Neut 10.1 X10 3/uL High 2.0-7.7 [facility] Comment on above: Performed By: #### L 501.4020, L100.0100, L500.4050 ####[facility] [address] [place], [address] Basophils/100 WBC (Bld) 0.6 % Normal 0-1 [facility] Comment on above: Performed By: #### L 501.4020, L100.0100, L500.4050 ####[facility] [address] [place], [address] Eosinophils/100 WBC (Bld) 0.1 % Normal 0-5 [facility] Comment on above: Performed By: #### L 501.4020, L100.0100, L500.4050 ####[facility] [address] [place], [address] Erythrocyte distribution width (RBC) [Ratio] 12.7 % Normal 11.6-14.6 [facility] Comment on above: Performed By: #### L 501.4020, L100.0100, L500.4050 ####[facility] [address] [place], [address] Hematocrit (Bld) [Volume fraction] 26.8 % Low 40-54 [facility] Comment on above: Performed By: #### L 501.4020, L100.0100, L500.4050 ####[facility] [address] [place], [address] Hemoglobin (Bld) [Mass/Vol] 8.6 g/dL Low 13.0-16. 5 [facility] Comment on above: Performed By: #### L 501.4020, L100.0100, L500.4050 ####[facility] [address] [place], [address] IG% 0.500 Normal 0.0-0.9 [facility] Comment on above: Result Comment: IG% - Immature Granulocytes (promyelocytes, myelocytes andmetamyelocytes) > 1% indicates that a LEFT SHIFT is Present. Performed By: #### L 501.4020, L100.0100, L500.4050 ####[facility] [address] [place], [address] Lymphocytes/100 WBC (Bld) 8.5 % Low 19-41 [facility] Comment on above: Performed By: #### L 501.4020, L100.0100, L500.4050 ####[facility] [address] [place], [address] MCH (RBC) [Entitic mass] 26.5 pg Low 27.0-32.0 [facility] Comment on above: Performed By: #### L 501.4020, L100.0100, L500.4050 ####[facility] [address] [place], [address] MCHC (RBC) [Mass/Vol] 32.1 g/dL Normal 32-36 [facility] Comment on above: Performed By: #### L 501.4020, L100.0100, L500.4050 ####[facility] [address] [place], [address] MCV (RBC) [Entitic vol] 82.5 fL Normal 80-94 [facility] Comment on above: Performed By: #### L 501.4020, L100.0100, L500.4050 ####[facility] [address] [place], [address] Monocytes/100 WBC (Bld) 5.5 % Normal 0-10 [facility] Comment on above: Performed By: #### L 501.4020, L100.0100, L500.4050 ####[facility] [address] [place], [address] Neutrophils/100 WBC (Bld) 84.8 % High 47-70 [facility] Comment on above: Performed By: #### L 501.4020, L100.0100, L500.4050 ####[facility] [address] [place], [address] Nucleated RBC (Bld) [#/Vol] 0 10*3/uL Normal 0-5 [facility] Comment on above: Performed By: #### L 501.4020, L100.0100, L500.4050 ####[facility] [address] [place], [address] Platelet mean volume (Bld) [Entitic vol] 9.6 fL Normal 6.2-12.0 [facility] Comment on above: Performed By: #### L 501.4020, L100.0100, L500.4050 ####[facility] [address] [place], [address] Platelets (Bld) [#/Vol] 340 10*3/uL Normal 150-450 [facility] Comment on above: Performed By: #### L 501.4020, L100.0100, L500.4050 ####[facility] [address] [place], [address] RBC (Bld) [#/Vol] 3.25 10*6/uL Low 4.6-6.2 [facility] Comment on above: Performed By: #### L 501.4020, L100.0100, L500.4050 ####[facility] [address] [place], [address] RDW SD 38.4 fl Normal 35.1-43.9 [facility] Comment on above: Performed By: #### L 501.4020, L100.0100, L500.4050 ####[facility] [address] [place], [address] WBC (Bld) [#/Vol] 11.9 10*3/uL High 4.4-11.0 [facility] Comment on above: Performed By: #### L 501.4020, L100.0100, L500.4050 ####[facility] [address] [place], [address] Chest PA and Lateralon 01-21 Chest PA and Lateral Normal [facility] Comprehensive Metabolic Prof ilon 01-22-2024 Albumin [Mass/Vol] 3.7 g/dL Normal 3.2-5.0 [facility] Comment on above: Order Comment: 'TROP ' Serial specimen #1, #2 or #3: 11 Performed By: #### L 501.4020, L100.0100, L500.4050 ####[facility] [address] [place], [address] Albumin/Globulin [Mass ratio] 1.0 {ratio} Normal 0.9-2.4 [facility] Comment on above: Order Comment: 'TROP ' Serial specimen #1, #2 or #3: 11 Performed By: #### L 501.4020, L100.0100, L500.4050 ####[facility] [address] [place], [address] ALK P 72 U/L Normal 45-117 [facility] Comment on above: Order Comment: 'TROP ' Serial specimen #1, #2 or #3: 11 Performed By: #### L 501.4020, L100.0100, L500.4050 ####[facility] [address] [place], [address] ALT [Catalytic activity/Vol] 31 U/L Normal 16-61 [facility] Comment on above: Order Comment: 'TROP ' Serial specimen #1, #2 or #3: 11 Performed By: #### L 501.4020, L100.0100, L500.4050 ####[facility] [address] [place], [address] AST [Catalytic activity/Vol] 20 U/L Normal 15-37 [facility] Comment on above: Order Comment: 'TROP ' Serial specimen #1, #2 or #3: 11 Performed By: #### L 501.4020, L100.0100, L500.4050 ####[facility] [address] [place], [address] Bilirubin [Mass/Vol] 0.40 mg/dL Normal 0.20-1.00 [facility] Comment on above: Order Comment: 'TROP ' Serial specimen #1, #2 or #3: 11 Result Comment: For patients on eltrombopag therapy, use of Dimension [place] TBIL is not recommended. Performed By: #### L 501.4020, L100.0100, L500.4050 ####[facility] [address] [place], [address] BUN/CRE 12.9 RATIO Normal 10-20 [facility] Comment on above: Order Comment: 'TROP ' Serial specimen #1, #2 or #3: 11 Performed By: #### L 501.4020, L100.0100, L500.4050 ####[facility] [address] [place], [address] CA,Total 9.2 mg/dL Normal 8.5-10.1 [facility] Comment on above: Order Comment: 'TROP ' Serial specimen #1, #2 or #3: 11 Performed By: #### L 501.4020, L100.0100, L500.4050 ####[facility] [address] [place], [address] Chloride [Moles/Vol] 97 mmol/L Low 98-107 [facility] Comment on above: Order Comment: 'TROP ' Serial specimen #1, #2 or #3: 11 Performed By: #### L 501.4020, L100.0100, L500.4050 ####[facility] [address] [place], [address] CO2 [Moles/Vol] 15.0 mmol/L Low 21.0-32.0 [facility] Comment on above: Order Comment: 'TROP ' Serial specimen #1, #2 or #3: 11 Performed By: #### L 501.4020, L100.0100, L500.4050 ####[facility] [address] [place], [address] Creatinine [Mass/Vol] 6.20 mg/dL High 0.70-1.30 [facility] Comment on above: Order Comment: 'TROP ' Serial specimen #1, #2 or #3: 11 Result Comment: The validity of the calculated GFR GFRAA in patients over70 years has not been determined. Clinical correlation isessential. Performed By: #### L 501.4020, L100.0100, L500.4050 ####[facility] [address] [place], [address] ECRCL 18.52 ml/min Normal [facility] Comment on above: Order Comment: 'TROP ' Serial specimen #1, #2 or #3: 11 Performed By: #### L 501.4020, L100.0100, L500.4050 ####[facility] [address] [place], [address] EST GFR - AA 13 mL/min Low >60 [facility] Comment on above: Order Comment: 'TROP ' Serial specimen #1, #2 or #3: 11 Result Comment: Afri can Japanese GFR Calc Performed By: #### L 501.4020, L100.0100, L500.4050 ####[facility] [address] [place], [address] GAP 18 High 5-15 [facility] Comment on above: Order Comment: 'TROP ' Serial specimen #1, #2 or #3: 11 Performed By: #### L 501.4020, L100.0100, L500.4050 ####[facility] [address] [place], [address] GFR/1.73 sq M.predicted among non-blacks MDRD (S/P/Bld) [Vol rate/Area] 11 mL/min/{1.73_m2} Low >[address] [facility] Comment on above: Order Comment: 'TROP ' Serial specimen #1, #2 or #3: 11 Result Comment: Non- GFR Calc Performed By: #### L 501.4020, L100.0100, L500.4050 ####[facility] [address] [place], [address] Globulin (S) [Mass/Vol] 3.8 g/dL Normal 2.2-4.2 [facility] Comment on above: Order Comment: 'TROP ' Serial specimen #1, #2 or #3: 11 Performed By: #### L 501.4020, L100.0100, L500.4050 ####[facility] [address] [place], [address] Glucose [Mass/Vol] 491 mg/dL Invalid Interpretation Code 74-106 [facility] Comment on above: Order Comment: 'TROP ' Serial specimen #1, #2 or #3: 11 Result Comment: Crit ical Result(s) Called at: 23:15:15 01/22/2024 by: LAURENCE. Results read back by Ken MtzGlucose result greater than or equal to 200 mg/dLsuggests DIABETES MELLITUS per A.D.A. criteria. Performed By: #### L 501.4020, L100.0100, L500.4050 ####[facility] [address] [place], [address] Potassium [Moles/Vol] 4.4 mmol/L Normal 3.5-5.1 [facility] Comment on above: Order Comment: 'TROP ' Serial specimen #1, #2 or #3: 11 Performed By: #### L 501.4020, L100.0100, L500.4050 ####[facility] [address] [place], [address] Sodium [Moles/Vol] 130 mmol/L Low 136-145 [facility] Comment on above: Order Comment: 'TROP ' Serial specimen #1, #2 or #3: 11 Performed By: #### L 501.4020, L100.0100, L500.4050 ####[facility] [address] [place], [address] T PROT 7.5 g/dL Normal 6.4-8.2 [facility] Comment on above: Order Comment: 'TROP ' Serial specimen #1, #2 or #3: 11 Performed By: #### L 501.4020, L100.0100, L500.4050 ####[facility] [address] [place], [address] Urea nitrogen [Mass/Vol] 80 mg/dL High 7-18 [facility] Comment on above: Order Comment: 'TROP ' Serial specimen #1, #2 or #3: 11 Performed By: #### L 501.4020, L100.0100, L500.4050 ####[facility] [address] [place], [address] Emergency Department Summary on 01-22-2024 Emergency Department Summary Normal [facility] H AND P Exam - Hospitaliston 01-22-2024 H&P Exam - Hospitalist Normal [facility] L501.4020on 01-22-2024 TROPONIN-I HS 588 pg/mL Invalid Interpretation Code 3.0-78.0 [facility] Comment on above: Order Comment: 'TROP ' Serial specimen #1, #2 or #3: 11 Result Comment: Crit ical Result(s) Called at: 23:14:57 01/22/2024 by: LAURENCE. Results read back by Ken Mtz Please Note: New Test Units and Gender Specific Reference Ranges. For more information see Policy Stat Procedure [place] High Sensitivity Troponin (TNIH) and attachments. Performed By: #### L 501.4020, L100.0100, L500.4050 ####[facility] [address] [place], [address] Urinalysis, Completeon 01-21 BACTERIA Normal None Seen [facility] Comment on above: Order Comment: CLEAN CATCH Result Comment: Canreji elled via OM: Ordered Performed By: #### L 400.0001 ####[facility] [address] [place], [address] BILIRUBIN URINE Normal Negative [facility] Comment on above: Order Comment: CLEAN CATCH Result Comment: Dano elled via OM: Ordered Performed By: #### L 400.0001 ####[facility] [address] [place], [address] Clarity (U) Normal Clear [facility] [facility] Comment on above: Order Comment: CLEAN CATCH Result Comment: Dano elled via OM: Ordered Performed By: #### L [id number] ####[facility] [address] [place], [address] Color (U) Normal Yellow [facility] Comment on above: Order Comment: CLEAN CATCH Result Comment: Canc elled via OM: MD Ordered Performed By: #### L [id number] ####[facility] [address] [place], [address] EPI,SQUAMOUS Normal 0-5 [facility] Comment on above: Order Comment: CLEAN CATCH Result Comment: Canc elled via OM: MD Ordered Performed By: #### L [id number] ####[facility] [address] [place], [address] GLUCOSE, UR Normal Normal [facility] Comment on above: Order Comment: CLEAN CATCH Result Comment: Canc elled via OM: MD Ordered Performed By: #### L [id number] ####[facility] [address] [place], [address] KETONE UR Normal Negative [facility] Comment on above: Order Comment: CLEAN CATCH Result Comment: Canc elled via OM: MD Ordered Performed By: #### L [id number] ####[facility] [address] [place], [address] LEUK ESTERASE Normal Negative [facility] Comment on above: Order Comment: CLEAN CATCH Result Comment: Canc elled via OM: MD Ordered Performed By: #### L [id number] ####[facility] [address] [place], [address] Mucus Ql (Urine sed) Normal [facility] Comment on above: Order Comment: CLEAN CATCH Result Comment: Canc elled via OM: MD Ordered Performed By: #### L [id number] ####[facility] [address] [place], [address] Nitrite Ql (U) Normal Negative [facility] Comment on above: Order Comment: CLEAN CATCH Result Comment: Canc elled via OM: MD Ordered Performed By: #### L [id number] ####[facility] [address] [place], [address] OCCULT BLOOD-UR Normal Negative [facility] Comment on above: Order Comment: CLEAN CATCH Result Comment: Canc elled via OM: MD Ordered Performed By: #### L [id number] ####[facility] [address] [place], [address] pH UR Normal 5.0 - 8.0 [facility] Comment on above: Order Comment: CLEAN CATCH Result Comment: Canc elled via OM: MD Ordered Performed By: #### L [id number] ####[facility] [address] [place], [address] PROT DIPSTX Normal Negative [facility] Comment on above: Order Comment: CLEAN CATCH Result Comment: Canc elled via OM: MD Ordered Performed By: #### L [id number] ####[facility] [address] [place], [address] RBC Normal 0-5 [facility] Comment on above: Order Comment: CLEAN CATCH Result Comment: Canc elled via OM: MD Ordered Performed By: #### L [id number] ####[facility] [address] [place], [address] SP.GR. DIPSTX Normal 1.002-1.030 [facility] Comment on above: Order Comment: CLEAN CATCH Result Comment: Canc elled via OM: MD Ordered Performed By: #### L [id number] ####[facility] [address] [place], [address] UR Preservative Normal [facility] Comment on above: Order Comment: CLEAN CATCH Result Comment: Canc elled via OM: MD Ordered Performed By: #### L [id number] ####[facility] [address] [place], [address] UROBILI Normal Normal [facility] Comment on above: Order Comment: CLEAN CATCH Result Comment: Canc elled via OM: MD Ordered Performed By: #### L [id number] ####[facility] [address] [place], [address] WBC Normal 0-5 [facility] Comment on above: Order Comment: CLEAN CATCH Result Comment: Canc elled via OM: MD Ordered Performed By: #### L [id number] ####[facility] [address] [place], [address] BACTERIA RARE Normal None Seen [facility] Comment on above: Order Comment: COLLE CTOR TO SPECIFY Performed By: #### L [id number] ####[facility] [address] [place], [address] EPI,SQUAMOUS 0 SEEN Normal 0-5 [facility] Comment on above: Order Comment: RACHNA CTOR TO SPECIFY Performed By: #### L [id number] ####[facility] [address] [place], [address] Mucus Ql (Urine sed) 0 SEEN Normal [facility] Comment on above: Order Comment: COLLE CTOR TO SPECIFY Performed By: #### L [id number] ####[facility] [address] [place], [address] RBC 0 SEEN Normal 0-5 [facility] Comment on above: Order Comment: COLLE CTOR TO SPECIFY Performed By: #### L [id number] ####[facility] [address] [place], [address] WBC 0 SEEN Normal 0-[address] [place] [address] Comment on above: Order Comment: COLLE CTOR TO SPECIFY Performed By: #### L [id number] ####[facility] [address] [place], [address] Venous Blood Gason 4 Blood Gas Type ARMANI Normal [facility] Comment on above: Performed By: #### L 9000.0810 ####[facility] [address] [place], [address] CO2 [Moles/Vol] 16 mmol/L Low 23-33 [facility] Comment on above: Performed By: #### L [id number] ####[facility] [address] [place], [address] HCO3 (Bld) [Moles/Vol] 15 mmol/L Low 22-[address] [facility] Comment on above: Performed By: #### L [id number] ####[facility] [address] [place], [address] O2 Delivery Dev Room Air Normal [facility] Comment on above: Performed By: #### L [id number] ####[facility] [address] [place], [address] SITE Not entered Normal [facility] Comment on above: Performed By: #### L [id number] ####[facility] [address] [place], [address] VBG BE -10 mmol/L Low -1.0-3.5 [facility] Comment on above: Performed By: #### L [id number] ####[facility] [address] [place], [address] VBG pCO2 28.2 mmHg Low 41-51 [facility] Comment on above: Performed By: #### L [id number] ####[facility] [address] [place], [address] VBG pH 7.35 Normal 7.32-7.42 [facility] Comment on above: Performed By: #### L [id number] ####[facility] [address] [place], [address] VBG PO2 36 mmHg Normal 25-40 [facility] Comment on above: Performed By: #### L [id number] ####[facility] [address] [place], [address] VBG SO2 68 Normal 50-70 [facility] Comment on above: Performed By: #### L [id number] ####[facility] [address] [place], [address] XR TIBIA/FIBULA 2 VIEWS LEFT on 12-21-2023 XR TIBIA/FIBULA 2 VIEWS LEFT ORIGINAL EXAMINATION: TWO XRAY VIEWS OF THE RIGHT TIBIA/FIBULA; TWO XRAY VIEWS OF THE LEFT TIBIA/FIBULA 12/20/2023 10:17 am COMPARISON: None. HISTORY: ORDERING SYSTEM PROVIDED HISTORY: Reason for Exam: Bilateral pain proximally in lower legs. FINDINGS: There is no fracture or dislocation of either the right or left tibia and fibula. No osseous lesion is present. Accessory ossicle is noted at the right anterior tibial tuberosity. Bilateral knee and ankle joints are unremarkable. No soft tissue abnormality is detected. IMPRESSION: No acute bone abnormality of the right or left tibia and fibula. Interpreted by: Paresh Nelson MD Preliminary Report By: Paresh Nelson MD Electronically signed By Paresh Nleson MD Dictated Date: 12/21/2023 1:59:23 AM Prelim Date: 12/21/2023 2:02:00 AM Sign Date: 12/21/2023 2:02:00 AM Ordering Provider: Y REFERRING [facility] MAIN XR TIBIA/FIBULA 2 VIEWS [facility] 12-21-2023 XR TIBIA/FIBULA 2 VIEWS RIGHT ORIGINAL EXAMINATION: TWO XRAY VIEWS OF THE RIGHT TIBIA/FIBULA; TWO XRAY VIEWS OF THE LEFT TIBIA/FIBULA 12/20/2023 10:17 am COMPARISON: None. HISTORY: ORDERING SYSTEM PROVIDED HISTORY: Reason for Exam: Bilateral pain proximally in lower legs. FINDINGS: There is no fracture or dislocation of either the right or left tibia and fibula. No osseous lesion is present. Accessory ossicle is noted at the right anterior tibial tuberosity. Bilateral knee and ankle joints are unremarkable. No soft tissue abnormality is detected. IMPRESSION: No acute bone abnormality of the right or left tibia and fibula. Interpreted by: Paresh Nelson MD Preliminary Report By: Paresh Nelson MD Electronically signed By Paresh Nelson MD Dictated Date: 12/21/2023 1:59:23 AM Prelim Date: 12/21/2023 2:02:00 AM Sign Date: 12/21/2023 2:02:00 AM Ordering Provider: NATALYAY REFERRING [facility] MAIN CT Abdomen and Pelvis WO con traston 08-28-2023 IMPRESSION: Vascular atherosclerotic calcifications as described. Imcu Specialist: NEW Transcribe Date/Time: Aug 28 2023 1:35P Dictated by : JAKOB QUINTERO DO This examination was interpreted and the report reviewed and electronically signed by: SUSHIL ETIENNE MD on Aug 28 2023 2:41PM [facility] DIVISION OF RADIOLOGY * * *Final Report* * * DATE OF EXAM: Aug 28 2023 11:40AM [facility] [place]/PEL WO IVCON / PROCEDURE REASON: multiple diagnoses * * * * Physician Interpretation * * * * EXAMINATION: CT ABDOMEN AND PELVIS WITHOUT IV CONTRAST CLINICAL HISTORY: Type 1 diabetes with end-stage renal disease and poorly controlled hypertension. Preoperative evaluation for kidney/pancreas transplant. TECHNIQUE: Non-IV contrast imaging of the abdomen and pelvis was performed using standard technique, scanning from just above the dome of the diaphragm to the symphysis pubis. Unenhanced imaging is limited for the evaluation of some intra-abdominal and pelvic pathology. MQ: CTAPWO_3 Contrast: IV: None CT Radiation dose: Integrated Dose-length product (DLP) for this visit = 523 mGy*cm. CT Dose Reduction Employed: Automated exposure control (AEC) COMPARISON: None. RESULT: Vasculature: Aortic and iliac arteries and vascular calcifications: No abdominal aortic or iliac artery aneurysm. Abdominal aorta: Moderate (greater than 50% circumference) atherosclerotic calcification Right iliac: Common iliac artery: Mildatherosclerotic calcification External iliac artery: Mild to moderate, thin but nearly circumferential atherosclerotic calcification Internal iliac artery: Moderate atherosclerotic calcifications along the posterior wall Left iliac: Common iliac artery: Mild atherosclerotic calcification External iliac artery: Mild atherosclerotic calcification Internal iliac artery: Mild to moderate atherosclerotic calcification Liver: Unremarkable. Biliary: The gallbladder is unremarkable. Spleen: No splenomegaly. Pancreas: Fatty atrophy. No ductal dilation. Adrenals: No mass. Kidneys: Bilateral cortical atrophy. No hydronephrosis. GI Tract: No bowel dilation. Normal appendix. Lymph Nodes: No lymphadenopathy. Mesentery/peritoneum : No ascites. Right anterior calcification (3:76). Retroperitoneum: No mass. Pelvis: No mass or ascites. Bones/Soft Tissues: Renal osteodystrophy. Lower thorax: Unremarkable. Localizer images: No additional findings. DIVISION OF RADIOLOGY Provider, [facility] [place] - 08/28/2023 * * *Final Report* * * DATE OF EXAM: Aug 28 2023 11:40AM [facility] [place] ABD/PEL WO IVCON / PROCEDURE REASON: multiple diagnoses * * * * Physician Interpretation * * * * EXAMINATION: CT ABDOMEN AND PELVIS WITHOUT IV CONTRAST CLINICAL HISTORY: Type 1 diabetes with end-stage renal disease and poorly controlled hypertension. Preoperative evaluation for kidney/pancreas transplant. TECHNIQUE: Non-IV contrast imaging of the abdomen and pelvis was performed using standard technique, scanning from just above the dome of the diaphragm to the symphysis pubis. Unenhanced imaging is limited for the evaluation of some intra-abdominal and pelvic pathology. MQ: CTAPWO_3 Contrast: IV: None CT Radiation dose: Integrated Dose-length product (DLP) for this visit = 523 mGy*cm. CT Dose Reduction Employed: Automated exposure control (AEC) COMPARISON: None. RESULT: Vasculature: Aortic and iliac arteries and vascular calcifications: No abdominal aortic or iliac artery aneurysm. Abdominal aorta: Moderate (greater than 50% circumference) atherosclerotic calcification Right iliac: Common iliac artery: Mildatherosclerotic calcification External iliac artery: Mild to moderate, thin but nearly circumferential atherosclerotic calcification Internal iliac artery: Moderate atherosclerotic calcifications along the posterior wall Left iliac: Common iliac artery: Mild atherosclerotic calcification External iliac artery: Mild atherosclerotic calcification Internal iliac artery: Mild to moderate atherosclerotic calcification Liver: Unremarkable. Biliary: The gallbladder is unremarkable. Spleen: No splenomegaly. Pancreas: Fatty atrophy. No ductal dilation. Adrenals: No mass. Kidneys: Bilateral cortical atrophy. No hydronephrosis. GI Tract: No bowel dilation. Normal appendix. Lymph Nodes: No lymphadenopathy. Mesentery/peritoneum : No ascites. Right anterior calcification (3:76). Retroperitoneum: No mass. Pelvis: No mass or ascites. Bones/Soft Tissues: Renal osteodystrophy. Lower thorax: Unremarkable. Localizer images: No additional findings. IMPRESSION IMPRESSION: Vascular atherosclerotic calcifications as described. Imcu Specialist: NEW Transcribe Date/Time: Aug 28 2023 1:35P Dictated by : JAKOB QUINTERO DO This examination was interpreted and the report reviewed and electronically signed by: SUSHIL EITENNE MD on Aug 28 2023 2:41PM EST [facility] Radiology Study observation (narrative) [facility] CT Abdomen and Pelvis WO con trastOrdered By: [facility] Provider on 08-28-2023 [facility] Thin prep Papanicolaou smear with manual screeningOrdered By: Caleb Vargas on 08-01-2023 Thin prep Papanicolaou smear with manual screening 93 mg/dL 74-106 [facility] Comment on above: MANAGEMENT OF PATIEN T CARE PER NURSING PROTOCOL Basophil percentageOrdered B y: Daisy Diaz on 07-23-2023 Basophil percentage 5.7 mg/dL 2.5-4.9 [facility] Chloride [Moles/Vol] 105 mmol/L 98-107 [facility] Glucose [Mass/Vol] 253 mg/dL 74-106 [facility] Comment on above: Glucose result great er than or equal to 200 mg/dLsuggests DIABETES MELLITUS per A.D.A. criteria. Potassium [Moles/Vol] 5.3 mmol/L 3.5-5.1 [facility] Sodium [Moles/Vol] 135 mmol/L 136-145 [facility] Laboratory - Chemistry and C hemistry - challengeOrdered By: Daisy Diaz on 07-23-2023 CO2 [Moles/Vol] 23.0 mmol/L 21.0-32.0 [facility] Urea nitrogen/Creatinine [Mass ratio] 14.7 mg/mg 10-20 [facility] No Panel InformationOrdered By: Daisy Diaz on 07-23-2023 Estimated GFR (MDRD) Amer 16 mL/min >60 [facility] Comment on above: GFR Calc Estimated GFR (MDRD) Non-Af Amer 13 mL/min >60 [facility] Comment on above: Non- GFR Calc Serum or plasma calcium jessie urement (mass/volume)Ordered By: Daisy Diaz on 07-23-2023 Calcium [Mass/Vol] 9.4 mg/dL 8.5-10.1 [facility] Serum or plasma creatinine m easurement (mass/volume)Ordered By: Daisy Diaz on 07-23-2023 Creatinine [Mass/Vol] 5.09 mg/dL 0.70-1.30 [facility] Comment on above: The validity of the calculated GFR & GFRAA in patients over 70 years has not been determined. Clinical correlation is essential. Serum or plasma urea nitroge n measurement (mass/volume)Ordered By: Daisy Diaz on 07-23-2023 Urea nitrogen [Mass/Vol] 75 mg/dL 7-18 [facility] Thin prep Papanicolaou smear with manual screeningOrdered By: Daisy Diaz on 07-23-2023 Thin prep Papanicolaou smear with manual screening 3.3 g/dL 3.2-5.0 [facility] Absolute lymphocyte countOrd ered By: Nelly Gross on 07-03-2023 Lymphocytes Auto (Unsp spec) [#/Vol] 2.01 10*3/uL 0.83-4.51 [facility] Automated lymphocyte count a s percentage of total leukocytesOrdered By: Nelly Gross on 07-03-2023 Lymphocytes/100 WBC Auto (Unsp spec) 27.4 % 19-41 [facility] Basophil percentageOrdered B y: Nelly Gross on 07-03-2023 Basophils/100 WBC (Bld) 1.0 % 0-1 [facility] Eosinophils/100 WBC (Bld) 5.0 % 0-5 [facility] Hemoglobin (Bld) [Mass/Vol] 9.7 g/dL 13.0-16. 5 [facility] Monocytes/100 WBC (Bld) 11.9 % 0-10 [facility] Neutrophils (Bld) [#/Vol] 4.0 10*3/uL 2.0-7.7 [facility] Neutrophils/100 WBC (Bld) 54.4 % 47-70 [facility] WBC (Bld) [#/Vol] 7.3 10*3/uL 4.4-11.0 [facility] Basophil percentageOrdered B y: Louis Koehler on 07-03-2023 Chloride [Moles/Vol] 111 mmol/L 98-107 [facility] Glucose [Mass/Vol] 110 mg/dL 74-106 [facility] Comment on above: Fasting Glucose resu lt from 100 to 125 mg/dL suggests IMPAIRED HOMEOSTASIS per A.D.A. criteria. Potassium [Moles/Vol] 3.9 mmol/L 3.5-5.1 [facility] Sodium [Moles/Vol] 140 mmol/L 136-145 [facility] Determination of erythrocyte mean corpuscular volume (MCV)Ordered By: Nelly Gross on 07-03-2023 MCV (RBC) [Entitic vol] 82.4 fL 80-94 [facility] Erythrocyte distribution wid th ratioOrdered By: Nelly Gross on 07-03-2023 Erythrocyte distribution width (RBC) [Ratio] 13.3 % 11.6-14.6 [facility] Erythrocyte distribution wid th standard deviationOrdered By: Nelly Gross on 07-03-2023 Erythrocyte distribution width (RBC) [Entitic vol] 40.3 fL 35.1-43.9 [facility] Hematocrit Auto (Bld) [Volum e fraction]Ordered By: Nelly Gross on 07-03-2023 Hematocrit (Bld) [Volume fraction] 29.4 % 40-54 [facility] Immature granulocytes/100 WB C Auto (Bld)Ordered By: Nelly Gross on 07-03-2023 Immature granulocytes/100 WBC (Bld) 0.300 % 0.0-0.9 [facility] Comment on above: IG% - Immature Granu locytes (promyelocytes, myelocytes and metamyelocytes) > 1% indicates that a LEFT SHIFT is Present. Laboratory - Chemistry and C hemistry - challengeOrdered By: Louis Koehler on 07-03-2023 CO2 [Moles/Vol] 23.0 mmol/L 21.0-32.0 [facility] Urea nitrogen/Creatinine [Mass ratio] 10.1 mg/mg 10-20 [facility] Laboratory - Hematology and Cell countsOrdered By: Nelly Gross on 07-03-2023 MCH (RBC) [Entitic mass] 27.2 pg 27.0-32.0 [facility] MCHC (RBC) [Mass/Vol] 33.0 g/dL 32-36 [facility] Nucleated RBC/100 WBC (Bld) [Ratio] 0 % 0-5 [facility] Platelet mean volume (Bld) [Entitic vol] 8.9 fL 6.2-12.0 [facility] Platelets (Bld) [#/Vol] 286 10*3/uL 150-450 [facility] No Panel InformationOrdered By: Louis Koehler on 07-03-2023 Estimated Creatinine Clearance Calc 24.30 ml/min [facility] Estimated GFR (MDRD) Amer 17 mL/min >60 [facility] Comment on above: GFR Calc Estimated GFR (MDRD) Non-Af Amer 14 mL/min >60 [facility] Comment on above: Non- GFR Calc RBC Auto (Bld) [#/Vol]Ordere d By: Nelly Gross on 07-03-2023 RBC (Bld) [#/Vol] 3.57 10*6/uL 4.6-6.2 [facility] Serum or plasma calcium jessie urement (mass/volume)Ordered By: Louis Koehler on 07-03-2023 Calcium [Mass/Vol] 9.0 mg/dL 8.5-10.1 [facility] Serum or plasma creatinine m easurement (mass/volume)Ordered By: Louis Koehler on 07-03-2023 Creatinine [Mass/Vol] 4.94 mg/dL 0.70-1.30 [facility] Comment on above: The validity of the calculated GFR & GFRAA in patients over 70 years has not been determined. Clinical correlation is essential. Serum or plasma urea nitroge n measurement (mass/volume)Ordered By: Louis Koehler on 07-03-2023 Urea nitrogen [Mass/Vol] 50 mg/dL 7-18 [facility] Thin prep Papanicolaou smear with manual screeningOrdered By: Louis Koehler on 07-03-2023 Thin prep Papanicolaou smear with manual screening 6 5-15 [facility] Absolute lymphocyte countOrd ered By: Louis Koehler on 07-02-2023 Lymphocytes Auto (Unsp spec) [#/Vol] 1.38 10*3/uL 0.83-4.51 [facility] Automated lymphocyte count a s percentage of total leukocytesOrdered By: Louis Koehler on 07-02-2023 Lymphocytes/100 WBC Auto (Unsp spec) 14.4 % 19-41 [facility] Basophil percentageOrdered B y: Louis Koehler on 07-02-2023 Basophils/100 WBC (Bld) 0.8 % 0-1 [facility] Chloride [Moles/Vol] 112 mmol/L 98-107 [facility] Cholesterol [Mass/Vol] 170 mg/dL <[address] [facility] Comment on above: <200 mg/dL Desirable 200-240 mg/dL Borderline >240 mg/dL High Risk Eosinophils/100 WBC (Bld) 2.9 % 0-5 [facility] Glucose [Mass/Vol] 151 mg/dL 74-106 [facility] Comment on above: Fasting Glucose resu lt greater than or equal to 126 mg/dL suggests DIABETES MELLITUS per A.D.A. criteria. Hemoglobin (Bld) [Mass/Vol] 9.0 g/dL 13.0-16. 5 [facility] Monocytes/100 WBC (Bld) 8.6 % 0-10 [facility] Neutrophils (Bld) [#/Vol] 7.0 10*3/uL 2.0-7.7 [facility] Neutrophils/100 WBC (Bld) 72.9 % 47-70 [facility] Potassium [Moles/Vol] 4.1 mmol/L 3.5-5.1 [facility] Sodium [Moles/Vol] 141 mmol/L 136-145 [facility] Triglyceride [Mass/Vol] 171 mg/dL <199 [facility] Comment on above: The drugs N-Acetylcy steine and Metamizole may falsely depress this assay.Serum Triglycerides Reference Interval Normal <150 mg/dL Borderline high 150 - 199 mg/dL High 200 - 499 mg/dL Very High > or = 500 mg/dL WBC (Bld) [#/Vol] 9.6 10*3/uL 4.4-11.0 [facility] Determination of erythrocyte mean corpuscular volume (MCV)Ordered By: Louis Koehler on 07-02-2023 MCV (RBC) [Entitic vol] 80.7 fL 80-94 [facility] Erythrocyte distribution wid th ratioOrdered By: Louis Koehler on 07-02-2023 Erythrocyte distribution width (RBC) [Ratio] 13.5 % 11.6-14.6 [facility] Erythrocyte distribution wid th standard deviationOrdered By: Louis Koehler on 07-02-2023 Erythrocyte distribution width (RBC) [Entitic vol] 39.6 fL 35.1-43.9 [facility] Hematocrit Auto (Bld) [Volum e fraction]Ordered By: Louis Koehler on 07-02-2023 Hematocrit (Bld) [Volume fraction] 27.2 % 40-54 [facility] Immature granulocytes/100 WB C Auto (Bld)Ordered By: Louis Koehler on 07-02-2023 Immature granulocytes/100 WBC (Bld) 0.400 % 0.0-0.9 [facility] Comment on above: IG% - Immature Granu locytes (promyelocytes, myelocytes and metamyelocytes) > 1% indicates that a LEFT SHIFT is Present. Laboratory - Chemistry and C hemistry - challengeOrdered By: Louis Koehler on 07-02-2023 Cholesterol in HDL [Mass/Vol] 58 mg/dL >40 [facility] Comment on above: The drugs N-Acetylcy steine and Metamizole may falsely depress this assay. Reference Range HDL <40 mg/dL Low HDL Cholesterol HDL >or= 60 mg/dL High HDL Cholesterol Cholesterol in LDL [Mass/Vol] 78 mg/dL 0-130 [facility] CO2 [Moles/Vol] 22.0 mmol/L 21.0-32.0 [facility] Urea nitrogen/Creatinine [Mass ratio] 11.1 mg/mg 10-20 [facility] Laboratory - Hematology and Cell countsOrdered By: Louis Koehler on 07-02-2023 MCH (RBC) [Entitic mass] 26.7 pg 27.0-32.0 [facility] MCHC (RBC) [Mass/Vol] 33.1 g/dL 32-36 [facility] Nucleated RBC/100 WBC (Bld) [Ratio] 0 % 0-5 [facility] Platelet mean volume (Bld) [Entitic vol] 9.0 fL 6.2-12.0 [facility] Platelets (Bld) [#/Vol] 293 10*3/uL 150-450 [facility] No Panel InformationOrdered By: Louis Koehler on 07-02-2023 Estimated Creatinine Clearance Calc 26.68 ml/min [facility] Estimated GFR (MDRD) Amer 19 mL/min >60 [facility] Comment on above: GFR Calc Estimated GFR (MDRD) Non-Af Amer 15 mL/min >60 [facility] Comment on above: Non- GFR Calc Troponin I High Sensitivity 49 pg/mL 3.0-78.0 [facility] Comment on above: Please Note: New Essence t Units and Gender Specific Reference Ranges. For more information see Policy Stat Procedure [place] High Sensitivity Troponin (TNIH) and attachments. VLDL Cholesterol 34 mg/dL 5-40 [facility] RBC Auto (Bld) [#/Vol]Ordere d By: Louis Koehler on 07-02-2023 RBC (Bld) [#/Vol] 3.37 10*6/uL 4.6-6.2 [facility] Serum or plasma calcium jessie urement (mass/volume)Ordered By: Louis Koehler on 07-02-2023 Calcium [Mass/Vol] 9.1 mg/dL 8.5-10.1 [facility] Serum or plasma creatinine m easurement (mass/volume)Ordered By: Louis Koehler on 07-02-2023 Creatinine [Mass/Vol] 4.50 mg/dL 0.70-1.30 [facility] Comment on above: The validity of the calculated GFR & GFRAA in patients over 70 years has not been determined. Clinical correlation is essential. Serum or plasma thyroid stim ulating hormone (TSH) measurement (units/volume)Ordered By: Louis Koehler on 07-02-2023 TSH Qn 3.33 uIU/mL 0.358-3.74 [facility] Serum or plasma urea nitroge n measurement (mass/volume)Ordered By: Louis Koehler on 07-02-2023 Urea nitrogen [Mass/Vol] 50 mg/dL 7-18 [facility] Thin prep Papanicolaou smear with manual screeningOrdered By: Louis Koehler on 07-02-2023 Thin prep Papanicolaou smear with manual screening 7 5-15 [facility] Absolute lymphocyte countOrd ered By: Laurie Elizalde on 07-01-2023 Lymphocytes Auto (Unsp spec) [#/Vol] 1.27 10*3/uL 0.83-4.51 [facility] Automated lymphocyte count a s percentage of total leukocytesOrdered By: Laurie Elizalde on 07-01-2023 Lymphocytes/100 WBC Auto (Unsp spec) 11.7 % 19-41 [facility] Basophil percentageOrdered B y: Louis Koehler on 07-01-2023 Basophil percentage 0 SEEN /hpf 0-5 [facility] Basophil percentageOrdered B y: Laurie Elizalde on 07-01-2023 Basophil percentage 4.2 mg/dL 2.5-4.9 [facility] Basophils/100 WBC (Bld) 0.6 % 0-1 [facility] Chloride [Moles/Vol] 108 mmol/L 98-107 [facility] Eosinophils/100 WBC (Bld) 1.3 % 0-5 [facility] Glucose [Mass/Vol] 285 mg/dL 74-106 [facility] Comment on above: Glucose result great er than or equal to 200 mg/dLsuggests DIABETES MELLITUS per A.D.A. criteria. Hemoglobin (Bld) [Mass/Vol] 9.9 g/dL 13.0-16. 5 [facility] Monocytes/100 WBC (Bld) 8.3 % 0-10 [facility] Neutrophils (Bld) [#/Vol] 8.5 10*3/uL 2.0-7.7 [facility] Neutrophils/100 WBC (Bld) 77.8 % 47-70 [facility] Potassium [Moles/Vol] 4.8 mmol/L 3.5-5.1 [facility] Sodium [Moles/Vol] 135 mmol/L 136-145 [facility] WBC (Bld) [#/Vol] 10.9 10*3/uL 4.4-11.0 [facility] Bilirubin Test strip Ql (U)O rdered By: Louis Koehler on 07-01-2023 Bilirubin Ql (U) Negative Negative [facility] Determination of erythrocyte mean corpuscular volume (MCV)Ordered By: Laurie Elizalde on 07-01-2023 MCV (RBC) [Entitic vol] 82.4 fL 80-94 [facility] Erythrocyte distribution wid th ratioOrdered By: Laurie Elizalde on 07-01-2023 Erythrocyte distribution width (RBC) [Ratio] 13.4 % 11.6-14.6 [facility] Erythrocyte distribution wid th standard deviationOrdered By: Laurie Elizalde on 07-01-2023 Erythrocyte distribution width (RBC) [Entitic vol] 40.4 fL 35.1-43.9 [facility] Hematocrit Auto (Bld) [Volum e fraction]Ordered By: Laurie Elizalde on 07-01-2023 Hematocrit (Bld) [Volume fraction] 30.0 % 40-54 [facility] Immature granulocytes/100 WB C Auto (Bld)Ordered By: Laurie Elizalde on 07-01-2023 Immature granulocytes/100 WBC (Bld) 0.300 % 0.0-0.9 [facility] Comment on above: IG% - Immature Granu locytes (promyelocytes, myelocytes and metamyelocytes) > 1% indicates that a LEFT SHIFT is Present. Ketones Test strip Ql (U)Ord ered By: Louis Koehler on 07-01-2023 Ketones Ql (U) Negative Negative [facility] Laboratory - Chemistry and C hemistry - challengeOrdered By: Laurie Elizalde on 07-01-2023 CO2 [Moles/Vol] 20.0 mmol/L 21.0-32.0 [facility] Magnesium [Mass/Vol] 2.1 mg/dL 1.6-2.6 [facility] Urea nitrogen/Creatinine [Mass ratio] 11.3 mg/mg 10-20 [facility] Laboratory - Hematology and Cell countsOrdered By: Laurie Elizalde on 07-01-2023 MCH (RBC) [Entitic mass] 27.2 pg 27.0-32.0 [facility] MCHC (RBC) [Mass/Vol] 33.0 g/dL 32-36 [facility] Nucleated RBC/100 WBC (Bld) [Ratio] 0 % 0-5 [facility] Platelet mean volume (Bld) [Entitic vol] 9.3 fL 6.2-12.0 [facility] Platelets (Bld) [#/Vol] 329 10*3/uL 150-450 [facility] Mucus LM Ql (Urine sed)Order ed By: Louis Koehler on 07-01-2023 Mucus Ql (Urine sed) 0 SEEN /hpf [facility] Nitrite Test strip Ql (U)Ord ered By: Louis Koehler on 07-01-2023 Nitrite Ql (U) Negative Negative [facility] No Panel InformationOrdered By: Louis Koehler on 07-01-2023 Urine RBC 0-5 SEEN /hpf 0-5 [facility] No Panel InformationOrdered By: Laurie Elizalde on 07-01-2023 Estimated Creatinine Clearance Calc 25.85 ml/min [facility] Estimated GFR (MDRD) Amer 18 mL/min >60 [facility] Comment on above: GFR Calc Estimated GFR (MDRD) Non-Af Amer 15 mL/min >60 [facility] Comment on above: Non- GFR Calc Troponin I High Sensitivity 44 pg/mL 3.0-78.0 [facility] Comment on above: Please Note: New Essence t Units and Gender Specific Reference Ranges. For more information see Policy Stat Procedure [place] High Sensitivity Troponin (TNIH) and attachments. Protein Test strip Ql (U)Ord ered By: Louis Koehler on 07-01-2023 Protein Ql (U) 100 mg/dl Negative [facility] RBC Auto (Bld) [#/Vol]Ordere d By: Laurie Elizalde on 07-01-2023 RBC (Bld) [#/Vol] 3.64 10*6/uL 4.6-6.2 [facility] Serum or plasma calcium jessie urement (mass/volume)Ordered By: Laurie Elizalde on 07-01-2023 Calcium [Mass/Vol] 9.2 mg/dL 8.5-10.1 [facility] Serum or plasma creatinine m easurement (mass/volume)Ordered By: Laurie Elizalde on 07-01-2023 Creatinine [Mass/Vol] 4.68 mg/dL 0.70-1.30 [facility] Comment on above: The validity of the calculated GFR & GFRAA in patients over 70 years has not been determined. Clinical correlation is essential. Serum or plasma urea nitroge n measurement (mass/volume)Ordered By: Laurie Elizalde on 07-01-2023 Urea nitrogen [Mass/Vol] 53 mg/dL 7-18 [facility] Squamous epithelial cells de tection in urine sediment by light microscopyOrdered By: Louis Koehler on 07-01-2023 Epithelial cells.squamous LM Ql (Urine sed) 0 SEEN /hpf 0-5 [facility] Thin prep Papanicolaou smear with manual screeningOrdered By: Laurie Elizalde on 07-01-2023 Thin prep Papanicolaou smear with manual screening 7 5-15 [facility] Urine blood detectionOrdered By: Louis Koehler on 07-01-2023 RBC Ql (U) 25 /ul Negative [facility] Urine clarityOrdered By: Cindy Koehler on 07-01-2023 Clarity (U) Clear Clear [facility] Urine color determinationOrd ered By: Louis Koehler on 07-01-2023 Color (U) Straw Yellow [facility] Urine glucose detectionOrder ed By: Louis Koehler on 07-01-2023 Glucose Ql (U) Normal mg/dl Normal [facility] Urine leukocyte esterase det ection by dipstickOrdered By: Louis Koehler on 07-01-2023 Leukocyte esterase Test strip Ql (U) Negative Negative [facility] Urine pHOrdered By: Louis Koehler on 07-01-2023 pH (U) 6.0 [pH] 5.0 - 8.0 [facility] Urine sediment bacteria coun t by microscopy (number/high power field)Ordered By: Louis Koehler on 07-01-2023 Bacteria LM.HPF (Urine sed) [#/Area] 0 /[HPF] None Seen [facility] Urine specific gravity measu rementOrdered By: Louis Koehler on 07-01-2023 Specific gravity (U) [Rel density] 1.010 1.002-1.030 [facility] Urine urobilinogen measureme ntOrdered By: Louis Koehler on 07-01-2023 Urobilinogen Ql (U) Normal mg/dl Normal [facility] Albumin Elph [Mass/Vol]Order ed By: Daisy Diaz on 03-29-2024 Albumin [Mass/Vol] 3.1 g/dL 2.9-4.4 [facility] Atypical P-ANCA titerOrdered By: Daisy Diaz on 06-27-2023 Neutrophil cytoplasmic Ab.perinuclear.atypical IF (S) [Titer] <1:20 titer Neg:<1:20 [facility] Comment on above: The atypical pANCA p attern has been observed in asignificant percentage of patients with ulcerative colitis,primary sclerosing cholangitis and autoimmune hepatitis.Performed at: [facility] [address] [id number] Director: Dhruv Lujan PhD, Phone: [phone] Basophil percentageOrdered B y: Daisy Diaz on 06-27-2023 Basophil percentage 0-5 SEEN /hpf 0-[address] [facility] Basophil percentage 4.5 mg/dL 2.5-4.9 [facility] Chloride [Moles/Vol] 115 mmol/L 98-107 [facility] Glucose [Mass/Vol] 62 mg/dL 74-106 [facility] Hemoglobin (Bld) [Mass/Vol] 10.2 g/dL 13.0-16. 5 [facility] Potassium [Moles/Vol] 4.7 mmol/L 3.5-5.1 [facility] Sodium [Moles/Vol] 141 mmol/L 136-145 [facility] WBC (Bld) [#/Vol] 8.9 10*3/uL 4.4-11.0 [facility] Bilirubin Test strip Ql (U)O rdered By: Daisy Diaz on 06-27-2023 Bilirubin Ql (U) Negative Negative [facility] Determination of erythrocyte mean corpuscular volume (MCV)Ordered By: Daisy Diaz on 06-27-2023 MCV (RBC) [Entitic vol] 82.1 fL 80-94 [facility] Erythrocyte distribution wid th ratioOrdered By: Daisy Diaz on 06-27-2023 Erythrocyte distribution width (RBC) [Ratio] 13.5 % 11.6-14.6 [facility] Erythrocyte distribution wid th standard deviationOrdered By: Daisy Diaz on 06-27-2023 Erythrocyte distribution width (RBC) [Entitic vol] 40.1 fL 35.1-43.9 [facility] Hematocrit Auto (Bld) [Volum e fraction]Ordered By: Daisy Diaz on 06-27-2023 Hematocrit (Bld) [Volume fraction] 31.1 % 40-54 [facility] Ketones Test strip Ql (U)Ord ered By: Daisy Diaz on 06-27-2023 Ketones Ql (U) Negative Negative [facility] Laboratory - Chemistry and C hemistry - challengeOrdered By: Daisy Diaz on 06-27-2023 CO2 [Moles/Vol] 21.0 mmol/L 21.0-32.0 [facility] Urea nitrogen/Creatinine [Mass ratio] 8.5 mg/mg 10-20 [facility] Laboratory - Hematology and Cell countsOrdered By: Daisy Diaz on 06-27-2023 MCH (RBC) [Entitic mass] 26.9 pg 27.0-32.0 [facility] MCHC (RBC) [Mass/Vol] 32.8 g/dL 32-36 [facility] Platelet mean volume (Bld) [Entitic vol] 9.0 fL 6.2-12.0 [facility] Platelets (Bld) [#/Vol] 325 10*3/uL 150-450 [facility] Mucus LM Ql (Urine sed)Order ed By: Daisy Diaz on 06-27-2023 Mucus Ql (Urine sed) 0 SEEN /hpf [facility] Nitrite Test strip Ql (U)Ord ered By: Daisy Diaz on 06-27-2023 Nitrite Ql (U) Negative Negative [facility] No Panel InformationOrdered By: Daisy Diaz on 06-27-2023 Addendum Document Comment . [facility] Comment on above: The SPE pattern demo nstrates elevation of regionscontaining acute phase proteins suggesting anacute/subacute inflammatory response. Some conditions inwhich this pattern has been observed include: bacterial,viral or parasitic infection; mechanical, physical orchemical trauma; and cardiac failure. The gamma globulinregion is unremarkable and evidence of monoclonal proteinis not apparent. Vdyja-0-Rwpvuotmb 0.3 g/dL 0.0-0.4 [facility] Vfdps-3-Khahuxrmu 1.2 g/dL 0.4-1.0 [facility] Estimated GFR (MDRD) Amer 19 mL/min >60 [facility] Comment on above: GFR Calc Estimated GFR (MDRD) Non-Af Amer 16 mL/min >60 [facility] Comment on above: Non- GFR Calc Gamma Globulins 0.6 g/dL 0.4-1.8 [facility] Parathyroid Hormone (Intact) 232.1 pg/mL 18.4-80.1 [facility] Urine RBC 0 SEEN /hpf 0-5 [facility] Vitamin D 25-Hydroxy 24.2 ng/mL [facility] Comment on above: Vitamin D 25(OH) Sta tus Range Deficiency <20 ng/mL (50nmol/L) Insufficiency 20 - 30 ng/mL (50 - 75 nmol/L) Sufficiency 30 - 100 ng/mL (75 - 250 nmol/L) Toxicity >100 ng/mL (>250 nmol/L) Protein Fractions Elph [Inte rp]Ordered By: Daisy Diaz on 06-27-2023 Protein Fractions [Interp] Comment . [facility] Comment on above: Protein electrophore sis scan will follow via computer,mail, or laborer electroplating delivery. Protein Test strip Ql (U)Ord ered By: Daisy Diaz on 06-27-2023 Protein Ql (U) 500 mg/dl Negative [facility] RBC Auto (Bld) [#/Vol]Ordere d By: Daisy Diaz on 06-27-2023 RBC (Bld) [#/Vol] 3.79 10*6/uL 4.6-6.2 [facility] Serum DNA double strand anti body assay (units/volume)Ordered By: Daisy Diaz on 06-27-2023 DNA double strand Ab Qn (S) 1 [IU]/mL 0-9 [facility] Comment on above: Negative <5 Equivoca l 5 - 9 Positive >9Performed at: - [facility] [id number] Director: Dhruv Lujan PhD, Phone: [phone] Serum albumin to globulin ra brayan by protein electrophoresisOrdered By: Daisy Diaz on 06-27-2023 Albumin/Globulin Elph [Mass ratio] 1.1 0.7-1.7 [facility] Serum classic neutrophil cyt oplasmic antibody assay (units/volume)Ordered By: Daisy Diaz on 06-27-2023 Neutrophil cytoplasmic Ab.classic Qn (S) <1:20 titer Neg:<1:20 [facility] Serum globulin measurement ( mass/volume)Ordered By: Daisy Diaz on 06-27-2023 Globulin (S) [Mass/Vol] 2.9 g/dL 2.2-3.9 [facility] Serum or plasma beta globuli n measurement by electrophoresis (mass/volume)Ordered By: Daisy Diaz on 06-27-2023 Beta globulin Elph [Mass/Vol] 0.8 g/dL 0.7-1.3 [facility] Serum or plasma calcium jessie urement (mass/volume)Ordered By: Daisy Diaz on 06-27-2023 Calcium [Mass/Vol] 9.4 mg/dL 8.5-10.1 [facility] Serum or plasma creatinine m easurement (mass/volume)Ordered By: Daisy Diaz on 06-27-2023 Creatinine [Mass/Vol] 4.35 mg/dL 0.70-1.30 [facility] Comment on above: The validity of the calculated GFR & GFRAA in patients over 70 years has not been determined. Clinical correlation is essential. Serum or plasma protein mono clonal measurement by electrophoresis (mass/volume)Ordered By: Daisy Diaz on 06-27-2023 Protein.monoclonal Elph [Mass/Vol] Not Observed g/dL Not Observed [facility] Serum or plasma urea nitroge n measurement (mass/volume)Ordered By: Daisy Diaz on 06-27-2023 Urea nitrogen [Mass/Vol] 37 mg/dL 7-18 [facility] Serum perinuclear neutrophil cytoplasmic antibody titer by immunofluorescenceOrdered By: Daisy Diaz on 06-27-2023 Neutrophil cytoplasmic Ab.perinuclear IF (S) [Titer] <1:20 titer Neg:<1:20 [facility] Comment on above: The presence of posi tive fluorescence exhibiting P-ANCA orC-ANCA patterns alone is not specific for the diagnosis ofWegener's Granulomatosis (WG) or microscopic polyangiitis.Decisions about treatment should not be based solely onANCA IFA results. The International ANCA Group Consensusrecommends follow up testing of positive sera with both KS-3 and MPO-ANCA enzyme immunoassays. As many as 5% serumsamples are positive only by EIA. Ref. AM J Clin Bhtbuy4186;111:507-513. Squamous epithelial cells de tection in urine sediment by light microscopyOrdered By: Daisy Diaz on 06-27-2023 Epithelial cells.squamous LM Ql (Urine sed) 0-5 SEEN /hpf 0-5 [facility] Thin prep Papanicolaou smear with manual screeningOrdered By: Daisy Diaz on 06-27-2023 Thin prep Papanicolaou smear with manual screening 3.0 g/dL 3.2-5.0 [facility] Total protein bloodOrdered B y: Daisy Diaz on 06-27-2023 Protein [Mass/Vol] 6.0 g/dL 6.0-8.5 [facility] Urine blood detectionOrdered By: Daisy Diaz on 06-27-2023 RBC Ql (U) 25 /ul Negative [facility] Urine clarityOrdered By: Mann Diaz on 06-27-2023 Clarity (U) Clear Clear [facility] Urine color determinationOrd ered By: Daisy Diaz on 06-27-2023 Color (U) Straw Yellow [facility] Urine glucose detectionOrder ed By: Daisy Diaz on 06-27-2023 Glucose Ql (U) 100 mg/dl Normal [facility] Urine leukocyte esterase det ection by dipstickOrdered By: Daisy Diaz on 06-27-2023 Leukocyte esterase Test strip Ql (U) Negative Negative [facility] Urine pHOrdered By: Mamta Diaz on 06-27-2023 pH (U) 6.0 [pH] 5.0 - 8.0 [facility] Urine sediment bacteria coun t by microscopy (number/high power field)Ordered By: Daisy Diaz on 06-27-2023 Bacteria LM.HPF (Urine sed) [#/Area] 0 /[HPF] None Seen [facility] Urine specific gravity measu rementOrdered By: Daisy Diaz on 06-27-2023 Specific gravity (U) [Rel density] 1.015 1.002-1.030 [facility] Urine urobilinogen measureme ntOrdered By: Daisy Diaz on 06-27-2023 Urobilinogen Ql (U) Normal mg/dl Normal [facility] Basophil percentageOrdered B y: Kendra Pierce on 05-16-2023 Bilirubin [Mass/Vol] 0.60 mg/dL 0.20-1.00 [facility] Comment on above: For patients on eltr ombopag therapy, use of Dimension [place] TBIL is not recommended. Chloride [Moles/Vol] 110 mmol/L 98-107 [facility] Glucose [Mass/Vol] 90 mg/dL 74-106 [facility] Potassium [Moles/Vol] 4.7 mmol/L 3.5-5.1 [facility] Protein [Mass/Vol] 6.5 g/dL 6.4-8.2 [facility] Sodium [Moles/Vol] 139 mmol/L 136-145 [facility] Laboratory - Chemistry and C hemistry - challengeOrdered By: Kendra Pierce on 05-16-2023 Albumin/Globulin [Mass ratio] 0.7 {ratio} 0.9-2.4 [facility] ALP [Catalytic activity/Vol] 83 U/L 45-117 [facility] ALT [Catalytic activity/Vol] 27 U/L 16-61 [facility] CO2 [Moles/Vol] 26.0 mmol/L 21.0-32.0 [facility] Globulin (S) [Mass/Vol] 3.8 g/dL 2.2-4.2 [facility] Urea nitrogen/Creatinine [Mass ratio] 10.4 mg/mg 10-20 [facility] No Panel InformationOrdered By: Kendra Pierce on 05-16-2023 Estimated GFR (MDRD) Amer 21 mL/min >60 [facility] Comment on above: GFR Calc Estimated GFR (MDRD) Non-Af Amer 17 mL/min >60 [facility] Comment on above: Non- GFR Calc Serum or plasma calcium jessie urement (mass/volume)Ordered By: Kendra Pierce on 05-16-2023 Calcium [Mass/Vol] 9.1 mg/dL 8.5-10.1 [facility] Serum or plasma creatinine m easurement (mass/volume)Ordered By: Kendra Pierce on 05-16-2023 Creatinine [Mass/Vol] 4.05 mg/dL 0.70-1.30 [facility] Comment on above: The validity of the calculated GFR & GFRAA in patients over 70 years has not been determined. Clinical correlation is essential. Serum or plasma urea nitroge n measurement (mass/volume)Ordered By: Kendra Pierce on 05-16-2023 Urea nitrogen [Mass/Vol] 42 mg/dL 7-18 [facility] Thin prep Papanicolaou smear with manual screeningOrdered By: Kendra Pierce on 05-16-2023 Thin prep Papanicolaou smear with manual screening 2.7 g/dL 3.2-5.0 [facility] Thin prep Papanicolaou smear with manual screening 22 U/L 15-37 [facility] Thin prep Papanicolaou smear with manual screening 3 5-15 [facility] Whole blood hemoglobin A1c/t otal hemoglobin ratio (mass fraction)Ordered By: Kendra Pierce on 05-16-2023 HbA1c (Bld) [Mass fraction] 7.9 % 3.8-5.6 [facility] Comment on above: Normal < 5.7 % Predi abetic 5.7 - 6.4 % Diabetic >or= 6.5 % Please note range changes. Laboratory - Hematology and Cell countson 05-14-2023 HbA1c (Bld) [Mass fraction] 8.5 % 4.2-6.3 [facility] CBC W Auto Differential pane l (Bld)on 04-26-2022 Basophils (Bld) [#/Vol] 0.06 10*3/uL <0.11 k/uL [facility] Basophils/100 WBC (Bld) 0.8 % [facility] Differential cell count method Nom (Bld) Auto [facility] Eosinophils (Bld) [#/Vol] 0.12 10*3/uL <0.46 k/ uL [facility] Eosinophils/100 WBC (Bld) 1.7 % [facility] Erythrocyte distribution width (RBC) [Ratio] 13.2 % 11.5 - 15.0 % [facility] Hematocrit (Bld) [Volume fraction] 35.7 % Low 39.0 - 51.0 % [facility] Hemoglobin (Bld) [Mass/Vol] 11.9 g/dL Low 13.0 - 17.0 g/dL [facility] Immature granulocytes (Bld) [#/Vol] 0.03 10*3/uL <0.10 k/uL [facility] Immature granulocytes/100 WBC (Bld) 0.4 % [facility] Lymphocytes (Bld) [#/Vol] 1.77 10*3/uL 1. 00 - 4.00 k/uL [facility] Lymphocytes/100 WBC (Bld) 24.5 % [facility] MCH (RBC) [Entitic mass] 27.9 pg 26. 0 - 34.0 pg [facility] MCHC (RBC) [Mass/Vol] 33.3 g/dL 30.5 - 36.0 g/dL [facility] MCV (RBC) [Entitic vol] 83.6 fL 80.0 - 100.0 fL [facility] Monocytes (Bld) [#/Vol] 0.62 10*3/uL <0.87 k/uL [facility] Monocytes/100 WBC (Bld) 8.6 % [facility] Neutrophils (Bld) [#/Vol] 4.63 10*3/uL 1. 45 - 7.50 k/uL [facility] Neutrophils/100 WBC (Bld) 64.0 % [facility] Nucleated RBC (Bld) [#/Vol] <0.01 k/ uL [facility] Nucleated RBC/100 WBC (Bld) [Ratio] 0.0 /100 WBC [facility] Platelet mean volume (Bld) [Entitic vol] 9.4 fL 9.0 - 12.7 fL [facility] Platelets (Bld) [#/Vol] 316 10*3/uL 150 - 400 k/uL [facility] RBC (Bld) [#/Vol] 4.27 10*6/uL 4.20 - 6.0 0 m/uL [facility] WBC (Bld) [#/Vol] 7.23 10*3/uL 3.70 - 11. 00 k/uL [facility] HEMOGLOBIN A1C (POC)on 04-26 HbA1c (Bld) [Mass fraction] 7.2 % Abnormal 4.2 - 5. 6 % [facility] Absolute lymphocyte counton 11-02-2021 Lymphocytes Auto (Unsp spec) [#/Vol] 1.09 10*3/uL 0.83-4.51 [facility] Work Phone: Basophil percentageon 2021 Basophil percentage 0 SEEN /hpf 0-5 [facility] Work Phone: Basophils/100 WBC (Bld) 0.4 % 0-1 [facility] [facility] Work Phone: Bilirubin [Mass/Vol] 0.30 mg/dL 0.20-1.00 [facility] Work Phone: Comment on above: For patients on eltr ombopag therapy, use of Dimension [place] TBIL is not recommended. Chloride [Moles/Vol] 108 mmol/L 98-107 [facility] Work Phone: Eosinophils/100 WBC (Bld) 3.3 % 0-5 [facility] Work Phone: Glucose [Mass/Vol] 98 mg/dL 74-106 [facility] Work Phone: Neutrophils (Bld) [#/Vol] 3.2 10*3/uL 2.0-7.7 [facility] Work Phone: Neutrophils/100 WBC (Bld) 61.6 % 47-70 [facility] Work Phone: Potassium [Moles/Vol] 4.1 mmol/L 3.5-5.1 [facility] Work Phone: Protein [Mass/Vol] 6.6 g/dL 6.4-8.2 [facility] Work Phone: Sodium [Moles/Vol] 138 mmol/L 136-145 [facility] Work Phone: WBC (Bld) [#/Vol] 5.1 10*3/uL 4.4-11.0 [facility] Work Phone: Bilirubin Test strip Ql (U)o n 11-02-2021 Bilirubin Ql (U) Negative Negative [facility] Work Phone: Blood erythrocytes count (nu mber/volume)on 11-02-2021 RBC (Bld) [#/Vol] 4.24 10*6/uL 4.6-6.2 [facility] Work Phone: Blood hemoglobin measurement (mass/volume)on 11-02-2021 Hemoglobin (Bld) [Mass/Vol] 11.5 g/dL 13.0-16. 5 [facility] Work Phone: Blood lymphocytes/100 leukoc yteson 11-02-2021 Lymphocytes/100 WBC (Bld) 21.2 % 19-41 [facility] Work Phone: Blood monocytes/100 leukocyt eson 11-02-2021 Monocytes/100 WBC (Bld) 13.1 % 0-10 [facility] Work Phone: Blood platelet mean volumeon 11-02-2021 Platelet mean volume (Bld) [Entitic vol] 9.1 fL 6.2-12.0 [facility] Work Phone: Determination of erythrocyte mean corpuscular volume (MCV)on 11-02-2021 MCV (RBC) [Entitic vol] 84.4 fL 80-94 [facility] Work Phone: Hematocrit Auto (Bld) [Volum e fraction]on 11-02-2021 Hematocrit (Bld) [Volume fraction] 35.8 % 40-54 [facility] Work Phone: Ketones Test strip Ql (U)on 11-02-2021 Ketones Ql (U) Negative Negative [facility] Work Phone: Laboratory - Chemistry and C hemistry - challengeon 11-02-2021 ALP [Catalytic activity/Vol] 66 U/L 45-117 [facility] Work Phone: ALT [Catalytic activity/Vol] 28 U/L 16-61 [facility] Work Phone: CO2 [Moles/Vol] 27.0 mmol/L 21.0-32.0 [facility] Work Phone: Globulin (S) [Mass/Vol] 3.6 g/dL 2.2-4.2 [facility] Work Phone: Urea nitrogen/Creatinine [Mass ratio] 14.3 mg/mg 10-20 [facility] Work Phone: Laboratory - Hematology and Cell countson 11-02-2021 Erythrocyte distribution width (RBC) [Entitic vol] 40.1 fL 35.1-43.9 [facility] Work Phone: Erythrocyte distribution width (RBC) [Ratio] 13.1 % 11.6-14.6 [facility] Work Phone: Immature granulocytes/100 WBC (Bld) 0.400 % 0.0-0.9 [facility] Work Phone: Comment on above: IG% - Immature Granu locytes (promyelocytes, myelocytes and metamyelocytes) > 1% indicates that a LEFT SHIFT is Present. MCH (RBC) [Entitic mass] 27.1 pg 27.0-32.0 [facility] Work Phone: Nucleated RBC/100 WBC (Bld) [Ratio] 0 % 0-5 [facility] Work Phone: MCHC Auto (RBC) [Mass/Vol]on 11-02-2021 MCHC (RBC) [Mass/Vol] 32.1 g/dL 32-36 [facility] Work Phone: Mucus LM Ql (Urine sed)on Mucus Ql (Urine sed) 0 SEEN /hpf [facility] Work Phone: Nitrite Test strip Ql (U)on 11-02-2021 Nitrite Ql (U) Negative Negative [facility] Work Phone: No Panel Informationon 11-02 Estimated Creatinine Clearance Calc 55.89 ml/min [facility] Work Phone: Estimated GFR (MDRD) Amer 51 mL/min >60 [facility] Work Phone: Comment on above: GFR Calc Estimated GFR (MDRD) Non-Af Amer 42 mL/min >60 [facility] Work Phone: Comment on above: Non- GFR Calc Platelets bldon 11-02-2021 Platelets (Bld) [#/Vol] 291 10*3/uL 150-450 [facility] Work Phone: Protein Test strip Ql (U)on 11-02-2021 Protein Ql (U) 500 mg/dl Negative [facility] Work Phone: Serum or plasma albumin jessie urement (mass/volume)on 11-02-2021 Albumin [Mass/Vol] 3.0 g/dL 3.2-5.0 [facility] Work Phone: Serum or plasma albumin/glob ulin mass ratioon 11-02-2021 Albumin/Globulin [Mass ratio] 0.8 {ratio} 0.9-2.4 [facility] Work Phone: Serum or plasma calcium jessie urement (mass/volume)on 11-02-2021 Calcium [Mass/Vol] 8.9 mg/dL 8.5-10.1 [facility] Work Phone: Serum or plasma creatinine m easurement (mass/volume)on 11-02-2021 Creatinine [Mass/Vol] 1.89 mg/dL 0.70-1.30 [facility] Work Phone: Comment on above: The validity of the calculated GFR & GFRAA in patients over 70 years has not been determined. Clinical correlation is essential. Serum or plasma urea nitroge n measurement (mass/volume)on 11-02-2021 Urea nitrogen [Mass/Vol] 27 mg/dL 7-18 [facility] Work Phone: Squamous epithelial cells de tection in urine sediment by light microscopyon 11-02-2021 Epithelial cells.squamous LM Ql (Urine sed) 0-5 SEEN /hpf 0-5 [facility] Work Phone: Thin prep Papanicolaou smear with manual screeningon 11-02-2021 Thin prep Papanicolaou smear with manual screening 25 U/L 15-37 [facility] Work Phone: Thin prep Papanicolaou smear with manual screening 3 5-15 [facility] Work Phone: Urine blood detectionon RBC Ql (U) 25 /ul Negative [facility] Work Phone: RBC Ql (U) 0-5 SEEN /hpf 0-5 [facility] Work Phone: Urine clarityon 11-02-2021 Clarity (U) Clear Clear [facility] Work Phone: Urine color determinationon 11-02-2021 Color (U) Yellow Yellow [facility] Work Phone: Urine glucose detectionon Glucose Ql (U) 50 mg/dl Normal [facility] Work Phone: Urine leukocyte esterase det ection by dipstickon 11-02-2021 Leukocyte esterase Test strip Ql (U) Negative Negative [facility] Work Phone: Urine pHon 11-02-2021 pH (U) 6.0 [pH] 5.0 - 8.0 [facility] Work Phone: Urine sediment bacteria coun t by microscopy (number/high power field)on 11-02-2021 Bacteria LM.HPF (Urine sed) [#/Area] RARE /hpf None Seen [facility] Work Phone: Urine specific gravity measu rementon 11-02-2021 Specific gravity (U) [Rel density] 1.020 1.002-1.030 [facility] Work Phone: Urobilinogen Auto test strip Ql (U)on 11-02-2021 Urobilinogen Ql (U) Normal mg/dl Normal [facility] Work Phone: Laboratory - Hematology and Cell countson 10-08-2021 HbA1c (Bld) [Mass fraction] 8.2 % [facility] Work Phone: Basophil percentageon 2021 Bilirubin [Mass/Vol] 0.20 mg/dL 0.20-1.00 [facility] Work Phone: Comment on above: For patients on eltr ombopag therapy, use of Dimension [place] TBIL is not recommended. Chloride [Moles/Vol] 103 mmol/L 98-107 [facility] Work Phone: Cholesterol [Mass/Vol] 359 mg/dL <[address] [facility] Work Phone: Comment on above: <200 mg/dL Desirable 200-240 mg/dL Borderline >240 mg/dL High Risk Glucose [Mass/Vol] 134 mg/dL 74-106 [facility] Work Phone: Comment on above: Fasting Glucose resu lt greater than or equal to 126 mg/dL suggests DIABETES MELLITUS per A.D.A. criteria. Potassium [Moles/Vol] 4.6 mmol/L 3.5-5.1 [facility] Work Phone: Protein [Mass/Vol] 7.2 g/dL 6.4-8.2 [facility] Work Phone: Sodium [Moles/Vol] 137 mmol/L 136-145 [facility] Work Phone: Triglyceride [Mass/Vol] 124 mg/dL [facility] Work Phone: Comment on above: The drugs N-Acetylcy steine and Metamizole may falsely depress this assay.Serum Triglycerides Reference Interval Normal <150 mg/dL Borderline high 150 - 199 mg/dL High 200 - 499 mg/dL Very High > or = 500 mg/dL Laboratory - Chemistry and C hemistry - challengeon 07-02-2021 ALP [Catalytic activity/Vol] 79 U/L 45-117 [facility] Work Phone: ALT [Catalytic activity/Vol] 25 U/L 16-61 [facility] Work Phone: CO2 [Moles/Vol] 27.0 mmol/L 21.0-32.0 [facility] Work Phone: Globulin (S) [Mass/Vol] 4.0 g/dL 2.2-4.2 [facility] Work Phone: Urea nitrogen/Creatinine [Mass ratio] 13.3 mg/mg 10-20 [facility] Work Phone: No Panel Informationon 07-02 Estimated GFR (MDRD) Amer 60 mL/min >60 [facility] Work Phone: Comment on above: GFR Calc Estimated GFR (MDRD) Non-Af Amer 50 mL/min >60 [facility] Work Phone: Comment on above: Non- GFR Calc Thyroid Stimulating Hormone (TSH) 1.98 uIU/mL 0.358-3.74 [facility] Work Phone: Urine Microalbumin/Creatinine Ratio 2359.8 mg/g CRE <30 [facility] Work Phone: Vitamin D 25-Hydroxy 18.8 ng/mL [facility] Work Phone: Comment on above: Vitamin D 25(OH) Sta tus Range Deficiency <20 ng/mL (50nmol/L) Insufficiency 20 - 30 ng/mL (50 - 75 nmol/L) Sufficiency 30 - 100 ng/mL (75 - 250 nmol/L) Toxicity >100 ng/mL (>250 nmol/L) Serum or plasma albumin jessie urement (mass/volume)on 07-02-2021 Albumin [Mass/Vol] 3.2 g/dL 3.2-5.0 [facility] Work Phone: Serum or plasma albumin/glob ulin mass ratioon 07-02-2021 Albumin/Globulin [Mass ratio] 0.8 {ratio} 0.9-2.4 [facility] Work Phone: Serum or plasma calcium jessie urement (mass/volume)on 07-02-2021 Calcium [Mass/Vol] 9.0 mg/dL 8.5-10.1 [facility] Work Phone: Serum or plasma cholesterol in HDL measurement (mass/volume)on 07-02-2021 Cholesterol in HDL [Mass/Vol] 62 mg/dL [facility] Work Phone: Comment on above: The drugs N-Acetylcy steine and Metamizole may falsely depress this assay. Reference Range HDL <40 mg/dL Low HDL Cholesterol HDL >or= 60 mg/dL High HDL Cholesterol Serum or plasma cholesterol in VLDL measurement (mass/volume)on 07-02-2021 Cholesterol in VLDL [Mass/Vol] 25 mg/dL 5-40 [facility] Work Phone: Serum or plasma creatinine m easurement (mass/volume)on 07-02-2021 Creatinine [Mass/Vol] 1.65 mg/dL 0.70-1.30 [facility] Work Phone: Comment on above: The validity of the calculated GFR & GFRAA in patients over 70 years has not been determined. Clinical correlation is essential. Serum or plasma low density lipoprotein (LDL) cholesterol measurement (mass/volume)on 07-02-2021 Cholesterol in LDL [Mass/Vol] 272 mg/dL 0-130 [facility] Work Phone: Serum or plasma urea nitroge n measurement (mass/volume)on 07-02-2021 Urea nitrogen [Mass/Vol] 22 mg/dL 7-18 [facility] Work Phone: Thin prep Papanicolaou smear with manual screeningon 07-02-2021 Thin prep Papanicolaou smear with manual screening 18 U/L 15-37 [facility] Work Phone: Thin prep Papanicolaou smear with manual screening 7 5-15 [facility] Work Phone: Thin prep Papanicolaou smear with manual screening 3870.0 mg/L NO RANGE EST. [facility] Work Phone: Urine creatinine measurement (mass/volume)on 07-02-2021 Creatinine (U) [Mass/Vol] 164.00 mg/dL NO RANGE EST. [facility] Work Phone: Laboratory - Hematology and Cell countson 06-04-2021 HbA1c (Bld) [Mass fraction] 8.1 % [facility] Work Phone: XR Foot - right AP and Later al and obliqueon 02-04-2020 IMPRESSION: Acute, mildly impacted fracture of the fifth proximal phalanx. 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 Acute, mildly impacted, extra-articular fracture of the proximal shaft of the fifth proximal phalanx. No additional osseous injury identified. 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 Acute, mildly impacted, extra-articular fracture of the proximal shaft of the fifth proximal phalanx. No additional osseous injury identified. IMPRESSION IMPRESSION: Acute, mildly impacted fracture of the fifth proximal phalanx. Imcu Specialist: NEW Transcribe Date/Time: Feb 04 2020 4:20P Dictated by : OLEG VASQUEZ MD This examination was interpreted and the report reviewed and electronically signed by: OLEG VASQUEZ MD on Feb 04 2020 4:22PM EST [facility] Radiology Study observation (narrative) [facility] XR Foot - right AP and Later al and obliqueOrdered By: [facility] Provider on 02-04-2020 [facility] Vital Signs Date Time Vital Sign Value Performing Clinician Facility 09-21-2024 11:45-0400 Body mass index (BMI) [Ratio] 27.61 kg/m2 Kristal Sullivan MD Work Phone: [facility] 09-21-2024 11:45-0400 Body weight 89.45 kg Kristal Sullivan MD Work Phone: [facility] 09-21-2024 11:45-0400 Diastolic blood pressure 80 mm[Hg] Kristal Sullivan MD Work Phone: [facility] 09-21-2024 11:45-0400 Heart rate 82 /min Kristal Sullivan MD Work Phone: [facility] 09-21-2024 11:45-0400 Respiratory rate 16 /min Kristal Sullivan MD Work Phone: [facility] 09-21-2024 11:45-0400 Systolic blood pressure 135 mm[Hg] Kristal Sullivan MD Work Phone: [facility] 09-07-2024 13:18-0400 Body height 180.[address] Kristal Sullivan MD Work Phone: [facility] 09-07-2024 13:18-0400 Body mass index (BMI) [Ratio] 27.3 kg/m2 Dr. Kristal Sullivan MD Work Phone: 3(421)527-228605 [place] [address] 09-07-2024 13:18-0400 Body weight 88.[address] Kristal Sullivan MD Work Phone: 7(105)862-582592 [place] [address] 09-07-2024 13:18-0400 Diastolic blood pressure 84 mm[Hg] Dr. Kristal Sullivan MD Work Phone: 7(523)476-621592 [place] [address] 09-07-2024 13:18-0400 Heart rate 81 /min Dr. Kristal Sullivan MD Work Phone: 4(968)905-604192 [place] [address] 09-07-2024 13:18-0400 Respiratory rate 16 /min Dr. Kristal Sullivan MD Work Phone: 8(585)489-209192 [place] [address] 09-07-2024 13:18-0400 SaO2% (BldA) [Mass fraction] 98 % Dr. Kristal Sullivan MD Work Phone: 3(218)748-363292 [place] [address] 09-07-2024 13:18-0400 Systolic blood pressure 133 mm[Hg] Dr. Kristal Sullivan MD Work Phone: 8(034)550-546192 [place] [address] 08-31-2024 15:09-0400 Body height 180.[address] Kristal Sullivan MD Work Phone: 4(424)425-738292 [place] [address] 08-31-2024 15:09-0400 Body mass index (BMI) [Ratio] 27.3 kg/m2 Dr. Kristal Sullivan MD Work Phone: 4(853)475-012592 [place] [address] 08-31-2024 15:09-0400 Body weight 88.[address] Kristal Sullivan MD Work Phone: 9(845)577-048192 [place] [address] 08-31-2024 15:09-0400 Diastolic blood pressure 92 mm[Hg] Dr. Kristal Sullivan MD Work Phone: 0(519)073-610092 [place] [address] 08-31-2024 15:09-0400 Heart rate 88 /min Dr. Kristal Sullivan MD Work Phone: 2(620)070-105292 [place] [address] 08-31-2024 15:09-0400 Respiratory rate 18 /min Dr. Kristal Sullivan MD Work Phone: 6(524)967-620192 [place] [address] 08-31-2024 15:09-0400 SaO2% (BldA) [Mass fraction] 97 % Dr. Kristal Sullivan MD Work Phone: 3(588)519-192692 [place] [address] 08-31-2024 15:09-0400 Systolic blood pressure 136 mm[Hg] Dr. Kristal Sullivan MD Work Phone: 4(056)551-081292 [place] [address] 08-31-2024 11:45-0400 Body temperature 98 [degF] Dr. Kristal Sullivan MD Work Phone: 5(696)752-552292 [place] [address] 08-31-2024 11:45-0400 Diastolic blood pressure 65 mm[Hg] Dr. Kristal Sullivan MD Work Phone: 1(066)619-401592 [place] [address] 08-31-2024 11:45-0400 Heart rate 79 /min Dr. Kristal Sullivan MD Work Phone: 6(479)507-905792 [place] [address] 08-31-2024 11:45-0400 Respiratory rate 16 /min Dr. Kristal Sullivan MD Work Phone: 1(657)055-156092 [place] [address] 08-31-2024 11:45-0400 SaO2% (BldA) [Mass fraction] 96 % Dr. Kristal Sullivan MD Work Phone: 2(426)346-942792 [place] [address] 08-31-2024 11:45-0400 Systolic blood pressure 121 mm[Hg] Dr. Kristal Sullivan MD Work Phone: 5(703)018-751392 [place] [address] 08-31-2024 10:38-0400 Body height 180.[address] Kristal Sullivan MD Work Phone: 4(873)009-261092 [place] [address] 08-31-2024 10:38-0400 Body mass index (BMI) [Ratio] 27 kg/m2 Dr. Kristal Sullivan MD Work Phone: 3(275)329-039092 [place] [address] 08-31-2024 10:38-0400 Body weight [address] Kristal Sullivan MD Work Phone: 2(664)084-521492 [place] [address] 08-28-2024 12:14-0400 Body temperature 97.3 [degF] Ervin Mejia MD Work Phone: [facility] 08-28-2024 12:14-0400 Diastolic blood pressure 89 mm[Hg] Ervin Mejia MD Work Phone: [facility] 08-28-2024 12:14-0400 Heart rate 86 /min Ervin Mejia MD Work Phone: [facility] 08-28-2024 12:14-0400 Respiratory rate 20 /min Erivn Mejia MD Work Phone: [facility] 08-28-2024 12:14-0400 SaO2% (BldA) [Mass fraction] 97 % Ervin Mejia MD Work Phone: [facility] 08-28-2024 12:14-0400 Systolic blood pressure 155 mm[Hg] Ervin Mejia MD Work Phone: [facility] 08-25-2024 11:00-0400 Body mass index (BMI) [Ratio] 27.59 kg/m2 Ervin Mejia MD Work Phone: [facility] 08-25-2024 11:00-0400 Body weight 89.72 kg Ervin Mejia MD Work Phone: [facility] 08-23-2024 10:31-0400 Body height 180.3 cm Ervin Mejia MD Work Phone: [facility] 08-23-2024 07:00-0400 Diastolic blood pressure 67 mm[Hg] Dr. Kristal Sullivan MD Work Phone: [facility] 08-23-2024 07:00-0400 Heart rate 97 /min Dr. Kristal Sullivan MD Work Phone: [facility] 08-23-2024 07:00-0400 Respiratory rate 18 /min Dr. Kristal Sullivan MD Work Phone: [facility] 08-23-2024 07:00-0400 SaO2% (BldA) [Mass fraction] 99 % Dr. Kristal Sullivan MD Work Phone: [facility] 08-23-2024 07:00-0400 Systolic blood pressure 118 mm[Hg] Dr. Kristal Sullivan MD Work Phone: [facility] 08-23-2024 06:58-0400 Body temperature 99.2 [degF] Dr. Kristal Sullivan MD Work Phone: 0(967)873-328692 [place] [address] 08-23-2024 00:57-0400 Body mass index (BMI) [Ratio] 26.5 kg/m2 Dr. Kristal Sullivan MD Work Phone: 6(992)169-149592 [place] [address] 08-23-2024 00:57-0400 Body weight 86.[address] Kristal Sullivan MD Work Phone: 3(821)998-079092 [place] [address] 08-23-2024 00:31-0400 Body height 180.[address] Kristal Sullivan MD Work Phone: 2(333)199-962192 [place] [address] 08-17-2024 14:47-0400 Body height 180.[address] Kristal Sullivan MD Work Phone: 6(234)742-696292 [place] [address] 08-17-2024 14:47-0400 Body mass index (BMI) [Ratio] 26.6 kg/m2 Dr. Kristal Sullivan MD Work Phone: 7(713)529-135192 [place] [address] 08-17-2024 14:47-0400 Body weight 86.[address] Kristal Sullivan MD Work Phone: 1(672)651-154992 [place] [address] 08-17-2024 14:47-0400 Diastolic blood pressure 88 mm[Hg] Dr. Kristal Sullivan MD Work Phone: 8(857)812-178392 [place] [address] 08-17-2024 14:47-0400 Heart rate 98 /min Dr. Kristal Sullivan MD Work Phone: 5(708)840-578792 [place] [address] 08-17-2024 14:47-0400 Respiratory rate 18 /min Dr. Kristal Sullivan MD Work Phone: 6(956)747-336092 [place] [address] 08-17-2024 14:47-0400 SaO2% (BldA) [Mass fraction] 98 % Dr. Kristal Sullivan MD Work Phone: 3(449)745-664592 [place] [address] 08-17-2024 14:47-0400 Systolic blood pressure 123 mm[Hg] Dr. Kristal Sullivan MD Work Phone: 6(920)291-473792 [place] [address] 08-11-2024 16:02-0400 Diastolic blood pressure 67 mm[Hg] Dr. Kristal Sullivan MD Work Phone: 7(704)864-364592 [place] [address] 08-11-2024 16:02-0400 Heart rate 102 /min Dr. Kristal Sullivan MD Work Phone: 8(411)839-657092 [place] [address] 08-11-2024 16:02-0400 Systolic blood pressure 136 mm[Hg] Dr. Kristal Sullivan MD Work Phone: 3(858)222-324192 [place] [address] 08-11-2024 15:03-0400 Body temperature 98.1 [degF] Dr. Kristal Sullivan MD Work Phone: 2(531)654-893992 [place] [address] 08-11-2024 15:03-0400 Respiratory rate 16 /min Dr. Kristal Sullivan MD Work Phone: 5(930)161-756492 [place] [address] 08-11-2024 15:03-0400 SaO2% (BldA) [Mass fraction] 98 % Dr. Kristal Sullivan MD Work Phone: 4(960)099-591492 [place] [address] 08-11-2024 14:42-0400 Body mass index (BMI) [Ratio] 26.9 kg/m2 Dr. Kristal Sullivan MD Work Phone: 1(148)014-176292 [place] [address] 08-11-2024 14:42-0400 Body weight 87.[address] Kristal Sullivan MD Work Phone: 5(818)178-912492 [place] [address] 08-11-2024 14:02-0400 Body height 180.[address] Kristal Sullivan MD Work Phone: 7(569)214-817592 [place] [address] 08-10-2024 23:50-0400 Body temperature 98.3 [degF] Dr. Kristal Sullivan MD Work Phone: 1(757)870-388292 [place] [address] 08-10-2024 23:50-0400 Diastolic blood pressure 96 mm[Hg] Dr. Kristal Sullivan MD Work Phone: 2(226)061-119292 [place] [address] 08-10-2024 23:50-0400 Heart rate 108 /min Dr. Kristal Sullivan MD Work Phone: 3(578)219-635292 [place] [address] 08-10-2024 23:50-0400 Respiratory rate 19 /min Dr. Kristal Sullivan MD Work Phone: 3(690)521-930792 [place] [address] 08-10-2024 23:50-0400 SaO2% (BldA) [Mass fraction] 100 % Dr. Kristal Sullivan MD Work Phone: 2(382)473-825292 [place] [address] 08-10-2024 23:50-0400 Systolic blood pressure 164 mm[Hg] Dr. Kristal Sullivan MD Work Phone: 8(621)591-814492 [place] [address] 08-10-2024 19:36-0400 Body height 180.[address] Kristal Sullivan MD Work Phone: 2(986)709-914092 [place] [address] 08-10-2024 19:36-0400 Body mass index (BMI) [Ratio] 27.7 kg/m2 Dr. Kristal Sullivan MD Work Phone: 7(960)609-302392 [place] [address] 08-10-2024 19:36-0400 Body weight 90.[address] Kristal Sullivan MD Work Phone: 7(042)539-903192 [place] [address] 08-05-2024 10:54-0400 Body temperature 97.8 [degF] Dr. Kristal Sullivan MD Work Phone: 2(535)708-073592 [place] [address] 08-05-2024 10:54-0400 Body weight 91.[address] Kristal Sullivan MD Work Phone: 1(608)961-824092 [place] [address] 08-05-2024 10:54-0400 Diastolic blood pressure 94 mm[Hg] Dr. Kristal Sullivan MD Work Phone: 2(514)437-660392 [place] [address] 08-05-2024 10:54-0400 Heart rate 96 /min Dr. Kristal Sullivan MD Work Phone: 0(246)448-664292 [place] [address] 08-05-2024 10:54-0400 Respiratory rate 16 /min Dr. Kristal Sullivan MD Work Phone: 4(965)258-126592 [place] [address] 08-05-2024 10:54-0400 SaO2% (BldA) [Mass fraction] 98 % Dr. Kristal Sullivan MD Work Phone: 0(383)599-308292 [place] [address] 08-05-2024 10:54-0400 Systolic blood pressure 142 mm[Hg] Dr. Kristal Sullivan MD Work Phone: 1(682)442-901192 [place] [address] 07-28-2024 10:37-0400 Body mass index (BMI) [Ratio] 28.5 kg/m2 Dr. Kristal Sullivan MD Work Phone: 1(959)894-420392 [place] [address] 07-28-2024 10:37-0400 Body weight 92.[address] Kristal Sullivan MD Work Phone: 4(147)127-227192 [place] [address] 07-28-2024 10:37-0400 Diastolic blood pressure 93 mm[Hg] Dr. Kristal Sullivan MD Work Phone: 7(513)835-349492 [place] [address] 07-28-2024 10:37-0400 Heart rate 80 /min Dr. Kristal Sullivan MD Work Phone: 8(411)295-229792 [place] [address] 07-28-2024 10:37-0400 SaO2% (BldA) [Mass fraction] 97 % Dr. Kristal Sullivan MD Work Phone: 4(976)584-100492 [place] [address] 07-28-2024 10:37-0400 Systolic blood pressure 189 mm[Hg] Dr. Kristal Sullivan MD Work Phone: 3(210)318-749492 [place] [address] 07-20-2024 17:15-0400 Diastolic blood pressure 88 mm[Hg] Dr. Kristal Sullivan MD Work Phone: 3(124)786-432792 [place] [address] 07-20-2024 17:15-0400 Heart rate 67 /min Dr. Kristal Sullivan MD Work Phone: 9(220)740-828392 [place] [address] 07-20-2024 17:15-0400 Respiratory rate 16 /min Dr. Kristal Sullivan MD Work Phone: 2(471)911-540092 [place] [address] 07-20-2024 17:15-0400 SaO2% (BldA) [Mass fraction] 94 % Dr. Kristal Sullivan MD Work Phone: 0(132)438-773892 [place] [address] 07-20-2024 17:15-0400 Systolic blood pressure 158 mm[Hg] Dr. Kristal Sullivan MD Work Phone: 9(666)251-672592 [place] [address] 07-20-2024 16:55-0400 Body temperature 97.3 [degF] Dr. Kristal Sullivan MD Work Phone: [facility] 07-20-2024 13:23-0400 Body height 180.[address] Kristal Sullivan MD Work Phone: [facility] 07-20-2024 13:23-0400 Body mass index (BMI) [Ratio] 28.5 kg/m2 Dr. Kristal Sullivan MD Work Phone: [facility] 07-20-2024 13:23-0400 Body weight 92.[address] Kristal Sullivan MD Work Phone: [facility] 07-07-2024 07:22-0400 Body height 180.34 cm No Primary Care Physician [facility] 07-07-2024 07:22-0400 Body weight 92.98 kg No Primary Care Physician [facility] 06-30-2024 08:01-0400 Body mass index (BMI) [Ratio] 28.5 kg/m2 No Primary Care Physician [facility] 06-18-2024 11:27-0400 Body temperature 98.4 [degF] No Primary Care Physician [facility] 06-18-2024 11:27-0400 Body weight 92.98 kg No Primary Care Physician [facility] 06-18-2024 11:27-0400 Diastolic blood pressure 94 mm[Hg] No Primary Care Physician [facility] 06-18-2024 11:27-0400 Heart rate 84 /min No Primary Care Physician [facility] 06-18-2024 11:27-0400 Respiratory rate 16 /min No Primary Care Physician [facility] 06-18-2024 11:27-0400 SaO2% (BldA) [Mass fraction] 99 % No Primary Care Physician [facility] 06-18-2024 11:27-0400 Systolic blood pressure 151 mm[Hg] No Primary Care Physician [facility] 06-15-2024 13:30-0400 Body height 180 cm Kristal Sullivan MD Work Phone: [facility] 06-15-2024 13:30-0400 Body mass index (BMI) [Ratio] 28.28 kg/m2 Kristal Sullivan MD Work Phone: [facility] 06-15-2024 13:30-0400 Body weight 91.63 kg Kristal Sullivan MD Work Phone: [facility] 06-15-2024 13:30-0400 Diastolic blood pressure 66 mm[Hg] Kristal Sullivan MD Work Phone: [facility] 06-15-2024 13:30-0400 Heart rate 90 /min Kristal Sullivan MD Work Phone: [facility] 06-15-2024 13:30-0400 SaO2% (BldA) [Mass fraction] 97 % Kristal Sullivan MD Work Phone: [facility] 06-15-2024 13:30-0400 Systolic blood pressure 118 mm[Hg] Kristal Sullivan MD Work Phone: [facility] 04-23-2024 08:17-0500 Body temperature 98.2 [degF] No Primary Care Physician [facility] 04-23-2024 08:17-0500 Body weight 96.16 kg No Primary Care Physician [facility] 04-23-2024 08:17-0500 Diastolic blood pressure 101 mm[Hg] No Primary Care Physician [facility] 04-23-2024 08:17-0500 Heart rate 93 /min No Primary Care Physician [facility] 04-23-2024 08:17-0500 Respiratory rate 16 /min No Primary Care Physician [facility] 04-23-2024 08:17-0500 SaO2% (BldA) [Mass fraction] 98 % No Primary Care Physician [facility] 04-23-2024 08:17-0500 Systolic blood pressure 184 mm[Hg] No Primary Care Physician [facility] 04-20-2024 12:23-0500 Body temperature 98 [degF] No Primary Care Physician [facility] 04-20-2024 12:23-0500 Diastolic blood pressure 74 mm[Hg] No Primary Care Physician [facility] 04-20-2024 12:23-0500 Heart rate 89 /min No Primary Care Physician [facility] 04-20-2024 12:23-0500 Respiratory rate 16 /min No Primary Care Physician [facility] 04-20-2024 12:23-0500 SaO2% (BldA) [Mass fraction] 97 % No Primary Care Physician [facility] 04-20-2024 12:23-0500 Systolic blood pressure 164 mm[Hg] No Primary Care Physician [facility] 04-20-2024 10:23-0500 Body height 180.34 cm No Primary Care Physician [facility] 04-20-2024 10:23-0500 Body mass index (BMI) [Ratio] 29.3 kg/m2 No Primary Care Physician [facility] 04-20-2024 10:23-0500 Body weight 95.5 kg No Primary Care Physician [facility] 02-25-2024 10:16-0500 Body mass index (BMI) [Ratio] 27.9 kg/m2 No Primary Care Physician [facility] 02-25-2024 10:16-0500 Body weight 90.83 kg No Primary Care Physician [facility] 02-25-2024 10:16-0500 Diastolic blood pressure 71 mm[Hg] No Primary Care Physician [facility] 02-25-2024 10:16-0500 Heart rate 60 /min No Primary Care Physician [facility] 02-25-2024 10:16-0500 SaO2% (BldA) [Mass fraction] 94 % No Primary Care Physician [facility] 02-25-2024 10:16-0500 Systolic blood pressure 129 mm[Hg] No Primary Care Physician [facility] 02-25-2024 09:17-0500 Body mass index (BMI) [Ratio] 27.7 kg/m2 No Primary Care Physician [facility] 02-25-2024 09:17-0500 Body weight 90.26 kg No Primary Care Physician [facility] 02-25-2024 09:17-0500 Diastolic blood pressure 75 mm[Hg] No Primary Care Physician [facility] 02-25-2024 09:17-0500 Heart rate 84 /min No Primary Care Physician [facility] 02-25-2024 09:17-0500 Respiratory rate 18 /min No Primary Care Physician [facility] 02-25-2024 09:17-0500 SaO2% (BldA) [Mass fraction] 100 % No Primary Care Physician [facility] 02-25-2024 09:17-0500 Systolic blood pressure 110 mm[Hg] No Primary Care Physician [facility] 08-28-2023 12:51-0400 Body height 180.[address] Work Phone: [facility] 08-28-2023 12:51-0400 Body mass index (BMI) [Ratio] 29.43 kg/m2 Virgen Stroud RD Work Phone: [facility] 08-28-2023 12:51-0400 Body weight 95.[address] Work Phone: [facility] 08-01-2023 11:37-0400 Body temperature 97.5 [degF] Dr. Kristal Sullivan Work Phone: 0(289)791-345505 [place] [address] 08-01-2023 11:37-0400 Diastolic blood pressure 90 mm[Hg] Dr. Kristal Sullivan Work Phone: 3(251)846-437105 [place] [address] 08-01-2023 11:37-0400 Heart rate 68 /min Dr. Kristal Sullivan Work Phone: 2(930)691-964705 [place] [address] 08-01-2023 11:37-0400 Respiratory rate 18 /min Dr. Kristal Sullivan Work Phone: [facility] 08-01-2023 11:37-0400 SaO2% (BldA) [Mass fraction] 96 % Dr. Kristal Sullivan Work Phone: [facility] 08-01-2023 11:37-0400 Systolic blood pressure 143 mm[Hg] Dr. Kristal Sullivan Work Phone: 4(521)620-034505 [place] [address] 08-01-2023 10:35-0400 Inhaled oxygen flow rate 2 L/min Dr. Kristal Sullivan Work Phone: 1(769)400-379705 [place] [address] 08-01-2023 07:06-0400 Body height 180.[address] Kristal Sullivan Work Phone: 5(016)026-293205 [place] [address] 08-01-2023 07:06-0400 Body mass index (BMI) [Ratio] 29.8 kg/m2 Dr. Kristal Sullivan Work Phone: 3(189)750-899592 [place] [address] 08-01-2023 07:06-0400 Body weight [address] Kristal Sullivan Work Phone: 4(266)889-778892 [place] [address] 07-30-2023 14:21-0400 Body mass index (BMI) [Ratio] 30.5 kg/m2 Dr. Kristal Sullivan Work Phone: 1(004)257-781792 [place] [address] 07-30-2023 14:21-0400 Body weight 99.[address] Kristal Sullivan Work Phone: 5(658)280-012892 [place] [address] 07-30-2023 14:21-0400 Diastolic blood pressure 87 mm[Hg] Dr. Kristal Sullivan Work Phone: 3(280)238-865792 [place] [address] 07-30-2023 14:21-0400 Respiratory rate 16 /min Dr. Kristal Sullivan Work Phone: 2(635)660-970592 [place] [address] 07-30-2023 14:21-0400 Systolic blood pressure 157 mm[Hg] Dr. Kristal Sullivan Work Phone: 6(183)620-818392 [place] [address] 07-03-2023 12:05-0400 SaO2% (BldA) [Mass fraction] 97 % Dr. Kristal Sullivan Work Phone: 1(692)120-789992 [place] [address] 07-03-2023 08:50-0400 Heart rate 85 /min Dr. Kristal Sullivan Work Phone: 7(034)220-279492 [place] [address] 07-03-2023 08:48-0400 Body temperature 97.8 [degF] Dr. Kristal Sullivan Work Phone: 6(677)870-950992 [place] [address] 07-03-2023 08:48-0400 Diastolic blood pressure 96 mm[Hg] Dr. Kristal Sullivan Work Phone: 6(407)379-065092 [place] [address] 07-03-2023 08:48-0400 Respiratory rate 11 /min Dr. Kristal Sullivan Work Phone: 6(712)084-823892 [place] [address] 07-03-2023 08:48-0400 Systolic blood pressure 160 mm[Hg] Dr. Kristal Sullivan Work Phone: 5(306)698-312605 [place] [address] 07-02-2023 11:34-0400 Body height 180.[address] Kristal Sullivan Work Phone: 8(549)213-612992 [place] [address] 07-02-2023 11:34-0400 Body weight 103.[address] Kristal Sullivan Work Phone: 3(977)446-019092 [place] [address] 07-02-2023 10:00-0400 Body temperature 98.2 [degF] Dr. Kristal Sullivan Work Phone: 2(770)814-495292 [place] [address] 07-02-2023 10:00-0400 Diastolic blood pressure 98 mm[Hg] Dr. Kristal Sullivan Work Phone: 1(166)563-225292 [place] [address] 07-02-2023 10:00-0400 Heart rate 93 /min Dr. Kristal Sullivan Work Phone: 1(932)876-959492 [place] [address] 07-02-2023 10:00-0400 Respiratory rate 16 /min Dr. Kristal Sullivan Work Phone: 0(313)040-146492 [place] [address] 07-02-2023 10:00-0400 SaO2% (BldA) [Mass fraction] 91 % Dr. Kristal Sullivan Work Phone: 2(358)039-886805 [place] [address] 07-02-2023 10:00-0400 Systolic blood pressure 175 mm[Hg] Dr. Kristal Sullivan Work Phone: 7(531)595-753705 [place] [address] 07-01-2023 19:29-0400 Body mass index (BMI) [Ratio] 31.7 kg/m2 Dr. Kristal Sullivan Work Phone: 8(705)042-819692 [place] [address] 07-01-2023 19:01-0400 Body temperature 98 [degF] Dr. Kristal Sullivan Work Phone: 4(274)471-484392 [place] [address] 07-01-2023 19:01-0400 Diastolic blood pressure 66 mm[Hg] Dr. Kristal Sullivan Work Phone: 8(515)117-116205 [place] [address] 07-01-2023 19:01-0400 Heart rate 90 /min Dr. Kristal Sullivan Work Phone: 3(460)029-440192 [place] [address] 07-01-2023 19:01-0400 Respiratory rate 18 /min Dr. Kristal Sullivan Work Phone: 3(620)993-731392 [place] [address] 07-01-2023 19:01-0400 SaO2% (BldA) [Mass fraction] 93 % Dr. Kristal Sullivan Work Phone: 5(065)708-580292 [place] [address] 07-01-2023 19:01-0400 Systolic blood pressure 140 mm[Hg] Dr. Kristal Sullivan Work Phone: 3(055)854-857392 [place] [address] 07-01-2023 12:53-0400 Body height 180.[address] Kristal Sullivan Work Phone: 2(930)312-901192 [place] [address] 07-01-2023 12:53-0400 Body mass index (BMI) [Ratio] 32.2 kg/m2 Dr. Kristal Sullivan Work Phone: 8(025)487-385892 [place] [address] 07-01-2023 12:53-0400 Body weight 104.[address] Kristal Sullivan Work Phone: 0(791)394-019992 [place] [address] 05-14-2023 13:10-0500 Body height 180.[address] Kristal Sullivan Work Phone: 0(331)858-262292 [place] [address] 05-14-2023 13:10-0500 Body mass index (BMI) [Ratio] 32.1 kg/m2 Dr. Kristal Sullivan Work Phone: 3(264)199-714392 [place] [address] 05-14-2023 13:10-0500 Body temperature 98.6 [degF] Dr. Kristal Sullivan Work Phone: 0(379)824-794492 [place] [address] 05-14-2023 13:10-0500 Body weight 104.[address] Kristal Sullivan Work Phone: 9(951)452-310592 [place] [address] 05-14-2023 13:10-0500 Diastolic blood pressure 90 mm[Hg] Dr. Kristal Sullivan Work Phone: 1(708)667-471492 [place] [address] 05-14-2023 13:10-0500 Heart rate 86 /min Dr. Kristal Sullivan Work Phone: 6(972)919-067592 [place] [address] 05-14-2023 13:10-0500 Respiratory rate 18 /min Dr. Kristal Sullivan Work Phone: 0(448)311-230392 [place] [address] 05-14-2023 13:10-0500 SaO2% (BldA) [Mass fraction] 99 % Dr. Kristal Sullivan Work Phone: 3(066)829-399292 [place] [address] 05-14-2023 13:10-0500 Systolic blood pressure 180 mm[Hg] Dr. Kristal Sullivan Work Phone: 9(469)782-735392 [place] [address] 04-07-2023 11:16-0500 Body mass index (BMI) [Ratio] 31.1 kg/m2 Dr. Kristal Sullivan Work Phone: 6(991)681-866492 [place] [address] 04-07-2023 11:16-0500 Body temperature 97.3 [degF] Dr. Kristal Sullivan Work Phone: 5(695)020-309292 [place] [address] 04-07-2023 11:16-0500 Body weight 101.[address] Kristal Sullivan Work Phone: 7(949)762-280992 [place] [address] 04-07-2023 11:16-0500 Diastolic blood pressure 104 mm[Hg] Dr. Kristal Sullivan Work Phone: 8(264)769-850592 [place] [address] 04-07-2023 11:16-0500 Heart rate 101 /min Dr. Kristal Sullivan Work Phone: 5(935)504-208892 [place] [address] 04-07-2023 11:16-0500 Respiratory rate 18 /min Dr. Kristal Sullivan Work Phone: 0(493)816-112892 [place] [address] 04-07-2023 11:16-0500 SaO2% (BldA) [Mass fraction] 99 % Dr. Kristal Sullivan Work Phone: 8(349)538-835692 [place] [address] 04-07-2023 11:16-0500 Systolic blood pressure 187 mm[Hg] Dr. Kristal Sullivan Work Phone: 5(349)552-972792 [place] [address] 07-02-2022 12:16-0400 Diastolic blood pressure 96 mm[Hg] Yas Murray [employer] Work Phone: [facility] 07-02-2022 12:16-0400 Heart rate 87 /min Yas Murray [employer]LECT[employer]OMECH[employer]IC Work Phone: [facility] 07-02-2022 12:16-0400 Systolic blood pressure 166 mm[Hg] Yas Murray [employer].ELECTROMECH[employer]IC Work Phone: [facility] 07-02-2022 12:05-0400 Body weight 94.8 kg Yas Murray [employer].ELECTROMECH[employer]IC Work Phone: [facility] 07-02-2022 12:05-0400 Respiratory rate 16 /min Yas Murray [employer].ELECTROMECH[employer]IC Work Phone: [facility] 05-31-2022 12:02-0500 Diastolic blood pressure 92 mm[Hg] Kristal Sullivan MD Work Phone: [facility] 05-31-2022 12:02-0500 Systolic blood pressure 136 mm[Hg] Kristal Sullivan MD Work Phone: [facility] 05-31-2022 11:45-0500 Body height 180.3 cm Kristal Sullivan MD Work Phone: [facility] 05-31-2022 11:45-0500 Body temperature 97.9 [degF] Kristal Sullivan MD Work Phone: [facility] 05-31-2022 11:45-0500 Body weight 94.8 kg Kristal Sullivan MD Work Phone: [facility] 05-31-2022 11:45-0500 Heart rate 96 /min Kristal Sullivan MD Work Phone: [facility] 05-31-2022 11:45-0500 Respiratory rate 12 /min Kristal Sullivan MD Work Phone: [facility] 05-31-2022 11:45-0500 SaO2% (BldA) [Mass fraction] 100 % Kristal Sullivan MD Work Phone: [facility] 04-26-2022 11:40-0500 Body height 180.3 cm Kristal Sullivan MD Work Phone: [facility] 04-26-2022 11:40-0500 Body temperature 99.39 [degF] Kristal Sullivan MD Work Phone: [facility] 04-26-2022 11:40-0500 Body weight 100.25 kg Kristal Sullivan MD Work Phone: [facility] 04-26-2022 11:40-0500 Diastolic blood pressure 76 mm[Hg] Kristal Sullivan MD Work Phone: [facility] 04-26-2022 11:40-0500 Heart rate 96 /min Kristal Sullivan MD Work Phone: [facility] 04-26-2022 11:40-0500 Respiratory rate 12 /min Kristal Sullivan MD Work Phone: [facility] 04-26-2022 11:40-0500 SaO2% (BldA) [Mass fraction] 99 % Kristal Sullivan MD Work Phone: [facility] 04-26-2022 11:40-0500 Systolic blood pressure 136 mm[Hg] Kristal Sullivan MD Work Phone: [facility] 11-02-2021 19:18-0400 Diastolic blood pressure 99 mm[Hg] Dr. Kristal Sullivan Work Phone: [facility] Work Phone: 11-02-2021 19:18-0400 Heart rate 79 /min Dr. Kristal Sullivan Work Phone: [facility] Work Phone: 11-02-2021 19:18-0400 Respiratory rate 18 /min Dr. Kristal Sullivan Work Phone: [facility] Work Phone: 11-02-2021 19:18-0400 SaO2% (BldA) [Mass fraction] 100 % Dr. Kristal Sullivan Work Phone: [facility] Work Phone: 11-02-2021 19:18-0400 Systolic blood pressure 150 mm[Hg] Dr. Kristal Sullivan Work Phone: [facility] Work Phone: 11-02-2021 16:25-0400 Body height 180.[address] Kristal Sullivan Work Phone: [facility] Work Phone: 11-02-2021 16:25-0400 Body mass index (BMI) [Ratio] 30.8 kg/m2 Dr. Kristal Sullivan Work Phone: [facility] Work Phone: 11-02-2021 16:25-0400 Body temperature 98.7 [degF] Dr. Kristal Sullivan Work Phone: [facility] Work Phone: 11-02-2021 16:25-0400 Body weight 100.[address] Kristal Sullivan Work Phone: [facility] Work Phone: 10-08-2021 14:15-0400 Body mass index (BMI) [Ratio] 30.9 kg/m2 Dr. Kristal Sullivan Work Phone: [facility] Work Phone: 10-08-2021 14:15-0400 Body temperature 97.1 [degF] Dr. Kristal Sullivan Work Phone: [facility] Work Phone: 10-08-2021 14:15-0400 Body weight 100.[address] Kristal Sullivan Work Phone: [facility] Work Phone: 10-08-2021 14:15-0400 Diastolic blood pressure 80 mm[Hg] Dr. Kristal Sullivan Work Phone: [facility] Work Phone: 10-08-2021 14:15-0400 Heart rate 103 /min Dr. Kristal Sullivan Work Phone: [facility] Work Phone: 10-08-2021 14:15-0400 Respiratory rate 18 /min Dr. Kristal Sullivan Work Phone: [facility] Work Phone: 10-08-2021 14:15-0400 SaO2% (BldA) [Mass fraction] 98 % Dr. Kristal Sullivan Work Phone: [facility] Work Phone: 10-08-2021 14:15-0400 Systolic blood pressure 130 mm[Hg] Dr. Kristal Sullivan Work Phone: [facility] Work Phone: 07-02-2021 13:52-0400 Body height 180.[address] Kristal Sullivan Work Phone: [facility] Work Phone: 07-02-2021 13:52-0400 Body mass index (BMI) [Ratio] 29.3 kg/m2 Dr. Kristal Sullivan Work Phone: [facility] Work Phone: 07-02-2021 13:52-0400 Body temperature 96.9 [degF] Dr. Kristal Sullivan Work Phone: [facility] Work Phone: 07-02-2021 13:52-0400 Body weight 95.[address] Kristal Sullivan Work Phone: [facility] Work Phone: 07-02-2021 13:52-0400 Diastolic blood pressure 84 mm[Hg] Dr. Kristal Sullivan Work Phone: [facility] Work Phone: 07-02-2021 13:52-0400 Heart rate 95 /min Dr. Kristal Sullivan Work Phone: [facility] Work Phone: 07-02-2021 13:52-0400 Respiratory rate 18 /min Dr. Kristal Sullivan Work Phone: [facility] Work Phone: 07-02-2021 13:52-0400 SaO2% (BldA) [Mass fraction] 98 % Dr. Kristal Sullivan Work Phone: [facility] Work Phone: 07-02-2021 13:52-0400 Systolic blood pressure 128 mm[Hg] Dr. Kristal Sullivan Work Phone: [facility] Work Phone: 06-04-2021 15:05-0500 Body mass index (BMI) [Ratio] 30 kg/m2 Dr. Kristal Sullivan Work Phone: [facility] Work Phone: 06-04-2021 15:05-0500 Body temperature 97.2 [degF] Dr. Kristal Sullivan Work Phone: [facility] Work Phone: 06-04-2021 15:05-0500 Body weight 97.[address] Kristal Sullivan Work Phone: [facility] Work Phone: 06-04-2021 15:05-0500 Diastolic blood pressure 90 mm[Hg] Dr. Kristal Sullivan Work Phone: [facility] Work Phone: 06-04-2021 15:05-0500 Heart rate 98 /min Dr. Kristal Sullivan Work Phone: [facility] Work Phone: 06-04-2021 15:05-0500 Respiratory rate 18 /min Dr. Kristal Sullivan Work Phone: [facility] Work Phone: 06-04-2021 15:05-0500 SaO2% (BldA) [Mass fraction] 97 % Dr. Kristal Sullivan Work Phone: [facility] Work Phone: 06-04-2021 15:05-0500 Systolic blood pressure 140 mm[Hg] Dr. Kristal Sullivan Work Phone: [facility] Work Phone: Encounters Encounter Date Encounter Type Care Provider Facility Start: 11-02-2024 ambulatory [place] Facility :[facility] Start: 10-14-2024 End: 10-14-2024 ambulatory [facility] Comment on above: Pre-transplant evalu ation for kidney transplant (Primary Dx) Start: 10-14-2024 End: 10-14-2024 Patient encounter status Waitlist Education Work Phone: [facility] Start: 10-14-2024 End: 10-14-2024 Telemedicine consultation with patient Waitlist Group Education Work Phone: [facility] Start: 10-06-2024 End: 10-06-2024 Telephone encounter [facility] Work Phone: [facility] Center Comment on above: Appointments Reminde r Start: 09-29-2024 ambulatory Kristal Sullivan Facility:[facility] Start: 09-22-2024 End: 09-23-2024 ambulatory Kristal Sullivan MD Work Phone: [facility] [place] Comment on above: Help Start: 09-21-2024 End: 09-21-2024 ambulatory [facility] Facility:[facility] Start: 09-21-2024 Encounter for other preprocedural examination KRISTAL SULLIVAN [facility] Start: 09-21-2024 Encounter for preprocedural cardiovascular examination KRISTAL SULLIVAN [facility] Start: 09-21-2024 End: 09-21-2024 Office outpatient visit 25 minutes Kristal Sullivan MD Work Phone: [facility] [place] Comment on above: Complication associa sharan with dialysis catheter (Primary Dx); Type 1 diabetes mellitus with hyperosmolarity without coma (HCC); Essential hypertension; Mixed hyperlipidemia; Esophageal stricture; Anemia in stage 5 chronic kidney disease, not on chronic dialysis (HCC); Chronic kidney disease, stage 5 (HCC); Dependence on renal dialysis; Screening for depression; Encounter for screening examination for other mental health and behavioral disorders; Encounter for immunization Start: 09-21-2024 End: 09-21-2024 ambulatory KRISTAL SULLIVAN Facility:[facility] Start: 09-16-2024 End: 09-16-[address] Kristal Sullivan MD Work Phone: [facility] Work Phone: Start: 09-16-2024 End: 09-16-2024 Patient encounter procedure Kalina CASTELLON -Radiology [facility] Work Phone: Start: 09-16-2024 End: 09-16-2024 ambulatory Kalina Payne Facility:[facility] Start: 09-13-2024 End: 09-13-2024 Chart abstracting Martha Cheatham [facility] Trans[facility] Comment on above: ED/RECENT ADMIT FOLL OW UP Start: 09-07-2024 End: 09-07-2024 Patient encounter procedure Kalina CASTELLON -[facility] Work Phone: Start: 09-07-2024 End: 09-07-[address] Kristal Sullivan MD Work Phone: [facility] Work Phone: Start: 08-31-2024 End: 08-31-2024 Patient encounter procedure Lorraine CASTELLON -[facility] Work Phone: Start: 08-31-2024 End: 08-31-[address] Kristal Sullivan MD Work Phone: [facility] Work Phone: Start: 08-31-2024 Non-patient / Non-visit Bao Posaad nd DO -[facility] Start: 08-31-2024 End: 08-31-2024 Admission to same day surgery center Bao Angulo DO -Endoscopy Work Phone: Start: 08-31-2024 End: 08-31-[address] Kristal Sullivan MD Work Phone: [facility] Work Phone: Start: 08-24-2024 ambulatory Kristal Sullivan Facility:[facility] Start: 08-23-2024 End: 08-28-2024 Evaluation and management of inpatient Ervin Mejia MD Work Phone: [facility] Progressive [facility] PCU 4W Comment on above: History of myocardia l infarction (Primary Dx); Vitreous floaters, unspecified laterality Start: 08-23-2024 End: 08-23-2024 Emergency department patient visit Dr. Kristal Sullivan MD Work Phone: -Emergency Department Work Phone: Start: 08-19-2024 Non-patient / Non-visit Dr. Garrison comer MD -[facility] Start: 08-19-2024 End: 08-19-[address] Kristal Sullivan MD Work Phone: [facility] Work Phone: Start: 08-19-2024 End: 08-19-2024 Patient encounter procedure Thalia CASTREJON -Cardiovascular Services Work Phone: Start: 08-19-2024 End: 08-19-2024 ambulatory Thalia Lea Facility:[facility] Start: 08-17-2024 End: 08-17-2024 Patient encounter procedure Kalina CASTELLON -[facility] Work Phone: Start: 08-17-2024 End: 08-17-[address] Kristal Sullivan MD Work Phone: [facility] Work Phone: Start: 08-11-2024 Non-patient / Non-visit Dr. Louis Koehler MD -[facility] Work Phone: Start: 08-11-2024 Non-patient / Non-visit Dr. Shannan LACEY -[facility] Start: 08-10-2024 End: 08-11-2024 Evaluation and management of inpatient Dr. Eugenia London DO -Progressive Care Unit Work Phone: Start: 08-10-2024 End: 08-11-[address] Kristal Sullivan MD Work Phone: [facility] Work Phone: Start: 08-10-2024 End: 08-12-2024 Refill Kristal Sullivan MD Work Phone: [facility] [place] Start: 08-05-2024 End: 08-05-2024 Patient encounter procedure Thalia Lea PA -[facility] Work Phone: Start: 08-05-2024 End: 08-05-2024 ambulatory Thalia Lea Facility:[facility] Start: 07-28-2024 End: 07-28-2024 Patient encounter procedure Kendra Pierce OCCUPATIONAL THERAPY INSTRUCTOR-C -[facility] Work Phone: Start: 07-28-2024 End: 07-28-2024 ambulatory Kristal Sullivan Facility:[facility] Start: 07-20-2024 ambulatory Garrison Valadez Facility:[facility] Start: 07-20-2024 Non-patient / Non-visit Dr. Garrison comer MD -[facility] Start: 07-20-2024 End: 07-20-2024 Admission to same day surgery center Dr. Garrison Valadez MD -[facility] Start: 07-20-2024 End: 07-20-[address] Kristal Sullivan MD Work Phone: [facility] Work Phone: Start: 07-14-2024 End: 07-14-2024 Chart abstracting Roro Pollard RN Transplant Center Comment on above: abo verification listed phone call Start: 07-07-2024 ambulatory Garrison Valadez Facility:[facility] Start: 07-07-2024 Non-patient / Non-visit Dr. Garrison comer MD -[facility] Start: 07-07-2024 End: 07-07-2024 Admission to same day surgery center Dr. Garrison Valadez MD -[facility] Work Phone: Start: 07-07-2024 End: 07-07-2024 ambulatory No Primary Care Physician [facility] Work Phone: Start: 06-24-2024 End: 06-24-2024 ambulatory DUSTIN BEARD Facility:[facility] Start: 06-23-2024 End: 06-23-2024 Chart abstracting Roro Pollard RN Transplant Center Comment on above: approval note Start: 06-18-2024 End: 06-23-2024 Telephone encounter Kristal Sullivan MD Work Phone: [facility] [place] Comment on above: Forms (BMV Request f or Statement of Physician) Start: 06-18-2024 End: 06-18-2024 Patient encounter procedure Thalia CASTREJON -[facility] Work Phone: Start: 06-18-2024 End: 06-18-2024 ambulatory Thalia Lea Facility:[facility] Start: 06-17-2024 End: 08-17-2024 Follow-up encounter Kristal Sullivan MD Work Phone: Geriatrics Start: 06-15-2024 End: 06-15-2024 ambulatory KRISTAL SULLIVAN Facility:[facility] Start: 06-15-2024 End: 06-15-2024 Patient encounter procedure Kristal Sullivan MD Work Phone: [facility] Work Phone: Start: 06-15-2024 End: 06-15-2024 Periodic preventive med est patient 40-64yrs Kristal Sullivan MD Work Phone: [facility] [place] Comment on above: Annual physical exam (Primary Dx); Obstructive sleep apnea (adult) (pediatric); Essential (primary) hypertension; 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 (HCC); Pruritus; 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 Garrison comer MD -[facility] Start: 06-10-2024 End: 06-10-2024 ambulatory No Primary Care Physician [facility] Work Phone: Start: 06-10-2024 End: 06-10-2024 Patient encounter procedure Thalia CASTREJON -Cardiovascular Services Work Phone: Start: 06-10-2024 End: 06-10-2024 ambulatory Thalia Lea Facility:[facility] Start: 06-04-2024 End: 06-04-2024 Chart abstracting Rukhsana Hernandez [facility] Work Phone: [facility] Start: 06-03-2024 End: 06-03-2024 Social Work Ciarra ANDERSON Work Phone: Transplant Center Start: 05-31-2024 End: 06-23-2024 ambulatory Roro Pollard RN Transplant Center Comment on above: evaluation Start: 05-31-2024 End: 06-23-2024 E-mail encounter from caregiver Roro Pollard RN Trans[facility] Start: 05-25-2024 End: 05-25-2024 Telephone encounter Ciarra ANDERSON Work Phone: Transplant Center Comment on above: Follow Up Start: 05-21-2024 End: 05-28-2024 ambulatory Kristal Sullivan MD Work Phone: [facility] [place] Comment on above: Diabetes Start: 04-29-2024 End: 04-29-2024 Telephone encounter Ciarra ANDERSON Work Phone: Transplant Center Comment on above: Follow Up Start: 04-23-2024 End: 04-23-2024 Patient encounter procedure Thalia CASTREJON -[facility] Work Phone: Start: 04-23-2024 End: 04-23-2024 ambulatory Thalia Lea Facility:[facility] Start: 04-22-2024 ambulatory Virgen CASTREJON Facility:[facility] Start: 04-20-2024 End: 04-20-2024 Emergency department patient visit Dr. Kristi Murillo DO -Emergency Department Work Phone: Start: 04-12-2024 End: 04-12-2024 Nursing evaluation of patient and report Nurse Card Admin [facility] Work Phone: Cardiology Comment on above: Encounter for other preprocedural examination Start: 04-12-2024 End: 04-12-2024 Patient encounter status Nurse Card Admin [facility] Work Phone: [facility] Start: 04-12-2024 End: 04-12-2024 ambulatory RONEN D POGGIO Facility:[facility] Start: 04-12-2024 End: 04-12-2024 ambulatory RONEN D GGIO Facility:[facility] Start: 04-12-2024 Encounter for other preprocedural examination KRISTAL SULLIVAN [facility] Start: 04-12-2024 End: 04-12-2024 Patient encounter status Injection Wstr Work Phone: [facility] Start: 04-12-2024 End: 04-12-2024 Subsequent hospital visit by physician Injection Nm [facility] Work Phone: Nuclear Medicine Comment on above: Encounter for other preprocedural examination [Z01.818] Start: 04-08-2024 ambulatory Garrison Valadez Facility:[facility] Start: 04-07-2024 End: 04-07-2024 ambulatory Nurse [facility] Work Phone: Cardiology Comment on above: Your upcoming stress test Start: 04-07-2024 End: 04-07-2024 E-mail encounter from caregiver Nurse [facility] Work Phone: Cardiology Start: 03-16-2024 ambulatory Virgen blevins PA Facility:[facility] Start: 03-16-2024 Non-patient / Non-visit Dr. Garrison comer MD -[facility] Start: 03-16-2024 End: 03-16-[address] Daisy Diaz MD -Cardiovascular Services Work Phone: Start: 03-16-2024 End: 03-16-2024 ambulatory Virgen CASTREJON Facility:[facility] Start: 02-25-2024 End: 02-25-2024 Patient encounter procedure Kendra CASTELLON -[facility] Work Phone: Start: 02-25-2024 End: 02-25-2024 ambulatory No Primary Care Physician Facility:[facility] Start: 02-25-2024 End: 02-25-2024 Patient encounter procedure Virgen CASTREJON -[facility] Work Phone: Start: 02-25-2024 End: 02-25-2024 ambulatory Virgen CASTREJON Facility:[facility] Start: 02-16-2024 ambulatory No Primary Car e Physician Facility:[facility] Start: 02-06-2024 End: 02-10-2024 Telephone encounter [facility]ordinators Work Phone: Transplant Center Comment on above: Patient Update Start: 01-30-2024 End: 01-30-2024 ambulatory No Primary Care Physician Facility:[facility] Start: 01-28-2024 ambulatory No Primary Car e Physician Facility:[facility] Start: 01-26-2024 ambulatory Hussein Efren Facility:[facility] Start: 01-23-2024 ambulatory Venkata Vargas Facili ty:[facility] Start: 01-23-2024 End: 01-31-2024 Evaluation and management of inpatient Venkata Vargas Facility:[facility] Start: 12-20-2023 End: 12-20-2023 ambulatory NONE PHYSICIAN Facility:[facility] Start: 12-20-2023 End: 12-20-2023 Patient encounter procedure PHY WO ID REFERRING [facility] Start: 11-10-2023 ambulatory Nurse Card Adm in [facility] Work Phone: Cardiology Comment on above: Stress Test Instruct ions for 11/17/23 Start: 11-10-2023 E-mail encounter fro m caregiver Nurse Card Admin [facility] Work Phone: Cardiology Start: 09-01-2023 Chart abstracting Roro Pollard RN (Txp) Transplant Center Comment on above: Clinical Update Start: 08-28-2023 End: 08-28-[address] Work Phone: Preventive Cardiology Start: 08-28-2023 End: 08-28-2023 Nutrition therapy Virgen Stroud RD Work Phone: Preventive Cardiology Comment on above: Nutrition Assessment ; Patient Education Start: 08-28-2023 End: 08-28-2023 Subsequent hospital visit by physician Ct 2 Main Qb (I-Stat) Radiology Comment on above: Chronic renal failur e, stage 4 (severe) (HCC) [N18.4] Start: 08-28-2023 End: 08-28-2023 Patient encounter procedure Pre Tx Group Education Work Phone: Transplant Center Comment on above: Pre-transplant evalu ation for kidney and pancreas transplant (Primary Dx) Pre-transplant evalu ation for kidney transplant (Primary Dx) Encounter for other preprocedural examination (Primary Dx); CKD (chronic kidney disease) stage 5, GFR less than 15 ml/min (HCC); Pre-transplant evaluation for CKD (chronic kidney disease); 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) Arrived ESRD on dialysis (HC C) (Primary Dx); 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) Start: 08-28-2023 End: 08-28-2023 Patient encounter status Kidney Txp Coordinators Work Phone: [facility] Start: 08-21-2023 Telephone encounter Floyd Wagner RN Transplant Center Comment on above: Missed Appointment Start: 08-14-2023 Telephone encounter [facility] Coordinators Work Phone: Transplant Center Comment on above: Appointment Start: 08-01-2023 Non-patient / Non-visit Dr. Eddie Sullivan Work Phone: [facility] Start: 08-01-2023 End: 08-01-2023 Admission to same day surgery center Dr. Kristal Sullivan Work Phone: [facility]-Surgical Day Care Start: 08-01-2023 End: 08-01-[address] Kristal Sullivan Work Phone: [facility] Work Phone: Start: 07-31-2023 Non-patient / Non-visit Dr. Eddie Sullivan Work Phone: [facility] Start: 07-31-2023 End: 07-31-[address] Kristal Sullivan Work Phone: [facility] Work Phone: Start: 07-31-2023 End: 07-31-[address] Kristal Sullivan Work Phone: [facility]-Cardiovascular Services Work Phone: Start: 07-31-2023 Chart abstracting Cecilia Pena [facility] Comment on above: Pre-transplant evalu ation for kidney and pancreas transplant (Primary Dx); Chronic renal failure, stage 4 (severe) (HCC) Pre-transplant evalu ation for kidney transplant (Primary Dx) Start: 07-31-2023 Patient encounter status Dori Chung PA-C Work Phone: [facility] Start: 07-30-[address] Reji Sullivan Work Phone: [facility] Start: 07-30-2023 End: 07-30-[address] Kristal Sullivan Work Phone: [facility] Work Phone: Start: 07-29-2023 Telephone encounter Concha Munoz Trans[facility] Comment on above: Referral - Kidney Tx p Start: 07-23-2023 End: 07-23-[address] Kristal Sullivan Work Phone: [facility] Work Phone: Start: 07-23-2023 End: 07-23-[address] Kristal Sullivan Work Phone: [facility]-Laboratory Work Phone: Start: 07-03-2023 Non-patient / Non-visit Dr. Eddie Sullivan Work Phone: [facility] Work Phone: Start: 07-02-2023 Non-patient / Non-visit Dr. Eddie Sullivan Work Phone: [facility] Work Phone: Start: 07-02-2023 Non-patient / Non-visit Dr. Eddie Sullivan Work Phone: [facility] Start: 07-01-2023 Non-patient / Non-visit Dr. Eddie Sullivan Work Phone: [facility] Work Phone: Start: 07-01-2023 End: 07-03-2023 Evaluation and management of inpatient Dr. Kristal Sullivan Work Phone: [facility]-Intensive Care Unit Work Phone: Start: 06-27-2023 End: 06-27-[address] Kristal Sullivan Work Phone: [facility] Work Phone: Start: 06-27-2023 End: 06-27-[address] Kristal Sullivan Work Phone: [facility]-Laboratory Work Phone: Start: 05-16-2023 End: 05-16-[address] Kristal Sullivan Work Phone: [facility] Work Phone: Start: 05-16-2023 End: 05-16-[address] Kristal Sullivan Work Phone: [facility]-Laboratory Work Phone: Start: 05-14-2023 End: 05-14-[address] Kristal Sulliavn Work Phone: [facility] Endocr[facility] Work Phone: Start: 04-07-2023 End: 04-07-2023 Emergency department patient visit Dr. Kristal Sullivan Work Phone: [facility]-Emergency Department Work Phone: Start: 07-02-2022 End: 07-02-2022 Office outpatient visit 25 minutes Yas Murray APRN.CNS Work Phone: [facility] [place] Comment on above: Class 1 obesity with serious comorbidity in adult, unspecified BMI, unspecified obesity type (Primary Dx); Type 1 diabetes mellitus with other specified complication (HCC); Low blood sugar Start: 05-31-2022 End: 05-31-2022 Patient encounter procedure Kristal Sullivan MD Work Phone: [facility] [place] Comment on above: Class 1 obesity with serious comorbidity in adult, unspecified BMI, unspecified obesity type (Primary Dx); Special screening examination for viral disease; Screening for HIV (human immunodeficiency virus); Essential hypertension Start: 05-07-2022 ambulatory Kristal Ricketts Work Phone: Internal Medicine [facility] Start: 04-30-2022 Telephone encounter Kristal vance MD Work Phone: Internal [facility] [place] Comment on above: Results Start: 04-26-2022 Telephone encounter Kristal vacne MD Work Phone: [facility] [place] Comment on above: Patient Question Start: 04-26-2022 End: 04-26-2022 Patient encounter procedure Kristal Sullivan MD Work Phone: [facility] [place] Comment on above: Type 1 diabetes jeanine itus with hyperosmolarity without coma (HCC) (Primary Dx); Gastroesophageal reflux disease without esophagitis; Essential hypertension; Class 1 obesity with serious comorbidity in adult, unspecified BMI, unspecified obesity type Start: 11-02-2021 End: 11-02-2021 Emergency department patient visit Dr. Kristal Sullivan Work Phone: [facility]-Emergency Department Start: 10-08-2021 End: 10-08-[address] Kristal Sullivan Work Phone: [facility]ocr[facility] Start: 09-04-2021 Orders Only Kristal Ricketts Work Phone: [facility] [place] Start: 08-30-2021 Orders Only Kristal Ricketts Work Phone: [facility] [place] Start: 07-02-2021 End: 07-02-[address] Kristal Sullivan Work Phone: [facility]-Laboratory, [facility] Start: 07-02-2021 End: 07-02-[address] Kristal Sullivan Work Phone: [facility] Start: 06-04-2021 End: 06-04-[address] Kristal Sullivan Work Phone: [facility] Endocrinology Start: 02-04-2020 End: 02-04-2020 Subsequent hospital visit by physician Xr [facility] Work Phone: Radiology Comment on above: Pain and swelling of toe of right foot [M79.674, M79.89] Procedures Date Procedure Procedure Detail Performing Clinician Start: 09-21-2024 Hemoglobin A1c/Hemoglobin.total in Blood Kristal Sullivan MD Work Phone: Start: 09-21-2024 Adult depression screening assessment Kristal Sullivan MD Work Phone: Start: 09-16-2024 X-ray of esophagus with double contrast Dr. Kristal Sullivan MD Work Phone: Start: 08-31-[address] Kristal walls MD Work Phone: Start: 08-28-2024 Glucose quantitative blood xcpt reagent strip Maria Luz Trujillo MD Work Phone: Start: 08-28-2024 Glucose quantitative blood xcpt reagent strip Maria Luz Trujillo MD Work Phone: Start: 08-28-2024 Comprehensive metabolic panel Juani mejia MD Work Phone: Start: 08-27-2024 Glucose quantitative blood xcpt reagent strip Maria Luz Trujillo MD Work Phone: Start: 08-27-2024 Glucose quantitative blood xcpt reagent strip Maria Luz Trujillo MD Work Phone: Start: 08-27-2024 Glucose quantitative blood xcpt reagent strip Maria Luz Trujillo MD Work Phone: Start: 08-27-2024 Glucose quantitative blood xcpt reagent strip Maria Luz Trujillo MD Work Phone: Start: 08-27-2024 Comprehensive metabolic panel Juani mejia MD Work Phone: Start: 08-26-2024 Glucose quantitative blood xcpt reagent strip Maria Luz Trujillo MD Work Phone: Start: 08-26-2024 Glucose quantitative blood xcpt reagent strip Maria Luz Trujillo MD Work Phone: Start: 08-26-2024 Glucose quantitative blood xcpt reagent strip Maria Luz Trujillo MD Work Phone: Start: 08-26-2024 Glucose quantitative blood xcpt reagent strip Maria Luz Trujillo MD Work Phone: Start: 08-26-2024 Comprehensive metabolic panel Juani mejia MD Work Phone: Start: 08-26-2024 Hepatic function panel Ricardo Mcnair DO Work Phone: Start: 08-25-2024 Glucose quantitative blood xcpt reagent strip Maria Luz Trujillo MD Work Phone: Start: 08-25-2024 Glucose quantitative blood xcpt reagent strip Maria Luz Trujillo MD Work Phone: Start: 08-25-2024 Glucose quantitative blood xcpt reagent strip Maria Luz Trujillo MD Work Phone: Start: 08-25-2024 Inf agent det nucleic acid clostridium amp probe Ricardo Mcnair DO Work Phone: Start: 08-25-2024 Echo tthrc r-t 2d w/wom-mode compl spec&colr d Brayan Luz Marina DO Work Phone: Start: 08-25-2024 Glucose quantitative blood xcpt reagent strip Maria Luz Trujillo MD Work Phone: Start: 08-25-2024 Glucose quantitative blood xcpt reagent strip Maria Luz Trujillo MD Work Phone: Start: 08-25-2024 Bacteria identified in Blood by Culture Kwesi Munson MD Work Phone: Start: 08-25-2024 Comprehensive metabolic panel Juani mejia MD Work Phone: Start: 08-24-2024 Glucose quantitative blood xcpt reagent strip Maria Luz Trujillo MD Work Phone: Start: 08-24-2024 Glucose quantitative blood xcpt reagent strip Maria Luz Trujillo MD Work Phone: Start: 08-24-2024 Glucose quantitative blood xcpt reagent strip Maria Luz Trujillo MD Work Phone: Start: 08-24-2024 RF Guidance for removal of tunneled CV catheter Josue Phelan DO Work Phone: Start: 08-24-2024 Comprehensive metabolic panel Juani mejia MD Work Phone: Start: 08-24-2024 End: 08-24-2024 Smr prim src gram/giemsa stain bct fungi/cell Brayan Barros DO Work Phone: Start: 08-24-2024 Drug tst prsmv instrmnt chem analyzers pr date Brayan Barros DO Work Phone: Start: 08-24-2024 LEGIONELLA AND STREPTOCOCCUS URINE ANTIGEN, ORDERABLE Brayan Barros DO Work Phone: Start: 08-24-2024 URINE HOLD CUP Brayan Barros DO Work Phone: Start: 08-23-2024 Respiratory pathogens DNA and RNA panel - Nasopharynx by LAVERN with non-probe detection Brayan Barros DO Work Phone: Start: 08-23-2024 Ct abdomen & pelvis w/contrast material Brayan Barros DO Work Phone: Start: 08-23-2024 Ecg routine ecg w/least 12 lds trcg only w/o i&r Palvir Arpit LACEY Work Phone: Start: 08-23-[address] Kristal Sullivan MD Work Phone: Start: 08-23-2024 Identification procedure for living organism Dr. Kristal Sullivan MD Work Phone: Start: 08-23-2024 SARS-CoV-2, Influenza & RSV (PCR) Dr. Eddie Sullivan MD Work Phone: Start: 08-23-[address] Kristal Sullivan MD Work Phone: Start: 08-23-2024 Radiologic exam chest single view Brayan sheldon DO Work Phone: Start: 08-23-2024 BLOOD CULTURE IDENTIFICATION - AEROBIC Brayan Barros DO Work Phone: Start: 08-23-2024 End: 08-23-2024 Bacteria identified in Blood by Culture Brayan Barros DO Work Phone: Start: 08-23-2024 C-reactive protein Brayan Barros DO Work Phone: Start: 08-23-2024 End: 08-23-2024 Comprehensive metabolic panel Brayan Barros DO Work Phone: Start: 08-23-2024 Manual Differential panel - Blood Brayan sheldon DO Work Phone: Start: 08-23-2024 Ecg routine ecg w/least 12 lds trcg only w/o i&r Brayan Barros DO Work Phone: Start: 08-23-2024 Thyrotropin [Units/volume] in Serum or Plasma Ervin Mejia MD Work Phone: Start: 08-23-2024 Plain chest X-ray Dr. Kristal Sullivan MD Work Phone: Start: 08-23-[address] Ruth Sullivan MD Work Phone: Start: 08-23-2024 Serum inorganic phosphate measurement Dr. Kristal Sullivan MD Work Phone: Start: 08-23-2024 Urnls dip stick/tablet reagent auto microscopy Dr. Kristal Sullivan MD Work Phone: Start: 08-11-2024 Cardiovascular stress test using pharmacologic stress agent Dr. Kristal Sullivan MD Work Phone: Start: 08-11-[address] Ruth Sullivan MD Work Phone: Start: 08-11-2024 Serum inorganic phosphate measurement Dr. Kristal Sullivan MD Work Phone: Start: 08-10-2024 CT angiography of chest with contrast Dr. Kristal Sullivan MD Work Phone: Start: 08-10-2024 X-ray of chest, PA and lateral views Dr. Kristal Sullivan MD Work Phone: Start: 08-10-[address] Ruth Sullivan MD Work Phone: Start: 07-20-2024 Repair of arteriovenous fistula by suture Dr. Kristal Sullivan MD Work Phone: Start: 07-07-[address] Ruth Sullivan MD Work Phone: Start: 04-12-2024 Myocardial spect multiple studies Ronen Eldridge MD Work Phone: Start: 08-28-2023 Ct abdomen & pelvis w/o contrast material Kim Chung PA-C Work Phone: Start: 08-01-2023 Creation of lower limb arteriovenous fistula Dr. Kristal Sullivan Work Phone: Start: 07-02-[address] Kristal Sullivan Work Phone: Start: 07-01-2023 Plain chest X-ray Dr. Kristal Sullivan Work Phone: Start: 04-07-2023 X-ray of both feet Dr. Kristal Sullivan Work Phone: Start: 04-26-2022 Hemoglobin A1c/Hemoglobin.total in Blood Kristal Sullivan MD Work Phone: Start: 11-02-2021 CT of head without contrast Dr. Kristal joseph Work Phone: Start: 11-02-2021 CT of lumbar spine Dr. Kristal Sullivan Work Phone: Start: 02-04-2020 Radex foot complete minimum 3 views Kristal Sullivan MD Work Phone: Start: 11-20-2018 Adult depression screening assessment Kristal Sullivan MD Work Phone: History of placement of stent for coronary artery disease History of coronary artery stent placement No Primary Care Physician Comment on above: PCI and PAXTON placed to mid LAD 01/23/24 History of placement of stent for coronary artery disease History of coronary artery stent placement Virgen CASTREJON History of placement of stent for coronary artery disease History of coronary artery stent placement Lorraine Browne OCCUPATIONAL THERAPY INSTRUCTORJosé MiguelC Plan of Treatment Date Care Activity Detail Author Start: 2057 RSV Immunization for Adults (1 - 1-dose 75+ series) RSV Immunization for Adults (1 - 1-dose 75+ series) [facility] Start: 2032 Zoster Vaccines (1 of 2) Zoster Vaccines (1 of 2) [facility] Start: 09-21-2025 Annual PCP Team Chronic Disease Visit Annual PCP Team Chronic Disease Visit [facility] Start: 09-21-2025 Anxiety Screening Anxiety Screening [facility] Start: 09-21-2025 Depression Screening Depression Screening [facility] Start: 08-28-2025 Complete blood count Hemoglobin/Hematocrit [facility] Start: 08-28-2025 Creatinine measurement [facility] Start: 08-28-2025 Potassium measurement Potassium Level [facility] Start: 08-25-2025 Echocardiography Echocardiogram [facility] Start: 08-23-2025 Thyroid stimulating hormone measurement TSH Level [facility] Start: 07-13-2025 Hepatitis B Vaccines (4 of 4 - Risk Dialysis Recombivax 3-dose series) Hepatitis B Vaccines (4 of 4 - Risk Dialysis Recombivax 3-dose series) [facility] Start: 06-15-2025 Annual PCP Team Chronic Disease Visit Annual PCP Team Chronic Disease Visit [facility] Start: 06-15-2025 BP Controlled (<130/80) BP Controlled (<130/80) [facility] Start: 06-15-2025 Complete blood count Hemoglobin/Hematocrit [facility] Start: 06-15-2025 Creatinine measurement Serum Creatinine [facility] Start: 06-15-2025 Hemoglobin A1c measurement Diabetes: Hemoglobin A1C [facility] Start: 06-15-2025 Hepatitis B surface antibody level LDL Cholesterol [facility] Start: 03-23-2025 Hemoglobin A1c measurement HbA1C [facility] Start: 12-21-2024 End: 12-21-2024 Patient encounter procedure 12/21/2024 1:40 PM EDT Office Visit [facility] [place] [address] [place] [address] Kristal Sullivan MD [address] [place] [address] 3 Month F/U [facility] [place] Comment on above: 3 Month F/U Start: 11-29-2024 Influenza vaccination [facility] Start: 10-26-2024 End: 10-26-2024 ambulatory 10/26/2024 3:45 PM EDT Procedure Cardiology [address] [place] [address] Organ transplant candidate [Z76.82] Cardiology Comment on above: Organ transplant candidate [Z76.82] Start: 10-26-2024 End: 10-26-2024 Patient encounter procedure 10/26/2024 3:35 PM EDT Appointment Radiology [address] [place], [place] [id number] Organ transplant candidate [Z76.82] Radiology Comment on above: Organ transplant candidate [Z76.82] Start: 10-26-2024 End: 10-26-2024 Patient encounter procedure 10/26/2024 2:30 PM EDT Office Visit Transplant Center [address] [address] Organ transplant candidate [Z76.82] Transplant Center Comment on above: Organ transplant candidate [Z76.82] Start: 10-26-2024 End: 10-26-2024 Social Work Transplant Center Comment on above: Organ transplant candidate [Z76.82] Start: 10-14-2024 End: 10-14-2024 ambulatory 10/14/2024 9:30 AM EDT [facility] [place] [address] [id number] Organ transplant candidate [Z76.82] Transplant Center Comment on above: Organ transplant candidate [Z76.82] Start: 09-21-2024 End: 09-21-2024 Patient encounter procedure 09/21/2024 11:40 AM EDT Office Visit Internal [facility] [place] [address] [place] [address] Kristal Sullivan MD [address] [place] [address] 3 month follow u [facility] [place] Comment on above: 3 month follow u Start: 09-15-2024 Hemoglobin A1c measurement HbA1C [facility] Start: 08-31-2024 Egd insert guide wire dilator passage esophagus EGD GUIDE WIRE INSERTION [facility] Start: 08-31-2024 Egd transoral biopsy single/multiple EGD BIOPSY SINGLE/MULTIPLE [facility] Start: 08-31-2024 Patient discharge [facility] Start: 08-27-2024 Complete blood count Hemoglobin/Hematocrit [facility] Start: 08-27-2024 Creatinine measurement Serum Creatinine [facility] Start: 08-23-2024 Bacteria identified in Blood by Culture Blood Culture [facility] Start: 08-23-2024 Bacteria identified in Urine by Culture Urine Culture [facility] Start: 08-23-2024 Blood culture Blood Culture [facility] Start: 08-23-2024 [facility] Start: 08-23-2024 End: 08-23-2024 [facility] Start: 08-11-2024 Patient discharge [facility] Start: 08-11-2024 Care of hemodialysis equipment [facility] Start: 08-11-2024 Hemodialysis care [facility] Start: 08-11-2024 [facility] Start: 08-11-2024 Following clinical pathway protocol [facility] Start: 08-11-2024 Ambulation without limitation [facility] Start: 08-11-2024 Assessment of risk of venous thromboembolism [facility] Start: 08-11-2024 Catheterization of vein [facility] Start: 08-11-2024 Inhalation therapy procedure [facility] Start: 08-11-2024 Insertion of catheter into peripheral vein [facility] Start: 08-11-2024 Measuring intake and output [facility] Start: 08-11-2024 Oxygen therapy [facility] Start: 08-11-2024 Patient referral to dietitian [facility] Start: 08-11-2024 Providing care according to standard [facility] Start: 08-11-2024 Referral to house designer [facility] Start: 08-11-2024 Referral to service [facility] Start: 08-11-2024 Tobacco use cessation education [facility] Start: 08-10-2024 End: 08-11-2024 [facility] Start: 08-10-2024 Triacylglycerol lipase measurement [facility] Start: 08-10-2024 Electrocardiographic procedure [facility] Start: 08-10-2024 Verification routine [facility] Start: 08-10-2024 Admission procedure [facility] Start: 08-10-2024 Hospital admission, emergency, from emergency room, medical nature [facility] Start: 08-10-2024 [facility] Start: 07-20-2024 Patient discharge [facility] Start: 07-20-2024 Anesthesia arteries forearm wrist & hand nos ANESTH LWR ARM ARTERY SURG [facility] Start: 07-20-2024 Lig/banding angioaccess arteriovenous fistula LIG/BANDING ANGIOACS AV FSTL [facility] Start: 07-07-2024 Patient discharge [facility] Start: 06-15-2024 End: 06-15-2024 Patient encounter procedure 06/15/2024 1:00 PM EDT Office Visit Internal Medicine [place] [address] [place] [address] Kristal Sullivan MD [address] [place] [address] physical [facility] [place] Comment on above: physical Start: 04-12-2024 End: 04-12-2024 Nursing evaluation of patient and report 04/12/2024 9:45 AM EST Nurse Visit Cardiology [address] [place] [address] Wstr, Nurse Card Admin [facility] [address] [place] [address] Encounter for other preprocedural examination [Z01.818 Cardiology Comment on above: Encounter for other preprocedural examin ation [Z01.818 Start: 04-12-2024 End: 04-12-2024 Nursing evaluation of patient and report 04/12/2024 8:15 AM EST Nurse Visit Cardiology [address] [place] [id number] Wstr, Nurse Card Admin [facility] [address] [place] [address] Encounter for other preprocedural examination [Z01.818] Cardiology Comment on above: Encounter for other preprocedural examin ation [Z01.818] Start: 04-12-2024 End: 04-12-2024 Patient encounter procedure [facility] Comment on above: Encounter for other preprocedural examin ation [Z01.818] Encounter for other preprocedural examination [Z01.818 Start: 11-30-2023 Covid-19 Vaccine ( season) Covid-19 Vaccine () [facility] Start: 11-30-2023 Influenza vaccination [facility] Start: 11-28-2023 Hemoglobin A1c measurement HbA1C [facility] Start: 11-17-2023 End: 11-17-2023 Nursing evaluation of patient and report 11/17/2023 9:15 AM EDT Nurse Visit Cardiology [address] [place] [phone] Wstr, Nurse Card Admin [facility] [address] [place] [id number] Encounter for other preprocedural examination [Z01.8 Cardiology Comment on above: Encounter for other preprocedural examin ation [Z01.8 Start: 11-17-2023 End: 11-17-2023 Patient encounter procedure [facility] Comment on above: Encounter for other preprocedural examin ation [Z01.8 Start: 08-28-2023 End: 08-28-2023 ambulatory 08/28/2023 4:45 PM EDT Results Only [facility] [address] [place] [address] K/P EVAL FAST TRAK [facility] Comment on above: K/P EVAL FAST TRAK Start: 08-28-2023 End: 08-28-2023 Patient encounter procedure Transplant C enter Comment on above: K/P EVAL FAST TRAK Start: 08-28-2023 End: 08-28-2023 ambulatory 08/28/2023 2:30 PM EDT Education [facility] [address] [place] [address] Virgen Stroud, RD [address] [place] [address] K/P EVAL FAST TRAK [facility] Comment on above: K/P EVAL FAST TRAK Start: 08-28-2023 End: 08-28-2023 Patient encounter procedure Radiology Comment on above: K/P EVAL FAST TRAK Start: 08-28-2023 End: 08-28-2023 Patient encounter procedure Transplant C enter Comment on above: K/P EVAL FAST TRAK Start: 08-21-2023 End: 08-21-2023 ambulatory 08/21/2023 8:00 AM EDT [facility] [address] [address] K/P EVAL FAST TRAK Transplant Center Comment on above: K/P EVAL FAST TRAK Start: 08-07-2023 End: 08-29-2024 CT Abdomen and Pelvis WO contrast CT ABD/PEL WO IVCON Radiology Routine Chronic renal failure, stage 4 (severe) (HCC) Pre-transplant evaluation for kidney and pancreas transplant Expected: 08/07/2023, Expires: 08/29/2024 [facility] Work Phone: Comment on above: Expected: 08/07/2023, Expires: Start: 08-01-2023 Patient discharge [facility] Start: 07-04-2023 Blood chemistry [facility] Start: 07-03-2023 Patient discharge [facility] Start: 07-03-2023 Blood chemistry [facility] Start: 07-01-2023 Following clinical pathway protocol [facility] Start: 07-01-2023 Ambulation without limitation [facility] Start: 07-01-2023 Application of elastic bandage [facility] Start: 07-01-2023 Assessment of risk of venous thromboembolism [facility] Start: 07-01-2023 Elevation of affected extremity [facility] Start: 07-01-2023 Incentive spirometry [facility] Start: 07-01-2023 Insertion of catheter into peripheral vein [facility] Start: 07-01-2023 Measuring intake and output [facility] Start: 07-01-2023 Notification of physician [facility] Start: 07-01-2023 Oxygen therapy [facility] Start: 07-01-2023 Patient education [facility] Start: 07-01-2023 Providing care according to standard [facility] Start: 07-01-2023 Referral to house designer [facility] Start: 07-01-2023 [facility] Start: 07-01-2023 Urinalysis complete panel - Urine [facility] Start: 07-01-2023 Verification routine [facility] Start: 07-01-2023 Admission procedure [facility] Start: 07-01-2023 Hospital admission, emergency, from emergency room, medical nature [facility] Start: 06-01-2023 ANNUAL PCP TEAM CHRONIC DISEASE VISIT ANNUAL PCP TEAM CHRONIC DISEASE VISIT [facility] Start: 06-01-2023 Hepatitis B screening URINE ALBUMIN:CREATININE RATIO [facility] Start: 06-01-2023 Hepatitis B surface antibody level LDL CHOLESTEROL [facility] Start: 04-26-2023 ANNUAL PCP TEAM CHRONIC DISEASE VISIT ANNUAL PCP TEAM CHRONIC DISEASE VISIT [facility] Start: 03-31-2023 Behavioral Health Screening Behavioral Health Screening [facility] Start: 11-29-2022 Covid-19 Vaccine ( season) Covid-19 Vaccine ( season) [facility] Start: 11-29-2022 Influenza vaccination INFLUENZA (Season Ended) [facility] Start: 10-24-2022 Hemoglobin A1c measurement HbA1C [facility] Start: 10-24-2022 Hemoglobin A1c/Hemoglobin.total in Blood HBA1C [facility] Start: 05-07-2022 End: 07-07-2022 ALBUMIN/CREAT RATIO RND UR ALBUMIN/CREAT RATIO RND UR Lab Routine Type 1 diabetes mellitus with hyperosmolarity without coma (HCC) Expected: 05/07/2022, Expires: 07/07/2022 [facility] Work Phone: Comment on above: Expected: 05/07/2022, Expires: 3 Start: 05-07-2022 End: 07-07-2022 Lipid 1996 panel - Serum or Plasma LIPID PANEL BASIC Lab Routine Mixed hyperlipidemia Expected: 05/07/2022, Expires: 07/07/2022 [facility] Work Phone: Comment on above: Expected: 05/07/2022, Expires: 3 Start: 05-07-2022 End: 07-07-2022 SCHEDULE LAB TESTING SCHEDULE LAB TESTING Lab Routine Expected: 05/07/2022, Expires: 07/07/2022 [facility] Work Phone: Comment on above: Expected: 05/07/2022, Expires: 3 Start: 04-26-2022 End: 06-26-2022 Comprehensive metabolic 2000 panel - Serum or Plasma [facility] Work Phone: Comment on above: Expected: 04/26/2022, Expires: 3 Start: 04-26-2022 End: 06-26-2022 Thyrotropin [Units/volume] in Serum or Plasma [facility] Work Phone: Comment on above: Expected: 04/26/2022, Expires: 3 Start: 03-31-2022 DEPRESSION ASSESSMENT DEPRESSION ASSESSMENT [facility] Start: 03-14-2022 ANNUAL PCP TEAM CHRONIC DISEASE VISIT ANNUAL PCP TEAM CHRONIC DISEASE VISIT [facility] Start: 11-29-2021 Influenza vaccination [facility] Start: 05-12-2021 Hemoglobin A1c/Hemoglobin.total in Blood HBA1C [facility] Start: 02-03-2021 3 comp foot exam completed DIABETIC FOOT EXAM [facility] Start: 02-03-2021 Diabetic foot examination Diabetic Foot Exam [facility] Start: 09-16-2020 Glaucoma screening Dilated Retinal Exam [facility] Start: 09-16-2020 Hepatitis C antibody, confirmatory test DILATED RETINAL EXAM [facility] Start: 04-23-2020 Hepatitis B screening URINE ALBUMIN:CREATININE RATIO [facility] Start: 11-21-2019 Adult depression screening assessment DEPRESSION SCREENING [facility] Start: 07-18-2019 Hepatitis B surface antibody level LDL CHOLESTEROL [facility] Start: 01-02-2019 DTaP/Tdap/Td Vaccines (1 - Tdap) DTaP/Tdap/Td Vaccines (1 - Tdap) [facility] Start: 01-02-2019 Urine microalbumin profile [facility] Start: 07-30-2011 PNEUMOCOCCAL (2 - PCV) PNEUMOCOCCAL (2 - PCV) [facility] Start: 07-30-2011 Pneumococcal vaccination Pneumococcal Vaccine (2 of 2 - PCV) [facility] Start: 07-30-2011 Pneumococcal Vaccine: Pediatrics (0 to 5 Years) and At-Risk Patients (6 to 49 Years) (2 of 2 - PCV) Pneumococcal Vaccine: Pediatrics (0 to 5 Years) and At-Risk Patients (6 to 49 Years) (2 of 2 - PCV) [facility] Start: 2001 Hepatitis A Vaccine (1 of 2 - Risk 2-dose series) Hepatitis A Vaccine (1 of 2 - Risk 2-dose series) [facility] Start: 2001 HEPATITIS B (1 of 3 - Risk 3-dose series) HEPATITIS B (1 of 3 - Risk 3-dose series) [facility] Start: 2001 Hepatitis B Vaccine (1 of 3 - 19+ 3-dose series) Hepatitis B Vaccine (1 of 3 - 19+ 3-dose series) [facility] Start: 2001 Shingrix Vaccine (1 of 2) Shingrix Vaccine (1 of 2) [facility] Start: 2000 Anxiety Screening Anxiety Screening [facility] Start: 2000 BP CONTROLLED (<130/80) BP CONTROLLED (<130/80) [facility] Start: 2000 Depression Screening Depression Screening [facility] Start: 2000 HEPATITIS C SCREENING HEPATITIS C SCREENING [facility] Start: 2000 Hepatitis C screening Hepatitis C Screening [facility] Start: 2000 HIV SCREENING HIV SCREENING [facility] Start: 2000 HIV screening HIV Screening [facility] Start: 08-04-1995 Varicella vaccination Varicella Vaccines (1 of 2 - 13+ 2-dose series) [facility] Start: 1994 Depression Screening Depression Screening [facility] Start: 1992 Diabetic foot examination Diabetes: Foot Exam [facility] Start: 1992 Glaucoma screening Diabetes: Retinopathy Screening [facility] Start: 1992 Preventive dental service Diabetes: Dental Exam [facility] Start: 08-04-1987 COVID-19 VACCINE (#1) COVID-19 VACCINE (#1) [facility] Start: 08-04-1983 MMR Vaccines (1 of 1 - Standard series) MMR Vaccines (1 of 1 - Standard series) [facility] Start: 02-03-1983 COVID-19 VACCINE (#1) COVID-19 VACCINE (#1) [facility] Start: 1982 Cyanocobalamin vitamin b-12 Vitamin B-12 [facility] Start: 1982 Diabetes: Celiac Disease Screening Diabetes: Celiac Disease Screening [facility] Start: 1982 HEPATITIS B (1 of 3 - 3-dose series) HEPATITIS B (1 of 3 - 3-dose series) [facility] Start: 1982 HIV screening HIV Screening [facility] Start: 1982 Lipid panel Lipid Panel [facility] End: 08-28-2023 ALLOGEN SOT REC RPT [facility] Comment on above: ONCE for 1 Occurrences starting 08/28/19 24 until 08/28/2023 Anion gap measurement [facility] Anion gap measurement [facility] Bacteria identified in Blood by Culture [facility] Work Phone: BUN/Creatinine ratio [facility] BUN/Creatinine ratio [facility] Calcium [Mass/volume ] in Serum or Plasma [facility] Calcium [Mass/volume ] in Serum or Plasma [facility] Carbon dioxide, tota l [Moles/volume] in Serum or Plasma [facility] Carbon dioxide, tota l [Moles/volume] in Serum or Plasma [facility] End: 05-28-2025 CBC panel - Blood by Automated count COMPLETE BLOOD COUNT Lab Routine Type 1 diabetes mellitus with other specified complication (HCC) Every 6 months for 12 Occurrences starting 05/28/2024 until 05/28/2025 [facility] Comment on above: Every 6 months for 12 Occurrences starti ng 05/28/2024 until 05/28/2025 Chloride [Moles/volu me] in Serum or Plasma [facility] Chloride [Moles/volu me] in Serum or Plasma [facility] End: 05-28-2025 Comprehensive metabolic 2000 panel - Serum or Plasma COMPREHENSIVE METABOLIC PANEL Lab Routine Type 1 diabetes mellitus with other specified complication (HCC) Every 6 months for 12 Occurrences starting 05/28/2024 until 05/28/2025 [facility] Comment on above: Every 6 months for 12 Occurrences starti ng 05/28/2024 until 05/28/2025 Creatinine [Moles/vo lume] in Serum or Plasma [facility] Creatinine [Moles/vo lume] in Serum or Plasma [facility] Glucose [Mass/volume ] in Serum or Plasma [facility] Glucose [Mass/volume ] in Serum or Plasma [facility] End: 05-28-2025 Hemoglobin A1c in Blood HEMOGLOBIN A1C Lab Routine Type 1 diabetes mellitus with other specified complication (HCC) Every 3 months for 24 Occurrences starting 05/28/2024 until 05/28/2025 [facility] Work Phone: Comment on above: Every 3 months for 24 Occurrences starti ng 05/28/2024 until 05/28/2025 Hemoglobin A1c/Hemoglobin.total in Blood HEMOGLOBIN A1C (POC) Lab Routine Type 1 diabetes mellitus with hyperosmolarity without coma (HCC) Ordered: 04/26/2022 [facility] Work Phone: Comment on above: Ordered: 04/26/2022 End: 05-28-2025 Lipid 1996 panel - Serum or Plasma LIPID PANEL BASIC Lab Routine Type 1 diabetes mellitus with other specified complication (HCC) Every 6 months for 12 Occurrences starting 05/28/2024 until 05/28/2025 [facility] Comment on above: Every 6 months for 12 Occurrences starti ng 05/28/2024 until 05/28/2025 Measurement of renal function [facility] Measurement of renal function [facility] End: 09-26-2024 NM Heart Perfusion W stress and W radionuclide IV NM CARDIAC PERF STRESS/PHARM Radiology Routine Encounter for other preprocedural examination 1 Occurrences starting 08/28/2023 until 09/26/2024 [facility] Work Phone: Comment on above: 1 Occurrences starting 08/28/2023 until 09/26/2024 Patient Education [facility] Work Phone: Patient referral [facility] Work Phone: Potassium [Moles/vol ume] in Serum or Plasma [facility] Potassium [Moles/vol ume] in Serum or Plasma [facility] Radiologic exam esop hagus double contrast study [facility] Sodium [Moles/volume ] in Serum or Plasma [facility] Sodium [Moles/volume ] in Serum or Plasma [facility] End: 05-28-2025 Thyrotropin [Units/volume] in Serum or Plasma THYROID STIMULATING HORMONE Lab Routine Type 1 diabetes mellitus with other specified complication (HCC) Every 3 months for 24 Occurrences starting 05/28/2024 until 05/28/2025 [facility] Comment on above: Every 3 months for 24 Occurrences starti ng 05/28/2024 until 05/28/2025 Troponin T.cardiac [Mass/volume] in Serum or Plasma by High sensitivity method [facility] Urea nitrogen [Mass/ volume] in Serum or Plasma [facility] Urea nitrogen [Mass/ volume] in Serum or Plasma [facility] Urine culture [facility] US AV fistula [facility] Immunizations Immunization Date Immunization Notes Care Provider Nilson sherwood 09-21-2024 pneumococcal conjuga te (PCV20) vaccine, 20 valent (PREVNAR 20) Kristal Sullivan MD Work Phone: [facility] 09-21-2024 pneumococcal Conjuga te, unspecified formulation Kristal Sullivan MD Work Phone: [facility] Work Phone: 07-13-2024 Hepatitis B vaccine (recombinant), CpG adjuvanted Roro Pollard RN [facility] 06-07-2024 Hepatitis B vaccine (recombinant), CpG adjuvanted Roro Pollard RN [facility] 05-10-2024 Hepatitis B vaccine (recombinant), CpG adjuvanted Roro Pollard RN [facility] Work Phone: 01-01-2019 influenza, injectabl e, quadrivalent, contains preservative Kristal Sullivan MD Work Phone: [facility] 01-01-2019 tetanus and diphther ia toxoids, adsorbed, preservative free, for adult use (5 Lf of tetanus toxoid and 2 Lf of diphtheria toxoid) Kristal Sullivan MD Work Phone: [facility] 01-01-2019 influenza virus vacc ine, unspecified formulation Concha Araiza Tram [facility] 02-09-2018 influenza, injectabl e, quadrivalent, preservative free Dr. Kristal Sullivan Work Phone: [facility] 02-09-2018 influenza, seasonal, injectable Dr. Kristal Sullivan Work Phone: [facility] Work Phone: 02-09-2018 influenza, seasonal, injectable, preservative free Cecilia Rodriguez RN [facility] 01-20-2017 influenza, injectabl e, quadrivalent, contains preservative Kristal Sullivan MD Work Phone: [facility] Work Phone: 12-18-2015 tetanus and diphther ia toxoids, adsorbed, preservative free, for adult use (2 Lf of tetanus toxoid and 2 Lf of diphtheria toxoid) Dr. Kristal Sullivan Work Phone: [facility] 12-30-2011 influenza virus vacc ine, unspecified formulation Kristal Sullivan MD Work Phone: [facility] Work Phone: 07-29-2010 pneumococcal polysaccharide vaccine, 23 valent Kristal Sullivan MD Work Phone: [facility] Work Phone: Payers Date Payer Category Payer Medicaid [facility] ODM [id number] 2023 Unknown [id number] 2023 Self-pay [id number] 2018 Medicaid [employer] [id number] 2018-Present [phone] [address] [place] [address] Medicaid [id number] 2018 Medicaid [id number]. [id number] 2015 Unknown [id number] 2015 Unknown [id number] 1982 Unknown [id number] 2.16.840.1.052349.3.579.2.627 Unknown [id number] 2.16840.1.810909.3.579.2.462 Unknown [id number] 2.16840.1.021325.3.579.2.462 Unknown [id number] 2.16840.1.133036.3.579.2.462 Unknown [id number] 2.16.840.1.529032.3.579.2.462 Unknown [id number] 2.16.840.1.975426.3.579.2.462 Unknown [id number] 2.16.840.1.802550.3.579.2.462 Unknown [id number] 2.16.840.1.869787.3.579.2.462 Unknown [id number] 2.16840.1.538528.3.579.2.462 Unknown [id number] 2.16.840.1.519357.3.579.2.462 Unknown [id number] 2.16.840.1.433826.3.579.2.462 Unknown [id number] 2.16.840.1.452045.3.579.2.462 Unknown [id number] 2.16840.1.068911.3.579.2.462 Unknown [id number] 2.840.1.632172.3.579.2.462 Unknown [id number] 2.840.1.561888.3.579.2.462 Unknown [id number] 2.840.1.134582.3.579.2.462 Unknown [id number] 2.840.1.644783.3.579.2.462 Unknown [id number] 2.840.1.482375.3.579.2.462 Unknown [id number] 2.840.1.198552.3.579.2.462 Unknown [id number] 2.840.1.678714.3.579.2.462 Unknown [id number] .840.1.749946.3.579.2.462 Unknown [id number] 2.840.1.786237.3.579.2.462 Unknown [id number] .840.1.797293.3.579.2.462 Unknown [id number] .840.1.317710.3.579.2.462 Unknown [id number] 2.840.1.202331.3.579.2.462 Unknown [id number] 2.840.1.392250.3.579.2.462 Unknown [id number] 2.16840.1.877452.3.579.2.462 Unknown [id number] 2.16.840.1.536396.3.579.2.462 Unknown [id number] 2..840.1.482116.3.579.2.462 Unknown [id number] 2.16840.1.330646.3.579.2.462 Unknown [id number] 2.16.840.1.685429.3.579.2.462 Unknown [id number] 2.840.1.084639.3.579.2.462 Unknown [id number] 2.840.1.776303.3.579.2.462 Unknown [id number] 2.840.1.744672.3.579.2.462 Unknown [id number] 2.840.1.431942.3.579.2.462 Unknown [id number] 2.840.1.176375.3.579.2.462 Unknown [id number] 2.840.1.520701.3.579.2.462 Unknown [id number] 2.840.1.472044.3.579.2.462 Unknown [id number] 2.840.1.600911.3.579.2.462 Unknown [id number] 2.840.1.540992.3.579.2.462 Unknown [id number] 2.840.1.592638.3.579.2.462 Unknown [id number] 2.840.1.769800.3.579.2.462 Unknown [id number] 2.840.1.709603.3.579.2.462 Unknown [id number] 2.840.1.030548.3.579.2.462 Unknown [id number] 2.840.1.895339.3.579.2.462 Unknown [id number] 2.840.1.957995.3.579.2.462 Unknown [id number] 2.16.840.1.538633.3.579.2.462 Unknown [id number] 2.16.840.1.860790.3.579.2.462 Unknown [id number] 2.16.840.1.158724.3.579.2.462 Unknown [id number] 2.16.840.1.116617.3.579.2.462 Unknown [id number] 2.16.840.1.615752.3.579.2.462 Unknown [id number] 2.16.840.1.044404.3.579.2.462 Unknown [id number] 2.16.840.1.269210.3.579.2.462 Unknown [id number] 2.16.840.1.335098.3.579.2.462 Unknown [id number] 2.16840.1.320435.3.579.2.462 Unknown [id number] 2.16840.1.754737.3.579.2.462 Unknown [id number] 2.840.1.403405.3.579.2.462 Social History Date Type Detail Facility Start: 07-02-2021 End: 08-01-2023 Tobacco smoking status IAIS Unknown if ever smoked [facility] Start: 11-13-2019 None [facility] Start: 01-16-2020 With Family [facility] Start: 10-10-2020 Non-smoker [facility] Start: 1980 Sex Assigned At Male [facility] Start: 04-26-2022 End: 09-07-2024 Tobacco smoking status NHIS Never smoked tobacco [facility] Start: 03-14-2021 End: 09-21-2024 Alcohol intake Current non-drinker of alcohol (finding) [facility] Start: 1980 Sex Assigned At Not on file [facility] Start: 04-26-2022 End: 08-23-2024 Tobacco use and exposure Smokeless tobacco non-user [facility] Work Phone: Start: 07-02-2022 History SDOH Alcohol Frequency 1 [facility] Start: 07-02-2022 History SDOH Alcohol Std Drinks 0 [facility] Start: 07-02-2022 History SDOH Social Connections Phone 5 [facility] Start: 07-02-2022 History SDOH Social Connections [facility] Start: 07-02-2022 History SDOH Social Connections Living 8 [facility] Start: 07-02-2022 History SDOH Transport Med 2 [facility] Start: 07-02-2022 End: 09-21-2024 History of Social function [facility] Start: 07-02-2022 End: 09-21-2024 Social connection and isolation panel [facility] Do you belong to any clubs or organizations such as jewish groups, unions, fraternal or athletic groups, or school groups? Yes [facility] Are you now , , , , never or living with a partner? Living with partner [facility] How often to you hav e a drink containing alcohol? Never [facility] How many standard dr inks containing alcohol do you have on a typical day? Patient does not drink [facility] Do you feel stress - tense, restless, nervous, or anxious, or unable to sleep at night because your mind is troubled all the time - these days [OSQ] Not at all [facility] (I/We) worried wheth er (my/our) food would run out before (I/we) got money to buy more. Never true [facility] In the past 12 month s, was there a time when you were not able to pay the mortgage or rent on time? No [facility] Tobacco smoking status No Smokin g Status Entered [facility] Start: 01-05-2020 End: 02-04-2020 Exposure to SARS-CoV-2 (event) Not sure [facility] Start: 06-21-2024 End: 08-23-2024 Sex Male (finding) [facility] Start: 08-23-2024 Alcoholic beverage intake Life time non-drinker (finding) [employer] Medical Equipment Procedure Code Equipment Code Equipment Origin al Text Equipment Identifier Dates Insertion, catheter, hemodialysis Double-lumen haemodialysis catheter, implantable [id number] FDA Start: 01-30-2024 Creation, AV fistula Ligation cl ip, metallic ()[id number] FDA Start: 08-01-2023 Creation, AV fistula Ligation cl ip, metallic [id number] FDA Start: 08-01-2023 Creation, AV fistula Ligation cl ip, metallic ()[id number] FDA Start: 08-01-2023 Creation, AV fistula Ligation cl ip, metallic ()[id number] FDA Start: 08-01-2023 Pen Needle, Diab etic (Bd Ultra-Fine Carol Pen Needle) 32 gauge x 5/32 needle Start: 10-10-2020 Pen Needle, Diab etic (Bd Ultra-Fine Carol Pen Needle) 32 gauge x 5/32 needle Start: 01-07-2020 End: 10-10-2020 [id number], [id number], [id number], [id number], [id number] Start: 07-24-2016 End: 09-21-2024 Comment on above: 1 Strip as directed. DX E10.65 E10.3599 Test blood sugar 10 times daily . Dx. E10.3599 E10.65, Insulin: yes Use one needle for e ach dose. 7/day. Test blood sugar fou r times daily 250.00 Blood Sugar Diagnostic (Freestyle Lite Strips) strip Start: 10-08-2021 Lancing Device W ith Lancets (Onetouch Delica Plus Lanc Dev) kit Start: 10-08-2021 Pen Needle, Diab etic (Bd Ultra-Fine Carol Pen Needle) 32 gauge x 5/32 needle Start: 10-10-2020 Pen Needle, Diab etic (Bd Ultra-Fine Carol Pen Needle) 32 gauge x 5/32 needle Start: 01-07-2020 End: 10-10-2020 Blood Sugar Diagnostic (Freestyle Lite Strips) strip Start: 10-08-2021 Lancing Device W ith Lancets (Onetouch Delica Plus Lanc Dev) kit Start: 11-26-2021 Pen Needle, Diab etic (Bd Ultra-Fine Carol Pen Needle) 32 gauge x 5/32 needle Start: 02-26-2022 Lancing Device W ith Lancets (Onetouch Delica Plus Lanc Dev) kit Start: 10-08-2021 End: 11-26-2021 Pen Needle, Diab etic (Bd Ultra-Fine Carol Pen Needle) 32 gauge x 5/32 needle Start: 01-07-2020 End: 10-10-2020 Pen Needle, Diab etic (Bd Ultra-Fine Carol Pen Needle) 32 gauge x 5/32 needle Start: 10-10-2020 End: 02-26-2022 Blood Sugar Diagnostic (Freestyle Lite Strips) strip Start: 10-08-2021 Lancing Device W ith Lancets (Onetouch Delica Plus Lanc Dev) kit Start: 11-26-2021 Pen Needle, Diab etic (Bd Ultra-Fine Carol Pen Needle) 32 gauge x 5/32 needle Start: 02-26-2022 Lancing Device W ith Lancets (Onetouch Delica Plus Lanc Dev) kit Start: 10-08-2021 End: 11-26-2021 Pen Needle, Diab etic (Bd Ultra-Fine Carol Pen Needle) 32 gauge x 5/32 needle Start: 01-07-2020 End: 10-10-2020 Pen Needle, Diab etic (Bd Ultra-Fine Carol Pen Needle) 32 gauge x 5/32 needle Start: 10-10-2020 End: 02-26-2022 Blood Sugar Diagnostic (Freestyle Lite Strips) strip Start: 10-08-2021 Lancing Device W ith Lancets (Onetouch Delica Plus Lanc Dev) kit Start: 11-26-2021 Pen Needle, Diab etic (Bd Ultra-Fine Carol Pen Needle) 32 gauge x 5/32 needle Start: 02-26-2022 Lancing Device W ith Lancets (Onetouch Delica Plus Lanc Dev) kit Start: 10-08-2021 End: 11-26-2021 Pen Needle, Diab etic (Bd Ultra-Fine Carol Pen Needle) 32 gauge x 5/32 needle Start: 01-07-2020 End: 10-10-2020 Pen Needle, Diab etic (Bd Ultra-Fine Carol Pen Needle) 32 gauge x 5/32 needle Start: 10-10-2020 End: 02-26-2022 Blood Sugar Diagnostic (Freestyle Lite Strips) strip Start: 10-08-2021 Lancing Device W ith Lancets (Onetouch Delica Plus Lanc Dev) kit Start: 11-26-2021 Pen Needle, Diab etic (Bd Ultra-Fine Carol Pen Needle) 32 gauge x 5/32 needle Start: 02-26-2022 Lancing Device W ith Lancets (Onetouch Delica Plus Lanc Dev) kit Start: 10-08-2021 End: 11-26-2021 Pen Needle, Diab etic (Bd Ultra-Fine Carol Pen Needle) 32 gauge x 5/32 needle Start: 01-07-2020 End: 10-10-2020 Pen Needle, Diab etic (Bd Ultra-Fine Carol Pen Needle) 32 gauge x 5/32 needle Start: 10-10-2020 End: 02-26-2022 Blood Sugar Diagnostic (Freestyle Lite Strips) strip Start: 10-08-2021 Lancing Device W ith Lancets (Onetouch Delica Plus Lanc Dev) kit Start: 11-26-2021 Pen Needle, Diab etic (Bd Ultra-Fine Carol Pen Needle) 32 gauge x 5/32 needle Start: 02-26-2022 Lancing Device W ith Lancets (Onetouch Delica Plus Lanc Dev) kit Start: 10-08-2021 End: 11-26-2021 Pen Needle, Diab etic (Bd Ultra-Fine Carol Pen Needle) 32 gauge x 5/32 needle Start: 01-07-2020 End: 10-10-2020 Pen Needle, Diab etic (Bd Ultra-Fine Carol Pen Needle) 32 gauge x 5/32 needle Start: 10-10-2020 End: 02-26-2022 Blood Sugar Diagnostic (Freestyle Lite Strips) strip Start: 10-08-2021 Lancing Device W ith Lancets (Onetouch Delica Plus Lanc Dev) kit Start: 11-26-2021 Pen Needle, Diab etic (Bd Ultra-Fine Carol Pen Needle) 32 gauge x 5/32 needle Start: 02-26-2022 Lancing Device W ith Lancets (Onetouch Delica Plus Lanc Dev) kit Start: 10-08-2021 End: 11-26-2021 Pen Needle, Diab etic (Bd Ultra-Fine Carol Pen Needle) 32 gauge x 5/32 needle Start: 01-07-2020 End: 10-10-2020 Pen Needle, Diab etic (Bd Ultra-Fine Carol Pen Needle) 32 gauge x 5/32 needle Start: 10-10-2020 End: 02-26-2022 Blood Sugar Diagnostic (Freestyle Lite Strips) strip Start: 10-08-2021 Lancing Device W ith Lancets (Onetouch Delica Plus Lanc Dev) kit Start: 11-26-2021 Pen Needle, Diab etic (Bd Ultra-Fine Carol Pen Needle) 32 gauge x 5/32 needle Start: 02-26-2022 Lancing Device W ith Lancets (Onetouch Delica Plus Lanc Dev) kit Start: 10-08-2021 End: 11-26-2021 Pen Needle, Diab etic (Bd Ultra-Fine Carol Pen Needle) 32 gauge x 5/32 needle Start: 01-07-2020 End: 10-10-2020 Pen Needle, Diab etic (Bd Ultra-Fine Acrol Pen Needle) 32 gauge x 5/32 needle Start: 10-10-2020 End: 02-26-2022 Drug-eluting coronary artery stent, bpk-tqzsholvuqlbn-tr lymer-coated ([id number] FDA Start: 01-23-2024 Blood Sugar Diagnostic (Freestyle Lite Strips) strip Start: 10-08-2021 Insulin Syringe-Needle U-100 (Bd Insulin Syringe Ultra-Fine) 0.3 mL 31 gauge x 5/16 syringe Start: 03-30-2024 Lancing Device W ith Lancets (Onetouch Delica Plus Lanc Dev) kit Start: 11-26-2021 Pen Needle, Diab etic (Bd Ultra-Fine Carol Pen Needle) 32 gauge x 5/32 needle Start: 02-26-2022 Pen Needle, Diab etic (Bd Ultra-Fine Carol Pen Needle) 32 gauge x 5/32 needle Start: 03-30-2024 Lancing Device W ith Lancets (Onetouch Delica Plus Lanc Dev) kit Start: 10-08-2021 End: 11-26-2021 Pen Needle, Diab etic (Bd Ultra-Fine Carol Pen Needle) 32 gauge x 5/32 needle Start: 01-07-2020 End: 10-10-2020 Pen Needle, Diab etic (Bd Ultra-Fine Carol Pen Needle) 32 gauge x 5/32 needle Start: 10-10-2020 End: 02-26-2022 Blood Sugar Diagnostic (Freestyle Lite Strips) strip Start: 10-08-2021 Insulin Syringe-Needle U-100 (Bd Insulin Syringe Ultra-Fine) 0.3 mL 31 gauge x 5/16 syringe Start: 03-30-2024 Lancing Device W ith Lancets (Onetouch Delica Plus Lanc Dev) kit Start: 11-26-2021 Pen Needle, Diab etic (Bd Ultra-Fine Carol Pen Needle) 32 gauge x 5/32 needle Start: 02-26-2022 Pen Needle, Diab etic (Bd Ultra-Fine Carol Pen Needle) 32 gauge x 5/32 needle Start: 03-30-2024 Lancing Device W ith Lancets (Onetouch Delica Plus Lanc Dev) kit Start: 10-08-2021 End: 11-26-2021 Pen Needle, Diab etic (Bd Ultra-Fine Carol Pen Needle) 32 gauge x 5/32 needle Start: 01-07-2020 End: 10-10-2020 Pen Needle, Diab etic (Bd Ultra-Fine Carol Pen Needle) 32 gauge x 5/32 needle Start: 10-10-2020 End: 02-26-2022 Blood Sugar Diagnostic (Freestyle Lite Strips) strip Start: 10-08-2021 Insulin Syringe-Needle U-100 (Bd Insulin Syringe Ultra-Fine) 0.3 mL 31 gauge x 5/16 syringe Start: 03-30-2024 Lancing Device W ith Lancets (Onetouch Delica Plus Lanc Dev) kit Start: 11-26-2021 Pen Needle, Diab etic (Bd Ultra-Fine Carol Pen Needle) 32 gauge x 5/32 needle Start: 02-26-2022 Pen Needle, Diab etic (Bd Ultra-Fine Carol Pen Needle) 32 gauge x 5/32 needle Start: 03-30-2024 Lancing Device W ith Lancets (Onetouch Delica Plus Lanc Dev) kit Start: 10-08-2021 End: 11-26-2021 Pen Needle, Diab etic (Bd Ultra-Fine Carol Pen Needle) 32 gauge x 5/32 needle Start: 01-07-2020 End: 10-10-2020 Pen Needle, Diab etic (Bd Ultra-Fine Carol Pen Needle) 32 gauge x 5/32 needle Start: 10-10-2020 End: 02-26-2022 Blood Sugar Diagnostic (Freestyle Lite Strips) strip Start: 10-08-2021 Insulin Syringe-Needle U-100 (Bd Insulin Syringe Ultra-Fine) 0.3 mL 31 gauge x 5/16 syringe Start: 03-30-2024 Lancing Device W ith Lancets (Onetouch Delica Plus Lanc Dev) kit Start: 11-26-2021 Pen Needle, Diab etic (Bd Ultra-Fine Carol Pen Needle) 32 gauge x 5/32 needle Start: 02-26-2022 Pen Needle, Diab etic (Bd Ultra-Fine Carol Pen Needle) 32 gauge x 5/32 needle Start: 03-30-2024 Lancing Device W ith Lancets (Onetouch Delica Plus Lanc Dev) kit Start: 10-08-2021 End: 11-26-2021 Pen Needle, Diab etic (Bd Ultra-Fine Carol Pen Needle) 32 gauge x 5/32 needle Start: 01-07-2020 End: 10-10-2020 Pen Needle, Diab etic (Bd Ultra-Fine Carol Pen Needle) 32 gauge x 5/32 needle Start: 10-10-2020 End: 02-26-2022 Blood Sugar Diagnostic (Freestyle Lite Strips) strip Start: 10-08-2021 Insulin Syringe-Needle U-100 (Bd Insulin Syringe Ultra-Fine) 0.3 mL 31 gauge x 5/16 syringe Start: 03-30-2024 Lancing Device W ith Lancets (Onetouch Delica Plus Lanc Dev) kit Start: 11-26-2021 Pen Needle, Diab etic (Bd Ultra-Fine Carol Pen Needle) 32 gauge x 5/32 needle Start: 02-26-2022 Pen Needle, Diab etic (Bd Ultra-Fine Carol Pen Needle) 32 gauge x 5/32 needle Start: 03-30-2024 Lancing Device W ith Lancets (Onetouch Delica Plus Lanc Dev) kit Start: 10-08-2021 End: 11-26-2021 Pen Needle, Diab etic (Bd Ultra-Fine Carol Pen Needle) 32 gauge x 5/32 needle Start: 01-07-2020 End: 10-10-2020 Pen Needle, Diab etic (Bd Ultra-Fine Carol Pen Needle) 32 gauge x 5/32 needle Start: 10-10-2020 End: 02-26-2022 Blood Sugar Diagnostic (Freestyle Lite Strips) strip Start: 10-08-2021 Insulin Syringe-Needle U-100 (Bd Insulin Syringe Ultra-Fine) 0.3 mL 31 gauge x 5/16 syringe Start: 03-30-2024 Lancing Device W ith Lancets (Onetouch Delica Plus Lanc Dev) kit Start: 11-26-2021 Pen Needle, Diab etic (Bd Ultra-Fine Carol Pen Needle) 32 gauge x 5/32 needle Start: 02-26-2022 Pen Needle, Diab etic (Bd Ultra-Fine Carol Pen Needle) 32 gauge x 5/32 needle Start: 03-30-2024 Lancing Device W ith Lancets (Onetouch Delica Plus Lanc Dev) kit Start: 10-08-2021 End: 11-26-2021 Pen Needle, Diab etic (Bd Ultra-Fine Carol Pen Needle) 32 gauge x 5/32 needle Start: 01-07-2020 End: 10-10-2020 Pen Needle, Diab etic (Bd Ultra-Fine Carol Pen Needle) 32 gauge x 5/32 needle Start: 10-10-2020 End: 02-26-2022 Blood Sugar Diagnostic (Freestyle Lite Strips) strip Start: 10-08-2021 Insulin Syringe-Needle U-100 (Bd Insulin Syringe Ultra-Fine) 0.3 mL 31 gauge x 5/16 syringe Start: 03-30-2024 Lancing Device W ith Lancets (Onetouch Delica Plus Lanc Dev) kit Start: 11-26-2021 Pen Needle, Diab etic (Bd Ultra-Fine Carol Pen Needle) 32 gauge x 5/32 needle Start: 02-26-2022 Pen Needle, Diab etic (Bd Ultra-Fine Carol Pen Needle) 32 gauge x 5/32 needle Start: 03-30-2024 Lancing Device W ith Lancets (Onetouch Delica Plus Lanc Dev) kit Start: 10-08-2021 End: 11-26-2021 Pen Needle, Diab etic (Bd Ultra-Fine Carol Pen Needle) 32 gauge x 5/32 needle Start: 01-07-2020 End: 10-10-2020 Pen Needle, Diab etic (Bd Ultra-Fine Carol Pen Needle) 32 gauge x 5/32 needle Start: 10-10-2020 End: 02-26-2022 Blood Sugar Diagnostic (Freestyle Lite Strips) strip Start: 10-08-2021 Insulin Syringe-Needle U-100 (Bd Insulin Syringe Ultra-Fine) 0.3 mL 31 gauge x 5/16 syringe Start: 03-30-2024 Lancing Device W ith Lancets (Onetouch Delica Plus Lanc Dev) kit Start: 11-26-2021 Pen Needle, Diab etic (Bd Ultra-Fine Carol Pen Needle) 32 gauge x 5/32 needle Start: 02-26-2022 Pen Needle, Diab etic (Bd Ultra-Fine Carol Pen Needle) 32 gauge x 5/32 needle Start: 03-30-2024 Lancing Device W ith Lancets (Onetouch Delica Plus Lanc Dev) kit Start: 10-08-2021 End: 11-26-2021 Pen Needle, Diab etic (Bd Ultra-Fine Carol Pen Needle) 32 gauge x 5/32 needle Start: 01-07-2020 End: 10-10-2020 Pen Needle, Diab etic (Bd Ultra-Fine Carol Pen Needle) 32 gauge x 5/32 needle Start: 10-10-2020 End: 02-26-2022 Blood Sugar Diagnostic (Freestyle Lite Strips) strip Start: 10-08-2021 Insulin Syringe-Needle U-100 (Bd Insulin Syringe Ultra-Fine) 0.3 mL 31 gauge x 5/16 syringe Start: 03-30-2024 Lancing Device W ith Lancets (Onetouch Delica Plus Lanc Dev) kit Start: 11-26-2021 Pen Needle, Diab etic (Bd Ultra-Fine Carol Pen Needle) 32 gauge x 5/32 needle Start: 02-26-2022 Pen Needle, Diab etic (Bd Ultra-Fine Carol Pen Needle) 32 gauge x 5/32 needle Start: 03-30-2024 Lancing Device W ith Lancets (Onetouch Delica Plus Lanc Dev) kit Start: 10-08-2021 End: 11-26-2021 Pen Needle, Diab etic (Bd Ultra-Fine Carol Pen Needle) 32 gauge x 5/32 needle Start: 01-07-2020 End: 10-10-2020 Pen Needle, Diab etic (Bd Ultra-Fine Carol Pen Needle) 32 gauge x 5/32 needle Start: 10-10-2020 End: 02-26-2022 Blood Sugar Diagnostic (Freestyle Lite Strips) strip Start: 10-08-2021 Insulin Syringe-Needle U-100 (Bd Insulin Syringe Ultra-Fine) 0.3 mL 31 gauge x 5/16 syringe Start: 03-30-2024 Lancing Device W ith Lancets (Onetouch Delica Plus Lanc Dev) kit Start: 11-26-2021 Pen Needle, Diab etic (Bd Ultra-Fine Carol Pen Needle) 32 gauge x 5/32 needle Start: 02-26-2022 Pen Needle, Diab etic (Bd Ultra-Fine Carol Pen Needle) 32 gauge x 5/32 needle Start: 03-30-2024 Lancing Device W ith Lancets (Onetouch Delica Plus Lanc Dev) kit Start: 10-08-2021 End: 11-26-2021 Pen Needle, Diab etic (Bd Ultra-Fine Carol Pen Needle) 32 gauge x 5/32 needle Start: 01-07-2020 End: 10-10-2020 Pen Needle, Diab etic (Bd Ultra-Fine Carol Pen Needle) 32 gauge x 5/32 needle Start: 10-10-2020 End: 02-26-2022 Blood Sugar Diagnostic (Freestyle Lite Strips) strip Start: 10-08-2021 Insulin Syringe-Needle U-100 (Bd Insulin Syringe Ultra-Fine) 0.3 mL 31 gauge x 5/16 syringe Start: 03-30-2024 Lancing Device W ith Lancets (Onetouch Delica Plus Lanc Dev) kit Start: 11-26-2021 Pen Needle, Diab etic (Bd Ultra-Fine Carol Pen Needle) 32 gauge x 5/32 needle Start: 02-26-2022 Pen Needle, Diab etic (Bd Ultra-Fine Carol Pen Needle) 32 gauge x 5/32 needle Start: 03-30-2024 Lancing Device W ith Lancets (Onetouch Delica Plus Lanc Dev) kit Start: 10-08-2021 End: 11-26-2021 Pen Needle, Diab etic (Bd Ultra-Fine Carol Pen Needle) 32 gauge x 5/32 needle Start: 01-07-2020 End: 10-10-2020 Pen Needle, Diab etic (Bd Ultra-Fine Carol Pen Needle) 32 gauge x 5/32 needle Start: 10-10-2020 End: 02-26-2022 Blood Sugar Diagnostic (Freestyle Lite Strips) strip Start: 10-08-2021 Insulin Syringe-Needle U-100 (Bd Insulin Syringe Ultra-Fine) 0.3 mL 31 gauge x 5/16 syringe Start: 03-30-2024 Lancing Device W ith Lancets (Onetouch Delica Plus Lanc Dev) kit Start: 11-26-2021 Pen Needle, Diab etic (Bd Ultra-Fine Carol Pen Needle) 32 gauge x 5/32 needle Start: 02-26-2022 Pen Needle, Diab etic (Bd Ultra-Fine Carol Pen Needle) 32 gauge x 5/32 needle Start: 03-30-2024 Lancing Device W ith Lancets (Onetouch Delica Plus Lanc Dev) kit Start: 10-08-2021 End: 11-26-2021 Pen Needle, Diab etic (Bd Ultra-Fine Carol Pen Needle) 32 gauge x 5/32 needle Start: 01-07-2020 End: 10-10-2020 Pen Needle, Diab etic (Bd Ultra-Fine Carol Pen Needle) 32 gauge x 5/32 needle Start: 10-10-2020 End: 02-26-2022 Goals Date Patient Goal Desired Activity /State Personal health goal Personal health goal Personal health goal Comment on above: Formatting of this n ote might be different from the original. Try to get control of BSs Comment on above: Formatting of this n ote might be different from the original. Try to get control of BSs Functional Status Date Assessment Result Facility 08-11-2024 Functional status Ambulates [facility] Work Phone: 07-03-2023 Functional status Up ad renard [facility] Work Phone: 07-02-2023 Functional status Up ad renard [facility] Work Phone: 08-29-2014 Are you deaf, or do you have serious difficulty hearing No 08/29/2014 9:52 AM EDLalita Cornelius LPN No [facility] 08-29-2014 Are you blind, or do you have serious difficulty seeing, even when wearing glasses No 08/29/2014 9:52 AM EDT Lalita Morrow LPN No [facility] 08-29-2014 Do you have serious difficulty walking or climbing stairs No 08/29/2014 9:52 AM EDT Lalita Morrow LPN No [facility] 08-29-2014 Do you have difficul ty dressing or bathing No 08/29/2014 9:52 AM SYLVIAT Lalita Morrow LPN No [facility] 08-29-2014 Because of a physica l, mental, or emotional condition, do you have difficulty doing errands alone such as visiting a physician's office or shopping No 08/29/2014 9:52 AM Lalita Goode LPN No [facility] Mental Status Date Assessment Result Facility 08-31-2024 Cognitive function Voice/Name [facility] Work Phone: 08-23-2024 Cognitive function Level Of Cons ciousness Awake;Alert;Appropriate;Fol lows Commands [facility] Work Phone: 08-11-2024 Cognitive function Voice/Name [facility] Work Phone: 08-10-2024 Cognitive function Voice/Name [facility] Work Phone: 07-20-2024 Cognitive function Voice/Name [facility] Work Phone: 04-20-2024 Cognitive function Level Of Cons ciousness Awake;Alert;Appropriate;Fol lows Commands [facility] Work Phone: 08-01-2023 Cognitive function Voice/Name [facility] Work Phone: 07-03-2023 Cognitive function Voice/Name [facility] Work Phone: 07-01-2023 Cognitive function Voice/Name [facility] Work Phone: 04-07-2023 Cognitive function Level Of Cons ciousness Awake;Alert;Appropriate;Fol lows Commands [facility] Work Phone: 11-02-2021 Cognitive function Level Of Cons ciousness Awake;Alert;Appropriate [facility] Work Phone: 08-29-2014 Because of a physica l, mental, or emotional condition, do you have serious difficulty concentrating, remembering, or making decisions No 08/29/2014 9:52 AM EDT Lalita Morrow LPN No [facility] Clinical Notes 02-04-2020 to 10-14-2024 Bg Jennings RN - 10/14/2024 11:07 AM EDTTelephone Encounter - Sindy Alonzo - 10/06/2024 11:10 AM EDTTelephone Encounter - Sindy Alonzo - 10/06/2024 11:10 AM EDTPatient Instructions Note Date & Type Note Facility 10-14-2024 Note HNO ID: [id number] Author: BG JENNINGS RN Service: ? Author Type: Registered Nurse Type: Progress Notes Filed: 10/14/2024 11:09 Note Text: Kidney/Pancreas Transplant Wait List Education Note Type of Transplant: Simultaneous Kidney-Pancreas Informed Consent for Evaluation signed: To be signed upon arrival to in-person evaluation. Informed Consent for Addition to Wait List Signed: To be signed upon arrival to in-person evaluation. Multiple Listing Form signed: To be signed upon arrival to in-person evaluation. READINESS TO LEARN: Cognitive Ability: Alert and oriented Motivation to Learn: Eager Family Support: High - Very involved in pt care Instruction Provided to: Patient and Family member Patient Learns Best by: Multiple Methods Factors Affecting Learning: None Physical Limitations Affecting Learning: None Supplemental Material: -UNOS: Questions AND Answers for Transplant Candidates about Multiple Listing and Waiting Time Transfer -UNOS: Questions AND Answers for Transplant Candidates about Simultaneous Kidney-Pancreas Allocation Policy -Current SRTR Program Summary -Informed Consent for Transplant Program Participation patient education packet -National Kidney Registry pamphlet: N/A -Center for Disease Control General Information: Hepatitis C Handout -Covid-19 Vaccination for Transplant Candidates Additional Information: -The patient was re-educated regarding the responsibilities of being listed on the transplant waitlist. - Patient encouraged to avoid blood transfusion unless it's deemed a medically necessary. -Educated patient on the current allocation policy per UNOS regarding kidney and/or kidney-pancreas/pancreas transplant. - Education covered the need for monthly serum samples to be drawn and sent to the [facility] while actively listed. - The patient was told to inform the Pre Transplant office if there are any changes in their medical condition, demographics, insurance coverage ( including medication coverage) and or dialysis units. - The patient was reminded to fax test results of studies that were obtained outside [facility] facilities. -Explained lifetime immunosuppression therapy and frequency of blood draws/labs post-op and post-op course of treatment. Method of Instruction: Group class instruction Written instruction/Handouts Verbal instruction Video Computer Patient/Family Response: Patient asked appropriate questions, which were answered satisfactorily. Bg Jennings RN Kidney/Pancreas Pre-Third Shift Lieutenant [facility] 10-14-2024 History of Present illness Narrative Kidney/Pancreas Transplant Wait List Education Note Type of Transplant: Simultaneous Kidney-Pancreas Informed Consent for Evaluation signed: To be signed upon arrival to in-person evaluation. Informed Consent for Addition to Wait List Signed: To be signed upon arrival to in-person evaluation. Multiple Listing Form signed: To be signed upon arrival to in-person evaluation. READINESS TO LEARN: Cognitive Ability: Alert and oriented Motivation to Learn: Eager Family Support: High - Very involved in pt care Instruction Provided to: Patient and Family member Patient Learns Best by: Multiple Methods Factors Affecting Learning: None Physical Limitations Affecting Learning: None Supplemental Material: -UNOS: Questions & Answers for Transplant Candidates about Multiple Listing and Waiting Time Transfer -UNOS: Questions & Answers for Transplant Candidates about Simultaneous Kidney-Pancreas Allocation Policy -Current SRTR Program Summary -Informed Consent for Transplant Program Participation patient education packet -National Kidney Registry pamphlet: N/A -Center for Disease Control General Information: Hepatitis C Handout -Covid-19 Vaccination for Transplant Candidates Additional Information: -The patient was re-educated regarding the responsibilities of being listed on the transplant waitlist. - Patient encouraged to avoid blood transfusion unless it's deemed a medically necessary. -Educated patient on the current allocation policy per UNOS regarding kidney and/or kidney-pancreas/pancreas transplant. - Education covered the need for monthly serum samples to be drawn and sent to the [facility] while actively listed. - The patient was told to inform the Pre Transplant office if there are any changes in their medical condition, demographics, insurance coverage ( including medication coverage) and or dialysis units. - The patient was reminded to fax test results of studies that were obtained outside [facility] facilities. -Explained lifetime immunosuppression therapy and frequency of blood draws/labs post-op and post-op course of treatment. Method of Instruction: Group class instruction Written instruction/Handouts Verbal instruction Video Computer Patient/Family Response: Patient asked appropriate questions, which were answered satisfactorily. Bg Jennings RN Kidney/Pancreas Pre-Third Shift Lieutenant documented in this encounter [facility] 10-06-2024 Telephone encounter Note Spoke with patient to confirm scheduled waitlist kidney transplant re-evaluation for next week. Did they receive their schedule? Yes Remind the patient to sign up for MyChart if they have not already - Yes Sindy Alonzo [facility] 10-06-2024 Miscellaneous Notes Spoke with patient to confirm scheduled waitlist kidney transplant re-evaluation for next week. Did they receive their schedule? Yes Remind the patient to sign up for MyChart if they have not already - Yes Sindy Alonzo documented in this encounter [facility] 09-21-2024 Note HNO ID: [id number] Author: KRISTAL SULLIVAN MD Service: ? Author Type: Physician Type: Progress Notes Filed: 09/22/2024 11:51 Note Text: Reason for Visit Follow up HPI Laurie Gonzales is a 44-year-old male with a history of HI, CKD on dialysis, and dysphagia, presenting for follow-up after a recent hospitalization for a port infection. Laurie was hospitalized on the for a port infection related to his dialysis. He initially presented to the ED with emesis and a fever of 103 degreeF, and was subsequently transferred to [place], where he was admitted for a week. The infection necessitated the removal of his port. He is currently on IV antibiotics, with his last dose scheduled for this Friday. During his hospitalization, he was evaluated by a application security developer due to dysphagia. An endoscopy revealed a stricture, which was dilated, and biopsies were taken from erythematous areas, all of which returned negative results. Laurie has a functioning AV fistula in his left forearm, which has been in place since January 04 of last year. He is currently undergoing dialysis at [facility] on Mondays, Wednesdays, and Fridays. He reports being contacted by the [facility] as a backup for a pancreas transplant and is hopeful to return to work soon. Laurie was previously employed part-time at [employer] but was let go due to multiple surgeries and his current medical condition. He has since been approved for Social Security but had to wait five months without income before receiving benefits. He is not eligible for unemployment due to his part-time status. He is under the care of house designer Dr. Mckeon, whom he has seen twice. Most of his interactions are with Dr. Mckeon's nurse at [facility], whom he describes as super nice. Laurie has a phone appointment with the transplant center at the [facility] on September 04 and an in-person appointment on the . He is also using an insulin pump for diabetes management. Social History Tobacco Use Smoking status: Never Smokeless tobacco: Never Substance Use Topics Alcohol use: No Drug use: No Past medical history, appointments, medications, allergies reviewed. Pertinent Lab/Diagnostic Studies are reviewed and discussed today Current Outpatient Medications: DEXCOM G6 SENSOR aiden OMNIPOD 5 G6-G7 PODS, GEN 5, crtg sevelamer carbonate (RENVELA) 800 mg tablet metoprolol succinate ER (TOPROL XL) 25 mg 24 hr tablet amLODIPine (NORVASC) 5 mg tablet Acetone, Urine, Test (KETONE URINE TEST) blood sugar diagnostic (FREESTYLE LITE STRIPS) test strip MEDICAL SUPPLY rosuvastatin (CRESTOR) 20 mg tablet alcohol swabs padm Insulin Triangle, Disposable, (BD ULTRA-FINE CAROL PEN NEEDLE) 32 gauge x 5/32 ndle Zn Svadxdd-Euaymhorimn-Kub (AMERIGEL) gel Nut.Tx.Gluc.Intol,Lac-Free,Soy (GLUCERNA SHAKE) liqd insulin aspart U-100 (NOVOLOG FLEXPEN U-100 INSULIN) 100 unit/mL (3 mL) Health Maintenance Pneumococcal Vaccine(2 of 2 - PCV) DTaP,Tdap,Td Vaccine(1 - Tdap) Dilated Retinal Exam Diabetic Foot Exam Covid-19 Vaccine( season)@ Review Of Systems Physical Exam BP 135/80 Pulse 82 Resp 16 Wt 89.4 kg (197 lb 3.2 oz) BMI 27.61 kg/m? GENERAL: NAD, alert and oriented. SKIN: Unremarkable, no rash or skin lesions. HEAD: Normocephalic. EYES: PERRLA, EOMI, conjunctiva clear. EARS: External ears normal, canals clear, TM's normal. LUNGS: Clear to auscultation bilaterally, no wheezes/rhonchi/rales. HEART: Regular rate and rhythm, no murmurs. No ectopy. EXTREMITIES: Normal, no deformities, no skin discoloration, no edema. NEURO: Awake, alert and oriented x3, cranial nerves II-XII grossly intact, normal gait, no involuntary motions. Labs: - Hemoglobin: 9.3 - A1c: Within normal limits Tests: - Endoscopy: Esophageal stricture indicated; balloon dilation performed. Biopsy from erythematous areas negative for abnormalities. Assessment and Plan 1. Complication associated with dialysis catheter (T82.9XXA) Patient experienced a severe infection related to the dialysis catheter, necessitating removal and hospitalization at [place] for over a week. Completed a course of IV antibiotics, with the last dose administered on Friday. 2. Type 1 diabetes mellitus with hyperosmolarity without coma (HCC) (E10.69) Patient is on an insulin pump; blood glucose levels are stable. he is on the transplant list for pancrease and kidney transplant. 3. Essential hypertension (I10) controlled on current med 4. Mixed hyperlipidemia (E78.2) cont the statin med 5. Screening for depression (Z13.31) 6. Encounter for screening examination for other mental health and behavioral disorders (Z13.39) 7. Encounter for immunization (Z23) Administered pneumonia vaccination. 8. Chronic kidney disease, stage 5 (HCC) (N18.5) Dependence on renal dialysis (Z99.2) Patient is on hemodialysis via a functioning AV fistula in the left f (more content not included)... [facility] 06-24-2025 History of Present illness Narrative Reason for Visit Follow up HPI Laurie Gonzales is a 44-year-old male with a history of HI, CKD on dialysis, and dysphagia, presenting for follow-up after a recent hospitalization for a port infection. Laurie was hospitalized on the for a port infection related to his dialysis. He initially presented to the ED with emesis and a fever of 103 degreeF, and was subsequently transferred to [place], where he was admitted for a week. The infection necessitated the removal of his port. He is currently on IV antibiotics, with his last dose scheduled for this Friday. During his hospitalization, he was evaluated by a application security developer due to dysphagia. An endoscopy revealed a stricture, which was dilated, and biopsies were taken from erythematous areas, all of which returned negative results. Laurie has a functioning AV fistula in his left forearm, which has been in place since January 04 of last year. He is currently undergoing dialysis at [facility] on Mondays, Wednesdays, and Fridays. He reports being contacted by the [facility] as a backup for a pancreas transplant and is hopeful to return to work soon. Laurie was previously employed part-time at [employer] but was let go due to multiple surgeries and his current medical condition. He has since been approved for Social Security but had to wait five months without income before receiving benefits. He is not eligible for unemployment due to his part-time status. He is under the care of house designer Dr. Mckeon, whom he has seen twice. Most of his interactions are with Dr. Mckeon's nurse at [facility], whom he describes as super nice. Laurie has a phone appointment with the transplant center at the [facility] on September 04 and an in-person appointment on the . He is also using an insulin pump for diabetes management. Social History Tobacco Use Smoking status: Never Smokeless tobacco: Never Substance Use Topics Alcohol use: No Drug use: No Past medical history, appointments, medications, allergies reviewed. Pertinent Lab/Diagnostic Studies are reviewed and discussed today Current Outpatient Medications: DEXCOM G6 SENSOR aiden OMNIPOD 5 G6-G7 PODS, GEN 5, crtg sevelamer carbonate (RENVELA) 800 mg tablet metoprolol succinate ER (TOPROL XL) 25 mg 24 hr tablet amLODIPine (NORVASC) 5 mg tablet Acetone, Urine, Test (KETONE URINE TEST) blood sugar diagnostic (FREESTYLE LITE STRIPS) test strip MEDICAL SUPPLY rosuvastatin (CRESTOR) 20 mg tablet alcohol swabs padm Insulin Triangle, Disposable, (BD ULTRA-FINE CAROL PEN NEEDLE) 32 gauge x 5/32 ndle Zn Hymaubt-Bakewxzakqe-Vxv (AMERIGEL) gel Nut.Tx.Gluc.Intol,Lac-Free,Soy (GLUCERNA SHAKE) liqd insulin aspart U-100 (NOVOLOG FLEXPEN U-100 INSULIN) 100 unit/mL (3 mL) Health Maintenance Pneumococcal Vaccine(2 of 2 - PCV) DTaP,Tdap,Td Vaccine(1 - Tdap) Dilated Retinal Exam Diabetic Foot Exam Covid-19 Vaccine( season)@ Review Of Systems Physical Exam BP 135/80 Pulse 82 Resp 16 Wt 89.4 kg (197 lb 3.2 oz) BMI 27.61 kg/m GENERAL: NAD, alert and oriented. SKIN: Unremarkable, no rash or skin lesions. HEAD: Normocephalic. EYES: PERRLA, EOMI, conjunctiva clear. EARS: External ears normal, canals clear, TM's normal. LUNGS: Clear to auscultation bilaterally, no wheezes/rhonchi/rales. HEART: Regular rate and rhythm, no murmurs. No ectopy. EXTREMITIES: Normal, no deformities, no skin discoloration, no edema. NEURO: Awake, alert and oriented x3, cranial nerves II-XII grossly intact, normal gait, no involuntary motions. Labs: - Hemoglobin: 9.3 - A1c: Within normal limits Tests: - Endoscopy: Esophageal stricture indicated; balloon dilation performed. Biopsy from erythematous areas negative for abnormalities. Assessment and Plan 1. Complication associated with dialysis catheter (T82.9XXA) Patient experienced a severe infection related to the dialysis catheter, necessitating removal and hospitalization at [place] for over a week. Completed a course of IV antibiotics, with the last dose administered on Friday. 2. Type 1 diabetes mellitus with hyperosmolarity without coma (HCC) (E10.69) Patient is on an insulin pump; blood glucose levels are stable. he is on the transplant list for pancrease and kidney transplant. 3. Essential hypertension (I10) controlled on current med 4. Mixed hyperlipidemia (E78.2) cont the statin med 5. Screening for depression (Z13.31) 6. Encounter for screening examination for other mental health and behavioral disorders (Z13.39) 7. Encounter for immunization (Z23) Administered pneumonia vaccination. 8. Chronic kidney disease, stage 5 (HCC) (N18.5) Dependence on renal dialysis (Z99.2) Patient is on hemodialysis via a functioning AV fistula in the left forearm, attending sessions at [facility] on Friday, Friday, and Friday. Patient is on the transplant list for pancreas and kidney. - Continue regular dialysis sessions. - Complete ordered lab work for transplant evaluation at our facility. 9. Esophageal stricture (K22.2) Diagnosed with esophageal stricture; underwent endoscopic dilation by Dr. Andres Angulo. Biopsies taken during the procedure returned negative results. 10. Anemia in stage 5 chronic kidney disease, not on chronic dialysis (HCC) (N18.5) Recent hemoglobin level was 9.3 g/dL. Patient has a history of iron infusions. request iron labs from dialysis center to see if he needs more infusions Voice recognition software was used to compose this office note. Please excuse any unintended typographical errors. Recording using [employer] software for draft documentation of the visit was discussed with the patient/authorized sales representative; all questions welcomed and answered. Patient/authorized sales representative agreed to proceed Kristal Sullivan MD documented in this encounter [facility] 09-21-2024 Instructions Kristal Sullivan MD - 09/21/2024 12:20 PM EDT We discussed your recent health concerns and ongoing care: - Dialysis and Fistula Use: - You are currently undergoing dialysis at [facility] on Friday, Friday, and Friday. - Your left forearm fistula is functioning well and is now being used for dialysis. - Pancreas and Kidney Transplant: - You are on the transplant list as a backup for a pancreas and kidney transplant. - Due to your recent infection, you are not eligible for transplant until after January 25. If a match becomes available before then, you will be passed over. - Recent Infection and Antibiotics: - You had a port infection that required hospitalization and removal of the port. - You are currently on IV antibiotics, with your last dose scheduled for this Friday. - Please ensure your mother administers the remaining doses as instructed. - Endoscopy and Swallowing Issues: - You recently underwent an endoscopy with your application security developer, Dr. Andres Angulo. A stricture in your throat was identified and treated with balloon dilation. Biopsies taken during the procedure were negative. - Anemia and Lab Work: - Your hemoglobin level was 9.3, which is consistent with anemia of chronic disease. - You are not currently receiving iron infusions, but this may be revisited if needed. - A significant amount of blood work has been ordered by the transplant team at the [facility]. You can complete this testing locally at our facility rather than traveling to the main campus. - Vaccination: - You received a pneumonia vaccine today to help protect against infections. - Diabetes Management: - You are using an insulin pump to manage your diabetes. Please continue monitoring your blood sugar levels as instructed. Follow-Up and Next Steps: - Your next phone appointment with the [facility] transplant team is scheduled for September 04. You will also have an in-person appointment at the [facility] on September 21. - Complete the ordered blood work at our facility before your transplant appointments. - Continue attending dialysis sessions as scheduled and notify your house designer, Dr. Mckeon, or his nurse if you experience any issues. - If you develop any new symptoms, such as fever, worsening fatigue, or signs of infection, please contact our office immediately. Please let us know if you have any additional questions or concerns. documented in this encounter [facility] 09-16-2024 Radiology Diagnostic study note [facility] Imaging Services [address] [place] [id number] Esophagus Dual Contrast MR#: [id number] Acct: [id number] Name: LAURIE GONZALES Rep #: [id number] : 1980 M 44 From: [employer] DO PCP: Dr. Kristal Sullivan MD Status: REG C EULALIO Study:Esophagus Dual Contrast Date of Exam: 09/16/24 Exam# [id number] Ordering Dr: Kalina Payne ADDENDUM by Dr. Neeraj Brown MD on 09/16/24 at 1105 This is an addendum report. Air-contrast esophagram barium swallow. Radiation dose: 35 seconds of fluoroscopy. 7.4 mGy. The patient ingested barium. Multiple images were obtained fluoroscopically. No evidence of obstruction. The patient ingested a 12 mm tablet the barium. The tablet is trapped at the gastroesophageal junction. Endoscopic correlation recommended. Reading Location: [facility] 09/16/24 1105 Date cc: RAVINDER Payne; Dr. Kristal Sullivan MD ~* Signed PROCEDURE: ESOPHAGUS DUAL CONTRAST 09/16/2024 REASON FOR EXAM: ODYNOPHAGIA, DYSPHAGIA TECHNIQUE: ESOPHAGUS DUAL CONTRAST COMPARISON: None. FINDINGS: Bones: Unremarkable. Joints: Unremarkable. Soft tissues: Dual contrast images of the esophagus are obtained. The esophageal mucosa appears thin/normal. Other: Normal forward peristalsis initially GE junction has normal appearance ondouble contrast images. Tertiary contraction waves. Tertiary esophageal contractions are non propulsive irregular contractions of the esophagus that can be radiographically. These tissue contractions are not part of the normal peristalsis is often associated with esophageal motility disorders sometimes associated with conditions like esophageal spasm, achalasia, and gastroesophageal reflux disease GERD. RAD/Esophagus Dual Contrast IMPRESSION: Tertiary esophageal contractions Reading Location: [facility] CC: RAVINDER Payne; Dr. Kristal Sullivan MD ~ Imcu Specialist: Signed [facility] 09-13-2024 Note HNO ID: [id number] Author: MARTHA CHEATHAM RRT Service: ? Author Type: Respiratory Therapist Type: Progress Notes Filed: 09/13/2024 22:17 Note Text: Laurie Gonzales called due to recent ED visits and Hospital admit 08-23. Pt stated that recent ED visit on 08-31 was due to a sore throat and difficulty swallowing. Pt had endoscopy completed with biopsy- pt states no abnormal findings. Admit 08-23 required a 3 day admission due to Sepsis. Pt stated was on antibiotics in hospital and was discharged to receive antibiotics at [facility] dialysis sessions until September 23. Dr Tamayo made aware of findings, MD reviewed Pt with Dr Ferguson. MDS would like to consult ID in am if pt were to receive an Offer Martha Cheatham RRT Third Shift Lieutenant [facility] 09-13-2024 History of Present illness Narrative Laurie Tan Christian called due to recent ED visits and Hospital admit 08-23. Pt stated that recent ED visit on 08-31 was due to a sore throat and difficulty swallowing. Pt had endoscopy completed with biopsy- pt states no abnormal findings. Admit 08-23 required a 3 day admission due to Sepsis. Pt stated was on antibiotics in hospital and was discharged to receive antibiotics at [facility] dialysis sessions until September 23. Dr Tamayo made aware of findings, MD reviewed Pt with Dr Ferguson. MDS would like to consult ID in am if pt were to receive an Offer Martha Cheatham CHOREOGRAPHY DIRECTOR Third Shift Lieutenant documented in this encounter [facility] 09-07-2024 Progress note [facility] 08-31-2024 Consult note [facility] 08-31-2024 Procedure note [facility] 08-31-2024 Procedure note [facility] 08-31-2024 History and physi digna note [facility] 08-31-2024 Note [facility] 08-31-2024 Consult note [facility] 08-28-2024 Note Attestation with edits by Maria Luz Trujillo MD at 08/29/2024 11:12 AM Patient seen & examined on day of discharge 08/28. I saw and evaluated the patient. I agree with the findings and plan of care as documented in the resident's note. My personal highlights or additions contained within body of DC summary. Internal Medicine: Med Team Discharge Summary Farrah Gonzales : 1980 ADMIT DATE: 08/23/2024 DISCHARGE DATE: 08/28/24 PCP: Kristal Sullivan MD Visit Status: Admission Code Status: FULL CODE Primary Discharge Diagnosis: Sepsis 2/2 MSSA Bacteremia from infected tunneled line Secondary Discharge Diagnoses: Hemangioma of Right liver lobe Elevated LFTs Diarrhea Nausea Vomiting Reason for Admission & Hospital Course: Farrah Gonzales is a 44 y.o. male that presented to [facility] on 08/23/[facility]24 and was admitted for sepsis 2/2 MSSA bacteremia from an infected HD tunneled line. Initial symptoms were significant for fever, chills, nausea and vomiting. He was started on empiric antibiotics and blood cultures were obtained which eventually grew MSSA. Infectious disease was consulted and recommended removal of the tunneled dialysis line as likely source of infection and started him on Ancef. Nephrology was consulted for management of the patient's hemodialysis. He was given a brief line holiday, but his fistula was deemed to be mature and he was started on dialysis utilizing his fistula. Workup of his diarrhea/nausea/vomiting did not reveal any infectious cause. Over the course of the admission, his diarrhea, nausea, and vomiting all improved and thus were attributed to sepsis/infection. Endocrinology was consulted for management of his type 1 diabetes in the setting of an insulin pump and his blood sugars were well-controlled with subcutaneous insulin while admitted. Endocrinology recommended he restart his insulin pump at home on discharge and follow-up with them as an outpatient. Patient was also found to be hypertensive during the admission and adjustments were made to his antihypertensive regimen. He will be discharged on amlodipine 10 mg daily and Coreg 25 mg twice daily with instructions to follow-up with his PCP for further adjustments. Patient noted on day of discharge that he developed a left eye floater after he had been vomiting, denies any pain to the area but says it is worsened by rapid movement of his eye. Will have him follow-up with ophthalmology as an outpatient. Repeat blood cultures after starting antibiotics were negative at 72 hours, and ID recommended patient be discharged with Ancef 2g/3g/3g post hemodialysis for 4 weeks EOT 09/22/24. Discharged home in improved condition. Physical Exam on Day of Discharge: See progress note Disposition: Home Activity: No restriction. Diet: Adult diet Regular Discharge Medications: Medication List START taking these medications amLODIPine 10 MG tablet Commonly known as: Norvasc Take 1 tablet (10 mg) by mouth daily. Start taking on: August 29, 2024 aspirin 81 MG EC tablet Take 1 tablet (81 mg) by mouth daily. Start taking on: August 29, 2024 carvedilol 25 MG tablet Commonly known as: Coreg Take 1 tablet (25 mg) by mouth 2 times daily (with meals). clopidogrel 75 MG tablet Commonly known as: Plavix Take 1 tablet (75 mg) by mouth daily. Start taking on: August 29, 2024 pantoprazole 40 MG EC tablet Commonly known as: ProtoNix Take 1 tablet (40 mg) by mouth every morning (before breakfast). Do not crush, chew, or split. Start taking on: August 29, 2024 rosuvastatin 20 MG tablet Commonly known as: Crestor Take 1 tablet (20 mg) by mouth Nightly. Where to Get Your Medications These medications were sent to [id number] - [place], [place] - [address] [facility] [address] [facility] [id number] amLODIPine 10 MG tablet aspirin 81 MG EC tablet carvedilol 25 MG tablet clopidogrel 75 MG tablet pantoprazole 40 MG EC tablet rosuvastatin 20 MG tablet Notable Medication Changes & Reasoning: Start amlodipine 10 mg daily for hypertension Start Coreg 25 mg twice daily for hypertension Consultants Infectious disease Nephrology Endocrinology Procedures Performed Removal of TDC Significant Laboratory/Radiographic Data: See encounter Pending Results at Time of Discharge None Follow Up Appointment(s): No future appointments. Items to Address at Followup Visit: - Repeat CMP/LFTs to evaluate liver enzymes - Repeat blood pressure check and adjust blood pressure regimen if needed - Follow-up with nephrology - Follow-up ophthalmology for left eye floater - Follow-up with hepatobiliary surgery for liver hemangioma imaging Electronically signed by (more content not included)... [facility] 08-28-2024 Note Nephrology Progress Note Following for ESRD Pt seen in room no complaints or concerns Current Inpatient Medications: Reviewed on MAY. Vitals: BP 155/89 Pulse 86 Temp 36.3 ?C (97.3 ?F) (Temporal) Resp 20 Ht 1.803 m (5' 11) Wt 89.7 kg (197 lb 12.8 oz) SpO2 97% BMI 27.59 kg/m? BLOOD PRESSURE RANGE: Systolic (24hrs), Av , Min:125 , Max:172 ; Diastolic (24hrs), Av, Min:72, Max:98 24HR INTAKE/OUTPUT: Intake/Output Summary (Last 24 hours) at 08/28/2024 1244 Last data filed at 08/27/2024 1645 Gross per 24 hour Intake 300 ml Output -- Net 300 ml Physical exam: Constitutional: nad Cardiovascular: Normal S1, S2 without m/r/g Respiratory: CTAB without w/r/r Abdomen: +bs, soft, nt, nd Ext: no lower extremity edema Data: Labs: Recent Labs 08/26/24 0552 08/27/24 02108/28/24 0546 WBC 4.2 6.3 6.4 HGB 9.5* 10.5* 9.3* HCT 28.4* 32.3* 27.9* MCV 90.7 92.0 90.6 PLT 171 215 182 Recent Labs 08/26/24 0552 08/27/24 0216 08/28/24 0546 NA 135* 134* 133* K 4.4 4.0 4.3 CL 102 102 102 CO2 23 24 22 GLUCOSE 248* 168* 271* CALCIUM 9.0 9.5 9.0 PHOS 2.9 2.9 2.7 MG 2.1 2.1 2.0 BUN 30* 36* 31* CREATININE 5.33* 6.32* 4.98* Assessment and Plan: 44 y.o. male with PMH of diabetes, hypertension, end-stage renal disease admitted to the hospital with sepsis. 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 - Bp acceptable - UF as tolerated with HD Hyponatremia. Likely from poor solute intake - should improve with HD - check Sna in AM Anemia in CKD. Hgb below goal - KELLI as OP - follow H&H - blood TF per primary team hgb <7 CKDMBD. Not on binders at this time - check phos in AM - phos gaol 3.5-5.5 MSSA Bacteremia Antimicrobials,Start/End Dates: Cefazolin: 08/24- present Pip-Tazo: 08/23-08/24 Vanc: 08/23 ID following Plan - continue HD MWF, currently on line holiday due to bacteremia will not need line replaced now using AVF -has mature AVF in L Larm, used for HD & tolerated well - monitor volume status electrolytes daily Oneal Diego MD Thank you for allowing me to care for pt. Feel free to reach out with any questions or concerns Kim Blackwell APRN MEDICAL LABORATORY SPECIALIST A-G OCCUPATIONAL THERAPY INSTRUCTOR [facility] [place] [phone] Pt seen and examined independently by me. I reviewed with FRICTION PAINT MACHINE TENDER-MEDICAL LABORATORY SPECIALIST the medical history and the findings on physical examination. I discussed the patient?s diagnosis and concur with the treatment plan as documented in his note. Please call [phone] or message me through [email or web address] with any questions or concerns. [facility] 08-28-2024 History of Present illness Narrative Formatting of this note is different fro m the original. Nephrology Progress Note Following for ESRD Pt seen in room no complaints or concerns Current Inpatient Medications: Reviewed on MAY. Vitals: BP 155/89 Pulse 86 Temp 36.3 C (97.3 F) (Temporal) Resp 20 Ht 1.803 m (5' 11) Wt 89.7 kg (197 lb 12.8 oz) SpO2 97% BMI 27.59 kg/m BLOOD PRESSURE RANGE: Systolic (24hrs), Av , Min:125 , Max:172 ; Diastolic (24hrs), Av, Min:72, Max:98 24HR INTAKE/OUTPUT: Intake/Output Summary (Last 24 hours) at 08/28/2024 1244 Last data filed at 08/27/2024 1645 Gross per 24 hour Intake 300 ml Output -- Net 300 ml Physical exam: Constitutional: nad Cardiovascular: Normal S1, S2 without m/r/g Respiratory: CTAB without w/r/r Abdomen: +bs, soft, nt, nd Ext: no lower extremity edema Data: Labs: Recent Labs 08/26/24 0552 08/27/24 02108/28/24 0546 WBC 4.2 6.3 6.4 HGB 9.5* 10.5* 9.3* HCT 28.4* 32.3* 27.9* MCV 90.7 92.0 90.6 PLT 171 215 182 Recent Labs 08/26/2455108/27/2421508/28/24 0546 NA 135* 134* 133* K 4.4 4.0 4.3 CL 102 102 102 CO2 23 24 22 GLUCOSE 248* 168* 271* CALCIUM 9.0 9.5 9.0 PHOS 2.9 2.9 2.7 MG 2.1 2.1 2.0 BUN 30* 36* 31* CREATININE 5.33* 6.32* 4.98* Assessment and Plan: 44 y.o. male with PMH of diabetes, hypertension, end-stage renal disease admitted to the hospital with sepsis. 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 - Bp acceptable - UF as tolerated with HD Hyponatremia. Likely from poor solute intake - should improve with HD - check Sna in AM Anemia in CKD. Hgb below goal - KELLI as OP - follow H&H - blood TF per primary team hgb <7 CKDMBD. Not on binders at this time - check phos in AM - phos gaol 3.5-5.5 MSSA Bacteremia Antimicrobials,Start/End Dates: Cefazolin: 08/24- present Pip-Tazo: 08/23-08/24 Vanc: 08/23 ID following Plan - continue HD MWF, currently on line holiday due to bacteremia will not need line replaced now using AVF -has mature AVF in L [place]arm, used for HD & tolerated well - monitor volume status electrolytes daily Oneal Diego MD Thank you for allowing me to care for pt. Feel free to reach out with any questions or concerns Kim Blackwell APRN MEDICAL LABORATORY SPECIALIST A-G OCCUPATIONAL THERAPY INSTRUCTOR [facility] [place] [phone] Pt seen and examined independently by me. I reviewed with FRICTION PAINT MACHINE TENDER-MEDICAL LABORATORY SPECIALIST the medical history and the findings on physical examination. I discussed the patient s diagnosis and concur with the treatment plan as documented in his note. Please call [phone] or message me through bitHound with any questions or concerns. Department of Internal Medicine Division of Endocrinology, Diabetes, & Metabolism Endocrinology Note Patient Name: Farrah Gonzales : 1980 AGE: 44 y.o. Room/Bed: [facility]/[address] Admission Date: 08/23/2024 Visit Date: 08/28/2024 Reason for Endocrine Consult: Type 1 diabetes mellitus on insulin pump. Provider/Team Requesting Consult: Brayan Barros PCP: Kristal Sullivan MD Outpt Track Announcer: Yes . Jace Ko MD at outside endocrinology practice. ASSESSMENT: #1. Type 1 diabetes mellitus on insulin pump. #2. End-stage renal disease on hemodialysis with a permacath access. #3. Admitted with sepsis > MSSA BACTEREMIA PLAN: #1 will do 1 to 15 carb ratio scale AND MDSS with meals and nightly #2 Cont lantus to 45 units nightly #3 monitor response and titrate as needed ICU goal <180 GMF goal <150 POCT BG ACHS Hypoglycemia management per protocol Carb controlled diet ANTICIPATED ENDOCRINE HOME GOING RECOMMENDATIONS: Optimized for Discharge from Endocrine standpoint: YES Home Going Endocrine Rx Recommendations-- On insulin pump. 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 SUBJECTIVE/HPI: CHIEF COMPLAINT: No chief complaint on file. Interval history 08/28 Doing well, no concerns overnight. Tolerating PO diet and insulin regiment without issues. 08/27 Doing well, no concerns overnight. Showering initially. Still tolerating PO diet and insulin regiment without issue 08/26 No acute events. Doing well. No concerns today. Walking curry without issue when seen. Tolerating PO diet and subcutaneous insulin without issue 08/25 Patient doing well when seen. No complaints. States he ended up keeping pump on overnight but it will around 1500 today. Tolerating PO intake. No issues with receiving subcutaneous insulin 08/24 - got HD yesterday, Nephrology following - when seen, resting in bed, alert and oriented but fatigued, no acute concerns, no additional insulin boluses programmed overnight, states he ran in 200s HPI Farrah is a 44-year-old white male who was admitted with sepsis, to determine etiology. He has a history of type 1 diabetes mellitus since age 18. He has been on an OmniPod for the last 3 years, with a [employer] G6 CGM. He uses auto mode on his pump. Insulin pump settings as follows: at home Basal rate 1.2 units/h Carb ratio 1 unit for every 50 g Insulin sensitivity factor I unit for every 50 above 110. Insulin active time 2.5 hours Insulin type NovoLog Total daily dose the last 3 days between 40 to 60 units. 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 He has been on hemodialysis since December 2023. Denies history of diabetic retinopathy or neuropathy. Denies history of thyroid disorder. Type of DM: 1 Onset of DM: Age 18 Home DM Medication Regimen: As above DM control (last A1c/glucose data): A1C 8.8 06/15/24 Glucose Date/Time Value Ref Range Status 08/28/2024 09:14 AM 229 (H) 70 - 100 mg/dL Final 08/27/2024 09:28 PM 345 (H) 70 - 100 mg/dL Final 08/27/2024 05:41 PM 209 (H) 70 - 100 mg/dL Final 08/27/2024 11:01 AM 260 (H) 70 - 100 mg/dL Final 08/27/2024 08:01 AM 79 70 - 100 mg/dL Final 08/26/2024 08:42 PM 212 (H) 70 - 100 mg/dL Final Review of Systems Constitutional: Positive for fatigue. Negative for chills and fever. Respiratory: Negative for cough and shortness of breath. Cardiovascular: Negative for chest pain and leg swelling. Gastrointestinal: Negative for abdominal distention, abdominal pain, diarrhea, nausea and vomiting. Genitourinary: Negative for difficulty urinating and dysuria. Psychiatric/Behavioral: Negative for confusion. ROS negative except for those mentioned in HPI. OBJECTIVE: Vitals: 08/27/24 1639 08/27/24 1645 08/27/24 1738 08/27/242015 BP: 156/90 152/86 (!) 172/89 149/84 BP Location: Right arm Patient Position: Lying Pulse: 91 90 98 86 Resp: 16 20 20 Temp: 37 C (98.6 F) 36.6 C (97.9 F) 36.3 C (97.3 F) TempSrc: Temporal Temporal SpO2: 95% 96% 96% Weight: Height: Physical Exam Constitutional: General: He is not in acute distress. Cardiovascular: Rate and Rhythm: Normal rate and regular rhythm. Pulses: Normal pulses. Heart sounds: No murmur heard. Pulmonary: Effort: Pulmonary effort is normal. No respiratory distress. Breath sounds: Normal breath sounds. No wheezing. Abdominal: General: Abdomen is flat. Bowel sounds are normal. There is no distension. Tenderness: There is no abdominal tenderness. Musculoskeletal: Right lower leg: No edema. Left lower leg: No edema. Skin: General: Skin is warm and dry. Neurological: Mental Status: He is alert. 24 hour intake/output: Intake/Output Summary (Last 24 hours) at 08/28/2024 0934 Last data filed at 08/27/2024 1645 Gross per 24 hour Intake 300 ml Output -- Net 300 ml Diet: Adult diet Regular Medications (as per EMR): HomeMeds: No current outpatient medications Scheduled Meds:Scheduled Meds[1] Continuous Infusions:Continuous Meds[2] PRN Meds:PRN Meds[3] Diagnostic Workup: I reviewed pertinent Laboratory results, Radiographic results, and Other Clinical Notes at the time of today's encounter. Labs: No components found for: LABA1C No components found for: EAG Lab Results Component Value Date NA 133 (L) 08/28/2024 K 4.3 08/28/2024 CL 102 08/28/2024 CO2 22 08/28/2024 BUN 31 (H) 08/28/2024 CREATININE 4.98 (H) 08/28/2024 GLUCOSE 271 (H) 08/28/2024 CALCIUM 9.0 08/28/2024 No results found for: CHLPL, CHOL No results found for: TRIG No results found for: HDL No results found for: LDLCALC No results found for: VLDL No results found for: CHOLHDLRATIO No results found for: [id number] Lab Results Component Value Date TSH 2.48 08/23/2024 Radiology reportsas per the Radiologist Radiology: CT chest abdomen pelvis with contrast Result Date: 08/23/2024 Patient Name: FARRAH GONZALES : 1980 [facility]#: [id number] Exam Date/Time: 08/23/2024 14:56 Procedure: CT CHEST ABDOMEN PELVIS W CONTRAST Ordering Provider: TRUJILLO CLAIRE Reason For Exam: nausea/vomiting, sepsis of unknown origin HISTORY: Nausea vomiting sepsis of unknown origin After intravenous contrast, sections performed through the chest abdomen pelvis. Dose reduction was employed with automated exposure control. No comparison CT studies. FINDINGS: 1. CT CHEST --- There are no definite infiltrates masses or pleural effusions Right jugular tunneled dialysis catheter, left coronary artery stent with calcified plaquing. 2. CT ABDOMEN--- There is a heterogeneous large 7.7 cm MASS right lobe liver. Aortoiliac calcified plaquing with probable punctate areas of left renal artery calcification. Question of punctate gallbladder calculi or hyperdense small areas of sludge. 3. CT PELVIS--- There is a normal appendix with no free fluid or free air. Moderate amount of stool in colon with few small scattered colonic diverticuli. Report Dictated on Electronically Signed By: Julian Guillermo MD Electronically Signed Date/Time: 08/23/2024 8:42 PM EDT ECG 12 lead Sinus tachycardia Nonspecific T abnormalities, lateral leads XR chest 1 view Result Date: 08/23/2024 [facility] Name[facility] 1980 [id number] Exam Date/Time: 08/23/2024 13:22 Procedure: XR CHEST 1 VIEW Ordering Provider: STEEN SHELDON Reason For Exam: concern for pna PORTABLE CHEST X-RAY CLINICAL INDICATION: concern for pna A portable frontal view of the chest was obtained. COMPARISON: None FINDINGS: The cardiac silhouette is within normal limits. Right jugular dialysis catheter terminates near the junction of the superior vena cava and right atrium. No focal consolidation is seen within the lungs. There is no large pleural effusion or pneumothorax. The bony structures of the chest are unremarkable as visualized. No acute cardiopulmonary disease. Report Dictated on Electronically Signed By: Anirudh Christie MD Electronically Signed Date/Time: 08/23/2024 1:40 PM EDT ECG 12 lead Sinus tachycardia Consider anterior infarct Nonspecific T abnormalities, lateral leads History/Other: Past Medical History: Medical History[4] Past Surgical History: Surgical History[5] Allergy(ies): Allergies[6] Family History: Family History[7] Social History: Social History[8] Portions of the information within this encounter were entered using an electronic dictation system. Best attempts were made to edit/proofread the information prior to note completion. Despite the review of information, some errors may remain. If there are questions related to the information contained within the note please contact the signing physician directly. I spent 35 minutes with the pt which involved coordination of care, medical evaluation, review of records, and/or counseling of the pt regarding his/her condition/disease state/prognosis on the date of this note. [1] amLODIPine, 10 mg, Oral, Daily aspirin, 81 mg, Oral, Daily carvedilol, 25 mg, Oral, BID WC ceFAZolin, 1,000 mg, IntraVENous, q24h clopidogrel, 75 mg, Oral, Daily heparin, 5,000 Units, SubCUTAneous, 3 times per day insulin glargine, 45 Units, SubCUTAneous, Nightly insulin lispro, 0-10 Units, SubCUTAneous, TID WC insulin lispro, 0-12 Units, SubCUTAneous, TID WC And insulin lispro, 0-12 Units, SubCUTAneous, Nightly methyl salicylate-menthol, , Topical, Daily pantoprazole, 40 mg, Oral, qAM AC rosuvastatin, 20 mg, Oral, Nightly [2] [3] PRN medications: acetaminophen, calcium carbonate, dextrose, dextrose, diphenhydrAMINE-zinc acetate, glucagon (rDNA), glucose, heparin, heparin, Lidocaine, ondansetron ODT OR ondansetron, polyethylene glycol (PEG) 3350, prochlorperazine OR prochlorperazine OR prochlorperazine [4] Past Medical History: Diagnosis Date End stage renal failure on dialysis (HCC) Hypertension Type 1 diabetes mellitus (HCC) [5] History reviewed. No pertinent surgical history. [6] No Known Allergies [7] No family history on file. [8] Social History Tobacco Use Smoking status: Never Smokeless tobacco: Never Substance Use Topics Alcohol use: Never Drug use: Never Med Team Progress Note Farrah Gonzales : 1980(44 y.o.) Date: August 28, 2024 Med Team: Jamarcus Attending: Vadim Chief Complaint: fever Subjective: - No acute events overnight. - Currently, resting comfortably in bed. Having one soft BM daily. No n/v/d. Ordered breakfast and states he is tolerating full diet. Of note patient made a comment about his left eye developing a floater after he vomited prior to admission. This is the first time the primary team has been made aware of this symptom. He says that this floaters made worse by rapid eye movement. He says that it does not cause significant impairment in his visual solis but is noticeable. No pain with eye movement, and the eye is nonpainful. Review of Systems Constitutional: Negative for chills and fever. Cardiovascular: Negative for chest pain. Gastrointestinal: Negative for diarrhea, nausea and vomiting. Scheduled Meds:Scheduled Meds[1] Continuous Infusions:Continuous Meds[2] Objective: BP 149/84 Pulse 86 Temp 36.3 C (97.3 F) (Temporal) Resp 20 Ht 5' 11 (1.803 m) Wt 197 lb 12.8 oz (89.7 kg) SpO2 96% BMI 27.59 kg/m Physical Exam Constitutional: General: He is not in acute distress. HENT: Mouth/Throat: Mouth: Mucous membranes are moist. Cardiovascular: Rate and Rhythm: Normal rate and regular rhythm. Pulses: Normal pulses. Heart sounds: No murmur heard. Pulmonary: Effort: Pulmonary effort is normal. No respiratory distress. Breath sounds: Normal breath sounds. No wheezing. Abdominal: General: There is no distension. Palpations: Abdomen is soft. Tenderness: There is no abdominal tenderness. Musculoskeletal: Right lower leg: No edema. Left lower leg: No edema. Skin: General: Skin is warm and dry. Neurological: Mental Status: He is alert. Select Recent Labs BMP: Recent Labs 08/26/24 0552 08/27/24 02108/28/24 0546 NA 135* 134* 133* K 4.4 4.0 4.3 CL 102 102 102 CO2 23 24 22 BUN 30* 36* 31* CREATININE 5.33* 6.32* 4.98* CALCIUM 9.0 9.5 9.0 MG 2.1 2.1 2.0 PHOS 2.9 2.9 2.7 LFTs: Recent Labs 08/26/24 0508/27/2421508/28/24 0546 AST 114* 114* 64* 48* ALT 109* 109* 70* 40* PROT 6.3* 6.3* 7.0 6.3* ALBUMIN 2.7* 2.7* 3.2* 2.8* BILITOT 0.3 0.3 0.3 0.2 ALKPHOS 206* 206* 222* 176* Glucose: Recent Labs 08/26/24 0552 08/26/24 0730 08/26/24 1039 08/26/24 1702 08/26/24 2042 08/27/24 0216 08/27/24 0801 08/27/24 1101 08/27/24 1741 08/27/24 2128 08/28/24 0546 GLUCOSE 248* -- -- -- -- 168* -- -- -- -- 271* POCGLU -- 247* 359* 169* 212* -- 79 260* 209* 345* -- Procal: No results for input(s): PROCAL in the last 72 hours. CBC: Recent Labs 08/26/24 0552 08/27/24 02108/28/24 0546 WBC 4.2 6.3 6.4 HGB 9.5* 10.5* 9.3* HCT 28.4* 32.3* 27.9* PLT 171 215 182 MCV 90.7 92.0 90.6 RDW 12.8 12.8 12.6 ABGs: No results for input(s): PHART, [id number], PO2ART, KQT6XHK, SO2ART, F5VNRKCV in the last 72 hours. Lactic Acid: No results for input(s): LACTATE in the last 72 hours. INR: No results for input(s): INR in the last 72 hours. Cardiac Injury Profile: No results for input(s): CKTOTAL, CKMB, TROPONINI, TROPHSBASE, TROPHS2, BNP in the last 72 hours. Labs in Last 3 months: Lab Results Component Value Date TSH 2.48 08/23/2024 Assessment and Plan: MSSA Bacteremia from tunneled HD line Sepsis, Resolved Plan: - Continue Ancef - Follow-up blood cultures for 72 hours, this will be 08/28 in the afternoon currently no growth to date at 48 hours - ID will give Ancef 2g/2g/3g MWF post-HD for 4 weeks, EOT 09/22/24, dialysis center able to accommodate - CBC, CMP daily - Tylenol 1g TID for pain - encourage oral intake Chest Pain-resolved Hx of STEMI s/p PAXTON LAD (03/2024) Likely due to acid reflux from emesis given nature of pain -on tele, continue to monitor -currently on Plavix and ASA, Crestor 20 mg Right Lobe Liver Mass, suspected hemangioma Elevated liver enzymes - Per HPB, MRI from [place] shows liver hemangioma so no surgical intervention needed - Monitor and trend daily LFTs Left eye floater Patient reports a black floater in his left eye that he said developed after he vomited prior to admission. Primary team first made aware of this on 08/28. He states eye is nonpainful and does not cause significant impairment in his visual solis. He states that it is made worse by rapid movements of his eyes. Plan - Will have him follow-up with ophthalmology as an outpatient Resolved Problems: Diarrhea, resolved Intractable Nausea/Vomiting, resolved Unclear etiology. C. Diff by PCR negative. Likely due to abx use. - Imodium as needed - Compazine as needed Chronic Problems and Follow Up Items: Type 1 Diabetes Last known A1c 06/15/24 8.8, currently on pancreatic transplant list -Endocrinology on board for management of insulin -Currently on subcutaneous insulin with medium dose sliding scale and Lantus 50 units nightly -Hypoglycemia Protocol End-Stage Renal Disease on HD Currently on renal transplant list -continue to monitor daily labs, BMP, mag, Phos -Dialysis MWF Hypertension HLN -Continue home amlodipine 10 mg -Increasing Coreg to 25 mg twice daily given persistent hypertension Dispo and Barriers to Discharge: Home pending 72-hour blood culture clearance with IV antibiotics - Goals of Care: FULL CODE - DVT Prophylaxis: Heparin - GI Prophylaxis: Protonix daily - Diet: General [1] amLODIPine, 10 mg, Oral, Daily aspirin, 81 mg, Oral, Daily carvedilol, 25 mg, Oral, BID WC ceFAZolin, 1,000 mg, IntraVENous, q24h clopidogrel, 75 mg, Oral, Daily heparin, 5,000 Units, SubCUTAneous, 3 times per day insulin glargine, 45 Units, SubCUTAneous, Nightly insulin lispro, 0-10 Units, SubCUTAneous, TID WC insulin lispro, 0-12 Units, SubCUTAneous, TID WC And insulin lispro, 0-12 Units, SubCUTAneous, Nightly methyl salicylate-menthol, , Topical, Daily pantoprazole, 40 mg, Oral, qAM AC rosuvastatin, 20 mg, Oral, Nightly [2] Cosigned by Maria Luz Trujillo MD at 08/28/2024 10:38 AM EDT Associated attestation - Maria Luz Trujillo MD - 08/28/2024 10:38 AM EDT Patient seen and examined personally during bedside teaching rounds (Date of Service: 08/28/24). I agree with the findings and plan of care as documented in the resident's note. I have edited the resident note below, and my thoughts are demarcated in Green. Doing well. Shares with our tea for the first time that he has had a floater present in his eye since prior to admission-this was unknown to us until today. Plan for optho referral on DC. Open to DC today if we can arrange transport. Await 08/25 Bcx NG x72h (1/2 sets already negative, awaiting second set), and possible DC later today. Has OP Ancef arranged with HD center EOT 09/22. 7AM-5PM: contact resident on [facility] Med D (find by hovering over attending's name on left side of patient's chart) 5PM-7AM: contact AI3 res Images from the original note were not included. [facility] - Infectious Diseases Advanced Practice Provider Progress Note Subjective: Following patient for MSSA bacteremia s/p TDC removal 08/24. Notes reviewed. Patient reports feeling well overall with no new issues or complaints. Denies fever/chills, CP, SOB, N/V, abdominal pain, diarrhea, constipation, and any new urinary changes. No other new exacerbating or alleviating factors. Objective: Vitals: Patient Vitals for the past 24 hrs: BP Temp Temp src Pulse Resp SpO2 08/27/24 1545 136/88 -- -- 93 -- -- 08/27/24 1530 142/83 -- -- 88 -- -- 08/27/24 1518 158/98 -- -- 92 -- -- 08/27/24 1500 158/88 -- -- 91 -- -- 08/27/24 1445 141/84 -- -- 90 -- -- 08/27/24 1431 137/80 -- -- 82 -- -- 08/27/24 1415 141/84 -- -- 83 -- -- 08/27/24 1400 141/85 -- -- 91 -- -- 08/27/24 1345 151/86 -- -- 84 -- -- 08/27/24 1341 148/82 -- -- 90 -- -- 08/27/24 1339 149/86 -- -- 88 -- -- 08/27/24 1330 147/85 36.4 C (97.6 F) -- 93 16 95 % 08/27/24 0733 (!) 185/99 36.4 C (97.5 F) Temporal 95 -- 98 % 08/26/24 2353 (!) 163/81 36.4 C (97.6 F) Temporal 92 16 97 % 08/26/242026 157/94 36.4 C (97.5 F) Temporal 99 18 96 % 08/26/24 1705 (!) 162/88 36.6 C (97.9 F) Temporal 92 20 96 % Physical Exam: Physical Exam Vitals and nursing note reviewed. Constitutional: General: He is not in acute distress. Appearance: Normal appearance. He is normal weight. He is not ill-appearing. Comments: NAD laying in bed. Interactive, cooperative, conversant HENT: Head: Normocephalic and atraumatic. Right Ear: External ear normal. Left Ear: External ear normal. Nose: Nose normal. Mouth/Throat: Mouth: Mucous membranes are moist. Pharynx: Oropharynx is clear. Eyes: Extraocular Movements: Extraocular movements intact. Conjunctiva/sclera: Conjunctivae normal. Pupils: Pupils are equal, round, and reactive to light. Cardiovascular: Rate and Rhythm: Normal rate and regular rhythm. Pulses: Normal pulses. Heart sounds: Normal heart sounds. Pulmonary: Effort: Pulmonary effort is normal. Breath sounds: Normal breath sounds. No wheezing, rhonchi or rales. Comments: Breathing comfortably on room air. No wheezes, rales, rhonchi Abdominal: General: Abdomen is flat. Bowel sounds are normal. There is no distension. Palpations: Abdomen is soft. Tenderness: There is no abdominal tenderness. There is no guarding. Musculoskeletal: Right lower leg: No edema. Left lower leg: No edema. Skin: General: Skin is warm and dry. Comments: R chest TDC removal site dressed. L AVF Neurological: General: No focal deficit present. Mental Status: He is alert and oriented to person, place, and time. Psychiatric: Mood and Affect: Mood normal. Behavior: Behavior normal. Labs: Recent Labs 08/25/24 0519 08/26/24 0552 08/27/24 0216 NA 135* 135* 134* K 3.5 4.4 4.0 CL 98 102 102 CO2 24 23 24 BUN 43* 30* 36* CREATININE 7.05* 5.33* 6.32* GLUCOSE 128* 248* 168* CALCIUM 9.5 9.0 9.5 PROT 6.7 6.3* 6.3* 7.0 BILITOT 0.4 0.3 0.3 0.3 ALKPHOS 128 206* 206* 222* AST 110* 114* 114* 64* ALT 63* 109* 109* 70* Recent Labs 08/25/24 0519 08/26/24 0552 08/27/24 0216 WBC 6.8 4.2 6.3 HGB 9.6* 9.5* 10.5* HCT 28.2* 28.4* 32.3* PLT 171 171 215 LYMPHOPCT 10.0* 24.8 21.4 MONOPCT 7.4 15.0* 11.0 BASOPCT 0.4 1.0 0.6 NEUTROABS 5.3 2.3 3.8 Micro: No results for input(s): COVID19 in the last 72 hours. 08/23 Blood Cx: 2/ MSSA 08/23 Resp PCR panel: neg 08/24 Strep/Legionella Ag: neg 08/24 Sputum Cx: cancelled dt poor quality 08/25 Blood Cx: NGTD 08/25 C diff PCR: neg Lines: R chest TDC L AVF Radiography/Echo/Other: 08/23 CXR No acute cardiopulmonary disease. 08/23 CT chest/abd/pelvis 1. CT CHEST --- There are no definite infiltrates masses or pleural effusions Right jugular tunneled dialysis catheter, left coronary artery stent with calcified plaquing. 2. CT ABDOMEN--- There is a heterogeneous large 7.7 cm MASS right lobe liver. Aortoiliac calcified plaquing with probable punctate areas of left renal artery calcification. Question of punctate gallbladder calculi or hyperdense small areas of sludge. 3. CT PELVIS--- There is a normal appendix with no free fluid or free air. Moderate amount of stool in colon with few small scattered colonic diverticuli. 08/25 TTE Left Ventricle: Left ventricle size is normal. Mildly increased wall thickness. Normal left ventricular systolic function. EF by 2D Simpsons Biplane is 66%. Global longitudinal strain is -10.8%. Normal wall motion. Right Ventricle: Right ventricle size is normal. Normal systolic function. No significant valvular abnormalities. Antimicrobials,Start/End Dates: Cefazolin: 08/24- present Pip-Tazo: 08/23-08/24 Vanc: 08/23 Impression: MSSA bacteremia Tunneled line removal 08/24 ESRD L AVF Liver mass on CT scan T1DM Plan: Following patient for MSSA bacteremia suspected 2/2 TDC s/p line removal 08/24. 08/25 Blood Cx NGTD and TTE negative. Continue Cefazolin 1g IV q24h while in house. On discharge, transition to Cefazolin 2g/2g/3g post-HD dosing through 09/22/24 to complete a 4 week course from Blood Cx clearance. OPAT complete and under media tab. Note, AVF now being utilized for HD so tunneled line does not need to be replaced at this time. Monitor infectious parameters. Okay for next phase of care from ID standpoint once Blood Cx negative x72 hours. Based on diagnoses and management, combination of acute and chronic problems, exacerbations and/or acuity, this visit should be considered to be of moderate complexity. Tracy GEORGE PA-C [facility] [place] Nephrology Progress Note Following for ESRD Pt seen in room no complaints or concerns HD later today Current Inpatient Medications: Reviewed on MAY. Vitals: BP (!) 185/99 Pulse 95 Temp 36.4 C (97.5 F) (Temporal) Resp 16 Ht 1.803 m (5' 11) Wt 89.7 kg (197 lb 12.8 oz) SpO2 98% BMI 27.59 kg/m BLOOD PRESSURE RANGE: Systolic (24hrs), Av , Min:140 , Max:185 ; Diastolic (24hrs), Av, Min:78, Max:99 24HR INTAKE/OUTPUT: No intake or output data in the 24 hours ending 08/27/24 0855 Physical exam: Constitutional: nad Cardiovascular: Normal S1, S2 without m/r/g Respiratory: CTAB without w/r/r Abdomen: +bs, soft, nt, nd Ext: no lower extremity edema Data: Labs: Recent Labs 08/25/24 0519 08/26/24 0552 08/27/24 0216 WBC 6.8 4.2 6.3 HGB 9.6* 9.5* 10.5* HCT 28.2* 28.4* 32.3* MCV 89.8 90.7 92.0 PLT 171 171 215 Recent Labs 08/25/24 0519 08/26/24 0552 08/27/24 0216 NA 135* 135* 134* K 3.5 4.4 4.0 CL 98 102 102 CO2 24 23 24 GLUCOSE 128* 248* 168* CALCIUM 9.5 9.0 9.5 PHOS 3.9 2.9 2.9 MG 2.1 2.1 2.1 BUN 43* 30* 36* CREATININE 7.05* 5.33* 6.32* Assessment and Plan: 44 y.o. male with PMH of diabetes, hypertension, end-stage renal disease admitted to the hospital with sepsis. 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 - Bp acceptable - UF as tolerated with HD Hyponatremia. Likely from poor solute intake - should improve with HD - check Sna in AM Anemia in CKD. Hgb below goal - KELLI as OP - follow H&H - blood TF per primary team hgb <7 CKDMBD. Not on binders at this time - check phos in AM - phos gaol 3.5-5.5 MSSA Bacteremia Antimicrobials,Start/End Dates: Cefazolin: 08/24- present Pip-Tazo: 08/23-08/24 Vanc: 08/23 ID following Plan - continue HD MWF, currently on line holiday due to bacteremia will not need line rep;laced now using AVF -has mature AVF in L Larm, used for HD & tolerated well -hd later today - monitor volume status electrolytes daily Thank you for allowing me to care for pt. Feel free to reach out with any questions or concerns Kim Blackwell APRN MEDICAL LABORATORY SPECIALIST A-G OCCUPATIONAL THERAPY INSTRUCTOR [facility] [place] [phone] Pt seen and examined independently by me. I reviewed with FRICTION PAINT MACHINE TENDER-MEDICAL LABORATORY SPECIALIST the medical history and the findings on physical examination. I discussed the patient s diagnosis and concur with the treatment plan as documented in his note. Please call [phone] or message me through [email or web address] with any questions or concerns. Department of Internal Medicine Division of Endocrinology, Diabetes, & Metabolism Endocrinology Note Patient Name: Farrah Gonzales : 1980 AGE: 44 y.o. Room/Bed: [facility]/[address] Admission Date: 08/23/2024 Visit Date: 08/27/2024 Reason for Endocrine Consult: Type 1 diabetes mellitus on insulin pump. Provider/Team Requesting Consult: Brayan Barros PCP: Kristal Sullivan MD Outpt Track Announcer: Yes . Jace Ko MD at outside endocrinology practice. ASSESSMENT: #1. Type 1 diabetes mellitus on insulin pump. #2. End-stage renal disease on hemodialysis with a permacath access. #3. Admitted with sepsis > MSSA BACTEREMIA PLAN: #1. Transitioned to subcutaneous insulin for now #2 will do 1 to 20 carb ratio scale AND MDSS with meals and nightly - decrease lantus to 45 units nightly #3 monitor response and titrate as needed ICU goal <180 GMF goal <150 POCT BG ACHS Hypoglycemia management per protocol Carb controlled diet ANTICIPATED ENDOCRINE HOME GOING RECOMMENDATIONS: Optimized for Discharge from Endocrine standpoint: No Home Going Endocrine Rx Recommendations-- On insulin pump. 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 SUBJECTIVE/HPI: CHIEF COMPLAINT: No chief complaint on file. Interval history 08/27 Doing well, no concerns overnight. Showering initially. Still tolerating PO diet and insulin regiment without issue 08/26 No acute events. Doing well. No concerns today. Walking curry without issue when seen. Tolerating PO diet and subcutaneous insulin without issue 08/25 Patient doing well when seen. No complaints. States he ended up keeping pump on overnight but it will around 1500 today. Tolerating PO intake. No issues with receiving subcutaneous insulin 5/27 - got HD yesterday, Nephrology following - when seen, resting in bed, alert and oriented but fatigued, no acute concerns, no additional insulin boluses programmed overnight, states he ran in 200s HPI Farrah is a 44-year-old white male who was admitted with sepsis, to determine etiology. He has a history of type 1 diabetes mellitus since age 18. He has been on an OmniPod for the last 3 years, with a Dexcom G6 CGM. He uses auto mode on his pump. Insulin pump settings as follows: at home Basal rate 1.2 units/h Carb ratio 1 unit for every 50 g Insulin sensitivity factor I unit for every 50 above 110. Insulin active time 2.5 hours Insulin type NovoLog Total daily dose the last 3 days between 40 to 60 units. 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 He has been on hemodialysis since December 2023. Denies history of diabetic retinopathy or neuropathy. Denies history of thyroid disorder. Type of DM: 1 Onset of DM: Age 18 Home DM Medication Regimen: As above DM control (last A1c/glucose data): A1C 8.8 06/15/24 Glucose Date/Time Value Ref Range Status 08/27/2024 08:01 AM 79 70 - 100 mg/dL Final 08/26/2024 08:42 PM 212 (H) 70 - 100 mg/dL Final 08/26/2024 05:02 PM 169 (H) 70 - 100 mg/dL Final 08/26/2024 10:39 AM 359 (H) 70 - 100 mg/dL Final 08/26/2024 07:30 AM 247 (H) 70 - 100 mg/dL Final 08/25/2024 10:57 PM 349 (H) 70 - 100 mg/dL Final Review of Systems Constitutional: Positive for fatigue. Negative for chills and fever. Respiratory: Negative for cough and shortness of breath. Cardiovascular: Negative for chest pain and leg swelling. Gastrointestinal: Negative for abdominal distention, abdominal pain, diarrhea, nausea and vomiting. Genitourinary: Negative for difficulty urinating and dysuria. Psychiatric/Behavioral: Negative for confusion. ROS negative except for those mentioned in HPI. OBJECTIVE: Vitals: 08/26/24 1705 08/26/24 2027 08/26/24 2353 08/27/24 0733 BP: (!) 162/88 157/94 (!) 163/81 (!) 185/99 BP Location: Right arm Right arm Right arm Patient Position: Sitting Lying Lying Pulse: 92 99 92 95 Resp: 20 18 16 Temp: 36.6 C (97.9 F) 36.4 C (97.5 F) 36.4 C (97.6 F) 36.4 C (97.5 F) TempSrc: Temporal Temporal Temporal Temporal SpO2: 96% 96% 97% 98% Weight: Height: Physical Exam Constitutional: General: He is not in acute distress. Cardiovascular: Rate and Rhythm: Regular rhythm. Tachycardia present. Pulses: Normal pulses. Heart sounds: No murmur heard. Pulmonary: Effort: Pulmonary effort is normal. No respiratory distress. Breath sounds: Normal breath sounds. No wheezing. Abdominal: General: Abdomen is flat. Bowel sounds are normal. There is no distension. Tenderness: There is no abdominal tenderness. Musculoskeletal: Right lower leg: No edema. Left lower leg: No edema. Skin: General: Skin is warm and dry. Neurological: Mental Status: He is alert. 24 hour intake/output:No intake or output data in the 24 hours ending 08/27/24 0812 Diet: Adult diet Regular Medications (as per EMR): HomeMeds: No current outpatient medications Scheduled Meds:Scheduled Meds[1] Continuous Infusions:Continuous Meds[2] PRN Meds:PRN Meds[3] Diagnostic Workup: I reviewed pertinent Laboratory results, Radiographic results, and Other Clinical Notes at the time of today's encounter. Labs: No components found for: LABA1C No components found for: EAG Lab Results Component Value Date NA 134 (L) 08/27/2024 K 4.0 08/27/2024 CL 102 08/27/2024 CO2 24 08/27/2024 BUN 36 (H) 08/27/2024 CREATININE 6.32 (H) 08/27/2024 GLUCOSE 168 (H) 08/27/2024 CALCIUM 9.5 08/27/2024 No results found for: CHLPL, CHOL No results found for: TRIG No results found for: HDL No results found for: LDLCALC No results found for: VLDL No results found for: CHOLHDLRATIO No results found for: [id number] Lab Results Component Value Date TSH 2.48 08/23/2024 Radiology reportsas per the Radiologist Radiology: CT chest abdomen pelvis with contrast Result Date: 08/23/2024 [facility] 1980 [id number] Exam Date/Time: 08/23/2024 14:56 Procedure: CT CHEST ABDOMEN PELVIS W CONTRAST Ordering Provider: TRUJILLO CLAIRE Reason For Exam: nausea/vomiting, sepsis of unknown origin HISTORY: Nausea vomiting sepsis of unknown origin After intravenous contrast, sections performed through the chest abdomen pelvis. Dose reduction was employed with automated exposure control. No comparison CT studies. FINDINGS: 1. CT CHEST --- There are no definite infiltrates masses or pleural effusions Right jugular tunneled dialysis catheter, left coronary artery stent with calcified plaquing. 2. CT ABDOMEN--- There is a heterogeneous large 7.7 cm MASS right lobe liver. Aortoiliac calcified plaquing with probable punctate areas of left renal artery calcification. Question of punctate gallbladder calculi or hyperdense small areas of sludge. 3. CT PELVIS--- There is a normal appendix with no free fluid or free air. Moderate amount of stool in colon with few small scattered colonic diverticuli. Report Dictated on Electronically Signed By: Julian Guillermo MD Electronically Signed Date/Time: 08/23/2024 8:42 PM EDT ECG 12 lead Sinus tachycardia Nonspecific T abnormalities, lateral leads XR chest 1 view Result Date: 08/23/2024 [facility] Name[facility] 1980 [id number] Exam Date/Time: 08/23/2024 13:22 Procedure: XR CHEST 1 VIEW Ordering Provider: STEEN SHELDON Reason For Exam: concern for pna PORTABLE CHEST X-RAY CLINICAL INDICATION: concern for pna A portable frontal view of the chest was obtained. COMPARISON: None FINDINGS: The cardiac silhouette is within normal limits. Right jugular dialysis catheter terminates near the junction of the superior vena cava and right atrium. No focal consolidation is seen within the lungs. There is no large pleural effusion or pneumothorax. The bony structures of the chest are unremarkable as visualized. No acute cardiopulmonary disease. Report Dictated on Electronically Signed By: Anirudh Christie MD Electronically Signed Date/Time: 08/23/2024 1:40 PM EDT ECG 12 lead Sinus tachycardia Consider anterior infarct Nonspecific T abnormalities, lateral leads History/Other: Past Medical History: Medical History[4] Past Surgical History: Surgical History[5] Allergy(ies): Allergies[6] Family History: Family History[7] Social History: Social History[8] Portions of the information within this encounter were entered using an electronic dictation system. Best attempts were made to edit/proofread the information prior to note completion. Despite the review of information, some errors may remain. If there are questions related to the information contained within the note please contact the signing physician directly. I spent 30 minutes with the pt which involved coordination of care, medical evaluation, review of records, and/or counseling of the pt regarding his/her condition/disease state/prognosis on the date of this note. [1] amLODIPine, 10 mg, Oral, Daily aspirin, 81 mg, Oral, Daily carvedilol, 12.5 mg, Oral, BID WC ceFAZolin, 1,000 mg, IntraVENous, q24h clopidogrel, 75 mg, Oral, Daily heparin, 5,000 Units, SubCUTAneous, 3 times per day insulin glargine, 50 Units, SubCUTAneous, Nightly insulin lispro, 0-10 Units, SubCUTAneous, TID WC insulin lispro, 0-12 Units, SubCUTAneous, TID WC And insulin lispro, 0-12 Units, SubCUTAneous, Nightly methyl salicylate-menthol, , Topical, Daily pantoprazole, 40 mg, Oral, qAM AC rosuvastatin, 20 mg, Oral, Nightly [2] [3] PRN medications: acetaminophen, calcium carbonate, dextrose, dextrose, diphenhydrAMINE-zinc acetate, glucagon (rDNA), glucose, heparin, heparin, Lidocaine, ondansetron ODT OR ondansetron, polyethylene glycol (PEG) 3350, prochlorperazine OR prochlorperazine OR prochlorperazine [4] Past Medical History: Diagnosis Date End stage renal failure on dialysis (HCC) Hypertension Type 1 diabetes mellitus (HCC) [5] History reviewed. No pertinent surgical history. [6] No Known Allergies [7] No family history on file. [8] Social History Tobacco Use Smoking status: Never Smokeless tobacco: Never Substance Use Topics Alcohol use: Never Drug use: Never Cosigned by Akbar Brown at 08/27/2024 1:42 PM EDT Associated attestation - Akbar Brown - 08/27/2024 1:42 PM EDT Endocrinology Attending I performed a history and physical examination of the patient and discussed management with the resident. I reviewed the resident's note and agree with the documented findings and plan of care. I spent over 51% total time 35 minutes counseling and coordinating care. I have reviewed diagnostic workup and images. I have reviewed outpatient and inpatient notes. I have discussed the case with the primary team and the nurse taking care of the patient. Additional Notes: Insulin requirements decreasing. Change Lantus 45 units/d Do not hold meal time insulins. Will follow. Med Team Progress Note Farrah Gonzales : 1980(44 y.o.) Date: August 27, 2024 Med Team: Jamarcus Attending: Vadim Chief Complaint: fever Subjective: - No acute events overnight. - Currently, patient resting comfortably in bed. States he had 1 bowel movement yesterday that was soft. Overall, denies any fevers, chills, nausea, vomiting. States he feels well overall and has no new complaints. Review of Systems Constitutional: Negative for chills and fever. Cardiovascular: Negative for chest pain. Gastrointestinal: Negative for abdominal pain. Neurological: Negative for headaches. Scheduled Meds:Scheduled Meds[1] Continuous Infusions:Continuous Meds[2] Objective: BP (!) 185/99 Pulse 95 Temp 36.4 C (97.5 F) (Temporal) Resp 16 Ht 5' 11 (1.803 m) Wt 197 lb 12.8 oz (89.7 kg) SpO2 98% BMI 27.59 kg/m Physical Exam Constitutional: General: He is not in acute distress. HENT: Mouth/Throat: Mouth: Mucous membranes are moist. Eyes: General: No scleral icterus. Cardiovascular: Rate and Rhythm: Regular rhythm. Tachycardia present. Pulses: Normal pulses. Heart sounds: No murmur heard. Pulmonary: Effort: Pulmonary effort is normal. No respiratory distress. Breath sounds: Normal breath sounds. No wheezing. Abdominal: General: Abdomen is flat. Tenderness: There is no abdominal tenderness. Musculoskeletal: Right lower leg: No edema. Left lower leg: No edema. Skin: General: Skin is warm and dry. Neurological: Mental Status: He is alert. Select Recent Labs BMP: Recent Labs 08/25/24 0519 08/26/24 0552 08/27/24 0216 NA 135* 135* 134* K 3.5 4.4 4.0 CL 98 102 102 CO2 24 23 24 BUN 43* 30* 36* CREATININE 7.05* 5.33* 6.32* CALCIUM 9.5 9.0 9.5 MG 2.1 2.1 2.1 PHOS 3.9 2.9 2.9 LFTs: Recent Labs 08/25/24 0519 08/26/24 0552 08/27/24 0216 AST 110* 114* 114* 64* ALT 63* 109* 109* 70* PROT 6.7 6.3* 6.3* 7.0 ALBUMIN 3.1* 2.7* 2.7* 3.2* BILITOT 0.4 0.3 0.3 0.3 ALKPHOS 128 206* 206* 222* Glucose: Recent Labs 08/25/24 0519 08/25/24 0725 08/25/24 1101 08/25/24 1655 08/25/24 2058 08/25/24 2257 08/26/24 0552 08/26/24 0730 08/26/24 1039 08/26/24 1702 08/26/24 2042 08/27/24 0216 GLUCOSE 128* -- -- -- -- -- 248* -- -- -- -- 168* POCGLU -- < > 276* 292* 302* 349* -- 247* 359* 169* 212* -- < > = values in this interval not displayed. Procal: No results for input(s): PROCAL in the last 72 hours. CBC: Recent Labs 08/25/24 0519 08/26/24 0552 08/27/24 0216 WBC 6.8 4.2 6.3 HGB 9.6* 9.5* 10.5* HCT 28.2* 28.4* 32.3* PLT 171 171 215 MCV 89.8 90.7 92.0 RDW 13.0 12.8 12.8 ABGs: No results for input(s): PHART, DMZ1UTH, PO2ART, DOB9GUG, SO2ART, A7QZXFWO in the last 72 hours. Lactic Acid: No results for input(s): LACTATE in the last 72 hours. INR: No results for input(s): INR in the last 72 hours. Cardiac Injury Profile: No results for input(s): CKTOTAL, CKMB, TROPONINI, TROPHSBASE, TROPHS2, BNP in the last 72 hours. Labs in Last 3 months: Lab Results Component Value Date TSH 2.48 08/23/2024 Assessment and Plan: MSSA Bacteremia from tunneled HD line Sepsis, Resolved Plan: - Continue Ancef - Follow-up blood cultures for 72 hours, this will be tomorrow 08/28 in the afternoon currently no growth to date at 48 hours - Dialysis MWF with AVF, no need for dialysis lines - ID planning for Ancef 2g/2g/3g MWF post-HD for 4 weeks EOT tentatively 09/22/24 after HD on DC, will ask CM to assist with coordination with OP HD center today in anticipation of weekend DC - CBC, CMP daily - Tylenol 1g TID for pain - encourage oral intake Chest Pain-resolved Hx of STEMI s/p PAXTON LAD (03/2024) Likely due to acid reflux from emesis given nature of pain -on tele, continue to monitor -currently on Plavix and ASA, Crestor 20 mg Right Lobe Liver Mass, suspected hemangioma Elevated liver enzymes - Per HPB, MRI from [place] shows liver hemangioma so no surgical intervention needed - Monitor and trend daily LFTs Resolved Problems: Diarrhea, resolved Intractable Nausea/Vomiting, resolved Unclear etiology. C. Diff by PCR negative. Likely due to abx use. - Imodium as needed - Compazine as needed Chronic Problems and Follow Up Items: Type 1 Diabetes Last known A1c 06/15/24 8.8, currently on pancreatic transplant list -Endocrinology on board for management of insulin -Currently on subcutaneous insulin with medium dose sliding scale and Lantus 50 units nightly -Hypoglycemia Protocol End-Stage Renal Disease on HD Currently on renal transplant list -continue to monitor daily labs, BMP, mag, Phos -Dialysis MWF Hypertension HLN -Continue home amlodipine 10 mg -Increasing Coreg to 25 mg twice daily given persistent hypertension Dispo and Barriers to Discharge: Home pending 72-hour blood culture clearance with IV antibiotics - Goals of Care: FULL CODE - DVT Prophylaxis: Heparin - GI Prophylaxis: Protonix daily - Diet: General [1] amLODIPine, 10 mg, Oral, Daily aspirin, 81 mg, Oral, Daily carvedilol, 12.5 mg, Oral, BID WC ceFAZolin, 1,000 mg, IntraVENous, q24h clopidogrel, 75 mg, Oral, Daily heparin, 5,000 Units, SubCUTAneous, 3 times per day insulin glargine, 50 Units, SubCUTAneous, Nightly insulin lispro, 0-10 Units, SubCUTAneous, TID WC insulin lispro, 0-12 Units, SubCUTAneous, TID WC And insulin lispro, 0-12 Units, SubCUTAneous, Nightly methyl salicylate-menthol, , Topical, Daily pantoprazole, 40 mg, Oral, qAM AC rosuvastatin, 20 mg, Oral, Nightly [2] Cosigned by Maria Luz Trujillo MD at 08/27/2024 11:11 AM EDT Associated attestation - Maria Luz Trujillo MD - 08/27/2024 11:11 AM EDT Patient seen and examined personally (Date of Sevice: 08/27/24). I agree with the findings and plan of care as documented in the resident's note. I have edited the resident note below, and my thoughts are demarcated in Green. 7AM-5PM: contact resident on [facility] (find by hovering over attending's name on left side of patient's chart) 5PM-7AM: contact AI3 res Images from the original note were not included. [facility] - Infectious Diseases Advanced Practice Provider Progress Note Subjective: Following patient for MSSA bacteremia s/p TDC removal 08/24. Notes reviewed. Patient reports feeling better overall. Reports nausea and vomiting has resolved. Denies fever, chills, CP, SOB, abdominal pain, and any new bowel or urinary issues. No other new exacerbating or alleviating factors. Objective: Vitals: Patient Vitals for the past 24 hrs: BP Temp Temp src Pulse Resp SpO2 08/26/24 1226 140/78 37.1 C (98.7 F) Temporal 90 16 97 % 08/26/24 1004 157/89 -- -- 102 -- -- 08/26/24 0844 (!) 194/112 -- -- -- -- -- 08/26/24 0842 (!) 196/118 (!) 35.9 C (96.6 F) Temporal 111 20 94 % 08/26/24 0341 158/88 36.8 C (98.3 F) Temporal 98 18 96 % 08/25/24 2343 144/96 37.2 C (98.9 F) Temporal 109 17 94 % 08/25/24 2144 155/85 -- -- -- -- -- 08/25/24 2133 (!) 189/108 36.1 C (96.9 F) Temporal 111 15 97 % 08/25/24 2030 159/74 36.1 C (97 F) -- 106 16 97 % 08/25/241999 158/89 -- -- 109 -- -- 08/25/24 1945 (!) 164/87 -- -- 109 -- -- 08/25/24 1930 146/86 -- -- 109 -- -- 08/25/24 1915 155/90 -- -- 112 -- -- 08/25/24 1900 (!) 170/98 -- -- 108 -- -- 08/25/24 1845 (!) 195/129 -- -- 108 -- -- 08/25/24 1830 (!) 162/94 -- -- 108 -- -- 08/25/24 1815 (!) 173/100 -- -- 108 -- -- 08/25/24 1800 (!) 166/94 -- -- 107 -- -- 08/25/24 1745 (!) 169/91 -- -- 107 -- -- 08/25/24 1730 (!) 175/98 -- -- 104 -- -- 08/25/24 1715 (!) 168/96 -- -- 104 -- -- 08/25/24 1707 (!) 177/98 -- -- 107 -- -- 08/25/24 1656 (!) 164/98 36.1 C (97 F) -- 107 16 98 % 08/25/24 1608 (!) 174/105 36.1 C (97 F) Temporal 107 16 97 % Physical Exam: Physical Exam Vitals and nursing note reviewed. Constitutional: General: He is not in acute distress. Appearance: Normal appearance. He is normal weight. He is not ill-appearing. Comments: NAD seen ambulating in room. Interactive, cooperative, conversant HENT: Head: Normocephalic and atraumatic. Right Ear: External ear normal. Left Ear: External ear normal. Nose: Nose normal. Mouth/Throat: Mouth: Mucous membranes are moist. Pharynx: Oropharynx is clear. Eyes: Extraocular Movements: Extraocular movements intact. Conjunctiva/sclera: Conjunctivae normal. Pupils: Pupils are equal, round, and reactive to light. Cardiovascular: Rate and Rhythm: Normal rate and regular rhythm. Pulses: Normal pulses. Heart sounds: Normal heart sounds. Pulmonary: Effort: Pulmonary effort is normal. Breath sounds: Normal breath sounds. No wheezing, rhonchi or rales. Comments: Breathing comfortably on room air. No wheezes, rales, rhonchi Abdominal: General: Abdomen is flat. Bowel sounds are normal. There is no distension. Palpations: Abdomen is soft. Tenderness: There is no abdominal tenderness. There is no guarding. Musculoskeletal: Right lower leg: No edema. Left lower leg: No edema. Skin: General: Skin is warm and dry. Comments: R chest TDC removal site dressed. L AVF Neurological: General: No focal deficit present. Mental Status: He is alert and oriented to person, place, and time. Psychiatric: Mood and Affect: Mood normal. Behavior: Behavior normal. Labs: Recent Labs 08/23/24 1300 08/24/24 0412 08/25/24 0519 08/26/24 0552 NA 134* 135* 135* 135* K 4.4 4.0 3.5 4.4 CL 99 101 98 102 CO2 20* 19* 24 23 BUN 59* 27* 43* 30* CREATININE 9.57* 5.47* 7.05* 5.33* GLUCOSE 224* 140* 128* 248* CALCIUM 8.8 8.8 9.5 9.0 PROT 6.4 6.2* 6.7 6.3* 6.3* BILITOT 0.5 0.5 0.4 0.3 0.3 ALKPHOS 85 80 128 206* 206* AST 22 81* 110* 114* 114* ALT 10 37 63* 109* 109* PROCAL 5.94* -- -- -- Recent Labs 08/24/24 0412 08/25/24 0519 08/26/24 0552 WBC 10.7 6.8 4.2 HGB 9.6* 9.6* 9.5* HCT 28.3* 28.2* 28.4* PLT 153 171 171 LYMPHOPCT 3.7* 10.0* 24.8 MONOPCT 6.9 7.4 15.0* BASOPCT 0.4 0.4 1.0 NEUTROABS 9.4* 5.3 2.3 Micro: No results for input(s): COVID19 in the last 72 hours. 08/23 Blood Cx: 2/2 MSSA 08/23 Resp PCR panel: neg 08/24 Strep/Legionella Ag: neg 08/24 Sputum Cx: cancelled dt poor quality 08/25 Blood Cx: NGTD 08/25 C diff PCR: neg Lines: R chest TDC L AVF Radiography/Echo/Other: 08/23 CXR No acute cardiopulmonary disease. 08/23 CT chest/abd/pelvis 1. CT CHEST --- There are no definite infiltrates masses or pleural effusions Right jugular tunneled dialysis catheter, left coronary artery stent with calcified plaquing. 2. CT ABDOMEN--- There is a heterogeneous large 7.7 cm MASS right lobe liver. Aortoiliac calcified plaquing with probable punctate areas of left renal artery calcification. Question of punctate gallbladder calculi or hyperdense small areas of sludge. 3. CT PELVIS--- There is a normal appendix with no free fluid or free air. Moderate amount of stool in colon with few small scattered colonic diverticuli. 08/25 TTE Left Ventricle: Left ventricle size is normal. Mildly increased wall thickness. Normal left ventricular systolic function. EF by 2D Simpsons Biplane is 66%. Global longitudinal strain is -10.8%. Normal wall motion. Right Ventricle: Right ventricle size is normal. Normal systolic function. No significant valvular abnormalities. Antimicrobials,Start/End Dates: Cefazolin: 08/24- present Pip-Tazo: 08/23-08/24 Vanc: 08/23 Impression: MSSA bacteremia Tunneled line removal 08/24 ESRD L AVF Liver mass on CT scan T1DM Plan: Patient with MSSA bacteremia- suspect 2/ TDC s/p TDC removal 08/24. 08/25 Blood Cx NGTD. TTE negative. Continue Cefazolin 1g IV q24h while in house. Follow repeat Blood Cx for clearance. Anticipating 4 weeks of IV antibiotics from Blood Cx clearance (tentatively through 09/22/24). On discharge will transition to Cefazolin 2g/2g/3g post-HD dosing. Note, patient has AVF being utilized for HD. Monitor infectious parameters. ID will continue to follow. Case and plan discussed with Dr. Valdez Based on diagnoses and management, combination of acute and chronic problems, exacerbations and/or acuity, this visit should be considered to be of moderate complexity. Tracy GEORGE PA-C [facility] [place] Progress Note Following for ESRD mgt Pt seen in room had CVC removed 08/24 for line holiday Has current LAVF placed 07/2023 tolerated HD yesterday via AVF UF 1L No complaints today Interested in HHD discussed with pt Current Inpatient Medications: Reviewed on MAY. Vitals: BP (!) 194/112 (BP Location: Right arm) Pulse 111 Temp (!) 35.9 C (96.6 F) (Temporal) Resp 20 Ht 1.803 m (5' 11) Wt 89.7 kg (197 lb 12.8 oz) SpO2 94% BMI 27.59 kg/m BLOOD PRESSURE RANGE: Systolic (24hrs), Av , Min:144 , Max:196 ; Diastolic (24hrs), Av, Min:74, Max:129 24HR INTAKE/OUTPUT: Intake/Output Summary (Last 24 hours) at 08/26/2024 0951 Last data filed at 08/25/2024 2205 Gross per 24 hour Intake 540 ml Output -- Net 540 ml Physical exam: Constitutional: NAD Cardiovascular: Normal S1, S2 without m/r/g Respiratory: CTAB without w/r/r Abdomen: +bs, soft, nt, nd Ext: no lower extremity edema Data: Labs: Recent Labs 08/24/24 0412 08/25/24 0519 08/26/24 0552 WBC 10.7 6.8 4.2 HGB 9.6* 9.6* 9.5* HCT 28.3* 28.2* 28.4* MCV 89.8 89.8 90.7 PLT 153 171 171 Recent Labs 08/24/24 0412 08/25/24 0519 08/26/24 0552 NA 135* 135* 135* K 4.0 3.5 4.4 CL 101 98 102 CO2 19* 24 23 GLUCOSE 140* 128* 248* CALCIUM 8.8 9.5 9.0 PHOS 2.9 3.9 2.9 MG 1.9 2.1 2.1 BUN 27* 43* 30* CREATININE 5.47* 7.05* 5.33* Assessment and Plan: 44 y.o. male with PMH of diabetes, hypertension, end-stage renal disease admitted to the hospital with sepsis. 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 - Bp acceptable - UF as tolerated with HD Hyponatremia. Likely from poor solute intake - should improve with HD - check Sna in AM Anemia in CKD. Hgb below goal - KELLI as OP - follow H&H - blood TF per primary team hgb <7 CKDMBD. Not on binders at this time - check phos in AM - phos gaol 3.5-5.5 MSSA Bacteremia Antimicrobials,Start/End Dates: Cefazolin: 08/24- present Pip-Tazo: 08/23-08/24 Vanc: 08/23 ID following Plan - continue HD MWF, currently on line holiday due to bacteremia -has mature AVF in L [place], used for HD & tolerated well - monitor volume status electrolytes daily -check phos in am Thank you for allowing me to care for pt. Feel free to reach out with any questions or concerns Kim Blackwell APRN MEDICAL LABORATORY SPECIALIST A-G OCCUPATIONAL THERAPY INSTRUCTOR [facility] [place] [phone] Pt seen and examined independently by me. I reviewed with , REEMA-DEJAH the medical history and the findings on physical examination. I discussed the patient s diagnosis and concur with the treatment plan as documented in his note. Please call [phone] or message me through [email or web address] with any questions or concerns. Department of Internal Medicine Division of Endocrinology, Diabetes, & Metabolism Endocrinology Note Patient Name: Farrah Gonzales : 1980 AGE: 44 y.o. Room[facility]Bed: [facility] Admission Date: 08/23/2024 Visit Date: 08/26/2024 Reason for Endocrine Consult: Type 1 diabetes mellitus on insulin pump. Provider/Team Requesting Consult: Brayan Barros PCP: Kristal Sullivan MD Outpt Track Announcer: Yes . Jace Ko MD at outside endocrinology practice. ASSESSMENT: #1. Type 1 diabetes mellitus on insulin pump. #2. End-stage renal disease on hemodialysis with a permacath access. #3. Admitted with sepsis > MSSA BACTEREMIA PLAN: #1. Transitioned to subcutaneous insulin for now #2 starting today > will do 1 to 20 carb ratio scale AND change to MDSS with meals and nightly - lantus 50 units nightly #3 monitor response and titrate as needed ICU goal <180 GMF goal <150 POCT BG [facility] Hypoglycemia management per protocol Carb controlled diet ANTICIPATED ENDOCRINE HOME GOING RECOMMENDATIONS: Optimized for Discharge from Endocrine standpoint: No Home Going Endocrine Rx Recommendations-- On insulin pump. 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 SUBJECTIVE/HPI: CHIEF COMPLAINT: No chief complaint on file. Interval history 08/26 No acute events. Doing well. No concerns today. Walking curry without issue when seen. Tolerating PO diet and subcutaneous insulin without issue 08/25 Patient doing well when seen. No complaints. States he ended up keeping pump on overnight but it will around 1500 today. Tolerating PO intake. No issues with receiving subcutaneous insulin 08/24 - got HD yesterday, Nephrology following - when seen, resting in bed, alert and oriented but fatigued, no acute concerns, no additional insulin boluses programmed overnight, states he ran in 200s HPI Farrah is a 44-year-old white male who was admitted with sepsis, to determine etiology. He has a history of type 1 diabetes mellitus since age 18. He has been on an OmniPod for the last 3 years, with a [employer] G6 CGM. He uses auto mode on his pump. Insulin pump settings as follows: at home Basal rate 1.2 units/h Carb ratio 1 unit for every 50 g Insulin sensitivity factor I unit for every 50 above 110. Insulin active time 2.5 hours Insulin type NovoLog Total daily dose the last 3 days between 40 to 60 units. 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 He has been on hemodialysis since December 2023. Denies history of diabetic retinopathy or neuropathy. Denies history of thyroid disorder. Type of DM: 1 Onset of DM: Age 18 Home DM Medication Regimen: As above DM control (last A1c/glucose data): A1C 8.8 06/15/24 Glucose Date/Time Value Ref Range Status 08/26/2024 07:30 AM 247 (H) 70 - 100 mg/dL Final 08/25/2024 10:57 PM 349 (H) 70 - 100 mg/dL Final 08/25/2024 08:58 PM 302 (H) 70 - 100 mg/dL Final 08/25/2024 04:55 PM 292 (H) 70 - 100 mg/dL Final 08/25/2024 11:01 AM 276 (H) 70 - 100 mg/dL Final 08/25/2024 07:25 AM 225 (H) 70 - 100 mg/dL Final Review of Systems Constitutional: Positive for fatigue. Negative for chills and fever. Respiratory: Negative for cough and shortness of breath. Cardiovascular: Negative for chest pain and leg swelling. Gastrointestinal: Negative for abdominal distention, abdominal pain, diarrhea, nausea and vomiting. Genitourinary: Negative for difficulty urinating and dysuria. Psychiatric/Behavioral: Negative for confusion. ROS negative except for those mentioned in HPI. OBJECTIVE: Vitals: 08/25/24 2133 08/25/24 2144 08/25/24 2343 08/26/24 0341 BP: (!) 189/108 155/85 144/96 158/88 BP Location: Right arm Right arm Right arm Right arm Patient Position: Lying Lying Lying Pulse: 111 109 98 Resp: 15 17 18 Temp: 36.1 C (96.9 F) 37.2 C (98.9 F) 36.8 C (98.3 F) TempSrc: Temporal Temporal Temporal SpO2: 97% 94% 96% Weight: Height: Physical Exam Constitutional: General: He is not in acute distress. Cardiovascular: Rate and Rhythm: Regular rhythm. Tachycardia present. Pulses: Normal pulses. Heart sounds: No murmur heard. Pulmonary: Effort: Pulmonary effort is normal. No respiratory distress. Breath sounds: Normal breath sounds. No wheezing. Abdominal: General: Abdomen is flat. Bowel sounds are normal. There is no distension. Tenderness: There is no abdominal tenderness. Musculoskeletal: Right lower leg: No edema. Left lower leg: No edema. Skin: General: Skin is warm and dry. Neurological: Mental Status: He is alert. 24 hour intake/output: Intake/Output Summary (Last 24 hours) at 08/26/2024 0818 Last data filed at 08/25/2024 2205 Gross per 24 hour Intake 540 ml Output -- Net 540 ml Diet: Adult diet Regular Medications (as per EMR): HomeMeds: No current outpatient medications Scheduled Meds:Scheduled Meds[1] Continuous Infusions:Continuous Meds[2] PRN Meds:PRN Meds[3] Diagnostic Workup: I reviewed pertinent Laboratory results, Radiographic results, and Other Clinical Notes at the time of today's encounter. Labs: No components found for: LABA1C No components found for: EAG Lab Results Component Value Date NA 135 (L) 08/26/2024 K 4.4 08/26/2024 CL 102 08/26/2024 CO2 23 08/26/2024 BUN 30 (H) 08/26/2024 CREATININE 5.33 (H) 08/26/2024 GLUCOSE 248 (H) 08/26/2024 CALCIUM 9.0 08/26/2024 No results found for: CHLPL, CHOL No results found for: TRIG No results found for: HDL No results found for: LDLCALC No results found for: VLDL No results found for: CHOLHDLRATIO No results found for: [id number] Lab Results Component Value Date TSH 2.48 08/23/2024 Radiology reportsas per the Radiologist Radiology: CT chest abdomen pelvis with contrast Result Date: 08/23/2024 Patient Name: FARRAH GONZALES : 1980 Exam Date/Time: 08/23/2024 14:56 Procedure: CT CHEST ABDOMEN PELVIS W CONTRAST Ordering Provider: TRUJILLO CLAIRE Reason For Exam: nausea/vomiting, sepsis of unknown origin HISTORY: Nausea vomiting sepsis of unknown origin After intravenous contrast, sections performed through the chest abdomen pelvis. Dose reduction was employed with automated exposure control. No comparison CT studies. FINDINGS: 1. CT CHEST --- There are no definite infiltrates masses or pleural effusions Right jugular tunneled dialysis catheter, left coronary artery stent with calcified plaquing. 2. CT ABDOMEN--- There is a heterogeneous large 7.7 cm MASS right lobe liver. Aortoiliac calcified plaquing with probable punctate areas of left renal artery calcification. Question of punctate gallbladder calculi or hyperdense small areas of sludge. 3. CT PELVIS--- There is a normal appendix with no free fluid or free air. Moderate amount of stool in colon with few small scattered colonic diverticuli. Report Dictated on Electronically Signed By: Julian Guillermo MD Electronically Signed Date/Time: 08/23/2024 8:42 PM EDT ECG 12 lead Sinus tachycardia Nonspecific T abnormalities, lateral leads XR chest 1 view Result Date: 08/23/2024 Patient Name: FARRAH GONZALES : 1980 Exam Date/Time: 08/23/2024 13:22 Procedure: XR CHEST 1 VIEW Ordering Provider: STEEN SHELDON Reason For Exam: concern for pna PORTABLE CHEST X-RAY CLINICAL INDICATION: concern for pna A portable frontal view of the chest was obtained. COMPARISON: None FINDINGS: The cardiac silhouette is within normal limits. Right jugular dialysis catheter terminates near the junction of the superior vena cava and right atrium. No focal consolidation is seen within the lungs. There is no large pleural effusion or pneumothorax. The bony structures of the chest are unremarkable as visualized. No acute cardiopulmonary disease. Report Dictated on Electronically Signed By: Anirudh Christie MD Electronically Signed Date/Time: 08/23/2024 1:40 PM EDT ECG 12 lead Sinus tachycardia Consider anterior infarct Nonspecific T abnormalities, lateral leads History/Other: Past Medical History: Medical History[4] Past Surgical History: Surgical History[5] Allergy(ies): Allergies[6] Family History: Family History[7] Social History: Social History[8] Portions of the information within this encounter were entered using an electronic dictation system. Best attempts were made to edit/proofread the information prior to note completion. Despite the review of information, some errors may remain. If there are questions related to the information contained within the note please contact the signing physician directly. I spent 30 minutes with the pt which involved coordination of care, medical evaluation, review of records, and/or counseling of the pt regarding his/her condition/disease state/prognosis on the date of this note. [1] amLODIPine, 10 mg, Oral, Daily aspirin, 81 mg, Oral, Daily ceFAZolin, 1,000 mg, IntraVENous, q24h clopidogrel, 75 mg, Oral, Daily heparin, 5,000 Units, SubCUTAneous, 3 times per day insulin glargine, 50 Units, SubCUTAneous, Nightly insulin lispro, 0-10 Units, SubCUTAneous, TID WC insulin lispro, 0-6 Units, SubCUTAneous, TID WC And insulin lispro, 0-6 Units, SubCUTAneous, Nightly metoprolol succinate XL, 25 mg, Oral, Daily pantoprazole, 40 mg, Oral, qAM AC rosuvastatin, 20 mg, Oral, Nightly [2] [3] PRN medications: acetaminophen, calcium carbonate, dextrose, dextrose, glucagon (rDNA), glucose, heparin, heparin, Lidocaine, ondansetron ODT OR ondansetron, polyethylene glycol (PEG) 3350, prochlorperazine OR prochlorperazine OR prochlorperazine [4] Past Medical History: Diagnosis Date End stage renal failure on dialysis (HCC) Hypertension Type 1 diabetes mellitus (HCC) [5] History reviewed. No pertinent surgical history. [6] No Known Allergies [7] No family history on file. [8] Social History Tobacco Use Smoking status: Never Smokeless tobacco: Never Substance Use Topics Alcohol use: Never Drug use: Never Cosigned by Akbar Brown at 08/26/2024 1:27 PM EDT Associated attestation - Akbar Brown - 08/26/2024 1:27 PM EDT Endocrinology Attending I performed a history and physical examination of the patient and discussed management with the resident. I reviewed the resident's note and agree with the documented findings and plan of care. I spent over 51% total time 35 minutes counseling and coordinating care. I have reviewed diagnostic workup and images. I have reviewed outpatient and inpatient notes. I have discussed the case with the primary team and the nurse taking care of the patient. Additional Notes: Still with hyperglycemia. Will adjust ICR and ISF. Will follow. .imMed Team Progress Note Farrah Gonzales : 1980(44 y.o.) Date: August 25, 2024 Med Team: Jamarcus Attending: Vadim Chief Complaint: Fever/Body Aches Subjective: - No acute events overnight. - Currently, Patient seen sitting comfortably eating breakfast. He notes that he has been feeling better. He denies any CP, SOB, Nausea or vomiting. He only notes pain near his shoulder blade and upper back> he has tried lidocaine patches in the past and he notes that they don't feel helpful. He reports that he has had 2 bowel movements but they were more solid. PRN meds used in last 24hrs: tylenol 650 mg X1 Phenergen 6.25 mg X1 Review of Systems Scheduled Meds:[Scheduled Meds] [Scheduled Meds] acetaminophen, 1,000 mg, Oral, TID amLODIPine, 10 mg, Oral, Daily aspirin, 81 mg, Oral, Daily ceFAZolin, 1,000 mg, IntraVENous, q24h clopidogrel, 75 mg, Oral, Daily heparin, 5,000 Units, SubCUTAneous, 3 times per day insulin glargine, 40 Units, SubCUTAneous, Nightly insulin lispro, 0-5 Units, SubCUTAneous, TID WC insulin lispro, 0-6 Units, SubCUTAneous, TID WC And insulin lispro, 0-6 Units, SubCUTAneous, Nightly [Held by provider] metoprolol succinate XL, 25 mg, Oral, Daily pantoprazole, 40 mg, Oral, qAM AC rosuvastatin, 20 mg, Oral, Nightly Continuous Infusions:[Continuous Meds] [Continuous Meds] Insulin Pump - (Patient Supplied), Objective: BP (!) 184/103 (BP Location: Right arm, Patient Position: Lying) Pulse 115 Temp 36.6 C (97.8 F) (Temporal) Resp 15 Ht 5' 11 (1.803 m) Wt 195 lb (88.5 kg) SpO2 96% BMI 27.20 kg/m Physical Exam Constitutional: General: He is not in acute distress. Appearance: Normal appearance. He is normal weight. He is not ill-appearing or toxic-appearing. HENT: Head: Normocephalic and atraumatic. Eyes: Conjunctiva/sclera: Conjunctivae normal. Cardiovascular: Rate and Rhythm: Normal rate and regular rhythm. Pulses: Normal pulses. Heart sounds: Normal heart sounds. Pulmonary: Effort: Pulmonary effort is normal. Breath sounds: Normal breath sounds. Abdominal: General: There is no distension. Tenderness: There is no abdominal tenderness. There is no guarding. Musculoskeletal: General: No swelling or deformity. Skin: General: Skin is warm and dry. Comments: area near previous tunneled HD line shows much minimal erythema or tenderness; AVF with audible thrill Neurological: Mental Status: He is alert and oriented to person, place, and time. Psychiatric: Mood and Affect: Mood normal. Select Recent Labs BMP: Recent Labs 08/23/24 1300 08/24/24 04108/25/24 05 NA 134* 135* 135* K 4.4 4.0 3.5 CL 99 101 98 CO2 20* 19* 24 BUN 59* 27* 43* CREATININE 9.57* 5.47* 7.05* CALCIUM 8.8 8.8 9.5 MG -- 1.9 2.1 PHOS -- 2.9 3.9 LFTs: Recent Labs 08/23/24 1300 08/24/24 0308 08/24/2441108/25/24 05 AST 22 -- 81* 110* ALT 10 -- 37 63* PROT 6.4 -- 6.2* 6.7 ALBUMIN 3.3* -- 2.9* 3.1* BILITOT 0.5 -- 0.5 0.4 BILIRUBINU -- Negative -- -- ALKPHOS 85 -- 80 128 LIPASE -- -- 78* -- Glucose: Recent Labs 08/23/24 1300 08/24/2441108/24/24 1757 08/24/24 2054 08/24/24 2208 08/25/24 0519 08/25/24 0725 GLUCOSE 224* 140* -- -- -- 128* -- POCGLU -- -- 355* 405* 350* -- 225* Procal: Recent Labs 08/23/24 1300 PROCAL 5.94* CBC: Recent Labs 08/23/24 1300 08/24/2441108/25/24 05 WBC 20.3* 10.7 6.8 HGB 10.4* 9.6* 9.6* HCT 29.5* 28.3* 28.2* PLT 177 153 171 MCV 88.3 89.8 89.8 RDW 13.0 13.0 13.0 ABGs: No results for input(s): PHART, OKW7NMS, PO2ART, EMZ6YWS, SO2ART, B6XTJMOE in the last 72 hours. Lactic Acid: Recent Labs 08/23/24 1300 LACTATE 1.5 INR: No results for input(s): INR in the last 72 hours. Cardiac Injury Profile: Recent Labs 08/23/24 1300 08/23/24 1437 CKTOTAL 90 -- TROPHSBASE 59* -- TROPHS2 -- 57* BNP 15,061* -- Labs in Last 3 months: Lab Results Component Value Date TSH 2.48 08/23/2024 Assessment and Plan: MSSA Bacteremia from tunneled HD line Sepsis, Resolved Plan: -currently on Ancef -BC needs to be neg X72 hrs prior to replacing tunneled line. 2nd BC currently shows no growth at 24 hours. Given functioning AVF, will not replace tunneled HD line. -CBC, CMP daily -Tylenol 1g TID for pain -encourage oral intake -Patient still undergoing dialysis MWF but now able to use AVF. Nephrology following. Right Lobe Liver Mass: -HPB surgery consulted, appreciate recs. -Per HPB, MRI from [place] shows liver hemangioma so no surgical intervention needed -Continue to trend LFTs daily. LFTs uptrending so hepatic panel pending. Chest Pain-resolved Hx of STEMI s/p PAXTON LAD (03/2024) Likely due to acid reflux from emesis given nature of pain -on tele, continue to monitor -currently on Plavix and ASA ,crestor 20 Diarrhea Intractable Nausea/Vomiting Unclear etiology. C. Diff by PCR negative. Likely due to abx use. -currently has phenergen PRN Type 1 Diabetes Last known A1c 06/15/24 8.8 -endo consulted for insulin pump management, appreciate -Pt without CSII supplies. -Endo switched pt to subcutaneous BB therapy 08/24. Pt and nurse instructed to stop insulin pump 2h post lantus admin. -Hypoglycemia Protocol End-Stage Renal Disease on HD Currently on transplant list for Pancreas and Kidneys Last dialysis 08/20/24 -continue to monitor labs Hypertension HLN Re-start home medication: -amlodipine 10 mg -Start coreg 12.5 BID for better BP control -discontinue metoprolol succinate 25 mg -continue home med, Crestor 20 mg -Daily Labs - Goals of Care: FULL CODE - DVT Prophylaxis: Heparin - GI Prophylaxis: Protonix daily - Diet: Full Liquids Cosigned by Maria Luz Trujillo MD at 08/26/2024 12:01 PM EDT Associated attestation - Maria Luz Trujillo MD - 08/26/2024 12:01 PM EDT Patient seen and examined personally (Date of Sevice: 08/26/24). I agree with the findings and plan of care as documented in the resident's note. I have edited the resident note below, and my thoughts are demarcated in Green. High risk and complexity-bacteremia requiring IV abx, HD dialysis catheter complication, awaiting blood culture finalization 7AM-5PM: contact resident on [facility] (find by hovering over attending's name on left side of patient's chart) 5PM-7AM: contact [facility] Department of Internal Medicine Division of Endocrinology, Diabetes, & Metabolism Endocrinology Note Patient Name: Farrah Gonzales : 1980 AGE: 44 y.o. Room/Bed: [facility]/[address] Admission Date: 08/23/2024 Visit Date: 08/25/2024 Reason for Endocrine Consult: Type 1 diabetes mellitus on insulin pump. Provider/Team Requesting Consult: Brayan Barros PCP: Kristal Sullivan MD Outpt Track Announcer: Yes . Jace Ko MD at outside endocrinology practice. ASSESSMENT: #1. Type 1 diabetes mellitus on insulin pump. #2. End-stage renal disease on hemodialysis with a permacath access. #3. Admitted with sepsis > MSSA BACTEREMIA PLAN: #1. Will transition to subcutaneous today with shutting off pump > discussed with patient and nursing > give lantus 50 units tonight #2 starting today > will do 1 to 30 carb ratio scale AND LDSS insulin #3 monitor response and titrate as needed ICU goal <180 GMF goal <150 POCT BG ACHS Hypoglycemia management per protocol Carb controlled diet ANTICIPATED ENDOCRINE HOME GOING RECOMMENDATIONS: Optimized for Discharge from Endocrine standpoint: No Home Going Endocrine Rx Recommendations-- On insulin pump. 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 SUBJECTIVE/HPI: CHIEF COMPLAINT: No chief complaint on file. Interval history 08/25 Patient doing well when seen. No complaints. States he ended up keeping pump on overnight but it will around 1500 today. Tolerating PO intake. No issues with receiving subcutaneous insulin 08/24 - got HD yesterday, Nephrology following - when seen, resting in bed, alert and oriented but fatigued, no acute concerns, no additional insulin boluses programmed overnight, states he ran in 200s HPI Farrah is a 44-year-old white male who was admitted with sepsis, to determine etiology. He has a history of type 1 diabetes mellitus since age 18. He has been on an OmniPod for the last 3 years, with a [employer] G6 CGM. He uses auto mode on his pump. Insulin pump settings as follows: at home Basal rate 1.2 units/h Carb ratio 1 unit for every 50 g Insulin sensitivity factor I unit for every 50 above 110. Insulin active time 2.5 hours Insulin type NovoLog Total daily dose the last 3 days between 40 to 60 units. 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 He has been on hemodialysis since December 2023. Denies history of diabetic retinopathy or neuropathy. Denies history of thyroid disorder. Type of DM: 1 Onset of DM: Age 18 Home DM Medication Regimen: As above DM control (last A1c/glucose data): A1C 8.8 06/15/24 Glucose Date/Time Value Ref Range Status 08/25/2024 11:01 AM 276 (H) 70 - 100 mg/dL Final 08/25/2024 07:25 AM 225 (H) 70 - 100 mg/dL Final 08/24/2024 10:08 PM 350 (H) 70 - 100 mg/dL Final 08/24/2024 08:54 PM 405 (H) 70 - 100 mg/dL Final 08/24/2024 05:57 PM 355 (H) 70 - 100 mg/dL Final Review of Systems Constitutional: Positive for fatigue. Negative for chills and fever. Respiratory: Negative for cough and shortness of breath. Cardiovascular: Negative for chest pain and leg swelling. Gastrointestinal: Negative for abdominal distention, abdominal pain, diarrhea, nausea and vomiting. Genitourinary: Negative for difficulty urinating and dysuria. Psychiatric/Behavioral: Negative for confusion. ROS negative except for those mentioned in HPI. OBJECTIVE: Vitals: 08/25/24 0620 08/25/24 0837 08/25/24 1100 08/25/24 1240 BP: (!) 184/103 145/85 BP Location: Right arm Right arm Patient Position: Lying Lying Pulse: 115 113 108 Resp: 15 20 Temp: 36.6 C (97.8 F) 36.9 C (98.5 F) (!) 35.8 C (96.5 F) TempSrc: Temporal Temporal Temporal SpO2: 96% 97% Weight: 197 lb 12.8 oz (89.7 kg) Height: Physical Exam Constitutional: General: He is not in acute distress. Cardiovascular: Rate and Rhythm: Regular rhythm. Tachycardia present. Pulses: Normal pulses. Heart sounds: No murmur heard. Pulmonary: Effort: Pulmonary effort is normal. No respiratory distress. Breath sounds: Normal breath sounds. No wheezing. Abdominal: General: Abdomen is flat. Bowel sounds are normal. There is no distension. Tenderness: There is no abdominal tenderness. Musculoskeletal: Right lower leg: No edema. Left lower leg: No edema. Skin: General: Skin is warm and dry. Neurological: Mental Status: He is alert. 24 hour intake/output: Intake/Output Summary (Last 24 hours) at 08/25/2024 1302 Last data filed at 08/25/2024 0519 Gross per 24 hour Intake 483.2 ml Output 0 ml Net 483.2 ml Diet: Adult diet Regular Medications (as per EMR): HomeMeds: No current outpatient medications Scheduled Meds:Scheduled Meds[1] Continuous Infusions:Continuous Meds[2] PRN Meds:PRN Meds[3] Diagnostic Workup: I reviewed pertinent Laboratory results, Radiographic results, and Other Clinical Notes at the time of today's encounter. Labs: No components found for: LABA1C No components found for: EAG Lab Results Component Value Date NA 135 (L) 08/25/2024 K 3.5 08/25/2024 CL 98 08/25/2024 CO2 24 08/25/2024 BUN 43 (H) 08/25/2024 CREATININE 7.05 (H) 08/25/2024 GLUCOSE 128 (H) 08/25/2024 CALCIUM 9.5 08/25/2024 No results found for: CHLPL, CHOL No results found for: TRIG No results found for: HDL No results found for: LDLCALC No results found for: VLDL No results found for: CHOLHDLRATIO No results found for: [id number] Lab Results Component Value Date TSH 2.48 08/23/2024 Radiology reportsas per the Radiologist Radiology: CT chest abdomen pelvis with contrast Result Date: 08/23/2024 [facility] Name[facility] 1980 [id number] Exam Date/Time: 08/23/2024 14:56 Procedure: CT CHEST ABDOMEN PELVIS W CONTRAST Ordering Provider: TRUJILLO CLAIRE Reason For Exam: nausea/vomiting, sepsis of unknown origin HISTORY: Nausea vomiting sepsis of unknown origin After intravenous contrast, sections performed through the chest abdomen pelvis. Dose reduction was employed with automated exposure control. No comparison CT studies. FINDINGS: 1. CT CHEST --- There are no definite infiltrates masses or pleural effusions Right jugular tunneled dialysis catheter, left coronary artery stent with calcified plaquing. 2. CT ABDOMEN--- There is a heterogeneous large 7.7 cm MASS right lobe liver. Aortoiliac calcified plaquing with probable punctate areas of left renal artery calcification. Question of punctate gallbladder calculi or hyperdense small areas of sludge. 3. CT PELVIS--- There is a normal appendix with no free fluid or free air. Moderate amount of stool in colon with few small scattered colonic diverticuli. Report Dictated on Electronically Signed By: Julian Guillermo MD Electronically Signed Date/Time: 08/23/2024 8:42 PM EDT ECG 12 lead Sinus tachycardia Nonspecific T abnormalities, lateral leads XR chest 1 view Result Date: 08/23/2024 [facility] Name: [facility] 1980 [id number] Exam Date/Time: 08/23/2024 13:22 Procedure: XR CHEST 1 VIEW Ordering Provider: STEEN SHELDON Reason For Exam: concern for pna PORTABLE CHEST X-RAY CLINICAL INDICATION: concern for pna A portable frontal view of the chest was obtained. COMPARISON: None FINDINGS: The cardiac silhouette is within normal limits. Right jugular dialysis catheter terminates near the junction of the superior vena cava and right atrium. No focal consolidation is seen within the lungs. There is no large pleural effusion or pneumothorax. The bony structures of the chest are unremarkable as visualized. No acute cardiopulmonary disease. Report Dictated on Electronically Signed By: Anirudh Chritsie MD Electronically Signed Date/Time: 08/23/2024 1:40 PM EDT ECG 12 lead Sinus tachycardia Consider anterior infarct Nonspecific T abnormalities, lateral leads History/Other: Past Medical History: Medical History[4] Past Surgical History: Surgical History[5] Allergy(ies): Allergies[6] Family History: Family History[7] Social History: Social History[8] Portions of the information within this encounter were entered using an electronic dictation system. Best attempts were made to edit/proofread the information prior to note completion. Despite the review of information, some errors may remain. If there are questions related to the information contained within the note please contact the signing physician directly. I spent 30 minutes with the pt which involved coordination of care, medical evaluation, review of records, and/or counseling of the pt regarding his/her condition/disease state/prognosis on the date of this note. [1] acetaminophen, 1,000 mg, Oral, TID amLODIPine, 10 mg, Oral, Daily aspirin, 81 mg, Oral, Daily ceFAZolin, 1,000 mg, IntraVENous, q24h clopidogrel, 75 mg, Oral, Daily heparin, 5,000 Units, SubCUTAneous, 3 times per day insulin glargine, 40 Units, SubCUTAneous, Nightly insulin lispro, 0-5 Units, SubCUTAneous, TID WC insulin lispro, 0-6 Units, SubCUTAneous, TID WC And insulin lispro, 0-6 Units, SubCUTAneous, Nightly metoprolol succinate XL, 25 mg, Oral, Daily pantoprazole, 40 mg, Oral, qAM AC rosuvastatin, 20 mg, Oral, Nightly [2] Insulin Pump - (Patient Supplied), [3] PRN medications: calcium carbonate, dextrose, dextrose, glucagon (rDNA), glucose, heparin, heparin, Lidocaine, ondansetron ODT OR ondansetron, polyethylene glycol (PEG) 3350, prochlorperazine OR prochlorperazine OR prochlorperazine [4] Past Medical History: Diagnosis Date End stage renal failure on dialysis (HCC) Hypertension Type 1 diabetes mellitus (HCC) [5] History reviewed. No pertinent surgical history. [6] No Known Allergies [7] No family history on file. [8] Social History Tobacco Use Smoking status: Never Smokeless tobacco: Never Substance Use Topics Alcohol use: Never Drug use: Never Cosigned by Akbar Brown at 08/25/2024 4:31 PM EDT Associated attestation - Akbar Brown - 08/25/2024 4:31 PM EDT Endocrinology Attending I performed a history and physical examination of the patient and discussed management with the resident. I reviewed the resident's note and agree with the documented findings and plan of care. I spent over 51% total time 35 minutes counseling and coordinating care. I have reviewed diagnostic workup and images. I have reviewed outpatient and inpatient notes. I have discussed the case with the primary team and the nurse taking care of the patient. Additional Notes: Still with significant hyperglycemia despite subcutaneous regimen + CSII. Increase insulin doses as below. Will follow. Images from the original note were not included. [facility] - Infectious Diseases Advanced Practice Provider Progress Note Subjective: ID following patient for MSSA bacteremia. Notes reviewed. Tunneled line removed yesterday. Patient reports he is feeling better overall. Reports still having diarrhea, but states it is soft & mushy today rather than watery like it has been past few days. Notes nausea and vomiting has resolved. Denies fever, chills, CP, SOB, abdominal pain, and any new urinary issues. No other new exacerbating or alleviating factors. Objective: Vitals: Patient Vitals for the past 24 hrs: BP Temp Temp src Pulse Resp SpO2 Weight 08/25/24 1240 -- (!) 35.8 C (96.5 F) Temporal 108 -- 97 % -- 08/25/24 1100 -- -- -- -- -- -- 89.7 kg (197 lb 12.8 oz) 08/25/24 0837 145/85 36.9 C (98.5 F) Temporal 113 20 96 % -- 08/25/24 0620 (!) 184/103 36.6 C (97.8 F) Temporal 115 15 -- -- 08/24/24 2047 135/83 36.6 C (97.9 F) Temporal 100 15 96 % -- 08/24/24 1816 129/77 36.3 C (97.4 F) Temporal 106 20 96 % -- 08/24/24 1435 144/91 36.2 C (97.1 F) Temporal 99 20 99 % -- Physical Exam: Physical Exam Vitals and nursing note reviewed. Constitutional: General: He is not in acute distress. Appearance: Normal appearance. He is normal weight. He is not ill-appearing. Comments: NAD laying in bed. Interactive, cooperative, conversant HENT: Head: Normocephalic and atraumatic. Right Ear: External ear normal. Left Ear: External ear normal. Nose: Nose normal. Mouth/Throat: Mouth: Mucous membranes are moist. Pharynx: Oropharynx is clear. Eyes: Extraocular Movements: Extraocular movements intact. Conjunctiva/sclera: Conjunctivae normal. Pupils: Pupils are equal, round, and reactive to light. Cardiovascular: Rate and Rhythm: Normal rate and regular rhythm. Pulses: Normal pulses. Heart sounds: Normal heart sounds. Pulmonary: Effort: Pulmonary effort is normal. Breath sounds: Normal breath sounds. No wheezing, rhonchi or rales. Comments: Breathing unlabored on room air. No wheezes, rales, rhonchi Abdominal: General: Abdomen is flat. Bowel sounds are normal. There is no distension. Palpations: Abdomen is soft. Tenderness: There is no abdominal tenderness. There is no guarding. Musculoskeletal: Right lower leg: No edema. Left lower leg: No edema. Skin: General: Skin is warm and dry. Comments: R chest TDC removal site dressed. L AVF Neurological: General: No focal deficit present. Mental Status: He is alert and oriented to person, place, and time. Psychiatric: Mood and Affect: Mood normal. Behavior: Behavior normal. Labs: Recent Labs 08/23/24 1300 08/24/24 0412 08/25/24 0519 NA 134* 135* 135* K 4.4 4.0 3.5 CL 99 101 98 CO2 20* 19* 24 BUN 59* 27* 43* CREATININE 9.57* 5.47* 7.05* GLUCOSE 224* 140* 128* CALCIUM 8.8 8.8 9.5 PROT 6.4 6.2* 6.7 BILITOT 0.5 0.5 0.4 ALKPHOS 85 80 128 AST 22 81* 110* ALT 10 37 63* PROCAL 5.94* -- -- Recent Labs 08/23/24 1300 08/24/24 0412 08/25/24 0519 WBC 20.3* 10.7 6.8 HGB 10.4* 9.6* 9.6* HCT 29.5* 28.3* 28.2* PLT 177 153 171 LYMPHOPCT 4* 3.7* 10.0* MONOPCT 3* 6.9 7.4 BASOPCT -- 0.4 0.4 NEUTROABS -- 9.4* 5.3 Micro: No results for input(s): COVID19 in the last 72 hours. 08/23 Blood Cx: 2/ MSSA 08/23 Resp PCR panel: neg 08/24 Strep/Legionella Ag: neg 08/24 Sputum Cx: cancelled dt poor quality 08/25 Blood Cx: in process Lines: R chest TDC L AVF Radiography/Echo/Other: 08/23 CXR No acute cardiopulmonary disease. 08/23 CT chest/abd/pelvis 1. CT CHEST --- There are no definite infiltrates masses or pleural effusions Right jugular tunneled dialysis catheter, left coronary artery stent with calcified plaquing. 2. CT ABDOMEN--- There is a heterogeneous large 7.7 cm MASS right lobe liver. Aortoiliac calcified plaquing with probable punctate areas of left renal artery calcification. Question of punctate gallbladder calculi or hyperdense small areas of sludge. 3. CT PELVIS--- There is a normal appendix with no free fluid or free air. Moderate amount of stool in colon with few small scattered colonic diverticuli. Antimicrobials,Start/End Dates: Cefazolin: 08/24- present Pip-Tazo: 08/23-08/24 Vanc: 08/23 Impression: MSSA bacteremia Tunneled line removal 08/[address] mass on CT scan T1DM Plan: Patient with MSSA bacteremia- suspect 05/02 TDC. Line removed 08/24 for line holiday. TTE pending. 08/25 Repeat Blood Cx in process. Patient has AVF. He notes he was to have Vasc US this week to ensure functioning appropriately prior to use. Will defer decision for dialysis access to Nephrology. Continue renally-dosed Cefazolin 1g IV q24h for now. Follow repeat Blood Cx to ensure clearance. Repeat Blood Cx will need to be negative x72 hours prior to replacing tunneled line if it is needed. Monitor infectious parameters. ID will continue to follow. Case and plan discussed with Dr. Valdez Based on diagnoses and management, combination of acute and chronic problems, exacerbations and/or acuity, this visit should be considered to be of moderate complexity. Tracy GEORGE PA-C [facility] [place] Nephrology Progress Note Following for ESRD mgt Pt seen in room had CVC removed 08/24 for line holiday Has current LAVF placed 07/2023 had revision + bruit /thrill Pt asking if its ok to use AVF was suppose to have US and appt with vascular today in [place] Current Inpatient Medications: Reviewed on MAY. Vitals: BP 145/85 (BP Location: Right arm, Patient Position: Lying) Pulse 113 Temp 36.9 C (98.5 F) (Temporal) Resp 20 Ht 1.803 m (5' 11) Wt 89.7 kg (197 lb 12.8 oz) SpO2 96% BMI 27.59 kg/m BLOOD PRESSURE RANGE: Systolic (24hrs), Av , Min:129 , Max:184 ; Diastolic (24hrs), Av, Min:77, Max:103 24HR INTAKE/OUTPUT: Intake/Output Summary (Last 24 hours) at 08/25/2024 1131 Last data filed at 08/25/2024 0519 Gross per 24 hour Intake 483.2 ml Output 0 ml Net 483.2 ml Physical exam: Constitutional: NAD Cardiovascular: Normal S1, S2 without m/r/g Respiratory: CTAB without w/r/r Abdomen: +bs, soft, nt, nd Ext: no lower extremity edema Data: Labs: Recent Labs 08/23/24 1300 08/24/24 0412 08/25/24 0519 WBC 20.3* 10.7 6.8 HGB 10.4* 9.6* 9.6* HCT 29.5* 28.3* 28.2* MCV 88.3 89.8 89.8 PLT 177 153 171 Recent Labs 08/23/24 1300 08/24/24 0412 08/25/24 0519 NA 134* 135* 135* K 4.4 4.0 3.5 CL 99 101 98 CO2 20* 19* 24 GLUCOSE 224* 140* 128* CALCIUM 8.8 8.8 9.5 PHOS -- 2.9 3.9 MG -- 1.9 2.1 BUN 59* 27* 43* CREATININE 9.57* 5.47* 7.05* Assessment and Plan: 44 y.o. male with PMH of diabetes, hypertension, end-stage renal disease admitted to the hospital with sepsis. 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 - Bp acceptable - UF as tolerated with HD Hyponatremia. Likely from poor solute intake - should improve with HD - check Sna in AM Anemia in CKD. Hgb below goal - KELLI as OP - follow H&H - blood TF per primary team hgb <7 CKDMBD. Not on binders at this time - check phos in AM - phos gaol 3.5-5.5 MSSA Bacteremia Antimicrobials,Start/End Dates: Cefazolin: 08/24- present Pip-Tazo: 08/23-08/24 Vanc: 08/23 ID following Plan - continue HD MWF, currently on line holiday due to bacteremia -has mature AVF in L Larm - monitor volume status electrolytes daily -check phos in am Pt seen and examined independently by me. I reviewed with FRICTION PAINT MACHINE TENDER-MEDICAL LABORATORY SPECIALIST the medical history and the findings on physical examination. I discussed the patient s diagnosis and concur with the treatment plan as documented in his note. Please call [phone] or message me through [email or web address] with any questions or concerns. Nutrition Assessment Type and Reason for Visit: Initial (Renal pt) Nutrition Recommendations/Plan: Pt ordered Regular diet; given pt's comorbidities dietary restrictions are appropriate such as 75 gm CHO Control, No Added Salt; pt declines having any diet/nutrition questions or concerns, aware of CHO amounts on menu, per diet office pt's breakfast contained ~64 gm CHO, this is including a regular Sprite; pt reports issue tolerating large portions of milk, was given lactose-free milk this morning, seems it pt just monitors how much he consumes or type of dairy, he can tolerate some amounts. Pt declines ONS when offered, RD encouraged protein intake at meals. RD to monitor weight, labs, fluid, nutritional status & follow up weekly. Malnutrition Assessment: Malnutrition Status: At risk for malnutrition (Comment) (pt with ^ needs, declines ONS) Context: Acute Illness Findings of the 6 clinical characteristics of malnutrition: Energy Intake: No significant decrease in energy intake (not reported by pt, he states his dietary habits did not change after initiation of HD) Weight Loss: No significant weight loss (not suspected acutely or chronically; chronically weight may be down slightly however not significantly; would obtain standing scale weights while admitted) Body Fat Loss: No significant body fat loss Muscle Mass Loss: No significant muscle mass loss Fluid Accumulation: No significant fluid accumulation (per chart) Suction Worker Strength: Not Performed Nutrition Assessment: Pt with PMH including T1DM (Omnipod pump and CGM), ESRD (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 In ED pt was found to be febrile (103), hypotensive (93/78) and tachycardic (135), labs significant for leukocytosis 26,000, hgb 11.9, lactic 1.5, creatinine 8.87 and potassium 3.6, urine clear and chest x-ray negative, CTAP was withotu infiltrates, masses, pleural effusions, showing R TDC in place and a large heterogenous 7.7cm R lobe liver mass; pt met criteria for sepsis and was subsequently treated with 1 L of fluids, Vanc and Zosyn and blood cultures were collected, med team consulted for further workup of sepsis; on bedside evaluation, pt's vitals noted to be: BP 156/82, R:20, P:108 satting 100 on RA; pt reported that his symptoms started 1.5 days ago in the evening after completing his dialysis session, he noted that took his temperature after he felt feverish which prompted them to go to the ED, c/o nausea, vomiting, body aches, and chest pain, characterizes his chest pain as soreness in the epigastric area radiating to his back/shoulder blades and towards his legs, also reporting slight redness and itching near his port site on his chest, denies any respiratory symptoms including SOB, cough or congestion but does note a runny nose for the last week, pt has only tried Phenergan for symptoms and has felt relief from nausea; 08/23 blood Cx collected 2/2 GPC (MSSA detected) resp PCR panel and Strep/Legionella Ag negative, source suspected to be skin given cellulitis surrounding tunneled line; several services consulted including Endo (following for insulin dosing with pump) and Nephrology (last HD 08/23), per Endo pt was diagnosed with T1DM when he was 18 YO, has been on Omnipod for 3 years with Dexcom G6 CGM; ID recommended TDC line holiday, repeating blood Cx and following for clearance, obtain TTE; GI consulted given finding of liver mass on CT scan (not seen on CT in 2023), pt had reported being told that he has a hemangioma but no recent report of this in chart, HPB Surgery consult recommended; Regular diet ordered. RD visited pt's room this morning, breakfast tray was present and 100% consumed (on tray was breakfast stack, regular Sprite and lactose-free milk, total of 64 gm CHO), pt confirmed having issue when drinking large quantities of milk but didn't report issue tolerating other dairy products in moderation; pt states his eating/diet did not really change once he started dialysis, states he was told his renal numbers were looking good (phos and sodium) and that he was encouraged to keep up his typical eating pattern; states at HD he does not receive protein supplement or bar, states 'they just give me D3', states he has tried ONS before and did not care for them; states he had diarrhea 3 times last night and that stool sample was supposed to be collected but hasn't been yet, states diarrhea is not common for him, he denies any other GI complaints; states last weight at HD was 85.5 kg, RD observed 197.8# bedscale weight w/ minimal items; when asked if he has nutrition/diet questions or concerns (pt aware of CHO amounts on menu) pt declined having any. Estimated Daily Nutrient Needs: Energy Requirements Based On: Kcal/kg Weight Used for Energy Requirements: [place] Weight for Energy Calculation (kg): 78 kg Total Energy Requirements (kcals/day): 7744-2696 kcal/day (28-30 kcal/kg) Weight Used for Protein Requirements: [place] Weight in Kg Used for Protein Requirements: 78 kg Estimated Total Protein (g/day): 94-109 gm protein/day (1.2-1.4 gm protein/kg) Estimated Daily Total Fluid (ml/day): or per MD Nutrition Related Findings: +BS, last BM 08/25, diarrhea last night per pt vomiting yesterday per chart; No edema indicated; medications reviewed; labs: Na (135), SCr (7.05), BG (128), AST (110), ALT (63), hemoglobin a1c in May (8.8%) Wound Type: None (Orlin 22) Current Nutrition Therapies: Adult diet Regular Current Oral Intake Average Meal Intake: 76-100% Average Supplements Intake: None Ordered Anthropometric Measures: Height: 180.3 cm (5' 11) Current Body Weight: 89.7 kg (197 lb 12.8 oz) (minimal items in bed) Weight Source: Bed Scale Admission Body Weight: 88.5 kg (195 lb) (stated) Usual Body Weight: (most recent EDW per chart: 90.5 kg; EPIC weight hx: 08/05- 201.5#, 06/18- 204#, 04/23- 211#, 02/25/24- 199#, 08/01/23- 213#; pt states last weight at HD was '85.5 kg') [place] Body Weight (lbs) (Calculated): 172 lbs [place] Body Weight (Kg) (Calculated): 78 kg BMI (kg/m2) (Calculated): 27.6 Weight Adjustment For: No Adjustment BMI Categories: Overweight (BMI 25.0-29.9) Nutrition Diagnosis: Altered nutrition-related lab values related to endocrine dysfuntion, renal dysfunction (comorbidities) as evidenced by lab values Increased nutrient needs related to increase demand for energy/nutrients as evidenced by dialysis Nutrition Interventions: Nutrition Education/Counseling: Education declined Coordination of Nutrition Care: Continue to monitor while inpatient Plan of Care discussed with: pt Goals: Goals: PO intake 75% or greater, by next RD assessment Nutrition Monitoring and Evaluation: Behavioral-Environmental Outcomes: None Identified Food/Nutrient Intake Outcomes: Food and Nutrient Intake Physical Signs/Symptoms Outcomes: Biochemical Data, Diarrhea, GI Status, Meal Time Behavior, Nutrition Focused Physical Findings, Skin, Weight Discharge Planning: Too soon to determine Melissa Orellana RD Contact: Secure chat or *[phone] Med Team Progress Note Farrah Gonzales : 1980(44 y.o.) Date: August 25, 2024 Med Team: Jamarcus Attending: Vadim Chief Complaint: Fever/Body Aches Subjective: - No acute events overnight. - Currently, Patient reports that he is feeling okay. His nausea and vomiting has subsided since getting phenergan. He reports that he has had 3 episodes of diarrhea and that they were soft/watery. He denies any CP or SOB. He notes that line was removed yesterday but was wondering if AV fistula can be used as it was placed last year. Clinically looks much improved today PRN meds used in last 24hrs: tylenol 650 mg X1 Phenergen 6.25 mg X1 Review of Systems Scheduled Meds:Scheduled Meds[1] Continuous Infusions:Continuous Meds[2] Objective: BP (!) 184/103 (BP Location: Right arm, Patient Position: Lying) Pulse 115 Temp 36.6 C (97.8 F) (Temporal) Resp 15 Ht 5' 11 (1.803 m) Wt 195 lb (88.5 kg) SpO2 96% BMI 27.20 kg/m Physical Exam Gen: NAD HEENT: MMM CV: rrr Resp: CTAB Skin: interval removal of tunneled HD line with improving erythema at chest wall site Abd: soft +Ve BS MSK: AVF with audible thrill Neuro: AOx4 Select Recent Labs BMP: Recent Labs 08/23/24 1300 08/24/2441108/25/24 05 NA 134* 135* 135* K 4.4 4.0 3.5 CL 99 101 98 CO2 20* 19* 24 BUN 59* 27* 43* CREATININE 9.57* 5.47* 7.05* CALCIUM 8.8 8.8 9.5 MG -- 1.9 2.1 PHOS -- 2.9 3.9 LFTs: Recent Labs 08/23/24 1300 08/24/24 03008/24/2441108/25/24 05 AST 22 -- 81* 110* ALT 10 -- 37 63* PROT 6.4 -- 6.2* 6.7 ALBUMIN 3.3* -- 2.9* 3.1* BILITOT 0.5 -- 0.5 0.4 BILIRUBINU -- Negative -- -- ALKPHOS 85 -- 80 128 LIPASE -- -- 78* -- Glucose: Recent Labs 08/23/24 1300 08/24/2441108/24/24 1757 08/24/24205308/24/24 2208 08/25/24 0519 08/25/24 0725 GLUCOSE 224* 140* -- -- -- 128* -- POCGLU -- -- 355* 405* 350* -- 225* Procal: Recent Labs 08/23/24 1300 PROCAL 5.94* CBC: Recent Labs 08/23/24 1300 08/24/2441108/25/24 05 WBC 20.3* 10.7 6.8 HGB 10.4* 9.6* 9.6* HCT 29.5* 28.3* 28.2* PLT 177 153 171 MCV 88.3 89.8 89.8 RDW 13.0 13.0 13.0 ABGs: No results for input(s): PHART, YRX6KOF, PO2ART, NAS7DHZ, SO2ART, L9BJUQGN in the last 72 hours. Lactic Acid: Recent Labs 08/23/24 1300 LACTATE 1.5 INR: No results for input(s): INR in the last 72 hours. Cardiac Injury Profile: Recent Labs 08/23/24 1300 08/23/24 1437 CKTOTAL 90 -- TROPHSBASE 59* -- TROPHS2 -- 57* BNP 15,061* -- Labs in Last 3 months: Lab Results Component Value Date TSH 2.48 08/23/2024 Assessment and Plan: Fevers/Body Aches Sepsis, Resolved SIRS criteria, resolved MSSA Bacteremia from tunneled HD line P: 108, Leukocytosis 26,000. S/p Fluid bolus -Urine Antigen: Negative -MSSA in prelim BC -Resp culture: few gram neg bacilli, and gram pos bacilli, gram positive cocci in clusters -Drug Screen Neg -ESR, CRP, Pro-Digna elevated -UA showed protein and glucose in urine -Lactic Acid, CK, Resp path panel WNL Plan: -currently on Ancef -interval TDC 08/24 removal for source control, unfortunately not sent for culture -If needed, can place HD in interim -BC needs to be neg X72 hrs prior to replacing tunneled line -Awaiting second set of BC and TTE -CBC, CMP daily -Tylenol 1g TID for pain -encourage oral intake May be able to use AVF for HD. Per patient recently had a proximal vessel balloon procedure with ligation of feeder vessels. Unclear if AVF is ready for use. Will defer to nephrology. Right Lobe Liver Mass: GI signed off but recommended: -Lipase: 78 -CT chest, abdomen and pelvis: 7.7 cm mass right lobe liver, aortoiliac calcified plaquing with probable punctate areas of left renal artery calcification -HPB surgery consulted, appreciate recs. -Continue to trend LFTs daily. -GI to sign out Pt reports being told previously this lesion was a hemangioma Chest Pain-resolved Hx of STEMI s/p PAXTON LAD (03/2024) Likely due to acid reflux from emesis given nature of pain but cardiac workup pending Trops 50, BNP WNL, TSH WNL -on tele, continue to monitor -troponin pending -currently on Plavix and ASA , crestor 20 Diarrhea Intractable Nausea/Vomiting Unclear etiology Possibly related to liver lesion -currently has phenergen PRN -C. Diff by PCR pending Type 1 Diabetes Last known A1c 06/15/24 8.8 -endo consulted for insulin pump management, appreciate -Pt without CSII supplies. -Endo switched pt to subcutaneous BB therapy 08/24. Pt and nurse instructed to stop insulin pump 2h post lantus admin. -Hypoglycemia Protocol End-Stage Renal Disease on HD Currently on transplant list for Pancreas and Kidneys Last dialysis 08/20/24 -continue to monitor labs Hypertension HLN Re-start home medication: -amlodipine 10 mg -metoprolol succinate 25 mg -continue home med, Crestor 20 mg -Daily Labs - Goals of Care: FULL CODE - DVT Prophylaxis: Heparin - GI Prophylaxis: Protonix daily - Diet: Full Liquids [1] acetaminophen, 1,000 mg, Oral, TID amLODIPine, 10 mg, Oral, Daily aspirin, 81 mg, Oral, Daily ceFAZolin, 1,000 mg, IntraVENous, q24h clopidogrel, 75 mg, Oral, Daily heparin, 5,000 Units, SubCUTAneous, 3 times per day insulin glargine, 40 Units, SubCUTAneous, Nightly insulin lispro, 0-5 Units, SubCUTAneous, TID WC insulin lispro, 0-6 Units, SubCUTAneous, TID WC And insulin lispro, 0-6 Units, SubCUTAneous, Nightly [Held by provider] metoprolol succinate XL, 25 mg, Oral, Daily pantoprazole, 40 mg, Oral, qAM AC rosuvastatin, 20 mg, Oral, Nightly [2] Insulin Pump - (Patient Supplied), Cosigned by Maria Luz Trujillo MD at 08/25/2024 1:16 PM EDT Associated attestation - Maria Luz Trujillo MD - 08/25/2024 1:16 PM EDT Patient seen and examined personally during bedside teaching rounds (Date of Service: 08/25/24). I agree with the findings and plan of care as documented in the resident's note. I have edited the resident note below, and my thoughts are demarcated in Green. 1. Complexity of problems addressed: Sepsis 3. Risk-ongoing bacteremia with need for IV abx and line holiday. Needs to be monitored IP for HD needs while on line holiday 7AM-5PM: contact resident on [facility] Med D (find by hovering over attending's name on left side of patient's chart) 5PM-7AM: contact HANNA3 jon Nephrology Progress Note Following for ESRD mgt Pt seen in room no complaints today Tolerated HD yesterday Current Inpatient Medications: Reviewed on MAY. Vitals: BP (!) 168/96 Pulse 115 Temp (!) 35.9 C (96.7 F) (Temporal) Resp 20 Ht 1.803 m (5' 11) Wt 88.5 kg (195 lb) SpO2 100% BMI 27.20 kg/m BLOOD PRESSURE RANGE: Systolic (24hrs), Av , Min:129 , Max:186 ; Diastolic (24hrs), Av, Min:74, Max:104 24HR INTAKE/OUTPUT: Intake/Output Summary (Last 24 hours) at 08/24/2024 1008 Last data filed at 08/24/2024 0535 Gross per 24 hour Intake 2069.79 ml Output 2360 ml Net -290.21 ml Physical exam: Constitutional: NAD Cardiovascular: Normal S1, S2 without m/r/g Respiratory: CTAB without w/r/r Abdomen: +bs, soft, nt, nd Ext: no lower extremity edema Data: Labs: Recent Labs 08/23/24 1300 08/24/24 0412 WBC 20.3* 10.7 HGB 10.4* 9.6* HCT 29.5* 28.3* MCV 88.3 89.8 PLT 177 153 Recent Labs 08/23/24 1300 08/24/24 0412 NA 134* 135* K 4.4 4.0 CL 99 101 CO2 20* 19* GLUCOSE 224* 140* CALCIUM 8.8 8.8 PHOS -- 2.9 MG -- 1.9 BUN 59* 27* CREATININE 9.57* 5.47* Assessment and Plan: 4 y.o. male with PMH of diabetes, hypertension, end-stage renal disease admitted to the hospital with sepsis. 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 - Bp acceptable - UF as tolerated with HD Hyponatremia. Likely from poor solute intake - should improve with HD - check Sna in AM Anemia in CKD. Hgb below goal - KELLI as OP - follow H&H - blood TF per primary team hgb <7 CKDMBD. Not on binders at this time - check phos in AM - phos gaol 3.5-5.5 Plan - continue HD MWF - monitor volume status electrolytes daily -check phos in am Thank you for allowing me to care for pt. Feel free to reach out with any questions or concerns Kim Blackwell APRN MEDICAL LABORATORY SPECIALIST A-G OCCUPATIONAL THERAPY INSTRUCTOR [facility] [place] [phone] Pt seen and examined independently by me. I reviewed with FRICTION PAINT MACHINE TENDER-MEDICAL LABORATORY SPECIALIST the medical history and the findings on physical examination. I discussed the patient s diagnosis and concur with the treatment plan as documented in his note. Please call [phone] or message me through [email or web address] with any questions or concerns. Department of Internal Medicine Division of Endocrinology, Diabetes, & Metabolism Endocrinology Note Patient Name: Farrah Gonzales : 1980 AGE: 44 y.o. Room[facility]Bed: [facility] Admission Date: 08/23/2024 Visit Date: 08/24/2024 Reason for Endocrine Consult: Type 1 diabetes mellitus on insulin pump. Provider/Team Requesting Consult: Brayan Barros PCP: Kristal Sullivan MD Outpt Track Announcer: Yes . Jace Ko MD at outside endocrinology practice. ASSESSMENT: #1. Type 1 diabetes mellitus on insulin pump. #2. End-stage renal disease on hemodialysis with a permacath access. #3. Admitted with sepsis > MSSA BACTEREMIA PLAN: #1. Will transition to subcutaneous tonight > discussed with patient and nursing > give lantus 40 units tonight and patient to remove insulin pump 2 hours afterwards #2 starting tomorrow > will do 1 to 50 carb ratio scale AND LDSS insulin #3 monitor response and titrate as needed ICU goal <180 GMF goal <150 POCT BG ACHS Hypoglycemia management per protocol Carb controlled diet ANTICIPATED ENDOCRINE HOME GOING RECOMMENDATIONS: Optimized for Discharge from Endocrine standpoint: No Home Going Endocrine Rx Recommendations-- On insulin pump. 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 SUBJECTIVE/HPI: CHIEF COMPLAINT: No chief complaint on file. Interval history 08/24 - got HD yesterday, Nephrology following - when seen, resting in bed, alert and oriented but fatigued, no acute concerns, no additional insulin boluses programmed overnight, states he ran in 200s HPI Farrah is a 44-year-old white male who was admitted with sepsis, to determine etiology. He has a history of type 1 diabetes mellitus since age 18. He has been on an OmniPod for the last 3 years, with a [employer] G6 CGM. He uses auto mode on his pump. Insulin pump settings as follows: Basal rate 1.2 units/h Carb ratio 1 unit for every 50 g Insulin sensitivity factor I unit for every 50 above 110. Insulin active time 2.5 hours Insulin type NovoLog Total daily dose the last 3 days between 40 to 60 units. 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 He has been on hemodialysis since December 2023. Denies history of diabetic retinopathy or neuropathy. Denies history of thyroid disorder. Type of DM: 1 Onset of DM: Age 18 Home DM Medication Regimen: As above DM control (last A1c/glucose data): A1C 8.8 06/15/24 No results found for: POCGLU Review of Systems Constitutional: Positive for fatigue. Negative for chills and fever. Respiratory: Negative for cough and shortness of breath. Cardiovascular: Negative for chest pain and leg swelling. Gastrointestinal: Negative for abdominal distention, abdominal pain, diarrhea, nausea and vomiting. Genitourinary: Negative for difficulty urinating and dysuria. Psychiatric/Behavioral: Negative for confusion. ROS negative except for those mentioned in HPI. OBJECTIVE: Vitals: 08/23/24 2325 08/23/24 2358 08/24/24 0418 08/24/24 0825 BP: 158/74 142/83 144/86 (!) 168/96 BP Location: Right arm Patient Position: Lying Pulse: (!) 129 (!) 127 (!) 123 115 Resp: 18 20 Temp: 37.6 C (99.7 F) 36.4 C (97.6 F) (!) 35.9 C (96.7 F) TempSrc: Temporal Temporal Temporal SpO2: 99% 98% 100% Weight: Height: Physical Exam Constitutional: General: He is not in acute distress. Cardiovascular: Rate and Rhythm: Regular rhythm. Tachycardia present. Pulses: Normal pulses. Heart sounds: No murmur heard. Pulmonary: Effort: Pulmonary effort is normal. No respiratory distress. Breath sounds: Normal breath sounds. No wheezing. Abdominal: General: Abdomen is flat. Bowel sounds are normal. There is no distension. Tenderness: There is no abdominal tenderness. Musculoskeletal: Right lower leg: No edema. Left lower leg: No edema. Skin: General: Skin is warm and dry. Neurological: Mental Status: He is alert. 24 hour intake/output: Intake/Output Summary (Last 24 hours) at 08/24/2024 0914 Last data filed at 08/24/2024 0535 Gross per 24 hour Intake 2069.79 ml Output 2360 ml Net -290.21 ml Diet: Adult diet Regular; Low Sodium (2 gm); Low Potassium (Less than 3000 mg/day); 4 carb choices (60 gm/meal) Medications (as per EMR): HomeMeds: No current outpatient medications Scheduled Meds:Scheduled Meds[1] Continuous Infusions:Continuous Meds[2] PRN Meds:PRN Meds[3] Diagnostic Workup: I reviewed pertinent Laboratory results, Radiographic results, and Other Clinical Notes at the time of today's encounter. Labs: No components found for: LABA1C No components found for: EAG Lab Results Component Value Date NA 135 (L) 08/24/2024 K 4.0 08/24/2024 CL 101 08/24/2024 CO2 19 (L) 08/24/2024 BUN 27 (H) 08/24/2024 CREATININE 5.47 (H) 08/24/2024 GLUCOSE 140 (H) 08/24/2024 CALCIUM 8.8 08/24/2024 No results found for: CHLPL, CHOL No results found for: TRIG No results found for: HDL No results found for: LDLCALC No results found for: VLDL No results found for: CHOLHDLRATIO No results found for: [id number] Lab Results Component Value Date TSH 2.48 08/23/2024 Radiology reportsas per the Radiologist Radiology: CT chest abdomen pelvis with contrast Result Date: 08/23/2024 Patient Name: FARRAH GONZALES : 1980 Exam Date/Time: 08/23/2024 14:56 Procedure: CT CHEST ABDOMEN PELVIS W CONTRAST Ordering Provider: TRUJILLO CLAIRE Reason For Exam: nausea/vomiting, sepsis of unknown origin HISTORY: Nausea vomiting sepsis of unknown origin After intravenous contrast, sections performed through the chest abdomen pelvis. Dose reduction was employed with automated exposure control. No comparison CT studies. FINDINGS: 1. CT CHEST --- There are no definite infiltrates masses or pleural effusions Right jugular tunneled dialysis catheter, left coronary artery stent with calcified plaquing. 2. CT ABDOMEN--- There is a heterogeneous large 7.7 cm MASS right lobe liver. Aortoiliac calcified plaquing with probable punctate areas of left renal artery calcification. Question of punctate gallbladder calculi or hyperdense small areas of sludge. 3. CT PELVIS--- There is a normal appendix with no free fluid or free air. Moderate amount of stool in colon with few small scattered colonic diverticuli. Report Dictated on Electronically Signed By: Julian Guillermo MD Electronically Signed Date/Time: 08/23/2024 8:42 PM EDT ECG 12 lead Sinus tachycardia Nonspecific T abnormalities, lateral leads XR chest 1 view Result Date: 08/23/2024 Patient Name: FARRAH GONZALES : 1980 Exam Date/Time: 08/23/2024 13:22 Procedure: XR CHEST 1 VIEW Ordering Provider: STEEN SHELDON Reason For Exam: concern for pna PORTABLE CHEST X-RAY CLINICAL INDICATION: concern for pna A portable frontal view of the chest was obtained. COMPARISON: None FINDINGS: The cardiac silhouette is within normal limits. Right jugular dialysis catheter terminates near the junction of the superior vena cava and right atrium. No focal consolidation is seen within the lungs. There is no large pleural effusion or pneumothorax. The bony structures of the chest are unremarkable as visualized. No acute cardiopulmonary disease. Report Dictated on Electronically Signed By: Anirudh Christie MD Electronically Signed Date/Time: 08/23/2024 1:40 PM EDT ECG 12 lead Sinus tachycardia Consider anterior infarct Nonspecific T abnormalities, lateral leads History/Other: Past Medical History: Medical History[4] Past Surgical History: Surgical History[5] Allergy(ies): Allergies[6] Family History: Family History[7] Social History: Social History[8] Portions of the information within this encounter were entered using an electronic dictation system. Best attempts were made to edit/proofread the information prior to note completion. Despite the review of information, some errors may remain. If there are questions related to the information contained within the note please contact the signing physician directly. I spent 30 minutes with the pt which involved coordination of care, medical evaluation, review of records, and/or counseling of the pt regarding his/her condition/disease state/prognosis on the date of this note. [1] acetaminophen, 1,000 mg, Oral, TID [Held by provider] amLODIPine, 10 mg, Oral, Daily heparin, 5,000 Units, SubCUTAneous, 3 times per day [Held by provider] metoprolol succinate XL, 25 mg, Oral, Daily pantoprazole, 40 mg, Oral, qAM AC piperacillin-tazobactam, 2,250 mg, IntraVENous, q6h rosuvastatin, 20 mg, Oral, Nightly [2] Insulin Pump - (Patient Supplied), [3] PRN medications: dextrose, dextrose, glucagon (rDNA), glucose, heparin, heparin, Lidocaine, ondansetron ODT OR ondansetron, polyethylene glycol (PEG) 3350, prochlorperazine OR prochlorperazine OR prochlorperazine [4] Past Medical History: Diagnosis Date End stage renal failure on dialysis (HCC) Hypertension Type 1 diabetes mellitus (HCC) [5] History reviewed. No pertinent surgical history. [6] No Known Allergies [7] No family history on file. [8] Social History Tobacco Use Smoking status: Never Smokeless tobacco: Never Substance Use Topics Alcohol use: Never Drug use: Never Cosigned by Akbar Brown at 08/24/2024 2:37 PM EDT Associated attestation - Akbar Brown - 08/24/2024 2:37 PM EDT Endocrinology Attending I performed a history and physical examination of the patient and discussed management with the resident. I reviewed the resident's note and agree with the documented findings and plan of care. I spent over 51% total time 35 minutes counseling and coordinating care. I have reviewed diagnostic workup and images. I have reviewed outpatient and inpatient notes. I have discussed the case with the primary team and the nurse taking care of the patient. Additional Notes: Pt without CSII supplies. Will switch to subcutaneous BB therapy tonight. Pt and nurse instructed to stop insulin pump 2h post lantus admin. Will follow. Vancomycin therapy has been discontinued by Dr. Munson on 08/24/24. Thank you for the consult. Pharmacy signing off for vancomycin dosing. Jennifer Herrera PharmD Date: 08/24/24 Time: 7:38 AM Brief Overnight Note Received page from RN at 21:29 PM: Hi this pt. is requesting something for pain. He is having muscle soreness in his calves and R shoulder. A lidocaine patch was placed on his shoulder earlier but he is saying it isn't doing anything. He got tylenol earlier with his HS meds, but cain if a muscle relaxer or something for pain would be better? Went to bedside to evaluate patient. Patient is resting in bed. He is not in acute distress. He is endorsing an aching pain in right shoulder and bilateral legs. He denies any chest pain or SOB. I did not appreciate significant LE erythema or significant TTP. Patient denies any known history of blood clots. Added 1x bengay cream to trial for bilateral legs and right shoulder. Received page from RN at 12:38 AM: Hey he is still in pain and he said the cream didn't work. Also, he was nauseated earlier so I gave him zofran, but he is saying that didn't help either requesting phenergan. Added 1x PRN oxycodone, 5 mg, PO for severe pain and 1x PRN phenergan, 6.25 mg, PO or IM for nausea/vomiting. documented in this encounter [facility] 08-27-2024 Plan of care note Formatting of this note might be differe nt from the original. Problem: Knowledge Deficit Goal: Patient/family/caregiver demonstrates understanding of disease process, treatment plan, medications, and discharge instructions Outcome: Progressing Flowsheets (Taken 08/27/20242227) Patient/family/caregiver demonstrates understanding of disease process, treatment plan, medications, and discharge instructions: Complete learning assessment and assess knowledge base Provide teaching at level of understanding Provide teaching via preferred learning methods Problem: Potential for Compromised Skin Integrity Goal: Skin Integrity is Maintained or Improved Outcome: Progressing Flowsheets (Taken 08/27/20242227) Skin integrity is maintained or improved: Assess and monitor skin integrity Collaborate with interdisciplinary team and initiate plans and interventions as needed Relieve pressure to bony prominences Keep skin clean and dry Encourage use of lotion/moisturizer on skin Collaborate with wound, ostomy, and continence nurse Goal: Nutritional status is improving Outcome: Progressing Flowsheets (Taken 08/27/20242227) Nutritional status is improving: Monitor and assess patient for malnutrition (ex- brittle hair, bruises, dry skin, pale skin and conjunctiva, muscle wasting, smooth red tongue, and disorientation) Collaborate with interdisciplinary team and initiate plan and interventions as ordered Monitor patient's weight and dietary intake as ordered or per policy Utilize nutrition screening tool and intervene per policy Determine patient's food preferences and provide high-protein, high-caloric foods as appropriate Include patient/family/caregiver in decisions related to nutrition Collaborate with clinical chore worker Problem: Safety - Adult Goal: Free from fall injury Outcome: Progressing Flowsheets (Taken 08/27/20242227) Free from fall injury: Instruct family/caregiver on patient safety Based on caregiver fall risk screen, instruct family/caregiver to ask for assistance with transferring infant if caregiver noted to have fall risk factors Problem: Chronic Conditions and Co-morbidities Goal: Patient's chronic conditions and co-morbidity symptoms are monitored and maintained or improved Outcome: Progressing Flowsheets (Taken 08/27/20242227) Care Plan - Patient's Chronic Conditions and Co-Morbidity Symptoms are Monitored and Maintained or Improved: Monitor and assess patient's chronic conditions and comorbid symptoms for stability, deterioration, or improvement Collaborate with multidisciplinary team to address chronic and comorbid conditions and prevent exacerbation or deterioration Update acute care plan with appropriate goals if chronic or comorbid symptoms are exacerbated and prevent overall improvement and discharge Problem: Problem Interventions Goal: Assess Nutritional Intake Outcome: Progressing [facility] 08-27-2024 [facility] Notes Formatting of this note might be differe nt from the original. Problem: Knowledge Deficit Goal: Patient/family/caregiver demonstrates understanding of disease process, treatment plan, medications, and discharge instructions Outcome: Progressing Flowsheets (Taken 08/27/20242227) Patient/family/caregiver demonstrates understanding of disease process, treatment plan, medications, and discharge instructions: Complete learning assessment and assess knowledge base Provide teaching at level of understanding Provide teaching via preferred learning methods Problem: Potential for Compromised Skin Integrity Goal: Skin Integrity is Maintained or Improved Outcome: Progressing Flowsheets (Taken 08/27/20242227) Skin integrity is maintained or improved: Assess and monitor skin integrity Collaborate with interdisciplinary team and initiate plans and interventions as needed Relieve pressure to bony prominences Keep skin clean and dry Encourage use of lotion/moisturizer on skin Collaborate with wound, ostomy, and continence nurse Goal: Nutritional status is improving Outcome: Progressing Flowsheets (Taken 08/27/20242227) Nutritional status is improving: Monitor and assess patient for malnutrition (ex- brittle hair, bruises, dry skin, pale skin and conjunctiva, muscle wasting, smooth red tongue, and disorientation) Collaborate with interdisciplinary team and initiate plan and interventions as ordered Monitor patient's weight and dietary intake as ordered or per policy Utilize nutrition screening tool and intervene per policy Determine patient's food preferences and provide high-protein, high-caloric foods as appropriate Include patient/family/caregiver in decisions related to nutrition Collaborate with clinical chore worker Problem: Safety - Adult Goal: Free from fall injury Outcome: Progressing Flowsheets (Taken 08/27/20242227) Free from fall injury: Instruct family/caregiver on patient safety Based on caregiver fall risk screen, instruct family/caregiver to ask for assistance with transferring infant if caregiver noted to have fall risk factors Problem: Chronic Conditions and Co-morbidities Goal: Patient's chronic conditions and co-morbidity symptoms are monitored and maintained or improved Outcome: Progressing Flowsheets (Taken 08/27/20242227) Care Plan - Patient's Chronic Conditions and Co-Morbidity Symptoms are Monitored and Maintained or Improved: Monitor and assess patient's chronic conditions and comorbid symptoms for stability, deterioration, or improvement Collaborate with multidisciplinary team to address chronic and comorbid conditions and prevent exacerbation or deterioration Update acute care plan with appropriate goals if chronic or comorbid symptoms are exacerbated and prevent overall improvement and discharge Problem: Problem Interventions Goal: Assess Nutritional Intake Outcome: Progressing Problem: Knowledge Deficit Goal: Patient/family/caregiver demonstrates understanding of disease process, treatment plan, medications, and discharge instructions 08/27/2024 1754 by Mike Lopez RN Outcome: Progressing 08/27/2024 1722 by Mike Lopez RN Outcome: Progressing Problem: Potential for Compromised Skin Integrity Goal: Skin Integrity is Maintained or Improved 08/27/2024 1754 by Mike Lopez RN Outcome: Progressing 08/27/2024 1722 by Mike Lopez RN Outcome: Progressing Goal: Nutritional status is improving 08/27/2024 1754 by Mike Lopez RN Outcome: Progressing 08/27/2024 1722 by Mike Lopez RN Outcome: Progressing Problem: Safety - Adult Goal: Free from fall injury 08/27/2024 1754 by Mike Lopez RN Outcome: Progressing 08/27/2024 1722 by Mike Lopez RN Outcome: Progressing Problem: Chronic Conditions and Co-morbidities Goal: Patient's chronic conditions and co-morbidity symptoms are monitored and maintained or improved 08/27/2024 1754 by Mike Lopez RN Outcome: Progressing 08/27/2024 1722 by Mike Lopez RN Outcome: Progressing Problem: Problem Interventions Goal: Assess Nutritional Intake 08/27/2024 1754 by Mike Lopez RN Outcome: Progressing 08/27/2024 1722 by Mike Lopez RN Outcome: Progressing Problem: Knowledge Deficit Goal: Patient/family/caregiver demonstrates understanding of disease process, treatment plan, medications, and discharge instructions Outcome: Progressing Problem: Potential for Compromised Skin Integrity Goal: Skin Integrity is Maintained or Improved Outcome: Progressing Goal: Nutritional status is improving Outcome: Progressing Problem: Safety - Adult Goal: Free from fall injury Outcome: Progressing Problem: Chronic Conditions and Co-morbidities Goal: Patient's chronic conditions and co-morbidity symptoms are monitored and maintained or improved Outcome: Progressing Spoke with [facility] Tammy and updated that plan was to discharge Friday with abx after dialysis. They are able to accept. OPAT faxed to facility. IV ancef continued. Plan for halfway abx with dialysis. ID following- waiting for culture results. OPAT to be written. Anticipate discharge home with no needs. Problem: Knowledge Deficit Goal: Patient/family/caregiver demonstrates understanding of disease process, treatment plan, medications, and discharge instructions Outcome: Progressing Problem: Potential for Compromised Skin Integrity Goal: Skin Integrity is Maintained or Improved Outcome: Progressing IV ancef continued. Repeat cultures pending. 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 Nephrology following. Anticipate discharge home with no needs. Dialysis cath removed yesterday for line holiday. If HD needed a temp line can be placed per ID. Repeat culture ordered- 1 set pending. IV ancef continued- possible need for oysterman abx. GI s/o. Hepatobiliary surg consulted. Endo/ ID following. Anticipate discharge home with no needs. Central Line Removal Note Line Type: Tunneled Hemodialysis Catheter Line Location: Right Subclavian Line Size: 14.5 Fr x 19cm The procedure was explained to the patient and/or healthcare decision maker and they agreed to proceed. The central line dressing was removed and a sterile field was set up on the bedside table. Sterile towels were draped around the insertion site. The insertion site and entire exposed catheter and lumens was cleaned with antiseptic spray. Sterile gloves were donned. Sutures were cut and removed from the skin. Breathing exercises were explained to the patient. The patient was laid flat. Sterile gauze was placed over the insertion site and the entire intact catheter and cuff was removed without incident. Pressure was held at the site until hemostasis was achieved. Skin was cleansed of antiseptic with saline moistened gauze. Site was covered with a dry sterile dressing. Patient tolerated the procedure well. Everyone in the room wore a mask for the duration of the procedure. Pt adm for tx/ eval of sepsis- transfer from [place] [facility]. HD- MWF. IV zosyn/ vanc continued. Respiratory culture positive. BC positive. XR chest/ CT abd pelvis completed. Echo pending. Per nursing pt is vomiting today. GI/ID consulted. Anticipate discharge home. Possible halfway abx. Problem: Knowledge Deficit Goal: Patient/family/caregiver demonstrates understanding of disease process, treatment plan, medications, and discharge instructions 08/23/2024 1649 by Mike Lopez RN Outcome: Progressing 08/23/2024 1046 by Mike Lopez RN Outcome: Progressing Problem: Potential for Compromised Skin Integrity Goal: Skin Integrity is Maintained or Improved 08/23/2024 164 by Mike Lopez RN Outcome: Progressing 08/23/2024 1046 by Mike Lopez RN Outcome: Progressing Goal: Nutritional status is improving 08/23/2024 1649 by Mike Lopez RN Outcome: Progressing 08/23/2024 1046 by Mike Lopez RN Outcome: Progressing Problem: Safety - Adult Goal: Free from fall injury 08/23/2024 1649 by Mike Lopez RN Outcome: Progressing 08/23/2024 1046 by Mike Lopez RN Outcome: Progressing Problem: Chronic Conditions and Co-morbidities Goal: Patient's chronic conditions and co-morbidity symptoms are monitored and maintained or improved 08/23/2024 1649 by Mike Lopez RN Outcome: Progressing 08/23/2024 1046 by Mike Lopez RN Outcome: Progressing Problem: Knowledge Deficit Goal: Patient/family/caregiver demonstrates understanding of disease process, treatment plan, medications, and discharge instructions Outcome: Progressing Problem: Potential for Compromised Skin Integrity Goal: Skin Integrity is Maintained or Improved Outcome: Progressing Goal: Nutritional status is improving Outcome: Progressing Problem: Safety - Adult Goal: Free from fall injury Outcome: Progressing Problem: Chronic Conditions and Co-morbidities Goal: Patient's chronic conditions and co-morbidity symptoms are monitored and maintained or improved Outcome: Progressing documented in this encounter [facility] 08-27-2024 Plan of care note Formatting of this note might be differe nt from the original. Problem: Knowledge Deficit Goal: Patient/family/caregiver demonstrates understanding of disease process, treatment plan, medications, and discharge instructions 08/27/2024 1754 by Mike Lopez RN Outcome: Progressing 08/27/2024 1722 by Mike Lopez RN Outcome: Progressing Problem: Potential for Compromised Skin Integrity Goal: Skin Integrity is Maintained or Improved 08/27/2024 1754 by Mike Lopez RN Outcome: Progressing 08/27/2024 1722 by Mike Lopez RN Outcome: Progressing Goal: Nutritional status is improving 08/27/2024 1754 by Mike Lopez RN Outcome: Progressing 08/27/2024 1722 by Mike Lopez RN Outcome: Progressing Problem: Safety - Adult Goal: Free from fall injury 08/27/2024 1754 by Mike Lopez RN Outcome: Progressing 08/27/2024 1722 by Mike Lopez RN Outcome: Progressing Problem: Chronic Conditions and Co-morbidities Goal: Patient's chronic conditions and co-morbidity symptoms are monitored and maintained or improved 08/27/2024 1754 by Mike Lopez RN Outcome: Progressing 08/27/2024 1722 by Mike Lopez RN Outcome: Progressing Problem: Problem Interventions Goal: Assess Nutritional Intake 08/27/2024 1754 by Mike Lopez RN Outcome: Progressing 08/27/2024 1722 by Mike Lopez RN Outcome: Progressing [facility] 08-27-2024 Plan of care note Formatting of this note might be differe nt from the original. Problem: Knowledge Deficit Goal: Patient/family/caregiver demonstrates understanding of disease process, treatment plan, medications, and discharge instructions Outcome: Progressing Problem: Potential for Compromised Skin Integrity Goal: Skin Integrity is Maintained or Improved Outcome: Progressing Goal: Nutritional status is improving Outcome: Progressing Problem: Safety - Adult Goal: Free from fall injury Outcome: Progressing Problem: Chronic Conditions and Co-morbidities Goal: Patient's chronic conditions and co-morbidity symptoms are monitored and maintained or improved Outcome: Progressing [facility] 08-27-2024 Note [facility] - Infectious Diseases Advanced Practice Provider Progress Note Subjective: Following patient for MSSA bacteremia s/p TDC removal 08/24. Notes reviewed. Patient reports feeling well overall with no new issues or complaints. Denies fever/chills, CP, SOB, N/V, abdominal pain, diarrhea, constipation, and any new urinary changes. No other new exacerbating or alleviating factors. Objective: Vitals: Patient Vitals for the past 24 hrs: BP Temp Temp src Pulse Resp SpO2 08/27/24 1545 136/88 -- -- 93 -- -- 08/27/24 1530 142/83 -- -- 88 -- -- 08/27/24 1518 158/98 -- -- 92 -- -- 08/27/24 1500 158/88 -- -- 91 -- -- 08/27/24 1445 141/84 -- -- 90 -- -- 08/27/24 1431 137/80 -- -- 82 -- -- 08/27/24 1415 141/84 -- -- 83 -- -- 08/27/24 1400 141/85 -- -- 91 -- -- 08/27/24 1345 151/86 -- -- 84 -- -- 08/27/24 1341 148/82 -- -- 90 -- -- 08/27/24 1339 149/86 -- -- 88 -- -- 08/27/24 1330 147/85 36.4 ?C (97.6 ?F) -- 93 16 95 % 08/27/24 0733 (!) 185/99 36.4 ?C (97.5 ?F) Temporal 95 -- 98 % 08/26/24 2353 (!) 163/81 36.4 ?C (97.6 ?F) Temporal 92 16 97 % 08/26/242026 157/94 36.4 ?C (97.5 ?F) Temporal 99 18 96 % 08/26/24 1705 (!) 162/88 36.6 ?C (97.9 ?F) Temporal 92 20 96 % Physical Exam: Physical Exam Vitals and nursing note reviewed. Constitutional: General: He is not in acute distress. Appearance: Normal appearance. He is normal weight. He is not ill-appearing. Comments: NAD laying in bed. Interactive, cooperative, conversant HENT: Head: Normocephalic and atraumatic. Right Ear: External ear normal. Left Ear: External ear normal. Nose: Nose normal. Mouth/Throat: Mouth: Mucous membranes are moist. Pharynx: Oropharynx is clear. Eyes: Extraocular Movements: Extraocular movements intact. Conjunctiva/sclera: Conjunctivae normal. Pupils: Pupils are equal, round, and reactive to light. Cardiovascular: Rate and Rhythm: Normal rate and regular rhythm. Pulses: Normal pulses. Heart sounds: Normal heart sounds. Pulmonary: Effort: Pulmonary effort is normal. Breath sounds: Normal breath sounds. No wheezing, rhonchi or rales. Comments: Breathing comfortably on room air. No wheezes, rales, rhonchi Abdominal: General: Abdomen is flat. Bowel sounds are normal. There is no distension. Palpations: Abdomen is soft. Tenderness: There is no abdominal tenderness. There is no guarding. Musculoskeletal: Right lower leg: No edema. Left lower leg: No edema. Skin: General: Skin is warm and dry. Comments: R chest TDC removal site dressed. L AVF Neurological: General: No focal deficit present. Mental Status: He is alert and oriented to person, place, and time. Psychiatric: Mood and Affect: Mood normal. Behavior: Behavior normal. Labs: Recent Labs 08/25/24 0519 08/26/24 0552 08/27/24 0216 NA 135* 135* 134* K 3.5 4.4 4.0 CL 98 102 102 CO2 24 23 24 BUN 43* 30* 36* CREATININE 7.05* 5.33* 6.32* GLUCOSE 128* 248* 168* CALCIUM 9.5 9.0 9.5 PROT 6.7 6.3* 6.3* 7.0 BILITOT 0.4 0.3 0.3 0.3 ALKPHOS 128 206* 206* 222* AST 110* 114* 114* 64* ALT 63* 109* 109* 70* Recent Labs 08/25/24 0519 08/26/24 0552 08/27/24 0216 WBC 6.8 4.2 6.3 HGB 9.6* 9.5* 10.5* HCT 28.2* 28.4* 32.3* PLT 171 171 215 LYMPHOPCT 10.0* 24.8 21.4 MONOPCT 7.4 15.0* 11.0 BASOPCT 0.4 1.0 0.6 NEUTROABS 5.3 2.3 3.8 Micro: No results for input(s): COVID19 in the last 72 hours. 08/23 Blood Cx: 2/ MSSA 08/23 Resp PCR panel: neg 08/24 Strep/Legionella Ag: neg 08/24 Sputum Cx: cancelled dt poor quality 08/25 Blood Cx: NGTD 08/25 C diff PCR: neg Lines: R chest TDC L AVF Radiography/Echo/Other: 08/23 CXR No acute cardiopulmonary disease. 08/23 CT chest/abd/pelvis 1. CT CHEST --- There are no definite infiltrates masses or pleural effusions Right jugular tunneled dialysis catheter, left coronary artery stent with calcified plaquing. 2. CT ABDOMEN--- There is a heterogeneous large 7.7 cm MASS right lobe liver. Aortoiliac calcified plaquing with probable punctate areas of left renal artery calcification. Question of punctate gallbladder calculi or hyperdense small areas of sludge. 3. CT PELVIS--- There is a normal appendix with no free fluid or free air. Moderate amount of stool in colon with few small scattered colonic diverticuli. 08/25 TTE Left Ventricle: Left ventricle size is normal. Mildly increased wall thickness. Normal left ventricular systolic function. EF by 2D Simpsons Biplane is 66%. Global longitudinal strain is -10.8%. Normal wall motion. Right Ventricle: Right ventricle size is normal. Normal systolic function. No significant valvular abnormalities. Antimicrobials,Start/End Dates: Cefazolin: 08/24- present Pip-Tazo: 08/23-08/24 Vanc: 08/23 Impression: MSSA bacteremia Tunneled line removal 08/24 ESRD L AVF Liver mass on CT scan T1DM Plan: Following patient for MSSA bacteremia suspected 05/02 TDC s/p (more content not included)... [facility] 08-27-2024 Note Formatting of this note might be differe nt from the original. Spoke with [facility] Tammy and updated that plan was to discharge Friday with abx after dialysis. They are able to accept. OPAT faxed to facility. [facility] 08-27-2024 Note Formatting of this note might be differe nt from the original. Spoke with [facility] Tammy and updated that plan was to discharge Friday with abx after dialysis. They are able to accept. OPAT faxed to facility. [facility] 08-27-2024 Nurse Note Formatting of this note is different fro m the original. Patient Name: Farrah Gonzales Patient : 1980 Acct: [id number] Date of Admission: 08/23/2024 Room/Bed: [facility] A Code Status: Full Code Allergies: Allergies[1] Diagnosis: Problem List[2] Treatment: Hemodilaysis 2:1 Priority: Routine Location: Acute Room Diabetic: Yes NPO: No Isolation Precautions: Dialysis Consent for Treatment Verified: Yes Blood Consent Verified: Not Applicable ICEBOAT: Identify, Consent, Equipment, HepB Status, Orders Complete, Access Verified, Timeliness (o2 and suction functional @ bedside) Second Clinician Verifying: Sasha Ashby RN Time out performed prior to access at 1334. Report Received from Primary RN at 0966. Primary RN (First Initial, Last Name, Title): Kathi Lopez RN Incapacitated Nurse Education Completed: ws HBsAg ONLY: Date Drawn: August 09, 2024 Results: Negative HBsAb: Date Drawn: August 09, 2024 Results: Immune >10 Order Dialyzer: Revaclear 300 Na+ Modeling: Not Applicable Dialysate Temperature (C): 36 Blood Flow Rate (BFR): 250 Dialysate Flow Rate (DFR): 500 Access to be Utilized Access: AVF Location: Upper Extremity Side: Left Needle gauge: 17 + Bruit/Thrill: Yes First Use X-ray Verified: Not Applicable OK to use line order: Not Applicable Site Assessment: Signs and Symptoms of Infection/Inflammation: None If yes: Not Applicable Dressing: na Site Prep: Medical Aseptic Technique Dressing Changed this Treatment: na If yes, by whom: na Date of Last Dressing Change: na na20[address]?: na Red Alcohol Caps in place?: na Gauze Dressing?: na Non-Dialysis Use?: No Comment: Flows: Good If access problem, who was notified: Pre and Post-Assessment Patient Vitals for the past 8 hrs: Level of Consciousness Heart Rhythm O2 Device Bilateral Breath Sounds Skin Condition/Temp Abdomen Inspection Bowel Sounds (All Quadrants) 08/27/24 1330 Alert (0) Regular None (Room air) Clear Warm;Dry Soft Audible 08/27/24 1639 Alert (0) Regular -- -- -- -- -- Labs Lab Results Component Value Date/Time WBC 6.3 08/27/2024215 HGB 10.5 (L) 08/27/2024215 HCT 32.3 (L) 08/27/2024215 PLT 215 08/27/2024215 NA 134 (L) 08/27/2024215 K 4.0 08/27/2024215 CL 102 08/27/2024215 CO2 24 08/27/2024215 BUN 36 (H) 08/27/2024215 CREATININE 6.32 (H) 08/27/2024215 CALCIUM 9.5 08/27/2024215 PHOS 2.9 08/27/2024215 IV Drips and Rate/Dose Continuous Meds[3] Safety - Before each treatment: Dialysis Machine No.: [id number] RO Machine Number: [id number] Dialyzer Lot No.: [id number] Tubing Lot Number: [id number] [employer] Secure: Yes Venous Parameters Set: Yes Arterial Parameters Set: Yes NS Bag: Yes Saline Line Double Clamped: Yes Dialyzer: Revaclear 300 Prime Volume (mL): 200 mL RO Machine Number: [id number] RO Machine Log Sheet Completed: Yes Machine Alarm Self Test: Completed, Passed (08/27/24 1300) Air Foam Detector: Tested, Proper Function, pH Reading Extracorporeal Circuit Tested for Integrity: Yes Machine Conductivity: 13..8 Manual Conductivity: 13.8 Manual Ph: 7.14 Bleach Test (Neg): Yes Bath Temperature: 36 C (96.8 F) Conductivity Meter Serial #: [id number] Machine Functioning Alarm Free? Yes Dialysis Bath: K+ (Potassium): 3 Ca+ (Calcium): 2.5 Na+ (Sodium): 137 HCO3 (Bicarb): 32 Bicarbonate Concentrate Lot No.: [id number] Acid Concentrate Lot No.: [id number] Chlorine Testing - Before each treatment and every 4 hours: Time On: 1339 Time Off: 1639 Treatment Goal: 1L Weight Height: 180.3 cm (5' 11) (08/23/24 1031) Weight: 89.7 kg (197 lb 12.8 oz) (08/25/24 1100) BMI (Calculated): 27.6 (08/25/24 1100) 1st check: less than 0.1 ppm at: 1145 2nd check: less than 0.1 ppm at: 1445 3rd check: Not Applicable (if greater than 0.1 ppm, then check every 30 minutes from secondary) Access Flows and Pressures Patient Vitals for the past 8 hrs: Blood Flow Rate (mL/min) Ultrafiltration Rate (ml/hr) Arterial Pressure (mmHg) Venous Pressure (mmHg) TMP DFR Access Visible Intra-Hemodialysis Comments 08/27/24 1330 -- -- -- -- -- -- Yes pt aware of call light within reach and educated on use of call light 08/27/24 1339 200 mL/min 500 ml/hr -30 mmHg 100 mmHg 40 500 Yes tx iniated lines secured pt stable 08/27/24 1341 250 mL/min 500 ml/hr -100 mmHg 150 mmHg 70 500 Yes bfr increased 08/27/24 1345 250 mL/min 500 ml/hr -120 mmHg 170 mmHg 70 500 Yes Pt alert watching tv. Rmvd 61. Pt has the call light. 08/27/24 1400 250 mL/min 500 ml/hr -120 mmHg 160 mmHg 70 500 Yes Pt alert resting. Rmvd 181. Lines secure. 08/27/24 1415 250 mL/min 500 ml/hr -130 mmHg 150 mmHg 70 500 Yes Pt sleeping. Lines secure. Rmvd 325. 08/27/24 1431 250 mL/min 500 ml/hr -130 mmHg 160 mmHg 70 500 Yes Pt sleeping. Rmvd 426. Lines secure. Call light in reach. 08/27/24 1445 250 mL/min 500 ml/hr -130 mmHg 160 mmHg 70 500 Yes Pt sleeping. Stable. Rmvd 554. 08/27/24 1500 250 mL/min 500 ml/hr -130 mmHg 160 mmHg 70 500 Yes Pt sleeping. Rmvd 682. Call light in reach0. 08/27/24 1518 250 mL/min 500 ml/hr -130 mmHg 160 mmHg 80 500 Yes Pt sleeping rmvd 806. Stable. 08/27/24 1530 250 mL/min 500 ml/hr -130 mmHg 160 mmHg 80 500 Yes Pt alert on phone rmvd 930. Lines secure. Pt has the call light. 08/27/24 1545 250 mL/min 500 ml/hr -130 mmHg 160 mmHg 80 500 Yes Pt alert bon the pt stable Rmvd 1054. 08/27/24 1600 250 mL/min 500 ml/hr -130 mmHg 160 mmHg 80 500 Yes Pt alert stable rmvd 1168. Pt on phone. 08/27/24 1615 250 mL/min 500 ml/hr -120 mmHg 170 mmHg 70 500 Yes Pt alert on his phone. Rmvd 1291. Stable. 08/27/24 1630 250 mL/min 500 ml/hr -120 mmHg 170 mmHg 701 500 Yes Pt stable watching tv rmvd 1458 08/27/24 1639 -- -- -- -- -- -- Yes tx complete pt stable 1500 uf removed Vital Signs Patient Vitals for the past 24 hrs: BP Temp Temp src Pulse Resp SpO2 08/27/24 1738 (!) 172/89 36.6 C (97.9 F) Temporal 98 20 96 % 08/27/24 1645 152/86 -- -- 90 -- -- 08/27/24 1639 156/90 37 C (98.6 F) -- 91 16 95 % 08/27/24 1630 136/76 -- -- 92 -- -- 08/27/24 1615 133/98 -- -- 107 -- -- 08/27/24 1600 125/72 -- -- 93 -- -- 08/27/24 1545 136/88 -- -- 93 -- -- 08/27/24 1530 142/83 -- -- 88 -- -- 08/27/24 1518 158/98 -- -- 92 -- -- 08/27/24 1500 158/88 -- -- 91 -- -- 08/27/24 1445 141/84 -- -- 90 -- -- 08/27/24 1431 137/80 -- -- 82 -- -- 08/27/24 1415 141/84 -- -- 83 -- -- 08/27/24 1400 141/85 -- -- 91 -- -- 08/27/24 1345 151/86 -- -- 84 -- -- 08/27/24 1341 148/82 -- -- 90 -- -- 08/27/24 1339 149/86 -- -- 88 -- -- 08/27/24 1330 147/85 36.4 C (97.6 F) -- 93 16 95 % 08/27/24 0733 (!) 185/99 36.4 C (97.5 F) Temporal 95 -- 98 % 08/26/24 2353 (!) 163/81 36.4 C (97.6 F) Temporal 92 16 97 % 08/26/242026 157/94 36.4 C (97.5 F) Temporal 99 18 96 % Post-Dialysis Arterial Catheter Locking Solution: Not Applicable Venous Catheter Locking Solution: Not Applicable Post-Treatment Procedures: Blood returned, Access bleeding time < 10 minutes Machine Disinfection Process: Exterior Machine Disinfection Rinseback Volume (mL): 300 mL Total Liters Processed (L/min): 42.4 L/min Dialyzer Clearance: Lightly streaked Hemodialysis Intake (ml): 500 ml Hemodialysis Output (ml): 1500 ml NET Removed (ml): 1000 ml Tolerated Treatment: Good Patient Response to Treatment: stable Physician Notified: No Patient Disposition: Return to room Charge: $ IP Hemodialysis Charge: Hemodialysis Provider Notification Provider Notification Reason for Communication: Review case Provider Name: Dr Barros Provider Role: Attending physician Method of Communication: Secure chat Response: Waiting for response Notification Date: 08/27/24 Notification Time: 1741 Reason for Communication: Review case Provider Role: Attending physician Method of Communication: Secure chat Response: Waiting for response Notification Time: 174 Handoff complete and report given to Primary RN at 1700. Primary RN (First Initial, Last Name, Title): Kathi Lopez RN Education Person Educated: Patient Knowledge Base: Minimal Barriers to Learning?: None Preferred method of Learning: Oral Topic(s): call light, Access Care, Signs and Symptoms of Infection, and Fluid Management Teaching Tools: Demonstration Response to Education: Verbalized Understanding [1] No Known Allergies [2] Patient Active Problem List Diagnosis History of myocardial infarction MSSA bacteremia Complication associated with dialysis catheter Sepsis due to methicillin susceptible Staphylococcus aureus (MSSA) without acute organ dysfunction (CMS/HCC) (HCC) [3] T [facility] 08-27-2024 Nurse Note Formatting of this note is different fro m the original. Patient Name: Farrah Gonzales Patient : 1980 Acct: [id number] Date of Admission: 08/23/2024 Room[facility]Bed: [facility] A Code Status: Full Code Allergies: Allergies[1] Diagnosis: Problem List[2] Treatment: Hemodilaysis 2:1 Priority: Routine Location: Acute Room Diabetic: Yes NPO: No Isolation Precautions: Dialysis Consent for Treatment Verified: Yes Blood Consent Verified: Not Applicable ICEBOAT: Identify, Consent, Equipment, HepB Status, Orders Complete, Access Verified, Timeliness (o2 and suction functional @ bedside) Second Clinician Verifying: Sasha Ashby RN Time out performed prior to access at 1334. Report Received from Primary RN at 0942. Primary RN (First Initial, Last Name, Title): Kathi Lopez RN Incapacitated Nurse Education Completed: ws HBsAg ONLY: Date Drawn: August 09, 2024 Results: Negative HBsAb: Date Drawn: August 09, 2024 Results: Immune >10 Order Dialyzer: Revaclear 300 Na+ Modeling: Not Applicable Dialysate Temperature (C): 36 Blood Flow Rate (BFR): 250 Dialysate Flow Rate (DFR): 500 Access to be Utilized Access: AVF Location: Upper Extremity Side: Left Needle gauge: 17 + Bruit/Thrill: Yes First Use X-ray Verified: Not Applicable OK to use line order: Not Applicable Site Assessment: Signs and Symptoms of Infection/Inflammation: None If yes: Not Applicable Dressing: na Site Prep: Medical Aseptic Technique Dressing Changed this Treatment: na If yes, by whom: na Date of Last Dressing Change: na [address]?: na Red Alcohol Caps in place?: na Gauze Dressing?: na Non-Dialysis Use?: No Comment: Flows: Good If access problem, who was notified: Pre and Post-Assessment Patient Vitals for the past 8 hrs: Level of Consciousness Heart Rhythm O2 Device Bilateral Breath Sounds Skin Condition/Temp Abdomen Inspection Bowel Sounds (All Quadrants) 08/27/24 1330 Alert (0) Regular None (Room air) Clear Warm;Dry Soft Audible 08/27/24 1639 Alert (0) Regular -- -- -- -- -- Labs Lab Results Component Value Date/Time WBC 6.3 08/27/2024215 HGB 10.5 (L) 08/27/2024215 HCT 32.3 (L) 08/27/2024215 PLT 215 08/27/2024215 NA 134 (L) 08/27/2024215 K 4.0 08/27/2024215 CL 102 08/27/2024215 CO2 24 08/27/2024215 BUN 36 (H) 08/27/2024215 CREATININE 6.32 (H) 08/27/2024215 CALCIUM 9.5 08/27/2024 021 PHOS 2.9 08/27/2024215 IV Drips and Rate/Dose Continuous Meds[3] Safety - Before each treatment: Dialysis Machine No.: [id number] RO Machine Number: [id number] Dialyzer Lot No.: [id number] Tubing Lot Number: [id number] All Connections Secure: Yes Venous Parameters Set: Yes Arterial Parameters Set: Yes NS Bag: Yes Saline Line Double Clamped: Yes Dialyzer: Revaclear 300 Prime Volume (mL): 200 mL RO Machine Number: [id number] RO Machine Log Sheet Completed: Yes Machine Alarm Self Test: Completed, Passed (08/27/24 1300) Air Foam Detector: Tested, Proper Function, pH Reading Extracorporeal Circuit Tested for Integrity: Yes Machine Conductivity: 13..8 Manual Conductivity: 13.8 Manual Ph: 7.14 Bleach Test (Neg): Yes Bath Temperature: 36 C (96.8 F) Conductivity Meter Serial #: [id number] Machine Functioning Alarm Free? Yes Dialysis Bath: K+ (Potassium): 3 Ca+ (Calcium): 2.5 Na+ (Sodium): 137 HCO3 (Bicarb): 32 Bicarbonate Concentrate Lot No.: [id number] Acid Concentrate Lot No.: [id number] Chlorine Testing - Before each treatment and every 4 hours: Time On: 1339 Time Off: 1639 Treatment Goal: 1L Weight Height: 180.3 cm (5' 11) (08/23/24 1031) Weight: 89.7 kg (197 lb 12.8 oz) (08/25/24 1100) BMI (Calculated): 27.6 (08/25/24 1100) 1st check: less than 0.1 ppm at: 1145 2nd check: less than 0.1 ppm at: 1445 3rd check: Not Applicable (if greater than 0.1 ppm, then check every 30 minutes from secondary) Access Flows and Pressures Patient Vitals for the past 8 hrs: Blood Flow Rate (mL/min) Ultrafiltration Rate (ml/hr) Arterial Pressure (mmHg) Venous Pressure (mmHg) TMP DFR Access Visible Intra-Hemodialysis Comments 08/27/24 1330 -- -- -- -- -- -- Yes pt aware of call light within reach and educated on use of call light 08/27/24 1339 200 mL/min 500 ml/hr -30 mmHg 100 mmHg 40 500 Yes tx iniated lines secured pt stable 08/27/24 1341 250 mL/min 500 ml/hr -100 mmHg 150 mmHg 70 500 Yes bfr increased 08/27/24 1345 250 mL/min 500 ml/hr -120 mmHg 170 mmHg 70 500 Yes Pt alert watching tv. Rmvd 61. Pt has the call light. 08/27/24 1400 250 mL/min 500 ml/hr -120 mmHg 160 mmHg 70 500 Yes Pt alert resting. Rmvd 181. Lines secure. 08/27/24 1415 250 mL/min 500 ml/hr -130 mmHg 150 mmHg 70 500 Yes Pt sleeping. Lines secure. Rmvd 325. 08/27/24 1431 250 mL/min 500 ml/hr -130 mmHg 160 mmHg 70 500 Yes Pt sleeping. Rmvd 426. Lines secure. Call light in reach. 08/27/24 1445 250 mL/min 500 ml/hr -130 mmHg 160 mmHg 70 500 Yes Pt sleeping. Stable. Rmvd 554. 08/27/24 1500 250 mL/min 500 ml/hr -130 mmHg 160 mmHg 70 500 Yes Pt sleeping. Rmvd 682. Call light in reach0. 08/27/24 1518 250 mL/min 500 ml/hr -130 mmHg 160 mmHg 80 500 Yes Pt sleeping rmvd 806. Stable. 08/27/24 1530 250 mL/min 500 ml/hr -130 mmHg 160 mmHg 80 500 Yes Pt alert on phone rmvd 930. Lines secure. Pt has the call light. 08/27/24 1545 250 mL/min 500 ml/hr -130 mmHg 160 mmHg 80 500 Yes Pt alert bon the pt stable Rmvd 1054. 08/27/24 1600 250 mL/min 500 ml/hr -130 mmHg 160 mmHg 80 500 Yes Pt alert stable rmvd 1168. Pt on phone. 08/27/24 1615 250 mL/min 500 ml/hr -120 mmHg 170 mmHg 70 500 Yes Pt alert on his phone. Rmvd 1291. Stable. 08/27/24 1630 250 mL/min 500 ml/hr -120 mmHg 170 mmHg 701 500 Yes Pt stable watching tv rmvd 1458 08/27/24 1639 -- -- -- -- -- -- Yes tx complete pt stable 1500 uf removed Vital Signs Patient Vitals for the past 24 hrs: BP Temp Temp src Pulse Resp SpO2 08/27/24 1738 (!) 172/89 36.6 C (97.9 F) Temporal 98 20 96 % 08/27/24 1645 152/86 -- -- 90 -- -- 08/27/24 1639 156/90 37 C (98.6 F) -- 91 16 95 % 08/27/24 1630 136/76 -- -- 92 -- -- 08/27/24 1615 133/98 -- -- 107 -- -- 08/27/24 1600 125/72 -- -- 93 -- -- 08/27/24 1545 136/88 -- -- 93 -- -- 08/27/24 1530 142/83 -- -- 88 -- -- 08/27/24 1518 158/98 -- -- 92 -- -- 08/27/24 1500 158/88 -- -- 91 -- -- 08/27/24 1445 141/84 -- -- 90 -- -- 08/27/24 1431 137/80 -- -- 82 -- -- 08/27/24 1415 141/84 -- -- 83 -- -- 08/27/24 1400 141/85 -- -- 91 -- -- 08/27/24 1345 151/86 -- -- 84 -- -- 08/27/24 1341 148/82 -- -- 90 -- -- 08/27/24 1339 149/86 -- -- 88 -- -- 08/27/24 1330 147/85 36.4 C (97.6 F) -- 93 16 95 % 08/27/24 0733 (!) 185/99 36.4 C (97.5 F) Temporal 95 -- 98 % 08/26/24 2353 (!) 163/81 36.4 C (97.6 F) Temporal 92 16 97 % 08/26/242026 157/94 36.4 C (97.5 F) Temporal 99 18 96 % Post-Dialysis Arterial Catheter Locking Solution: Not Applicable Venous Catheter Locking Solution: Not Applicable Post-Treatment Procedures: Blood returned, Access bleeding time < 10 minutes Machine Disinfection Process: Exterior Machine Disinfection Rinseback Volume (mL): 300 mL Total Liters Processed (L/min): 42.4 L/min Dialyzer Clearance: Lightly streaked Hemodialysis Intake (ml): 500 ml Hemodialysis Output (ml): 1500 ml NET Removed (ml): 1000 ml Tolerated Treatment: Good Patient Response to Treatment: stable Physician Notified: No Patient Disposition: Return to room Charge: $ IP Hemodialysis Charge: Hemodialysis Provider Notification Provider Notification Reason for Communication: Review case Provider Name: Dr Barros Provider Role: Attending physician Method of Communication: Secure chat Response: Waiting for response Notification Date: 08/27/24 Notification Time: 1741 Reason for Communication: Review case Provider Role: Attending physician Method of Communication: Secure chat Response: Waiting for response Notification Time: 1741 Handoff complete and report given to Primary RN at 1700. Primary RN (First Initial, Last Name, Title): Kathi Lopez RN Education Person Educated: Patient Knowledge Base: Minimal Barriers to Learning?: None Preferred method of Learning: Oral Topic(s): call light, Access Care, Signs and Symptoms of Infection, and Fluid Management Teaching Tools: Demonstration Response to Education: Verbalized Understanding [1] No Known Allergies [2] Patient Active Problem List Diagnosis History of myocardial infarction MSSA bacteremia Complication associated with dialysis catheter Sepsis due to methicillin susceptible Staphylococcus aureus (MSSA) without acute organ dysfunction (CMS/HCC) (HCC) [3] Ok per primary to take shower Patient Name: Farrah Gonzales Patient : 1980 Acct: [id number] Date of Admission: 08/23/2024 Room[facility]Bed: [facility] A Code Status: Full Code Allergies: Allergies[1] Diagnosis: Problem List[2] Treatment: Hemodialysis 1:1 Priority: Routine Location: Bedside Diabetic: Yes NPO: No Isolation Precautions: Contact Consent for Treatment Verified: Yes Blood Consent Verified: Not Applicable ICEBOAT: Identify, Consent, Equipment, HepB Status, Orders Complete, Access Verified, Timeliness Second Clinician Verifying: Hayde Coe RN Time out performed prior to access at 1702. Report Received from Primary RN at 1600. Primary RN (First Initial, Last Name, Title): Hayde Coe RN Incapacitated Nurse Education Completed: Yes S.B. HBsAg ONLY: Date Drawn: August 10, 2024 Results: Negative HBsAb: Date Drawn: August 10, 2024 Results: Immune >10 Order Dialyzer: Nipro Na+ Modeling: Not Applicable Dialysate Temperature (C): 36 Blood Flow Rate (BFR): 200 Dialysate Flow Rate (DFR): 600 Access to be Utilized Access: AVF Location: Upper Extremity Side: Left Needle gauge: 17 + Bruit/Thrill: Yes First Use X-ray Verified: Not Applicable OK to use line order: Not Applicable Site Assessment: Signs and Symptoms of Infection/Inflammation: None If yes: Not Applicable Dressing: NA Site Prep: Medical Aseptic Technique Dressing Changed this Treatment: NA Flows: Good If access problem, who was notified: Pre and Post-Assessment Patient Vitals for the past 8 hrs: Level of Consciousness Oriented X Heart Rhythm O2 Device Bilateral Breath Sounds Skin Color Skin Condition/Temp Abdomen Inspection Bowel Sounds (All Quadrants) RUE Edema LUE Edema RLE Edema LLE Edema 08/25/24 1400 -- -- -- -- Clear -- Warm;Dry Soft;Rounded Active -- -- -- -- 08/25/241655 Alert (0) 4 Other (Comment) None (Room air) Clear Mccaskill Warm;Dry Soft;Flat Active None None None None Labs Lab Results Component Value Date/Time WBC 6.8 08/25/2024518 HGB 9.6 (L) 08/25/2024 0519 HCT 28.2 (L) 08/25/2024518 PLT 171 08/25/2024 05 NA 135 (L) 08/25/2024 05 K 3.5 08/25/2024 05 CL 98 08/25/2024 05 CO2 24 08/25/2024 05 BUN 43 (H) 08/25/2024 05 CREATININE 7.05 (H) 08/25/2024518 CALCIUM 9.5 08/25/2024 0519 PHOS 3.9 08/25/2024 0519 IV Drips and Rate/Dose Continuous Meds[3] Safety - Before each treatment: Dialysis Machine No.: [id number] RO Machine Number: [id number] Dialyzer Lot No.: [id number] Tubing Lot Number: [id number] All Connections Secure: Yes Venous Parameters Set: Yes Arterial Parameters Set: Yes NS Bag: Yes Saline Line Double Clamped: Yes Dialyzer: Nipro Prime Volume (mL): 200 mL RO Machine Number: [id number] RO Machine Log Sheet Completed: Yes Machine Alarm Self Test: Completed, Passed (1655) (08/25/241655) Air Foam Detector: Tested, Proper Function, pH Reading Extracorporeal Circuit Tested for Integrity: Yes Machine Conductivity: 14.0 Manual Conductivity: 13.8 Manual Ph: 7.4 Bleach Test (Neg): Yes Bath Temperature: 36 C (96.8 F) Conductivity Meter Serial #: [id number] Machine Functioning Alarm Free? Yes Dialysis Bath: K+ (Potassium): 3 Ca+ (Calcium): 2.5 Na+ (Sodium): 137 HCO3 (Bicarb): 32 Bicarbonate Concentrate Lot No.: [id number] Acid Concentrate Lot No.: [id number] Chlorine Testing - Before each treatment and every 4 hours: Time On: 1707 Time Off: 5 Treatment Goal: 2000 Weight Height: 180.3 cm (5' 11) (08/23/24 1031) Weight: 89.7 kg (197 lb 12.8 oz) (08/25/24 1100) BMI (Calculated): 27.6 (08/25/24 1100) 1st check: less than 0.1 ppm at: 1655 2nd check: less than 0.1 ppm at: 1900 3rd check: Not Applicable (if greater than 0.1 ppm, then check every 30 minutes from secondary) Access Flows and Pressures Patient Vitals for the past 8 hrs: Blood Flow Rate (mL/min) Ultrafiltration Rate (ml/hr) Arterial Pressure (mmHg) Venous Pressure (mmHg) TMP DFR Access Visible Intra-Hemodialysis Comments 08/25/24 1707 150 mL/min 500 ml/hr -10 mmHg 110 mmHg 70 600 Yes Tx started, Lines secured, Call light in reach. 08/25/24 1715 200 mL/min 500 ml/hr -40 mmHg 150 mmHg 70 600 Yes Pt tolerating tx, UF removed 126 08/25/24 1730 200 mL/min 500 ml/hr -50 mmHg 170 mmHg 70 600 Yes pt watching TV, UF removed 215 08/25/24 1745 200 mL/min 500 ml/hr -40 mmHg 150 mmHg 70 600 Yes pt alert, Pleasent to staff, UF removed 391 08/25/24 1800 200 mL/min 500 ml/hr -40 mmHg 150 mmHg 70 600 Yes Pt tolerating Tx well, UF removed 521 08/25/24 1815 200 mL/min 500 ml/hr -40 mmHg 150 mmHg 70 600 Yes UF removed 669 08/25/24 1830 200 mL/min 500 ml/hr -40 mmHg 180 mmHg 70 600 Yes pt alert, UF removed 755 08/25/24 1845 200 mL/min 500 ml/hr -50 mmHg 150 mmHg 80 600 Yes Pt tolerating tx, UF removed 882 08/25/24 1900 200 mL/min 500 ml/hr -50 mmHg 150 mmHg 80 600 Yes Pt family at bedside 989 08/25/24 1915 200 mL/min 500 ml/hr -50 mmHg 160 mmHg 80 600 Yes Pt visiting with family, UF removed 1155 08/25/24 1930 200 mL/min 500 ml/hr -50 mmHg 160 mmHg 80 600 Yes O signs of distress 08/25/24 194 200 mL/min 500 ml/hr -60 mmHg 160 mmHg 70 600 Yes Pt tolerating Tx well, UF removed 1348 08/25/24 2000 200 mL/min 500 ml/hr -50 mmHg 160 mmHg 70 600 Yes pt tolerated tx well. UF 1462 Vital Signs Patient Vitals for the past 24 hrs: BP Temp Temp src Pulse Resp SpO2 Weight 08/25/242029 159/74 36.1 C (97 F) -- 106 16 97 % -- 08/25/241999 158/89 -- -- 109 -- -- -- 08/25/24 194 (!) 164/87 -- -- 109 -- -- -- 08/25/24 193 146/86 -- -- 109 -- -- -- 08/25/24 191 155/90 -- -- 112 -- -- -- 08/25/24 1900 (!) 170/98 -- -- 108 -- -- -- 08/25/24 1845 (!) 195/129 -- -- 108 -- -- -- 08/25/24 1830 (!) 162/94 -- -- 108 -- -- -- 08/25/24 1815 (!) 173/100 -- -- 108 -- -- -- 08/25/24 1800 (!) 166/94 -- -- 107 -- -- -- 08/25/24 1745 (!) 169/91 -- -- 107 -- -- -- 08/25/24 1730 (!) 175/98 -- -- 104 -- -- -- 08/25/24 1715 (!) 168/96 -- -- 104 -- -- -- 08/25/24 1707 (!) 177/98 -- -- 107 -- -- -- 08/25/24 1656 (!) 164/98 36.1 C (97 F) -- 107 16 98 % -- 08/25/24 1608 (!) 174/105 36.1 C (97 F) Temporal 107 16 97 % -- 08/25/24 1240 -- (!) 35.8 C (96.5 F) Temporal 108 -- 97 % -- 08/25/24 1100 -- -- -- -- -- -- 89.7 kg (197 lb 12.8 oz) 08/25/24 0837 145/85 36.9 C (98.5 F) Temporal 113 20 96 % -- 08/25/24 0620 (!) 184/103 36.6 C (97.8 F) Temporal 115 15 -- -- 08/24/24 2047 135/83 36.6 C (97.9 F) Temporal 100 15 96 % -- Post-Dialysis Arterial Catheter Locking Solution: Not Applicable Venous Catheter Locking Solution: Not Applicable Post-Treatment Procedures: Blood returned, Access bleeding time < 10 minutes Machine Disinfection Process: Acid/Vinegar Clean, Heat Disinfect, Exterior Machine Disinfection Rinseback Volume (mL): 300 mL Total Liters Processed (L/min): 49.1 L/min Dialyzer Clearance: Lightly streaked Hemodialysis Intake (ml): 500 ml Hemodialysis Output (ml): 1500 ml NET Removed (ml): 1000 ml Tolerated Treatment: Good Patient Response to Treatment: Stable Physician Notified: No Patient Disposition: Other (Comment) (remain in room) Charge: $ IP Hemodialysis Charge: Hemodialysis Provider Notification Provider Notification Reason for Communication: Review case Provider Name: dr barros Provider Role: Attending physician Method of Communication: Secure chat Response: No new orders Notification Date: 08/23/24 Notification Time: 1825 Reason for Communication: Review case Provider Role: Attending physician Method of Communication: Secure chat Response: No new orders Notification Time: 1825 Handoff complete and report given to Primary RN at 2009. Primary RN (First Initial, Last Name, Title): Hayde Coe RN Education Person Educated: Patient Knowledge Base: Substantial Barriers to Learning?: None Preferred method of Learning: Oral Topic(s): Access Care, Signs and Symptoms of Infection, and Procedural Teaching Tools: Explanation Response to Education: Verbalized Understanding [1] No Known Allergies [2] Patient Active Problem List Diagnosis History of myocardial infarction [3] Instructed patient to turn off insulin pump per endocrine order last pm. Patient confirmed insulin pump is off. CGM 344 CGM reading is 199 Patients CGM reading 207 Pt.'s insulin pump reading glucose 180 Patient Name: Farrah Gonzales Patient : 1980 Acct: [id number] Date of Admission: 08/23/2024 Room[facility]Bed: [facility] A Code Status: Full Code Allergies: Allergies[1] Diagnosis: Problem List[2] Treatment: Hemodialysis 1:1 Priority: Routine Location: Med/Surg/Tele Diabetic: Yes NPO: No Isolation Precautions: Droplet plus Consent for Treatment Verified: Yes Blood Consent Verified: Not Applicable ICEBOAT: Identify, Consent, Equipment, HepB Status, Orders Complete, Access Verified, Timeliness (O2 and suction setup at bedside) Second Clinician Verifying: Gonzales Thrasher RN Time out performed prior to access at 2010. Report Received from Primary RN at 1931. Primary RN (First Initial, Last Name, Title): Manjit Rolon RN Incapacitated Nurse Education Completed: Yes(Gonzales Thrasher RN) HBsAg ONLY: Date Drawn: August 09, 2024 Results: Negative HBsAb: Date Drawn: August 09, 2024 Results: Susceptible <10 Order Dialyzer: Nipro Na+ Modeling: Not Applicable Dialysate Temperature (C): 36 Blood Flow Rate (BFR): 400 Dialysate Flow Rate (DFR): 600 Access to be Utilized Access: Tunneled Catheter Location: Subclavian Side: Right Needle gauge: Not Applicable + Bruit/Thrill: Not Applicable First Use X-ray Verified: Present on admission OK to use line order: Yes Site Assessment: Signs and Symptoms of Infection/Inflammation: None If yes: Not Applicable Dressing: Dry and Intact Site Prep: Medical Aseptic Technique Dressing Changed this Treatment: Yes If yes, by whom: Pierre JERONIMO Date of Last Dressing Change: August 20, [address]?: No Red Alcohol Caps in place?: Yes Gauze Dressing?: Yes Non-Dialysis Use?: Yes Comment: Flows: Lines Reversed, Good, and Patent If access problem, who was notified: Pre and Post-Assessment Patient Vitals for the past 8 hrs: Level of Consciousness Oriented X Heart Rhythm Respiratory Pattern O2 Device Skin Color Skin Condition/Temp Abdomen Inspection Bowel Sounds (All Quadrants) RUE Edema LUE Edema RLE Edema LLE Edema Pre-Hemodialysis Comments Pain Interventions 08/23/241944 -- -- -- -- -- -- -- -- -- -- -- -- -- -- Repositioned 08/23/242015 Alert (0) 4 Other (Comment) -- None (Room air) Mccaskill Warm;Dry -- -- None None None None Incapacitated RN and Pt education done Medication (See MAR) 08/23/242357 Alert (0) 4 Other (Comment) Other (Comment) None (Room air) Mccaskill Warm;Dry Soft Active None None None None -- -- Labs Lab Results Component Value Date/Time WBC 20.3 (H) 08/23/2024 1300 HGB 10.4 (L) 08/23/2024 1300 HCT 29.5 (L) 08/23/2024 1300 PLT 177 08/23/2024 1300 NA 134 (L) 08/23/2024 1300 K 4.4 08/23/2024 1300 CL 99 08/23/2024 1300 CO2 20 (L) 08/23/2024 1300 BUN 59 (H) 08/23/2024 1300 CREATININE 9.57 (H) 08/23/2024 1300 CALCIUM 8.8 08/23/2024 1300 IV Drips and Rate/Dose Continuous Meds[3] Safety - Before each treatment: Dialysis Machine No.: [id number] RO Machine Number: [id number] Dialyzer Lot No.: [id number] Tubing Lot Number: [id number] All Connections Secure: Yes Venous Parameters Set: Yes Arterial Parameters Set: Yes NS Bag: Yes Saline Line Double Clamped: Yes Dialyzer: Nipro Prime Volume (mL): 200 mL RO Machine Number: [id number] RO Machine Log Sheet Completed: Yes Machine Alarm Self Test: Completed, Passed (At 2015) (08/23/242015) Air Foam Detector: Tested, Proper Function, pH Reading Extracorporeal Circuit Tested for Integrity: Yes Machine Conductivity: 13.8 Manual Conductivity: 13.6 Manual Ph: 7.2 Bleach Test (Neg): Yes Bath Temperature: 36 C (96.8 F) Conductivity Meter Serial #: [id number] Machine Functioning Alarm Free? Yes Dialysis Bath: K+ (Potassium): 3 Ca+ (Calcium): 2.5 Na+ (Sodium): 137 HCO3 (Bicarb): 32 Bicarbonate Concentrate Lot No.: [id number] Acid Concentrate Lot No.: [id number] Chlorine Testing - Before each treatment and every 4 hours: Time On: 2024 Time Off: 2324 Treatment Goal: 1L Weight Height: 180.3 cm (5' 11) (08/23/241030) Weight: 88.5 kg (195 lb) (08/23/241030) BMI (Calculated): 27.21 (08/23/241030) 1st check: less than 0.1 ppm at: 1999 2nd check: less than 0.1 ppm at: 0 3rd check: Not Applicable (if greater than 0.1 ppm, then check every 30 minutes from secondary) Access Flows and Pressures Patient Vitals for the past 8 hrs: Blood Flow Rate (mL/min) Ultrafiltration Rate (ml/hr) Arterial Pressure (mmHg) Venous Pressure (mmHg) TMP DFR Access Visible Intra-Hemodialysis Comments 08/23/242024 200 mL/min 570 ml/hr -70 mmHg 40 mmHg 80 600 Yes Tx initiated, lines secured 08/23/242029 400 mL/min 570 ml/hr -160 mmHg 130 mmHg 60 600 Yes BFR increased, UF 57mL 08/23/242044 400 mL/min 570 ml/hr -160 mmHg 140 mmHg 60 600 Yes Pt tolerating tx, UF 204mL 08/23/24 2100 400 mL/min 570 ml/hr -160 mmHg 140 mmHg 70 600 Yes No adverse reaction observed, UF 332mL 08/23/24 2115 400 mL/min 570 ml/hr -160 mmHg 140 mmHg 70 600 Yes Primary RN at bedside, UF 480mL 08/23/24 2130 400 mL/min 510 ml/hr -160 mmHg 140 mmHg 70 600 Yes Pt resting, UF 616mL 08/23/24 2145 400 mL/min 510 ml/hr -160 mmHg 140 mmHg 70 600 Yes Pt tolerating tx, UF 734mL 08/23/24 2200 400 mL/min 510 ml/hr -160 mmHg 140 mmHg 60 600 Yes Pt watching tv, UF 861mL 08/23/24 2215 400 mL/min 510 ml/hr -160 mmHg 140 mmHg 60 600 Yes Bicarb jug changed, UF 977mL 08/23/24 2230 400 mL/min 450 ml/hr -170 mmHg 140 mmHg 60 600 Yes Pt tolerating tx, UF 1086mL 08/23/24 2245 400 mL/min 450 ml/hr -160 mmHg 140 mmHg 60 600 Yes Pt resting, UF 1214mL 08/23/24 2248 -- -- -- -- -- -- -- BP rechecked 08/23/24 2300 400 mL/min 440 ml/hr -160 mmHg 150 mmHg 70 600 Yes Pt vomiting, UF 1342mL 08/23/24 2315 400 mL/min 490 ml/hr -150 mmHg 150 mmHg 60 600 Yes Pt resting, UF 1429mL 08/23/24 2325 200 mL/min -- -- -- -- -- Yes Tx completed, blood returned with no difficulty Vital Signs Patient Vitals for the past 24 hrs: BP Temp Temp src Pulse Resp SpO2 Height Weight 08/23/24 2358 142/83 37.6 C (99.7 F) Temporal (!) 127 22 99 % -- -- 08/23/242324 158/74 -- -- (!) 129 -- -- -- -- 08/23/242299 (!) 163/93 -- -- (!) 136 -- -- -- -- 08/23/242247 143/76 -- -- (!) 125 -- -- -- -- 08/23/242244 129/74 -- -- (!) 127 -- -- -- -- 08/23/242229 159/75 -- -- 113 -- -- -- -- 08/23/242214 151/81 -- -- 117 -- -- -- -- 08/23/242199 (!) 175/87 -- -- 120 -- -- -- -- 08/23/242144 (!) 165/90 -- -- 117 -- -- -- -- 08/23/242129 (!) 186/97 -- -- 114 -- -- -- -- 08/23/242114 (!) 179/101 -- -- 112 -- -- -- -- 08/23/242099 (!) 180/94 -- -- 109 -- -- -- -- 08/23/242044 (!) 178/99 -- -- 107 -- -- -- -- 08/23/242029 (!) 174/83 -- -- 110 -- -- -- -- 08/23/242024 (!) 172/104 -- -- 112 -- -- -- -- 08/23/241944 (!) 163/87 37.1 C (98.7 F) Temporal 107 17 99 % -- -- 08/23/24 1624 149/87 37 C (98.6 F) Temporal 102 16 97 % -- -- 08/23/24 1031 156/82 36.4 C (97.5 F) Temporal 108 20 100 % 1.803 m (5' 11) 88.5 kg (195 lb) Post-Dialysis Arterial Catheter Locking Solution: Heparin (1000units:1ml) Volume (ml): 1600 Venous Catheter Locking Solution: Heparin (1000units:1ml) Volume (ml): 1600 Post-Treatment Procedures: Blood returned, Catheter capped, clamped and heparinized x 2 ports Machine Disinfection Process: Exterior Machine Disinfection, Acid/Vinegar Clean, Heat Disinfect Rinseback Volume (mL): 300 mL Total Liters Processed (L/min): 67.3 L/min Dialyzer Clearance: Lightly streaked Hemodialysis Intake (ml): 500 ml Hemodialysis Output (ml): 1500 ml NET Removed (ml): 1000 ml Tolerated Treatment: Good Patient Response to Treatment: tx well tolerated Physician Notified: No Patient Disposition: (Remain in room) Charge: $ IP Hemodialysis Charge: Hemodialysis Provider Notification Provider Notification Reason for Communication: Review case Provider Name: dr barros Provider Role: Attending physician Method of Communication: Secure chat Response: No new orders Notification Date: 08/23/24 Notification Time: 1825 Reason for Communication: Review case Provider Role: Attending physician Method of Communication: Secure chat Response: No new orders Notification Time: 1825 Handoff complete and report given to Primary RN at 1017. Primary RN (First Initial, Last Name, Title): Manjit Rolon RN Education Person Educated: Patient Knowledge Base: Substantial Barriers to Learning?: None Preferred method of Learning: Oral Topic(s): Access Care, Signs and Symptoms of Infection, Fluid Management, and Procedural Teaching Tools: Explanation Response to Education: Verbalized Understanding [1] No Known Allergies [2] Patient Active Problem List Diagnosis History of myocardial infarction [3] Insulin Pump - (Patient Supplied), Fistula to Lfa/wrist is warm to touch, secure messaging to primary Blood sugar per patients omni pod 176 documented in this encounter [facility] 08-27-2024 Note Formatting of this note might be differe nt from the original. IV ancef continued. 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 ID following- waiting for culture results. OPAT to be written. Anticipate discharge home with no needs. T [facility] 08-27-2024 Note Formatting of this note might be differe nt from the original. IV ancef continued. Plan for halfway abx with dialysis. ID following- waiting for culture results. OPAT to be written. Anticipate discharge home with no needs. T [facility] 08-27-2024 Nurse Note Formatting of this note might be differe nt from the original. Ok per primary to take shower T [facility] 08-27-2024 Note Nephrology Progress Note Following for ESRD Pt seen in room no complaints or concerns HD later today Current Inpatient Medications: Reviewed on MAY. Vitals: BP (!) 185/99 Pulse 95 Temp 36.4 ?C (97.5 ?F) (Temporal) Resp 16 Ht 1.803 m (5' 11) Wt 89.7 kg (197 lb 12.8 oz) SpO2 98% BMI 27.59 kg/m? BLOOD PRESSURE RANGE: Systolic (24hrs), Av , Min:140 , Max:185 ; Diastolic (24hrs), Av, Min:78, Max:99 24HR INTAKE/OUTPUT: No intake or output data in the 24 hours ending 08/27/24 0855 Physical exam: Constitutional: nad Cardiovascular: Normal S1, S2 without m/r/g Respiratory: CTAB without w/r/r Abdomen: +bs, soft, nt, nd Ext: no lower extremity edema Data: Labs: Recent Labs 08/25/24 0519 08/26/24 0552 08/27/24 0216 WBC 6.8 4.2 6.3 HGB 9.6* 9.5* 10.5* HCT 28.2* 28.4* 32.3* MCV 89.8 90.7 92.0 PLT 171 171 215 Recent Labs 08/25/24 0519 08/26/24 0552 08/27/24 0216 NA 135* 135* 134* K 3.5 4.4 4.0 CL 98 102 102 CO2 24 23 24 GLUCOSE 128* 248* 168* CALCIUM 9.5 9.0 9.5 PHOS 3.9 2.9 2.9 MG 2.1 2.1 2.1 BUN 43* 30* 36* CREATININE 7.05* 5.33* 6.32* Assessment and Plan: 44 y.o. male with PMH of diabetes, hypertension, end-stage renal disease admitted to the hospital with sepsis. 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 - Bp acceptable - UF as tolerated with HD Hyponatremia. Likely from poor solute intake - should improve with HD - check Sna in AM Anemia in CKD. Hgb below goal - KELLI as OP - follow H&H - blood TF per primary team hgb <7 CKDMBD. Not on binders at this time - check phos in AM - phos gaol 3.5-5.5 MSSA Bacteremia Antimicrobials,Start/End Dates: Cefazolin: 08/24- present Pip-Tazo: 08/23-08/24 Vanc: 08/23 ID following Plan - continue HD MWF, currently on line holiday due to bacteremia will not need line rep;laced now using AVF -has mature AVF in L [place], used for HD & tolerated well -hd later today - monitor volume status electrolytes daily Thank you for allowing me to care for pt. Feel free to reach out with any questions or concerns Kim Blackwell APRN MEDICAL LABORATORY SPECIALIST A-G OCCUPATIONAL THERAPY INSTRUCTOR [facility] [place] [phone] Pt seen and examined independently by me. I reviewed with REEMA-MEDICAL LABORATORY SPECIALIST the medical history and the findings on physical examination. I discussed the patient?s diagnosis and concur with the treatment plan as documented in his note. Please call [phone] or message me through bitHound with any questions or concerns. [facility] 08-27-2024 Plan of care note Formatting of this note might be differe nt from the original. Problem: Knowledge Deficit Goal: Patient/family/caregiver demonstrates understanding of disease process, treatment plan, medications, and discharge instructions Outcome: Progressing Problem: Potential for Compromised Skin Integrity Goal: Skin Integrity is Maintained or Improved Outcome: Progressing [facility] 08-26-2024 Note [facility] - Infectious Diseases Advanced Practice Provider Progress Note Subjective: Following patient for MSSA bacteremia s/p TDC removal 08/24. Notes reviewed. Patient reports feeling better overall. Reports nausea and vomiting has resolved. Denies fever, chills, CP, SOB, abdominal pain, and any new bowel or urinary issues. No other new exacerbating or alleviating factors. Objective: Vitals: Patient Vitals for the past 24 hrs: BP Temp Temp src Pulse Resp SpO2 08/26/24 1226 140/78 37.1 ?C (98.7 ?F) Temporal 90 16 97 % 08/26/24 1004 157/89 -- -- 102 -- -- 08/26/24 0844 (!) 194/112 -- -- -- -- -- 08/26/24 0842 (!) 196/118 (!) 35.9 ?C (96.6 ?F) Temporal 111 20 94 % 08/26/24 0341 158/88 36.8 ?C (98.3 ?F) Temporal 98 18 96 % 08/25/24 2343 144/96 37.2 ?C (98.9 ?F) Temporal 109 17 94 % 08/25/24 2144 155/85 -- -- -- -- -- 08/25/24 2133 (!) 189/108 36.1 ?C (96.9 ?F) Temporal 111 15 97 % 08/25/24 2030 159/74 36.1 ?C (97 ?F) -- 106 16 97 % 08/25/241999 158/89 -- -- 109 -- -- 08/25/24 1945 (!) 164/87 -- -- 109 -- -- 08/25/24 1930 146/86 -- -- 109 -- -- 08/25/24 1915 155/90 -- -- 112 -- -- 08/25/24 1900 (!) 170/98 -- -- 108 -- -- 08/25/24 1845 (!) 195/129 -- -- 108 -- -- 08/25/24 1830 (!) 162/94 -- -- 108 -- -- 08/25/24 1815 (!) 173/100 -- -- 108 -- -- 08/25/24 1800 (!) 166/94 -- -- 107 -- -- 08/25/24 1745 (!) 169/91 -- -- 107 -- -- 08/25/24 1730 (!) 175/98 -- -- 104 -- -- 08/25/24 1715 (!) 168/96 -- -- 104 -- -- 08/25/24 1707 (!) 177/98 -- -- 107 -- -- 08/25/24 1656 (!) 164/98 36.1 ?C (97 ?F) -- 107 16 98 % 08/25/24 1608 (!) 174/105 36.1 ?C (97 ?F) Temporal 107 16 97 % Physical Exam: Physical Exam Vitals and nursing note reviewed. Constitutional: General: He is not in acute distress. Appearance: Normal appearance. He is normal weight. He is not ill-appearing. Comments: NAD seen ambulating in room. Interactive, cooperative, conversant HENT: Head: Normocephalic and atraumatic. Right Ear: External ear normal. Left Ear: External ear normal. Nose: Nose normal. Mouth/Throat: Mouth: Mucous membranes are moist. Pharynx: Oropharynx is clear. Eyes: Extraocular Movements: Extraocular movements intact. Conjunctiva/sclera: Conjunctivae normal. Pupils: Pupils are equal, round, and reactive to light. Cardiovascular: Rate and Rhythm: Normal rate and regular rhythm. Pulses: Normal pulses. Heart sounds: Normal heart sounds. Pulmonary: Effort: Pulmonary effort is normal. Breath sounds: Normal breath sounds. No wheezing, rhonchi or rales. Comments: Breathing comfortably on room air. No wheezes, rales, rhonchi Abdominal: General: Abdomen is flat. Bowel sounds are normal. There is no distension. Palpations: Abdomen is soft. Tenderness: There is no abdominal tenderness. There is no guarding. Musculoskeletal: Right lower leg: No edema. Left lower leg: No edema. Skin: General: Skin is warm and dry. Comments: R chest TDC removal site dressed. L AVF Neurological: General: No focal deficit present. Mental Status: He is alert and oriented to person, place, and time. Psychiatric: Mood and Affect: Mood normal. Behavior: Behavior normal. Labs: Recent Labs 08/23/24 1300 08/24/24 0412 08/25/24 0519 08/26/24 0552 NA 134* 135* 135* 135* K 4.4 4.0 3.5 4.4 CL 99 101 98 102 CO2 20* 19* 24 23 BUN 59* 27* 43* 30* CREATININE 9.57* 5.47* 7.05* 5.33* GLUCOSE 224* 140* 128* 248* CALCIUM 8.8 8.8 9.5 9.0 PROT 6.4 6.2* 6.7 6.3* 6.3* BILITOT 0.5 0.5 0.4 0.3 0.3 ALKPHOS 85 80 128 206* 206* AST 22 81* 110* 114* 114* ALT 10 37 63* 109* 109* PROCAL 5.94* -- -- -- Recent Labs 08/24/24 0412 08/25/24 0519 08/26/24 0552 WBC 10.7 6.8 4.2 HGB 9.6* 9.6* 9.5* HCT 28.3* 28.2* 28.4* PLT 153 171 171 LYMPHOPCT 3.7* 10.0* 24.8 MONOPCT 6.9 7.4 15.0* BASOPCT 0.4 0.4 1.0 NEUTROABS 9.4* 5.3 2.3 Micro: No results for input(s): COVID19 in the last 72 hours. 08/23 Blood Cx: 2/2 MSSA 08/23 Resp PCR panel: neg 08/24 Strep/Legionella Ag: neg 08/24 Sputum Cx: cancelled dt poor quality 08/25 Blood Cx: NGTD 08/25 C diff PCR: neg Lines: R chest TDC L AVF Radiography/Echo/Other: 08/23 CXR No acute cardiopulmonary disease. 08/23 CT chest/abd/pelvis 1. CT CHEST --- There are no definite infiltrates masses or pleural effusions Right jugular tunneled dialysis catheter, left coronary artery stent with calcified plaquing. 2. CT ABDOMEN--- There is a heterogeneous large 7.7 cm MASS right lobe liver. Aortoiliac calcified plaquing with probable punctate areas of left renal artery calcification. Question of punctate gallbladder calculi or hyperdense small areas of sludge. 3. CT PELVIS--- There is a normal appendix with no free fluid or free air. Moderate amount of stool in colon with few small scattered colonic diverticuli. 08/25 TTE Left Ventricle: Left ventricle size is normal. Mildly increased wall thickne (more content not included)... [facility] 08-26-2024 Note Formatting of this note might be differe nt from the original. IV ancef continued. Repeat cultures pending. 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 Nephrology following. Anticipate discharge home with no needs. [facility] 08-26-2024 Note Formatting of this note might be differe nt from the original. IV ancef continued. Repeat cultures pending. 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 Nephrology following. Anticipate discharge home with no needs. [facility] 08-26-2024 Note Nephrology Progress Note Following for ESRD mgt Pt seen in room had CVC removed 08/24 for line holiday Has current LAVF placed 07/2023 tolerated HD yesterday via AVF UF 1L No complaints today Interested in HHD discussed with pt Current Inpatient Medications: Reviewed on MAY. Vitals: BP (!) 194/112 (BP Location: Right arm) Pulse 111 Temp (!) 35.9 ?C (96.6 ?F) (Temporal) Resp 20 Ht 1.803 m (5' 11) Wt 89.7 kg (197 lb 12.8 oz) SpO2 94% BMI 27.59 kg/m? BLOOD PRESSURE RANGE: Systolic (24hrs), Av , Min:144 , Max:196 ; Diastolic (24hrs), Av, Min:74, Max:129 24HR INTAKE/OUTPUT: Intake/Output Summary (Last 24 hours) at 08/26/2024 0951 Last data filed at 08/25/2024 2205 Gross per 24 hour Intake 540 ml Output -- Net 540 ml Physical exam: Constitutional: NAD Cardiovascular: Normal S1, S2 without m/r/g Respiratory: CTAB without w/r/r Abdomen: +bs, soft, nt, nd Ext: no lower extremity edema Data: Labs: Recent Labs 08/24/24 0412 08/25/24 0519 08/26/24 0552 WBC 10.7 6.8 4.2 HGB 9.6* 9.6* 9.5* HCT 28.3* 28.2* 28.4* MCV 89.8 89.8 90.7 PLT 153 171 171 Recent Labs 08/24/24 0412 08/25/24 0519 08/26/24 0552 NA 135* 135* 135* K 4.0 3.5 4.4 CL 101 98 102 CO2 19* 24 23 GLUCOSE 140* 128* 248* CALCIUM 8.8 9.5 9.0 PHOS 2.9 3.9 2.9 MG 1.9 2.1 2.1 BUN 27* 43* 30* CREATININE 5.47* 7.05* 5.33* Assessment and Plan: 44 y.o. male with PMH of diabetes, hypertension, end-stage renal disease admitted to the hospital with sepsis. 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 - Bp acceptable - UF as tolerated with HD Hyponatremia. Likely from poor solute intake - should improve with HD - check Sna in AM Anemia in CKD. Hgb below goal - KELLI as OP - follow H&H - blood TF per primary team hgb <7 CKDMBD. Not on binders at this time - check phos in AM - phos gaol 3.5-5.5 MSSA Bacteremia Antimicrobials,Start/End Dates: Cefazolin: 08/24- present Pip-Tazo: 08/23-08/24 Vanc: 08/23 ID following Plan - continue HD MWF, currently on line holiday due to bacteremia -has mature AVF in L [place], used for HD & tolerated well - monitor volume status electrolytes daily -check phos in am Thank you for allowing me to care for pt. Feel free to reach out with any questions or concerns Kim Blackwell APRN MEDICAL LABORATORY SPECIALIST A-G OCCUPATIONAL THERAPY INSTRUCTOR [facility] [place] [phone] Pt seen and examined independently by me. I reviewed with , REEMA-DEJAH the medical history and the findings on physical examination. I discussed the patient?s diagnosis and concur with the treatment plan as documented in his note. Please call [phone] or message me through bitHound with any questions or concerns. [facility] 08-25-2024 Nurse Note Formatting of this note is different fro m the original. Patient Name: Farrah Gonzales Patient : 1980 Acct: [id number] Date of Admission: 08/23/2024 Room/Bed: [facility] A Code Status: Full Code Allergies: Allergies[1] Diagnosis: Problem List[2] Treatment: Hemodialysis 1:1 Priority: Routine Location: Bedside Diabetic: Yes NPO: No Isolation Precautions: Contact Consent for Treatment Verified: Yes Blood Consent Verified: Not Applicable ICEBOAT: Identify, Consent, Equipment, HepB Status, Orders Complete, Access Verified, Timeliness Second Clinician Verifying: Hayde Coe RN Time out performed prior to access at 1702. Report Received from Primary RN at 1600. Primary RN (First Initial, Last Name, Title): Hayde Coe RN Incapacitated Nurse Education Completed: Yes S.B. HBsAg ONLY: Date Drawn: August 10, 2024 Results: Negative HBsAb: Date Drawn: August 10, 2024 Results: Immune >10 Order Dialyzer: Nipro Na+ Modeling: Not Applicable Dialysate Temperature (C): 36 Blood Flow Rate (BFR): 200 Dialysate Flow Rate (DFR): 600 Access to be Utilized Access: AVF Location: Upper Extremity Side: Left Needle gauge: 17 + Bruit/Thrill: Yes First Use X-ray Verified: Not Applicable OK to use line order: Not Applicable Site Assessment: Signs and Symptoms of Infection/Inflammation: None If yes: Not Applicable Dressing: NA Site Prep: Medical Aseptic Technique Dressing Changed this Treatment: NA Flows: Good If access problem, who was notified: Pre and Post-Assessment Patient Vitals for the past 8 hrs: Level of Consciousness Oriented X Heart Rhythm O2 Device Bilateral Breath Sounds Skin Color Skin Condition/Temp Abdomen Inspection Bowel Sounds (All Quadrants) RUE Edema LUE Edema RLE Edema LLE Edema 08/25/24 1400 -- -- -- -- Clear -- Warm;Dry Soft;Rounded Active -- -- -- -- 08/25/241655 Alert (0) 4 Other (Comment) None (Room air) Clear [place] Warm;Dry Soft;Flat Active None None None None Labs Lab Results Component Value Date/Time WBC 6.8 08/25/2024518 HGB 9.6 (L) 08/25/2024 0519 HCT 28.2 (L) 08/25/2024 05 PLT 171 08/25/2024 05 NA 135 (L) 08/25/2024 05 K 3.5 08/25/2024 05 CL 98 08/25/2024 05 CO2 24 08/25/2024 05 BUN 43 (H) 08/25/2024518 CREATININE 7.05 (H) 08/25/2024 05 CALCIUM 9.5 08/25/2024 0519 PHOS 3.9 08/25/2024 0519 IV Drips and Rate/Dose Continuous Meds[3] Safety - Before each treatment: Dialysis Machine No.: [id number] RO Machine Number: [id number] Dialyzer Lot No.: [id number] Tubing Lot Number: [id number] [employer] Secure: Yes Venous Parameters Set: Yes Arterial Parameters Set: Yes NS Bag: Yes Saline Line Double Clamped: Yes Dialyzer: Nipro Prime Volume (mL): 200 mL RO Machine Number: [id number] RO Machine Log Sheet Completed: Yes Machine Alarm Self Test: Completed, Passed (1655) (08/25/241655) Air Foam Detector: Tested, Proper Function, pH Reading Extracorporeal Circuit Tested for Integrity: Yes Machine Conductivity: 14.0 Manual Conductivity: 13.8 Manual Ph: 7.4 Bleach Test (Neg): Yes Bath Temperature: 36 C (96.8 F) Conductivity Meter Serial #: [id number] Machine Functioning Alarm Free? Yes Dialysis Bath: K+ (Potassium): 3 Ca+ (Calcium): 2.5 Na+ (Sodium): 137 HCO3 (Bicarb): 32 Bicarbonate Concentrate Lot No.: [id number] Acid Concentrate Lot No.: [id number] Chlorine Testing - Before each treatment and every 4 hours: Time On: 1707 Time Off: 5 Treatment Goal: 2000 Weight Height: 180.3 cm (5' 11) (08/23/24 1031) Weight: 89.7 kg (197 lb 12.8 oz) (08/25/24 1100) BMI (Calculated): 27.6 (08/25/24 1100) 1st check: less than 0.1 ppm at: 1655 2nd check: less than 0.1 ppm at: 1900 3rd check: Not Applicable (if greater than 0.1 ppm, then check every 30 minutes from secondary) Access Flows and Pressures Patient Vitals for the past 8 hrs: Blood Flow Rate (mL/min) Ultrafiltration Rate (ml/hr) Arterial Pressure (mmHg) Venous Pressure (mmHg) TMP DFR Access Visible Intra-Hemodialysis Comments 08/25/24 1707 150 mL/min 500 ml/hr -10 mmHg 110 mmHg 70 600 Yes Tx started, Lines secured, Call light in reach. 08/25/24 1715 200 mL/min 500 ml/hr -40 mmHg 150 mmHg 70 600 Yes Pt tolerating tx, UF removed 126 08/25/24 1730 200 mL/min 500 ml/hr -50 mmHg 170 mmHg 70 600 Yes pt watching TV, UF removed 215 08/25/24 1745 200 mL/min 500 ml/hr -40 mmHg 150 mmHg 70 600 Yes pt alert, Pleasent to staff, UF removed 391 08/25/24 1800 200 mL/min 500 ml/hr -40 mmHg 150 mmHg 70 600 Yes Pt tolerating Tx well, UF removed 521 08/25/24 1815 200 mL/min 500 ml/hr -40 mmHg 150 mmHg 70 600 Yes UF removed 669 08/25/24 1830 200 mL/min 500 ml/hr -40 mmHg 180 mmHg 70 600 Yes pt alert, UF removed 755 08/25/24 1845 200 mL/min 500 ml/hr -50 mmHg 150 mmHg 80 600 Yes Pt tolerating tx, UF removed 882 08/25/24 1900 200 mL/min 500 ml/hr -50 mmHg 150 mmHg 80 600 Yes Pt family at bedside 989 08/25/24 1915 200 mL/min 500 ml/hr -50 mmHg 160 mmHg 80 600 Yes Pt visiting with family, UF removed 1155 08/25/24 1930 200 mL/min 500 ml/hr -50 mmHg 160 mmHg 80 600 Yes O signs of distress 08/25/24 1945 200 mL/min 500 ml/hr -60 mmHg 160 mmHg 70 600 Yes Pt tolerating Tx well, UF removed 1348 08/25/24 2000 200 mL/min 500 ml/hr -50 mmHg 160 mmHg 70 600 Yes pt tolerated tx well. UF 1462 Vital Signs Patient Vitals for the past 24 hrs: BP Temp Temp src Pulse Resp SpO2 Weight 08/25/242029 159/74 36.1 C (97 F) -- 106 16 97 % -- 08/25/241999 158/89 -- -- 109 -- -- -- 08/25/24 194 (!) 164/87 -- -- 109 -- -- -- 08/25/24 1930 146/86 -- -- 109 -- -- -- 08/25/24 1915 155/90 -- -- 112 -- -- -- 08/25/24 1900 (!) 170/98 -- -- 108 -- -- -- 08/25/24 1845 (!) 195/129 -- -- 108 -- -- -- 08/25/24 1830 (!) 162/94 -- -- 108 -- -- -- 08/25/24 1815 (!) 173/100 -- -- 108 -- -- -- 08/25/24 1800 (!) 166/94 -- -- 107 -- -- -- 08/25/24 1745 (!) 169/91 -- -- 107 -- -- -- 08/25/24 1730 (!) 175/98 -- -- 104 -- -- -- 08/25/24 1715 (!) 168/96 -- -- 104 -- -- -- 08/25/24 1707 (!) 177/98 -- -- 107 -- -- -- 08/25/24 1656 (!) 164/98 36.1 C (97 F) -- 107 16 98 % -- 08/25/24 1608 (!) 174/105 36.1 C (97 F) Temporal 107 16 97 % -- 08/25/24 1240 -- (!) 35.8 C (96.5 F) Temporal 108 -- 97 % -- 08/25/24 1100 -- -- -- -- -- -- 89.7 kg (197 lb 12.8 oz) 08/25/24 0837 145/85 36.9 C (98.5 F) Temporal 113 20 96 % -- 08/25/24 0620 (!) 184/103 36.6 C (97.8 F) Temporal 115 15 -- -- 08/24/24 2047 135/83 36.6 C (97.9 F) Temporal 100 15 96 % -- Post-Dialysis Arterial Catheter Locking Solution: Not Applicable Venous Catheter Locking Solution: Not Applicable Post-Treatment Procedures: Blood returned, Access bleeding time < 10 minutes Machine Disinfection Process: Acid/Vinegar Clean, Heat Disinfect, Exterior Machine Disinfection Rinseback Volume (mL): 300 mL Total Liters Processed (L/min): 49.1 L/min Dialyzer Clearance: Lightly streaked Hemodialysis Intake (ml): 500 ml Hemodialysis Output (ml): 1500 ml NET Removed (ml): 1000 ml Tolerated Treatment: Good Patient Response to Treatment: Stable Physician Notified: No Patient Disposition: Other (Comment) (remain in room) Charge: $ IP Hemodialysis Charge: Hemodialysis Provider Notification Provider Notification Reason for Communication: Review case Provider Name: dr barros Provider Role: Attending physician Method of Communication: Secure chat Response: No new orders Notification Date: 08/23/24 Notification Time: 1825 Reason for Communication: Review case Provider Role: Attending physician Method of Communication: Secure chat Response: No new orders Notification Time: 1825 Handoff complete and report given to Primary RN at 2009. Primary RN (First Initial, Last Name, Title): Hayde Coe RN Education Person Educated: Patient Knowledge Base: Substantial Barriers to Learning?: None Preferred method of Learning: Oral Topic(s): Access Care, Signs and Symptoms of Infection, and Procedural Teaching Tools: Explanation Response to Education: Verbalized Understanding [1] No Known Allergies [2] Patient Active Problem List Diagnosis History of myocardial infarction [3] [facility] 08-25-2024 Consult note Associated Order(s): IP CONSULT TO HEPAT OBILIARY SURGERY / SURGICAL ONCOLOGY Department of Surgery Surgical Service - 3 Resident Consult Note 08/24/2024 CHIEF COMPLAINT: No chief complaint on file. Reason for Consult: liver mass HISTORY OF PRESENT ILLNESS: Farrah Gonzales is a 44 y.o. male with a history of T1DM, ESRD on HD via TDC, HTN, HI s/p stent March 2024 on ASA who presented 08/24/24 from [place] with concern for sepsis. Fevers, hypotension, tachycardia. MSSA bacteremia presumed due to TDC. He states that he had an MRI at [place] which showed a hemangioma. He denies abdominal pain. CT CAP to rule out other sources incidentally found 7.7 cm heterogenous right liver lesion. AF, HDS. Tachycardia improved. WBC 10, Hgb 9.6, platelets 153, Cr 5.47, bilirubin normal, ALT/AST 81/78 Medical History[1] Surgical History[2] Medications Prior to Admission: @[email or web address]@ Allergies: Patient has no known allergies. Social History[3] Family History[4] REVIEW OF SYSTEMS: Review of Systems Constitutional: Negative for chills and diaphoresis. HENT: Negative for ear discharge. Eyes: Negative for pain and redness. Respiratory: Negative for shortness of breath and stridor. Gastrointestinal: Negative for abdominal pain and constipation. Musculoskeletal: Negative for myalgias and neck pain. Neurological: Negative for syncope and speech difficulty. Psychiatric/Behavioral: Negative for agitation and behavioral problems. PHYSICAL EXAM: Vitals: 08/24/24 1435 BP: 144/91 Pulse: 99 Resp: 20 Temp: 36.2 C (97.1 F) SpO2: 99% I/O last 3 completed shifts: In: 9.8 (23.4 mL/kg) [P.O.:620; I.V.:1449.8 (16.4 mL/kg)] Out: 2360 (26.7 mL/kg) [Urine:400 (0.1 mL/kg/hr); Emesis/NG output:460] Weight: 88.5 kg Physical Exam Constitutional: General: He is not in acute distress. Appearance: Normal appearance. HENT: Head: Normocephalic and atraumatic. Right Ear: External ear normal. Left Ear: External ear normal. Nose: Nose normal. No congestion. Mouth/Throat: Mouth: Mucous membranes are moist. Pharynx: Oropharynx is clear. Eyes: Extraocular Movements: Extraocular movements intact. Pupils: Pupils are equal, round, and reactive to light. Cardiovascular: Rate and Rhythm: Normal rate. Pulses: Normal pulses. Pulmonary: Effort: Pulmonary effort is normal. No respiratory distress. Abdominal: General: Abdomen is flat. There is no distension. Palpations: Abdomen is soft. Tenderness: There is no abdominal tenderness. Musculoskeletal: General: No deformity. Normal range of motion. Cervical back: Normal range of motion. No rigidity. Skin: General: Skin is warm. Coloration: Skin is not jaundiced. Neurological: General: No focal deficit present. Mental Status: He is alert. Cranial Nerves: No cranial nerve deficit. Psychiatric: Mood and Affect: Mood normal. Behavior: Behavior normal. DATA: CBC: Lab Results Component Value Date WBC 10.7 08/24/2024 RBC 3.15 (L) 08/24/2024 HGB 9.6 (L) 08/24/2024 HCT 28.3 (L) 08/24/2024 MCV 89.8 08/24/2024 MCH 30.5 08/24/2024 MCHC 33.9 08/24/2024 RDW 13.0 08/24/2024 PLT 153 08/24/2024 MPV 9.8 08/24/2024 BMP: Lab Results Component Value Date NA 135 (L) 08/24/2024 K 4.0 08/24/2024 CL 101 08/24/2024 CO2 19 (L) 08/24/2024 BUN 27 (H) 08/24/2024 CREATININE 5.47 (H) 08/24/2024 CALCIUM 8.8 08/24/2024 GLUCOSE 140 (H) 08/24/2024 Hepatic Function Panel: Lab Results Component Value Date ALKPHOS 80 08/24/2024 ALT 37 08/24/2024 AST 81 (H) 08/24/2024 PROT 6.2 (L) 08/24/2024 BILITOT 0.5 08/24/2024 PT/INR: No results found for: PROTIME, INR Troponin: No results found for: TROPONINI LIPASE: Lab Results Component Value Date LIPASE 78 (H) 08/24/2024 ASSESSMENT AND PLAN: This is a 44 y.o. male with 7.7 cm right liver mass - requested MRI from [place] which reportedly shows liver hemangioma. Asymptomatic. No surgical intervention - hepatitis panel negative in 2023 - other management per primary - discussed with Dr. Amie Russo D.O. General Surgery Resident Pager: [phone] [1] Past Medical History: Diagnosis Date End stage renal failure on dialysis (HCC) Hypertension Type 1 diabetes mellitus (HCC) [2] History reviewed. No pertinent surgical history. [3] Social History Socioeconomic History Marital status: Tobacco Use Smoking status: Never Smokeless tobacco: Never Substance and Sexual Activity Alcohol use: Never Drug use: Never Sexual activity: Defer Social Drivers of Health Financial Resource Strain: Low Risk (07/02/2022) Received from [facility] Overall Financial Resource Strain (CARDIA) Difficulty of Paying Living Expenses: Not hard at all Food Insecurity: No Food Insecurity (07/02/2022) Received from [facility] Hunger Vital Sign Worried About Running Out of Food in the Last Year: Never true Ran Out of Food in the Last Year: Never true Transportation Needs: No Transportation Needs (07/02/2022) Received from [facility] PRAPARE - Transportation Lack of Transportation (Medical): No Lack of Transportation (Non-Medical): No Physical Activity: Inactive (07/02/2022) Received from [facility] Exercise Vital Sign Days of Exercise per Week: 0 days Minutes of Exercise per Session: 0 min Stress: No Stress Concern Present (07/02/2022) Received from [facility] [place] [facility] [employer] - Occupational Stress Questionnaire Feeling of Stress : Not at all Social Connections: Socially Integrated (07/02/2022) Received from [facility] Social Connection and Isolation Panel [NHANES] Frequency of Communication with Friends and Family: More than three times a week Frequency of Social Gatherings with Friends and Family: More than three times a week Attends Gnosticism Services: More than 4 times per year Active Member of Clubs or Organizations: Yes Attends Club or Organization Meetings: More than 4 times per year Marital Status: Living with partner Housing Stability: Low Risk (07/02/2022) Received from [facility] Housing Stability Vital Sign Unable to Pay for Housing in the Last Year: No Number of Places Lived in the Last Year: 1 Unstable Housing in the Last Year: No [4] No family history on file. Cosigned by Lio Holloway MD at 08/26/2024 5:35 PM EDT Associated attestation - Lio Holloway MD - 08/26/2024 5:35 PM EDT I saw and evaluated the patient. I agree with the findings and plan of care as documented in the resident's note. The patient was seen on 08/26/2024 Physical Exam: Vital Signs: BP (!) 162/88 (BP Location: Right arm, Patient Position: Sitting) Pulse 92 Temp 36.6 C (97.9 F) (Temporal) Resp 20 Ht 5' 11 (1.803 m) Wt 197 lb 12.8 oz (89.7 kg) SpO2 96% BMI 27.59 kg/m Gen: alert, oriented, no acute distress Eyes: normal conjunctivae; no jaundice; PERRL ENMT: normal external ears and nose; grossly normal hearing Neck: supple; no tracheal deviation; no gross thyromegaly Resp: normal respiratory effort; no chest wall tenderness CV: regular rate/rhythm; no LE edema Abd: soft, non-tender, non-distended; no hernias MSI: no clubbing or cyanosis; extremity strength and ROM grossly normal Psych: A&Ox3; appropriate judgement [facility] Work Phone: 08-25-2024 Consult note Associated Order(s): IP CONSULT TO HEPAT OBILIARY SURGERY / SURGICAL ONCOLOGY Department of Surgery Surgical Service - 3 Resident Consult Note 08/24/2024 CHIEF COMPLAINT: No chief complaint on file. Reason for Consult: liver mass HISTORY OF PRESENT ILLNESS: Farrah Gonzales is a 44 y.o. male with a history of T1DM, ESRD on HD via TDC, HTN, HI s/p stent March 2024 on ASA who presented 08/24/24 from [place] with concern for sepsis. Fevers, hypotension, tachycardia. MSSA bacteremia presumed due to TDC. He states that he had an MRI at [place] which showed a hemangioma. He denies abdominal pain. CT CAP to rule out other sources incidentally found 7.7 cm heterogenous right liver lesion. AF, HDS. Tachycardia improved. WBC 10, Hgb 9.6, platelets 153, Cr 5.47, bilirubin normal, ALT/AST 81/78 Medical History[1] Surgical History[2] Medications Prior to Admission: @[email or web address]@ Allergies: Patient has no known allergies. Social History[3] Family History[4] REVIEW OF SYSTEMS: Review of Systems Constitutional: Negative for chills and diaphoresis. HENT: Negative for ear discharge. Eyes: Negative for pain and redness. Respiratory: Negative for shortness of breath and stridor. Gastrointestinal: Negative for abdominal pain and constipation. Musculoskeletal: Negative for myalgias and neck pain. Neurological: Negative for syncope and speech difficulty. Psychiatric/Behavioral: Negative for agitation and behavioral problems. PHYSICAL EXAM: Vitals: 08/24/24 1435 BP: 144/91 Pulse: 99 Resp: 20 Temp: 36.2 C (97.1 F) SpO2: 99% I/O last 3 completed shifts: In: 2069.8 (23.4 mL/kg) [P.O.:620; I.V.:1449.8 (16.4 mL/kg)] Out: 2360 (26.7 mL/kg) [Urine:400 (0.1 mL/kg/hr); Emesis/NG output:460] Weight: 88.5 kg Physical Exam Constitutional: General: He is not in acute distress. Appearance: Normal appearance. HENT: Head: Normocephalic and atraumatic. Right Ear: External ear normal. Left Ear: External ear normal. Nose: Nose normal. No congestion. Mouth/Throat: Mouth: Mucous membranes are moist. Pharynx: Oropharynx is clear. Eyes: Extraocular Movements: Extraocular movements intact. Pupils: Pupils are equal, round, and reactive to light. Cardiovascular: Rate and Rhythm: Normal rate. Pulses: Normal pulses. Pulmonary: Effort: Pulmonary effort is normal. No respiratory distress. Abdominal: General: Abdomen is flat. There is no distension. Palpations: Abdomen is soft. Tenderness: There is no abdominal tenderness. Musculoskeletal: General: No deformity. Normal range of motion. Cervical back: Normal range of motion. No rigidity. Skin: General: Skin is warm. Coloration: Skin is not jaundiced. Neurological: General: No focal deficit present. Mental Status: He is alert. Cranial Nerves: No cranial nerve deficit. Psychiatric: Mood and Affect: Mood normal. Behavior: Behavior normal. DATA: CBC: Lab Results Component Value Date WBC 10.7 08/24/2024 RBC 3.15 (L) 08/24/2024 HGB 9.6 (L) 08/24/2024 HCT 28.3 (L) 08/24/2024 MCV 89.8 08/24/2024 MCH 30.5 08/24/2024 MCHC 33.9 08/24/2024 RDW 13.0 08/24/2024 PLT 153 08/24/2024 MPV 9.8 08/24/2024 BMP: Lab Results Component Value Date NA 135 (L) 08/24/2024 K 4.0 08/24/2024 CL 101 08/24/2024 CO2 19 (L) 08/24/2024 BUN 27 (H) 08/24/2024 CREATININE 5.47 (H) 08/24/2024 CALCIUM 8.8 08/24/2024 GLUCOSE 140 (H) 08/24/2024 Hepatic Function Panel: Lab Results Component Value Date ALKPHOS 80 08/24/2024 ALT 37 08/24/2024 AST 81 (H) 08/24/2024 PROT 6.2 (L) 08/24/2024 BILITOT 0.5 08/24/2024 PT/INR: No results found for: PROTIME, INR Troponin: No results found for: TROPONINI LIPASE: Lab Results Component Value Date LIPASE 78 (H) 08/24/2024 ASSESSMENT AND PLAN: This is a 44 y.o. male with 7.7 cm right liver mass - requested MRI from [place] which reportedly shows liver hemangioma. Asymptomatic. No surgical intervention - hepatitis panel negative in 2023 - other management per primary - discussed with Dr. Amie Russo D.O. General Surgery Resident Pager: [phone] [1] Past Medical History: Diagnosis Date End stage renal failure on dialysis (HCC) Hypertension Type 1 diabetes mellitus (HCC) [2] History reviewed. No pertinent surgical history. [3] Social History Socioeconomic History Marital status: Tobacco Use Smoking status: Never Smokeless tobacco: Never Substance and Sexual Activity Alcohol use: Never Drug use: Never Sexual activity: Defer Social Drivers of Health Financial Resource Strain: Low Risk (07/02/2022) Received from [facility] Overall Financial Resource Strain (CARDIA) Difficulty of Paying Living Expenses: Not hard at all Food Insecurity: No Food Insecurity (07/02/2022) Received from [facility] Hunger Vital Sign Worried About Running Out of Food in the Last Year: Never true Ran Out of Food in the Last Year: Never true Transportation Needs: No Transportation Needs (07/02/2022) Received from [facility] PRAPARE - Transportation Lack of Transportation (Medical): No Lack of Transportation (Non-Medical): No Physical Activity: Inactive (07/02/2022) Received from [facility] Exercise Vital Sign Days of Exercise per Week: 0 days Minutes of Exercise per Session: 0 min Stress: No Stress Concern Present (07/02/2022) Received from [facility] [place] [employer] - Occupational Stress Questionnaire Feeling of Stress : Not at all Social Connections: Socially Integrated (07/02/2022) Received from [facility] Social Connection and Isolation Panel [NHANES] Frequency of Communication with Friends and Family: More than three times a week Frequency of Social Gatherings with Friends and Family: More than three times a week Attends Gnosticism Services: More than 4 times per year Active Member of Clubs or Organizations: Yes Attends Club or Organization Meetings: More than 4 times per year Marital Status: Living with partner Housing Stability: Low Risk (07/02/2022) Received from [facility] Housing Stability Vital Sign Unable to Pay for Housing in the Last Year: No Number of Places Lived in the Last Year: 1 Unstable Housing in the Last Year: No [4] No family history on file. Cosigned by Lio Holloway MD at 08/26/2024 5:35 PM EDT Associated attestation - Lio Holloway MD - 08/26/2024 5:35 PM EDT I saw and evaluated the patient. I agree with the findings and plan of care as documented in the resident's note. The patient was seen on 08/26/2024 Physical Exam: Vital Signs: BP (!) 162/88 (BP Location: Right arm, Patient Position: Sitting) Pulse 92 Temp 36.6 C (97.9 F) (Temporal) Resp 20 Ht 5' 11 (1.803 m) Wt 197 lb 12.8 oz (89.7 kg) SpO2 96% BMI 27.59 kg/m Gen: alert, oriented, no acute distress Eyes: normal conjunctivae; no jaundice; PERRL ENMT: normal external ears and nose; grossly normal hearing Neck: supple; no tracheal deviation; no gross thyromegaly Resp: normal respiratory effort; no chest wall tenderness CV: regular rate/rhythm; no LE edema Abd: soft, non-tender, non-distended; no hernias MSI: no clubbing or cyanosis; extremity strength and ROM grossly normal Psych: A&Ox3; appropriate judgement Associated Order(s): IP CONSULT TO GI Department of Internal Medicine Gastroenterology Attending Consult Note Reason for Consult: The patient was seen in consultation at the request of Dr. Hayde Barros re: 7.7 cm new liver mass on CT imaging. CHIEF COMPLAINT: Fever body aches History Obtained From: Patient and EMR HISTORY OF PRESENT ILLNESS: The patient is a 44 y.o. male with significant past medical history of T1DM, ESRD, and HTN who presents as a transfer from [facility] with sepsis (T 103, BP 93/78. HR 135. GI asked to evaluate for liver mass on CT. Prior EGD 2011. Denies prior colonoscopy and abdominal surgery. Denies current use of OAC, NSAIDS, tobacco, ETOH and recreational drugs. Allergies: Patient has no known allergies. Current Medications: Current Medications[1] Past Medical History: Active Ambulatory Problems Diagnosis Date Noted No Active Ambulatory Problems Resolved Ambulatory Problems Diagnosis Date Noted No Resolved Ambulatory Problems Past Medical History: Diagnosis Date End stage renal failure on dialysis (HCC) Hypertension Type 1 diabetes mellitus (HCC) Past Surgical History: Social History Socioeconomic History Marital status: Spouse name: Not on file Number of children: Not on file Years of education: Not on file Highest education level: Not on file Occupational History Not on file Tobacco Use Smoking status: Never Smokeless tobacco: Never Substance and Sexual Activity Alcohol use: Never Drug use: Never Sexual activity: Defer Other Topics Concern Not on file Social History Narrative Not on file Social Drivers of Health Financial Resource Strain: Low Risk (07/02/2022) Received from [facility] Overall Financial Resource Strain (CARDIA) Difficulty of Paying Living Expenses: Not hard at all Food Insecurity: No Food Insecurity (07/02/2022) Received from [facility] Hunger Vital Sign Worried About Running Out of Food in the Last Year: Never true Ran Out of Food in the Last Year: Never true Transportation Needs: No Transportation Needs (07/02/2022) Received from [facility] PRAPARE - Transportation Lack of Transportation (Medical): No Lack of Transportation (Non-Medical): No Physical Activity: Inactive (07/02/2022) Received from [facility] Exercise Vital Sign Days of Exercise per Week: 0 days Minutes of Exercise per Session: 0 min Stress: No Stress Concern Present (07/02/2022) Received from [facility] [place] [employer] [employer] - Occupational Stress Questionnaire Feeling of Stress : Not at all Social Connections: Socially Integrated (07/02/2022) Received from [facility] Social Connection and Isolation Panel [NHANES] Frequency of Communication with Friends and Family: More than three times a week Frequency of Social Gatherings with Friends and Family: More than three times a week Attends Gnosticism Services: More than 4 times per year Active Member of Clubs or Organizations: Yes Attends Club or Organization Meetings: More than 4 times per year Marital Status: Living with partner Intimate Partner Violence: Not on file Housing Stability: Low Risk (07/02/2022) Received from [facility] Housing Stability Vital Sign Unable to Pay for Housing in the Last Year: No Number of Places Lived in the Last Year: 1 Unstable Housing in the Last Year: No Family History: Family History[2] No family history colon or stomach cancer. Social History: TOBACCO: reports that he has never smoked. He has never used smokeless tobacco. ETOH: reports no history of alcohol use. DRUGS: reports no history of drug use. 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 Normal appetite and weight. No DUTTA, visual disturbance, eye pain, jaundice, sore throat or mouth ulcers. No skin rash or itching. No CP, SOB, ERICKSON, cough or wheeze. No urinary frequency, urgency, hematuria, or dysuria. No myalgia, arthralgia, or joint swelling. No weakness, numbness, or confusion. GI per HPI. No polyuria, polydipsia, heat or cold intolerance. PHYSICAL EXAM: VS: BP (!) 168/96 Pulse 115 Temp (!) 35.9 C (96.7 F) (Temporal) Resp 20 Ht 5' 11 (1.803 m) Wt 195 lb (88.5 kg) SpO2 100% BMI 27.20 kg/m Body mass index is 27.2 kg/m . Constitutional: No acute distress. Well-nourished. Well hydrated, resting in bed Head/Eyes: Pupils are equal and round; Conjunctiva are not injected; Sclera are non-icteric. ENT: Ears/nose without external abnormalities. Oral mucosa is pink and moist. Neck: No JVD. No carotid bruits; No thyromegaly. Respiratory: Clear to auscultation bilaterally without any added sounds. Effort is normal Heart: Regular, Normal S1 and S2. No murmur; No added sounds. Abdomen: Normal BS, soft, non-tender, non-distended; no hepatomegaly. Extremities/Skin: No LE edema; Skin warm to touch and well perfused. Musculoskeletal: Head - normocephalic. Neck - supple Psychiatric: AAO x 3, answers appropriately, normal mood, normal affect. DATA: Recent blood work and relevant radiologic and endoscopic studies were reviewed and discussed with the patient. CBC: Recent Labs 08/23/24 1300 08/24/24 0412 WBC 20.3* 10.7 RBC 3.34* 3.15* HGB 10.4* 9.6* HCT 29.5* 28.3* MCV 88.3 89.8 MCH 31.1 30.5 MCHC 35.3 33.9 RDW 13.0 13.0 PLT 177 153 MPV 9.7 9.8 CMP: Recent Labs 08/23/24 1300 08/24/24 0412 NA 134* 135* K 4.4 4.0 CL 99 101 CO2 20* 19* BUN 59* 27* CREATININE 9.57* 5.47* GLUCOSE 224* 140* CALCIUM 8.8 8.8 PROT 6.4 6.2* BILITOT 0.5 0.5 ALKPHOS 85 80 AST 22 81* ALT [address] CAP w 08/23/2024: HISTORY: Nausea vomiting sepsis of unknown origin After intravenous contrast, sections performed through the chest abdomen pelvis. Dose reduction was employed with automated exposure control. No comparison CT studies. FINDINGS: 1. CT CHEST --- There are no definite infiltrates masses or pleural effusions Right jugular tunneled dialysis catheter, left coronary artery stent with calcified plaquing. 2. CT ABDOMEN--- There is a heterogeneous large 7.7 cm MASS right lobe liver. Aortoiliac calcified plaquing with probable punctate areas of left renal artery calcification. Question of punctate gallbladder calculi or hyperdense small areas of sludge. 3. CT PELVIS--- There is a normal appendix with no free fluid or free air. Moderate amount of stool in colon with few small scattered colonic diverticuli. Endoscopic Review [facility] Gastrointestinal Endoscopy Patient Name: Laurie Gonzales Procedure Date: 10/09/2011 7:00 AM Date of : 1980 Admit Type: Ambulatory Age: 31 Gender: Male Note Status: Finalized Procedure: Upper GI endoscopy Indications: Heartburn. Nausea with vomiting. Recently admitted to hospital in [facility] in June with severe DKA. Had N/V with pt reported hemetemsis - not seen during hospitalization. Records reviewed. Please see recent office note dated 10/04/11 for clinical details. Providers: Keith Ndiaye MD Referring Physician: Dr Melvin Mosley Medicines: Meperidine 65 mg IV, Midazolam 3.5 mg IV, Benzocaine spray Complications: No immediate complications. Requesting Provider: Procedure: Pre-Anesthesia Assessment: - Respiratory Examination: clear to auscultation. - CV Examination: RRR, no murmurs, no S3 or S4. - Abdominal Examination: bowel sounds present, abdomen soft and non-tender, no masses or organomegaly noted. After obtaining informed consent, the endoscope was passed under direct vision. Throughout the procedure, the patient's blood pressure, pulse, and oxygen saturations were monitored continuously. The Endoscope was introduced through the mouth, and advanced to the third part of duodenum. The upper GI endoscopy was accomplished without difficulty. The patient tolerated the procedure well. Findings: Diffuse mild erythema with linear erosions was found in the lower third of the esophagus. The Z-line was variable. No bxs were necessary.The exam of the esophagus was otherwise normal. There is no endoscopic evidence of Michelle's esophagus, nodules or stricture in the lower third of the esophagus. A medium amount of food (residue) was found on the greater curvature of the stomach, clearly representing gastroparesis.Diffuse mildly erythematous mucosa was found in the gastric antrum. The exam of the stomach was otherwise normal. There is no evidence of outlet obstruction.Biopsies were taken with a cold forceps for Helicobacter pylori testing. Normal mucosa was found in the entire duodenum. Impression: - Erythema and erosions in the lower third of the esophagus. - Z-line variable. - A medium amount of food remains in the stomach representing gastroparesis. - Gastric mucosal abnormality in the antrum characterized by erythema. - Biopsies were taken with a cold forceps for Helicobacter pylori testing. Recommendation: - Follow-up on the results of the biopsy specimens in 1 day. - Elevation of the head of the bed 4 inches and avoidance of late-night snacks. - Continue present medications. Protonix (am) and ranitidine(pm). He should avoud NSAIDs and ASA if possible. The treament of gastroparesis is difficult at best. Would try to avoid Reglan. Small frequent meals, no late night snacks, and tight control of his blood sugar are to be recommended. Prokinetic agents such as erythromicin have limited and varying success. IMPRESSION/RECOMMENDATIONS: 7.[address] Scan Sepsis Hx T1DM Hx ESRD on HD M,W,F Plan: Patient transferred to [facility] from [place] ED for sepsis and need for HD. CT scan notable for liver mass not seen on CT scan 2023. Patient reports being told that he has a hemangioma recently, no imaging or report of this in paper chart. No role for GI for liver mass. - Consult HPB surgery. - Continue to trend LFTs daily. - Continue medical management and supportive care per primary team. The GI/Liver consult service will sign off. Please call if there are any questions, concerns or change of patient's GI condition. Thanks. [1] Current Facility-Administered Medications: acetaminophen (Tylenol) tablet 1,000 mg, 1,000 mg, Oral, TID, Brayan Barros DO, 1,000 mg at 08/24/24 0929 amLODIPine (Norvasc) tablet 10 mg, 10 mg, Oral, Daily, Kwesi Munson MD ceFAZolin (Ancef) 1,000 mg in sodium chloride 0.9 % 50 mL IVPB, 1,000 mg, IntraVENous, q24h, Kwesi Munson MD dextrose 5 % infusion, 100 mL/hr, IntraVENous, PRN, Brayan Barros DO dextrose 50 % solution 12.5 g, 12.5 g, IntraVENous, PRN, Brayan Barros DO glucagon (human recombinant) injection 1 mg, 1 mg, IntraMUSCular, PRN, Brayan Barros DO glucose oral gel 15 g, 15 g, Oral, PRN, Brayan Barros DO heparin injection 1,600 Units, 1,600 Units, IntraCATHeter, PRN, Osmel Andrade MD, 1,600 Units at 08/23/24 2333 heparin injection 1,600 Units, 1,600 Units, IntraCATHeter, PRN, Osmel Andrade MD, 1,600 Units at 08/23/24 2333 heparin injection 5,000 Units, 5,000 Units, SubCUTAneous, 3 times per day, Brayan Barros DO, 5,000 Units at 08/24/24 0540 Insulin Pump - (Patient Supplied), , SubCUTAneous, Continuous, Akbar Leo-Angela, New Bag at 08/23/24 1358 Lidocaine 4 % patch 1 patch, 1 patch, TransDERmal, Daily PRN, Brayan Luz Marina, DO, 1 patch at 08/23/241818 [Held by provider] metoprolol succinate XL (Toprol-XL) 24 hr tablet 25 mg, 25 mg, Oral, Daily, Brayan Barros, DO ondansetron ODT (Zofran-ODT) disintegrating tablet 4 mg, 4 mg, Oral, q8h PRN OR ondansetron (Zofran) injection 4 mg, 4 mg, IntraVENous, q6h PRN, Brayan Barros, DO, 4 mg at 08/24/24 0540 pantoprazole (ProtoNix) EC tablet 40 mg, 40 mg, Oral, qAM AC, Brayan Barros, DO, 40 mg at 08/24/24 0540 polyethylene glycol (PEG) 3350 (Miralax) packet 17 g, 17 g, Oral, Daily PRN, Brayan Barros, DO prochlorperazine (Compazine) tablet 10 mg, 10 mg, Oral, q6h PRN OR prochlorperazine (Compazine) injection 10 mg, 10 mg, IntraVENous, q6h PRN, 10 mg at 08/24/24 0824 OR prochlorperazine (Compazine) suppository 25 mg, 25 mg, Rectal, q12h PRN, Palvir MD Arpit rosuvastatin (Crestor) tablet 20 mg, 20 mg, Oral, Nightly, Brayan Barros, DO, 20 mg at 08/23/242007 [2] No family history on file. Cosigned by Juan Licona MD at 08/25/2024 3:06 PM EDT Associated Order(s): IP CONSULT TO INFECTIOUS DISEASES Images from the original note were not included. [facility] - Infectious Diseases Advanced Practice Provider Consult Note Reason for Consult: MSSA bacteremia History of Present Illness: 44 yo male with PMHx significant for T1DM, ESRD via TDC, and HTN who presents 08/23 from [place] ED with fever, hypotension, tachycardia concerning for sepsis. Patient reports starting Friday he developed intractable nausea and vomiting. He notes he had some diarrhea last night. Denies fever, chills, CP, SOB, cough, congestion, joint or back pain, and any urinary issues (He notes still produces own urine). Denies any open wounds, hardware presence, or recent dental procedures/cleanings. Notes his TDC has been in placed since December, no recent exchanges. Notes the area is sore and pruritic, but states it has felt this way since December. Denies any redness or swelling around catheter or any drainage. No other new exacerbating or alleviating factors. On presentation, patient afebrile, normotensive, on room air. Labs- WBC 20.3-> 10.7, lactic acid 1.5, procal 5.94, BNP 42641. CXR negative. CT chest/abd/pelvis performed and without infiltrates, masses, pleural effusions; shows R TDC in place and a large heterogenous 7.7cm R lobe liver mass. 08/23 Blood Cx collected 05/02 GPC (MSSA detected). Resp PCR panel and Strep/Legionella Ag negative. Patient is currently on Cefazolin. Past Medical History: Medical History[1] Past Surgical History: Surgical History[2] Current Medications: Current Medications[3] Allergies: Allergies[4] Social History: Social History Socioeconomic History Marital status: Spouse name: Not on file Number of children: Not on file Years of education: Not on file Highest education level: Not on file Occupational History Not on file Tobacco Use Smoking status: Never Smokeless tobacco: Never Substance and Sexual Activity Alcohol use: Never Drug use: Never Sexual activity: Defer Other Topics Concern Not on file Social History Narrative Not on file Social Drivers of Health Financial Resource Strain: Low Risk (07/02/2022) Received from [facility] Overall Financial Resource Strain (CARDIA) Difficulty of Paying Living Expenses: Not hard at all Food Insecurity: No Food Insecurity (07/02/2022) Received from [facility] Hunger Vital Sign Worried About Running Out of Food in the Last Year: Never true Ran Out of Food in the Last Year: Never true Transportation Needs: No Transportation Needs (07/02/2022) Received from [facility] PRAPARE - Transportation Lack of Transportation (Medical): No Lack of Transportation (Non-Medical): No Physical Activity: Inactive (07/02/2022) Received from [facility] Exercise Vital Sign Days of Exercise per Week: 0 days Minutes of Exercise per Session: 0 min Stress: No Stress Concern Present (07/02/2022) Received from [facility] [place] [facility] - Occupational Stress Questionnaire Feeling of Stress : Not at all Social Connections: Socially Integrated (07/02/2022) Received from [facility] Social Connection and Isolation Panel [NHANES] Frequency of Communication with Friends and Family: More than three times a week Frequency of Social Gatherings with Friends and Family: More than three times a week Attends Gnosticism Services: More than 4 times per year Active Member of Clubs or Organizations: Yes Attends Club or Organization Meetings: More than 4 times per year Marital Status: Living with partner Intimate Partner Violence: Not on file Housing Stability: Low Risk (07/02/2022) Received from [facility] Housing Stability Vital Sign Unable to Pay for Housing in the Last Year: No Number of Places Lived in the Last Year: 1 Unstable Housing in the Last Year: No Family History: Family History[5] Review of Systems: Review of Systems Constitutional: Negative for chills, fatigue and fever. HENT: Negative for congestion, ear pain, postnasal drip, rhinorrhea, sinus pressure, sinus pain and sore throat. Eyes: Negative for pain, discharge and itching. Respiratory: Negative for cough, chest tightness and shortness of breath. Cardiovascular: Negative for chest pain, palpitations and leg swelling. Gastrointestinal: Positive for nausea and vomiting. Negative for abdominal distention, abdominal pain, constipation and diarrhea. Genitourinary: Negative for dysuria, flank pain, frequency and urgency. Musculoskeletal: Negative for arthralgias and myalgias. Skin: Negative for color change, rash and wound. Neurological: Negative for dizziness, weakness, light-headedness and headaches. Vitals: Patient Vitals for the past 24 hrs: BP Temp Temp src Pulse Resp SpO2 Height Weight 08/24/24 0825 (!) 168/96 (!) 35.9 C (96.7 F) Temporal 115 20 100 % -- -- 08/24/24 0418 144/86 36.4 C (97.6 F) Temporal (!) 123 18 98 % -- -- 08/23/24 2358 142/83 37.6 C (99.7 F) Temporal (!) 127 22 99 % -- -- 08/23/242324 158/74 -- -- (!) 129 -- -- -- -- 08/23/24 230 (!) 163/93 -- -- (!) 136 -- -- -- -- 08/23/242247 143/76 -- -- (!) 125 -- -- -- -- 08/23/242244 129/74 -- -- (!) 127 -- -- -- -- 08/23/242229 159/75 -- -- 113 -- -- -- -- 08/23/242214 151/81 -- -- 117 -- -- -- -- 08/23/242199 (!) 175/87 -- -- 120 -- -- -- -- 08/23/242144 (!) 165/90 -- -- 117 -- -- -- -- 08/23/242129 (!) 186/97 -- -- 114 -- -- -- -- 08/23/242114 (!) 179/101 -- -- 112 -- -- -- -- 08/23/242099 (!) 180/94 -- -- 109 -- -- -- -- 08/23/242044 (!) 178/99 -- -- 107 -- -- -- -- 08/23/242029 (!) 174/83 -- -- 110 -- -- -- -- 08/23/242024 (!) 172/104 -- -- 112 -- -- -- -- 08/23/241944 (!) 163/87 37.1 C (98.7 F) Temporal 107 17 99 % -- -- 08/23/24 1624 149/87 37 C (98.6 F) Temporal 102 16 97 % -- -- 08/23/24 1031 156/82 36.4 C (97.5 F) Temporal 108 20 100 % 1.803 m (5' 11) 88.5 kg (195 lb) Physical Exam: Physical Exam Vitals and nursing note reviewed. Constitutional: General: He is not in acute distress. Appearance: Normal appearance. He is normal weight. He is not ill-appearing. Comments: NAD laying in bed. Interactive, cooperative, conversant. Flat affect HENT: Head: Normocephalic and atraumatic. Right Ear: External ear normal. Left Ear: External ear normal. Nose: Nose normal. Mouth/Throat: Mouth: Mucous membranes are moist. Pharynx: Oropharynx is clear. Eyes: Extraocular Movements: Extraocular movements intact. Conjunctiva/sclera: Conjunctivae normal. Pupils: Pupils are equal, round, and reactive to light. Cardiovascular: Rate and Rhythm: Normal rate and regular rhythm. Pulses: Normal pulses. Heart sounds: Normal heart sounds. Pulmonary: Effort: Pulmonary effort is normal. Breath sounds: Normal breath sounds. No wheezing, rhonchi or rales. Comments: Breathing unlabored on room air. CTAB Abdominal: General: Abdomen is flat. Bowel sounds are normal. There is no distension. Palpations: Abdomen is soft. Tenderness: There is no abdominal tenderness. There is no guarding. Musculoskeletal: Right lower leg: No edema. Left lower leg: No edema. Skin: General: Skin is warm and dry. Comments: R chest TDC insertion site slightly pink. No tenderness, fluctuance, or drainage L AVF Neurological: General: No focal deficit present. Mental Status: He is alert and oriented to person, place, and time. Psychiatric: Mood and Affect: Mood normal. Behavior: Behavior normal. Labs: Recent Labs 08/23/24 1300 08/24/24 0412 NA 134* 135* K 4.4 4.0 CL 99 101 CO2 20* 19* BUN 59* 27* CREATININE 9.57* 5.47* GLUCOSE 224* 140* CALCIUM 8.8 8.8 PROT 6.4 6.2* BILITOT 0.5 0.5 ALKPHOS 85 80 AST 22 81* ALT 10 37 PROCAL 5.94* -- Recent Labs 08/23/24 1300 08/24/24 0412 WBC 20.3* 10.7 HGB 10.4* 9.6* HCT 29.5* 28.3* PLT 177 153 LYMPHOPCT 4* 3.7* MONOPCT 3* 6.9 BASOPCT -- 0.4 NEUTROABS -- 9.4* Micro: No results for input(s): COVID19 in the last 72 hours. 08/23 Blood Cx: 2/2 GPC (MSSA) 08/23 Resp PCR panel: neg 08/24 Strep/Legionella Ag: neg 08/24 Sputum Cx: cancelled dt poor quality Lines: R chest TDC L AVF Radiography/Echo/Other: 08/23 CXR No acute cardiopulmonary disease. 08/23 CT chest/abd/pelvis 1. CT CHEST --- There are no definite infiltrates masses or pleural effusions Right jugular tunneled dialysis catheter, left coronary artery stent with calcified plaquing. 2. CT ABDOMEN--- There is a heterogeneous large 7.7 cm MASS right lobe liver. Aortoiliac calcified plaquing with probable punctate areas of left renal artery calcification. Question of punctate gallbladder calculi or hyperdense small areas of sludge. 3. CT PELVIS--- There is a normal appendix with no free fluid or free air. Moderate amount of stool in colon with few small scattered colonic diverticuli. Antimicrobials,Start/End Dates: Cefazolin: 08/24- present Pip-Tazo: 08/23-08/24 Vanc: 08/23 Impression: MSSA bacteremia ESRD Liver mass on CT scan T1DM Plan: Patient with MSSA bacteremia- suspect 2/2 TDC as no other known source at this time. Recommend removing TDC for line holiday. Primary team and Nephro aware. If HD needed in interim, okay to place temporary line as needed. Repeat Blood Cx ordered for tomorrow, follow for clearance. Repeat Blood Cx will need to be negative x72 hours prior to replacing tunneled line. Obtain TTE for evaluation. Continue renally-dosed Cefazolin 1g IV q24h for now. Monitor infectious parameters. ID will continue to follow. Case and plan discussed with Dr. Sue Total time 75 minutes on this day of encounter includes counseling, coordinating plan of care, record and documentation review before and after visit including documentation and time not explicitly included on EMR time stamp for accounting for open encounter. Tracy GEORGE PA-C [facility] Infectious Disease [1] Past Medical History: Diagnosis Date End stage renal failure on dialysis (HCC) Hypertension Type 1 diabetes mellitus (HCC) [2] History reviewed. No pertinent surgical history. [3] Current Facility-Administered Medications Medication Dose Route Frequency Provider Last Rate Last Admin acetaminophen (Tylenol) tablet 1,000 mg 1,000 mg Oral TID Brayan Luz Marina, DO 1,000 mg at 08/24/24 0929 [Held by provider] amLODIPine (Norvasc) tablet 10 mg 10 mg Oral Daily Brayan Luz Marina, DO ceFAZolin (Ancef) 1,000 mg in sodium chloride 0.9 % 50 mL IVPB 1,000 mg IntraVENous q24h Kwesi Munson MD dextrose 5 % infusion 100 mL/hr IntraVENous PRN Brayan Luz Marina, DO dextrose 50 % solution 12.5 g 12.5 g IntraVENous PRN Brayanreema Barros, DO glucagon (human recombinant) injection 1 mg 1 mg IntraMUSCular PRN Brayan Luz Marina, DO glucose oral gel 15 g 15 g Oral PRN Brayan Barros, DO heparin injection 1,600 Units 1,600 Units IntraCATHeter PRN Osmel Q MD Lupe 1,600 Units at 08/23/24 2333 heparin injection 1,600 Units 1,600 Units IntraCATHeter PRN Osmel Q MD Lupe 1,600 Units at 08/23/24 2333 heparin injection 5,000 Units 5,000 Units SubCUTAneous 3 times per day Brayan Luz Marina, DO 5,000 Units at 08/24/24 0540 Insulin Pump - (Patient Supplied) SubCUTAneous Continuous Akbar Ahmet-Angela New Bag at 08/23/24 1358 Lidocaine 4 % patch 1 patch 1 patch TransDERmal Daily PRN Brayan Luz Marina, DO 1 patch at 08/23/24 1819 [Held by provider] metoprolol succinate XL (Toprol-XL) 24 hr tablet 25 mg 25 mg Oral Daily Brayan Luz Marina, DO ondansetron ODT (Zofran-ODT) disintegrating tablet 4 mg 4 mg Oral q8h PRN Brayan Luz Marina, DO Or ondansetron (Zofran) injection 4 mg 4 mg IntraVENous q6h PRN Brayan Luz Marina, DO 4 mg at 08/24/24 0540 pantoprazole (ProtoNix) EC tablet 40 mg 40 mg Oral qAM AC Brayanreema Barros, DO 40 mg at 08/24/24 0540 polyethylene glycol (PEG) 3350 (Miralax) packet 17 g 17 g Oral Daily PRN Brayanreema Bianchins, DO prochlorperazine (Compazine) tablet 10 mg 10 mg Oral q6h PRN Kwesi Munson MD Or prochlorperazine (Compazine) injection 10 mg 10 mg IntraVENous q6h PRN Kwesi Munson MD 10 mg at 08/24/24 0824 Or prochlorperazine (Compazine) suppository 25 mg 25 mg Rectal q12h PRN Kwesi Munson MD rosuvastatin (Crestor) tablet 20 mg 20 mg Oral Nightly Brayan Barros, DO 20 mg at 08/23/242007 [4] No Known Allergies [5] No family history on file. Cosigned by Lio Sue MD at 08/24/2024 3:43 PM EDT Associated Order(s): IP CONSULT TO NEPHROLOGY [facility] [place] [address] [place], [place] [id number] Consult Note Patient's Name: Farrah Gonzales 2:37 PM 08/23/2024 Reason for Consult: esrd ATTENDING/ADMITTING PHYSICIAN:Maria Luz Trujillo MD Assessment: 44 y.o. male with PMH of diabetes, hypertension, end-stage renal disease admitted to the hospital with sepsis. Nephrology is consulted for management of end-stage renal disease 1. End-stage renal disease on hemodialysis Friday - Last dialysis treatment on Friday 2. Volume - Patient looks euvolemic still makes urine 3. Electrolytes: - Mild hyponatremia of 134 mmol/L potassium is stable 4. Acid/base: - Serum bicarb of 20 5. MBD: - Calcium to 8.8 no phosphorus 6. Anemia: - Hemoglobin is at goal at 10.4 7. Medications: - Reviewed 8. Access: - AV fistula Plan: - Will resume his dialysis today Friday schedule - Antibiotics ongoing workup for infection per primary team Thank you for allowing me to participate in care of Farrah Gonzales. Please do not hesitate to contact me at [phone] with any concerns. Osmel Andrade MD 2:37 PM 08/23/2024 --- --- --- Chief Complaint: fever History Obtained From: patient and chart review History of Present Ilness: Farrah Gonzales is a 44 y.o. male with underlying history below who is currently being admitted to the hospital of workup for sepsis. Nephrology is consulted for management of end-stage renal disease Patient [place] [facility] [place]. His last dialysis treatment was on Friday He dialyzes via a left radial AV fistula. Patient states that he woke up on Friday feeling feverish took his temperature noted to be 103 He is currently maintained on broad-spectrum antibiotics with ongoing workup for sepsis. Patient states that he still makes urine Medical History[1] Surgical History[2] Family History[3] reports that he has never smoked. He has never used smokeless tobacco. He reports that he does not drink alcohol and does not use drugs. Allergies: Patient has no known allergies. Current Medications: Current Medications[4] Review of Systems: 10 ROS negative other than stated above Vitals: BP 156/82 (BP Location: Right arm, Patient Position: Lying) Pulse 108 Temp 36.4 C (97.5 F) (Temporal) Resp 20 Ht 1.803 m (5' 11) Wt 88.5 kg (195 lb) SpO2 100% BMI 27.20 kg/m BLOOD PRESSURE RANGE: Systolic (24hrs), Av , Min:156 , Max:156 ; Diastolic (24hrs), Av, Min:82, Max:82 Physical exam: Pleasant alert and responsive answers questions appropriately in no acute distress Normocephalic atraumatic Oromucosa slightly dry Neck is supple S1-S2 regular Breath sounds are equal bilaterally Abdomen is nontender No significant peripheral edema Left AV fistula good thrill and bruit Labs: Recent Labs 08/23/24 1300 WBC 20.3* HGB 10.4* HCT 29.5* MCV 88.3 PLT 177 Recent Labs 08/23/24 1300 NA 134* K 4.4 CL 99 CO2 20* GLUCOSE 224* BUN 59* CREATININE 9.57* Ionized Calcium: No components found for: IONCA Magnesium: No results found for: MG Phosphorus: No results found for: PHOS Uric Acid: No results found for: URICACID PT/INR: No results found for: PROTIME, INR Microalbumen/Creatinine ratio: No components found for: RUCREAT IRON: No results found for: IRON Iron Saturation: No components found for: LABIRON TIBC: No results found for: TIBC FERRITIN: No results found for: FERRITIN Input / Output: 24 HR: No intake or output data in the 24 hours ending 08/23/24 1437 IV Intake: Chery: Imaging: CT reviewed [1] Past Medical History: Diagnosis Date End stage renal failure on dialysis (HCC) Hypertension Type 1 diabetes mellitus (HCC) [2] History reviewed. No pertinent surgical history. [3] No family history on file. [4] Current Facility-Administered Medications Medication Dose Route Frequency Provider Last Rate Last Admin acetaminophen (Tylenol) tablet 1,000 mg 1,000 mg Oral TID Brayan Luz Marina, DO 1,000 mg at 08/23/24 1318 [Held by provider] amLODIPine (Norvasc) tablet 10 mg 10 mg Oral Daily Brayan Luz Marina, DO dextrose 5 % infusion 100 mL/hr IntraVENous PRN Brayan Luz Marina, DO dextrose 50 % solution 12.5 g 12.5 g IntraVENous PRN Brayan Luz Marina, DO glucagon (human recombinant) injection 1 mg 1 mg IntraMUSCular PRN Brayan Luz Marina, DO glucose oral gel 15 g 15 g Oral PRN Brayan Luz Marina, DO heparin injection 5,000 Units 5,000 Units SubCUTAneous 3 times per day Brayan Luz Marina, DO 5,000 Units at 08/23/24 1410 Insulin Pump - (Patient Supplied) SubCUTAneous Continuous Akbar Ahmet-Angela New Bag at 08/23/24 1358 [Held by provider] metoprolol succinate XL (Toprol-XL) 24 hr tablet 25 mg 25 mg Oral Daily Brayan Luz Marina, DO ondansetron ODT (Zofran-ODT) disintegrating tablet 4 mg 4 mg Oral q8h PRN Brayan Luz Marina, DO Or ondansetron (Zofran) injection 4 mg 4 mg IntraVENous q6h PRN Brayan Luz Marina, DO 4 mg at 08/23/24 1318 [START ON 08/24/2024] pantoprazole (ProtoNix) EC tablet 40 mg 40 mg Oral qAM AC Brayanreema Barros, DO piperacillin-tazobactam (Zosyn) 2,250 mg in sodium chloride 0.9 % 50 mL IVPB Mini-Bag Plus 2,250 mg IntraVENous q6h Brayan Luz Marina, DO 16.67 mL/hr at 08/23/24 1410 2,250 mg at 08/23/24 1410 polyethylene glycol (PEG) 3350 (Miralax) packet 17 g 17 g Oral Daily PRN Brayan Barros, DO rosuvastatin (Crestor) tablet 20 mg 20 mg Oral Nightly Brayan Luz Marina, DO vancomycin (Vancocin) 1750 mg in NS 500 mL IVPB (premix) 1,750 mg IntraVENous Once Brayan Luz Marina, DO vancomycin (Vancocin) intermittent dosing (placeholder) Other RX Placeholder Brayanreema Barros, DO Images from the original note were not included. Pharmacy Managed Vancomycin Dosing Service Consult Note Consult Date: 08/23/24 Patient Name: Farrah Gonzales Allergies: Patient has no known allergies. Age: 44 y.o. Sex: male Estimated body mass index is 27.2 kg/m as calculated from the following: Height as of this encounter: 1.803 m (5' 11). Weight as of this encounter: 88.5 kg (195 lb). DW: 88.5 kg Lab Results Component Value Date CREATININE 9.57 (H) 08/23/2024 BUN 59 (H) 08/23/2024 WBC 20.3 (H) 08/23/2024 Renal: [x]HD []CRRT []PD [] CrCl ml/min (Cockcroft-Gault, if ANN, no CHOREOGRAPHY DIRECTOR) Consulted By: Brayan Barros Vancomycin Level: []Trough [x]Random --> date/time future collection 4 hours post-HD, next HD currently not scheduled Infectious Diagnosis: Sepsis (target level = 15-20 mg/L) Antimicrobials: Patient recently received an antibiotic (last 12 hours) None Assessment/Plan: Intermittent vancomycin dosing (Pulse Dosing). Give Vancomycin 1750 mg x1 based on patient age, weight, renal status and infectious diagnosis (19.7 mg/kg). Will adjust dose/frequency if needed according to level. Follow renal status closely. Orders placed. Thank you for this consult. Please page/call with questions. Date: 08/23/24 Time: 1:53 PM Marlene Waller PharmD (available on [employer]) Associated Order(s): IP CONSULT TO ENDOCRINOLOGY Department of Internal Medicine Division of Endocrinology, Diabetes, & Metabolism Endocrinology Note Patient Name: Farrah Gonzales : 1980 AGE: 44 y.o. Room[facility]Bed: [facility] Admission Date: 08/23/2024 Visit Date: 08/23/2024 Reason for Endocrine Consult: Type 1 diabetes mellitus on insulin pump. Provider/Team Requesting Consult: Brayan Barros PCP: Kristal Sullivan MD Outpt Track Announcer: Yes . Jace Ko MD at outside endocrinology practice. ASSESSMENT: #1. Type 1 diabetes mellitus on insulin pump. #2. End-stage renal disease on hemodialysis with a permacath access. #3. Admitted with sepsis to determine etiology. PLAN: #1. Continue with insulin pump for now, patient does not have insulin pump supplies, so prior to August 25 need needs to be switched to basal bolus therapy. Consent signed. #2. Nurse to document blood glucose values on medical record AC and at bedtime, can take CGM data as source. #3. Check A1c ICU goal <180 GMF goal <150 POCT BG ACHS Hypoglycemia management per protocol Carb controlled diet ANTICIPATED ENDOCRINE HOME GOING RECOMMENDATIONS: Optimized for Discharge from Endocrine standpoint: No Home Going Endocrine Rx Recommendations-- On insulin pump. 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 SUBJECTIVE/HPI: CHIEF COMPLAINT: No chief complaint on file. Farrah is a 44-year-old white male who was admitted with sepsis, to determine etiology. He has a history of type 1 diabetes mellitus since age 18. He has been on an OmniPod for the last 3 years, with a [employer] G6 CGM. He uses auto mode on his pump. Insulin pump settings as follows: Basal rate 1.2 units/h Carb ratio 1 unit for every 50 g Insulin sensitivity factor I unit for every 50 above 110. Insulin active time 2.5 hours Insulin type NovoLog Total daily dose the last 3 days between 40 to 60 units. 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 He has been on hemodialysis since December 2023. Denies history of diabetic retinopathy or neuropathy. Denies history of thyroid disorder. Type of DM: 1 Onset of DM: Age 18 Home DM Medication Regimen: As above DM control (last A1c/glucose data): No results found for: HGBA1C No results found for: POCGLU Review of Systems ROS negative except for those mentioned in HPI. OBJECTIVE: Vitals: 08/23/24 1031 BP: 156/82 BP Location: Right arm Patient Position: Lying Pulse: 108 Resp: 20 Temp: 36.4 C (97.5 F) TempSrc: Temporal SpO2: 100% Weight: 195 lb (88.5 kg) Height: 5' 11 (1.803 m) Physical Exam Vitals reviewed. Constitutional: Appearance: He is ill-appearing. HENT: Mouth/Throat: Mouth: Mucous membranes are moist. Cardiovascular: Rate and Rhythm: Normal rate and regular rhythm. Pulmonary: Effort: Pulmonary effort is normal. Breath sounds: Normal breath sounds. Abdominal: General: Abdomen is flat. Bowel sounds are normal. Palpations: Abdomen is soft. Musculoskeletal: Cervical back: Neck supple. Right lower leg: No edema. Left lower leg: No edema. Skin: General: Skin is warm. Comments: Permacath R chest Neurological: General: No focal deficit present. Mental Status: He is alert and oriented to person, place, and time. Psychiatric: Mood and Affect: Mood normal. Behavior: Behavior normal. 24 hour intake/output:No intake or output data in the 24 hours ending 08/23/24 1249 Diet: Adult diet Regular; Low Sodium (2 gm); Low Potassium (Less than 3000 mg/day) Medications (as per EMR): HomeMeds: No current outpatient medications Scheduled Meds:Scheduled Meds[1] Continuous Infusions:Continuous Meds[2] PRN Meds:PRN Meds[3] Diagnostic Workup: I reviewed pertinent Laboratory results, Radiographic results, and Other Clinical Notes at the time of today's encounter. Labs: No components found for: LABA1C No components found for: EAG No results found for: NA, K, CL, CO2, BUN, CREATININE, GLUCOSE, CALCIUM No results found for: CHLPL, CHOL No results found for: TRIG No results found for: HDL No results found for: LDLCALC No results found for: VLDL No results found for: CHOLHDLRATIO No results found for: [id number] No results found for: TSH, B6PBNSJ, T2PGWJO, THYROIDAB Radiology reportsas per the Radiologist Radiology: ECG 12 lead Result Date: 08/23/2024 Sinus tachycardia Consider anterior infarct Nonspecific T abnormalities, lateral leads History/Other: Past Medical History: Medical History[4] Past Surgical History: Surgical History[5] Allergy(ies): Allergies[6] Family History: Family History[7] Social History: Social History[8] Portions of the information within this encounter were entered using an electronic dictation system. Best attempts were made to edit/proofread the information prior to note completion. Despite the review of information, some errors may remain. If there are questions related to the information contained within the note please contact the signing physician directly. I spent 60 minutes with the pt which involved coordination of care, medical evaluation, review of records, and/or counseling of the pt regarding his/her condition/disease state/prognosis on the date of this note. [1] acetaminophen, 1,000 mg, Oral, TID [Held by provider] amLODIPine, 10 mg, Oral, Daily heparin, 5,000 Units, SubCUTAneous, 3 times per day insulin lispro, 0-6 Units, SubCUTAneous, TID WC And insulin lispro, 0-6 Units, SubCUTAneous, Nightly [Held by provider] metoprolol succinate XL, 25 mg, Oral, Daily [START ON 08/24/2024] pantoprazole, 40 mg, Oral, qAM AC piperacillin-tazobactam, 4,500 mg, IntraVENous, q6h rosuvastatin, 20 mg, Oral, Nightly [2] [3] PRN medications: dextrose, dextrose, glucagon (rDNA), glucose, ondansetron ODT OR ondansetron, polyethylene glycol (PEG) 3350 [4] Past Medical History: Diagnosis Date End stage renal failure on dialysis (HCC) Hypertension Type 1 diabetes mellitus (HCC) [5] History reviewed. No pertinent surgical history. [6] No Known Allergies [7] No family history on file. [8] Social History Tobacco Use Smoking status: Never Smokeless tobacco: Never Substance Use Topics Alcohol use: Never Drug use: Never documented in this encounter [facility] 08-25-2024 Nurse Note Formatting of this note might be differe nt from the original. Instructed patient to turn off insulin pump per endocrine order last pm. Patient confirmed insulin pump is off. [facility] 08-25-2024 Note [facility] - Infectious Diseases Advanced Practice Provider Progress Note Subjective: ID following patient for MSSA bacteremia. Notes reviewed. Tunneled line removed yesterday. Patient reports he is feeling better overall. Reports still having diarrhea, but states it is soft & mushy today rather than watery like it has been past few days. Notes nausea and vomiting has resolved. Denies fever, chills, CP, SOB, abdominal pain, and any new urinary issues. No other new exacerbating or alleviating factors. Objective: Vitals: Patient Vitals for the past 24 hrs: BP Temp Temp src Pulse Resp SpO2 Weight 08/25/24 1240 -- (!) 35.8 ?C (96.5 ?F) Temporal 108 -- 97 % -- 08/25/24 1100 -- -- -- -- -- -- 89.7 kg (197 lb 12.8 oz) 08/25/24 0837 145/85 36.9 ?C (98.5 ?F) Temporal 113 20 96 % -- 08/25/24 0620 (!) 184/103 36.6 ?C (97.8 ?F) Temporal 115 15 -- -- 08/24/24 2047 135/83 36.6 ?C (97.9 ?F) Temporal 100 15 96 % -- 08/24/24 1816 129/77 36.3 ?C (97.4 ?F) Temporal 106 20 96 % -- 08/24/24 1435 144/91 36.2 ?C (97.1 ?F) Temporal 99 20 99 % -- Physical Exam: Physical Exam Vitals and nursing note reviewed. Constitutional: General: He is not in acute distress. Appearance: Normal appearance. He is normal weight. He is not ill-appearing. Comments: NAD laying in bed. Interactive, cooperative, conversant HENT: Head: Normocephalic and atraumatic. Right Ear: External ear normal. Left Ear: External ear normal. Nose: Nose normal. Mouth/Throat: Mouth: Mucous membranes are moist. Pharynx: Oropharynx is clear. Eyes: Extraocular Movements: Extraocular movements intact. Conjunctiva/sclera: Conjunctivae normal. Pupils: Pupils are equal, round, and reactive to light. Cardiovascular: Rate and Rhythm: Normal rate and regular rhythm. Pulses: Normal pulses. Heart sounds: Normal heart sounds. Pulmonary: Effort: Pulmonary effort is normal. Breath sounds: Normal breath sounds. No wheezing, rhonchi or rales. Comments: Breathing unlabored on room air. No wheezes, rales, rhonchi Abdominal: General: Abdomen is flat. Bowel sounds are normal. There is no distension. Palpations: Abdomen is soft. Tenderness: There is no abdominal tenderness. There is no guarding. Musculoskeletal: Right lower leg: No edema. Left lower leg: No edema. Skin: General: Skin is warm and dry. Comments: R chest TDC removal site dressed. L AVF Neurological: General: No focal deficit present. Mental Status: He is alert and oriented to person, place, and time. Psychiatric: Mood and Affect: Mood normal. Behavior: Behavior normal. Labs: Recent Labs 08/23/24 1300 08/24/24 04108/25/24518 NA 134* 135* 135* K 4.4 4.0 3.5 CL 99 101 98 CO2 20* 19* 24 BUN 59* 27* 43* CREATININE 9.57* 5.47* 7.05* GLUCOSE 224* 140* 128* CALCIUM 8.8 8.8 9.5 PROT 6.4 6.2* 6.7 BILITOT 0.5 0.5 0.4 ALKPHOS 85 80 128 AST 22 81* 110* ALT 10 37 63* PROCAL 5.94* -- -- Recent Labs 08/23/24 1300 08/24/2441108/25/24518 WBC 20.3* 10.7 6.8 HGB 10.4* 9.6* 9.6* HCT 29.5* 28.3* 28.2* PLT 177 153 171 LYMPHOPCT 4* 3.7* 10.0* MONOPCT 3* 6.9 7.4 BASOPCT -- 0.4 0.4 NEUTROABS -- 9.4* 5.3 Micro: No results for input(s): COVID19 in the last 72 hours. 08/23 Blood Cx: 2/2 MSSA 08/23 Resp PCR panel: neg 08/24 Strep/Legionella Ag: neg 08/24 Sputum Cx: cancelled dt poor quality 08/25 Blood Cx: in process Lines: R chest TDC L AVF Radiography/Echo/Other: 08/23 CXR No acute cardiopulmonary disease. 08/23 CT chest/abd/pelvis 1. CT CHEST --- There are no definite infiltrates masses or pleural effusions Right jugular tunneled dialysis catheter, left coronary artery stent with calcified plaquing. 2. CT ABDOMEN--- There is a heterogeneous large 7.7 cm MASS right lobe liver. Aortoiliac calcified plaquing with probable punctate areas of left renal artery calcification. Question of punctate gallbladder calculi or hyperdense small areas of sludge. 3. CT PELVIS--- There is a normal appendix with no free fluid or free air. Moderate amount of stool in colon with few small scattered colonic diverticuli. Antimicrobials,Start/End Dates: Cefazolin: 08/24- present Pip-Tazo: 08/23-08/24 Vanc: 08/23 Impression: MSSA bacteremia Tunneled line removal 08/[address] mass on CT scan T1DM Plan: Patient with MSSA bacteremia- suspect 05/02 TDC. Line removed 08/24 for line holiday. TTE pending. 08/25 Repeat Blood Cx in process. Patient has AVF. He notes he was to have Vasc US this week to ensure functioning appropriately prior to use. Will defer decision for dialysis access to Nephrology. Continue renally-dosed Cefazolin 1g IV q24h for now. Follow repeat Blood Cx to ensure clearance. Repeat Blood Cx will need to be negative x72 hours prior to replacing tunneled line if it is needed. Monitor infectious parameters. ID will continue to follow. Case and plan discussed with (more content not included)... [facility] 08-25-2024 Note Nephrology Progress Note Following for ESRD mgt Pt seen in room had CVC removed 08/24 for line holiday Has current LAVF placed 07/2023 had revision + bruit /thrill Pt asking if its ok to use AVF was suppose to have US and appt with vascular today in [place] Current Inpatient Medications: Reviewed on MAY. Vitals: BP 145/85 (BP Location: Right arm, Patient Position: Lying) Pulse 113 Temp 36.9 ?C (98.5 ?F) (Temporal) Resp 20 Ht 1.803 m (5' 11) Wt 89.7 kg (197 lb 12.8 oz) SpO2 96% BMI 27.59 kg/m? BLOOD PRESSURE RANGE: Systolic (24hrs), Av , Min:129 , Max:184 ; Diastolic (24hrs), Av, Min:77, Max:103 24HR INTAKE/OUTPUT: Intake/Output Summary (Last 24 hours) at 08/25/2024 1131 Last data filed at 08/25/2024 0519 Gross per 24 hour Intake 483.2 ml Output 0 ml Net 483.2 ml Physical exam: Constitutional: NAD Cardiovascular: Normal S1, S2 without m/r/g Respiratory: CTAB without w/r/r Abdomen: +bs, soft, nt, nd Ext: no lower extremity edema Data: Labs: Recent Labs 08/23/24 1300 08/24/24 0412 08/25/24 0519 WBC 20.3* 10.7 6.8 HGB 10.4* 9.6* 9.6* HCT 29.5* 28.3* 28.2* MCV 88.3 89.8 89.8 PLT 177 153 171 Recent Labs 08/23/24 1300 08/24/24 0412 08/25/24 0519 NA 134* 135* 135* K 4.4 4.0 3.5 CL 99 101 98 CO2 20* 19* 24 GLUCOSE 224* 140* 128* CALCIUM 8.8 8.8 9.5 PHOS -- 2.9 3.9 MG -- 1.9 2.1 BUN 59* 27* 43* CREATININE 9.57* 5.47* 7.05* Assessment and Plan: 44 y.o. male with PMH of diabetes, hypertension, end-stage renal disease admitted to the hospital with sepsis. 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 - Bp acceptable - UF as tolerated with HD Hyponatremia. Likely from poor solute intake - should improve with HD - check Sna in AM Anemia in CKD. Hgb below goal - KELLI as OP - follow H&H - blood TF per primary team hgb <7 CKDMBD. Not on binders at this time - check phos in AM - phos gaol 3.5-5.5 MSSA Bacteremia Antimicrobials,Start/End Dates: Cefazolin: 08/24- present Pip-Tazo: 08/23-08/24 Vanc: 08/23 ID following Plan - continue HD MWF, currently on line holiday due to bacteremia -has mature AVF in L Larm - monitor volume status electrolytes daily -check phos in am Pt seen and examined independently by me. 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 I discussed the patient?s diagnosis and concur with the treatment plan as documented in his note. Please call [phone] or message me through [email or web address] with any questions or concerns. [facility] 08-25-2024 Note Formatting of this note might be differe nt from the original. Dialysis cath removed yesterday for line holiday. If HD needed a temp line can be placed per ID. Repeat culture ordered- 1 set pending. IV ancef continued- possible need for oysterman abx. GI s/o. Hepatobiliary surg consulted. Endo/ ID following. Anticipate discharge home with no needs. [facility] 08-25-2024 Note Formatting of this note might be differe nt from the original. Dialysis cath removed yesterday for line holiday. If HD needed a temp line can be placed per ID. Repeat culture ordered- 1 set pending. IV ancef continued- possible need for halfway abx. GI s/o. Hepatobiliary surg consulted. Endo/ ID following. Anticipate discharge home with no needs. T [facility] 08-24-2024 Nurse Note Formatting of this note might be differe nt from the original. CGM 344 T [facility] 08-24-2024 Nurse Note Formatting of this note might be differe nt from the original. Central Line Removal Note Line Type: Tunneled Hemodialysis Catheter Line Location: Right Subclavian Line Size: 14.5 Fr x 19cm The procedure was explained to the patient and/or healthcare decision maker and they agreed to proceed. The central line dressing was removed and a sterile field was set up on the bedside table. Sterile towels were draped around the insertion site. The insertion site and entire exposed catheter and lumens was cleaned with antiseptic spray. Sterile gloves were donned. Sutures were cut and removed from the skin. Breathing exercises were explained to the patient. The patient was laid flat. Sterile gauze was placed over the insertion site and the entire intact catheter and cuff was removed without incident. Pressure was held at the site until hemostasis was achieved. Skin was cleansed of antiseptic with saline moistened gauze. Site was covered with a dry sterile dressing. Patient tolerated the procedure well. Everyone in the room wore a mask for the duration of the procedure. [facility] 08-24-2024 Nurse Note Formatting of this note might be differe nt from the original. CGM reading is 199 T [facility] 08-24-2024 Note Formatting of this note might be differe nt from the original. Pt adm for tx/ eval of sepsis- transfer from [facility]. HD- [facility]. IV zosyn/ vanc continued. Respiratory culture positive. BC positive. XR chest/ CT abd pelvis completed. Echo pending. Per nursing pt is vomiting today. GI/ID consulted. Anticipate discharge home. Possible halfway abx. [facility] 08-24-2024 Note Formatting of this note might be differe nt from the original. Pt adm for tx/ eval of sepsis- transfer from [facility]. HD- [facility]. IV zosyn/ vanc continued. Respiratory culture positive. BC positive. XR chest/ CT abd pelvis completed. Echo pending. Per nursing pt is vomiting today. GI/ID consulted. Anticipate discharge home. Possible oysterman abx. [facility] 08-24-2024 Consult note Associated Order(s): IP CONSULT TO GI Department of Internal Medicine Gastroenterology Attending Consult Note Reason for Consult: The patient was seen in consultation at the request of Dr. Hayde Barros re: 7.7 cm new liver mass on CT imaging. CHIEF COMPLAINT: Fever body aches History Obtained From: Patient and EMR HISTORY OF PRESENT ILLNESS: The patient is a 44 y.o. male with significant past medical history of T1DM, ESRD, and HTN who presents as a transfer from [place] ED with sepsis (T 103, BP 93/78. HR 135. GI asked to evaluate for liver mass on CT. Prior EGD 2011. Denies prior colonoscopy and abdominal surgery. Denies current use of OAC, NSAIDS, tobacco, ETOH and recreational drugs. Allergies: Patient has no known allergies. Current Medications: Current Medications[1] Past Medical History: Active Ambulatory Problems Diagnosis Date Noted No Active Ambulatory Problems Resolved Ambulatory Problems Diagnosis Date Noted No Resolved Ambulatory Problems Past Medical History: Diagnosis Date End stage renal failure on dialysis (HCC) Hypertension Type 1 diabetes mellitus (HCC) Past Surgical History: Social History Socioeconomic History Marital status: Spouse name: Not on file Number of children: Not on file Years of education: Not on file Highest education level: Not on file Occupational History Not on file Tobacco Use Smoking status: Never Smokeless tobacco: Never Substance and Sexual Activity Alcohol use: Never Drug use: Never Sexual activity: Defer Other Topics Concern Not on file Social History Narrative Not on file Social Drivers of Health Financial Resource Strain: Low Risk (07/02/2022) Received from [facility] Overall Financial Resource Strain (CARDIA) Difficulty of Paying Living Expenses: Not hard at all Food Insecurity: No Food Insecurity (07/02/2022) Received from [facility] Hunger Vital Sign Worried About Running Out of Food in the Last Year: Never true Ran Out of Food in the Last Year: Never true Transportation Needs: No Transportation Needs (07/02/2022) Received from [facility] PRAPARE - Transportation Lack of Transportation (Medical): No Lack of Transportation (Non-Medical): No Physical Activity: Inactive (07/02/2022) Received from [facility] Exercise Vital Sign Days of Exercise per Week: 0 days Minutes of Exercise per Session: 0 min Stress: No Stress Concern Present (07/02/2022) Received from [facility] [place] [facility] [employer] - Occupational Stress Questionnaire Feeling of Stress : Not at all Social Connections: Socially Integrated (07/02/2022) Received from [facility] Social Connection and Isolation Panel [NHANES] Frequency of Communication with Friends and Family: More than three times a week Frequency of Social Gatherings with Friends and Family: More than three times a week Attends Gnosticism Services: More than 4 times per year Active Member of Clubs or Organizations: Yes Attends Club or Organization Meetings: More than 4 times per year Marital Status: Living with partner Intimate Partner Violence: Not on file Housing Stability: Low Risk (07/02/2022) Received from [facility] Housing Stability Vital Sign Unable to Pay for Housing in the Last Year: No Number of Places Lived in the Last Year: 1 Unstable Housing in the Last Year: No Family History: Family History[2] No family history colon or stomach cancer. Social History: TOBACCO: reports that he has never smoked. He has never used smokeless tobacco. ETOH: reports no history of alcohol use. DRUGS: reports no history of drug use. 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 Normal appetite and weight. No DUTTA, visual disturbance, eye pain, jaundice, sore throat or mouth ulcers. No skin rash or itching. No CP, SOB, ERICKSON, cough or wheeze. No urinary frequency, urgency, hematuria, or dysuria. No myalgia, arthralgia, or joint swelling. No weakness, numbness, or confusion. GI per HPI. No polyuria, polydipsia, heat or cold intolerance. PHYSICAL EXAM: VS: BP (!) 168/96 Pulse 115 Temp (!) 35.9 C (96.7 F) (Temporal) Resp 20 Ht 5' 11 (1.803 m) Wt 195 lb (88.5 kg) SpO2 100% BMI 27.20 kg/m Body mass index is 27.2 kg/m . Constitutional: No acute distress. Well-nourished. Well hydrated, resting in bed Head/Eyes: Pupils are equal and round; Conjunctiva are not injected; Sclera are non-icteric. ENT: Ears/nose without external abnormalities. Oral mucosa is pink and moist. Neck: No JVD. No carotid bruits; No thyromegaly. Respiratory: Clear to auscultation bilaterally without any added sounds. Effort is normal Heart: Regular, Normal S1 and S2. No murmur; No added sounds. Abdomen: Normal BS, soft, non-tender, non-distended; no hepatomegaly. Extremities/Skin: No LE edema; Skin warm to touch and well perfused. Musculoskeletal: Head - normocephalic. Neck - supple Psychiatric: AAO x 3, answers appropriately, normal mood, normal affect. DATA: Recent blood work and relevant radiologic and endoscopic studies were reviewed and discussed with the patient. CBC: Recent Labs 08/23/24 1300 08/24/24 0412 WBC 20.3* 10.7 RBC 3.34* 3.15* HGB 10.4* 9.6* HCT 29.5* 28.3* MCV 88.3 89.8 MCH 31.1 30.5 MCHC 35.3 33.9 RDW 13.0 13.0 PLT 177 153 MPV 9.7 9.8 CMP: Recent Labs 08/23/24 1300 08/24/24 0412 NA 134* 135* K 4.4 4.0 CL 99 101 CO2 20* 19* BUN 59* 27* CREATININE 9.57* 5.47* GLUCOSE 224* 140* CALCIUM 8.8 8.8 PROT 6.4 6.2* BILITOT 0.5 0.5 ALKPHOS 85 80 AST 22 81* ALT [address] CAP w 08/23/2024: HISTORY: Nausea vomiting sepsis of unknown origin After intravenous contrast, sections performed through the chest abdomen pelvis. Dose reduction was employed with automated exposure control. No comparison CT studies. FINDINGS: 1. CT CHEST --- There are no definite infiltrates masses or pleural effusions Right jugular tunneled dialysis catheter, left coronary artery stent with calcified plaquing. 2. CT ABDOMEN--- There is a heterogeneous large 7.7 cm MASS right lobe liver. Aortoiliac calcified plaquing with probable punctate areas of left renal artery calcification. Question of punctate gallbladder calculi or hyperdense small areas of sludge. 3. CT PELVIS--- There is a normal appendix with no free fluid or free air. Moderate amount of stool in colon with few small scattered colonic diverticuli. Endoscopic Review [facility] Gastrointestinal Endoscopy Patient Name: Laurie Gonzales Procedure Date: 10/09/2011 7:00 AM Date of : 1980 Admit Type: Ambulatory Age: 31 Gender: Male Note Status: Finalized Procedure: Upper GI endoscopy Indications: Heartburn. Nausea with vomiting. Recently admitted to hospital in [facility] in June with severe DKA. Had N/V with pt reported hemetemsis - not seen during hospitalization. Records reviewed. Please see recent office note dated 10/04/11 for clinical details. Providers: Keith Ndiaye MD Referring Physician: Dr Melvin Mosley Medicines: Meperidine 65 mg IV, Midazolam 3.5 mg IV, Benzocaine spray Complications: No immediate complications. Requesting Provider: Procedure: Pre-Anesthesia Assessment: - Respiratory Examination: clear to auscultation. - CV Examination: RRR, no murmurs, no S3 or S4. - Abdominal Examination: bowel sounds present, abdomen soft and non-tender, no masses or organomegaly noted. After obtaining informed consent, the endoscope was passed under direct vision. Throughout the procedure, the patient's blood pressure, pulse, and oxygen saturations were monitored continuously. The Endoscope was introduced through the mouth, and advanced to the third part of duodenum. The upper GI endoscopy was accomplished without difficulty. The patient tolerated the procedure well. Findings: Diffuse mild erythema with linear erosions was found in the lower third of the esophagus. The Z-line was variable. No bxs were necessary.The exam of the esophagus was otherwise normal. There is no endoscopic evidence of Michelle's esophagus, nodules or stricture in the lower third of the esophagus. A medium amount of food (residue) was found on the greater curvature of the stomach, clearly representing gastroparesis.Diffuse mildly erythematous mucosa was found in the gastric antrum. The exam of the stomach was otherwise normal. There is no evidence of outlet obstruction.Biopsies were taken with a cold forceps for Helicobacter pylori testing. Normal mucosa was found in the entire duodenum. Impression: - Erythema and erosions in the lower third of the esophagus. - Z-line variable. - A medium amount of food remains in the stomach representing gastroparesis. - Gastric mucosal abnormality in the antrum characterized by erythema. - Biopsies were taken with a cold forceps for Helicobacter pylori testing. Recommendation: - Follow-up on the results of the biopsy specimens in 1 day. - Elevation of the head of the bed 4 inches and avoidance of late-night snacks. - Continue present medications. Protonix (am) and ranitidine(pm). He should avoud NSAIDs and ASA if possible. The treament of gastroparesis is difficult at best. Would try to avoid Reglan. Small frequent meals, no late night snacks, and tight control of his blood sugar are to be recommended. Prokinetic agents such as erythromicin have limited and varying success. IMPRESSION/RECOMMENDATIONS: 7.[address] Scan Sepsis Hx T1DM Hx ESRD on HD M,W,F Plan: Patient transferred [facility] from [place] ED for sepsis and need for HD. CT scan notable for liver mass not seen on CT scan 2023. Patient reports being told that he has a hemangioma recently, no imaging or report of this in paper chart. No role for GI for liver mass. - Consult HPB surgery. - Continue to trend LFTs daily. - Continue medical management and supportive care per primary team. The GI/Liver consult service will sign off. Please call if there are any questions, concerns or change of patient's GI condition. Thanks. [1] Current Facility-Administered Medications: acetaminophen (Tylenol) tablet 1,000 mg, 1,000 mg, Oral, TID, Brayan Barros DO, 1,000 mg at 08/24/24 0929 amLODIPine (Norvasc) tablet 10 mg, 10 mg, Oral, Daily, Kwesi uMnson MD ceFAZolin (Ancef) 1,000 mg in sodium chloride 0.9 % 50 mL IVPB, 1,000 mg, IntraVENous, q24h, Kwesi Munson MD dextrose 5 % infusion, 100 mL/hr, IntraVENous, PRN, Brayan Barros DO dextrose 50 % solution 12.5 g, 12.5 g, IntraVENous, PRN, Brayan Barros, DO glucagon (human recombinant) injection 1 mg, 1 mg, IntraMUSCular, PRN, Brayan Barros DO glucose oral gel 15 g, 15 g, Oral, PRN, Brayan Barros, DO heparin injection 1,600 Units, 1,600 Units, IntraCATHeter, PRNOsmel MD, 1,600 Units at 08/23/24 2333 heparin injection 1,600 Units, 1,600 Units, IntraCATHeter, PRN, Osmel Andrade MD, 1,600 Units at 08/23/24 2333 heparin injection 5,000 Units, 5,000 Units, SubCUTAneous, 3 times per day, Brayan Barros DO, 5,000 Units at 08/24/24 0540 Insulin Pump - (Patient Supplied), , SubCUTAneous, Continuous, Akbar Leo-Angela, New Bag at 08/23/24 1358 Lidocaine 4 % patch 1 patch, 1 patch, TransDERmal, Daily PRN, Brayan Barros DO, 1 patch at 08/23/24 1819 [Held by provider] metoprolol succinate XL (Toprol-XL) 24 hr tablet 25 mg, 25 mg, Oral, Daily, Brayan Barros DO ondansetron ODT (Zofran-ODT) disintegrating tablet 4 mg, 4 mg, Oral, q8h PRN OR ondansetron (Zofran) injection 4 mg, 4 mg, IntraVENous, q6h PRN, Brayan Barros DO, 4 mg at 08/24/24 0540 pantoprazole (ProtoNix) EC tablet 40 mg, 40 mg, Oral, qAM AC, Brayan Barros DO, 40 mg at 08/24/24 0540 polyethylene glycol (PEG) 3350 (Miralax) packet 17 g, 17 g, Oral, Daily PRN, Brayan Barros DO prochlorperazine (Compazine) tablet 10 mg, 10 mg, Oral, q6h PRN OR prochlorperazine (Compazine) injection 10 mg, 10 mg, IntraVENous, q6h PRN, 10 mg at 08/24/24 0824 OR prochlorperazine (Compazine) suppository 25 mg, 25 mg, Rectal, q12h PRN, Palvir MD Arpit rosuvastatin (Crestor) tablet 20 mg, 20 mg, Oral, Nightly, Brayan Barros DO, 20 mg at 08/23/242007 [2] No family history on file. Cosigned by Juan Licona MD at 08/25/2024 3:06 PM EDT Electronically signed by Raeann Cowart, [employer] MACHINE TENDER - MEDICAL LABORATORY SPECIALIST at 08/24/2024 1:36 PM EDT [employer] Work Phone: 08-24-2024 Note Nephrology Progress Note Following for ESRD mgt Pt seen in room no complaints today Tolerated HD yesterday Current Inpatient Medications: Reviewed on MAY. Vitals: BP (!) 168/96 Pulse 115 Temp (!) 35.9 ?C (96.7 ?F) (Temporal) Resp 20 Ht 1.803 m (5' 11) Wt 88.5 kg (195 lb) SpO2 100% BMI 27.20 kg/m? BLOOD PRESSURE RANGE: Systolic (24hrs), Av , Min:129 , Max:186 ; Diastolic (24hrs), Av, Min:74, Max:104 24HR INTAKE/OUTPUT: Intake/Output Summary (Last 24 hours) at 08/24/2024 1008 Last data filed at 08/24/2024 0535 Gross per 24 hour Intake 2069.79 ml Output 2360 ml Net -290.21 ml Physical exam: Constitutional: NAD Cardiovascular: Normal S1, S2 without m/r/g Respiratory: CTAB without w/r/r Abdomen: +bs, soft, nt, nd Ext: no lower extremity edema Data: Labs: Recent Labs 08/23/24 1300 08/24/24 0412 WBC 20.3* 10.7 HGB 10.4* 9.6* HCT 29.5* 28.3* MCV 88.3 89.8 PLT 177 153 Recent Labs 08/23/24 1300 08/24/24 0412 NA 134* 135* K 4.4 4.0 CL 99 101 CO2 20* 19* GLUCOSE 224* 140* CALCIUM 8.8 8.8 PHOS -- 2.9 MG -- 1.9 BUN 59* 27* CREATININE 9.57* 5.47* Assessment and Plan: 4 y.o. male with PMH of diabetes, hypertension, end-stage renal disease admitted to the hospital with sepsis. 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 - Bp acceptable - UF as tolerated with HD Hyponatremia. Likely from poor solute intake - should improve with HD - check Sna in AM Anemia in CKD. Hgb below goal - KELLI as OP - follow H&H - blood TF per primary team hgb <7 CKDMBD. Not on binders at this time - check phos in AM - phos gaol 3.5-5.5 Plan - continue HD MWF - monitor volume status electrolytes daily -check phos in am Thank you for allowing me to care for pt. Feel free to reach out with any questions or concerns Kim Blackwell APRN MEDICAL LABORATORY SPECIALIST A-G OCCUPATIONAL THERAPY INSTRUCTOR [facility] [place] [phone] Pt seen and examined independently by me. I reviewed with [employer] TENDER-MEDICAL LABORATORY SPECIALIST the medical history and the findings on physical examination. I discussed the patient?s diagnosis and concur with the treatment plan as documented in his note. Please call [phone] or message me through [email or web address] with any questions or concerns. [facility] 08-24-2024 Consult note Associated Order(s): IP CONSULT TO INFEC TIOUS DISEASES Images from the original note were not included. [facility] - Infectious Diseases Advanced Practice Provider Consult Note Reason for Consult: MSSA bacteremia History of Present Illness: 44 yo male with PMHx significant for T1DM, ESRD via TDC, and HTN who presents 08/23 from [place] ED with fever, hypotension, tachycardia concerning for sepsis. Patient reports starting Friday he developed intractable nausea and vomiting. He notes he had some diarrhea last night. Denies fever, chills, CP, SOB, cough, congestion, joint or back pain, and any urinary issues (He notes still produces own urine). Denies any open wounds, hardware presence, or recent dental procedures/cleanings. Notes his TDC has been in placed since December, no recent exchanges. Notes the area is sore and pruritic, but states it has felt this way since December. Denies any redness or swelling around catheter or any drainage. No other new exacerbating or alleviating factors. On presentation, patient afebrile, normotensive, on room air. Labs- WBC 20.3-> 10.7, lactic acid 1.5, procal 5.94, BNP [address]27. CXR negative. CT chest/abd/pelvis performed and without infiltrates, masses, pleural effusions; shows R TDC in place and a large heterogenous 7.7cm R lobe liver mass. 08/23 Blood Cx collected 05/02 GPC (MSSA detected). Resp PCR panel and Strep/Legionella Ag negative. Patient is currently on Cefazolin. Past Medical History: Medical History[1] Past Surgical History: Surgical History[2] Current Medications: Current Medications[3] Allergies: Allergies[4] Social History: Social History Socioeconomic History Marital status: Spouse name: Not on file Number of children: Not on file Years of education: Not on file Highest education level: Not on file Occupational History Not on file Tobacco Use Smoking status: Never Smokeless tobacco: Never Substance and Sexual Activity Alcohol use: Never Drug use: Never Sexual activity: Defer Other Topics Concern Not on file Social History Narrative Not on file Social Drivers of Health Financial Resource Strain: Low Risk (07/02/2022) Received from [facility] Overall Financial Resource Strain (CARDIA) Difficulty of Paying Living Expenses: Not hard at all Food Insecurity: No Food Insecurity (07/02/2022) Received from [facility] Hunger Vital Sign Worried About Running Out of Food in the Last Year: Never true Ran Out of Food in the Last Year: Never true Transportation Needs: No Transportation Needs (07/02/2022) Received from [facility] PRAPARE - Transportation Lack of Transportation (Medical): No Lack of Transportation (Non-Medical): No Physical Activity: Inactive (07/02/2022) Received from [facility] Exercise Vital Sign Days of Exercise per Week: 0 days Minutes of Exercise per Session: 0 min Stress: No Stress Concern Present (07/02/2022) Received from [facility] [place] [facility] Occupational [facility] - Occupational Stress Questionnaire Feeling of Stress : Not at all Social Connections: Socially Integrated (07/02/2022) Received from [facility] Social Connection and Isolation Panel [NHANES] Frequency of Communication with Friends and Family: More than three times a week Frequency of Social Gatherings with Friends and Family: More than three times a week Attends Gnosticism Services: More than 4 times per year Active Member of Clubs or Organizations: Yes Attends Club or Organization Meetings: More than 4 times per year Marital Status: Living with partner Intimate Partner Violence: Not on file Housing Stability: Low Risk (07/02/2022) Received from [facility] Housing Stability Vital Sign Unable to Pay for Housing in the Last Year: No Number of Places Lived in the Last Year: 1 Unstable Housing in the Last Year: No Family History: Family History[5] Review of Systems: Review of Systems Constitutional: Negative for chills, fatigue and fever. HENT: Negative for congestion, ear pain, postnasal drip, rhinorrhea, sinus pressure, sinus pain and sore throat. Eyes: Negative for pain, discharge and itching. Respiratory: Negative for cough, chest tightness and shortness of breath. Cardiovascular: Negative for chest pain, palpitations and leg swelling. Gastrointestinal: Positive for nausea and vomiting. Negative for abdominal distention, abdominal pain, constipation and diarrhea. Genitourinary: Negative for dysuria, flank pain, frequency and urgency. Musculoskeletal: Negative for arthralgias and myalgias. Skin: Negative for color change, rash and wound. Neurological: Negative for dizziness, weakness, light-headedness and headaches. Vitals: Patient Vitals for the past 24 hrs: BP Temp Temp src Pulse Resp SpO2 Height Weight 08/24/24 0825 (!) 168/96 (!) 35.9 C (96.7 F) Temporal 115 20 100 % -- -- 08/24/24 0418 144/86 36.4 C (97.6 F) Temporal (!) 123 18 98 % -- -- 08/23/24 2358 142/83 37.6 C (99.7 F) Temporal (!) 127 22 99 % -- -- 08/23/24 2325 158/74 -- -- (!) 129 -- -- -- -- 08/23/24 2300 (!) 163/93 -- -- (!) 136 -- -- -- -- 08/23/24 2248 143/76 -- -- (!) 125 -- -- -- -- 08/23/24 2245 129/74 -- -- (!) 127 -- -- -- -- 08/23/24 2230 159/75 -- -- 113 -- -- -- -- 08/23/24 2215 151/81 -- -- 117 -- -- -- -- 08/23/24 2200 (!) 175/87 -- -- 120 -- -- -- -- 08/23/24 2145 (!) 165/90 -- -- 117 -- -- -- -- 08/23/242129 (!) 186/97 -- -- 114 -- -- -- -- 08/23/242114 (!) 179/101 -- -- 112 -- -- -- -- 08/23/242099 (!) 180/94 -- -- 109 -- -- -- -- 08/23/242044 (!) 178/99 -- -- 107 -- -- -- -- 08/23/242029 (!) 174/83 -- -- 110 -- -- -- -- 08/23/242024 (!) 172/104 -- -- 112 -- -- -- -- 08/23/241944 (!) 163/87 37.1 C (98.7 F) Temporal 107 17 99 % -- -- 08/23/24 1624 149/87 37 C (98.6 F) Temporal 102 16 97 % -- -- 08/23/24 1031 156/82 36.4 C (97.5 F) Temporal 108 20 100 % 1.803 m (5' 11) 88.5 kg (195 lb) Physical Exam: Physical Exam Vitals and nursing note reviewed. Constitutional: General: He is not in acute distress. Appearance: Normal appearance. He is normal weight. He is not ill-appearing. Comments: NAD laying in bed. Interactive, cooperative, conversant. Flat affect HENT: Head: Normocephalic and atraumatic. Right Ear: External ear normal. Left Ear: External ear normal. Nose: Nose normal. Mouth/Throat: Mouth: Mucous membranes are moist. Pharynx: Oropharynx is clear. Eyes: Extraocular Movements: Extraocular movements intact. Conjunctiva/sclera: Conjunctivae normal. Pupils: Pupils are equal, round, and reactive to light. Cardiovascular: Rate and Rhythm: Normal rate and regular rhythm. Pulses: Normal pulses. Heart sounds: Normal heart sounds. Pulmonary: Effort: Pulmonary effort is normal. Breath sounds: Normal breath sounds. No wheezing, rhonchi or rales. Comments: Breathing unlabored on room air. CTAB Abdominal: General: Abdomen is flat. Bowel sounds are normal. There is no distension. Palpations: Abdomen is soft. Tenderness: There is no abdominal tenderness. There is no guarding. Musculoskeletal: Right lower leg: No edema. Left lower leg: No edema. Skin: General: Skin is warm and dry. Comments: R chest TDC insertion site slightly pink. No tenderness, fluctuance, or drainage L AVF Neurological: General: No focal deficit present. Mental Status: He is alert and oriented to person, place, and time. Psychiatric: Mood and Affect: Mood normal. Behavior: Behavior normal. Labs: Recent Labs 08/23/24 1300 08/24/24 0412 NA 134* 135* K 4.4 4.0 CL 99 101 CO2 20* 19* BUN 59* 27* CREATININE 9.57* 5.47* GLUCOSE 224* 140* CALCIUM 8.8 8.8 PROT 6.4 6.2* BILITOT 0.5 0.5 ALKPHOS 85 80 AST 22 81* ALT 10 37 PROCAL 5.94* -- Recent Labs 08/23/24 1300 08/24/24 0412 WBC 20.3* 10.7 HGB 10.4* 9.6* HCT 29.5* 28.3* PLT 177 153 LYMPHOPCT 4* 3.7* MONOPCT 3* 6.9 BASOPCT -- 0.4 NEUTROABS -- 9.4* Micro: No results for input(s): COVID19 in the last 72 hours. 08/23 Blood Cx: 2/2 GPC (MSSA) 08/23 Resp PCR panel: neg 08/24 Strep/Legionella Ag: neg 08/24 Sputum Cx: cancelled dt poor quality Lines: R chest TDC L AVF Radiography/Echo/Other: 08/23 CXR No acute cardiopulmonary disease. 08/23 CT chest/abd/pelvis 1. CT CHEST --- There are no definite infiltrates masses or pleural effusions Right jugular tunneled dialysis catheter, left coronary artery stent with calcified plaquing. 2. CT ABDOMEN--- There is a heterogeneous large 7.7 cm MASS right lobe liver. Aortoiliac calcified plaquing with probable punctate areas of left renal artery calcification. Question of punctate gallbladder calculi or hyperdense small areas of sludge. 3. CT PELVIS--- There is a normal appendix with no free fluid or free air. Moderate amount of stool in colon with few small scattered colonic diverticuli. Antimicrobials,Start/End Dates: Cefazolin: 08/24- present Pip-Tazo: 08/23-08/24 Vanc: 08/23 Impression: MSSA bacteremia ESRD Liver mass on CT scan T1DM Plan: Patient with MSSA bacteremia- suspect 2/2 TDC as no other known source at this time. Recommend removing TDC for line holiday. Primary team and Nephro aware. If HD needed in interim, okay to place temporary line as needed. Repeat Blood Cx ordered for tomorrow, follow for clearance. Repeat Blood Cx will need to be negative x72 hours prior to replacing tunneled line. Obtain TTE for evaluation. Continue renally-dosed Cefazolin 1g IV q24h for now. Monitor infectious parameters. ID will continue to follow. Case and plan discussed with Dr. Sue Total time 75 minutes on this day of encounter includes counseling, coordinating plan of care, record and documentation review before and after visit including documentation and time not explicitly included on EMR time stamp for accounting for open encounter. Tracy Childs [facility] [place] [facility] [place] Disease [1] Past Medical History: Diagnosis Date End stage renal failure on dialysis (HCC) Hypertension Type 1 diabetes mellitus (HCC) [2] History reviewed. No pertinent surgical history. [3] Current Facility-Administered Medications Medication Dose Route Frequency Provider Last Rate Last Admin acetaminophen (Tylenol) tablet 1,000 mg 1,000 mg Oral TID Brayan Barros, DO 1,000 mg at 08/24/24 0929 [Held by provider] amLODIPine (Norvasc) tablet 10 mg 10 mg Oral Daily Brayan Barros, DO ceFAZolin (Ancef) 1,000 mg in sodium chloride 0.9 % 50 mL IVPB 1,000 mg IntraVENous q24h Kwesi Munson MD dextrose 5 % infusion 100 mL/hr IntraVENous PRN Brayan Luz Marina, DO dextrose 50 % solution 12.5 g 12.5 g IntraVENous PRN Brayan Barros, DO glucagon (human recombinant) injection 1 mg 1 mg IntraMUSCular PRN Brayan Barros, DO glucose oral gel 15 g 15 g Oral PRN Brayan Barros, DO heparin injection 1,600 Units 1,600 Units IntraCATHeter PRN Osmel Q MD Lupe 1,600 Units at 08/23/24 2333 heparin injection 1,600 Units 1,600 Units IntraCATHeter PRN Osmel Q MD Lupe 1,600 Units at 08/23/24 2333 heparin injection 5,000 Units 5,000 Units SubCUTAneous 3 times per day Brayan Barros, DO 5,000 Units at 08/24/24 0540 Insulin Pump - (Patient Supplied) SubCUTAneous Continuous Akbar Ahmet-Angela New Bag at 08/23/24 1358 Lidocaine 4 % patch 1 patch 1 patch TransDERmal Daily PRN Brayan Luz Marina, DO 1 patch at 08/23/24 1819 [Held by provider] metoprolol succinate XL (Toprol-XL) 24 hr tablet 25 mg 25 mg Oral Daily Brayan Luz Marina, DO ondansetron ODT (Zofran-ODT) disintegrating tablet 4 mg 4 mg Oral q8h PRN Brayan Barros, DO Or ondansetron (Zofran) injection 4 mg 4 mg IntraVENous q6h PRN Brayan Luz Marina, DO 4 mg at 08/24/24 0540 pantoprazole (ProtoNix) EC tablet 40 mg 40 mg Oral qAM AC Brayan Barros, DO 40 mg at 08/24/24 0540 polyethylene glycol (PEG) 3350 (Miralax) packet 17 g 17 g Oral Daily PRN Brayan Barros, DO prochlorperazine (Compazine) tablet 10 mg 10 mg Oral q6h PRN Kwesi Munson MD Or prochlorperazine (Compazine) injection 10 mg 10 mg IntraVENous q6h PRN Kwesi Munson MD 10 mg at 08/24/24 0824 Or prochlorperazine (Compazine) suppository 25 mg 25 mg Rectal q12h PRN Kwesi Munson MD rosuvastatin (Crestor) tablet 20 mg 20 mg Oral Nightly Brayanreema Barros, DO 20 mg at 08/23/242007 [4] No Known Allergies [5] No family history on file. Cosigned by Lio Sue MD at 08/24/2024 3:43 PM EDT [facility] 08-24-2024 Nurse Note Formatting of this note might be differe nt from the original. Patients CGM reading 207 T [facility] 08-23-2024 Nurse Note Formatting of this note might be differe nt from the original. Pt.'s insulin pump reading glucose 180 [facility] 08-23-2024 Nurse Note Formatting of this note is different fro m the original. Patient Name: Farrah Gonzales Patient : 1980 Acct: [id number] Date of Admission: 08/23/2024 Room[facility]Bed: [facility] A Code Status: Full Code Allergies: Allergies[1] Diagnosis: Problem List[2] Treatment: Hemodialysis 1:1 Priority: Routine Location: Med/Surg/Tele Diabetic: Yes NPO: No Isolation Precautions: Droplet plus Consent for Treatment Verified: Yes Blood Consent Verified: Not Applicable ICEBOAT: Identify, Consent, Equipment, HepB Status, Orders Complete, Access Verified, Timeliness (O2 and suction setup at bedside) Second Clinician Verifying: Gonzales Thrasher RN Time out performed prior to access at 2009. Report Received from Primary RN at 1931. Primary RN (First Initial, Last Name, Title): Manjit Rolon RN Incapacitated Nurse Education Completed: Yes(Gonzales Thrasher RN) HBsAg ONLY: Date Drawn: August 09, 2024 Results: Negative HBsAb: Date Drawn: August 09, 2024 Results: Susceptible <10 Order Dialyzer: Nipro Na+ Modeling: Not Applicable Dialysate Temperature (C): 36 Blood Flow Rate (BFR): 400 Dialysate Flow Rate (DFR): 600 Access to be Utilized Access: Tunneled Catheter Location: Subclavian Side: Right Needle gauge: Not Applicable + Bruit/Thrill: Not Applicable First Use X-ray Verified: Present on admission OK to use line order: Yes Site Assessment: Signs and Symptoms of Infection/Inflammation: None If yes: Not Applicable Dressing: Dry and Intact Site Prep: Medical Aseptic Technique Dressing Changed this Treatment: Yes If yes, by whom: Pierre JERONIMO Date of Last Dressing Change: August 20, [address]?: No Red Alcohol Caps in place?: Yes Gauze Dressing?: Yes Non-Dialysis Use?: Yes Comment: Flows: Lines Reversed, Good, and Patent If access problem, who was notified: Pre and Post-Assessment Patient Vitals for the past 8 hrs: Level of Consciousness Oriented X Heart Rhythm Respiratory Pattern O2 Device Skin Color Skin Condition/Temp Abdomen Inspection Bowel Sounds (All Quadrants) RUE Edema LUE Edema RLE Edema LLE Edema Pre-Hemodialysis Comments Pain Interventions 08/23/241944 -- -- -- -- -- -- -- -- -- -- -- -- -- -- Repositioned 08/23/242015 Alert (0) 4 Other (Comment) -- None (Room air) [place]ill Warm;Dry -- -- None None None None Incapacitated RN and Pt education done Medication (See MAR) 08/23/242357 Alert (0) 4 Other (Comment) Other (Comment) None (Room air) [place] Warm;Dry Soft Active None None None None -- -- Labs Lab Results Component Value Date/Time WBC 20.3 (H) 08/23/2024 1300 HGB 10.4 (L) 08/23/2024 1300 HCT 29.5 (L) 08/23/2024 1300 PLT 177 08/23/2024 1300 NA 134 (L) 08/23/2024 1300 K 4.4 08/23/2024 1300 CL 99 08/23/2024 1300 CO2 20 (L) 08/23/2024 1300 BUN 59 (H) 08/23/2024 1300 CREATININE 9.57 (H) 08/23/2024 1300 CALCIUM 8.8 08/23/2024 1300 IV Drips and Rate/Dose Continuous Meds[3] Safety - Before each treatment: Dialysis Machine No.: [id number] Machine Number: [id number] Dialyzer Lot No.: [id number] Tubing Lot Number: [id number] All Connections Secure: Yes Venous Parameters Set: Yes Arterial Parameters Set: Yes NS Bag: Yes Saline Line Double Clamped: Yes Dialyzer: Nipro Prime Volume (mL): 200 mL RO Machine Number: [id number] RO Machine Log Sheet Completed: Yes Machine Alarm Self Test: Completed, Passed (At 2015) (08/23/242015) Air Foam Detector: Tested, Proper Function, pH Reading Extracorporeal Circuit Tested for Integrity: Yes Machine Conductivity: 13.8 Manual Conductivity: 13.6 Manual Ph: 7.2 Bleach Test (Neg): Yes Bath Temperature: 36 C (96.8 F) Conductivity Meter Serial #: [id number] Machine Functioning Alarm Free? Yes Dialysis Bath: K+ (Potassium): 3 Ca+ (Calcium): 2.5 Na+ (Sodium): 137 HCO3 (Bicarb): 32 Bicarbonate Concentrate Lot No.: [id number] Acid Concentrate Lot No.: [id number] Chlorine Testing - Before each treatment and every 4 hours: Time On: 2024 Time Off: 2324 Treatment Goal: 1L Weight Height: 180.3 cm (5' 11) (08/23/241030) Weight: 88.5 kg (195 lb) (08/23/241030) BMI (Calculated): 27.21 (08/23/241030) 1st check: less than 0.1 ppm at: 1999 2nd check: less than 0.1 ppm at: 2239 3rd check: Not Applicable (if greater than 0.1 ppm, then check every 30 minutes from secondary) Access Flows and Pressures Patient Vitals for the past 8 hrs: Blood Flow Rate (mL/min) Ultrafiltration Rate (ml/hr) Arterial Pressure (mmHg) Venous Pressure (mmHg) TMP DFR Access Visible Intra-Hemodialysis Comments 08/23/242024 200 mL/min 570 ml/hr -70 mmHg 40 mmHg 80 600 Yes Tx initiated, lines secured 08/23/242029 400 mL/min 570 ml/hr -160 mmHg 130 mmHg 60 600 Yes BFR increased, UF 57mL 08/23/242044 400 mL/min 570 ml/hr -160 mmHg 140 mmHg 60 600 Yes Pt tolerating tx, UF 204mL 08/23/24 2100 400 mL/min 570 ml/hr -160 mmHg 140 mmHg 70 600 Yes No adverse reaction observed, UF 332mL 08/23/24 2115 400 mL/min 570 ml/hr -160 mmHg 140 mmHg 70 600 Yes Primary RN at bedside, UF 480mL 08/23/24 2130 400 mL/min 510 ml/hr -160 mmHg 140 mmHg 70 600 Yes Pt resting, UF 616mL 08/23/24 2145 400 mL/min 510 ml/hr -160 mmHg 140 mmHg 70 600 Yes Pt tolerating tx, UF 734mL 08/23/24 2200 400 mL/min 510 ml/hr -160 mmHg 140 mmHg 60 600 Yes Pt watching tv, UF 861mL 08/23/24 2215 400 mL/min 510 ml/hr -160 mmHg 140 mmHg 60 600 Yes Bicarb jug changed, UF 977mL 08/23/24 2230 400 mL/min 450 ml/hr -170 mmHg 140 mmHg 60 600 Yes Pt tolerating tx, UF 1086mL 08/23/24 2245 400 mL/min 450 ml/hr -160 mmHg 140 mmHg 60 600 Yes Pt resting, UF 1214mL 08/23/24 2248 -- -- -- -- -- -- -- BP rechecked 08/23/24 2300 400 mL/min 440 ml/hr -160 mmHg 150 mmHg 70 600 Yes Pt vomiting, UF 1342mL 08/23/24 2315 400 mL/min 490 ml/hr -150 mmHg 150 mmHg 60 600 Yes Pt resting, UF 1429mL 08/23/24 2325 200 mL/min -- -- -- -- -- Yes Tx completed, blood returned with no difficulty Vital Signs Patient Vitals for the past 24 hrs: BP Temp Temp src Pulse Resp SpO2 Height Weight 08/23/24 2358 142/83 37.6 C (99.7 F) Temporal (!) 127 22 99 % -- -- 08/23/242324 158/74 -- -- (!) 129 -- -- -- -- 08/23/242299 (!) 163/93 -- -- (!) 136 -- -- -- -- 08/23/242247 143/76 -- -- (!) 125 -- -- -- -- 08/23/242244 129/74 -- -- (!) 127 -- -- -- -- 08/23/242229 159/75 -- -- 113 -- -- -- -- 08/23/242214 151/81 -- -- 117 -- -- -- -- 08/23/242199 (!) 175/87 -- -- 120 -- -- -- -- 08/23/242144 (!) 165/90 -- -- 117 -- -- -- -- 08/23/242129 (!) 186/97 -- -- 114 -- -- -- -- 08/23/242114 (!) 179/101 -- -- 112 -- -- -- -- 08/23/242099 (!) 180/94 -- -- 109 -- -- -- -- 08/23/242044 (!) 178/99 -- -- 107 -- -- -- -- 08/23/242029 (!) 174/83 -- -- 110 -- -- -- -- 08/23/242024 (!) 172/104 -- -- 112 -- -- -- -- 08/23/241944 (!) 163/87 37.1 C (98.7 F) Temporal 107 17 99 % -- -- 08/23/24 1624 149/87 37 C (98.6 F) Temporal 102 16 97 % -- -- 08/23/24 1031 156/82 36.4 C (97.5 F) Temporal 108 20 100 % 1.803 m (5' 11) 88.5 kg (195 lb) Post-Dialysis Arterial Catheter Locking Solution: Heparin (1000units:1ml) Volume (ml): 1600 Venous Catheter Locking Solution: Heparin (1000units:1ml) Volume (ml): 1600 Post-Treatment Procedures: Blood returned, Catheter capped, clamped and heparinized x 2 ports Machine Disinfection Process: Exterior Machine Disinfection, Acid/Vinegar Clean, Heat Disinfect Rinseback Volume (mL): 300 mL Total Liters Processed (L/min): 67.3 L/min Dialyzer Clearance: Lightly streaked Hemodialysis Intake (ml): 500 ml Hemodialysis Output (ml): 1500 ml NET Removed (ml): 1000 ml Tolerated Treatment: Good Patient Response to Treatment: tx well tolerated Physician Notified: No Patient Disposition: (Remain in room) Charge: $ IP Hemodialysis Charge: Hemodialysis Provider Notification Provider Notification Reason for Communication: Review case Provider Name: dr barros Provider Role: Attending physician Method of Communication: Secure chat Response: No new orders Notification Date: 08/23/24 Notification Time: 1825 Reason for Communication: Review case Provider Role: Attending physician Method of Communication: Secure chat Response: No new orders Notification Time: 1825 Handoff complete and report given to Primary RN at 2359. Primary RN (First Initial, Last Name, Title): Manjit Rolon RN Education Person Educated: Patient Knowledge Base: Substantial Barriers to Learning?: None Preferred method of Learning: Oral Topic(s): Access Care, Signs and Symptoms of Infection, Fluid Management, and Procedural Teaching Tools: Explanation Response to Education: Verbalized Understanding [1] No Known Allergies [2] Patient Active Problem List Diagnosis History of myocardial infarction [3] Insulin Pump - (Patient Supplied), [facility] 08-23-2024 Nurse Note Formatting of this note might be differe nt from the original. Fistula to Lfa/wrist is warm to touch, secure messaging to primary [facility] 08-23-2024 Nurse Note Formatting of this note might be differe nt from the original. Blood sugar per patients omni pod 176 T [facility] 08-23-2024 Plan of care note Formatting of this note might be differe nt from the original. Problem: Knowledge Deficit Goal: Patient/family/caregiver demonstrates understanding of disease process, treatment plan, medications, and discharge instructions 08/23/2024 164 by Mike Lopez RN Outcome: Progressing 08/23/2024 1046 by Mike Lopez RN Outcome: Progressing Problem: Potential for Compromised Skin Integrity Goal: Skin Integrity is Maintained or Improved 08/23/2024 164 by Mike Lopez RN Outcome: Progressing 08/23/2024 1046 by Mike Lopez RN Outcome: Progressing Goal: Nutritional status is improving 08/23/2024 164 by Mike Lopez RN Outcome: Progressing 08/23/2024 1046 by Mike Lopez RN Outcome: Progressing Problem: Safety - Adult Goal: Free from fall injury 08/23/2024 164 by Mike Lopez RN Outcome: Progressing 08/23/2024 1046 by Mike Lopez RN Outcome: Progressing Problem: Chronic Conditions and Co-morbidities Goal: Patient's chronic conditions and co-morbidity symptoms are monitored and maintained or improved 08/23/2024 1649 by Mike Lopez RN Outcome: Progressing 08/23/2024 1046 by Mike Lopez RN Outcome: Progressing [facility] 08-23-2024 Consult note Associated Order(s): IP CONSULT TO NEPHR ESTRELLA [facility] [id number] [place] [address] Consult Note Patient's Name: Farrah Gonzales 2:37 PM 08/23/2024 Reason for Consult: esrd ATTENDING/ADMITTING PHYSICIAN:Maria Luz Trujillo MD Assessment: 44 y.o. male with PMH of diabetes, hypertension, end-stage renal disease admitted to the hospital with sepsis. Nephrology is consulted for management of end-stage renal disease 1. End-stage renal disease on hemodialysis Friday - Last dialysis treatment on Friday 2. Volume - Patient looks euvolemic still makes urine 3. Electrolytes: - Mild hyponatremia of 134 mmol/L potassium is stable 4. Acid/base: - Serum bicarb of 20 5. MBD: - Calcium to 8.8 no phosphorus 6. Anemia: - Hemoglobin is at goal at 10.4 7. Medications: - Reviewed 8. Access: - AV fistula Plan: - Will resume his dialysis today Friday schedule - Antibiotics ongoing workup for infection per primary team Thank you for allowing me to participate in care of Farrah Gonzales. Please do not hesitate to contact me at [phone] with any concerns. Omsel Andrade MD 2:37 PM 08/23/2024 --- --- --- Chief Complaint: fever History Obtained From: patient and chart review History of Present Ilness: Farrah Gonzales is a 44 y.o. male with underlying history below who is currently being admitted to the hospital of workup for sepsis. Nephrology is consulted for management of end-stage renal disease Patient [place] [facility] [place]. His last dialysis treatment was on Friday He dialyzes via a left radial AV fistula. Patient states that he woke up on Friday feeling feverish took his temperature noted to be 103 He is currently maintained on broad-spectrum antibiotics with ongoing workup for sepsis. Patient states that he still makes urine Medical History[1] Surgical History[2] Family History[3] reports that he has never smoked. He has never used smokeless tobacco. He reports that he does not drink alcohol and does not use drugs. Allergies: Patient has no known allergies. Current Medications: Current Medications[4] Review of Systems: 10 ROS negative other than stated above Vitals: BP 156/82 (BP Location: Right arm, Patient Position: Lying) Pulse 108 Temp 36.4 C (97.5 F) (Temporal) Resp 20 Ht 1.803 m (5' 11) Wt 88.5 kg (195 lb) SpO2 100% BMI 27.20 kg/m BLOOD PRESSURE RANGE: Systolic (24hrs), Av , Min:156 , Max:156 ; Diastolic (24hrs), Av, Min:82, Max:82 Physical exam: Pleasant alert and responsive answers questions appropriately in no acute distress Normocephalic atraumatic Oromucosa slightly dry Neck is supple S1-S2 regular Breath sounds are equal bilaterally Abdomen is nontender No significant peripheral edema Left AV fistula good thrill and bruit Labs: Recent Labs 08/23/24 1300 WBC 20.3* HGB 10.4* HCT 29.5* MCV 88.3 PLT 177 Recent Labs 08/23/24 1300 NA 134* K 4.4 CL 99 CO2 20* GLUCOSE 224* BUN 59* CREATININE 9.57* Ionized Calcium: No components found for: IONCA Magnesium: No results found for: MG Phosphorus: No results found for: PHOS Uric Acid: No results found for: URICACID PT/INR: No results found for: PROTIME, INR Microalbumen/Creatinine ratio: No components found for: RUCREAT IRON: No results found for: IRON Iron Saturation: No components found for: LABIRON TIBC: No results found for: TIBC FERRITIN: No results found for: FERRITIN Input / Output: 24 HR: No intake or output data in the 24 hours ending 08/23/24 1437 IV Intake: Chery: Imaging: CT reviewed [1] Past Medical History: Diagnosis Date End stage renal failure on dialysis (HCC) Hypertension Type 1 diabetes mellitus (HCC) [2] History reviewed. No pertinent surgical history. [3] No family history on file. [4] Current Facility-Administered Medications Medication Dose Route Frequency Provider Last Rate Last Admin acetaminophen (Tylenol) tablet 1,000 mg 1,000 mg Oral TID Brayan Luz Marina, DO 1,000 mg at 08/23/24 1318 [Held by provider] amLODIPine (Norvasc) tablet 10 mg 10 mg Oral Daily Brayan Luz Marina, DO dextrose 5 % infusion 100 mL/hr IntraVENous PRN Brayan Luz Marina, DO dextrose 50 % solution 12.5 g 12.5 g IntraVENous PRN Brayan Luz Marina, DO glucagon (human recombinant) injection 1 mg 1 mg IntraMUSCular PRN Brayan Luz Marina, DO glucose oral gel 15 g 15 g Oral PRN Brayan Luz Marina, DO heparin injection 5,000 Units 5,000 Units SubCUTAneous 3 times per day Brayan Barros DO 5,000 Units at 08/23/24 1410 Insulin Pump - (Patient Supplied) SubCUTAneous Continuous Akbar Ahmet-Angela New Bag at 08/23/24 1358 [Held by provider] metoprolol succinate XL (Toprol-XL) 24 hr tablet 25 mg 25 mg Oral Daily Brayan Barros DO ondansetron ODT (Zofran-ODT) disintegrating tablet 4 mg 4 mg Oral q8h PRN Brayan Barros DO Or ondansetron (Zofran) injection 4 mg 4 mg IntraVENous q6h PRN Brayan Barros DO 4 mg at 08/23/24 1318 [START ON 08/24/2024] pantoprazole (ProtoNix) EC tablet 40 mg 40 mg Oral qAM AC Brayan Barros DO piperacillin-tazobactam (Zosyn) 2,250 mg in sodium chloride 0.9 % 50 mL IVPB Mini-Bag Plus 2,250 mg IntraVENous q6h Brayan Barros DO 16.67 mL/hr at 08/23/24 1410 2,250 mg at 08/23/24 1410 polyethylene glycol (PEG) 3350 (Miralax) packet 17 g 17 g Oral Daily PRN Brayan Barros DO rosuvastatin (Crestor) tablet 20 mg 20 mg Oral Nightly Brayan Barros DO vancomycin (Vancocin) 1750 mg in NS 500 mL IVPB (premix) 1,750 mg IntraVENous Once Brayan Barros DO vancomycin (Vancocin) intermittent dosing (placeholder) Other RX Placeholder Brayan Barros DO [employer] Phone: 08-23-2024 Consult note Formatting of this note is different fro m the original. Images from the original note were not included. Pharmacy Managed Vancomycin Dosing Service Consult Note Consult Date: 08/23/24 Patient Name: Farrah Gonzales Allergies: Patient has no known allergies. Age: 44 y.o. Sex: male Estimated body mass index is 27.2 kg/m as calculated from the following: Height as of this encounter: 1.803 m (5' 11). Weight as of this encounter: 88.5 kg (195 lb). DW: 88.5 kg Lab Results Component Value Date CREATININE 9.57 (H) 08/23/2024 BUN 59 (H) 08/23/2024 WBC 20.3 (H) 08/23/2024 Renal: [x]HD []CRRT []PD [] CrCl ml/min (Cockcroft-Gault, if ANN, no CHOREOGRAPHY DIRECTOR) Consulted By: Brayan Barros Vancomycin Level: []Trough [x]Random --> date/time future collection 4 hours post-HD, next HD currently not scheduled Infectious Diagnosis: Sepsis (target level = 15-20 mg/L) Antimicrobials: Patient recently received an antibiotic (last 12 hours) None Assessment/Plan: Intermittent vancomycin dosing (Pulse Dosing). Give Vancomycin 1750 mg x1 based on patient age, weight, renal status and infectious diagnosis (19.7 mg/kg). Will adjust dose/frequency if needed according to level. Follow renal status closely. Orders placed. Thank you for this consult. Please page/call with questions. Date: 08/23/24 Time: 1:53 PM Marlene Waller PharmD (available on [employer]) [facility] 08-23-2024 Consult note Associated Order(s): IP CONSULT TO ENDOC RINOLOGY Department of Internal Medicine Division of Endocrinology, Diabetes, & Metabolism Endocrinology Note Patient Name: Farrah Gonzales : 1980 AGE: 44 y.o. Room[facility]Bed: [facility] Admission Date: 08/23/2024 Visit Date: 08/23/2024 Reason for Endocrine Consult: Type 1 diabetes mellitus on insulin pump. Provider/Team Requesting Consult: Brayan Barros PCP: Kristal Sullivan MD Outpt Track Announcer: Yes . Jace Ko MD at outside endocrinology practice. ASSESSMENT: #1. Type 1 diabetes mellitus on insulin pump. #2. End-stage renal disease on hemodialysis with a permacath access. #3. Admitted with sepsis to determine etiology. PLAN: #1. Continue with insulin pump for now, patient does not have insulin pump supplies, so prior to August 25 need needs to be switched to basal bolus therapy. Consent signed. #2. Nurse to document blood glucose values on medical record AC and at bedtime, can take CGM data as source. #3. Check A1c ICU goal <180 GMF goal <150 POCT BG ACHS Hypoglycemia management per protocol Carb controlled diet ANTICIPATED ENDOCRINE HOME GOING RECOMMENDATIONS: Optimized for Discharge from Endocrine standpoint: No Home Going Endocrine Rx Recommendations-- On insulin pump. 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 SUBJECTIVE/HPI: CHIEF COMPLAINT: No chief complaint on file. Farrah is a 44-year-old white male who was admitted with sepsis, to determine etiology. He has a history of type 1 diabetes mellitus since age 18. He has been on an OmniPod for the last 3 years, with a [employer] G6 CGM. He uses auto mode on his pump. Insulin pump settings as follows: Basal rate 1.2 units/h Carb ratio 1 unit for every 50 g Insulin sensitivity factor I unit for every 50 above 110. Insulin active time 2.5 hours Insulin type NovoLog Total daily dose the last 3 days between 40 to 60 units. 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 He has been on hemodialysis since December 2023. Denies history of diabetic retinopathy or neuropathy. Denies history of thyroid disorder. Type of DM: 1 Onset of DM: Age 18 Home DM Medication Regimen: As above DM control (last A1c/glucose data): No results found for: HGBA1C No results found for: POCGLU Review of Systems ROS negative except for those mentioned in HPI. OBJECTIVE: Vitals: 08/23/24 1031 BP: 156/82 BP Location: Right arm Patient Position: Lying Pulse: 108 Resp: 20 Temp: 36.4 C (97.5 F) TempSrc: Temporal SpO2: 100% Weight: 195 lb (88.5 kg) Height: 5' 11 (1.803 m) Physical Exam Vitals reviewed. Constitutional: Appearance: He is ill-appearing. HENT: Mouth/Throat: Mouth: Mucous membranes are moist. Cardiovascular: Rate and Rhythm: Normal rate and regular rhythm. Pulmonary: Effort: Pulmonary effort is normal. Breath sounds: Normal breath sounds. Abdominal: General: Abdomen is flat. Bowel sounds are normal. Palpations: Abdomen is soft. Musculoskeletal: Cervical back: Neck supple. Right lower leg: No edema. Left lower leg: No edema. Skin: General: Skin is warm. Comments: Permacath R chest Neurological: General: No focal deficit present. Mental Status: He is alert and oriented to person, place, and time. Psychiatric: Mood and Affect: Mood normal. Behavior: Behavior normal. 24 hour intake/output:No intake or output data in the 24 hours ending 08/23/24 1249 Diet: Adult diet Regular; Low Sodium (2 gm); Low Potassium (Less than 3000 mg/day) Medications (as per EMR): HomeMeds: No current outpatient medications Scheduled Meds:Scheduled Meds[1] Continuous Infusions:Continuous Meds[2] PRN Meds:PRN Meds[3] Diagnostic Workup: I reviewed pertinent Laboratory results, Radiographic results, and Other Clinical Notes at the time of today's encounter. Labs: No components found for: LABA1C No components found for: EAG No results found for: NA, K, CL, CO2, BUN, CREATININE, GLUCOSE, CALCIUM No results found for: CHLPL, CHOL No results found for: TRIG No results found for: HDL No results found for: LDLCALC No results found for: VLDL No results found for: CHOLHDLRATIO No results found for: ARHC48VSA No results found for: TSH, H7UEKOT, L9TFTYL, THYROIDAB Radiology reportsas per the Radiologist Radiology: ECG 12 lead Result Date: 08/23/2024 Sinus tachycardia Consider anterior infarct Nonspecific T abnormalities, lateral leads History/Other: Past Medical History: Medical History[4] Past Surgical History: Surgical History[5] Allergy(ies): Allergies[6] Family History: Family History[7] Social History: Social History[8] Portions of the information within this encounter were entered using an electronic dictation system. Best attempts were made to edit/proofread the information prior to note completion. Despite the review of information, some errors may remain. If there are questions related to the information contained within the note please contact the signing physician directly. I spent 60 minutes with the pt which involved coordination of care, medical evaluation, review of records, and/or counseling of the pt regarding his/her condition/disease state/prognosis on the date of this note. [1] acetaminophen, 1,000 mg, Oral, TID [Held by provider] amLODIPine, 10 mg, Oral, Daily heparin, 5,000 Units, SubCUTAneous, 3 times per day insulin lispro, 0-6 Units, SubCUTAneous, TID WC And insulin lispro, 0-6 Units, SubCUTAneous, Nightly [Held by provider] metoprolol succinate XL, 25 mg, Oral, Daily [START ON 08/24/2024] pantoprazole, 40 mg, Oral, qAM AC piperacillin-tazobactam, 4,500 mg, IntraVENous, q6h rosuvastatin, 20 mg, Oral, Nightly [2] [3] PRN medications: dextrose, dextrose, glucagon (rDNA), glucose, ondansetron ODT OR ondansetron, polyethylene glycol (PEG) 3350 [4] Past Medical History: Diagnosis Date End stage renal failure on dialysis (HCC) Hypertension Type 1 diabetes mellitus (HCC) [5] History reviewed. No pertinent surgical history. [6] No Known Allergies [7] No family history on file. [8] Social History Tobacco Use Smoking status: Never Smokeless tobacco: Never Substance Use Topics Alcohol use: Never Drug use: Never [facility] 08-23-2024 History and physical note Formatting of this note is different fro m the original. Internal Medicine: Med Team Initial History and Physical Farrah Gonzales : 1980(44 y.o.) Date: August 23, 2024 TEAM: D Attending: Dr. Trujillo Subjective: Chief Complaint: Fever/Body Aches HPI Farrah Gonzales is a 44 y.o. male with PMH of T1DM, ESRD, HTN that presented [facility] on 08/23/2024 from [place] ED for diagnosis of Sepsis. In the ED, patient was found to be febrile (103), hypotensive (93/78) and tachycardic (135). Labs significant for leukocytosis 26,000, hgb 11.9, lactic 2.5, creatinine 8.87 and potassium 3.6. Urine clear and chest x-ray negative. Patient met criteria for sepsis and was subsequently treated with 1 L of fluids, Vanc and Zosyn and blood cultures were collected. Med team consulted for further workup of sepsis. On bedside evaluation, patient's vitals are now BP 156/82, R:20, P:108 satting 100 on RA. Patient reported that his symptoms started 1.5 days ago in the evening after completing his dialysis session. He noted that took his temperature after he felt feverish which prompted them to go to the ED. Patient endorses nausea, vomiting, body aches, and chest pain. He characterizes his chest pain as soreness in the epigastric area radiating to his back/shoulder blades and towards his legs. Patient also reports slight redness and itching near his port site on his chest. Patient denies any respiratory symptoms--- shortness of breath, cough or congestion but does note a runny nose for the last week. Patient denies any dysuria, urinary frequency, blood in urine, and notes normal urine output. Patient denies any diarrhea or constipation. Patient has only tried Phenergan for symptoms and has felt relief from nausea. Of note, patient reports no history of smoking, alcohol use, or illicit substance use. Review of Systems Medical History[1] Surgical History[2] Family History[3] Tobacco Use History[4] Social History Substance and Sexual Activity Alcohol Use Never Social History Substance and Sexual Activity Drug Use Never Allergies[5] Prior to Admission medications Not on File Objective: Vitals: 08/23/24 1031 BP: 156/82 BP Location: Right arm Patient Position: Lying Pulse: 108 Resp: 20 Temp: 36.4 C (97.5 F) TempSrc: Temporal SpO2: 100% Weight: 195 lb (88.5 kg) Height: 5' 11 (1.803 m) Physical Exam Constitutional: General: He is not in acute distress. Appearance: Normal appearance. He is normal weight. He is not ill-appearing or toxic-appearing. HENT: Head: Normocephalic and atraumatic. Eyes: Conjunctiva/sclera: Conjunctivae normal. Cardiovascular: Rate and Rhythm: Normal rate and regular rhythm. Pulses: Normal pulses. Heart sounds: Normal heart sounds. Pulmonary: Effort: Pulmonary effort is normal. Breath sounds: Normal breath sounds. Abdominal: General: There is no distension. Tenderness: There is no abdominal tenderness. There is no guarding. Musculoskeletal: General: No swelling or deformity. Skin: General: Skin is warm and dry. Comments: Chest port shows no surrounding erythema or tenderness Neurological: Mental Status: He is alert and oriented to person, place, and time. Psychiatric: Mood and Affect: Mood normal. Select Recent Labs BMP: No results for input(s): NA, K, CL, CO2, BUN, CREATININE, CALCIUM, MG, PHOS in the last 72 hours. LFTs: No results for input(s): AST, ALT, PROT, ALBUMIN, BILITOT, BILIRUBINU, ALKPHOS, LIPASE in the last 72 hours. Glucose: No results for input(s): GLUCOSE, POCGLU, BHYDRXBUT in the last 72 hours. Procal: No results for input(s): PROCAL in the last 72 hours. CBC: No results for input(s): WBC, HGB, HCT, PLT, MCV, RDW in the last 72 hours. ABGs: No results for input(s): PHART, EON2OEB, PO2ART, YQK6SDZ, SO2ART, H8XWRYUD in the last 72 hours. Lactic Acid: No results for input(s): LACTATE in the last 72 hours. INR: No results for input(s): INR in the last 72 hours. Cardiac Injury Profile: No results for input(s): CKTOTAL, CKMB, TROPONINI, TROPHSBASE, TROPHS2, BNP in the last 72 hours. Labs in Last 3 months: No results found for: TSH, VITD25, PSA, INR, GLUF Assessment and Plan: Active Problems: There are no active Hospital Problems. Fevers/Body Aches Sepsis, Resolved Meets SIRS criteria P: 108, Leukocytosis 26,000. S/p Fluid bolus -no current symptoms concerning for Cauda Equina Syndrome, Pyelonephritis, or Compartment Syndrome. Likely due to symptoms of fever from unknown origin. No obvious signs of infection. No tenderness or areas of erythema around port site. Monitor if sx continue to worsen. -currently on Vancomycin and Zosyn -CBC, CMP daily -Chest Xray pending -CT Chest Abd and Pelvis w/IV contrast pending -EKG pending -Lactic Acid pending -pro-calcitonin pending -UA pending -ESR, CRP -Blood cultures pending -Pneumonia PCR -Respiratory Pathogens -Resp cult and stain -Sputum Culture -Tylenol 1g TID for pain -encourage oral intake Chest Pain Hx of STEMI s/p PAXTON LAD (03/2024) Likely due to acid reflux from emesis given nature of pain but cardiac workup pending -on tele, continue to monitor -troponin pending -BNP pending -ECHO ordered -TSH ordered By chart review, on ASA alone? Working to clarify Type 1 Diabetes Last known A1c 06/15/24 8.8 -endo consulted for insulin pump management, appreciate recs -MDSS -Hypoglycemia Protocol End-Stage Renal Disease on HD Currently on transplant list for Pancreas and Kidneys Last dialysis 08/20/24 -continue to monitor labs Hypertension HLN -Hold home medication: -amlodipine 10 mg -metoprolol succinate 25 mg -continue home med, Crestor 20 mg -Daily Labs Post Rounds Addendum: -Urine Antigen: Negative -MSSA in prelim BC -Resp culture : few gram neg bacilli, and gram pos bacilli, gram positive cocci in clusters -Drug Screen Neg -ESR, CRP, Pro-Digna elevated -UA showed protein and glucose in urine -Lactic Acid, TSH, CK, Resp path panel WNL -Lipase: 78 -CT chest, abdomen and pelvis: 7.7 cm mass right lobe liver, aortoiliac calcified plaquing with probable punctate areas of left renal artery calcification Plan: MSSA bacteremia likely from port site -repeat Blood Cultures -Dc'd Vancomycin, changed zosyn to Ancef 1g -ID consulted appreciate recs T1DM: -reach out to endocrinology about auto-pump and DM management ESRD: Dialysis is M,W, F schedule Chest pain: DC tele monitoring HTN: -Restart home Amlodipine -continue to hold metoprolol Right Lobe Liver Mass: -GI consulted, awaiting recs -Lipase ordered and resulted Intractable N/V: unclear etiology, possibly r/t liver lesion? Cs HBS per GI and FLD ADAT. Could also be rt sepsis/bacteremia - Goals of Care: FULL CODE - DVT Prophylaxis: Heparin - GI Prophylaxis: Protonix daily - Diet: full liquid diet - BMI Classification: Body mass index is 27.2 kg/m . Overweight (BMI 25-29.9) - Disposition: Admit to Telemetry. - Given the signs and symptoms associated with his primary diagnosis in the setting of his comorbid conditions, he is expected to require >48 hrs of hospital care (i.e. inpatient level care). [1] Past Medical History: Diagnosis Date End stage renal failure on dialysis (HCC) Hypertension Type 1 diabetes mellitus (HCC) [2] History reviewed. No pertinent surgical history. [3] No family history on file. [4] Social History Tobacco Use Smoking Status Never Smokeless Tobacco Never [5] No Known Allergies Cosigned by Maria Luz Trujillo MD at 08/24/2024 1:58 PM EDT Associated attestation - Maria Luz Trujillo MD - 08/24/2024 1:58 PM EDT Patient seen and examined personally during bedside teaching rounds (Date of Service: 08/24/24). I agree with the findings and plan of care as documented in the resident's note. Any edits of mine to resident note are demarcated in Green. 44M, PMH T1DM (Omnipod pump and CGM), ESRD on HD via tunneled HD line, HTN, sp AVF creation, HI sp PCI to LAD Mar 2024? (On ASA alone?) who was transferred from [place] ED with sepsis. Overnight found with MSSA bacteremia. I am most suspicious for skin source given cellulitis surrounding tunneled HD line. CS ID, check TTE, repeat Bcx, narrow abx to vanco/zosyn->Ancef for now. No area of fluctuance along chest wall on my exam. During infectious ROGEL CTAP showed 7.7cm liver lesion on CT imaging for which we will cs GI. Endo following for insulin dosing with insulin pump and nephro following for HD needs. 1. Complexity of problems addressed: Bacteremia requiring IV antibiotics 3. Drug therapy requiring intensive monitoring for toxicity: Vancomycin - monitoring serum creatinine 7AM-5PM: contact resident on [facility] (find by hovering over attending's name on left side of patient's chart) 5PM-7AM: contact [address] 08-23-2024 Note Attestation with edits by Maria Luz Trujillo MD at 08/24/2024 1:58 PM Patient seen and examined personally during bedside teaching rounds (Date of Service: 08/24/24). I agree with the findings and plan of care as documented in the resident's note. Any edits of mine to resident note are demarcated in Green. 44M, PMH T1DM (Omnipod pump and CGM), ESRD on HD via tunneled HD line, HTN, sp AVF creation, HI sp PCI to LAD Mar 2024? (On ASA alone?) who was transferred from [place] ED with sepsis. Overnight found with MSSA bacteremia. I am most suspicious for skin source given cellulitis surrounding tunneled HD line. CS ID, check TTE, repeat Bcx, narrow abx to vanco/zosyn->Ancef for now. No area of fluctuance along chest wall on my exam. During infectious ROGEL CTAP showed 7.7cm liver lesion on CT imaging for which we will cs GI. Endo following for insulin dosing with insulin pump and nephro following for HD needs. 1. Complexity of problems addressed: Bacteremia requiring IV antibiotics 3. Drug therapy requiring intensive monitoring for toxicity: Vancomycin - monitoring serum creatinine 7AM-5PM: contact resident on [facility] Abdias Ricketts (find by hovering over attending's name on left side of patient's chart) 5PM-7AM: contact AI3 res Internal Medicine: Med Team Initial History and Physical Farrah Gonzales : 1980(44 y.o.) Date: August 23, 2024 TEAM: Jamarcus Attending: Dr. Trujillo Subjective: Chief Complaint: Fever/Body Aches HPI Farrah Gonzales is a 44 y.o. male with PMH of T1DM, ESRD, HTN that presented to [facility] on 08/23/2024 from [place] ED for diagnosis of Sepsis. In the ED, patient was found to be febrile (103), hypotensive (93/78) and tachycardic (135). Labs significant for leukocytosis 26,000, hgb 11.9, lactic 2.5, creatinine 8.87 and potassium 3.6. Urine clear and chest x-ray negative. Patient met criteria for sepsis and was subsequently treated with 1 L of fluids, Vanc and Zosyn and blood cultures were collected. Med team consulted for further workup of sepsis. On bedside evaluation, patient's vitals are now BP 156/82, R:20, P:108 satting 100 on RA. Patient reported that his symptoms started 1.5 days ago in the evening after completing his dialysis session. He noted that took his temperature after he felt feverish which prompted them to go to the ED. Patient endorses nausea, vomiting, body aches, and chest pain. He characterizes his chest pain as soreness in the epigastric area radiating to his back/shoulder blades and towards his legs. Patient also reports slight redness and itching near his port site on his chest. Patient denies any respiratory symptoms--- shortness of breath, cough or congestion but does note a runny nose for the last week. Patient denies any dysuria, urinary frequency, blood in urine, and notes normal urine output. Patient denies any diarrhea or constipation. Patient has only tried Phenergan for symptoms and has felt relief from nausea. Of note, patient reports no history of smoking, alcohol use, or illicit substance use. Review of Systems Medical History[1] Surgical History[2] Family History[3] Tobacco Use History[4] Social History Substance and Sexual Activity Alcohol Use Never Social History Substance and Sexual Activity Drug Use Never Allergies[5] Prior to Admission medications Not on File Objective: Vitals: 08/23/24 1031 BP: 156/82 BP Location: Right arm Patient Position: Lying Pulse: 108 Resp: 20 Temp: 36.4 ?C (97.5 ?F) TempSrc: Temporal SpO2: 100% Weight: 195 lb (88.5 kg) Height: 5' 11 (1.803 m) Physical Exam Constitutional: General: He is not in acute distress. Appearance: Normal appearance. He is normal weight. He is not ill-appearing or toxic-appearing. HENT: Head: Normocephalic and atraumatic. Eyes: Conjunctiva/sclera: Conjunctivae normal. Cardiovascular: Rate and Rhythm: Normal rate and regular rhythm. Pulses: Normal pulses. Heart sounds: Normal heart sounds. Pulmonary: Effort: Pulmonary effort is normal. Breath sounds: Normal breath sounds. Abdominal: General: There is no distension. Tenderness: There is no abdominal tenderness. There is no guarding. Musculoskeletal: General: No swelling or deformity. Skin: General: Skin is warm and dry. Comments: Chest port shows no surrounding erythema or tenderness Neurological: Mental Status: He is alert and oriented to person, place, and time. Psychiatric: Mood and Affect: Mood normal. Select Recent Labs BMP: No results for input(s): NA, K, CL, CO2, BUN, CREATININE, CALCIUM, MG, PHOS in the last 72 hours. LFTs: No results for input(s): AST, ALT, PROT, ALBUMIN, BILITOT, BILIRUBINU, (more content not included)... [facility] 08-23-2024 History and physical note Formatting of this note is different fro m the original. Internal Medicine: Med Team Initial History and Physical Farrah Gonzales : 1980(44 y.o.) Date: August 23, 2024 TEAM: Jamarcus Attending: Dr. Trujillo Subjective: Chief Complaint: Fever/Body Aches HPI Farrah Gonzales is a 44 y.o. male with PMH of T1DM, ESRD, HTN that presented to [facility] on 08/23/2024 from [place] ED for diagnosis of Sepsis. In the ED, patient was found to be febrile (103), hypotensive (93/78) and tachycardic (135). Labs significant for leukocytosis 26,000, hgb 11.9, lactic 2.5, creatinine 8.87 and potassium 3.6. Urine clear and chest x-ray negative. Patient met criteria for sepsis and was subsequently treated with 1 L of fluids, Vanc and Zosyn and blood cultures were collected. Med team consulted for further workup of sepsis. On bedside evaluation, patient's vitals are now BP 156/82, R:20, P:108 satting 100 on RA. Patient reported that his symptoms started 1.5 days ago in the evening after completing his dialysis session. He noted that took his temperature after he felt feverish which prompted them to go to the ED. Patient endorses nausea, vomiting, body aches, and chest pain. He characterizes his chest pain as soreness in the epigastric area radiating to his back/shoulder blades and towards his legs. Patient also reports slight redness and itching near his port site on his chest. Patient denies any respiratory symptoms--- shortness of breath, cough or congestion but does note a runny nose for the last week. Patient denies any dysuria, urinary frequency, blood in urine, and notes normal urine output. Patient denies any diarrhea or constipation. Patient has only tried Phenergan for symptoms and has felt relief from nausea. Of note, patient reports no history of smoking, alcohol use, or illicit substance use. Review of Systems Medical History[1] Surgical History[2] Family History[3] Tobacco Use History[4] Social History Substance and Sexual Activity Alcohol Use Never Social History Substance and Sexual Activity Drug Use Never Allergies[5] Prior to Admission medications Not on File Objective: Vitals: 08/23/24 1031 BP: 156/82 BP Location: Right arm Patient Position: Lying Pulse: 108 Resp: 20 Temp: 36.4 C (97.5 F) TempSrc: Temporal SpO2: 100% Weight: 195 lb (88.5 kg) Height: 5' 11 (1.803 m) Physical Exam Constitutional: General: He is not in acute distress. Appearance: Normal appearance. He is normal weight. He is not ill-appearing or toxic-appearing. HENT: Head: Normocephalic and atraumatic. Eyes: Conjunctiva/sclera: Conjunctivae normal. Cardiovascular: Rate and Rhythm: Normal rate and regular rhythm. Pulses: Normal pulses. Heart sounds: Normal heart sounds. Pulmonary: Effort: Pulmonary effort is normal. Breath sounds: Normal breath sounds. Abdominal: General: There is no distension. Tenderness: There is no abdominal tenderness. There is no guarding. Musculoskeletal: General: No swelling or deformity. Skin: General: Skin is warm and dry. Comments: Chest port shows no surrounding erythema or tenderness Neurological: Mental Status: He is alert and oriented to person, place, and time. Psychiatric: Mood and Affect: Mood normal. Select Recent Labs BMP: No results for input(s): NA, K, CL, CO2, BUN, CREATININE, CALCIUM, MG, PHOS in the last 72 hours. LFTs: No results for input(s): AST, ALT, PROT, ALBUMIN, BILITOT, BILIRUBINU, ALKPHOS, LIPASE in the last 72 hours. Glucose: No results for input(s): GLUCOSE, POCGLU, BHYDRXBUT in the last 72 hours. Procal: No results for input(s): PROCAL in the last 72 hours. CBC: No results for input(s): WBC, HGB, HCT, PLT, MCV, RDW in the last 72 hours. ABGs: No results for input(s): PHART, EAE0ULL, PO2ART, NFO2OPF, SO2ART, Y4FCWDYY in the last 72 hours. Lactic Acid: No results for input(s): LACTATE in the last 72 hours. INR: No results for input(s): INR in the last 72 hours. Cardiac Injury Profile: No results for input(s): CKTOTAL, CKMB, TROPONINI, TROPHSBASE, TROPHS2, BNP in the last 72 hours. Labs in Last 3 months: No results found for: TSH, VITD25, PSA, INR, GLUF Assessment and Plan: Active Problems: There are no active Hospital Problems. Fevers/Body Aches Sepsis, Resolved Meets SIRS criteria P: 108, Leukocytosis 26,000. S/p Fluid bolus -no current symptoms concerning for Cauda Equina Syndrome, Pyelonephritis, or Compartment Syndrome. Likely due to symptoms of fever from unknown origin. No obvious signs of infection. No tenderness or areas of erythema around port site. Monitor if sx continue to worsen. -currently on Vancomycin and Zosyn -CBC, CMP daily -Chest Xray pending -CT Chest Abd and Pelvis w/IV contrast pending -EKG pending -Lactic Acid pending -pro-calcitonin pending -UA pending -ESR, CRP -Blood cultures pending -Pneumonia PCR -Respiratory Pathogens -Resp cult and stain -Sputum Culture -Tylenol 1g TID for pain -encourage oral intake Chest Pain Hx of STEMI s/p PAXTON LAD (03/2024) Likely due to acid reflux from emesis given nature of pain but cardiac workup pending -on tele, continue to monitor -troponin pending -BNP pending -ECHO ordered -TSH ordered By chart review, on ASA alone? Working to clarify Type 1 Diabetes Last known A1c 06/15/24 8.8 -endo consulted for insulin pump management, appreciate recs -MDSS -Hypoglycemia Protocol End-Stage Renal Disease on HD Currently on transplant list for Pancreas and Kidneys Last dialysis 08/20/24 -continue to monitor labs Hypertension HLN -Hold home medication: -amlodipine 10 mg -metoprolol succinate 25 mg -continue home med, Crestor 20 mg -Daily Labs Post Rounds Addendum: -Urine Antigen: Negative -MSSA in prelim BC -Resp culture : few gram neg bacilli, and gram pos bacilli, gram positive cocci in clusters -Drug Screen Neg -ESR, CRP, Pro-Digna elevated -UA showed protein and glucose in urine -Lactic Acid, TSH, CK, Resp path panel WNL -Lipase: 78 -CT chest, abdomen and pelvis: 7.7 cm mass right lobe liver, aortoiliac calcified plaquing with probable punctate areas of left renal artery calcification Plan: MSSA bacteremia likely from port site -repeat Blood Cultures -Dc'd Vancomycin, changed zosyn to Ancef 1g -ID consulted appreciate recs T1DM: -reach out to endocrinology about auto-pump and DM management ESRD: Dialysis is M,W, F schedule Chest pain: DC tele monitoring HTN: -Restart home Amlodipine -continue to hold metoprolol Right Lobe Liver Mass: -GI consulted, awaiting recs -Lipase ordered and resulted Intractable N/V: unclear etiology, possibly r/t liver lesion? Cs HBS per GI and FLD ADAT. Could also be rt sepsis/bacteremia - Goals of Care: FULL CODE - DVT Prophylaxis: Heparin - GI Prophylaxis: Protonix daily - Diet: full liquid diet - BMI Classification: Body mass index is 27.2 kg/m . Overweight (BMI 25-29.9) - Disposition: Admit to Telemetry. - Given the signs and symptoms associated with his primary diagnosis in the setting of his comorbid conditions, he is expected to require >48 hrs of hospital care (i.e. inpatient level care). [1] Past Medical History: Diagnosis Date End stage renal failure on dialysis (HCC) Hypertension Type 1 diabetes mellitus (HCC) [2] History reviewed. No pertinent surgical history. [3] No family history on file. [4] Social History Tobacco Use Smoking Status Never Smokeless Tobacco Never [5] No Known Allergies Cosigned by Maria Luz Trujillo MD at 08/24/2024 1:58 PM EDT Associated attestation - Maria Luz Trujillo MD - 08/24/2024 1:58 PM EDT Patient seen and examined personally during bedside teaching rounds (Date of Service: 08/24/24). I agree with the findings and plan of care as documented in the resident's note. Any edits of mine to resident note are demarcated in Green. 44M, PMH T1DM (Omnipod pump and CGM), ESRD on HD via tunneled HD line, HTN, sp AVF creation, HI sp PCI to LAD Mar 2024? (On ASA alone?) who was transferred from [place] ED with sepsis. Overnight found with MSSA bacteremia. I am most suspicious for skin source given cellulitis surrounding tunneled HD line. CS ID, check TTE, repeat Bcx, narrow abx to vanco/zosyn->Ancef for now. No area of fluctuance along chest wall on my exam. During infectious ROGEL CTAP showed 7.7cm liver lesion on CT imaging for which we will cs GI. Endo following for insulin dosing with insulin pump and nephro following for HD needs. 1. Complexity of problems addressed: Bacteremia requiring IV antibiotics 3. Drug therapy requiring intensive monitoring for toxicity: Vancomycin - monitoring serum creatinine 7AM-5PM: contact resident on [facility] (find by hovering over attending's name on left side of patient's chart) 5PM-7AM: contact AI3 res documented in this encounter [facility] 08-23-2024 Plan of care note Formatting of this note might be differe nt from the original. Problem: Knowledge Deficit Goal: Patient/family/caregiver demonstrates understanding of disease process, treatment plan, medications, and discharge instructions Outcome: Progressing Problem: Potential for Compromised Skin Integrity Goal: Skin Integrity is Maintained or Improved Outcome: Progressing Goal: Nutritional status is improving Outcome: Progressing Problem: Safety - Adult Goal: Free from fall injury Outcome: Progressing Problem: Chronic Conditions and Co-morbidities Goal: Patient's chronic conditions and co-morbidity symptoms are monitored and maintained or improved Outcome: Progressing [facility] 08-23-2024 Discharge summary [facility] 08-23-2024 Radiology Diagnostic study note [facility] Imaging Services [address] [place], [place] [address] Chest 1 View (Portable) MR#: [id number] Acct: [id number] Name: LAURIE GONZALES Rep #: [id number] : 1980 M 44 From: Herminio Allison MD PCP: Dr. Kristal Sullivan MD Status: REG E R Study:Chest 1 View (Portable) Date of Exam: 08/23/24 Exam# [id number] Ordering Dr: Jamarcus Elizalde DO PROCEDURE: CHEST 1 VIEW (PORTABLE) 08/23/2024 REASON FOR EXAM: FEVER TECHNIQUE: Frontal view of the chest. AP portable COMPARISON: 08/10/2024 FINDINGS: Right-sided dialysis catheter. The lungs appear clear. Pulmonary vascularity appears within limits. No evidence of pleural effusion. The cardiac and mediastinal contours appear within limits. Visualized osseous structures appear within limits. RAD/Chest 1 View (Portable) IMPRESSION: No evidence of acute disease. Reading Location: [facility] CC: Dr. Kristal Sullivan MD; Dr. Laurie Elizalde DO ~ Imcu Specialist: Signed [facility] 08-17-2024 Progress note [facility] 08-17-2024 Progress note Note Date/Time August 17, 2024 3:22pm [facility] [address] [place] [address] OFFICE VISIT Date of Service: 08/17/24 MR#: [id number] Acct: [id number] Name: LAURIE GONZALES Rep #: [id number] : 1980 Provider: RAVINDER Payne Age/Sex: 44/M Location: [facility] [place] Status: Signed Intake Vital Signs 08/11/24 14:02 08/17/24 14:47 Height 5 ft 11 in 5 ft 11 in Weight: 191 lb 2 oz BMI 26.6 BP 123/88 H Respiration 18 Pulse 98 Pulse Oximetry (%) 98 Oxygen Delivery Method room air Intake Visit Reasons: SWALLOWED FOOD GETS STUCK Chief Complaint: pain with swallowing Clamper Required: No Accompanied by: Self Is patient in pain?: No Allergies No Known Allergies Allergy (Verified 08/17/24 14:42) Medications ?Medication ?Instructions ?Recorded ?Confirmed ?Type blood sugar diagnostic (FreeStyle #100 ea 10/08/2111/22 Rx Lite Strips) lancing device with lancets kit #100 ea 11/26/2108/05 Rx (Docphinuch Delica Plus Lancing Device kit) pen needle, diabetic 32 gauge x #150 ea 02/26/2208/05 Rx 5/32 (BD Ultra-Fine Carol Pen Needle) aspirin 81 mg tablet,delayed 81 mg PO BREAKFAST #90 ta bs 02/25/24 08/17/24 Rx release clopidogrel 75 mg tablet 75 mg PO DAILY #90 tabs 01/3008/17/24 Rx insulin aspart U-100 100 unit/mL 80 unit (0.8 mL) cont inuous 02/25/24 08/17/24 Rx subcutaneous solution (Novolog subcutaneous infusion . continuous U-100 Insulin aspart) #72 mL metoprolol succinate 25 mg 25 mg PO DAILY #90 tabs 08/17/24 Rx tablet,extended release 24 hr rosuvastatin 10 mg tablet 10 mg PO DAILY #90 tabs 01/3008/17/24 Rx insulin syringe-needle U-100 0.3 #100 ea 03/30/24 05/0 11/22 Rx mL 31 gauge x 5/16 (BD Insulin Syringe Ultra-Fine) pen needle, diabetic 32 gauge x #50 ea 03/30/24 Rx 5/32 (BD Ultra-Fine Carol Pen Needle) blood-glucose,grain merchandising manager,cont #1 ea 04/01/24 08/11/24 Rx (Dexcom G6 Paper Coating Machine Operator) insulin pump cart,auto,BT,G6/7 #30 ea 04/01/24 5 Rx (Omnipod 5 G6-G7 Pods (Gen 5) subcutaneous cartridge) sevelamer carbonate 800 mg tablet 800 mg PO DAILY 05/3008/17/24 History blood-glucose sensor (Dexcom G6 #9 ea 07/23/24 5 Rx Sensor device) blood-glucose transmitter (Dexcom #1 ea 07/23/2408/05 Rx G6 Transmitter device) cholecalciferol (vitamin D3) 50 150 mcg PO MOWEFR 07/0108/17/24 History mcg (2,000 unit) capsule loratadine 5 mg-pseudoephedrine ER 1 tab PO Q12H 08/0508/17/24 History 120 mg tablet,extended release,12hr (Claritin-D 12 Hour) amlodipine 5 mg tablet 10 mg (2 x 5 mg) PO DAILY #9 0 tabs 08/11/24 08/17/24 Rx pantoprazole 40 mg tablet,delayed 40 mg PO QDAY #90 ta bs 08/17/24 08/17/24 Rx release sucralfate 100 mg/mL oral 10 ml PO QACHS #1,200 mL 08/17/24 Rx suspension (Carafate) Nurse's Note: When he swallows food it feels like food gets stuck in his mid to lower esophagus and the pain radiates from the chest to the back. [facility] Medical History Elevated troponin Insulin dependent diabetes mellitus Diabetes History of renal dialysis History of renal disease Back pain Injury of back Dietary restriction Gastric reflux Non-smoker Leg cramps Cardiology follow-up encounter History of echocardiogram History of heart attack Acute non-ST elevation myocardial infarction (NSTEMI) CKD (chronic kidney disease), stage V Congestive heart failure of unknown etiology Overweight (BMI 25.0-29.9) NSTEMI, initial episode of care Acute kidney injury superimposed on chronic kidney disease Elevated troponin Pre-op testing ESRF (end stage renal failure) Stage 4 chronic kidney disease Diabetes mellitus type 1 Insulin pump titration Presence of insulin pump CKD (chronic kidney disease) Hypertension Obesity Abscess Charcot foot due to diabetes mellitus Type 1 diabetes mellitus Acute kidney injury DKA (diabetic ketoacidoses) DM type 1 (diabetes mellitus, type 1) Surgical History History of cardiac catheterization History of heart surgery Hx of surgical procedure History of coronary artery stent placement History of surgery on lower extremity Family History Mother Diabetes Thyroid disorder Grandmother Diabetes Grandfather Diabetes Social History Smoking Status: Never smoker alcohol intake: never substance use type: does not use HPI HPI Chief Complaint: pain with swallowing Details: LAURIE GONZALES, is a 44 M who presents to the office today for HD - M/W/F - renal failure due to DM and HTN - 1st episode was after HD a week ago for crushing chest pain and intractable emesis - Friday when to ED for crushing chest pain - ACS ruled out and treated with phenergan and GI coktail - reports symptoms resolved during admission - ate a cheeseburger before discharge without issue - the day following admission he developed - water going down ok - unable to take fluid off in HD due to dry weight is too low - liquids and solids - HB - intermittent ROS Const Constitutional: Positive for fatigue and weight change (loss); No fever(s) ENT ENT: Positive for difficulty swallowing Gastro GI: Positive for abdominal pain, heartburn, difficulty swallowing, nausea/dyspepsia and vomiting; No belching, bloating, change in bowel habits, change in stool character, coffeeground emesis, constipation, cramping, diarrhea, feeling full early, excessive flatus, incontinent of stools, Vomiting blood/hematemesis, Blood in stool, loosestools, Black,tarry stools, pain with swallowing or other Musc Musculoskeletal: Positive for back pain and muscle weakness; No joint pain Skin Skin: Positive for dry skin and itchy eyes; No yellowing of the eye Psych Psychiatric: No anxiety and No depression Endo Endocrine: Positive for fatigue and weight change (loss) Aller/Imm Allergy/Immunologic: Positive for itchy eyes Mc/Lymp Hematologic/Lymphatic: No easy bleeding or easy bruising Exam Const General: cooperative, healthy appearing, no acute distress and well developed Nutritional Appearance: average body habitus and well nourished Orientation: alert and oriented x3 Other: Right chest HD cath [facility] Head: normocephalic Ears: hearing grossly normal bilaterally Mouth: moist mucous membranes Teeth and gingiva: dentition normal Eyes Conjunctivae: conjunctivae normal Sclera: sclerae normal Neck Neck: normal visual inspection, full ROM and trachea midline Resp Effort & Inspection: normal respiratory effort, able to speak in complete sentences and symmetric chest movement Auscultation: Bilateral: Clear to Auscultation GI Inspection: normal to inspection Auscultation: normal bowel sounds Palpation: soft and no hepatosplenomegaly Rectal Exam: deferred Skin General: no rashes or lesions noted and turgor normal Neuro General: patient alert and patient oriented x3 Cranial Nerves: other (CN's grossly intact, non-focal exam) Cognition: normal cognition Speech: speech normal Gait: normal gait Extrem General: normal to inspection (no edema noted) Psych Appearance: grossly normal and well kempt Affect: normal affect Attitude: cooperative Thought Process: normal Assessment and Plan Assessment and Plan (1) Dysphagia: Status: Acute (2) Odynophagia: Status: Acute Orders: Orders Esophagus Dual Contrast Today R13.10 - Dysphagia, unspecified Medications: New sucralfate (Carafate) 10 mL PO QACHS 1,200 mL 1RF pantoprazole take once every morning on an empty stomach 40 mg PO QDAY 90 tabs 1RF Plan 44-year-old male presents for initial consultation with complaints of dysphagia and odynophagia. Symptoms began 1 week ago post dialysis with crushing chest pain and intractable emesis. He presented to the emergency department the following day with ongoing symptoms, ACS ruled out and symptoms resolved with Phenergan and GI cocktail. He reports he was able to eat a burger prior to discharge without issue. 1 day following discharge he developed sudden onset dysphagia and odynophagia in the upper mid esophagus with liquids and solids. He reports a 10 to 20 pound weight loss in the past week, and is running even ondialysis. I have started him on a daily PPI and sucralfate. I have also ordered an esophagram and EGD. He will follow-up in the office post procedures. He takes Plavix and will require approval to hold prior to EGD. Note: [email or web address] speech recognition audiovisual production specialist software was used to create portions of this document. Sound-alike and misspelled words, as well as other audiovisual production specialist errors may be contained in the documentation. Patient Instructions: Esophagram EGD Coding Level of Care Code Off vis,new,level 4 Diagnoses Dysphagia R13.10 Odynophagia R13.10 Clinical Quality Measures Smoking Screening Smoking Status: Never smoker 08/17/24 1522 <Electronically signed by Kalina CASTELLON> Date _ Kalina CASTELLON Cosigner Signature: Date (if applicable) CC: ~ [facility] Work Phone: 1(910) 479-419105-14-2025 Discharge summary Author Louis Koehler [facility] Note Date/Time August 11, 2024 2:35p [facility] Medical Records Department [address] [place] [address] Instructions for Home/Discharge Instructions 08/11/24 1429 MR#: [id number] Acct: [id number] Name: LAURIE GONZALES Rep #:[id number] : 1980 44 From: Louis Ricketts PCP: Dr. Kristal Sullivan MD Status:ADM I NO Discharge Instructions Diet Discharge Diet: Low fat / Low cholesterol, 1800 Calorie Control Diet and 2000 mgSodium Diet DC O2, CPAP, BIPAP needs Home O2 Discharge instructions: No Dressing / Incision Discharge Activity: Return to Normal Activity Weight Bearing Status: Weight bearing as tolerated Dressing / Incision Call your doctor if you observe: Fever of 101 or Higher, Coldness, Increased Pain, Numbness or Tingling, Change in Color, Inability to urinate, Inability to have a bowel movement, Shortness of breath, Dizziness, Fainting spells, Swellingin the ankles, Chest pain, Prolonged hiccupping, Increased palpitations (irregular heartbeat) and Calf discomfort Follow Up Care When: IN 2 WEEKS Test Results: Test results from this visit will be discussed in further detail at your follow- up appointment, if applicable. Discharge Plan Admission Admit Date/Time: 08/10/24 23:09 Primary Reason for Your Visit: Atypical chest pain. ACS ruled out Attending Provider: Louis Koehler Primary Care Provider: Kristal Sullivan Consulting Providers: Eugenia London; Daisy Diaz Discharge Orders/Prescriptions Prescriptions: Continued (DME) FreeStyle Lite Strips Strip See Rx Instructions .Route Qty: 100 6RF Rx Instructions: 3x/day clopidogrel 75 mg tablet 75 mg PO DAILY Qty: 90 3RF metoprolol succinate 25 mg tablet extended release 24 hr 25 mg PO DAILY Qty: 90 3RF aspirin 81 mg tablet,delayed release (DR/EC) 81 mg PO BREAKFAST Qty: 90 3RF insulin aspart U-100 [Novolog U-100 Insulin aspart] 100 unit/mL solution 80 unit continuous subcutaneous infusion .continuous Qty: 72 1RF rosuvastatin 10 mg tablet 10 mg PO DAILY Qty: 90 1RF cholecalciferol (vitamin D3) 50 mcg (2,000 unit) capsule 150 mcg PO MOWEFR sevelamer carbonate 800 mg tablet 800 mg PO DAILY Rx Instructions: must administer with a meal/food Claritin-D 12 Hour 5-120 mg tablet extended release 12 hr 1 tab PO Q12H (DME) lancing device with lancets [INCIDE [employer] Plus Lanc Dev] Kit See Rx Instructions .Route Qty: 100 1RF Rx Instructions: 4x/day (DME) pen needle, diabetic [BD Ultra-Fine Carol Pen Needle] 32 gauge x 5/32 needle See Rx Instructions .ROUTE .MEDSUPPLY Qty: 150 5RF Rx Instructions: 4 times daily (DME) pen needle, diabetic [BD Ultra-Fine Carol Pen Needle] 32 gauge x 5/32 needle See Rx Instructions .ROUTE .MEDSUPPLY Qty: 50 0RF Rx Instructions: daily (DME) insulin syringe-needle U-100 [BD Insulin Syringe Ultra-Fine] 0.3 mL 31 gauge x 5/16 syringe See Rx Instructions .Route Qty: 100 1RF Rx Instructions: tid (DME) Dexcom G6 Paper Coating Machine Operator Misc See Rx Instructions .Route Qty: 1 0RF Rx Instructions: As directed (DME) Omnipod 5 G6-G7 Pods (Gen 5) Cartridge See Rx Instructions .Route Qty: 30 1RF Rx Instructions: change every 3 days (DME) Dexcom G6 Sensor Device See Rx Instructions .Route Qty: 9 1RF Rx Instructions: 1 sensor q 10 days (DME) Dexcom G6 Transmitter Device See Rx Instructions .Route Qty: 1 1RF Rx Instructions: 1 q 90 days Changed amlodipine 5 mg tablet 10 mg PO DAILY Qty: 90 3RF Referrals / Follow Up: Kristal Sullivan MD [Primary Care Provider] - Self,Naila Tan [Emergency Nurse] - Daisy Diaz MD [Med Staff - Consulting] - Within 1 Month Disposition Disposition (needs filled in before D/C Order can be placed): Home, Self Care 08/11/24 9545<Electronically signed by Louis Koehler MD>Louis Koehler MD CC: Dr. Kristal Sullivan MD; Dr. Daisy Diaz MD; Dr. Eugenia London, DO ~ Signed [facility] Work Phone: [phone]) 520-383005-14-2025 Consult note [facility] Medical Records Department [address] [place], [place] [address] [address] Counseling Note - Pharmacy 08/11/24 1516 MR#: [id number] Acct: [id number] Name: LAURIE GONZALES Rep #:[id number] : 1980 44 From: Ira Singh PCP: Dr. Kristal Sullivan MD Status:ADM I NO Y Location: [place] [address] [place] Med Reconciliation Pharmacy Service has performed discharge medication reconciliation for this patient. The patient's discharge medication list was reviewed for discrepancies and discrepancies were resolved. Medications at Discharge Home Medications blood sugar diagnostic (FreeStyle Lite Strips) #100 ea 10/08/21 lancing device with lancets kit ([employer] Delica Plus Lancing Device kit) #100 ea 11/26/21 pen needle, diabetic 32 gauge x 5/32 (BD Ultra-Fine Carol Pen Needle) #150 ea 02/26/22 aspirin 81 mg tablet,delayed release 81 mg PO BREAKFAST #90 tabs 02/25/24 clopidogrel 75 mg tablet 75 mg PO DAILY #90 tabs 02/25/24 insulin aspart U-100 100 unit/mL subcutaneous solution (Novolog U-100 Insulin aspart) 80 unit (0.8 mL) continuous subcutaneous infusion .continuous #72 mL 02/25/24 metoprolol succinate 25 mg tablet,extended release 24 hr 25 mg PO DAILY #90 tabs104/26/23 rosuvastatin 10 mg tablet 10 mg PO DAILY #90 tabs 02/25/24 insulin syringe-needle U-100 0.3 mL 31 gauge x 5/16 (BD Insulin Syringe Ultra- Fine) #100 ea 03/30/24 pen needle, diabetic 32 gauge x 5/32 (BD Ultra-Fine Carol Pen Needle) #50 ea 03/30/24 blood-glucose meter,continuous (Dexcom G6 Paper Coating Machine Operator) #1 ea 04/01/24 insulin pump cart,auto,BT,G6/7 (Omnipod 5 G6-G7 Pods (Gen 5) subcutaneous cartridge) #30 ea 04/01/24 sevelamer carbonate 800 mg tablet 800 mg PO DAILY 06/18/24 blood-glucose sensor (Dexcom G6 Sensor device) #9 ea 07/23/24 blood-glucose transmitter (Dexcom G6 Transmitter device) #1 ea 07/23/24 cholecalciferol (vitamin D3) 50 mcg (2,000 unit) capsule 150 mcg PO MOWEFR 07/28/24 loratadine 5 mg-pseudoephedrine ER 120 mg tablet,extended release,12hr (Claritin-D 12 Hour) 1 tab PO Q12H 08/05/24 amlodipine 5 mg tablet 10 mg (2 x 5 mg) PO DAILY #90 tabs 08/11/24 08/11/24 1516 Date _ Ira Rodriguez Signature (if applicable): Date CC: ~ Signed [facility]05-14-2025 Discharge summary [facility] Medical Records Department [address] [place] [address] Discharge Summary 08/11/24 1440 MR#: [id number] Acct: [id number] Name: LAURIE GONZALES Rep #:[id number] : 1980 44 From: Louis Ricketts PCP: Dr. Kristal Sullivan MD Status:ADM I NO Location: [place] [address]- 1 Providers Date of Admission: 08/10/24 Date of Discharge: 08/11/24 Primary Care Physician: Dr. Kristal Sullivan MD Consultations 08/11/24 00:26 Consult: Nephrology Routine Consulting Provider: Daisy Diaz Reason for Consult: ESRD-HD dependent EMERGENT Consult: No MD Notified: Yes Date Notified: 08/10/24 Time Notified: 23:16 Method of Notification: Answering Service Reason For Visit: CHEST PAIN Diagnosis Discharge Diagnosis (1) Chest pain: Status: Acute Code(s): R07.9 - Chest pain, unspecified (2) Dyspepsia: Status: Acute Code(s): R10.13 - Epigastric pain (3) Elevated troponin: Status: Acute Code(s): R79.89 - Other specified abnormal findings of blood chemistry Plan This is 44-year-old gentleman was admitted with chest pain started after dialysis around 6 PM. Chest pain started back and then moved to the front sharpin nature along with nausea. Last HI in December2023 that required stent in LAD. By the time patient came to ED chest pain had subsided. Denies family history of HI at young age 3. ACS ruled out. Patient is being admitted in PCU. Troponins have elevated 211, 193, 208, flat andindeterminant. Twelve-lead EKG shows sinus tachycardia 100/min, no ST-T changes, isolated T wave inversion in aVL. QTc 497 ms. Chest x- ray shows no acute process. CTA chest no PE or dissection. Repeat EKG shows sinus tachycardia 119 bpm, PAC, bifascicular block, RBBB and LAFB. ED physiciandiscussedwith dry kiln loader Dr. Lio Cross and he reviewed his previous cardiac cath in December 2023 which showed small vessel disease not amenable to intervention. Pharmacological stress test was done which she reported preservedEF, previous anterior infarct with mild ede-infarct infix ischemia. Discussed with the dry kiln loader Dr. Garcia who reported that stress and he said patient cango home. No acute HI. Patient is being discharged. 2. Essential hypertension: Blood pressure is not controlled. Systolic in 170s. IV hydralazine and IV labetalol ordered. Patient is discharged and advised follow with PCP 3. Chest CTA shows 6.5 x 4 cm heterogeneously enhancing right hepatic lobe massnutrition diagnosis hemangioma. Advised follow-up with PCP for triple phage CT scan or MRI for further diagnosi. Outpatient follow-up s 4. End-stage renal disease: On Friday. Patient is being dialyzed today. [employer] Repairer consulted. On sevelamer 5. History of chronic anemia secondary to renal disease: Hemoglobin similar to baseline 13.6/39%. Repeat H&H 12.1/34.8% 6. DM type I- Continue insulin pump: Patient states he is on the transplant list for kidney and pancreas transplant. Electrolytes in the settable limit. Bicarb 21. Anion gap elevated 27 but anion gapand bicarb may be lab error because of problem in lab analyzer. A1c 7.2%. 7. Other comorbidities include secondary hyperparathyroidism related to ESRD, CAD, dyslipidemia andvitamin D deficiency: DVT prophylaxis - Subcu heparin 3 times daily CODE STATUS - Full code Medications at Discharge Home Medications blood sugar diagnostic (FreeStyle Lite Strips) #100 ea 10/08/21 lancing device with lancets kit ([employer] Plus Lancing Device kit) #100 ea 11/26/21 pen needle, diabetic 32 gauge x 5/32 (BD Ultra-Fine Carol Pen Needle) #150 ea 02/26/22 aspirin 81 mg tablet,delayed release 81 mg PO BREAKFAST #90 tabs 02/25/24 clopidogrel 75 mg tablet 75 mg PO DAILY #90 tabs 02/25/24 insulin aspart U-100 100 unit/mL subcutaneous solution (Novolog U-100 Insulin aspart) 80 unit (0.8 mL) continuous subcutaneous infusion .continuous #72 mL 02/25/24 metoprolol succinate 25 mg tablet,extended release 24 hr 25 mg PO DAILY #90 tabs104/26/23 rosuvastatin 10 mg tablet 10 mg PO DAILY #90 tabs 02/25/24 insulin syringe-needle U-100 0.3 mL 31 gauge x 5/16 (BD Insulin Syringe Ultra- Fine) #100 ea 03/30/24 pen needle, diabetic 32 gauge x 5/32 (BD Ultra-Fine Carol Pen Needle) #50 ea 03/30/24 blood-glucose meter,continuous (Dexcom G6 Paper Coating Machine Operator) #1 ea 04/01/24 insulin pump cart,auto,BT,G6/7 (Omnipod 5 G6-G7 Pods (Gen 5) subcutaneous cartridge) #30 ea 04/01/24 sevelamer carbonate 800 mg tablet 800 mg PO DAILY 06/18/24 blood-glucose sensor (Dexcom G6 Sensor device) #9 ea 07/23/24 blood-glucose transmitter (Dexcom G6 Transmitter device) #1 ea 07/23/24 cholecalciferol (vitamin D3) 50 mcg (2,000 unit) capsule 150 mcg PO MOWEFR 07/28/24 loratadine 5 mg-pseudoephedrine ER 120 mg tablet,extended release,12hr (Claritin-D 12 Hour) 1 tab PO Q12H 08/05/24 amlodipine 5 mg tablet 10 mg (2 x 5 mg) PO DAILY #90 tabs 08/11/24 Physical Exam Narrative Seen and examined Patient had mild nausea/one-time small vomiting/dry gagging after completion of dialysis yesterday.Then he complained of back pain/scapular pain with radiation to front of chest pain. He denied shortness of breath. He had 1 stent in LAD during last HI in December 2023 Physical exam: General: Alert, Oriented x3, Cooperative HEENT: Atraumatic, PERRLA, EOMI, Normocephalic. Oral: No Gingival or Mucosal Lesions/ Ulcerations Neck: Supple, No JVD, Negative Carotid Bruits Chest wall/Lungs: Tunneled dialysis catheter in upper right chest. Air entry diminished in bilateral lung bases. No crepitation/rhonchi Cardiovascular: Regular rate and rhythm, Normal S1,S2, No M/G/R Abdomen: Bowel Sounds Present, Soft, Non Tender, Non-Distended : No dysuria. No renal angle tenderness. No suprapubic tenderness. Extremities: No edema, Capillary Refill Less than 3 Seconds Skin: No rashes, No breakdown Musculoskeletal: No Tenderness to Palpation of Joints or Extremities Neurological: Cranial nerves II-XII grossly intact, DTR 2+/4. No acute focal neurological deficit. Psych/Mental Status: Normal Affect, Appropriate. Weight / BMI Weight Weight: 194 lb 14.218 oz Body Mass Index (BMI) 27.1 ABG / Lab / Microbiology Data 08/11/24 05:26 08/11/24 05:26 Laboratory: Laboratory Results - last 24 hr 08/10/24 19:40: WBC 11.5 H, RBC 4.42 L, Hgb 13.6, Hct 39.0 L, MCV 88.2, MCH 30.8, MCHC 34.9, RDW Std Deviation 41.7, RDW Coeff of Marcella 12.8, Plt Count 359, MPV 9.2, Immature Gran % (Auto) 0.500, Neut % (Auto) 77.5 H, Lymph % (Auto) 12.1L, Bee % (Auto) 8.3, Eos % (Auto) 1.0, Baso % (Auto) 0.6, Absolute Neuts (auto)8.9 H, Absolute Lymphs (auto) 1.39, Nucleated RBC % 0, Sodium 138, Potassium 4.0, Chloride 91 L, Carbon Dioxide 20.8 L, Anion Gap 26 H, BUN 48 H, Creatinine 6.57 H, Estim Creat Clear Calc 15.60 L, Est GFR (MDRD) Non-Af 10 L, BUN/Creatinine Ratio 7.3 L, Glucose 118 H, Calcium 11.0, Troponin T High Sens 211H* 08/10/24 19:46: PT 12.7, INR 0.9, APTT 24.5 08/10/24 21:35: Troponin T Hi Sens 2 Hr 193 H* 08/10/24 23:40: Troponin T Hi Sens 4Hr 208 H*, Lipase 25 08/11/24 05:26: WBC 10.9, RBC 3.87 L, Hgb 12.1 L, Hct 34.8 L, MCV 89.9, MCH 31.3, MCHC 34.8, RDW Std Deviation 42.2, RDW Coeff of Marcella 13.0, Plt Count 302, MPV 9.4, Immature Gran % (Auto) 0.400, Neut % (Auto) 75.1 H, Lymph % (Auto) 13.4L, Bee % (Auto) 9.6, Eos % (Auto) 0.8, Baso % (Auto) 0.7, Absolute Neuts (auto)8.2 H, Absolute Lymphs (auto) 1.47, Nucleated RBC % 0, Sodium 136, Potassium 4.4, Chloride 89 L, Carbon Dioxide 20.8 L, Anion Gap 27 H, BUN 56 H, Creatinine 7.33 H, Estim Creat Clear Calc 13.98 L, Est GFR (MDRD) Non-Af 9 L, BUN/Creatinine Ratio 7.7 L, Glucose 183 H, Hemoglobin A1c 7.2 H, Calcium 9.6, Phosphorus 6.8 H, Magnesium 2.6 H, Total Bilirubin 0.38, AST 18, ALT 10, AlkalinePhosphatase 81, Total Protein 7.1, Albumin 4.3, Globulin 2.7, Albumin/Globulin Ratio 1.6, Triglycerides 146, Cholesterol 145, LDL Cholesterol, Calc 61, VLDL Cholesterol 29, HDL Cholesterol 55, Cholesterol/HDL Ratio 2.65 Radiography Diagnostic Testing: Radiology Impression Chest X-Ray 08/10/24 20:05 IMPRESSION: No acute cardiopulmonary abnormality. Reading Location: [id number] Chest CTA 08/10/24 21:35 IMPRESSION: No evidence of pulmonary embolism or acute findings in the thorax. 6.5 x 4.7 cm right hepatic lobe mass. Differential considerations include a hemangioma. Recommend further evaluation with CT or MRI liver protocol. Reading Location[facility] Instructions Discharge Diet: Low fat / Low cholesterol, 1800 Calorie Control Diet and 2000 mgSodium Diet Weight Bearing Status: Weight bearing as tolerated Call your doctor if you observe: Fever of 101 or Higher, Coldness, Increased Pain, Numbness or Tingling, Change in Color, Inability to urinate, Inability to have a bowel movement, Shortness of breath, Dizziness, Fainting spells, Swellingin the ankles, Chest pain, Prolonged hiccupping, Increased palpitations (irregular heartbeat) and Calf discomfort DC O2, CPAP, BIPAP Needs Home O2 Discharge instructions: No When: IN 2 WEEKS Meaningful Use Info Meaningful Use Meaningful Use Diagnoses (Choose all that apply): None applicable Ischemic Stroke Statin Dosing Therapy Reference: STATIN DOSE THERAPY REFERENCE: * Patients > 75 years receive moderate or high dose statin therapy. * Patients 75 years or YOUNGER should receive HIGH intensity statin dose unless contraindicated. You will be required to document reason for non-treatment if statin daily dose does not meet guidelines. HIGH DOSE STATIN THERAPY DAILY Atorvastatin > than or = to 40 mg Rosuvastatin > than or = to 20 mg Amlodipine + Atorvastatin > than or = to 2.5/40 mg Ezetimibe + Simvastatin 10/80 mg Simvastatin 80mg Discharge Plan Admission Admit Date/Time: 08/10/24 23:09 Primary Reason for Your Visit: Atypical chest pain. ACS ruled out Attending Provider: Louis Koehler Primary Care Provider: Kristal Sullivan Consulting Providers: Eugenia London; Daisy Diaz Discharge Orders/Prescriptions Prescriptions: Continued (DME) FreeStyle Lite Strips Strip See Rx Instructions .Route Qty: 100 6RF Rx Instructions: 3x/day clopidogrel 75 mg tablet 75 mg PO DAILY Qty: 90 3RF metoprolol succinate 25 mg tablet extended release 24 hr 25 mg PO DAILY Qty: 90 3RF aspirin 81 mg tablet,delayed release (DR/EC) 81 mg PO BREAKFAST Qty: 90 3RF insulin aspart U-100 [Novolog U-100 Insulin aspart] 100 unit/mL solution 80 unit continuous subcutaneous infusion .continuous Qty: 72 1RF rosuvastatin 10 mg tablet 10 mg PO DAILY Qty: 90 1RF cholecalciferol (vitamin D3) 50 mcg (2,000 unit) capsule 150 mcg PO MOWEFR sevelamer carbonate 800 mg tablet 800 mg PO DAILY Rx Instructions: must administer with a meal/food Claritin-D 12 Hour 5-120 mg tablet extended release 12 hr 1 tab PO Q12H (DME) lancing device with lancets [INCIDE Delica Plus Lanc Dev] Kit See Rx Instructions .Route Qty: 100 1RF Rx Instructions: 4x/day (DME) pen needle, diabetic [BD Ultra-Fine Carol Pen Needle] 32 gauge x 5/32 needle See Rx Instructions .ROUTE .MEDSUPPLY Qty: 150 5RF Rx Instructions: 4 times daily (DME) pen needle, diabetic [BD Ultra-Fine Carol Pen Needle] 32 gauge x 5/32 needle See Rx Instructions .ROUTE .MEDSUPPLY Qty: 50 0RF Rx Instructions: daily (DME) insulin syringe-needle U-100 [BD Insulin Syringe Ultra-Fine] 0.3 mL 31 gauge x 5/16 syringe See Rx Instructions .Route Qty: 100 1RF Rx Instructions: tid (DME) Dexcom G6 Paper Coating Machine Operator Misc See Rx Instructions .Route Qty: 1 0RF Rx Instructions: As directed ([facility]) Omnipod 5 G6-G7 Pods (Gen 5) Cartridge See Rx Instructions .Route Qty: 30 1RF Rx Instructions: change every 3 days (DME) Dexcom G6 Sensor Device See Rx Instructions .Route Qty: 9 1RF Rx Instructions: 1 sensor q 10 days (DME) Dexcom G6 Transmitter Device See Rx Instructions .Route Qty: 1 1RF Rx Instructions: 1 q 90 days Changed amlodipine 5 mg tablet 10 mg PO DAILY Qty: 90 3RF Referrals / Follow Up: Osvaldo,Naila Tan [Emergency Nurse] - Kristal Sullivan MD [Primary Care Provider] - Daisy Diaz MD [Med Staff - Consulting] - Within 1 Month Disposition Disposition (needs filled in before D/C Order can be placed): Home, Self Care Charges/Coding Visit Charges Inpatient E&M: 64574 Disch Hosp >30min 08/11/24 4865 Cosigner Signature (if applicable): CC: Dr. Kristal Sullivan MD; Dr. Daisy Diaz MD; Dr. Louis Koheler MD~ Signed [facility]05-14-20[facility] Discharge summary [facility] Medical Records Department [address] [place] [address] Instructions for Home/Discharge Instructions 08/11/24 1429 MR#: [id number] Acct: [id number] Name: LAURIE GONZALES Rep #:[id number] : 1980 44 From: Louis Ricketts PCP: Dr. Kristal Sullivan MD Status:ADM I NO Discharge Instructions Diet Discharge Diet: Low fat / Low cholesterol, 1800 Calorie Control Diet and 2000 mgSodium Diet DC O2, CPAP, BIPAP needs Home O2 Discharge instructions: No Dressing / Incision Discharge Activity: Return to Normal Activity Weight Bearing Status: Weight bearing as tolerated Dressing / Incision Call your doctor if you observe: Fever of 101 or Higher, Coldness, Increased Pain, Numbness or Tingling, Change in Color, Inability to urinate, Inability to have a bowel movement, Shortness of breath, Dizziness, Fainting spells, Swellingin the ankles, Chest pain, Prolonged hiccupping, Increased palpitations (irregular heartbeat) and Calf discomfort Follow Up Care When: IN 2 WEEKS Test Results: Test results from this visit will be discussed in further detail at your follow- up appointment, if applicable. Discharge Plan Admission Admit Date/Time: 08/10/24 23:09 Primary Reason for Your Visit: Atypical chest pain. ACS ruled out Attending Provider: Louis Koehler Primary Care Provider: Kristal Sullivan Consulting Providers: Eugenia London; Daisy Diaz Discharge Orders/Prescriptions Prescriptions: Continued (DME) FreeStyle Lite Strips Strip See Rx Instructions .Route Qty: 100 6RF Rx Instructions: 3x/day clopidogrel 75 mg tablet 75 mg PO DAILY Qty: 90 3RF metoprolol succinate 25 mg tablet extended release 24 hr 25 mg PO DAILY Qty: 90 3RF aspirin 81 mg tablet,delayed release (DR/EC) 81 mg PO BREAKFAST Qty: 90 3RF insulin aspart U-100 [Novolog U-100 Insulin aspart] 100 unit/mL solution 80 unit continuous subcutaneous infusion .continuous Qty: 72 1RF rosuvastatin 10 mg tablet 10 mg PO DAILY Qty: 90 1RF cholecalciferol (vitamin D3) 50 mcg (2,000 unit) capsule 150 mcg PO MOWEFR sevelamer carbonate 800 mg tablet 800 mg PO DAILY Rx Instructions: must administer with a meal/food Claritin-D 12 Hour 5-120 mg tablet extended release 12 hr 1 tab PO Q12H (DME) lancing device with lancets [INCIDE Delica Plus Lanc Dev] Kit See Rx Instructions .Route Qty: 100 1RF Rx Instructions: 4x/day (DME) pen needle, diabetic [BD Ultra-Fine Carol Pen Needle] 32 gauge x 5/32 needle See Rx Instructions .ROUTE .MEDSUPPLY Qty: 150 5RF Rx Instructions: 4 times daily (DME) pen needle, diabetic [BD Ultra-Fine Carol Pen Needle] 32 gauge x 5/32 needle See Rx Instructions .ROUTE .MEDSUPPLY Qty: 50 0RF Rx Instructions: daily ([facility]) insulin syringe-needle U-100 [BD Insulin Syringe Ultra-Fine] 0.3 mL 31 gauge x 5/16 syringe See Rx Instructions .Route Qty: 100 1RF Rx Instructions: tid (DME) Dexcom G6 Paper Coating Machine Operator Misc See Rx Instructions .Route Qty: 1 0RF Rx Instructions: As directed ([facility]) Omnipod 5 G6-G7 Pods (Gen 5) Cartridge See Rx Instructions .Route Qty: 30 1RF Rx Instructions: change every 3 days (DME) Dexcom G6 Sensor Device See Rx Instructions .Route Qty: 9 1RF Rx Instructions: 1 sensor q 10 days (DME) Dexcom G6 Transmitter Device See Rx Instructions .Route Qty: 1 1RF Rx Instructions: 1 q 90 days Changed amlodipine 5 mg tablet 10 mg PO DAILY Qty: 90 3RF Referrals / Follow Up: Kristal Sullivan MD [Primary Care Provider] - Naila Riley [Emergency Nurse] - Daisy Diaz MD [Med Staff - Consulting] - Within 1 Month Disposition Disposition (needs filled in before D/C Order can be placed): Home, Self Care 08/11/24 1435Louis Koehler MD CC: Dr. Kristal Sullivan MD; Dr. Daisy Diaz MD; Dr. Eugenia London DO ~ Signed [facility]05-14-2025 History and physical note Author Eugenia London [facility] Note Date/Time August 11, 2024 1:21a m [facility] Medical Records Department [address] [place] [address] H&P Exam - Hospitalist 08/10/24 2308 MR#: [id number] Acct: [id number] Name: LAURIE GONZALES Rep #:[id number] : 1980 44 From: Eugenia London DO PCP: Dr. Kristal Sullivan MD Status:ADM I NO Location: [id number] HPI - General General Date of Admission: 08/10/24 Date of Service: 08/10/24 Chief Complaint: Chest pain HPI Narrative LAURIE GONZALES, is a 44 M who presented to the emergency department at [facility] on 08/10/2024 with a chief complaint of chest pain. Patient has a complex past medical history including type 1 diabetes on an insulin pump and end-stage renal disease on HD. Patient was at dialysis and completed dialysis, however, after dialysis he experienced chest pain. He states he started actually with some nausea and vomiting and had resultant chest pain. Amarilis have a history of coronary artery disease with previous stent placement. He stated he did not have chest pain at that time and never really has any chestpain. Since his initial episode he has had ongoing intermittent nausea and vomiting and states that it seems to be correlated with his chest pain. He denies any correlated dyspnea or diaphoresis. Symptoms did not radiate and weresubsternal and seem to radiate from the epigastrium and to the central chest area. Vital signs on presentation showed temperature of 97, heart rate 102, respiratory was 18, blood pressure was initially 151/102 with a repeat of 168/84, and pulse ox was 100% on room air. CBC shows a mild leukocytosis with awhite count 11.5. Hemoglobin was 13.6 with a history of chronic anemia so he does appear to be mildly hemoconcentrated. Neutrophils were 77.5%. Coags were unremarkable. Chemistry showed multiple deviations from normal related to his underlying renal disease. Initial troponin was 211 with a delta of 193 and a 4-hour troponin of 208. Lipase was normal at 25. EKG showed normal sinus rhythm without any ST-T wave changes concerning for acute ischemia. Chest x-ray was unremarkable. CTA of the chest showed no evidence of PE or dissection and demonstrated a 6.5 x 4.7 right hepatic lobe mass that looks consistent with hemangioma and further evaluation with a CT or MRI liver protocol was recommended. [facility] Medical History Insulin dependent diabetes mellitus Diabetes History of renal dialysis History of renal disease Back pain Injury of back Dietary restriction Gastric reflux Non-smoker Leg cramps Cardiology follow-up encounter History of echocardiogram History of heart attack Acute non-ST elevation myocardial infarction (NSTEMI) CKD (chronic kidney disease), stage V Congestive heart failure of unknown etiology Overweight (BMI 25.0-29.9) NSTEMI, initial episode of care Acute kidney injury superimposed on chronic kidney disease Elevated troponin Pre-op testing ESRF (end stage renal failure) Stage 4 chronic kidney disease Diabetes mellitus type 1 Insulin pump titration Presence of insulin pump CKD (chronic kidney disease) Hypertension Obesity Abscess Charcot foot due to diabetes mellitus Type 1 diabetes mellitus Acute kidney injury DKA (diabetic ketoacidoses) DM type 1 (diabetes mellitus, type 1) Home Medications ?Medication ?Instructions ?Recorded ?Last Taken ?Type blood sugar diagnostic (FreeStyle #100 ea 10/08/21 Unk nown Rx Lite Strips) lancing device with lancets kit #100 ea 11/26/21 Unkno wn Rx ([place] EndeavorsTouch Delica Plus Lancing Device kit) pen needle, diabetic 32 gauge x #150 ea 02/26/22 Unkno wn Rx (BD Ultra-Fine Carol Pen Needle) aspirin 81 mg tablet,delayed 81 mg PO BREAKFAST #90 ta bs 02/25/24 08/10/24 Rx release clopidogrel 75 mg tablet 75 mg PO DAILY #90 tabs 01/3008/10/24 Rx insulin aspart U-100 100 unit/mL 80 unit (0.8 mL) cont inuous 02/25/24 08/10/24 Rx subcutaneous solution (Novolog subcutaneous infusion . continuous U-100 Insulin aspart) #72 mL metoprolol succinate 25 mg 25 mg PO DAILY #90 tabs 08/10/24 Rx tablet,extended release 24 hr rosuvastatin 10 mg tablet 10 mg PO DAILY #90 tabs 01/3008/10/24 Rx insulin syringe-needle U-100 0.3 #100 ea 03/30/24 Unkn own Rx mL 31 gauge x 5/16 (BD Insulin Syringe Ultra-Fine) pen needle, diabetic 32 gauge x #50 ea 03/30/24 Unknow n Rx 5/32 (BD Ultra-Fine Carol Pen Needle) blood-glucose meter,continuous #1 ea 04/01/24 Unknown Rx (Dexcom G6 Paper Coating Machine Operator) insulin pump cart,auto,BT,G6/7 #30 ea 04/01/24 Unknown Rx (Omnipod 5 G6-G7 Pods (Gen 5) subcutaneous cartridge) amlodipine 5 mg tablet 5 mg PO DAILY #90 tabs 05/1008/10/24 Rx sevelamer carbonate 800 mg tablet 800 mg PO DAILY 05/3008/10/24 History blood-glucose sensor (Dexcom G6 #9 ea 07/23/24 Unknown Rx Sensor device) blood-glucose transmitter (Dexcom #1 ea 07/23/24 Unkno wn Rx G6 Transmitter device) cholecalciferol (vitamin D3) 50 150 mcg PO MOWEFR 07/0108/09/24 History mcg (2,000 unit) capsule loratadine 5 mg-pseudoephedrine ER 1 tab PO Q12H 08/05 Unknown History 120 mg tablet,extended release,12hr (Claritin-D 12 Hour) Allergy/AdvReac Type Severity Reaction Status Date / Time No Known Allergies Allergy Verified 08/10/24 19:36 Family History Mother Diabetes Thyroid disorder Grandmother Diabetes Grandfather Diabetes Surgical History History of cardiac catheterization History of heart surgery Hx of surgical procedure History of coronary artery stent placement History of surgery on lower extremity Social History Smoking Status: Never smoker alcohol intake: never substance use type: does not use ROS Constitutional Constitutional: Denies anorexia, change in weight, chills, fatigue, fever(s), malaise, night sweats, weakness or other Eyes Eyes: Denies blurry vision, change in eye color, change in vision, discharge from eye(s), double vision, erythema, eye pain, loss of vision or other ENT HEENT: Denies abnormal hearing, dysphagia, ear pain, epistaxis, headache(s), hearing loss, nasal congestion, nasal discharge, post nasal drip, sinus pressure, sore throat or other Cardiovascular Cardiovascular: Reports chest pain; Denies claudication, dyspnea on exertion, edema, lightheadedness, orthopnea, palpitations, paroxysmal nocturnal dyspnea, rapid heart rate, syncope or other Respiratory/Chest Respiratory/Chest: Denies cough, dyspnea, excessive phlegm production, hemoptysis, productive cough, shortness of breath at rest, shortness of breath with exertion, wheezing or other Gastrointestinal Gastrointestinal: Reports dyspepsia, nausea and vomiting; Denies abdominal pain,coffee ground emesis, constipation, diarrhea, hematemesis, hematochezia, loose stools, melena or other Genitourinary Genitourinary: Denies burning urination, difficulty urinating, dysuria, hematuria, nocturia, urinary frequency, urinary hesitancy, urinary incontinence,urinary urgency or other Musculoskeletal Musculoskeletal: Reports back pain; Denies arthralgias, joint pain, joint stiffness, joint swelling, myalgias, neck pain or other Neurologic Neurologic: Denies abnormal gait, abnormal speech, confusion, disequilibrium, dizziness, focal weakness, headache(s), numbness, paresthesias, seizure-like activity, seizures, syncope, tingling, tremor(s) or other Psychiatric Psychiatric: Denies anxiety, depression, homicidal ideation, suicidal ideation or other Endocrine Endocrinology: Denies change in body appearance, cold intolerance, excessive sweating, heat intolerance, polydipsia, polyuria or other Hematologic/Lymphatic Hematologic/Lymphatic: Denies anemia, easy bleeding, easy bruising, lymphadenopathy or other Allergic/Immunologic Allergic/Immunologic: Denies rhinitis, hives, eczemia, asthma or other Vital Signs Vital Signs Vital Signs: 08/10/24 19:36 08/10/24 19:49 08/10/24 20:03 Temperature 97 F L Temperature Source Temporal Pulse Rate 102 H Respiratory Rate 18 Respiratory Effort Normal Non-Labored Blood Pressure 151/102 H Blood Pressure Mean 118 Pulse Ox 100 100 Oxygen Delivery Method Room Air Room Air 08/10/24 20:35 08/10/24 21:00 08/10/24 21:56 Temperature Temperature Source Pulse Rate 94 105 H 98 Respiratory Rate 16 18 18 Respiratory Effort Blood Pressure 163/84 H 163/83 H 173/84 H Blood Pressure Mean 110 109 113 Pulse Ox 100 100 100 Oxygen Delivery Method Room Air Room Air Room Air 08/10/24 22:00 08/10/24 23:00 Temperature Temperature Source Pulse Rate 99 102 H Respiratory Rate 16 15 Respiratory Effort Blood Pressure 173/84 H 169/86 H Blood Pressure Mean 113 113 Pulse Ox 100 100 Oxygen Delivery Method Room Air Room Air Weight Weight: 90.2 kg Body Mass Index (BMI) 27.7 Physical Exam Const alert, oriented x3 and well nourished Constitutional Narrative: Overweight, middle-aged, white male, lying in bed and appears uncomfortable but not toxic, nursing at bedside, just had emesis General Appearance: cooperative HEENT normocephalic, head/scalp atraumatic, hearing grossly normal bilaterally and moist oral mucous membranes HEENT Narrative: Mallampati 3, no thrush Eyes EOMs intact bilaterally and conjunctivae normal Eyes Narrative: No scleral icterus Neck supple Neck Narrative: Trachea midline Resp normal respiratory effort, no retractions, no use of accessory muscles and clearto auscultation bilaterally Auscultation: Negative for rales, rhonchi or wheezes Cardio regular rate, regular rhythm, S1 normal heart sound, S2 normal heart sound, no murmurs, no rub, no gallops and no clicks GI normal to inspection, nondistended, normoactive bowel sounds, soft to palpation and non-tender GI Narrative: No tenderness in the abdomen or epigastric area Extremity no clubbing, cyanosis or edema Extremity Narrative: Pedal and radial pulses are 2+ Neuro oriented x3, moves all extremities and no focal motor deficits Speech: speech normal Psych Psych Narrative: Affect is slightly flat but appropriate for the situation, interacts appropriately and eye contact is good Results Lab / Micro Data 08/10/24 19:40 08/10/24 19:40 Labs: Laboratory Results - last 24 hr 08/10/24 19:40: WBC 11.5 H, RBC 4.42 L, Hgb 13.6, Hct 39.0 L, MCV 88.2, MCH 30.8, MCHC 34.9, RDW Std Deviation 41.7, RDW Coeff of Marcella 12.8, Plt Count 359, MPV 9.2, Immature Gran % (Auto) 0.500, Neut % (Auto) 77.5 H, Lymph % (Auto) 12.1L, Bee % (Auto) 8.3, Eos % (Auto) 1.0, Baso % (Auto) 0.6, Absolute Neuts (auto)8.9 H, Absolute Lymphs (auto) 1.39, Nucleated RBC % 0, Sodium 138, Potassium 4.0, Chloride 91 L, Carbon Dioxide 20.8 L, Anion Gap 26 H, BUN 48 H, Creatinine 6.57 H, Estim Creat Clear Calc 15.60 L, Est GFR (MDRD) Non-Af 10 L, BUN/Creatinine Ratio 7.3 L, Glucose 118 H, Calcium 11.0, Troponin T High Sens 211H* 08/10/24 19:46: PT 12.7, INR 0.9, APTT 24.5 08/10/24 21:35: Troponin T Hi Sens 2 Hr 193 H* Imaging Radiology Impression Chest X-Ray 08/10/24 20:05 IMPRESSION: No acute cardiopulmonary abnormality. Reading Location: [id number] Chest CTA 08/10/24 21:35 IMPRESSION: No evidence of pulmonary embolism or acute findings in the thorax. 6.5 x 4.7 cm right hepatic lobe mass. Differential considerations include a hemangioma. Recommend further evaluation with CT or MRI liver protocol. Reading Location: [facility] Assessment & Plan Assessment/Plan (1) Chest pain: (2) Dyspepsia: (3) Elevated troponin: PLAN: Plan Chest pain with troponin elevation - Cardiac enzymes are elevated but mild and fluctuating and in the setting of renal disease the significance of this is unclear - Case was discussed with Dr. Lio Cross from cardiology by the emergency department--> Per discussion with ED physician Dr. Cross recommended obtaining a pharmacological stress test after reviewing his previous cardiac catheterization - Previous cardiac catheterization did show that his vessels were small that were not amenable to intervention -A.m. stress test ordered and if positive for ischemia cardiac consultation -Heparin drip not recommended at this time by cardiology - Check lipid panel - Check hemoglobin A1c - Continue Plavix - Continue aspirin - Continue metoprolol - Continue home statin - Significance of troponin elevation in the setting of CKD on dialysis is unclear Dyspepsia - GI cocktail given - Reevaluate tomorrow - Chest pain seems more consistent with dyspepsia however with his history it isprudent to rule out cardiac involvement Leukocytosis - Suspect either hemoconcentrated with nausea vomiting and/or reactive - Repeat in a.m. Liver mass - 6.5 x 4.7 cm right hepatic lobe mass - Differential included hemangioma - Recommend outpatient CT or MRI with liver protocol - Patient will need outpatient follow-up - Check a.m. liver enzymes End-stage renal disease - HD dependent - Consult nephrology - Normal dialysis days are MWF - Continue sevelamer History of chronic anemia secondary to renal disease - Patient currently not anemic - Monitor CBC DM-1 - Continue insulin pump - Pump auto regulates blood sugar - Continue outpatient follow-up with endocrinology - Check hemoglobin A1c CAD/essential hypertension/hyperlipidemia -Previous PCI to LAD - Last echocardiogram from 01/23/2024 showed EF of 60% with mild apical hypokinesis and mild mitral valve insufficiency but was otherwise unremarkable -Continue home metoprolol -Continue home amlodipine - Continue home rosuvastatin - Continue home aspirin and Plavix Secondary hyperparathyroidism - Continue home sevelamer Vitamin D deficiency - Continue vitamin D supplementation DVT prophylaxis - Subcu heparin 3 times daily CODE STATUS - Full code Charges/Coding Visit Charges Inpatient E&M: 18317 Init Hosp L2 08/11/24 0121 <Electronically signed by Eugenia London DO> Cosigner Signature (if applicable): CC: Dr. Kristal Sullivan MD; Dr. Eugenia London DO~ Signed [facility] Work Phone: [phone] Discharge summary Author Jace Farzana [facility] Note Date/Time August 10, 2024 11:53 pm [facility] Medical Records Department [address] [place] [address] Emergency Department Summary 08/10/24 MR#: [id number] Acct: [id number] Name: LAURIE GONZALES Rep #:[id number] : 1980 44 From: Jace Rios PCP: Dr. Kristal Sullivan MD Status:REG E R Location: ED HPI History of Present Illness Chief Complaint: Chest Pain Informant: patient Narrative Narrative: Presents with chest pain starting yesterday around 6 PM after dialysis. States pain started his back then moved to the front stating sharp in nature made him nauseated. He states similar presentation last December when he had his heart attack requiring 1 stent in his LAD. He is currently on aspirin and Plavix he took today's dose. He had pain throughout the night. Currently pain is subsided. He does make urine. He states diabetes history age of 18 on insulin. He had chronic kidney disease at that time. He states with his heart attack and receiving IV dye he went into renal failure starting dialysis. He is followed by Dr. Diaz. He had dialysis whole course yesterday. He is unaware of any other coronary lesions. He does not smoke. No recent travel or surgeries. Denies family history of MIs at a young age. Prior Similar Symptoms: Yes and With Prior HI CVD Risk Factors: Positive for Hypertension, Diabetes and Hypercholesterolemia; Negative for Family History 1' </=55 or Smoking PE Risk Factors: Negative for Recent Travel/Surgery, Recent Immobilization or Prior DVT or PE PFSH [facility] Medical History Insulin dependent diabetes mellitus Diabetes History of renal dialysis History of renal disease Back pain Injury of back Dietary restriction Gastric reflux Non-smoker Leg cramps Cardiology follow-up encounter History of echocardiogram History of heart attack Acute non-ST elevation myocardial infarction (NSTEMI) CKD (chronic kidney disease), stage V Congestive heart failure of unknown etiology Overweight (BMI 25.0-29.9) NSTEMI, initial episode of care Acute kidney injury superimposed on chronic kidney disease Elevated troponin Pre-op testing ESRF (end stage renal failure) Stage 4 chronic kidney disease Diabetes mellitus type 1 Insulin pump titration Presence of insulin pump CKD (chronic kidney disease) Hypertension Obesity Abscess Charcot foot due to diabetes mellitus Type 1 diabetes mellitus Acute kidney injury DKA (diabetic ketoacidoses) DM type 1 (diabetes mellitus, type 1) Home Medications ?Medication ?Instructions ?Recorded ?Last Taken ?Type blood sugar diagnostic (FreeStyle #100 ea 10/08/21 Unk nown Rx Lite Strips) lancing device with lancets kit #100 ea 11/26/21 Unkno wn Rx (OneTouch Delica Plus Lancing Device kit) pen needle, diabetic 32 gauge x #150 ea 02/26/22 Unkno wn Rx 5/32 (BD Ultra-Fine Carol Pen Needle) aspirin 81 mg tablet,delayed 81 mg PO BREAKFAST #90 ta bs 02/25/24 08/10/24 Rx release clopidogrel 75 mg tablet 75 mg PO DAILY #90 tabs 01/3008/10/24 Rx insulin aspart U-100 100 unit/mL 80 unit (0.8 mL) cont inuous 02/25/24 08/10/24 Rx subcutaneous solution (Novolog subcutaneous infusion . continuous U-100 Insulin aspart) #72 mL metoprolol succinate 25 mg 25 mg PO DAILY #90 tabs 08/10/24 Rx tablet,extended release 24 hr rosuvastatin 10 mg tablet 10 mg PO DAILY #90 tabs 01/3008/10/24 Rx insulin syringe-needle U-100 0.3 #100 ea 03/30/24 Unkn own Rx mL 31 gauge x 5/16 (BD Insulin Syringe Ultra-Fine) pen needle, diabetic 32 gauge x #50 ea 03/30/24 Unknow n Rx 5/32 (BD Ultra-Fine Carol Pen Needle) blood-glucose meter,continuous #1 ea 04/01/24 Unknown Rx (Dexcom G6 Paper Coating Machine Operator) insulin pump cart,auto,BT,G6/7 #30 ea 04/01/24 Unknown Rx (Omnipod 5 G6-G7 Pods (Gen 5) subcutaneous cartridge) amlodipine 5 mg tablet 5 mg PO DAILY #90 tabs 05/1008/10/24 Rx sevelamer carbonate 800 mg tablet 800 mg PO DAILY 05/3008/10/24 History blood-glucose sensor (Dexcom G6 #9 ea 07/23/24 Unknown Rx Sensor device) blood-glucose transmitter (Dexcom #1 ea 07/23/24 Unkno wn Rx G6 Transmitter device) cholecalciferol (vitamin D3) 50 150 mcg PO MOWEFR 07/0108/09/24 History mcg (2,000 unit) capsule loratadine 5 mg-pseudoephedrine ER 1 tab PO Q12H 08/05 Unknown History 120 mg tablet,extended release,12hr (Claritin-D 12 Hour) Allergy/AdvReac Type Severity Reaction Status Date / Time No Known Allergies Allergy Verified 08/10/24 19:36 Family History Mother Diabetes Thyroid disorder Grandmother Diabetes Grandfather Diabetes Surgical History History of cardiac catheterization History of heart surgery Hx of surgical procedure History of coronary artery stent placement History of surgery on lower extremity Social History Smoking Status: Never smoker alcohol intake: never substance use type: does not use ROS ROS ED Constitutional Constitutional ED: Denies chills, fever(s) or sweats ENT ENT ED: Denies sore throat Cardiovascular Cardiovascular: Reports chest pain; Denies leg edema, palpitations or racing heartbeat Respiratory/Chest Respiratory/Chest: Denies cough, dyspnea or dyspnea on exertion Gastrointestinal Gastrointestinal: Denies abdominal pain, diarrhea, nausea or vomiting Genitourinary Genitourinary ED: Denies dysuria, hematuria or urinary frequency Musculoskeletal Musculoskeletal: Reports back pain; Denies extremity pain or neck pain Integumentary Denies rash or wounds Neurologic Neurologic: Denies headache(s), paresthesias or weakness EXAM Physical Exam Const Vital Signs: 08/10/24 19:36 08/10/24 19:49 08/10/24 20:03 Temperature 97 F L Temperature Source Temporal Pulse Rate 102 H Respiratory Rate 18 Respiratory Effort Normal Non-Labored Blood Pressure 151/102 H Blood Pressure Mean 118 Pulse Ox 100 100 Oxygen Delivery Method Room Air Room Air 08/10/24 20:35 08/10/24 21:00 08/10/24 21:56 Temperature Temperature Source Pulse Rate 94 105 H 98 Respiratory Rate 16 18 18 Respiratory Effort Blood Pressure 163/84 H 163/83 H 173/84 H Blood Pressure Mean 110 109 113 Pulse Ox 100 100 100 Oxygen Delivery Method Room Air Room Air Room Air 08/10/24 22:00 08/10/24 23:00 08/10/24 23:50 Temperature 98.3 F Temperature Source Pulse Rate 99 102 H 108 H Respiratory Rate 16 15 19 H Respiratory Effort Blood Pressure 173/84 H 169/86 H 164/96 H Blood Pressure Mean 113 113 118 Pulse Ox 100 100 100 Oxygen Delivery Method Room Air Room Air Positive well nourished and well developed General Appearance ED: well developed and NAD HEENT Reports moist mucous membranes normocephalic and atraumatic Eyes General Eye ED: Yes normal appearance of both eyes Neck full ROM Chest Wall Chest: Negative for tenderness Resp normal respiratory effort and normal air movement Effort and Inspection: symmetric chest movement; Negative for respiratory distress Cardio regular rate, regular rhythm and no murmurs Peripheral Pulses: pulses 2+ throughout GI normal to inspection, nondistended, normoactive bowel sounds and non-tender Palpation: Negative for guarding or rebound tenderness present Extremity normal to inspection General Extremety ED: Negative for edema or tenderness General Extremity: Negative for edema Neuro oriented x3 and no sensory deficits noted Sensorium / Orientation: awake and alert Skin no rashes or lesions noted and no wounds Heart Score History: Moderately Suspicious ECG: Normal Age: </= 45 years Risk Factors: >/= 3 Risk Factors or History of CAD Troponin: >/=3 x Normal Limit Score: 5 MDM MDM MDM Narrative Medical decision making narrative: Interventions / MDM: Differential diagnosis: chest pain, end-stage renal disease on hemodialysis, history of coronary disease Diagnosis considered but do not suspect: Aortic dissection however CT negative. My EKG interpretation: Sinus rate of 100, no ST changes, isolated T wave inversion in aVL. QTc of 497. Imaging independently reviewed and interpreted by myself: 2 view chest x-ray. No acute process right chest wall Vas-Cath. CT angiogram chest: No PE or dissection. hemangioma of the liver noted. External documents reviewed: Cardiac cath December 2023: Coronary angiography; 1. Left main is normal angiographically calcified with extension of calcification into LAD. The left main coronary artery bifurcates into LAD and left circumflex 2. The left anterior descending artery had diffuse atherosclerosis of around 70% involving the mid LAD after the first septal branch. There was a fairly diagonal had diffuse atherosclerosis of around 70 the second diagonal also is a small but have a diffuse atherosclerosis 70-80. The LAD in the distal portion has no significant atherosclerosis 3. The left circumflex is moderate in size second OM branch had mid and the distal diffuse atherosclerosis of around 60% 4. RCA is large dominant with distal RCA had around 50% The bifurcation of the PDA and the posterolateral branch has a diffuse atherosclerosis. CAD in conclusion this patient has with diabetes renal insufficiency diffuse coronary artery atherosclerosis with successful PCI of the culprit lesion for non-ST elevation HI which is a diffuse left anterior descending artery. Test considered but not ordered:N/A ED course: Patient currently chest pain-free EKG with no acute findings. Patient presenting similar symptoms led to his heart attack this past December however states his pain was worse. He took his aspirin and Plavix today. Cardiac workup initiated. Chest x-ray ordered. 2119: Review of records he had multivessel disease culprit was the mid LAD at 70%. Troponin returned at 211. 2129: Reported from nursing patient had recurrent pain in his chest and vomited once. Order for repeat EKG. 2130: Repeat EKG unchanged. Symptoms subsiding. I reviewed records as he initially reported the similar symptoms from his hospitalization in December. Apparently was admitted for DKA at that time with vague symptoms leading to troponin 2199 then cardiology involvement for the catheterization. Since yesterday reporting pain in his back and sharp pain in his chest. I did discusswith him with his symptoms should rule out aortic dissection prior to starting heparin. He is on dialysis with next treatment tomorrow. I will order CT angioof the chest for dissection rule out prior to starting heparin. 2249: CT angiogram negative for dissection however notes right hepatic lobe massof 6.5 cm with more likely consideration of hemangioma. Currently symptom-free. I spoke with on-call dry kiln loader Dr. Cross discussed his history his cath findings, he discussed that his vessels are small vessels that are not amenable to intervention. He states with his cardiac enzymes trending down and his symptoms are over 24 hours he would not recommend heparinizing at this time. Herecommends admission for pharmacological stress test and if positive for cardiology to be involved for further workup otherwise plan for outpatient follow-up with cardiology team. I will speak with hospitalist service for admission. I spoke with Dr. Anika London for admission to PCU. 2340: Per nursing patient another bout of emesis and chest discomfort. QTc 497. IV Reglan and IV morphine ordered for symptom control. Re-evaluation: stable Disposition discussed with patient/family/significant other: Patient and ex significant other Case discussed with consulting clinician: Cardiology, hospitalist This note was generated with [email or web address] dictation software. It may contain incorrectwords, spelling, and punctuation that were not noted in checking the note beforesigning. Lab Data Attestation: I reviewed the patient's lab results. Labs: Laboratory Results - last 24 hr 08/10/24 08/10/24 08/10/24 19:40 19:46 21:35 WBC 11.5 H RBC 4.42 L Hgb 13.6 Hct 39.0 L MCV 88.2 MCH 30.8 MCHC 34.9 RDW Std Deviation 41.7 RDW Coeff of Marcella 12.8 Plt Count 359 MPV 9.2 Immature Gran % (Auto) 0.500 Neut % (Auto) 77.5 H Lymph % (Auto) 12.1 L Bee % (Auto) 8.3 Eos % (Auto) 1.0 Baso % (Auto) 0.6 Absolute Neuts (auto) 8.9 H Absolute Lymphs (auto) 1.39 Nucleated RBC % 0 PT 12.7 INR 0.9 APTT 24.5 Sodium 138 Potassium 4.0 Chloride 91 L Carbon Dioxide 20.8 L Anion Gap 26 H BUN 48 H Creatinine 6.57 H Estim Creat Clear Calc 15.60 L Est GFR (MDRD) Non-Af 10 L BUN/Creatinine Ratio 7.3 L Glucose 118 H Calcium 11.0 Troponin T High Sens 211 H* Troponin T Hi Sens 2 Hr 193 H* Radiography Diagnostic Testing: Clinical Impression(s) from Imaging Studies Chest X-Ray 08/10/24 20:05 IMPRESSION: No acute cardiopulmonary abnormality. Reading Location: [id number] Chest CTA 08/10/24 21:35 IMPRESSION: No evidence of pulmonary embolism or acute findings in the thorax. 6.5 x 4.7 cm right hepatic lobe mass. Differential considerations include a hemangioma. Recommend further evaluation with CT or MRI liver protocol. Reading [facility] Dis[facility] Plan Triage Chief Complaint: Chest Pain ED Provider: Jace Yanes Dx/Rx/DC Orders Prescriptions: No Action (DME) FreeStyle Lite Strips Strip See Rx Instructions .Route Qty: 100 6RF Rx Instructions: 3x/day clopidogrel 75 mg tablet 75 mg PO DAILY Qty: 90 3RF metoprolol succinate 25 mg tablet extended release 24 hr 25 mg PO DAILY Qty: 90 3RF aspirin 81 mg tablet,delayed release (DR/EC) 81 mg PO BREAKFAST Qty: 90 3RF insulin aspart U-100 [Novolog U-100 Insulin aspart] 100 unit/mL solution 80 unit continuous subcutaneous infusion .continuous Qty: 72 1RF rosuvastatin 10 mg tablet 10 mg PO DAILY Qty: 90 1RF cholecalciferol (vitamin D3) 50 mcg (2,000 unit) capsule 150 mcg PO MOWEFR sevelamer carbonate 800 mg tablet 800 mg PO DAILY Rx Instructions: must administer with a meal/food Claritin-D 12 Hour 5-120 mg tablet extended release 12 hr 1 tab PO Q12H ([facility]) lancing device with lancets [Docphinuch Delica Plus Lanc Dev] Kit See Rx Instructions .Route Qty: 100 1RF Rx Instructions: 4x/day ([facility]) pen needle, diabetic [BD Ultra-Fine Carol Pen Needle] 32 gauge x 5/32 needle See Rx Instructions .ROUTE .MEDSUPPLY Qty: 150 5RF Rx Instructions: 4 times daily ([facility]) pen needle, diabetic [BD Ultra-Fine Carol Pen Needle] 32 gauge x 5/32 needle See Rx Instructions .ROUTE .MEDSUPPLY Qty: 50 0RF Rx Instructions: daily ([facility]) insulin syringe-needle U-100 [BD Insulin Syringe Ultra-Fine] 0.3 mL 31 gauge x 5/16 syringe See Rx Instructions .Route Qty: 100 1RF Rx Instructions: tid ([facility]) Dexcom G6 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 Coating Machine 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 Misc See Rx Instructions .Route Qty: 1 0RF Rx Instructions: As directed ([facility]) Omnipod 5 G6-G7 Pods (Gen 5) Cartridge See Rx Instructions .Route Qty: 30 1RF Rx Instructions: change every 3 days amlodipine 5 mg tablet 5 mg PO DAILY Qty: 90 3RF (DME) Dexcom G6 Sensor Device See Rx Instructions .Route Qty: 9 1RF Rx Instructions: 1 sensor q 10 days ([facility]) Dexcom G6 Transmitter Device See Rx Instructions .Route Qty: 1 1RF Rx Instructions: 1 q 90 days Primary Care Provider: Kristal Sullivan Referrals: Kristal Sullivan MD [Primary Care Provider] - Print Language: Dutch What to do if you have Problems For any increased pain, shortness of breath, bleeding, nausea or vomiting, chestpain, or any unexpected problems, contact your Primary Care Provider. Call [facility] ([phone]) or report to the closest Emergency Room. Call 911 if necessary. 08/10/24 4796 <Electronically signed by Jace Rios> Cosigner Signature (if applicable): CC: Dr. Kristal Sullivan MD ~ Signed [facility] Work Phone: [phone] History and physical note [facility] Medical Records Department [address] [place] [address] H&P Exam - Hospitalist 08/10/24 3265 MR#: [id number] Acct: [id number] Name: LAURIE GONZALES Rep #:[id number] : 1980 44 From: Eugenia London DO PCP: Dr. Kristal Sullivan MD Status:ADM I NO Location: [facility] [id number] HPI - General General Date of Admission: 08/10/24 Date of Service: 08/10/24 Chief Complaint: Chest pain HPI Narrative LAURIE GONZALES, is a 44 M who presented to the emergency department at [facility] on 08/10/2024 with a chief complaint of chest pain. Patient has a complex past medical history including type 1 diabetes on an insulin pump and end-stage renal disease on HD. Patient was at dialysis andcompleted dialysis, however, after dialysis he experienced chest pain. He states he started actually with some nausea and vomiting and had resultant chest pain. Amarilis have a history of coronary artery disease with previous stent placement. He stated he did not have chest pain at that time and never really has any chestpain. Since his initial episode he has had ongoing intermittent nausea and vomiting and states that it seems to be correlated with his chest pain. He denies any correlated dyspnea or diaphoresis. Symptoms did not radiate and weresubsternal and seem to radiate from the epigastrium and to the central chest area. Vital signs on presentation showed temperature of 97, heart rate 102, respiratory was 18, blood pressure was initially 151/102 with a repeat of 168/84, and pulse ox was 100% on room air. CBC shows a mild leukocytosis with awhite count 11.5. Hemoglobin was 13.6 with a history of chronic anemia so he does appear to be mildly hemoconcentrated. Neutrophils were 77.5%. Coags were unremarkable. Chemistry showed multiple deviations from normal related to his underlying renal disease. Initial troponin was 211 with a delta of 193 and a 4- hour troponin of 208. Lipase was normal at 25. EKG showed normalsinus rhythm without any ST-T wave changes concerning for acute ischemia. Chest x-ray was unremarkable. CTA of the chest showed no evidence of PE or dissection and demonstrated a 6.5 x 4.7 right hepatic lobe mass that looks consistent with hemangioma and further evaluation with a CT or MRI liver protocol was recommended. [facility] Medical History Insulin dependent diabetes mellitus Diabetes History of renal dialysis History of renal disease Back pain Injury of back Dietary restriction Gastric reflux Non-smoker Leg cramps Cardiology follow-up encounter History of echocardiogram History of heart attack Acute non-ST elevation myocardial infarction (NSTEMI) CKD (chronic kidney disease), stage V Congestive heart failure of unknown etiology Overweight (BMI 25.0-29.9) NSTEMI, initial episode of care Acute kidney injury superimposed on chronic kidney disease Elevated troponin Pre-op testing ESRF (end stage renal failure) Stage 4 chronic kidney disease Diabetes mellitus type 1 Insulin pump titration Presence of insulin pump CKD (chronic kidney disease) Hypertension Obesity Abscess Charcot foot due to diabetes mellitus Type 1 diabetes mellitus Acute kidney injury DKA (diabetic ketoacidoses) DM type 1 (diabetes mellitus, type 1) Home Medications ?Medication ?Instructions ?Recorded ?Last Taken ?Type blood sugar diagnostic (FreeStyle #100 ea 10/08/21 Unk nown Rx Lite Strips) lancing device with lancets kit #100 ea 11/26/21 Unkno wn Rx (OneTouch Delica Plus Lancing Device kit) pen needle, diabetic 32 gauge x #150 ea 02/26/22 Unkno wn Rx 32 (BD Ultra-Fine Carol Pen Needle) aspirin 81 mg tablet,delayed 81 mg PO BREAKFAST #90 ta bs 02/25/24 08/10/24 Rx release clopidogrel 75 mg tablet 75 mg PO DAILY #90 tabs 01/3008/10/24 Rx insulin aspart U-100 100 unit/mL 80 unit (0.8 mL) cont inuous 02/25/24 08/10/24 Rx subcutaneous solution (Novolog subcutaneous infusion . continuous U-100 Insulin aspart) #72 mL metoprolol succinate 25 mg 25 mg PO DAILY #90 tabs 08/10/24 Rx tablet,extended release 24 hr rosuvastatin 10 mg tablet 10 mg PO DAILY #90 tabs 01/3008/10/24 Rx insulin syringe-needle U-100 0.3 #100 ea 03/30/24 Unkn own Rx mL 31 gauge x 5/16 (BD Insulin Syringe Ultra-Fine) pen needle, diabetic 32 gauge x #50 ea 03/30/24 Unknow n Rx 5/32 (BD Ultra-Fine Carol Pen Needle) blood-glucose meter,continuous #1 ea 04/01/24 Unknown Rx (Dexcom G6 Paper Coating Machine Operator) insulin pump cart,auto,BT,G6/7 #30 ea 04/01/24 Unknown Rx (Omnipod 5 G6-G7 Pods (Gen 5) subcutaneous cartridge) amlodipine 5 mg tablet 5 mg PO DAILY #90 tabs 05/1008/10/24 Rx sevelamer carbonate 800 mg tablet 800 mg PO DAILY 05/3008/10/24 History blood-glucose sensor (Dexcom G6 #9 ea 07/23/24 Unknown Rx Sensor device) blood-glucose transmitter (Dexcom #1 ea 07/23/24 Unkno wn Rx G6 Transmitter device) cholecalciferol (vitamin D3) 50 150 mcg PO MOWEFR 07/0108/09/24 History mcg (2,000 unit) capsule loratadine 5 mg-pseudoephedrine ER 1 tab PO Q12H 08/05 Unknown History 120 mg tablet,extended release,12hr (Claritin-D 12 Hour) Allergy/AdvReac Type Severity Reaction Status Date / Time No Known Allergies Allergy Verified 08/10/24 19:36 Family History Mother Diabetes Thyroid disorder Grandmother Diabetes Grandfather Diabetes Surgical History History of cardiac catheterization History of heart surgery Hx of surgical procedure History of coronary artery stent placement History of surgery on lower extremity Social History Smoking Status: Never smoker alcohol intake: never substance use type: does not use ROS Constitutional Constitutional: Denies anorexia, change in weight, chills, fatigue, fever(s), malaise, night sweats, weakness or other Eyes Eyes: Denies blurry vision, change in eye color, change in vision, discharge from eye(s), double vision, erythema, eye pain, loss of vision or other ENT HEENT: Denies abnormal hearing, dysphagia, ear pain, epistaxis, headache(s), hearing loss, nasal congestion, nasal discharge, post nasal drip, sinus pressure, sore throat or other Cardiovascular Cardiovascular: Reports chest pain; Denies claudication, dyspnea on exertion, edema, lightheadedness, orthopnea, palpitations, paroxysmal nocturnal dyspnea, rapid heart rate, syncope or other Respiratory/Chest Respiratory/Chest: Denies cough, dyspnea, excessive phlegm production, hemoptysis, productive cough, shortness of breath at rest, shortness of breath with exertion, wheezing or other Gastrointestinal Gastrointestinal: Reports dyspepsia, nausea and vomiting; Denies abdominal pain,coffee ground emesis, constipation, diarrhea, hematemesis, hematochezia, loose stools, melena or other Genitourinary Genitourinary: Denies burning urination, difficulty urinating, dysuria, hematuria, nocturia, urinary frequency, urinary hesitancy, urinary incontinence,urinary urgency or other Musculoskeletal Musculoskeletal: Reports back pain; Denies arthralgias, joint pain, joint stiffness, joint swelling, myalgias, neck pain or other Neurologic Neurologic: Denies abnormal gait, abnormal speech, confusion, disequilibrium, dizziness, focal weakness, headache(s), numbness, paresthesias, seizure-like activity, seizures, syncope, tingling, tremor(s) or other Psychiatric Psychiatric: Denies anxiety, depression, homicidal ideation, suicidal ideation or other Endocrine Endocrinology: Denies change in body appearance, cold intolerance, excessive sweating, heat intolerance, polydipsia, polyuria or other Hematologic/Lymphatic Hematologic/Lymphatic: Denies anemia, easy bleeding, easy bruising, lymphadenopathy or other Allergic/Immunologic Allergic/Immunologic: Denies rhinitis, hives, eczemia, asthma or other Vital Signs Vital Signs Vital Signs: 08/10/24 19:36 08/10/24 19:49 08/10/24 20:03 Temperature 97 F L Temperature Source Temporal Pulse Rate 102 H Respiratory Rate 18 Respiratory Effort Normal Non-Labored Blood Pressure 151/102 H Blood Pressure Mean 118 Pulse Ox 100 100 Oxygen Delivery Method Room Air Room Air 08/10/24 20:35 08/10/24 21:00 08/10/24 21:56 Temperature Temperature Source Pulse Rate 94 105 H 98 Respiratory Rate 16 18 18 Respiratory Effort Blood Pressure 163/84 H 163/83 H 173/84 H Blood Pressure Mean 110 109 113 Pulse Ox 100 100 100 Oxygen Delivery Method Room Air Room Air Room Air 08/10/24 22:00 08/10/24 23:00 Temperature Temperature Source Pulse Rate 99 102 H Respiratory Rate 16 15 Respiratory Effort Blood Pressure 173/84 H 169/86 H Blood Pressure Mean 113 113 Pulse Ox 100 100 Oxygen Delivery Method Room Air Room Air Weight Weight: 90.2 kg Body Mass Index (BMI) 27.7 Physical Exam Const alert, oriented x3 and well nourished Constitutional Narrative: Overweight, middle-aged, white male, lying in bed and appears uncomfortable but not toxic, nursing at bedside, just had emesis General Appearance: cooperative HEENT normocephalic, head/scalp atraumatic, hearing grossly normal bilaterally and moist oral mucous membranes HEENT Narrative: Mallampati 3, no thrush Eyes EOMs intact bilaterally and conjunctivae normal Eyes Narrative: No scleral icterus Neck supple Neck Narrative: Trachea midline Resp normal respiratory effort, no retractions, no use of accessory muscles and clearto auscultation bilaterally Auscultation: Negative for rales, rhonchi or wheezes Cardio regular rate, regular rhythm, S1 normal heart sound, S2 normal heart sound, no murmurs, no rub, no gallops and no clicks GI normal to inspection, nondistended, normoactive bowel sounds, soft to palpation and non-tender GI Narrative: No tenderness in the abdomen or epigastric area Extremity no clubbing, cyanosis or edema Extremity Narrative: Pedal and radial pulses are 2+ Neuro oriented x3, moves all extremities and no focal motor deficits Speech: speech normal Psych Psych Narrative: Affect is slightly flat but appropriate for the situation, interacts appropriately and eye contact is good Results Lab / Micro Data 08/10/24 19:40 08/10/24 19:40 Labs: Laboratory Results - last 24 hr 08/10/24 19:40: WBC 11.5 H, RBC 4.42 L, Hgb 13.6, Hct 39.0 L, MCV 88.2, MCH 30.8, MCHC 34.9, RDW Std Deviation 41.7, RDW Coeff of Marcella 12.8, Plt Count 359, MPV 9.2, Immature Gran % (Auto) 0.500, Neut % (Auto) 77.5 H, Lymph % (Auto) 12.1L, Bee % (Auto) 8.3, Eos % (Auto) 1.0, Baso % (Auto) 0.6, Absolute Neuts (auto)8.9 H, Absolute Lymphs (auto) 1.39, Nucleated RBC % 0, Sodium 138, Potassium 4.0, Chloride 91 L, Carbon Dioxide 20.8 L, Anion Gap 26 H, BUN 48 H, Creatinine 6.57 H, Estim Creat Clear Calc 15.60 L, Est GFR (MDRD) Non-Af 10 L, BUN/Creatinine Ratio 7.3 L, Glucose 118 H, Calcium 11.0, Troponin T High Sens 211H* 08/10/24 19:46: PT 12.7, INR 0.9, APTT 24.5 08/10/24 21:35: Troponin T Hi Sens 2 Hr 193 H* Imaging Radiology Impression Chest X-Ray 08/10/24 20:05 IMPRESSION: No acute cardiopulmonary abnormality. Reading Location: [id number] Chest CTA 08/10/24 21:35 IMPRESSION: No evidence of pulmonary embolism or acute findings in the thorax. 6.5 x 4.7 cm right hepatic lobe mass. Differential considerations include a hemangioma. Recommend further evaluation with CT or MRI liver protocol. Reading Location: [facility] Assessment & Plan Assessment/Plan (1) Chest pain: (2) Dyspepsia: (3) Elevated troponin: PLAN: Plan Chest pain with troponin elevation - Cardiac enzymes are elevated but mild and fluctuating and in the setting of renal disease the significance of this is unclear - Case was discussed with Dr. Lio Cross from cardiology by the emergency department--> Per discussion with ED physician Dr. Cross recommended obtaining a pharmacological stress test after reviewing his previous cardiac catheterization - Previous cardiac catheterization did show that his vessels were small that were not amenable to intervention -A.m. stress test ordered and if positive for ischemia cardiac consultation -Heparin drip not recommended at this time by cardiology - Check lipid panel - Check hemoglobin A1c - Continue Plavix - Continue aspirin - Continue metoprolol - Continue home statin - Significance of troponin elevation in the setting of CKD on dialysis is unclear Dyspepsia - GI cocktail given - Reevaluate tomorrow - Chest pain seems more consistent with dyspepsia however with his history it isprudent to rule outcardiac involvement Leukocytosis - Suspect either hemoconcentrated with nausea vomiting and/or reactive - Repeat in a.m. Liver mass - 6.5 x 4.7 cm right hepatic lobe mass - Differential included hemangioma - Recommend outpatient CT or MRI with liver protocol - Patient will need outpatient follow-up - Check a.m. liver enzymes End-stage renal disease - HD dependent - Consult nephrology - Normal dialysis days are MWF - Continue sevelamer History of chronic anemia secondary to renal disease - Patient currently not anemic - Monitor CBC DM-1 - Continue insulin pump - Pump auto regulates blood sugar - Continue outpatient follow-up with endocrinology - Check hemoglobin A1c CAD/essential hypertension/hyperlipidemia -Previous PCI to LAD - Last echocardiogram from 01/23/2024 showed EF of 60% with mild apical hypokinesis and mild mitralvalve insufficiency but was otherwise unremarkable -Continue home metoprolol -Continue home amlodipine - Continue home rosuvastatin - Continue home aspirin and Plavix Secondary hyperparathyroidism - Continue home sevelamer Vitamin D deficiency - Continue vitamin D supplementation DVT prophylaxis - Subcu heparin 3 times daily CODE STATUS - Full code Charges/Coding Visit Charges Inpatient E&M: 06977 Init Hosp L2 08/11/24 0121 Cosigner Signature (if applicable): CC: Dr. Kristal Sullivan MD; Dr. Eugenia London DO~ Signed [facility]05-13-2025 Discharge summary [facility] Medical Records Department [address] [place] [id number] Emergency Department Summary 08/10/24 MR#: [id number] Acct: [id number] Name: LAURIE GONZALES Rep #:[id number] : 1980 44 From: Jace Rios PCP: Dr. Kristal Sullivan MD Status:REG E R Location: ED HPI History of Present Illness Chief Complaint: Chest Pain Informant: patient Narrative Narrative: Presents with chest pain starting yesterday around 6 PM after dialysis. States pain started his back then moved to the front stating sharp in nature made him nauseated. He states similar presentationlast December when he had his heart attack requiring 1 stent in his LAD. He is currently on aspirin and Plavix he took today's dose. He had pain throughout the night. Currently pain is subsided. He does make urine. He states diabetes history age of 18 on insulin. He had chronic kidney disease at that time. He states with his heart attack and receiving IV dye he went into renal failure starting dialysis. He is followed by Dr. Diaz. He had dialysis whole course yesterday. He is unaware of any other coronary lesions. He does not smoke. No recent travel or surgeries. Denies family history of MIsat a young age. Prior Similar Symptoms: Yes and With Prior HI CVD Risk Factors: Positive for Hypertension, Diabetes and Hypercholesterolemia; Negative for FamilyHistory 1' PE Risk Factors: Negative for Recent Travel/Surgery, Recent Immobilization or Prior DVT or PE [facility] Medical History Insulin dependent diabetes mellitus Diabetes History of renal dialysis History of renal disease Back pain Injury of back Dietary restriction Gastric reflux Non-smoker Leg cramps Cardiology follow-up encounter History of echocardiogram History of heart attack Acute non-ST elevation myocardial infarction (NSTEMI) CKD (chronic kidney disease), stage V Congestive heart failure of unknown etiology Overweight (BMI 25.0-29.9) NSTEMI, initial episode of care Acute kidney injury superimposed on chronic kidney disease Elevated troponin Pre-op testing ESRF (end stage renal failure) Stage 4 chronic kidney disease Diabetes mellitus type 1 Insulin pump titration Presence of insulin pump CKD (chronic kidney disease) Hypertension Obesity Abscess Charcot foot due to diabetes mellitus Type 1 diabetes mellitus Acute kidney injury DKA (diabetic ketoacidoses) DM type 1 (diabetes mellitus, type 1) Home Medications ?Medication ?Instructions ?Recorded ?Last Taken ?Type blood sugar diagnostic ([employer] - [employer] a Man[employer]yle #100 ea 10/08/21 Unk nown Rx Lite Strips) lancing device with lancets kit #100 ea 11/26/21 Unkno wn Rx (Docphinuch Delica Plus Lancing Device kit) pen needle, diabetic 32 gauge x #150 ea 02/26/22 Unkno wn Rx 5/32 (BD Ultra-Fine Carol Pen Needle) aspirin 81 mg tablet,delayed 81 mg PO BREAKFAST #90 ta bs 02/25/24 08/10/24 Rx release clopidogrel 75 mg tablet 75 mg PO DAILY #90 tabs 01/3008/10/24 Rx insulin aspart U-100 100 unit/mL 80 unit (0.8 mL) cont inuous 02/25/24 08/10/24 Rx subcutaneous solution (Novolog subcutaneous infusion . continuous U-100 Insulin aspart) #72 mL metoprolol succinate 25 mg 25 mg PO DAILY #90 tabs 08/10/24 Rx tablet,extended release 24 hr rosuvastatin 10 mg tablet 10 mg PO DAILY #90 tabs 01/3008/10/24 Rx insulin syringe-needle U-100 0.3 #100 ea 03/30/24 Unkn own Rx mL 31 gauge x 5/16 (BD Insulin Syringe Ultra-Fine) pen needle, diabetic 32 gauge x #50 ea 03/30/24 Unknow n Rx 5/32 (BD Ultra-Fine Carol Pen Needle) blood-glucose meter,continuous #1 ea 04/01/24 Unknown Rx (Dexcom G6 Paper Coating Machine Operator) insulin pump cart,auto,BT,G6/7 #30 ea 04/01/24 Unknown Rx (Omnipod 5 G6-G7 Pods (Gen 5) subcutaneous cartridge) amlodipine 5 mg tablet 5 mg PO DAILY #90 tabs 05/1008/10/24 Rx sevelamer carbonate 800 mg tablet 800 mg PO DAILY 05/3008/10/24 History blood-glucose sensor (Dexcom G6 #9 ea 07/23/24 Unknown Rx Sensor device) blood-glucose transmitter (Dexcom #1 ea 07/23/24 Unkno wn Rx G6 Transmitter device) cholecalciferol (vitamin D3) 50 150 mcg PO MOWEFR 07/0108/09/24 History mcg (2,000 unit) capsule loratadine 5 mg-pseudoephedrine ER 1 tab PO Q12H 08/05 Unknown History 120 mg tablet,extended release,12hr (Claritin-D 12 Hour) Allergy/AdvReac Type Severity Reaction Status Date / Time No Known Allergies Allergy Verified 08/10/24 19:36 Family History Mother Diabetes Thyroid disorder Grandmother Diabetes Grandfather Diabetes Surgical History History of cardiac catheterization History of heart surgery Hx of surgical procedure History of coronary artery stent placement History of surgery on lower extremity Social History Smoking Status: Never smoker alcohol intake: never substance use type: does not use ROS ROS ED Constitutional Constitutional ED: Denies chills, fever(s) or sweats ENT ENT ED: Denies sore throat Cardiovascular Cardiovascular: Reports chest pain; Denies leg edema, palpitations or racing heartbeat Respiratory/Chest Respiratory/Chest: Denies cough, dyspnea or dyspnea on exertion Gastrointestinal Gastrointestinal: Denies abdominal pain, diarrhea, nausea or vomiting Genitourinary Genitourinary ED: Denies dysuria, hematuria or urinary frequency Musculoskeletal Musculoskeletal: Reports back pain; Denies extremity pain or neck pain Integumentary Denies rash or wounds Neurologic Neurologic: Denies headache(s), paresthesias or weakness EXAM Physical Exam Const Vital Signs: 08/10/24 19:36 08/10/24 19:49 08/10/24 20:03 Temperature 97 F L Temperature Source Temporal Pulse Rate 102 H Respiratory Rate 18 Respiratory Effort Normal Non-Labored Blood Pressure 151/102 H Blood Pressure Mean 118 Pulse Ox 100 100 Oxygen Delivery Method Room Air Room Air 08/10/24 20:35 08/10/24 21:00 08/10/24 21:56 Temperature Temperature Source Pulse Rate 94 105 H 98 Respiratory Rate 16 18 18 Respiratory Effort Blood Pressure 163/84 H 163/83 H 173/84 H Blood Pressure Mean 110 109 113 Pulse Ox 100 100 100 Oxygen Delivery Method Room Air Room Air Room Air 08/10/24 22:00 08/10/24 23:00 08/10/24 23:50 Temperature 98.3 F Temperature Source Pulse Rate 99 102 H 108 H Respiratory Rate 16 15 19 H Respiratory Effort Blood Pressure 173/84 H 169/86 H 164/96 H Blood Pressure Mean 113 113 118 Pulse Ox 100 100 100 Oxygen Delivery Method Room Air Room Air Positive well nourished and well developed General Appearance ED: well developed and NAD HEENT Reports moist mucous membranes normocephalic and atraumatic Eyes General Eye ED: Yes normal appearance of both eyes Neck full ROM Chest Wall Chest: Negative for tenderness Resp normal respiratory effort and normal air movement Effort and Inspection: symmetric chest movement; Negative for respiratory distress Cardio regular rate, regular rhythm and no murmurs Peripheral Pulses: pulses 2+ throughout GI normal to inspection, nondistended, normoactive bowel sounds and non-tender Palpation: Negative for guarding or rebound tenderness present Extremity normal to inspection General Extremety ED: Negative for edema or tenderness General Extremity: Negative for edema Neuro oriented x3 and no sensory deficits noted Sensorium / Orientation: awake and alert Skin no rashes or lesions noted and no wounds Heart Score History: Moderately Suspicious ECG: Normal Age: Risk Factors: >/= 3 Risk Factors or History of CAD Troponin: >/=3 x Normal Limit Score: 5 MDM MDM MDM Narrative Medical decision making narrative: Interventions / MDM: Differential diagnosis: chest pain, end-stage renal disease on hemodialysis, history of coronary disease Diagnosis considered but do not suspect: Aortic dissection however CT negative. My EKG interpretation: Sinus rate of 100, no ST changes, isolated T wave inversion in aVL. QTc of 497. Imaging independently reviewed and interpreted by myself: 2 view chest x-ray. No acute process right chest wall Vas-Cath. CT angiogram chest: No PE or dissection. hemangioma of the liver noted. External documents reviewed: Cardiac cath December 2023: Coronary angiography; 1. Left main is normal angiographically calcified with extension of calcification into LAD. The left main coronary artery bifurcates into LAD and left circumflex 2. The left anterior descending artery had diffuse atherosclerosis of around 70% involving the mid LAD after the first septal branch. There was a fairly diagonal had diffuse atherosclerosis of around 70 the second diagonal also is a small but have a diffuse atherosclerosis 70-80. The LAD in the distal portion has no significant atherosclerosis 3. The left circumflex is moderate in size second OM branch had mid and the distal diffuse atherosclerosis of around 60% 4. RCA is large dominant with distal RCA had around 50% The bifurcation of the PDA and the posterolateral branch has a diffuse atherosclerosis. CAD in conclusion this patient has with diabetes renal insufficiency diffuse coronary artery atherosclerosis with successful PCI of the culprit lesion for non-ST elevation HI which is a diffuse left anterior descending artery. Test considered but not ordered:N/A ED course: Patient currently chest pain-free EKG with no acute findings. Patient presenting similarsymptoms led to his heart attack this past December however states his pain was worse. He took his aspirin and Plavix today. Cardiac workup initiated. Chest x-ray ordered. 2119: Review of records he had multivessel disease culprit was the mid LAD at 70%. Troponin returned at 211. 2129: Reported from nursing patient had recurrent pain in his chest and vomited once. Order for repeat EKG. 2130: Repeat EKG unchanged. Symptoms subsiding. I reviewed records as he initially reported the similar symptoms from his hospitalization in December. Apparently was admitted for DKA at that time withvague symptoms leading to troponin 2199 then cardiology involvement for the catheterization. Since y reporting pain in his back and sharp pain in his chest. I did discusswith him with his symptoms should rule out aortic dissection prior to starting heparin. He is on dialysis with next treatment tomorrow. I will order CT angioof the chest for dissection rule out prior to starting heparin. 2249: CT angiogram negative for dissection however notes right hepatic lobe massof 6.5 cm with morelikely consideration of hemangioma. Currently symptom- free. I spoke with on-call dry kiln loader Dr. Cross discussed his history his cath findings, he discussed that his vessels are small vessels that are not amenable to intervention. He states with his cardiac enzymes trending down and his symptoms are over 24 hours he would not recommend heparinizing at this time. Herecommends admission for pharmacological stress test and if positive for cardiology to be involved for further workup otherwise plan for outpatient follow-up with cardiology team. I will speak with hospitalist service for admission. I spoke with Dr. Anika London for admission to PCU. 0: Per nursing patient another bout of emesis and chest discomfort. QTc 497. IV Reglan and IV morphine ordered for symptom control. Re-evaluation: stable Disposition discussed with patient/family/significant other: Patient and ex significant other Case discussed with consulting clinician: Cardiology, hospitalist This note was generated with Dragon dictation software. It may contain incorrectwords, spelling, and punctuation that were not noted in checking the note beforesigning. Lab Data Attestation: I reviewed the patient's lab results. Labs: Laboratory Results - last 24 hr 08/10/24 08/10/24 08/10/24 19:40 19:46 21:35 WBC 11.5 H RBC 4.42 L Hgb 13.6 Hct 39.0 L MCV 88.2 MCH 30.8 MCHC 34.9 RDW Std Deviation 41.7 RDW Coeff of Marcella 12.8 Plt Count 359 MPV 9.2 Immature Gran % (Auto) 0.500 Neut % (Auto) 77.5 H Lymph % (Auto) 12.1 L Bee % (Auto) 8.3 Eos % (Auto) 1.0 Baso % (Auto) 0.6 Absolute Neuts (auto) 8.9 H Absolute Lymphs (auto) 1.39 Nucleated RBC % 0 PT 12.7 INR 0.9 APTT 24.5 Sodium 138 Potassium 4.0 Chloride 91 L Carbon Dioxide 20.8 L Anion Gap 26 H BUN 48 H Creatinine 6.57 H Estim Creat Clear Calc 15.60 L Est GFR (MDRD) Non-Af 10 L BUN/Creatinine Ratio 7.3 L Glucose 118 H Calcium 11.0 Troponin T High Sens 211 H* Troponin T Hi Sens 2 Hr 193 H* Radiography Diagnostic Testing: Clinical Impression(s) from Imaging Studies Chest X-Ray 08/10/24 20:05 IMPRESSION: No acute cardiopulmonary abnormality. Reading Location: [id number] Chest CTA 08/10/24 21:35 IMPRESSION: No evidence of pulmonary embolism or acute findings in the thorax. 6.5 x 4.7 cm right hepatic lobe mass. Differential considerations include a hemangioma. Recommend further evaluation with CT or MRI liver protocol. Reading Location[facility] Dis[facility] Triage Chief Complaint: Chest Pain ED Provider: Jace Yanes Dx/Rx/DC Orders Prescriptions: No Action (DME) FreeStyle Lite Strips Strip See Rx Instructions .Route Qty: 100 6RF Rx Instructions: 3x/day clopidogrel 75 mg tablet 75 mg PO DAILY Qty: 90 3RF metoprolol succinate 25 mg tablet extended release 24 hr 25 mg PO DAILY Qty: 90 3RF aspirin 81 mg tablet,delayed release (DR/EC) 81 mg PO BREAKFAST Qty: 90 3RF insulin aspart U-100 [Novolog U-100 Insulin aspart] 100 unit/mL solution 80 unit continuous subcutaneous infusion .continuous Qty: 72 1RF rosuvastatin 10 mg tablet 10 mg PO DAILY Qty: 90 1RF cholecalciferol (vitamin D3) 50 mcg (2,000 unit) capsule 150 mcg PO MOWEFR sevelamer carbonate 800 mg tablet 800 mg PO DAILY Rx Instructions: must administer with a meal/food Claritin-D 12 Hour 5-120 mg tablet extended release 12 hr 1 tab PO Q12H (DME) lancing device with lancets [[employer] Plus Lanc Dev] Kit See Rx Instructions .Route Qty: 100 1RF Rx Instructions: 4x/day (DME) pen needle, diabetic [BD Ultra-Fine Carol Pen Needle] 32 gauge x 5/32 needle See Rx Instructions .ROUTE .MEDSUPPLY Qty: 150 5RF Rx Instructions: 4 times daily (DME) pen needle, diabetic [BD Ultra-Fine Carol Pen Needle] 32 gauge x 5/32 needle See Rx Instructions .ROUTE .MEDSUPPLY Qty: 50 0RF Rx Instructions: daily (DME) insulin syringe-needle U-100 [BD Insulin Syringe Ultra-Fine] 0.3 mL 31 gauge x 5/16 syringe See Rx Instructions .Route Qty: 100 1RF Rx Instructions: tid (DME) Dexcom G6 Paper Coating Machine Operator Misc See Rx Instructions .Route Qty: 1 0RF Rx Instructions: As directed ([facility]) Omnipod 5 G6-G7 Pods (Gen 5) Cartridge See Rx Instructions .Route Qty: 30 1RF Rx Instructions: change every 3 days amlodipine 5 mg tablet 5 mg PO DAILY Qty: 90 3RF (DME) Dexcom G6 Sensor Device See Rx Instructions .Route Qty: 9 1RF Rx Instructions: 1 sensor q 10 days (DME) Dexcom G6 Transmitter Device See Rx Instructions .Route Qty: 1 1RF Rx Instructions: 1 q 90 days Primary Care Provider: Kristal Sullivan Referrals: Kristal Sullivan MD [Primary Care Provider] - Print Language: Dutch What to do if you have Problems For any increased pain, shortness of breath, bleeding, nausea or vomiting, chestpain, or any unexpected problems, contact your Primary Care Provider. Call [facility] ([phone]) or report tothe closest Emergency Room. Call 911 if necessary. 08/10/24 [id number] Cosigner Signature (if applicable): CC: Dr. Kristal Sullivan MD ~ Signed [facility]05-13-2025 Radiology Diagnostic study note [facility] Imaging Services [address] [place] [address] CTA Chest W/WO Contrast MR#: [id number] Acct: [id number] Name: LAURIE GONZALES Rep #: [id number] : 1980 M 44 From: Eboni Becerra MD PCP: Dr. Kristal Sullivan MD Status: REG E R Study:CTA Chest W/WO Contrast Date of Exam: 08/10/24 Exam# [id number] Ordering Dr: Jace Yanes DO PROCEDURE: CTA CHEST W/WO CONTRAST 08/10/2024 REASON FOR EXAM: CHEST PAIN TECHNIQUE: CTA axial imaging of the chest with intravenous contrast. Multiplanar and multisequence images wereobtained. PATIENT PREPARATION: Per protocol One or more dose reduction techniques were used (e.g., Automated exposure control, adjustment of the mA and/or kV according to patient size, use of iterative reconstruction technique). CONTRAST: Omnipaque 350 VOLUME: 100 mL Not Provided Gauge IV COMPARISON: Chest radiograph 08/10/2024 FINDINGS: Hardware: None Lymph nodes: No suspicious adenopathy. Heart: No cardiomegaly. No pericardial effusion. Status post coronary stent. Mild atherosclerotic calcification otherwise. Thoracic Aorta: No thoracic aortic aneurysm or dissection. Pulmonary Vessels: No large central pulmonary emboli are identified. Contrast timing is suboptimal for evaluation of more distal branches. Most Proximal Level of Embolus (if embolus present): None Lungs and Airways: Central airways are patent without endobronchial lesions. Nosuspicious pulmonarynodule. No focal consolidation. No pneumothorax. No pleural effusion. Upper Abdomen: 6.5 x 4.7 cm heterogeneously enhancing right hepatic lobe mass (series 2, image 92). Bones: Bone windows are unremarkable. Soft tissue/mediastinum: Thyroid gland is unremarkable. Esophagus is nondilated. Bilateral gynecomastia. CT/CTA Chest W/WO Contrast IMPRESSION: No evidence of pulmonary embolism or acute findings in the thorax. 6.5 x 4.7 cm right hepatic lobe mass. Differential considerations include a hemangioma. Recommend further evaluation with CT or MRI liver protocol. Reading Location: [facility] CC: Dr. Kristal Sullivan MD; Dr. Jace Yanes DO ~ Imcu Specialist: Signed [facility]05-13-2025 Radiology Diagnostic study note [facility] Imaging Services [address], [place] [id number] Chest PA and Lateral MR#: [id number] Acct: [id number] Name: LAURIE GONZALES Rep #: [id number] : 1980 M 44 From: Heather Brown MD PCP: Dr. Kristal Sullivan MD Status: REG E R Study:Chest PA and Lateral Date of Exam: 08/10/24 Exam# [id number] Ordering Dr: Jace Yanes DO PROCEDURE: CHEST PA AND LATERAL 08/10/2024 REASON FOR EXAM: CHEST PAIN TECHNIQUE: Frontal and lateral views of the chest. COMPARISON: Chest radiographs 01/30/2024 and 01/25/2024 FINDINGS: Hardware: Right-sided catheter, with tip in unchanged position near the superiorcavoatrial junction. Heart: The heart size is normal. Mediastinum: The mediastinal contour is unremarkable. Lungs: The lungs are clear. Bones: The bones are unremarkable. RAD/Chest PA and Lateral IMPRESSION: No acute cardiopulmonary abnormality. Reading Location: [facility] CC: Dr. Kristal Sullivan MD; Dr. Jace Yanes DO ~ Imcu Specialist: Signed [facility]05-13-2025 Telephone encounter Note* Telephone Encounter - Kristal Sullivan MD - 08/10/2024 4:56 PM EDT Patient called and requested zofran refill for her nausea. Regards, Kristal Sullivan MD [facility]05-13-2025 Miscellaneous Notes* Telephone Encounter - Kristal Sullivan MD - 08/10/2024 4:56 PM EDT Patient called and requested zofran refill for her nausea. Regards, Kristal Sullivan MD [facility] Discharge summary Author Jace Yanes [facility] Note Date/Time August 10, 2024 11:53 pm [facility] Medical Records Department [address] [place] [address] Emergency Department Summary 08/10/24 MR#: [id number] Acct: [id number] Name: LAURIE GONZALES Rep #:[id number] : 1980 44 From: Jace Rios PCP: Dr. Kristal Sullivan MD Status:REG E R Location: ED HPI History of Present Illness Chief Complaint: Chest Pain Informant: patient Narrative Narrative: Presents with chest pain starting yesterday around 6 PM after dialysis. States pain started his back then moved to the front stating sharp in nature made him nauseated. He states similar presentation last December when he had his heart attack requiring 1 stent in his LAD. He is currently on aspirin and Plavix he took today's dose. He had pain throughout the night. Currently pain is subsided. He does make urine. He states diabetes history age of 18 on insulin. He had chronic kidney disease at that time. He states with his heart attack and receiving IV dye he went into renal failure starting dialysis. He is followed by Dr. Diaz. He had dialysis whole course yesterday. He is unaware of any other coronary lesions. He does not smoke. No recent travel or surgeries. Denies family history of MIs at a young age. Prior Similar Symptoms: Yes and With Prior HI CVD Risk Factors: Positive for Hypertension, Diabetes and Hypercholesterolemia; Negative for Family History 1' </=55 or Smoking PE Risk Factors: Negative for Recent Travel/Surgery, Recent Immobilization or Prior DVT or [facility] History Insulin dependent diabetes mellitus Diabetes History of renal dialysis History of renal disease Back pain Injury of back Dietary restriction Gastric reflux Non-smoker Leg cramps Cardiology follow-up encounter History of echocardiogram History of heart attack Acute non-ST elevation myocardial infarction (NSTEMI) CKD (chronic kidney disease), stage V Congestive heart failure of unknown etiology Overweight (BMI 25.0-29.9) NSTEMI, initial episode of care Acute kidney injury superimposed on chronic kidney disease Elevated troponin Pre-op testing ESRF (end stage renal failure) Stage 4 chronic kidney disease Diabetes mellitus type 1 Insulin pump titration Presence of insulin pump CKD (chronic kidney disease) Hypertension Obesity Abscess Charcot foot due to diabetes mellitus Type 1 diabetes mellitus Acute kidney injury DKA (diabetic ketoacidoses) DM type 1 (diabetes mellitus, type 1) Home Medications ?Medication ?Instructions ?Recorded ?Last Taken ?Type blood sugar diagnostic (FreeStyle #100 ea 10/08/21 Unk nown Rx Lite Strips) lancing device with lancets kit #100 ea 11/26/21 Unkno wn Rx (OneTouch [employer] Plus Lancing Device kit) pen needle, diabetic 32 gauge x #150 ea 02/26/22 Unkno wn Rx (BD Ultra-Fine Carol Pen Needle) aspirin 81 mg tablet,delayed 81 mg PO BREAKFAST #90 ta bs 02/25/24 08/10/24 Rx release clopidogrel 75 mg tablet 75 mg PO DAILY #90 tabs 01/3008/10/24 Rx insulin aspart U-100 100 unit/mL 80 unit (0.8 mL) cont inuous 02/25/24 08/10/24 Rx subcutaneous solution (Novolog subcutaneous infusion . continuous U-100 Insulin aspart) #72 mL metoprolol succinate 25 mg 25 mg PO DAILY #90 tabs 08/10/24 Rx tablet,extended release 24 hr rosuvastatin 10 mg tablet 10 mg PO DAILY #90 tabs 01/3008/10/24 Rx insulin syringe-needle U-100 0.3 #100 ea 03/30/24 Unkn own Rx mL 31 gauge x 5/16 (BD Insulin Syringe Ultra-Fine) pen needle, diabetic 32 gauge x #50 ea 03/30/24 Unknow n Rx (BD Ultra-Fine Carol Pen Needle) blood-glucose meter,continuous #1 ea 04/01/24 Unknown Rx (Dexcom G6 Paper Coating Machine Operator) insulin pump cart,auto,BT,G6/7 #30 ea 04/01/24 Unknown Rx (Omnipod 5 G6-G7 Pods (Gen 5) subcutaneous cartridge) amlodipine 5 mg tablet 5 mg PO DAILY #90 tabs 05/1008/10/24 Rx sevelamer carbonate 800 mg tablet 800 mg PO DAILY 05/3008/10/24 History blood-glucose sensor (Dexcom G6 #9 ea 07/23/24 Unknown Rx Sensor device) blood-glucose transmitter (Dexcom #1 ea 07/23/24 Unkno wn Rx G6 Transmitter device) cholecalciferol (vitamin D3) 50 150 mcg PO MOWEFR 07/0108/09/24 History mcg (2,000 unit) capsule loratadine 5 mg-pseudoephedrine ER 1 tab PO Q12H 08/05 Unknown History 120 mg tablet,extended release,12hr (Claritin-D 12 Hour) Allergy/AdvReac Type Severity Reaction Status Date / Time No Known Allergies Allergy Verified 08/10/24 19:36 Family History Mother Diabetes Thyroid disorder Grandmother Diabetes Grandfather Diabetes Surgical History History of cardiac catheterization History of heart surgery Hx of surgical procedure History of coronary artery stent placement History of surgery on lower extremity Social History Smoking Status: Never smoker alcohol intake: never substance use type: does not use ROS ROS ED Constitutional Constitutional ED: Denies chills, fever(s) or sweats ENT ENT ED: Denies sore throat Cardiovascular Cardiovascular: Reports chest pain; Denies leg edema, palpitations or racing heartbeat Respiratory/Chest Respiratory/Chest: Denies cough, dyspnea or dyspnea on exertion Gastrointestinal Gastrointestinal: Denies abdominal pain, diarrhea, nausea or vomiting Genitourinary Genitourinary ED: Denies dysuria, hematuria or urinary frequency Musculoskeletal Musculoskeletal: Reports back pain; Denies extremity pain or neck pain Integumentary Denies rash or wounds Neurologic Neurologic: Denies headache(s), paresthesias or weakness EXAM Physical Exam Const Vital Signs: 08/10/24 19:36 08/10/24 19:49 08/10/24 20:03 Temperature 97 F L Temperature Source Temporal Pulse Rate 102 H Respiratory Rate 18 Respiratory Effort Normal Non-Labored Blood Pressure 151/102 H Blood Pressure Mean 118 Pulse Ox 100 100 Oxygen Delivery Method Room Air Room Air 08/10/24 20:35 08/10/24 21:00 08/10/24 21:56 Temperature Temperature Source Pulse Rate 94 105 H 98 Respiratory Rate 16 18 18 Respiratory Effort Blood Pressure 163/84 H 163/83 H 173/84 H Blood Pressure Mean 110 109 113 Pulse Ox 100 100 100 Oxygen Delivery Method Room Air Room Air Room Air 08/10/24 22:00 08/10/24 23:00 08/10/24 23:50 Temperature 98.3 F Temperature Source Pulse Rate 99 102 H 108 H Respiratory Rate 16 15 19 H Respiratory Effort Blood Pressure 173/84 H 169/86 H 164/96 H Blood Pressure Mean 113 113 118 Pulse Ox 100 100 100 Oxygen Delivery Method Room Air Room Air Positive well nourished and well developed General Appearance ED: well developed and NAD HEENT Reports moist mucous membranes normocephalic and atraumatic Eyes General Eye ED: Yes normal appearance of both eyes Neck full ROM Chest Wall Chest: Negative for tenderness Resp normal respiratory effort and normal air movement Effort and Inspection: symmetric chest movement; Negative for respiratory distress Cardio regular rate, regular rhythm and no murmurs Peripheral Pulses: pulses 2+ throughout GI normal to inspection, nondistended, normoactive bowel sounds and non-tender Palpation: Negative for guarding or rebound tenderness present Extremity normal to inspection General Extremety ED: Negative for edema or tenderness General Extremity: Negative for edema Neuro oriented x3 and no sensory deficits noted Sensorium / Orientation: awake and alert Skin no rashes or lesions noted and no wounds Heart Score History: Moderately Suspicious ECG: Normal Age: </= 45 years Risk Factors: >/= 3 Risk Factors or History of CAD Troponin: >/=3 x Normal Limit Score: 5 MDM MDM MDM Narrative Medical decision making narrative: Interventions / MDM: Differential diagnosis: chest pain, end-stage renal disease on hemodialysis, history of coronary disease Diagnosis considered but do not suspect: Aortic dissection however CT negative. My EKG interpretation: Sinus rate of 100, no ST changes, isolated T wave inversion in aVL. QTc of 497. Imaging independently reviewed and interpreted by myself: 2 view chest x-ray. No acute process right chest wall Vas-Cath. CT angiogram chest: No PE or dissection. hemangioma of the liver noted. External documents reviewed: Cardiac cath December 2023: Coronary angiography; 1. Left main is normal angiographically calcified with extension of calcification into LAD. The left main coronary artery bifurcates into LAD and left circumflex 2. The left anterior descending artery had diffuse atherosclerosis of around 70% involving the mid LAD after the first septal branch. There was a fairly diagonal had diffuse atherosclerosis of around 70 the second diagonal also is a small but have a diffuse atherosclerosis 70-80. The LAD in the distal portion has no significant atherosclerosis 3. The left circumflex is moderate in size second OM branch had mid and the distal diffuse atherosclerosis of around 60% 4. RCA is large dominant with distal RCA had around 50% The bifurcation of the PDA and the posterolateral branch has a diffuse atherosclerosis. CAD in conclusion this patient has with diabetes renal insufficiency diffuse coronary artery atherosclerosis with successful PCI of the culprit lesion for non-ST elevation HI which is a diffuse left anterior descending artery. Test considered but not ordered:N/A ED course: Patient currently chest pain-free EKG with no acute findings. Patient presenting similar symptoms led to his heart attack this past December however states his pain was worse. He took his aspirin and Plavix today. Cardiac workup initiated. Chest x-ray ordered. 2119: Review of records he had multivessel disease culprit was the mid LAD at 70%. Troponin returned at 211. 2129: Reported from nursing patient had recurrent pain in his chest and vomited once. Order for repeat EKG. 2130: Repeat EKG unchanged. Symptoms subsiding. I reviewed records as he initially reported the similar symptoms from his hospitalization in December. Apparently was admitted for DKA at that time with vague symptoms leading to troponin 2199 then cardiology involvement for the catheterization. Since yesterday reporting pain in his back and sharp pain in his chest. I did discusswith him with his symptoms should rule out aortic dissection prior to starting heparin. He is on dialysis with next treatment tomorrow. I will order CT angioof the chest for dissection rule out prior to starting heparin. 2249: CT angiogram negative for dissection however notes right hepatic lobe massof 6.5 cm with more likely consideration of hemangioma. Currently symptom-free. I spoke with on-call dry kiln loader Dr. Cross discussed his history his cath findings, he discussed that his vessels are small vessels that are not amenable to intervention. He states with his cardiac enzymes trending down and his symptoms are over 24 hours he would not recommend heparinizing at this time. Herecommends admission for pharmacological stress test and if positive for cardiology to be involved for further workup otherwise plan for outpatient follow-up with cardiology team. I will speak with hospitalist service for admission. I spoke with Dr. Anika London for admission to PCU. 2340: Per nursing patient another bout of emesis and chest discomfort. QTc 497. IV Reglan and IV morphine ordered for symptom control. Re-evaluation: stable Disposition discussed with patient/family/significant other: Patient and ex significant other Case discussed with consulting clinician: Cardiology, hospitalist This note was generated with [employer] dictation software. It may contain incorrectwords, spelling, and punctuation that were not noted in checking the note beforesigning. Lab Data Attestation: I reviewed the patient's lab results. Labs: Laboratory Results - last 24 hr 08/10/24 08/10/24 08/10/24 19:40 19:46 21:35 WBC 11.5 H RBC 4.42 L Hgb 13.6 Hct 39.0 L MCV 88.2 MCH 30.8 MCHC 34.9 RDW Std Deviation 41.7 RDW Coeff of Marcella 12.8 Plt Count 359 MPV 9.2 Immature Gran % (Auto) 0.500 Neut % (Auto) 77.5 H Lymph % (Auto) 12.1 L Bee % (Auto) 8.3 Eos % (Auto) 1.0 Baso % (Auto) 0.6 Absolute Neuts (auto) 8.9 H Absolute Lymphs (auto) 1.39 Nucleated RBC % 0 PT 12.7 INR 0.9 APTT 24.5 Sodium 138 Potassium 4.0 Chloride 91 L Carbon Dioxide 20.8 L Anion Gap 26 H BUN 48 H Creatinine 6.57 H Estim Creat Clear Calc 15.60 L Est GFR (MDRD) Non-Af 10 L BUN/Creatinine Ratio 7.3 L Glucose 118 H Calcium 11.0 Troponin T High Sens 211 H* Troponin T Hi Sens 2 Hr 193 H* Radiography Diagnostic Testing: Clinical Impression(s) from Imaging Studies Chest X-Ray 08/10/24 20:05 IMPRESSION: No acute cardiopulmonary abnormality. Reading Location: [id number] Chest CTA 08/10/24 21:35 IMPRESSION: No evidence of pulmonary embolism or acute findings in the thorax. 6.5 x 4.7 cm right hepatic lobe mass. Differential considerations include a hemangioma. Recommend further evaluation with CT or MRI liver protocol. Reading [facility] Dis[facility] Plan Triage Chief Complaint: Chest Pain ED Provider: Jace Yanes Dx/Rx/DC Orders Prescriptions: No Action (DME) FreeStyle Lite Strips Strip See Rx Instructions .Route Qty: 100 6RF Rx Instructions: 3x/day clopidogrel 75 mg tablet 75 mg PO DAILY Qty: 90 3RF metoprolol succinate 25 mg tablet extended release 24 hr 25 mg PO DAILY Qty: 90 3RF aspirin 81 mg tablet,delayed release (DR/EC) 81 mg PO BREAKFAST Qty: 90 3RF insulin aspart U-100 [Novolog U-100 Insulin aspart] 100 unit/mL solution 80 unit continuous subcutaneous infusion .continuous Qty: 72 1RF rosuvastatin 10 mg tablet 10 mg PO DAILY Qty: 90 1RF cholecalciferol (vitamin D3) 50 mcg (2,000 unit) capsule 150 mcg PO MOWEFR sevelamer carbonate 800 mg tablet 800 mg PO DAILY Rx Instructions: must administer with a meal/food Claritin-D 12 Hour 5-120 mg tablet extended release 12 hr 1 tab PO Q12H (DME) lancing device with lancets [[employer] EndeavorsTouch Delica Plus Lanc Dev] Kit See Rx Instructions .Route Qty: 100 1RF Rx Instructions: 4x/day (DME) pen needle, diabetic [BD Ultra-Fine Carol Pen Needle] 32 gauge x 5/32 needle See Rx Instructions .ROUTE .MEDSUPPLY Qty: 150 5RF Rx Instructions: 4 times daily (DME) pen needle, diabetic [BD Ultra-Fine Carol Pen Needle] 32 gauge x 5/32 needle See Rx Instructions .ROUTE .MEDSUPPLY Qty: 50 0RF Rx Instructions: daily (DME) insulin syringe-needle U-100 [BD Insulin Syringe Ultra-Fine] 0.3 mL 31 gauge x 5/16 syringe See Rx Instructions .Route Qty: 100 1RF Rx Instructions: tid (DME) Dexcom G6 Paper Coating Machine Operator Misc See Rx Instructions .Route Qty: 1 0RF Rx Instructions: As directed (DME) Omnipod 5 G6-G7 Pods (Gen 5) Cartridge See Rx Instructions .Route Qty: 30 1RF Rx Instructions: change every 3 days amlodipine 5 mg tablet 5 mg PO DAILY Qty: 90 3RF (DME) Dexcom G6 Sensor Device See Rx Instructions .Route Qty: 9 1RF Rx Instructions: 1 sensor q 10 days (DME) Dexcom G6 Transmitter Device See Rx Instructions .Route Qty: 1 1RF Rx Instructions: 1 q 90 days Primary Care Provider: Kristal Sullivan Referrals: Kristal Sullivan MD [Primary Care Provider] - Print Language: Dutch What to do if you have Problems For any increased pain, shortness of breath, bleeding, nausea or vomiting, chestpain, or any unexpected problems, contact your Primary Care Provider. Call [facility] ([phone]) or report to the closest Emergency Room. Call 911 if necessary. 08/10/24 4193 <Electronically signed by Jace Rios> Cosigner Signature (if applicable): CC: Dr. Kristal Sullivan MD ~ Signed [facility] Work Phone: 1(110) 487-322704-22-2025 History and physical note Author Garrison Valadez [facility] Note Date/Time July 20, 2024 3:5 6pm [facility] Medical Records Department [address] [place] [id number] History & Physical Exam 07/20/24 1555 MR#: [id number] Acct: [id number] Name: LAURIE GONZALES Rep #:[id number] : 1980 43 From: Garrison Valadez MD PCP: Dr. Kristal Sullivan MD Status:[facility] [place] Location: [place] [address] History and Physical Allergies No Known Allergies Allergy (Verified 06/18/24 11:29) Medications ?Medication ?Instructions ?Recorded ?Confirmed ?Type blood sugar diagnostic (FreeStyle #100 ea 10/08/21 06/18/24 Rx Lite Strips) lancing device with lancets kit #100 ea 11/26/21 06/18/24 Rx (Docphinuch Delica Plus Lancing Device kit) pen needle, diabetic 32 gauge x #150 ea 02/26/22 06/18/24 Rx 5/32 (BD Ultra-Fine Carol Pen Needle) alcohol swabs (BD Alcohol Swabs) 1 pad topical .4 times daily #200 06/18/24 Rx ea aspirin 81 mg tablet,delayed 81 mg PO BREAKFAST #90 tabs 02/25/24 Rx release blood-glucose transmitter (Dexcom #1 ea 02/25/24 06/18/24 Rx G6 Transmitter device) clopidogrel 75 mg tablet 75 mg PO DAILY #90 tabs 02/25/24 5 Rx insulin aspart U-100 100 unit/mL 80 unit (0.8 mL) continuous 02/25/24 Rx subcutaneous solution (Novolog subcutaneous infusion .continuous U-100 Insulin aspart) #72 mL metoprolol succinate 25 mg 25 mg PO DAILY #90 tabs 02/25/24 5 Rx tablet,extended release 24 hr rosuvastatin 10 mg tablet 10 mg PO DAILY #90 tabs 02/25/24 5 Rx insulin glargine 100 unit/mL (3 20 unit (0.2 mL) subcut QAM #15 mL 03/3006/18/24 Rx mL) subcutaneous pen (Lantus Solostar U-100 Insulin) insulin syringe-needle U-100 0.3 #100 ea 03/30/24 06/18/24 Rx mL 31 gauge x 5/16 (BD Insulin Syringe Ultra-Fine) pen needle, diabetic 32 gauge x #50 ea 03/30/24 06/18/24 Rx 5/32 (BD Ultra-Fine Carol Pen Needle) blood-glucose meter,continuous #1 ea 04/01/24 06/18/24 Rx (Dexcom G6 Paper Coating Machine Operator) blood-glucose sensor (Dexcom G6 #9 ea 04/01/24 06/18/24 Rx Sensor device) insulin pump cart,auto,BT,G6/7 #30 ea 04/01/24 06/18/24 Rx (Omnipod 5 G6-G7 Pods (Gen 5) subcutaneous cartridge) amlodipine 5 mg tablet 5 mg PO DAILY #90 tabs 05/10/24 06/18/24 Rx sevelamer carbonate 800 mg tablet 800 mg PO TID 06/18/24 06/18/24 History Have you fallen in the past year?: No PFSH Medical History ESRF (end stage renal failure) Hypertension DM type 1 (diabetes mellitus, type 1) Acute non-ST elevation myocardial infarction (NSTEMI) CKD (chronic kidney disease), stage V Congestive heart failure of unknown etiology Overweight (BMI 25.0-29.9) NSTEMI, initial episode of care Acute kidney injury superimposed on chronic kidney disease Elevated troponin DKA (diabetic ketoacidoses) Acute kidney injury Pre-op testing Stage 4 chronic kidney disease Diabetes mellitus type 1 Insulin pump titration Presence of insulin pump CKD (chronic kidney disease) Obesity Abscess Charcot foot due to diabetes mellitus Type 1 diabetes mellitus Surgical History History of coronary artery stent placement History of surgery on lower extremity Family History Mother Diabetes Thyroid disorderGrandmother DiabetesGrandfather Diabetes Social History Smoking Status: Never smoker alcohol intake: never substance use type: does not use HPI HPI HPI: LAURIE GONZALES, is a 43 M who presents to the office today for follow-up of his L radiocephalic AVF. Recall that this was created by Dr. Vargas in 07/2023 and hehad a few postoperative visits but was then lost to follow-up before the fistulawas cleared for use. At last OV in March, AV fistula had satisfactory exam andcleared for use with dialysis. Dialysis did try to utilize the fistula, but unable to make clearance so they have been using his IJ catheter. He had a fistula duplex 06/10/24 which demonstrated stenosis at the proximal anastomosis, inadequate flow, and multiple stealing branches. ROS General General: Yes appetite; No weight change, fatigue, colon cancer, breast cancer or weakness HEENT HEENT: No difficulty swallowing, eye injury, eye surgery, swollen glands or hoarseness Endo Endocrine: Yes diabetes mellitus; No thyroid disease, thyroid cancer, Hair loss, heat intolerance or cold intolerance Skin Skin: No rash or changing moles Musc Musculoskeletal: No back problems, arthritis, rheumatoid arthritis, gout or joint pain Cardio Cardiovascular: Yes heart stent; No murmur, pacemaker, heart disease, atrial fibrillation, high blood pressure, heart attack, palpitations, shortness of breath with exertion or chest pain Psych Psychiatric: No depression, anxiety or hearing voices Resp Respiratory: No shortness of breath, No sleep apnea, No cough, No COPD, No asthma, No emphysema and No wheezing Gastro Gastrointestinal: No abdominal pain, No nausea or vomiting, No diarrhea, No constipation, No blood in stool, No acid reflux, No hemorrhoids, No ulcers, No gallbladder problem and No black,tarry stools Mc Hematologic: Yes blood thinners, No blood disorders, No bleeding, Yes anemia andNo blood clots Neuro Neurologic: No system reviewed and no additional complaints, except as documented, No as per HPI, No abnormal gait, No abnormal hearing, No abnormal movements, No abnormal speech, No behavioral changes, No burning sensations, No confusion, No convulsions, No disequilibrium, No dizziness, No localized weakness, No frequent falls, No headache(s), No lack of coordination, No loss ofvision, No memory loss, No numbness, No other visual disturbances, No radicular pain, No restless legs, No sensory deficit, No syncope, No tingling, No tremor(s), No weakness and No other Exam Const General: cooperative, comfortable and no acute distress Orientation: alert, awake and oriented [facility]: no palpable skull fracture, normocephalic and atraumatic Ears: hearing grossly normal bilaterally and external ears normal Nose: external nose normal Eyes General: appearance normal, both eyes and all related structures Resp Effort & Inspection: normal respiratory effort, able to speak in complete sentences, symmetric chest movement, no audible wheezes, no grunting, not labored, no respiratory distress and no retractions Cardio Rate: regular rate Rhythm: regular rhythm Other: L forearm AVF with easily palpable thrill and excellent bruit from wrist to proximal upper arm Palpable radial/ulnar pulses, L hand appropriately warm and pink Skin General: no rashes or lesions noted Wounds: no wounds Neuro General: moves all extremities, no focal motor deficits and CN's II-XI intact bilaterally Speech: speech normal Extremities Lower Extremity Edema: None: Bilateral Psych Appearance: grossly normal Mental Status: mental status grossly normal Mood: congruent mood Affect: normal affect Speech and Movement: speech and movement normal Attitude: cooperative Judgment: judgment good Coding Level of Care Code Off vis,est,level 3 Diagnoses Malfunction of arteriovenous dialysis fistula T82.590A Assessment and Plan Assessment and Plan (1) Malfunction of arteriovenous dialysis fistula: Status: Acute Plan -fistulagram revealed multiple branches -ligate branches 07/20/24 1556 <Electronically signed by Garrison Valadez MD> Cosigner Signature (if applicable): CC: Dr. Kristal Sullivan MD; Dr. Garrison Valadez MD~ Signed [facility] Work Phone: 1(466) 432-249304-22-2025 Procedure note [facility] Medical Records Department [address] [place] [address] Operative Report 07/20/24 1650 MR#: [id number] Acct: [id number] Name: LAURIE GONZALES Rep #:[id number] : 1980 43 From: Garrison Valadez MD PCP: Dr. Kristal Sullivan MD Status:REG S DC Location: [place] [address] Operative Report (Standard) Operative Information Date of Procedure: 07/20/24 Pre-Operative Diagnosis: non-maturing left rad-ceph fistula Post-Operative Diagnosis: same Surgery/Procedure Performed: ligation multiple fistula branches it communications manager: Yes Store Host: Pako Bowman Tasks completed by airline pilot/first officer: Opening, Closing, Opening & closing and Hemostasis: Tie Type of Anesthesia: Local MAC, Local and MAC RN Documented Start/Stop Times: Operation Date: 07/20/24 14:30 Case Time Into Pre-Op 07/20/24 12:55 Anesthesia Start 07/20/24 15:57 Into Room 07/20/24 15:57 Out of Pre-Op 07/20/24 15:57 Procedure Start 07/20/24 16:25 Procedure End 07/20/24 16:48 Anesthesia End 07/20/24 16:51 Out of Room 07/20/24 16:51 Into Recovery 07/20/24 16:53 Out of Recovery 07/20/24 17:31 Into Phase II Recovery 07/20/24 17:32 Procedure Start Time: 16:25 Procedure Stop Time: 16:48 Select all DRAINS/GRAFTS/IMPLANTS that apply: None Estimated Blood Loss: 8 Specimen collected: No Description of surgery: HPI: Patient is a 43-year-old male with a previous left radiocephalic fistula creation that is failed to mature. He had a duplex which is revealed multiple large caliber branches at the proximal aspect of the fistula as well as what appeared to be stenosis adjacent to the anastomosis. He had a previous fistulogram which revealed no stenosis however did reveal that nearly all of thecontrast egressfrom the fistula went through these 2 large branches. He presents now for ligation of the fistula branches to aid in maturity of the dominant outflow vessel aid in maturation and ultimate use of the fistula. Description of procedure: Upon obtaining form consent and verification correct patient procedure site the patient was taken to the operating where he was positioned prepped and draped in usual sterile fashion. Moderate sedation was administered anesthesia and ultrasound used to evaluate the fistulain the 2 large sidebranches marked. Skin overlying the fistula branches was anesthetizedwith 1% lidocaine and longitudinal incision made centered over each of these branches. Bovie electrocautery wasused to dissect down through subcutaneous tissue followed by sharp dissection dissecting free each of these branches individually circumferentially. The branch were then ligated with silk ties. Afterbranch ligation there continued to be palpable thrill in the fistula in the vessel was evaluated with Doppler found to be patent with low resistance signal. The incision was then closed with 3-0 Vicryl followed by 4 Monocryl andDermabond for the skin. The patient was then taken to the recovery roomwith anticipated discharge to home. Surgical Findings: see above Complications Complications: No 07/20/24 3479 Cosigner Signature (if applicable): CC: Dr. Kristal Sullivan MD; Dr. Garrison Valadez MD~ Signed [facility]04-22-2025 Consult note [facility] Medical Records Department [address] [place] [address] Anesthesia Postop Eval I 07/20/24 1654 MR#: [id number] Acct: [id number] Name: LAURIE GONZALES Rep #:[id number] : 1980 43 From: Siva Drew CRNA PCP: Dr. Kristal Sullivan MD Status:REG S DC Y Race: C Location: [place] [address] Anesthesia: Postop Eval I Current Vital Signs Temperature: 97.3 F Pulse Rate: 73 Blood Pressure: 137/85 Respiratory Rate: 20 Pulse Ox: 95 Oxygen Delivery Method: Room Air Assessment Airway patent: Yes Spontaneous unlabored respirations: Yes Mental status: Awake and Calm nausea: No Vomiting: No Anesthesia Complication: No Fluid Hydration Crystalloid volume administer (ml): 250 Total IV fluid infused: 250 Progress Note Anesthesia document: Postop Eval 1 completed: Yes 07/20/24 1655 y STEWARD/STEWARDESS DECK> Date _ Siva Drew STEWARD/STEWARDESS DECK Cosigner Signature: Date CC: ~ Signed [facility]04-22-2025 Discharge summary [facility] Medical Records Department [address] [place] [address] Instructions for Home/Discharge Instructions 07/20/24 1640 MR#: [id number] Acct: [id number] Name: LAURIE GONZALES Rep #:[id number] : 1980 43 From: Garrison Valadez MD PCP: Dr. Kristal Sullivan MD Status:REG S DC Discharge Instructions Diet Discharge Diet: No restrictions Activity Lifting Restrictions: do not lift > 20 lbs with left arm for 10 days Additional Activity Instructions:: do not submerge incision for 10 days Dressing / Incision Call your doctor if your incision/area has: Sudden Increased Bleeding, IncreasedPain/ Swelling, Increased Redness and Foul Smelling Discharge Call your doctor if you observe: Coldness, Increased Pain and Numbness or Tingling Remove Dressing in: 2 days Cleanse incision/area with: Soap & Water Follow Up Care Test Results: Test results from this visit will be discussed in further detail at your follow- up appointment, if applicable. Discharge Plan Admission Attending Provider: Garrison Valadez Primary Care Provider: Kristal Sullivan Instructions Print Language: Dutch Discharge Orders/Prescriptions Prescriptions: New oxycodone 5 mg tablet 5 mg PO Q8H PRN (Reason: pain) 2 Days Qty: 6 0RF Continued (DME) FreeStyle Lite Strips Strip See Rx Instructions .Route Qty: 100 6RF Rx Instructions: 3x/day clopidogrel 75 mg tablet 75 mg PO DAILY Qty: 90 3RF metoprolol succinate 25 mg tablet extended release 24 hr 25 mg PO DAILY Qty: 90 3RF aspirin 81 mg tablet,delayed release (DR/EC) 81 mg PO BREAKFAST Qty: 90 3RF (DME) Dexcom G6 Transmitter Device See Rx Instructions .Route Qty: 1 1RF Rx Instructions: 1 q 90 days insulin aspart U-100 [Novolog U-100 Insulin aspart] 100 unit/mL solution 80 unit continuous subcutaneous infusion .continuous Qty: 72 1RF rosuvastatin 10 mg tablet 10 mg PO DAILY Qty: 90 1RF sevelamer carbonate 800 mg tablet 800 mg PO DAILY Rx Instructions: must administer with a meal/food insulin glargine [Lantus Solostar U-100 Insulin] 100 unit/mL (3 mL) insulin pen 20 unit subcut QAM PRN (Reason: PRN) (DME) lancing device with lancets [INCIDE Delica Plus Lanc Dev] Kit See Rx Instructions .Route Qty: 100 1RF Rx Instructions: 4x/day (DME) pen needle, diabetic [BD Ultra-Fine Carol Pen Needle] 32 gauge x 5/32 needle See Rx Instructions .ROUTE .MEDSUPPLY Qty: 150 5RF Rx Instructions: 4 times daily alcohol swabs [BD Alcohol Swabs] Pads, Medicated 1 pad TOPICAL .4 times daily Qty: 200 5RF (DME) pen needle, diabetic [BD Ultra-Fine Carol Pen Needle] 32 gauge x 5/32 needle See Rx Instructions .ROUTE .MEDSUPPLY Qty: 50 0RF Rx Instructions: daily (DME) insulin syringe-needle U-100 [BD Insulin Syringe Ultra-Fine] 0.3 mL 31 gauge x 5/16 syringe See Rx Instructions .Route Qty: 100 1RF Rx Instructions: tid (DME) Dexcom G6 Paper Coating Machine Operator Misc See Rx Instructions .Route Qty: 1 0RF Rx Instructions: As directed (DME) Dexcom G6 Sensor Device See Rx Instructions .Route Qty: 9 1RF Rx Instructions: 1 sensor q 10 days (DME) Omnipod 5 G6-G7 Pods (Gen 5) Cartridge See Rx Instructions .Route Qty: 30 1RF Rx Instructions: change every 3 days amlodipine 5 mg tablet 5 mg PO DAILY Qty: 90 3RF Referrals / Follow Up: Kristal Sullivan MD [Primary Care Provider] - Disposition Disposition (needs filled in before D/C Order can be placed): Home, Self Care 07/20/24 1645Garrison Valadez MD CC: Dr. Kristal Sullivan MD ~ Signed [facility]04-22-2025 History and physical note [facility] Medical Records Department [address] [place] [address] History & Physical Exam 07/20/24 1555 MR#: [id number] Acct: [id number] Name: LAURIE GONZALES Rep #:[id number] : 1980 43 From: Garrison Valadez MD PCP: Dr. Kristal Sullivan MD Status:REG S [place] Location: [place] [address] History and Physical Allergies No Known Allergies Allergy (Verified 06/18/24 11:29) Medications ?Medication ?Instructions ?Recorded ?Confirmed ?Type blood sugar diagnostic (FreeStyle #100 ea 10/08/21 06/18/24 Rx Lite Strips) lancing device with lancets kit #100 ea 11/26/21 06/18/24 Rx (Docphinuch Delica Plus Lancing Device kit) pen needle, diabetic 32 gauge x #150 ea 02/26/22 06/18/24 Rx 5/32 (BD Ultra-Fine Carol Pen Needle) alcohol swabs (BD Alcohol Swabs) 1 pad topical .4 times daily #200 06/18/24 Rx ea aspirin 81 mg tablet,delayed 81 mg PO BREAKFAST #90 tabs 02/25/24 Rx release blood-glucose transmitter (Dexcom #1 ea 02/25/24 06/18/24 Rx G6 Transmitter device) clopidogrel 75 mg tablet 75 mg PO DAILY #90 tabs 02/25/24 5 Rx insulin aspart U-100 100 unit/mL 80 unit (0.8 mL) continuous 02/25/24 Rx subcutaneous solution (Novolog subcutaneous infusion .continuous U-100 Insulin aspart) #72 mL metoprolol succinate 25 mg 25 mg PO DAILY #90 tabs 02/25/24 5 Rx tablet,extended release 24 hr rosuvastatin 10 mg tablet 10 mg PO DAILY #90 tabs 02/25/24 5 Rx insulin glargine 100 unit/mL (3 20 unit (0.2 mL) subcut QAM #15 mL 03/3006/18/24 Rx mL) subcutaneous pen (Lantus Solostar U-100 Insulin) insulin syringe-needle U-100 0.3 #100 ea 03/30/24 06/18/24 Rx mL 31 gauge x 5/16 (BD Insulin Syringe Ultra-Fine) pen needle, diabetic 32 gauge x #50 ea 03/30/24 06/18/24 Rx 5/32 (BD Ultra-Fine Carol Pen Needle) blood-glucose meter,continuous #1 ea 04/01/24 06/18/24 Rx (Dexcom G6 Paper Coating Machine Operator) blood-glucose sensor (Dexcom G6 #9 ea 04/01/24 06/18/24 Rx Sensor device) insulin pump cart,auto,BT,G6/7 #30 ea 04/01/24 06/18/24 Rx (Omnipod 5 G6-G7 Pods (Gen 5) subcutaneous cartridge) amlodipine 5 mg tablet 5 mg PO DAILY #90 tabs 05/10/24 06/18/24 Rx sevelamer carbonate 800 mg tablet 800 mg PO TID 06/18/24 06/18/24 History Have you fallen in the past year?: No PFSH Medical History ESRF (end stage renal failure) Hypertension DM type 1 (diabetes mellitus, type 1) Acute non-ST elevation myocardial infarction (NSTEMI) CKD (chronic kidney disease), stage V Congestive heart failure of unknown etiology Overweight (BMI 25.0-29.9) NSTEMI, initial episode of care Acute kidney injury superimposed on chronic kidney disease Elevated troponin DKA (diabetic ketoacidoses) Acute kidney injury Pre-op testing Stage 4 chronic kidney disease Diabetes mellitus type 1 Insulin pump titration Presence of insulin pump CKD (chronic kidney disease) Obesity Abscess Charcot foot due to diabetes mellitus Type 1 diabetes mellitus Surgical History History of coronary artery stent placement History of surgery on lower extremity Family History Mother Diabetes Thyroid disorderGrandmother DiabetesGrandfather Diabetes Social History Smoking Status: Never smoker alcohol intake: never substance use type: does not use HPI HPI HPI: LAURIE GONZALES, is a 43 M who presents to the office today for follow-up of his L radiocephalic AVF. Recall that this was created by Dr. Vargas in 07/2023 and hehad a few postoperative visits but was then lost to follow-up before the fistulawas cleared for use. At last OV in March, AV fistula had satisfactory exam andcleared for use with dialysis. Dialysis did try to utilize the fistula, but unable to make clearance so they have been using his IJ catheter. He had a fistula duplex 06/10/24 whichdemonstrated stenosis at the proximal anastomosis, inadequate flow, and multiple stealing branches. ROS General General: Yes appetite; No weight change, fatigue, colon cancer, breast cancer or weakness HEENT HEENT: No difficulty swallowing, eye injury, eye surgery, swollen glands or hoarseness Endo Endocrine: Yes diabetes mellitus; No thyroid disease, thyroid cancer, Hair loss, heat intolerance or cold intolerance Skin Skin: No rash or changing moles Musc Musculoskeletal: No back problems, arthritis, rheumatoid arthritis, gout or joint pain Cardio Cardiovascular: Yes heart stent; No murmur, pacemaker, heart disease, atrial fibrillation, high blood pressure, heart attack, palpitations, shortness of breath with exertion or chest pain Psych Psychiatric: No depression, anxiety or hearing voices Resp Respiratory: No shortness of breath, No sleep apnea, No cough, No COPD, No asthma, No emphysema andNo wheezing Gastro Gastrointestinal: No abdominal pain, No nausea or vomiting, No diarrhea, No constipation, No blood in stool, No acid reflux, No hemorrhoids, No ulcers, No gallbladder problem and No black,tarry stools Mc Hematologic: Yes blood thinners, No blood disorders, No bleeding, Yes anemia andNo blood clots Neuro Neurologic: No system reviewed and no additional complaints, except as documented, No as per HPI, No abnormal gait, No abnormal hearing, No abnormal movements, No abnormal speech, No behavioral changes, No burning sensations, No confusion, No convulsions, No disequilibrium, No dizziness, No localized weakness, No frequent falls, No headache(s), No lack of coordination, No loss ofvision, No memoryloss, No numbness, No other visual disturbances, No radicular pain, No restless legs, No sensory deficit, No syncope, No tingling, No tremor(s), No weakness and No other Exam Const General: cooperative, comfortable and no acute distress Orientation: alert, awake and oriented x3 HENMT Head: no palpable skull fracture, normocephalic and atraumatic Ears: hearing grossly normal bilaterally and external ears normal Nose: external nose normal Eyes General: appearance normal, both eyes and all related structures Resp Effort & Inspection: normal respiratory effort, able to speak in complete sentences, symmetric chest movement, no audible wheezes, no grunting, not labored, no respiratory distress and no retractions Cardio Rate: regular rate Rhythm: regular rhythm Other: L forearm AVF with easily palpable thrill and excellent bruit from wrist to proximal upper arm Palpable radial/ulnar pulses, L hand appropriately warm and pink Skin General: no rashes or lesions noted Wounds: no wounds Neuro General: moves all extremities, no focal motor deficits and CN's II-XI intact bilaterally Speech: speech normal Extremities Lower Extremity Edema: None: Bilateral Psych Appearance: grossly normal Mental Status: mental status grossly normal Mood: congruent mood Affect: normal affect Speech and Movement: speech and movement normal Attitude: cooperative Judgment: judgment good Coding Level of Care Code Off vis,est,level 3 Diagnoses Malfunction of arteriovenous dialysis fistula T82.590A Assessment and Plan Assessment and Plan (1) Malfunction of arteriovenous dialysis fistula: Status: Acute Plan -fistulagram revealed multiple branches -ligate branches 07/20/24 1556 Cosigner Signature (if applicable): CC: Dr. Kristal Sullivan MD; Dr. Garrison Valadez MD~ Signed [facility]04-22-2025 Consult note Author Shaun Thompson [facility] Note Date/Time July 20, 2024 1:5 5pm [facility] Medical Records Department [address] [place] [address] Pre-Anesthesia Evaluation 07/20/24 1348 MR#: [id number] Acct: [id number] Name: LAURIE GONZALES Rep #:[id number] : 1980 43 From: Shaun Thompson MD PCP: Dr. Kristal Sullivan MD Status:REG S DC Y Race: C Location: [facility]09-1 ASA Classification* ASA Classification ASA Classification: 3 Assessment & Plan Anesthesia* Anesthesia Assessment Anesthesia Assessment: Discussed sedation and/or anesthesia options, risks, benefits, and alternatives with patient/parents/legal guardian/POA. Questions invited. The patient/parents/legal guardian/POA seems to understand and agrees to proceedwith anesthesia plan. Reviewed the physical assessment, medical history, allergy history and patient home medications list prior to surgery/procedure/anesthetic and documented any changes. Performed airway and anesthesia risk assessments. Anesthesia Type Anesthesia Type: MAC History Source History Obtained from:: Patient and Chart Anesthesia Focused Assessment* Temperature: 98.2 F Pulse Rate: 70 Blood Pressure: 152/60 Respiratory Rate: 16 Pulse Ox: 100 Oxygen Delivery Method: Room Air Airway Assessment Mouth opens: >3 cm Mallampati Score: I Teeth Condition: Intact Neck Range of motion (ROM): Full ROM Focused Labs Anesthesia Preop lab: CBC WBC 7.9 K/mm3 (4.4-11.0) 07/07/24 06:55 07/07/24 RBC 3.28 M/mm3 (4.6-6.2) L 07/07/24 06:55 07/07/24 Hgb 10.2 g/dL (13.0-16.5) L 07/07/24 06:55 5 Hct 29.6 % (40-54) L 07/07/24 06:55 07/07/24 Plt Count 273 K/mm3 (150-450) 07/07/24 06:55 07/07/24 CHEMISTRY Potassium 4.3 mmol/L (3.3-5.1) 07/07/24 06:55 07/07/24 Sodium 134 mmol/L (133-145) 07/07/24 06:55 07/07/24 Magnesium 2.5 mg/dL (1.6-2.6) 01/23/24 01:40 01/23/24 Phosphorus 4.9 mg/dL (2.5-4.9) 01/24/24 03:30 01/24/24 BUN 43 mg/dL (4-19) H 07/07/24 06:55 07/07/24 Creatinine 5.67 mg/dL (0.70-1.20) H 07/07/24 06:55 Glucose 209 mg/dL (70-99) H 07/07/24 06:55 07/07/24 POC Glucose 188 mg/dL (74-106) H 04/20/24 11:00 04/20/24 TSH 1.100 uIU/mL (0.358-3.740) 01/23/24 01:40 1008/21 COAG PT 13.9 SECONDS (11.7-14.9) 01/22/24 20:30 Pre-Assessment Diagnosis/Proposed Procedure Planned Operative Procedure(s): (L) left Fistula Arteriovenous Ligation Anesthesia History Anesthesia History - production estimator: Anesthesia History - production estimator Hx Hospitalization Yes: 12/202307/16/24 14:53 Any Problems With Anesthesia No 07/16/24 14:53 Cholinesterase deficiency No 07/16/24 14:53 You/Your Family Experience No 07/16/24 14:53 fever (hyperthermia) with Relationship Recent Exposure to Contagious No 07/20/24 13:23 Disease Does patient have nerve No 07/16/24 14:53 stimulator Patient instructed to have device shut off --Does patient have Pacemaker No 07/20/24 13:23 or ICD? When Was Last Pacemaker Check QUESTION #4 FULL TEXT: You/Your Family Experience fever (hyperthermia) with Anesthesia Last Oral Intake Last Oral intake: Last Oral Intake NPO since 07:50 07/20/24 13:23 Meds taken in AM with sips of Yes 07/20/24 13:23 water? Meds patient instructed to see med rec 07/20/24 13:23 take am of surgery Any additional information?: Yes NPO since: 07:50 (Patient has meds at 7:50 AM with water.) Meds taken in AM with sips of water?: Yes PONV PONV - production estimator: PONV - production estimator Female No 07/16/24 14:53 HX of Motion Sickness No 07/16/24 14:53 HX of N/V After Surgery No 07/16/24 14:53 Non-Smoker Yes 07/16/24 14:53 Duration of Surgery greater Yes 07/16/24 14:53 than 60 minutes Number of Risk Factors 2 07/16/24 14:53 PONV Score Moderate Risk 07/16/24 14:53 Height & Weight Height & Weight: Anesthesia: Height & Weight Height 5 ft 11 in 07/20/24 13:23 Weight: 92.8 kg 07/20/24 13:23 Body Mass Index (BMI) 28.5 07/20/24 13:23 Respiratory Assessment Respiratory Assessment - production estimator: Respiratory Tract Infection Hx - production estimator Hx Respiratory Tract Infection No 07/16/24 14:53 STOP Sleep Apnea STOP Sleep Apnea - production estimator: STOP Sleep Apnea - production estimator Hx Hypertension Yes: CONTROLLED ON MED 07/16/24 14:53 Hx Sleep Apnea No 07/16/24 14:53 CPAP No 07/16/24 14:53 BIPAP No 07/16/24 14:53 Do you snore loudly (louder No 07/16/24 14:53 than talking or can be heard Do you often feel tired/ No 07/16/24 14:53 fatigued/ sleepy during daytime? Has anyone observed you stop No 07/16/24 14:53 breathing during sleep? STOP Results Negative 07/16/24 14:53 QUESTION #5 FULL TEXT : Do you snore loudly (louder than talking or can be heard through closed doors)? Tobacco Use History Tobacco Use History - production estimator: Tobacco Use History - production estimator Tobacco Use Non-smoker 06/30/24 15:56 Smoking Status Never smoker 07/16/24 14:53 Hx Tobacco Use No 07/16/24 14:53 Years Smoking Packs Smoked per Day Smoking Cessation Date was within the last 15 years Hx Smoking Cessation Date Hx Smoking Cessation Counseling Hematologic Medial History Hematologic Hx - production estimator: Hematologic Medical Hx - hand striper Hx of Blood Transfusion Yes 07/16/24 14:53 Hx of Transfusion in last 3 No 07/16/24 14:53 Months Date of Last Transfusion (if within last 3 months) Ever experience any problems No 07/16/24 14:53 with transfusion(s)? Specify any problems Hx of Preganancy in last 3 N/A 07/16/24 14:53 Months Nurse Filling Out Transfusion VCHRISTIN 07/16/24 14:53 & Questions: Date: 07/16/24 07/16/24 14:53 Time: 14:54 07/16/24 14:53 Patient unable to answer at this time (ie. confused, unrespo /Reproduction History /Reproductive History - production estimator: /Reproductive Hx- production estimator Hx Now Gestational Age (in weeks): EDC: Hx Hx Para Hx Section SAB No 07/16/24 14:53 Active Medications Active Medications: Current Medications Generic Name Dose Route Start Last Admin Trade Name Freq PRN Reason Stop Dose Admin Cefazolin Sodium 2 gm/ N/A 20 mls @ 400 mls/hr 07/20/24 14:30 IV 07/20/24 14:32 INTRAOP ONE [facility] Medical History Insulin dependent diabetes mellitus Diabetes History of renal dialysis History of renal disease Back pain Injury of back Dietary restriction Gastric reflux Non-smoker Leg cramps Cardiology follow-up encounter History of echocardiogram History of heart attack Acute non-ST elevation myocardial infarction (NSTEMI) CKD (chronic kidney disease), stage V Congestive heart failure of unknown etiology Overweight (BMI 25.0-29.9) NSTEMI, initial episode of care Acute kidney injury superimposed on chronic kidney disease Elevated troponin Pre-op testing ESRF (end stage renal failure) Stage 4 chronic kidney disease Diabetes mellitus type 1 Insulin pump titration Presence of insulin pump CKD (chronic kidney disease) Hypertension Obesity Abscess Charcot foot due to diabetes mellitus Type 1 diabetes mellitus Acute kidney injury DKA (diabetic ketoacidoses) DM type 1 (diabetes mellitus, type 1) Home Medications ?Medication ?Instructions ?Recorded ?Last Taken ?Type blood sugar diagnostic (FreeStyle #100 ea 10/08/21 Unk nown Rx Lite Strips) lancing device with lancets kit #100 ea 11/26/21 Unkno wn Rx (OneTouch Delica Plus Lancing Device kit) pen needle, diabetic 32 gauge x #150 ea 02/26/22 Unkno wn Rx (BD Ultra-Fine Carol Pen Needle) alcohol swabs (BD Alcohol Swabs) 1 pad topical .4 time s daily #200 05/20/22 Unknown Rx ea aspirin 81 mg tablet,delayed 81 mg PO BREAKFAST #90 ta bs 02/25/24 Unknown Rx release blood-glucose transmitter (Dexcom #1 ea 02/25/24 Unkno wn Rx G6 Transmitter device) clopidogrel 75 mg tablet 75 mg PO DAILY #90 tabs 01/3007/20/24 07:50 Rx insulin aspart U-100 100 unit/mL 80 unit (0.8 mL) cont inuous 02/25/24 Unknown Rx subcutaneous solution (Novolog subcutaneous infusion . continuous U-100 Insulin aspart) #72 mL metoprolol succinate 25 mg 25 mg PO DAILY #90 tabs 07/20/24 07:50 Rx tablet,extended release 24 hr rosuvastatin 10 mg tablet 10 mg PO DAILY #90 tabs 01/3007/20/24 07:50 Rx insulin syringe-needle U-100 0.3 #100 ea 03/30/24 Unkn own Rx mL 31 gauge x 5/16 (BD Insulin Syringe Ultra-Fine) pen needle, diabetic 32 gauge x #50 ea 03/30/24 Unknow n Rx 5/32 (BD Ultra-Fine Carol Pen Needle) blood-glucose meter,continuous #1 ea 04/01/24 Unknown Rx (Dexcom G6 Paper Coating Machine Operator) blood-glucose sensor (Dexcom G6 #9 ea 04/01/24 Unknown Rx Sensor device) insulin pump cart,auto,BT,G6/7 #30 ea 04/01/24 Unknown Rx (Omnipod 5 G6-G7 Pods (Gen 5) subcutaneous cartridge) amlodipine 5 mg tablet 5 mg PO DAILY #90 tabs 05/1007/20/24 07:50 Rx sevelamer carbonate 800 mg tablet 800 mg PO DAILY 05/30 04/24 Unknown History insulin glargine 100 unit/mL (3 20 unit subcut QAM PRN PRN 07/16/24 Unknown History mL) subcutaneous pen (Lantus Solostar U-100 Insulin) Allergy/AdvReac Type Severity Reaction Status Date / Time No Known Allergies Allergy Verified 07/20/24 13:21 Family History Mother Diabetes Thyroid disorder Grandmother Diabetes Grandfather Diabetes Surgical History History of cardiac catheterization History of heart surgery Hx of surgical procedure History of coronary artery stent placement History of surgery on lower extremity Social History Smoking Status: Never smoker alcohol intake: never substance use type: does not use Review of Systems (Anesthesia) ROS Narrative System reviewed and no additional complaints, except as documented. 07/20/24 1355 <Electronically signed by Shaun gaffney MD> Date _ Shaun Thompson MD Cosigner Signature: Date CC: ~ Signed [facility] Work Phone: 1(934) 449-653204-22-2025 [facility]04-22-2025 Consult note [facility] Medical Records Department [address] [place] [id number] Pre-Anesthesia Evaluation 07/20/24 1348 MR#: [id number] Acct: [id number] Name: LAURIE GONZALES Rep #:[id number] : 1980 43 From: Shaun Thompson MD PCP: Dr. Kristal Sullivan MD Status:REG S DC Y Race: C Location: [place] [address] ASA Classification* ASA Classification ASA Classification: 3 Assessment & Plan Anesthesia* Anesthesia Assessment Anesthesia Assessment: Discussed sedation and/or anesthesia options, risks, benefits, and alternatives with patient/parents/legal guardian/POA. Questions invited. The patient/parents/legal guardian/POA seems to understand and agrees to proceedwith anesthesia plan. Reviewed the physical assessment, medical history, allergy history and patient home medications list prior to surgery/procedure/anesthetic and documented any changes. Performed airway and anesthesia risk assessments. Anesthesia Type Anesthesia Type: MAC History Source History Obtained from:: Patient and Chart Anesthesia Focused Assessment* Temperature: 98.2 F Pulse Rate: 70 Blood Pressure: 152/60 Respiratory Rate: 16 Pulse Ox: 100 Oxygen Delivery Method: Room Air Airway Assessment Mouth opens: >3 cm Mallampati Score: I Teeth Condition: Intact Neck Range of motion (ROM): Full ROM Focused Labs Anesthesia Preop lab: CBC WBC 7.9 K/mm3 (4.4-11.0) 07/07/24 06:55 07/07/24 RBC 3.28 M/mm3 (4.6-6.2) L 07/07/24 06:55 07/07/24 Hgb 10.2 g/dL (13.0-16.5) L 07/07/24 06:55 5 Hct 29.6 % (40-54) L 07/07/24 06:55 07/07/24 Plt Count 273 K/mm3 (150-450) 07/07/24 06:55 07/07/24 CHEMISTRY Potassium 4.3 mmol/L (3.3-5.1) 07/07/24 06:55 07/07/24 Sodium 134 mmol/L (133-145) 07/07/24 06:55 07/07/24 Magnesium 2.5 mg/dL (1.6-2.6) 01/23/24 01:40 01/23/24 Phosphorus 4.9 mg/dL (2.5-4.9) 01/24/24 03:30 01/24/24 BUN 43 mg/dL (4-19) H 07/07/24 06:55 07/07/24 Creatinine 5.67 mg/dL (0.70-1.20) H 07/07/24 06:55 Glucose 209 mg/dL (70-99) H 07/07/24 06:55 07/07/24 POC Glucose 188 mg/dL (74-106) H 04/20/24 11:00 04/20/24 TSH 1.100 uIU/mL (0.358-3.740) 01/23/24 01:40 12/30 08/21 COAG PT 13.9 SECONDS (11.7-14.9) 01/22/24 20:30 Pre-Assessment Diagnosis/Proposed Procedure Planned Operative Procedure(s): (L) left Fistula Arteriovenous Ligation Anesthesia History Anesthesia History - production estimator: Anesthesia History - production estimator Hx Hospitalization Yes: 12/202307/16/24 14:53 Any Problems With Anesthesia No 07/16/24 14:53 Cholinesterase deficiency No 07/16/24 14:53 You/Your Family Experience No 07/16/24 14:53 fever (hyperthermia) with Relationship Recent Exposure to Contagious No 07/20/24 13:23 Disease Does patient have nerve No 07/16/24 14:53 stimulator Patient instructed to have device shut off --Does patient have Pacemaker No 07/20/24 13:23 or ICD? When Was Last Pacemaker Check QUESTION #4 FULL TEXT: You/Your Family Experience fever (hyperthermia) with Anesthesia Last Oral Intake Last Oral intake: Last Oral Intake NPO since 07:50 07/20/24 13:23 Meds taken in AM with sips of Yes 07/20/24 13:23 water? Meds patient instructed to see med rec 07/20/24 13:23 take am of surgery Any additional information?: Yes NPO since: 07:50 (Patient has meds at 7:50 AM with water.) Meds taken in AM with sips of water?: Yes PONV PONV - production estimator: PONV - production estimator Female No 07/16/24 14:53 HX of Motion Sickness No 07/16/24 14:53 HX of N/V After Surgery No 07/16/24 14:53 Non-Smoker Yes 07/16/24 14:53 Duration of Surgery greater Yes 07/16/24 14:53 than 60 minutes Number of Risk Factors 2 07/16/24 14:53 PONV Score Moderate Risk 07/16/24 14:53 Height & Weight Height & Weight: Anesthesia: Height & Weight Height 5 ft 11 in 07/20/24 13:23 Weight: 92.8 kg 07/20/24 13:23 Body Mass Index (BMI) 28.5 07/20/24 13:23 Respiratory Assessment Respiratory Assessment - production estimator: Respiratory Tract Infection Hx - production estimator Hx Respiratory Tract Infection No 07/16/24 14:53 STOP Sleep Apnea STOP Sleep Apnea - production estimator: STOP Sleep Apnea - production estimator Hx Hypertension Yes: CONTROLLED ON MED 07/16/24 14:53 Hx Sleep Apnea No 07/16/24 14:53 CPAP No 07/16/24 14:53 BIPAP No 07/16/24 14:53 Do you snore loudly (louder No 07/16/24 14:53 than talking or can be heard Do you often feel tired/ No 07/16/24 14:53 fatigued/ sleepy during daytime? Has anyone observed you stop No 07/16/24 14:53 breathing during sleep? STOP Results Negative 07/16/24 14:53 QUESTION #5 FULL TEXT : Do you snore loudly (louder than talking or can be heard through closeddoors)? Tobacco Use History Tobacco Use History - production estimator: Tobacco Use History - production estimator Tobacco Use Non-smoker 06/30/24 15:56 Smoking Status Never smoker 07/16/24 14:53 Hx Tobacco Use No 07/16/24 14:53 Years Smoking Packs Smoked per Day Smoking Cessation Date was within the last 15 years Hx Smoking Cessation Date Hx Smoking Cessation Counseling Hematologic Medial History Hematologic Hx - production estimator: Hematologic Medical Hx - hand striper Hx of Blood Transfusion Yes 07/16/24 14:53 Hx of Transfusion in last 3 No 07/16/24 14:53 Months Date of Last Transfusion (if within last 3 months) Ever experience any problems No 07/16/24 14:53 with transfusion(s)? Specify any problems Hx of Preganancy in last 3 N/A 07/16/24 14:53 Months Nurse Filling Out Transfusion VCHRISTIN 07/16/24 14:53 & Questions: Date: 07/16/24 07/16/24 14:53 Time: 14:54 07/16/24 14:53 Patient unable to answer at this time (ie. confused, unrespo /Reproduction History /Reproductive History - production estimator: /Reproductive Hx- production estimator Hx Now Gestational Age (in weeks): EDC: Hx Hx Para Hx Section SAB No 07/16/24 14:53 Active Medications Active Medications: Current Medications Generic Name Dose Route Start Last Admin Trade Name Freq PRN Reason Stop Dose Admin Cefazolin Sodium 2 gm/ N/A 20 mls @ 400 mls/hr 07/20/24 14:30 IV 07/20/24 14:32 INTRAOP ONE [facility] Medical History Insulin dependent diabetes mellitus Diabetes History of renal dialysis History of renal disease Back pain Injury of back Dietary restriction Gastric reflux Non-smoker Leg cramps Cardiology follow-up encounter History of echocardiogram History of heart attack Acute non-ST elevation myocardial infarction (NSTEMI) CKD (chronic kidney disease), stage V Congestive heart failure of unknown etiology Overweight (BMI 25.0-29.9) NSTEMI, initial episode of care Acute kidney injury superimposed on chronic kidney disease Elevated troponin Pre-op testing ESRF (end stage renal failure) Stage 4 chronic kidney disease Diabetes mellitus type 1 Insulin pump titration Presence of insulin pump CKD (chronic kidney disease) Hypertension Obesity Abscess Charcot foot due to diabetes mellitus Type 1 diabetes mellitus Acute kidney injury DKA (diabetic ketoacidoses) DM type 1 (diabetes mellitus, type 1) Home Medications ?Medication ?Instructions ?Recorded ?Last Taken ?Type blood sugar diagnostic (FreeStyle #100 ea 10/08/21 Unk nown Rx Lite Strips) lancing device with lancets kit #100 ea 11/26/21 Unkno wn Rx (OneTouch Delica Plus Lancing Device kit) pen needle, diabetic 32 gauge x #150 ea 02/26/22 Unkno wn Rx 5/32 (BD Ultra-Fine Carol Pen Needle) alcohol swabs (BD Alcohol Swabs) 1 pad topical .4 time s daily #200 05/20/22 Unknown Rx ea aspirin 81 mg tablet,delayed 81 mg PO BREAKFAST #90 ta bs 02/25/24 Unknown Rx release blood-glucose transmitter (Dexcom #1 ea 02/25/24 Unkno wn Rx G6 Transmitter device) clopidogrel 75 mg tablet 75 mg PO DAILY #90 tabs 01/3007/20/24 07:50 Rx insulin aspart U-100 100 unit/mL 80 unit (0.8 mL) cont inuous 02/25/24 Unknown Rx subcutaneous solution (Novolog subcutaneous infusion . continuous U-100 Insulin aspart) #72 mL metoprolol succinate 25 mg 25 mg PO DAILY #90 tabs 07/20/24 07:50 Rx tablet,extended release 24 hr rosuvastatin 10 mg tablet 10 mg PO DAILY #90 tabs 01/3007/20/24 07:50 Rx insulin syringe-needle U-100 0.3 #100 ea 03/30/24 Unkn own Rx mL 31 gauge x 5/16 (BD Insulin Syringe Ultra-Fine) pen needle, diabetic 32 gauge x #50 ea 03/30/24 Unknow n Rx 5/32 (BD Ultra-Fine Carol Pen Needle) blood-glucose meter,continuous #1 ea 04/01/24 Unknown Rx (Dexcom G6 Paper Coating Machine Operator) blood-glucose sensor (Dexcom G6 #9 ea 04/01/24 Unknown Rx Sensor device) insulin pump cart,auto,BT,G6/7 #30 ea 04/01/24 Unknown Rx (Omnipod 5 G6-G7 Pods (Gen 5) subcutaneous cartridge) amlodipine 5 mg tablet 5 mg PO DAILY #90 tabs 05/1007/20/24 07:50 Rx sevelamer carbonate 800 mg tablet 800 mg PO DAILY 05/30 04/24 Unknown History insulin glargine 100 unit/mL (3 20 unit subcut QAM PRN PRN 07/16/24 Unknown History mL) subcutaneous pen (Lantus Solostar U-100 Insulin) Allergy/AdvReac Type Severity Reaction Status Date / Time No Known Allergies Allergy Verified 07/20/24 13:21 Family History Mother Diabetes Thyroid disorder Grandmother Diabetes Grandfather Diabetes Surgical History History of cardiac catheterization History of heart surgery Hx of surgical procedure History of coronary artery stent placement History of surgery on lower extremity Social History Smoking Status: Never smoker alcohol intake: never substance use type: does not use Review of Systems (Anesthesia) ROS Narrative System reviewed and no additional complaints, except as documented. 07/20/24 1355 yeimy LACEY> Date _ Shaun Thompson MD Cosigner Signature: Date CC: ~ Signed [facility]04-16-2025 NoteHNO ID: [id number] Author: RORO POLLARD RN Service: ? Author Type: Registered Nurse Type: Progress Notes Filed: 07/14/2024 11:14 Note Text: I left a detailed vm for Mr Gonzales informing him he is actively listed. I encouraged him to have a bag packed, support person aware and phone numbers current. [facility]ard [facility] History of Present illness Narrative* Roro Pollard RN - 07/14/2024 11:11 AM EDT I left a detailed vm for Mr Gonzales informing him he is actively listed. I encouraged him to have abag packed, support person aware and phone numbers current. Roro Pollard RN [facility] NoteHNO ID: [id number] Author: RORO POLLARD RN Service: ? Author Type: Registered Nurse Type: Progress Notes Filed: 07/14/2024 11:09 Note Text: ABO Verification prior to Listing: Laurie Gonzales's ABO blood type has been verified using source documentation from samples: drawn on two separate occasions with different collection times submitted as separate samples The results of these samples are the same and indicate that the patient's ABO blood type is: AB. Transplant Coordinators performing verification: KANDACE Cain RN Patient has been added to the [facility] waiting list. Roro Pollard RN [facility] History of Present illness Narrative* Roro Pollard RN - 07/14/2024 11:09 AM EDT ABO Verification prior to Listing: Laurie Gonzales's ABO blood type has been verified using source documentation from samples: drawn on two separate occasions with different collection times submitted as separate samples The results of these samples are the same and indicate that the patient's ABO blood type is: AB. Transplant Coordinators performing verification: KANDACE Cain RN Patient has been added to the [facility] waiting list. Roro Pollard RN Pre-Third Shift Lieutenant [facility] Note* Addendum Note - Roro Pollard RN - 06/23/2024 1:39 PM EDTAddended by: RORO POLLARD on: 06/23/2024 01:39 PM Modules accepted: Orders [facility]03-26-2025 Miscellaneous Notes* Addendum Note - Roro Pollard RN - 06/23/2024 1:39 PM EDTAddended by: RORO POLLARD on: 06/23/2024 01:39 PM Modules accepted: Orders documented [facility]03-[facility]-2025 NoteHNO ID: [id number] Author: RORO POLLARD RN Service: ? Author Type: Registered Nurse Type: Progress Notes Filed: 06/23/2024 13:38 Note Text: Informed Laurie Gonzales that the Kidney/Pancreas Selection Committee approved them to be listed for a kidney transplant. Informed patient that potential donors can begin work-up once they have submitted a fresh serum sample AND they are placed on the list. Gave them the Living Donor Office online web address and office phone number. [email or web address] Reminded Laurie Gonzales that if uncomfortable with donor's history, etc, they may say No without penalty. Reviewed choices that were chosen on the KDPI form with patient and updated below as needed. Types of donors patient is willing to consider: Donors that from Cardiac (DCD) Yes Hepatitis C Donors Yes Hepatitis B Core Antibody Donors Yes KDPI score > 85% No Discussed monthly serum samples, why they are needed and how to get them drawn. Informed patient that delays in providing serum can result in delays to living donor crossmatching or possibly being skipped for a donor transplant. All phone numbers confirmed with the patient Additional Information Additional testing needed: Additional consults needed: Special instructions for listing: Labs will be drawn at : Is the patient vaccinated against HEP B: (If vaccinated ensure documentation in Epic) Yes If patient is not vaccinated against HEP B do they plan on getting the vaccination: If not why: Has not completed the Hepatitis B vaccination series due to: [] Timing related to transplant/time constraints [] Medical contraindication/precaution [] Medical judgement/prior immunity [] Patient choice/objection [] Product out of stock [] Confirm if patient is on dialysis Yes HD, [facility] Discussed with the patient that staying up to date on ALL vaccines including the COVID-19 vaccine and Hepatitis B vaccine is strongly recommended. Kidney/Pancreas and Pancreas Alone Candidates ONLY KP or [place] Additional Information Insulin Start Date: Amount of Insulin C Peptide level Hgb A1C level: Discussed with the patient who will be the primary coordinator for their case once they are listed: Bg Jennings RN [phone]. Patient verbalized understanding of all the information that was discussed. Will move forward with the listing process for kidney-pancreas transplant. Roro Pollard RN Pre-Kidney AND Pancreas Third Shift Lieutenant [facility]03-26-2025 History of Present illness Narrative* Roro Pollard RN - 06/23/2024 11:53 AM EDT Informed Laurie Gonzales that the Kidney/Pancreas Selection Committee approved them to be listed for a kidney transplant. Informed patient that potential donors can begin work-up once they have submitted a fresh serum sample AND they are placed on the list. Gave them the Living Donor Office online web address and officephone number. [email or web address] Office Reminded Laurie Gonzales that if uncomfortable with donor's history, etc, they may say No without penalty. Reviewed choices that were chosen on the KDPI form with patient and updated below as needed. Types of donors patient is willing to consider: Donors that from Cardiac (DCD) Yes Hepatitis C Donors Yes Hepatitis B Core Antibody Donors Yes KDPI score > 85% No Discussed monthly serum samples, why they are needed and how to get them drawn. Informed patient that delays in providing serum can result in delays to living donor crossmatching or possibly being skipped for a donor transplant. All phone numbers confirmed with the patient Additional Information Additional testing needed: Additional consults needed: Special instructions for listing: Labs will be drawn at : Is the patient vaccinated against HEP B: (If vaccinated ensure documentation in Epic) Yes If patient is not vaccinated against HEP B do they plan on getting the vaccination: If not why: Has not completed the Hepatitis B vaccination series due to: [] Timing related to transplant/time constraints [] Medical contraindication/precaution [] Medical judgement/prior immunity [] Patient choice/objection [] Product out of stock [] Confirm if patient is on dialysis Yes HD, [facility] Discussed with the patient that staying up to date on ALL vaccines including the COVID-19 vaccine and Hepatitis B vaccine is strongly recommended. Kidney/Pancreas and Pancreas Alone Candidates ONLY KP or [place] Additional Information Insulin Start Date: Amount of Insulin C Peptide level Hgb A1C level: Discussed with the patient who will be the primary coordinator for their case once they are listed:Bg Jennings RN [phone]. Patient verbalized understanding of all the information that was discussed. Will move forward with the listing process for kidney-pancreas transplant. 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 [facility]03-26-2025 Miscellaneous Notes* Telephone Encounter - Vianey Romo MA - 06/23/2024 9:14 AM EDT 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 * Telephone Encounter - Kim Loving MA - 06/18/2024 3:29 PM EDT Type of form: BMV Request for Statement of Physician Form received via walk in When form is completed, Scan form into Epic & call patient for quill picking machine operator Form has been forwarded to Physician Desk: Dr. Marly Loving MA documented in [facility]03-[facility] Telephone encounter Note * Telephone Encounter - Kim Loving MA - 06/18/2024 3:29 PM EDT Type of form: BMV Request for Statement of Physician Form received via walk in When form is completed, Scan form into Epic & call patient for quill picking machine operator Form has been forwarded to Physician Desk: Dr. Marly Loving MA [facility]03-21-2025 Evaluation note* Diagnosis Onset Date Resolution Status Admit Date Malfunction of arteriovenous dialysis fistula acute June 18 11:17am DM type 1 (diabetes mellitus , type 1) chronic July 28, 2024 10:36am Hyperlipidemia chronic June 10:36am Hypertension chronic July 28, 2024 10:36am Insulin pump titration chronic Ap ril 2024 10:36am Overweight chronic July 28 10:36am Presence of insulin pump chronic July 28, 2024 10:36am Vitamin D deficiency chronic Apri l 2024 10:36am AV fistula acute August 05, 2024 10:47am ESRD (end stage renal diseas e) on dialysis acute August 10, 2024 1 1:09pm Chest pain resolved August 10, 2024 11:09pm Dyspepsia resolved August 10, 2024 11:09pm Elevated troponin inactive July 11:09pm Dysphagia acute August 17, 2024 2:27pm Odynophagia acute August 17 2:27pm [facility] Work Phone: 1(482) 607-928903-21-2025 Evaluation note* Diagnosis Onset Date Resolution Status Admit Date Malfunction of arteriovenous dialysis fistula acute June 18 11:17am DM type 1 (diabetes mellitus , type 1) chronic July 28, 2024 10:36am Hyperlipidemia chronic June 10:36am Hypertension chronic July 28, 2024 10:36am Insulin pump titration chronic Ap ril 2024 10:36am Overweight chronic July 28 10:36am Presence of insulin pump chronic July 28, 2024 10:36am Vitamin D deficiency chronic Apri l 2024 10:36am AV fistula acute August 05, 2024 10:47am ESRD (end stage renal diseas e) on dialysis acute August 10, 2024 1 1:09pm Chest pain resolved August 10, 2024 11:09pm Dyspepsia resolved August 10, 2024 11:09pm Elevated troponin inactive July 11:09pm Dysphagia acute August 17, 2024 2:27pm Odynophagia acute August 17 2:27pm Dysphagia acute August 31, 2024 10:25am Odynophagia acute August 31 10:25am History of coronary artery s tent placement chronic August 31, 2024 3 :01pm Hyperlipidemia chronic August 31, 2024 3:01pm Hypertension chronic August 31 3:01pm Erosive esophagitis acute September 07, 2024 12:44pm [facility] Work Phone: 1(418) 267-522403-21-2025 Evaluation note* Diagnosis Onset Date Resolution Status Admit Date Malfunction of arteriovenous dialysis fistula acute June 18 11:17am DM type 1 (diabetes mellitus , type 1) chronic July 28, 2024 10:36am Hyperlipidemia chronic June 10:36am Hypertension chronic July 28, 2024 10:36am Insulin pump titration chronic Ap ril 2024 10:36am Overweight chronic July 28 10:36am Presence of insulin pump chronic July 28, 2024 10:36am Vitamin D deficiency chronic Apri l 2024 10:36am AV fistula acute August 05, 2024 10:47am ESRD (end stage renal diseas e) on dialysis acute August 10, 2024 1 1:09pm Chest pain resolved August 10, 2024 11:09pm Dyspepsia resolved August 10, 2024 11:09pm Elevated troponin inactive July 11:09pm Dysphagia acute August 17, 2024 2:27pm Odynophagia acute August 17 2:27pm Dysphagia acute August 31, 2024 10:25am Odynophagia acute August 31 10:25am Decreased pedal pulses acute 2024 3:01pm History of coronary artery s tent placement chronic August 31, 2024 3 :01pm Hyperlipidemia chronic August 31, 2024 3:01pm Hypertension chronic August 31 3:01pm [facility] Work Phone: 1(886) 906-863103-21-2025 Evaluation note* Diagnosis Onset Date Resolution Status Admit Date Malfunction of arteriovenous dialysis fistula acute June 18 11:17am DM type 1 (diabetes mellitus , type 1) chronic July 28, 2024 10:36am Hyperlipidemia chronic June 10:36am Hypertension chronic July 28, 2024 10:36am Insulin pump titration chronic Ap ril 2024 10:36am Overweight chronic July 28 10:36am Presence of insulin pump chronic July 28, 2024 10:36am Vitamin D deficiency chronic Apri l 2024 10:36am AV fistula acute August 05, 2024 10:47am ESRD (end stage renal diseas e) on dialysis acute August 10, 2024 1 1:09pm Chest pain resolved August 10, 2024 11:09pm Dyspepsia resolved August 10, 2024 11:09pm Elevated troponin inactive July 11:09pm Dysphagia acute August 17, 2024 2:27pm Odynophagia acute August 17 2:27pm Dysphagia acute August 31, 2024 10:25am Odynophagia acute August 31 10:25am [facility] Work Phone: 1(732) 426-605503-18-2025 Instructions* Patient Instructions* Kristal Sullivan MD - 06/15/2024 2:05 PM EDT - Continue taking Metoprolol once daily as prescribed. - Reduce Amlodipine dosage to the lowest dose of 2.5 mg and gradually discontinue. - Continue taking Aspirin daily. - Continue taking Sevelamer as prescribed. - Continue taking Rosuvastatin as prescribed. - Continue taking Vitamin D as prescribed. - Use Benadryl as needed for itching. - Maintain regular dialysis sessions as scheduled. - Attend your appointment on the to discuss the fistula. - Send the form for the disability placard to the clinic for completion. 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 documented in [facility]25 NoteHNO ID: [id number] Author: KRISTAL SULLIVAN MD Service: ? Author Type: Physician Type: Progress Notes Filed: 06/15/2024 17:34 Note Text: Reason for Visit Laurie is a 43-year-old male with a history of type 1 diabetes, CKD, and CAD, presenting for follow-up. HPI Type 1 Diabetes: - Managed with Omnipod insulin pump and CGM. - Under the care of Dr. Ko, seen every 3 months. - Denies changes in foot sensation; feet checked daily at dialysis. CKD: - On dialysis every 3 days for 6 hours. - Reports high phosphorus levels; started on sevelamer a few weeks ago. - Experiences significant weight gain between dialysis sessions; reports constant hunger and thirst. - Discussed Ozempic and Mounjaro with OCCUPATIONAL THERAPY INSTRUCTOR for appetite control. - [facility]. - Taking vitamin D, increased to 3 pills daily. CAD: - HI in March, with stent placement in LAD. - Reports nausea, weakness, and difficulty walking during HI. - Underwent stress test post-HI. - Taking aspirin daily. - On metoprolol succinate 25 mg daily and amlodipine. - Stopped lisinopril due to lack of refills. Pulmonary Edema: - Developed pulmonary edema post-HI, requiring BiPAP for a week. - Denies current asthma symptoms; not taking montelukast. Weight Management: - Current weight 202 lbs, down from 211 lbs. - Reports weight fluctuations due to fluid retention and dialysis. 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 - Enjoys outdoor activities like fishing and riding a 4-vick. - Describes self as lazy and does not engage in regular exercise. - Sleeps well and denies significant stress. 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 Social History Tobacco Use Smoking status: Never Smokeless tobacco: Never Substance Use Topics Alcohol use: No Drug use: No Past medical history, appointments, medications, allergies reviewed. Pertinent Lab/Diagnostic Studies are reviewed and discussed today Current Outpatient Medications: DEXCOM G6 SENSOR aiden OMNIPOD 5 G6-G7 PODS, GEN 5, crtg sevelamer carbonate (RENVELA) 800 mg tablet Acetone, Urine, Test (KETONE URINE TEST) blood sugar diagnostic (FREESTYLE LITE STRIPS) test strip MEDICAL SUPPLY [facility].Gluc.Intol,Lac-Free,Soy (GLUCERNA SHAKE) liqd rosuvastatin (CRESTOR) 20 mg tablet insulin aspart U-100 (NOVOLOG FLEXPEN U-100 INSULIN) 100 unit/mL (3 mL) alcohol swabs padm Insulin Triangle, Disposable, (BD ULTRA-FINE CAROL PEN NEEDLE) 32 gauge x 5/32 ndle Zn Aatedne-Dwwtosczcmx-Qiy (AMERIGEL) gel metoprolol succinate ER (TOPROL XL) 25 mg 24 hr tablet amLODIPine (NORVASC) 5 mg tablet Cholecalciferol, Vitamin D3, 125 mcg (5,000 unit) cap insulin glargine (LANTUS SOLOSTAR, BASAGLAR KWIKPEN) 100 unit/mL (3 mL) glucose 4 gram chewable tablet lancets (FREESTYLE LANCETS) 28 gauge [facility] Maintenance Depression Screening Anxiety Screening BP Controlled (<130/80) Pneumococcal Vaccine(2 of 2 - PCV) DTaP,Tdap,Td Vaccine(1 - Tdap) Dilated Retinal Exam Diabetic Foot Exam LDL Cholesterol Annual PCP Team Chronic Disease Visit HbA1C Influenza Vaccine(1) Covid-19 Vaccine( season)@ Review Of Systems Constitutional: (+) fatigue Musculoskeletal: (+) foot pain Skin: (+) itching Endocrine: (+) increased thirst, (+) increased hunger Physical Exam BP 118/66 Pulse 90 Ht 180 cm (5' 10.87) Wt 91.6 kg (202 lb) SpO2 97% BMI 28.28 kg/m? GENERAL: NAD, alert and oriented. SKIN: Unremarkable, no rash or skin lesions. HEAD: Normocephalic. EYES: PERRLA, EOMI, conjunctiva clear. EARS: External ears normal, canals clear, TM's normal. NOSE/SINUSES: Nares normal. Septum midline. OROPHARYNX: Lips, mucosa, and tongue normal, good dentition. No oral lesions noted. NECK: Supple, no lymphadenopathy, normal thyroid, no carotid bruits. LUNGS: Clear to auscultation bilaterally, no wheezes/rhonchi/rales. HEART: Regular rate and rhythm, no murmurs. No ectopy. EXTREMITIES: Normal, no deformities, no skin discoloration, no edema. NEURO: Awake, alert and oriented x3, cranial nerves II-XII grossly intact, normal gait, no involuntary motions. Labs: - Serum phosphorus: Elevated Tests: - Stress test: No specific results discussed Imaging: - Ultrasound (Arteriovenous fistula): Multiple branches noted, including one branch that rejoined the same vein, potentially contributing to inadequate clearance during dialysis Assessment and Plan 1. Annual physical exam (Z00.00) - Completed comprehensive physical examination. - Discussed current health status, including management of chronic conditions and recent medical history. 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 2. Obstructive sleep apnea (adult) (pediatric) ( (more content not included)... [facility]03-18-2025 History of Present illness Narrative* Kristal Sullivan MD - 06/15/2024 1:26 PM EDT Reason for Visit Laurie is a 43-year-old male with a history of type 1 diabetes, CKD, and CAD, presenting for follow-up. HPI Type 1 Diabetes: - Managed with Omnipod insulin pump and CGM. - Under the care of Dr. Ko, seen every 3 months. - Denies changes in foot sensation; feet checked daily at dialysis. CKD: - On dialysis every 3 days for 6 hours. - Reports high phosphorus levels; started on sevelamer a few weeks ago. - Experiences significant weight gain between dialysis sessions; reports constant hunger and thirst. - Discussed Ozempyusuf and Mounedero with OCCUPATIONAL THERAPY INSTRUCTOR for appetite control. - On kidney and pancreas [facility]. - Taking vitamin D, increased to 3 pills daily. CAD: - HI in March, with stent placement in LAD. - Reports nausea, weakness, and difficulty walking during HI. - Underwent stress test post-HI. - Taking aspirin daily. - On metoprolol succinate 25 mg daily and amlodipine. - Stopped lisinopril due to lack of refills. Pulmonary Edema: - Developed pulmonary edema post-HI, requiring BiPAP for a week. - Denies current asthma symptoms; not taking montelukast. Weight Management: - Current weight 202 lbs, down from 211 lbs. - Reports weight fluctuations due to fluid retention and dialysis. 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 - Enjoys outdoor activities like fishing and riding a 4-vick. - Describes self as lazy and does not engage in regular exercise. - Sleeps well and denies significant stress. 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 Social History Tobacco Use Smoking status: Never Smokeless tobacco: Never Substance Use Topics Alcohol use: No Drug use: No Past medical history, appointments, medications, allergies reviewed. Pertinent Lab/Diagnostic Studies are reviewed and discussed today Current Outpatient Medications: DEXCOM G6 SENSOR aiden OMNIPOD 5 G6-G7 PODS, GEN 5, crtg sevelamer carbonate (RENVELA) 800 mg tablet Acetone, Urine, Test (KETONE URINE TEST) blood sugar diagnostic (FREESTYLE LITE STRIPS) test strip MEDICAL SUPPLY [facility].Ny.Gluc.Intol,Lac-Free,Soy (GLUCERNA SHAKE) liqd rosuvastatin (CRESTOR) 20 mg tablet insulin aspart U-100 (NOVOLOG FLEXPEN U-100 INSULIN) 100 unit/mL (3 mL) alcohol swabs padm Insulin Triangle, Disposable, (BD ULTRA-FINE CAROL PEN NEEDLE) 32 gauge x 5/32 ndle Zn Wxsvars-Ttxkejlepwk-Tzb (AMERIGEL) gel metoprolol succinate ER (TOPROL XL) 25 mg 24 hr tablet amLODIPine (NORVASC) 5 mg tablet Cholecalciferol, Vitamin D3, 125 mcg (5,000 unit) cap insulin glargine (LANTUS SOLOSTAR, BASAGLAR KWIKPEN) 100 unit/mL (3 mL) glucose 4 gram chewable tablet lancets (FREESTYLE LANCETS) 28 gauge [facility] Maintenance Depression Screening Anxiety Screening BP Controlled (<130/80) Pneumococcal Vaccine(2 of 2 - PCV) DTaP,Tdap,Td Vaccine(1 - Tdap) Dilated Retinal Exam Diabetic Foot Exam LDL Cholesterol Annual PCP Team Chronic Disease Visit HbA1C Influenza Vaccine(1) Covid-19 Vaccine( season)@ Review Of Systems Constitutional: (+) fatigue Musculoskeletal: (+) foot pain Skin: (+) itching Endocrine: (+) increased thirst, (+) increased hunger Physical Exam BP 118/66 Pulse 90 Ht 180 cm (5' 10.87) Wt 91.6 kg (202 lb) SpO2 97% BMI 28.28 kg/m GENERAL: NAD, alert and oriented. SKIN: Unremarkable, no rash or skin lesions. HEAD: Normocephalic. EYES: PERRLA, EOMI, conjunctiva clear. EARS: External ears normal, canals clear, TM's normal. NOSE/SINUSES: Nares normal. Septum midline. OROPHARYNX: Lips, mucosa, and tongue normal, good dentition. No oral lesions noted. NECK: Supple, no lymphadenopathy, normal thyroid, no carotid bruits. LUNGS: Clear to auscultation bilaterally, no wheezes/rhonchi/rales. HEART: Regular rate and rhythm, no murmurs. No ectopy. EXTREMITIES: Normal, no deformities, no skin discoloration, no edema. NEURO: Awake, alert and oriented x3, cranial nerves II-XII grossly intact, normal gait, no involuntary motions. Labs: - Serum phosphorus: Elevated Tests: - Stress test: No specific results discussed Imaging: - Ultrasound (Arteriovenous fistula): Multiple branches noted, including one branch that rejoined the same vein, potentially contributing to inadequate clearance during dialysis Assessment and Plan 1. Annual physical exam (Z00.00) - Completed comprehensive physical examination. - Discussed current health status, including management of chronic conditions and recent medical history. 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 2. Obstructive sleep apnea (adult) (pediatric) (G47.33) - Managed with BiPAP machine. - Continue current treatment. 3. Essential (primary) hypertension (I10) - Blood pressure management with metoprolol succinate once daily and amlodipine. - Advised to reduce amlodipine to the lowest dose of 2.5 mg and attempt discontinuation. - Emphasized the importance of continuing metoprolol for cardiac health. 4. jail (current) use of insulin (HCC) (Z79.4) - Managed with Omnipod insulin delivery system and continuous glucose monitoring. - Follow-up with Dr. Ko every 3 months for diabetes management. - Discussed appetite suppression; Mounjaro and Ozempic not recommended for Type 1 diabetes. 5. Pruritus (L29.9) - Experiencing pruritus at the site of dialysis bandage. - Initiated Benadryl with noted improvement. - Continue Benadryl as needed. 6. Dependence on renal dialysis (HCC) (Z99.2) 7. End stage renal disease (HCC) (N18.6) - Undergoing dialysis every 3 days. - Recent ultrasound of AV fistula showed multiple branches; follow-up appointment on the to address vascular flow issues. - Taking sevelamer as a phosphate binder. - [facility]. - Continue current dialysis regimen and follow-up with transplant team. Voice recognition software was used to compose this office note. Please excuse any unintended typographical errors. The patient consented to the use of ambient AI software for draft documentation of the visit consistent with [facility] s Notice of Privacy Practices. Kristal Sullivan MD documented in this encounterL[facility]03-[facility] History of Present illness Narrative* Rukhsana Hernandez RPh - 06/04/2024 1:44 PM EST I have reviewed the patient s medication profile and there are no identified medication issues thatwould preclude transplant in this patient. Rukhsana Hernandez PharmD documented in this encounterL[facility]03-[facility]-2025 NoteHNO ID: [id number] Author: RUKHSANA HERNANDEZ RPh Service: ? Author Type: Pharmacist Type: Progress Notes Filed: 06/04/2024 13:45 Note Text: I have reviewed the patient?s medication profile and there are no identified medication issues that would preclude transplant in this patient. [facility] NoteHNO ID: [id number] Author: CIARRA CATALAN LISW Service: ? Author Type: Family Assistant Type: Progress Notes Filed: 06/03/2024 11:29 Note Text: Psychosocial Abstract: Social Supports: Pt has support from his mother and ex-. Financial Concerns: [employer] Medicaid Compliance: Pt is not dialysis dependent at this time. -Pt's EMR does indicate past non-compliance with medication. Pt admitted to medication non-compliance for several years. Pt reports he has been compliant for 3yrs.. Pt needs to continue to ensure medication compliance. This will be monitored by SW reviewing pt's EMR. -Pt currently has a CC No Show rate of 31% (52 of 167.) Pt needs to ensure he attend all medical appointments at as scheduled. This will be monitored by SW reviewing pt's EMR. Mental Health: No mental health concerns at this time. Substance Use: No current concerns regarding ETOH abuse, street drug use or tobacco use. SIPAT: 17 At this time, pt is a moderate psychosocial candidate due to past history of non compliance. JUSTIN Andrews-S Transplant Social WorkerD[facility]03-[facility] History of Present illness Narrative* Ciarra Catalan LISW - 06/03/2024 11:26 AM EST Psychosocial Abstract: Social Supports: Pt has support from his mother and ex-. Financial Concerns: [employer] Medicaid Compliance: Pt is not dialysis dependent at this time. -Pt's EMR does indicate past non-compliance with medication. Pt admitted to medication non-compliance for several years. Pt reports he has been compliant for 3yrs.. Pt needs to continue to ensure medication compliance. This will be monitored by SW reviewing pt's EMR. -Pt currently has a CC No Show rate of 31% (52 of 167.) Pt needs to ensure he attend all medical appointments at as scheduled. This will be monitored by SW reviewing pt's EMR. Mental Health: No mental health concerns at this time. Substance Use: No current concerns regarding ETOH abuse, street drug use or tobacco use. SIPAT: 17 At this time, pt is a moderate psychosocial candidate due to past history of non compliance. JUSTIN Andrews-Kaylen Transplant Family Assistant documented in [facility] encounterL[facility]02-28-[facility]25 NoteHNO ID: [id number] Author: VIANEY ROMO MA Service: ? Author Type: Global Sourcing Manager Type: Progress Notes Filed: 05/28/2024 12:59 Note Text: My Chart message sent to patient.[facility]02-28-2025 History of Present illness Narrative* Vianey Romo MA - 05/28/2024 12:59 PM EST My Chart message sent to patient. * Kayla Tanner LPN - 05/28/2024 11:29 AM EST Appt arranged with pcp . any labs due before appt? Will have to send pt a my chart message to advise of any labs * Kayla Tanner LPN - 05/24/2024 2:19 PM EST Pt has reviewed the my chart message. * Kayla Tanner LPN - 05/21/2024 12:00 PM EST My chart message to pt to call for an appt to review diabetes. documented in this encounterLima City Hospital02-28-2025 NoteHNO ID: [id number] Author: KAYLA TANNER LPN Service: ? Author Type: LICENSED NURSE Type: Progress Notes Filed: 05/28/2024 12:59 Note Text: Appt arranged with pcp . any labs due before appt? Will have to send pt a my chart message to advise [facility] [id number] Telephone encounter Note* Telephone Encounter - Ciarra Catalan LISW - 05/25/2024 3:21 PM EST SW received a phone call from pt's mother Page ([phone]) regarding support. SW reviewed the follow up care sequence, including lab work twice a week and twice a week post transplant clinic appointments. SW also discussed the need to have a caregiver [employer] for 2 weeks post transplant. Page reports being 66yrs old and she is retired. Page stated she is available whenever needed to assist with caregiver / transportation support. Page verified her commitment to help pt post transplant. WILBUR Andrews Transplant Family Assistant [facility] Work Phone: [phone] Miscellaneous Notes* Telephone Encounter - Ciarra Catalan LISW - 05/25/2024 3:21 PM EST SW received a phone call from pt's mother Page ([phone]) regarding support. SW reviewed the follow up care sequence, including lab work twice a week and twice a week post transplant clinic appointments. SW also discussed the need to have a caregiver [employer] for 2 weeks post transplant. Page reports being 66yrs old and she is retired. Page stated she is available whenever needed to assist with caregiver / transportation support. Page verified her commitment to help pt post transplant. WILBUR Andrews Transplant Family Assistant * Telephone Encounter - Ciarra Catalan LISW - 05/25/2024 3:15 PM EST ADITHYA called pt in preparation of selection committee. ADITHYA reminded pt that his primary and backup support still needs to be verified. SW requested that they contact SW as soon as possible to verify their commitment. SW informed pt that verification is the only thing that is needed before he is presented to the committee. Pt verbalized understanding. SW will await phone calls. documented in this encounterLima City Hospital02-25-2025 Telephone encounter Note * Telephone Encounter - Ciarra Catalan LISW - 05/25/2024 3:15 PM EST SW called pt in preparation of selection committee. SW reminded pt that his primary and backup support still needs to be verified. SW requested that they contact SW as soon as possible to verify their commitment. SW informed pt that verification is the only thing that is needed before he is presented to the committee. Pt verbalized understanding. SW will await phone calls. [facility]02-24-[facility]25 NoteHNO ID: [id number] Author: KAYLA TANNER LPN Service: ? Author Type: LICENSED NURSE Type: Progress Notes Filed: 05/28/2024 12:59 Note Text: Pt has reviewed the my chart message.[facility]02-21-2025 Note HNO ID: [id number] Author: KAYLA TANNER LPN Service: ? Author Type: LICENSED NURSE Type: Progress Notes Filed: 05/28/2024 12:59 Note Text: My chart message to pt to call for an appt to review diabetes.[facility]02-21-2025 NotePatient Outreach (INTMWS) LAURIE GONZALES ([id number]) 1980 M Date Time Provider Department 05/21/24 KRISTAL SULLIVAN INTDominickWS During your visit today, we recorded the following information about you: Kayla Tanner LPN 05/28/2024 12:59 PM Signed My chart message to pt to call for an appt to review diabetes. Kayla Tanner LPN 05/28/2024 12:59 PM Signed Pt has reviewed the my chart message. Kayla Tanner LPN 05/28/2024 12:59 PM Signed Appt arranged with pcp . any labs due before appt? Will have to send pt a my chart message to advise of any labs Vianey Romo MA 05/28/2024 12:59 PM Signed My Chart message sent to patient. Allergies As of Date: 05/21/2024 Noted Allergy Reaction SEASONAL ALLERGIES 11/17/2014 5 - Intolerance Date Reviewed: 04/12/2024 Reviewed by: Ira Osorio, RT(R) - Partially Assessed Reason for Visit: Diabetes [34] Primary Visit Diagnosis:Type 1 diabetes mellitus with other specified complication (HCC) [E10.69] Order(s):HEMOGLOBIN A1C [NAQZZ2B] Order #: [id number] STANDING COMPREHENSIVE METABOLIC PANEL [SQCMP] Order #: [id number] STANDING COMPLETE BLOOD COUNT [SQCBC] Order #: [id number] STANDING THYROID STIMULATING HORMONE [SQTSH] Order #: [id number] STANDING LIPID PANEL BASIC [SQLIPB] Order #: [id number] STANDING Prescriptions as of 05/28/2024 - Acetone, Urine, Test (KETONE URINE TEST) 1 Strip as directed. DX E10.65 E10.3599 - blood sugar diagnostic (FREESTYLE LITE STRIPS) test strip Test blood sugar 10 times daily . Dx. E10.3599 E10.65, Insulin: yes - MEDICAL SUPPLY Blood pressure machine - carvedilol (COREG) 12.5 mg tablet Take [...] 4 tablets by mouth as needed. - Ketone Blood Test ([employer] XTRA B-KETONE) strp Test KETONES as directed. [...] AFFECTED AREA FIVE TIMES DAILY - Insulin Triangle, Disposable, (BD ULTRA-FINE CAROL PEN NEEDLE) 32 gauge x 5/32 ndle Use one needle for each dose. 7/day. - Zn Gklpeau-Mpgyjwrsyim-Edt (AMERIGEL) gel Apply 1 application to affected area twice daily. - lancets (FREESTYLE LANCETS) 28 gauge misc Test blood sugar four times daily 250.00 - sildenafil (VIAGRA) 100 mg tablet Take 0.5 tablets by mouth as needed. 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 SW reminded pt that both his primary and backupsupport needs to be verified. SW requested that they contact SW to verify their commitment. Pt verbalized understanding. SW will await phone calls. WILBUR Andrews Transplant Family Assistant [facility] Work Phone: 1(506) 161-975501-30-2025 Miscellaneous Notes* Telephone Encounter - Ciarra Catalan LISW - 04/29/2024 10:47 AM EST SW called pt in preparation of selection committee. SW reminded pt that both his primary and backupsupport needs to be verified. SW requested that they contact SW to verify their commitment. Pt verbalized understanding. SW will await phone calls. WILBUR Andrews Transplant Family Assistant documented in this encounterLima City Hospital01-24-2025 Evaluation note* Diagnosis Onset Date Resolution Status Admit Date AV fistula acute April 23, 2024 8:10am ESRD (end stage renal diseas e) on dialysis acute April 23 8:10am Malfunction of arteriovenous dialysis fistula acute June 18 11:17am [facility] Work Phone: 1(414) 186-661601-24-2025 Evaluation note* Diagnosis Onset Date Resolution Status Admit Date AV fistula acute April 23, 2024 8:10am ESRD (end stage renal diseas e) on dialysis acute April 23 8:10am Malfunction of arteriovenous dialysis fistula acute June 18 11:17am DM type 1 (diabetes mellitus , type 1) chronic July 28, 2024 10:36am Hyperlipidemia chronic June 10:36am Hypertension chronic July 28, 2024 10:36am Insulin pump titration chronic Ap ril 2024 10:36am Overweight chronic July 28 10:36am Presence of insulin pump chronic July 28, 2024 10:36am Vitamin D deficiency chronic Apri l 2024 10:36am AV fistula acute August 05, 2024 10:47am [facility] Work Phone: 1(634) 674-858701-24-2025 Evaluation note* Diagnosis Onset Date Resolution Status Admit Date AV fistula acute April 23, 2024 8:10am ESRD (end stage renal diseas e) on dialysis acute April 23 8:10am Malfunction of arteriovenous dialysis fistula acute June 18 11:17am DM type 1 (diabetes mellitus , type 1) chronic July 28, 2024 10:36am Hyperlipidemia chronic June 10:36am Hypertension chronic July 28, 2024 10:36am Insulin pump titration chronic Ap ril 2024 10:36am Overweight chronic July 28 10:36am Presence of insulin pump chronic July 28, 2024 10:36am Vitamin D deficiency chronic Apri l 2024 10:36am AV fistula acute August 05, 2024 10:47am Chest pain acute August 10, 2024 11:09pm Dyspepsia acute August 10, 2024 11:09pm Elevated troponin acute July 11:09pm [facility] Work Phone: 1(313) 324-611501-24-2025 Evaluation note* Diagnosis Onset Date Resolution Status Admit Date AV fistula acute April 23, 2024 8:10am ESRD (end stage renal diseas e) on dialysis acute April 23 8:10am Malfunction of arteriovenous dialysis fistula acute June 18 11:17am DM type 1 (diabetes mellitus , type 1) chronic July 28, 2024 10:36am Hyperlipidemia chronic June 10:36am Hypertension chronic July 28, 2024 10:36am Insulin pump titration chronic Ap ril 2024 10:36am Overweight chronic July 28 10:36am Presence of insulin pump chronic July 28, 2024 10:36am Vitamin D deficiency chronic Apri l 2024 10:36am AV fistula acute August 05, 2024 10:47am ESRD (end stage renal diseas e) on dialysis acute August 10, 2024 1 1:09pm Chest pain resolved August 10, 2024 11:09pm Dyspepsia resolved August 10, 2024 11:09pm Elevated troponin inactive July 11:09pm Dysphagia acute August 17, 2024 2:27pm Odynophagia acute August 17 2:27pm [facility] [employer] Work Phone: 1(850) 384-257601-13-2025 History of Present illness Narrative* Ira Osorio RT(R) - 04/12/2024 8:30 AM EST RADIOLOGY SERVICE PROGRESS NOTE SERVICE DATE: 04/12/2024 SERVICE TIME: 08:10 AM PATIENT IDENTITY VERIFICATION COMPLETED USING TWO (2) STANDARD IDENTIFIERS: Name and Date of confirmed by patient verbally FALL SCREENING: Has the patient had 2 falls in the last year or 1 fall with injury or currently using an Ambulatory Assistive Device (Walker, Cane, Wheelchair, Crutches, etc.)? No PATIENT GENDER DATA: .male ALLERGIES: Reviewed and unchanged MEDICATIONS REVIEWED: No PATIENT RELEVANT IMPLANT DATA REVIEWED: Not Applicable PATIENT PRESENTS WITH AN IMPLANTABLE OR ATTACHED VISUAL C DEVELOPER: n/a CREATININE: Creatinine Date Value Ref Range Status 08/28/2023 4.37 (H) 0.73 - 1.22 mg/dL Final 04/26/2022 2.35 (H) 0.73 - 1.22 mg/dL Final 02/09/2021 1.76 (H) 0.73 - 1.22 mg/dL Final Estimated Glomerular Filtration Rate Date Value Ref Range Status 08/28/2023 17 (L) >=60 mL/min/1.73m Final Comment: Estimated Glomerular Filtration Rate (eGFR) is calculated using the 2020 CKD-EPI creatinine equation. This equation utilizes serum creatinine, sex, and age as parameters. The creatinine assay has traceable calibration to isotope dilution- mass spectrometry. Refer to KDIGO guidelines for clinical interpretation. In patients with unstable renal function, e.g. those with acute kidney injury, the eGFRmay not accurately reflect actual GFR. eGFR- Date Value Ref Range Status 02/09/2021 53 Final P.O.C.T. RESULTS: N/A April 12, [address] PERFORMED: No IV SITE: Ambulatory: A peripheral IV was started in the Right hand with a Angio cath: 22 gauge. POST EXAM PIV STATUS: Discontinued PROCEDURE TYPE: NM Stress: 14.2 mCi [id number]-Oejlbcc was administered IV for Rest Imaging at 08:20 by Ira Osorio. 34.8 mCi Sz52v-Bongkdu was administered IV for Stress Imaging at 09:32 by Ira Osorio. PATIENT DISCHARGED TO: Ambulatory patient, left [place] department area. Is this a therapy: No A Diagnostic radioactive procedure has taken place, with no further precautions necessary other than routine body substance precautions. More information regarding radiation safety can be found usingthis link: [email or web address]%20Medicine%[email or web address] SIGNATURE: RT Cooper (R) PATIENT NAME: Laurie Gonzales DATE: April 12, 2024 TIME: 11:11 AM PAGER/CONTACT #: documented in this encounterLima [facility]01-13-2025 NoteHNO ID: [id number] Author: IRA OSORIO RT (R) Service: Nuclear Medicine Author Type: Technologist Type: Progress Notes Filed: 04/12/2024 11:12 Note Text: RADIOLOGY SERVICE PROGRESS NOTE SERVICE DATE: 04/12/2024 SERVICE TIME: 08:10 AM PATIENT IDENTITY VERIFICATION COMPLETED USING TWO (2) STANDARD IDENTIFIERS: Name and Date of confirmed by patient verbally FALL SCREENING: Has the patient had 2 falls in the last year or 1 fall with injury or currently using an Ambulatory Assistive Device (Walker, Cane, Wheelchair, Crutches, etc.)? No PATIENT GENDER DATA: .male ALLERGIES: Reviewed and unchanged MEDICATIONS REVIEWED: No PATIENT RELEVANT IMPLANT DATA REVIEWED: Not Applicable PATIENT PRESENTS WITH AN IMPLANTABLE OR ATTACHED VISUAL C DEVELOPER: n/a CREATININE: Creatinine Date Value Ref Range Status 08/28/2023 4.37 (H) 0.73 - 1.22 mg/dL Final 04/26/2022 2.35 (H) 0.73 - 1.22 mg/dL Final 02/09/2021 1.76 (H) 0.73 - 1.22 mg/dL Final Estimated Glomerular Filtration Rate Date Value Ref Range Status 08/28/2023 17 (L) >=60 mL/min/1.73m? Final Comment: Estimated Glomerular Filtration Rate (eGFR) is calculated using the 2020 CKD-EPI creatinine equation. This equation utilizes serum creatinine, sex, and age as parameters. The creatinine assay has traceable calibration to isotope dilution-mass spectrometry. Refer to KDIGO guidelines for clinical interpretation. In patients with unstable renal function, e.g. those with acute kidney injury, the eGFR may not accurately reflect actual GFR. eGFR- Date Value Ref Range Status 02/09/2021 53 Final P.O.C.T. RESULTS: N/A April 12, [address] PERFORMED: No IV SITE: Ambulatory: A peripheral IV was started in the Right hand with a Angio cath: 22 gauge. POST EXAM PIV STATUS: Discontinued PROCEDURE TYPE: NM Stress: 14.2 mCi Wx38y-Dbffihr was administered IV for Rest Imaging at 08:20 by Ira Osorio. 34.8 mCi Hy83o-Emgovux was administered IV for Stress Imaging at 09:32 by Ira Osorio. PATIENT DISCHARGED TO: Ambulatory patient, left [place] department area. Is this a therapy: No A Diagnostic radioactive procedure has taken place, with no further precautions necessary other than routine body substance precautions. More information regarding radiation safety can be found using this link: [email or web address]%20Medicine%[email or web address] SIGNATURE: RT Kenneth(R) PATIENT NAME: Laurie Gonzales DATE: April 12, 2024 TIME: 11:11 AM PAGER/CONTACT #:[facility]01-08-2025 Telephone encounter Note* Telephone Encounter - Willie Gonzalez RN - 04/07/2024 3:15 PM EST Nuc pharm stress test instructions provided to patient via [facility] msg. [facility]01-08-2025 Miscellaneous Notes* Telephone Encounter - Willie Gonzalez RN - 04/07/2024 3:15 PM EST Nuc pharm stress test instructions provided to patient via msg. documented in this encounterLima City Hospital11-27-2024 Evaluation note* Diagnosis Onset Date Resolution Status Admit Date Decreased pedal pulses acute No 2023 9:03am History of coronary artery stent placement chronic February 24, 9:03am Hyperlipidemia chronic January 302023 9:03am Hypertension chronic January 9:03am DM type 1 (diabetes mellitus , type 1) acute February 24, 10:19am Hyperlipidemia chronic January 302023 10:19am Hypertension chronic January 10:19am Insulin pump titration chronic No 2023 10:19am Presence of insulin pump chronic February 25, 2024 10:19am Vitamin D deficiency chronic Nove [facility] 2023 10:19am AV fistula acute April 23, 2024 8:10am ESRD (end stage renal diseas e) on dialysis acute April 23 8:10am Malfunction of arteriovenous dialysis fistula acute June 18 11:17am [facility] Work Phone: 1(757) 868-949911-12-2024 Telephone encounter Note* Telephone Encounter - Roro Pollard RN - 02/10/2024 10:07 AM EST I spoke with Mr Gonzales who informed me d/t his insurance not covering his nuclear stress test he was told by the schedulers they are pushing him through anyway's and will be discussed by the selection committee. I unfortunately had to to tell Mr Gonzales that is not the case and I'm sorry he was misinformed. He will need a nuclear stress in order to move forward. I let him know I will follow upwith our healthcare financial analyst to assist and give him a call. Mr Gonzales acknowledged understanding. Roro Pollard RN [facility]11-12-2024 Miscellaneous Notes* Telephone Encounter - Roro Pollard RN - 02/10/2024 10:07 AM EST I spoke with Mr Gonzales who informed me d/t his insurance not covering his nuclear stress test he was told by the schedulers they are pushing him through anyway's and will be discussed by the selection committee. I unfortunately had to to tell Mr Gonzales that is not the case and I'm sorry he was misinformed. He will need a nuclear stress in order to move forward. I let him know I will follow upwith our healthcare financial analyst to assist and give him a call. Mr Gonzales acknowledged understanding. Roro Pollard RN * Telephone Encounter - Genet Persaud - 02/06/2024 3:07 PM EST Patient called regarding an update . Requesting a return call from the charter coordinator. Please call him at [phone]. Genet Persaud documented in this encounterLima City Hospital11-08-2024 Telephone encounter Note * Telephone Encounter - Genet Persaud - 02/06/2024 3:07 PM EST Patient called regarding an update . Requesting a return call from the charter coordinator. Please call him at [phone]. Genet Persaud [facility] Work Phone: [phone]) [phone] [facility]06-03-2024 History of Present illness Narrative* Roro Pollard (TxpKANDACE Norris - 09/01/2023 9:53 AM EDT I left a detailed vm for Mr Gonzales. 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 Phone number provided Roro Pollard RN documented in this encounterLima City Hospital05-30-2024 History of Present illness Narrative* Ronen Eldridge MD - 08/28/2023 4:00 PM EDT [facility] [place] [facility] Transplant Evaluation CC: Consultation for Kidney/Pancreas transplant evaluation. Referred by: DR. Vivek Diaz- Kidney [address] [facility] [address] I will communicate with the referring provider by letter and/or shared electronic medical record. HPI: Mr Laurie Gonzales is a 43 y/o gentleman with CKD stage 5, GFR 13%. Recently had his fistulaplaced but has not initiated dialysis treatments to date. Cause of disease is diabetes type I sinceage 18, has an insulin pump and hx of poorly controlled hypertension. Patient also has Charcot footdue to his diabetes mellitus Renal biopsy: never had a bx performed Patient presents ambulatory without assistive devices. 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 Took oral agents for his DM DM I UTI: No Kidney stones: No Chronic anti-coagulation: No Midodrine: No If yes, frequency: What is your blood pressure in between dialysis sessions?: Abdominal surgeries: No Cardiovascular Disease?: No Peripheral Arterial Disease (TIA non-embolic, CVA non-embolic, amputation, abnormal PVRs, decreasedpulses, etc): No Stroke: No Claudication: No Carotid Artery Stenosis: No DM: Yes Diagnosed at age 18 and Type 1 Diabetic ulcers or chronic wounds: No Prior transplant: No CKD: Yes: Cause of CKD: DM Living Donors: No Residual UO: yes Hypercoagulable (hx of DVT/PE, miscarriages, prior use of anticoagulation, etc): No Malignancy (including skin cancer): No Last hospitalization: may for fluid overload, administtered Lasix and disharged home the next day PAST MEDICAL HISTORY Diagnosis Date Acute gastritis [...] Laterality Date EGD TRANSORAL BIOPSY SINGLE/MULTIPLE 10/09/11 Current Outpatient Medications Medication Sig Acetone, Urine, Test (KETONE URINE TEST) 1 Strip as directed. DX E10.65 E10.3599 blood sugar diagnostic (FREESTYLE LITE STRIPS) test [...] Take 4 tablets by mouth as needed. Ketone Blood Test ([employer] XTRA B-KETONE) strp [...] TO AFFECTED AREA FIVE TIMES DAILY Insulin Triangle, Disposable, (BD ULTRA-FINE CAROL PEN NEEDLE) 32 gauge x 5/32 ndle Use one needle for each dose. 7/day. Zn Nltqffd-Otmfhculeol-Vnq (AMERIGEL) gel Apply 1 application to affected area twice daily. (Patient not taking: No sig reported) lancets (FREESTYLE LANCETS) 28 gauge misc Test blood sugar four times daily 250.00 sildenafil (VIAGRA) 100 mg tablet Take 0.5 tablets by mouth as needed. Take 30 to 60min before sexual activity (Patient not taking: No sig reported) No current facility-administered medications for this visit. FAMILY HISTORY Problem Relation Age of Onset Diabetes Mother Hypertension Mother Heart Mother other (skin cancer) Father Diabetes Maternal Grandfather other (skin cancer) Paternal Grandfather Diabetes Paternal Grandmother Psychiatry Brother Family Status Relation Name Status Mo Alive Fa MGFa (Not Specified) PGFa (Not Specified) PGMo (Not Specified) Bro (Not Specified) Social History Tobacco Use Smoking status: Never Smokeless tobacco: Never Substance Use Topics Alcohol use: No Drug use: No Pre-transplant testing: Cardiac: STRESS TEST 05/2023 [facility] ECHOCARDIOGRAM 07/02/2023 Interpretation/Summary Normal LV size Left ventricular systolic function is normal The estimated ejection fraction is 55% Normal diastolic for age EKG 07/01/2023 Normal sinus rhythm ventricular rate of [address] ABD/PEL WO IVCON 08/28/2023 PROCESSING KIDNEY/BLADDER US 07/02/2023 (ce) FINDINGS: RIGHT KIDNEY: 10.9 cm in length with a cortical thickness of 1.9 cm. Contour and echogenicity unremarkable. No hydronephrosis. No gross renal mass demonstrated. LEFT KIDNEY: 11.3 cm in length with a cortical thickness of 1.4 cm. Contour and echogenicity unremarkable. No hydronephrosis. No gross renal mass demonstrated. URINARY BLADDER: Unremarkable at 318 cc with a 3 mm wall thickness. IMPRESSION: Unremarkable examination of the kidneys. CXR: 07/01/2023 (ce) FINDINGS: There is evidence of vascular congestion and mild degree of CHF with bibasilar atelectasis. Blunting of the costophrenic angles bilaterally. There is borderline cardiomegaly. Normal mediastinum and yamini. Normal visualized pulmonary arteries. Normal visualized aortic arch and descending thoracic aorta. Normal visualized thoracic spine. Normal visualized ribs, clavicles, and shoulders. There is no demonstrated abnormality of the visualized soft tissue structures of the upper abdomen. IMPRESSION: Findings suggestive of mild degree of CHF with bibasilar atelectasis. PAP Test: Not applicable Mammogram: Not applicable Colonoscopy: Not applicable Sensitizations: Prior transplant: No Blood transfusions: No Rabbit: No Immunizations: HBV series: Received, date never done Pneumovax: Received, date never done Influenza vaccine: Received, date 10/30/2023 Covid vaccine: Received, date 11/29/2022 Roro Pollard RN Exclusion criteria for HCV organs (IF POTENTIAL RECIPIENT MEETS ANY OF THESE CRITERIA, THEY ARE EITHER NOT ELIGIBLE, OR THEY MUST SEE HEPATOLOGY FOR INFORMED CONSENT) [] HCV-RNA positive (such individuals may receive HCV donor positive organs, but are not part of this D+/R- program) [] HIV Infection [] Evidence of cirrhosis by imaging or biopsy [] or lactating women [] Prior surgery with altered gastroduodenal anatomy (Gastric bypass, Gastric sleeve) [] Required continued use of certain medications that may interfere with DAA absorption including: [] Statins [] PPI if dose required is > 20mg per day [] Amiodarone [] Anticonvulsants/mood stabilizers (eg: carbamazepine, phenytoin, oxcarbazine) [] Digoxin [] Current severe systemic infection [] Current illicit drug use Informed Consent for the option of considering an HCV positive organ MUST CHOOSE ONE OF THE OPTIONS BELOW [x] Yes, the patient is interested. Laurie Gonzales wishes to pursue the option of obtaining a HCVpositive organ. Advantages and disadvantages of HCV viremic donor transplantation were reviewed. Patient received education on the risk of transmission of HCV following HCV viremic donor transplantation, the natural history of HCV, current therapies for HCV, side effects of therapy, and need for monitoring during and after therapy for HCV. Provided pt with educational slide packet and handout titled Transplantation of Hepatitis C Viremic Organs into Hepatitis C Negative Recipients. The risks of HCV transmission post-transplant, fibrosing cholestatic HCV, treatment failure, chronic HCV, cirrhosis and hepatic and non-hepatic manifestations of acute and chronic HCV were specifically discussed. Patient verbalized understanding of the risks and benefits of receiving a hepatitis C viremic organand provided verbal consent to be enrolled in the protocol. All their questions were answered. [] No, the patient is not interested in this option. [] The patient would like more time to consider this option. Patient has been educated and can callback regarding accepting or declining this option. Staff: I have interviewed the patient and confirmed the historical details above. HPI above by me. REVIEW OF SYSTEMS: All other reviewed and negative other than HPI. Functional capacity: >4.0, <8.0 moderate effort such as carrying 15lb KARNOFSKY INDEX SCALE (Adult patients aged 18 and older) - Used to rate a patient's functional status before and after a medical procedure: 90 - Able to carry on normal activity: minor signs or symptoms of disease. PHYSICAL EXAMINATION: There were no vitals taken for this visit. Head and neck: NAD op clear, no connie, no carotid bruits, nl thyroid CVS: rrr nls1s2 w/o mrg Lungs: cta bilat Abd: soft, nt, nd, bs+, no HSM; no abd bruits MS: no active synovitis, no muscle tenderness Skin: no skin lesions, no cyanosis no peripheral edema Vascular: preserved pulses, left forearm AVF Neuro: non focal Labs/Studies: Cancer Screening: Type of Cancer: Screening Criteria: Cervical Females age 21-29: PAP Q3yrs; HPV if PAP abnormal Females age 30-65: PAP & HPV Q5yrs; OR PAP only Q3yrs Breast Females age 20-39: Clinical Breast Exam Q3yrs Females age 40+: Mammogram & Clinical Breast Exam Q1yr Prostate Males age 40+: PSA will be checked at evaluation Colon All patients age 50+: colonoscopy Q10yrs or as recommended based on results Lung Patients meeting all of the following criteria will be scheduled for a Chest CT without Contrast at evaluation if they have not had a Chest CT within the past year: 1. Age 55-74 2. Have at least a 30 pack-year smoking history 3. Are still smoking OR have quit smoking within the last 15 yrs Patients that do not meet the criteria above or who had a Chest CT within the past year will have aCXR PA & Lat at evaluation. Skin All patients: Skin will be examined at evaluation Based upon the above screening criteria, the patient will require: No additional testing is needed at this time. Patient is up to date with cancer screening. Impression: 43 year old male here for evaluation of eligibility for kidney and pancreas transplantation due to a h/o CKD stage 5 secondary to DM1. Patient states he developed diabetes at the age of 18 when he was significantly overweight for which she was initially on oral hypoglycemics but eventually ended up with insulin needs. Patient lost significant amount of weight he claims to be a type I diabetic. We will check a C-peptide. The patient otherwise is active and walks daily, denies any history of HI, strokes, peripheral arterial disease, DVTs or PEs, or cancers. She needs to complete all testing. The patient is a good candidate for kidney and pancreas transplantation. We had the opportunity to discuss the following, specific for this patient: 1) Risks and benefits of transplantation including overall average increase in life expectancy and higher quality of life with transplantation for most recipients but not all; however, there is during the immediate transplant period a higher risk of over staying on dialysis that is variable depending on recipient and donor factors. 2) Types of donor organs, including possibility of living donors, donors, donor quality asassessed by KDPI (higher KDPI being lower quality with especial attention to those organs with KDPI>85%), hep C donors, donor after cardiac (DCD) and CDC Increased risk donor types, with relative benefit of living donation over donor transplantation explained. 3) Detailed discussion regarding immunosuppression following transplantation, including usual protocols and drugs involved. This included the risks of infection, possibly life threatening, and malignancy. We also discussed possible need for dialysis post-transplant and re-admission to the hospital. 4) Post-transplant care and compliance with medical treatment, noting that this is very important for optimal transplant outcomes. 5) Possible recurrence of disease which depending on condition it could lead to graft failure. Patient expresses understanding of the information discussed. Given his current issues, we plan: 1. Labs per protocol 2. c-peptide 3. Echo and stress test Opportunity to ask questions given. Appears to understand. Communication with referring provider done by letter. Ronen Eldridge MD [facility] Instructions* Patient Instructions* Roro Pollard RN (Txp) - 08/28/2023 3:01 PM EDT As part of your transplant evaluation you are required to complete the following additional items. Please be aware that your evaluation will not be considered complete until all testing has been submitted. YOU WILL NOT BE LISTED ON THE TRANSPLANT LIST until these results have been received by our office, reviewed by the transplant committee and approved for transplant. You will be contacted with the decision of the transplant committee at a future date. The following will be scheduled for you at a [facility] facility: CARDIAC: Nuclear stress test CANCER SCREENING: ADDITIONAL CONSULTS Imaging Studies: Miscellaneous Items: labs Outside test results should be faxed to [phone]. Please review the kidney transplant educational materials on line at [email or web address] Sign-in: Kidney To check on your status of your evaluation, please contact your coordinator, Roro Pollard RN [phone]. Roro Pollard RN Kidney/Pancreas Pre-Third Shift Lieutenant [facility] documented in this encounter[facility]05-30[facility] Instructions* Patient Instructions* Virgen Stroud RD - 08/28/2023 1:36 PM EDT Nutrition Intervention 08/28/2023: Modify type and amount of food consumed for meals and snacks: 1. Limit sodium to 2000 mg per day or less -avoid salting foods or using salt when cooking -try to use salt free blends, other herbs and spices for flavor -avoid restaurants and fast food -try to refer to food labels on packaged, processed foods for sodium content (aim for <300 mg per serving) 2. Aim for 60 g protein daily (0.8 g/kg ideal body weight) -refer to handout provided -consider limiting animal protein to 1 meal daily, no more than the size of a deck of cards -incorporate plant based protein, dairy, eggs for lower protein options at other meals 3. Continue/Increase activity level as tolerated 4. Try to follow Healthy plate method at meal times -1/4 plate lean protein, 1/4 plate complex carbohydrates, 1/2 plate non starchy vegetables 5. Continue to limit sources of potassium and phosphorous -potassium </= 2000 mg/day, refer to handout provided -limit phosphorous to </= 800-1000 mg daily documented in this encounterL[facility]05-[facility] History of Present illness Narrative* Virgen Stroud RD - 08/28/2023 12:49 PM EDT Nutrition Therapy Pre-Transplant Evaluation and Initial Assessment Nutrition Diagnosis: Overweight/obesity, related to, decreased energy needs, as evidenced by BMI above normative standard for age and gender. RECOMMENDED MALNUTRITION DIAGNOSIS: NO MALNUTRITION IDENTIFIED NUTRITION CARE PLAN Nutrition Intervention 08/28/2023: Modify type and amount of food consumed for meals and snacks: 1. Limit sodium to 2000 mg per day or less -avoid salting foods or using salt when cooking -try to use salt free blends, other herbs and spices for flavor -avoid restaurants and fast food -try to refer to food labels on packaged, processed foods for sodium content (aim for <300 mg per serving) 2. Aim for 60 g protein daily (0.8 g/kg ideal body weight) -refer to handout provided -consider limiting animal protein to 1 meal daily, no more than the size of a deck of cards -incorporate plant based protein, dairy, eggs for lower protein options at other meals 3. Continue/Increase activity level as tolerated 4. Try to follow Healthy plate method at meal times -1/4 plate lean protein, 1/4 plate complex carbohydrates, 1/2 plate non starchy vegetables 5. Continue to limit sources of potassium and phosphorous -potassium </= 2000 mg/day, refer to handout provided -limit phosphorous to </= 800-1000 mg daily Nutrition Pre-Transplant Assessment No contraindications Nutrition Monitoring & Evaluation: PO, weight status, activity, adherence to the above recommendations. Need for Follow up: prn Patient presents for an initial nutrition consult. Mr Gonzales is a very pleasant 43 yo male from [place]. We discussed his current diet, he is supposed to be following a low sodium dit but his lunch choices are all fast food. We went over the renal diet basics and a handout was provided. Mr Gonzales is not currently participating in any physical exercise. We talked about a healthier diet andhealthier food choices. PMH reveals PAST MEDICAL HISTORY Diagnosis Date Acute gastritis [...] diabetes mellitus with other specified manifestations, uncontrolled . Nutrition related lab values reveal:no labs available at appointment time Weight history reveals: Pt' weight is 211 lbs, BMI 29.43 ~ANL. Diet recall reveals: Excessive Intake:refined carbohydrates, saturated fats Inadequate Intake:Fruit, vegetables, whole grains/fiber, dairy/calcium, beans/legumes, nuts/seeds, omega 3s/fatty fish Restricting any foods none. Patient's symptoms are: None Diet History: Breakfast - toast with eggs OR cereal Snack - skips Lunch - cheeseburger OR pizza Snack - skips Dinner - fish/chicken with veg Snack - skips Beverages - sparkling water Alcohol- none Vitamins/Supplements - none Activity: Activities of Daily Living: Active 25% of the day. 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 RMR can't be calculated - Weight unrecorded in last 120 days. Malnutrition Screening Significant unintentional weight loss? No Eating less than 75% of usual intake for more than 2 weeks? No Potential Signs of Inflammation: no identifiable sources Education Materials Provided: Renal Diet Basics READINESS TO LEARN Cognitive ability: Alert and oriented Motivation to learn: Interested Family support: High - Very involved in pt care Instruction provided to: Patient and Family member Patient learns best by: Multiple Methods Factors affecting learning: None Physical limitations affecting learning: None Referred/Supervised by: Jazmyn/Dae GOODMAN Billing Type: Initial Assess/15 min 2 units SIGNATURE: Virgen Stroud RD PATIENT NAME: Laurie Gonzales DATE: August 28, 2023 TIME: 12:50 PM documented in this encounterL[facility]05-30-[facility] History of Present illness Narrative* Manju Edge RT(R) - 08/28/2023 12:30 PM EDT Radiology Service Progress Note PATIENT NAME: Laurie Gonzales DATE OF SERVICE: August 28, 2023 TIME: 11:35 AM PATIENT IDENTITY VERIFICATION COMPLETED USING TWO (2) IDENTIFIERS: Name and Date of confirmedby patient verbally and Name and Date of confirmed by identification band. FALL SCREENING: Has the patient had 2 falls in the last year or 1 fall with injury or currently using an Ambulatory Assistive Device (Walker, Cane, Wheelchair, Crutches, etc.)? No PATIENT GENDER DATA: Male PATIENT RELEVANT IMPLANT DATA REVIEWED: Yes PATIENT PRESENTS WITH AN IMPLANTABLE OR ATTACHED VISUAL C DEVELOPER: No RADIOLOGY DEPARTMENT: CT; Exam(s) Completed: Abdomen/Pelvis PERIPHERAL IV DATA: Not applicable SIGNED BY: RT Samanta(R) August 28, 2023 11:35 AM documented in this encounterL[facility]05-30-2024 History of Present illness Narrative* Dustin Beard MD - 08/28/2023 11:34 AM EDT [facility] [place] [facility] Transplant Evaluation CC: Consultation for Kidney/Pancreas transplant evaluation. Referred by: DR. Vivek Diaz- Kidney [id number] [facility] [id number] I will communicate with the referring provider by letter and/or shared electronic medical record. HPI: Mr Laurie Gonzales is a 43 y/o gentleman with CKD stage 5, GFR 13%. Recently had his fistulaplaced but has not initiated dialysis treatments to date. Cause of disease is diabetes type I sinceage 18, has an insulin pump and hx of poorly controlled hypertension. Patient also has Charcot footdue to his diabetes mellitus Renal biopsy: never had a bx performed Patient presents ambulatory without assistive devices. 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 BMI 29.43 No hypoglycemic unawareness DM I UTI: No Kidney stones: No Chronic anti-coagulation: No Midodrine: No If yes, frequency: What is your blood pressure in between dialysis sessions?: Abdominal surgeries: No Cardiovascular Disease?: No Peripheral Arterial Disease (TIA non-embolic, CVA non-embolic, amputation, abnormal PVRs, decreasedpulses, etc): No Stroke: No Claudication: No Carotid Artery Stenosis: No DM: Yes Diagnosed at age 18 and Type 1 Diabetic ulcers or chronic wounds: No Prior transplant: No CKD: Yes: Cause of CKD: DM Living Donors: No Residual UO: yes Hypercoagulable (hx of DVT/PE, miscarriages, prior use of anticoagulation, etc): No Malignancy (including skin cancer): No Last hospitalization: may for fluid overload, administtered Lasix and disharged home the next day PAST MEDICAL HISTORY Diagnosis Date Acute gastritis [...] Laterality Date EGD TRANSORAL BIOPSY SINGLE/MULTIPLE 10/09/11 Current Outpatient Medications Medication Sig Acetone, Urine, Test (KETONE URINE TEST) 1 Strip as directed. DX E10.65 E10.3599 blood sugar diagnostic (FREESTYLE LITE STRIPS) test [...] Take 4 tablets by mouth as needed. Ketone Blood Test ([employer] XTRA B-KETONE) strp Test KETONES as directed. [...] TO AFFECTED AREA FIVE TIMES DAILY Insulin Triangle, Disposable, (BD ULTRA-FINE CAROL PEN NEEDLE) 32 gauge x 5/32 ndle Use one needle for each dose. 7/day. Zn Vrknqlc-Vwlypldtuvc-Xae (AMERIGEL) gel Apply 1 application to affected area twice daily. (Patient not taking: No sig reported) lancets (FREESTYLE LANCETS) 28 gauge misc Test blood sugar four times daily 250.00 sildenafil (VIAGRA) 100 mg tablet Take 0.5 tablets by mouth as needed. Take 30 to 60min before sexual activity (Patient not taking: No sig reported) No current facility-administered medications for this visit. FAMILY HISTORY Problem Relation Age of Onset Diabetes Mother Hypertension Mother Heart Mother other (skin cancer) Father Diabetes Maternal Grandfather other (skin cancer) Paternal Grandfather Diabetes Paternal Grandmother Psychiatry Brother Family Status Relation Name Status Mo Alive Fa MGFa (Not Specified) PGFa (Not Specified) PGMo (Not Specified) Bro (Not Specified) Social History Tobacco Use Smoking status: Never Smokeless tobacco: Never Substance Use Topics Alcohol use: No Drug use: No Pre-transplant testing: Cardiac: STRESS TEST 05/2023 [facility] ECHOCARDIOGRAM 07/02/2023 Interpretation/Summary Normal LV size Left ventricular systolic function is normal The estimated ejection fraction is 55% Normal diastolic for age EKG 07/01/2023 Normal sinus rhythm ventricular rate of 88 bpm KIDNEY/BLADDER US 07/02/2023 (ce) FINDINGS: RIGHT KIDNEY: 10.9 cm in length with a cortical thickness of 1.9 cm. Contour and echogenicity unremarkable. No hydronephrosis. No gross renal mass demonstrated. LEFT KIDNEY: 11.3 cm in length with a cortical thickness of 1.4 cm. Contour and echogenicity unremarkable. No hydronephrosis. No gross renal mass demonstrated. URINARY BLADDER: Unremarkable at 318 cc with a 3 mm wall thickness. IMPRESSION: Unremarkable examination of the kidneys. CXR: 07/01/2023 (ce) FINDINGS: There is evidence of vascular congestion and mild degree of CHF with bibasilar atelectasis. Blunting of the costophrenic angles bilaterally. There is borderline cardiomegaly. Normal mediastinum and yamini. Normal visualized pulmonary arteries. Normal visualized aortic arch and descending thoracic aorta. Normal visualized thoracic spine. Normal visualized ribs, clavicles, and shoulders. There is no demonstrated abnormality of the visualized soft tissue structures of the upper abdomen. IMPRESSION: Findings suggestive of mild degree of CHF with bibasilar atelectasis. PAP Test: Not applicable Mammogram: Not applicable Colonoscopy: Not applicable Sensitizations: Prior transplant: No Blood transfusions: No Rabbit: No Immunizations: HBV series: Received, date never done Pneumovax: Received, date never done Influenza vaccine: Received, date 10/30/2023 Covid vaccine: Received, date 11/29/2022 Roro Pollard RN Exclusion criteria for HCV organs (IF POTENTIAL RECIPIENT MEETS ANY OF THESE CRITERIA, THEY ARE EITHER NOT ELIGIBLE, OR THEY MUST SEE HEPATOLOGY FOR INFORMED CONSENT) [] HCV-RNA positive (such individuals may receive HCV donor positive organs, but are not part of this D+/R- program) [] HIV Infection [] Evidence of cirrhosis by imaging or biopsy [] or lactating women [] Prior surgery with altered gastroduodenal anatomy (Gastric bypass, Gastric sleeve) [] Required continued use of certain medications that may interfere with DAA absorption including: [] Statins [] PPI if dose required is > 20mg per day [] Amiodarone [] Anticonvulsants/mood stabilizers (eg: carbamazepine, phenytoin, oxcarbazine) [] Digoxin [] Current severe systemic infection [] Current illicit drug use Informed Consent for the option of considering an HCV positive organ MUST CHOOSE ONE OF THE OPTIONS BELOW [x] Yes, the patient is interested. Laurie Gonzales wishes to pursue the option of obtaining a HCVpositive organ. Advantages and disadvantages of HCV viremic donor transplantation were reviewed. Patient received education on the risk of transmission of HCV following HCV viremic donor transplantation, the natural history of HCV, current therapies for HCV, side effects of therapy, and need for monitoring during and after therapy for HCV. Provided pt with educational slide packet and handout titled Transplantation of Hepatitis C Viremic Organs into Hepatitis C Negative Recipients. The risks of HCV transmission post-transplant, fibrosing cholestatic HCV, treatment failure, chronic HCV, cirrhosis and hepatic and non-hepatic manifestations of acute and chronic HCV were specifically discussed. Patient verbalized understanding of the risks and benefits of receiving a hepatitis C viremic organand provided verbal consent to be enrolled in the protocol. All their questions were answered. [] No, the patient is not interested in this option. [] The patient would like more time to consider this option. Patient has been educated and can callback regarding accepting or declining this option. Dr Beard REVIEW OF SYSTEMS GENERAL: No weight loss, malaise or fevers HEENT: Negative for frequent or significant headaches, NECK: Negative for lumps, RESPIRATORY: Negative for cough, hemoptysis, CARDIOVASCULAR: Negative for chest pain, leg swelling, hypertension, CHF or palpitations GI: No nausea, vomiting, or diarrhea : No history of dysuria, frequency or incontinence SKIN: Negative for lesions, rash, and itching HEMATOLOGY/LYMPHOLOGY: Negative for prolonged bleeding, NEURO: No history of headaches, PHYSICAL EXAMINATION: General appearance: Well appearing, alert, in no acute distress, well-hydrated, well nourished. Skin: Skin color, texture, turgor normal, no suspicious rashes or lesions Head: Normocephalic, no masses, lesions, tenderness or abnormalities Eyes: Anicteric sclera. Pupils are equally round Neck: Supple, no adenopathy; Lungs: Lungs clear to auscultation. No wheezing, rhonchi, rales. Heart: RRR without murmur, gallop, or rubs. No ectopy Abdomen: Abdomen soft, non-tender. Bowel sounds normal. No masses, organomegaly Extremities: No deformities, edema, Peripheral pulses: Normal Neuro: Gait normal. 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 Advantages and disadvantages of transplantation versus dialysis were reviewed. Discussed the operative procedure and potential complications. I addressed issues of post- operative recovery and follow up. Few things I have discussed with him a. the advantage and disadvantage of SPK vs KTA or MAXIMINO b. the average graft survival c. re-operation rate associated with SPK d. . We then discussed the process of being enlisted, including the average time from being on the list till getting the first offer. I described the UNOS point system and the principles of equity and utility that govern the organ allocation process e. We also discussed the transplant procedure and the need for urinary catheter and ureteric stent.I overviewed the issues of delayed graft function, the possible need for dialysis, and the possibleneed for re-operation during the early postoperative period. I also informed him of the occasional need for blood transfusion and he expressed his understanding and willingness to accept one if the need arises. I mentioned other complications including thromboembolic events, cardiac events, and infection.I also outlined the related surgical aspects of the pancreas transplant, bowel complications,acute thrombosis and need to remove a thrombosed graft. f. I stressed on the post-transplant commitment to follow-up and the need for immunosuppressive medications for the duration of the graft life and the need for compliance. He verbalized understandingand motivation to do so. 1. Stress echo 2. Abd/pelvic CT without contrast - both eia okay 3. serology 4. Routine labs and work up 5. C-peptide I spent a total of 60 minutes on the date of the service which included preparing to see the patient, [id number] patient care, completing clinical documentation, obtaining and/or reviewing separately obtained history, performing a medically appropriate examination, counseling and educating the pat ient/family/caregiver, ordering medications, tests, or procedures, communicating with other HCPs (not separately reported), independently interpreting results (not separately reported), communicatingresults to the patient/family/caregiver, and care coordination (not separately reported). Dustin Beard documented in [facility] History of Present illness Narrative* Ciarra Catalan, CALL PERSON - 08/28/2023 9:25 AM EDT PSYCHOSOCIAL EVALUATION FOR KIDNEY TRANSPLANT (Assessment Via Telephone Contact) Social Supports: Pt identified support and both of their commitment needs to be verified. Financial Concerns: [employer] Medicaid Compliance: Pt is not dialysis dependent at this time. -Pt's EMR does indicate past non-compliance with medication. Pt admitted to medication non-compliance for several years. Pt reports he has been compliant for 3yrs.. Pt needs to continue to ensure medication compliance. This will be monitored by SW reviewing pt's EMR. -Pt currently has a No Show rate of 34% (52 of 155.) Pt needs to ensure he attend all medical appointments at as scheduled. This will be monitored by SW reviewing pt's EMR. Mental Health: No mental health concerns at this time. Substance Use: No current concerns regarding ETOH abuse, street drug use or tobacco use. SIPAT: 17 At this time, pt is not yet a suitable psychosocial candidate. REFERRAL: Laurie Gonzales was referred to Social Work for a psychosocial evaluation to establish if he would be a suitable candidate to receive a kidney / pancreas transplant. Pt is not dialysis dependent at this time. DIALYSIS START DATE: N/A This social work psychosocial evaluation was completed with Laurie Gonzales via telephone on August 28, 2023. Pt's son Li was also on the call. Pt was at at the time of this assessment. Race/Gender: Male White [] Descent [][place] or []North (non-Black) []White: Other [x]White: Not Specified/Unknown [place] Citizen: Yes IDENTIFYING INFORMATION/LIVING SITUATION Laurie Gonzales resides at: [address] [place] [address]. This home is about 1[place] 23min (70 miles) away from [place]. Pt has lived in this bi- level home for the past 10yrs.. Pt denies any architectural barriers in the home. Pt reports he is independent withall ADL's, he has a drivers license and a vehicle. Pt denies receiving any home health care or homehealth aide services at this time. Others in household are: Pt's 3 children. Li - Age 18, is reported to be in good health and he is going into the 12th grade for the upcoming school year. Li is independent with all ADL's, he has a drivers license and a vehicle. Carlos - Age 16, is reported to be in good health and she is going into the 11th garde for the upcoming school year. Carlos is independent with all ADL's, she has drivers license and a vehicle. Shay - Age 15, is reported to be in good health and he is going into the 9th this upcoming school year. Shay is also independent with all ADL's. There are 3 licensed drivers in the home and 3 working vehicles. Caregiver responsibilities: Pt stated all of his children are independent with all ADL's. Pets in the home: 2 dogs - SW reviewed precautions to take post transplant regarding animal care. Pt verbalized understanding. TRANSPLANT LODGING PLANS FOR PATIENTS WHO LIVE 2.5 OR MORE HOURS AWAY FROM [facility]: Do you have the financial means to stay in the area for four weeks or more post- transplant? N/A COMPREHENSION OF MEDICAL SITUATION Laurie Gonzales reports that his kidney disease is due to type 1 diabetes. Pt stated he has been adiabetic since the age of 18. Laurie Gonzales was able to recall some information that was presented to him today during the kidney transplant educational class. Laurie Gonzales has basic knowledge of the transplant process, the risks of transplant, and transplant medications. Missed doctor appointments: Pt currently has a CC No Show rate of 34% (52 of 155.) Missed/shortened/rescheduled dialysis appointments: N/A Knowledge of medications: Pt was able to tell SW the name of one of his medication. Pt is familiar with the purpose of some of his medication. Medication Compliance: Pt stated he takes all medication as prescribed and he takes them straight from the bottles. Pt is insulin dependent and he has a continuous glucose monitor. Have you ever stopped taking any medication because you lost your insurance you could not afford it? Denies Have you stopped taking medication because you felt you didn't need it or because of side-effects? Pt's EMR does indicate some issues with past medication non-compliance. In pt's EMR (2018) it statespt wasn't compliant with diet, medication and he would guess how much insulin he would take. Pt stated for several years he wasn't compliant with taken medication, however he would always takehis insulin. Pt reports he never guessed when it came to taken his insulin. Pt stated I went through a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 process. [facility] Miscellaneous Notes* Telephone Encounter - Concha Araiza Tech - 07/29/2023 1:21 PM EDT Called patient without success for kidney transplant referral. Detailed voicemail message was left for patient to call our office back to get started with the intake process. [facility] Progress note Author Nelly Gross [facility] July 02, 2023 3:33pm Note Date/Time July 02, 2023 1:39 pm [facility] Medical Records Department [address] [place] [address] Progress Note 07/02/23 1338 MR#: [id number] Acct: [id number] Name: LAURIE GONZALES Rep #:[id number] : 1980 42 From: Nelly Gross MD PCP: Dr. Kristal Sullivan MD Status:ADM I N Location: ICU ICU06-1 Subjective Subjective Patient seen and examined. He was comfortably eating breakfast. He had no complaints. Review of systems otherwise negative. He is on room air. Objective Data Objective Data Vital Signs: Vital Signs Temp Pulse Resp BP Pulse Ox O2 Del Method 98.2 F 93 16 175/98 H 91 Room Air 07/02/23 10:00 07/02/23 10:00 07/02/23 10:00 07/02/23 10:00 07/02/23 10:00 07/02/23 10:00 Oxygen Delivery Method Room Air Weight: 227 lb 7.003 oz Body Mass Index (BMI) 31.7 Intake & Output: Intake and Output for Last 24 Hours 06/30/23 07/01/23 07/02/23 23:59 23:59 23:59 Intake Total 460 / 460 Output Total 950 / 950 1800 / 1800 Balance -950 / -950 -1340 / -1340 Lab / Micro Data 07/02/23 02:10 07/02/23 02:10 Labs: Laboratory Results - last 24 hr 07/01/23 13:14: WBC 10.9, RBC 3.64 L, Hgb 9.9 L, Hct 30.0 L, MCV 82.4, MCH 27.2,MCHC 33.0, RDW Std Deviation 40.4, RDW Coeff of Marcella 13.4, Plt Count 329, MPV 9.3, Immature Gran % (Auto) 0.300, Neut % (Auto) 77.8 H, Lymph % (Auto) 11.7 L, Bee % (Auto) 8.3, Eos % (Auto) 1.3, Baso % (Auto) 0.6, Absolute Neuts (auto) 8.5 H, Absolute Lymphs (auto) 1.27, Nucleated RBC % 0, Sodium 135 L, Potassium 4.8, Chloride 108 H, Carbon Dioxide 20.0 L, Anion Gap 7, BUN 53 H, Creatinine 4.68 H, Estim Creat Clear Calc 25.85, Est GFR (MDRD) Af Amer 18 L, Est GFR (MDRD) Non-Af 15 L, BUN/Creatinine Ratio 11.3, Glucose 285 H, Calcium 9.2, Phosphorus 4.2, Magnesium 2.1, Troponin I High Sens 44 07/01/23 20:00: Troponin I High Sens 47 07/01/23 21:00: Urine Color Straw, Urine Clarity Clear, Urine pH 6.0, Ur Specific Widener 1.010, Urine Protein 100 H, Urine Glucose (UA) Normal, Urine Ketones Negative, Urine Occult Blood 25 H, Urine Nitrite Negative, Urine Bilirubin Negative, Urine Urobilinogen Normal, Ur Leukocyte Esterase Negative, Urine RBC 0-5 SEEN, Urine WBC 0 SEEN, Ur Squamous Epith Cells 0 SEEN, Urine Bacteria 0 SEEN, Urine Mucus 0 SEEN 07/01/23 22:00: Troponin I High Sens 48 07/02/23 02:10: WBC 9.6, RBC 3.37 L, Hgb 9.0 L, Hct 27.2 L, MCV 80.7, MCH 26.7 L, MCHC 33.1, RDW Std Deviation 39.6, RDW Coeff of Marcella 13.5, Plt Count 293, MPV 9.0, Immature Gran % (Auto) 0.400, Neut % (Auto) 72.9 H, Lymph % (Auto) 14.4 L, Bee % (Auto) 8.6, Eos % (Auto) 2.9, Baso % (Auto) 0.8, Absolute Neuts (auto) 7.0, Absolute Lymphs (auto) 1.38, Nucleated RBC % 0, Sodium 141, Potassium 4.1, Chloride 112 H, Carbon Dioxide 22.0, Anion Gap 7, BUN 50 H, Creatinine 4.50 H, Estim Creat Clear Calc 26.68, Est GFR (MDRD) Af Amer 19 L, Est GFR (MDRD) Non-Af15 L, BUN/Creatinine Ratio 11.1, Glucose 151 H, Calcium 9.1, Troponin I High Sens 49, Triglycerides 171, Cholesterol 170, LDL Cholesterol 78, VLDL Cholesterol 34, HDL Cholesterol 58, TSH 3.33 Radiography Diagnostic Testing: Radiology Impression Chest X-Ray 07/01/23 13:30 IMPRESSION: Findings suggestive of mild degree of CHF with bibasilar atelectasis. Electronically Signed: Neeraj Brown MD at 13:41 EDT , Echocardiogram 07/02/23 05:55 Interpretation Summary Normal LV size. Left ventricular systolic function is normal. The estimated ejection fraction is 55 %. Normal diastology for age. Ordering Physician: Louis Koehler Referring Physician: Kristal Sullivan Performed By: Anupama Morin, UNRULYCS, RVT Physical Exam Const alert, oriented x3, no apparent distress and well nourished General Appearance: cooperative and well developed HEENT normocephalic, head/scalp atraumatic and moist oral mucous membranes Eyes PERRL and EOMs intact bilaterally Neck supple and no JVD Lymph Lymphatic: no lymphadenopathy noted and no lymphedema noted Resp normal respiratory effort, normal air movement and clear to auscultation bilaterally Cardio regular rate, regular rhythm, S1 normal heart sound, S2 normal heart sound and no murmurs GI normal to inspection, nondistended, normoactive bowel sounds, soft to palpation and non-tender Extremity no clubbing, cyanosis or edema and no calf tenderness General Extremity: no tenderness to palpation of joints or extremities Skin General Skin Exam: no breakdown Neuro CN's II-XII intact bilaterally, no focal motor deficits and no sensory deficits noted Motor Exam: strength 5/5 throughout and general weakness Psych thought process normal and cooperative Appearance: appropriate Assessment & Plan Assessment/Plan (1) Dyspnea on exertion: (2) Volume overload: PLAN: Plan #Exertional dyspnea * shortness of breath has improved, and is now on room air. * being diuresed with IV lasix * Chest x-ray on admission showed increased interstitial edema and vascular congestion as well as bibasilar atelectasis. * 2D echo showed: EF of 55% with normal LV function and normal diastology for age. * #Ann on CKD IV * Cr was up to 4.68, and now down to 4.5. * nephrology consulted. * #Type 1 diabetes mellitus * Has history of diabetic retinopathy as well. * on insulin pump. * ISS. Accuchecks ACHS. * * #Hypertension: on metoprolol. DVT prophylaxis: on heparin Charges/Coding Visit Charges Inpatient E&M: 60509 Subs Hosp L2 07/02/23 1533 <Electronically signed by Nelly Gross MD> Nelly Gross MD Cosigner Signature (if applicable): CC: ~ Signed [facility] Work Phone: 1(109) 460-869604-03-2024 Consult note Author Roberta Kapadia [facility] July 02, 2023 2:26pm Note Date/Time July 02, 2023 2:26 pm [facility] Medical Records Department [address] [place] [address] Consultation - Nephrology 07/02/23 1420 MR#: [id number] Acct: [id number] Name: LAURIE GONZALES Rep #:[id number] : 1980 42 From: Roberta riley MD PCP: Dr. Kristal Sullivan MD Status:ADM I N Location: ICU ICU06-1 Assessment & Plan Assessment/Plan (1) Stage 4 chronic kidney disease: PLAN: Progressive renal insufficiency, consistent with diabetic nephropathy, compounded by proteinuria. He has normal potassium, no uremia, relatively stable creatinine, no acidosis, but has significant fluid overload. I do not think he needs dialysis today, but he needs his diuresis, as well as blood pressure control Plan Continue with IV diuretics Titrate blood pressure medications, I suggest beta-zain considering his pulserate is quite high HPI Consult Data Date of Consult: 07/02/23 HPI Narrative Reason for Consultation: Advanced kidney failure, fluid overload HPI Narrative: LAURIE GONZALES, is a 42 M who presents with PND and orthopnea to emergency room. Laurie has been suffering from diabetes mellitus since he was 18, 24 years of diabetes. His creatinine started to go off as long ago as 2016, at that time itwas fluctuating between 1.0 and 1.4. It slowly crept up and at the end of 2022 was as high as 2.93, and that the beginning of this year it started to go up to 4. Unfortunately first time he has been seen by house designer was last month, there was Dr. Diaz. And at that time there was no conversation about dialysisas of yet. He has not been taking diuretics and over the last week or so he noticed some increase in lower extremity edema, some dyspnea on exertion and PND. He came over to the emergency room and was found to be hypoxic, and congestive heart failure. He received diuretics, he diuresed 2.2 L of urine andfeels much better today. He is on room air right now, he noticed improvement inlower extremity edema. He is hypertensive. He does have protein in the urine, his creatinine on admission was 4.6, it is 4.5 today. Electrolytes are fine, hehas no significant acidosis. [facility] Medical History Abscess Charcot foot due to diabetes mellitus Diabetes mellitus type 1 Insulin pump titration Obesity Presence of insulin pump Type 1 diabetes mellitus Home Medications blood sugar diagnostic (FreeStyle Lite Strips) #100 ea 10/08/21 [Rx Last Taken Unknown] blood-glucose meter,continuous (Dexcom G6 Paper Coating Machine Operator) #1 ea 10/08/21 [Rx Last Taken Unknown] lancing device with lancets kit ([employer] Delica Plus Lancing Device kit) #100 ea 11/26/21 [Rx Last Taken Unknown] pen needle, diabetic 32 gauge x 5/32 (BD Ultra-Fine Carol Pen Needle) #150 ea 02/26/22 [Rx Last Taken Unknown] alcohol swabs (BD Alcohol Swabs) 1 pad topical .4 times daily #200 ea 05/20/22 [Rx Last Taken Unknown] insulin aspart U-100 100 unit/mL subcutaneous solution (Novolog U-100 Insulin aspart) 80 unit (0.8 mL) continuous subcutaneous infusion .continuous #72 mL 12/19/22 [Rx Last Taken Unknown] insulin pump cart,automated,BT (Omnipod 5 G6 Pods (Gen 5) subcutaneous cartridge) #30 ea 01/07/23 [Rx Last Taken Unknown] amlodipine 10 mg tablet 10 mg PO DAILY #90 tabs 05/14/23 [Rx Last Taken Unknown] blood-glucose sensor (Dexcom G6 Sensor device) #9 ea 05/14/23 [Rx Last Taken Unknown] blood-glucose transmitter (Dexcom G6 Transmitter device) #1 ea 05/14/23 [Rx Last Taken Unknown] rosuvastatin 10 mg tablet 10 mg PO DAILY #90 tabs 05/14/23 [Rx Last Taken Unknown] metoprolol succinate 25 mg tablet,extended release 24 hr 25 mg PO DAILY #30 tabs05/29/23 [Rx Last Taken Unknown] Allergy/AdvReac Type Severity Reaction Status Date / Time No Known Allergies Allergy Verified 07/01/23 12:53 Family History Other Diabetes Social History Smoking Status: Never smoker alcohol intake: never substance use type: does not use ROS ROS Narrative 14 point comprehensive system review, all positives as well as pertinent negatives are reflected in current H&P Physical Exam Const alert, oriented x3, no apparent distress and average body habitus General Appearance: well developed Orientation / Consciousness: oriented to person, oriented to place and oriented to time HEENT normocephalic Head and Scalp: atraumatic External Ear: external ears normal Neck no lymphadenopathy Resp no use of accessory muscles and clear to auscultation bilaterally Cardio regular rate and no rub GI non-tender Auscultation: normoactive bowel sounds Palpation: soft Skin no rashes or lesions noted Neuro Sensorium / Orientation: awake and alert Motor Exam: muscle tone normal throughout Psych cooperative Lab / Micro Data Attestation: I reviewed the patient's lab results. 07/02/23 02:10 07/02/23 02:10 Labs: Laboratory Results - last 24 hr 07/01/23 13:14: Phosphorus 4.2, Magnesium 2.1 04/02/24 20:00: Troponin I High Sens 47 07/01/23 21:00: Urine Color Straw, Urine Clarity Clear, Urine pH 6.0, Ur Specific Widener 1.010, Urine Protein 100 H, Urine Glucose (UA) Normal, Urine Ketones Negative, Urine Occult Blood 25 H, Urine Nitrite Negative, Urine Bilirubin Negative, Urine Urobilinogen Normal, Ur Leukocyte Esterase Negative, Urine RBC 0-5 SEEN, Urine WBC 0 SEEN, Ur Squamous Epith Cells 0 SEEN, Urine Bacteria 0 SEEN, Urine Mucus 0 SEEN 07/01/23 22:00: Troponin I High Sens 48 07/02/23 02:10: WBC 9.6, RBC 3.37 L, Hgb 9.0 L, Hct 27.2 L, MCV 80.7, MCH 26.7 L, MCHC 33.1, RDW Std Deviation 39.6, RDW Coeff of Marcella 13.5, Plt Count 293, MPV 9.0, Immature Gran % (Auto) 0.400, Neut % (Auto) 72.9 H, Lymph % (Auto) 14.4 L, Bee % (Auto) 8.6, Eos % (Auto) 2.9, Baso % (Auto) 0.8, Absolute Neuts (auto) 7.0, Absolute Lymphs (auto) 1.38, Nucleated RBC % 0, Sodium 141, Potassium 4.1, Chloride 112 H, Carbon Dioxide 22.0, Anion Gap 7, BUN 50 H, Creatinine 4.50 H, Estim Creat Clear Calc 26.68, Est GFR (MDRD) Af Amer 19 L, Est GFR (MDRD) Non-Af 15 L, BUN/Creatinine Ratio 11.1, Glucose 151 H, Calcium 9.1, Troponin I High Sens 49, Triglycerides 171, Cholesterol 170, LDL Cholesterol 78, VLDL Cholesterol 34, HDL Cholesterol 58, TSH 3.33 Imaging Radiology Impression Echocardiogram 07/02/23 05:55 Interpretation Summary Normal LV size. Left ventricular systolic function is normal. The estimated ejection fraction is 55 %. Normal diastology for age. Ordering Physician: Louis Koehler Referring Physician: Kristal Sullivan Performed By: Anupama Morin, HUNTER, RVT 07/02/23 1426 <Electronically signed by Roberta Kapadia MD> Cosigner Signature (if applicable): CC: Dr. Kristal Sullivan MD; Dr. Daisy Diaz MD; Dr. Louis Koehler MD~ Signed [facility] Work Phone: 1(755) 977-185104-02-2024 History and physical note Author Louis Koehler [facility] July 01, 2023 6:30pm Note Date/Time July 01, 2023 6:28 pm [facility] Medical Records Department [address] [place] [address] H&P Exam - Hospitalist 07/01/23 1803 MR#: [id number] Acct: [id number] Name: LAURIE GONZALES Rep #:[id number] : 1980 42 From: Louis Ricketts PCP: Dr. Kristal Sullivan MD Status:REG E R Location: ED HPI - General General Date of Admission: 07/01/23 Date of Service: 07/01/23 Chief Complaint: Shortness of breath, exertional dyspnea and generalized swelling for about 3 days HPI Narrative LAURIE GONZALES, is a 42 M with history of hypertension type 1 diabetes mellitus and CKD who follows Dr. Diaz came to ED for shortness of breath on exertion, orthopnea, generalized swelling of feet and hand and facial swelling gradually worsening for 3 days. Patient is states he gets short of breath on laying flat but feels better in semierect position. He was diagnosed CKD about 3 to 4 months ago but was doing well until 3 days ago. Denies chest pain pressure or tightness. No fever or chills. In ED his creatinine was found to be high 4.68 with BUN 53 which was significantly higher than his baseline and admitted. Patient pulse ox also drops to 80% on laying down and in the 80s on walking. Vitals labs and imaging reviewed and discussed in detail in assessment plan PFSH Medical History Abscess Charcot foot due to diabetes mellitus Diabetes mellitus type 1 Insulin pump titration Obesity Presence of insulin pump Type 1 diabetes mellitus Home Medications blood sugar diagnostic (FreeStyle Lite Strips) #100 ea 10/08/21 [Rx Last Taken Unknown] blood-glucose meter,continuous (Dexcom G6 Paper Coating Machine Operator) #1 ea 10/08/21 [Rx Last Taken Unknown] lancing device with lancets kit ([employer] Plus Lancing Device kit) #100 ea 11/26/21 [Rx Last Taken Unknown] pen needle, diabetic 32 gauge x 5/32 (BD Ultra-Fine Carol Pen Needle) #150 ea 02/26/22 [Rx Last Taken Unknown] alcohol swabs (BD Alcohol Swabs) 1 pad topical .4 times daily #200 ea 05/20/22 [Rx Last Taken Unknown] insulin aspart U-100 100 unit/mL subcutaneous solution (Novolog U-100 Insulin aspart) 80 unit (0.8 mL) continuous subcutaneous infusion .continuous #72 mL 12/19/22 [Rx Last Taken Unknown] insulin pump cart,automated,BT (Omnipod 5 G6 Pods (Gen 5) subcutaneous cartridge) #30 ea 01/07/23 [Rx Last Taken Unknown] amlodipine 10 mg tablet 10 mg PO DAILY #90 tabs 05/14/23 [Rx Last Taken Unknown] blood-glucose sensor (Dexcom G6 Sensor device) #9 ea 05/14/23 [Rx Last Taken Unknown] blood-glucose transmitter (Dexcom G6 Transmitter device) #1 ea 05/14/23 [Rx Last Taken Unknown] rosuvastatin 10 mg tablet 10 mg PO DAILY #90 tabs 05/14/23 [Rx Last Taken Unknown] metoprolol succinate 25 mg tablet,extended release 24 hr 25 mg PO DAILY #30 tabs05/29/23 [Rx Last Taken Unknown] Allergy/AdvReac Type Severity Reaction Status Date / Time No Known Allergies Allergy Verified 07/01/23 12:53 Family History Other Diabetes Social History Smoking Status: Never smoker alcohol intake: never substance use type: does not use ROS ROS Narrative Constitutional: Reports fatigue and weakness. No fever. HEENT: Reports systems reviewed and no addt'l complaints, except as documented Respiratory/Chest: As described in HPI CVS: No chest pressure or tightness Gastrointestinal: Loss of appetite. Denies coffee ground emesis, hematemesis orvomiting Genitourinary: Denies burning urination or new urinary tract symptoms. Denies oliguria or decrease in frequency of urination Musculoskeletal: Denies acute joint pain or limited range of motion. No acute injury Neurologic: Denies seizure-like symptoms. skin: No ulcer. No rash Endocrinology: Reports systems reviewed and no addt'l complaints, except as documented Hematologic/Lymphatic: Reports systems reviewed and no addt'l complaints, exceptas documented Rest 14 ROS are negative except as mentioned in HPI Vital Signs Vital Signs Vital Signs: 07/01/23 12:53 07/01/23 12:52 07/01/23 13:21 Temperature 97.2 F L Temperature Source Temporal Pulse Rate 98 96 Respiratory Rate 16 16 Respiratory Effort Normal Blood Pressure 178/91 H 174/93 H Blood Pressure Mean 120 120 Pulse Ox 98 99 Oxygen Delivery Method Room Air Room Air Room Air 07/01/23 14:52 07/01/23 16:00 Temperature Temperature Source Pulse Rate 72 94 Respiratory Rate 18 18 Respiratory Effort Blood Pressure 114/63 166/92 H Blood Pressure Mean 80 116 Pulse Ox 92 93 Oxygen Delivery Method Room Air Room Air Weight Weight: 231 lb 0.711 oz Body Mass Index (BMI) 32.2 Physical Exam Narrative General: Alert, Oriented x3, Cooperative HEENT: Atraumatic, PERRLA, EOMI, Normocephalic Oral: No Gingival or Mucosal Lesions/ Ulcerations Neck: Supple, No JVD, Negative Carotid Bruits Chest wall/Lungs: Air entry diminished in bilateral lung bases. No crepitation/rhonchi/wheezing Cardiovascular: Regular rate, Regular Rhythm, Normal S1, Normal S2, No M/G/R Abdomen: Bowel Sounds Present, Soft, Non Tender, Non-Distended : No dysuria. No renal angle tenderness. No suprapubic tenderness. No oliguria/anuria. Extremities: Pitting edema over lower legs, hands and facial puffiness. Capillary Refill Less than 3 Seconds Skin: No rashes, No breakdown Musculoskeletal: No Tenderness to Palpation of Joints or Extremities. ROM intact. Neurological: Cranial nerves II-XII grossly intact, DTR 2+/4. No acute focal neurological deficit. Psych/Mental Status: Normal Affect, Appropriate. Results Lab / Micro Data 07/01/23 13:14 07/01/23 13:14 Labs: Laboratory Results - last 24 hr 07/01/23 13:14: WBC 10.9, RBC 3.64 L, Hgb 9.9 L, Hct 30.0 L, MCV 82.4, MCH 27.2,MCHC 33.0, RDW Std Deviation 40.4, RDW Coeff of Marcella 13.4, Plt Count 329, MPV 9.3, Immature Gran % (Auto) 0.300, Neut % (Auto) 77.8 H, Lymph % (Auto) 11.7 L, Bee % (Auto) 8.3, Eos % (Auto) 1.3, Baso % (Auto) 0.6, Absolute Neuts (auto) 8.5 H, Absolute Lymphs (auto) 1.27, Nucleated RBC % 0, Sodium 135 L, Potassium 4.8, Chloride 108 H, Carbon Dioxide 20.0 L, Anion Gap 7, BUN 53 H, Creatinine 4.68 H, Estim Creat Clear Calc 25.85, Est GFR (MDRD) Af Amer 18 L, Est GFR (MDRD) Non-Af 15 L, BUN/Creatinine Ratio 11.3, Glucose 285 H, Calcium 9.2, Phosphorus 4.2, Magnesium 2.1, Troponin I High Sens 44 Imaging Radiology Impression Chest X-Ray 07/01/23 13:30 IMPRESSION: Findings suggestive of mild degree of CHF with bibasilar atelectasis. Electronically Signed: Neeraj Brown MD at 13:41 EDT , Assessment & Plan Assessment/Plan (1) Dyspnea on exertion: (2) CKD (chronic kidney disease): QUALIFIERS: Chronic kidney disease stage: stage 3 (moderate) Chronic kidney disease stage 3 subtype: stage 3a (GFR 45-59) Qualified Code(s):N18.31 - Chronic kidney disease, stage 3a (3) Acute kidney injury: PLAN: Plan This is a 42-year-old gentleman being admitted to for evaluation of dyspnea on exertion/orthopnea and ANN on CKD 1. 1. Exertional dyspnea/orthopnea, clinical diagnosis of CHF exacerbation: Patient is being admitted in PCU. Chest x-ray portable individually reviewed and shows increased interstitial edema/vascular congestion and bibasilar atelectasis. Blunting of bilateral CP angles. No prior echo in our system. Patient is started on diuretic furosemide 40 mg twice daily and titrate accordingly. 2D echo ordered. Heart failure core measures including intake andoutput, fluid restriction less than 1500 mL, daily weight monitoring, kidney andelectrolytes monitoring. 2. ANN on CKD stage 4: Patient creatinine has been elevated in the past intermittently going back in 2015 consistent with ANN. Recently last normal wasin March?August 2018, 0.99?1.3 but since November 2021 it is elevated 1.35 and progressively getting worse to current 4.68. BUN 53 with BUN/creatinine ratio 11.3 suggestive it is not prerenal/fluid deficient. Started on diuretic. Patient denies history of urine retention or obstruction. Last CT abdomen in November 2019 which shows normal retroperitoneum and kidneys. Normal urinary bladder. Kidneys and bladder ultrasound ordered. Missile Facilities Repairer consulted 3. 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 On insulin pump. If insulin pump functional use patient's insulin pump otherwise intermittent subcutaneous insulin injection with Accu-Cheks before meals and at bedtime and cover with milk sliding scale. 4. Hypertension: Blood pressure is uncontrolled in ED. Monitor BP and adjust antihypertensive medications. 5. Chronic anemia: Hemoglobin 9.9/30%. Platelet count normal DVT prophylaxis moderate risk: Heparin 5000 units subcutaneous every 12 hourly. Living will/advanced directive/end of life care: Patient does not have living will or advanced directive. Patient does not have dilated power of auto collision repair instructor [facility] after discussion of benefits/risks procedures involved with full code, DNR CC arrest and DNR CC, the patient opted for full code. Patient does want artificial life support including intubation, tube feed, ventilator and/chest compression, central venous catheter, vasopressor and DC shock if needed Total time spent in [id number] encounter in discussion of advanced directive 17 minutes. Laboratory Results 07/01/23 13:14: WBC 10.9, RBC 3.64 L, Hgb 9.9 L, Hct 30.0 L, MCV 82.4, MCH 27.2,MCHC 33.0, RDW Std Deviation 40.4, RDW Coeff of Marcella 13.4, Plt Count 329, MPV 9.3, Immature Gran % (Auto) 0.300, Neut % (Auto) 77.8 H, Lymph % (Auto) 11.7 L, Bee % (Auto) 8.3, Eos % (Auto) 1.3, Baso % (Auto) 0.6, Absolute Neuts (auto) 8.5 H, Absolute Lymphs (auto) 1.27, Nucleated RBC % 0, Sodium 135 L, Potassium 4.8, Chloride 108 H, Carbon Dioxide 20.0 L, Anion Gap 7,BUN 53 H, Creatinine 4.68 H, Estim Creat Clear Calc 25.85, Est GFR (MDRD) Af Amer 18 L, Est GFR (MDRD) Non-Af 15 L, BUN/Creatinine Ratio 11.3, Glucose 285 H,Calcium 9.2, Phosphorus 4.2, Magnesium 2.1, Troponin I High Sens 44 Clinical Impression(s) from Imaging Studies Chest X-Ray 07/01/23 13:30 IMPRESSION: Findings suggestive of mild degree of CHF with bibasilar atelectasis. Electronically Signed: Neeraj Brown MD at 13:41 EDT Reading Location ID and State: [address] [place] [address] , Service support , Charges/Coding Visit Charges Inpatient E&M: 35330 Init Hosp L3 Procedures Hospitalists Procedures: 92456 Advncd Care Plan 30 Min 07/01/23 1830 <Electronically signed by Louis Koehler MD> Cosigner Signature (if applicable): CC: Dr. Kristal Sullivan MD; Dr. Louis Koehler MD~ Signed [facility] Work Phone: 1(716) 700-697604-02-2024 Discharge summary Author Laurie Elizalde [facility] July 01, 2023 4:50pm Note Date/Time July 01, 2023 1:31 pm [facility] Medical Records Department [address] [place] [address] Emergency Department Summary 07/01/23 MR#: [id number] Acct: [id number] Name: LAURIE GONZALES Rep #:[id number] : 1980 42 From: Laurie Thrasher PCP: Dr. Kristal Sullivan MD Status:REG E R Location: ED HPI History of Present Illness Chief Complaint: Shortness of Breath Informant: patient Narrative Narrative: 42-year-old male with a history of hypertension diabetes chronic kidney disease presenting to the emergency room with dyspnea. Patient states for about 4 days he feels short of breath when he lays down flat. He has been sleeping with his head of his bed elevated. States he feels swollen in his hands face and feet. States they are not as bad now as they were last night. He sees Dr. Diaz for chronic kidney disease. He had blood work done about 4 days ago and is in the evening of that day that he started noticing his symptoms. Patient states that he has no history of heart disease or CHF. [facility] Medical History Abscess Charcot foot due to diabetes mellitus Diabetes mellitus type 1 Insulin pump titration Obesity Presence of insulin pump Type 1 diabetes mellitus Home Medications blood sugar diagnostic (FreeStyle Lite Strips) #100 ea 10/08/21 [Rx Last Taken Unknown] blood-glucose meter,continuous (Dexcom G6 Paper Coating Machine Operator) #1 ea 10/08/21 [Rx Last Taken Unknown] lancing device with lancets kit (INCIDE Delica Plus Lancing Device kit) #100 ea 11/26/21 [Rx Last Taken Unknown] pen needle, diabetic 32 gauge x 5/32 (BD Ultra-Fine Carol Pen Needle) #150 ea 02/26/22 [Rx Last Taken Unknown] alcohol swabs (BD Alcohol Swabs) 1 pad topical .4 times daily #200 ea 05/20/22 [Rx Last Taken Unknown] insulin aspart U-100 100 unit/mL subcutaneous solution (Novolog U-100 Insulin aspart) 80 unit (0.8 mL) continuous subcutaneous infusion .continuous #72 mL 12/19/22 [Rx Last Taken Unknown] insulin pump cart,automated,BT (Omnipod 5 G6 Pods (Gen 5) subcutaneous cartridge) #30 ea 01/07/23 [Rx Last Taken Unknown] amlodipine 10 mg tablet 10 mg PO DAILY #90 tabs 05/14/23 [Rx Last Taken Unknown] blood-glucose sensor (Dexcom G6 Sensor device) #9 ea 05/14/23 [Rx Last Taken Unknown] blood-glucose transmitter (Dexcom G6 Transmitter device) #1 ea 05/14/23 [Rx Last Taken Unknown] rosuvastatin 10 mg tablet 10 mg PO DAILY #90 tabs 05/14/23 [Rx Last Taken Unknown] metoprolol succinate 25 mg tablet,extended release 24 hr 25 mg PO DAILY #30 tabs05/29/23 [Rx Last Taken Unknown] Allergy/AdvReac Type Severity Reaction Status Date / Time No Known Allergies Allergy Verified 07/01/23 12:53 Family History Other Diabetes Social History Smoking Status: Never smoker alcohol intake: never substance use type: does not use ROS ROS ED Constitutional Constitutional ED: Denies chills, fever(s) or weight loss Eyes Eyes: Denies change in vision or diplopia ENT ENT ED: Denies ear pain, rhinorrhea or sore throat Cardiovascular Cardiovascular: Denies chest pain, orthopnea, palpitations or racing heartbeat Respiratory/Chest Respiratory/Chest: Reports dyspnea; Denies cough or orthopnea Gastrointestinal Gastrointestinal: Denies abdominal pain, diarrhea, nausea or vomiting Genitourinary Genitourinary ED: Denies dysuria, hematuria or urinary frequency Musculoskeletal Musculoskeletal: Denies arthralgias or myalgias Integumentary Denies abscess or rash Neurologic Neurologic: Denies headache(s) or weakness Psychiatric Psychiatric: Denies anxiety, depression, suicidal ideation or suicidal thoughts Endocrine Endocrinology: Denies polydipsia, polyphagia or polyuria Allergic/Immunologic Allergic/Immunologic ED: Denies mouth swelling, tongue swelling or urticaria EXAM Physical Exam Const Vital Signs: 07/01/23 12:53 07/01/23 12:52 07/01/23 13:21 Temperature 97.2 F L Temperature Source Temporal Pulse Rate 98 96 Respiratory Rate 16 16 Respiratory Effort Normal Blood Pressure 178/91 H 174/93 H Blood Pressure Mean 120 120 Pulse Ox 98 99 Oxygen Delivery Method Room Air Room Air Room Air 07/01/23 14:52 07/01/23 16:00 Temperature Temperature Source Pulse Rate 72 94 Respiratory Rate 18 18 Respiratory Effort Blood Pressure 114/63 166/92 H Blood Pressure Mean 80 116 Pulse Ox 92 93 Oxygen Delivery Method Room Air Room Air Positive well nourished, well developed and obese General Appearance ED: well developed Nutritional Appearance: obese HEENT Reports normocephalic, head/scalp atraumatic and moist mucous membranes Eyes PERRL and EOMs intact bilaterally Neck no lymphadenopathy, supple and no JVD Resp normal respiratory effort and clear to auscultation bilaterally Cardio regular rate, regular rhythm and no murmurs GI normal to inspection, nondistended, normoactive bowel sounds and non-tender Palpation: soft Back/Spine no CVA tenderness and normal ROM Extremity normal to inspection General Extremety ED: Negative for edema General Extremity: Negative for edema Neuro oriented x3 and CN's II-XII intact bilaterally Sensorium / Orientation: alert Motor Exam: strength 5/5 throughout Psych mental status grossly normal Mood & Affect: Negative for depressed or tearful Skin no rashes or lesions noted and no wounds MDM MDM MDM Narrative Medical decision making narrative: Laying down flat the patient's oxygen level is about 81% and he is dyspneic. Ambulation he also becomes hypoxic and dyspneic. Chest x-ray shows some mild vascular congestion. White count 10.9 with a hemoglobin of 9.9. Platelet countof 329. Creatinine 4.68 troponin is 44 glucose 285 CO2 of 20 anion gap is 7 potassium 4.8.. EKG is a normal sinus rhythm. I spoke with the patient's house designer. History & Record Review Discussion w/independent historian: Patient Additional record(s) reviewed:: Prior labs Lab Data Attestation: I reviewed the patient's lab results. Labs: Laboratory Results - last 24 hr 07/01/23 13:14 WBC 10.9 RBC 3.64 L Hgb 9.9 L Hct 30.0 L MCV 82.4 MCH 27.2 MCHC 33.0 RDW Std Deviation 40.4 RDW Coeff of Marcella 13.4 Plt Count 329 MPV 9.3 Immature Gran % (Auto) 0.300 Neut % (Auto) 77.8 H Lymph % (Auto) 11.7 L Bee % (Auto) 8.3 Eos % (Auto) 1.3 Baso % (Auto) 0.6 Absolute Neuts (auto) 8.5 H Absolute Lymphs (auto) 1.27 Nucleated RBC % 0 Sodium 135 L Potassium 4.8 Chloride 108 H Carbon Dioxide 20.0 L Anion Gap 7 BUN 53 H Creatinine 4.68 H Estim Creat Clear Calc 25.85 Est GFR (MDRD) Af Amer 18 L Est GFR (MDRD) Non-Af 15 L BUN/Creatinine Ratio 11.3 Glucose 285 H Calcium 9.2 Phosphorus 4.2 Magnesium 2.1 Troponin I High Sens 44 Radiography Diagnostic Testing: Clinical Impression(s) from Imaging Studies Chest X-Ray 07/01/23 13:30 IMPRESSION: Findings suggestive of mild degree of CHF with bibasilar atelectasis. Electronically Signed: Neeraj Brown MD at 13:41 EDT Reading Location ID and State: [facility] / [place] , Service support , EKG Initial EKG: Attestation: I personally reviewed and interpreted this EKG as follows: Comments: Normal sinus rhythm ventricular rate of 88 bpm Management Discussion w/another healthcare provider: Hospitalist (Dr. Koehler) and Packaging Coordinator(Nephrology production floater) Discharge Plan Dx/Rx/DC Orders Clinical Impression: DM type 1 (diabetes mellitus, type 1), Obesity, Hypertension, CKD (chronic kidney disease), Volume overload Disposition Disposition: Acute Care Hospital [facility] What to do if you have Problems For any increased pain, shortness of breath, bleeding, nausea or vomiting, chestpain, or any unexpected problems, contact your Primary Care Provider. Call [facility] ([phone]) or report to the closest Emergency Room. Call 911 if necessary. 07/01/23 1650 <Electronically signed by Laurie Elizalde DO> Cosigner Signature (if applicable): CC: Dr. Kristal Sullivan MD ~ Signed [facility] Work Phone: 1(353) 741-361304-02-2024 Discharge summary Author Laurie Elizalde [facility] July 01, 2023 4:50pm Note Date/Time July 01, 2023 1:31 pm [facility] Medical Records Department [address] [place] [address] Emergency Department Summary 07/01/23 MR#: [id number] Acct: [id number] Name: LAURIE GONZALES Rep #:[id number] : 1980 42 From: Laurie Thrasher PCP: Dr. Kristal Sullivan MD Status:REG E R Location: ED HPI History of Present Illness Chief Complaint: Shortness of Breath Informant: patient Narrative Narrative: 42-year-old male with a history of hypertension diabetes chronic kidney disease presenting to the emergency room with dyspnea. Patient states for about 4 days he feels short of breath when he lays down flat. He has been sleeping with his head of his bed elevated. States he feels swollen in his hands face and feet. States they are not as bad now as they were last night. He sees Dr. Diaz for chronic kidney disease. He had blood work done about 4 days ago and is in the evening of that day that he started noticing his symptoms. Patient states that he has no history of heart disease or CHF. [facility] Medical History Abscess Charcot foot due to diabetes mellitus Diabetes mellitus type 1 Insulin pump titration Obesity Presence of insulin pump Type 1 diabetes mellitus Home Medications blood sugar diagnostic (FreeStyle Lite Strips) #100 ea 10/08/21 [Rx Last Taken Unknown] blood-glucose meter,continuous (Dexcom G6 Paper Coating Machine Operator) #1 ea 10/08/21 [Rx Last Taken Unknown] lancing device with lancets kit (Docphinuch Delica Plus Lancing Device kit) #100 ea 11/26/21 [Rx Last Taken Unknown] pen needle, diabetic 32 gauge x 5/32 (BD Ultra-Fine Carol Pen Needle) #150 ea 02/26/22 [Rx Last Taken Unknown] alcohol swabs (BD Alcohol Swabs) 1 pad topical .4 times daily #200 ea 05/20/22 [Rx Last Taken Unknown] insulin aspart U-100 100 unit/mL subcutaneous solution (Novolog U-100 Insulin aspart) 80 unit (0.8 mL) continuous subcutaneous infusion .continuous #72 mL 12/19/22 [Rx Last Taken Unknown] insulin pump cart,automated,BT (Omnipod 5 G6 Pods (Gen 5) subcutaneous cartridge) #30 ea 01/07/23 [Rx Last Taken Unknown] amlodipine 10 mg tablet 10 mg PO DAILY #90 tabs 05/14/23 [Rx Last Taken Unknown] blood-glucose sensor (Dexcom G6 Sensor device) #9 ea 05/14/23 [Rx Last Taken Unknown] blood-glucose transmitter (Dexcom G6 Transmitter device) #1 ea 05/14/23 [Rx Last Taken Unknown] rosuvastatin 10 mg tablet 10 mg PO DAILY #90 tabs 05/14/23 [Rx Last Taken Unknown] metoprolol succinate 25 mg tablet,extended release 24 hr 25 mg PO DAILY #30 tabs05/29/23 [Rx Last Taken Unknown] Allergy/AdvReac Type Severity Reaction Status Date / Time No Known Allergies Allergy Verified 07/01/23 12:53 Family History Other Diabetes Social History Smoking Status: Never smoker alcohol intake: never substance use type: does not use ROS ROS ED Constitutional Constitutional ED: Denies chills, fever(s) or weight loss Eyes Eyes: Denies change in vision or diplopia ENT ENT ED: Denies ear pain, rhinorrhea or sore throat Cardiovascular Cardiovascular: Denies chest pain, orthopnea, palpitations or racing heartbeat Respiratory/Chest Respiratory/Chest: Reports dyspnea; Denies cough or orthopnea Gastrointestinal Gastrointestinal: Denies abdominal pain, diarrhea, nausea or vomiting Genitourinary Genitourinary ED: Denies dysuria, hematuria or urinary frequency Musculoskeletal Musculoskeletal: Denies arthralgias or myalgias Integumentary Denies abscess or rash Neurologic Neurologic: Denies headache(s) or weakness Psychiatric Psychiatric: Denies anxiety, depression, suicidal ideation or suicidal thoughts Endocrine Endocrinology: Denies polydipsia, polyphagia or polyuria Allergic/Immunologic Allergic/Immunologic ED: Denies mouth swelling, tongue swelling or urticaria EXAM Physical Exam Const Vital Signs: 07/01/23 12:53 07/01/23 12:52 07/01/23 13:21 Temperature 97.2 F L Temperature Source Temporal Pulse Rate 98 96 Respiratory Rate 16 16 Respiratory Effort Normal Blood Pressure 178/91 H 174/93 H Blood Pressure Mean 120 120 Pulse Ox 98 99 Oxygen Delivery Method Room Air Room Air Room Air 07/01/23 14:52 07/01/23 16:00 Temperature Temperature Source Pulse Rate 72 94 Respiratory Rate 18 18 Respiratory Effort Blood Pressure 114/63 166/92 H Blood Pressure Mean 80 116 Pulse Ox 92 93 Oxygen Delivery Method Room Air Room Air Positive well nourished, well developed and obese General Appearance ED: well developed Nutritional Appearance: obese HEENT Reports normocephalic, head/scalp atraumatic and moist mucous membranes Eyes PERRL and EOMs intact bilaterally Neck no lymphadenopathy, supple and no JVD Resp normal respiratory effort and clear to auscultation bilaterally Cardio regular rate, regular rhythm and no murmurs GI normal to inspection, nondistended, normoactive bowel sounds and non-tender Palpation: soft Back/Spine no CVA tenderness and normal ROM Extremity normal to inspection General Extremety ED: Negative for edema General Extremity: Negative for edema Neuro oriented x3 and CN's II-XII intact bilaterally Sensorium / Orientation: alert Motor Exam: strength 5/5 throughout Psych mental status grossly normal Mood & Affect: Negative for depressed or tearful Skin no rashes or lesions noted and no wounds MDM MDM MDM Narrative Medical decision making narrative: Laying down flat the patient's oxygen level is about 81% and he is dyspneic. Ambulation he also becomes hypoxic and dyspneic. Chest x-ray shows some mild vascular congestion. White count 10.9 with a hemoglobin of 9.9. Platelet countof 329. Creatinine 4.68 troponin is 44 glucose 285 CO2 of 20 anion gap is 7 potassium 4.8.. EKG is a normal sinus rhythm. I spoke with the patient's house designer. History & Record Review Discussion w/independent historian: Patient Additional record(s) reviewed:: Prior labs Lab Data Attestation: I reviewed the patient's lab results. Labs: Laboratory Results - last 24 hr 07/01/23 13:14 WBC 10.9 RBC 3.64 L Hgb 9.9 L Hct 30.0 L MCV 82.4 MCH 27.2 MCHC 33.0 RDW Std Deviation 40.4 RDW Coeff of Marcella 13.4 Plt Count 329 MPV 9.3 Immature Gran % (Auto) 0.300 Neut % (Auto) 77.8 H Lymph % (Auto) 11.7 L Bee % (Auto) 8.3 Eos % (Auto) 1.3 Baso % (Auto) 0.6 Absolute Neuts (auto) 8.5 H Absolute Lymphs (auto) 1.27 Nucleated RBC % 0 Sodium 135 L Potassium 4.8 Chloride 108 H Carbon Dioxide 20.0 L Anion Gap 7 BUN 53 H Creatinine 4.68 H Estim Creat Clear Calc 25.85 Est GFR (MDRD) Af Amer 18 L Est GFR (MDRD) Non-Af 15 L BUN/Creatinine Ratio 11.3 Glucose 285 H Calcium 9.2 Phosphorus 4.2 Magnesium 2.1 Troponin I High Sens 44 Radiography Diagnostic Testing: Clinical Impression(s) from Imaging Studies Chest X-Ray 07/01/23 13:30 IMPRESSION: Findings suggestive of mild degree of CHF with bibasilar atelectasis. Electronically Signed: Neeraj Brown MD at 13:41 EDT , EKG Initial EKG: Attestation: I personally reviewed and interpreted this EKG as follows: Comments: Normal sinus rhythm ventricular rate of 88 bpm Management Discussion w/another healthcare provider: Hospitalist (Dr. Koehler) and Packaging Coordinator(Nephrology production floater) Discharge Plan Dx/Rx/DC Orders Clinical Impression: DM type 1 (diabetes mellitus, type 1), Obesity, Hypertension, CKD (chronic kidney disease), Volume overload Disposition Disposition: Acute Care Hospital [facility] What to do if you have Problems For any increased pain, shortness of breath, bleeding, nausea or vomiting, chestpain, or any unexpected problems, contact your Primary Care Provider. Call Doctors [facility] ([phone]) or report to the closest Emergency Room. Call 911 if necessary. 07/01/23 1650 <Electronically signed by Laurie Elizalde DO> Cosigner Signature (if applicable): CC: Dr. Kristal Sullivan MD ~ Signed [facility] Work Phone: 1(415) 238-215204-04-2023 Instructions* Patient Instructions* Yas Murray APRN.ELECTROMECHANIC - 07/02/2022 12:34 PM EDT Take lisinopril every day. Take it today as soon as you can, your blood pressure is running high Stick with your diabetic diet and remain active, aim for 10,000 steps per day. Avoid fast foods [facility] History of Present illness Narrative* Yas Murray APRN.CNS - 07/02/2022 12:00 PM EDT SUBJECTIVE: HEPATITIS B(1 of 3 - 3-dose series) Never done COVID-19 VACCINE(1) Never done HEPATITIS C SCREENING Never done HIV SCREENING Never done BP CONTROLLED (<130/80) Never done PNEUMOCOCCAL(2 - PCV) due on 07/30/2011 DTAP,TDAP,TD(1 - Tdap) due on 01/02/2019 DILATED RETINAL EXAM due on 09/16/2020 DIABETIC FOOT EXAM due on 02/03/2021 DEPRESSION ASSESSMENT Never done HPI Laurie Gonzales is a 41 year old male. [...] States has visit with Dr Ko this Aba. Taking BP medication: Missed lisinopril dose today [...] TO AFFECTED AREA FIVE TIMES DAILY Insulin Triangle, Disposable, (BD ULTRA-FINE CAROL PEN NEEDLE) 32 gauge x 32 ndle Use one needle for each dose. 7/day. lancets (FREESTYLE LANCETS) 28 gauge misc Test blood sugar four times daily 250.00 Zn Zquizcx-Yzmmmsuvpsl-Sxb (AMERIGEL) gel Apply 1 application to affected [...] loss at last visit but none today. Reportsdietary indiscretions, going for fast food with his [...] was 42. Reports decreased food intake and increasedactivity this date as well. 3. Low blood sugar - ICD9: 251.2, ICD10: E16.2 Recommend he resume lisinopril daily. Adhere to diabetic diet. Remain active with increased walkingdaily. Report low blood sugar to bushing press operator when he sees her on Friday. Will fax note to Dr Ko. 1 month recheck BP and weight loss. Yas Murray APRN.BELLO Medical Decision Making: Problems: Low: Stable chronic illness Moderate: 1+ chronic illnesses with change Risk: Moderate: Drug management Medical Decision Making Level: 4 - Moderate documented [facility]03[facility] History of Present illness Narrative* Kristal Sullivan MD - 05/31/2022 11:55 AM EST Reason for Visit Patient presents with: Follow Up: 1 month follow up-stewart Laurie Gonzales is a 41 year old male [...] hypofunction Pain in joint, lower leg 03/13/2006 [place] Schlatter Palpitations Proteinuria Type I (juvenile type) [...] 2 % ointment alcohol swabs padm Insulin Triangle, Disposable, (BD ULTRA-FINE CAROL PEN NEEDLE) 32 gauge x 5/32 ndle Zn [place]-Dgfmbdduwou-Uxi (AMERIGEL) gel lancets (FREESTYLE LANCETS) 28 gauge [...] F) Resp 12 Ht 180.3 cm (5' 11) Wt 94.8 kg (209 lb) SpO2 100% [...] <130/80 Kristal Sullivan MD documented [facility]01-31-[facility]23 Miscellaneous Notes* Telephone Encounter - Minnie Zuñiga LPN - 04/30/2022 10:44 AM EST Patient notified of below results/recommendation, verbalized understanding. Minnie Zuñiga LPN * Telephone Encounter - Minnie Zuñiga LPN - 04/30/2022 10:43 AM EST ----- Message from Kristal Sullivan MD sent at 04/29/2022 8:49 PM EST ----- Your hemoglobin is improved and almost normal thyroid is normal, kidney numbers are elevated, this could be from the halfway effects of diabetes. We have to keep monitoring them. Regards, Kristal Sullivan MD documented in [facility] encounterL[facility]01-31-2023 Miscellaneous Notes* Telephone Encounter - Minnie Zuñiga LPN - 04/30/2022 10:26 AM EST Patient notified of below results, verbalized understanding. Minnie Zuñiga LPN * Telephone Encounter - Minnie Zuñiga LPN - 04/30/2022 10:25 AM EST ----- Message from Kristal Sullivan MD sent at 04/29/2022 8:46 PM EST ----- Laurie, Your hemoglobin is improved and almost normal thyroid is normal, kidney numbers are elevated, Regards, Kristal Sullivan MD documented in [facility] encounterL[facility]01-27-2023 Miscellaneous Notes* Telephone Encounter - Tayla Yuan LPN - 04/26/2022 5:02 PM EST noted. Tayla Yuan LPN * Telephone Encounter - Kristal Sullivan MD - 04/26/2022 4:56 PM EST I have sent it. I had told him in the office I would have time only in the evening to send it. Thank him for his patience Regards, Kristal Sullivan MD * Telephone Encounter - Kitty Fang RN - 04/26/2022 1:04 PM EST Patient calling and asking about the Adipex order. Patient is currently at [facility] [facility]. Please review and advise, Kitty Fang RN documented in [facility] encounter[facility] History of Present illness Narrative* Kristal Sullivan MD - 04/26/2022 11:22 AM EST Reason for Visit Patient presents with: Follow Up: diabetes and refills Laurie Gonzales is a 41 year old male [...] 04/18/22. Has onmipod 5 - tolerating well. Monitorssugar intermittently via device and especially if alarms [...] to find his blood sugar was 60. Treatedwith an orange juice - blood sugar increased [...] sob, and or edema. Exercise: Recently started [employer] program. Planning on doing it 3 times [...] 2 % ointment alcohol swabs padm Insulin Triangle, Disposable, (BD ULTRA-FINE CAROL PEN NEEDLE) 32 gauge x 5/32 ndle Zn Prjzcul-Vaatmralraz-Onl (AMERIGEL) gel lancets (FREESTYLE LANCETS) 28 gauge [...] F) Resp 12 Ht 180.3 cm (5' 11) Wt 100.2 kg (221 lb) SpO2 99% [...] request of records from Dr. Camilo his bushing press operator - HEMOGLOBIN A1C (POC) - COMP METABOLIC [...] TABLET Kristal Sullivan MD documented in this encounterL[facility]11-06-2020 History of Present illness Narrative* Mirella Martinez (Rt), Tech - 02/04/2020 3:10 PM EST Radiology Service Progress Note PATIENT NAME: Laurie Gonzales DATE OF SERVICE: February 04, 2020 TIME: 3:24 PM PATIENT IDENTITY VERIFICATION COMPLETED USING TWO (2) IDENTIFIERS: Name and Date of confirmedby patient verbally. FALL SCREENING: Has the patient had 2 falls in the last year or 1 fall with injury or currently using an Ambulatory Assistive Device (Walker, Cane, Wheelchair, Crutches, etc.)? No PATIENT GENDER DATA: Male PATIENT RELEVANT IMPLANT DATA REVIEWED: Yes Pt has a Freestyle Cielo device and was notified of tooling manager recommendations to remove device during x-ray. Due to cost pt declined and device was shielded during exam with a lead shield. RADIOLOGY DEPARTMENT: General X-ray: Exam(s) Completed: Lower Extremity X- Ray(s): Foot, Right and Wt. Bearing: PERIPHERAL IV DATA: Not applicable SIGNED BY: RT Sana February 04, 2020 3:24 PM documented in this encounterL[facility] note Author Siva Drew [facility] Note Date/Time July 20, 2024 4:5 5pm [facility] Medical Records Department [address] [place] [address] Anesthesia Postop Eval I 07/20/241653 MR#: [id number] Acct: [id number] Name: LAURIE GONZALES Dominick Rep #:[id number] : 1980 43 From: Siva Drew CRNA PCP: Dr. Kristal Sullivan MD Status:REG S DC Y Race: C Location: [place] [address] Anesthesia: Postop Eval I Current Vital Signs Temperature: 97.3 F Pulse Rate: 73 Blood Pressure: 137/85 Respiratory Rate: 20 Pulse Ox: 95 Oxygen Delivery Method: Room Air Assessment Airway patent: Yes Spontaneous unlabored respirations: Yes Mental status: Awake and Calm nausea: No Vomiting: No Anesthesia Complication: No Fluid Hydration Crystalloid volume administer (ml): 250 Total IV fluid infused: 250 Progress Note Anesthesia document: Postop Eval 1 completed: Yes 07/20/241654 <Electronically signed by Siva bustillos CRNA> Date _ Siva Drew CRNA Cosigner Signature: Date CC: ~ Signed [facility] Work Phone: Consult note Author Ira Singh [facility] Note Date/Time August 11, 2024 3:16p m [facility] Medical Records Department [address] [place] [address] Counseling Note - Pharmacy 08/11/24 1516 MR#: [id number] Acct: [id number] Name: LAURIE GONZALES Rep #:[id number] : 1980 44 From: Ira Singh PCP: Dr. Kristal Sullivan MD Status:ADM I NO Y Location: [place] [address] Pharmacy [place] Med Reconciliation Pharmacy Service has performed discharge medication reconciliation for this patient. The patient's discharge medication list was reviewed for discrepancies and discrepancies were resolved. Medications at Discharge Home Medications blood sugar diagnostic (FreeStyle Lite Strips) #100 ea 10/08/21 lancing device with lancets kit ([employer] Plus Lancing Device kit) #100 ea 11/26/21 pen needle, diabetic 32 gauge x 5/32 (BD Ultra-Fine Carol Pen Needle) #150 ea 02/26/22 aspirin 81 mg tablet,delayed release 81 mg PO BREAKFAST #90 tabs 02/25/24 clopidogrel 75 mg tablet 75 mg PO DAILY #90 tabs 02/25/24 insulin aspart U-100 100 unit/mL subcutaneous solution (Novolog U-100 Insulin aspart) 80 unit (0.8 mL) continuous subcutaneous infusion .continuous #72 mL 02/25/24 metoprolol succinate 25 mg tablet,extended release 24 hr 25 mg PO DAILY #90 tabs104/26/23 rosuvastatin 10 mg tablet 10 mg PO DAILY #90 tabs 02/25/24 insulin syringe-needle U-100 0.3 mL 31 gauge x 5/16 (BD Insulin Syringe Ultra- Fine) #100 ea 03/30/24 pen needle, diabetic 32 gauge x 5/32 (BD Ultra-Fine Carol Pen Needle) #50 ea 03/30/24 blood-glucose meter,continuous (Dexcom G6 Paper Coating Machine Operator) #1 ea 04/01/24 insulin pump cart,auto,BT,G6/7 (Omnipod 5 G6-G7 Pods (Gen 5) subcutaneous cartridge) #30 ea 04/01/24 sevelamer carbonate 800 mg tablet 800 mg PO DAILY 06/18/24 blood-glucose sensor (Dexcom G6 Sensor device) #9 ea 07/23/24 blood-glucose transmitter (Dexcom G6 Transmitter device) #1 ea 07/23/24 cholecalciferol (vitamin D3) 50 mcg (2,000 unit) capsule 150 mcg PO MOWEFR 07/28/24 loratadine 5 mg-pseudoephedrine ER 120 mg tablet,extended release,12hr (Claritin-D 12 Hour) 1 tab PO Q12H 08/05/24 amlodipine 5 mg tablet 10 mg (2 x 5 mg) PO DAILY #90 tabs 08/11/24 08/11/24 1516 <Electronically signed by Ira Singh> Date _ Ira Singh Cosigner Signature (if applicable): Date CC: ~ Signed [facility] Work Phone: Consult note Author Jakob Patricia [facility] Note Date/Time August 31, 2024 11:04 am [facility] Medical Records Department [address] [place] [address] Pre-Anesthesia Evaluation 08/31/24 1056 MR#: [id number] Acct: [id number] Name: LAURIE GONZALES Rep #:[id number] : 1980 44 From: Jakob Patricia PCP: Dr. Kristal Sullivan MD Status:REG S DC Y Race: C Location: [place] [address] ASA Classification* ASA Classification ASA Classification: 3 Assessment & Plan Anesthesia* Anesthesia Assessment Anesthesia Assessment: Discussed sedation and/or anesthesia options, risks, benefits, and alternatives with patient/parents/legal guardian/POA. Questions invited. The patient/parents/legal guardian/POA seems to understand and agrees to proceedwith anesthesia plan. Reviewed the physical assessment, medical history, allergy history and patient home medications list prior to surgery/procedure/anesthetic and documented any changes. Performed airway and anesthesia risk assessments. Anesthesia Type Anesthesia Type: MAC History Source History Obtained from:: Patient and Chart Anesthesia Focused Assessment* Temperature: 97.9 F Pulse Rate: 85 Blood Pressure: 156/92 Respiratory Rate: 16 Pulse Ox: 100 Oxygen Delivery Method: Room Air Airway Assessment Mouth opens: >3 cm Mallampati Score: II Teeth Condition: Chipped/Broken (right lower molar) Neck Range of motion (ROM): Full ROM Focused Labs Anesthesia Preop lab: CBC WBC 26.1 K/mm3 (4.4-11.0) H 08/23/24 00:57 5 RBC 3.83 M/mm3 (4.6-6.2) L 08/23/24 00:57 08/23/24 Hgb 11.9 g/dL (13.0-16.5) L 08/23/24 00:57 5 Hct 33.5 % (40-54) L 08/23/24 00:57 08/23/24 Plt Count 250 K/mm3 (150-450) 08/23/24 00:57 08/23/24 CHEMISTRY Potassium 3.6 mmol/L (3.3-5.1) 08/23/24 00:57 08/23/24 Sodium 135 mmol/L (133-145) 08/23/24 00:57 08/23/24 Magnesium 1.7 mg/dL (1.5-2.2) 08/23/24 00:57 08/23/24 Phosphorus 1.2 mg/dL (2.7-4.5) L* 08/23/24 00:57 08/23/24 BUN 54 mg/dL (4-19) H 08/23/24 00:57 08/23/24 Creatinine 8.87 mg/dL (0.70-1.20) H* 08/23/24 00:57 08/23 Glucose 220 mg/dL (70-99) H 08/23/24 00:57 08/23/24 POC Glucose 188 mg/dL (74-106) H 04/20/24 11:00 04/20/24 TSH 1.100 uIU/mL (0.358-3.740) 01/23/24 01:40 12/30 08/21 COAG PT 14.7 SECONDS (11.7-14.9) 08/23/24 02:09 Pre-Assessment Diagnosis/Proposed Procedure Planned Operative Procedure(s): EGD Anesthesia History Anesthesia History - production estimator: Anesthesia History - production estimator Hx Hospitalization Yes: 07/2024 BLOOD INFECTION/ 08/30/24 10:31 WENT FROM [facility] TO [facility] Any Problems With Anesthesia No 08/30/24 10:31 Cholinesterase deficiency No 08/30/24 10:31 You/Your Family Experience No 08/30/24 10:31 fever (hyperthermia) with Relationship Recent Exposure to Contagious No 08/31/24 10:38 Disease Does patient have nerve No 08/30/24 10:31 stimulator Patient instructed to have device shut off --Does patient have Pacemaker No 08/31/24 10:38 or ICD? When Was Last Pacemaker Check QUESTION #4 FULL TEXT: You/Your Family Experience fever (hyperthermia) with Anesthesia Last Oral Intake Last Oral intake: Last Oral Intake NPO since 23:00 08/31/24 10:38 Meds taken in AM with sips of No 08/31/24 10:38 water? 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 - production estimator: PONV - production estimator Female No 08/30/24 10:31 HX of Motion Sickness No 08/30/24 10:31 HX of N/V After Surgery No 08/30/24 10:31 Non-Smoker Yes 08/30/24 10:31 Duration of Surgery greater No 08/30/24 10:31 than 60 minutes Number of Risk Factors 1 08/30/24 10:31 PONV Score Low Risk 08/30/24 10:31 Height & Weight Height & Weight: Anesthesia: Height & Weight Height 5 ft 11 in 08/31/24 10:38 Weight: 88 kg 08/31/24 10:38 Body Mass Index (BMI) 27.0 08/31/24 10:38 Respiratory Assessment Respiratory Assessment - production estimator: Respiratory Tract Infection Hx - production estimator Hx Respiratory Tract Infection No 08/30/24 10:31 STOP Sleep Apnea STOP Sleep Apnea - production estimator: STOP Sleep Apnea - production estimator Hx Hypertension Yes: CONTROLLED WITH MED 08/30/24 10:31 Hx Sleep Apnea No 08/30/24 10:31 CPAP No 08/30/24 10:31 BIPAP No 08/30/24 10:31 Do you snore loudly (louder Yes 08/30/24 10:31 than talking or can be heard Do you often feel tired/ No 08/30/24 10:31 fatigued/ sleepy during daytime? Has anyone observed you stop No 08/30/24 10:31 breathing during sleep? STOP Results Positive 08/30/24 10:31 QUESTION #5 FULL TEXT : Do you snore loudly (louder than talking or can be heard through closed doors)? Tobacco Use History Tobacco Use History - production estimator: Tobacco Use History - production estimator Tobacco Use Non-smoker 06/30/24 15:56 Smoking Status Never smoker 08/30/24 10:31 Hx Tobacco Use No 08/30/24 10:31 Years Smoking Packs Smoked per Day Smoking Cessation Date was within the last 15 years Hx Smoking Cessation Date Hx Smoking Cessation Counseling Hematologic Medial History Hematologic Hx - production estimator: Hematologic Medical Hx - hand striper Hx of Blood Transfusion No 08/30/24 10:31 Hx of Transfusion in last 3 No 08/30/24 10:31 Months Date of Last Transfusion (if within last 3 months) Ever experience any problems No 08/30/24 10:31 with transfusion(s)? Specify any problems Hx of Preganancy in last 3 N/A 08/30/24 10:31 Months Nurse Filling Out Transfusion DSCHRIBER 08/30/24 10:31 & Questions: Date: 08/30/24 08/30/24 10:31 Time: 10:34 08/30/24 10:31 Patient unable to answer at this time (ie. confused, unrespo /Reproduction History /Reproductive History - production estimator: /Reproductive Hx- production estimator Hx Now No 08/30/24 10:31 Gestational Age (in weeks): EDC: Hx Hx Para Hx Section SAB No 08/30/24 10:31 Active Medications Active Medications: Current Medications Generic Name Dose Route Start Last Admin Trade Name Freq PRN Reason Stop Dose Admin Sodium Chloride 500 mls @ 0 mls/hr 08/31/24 10:30 08/31/24 10:43 IV 15 mls/hr .Q0M CHILO Administration KVO PFSH Medical History Bloodstream infection Hypertension High cholesterol Restless legs Difficulty swallowing History of stress test Elevated troponin Insulin dependent diabetes mellitus History of renal dialysis History of renal disease Back pain Injury of back Dietary restriction Gastric reflux Non-smoker Leg cramps Cardiology follow-up encounter History of echocardiogram History of heart attack Acute non-ST elevation myocardial infarction (NSTEMI) CKD (chronic kidney disease), stage V Congestive heart failure of unknown etiology Overweight (BMI 25.0-29.9) NSTEMI, initial episode of care Acute kidney injury superimposed on chronic kidney disease Elevated troponin Pre-op testing ESRF (end stage renal failure) Stage 4 chronic kidney disease Diabetes mellitus type 1 Insulin pump titration Presence of insulin pump CKD (chronic kidney disease) Hypertension Charcot foot due to diabetes mellitus Home Medications ?Medication ?Instructions ?Recorded ?Last Taken ?Type blood sugar diagnostic (FreeStyle #100 ea 10/08/21 Unk nown Rx Lite Strips) lancing device with lancets kit #100 ea 11/26/21 Unkno wn Rx (OneTouch Delica Plus Lancing Device kit) pen needle, diabetic 32 gauge x #150 ea 02/26/22 Unkno wn Rx 32 (BD Ultra-Fine Carol Pen Needle) aspirin 81 mg tablet,delayed 81 mg PO BREAKFAST #90 ta bs 02/25/24 08/30/24 Rx release clopidogrel 75 mg tablet 75 mg PO DAILY #90 tabs 01/3008/30/24 Rx metoprolol succinate 25 mg 25 mg PO DAILY #90 tabs 08/10/24 Rx tablet,extended release 24 hr rosuvastatin 10 mg tablet 10 mg PO DAILY #90 tabs 01/3008/10/24 Rx insulin syringe-needle U-100 0.3 #100 ea 03/30/24 Unkn own Rx mL 31 gauge x 5/16 (BD Insulin Syringe Ultra-Fine) pen needle, diabetic 32 gauge x #50 ea 03/30/24 Unknow n Rx 5/32 (BD Ultra-Fine Carol Pen Needle) blood-glucose,grain merchandising manager,cont #1 ea 04/01/24 Unknown Rx (Dexcom G6 Paper Coating Machine Operator) insulin pump cart,auto,BT,G6/7 #30 ea 04/01/24 Unknown Rx (Omnipod 5 G6-G7 Pods (Gen 5) subcutaneous cartridge) sevelamer carbonate 800 mg tablet 800 mg PO DAILY 05/3008/10/24 History blood-glucose sensor (Dexcom G6 #9 ea 07/23/24 Unknown Rx Sensor device) blood-glucose transmitter (Dexcom #1 ea 07/23/24 Unkno wn Rx G6 Transmitter device) cholecalciferol (vitamin D3) 50 150 mcg PO MOWEFR 07/0108/09/24 History mcg (2,000 unit) capsule loratadine 5 mg-pseudoephedrine ER 1 tab PO Q12H PRN s inus symptoms 08/05/24 Unknown History 120 mg tablet,extended release,12hr (Claritin-D 12 Hour) amlodipine 5 mg tablet 10 mg (2 x 5 mg) PO DAILY #9 0 tabs 08/11/24 08/10/24 Rx pantoprazole 40 mg tablet,delayed 40 mg PO QDAY #90 ta bs 08/17/24 Unknown Rx release sucralfate 100 mg/mL oral 10 ml PO QACHS #1,200 mL Unknown Rx suspension (Carafate) insulin aspart U-100 100 unit/mL 80 unit (0.8 mL) cont inuous 08/20/24 Unknown Rx subcutaneous solution (Novolog subcutaneous infusion . continuous U-100 Insulin aspart) #72 mL Allergy/AdvReac Type Severity Reaction Status Date / Time No Known Allergies Allergy Verified 08/31/24 10:36 Family History Mother Diabetes Thyroid disorder Grandmother Diabetes Grandfather Diabetes Surgical History Hx of surgical procedure History of cardiac catheterization Hx of surgical procedure History of coronary artery stent placement History of surgery on lower extremity Social History Smoking Status: Never smoker alcohol intake: never substance use type: does not use Review of Systems (Anesthesia) ROS Narrative System reviewed and no additional complaints, except as documented. 08/31/24 1101 <Electronically signed by Jakob Patricia > Date _ Jakob Patricia 08/31/24 1104<Electronically signed by Shaun Thompson MD> Jennifer Signature: Date Shaun Thompson MD CC: ~ Signed [facility] Work Phone: Consult note Author Jakob Patricia [facility] Note Date/Time August 31, 2024 11:32 am [facility] Medical Records Department [address] [place] [address] Anesthesia Postop Eval I 08/31/24 1131 MR#: [id number] Acct: [id number] Name: LAURIE GONZALES Rep #:[id number] : 1980 44 From: Jakob Patricia PCP: Dr. Kristal Sullivan MD Status:REG S DC Y Race: C Location: [place] [address] Anesthesia: Postop Eval I Current Vital Signs Temperature: 97 F Pulse Rate: 72 Blood Pressure: 109/53 Respiratory Rate: 16 Pulse Ox: 99 Oxygen Delivery Method: Room Air Assessment Airway patent: Yes Spontaneous unlabored respirations: Yes Mental status: Awake and Calm nausea: No Vomiting: No Anesthesia Complication: No Fluid Hydration Crystalloid volume administer (ml): 100 Total IV fluid infused: 100 Progress Note Anesthesia document: Postop Eval 1 completed: Yes 08/31/24 1132 <Electronically signed by Jakob Patricia > Date _ Jakob Rodriguez Signature: Date CC: ~ Signed [facility] Work Phone: Discharge summary [facility] July 03, 2023 12:52pm Note Date/Time July 03, 2023 12:5 2pm [facility] Medical Records Department [address] [place] [address] Instructions for Home/Discharge Instructions 07/03/23 1251 MR#: [id number] Acct: [id number] Name: LAURIE GONZALES Rep #:[id number] : 1980 42 From: Nelly Gross MD PCP: Dr. Kristal Sullivan MD Status:ADM I N Discharge Instructions Diet Discharge Diet: Low fat / Low cholesterol Activity Discharge Activity: Return to Normal Activity Weight Bearing Status: Weight bearing as tolerated Dressing / Incision Call your doctor if you observe: Fever of 101 or Higher, Shortness of breath, Dizziness, Swelling in the ankles and Chest pain Follow Up Care Test Results: Test results from this visit will be discussed in further detail at your follow- up appointment, if applicable. Discharge Plan Admission Admit Date/Time: 07/01/23 17:44 Primary Reason for Your Visit: fluid overload Attending Provider: Nelly Gross Primary Care Provider: Kristal Sullivan Consulting Providers: Daisy Diaz; Louis Koehler Instructions Patient Instructions: Heart Failure: Know Your Baselines, ED Dyspnea Discharge Orders/Prescriptions Prescriptions: New furosemide 40 mg tablet 40 mg PO DAILY Qty: 30 2RF Continued (DME) FreeStyle Lite Strips Strip See Rx Instructions .Route Qty: 100 6RF Rx Instructions: 3x/day (DME) Dexcom G6 Paper Coating Machine Operator Misc See Rx Instructions .Route Qty: 1 0RF Rx Instructions: As directed insulin aspart U-100 [Novolog U-100 Insulin aspart] 100 unit/mL solution 80 unit continuous subcutaneous infusion .continuous Qty: 72 1RF amlodipine 10 mg tablet 10 mg PO DAILY Qty: 90 1RF rosuvastatin 10 mg tablet 10 mg PO DAILY Qty: 90 1RF (DME) Dexcom G6 Transmitter Device See Rx Instructions .Route Qty: 1 1RF Rx Instructions: 1 q 90 days (DME) Dexcom G6 Sensor Device See Rx Instructions .Route Qty: 9 1RF Rx Instructions: 1 sensor q 10 days (DME) lancing device with lancets [[employer] Delica Plus Lanc Dev] Kit See Rx Instructions .Route Qty: 100 1RF Rx Instructions: 4x/day (DME) pen needle, diabetic [BD Ultra-Fine Carol Pen Needle] 32 gauge x 5/32 needle See Rx Instructions .ROUTE .MEDSUPPLY Qty: 150 5RF Rx Instructions: 4 times daily alcohol swabs [BD Alcohol Swabs] Pads, Medicated 1 pad TOPICAL .4 times daily Qty: 200 5RF (DME) Omnipod 5 G6 Pods (Gen 5) Cartridge See Rx Instructions .Route Qty: 30 1RF Rx Instructions: 1 pod q 72 hours metoprolol succinate 25 mg tablet extended release 24 hr 25 mg PO DAILY Qty: 30 5RF Referrals / Follow Up: Kristal Sullivan MD [Primary Care Provider] - Within 2 Weeks Disposition Disposition (needs filled in before D/C Order can be placed): Home, Self Care 07/03/23 1252<Electronically signed by Nelly Gross MD>Nelly Gross MD CC: Dr. Kristal Sullivan MD; Dr. Daisy Diaz MD; Dr. Louis Koehler MD ~ Signed [facility] Work Phone: Discharge summary Author [facility] July 03, 2023 1:51pm Note Date/Time July 03, 2023 12:5 2pm [facility] Medical Records Department [address] [place] [id number] Discharge Summary 07/03/23 1252 MR#: [id number] Acct: [id number] Name: LAURIE GONZALES Rep #:[id number] : 1980 42 From: Nelly Gross MD PCP: Dr. Kristal Sullivan MD Status:ADM I N Location: ICU [place] [address] Providers Date of Admission: 07/01/23 Date of Discharge: 07/03/23 Primary Care Physician: Dr. Kristal Sullivan MD Consultations 07/01/23 19:28 Consult: Nephrology Routine Consulting Provider: Daisy Diaz Reason for Consult: ANN on CKD EMERGENT Consult: No MD Notified: Yes Date Notified: 07/01/23 Time Notified: 18:29 Method of Notification: ED Physician Initiated Reason For Visit: DYSPNEA ON EXERTION, ORTHOPNEA, ANN ON CKD Diagnosis Discharge Diagnosis (1) Stage 4 chronic kidney disease: Status: Chronic Code(s): N18.4 - Chronic kidney disease, stage 4 (severe) Plan #Exertional dyspnea * shortness of breath has improved, and is now on room air. * being diuresed with IV lasix * Chest x-ray on admission showed increased interstitial edema and vascular con gestion as well as bibasilar atelectasis. * 2D echo showed: EF of 55% with normal LV function and normal diastology for age. * #Ann on CKD IV * Cr was up to 4.68, and now down to 4.5. * nephrology consulted. * #Type 1 diabetes mellitus * Has history of diabetic retinopathy as well. * on insulin pump. * ISS. Accuchecks ACHS. * * #Hypertension: on metoprolol. DVT prophylaxis: on heparin Medications at Discharge Home Medications blood sugar diagnostic (FreeStyle Lite Strips) #100 ea 10/08/21 blood-glucose meter,continuous (Dexcom G6 Paper Coating Machine Operator) #1 ea 10/08/21 lancing device with lancets kit ([employer] Lancing Device kit) #100 ea 11/26/21 pen needle, diabetic 32 gauge x 5/32 (BD Ultra-Fine Carol Pen Needle) #150 ea 02/26/22 alcohol swabs (BD Alcohol Swabs) 1 pad topical .4 times daily #200 ea 05/20/22 insulin aspart U-100 100 unit/mL subcutaneous solution (Novolog U-100 Insulin aspart) 80 unit (0.8 mL) continuous subcutaneous infusion .continuous #72 mL 12/19/22 insulin pump cart,automated,BT (Omnipod 5 G6 Pods (Gen 5) subcutaneous cartridge) #30 ea 01/07/23 amlodipine 10 mg tablet 10 mg PO DAILY #90 tabs 05/14/23 blood-glucose sensor (Dexcom G6 Sensor device) #9 ea 05/14/23 blood-glucose transmitter (Dexcom G6 Transmitter device) #1 ea 05/14/23 rosuvastatin 10 mg tablet 10 mg PO DAILY #90 tabs 05/14/23 metoprolol succinate 25 mg tablet,extended release 24 hr 25 mg PO DAILY #30 tabs05/29/23 furosemide 40 mg tablet 40 mg PO DAILY #30 tabs 07/03/23 Hospital Course Operations None Procedures None Summary of Care Provided Minutes Spent on Discharge: 45 Hospital Course: Patient is a 42-year-old male with past medical history as outlined including hypertension, type 1 diabetes mellitus and CKD stage IV. He was admitted through the ED on 07/01/2023 with a complaint of shortness of breath, orthopnea and swelling of his face, hands and feet. He had been going on and worsening for about 3 days. He admitted to orthopnea. He had been diagnosed with CKD about 3 to 4 months ago. He denied any chest pain. Creatinine on admission was4.68. He was also hypoxic. Chest x-ray showed findings suggestive of mild degree of CHF with bibasilar atelectasis he was admitted and managed for fluid overload likely due to worsening CKD and probable heart failure. He was diuresed with IV Lasix. His shortness of breath improved and he did well. Nephrology was consulted and did not think the patient needed dialysis but woulddo well with diuresis. Patient's blood pressure was controlled with his blood pressure medications. He felt better and did well. He was discharged home on 07/03/2023. He was discharged on p.o. furosemide 40 mg daily as well as amlodipine and metoprolol. He is to follow-up with his primary care doctor and nephrology within 1 to 2 weeks. Patient seen and examined prior to discharge. He had no complaints and had an uneventful night. Review of systems otherwise negative. Labs and vitals reviewed. Home medication reviewed and reconciled. Physical Exam Const alert, oriented x3, no apparent distress and well nourished General Appearance: cooperative, comfortable, well kempt and well developed HEENT normocephalic, head/scalp atraumatic, hearing grossly normal bilaterally and moist oral mucous membranes Mouth: oral and palatal mucosa normal Eyes PERRL and EOMs intact bilaterally Neck supple and no JVD Lymph Lymphatic: no lymphadenopathy noted and no lymphedema noted Resp normal respiratory effort, normal air movement and clear to auscultation bilaterally Cardio regular rate, regular rhythm, S1 normal heart sound, S2 normal heart sound and no murmurs GI normal to inspection, nondistended, normoactive bowel sounds, soft to palpation and non-tender Extremity no clubbing, cyanosis or edema and no calf tenderness General Extremity: no tenderness to palpation of joints or extremities Skin General Skin Exam: no breakdown Neuro oriented x3, CN's II-XII intact bilaterally, moves all extremities, no focal motor deficits and no sensory deficits noted Sensorium / Orientation: awake Motor Exam: strength 5/5 throughout and general weakness Psych thought process normal, cooperative and affect normal Appearance: appropriate Weight / BMI Weight Weight: 227 lb 7.003 oz Body Mass Index (BMI) 31.7 ABG / Lab / Microbiology Data 07/03/23 04:20 07/03/23 04:20 Laboratory: Laboratory Results - last 24 hr 07/03/23 04:20: WBC 7.3, RBC 3.57 L, Hgb 9.7 L, Hct 29.4 L, MCV 82.4, MCH 27.2, MCHC 33.0, RDW Std Deviation 40.3, RDW Coeff of Marcella 13.3, Plt Count 286, MPV 8.9, Immature Gran % (Auto) 0.300, Neut % (Auto) 54.4, Lymph % (Auto) 27.4, Bee% (Auto) 11.9 H, Eos % (Auto) 5.0, Baso % (Auto) 1.0, Absolute Neuts (auto) 4.0,Absolute Lymphs (auto) 2.01, Nucleated RBC % 0, Sodium 140, Potassium 3.9, Chloride 111 H, Carbon Dioxide 23.0, Anion Gap 6, BUN 50 H, Creatinine 4.94 H, Estim Creat Clear Calc 24.30, Est GFR (MDRD) Af Amer 17 L, Est GFR (MDRD) Non-Af14 L, BUN/Creatinine Ratio 10.1, Glucose 110 H, Calcium 9.0 Radiography Diagnostic Testing: Radiology Impression Renal Ultrasound 07/02/23 14:01 IMPRESSION: Unremarkable examination of the kidneys. Electronically Signed: Gypsy Dickey MD at 8:39 EDT , D/C Instructions Discharge Diet: Low fat / Low cholesterol Discharge Activity: Return to Normal Activity Weight Bearing Status: Weight bearing as tolerated Call your doctor if you observe: Fever of 101 or Higher, Shortness of breath, Dizziness, Swelling in the ankles and Chest pain Meaningful Use Info Meaningful Use Diagnoses (Choose all that apply): None applicable Discharge Plan Admission Admit Date/Time: 07/01/23 17:44 Primary Reason for Your Visit: fluid overload Attending Provider: Nelly Gross Primary Care Provider: Kristal Sullivan Consulting Providers: Daisy Diaz; Louis Koehler Instructions Patient Instructions: Heart Failure: Know Your Baselines, ED Dyspnea Discharge Orders/Prescriptions Prescriptions: New furosemide 40 mg tablet 40 mg PO DAILY Qty: 30 2RF Continued (DME) FreeStyle Lite Strips Strip See Rx Instructions .Route Qty: 100 6RF Rx Instructions: 3x/day (DME) Dexcom G6 Paper Coating Machine Operator Misc See Rx Instructions .Route Qty: 1 0RF Rx Instructions: As directed insulin aspart U-100 [Novolog U-100 Insulin aspart] 100 unit/mL solution 80 unit continuous subcutaneous infusion .continuous Qty: 72 1RF amlodipine 10 mg tablet 10 mg PO DAILY Qty: 90 1RF rosuvastatin 10 mg tablet 10 mg PO DAILY Qty: 90 1RF (DME) Dexcom G6 Transmitter Device See Rx Instructions .Route Qty: 1 1RF Rx Instructions: 1 q 90 days (DME) Dexcom G6 Sensor Device See Rx Instructions .Route Qty: 9 1RF Rx Instructions: 1 sensor q 10 days (DME) lancing device with lancets [Docphinuch Delica Plus Lanc Dev] Kit See Rx Instructions .Route Qty: 100 1RF Rx Instructions: 4x/day (DME) pen needle, diabetic [BD Ultra-Fine Carol Pen Needle] 32 gauge x 5/32 needle See Rx Instructions .ROUTE .MEDSUPPLY Qty: 150 5RF Rx Instructions: 4 times daily alcohol swabs [BD Alcohol Swabs] Pads, Medicated 1 pad TOPICAL .4 times daily Qty: 200 5RF (DME) Omnipod 5 G6 Pods (Gen 5) Cartridge See Rx Instructions .Route Qty: 30 1RF Rx Instructions: 1 pod q 72 hours metoprolol succinate 25 mg tablet extended release 24 hr 25 mg PO DAILY Qty: 30 5RF Referrals / Follow Up: Kristal Sullivan MD [Primary Care Provider] - Within 2 Weeks Disposition Disposition (needs filled in before D/C Order can be placed): Home, Self Care Charges/Coding Visit Charges Inpatient E&M: 36691 Disch Hosp >30min 07/03/23 1351 <Electronically signed by Nelly Gross MD> Cosigner Signature (if applicable): CC: Dr. Kristal Sullivan MD; Dr. Nelly Gross MD~ Signed [facility] Work Phone: Discharge summary Author Garrison Valadez [facility] Note Date/Time July 20, 2024 4:4 5pm [facility] Medical Records Department [address] [place] [address] Instructions for Home/Discharge Instructions 07/20/24 1640 MR#: [id number] Acct: [id number] Name: LAURIE GONZALES Rep #:[id number] : 1980 43 From: Garrison Valadez MD PCP: Dr. Kristal Sullivan MD Status:REG S DC Discharge Instructions Diet Discharge Diet: No restrictions Activity Lifting Restrictions: do not lift > 20 lbs with left arm for 10 days Additional Activity Instructions:: do not submerge incision for 10 days Dressing / Incision Call your doctor if your incision/area has: Sudden Increased Bleeding, IncreasedPain/ Swelling, Increased Redness and Foul Smelling Discharge Call your doctor if you observe: Coldness, Increased Pain and Numbness or Tingling Remove Dressing in: 2 days Cleanse incision/area with: Soap & Water Follow Up Care Test Results: Test results from this visit will be discussed in further detail at your follow- up appointment, if applicable. Discharge Plan Admission Attending Provider: Garrison Valadez Primary Care Provider: Kristal Sullivan Instructions Print Language: Dutch Discharge Orders/Prescriptions Prescriptions: New oxycodone 5 mg tablet 5 mg PO Q8H PRN (Reason: pain) 2 Days Qty: 6 0RF Continued (DME) FreeStyle Lite Strips Strip See Rx Instructions .Route Qty: 100 6RF Rx Instructions: 3x/day clopidogrel 75 mg tablet 75 mg PO DAILY Qty: 90 3RF metoprolol succinate 25 mg tablet extended release 24 hr 25 mg PO DAILY Qty: 90 3RF aspirin 81 mg tablet,delayed release (DR/EC) 81 mg PO BREAKFAST Qty: 90 3RF (DME) Dexcom G6 Transmitter Device See Rx Instructions .Route Qty: 1 1RF Rx Instructions: 1 q 90 days insulin aspart U-100 [Novolog U-100 Insulin aspart] 100 unit/mL solution 80 unit continuous subcutaneous infusion .continuous Qty: 72 1RF rosuvastatin 10 mg tablet 10 mg PO DAILY Qty: 90 1RF sevelamer carbonate 800 mg tablet 800 mg PO DAILY Rx Instructions: must administer with a meal/food insulin glargine [Lantus Solostar U-100 Insulin] 100 unit/mL (3 mL) insulin pen 20 unit subcut QAM PRN (Reason: PRN) (DME) lancing device with lancets [OneTouch Delica Plus Lanc Dev] Kit See Rx Instructions .Route Qty: 100 1RF Rx Instructions: 4x/day (DME) pen needle, diabetic [BD Ultra-Fine Carol Pen Needle] 32 gauge x 5/32 needle See Rx Instructions .ROUTE .MEDSUPPLY Qty: 150 5RF Rx Instructions: 4 times daily alcohol swabs [BD Alcohol Swabs] Pads, Medicated 1 pad TOPICAL .4 times daily Qty: 200 5RF (DME) pen needle, diabetic [BD Ultra-Fine Carol Pen Needle] 32 gauge x 5/32 needle See Rx Instructions .ROUTE .MEDSUPPLY Qty: 50 0RF Rx Instructions: daily (DME) insulin syringe-needle U-100 [BD Insulin Syringe Ultra-Fine] 0.3 mL 31 gauge x 5/16 syringe See Rx Instructions .Route Qty: 100 1RF Rx Instructions: tid (DME) Dexcom G6 Paper Coating Machine Operator Misc See Rx Instructions .Route Qty: 1 0RF Rx Instructions: As directed (DME) Dexcom G6 Sensor Device See Rx Instructions .Route Qty: 9 1RF Rx Instructions: 1 sensor q 10 days (DME) Omnipod 5 G6-G7 Pods (Gen 5) Cartridge See Rx Instructions .Route Qty: 30 1RF Rx Instructions: change every 3 days amlodipine 5 mg tablet 5 mg PO DAILY Qty: 90 3RF Referrals / Follow Up: Kristal Sullivan MD [Primary Care Provider] - Disposition Disposition (needs filled in before D/C Order can be placed): Home, Self Care 07/20/24 1645<Electronically signed by Garrison Valadez MD>Garrison Valadez MD CC: Dr. Kristal Sullivan MD ~ Signed [facility] Work Phone: Discharge summary Author Louis Koehler [facility] Note Date/Time August 11, 2024 2:53p m [facility] Medical Records Department [address] [place] [id number] Discharge Summary 08/11/24 5420 MR#: [id number] Acct: [id number] Name: LAURIE GONZALES Rep #:[id number] : 1980 44 From: Louis Ricketts PCP: Dr. Kristal Sullivan MD Status:ADM I NO Location: [place] [address] Providers Date of Admission: 08/10/24 Date of Discharge: 08/11/24 Primary Care Physician: Dr. Kristal Sullivan MD Consultations 08/11/24 00:26 Consult: Nephrology Routine Consulting Provider: Daisy Diaz Reason for Consult: ESRD-HD dependent EMERGENT Consult: No MD Notified: Yes Date Notified: 08/10/24 Time Notified: 23:16 Method of Notification: Answering Service Reason For Visit: CHEST PAIN Diagnosis Discharge Diagnosis (1) Chest pain: Status: Acute Code(s): R07.9 - Chest pain, unspecified (2) Dyspepsia: Status: Acute Code(s): R10.13 - Epigastric pain (3) Elevated troponin: Status: Acute Code(s): R79.89 - Other specified abnormal findings of blood chemistry Plan This is 44-year-old gentleman was admitted with chest pain started after dialysis around 6 PM. Chest pain started back and then moved to the front sharpin nature along with nausea. Last HI in December 2023 that required stent in LAD. By the time patient came to ED chest pain had subsided. Denies family history of HI at young age 3. ACS ruled out. Patient is being admitted in PCU. Troponins have elevated 211, 193, 208, flat and indeterminant. Twelve-lead EKG shows sinus tachycardia 100/min, no ST-T changes, isolated T wave inversion in aVL. QTc 497 ms. Chest x-ray shows no acute process. CTA chest no PE or dissection. Repeat EKG shows sinus tachycardia 119 bpm, PAC, bifascicular block, RBBB and LAFB. ED physiciandiscussed with dry kiln loader Dr. Lio Cross and he reviewed his previous cardiac cath in December 2023 which showed small vessel disease not amenable to intervention. 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 Discussed with the dry kiln loader Dr. Garcia who reported that stress and he said patient cango home. No acute HI. Patient is being discharged. 2. Essential hypertension: Blood pressure is not controlled. Systolic in 170s. IV hydralazine and IV labetalol ordered. Patient is discharged and advised follow with PCP 3. Chest CTA shows 6.5 x 4 cm heterogeneously enhancing right hepatic lobe massnutrition diagnosis hemangioma. Advised follow-up with PCP for triple phage CT scan or MRI for further diagnosi. Outpatient follow-up s 4. End-stage renal disease: On Friday. Patient is being dialyzed today. [employer] Facilities Repairer consulted. On sevelamer 5. History of chronic anemia secondary to renal disease: Hemoglobin similar to baseline 13.6/39%. Repeat H&H 12.1/34.8% 6. DM type I- Continue insulin pump: Patient states he is on the transplant list for kidney and pancreas transplant. Electrolytes in the settable limit. Bicarb 21. Anion gap elevated 27 but anion gap and bicarb may be lab error because of problem in lab analyzer. A1c 7.2%. 7. Other comorbidities include secondary hyperparathyroidism related to ESRD, CAD, dyslipidemia and vitamin D deficiency: DVT prophylaxis - Subcu heparin 3 times daily CODE STATUS - Full code Medications at Discharge Home Medications blood sugar diagnostic (FreeStyle Lite Strips) #100 ea 10/08/21 lancing device with lancets kit ([employer] Plus Lancing Device kit) #100 ea 11/26/21 pen needle, diabetic 32 gauge x 5/32 (BD Ultra-Fine Carol Pen Needle) #150 ea 02/26/22 aspirin 81 mg tablet,delayed release 81 mg PO BREAKFAST #90 tabs 02/25/24 clopidogrel 75 mg tablet 75 mg PO DAILY #90 tabs 02/25/24 insulin aspart U-100 100 unit/mL subcutaneous solution (Novolog U-100 Insulin aspart) 80 unit (0.8 mL) continuous subcutaneous infusion .continuous #72 mL 02/25/24 metoprolol succinate 25 mg tablet,extended release 24 hr 25 mg PO DAILY #90 tabs104/26/23 rosuvastatin 10 mg tablet 10 mg PO DAILY #90 tabs 02/25/24 insulin syringe-needle U-100 0.3 mL 31 gauge x 5/16 (BD Insulin Syringe Ultra- Fine) #100 ea 03/30/24 pen needle, diabetic 32 gauge x 5/32 (BD Ultra-Fine Carol Pen Needle) #50 ea 03/30/24 blood-glucose meter,continuous (Dexcom G6 Paper Coating Machine Operator) #1 ea 04/01/24 insulin pump cart,auto,BT,G6/7 (Omnipod 5 G6-G7 Pods (Gen 5) subcutaneous cartridge) #30 ea 04/01/24 sevelamer carbonate 800 mg tablet 800 mg PO DAILY 06/18/24 blood-glucose sensor (Dexcom G6 Sensor device) #9 ea 07/23/24 blood-glucose transmitter (Dexcom G6 Transmitter device) #1 ea 07/23/24 cholecalciferol (vitamin D3) 50 mcg (2,000 unit) capsule 150 mcg PO MOWEFR 07/28/24 loratadine 5 mg-pseudoephedrine ER 120 mg tablet,extended release,12hr (Claritin-D 12 Hour) 1 tab PO Q12H 08/05/24 amlodipine 5 mg tablet 10 mg (2 x 5 mg) PO DAILY #90 tabs 08/11/24 Physical Exam Narrative Seen and examined Patient had mild nausea/one-time small vomiting/dry gagging after completion of dialysis yesterday. Then he complained of back pain/scapular pain with radiation to front of chest pain. He denied shortness of breath. He had 1 stent in LAD during last HI in December 2023 Physical exam: General: Alert, Oriented x3, Cooperative HEENT: Atraumatic, PERRLA, EOMI, Normocephalic. Oral: No Gingival or Mucosal Lesions/ Ulcerations Neck: Supple, No JVD, Negative Carotid Bruits Chest wall/Lungs: Tunneled dialysis catheter in upper right chest. Air entry diminished in bilateral lung bases. No crepitation/rhonchi Cardiovascular: Regular rate and rhythm, Normal S1,S2, No M/G/R Abdomen: Bowel Sounds Present, Soft, Non Tender, Non-Distended : No dysuria. No renal angle tenderness. No suprapubic tenderness. Extremities: No edema, Capillary Refill Less than 3 Seconds Skin: No rashes, No breakdown Musculoskeletal: No Tenderness to Palpation of Joints or Extremities Neurological: Cranial nerves II-XII grossly intact, DTR 2+/4. No acute focal neurological deficit. Psych/Mental Status: Normal Affect, Appropriate. Weight / BMI Weight Weight: 194 lb 14.218 oz Body Mass Index (BMI) 27.1 ABG / Lab / Microbiology Data 08/11/24 05:26 08/11/24 05:26 Laboratory: Laboratory Results - last 24 hr 08/10/24 19:40: WBC 11.5 H, RBC 4.42 L, Hgb 13.6, Hct 39.0 L, MCV 88.2, MCH 30.8, MCHC 34.9, RDW Std Deviation 41.7, RDW Coeff of Marcella 12.8, Plt Count 359, MPV 9.2, Immature Gran % (Auto) 0.500, Neut % (Auto) 77.5 H, Lymph % (Auto) 12.1L, Bee % (Auto) 8.3, Eos % (Auto) 1.0, Baso % (Auto) 0.6, Absolute Neuts (auto)8.9 H, Absolute Lymphs (auto) 1.39, Nucleated RBC % 0, Sodium 138, Potassium 4.0, Chloride 91 L, Carbon Dioxide 20.8 L, Anion Gap 26 H, BUN 48 H, Creatinine 6.57 H, Estim Creat Clear Calc 15.60 L, Est GFR (MDRD) Non-Af 10 L, BUN/Creatinine Ratio 7.3 L, Glucose 118 H, Calcium 11.0, Troponin T High Sens 211H* 08/10/24 19:46: PT 12.7, INR 0.9, APTT 24.5 08/10/24 21:35: Troponin T Hi Sens 2 Hr 193 H* 08/10/24 23:40: Troponin T Hi Sens 4Hr 208 H*, Lipase 25 08/11/24 05:26: WBC 10.9, RBC 3.87 L, Hgb 12.1 L, Hct 34.8 L, MCV 89.9, MCH 31.3, MCHC 34.8, RDW Std Deviation 42.2, RDW Coeff of Marcella 13.0, Plt Count 302, MPV 9.4, Immature Gran % (Auto) 0.400, Neut % (Auto) 75.1 H, Lymph % (Auto) 13.4L, Bee % (Auto) 9.6, Eos % (Auto) 0.8, Baso % (Auto) 0.7, Absolute Neuts (auto)8.2 H, Absolute Lymphs (auto) 1.47, Nucleated RBC % 0, Sodium 136, Potassium 4.4, Chloride 89 L, Carbon Dioxide 20.8 L, Anion Gap 27 H, BUN 56 H, Creatinine 7.33 H, Estim Creat Clear Calc 13.98 L, Est GFR (MDRD) Non-Af 9 L, BUN/Creatinine Ratio 7.7 L, Glucose 183 H, Hemoglobin A1c 7.2 H, Calcium 9.6, Phosphorus 6.8 H, Magnesium 2.6 H, Total Bilirubin 0.38, AST 18, ALT 10, AlkalinePhosphatase 81, Total Protein 7.1, Albumin 4.3, Globulin 2.7, Albumin/Globulin Ratio 1.6, Triglycerides 146, Cholesterol 145, LDL Cholesterol, Calc 61, VLDL Cholesterol 29, HDL Cholesterol 55, Cholesterol/HDL Ratio 2.65 Radiography Diagnostic Testing: Radiology Impression Chest X-Ray 08/10/24 20:05 IMPRESSION: No acute cardiopulmonary abnormality. Reading Location: [id number] Chest CTA 08/10/24 21:35 IMPRESSION: No evidence of pulmonary embolism or acute findings in the thorax. 6.5 x 4.7 cm right hepatic lobe mass. Differential considerations include a hemangioma. Recommend further evaluation with CT or MRI liver protocol. Reading Location: [facility] Instructions Discharge Diet: Low fat / Low cholesterol, 1800 Calorie Control Diet and 2000 mgSodium Diet Weight Bearing Status: Weight bearing as tolerated Call your doctor if you observe: Fever of 101 or Higher, Coldness, Increased Pain, Numbness or Tingling, Change in Color, Inability to urinate, Inability to have a bowel movement, Shortness of breath, Dizziness, Fainting spells, Swellingin the ankles, Chest pain, Prolonged hiccupping, Increased palpitations (irregular heartbeat) and Calf discomfort DC O2, CPAP, BIPAP Needs Home O2 Discharge instructions: No When: IN 2 WEEKS Meaningful Use Info Meaningful Use Meaningful Use Diagnoses (Choose all that apply): None applicable Ischemic Stroke Statin Dosing Therapy Reference: STATIN DOSE THERAPY REFERENCE: * Patients > 75 years receive moderate or high dose statin therapy. * Patients 75 years or YOUNGER should receive HIGH intensity statin dose unless contraindicated. You will be required to document reason for non-treatment if statin daily dose does not meet guidelines. HIGH DOSE STATIN THERAPY DAILY Atorvastatin > than or = to 40 mg Rosuvastatin > than or = to 20 mg Amlodipine + Atorvastatin > than or = to 2.5/40 mg Ezetimibe + Simvastatin 10/80 mg Simvastatin 80mg Discharge Plan Admission Admit Date/Time: 08/10/24 23:09 Primary Reason for Your Visit: Atypical chest pain. ACS ruled out Attending Provider: Louis Koehler Primary Care Provider: Kristal Sullivan Consulting Providers: Eugenia London; Daisy Diaz Discharge Orders/Prescriptions Prescriptions: Continued (DME) FreeStyle Lite Strips Strip See Rx Instructions .Route Qty: 100 6RF Rx Instructions: 3x/day clopidogrel 75 mg tablet 75 mg PO DAILY Qty: 90 3RF metoprolol succinate 25 mg tablet extended release 24 hr 25 mg PO DAILY Qty: 90 3RF aspirin 81 mg tablet,delayed release (DR/EC) 81 mg PO BREAKFAST Qty: 90 3RF insulin aspart U-100 [Novolog U-100 Insulin aspart] 100 unit/mL solution 80 unit continuous subcutaneous infusion .continuous Qty: 72 1RF rosuvastatin 10 mg tablet 10 mg PO DAILY Qty: 90 1RF cholecalciferol (vitamin D3) 50 mcg (2,000 unit) capsule 150 mcg PO MOWEFR sevelamer carbonate 800 mg tablet 800 mg PO DAILY Rx Instructions: must administer with a meal/food Claritin-D 12 Hour 5-120 mg tablet extended release 12 hr 1 tab PO Q12H (DME) lancing device with lancets [OneTouch Delica Plus Lanc Dev] Kit See Rx Instructions .Route Qty: 100 1RF Rx Instructions: 4x/day (DME) pen needle, diabetic [BD Ultra-Fine Carol Pen Needle] 32 gauge x 5/32 needle See Rx Instructions .ROUTE .MEDSUPPLY Qty: 150 5RF Rx Instructions: 4 times daily (DME) pen needle, diabetic [BD Ultra-Fine Carol Pen Needle] 32 gauge x 5/32 needle See Rx Instructions .ROUTE .MEDSUPPLY Qty: 50 0RF Rx Instructions: daily (DME) insulin syringe-needle U-100 [BD Insulin Syringe Ultra-Fine] 0.3 mL 31 gauge x 5/16 syringe See Rx Instructions .Route Qty: 100 1RF Rx Instructions: tid (DME) Dexcom G6 Paper Coating Machine Operator Misc See Rx Instructions .Route Qty: 1 0RF Rx Instructions: As directed (DME) Omnipod 5 G6-G7 Pods (Gen 5) Cartridge See Rx Instructions .Route Qty: 30 1RF Rx Instructions: change every 3 days (DME) Dexcom G6 Sensor Device See Rx Instructions .Route Qty: 9 1RF Rx Instructions: 1 sensor q 10 days (DME) Dexcom G6 Transmitter Device See Rx Instructions .Route Qty: 1 1RF Rx Instructions: 1 q 90 days Changed amlodipine 5 mg tablet 10 mg PO DAILY Qty: 90 3RF Referrals / Follow Up: Self,Naila Tan [Emergency Nurse] - Kristal Sullivan MD [Primary Care Provider] - Daisy Diaz MD [Med Staff - Consulting] - Within 1 Month Disposition Disposition (needs filled in before D/C Order can be placed): Home, Self Care Charges/Coding Visit Charges Inpatient E&M: 47538 Disch Hosp >30min 08/11/24 1453 <Electronically signed by Louis Koehler MD> Cosigner Signature (if applicable): CC: Dr. Kristal Sullivan MD; Dr. Daisy Diaz MD; Dr. Louis Koehler MD~ Signed [facility] Work Phone: Discharge summary Author Laurie Cheemaehne [facility] Note Date/Time August 23, 2024 8:18a m [facility] Medical Records Department [address] [place] [address] Emergency Department Summary 08/23/24 MR#: [id number] Acct: [id number] Name: LAURIE GONZALES Rep #:[id number] : 1980 44 From: Laurie Thrasher PCP: Dr. Kristal Sullivan MD Status:REG E R Location: ED HPI History of Present Illness Chief Complaint: Fever Informant: patient and family Narrative Narrative: 44-year-old male presenting to the emergency room for evaluation of fever and vomiting. Apparently the patient has been having some nausea and vomiting for weeks. He has GI follow-up. Tonight noted to have fever and took some ibuprofen. He has a history of type 1 diabetes as well as end-stage renal disease on dialysis. Patient denies any diarrhea. No significant cough. Family notes he has been having some mild rhinorrhea. No sore throat. No rashes. He states he generally feels weak all over. He was able to walk back from the bathroom and easily flops onto the bed without pain. [facility] Medical History Elevated troponin Insulin dependent diabetes mellitus Diabetes History of renal dialysis History of renal disease Back pain Injury of back Dietary restriction Gastric reflux Non-smoker Leg cramps Cardiology follow-up encounter History of echocardiogram History of heart attack Acute non-ST elevation myocardial infarction (NSTEMI) CKD (chronic kidney disease), stage V Congestive heart failure of unknown etiology Overweight (BMI 25.0-29.9) NSTEMI, initial episode of care Acute kidney injury superimposed on chronic kidney disease Elevated troponin Pre-op testing ESRF (end stage renal failure) Stage 4 chronic kidney disease Diabetes mellitus type 1 Insulin pump titration Presence of insulin pump CKD (chronic kidney disease) Hypertension Obesity Abscess Charcot foot due to diabetes mellitus Type 1 diabetes mellitus Acute kidney injury DKA (diabetic ketoacidoses) DM type 1 (diabetes mellitus, type 1) Home Medications ?Medication ?Instructions ?Recorded ?Last Taken ?Type blood sugar diagnostic (FreeStyle #100 ea 10/08/21 Unk nown Rx Lite Strips) lancing device with lancets kit #100 ea 11/26/21 Unkno wn Rx (OneTouch Delica Plus Lancing Device kit) pen needle, diabetic 32 gauge x #150 ea 02/26/22 Unkno wn Rx (BD Ultra-Fine Carol Pen Needle) aspirin 81 mg tablet,delayed 81 mg PO BREAKFAST #90 ta bs 02/25/24 08/10/24 Rx release clopidogrel 75 mg tablet 75 mg PO DAILY #90 tabs 01/3008/10/24 Rx metoprolol succinate 25 mg 25 mg PO DAILY #90 tabs 08/10/24 Rx tablet,extended release 24 hr rosuvastatin 10 mg tablet 10 mg PO DAILY #90 tabs 01/3008/10/24 Rx insulin syringe-needle U-100 0.3 #100 ea 03/30/24 Unkn own Rx mL 31 gauge x 5/16 (BD Insulin Syringe Ultra-Fine) pen needle, diabetic 32 gauge x #50 ea 03/30/24 Unknow n Rx (BD Ultra-Fine Carol Pen Needle) blood-glucose,grain merchandising manager,cont #1 ea 04/01/24 Unknown Rx (Dexcom G6 Paper Coating Machine Operator) insulin pump cart,auto,BT,G6/7 #30 ea 04/01/24 Unknown Rx (Omnipod 5 G6-G7 Pods (Gen 5) subcutaneous cartridge) sevelamer carbonate 800 mg tablet 800 mg PO DAILY 05/3008/10/24 History blood-glucose sensor (Dexcom G6 #9 ea 07/23/24 Unknown Rx Sensor device) blood-glucose transmitter (Dexcom #1 ea 07/23/24 Unkno wn Rx G6 Transmitter device) cholecalciferol (vitamin D3) 50 150 mcg PO MOWEFR 07/0108/09/24 History mcg (2,000 unit) capsule loratadine 5 mg-pseudoephedrine ER 1 tab PO Q12H 08/05 Unknown History 120 mg tablet,extended release,12hr (Claritin-D 12 Hour) amlodipine 5 mg tablet 10 mg (2 x 5 mg) PO DAILY #9 0 tabs 08/11/24 08/10/24 Rx pantoprazole 40 mg tablet,delayed 40 mg PO QDAY #90 ta bs 08/17/24 Unknown Rx release sucralfate 100 mg/mL oral 10 ml PO QACHS #1,200 mL Unknown Rx suspension (Carafate) insulin aspart U-100 100 unit/mL 80 unit (0.8 mL) cont inuous 08/20/24 Unknown Rx subcutaneous solution (Novolog subcutaneous infusion . continuous U-100 Insulin aspart) #72 mL ondansetron HCl 4 mg tablet 4 mg PO Q8 PRN nausea/vomi ting 08/23/24 Unknown History Allergy/AdvReac Type Severity Reaction Status Date / Time No Known Allergies Allergy Verified 08/23/24 00:33 Family History Mother Diabetes Thyroid disorder Grandmother Diabetes Grandfather Diabetes Surgical History History of cardiac catheterization History of heart surgery Hx of surgical procedure History of coronary artery stent placement History of surgery on lower extremity Social History Smoking Status: Never smoker alcohol intake: never substance use type: does not use ROS ROS ED Constitutional Constitutional ED: Reports chills and fever(s); Denies weight loss Eyes Eyes: Denies change in vision or diplopia ENT ENT ED: Reports rhinorrhea; Denies ear pain or sore throat Cardiovascular Cardiovascular: Denies chest pain, orthopnea, palpitations or racing heartbeat Respiratory/Chest Respiratory/Chest: Denies cough, dyspnea or orthopnea Gastrointestinal Gastrointestinal: Reports nausea and vomiting; Denies abdominal pain or diarrhea Genitourinary Genitourinary ED: Denies dysuria, hematuria or urinary frequency Musculoskeletal Musculoskeletal: Denies arthralgias, myalgias or neck pain Integumentary Denies abscess or rash Neurologic Neurologic: Denies headache(s) or weakness Psychiatric Psychiatric: Denies anxiety, depression, suicidal ideation or suicidal thoughts Endocrine Endocrinology: Denies polydipsia, polyphagia or polyuria Allergic/Immunologic Allergic/Immunologic ED: Denies mouth swelling, tongue swelling or urticaria EXAM Physical Exam Const Vital Signs: 08/23/24 00:31 08/23/24 00:57 08/23/24 01:08 Temperature 103.1 F H 103.1 F H Temperature Source Oral Oral Pulse Rate 135 H 135 H Respiratory Rate 24 H 24 H Respiratory Effort Normal Non-Labored Respiratory Pattern Normal Blood Pressure 93/78 93/78 Blood Pressure Mean 83 83 Pulse Ox 100 100 Oxygen Delivery Method Room Air Room Air 08/23/24 02:00 08/23/24 03:00 Temperature 101.4 F H 99.7 F H Temperature Source Oral Oral Pulse Rate 123 H 113 H Respiratory Rate 20 H 18 Respiratory Effort Respiratory Pattern Blood Pressure 102/64 105/70 Blood Pressure Mean 76 81 Pulse Ox 98 98 Oxygen Delivery Method Room Air Room Air Positive well nourished and well developed General Appearance ED: well developed and NAD HEENT Reports normocephalic, head/scalp atraumatic and moist mucous membranes Eyes PERRL and EOMs intact bilaterally Neck no lymphadenopathy, supple and no JVD Resp normal respiratory effort and clear to auscultation bilaterally Cardio regular rate, regular rhythm and no murmurs Rate: tachycardic GI normal to inspection, nondistended, normoactive bowel sounds and non-tender Palpation: soft Back/Spine no CVA tenderness and normal ROM Extremity normal to inspection General Extremety ED: Negative for edema General Extremity: Negative for edema Neuro oriented x3 and CN's II-XII intact bilaterally Sensorium / Orientation: alert Motor Exam: strength 5/5 throughout Psych mental status grossly normal Mood & Affect: Negative for depressed or tearful Skin no rashes or lesions noted and no wounds Sepsis Attestation Sepsis Alert: Yes Sepsis Attestation: Agree w/Sepsis Date exam was performed: 08/23/24 Time exam was performed: 01:30 Possible Source of Sepsis: Unknown Sepsis Organ Dysfunction Criteria Present: Creatinine > 2.0 mg/dL and Lactic Acid > 2 mmol/L Fluid Resuscitation Fluid resuscitation indicated?: Yes Fluid Resuscitation ordered: Lesser volume fluid bolus ordered Amount of fluid ordered: 1,000 Reason for lesser fluid bolus:: Concern for fluid overload and Renal Failure Sepsis Note Date exam was performed: 08/23/24 Time exam was performed: 02:20 Sepsis Attestation: Sepsis re-evaluation was performed Response to fluids: Fluid responsive hypotension MDM MDM MDM Narrative Medical decision making narrative: Differential diagnosis includes but not limited to fever of unknown origin UTI electrolyte abnormalities pneumonia bacteremia liver dysfunction Patient's white count is 26.1 with a hemoglobin of 11.9 platelet count of 258. BMP shows a creatinine 8.87 BUN of 54 CO2 of 19 anion gap is 22 potassium 3.6 normal LFTs urinalysis is negative for infection. My independent interpretationof the chest x-ray is in no acute process. COVID influenza and RSV swabs were negative. Blood cultures were obtained. Patient received a liter of IV fluids as well as Tylenol. Additional fluids will need to be very judicious given the fact that he is a dialysis patient and concern for fluid overload. His lactic acid is noted to be elevated at 2.5. Vancomycin and Zosyn were ordered. I am told by nursing supervisor lead burning that we do not have dialysis coverage on Friday. He is due for dialysis tomorrow. He will need to be transferred. Family would like me to try [facility] as they work in [place] and would be easier for them. Unfortunately they do not have any bed availability. I spoke with the patient and his family regarding other options that [facility] gave me including [facility] versus [facility]. Theywould like me to try [facility]. I spoke with [facility] and the patient has been accepted. History & Record Review Discussion w/independent historian: Patient and Family Additional record(s) reviewed:: Prior inpatient record, Prior ED visit and Priorlabs Lab Data Attestation: I reviewed the patient's lab results. Labs: Laboratory Results - last 24 hr 08/23/24 08/23/24 08/23/24 00:55 00:57 02:09 WBC 26.1 H RBC 3.83 L Hgb 11.9 L Hct 33.5 L MCV 87.5 MCH 31.1 MCHC 35.5 RDW Std Deviation 39.8 RDW Coeff of Marcella 12.6 Plt Count 250 MPV 9.1 Immature Gran % (Auto) 1.500 H Neut % (Auto) 93.6 H Lymph % (Auto) 1.4 L Bee % (Auto) 3.2 Eos % (Auto) 0.0 Baso % (Auto) 0.3 Absolute Neuts (auto) 24.4 H Absolute Lymphs (auto) 0.36 L Nucleated RBC % 0 Differential Comment SCANNED PT 14.7 INR 1.1 APTT 28.3 Sodium 135 Potassium 3.6 Chloride 93 L Carbon Dioxide 19.1 L Anion Gap 22 H BUN 54 H Creatinine 8.87 H* Estim Creat Clear Calc 11.55 L Est GFR (MDRD) Non-Af 7 L BUN/Creatinine Ratio 6.1 L Glucose 220 H Lactic Acid 2.5 H* Calcium 10.5 Phosphorus 1.2 L* Magnesium 1.7 Total Bilirubin 0.41 AST 17 ALT 12 Alkaline Phosphatase 94 Total Protein 7.6 Albumin 4.7 Globulin 3.0 Albumin/Globulin Ratio 1.6 b-Hydroxybutyric mmol/L 1.2 Urine Color Yellow Urine Clarity Clear Urine pH 7.0 Ur Specific Widener 1.010 Urine Protein 500 H Urine Glucose (UA) 1000 H Urine Ketones Negative Urine Occult Blood 50 H Urine Nitrite Negative Urine Bilirubin Negative Urine Urobilinogen Normal Ur Leukocyte Esterase Negative Urine RBC 0 SEEN Urine WBC 0 SEEN Ur Squamous Epith Cells 0 SEEN Urine Bacteria 0 SEEN Urine Mucus 0 SEEN Radiography Diagnostic Testing: Clinical Impression(s) from Imaging Studies Chest X-Ray 08/23/24 01:10 IMPRESSION: No evidence of acute disease. Reading Location: [facility] EKG Initial EKG: Attestation: I personally reviewed and interpreted this EKG as follows: Comments: Sinus tachycardia ventricular rate of 126 bpm Management Discussion w/another healthcare provider: Packaging Coordinator (Dr Mejia ([facility])) Discharge Plan Triage Chief Complaint: Fever Other Complaint: Nausea/Vomiting ED Provider: Laurie Elizalde Dx/Rx/DC Orders Clinical Impression: DM type 1 (diabetes mellitus, type 1), ESRD (end stage renal disease) on dialysis, Fever of unknown origin (FUO), Sepsis Prescriptions: No Action (DME) FreeStyle Lite Strips Strip See Rx Instructions .Route Qty: 100 6RF Rx Instructions: 3x/day clopidogrel 75 mg tablet 75 mg PO DAILY Qty: 90 3RF metoprolol succinate 25 mg tablet extended release 24 hr 25 mg PO DAILY Qty: 90 3RF aspirin 81 mg tablet,delayed release (DR/EC) 81 mg PO BREAKFAST Qty: 90 3RF rosuvastatin 10 mg tablet 10 mg PO DAILY Qty: 90 1RF cholecalciferol (vitamin D3) 50 mcg (2,000 unit) capsule 150 mcg PO MOWEFR sevelamer carbonate 800 mg tablet 800 mg PO DAILY Rx Instructions: must administer with a meal/food Claritin-D 12 Hour 5-120 mg tablet extended release 12 hr 1 tab PO Q12H sucralfate [Carafate] 100 mg/mL suspension 10 ml PO QACHS Qty: 1200 1RF pantoprazole 40 mg tablet,delayed release (DR/EC) 40 mg PO QDAY Qty: 90 1RF Rx Instructions: take once every morning on an empty stomach amlodipine 5 mg tablet 10 mg PO DAILY Qty: 90 3RF ondansetron HCl 4 mg tablet 4 mg PO Q8 PRN (Reason: nausea/vomiting) (DME) lancing device with lancets [[place] Scene EndeavorsTouch Delica Plus Lanc Dev] Kit See Rx Instructions .Route Qty: 100 1RF Rx Instructions: 4x/day (DME) pen needle, diabetic [BD Ultra-Fine Carol Pen Needle] 32 gauge x 5/32 needle See Rx Instructions .ROUTE .MEDSUPPLY Qty: 150 5RF Rx Instructions: 4 times daily (DME) pen needle, diabetic [BD Ultra-Fine Carol Pen Needle] 32 gauge x 5/32 needle See Rx Instructions .ROUTE .MEDSUPPLY Qty: 50 0RF Rx Instructions: daily (DME) insulin syringe-needle U-100 [BD Insulin Syringe Ultra-Fine] 0.3 mL 31 gauge x 5/16 syringe See Rx Instructions .Route Qty: 100 1RF Rx Instructions: tid (DME) Dexcom G6 Paper Coating Machine Operator Misc See Rx Instructions .Route Qty: 1 0RF Rx Instructions: As directed (DME) Omnipod 5 G6-G7 Pods (Gen 5) Cartridge See Rx Instructions .Route Qty: 30 1RF Rx Instructions: change every 3 days (DME) Dexcom G6 Sensor Device See Rx Instructions .Route Qty: 9 1RF Rx Instructions: 1 sensor q 10 days (DME) Dexcom G6 Transmitter Device See Rx Instructions .Route Qty: 1 1RF Rx Instructions: 1 q 90 days insulin aspart U-100 [Novolog U-100 Insulin aspart] 100 unit/mL solution 80 unit continuous subcutaneous infusion .continuous Qty: 72 1RF Primary Care Provider: Kristal Sullivan Referrals: Kristal Sullivan MD [Primary Care Provider] - Print Language: Dutch Disposition Disposition: Acute Care Hospital Discharge Location: [facility] What to do if you have Problems For any increased pain, shortness of breath, bleeding, nausea or vomiting, chestpain, or any unexpected problems, contact your Primary Care Provider. Call [facility] ([phone]) or report to the closest Emergency Room. Call 911 if necessary. 08/23/24 0818 <Electronically signed by Laurie Elizalde DO> Cosigner Signature (if applicable): CC: Dr. Kristal Sullivan MD ~ Signed [facility] Work Phone: Evaluation + Plan note No data available for this section [facility] Evaluation note* Diagnosis Onset Date Resolution Status CKD (chronic kidney disease) chronic Diabetes chronic Hypertension chronic Obesity [facility] Work Phone: Evaluation note* Diagnosis Onset Date Resolution Status Diabetes chronic Hypertension chronic Microalbuminuria chronic Obesity chronic Vitamin D deficiency [facility] Work Phone: Evaluation note* Diagnosis Type 1 diabetes mellitus with hyperosmolarity without coma (HCC)- Primary Gastroesophageal reflux disease without esophagitis Esophageal reflux Essential hypertension Unspecified essential hypertension Class 1 obesity with serious comorbidity in adult, unspecified BMI, unspecified obesity type [facility] Diagnosis Type 1 diabetes mellitus with hyperosmolarity without coma (HCC) Mixed hyperlipidemia [facility]* Diagnosis Class 1 obesity with serious comorbidity in adult, unspecified BMI, unspecified obesity type- Primary Special screening examination for viral disease Special screening examination for unspecified viral disease Screening for HIV (human immunodeficiency virus) Special screening examination for other specified viral diseases Essential hypertension Unspecified essential hypertension [facility] Diagnosis Class 1 obesity with serious comorbidity in adult, unspecified BMI, unspecified obesity type- Primary Type 1 diabetes mellitus with other specified complication (HCC) Low blood sugar Hypoglycemia, unspecified [facility]* Diagnosis Onset Date Resolution Status Diabetes mellitus type 1 chr onic Hyperlipidemia chronic Hypertension chronic Insulin pump titration chron ic Microalbuminuria chronic Obesity chronic Presence of insulin pump chr onic Stage 4 chronic kidney disease chronic [facility] Work Phone: Evaluation note* Diagnosis Onset Date Resolution Status Diabetes mellitus type 1 chr onic Hyperlipidemia chronic Hypertension chronic Insulin pump titration chron ic Microalbuminuria chronic Obesity chronic Presence of insulin pump chr onic Stage 4 chronic kidney disease chronic Acute kidney injury acute Dyspnea on exertion acute Volume overload acute CKD (chronic kidney disease) chronic Diabetes mellitus type 1 chr onic Hypertension chronic Obesity chronic [facility] Work Phone: Evaluation note* Diagnosis Onset Date Resolution Status Diabetes mellitus type 1 chr onic Hyperlipidemia chronic Hypertension chronic Insulin pump titration chron ic Microalbuminuria chronic Obesity chronic Presence of insulin pump chr onic Stage 4 chronic kidney disease chronic Acute kidney injury acute Dyspnea on exertion acute Volume overload acute CKD (chronic kidney disease) chronic Diabetes mellitus type 1 chr onic Hypertension chronic Obesity chronic Stage 4 chronic kidney disease chronic [facility] Work Phone: Evaluation note* Diagnosis Onset Date Resolution Status Hyperlipidemia chronic Insulin pump titration chron ic Microalbuminuria chronic Presence of insulin pump chr onic Dyspnea on exertion resolved Volume overload resolved [facility] Work Phone: Evaluation note* Diagnosis Pre-transplant evaluation for kidney and pancreas transplant- Primary Other specified pre-operative examination Chronic renal failure, stage 4 (severe) (HCC) [facility] Diagnosis Pre-transplant evaluation for kidney transplant- Primary Other specified pre-operative examination documented in this encounter [facility] note* Diagnosis Onset Date Resolution Status Hyperlipidemia chronic Insulin pump titration chron ic Microalbuminuria chronic Presence of insulin pump chr onic CKD (chronic kidney disease) chronic Dyspnea on exertion resolved Volume overload resolved CKD (chronic kidney disease) [facility] Work Phone: Evaluation note* Diagnosis Pre-transplant evaluation for kidney and pancreas transplant- Primary Other specified pre-operative examination [facility]* Diagnosis Pre-transplant evaluation for kidney transplant- Primary Other specified pre-operative examination [facility]* Diagnosis Awaiting organ transplant status- Primary [facility]* Diagnosis Encounter for other preprocedural examination- Primary CKD (chronic kidney disease) stage 5, GFR less than 15 ml/min ([facility]) Chronic kidney disease, Stage V Pre-transplant evaluation for CKD (chronic kidney disease) Other specified pre-operative examination 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) [facility] Diagnosis Pre-transplant evaluation for kidney transplant- Primary Other specified pre-operative examination documented in this encounter [facility] note* Diagnosis Chronic renal failure, stage 4 (severe) (HCC) Pre-transplant evaluation for kidney and pancreas transplant Other specified pre-operative examination [facility] Diagnosis ESRD on dialysis (HCC)- Primary End stage renal disease 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) Type I (juvenile type) diabetes mellitus with renal manifestations, not stated as uncontrolled [facility]* Diagnosis Brittle diabetes (HCC)- Primary Type II or unspecified type diabetes mellitus without mention of complication, not stated as uncontrolled ALLERGIC RHINITIS NOS Allergic rhinitis, cause unspecified Other specified diabetes mellitus with other specified neurological complication Encounter to establish care Other reasons for seeking consultation Gastroesophageal reflux disease without esophagitis Esophageal reflux HYPERLIPIDEMIA NEC/NOS Other and unspecified hyperlipidemia 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- Primary Type I (juvenile type) diabetes mellitus with peripheral circulatory disorders, uncontrolled Non morbid obesity due to excess calories Primary insomnia Persistent disorder of initiating or maintaining sleep 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, macular edema presence unspecified Pain and swelling of toe of right foot [facility] Diagnosis Brittle diabetes (HCC)- Primary Type II or unspecified type diabetes mellitus without mention of complication, not stated as uncontrolled ALLERGIC RHINITIS NOS Allergic rhinitis, cause unspecified Other specified diabetes mellitus with other specified neurological complication Encounter to establish care Other reasons for seeking consultation Gastroesophageal reflux disease without esophagitis Esophageal reflux HYPERLIPIDEMIA NEC/NOS Other and unspecified hyperlipidemia 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- Primary Type I (juvenile type) diabetes mellitus with peripheral circulatory disorders, uncontrolled Non morbid obesity due to excess calories Primary insomnia Persistent disorder of initiating or maintaining sleep 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, macular edema presence unspecified Encounter for other preprocedural examination documented in this encounter [facility] note* Diagnosis Brittle diabetes (HCC)- Primary Type II or unspecified type diabetes mellitus without mention of complication, not stated as uncontrolled ALLERGIC RHINITIS NOS Allergic rhinitis, cause unspecified Other specified diabetes mellitus with other specified neurological complication Encounter to establish care Other reasons for seeking consultation Gastroesophageal reflux disease without esophagitis Esophageal reflux HYPERLIPIDEMIA NEC/NOS Other and unspecified hyperlipidemia 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- Primary Type I (juvenile type) diabetes mellitus with peripheral circulatory disorders, uncontrolled Non morbid obesity due to excess calories Primary insomnia Persistent disorder of initiating or maintaining sleep 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, macular edema presence unspecified Encounter for other preprocedural examination [facility]* Diagnosis Brittle diabetes (HCC)- Primary Type II or unspecified type diabetes mellitus without mention of complication, not stated as uncontrolled ALLERGIC RHINITIS NOS Allergic rhinitis, cause unspecified Other specified diabetes mellitus with other specified neurological complication Encounter to establish care Other reasons for seeking consultation Gastroesophageal reflux disease without esophagitis Esophageal reflux HYPERLIPIDEMIA NEC/NOS Other and unspecified hyperlipidemia 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- Primary Type I (juvenile type) diabetes mellitus with peripheral circulatory disorders, uncontrolled Non morbid obesity due to excess calories Primary insomnia Persistent disorder of initiating or maintaining sleep 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, macular edema presence unspecified Type 1 diabetes mellitus with other specified complication (HCC)- Primary documented in this encounter [facility] note* Diagnosis Brittle diabetes (HCC)- Primary Type II or unspecified type diabetes mellitus without mention of complication, not stated as uncontrolled ALLERGIC RHINITIS NOS Allergic rhinitis, cause unspecified Other specified diabetes mellitus with other specified neurological complication Encounter to establish care Other reasons for seeking consultation Gastroesophageal reflux disease without esophagitis Esophageal reflux HYPERLIPIDEMIA NEC/NOS Other and unspecified hyperlipidemia 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- Primary Type I (juvenile type) diabetes mellitus with peripheral circulatory disorders, uncontrolled Non morbid obesity due to excess calories Primary insomnia Persistent disorder of initiating or maintaining sleep 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, macular edema presence unspecified Annual physical exam- Primary Routine general medical examination at a health care facility Obstructive sleep apnea (adult) (pediatric) Essential (primary) hypertension Unspecified essential hypertension 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 ([facility]) Pruritus Unspecified pruritic disorder Dependence on renal dialysis ([facility]) Renal dialysis status End stage renal disease ([facility]) End stage renal disease documented in this encounter [facility] note* Diagnosis MSSA bacteremia- Primary History of myocardial infarction Vitreous floaters, unspecified laterality History of myocardial infarction Complication associated with dialysis catheter Sepsis due to methicillin susceptible Staphylococcus aureus (MSSA) without acute organ dysfunction ([facility]/HCC) ([facility]) documented in this encounter [facility] note* Diagnosis Brittle diabetes (HCC)- Primary Type II or unspecified type diabetes mellitus without mention of complication, not stated as uncontrolled ALLERGIC RHINITIS NOS Allergic rhinitis, cause unspecified Other specified diabetes mellitus with other specified neurological complication Encounter to establish care Other reasons for seeking consultation Gastroesophageal reflux disease without esophagitis Esophageal reflux HYPERLIPIDEMIA NEC/NOS Other and unspecified hyperlipidemia 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- Primary Type I (juvenile type) diabetes mellitus with peripheral circulatory disorders, uncontrolled Non morbid obesity due to excess calories Primary insomnia Persistent disorder of initiating or maintaining sleep 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, macular edema presence unspecified Complication associated with dialysis catheter- Primary Type 1 diabetes mellitus with hyperosmolarity without coma ([facility]) Essential hypertension Unspecified essential hypertension Mixed hyperlipidemia Esophageal stricture Stricture and stenosis of esophagus Anemia in stage 5 chronic kidney disease, not on chronic dialysis (HCC) Chronic kidney disease, stage 5 ([facility]) Dependence on renal dialysis Renal dialysis status Screening for depression Encounter for screening examination for other mental health and behavioral disorders Encounter for immunization Need for other specified prophylactic vaccination against single bacterial disease documented in this encounter [facility] note* Diagnosis Brittle diabetes (HCC)- Primary Type II or unspecified type diabetes mellitus without mention of complication, not stated as uncontrolled ALLERGIC RHINITIS NOS Allergic rhinitis, cause unspecified Other specified diabetes mellitus with other specified neurological complication Encounter to establish care Other reasons for seeking consultation Gastroesophageal reflux disease without esophagitis Esophageal reflux HYPERLIPIDEMIA NEC/NOS Other and unspecified hyperlipidemia 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- Primary Type I (juvenile type) diabetes mellitus with peripheral circulatory disorders, uncontrolled Non morbid obesity due to excess calories Primary insomnia Persistent disorder of initiating or maintaining sleep 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 Kristal Sullivan MD Status:REG E R Location: ED HPI - General General Date of Admission: 07/01/23 Date of Service: 07/01/23 Chief Complaint: Shortness of breath, exertional dyspnea and generalized swelling for about 3 days HPI Narrative LAURIE GONZALES, is a 42 M with history of hypertension type 1 diabetes mellitus and CKD who follows Dr. Diaz came to ED for shortness of breath on exertion, orthopnea, generalized swelling of feet and hand and facial swelling gradually worsening for 3 days. Patient is states he gets short of breath on laying flat but feels better in semierect position. He was diagnosed CKD about 3 to 4 months ago but was doing well until 3 days ago. Denies chest pain pressure or tightness. No fever or chills. In ED his creatinine was found to be high 4.68 with BUN 53 which was significantly higher than his baseline and admitted. Patient pulse ox also drops to 80% on laying down and in the 80s on walking. Vitals labs and imaging reviewed and discussed in detail in assessment plan [facility] Medical History Abscess Charcot foot due to diabetes mellitus Diabetes mellitus type 1 Insulin pump titration Obesity Presence of insulin pump Type 1 diabetes mellitus Home Medications blood sugar diagnostic (FreeStyle Lite Strips) #100 ea 10/08/21 [Rx Last Taken Unknown] blood-glucose meter,continuous (Dexcom G6 Paper Coating Machine Operator) #1 ea 10/08/21 [Rx Last Taken Unknown] lancing device with lancets kit ([employer] Plus Lancing Device kit) #100 ea 11/26/21 [Rx Last Taken Unknown] pen needle, diabetic 32 gauge x 5/32 (BD Ultra-Fine Carol Pen Needle) #150 ea 02/26/22 [Rx Last Taken Unknown] alcohol swabs (BD Alcohol Swabs) 1 pad topical .4 times daily #200 ea 05/20/22 [Rx Last Taken Unknown] insulin aspart U-100 100 unit/mL subcutaneous solution (Novolog U-100 Insulin aspart) 80 unit (0.8 mL) continuous subcutaneous infusion .continuous #72 mL 12/19/22 [Rx Last Taken Unknown] insulin pump cart,automated,BT (Omnipod 5 G6 Pods (Gen 5) subcutaneous cartridge) #30 ea 01/07/23 [Rx Last Taken Unknown] amlodipine 10 mg tablet 10 mg PO DAILY #90 tabs 05/14/23 [Rx Last Taken Unknown] blood-glucose sensor (Dexcom G6 Sensor device) #9 ea 05/14/23 [Rx Last Taken Unknown] blood-glucose transmitter (Dexcom G6 Transmitter device) #1 ea 05/14/23 [Rx Last Taken Unknown] rosuvastatin 10 mg tablet 10 mg PO DAILY #90 tabs 05/14/23 [Rx Last Taken Unknown] metoprolol succinate 25 mg tablet,extended release 24 hr 25 mg PO DAILY #30 tabs05/29/23 [Rx Last Taken Unknown] Allergy/AdvReac Type Severity Reaction Status Date / Time No Known Allergies Allergy Verified 07/01/23 12:53 Family History Other Diabetes Social History Smoking Status: Never smoker alcohol intake: never substance use type: does not use ROS ROS Narrative Constitutional: Reports fatigue and weakness. No fever. HEENT: Reports systems reviewed and no addt'l complaints, except as documented Respiratory/Chest: As described in HPI CVS: No chest pressure or tightness Gastrointestinal: Loss of appetite. Denies coffee ground emesis, hematemesis orvomiting Genitourinary: Denies burning urination or new urinary tract symptoms. Denies oliguria or decrease in frequency of urination Musculoskeletal: Denies acute joint pain or limited range of motion. No acute injury Neurologic: Denies seizure-like symptoms. skin: No ulcer. No rash Endocrinology: Reports systems reviewed and no addt'l complaints, except as documented Hematologic/Lymphatic: Reports systems reviewed and no addt'l complaints, exceptas documented Rest 14 ROS are negative except as mentioned in HPI Vital Signs Vital Signs Vital Signs: 07/01/23 12:53 07/01/23 12:52 07/01/23 13:21 Temperature 97.2 F L Temperature Source Temporal Pulse Rate 98 96 Respiratory Rate 16 16 Respiratory Effort Normal Blood Pressure 178/91 H 174/93 H Blood Pressure Mean 120 120 Pulse Ox 98 99 Oxygen Delivery Method Room Air Room Air Room Air 07/01/23 14:52 07/01/23 16:00 Temperature Temperature Source Pulse Rate 72 94 Respiratory Rate 18 18 Respiratory Effort Blood Pressure 114/63 166/92 H Blood Pressure Mean 80 116 Pulse Ox 92 93 Oxygen Delivery Method Room Air Room Air Weight Weight: 231 lb 0.711 oz Body Mass Index (BMI) 32.2 Physical Exam Narrative General: Alert, Oriented x3, Cooperative HEENT: Atraumatic, PERRLA, EOMI, Normocephalic Oral: No Gingival or Mucosal Lesions/ Ulcerations Neck: Supple, No JVD, Negative Carotid Bruits Chest wall/Lungs: Air entry diminished in bilateral lung bases. No crepitation/rhonchi/wheezing Cardiovascular: Regular rate, Regular Rhythm, Normal S1, Normal S2, No M/G/R Abdomen: Bowel Sounds Present, Soft, Non Tender, Non-Distended : No dysuria. No renal angle tenderness. No suprapubic tenderness. No oliguria/anuria. Extremities: Pitting edema over lower legs, hands and facial puffiness. Capillary Refill Less than 3 Seconds Skin: No rashes, No breakdown Musculoskeletal: No Tenderness to Palpation of Joints or Extremities. ROM intact. Neurological: Cranial nerves II-XII grossly intact, DTR 2+/4. No acute focal neurological deficit. Psych/Mental Status: Normal Affect, Appropriate. Results Lab / Micro Data 07/01/23 13:14 07/01/23 13:14 Labs: Laboratory Results - last 24 hr 07/01/23 13:14: WBC 10.9, RBC 3.64 L, Hgb 9.9 L, Hct 30.0 L, MCV 82.4, MCH 27.2,MCHC 33.0, RDW Std Deviation 40.4, RDW Coeff of Marcella 13.4, Plt Count 329, MPV 9.3, Immature Gran % (Auto) 0.300, Neut % (Auto) 77.8 H, Lymph % (Auto) 11.7 L, Bee % (Auto) 8.3, Eos % (Auto) 1.3, Baso % (Auto) 0.6, Absolute Neuts (auto) 8.5 H, Absolute Lymphs (auto) 1.27, Nucleated RBC % 0, Sodium 135 L, Potassium 4.8, Chloride 108 H, Carbon Dioxide 20.0 L, Anion Gap 7, BUN 53 H, Creatinine 4.68 H, Estim Creat Clear Calc 25.85, Est GFR (MDRD) Af Amer 18 L, Est GFR (MDRD) Non-Af 15 L, BUN/Creatinine Ratio 11.3, Glucose 285 H, Calcium 9.2, Phosphorus 4.2, Magnesium 2.1, Troponin I High Sens 44 Imaging Radiology Impression Chest X-Ray 07/01/23 13:30 IMPRESSION: Findings suggestive of mild degree of CHF with bibasilar atelectasis. Electronically Signed: Neeraj Brown MD at 13:41 EDT , Assessment & Plan Assessment/Plan (1) Dyspnea on exertion: (2) CKD (chronic kidney disease): QUALIFIERS: Chronic kidney disease stage: stage 3 (moderate) Chronic kidney disease stage 3 subtype: stage 3a (GFR 45-59) Qualified Code(s):N18.31 - Chronic kidney disease, stage 3a (3) Acute kidney injury: PLAN: Plan This is a 42-year-old gentleman being admitted to for evaluation of dyspnea on exertion/orthopnea and ANN on CKD 1. 1. Exertional dyspnea/orthopnea, clinical diagnosis of CHF exacerbation: Patient is being admitted in PCU. Chest x-ray portable individually reviewed and shows increased interstitial edema/vascular congestion and bibasilar atelectasis. Blunting of bilateral CP angles. No prior echo in our system. Patient is started on diuretic furosemide 40 mg twice daily and titrate accordingly. 2D echo ordered. Heart failure core measures including intake andoutput, fluid restriction less than 1500 mL, daily weight monitoring, kidney andelectrolytes monitoring. 2. ANN on CKD stage 4: Patient creatinine has been elevated in the past intermittently going back in 2014 consistent with ANN. Recently last normal wasin March?August 2018, 0.99?1.3 but since November 2021 it is elevated 1.35 and progressively getting worse to current 4.68. BUN 53 with BUN/creatinine ratio 11.3 suggestive it is not prerenal/fluid deficient. Started on diuretic. Patient denies history of urine retention or obstruction. Last CT abdomen in November 2019 which shows normal retroperitoneum and kidneys. Normal urinary bladder. Kidneys and bladder ultrasound ordered. Missile Facilities Repairer consulted 3. 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 On insulin pump. If insulin pump functional use patient's insulin pump otherwise intermittent subcutaneous insulin injection with Accu-Cheks before meals and at bedtime and cover with milk sliding scale. 4. Hypertension: Blood pressure is uncontrolled in ED. Monitor BP and adjust antihypertensive medications. 5. Chronic anemia: Hemoglobin 9.9/30%. Platelet count normal DVT prophylaxis moderate risk: Heparin 5000 units subcutaneous every 12 hourly. Living will/advanced directive/end of life care: Patient does not have living will or advanced directive. Patient does not have dilated power of auto collision repair instructor [facility] after discussion of benefits/risks procedures involved with full code, DNR CC arrest and DNR CC, the patient opted for full code. Patient does want artificial life support including intubation, tube feed, ventilator and/chest compression, central venous catheter, vasopressor and DC shock if needed Total time spent in [id number] encounter in discussion of advanced directive 17 minutes. Laboratory Results 07/01/23 13:14: WBC 10.9, RBC 3.64 L, Hgb 9.9 L, Hct 30.0 L, MCV 82.4, MCH 27.2,MCHC 33.0, RDW Std Deviation 40.4, RDW Coeff of Marcella 13.4, Plt Count 329, MPV 9.3, Immature Gran % (Auto) 0.300, Neut % (Auto) 77.8 H, Lymph % (Auto) 11.7 L, Bee % (Auto) 8.3, Eos % (Auto) 1.3, Baso % (Auto) 0.6, Absolute Neuts (auto) 8.5 H, Absolute Lymphs (auto) 1.27, Nucleated RBC % 0, Sodium 135 L, Potassium 4.8, Chloride 108 H, Carbon Dioxide 20.0 L, Anion Gap 7,BUN 53 H, Creatinine 4.68 H, Estim Creat Clear Calc 25.85, Est GFR (MDRD) Af Amer 18 L, Est GFR (MDRD) Non-Af 15 L, BUN/Creatinine Ratio 11.3, Glucose 285 H,Calcium 9.2, Phosphorus 4.2, Magnesium 2.1, Troponin I High Sens 44 Clinical Impression(s) from Imaging Studies Chest X-Ray 07/01/23 13:30 IMPRESSION: Findings suggestive of mild degree of CHF with bibasilar atelectasis. Electronically Signed: Neeraj Brown MD at 13:41 EDT Reading Location ID and State: [address] [place] [address] , Service support , Charges/Coding Visit Charges Inpatient E&M: 39739 Init Hosp L3 Procedures Hospitalists Procedures: 43571 Advncd Care Plan 30 Min 07/01/23 1830 <Electronically signed by Louis Koehler MD> Cosigner Signature (if applicable): CC: Dr. Kristal Sullivan MD; Dr. Louis Koehler MD~ Signed [facility] Work Phone: History and physical note Author Bao Friend [facility] Note Date/Time August 31, 2024 11:06 am [facility] Medical Records Department [address] [place] [address] [place] [address] History & Physical Exam 08/31/24 1105 MR#: [id number] Acct: [id number] Name: LAURIE GONZALES Rep #:[id number] : 1980 44 From: Bao Angulo DO PCP: Dr. Kristal Sullivan MD Status:REG S DC Location: [place] [address] HPI - General General Date of Admission: 08/31/24 Date of Service: 08/31/24 Chief Complaint: dysphagia HPI Narrative LAURIE GONZALES, is a 44 M who presentsChief Complaint: pain with swallowing HD - M/W/F - renal failure due to DM and HTN - 1st episode was after HD a week ago for crushing chest pain and intractable emesis - Friday when to ED for crushing chest pain - ACS ruled out and treated with phenergan and GI coktail - reports symptoms resolved during admission - ate a cheeseburger before discharge without issue - the day following admission he developed - water going down ok - unable to take fluid off in HD due to dry weight is too low - liquids and solids - HB - intermittent PFSH Medical History Bloodstream infection Hypertension High cholesterol Restless legs Difficulty swallowing History of stress test Elevated troponin Insulin dependent diabetes mellitus History of renal dialysis History of renal disease Back pain Injury of back Dietary restriction Gastric reflux Non-smoker Leg cramps Cardiology follow-up encounter History of echocardiogram History of heart attack Acute non-ST elevation myocardial infarction (NSTEMI) CKD (chronic kidney disease), stage V Congestive heart failure of unknown etiology Overweight (BMI 25.0-29.9) NSTEMI, initial episode of care Acute kidney injury superimposed on chronic kidney disease Elevated troponin Pre-op testing ESRF (end stage renal failure) Stage 4 chronic kidney disease Diabetes mellitus type 1 Insulin pump titration Presence of insulin pump CKD (chronic kidney disease) Hypertension Charcot foot due to diabetes mellitus Home Medications ?Medication ?Instructions ?Recorded ?Last Taken ?Type blood sugar diagnostic (FreeStyle #100 ea 10/08/21 Unk nown Rx Lite Strips) lancing device with lancets kit #100 ea 11/26/21 Unkno wn Rx ([employer] Plus Lancing Device kit) pen needle, diabetic 32 gauge x #150 ea 02/26/22 Unkno wn Rx (BD Ultra-Fine Carol Pen Needle) aspirin 81 mg tablet,delayed 81 mg PO BREAKFAST #90 ta bs 02/25/24 08/30/24 Rx release clopidogrel 75 mg tablet 75 mg PO DAILY #90 tabs 01/3008/30/24 Rx metoprolol succinate 25 mg 25 mg PO DAILY #90 tabs 08/10/24 Rx tablet,extended release 24 hr rosuvastatin 10 mg tablet 10 mg PO DAILY #90 tabs 01/3008/10/24 Rx insulin syringe-needle U-100 0.3 #100 ea 03/30/24 Unkn own Rx mL 31 gauge x 5/16 (BD Insulin Syringe Ultra-Fine) pen needle, diabetic 32 gauge x #50 ea 03/30/24 Unknow n Rx (BD Ultra-Fine Carol Pen Needle) blood-glucose,grain merchandising manager,cont #1 ea 04/01/24 Unknown Rx (Dexcom G6 Paper Coating Machine Operator) insulin pump cart,auto,BT,G6/7 #30 ea 04/01/24 Unknown Rx (Omnipod 5 G6-G7 Pods (Gen 5) subcutaneous cartridge) sevelamer carbonate 800 mg tablet 800 mg PO DAILY 05/3008/10/24 History blood-glucose sensor (Dexcom G6 #9 ea 07/23/24 Unknown Rx Sensor device) blood-glucose transmitter (Dexcom #1 ea 07/23/24 Unkno wn Rx G6 Transmitter device) cholecalciferol (vitamin D3) 50 150 mcg PO MOWEFR 07/0108/09/24 History mcg (2,000 unit) capsule loratadine 5 mg-pseudoephedrine ER 1 tab PO Q12H PRN s inus symptoms 08/05/24 Unknown History 120 mg tablet,extended release,12hr (Claritin-D 12 Hour) amlodipine 5 mg tablet 10 mg (2 x 5 mg) PO DAILY #9 0 tabs 08/11/24 08/10/24 Rx pantoprazole 40 mg tablet,delayed 40 mg PO QDAY #90 ta bs 08/17/24 Unknown Rx release sucralfate 100 mg/mL oral 10 ml PO QACHS #1,200 mL Unknown Rx suspension (Carafate) insulin aspart U-100 100 unit/mL 80 unit (0.8 mL) cont inuous 08/20/24 Unknown Rx subcutaneous solution (Novolog subcutaneous infusion . continuous U-100 Insulin aspart) #72 mL Allergy/AdvReac Type Severity Reaction Status Date / Time No Known Allergies Allergy Verified 08/31/24 10:36 Family History Mother Diabetes Thyroid disorder Grandmother Diabetes Grandfather Diabetes Surgical History Hx of surgical procedure History of cardiac catheterization Hx of surgical procedure History of coronary artery stent placement History of surgery on lower extremity Social History Smoking Status: Never smoker alcohol intake: never substance use type: does not use ROS Constitutional Constitutional: Denies fatigue, fever(s), poor appetite, weight gain or weight loss Gastrointestinal Gastrointestinal: Denies belching, bloating, change in bowel habits, change in stool character, chewing difficulty, coffee ground emesis, constipation, cramping, diarrhea, dyspepsia, dysphagia, early satiety, excessive flatus, fecalincontinence, heartburn, hematemesis, hematochezia, hemorrhoids, loose stools, melena, nausea, odynophagia, rectal bleeding, tenesmus, vomiting or weight changes Vital Signs Vital Signs Vital Signs: 08/31/24 10:38 08/31/24 10:38 08/31/24 11:04 Temperature 97.9 F 97.9 F Temperature Source Temporal Pulse Rate 85 85 Respiratory Rate 16 16 Respiratory Pattern Normal Blood Pressure 156/92 H 156/92 H Blood Pressure Mean 113 Blood Pressure Source Monitor Blood Pressure Position Semi-Fowlers Blood Pressure Location Right Arm Pulse Ox 100 100 Oxygen Delivery Method Room Air Room Air Weight Weight: 194 lb 0.108 oz Body Mass Index (BMI) 27.0 Physical Exam Const alert, oriented x3, no apparent distress and healthy appearing General Appearance: cooperative GI normal to inspection, nondistended, normoactive bowel sounds, soft to palpation,non-tender and non-distended Percussion: normal to percussion Rectal Exam: deferred Assessment & Plan Assessment/Plan (1) Dysphagia: (2) Odynophagia: PLAN: Assessment and Plan Assessment and Plan (1) Dysphagia: Status: Acute (2) Odynophagia: Status: Acute Orders: Orders Esophagus Dual Contrast Today R13.10 - Dysphagia, unspecified Medications: New sucralfate (Carafate) 10 mL PO QACHS 1,200 mL 1RF pantoprazole take once every morning on an empty stomach 40 mg PO QDAY 90 tabs 1RF Plan 44-year-old male presents for initial consultation with complaints of dysphagia and odynophagia. Symptoms began 1 week ago post dialysis with crushing chest pain and intractable emesis. He presented to the emergency department the following day with ongoing symptoms, ACS ruled out and symptoms resolved with Phenergan and GI cocktail. He reports he was able to eat a burger prior to discharge without issue. 1 day following discharge he developed sudden onset dysphagia and odynophagia in the upper mid esophagus with liquids and solids. He reports a 10 to 20 pound weight loss in the past week, and is running even ondialysis. I have started him on a daily PPI and sucralfate. I have also ordered an esophagram and EGD. He will follow-up in the office post procedures. He takes Plavix and will require approval to hold prior to EGD. Note: [email or web address] speech recognition audiovisual production specialist software was used to create portions of this document. Sound-alike and misspelled words, as well as other audiovisual production specialist errors may be contained in the documentation. Patient Instructions: Esophagram EGD 08/31/24 1106 <Electronically signed by Bao Angulo DO> Cosigner Signature (if applicable): CC: Dr. Kristal Sullivan MD; Boa Angulo DO~ Signed [facility] Work Phone: Hospital Discharge instructions No data available for this section [facility] Discharge instructions* Attachments The following attachments cannot be sent through Care Everywhere. * Hemodialysis (Dutch) * Fever, [facility] ED ([facility] No data available for this section [facility] note Author Kalina Payne [facility] Note Date/Time September 07, 2024 1:38 pm [facility] [address] [place] [address] OFFICE VISIT Date of Service: 09/07/24 MR#: [id number] Acct: [id number] Name: LAURIE GONZALES Rep #: [id number] : 1980 Provider: RAVINDER Payne Age/Sex: 44/M Location: [facility] Status: Signed Intake Vital Signs 08/17/24 14:47 08/31/24 15:09 09/07/24 13:18 Height 5 ft 11 in 5 ft 11 in 5 ft 11 in Weight: 196 lb 196 lb BMI 27.3 27.3 BP 136/92 H 133/84 H Blood Pressure Location Rt brachial Position Sitting Respiration 18 16 Pulse 88 81 Pulse Source Monitor Pulse Oximetry (%) 97 98 Oxygen Delivery Method room air Intake Visit Reasons: 1 Month f/u Chief Complaint: f/u diabetes Clamper Required: No Accompanied by: self Is patient in pain?: No Allergies No Known Allergies Allergy (Verified 09/07/24 13:08) Medications ?Medication ?Instructions ?Recorded ?Confirmed ?Type blood sugar diagnostic (FreeStyle #100 ea 10/08/2101/22 Rx Lite Strips) lancing device with lancets kit #100 ea 11/26/2109/07 Rx ([employer] Plus Lancing Device kit) pen needle, diabetic 32 gauge x #150 ea 02/26/2209/07 Rx 5/32 (BD Ultra-Fine Carol Pen Needle) aspirin 81 mg tablet,delayed 81 mg PO BREAKFAST #90 ta bs 02/25/24 09/07/24 Rx release clopidogrel 75 mg tablet 75 mg PO DAILY #90 tabs 01/3009/07/24 Rx rosuvastatin 10 mg tablet 10 mg PO DAILY #90 tabs 01/3009/07/24 Rx insulin syringe-needle U-100 0.3 #100 ea 03/30/2408/29 0 Rx mL 31 gauge x 5/16 (BD Insulin Syringe Ultra-Fine) pen needle, diabetic 32 gauge x #50 ea 03/30/24 Rx 5/32 (BD Ultra-Fine Carol Pen Needle) blood-glucose,grain merchandising manager,cont #1 ea 04/01/24 09/07/24 Rx (Dexcom G6 Paper Coating Machine Operator) insulin pump cart,auto,BT,G6/7 #30 ea 04/01/24 5 Rx (Omnipod 5 G6-G7 Pods (Gen 5) subcutaneous cartridge) sevelamer carbonate 800 mg tablet 800 mg PO DAILY 05/3009/07/24 History blood-glucose sensor (Dexcom G6 #9 ea 07/23/24 5 Rx Sensor device) blood-glucose transmitter (Dexcom #1 ea 07/23/2409/07 Rx G6 Transmitter device) cholecalciferol (vitamin D3) 50 150 mcg PO MOWEFR 07/0109/07/24 History mcg (2,000 unit) capsule loratadine 5 mg-pseudoephedrine ER 1 tab PO Q12H PRN s inus symptoms 08/05/24 09/07/24 History 120 mg tablet,extended release,12hr (Claritin-D 12 Hour) amlodipine 5 mg tablet 10 mg (2 x 5 mg) PO DAILY #9 0 tabs 08/11/24 09/07/24 Rx insulin aspart U-100 100 unit/mL 80 unit (0.8 mL) cont inuous 08/20/24 09/07/24 Rx subcutaneous solution (Novolog subcutaneous infusion . continuous U-100 Insulin aspart) #72 mL carvedilol 25 mg tablet 25 mg PO QDAY 09/07/2409/07 History pantoprazole 40 mg tablet,delayed 40 mg PO BID #180 ta bs 09/07/24 09/07/24 Rx release PFSH Medical History Bloodstream infection Hypertension High cholesterol Restless legs Difficulty swallowing History of stress test Elevated troponin Insulin dependent diabetes mellitus History of renal dialysis History of renal disease Back pain Injury of back Dietary restriction Gastric reflux Non-smoker Leg cramps Cardiology follow-up encounter History of echocardiogram History of heart attack Acute non-ST elevation myocardial infarction (NSTEMI) CKD (chronic kidney disease), stage V Congestive heart failure of unknown etiology Overweight (BMI 25.0-29.9) NSTEMI, initial episode of care Acute kidney injury superimposed on chronic kidney disease Elevated troponin Pre-op testing ESRF (end stage renal failure) Stage 4 chronic kidney disease Diabetes mellitus type 1 Insulin pump titration Presence of insulin pump CKD (chronic kidney disease) Hypertension Charcot foot due to diabetes mellitus Surgical History Hx of surgical procedure History of cardiac catheterization Hx of surgical procedure History of coronary artery stent placement History of surgery on lower extremity Family History Mother Diabetes Thyroid disorder Grandmother Diabetes Grandfather Diabetes Social History Smoking Status: Never smoker alcohol intake: never substance use type: does not use HPI HPI Chief Complaint: f/u diabetes Details: LAURIE GONZALES, is a 44 M who presents to the office today for OV 08/17/2024 44-year-old male presents for initial consultation with complaints of dysphagia and odynophagia. Symptoms began 1 week ago post dialysis with crushing chest pain and intractable emesis. He presented to the emergency department the following day with ongoing symptoms, ACS ruled out and symptoms resolved with Phenergan and GI cocktail. He reports he was able to eat a burger prior to discharge without issue. 1 day following discharge he developed sudden onset dysphagia and odynophagia in the upper mid esophagus with liquids and solids. He reports a 10 to 20 pound weight loss in the past week, and is running even ondialysis. I have started him on a daily PPI and sucralfate. I have also ordered an esophagram and EGD. He will follow-up in the office post procedures. He takes Plavix and will require approval to hold prior to EGD. EGD 08/31/2024 Dilation was performed with a Savary dilator with no resistance at 60 Fr. - LA Grade C reflux esophagitis with no bleeding. Biopsied. Dilated. - No gross lesions in the stomach. - Erythematous duodenopathy. Esophagus, distal, biopsy: Squamous mucosa with reactive changes. Detached fragment of fibrinopurulent debris, suggestive of ulcer. Columnar mucosa, negative for goblet cell metaplasia PASD is negative for fungal organisms HSV and CMV negative ROS Const Constitutional: No fatigue, fever(s) or weight change ENT ENT: No difficulty swallowing Gastro GI: No abdominal pain, belching, bloating, change in bowel habits, change in stool character, coffee ground emesis, constipation, cramping, diarrhea, heartburn, difficulty swallowing, feeling full early, excessive flatus, incontinent of stools, Vomiting blood/hematemesis, Blood in stool, loose stools,Black,tarry stools, nausea/dyspepsia, pain with swallowing, vomiting or other Musc Musculoskeletal: Positive for back pain, muscle cramps, muscle weakness and restless legs; No joint pain Skin Skin: Positive for dry skin; No yellowing of the eye or itchy eyes Neuro Neurology: Positive for restless legs Psych Psychiatric: No anxiety and No depression Endo Endocrine: No fatigue or weight change Aller/Imm Allergy/Immunologic: No itchy eyes Mc/Lymp Hematologic/Lymphatic: No easy bleeding or easy bruising Exam Const General: cooperative, healthy appearing, no acute distress and well developed Nutritional Appearance: average body habitus and well nourished Orientation: alert and oriented x3 HENMT Head: normocephalic Ears: hearing grossly normal bilaterally Mouth: moist mucous membranes Teeth and gingiva: dentition normal Eyes Conjunctivae: conjunctivae normal Sclera: sclerae normal Neck Neck: normal visual inspection, full ROM and trachea midline Resp Effort & Inspection: normal respiratory effort, able to speak in complete sentences and symmetric chest movement Neuro General: patient alert and patient oriented x3 Cranial Nerves: other (CN's grossly intact, non-focal exam) Cognition: normal cognition Speech: speech normal Gait: normal gait Psych Appearance: grossly normal and well kempt Affect: normal affect Attitude: cooperative Thought Process: normal Assessment and Plan Assessment and Plan (1) Erosive esophagitis: Status: Acute Medications: New pantoprazole take 30 minutes before breakfast and dinner 40 mg PO BID 180 tabs 1RF Discontinued pantoprazole take once every morning on an empty stomach Discontinued Reason: Order Changed 40 mg PO QDAY 90 tabs 1RF Plan 44y/o male presents for follow-up of dysphagia/odynophagia. EGD with dilation was performed 08/31/2024, revealed Grade C esophagitis; biopsies negative for Michelle's, candidia, HSV and CMV. He reports resolution of symptoms with dilation and discontinued sucralfate. I have increased PPI to BID x8 weeks and we will repeat EGD. Note: [email or web address] speech recognition audiovisual production specialist software was used to create portions of this document. Sound-alike and misspelled words, as well as other audiovisual production specialist errors may be contained in the documentation. Patient Instructions: Increase pantoprazole to 40mg BID x8 weeks Repeat EGD in 8 weeks With mucosal healing will plan to decrease PPI to once daily Coding Level of Care Code Off vis,est,level 4 Diagnoses Erosive esophagitis K22.10 Clinical Quality Measures Smoking Screening Smoking Status: Never smoker 09/07/24 1338 <Electronically signed by Kalina CASTELLON> Date _ Kalina CASTELLON Cosigner Signature: Date (if applicable) CC: ~ [employer] Work Phone: ReTHU[facility] for referral (narrative)* Diagnostic Procedure Only (Routine) - Pending Review Specialty Diagnoses / Procedures Referred By Contac t Referred To Contact MOLECULAR & FUNCTIONAL IMAGING Diagnoses Encounter for other preprocedural examination Procedures NM CARDIAC PERF STRESS/PHARM MYOCARDIAL SPECT MULTIPLE STUDIES Ronen Eldridge MD [address] [place] [address] Molecular & Functional Imaging [address] [place] [address] Referral ID Status Reason Start Date Expiration Date Visits Requested Visits Authorized [id number] Pending Review Auto-Generat ed Referral 08/28/2023 09/26/2024 1 1 T [facility] for referral (narrative)* Diagnostic Procedure Only (Routine) - Pending Review Specialty Diagnoses / Procedures Referred By Contac t Referred To Contact MOLECULAR & FUNCTIONAL IMAGING Diagnoses Encounter for other preprocedural examination Procedures NM CARDIAC PERF STRESS/PHARM MYOCARDIAL SPECT MULTIPLE STUDIES Ronen Eldridge MD [address] [id number] Molecular & Functional Imaging [address] [id number] Referral ID Status Reason Start Date Expiration Date Visits Requested Visits Authorized [id number] Pending Review Auto-Genera sharan Referral Patient Cleared - Admin/Chair man/Directo r advise to proceed or did not respond 4 03/11/2025 3 3 [facility] for referral (narrative)No reason for referral information available[facility] Work Phone: Reason for visit Narrative* Diagnostic Procedure Only (Routine) - Pending Review Specialty Diagnoses / Procedures Referred By Erika rodriguez Referred To Contact MOLECULAR & FUNCTIONAL IMAGING Diagnoses Encounter for other preprocedural examination Procedures NM CARDIAC PERF STRESS/PHARM MYOCARDIAL SPECT MULTIPLE STUDIES Ronen Eldridge MD [address] [place] [address] Molecular & Functional Imaging [address] [place] [address] Referral ID Status Reason Start Date Expiration Date Visits Requested Visits Authorized [id number] Pending Review Auto-Genera sharan Referral Patient Cleared - Admin/Chair man/Directo r advise to proceed or did not respond 4 03/11/2025 3 3 [facility] for visit Narrative* Auth/Cert (Routine) Specialty Diagnoses / Procedures Referred By Erika rodriguez Referred To Contact Diagnoses History of myocardial infarction sepsis Procedures . Maria Luz Trujillo MD [address] [address] Phone: tel: fax: [facility] [address] [place] [address] Phone: tel: Referral ID Status Reason Start Date Expiration Date Visits Re quested Visits Authorized [id number] 1 1 [facility] Chief Complaint and Reason for Visit Chief Complaint 2 M FU-90m per Dr. Agatha muhammad 1 M FU Reason for Visit CKD (chronic kidney disease) Diabetes Hypertension Obesity Chief Complaint 3 M FU swollen eyes, back pain, disoriented Reason for Visit Diabetes Hypertension Microalbuminuria Obesity Vitamin D deficiency Chief Complaint ear 5 M FU, NS 03/27 E-ORDER Reason for Visit Diabetes mellitus ty pe 1 Hyperlipidemia Hypertension Insulin pump titration Microalbuminuria Obesity Presence of insulin pump Stage 4 chronic kidney disease Chief Complaint ear 5 M FU, NS 03/27 E-ORDER NEED ORDER DYSPNEA ON EXERTION, ORTHOPNEA, ANN ON CKD Shortness of breath Reason for Visit Diabetes mellitus ty pe 1 Hyperlipidemia Hypertension Insulin pump titration Microalbuminuria Obesity Presence of insulin pump Stage 4 chronic kidney disease Acute kidney injury Dyspnea on exertion Volume overload CKD (chronic kidney disease) Diabetes mellitus type 1 Hypertension Obesity Chief Complaint ear 5 M FU, NS 03/27 E-ORDER NEED ORDER DYSPNEA ON EXERTION, ORTHOPNEA, ANN ON CKD Shortness of breath DYSPNEA ON EXERTION, ORTHOPNEA, ANN ON CKD DYSPNEA ON EXERTION, ORTHOPNEA, ANN ON CKD Reason for Visit Diabetes mellitus ty pe 1 Hyperlipidemia Hypertension Insulin pump titration Microalbuminuria Obesity Presence of insulin pump Stage 4 chronic kidney disease Acute kidney injury Dyspnea on exertion Volume overload CKD (chronic kidney disease) Diabetes mellitus type 1 Hypertension Obesity Stage 4 chronic kidney disease Chief Complaint ear 5 M FU, NS 03/27 E-ORDER NEED ORDER DYSPNEA ON EXERTION, ORTHOPNEA, ANN ON CKD Shortness of breath DYSPNEA ON EXERTION, ORTHOPNEA, ANN ON CKD DYSPNEA ON EXERTION, ORTHOPNEA, ANN ON CKD Reason for Visit Hyperlipidemia Insulin pump titration Microalbuminuria Presence of insulin pump Dyspnea on exertion Volume overload Chief Complaint ear 5 M FU, NS 03/27 E-ORDER NEED ORDER DYSPNEA ON EXERTION, ORTHOPNEA, ANN ON CKD Shortness of breath DYSPNEA ON EXERTION, ORTHOPNEA, ANN ON CKD DYSPNEA ON EXERTION, ORTHOPNEA, ANN ON CKD PD CATH End stage renal disease Left Forearm Radio Left Forearm Radio Reason for Visit Hyperlipidemia Insulin pump titration Microalbuminuria Presence of insulin pump CKD (chronic kidney disease) Dyspnea on exertion Volume overload CKD (chronic kidney disease) Chief Complaint 5 M FU, NS 03/27 E-ORDER NEED ORDER DYSPNEA ON EXERTION, ORTHOPNEA, ANN ON CKD Shortness of breath DYSPNEA ON EXERTION, ORTHOPNEA, ANN ON CKD DYSPNEA ON EXERTION, ORTHOPNEA, ANN ON CKD PD CATH End stage renal disease Left Forearm Radio Left Forearm Radio Reason for Visit Hyperlipidemia Insulin pump titration Microalbuminuria Presence of insulin pump CKD (chronic kidney disease) Dyspnea on exertion Volume overload CKD (chronic kidney disease) Chief Complaint Admit Date S/P [facility] 01/30February 25, 2024 9:03am 5 M FU, CX 01/27, NS 02/15 10:19am MAPPING FOR PERMANENT DIALYSIS VASCULAR ACCESS March 16, 2024 12:35pm HYPOGLYCEMIC April 20, 2024 1 0:22am Dialysis Access April 23, 2024 8 :10am End stage renal disease June 10, 2024 12:54pm Discuss AV Fistula Dialysis Graft Scan M arch 2024 11:17am Reason for Visit Admit Date Decreased pedal pulses February 24 9:03am History of coronary artery stent placeme nt February 25, 2024 9:03am Hyperlipidemia February 25, 2024 9:03am Hypertension February 25, 2024 9:03am DM type 1 (diabetes mellitus, type 1) No vember 2023 10:19am Hyperlipidemia February 25, 2024 10:19am Hypertension February 25, 2024 10:19am Insulin pump titration February 24 10:19am Presence of insulin pump February 25, 2024 10:19am Vitamin D deficiency February 25, 2024 10:19am AV fistula April 23, 2024 8 :10am ESRD (end stage renal disease) on dialys is April 23, 2024 8:10am Malfunction of arteriovenous dialysis fi [facility] June 18, 2024 11:17am Chief Complaint Admit Date MAPPING FOR PERMANENT DIALYSIS VASCULAR ACCESS March 16, 2024 12:35pm HYPOGLYCEMIC April 20, 2024 1 0:22am Dialysis Access April 23, 2024 8 :10am End stage renal disease June 10, 2024 12:54pm Discuss AV Fistula Dialysis Graft Scan [facility] 2024 11:17am LEFT FOREARM T82.590A July 07, 2024 6: 52am Reason for Visit Admit Date AV fistula April 23, 2024 8 :10am ESRD (end stage renal disease) on dialys is April 23, 2024 8:10am Malfunction of arteriovenous dialysis fi stula June 18, 2024 11:17am Chief Complaint Admit Date HYPOGLYCEMIC April 20, 2024 1 0:22am Dialysis Access April 23, 2024 8 :10am End stage renal disease June 10, 2024 12:54pm Discuss AV Fistula Dialysis Graft Scan [facility] 2024 11:17am LEFT FOREARM T82.590A July 07, 2024 6: 52am LEFT FOREARM T82.590A July 07, 2024 6: 54pm left Fistula Arteriovenous Ligation Apri l 2024 12:48pm left Fistula Arteriovenous Ligation Apri l 2024 3:55pm Chief Complaint Admit Date HYPOGLYCEMIC April 20, 2024 1 0:22am Dialysis Access April 23, 2024 8 :10am End stage renal disease June 10, 2024 12:54pm Discuss AV Fistula Dialysis Graft Scan [facility] 2024 11:17am LEFT FOREARM T82.590A July 07, 2024 6: 52am LEFT FOREARM T82.590A July 07, 2024 6: 54pm left Fistula Arteriovenous Ligation Apri l 2024 12:48pm left Fistula Arteriovenous Ligation Apri l 2024 3:55pm 5 M FU July 28, 2024 10: 36am Post Fistula Ligation 2-4 WK FU August 05, 2024 10:47am CP August 10, 2024 11:59 pm Reason for Visit Admit Date AV fistula April 23, 2024 8 :10am ESRD (end stage renal disease) on dialys is April 23, 2024 8:10am Malfunction of arteriovenous dialysis fi stula June 18, 2024 11:17am DM type 1 (diabetes mellitus, type 1) Ap ril 2024 10:36am Hyperlipidemia July 28, 2024 10: 36am Hypertension July 28, 2024 10: 36am Insulin pump titration July 28, 2024 10:36am Overweight July 28, 2024 10: 36am Presence of insulin pump July 28 10:36am Vitamin D deficiency July 28, 2024 10 :36am AV fistula August 05, 2024 10:47a m Chief Complaint Admit Date HYPOGLYCEMIC April 20, 2024 1 0:22am Dialysis Access April 23, 2024 8 :10am End stage renal disease June 10, 2024 12:54pm Discuss AV Fistula Dialysis Graft Scan [facility] 2024 11:17am LEFT FOREARM T82.590A July 07, 2024 6: 52am LEFT FOREARM T82.590A July 07, 2024 6: 54pm left Fistula Arteriovenous Ligation Apri l 2024 12:48pm left Fistula Arteriovenous Ligation Apri l 2024 3:55pm 5 M FU July 28, 2024 10: 36am Post Fistula Ligation 2-4 WK FU August 05, 2024 10:47am CHEST PAIN August 10, 2024 11:09 pm CHEST PAIN August 11, 2024 12:43 pm CHEST PAIN August 11, 2024 2:40p m Reason for Visit Admit Date AV fistula April 23, 2024 8 :10am ESRD (end stage renal disease) on dialys is April 23, 2024 8:10am Malfunction of arteriovenous dialysis fi stula June 18, 2024 11:17am DM type 1 (diabetes mellitus, type 1) Ap ril 2024 10:36am Hyperlipidemia July 28, 2024 10: 36am Hypertension July 28, 2024 10: 36am Insulin pump titration July 28, 2024 10:36am Overweight July 28, 2024 10: 36am Presence of insulin pump July 28 10:36am Vitamin D deficiency July 28, 2024 10 :36am AV fistula August 05, 2024 10:47a m Chest pain August 10, 2024 11:09 pm Dyspepsia August 10, 2024 11:09 pm Elevated troponin August 10, 2024 11:09 pm Chief Complaint Admit Date HYPOGLYCEMIC April 20, 2024 1 0:22am Dialysis Access April 23, 2024 8 :10am End stage renal disease June 10, 2024 12:54pm Discuss AV Fistula Dialysis Graft Scan M 2024 11:17am LEFT FOREARM T82.590A July 07, 2024 6: 52am LEFT FOREARM T82.590A July 07, 2024 6: 54pm left Fistula Arteriovenous Ligation Apri l 2024 12:48pm left Fistula Arteriovenous Ligation Apri l 2024 3:55pm 5 M FU July 28, 2024 10: 36am Post Fistula Ligation 2-4 WK FU August 05, 2024 10:47am CHEST PAIN August 10, 2024 11:09 pm CHEST PAIN August 11, 2024 12:43 pm CHEST PAIN August 11, 2024 2:40p m SWALLOWED FOOD GETS STUCK August 17, 2024 2:27pm Reason for Visit Admit Date AV fistula April 23, 2024 8 :10am ESRD (end stage renal disease) on dialys is April 23, 2024 8:10am Malfunction of arteriovenous dialysis fi stula June 18, 2024 11:17am DM type 1 (diabetes mellitus, type 1) Ap ril 2024 10:36am Hyperlipidemia July 28, 2024 10: 36am Hypertension July 28, 2024 10: 36am Insulin pump titration July 28, 2024 10:36am Overweight July 28, 2024 10: 36am Presence of insulin pump July 28 10:36am Vitamin D deficiency July 28, 2024 10 :36am AV fistula August 05, 2024 10:47a m ESRD (end stage renal disease) on dialys is August 10, 2024 11:09pm Chest pain August 10, 2024 11:09 pm Dyspepsia August 10, 2024 11:09 pm Elevated troponin August 10, 2024 11:09 pm Dysphagia August 17, 2024 2:27p m Odynophagia August 17, 2024 2:27p m Chief Complaint Admit Date End stage renal disease June 10, 2024 12:54pm Discuss AV Fistula Dialysis Graft Scan M arch 2024 11:17am LEFT FOREARM T82.590A July 07, 2024 6: 52am LEFT FOREARM T82.590A July 07, 2024 6: 54pm left Fistula Arteriovenous Ligation Apri l 2024 12:48pm left Fistula Arteriovenous Ligation Apri l 2024 3:55pm 5 M FU July 28, 2024 10: 36am Post Fistula Ligation 2-4 WK FU August 05, 2024 10:47am CHEST PAIN August 10, 2024 11:09 pm CHEST PAIN August 11, 2024 12:43 pm CHEST PAIN August 11, 2024 2:40p m SWALLOWED FOOD GETS STUCK August 17, 2024 2:27pm Arteriovenous fistula, acquired July 10:01am fever August 23, 2024 12:29 am Reason for Visit Admit Date Malfunction of arteriovenous dialysis fi stula June 18, 2024 11:17am DM type 1 (diabetes mellitus, type 1) Ap ril 2024 10:36am Hyperlipidemia July 28, 2024 10: 36am Hypertension July 28, 2024 10: 36am Insulin pump titration July 28, 2024 10:36am Overweight July 28, 2024 10: 36am Presence of insulin pump July 28 10:36am Vitamin D deficiency July 28, 2024 10 :36am AV fistula August 05, 2024 10:47a m ESRD (end stage renal disease) on dialys is August 10, 2024 11:09pm Chest pain August 10, 2024 11:09 pm Dyspepsia August 10, 2024 11:09 pm Elevated troponin August 10, 2024 11:09 pm Dysphagia August 17, 2024 2:27p m Odynophagia August 17, 2024 2:27p m Chief Complaint Admit Date End stage renal disease June 10, 2024 12:54pm Discuss AV Fistula Dialysis Graft Scan M arch 2024 11:17am LEFT FOREARM T82.590A July 07, 2024 6: 52am LEFT FOREARM T82.590A July 07, 2024 6: 54pm left Fistula Arteriovenous Ligation Apri l 2024 12:48pm left Fistula Arteriovenous Ligation Apri l 2024 3:55pm 5 M FU July 28, 2024 10: 36am Post Fistula Ligation 2-4 WK FU August 05, 2024 10:47am CHEST PAIN August 10, 2024 11:09 pm CHEST PAIN August 11, 2024 12:43 pm CHEST PAIN August 11, 2024 2:40p m SWALLOWED FOOD GETS STUCK August 17, 2024 2:27pm Arteriovenous fistula, acquired July 10:01am fever August 23, 2024 12:29 am 2 M FU August 31, 2024 3:01p m 1 Month f/u September 07, 2024 12:4 4pm Reason for Visit Admit Date Malfunction of arteriovenous dialysis fi stula June 18, 2024 11:17am DM type 1 (diabetes mellitus, type 1) Ap ril 2024 10:36am Hyperlipidemia July 28, 2024 10: 36am Hypertension July 28, 2024 10: 36am Insulin pump titration July 28, 2024 10:36am Overweight July 28, 2024 10: 36am Presence of insulin pump July 28 10:36am Vitamin D deficiency July 28, 2024 10 :36am AV fistula August 05, 2024 10:47a m ESRD (end stage renal disease) on dialys is August 10, 2024 11:09pm Chest pain August 10, 2024 11:09 pm Dyspepsia August 10, 2024 11:09 pm Elevated troponin August 10, 2024 11:09 pm Dysphagia August 17, 2024 2:27p m Odynophagia August 17, 2024 2:27p m Dysphagia August 31, 2024 10:25 am Odynophagia August 31, 2024 10:25 am History of coronary artery stent placeme nt August 31, 2024 3:01pm Hyperlipidemia August 31, 2024 3:01p m Hypertension August 31, 2024 3:01p m Erosive esophagitis September 07, 2024 12:4 4pm Chief Complaint Admit Date End stage renal disease June 10, 2024 12:54pm Discuss AV Fistula Dialysis Graft Scan M arch 2024 11:17am LEFT FOREARM T82.590A July 07, 2024 6: 52am LEFT FOREARM T82.590A July 07, 2024 6: 54pm left Fistula Arteriovenous Ligation Apri l 2024 12:48pm left Fistula Arteriovenous Ligation Apri l 2024 3:55pm 5 M FU July 28, 2024 10: 36am Post Fistula Ligation 2-4 WK FU August 05, 2024 10:47am CHEST PAIN August 10, 2024 11:09 pm CHEST PAIN August 11, 2024 12:43 pm CHEST PAIN August 11, 2024 2:40p m SWALLOWED FOOD GETS STUCK August 17, 2024 2:27pm Arteriovenous fistula, acquired July 10:01am fever August 23, 2024 12:29 am 2 M FU August 31, 2024 3:01p m Reason for Visit Admit Date Malfunction of arteriovenous dialysis fi stula June 18, 2024 11:17am DM type 1 (diabetes mellitus, type 1) Ap ril 2024 10:36am Hyperlipidemia July 28, 2024 10: 36am Hypertension July 28, 2024 10: 36am Insulin pump titration July 28, 2024 10:36am Overweight July 28, 2024 10: 36am Presence of insulin pump July 28 10:36am Vitamin D deficiency July 28, 2024 10 :36am AV fistula August 05, 2024 10:47a m ESRD (end stage renal disease) on dialys is August 10, 2024 11:09pm Chest pain August 10, 2024 11:09 pm Dyspepsia August 10, 2024 11:09 pm Elevated troponin August 10, 2024 11:09 pm Dysphagia August 17, 2024 2:27p m Odynophagia August 17, 2024 2:27p m Dysphagia August 31, 2024 10:25 am Odynophagia August 31, 2024 10:25 am Decreased pedal pulses August 31, 2024 3: 01pm History of coronary artery stent placeme nt August 31, 2024 3:01pm Hyperlipidemia August 31, 2024 3:01p m Hypertension August 31, 2024 3:01p m Reason for Visit Admit Date Malfunction of arteriovenous dialysis fi stula June 18, 2024 11:17am DM type 1 (diabetes mellitus, type 1) Ap ril 2024 10:36am Hyperlipidemia July 28, 2024 10: 36am Hypertension July 28, 2024 10: 36am Insulin pump titration July 28, 2024 10:36am Overweight July 28, 2024 10: 36am Presence of insulin pump July 28 10:36am Vitamin D deficiency July 28, 2024 10 :36am AV fistula August 05, 2024 10:47a m ESRD (end stage renal disease) on dialys is August 10, 2024 11:09pm Chest pain August 10, 2024 11:09 pm Dyspepsia August 10, 2024 11:09 pm Elevated troponin August 10, 2024 11:09 pm Dysphagia August 17, 2024 2:27p m Odynophagia August 17, 2024 2:27p m Dysphagia August 31, 2024 10:25 am Odynophagia August 31, 2024 10:25 am Chief Complaint Admit Date End stage renal disease June 10, 2024 12:54pm Discuss AV Fistula Dialysis Graft Scan M arch 2024 11:17am LEFT FOREARM T82.590A July 07, 2024 6: 52am LEFT FOREARM T82.590A July 07, 2024 6: 54pm left Fistula Arteriovenous Ligation Apri l 2024 12:48pm left Fistula Arteriovenous Ligation Apri l 2024 3:55pm 5 M FU July 28, 2024 10: 36am Post Fistula Ligation 2-4 WK FU August 05, 2024 10:47am CHEST PAIN August 10, 2024 11:09 pm CHEST PAIN August 11, 2024 12:43 pm CHEST PAIN August 11, 2024 2:40p m SWALLOWED FOOD GETS STUCK August 17, 2024 2:27pm Arteriovenous fistula, acquired July 10:01am fever August 23, 2024 12:29 am 2 M FU August 31, 2024 3:01p m 1 Month f/u September 07, 2024 12:4 4pm DYSPHAGIA September 16, 2024 8:08 am Advance Directives No Advanced Directives Records Found Advance Directive Response Recorded Date/ Time Advance Directives No November 12:01am Living Will No March 28, 2 020 11:08am Power of Germ Drier No March 28, 2020 11:08am Advance Directive Response Recorded Date/ Time Advance Directives No November 12:01am Living Will No November 02, 2021 5:11pm Power of Germ Drier No November 02 5:11pm Advance Directive Response Recorded Date/ Time Advance Directives No May 10:41am Living Will No May 13, 024 10:41am Power of Germ Drier No May 13, 2023 10:41am Advance Directive Response Recorded Date/ Time Advance Directives No May 11:41am Living Will No July 01, 2023 1:19pm Power of Germ Drier No June 30 1:19pm Advance Directive Response Recorded Date/ Time Advance Directives No May 11:41am Living Will No July 01, 2023 7:29pm Power of Germ Drier No June 30 7:29pm Advance Directive Response Recorded Date/ Time Advance Directives No May 11:41am Living Will No August 01, 2023 7: 35am Power of Germ Drier No August 01, 2023 7:35am Advance Directive Response Recorded Date/ Time Living Will No April 20 11:30am Do you have a Healthcare Power of Germ Drier? No April 20, 2024 11:30am Advance Directives No January 5:03pm Advance Directive Response Recorded Date/ Time Living Will No April 20 11:30am Do you have a Healthcare Power of Germ Drier? No April 20, 2024 11:30am Living Will No July 07, 2024 7:22am Do you have a Healthcare Power of Germ Drier? No July 07, 2024 7:22am Advance Directives No July 07 7:22am Advance Directive Response Recorded Date/ Time Living Will No July 16, 2024 2:53pm Do you have a Healthcare Power of Germ Drier? No July 16, 2024 2:53pm Living Will No April 20 11:30am Do you have a Healthcare Power of Germ Drier? No April 20, 2024 11:30am Living Will No July 07, 2024 7:22am Do you have a Healthcare Power of Germ Drier? No July 07, 2024 7:22am Advance Directives No July 07 7:22am Advance Directive Response Recorded Date/ Time Living Will No July 16, 2024 2:53pm Do you have a Healthcare Power of Germ Drier? No July 16, 2024 2:53pm Do you have a Healthcare Power of Germ Drier? No August 10, 2024 7:49pm Living Will No April 20 11:30am Do you have a Healthcare Power of Germ Drier? No April 20, 2024 11:30am Living Will No July 07, 2024 7:22am Do you have a Healthcare Power of Germ Drier? No July 07, 2024 7:22am Advance Directives No July 07 7:22am Advance Directive Response Recorded Date/ Time Living Will No July 16, 2024 2:53pm Do you have a Healthcare Power of Germ Drier? No July 16, 2024 2:53pm Do you have a Healthcare Power of Germ Drier? No August 11, 2024 12:24am Living Will No April 20 11:30am Do you have a Healthcare Power of Germ Drier? No April 20, 2024 11:30am Living Will No July 07, 2024 7:22am Do you have a Healthcare Power of Germ Drier? No July 07, 2024 7:22am Advance Directives No July 07 7:22am Advance Directive Response Recorded Date/ Time Living Will No July 16, 2024 2:53pm Do you have a Healthcare Power of Germ Drier? No July 16, 2024 2:53pm Do you have a Healthcare Power of Germ Drier? No August 11, 2024 12:24am Do you have a Healthcare Power of Germ Drier? No August 23, 2024 2:13am Living Will No July 07, 2024 7:22am Do you have a Healthcare Power of Germ Drier? No July 07, 2024 7:22am Advance Directives No July 07 7:22am Date Activated Date Inactivated Comments 08/23/2024 11:56 AM 08/28/2024 4:27 PM Advance Directive Response Recorded Date/ Time Living Will No July 16, 2024 2:53pm Do you have a Healthcare Power of Germ Drier? No July 16, 2024 2:53pm Do you have a Healthcare Power of Germ Drier? No August 11, 2024 12:24am Do you have a Healthcare Power of Germ Drier? No August 30, 2024 10:31am Do you have a Healthcare Power of Germ Drier? No August 23, 2024 2:13am Living Will No July 07, 2024 7:22am Do you have a Healthcare Power of Germ Drier? No July 07, 2024 7:22am Advance Directives No July 07 7:22am Reason for Referral Specialty Diagnoses / Procedures Referred By Erika rodriguez Referred To Contact Kristal Sullivan MD [address] [place] [address] Referral ID Status Reason Start Date Expiration Date V isits Requested Visits Authorized [id number] Pending Review 1 1 Specialty Diagnoses / Procedures Referred By Erika rodriguez Referred To Contact CT IMAGING Diagnoses Chronic renal failure, stage 4 (severe) (HCC) Pre-transplant evaluation for kidney and pancreas transplant Procedures CT ABD/PEL WO IVCON CT ABD & PELVIS W/O CONTRAST Kim Chung PA-C [address] [place] [address] [place] [address] Referral ID Status Reason Start Date Expiration Date Visits Requested Visits Authorized [id number] Pending Review Auto-Generat ed Referral 08/07/2023 08/29/2024 1 1 Referral ID Status Reason Start Date Expiration Date V isits Requested Visits Authorized [id number] Closed Auto-Generated Referral Patient Cleared - INN Insurance Found 08/14/2023 10/13/2023 1 1 Family History No Family History Records Found Relationship Condition Age at Onset Recorded Date/T tory mother Diabetes mellitus Unknown Disorder of thyroid Unknown grandmother Diabetes mellitus Unknown grandfather Diabetes mellitus Unknown Summary Purpose Additional Source Comments Goals (unrecognized section and content) Goals may be documented in a n alternate sectionGoals may be documented in an alternate sectionGoals may be documented in an alternate sectionGoals may be documented in an alternate section No data available for this sectionGoals may be documented in an alternate sectionGoals may be documented in an alternate section Source Comments (unrecognize d section and content) In the event this informatio n is protected by the Federal Confidentiality of Alcohol and Drug Abuse Patient Records regulations: The Federal rules restrict any use of the information to criminally investigate or prosecute any alcohol or drug abuse patient.[facility] the event this information is protected by the Federal Confidentiality of Alcohol and Drug Abuse Patient Records regulations: The Federal rules restrict any use of the information to criminally investigate or prosecute any alcohol or drug abuse patient.[facility]In the event this information is protected by the Federal Confidentiality of Alcohol and Drug Abuse Patient Records regulations: The Federal rules restrict any use of the information to criminally investigate or prosecute any alcohol or drug abuse patient.[facility]In the event this information is protected by the Federal Confidentiality of Alcohol and Drug Abuse Patient Records regulations: The Federal rules restrict any use of the information to criminally investigate or prosecute any alcohol or drug abuse patient.[facility]In the event this information is protected by the Federal Confidentiality of Alcohol and Drug Abuse Patient Records regulations: The Federal rules restrict any use of the information to criminally investigate or prosecute any alcohol or drug abuse patient.[facility]In the event this information is protected by the Federal Confidentiality of Alcohol and Drug Abuse Patient Records regulations: The Federal rules restrict any use of the information to criminally investigate or prosecute any alcohol or drug abuse patient.[facility]In the event this information is protected by the Federal Confidentiality of Alcohol and Drug Abuse Patient Records regulations: The Federal rules restrict any use of the information to criminally investigate or prosecute any alcohol or drug abuse patient.[facility]In the event this information is protected by the Federal Confidentiality of Alcohol and Drug Abuse Patient Records regulations: The Federal rules restrict any use of the information to criminally investigate or prosecute any alcohol or drug abuse patient.[facility]In the event this information is protected by the Federal Confidentiality of Alcohol and Drug Abuse Patient Records regulations: The Federal rules restrict any use of the information to criminally investigate or prosecute any alcohol or drug abuse patient.[facility]In the event this information is protected by the Federal Confidentiality of Alcohol and Drug Abuse Patient Records regulations: The Federal rules restrict any use of the information to criminally investigate or prosecute any alcohol or drug abuse patient.[facility] HospitalIn the event this information is protected by the Federal Confidentiality of Alcohol and Drug Abuse Patient Records regulations: The Federal rules restrict any use of the information to criminally investigate or prosecute any alcohol or drug abuse patient.[facility]In the event this information is protected by the Federal Confidentiality of Alcohol and Drug Abuse Patient Records regulations: The Federal rules restrict any use of the information to criminally investigate or prosecute any alcohol or drug abuse patient.[facility] HospitalIn the event this information is protected by the Federal Confidentiality of Alcohol and Drug Abuse Patient Records regulations: The Federal rules restrict any use of the information to criminally investigate or prosecute any alcohol or drug abuse patient.[facility]In the event this information is protected by the Federal Confidentiality of Alcohol and Drug Abuse Patient Records regulations: The Federal rules restrict any use of the information to criminally investigate or prosecute any alcohol or drug abuse patient.[facility]In the event this information is protected by the Federal Confidentiality of Alcohol and Drug Abuse Patient Records regulations: The Federal rules restrict any use of the information to criminally investigate or prosecute any alcohol or drug abuse patient.[facility] HospitalIn the event this information is protected by the Federal Confidentiality of Alcohol and Drug Abuse Patient Records regulations: The Federal rules restrict any use of the information to criminally investigate or prosecute any alcohol or drug abuse patient.[facility] HospitalIn the event this information is protected by the Federal Confidentiality of Alcohol and Drug Abuse Patient Records regulations: The Federal rules restrict any use of the information to criminally investigate or prosecute any alcohol or drug abuse patient.[facility] HospitalIn the event this information is protected by the Federal Confidentiality of Alcohol and Drug Abuse Patient Records regulations: The Federal rules restrict any use of the information to criminally investigate or prosecute any alcohol or drug abuse patient.[facility] HospitalIn the event this information is protected by the Federal Confidentiality of Alcohol and Drug Abuse Patient Records regulations: The Federal rules restrict any use of the information to criminally investigate or prosecute any alcohol or drug abuse patient.[facility] HospitalIn the event this information is protected by the Federal Confidentiality of Alcohol and Drug Abuse Patient Records regulations: The Federal rules restrict any use of the information to criminally investigate or prosecute any alcohol or drug abuse patient.[facility] HospitalIn the event this information is protected by the Federal Confidentiality of Alcohol and Drug Abuse Patient Records regulations: The Federal rules restrict any use of the information to criminally investigate or prosecute any alcohol or drug abuse patient.[facility] HospitalIn the event this information is protected by the Federal Confidentiality of Alcohol and Drug Abuse Patient Records regulations: The Federal rules restrict any use of the information to criminally investigate or prosecute any alcohol or drug abuse patient.[facility] HospitalIn the event this information is protected by the Federal Confidentiality of Alcohol and Drug Abuse Patient Records regulations: The Federal rules restrict any use of the information to criminally investigate or prosecute any alcohol or drug abuse patient.[facility] HospitalIn the event this information is protected by the Federal Confidentiality of Alcohol and Drug Abuse Patient Records regulations: The Federal rules restrict any use of the information to criminally investigate or prosecute any alcohol or drug abuse patient.[facility]In the event this information is protected by the Federal Confidentiality of Alcohol and Drug Abuse Patient Records regulations: The Federal rules restrict any use of the information to criminally investigate or prosecute any alcohol or drug abuse patient.[facility]In the event this information is protected by the Federal Confidentiality of Alcohol and Drug Abuse Patient Records regulations: The Federal rules restrict any use of the information to criminally investigate or prosecute any alcohol or drug abuse patient.[facility] HospitalIn the event this information is protected by the Federal Confidentiality of Alcohol and Drug Abuse Patient Records regulations: The Federal rules restrict any use of the information to criminally investigate or prosecute any alcohol or drug abuse patient.[facility] HospitalIn the event this information is protected by the Federal Confidentiality of Alcohol and Drug Abuse Patient Records regulations: The Federal rules restrict any use of the information to criminally investigate or prosecute any alcohol or drug abuse patient.[facility] HospitalIn the event this information is protected by the Federal Confidentiality of Alcohol and Drug Abuse Patient Records regulations: The Federal rules restrict any use of the information to criminally investigate or prosecute any alcohol or drug abuse patient.[facility] HospitalIn the event this information is protected by the Federal Confidentiality of Alcohol and Drug Abuse Patient Records regulations: The Federal rules restrict any use of the information to criminally investigate or prosecute any alcohol or drug abuse patient.[facility] HospitalIn the event this information is protected by the Federal Confidentiality of Alcohol and Drug Abuse Patient Records regulations: The Federal rules restrict any use of the information to criminally investigate or prosecute any alcohol or drug abuse patient.[facility] HospitalIn the event this information is protected by the Federal Confidentiality of Alcohol and Drug Abuse Patient Records regulations: The Federal rules restrict any use of the information to criminally investigate or prosecute any alcohol or drug abuse patient.[facility] HospitalIn the event this information is protected by the Federal Confidentiality of Alcohol and Drug Abuse Patient Records regulations: The Federal rules restrict any use of the information to criminally investigate or prosecute any alcohol or drug abuse patient.[facility] HospitalIn the event this information is protected by the Federal Confidentiality of Alcohol and Drug Abuse Patient Records regulations: The Federal rules restrict any use of the information to criminally investigate or prosecute any alcohol or drug abuse patient.[facility] HospitalIn the event this information is protected by the Federal Confidentiality of Alcohol and Drug Abuse Patient Records regulations: The Federal rules restrict any use of the information to criminally investigate or prosecute any alcohol or drug abuse patient.[facility] HospitalIn the event this information is protected by the Federal Confidentiality of Alcohol and Drug Abuse Patient Records regulations: The Federal rules restrict any use of the information to criminally investigate or prosecute any alcohol or drug abuse patient.[facility] HospitalIn the event this information is protected by the Federal Confidentiality of Alcohol and Drug Abuse Patient Records regulations: The Federal rules restrict any use of the information to criminally investigate or prosecute any alcohol or drug abuse patient.[facility]In the event this information is protected by the Federal Confidentiality of Alcohol and Drug Abuse Patient Records regulations: The Federal rules restrict any use of the information to criminally investigate or prosecute any alcohol or drug abuse patient.[facility] HospitalIn the event this information is protected by the Federal Confidentiality of Alcohol and Drug Abuse Patient Records regulations: The Federal rules restrict any use of the information to criminally investigate or prosecute any alcohol or drug abuse patient.[facility] HospitalIn the event this information is protected by the Federal Confidentiality of Alcohol and Drug Abuse Patient Records regulations: The Federal rules restrict any use of the information to criminally investigate or prosecute any alcohol or drug abuse patient.[facility] HospitalIn the event this information is protected by the Federal Confidentiality of Alcohol and Drug Abuse Patient Records regulations: The Federal rules restrict any use of the information to criminally investigate or prosecute any alcohol or drug abuse patient.[facility] HospitalIn the event this information is protected by the Federal Confidentiality of Alcohol and Drug Abuse Patient Records regulations: The Federal rules restrict any use of the information to criminally investigate or prosecute any alcohol or drug abuse patient.[facility] HospitalIn the event this information is protected by the Federal Confidentiality of Alcohol and Drug Abuse Patient Records regulations: The Federal rules restrict any use of the information to criminally investigate or prosecute any alcohol or drug abuse patient.[facility] HospitalIn the event this information is protected by the Federal Confidentiality of Alcohol and Drug Abuse Patient Records regulations: The Federal rules restrict any use of the information to criminally investigate or prosecute any alcohol or drug abuse patient.[facility] HospitalIn the event this information is protected by the Federal Confidentiality of Alcohol and Drug Abuse Patient Records regulations: The Federal rules restrict any use of the information to criminally investigate or prosecute any alcohol or drug abuse patient.[facility] HospitalIn the event this information is protected by the Federal Confidentiality of Alcohol and Drug Abuse Patient Records regulations: The Federal rules restrict any use of the information to criminally investigate or prosecute any alcohol or drug abuse patient.[facility] HospitalIn the event this information is protected by the Federal Confidentiality of Alcohol and Drug Abuse Patient Records regulations: The Federal rules restrict any use of the information to criminally investigate or prosecute any alcohol or drug abuse patient.[facility] HospitalIn the event this information is protected by the Federal Confidentiality of Alcohol and Drug Abuse Patient Records regulations: The Federal rules restrict any use of the information to criminally investigate or prosecute any alcohol or drug abuse patient.[facility] HospitalIn the event this information is protected by the Federal Confidentiality of Alcohol and Drug Abuse Patient Records regulations: The Federal rules restrict any use of the information to criminally investigate or prosecute any alcohol or drug abuse patient.[facility] HospitalIn the event this information is protected by the Federal Confidentiality of Alcohol and Drug Abuse Patient Records regulations: The Federal rules restrict any use of the information to criminally investigate or prosecute any alcohol or drug abuse patient.[facility] Care Teams (unrecognized sec tion and content) Wad Impregnator Relationship Specialty Start Date End Date Kristal Sullivan MD [address] [place] [address] PCP - General Internal Medicine 11/17/14 Reid Ko MD [facility] Endocrinology 12/08/19 Reid Ko MD Track [facility] Endocrinology 01/11/20 [facility] 09/14/19 Wad Impregnator Relationship Specialty Start Date End Date Kristal Sullivan MD [address] [place] [address] PCP - General Internal Medicine 11/17/14 Reid Ko MD [address] [place] [address] [facility] Endocrinology 12/08/19 Reid Ko MD [address] [place] [address] Track [facility] Endocrinology 01/11/20 [facility] 09/14/19 Wad Impregnator Relationship Specialty Start Date End Date Kristal Sullivan MD [address] [place] [address] PCP - General Internal Medicine 11/17/14 Reid Ko MD [address] [place] [address] Track [facility] Endocrinology 12/08/19 Reid Ko MD [address] [place] [address] Track [facility] Endocrinology 01/11/20 [facility] 09/14/19 Wad Impregnator Relationship Specialty Start Date End Date Kristal Sullivan MD [address] [place] [address] PCP - General Internal Medicine 11/17/14 Reid Ko MD [address] [place] [address] Track [facility] Endocrinology 12/08/19 Reid Ko MD [address] [place] [address] Track Ann[facility] Endocrinology 01/11/20 [facility] 09/14/19 Wad Impregnator Relationship Specialty Start Date End Date Kristal Sullivan MD [address] [place] [address] PCP - General Internal Medicine 11/17/14 Reid Ko MD [address] [place] [address] Track [facility] Endocrinology 12/08/19 Reid Ko MD [address] [place] [address] Track [facility] Endocrinology 01/11/20 [facility] 09/14/19 Wad Impregnator Relationship Specialty Start Date End Date Kristal Sullivan MD [address] [place] [address] PCP - General Internal Medicine 11/17/14 Reid Ko MD [address] [facility], [place] [address] [facility] Endocrinology 12/08/19 Reid Ko MD [address] [facility], [place] [id number] Track [facility] Endocrinology 01/11/20 [facility] 09/14/19 Team Status: Active Member Role Status Dates Dr. Kristal Sullivan MD Family Provider Active Dr. Kristal Sullivan MD Primary Care Provider Active Team Status: Inactive Member Role Status Dates Dr. Kristal Sullivan MD Primary Care Provider, Referring Provider Active RAVINDER Infante Attending Provider Active Team Status: Inactive Member Role Status Dates Dr. Kristal Sullivan MD Primary Care Provider Active Dr. Ayush Lee MD Attending Provider, Emergency Pro vider Active Team Status: Inactive Member Role Status Dates Dr. Kristal Sullivan MD Primary Care Provider Active RAVINDER Infante Attending Provider, Referring Pr ovider Active Team Status: Active Member Role Status Dates Dr. Kristal Sullivan MD Primary Care Provider Active Dr. Laurie Elizalde DO Emergency Provider Active Dr. Louis Koehler MD Attending Provider Active Team Status: Active Member Role Status Dates Dr. Kristal Sullivan MD Primary Care Provider Active Dr. Laurie Elizalde DO Emergency Provider Active Dr. Louis Koehler MD Admit Provider, Attending Provi isidro Active Team Status: Active Member Role Status Dates Dr. Kristal Sullivan MD Primary Care Provider Active Dr. Daisy Diaz MD Attending Provider, Referri ng Provider Active Team Status: Active Member Role Status Dates Dr. Kristal Sullivan MD Primary Care Provider Active Dr. Jordy Garcia MD Attending Provider Active Team Status: Active Member Role Status Dates Dr. Kristal Sullivan MD Primary Care Provider Active Dr. Laurie Elizalde DO Emergency Provider Active Dr. Louis Koehler MD Admit Provider, Other Provider Active Dr. Daisy Diaz MD Other Provider Active Dr. Nelly Gross MD Attending Provider Active Team Status: Inactive Member Role Status Dates Dr. Kristal Sullivan MD Primary Care Provider Active Dr. Daisy Diaz MD Attending Provider, Referri ng Provider Active Team Status: Active Member Role Status Dates Dr. Kristal Sullivan MD Primary Care Provider Active Dr. Laurie Elizalde DO Emergency Provider Active Dr. Louis Koehler MD Admit Provider, Other Provider Active Dr. Daisy Diaz MD Other Provider Active Dr. Nelly Gross MD Attending Provider, Other Prov ider Active Team Status: Inactive Member Role Status Dates Dr. Kristal Sullivan MD Primary Care Provider Active Dr. Laurie Elizalde DO Emergency Provider Active Dr. Louis Koehler MD Admit Provider, Other Provider Active Dr. Daisy Diaz MD Other Provider Active Dr. Nelly Gross MD Attending Provider Active Wad Impregnator Relationship Specialty Start Date End Date Kristal Sullivan MD [address] [place] [address] PCP - General Internal Medicine 11/17/14 Reid Ko MD [address] [place] [address] [facility] End[facility]in[facility] 12/08/19 Reid Ko MD [address] [place], [place] [address] Track [facility] Endocrinology 01/11/20 [facility] 09/14/19 Wad Impregnator Relationship Specialty Start Date End Date Kristal Sullivan MD [address] [place], [place] [address] PCP - General Internal Medicine 11/17/14 Reid Ko MD [address] [place] [address] [facility] Endocrinology 12/08/19 Reid Ko MD [address] [facility] [place] [address] [facility] Endocrinology 01/11/20 [facility] 09/14/19 Team Status: Inactive Member Role Status Dates Dr. Kristal Sullivan MD Primary Care Provider, Referring Provider Active Dr. Caleb Vargas MD Attending Provider Active Team Status: Active Member Role Status Dates Dr. Kristal Sullivan MD Primary Care Provider Active Dr. Caleb Vargas MD Attending Provider Active Team Status: Active Member Role Status Dates Dr. Kristal Sullivan MD Primary Care Provider Active Dr. Caleb Vargas MD Attending Provid er, Referring Provider, Other Provider Active Team Status: Inactive Member Role Status Dates Dr. Kristal Sullivan MD Primary Care Provider Active Dr. Caleb Vargas MD Attending Provider, Referring Provider Active Team Status: Inactive Member Role Status Dates Dr. Kristal Sullivan MD Primary Care Provider Active Dr. Caleb Vargas MD Attending Provider Active Wad Impregnator Relationship Specialty Start Date End Date Kristal Sullivan MD [address] [place] [address] PCP - General Internal Medicine 11/17/14 Reid Ko MD [address] [place] [address] [facility] Endocrin[facility] 12/08/19 Reid Ko MD [address] [place] [address] Track [facility] Endocrinology 01/11/20 [facility] 09/14/19 Wad Impregnator Relationship Specialty Start Date End Date Kristal Sullivan MD [address] [place] [address] PCP - General Internal Medicine 11/17/14 Reid Ko MD [address] [place] [address] [facility] Endocrinology 12/08/19 Redi Ko MD [address] [place] [address] Track Ann[facility] Endocrinology 01/11/20 [facility] 09/14/19 Wad Impregnator Relationship Specialty Start Date End Date Kristal Sullivan MD [address] [place] [address] PCP - General Internal Medicine 11/17/14 Reid Ko MD [address] [place] [address] Track [facility] Endocrinology 12/08/19 Reid Ko MD [address] [place] [address] Track Ann[facility] Endocrinology 01/11/20 [facility] 09/14/19 Wad Impregnator Relationship Specialty Start Date End Date Kristal Sullivan MD [address] [place] [address] PCP - General Internal Medicine 11/17/14 Reid Ko MD [address] [place] [address] Track [facility] Endocrinology 12/08/19 Reid Ko MD [address] [place] [address] Track Ann[facility] Endocrinology 01/11/20 [facility] 09/14/19 Wad Impregnator Relationship Specialty Start Date End Date Kristal Sullivan MD [address] [place] [address] PCP - General Internal Medicine 11/17/14 Reid Ko MD [address] [place] [address] [employer] [facility] Endocrinology 12/08/19 Reid Ko MD [address] [place] [address] [facility] Endocrinology 01/11/20 [facility] 09/14/19 Wad Impregnator Relationship Specialty Start Date End Date Kristal Sullivan MD [address] [place] [address] PCP - General Internal Medicine 11/17/14 Reid Ko MD [address] [place] [address] [employer] [facility] Endocrinology 12/08/19 Reid Ko MD [address] [place] [address] [facility] Ann[facility] Endocrinology 01/11/20 [facility] 09/14/19 Wad Impregnator Relationship Specialty Start Date End Date Kristal Sullivan MD [address] [place] [address] PCP - General Internal Medicine 11/17/14 Reid Ko MD [address] [place] [address] [employer] [facility] Endocrinology 12/08/19 Reid Ko MD [address] [place] [address] [facility] Endocrinology 01/11/20 [facility] 09/14/19 Wad Impregnator Relationship Specialty Start Date End Date Kristal Sullivan MD [address] [place] [address] PCP - General Internal Medicine 11/17/14 Reid Ko MD [address] [place] [address] [employer] [facility] Endocrinology 12/08/19 Reid Ko MD [address] [place] [address] [employer] Ann[facility] Endocrinology 01/11/20 [facility] 09/14/19 Wad Impregnator Relationship Specialty Start Date End Date Kristal Sullivan MD [address] [place] [address] PCP - General Internal Medicine 11/17/14 Reid Ko MD [address] [place] [address] [employer] [facility] Endocrinology 12/08/19 Reid Ko MD [address] [place] [address] Track Ann[facility]cer Endocrinology 01/11/20 [facility] 09/14/19 Wad Impregnator Relationship Specialty Start Date End Date Kristal Sullivan MD [address] [place] [address] PCP - General Internal Medicine 11/17/14 Reid Ko MD [address] [place] [address] [employer] [facility] Endocrinology 12/08/19 Reid Ko MD [address] [place] [address] Track Ann[facility]cer Endocrinology 01/11/20 [facility] 09/14/19 Wad Impregnator Relationship Specialty Start Date End Date Kristal Sullivan MD [address] [place] [address] PCP - General Internal Medicine 11/17/14 Reid Ko MD [address] [place] [address] [employer] [facility] Endocrinology 12/08/19 Reid Ko MD [address] [place] [address] Track Ann[facility]cer Endocrinology 01/11/20 [facility] 09/14/19 Wad Impregnator Relationship Specialty Start Date End Date Kristal Sullivan MD [address] [place] [address] PCP - General Internal Medicine 11/17/14 Reid Ko MD [address] [place] [address] [employer] [facility] Endocrinology 12/08/19 Reid Ko MD [address] [place] [address] Track Ann[facility]cer Endocrinology 01/11/20 Vicki Samuel PA-C [address] [place] [address] [facility] Binta Oneil APRN.MEDICAL LABORATORY SPECIALIST [address] [place] [address] [facility] 03/07/24 Basia Deluna PA-C [address] [place] [address] [facility] 03/07/24 [facility] 09/14/19 Wad Impregnator Relationship Specialty Start Date End Date Kristal Sullivan MD [address] [place] [address] PCP - General Internal Medicine 11/17/14 Reid Ko MD [address] [place] [address] [employer] [facility] Endocrinology 12/08/19 Reid Ko MD [address] [place] [address] [employer] [facility] Endocrinology 01/11/20 Vicki Samuel PA-C [address] [place] [address] [facility] 03/07/24 Binta Oneil APRN.MEDICAL LABORATORY SPECIALIST [address] [place] [address] [employer] [facility] Internal [facility] 03/07/24 Basia Deluna PA-C [address] [place] [address] [employer] [facility] 03/07/24 [facility] 09/14/19 Wad Impregnator Relationship Specialty Start Date End Date Kristal Sullivan MD [address] [place] [address] PCP - General Internal Medicine 11/17/14 Reid Ko MD [address] [place] [address] [employer] [facility] Endocrinology 12/08/19 Reid Ko MD [address] [place] [address] [employer] [facility] Endocrinology 01/11/20 Vicki Samuel PA-C [address] [place] [address] [facility] 03/07/24 Binta Oneil APRN.MEDICAL LABORATORY SPECIALIST [address] [place] [address] [employer] [facility] 03/07/24 Basia Deluna PA-C [address] [place] [address] [facility] 03/07/24 [facility] 09/14/19 Wad Impregnator Relationship Specialty Start Date End Date Kristal Sullivan MD [address] [place] [address] PCP - General Internal Medicine 11/17/14 Reid Ko MD [address] [place] [address] [employer] [facility] Endocrin[facility] 12/08/19 Reid Ko MD [address] [place] [address] [employer] [facility]ocrinology 01/11/20 Vicki Samuel PA-C [address] [place] [address] [facility] 03/07/24 Binta Oneil APRN.[facility] [address] [place] [address] [employer] Internal Medicine 03/07/24 Basia Deluna PA-C [address] [place] [address] [employer] 03/07/24 [facility] 09/14/19 Wad Impregnator Relationship Specialty Start Date End Date Kristal Sullivan MD [address] [place] [address] PCP - General Internal Medicine 11/17/14 Reid Ko MD [address] [place] [address] Track [facility] Endocrinology 12/08/19 Reid Ko MD [address] [facility] [place] [address] [facility] Endocrinology 01/11/20 Vicki Samuel PA-C [address] [place] [address] [employer] 03/07/24 Binta Oneil APRN.MEDICAL LABORATORY SPECIALIST [address] [place] [address] [employer] [facility] 03/07/24 Basia Deluna PA-C [address] [place] [address] [facility] 03/07/24 [facility] 09/14/19 Wad Impregnator Relationship Specialty Start Date End Date Kristal Sullivan MD [address] [place] [address] PCP - General Internal Medicine 11/17/14 Reid Ko MD [address] [place] [address] [employer] [facility] Endocrinology 12/08/19 Reid Ko MD [address] [place] [address] [employer] [facility] Endocrinology 01/11/20 Vicki Samuel PA-C [address] [place] [address] [employer] 03/07/24 Binta Oneil APRN.MEDICAL LABORATORY SPECIALIST [address] [place] [address] [employer] [facility] Internal [facility] 03/07/24 Basia Deluna PA-C [address] [place] [address] [employer] 03/07/24 [facility] 09/14/19 Wad Impregnator Relationship Specialty Start Date End Date Kristal Sullivan MD [address] [place] [address] PCP - General Internal Medicine 11/17/14 Reid Ko MD [address] [place], [place] [address] [facility] Endocrinology 12/08/19 Reid Ko MD [address] [place] [address] [facility] Endocrinology 01/11/20 Vicki Samuel PA-C [address] [place] [address] [employer] 03/07/24 Binta Oneil APRN.CNP [address] [place] [address] [employer] [facility] 03/07/24 Basia Deluna PA-C [address] [place] [address] [employer] [facility] 03/07/24 [facility] 09/14/19 Wad Impregnator Relationship Specialty Start Date End Date Kristal Sullivan MD [address] [facility] [place] [address] PCP - General Internal Medicine 11/17/14 Reid Ko MD [address] [place] [address] Track [facility] Endocrinology 12/08/19 Reid Ko MD [address] [place] [address] [employer] [facility] Endocrinology 01/11/20 Vicki Samuel PA-C [address] [place] [address] [employer] 03/07/24 Binta Oneil APRN.MEDICAL LABORATORY SPECIALIST [address] [place] [address] [employer] [facility] 03/07/24 Basia Deluna PA-C [address] [place] [address] [employer] 03/07/24 [facility] 09/14/19 Wad Impregnator Relationship Specialty Start Date End Date Kristal Sullivan MD [address] [place] [address] PCP - General Internal Medicine 11/17/14 Reid Ko MD [address] [place] [address] [facility] Endocrinology 12/08/19 Reid Ko MD [address] [place] [address] [facility] Endocrinology 01/11/20 Vicki Samuel PA-C [address] [place] [address] [facility] 03/07/24 Binta Oneil APRN.MEDICAL LABORATORY SPECIALIST [address] [place] [address] [employer] [facility] 03/07/24 Basia Deluna PA-C [address] [place] [address] [facility] 03/07/24 [facility] 09/14/19 Wad Impregnator Relationship Specialty Start Date End Date Kristal Sullivan MD [address] [place] [address] PCP - General Internal Medicine 11/17/14 Reid Ko MD [address] [place] [address] [facility] Endocrin[facility] 12/08/19 Reid Ko MD [address] [place] [address] [facility] Endocrinology 01/11/20 Vicki Samuel PA-C [address] [place] [address] [facility] 03/07/24 06/20/24 Binta Oneil APRN.MEDICAL LABORATORY SPECIALIST [address] [place] [address] [employer] [facility] 03/07/24 Basia Deluna PA-C [address] [place] [address] [facility] 03/07/24 06/20/24 [facility] 09/14/19 Wad Impregnator Relationship Specialty Start Date End Date Kristal Sullivan MD [address] [place] [address] PCP - General Internal Medicine 11/17/14 Reid Ko MD [address] [place] [address] [employer] [facility] Endocrinology 12/08/19 Reid Ko MD [address] [place] [address] [facility] Endocrinology 01/11/20 Binta Oneil APRN.[facility] [address] [place] [address] [employer] Internal Medicine 03/07/24 [facility] 09/14/19 Wad Impregnator Relationship Specialty Start Date End Date Kristal Sullivan MD [address] [place] [address] PCP - General Internal Medicine 11/17/14 Reid Ko MD [address] [place] [address] [employer] [facility] Endocrin[facility] 12/08/19 Reid Ko MD [address] [place], [place] [address]38[address] [facility] Endocrinology 01/11/20 Vicki Samuel, VERONICA [address] [place] [address] [facility] 03/07/24 06/20/24 Binta Oneil APRN.MEDICAL LABORATORY SPECIALIST [address] [place] [address] [facility] 03/07/24 Basia Deluna PA-C [address] [place] [address] [facility] 03/07/24 06/20/24 [facility] 09/14/19 Wad Impregnator Relationship Specialty Start Date End Kristal Sullivan MD [address] [place] [address] PCP - General Internal Medicine 11/17/14 Reid Ko MD [address] [place] [address] [facility] Endocrinology 12/08/19 Reid Ko MD [address] [place] [address] [employer] [facility] Endocrinology 01/11/20 Binta Oneil APRN.MEDICAL LABORATORY SPECIALIST [address] [place] [address] [facility] 03/07/24 [facility] 09/14/19 Team Status: Active Member Role Status Dates Dr. Kristal Sullivan MD Primary Care Provider Active Team Status: Inactive Member Role Status Dates No Primary Care Physician Primary Care Provider Active Start: February 25, 2024 End: February 25, 2024 No Primary Care Physician Referring Provider Active Start: February 25, 2024 End: February 25, 2024 Virgen CASTREJON, PA Attending Provider Active Start: February 25, 2024 End: February 25, 2024 Team Status: Inactive Member Role Status Dates No Primary Care Physician Primary Care Provider Active Start: February 25, 2024 End: February 25, 2024 No Primary Care Physician Referring Provider Active Start: February 25, 2024 End: February 25, 2024 ARVINDER Infante Attending Provider Active Start: February 25, 2024 End: February 25, 2024 Team Status: Inactive Member Role Status Dates No Primary Care Physician Primary Care Provider Active Start: March 16, 2024 End: March 16, 2024 Dr. Daisy Diaz MD Attending Provider Active Start: March 16, 2024 End: March 16, 2024 Dr. Daisy Diaz MD Referring Provider Active Start: March 16, 2024 End: March 16, 2024 Virgen CASTREJON, PA Other Provider Active Start: March 16, 2024 End: March 16, 2024 Team Status: Active Member Role Status Dates Dr. Kristal Sullivan MD Primary Care Provider Active Start: March 16, 2024 Dr. Garrison Valadez MD Attending Provider Active S tart: March 16, 2024 Virgen CASTREJON, PA Referring Provider Active Start: March 16, 2024 Team Status: Inactive Member Role Status Dates Dr. Kristal Sullivan MD Primary Care Provider Active Start: April 20, 2024 End: April 20, 2024 Dr. Kristi Murillo DO Attending Provider Active S tart: April 20, 2024 End: April 20, 2024 Dr. Kristi Murillo DO Emergency Provider Active S tart: April 20, 2024 End: April 20, 2024 Team Status: Inactive Member Role Status Dates Dr. Kristal Sullivan MD Primary Care Provider Active Start: April 23, 2024 End: April 23, 2024 Dr. Kristal Sullivan MD Referring Provider Active Start: April 23, 2024 End: April 23, 2024 LUCÍA Mcdermott Attending Provider Active Star t: April 23, 2024 End: April 23, 2024 Team Status: Inactive Member Role Status Dates Dr. Kristal Sullivan MD Primary Care Provider Active Start: June 10, 2024 End: June 10, 2024 LUCÍA Mcdermott Attending Provider Active Star t: June 10, 2024 End: June 10, 2024 LUCÍA Mcdermott Referring Provider Active Star t: June 10, 2024 End: June 10, 2024 Team Status: Active Member Role Status Dates Dr. Kristal Sullivan MD Primary Care Provider Active Start: June 10, 2024 Dr. Garrison Valadez MD Attending Provider Active S tart: June 10, 2024 LUCÍA Mcdermott Referring Provider Active Star t: June 10, 2024 Team Status: Inactive Member Role Status Dates Dr. Kristal Sullivan MD Primary Care Provider Active Start: June 18, 2024 End: June 18, 2024 Dr. Kristal Sullivan MD Referring Provider Active Start: June 18, 2024 End: June 18, 2024 LUCÍA Mcdermott Attending Provider Active Star t: June 18, 2024 End: June 18, 2024 Team Status: Inactive Member Role Status Dates Dr. Kristal Sullivan MD Primary Care Provider Active Start: July 07, 2024 End: July 07, 2024 Dr. Garrison Valadez MD Attending Provider Active S tart: July 07, 2024 End: July 07, 2024 Dr. Garrison Valadez MD Referring Provider Active S tart: July 07, 2024 End: July 07, 2024 Wad Impregnator Relationship Specialty Start Date End Date Kristal Sullivan MD [address] [place] [address] PCP - General Internal Medicine 11/17/14 Reid Ko MD [address] [place] [address] [facility]in[facility] 12/08/19 Reid Ko MD [address] [place], [place] [address] [facility] Endocrinology 01/11/20 Binta Oneil APRN.MEDICAL LABORATORY SPECIALIST [address] [place], [place] [address] [employer] Internal Medicine 03/07/24 [facility] 09/14/19 Team Status: Active Member Role Status Dates Dr. Kristal Sullivan MD Primary Care Provider Active Start: July 07, 2024 Dr. Garrison Valadez MD Attending Provider Active S tart: July 07, 2024 Dr. Garrison Valadez MD Referring Provider Active S tart: July 07, 2024 Dr. Garrison Valadez MD Other Provider Active Start : July 07, 2024 Team Status: Inactive Member Role Status Dates Dr. Kristal Sullivan MD Primary Care Provider Active Start: July 20, 2024 End: July 20, 2024 Dr. Garrison Valadez MD Attending Provider Active S tart: July 20, 2024 End: July 20, 2024 Dr. Garrison Valadez MD Referring Provider Active S tart: July 20, 2024 End: July 20, 2024 Team Status: Active Member Role Status Dates Dr. Kristal Sullivan MD Primary Care Provider Active Start: July 20, 2024 Dr. Garrison Valadez MD Attending Provider Active S tart: July 20, 2024 Dr. Garrison Valadez MD Referring Provider Active S tart: July 20, 2024 Dr. Garrison Valadez MD Other Provider Active Start : July 20, 2024 Team Status: Inactive Member Role Status Dates RAVINDER Infante Attending Provider Active Start: July 28, 2024 End: July 28, 2024 Dr. Kristal Sullivan MD Primary Care Provider Active Start: July 28, 2024 End: July 28, 2024 Dr. Kristal Sullivan MD Referring Provider Active Start: July 28, 2024 End: July 28, 2024 Team Status: Inactive Member Role Status Dates Dr. Kristal Sullivan MD Primary Care Provider Active Start: August 05, 2024 End: August 05, 2024 Dr. Kristal Sullivan MD Referring Provider Active Start: August 05, 2024 End: August 05, 2024 LUCÍA Mcdermott Attending Provider Active Star t: August 05, 2024 End: August 05, 2024 Team Status: Active Member Role Status Dates Dr. Kristal Sullivan MD Primary Care Provider Active Start: August 10, 2024 Dr. Jace Yanes DO Emergency Provider Active Start : August 10, 2024 Dr. Eugenia London , Admit Provider Active Start : August 10, 2024 Dr. Eugenia London DO Attending Provider Active S tart: August 10, 2024 Team Status: Inactive Member Role Status Dates Dr. Kristal Sullivan MD Primary Care Provider Active Start: August 10, 2024 End: August 11, 2024 Dr. Jace Yanes DO Emergency Provider Active Start : August 10, 2024 End: August 11, 2024 Dr. Eugenia London DO Admit Provider Active Start : August 10, 2024 End: August 11, 2024 Dr. Eugenia London , Other Provider Active Start : August 10, 2024 End: August 11, 2024 Dr. Louis Koehler MD Attending Provider Active Start: August 10, 2024 End: August 11, 2024 Dr. Daisy Diaz MD Other Provider Active Start: August 10, 2024 End: August 11, 2024 Team Status: Active Member Role Status Dates Dr. Kristal Sullivan MD Primary Care Provider Active Start: August 11, 2024 Dr. Jace Yanes DO Emergency Provider Active Start : August 11, 2024 Dr. Eugenia London DO Admit Provider Active Start : August 11, 2024 Dr. Eugenia London DO Other Provider Active Start : August 11, 2024 Dr. Louis Koehler MD Other Provider Active Sta rt: August 11, 2024 Dr. Daisy Diaz MD Other Provider Active Start: August 11, 2024 Dr. Jordy Garcia MD Attending Provider Active S tart: August 11, 2024 Team Status: Active Member Role Status Dates Dr. Kristal Sullivan MD Primary Care Provider Active Start: August 11, 2024 Dr. Jace Yanes DO Emergency Provider Active Start : August 11, 2024 Dr. Eugenia London DO Admit Provider Active Start : August 11, 2024 Dr. Eugenia London DO Other Provider Active Start : August 11, 2024 Dr. Louis Koehler MD Attending Provider Active Start: August 11, 2024 Dr. Louis Koehler MD Other Provider Active Sta rt: August 11, 2024 Dr. Daisy Diaz MD Other Provider Active Start: August 11, 2024 Wad Impregnator Relationship Specialty Start Date End Date Kristal Sullivan MD [address] [place] [address] PCP - General Internal Medicine 11/17/14 Reid Ko MD [address] [place] [address] [facility] 12/08/19 Reid Ko MD [address] [place] [address] [facility] Endocrinology 01/11/20 Binta Oneil APRN.[facility] [address] [place] [address] [employer] Internal Medicine 03/07/24 [facility] 09/14/19 Wad Impregnator Relationship Specialty Start Date End Date Kristal Sullivan MD [address] [place] [address] PCP - General Internal Medicine 11/17/14 Reid Ko MD [address] [place] [address] [facility] Endocrinology 12/08/19 Reid Ko MD [address] [place], [place] [address] [facility] Endocrinology 01/11/20 Vicki Samuel PA-C [address] [place] [address] [employer] [facility] 03/07/24 06/20/24 Older, REEMA Judd.MEDICAL LABORATORY SPECIALIST [address] [place] [address] [facility] 03/07/24 Basia Deluna PA-C [address] [place] [address] [facility] 03/07/24 06/20/24 [facility] 09/14/19 Team Status: Inactive Member Role Status Dates Dr. Kristal Sullivan MD Primary Care Provider Active Start: August 17, 2024 End: August 17, 2024 Dr. Kristal Sullivan MD Referring Provider Active Start: August 17, 2024 End: August 17, 2024 RAVINDER Sloan Attending Provider Active Start: August 17, 2024 End: August 17, 2024 Team Status: Active Member Role Status Dates Dr. Kristal Sullivan MD Primary Care Provider Active Start: August 19, 2024 LUCÍA Mcdermott Attending Provider Active Star t: August 19, 2024 LUCÍA Mcdermott Referring Provider Active Star t: August 19, 2024 Team Status: Active Member Role Status Dates Dr. Kristal Sullivan MD Primary Care Provider Active Start: August 19, 2024 Dr. Garrison Valadez MD Attending Provider Active S tart: August 19, 2024 Team Status: Inactive Member Role Status Dates Dr. Kristal Sullivan MD Primary Care Provider Active Start: August 23, 2024 End: August 23, 2024 Dr. Laurie Elizalde DO Emergency Provider Active Start: August 23, 2024 End: August 23, 2024 Team Status: Inactive Member Role Status Dates Dr. Kristal Sullivan MD Primary Care Provider Active Start: August 19, 2024 End: August 19, 2024 LUCÍA Mcdermott Attending Provider Active Star t: August 19, 2024 End: August 19, 2024 LUCÍA Mcdermott Referring Provider Active Star t: August 19, 2024 End: August 19, 2024 Wad Impregnator Relationship Specialty Start Date End Date Kristal Sullivan MD [address] [place] [address] PCP - General Internal Medicine 08/23/24 Team Status: Active Member Role Status Dates Dr. Kristal Sullivan MD Primary Care Provider Active Start: August 19, 2024 Dr. Garrison Valadez MD Attending Provider Active S tart: August 19, 2024 LUCÍA Mcdermott Referring Provider Active Star t: August 19, 2024 Team Status: Inactive Member Role Status Dates Dr. Kristal Sullivan MD Primary Care Provider Active Start: August 23, 2024 End: August 23, 2024 Dr. Laurie Elizalde DO Attending Provider Active Start: August 23, 2024 End: August 23, 2024 Dr. Laurie Elizalde DO Emergency Provider Active Start: August 23, 2024 End: August 23, 2024 Team Status: Inactive Member Role Status Dates Dr. Kristal Sullivan MD Primary Care Provider Active Start: August 31, 2024 End: August 31, 2024 Dr. Kristal Sullivan MD Referring Provider Active Start: August 31, 2024 End: August 31, 2024 Dr. Bao Angulo DO Attending Provider Active Start: August 31, 2024 End: August 31, 2024 Team Status: Active Member Role Status Dates Dr. Kristal Sullivan MD Primary Care Provider Active Start: August 31, 2024 Dr. Kristal Sullivan MD Referring Provider Active Start: August 31, 2024 Dr. Bao Angulo DO Attending Provider Active Start: August 31, 2024 Dr. Bao Angulo DO Other Provider Active St art: August 31, 2024 Team Status: Inactive Member Role Status Dates Dr. Kristal Sullivan MD Primary Care Provider Active Start: August 31, 2024 End: August 31, 2024 Dr. Kristal Sullivan MD Referring Provider Active Start: August 31, 2024 End: August 31, 2024 Lorraine Browne OCCUPATIONAL THERAPY INSTRUCTOR, OCCUPATIONAL THERAPY INSTRUCTOR-C Attending Provider Active Start: August 31, 2024 End: August 31, 2024 Team Status: Inactive Member Role Status Dates Dr. Kristal Sullivan MD Primary Care Provider Active Start: September 07, 2024 End: September 07, 2024 Dr. Kristal Sullivan MD Referring Provider Active Start: September 07, 2024 End: September 07, 2024 RAVINDER Sloan Attending Provider Active Start: September 07, 2024 End: September 07, 2024 Wad Impregnator Relationship Specialty Start Date End Date Kristal Sullivan MD [address] [facility] [place] [address] PCP - General Internal Medicine 11/17/14 Reid Ko MD [address] [facility] [place] [address] [facility] 12/08/19 Reid Ko MD [address] [facility], [place] [address] [facility] Endocrinology 01/11/20 Bnita Oneil APRN.CNP [address] [facility] [place] [address] [employer] Internal Medicine 03/07/24 [facility] 09/14/19 Team Status: Inactive Member Role Status Dates Dr. Kristal Sullivan MD Primary Care Provider Active Start: September 16, 2024 End: September 16, 2024 RAVINDER Sloan Attending Provider Active Start: September 16, 2024 End: September 16, 2024 RAVINDER Sloan Referring Provider Active Start: September 16, 2024 End: September 16, 2024 Wad Impregnator Relationship Specialty Start Date End Date Kristal Sullivan MD [address] [facility] [place] [address] PCP - General Internal Medicine 11/17/14 Reid Ko MD [address] [facility], [place] [address] [facility] Endocrinology 12/08/19 Reid Ko MD [address] [place] [address] [facility] Endocrinology 01/11/20 Binta Oneil APRN.MEDICAL LABORATORY SPECIALIST [address] [place] [address] [employer] Internal Medicine 03/07/24 [facility] 09/14/19 Wad Impregnator Relationship Specialty Start Date End Date Kristal Sullivan MD [address] [place] [address] PCP - General Internal Medicine 11/17/14 Reid Ko MD [address] [place] [address] Track Announcer Endocrinology 12/08/19 Reid Ko MD [address] [place] [address] Track Announcer Endocrinology 01/11/20 Binta Oneil APRN.MEDICAL LABORATORY SPECIALIST [address] [place] [address] [employer] Pusher Internal Medicine 03/07/24 [facility] 09/14/19 Wad Impregnator Relationship Specialty Start Date End Date Kristal Sullivan MD [address] [place] [address] PCP - General Internal Medicine 11/17/14 Reid Ko MD [address] [place] [address] Track Announcer Endocrinology 12/08/19 Reid Ko MD [address] [place] [address] Track Announcer Endocrinology 01/11/20 ClariceBintaAPRN.MEDICAL LABORATORY SPECIALIST [address] [place] [address] [employer] Internal Medicine 03/07/24 [facility] 09/14/19 Reason for Visit (unrecogniz ed section and content) Reason Comments Nutrition Assessment Patient Education Specialty Diagnoses / Procedures Referred By Contac t Referred To Contact TRANSPLANT Diagnoses CKD (chronic kidney disease) stage 5, GFR less than 15 ml/min (HCC) Hypertension, unspecified type Procedures CONSULT TO [facility] OFFICE/OUTPATIENT NEW HIGH MDM 60 MINUTES CHEST X-RAY, FRONT&LAT ECG ROUTINE ECG W/LEAST 12 LDS TRCG ONLY W/O I&R CT ANGIOGRAPHY CHEST W/CONTRAST/NONCONTRAST CT ABDOMEN W & W/O CONTRAST Ronen Eldridge MD [address] [id number] [place] [address] Referral ID Status Reason Start Date Expiration Date Visits Requested Visits Authorized [id number] Authorized Financial Clearance Required - OON Payor Patient Cleared - INN Insurance Found 07/29/2023 07/28/2028 99 [phone] Reason Comments Patient Question Reason Comments Follow Up diabetes and refills Reason Comments Results Reason Comments Follow Up 1 month follow up-ad ipex Reason Comments Weight Check Refill Adipex Reason Comments Referral - Kidney Txp Reason Comments Appointment Reason Comments Missed Appointment Reason Comments Patient Education Specialty Diagnoses / Procedures Referred By Contac t Referred To Contact TRANSPLANT Diagnoses CKD (chronic kidney disease) stage 5, GFR less than 15 ml/min (HCC) Hypertension, unspecified type Procedures CONSULT TO [facility] OFFICE/OUTPATIENT NEW HIGH MDM 60 MINUTES CHEST X-RAY, FRONT&LAT ECG ROUTINE ECG W/LEAST 12 LDS TRCG ONLY W/O I&R CT ANGIOGRAPHY CHEST W/CONTRAST/NONCONTRAST CT ABDOMEN W & W/O CONTRAST Ronen Eldridge MD [address] [place] [address] [facility] [facility] Norm [address] [place] [address] Specialty Diagnoses / Procedures Referred By Contac t Referred To Contact CT IMAGING Diagnoses Chronic renal failure, stage 4 (severe) (HCC) Pre-transplant evaluation for kidney and pancreas transplant Procedures CT ABD/PEL WO IVCON CT ABD & PELVIS W/O CONTRAST Kim Chung PA-C [address] [place] [address] [address] [place] [address] Referral ID Status Reason Start Date Expiration Date V isits Requested Visits Authorized [id number] Closed Auto-Generated Referral Patient Cleared - INN Insurance Found 08/14/2023 10/13/2023 1 1 Reason Comments Clinical Update Reason Comments Patient Update Reason Comments Radiology NM Specialty Diagnoses / Procedures Referred By Martyac t Referred To Contact MOLECULAR & FUNCTIONAL IMAGING Diagnoses Encounter for other preprocedural examination Procedures NM CARDIAC PERF STRESS/PHARM MYOCARDIAL SPECT MULTIPLE STUDIES Ronen Eldridge MD [address] [id number] Molecular & Functional Imaging [address] [place] [address] Referral ID Status Reason Start Date Expiration Date Visits Requested Visits Authorized [id number] Pending Review Auto-Genera sharan Referral Patient Cleared - Admin/Chair man/Directo r advise to proceed or did not respond 4 03/11/2025 3 3 Reason Comments Follow Up Reason Onset Date Comments Diabetes 05/21/2024 Reason Comments Physical Reason Comments Forms BMV Request for Stat ement of Physician Reason Comments approval note Reason Comments abo verification Reason Comments listed phone call Reason Comments ED/RECENT ADMIT FOLLOW UP Reason Comments F/U 3 Month Reason Comments Appointments Reminder Specialty Diagnoses / Procedures Referred By Contac t Referred To Contact TRANSPLANT Diagnoses Organ transplant candidate ESRD on dialysis (HCC) Pre-transplant evaluation for ESRD (end stage renal disease) Pre-operative cardiovascular examination Procedures CONSULT TO [facility] CENTER OFFICE/OUTPATIENT NEW HIGH MDM 60 MINUTES CHEST X-RAY, FRONT&LAT ECG ROUTINE ECG W/LEAST 12 LDS TRCG ONLY W/O I&R CT ANGIOGRAPHY CHEST W/CONTRAST/NONCONTRAST CT ABDOMEN W & W/O CONTRAST Ronen Eldridge MD [address] [place] [address] Phone: tel: fax: [facility] [address] [place] [address] Phone: tel: Referral ID Status Reason Start Date Expiration Date Visits Requested Visits Authorized [id number] Authorized Financial Clearance Required - OON Payor Patient Cleared - INN Insurance Found 10/12/2024 10/12/[phone] (unrecognized sect ion and content) No Status Records FoundNo Status Records FoundNo Status Records FoundNo Status Records Found INFORMATION SOURCE (unrecogn ized section and content) DATE CREATED AUTHOR 12/25/2023 [facility] DATE CREATED AUTHOR AUTHOR'S ORGANIZ ATION 09/22/2024 [facility] DATE CREATED AUTHOR AUTHOR'S ORGANIZ ATION 10/10/2024 [facility] DATE CREATED AUTHOR AUTHOR'S ORGANIZ ATION 10/17/2024 [facility] Scheduled Active and Recently Administ ered Medications (unrecognized section and content) Medication Order 08/26/2024 08/27/2024 08/28/2024 amLODIPine (Norvasc) tablet 10 mg 10 mg, Oral, Daily, First dose on Fri08/23/24 at 1200 0845 (Given - Provider: Silva Rodriguez LPN) 0831 (Given - Provider: Mike Lopez RN) 0943 (Given - Provider: Markus Pabon RN) aspirin EC tablet 81 mg 81 mg, Oral, Daily, First dose on Fri08/24/24 at 1430, Do not crush, chew, or split. 0845 (Given - Provider: Silva Rodriguez LPN) 0831 (Given - Provider: Mike Lopez RN) 0943 (Given - Provider: Markus Pabon RN) carvedilol (Coreg) tablet 12.5 mg (CANCELED) 12.5 mg, Oral, 2 times daily with meals, First dose on Fri08/26/24 at 0845 0849 (Given - Provider: Silva Rodriguez LPN)1728 (Given - Provider: Silva Rodriguez LPN) 0831 (Given - Provider: Mike Lopez RN) carvedilol (Coreg) tablet 25 mg 25 mg, Oral, 2 times daily with meals, First dose (after last modification) on Fri08/27/24 at 1700 1746 (Given - Provider: Mike Lopez RN) 0943 (Given - Provider: Markus Pabon, KANDACE) ceFAZolin (Ancef) 1,000 mg in sodium chloride 0.9 % 50 mL IVPB 1,000 mg, IntraVENous, at 100 mL/hr, Administer over 30 Minutes, Every 24 hours, First dose (after last modification) on Fri08/24/24 at 1400, When scheduled dose falls on a dialysis day, administer after dialysis Dosage or interval has been adjusted per [facility] Renal Dosing policy. Mini-Bag Plus bag, Suspected Indication (Select all that apply): Sepsis of Unknown Etiology 1430 (New Bag - Provider: Silva Rodriguez LPN)1501 (Stopped - Provider: Silva Rodriguez LPN) 1648 (New Bag - Provider: Caitlyn Ashby RN)1738 (Stopped - Provider: Mike Lopez RN) 1400 (Canceled Entry - Provider: Automatic Discharge Provider - Comment: Automatically canceled at discontinue of medication order) clopidogrel (Plavix) tablet 75 mg 75 mg, Oral, Daily, First dose on Fri08/24/24 at 1430 0846 (Given - Provider: Silva Rodriguez LPN) 0831 (Given - Provider: Mike Lopez RN) 0943 (Given - Provider: Markus Pabon RN) heparin injection 5,000 Units 5,000 Units, SubCUTAneous, Every 8 hours scheduled (3 times per day), First dose on Fri08/23/24 at 1400 0552 (Given - Provider: Cezar Monique RN)1430 (Given - Provider: Silva Rodriguez LPN)2220 (Given - Provider: Alfred Tavarez RN) 0643 (Given - Provider: Alfred Tavarez RN)1322 (Not Given - Provider: Mike Lopez RN - Reason: Patient/family refused)2135 (Given - Provider: Lara Prescott RN) 0531 (Not Given - Provider: Lara Prescott RN - Reason: Patient/family refused)1400 (Canceled Entry - Provider: Automatic Discharge Provider - Comment: Automatically canceled at discontinue of medication order) insulin glargine (Lantus) injection 45 Units 45 Units, SubCUTAneous, Nightly, First dose (after last modification) on Fri08/27/24 at 2100 2135 (Given - Provider: Lara Prescott RN) insulin glargine (Lantus) injection 50 Units (CANCELED) 50 Units, SubCUTAneous, Nightly, First dose (after last modification) on Fri08/25/24 at 2100 2220 (Given - Provider: Alfred Tavarez RN) Insulin Lispro (Humalog) injection 0-10 Units 0-10 Units, SubCUTAneous, 3 times daily with meals, First dose (after last modification) on Fri08/25/24 at 1700, Give 1 unit of insulin for every 15 grams of carbohydrates patient eats. Patient must be able to count the grams of carbs. RN is to verify and divide the total grams of carbs by 15 to determine the dose (in units) of insulin. Round decimal points 0-0.4 down and 0.5-0.9 up. 0846 (Given - Provider: Silva Rodriguez LPN)1128 (Given - Provider: Silva Rodriguez LPN)1729 (Given - Provider: Silva Rodriguez LPN) 0833 (Not Given - Provider: Mike Lopez RN - Reason: Order parameters not met)1203 (Given - Provider: Mike Lopez RN)1746 (Given - Provider: Mike Lopez RN) 0948 (Given - Provider: Markus Pabon RN)1214 (Given - Provider: Markus Pabon RN) Insulin Lispro (Humalog) injection 0-12 Units(Linked Group 1) 0-12 Units, SubCUTAneous, 3 times daily with meals, First dose on Fri08/26/24 at 1200, Medium Dose Correction Algorithm Glucose: Dose: LESS than 150 No Insulin 150-199 2 Units 200-249 4 Units 250-299 6 Units 300-349 8 Units 350-400 10 Units Above 400 12 Units 1129 (Given - Provider: Silva Rodriguez LPN)1729 (Given - Provider: Silva Rodriguez LPN) 0832 (Not Given - Provider: Mike Lopez RN - Reason: Order parameters not met)1204 (Not Given - Provider: Mike Lopez RN - Reason: Other - Comment: already covered with 6 units)1747 (Not Given - Provider: Mike Lopez RN - Reason: Other - Comment: treated with 4 units) 0948 (Given - Provider: Markus Pabon RN)1214 (Given - Provider: Markus Pabon RN) Insulin Lispro (Humalog) injection 0-12 Units(Linked Group 1) 0-12 Units, SubCUTAneous, Nightly, First dose on Fri08/26/24 at 2100, If eating or bolus tube feeding: Medium Dose Correction Algorithm Glucose: Dose: LESS than 150 No Insulin 150-199 2 Units 200-249 4 Units 250-299 6 Units 300-349 8 Units 350-400 10 Units Above 400 12 Units 2220 (Given - Provider: Alfred Tavarez RN) 2135 (Given - Provider: Lara Prescott, KANDACE) Insulin Lispro (Humalog) injection 0-6 Units (CANCELED)(Linked Group 2) 0-6 Units, SubCUTAneous, 3 times daily with meals, First dose on Fri08/25/24 at 0800, Low Dose Correction Algorithm Glucose: Dose: LESS than 150 No Insulin 150-199 1 Unit 200-249 2 Units 250-299 3 Units 300-349 4 Units 350-400 5 Units Above 400 6 Units 0846 (Given - Provider: Silva Rodriguez LPN) methyl salicylate-menthol (Bengay) 10-15 % greaseless cream Topical, Daily, First dose on Fri08/27/24 at 0600 0643 (Given - Provider: Alfred Tavarez RN) 0531 (Not Given - Provider: Lara Prescott RN - Reason: Patient/family refused) pantoprazole (ProtoNix) EC tablet 40 mg 40 mg, Oral, Daily before breakfast, First dose on Fri08/24/24 at 0600, Do not crush, chew, or split. 0552 (Given - Provider: Cezar Monique, KANDACE) 0643 (Given - Provider: Alfred Tavarez, RN) 0531 (Given - Provider: Lara Prescott, RN) rosuvastatin (Crestor) tablet 20 mg 20 mg, Oral, Nightly, First dose on Fri08/23/24 at 2100 2220 (Given - Provider: Alfred Tavarez, RN) 2011 (Given - Provider: Lara Prescott RN) PRN Medication Order 08/26/2024 08/27/2024 08/28/2024 acetaminophen (Tylenol) tablet 500 mg 500 mg, Oral, Every 6 hours PRN, mild pain (1-3), Starting on Fri08/25/24 at 2308, Maximum dose of acetaminophen is 4000 mg from all sources in 24 hours. calcium carbonate (Tums) chewable tablet 500 mg 500 mg, Oral, Daily PRN, indigestion, heartburn, Starting on Fri08/25/24 at 1004 dextrose 5 % infusion 100 mL/hr, IntraVENous, PRN, Blood sugar less than 70mg/dL, Starting on Fri08/24/24 at 1139, Start infusion following administration of dextrose 50% or glucagon. dextrose 50 % solution 12.5 g 12.5 g, IntraVENous, PRN, low blood sugar, Blood glucose less than 70 mg/dL and patient NOT ALERT or NPO., Starting on Fri08/24/24 at 1139, If patient does not respond within 5 minutes, repeat dose x1. Start D5W at 100 mL/hour until ordering provider can be reached. Repeat blood glucose in 15 minutes. If blood glucose is less than 70 mg/dL, repeat treatment and recheck blood glucose in 15 minutes x2. If using Glucostabilizer, dose as instructed per system. diphenhydrAMINE-zinc acetate (BENADryl) cream Topical, 3 times daily PRN, itching, Starting on Elvira 08/26/24 at 1434 1536 (Given - Provider: Silva Rodriguez LPN) glucagon (human recombinant) injection 1 mg 1 mg, IntraMUSCular, PRN, low blood sugar, Blood glucose less than 70 mg/dL and patient NOT ALERT or NPO and does not have IV access., Starting on Fri08/24/24 at 1139, After administration, attempt intravenous access and start D5W at 100 mL/hr. Repeat blood glucose in 15 minutes x2 and notify provider. glucose oral gel 15 g 15 g, Oral, As needed, low blood sugar, Starting on Fri08/24/24 at 1139, If blood glucose less than 50 mg/dL and patient ALERT and NOT NPO, give 2 tubes glucose gel. If blood glucose less than 70 mg/dL and patient ALERT and NOT NPO, give 1 tube glucose gel. Repeat blood glucose in 15 minutes. If blood glucose is less than 70 mg/dL, repeat treatment and recheck blood glucose in 15 minutes x2 and notify provider. heparin injection 1,600 Units 1,600 Units, IntraCATHeter, As needed, line care, Starting on Fri08/23/24 at 2158 Lidocaine 4 % patch 1 patch 1 patch, TransDERmal, Administer over 12 Hours, Daily PRN, for right shoulder pain, Starting on Fri08/23/24 at 1751, Apply patch to right shoulder blade. Patch may remain in place for up to 12 hours in any 24 hour period. melatonin tablet 3 mg (COMPLETED) 3 mg, Oral, Once PRN, sleep, Starting on Fri08/27/24 at 2010, For 1 dose 2134 (Given - Provider: Lara Prescott RN) ondansetron (Zofran) injection 4 mg(Linked Group 3) 4 mg, IntraVENous, Every 6 hours PRN, nausea, vomiting, Starting on Fri08/23/24 at 1152, 1st Line. Give IV if patient is unable to take orally. If inadequate response within 60 minutes, proceed to next-line agent or contact provider if no further options ordered. ondansetron ODT (Zofran-ODT) disintegrating tablet 4 mg(Linked Group 3) 4 mg, Oral, Every 8 hours PRN, nausea, vomiting, Starting on Fri08/23/24 at 1152, 1st Line. If inadequate response within 60 minutes, proceed to next-line agent or contact provider if no further options ordered. Patient should allow tablet to dissolve on tongue. Do not remove from blister pack until just before administering. polyethylene glycol (PEG) 3350 (Miralax) packet 17 g 17 g, Oral, Daily PRN, constipation, Starting on Fri08/23/24 at 1152, 1st line for treatment of constipation - give scheduled if no bowel movement in past 24 hours. prochlorperazine (Compazine) injection 10 mg(Linked Group 4) 10 mg, IntraVENous, Every 6 hours PRN, nausea, vomiting, Starting on Fri08/24/24 at 0809, Give IV if patient is unable to take orally. Give IM if patient is unable to take orally and does not have IV access. prochlorperazine (Compazine) suppository 25 mg(Linked Group 4) 25 mg, Rectal, Every 12 hours PRN, nausea, vomiting, Starting on Fri08/24/24 at 0809, Give KS if patient is unable to take orally or receive by injection. prochlorperazine (Compazine) tablet 10 mg(Linked Group 4) 10 mg, Oral, Every 6 hours PRN, nausea, vomiting, Starting on Fri08/24/24 at 0809 Linked Groups Order Group 1: Insulin Lispro (Humalog) injection 0-12 UnitsJump to med 0-12 Units, SubCUTAneous, 3 times daily with meals, First dose on Fri08/26/24 at 1200, Medium Dose Correction Algorithm Glucose: Dose: LESS than 150 No Insulin 150-199 2 Units 200-249 4 Units 250-299 6 Units 300-349 8 Units 350-400 10 Units Above 400 12 Units And Insulin Lispro (Humalog) injection 0-12 UnitsJump to med 0-12 Units, SubCUTAneous, Nightly, First dose on Fri08/26/24 at 2100, If eating or bolus tube feeding: Medium Dose Correction Algorithm Glucose: Dose: LESS than 150 No Insulin 150-199 2 Units 200-249 4 Units 250-299 6 Units 300-349 8 Units 350- 400 10 Units Above 400 12 Units Group 2: Insulin Lispro (Humalog) injection 0-6 Units (CANCELED)Jump to med 0-6 Units, SubCUTAneous, 3 times daily with meals, First dose on Fri08/25/24 at 0800, Low Dose Correction Algorithm Glucose: Dose: LESS than 150 No Insulin 150- 199 1 Unit 200-249 2 Units 250-299 3 Units 300-349 4 Units 350-400 5 Units Above 400 6 Units And Insulin Lispro (Humalog) injection 0-6 Units (CANCELED) 0-6 Units, SubCUTAneous, Nightly, First dose on Fri08/25/24 at 2100, If eating or bolus tube feeding: Low Dose Correction Algorithm Glucose: Dose: LESS than 150 No Insulin 150-199 1 Unit 200-249 2 Units 250-299 3 Units 300-349 4 Units 350-400 5 Units Above 400 6 Units Group 3: ondansetron ODT (Zofran-ODT) disintegrating tablet 4 mgJump to med 4 mg, Oral, Every 8 hours PRN, nausea, vomiting, Starting on Fri08/23/24 at 1152, 1st Line. If inadequate response within 60 minutes, proceed to next-line agent or contact provider if no further options ordered. Patient should allow tablet to dissolve on tongue. Do not remove from blister pack until just before administering. Or ondansetron (Zofran) injection 4 mgJump to med 4 mg, IntraVENous, Every 6 hours PRN, nausea, vomiting, Starting on Fri08/23/24 at 1152, 1st Line. Give IV if patient is unable to take orally. If inadequate response within 60 minutes, proceed to next-line agent or contact provider if no further options ordered. Group 4: prochlorperazine (Compazine) tablet 10 mgJump to med 10 mg, Oral, Every 6 hours PRN, nausea, vomiting, Starting on Fri08/24/24 at 0809 Or prochlorperazine (Compazine) injection 10 mgJump to med 10 mg, IntraVENous, Every 6 hours PRN, nausea, vomiting, Starting on Fri08/24/24 at 0809, Give IV if patient is unable to take orally. Give IM if patient is unable to take orally and does not have IV access. Or prochlorperazine (Compazine) suppository 25 mgJump to med 25 mg, Rectal, Every 12 hours PRN, nausea, vomiting, Starting on Fri08/24/24 at 0809, Give KS if patient is unable to take orally or receive by injection. FOR RECORDS PERTAINING TO PATIENTS WHO ARE [...] BE BASED ON THE PRIMARY CLINICAL RECORDS. [facility]. provides no warranty or guarantee of the accuracy or completeness of information in this document.
--- OUTSIDE RECORDS SUMMARY | 2024-10-19 03:43 | XMS RPT_ITS | CCD ---
Author Organization [facility] Care Team Providers Care Dumpster Operator Name Role Phone Dr. Kristal Sullivan Primary [...] Unavailable Sebastianbow PA-C, Vicki L Unavailable Older PAPER GRADER.SPRIGGER, Binta Unavailable Regi PA-C, Basia Unavailable Denbow [...] Provider Dr. Kristi Murillo DO Attending Provider Dr. Kristi Murillo DO Emergency Provider Dr. [...] London DO Other Provider Rodo LACEY, Dr. Myres Attending Provider Emily LACEY, Dr. Villa Other Provider Rodo ALCEY, Dr. Myers Other Provider Radha LACEY, Dr. Spence Attending Provider Elmer MUSA-CKalina Attending Provider Dr. Kristal Sullivan MD Primary Care Provider Thalia Gerardo Attending Provider Dr. Kristal Sullivan MD Referring Provider Dr. Laurie Elizalde DO Emergency Provider Kristal Sullivan MD Primary Care Provider Dr. Laurie Elizalde DO Attending Provider Dr. Bao Angulo DO Attending Provider Dr. Bao Angulo DO Other Provider Pavan MUSA-CLorraine Attending Provider [phone] NONE, PCP Referring Unavailable GANTA, KRISTAL Primary [...] Unavailable Ganta, Kristal Primary Care Unavailable Laurie Elizlade Attending Unavailable Ganta, Kristal Primary Care Unavailable EmilyKit greens Attending Unavailable FriendBao Attending Unavailable Ganta, Kristal Primary Care Unavailable Care Physician, No Primary Primary Care Unava ilable Kendra Pierce Attending Unavailable Care Physician, No Primary Referring Unava ilable Garrison Joaquin Attending Unavailable Rory, Garrison Attending Unavailable Cordova, Garrison Referring Unavailable Ganta, Kristal Primary Care Unavailable Bao Angulo Attending Unavailable Ganta, Kristal Primary Care Unavailable Louis Koehler Attending Unavailable Eugenia London Admitting Unavailable Eugenia London Consulting Unavailable Emily, Jayaprakas Consulting Unavailable Rodo, Louis Consulting Unavailable Radha, Scarville Attending Unavailable Cordova, Garrison Consulting Unavailable Cordova, Garrison Attending Unavailable Ganta, Kristal Primary Care Unavailable Cordova, Garrison Referring Unavailable Cordova, Garrison Consulting Unavailable Rory, Garrison Referring Unavailable Cordova, Garrison Attending Unavailable Ganta, Kristal Primary Care [...] Referring Unavailable Ganta, Kristal Primary Care Unavailable Klaina Payne Attending Unavailable Ganta, Kristal Referring Unavailable [...] Consulting Unavailable Steve Napoles Consulting Unavailable Radha, Scarville Consulting Unavailable Kendall, Aris Consulting Unavailable Belal, Farouk Consulting Unavailable Lio Cross Consulting Unavailable Wilfredo Andrade Consulting UnavailKellie Nathanatore Consulting Unavailable Nisa TRIAGE SPECIALISTRomero Consulting Unavailable Lorraine Browne NP Consulting Unavailable [...] Care Unavailable POGGIO, RONEN D Referring Unavailable [facility] Primary Care Unavailable POGGIO, RONEN D Referring Unavailable [facility] Primary Care Unavailable POGGIO, RONEN D Referring Unavailable [facility] Primary Care Unavailable POGGIO, RONEN D Referring Unavailable [facility] Primary Care [facility] Attending Unavailable [facility] Primary Care Unavailable [facility], KRISTAL Referring Unavailable [facility] Primary Care Unavailable DUSTIN BEARD Referring Unavailable [facility] Primary [facility] Unavailable Allergies Allergy Classification Reported Allergen(s) Allergy Type Date of Onset Reaction(s) Facility (20 sources) Seasonal allergy; Translations: [SEASONAL ALLERGIES] Allergy to substance 11-17-2014 Intolerance [facility] Work Phone: Medications Current Medications Medication [...] 25, 2024 10:55am Blood-Glucose Meter,Continuous ([employer]) misc (18 sources) Start: 04-01-2024 Blood-Glucose Meter,Continuous ([employer]) misc Active 0 .Route April 01, 2024 11:49am As directed Start: 10-08-2021 End: 04-01-2024 Blood-Glucose Meter,Continuo us ([employer]) misc Discontinued 0 .Route October 08, 2021 12:00am April 01, 2024 11:50am As directed Start: 10-08-2021 Blood-Glucose Meter,Continuous ([employer]) misc Active 0 .Route October 07, 2021 11:00pm As directed Start: 10-08-2021 Blood-Glucose Meter,Continuous ([employer]) misc Active 0 .Route October 08, 2021 [...] 08, 2021 12:00am 1 q 90 days Blood-Glucose,[employer],Cont ([employer]) misc (14 sources) Start: 04-01-2024 Blood-Glucose,[employer],Cont ([employer]) misc Active 0 .Route April 01, 2024 11:49am As directed Start: 10-08-2021 End: 04-01-2024 Blood-Glucose,[employer],Cont ([employer] G[employer]) misc Discontinued 0 .Route 1 October 08, [...] Comment on above: Take 1 capsule by [facility] once daily. clopidogrel 75 mg oral [...] DRINK 1 BOTTLE (237ML) twice a day 92991 mL 5 12/01/2020 Active Start: 07-17-2018 End: 12-01-2020 Nut.Tx.Gluc.Intol,Lac-Free,S oy (GLUCERNA SHAKE) liqd DRINK 1 BOTTLE (237ML) twice a day 59015 mL 5 07/17/2018 12/01/2020 Discontinued Comment on [...] day with meals. 05/24/2024 05/19/2025 Active Zn Iehlgse-Mxwmyczcdfa-Xzy (AMERIGEL) gel (20 sources) Start: 03-05-2017 Zn Mabtwyd-Hdzntcreeho-Ltc (AMERIGEL) gel Apply 1 application to affected [...] Comment on above: Take 4 tablets by [facility] as needed. 1 ml heparin sodium, [...] intravenously every six hours polyethylene glycol 3350 61960 mg powder for oral solution (2 sources) [...] source) Long-term current use of insulin; Translations: [[facility] (current) use of insulin] 06-15-2024 Episodic Other [...] Test Name Value Interpretation Reference Range Facility [facility] 10-06-2024 [facility] Telephone (TXCTGL) LAURIE GONZALES ([id number]) 1980 M Date Time Provider Department 10/06/24 KIDNEY TXP [facility] During your visit today, we recorded the following information about you: Sindy Alonzo 10/06/2024 11:10 AM Signed Spoke with patient to confirm scheduled waitlist kidney transplant re-evaluation for next week. Did they receive their schedule? Yes [facility] - Yes [...] AFFECTED AREA FIVE TIMES DAILY - Insulin [place], Disposable, (BD ULTRA-FINE CAROL PEN NEEDLE) 32 gauge x 5/32 ndle Use one needle for each dose. 7/day. - Zn Acetate-Meadowsweet- Ethel (AMERIGEL) gel Apply 1 application to affected [...] Status:Closed by SINDY ALONZO on 10/06/24 Normal [facility] Hemoglobinon 09-29-2024 Hemoglobin (Bld) [Mass/Vol] 10.4 g/dL Low 13.0-16. 5 [facility] Comment on above: Performed By: #### L 100.1300 ####[facility] [id number] [place], [place], [id number] BLOOD TB SCREENon 09-21-2024 M. tuberculosis tuberculin stim IFN-g Ql (Bld) Negative Normal [facility] Comment on above: Order Comment: Bam merritt Type: BLOOD SPECIMENOrdering Facility: [facility] Address: [address] [place] [address] Performed By: #### I NFTBP ####[facility] [id number] [place] [address] [place] MITOGEN MINUS NIL >9.99 Normal >=0.50 [facility] Comment on above: Order Comment: Bam merritt Type: BLOOD SPECIMENOrdering Facility: [facility] Address: [address] [place] [address] Performed By: #### I NFTBP ####[facility] [id number] [place] [address] [place] TB GAMMA INTERPRETATION Infection with M . tuberculosis complex is unlikely. If latent tuberculosis infection is highly suspected, a negative result does not rule out the infection. Specimens from immunocompromised patients and those <5 years of age may show false negative results. In case of a contact investigation, please repeat 8-12 weeks after a known exposure. Normal [facility] Comment on above: Order Comment: Speci men Type: BLOOD SPECIMENOrdering Facility: [facility] Address: [address] [place] [address] Performed By: #### I NFTBP ####[facility] [id number] [place] [address] [place] TB NIL 0.01 IU/mL Normal <=8.00 [facility] Comment on above: Order Comment: Speci men Type: BLOOD SPECIMENOrdering Facility: [facility] Address: [address] [place] [address] Performed By: #### I NFTBP ####[facility] [id number] [place] [address] [place] TB1 AG MINUS NIL 0.01 IU/mL Normal <0.35 [facility] Comment on above: Order Comment: Speci men Type: BLOOD SPECIMENOrdering Facility: [facility] Address: [address] [place] [address] Performed By: #### I NFTBP ####[facility] [id number] [place] [address] [place] TB2 AG MINUS NIL 0.00 IU/mL Normal <0.35 [facility] Comment on above: Order Comment: Speci men Type: BLOOD SPECIMENOrdering Facility: [facility] Address: [address] [place] [address] Performed By: #### I NFTBP ####[facility] [id number] [place] [address] [place] CMV IgG Qnon 09-21-2024 CMV IGG QUAL Negative Normal Negative [facility] Comment on above: Order Comment: Speci men Type: BLOOD SPECIMEN [facility] Address: [address] [place] [address] Result Comment: No s erological evidence of past exposure to Cytomegalovirus. Cannot exclude recent infection if the specimen collected within 4-6 weeks after infection. Performed By: #### 2 4331-1, 3016-3, 52793-6 #### [facility] CLIA [id number] [address] [place] [address] [place] CMV IgG SerPl-aCncon 025 CMV IgG Qn <0.20 Normal [facility] Comment on above: Order Comment: Speci men Type: BLOOD SPECIMEN [facility] Address: [address] [place] [address] Result Comment: The magnitude of the measured result is not indicative of the amount of antibody present. U/mL values are interpreted as follows: Negative <0.6 Equivocal 0.6 to <0.70 Positive >=0.70 Performed By: #### 2 4331-1, 3016-3, 33707-8 #### [facility] CLIA [id number] [address] [place] [address] OF [facility] CNOVon 09-21-2024 CNOV Office Visit (INTMWS) LAURIE GONZALES ([id number]) 1980 M Date Time Provider Department 09/21/24 11:40 AM KRISTAL SULLIVAN INTMWS During your visit today, we recorded the following information about you: Pulse Respiration Blood pressure Weight 82/minute 16/minute 135/80 89.4 kg Kristal Sullivan MD 09/21/2024 12:20 PM Addendum We discussed your recent health concerns and ongoing care: - Dialysis and Fistula Use: - You are currently undergoing dialysis at [facility] on Friday, Friday, and Friday. - Your [...] You recently underwent an endoscopy with your hand i tube bender, Dr. Andres Angulo. A stricture in your [...] ordered by the transplant team at the [facility]. You can complete this testing locally [...] - Your next phone appointment with the [facility] transplant team is scheduled for September 04. You will also have an in-person appointment at the [facility] on September 21. - Complete the ordered blood work at our facility before your transplant appointments. - Continue attending dialysis sessions as scheduled and notify your brine plant operator, Dr. Mckeon, or his nurse if you [...] a 44-year-old male with a history of LA, CKD on dialysis, and dysphagia, presenting for follow-up after a recent hospitalization for a port infection. Laurie was hospitalized on the for a port infection related to his dialysis. He initially presented to the ED with emesis and a fever of 103 degreeF, and was subsequently transferred to [place], where he was admitted for a week. The infection necessitated the removal of his port. He is currently on IV antibiotics, with his last dose scheduled for this Friday. During his hospitalization, he was evaluated by a hand i tube bender due to dysphagia. An endoscopy revealed a stricture, which was dilated, and biopsies were taken from erythematous areas, all of which returned negative results. Laurie has a functioning AV fistula in his left forearm, which has been in place since January 04 of last year. He is currently undergoing dialysis at [facility] on Mondays, Wednesdays, and Fridays. He reports being contacted by the [facility] as a backup for a pancreas transplant and is hopeful to return to work soon. Laurie was previously employed part-time at [employer] but was let go due to multiple surgeries and his current medical condition. He has since been approved for Social Security but had to wait five months without income before receiving benefits. He is not eligible for unemployment due to his part-time status. He is under the care of brine plant operator Dr. Mckeon, whom he has seen twice. Most of his interactions are with Dr. Mckeon's nurse at [facility], whom he describes as super nice. Laurie has a phone appointment with the transplant center at the [facility] on September 04 and an in-person appointment on the . He is also using an insulin pump for diabetes management. Social History Tobacco Use Smoking status: Never Smokeless tobacco: Never Substance Use Topics Alcohol use: No Drug use: No Past medical history, appointments, medications, allergies reviewed. Pertine (more content not included)... Normal [facility] DRUG SCREEN 9 PANEL, SERUM O R PLASMAon 09-21-2024 AMPHETAMINES, S/P, SCREEN Negative Normal [facility] Comment on above: Order Comment: Speci men Type: BLOOD SPECIMEN [facility] Address: [address] [place] [address] Result Comment: Pres umptively Negative by immunoassay. Testing by mass spectrometry is available on request. Interpretive Information: Amphetamines Screen, S/P Methodology: Immunoassay Positive Cutoff: 20 ng/mL Performed By: #### 2 4331-1, 3016-3, 25034-0 #### [facility] CLIA [id number] [address] [place] [address] [place] BARBITURATES, S/P, SCREEN Negative Normal [facility] Comment on above: Order Comment: Speci men Type: BLOOD SPECIMEN [facility] Address: [address] [place] [address] Result Comment: Pres umptively Negative by immunoassay. Testing by mass spectrometry is available on request. Interpretive Information: Barbiturates Screen, S/P Methodology: Immunoassay Positive Cutoff: 50 ng/mL Performed By: #### 2 4331-1, 3016-3, 48112-1 #### [facility] CLIA [id number] [address] [place] [address] [place] BENZODIAZEPINES, S/P, SCREEN Negative Normal [facility] Comment on above: Order Comment: Speci men Type: BLOOD SPECIMEN [facility] Address: [address] [place] [address] Result Comment: Pres umptively Negative by immunoassay. Testing by mass spectrometry is available on request. Interpretive Information: Benzodiazepines Screen, S/P Methodology: Immunoassay Positive Cutoff: 50 ng/mL Performed By: #### 2 4331-1, 3015-3, 15683-2 #### [facility] CLIA [id number] [address] [place] [address] [place] BUPRENORPHINE, S/P, SCREEN Negative Normal [facility] Comment on above: Order Comment: Speci men Type: BLOOD SPECIMEN [facility] Address: [address] [place] [address] Result Comment: Pres umptively Negative by immunoassay. Testing by mass spectrometry is available on request. Interpretive Information: Buprenorphine Screen, S/P Methodology: Immunoassay Positive Cutoff: 1 ng/mL Performed By: #### 2 4331-1, 3016-3, 27277-3 #### [facility] CLIA [id number] [address] [place], [place] [address] [place] CANNABINOIDS, S/P, SCREEN Negative Normal [facility] Comment on above: Order Comment: Speci men Type: BLOOD SPECIMEN [facility] Address: [address] [place] [address] Result Comment: Pres umptively Negative by immunoassay. Testing by mass spectrometry is available on request. Interpretive Information: Carboxy-THC Screen, S/P Methodology: Immunoassay Positive Cutoff: 20 ng/mL This test does not distinguish between the delta-8 and delta-9 forms of Carboxy-THC or their metabolites. Performed By: #### 2 4331-1, 3016-3, 23800-9 #### [facility] CLIA [id number] [address] [place] [address] [place] COCAINE, S/P, SCREEN Negative Normal [facility] Comment on above: Order Comment: Speci men Type: BLOOD SPECIMEN [facility] Address: [address] [place] [address] Result Comment: Pres umptively Negative by immunoassay. Testing by mass spectrometry is available on request. Interpretive Information: Cocaine Screen, S/P Methodology: Immunoassay Positive Cutoff: 20 ng/mL Performed By: #### 2 4331-1, 3016-3, 46595-6 #### [facility] CLIA [id number] [address] [place] [address] [place] DRUG SCREEN COMMENTS, SERUM OR PLASMA See Note Normal [facility] Comment on above: Order Comment: Speci shaina Type: BLOOD SPECIMEN [facility] Address: [address] [place] [address] Result Comment: Inte rpretive Information: Drug Screen [...] developed and its performance characteristics determined by [facility]. It has not been cleared or approved by the [place] Food and Drug Administration. This test was performed in a CLIA certified laboratory and is intended for clinical purposes. Performed By: [facility] [address] [place] [id number] Motorcycle Mechanic Apprentice: Anirudh Coats MD, PhD CLIA Number: [id number] Performed By: #### 2 4331-1, 3015-05, #### [facility] CLIA [id number] [address] [place] [address] [place] METHADONE, S/P, SCREEN Negative Normal [facility] Comment on above: Order Comment: Speci men Type: BLOOD SPECIMEN [facility] Address: [address] [place] [address] Result Comment: Pres umptively Negative by immunoassay. Testing by mass spectrometry is available on request. Interpretive Information: Methadone Screen, S/P Methodology: Immunoassay Positive Cutoff: 25 ng/mL Performed By: #### 2 4331-1, 3015-05, #### [facility] CLIA [id number] [address] [place] [address] [place] METHAMPHETAMINE, S/P, SCREEN Negative Normal [facility] Comment on above: Order Comment: Speci men Type: BLOOD SPECIMEN [facility] Address: [address] [place] [address] Result Comment: Pres umptively Negative by immunoassay. Testing by mass spectrometry is available on request. Interpretive Information: Methamphetamine Screen, S/P Methodology: Immunoassay Positive Cutoff: 20 ng/mL Performed By: #### 2 4331-1, 3015-05, #### [facility] CLIA [id number] [address] [place] [address] [place] OPIATES, S/P, SCREEN Negative Normal [facility] Comment on above: Order Comment: Speci men Type: BLOOD SPECIMEN [facility] Address: [address] [place] [address] Result Comment: Pres umptively Negative by immunoassay. Testing by mass spectrometry is available on request. Interpretive Information: Opiates Screen, S/P Methodology: Immunoassay Positive Cutoff: 20 ng/mL Performed By: #### 2 4331-1, 3015-3, 39698-2 #### [facility] CLIA [id number] [address] [place] [address] [place] OXYCODONE, S/P, SCREEN Negative Normal [facility] Comment on above: Order Comment: Speci men Type: BLOOD SPECIMEN [facility] Address: [address] [place] [address] Result Comment: Pres umptively Negative by immunoassay. Testing by mass spectrometry is available on request. Interpretive Information: Oxycodone/Oxymorphone Screen, S/P Methodology: Immunoassay Positive Cutoff: 20 ng/mL Performed By: #### 2 4331-1, 3, #### [facility] CLIA [id number] [address] [place] [address] [place] PHENCYCLIDINE, S/P, SCREEN Negative Normal [facility] Comment on above: Order Comment: Speci men Type: BLOOD SPECIMEN [facility] Address: [address] [place] [address] Result Comment: Pres umptively Negative by immunoassay. Testing by mass spectrometry is available on request. Interpretive Information: Phencyclidine Screen, S/P Methodology: Immunoassay Positive Cutoff: 10 ng/mL Performed By: #### 2 4331-1, 3, 68595-9 #### [facility] CLIA [id number] [address] [place] [address] [place] EBV capsid IgG Qn (S)on 08-30 EBV VCA IGG, QUAL Positive Abnormal Negative [facility] Comment on above: Order Comment: Speci men Type: BLOOD SPECIMEN [facility] Address: [address] [place] [address] Result Comment: The result suggests recent or past EBV infection. The final interpretation should be done in the context of other EBV serology panel results. Performed By: #### 2 4331-1, 3015-3, #### [facility] CLIA [id number] [address] [place] [address] [place] HBV core Ab Ser Qlon 025 HBV core Ab Ql (S) Negative Normal Negative [facility] Comment on above: Order Comment: Speci men Type: BLOOD SPECIMEN [facility] Address: [address] [place] [address] Result Comment: No e vidence of current or past infection with Hepatitis B virus. Should recent infection be suspected, repeat testing may be considered 3-4 weeks after this draw. Performed By: #### 2 4331-1, 3015-05, #### [facility] CLIA [id number] [address] [place] [address] [place] HBV surface Ab Ql (S)on 08-30 HBV surface Ab Qn (S) 99.55 mIU/mL Normal [facility] Comment on above: Order Comment: Speci men Type: BLOOD SPECIMEN [facility] Address: [address] [place] [address] Result Comment: <8 m IU/mL: No serological evidence of immunity to Hepatitis B Virus. >/= 8 to <12 mIU/mL: No serological evidence of immunity to Hepatitis B Virus. >/= 12 mIU/mL: Consistent with serological evidence of immunity to Hepatitis B Virus. Performed By: #### 2 4331-1, 3015-05, #### [facility] CLIA [id number] [address] [place] [address] [place] HBV surface Ab Ser Qlon 08-30 HBV surface Ab Ql (S) Positive Normal [facility] Comment on above: Order Comment: Speci men Type: BLOOD SPECIMEN [facility] Address: [address] [place] [address] Result Comment: Cons istent with serological evidence of immunity to Hepatitis B Virus. Performed By: #### 2 4331-1, 3015-3, #### [facility] CLIA [id number] [facility] [place] [address] [place] HBV surface Ag Ser Qlon 08-30 HBV surface Ag Ql (S) Negative Normal Negative [facility] Comment on above: Order Comment: Speci men Type: BLOOD SPECIMEN [facility] Address: [address] [place] [address] Performed By: #### 2 4331-1, 3016-3, 72728-7 #### [facility] CLIA [id number] [address] [place] [address] [place] HCV Ab Ser Qlon 09-21-2024 HCV Ab Ql (S) Negative Normal Negative [facility] Comment on above: Order Comment: Speci men Type: BLOOD SPECIMENOrdering Facility: [facility] Address: [address] [place] [address] Result Comment: The result suggests no evidence of infection with Hepatitis C virus. Should recent infection be suspected, repeat testing may be considered 4-6 weeks after this draw. Performed By: #### 1 6128-1 ####[facility] [id number] [place] [address] [place] HEMOGLOBIN A1C (POC)on 09-21 HbA1c (Bld) [Mass fraction] 7.4 % Abnormal 4.3 - 5. 6 % [facility] Comment on above: Location:[address], [facility] Point of care (POC) Hemoglobin A1c (HGBA1C) [...] specific diabetes management situations: The POC device rope silica machine operator provides a normal range of 4.2% to 6.5% for the HGBA1C POC test. However, the [place] Diabetes Association guidelines indicate that patients with [...] Interpretation and review of laboratory results Abnormal [facility] HEPATITIS A ANTIBODY, IGGon 09-21-2024 HAV IgG Ql (S) Negative Normal [facility] Comment on above: Order Comment: Speci shaina Type: BLOOD SPECIMEN [facility] Address: [address] [place] [address] Result Comment: No s erological evidence of past exposure to hepatitis A virus or hepatitis A vaccination. Should recent infection be suspected, repeat testing is suggested 3-4 weeks after this draw. Performed By: #### 2 4331-1, 3015-3, 13636-4 #### [facility] CLIA [id number] [address] [place] [address] [place] HIV 1+2 Ab IA Qlon HIV 1 and 2 Ab IA.rapid Nom (S/P/Bld) Normal [facility] Comment on above: Order Comment: Bam merritt Type: BLOOD SPECIMEN [facility] Address: [address] [place] [address] Result Comment: Test not indicated. Performed By: #### 2 4331-1, 3015-3, 18894-7 #### [facility] CLIA [id number] [address] [place] [address] [place] HIV 1+2 Ab+HIV1 p24 Ag IA Ql Non-Reactive Normal Nonreactive [facility] Comment on above: Order Comment: Bam merritt Type: BLOOD SPECIMEN [facility] Address: [address] [place] [address] Performed By: #### 2 4331-1, 3015-3, 40610-5 #### [facility] CLIA [id number] [address] [place] [address] [place] HIV immunoassay testing algorithm interpretation (S/P/Bld) [Interp] Normal [facility] Comment on above: Order Comment: Speci men Type: BLOOD SPECIMEN [facility] Address: [address] [place] [address] Result Comment: No e vidence of HIV-1 or HIV-2 infection. Should recent infection be suspected, repeat testing may be considered 2-3 weeks after this draw. [place] Rev. Code 3701.243(E): This information has been [...] diagnoses. Performed By: #### 2 4331-1, 3016-3, 85907-0 #### [facility] CLIA [id number] [address] [place] [address] [place] HbA1c (Bld)on 09-21-2024 Average glucose Estimated from glycated hemoglobin (Bld) [Mass/Vol] 160 mg/dL Normal [facility] Comment on above: Order Comment: Speci men Type: BLOOD SPECIMENOrdering Facility: [facility] Address: [address] [place] [address] Result Comment: eAG: (Estimated average glucose) is a calculated value from HgbA1c and is customer solutions representative of the average blood glucose level in the last 2-3 month period. Performed By: #### 5 5454-3 ####[facility] [id number] [place] [address] [place] HbA1c (Bld) [Mass fraction] 7.2 % High 4.3-5.6 [facility] Comment on above: Order Comment: Speci men Type: BLOOD SPECIMENOrdering Facility: [facility] Address: [address] [place] [address] Result Comment: [place] Diabetes Association guidelines indicate that patients with HgbA1c in the range 5.7-6.4% are at increased risk for development of diabetes, and intervention by lifestyle modification may be beneficial. HgbA1c greater or equal to 6.5% is considered diagnostic of diabetes. Performed By: #### 5 5454-3 ####[facility] [id number] [place] [address] [place] KID K/P PANC REC HLA AB SCRN on 09-21-2024 ALLOG[facility] RESULTS TO FOLLOW See Allogen re port to follow Normal [facility] Comment on above: Order Comment: Speci men Type: BLOOD SPECIMEN [facility] Address: [address] [place] [address] Performed By: #### K PRHAS #### [facility] CLIA [id number] [address] [place] [address] [place] MeV IgG Qn (S)on 09-21-2024 MEASLES IGG AB, QUAL Positive Normal Positive [facility] Comment on above: Order Comment: Speci men Type: BLOOD SPECIMEN [facility] Address: [address] [place] [address] Result Comment: The result suggests recent or past exposure to Measles virus or Measles vaccination. The current test does not detect neutralizing antibodies. Positive result may also be seen due to presence of passively-transferred antibodies. Please correlate with patient's history. Performed By: #### 2 4331-1, 3016-3, 30958-4 #### [facility] CLIA [id number] [address] [place] [address] [place] Reagin and Treponema pallidu m IgG and IgM [Interp]on 09-21-2024 T. pallidum IgG+IgM IA Ql (S) Non-Reactive Normal Nonreactive [facility] Comment on above: Order Comment: Speci men Type: BLOOD SPECIMEN [facility] Address: [address] [place] [address] Performed By: #### 2 4331-1, 3015-3, #### [facility] CLIA [id number] [address] [place] [address] [place] Reagin+T pallidum IgG+IgM Se rPl-Impon 09-21-2024 Reagin and Treponema pallidum IgG and IgM [Interp] Cannot exclude recent Treponemal infection if specimen collected within 7-10 days after appearance of suspect lesions or 2-3 weeks after an exposure. Clinical correlation is required. Normal [facility] Comment on above: Order Comment: Speci men Type: BLOOD SPECIMEN [facility] Address: [address] [place] [address] Performed By: #### 2 4331-1, 3015-05, #### [facility] CLIA [id number] [address] [place] [address] [place] STRONGYLOIDES IGG BLon 09-21 STRONGYLOIDES IGG QUALITATIVE Negative Normal Negative [facility] Comment on above: Order Comment: Speci men Type: BLOOD SPECIMENOrdering Facility: [facility] Address: [address] [place] [address] Performed By: #### S TRSER ####[facility] [id number] [address] [place] T. gondii IgG Qn (S)on 09-21 TOXO IGG QUAL Negative Normal Negative [facility] Comment on above: Order Comment: Speci men Type: BLOOD SPECIMEN [facility] Address: [address] [place] [address] Result Comment: No s erological evidence of past exposure to Toxoplasma gondii. Cannot exclude recent infection if the specimen collected within 3-4 weeks after infection. Performed By: #### 2 4331-1, 3015-3, #### [facility] CLIA [id number] [address] [place] [address] [place] TSH SerPl-aCncon 09-21-2024 TSH Qn 2.700 m[IU]/L Normal 0.270-4.200 [facility] Comment on above: Order Comment: Speci men Type: BLOOD SPECIMENOrdering Facility: [facility] Address: [address] [place] [address] Performed By: #### 3 016-3 ####[facility] [id number] [address] [place] VARICELLA ZOSTER IGGon 09-21 VARICELLA ZOSTER IGG, QUAL Positive Normal Positive [facility] Comment on above: Order Comment: Speci men Type: BLOOD SPECIMEN [facility] Address: [address] [place] [address] Result Comment: The result suggests recent or past exposure to Varicella-Zoster virus or chickenpox vaccination or zoster vaccination. Positive result may also be seen due to presence of passively-transferred antibodies. Please correlate with patient's history. Performed By: #### 2 4331-1, 3016-3, 47644-3 #### [facility] CLIA [id number] [address] [place] [address] [place] 36on 09-20-2024 36 Received a call from nurse Bowen at [facility] stating pt missed dose of Iv abx last Friday, stop date is supposed to be on 09/22 (Friday), she is wondering if they can administrate missed dose last Friday to this Sunday 09/24. Gave her okay to administrate missed dose. Normal [facility] Esophagus Dual Contraston Esophagus Dual Contrast Normal [facility] Gastroenterology Visit Repor ton 09-07-2024 Gastroenterology Visit Report Normal [facility] Bedside Glucoseon 08-31-2024 FINGERSTICK GLU 120 mg/dL High 74-106 [facility] Comment on above: Result Comment: EDUARDO JACOBO OF PATIENT CARE PER NURSING PROTOCOL Performed By: #### L 501.080 ####[facility] [address] [place], [place], [id number] Cardiology Visit Reporton Cardiology Visit Report Normal [facility] EGD Reporton 08-31-2024 EGD Report Normal [facility]dered By: Bao Friend on 08-31-2024 Glucose [Mass/Vol] 120 mg/dL High 74-106 [facility] Comment on above: MANAGEMENT OF PATIEN T CARE PER NURSING PROTOCOL Immunohistochemical Stainson 08-31-2024 Immunohistochemical Stains Normal [facility] Comment on above: Performed By: #### P IMHI ####[facility] [address] [place], [address] MR/POSTOP.ANEon 08-31-2024 MR/POSTOP.ANE Normal [facility] MR/[id number] 08-31-2024 MR/POSTOPAN2 [facility] 36on 08-30-2024 36 Received a call from nurse Dc at [facility] [phone] verifying pt's IV orders. Verified IV med, dose, frequency, EOT, weekly labs, no follow up appt in office. She was able to read back orders. They cannot do a CMP and only can do a CBC and BMP. Told her that thi is okay, otherwise, pt will need to go to outpt lab qweekly for lab work. She stated understanding. Fax number [phone]. Normal [facility] MR/PAT.ANEon 08-30-2024 MR/PAT.ANE [facility] CBC W Auto Differential pane l (Bld)on 08-28-2024 Basophils (Bld) [#/Vol] 0 10*3/uL 0.0 - 0.2 10*3/uL [facility] Basophils/100 WBC (Bld) 0.5 % 0.0 - 2.0 % [facility] Eosinophils (Bld) [#/Vol] 0.2 10*3/uL 0. 0 - 0.5 10*3/uL [facility] Eosinophils/100 WBC (Bld) 3 % 0.0 - 6.0 % [facility] Erythrocyte distribution width (RBC) [Ratio] 12.6 % 11.5 - 15.0 % [facility] Hematocrit (Bld) [Volume fraction] 27.9 % Low 40.0 - 52.0 % [facility] Hemoglobin (Bld) [Mass/Vol] 9.3 g/dL Low 13.0 - 18.0 g/dL [facility] Immature granulocytes (Bld) [#/Vol] 0.2 10*3/uL High NINF - 0.1 10*3/uL [facility] Immature granulocytes/100 WBC (Bld) 3.8 % High 0.0 - 2.0 % [facility] Interpretation and review of laboratory results Abnormal [facility] Lymphocytes (Bld) [#/Vol] 1.4 10*3/uL 1. 0 - 4.3 10*3/uL [facility] Lymphocytes/100 WBC (Bld) 22 % 15 .0 - 45.0 % [facility] MCH (RBC) [Entitic mass] 30.2 pg 26. 0 - 34.0 pg [facility] MCHC (RBC) [Mass/Vol] 33.3 % 30.5 - 36.0 % [facility] MCV (RBC) [Entitic vol] 90.6 fL 77.0 - 99.0 fL [facility] Monocytes (Bld) [#/Vol] 0.7 10*3/uL 0.0 - 0.9 10*3/uL [facility] Monocytes/100 WBC (Bld) 11.5 % 5.0 - 13.0 % [facility] Neutrophils (Bld) [#/Vol] 3.8 10*3/uL 1. 8 - 7.5 10*3/uL [facility] Neutrophils/100 WBC (Bld) 59.2 % 38 .0 - 82.0 % [facility] Nucleated RBC/100 WBC (Bld) [Ratio] 0 % [facility] Platelet mean volume (Bld) [Entitic vol] 9.2 fL 9.0 - 12.7 fL [facility] Platelets (Bld) [#/Vol] 182 10*3/uL 140 - 440 10*3/uL [facility] RBC (Bld) [#/Vol] 3.08 10*6/uL Low 4.40 - 5.9 0 10*6/uL [facility] WBC (Bld) [#/Vol] 6.4 10*3/uL 3.6 - 10.7 10*3/uL [facility] CBC WITH AUTO DIFFERENTIALon 08-28-2024 Basophils (Bld) [#/Vol] 0.0 10*3/uL Normal 0.0-0.2 [facility] Comment on above: Performed By: #### L [id number] ####Cable Rigger: RORO LUNDBERG ([id number])[facility] [place] [address] Basophils/100 WBC (Bld) 0.5 % Normal 0.0-2.0 [facility] Comment on above: Performed By: #### L [id number] ####Cable Rigger: RORO LUNDBERG ([id number])[facility])[address] [place] [address] Eosinophils (Bld) [#/Vol] 0.2 10*3/uL Normal 0.0-0.5 [facility] Comment on above: Performed By: #### L [id number] ####Cable Rigger: RORO LUNDBERG ([id number])[facility])[address] [place] [address] Eosinophils/100 WBC (Bld) 3.0 % Normal 0.0-6.0 [facility] Comment on above: Performed By: #### L [id number] ####Cable Rigger: RORO LUNDBERG ([id number])[facility])[address] [place] [address] Erythrocyte distribution width (RBC) [Ratio] 12.6 % Normal 11.5-15.0 [facility] Comment on above: Performed By: #### L [id number] ####Cable Rigger: RORO LUNDBERG ([id number])[facility])[address] [place] [address] Hematocrit (Bld) [Volume fraction] 27.9 % Low 40.0-52.0 [facility] Comment on above: Performed By: #### L [id number] ####Cable Rigger: RORO LUNDBERG ([id number])[facility])[address] [place] [address] Hemoglobin (Bld) [Mass/Vol] 9.3 g/dL Low 13.0-18. 0 [facility] Comment on above: Performed By: #### L [id number] ####Cable Rigger: RORO LUNDBERG ([id number])[address] IMMATURE GRANS % 3.8 % High 0.0-2.0 [facility] Comment on above: Performed By: #### L [id number] ####Cable Rigger: RORO LUNDBERG ([id number])[facility])[address] [place] [address] IMMATURE GRANS ABSOLUTE 0.2 10*3/uL High <0.1 [facility] Comment on above: Performed By: #### L [id number] ####Cable Rigger: RORO LUNDBERG ([id number])[address] Lymphocytes (Bld) [#/Vol] 1.4 10*3/uL Normal 1.0-4.3 [facility] Comment on above: Performed By: #### L [id number] ####Cable Rigger: RORO LUNDBERG ([id number])[address] Lymphocytes/100 WBC (Bld) 22.0 % Normal 15.0-45.0 [facility] Comment on above: Performed By: #### L [id number] ####Cable Rigger: RORO LUNDBERG ([id number])[address] MCH (RBC) [Entitic mass] 30.2 pg Normal 26.0-34.0 [facility] Comment on above: Performed By: #### L [id number] ####Cable Rigger: RORO LUNDBERG ([id number])[address] MCHC 33.3 % Normal 30.5-36.0 [facility] Comment on above: Performed By: #### L [id number] ####Cable Rigger: RORO LUNDBERG ([id number])[facility])[address] [place] [address] MCV (RBC) [Entitic vol] 90.6 fL Normal 77.0-99.0 [facility] Comment on above: Performed By: #### L [id number] ####Cable Rigger: RORO LUNDBERG ([id number])[facility])[address] [place] [address] Monocytes (Bld) [#/Vol] 0.7 10*3/uL Normal 0.0-0.9 [facility] Comment on above: Performed By: #### L [id number] ####Cable Rigger: RORO LUNDBERG ([id number])[facility])[address] [place] [address] Monocytes/100 WBC (Bld) 11.5 % Normal 5.0-13.0 [facility] Comment on above: Performed By: #### L [id number] ####Cable Rigger: RORO LUNDBERG ([id number])[facility])[address] [place] [address] NEUTROPHILS ABSOLUTE 3.8 10*3/uL Normal 1.8-7.5 [facility] Comment on above: Performed By: #### L [id number] ####Cable Rigger: RORO LUNDBERG ([id number])[facility])[address] [place] [address] Neutrophils/100 WBC (Bld) 59.2 % Normal 38.0-82.0 [facility] Comment on above: Performed By: #### L [id number] ####Cable Rigger: RORO LUNDBERG ([id number])[facility])[address] [place] [address] NRBC 0.0 /100 WBCs Normal 0.0-2.0 [facility] Comment on above: Performed By: #### L [id number] ####Cable Rigger: RORO LUNDBERG ([id number])[facility])[address] [place] [address] Platelet mean volume (Bld) [Entitic vol] 9.2 fL Normal 9.0-12.7 [facility] Comment on above: Performed By: #### L [id number] ####Cable Rigger: RORO LUNDBERG ([id number])[facility])[address] [place] [address] Platelets (Bld) [#/Vol] 182 10*3/uL Normal 140-440 [facility] Comment on above: Performed By: #### L [id number] ####Cable Rigger: RORO LUNDBERG ([id number])[facility])[address] [place] [address] RBC (Bld) [#/Vol] 3.08 10*6/uL Low 4.40-5.90 [facility] Comment on above: Performed By: #### L [id number] ####Cable Rigger: RORO LUNDBERG ([id number])[facility])[address] [place] [address] WBC (Bld) [#/Vol] 6.4 10*3/uL Normal 3.6-10.7 [facility] Comment on above: Performed By: #### L [id number] ####Cable Rigger: RORO LUNDBERG ([id number])[facility])[address] [place] [address] COMPREHENSIVE METABOLIC PANE Jose 08-28-2024 Albumin [Mass/Vol] 2.8 g/dL Low 3.5-5.0 [facility] Comment on above: Performed By: #### L AB103, LAB17, [id number] ####Cable Rigger: RORO LUNDBERG ([id number])[facility])[address] [place] [address] ALP [Catalytic activity/Vol] 176 U/L High 40-150 [facility] Comment on above: Performed By: #### L AB103, LAB17, [id number] ####Cable Rigger: RORO LUNDBERG ([id number])[facility])[address] [place] [address] [place] ALT [Catalytic activity/Vol] 40 U/L High <40 [facility] Comment on above: Performed By: #### Marichuy BAUER, LAB17, [id number] ####Cable Rigger: RORO LUNDBERG ([id number])[facility])[address] [place] [address] Anion gap [Moles/Vol] 9 mmol/L Normal 3-13 [facility] Comment on above: Performed By: #### Marichuy BAUER, LAB17, [id number] ####Cable Rigger: RORO LUNDBERG ([id number])[facility])[address] [place] [address] [place] AST [Catalytic activity/Vol] 48 U/L High <34 [facility] Comment on above: Performed By: #### Marichuy BAUER, LAB17, [id number] ####Cable Rigger: RORO LUNDBERG ([id number])[facility])[address] [place] [address] [place] Bilirubin [Mass/Vol] 0.2 mg/dL Normal <1.2 [facility] Comment on above: Performed By: #### Marichuy BAUER, LAB17, [id number] ####Cable Rigger: RORO LUNDBERG ([id number])[facility])[address] [place] [address] [place] Calcium [Mass/Vol] 9.0 mg/dL Normal 8.4-10.2 [facility] Comment on above: Performed By: #### Marichuy BAUER, LAB17, [id number] ####Cable Rigger: RORO LUNDBERG ([id number])[facility])[address] [place] [address] [place] Chloride [Moles/Vol] 102 mmol/L Normal 98-107 [facility] Comment on above: Performed By: #### Marichuy BAUER, LAB17, [id number] ####Cable Rigger: RORO LUNDBERG ([id number])[facility])[address] [place] [address] [place] CO2 [Moles/Vol] 22 mmol/L Normal 22-29 [facility] Comment on above: Performed By: #### Marichuy ABLilly, LAB17, [id number] ####Cable Rigger: RORO LUNDBERG ([id number])[facility])[address] [place] [address] Creatinine [Mass/Vol] 4.98 mg/dL High 0.72-1.25 [facility] Comment on above: Performed By: #### Marichuy BAUER, LAB17, [id number] ####Cable Rigger: RORO LUNDBERG ([id number])[facility])[address] [place] [address] GLOMERULAR FILTRATION RATE ML/MIN/1.73 SQ M.PREDICTED 14.0 mL/min/1.73m*2 Low >60.0 [facility] Comment on above: Result Comment: Calc ulation based on the Chronic Kidney Disease Epidemiology Collaboration (CKD-EPI) equation refit without adjustment for race Performed By: #### Marichuy BAUER, LAB17, [id number] ####Cable Rigger: RORO LUNDBERG ([id number])[facility])[address] [place] [address] Glucose [Mass/Vol] 271 mg/dL High 74-100 [facility] Comment on above: Performed By: #### Marichuy BAUER, LAB17, [id number] ####Cable Rigger: RORO LUNDBERG ([id number])[facility])[address] [place] [address] Potassium [Moles/Vol] 4.3 mmol/L Normal 3.5-5.1 [facility] Comment on above: Result Comment: [facility] potassium values may be up to 0.5 mmol/L lower than serum values. Performed By: #### Marichuy BAUER, LAB17, [id number] ####Cable Rigger: RORO LUNDBERG ([phone])[facility])[address] [place] [address] Protein [Mass/Vol] 6.3 g/dL Low 6.4-8.3 [facility] Comment on above: Performed By: #### Marichuy BAUER, LAB17, [id number] ####Cable Rigger: RORO [id number])[facility] ([facility])[address] [place] [address] Sodium [Moles/Vol] 133 mmol/L Low 136-145 [facility] Comment on above: Performed By: #### L AB103, LAB17, [id number] ####Cable Rigger: RORO LUNDBERG ([id number])[facility])[address] [place] [address] Urea nitrogen [Mass/Vol] 31 mg/dL High 8-21 [facility] Comment on above: Performed By: #### L AB103, LAB17, [id number] ####Cable Rigger: RORO LUNDBERG ([id number])[facility])[address] [place] [address] Comprehensive metabolic 1998 panelOrdered By: Evelyn Aquino on 08-28-2024 Albumin [Mass/Vol] 2.8 g/dL Low 3.5 - 5.0 g/dL [facility] ALP [Catalytic activity/Vol] 176 U/L High 40 - 150 U/L [facility] ALT [Catalytic activity/Vol] 40 U/L High NINF - 40 U/L [facility] Anion gap [Moles/Vol] 9 mmol/L 3 - 13 mmol/L [facility] AST [Catalytic activity/Vol] 48 U[facility] Bilirubin [Mass/Vol] 0.2 mg/dL [facility] 1.[facility] mg/dL [facility] Calcium [Mass/Vol] 9 mg/dL 8.4 - 10. 2 mg/dL [facility] Chloride [Moles/Vol] 102 mmol/L 98 - 10 7 mmol/L [facility] CO2 [Moles/Vol] 22 mmol/L 22 - 29 mmol/L [facility] Creatinine [Mass/Vol] 4.98 mg/dL High 0.72 - 1.25 mg/dL [facility] GFR/1.73 sq M.predicted (S/P/Bld) [Vol rate/Area] 14 mL/min Low - PINF [facility] Comment on above: Calculation based on the Chronic Kidney Disease Epidemiology Collaboration (CKD-EPI) equation refit without adjustment for race Glucose [Mass/Vol] 271 mg/dL High 74 - 100 mg/dL [facility] Interpretation and review of laboratory results Abnormal [facility] Potassium [Moles/Vol] 4.3 mmol/L 3.5 - 5.1 mmol/L [facility] Comment on above: Plasma potassium willie ues may be up to 0.5 mmol/L lower than serum values. Protein [Mass/Vol] 6.3 g/dL Low 6.4 - 8.3 g/dL [facility] Sodium [Moles/Vol] 133 mmol/L Low 136 - 145 mmol/L [facility] Urea nitrogen [Mass/Vol] 31 mg/dL High 8 - 21 mg/d L [facility] Laboratory - Chemistry and C hemistry - challengeon 08-28-2024 Glucose [Mass/Vol] 335 mg/dL High 70 - 100 mg/dL [facility] Glucose [Mass/Vol] 229 mg/dL High 70 - 100 mg/dL [facility] Magnesium [Mass/Vol] 2 mg/dL 1.6 - 2 .6 mg/dL [facility] MAGNESIUMon 08-28-2024 Magnesium [Mass/Vol] 2.0 mg/dL Normal 1.6-2.6 [facility] Comment on above: Result Comment: THEODORA [place] COMMENTS: Higher values can be expected in females during menses. Performed By: #### L AB103, LAB17, NQU168 ####Cable Rigger: RORO LUNDBERG ([phone])[facility] ([facility])[address] [place] [address] Magnesium [Mass/Vol]on 08-28 Higher values can be expected in females during menses. [facility] No Panel Informationon 08-28 Interpretation and review of laboratory results Abnormal [facility] Performed by: [address] [address] CLIA ID: [id number] [facility] Interpretation and review of laboratory results Abnormal [facility] Performed by: [facility], [address] [place] [address] CLIA ID: [id number] [facility] Interpretation and review of laboratory results Normal [facility] PHOSPHORUSon 08-28-2024 Phosphate [Mass/Vol] 2.7 mg/dL Normal 2.3-4.7 [facility] Comment on above: Performed By: #### L AB103, LAB17, [id number] ####Cable Rigger: RORO LUNDBERG ([id number])[address] Phosphate [Moles/Vol]on 07-31 Phosphate [Mass/Vol] 2.7 mg/dL 2.3 - 4 .7 mg/dL [facility] Progress Noteon 08-28-2024 Progress Note Attestation [...] (including chart/data review/analysis (20), care coordination, and mqac-im-xwle encounter), and was spent discussing/counselin g the [...] Surgical Oncology Department of Surgery [facility] Department of General Surgery Daily Progress Note [...] Final 08/27 (more content not included)... Normal [facility] Progress Note Department of Internal Medicine Division of Endocrinology, Diabetes, & Metabolism Endocrinology Note Patient Name: Farrah Gonzales : 1980 AGE: 44 y.o. Room/Bed: [facility]/[address] Admission Date: 08/23/2024 Visit Date: 08/28/2024 Reason for Endocrine Consult: Type 1 diabetes mellitus on insulin pump. Provider/Team Requesting Consult: Brayan Barros PCP: Kristal Sullivan MD Outpt Nursing Professor: Yes . Jace Ko MD at outside [...] insulin pump. 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 SUBJECTIVE/HPI: CHIEF COMPLAINT: No chief complaint [...] for the last 3 years, with a [employer] G6 CGM. He uses auto mode on [...] outpatient medications (more content not included)... Normal [facility] Progress Note Attestation with edits by [...] center EOT 09/22. 7AM-5PM: contact resident on [facility] Med D (find by hovering over attending's [...] 12.6 ABGs: No results for input(s): PHART, YYN7XQZ, PO2ART, RFA5PXZ, SO2ART, N1ODDSNG in the last 72 hours. Lactic Acid: [...] from e (more content not included)... Normal [facility] 30on 08-27-2024 30 Problem: Knowledge Deficit [...] decisions related to nutrition Collaborate with clinical tie layer Problem: Safety - Adult Goal: Free from [...] Interventions Goal: Assess Nutritional Intake Outcome: Progressing [facility] Problem: Knowledge Deficit Goal: Patient/family/careg iver [...] by Mike Lopez RN Outcome: Progressing Normal [facility] 30 Problem: Knowledge Deficit Goal: Patient/family/careg [...] and maintained or improved Outcome: Progressing Normal [facility] 30 Problem: Knowledge Deficit Goal: Patient/family/careg iver demonstrates understanding of disease process, treatment plan, medications, and discharge instructions Outcome: Progressing Problem: Potential for Compromised Skin Integrity Goal: Skin Integrity is Maintained or Improved Outcome: Progressing Normal [facility] [id number] 08-27-2024 [id number] Spoke with [facility] Tammy and updated that plan was to discharge Friday with abx after dialysis. They are able to accept. OPAT faxed to facility. [facility] [phone] IV ancef continued. 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 ID following- waiting for culture results. OPAT to be written. Anticipate discharge home with no needs. Normal [facility] CBC W Auto Differential pane l (Bld)on 08-27-2024 Basophils (Bld) [#/Vol] 0 10*3/uL 0.0 - 0.2 10*3/uL [facility] Basophils/100 WBC (Bld) 0.6 % 0.0 - 2.0 % [facility] Eosinophils (Bld) [#/Vol] 0.2 10*3/uL 0. 0 - 0.5 10*3/uL [facility] Eosinophils/100 WBC (Bld) 3.4 % 0.0 - 6.0 % [facility] Erythrocyte distribution width (RBC) [Ratio] 12.8 % 11.5 - 15.0 % [facility] Hematocrit (Bld) [Volume fraction] 32.3 % Low 40.0 - 52.0 % [facility] Hemoglobin (Bld) [Mass/Vol] 10.5 g/dL Low 13.0 - 18.0 g/dL [facility] Immature granulocytes (Bld) [#/Vol] 0.1 10*3/uL High NINF - 0.1 10*3/uL [facility] Immature granulocytes/100 WBC (Bld) 2.2 % High 0.0 - 2.0 % [facility] Interpretation and review of laboratory results Abnormal [facility] Lymphocytes (Bld) [#/Vol] 1.3 10*3/uL 1. 0 - 4.3 10*3/uL [facility] Lymphocytes/100 WBC (Bld) 21.4 % 15 .0 - 45.0 % [facility] MCH (RBC) [Entitic mass] 29.9 pg 26. 0 - 34.0 pg [facility] MCHC (RBC) [Mass/Vol] 32.5 % 30.5 - 36.0 % [facility] MCV (RBC) [Entitic vol] 92 fL 77.0 - 99.0 fL [facility] Monocytes (Bld) [#/Vol] 0.7 10*3/uL 0.0 - 0.9 10*3/uL [facility] Monocytes/100 WBC (Bld) 11 % 5.0 - 13.0 % [facility] Neutrophils (Bld) [#/Vol] 3.8 10*3/uL 1. 8 - 7.5 10*3/uL [facility] Neutrophils/100 WBC (Bld) 61.4 % 38 .0 - 82.0 % [facility] Nucleated RBC/100 WBC (Bld) [Ratio] 0 % [facility] Platelet mean volume (Bld) [Entitic vol] 9.9 fL 9.0 - 12.7 fL [facility] Platelets (Bld) [#/Vol] 215 10*3/uL 140 - 440 10*3/uL [facility] RBC (Bld) [#/Vol] 3.51 10*6/uL Low 4.40 - 5.9 0 10*6/uL [facility] WBC (Bld) [#/Vol] 6.3 10*3/uL 3.6 - 10.7 10*3/uL [facility] CBC WITH AUTO DIFFERENTIALon 08-27-2024 Basophils (Bld) [#/Vol] 0.0 10*3/uL Normal 0.0-0.2 [facility] Comment on above: Performed By: #### L [id number] ####Cable Rigger: RORO LUNDBERG ([id number])[facility])[address] [place] [address] Basophils/100 WBC (Bld) 0.6 % Normal 0.0-2.0 [facility] Comment on above: Performed By: #### L [id number] ####Cable Rigger: RORO LUNDBERG ([id number])[facility] ([facility])[address] [place] [address] [place] Eosinophils (Bld) [#/Vol] 0.2 10*3/uL Normal 0.0-0.5 [facility] Comment on above: Performed By: #### L [id number] ####Cable Rigger: RORO LUNDBERG ([id number])[facility] ([facility])[address] [place] [address] [place] Eosinophils/100 WBC (Bld) 3.4 % Normal 0.0-6.0 [facility] Comment on above: Performed By: #### L [id number] ####Cable Rigger: RORO LUNDBERG ([id number])[address] Erythrocyte distribution width (RBC) [Ratio] 12.8 % Normal 11.5-15.0 [facility] Comment on above: Performed By: #### L [id number] ####Cable Rigger: RORO LUNBDERG ([id number])[address] Hematocrit (Bld) [Volume fraction] 32.3 % Low 40.0-52.0 [facility] Comment on above: Performed By: #### L [id number] ####Cable Rigger: RORO LUNDBERG ([id number])[address] Hemoglobin (Bld) [Mass/Vol] 10.5 g/dL Low 13.0-18. 0 [facility] Comment on above: Performed By: #### L [id number] ####Cable Rigger: RORO LUNDBERG ([id number])[address] IMMATURE GRANS % 2.2 % High 0.0-2.0 [facility] Comment on above: Performed By: #### L [id number] ####Cable Rigger: RORO LUNDBERG ([id number])[address] IMMATURE GRANS ABSOLUTE 0.1 10*3/uL High <0.1 [facility] Comment on above: Performed By: #### L [id number] ####Cable Rigger: RORO LUNDBERG ([id number])[address] Lymphocytes (Bld) [#/Vol] 1.3 10*3/uL Normal 1.0-4.3 [facility] Comment on above: Performed By: #### L [id number] ####Cable Rigger: RORO LUNDBERG ([id number])[facility])[address] [place] [address] Lymphocytes/100 WBC (Bld) 21.4 % Normal 15.0-45.0 [facility] Comment on above: Performed By: #### L [id number] ####Cable Rigger: RORO LUNDBERG ([id number])[facility])[address] [place] [address] MCH (RBC) [Entitic mass] 29.9 pg Normal 26.0-34.0 [facility] Comment on above: Performed By: #### L [id number] ####Cable Rigger: RORO LUNDBERG ([id number])[facility])[address] [place] [address] MCHC 32.5 % Normal 30.5-36.0 [facility] Comment on above: Performed By: #### L [id number] ####Cable Rigger: RORO LUNDBERG ([id number])[facility])[address] [place] [address] MCV (RBC) [Entitic vol] 92.0 fL Normal 77.0-99.0 [facility] Comment on above: Performed By: #### L [id number] ####Cable Rigger: RORO LUNDBERG ([id number])[facility])[address] [place] [address] Monocytes (Bld) [#/Vol] 0.7 10*3/uL Normal 0.0-0.9 [facility] Comment on above: Performed By: #### L [id number] ####Cable Rigger: RORO LUNDBERG ([id number])[facility])[address] [place] [address] Monocytes/100 WBC (Bld) 11.0 % Normal 5.0-13.0 [facility] Comment on above: Performed By: #### L [id number] ####Cable Rigger: RORO LUNDBERG ([id number])[facility])[address] [place] [address] NEUTROPHILS ABSOLUTE 3.8 10*3/uL Normal 1.8-7.5 [facility] Comment on above: Performed By: #### L [id number] ####Cable Rigger: RORO LUNDBERG ([id number])[facility] ([facility])[address] [place] [address] Neutrophils/100 WBC (Bld) 61.4 % Normal 38.0-82.0 [facility] Comment on above: Performed By: #### L [id number] ####Cable Rigger: RORO LUNDBERG ([id number])[facility] ([facility])[address] [place] [address] NRBC 0.0 /100 WBCs Normal 0.0-2.0 [facility] Comment on above: Performed By: #### L [id number] ####Cable Rigger: RORO LUNDBERG ([id number])[facility] ([facility])[address] [place] [address] Platelet mean volume (Bld) [Entitic vol] 9.9 fL Normal 9.0-12.7 [facility] Comment on above: Performed By: #### L [id number] ####Cable Rigger: RORO LUNDBERG ([id number])[facility] ([facility])[address] [place] [address] Platelets (Bld) [#/Vol] 215 10*3/uL Normal 140-440 [facility] Comment on above: Performed By: #### L [id number] ####Cable Rigger: RORO LUNDBERG ([id number])[facility] ([facility])[address] [place] [address] [place] RBC (Bld) [#/Vol] 3.51 10*6/uL Low 4.40-5.90 [facility] Comment on above: Performed By: #### L [id number] ####Cable Rigger: RORO LUNDBERG ([id number])[facility] ([facility])[address] [place] [address] [place] WBC (Bld) [#/Vol] 6.3 10*3/uL Normal 3.6-10.7 [facility] Comment on above: Performed By: #### L [id number] ####Cable Rigger: RORO LUNDBERG ([id number])[facility])[address] [place] [address] COMPREHENSIVE METABOLIC PANE Jose 08-27-2024 Albumin [Mass/Vol] 3.2 g/dL Low 3.5-5.0 [facility] Comment on above: Performed By: #### L AB17, SWS635, EMS680 ####Cable Rigger: RORO LUNDBERG ([id number])[facility] ([facility])[address] [place] [address] ALP [Catalytic activity/Vol] 222 U/L High 40-150 [facility] Comment on above: Performed By: #### L AB17, CKB054, HXD589 ####Cable Rigger: RORO LUNDBERG ([id number])[facility] ([facility])[address] [place] [address] ALT [Catalytic activity/Vol] 70 U/L High <40 [facility] Comment on above: Performed By: #### L AB17, SMN534, MCN330 ####Cable Rigger: RORO LUNDBERG ([id number])[facility])[address] [place] [address] Anion gap [Moles/Vol] 8 mmol/L Normal 3-13 [facility] Comment on above: Performed By: #### L AB17, MWC112, BBJ509 ####Cable Rigger: RORO LUNDBERG ([id number])[facility])[address] [place] [address] AST [Catalytic activity/Vol] 64 U/L High <34 [facility] Comment on above: Performed By: #### L AB17, DTK663, IBB299 ####Cable Rigger: RORO LUNDBERG ([id number])[facility])[address] [place] [address] Bilirubin [Mass/Vol] 0.3 mg/dL Normal <1.2 [facility] Comment on above: Performed By: #### L AB17, NYT955, QHA315 ####Cable Rigger: RORO LUNDBERG ([id number])[facility] [place] [address] Calcium [Mass/Vol] 9.5 mg/dL Normal 8.4-10.2 [facility] Comment on above: Performed By: #### L AB17, YBM166, GKZ027 ####Cable Rigger: RORO LUNDBERG ([id number])[facility] [place] [address] Chloride [Moles/Vol] 102 mmol/L Normal 98-107 [facility] Comment on above: Performed By: #### L AB17, BBY810, SFE834 ####Cable Rigger: RORO LUNDBERG ([id number])[facility] [place] [address] CO2 [Moles/Vol] 24 mmol/L Normal 22-29 [facility] Comment on above: Performed By: #### L AB17, KJY743, AQQ245 ####Cable Rigger: RORO LUNDBERG ([id number])[facility] ([facility])[address] [place] [address] Creatinine [Mass/Vol] 6.32 mg/dL High 0.72-1.25 [facility] Comment on above: Performed By: #### L AB17, ICF562, DFN620 ####Cable Rigger: RORO LUNDBERG ([id number])[facility] ([facility])[address] [place] [address] [place] GLOMERULAR FILTRATION RATE ML/MIN/1.73 SQ M.PREDICTED 10.5 mL/min/1.73m*2 Low >60.0 [facility] Comment on above: Result Comment: Calc ulation based on the Chronic Kidney Disease Epidemiology Collaboration (CKD-EPI) equation refit without adjustment for race Performed By: #### L AB17, GWS678, CIC042 ####Cable Rigger: RORO LUNDBERG ([id number])[facility] [place] [address] [place] Glucose [Mass/Vol] 168 mg/dL High 74-100 [facility] Comment on above: Performed By: #### L AB17, KDB208, YYY212 ####Cable Rigger: RORO LUNDBERG ([id number])[facility] ([facility])[address] [place] [address] Potassium [Moles/Vol] 4.0 mmol/L Normal 3.5-5.1 [facility] Comment on above: Result Comment: [facility] potassium values may be up to 0.5 mmol/L lower than serum values. Performed By: #### L AB17, HDO127, QIH606 ####Cable Rigger: RORO LUNDBERG ([id number])[facility] ([facility])[address] [place] [address] Protein [Mass/Vol] 7.0 g/dL Normal 6.4-8.3 [facility] Comment on above: Performed By: #### L AB17, FDO444, CTC305 ####Cable Rigger: RORO LUNDBERG ([id number])[facility] [place] [address] Sodium [Moles/Vol] 134 mmol/L Low 136-145 [facility] Comment on above: Performed By: #### L AB17, CEU871, NVN475 ####Cable Rigger: RORO LUNDBERG ([id number])[facility] ([facility])[address] [place] [address] Urea nitrogen [Mass/Vol] 36 mg/dL High 8-21 [facility] Comment on above: Performed By: #### L AB17, EJC432, NHE774 ####Cable Rigger: RORO LUNDBERG ([id number])[facility] ([facility])[address] [place] [address] Comprehensive metabolic 1998 panelon 08-27-2024 Albumin [Mass/Vol] 3.2 g/dL Low 3.5 - 5.0 g/dL [facility] ALP [Catalytic activity/Vol] 222 U/L High 40 - 150 U/L [facility] ALT [Catalytic activity/Vol] 70 U/L High NINF - 40 U/L [facility] Anion gap [Moles/Vol] 8 mmol/L 3 - 13 mmol/L [facility] AST [Catalytic activity/Vol] 64 U/L High NINF - 34 U/L [facility] Bilirubin [Mass/Vol] 0.3 mg/dL NINF - 1.2 mg/dL [facility] Calcium [Mass/Vol] 9.5 mg/dL 8.4 - 10. 2 mg/dL [facility] Chloride [Moles/Vol] 102 mmol/L 98 - 10 7 mmol/L [facility] CO2 [Moles/Vol] 24 mmol/L 22 - 29 mmol/L [facility] Creatinine [Mass/Vol] 6.32 mg/dL High 0.72 - 1.25 mg/dL [facility] GFR/1.73 sq M.predicted (S/P/Bld) [Vol rate/Area] 10.5 mL/min Low - PINF [facility] Comment on above: Calculation based on the Chronic Kidney Disease Epidemiology Collaboration (CKD-EPI) equation refit without adjustment for race Glucose [Mass/Vol] 168 mg/dL High 74 - 100 mg/dL [facility] Interpretation and review of laboratory results Abnormal [facility] Potassium [Moles/Vol] 4 mmol/L 3.5 - 5.1 mmol/L [facility] Comment on above: Plasma potassium willie ues may be up to 0.5 mmol/L lower than serum values. Protein [Mass/Vol] 7 g/dL 6.4 - 8.3 g/dL [facility] Sodium [Moles/Vol] 134 mmol/L Low 136 - 145 mmol/L [facility] Urea nitrogen [Mass/Vol] 36 mg/dL High 8 - 21 mg/d L [facility] Laboratory - Chemistry and C hemistry - challengeon 08-27-2024 Glucose [Mass/Vol] 345 mg/dL High 70 - 100 mg/dL [facility] Glucose [Mass/Vol] 209 mg/dL High 70 - 100 mg/dL [facility] Glucose [Mass/Vol] 260 mg/dL High 70 - 100 mg/dL [facility] Glucose [Mass/Vol] 79 mg/dL 70 - 100 mg/dL [facility] Magnesium [Mass/Vol] 2.1 mg/dL 1.6 - 2 .6 mg/dL [facility] MAGNESIUMon 08-27-2024 Magnesium [Mass/Vol] 2.1 mg/dL Normal 1.6-2.6 [facility] Comment on above: Result Comment: THEODORA R COMMENTS: Higher values can be expected in females during menses. Performed By: #### L AB17, TPJ002, LJL665 ####Cable Rigger: RORO LUNDBERG ([id number])[facility] ([facility])[address] [place] [address] [place] Magnesium [Mass/Vol]on 08-27 Higher values can be expected in females during menses. [facility] No Panel Informationon 08-27 Interpretation and review of laboratory results Abnormal [facility] Performed by: [facility], [address] [place] [id number] CLIA ID: [id number] [facility] Interpretation and review of laboratory results Abnormal [facility] Performed by: [facility], [address] [place] [address] CLIA ID: [id number] [facility] Interpretation and review of laboratory results Abnormal [facility] Performed by: [facility], [address] [place] [address] CLIA ID: [id number] [facility] Interpretation and review of laboratory results Normal [facility] Performed by: [facility], [address] [place] [address] CLIA ID: [id number] [facility] Interpretation and review of laboratory results Normal [facility] Nursing Noteon 08-27-2024 Nursing Note Patient Name: Farrah Gonzales Patient : 1980 Acct: [id number] Date of Admission: 08/23/2024 [facility] A Code Status: Full Code Allergies: Allergies[1] [...] - Before each treatment: Dialysis Machine No.: [id number] RO Machine Number: [id number] Dialyzer Lot No.: [id number] Tubing Lot Number: [id number] [employer] Secure: Yes Venous Parameters Set: Yes Arterial Parameters Set: Yes NS Bag: Yes Saline Line Double Clamped: Yes Dialyzer: Revaclear 300 Prime Volume (mL): 200 mL RO Machine Number: [id number] RO Machine Log Sheet Completed: Yes Machine Alarm Self Test: Completed, Passed (08/27/24 1300) Air Foam Detector: Tested, Proper Function, pH Reading Extracorporeal Circuit Tested for Integrity: Yes Machine Conductivity: 13..8 Manual Conductivity: 13.8 Manual Ph: 7.14 Bleach Test (Neg): Yes Bath Temperature: 36 ?C (96.8 ?F) Conductivity Meter Serial #: [id number] Machine Functioning Alarm Free? Yes Dialysis Bath: K+ (Potassium): 3 Ca+ (Calcium): 2.5 Na+ (Sodium): 137 HCO3 (Bicarb): 32 Bicarbonate Concentrate Lot No.: [id number] Acid Concentrate Lot No.: [id number] Chlorine Testing - Before each treatment and [...] Rmvd 55 (more content not included)... Normal [facility] Nursing Note Ok per primary to take shower Normal [facility] PHOSPHORUSon 08-27-2024 Phosphate [Mass/Vol] 2.9 mg/dL Normal 2.3-4.7 [facility] Comment on above: Performed By: #### L [id number], [id number], [id number] ####Cable Rigger: RORO LUNDBERG ([id number])[address] Phosphate [Moles/Vol]on 07-31 Phosphate [Mass/Vol] 2.9 mg/dL 2.3 - 4 .7 mg/dL [facility] Progress Noteon 08-27-2024 Progress Note Attestation [...] Gonzales : 1980 AGE: 44 y.o. Room/Bed: [facility]/[address] Admission Date: 08/23/2024 Visit Date: 08/27/2024 Reason for Endocrine Consult: Type 1 diabetes mellitus on insulin pump. Provider/Team Requesting Consult: Brayan Barros PCP: Kristal Sullivan MD Outpt Nursing Professor: Yes . Jace Ko MD at outside [...] insulin pump. 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 SUBJECTIVE/HPI: CHIEF COMPLAINT: No chief complaint [...] for the last 3 years, with a [employer] G6 CGM. He uses auto mode on [...] demarcated in [place]. 7AM-5PM: contact resident on [facility] Med D (find by hovering over attending's [...] 12.8 ABGs: No results for input(s): PHART, [id number], PO2ART, KKP5ZZB, SO2ART, O6DCHYIJ in the last 72 hours. Lactic Acid: [...] liver enzymes - Per HPB, MRI from [place] shows liver hemangioma so no surgical intervention needed - Monitor and trend daily LFTs Resolved Problems: Diarrhea, resolved Intractable Nausea/Vomiting, resolved Unclear etiology. C. Diff by PCR negative. Likely due to abx use. - Imodium as needed - Compazine as need (more content not included)... Normal [facility] [id number] 08-26-2024 [id number] IV ancef continued. Repeat cultures pending. 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 Nephrology following. Anticipate discharge home with no needs. Normal [facility] Bacteria identified Cx Nom ( Bld)on 08-26-2024 Interpretation and review of laboratory results Abnormal [facility] Blood Collection Site: Left Forearm [facility] Bacteria identified Cx Nom ( Bld)Ordered By: Soraida Phelps on 08-26-2024 Interpretation and review of laboratory results Abnormal [facility] PBP2A Negative [facility] Blood Collection Site: Right Upper Arm [facility] CBC W Auto Differential pane l (Bld)on 08-26-2024 Basophils (Bld) [#/Vol] 0 10*3/uL 0.0 - 0.2 10*3/uL [facility] Basophils/100 WBC (Bld) 1 % 0.0 - 2.0 % [facility] Eosinophils (Bld) [#/Vol] 0.1 10*3/uL 0. 0 - 0.5 10*3/uL [facility] Eosinophils/100 WBC (Bld) 3.1 % 0.0 - 6.0 % [facility] Erythrocyte distribution width (RBC) [Ratio] 12.8 % 11.5 - 15.0 % [facility] Hematocrit (Bld) [Volume fraction] 28.4 % Low 40.0 - 52.0 % [facility] Hemoglobin (Bld) [Mass/Vol] 9.5 g/dL Low 13.0 - 18.0 g/dL [facility] [address] Immature granulocytes (Bld) [#/Vol] 0.1 10*3/uL High NINF - 0.1 10*3/uL [facility] Immature granulocytes/100 WBC (Bld) 1.2 % 0.0 - 2.0 % [facility] Interpretation and review of laboratory results Abnormal [facility] Lymphocytes (Bld) [#/Vol] 1 10*3/uL 1. 0 - 4.3 10*3/uL [facility] Lymphocytes/100 WBC (Bld) 24.8 % 15 .0 - 45.0 % [facility] MCH (RBC) [Entitic mass] 30.4 pg 26. 0 - 34.0 pg [facility] MCHC (RBC) [Mass/Vol] 33.5 % 30.5 - 36.0 % [facility] MCV (RBC) [Entitic vol] 90.7 fL 77.0 - 99.0 fL [facility] Monocytes (Bld) [#/Vol] 0.6 10*3/uL 0.0 - 0.9 10*3/uL [facility] Monocytes/100 WBC (Bld) 15 % High 5.0 - 13.0 % [facility] Neutrophils (Bld) [#/Vol] 2.3 10*3/uL 1. 8 - 7.5 10*3/uL [facility] Neutrophils/100 WBC (Bld) 54.9 % 38 .0 - 82.0 % [facility] Nucleated RBC/100 WBC (Bld) [Ratio] 0 % [facility] Platelet mean volume (Bld) [Entitic vol] 9.6 fL 9.0 - 12.7 fL [facility] [address] Platelets (Bld) [#/Vol] 171 10*3/uL 140 - 440 10*3/uL [facility] RBC (Bld) [#/Vol] 3.13 10*6/uL Low 4.40 - 5.9 0 10*6/uL [facility] WBC (Bld) [#/Vol] 4.2 10*3/uL 3.6 - 10.7 10*3/uL [facility] CBC WITH AUTO DIFFERENTIALon 05-29-2025 Basophils (Bld) [#/Vol] 0.0 10*3/uL Normal 0.0-0.2 [facility] Comment on above: Performed By: #### L [id number] ####Cable Rigger: RORO LUNDBERG ([id number])[facility])[address] [place] [address] Basophils/100 WBC (Bld) 1.0 % Normal 0.0-2.0 [facility] Comment on above: Performed By: #### L [id number] ####Cable Rigger: RORO LUNDBERG ([id number])[facility] ([facility])[address] [place] [address] Eosinophils (Bld) [#/Vol] 0.1 10*3/uL Normal 0.0-0.5 [facility] Comment on above: Performed By: #### L [id number] ####Cable Rigger: RORO LUNDBERG ([id number])[facility] ([facility])[address] [place] [address] Eosinophils/100 WBC (Bld) 3.1 % Normal 0.0-6.0 [facility] Comment on above: Performed By: #### L [id number] ####Cable Rigger: RORO LUNDBERG ([id number])[facility])[address] [place] [address] Erythrocyte distribution width (RBC) [Ratio] 12.8 % Normal 11.5-15.0 [facility] Comment on above: Performed By: #### L [id number] ####Cable Rigger: RORO LUNDBERG ([id number])[facility] ([facility])[address] [place] [address] Hematocrit (Bld) [Volume fraction] 28.4 % Low 40.0-52.0 [facility] Comment on above: Performed By: #### L [id number] ####Cable Rigger: RORO LUNDBERG ([id number])[facility])[address] [place] [address] Hemoglobin (Bld) [Mass/Vol] 9.5 g/dL Low 13.0-18. 0 [facility] Comment on above: Performed By: #### L [id number] ####Cable Rigger: RORO LUNDBERG ([id number])[facility])[address] [place] [address] IMMATURE GRANS % 1.2 % Normal 0.0-2.0 [facility] Comment on above: Performed By: #### L [id number] ####Cable Rigger: RORO LUNDBERG ([id number])[facility])[address] [place] [address] IMMATURE GRANS ABSOLUTE 0.1 10*3/uL High <0.1 [facility] Comment on above: Performed By: #### L [id number] ####Cable Rigger: RORO LUNDBERG ([id number])[address] Lymphocytes (Bld) [#/Vol] 1.0 10*3/uL Normal 1.0-4.3 [facility] Comment on above: Performed By: #### L [id number] ####Cable Rigger: RORO LUNDBERG ([id number])[address] Lymphocytes/100 WBC (Bld) 24.8 % Normal 15.0-45.0 [facility] Comment on above: Performed By: #### L [id number] ####Cable Rigger: RORO LUNDBERG ([id number])[address] MCH (RBC) [Entitic mass] 30.4 pg Normal 26.0-34.0 [facility] Comment on above: Performed By: #### L [id number] ####Cable Rigger: RORO LUNDBERG ([id number])[address] MCHC 33.5 % Normal 30.5-36.0 [facility] Comment on above: Performed By: #### L [id number] ####Cable Rigger: RORO LUNDBERG ([id number])[facility] ([facility])[address] [place] [address] MCV (RBC) [Entitic vol] 90.7 fL Normal 77.0-99.0 [facility] Comment on above: Performed By: #### L [id number] ####Cable Rigger: RORO LUNDBERG ([id number])[facility] ([facility])[address] [place] [address] Monocytes (Bld) [#/Vol] 0.6 10*3/uL Normal 0.0-0.9 [facility] Comment on above: Performed By: #### L [id number] ####Cable Rigger: RORO LUNDBERG ([id number])[facility] ([facility])[address] [place] [address] Monocytes/100 WBC (Bld) 15.0 % High 5.0-13.0 [facility] Comment on above: Performed By: #### L [id number] ####Cable Rigger: RORO LUNDBERG ([id number])[facility] ([facility])[address] [place] [address] NEUTROPHILS ABSOLUTE 2.3 10*3/uL Normal 1.8-7.5 [facility] Comment on above: Performed By: #### L [id number] ####Cable Rigger: RORO LUNDBERG ([id number])[facility])[address] [place] [address] Neutrophils/100 WBC (Bld) 54.9 % Normal 38.0-82.0 [facility] Comment on above: Performed By: #### L [id number] ####Cable Rigger: RORO LUNDBERG ([id number])[facility])[address] [place] [address] NRBC 0.0 /100 WBCs Normal 0.0-2.0 [facility] Comment on above: Performed By: #### L [id number] ####Cable Rigger: RORO LUNDBERG ([id number])[facility] ([facility])[address] [place] [address] Platelet mean volume (Bld) [Entitic vol] 9.6 fL Normal 9.0-12.7 [facility] Comment on above: Performed By: #### L [id number] ####Cable Rigger: RORO LUNDBERG ([id number])[facility])[address] [place] [address] Platelets (Bld) [#/Vol] 171 10*3/uL Normal 140-440 [facility] Comment on above: Performed By: #### L [id number] ####Cable Rigger: RORO LUNDBERG ([id number])[facility] ([facility])[address] [place] [address] RBC (Bld) [#/Vol] 3.13 10*6/uL Low 4.40-5.90 [facility] Comment on above: Performed By: #### L [id number] ####Cable Rigger: RORO LUNDBERG ([id number])[facility] ([facility])[address] [place] [address] WBC (Bld) [#/Vol] 4.2 10*3/uL Normal 3.6-10.7 [facility] Comment on above: Performed By: #### L [id number] ####Cable Rigger: RORO LUNDBERG ([id number])[facility])[address] [place] [address] COMPREHENSIVE METABOLIC PANE Jose 08-26-2024 Albumin [Mass/Vol] 2.7 g/dL Low 3.5-5.0 [facility] Comment on above: Performed By: #### L [id number] #### Cable Rigger: RORO LUNDBERG ([id number]) [facility] ([facility]) [address] [place] [address] ALP [Catalytic activity/Vol] 206 U/L High 40-150 [facility] Comment on above: Performed By: #### L [id number] #### Cable Rigger: RORO LUNDBERG ([id number]) [facility] ([facility]) [address] [place] [address] [place] ALT [Catalytic activity/Vol] 109 U/L High <40 [facility] Comment on above: Performed By: #### L [id number] #### Cable Rigger: RORO LUNDBERG ([id number]) [facility] [address] [place] [address] Anion gap [Moles/Vol] 10 mmol/L Normal 3-13 [facility] Comment on above: Performed By: #### L [id number] #### Cable Rigger: RORO LUNDBERG ([id number]) [facility] [address] [place] [address] AST [Catalytic activity/Vol] 114 U/L High <34 [facility] Comment on above: Performed By: #### L [id number] #### Cable Rigger: RORO LUNDBERG ([id number]) [facility] ([facility]) [address] [place] [address] Bilirubin [Mass/Vol] 0.3 mg/dL Normal <1.2 [facility] Comment on above: Performed By: #### L [id number] #### Cable Rigger: RORO LUNDBERG ([id number]) [facility] [address] [place] [address] [place] Calcium [Mass/Vol] 9.0 mg/dL Normal 8.4-10.2 [facility] Comment on above: Performed By: #### L [id number] #### Cable Rigger: RORO LUNDBERG ([id number]) [facility] ([facility]) [address] [place] [address] [place] Chloride [Moles/Vol] 102 mmol/L Normal 98-107 [facility] Comment on above: Performed By: #### L [id number] #### Cable Rigger: RORO LUNDBERG ([id number]) [facility] ([facility]) [address] [place] [address] [place] CO2 [Moles/Vol] 23 mmol/L Normal 22-29 [facility] Comment on above: Performed By: #### L [id number] #### Cable Rigger: RORO LUNDBERG ([id number]) [facility] ([facility]) [address] [place] [address] Creatinine [Mass/Vol] 5.33 mg/dL High 0.72-1.25 [facility] Comment on above: Performed By: #### L [id number] #### Cable Rigger: RORO LUNDBERG ([id number]) [facility] ([facility]) [address] [place] [address] [place] GLOMERULAR FILTRATION RATE ML/MIN/1.73 SQ M.PREDICTED 12.9 mL/min/1.73m*2 Low >60.0 [facility] Comment on above: Result Comment: Calc ulation based on the Chronic Kidney Disease Epidemiology Collaboration (CKD-EPI) equation refit without adjustment for race Performed By: #### L [id number] #### Cable Rigger: RORO LUNDBERG ([id number]) [facility] [address] [place] [address] Glucose [Mass/Vol] 248 mg/dL High 74-100 [facility] Comment on above: Performed By: #### L [id number] #### Cable Rigger: RORO LUNDBERG ([id number]) [facility] [address] [place] [address] Potassium [Moles/Vol] 4.4 mmol/L Normal 3.5-5.1 [facility] Comment on above: Result Comment: [facility] potassium values may be up to 0.5 mmol/L lower than serum values. Performed By: #### L [id number] #### Cable Rigger: RORO LUNDBERG ([id number]) [facility] [address] [place] [address] Protein [Mass/Vol] 6.3 g/dL Low 6.4-8.3 [facility] Comment on above: Performed By: #### L [id number] #### Cable Rigger: RORO LUNDBERG ([id number]) [facility]) [address] [place] [address] [place] Result Comment: Seru m protein values are higher than plasma values. Samples from recumbent persons are lower by up to 0.5 g/dL as compared to ambulatory persons. After 60 years values are lower by up to 0.2 g/dL. Sodium [Moles/Vol] 135 mmol/L Low 136-145 [facility] Comment on above: Performed By: #### L [id number] #### Cable Rigger: RORO LUNDBERG ([id number]) [facility] ([facility]) [address] [place] [address] Urea nitrogen [Mass/Vol] 30 mg/dL High 8-21 [facility] Comment on above: Performed By: #### L [id number] #### Cable Rigger: RORO LUNDBERG ([id number]) [facility] ([facility]) [address] [place] [address] Comprehensive metabolic 1998 panelon 08-26-2024 Albumin [Mass/Vol] 2.7 g/dL Low 3.5 - 5.0 g/dL [facility] ALP [Catalytic activity/Vol] 206 U/L High 40 - 150 U/L [facility] ALT [Catalytic activity/Vol] 109 U/L High NINF - 40 U/L [facility] Anion gap [Moles/Vol] 10 mmol/L 3 - 13 mmol/L [facility] AST [Catalytic activity/Vol] 114 U/L High NINF - 34 U/L [facility] Bilirubin [Mass/Vol] 0.3 mg/dL [facility] - [facility] mg/dL [facility] Calcium [Mass/Vol] 9 mg/dL 8.4 - 10. 2 mg/dL [facility] Chloride [Moles/Vol] 102 mmol/L 98 - 10 7 mmol/L [facility] CO2 [Moles/Vol] 23 mmol/L 22 - 29 mmol/L [facility] Creatinine [Mass/Vol] 5.33 mg/dL High 0.72 - 1.25 mg/dL [facility] GFR/1.73 sq M.predicted (S/P/Bld) [Vol rate/Area] 12.9 mL/min Low - PINF [facility] Comment on above: Calculation based on the Chronic Kidney Disease Epidemiology Collaboration (CKD-EPI) equation refit without adjustment for race Glucose [Mass/Vol] 248 mg/dL High 74 - 100 mg/dL [facility] Interpretation and review of laboratory results Abnormal [facility] Potassium [Moles/Vol] 4.4 mmol/L 3.5 - 5.1 mmol/L [facility] Comment on above: Plasma potassium willie ues may be up to 0.5 mmol/L lower than serum values. Protein [Mass/Vol] 6.3 g/dL Low 6.4 - 8.3 g/dL [facility] Sodium [Moles/Vol] 135 mmol/L Low 136 - 145 mmol/L [facility] Urea nitrogen [Mass/Vol] 30 mg/dL High 8 - 21 mg/d L [facility] HEPATIC FUNCTION PANELon Bilirubin.indirect [Mass/Vol] 0.1 mg/dL Normal <0.5 [facility] Comment on above: Performed By: #### L [id number] #### Cable Rigger: RORO LUNDBERG ([id number]) [facility] ([facility]) [address] [place] [address] Hepatic function 2000 panelO rdered By: Carmelita Carolina on 08-26-2024 Albumin [Mass/Vol] 2.7 g/dL Low 3.5 - 5.0 g/dL [facility] ALP [Catalytic activity/Vol] 206 U/L High 40 - 150 U/L [facility] ALT [Catalytic activity/Vol] 109 U/L High NINF - 40 U/L [facility] AST [Catalytic activity/Vol] 114 U/L High [facility] - [facility] U/L [facility] Bilirubin [Mass/Vol] 0.3 mg/dL [facility] - 1.2 mg/dL [facility] Bilirubin.conjugated [Mass/Vol] 0.1 mg/dL [facility] - 0.5 mg/dL [facility] Interpretation and review of laboratory results Abnormal [facility] Protein [Mass/Vol] 6.3 g/dL Low 6.4 - 8.3 g/dL [facility] Comment on above: Serum protein values are higher than plasma values. Samples from recumbent persons are lower by up to 0.5 g/dL as compared to ambulatory persons. After 60 years values are lower by up to 0.2 g/dL. [facility] Laboratory - Chemistry and C hemistry - challengeon 08-26-2024 Glucose [Mass/Vol] 212 mg/dL High 70 - 100 mg/dL [facility] Glucose [Mass/Vol] 169 mg/dL High 70 - 100 mg/dL [facility] Glucose [Mass/Vol] 359 mg/dL High 70 - 100 mg/dL [facility] Glucose [Mass/Vol] 247 mg/dL High 70 - 100 mg/dL [facility] Magnesium [Mass/Vol] 2.1 mg/dL 1.6 - 2 .6 mg/dL [facility] Laboratory - Microbiology an d Antimicrobial susceptibilityon 08-26-2024 Bacteria identified Cx Nom (Bld) Staphylococcus aureus Critically abnormal [facility] Comment on above: ID consult required per med staff policy dated 2021. This is an edited result. Previous organism was Gram-positive cocci on 08/24/2024 at 0543 EDT. Laboratory - Microbiology an d Antimicrobial susceptibilityOrdered By: Soraida Phelps on 08-26-2024 Bacteria identified Cx Nom (Bld) Staphylococcus aureus Critically abnormal [facility] Comment on above: ID consult required per med staff policy dated 2021. For identification and/or sensitivity, refer to culture collected on: 08/23/24 at 1303([address] [place] [address]) This is an edited result. Previous organism was Gram-positive cocci on 08/24/2024 at 0543 EDT. MAGNESIUMon 08-26-2024 Magnesium [Mass/Vol] 2.1 mg/dL Normal 1.6-2.6 [facility] Comment on above: Result Comment: THEODORA [place] COMMENTS: Higher values can be expected in females during menses. Performed By: #### L [id number] #### Cable Rigger: RORO LUNDBERG ([id number]) [facility] ([facility]) [address] [place] [address] Magnesium [Mass/Vol]on 08-26 Higher values can be expected in females during menses. [facility] No Panel Informationon 08-26 Interpretation and review of laboratory results Abnormal [facility] Performed by: [place] [id number] CLIA ID: [id number] [facility] Interpretation and review of laboratory results Abnormal [facility] Performed by: [place] [address] CLIA ID: [id number] [facility] Interpretation and review of laboratory results Abnormal [facility] Performed by: [facility], [address] [place] [address] CLIA ID: [id number] [facility] Interpretation and review of laboratory results Abnormal [facility] Performed by: [facility], [address] [place] [address] CLIA ID: [id number] [facility] Interpretation and review of laboratory results Normal [facility] PHOSPHORUSon 08-26-2024 Phosphate [Mass/Vol] 2.9 mg/dL Normal 2.3-4.7 [facility] [address] [facility] Comment on above: Performed By: #### L [id number] #### Cable Rigger: RORO LUNDBERG ([id number]) [facility] ([facility]) [address] [place], [place] [id number] [facility] Phosphate [Moles/Vol]on 07-30 Phosphate [Mass/Vol] 2.9 mg/dL 2.3 - 4 .7 mg/dL [facility] Progress Noteon 08-26-2024 Progress Note Attestation [...] Gonzales : 1980 AGE: 44 y.o. Room/Bed: [facility]/[address] Admission Date: 08/23/2024 Visit Date: 08/26/2024 Reason for Endocrine Consult: Type 1 diabetes mellitus on insulin pump. Provider/Team Requesting Consult: Brayan Barros PCP: Kristal Sullivan MD Outpt Nursing Professor: Yes . Jace Ko MD at outside [...] insulin pump. 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 SUBJECTIVE/HPI: CHIEF COMPLAINT: No chief complaint [...] No mu (more content not included)... Normal [facility] Progress Note Attestation with edits by [...] blood culture finalization 7AM-5PM: contact resident on [facility] Med D (find by hovering over attending's [...] 13.0 ABGs: No results for input(s): PHART, ZAA1DOQ, PO2ART, MLI3YUT, SO2ART, P1MAEXSY in the last 72 hours. Lactic Acid: [...] content not included)... [facility] [id number] 08-25-2024 [id number] Dialysis cath removed yesterday for line holiday. If HD needed a temp line can be placed per ID. Repeat culture ordered- 1 set pending. IV ancef continued- possible need for machine operator hop picker abx. GI s/o. Hepatobiliary surg consulted. Endo/ [...] above: Performed By: #### L [id number] #### Cable Rigger: RORO LUNDBERG ([id number]) [address] Bacteria identified Cx Nom (Bld) BLOOD CULTURE Reference No growth at 5 days ORDER COMMENTS: Blood Collection Site: Left Arm [ S = SUSCEPTIBLE R = RESISTANT I = INTERMEDIATE S-DD = Susceptible-dose dependent NS = Non-susceptible NO = No Interpretation ] [facility] Comment on above: Performed By: #### L [id number] ####Cable Rigger: RORO LUNDBERG ([id number])[address] C. DIFFICILE BY PCR WITH REF CESAR TO EIAon 08-25-2024 C. DIFFICILE BY PCR WITH REFLEX TO EIA C. DIFFICILE TOXIN PCR Reference Not Detected Not Detected ORDER COMMENTS: C. difficile infection is unlikely to be present. Methodology: Real-time PCR [facility] Comment on above: Performed By: #### L [id number] ####Cable Rigger: RORO LUNDBERG ([id number])[facility] ([facility])[address] [place] [address] C. difficile toxin genes LAVERN +probe Ql (Stl)on 08-25-2024 C. difficile toxin B tcdB gene LAVERN+probe Ql (Stl) Not detected Not Detected [facility] Interpretation and review of laboratory results Normal [facility] C. difficile infection is unlikely to be present. Methodology: Real-time PCR [facility] CBC W Auto Differential pane l (Bld)on 08-25-2024 Basophils (Bld) [#/Vol] 0 10*3/uL 0.0 - 0.2 10*3/uL [facility] Basophils/100 WBC (Bld) 0.4 % 0.0 - 2.0 % [facility] Eosinophils (Bld) [#/Vol] 0.2 10*3/uL 0. 0 - 0.5 10*3/uL [facility] Eosinophils/100 WBC (Bld) 3.1 % 0.0 - 6.0 % [facility] Erythrocyte distribution width (RBC) [Ratio] 13 % 11.5 - 15.0 % [facility] Hematocrit (Bld) [Volume fraction] 28.2 % Low 40.0 - 52.0 % [facility] Hemoglobin (Bld) [Mass/Vol] 9.6 g/dL Low 13.0 - 18.0 g/dL [facility] Immature granulocytes (Bld) [#/Vol] 0 10*3/uL NINF - 0.1 10*3/uL [facility] Immature granulocytes/100 WBC (Bld) 0.6 % 0.0 - 2.0 % [facility] Interpretation and review of laboratory results Abnormal [facility] Lymphocytes (Bld) [#/Vol] 0.7 10*3/uL Low 1. 0 - 4.3 10*3/uL [facility] Lymphocytes/100 WBC (Bld) 10 % Low 15 .0 - 45.0 % [facility] MCH (RBC) [Entitic mass] 30.6 pg 26. 0 - 34.0 pg [facility] MCHC (RBC) [Mass/Vol] 34 % 30.5 - 36.0 % [facility] MCV (RBC) [Entitic vol] 89.8 fL 77.0 - 99.0 fL [facility] Monocytes (Bld) [#/Vol] 0.5 10*3/uL 0.0 - 0.9 10*3/uL [facility] Monocytes/100 WBC (Bld) 7.4 % 5.0 - 13.0 % [facility] Neutrophils (Bld) [#/Vol] 5.3 10*3/uL 1. 8 - 7.5 10*3/uL [facility] Neutrophils/100 WBC (Bld) 78.5 % 38 .0 - 82.0 % [facility] Nucleated RBC/100 WBC (Bld) [Ratio] 0 % [facility] Platelet mean volume (Bld) [Entitic vol] 10.1 fL 9.0 - 12.7 fL [facility] Platelets (Bld) [#/Vol] 171 10*3/uL 140 - 440 10*3/uL [facility] RBC (Bld) [#/Vol] 3.14 10*6/uL Low 4.40 - 5.9 0 10*6/uL [facility] WBC (Bld) [#/Vol] 6.8 10*3/uL 3.6 - 10.7 10*3/uL [facility] CBC WITH AUTO DIFFERENTIALon 08-25-2024 Basophils (Bld) [#/Vol] 0.0 10*3/uL Normal 0.0-0.2 [facility] Comment on above: Performed By: #### L [id number] #### Cable Rigger: RORO LUNDBERG ([id number]) [address] Basophils/100 WBC (Bld) 0.4 % Normal 0.0-2.0 [facility] Comment on above: Performed By: #### L [id number] #### Cable Rigger: RORO [id number]) [facility]) [address] [place] [address] Eosinophils (Bld) [#/Vol] 0.2 10*3/uL Normal 0.0-0.5 [facility] Comment on above: Performed By: #### L [id number] #### Cable Rigger: RORO [id number]) [facility]) [address] [place] [address] Eosinophils/100 WBC (Bld) 3.1 % Normal 0.0-6.0 [facility] Comment on above: Performed By: #### L [id number] #### Cable Rigger: RORO LUNDBERG ([id number]) [facility]) [address] [place] [address] Erythrocyte distribution width (RBC) [Ratio] 13.0 % Normal 11.5-15.0 [facility] Comment on above: Performed By: #### L [id number] #### Cable Rigger: RORO LUNDBERG ([id number]) [facility]) [address] [place] [address] Hematocrit (Bld) [Volume fraction] 28.2 % Low 40.0-52.0 [facility] Comment on above: Performed By: #### L [id number] #### Cable Rigger: RORO LUNDBERG ([id number]) [facility]) [address] [place] [address] Hemoglobin (Bld) [Mass/Vol] 9.6 g/dL Low 13.0-18. 0 [facility] Comment on above: Performed By: #### L [id number] #### Cable Rigger: RORO LUNDBERG ([id number]) [facility]) [address] [place] [address] IMMATURE GRANS % 0.6 % Normal 0.0-2.0 [facility] Comment on above: Performed By: #### L [id number] #### Cable Rigger: RORO LUNDBERG ([id number]) [facility]) [address] [place] [address] IMMATURE GRANS ABSOLUTE 0.0 10*3/uL Normal <0.1 [facility] Comment on above: Performed By: #### L [id number] #### Cable Rigger: RORO LUNDBERG ([id number]) [facility]) [address] [place] [address] [place] Lymphocytes (Bld) [#/Vol] 0.7 10*3/uL Low 1.0-4.3 [facility] Comment on above: Performed By: #### L [id number] #### Cable Rigger: RORO LUNDBERG ([id number]) [facility]) [address] [place] [address] Lymphocytes/100 WBC (Bld) 10.0 % Low 15.0-45.0 [facility] Comment on above: Performed By: #### L [id number] #### Cable Rigger: RORO LUNDBERG ([id number]) [facility] ([facility]) [address] [place] [address] MCH (RBC) [Entitic mass] 30.6 pg Normal 26.0-34.0 [facility] Comment on above: Performed By: #### L [id number] #### Cable Rigger: RORO LUNDBERG ([id number]) [facility]) [address] [place] [address] MCHC 34.0 % Normal 30.5-36.0 [facility] Comment on above: Performed By: #### L [id number] #### Cable Rigger: RORO LUNDBERG ([id number]) [facility]) [address] [place] [address] MCV (RBC) [Entitic vol] 89.8 fL Normal 77.0-99.0 [facility] Comment on above: Performed By: #### L [id number] #### Cable Rigger: RORO LUNDBERG ([id number]) [facility]) [address] [place] [address] Monocytes (Bld) [#/Vol] 0.5 10*3/uL Normal 0.0-0.9 [facility] Comment on above: Performed By: #### L [id number] #### Cable Rigger: RORO LUNDBERG ([id number]) [facility]) [address] [place] [address] Monocytes/100 WBC (Bld) 7.4 % Normal 5.0-13.0 [facility] Comment on above: Performed By: #### L [id number] #### Cable Rigger: RORO LUNDBERG ([id number]) [facility] ([facility]) [address] [place] [address] NEUTROPHILS ABSOLUTE 5.3 10*3/uL Normal 1.8-7.5 [facility] Comment on above: Performed By: #### L [id number] #### Cable Rigger: RORO LUNDBERG ([id number]) [facility] ([facility]) [address] [place] [address] Neutrophils/100 WBC (Bld) 78.5 % Normal 38.0-82.0 [facility] Comment on above: Performed By: #### L [id number] #### Cable Rigger: RORO LUNDBERG ([id number]) [facility] ([facility]) [address] [place] [address] NRBC 0.0 /100 WBCs Normal 0.0-2.0 [facility] Comment on above: Performed By: #### L [id number] #### Cable Rigger: RORO LUNDBERG ([id number]) [facility] ([facility]) [address] [place] [address] Platelet mean volume (Bld) [Entitic vol] 10.1 fL Normal 9.0-12.7 [facility] Comment on above: Performed By: #### L [id number] #### Cable Rigger: RORO LUNDBERG ([id number]) [facility] ([facility]) [address] [place] [address] [place] Platelets (Bld) [#/Vol] 171 10*3/uL Normal 140-440 [facility] Comment on above: Performed By: #### L [id number] #### Cable Rigger: RORO LUNDBERG ([id number]) [facility] ([facility]) [address] [place] [address] RBC (Bld) [#/Vol] 3.14 10*6/uL Low 4.40-5.90 [facility] Comment on above: Performed By: #### L [id number] #### Cable Rigger: RORO LUNDBERG ([id number]) [facility] ([facility]) [address] [place] [address] WBC (Bld) [#/Vol] 6.8 10*3/uL Normal 3.6-10.7 [facility] Comment on above: Performed By: #### L [id number] #### Cable Rigger: RORO LUNDBERG ([id number]) [facility] ([facility]) [address] [place] [address] COMPREHENSIVE METABOLIC PANE Jose 08-25-2024 Albumin [Mass/Vol] 3.1 g/dL Low 3.5-5.0 [facility] Comment on above: Performed By: #### L [id number], [id number], [id number] ####Cable Rigger: RORO LUNDBERG ([id number])[facility] ([facility])[address] [place] [address] ALP [Catalytic activity/Vol] 128 U/L Normal 40-150 [facility] Comment on above: Performed By: #### L [id number], [id number], [id number] ####Cable Rigger: RORO LUNDBERG ([id number])[facility] ([facility])[address] [place] [address] ALT [Catalytic activity/Vol] 63 U/L High <40 [facility] Comment on above: Performed By: #### L [id number], [id number], [id number] ####Cable Rigger: RORO LUNDBERG ([id number])[facility] ([facility])[address] [place] [address] Anion gap [Moles/Vol] 13 mmol/L Normal 3-13 [facility] Comment on above: Performed By: #### L [id number], [id number], [id number] ####Cable Rigger: RORO LUNDBERG ([id number])[facility])[address] [place] [address] AST [Catalytic activity/Vol] 110 U/L High <34 [facility] Comment on above: Performed By: #### L [id number], [id number], [id number] ####Cable Rigger: RORO LUNDBERG ([id number])[facility])[address] [place] [address] Bilirubin [Mass/Vol] 0.4 mg/dL Normal <1.2 [facility] Comment on above: Performed By: #### L AB17, [id number], [id number] ####Cable Rigger: RORO LUNDBERG ([id number])[facility])[address] [place] [address] Calcium [Mass/Vol] 9.5 mg/dL Normal 8.4-10.2 [facility] Comment on above: Performed By: #### L AB17, [id number], [id number] ####Cable Rigger: RORO LUNDBERG ([id number])[facility] ([facility])[address] [place] [address] Chloride [Moles/Vol] 98 mmol/L Normal 98-107 [facility] Comment on above: Performed By: #### L AB17, [id number], [id number] ####Cable Rigger: RORO LUNDBERG ([id number])[facility] ([facility])[address] [place] [address] CO2 [Moles/Vol] 24 mmol/L Normal 22-29 [facility] Comment on above: Performed By: #### L AB17, [id number], [id number] ####Cable Rigger: RORO LUNDBERG ([id number])[facility] ([facility])[address] [place] [address] Creatinine [Mass/Vol] 7.05 mg/dL High 0.72-1.25 [facility] Comment on above: Performed By: #### L AB17, [id number], [id number] ####Cable Rigger: RORO LUNDBERG ([id number])[facility] ([facility])[address] [place] [address] [place] GLOMERULAR FILTRATION RATE ML/MIN/1.73 SQ M.PREDICTED 9.2 mL/min/1.73m*2 Low >60.0 [facility] Comment on above: Result Comment: Calc ulation based on the Chronic Kidney Disease Epidemiology Collaboration (CKD-EPI) equation refit without adjustment for race Performed By: #### L AB17, [id number], [id number] ####Cable Rigger: RORO LUNDBERG ([id number])[facility])[address] [place] [address] Glucose [Mass/Vol] 128 mg/dL High 74-100 [facility] Comment on above: Performed By: #### L AB17, [id number], [id number] ####Cable Rigger: RORO LUNDBERG ([id number])[facility])[address] [place] [address] Potassium [Moles/Vol] 3.5 mmol/L Normal 3.5-5.1 [facility] Comment on above: Result Comment: [facility] potassium values may be up to 0.5 mmol/L lower than serum values. Performed By: #### L AB17, [id number], [id number] ####Cable Rigger: RORO LUNDBERG ([id number])[facility])[address] [place] [address] Protein [Mass/Vol] 6.7 g/dL Normal 6.4-8.3 [facility] Comment on above: Performed By: #### L AB17, [id number], HET595 ####Cable Rigger: RORO LUNDBERG ([id number])[facility])[address] [place] [address] Sodium [Moles/Vol] 135 mmol/L Low 136-145 [facility] Comment on above: Performed By: #### L AB17, [id number], [id number] ####Cable Rigger: RORO LUNDBERG ([id number])[facility])[address] [place] [address] Urea nitrogen [Mass/Vol] 43 mg/dL High 8-21 [facility] Comment on above: Performed By: #### L AB17, [id number], [id number] ####Cable Rigger: RORO LUNDBERG ([id number])[facility])[address] [place] [address] Comprehensive metabolic 1998 panelon 08-25-2024 Albumin [Mass/Vol] 3.1 g/dL Low 3.5 - 5.0 g/dL [facility] ALP [Catalytic activity/Vol] 128 U/L 40 - 150 U/L [facility] ALT [Catalytic activity/Vol] 63 U/L High NINF - 40 U/L [facility] Anion gap [Moles/Vol] 13 mmol/L 3 - 13 mmol/L [facility] AST [Catalytic activity/Vol] 110 U/L High NINF - 34 U/L [facility] Bilirubin [Mass/Vol] 0.4 mg/dL NINF - 1.2 mg/dL [facility] Calcium [Mass/Vol] 9.5 mg/dL 8.4 - 10. 2 mg/dL [facility] Chloride [Moles/Vol] 98 mmol/L 98 - 10 7 mmol/L [facility] CO2 [Moles/Vol] 24 mmol/L 22 - 29 mmol/L [facility] Creatinine [Mass/Vol] 7.05 mg/dL High 0.72 - 1.25 mg/dL [facility] GFR/1.73 sq M.predicted (S/P/Bld) [Vol rate/Area] 9.2 mL/min Low - PINF [facility] Comment on above: Calculation based on the Chronic Kidney Disease Epidemiology Collaboration (CKD-EPI) equation refit without adjustment for race Glucose [Mass/Vol] 128 mg/dL High 74 - 100 mg/dL [facility] Interpretation and review of laboratory results Abnormal [facility] Potassium [Moles/Vol] 3.5 mmol/L 3.5 - 5.1 mmol/L [facility] Comment on above: Plasma potassium willie ues may be up to 0.5 mmol/L lower than serum values. Protein [Mass/Vol] 6.7 g/dL 6.4 - 8.3 g/dL [facility] Sodium [Moles/Vol] 135 mmol/L Low 136 - 145 mmol/L [facility] Urea nitrogen [Mass/Vol] 43 mg/dL High 8 - 21 mg/d L [facility] Consulton 08-25-2024 Consult Attestation signed by Lio [...] T1DM, ESRD on HD via TDC, HTN, [place] s/p stent March 2024 on ASA who presented 08/24/24 from [place] with concern for sepsis. Fevers, hypotension, tachycardia. MSSA bacteremia presumed due to TDC. He states that he had an MRI at [place] which showed a hemangioma. He denies abdominal [...] right liver mass - requested MRI from [place] which reportedly shows liver hemangioma. Asymptomatic. No s (more content not included)... Normal [facility] Culture, Blood (WB)on 2024 CUB Normal [facility] Comment on above: Performed By: #### M 100.636, L300.3900, L500.4050, L300.4310, L503.6005, L100.0100, M200.1000 ####[facility] [id number] [place], [place], [id number] Laboratory - Chemistry and C hemistry - challengeon 08-25-2024 Glucose [Mass/Vol] 349 mg/dL High 70 - 100 mg/dL [facility] Glucose [Mass/Vol] 302 mg/dL High 70 - 100 mg/dL [facility] Glucose [Mass/Vol] 292 mg/dL High 70 - 100 mg/dL [facility] Glucose [Mass/Vol] 276 mg/dL High 70 - 100 mg/dL [facility] Glucose [Mass/Vol] 225 mg/dL High 70 - 100 mg/dL [facility] Magnesium [Mass/Vol] 2.1 mg/dL 1.6 - 2 .6 mg/dL [facility] MAGNESIUMon 08-25-2024 Magnesium [Mass/Vol] 2.1 mg/dL Normal 1.6-2.6 [facility] Comment on above: Result Comment: THEODORA R COMMENTS: Higher values can be expected in females during menses. Performed By: #### L AB17, [id number], [id number] ####Cable Rigger: RORO LUNDBERG ([id number])[facility] ([facility])[address] [place] [address] Magnesium [Mass/Vol]on 08-25 Higher values can be expected in females during menses. [facility] [address] No Panel Informationon 08-25 Interpretation and review of laboratory results Abnormal [facility] Performed by: [facility], [address] [place] [address] CLIA ID: [id number] [facility] [address] [facility] Interpretation and review of laboratory results Abnormal [facility] Performed by: [address] [address] CLIA ID: [id number] [facility] [address] [facility] Interpretation and review of laboratory results Abnormal [facility] Performed by: [facility], [address] [place] [address] CLIA ID: [id number] [facility] [address] [facility] Interpretation and review of laboratory results Abnormal [facility] Performed by: [address] [address] CLIA ID: [id number] [facility] [address] [facility] Interpretation and review of laboratory results Abnormal [facility] Performed by: [facility], [address] [place] [address] CLIA ID: [id number] [facility] [address] [facility] Interpretation and review of laboratory results Normal [facility] Nursing Noteon 08-25-2024 Nursing Note Patient Name: Farrah Gonzales Patient : 1980 Acct: [id number] Date of Admission: 08/23/2024 [facility] A Code Status: Full Code Allergies: Allergies[1] [...] 4 Other (Comment) None (Room air) Clear [place] Warm;Dry Soft;Flat Active None None None None [...] - Before each treatment: Dialysis Machine No.: [id number] RO Machine Number: [id number] Dialyzer Lot No.: [id number] Tubing Lot Number: [id number] [employer] Secure: Yes Venous Parameters Set: Yes Arterial Parameters Set: Yes NS Bag: Yes Saline Line Double Clamped: Yes Dialyzer: Nipro Prime Volume (mL): 200 mL RO Machine Number: [id number] RO Machine Log Sheet Completed: Yes Machine Alarm Self Test: Completed, Passed (1655) (08/25/241655) Air Foam Detector: Tested, Proper Function, pH Reading Extracorporeal Circuit Tested for Integrity: Yes Machine Conductivity: 14.0 Manual Conductivity: 13.8 Manual Ph: 7.4 Bleach Test (Neg): Yes Bath Temperature: 36 ?C (96.8 ?F) Conductivity Meter Serial #: [id number] Machine Functioning Alarm Free? Yes Dialysis Bath: K+ (Potassium): 3 Ca+ (Calcium): 2.5 Na+ (Sodium): 137 HCO3 (Bicarb): 32 Bicarbonate Concentrate Lot No.: [id number] Acid Concentrate Lot No.: [id number] Chlorine Testing - Before each treatment and [...] 80 6 (more content not included)... Normal [facility] Nursing Note Instructed patient to turn off insulin pump per endocrine order last pm. Patient confirmed insulin pump is off. Normal [facility] PHOSPHORUSon 08-25-2024 Phosphate [Mass/Vol] 3.9 mg/dL Normal 2.3-4.7 [facility] Comment on above: Performed By: #### L AB17, [id number], [id number] ####Cable Rigger: RORO LUNDBERG ([id number])[facility] ([address] Phosphate [Moles/Vol]on 07-30 Phosphate [Mass/Vol] 3.9 mg/dL 2.3 - 4 .7 mg/dL [facility] Progress Noteon 08-25-2024 Progress Note Attestation [...] Gonzales : 1980 AGE: 44 y.o. Room[facility]: [facility] A Admission Date: 08/23/2024 Visit Date: 08/25/2024 Reason for Endocrine Consult: Type 1 diabetes mellitus on insulin pump. Provider/Team Requesting Consult: Brayan Barros PCP: Kristal Sullivan MD Outpt Nursing Professor: Yes . Jace Ko MD at outside [...] insulin pump. 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 SUBJECTIVE/HPI: CHIEF COMPLAINT: No chief complaint [...] for the last 3 years, with a [employer] G6 CGM. He uses auto mode on [...] No whee (more content not included)... 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 from [place] ED for diagnosis of sepsis. In ED [...] On: Kcal/kg Weight Used for Energy Requirements: [place] Weight for Energy Calculation (kg): 7 (more [...] on line holiday 7AM-5PM: contact resident on [facility] Med D (find by hovering over attending's name on left side of patient's chart) 5PM-7AM: contact AI3 res Med Team Progress Note Farrah Gonzales : 1980(44 y.o.) Date: August 25, 2024 Med Team: Jamarcus Attending: aVdim Chief Complaint: Fever/Body Aches Subjective: - No [...] 13.0 ABGs: No results for input(s): PHART, VDR8EQQ, PO2ART, HDV4MLK, SO2ART, P7OEKOPB in the last 72 hours. Lactic Acid: [...] acid r (more content not included)... Normal [facility] RF Guidance for removal of t [...] Electronically Signed Date/Time: 08/25/2024 10:14 AM EDT [employer] Patient Name: FARRAH GONZALES : 1980 Exam Date/Time: 08/24/2024 17:05 Procedure: IR CVC TUNNELED CATHETER REMOVAL Ordering Provider: PHELAN CARL Reason For Exam: remove tunneled central line PROCEDURE: Tunneled central venous catheter removal Procedural Personnel Attending physician(s): Keith Jones DR Indication: Catheter no longer needed Additional clinical history: None Complications: No immediate complications. [facility] VSE EVAKUATORY ROSSII SYSTEM Keith Jones MD - 08/25/2024 Patient [...] Electronically Signed Date/Time: 08/25/2024 10:14 AM EDT [employer] RF Guidance for removal of t unneled CV catheterOrdered By: Keith Jones on 08-25-[address] Phone: US Heart TransthoracicOrdere d By: Ludin Ramires on 08-25-2024 Ao Root Index 1.57 cm/m2 [facility] Phone: Aortic Arch [address] Phone: Aortic Root 3.[address] Phone: Aortic valve Mean systole pressure gradient by US.doppler derived full Bernoulli 3 mmHg [facility] Phone: Aortic valve Orifice area by US 4.[address] Phone: Aortic valve Peak systolic flow by US.doppler 0.9 m/s [facility] Phone: Ascending Aorta 3 cm [facility] [employer] Phone: Ascending Aorta Index 1.43 cm/m2 [facility] Work Phone: AV Area by Peak Velocity 3.6 cm2 [employer] Work Phone: [phone] AV Area by VTI 3.5 cm2 [employer] Work Phone: AV Peak Gradient 6 mmHg [facility] Phone: AV Peak Velocity 1.2 m/s [employer] Work Phone: AV Velocity Ratio 0.92 [facility] [facility] Work Phone: AV VTI 23.8 cm [employer] Work Phone: CARLOS/BSA Peak Velocity 1.7 cm2/m2 [place] [address] [employer] Work Phone: CARLOS/BSA VTI 1.7 cm2/m2 [facility] Phone: [phone] Fractional Shortening 2D 34 % 28 - 44 % [employer] Work Phone: [phone] Global Longitudinal Strain -10.8 % [facility] Phone: [phone] Interpretation and review of laboratory results Abnormal [facility] Work Phone: IVC Diameter 1.7 cm [employer] Work Phone: [phone] IVSd 1.1 cm Abnormal 0.6 - 1.[address] Phone: [phone] LA Diameter 3.[address] Phone: [phone] LA Size Index 1.81 cm/m2 [address] Phone: [phone] LA Volume 2C 46 mL 18 - 58 mL [employer] Work Phone: [phone] LA Volume 4C 57 mL 18 - [address] Phone: [phone] LA Volume A/L 57 mL [employer] Work Phone: LA Volume BP 54 mL 18 - 58 mL [employer] Work Phone: [phone] LA Volume Index 2C 22 mL/m2 16 - 34 mL/m2 [employer] Work Phone: [phone] LA Volume Index 4C 27 mL/m2 16 - 34 mL/m2 [employer] Work Phone: [phone] LA Volume Index A/L 27 mL/m2 16 - 34 mL/m2 [facility] Work Phone: LA Volume Index BP 26 ml/m2 16 - 34 ml/m2 [facility] Work Phone: LA/AO Root Ratio 1.15 [facility] [address] [employer] Work Phone: Left ventricular Ejection fraction by US.2D+Calculated by biplane method of disks 66 % 55 - 100 % [facility] [employer] Work Phone: LV E' Lateral Velocity 11 cm/s [facility] Work Phone: LV E' Septal Velocity 6 cm/s [place] [employer] [employer] Work Phone: LV EDV A2C 71 mL [facility] [address] [employer] Work Phone: LV EDV A4C 100 mL [facility] [employer] [employer] Work Phone: LV EDV BP 85 mL 67 - 155 mL [facility] [employer] Work Phone: LV EDV Index A2C 34 mL/m2 [facility] [employer] [employer] Work Phone: LV EDV Index A4C 48 mL/m2 [facility] [employer] Work Phone: LV EDV Index BP 40 mL/m2 [facility] [employer] Work Phone: LV Ejection Fraction A2C 63 % [facility] [employer] Work Phone: LV Ejection Fraction A4C 68 % [facility] [employer] [employer] Work Phone: LV ESV A2C 26 mL [facility] [employer] [employer] Work Phone: LV ESV A4C 32 mL [facility] [employer] Work Phone: LV ESV BP 29 mL 22 - 58 mL [facility] [employer] Work Phone: LV ESV Index A2C 12 mL/m2 [facility] [employer] [employer] Work Phone: LV ESV Index A4C 15 mL/m2 [facility] [employer] Work Phone: LV ESV Index BP 14 mL/m2 [facility] [employer] Work Phone: LV Mass 2D 153.2 g 88 - 224 g [facility] [employer] Work Phone: LV Mass 2D Index 73 g/m2 49 - 115 g/m2 [facility] [employer] Work Phone: LV RWT Ratio 0.68 [facility] Work Phone: LVIDd 3.8 cm Abnormal 4.2 - 5.9 cm [facility] [employer] Work Phone: LVIDd Index 1.81 cm/m2 [facility] [employer] Work Phone: LVIDs 2.5 cm [facility] Work Phone: LVIDs Index 1.19 cm/m2 [facility] [employer] Work Phone: LVOT Cardiac Output 19.2 liter/minute [place] [facility] Work Phone: LVOT Diameter 2.3 cm [facility] [employer] Work Phone: LVOT Mean Gradient 3 mmHg [facility] [employer] Work Phone: LVOT Peak Gradient 5 mmHg [facility] [employer] Work Phone: LVOT Peak Velocity 1.1 m/s [facility] [employer] Work Phone: LVOT Stroke Volume Index 41.7 mL/m2 [facility] [employer] Work Phone: LVOT SV 87.6 ml [facility] [employer] Work Phone: LVOT VTI 21.1 cm [facility] [employer] Work Phone: LVOT:AV VTI Index 0.89 [facility] [employer] Work Phone: LVPWd 1.3 cm Abnormal 0.6 - 1.0 cm [facility] [employer] Work Phone: Pulmonary Artery EDP 11 mmHg [place] [employer] Work Phone: PV Max Velocity 0.9 m/s [facility] [employer] Work Phone: PV Mean Gradient 2 mmHg [facility] [employer] Work Phone: PV Mean Velocity 0.6 m/s [facility] [employer] Work Phone: PV Peak Gradient 3 mmHg [facility] [employer] Work Phone: RA Area 4C 34.3 mL [facility] [employer] Work Phone: RA Area 4C 32.6 mL [facility] [employer] Work Phone: RV Basal Dimension 2.9 cm [facility] [employer] Phone: [phone] RV Free Wall Peak S' 14 cm/s [facility] [address] [employer] Work Phone: RV Longitudinal Dimension 7.4 cm [facility] [employer] Phone: [phone] RV Mid Dimension 2.4 cm [facility] [employer] Phone: RVOT Mean Gradient 1 mmHg [facility] [employer] Phone: RVOT Peak Gradient 2 mmHg [facility] [employer] Phone: RVOT Peak Velocity 0.8 m/s [facility] [employer] Phone: RVOT VTI 14.9 cm [facility] [employer] Phone: Sinotubular Junction 2.3 cm [facility] [employer] Phone: TAPSE 2.4 cm 1.7 cm [facility] [employer] Phone: [phone] [facility] [employer] Phone: Heart Transthoracicon Left Ventricle: Left ventricle [...] Cultureon 08-25-2024 [facility] Mixed Gram Positive Organisms [place] Count 25,000-50,000 MIXC Mixed contaminants. Submit a new specimen if indicated. Normal [facility] Comment on above: Performed By: #### M 100.678, L400.0001, M100.2200 ####[facility] [address] [place], [address] [id number] 08-24-2024 [id number] Pt adm for tx/ eval of sepsis- transfer from [place] [facility]. HD- MWF. IV zosyn/ vanc continued. Respiratory culture positive. BC positive. XR chest/ CT abd pelvis completed. Echo pending. Per nursing pt is vomiting today. GI/ID consulted. Anticipate discharge home. 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 Normal [facility] [employer] [facility] Bacteria identified Aer cx N om (Lower resp)on 08-24-2024 Gram Stain Result Many Epithelial cells per low power field Abnormal [employer] Gram Stain Result Few Polymorphonuclear leukocytes per low power field Abnormal [facility] [employer] Gram Stain Result Positive Abnormal [facility] [employer] Gram Stain Result Negative Abnormal [facility] [employer] Gram Stain Result Smear contains >= 15 squamous cells per low power field, suggestive of poor quality. Culture not performed. Please re-collect if clinically indicated. Abnormal [employer] Interpretation and review of laboratory results Abnormal [facility] [employer] CBC W Auto Differential pane l (Bld)Ordered By: Venkata Lopes on 08-24-2024 Basophils (Bld) [#/Vol] 0 10*3/uL 0.0 - 0.2 10*3/uL [facility] Basophils/100 WBC (Bld) 0.4 % 0.0 - 2.0 % [facility] Eosinophils (Bld) [#/Vol] 0 10*3/uL 0. 0 - 0.5 10*3/uL [facility] Eosinophils/100 WBC (Bld) 0.1 % 0.0 - 6.0 % [facility] Erythrocyte distribution width (RBC) [Ratio] 13 % 11.5 - 15.0 % [facility] Hematocrit (Bld) [Volume fraction] 28.3 % Low 40.0 - 52.0 % [facility] Hemoglobin (Bld) [Mass/Vol] 9.6 g/dL Low 13.0 - 18.0 g/dL [facility] Immature granulocytes (Bld) [#/Vol] 0.1 10*3/uL High NINF - 0.1 10*3/uL [facility] Immature granulocytes/100 WBC (Bld) 0.9 % 0.0 - 2.0 % [facility] Interpretation and review of laboratory results Abnormal [facility] Lymphocytes (Bld) [#/Vol] 0.4 10*3/uL Low 1. 0 - 4.3 10*3/uL [facility] Lymphocytes/100 WBC (Bld) 3.7 % Low 15 .0 - 45.0 % [facility] MCH (RBC) [Entitic mass] 30.5 pg 26. 0 - 34.0 pg [facility] MCHC (RBC) [Mass/Vol] 33.9 % 30.5 - 36.0 % [facility] MCV (RBC) [Entitic vol] 89.8 fL 77.0 - 99.0 fL [facility] Monocytes (Bld) [#/Vol] 0.7 10*3/uL 0.0 - 0.9 10*3/uL [facility] Monocytes/100 WBC (Bld) 6.9 % 5.0 - 13.0 % [facility] Neutrophils (Bld) [#/Vol] 9.4 10*3/uL High 1. 8 - 7.5 10*3/uL [facility] Neutrophils/100 WBC (Bld) 88 % High 38 .0 - 82.0 % [facility] Nucleated RBC/100 WBC (Bld) [Ratio] 0 % [facility] Platelet mean volume (Bld) [Entitic vol] 9.8 fL 9.0 - 12.7 fL [facility] Platelets (Bld) [#/Vol] 153 10*3/uL 140 - 440 10*3/uL [facility] RBC (Bld) [#/Vol] 3.15 10*6/uL Low 4.40 - 5.9 0 10*6/uL [facility] WBC (Bld) [#/Vol] 10.7 10*3/uL 3.6 - 10.7 10*3/uL [facility] CBC WITH AUTO DIFFERENTIALon 08-24-2024 Basophils (Bld) [#/Vol] 0.0 10*3/uL Normal 0.0-0.2 [facility] Comment on above: Performed By: #### L [id number] ####[employer]: RORO LUNDBERG ([id number])[facility])[address] [place] [address] Basophils/100 WBC (Bld) 0.4 % Normal 0.0-2.0 [facility] Comment on above: Performed By: #### L [id number] ####[employer]: RORO LUNDBERG ([id number])[facility] ([facility])[address] [place] [address] [place] Eosinophils (Bld) [#/Vol] 0.0 10*3/uL Normal 0.0-0.5 [facility] Comment on above: Performed By: #### L [id number] ####[employer]: RORO LUNDBERG ([id number])[facility] ([facility])[address] [place] [address] [place] Eosinophils/100 WBC (Bld) 0.1 % Normal 0.0-6.0 [facility] Comment on above: Performed By: #### L [id number] ####[employer]: RORO LUNDBERG ([id number])[facility])[address] [place] [address] Erythrocyte distribution width (RBC) [Ratio] 13.0 % Normal 11.5-15.0 [facility] Comment on above: Performed By: #### L [id number] ####[employer]: RORO LUNDBERG ([id number])[facility])[address] [place] [address] Hematocrit (Bld) [Volume fraction] 28.3 % Low 40.0-52.0 [facility] Comment on above: Performed By: #### L [id number] ####Cable R[employer]: RORO LUNDBERG ([id number])[facility])[address] [place] [address] Hemoglobin (Bld) [Mass/Vol] 9.6 g/dL Low 13.0-18. 0 [facility] Comment on above: Performed By: #### L [id number] ####C[employer] R[employer]: RORO LUNDBERG ([id number])[facility])[address] [place] [address] IMMATURE GRANS % 0.9 % Normal 0.0-2.0 [facility] Comment on above: Performed By: #### L [id number] ####Cable Rigger: RORO LUNDBERG ([id number])[facility])[address] [place] [address] IMMATURE GRANS ABSOLUTE 0.1 10*3/uL High <0.1 [facility] Comment on above: Performed By: #### L [id number] ####C[employer] R[employer]: RORO LUNDBERG ([id number])[facility])[address] [place] [address] Lymphocytes (Bld) [#/Vol] 0.4 10*3/uL Low 1.0-4.3 [facility] Comment on above: Performed By: #### L [id number] ####C[employer] Rigger: RORO LUNDBERG ([id number])[facility])[address] [place] [address] Lymphocytes/100 WBC (Bld) 3.7 % Low 15.0-45.0 [facility] Comment on above: Performed By: #### L [id number] ####[employer]: RORO LUNDBERG ([id number])[facility])[address] [place] [address] MCH (RBC) [Entitic mass] 30.5 pg Normal 26.0-34.0 [facility] Comment on above: Performed By: #### L [id number] ####C[employer] R[employer]: RORO LUNDBERG ([id number])[facility])[address] [place] [address] MCHC 33.9 % Normal 30.5-36.0 [facility] Comment on above: Performed By: #### L [id number] ####C[employer] R[employer]: RORO LUNDBERG ([id number])[facility])[address] [place] [address] MCV (RBC) [Entitic vol] 89.8 fL Normal 77.0-99.0 [facility] Comment on above: Performed By: #### L [id number] ####C[employer] R[employer]: RORO LUNDBERG ([id number])[facility])[address] [place] [address] Monocytes (Bld) [#/Vol] 0.7 10*3/uL Normal 0.0-0.9 [facility] Comment on above: Performed By: #### L [id number] ####[employer]: RORO LUNDBERG ([id number])[facility])[address] [place] [address] Monocytes/100 WBC (Bld) 6.9 % Normal 5.0-13.0 [facility] Comment on above: Performed By: #### L [id number] ####C[employer] R[employer]: RORO LUNDBERG ([id number])[facility])[address] [place] [address] NEUTROPHILS ABSOLUTE 9.4 10*3/uL High 1.8-7.5 [facility] Comment on above: Performed By: #### L [id number] ####[employer]: RORO LUNDBERG ([id number])[facility])[address] [place] [address] Neutrophils/100 WBC (Bld) 88.0 % High 38.0-82.0 [facility] Comment on above: Performed By: #### L [id number] ####[employer]: RORO LUNDBERG ([id number])[facility])[address] [place] [address] NRBC 0.0 /100 WBCs Normal 0.0-2.0 [facility] Comment on above: Performed By: #### L [id number] ####[employer]: RORO LUNDBERG ([id number])[facility] ([facility])[address] [place] [address] Platelet mean volume (Bld) [Entitic vol] 9.8 fL Normal 9.0-12.7 [facility] Comment on above: Performed By: #### L [id number] ####C[employer] Rigger: RORO LUNDBERG ([id number])[facility])[address] [place] [address] Platelets (Bld) [#/Vol] 153 10*3/uL Normal 140-440 [facility] Comment on above: Performed By: #### L [id number] ####C[employer] Rigger: RORO LUNDBERG ([id number])[facility] ([facility])[address] [place] [address] RBC (Bld) [#/Vol] 3.15 10*6/uL Low 4.40-5.90 [facility] Comment on above: Performed By: #### L [id number] ####[employer] Rigger: RORO LUNDBERG ([id number])[facility] ([facility])[address] [place] [address] WBC (Bld) [#/Vol] 10.7 10*3/uL Normal 3.6-10.7 [facility] Comment on above: Performed By: #### L [id number] ####Cable Rigger: RORO LUNDBERG ([id number])[facility])[address] [place] [address] COMPLETE URINALYSIS WITH REF CESAR TO CULTUREon 08-24-2024 BACTERIA (#/HPF) IN URINE Negative Normal Negative [facility] Comment on above: Performed By: #### L [id number] ####C[employer] Rigger: RORO LUNDBERG ([id number])[facility])[address] [place] [address] BILIRUBIN, TOTAL PRESENCE IN URINE Negative Normal Negative [facility] Comment on above: Performed By: #### L [id number] ####[employer]: RORO LUNDBERG ([id number])[facility])[address] [place] [address] Clarity (U) Clear Normal Clear [facility] Comment on above: Performed By: #### L [id number] ####[employer]: RORO LUNDBERG ([id number])[facility])[address] [place] [address] Color (U) Colorless Normal Lt. Yellow [facility] Comment on above: Performed By: #### L [id number] ####[employer]: RORO LUNDBERG ([id number])[facility])[address] [place] [address] GLUCOSE (MG/DL) IN URINE 1,000 mg/dL Abnormal Normal (<7 0) [facility] Comment on above: Performed By: #### L [id number] ####[employer]: RORO LUNDBERG ([id number])[facility])[address] [place] [address] HEMOGLOBIN PRESENCE IN URINE 0.06 mg/dL Abnormal Negative [facility] Comment on above: Performed By: #### L [id number] ####C[employer]: RORO LUNDBERG ([id number])[facility])[address] [place] [address] HYALINE CASTS (#/LPF) IN URINE SEDIMENT BY MICROSCOPY Negative Normal Negative [facility] Comment on above: Performed By: #### L [id number] ####C[employer] Rigger: RORO LUNDBERG ([id number])[facility])[address] [place] [address] Ketones Ql (U) Trace Abnormal Negative [facility] Comment on above: Performed By: #### L [id number] ####[employer]igger: RORO LUNDBERG ([id number])[facility])[address] [place] [address] LEUKOCYTE ESTERASE PRESENCE IN URINE BY TEST STRIP Negative Normal Negative [facility] Comment on above: Performed By: #### L [id number] ####Cable Rigger: RORO LUNDBERG ([id number])[facility])[address] [place] [address] NITRITE PRESENCE IN URINE Negative Normal Negative [facility] Comment on above: Performed By: #### L [id number] ####C[employer] Rigger: RORO LUNDBERG ([id number])[facility])[address] [place] [address] pH (U) 7.5 [pH] Normal 5.0-8.0 [facility] Comment on above: Performed By: #### L [id number] ####[employer]: RORO LUNDBERG ([id number])[facility])[address] [place] [address] Protein (U) [Mass/Vol] 200 mg/dL Abnormal Negative [facility] Comment on above: Performed By: #### L [id number] ####C[employer] Rigger: RORO LUNDBERG ([id number])[facility])[address] [place] [address] RBC (#/HPF) IN URINE SEDIMENT 0-2 Normal 0-2 [facility] Comment on above: Performed By: #### L [id number] ####C[employer] Rigger: RORO LUNDBERG ([id number])[facility])[address] [place] [address] Specific gravity (U) [Rel density] 1.018 Normal 1.005-1.030 [facility] Comment on above: Result Comment: [place] COMMENTS: A specimen with <=10 WBC is not consistent with inflammation. This specimen will not reflex to a urine culture. Performed By: #### L [id number] ####Cable Rigger: RORO LUNDBERG ([id number])[facility] ([facility])[address] [place] [address] [place] SQUAMOUS EPITHELIAL CELLS (#/HPF) IN URINE SEDIMENT Negative Normal 3-5 [facility] Comment on above: Performed By: #### L [id number] ####Cable Rigger: RORO LUNDBERG ([id number])[facility] ([facility])[address] [place] [address] UROBILINOGEN (MG/DL) IN URINE Normal Normal Normal (0-1) [facility] Comment on above: Performed By: #### L [id number] ####Cable Rigger: RORO LUNDBERG ([id number])[facility])[address] [place] [address] WBC (LEUKOCYTE) (#/HPF) IN URINE SEDIMENT 0-2 Normal 0-5 [facility] Comment on above: Performed By: #### L [id number] ####Cable Rigger: RORO LUNDBERG ([id number])[facility])[address] [place] [address] COMPREHENSIVE METABOLIC PANE Jose 08-24-2024 Albumin [Mass/Vol] 2.9 g/dL Low 3.5-5.0 [facility] Comment on above: Performed By: #### L AB99, LAB17, [id number], [id number] ####C[employer] Rigger: RORO LUNDBERG ([id number])[facility])[address] [place] [address] ALP [Catalytic activity/Vol] 80 U/L Normal 40-150 [facility] Comment on above: Performed By: #### L AB99, LAB17, [id number], [id number] ####Cable Rigger: RORO LUNDBERG ([id number])[facility] ([facility])[address] [place] [address] [place] ALT [Catalytic activity/Vol] 37 U/L Normal <40 [facility] Comment on above: Performed By: #### L AB99, LAB17, [id number], [id number] ####C[employer] Rigger: RORO LUNDBERG ([id number])[facility])[address] [place] [address] Anion gap [Moles/Vol] 15 mmol/L High 3-13 [facility] Comment on above: Performed By: #### L AB99, LAB17, [id number], [id number] ####Cable Rigger: RORO LUNDBERG ([id number])[facility])[address] [place] [address] AST [Catalytic activity/Vol] 81 U/L High <34 [facility] Comment on above: Result Comment: TC Potential interference from hemolysis Performed By: #### L AB99, LAB17, [id number], [id number] ####Cable Rigger: RORO LUNDBERG ([id number])[facility])[address] [place] [address] Bilirubin [Mass/Vol] 0.5 mg/dL Normal <1.2 [facility] Comment on above: Performed By: #### L AB99, LAB17, [id number], [id number] ####Cable Rigger: RORO LUNDBERG ([id number])[facility])[address] [place] [address] Calcium [Mass/Vol] 8.8 mg/dL Normal 8.4-10.2 [facility] Comment on above: Performed By: #### L AB99, LAB17, [id number], [id number] ####C[employer]: RORO LUNDBERG ([id number])[facility])[address] [place] [address] Chloride [Moles/Vol] 101 mmol/L Normal 98-107 [facility] Comment on above: Performed By: #### L AB99, LAB17, [id number], [id number] ####C[employer] Rigger: RORO LUNDBERG ([id number])[facility])[address] [place] [address] [place] CO2 [Moles/Vol] 19 mmol/L Low 22-29 [facility] Comment on above: Performed By: #### L AB99, LAB17, [id number], [id number] ####Cable Rigger: RORO LUNDBERG ([id number])[facility])[address] [place] [address] Creatinine [Mass/Vol] 5.47 mg/dL High 0.72-1.25 [facility] Comment on above: Performed By: #### L AB99, LAB17, [id number], [id number] ####Cable Rigger: RORO LUNDBERG ([phone])[facility])[address] [place] [address] GLOMERULAR FILTRATION RATE ML/MIN/1.73 SQ M.PREDICTED 12.5 mL/min/1.73m*2 Low >60.0 [facility] Comment on above: Result Comment: Calc ulation based on the Chronic Kidney Disease Epidemiology Collaboration (CKD-EPI) equation refit without adjustment for race Performed By: #### L AB99, LAB17, [id number], [id number] ####Cable Rigger: ROOR LUNDBERG ([id number])[facility])[address] [place] [address] Glucose [Mass/Vol] 140 mg/dL High 74-100 [facility] Comment on above: Performed By: #### L AB99, LAB17, [id number], [id number] ####Cable Rigger: RORO LUNDBERG ([id number])[facility])[address] [place] [place] [address] Potassium [Moles/Vol] 4.0 mmol/L Normal 3.5-5.1 [facility] Comment on above: Result Comment: [facility] potassium values may be up to 0.5 mmol/L lower than serum values. Performed By: #### L AB99, LAB17, [id number], [id number] ####Cable Rigger: RORO LUNDBERG ([id number])[facility] ([facility])[address] [place] [address] [place] Protein [Mass/Vol] 6.2 g/dL Low 6.4-8.3 [facility] Comment on above: Performed By: #### L AB99, LAB17, [id number], [id number] ####Cable Rigger: RORO LUNDBERG ([id number])[facility])[address] [place] [address] Sodium [Moles/Vol] 135 mmol/L Low 136-145 [facility] Comment on above: Performed By: #### L AB99, LAB17, FZP929, [id number] ####Cable Rigger: RORO LUNDBERG ([id number])[facility] ([facility])[address] [place] [address] Urea nitrogen [Mass/Vol] 27 mg/dL High 8-21 [facility] Comment on above: Performed By: #### L AB99, LAB17, [id number], [id number] ####Cable Rigger: RORO LUNDBERG ([id number])[facility] ([facility])[address] [place] [address] Comprehensive metabolic 1998 panelOrdered By: Brenda Gleason on 08-24-2024 Albumin [Mass/Vol] 2.9 g/dL Low 3.5 - 5.0 g/dL [facility] ALP [Catalytic activity/Vol] 80 U/L 40 - 150 U/L [facility] ALT [Catalytic activity/Vol] 37 U/L NINF - 40 U/L [facility] Anion gap [Moles/Vol] 15 mmol/L High 3 - 13 mmol/L [facility] AST [Catalytic activity/Vol] 81 U/L [facility]/L [facility] Comment on above: TC Potential interference from hemolysis Bilirubin [Mass/Vol] 0.5 mg/dL NINF - 1.2 mg/dL [facility] Calcium [Mass/Vol] 8.8 mg/dL 8.4 - 10. 2 mg/dL [facility] Chloride [Moles/Vol] 101 mmol/L 98 - 10 7 mmol/L [facility] CO2 [Moles/Vol] 19 mmol/L Low 22 - 29 mmol/L [facility] Creatinine [Mass/Vol] 5.47 mg/dL High 0.72 - 1.25 mg/dL [facility] GFR/1.73 sq M.predicted (S/P/Bld) [Vol rate/Area] 12.5 mL/min Low - PINF [facility] Comment on above: Calculation based on the Chronic Kidney Disease Epidemiology Collaboration (CKD-EPI) equation refit without adjustment for race Glucose [Mass/Vol] 140 mg/dL High 74 - 100 mg/dL [facility] Interpretation and review of laboratory results Abnormal [facility] Potassium [Moles/Vol] 4 mmol/L 3.5 - 5.1 mmol/L [facility] Comment on above: Plasma potassium willie ues may be up to 0.5 mmol/L lower than serum values. Protein [Mass/Vol] 6.2 g/dL Low 6.4 - 8.3 g/dL [facility] Sodium [Moles/Vol] 135 mmol/L Low 136 - 145 mmol/L [facility] Urea nitrogen [Mass/Vol] 27 mg/dL High 8 - 21 mg/d L [facility] Consulton 08-24-2024 Consult Department of Internal Medicine [...] HTN who presents as a transfer from [place] ED with sepsis (T 103, BP 93/78. [...] Resource Strain: Low Risk (07/02/2022) Received from [facility] Overall Financial Resource Strain (CARDIA) Difficulty of Paying Living Expenses: Not hard at all Food Insecurity: No Food Insecurity (07/02/2022) Received from [facility] Hunger Vital Sign Worried About Running Out of Food in the Last Year: Never true Ran Out of Food in the Last Year: Never true Transportation Needs: No Transportation Needs (07/02/2022) Received from [facility] PRAPARE - Transportation Lack of Transportation (Medical): No Lack of Transportation (Non-Medical): No Physical Activity: Inactive (07/02/2022) Received from [facility] Exercise Vital Sign Days of Exercise per Week: 0 days Minutes of Exercise per Session: 0 min Stress: No Stress Concern Present (07/02/2022) Received from [facility] [place] [employer] - Occupational Stress Questionnaire Feeling of Stress : Not at all Social Connections: Socially Integrated (07/02/2022) Received from [facility] Social Connection and Isolation Panel [NHANES] Frequency of Communication with Friends and Family: More than three times a week Frequency of Social Gatherings with Friends and Family: More than three times a week Attends Latter Day Services: More than 4 times per year Active Member of Clubs or Organizations: Yes Attends Club or Organization Meetings: More than 4 times per year Marital Status: Living with partner Intimate Partner Violence: Not on file Housing Stability: Low Risk (07/02/2022) Received from [facility] Housing Stability Vital Sign Unable to [...] supple Psychi (more content not included)... Normal [facility] Consult [facility] - Infectious Diseases Advanced Practice Provider Consult Note Reason for Consult: MSSA bacteremia History of Present Illness: 44 yo male with PMHx significant for T1DM, ESRD via TDC, and HTN who presents 08/23 from [place] ED with fever, hypotension, tachycardia concerning for [...] 10.7, lactic acid 1.5, procal 5.94, BNP 28013. CXR negative. CT chest/abd/pelvis performed and without [...] Resource Strain: Low Risk (07/02/2022) Received from [facility] Overall Financial Resource Strain (CARDIA) Difficulty of Paying Living Expenses: Not hard at all Food Insecurity: No Food Insecurity (07/02/2022) Received from [facility] Hunger Vital Sign Worried About Running Out of Food in the Last Year: Never true Ran Out of Food in the Last Year: Never true Transportation Needs: No Transportation Needs (07/02/2022) Received from [facility] PRAPARE - Transportation Lack of Transportation (Medical): No Lack of Transportation (Non-Medical): No Physical Activity: Inactive (07/02/2022) Received from [facility] Exercise Vital Sign Days of Exercise per Week: 0 days Minutes of Exercise per Session: 0 min Stress: No Stress Concern Present (07/02/2022) Received from [facility] [place] [employer]ational Health - Occupational Stress Questionnaire Feeling of Stress : Not at all Social Connections: Socially Integrated (07/02/2022) Received from [facility] Social Connection and Isolation Panel [NHANES] Frequency of Communication with Friends and Family: More than three times a week Frequency of Social Gatherings with Friends and Family: More than three times a week Attends Latter Day Services: More than 4 times per year Active Member of Clubs or Organizations: Yes Attends Club or Organization Meetings: More than 4 times per year Marital Status: Living with partner Intimate Partner Violence: Not on file Housing Stability: Low Risk (07/02/2022) Received from [facility] Housing Stability Vital Sign Unable to [...] % - (more content not included)... Normal [facility] DRUGS OF ABUSEon 08-24-2024 AMPHETAMINE SCREEN Negative Normal [facility] Comment on above: Performed By: #### L [id number] #### Cable Rigger: RORO LUNDBERG ([id number]) [facility]) [address] [place] [address] BARBITURATES SCREEN Negative Normal [facility] Comment on above: Performed By: #### L [id number] #### Cable Rigger: RORO LUNDBERG ([id number]) [facility] ([facility]) [address] [place] [address] BENZODIAZEPINE SCREEN Negative Normal [facility] Comment on above: Performed By: #### L [id number] #### Cable Rigger: RORO LUNDBERG ([id number]) [facility] ([facility]) [address] [place] [address] COCAINE METAB. SCREEN Negative Normal [facility] Comment on above: Performed By: #### L [id number] #### Cable Rigger: RORO LUNDBERG ([id number]) [facility]) [address] [place] [address] FENTANYL SCREEN, UR QUAL Negative Normal [facility] Comment on above: [...] order. Performed By: #### L [id number] #### Cable Rigger: RORO LUNDBERG ([id number]) [facility] ([facility]) [address] [place] [address] METHADONE SCREEN Negative Normal [facility] Comment on above: Performed By: #### L [id number] #### Cable Rigger: RORO LUNDBERG ([id number]) [facility]) [address] [place] [address] OPIATES SCREEN Negative Normal [facility] Comment on above: Performed By: #### L [id number] #### Cable Rigger: RORO LUNDBERG ([id number]) [facility] ([facility]) [address] [place] [address] OXYCODONE SCREEN Negative Normal [facility] Comment on above: Performed By: #### L [id number] #### Cable Rigger: RORO LUNDBERG ([id number]) [facility]) [address] [place] [address] PHENCYCLIDINE SCREEN Negative Normal [facility] Comment on above: Performed By: #### L [id number] #### Cable Rigger: RORO LUNDBERG ([id number]) [facility]) [address] [place] [address] ECG 12-LEADon 08-24-2024 ECG 12-LEAD IMPRESSION: Sinus tachycardia Consider anterior infarct Nonspecific T abnormalities, lateral leads No previous ECG available for comparison Electronically Signed On 08-24-2024 16:44:35 EDT by [facility] ECG 12-LEAD IMPRESSION: Sinus tachycardia Nonspecific T abnormalities, lateral leads Electronically Signed On 08-24-2024 16:43:02 EDT by [facility] LEGIONELLA AND STREPTOCOCCUS URINE ANTIGENon 08-24-2024 LEGIONELLA [...] Comment on above: Performed By: #### L [id number] ####Cable Rigger: RORO LUNDBERG ([id number])[facility] [place] [address] LIPASEon 08-24-2024 Lipase [Catalytic activity/Vol] 78 U/L High <55 [facility] Comment on above: Performed By: #### L AB99, LAB17, SSO168, [id number] ####Cable Rigger: RORO LUNDBERG ([id number])[facility] ([facility])[address] [place] [address] Laboratory - Chemistry and C hemistry - challengeon 08-24-2024 Glucose [Mass/Vol] 350 mg/dL High 70 - 100 mg/dL [facility] Glucose [Mass/Vol] 405 mg/dL High 70 - 100 mg/dL [facility] Glucose [Mass/Vol] 355 mg/dL High 70 - 100 mg/dL [facility] Lipase [Catalytic activity/Vol] 78 U/L High NINF - 55 U/L [facility] Magnesium [Mass/Vol] 1.9 mg/dL 1.6 - 2 .6 mg/dL [facility] Laboratory - Drug toxicology on 08-24-2024 Amphetamines Screen method >1000 ng/mL Ql (U) Negative [facility] Barbiturates Screen method >200 ng/mL Ql (U) Negative [facility] Benzodiazepines Ql (U) Negative [facility] Methadone Screen Ql (U) Negative [facility] Opiates Screen Ql (U) Negative [facility] oxyCODONE Ql (U) Negative [facility] Phencyclidine Ql (U) Negative [facility] Laboratory - Microbiology an d Antimicrobial susceptibilityon 08-24-2024 Bacteria identified Aer cx Nom (Lower resp) Culture canceled due to poor specimen quality. Recollect if clinically indicated. [facility] Lipase [Catalytic activity/V ol]on 08-24-2024 Interpretation and review of laboratory results Abnormal [facility] MAGNESIUMon 08-24-2024 Magnesium [Mass/Vol] 1.9 mg/dL Normal 1.6-2.6 [facility] Comment on above: Result Comment: THEODORA [place] COMMENTS: Higher values can be expected in females during menses. Performed By: #### L AB99, LAB17, [id number], [id number] ####Cable Rigger: RORO LUNDBERG ([id number])[facility] ([facility])[address] [place] [address] Magnesium [Mass/Vol]on 08-24 Higher values can be expected in females during menses. [facility] No Panel Informationon 08-24 Interpretation and review of laboratory results Abnormal [facility] Performed by: [facility] [employer] [facility], [address] [place] [address] CLIA ID: [id number] [facility] Interpretation and review of laboratory results Abnormal [facility] Performed by: [facility], [address] [place] [address] CLIA ID: [id number] [facility] Interpretation and review of laboratory results Abnormal [facility] Performed by: [facility] [employer] [facility], [address] [place] [address] CLIA ID: [id number] [facility] Sinus tachycardia Consider anterior infarct Nonspecific T abnormalities, lateral leads No previous ECG available for comparison Electronically Signed On 08-24-2024 16:44:35 EDT by Erick Stevens MD - 08/24/2024 IMPRESSION: Sinus tachycardia Consider anterior infarct Nonspecific T abnormalities, lateral leads No previous ECG available for comparison Electronically Signed On 08-24-2024 16:44:35 EDT by Erick Kirkland [facility] P [place] 28 degrees [facility] LA Interval 154 ms [facility] QRS [place] 61 degrees [facility] QRSD Interval 84 ms [facility] QT Interval 356 ms [facility] QTC Interval 466 ms [facility] T Wave [place] 101 degrees [facility] Sinus tachycardia Nonspecific T abnormalities, lateral leads Electronically Signed On 08-24-2024 16:43:02 EDT by Erick Kirkland CV Erick Decker MD - 08/24/2024 IMPRESSION: Sinus tachycardia Nonspecific T abnormalities, lateral leads Electronically Signed On 08-24-2024 16:43:02 EDT by Erick Kirkland [facility] Interpretation and review of laboratory results Normal [facility] Legionella pneumophila Ag Not detected Not Dete cted [facility] Streptococcus pneumoniae Ag Not detected Not De tected [facility] Methodology: Lateral flow enzyme immunoassay This assay is approved for detection of antigens to Streptococcus pneumoniae and Legionella pneumophila serogroup 1; however, other L. pneumophila serogroups may also be detected. [facility] Extra Tube Hold for add-ons. [facility] Comment on above: Auto resulted. [facility] Interpretation and review of laboratory results Normal [facility] COCAINE METAB. SCREEN Negative [facility] FENTANYL SCREEN, UR QUAL Negative [facility] The expected value for all of [...] is needed, request confirmation under separate order. [facility] No Panel InformationOrdered By: Erick Kirkland on 08-24-2024 P [place] 41 degrees [facility] [employer] Work Phone: [place] Interval [address] Phone: QRS [place] [address] Phone: QRSD Interval [address] Phone: QT Interval 323 ms [employer] Work Phone: QTC Interval [address] Phone: T Wave [place] [address] Phone: [address] Phone: No Panel InformationOrdered By: Huseyin Garcia on 08-24-2024 Interpretation and review of laboratory results Abnormal [facility] [address] mecA/C and MREJ (MRSA) Not detected Not Detecte d [facility] Staphylococcus aureus Detected Abnormal Not Detected [facility] Methodology: Multiplex PCR The [employer] BCID panel can detect the following organisms: [...] IMP, KPC, NDM, OXA-48-like, VIM, and mcr-1. [facility] Nursing Noteon 08-24-2024 Nursing Note CGM 344 Normal [facility] Nursing Note Central Line Removal [...] for the duration of the procedure. Normal [facility] Nursing Note CGM reading is 199 Normal [facility] Nursing Note Patients CGM reading 207 Normal [facility] PHOSPHORUSon 08-24-2024 Phosphate [Mass/Vol] 2.9 mg/dL Normal 2.3-4.7 [facility] Comment on above: Performed By: #### L AB99, LAB17, DSB410, [id number] ####Cable Rigger: RORO LUNDBERG ([id number])[address] Phosphate [Moles/Vol]on 07-30 Phosphate [Mass/Vol] 2.9 mg/dL 2.3 - 4 .7 mg/dL [facility] Progress Noteon 08-24-2024 Progress Note Attestation signed by Akbar Brown at 08/24/2024 2:37 PM Endocrinology Attending [...] Gonzales : 1980 AGE: 44 y.o. Room/Bed: [facility]/[address] Admission Date: 08/23/2024 Visit Date: 08/24/2024 Reason for Endocrine Consult: Type 1 diabetes mellitus on insulin pump. Provider/Team Requesting Consult: Brayan Barros PCP: Kristal Sullivan MD Outpt Nursing Professor: Yes . Jace Ko MD at outside [...] insulin pump. 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 SUBJECTIVE/HPI: CHIEF COMPLAINT: No chief complaint [...] for the last 3 years, with a [employer] G6 CGM. He uses auto mode on [...] filed at (more content not included)... Normal [facility] Progress Note Vancomycin therapy has been discontinued by Dr. Munson on 08/24/24. Thank you for the consult. Pharmacy signing off for vancomycin dosing. Jennifer Herrera, Jose Date: 08/24/24 Time: 7:38 AM Normal [facility] RESPIRATORY CULTURE AND STAI Non 08-24-2024 [...] Non-susceptible NO = No Interpretation ] Normal [facility] Comment on above: Performed By: #### L AB900 ####Cable Rigger: RORO LUNDBERG ([id number])[address] RF Guidance for removal of t unneled CV catheteron 08-24-2024 Radiology Study observation (narrative) [facility] Urinalysis complete panel (U )Ordered By: Lamin Johansen on 08-24-2024 Bacteria LM.HPF (Urine sed) [#/Area] Negative Negative /HPF [facility] Bilirubin Ql (U) Negative Negative mg/dL [facility] Clarity (U) Clear Clear [facility] Health Color (U) Colorless Lt. Yellow [facility] Epithelial cells.squamous LM.HPF (Urine sed) [#/Area] Negative [facility] Glucose Ql (U) 1,000 Abnormal Normal (<70) mg/dL [facility] Hemoglobin Ql (U) 0.06 mg/dL Abnormal Negative [facility] Hyaline casts Auto (Urine sed) [#/Area] Negative Negative /LPF [facility] Interpretation and review of laboratory results Abnormal [facility] Ketones (U) [Mass/Vol] Trace Abnormal Negat pedro mg/dL [facility] Leukocyte esterase Test strip Ql (U) Negative Negative [place]/uL [facility] Nitrite Ql (U) Negative Negative [facility] pH (U) 7.5 [pH] 5.0 - 8.0 pH [facility] Protein (U) [Mass/Vol] 200 mg/dL Abnormal Negative [facility] RBC LM.HPF (Urine sed) [#/Area] 0-2 [facility] Specific gravity (U) [Rel density] 1.018 1.005 - 1.030 [facility] Urobilinogen (U) [Mass/Vol] Normal Normal (0-1) mg/dL [facility] WBC LM.HPF (Urine sed) [#/Area] 0-2 [facility] A specimen with <=10 WBC is not consistent with inflammation. This specimen will not reflex to a urine culture. [facility] Vital signsOrdered By: Gianluca Kirkland on 08-24-2024 Heart rate 120 /min bpm [facility] Work Phone: Vital signson 08-24-2024 Heart rate 103 /min bpm [facility] 12 Lead EKGon 08-23-2024 12 Lead EKG Normal [facility] 30on 08-23-2024 30 Problem: Knowledge Deficit Goal: [...] by Mike Lopez RN Outcome: Progressing Normal [facility] 30 Problem: Knowledge Deficit Goal: [...] and maintained or improved Outcome: Progressing Normal [facility] Absolute lymphocyte countOrd ered By: Laurie Elizalde on 08-23-2024 Lymphocytes Auto (Unsp spec) [#/Vol] 0.36 10*3/uL Low 0.83-4.51 [facility] Absolute neutrophil countOrd ered By: Laurie Elizalde on 08-23-2024 Neutrophils (Bld) [#/Vol] 24.4 10*3/uL High 2.0-7.7 [facility] Activated partial thrombopla stin time (aPTT) in platelet poor plasma by coagulation aOrdered By: Laurie Elizalde on 08-23-2024 aPTT Coag (PPP) [Time] 28.3 s 24.1-36.2 [facility] Anion gap in Serum or Plasma Ordered By: Laurie Elizalde on 08-23-2024 Anion gap [Moles/Vol] 22 mmol/L High 5-15 [facility] Automated lymphocyte count a s percentage of total leukocytesOrdered By: Laurie Elizalde on 08-23-2024 Lymphocytes/100 WBC Auto (Unsp spec) 1.4 % Low 19-41 [facility] BC GPC IDon 08-23-2024 GPC ID Normal [facility] Comment on above: Performed By: #### M 100.636, L300.3900, L500.4050, L300.4310, L503.6005, L100.0100, M200.1000 ####[facility] [id number] [place], [address] BLOOD CULTUREon 08-23-2024 Bacteria identified Cx Nom [...] Non-susceptible NO = No Interpretation ] Normal [facility] Comment on above: Performed By: #### L [id number], [id number] ####Cable Rigger: RORO LUNDBERG ([id number])[address] Bacteria identified Cx Nom (Bld) BLOOD CULTURE (AA) Reference STAPHYLOCOCCUS AUREUS Staphylococcus aureus (AA) ID consult required per med staff policy dated 2021. For identification and/or sensitivity, refer to culture collected on: 08/23/24 at 1303([id number]) This is an edited result. Previous organism was Gram-positive cocci on 08/24/2024 at 0543 EDT. PBP2A Reference Negative ORDER COMMENTS: Blood Collection Site: Right Upper Arm [ S = SUSCEPTIBLE R = RESISTANT I = INTERMEDIATE S-DD = Susceptible-dose dependent NS = Non-susceptible NO = No Interpretation ] [facility] Comment on above: Performed By: #### L [id number] #### Cable Rigger: RORO LUNDBERG ([id number]) [facility] [address] [place] [address] BLOOD CULTURE IDENTIFICATION - AEROBICon 08-23-2024 BLOOD CULTURE IDENTIFICATION - AEROBIC STAPHYLOCOCCUS AUREUS, BLOOD (A) Reference Detected Not Detected MECA/C AND MREJ (MRSA), BLOOD Reference Not Detected Not Detected ORDER COMMENTS: Methodology: Multiplex PCR The [employer] BCID panel can detect the following organisms: [...] KPC, NDM, OXA-48-like, VIM, and mcr-1. Normal [facility] Comment on above: Performed By: #### L [id number], [id number] ####Cable Rigger: RORO LUNDBERG ([id number])[facility] [place] [address] BUN/creatinine ratioOrdered By: Laurie Elizalde on 08-23-2024 Urea nitrogen/Creatinine [Mass ratio] 6.1 mg/mg Low 10-20 [facility] Basophil percentageOrdered B y: Laurie Elizalde on 08-23-2024 Basophils/100 WBC (Bld) 0.3 % 0-1 [facility] Beta-Hydroxbytyrateon 2024 BETA-HYDROXYBUT 1.2 mmol/L Normal 0.0-0.3 [facility] Comment on above: Order Comment: ADD O N Performed By: #### L [id number] ####[facility] [address] [place], [place], [id number] Beta-hydroxybutyrateOrdered By: Laurie Elizalde on 08-23-2024 Beta hydroxybutyrate [Mass/Vol] 1.2 mmol/L 0.0-0.3 [facility] Bilirubin Test strip Ql (U)O rdered By: Laurie Elizalde on 08-23-2024 Bilirubin Ql (U) Negative Negative [facility] Bilirubin, totalOrdered By: Laurie Elizalde on 08-23-2024 Bilirubin [Mass/Vol] 0.41 mg/dL 0.00-1.30 [facility] Blood cultureOrdered By: Farrah Elizalde on 08-23-2024 Bacteria identified Cx Nom (Bld) Staphylococcus aureus Abnormal [facility] Blood manual differential co mment interpretation (narrative result)Ordered By: Laurie Elizalde on 08-23-2024 Manual differential comment Dilshad (Bld) [Interp] SCANNED [facility] Comment on above: NEUTROPHILIA PRESENT LYMPHOPENIA PRESENTLEFT SHIFT: BANDS PRESENT 1+ C-REACTIVE PROTEINon 025 CRP [Mass/Vol] 282.2 mg/L High <5.0 [facility] Comment on above: Performed By: #### L [id number] #### Cable Rigger: RORO LUNDBERG ([id number]) [address] CBC W Auto Differential pane l (Bld)Ordered By: Mindy James on 08-23-2024 Erythrocyte distribution width (RBC) [Ratio] 13 % 11.5 - 15.0 % [facility] Hematocrit (Bld) [Volume fraction] 29.5 % Low 40.0 - 52.0 % [facility] Hemoglobin (Bld) [Mass/Vol] 10.4 g/dL Low 13.0 - 18.0 g/dL [facility] Interpretation and review of laboratory results Abnormal [facility] MCH (RBC) [Entitic mass] 31.1 pg 26. 0 - 34.0 pg [facility] MCHC (RBC) [Mass/Vol] 35.3 % 30.5 - 36.0 % [facility] MCV (RBC) [Entitic vol] 88.3 fL 77.0 - 99.0 fL [facility] Platelet mean volume (Bld) [Entitic vol] 9.7 fL 9.0 - 12.7 fL [facility] Platelets (Bld) [#/Vol] 177 10*3/uL 140 - 440 10*3/uL [facility] RBC (Bld) [#/Vol] 3.34 10*6/uL Low 4.40 - 5.9 0 10*6/uL [facility] WBC (Bld) [#/Vol] 20.3 10*3/uL High 3.6 - 10.7 10*3/uL [facility] CBC W/Diff, Automatedon 07-30 SMEAR COMMENT SCANNED Normal [facility] Comment on above: Result Comment: NEUT ROPHILIA PRESENTLYMPHOPENIA PRESENTLEFT SHIFT: BANDS PRESENT 1+ Performed By: #### M 100.636, L300.3900, L500.4050, L300.4310, L503.6005, L100.0100, M200.1000 ####[facility] [address] [place], [place], [id number] CBC WITH AUTO DIFFERENTIALon 08-23-2024 Erythrocyte distribution width (RBC) [Ratio] 13.0 % Normal 11.5-15.0 [facility] Comment on above: Performed By: #### L [id number] #### Cable Rigger: RORO LUNDBERG ([id number]) [facility] ([facility]) [address] [place] [address] Hematocrit (Bld) [Volume fraction] 29.5 % Low 40.0-52.0 [facility] Comment on above: Performed By: #### L [id number] #### Cable Rigger: RORO LUNDBERG ([id number]) [facility] ([facility]) [address] [place] [address] Hemoglobin (Bld) [Mass/Vol] 10.4 g/dL Low 13.0-18. 0 [facility] Comment on above: Performed By: #### L [id number] #### Cable Rigger: RORO LUNDBERG ([id number]) [facility] [address] [place] [address] MCH (RBC) [Entitic mass] 31.1 pg Normal 26.0-34.0 [facility] Comment on above: Performed By: #### L [id number] #### Cable Rigger: RORO LUNDBERG ([id number]) [facility] ([facility]) [address] [place] [address] MCHC 35.3 % Normal 30.5-36.0 [facility] Comment on above: Performed By: #### L [id number] #### Cable Rigger: RORO LUNDBERG ([id number]) [facility] ([facility]) [address] [place] [address] MCV (RBC) [Entitic vol] 88.3 fL Normal 77.0-99.0 [facility] Comment on above: Performed By: #### L [id number] #### Cable Rigger: RORO LUNDBERG ([id number]) [facility] ([facility]) [address] [place] [address] Platelet mean volume (Bld) [Entitic vol] 9.7 fL Normal 9.0-12.7 [facility] Comment on above: Performed By: #### L [id number] #### Cable Rigger: RORO LUNDBERG ([id number]) [facility] ([facility]) [address] [place] [address] Platelets (Bld) [#/Vol] 177 10*3/uL Normal 140-440 [facility] Comment on above: Performed By: #### L [id number] #### Cable Rigger: RORO LUNDBERG ([id number]) [facility] ([facility]) [address] [place] [address] RBC (Bld) [#/Vol] 3.34 10*6/uL Low 4.40-5.90 [facility] Comment on above: Performed By: #### L [id number] #### Cable Rigger: RORO LUNDBERG ([id number]) [facility] ([facility]) [address] [place] [address] WBC (Bld) [#/Vol] 20.3 10*3/uL High 3.6-10.7 [facility] Comment on above: Performed By: #### L [id number] #### Cable Rigger: RORO LUNDBERG ([id number]) [facility] ([facility]) [address] [place] [address] CKon 08-23-2024 CK [Catalytic activity/Vol] 90 U/L Normal 30-185 [facility] Comment on above: Performed By: #### L [id number] #### Cable Rigger: RORO LUNDBERG ([id number]) [facility] ([facility]) [address] [place] [address] CK [Catalytic activity/Vol]o n 08-23-2024 Interpretation and review of laboratory results Normal [facility] METABOLIC PANE Jose 08-23-2024 Albumin [Mass/Vol] 3.3 g/dL Low 3.5-5.0 [facility] Comment on above: Performed By: #### L [id number] #### Cable Rigger: RORO LUNDBERG ([id number]) [facility] ([facility]) [address] [place] [address] ALP [Catalytic activity/Vol] 85 U/L Normal 40-150 [facility] Comment on above: Performed By: #### L [id number] #### Cable Rigger: RORO LUNDBERG ([id number]) [facility] ([facility]) [address] [place] [address] ALT [Catalytic activity/Vol] 10 U/L Normal <40 [facility] Comment on above: Performed By: #### L [id number] #### Cable Rigger: RORO LUNDBERG ([id number]) [facility] ([facility]) [address] [place] [address] Anion gap [Moles/Vol] 15 mmol/L High 3-13 [facility] Comment on above: Performed By: #### L [id number] #### Cable Rigger: RORO LUNDBERG ([id number]) [facility] ([facility]) [address] [place] [address] AST [Catalytic activity/Vol] 22 U/L Normal <34 [facility] Comment on above: Performed By: #### L [id number] #### Cable Rigger: RORO LUNDBERG ([id number]) [facility] ([facility]) [address] [place] [address] Bilirubin [Mass/Vol] 0.5 mg/dL Normal <1.2 [facility] Comment on above: Performed By: #### L [id number] #### Cable Rigger: RORO LUNDBERG ([id number]) [facility] ([facility]) [address] [place] [address] Calcium [Mass/Vol] 8.8 mg/dL Normal 8.4-10.2 [facility] Comment on above: Performed By: #### L [id number] #### Cable Rigger: RORO LUNDBERG ([id number]) [facility] ([facility]) [address] [place] [address] Chloride [Moles/Vol] 99 mmol/L Normal 98-107 [facility] Comment on above: Performed By: #### L [id number] #### Cable Rigger: RORO LUNDBERG ([id number]) [facility]) [address] [place] [address] CO2 [Moles/Vol] 20 mmol/L Low 22-29 [facility] Comment on above: Performed By: #### L [id number] #### Cable Rigger: RORO LUNDBERG ([id number]) [facility]) [address] [place] [address] Creatinine [Mass/Vol] 9.57 mg/dL High 0.72-1.25 [facility] Comment on above: Performed By: #### L [id number] #### Cable Rigger: RORO LUNDBERG ([id number]) [facility]) [address] [place] [address] GLOMERULAR FILTRATION RATE ML/MIN/1.73 SQ M.PREDICTED 6.4 mL/min/1.73m*2 Low >60.0 [facility] Comment on above: Result Comment: Calc ulation based on the Chronic Kidney Disease Epidemiology Collaboration (CKD-EPI) equation refit without adjustment for race Performed By: #### L [id number] #### Cable Rigger: RORO LUNDBERG ([id number]) [facility] ([facility]) [address] [place] [address] Glucose [Mass/Vol] 224 mg/dL High 74-100 [facility] Comment on above: Performed By: #### L [id number] #### Cable Rigger: RORO LUNDBERG ([id number]) [facility]) [address] [place] [address] Potassium [Moles/Vol] 4.4 mmol/L Normal 3.5-5.1 [facility] Comment on above: Result Comment: [facility] potassium values may be up to 0.5 mmol/L lower than serum values. Performed By: #### L [id number] #### Cable Rigger: RORO LUNDBERG ([id number]) [facility] ([facility]) [address] [place] [address] Protein [Mass/Vol] 6.4 g/dL Normal 6.4-8.3 [facility] Comment on above: Performed By: #### L [id number] #### Cable Rigger: RORO LUNDBERG ([id number]) [facility]) [address] [place] [address] Sodium [Moles/Vol] 134 mmol/L Low 136-145 [facility] Comment on above: Performed By: #### L [id number] #### Cable Rigger: RORO LUNDBERG ([id number]) [facility]) [address] [place] [address] [place] Urea nitrogen [Mass/Vol] 59 mg/dL High 8-21 [facility] Comment on above: Performed By: #### L [id number] #### Cable Rigger: RORO LUNDBERG ([id number]) [facility]) [address] [place] [address] CT Abdomen and Pelvis WO and W [...] MD Electronically Signed Date/Time: 08/23/2024 8:42 PM [facility] Julian Guillermo MD - 08/23/2024 [...] Electronically Signed Date/Time: 08/23/2024 8:42 PM EDT [facility] Radiology [facility] (narrative) [facility] Pel[facility] WO and W contrast IVOrdered By: Julian Guillermo on 08-23-2024 [employer] Work Phone: CT CHEST ABDOMEN PELVIS W CO NTRASTon 08-23-2024 CT CHEST ABDOMEN PELVIS W CONTRAST Patient Name: [facility]ARRAH [facility]ONZALES [facility] 1980 [id number] Exam Date/Time: 08/23/2024 14:56 Procedure: CT CHEST [...] stage renal failure - on dialysis Normal [facility] [address] [employer] [facility] Carbon dioxide, total [Moles /volume] in Central venous bloodOrdered By: Laurie Elizalde on 08-23-2024 CO2 [Moles/Vol] 19.1 mmol/L Low 21.0-32.0 [facility] Chest 1 View (Portable)on Chest 1 View (Portable) Normal [facility] Chloride assayOrdered By: Tito Elizalde on 08-23-2024 Chloride [Moles/Vol] 93 mmol/L Low 98-108 [facility] Comprehensive Metabolic Prof ilon 08-23-2024 Albumin [Mass/Vol] 4.7 g/dL Normal 3.5-5.0 [facility] Comment on above: Performed By: #### M 100.636, L300.3900, L500.4050, L300.4310, L503.6005, L100.0100, M200.1000 ####[facility] [address] [place], [address] Albumin/Globulin [Mass ratio] 1.6 {ratio} Normal 0.9-2.4 [facility] Comment on above: Performed By: #### M 100.636, L300.3900, L500.4050, L300.4310, L503.6005, L100.0100, M200.1000 ####[facility] [address] [place], [address] ALK PHOS 94 U/L Normal 40-129 [facility] Comment on above: Performed By: #### M 100.636, L300.3900, L500.4050, L300.4310, L503.6005, L100.0100, M200.1000 ####[facility] [address] [place], [address] ALT [Catalytic activity/Vol] 12 U/L Normal <=46 [facility] Comment on above: Performed By: #### M 100.636, L300.3900, L500.4050, L300.4310, L503.6005, L100.0100, M200.1000 ####[facility] [address] [place], [address] AST [Catalytic activity/Vol] 17 U/L Normal <=37 [facility] Comment on above: Performed By: #### M 100.636, L300.3900, L500.4050, L300.4310, L503.6005, L100.0100, M200.1000 ####[facility] [address] [place], [address] Bilirubin [Mass/Vol] 0.41 mg/dL Normal 0.00-1.30 [facility] Comment on above: Performed By: #### M 100.636, L300.3900, L500.4050, L300.4310, L503.6005, L100.0100, M200.1000 ####[facility] [address] [place], [address] BUN/CRE 6.1 RATIO Low 10-20 [facility] Comment on above: Performed By: #### M 100.636, L300.3900, L500.4050, L300.4310, L503.6005, L100.0100, M200.1000 ####[facility] [address] [place], [address] Calcium [Mass/Vol] 10.5 mg/dL Normal 7.6-11.0 [facility] Comment on above: Performed By: #### M 100.636, L300.3900, L500.4050, L300.4310, L503.6005, L100.0100, M200.1000 ####[facility] [address] [place], [address] Chloride [Moles/Vol] 93 mmol/L Low 98-108 [facility] Comment on above: Performed By: #### M 100.636, L300.3900, L500.4050, L300.4310, L503.6005, L100.0100, M200.1000 ####[facility] [address] [place], [address] CO2 [Moles/Vol] 19.1 mmol/L Low 21.0-32.0 [facility] Comment on above: Performed By: #### M 100.636, L300.3900, L500.4050, L300.4310, L503.6005, L100.0100, M200.1000 ####[facility] [address] [place], [place], [phone]) Creatinine [Mass/Vol] 8.87 mg/dL Invalid Interpretation Code 0.70-1.20 [facility] Comment on above: Result Comment: Crit ical Result(s) Called at: 0139 by:?? MONET CHILDS Results read back by same. Performed By: #### M 100.636, L300.3900, L500.4050, L300.4310, L503.6005, L100.0100, M200.1000 ####[facility] [address] [place], [place], [phone] ECRCL 11.55 ml/min Low 50-250 [facility] Comment on above: Performed By: #### M 100.636, L300.3900, L500.4050, L300.4310, L503.6005, L100.0100, M200.1000 ####[facility] [address] [place], [address] GAP 22 High 5-15 [facility] Comment on above: Performed By: #### M 100.636, L300.3900, L500.4050, L300.4310, L503.6005, L100.0100, M200.1000 ####[facility] [address] [place], [address] GFR/1.73 sq M.predicted among non-blacks MDRD (S/P/Bld) [Vol rate/Area] 7 mL/min/{1.73_m2} Low >60 [facility] Comment on above: Result Comment: mL/m in/1.73m2 CKD-EPI Creatinine Equation (2020) Performed By: #### M 100.636, L300.3900, L500.4050, L300.4310, L503.6005, L100.0100, M200.1000 ####[facility] [address] [place], [address] Globulin (S) [Mass/Vol] 3.0 g/dL Normal 2.2-4.2 [facility] Comment on above: Performed By: #### M 100.636, L300.3900, L500.4050, L300.4310, L503.6005, L100.0100, M200.1000 ####[facility] [address] [place], [address] Glucose [Mass/Vol] 220 mg/dL High 70-99 [facility] Comment on above: Performed By: #### M 100.636, L300.3900, L500.4050, L300.4310, L503.6005, L100.0100, M200.1000 ####[facility] [address] [place], [address] Potassium [Moles/Vol] 3.6 mmol/L Normal 3.3-5.1 [facility] Comment on above: Performed By: #### M 100.636, L300.3900, L500.4050, L300.4310, L503.6005, L100.0100, M200.1000 ####[facility] [address] [place], [address] Sodium [Moles/Vol] 135 mmol/L Normal 133-145 [facility] Comment on above: Performed By: #### M 100.636, L300.3900, L500.4050, L300.4310, L503.6005, L100.0100, M200.1000 ####[facility] [address] [place], [address] T PROT 7.6 g/dL Normal 5.9-8.4 [facility] Comment on above: Performed By: #### M 100.636, L300.3900, L500.4050, L300.4310, L503.6005, L100.0100, M200.1000 ####[facility] [address] [place], [address] Urea nitrogen [Mass/Vol] 54 mg/dL High 4-19 [facility] Comment on above: Performed By: #### M 100.636, L300.3900, L500.4050, L300.4310, L503.6005, L100.0100, M200.1000 ####[facility] [address] [place], [address] Comprehensive metabolic 1998 panelon 08-23-2024 Albumin [Mass/Vol] 3.3 g/dL Low 3.5 - 5.0 g/dL [facility] ALP [Catalytic activity/Vol] 85 U/L 40 - 150 U/L [facility] ALT [Catalytic activity/Vol] 10 U/L [facility] - 40 U/L [facility] Anion gap [Moles/Vol] 15 mmol/L High 3 - 13 mmol/L [facility] AST [Catalytic activity/Vol] 22 U/L [facility] - 34 U/L [facility] Bilirubin [Mass/Vol] 0.5 mg/dL [facility] mg/dL [facility] Calcium [Mass/Vol] 8.8 mg/dL 8.4 - 10. 2 mg/dL [facility] Chloride [Moles/Vol] 99 mmol/L 98 - 10 7 mmol/L [facility] CO2 [Moles/Vol] 20 mmol/L Low 22 - 29 mmol/L [facility] Creatinine [Mass/Vol] 9.57 mg/dL High 0.72 - 1.25 mg/dL [facility] GFR/1.73 sq M.predicted (S/P/Bld) [Vol rate/Area] 6.4 mL/min Low - PINF [facility] Comment on above: Calculation based on the Chronic Kidney Disease Epidemiology Collaboration (CKD-EPI) equation refit without adjustment for race Glucose [Mass/Vol] 224 mg/dL High 74 - 100 mg/dL [facility] [address] Potassium [Moles/Vol] 4.4 mmol/L 3.5 - 5.1 mmol/L [facility] [address] Comment on above: Plasma potassium willie ues may be up to 0.5 mmol/L lower than serum values. Protein [Mass/Vol] 6.4 g/dL 6.4 - 8.3 g/dL [facility] [address] Sodium [Moles/Vol] 134 mmol/L Low 136 - 145 mmol/L [facility] [address] Urea nitrogen [Mass/Vol] 59 mg/dL High 8 - 21 mg/d L [facility] [address] [employer] 08-23-2024 Consult [facility] [place] [address] [place] [address] Consult Note Patient's Name: Farrah [...] do not hesitate to contact me at [phone] with any concerns. Osmel Andrade MD 2:37 PM 08/23/2024 Chief Complaint: fever History Obtained From: patient and chart review History of Present Ilness: Farrah Gonzales is a 44 y.o. male with underlying history below who is currently being admitted to the hospital of workup for sepsis. Nephrology is consulted for management of end-stage renal disease Patient dialyzes at [facility] in [place] Friday. His last dialysis treatment was on [...] [] CrCl ml/min (Cockcroft-Gault, if ANN, no SUPPLIER DEVELOPMENT MANAGER) Consulted By: Brayan Barros Vancomycin Level: []Trough [...] Time: 1:53 PM Den GomesD (available on [employer]) [facility] Consult Department of Internal Medicine Division of Endocrinology, Diabetes, & Metabolism Endocrinology Note Patient Name: Farrah Gonzales : 1980 AGE: 44 y.o. Room/Bed: [facility]/[address] Admission Date: 08/23/2024 Visit Date: 08/23/2024 Reason for Endocrine Consult: Type 1 diabetes mellitus on insulin pump. Provider/Team Requesting Consult: Brayan Barros PCP: Kristal Sullivan MD Outpt Nursing Professor: Yes . Jace Ko MD at outside [...] insulin pump. 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 SUBJECTIVE/HPI: CHIEF COMPLAINT: No chief complaint on file. Farrah is a 44-year-old white male who was admitted with sepsis, to determine etiology. He has a history of type 1 diabetes mellitus since age 18. He has been on an OmniPod for the last 3 years, with a [employer] G6 CGM. He uses auto mode on [...] found for: CHOLHDLRATIO No results found for: SSYW16PCA No results found for: TSH, C1LZIWU, R8LKZWL, THYROIDAB Radiology reportsas per the Radiologist Radiology: [...] may re (more content not included)... Normal [facility] ESR (Bld) [Velocity]Ordered By: Suha Crow on 08-23-2024 Interpretation and review of laboratory results Abnormal [facility] Emergency Department Summary on 08-23-2024 Emergency Department Summary Normal [facility] Eosinophil percentageOrdered By: Laurie Elizalde on 08-23-2024 Eosinophils/100 WBC (Bld) 0.0 % 0-5 [facility] Erythrocyte distribution wid th ratioOrdered By: Laurie Elizalde on 08-23-2024 Erythrocyte distribution width (RBC) [Ratio] 12.6 % 11.6-14.6 [facility] Erythrocyte distribution wid th standard deviationOrdered By: Laurie Elizalde on 08-23-2024 Erythrocyte distribution width (RBC) [Ratio] 39.8 fl 35.1-43.9 [facility] Glomerular filtration rate ( GFR) estimation/1.73 sq m using serum, plasma, or whole bOrdered By: Laurie Elizalde on 08-23-2024 GFR/1.73 sq M.predicted among non-blacks MDRD (S/P/Bld) [Vol rate/Area] 7 mL/min/{1.73_m2} Low >60 [facility] Comment on above: mL/min/1.73m2 CKD-EP I Creatinine Equation (2020) HIGH SENSITIVITY TROPONIN, S ERIAL BASELINEon 08-23-2024 TROPONIN HS SERIAL BASELINE 59 ng/L High <=35 [facility] Comment on above: Result Comment: In i ndividuals presenting with symptoms > 2h, a baseline troponin <= 5 ng/L suggests acute cardiac injury is unlikely and further serial testing is generally not indicated. Performed By: #### L [id number] #### Cable Rigger: RORO LUNDBERG ([id number]) [facility] [address] [place] [address] HIGH SENSITIVITY TROPONIN, S ERIAL, SECOND TESTon 08-23-2024 2H TROPONIN HS (SERIAL 2ND TROPONIN) 57 ng/L High <=35 [facility] Comment on above: Result Comment: Risi ng or falling troponin delta below 2 ng/L as compared to baseline value suggests that acute cardiac injury is unlikely. Performed By: #### L [id number] #### Cable Rigger: RORO LUNDBERG ([id number]) [facility] ([facility]) [address] [place] [address] HIGH SENSITIVITY TROPONIN, S ERIAL, THIRD TESTon 08-23-2024 4H TROPONIN HS (SERIAL 3RD TROPONIN) 50 ng/L High <=35 [facility] Comment on above: Result Comment: 4h t roponin (3rd troponin) samples collected between 1h 40 min and 2h and 20 min of the 2h troponin collection time can be utilized to interpret delta troponins as per [facility] algorithms. Samples collected outside this timeframe need to be interpreted clinically. Rising or falling troponin delta between 2 ??? 15 ng/L as compared to 2h troponin value requires further evaluation. Performed By: #### L [id number] ####Cable Rigger: RORO LUNDBERG ([id number])[facility] [facility] [place] [address] Hematocrit Auto (Bld) [Volum e fraction]Ordered By: Laurie Elizalde on 08-23-2024 Hematocrit (Bld) [Volume fraction] 33.5 % Low 40-54 [facility] Hemoglobin measurementOrdere d By: Laurie Elizalde on 08-23-2024 Hemoglobin (Bld) [Mass/Vol] 11.9 g/dL Low 13.0-16. 5 [facility] Immature granulocytes/100 WB C Auto (Bld)Ordered By: Laurie Elizalde on 08-23-2024 Immature granulocytes/100 WBC (Bld) 1.500 % High 0.0-0.9 [facility] Comment on above: IG% - Immature Granu locytes (promyelocytes, myelocytes and metamyelocytes) > 1% indicates that a LEFT SHIFT is Present. Influenza virus A and B and SARS-CoV-2 (COVID-19) and Respiratory syncytial virus RNAOrdered By: Laurie Elizalde on 08-23-2024 SARS-CoV-2 (COVID-19) RNA LAVERN+probe Ql (Unsp spec) [facility] International normalized rat io (INR) calculationOrdered By: Laurie Elizalde on 08-23-2024 INR Coag (Bld) [Relative time] 1.1 {INR} [facility] Ketones Test strip Ql (U)Ord ered By: Laurie Elizalde on 08-23-2024 Ketones Ql (U) Negative Negative [facility] LACTIC ACID WITH REFLEXon Lactate [Moles/Vol] 1.5 mmol/L Normal 0.5-2.2 [facility] Comment on above: Performed By: #### L [id number] #### Cable Rigger: RORO LUNDBERG ([id number]) [facility] ([facility]) [address] [place] [address] Laboratory - Chemistry and C hemistry - challengeon 08-23-2024 Procalcitonin [Mass/Vol] 5.94 ng/mL High JOE F - 0.07 ng/mL [facility] TSH Qn 2.48 m[IU]/L [facility] CK [Catalytic activity/Vol] 90 U/L 30 - 185 U/L [facility] CRP [Mass/Vol] 282.2 mg/L High NINF - 5.0 mg/L [facility] Lactate [Moles/Vol] 1.5 mmol/L 0.5 - 2. 2 mmol/L [facility] Laboratory - Chemistry and C hemistry - challengeOrdered By: Laurie Elizalde on 08-23-2024 AST [Catalytic activity/Vol] 17 U/L <38 [facility] Laboratory - Hematology and Cell countson 08-23-2024 Band form neutrophils (Bld) [#/Vol] 2 10*3/uL High NINF - 0.0 10*3/uL [facility] Band form neutrophils/100 WBC (Bld) 10 % High NINF - 0 % [facility] Lymphocytes (Bld) [#/Vol] 0.8 10*3/uL Low 1. 0 - 4.3 10*3/uL [facility] Lymphocytes/100 WBC (Bld) 4 % Low 15 - 45 % [facility] Monocytes (Bld) [#/Vol] 0.6 10*3/uL 0.0 - 0.9 10*3/uL [facility] Monocytes/100 WBC (Bld) 3 % Low 5 - 13 % [facility] Neutrophils (Bld) [#/Vol] 18.9 10*3/uL High 1. 8 - 7.5 10*3/uL [facility] Ovalocytes LM Ql (Bld) Slight Abnormal (none) [facility] Poikilocytosis LM Ql (Bld) Slight Abnormal (none) [facility] RBC morphology finding Nom (Bld) abnormal [facility] Segmented neutrophils/100 WBC (Bld) 83 % High 38 - 82 % [facility] Laboratory - Hematology and Cell countsOrdered By: Suha Crow on 08-23-2024 ESR (Bld) [Velocity] 30 mm/h High [facility] Lactic Acidon 08-23-2024 Lactate [Moles/Vol] 1.1 mmol/L Normal 0.0-2.0 [facility] Comment on above: Performed By: #### L 503.6005 ####[facility] [address] [place], [place], [id number] Lactate [Moles/Vol] 2.5 mmol/L Invalid Interpretation Code 0.0-2.0 [facility] Comment on above: Order Comment: Y Result Comment: Crit ical Result(s) Called at: 0139 by:??MONET CHILDS Results read back by same. Performed By: #### M 100.636, L300.3900, L500.4050, L300.4310, L503.6005, L100.0100, M200.1000 ####[facility] [address] [place], [place], [id number] Lactic acid measurementOrder ed By: Laurie Elizalde on 08-23-2024 Lactate [Moles/Vol] 1.1 mmol/L 0.0-2.0 [facility] M100.678on 08-23-2024 M100.678 SARS-CoV-2 (COVID 19) Negative INFLUENZA A Negative INFLUENZA B Negative RSV PCR Negative Normal [facility] Comment on above: Performed By: #### M 100.678, L400.0001, M100.2200 ####[facility] [address] [place], [address] MANUAL DIFFERENTIAL (CELLAVI RODERICK)on 08-23-2024 BAND NEUTROPHILS TOTAL PER COUNTED LEUKOCYTES BY MANUAL COUNT 11 Normal [facility] Comment on above: Performed By: #### L [id number] #### Cable Rigger: RORO LUNDBERG ([id number]) [facility] ([facility]) [address] [place] [address] [place] BANDS (10*3/UL) IN BLOOD-CELLAVISION 2.0 10*3/uL High <=0.0 [facility] Comment on above: Performed By: #### L [id number] #### Cable Rigger: RORO LUNDBERG ([id number]) [facility] ([facility]) [address] [place] [address] [place] BASOPHILS TOTAL PER COUNTED LEUKOCYTES BY MANUAL COUNT Normal [facility] Comment on above: Performed By: #### L [id number] #### Cable Rigger: RORO LUNDBERG ([id number]) [facility] ([facility]) [address] [place] [address] [place] BLASTS TOTAL PER COUNTED LEUKOCYTES BY MANUAL COUNT [facility] Comment on above: Performed By: #### L [id number] #### Cable Rigger: RORO LUNDBERG ([id number]) [facility] ([facility]) [address] [place] [address] [place] EOSINOPHILS TOTAL PER COUNTED LEUKOCYTES BY MANUAL COUNT Normal [facility] Comment on above: Performed By: #### L [id number] #### Cable Rigger: RORO LUNDBERG ([id number]) [facility] ([facility]) [address] [place] [address] [place] LYMPHOCYTES (10*3/UL) IN BLOOD-CELLAVISION 0.8 10*3/uL Low 1.0-4.3 [facility] Comment on above: Performed By: #### L [id number] #### Cable Rigger: RORO LUNDBERG ([id number]) [facility] ([facility]) [address] [place] [address] [place] LYMPHOCYTES TOTAL PER COUNTED LEUKOCYTES BY MANUAL COUNT 4 Normal [facility] Comment on above: Performed By: #### L [id number] #### Cable Rigger: ORRO LUNDBERG ([id number]) [facility] ([facility]) [address] [place] [address] [place] LYMPHOCYTES/100 LEUKOCYTES IN BLOOD-CELLAVISION 4 % Low 15-45 [facility] Comment on above: Performed By: #### L [id number] #### Cable Rigger: RORO LUNDBERG ([id number]) [facility] [address] [place] [address] [place] METAMYELOCYTES TOTAL PER COUNTED LEUKOCYTES BY MANUAL COUNT Normal [facility] Comment on above: Performed By: #### L [id number] #### Cable Rigger: RORO LUNDBERG ([id number]) [facility] ([facility]) [address] [place] [address] [place] MONOCYTES (10*3/UL) IN BLOOD-CELLAVISION 0.6 10*3/uL Normal 0.0-0.9 [facility] Comment on above: Performed By: #### L [id number] #### Cable Rigger: RORO LUNDBERG ([id number]) [facility] [address] [place] [address] [place] MONOCYTES TOTAL PER COUNTED LEUKOCYTES BY MANUAL COUNT 3 Normal [facility] Comment on above: Performed By: #### L [id number] #### Cable Rigger: RORO LUNDBERG ([id number]) [facility] [address] [place] [address] [place] MONOCYTES/100 LEUKOCYTES IN BLOOD-NIRANJAN 3 % Low 5-13 [facility] Comment on above: Performed By: #### L [id number] #### Cable Rigger: RORO LUNDBERG ([id number]) [facility] ([facility]) [address] [place] [address] [place] MYELOCYTES COUNTED BY MANUAL COUNT Normal [facility] Comment on above: Performed By: #### L [id number] #### Cable Rigger: RORO LUNDBERG ([id number]) [facility] [address] [place] [address] [place] NEUTROPHILS BAND FORM/100 LEUKOCYTES IN BLOOD-CELLAVISI 10 % High <=0 [facility] Comment on above: Performed By: #### L [id number] #### Cable Rigger: RORO LUNDBERG ([id number]) [facility] ([facility]) [address] [place] [address] [place] NEUTROPHILS TOTAL PER COUNTED LEUKOCYTES BY MANUAL COUNT 88 Normal [facility] Comment on above: Performed By: #### L [id number] #### Cable Rigger: RORO LUNDBERG ([id number]) [facility] [address] [place] [address] [place] OVALOCYTES PRESENCE IN BLOOD BY LIGHT MICROSCOPY Slight Abnormal (none) [facility] Comment on above: Performed By: #### L [id number] #### Cable Rigger: RORO LUNDBERG ([id number]) [facility] ([facility]) [address] [place] [address] POIKILOCYTOSIS (PRESENCE) IN BLOOD BY LIGHT MICROSCOPY Slight Abnormal (none) [facility] Comment on above: Performed By: #### L [id number] #### Cable Rigger: RORO LUNDBERG ([id number]) [facility] [address] [place] [address] [place] PROMYELOCYTES TOTAL PER COUNTED LEUKOCYTES BY MANUAL COUNT Normal [facility] Comment on above: Performed By: #### L [id number] #### Cable Rigger: RORO LUNDBERG ([id number]) [facility] ([facility]) [address] [place] [address] RBC MORPHOLOGY IN BLOOD abnormal Normal [facility] Comment on above: Performed By: #### L [id number] #### Cable Rigger: RORO LUNDBERG ([id number]) [facility] [address] [place] [address] [place] SEGMENTED NEUTROPHILS (10*3/UL) IN BLOOD-CELLAVISION 18.9 10*3/uL High 1.8-7.5 [facility] Comment on above: Performed By: #### L [id number] #### Cable Rigger: RORO LUNDBERG ([id number]) [facility] [address] [place] [address] [place] SEGMENTED NEUTROPHILS/100 LEUKOCYTES-CE 83 % High 38-82 [facility] Comment on above: Performed By: #### L [id number] #### Cable Rigger: RORO LUNDBERG ([id number]) [facility] ([facility]) [address] [place] [address] UNCLASSIFIED CELLS TOTAL PER COUNTED LEUKOCYTES BY MANUAL COUNT Normal [facility] Comment on above: Performed By: #### L [id number] #### Cable Rigger: RORO LUNDBERG ([id number]) [facility] ([facility]) [address] [place] [address] VARIANT LYMPHOCYTES TOTAL PER COUNTED LEUKOCYTES BY MANUAL COUNT Normal [facility] Comment on above: Performed By: #### L [id number] #### Cable Rigger: RORO LUNDBERG ([id number]) [facility] ([facility]) [address] [place] [address] MCV (mean corpuscular volume ) determinationOrdered By: Laurie Elizalde on 08-23-2024 MCV (RBC) [Entitic vol] 87.5 fL 80-94 [facility] Magnesiumon 08-23-2024 Magnesium [Mass/Vol] 1.7 mg/dL Normal 1.5-2.2 [facility] Comment on above: Performed By: #### L 501.2300, L501.5200 ####[facility] [address] [place], [address] Magnesium measurement (mass/ volume)Ordered By: Laurie Elizalde on 08-23-2024 Magnesium (Unsp spec) [Mass/Vol] 1.7 mg/dL 1.5-2.2 [facility] Mean corpuscular hemoglobin (MCH) determinationOrdered By: Laurie Elizalde on 08-23-2024 MCH (RBC) [Entitic mass] 31.1 pg 27.0-32.0 [facility] Mean corpuscular hemoglobin concentration (MCHC) determinationOrdered By: Laurie Elizalde on 08-23-2024 MCHC (RBC) [Mass/Vol] 35.5 g/dL 32-36 [facility] Mean platelet volume determi nationOrdered By: Laurie Elizalde on 08-23-2024 Platelet mean volume (Bld) [Entitic vol] 9.1 fL 6.2-12.0 [facility] Microscopic analysis of urin e for red blood cells (RBC)Ordered By: Laurie Elizalde on 08-23-2024 Microscopic analysis of urine for red blood cells (RBC) 0 SEEN /hpf 0-5 [facility] Monocyte percentageOrdered B y: Laurie Elizalde on 08-23-2024 Monocytes/100 WBC (Bld) 3.2 % 0-10 [facility] Mucus LM Ql (Urine sed)Order ed By: Laurie Elizalde on 08-23-2024 Mucus Ql (Urine sed) 0 SEEN /hpf [facility] NT PRO BNPon 08-23-2024 Natriuretic peptide B (Bld) [Mass/Vol] 93732 pg/mL High <125 [facility] Comment on above: Performed By: #### L [id number] #### Cable Rigger: RORO LUNDBERG ([id number]) [facility] ([id number] Natriuretic peptide B [Mass/ Vol]on 08-23-2024 Interpretation and review of laboratory results Abnormal [facility] Natriuretic peptide B (Bld) [Mass/Vol] 40279 pg/mL High NINF - 125 pg/mL [facility] Neutrophil percentageOrdered By: Laurie Elizalde on 08-23-2024 Neutrophils/100 WBC (Bld) 93.6 % High 47-70 [facility] Nitrite Test strip Ql (U)Ord ered By: Laurie Elizalde on 08-23-2024 Nitrite Ql (U) Negative Negative [facility] No Panel Informationon 08-23 4h Troponin HS (Serial 3rd Troponin) 50 ng/L High NINF - 35 ng/L [facility] Comment on above: 4h troponin (3rd tro ponin) samples collected between 1h 40 min and 2h and 20 min of the 2h troponin collection time can be utilized to interpret delta troponins as per [facility] algorithms. Samples collected outside this timeframe need to be interpreted clinically. Rising or falling troponin delta between 2 15 ng/L as compared to 2h troponin value requires further evaluation. Interpretation and review of laboratory results Abnormal [facility] 2h Troponin HS (Serial 2nd Troponin) 57 ng/L High NINF - 35 ng/L [facility] Comment on above: Rising or falling tr oponin delta below 2 ng/L as compared to baseline value suggests that acute cardiac injury is unlikely. Interpretation and review of laboratory results Abnormal [facility] Atypical Lymphocytes Manual [facility] Health Bands Manual 11 [facility] Basophils Manual [facility] Blasts Manual [facility] Eosinophils Manual [facility] Interpretation and review of laboratory results Abnormal [facility] Lymphocytes Manual 4 [facility] Metamyelocytes Manual [facility] Monocytes Manual 3 [facility] Myelocytes Manual [facility] Neutrophils Manual 88 [facility] Promyelocytes Manual [facility] Unclassified Cells, Manual [facility] Interpretation and review of laboratory results Abnormal [facility] Troponin HS Serial Baseline 59 ng/L High NINF - 35 ng/L [facility] Comment on above: In individuals prese nting with symptoms > 2h, a baseline troponin <= 5 ng/L suggests acute cardiac injury is unlikely and further serial testing is generally not indicated. [facility] Interpretation and review of laboratory results Abnormal [facility] Interpretation and review of laboratory results Normal [facility] Nucleated red blood cell per centageOrdered By: Laurie Elizalde on 08-23-2024 Nucleated RBC/100 WBC (Bld) [Ratio] 0 % 0-5 [facility] Nursing Noteon 08-23-2024 Nursing Note Pt.'s insulin pump reading glucose 180 Normal [facility] Nursing Note Patient Name: Farrah Gonzales Patient : 1980 Acct: [id number] Date of Admission: 08/23/2024 [facility] A Code Status: Full Code Allergies: Allergies[1] [...] 4 Other (Comment) -- None (Room air) [place] Warm;Dry -- -- None None None None Incapacitated RN and Pt education done Medication (See MAR) 08/23/242357 Alert (0) 4 Other (Comment) Other (Comment) None (Room air) [place] Warm;Dry Soft Active None None None None [...] - Before each treatment: Dialysis Machine No.: [id number] RO Machine Number: [id number] Dialyzer Lot No.: [id number] Tubing Lot Number: [id number] [employer] Secure: Yes Venous Parameters Set: Yes Arterial Parameters Set: Yes NS Bag: Yes Saline Line Double Clamped: Yes Dialyzer: Nipro Prime Volume (mL): 200 mL RO Machine Number: [id number] RO Machine Log Sheet Completed: Yes Machine Alarm Self Test: Completed, Passed (At 2016) (08/23/242015) Air Foam Detector: Tested, Proper Function, pH Reading Extracorporeal Circuit Tested for Integrity: Yes Machine Conductivity: 13.8 Manual Conductivity: 13.6 Manual Ph: 7.2 Bleach Test (Neg): Yes Bath Temperature: 36 ?C (96.8 ?F) Conductivity Meter Serial #: [id number] Machine Functioning Alarm Free? Yes Dialysis Bath: K+ (Potassium): 3 Ca+ (Calcium): 2.5 Na+ (Sodium): 137 HCO3 (Bicarb): 32 Bicarbonate Concentrate Lot No.: [id number] Acid Concentrate Lot No.: [id number] Chlorine Testing - Before each treatment and [...] 140 mmH (more content not included)... Normal [facility] Nursing Note Fistula to Lfa/wrist is warm to touch, secure messaging to primary Normal [facility] Nursing Note Blood sugar per patients omni pod 176 Normal [facility] Organism identificationOrder ed By: Laurie Elizalde on 08-23-2024 Microorganism identified Cx Nom (Unsp spec) Staphylococcus aureus Abnormal [facility] PROCALCITONIN TESTon 025 PROCALCITONIN 5.94 ng/mL High <0.07 [facility] Comment on above: Result Comment: ORDE R COMMENTS: PCT <0.50 = Low risk of severe sepsis and/or septic shock. PCT >2.00 = High risk of severe sepsis and/or septic shock. Performed By: #### L [id number] #### Cable Rigger: RORO ULNDBERG ([id number]) [facility] ([facility] Partial Thromboplast Timeon 08-23-2024 aPTT Coag (Bld) [Time] 28.3 s Normal 24.1-36.2 [facility] Comment on above: Performed By: #### M 100.636, L300.3900, L500.4050, L300.4310, L503.6005, L100.0100, M200.1000 ####[facility] [address] [place], [address] Phosphoruson 08-23-2024 Phosphate [Mass/Vol] 1.2 mg/dL Invalid Interpretation Code 2.7-4.5 [facility] Comment on above: Performed By: #### L 501.2300, L501.5200 ####[facility] [address] [place], [address] Platelet countOrdered By: Tito Elizalde on 08-23-2024 Platelets (Bld) [#/Vol] 250 10*3/uL 150-450 [facility] Potassium measurement (mass/ volume)Ordered By: Laurie Elizalde on 08-23-2024 Potassium (Unsp spec) [Mass/Vol] 3.6 mmol/L 3.3-5.1 [facility] Procalcitonin [Mass/Vol]on 0 08-23-2024 Interpretation and review of laboratory results Abnormal [facility] PCT <0.50 = Low risk of severe sepsis and/or septic shock. PCT >2.00 = High risk of severe sepsis and/or septic shock. [facility] Progress Noteon 08-23-2024 Progress Note Brief [...] mg, PO or IM for nausea/vomiting. Normal [facility] Protein Test strip Ql (U)Ord ered By: Laurie Elizalde on 08-23-2024 Protein Ql (U) 500 mg/dl High Negative [facility] Prothrombin Time w/INRon INR Coag (PPP) [Relative time] 1.1 {INR} Normal [facility] Comment on above: Performed By: #### M 100.636, L300.3900, L500.4050, L300.4310, L503.6005, L100.0100, M200.1000 ####[facility] [address] [place], [place], [id number] PT Coag (PPP) [Time] 14.7 s Normal 11.7-14.9 [facility] Comment on above: Performed By: #### M 100.636, L300.3900, L500.4050, L300.4310, L503.6005, L100.0100, M200.1000 ####[facility] [address] [place], [place], [address] Prothrombin timeOrdered By: Laurie Elizalde on 08-23-2024 PT Coag (PPP) [Time] 14.7 s 11.7-14.9 [facility] RBC Auto (Bld) [#/Vol]Ordere d By: Laurie Elizalde on 08-23-2024 RBC (Bld) [#/Vol] 3.83 10*6/uL Low 4.6-6.2 [facility] RESPIRATORY PATHOGENS PANEL BY PCRon 08-23-2024 RESPIRATORY [...] Detected ORDER COMMENTS: Methodology: Multiplex PCR Normal [facility] Comment on above: Performed By: #### L [id number] ####Cable Rigger: RORO LUNDBERG ([id number])[facility] ([facility])[address] [place] [address] Respiratory pathogens DNA an d RNA panel LAVERN+non-probe (Nph)on 08-23-2024 Adenovirus Not detected Not Detected [facility] B. pertussis DNA LAVERN+probe Ql (Unsp spec) Not detected Not Detected [facility] Bordetella parapertussis Not detected Not Detec sharan [facility] Chlamydia pneumoniae Not detected Not Detected [facility] Coronavirus 229E Not detected Not Detected [facility] Coronavirus HKU1 Not detected Not Detected [facility] Coronavirus NL63 Not detected Not Detected [facility] Coronavirus OC43 Not detected Not Detected [facility] FLUAV RNA LAVERN+non-probe Ql (Nph) Not detected Not Detected [facility] FLUBV RNA LAVERN+non-probe Ql (Nph) Not detected Not Detected [facility] Human Metapneumovirus Not detected Not Detected [facility] Human Rhinovirus/Enterovirus Not detected Not Detected [facility] Interpretation and review of laboratory results Normal [facility] Mycoplasma pneumoniae Not detected Not Detected [facility] Parainfluenza 1 Not detected Not Detected [facility] Parainfluenza 2 Not detected Not Detected [facility] Parainfluenza 3 Not detected Not Detected [facility] Parainfluenza 4 Not detected Not Detected [facility] Respiratory Syncytial Virus Not detected Not De tected [facility] SARS-CoV-2 (COVID-19) RNA LAVERN+non-probe Ql (Nph) Not detected Not Detected [facility] Methodology: Multiplex PCR [facility] SEDIMENTATION RATE, AUTOMATE Don 08-23-2024 SEDIMENTATION RATE, ERYTHROCYTE 30 mm/hr High 0-10 [facility] Comment on above: Performed By: #### L [id number] #### Cable Rigger: RORO LUNDBERG ([id number]) [facility] ([facility]) [address] [place] [address] Serum creatinine measurement (mass/volume)Ordered By: Laurie Elizalde on 08-23-2024 Creatinine [Mass/Vol] 8.87 mg/dL High 0.70-1.20 [facility] Comment on above: Critical Result(s) C alled at: 0139 by: MONET OLIVARES TO [place] CHILDS Results read back by same. Serum globulin measurementOr dered By: Laurie Elizalde on 08-23-2024 Globulin (S) [Mass/Vol] 3.0 g/dL 2.2-4.2 [facility] Serum glucose measurement (m ass/volume)Ordered By: Laurie Elizalde on 08-23-2024 Glucose [Mass/Vol] 220 mg/dL High 70-99 [facility] Serum or plasma alanine doshi otransferase (ALT) measurementOrdered By: Laurie Elizalde on 08-23-2024 ALT [Catalytic activity/Vol] 12 U/L <47 [facility] Serum or plasma albumin jessie urement (mass/volume)Ordered By: Laurie Elizalde on 08-23-2024 Albumin [Mass/Vol] 4.7 g/dL 3.5-5.0 [facility] Serum or plasma albumin/glob ulin mass ratioOrdered By: Laurie Elizalde on 08-23-2024 Albumin/Globulin [Mass ratio] 1.6 {ratio} 0.9-2.4 [facility] Serum or plasma alkaline kalie sphatase measurementOrdered By: Laurie Elizalde on 08-23-2024 ALP [Catalytic activity/Vol] 94 U/L 40-129 [facility] Serum or plasma calcium jessie urement (mass/volume)Ordered By: Laurie Elizalde on 08-23-2024 Calcium [Mass/Vol] 10.5 mg/dL 7.6-11.0 [facility] Serum or plasma urea nitroge n measurement (mass/volume)Ordered By: Laurie Elizalde on 08-23-2024 Urea nitrogen [Mass/Vol] 54 mg/dL High 4-19 [facility] Sodium levelOrdered By: Tacos Elizalde on 08-23-2024 Sodium [Moles/Vol] 135 mmol/L 133-145 [facility] Squamous epithelial cells de tection in urine sediment by light microscopyOrdered By: Laurie Elizalde on 08-23-2024 Epithelial cells.squamous LM Ql (Urine sed) 0 SEEN /hpf 0-5 [facility] THYROID STIMULATING HORMONEo n 08-23-2024 THYROID STIMULATING HORMONE 2.48 uIU/mL Normal 0.35-4. 94 [facility] Comment on above: Performed By: #### L [id number] #### Cable Rigger: RORO LUNDBERG ([id number]) [facility] ([facility]) [address] [place] [address] TSH Qnon 08-23-2024 Interpretation and review of laboratory results Normal [facility] Total proteinOrdered By: Farrah Elizalde on 08-23-2024 Protein [Mass/Vol] 7.6 g/dL 5.9-8.4 [facility] Urinalysis, Completeon 08-23 BACTERIA 0 SEEN Normal None Seen [facility] Comment on above: Order Comment: CLEAN CATCH Performed By: #### M 100.678, L400.0001, M100.2200 ####[facility] [address] [place], [address] EPI,SQUAMOUS 0 SEEN Normal 0-5 [facility] Comment on above: Order Comment: CLEAN CATCH Performed By: #### M 100.678, L400.0001, M100.2200 ####[facility] [address] [place], [address] Mucus Ql (Urine sed) 0 SEEN Normal [facility] Comment on above: Order Comment: CLEAN CATCH Performed By: #### M 100.678, L400.0001, M100.2200 ####[facility] [address] [place], [address] RBC 0 SEEN Normal [address] [place] [address] Comment on above: Order Comment: CLEAN CATCH Performed By: #### M 100.678, L400.0001, M100.2200 ####[facility] [address] [place], [place], [address] WBC 0 SEEN Normal 0-5 [facility] Comment on above: Order Comment: CLEAN CATCH Performed By: #### M 100.678, L400.0001, M100.2200 ####[facility] [address] [place], [place], [address] Urine clarityOrdered By: Farrah Elizalde on 08-23-2024 Clarity (U) Clear Clear [facility] Urine color determinationOrd ered By: Laurie Elizalde on 08-23-2024 Color (U) Yellow Yellow [facility] Urine cultureOrdered By: Farrah Elizalde on 08-23-2024 Bacteria identified Cx Nom (U) Positive Abnormal [facility] Urine glucose detectionOrder ed By: Laurie Elizalde on 08-23-2024 Glucose Ql (U) 1000 mg/dl High Normal [facility] Urine leukocyte esterase det ection by dipstickOrdered By: Laurie Elizalde on 08-23-2024 Leukocyte esterase Test strip Ql (U) Negative Negative [facility] Urine pHOrdered By: Laurie sifuentes on 08-23-2024 pH (U) 7.0 [pH] 5.0 - 8.0 [facility] Urine sediment bacteria coun t by microscopy (number/high power field)Ordered By: Laurie Elizalde on 08-23-2024 Bacteria LM.HPF (Urine sed) [#/Area] 0 /[HPF] None Seen [facility] Urine specific gravity measu rementOrdered By: Laurie Elizalde on 08-23-2024 Specific gravity (U) [Rel density] 1.010 1.002-1.030 [facility] Urine urobilinogen measureme ntOrdered By: Laurie Elizalde on 08-23-2024 Urobilinogen Ql (U) Normal mg/dl Normal [facility] White blood cell (WBC) count Ordered By: Laurie Elizalde on 08-23-2024 WBC (Bld) [#/Vol] 26.1 10*3/uL High 4.4-11.0 [facility] White blood cell countOrdere d By: Laurie Elizalde on 08-23-2024 White blood cell count 0 SEEN /hpf 0-5 [facility] XR CHEST 1 VIEWon 08-23-2024 XR CHEST [...] Electronically Signed Date/Time: 08/23/2024 1:40 PM EDT [facility] Patient Name: FARRAH GONZALES : 1980 [...] of the chest are unremarkable as visualized. [facility] Anirudh Christie MD - 08/23/2024 Patient [...] Electronically Signed Date/Time: 08/23/2024 1:40 PM EDT [facility] Radiology Study observation (narrative) [facility] XR Chest Single viewOrdered By: Anirudh Christie on 08-23-2024 [facility] AV Fistula/Dialysis Graft Sc anon 08-19-2024 AV Fistula/Dialysis Graft Scan Normal [facility] Arterial study reportOrdered By: Garrison Valadez on 08-19-2024 Noninvasive arteriosclerosis study report [facility] [address] [place] [address] AV Fistula/Dialysis Graft Scan 08/19/24 1010 MR#: [id number] Acct: [id number] Name: LAURIE GONZALES Rep #:[id number] : 1980 44 From: Garrison Ricketts Attending [...] Dictated: 08/19/24 1010 Date Transcribed: 08/19/24 140 Surgical Supply Assistant: Signed [facility] Work Phone: CNCOon 08-18-2024 [facility] Letter Text Normal [facility] Gastroenterology Visit Repor ton 08-17-2024 Gastroenterology Visit Report Normal [facility] Absolute lymphocyte countOrd ered By: Eugenia London on 08-11-2024 Lymphocytes Auto (Unsp spec) [#/Vol] 1.47 10*3/uL 0.83-4.51 [facility] Absolute neutrophil countOrd ered By: Eugenia London on 08-11-2024 Neutrophils (Bld) [#/Vol] 8.2 10*3/uL High 2.0-7.7 [facility] Anion gap in Serum or Plasma Ordered By: Eugenia London on 08-11-2024 Anion gap [Moles/Vol] 27 mmol/L High 5-15 [facility] Automated lymphocyte count a s percentage of total leukocytesOrdered By: Eugenia London on 08-11-2024 Lymphocytes/100 WBC Auto (Unsp spec) 13.4 % Low 19-41 [facility] BUN/creatinine ratioOrdered By: Eugenia London on 08-11-2024 Urea nitrogen/Creatinine [Mass ratio] 7.7 mg/mg Low 10-20 [facility] Basophil percentageOrdered B y: Eugenia London on 08-11-2024 Basophils/100 WBC (Bld) 0.7 % 0-1 [facility] Bilirubin, totalOrdered By: Eugenia London on 08-11-2024 Bilirubin [Mass/Vol] 0.38 mg/dL 0.00-1.30 [facility] CBC W/Diff, Automatedon 07-29 Absolute Lymph 1.47 X10 3/uL Normal 0.83-4.51 [facility] Comment on above: Performed By: #### L 500.4050, L100.0100, L501.2300, L500.4100, L501.5200 ####[facility] [address] [place], [address] Absolute Neut 8.2 X10 3/uL High 2.0-7.7 [facility] Comment on above: Performed By: #### L 500.4050, L100.0100, L501.2300, L500.4100, L501.5200 ####[facility] [address] [place], [address] Basophils/100 WBC (Bld) 0.7 % Normal 0-1 [facility] Comment on above: Performed By: #### L 500.4050, L100.0100, L501.2300, L500.4100, L501.5200 ####[facility] [address] [place], [address] Eosinophils/100 WBC (Bld) 0.8 % Normal 0-5 [facility] Comment on above: Performed By: #### L 500.4050, L100.0100, L501.2300, L500.4100, L501.5200 ####[facility] [address] [place], [address] Erythrocyte distribution width (RBC) [Ratio] 13.0 % Normal 11.6-14.6 [facility] Comment on above: Performed By: #### L 500.4050, L100.0100, L501.2300, L500.4100, L501.5200 ####[facility] [address] [place], [address] Hematocrit (Bld) [Volume fraction] 34.8 % Low 40-54 [facility] Comment on above: Performed By: #### L 500.4050, L100.0100, L501.2300, L500.4100, L501.5200 ####[facility] [address] [place], [address] Hemoglobin (Bld) [Mass/Vol] 12.1 g/dL Low 13.0-16. 5 [facility] Comment on above: Performed By: #### L 500.4050, L100.0100, L501.2300, L500.4100, L501.5200 ####[facility] [address] [place], [address] IG% 0.400 Normal 0.0-0.9 [facility] Comment on above: Result Comment: IG% - Immature Granulocytes (promyelocytes, myelocytes andmetamyelocytes) > 1% indicates that a LEFT SHIFT is Present. Performed By: #### L 500.4050, L100.0100, L501.2300, L500.4100, L501.5200 ####[facility] [address] [place], [address] Lymphocytes/100 WBC (Bld) 13.4 % Low 19-41 [facility] Comment on above: Performed By: #### L 500.4050, L100.0100, L501.2300, L500.4100, L501.5200 ####[facility] [address] [place], [address] MCH (RBC) [Entitic mass] 31.3 pg Normal 27.0-32.0 [facility] Comment on above: Performed By: #### L 500.4050, L100.0100, L501.2300, L500.4100, L501.5200 ####[facility] [address] [place], [address] MCHC (RBC) [Mass/Vol] 34.8 g/dL Normal 32-36 [facility] Comment on above: Performed By: #### L 500.4050, L100.0100, L501.2300, L500.4100, L501.5200 ####[facility] [address] [place], [address] MCV (RBC) [Entitic vol] 89.9 fL Normal 80-94 [facility] Comment on above: Performed By: #### L 500.4050, L100.0100, L501.2300, L500.4100, L501.5200 ####[facility] [address] [place], [address] Monocytes/100 WBC (Bld) 9.6 % Normal 0-10 [facility] Comment on above: Performed By: #### L 500.4050, L100.0100, L501.2300, L500.4100, L501.5200 ####[facility] [address] [place], [address] Neutrophils/100 WBC (Bld) 75.1 % High 47-70 [facility] Comment on above: Performed By: #### L 500.4050, L100.0100, L501.2300, L500.4100, L501.5200 ####[facility] [address] [place], [address] Nucleated RBC (Bld) [#/Vol] 0 10*3/uL Normal 0-5 [facility] Comment on above: Performed By: #### L 500.4050, L100.0100, L501.2300, L500.4100, L501.5200 ####[facility] [address] [place], [address] Platelet mean volume (Bld) [Entitic vol] 9.4 fL Normal 6.2-12.0 [facility] Comment on above: Performed By: #### L 500.4050, L100.0100, L501.2300, L500.4100, L501.5200 ####[facility] [address] [place], [address] Platelets (Bld) [#/Vol] 302 10*3/uL Normal 150-450 [facility] Comment on above: Performed By: #### L 500.4050, L100.0100, L501.2300, L500.4100, L501.5200 ####[facility] [address] [place], [address] RBC (Bld) [#/Vol] 3.87 10*6/uL Low 4.6-6.2 [facility] Comment on above: Performed By: #### L 500.4050, L100.0100, L501.2300, L500.4100, L501.5200 ####[facility] [address] [place], [address] RDW SD 42.2 fl Normal 35.1-43.9 [facility] Comment on above: Performed By: #### L 500.4050, L100.0100, L501.2300, L500.4100, L501.5200 ####[facility] [address] [place], [address] WBC (Bld) [#/Vol] 10.9 10*3/uL Normal 4.4-11.0 [facility] Comment on above: Performed By: #### L 500.4050, L100.0100, L501.2300, L500.4100, L501.5200 ####[facility] [address] [place], [address] Calculated very low density lipoprotein (VLDL) cholesterol measurementOrdered By: Eugenia London on 08-11-2024 Calculated very low density lipoprotein (VLDL) cholesterol measurement 29 mg/dL 5-40 [facility] Carbon dioxide, total [Moles /volume] in Central venous bloodOrdered By: Eugenia London on 08-11-2024 CO2 [Moles/Vol] 20.8 mmol/L Low 21.0-32.0 [facility] Cardiovascular stress test r eportOrdered By: Jordy Garcia on 08-11-2024 Study report [facility] [address] [facility] [place] [address] MR#: [id number] Acct: [id number] Name: LAURIE GONZALES Rep #: [id number] : 1980 44 From: Jordy Garcia MD [...] Date Dictated: 08/11/24 1243 Date Transcribed: 08/11/241242 Surgical Supply Assistant: [place] Signed [facility] Work Phone: Chloride assayOrdered By: Pradeep London on 08-11-2024 Chloride [Moles/Vol] 89 mmol/L Low 98-108 [facility] Comprehensive Metabolic Prof ilon 08-11-2024 Albumin [Mass/Vol] 4.3 g/dL Normal 3.5-5.0 [facility] Comment on above: Performed By: #### L 500.4050, L100.0100, L501.2300, L500.4100, L501.5200 ####[facility] [address] [place], [place], [address] Albumin/Globulin [Mass ratio] 1.6 {ratio} Normal 0.9-2.4 [facility] Comment on above: Performed By: #### L 500.4050, L100.0100, L501.2300, L500.4100, L501.5200 ####[facility] [address] [place], [address] ALK PHOS 81 U/L Normal 40-129 [facility] Comment on above: Performed By: #### L 500.4050, L100.0100, L501.2300, L500.4100, L501.5200 ####[facility] [address] [place], [address] ALT [Catalytic activity/Vol] 10 U/L Normal <=46 [facility] Comment on above: Performed By: #### L 500.4050, L100.0100, L501.2300, L500.4100, L501.5200 ####[facility] [address] [place], [address] AST [Catalytic activity/Vol] 18 U/L Normal <=37 [facility] Comment on above: Performed By: #### L 500.4050, L100.0100, L501.2300, L500.4100, L501.5200 ####[facility] [address] [place], [address] Bilirubin [Mass/Vol] 0.38 mg/dL Normal 0.00-1.30 [facility] Comment on above: Performed By: #### L 500.4050, L100.0100, L501.2300, L500.4100, L501.5200 ####[facility] [address] [place], [address] BUN/CRE 7.7 RATIO Low 10-20 [facility] Comment on above: Performed By: #### L 500.4050, L100.0100, L501.2300, L500.4100, L501.5200 ####[facility] [address] [place], [address] Calcium [Mass/Vol] 9.6 mg/dL Normal 7.6-11.0 [facility] Comment on above: Performed By: #### L 500.4050, L100.0100, L501.2300, L500.4100, L501.5200 ####[facility] [address] [place], [address] Chloride [Moles/Vol] 89 mmol/L Low 98-108 [facility] Comment on above: Performed By: #### L 500.4050, L100.0100, L501.2300, L500.4100, L501.5200 ####[facility] [address] [place], [address] CO2 [Moles/Vol] 20.8 mmol/L Low 21.0-32.0 [facility] Comment on above: Performed By: #### L 500.4050, L100.0100, L501.2300, L500.4100, L501.5200 ####[facility] [address] [place], [address] Creatinine [Mass/Vol] 7.33 mg/dL High 0.70-1.20 [facility] Comment on above: Performed By: #### L 500.4050, L100.0100, L501.2300, L500.4100, L501.5200 ####[facility] [address] [place], [address] ECRCL 13.98 ml/min Low 50-250 [facility] Comment on above: Performed By: #### L 500.4050, L100.0100, L501.2300, L500.4100, L501.5200 ####[facility] [address] [place], [address] GAP 27 High 5-15 [facility] Comment on above: Performed By: #### L 500.4050, L100.0100, L501.2300, L500.4100, L501.5200 ####[facility] [address] [place], [address] GFR/1.73 sq M.predicted among non-blacks MDRD (S/P/Bld) [Vol rate/Area] 9 mL/min/{1.73_m2} Low >60 [facility] Comment on above: Result Comment: mL/m in/1.73m2 CKD-EPI Creatinine Equation (2020) Performed By: #### L 500.4050, L100.0100, L501.2300, L500.4100, L501.5200 ####[facility] [address] [place], [address] Globulin (S) [Mass/Vol] 2.7 g/dL Normal 2.2-4.2 [facility] Comment on above: Performed By: #### L 500.4050, L100.0100, L501.2300, L500.4100, L501.5200 ####[facility] [address] [place], [address] Glucose [Mass/Vol] 183 mg/dL High 70-99 [facility] Comment on above: Performed By: #### L 500.4050, L100.0100, L501.2300, L500.4100, L501.5200 ####[facility] [address] [place], [address] Potassium [Moles/Vol] 4.4 mmol/L Normal 3.3-5.1 [facility] Comment on above: Performed By: #### L 500.4050, L100.0100, L501.2300, L500.4100, L501.5200 ####[facility] [address] [place], [address] Sodium [Moles/Vol] 136 mmol/L Normal 133-145 [facility] Comment on above: Performed By: #### L 500.4050, L100.0100, L501.2300, L500.4100, L501.5200 ####[facility] [address] [place], [address] T PROT 7.1 g/dL Normal 5.9-8.4 [facility] Comment on above: Performed By: #### L 500.4050, L100.0100, L501.2300, L500.4100, L501.5200 ####[facility] [address] [place], [address] Urea nitrogen [Mass/Vol] 56 mg/dL High 4-19 [facility] Comment on above: Performed By: #### L 500.4050, L100.0100, L501.2300, L500.4100, L501.5200 ####[facility] [address] [place], [address] Consultation - Nephrologyon 08-11-2024 Consultation - Nephrology Normal [facility] Discharge Instructionon 07-29 Discharge Instruction Normal [facility] Eosinophil percentageOrdered By: Eugenia London on 08-11-2024 Eosinophils/100 WBC (Bld) 0.8 % 0-5 [facility] Erythrocyte distribution wid th ratioOrdered By: Eugenia London on 08-11-2024 Erythrocyte distribution width (RBC) [Ratio] 13.0 % 11.6-14.6 [facility] Erythrocyte distribution wid th standard deviationOrdered By: Eugenia London on 08-11-2024 Erythrocyte distribution width (RBC) [Ratio] 42.2 fl 35.1-43.9 [facility] Glomerular filtration rate ( GFR) estimation/1.73 sq m using serum, plasma, or whole bOrdered By: Eugenia London on 08-11-2024 GFR/1.73 sq M.predicted among non-blacks MDRD (S/P/Bld) [Vol rate/Area] 9 mL/min/{1.73_m2} Low >60 [facility] Comment on above: mL/min/1.73m2 CKD-EP I Creatinine Equation (2020) Hematocrit Auto (Bld) [Volum e fraction]Ordered By: Eugenia London on 08-11-2024 Hematocrit (Bld) [Volume fraction] 34.8 % Low 40-54 [facility] Hemoglobin A1con 08-11-2024 HbA1c (Bld) [Mass fraction] 7.2 % High <=5.6 [facility] Comment on above: Result Comment: Norm al < 5.7 % Prediabetic 5.7 - 6.4 % Diabetic >or= 6.5 % Please note range changes. Performed By: #### L 501.9985 ####[facility] [address] [place], [place], [address] Hemoglobin A1c percentageOrd ered By: Eugenia London on 08-11-2024 HbA1c (Bld) [Mass fraction] 7.2 % High <5.7 [facility] Comment on above: Normal < 5.7 % Predi abetic 5.7 - 6.4 % Diabetic >or= 6.5 % Please note range changes. Hemoglobin measurementOrdere d By: Eugenia London on 08-11-2024 Hemoglobin (Bld) [Mass/Vol] 12.1 g/dL Low 13.0-16. 5 [facility] Immature granulocytes/100 WB C Auto (Bld)Ordered By: Eugenia London on 08-11-2024 Immature granulocytes/100 WBC (Bld) 0.400 % 0.0-0.9 [facility] Comment on above: IG% - Immature Granu locytes (promyelocytes, myelocytes and metamyelocytes) > 1% indicates that a LEFT SHIFT is Present. L499.0043on 08-11-2024 Trop T High Sen 208 ng/L Invalid Interpretation Code <=22 [facility] Comment on above: Result Comment: Crit ical Result(s) Called at:0007 by:??MONET HAVEN ANGEL MANOLO Results read back by same. Performed By: #### L 499.0043 ####[facility] [address] [place], [place], [id number] LDL calc ser/plasOrdered By: Eugenia London on 08-11-2024 Cholesterol in LDL [Mass/Vol] 61 mg/dL [facility] Comment on above: Echembaupy=953-517 m g/dL & Higher Xymy=753 mg/dL or greater Laboratory - Chemistry and C hemistry - challengeOrdered By: Eugenia London on 08-11-2024 AST [Catalytic activity/Vol] 18 U/L <38 [facility] Lipaseon 08-11-2024 Lipase [Catalytic activity/Vol] 25 U/L Normal 13-75 [facility] Comment on above: Result Comment: Surekha walsh note:LIPASE revised reference range effective 22.New Lipase methodology. Expected to produce lower valuesthan the previous assay method.NEW Reference Range: 13 - 75 U/L Performed By: #### L 501.2450 ####[facility] [address] [place], [address] Lipid Profileon 08-11-2024 CHOL:HDL 2.65 Normal [facility] Comment on above: Performed By: #### L 500.4050, L100.0100, L501.2300, L500.4100, L501.5200 ####[facility] [address] [place], [address] Cholesterol [Mass/Vol] 145 mg/dL Normal <=200 [facility] Comment on above: Result Comment: Chol esterol level, Desirable <200 mg/dLBorderline high cholesterol 200-239 mg/dLHigh cholesterol >=240 mg/dLRecommendations of the NCEP Adult Treatment Panel for thefollowing risk-cutoff thresholds for the [place] Americanpopulation. Performed By: #### L 500.4050, L100.0100, L501.2300, L500.4100, L501.5200 ####[facility] [address] [place], [address] Cholesterol in HDL [Mass/Vol] 55 mg/dL Normal [facility] Comment on above: Result Comment: Naomi onal Cholesterol Education Program (NCEP) guidelines:<40 mg/dL: Low HDL-cholesterol (major risk factor for CHD)>= 60 mg/dL: High HDL-cholesterol (negative risk factor forCHD)HDL-cholesterol is affected by a number of factors, e.g.smoking, exercise, hormones, sex and age. Performed By: #### L 500.4050, L100.0100, L501.2300, L500.4100, L501.5200 ####[facility] [address] [place], [address] Cholesterol in LDL [Mass/Vol] 61 mg/dL Normal [facility] Comment on above: Result Comment: Bord bqtxin=970-702 mg/dL Higher Jkqc=277 mg/dL or greater Performed By: #### L 500.4050, L100.0100, L501.2300, L500.4100, L501.5200 ####[facility] [address] [place], [address] Cholesterol in VLDL [Mass/Vol] 29 mg/dL Normal 5-40 [facility] Comment on above: Performed By: #### L 500.4050, L100.0100, L501.2300, L500.4100, L501.5200 ####[facility] [address] [place], [address] Triglyceride [Mass/Vol] 146 mg/dL Normal [facility] Comment on above: Result Comment: The drugs N-Acetylcysteine and Metamizole may falselydepress this assay.Normal range: <150 mg/dLBorderline High: 150-199 mg/dLHigh: 200-499 mg/dLVery High: >500 mg/dL Performed By: #### L 500.4050, L100.0100, L501.2300, L500.4100, L501.5200 ####[facility] [address] [place], [address] MCV (mean corpuscular volume ) determinationOrdered By: Eugenia London on 08-11-2024 MCV (RBC) [Entitic vol] 89.9 fL 80-94 [facility] Magnesiumon 08-11-2024 Magnesium [Mass/Vol] 2.6 mg/dL High 1.5-2.2 [facility] Comment on above: Performed By: #### L 500.4050, L100.0100, L501.2300, L500.4100, L501.5200 ####[facility] [address] [place], [address] Magnesium measurement (mass/ volume)Ordered By: Eugenia London on 08-11-2024 Magnesium (Unsp spec) [Mass/Vol] 2.6 mg/dL High 1.5-2.2 [facility] Mean corpuscular hemoglobin (MCH) determinationOrdered By: Eugenia London on 08-11-2024 MCH (RBC) [Entitic mass] 31.3 pg 27.0-32.0 [facility] Mean corpuscular hemoglobin concentration (MCHC) determinationOrdered By: Eugenia London on 08-11-2024 MCHC (RBC) [Mass/Vol] 34.8 g/dL 32-36 [facility] Mean platelet volume determi nationOrdered By: Eugenia London on 08-11-2024 Platelet mean volume (Bld) [Entitic vol] 9.4 fL 6.2-12.0 [facility] Monocyte percentageOrdered B y: Eugenia London on 08-11-2024 Monocytes/100 WBC (Bld) 9.6 % 0-10 [facility] Neutrophil percentageOrdered By: Eugenia London on 08-11-2024 Neutrophils/100 WBC (Bld) 75.1 % High 47-70 [facility] Nucleated red blood cell per centageOrdered By: Eugenia London on 08-11-2024 Nucleated RBC/100 WBC (Bld) [Ratio] 0 % 0-5 [facility] Phosphoruson 08-11-2024 Phosphate [Mass/Vol] 6.8 mg/dL High 2.7-4.5 [facility] Comment on above: Performed By: #### L 500.4050, L100.0100, L501.2300, L500.4100, L501.5200 ####[facility] [address] [place], [address] Platelet countOrdered By: Pradeep London on 08-11-2024 Platelets (Bld) [#/Vol] 302 10*3/uL 150-450 [facility] Potassium measurement (mass/ volume)Ordered By: Eugenia London on 08-11-2024 Potassium (Unsp spec) [Mass/Vol] 4.4 mmol/L 3.3-5.1 [facility] RBC Auto (Bld) [#/Vol]Ordere d By: Eugenia London on 08-11-2024 RBC (Bld) [#/Vol] 3.87 10*6/uL Low 4.6-6.2 [facility] Screening total cholesterol/ high density lipoprotein (HDL) cholesterol ratioOrdered By: Eugenia London on 08-11-2024 Cholesterol.total/Cholester ol in HDL [Mass ratio] 2.65 {ratio} [facility] Serum creatinine measurement (mass/volume)Ordered By: Eugenia London on 08-11-2024 Creatinine [Mass/Vol] 7.33 mg/dL High 0.70-1.20 [facility] Serum globulin measurementOr dered By: Eugenia London on 08-11-2024 Globulin (S) [Mass/Vol] 2.7 g/dL 2.2-4.2 [facility] Serum glucose measurement (m ass/volume)Ordered By: Eugenia London on 08-11-2024 Glucose [Mass/Vol] 183 mg/dL High 70-99 [facility] Serum or plasma alanine doshi otransferase (ALT) measurementOrdered By: Eugenia London on 08-11-2024 ALT [Catalytic activity/Vol] 10 U/L <47 [facility] Serum or plasma albumin jessie urement (mass/volume)Ordered By: Eugenia London on 08-11-2024 Albumin [Mass/Vol] 4.3 g/dL 3.5-5.0 [facility] Serum or plasma albumin/glob ulin mass ratioOrdered By: Eugenia London on 08-11-2024 Albumin/Globulin [Mass ratio] 1.6 {ratio} 0.9-2.4 [facility] Serum or plasma alkaline kalie sphatase measurementOrdered By: Eugenia London on 08-11-2024 ALP [Catalytic activity/Vol] 81 U/L 40-129 [facility] Serum or plasma calcium jessie urement (mass/volume)Ordered By: Eugenia London on 08-11-2024 Calcium [Mass/Vol] 9.6 mg/dL 7.6-11.0 [facility] Serum or plasma cholesterol in HDL measurement (mass/volume)Ordered By: Eugenia London on 08-11-2024 Cholesterol in HDL [Mass/Vol] 55 mg/dL >40 [facility] Comment on above: National Cholesterol Education Program (NCEP) guidelines:<40 mg/dL: Low HDL-cholesterol (major risk factor for CHD)>= 60 mg/dL: High HDL-cholesterol (negative risk factor for CHD)HDL-cholesterol is affected by a number of factors, e.g. smoking, exercise, hormones, sex and age. Serum or plasma cholesterol measurement (mass/volume)Ordered By: Eugenia London on 08-11-2024 Cholesterol [Mass/Vol] 145 mg/dL <201 [facility] Comment on above: Cholesterol level, D esirable <200 mg/dLBorderline high cholesterol 200-239 mg/dLHigh cholesterol >=240 mg/dLRecommendations of the NCEP Adult Treatment Panel for the following risk-cutoff thresholds for the [place] population. Serum or plasma urea nitroge n measurement (mass/volume)Ordered By: Eugenia London on 08-11-2024 Urea nitrogen [Mass/Vol] 56 mg/dL High 4-19 [facility] Sodium levelOrdered By: Fatoumata London on 08-11-2024 Sodium [Moles/Vol] 136 mmol/L 133-145 [facility] Stress Reporton 08-11-2024 Stress Report Normal [facility] Total proteinOrdered By: Jolly London on 08-11-2024 Protein [Mass/Vol] 7.1 g/dL 5.9-8.4 [facility] Triglycerides measurementOrd ered By: Eugenia London on 08-11-2024 Triglyceride [Mass/Vol] 146 mg/dL <199 [facility] Comment on above: The drugs N-Acetylcy steine and Metamizole may falsely depress this assay. Normal range: <150 mg/dLBorderline High: 150-199 mg/dLHigh: 200-499 mg/dLVery High: >500 mg/dL White blood cell (WBC) count Ordered By: Eugenia London on 08-11-2024 WBC (Bld) [#/Vol] 10.9 10*3/uL 4.4-11.0 [facility] 12 Lead EKGon 08-10-2024 12 Lead EKG Normal [facility] 12 Lead EKG Normal [facility] 12 Lead EKG Normal [facility] Absolute lymphocyte countOrd ered By: Jace Yanes on 08-10-2024 Lymphocytes Auto (Unsp spec) [#/Vol] 1.39 10*3/uL 0.83-4.51 [facility] Absolute neutrophil countOrd ered By: Jace Yanes on 08-10-2024 Neutrophils (Bld) [#/Vol] 8.9 10*3/uL High 2.0-7.7 [facility] Activated partial thrombopla stin time (aPTT) in platelet poor plasma by coagulation aOrdered By: Jace Yanes on 08-10-2024 aPTT Coag (PPP) [Time] 24.5 s 24.1-36.2 [facility] Anion gap in Serum or Plasma Ordered By: Jace Yanes on 08-10-2024 Anion gap [Moles/Vol] 26 mmol/L High 5-15 [facility] Automated lymphocyte count a s percentage of total leukocytesOrdered By: Jace Yanes on 08-10-2024 Lymphocytes/100 WBC Auto (Unsp spec) 12.1 % Low 19-41 [facility] BUN/creatinine ratioOrdered By: Jace Yanes on 08-10-2024 Urea nitrogen/Creatinine [Mass ratio] 7.3 mg/mg Low 10-20 [facility] Basic Metabolic Profile (BMP )on 08-10-2024 BUN/CRE 7.3 RATIO Low - [facility] Comment on above: Performed By: #### L 501.4021, L300.3900, L100.0100, L500.2500, L300.4310 ####[facility] [address] [place], [address] Calcium [Mass/Vol] 11.0 mg/dL Normal 7.6-11.0 [facility] Comment on above: Performed By: #### L 501.4021, L300.3900, L100.0100, L500.2500, L300.4310 ####[facility] [address] [place], [address] Chloride [Moles/Vol] 91 mmol/L Low 98-108 [facility] Comment on above: Performed By: #### L 501.4021, L300.3900, L100.0100, L500.2500, L300.4310 ####[facility] [address] [place], [address] CO2 [Moles/Vol] 20.8 mmol/L Low 21.0-32.0 [facility] Comment on above: Performed By: #### L 501.4021, L300.3900, L100.0100, L500.2500, L300.4310 ####[facility] [address] [place], [address] Creatinine [Mass/Vol] 6.57 mg/dL High 0.70-1.20 [facility] Comment on above: Performed By: #### L 501.4021, L300.3900, L100.0100, L500.2500, L300.4310 ####[facility] [address] [place], [address] ECRCL 15.60 ml/min Low 50-250 [facility] Comment on above: Performed By: #### L 501.4021, L300.3900, L100.0100, L500.2500, L300.4310 ####[facility] [address] [place], [address] GAP 26 High 5-15 [facility] Comment on above: Performed By: #### L 501.4021, L300.3900, L100.0100, L500.2500, L300.4310 ####[facility] [address] [place], [address] GFR/1.73 sq M.predicted among non-blacks MDRD (S/P/Bld) [Vol rate/Area] 10 mL/min/{1.73_m2} Low >60 [facility] Comment on above: Result Comment: mL/m in/1.73m2 CKD-EPI Creatinine Equation (2020) Performed By: #### L 501.4021, L300.3900, L100.0100, L500.2500, L300.4310 ####[facility] [address] [place], [address] Glucose [Mass/Vol] 118 mg/dL High 70-99 [facility] Comment on above: Performed By: #### L 501.4021, L300.3900, L100.0100, L500.2500, L300.4310 ####[facility] [address] [place], [address] Potassium [Moles/Vol] 4.0 mmol/L Normal 3.3-5.1 [facility] Comment on above: Performed By: #### L 501.4021, L300.3900, L100.0100, L500.2500, L300.4310 ####[facility] [address] [place], [address] Sodium [Moles/Vol] 138 mmol/L Normal 133-145 [facility] Comment on above: Performed By: #### L 501.4021, L300.3900, L100.0100, L500.2500, L300.4310 ####[facility] [address] [place], [address] Urea nitrogen [Mass/Vol] 48 mg/dL High 4-19 [facility] Comment on above: Performed By: #### L 501.4021, L300.3900, L100.0100, L500.2500, L300.4310 ####[facility] [address] [place], [address] Basophil percentageOrdered B y: Jace Yanes on 08-10-2024 Basophils/100 WBC (Bld) 0.6 % 0-1 [facility] CBC W/Diff, Automatedon 07-29 Absolute Lymph 1.39 X10 3/uL Normal 0.83-4.51 [facility] Comment on above: Performed By: #### L 501.4021, L300.3900, L100.0100, L500.2500, L300.4310 ####[facility] [address] [place], [address] Absolute Neut 8.9 X10 3/uL High 2.0-7.7 [facility] Comment on above: Performed By: #### L 501.4021, L300.3900, L100.0100, L500.2500, L300.4310 ####[facility] [address] [place], [address] Basophils/100 WBC (Bld) 0.6 % Normal 0-1 [facility] Comment on above: Performed By: #### L 501.4021, L300.3900, L100.0100, L500.2500, L300.4310 ####[facility] [address] [place], [address] Eosinophils/100 WBC (Bld) 1.0 % Normal 0-5 [facility] Comment on above: Performed By: #### L 501.4021, L300.3900, L100.0100, L500.2500, L300.4310 ####[facility] [address] [place], [address] Erythrocyte distribution width (RBC) [Ratio] 12.8 % Normal 11.6-14.6 [facility] Comment on above: Performed By: #### L 501.4021, L300.3900, L100.0100, L500.2500, L300.4310 ####[facility] [address] [place], [address] Hematocrit (Bld) [Volume fraction] 39.0 % Low 40-54 [facility] Comment on above: Performed By: #### L 501.4021, L300.3900, L100.0100, L500.2500, L300.4310 ####[facility] [address] [place], [address] Hemoglobin (Bld) [Mass/Vol] 13.6 g/dL Normal 13.0-16. 5 [facility] Comment on above: Performed By: #### L 501.4021, L300.3900, L100.0100, L500.2500, L300.4310 ####[facility] [address] [place], [address] IG% 0.500 Normal 0.0-0.9 [facility] Comment on above: Result Comment: IG% - Immature Granulocytes (promyelocytes, myelocytes andmetamyelocytes) > 1% indicates that a LEFT SHIFT is Present. Performed By: #### L 501.4021, L300.3900, L100.0100, L500.2500, L300.4310 ####[facility] [address] [place], [address] Lymphocytes/100 WBC (Bld) 12.1 % Low 19-41 [facility] Comment on above: Performed By: #### L 501.4021, L300.3900, L100.0100, L500.2500, L300.4310 ####[facility] [address] [place], [address] MCH (RBC) [Entitic mass] 30.8 pg Normal 27.0-32.0 [facility] Comment on above: Performed By: #### L 501.4021, L300.3900, L100.0100, L500.2500, L300.4310 ####[facility] [address] [place], [address] MCHC (RBC) [Mass/Vol] 34.9 g/dL Normal 32-36 [facility] Comment on above: Performed By: #### L 501.4021, L300.3900, L100.0100, L500.2500, L300.4310 ####[facility] [address] [place], [address] MCV (RBC) [Entitic vol] 88.2 fL Normal 80-94 [facility] Comment on above: Performed By: #### L 501.4021, L300.3900, L100.0100, L500.2500, L300.4310 ####[facility] [address] [place], [address] Monocytes/100 WBC (Bld) 8.3 % Normal 0-10 [facility] Comment on above: Performed By: #### L 501.4021, L300.3900, L100.0100, L500.2500, L300.4310 ####[facility] [address] [place], [address] Neutrophils/100 WBC (Bld) 77.5 % High 47-70 [facility] Comment on above: Performed By: #### L 501.4021, L300.3900, L100.0100, L500.2500, L300.4310 ####[facility] [address] [place], [address] Nucleated RBC (Bld) [#/Vol] 0 10*3/uL Normal 0-5 [facility] Comment on above: Performed By: #### L 501.4021, L300.3900, L100.0100, L500.2500, L300.4310 ####[facility] [address] [place], [address] Platelet mean volume (Bld) [Entitic vol] 9.2 fL Normal 6.2-12.0 [facility] Comment on above: Performed By: #### L 501.4021, L300.3900, L100.0100, L500.2500, L300.4310 ####[facility] [address] [place], [address] Platelets (Bld) [#/Vol] 359 10*3/uL Normal 150-450 [facility] Comment on above: Performed By: #### L 501.4021, L300.3900, L100.0100, L500.2500, L300.4310 ####[facility] [address] [place], [address] RBC (Bld) [#/Vol] 4.42 10*6/uL Low 4.6-6.2 [facility] Comment on above: Performed By: #### L 501.4021, L300.3900, L100.0100, L500.2500, L300.4310 ####[facility] [address] [place], [address] RDW SD 41.7 fl Normal 35.1-43.9 [facility] Comment on above: Performed By: #### L 501.4021, L300.3900, L100.0100, L500.2500, L300.4310 ####[facility] [address] [place], [address] WBC (Bld) [#/Vol] 11.5 10*3/uL High 4.4-11.0 [facility] Comment on above: Performed By: #### L 501.4021, L300.3900, L100.0100, L500.2500, L300.4310 ####[facility] [address] [place], [address] CTA Chest W/WO Contraston CTA Chest W/WO Contrast Normal [facility] Carbon dioxide, total [Moles /volume] in Central venous bloodOrdered By: Jace Yanes on 08-10-2024 CO2 [Moles/Vol] 20.8 mmol/L Low 21.0-32.0 [facility] Chest PA and Lateralon 08-10 Chest PA and Lateral Normal [facility] Chloride assayOrdered By: Richmond Yanes on 08-10-2024 Chloride [Moles/Vol] 91 mmol/L Low 98-108 [facility] Emergency Department Summary on 08-10-2024 Emergency Department Summary Normal [facility] Eosinophil percentageOrdered By: Jace Yanes on 08-10-2024 Eosinophils/100 WBC (Bld) 1.0 % 0-5 [facility] Erythrocyte distribution wid th ratioOrdered By: Jace Yanes on 08-10-2024 Erythrocyte distribution width (RBC) [Ratio] 12.8 % 11.6-14.6 [facility] Erythrocyte distribution wid th standard deviationOrdered By: Jace Yanes on 08-10-2024 Erythrocyte distribution width (RBC) [Ratio] 41.7 fl 35.1-43.9 [facility] Glomerular filtration rate ( GFR) estimation/1.73 sq m using serum, plasma, or whole bOrdered By: Jace Yanes on 08-10-2024 GFR/1.73 sq M.predicted among non-blacks MDRD (S/P/Bld) [Vol rate/Area] 10 mL/min/{1.73_m2} Low >60 [facility] Comment on above: mL/min/1.73m2 CKD-EP I Creatinine Equation (2020) H AND P Exam - Hospital[facility] 08-10-2024 H&P Exam - Hospitalist Normal [facility] Hematocrit Auto (Bld) [Volum e fraction]Ordered By: Jace Yanes on 08-10-2024 Hematocrit (Bld) [Volume fraction] 39.0 % Low 40-54 [facility] Hemoglobin measurementOrdere d By: Jace Yanes on 08-10-2024 Hemoglobin (Bld) [Mass/Vol] 13.6 g/dL 13.0-16. 5 [facility] Immature granulocytes/100 WB C Auto (Bld)Ordered By: Jace Le on 08-10-2024 Immature granulocytes/100 WBC (Bld) 0.500 % 0.0-0.9 [facility] Comment on above: IG% - Immature Granu locytes (promyelocytes, myelocytes and metamyelocytes) > 1% indicates that a LEFT SHIFT is Present. International normalized rat io (INR) calculationOrdered By: Jace Yanes on 08-10-2024 INR Coag (Bld) [Relative time] 0.9 {INR} [facility] L499.0042on 08-10-2024 Trop T High Sen 193 ng/L Invalid Interpretation Code <=22 [facility] Comment on above: Result Comment: Crit ical Result(s) Called at:2226 by:??MONET FONG Results read back by same. Performed By: #### L 499.0042 ####[facility] [address] [place], [address] L501.4021on 08-10-2024 Trop T High Sen 211 ng/L Invalid Interpretation Code <=22 [facility] Comment on above: Result Comment: Crit ical Result(s) Called ACOLE at: 2114 by:JEY??Results read back by same. Performed By: #### L 501.4021, L300.3900, L100.0100, L500.2500, L300.4310 ####[facility] [address] [place], [address] Lipase measurementOrdered By : Eugenia London on 08-10-2024 Lipase [Catalytic activity/Vol] 25 U/L 13-75 [facility] Comment on above: Please note:LIPASE r evised reference range effective 22. New Lipase methodology. Expected to produce lower values than the previous assay method. NEW Reference Range: 13 - 75 U/L MCV (mean corpuscular volume ) determinationOrdered By: Jace Yanes on 08-10-2024 MCV (RBC) [Entitic vol] 88.2 fL 80-94 [facility] Mean corpuscular hemoglobin (MCH) determinationOrdered By: Jace Yanes on 08-10-2024 MCH (RBC) [Entitic mass] 30.8 pg 27.0-32.0 [facility] Mean corpuscular hemoglobin concentration (MCHC) determinationOrdered By: Jace Yanes on 08-10-2024 MCHC (RBC) [Mass/Vol] 34.9 g/dL 32-36 [facility] Mean platelet volume determi nationOrdered By: Jace Yanes on 08-10-2024 Platelet mean volume (Bld) [Entitic vol] 9.2 fL 6.2-12.0 [facility] Monocyte percentageOrdered B y: Jace Yanes on 08-10-2024 Monocytes/100 WBC (Bld) 8.3 % 0-10 [facility] Neutrophil percentageOrdered By: Jace Yanes on 08-10-2024 Neutrophils/100 WBC (Bld) 77.5 % High 47-70 [facility] Nucleated red blood cell per centageOrdered By: Jace Yanes on 08-10-2024 Nucleated RBC/100 WBC (Bld) [Ratio] 0 % 0-5 [facility] Partial Thromboplast Timeon 08-10-2024 aPTT Coag (Bld) [Time] 24.5 s Normal 24.1-36.2 [facility] Comment on above: Performed By: #### L 501.4021, L300.3900, L100.0100, L500.2500, L300.4310 ####[facility] [address] [facility] [place], [place], [id number] Platelet countOrdered By: Richmond Yanes on 08-10-2024 Platelets (Bld) [#/Vol] 359 10*3/uL 150-450 [facility] Potassium measurement (mass/ volume)Ordered By: Jace Yanes on 08-10-2024 Potassium (Unsp spec) [Mass/Vol] 4.0 mmol/L 3.3-5.1 [facility] Prothrombin Time w/INRon INR Coag (PPP) [Relative time] 0.9 {INR} Normal [facility] Comment on above: Performed By: #### L 501.4021, L300.3900, L100.0100, L500.2500, L300.4310 ####[facility] [address] [place], [address] PT Coag (PPP) [Time] 12.7 s Normal 11.7-14.9 [facility] Comment on above: Performed By: #### L 501.4021, L300.3900, L100.0100, L500.2500, L300.4310 ####[facility] [address] [place], [place], [address] Prothrombin timeOrdered By: Jace Yanes on 08-10-2024 PT Coag (PPP) [Time] 12.7 s 11.7-14.9 [facility] RBC Auto (Bld) [#/Vol]Ordere d By: Jace Yanes on 08-10-2024 RBC (Bld) [#/Vol] 4.42 10*6/uL Low 4.6-6.2 [facility] Serum creatinine measurement (mass/volume)Ordered By: Jace Yanes on 08-10-2024 Creatinine [Mass/Vol] 6.57 mg/dL High 0.70-1.20 [facility] Serum glucose measurement (m ass/volume)Ordered By: Jace Yanes on 08-10-2024 Glucose [Mass/Vol] 118 mg/dL High 70-99 [facility] Serum or plasma calcium jessie urement (mass/volume)Ordered By: Jace Yanes on 08-10-2024 Calcium [Mass/Vol] 11.0 mg/dL 7.6-11.0 [facility] Serum or plasma urea nitroge n measurement (mass/volume)Ordered By: Jace Yanes on 08-10-2024 Urea nitrogen [Mass/Vol] 48 mg/dL High 4-19 [facility] Sodium levelOrdered By: Jace Yanes on 08-10-2024 Sodium [Moles/Vol] 138 mmol/L 133-145 [facility] Troponin T.cardiac [Mass/vol ume] in Serum or Plasma by High sensitivity methodOrdered By: Jace Yanes on 08-10-2024 Troponin T.cardiac High sensitivity method [Mass/Vol] 208 ng/L High <22 [facility] Comment on above: Critical Result(s) C alled at:0007 by: MONET OLIVARES TO MADAI FRENCH Results read back by same. Troponin T.cardiac High sensitivity method [Mass/Vol] 193 ng/L High <22 [facility] Comment on above: Critical Result(s) C alled at:2226 by: MONET OLIVARES TO MARIOPARR Results read back by same. Troponin T.cardiac High sensitivity method [Mass/Vol] 211 ng/L High <22 [facility] Comment on above: Critical Result(s) C alled ACOLE at: 2114 by: JEY Results read back by same. White blood cell (WBC) count Ordered By: Jace Yanes on 08-10-2024 WBC (Bld) [#/Vol] 11.5 10*3/uL High 4.4-11.0 [facility] Surgery Visit Reporton 08-05 Surgery Visit Report Normal [facility] Endocrinology Visit Reporton 07-28-2024 Endocrinology Visit Report Normal [facility] Laboratory - Hematology and Cell countsOrdered By: Kendra Pierce on 07-28-2024 HbA1c (Bld) [Mass fraction] 7.3 % High 4.2-6.3 [facility] Discharge Instructionon 06-30 Discharge Instruction Normal [facility] MR/POSTOP.ANEon 07-20-2024 MR/POSTOP.ANE Normal [facility] MR/[id number] 07-20-2024 MR/POSTOPAN2 Normal [facility] Operative Reporton Operative Report Normal [facility] MR/PAT.ANEon 07-16-2024 MR/PAT.ANE Normal [facility] CNCOon 07-14-2024 CNCO Letter Text Normal [facility] Clinical report posted in error Letter Text Normal [facility] [facility] Anion gap in Serum or Plasma Ordered By: Garrison Valadez on 07-07-2024 Anion gap [Moles/Vol] 14 mmol/L 5-15 [facility] BUN/creatinine ratioOrdered By: Garrison Valadez on 07-07-2024 Urea nitrogen/Creatinine [Mass ratio] 7.5 mg/mg Low 10-20 [facility] Basic Metabolic Profile (BMP )on 07-07-2024 BUN/CRE 7.5 RATIO Low 10-20 [facility] Comment on above: Performed By: #### L 500.2500, L100.0500 ####[facility] [address] [place], [address] Calcium [Mass/Vol] 9.1 mg/dL Normal 7.6-11.0 [facility] Comment on above: Performed By: #### L 500.2500, L100.0500 ####[facility] [address] [place], [address] Chloride [Moles/Vol] 99 mmol/L Normal 98-108 [facility] Comment on above: Performed By: #### L 500.2500, L100.0500 ####[facility] [address] [place], [address] CO2 [Moles/Vol] 20.5 mmol/L Low 21.0-32.0 [facility] Comment on above: Performed By: #### L 500.2500, L100.0500 ####[facility] [address] [place], [address] Creatinine [Mass/Vol] 5.67 mg/dL High 0.70-1.20 [facility] Comment on above: Performed By: #### L 500.2500, L100.0500 ####[facility] [address] [place], [address] ECRCL 19.98 ml/min Low 50-250 [facility] Comment on above: Performed By: #### L 500.2500, L100.0500 ####[facility] [address] [place], [address] GAP 14 Normal 5-15 [facility] Comment on above: Performed By: #### L 500.2500, L100.0500 ####[facility] [address] [place], [address] GFR/1.73 sq M.predicted among non-blacks MDRD (S/P/Bld) [Vol rate/Area] 12 mL/min/{1.73_m2} Low >60 [facility] Comment on above: Result Comment: mL/m in/1.73m2 CKD-EPI Creatinine Equation (2020) Performed By: #### L 500.2500, L100.0500 ####[facility] [address] [place], [address] Glucose [Mass/Vol] 209 mg/dL High 70-99 [facility] Comment on above: Performed By: #### L 500.2500, L100.0500 ####[facility] [address] [place], [address] Potassium [Moles/Vol] 4.3 mmol/L Normal 3.3-5.1 [facility] Comment on above: Performed By: #### L 500.2500, L100.0500 ####[facility] [address] [place], [address] Sodium [Moles/Vol] 134 mmol/L Normal 133-145 [facility] Comment on above: Performed By: #### L 500.2500, L100.0500 ####[facility] [address] [place], [address] Urea nitrogen [Mass/Vol] 43 mg/dL High 4-19 [facility] Comment on above: Performed By: #### L 500.2500, L100.0500 ####[facility] [address] [place], [address] CBC-Complete Blood Cnt No Di ffon 07-07-2024 Erythrocyte distribution width (RBC) [Ratio] 13.7 % Normal 11.6-14.6 [facility] Comment on above: Performed By: #### L 500.2500, L100.0500 ####[facility] [address] [place], [address] Hematocrit (Bld) [Volume fraction] 29.6 % Low 40-54 [facility] Comment on above: Performed By: #### L 500.2500, L100.0500 ####[facility] [address] [place], [address] Hemoglobin (Bld) [Mass/Vol] 10.2 g/dL Low 13.0-16. 5 [facility] Comment on above: Performed By: #### L 500.2500, L100.0500 ####[facility] [address] [place], [address] MCH (RBC) [Entitic mass] 31.1 pg Normal 27.0-32.0 [facility] Comment on above: Performed By: #### L 500.2500, L100.0500 ####[facility] [address] [place], [address] MCHC (RBC) [Mass/Vol] 34.5 g/dL Normal 32-36 [facility] Comment on above: Performed By: #### L 500.2500, L100.0500 ####[facility] [address] [place], [address] MCV (RBC) [Entitic vol] 90.2 fL Normal 80-94 [facility] Comment on above: Performed By: #### L 500.2500, L100.0500 ####[facility] [address] [place], [address] Platelet mean volume (Bld) [Entitic vol] 9.0 fL Normal 6.2-12.0 [facility] Comment on above: Performed By: #### L 500.2500, L100.0500 ####[facility] [address] [place], [address] Platelets (Bld) [#/Vol] 273 10*3/uL Normal 150-450 [facility] Comment on above: Performed By: #### L 500.2500, L100.0500 ####[facility] [address] [place], [address] RBC (Bld) [#/Vol] 3.28 10*6/uL Low 4.6-6.2 [facility] Comment on above: Performed By: #### L 500.2500, L100.0500 ####[facility] [address] [place], [address] RDW SD 44.8 fl High 35.1-43.9 [facility] Comment on above: Performed By: #### L 500.2500, L100.0500 ####[facility] [address] [place], [address] WBC (Bld) [#/Vol] 7.9 10*3/uL Normal 4.4-11.0 [facility] Comment on above: Performed By: #### L 500.2500, L100.0500 ####[facility] [address] [place], [address] Carbon dioxide, total [Moles /volume] in Central venous bloodOrdered By: Garrison Valadez on 07-07-2024 CO2 [Moles/Vol] 20.5 mmol/L Low 21.0-32.0 [facility] Chloride assayOrdered By: Juwan Valadez on 07-07-2024 Chloride [Moles/Vol] 99 mmol/L 98-108 [facility] Erythrocyte distribution wid th (RBC) [Ratio]Ordered By: Garrison Valadez on 07-07-2024 Erythrocyte distribution width (RBC) [Entitic vol] 44.8 fL High 35.1-43.9 [facility] Erythrocyte distribution wid th ratioOrdered By: Garrison Valadez on 07-07-2024 Erythrocyte distribution width (RBC) [Ratio] 13.7 % 11.6-14.6 [facility] Erythrocyte distribution wid th standard deviationOrdered By: Garrison Valadez on 07-07-2024 Erythrocyte distribution width (RBC) [Ratio] 44.8 fl High 35.1-43.9 [facility] Estimation of creatinine jihan aranceOrdered By: Garrison Valadez on 07-07-2024 Estimated Creatinine Clearance Calc 19.98 ml/min Low 50-250 [facility] GFR/1.73 sq M.predicted antonietta g non-blacks MDRD (S/P/Bld) [Vol rate/Area]Ordered By: Garrison Valadez on 07-07-2024 Estimated GFR (MDRD) Non-Af Amer 12 Low >60 [facility] Comment on above: mL/min/1.73m2 CKD-EP I Creatinine Equation (2020) Glomerular filtration rate ( GFR) estimation/1.73 sq m using serum, plasma, or whole bOrdered By: Garrison Valadez on 07-07-2024 GFR/1.73 sq M.predicted among non-blacks MDRD (S/P/Bld) [Vol rate/Area] 12 mL/min/{1.73_m2} Low >60 [facility] Comment on above: mL/min/1.73m2 CKD-EP I Creatinine Equation (2020) Hematocrit Auto (Bld) [Volum e fraction]Ordered By: Garrison Valadez on 07-07-2024 Hematocrit (Bld) [Volume fraction] 29.6 % Low 40-54 [facility] Hemoglobin measurementOrdere d By: Garrison Valadez on 07-07-2024 Hemoglobin (Bld) [Mass/Vol] 10.2 g/dL Low 13.0-16. 5 [facility] MCV (mean corpuscular volume ) determinationOrdered By: Garrison Valadez 07-07-2024 MCV (RBC) [Entitic vol] 90.2 fL 80-94 [facility] Mean corpuscular hemoglobin (MCH) determinationOrdered By: Garrison Valadez 07-07-2024 MCH (RBC) [Entitic mass] 31.1 pg 27.0-32.0 [facility] Mean corpuscular hemoglobin concentration (MCHC) determinationOrdered By: Garrison Valadez on 07-07-2024 MCHC (RBC) [Mass/Vol] 34.5 g/dL 32-36 [facility] Mean platelet volume determi nationOrdered By: Garrison Valadez on 07-07-2024 Platelet mean volume (Bld) [Entitic vol] 9.0 fL 6.2-12.0 [facility] Operative Reporton Operative Report Normal [facility] Platelet countOrdered By: Juwan Valadez on 07-07-2024 Platelets (Bld) [#/Vol] 273 10*3/uL 150-450 [facility] Potassium (Unsp spec) [Mass/ Vol]Ordered By: Garrison Valadez on 07-07-2024 Potassium [Moles/Vol] 4.3 mmol/L 3.3-5.1 [facility] Potassium measurement (mass/ volume)Ordered By: Garrison Valadez on 07-07-2024 Potassium (Unsp spec) [Mass/Vol] 4.3 mmol/L 3.3-5.1 [facility] RBC Auto (Bld) [#/Vol]Ordere d By: Garrison Valadez on 07-07-2024 RBC (Bld) [#/Vol] 3.28 10*6/uL Low 4.6-6.2 [facility] Serum creatinine measurement (mass/volume)Ordered By: Garrison Valadez on 07-07-2024 Creatinine [Mass/Vol] 5.67 mg/dL High 0.70-1.20 [facility] Serum glucose measurement (m ass/volume)Ordered By: Garrison Valadez on 07-07-2024 Glucose [Mass/Vol] 209 mg/dL High 70-99 [facility] Serum or plasma calcium jessie urement (mass/volume)Ordered By: Garrison Valadez on 07-07-2024 Calcium [Mass/Vol] 9.1 mg/dL 7.6-11.0 [facility] Serum or plasma urea nitroge n measurement (mass/volume)Ordered By: Garrison Valadez on 07-07-2024 Urea nitrogen [Mass/Vol] 43 mg/dL High 4-19 [facility] Sodium levelOrdered By: Garrison Valadez on 07-07-2024 Sodium [Moles/Vol] 134 mmol/L 133-145 [facility] White blood cell (WBC) count Ordered By: Garrison Valadez on 07-07-2024 WBC (Bld) [#/Vol] 7.9 10*3/uL 4.4-11.0 [facility] CNCOon 07-02-2024 CNCO Letter Text Normal [facility] KID K/P PANC REC HLA AB SCRN on 06-24-2024 ALLOGEN RESULTS TO FOLLOW See Allogen re port to follow Normal [facility] Comment on above: Order Comment: Speci men Type: BLOOD SPECIMENOrdering Facility: [facility] Address: [address] [place] [address] Performed By: #### K PRHAS ####[facility] [id number] [address] [facility] CNPNon 06-18-2024 CNPN Telephone (INTMWS) LAURIE GONZALES ([id number]) 1980 M Date Time Provider Department 06/18/24 KRISTAL SULLIVAN INTWS During your visit today, we recorded the following information about you: Kim Loving MA 06/18/2024 3:31 PM Signed Type of form: BMV Request for Statement of Physician Form received via walk in When form is completed, Scan form into Epic AND call patient for tack picker Form has been forwarded to Physician Desk: SHAHID Osorio Jane, MA 06/23/2024 9:14 AM Signed Patient notified form is ready for tack picker. Allergies As of Date: 06/18/2024 Noted Allergy [...] AFFECTED AREA FIVE TIMES DAILY - Insulin [place], Disposable, (BD ULTRA-FINE CAROL PEN NEEDLE) 32 gauge x 32 ndle Use one needle for each dose. 7/day. - Zn Acetate-Meadowsweet- Ethel (AMERIGEL) gel Apply 1 application to affected [...] Status:Closed by VIANEY ROMO on 06/23/24 Normal [facility] MR/BMS.BVSon 06-17-2024 MR/BMS.BVS Normal [facility] CBC panel Auto (Bld)on 06-15 Erythrocyte distribution width (RBC) [Ratio] 13.3 % Normal 11.5-15.0 [facility] Comment on above: Order Comment: Speci men Type: BLOOD SPECIMENOrdering Facility: [facility] Address: [address] [place] [address] Performed By: #### 5 8410-2 ####[facility] [id number] [place] [address] [place] Hematocrit (Bld) [Volume fraction] 35.0 % Low 39.0-51.0 [facility] Comment on above: Order Comment: Speci men Type: BLOOD SPECIMENOrdering Facility: [facility] Address: [address] [place] [address] Performed By: #### 5 8410-2 ####[facility] [id number] [place] [address] [place] Hemoglobin (Bld) [Mass/Vol] 12.0 g/dL Low 13.0-17. 0 [facility] Comment on above: Order Comment: Speci men Type: BLOOD SPECIMENOrdering Facility: [facility] Address: [address] [place] [address] Performed By: #### 5 8410-2 ####[facility] [id number] [place] [address] [place] MCH (RBC) [Entitic mass] 30.2 pg Normal 26.0-34.0 [facility] Comment on above: Order Comment: Speci men Type: BLOOD SPECIMENOrdering Facility: [facility] Address: [address] [place] [address] Performed By: #### 5 8410-2 ####[facility] [id number] [place] [address] [place] MCHC (RBC) [Mass/Vol] 34.3 g/dL Normal 30.5-36.0 [facility] Comment on above: Order Comment: Speci men Type: BLOOD SPECIMENOrdering Facility: [facility] Address: [address] [place] [address] Performed By: #### 5 8410-2 ####[facility] [id number] [place] [address] [place] MCV (RBC) [Entitic vol] 87.9 fL Normal 80.0-100.0 [facility] Comment on above: Order Comment: Speci men Type: BLOOD SPECIMENOrdering Facility: [facility] Address: [address] [place] [address] Performed By: #### 5 8410-2 ####[facility] [id number] [place] [address] [place] Nucleated RBC (Bld) [#/Vol] 10*3/uL Normal <0.01 [facility] Comment on above: Order Comment: Speci men Type: BLOOD SPECIMENOrdering Facility: [facility] Address: [address] [place] [address] Performed By: #### 5 8410-2 ####[facility] [id number] [place] [id number] [place] Platelet mean volume (Bld) [Entitic vol] 9.3 fL Normal 9.0-12.7 [facility] Comment on above: Order Comment: Speci men Type: BLOOD SPECIMENOrdering Facility: [facility] Address: [address] [place] [address] Performed By: #### 5 8410-2 ####[facility] [id number] [place] [address] [place] Platelets (Bld) [#/Vol] 290 10*3/uL Normal 150-400 [facility] Comment on above: Order Comment: Speci men Type: BLOOD SPECIMENOrdering Facility: [facility] Address: [address] [place] [address] Performed By: #### 5 8410-2 ####[facility] [id number] [place] [address] [place] RBC (Bld) [#/Vol] 3.98 10*6/uL Low 4.20-6.00 [facility] Comment on above: Order Comment: Speci men Type: BLOOD SPECIMENOrdering Facility: [facility] Address: [address] [place] [address] Performed By: #### 5 8410-2 ####[facility] [id number] [place] [address] [place] WBC (Bld) [#/Vol] 8.75 10*3/uL Normal 3.70-11.00 [facility] Comment on above: Order Comment: Speci men Type: BLOOD SPECIMENOrdering Facility: [facility] Address: [address] [place] [address] Performed By: #### 5 8410-2 ####[facility] [id number] [place] [id number] [place] CNOVon 06-15-2024 CNOV Office Visit (INTMWS) LAURIE GONZALES ([id number]) 1980 M Date Time Provider Department 06/15/24 [...] thirst. - Discussed Mg and Cliff with [facility] for appetite control. - On kidney and pancreas transplant list with [facility]. - Taking vitamin D, increased to 3 pills daily. CAD: - LA in March, with stent placement in LAD. - Reports nausea, weakness, and difficulty walking during LA. - Underwent stress test post-LA. - Taking aspirin daily. - On metoprolol succinate 25 mg daily and amlodipine. - Stopped lisinopril due to lack of refills. Pulmonary Edema: - Developed pulmonary edema post-LA, requiring BiPAP for a week. - Denies current asthma symptoms; not taking montelukast. Weight Management: - Current weight 202 lbs, down from 211 lbs. - Reports weight fluctuations due to fluid retention and dialysis. 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 - Enjoys outdoor activities like fishing and riding a 4-vick. - Describes self as lazy and does not engage in regular exercise. - Sleeps well and denies significant stress. 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 [...] (FREESTYLE LITE STRIPS) test strip MEDICAL SUPPLY [facility].Tx.Gluc.Intol,La c-Free,Soy (GLUCERNA SHAKE) liqd rosuvastatin (CRESTOR) 20 mg tablet insulin aspart U-100 (NOVOLOG FLEXPEN U-100 INSULIN) 100 unit/mL (3 mL) alcohol swabs padm Insulin [place], Disposable, (BD ULTRA-FINE CAROL PEN NEEDLE) 32 gauge x 5/32 ndle Zn Acetate-Meadowsweet- Ethel (AMERIGEL) gel metoprolol succinate ER (TOPROL XL) 25 mg 24 hr tablet amLODIPine (NORVASC) 5 mg tablet Cholecalciferol, Vitamin D3, 125 mcg (5,000 unit) cap insulin glargine (LANTUS SOLOSTAR, BASAGLAR KWIKPEN) 100 unit/mL (3 mL) glucose 4 gram chewable tablet lancets (FREESTYLE LANCETS) 28 gauge [facility] Maintenance Depression Screening Anxiety Screening BP [...] Completed comprehensive (more content not included)... Normal [facility] Comprehensive metabolic 2000 panelon 06-15-2024 Albumin [Mass/Vol] 4.5 g/dL Normal 3.9-4.9 [facility] Comment on above: Order Comment: Bam merritt Type: BLOOD SPECIMEN [facility] Address: [address] [place] [address] Performed By: #### 2 4331-1, 3015-3, 88488-2 #### [facility] CLIA [id number] [address] [place] [address] [place] ALP [Catalytic activity/Vol] 95 U/L Normal 38-113 [facility] Comment on above: Order Comment: Bam merritt Type: BLOOD SPECIMEN [facility] Address: [address] [place] [address] Performed By: #### 2 4331-1, 6-3, 42374-4 #### [facility] CLIA [id number] [address] [place] [address] [place] ALT [Catalytic activity/Vol] 21 U/L Normal 10-54 [facility] Comment on above: Order Comment: Speci men Type: BLOOD SPECIMEN [facility] Address: [address] [place] [address] Performed By: #### 2 4331-1, 3, #### [facility] CLIA [id number] [address] [place] [address] [place] Anion gap [Moles/Vol] 12 mmol/L Normal 8-15 [facility] Comment on above: Order Comment: Speci men Type: BLOOD SPECIMEN [facility] Address: [address] [place] [address] Performed By: #### 2 4331-1, 3015-05, #### [facility] CLIA [id number] [address] [place] [address] [place] AST [Catalytic activity/Vol] 48 U/L High 14-40 [facility] Comment on above: Order Comment: Speci men Type: BLOOD SPECIMEN [facility] Address: [address] [place] [address] Performed By: #### 2 4331-1, 3015-05, #### [facility] CLIA [id number] [address] [place] [address] [place] Bilirubin [Mass/Vol] 0.4 mg/dL Normal 0.2-1.3 [facility] Comment on above: Order Comment: Speci men Type: BLOOD SPECIMEN [facility] Address: [address] [place], [place] [address] Performed By: #### 2 4331-1, 3015-05, #### [facility] CLIA [id number] [address] [place], [place] [address] [place] Calcium [Mass/Vol] 10.1 mg/dL Normal 8.5-10.2 [facility] Comment on above: Order Comment: Speci men Type: BLOOD SPECIMEN [facility] Address: [address] [place] [address] Performed By: #### 2 4331-1, 3015-3, #### [facility] CLIA [id number] [address] [place], [place] [address] [place] Chloride [Moles/Vol] 97 mmol/L Low 98-107 [facility] Comment on above: Order Comment: Speci men Type: BLOOD SPECIMEN [facility] Address: [address] [place] [address] Performed By: #### 2 4331-1, 3, #### [facility] CLIA [id number] [address] [place] [address] [place] CO2 [Moles/Vol] 27 mmol/L Normal 22-30 [facility] Comment on above: Order Comment: Speci men Type: BLOOD SPECIMEN [facility] Address: [address] [place] [address] Performed By: #### 2 4331-1, 3, #### [facility] CLIA [id number] [address] [place] [address] [place] Creatinine [Mass/Vol] 4.89 mg/dL High 0.73-1.22 [facility] Comment on above: Order Comment: Speci men Type: BLOOD SPECIMEN [facility] Address: [address] [place] [address] Performed By: #### 2 4331-1, 3, 82570-8 #### [facility] CLIA [id number] [address] [place] [address] [place] Creatinine and Glomerular filtration rate.predicted panel (S/P/Bld) 14 mL/min/1.73m??? Low >=60 [facility] Comment on above: Order Comment: Speci men Type: BLOOD SPECIMEN [facility] Address: [address] [place] [address] Result Comment: Destinee mated Glomerular Filtration Rate [...] GFR. Performed By: #### 2 4331-1, 6-3, 32534-6 #### [facility] CLIA [id number] [address] [place] [address] [place] Glucose [Mass/Vol] 167 mg/dL High 74-99 [facility] Comment on above: Order Comment: Bam merritt Type: BLOOD SPECIMEN [facility] Address: [address] [place] [address] Result Comment: The [place] [employer] (ADA) provides guidance for cutoff [...] Standards of Medical Care in Diabetes 2016, [place] [employer]. Diabetes Care. 2016.39(Suppl 1). Performed By: #### 2 4331-1, 6-3, #### [facility] CLIA [id number] [address] [place] [address] [place] Potassium [Moles/Vol] 4.9 mmol/L Normal 3.7-5.1 [facility] Comment on above: Order Comment: Bam merritt Type: BLOOD SPECIMEN [facility] Address: [address] [place] [address] Performed By: #### 2 4331-1, 3016-3, 71854-7 #### [facility] CLIA [id number] [address] [place] [address] [place] Protein [Mass/Vol] 7.3 g/dL Normal 6.3-8.0 [facility] Comment on above: Order Comment: Speci men Type: BLOOD SPECIMEN [facility] Address: [address] [place] [address] Performed By: #### 2 4331-1, 3015-3, 47640-4 #### [facility] CLIA [id number] [address] [place] [address] [place] Sodium [Moles/Vol] 136 mmol/L Normal 136-144 [facility] Comment on above: Order Comment: Speci men Type: BLOOD SPECIMEN [facility] Address: [address] [place] [address] Performed By: #### 2 4331-1, 3015-3, 84210-1 #### [facility] CLIA [id number] [address] [place] [address] [place] Urea nitrogen [Mass/Vol] 35 mg/dL High 9-24 [facility] Comment on above: Order Comment: Speci men Type: BLOOD SPECIMEN [facility] Address: [address] [place] [address] Performed By: #### 2 4331-1, 3015-3, 52989-8 #### [facility] CLIA [id number] [address] [place] [address] [place] HbA1c (Bld)on 06-15-2024 Average glucose Estimated from glycated hemoglobin (Bld) [Mass/Vol] 206 mg/dL Normal [facility] Comment on above: Order Comment: Speci men Type: BLOOD SPECIMENOrdering Facility: [facility] Address: [address] [place] [address] Result Comment: eAG: (Estimated average glucose) is a calculated value from HgbA1c and is customer solutions representative of the average blood glucose level in the last 2-3 month period. Performed By: #### 5 5454-3 ####[facility] [id number] [place] [address] [place] HbA1c (Bld) [Mass fraction] 8.8 % High 4.3-5.6 [facility] Comment on above: Order Comment: Bam merritt Type: BLOOD SPECIMENOrdering Facility: [facility] Address: [address] [place] [address] Result Comment: Amer ican Diabetes Association guidelines indicate that patients with HgbA1c in the range 5.7-6.4% are at increased risk for development of diabetes, and intervention by lifestyle modification may be beneficial. HgbA1c greater or equal to 6.5% is considered diagnostic of diabetes. Performed By: #### 5 5454-3 ####[facility] [id number] [place] [address] [place] Lipid 1996 panelon 5 Cholesterol [Mass/Vol] 166 mg/dL Normal <200 [facility] Comment on above: Order Comment: Bam merritt Type: BLOOD SPECIMEN [facility] Address: [address] [place] [address] Result Comment: <200 mg/dL, Desirable 200-239 mg/dL, Borderline high >239 mg/dL, High Performed By: #### 2 4331-1, 3016-3, 61753-4 #### [facility] CLIA [id number] [address] [place] [address] [place] Cholesterol in HDL [Mass/Vol] 60 mg/dL Normal >39 [facility] Comment on above: Order Comment: Bam merritt Type: BLOOD SPECIMEN [facility] Address: [address] [place] [address] Result Comment: 40-5 9 mg/dL, Acceptable >59 mg/dL, High: Negative risk factor for coronary heart disease <40 mg/dL, Low: Positive risk factor for coronary heart disease Performed By: #### 2 4331-1, 3015-3, #### [facility] CLIA [id number] [address] [place] [address] [place] Cholesterol in LDL [Mass/Vol] 87 mg/dL Normal <100 [facility] Comment on above: Order Comment: Bam merritt Type: BLOOD SPECIMEN [facility] Address: [address] [place] [address] Result Comment: <100 mg/dL, Optimal 100-129 mg/dL, Near optimal/above optimal 130-159 mg/dL, Borderline high 160-189 mg/dL, High >189 mg/dL, Very high Secondary prevention optimal LDL Cholesterol levels are recommended to be < 70 mg/dL Performed By: #### 2 4331-1, 3015-3, #### [facility] CLIA [id number] [address] [place] [address] [place] Cholesterol in LDL/Cholesterol in HDL [Mass ratio] 1.45 {ratio} Normal <2.54 [facility] Comment on above: Order Comment: Bam merritt Type: BLOOD SPECIMEN [facility] Address: [address] [place] [address] Result Comment: Refe rence: 1. National Cholesterol Education Program ATP III Guideline At-A-Glance Quick Desk Reference: National Heart, Lung, and Blood [place]. National Institutes of Health. 2001: NIH Publication No. 01-3305. 2. An International Atherosclerosis Society position paper: global recommendations for the management of dyslipidemia: executive summary, Atherosclerosis. 2014: 232(2):410-413. Performed By: #### 2 4331-1, 3015-3, #### [facility] CLIA [id number] [address] [place] [address] [place] Cholesterol in VLDL [Mass/Vol] 19 mg/dL Normal <30 [facility] Comment on above: Order Comment: Bam merritt Type: BLOOD SPECIMEN [facility] Address: [address] [place] [address] Performed By: #### 2 4331-1, 3015-05, #### [facility] CLIA [id number] [address] [place] [address] [place] Cholesterol non HDL [Mass/Vol] 106 mg/dL Normal <130 [facility] Comment on above: Order Comment: Speci men Type: BLOOD SPECIMEN [facility] Address: [address] [place], [place] [address] Result Comment: <130 mg/dL, Optimal 130-159 mg/dL, Near optimal/above optimal 160-189 mg/dL, Borderline high 190-219 mg/dL, High >219 mg/dL, Very high Secondary prevention optimal non HDL Cholesterol levels are recommended to be <100 mg/dL Performed By: #### 2 4331-1, 3015-05, #### [facility] CLIA [id number] [address] [place] [address] [place] Cholesterol.total/Cholester ol in HDL [Mass ratio] 2.77 {ratio} Normal <5.10 [facility] Comment on above: Order Comment: Speci men Type: BLOOD SPECIMEN [facility] Address: [address] [place], [place] [address] Performed By: #### 2 4331-1, 3015-05, #### [facility] CLIA [id number] [address] [place] [address] [place] FASTING TIME 12 hrs Normal [facility] Comment on above: Order Comment: Speci men Type: BLOOD SPECIMEN [facility] Address: [address] [place], [place] [address] Performed By: #### 2 4331-1, 3015-05, #### [facility] CLIA [id number] [address] [place] [address] [place] Triglyceride [Mass/Vol] 96 mg/dL Normal <150 [facility] Comment on above: Order Comment: Speci men Type: BLOOD SPECIMEN [facility] Address: [address] [place] [address] Result Comment: <150 mg/dL, Normal 150-199 mg/dL, Borderline high 200-499 mg/dL, High >499 mg/dL, Very high Performed By: #### 2 4331-1, 3016-3, 10789-8 #### [facility] CLIA [id number] [address] [place] [address] [place] TSH SerPl-aCncon 06-15-2024 TSH Qn 1.830 m[IU]/L Normal 0.270-4.200 [facility] Comment on above: Order Comment: Speci men Type: BLOOD SPECIMEN [facility] Address: [address] [place] [address] Performed By: #### 2 4331-1, 3016-3, 55866-4 #### [facility] CLIA [id number] [address] [place] [address] [place] AV Fistula/Dialysis Graft Sc anon 06-10-2024 AV Fistula/Dialysis Graft Scan Normal [facility] Arterial study reportOrdered By: Garrison Valadez on 06-10-2024 Noninvasive arteriosclerosis study report [facility] [address] [place] [address] AV Fistula/Dialysis Graft Scan 06/10/24 1303 MR#: [id number] Acct: [id number] Name: LAURIE GONZALES Rep #:[id number] : 1980 43 From: Garrison Ricketts Attending Dr: LUCÍA Mcdermott Stat us: REG CLI Ordering Dr: Thalia Lea Date: Location: [facility] Sex: M C Admitted: Reason For Study [...] Date Dictated: 06/10/24 1303 Date Transcribed: 06/10/241833 Surgical Supply Assistant: Signed [facility] Work Phone: Dian 05-25-2024 EMANI Telephone (TXCTGL) CHRISTIAN,LAURIE M ([id number]) 1980 M Date Time Provider Department 05/25/24 [...] a phone call from pt's mother Page ([phone]) regarding support. ADITHYA reviewed the follow up care sequence, including lab work twice a week and twice a week post transplant clinic appointments. ADITHYA also discussed the need to have a caregiver full time staff interpreter for 2 weeks post transplant. Page reports being 66yrs old and she is retired. Page stated she is available whenever needed to assist with caregiver / transportation support. Page verified her commitment to help pt post transplant. WILBUR Andrews Transplant Upholstery Technician Ciarra Catalan LISW 05/27/2024 1:53 PM Signed ADITHYA returned phone call from pt's ex- Ira ([phone]) regarding support. Ira disclosed that her and the pt have been back together for several years and they reside in the same home. ADITHYA reviewed the follow up care sequence, including lab work twice a week and twice a week post transplant clinic appointments. ADITHYA also discussed the need to have a caregiver full time staff interpreter for 2 weeks post transplant. Ira verbalized understanding. Ira stated she is a traveling RN and she would be able to assist with support before and after work. Ira stated while she is working the pt's mother will be at their home in order to assist with support. Ira reports they will work in shifts in order to ensure full time staff interpreter support. Ira verified her commitment to help pt post transplant. WILBUR Andrews Transplant Upholstery Technician Allergies As of Date: 05/25/2024 Noted Allergy [...] AFFECTED AREA FIVE TIMES DAILY - Insulin [place], Disposable, (BD ULTRA-FINE CAROL PEN NEEDLE) 32 gauge x 5/32 ndle Use one needle for each dose. 7/day. - Zn Acetate-Meadowsweet- Ethel (AMERIGEL) gel Apply 1 application to affected [...] due to (more content not included)... Normal [facility] CNPGloria 04-29-2024 CNPN Telephone (TXCTGL) LAURIE GONZALES ([id number]) 1980 Date Time Provider Department 04/29/24 CIARRA [...] will await phone calls. JUSTIN Andrews-S Transplant Upholstery Technician Allergies As of Date: 04/29/2024 Noted Allergy [...] AFFECTED AREA FIVE TIMES DAILY - Insulin [place], Disposable, (BD ULTRA-FINE CAROL PEN NEEDLE) 32 gauge x 5/32 ndle Use one needle for each dose. 7/day. - Zn Acetate-Meadowsweet- Ethel (AMERIGEL) gel Apply 1 application to affected [...] Status:Closed by CIARRA CATALAN on 04/29/24 Normal [facility] MR/BMS.BVSon 04-22-2024 MR/BMS.BVS Normal [facility] Bedside Glucoseon 04-21-2024 FINGERSTICK GLU 112 mg/dL High 74-106 [facility] Comment on above: Result Comment: EDUARDO GEMENT OF PATIENT CARE PER NURSING PROTOCOL Performed By: #### L 501.080 ####[facility] [address] [place], [place], [address] Bedside Glucoseon 04-20-2024 FINGERSTICK GLU 188 mg/dL High 74-106 [facility] Comment on above: Result Comment: EDUARDO GEMENT OF PATIENT CARE PER NURSING PROTOCOL Performed By: #### L 501.080 ####[facility] [address] [place], [place], [id number] Emergency Department Summary on 04-20-2024 Emergency Department Summary Normal [facility] de[facility]dered By: Kristi Murillo on 04-20-2024 Bedside Glucose ([facility] Panel) 188 mg/dL High 74-106 [facility] Comment on above: MANAGEMENT OF PATIEN T CARE PER NURSING PROTOCOL Glucose [Mass/Vol] 188 mg/dL High 74-106 [facility] Comment on above: MANAGEMENT OF PATIEN T CARE PER NURSING PROTOCOL CNNURSEon 04-12-2024 CNNURSE Nurse Visit (CARDWS) LAURIE GONZALES ([id number]) 1980 M Date Time Provider Department 04/12/24 9:45 AM [facility] During your visit today, we recorded [...] mouth as needed. - Ketone Blood Test (Nanotion XTRA B-KETONE) strp Test KETONES as directed. [...] AFFECTED AREA FIVE TIMES DAILY - Insulin [place], Disposable, (BD ULTRA-FINE CAROL PEN NEEDLE) 32 gauge x 5/32 ndle Use one needle for each dose. 7/day. - Zn Acetate-Meadowsweet- Ethel (AMERIGEL) gel Apply 1 application to affected [...] 04/12/2024 Route: INTRAVENOUS Cosign accepted by RONEN ELDRIDGE[[id number]] on 04/12/2024 11:21 AM Encounter Status:Closed by WILLIE GONZALEZ on 04/13/24 Normal [facility] CARDIAC PERF STRESS/PHARM on 04-12-2024 NM CARDIAC PERF STRESS/PHARM * * *Final Report* * * DATE OF EXAM: Apr 12 2024 10:35AM [address] CARDIAC PERF STRESS/PHARM / PROCEDURE REASON: Encounter for other preprocedural examination * * * * Physician Interpretation * * * * Stress Milk Drying Machine Operator Report: [facility] Date of service: 04/12/2024 7:27:59 AM Supervising [...] later. See administered radiotracer and doses below. [facility] Date of service: 04/12/2024 7:27:59 AM Ordering [...] Final * * * Stress ECG Report: [facility] Date of service: 04/12/2024 7:27:59 AM Ordering physician: RONEN ELDRIDGE distribution specialist: Willie Gonzalez Interpreting physician: Venkata García [...] 120/78 mmHg. The double product achieved was [id number]. Medications: Last Used CARVEDILOL 1 Days LISINOPRIL 1 Days CRESTOR 1 Days Resting ECG: Normal Sinus Rhythm and Rare PACs (<3/Min) Symptoms at rest: No symptoms Pharamcologic Protocol: Regadenoson Stress Exercise Table: +-----+--+---+---+ Stage HR SYS TOMMIE +-----+--+---+---+ 1 86 +-----+--+-- (more content not included)... Normal [facility] Heart Perfusion W stress and W radionuclide Rickey 04-12-2024 * * *Final Report* * * DATE OF EXAM: Apr 12 2024 10:35AM [facility] 0006 - NM CARDIAC PERF STRESS/PHARM / PROCEDURE REASON: Encounter for other preprocedural examination * * * * Physician Interpretation * * * * Stress Milk Drying Machine Operator Report: [facility] Date of service: 04/12/2024 7:27:59 AM Supervising [...] later. See administered radiotracer and doses below. [facility] Date of service: 04/12/2024 7:27:59 AM Ordering [...] Final * * * Stress ECG Report: [facility] Date of service: 04/12/2024 7:27:59 AM Ordering physician: RONEN ELDRIDGE distribution specialist: Willie Gonzalez Interpreting physician: Venkata García [...] content not included)... DIVISION OF RADIOLOGY Provider, [facility] [place] - 04/12/2024 * * *Final Report* * * DATE OF EXAM: Apr 12 2024 10:35AM [facility] 0006 - [place] CARDIAC PERF STRESS/PHARM / PROCEDURE REASON: Encounter for other preprocedural examination * * * * Physician Interpretation * * * * Stress Milk Drying Machine Operator Report: [facility] Date of service: 04/12/2024 7:27:59 AM Supervising [...] later. See administered radiotracer and doses below. [facility] Date of service: 04/12/2024 7:27:59 AM Ordering [...] Final * * * Stress ECG Report: [facility] Date of service: 04/12/2024 7:27:59 AM Ordering physician: RONEN ELDRIDGE distribution specialist: Willie Gonzalez Interpreting physician: Venkata García [...] 120/78 mmHg. The double product achieved was [id number]. Medications: Last Used CARVEDILOL 1 Days LISINOPRIL 1 Days CRESTOR 1 Days Resting ECG: Normal Sinus Rhythm and Rare PACs (<3/Min) Symptoms at rest: N (more content not included)... [facility] Radiology Study observation (narrative) [facility] NM Heart Perfusion W stress and W radionuclide IVOrdered By: [facility]cf Provider on 04-12-2024 [facility] Dialysis Vein Map PRE-OP CHELE ATon 03-16-2024 Dialysis Vein Map PRE-OP BILAT Normal [facility] Lower Ext Art Exam w/o Exerc miguel angel 03-16-2024 Lower Ext Art Exam w/o Exercis Normal [facility] Cardiology Visit Reporton Cardiology Visit Report Normal [facility] Endocrinology Visit Reporton 02-25-2024 Endocrinology Visit Report Normal [facility] CNPNon 02-06-2024 EMANI Telephone (TXCTGL) LAURIE GONZALES ([id number]) 1980 M Date Time Provider Department 02/06/24 KIDNEY TXP COORDINATORS TXCTGL During your visit today, we recorded the following information about you: Genet Persaud 02/06/2024 3:08 PM Signed Patient called regarding an update . Requesting a return call from the program and research coordinator. Please call him at [phone]. Roro Batista, RN 02/10/2024 10:14 AM Signed [...] know I will follow up with our financial compliance examiner to assist and give him a call. [...] mouth as needed. - Ketone Blood Test (Nanotion XTRA B-KETONE) strp Test KETONES as directed. [...] AFFECTED AREA FIVE TIMES DAILY - Insulin [place], Disposable, (BD ULTRA-FINE CAROL PEN NEEDLE) 32 gauge x 32 ndle Use one needle for each dose. 7/day. - Zn Acetate-Meadowsweet- Ethel (AMERIGEL) gel Apply 1 application to affected [...] Status:Closed by RORO POLLARD on 02/10/24 Normal [facility] Basic Metabolic Profile (BMP )on 02-03-2024 BUN Normal 7-18 [facility] Comment on above: Result Comment: Canc elled via OM: Order cancelled - Patient discharged Performed By: #### L 100.0100, L500.2500 ####[facility] [address] [facility] [address] BUN/CRE Normal 10-20 [facility] Comment on above: Result Comment: Canc elled via OM: Order cancelled - Patient discharged Performed By: #### L 100.0100, L500.2500 ####[facility] [address] [place], [address] CA,Total Normal 8.5-10.1 [facility] Comment on above: Result Comment: Canc elled via OM: Order cancelled - Patient discharged Performed By: #### L 100.0100, L500.2500 ####[facility] [address] [place], [address] CL Normal 98-107 [facility] Comment on above: Result Comment: Canc elled via OM: Order cancelled - Patient discharged Performed By: #### L 100.0100, L500.2500 ####[facility] [address] [place], [address] CO2 Normal 21.0-32.0 [facility] Comment on above: Result Comment: Canc elled via OM: Order cancelled - Patient discharged Performed By: #### L 100.0100, L500.2500 ####[facility] [address] [place], [address] CREAT,SERUM Normal 0.70-1.30 [facility] Comment on above: Result Comment: Canc elled via OM: Order cancelled - Patient discharged Performed By: #### L 100.0100, L500.2500 ####[facility] [address] [place], [address] EST GFR Normal >60 [facility] Comment on above: Result Comment: Canc elled via OM: Order cancelled - Patient discharged Performed By: #### L 100.0100, L500.2500 ####[facility] [address] [place], [address] EST GFR - AA Normal >60 [facility] Comment on above: Result Comment: Canc elled via OM: Order cancelled - Patient discharged Performed By: #### L 100.0100, L500.2500 ####[facility] [address] [place], [address] GAP Normal 5-15 [facility] Comment on above: Result Comment: Canc elled via OM: Order cancelled - Patient discharged Performed By: #### L 100.0100, L500.2500 ####[facility] [address] [place], [address] GLU Normal 74-106 [facility] Comment on above: Result Comment: Canc elled via OM: Order cancelled - Patient discharged Performed By: #### L 100.0100, L500.2500 ####[facility] [address] [place], [address] Potassium Normal 3.5-5.1 [facility] Comment on above: Result Comment: Canc elled via OM: Order cancelled - Patient discharged Performed By: #### L 100.0100, L500.2500 ####[facility] [address] [place], [address] Basic Metabolic Profile (BMP) Normal 136-145 [facility] Comment on above: Result Comment: Canc elled via OM: Order cancelled - Patient discharged Performed By: #### L 100.0100, L500.2500 ####[facility] [address] [place], [address] CBC W/Diff, Automatedon 11-0 5-2023 Absolute Neut Normal 2.0-7.7 [facility] Comment on above: Result Comment: Canc elled via OM: Order cancelled - Patient discharged Performed By: #### L 100.0100, L500.2500 ####[facility] [address] [place], [address] HCT Normal 40-54 [facility] Comment on above: Result Comment: Canc elled via OM: Order cancelled - Patient discharged Performed By: #### L 100.0100, L500.2500 ####[facility] [address] [place], [address] HGB Normal 13.0-16.5 [facility] Comment on above: Result Comment: Canc elled via OM: Order cancelled - Patient discharged Performed By: #### L 100.0100, L500.2500 ####[facility] [address] [place], [address] MCH Normal 27.0-32.0 [facility] Comment on above: Result Comment: Canc elled via OM: Order cancelled - Patient discharged Performed By: #### L 100.0100, L500.2500 ####[facility] [address] [place], [address] MCHC Normal 32-36 [facility] Comment on above: Result Comment: Canc elled via OM: Order cancelled - Patient discharged Performed By: #### L 100.0100, L500.2500 ####[facility] [address] [place], [address] MCV Normal 80-94 [facility] Comment on above: Result Comment: Canc elled via OM: Order cancelled - Patient discharged Performed By: #### L 100.0100, L500.2500 ####[facility] [address] [place], [address] NEUT% Normal 47-70 [facility] Comment on above: Result Comment: Canc elled via OM: Order cancelled - Patient discharged Performed By: #### L 100.0100, L500.2500 ####[facility] [address] [place], [address] PLT Normal 150-450 [facility] Comment on above: Result Comment: Canc elled via OM: Order cancelled - Patient discharged Performed By: #### L 100.0100, L500.2500 ####[facility] [address] [place], [address] RBC Normal 4.6-6.2 [facility] Comment on above: Result Comment: Canc elled via OM: Order cancelled - Patient discharged Performed By: #### L 100.0100, L500.2500 ####[facility] [address] [place], [address] RDW CV Normal 11.6-14.6 [facility] Comment on above: Result Comment: Canc elled via OM: Order cancelled - Patient discharged Performed By: #### L 100.0100, L500.2500 ####[facility] [address] [place], [address] RDW SD Normal 35.1-43.9 [facility] Comment on above: Result Comment: Canc elled via OM: Order cancelled - Patient discharged Performed By: #### L 100.0100, L500.2500 ####[facility] [address] [place], [address] WBC Normal 4.4-11.0 [facility] Comment on above: Result Comment: Canc elled via OM: Order cancelled - Patient discharged Performed By: #### L 100.0100, L500.2500 ####[facility] [address] [place], [address] Basic Metabolic Profile (BMP )on 02-02-2024 BUN Normal 7-18 [facility] Comment on above: Result Comment: Canc elled via OM: Order cancelled - Patient discharged Performed By: #### L 500.2500, L100.0100 ####[facility] [address] [place], [address] BUN/CRE Normal 10-20 [facility] Comment on above: Result Comment: Canc elled via OM: Order cancelled - Patient discharged Performed By: #### L 500.2500, L100.0100 ####[facility] [address] [place], [address] CA,Total Normal 8.5-10.1 [facility] Comment on above: Result Comment: Canc elled via OM: Order cancelled - Patient discharged Performed By: #### L 500.2500, L100.0100 ####[facility] [address] [place], [address] CL Normal 98-107 [facility] Comment on above: Result Comment: Canc elled via OM: Order cancelled - Patient discharged Performed By: #### L 500.2500, L100.0100 ####[facility] [address] [place], [address] CO2 Normal 21.0-32.0 [facility] Comment on above: Result Comment: Canc elled via OM: Order cancelled - Patient discharged Performed By: #### L 500.2500, L100.0100 ####[facility] [address] [place], [address] CREAT,SERUM Normal 0.70-1.30 [facility] Comment on above: Result Comment: Canc elled via OM: Order cancelled - Patient discharged Performed By: #### L 500.2500, L100.0100 ####[facility] [address] [place], [address] EST GFR Normal >60 [facility] Comment on above: Result Comment: Canc elled via OM: Order cancelled - Patient discharged Performed By: #### L 500.2500, L100.0100 ####[facility] [address] [place], [address] EST GFR - AA Normal >60 [facility] Comment on above: Result Comment: Canc elled via OM: Order cancelled - Patient discharged Performed By: #### L 500.2500, L100.0100 ####[facility] [address] [place], [address] GAP Normal 5-15 [facility] Comment on above: Result Comment: Canc elled via OM: Order cancelled - Patient discharged Performed By: #### L 500.2500, L100.0100 ####[facility] [address] [place], [address] GLU Normal 74-106 [facility] Comment on above: Result Comment: Canc elled via OM: Order cancelled - Patient discharged Performed By: #### L 500.2500, L100.0100 ####[facility] [address] [place], [address] Potassium Normal 3.5-5.1 [facility] Comment on above: Result Comment: Canc elled via OM: Order cancelled - Patient discharged Performed By: #### L 500.2500, L100.0100 ####[facility] [address] [place], [address] Basic Metabolic Profile (BMP) Normal 136-145 [facility] Comment on above: Result Comment: Canc elled via OM: Order cancelled - Patient discharged Performed By: #### L 500.2500, L100.0100 ####[facility] [address] [place], [address] CBC W/Diff, Automatedon 11-0 -2023 Absolute Neut Normal 2.0-7.7 [facility] Comment on above: Result Comment: Canc elled via OM: Order cancelled - Patient discharged Performed By: #### L 500.2500, L100.0100 ####[facility] [address] [place], [address] HCT Normal 40-54 [facility] Comment on above: Result Comment: Canc elled via OM: Order cancelled - Patient discharged Performed By: #### L 500.2500, L100.0100 ####[facility] [address] [place], [address] HGB Normal 13.0-16.5 [facility] Comment on above: Result Comment: Canc elled via OM: Order cancelled - Patient discharged Performed By: #### L 500.2500, L100.0100 ####[facility] [address] [place], [address] MCH Normal 27.0-32.0 [facility] Comment on above: Result Comment: Canc elled via OM: Order cancelled - Patient discharged Performed By: #### L 500.2500, L100.0100 ####[facility] [address] [place], [address] MCHC Normal 32-36 [facility] Comment on above: Result Comment: Canc elled via OM: Order cancelled - Patient discharged Performed By: #### L 500.2500, L100.0100 ####[facility] [address] [place], [address] MCV Normal 80-94 [facility] Comment on above: Result Comment: Canc elled via OM: Order cancelled - Patient discharged Performed By: #### L 500.2500, L100.0100 ####[facility] [address] [place], [address] NEUT% Normal 47-70 [facility] Comment on above: Result Comment: Canc elled via OM: Order cancelled - Patient discharged Performed By: #### L 500.2500, L100.0100 ####[facility] [address] [place], [address] PLT Normal 150-450 [facility] Comment on above: Result Comment: Canc elled via OM: Order cancelled - Patient discharged Performed By: #### L 500.2500, L100.0100 ####[facility] [address] [place], [address] RBC Normal 4.6-6.2 [facility] Comment on above: Result Comment: Canc elled via OM: Order cancelled - Patient discharged Performed By: #### L 500.2500, L100.0100 ####[facility] [address] [place], [address] RDW CV Normal 11.6-14.6 [facility] Comment on above: Result Comment: Canc elled via OM: Order cancelled - Patient discharged Performed By: #### L 500.2500, L100.0100 ####[facility] [address] [place], [address] RDW SD Normal 35.1-43.9 [facility] Comment on above: Result Comment: Canc elled via OM: Order cancelled - Patient discharged Performed By: #### L 500.2500, L100.0100 ####[facility] [address] [place], [address] WBC Normal 4.4-11.0 [facility] Comment on above: Result Comment: Canc elled via OM: Order cancelled - Patient discharged Performed By: #### L 500.2500, L100.0100 ####[facility] [address] [place], [address] Basic Metabolic Profile (BMP )on 02-01-2024 BUN Normal 7-18 [facility] Comment on above: Result Comment: Canc elled via OM: Order cancelled - Patient discharged Performed By: #### L 500.2500, L100.0100 ####[facility] [address] [place], [address] BUN/CRE Normal 10-20 [facility] Comment on above: Result Comment: Canc elled via OM: Order cancelled - Patient discharged Performed By: #### L 500.2500, L100.0100 ####[facility] [address] [place], [address] CA,Total Normal 8.5-10.1 [facility] Comment on above: Result Comment: Canc elled via OM: Order cancelled - Patient discharged Performed By: #### L 500.2500, L100.0100 ####[facility] [address] [place], [address] CL Normal 98-107 [facility] Comment on above: Result Comment: Canc elled via OM: Order cancelled - Patient discharged Performed By: #### L 500.2500, L100.0100 ####[facility] [address] [place], [address] CO2 Normal 21.0-32.0 [facility] Comment on above: Result Comment: Canc elled via OM: Order cancelled - Patient discharged Performed By: #### L 500.2500, L100.0100 ####[facility] [address] [place], [address] CREAT,SERUM Normal 0.70-1.30 [facility] Comment on above: Result Comment: Canc elled via OM: Order cancelled - Patient discharged Performed By: #### L 500.2500, L100.0100 ####[facility] [address] [place], [address] EST GFR Normal >60 [facility] Comment on above: Result Comment: Canc elled via OM: Order cancelled - Patient discharged Performed By: #### L 500.2500, L100.0100 ####[facility] [address] [place], [address] EST GFR - AA Normal >60 [facility] Comment on above: Result Comment: Canc elled via OM: Order cancelled - Patient discharged Performed By: #### L 500.2500, L100.0100 ####[facility] [address] [place], [address] GAP Normal 5-15 [facility] Comment on above: Result Comment: Canc elled via OM: Order cancelled - Patient discharged Performed By: #### L 500.2500, L100.0100 ####[facility] [address] [place], [address] GLU Normal 74-106 [facility] Comment on above: Result Comment: Canc elled via OM: Order cancelled - Patient discharged Performed By: #### L 500.2500, L100.0100 ####[facility] [address] [place], [address] Potassium Normal 3.5-5.1 [facility] Comment on above: Result Comment: Canc elled via OM: Order cancelled - Patient discharged Performed By: #### L 500.2500, L100.0100 ####[facility] [address] [place], [address] Basic Metabolic Profile (BMP) Normal 136-145 [facility] Comment on above: Result Comment: Canc elled via OM: Order cancelled - Patient discharged Performed By: #### L 500.2500, L100.0100 ####[facility] [address] [place], [address] CBC W/Diff, Automatedon 11-0 Absolute Neut Normal 2.0-7.7 [facility] Comment on above: Result Comment: Canc elled via OM: Order cancelled - Patient discharged Performed By: #### L 500.2500, L100.0100 ####[facility] [address] [place], [address] HCT Normal 40-54 [facility] Comment on above: Result Comment: Canc elled via OM: Order cancelled - Patient discharged Performed By: #### L 500.2500, L100.0100 ####[facility] [address] [place], [address] HGB Normal 13.0-16.5 [facility] Comment on above: Result Comment: Canc elled via OM: Order cancelled - Patient discharged Performed By: #### L 500.2500, L100.0100 ####[facility] [address] [place], [address] MCH Normal 27.0-32.0 [facility] Comment on above: Result Comment: Canc elled via OM: Order cancelled - Patient discharged Performed By: #### L 500.2500, L100.0100 ####[facility] [address] [place], [address] MCHC Normal 32-36 [facility] Comment on above: Result Comment: Canc elled via OM: Order cancelled - Patient discharged Performed By: #### L 500.2500, L100.0100 ####[facility] [address] [place], [address] MCV Normal 80-94 [facility] Comment on above: Result Comment: Canc elled via OM: Order cancelled - Patient discharged Performed By: #### L 500.2500, L100.0100 ####[facility] [address] [place], [address] NEUT% Normal 47-70 [facility] Comment on above: Result Comment: Canc elled via OM: Order cancelled - Patient discharged Performed By: #### L 500.2500, L100.0100 ####[facility] [address] [place], [address] PLT Normal 150-450 [facility] Comment on above: Result Comment: Canc elled via OM: Order cancelled - Patient discharged Performed By: #### L 500.2500, L100.0100 ####[facility] [address] [place], [address] RBC Normal 4.6-6.2 [facility] Comment on above: Result Comment: Canc elled via OM: Order cancelled - Patient discharged Performed By: #### L 500.2500, L100.0100 ####[facility] [address] [place], [address] RDW CV Normal 11.6-14.6 [facility] Comment on above: Result Comment: Canc elled via OM: Order cancelled - Patient discharged Performed By: #### L 500.2500, L100.0100 ####[facility] [address] [place], [address] RDW SD Normal 35.1-43.9 [facility] Comment on above: Result Comment: Canc elled via OM: Order cancelled - Patient discharged Performed By: #### L 500.2500, L100.0100 ####[facility] [address] [place], [address] WBC Normal 4.4-11.0 [facility] Comment on above: Result Comment: Canc elled via OM: Order cancelled - Patient discharged Performed By: #### L 500.2500, L100.0100 ####[facility] [address] [place], [address] Basic Metabolic Profile (BMP )on 01-31-2024 BUN/CRE 6.8 RATIO Low 10-20 [facility] Comment on above: Performed By: #### L 100.0100, L500.2500 ####[facility] [address] [place], [address] CA,Total 9.4 mg/dL Normal 8.5-10.1 [facility] Comment on above: Performed By: #### L 100.0100, L500.2500 ####[facility] [address] [place], [address] Chloride [Moles/Vol] 110 mmol/L High 98-107 [facility] Comment on above: Performed By: #### L 100.0100, L500.2500 ####[facility] [address] [place], [address] CO2 [Moles/Vol] 25.0 mmol/L Normal 21.0-32.0 [facility] Comment on above: Performed By: #### L 100.0100, L500.2500 ####[facility] [address] [place], [address] Creatinine [Mass/Vol] 4.69 mg/dL High 0.70-1.30 [facility] Comment on above: Result Comment: The validity of the calculated GFR GFRAA in patients over70 years has not been determined. Clinical correlation isessential. Performed By: #### L 100.0100, L500.2500 ####[facility] [address] [place], [address] ECRCL 22.08 ml/min Normal [facility] Comment on above: Performed By: #### L 100.0100, L500.2500 ####[facility] [address] [place], [address] EST GFR - AA 18 mL/min Low >60 [facility] Comment on above: Result Comment: Afri can Swazi GFR Calc Performed By: #### L 100.0100, L500.2500 ####[facility] [address] [place], [address] GAP 4 Low 5-15 [facility] Comment on above: Performed By: #### L 100.0100, L500.2500 ####[facility] [address] [place], [address] GFR/1.73 sq M.predicted among non-blacks MDRD (S/P/Bld) [Vol rate/Area] 15 mL/min/{1.73_m2} Low >60 [facility] Comment on above: Result Comment: Non- GFR Calc Performed By: #### L 100.0100, L500.2500 ####[facility] [address] [place], [address] Glucose [Mass/Vol] 143 mg/dL High 74-106 [facility] Comment on above: Result Comment: Fast ing Glucose result greater than or equal to 126 mg/dLsuggests DIABETES MELLITUS per A.D.A. criteria. Performed By: #### L 100.0100, L500.2500 ####[facility] [address] [place], [address] Potassium [Moles/Vol] 3.9 mmol/L Normal 3.5-5.1 [facility] Comment on above: Performed By: #### L 100.0100, L500.2500 ####[facility] [address] [place], [address] Sodium [Moles/Vol] 139 mmol/L Normal 136-145 [facility] Comment on above: Performed By: #### L 100.0100, L500.2500 ####[facility] [address] [place], [address] Urea nitrogen [Mass/Vol] 32 mg/dL High 7-18 [facility] Comment on above: Performed By: #### L 100.0100, L500.2500 ####[facility] [address] [place], [address] CBC W/Diff, Automatedon 11-0 2-4 Absolute Lymph 1.39 X10 3/uL Normal 0.83-4.51 [facility] Comment on above: Performed By: #### L 100.0100, L500.2500 ####[facility] [address] [place], [address] Absolute Neut 5.3 X10 3/uL Normal 2.0-7.7 [facility] Comment on above: Performed By: #### L 100.0100, L500.2500 ####[facility] [address] [place], [address] Basophils/100 WBC (Bld) 1.0 % Normal 0-1 [facility] Comment on above: Performed By: #### L 100.0100, L500.2500 ####[facility] [address] [place], [address] Eosinophils/100 WBC (Bld) 4.5 % Normal 0-5 [facility] Comment on above: Performed By: #### L 100.0100, L500.2500 ####[facility] [address] [place], [address] Erythrocyte distribution width (RBC) [Ratio] 13.3 % Normal 11.6-14.6 [facility] Comment on above: Performed By: #### L 100.0100, L500.2500 ####[facility] [address] [place], [address] Hematocrit (Bld) [Volume fraction] 27.9 % Low 40-54 [facility] Comment on above: Performed By: #### L 100.0100, L500.2500 ####[facility] [address] [place], [address] Hemoglobin (Bld) [Mass/Vol] 8.9 g/dL Low 13.0-16. 5 [facility] Comment on above: Performed By: #### L 100.0100, L500.2500 ####[facility] [address] [place], [address] IG% 1.100 High 0.0-0.9 [facility] Comment on above: Result Comment: IG% - Immature Granulocytes (promyelocytes, myelocytes andmetamyelocytes) > 1% indicates that a LEFT SHIFT is Present. Performed By: #### L 100.0100, L500.2500 ####[facility] [address] [place], [address] Lymphocytes/100 WBC (Bld) 17.0 % Low 19-41 [facility] Comment on above: Performed By: #### L 100.0100, L500.2500 ####[facility] [address] [place], [address] MCH (RBC) [Entitic mass] 27.1 pg Normal 27.0-32.0 [facility] Comment on above: Performed By: #### L 100.0100, L500.2500 ####[facility] [address] [place], [address] MCHC (RBC) [Mass/Vol] 31.9 g/dL Low 32-36 [facility] Comment on above: Performed By: #### L 100.0100, L500.2500 ####[facility] [address] [place], [address] MCV (RBC) [Entitic vol] 84.8 fL Normal 80-94 [facility] Comment on above: Performed By: #### L 100.0100, L500.2500 ####[facility] [address] [place], [address] Monocytes/100 WBC (Bld) 12.4 % High 0-10 [facility] Comment on above: Performed By: #### L 100.0100, L500.2500 ####[facility] [address] [place], [address] Neutrophils/100 WBC (Bld) 64.0 % Normal 47-70 [facility] Comment on above: Performed By: #### L 100.0100, L500.2500 ####[facility] [address] [place], [address] Nucleated RBC (Bld) [#/Vol] 0 10*3/uL Normal 0-5 [facility] Comment on above: Performed By: #### L 100.0100, L500.2500 ####[facility] [address] [place], [address] Platelet mean volume (Bld) [Entitic vol] 8.9 fL Normal 6.2-12.0 [facility] Comment on above: Performed By: #### L 100.0100, L500.2500 ####[facility] [address] [place], [address] Platelets (Bld) [#/Vol] 388 10*3/uL Normal 150-450 [facility] Comment on above: Performed By: #### L 100.0100, L500.2500 ####[facility] [address] [place], [address] RBC (Bld) [#/Vol] 3.29 10*6/uL Low 4.6-6.2 [facility] Comment on above: Performed By: #### L 100.0100, L500.2500 ####[facility] [address] [place], [address] RDW SD 41.1 fl Normal 35.1-43.9 [facility] Comment on above: Performed By: #### L 100.0100, L500.2500 ####[facility] [address] [place], [address] WBC (Bld) [#/Vol] 8.2 10*3/uL Normal 4.4-11.0 [facility] Comment on above: Performed By: #### L 100.0100, L500.2500 ####[facility] [address] [place], [address] CDIFF (PCR)on 01-31-2024 CDIFF Normal [facility] Comment on above: Performed By: #### M 100.6796 ####[facility] [address] [place], [address] Culture, Blood (WB)on 2023 CUB Normal [facility] Comment on above: Performed By: #### M 100.636, M200.1000 ####[facility] [address] [place], [address] Discharge Instructionon Discharge Instruction Normal [facility] Stool Occult Blood iFOBon STOB Positive Normal [facility] Comment on above: Performed By: #### M 100.7900 ####[facility] [address] [place], [address] 12 Lead EKGon 01-30-2024 12 Lead EKG Normal [facility] Basic Metabolic Profile (BMP )on 01-30-2024 BUN/CRE 7.2 RATIO Low 10-20 [facility] Comment on above: Performed By: #### L 500.2500, L100.0100 ####[facility] [address] [place], [address] CA,Total 9.2 mg/dL Normal 8.5-10.1 [facility] Comment on above: Performed By: #### L 500.2500, L100.0100 ####[facility] [address] [place], [address] Chloride [Moles/Vol] 108 mmol/L High 98-107 [facility] Comment on above: Performed By: #### L 500.2500, L100.0100 ####[facility] [address] [place], [address] CO2 [Moles/Vol] 25.0 mmol/L Normal 21.0-32.0 [facility] Comment on above: Performed By: #### L 500.2500, L100.0100 ####[facility] [address] [place], [address] Creatinine [Mass/Vol] 5.15 mg/dL High 0.70-1.30 [facility] Comment on above: Result Comment: The validity of the calculated GFR GFRAA in patients over70 years has not been determined. Clinical correlation isessential. Performed By: #### L 500.2500, L100.0100 ####[facility] [address] [place], [address] ECRCL 21.83 ml/min Normal [facility] Comment on above: Performed By: #### L 500.2500, L100.0100 ####[facility] [address] [place], [address] EST GFR - AA 16 mL/min Low >60 [facility] Comment on above: Result Comment: Afri can Swazi GFR Calc Performed By: #### L 500.2500, L100.0100 ####[facility] [address] [place], [address] GAP 6 Normal 5-15 [facility] Comment on above: Performed By: #### L 500.2500, L100.0100 ####[facility] [address] [place], [address] GFR/1.73 sq M.predicted among non-blacks MDRD (S/P/Bld) [Vol rate/Area] 13 mL/min/{1.73_m2} Low >60 [facility] Comment on above: Result Comment: Non- GFR Calc Performed By: #### L 500.2500, L100.0100 ####[facility] [address] [place], [address] Glucose [Mass/Vol] 147 mg/dL High 74-106 [facility] Comment on above: Result Comment: Fast ing Glucose result greater than or equal to 126 mg/dLsuggests DIABETES MELLITUS per A.D.A. criteria. Performed By: #### L 500.2500, L100.0100 ####[facility] [address] [place], [address] Potassium [Moles/Vol] 3.7 mmol/L Normal 3.5-5.1 [facility] Comment on above: Performed By: #### L 500.2500, L100.0100 ####[facility] [address] [place], [address] Sodium [Moles/Vol] 139 mmol/L Normal 136-145 [facility] Comment on above: Performed By: #### L 500.2500, L100.0100 ####[facility] [address] [place], [address] Urea nitrogen [Mass/Vol] 37 mg/dL High 7-18 [facility] Comment on above: Performed By: #### L 500.2500, L100.0100 ####[facility] [address] [place], [address] Bedside Glucoseon 01-30-2024 FINGERSTICK GLU 107 mg/dL High 74-106 [facility] Comment on above: Result Comment: EDUARDO GEMENT OF PATIENT CARE PER NURSING PROTOCOL Performed By: #### L 501.080 ####[facility] [address] [place], [address] FINGERSTICK GLU 117 mg/dL High 74-106 [facility] Comment on above: Result Comment: EDUARDO GEMENT OF PATIENT CARE PER NURSING PROTOCOL Performed By: #### L 501.080 ####[facility] [address] [place], [address] CBC W/Diff, Automatedon 11-0 Absolute Lymph 1.21 X10 3/uL Normal 0.83-4.51 [facility] Comment on above: Performed By: #### L 500.2500, L100.0100 ####[facility] [address] [place], [address] Absolute Neut 4.2 X10 3/uL Normal 2.0-7.7 [facility] Comment on above: Performed By: #### L 500.2500, L100.0100 ####[facility] [address] [place], [address] Basophils/100 WBC (Bld) 1.0 % Normal 0-1 [facility] Comment on above: Performed By: #### L 500.2500, L100.0100 ####[facility] [address] [place], [address] Eosinophils/100 WBC (Bld) 5.2 % High 0-5 [facility] Comment on above: Performed By: #### L 500.2500, L100.0100 ####[facility] [address] [place], [address] Erythrocyte distribution width (RBC) [Ratio] 13.2 % Normal 11.6-14.6 [facility] Comment on above: Performed By: #### L 500.2500, L100.0100 ####[facility] [address] [place], [address] Hematocrit (Bld) [Volume fraction] 26.8 % Low 40-54 [facility] Comment on above: Performed By: #### L 500.2500, L100.0100 ####[facility] [address] [place], [address] Hemoglobin (Bld) [Mass/Vol] 8.3 g/dL Low 13.0-16. 5 [facility] Comment on above: Performed By: #### L 500.2500, L100.0100 ####[facility] [address] [place], [address] IG% 0.700 Normal 0.0-0.9 [facility] Comment on above: Result Comment: IG% - Immature Granulocytes (promyelocytes, myelocytes andmetamyelocytes) > 1% indicates that a LEFT SHIFT is Present. Performed By: #### L 500.2500, L100.0100 ####[facility] [address] [place], [address] Lymphocytes/100 WBC (Bld) 17.8 % Low 19-41 [facility] Comment on above: Performed By: #### L 500.2500, L100.0100 ####[facility] [address] [place], [address] MCH (RBC) [Entitic mass] 26.3 pg Low 27.0-32.0 [facility] Comment on above: Performed By: #### L 500.2500, L100.0100 ####[facility] [address] [place], [address] MCHC (RBC) [Mass/Vol] 31.0 g/dL Low 32-36 [facility] Comment on above: Performed By: #### L 500.2500, L100.0100 ####[facility] [address] [place], [address] MCV (RBC) [Entitic vol] 84.8 fL Normal 80-94 [facility] Comment on above: Performed By: #### L 500.2500, L100.0100 ####[facility] [address] [place], [address] Monocytes/100 WBC (Bld) 12.8 % High 0-10 [facility] Comment on above: Performed By: #### L 500.2500, L100.0100 ####[facility] [address] [place], [address] Neutrophils/100 WBC (Bld) 62.5 % Normal 47-70 [facility] Comment on above: Performed By: #### L 500.2500, L100.0100 ####[facility] [address] [place], [address] Nucleated RBC (Bld) [#/Vol] 0 10*3/uL Normal 0-5 [facility] Comment on above: Performed By: #### L 500.2500, L100.0100 ####[facility] [address] [place], [address] Platelet mean volume (Bld) [Entitic vol] 9.0 fL Normal 6.2-12.0 [facility] Comment on above: Performed By: #### L 500.2500, L100.0100 ####[facility] [address] [place], [address] Platelets (Bld) [#/Vol] 374 10*3/uL Normal 150-450 [facility] Comment on above: Performed By: #### L 500.2500, L100.0100 ####[facility] [address] [place], [address] RBC (Bld) [#/Vol] 3.16 10*6/uL Low 4.6-6.2 [facility] Comment on above: Performed By: #### L 500.2500, L100.0100 ####[facility] [address] [place], [address] RDW SD 41.1 fl Normal 35.1-43.9 [facility] Comment on above: Performed By: #### L 500.2500, L100.0100 ####[facility] [address] [place], [address] WBC (Bld) [#/Vol] 6.8 10*3/uL Normal 4.4-11.0 [facility] Comment on above: Performed By: #### L 500.2500, L100.0100 ####[facility] [address] [place], [address] CXR for Line Placementon CXR for Line Placement Normal [facility] MR/POSTOP.ANEon 01-30-2024 MR/POSTOP.ANE Normal [facility] MR/[id number] 01-30-2024 MR/POSTOPAN2 Normal [facility] Operative Reporton Operative Report Normal [facility] Partial Thromboplast Timeon 01-30-2024 aPTT Coag (Bld) [Time] 28.8 s Normal 24.1-36.2 [facility] Comment on above: Order Comment: Comme nts: Pre-Op Orders Performed By: #### L 300.4310 ####[facility] [address] [place], [address] Basic Metabolic Profile (BMP )on 01-29-2024 BUN/CRE 7.6 RATIO Low 10-20 [facility] Comment on above: Performed By: #### L 100.0100, L500.2500 ####[facility] [address] [place], [address] CA,Total 9.3 mg/dL Normal 8.5-10.1 [facility] Comment on above: Performed By: #### L 100.0100, L500.2500 ####[facility] [address] [place], [address] Chloride [Moles/Vol] 105 mmol/L Normal 98-107 [facility] Comment on above: Performed By: #### L 100.0100, L500.2500 ####[facility] [address] [place], [address] CO2 [Moles/Vol] 26.0 mmol/L Normal 21.0-32.0 [facility] Comment on above: Performed By: #### L 100.0100, L500.2500 ####[facility] [address] [place], [address] Creatinine [Mass/Vol] 4.73 mg/dL High 0.70-1.30 [facility] Comment on above: Result Comment: The validity of the calculated GFR GFRAA in patients over70 years has not been determined. Clinical correlation isessential. Performed By: #### L 100.0100, L500.2500 ####[facility] [address] [place], [address] ECRCL 23.81 ml/min Normal [facility] Comment on above: Performed By: #### L 100.0100, L500.2500 ####[facility] [address] [place], [address] EST GFR - AA 18 mL/min Low >60 [facility] Comment on above: Result Comment: Afri can Swazi GFR Calc Performed By: #### L 100.0100, L500.2500 ####[facility] [address] [place], [address] GAP 6 Normal 5-15 [facility] Comment on above: Performed By: #### L 100.0100, L500.2500 ####[facility] [address] [place], [address] GFR/1.73 sq M.predicted among non-blacks MDRD (S/P/Bld) [Vol rate/Area] 15 mL/min/{1.73_m2} Low >60 [facility] Comment on above: Result Comment: Non- GFR Calc Performed By: #### L 100.0100, L500.2500 ####[facility] [address] [place], [address] Glucose [Mass/Vol] 154 mg/dL High 74-106 [facility] Comment on above: Result Comment: Fast ing Glucose result greater than or equal to 126 mg/dLsuggests DIABETES MELLITUS per A.D.A. criteria. Performed By: #### L 100.0100, L500.2500 ####[facility] [address] [place], [address] Potassium [Moles/Vol] 3.8 mmol/L Normal 3.5-5.1 [facility] Comment on above: Performed By: #### L 100.0100, L500.2500 ####[facility] [address] [place], [address] Sodium [Moles/Vol] 137 mmol/L Normal 136-145 [facility] Comment on above: Performed By: #### L 100.0100, L500.2500 ####[facility] [address] [place], [address] Urea nitrogen [Mass/Vol] 36 mg/dL High 7-18 [facility] Comment on above: Performed By: #### L 100.0100, L500.2500 ####[facility] [address] [place], [address] CBC W/Diff, Automatedon 10-3 -2023 Absolute Lymph 1.16 X10 3/uL Normal 0.83-4.51 [facility] Comment on above: Performed By: #### L 100.0100, L500.2500 ####[facility] [address] [place], [address] Absolute Neut 4.9 X10 3/uL Normal 2.0-7.7 [facility] Comment on above: Performed By: #### L 100.0100, L500.2500 ####[facility] [address] [place], [address] Basophils/100 WBC (Bld) 1.2 % High 0-1 [facility] Comment on above: Performed By: #### L 100.0100, L500.2500 ####[facility] [address] [place], [address] Eosinophils/100 WBC (Bld) 4.7 % Normal 0-5 [facility] Comment on above: Performed By: #### L 100.0100, L500.2500 ####[facility] [address] [place], [address] Erythrocyte distribution width (RBC) [Ratio] 13.1 % Normal 11.6-14.6 [facility] Comment on above: Performed By: #### L 100.0100, L500.2500 ####[facility] [address] [place], [address] Hematocrit (Bld) [Volume fraction] 24.5 % Low 40-54 [facility] Comment on above: Performed By: #### L 100.0100, L500.2500 ####[facility] [address] [place], [address] Hemoglobin (Bld) [Mass/Vol] 8.1 g/dL Low 13.0-16. 5 [facility] Comment on above: Performed By: #### L 100.0100, L500.2500 ####[facility] [address] [place], [address] IG% 0.500 Normal 0.0-0.9 [facility] Comment on above: Result Comment: IG% - Immature Granulocytes (promyelocytes, myelocytes andmetamyelocytes) > 1% indicates that a LEFT SHIFT is Present. Performed By: #### L 100.0100, L500.2500 ####[facility] [address] [place], [address] Lymphocytes/100 WBC (Bld) 15.6 % Low 19-41 [facility] Comment on above: Performed By: #### L 100.0100, L500.2500 ####[facility] [address] [place], [address] MCH (RBC) [Entitic mass] 27.5 pg Normal 27.0-32.0 [facility] Comment on above: Performed By: #### L 100.0100, L500.2500 ####[facility] [address] [place], [address] MCHC (RBC) [Mass/Vol] 33.1 g/dL Normal 32-36 [facility] Comment on above: Performed By: #### L 100.0100, L500.2500 ####[facility] [address] [place], [address] MCV (RBC) [Entitic vol] 83.1 fL Normal 80-94 [facility] Comment on above: Performed By: #### L 100.0100, L500.2500 ####[facility] [address] [place], [address] Monocytes/100 WBC (Bld) 12.5 % High 0-10 [facility] Comment on above: Performed By: #### L 100.0100, L500.2500 ####[facility] [address] [place], [address] Neutrophils/100 WBC (Bld) 65.5 % Normal 47-70 [facility] Comment on above: Performed By: #### L 100.0100, L500.2500 ####[facility] [address] [place], [address] Nucleated RBC (Bld) [#/Vol] 0 10*3/uL Normal 0-5 [facility] Comment on above: Performed By: #### L 100.0100, L500.2500 ####[facility] [address] [place], [address] Platelet mean volume (Bld) [Entitic vol] 9.6 fL Normal 6.2-12.0 [facility] Comment on above: Performed By: #### L 100.0100, L500.2500 ####[facility] [address] [place], [address] Platelets (Bld) [#/Vol] 327 10*3/uL Normal 150-450 [facility] Comment on above: Performed By: #### L 100.0100, L500.2500 ####[facility] [address] [place], [address] RBC (Bld) [#/Vol] 2.95 10*6/uL Low 4.6-6.2 [facility] Comment on above: Performed By: #### L 100.0100, L500.2500 ####[facility] [address] [place], [address] RDW SD 39.6 fl Normal 35.1-43.9 [facility] Comment on above: Performed By: #### L 100.0100, L500.2500 ####[facility] [address] [place], [address] WBC (Bld) [#/Vol] 7.4 10*3/uL Normal 4.4-11.0 [facility] Comment on above: Performed By: #### L 100.0100, L500.2500 ####[facility] [address] [place], [address] Consultation - Surgicalon Consultation - Surgical Normal [facility] Basic Metabolic Profile (BMP )on 01-28-2024 BUN/CRE 8.5 RATIO Low 10-20 [facility] Comment on above: Performed By: #### L 100.0100, L500.2500 ####[facility] [address] [place], [address] CA,Total 9.1 mg/dL Normal 8.5-10.1 [facility] Comment on above: Performed By: #### L 100.0100, L500.2500 ####[facility] [address] [place], [address] Chloride [Moles/Vol] 105 mmol/L Normal 98-107 [facility] Comment on above: Performed By: #### L 100.0100, L500.2500 ####[facility] [address] [place], [address] CO2 [Moles/Vol] 24.0 mmol/L Normal 21.0-32.0 [facility] Comment on above: Performed By: #### L 100.0100, L500.2500 ####[facility] [address] [place], [address] Creatinine [Mass/Vol] 6.32 mg/dL High 0.70-1.30 [facility] Comment on above: Result Comment: The validity of the calculated GFR GFRAA in patients over70 years has not been determined. Clinical correlation isessential. Performed By: #### L 100.0100, L500.2500 ####[facility] [address] [place], [address] ECRCL 17.97 ml/min Normal [facility] Comment on above: Performed By: #### L 100.0100, L500.2500 ####[facility] [address] [place], [address] EST GFR - AA 13 mL/min Low >60 [facility] Comment on above: Result Comment: Afri can Swazi GFR Calc Performed By: #### L 100.0100, L500.2500 ####[facility] [address] [place], [address] GAP 7 Normal 5-15 [facility] Comment on above: Performed By: #### L 100.0100, L500.2500 ####[facility] [address] [place], [address] GFR/1.73 sq M.predicted among non-blacks MDRD (S/P/Bld) [Vol rate/Area] 10 mL/min/{1.73_m2} Low >60 [facility] Comment on above: Result Comment: Non- GFR Calc Performed By: #### L 100.0100, L500.2500 ####[facility] [address] [place], [address] Glucose [Mass/Vol] 264 mg/dL High 74-106 [facility] Comment on above: Result Comment: Gluc ose result greater than or equal to 200 mg/dLsuggests DIABETES MELLITUS per A.D.A. criteria. Performed By: #### L 100.0100, L500.2500 ####[facility] [address] [place], [address] Potassium [Moles/Vol] 3.7 mmol/L Normal 3.5-5.1 [facility] Comment on above: Performed By: #### L 100.0100, L500.2500 ####[facility] [address] [place], [address] Sodium [Moles/Vol] 136 mmol/L Normal 136-145 [facility] Comment on above: Performed By: #### L 100.0100, L500.2500 ####[facility] [address] [place], [address] Urea nitrogen [Mass/Vol] 54 mg/dL High 7-18 [facility] Comment on above: Performed By: #### L 100.0100, L500.2500 ####[facility] [address] [place], [address] CBC W/Diff, Automatedon 10-3 0-2024 Absolute Lymph 0.84 X10 3/uL Normal 0.83-4.51 [facility] Comment on above: Performed By: #### L 100.0100, L500.2500 ####[facility] [address] [place], [address] Absolute Neut 7.0 X10 3/uL Normal 2.0-7.7 [facility] Comment on above: Performed By: #### L 100.0100, L500.2500 ####[facility] [address] [place], [address] Basophils/100 WBC (Bld) 0.5 % Normal 0-1 [facility] Comment on above: Performed By: #### L 100.0100, L500.2500 ####[facility] [address] [place], [address] Eosinophils/100 WBC (Bld) 4.3 % Normal 0-5 [facility] Comment on above: Performed By: #### L 100.0100, L500.2500 ####[facility] [address] [place], [address] Erythrocyte distribution width (RBC) [Ratio] 13.4 % Normal 11.6-14.6 [facility] Comment on above: Performed By: #### L 100.0100, L500.2500 ####[facility] [address] [place], [address] Hematocrit (Bld) [Volume fraction] 24.0 % Low 40-54 [facility] Comment on above: Performed By: #### L 100.0100, L500.2500 ####[facility] [address] [place], [address] Hemoglobin (Bld) [Mass/Vol] 7.7 g/dL Low 13.0-16. 5 [facility] Comment on above: Performed By: #### L 100.0100, L500.2500 ####[facility] [address] [place], [address] IG% 0.600 Normal 0.0-0.9 [facility] Comment on above: Result Comment: IG% - Immature Granulocytes (promyelocytes, myelocytes andmetamyelocytes) > 1% indicates that a LEFT SHIFT is Present. Performed By: #### L 100.0100, L500.2500 ####[facility] [address] [place], [address] Lymphocytes/100 WBC (Bld) 9.0 % Low 19-41 [facility] Comment on above: Performed By: #### L 100.0100, L500.2500 ####[facility] [address] [place], [address] MCH (RBC) [Entitic mass] 26.9 pg Low 27.0-32.0 [facility] Comment on above: Performed By: #### L 100.0100, L500.2500 ####[facility] [address] [place], [address] MCHC (RBC) [Mass/Vol] 32.1 g/dL Normal 32-36 [facility] Comment on above: Performed By: #### L 100.0100, L500.2500 ####[facility] [address] [place], [address] MCV (RBC) [Entitic vol] 83.9 fL Normal 80-94 [facility] Comment on above: Performed By: #### L 100.0100, L500.2500 ####[facility] [address] [place], [address] Monocytes/100 WBC (Bld) 10.1 % High 0-10 [facility] Comment on above: Performed By: #### L 100.0100, L500.2500 ####[facility] [address] [place], [address] Neutrophils/100 WBC (Bld) 75.5 % High 47-70 [facility] Comment on above: Performed By: #### L 100.0100, L500.2500 ####[facility] [address] [place], [address] Nucleated RBC (Bld) [#/Vol] 0 10*3/uL Normal 0-5 [facility] Comment on above: Performed By: #### L 100.0100, L500.2500 ####[facility] [address] [place], [address] Platelet mean volume (Bld) [Entitic vol] 9.5 fL Normal 6.2-12.0 [facility] Comment on above: Performed By: #### L 100.0100, L500.2500 ####[facility] [address] [place], [address] Platelets (Bld) [#/Vol] 270 10*3/uL Normal 150-450 [facility] Comment on above: Performed By: #### L 100.0100, L500.2500 ####[facility] [address] [place], [address] RBC (Bld) [#/Vol] 2.86 10*6/uL Low 4.6-6.2 [facility] Comment on above: Performed By: #### L 100.0100, L500.2500 ####[facility] [address] [place], [address] RDW SD 41.4 fl Normal 35.1-43.9 [facility] Comment on above: Performed By: #### L 100.0100, L500.2500 ####[facility] [address] [place], [address] WBC (Bld) [#/Vol] 9.3 10*3/uL Normal 4.4-11.0 [facility] Comment on above: Performed By: #### L 100.0100, L500.2500 ####[facility] [address] [place], [address] Consultation - Infectious Dx on 01-28-2024 Consultation - Infectious Dx Normal [facility] Vancomycin, Random Levelon 1 VANCO, RANDOM 19.1 ug/mL High 0.0-15.0 [facility] Comment on above: Result Comment: VANC OMYCIN STANDARD DRUG THERAPY: CRITICAL VALUE IS > 15.0 mg/LVANCOMYCIN HIGH INTENSITY THERAPY: CRITICAL VALUE IS > 20.0 mg/LPLEASE CONTACT PHARMACY SERVICES (#8391) FOR INTERPRETATIONOF RESULTS. THIS RESULT DOES NOT REPRESENT A PEAK OR TROUGHLEVEL FOR THIS DRUG. Performed By: #### L 501.8850 ####[facility] [address] [place], [address] BC GPC IDon 01-27-2024 BC GPC ID Normal [facility] Comment on above: Performed By: #### M 100.636, M200.1000 ####[facility] [address] [place], [address] Basic Metabolic Profile (BMP )on 01-27-2024 BUN/CRE 9.0 RATIO Low 10-20 [facility] Comment on above: Performed By: #### L 100.0100, L500.2500 ####[facility] [address] [place], [address] CA,Total 8.7 mg/dL Normal 8.5-10.1 [facility] Comment on above: Performed By: #### L 100.0100, L500.2500 ####[facility] [address] [place], [address] Chloride [Moles/Vol] 104 mmol/L Normal 98-107 [facility] Comment on above: Performed By: #### L 100.0100, L500.2500 ####[facility] [address] [place], [address] CO2 [Moles/Vol] 26.0 mmol/L Normal 21.0-32.0 [facility] Comment on above: Performed By: #### L 100.0100, L500.2500 ####[facility] [address] [place], [address] Creatinine [Mass/Vol] 5.92 mg/dL High 0.70-1.30 [facility] Comment on above: Result Comment: The validity of the calculated GFR GFRAA in patients over70 years has not been determined. Clinical correlation isessential. Performed By: #### L 100.0100, L500.2500 ####[facility] [address] [place], [address] ECRCL 19.46 ml/min Normal [facility] Comment on above: Performed By: #### L 100.0100, L500.2500 ####[facility] [address] [place], [address] EST GFR - AA 14 mL/min Low >60 [facility] Comment on above: Result Comment: Afri can Swazi GFR Calc Performed By: #### L 100.0100, L500.2500 ####[facility] [address] [place], [address] GAP 7 Normal 5-15 [facility] Comment on above: Performed By: #### L 100.0100, L500.2500 ####[facility] [address] [place], [address] GFR/1.73 sq M.predicted among non-blacks MDRD (S/P/Bld) [Vol rate/Area] 11 mL/min/{1.73_m2} Low >60 [facility] Comment on above: Result Comment: Non- GFR Calc Performed By: #### L 100.0100, L500.2500 ####[facility] [address] [place], [address] Glucose [Mass/Vol] 76 mg/dL Normal 74-106 [facility] Comment on above: Performed By: #### L 100.0100, L500.2500 ####[facility] [address] [place], [address] Potassium [Moles/Vol] 3.4 mmol/L Low 3.5-5.1 [facility] Comment on above: Performed By: #### L 100.0100, L500.2500 ####[facility] [address] [place], [address] Sodium [Moles/Vol] 137 mmol/L Normal 136-145 [facility] Comment on above: Performed By: #### L 100.0100, L500.2500 ####[facility] [address] [place], [address] Urea nitrogen [Mass/Vol] 53 mg/dL High 7-18 [facility] Comment on above: Performed By: #### L 100.0100, L500.2500 ####[facility] [address] [place], [address] CBC W/Diff, Automatedon 10-2 Absolute Lymph 1.03 X10 3/uL Normal 0.83-4.51 [facility] Comment on above: Performed By: #### L 100.0100, L500.2500 ####[facility] [address] [place], [address] Absolute Neut 9.9 X10 3/uL High 2.0-7.7 [facility] Comment on above: Performed By: #### L 100.0100, L500.2500 ####[facility] [address] [place], [address] Basophils/100 WBC (Bld) 0.6 % Normal 0-1 [facility] Comment on above: Performed By: #### L 100.0100, L500.2500 ####[facility] [address] [place], [address] Eosinophils/100 WBC (Bld) 2.8 % Normal 0-5 [facility] Comment on above: Performed By: #### L 100.0100, L500.2500 ####[facility] [address] [place], [address] Erythrocyte distribution width (RBC) [Ratio] 13.5 % Normal 11.6-14.6 [facility] Comment on above: Performed By: #### L 100.0100, L500.2500 ####[facility] [address] [place], [address] Hematocrit (Bld) [Volume fraction] 24.1 % Low 40-54 [facility] Comment on above: Performed By: #### L 100.0100, L500.2500 ####[facility] [address] [place], [address] Hemoglobin (Bld) [Mass/Vol] 7.7 g/dL Low 13.0-16. 5 [facility] Comment on above: Performed By: #### L 100.0100, L500.2500 ####[facility] [address] [place], [address] IG% 0.300 Normal 0.0-0.9 [facility] Comment on above: Result Comment: IG% - Immature Granulocytes (promyelocytes, myelocytes andmetamyelocytes) > 1% indicates that a LEFT SHIFT is Present. Performed By: #### L 100.0100, L500.2500 ####[facility] [address] [place], [address] Lymphocytes/100 WBC (Bld) 8.3 % Low 19-41 [facility] Comment on above: Performed By: #### L 100.0100, L500.2500 ####[facility] [address] [place], [address] MCH (RBC) [Entitic mass] 26.7 pg Low 27.0-32.0 [facility] Comment on above: Performed By: #### L 100.0100, L500.2500 ####[facility] [address] [place], [address] MCHC (RBC) [Mass/Vol] 32.0 g/dL Normal 32-36 [facility] Comment on above: Performed By: #### L 100.0100, L500.2500 ####[facility] [address] [place], [address] MCV (RBC) [Entitic vol] 83.7 fL Normal 80-94 [facility] Comment on above: Performed By: #### L 100.0100, L500.2500 ####[facility] [address] [place], [address] Monocytes/100 WBC (Bld) 8.1 % Normal 0-10 [facility] Comment on above: Performed By: #### L 100.0100, L500.2500 ####[facility] [address] [place], [address] Neutrophils/100 WBC (Bld) 79.9 % High 47-70 [facility] Comment on above: Performed By: #### L 100.0100, L500.2500 ####[facility] [address] [place], [address] Nucleated RBC (Bld) [#/Vol] 0 10*3/uL Normal 0-5 [facility] Comment on above: Performed By: #### L 100.0100, L500.2500 ####[facility] [address] [place], [address] Platelet mean volume (Bld) [Entitic vol] 9.7 fL Normal 6.2-12.0 [facility] Comment on above: Performed By: #### L 100.0100, L500.2500 ####[facility] [address] [place], [address] Platelets (Bld) [#/Vol] 255 10*3/uL Normal 150-450 [facility] Comment on above: Performed By: #### L 100.0100, L500.2500 ####[facility] [address] [place], [address] RBC (Bld) [#/Vol] 2.88 10*6/uL Low 4.6-6.2 [facility] Comment on above: Performed By: #### L 100.0100, L500.2500 ####[facility] [address] [place], [address] RDW SD 40.6 fl Normal 35.1-43.9 [facility] Comment on above: Performed By: #### L 100.0100, L500.2500 ####[facility] [address] [place], [address] WBC (Bld) [#/Vol] 12.3 10*3/uL High 4.4-11.0 [facility] Comment on above: Performed By: #### L 100.0100, L500.2500 ####[facility] [address] [place], [address] MR/PN.GIon 01-27-2024 MR/PN.GI Normal [facility] Urine Cultureon 01-27-2024 URC Culture exhibits no growth. Normal [facility] Comment on above: Performed By: #### M 100.2200 ####[facility] [address] [place], [address] Vancomycin, Random Levelon 1 VANCO, RANDOM 24.6 ug/mL High 0.0-15.0 [facility] Comment on above: Result Comment: VANC OMYCIN STANDARD DRUG THERAPY: CRITICAL VALUE IS > 15.0 mg/LVANCOMYCIN HIGH INTENSITY THERAPY: CRITICAL VALUE IS > 20.0 mg/LPLEASE CONTACT PHARMACY SERVICES (#8247) FOR INTERPRETATIONOF RESULTS. THIS RESULT DOES NOT REPRESENT A PEAK OR TROUGHLEVEL FOR THIS DRUG. Performed By: #### L 501.8850 ####[facility] [address] [place], [address] Vitamin D 1,25-Dihydroxyon 1 VIT D 1,25 DIHY 17.0 pg/mL Abnormal 24.8-81.5 [facility] Comment on above: Result Comment: Perf ormed at: [facility] [address] [place] [address], [place] [id number] Director: Devyn Zabala MD, Phone: [phone] Performed By: #### L 500.2500, L3300.3154, L501.8648, L505.5000 ####[facility] [address] [place], [address] 12 Lead EKGon 01-26-2024 12 Lead EKG Normal [facility] Basic Metabolic Profile (BMP )on 01-26-2024 BUN/CRE 8.6 RATIO Low 10-20 [facility] Comment on above: Performed By: #### L 500.2500, L100.0100 ####[facility] [address] [place], [address] CA,Total 8.2 mg/dL Low 8.5-10.1 [facility] Comment on above: Performed By: #### L 500.2500, L100.0100 ####[facility] [address] [place], [address] Chloride [Moles/Vol] 99 mmol/L Normal 98-107 [facility] Comment on above: Performed By: #### L 500.2500, L100.0100 ####[facility] [address] [place], [address] CO2 [Moles/Vol] 19.0 mmol/L Low 21.0-32.0 [facility] Comment on above: Performed By: #### L 500.2500, L100.0100 ####[facility] [address] [place], [address] Creatinine [Mass/Vol] 7.78 mg/dL Invalid Interpretation Code 0.70-1.30 [facility] Comment on above: Result Comment: Crit ical Result(s) Called at: 04:29:01 01/26/2024 by: NoahBurns. RICHMOND GALAN rn icu. Results read back by same.The validity of the calculated GFR GFRAA in patients over70 years has not been determined. Clinical correlation isessential. Performed By: #### L 500.2500, L100.0100 ####[facility] [address] [place], [address] ECRCL 14.81 ml/min Normal [facility] Comment on above: Performed By: #### L 500.2500, L100.0100 ####[facility] [address] [place], [address] EST GFR - AA 10 mL/min Low >60 [facility] Comment on above: Result Comment: Afri can Swazi GFR Calc Performed By: #### L 500.2500, L100.0100 ####[facility] [address] [place], [address] GAP 13 Normal 5-15 [facility] Comment on above: Performed By: #### L 500.2500, L100.0100 ####[facility] [address] [place], [address] GFR/1.73 sq M.predicted among non-blacks MDRD (S/P/Bld) [Vol rate/Area] 8 mL/min/{1.73_m2} Low >60 [facility] Comment on above: Result Comment: Non- GFR Calc Performed By: #### L 500.2500, L100.0100 ####[facility] [address] [place], [address] Glucose [Mass/Vol] 319 mg/dL High 74-106 [facility] Comment on above: Result Comment: Gluc ose result greater than or equal to 200 mg/dLsuggests DIABETES MELLITUS per A.D.A. criteria. Performed By: #### L 500.2500, L100.0100 ####[facility] [address] [place], [address] Potassium [Moles/Vol] 4.6 mmol/L Normal 3.5-5.1 [facility] Comment on above: Performed By: #### L 500.2500, L100.0100 ####[facility] [address] [place], [address] Sodium [Moles/Vol] 130 mmol/L Low 136-145 [facility] Comment on above: Performed By: #### L 500.2500, L100.0100 ####[facility] [address] [place], [address] Urea nitrogen [Mass/Vol] 67 mg/dL High 7-18 [facility] Comment on above: Performed By: #### L 500.2500, L100.0100 ####[facility] [address] [place], [address] Bedside Glucoseon 01-26-2024 FINGERSTICK GLU 248 mg/dL High 74-106 [facility] Comment on above: Result Comment: EDUARDO GEMENT OF PATIENT CARE PER NURSING PROTOCOL Performed By: #### L 501.080 ####[facility] [address] [place], [address] FINGERSTICK GLU 389 mg/dL High 74-106 [facility] Comment on above: Result Comment: EDUARDO GEMENT OF PATIENT CARE PER NURSING PROTOCOL Performed By: #### L 501.080 ####[facility] [address] [place], [address] FINGERSTICK GLU 312 mg/dL High 74-106 [facility] Comment on above: Result Comment: EDUARDO GEMENT OF PATIENT CARE PER NURSING PROTOCOL Performed By: #### L 501.080 ####[facility] [address] [place], [address] CBC W/Diff, Automatedon 10-2 Absolute Lymph 0.68 X10 3/uL Low 0.83-4.51 [facility] Comment on above: Performed By: #### L 500.2500, L100.0100 ####[facility] [address] [place], [address] Absolute Neut 14.8 X10 3/uL High 2.0-7.7 [facility] Comment on above: Performed By: #### L 500.2500, L100.0100 ####[facility] [address] [place], [address] Basophils/100 WBC (Bld) 0.6 % Normal 0-1 [facility] Comment on above: Performed By: #### L 500.2500, L100.0100 ####[facility] [address] [place], [address] Eosinophils/100 WBC (Bld) 0.5 % Normal 0-5 [facility] Comment on above: Performed By: #### L 500.2500, L100.0100 ####[facility] [address] [place], [address] Erythrocyte distribution width (RBC) [Ratio] 13.2 % Normal 11.6-14.6 [facility] Comment on above: Performed By: #### L 500.2500, L100.0100 ####[facility] [address] [place], [address] Hematocrit (Bld) [Volume fraction] 23.1 % Low 40-54 [facility] Comment on above: Performed By: #### L 500.2500, L100.0100 ####[facility] [address] [place], [address] Hemoglobin (Bld) [Mass/Vol] 7.4 g/dL Low 13.0-16. 5 [facility] Comment on above: Performed By: #### L 500.2500, L100.0100 ####[facility] [address] [place], [address] IG% 0.800 Normal 0.0-0.9 [facility] Comment on above: Result Comment: IG% - Immature Granulocytes (promyelocytes, myelocytes andmetamyelocytes) > 1% indicates that a LEFT SHIFT is Present. Performed By: #### L 500.2500, L100.0100 ####[facility] [address] [place], [address] Lymphocytes/100 WBC (Bld) 4.1 % Low 19-41 [facility] Comment on above: Performed By: #### L 500.2500, L100.0100 ####[facility] [address] [place], [address] MCH (RBC) [Entitic mass] 27.0 pg Normal 27.0-32.0 [facility] Comment on above: Performed By: #### L 500.2500, L100.0100 ####[facility] [address] [place], [address] MCHC (RBC) [Mass/Vol] 32.0 g/dL Normal 32-36 [facility] Comment on above: Performed By: #### L 500.2500, L100.0100 ####[facility] [address] [place], [address] MCV (RBC) [Entitic vol] 84.3 fL Normal 80-94 [facility] Comment on above: Performed By: #### L 500.2500, L100.0100 ####[facility] [address] [place], [address] Monocytes/100 WBC (Bld) 5.8 % Normal 0-10 [facility] Comment on above: Performed By: #### L 500.2500, L100.0100 ####[facility] [address] [place], [address] Neutrophils/100 WBC (Bld) 88.2 % High 47-70 [facility] Comment on above: Performed By: #### L 500.2500, L100.0100 ####[facility] [address] [place], [address] Nucleated RBC (Bld) [#/Vol] 0 10*3/uL Normal 0-5 [facility] Comment on above: Performed By: #### L 500.2500, L100.0100 ####[facility] [address] [place], [address] Platelet mean volume (Bld) [Entitic vol] 9.7 fL Normal 6.2-12.0 [facility] Comment on above: Performed By: #### L 500.2500, L100.0100 ####[facility] [address] [place], [address] Platelets (Bld) [#/Vol] 223 10*3/uL Normal 150-450 [facility] Comment on above: Performed By: #### L 500.2500, L100.0100 ####[facility] [address] [place], [address] RBC (Bld) [#/Vol] 2.74 10*6/uL Low 4.6-6.2 [facility] Comment on above: Performed By: #### L 500.2500, L100.0100 ####[facility] [address] [place], [address] RDW SD 40.6 fl Normal 35.1-43.9 [facility] Comment on above: Performed By: #### L 500.2500, L100.0100 ####[facility] [address] [place], [address] WBC (Bld) [#/Vol] 16.7 10*3/uL High 4.4-11.0 [facility] Comment on above: Performed By: #### L 500.2500, L100.0100 ####[facility] [address] [place], [address] MR/CON.PCM.GIon 01-26-2024 MR/CON.PCM.GI Normal [facility] Vitamin B12on 01-26-2024 Cobalamin (Vitamin B12) [Mass/Vol] 794 pg/mL Normal 211-911 [facility] Comment on above: Performed By: #### L 506.0250, L503.6030, L503.6550, L503.0105 ####[facility] [address] [place], [address] 12 Lead EKGon 01-25-2024 12 Lead EKG Normal [facility] BRCon 01-25-2024 RC Normal [facility] Comment on above: Result Comment: [id number] BP RC TRANSFUSED 01/26/24 0849 Performed By: #### B RC, BTS ####[facility] [address] [place], [address] Basic Metabolic Profile (BMP )on 01-25-2024 BUN/CRE 8.8 RATIO Low 01-17 [facility] Comment on above: Performed By: #### L 100.0100, L500.2500 ####[facility] [address] [place], [address] CA,Total 8.7 mg/dL Normal 8.5-10.1 [facility] Comment on above: Performed By: #### L 100.0100, L500.2500 ####[facility] [address] [place], [address] Chloride [Moles/Vol] 105 mmol/L Normal 98-107 [facility] Comment on above: Performed By: #### L 100.0100, L500.2500 ####[facility] [address] [place], [address] CO2 [Moles/Vol] 23.0 mmol/L Normal 21.0-32.0 [facility] Comment on above: Performed By: #### L 100.0100, L500.2500 ####[facility] [address] [place], [address] Creatinine [Mass/Vol] 6.71 mg/dL High 0.70-1.30 [facility] Comment on above: Result Comment: Crimichael ical Result(s) Called at: 06:41:00 01/25/2024 by: CAROL to Ana David. Results read back by same.The validity of the calculated GFR GFRAA in patients over70 years has not been determined. Clinical correlation isessential. Performed By: #### L 100.0100, L500.2500 ####[facility] [address] [place], [address] ECRCL 17.17 ml/min Normal [facility] Comment on above: Performed By: #### L 100.0100, L500.2500 ####[facility] [address] [place], [address] EST GFR - AA 12 mL/min Low >60 [facility] Comment on above: Result Comment: Afri can Swazi GFR Calc Performed By: #### L 100.0100, L500.2500 ####[facility] [address] [place], [address] GAP 7 Normal 5-15 [facility] Comment on above: Performed By: #### L 100.0100, L500.2500 ####[facility] [address] [place], [address] GFR/1.73 sq M.predicted among non-blacks MDRD (S/P/Bld) [Vol rate/Area] 10 mL/min/{1.73_m2} Low >60 [facility] Comment on above: Result Comment: Non- GFR Calc Performed By: #### L 100.0100, L500.2500 ####[facility] [address] [place], [address] Glucose [Mass/Vol] 83 mg/dL Normal 74-106 [facility] Comment on above: Performed By: #### L 100.0100, L500.2500 ####[facility] [address] [place], [address] Potassium [Moles/Vol] 4.5 mmol/L Normal 3.5-5.1 [facility] Comment on above: Result Comment: Mode rate Hemolysis, Result may be falsely increased. Performed By: #### L 100.0100, L500.2500 ####[facility] [address] [place], [address] Sodium [Moles/Vol] 134 mmol/L Low 136-145 [facility] Comment on above: Performed By: #### L 100.0100, L500.2500 ####[facility] [address] [place], [address] Urea nitrogen [Mass/Vol] 59 mg/dL High 7-18 [facility] Comment on above: Performed By: #### L 100.0100, L500.2500 ####[facility] [address] [place], [address] CBC W/Diff, Automatedon 10-2 -2023 Absolute Lymph 1.06 X10 3/uL Normal 0.83-4.51 [facility] Comment on above: Performed By: #### L 100.0100, L500.2500 ####[facility] [address] [place], [address] Absolute Neut 12.2 X10 3/uL High 2.0-7.7 [facility] Comment on above: Performed By: #### L 100.0100, L500.2500 ####[facility] [address] [place], [address] Basophils/100 WBC (Bld) 0.3 % Normal 0-1 [facility] Comment on above: Performed By: #### L 100.0100, L500.2500 ####[facility] [address] [place], [address] Eosinophils/100 WBC (Bld) 0.4 % Normal 0-5 [facility] Comment on above: Performed By: #### L 100.0100, L500.2500 ####[facility] [address] [place], [address] Erythrocyte distribution width (RBC) [Ratio] 13.3 % Normal 11.6-14.6 [facility] Comment on above: Performed By: #### L 100.0100, L500.2500 ####[facility] [address] [place], [address] Hematocrit (Bld) [Volume fraction] 22.2 % Low 40-54 [facility] Comment on above: Performed By: #### L 100.0100, L500.2500 ####[facility] [address] [place], [address] Hemoglobin (Bld) [Mass/Vol] 7.2 g/dL Low 13.0-16. 5 [facility] Comment on above: Performed By: #### L 100.0100, L500.2500 ####[facility] [address] [place], [address] IG% 0.500 Normal 0.0-0.9 [facility] Comment on above: Result Comment: IG% - Immature Granulocytes (promyelocytes, myelocytes andmetamyelocytes) > 1% indicates that a LEFT SHIFT is Present. Performed By: #### L 100.0100, L500.2500 ####[facility] [address] [place], [address] Lymphocytes/100 WBC (Bld) 7.1 % Low 19-41 [facility] Comment on above: Performed By: #### L 100.0100, L500.2500 ####[facility] [address] [place], [address] MCH (RBC) [Entitic mass] 27.2 pg Normal 27.0-32.0 [facility] Comment on above: Performed By: #### L 100.0100, L500.2500 ####[facility] [address] [place], [address] MCHC (RBC) [Mass/Vol] 32.4 g/dL Normal 32-36 [facility] Comment on above: Performed By: #### L 100.0100, L500.2500 ####[facility] [address] [place], [address] MCV (RBC) [Entitic vol] 83.8 fL Normal 80-94 [facility] Comment on above: Performed By: #### L 100.0100, L500.2500 ####[facility] [address] [place], [address] Monocytes/100 WBC (Bld) 9.7 % Normal 0-10 [facility] Comment on above: Performed By: #### L 100.0100, L500.2500 ####[facility] [address] [place], [address] Neutrophils/100 WBC (Bld) 82.0 % High 47-70 [facility] Comment on above: Performed By: #### L 100.0100, L500.2500 ####[facility] [address] [place], [address] Nucleated RBC (Bld) [#/Vol] 0 10*3/uL Normal 0-5 [facility] Comment on above: Performed By: #### L 100.0100, L500.2500 ####[facility] [address] [place], [address] Platelet mean volume (Bld) [Entitic vol] 9.2 fL Normal 6.2-12.0 [facility] Comment on above: Performed By: #### L 100.0100, L500.2500 ####[facility] [address] [place], [address] Platelets (Bld) [#/Vol] 262 10*3/uL Normal 150-450 [facility] Comment on above: Performed By: #### L 100.0100, L500.2500 ####[facility] [address] [place], [address] RBC (Bld) [#/Vol] 2.65 10*6/uL Low 4.6-6.2 [facility] Comment on above: Performed By: #### L 100.0100, L500.2500 ####[facility] [address] [place], [address] RDW SD 40.8 fl Normal 35.1-43.9 [facility] Comment on above: Performed By: #### L 100.0100, L500.2500 ####[facility] [address] [place], [address] WBC (Bld) [#/Vol] 14.8 10*3/uL High 4.4-11.0 [facility] Comment on above: Performed By: #### L 100.0100, L500.2500 ####[facility] [address] [place], [address] Chest 1 View (Portable)on Chest 1 View (Portable) Normal [facility] Ferritinon 01-25-2024 Ferritin [Mass/Vol] 63 ng/mL Normal 26-388 [facility] Comment on above: Order Comment: Has Kalin navas had X-rays with Contrast this admission? YN Performed By: #### L 506.0250, L503.6030, L503.6550, L503.0105 ####[facility] [address] [place], [address] Folates, (Folic Acid)on 12-30 FOLATES 6.90 ng/mL Normal 3.1-55.4 [facility] Comment on above: Order Comment: Has Kalin navas had X-rays with Contrast this admission? YN Result Comment: Mode rate Hemolysis, Result may be falsely increased. Performed By: #### L 506.0250, L503.6030, L503.6550, L503.0105 ####[facility] [address] [place], [address] Iron+Iron Binding Capacityon 01-25-2024 Iron [Mass/Vol] 13 ug/dL Low 65-175 [facility] Comment on above: Order Comment: Has Kalin navas had X-rays with Contrast this admission? YN Result Comment: Mode rate Hemolysis, Result may be falsely increased. Performed By: #### L 506.0250, L503.6030, L503.6550, L503.0105 ####[facility] [address] [place], [address] IRON SATURATION 5.6 Low 15.0-55.0 [facility] Comment on above: Order Comment: Has Kalin navas had X-rays with Contrast this admission? YN Performed By: #### L 506.0250, L503.6030, L503.6550, L503.0105 ####[facility] [address] [place], [address] TIBC 232 ug/dL Low 250-450 [facility] Comment on above: Order Comment: Has Kalin navas had X-rays with Contrast this admission? YN Result Comment: Mode rate Hemolysis, Result may be falsely increased. Performed By: #### L 506.0250, L503.6030, L503.6550, L503.0105 ####[facility] [address] [place], [address] M100.019on 01-25-2024 M100.019 Negative Normal [facility] Comment on above: Performed By: #### M 100.019 ####[facility] [address] [place], [address] RESPIRATORY PANEL MOLECULARo n 01-25-2024 RP PANEL Normal [facility] Comment on above: Performed By: #### M 100.638 ####[facility] [address] [place], [address] Type AND Screenon 01-25-2024 Ab SCREEN GEL Negative Normal [facility] Comment on above: Order Comment: CMV N EG? NNumber of units to transfuse: 1Reason for Ordering Blood: ChronicIs there symptomatic anemia? Alireza the blood/blood products to be transfused? YIs the patient having/had surgery? NWhen ReadyNY Performed By: #### B RC, BTS ####[facility] [address] [place], [address] Urinalysis, Completeon 01-24 BACTERIA 1+ /hpf Normal None Seen [facility] Comment on above: Order Comment: Urine , Random Performed By: #### L 400.0001 ####[facility] [address] [place], [address] BILIRUBIN URINE Negative Normal Negative [facility] Comment on above: Order Comment: Urine , Random Performed By: #### L 400.0001 ####[facility] [address] [place], [address] Clarity (U) Clear Normal Clear [facility] Comment on above: Order Comment: Urine , Random Performed By: #### L 400.0001 ####[facility] [address] [place], [address] Color (U) Straw Normal Yellow [facility] Comment on above: Order Comment: Urine , Random Performed By: #### L 400.0001 ####[facility] [address] [place], [address] GLUCOSE, UR Normal Normal Normal [facility] Comment on above: Order Comment: Urine , Random Performed By: #### L 400.0001 ####[facility] [address] [place], [address] KETONE UR Negative Normal Negative [facility] Comment on above: Order Comment: Urine , Random Performed By: #### L 400.0001 ####[facility] [address] [place], [address] LEUK ESTERASE Negative Normal Negative [facility] Comment on above: Order Comment: Urine , Random Performed By: #### L 400.0001 ####[facility] [address] [place], [address] Nitrite Ql (U) Negative Normal Negative [facility] Comment on above: Order Comment: Urine , Random Performed By: #### L 400.0001 ####[facility] [address] [place], [address] OCCULT BLOOD-UR 10 /ul Abnormal Negative [facility] Comment on above: Order Comment: Urine , Random Performed By: #### L 400.0001 ####[facility] [address] [place], [address] pH UR 6.0 Normal 5.0 - 8.0 [facility] Comment on above: Order Comment: Urine , Random Performed By: #### L 400.0001 ####[facility] [address] [place], [address] PROT DIPSTX 100 mg/dl Abnormal Negative [facility] Comment on above: Order Comment: Urine , Random Performed By: #### L 400.0001 ####[facility] [address] [place], [address] SP.GR. DIPSTX 1.020 Normal 1.002-1.030 [facility] Comment on above: Order Comment: Urine , Random Performed By: #### L 400.0001 ####[facility] [address] [place], [address] UROBILI Normal Normal Normal [facility] Comment on above: Order Comment: Urine , Random Performed By: #### L 400.0001 ####[facility] [address] [place], [address] EPI,SQUAMOUS 0 SEEN Normal 0-5 [facility] Comment on above: Order Comment: Urine , Random Performed By: #### L 400.0001 ####[facility] [address] [place], [address] Mucus Ql (Urine sed) 0 SEEN Normal [facility] Comment on above: Order Comment: Urine , Random Performed By: #### L 400.0001 ####[facility] [address] [place], [address] RBC 0 SEEN Normal 0-5 [facility] Comment on above: Order Comment: Urine , Random Performed By: #### L 400.0001 ####[facility] [address] [place], [address] WBC 0 SEEN Normal 0-5 [facility] Comment on above: Order Comment: Urine , Random Performed By: #### L 400.0001 ####[facility] [address] [place], [address] 12 Lead EKGon 01-24-2024 12 Lead EKG Normal [facility] BNP,B-Type NATRIURETIC PEPTI Tony 01-24-2024 Natriuretic peptide B (Bld) [Mass/Vol] 1030.6 pg/mL High 0-100 [facility] Comment on above: Performed By: #### L 503.6620 ####[facility] [address] [place], [address] Basic Metabolic Profile (BMP )on 01-24-2024 BUN Normal 7-18 [facility] Comment on above: Order Comment: Call MD with results STAT Result Comment: Dano parada via OM: Pt no longer on insulin drip Performed By: #### L 500.2500 ####[facility] [address] [place], [address] BUN/CRE Normal 10-20 [facility] Comment on above: Order Comment: Call MD with results STAT Result Comment: Canc elled via OM: Pt no longer on insulin drip Performed By: #### L 500.2500 ####[facility] [address] [place], [address] CA,Total Normal 8.5-10.1 [facility] Comment on above: Order Comment: Call MD with results STAT Result Comment: Canc elled via OM: Pt no longer on insulin drip Performed By: #### L 500.2500 ####[facility] [address] [place], [address] CL Normal 98-107 [facility] Comment on above: Order Comment: Call MD with results STAT Result Comment: Canc elled via OM: Pt no longer on insulin drip Performed By: #### L 500.2500 ####[facility] [address] [place], [address] CO2 Normal 21.0-32.0 [facility] Comment on above: Order Comment: Call MD with results STAT Result Comment: Canc elled via OM: Pt no longer on insulin drip Performed By: #### L 500.2500 ####[facility] [address] [place], [address] CREAT,SERUM Normal 0.70-1.30 [facility] Comment on above: Order Comment: Call MD with results STAT Result Comment: Canc elled via OM: Pt no longer on insulin drip Performed By: #### L 500.2500 ####[facility] [address] [place], [address] EST GFR Normal >60 [facility] Comment on above: Order Comment: Call MD with results STAT Result Comment: Canc elled via OM: Pt no longer on insulin drip Performed By: #### L 500.2500 ####[facility] [address] [place], [address] EST GFR - AA Normal >60 [facility] Comment on above: Order Comment: Call MD with results STAT Result Comment: Canc elled via OM: Pt no longer on insulin drip Performed By: #### L 500.2500 ####[facility] [address] [place], [address] GAP Normal 5-15 [facility] Comment on above: Order Comment: Call MD with results STAT Result Comment: Canc elled via OM: Pt no longer on insulin drip Performed By: #### L 500.2500 ####[facility] [address] [place], [address] GLU Normal 74-106 [facility] Comment on above: Order Comment: Call MD with results STAT Result Comment: Canc elled via OM: Pt no longer on insulin drip Performed By: #### L 500.2500 ####[facility] [address] [place], [address] Potassium Normal 3.5-5.1 [facility] Comment on above: Order Comment: Call MD with results STAT Result Comment: Canc elled via OM: Pt no longer on insulin drip Performed By: #### L 500.2500 ####[facility] [address] [place], [address] Basic Metabolic Profile (BMP) Normal 136-145 [facility] Comment on above: Order Comment: Call MD with results STAT Result Comment: Canc elled via OM: Pt no longer on insulin drip Performed By: #### L 500.2500 ####[facility] [address] [place], [address] Bedside Glucoseon 01-24-2024 FINGERSTICK GLU 115 mg/dL High 74-106 [facility] Comment on above: Result Comment: EDUARDO JACOBO OF PATIENT CARE PER NURSING PROTOCOL Performed By: #### L 501.080 ####[facility] [address] [place], [address] CBC-Complete Blood Cnt No Di ffon 01-24-2024 Erythrocyte distribution width (RBC) [Ratio] 13.4 % Normal 11.6-14.6 [facility] Comment on above: Performed By: #### L 100.0500 ####[facility] [address] [place], [address] Hematocrit (Bld) [Volume fraction] 22.2 % Low 40-54 [facility] Comment on above: Performed By: #### L 100.0500 ####[facility] [address] [place], [address] Hemoglobin (Bld) [Mass/Vol] 7.3 g/dL Low 13.0-16. 5 [facility] Comment on above: Performed By: #### L 100.0500 ####[facility] [address] [place], [address] MCH (RBC) [Entitic mass] 27.0 pg Normal 27.0-32.0 [facility] Comment on above: Performed By: #### L 100.0500 ####[facility] [address] [place], [address] MCHC (RBC) [Mass/Vol] 32.9 g/dL Normal 32-36 [facility] Comment on above: Performed By: #### L 100.0500 ####[facility] [address] [place], [address] MCV (RBC) [Entitic vol] 82.2 fL Normal 80-94 [facility] Comment on above: Performed By: #### L 100.0500 ####[facility] [address] [place], [address] Platelet mean volume (Bld) [Entitic vol] 9.5 fL Normal 6.2-12.0 [facility] Comment on above: Performed By: #### L 100.0500 ####[facility] [address] [place], [address] Platelets (Bld) [#/Vol] 283 10*3/uL Normal 150-450 [facility] Comment on above: Performed By: #### L 100.0500 ####[facility] [address] [place], [address] RBC (Bld) [#/Vol] 2.70 10*6/uL Low 4.6-6.2 [facility] Comment on above: Performed By: #### L 100.0500 ####[facility] [address] [place], [address] RDW SD 40.1 fl Normal 35.1-43.9 [facility] Comment on above: Performed By: #### L 100.0500 ####[facility] [address] [place], [address] WBC (Bld) [#/Vol] 12.9 10*3/uL High 4.4-11.0 [facility] Comment on above: Performed By: #### L 100.0500 ####[facility] [address] [place], [address] Comprehensive Metabolic Prof [facility] 01-24-2024 Albumin [Mass/Vol] 3.0 g/dL Low 3.2-5.0 [facility] Comment on above: Performed By: #### L 500.4050, L501.2300 ####[facility] [address] [place], [address] Albumin/Globulin [Mass ratio] 1.0 {ratio} Normal 0.9-2.4 [facility] Comment on above: Performed By: #### L 500.4050, L501.2300 ####[facility] [address] [place], [address] ALK P 53 U/L Normal 45-117 [facility] Comment on above: Performed By: #### L 500.4050, L501.2300 ####[facility] [address] [place], [address] ALT [Catalytic activity/Vol] 26 U/L Normal 16-61 [facility] Comment on above: Performed By: #### L 500.4050, L501.2300 ####[facility] [address] [place], [address] AST [Catalytic activity/Vol] 49 U/L High 15-37 [facility] Comment on above: Performed By: #### L 500.4050, L501.2300 ####[facility] [address] [place], [address] Bilirubin [Mass/Vol] 0.30 mg/dL Normal 0.20-1.00 [facility] Comment on above: Result Comment: For patients on eltrombopag therapy, use of Dimension [place] TBIL is not recommended. Performed By: #### L 500.4050, L501.2300 ####[facility] [address] [place], [address] BUN/CRE 11.1 RATIO Normal 10-20 [facility] Comment on above: Performed By: #### L 500.4050, L501.2300 ####[facility] [address] [place], [address] CA,Total 8.4 mg/dL Low 8.5-10.1 [facility] Comment on above: Performed By: #### L 500.4050, L501.2300 ####[facility] [address] [place], [address] Chloride [Moles/Vol] 109 mmol/L High 98-107 [facility] Comment on above: Performed By: #### L 500.4050, L501.2300 ####[facility] [address] [place], [address] CO2 [Moles/Vol] 22.0 mmol/L Normal 21.0-32.0 [facility] Comment on above: Performed By: #### L 500.4050, L501.2300 ####[facility] [address] [place], [address] Creatinine [Mass/Vol] 4.40 mg/dL High 0.70-1.30 [facility] Comment on above: Result Comment: The validity of the calculated GFR GFRAA in patients over70 years has not been determined. Clinical correlation isessential. Performed By: #### L 500.4050, L501.2300 ####[facility] [address] [place], [address] ECRCL 25.97 ml/min Normal [facility] Comment on above: Performed By: #### L 500.4050, L501.2300 ####[facility] [address] [place], [address] EST GFR - AA 19 mL/min Low >60 [facility] Comment on above: Result Comment: Afri can Swazi GFR Calc Performed By: #### L 500.4050, L501.2300 ####[facility] [address] [place], [address] GAP 9 Normal 5-15 [facility] Comment on above: Performed By: #### L 500.4050, L501.2300 ####[facility] [address] [place], [address] GFR/1.73 sq M.predicted among non-blacks MDRD (S/P/Bld) [Vol rate/Area] 16 mL/min/{1.73_m2} Low >60 [facility] Comment on above: Result Comment: Non- GFR Calc Performed By: #### L 500.4050, L501.2300 ####[facility] [address] [place], [address] Globulin (S) [Mass/Vol] 2.9 g/dL Normal 2.2-4.2 [facility] Comment on above: Performed By: #### L 500.4050, L501.2300 ####[facility] [address] [place], [address] Glucose [Mass/Vol] 100 mg/dL Normal 74-106 [facility] Comment on above: Result Comment: Fast ing Glucose result from 100 to 125 mg/dLsuggests IMPAIRED HOMEOSTASIS per A.D.A. criteria. Performed By: #### L 500.4050, L501.2300 ####[facility] [address] [place], [address] Potassium [Moles/Vol] 3.9 mmol/L Normal 3.5-5.1 [facility] Comment on above: Performed By: #### L 500.4050, L501.2300 ####[facility] [address] [place], [address] Sodium [Moles/Vol] 139 mmol/L Normal 136-145 [facility] Comment on above: Performed By: #### L 500.4050, L501.2300 ####[facility] [address] [place], [address] T PROT 5.9 g/dL Low 6.4-8.2 [facility] Comment on above: Performed By: #### L 500.4050, L501.2300 ####[facility] [address] [place], [address] Urea nitrogen [Mass/Vol] 49 mg/dL High 7-18 [facility] Comment on above: Performed By: #### L 500.4050, L501.2300 ####[facility] [address] [place], [address] Consultation - Intensiviston 01-24-2024 Consultation - Cloth Mercerizer Back Tender Normal [facility] Phosphoruson 01-24-2024 Phosphate [Mass/Vol] 4.9 mg/dL Normal 2.5-4.9 [facility] Comment on above: Performed By: #### L 500.4050, L501.2300 ####[facility] [address] [place], [address] 12 Lead EKGon 01-23-2024 12 Lead EKG Normal [facility] ACT Activated Clotting Timeo n 01-23-2024 ACTk CLOT TIME 250 sec High 74-137 [facility] Comment on above: Performed By: #### L 9100.0100 ####[facility] [address] [place], [address] ACTk CLOT TIME 177 sec High 74-137 [facility] Comment on above: Performed By: #### L 9100.0100 ####[facility] [address] [place], [address] Acetone Serumon 01-23-2024 ACETONE SERUM Negative Normal NEG [facility] Comment on above: Performed By: #### L 501.6900, L100.0100 ####[facility] [address] [place], [address] BNP,B-Type NATRIURETIC PEPTI Tony 01-23-2024 Natriuretic peptide B (Bld) [Mass/Vol] 1063.7 pg/mL High 0-100 [facility] Comment on above: Performed By: #### L 503.6620 ####[facility] [address] [place], [address] Basic Metabolic Profile (BMP )on 01-23-2024 BUN Normal 7-18 [facility] Comment on above: Order Comment: Call with results STAT Result Comment: @SUKI ADAMS SAID THAT THIS PATIENT IS ON AN INSULIN@DRIP. FORGOT TO CANCEL THESE TESTS. Performed By: #### L 500.2500 ####[facility] [address] [place], [address] BUN/CRE Normal 10-20 [facility] Comment on above: Order Comment: Call MD with results STAT Result Comment: @SUKI IE SAID THAT THIS PATIENT IS ON AN INSULIN@DRIP. FORGOT TO CANCEL THESE TESTS. Performed By: #### L 500.2500 ####[facility] [address] [place], [address] CA,Total Normal 8.5-10.1 [facility] Comment on above: Order Comment: Call MD with results STAT Result Comment: @SUKI IE SAID THAT THIS PATIENT IS ON AN INSULIN@DRIP. FORGOT TO CANCEL THESE TESTS. Performed By: #### L 500.2500 ####[facility] [address] [place], [address] CL Normal 98-107 [facility] Comment on above: Order Comment: Call MD with results STAT Result Comment: @SUKI IE SAID THAT THIS PATIENT IS ON AN INSULIN@DRIP. FORGOT TO CANCEL THESE TESTS. Performed By: #### L 500.2500 ####[facility] [address] [place], [address] CO2 Normal 21.0-32.0 [facility] Comment on above: Order Comment: Call with results STAT Result Comment: @SUKI IE SAID THAT THIS PATIENT IS ON AN INSULIN@DRIP. FORGOT TO CANCEL THESE TESTS. Performed By: #### L 500.2500 ####[facility] [address] [place], [address] CREAT,SERUM Normal 0.70-1.30 [facility] Comment on above: Order Comment: Call with results STAT Result Comment: @SUKI IE SAID THAT THIS PATIENT IS ON AN INSULIN@DRIP. FORGOT TO CANCEL THESE TESTS. Performed By: #### L 500.2500 ####[facility] [address] [place], [address] EST GFR Normal >60 [facility] Comment on above: Order Comment: Call MD with results STAT Result Comment: @SUKI IE SAID THAT THIS PATIENT IS ON AN INSULIN@DRIP. FORGOT TO CANCEL THESE TESTS. Performed By: #### L 500.2500 ####[facility] [address] [place], [address] EST GFR - AA Normal >60 [facility] Comment on above: Order Comment: Call MD with results STAT Result Comment: @SUKI IE SAID THAT THIS PATIENT IS ON AN INSULIN@DRIP. FORGOT TO CANCEL THESE TESTS. Performed By: #### L 500.2500 ####[facility] [address] [place], [address] GAP Normal 5-15 [facility] Comment on above: Order Comment: Call MD with results STAT Result Comment: @SUKI IE SAID THAT THIS PATIENT IS ON AN INSULIN@DRIP. FORGOT TO CANCEL THESE TESTS. Performed By: #### L 500.2500 ####[facility] [address] [place], [address] GLU Normal 74-106 [facility] Comment on above: Order Comment: Call MD with results STAT Result Comment: @SUKI IE SAID THAT THIS PATIENT IS ON AN INSULIN@DRIP. FORGOT TO CANCEL THESE TESTS. Performed By: #### L 500.2500 ####[facility] [address] [place], [address] Potassium Normal 3.5-5.1 [facility] Comment on above: Order Comment: Call MD with results STAT Result Comment: @SUKI IE SAID THAT THIS PATIENT IS ON AN INSULIN@DRIP. FORGOT TO CANCEL THESE TESTS. Performed By: #### L 500.2500 ####[facility] [address] [place], [address] Basic Metabolic Profile (BMP) Normal 136-145 [facility] Comment on above: Order Comment: Call MD with results STAT Result Comment: @SUKI IE SAID THAT THIS PATIENT IS ON AN INSULIN@DRIP. FORGOT TO CANCEL THESE TESTS. Performed By: #### L 500.2500 ####[facility] [address] [place], [address] BUN Normal 7-18 [facility] Comment on above: Order Comment: Call MD with results STAT Result Comment: @NOT DRAWN ON TIME Performed By: #### L 500.2500 ####[facility] [address] [place], [address] BUN/CRE Normal 10-20 [facility] Comment on above: Order Comment: Call MD with results STAT Result Comment: @NOT DRAWN ON TIME Performed By: #### L 500.2500 ####[facility] [address] [place], [address] CA,Total Normal 8.5-10.1 [facility] Comment on above: Order Comment: Call MD with results STAT Result Comment: @NOT DRAWN ON TIME Performed By: #### L 500.2500 ####[facility] [address] [place], [address] CL Normal 98-107 [facility] Comment on above: Order Comment: Call MD with results STAT Result Comment: @NOT DRAWN ON TIME Performed By: #### L 500.2500 ####[facility] [address] [place], [address] CO2 Normal 21.0-32.0 [facility] Comment on above: Order Comment: Call MD with results STAT Result Comment: @NOT DRAWN ON TIME Performed By: #### L 500.2500 ####[facility] [address] [place], [address] CREAT,SERUM Normal 0.70-1.30 [facility] Comment on above: Order Comment: Call MD with results STAT Result Comment: @NOT DRAWN ON TIME Performed By: #### L 500.2500 ####[facility] [address] [place], [address] EST GFR Normal >60 [facility] Comment on above: Order Comment: Call MD with results STAT Result Comment: @NOT DRAWN ON TIME Performed By: #### L 500.2500 ####[facility] [address] [place], [address] EST GFR - AA Normal >60 [facility] Comment on above: Order Comment: Call MD with results STAT Result Comment: @NOT DRAWN ON TIME Performed By: #### L 500.2500 ####[facility] [address] [place], [address] GAP Normal 5-15 [facility] Comment on above: Order Comment: Call MD with results STAT Result Comment: @NOT DRAWN ON TIME Performed By: #### L 500.2500 ####[facility] [address] [place], [address] GLU Normal 74-106 [facility] Comment on above: Order Comment: Call MD with results STAT Result Comment: @NOT DRAWN ON TIME Performed By: #### L 500.2500 ####[facility] [address] [place], [address] Potassium Normal 3.5-5.1 [facility] Comment on above: Order Comment: Call MD with results STAT Result Comment: @NOT DRAWN ON TIME Performed By: #### L 500.2500 ####[facility] [address] [place], [address] Basic Metabolic Profile (BMP) Normal 136-145 [facility] Comment on above: Order Comment: Call MD with results STAT Result Comment: @NOT DRAWN ON TIME Performed By: #### L 500.2500 ####[facility] [address] [place], [address] BUN Normal 7-18 [facility] Comment on above: Order Comment: Call MD with results STAT Result Comment: @NOT DRAWN ON TIME Performed By: #### L 500.2500 ####[facility] [address] [place], [address] BUN/CRE Normal 10-20 [facility] Comment on above: Order Comment: Call MD with results STAT Result Comment: @NOT DRAWN ON TIME Performed By: #### L 500.2500 ####[facility] [address] [place], [address] CA,Total Normal 8.5-10.1 [facility] Comment on above: Order Comment: Call MD with results STAT Result Comment: @NOT DRAWN ON TIME Performed By: #### L 500.2500 ####[facility] [address] [place], [address] CL Normal 98-107 [facility] Comment on above: Order Comment: Call MD with results STAT Result Comment: @NOT DRAWN ON TIME Performed By: #### L 500.2500 ####[facility] [address] [place], [address] CO2 Normal 21.0-32.0 [facility] Comment on above: Order Comment: Call MD with results STAT Result Comment: @NOT DRAWN ON TIME Performed By: #### L 500.2500 ####[facility] [address] [place], [address] CREAT,SERUM Normal 0.70-1.30 [facility] Comment on above: Order Comment: Call MD with results STAT Result Comment: @NOT DRAWN ON TIME Performed By: #### L 500.2500 ####[facility] [address] [place], [address] EST GFR Normal >60 [facility] Comment on above: Order Comment: Call MD with results STAT Result Comment: @NOT DRAWN ON TIME Performed By: #### L 500.2500 ####[facility] [address] [place], [address] EST GFR - AA Normal >60 [facility] Comment on above: Order Comment: Call MD with results STAT Result Comment: @NOT DRAWN ON TIME Performed By: #### L 500.2500 ####[facility] [address] [place], [address] GAP Normal 5-15 [facility] Comment on above: Order Comment: Call MD with results STAT Result Comment: @NOT DRAWN ON TIME Performed By: #### L 500.2500 ####[facility] [address] [place], [address] GLU Normal 74-106 [facility] Comment on above: Order Comment: Call MD with results STAT Result Comment: @NOT DRAWN ON TIME Performed By: #### L 500.2500 ####[facility] [address] [place], [address] Potassium Normal 3.5-5.1 [facility] Comment on above: Order Comment: Call MD with results STAT Result Comment: @NOT DRAWN ON TIME Performed By: #### L 500.2500 ####[facility] [address] [place], [address] Basic Metabolic Profile (BMP) Normal 136-145 [facility] Comment on above: Order Comment: Call MD with results STAT Result Comment: @NOT DRAWN ON TIME Performed By: #### L 500.2500 ####[facility] [address] [place], [address] BUN/CRE 13.9 RATIO Normal 10-20 [facility] Comment on above: Order Comment: Call MD with results STAT Performed By: #### L 500.2500 ####[facility] [address] [place], [address] CA,Total 9.1 mg/dL Normal 8.5-10.1 [facility] Comment on above: Order Comment: Call MD with results STAT Performed By: #### L 500.2500 ####[facility] [address] [place], [address] Chloride [Moles/Vol] 107 mmol/L Normal 98-107 [facility] Comment on above: Order Comment: Call MD with results STAT Performed By: #### L 500.2500 ####[facility] [address] [place], [address] CO2 [Moles/Vol] 19.0 mmol/L Low 21.0-32.0 [facility] Comment on above: Order Comment: Call MD with results STAT Performed By: #### L 500.2500 ####[facility] [address] [place], [address] Creatinine [Mass/Vol] 5.70 mg/dL High 0.70-1.30 [facility] Comment on above: Order Comment: Call MD with results STAT Result Comment: The validity of the calculated GFR GFRAA in patients over70 years has not been determined. Clinical correlation isessential. Performed By: #### L 500.2500 ####[facility] [address] [place], [address] ECRCL 20.12 ml/min Normal [facility] Comment on above: Order Comment: Call MD with results STAT Performed By: #### L 500.2500 ####[facility] [address] [place], [address] EST GFR - AA 14 mL/min Low >60 [facility] Comment on above: Order Comment: Call MD with results STAT Result Comment: Afri can Swazi GFR Calc Performed By: #### L 500.2500 ####[facility] [address] [place], [address] GAP 13 Normal 5-15 [facility] Comment on above: Order Comment: Call MD with results STAT Performed By: #### L 500.2500 ####[facility] [address] [place], [address] GFR/1.73 sq M.predicted among non-blacks MDRD (S/P/Bld) [Vol rate/Area] 12 mL/min/{1.73_m2} Low >60 [facility] Comment on above: Order Comment: Call MD with results STAT Result Comment: Non- GFR Calc Performed By: #### L 500.2500 ####[facility] [address] [place], [address] Glucose [Mass/Vol] 117 mg/dL High 74-106 [facility] Comment on above: Order Comment: Call MD with results STAT Result Comment: Fast ing Glucose result from 100 to 125 mg/dLsuggests IMPAIRED HOMEOSTASIS per A.D.A. criteria. Performed By: #### L 500.2500 ####[facility] [address] [place], [address] Potassium [Moles/Vol] 3.8 mmol/L Normal 3.5-5.1 [facility] Comment on above: Order Comment: Call MD with results STAT Performed By: #### L 500.2500 ####[facility] [address] [place], [address] Sodium [Moles/Vol] 139 mmol/L Normal 136-145 [facility] Comment on above: Order Comment: Call MD with results STAT Performed By: #### L 500.2500 ####[facility] [address] [place], [address] Urea nitrogen [Mass/Vol] 79 mg/dL High 7-18 [facility] Comment on above: Order Comment: Call MD with results STAT Performed By: #### L 500.2500 ####[facility] [address] [place], [address] BUN/CRE 14.0 RATIO Normal 10-20 [facility] Comment on above: Order Comment: Call MD with results STAT Performed By: #### L 500.2500 ####[facility] [address] [place], [address] CA,Total 8.8 mg/dL Normal 8.5-10.1 [facility] Comment on above: Order Comment: Call MD with results STAT Performed By: #### L 500.2500 ####[facility] [address] [place], [address] Chloride [Moles/Vol] 107 mmol/L Normal 98-107 [facility] Comment on above: Order Comment: Call MD with results STAT Performed By: #### L 500.2500 ####[facility] [address] [place], [address] CO2 [Moles/Vol] 19.0 mmol/L Low 21.0-32.0 [facility] Comment on above: Order Comment: Call MD with results STAT Performed By: #### L 500.2500 ####[facility] [address] [place], [address] Creatinine [Mass/Vol] 5.72 mg/dL High 0.70-1.30 [facility] Comment on above: Order Comment: Call MD with results STAT Result Comment: The validity of the calculated GFR GFRAA in patients over70 years has not been determined. Clinical correlation isessential. Performed By: #### L 500.2500 ####[facility] [address] [place], [address] ECRCL 20.05 ml/min Normal [facility] Comment on above: Order Comment: Call MD with results STAT Performed By: #### L 500.2500 ####[facility] [address] [place], [address] EST GFR - AA 14 mL/min Low >60 [facility] Comment on above: Order Comment: Call MD with results STAT Result Comment: Afri can Swazi GFR Calc Performed By: #### L 500.2500 ####[facility] [address] [place], [address] GAP 11 Normal 5-15 [facility] Comment on above: Order Comment: Call MD with results STAT Performed By: #### L 500.2500 ####[facility] [address] [place], [address] GFR/1.73 sq M.predicted among non-blacks MDRD (S/P/Bld) [Vol rate/Area] 12 mL/min/{1.73_m2} Low >60 [facility] Comment on above: Order Comment: Call MD with results STAT Result Comment: Non- GFR Calc Performed By: #### L 500.2500 ####[facility] [address] [place], [address] Glucose [Mass/Vol] 114 mg/dL High 74-106 [facility] Comment on above: Order Comment: Call MD with results STAT Result Comment: Fast ing Glucose result from 100 to 125 mg/dLsuggests IMPAIRED HOMEOSTASIS per A.D.A. criteria. Performed By: #### L 500.2500 ####[facility] [address] [place], [address] Potassium [Moles/Vol] 3.9 mmol/L Normal 3.5-5.1 [facility] Comment on above: Order Comment: Call MD with results STAT Performed By: #### L 500.2500 ####[facility] [address] [place], [address] Sodium [Moles/Vol] 137 mmol/L Normal 136-145 [facility] Comment on above: Order Comment: Call MD with results STAT Performed By: #### L 500.2500 ####[facility] [address] [place], [address] Urea nitrogen [Mass/Vol] 80 mg/dL High 7-18 [facility] Comment on above: Order Comment: Call MD with results STAT Performed By: #### L 500.2500 ####[facility] [address] [place], [address] BUN/CRE 13.4 RATIO Normal 10-20 [facility] Comment on above: Performed By: #### L 501.9520, L500.2500, L500.4100, L501.5200 ####[facility] [address] [place], [address] CA,Total 9.2 mg/dL Normal 8.5-10.1 [facility] Comment on above: Performed By: #### L 501.9520, L500.2500, L500.4100, L501.5200 ####[facility] [address] [place], [address] Chloride [Moles/Vol] 104 mmol/L Normal 98-107 [facility] Comment on above: Performed By: #### L 501.9520, L500.2500, L500.4100, L501.5200 ####[facility] [address] [place], [address] CO2 [Moles/Vol] 18.0 mmol/L Low 21.0-32.0 [facility] Comment on above: Performed By: #### L 501.9520, L500.2500, L500.4100, L501.5200 ####[facility] [address] [place], [address] Creatinine [Mass/Vol] 5.88 mg/dL High 0.70-1.30 [facility] Comment on above: Result Comment: The validity of the calculated GFR GFRAA in patients over70 years has not been determined. Clinical correlation isessential. Performed By: #### L 501.9520, L500.2500, L500.4100, L501.5200 ####[facility] [address] [place], [address] ECRCL 19.51 ml/min Normal [facility] Comment on above: Performed By: #### L 501.9520, L500.2500, L500.4100, L501.5200 ####[facility] [address] [place], [address] EST GFR - AA 14 mL/min Low >60 [facility] Comment on above: Result Comment: Afri can Swazi GFR Calc Performed By: #### L 501.9520, L500.2500, L500.4100, L501.5200 ####[facility] [address] [place], [address] GAP 12 Normal 5-15 [facility] Comment on above: Performed By: #### L 501.9520, L500.2500, L500.4100, L501.5200 ####[facility] [address] [place], [address] GFR/1.73 sq M.predicted among non-blacks MDRD (S/P/Bld) [Vol rate/Area] 11 mL/min/{1.73_m2} Low >60 [facility] Comment on above: Result Comment: Non- GFR Calc Performed By: #### L 501.9520, L500.2500, L500.4100, L501.5200 ####[facility] [address] [place], [address] Glucose [Mass/Vol] 216 mg/dL High 74-106 [facility] Comment on above: Result Comment: Gluc ose result greater than or equal to 200 mg/dLsuggests DIABETES MELLITUS per A.D.A. criteria. Performed By: #### L 501.9520, L500.2500, L500.4100, L501.5200 ####[facility] [address] [place], [address] Potassium [Moles/Vol] 4.8 mmol/L Normal 3.5-5.1 [facility] Comment on above: Result Comment: Mode rate Hemolysis, Result may be falsely increased. Performed By: #### L 501.9520, L500.2500, L500.4100, L501.5200 ####[facility] [address] [place], [address] Sodium [Moles/Vol] 134 mmol/L Low 136-145 [facility] Comment on above: Performed By: #### L 501.9520, L500.2500, L500.4100, L501.5200 ####[facility] [address] [place], [address] Urea nitrogen [Mass/Vol] 79 mg/dL High 7-18 [facility] Comment on above: Performed By: #### L 501.9520, L500.2500, L500.4100, L501.5200 ####[facility] [address] [place], [address] BUN Normal 7-18 [facility] Comment on above: Order Comment: Call MD with results STAT Result Comment: This specimen has been REJECTED due to Laboratory criteria:Duplicate Order.01/23/24150 Lamarsofiya Rochaell Performed By: #### L 500.2500, L3300.0960, L501.9985, L505.5000 ####[facility] [address] [place], [address] BUN/CRE Normal 10-20 [facility] Comment on above: Order Comment: Call MD with results STAT Result Comment: This specimen has been REJECTED due to Laboratory criteria:Duplicate Order.01/23/24150 Lamar Colon Performed By: #### L 500.2500, L3300.0960, L501.9985, L505.5000 ####[facility] [address] [place], [address] CA,Total Normal 8.5-10.1 [facility] Comment on above: Order Comment: Call MD with results STAT Result Comment: This specimen has been REJECTED due to Laboratory criteria:Duplicate Order.01/23/24150 Lamar Colon Performed By: #### L 500.2500, L3300.0960, L501.9985, L505.5000 ####[facility] [address] [place], [address] CL Normal 98-107 [facility] Comment on above: Order Comment: Call MD with results STAT Result Comment: This specimen has been REJECTED due to Laboratory criteria:Duplicate Order.01/23/24150 Lamar Colon Performed By: #### L 500.2500, L3300.0960, L501.9985, L505.5000 ####[facility] [address] [place], [address] CO2 Normal 21.0-32.0 [facility] Comment on above: Order Comment: Call MD with results STAT Result Comment: This specimen has been REJECTED due to Laboratory criteria:Duplicate Order.01/23/24150 Lamar C Chariton Performed By: #### L 500.2500, L3300.0960, L501.9985, L505.5000 ####[facility] [address] [place], [address] CREAT,SERUM Normal 0.70-1.30 [facility] Comment on above: Order Comment: Call MD with results STAT Result Comment: This specimen has been REJECTED due to Laboratory criteria:Duplicate Order.01/23/24150 Lamar C Darlene Performed By: #### L 500.2500, L3300.0960, L501.9985, L505.5000 ####[facility] [address] [place], [address] EST GFR Normal >60 [facility] Comment on above: Order Comment: Call MD with results STAT Result Comment: This specimen has been REJECTED due to Laboratory criteria:Duplicate Order.01/23/24150 Lamar C Chariton Performed By: #### L 500.2500, L3300.0960, L501.9985, L505.5000 ####[facility] [address] [place], [address] EST GFR - AA Normal >60 [facility] Comment on above: Order Comment: Call MD with results STAT Result Comment: This specimen has been REJECTED due to Laboratory criteria:Duplicate Order.01/23/24150 Lamar C Chariton Performed By: #### L 500.2500, L3300.0960, L501.9985, L505.5000 ####[facility] [address] [place], [address] GAP Normal 5-15 [facility] Comment on above: Order Comment: Call MD with results STAT Result Comment: This specimen has been REJECTED due to Laboratory criteria:Duplicate Order.01/23/24150 Lamar C Darlene Performed By: #### L 500.2500, L3300.0960, L501.9985, L505.5000 ####[facility] [address] [place], [address] GLU Normal 74-106 [facility] Comment on above: Order Comment: Call MD with results STAT Result Comment: This specimen has been REJECTED due to Laboratory criteria:Duplicate Order.01/23/24150 Lamarsofiya Colon Performed By: #### L 500.2500, L3300.0960, L501.9985, L505.5000 ####[facility] [address] [place], [address] Potassium Normal 3.5-5.1 [facility] Comment on above: Order Comment: Call MD with results STAT Result Comment: This specimen has been REJECTED due to Laboratory criteria:Duplicate Order.01/23/24150 Lamar Colon Performed By: #### L 500.2500, L3300.0960, L501.9985, L505.5000 ####[facility] [address] [place], [address] Basic Metabolic Profile (BMP) Normal 136-145 [facility] Comment on above: Order Comment: Call MD with results STAT Result Comment: This specimen has been REJECTED due to Laboratory criteria:Duplicate Order.01/23/24150 Lamar Colon Performed By: #### L 500.2500, L3300.0960, L501.9985, L505.5000 ####[facility] [address] [place], [address] Bedside Glucoseon 01-23-2024 FINGERSTICK GLU 171 mg/dL High 74-106 [facility] Comment on above: Result Comment: EDUARDO JACOBO OF PATIENT CARE PER NURSING PROTOCOL Performed By: #### L 501.080 ####[facility] [address] [place], [address] FINGERSTICK GLU 82 mg/dL Normal 74-106 [facility] Comment on above: Result Comment: Dr Anna Marie martinez FollowedMANAGEMENT OF PATIENT CARE PER NURSING PROTOCOL Performed By: #### L 501.080 ####[facility] [address] [place], [address] FINGERSTICK GLU 100 mg/dL Normal 74-106 [facility] Comment on above: Result Comment: Dr Anna Marie martinez FollowedMANAGEMENT OF PATIENT CARE PER NURSING PROTOCOL Performed By: #### L 501.080 ####[facility] [address] [place], [address] FINGERSTICK GLU 84 mg/dL Normal 74-106 [facility] Comment on above: Result Comment: EDUARDO GEMENT OF PATIENT CARE PER NURSING PROTOCOL Performed By: #### L 501.080 ####[facility] [address] [place], [address] FINGERSTICK GLU 105 mg/dL Normal 74-106 [facility] Comment on above: Result Comment: EDUARDO GEMENT OF PATIENT CARE PER NURSING PROTOCOL Performed By: #### L 501.080 ####[facility] [address] [place], [address] FINGERSTICK GLU 97 mg/dL Normal 74-106 [facility] Comment on above: Result Comment: EDUARDO GEMENT OF PATIENT CARE PER NURSING PROTOCOL Performed By: #### L 501.080 ####[facility] [address] [place], [address] FINGERSTICK GLU 129 mg/dL High 74-106 [facility] Comment on above: Result Comment: EDUARDO GEMENT OF PATIENT CARE PER NURSING PROTOCOL Performed By: #### L 501.080 ####[facility] [address] [place], [address] FINGERSTICK GLU 158 mg/dL High 74-106 [facility] Comment on above: Result Comment: EDUARDO GEMENT OF PATIENT CARE PER NURSING PROTOCOL Performed By: #### L 501.080 ####[facility] [address] [place], [address] FINGERSTICK GLU 223 mg/dL High 74-106 [facility] Comment on above: Result Comment: EDUARDO GEMENT OF PATIENT CARE PER NURSING PROTOCOL Performed By: #### L 501.080 ####[facility] [address] [place], [address] FINGERSTICK GLU 240 mg/dL High 74-106 [facility] Comment on above: Result Comment: EDUARDO GEMENT OF PATIENT CARE PER NURSING PROTOCOL Performed By: #### L 501.080 ####[facility] [address] [place], [address] FINGERSTICK GLU 340 mg/dL High 74-106 [facility] Comment on above: Result Comment: EDUARDO GEMENT OF PATIENT CARE PER NURSING PROTOCOL Performed By: #### L 501.080 ####[facility] [address] [place], [address] Blood Gases by [facility] 01-22- 024 Base excess Calc (Bld) [Moles/Vol] -17 mmol/L Low -2 to +2 [facility] Comment on above: Performed By: #### L 9000.0800 ####[facility] [address] [place], [address] Blood Gas Type ART Normal [facility] Comment on above: Performed By: #### L 9000.0800 ####[facility] [address] [place], [address] CO2 [Moles/Vol] 12 mmol/L Normal [facility] Comment on above: Performed By: #### L 9000.0800 ####[facility] [address] [place], [address] HCO3 (Bld) [Moles/Vol] 10.8 mmol/L Low 22-26 [facility] Comment on above: Performed By: #### L 9000.0800 ####[facility] [address] [place], [address] Mode Not entered [facility] Comment on above: Performed By: #### L 9000.0800 ####[facility] [address] [place], [address] O2 Delivery Dev Not entered [facility] Comment on above: Performed By: #### L 9000.0800 ####[facility] [address] [place], [address] pCO2 28.3 mmHg Low 35-45 [facility] Comment on above: Performed By: #### L 9000.0800 ####[facility] [address] [place], [address] pH (Bld) 7.19 [pH] Invalid Interpretation Code 7.35-7.45 [facility] Comment on above: Performed By: #### L 9000.0800 ####[facility] [address] [place], [address] PO2 39 mmHG Invalid Interpretation Code 75-100 [facility] Comment on above: Performed By: #### L 9000.0800 ####[facility] [address] [place], [address] Read Back By Yes [facility] Comment on above: Performed By: #### L 9000.0800 ####[facility] [address] [place], [address] SITE Not entered [facility] Comment on above: Performed By: #### L 9000.0800 ####[facility] [address] [place], [address] SO2 63 Low 95-99 [facility] Comment on above: Performed By: #### L 9000.0800 ####[facility] [address] [place], [address] DUANE TEST Positive Normal [facility] Comment on above: Performed By: #### L 9000.0800 ####[facility] [address] [place], [address] Base excess Calc (Bld) [Moles/Vol] -6 mmol/L Low -2 to +2 [facility] Comment on above: Performed By: #### L 9000.0800 ####[facility] [address] [place], [address] Blood Gas Type ART Normal [facility] Comment on above: Performed By: #### L 9000.0800 ####[facility] [address] [place], [address] CO2 [Moles/Vol] 19 mmol/L Normal [facility] Comment on above: Performed By: #### L 9000.0800 ####[facility] [address] [place], [address] FI02 4.0 [facility] Comment on above: Performed By: #### L 9000.0800 ####[facility] [address] [place], [address] HCO3 (Bld) [Moles/Vol] 18.4 mmol/L Low 22-26 [facility] Comment on above: Performed By: #### L 9000.0800 ####[facility] [address] [place], [address] Mode Not entered Normal [facility] Comment on above: Performed By: #### L 9000.0800 ####[facility] [address] [place], [address] O2 Delivery Dev Cannula Normal [facility] Comment on above: Performed By: #### L 9000.0800 ####[facility] [address] [place], [address] pCO2 29.4 mmHg Low 35-45 [facility] Comment on above: Performed By: #### L 9000.0800 ####[facility] [address] [place], [address] pH (Bld) 7.40 [pH] Normal 7.35-7.45 [facility] Comment on above: Performed By: #### L 9000.0800 ####[facility] [address] [place], [address] PO2 63 mmHG Low 75-100 [facility] Comment on above: Performed By: #### L 9000.0800 ####[facility] [address] [place], [address] SITE R Radial Normal [facility] Comment on above: Performed By: #### L 9000.0800 ####[facility] [address] [place], [address] SO2 92 Low 95-99 [facility] Comment on above: Performed By: #### L 9000.0800 ####[facility] [address] [place], [address] CBC W/Diff, Automatedon 12-30 PATH REV Reviewed Normal [facility] Comment on above: Result Comment: Neut rophilic leukocytosis.Microcytic anemia.Clinical correlation necessary.Grzegorz Cheung M.D. 01/23/24 AMENDED REPORT 01/23/24 1550 PATH REV previously reported as: July mariaelena Performed By: #### L 501.6900, L100.0100 ####[facility] [address] [place], [address] CVS/PCIREPORTon 01-23-2024 CVS/PCIREPORT Normal [facility] CXR for Line Placementon CXR for Line Placement Normal [facility] Chest 1 View (Portable)on Chest 1 View (Portable) Normal [facility] Consultation - Nephrologyon 01-23-2024 Consultation - Nephrology Normal [facility] D-Dimer Quantitative (DVT/PE )on 01-23-2024 D-DIMER QUANT 0.45 FEU/ug/m Normal 0.27-0.49 [facility] Comment on above: Result Comment: NORM AL D-Dimer level (<0.50) indicates no DVT or PE. Performed By: #### L 300.8000 ####[facility] [address] [place], [address] Echo Completeon 01-23-2024 Echo Complete Normal [facility] Hemoglobin A1con 01-23-2024 HbA1c (Bld) [Mass fraction] 7.9 % High 3.8-5.6 [facility] Comment on above: Result Comment: Norm al < 5.7 % Prediabetic 5.7 - 6.4 % Diabetic >or= 6.5 % Please note range changes. Performed By: #### L 500.2500, L3300.0960, L501.9985, L505.5000 ####[facility] [address] [place], [address] Hepatitis B Surface Antigeno n 01-23-2024 HEP B Surf Ag Non-Reactive Normal Nonreactive [facility] Comment on above: Order Comment: Reaso n for Exam: need for outpatient dialysis Performed By: #### L 3890.6100 ####[facility] [address] [place], [address] L501.4020on 01-23-2024 TROPONIN-I HS 2250 pg/mL Invalid Interpretation Code 3.0-78.0 [facility] Comment on above: Order Comment: 'TROP ' Serial specimen #1, #2 or #3: 2 Result Comment: Crit ical Result(s) Called at: 02:22:19 01/23/2024 by:Lamar Singh. Results read back by same. Please Note: New Test Units and Gender Specific Reference Ranges. For more information see Policy Stat Procedure [place] High Sensitivity Troponin (TNIH) and attachments. Performed By: #### L 501.4020 ####[facility] [address] [place], [address] Lipid Profileon 01-23-2024 Cholesterol [Mass/Vol] 132 mg/dL Normal 200 [facility] Comment on above: Result Comment: <200 mg/dL Desirable 200-240 mg/dL Borderline >240 mg/dL High Risk Performed By: #### L 501.9520, L500.2500, L500.4100, L501.5200 ####[facility] [address] [place], [address] Cholesterol in HDL [Mass/Vol] 69 mg/dL Normal [facility] Comment on above: Result Comment: The drugs N-Acetylcysteine and Metamizole may falselydepress this assay. Reference Range HDL <40 mg/dL Low HDL Cholesterol HDL >or= 60 mg/dL High HDL Cholesterol Performed By: #### L 501.9520, L500.2500, L500.4100, L501.5200 ####[facility] [address] [place], [address] Cholesterol in LDL [Mass/Vol] 49 mg/dL Normal 0-130 [facility] Comment on above: Performed By: #### L 501.9520, L500.2500, L500.4100, L501.5200 ####[facility] [address] [place], [address] Cholesterol in VLDL [Mass/Vol] 14 mg/dL Normal 5-40 [facility] Comment on above: Performed By: #### L 501.9520, L500.2500, L500.4100, L501.5200 ####[facility] [address] [place], [address] Triglyceride [Mass/Vol] 72 mg/dL Normal [facility] Comment on above: Result Comment: The drugs N-Acetylcysteine and Metamizole may falselydepress this assay.Serum Triglycerides Reference Interval Normal <150 mg/dL Borderline high 150 - 199 mg/dL High 200 - 499 mg/dL Very High > or = 500 mg/dL Performed By: #### L 501.9520, L500.2500, L500.4100, L501.5200 ####[facility] [address] [place], [address] Magnesiumon 01-23-2024 Magnesium [Mass/Vol] 2.5 mg/dL Normal 1.6-2.6 [facility] Comment on above: Result Comment: Mode rate Hemolysis, Result may be falsely increased. Performed By: #### L 501.9520, L500.2500, L500.4100, L501.5200 ####[facility] [address] [place], [address] Partial Thromboplast Timeon 01-23-2024 aPTT Coag (Bld) [Time] 48.2 s High 24.1-36.2 [facility] Comment on above: Performed By: #### L 300.4310 ####[facility] [address] [place], [address] aPTT Coag (Bld) [Time] 27.1 s Normal 24.1-36.2 [facility] Comment on above: Performed By: #### L 300.4310, L300.3900 ####[facility] [address] [place], [address] Prothrombin Time w/INRon INR Coag (PPP) [Relative time] 1.1 {INR} Normal [facility] Comment on above: Performed By: #### L 300.4310, L300.3900 ####[facility] [address] [place], [address] PT Coag (PPP) [Time] 13.9 s Normal 11.7-14.9 [facility] Comment on above: Performed By: #### L 300.4310, L300.3900 ####[facility] [address] [place], [address] Thyroid Stim Hormone (TSH)on 01-23-2024 TSH 1.100 uIU/mL Normal 0.358-3.740 [facility] Comment on above: Performed By: #### L 501.9520, L500.2500, L500.4100, L501.5200 ####[facility] [address] [place], [address] Urine Drug Screen (VISTA)on 01-23-2024 AMPHETAMINES Negative Normal <1000 ng/mL [facility] Comment on above: Performed By: #### L 500.2500, L3300.0960, L501.9985, L505.5000 ####[facility] [address] [place], [address] BARBITIURATES Negative Normal < 200 ng/mL [facility] Comment on above: Performed By: #### L 500.2500, L3300.0960, L501.9985, L505.5000 ####[facility] [address] [place], [address] BENZODIAZIPINE Negative Normal < 200 ng/mL [facility] Comment on above: Performed By: #### L 500.2500, L3300.0960, L501.9985, L505.5000 ####[facility] [address] [place], [address] COCAINE Negative Normal < 300 ng/mL [facility] Comment on above: Performed By: #### L 500.2500, L3300.0960, L501.9985, L505.5000 ####[facility] [address] [place], [address] ECSTACY Negative Normal < 500 ng/mL [facility] Comment on above: Performed By: #### L 500.2500, L3300.0960, L501.9985, L505.5000 ####[facility] [address] [place], [address] METHADONE Negative Normal < 300 ng/mL [facility] Comment on above: Performed By: #### L 500.2500, L3300.0960, L501.9985, L505.5000 ####[facility] [address] [place], [address] OPIATES Negative Normal < 300 ng/mL [facility] Comment on above: Performed By: #### L 500.2500, L3300.0960, L501.9985, L505.5000 ####[facility] [address] [place], [address] PCP Negative Normal < 25 ng/mL [facility] Comment on above: Performed By: #### L 500.2500, L3300.0960, L501.9985, L505.5000 ####[facility] [address] [place], [address] THC Negative Normal < 50 ng/mL [facility] Comment on above: Performed By: #### L 500.2500, L3300.0960, L501.9985, L505.5000 ####[facility] [address] [place], [address] VISTA UDS PH 6 Normal [facility] Comment on above: Performed By: #### L 500.2500, L3300.0960, L501.9985, L505.5000 ####[facility] [address] [place], [address] 12 Lead EKGon 01-22-2024 12 Lead EKG Normal [facility] Acetone Serumon 01-22-2024 ACETONE SERUM SMALL Abnormal NEG [facility] Comment on above: Performed By: #### L 501.6900 ####[facility] [address] [place], [address] Bedside Glucoseon 01-22-2024 FINGERSTICK GLU 444 mg/dL High 74-106 [facility] Comment on above: Result Comment: EDUARDO JACOBO OF PATIENT CARE PER NURSING PROTOCOL Performed By: #### L 501.080 ####[facility] [address] [place], [address] FINGERSTICK GLU 488 mg/dL Invalid Interpretation Code 74-106 [facility] Comment on above: Result Comment: Dr Anna Marie martinez FollowedMANAGEMENT OF PATIENT CARE PER NURSING PROTOCOL Performed By: #### L 501.080 ####[facility] [address] [place], [address] CBC W/Diff, Automatedon 10-2 -2023 Absolute Lymph 1.01 X10 3/uL Normal 0.83-4.51 [facility] Comment on above: Performed By: #### L 501.4020, L100.0100, L500.4050 ####[facility] [address] [place], [address] Absolute Neut 10.1 X10 3/uL High 2.0-7.7 [facility] Comment on above: Performed By: #### L 501.4020, L100.0100, L500.4050 ####[facility] [address] [place], [address] Basophils/100 WBC (Bld) 0.6 % Normal 0-1 [facility] Comment on above: Performed By: #### L 501.4020, L100.0100, L500.4050 ####[facility] [address] [place], [address] Eosinophils/100 WBC (Bld) 0.1 % Normal 0-5 [facility] Comment on above: Performed By: #### L 501.4020, L100.0100, L500.4050 ####[facility] [address] [place], [address] Erythrocyte distribution width (RBC) [Ratio] 12.7 % Normal 11.6-14.6 [facility] Comment on above: Performed By: #### L 501.4020, L100.0100, L500.4050 ####[facility] [address] [place], [address] Hematocrit (Bld) [Volume fraction] 26.8 % Low 40-54 [facility] Comment on above: Performed By: #### L 501.4020, L100.0100, L500.4050 ####[facility] [address] [place], [address] Hemoglobin (Bld) [Mass/Vol] 8.6 g/dL Low 13.0-16. 5 [facility] Comment on above: Performed By: #### L 501.4020, L100.0100, L500.4050 ####[facility] [address] [place], [address] IG% 0.500 Normal 0.0-0.9 [facility] Comment on above: Result Comment: IG% - Immature Granulocytes (promyelocytes, myelocytes andmetamyelocytes) > 1% indicates that a LEFT SHIFT is Present. Performed By: #### L 501.4020, L100.0100, L500.4050 ####[facility] [address] [place], [address] Lymphocytes/100 WBC (Bld) 8.5 % Low 19-41 [facility] Comment on above: Performed By: #### L 501.4020, L100.0100, L500.4050 ####[facility] [address] [place], [address] MCH (RBC) [Entitic mass] 26.5 pg Low 27.0-32.0 [facility] Comment on above: Performed By: #### L 501.4020, L100.0100, L500.4050 ####[facility] [address] [place], [address] MCHC (RBC) [Mass/Vol] 32.1 g/dL Normal 32-36 [facility] Comment on above: Performed By: #### L 501.4020, L100.0100, L500.4050 ####[facility] [address] [place], [address] MCV (RBC) [Entitic vol] 82.5 fL Normal 80-94 [facility] Comment on above: Performed By: #### L 501.4020, L100.0100, L500.4050 ####[facility] [address] [place], [address] Monocytes/100 WBC (Bld) 5.5 % Normal 0-10 [facility] Comment on above: Performed By: #### L 501.4020, L100.0100, L500.4050 ####[facility] [address] [place], [address] Neutrophils/100 WBC (Bld) 84.8 % High 47-70 [facility] Comment on above: Performed By: #### L 501.4020, L100.0100, L500.4050 ####[facility] [address] [place], [address] Nucleated RBC (Bld) [#/Vol] 0 10*3/uL Normal 0-5 [facility] Comment on above: Performed By: #### L 501.4020, L100.0100, L500.4050 ####[facility] [address] [place], [address] Platelet mean volume (Bld) [Entitic vol] 9.6 fL Normal 6.2-12.0 [facility] Comment on above: Performed By: #### L 501.4020, L100.0100, L500.4050 ####[facility] [address] [place], [address] Platelets (Bld) [#/Vol] 340 10*3/uL Normal 150-450 [facility] Comment on above: Performed By: #### L 501.4020, L100.0100, L500.4050 ####[facility] [address] [place], [address] RBC (Bld) [#/Vol] 3.25 10*6/uL Low 4.6-6.2 [facility] Comment on above: Performed By: #### L 501.4020, L100.0100, L500.4050 ####[facility] [address] [place], [address] RDW SD 38.4 fl Normal 35.1-43.9 [facility] Comment on above: Performed By: #### L 501.4020, L100.0100, L500.4050 ####[facility] [address] [place], [address] WBC (Bld) [#/Vol] 11.9 10*3/uL High 4.4-11.0 [facility] Comment on above: Performed By: #### L 501.4020, L100.0100, L500.4050 ####[facility] [address] [place], [address] Chest PA and Lateralon 01-21 Chest PA and Lateral Normal [facility] Comprehensive Metabolic Prof ilon 01-22-2024 Albumin [Mass/Vol] 3.7 g/dL Normal 3.2-5.0 [facility] Comment on above: Order Comment: 'TROP ' Serial specimen #1, #2 or #3: 11 Performed By: #### L 501.4020, L100.0100, L500.4050 ####[facility] [address] [place], [address] Albumin/Globulin [Mass ratio] 1.0 {ratio} Normal 0.9-2.4 [facility] Comment on above: Order Comment: 'TROP ' Serial specimen #1, #2 or #3: 11 Performed By: #### L 501.4020, L100.0100, L500.4050 ####[facility] [address] [place], [address] ALK P 72 U/L Normal 45-117 [facility] Comment on above: Order Comment: 'TROP ' Serial specimen #1, #2 or #3: 11 Performed By: #### L 501.4020, L100.0100, L500.4050 ####[facility] [address] [place], [address] ALT [Catalytic activity/Vol] 31 U/L Normal 16-61 [facility] Comment on above: Order Comment: 'TROP ' Serial specimen #1, #2 or #3: 11 Performed By: #### L 501.4020, L100.0100, L500.4050 ####[facility] [address] [place], [address] AST [Catalytic activity/Vol] 20 U/L Normal 15-37 [facility] Comment on above: Order Comment: 'TROP ' Serial specimen #1, #2 or #3: 11 Performed By: #### L 501.4020, L100.0100, L500.4050 ####[facility] [address] [place], [address] Bilirubin [Mass/Vol] 0.40 mg/dL Normal 0.20-1.00 [facility] Comment on above: Order Comment: 'TROP ' Serial specimen #1, #2 or #3: 11 Result Comment: For patients on eltrombopag therapy, use of Dimension [place] TBIL is not recommended. Performed By: #### L 501.4020, L100.0100, L500.4050 ####[facility] [address] [place], [address] BUN/CRE 12.9 RATIO Normal 10-20 [facility] Comment on above: Order Comment: 'TROP ' Serial specimen #1, #2 or #3: 11 Performed By: #### L 501.4020, L100.0100, L500.4050 ####[facility] [address] [place], [address] CA,Total 9.2 mg/dL Normal 8.5-10.1 [facility] Comment on above: Order Comment: 'TROP ' Serial specimen #1, #2 or #3: 11 Performed By: #### L 501.4020, L100.0100, L500.4050 ####[facility] [address] [place], [address] Chloride [Moles/Vol] 97 mmol/L Low 98-107 [facility] Comment on above: Order Comment: 'TROP ' Serial specimen #1, #2 or #3: 11 Performed By: #### L 501.4020, L100.0100, L500.4050 ####[facility] [address] [place], [address] CO2 [Moles/Vol] 15.0 mmol/L Low 21.0-32.0 [facility] Comment on above: Order Comment: 'TROP ' Serial specimen #1, #2 or #3: 11 Performed By: #### L 501.4020, L100.0100, L500.4050 ####[facility] [address] [place], [address] Creatinine [Mass/Vol] 6.20 mg/dL High 0.70-1.30 [facility] Comment on above: Order Comment: 'TROP ' Serial specimen #1, #2 or #3: 11 Result Comment: The validity of the calculated GFR GFRAA in patients over70 years has not been determined. Clinical correlation isessential. Performed By: #### L 501.4020, L100.0100, L500.4050 ####[facility] [address] [place], [address] ECRCL 18.52 ml/min Normal [facility] Comment on above: Order Comment: 'TROP ' Serial specimen #1, #2 or #3: 11 Performed By: #### L 501.4020, L100.0100, L500.4050 ####[facility] [address] [place], [address] EST GFR - AA 13 mL/min Low >60 [facility] Comment on above: Order Comment: 'TROP ' Serial specimen #1, #2 or #3: 11 Result Comment: Afri can Swazi GFR Calc Performed By: #### L 501.4020, L100.0100, L500.4050 ####[facility] [address] [place], [address] GAP 18 High 5-15 [facility] Comment on above: Order Comment: 'TROP ' Serial specimen #1, #2 or #3: 11 Performed By: #### L 501.4020, L100.0100, L500.4050 ####[facility] [address] [place], [address] GFR/1.73 sq M.predicted among non-blacks MDRD (S/P/Bld) [Vol rate/Area] 11 mL/min/{1.73_m2} Low >60 [facility] Comment on above: Order Comment: 'TROP ' Serial specimen #1, #2 or #3: 11 Result Comment: Non- GFR Calc Performed By: #### L 501.4020, L100.0100, L500.4050 ####[facility] [address] [place], [address] Globulin (S) [Mass/Vol] 3.8 g/dL Normal 2.2-4.2 [facility] Comment on above: Order Comment: 'TROP ' Serial specimen #1, #2 or #3: 11 Performed By: #### L 501.4020, L100.0100, L500.4050 ####[facility] [address] [place], [address] Glucose [Mass/Vol] 491 mg/dL Invalid Interpretation Code 74-106 [facility] Comment on above: Order Comment: 'TROP ' Serial specimen #1, #2 or #3: 11 Result Comment: Crit ical Result(s) Called at: 23:15:15 01/22/2024 by: LAURENCE. Results read back by Ken MtzGlucose result greater than or equal to 200 mg/dLsuggests DIABETES MELLITUS per A.D.A. criteria. Performed By: #### L 501.4020, L100.0100, L500.4050 ####[facility] [address] [place], [address] Potassium [Moles/Vol] 4.4 mmol/L Normal 3.5-5.1 [facility] Comment on above: Order Comment: 'TROP ' Serial specimen #1, #2 or #3: 11 Performed By: #### L 501.4020, L100.0100, L500.4050 ####[facility] [address] [place], [address] Sodium [Moles/Vol] 130 mmol/L Low 136-145 [facility] Comment on above: Order Comment: 'TROP ' Serial specimen #1, #2 or #3: 11 Performed By: #### L 501.4020, L100.0100, L500.4050 ####[facility] [address] [place], [address] T PROT 7.5 g/dL Normal 6.4-8.2 [facility] Comment on above: Order Comment: 'TROP ' Serial specimen #1, #2 or #3: 11 Performed By: #### L 501.4020, L100.0100, L500.4050 ####[facility] [address] [place], [address] Urea nitrogen [Mass/Vol] 80 mg/dL High 7-18 [facility] Comment on above: Order Comment: 'TROP ' Serial specimen #1, #2 or #3: 11 Performed By: #### L 501.4020, L100.0100, L500.4050 ####[facility] [address] [place], [address] Emergency Department Summary on 01-22-2024 Emergency Department Summary Normal [facility] H AND P Exam - Hospitaliston 01-22-2024 H&P Exam - Hospitalist Normal [facility] L501.4020on 01-22-2024 TROPONIN-I HS 588 pg/mL Invalid Interpretation Code 3.0-78.0 [facility] Comment on above: Order Comment: 'TROP ' Serial specimen #1, #2 or #3: 11 Result Comment: Crit ical Result(s) Called at: 23:14:57 01/22/2024 by: LAURENCE. Results read back by Ken Mtz Please Note: New Test Units and Gender Specific Reference Ranges. For more information see Policy Stat Procedure Buffalo High Sensitivity Troponin (TNIH) and attachments. Performed By: #### L 501.4020, L100.0100, L500.4050 ####[facility] [address] [place], [address] Urinalysis, Completeon 01-21 BACTERIA Normal None Seen [facility] Comment on above: Order Comment: CLEAN CATCH Result Comment: Canreji elled via OM: Ordered Performed By: #### L 400.0001 ####[facility] [address] [place], [address] BILIRUBIN URINE Normal Negative [facility] Comment on above: Order Comment: CLEAN CATCH Result Comment: Dano elled via OM: Ordered Performed By: #### L 400.0001 ####[facility] [address] [place], [address] Clarity (U) Normal Clear [facility] Comment on above: Order Comment: CLEAN CATCH Result Comment: Dano elled via OM: Ordered Performed By: #### L 400.0001 ####[facility] [address] [place], [address] Color (U) Normal Yellow [facility] Comment on above: Order Comment: CLEAN CATCH Result Comment: Canc elled via OM: MD Ordered Performed By: #### L 400.0001 ####[facility] [address] [place], [address] EPI,SQUAMOUS Normal 0-5 [facility] Comment on above: Order Comment: CLEAN CATCH Result Comment: Canc elled via OM: MD Ordered Performed By: #### L 400.0001 ####[facility] [address] [place], [address] GLUCOSE, UR Normal Normal [facility] Comment on above: Order Comment: CLEAN CATCH Result Comment: Canc elled via OM: MD Ordered Performed By: #### L 400.0001 ####[facility] [address] [place], [address] KETONE UR Normal Negative [facility] Comment on above: Order Comment: CLEAN CATCH Result Comment: Canc elled via OM: MD Ordered Performed By: #### L 400.0001 ####[facility] [address] [place], [address] LEUK ESTERASE Normal Negative [facility] Comment on above: Order Comment: CLEAN CATCH Result Comment: Canc elled via OM: MD Ordered Performed By: #### L 400.0001 ####[facility] [address] [place], [address] Mucus Ql (Urine sed) Normal [facility] Comment on above: Order Comment: CLEAN CATCH Result Comment: Canc elled via OM: MD Ordered Performed By: #### L 400.0001 ####[facility] [address] [place], [address] Nitrite Ql (U) Normal Negative [facility] Comment on above: Order Comment: CLEAN CATCH Result Comment: Canc elled via OM: MD Ordered Performed By: #### L 400.0001 ####[facility] [address] [place], [address] OCCULT BLOOD-UR Normal Negative [facility] Comment on above: Order Comment: CLEAN CATCH Result Comment: Canc elled via OM: MD Ordered Performed By: #### L 400.0001 ####[facility] [address] [place], [address] pH UR Normal 5.0 - 8.0 [facility] Comment on above: Order Comment: CLEAN CATCH Result Comment: Canc elled via OM: MD Ordered Performed By: #### L 400.0001 ####[facility] [address] [place], [address] PROT DIPSTX Normal Negative [facility] Comment on above: Order Comment: CLEAN CATCH Result Comment: Canc elled via OM: MD Ordered Performed By: #### L 400.0001 ####[facility] [address] [place], [address] RBC Normal 0-5 [facility] Comment on above: Order Comment: CLEAN CATCH Result Comment: Canc elled via OM: MD Ordered Performed By: #### L 400.0001 ####[facility] [address] [place], [address] SP.GR. DIPSTX Normal 1.002-1.030 [facility] Comment on above: Order Comment: CLEAN CATCH Result Comment: Canc elled via OM: MD Ordered Performed By: #### L 400.0001 ####[facility] [address] [place], [address] UR Preservative Normal [facility] Comment on above: Order Comment: CLEAN CATCH Result Comment: Canc elled via OM: MD Ordered Performed By: #### L 400.0001 ####[facility] [address] [place], [address] UROBILI Normal Normal [facility] Comment on above: Order Comment: CLEAN CATCH Result Comment: Canc elled via OM: MD Ordered Performed By: #### L 400.0001 ####[facility] [address] [place], [address] WBC Normal 0-5 [facility] Comment on above: Order Comment: CLEAN CATCH Result Comment: Canc elled via OM: MD Ordered Performed By: #### L 400.0001 ####[facility] [address] [place], [address] BACTERIA RARE Normal None Seen [facility] Comment on above: Order Comment: COLLE CTOR TO SPECIFY Performed By: #### L 400.0001 ####[facility] [address] [place], [address] EPI,SQUAMOUS 0 SEEN Normal 0-5 [facility] Comment on above: Order Comment: RACHNA CTOR TO SPECIFY Performed By: #### L 400.0001 ####[facility] [address] [place], [address] Mucus Ql (Urine sed) 0 SEEN Normal [facility] Comment on above: Order Comment: COLLE CTOR TO SPECIFY Performed By: #### L 400.0001 ####[facility] [address] [place], [address] RBC 0 SEEN Normal 0-5 [facility] Comment on above: Order Comment: COLLE CTOR TO SPECIFY Performed By: #### L 400.0001 ####[facility] [address] [place], [address] WBC 0 SEEN Normal 0-[address] [place] [address] Comment on above: Order Comment: COLLE CTOR TO SPECIFY Performed By: #### L 400.0001 ####[facility] [address] [place], [address] Venous Blood Gason 4 Blood Gas Type ARMANI Normal [facility] Comment on above: Performed By: #### L 9000.0810 ####[facility] [address] [place], [address] CO2 [Moles/Vol] 16 mmol/L Low 23-33 [facility] Comment on above: Performed By: #### L 9000.0810 ####[facility] [address] [place], [address] HCO3 (Bld) [Moles/Vol] 15 mmol/L Low 22-26 [facility] Comment on above: Performed By: #### L 9000.0810 ####[facility] [address] [place], [address] O2 Delivery Dev Room Air Normal [facility] Comment on above: Performed By: #### L 9000.0810 ####[facility] [address] [place], [address] SITE Not entered Normal [facility] Comment on above: Performed By: #### L 9000.0810 ####[facility] [address] [place], [address] VBG BE -10 mmol/L Low -1.0-3.5 [facility] Comment on above: Performed By: #### L 9000.0810 ####[facility] [address] [place], [address] VBG pCO2 28.2 mmHg Low 41-51 [facility] Comment on above: Performed By: #### L 9000.0810 ####[facility] [address] [place], [address] VBG pH 7.35 Normal 7.32-7.42 [facility] Comment on above: Performed By: #### L 9000.0810 ####[facility] [address] [place], [address] VBG PO2 36 mmHg Normal 25-40 [facility] Comment on above: Performed By: #### L 9000.0810 ####[facility] [address] [place], [address] VBG SO2 68 Normal 50-70 [facility] Comment on above: Performed By: #### L 9000.0810 ####[facility] [address] [place], [address] XR TIBIA/FIBULA 2 VIEWS LEFT on 12-21-2023 [...] 12/21/2023 2:02:00 AM Ordering Provider: Y REFERRING [facility] MAIN XR TIBIA/FIBULA 2 VIEWS [facility] 12-21-2023 XR TIBIA/FIBULA 2 VIEWS RIGHT [...] 12/21/2023 2:02:00 AM Ordering Provider: NATALYAY REFERRING [facility] MAIN CT Abdomen and Pelvis WO con traston 08-28-2023 IMPRESSION: Vascular atherosclerotic calcifications as described. Surgical Supply Assistant: NEW Transcribe Date/Time: Aug 28 2023 1:35P Dictated by : JAKOB QUINTERO DO This examination was interpreted and the report reviewed and electronically signed by: SUSHIL ETIENNE MD on Aug 28 2023 2:41PM [facility] DIVISION OF RADIOLOGY * * *Final Report* * * DATE OF EXAM: Aug 28 2023 11:40AM [facility] [place] 0531 - CT ABD/PEL WO IVCON / [...] No additional findings. DIVISION OF RADIOLOGY Provider, [facility] [place] - 08/28/2023 * * *Final Report* * * DATE OF EXAM: Aug 28 2023 11:40AM [facility] [place] 0531 - CT ABD/PEL WO IVCON / [...] IMPRESSION IMPRESSION: Vascular atherosclerotic calcifications as described. Surgical Supply Assistant: NEW Transcribe Date/Time: Aug 28 2023 1:35P Dictated by : JAKOB QUINTERO DO This examination was interpreted and the report reviewed and electronically signed by: SUSHIL ETIENNE MD on Aug 28 2023 2:41PM EST [facility] Radiology Study observation (narrative) [facility] CT Abdomen and Pelvis WO con trastOrdered By: [facility] Provider on 08-28-2023 [facility] Thin prep Papanicolaou smear with manual screeningOrdered By: Caleb Vargas on 08-01-2023 Thin prep Papanicolaou smear with manual screening 93 mg/dL 74-106 [facility] Comment on above: MANAGEMENT OF PATIEN T CARE PER NURSING PROTOCOL Basophil percentageOrdered B y: Daisy Diaz on 07-23-2023 Basophil percentage 5.7 mg/dL 2.5-4.9 [facility] Chloride [Moles/Vol] 105 mmol/L 98-107 [facility] Glucose [Mass/Vol] 253 mg/dL 74-106 [facility] Comment on above: Glucose result great er than or equal to 200 mg/dLsuggests DIABETES MELLITUS per A.D.A. criteria. Potassium [Moles/Vol] 5.3 mmol/L 3.5-5.1 [facility] Sodium [Moles/Vol] 135 mmol/L 136-145 [facility] Laboratory - Chemistry and C hemistry - challengeOrdered By: Daisy Diaz on 07-23-2023 CO2 [Moles/Vol] 23.0 mmol/L 21.0-32.0 [facility] Urea nitrogen/Creatinine [Mass ratio] 14.7 mg/mg 10-20 [facility] No Panel InformationOrdered By: Daisy Diaz on 07-23-2023 Estimated GFR (MDRD) Amer 16 mL/min >60 [facility] Comment on above: GFR Calc Estimated GFR (MDRD) Non-Af Amer 13 mL/min >60 [facility] Comment on above: Non- GFR Calc Serum or plasma calcium jessie urement (mass/volume)Ordered By: Daisy Diaz on 07-23-2023 Calcium [Mass/Vol] 9.4 mg/dL 8.5-10.1 [facility] Serum or plasma creatinine m easurement (mass/volume)Ordered By: Daisy Diaz on 07-23-2023 Creatinine [Mass/Vol] 5.09 mg/dL 0.70-1.30 [facility] Comment on above: The validity of the calculated GFR & GFRAA in patients over 70 years has not been determined. Clinical correlation is essential. Serum or plasma urea nitroge n measurement (mass/volume)Ordered By: Daisy Diaz on 07-23-2023 Urea nitrogen [Mass/Vol] 75 mg/dL 7-18 [facility] Thin prep Papanicolaou smear with manual screeningOrdered By: Daisy Diaz on 07-23-2023 Thin prep Papanicolaou smear with manual screening 3.3 g/dL 3.2-5.0 [facility] Absolute lymphocyte countOrd ered By: Nelly Gross on 07-03-2023 Lymphocytes Auto (Unsp spec) [#/Vol] 2.01 10*3/uL 0.83-4.51 [facility] Automated lymphocyte count a s percentage of total leukocytesOrdered By: Nelly Gross on 07-03-2023 Lymphocytes/100 WBC Auto (Unsp spec) 27.4 % 19-41 [facility] Basophil percentageOrdered B y: Nelly Gross on 07-03-2023 Basophils/100 WBC (Bld) 1.0 % 0-1 [facility] Eosinophils/100 WBC (Bld) 5.0 % 0-5 [facility] Hemoglobin (Bld) [Mass/Vol] 9.7 g/dL 13.0-16. 5 [facility] Monocytes/100 WBC (Bld) 11.9 % 0-10 [facility] Neutrophils (Bld) [#/Vol] 4.0 10*3/uL 2.0-7.7 [facility] Neutrophils/100 WBC (Bld) 54.4 % 47-70 [facility] WBC (Bld) [#/Vol] 7.3 10*3/uL 4.4-11.0 [facility] Basophil percentageOrdered B y: Louis Koehler on 07-03-2023 Chloride [Moles/Vol] 111 mmol/L 98-107 [facility] Glucose [Mass/Vol] 110 mg/dL 74-106 [facility] Comment on above: Fasting Glucose resu lt from 100 to 125 mg/dL suggests IMPAIRED HOMEOSTASIS per A.D.A. criteria. Potassium [Moles/Vol] 3.9 mmol/L 3.5-5.1 [facility] Sodium [Moles/Vol] 140 mmol/L 136-145 [facility] Determination of erythrocyte mean corpuscular volume (MCV)Ordered By: Nelly Gross on 07-03-2023 MCV (RBC) [Entitic vol] 82.4 fL 80-94 [facility] Erythrocyte distribution wid th ratioOrdered By: Nelly Gross on 07-03-2023 Erythrocyte distribution width (RBC) [Ratio] 13.3 % 11.6-14.6 [facility] Erythrocyte distribution wid th standard deviationOrdered By: Nelly Gross on 07-03-2023 Erythrocyte distribution width (RBC) [Entitic vol] 40.3 fL 35.1-43.9 [facility] Hematocrit Auto (Bld) [Volum e fraction]Ordered By: Nelly Gross on 07-03-2023 Hematocrit (Bld) [Volume fraction] 29.4 % 40-54 [facility] Immature granulocytes/100 WB C Auto (Bld)Ordered By: Nelly Gross on 07-03-2023 Immature granulocytes/100 WBC (Bld) 0.300 % 0.0-0.9 [facility] Comment on above: IG% - Immature Granu locytes (promyelocytes, myelocytes and metamyelocytes) > 1% indicates that a LEFT SHIFT is Present. Laboratory - Chemistry and C hemistry - challengeOrdered By: Louis Koehler on 07-03-2023 CO2 [Moles/Vol] 23.0 mmol/L 21.0-32.0 [facility] Urea nitrogen/Creatinine [Mass ratio] 10.1 mg/mg 10-20 [facility] Laboratory - Hematology and Cell countsOrdered By: Nelly Gross on 07-03-2023 MCH (RBC) [Entitic mass] 27.2 pg 27.0-32.0 [facility] MCHC (RBC) [Mass/Vol] 33.0 g/dL 32-36 [facility] Nucleated RBC/100 WBC (Bld) [Ratio] 0 % 0-5 [facility] Platelet mean volume (Bld) [Entitic vol] 8.9 fL 6.2-12.0 [facility] Platelets (Bld) [#/Vol] 286 10*3/uL 150-450 [facility] No Panel InformationOrdered By: Louis Koehler on 07-03-2023 Estimated Creatinine Clearance Calc 24.30 ml/min [facility] Estimated GFR (MDRD) Amer 17 mL/min >60 [facility] Comment on above: GFR Calc Estimated GFR (MDRD) Non-Af Amer 14 mL/min >60 [facility] Comment on above: Non- GFR Calc RBC Auto (Bld) [#/Vol]Ordere d By: Nelly Gross on 07-03-2023 RBC (Bld) [#/Vol] 3.57 10*6/uL 4.6-6.2 [facility] Serum or plasma calcium jessie urement (mass/volume)Ordered By: Louis Koehler on 07-03-2023 Calcium [Mass/Vol] 9.0 mg/dL 8.5-10.1 [facility] Serum or plasma creatinine m easurement (mass/volume)Ordered By: Louis Koehler on 07-03-2023 Creatinine [Mass/Vol] 4.94 mg/dL 0.70-1.30 [facility] Comment on above: The validity of the calculated GFR & GFRAA in patients over 70 years has not been determined. Clinical correlation is essential. Serum or plasma urea nitroge n measurement (mass/volume)Ordered By: Louis Koehler on 07-03-2023 Urea nitrogen [Mass/Vol] 50 mg/dL 7-18 [facility] Thin prep Papanicolaou smear with manual screeningOrdered By: Louis Koehler on 07-03-2023 Thin prep Papanicolaou smear with manual screening 6 5-15 [facility] Absolute lymphocyte countOrd ered By: Louis Koehler on 07-02-2023 Lymphocytes Auto (Unsp spec) [#/Vol] 1.38 10*3/uL 0.83-4.51 [facility] Automated lymphocyte count a s percentage of total leukocytesOrdered By: Louis Koehler on 07-02-2023 Lymphocytes/100 WBC Auto (Unsp spec) 14.4 % 19-41 [facility] Basophil percentageOrdered B y: Louis Koehler on 07-02-2023 Basophils/100 WBC (Bld) 0.8 % 0-1 [facility] Chloride [Moles/Vol] 112 mmol/L 98-107 [facility] Cholesterol [Mass/Vol] 170 mg/dL <200 [facility] Comment on above: <200 mg/dL Desirable 200-240 mg/dL Borderline >240 mg/dL High Risk Eosinophils/100 WBC (Bld) 2.9 % 0-5 [facility] Glucose [Mass/Vol] 151 mg/dL 74-106 [facility] Comment on above: Fasting Glucose resu lt greater than or equal to 126 mg/dL suggests DIABETES MELLITUS per A.D.A. criteria. Hemoglobin (Bld) [Mass/Vol] 9.0 g/dL 13.0-16. 5 [facility] Monocytes/100 WBC (Bld) 8.6 % 0-10 [facility] Neutrophils (Bld) [#/Vol] 7.0 10*3/uL 2.0-7.7 [facility] Neutrophils/100 WBC (Bld) 72.9 % 47-70 [facility] Potassium [Moles/Vol] 4.1 mmol/L 3.5-5.1 [facility] Sodium [Moles/Vol] 141 mmol/L 136-145 [facility] Triglyceride [Mass/Vol] 171 mg/dL <199 [facility] Comment on above: The drugs N-Acetylcy steine and Metamizole may falsely depress this assay.Serum Triglycerides Reference Interval Normal <150 mg/dL Borderline high 150 - 199 mg/dL High 200 - 499 mg/dL Very High > or = 500 mg/dL WBC (Bld) [#/Vol] 9.6 10*3/uL 4.4-11.0 [facility] Determination of erythrocyte mean corpuscular volume (MCV)Ordered By: Louis Koehler on 07-02-2023 MCV (RBC) [Entitic vol] 80.7 fL 80-94 [facility] Erythrocyte distribution wid th ratioOrdered By: Louis Koehler on 07-02-2023 Erythrocyte distribution width (RBC) [Ratio] 13.5 % 11.6-14.6 [facility] Erythrocyte distribution wid th standard deviationOrdered By: Louis Koehler on 07-02-2023 Erythrocyte distribution width (RBC) [Entitic vol] 39.6 fL 35.1-43.9 [facility] Hematocrit Auto (Bld) [Volum e fraction]Ordered By: Louis Koehler on 07-02-2023 Hematocrit (Bld) [Volume fraction] 27.2 % 40-54 [facility] Immature granulocytes/100 WB C Auto (Bld)Ordered By: Louis Koehler on 07-02-2023 Immature granulocytes/100 WBC (Bld) 0.400 % 0.0-0.9 [facility] Comment on above: IG% - Immature Granu locytes (promyelocytes, myelocytes and metamyelocytes) > 1% indicates that a LEFT SHIFT is Present. Laboratory - Chemistry and C hemistry - challengeOrdered By: Louis Koehler on 07-02-2023 Cholesterol in HDL [Mass/Vol] 58 mg/dL >40 [facility] Comment on above: The drugs N-Acetylcy steine and Metamizole may falsely depress this assay. Reference Range HDL <40 mg/dL Low HDL Cholesterol HDL >or= 60 mg/dL High HDL Cholesterol Cholesterol in LDL [Mass/Vol] 78 mg/dL 0-130 [facility] CO2 [Moles/Vol] 22.0 mmol/L 21.0-32.0 [facility] Urea nitrogen/Creatinine [Mass ratio] 11.1 mg/mg 10-20 [facility] Laboratory - Hematology and Cell countsOrdered By: Louis Koehler on 07-02-2023 MCH (RBC) [Entitic mass] 26.7 pg 27.0-32.0 [facility] MCHC (RBC) [Mass/Vol] 33.1 g/dL 32-36 [facility] Nucleated RBC/100 WBC (Bld) [Ratio] 0 % 0-5 [facility] Platelet mean volume (Bld) [Entitic vol] 9.0 fL 6.2-12.0 [facility] Platelets (Bld) [#/Vol] 293 10*3/uL 150-450 [facility] No Panel InformationOrdered By: Louis Koehler on 07-02-2023 Estimated Creatinine Clearance Calc 26.68 ml/min [facility] Estimated GFR (MDRD) Amer 19 mL/min >60 [facility] Comment on above: GFR Calc Estimated GFR (MDRD) Non-Af Amer 15 mL/min >60 [facility] Comment on above: Non- GFR Calc Troponin I High Sensitivity 49 pg/mL 3.0-78.0 [facility] Comment on above: Please Note: New Essence t Units and Gender Specific Reference Ranges. For more information see Policy Stat Procedure [place] High Sensitivity Troponin (TNIH) and attachments. VLDL Cholesterol 34 mg/dL 5-40 [facility] RBC Auto (Bld) [#/Vol]Ordere d By: Louis Koehler on 07-02-2023 RBC (Bld) [#/Vol] 3.37 10*6/uL 4.6-6.2 [facility] Serum or plasma calcium jessie urement (mass/volume)Ordered By: Louis Koehler on 07-02-2023 Calcium [Mass/Vol] 9.1 mg/dL 8.5-10.1 [facility] Serum or plasma creatinine m easurement (mass/volume)Ordered By: Louis Koehler on 07-02-2023 Creatinine [Mass/Vol] 4.50 mg/dL 0.70-1.30 [facility] Comment on above: The validity of the calculated GFR & GFRAA in patients over 70 years has not been determined. Clinical correlation is essential. Serum or plasma thyroid stim ulating hormone (TSH) measurement (units/volume)Ordered By: Louis Koehler on 07-02-2023 TSH Qn 3.33 uIU/mL 0.358-3.74 [facility] Serum or plasma urea nitroge n measurement (mass/volume)Ordered By: Louis Koehler on 07-02-2023 Urea nitrogen [Mass/Vol] 50 mg/dL 7-18 [facility] Thin prep Papanicolaou smear with manual screeningOrdered By: Louis Koehler on 07-02-2023 Thin prep Papanicolaou smear with manual screening 7 5-15 [facility] Absolute lymphocyte countOrd ered By: Laurie Elizalde on 07-01-2023 Lymphocytes Auto (Unsp spec) [#/Vol] 1.27 10*3/uL 0.83-4.51 [facility] Automated lymphocyte count a s percentage of total leukocytesOrdered By: Laurie Elizalde on 07-01-2023 Lymphocytes/100 WBC Auto (Unsp spec) 11.7 % 19-41 [facility] Basophil percentageOrdered B y: Louis Koehler on 07-01-2023 Basophil percentage 0 SEEN /hpf 0-5 [facility] Basophil percentageOrdered B y: Laurie Elizalde on 07-01-2023 Basophil percentage 4.2 mg/dL 2.5-4.9 [facility] Basophils/100 WBC (Bld) 0.6 % 0-1 [facility] Chloride [Moles/Vol] 108 mmol/L 98-107 [facility] Eosinophils/100 WBC (Bld) 1.3 % 0-5 [facility] Glucose [Mass/Vol] 285 mg/dL 74-106 [facility] Comment on above: Glucose result great er than or equal to 200 mg/dLsuggests DIABETES MELLITUS per A.D.A. criteria. Hemoglobin (Bld) [Mass/Vol] 9.9 g/dL 13.0-16. 5 [facility] Monocytes/100 WBC (Bld) 8.3 % 0-10 [facility] Neutrophils (Bld) [#/Vol] 8.5 10*3/uL 2.0-7.7 [facility] Neutrophils/100 WBC (Bld) 77.8 % 47-70 [facility] Potassium [Moles/Vol] 4.8 mmol/L 3.5-5.1 [facility] Sodium [Moles/Vol] 135 mmol/L 136-145 [facility] WBC (Bld) [#/Vol] 10.9 10*3/uL 4.4-11.0 [facility] Bilirubin Test strip Ql (U)O rdered By: Louis Koehler on 07-01-2023 Bilirubin Ql (U) Negative Negative [facility] Determination of erythrocyte mean corpuscular volume (MCV)Ordered By: Laurie Elizalde on 07-01-2023 MCV (RBC) [Entitic vol] 82.4 fL 80-94 [facility] Erythrocyte distribution wid th ratioOrdered By: Laurie Elizalde on 07-01-2023 Erythrocyte distribution width (RBC) [Ratio] 13.4 % 11.6-14.6 [facility] Erythrocyte distribution wid th standard deviationOrdered By: Laurie Elizalde on 07-01-2023 Erythrocyte distribution width (RBC) [Entitic vol] 40.4 fL 35.1-43.9 [facility] Hematocrit Auto (Bld) [Volum e fraction]Ordered By: Laurie Elizalde on 07-01-2023 Hematocrit (Bld) [Volume fraction] 30.0 % 40-54 [facility] Immature granulocytes/100 WB C Auto (Bld)Ordered By: Laurie Elizalde on 07-01-2023 Immature granulocytes/100 WBC (Bld) 0.300 % 0.0-0.9 [facility] Comment on above: IG% - Immature Granu locytes (promyelocytes, myelocytes and metamyelocytes) > 1% indicates that a LEFT SHIFT is Present. Ketones Test strip Ql (U)Ord ered By: Louis Koehler on 07-01-2023 Ketones Ql (U) Negative Negative [facility] Laboratory - Chemistry and C hemistry - challengeOrdered By: Laurie Elizalde on 07-01-2023 CO2 [Moles/Vol] 20.0 mmol/L 21.0-32.0 [facility] Magnesium [Mass/Vol] 2.1 mg/dL 1.6-2.6 [facility] Urea nitrogen/Creatinine [Mass ratio] 11.3 mg/mg 10-20 [facility] Laboratory - Hematology and Cell countsOrdered By: Laurie Elizalde on 07-01-2023 MCH (RBC) [Entitic mass] 27.2 pg 27.0-32.0 [facility] MCHC (RBC) [Mass/Vol] 33.0 g/dL 32-36 [facility] Nucleated RBC/100 WBC (Bld) [Ratio] 0 % 0-5 [facility] Platelet mean volume (Bld) [Entitic vol] 9.3 fL 6.2-12.0 [facility] Platelets (Bld) [#/Vol] 329 10*3/uL 150-450 [facility] Mucus LM Ql (Urine sed)Order ed By: Louis Koehler on 07-01-2023 Mucus Ql (Urine sed) 0 SEEN /hpf [facility] Nitrite Test strip Ql (U)Ord ered By: Louis Koehler on 07-01-2023 Nitrite Ql (U) Negative Negative [facility] No Panel InformationOrdered By: Louis Koehler on 07-01-2023 Urine RBC 0-5 SEEN /hpf 0-5 [facility] No Panel InformationOrdered By: Laurie Elizalde on 07-01-2023 Estimated Creatinine Clearance Calc 25.85 ml/min [facility] Estimated GFR (MDRD) Amer 18 mL/min >60 [facility] Comment on above: GFR Calc Estimated GFR (MDRD) Non-Af Amer 15 mL/min >60 [facility] Comment on above: Non- GFR Calc Troponin I High Sensitivity 44 pg/mL 3.0-78.0 [facility] Comment on above: Please Note: New Essence t Units and Gender Specific Reference Ranges. For more information see Policy Stat Procedure [place] High Sensitivity Troponin (TNIH) and attachments. Protein Test strip Ql (U)Ord ered By: Louis Koehler on 07-01-2023 Protein Ql (U) 100 mg/dl Negative [facility] RBC Auto (Bld) [#/Vol]Ordere d By: Laurie Elizalde on 07-01-2023 RBC (Bld) [#/Vol] 3.64 10*6/uL 4.6-6.2 [facility] Serum or plasma calcium jessie urement (mass/volume)Ordered By: Laurie Elizalde on 07-01-2023 Calcium [Mass/Vol] 9.2 mg/dL 8.5-10.1 [facility] Serum or plasma creatinine m easurement (mass/volume)Ordered By: Laurie Elizalde on 07-01-2023 Creatinine [Mass/Vol] 4.68 mg/dL 0.70-1.30 [facility] Comment on above: The validity of the calculated GFR & GFRAA in patients over 70 years has not been determined. Clinical correlation is essential. Serum or plasma urea nitroge n measurement (mass/volume)Ordered By: Laurie Elizalde on 07-01-2023 Urea nitrogen [Mass/Vol] 53 mg/dL 7-18 [facility] Squamous epithelial cells de tection in urine sediment by light microscopyOrdered By: Louis Koehler on 07-01-2023 Epithelial cells.squamous LM Ql (Urine sed) 0 SEEN /hpf 0-5 [facility] Thin prep Papanicolaou smear with manual screeningOrdered By: Laurie Elizalde on 07-01-2023 Thin prep Papanicolaou smear with manual screening 7 5-15 [facility] Urine blood detectionOrdered By: Louis Koehler on 07-01-2023 RBC Ql (U) 25 /ul Negative [facility] Urine clarityOrdered By: Cindy Koehler on 07-01-2023 Clarity (U) Clear Clear [facility] Urine color determinationOrd ered By: Louis Koehler on 07-01-2023 Color (U) Straw Yellow [facility] Urine glucose detectionOrder ed By: Louis Koehler on 07-01-2023 Glucose Ql (U) Normal mg/dl Normal [facility] Urine leukocyte esterase det ection by dipstickOrdered By: Louis Koehler on 07-01-2023 Leukocyte esterase Test strip Ql (U) Negative Negative [facility] Urine pHOrdered By: Louis Koehler on 07-01-2023 pH (U) 6.0 [pH] 5.0 - 8.0 [facility] Urine sediment bacteria coun t by microscopy (number/high power field)Ordered By: Louis Koehler on 07-01-2023 Bacteria LM.HPF (Urine sed) [#/Area] 0 /[HPF] None Seen [facility] Urine specific gravity measu rementOrdered By: Louis Koehler on 07-01-2023 Specific gravity (U) [Rel density] 1.010 1.002-1.030 [facility] Urine urobilinogen measureme ntOrdered By: Louis Koehler on 07-01-2023 Urobilinogen Ql (U) Normal mg/dl Normal [facility] Albumin Elph [Mass/Vol]Order ed By: Daisy Diaz on 03-29-2024 Albumin [Mass/Vol] 3.1 g/dL 2.9-4.4 [facility] Atypical P-ANCA titerOrdered By: Daisy Diaz on 06-27-2023 Neutrophil cytoplasmic Ab.perinuclear.atypical IF (S) [Titer] <1:20 titer Neg:<1:20 [facility] Comment on above: The atypical pANCA p attern has been observed in asignificant percentage of patients with ulcerative colitis,primary sclerosing cholangitis and autoimmune hepatitis.Performed at: [facility] [employer] [id number] Director: Dhruv Lujan PhD, Phone: [phone] Basophil percentageOrdered B y: Daisy Diaz on 06-27-2023 Basophil percentage 0-5 SEEN /hpf 0-5 [facility] Basophil percentage 4.5 mg/dL 2.5-4.9 [facility] Chloride [Moles/Vol] 115 mmol/L 98-107 [facility] Glucose [Mass/Vol] 62 mg/dL 74-106 [facility] Hemoglobin (Bld) [Mass/Vol] 10.2 g/dL 13.0-16. 5 [facility] Potassium [Moles/Vol] 4.7 mmol/L 3.5-5.1 [facility] Sodium [Moles/Vol] 141 mmol/L 136-145 [facility] WBC (Bld) [#/Vol] 8.9 10*3/uL 4.4-11.0 [facility] Bilirubin Test strip Ql (U)O rdered By: Daisy Diaz on 06-27-2023 Bilirubin Ql (U) Negative Negative [facility] Determination of erythrocyte mean corpuscular volume (MCV)Ordered By: Daisy Diaz on 06-27-2023 MCV (RBC) [Entitic vol] 82.1 fL 80-94 [facility] Erythrocyte distribution wid th ratioOrdered By: Daisy Diaz on 06-27-2023 Erythrocyte distribution width (RBC) [Ratio] 13.5 % 11.6-14.6 [facility] Erythrocyte distribution wid th standard deviationOrdered By: Daisy Diaz on 06-27-2023 Erythrocyte distribution width (RBC) [Entitic vol] 40.1 fL 35.1-43.9 [facility] Hematocrit Auto (Bld) [Volum e fraction]Ordered By: Daisy Diaz on 06-27-2023 Hematocrit (Bld) [Volume fraction] 31.1 % 40-54 [facility] Ketones Test strip Ql (U)Ord ered By: Daisy Diaz on 06-27-2023 Ketones Ql (U) Negative Negative [facility] Laboratory - Chemistry and C hemistry - challengeOrdered By: Daisy Diaz on 06-27-2023 CO2 [Moles/Vol] 21.0 mmol/L 21.0-32.0 [facility] Urea nitrogen/Creatinine [Mass ratio] 8.5 mg/mg 10-20 [facility] Laboratory - Hematology and Cell countsOrdered By: Daisy Diaz on 06-27-2023 MCH (RBC) [Entitic mass] 26.9 pg 27.0-32.0 [facility] MCHC (RBC) [Mass/Vol] 32.8 g/dL 32-36 [facility] Platelet mean volume (Bld) [Entitic vol] 9.0 fL 6.2-12.0 [facility] Platelets (Bld) [#/Vol] 325 10*3/uL 150-450 [facility] Mucus LM Ql (Urine sed)Order ed By: Daisy Diaz on 06-27-2023 Mucus Ql (Urine sed) 0 SEEN /hpf [facility] Nitrite Test strip Ql (U)Ord ered By: Daisy Diaz on 06-27-2023 Nitrite Ql (U) Negative Negative [facility] No Panel InformationOrdered By: Daisy Diaz on 06-27-2023 Addendum Document Comment . [facility] Comment on above: The SPE pattern demo nstrates elevation of regionscontaining acute phase proteins suggesting anacute/subacute inflammatory response. Some conditions inwhich this pattern has been observed include: bacterial,viral or parasitic infection; mechanical, physical orchemical trauma; and cardiac failure. The gamma globulinregion is unremarkable and evidence of monoclonal proteinis not apparent. [id number] 0.3 g/dL 0.0-0.4 [facility] [id number]-[id number] 1.2 g/dL 0.4-1.0 [facility] Estimated GFR (MDRD) Amer 19 mL/min >60 [facility] Comment on above: GFR Calc Estimated GFR (MDRD) Non-Af Amer 16 mL/min >60 [facility] Comment on above: Non- GFR Calc Gamma Globulins 0.6 g/dL 0.4-1.8 [facility] Parathyroid Hormone (Intact) 232.1 pg/mL 18.4-80.1 [facility] Urine RBC 0 SEEN /hpf 0-5 [facility] Vitamin D 25-Hydroxy 24.2 ng/mL [facility] Comment on above: Vitamin D 25(OH) Sta tus Range Deficiency <20 ng/mL (50nmol/L) Insufficiency 20 - 30 ng/mL (50 - 75 nmol/L) Sufficiency 30 - 100 ng/mL (75 - 250 nmol/L) Toxicity >100 ng/mL (>250 nmol/L) Protein Fractions Elph [Inte rp]Ordered By: Daisy Diaz on 06-27-2023 Protein Fractions [Interp] Comment . [facility] Comment on above: Protein electrophore sis scan will follow via computer,mail, or refueling ramp supervisor delivery. Protein Test strip Ql (U)Ord ered By: Daisy Diaz on 06-27-2023 Protein Ql (U) 500 mg/dl Negative [facility] RBC Auto (Bld) [#/Vol]Ordere d By: Daisy Diaz on 06-27-2023 RBC (Bld) [#/Vol] 3.79 10*6/uL 4.6-6.2 [facility] Serum DNA double strand anti body assay (units/volume)Ordered By: Daisy Diaz on 06-27-2023 DNA double strand Ab Qn (S) 1 [IU]/mL 0-9 [facility] Comment on above: Negative <5 Equivoca l 5 - 9 Positive >9Performed at: - [facility] [id number] Director: Dhruv Lujan PhD, Phone: [phone] Serum albumin to globulin ra brayan by protein electrophoresisOrdered By: Daisy Diaz on 06-27-2023 Albumin/Globulin Elph [Mass ratio] 1.1 0.7-1.7 [facility] Serum classic neutrophil cyt oplasmic antibody assay (units/volume)Ordered By: Daisy Diaz on 06-27-2023 Neutrophil cytoplasmic Ab.classic Qn (S) <1:20 titer Neg:<1:20 [facility] Serum globulin measurement ( mass/volume)Ordered By: Daisy Diaz on 06-27-2023 Globulin (S) [Mass/Vol] 2.9 g/dL 2.2-3.9 [facility] Serum or plasma beta globuli n measurement by electrophoresis (mass/volume)Ordered By: Daisy Diaz on 06-27-2023 Beta globulin Elph [Mass/Vol] 0.8 g/dL 0.7-1.3 [facility] Serum or plasma calcium jessie urement (mass/volume)Ordered By: Daisy Diaz on 06-27-2023 Calcium [Mass/Vol] 9.4 mg/dL 8.5-10.1 [facility] Serum or plasma creatinine m easurement (mass/volume)Ordered By: Daisy Diaz on 06-27-2023 Creatinine [Mass/Vol] 4.35 mg/dL 0.70-1.30 [facility] Comment on above: The validity of the calculated GFR & GFRAA in patients over 70 years has not been determined. Clinical correlation is essential. Serum or plasma protein mono clonal measurement by electrophoresis (mass/volume)Ordered By: Daisy Daiz on 06-27-2023 Protein.monoclonal Elph [Mass/Vol] Not Observed g/dL Not Observed [facility] Serum or plasma urea nitroge n measurement (mass/volume)Ordered By: Daisy Diaz on 06-27-2023 Urea nitrogen [Mass/Vol] 37 mg/dL 7-18 [facility] Serum perinuclear neutrophil cytoplasmic antibody titer by immunofluorescenceOrdered By: Daisy Diaz on 06-27-2023 Neutrophil cytoplasmic Ab.perinuclear IF (S) [Titer] <1:20 titer Neg:<1:20 [facility] Comment on above: The presence of posi tive fluorescence exhibiting P-ANCA orC-ANCA patterns alone is not specific for the diagnosis ofWegener's Granulomatosis (WG) or microscopic polyangiitis.Decisions about treatment should not be based solely onANCA IFA results. The [employer] ANCA Group Consensusrecommends follow up testing of positive sera with both LA-3 and MPO-ANCA enzyme immunoassays. As many as 5% serumsamples are positive only by EIA. Ref. AM J Clin [id number];111:507-513. Squamous epithelial cells de tection in urine sediment by light microscopyOrdered By: Daisy Diaz on 06-27-2023 Epithelial cells.squamous LM Ql (Urine sed) 0-5 SEEN /hpf 0-5 [facility] Thin prep Papanicolaou smear with manual screeningOrdered By: Daisy Diaz on 06-27-2023 Thin prep Papanicolaou smear with manual screening 3.0 g/dL 3.2-5.0 [facility] Total protein bloodOrdered B y: Daisy Diaz on 06-27-2023 Protein [Mass/Vol] 6.0 g/dL 6.0-8.5 [facility] Urine blood detectionOrdered By: Daisy Diaz on 06-27-2023 RBC Ql (U) 25 /ul Negative [facility] Urine clarityOrdered By: Mann Diaz on 06-27-2023 Clarity (U) Clear Clear [facility] Urine color determinationOrd ered By: Daisy Diaz on 06-27-2023 Color (U) Straw Yellow [facility] Urine glucose detectionOrder ed By: Daisy Diaz on 06-27-2023 Glucose Ql (U) 100 mg/dl Normal [facility] Urine leukocyte esterase det ection by dipstickOrdered By: Daisy Diaz on 06-27-2023 Leukocyte esterase Test strip Ql (U) Negative Negative [facility] Urine pHOrdered By: Mamta Diaz on 06-27-2023 pH (U) 6.0 [pH] 5.0 - 8.0 [facility] Urine sediment bacteria coun t by microscopy (number/high power field)Ordered By: Daisy Diaz on 06-27-2023 Bacteria LM.HPF (Urine sed) [#/Area] 0 /[HPF] None Seen [facility] Urine specific gravity measu rementOrdered By: Daisy Diaz on 06-27-2023 Specific gravity (U) [Rel density] 1.015 1.002-1.030 [facility] Urine urobilinogen measureme ntOrdered By: Daisy Diaz on 06-27-2023 Urobilinogen Ql (U) Normal mg/dl Normal [facility] Basophil percentageOrdered B y: Kendra Pierce on 05-16-2023 Bilirubin [Mass/Vol] 0.60 mg/dL 0.20-1.00 [facility] Comment on above: For patients on eltr ombopag therapy, use of Dimension [place] TBIL is not recommended. Chloride [Moles/Vol] 110 mmol/L 98-107 [facility] Glucose [Mass/Vol] 90 mg/dL 74-106 [facility] Potassium [Moles/Vol] 4.7 mmol/L 3.5-5.1 [facility] Protein [Mass/Vol] 6.5 g/dL 6.4-8.2 [facility] Sodium [Moles/Vol] 139 mmol/L 136-145 [facility] Laboratory - Chemistry and C hemistry - challengeOrdered By: Kendra Pierce on 05-16-2023 Albumin/Globulin [Mass ratio] 0.7 {ratio} 0.9-2.4 [facility] ALP [Catalytic activity/Vol] 83 U/L 45-117 [facility] ALT [Catalytic activity/Vol] 27 U/L 16-61 [facility] CO2 [Moles/Vol] 26.0 mmol/L 21.0-32.0 [facility] Globulin (S) [Mass/Vol] 3.8 g/dL 2.2-4.2 [facility] Urea nitrogen/Creatinine [Mass ratio] 10.4 mg/mg 10-20 [facility] No Panel InformationOrdered By: Kendra Pierce on 05-16-2023 Estimated GFR (MDRD) Amer 21 mL/min >60 [facility] Comment on above: GFR Calc Estimated GFR (MDRD) Non-Af Amer 17 mL/min >60 [facility] Comment on above: Non- GFR Calc Serum or plasma calcium jessie urement (mass/volume)Ordered By: Kendra Pierce on 05-16-2023 Calcium [Mass/Vol] 9.1 mg/dL 8.5-10.1 [facility] Serum or plasma creatinine m easurement (mass/volume)Ordered By: Kendra Pierce on 05-16-2023 Creatinine [Mass/Vol] 4.05 mg/dL 0.70-1.30 [facility] Comment on above: The validity of the calculated GFR & GFRAA in patients over 70 years has not been determined. Clinical correlation is essential. Serum or plasma urea nitroge n measurement (mass/volume)Ordered By: Kendra Pierce on 05-16-2023 Urea nitrogen [Mass/Vol] 42 mg/dL 7-18 [facility] Thin prep Papanicolaou smear with manual screeningOrdered By: Kendra Pierce on 05-16-2023 Thin prep Papanicolaou smear with manual screening 2.7 g/dL 3.2-5.0 [facility] Thin prep Papanicolaou smear with manual screening 22 U/L 15-37 [facility] Thin prep Papanicolaou smear with manual screening 3 5-15 [facility] Whole blood hemoglobin A1c/t otal hemoglobin ratio (mass fraction)Ordered By: Kendra Pierce on 05-16-2023 HbA1c (Bld) [Mass fraction] 7.9 % 3.8-5.6 [facility] Comment on above: Normal < 5.7 % Predi abetic 5.7 - 6.4 % Diabetic >or= 6.5 % Please note range changes. Laboratory - Hematology and Cell countson 05-14-2023 HbA1c (Bld) [Mass fraction] 8.5 % 4.2-6.3 [facility] CBC W Auto Differential pane l (Bld)on 04-26-2022 Basophils (Bld) [#/Vol] 0.06 10*3/uL <0.11 k/uL [facility] Basophils/100 WBC (Bld) 0.8 % C [facility] Differential cell count method Nom (Bld) Auto [facility] Eosinophils (Bld) [#/Vol] 0.12 10*3/uL <0.46 k/ uL [facility] Eosinophils/100 WBC (Bld) 1.7 % [facility] Erythrocyte distribution width (RBC) [Ratio] 13.2 % 11.5 - 15.0 % [facility] Hematocrit (Bld) [Volume fraction] 35.7 % Low 39.0 - 51.0 % [facility] Hemoglobin (Bld) [Mass/Vol] 11.9 g/dL Low 13.0 - 17.0 g/dL [facility] Immature granulocytes (Bld) [#/Vol] 0.03 10*3/uL <0.10 k/uL [facility] Immature granulocytes/100 WBC (Bld) 0.4 % [facility] Lymphocytes (Bld) [#/Vol] 1.77 10*3/uL 1. 00 - 4.00 k/uL [facility] Lymphocytes/100 WBC (Bld) 24.5 % [facility] MCH (RBC) [Entitic mass] 27.9 pg 26. 0 - 34.0 pg [facility] MCHC (RBC) [Mass/Vol] 33.3 g/dL 30.5 - 36.0 g/dL [facility] MCV (RBC) [Entitic vol] 83.6 fL 80.0 - 100.0 fL [facility] Monocytes (Bld) [#/Vol] 0.62 10*3/uL <0.87 k/uL [facility] Monocytes/100 WBC (Bld) 8.6 % C [facility] Neutrophils (Bld) [#/Vol] 4.63 10*3/uL 1. 45 - 7.50 k/uL [facility] Neutrophils/100 WBC (Bld) 64.0 % [facility] Nucleated RBC (Bld) [#/Vol] <0.01 k/ uL [facility] Nucleated RBC/100 WBC (Bld) [Ratio] 0.0 /100 WBC [facility] Platelet mean volume (Bld) [Entitic vol] 9.4 fL 9.0 - 12.7 fL [facility] Platelets (Bld) [#/Vol] 316 10*3/uL 150 - 400 k/uL [facility] RBC (Bld) [#/Vol] 4.27 10*6/uL 4.20 - 6.0 0 m/uL [facility] WBC (Bld) [#/Vol] 7.23 10*3/uL 3.70 - 11. 00 k/uL [facility] HEMOGLOBIN A1C (POC)on 04-26 HbA1c (Bld) [Mass fraction] 7.2 % Abnormal 4.2 - 5. 6 % [facility] Absolute lymphocyte counton 11-02-2021 Lymphocytes Auto (Unsp spec) [#/Vol] 1.09 10*3/uL 0.83-4.51 [facility] Work Phone: Basophil percentageon 2021 Basophil percentage 0 SEEN /hpf 0-5 [facility] Work Phone: Basophils/100 WBC (Bld) 0.4 % 0-1 [facility] Work Phone: Bilirubin [Mass/Vol] 0.30 mg/dL 0.20-1.00 [facility] Work Phone: Comment on above: For patients on eltr ombopag therapy, use of Dimension [place] TBIL is not recommended. Chloride [Moles/Vol] 108 mmol/L 98-107 [facility] Work Phone: Eosinophils/100 WBC (Bld) 3.3 % 0-5 [facility] Work Phone: Glucose [Mass/Vol] 98 mg/dL 74-106 [facility] Work Phone: Neutrophils (Bld) [#/Vol] 3.2 10*3/uL 2.0-7.7 [facility] Work Phone: Neutrophils/100 WBC (Bld) 61.6 % 47-70 [facility] Work Phone: Potassium [Moles/Vol] 4.1 mmol/L 3.5-5.1 [facility] Work Phone: Protein [Mass/Vol] 6.6 g/dL 6.4-8.2 [facility] Work Phone: Sodium [Moles/Vol] 138 mmol/L 136-145 [facility] Work Phone: WBC (Bld) [#/Vol] 5.1 10*3/uL 4.4-11.0 [facility] Work Phone: Bilirubin Test strip Ql (U)o n 11-02-2021 Bilirubin Ql (U) Negative Negative [facility] Work Phone: Blood erythrocytes count (nu mber/volume)on 11-02-2021 RBC (Bld) [#/Vol] 4.24 10*6/uL 4.6-6.2 [facility] Work Phone: Blood hemoglobin measurement (mass/volume)on 11-02-2021 Hemoglobin (Bld) [Mass/Vol] 11.5 g/dL 13.0-16. 5 [facility] Work Phone: Blood lymphocytes/100 leukoc yteson 11-02-2021 Lymphocytes/100 WBC (Bld) 21.2 % 19-41 [facility] Work Phone: Blood monocytes/100 leukocyt eson 11-02-2021 Monocytes/100 WBC (Bld) 13.1 % 0-10 [facility] Work Phone: Blood platelet mean volumeon 11-02-2021 Platelet mean volume (Bld) [Entitic vol] 9.1 fL 6.2-12.0 [facility] Work Phone: Determination of erythrocyte mean corpuscular volume (MCV)on 11-02-2021 MCV (RBC) [Entitic vol] 84.4 fL 80-94 [facility] Work Phone: Hematocrit Auto (Bld) [Volum e fraction]on 11-02-2021 Hematocrit (Bld) [Volume fraction] 35.8 % 40-54 [facility] Work Phone: Ketones Test strip Ql (U)on 11-02-2021 Ketones Ql (U) Negative Negative [facility] Work Phone: Laboratory - Chemistry and C hemistry - challengeon 11-02-2021 ALP [Catalytic activity/Vol] 66 U/L 45-117 [facility] Work Phone: ALT [Catalytic activity/Vol] 28 U/L 16-61 [facility] Work Phone: CO2 [Moles/Vol] 27.0 mmol/L 21.0-32.0 [facility] Work Phone: Globulin (S) [Mass/Vol] 3.6 g/dL 2.2-4.2 [facility] Work Phone: Urea nitrogen/Creatinine [Mass ratio] 14.3 mg/mg 10-20 [facility] Work Phone: Laboratory - Hematology and Cell countson 11-02-2021 Erythrocyte distribution width (RBC) [Entitic vol] 40.1 fL 35.1-43.9 [facility] Work Phone: Erythrocyte distribution width (RBC) [Ratio] 13.1 % 11.6-14.6 [facility] Work Phone: Immature granulocytes/100 WBC (Bld) 0.400 % 0.0-0.9 [facility] Work Phone: Comment on above: IG% - Immature Granu locytes (promyelocytes, myelocytes and metamyelocytes) > 1% indicates that a LEFT SHIFT is Present. MCH (RBC) [Entitic mass] 27.1 pg 27.0-32.0 [facility] Work Phone: Nucleated RBC/100 WBC (Bld) [Ratio] 0 % 0-5 [facility] Work Phone: MCHC Auto (RBC) [Mass/Vol]on 11-02-2021 MCHC (RBC) [Mass/Vol] 32.1 g/dL 32-36 [facility] Work Phone: Mucus LM Ql (Urine sed)on Mucus Ql (Urine sed) 0 SEEN /hpf [facility] Work Phone: Nitrite Test strip Ql (U)on 11-02-2021 Nitrite Ql (U) Negative Negative [facility] Work Phone: No Panel Informationon 11-02 Estimated Creatinine Clearance Calc 55.89 ml/min [facility] Work Phone: Estimated GFR (MDRD) Amer 51 mL/min >60 [facility] Work Phone: Comment on above: GFR Calc Estimated GFR (MDRD) Non-Af Amer 42 mL/min >60 [facility] Work Phone: Comment on above: Non- GFR Calc Platelets bldon 11-02-2021 Platelets (Bld) [#/Vol] 291 10*3/uL 150-450 [facility] Work Phone: Protein Test strip Ql (U)on 11-02-2021 Protein Ql (U) 500 mg/dl Negative [facility] Work Phone: Serum or plasma albumin jessie urement (mass/volume)on 11-02-2021 Albumin [Mass/Vol] 3.0 g/dL 3.2-5.0 [facility] Work Phone: Serum or plasma albumin/glob ulin mass ratioon 11-02-2021 Albumin/Globulin [Mass ratio] 0.8 {ratio} 0.9-2.4 [facility] Work Phone: Serum or plasma calcium jessie urement (mass/volume)on 11-02-2021 Calcium [Mass/Vol] 8.9 mg/dL 8.5-10.1 [facility] Work Phone: Serum or plasma creatinine m easurement (mass/volume)on 11-02-2021 Creatinine [Mass/Vol] 1.89 mg/dL 0.70-1.30 [facility] Work Phone: Comment on above: The validity of the calculated GFR & GFRAA in patients over 70 years has not been determined. Clinical correlation is essential. Serum or plasma urea nitroge n measurement (mass/volume)on 11-02-2021 Urea nitrogen [Mass/Vol] 27 mg/dL 7-18 [facility] Work Phone: Squamous epithelial cells de tection in urine sediment by light microscopyon 11-02-2021 Epithelial cells.squamous LM Ql (Urine sed) 0-5 SEEN /hpf 0-5 [facility] Work Phone: Thin prep Papanicolaou smear with manual screeningon 11-02-2021 Thin prep Papanicolaou smear with manual screening 25 U/L 15-37 [facility] Work Phone: Thin prep Papanicolaou smear with manual screening 3 5-15 [facility] Work Phone: Urine blood detectionon RBC Ql (U) 25 /ul Negative [facility] Work Phone: RBC Ql (U) 0-5 SEEN /hpf 0-5 [facility] Work Phone: Urine clarityon 11-02-2021 Clarity (U) Clear Clear [facility] Work Phone: Urine color determinationon 11-02-2021 Color (U) Yellow Yellow [facility] Work Phone: Urine glucose detectionon Glucose Ql (U) 50 mg/dl Normal [facility] Work Phone: Urine leukocyte esterase det ection by dipstickon 11-02-2021 Leukocyte esterase Test strip Ql (U) Negative Negative [facility] Work Phone: Urine pHon 11-02-2021 pH (U) 6.0 [pH] 5.0 - 8.0 [facility] Work Phone: Urine sediment bacteria coun t by microscopy (number/high power field)on 11-02-2021 Bacteria LM.HPF (Urine sed) [#/Area] RARE /hpf None Seen [facility] Work Phone: Urine specific gravity measu rementon 11-02-2021 Specific gravity (U) [Rel density] 1.020 1.002-1.030 [facility] Work Phone: Urobilinogen Auto test strip Ql (U)on 11-02-2021 Urobilinogen Ql (U) Normal mg/dl Normal [facility] Work Phone: Laboratory - Hematology and Cell countson 10-08-2021 HbA1c (Bld) [Mass fraction] 8.2 % [facility] Work Phone: Basophil percentageon 2021 Bilirubin [Mass/Vol] 0.20 mg/dL 0.20-1.00 [facility] Work Phone: Comment on above: For patients on eltr ombopag therapy, use of Dimension [place] TBIL is not recommended. Chloride [Moles/Vol] 103 mmol/L 98-107 [facility] Work Phone: Cholesterol [Mass/Vol] 359 mg/dL <200 [facility] Work Phone: Comment on above: <200 mg/dL Desirable 200-240 mg/dL Borderline >240 mg/dL High Risk Glucose [Mass/Vol] 134 mg/dL 74-106 [facility] Work Phone: Comment on above: Fasting Glucose resu lt greater than or equal to 126 mg/dL suggests DIABETES MELLITUS per A.D.A. criteria. Potassium [Moles/Vol] 4.6 mmol/L 3.5-5.1 [facility] Work Phone: Protein [Mass/Vol] 7.2 g/dL 6.4-8.2 [facility] Work Phone: Sodium [Moles/Vol] 137 mmol/L 136-145 [facility] Work Phone: Triglyceride [Mass/Vol] 124 mg/dL [facility] Work Phone: Comment on above: The drugs N-Acetylcy steine and Metamizole may falsely depress this assay.Serum Triglycerides Reference Interval Normal <150 mg/dL Borderline high 150 - 199 mg/dL High 200 - 499 mg/dL Very High > or = 500 mg/dL Laboratory - Chemistry and C hemistry - challengeon 07-02-2021 ALP [Catalytic activity/Vol] 79 U/L 45-117 [facility] Work Phone: ALT [Catalytic activity/Vol] 25 U/L 16-61 [facility] Work Phone: CO2 [Moles/Vol] 27.0 mmol/L 21.0-32.0 [facility] Work Phone: Globulin (S) [Mass/Vol] 4.0 g/dL 2.2-4.2 [facility] Work Phone: Urea nitrogen/Creatinine [Mass ratio] 13.3 mg/mg 10-20 [facility] Work Phone: No Panel Informationon 07-02 Estimated GFR (MDRD) Amer 60 mL/min >60 [facility] Work Phone: Comment on above: GFR Calc Estimated GFR (MDRD) Non-Af Amer 50 mL/min >60 [facility] Work Phone: Comment on above: Non- GFR Calc Thyroid Stimulating Hormone (TSH) 1.98 uIU/mL 0.358-3.74 [facility] Work Phone: Urine Microalbumin/Creatinine Ratio 2359.8 mg/g CRE <30 [facility] Work Phone: Vitamin D 25-Hydroxy 18.8 ng/mL [facility] Work Phone: Comment on above: Vitamin D 25(OH) Sta tus Range Deficiency <20 ng/mL (50nmol/L) Insufficiency 20 - 30 ng/mL (50 - 75 nmol/L) Sufficiency 30 - 100 ng/mL (75 - 250 nmol/L) Toxicity >100 ng/mL (>250 nmol/L) Serum or plasma albumin jessie urement (mass/volume)on 07-02-2021 Albumin [Mass/Vol] 3.2 g/dL 3.2-5.0 [facility] Work Phone: Serum or plasma albumin/glob ulin mass ratioon 07-02-2021 Albumin/Globulin [Mass ratio] 0.8 {ratio} 0.9-2.4 [facility] Work Phone: Serum or plasma calcium jessie urement (mass/volume)on 07-02-2021 Calcium [Mass/Vol] 9.0 mg/dL 8.5-10.1 [facility] Work Phone: Serum or plasma cholesterol in HDL measurement (mass/volume)on 07-02-2021 Cholesterol in HDL [Mass/Vol] 62 mg/dL [facility] Work Phone: Comment on above: The drugs N-Acetylcy steine and Metamizole may falsely depress this assay. Reference Range HDL <40 mg/dL Low HDL Cholesterol HDL >or= 60 mg/dL High HDL Cholesterol Serum or plasma cholesterol in VLDL measurement (mass/volume)on 07-02-2021 Cholesterol in VLDL [Mass/Vol] 25 mg/dL 5-40 [facility] Work Phone: Serum or plasma creatinine m easurement (mass/volume)on 07-02-2021 Creatinine [Mass/Vol] 1.65 mg/dL 0.70-1.30 [facility] Work Phone: Comment on above: The validity of the calculated GFR & GFRAA in patients over 70 years has not been determined. Clinical correlation is essential. Serum or plasma low density lipoprotein (LDL) cholesterol measurement (mass/volume)on 07-02-2021 Cholesterol in LDL [Mass/Vol] 272 mg/dL 0-130 [facility] Work Phone: Serum or plasma urea nitroge n measurement (mass/volume)on 07-02-2021 Urea nitrogen [Mass/Vol] 22 mg/dL 7-18 [facility] Work Phone: Thin prep Papanicolaou smear with manual screeningon 07-02-2021 Thin prep Papanicolaou smear with manual screening 18 U/L 15-37 [facility] Work Phone: Thin prep Papanicolaou smear with manual screening 7 5-15 [facility] Work Phone: Thin prep Papanicolaou smear with manual screening 3870.0 mg/L NO RANGE EST. [facility] Work Phone: Urine creatinine measurement (mass/volume)on 07-02-2021 Creatinine (U) [Mass/Vol] 164.00 mg/dL NO RANGE EST. [facility] Work Phone: Laboratory - Hematology and Cell countson 06-04-2021 HbA1c (Bld) [Mass fraction] 8.1 % [facility] Work Phone: XR Foot - right AP and Later al and obliqueon 02-04-2020 IMPRESSION: Acute, mildly impacted fracture of the fifth proximal phalanx. 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 DIVISION OF RADIOLOGY Provider, [facility] [place] - 02/04/2020 * * *Final Report* * [...] impacted fracture of the fifth proximal phalanx. Surgical Supply Assistant: NEW Transcribe Date/Time: Feb 04 2020 4:20P Dictated by : OLEG VASQUEZ MD This examination was interpreted and the report reviewed and electronically signed by: OLEG VASQUEZ MD on Feb 04 2020 4:22PM EST [facility] Radiology Study observation (narrative) [facility] XR Foot - right AP and Later al and obliqueOrdered By: [facility] Provider on 02-04-2020 [facility] Vital Signs Date Time Vital Sign Value Performing Clinician Facility 09-21-2024 11:45-0400 Body mass index (BMI) [Ratio] 27.61 kg/m2 Kristal Sullivan MD Work Phone: [facility] 09-21-2024 11:45-0400 Body weight 89.45 kg Kristal Sullivan MD Work Phone: [facility] 09-21-2024 11:45-0400 Diastolic blood pressure 80 mm[Hg] Kristal Sullivan MD Work Phone: [facility] 09-21-2024 11:45-0400 Heart rate 82 /min Kristal Sullivan MD Work Phone: [facility] 09-21-2024 11:45-0400 Respiratory rate 16 /min Kristal Sullivan MD Work Phone: [facility] 09-21-2024 11:45-0400 Systolic blood pressure 135 mm[Hg] Kristal Sullivan MD Work Phone: [facility] 09-07-2024 13:18-0400 Body height 180.[address] Kristal Sullivan MD Work Phone: [facility] 09-07-2024 13:18-0400 Body mass index (BMI) [Ratio] 27.3 kg/m2 Dr. Kristal Sullivan MD Work Phone: 9(917)569-430960 [place] [address] 09-07-2024 13:18-0400 Body weight 88.[address] Kristal Sullivan MD Work Phone: 2(361)467-133399 [place] [address] 09-07-2024 13:18-0400 Diastolic blood pressure 84 mm[Hg] Dr. Kristal Sullivan MD Work Phone: 7(155)966-441299 [place] [address] 09-07-2024 13:18-0400 Heart rate 81 /min Dr. Kristal Sullivan MD Work Phone: 8(759)816-281499 [place] [address] 09-07-2024 13:18-0400 Respiratory rate 16 /min Dr. Kristal Sullivan MD Work Phone: 7(769)272-296099 [place] [address] 09-07-2024 13:18-0400 SaO2% (BldA) [Mass fraction] 98 % Dr. Kristal Sullivan MD Work Phone: 1(864)555-139599 [place] [address] 09-07-2024 13:18-0400 Systolic blood pressure 133 mm[Hg] Dr. Kristal Sullivan MD Work Phone: 3(870)221-846599 [place] [address] 08-31-2024 15:09-0400 Body height 180.[address] Kristal Sullivan MD Work Phone: 4(186)432-300399 [place] [address] 08-31-2024 15:09-0400 Body mass index (BMI) [Ratio] 27.3 kg/m2 Dr. Kristal Sullivan MD Work Phone: 9(332)944-058099 [place] [address] 08-31-2024 15:09-0400 Body weight 88.[address] Kristal Sullivan MD Work Phone: 1(374)697-376699 [place] [address] 08-31-2024 15:09-0400 Diastolic blood pressure 92 mm[Hg] Dr. Kristal Sullivan MD Work Phone: 3(132)280-868499 [place] [address] 08-31-2024 15:09-0400 Heart rate 88 /min Dr. Kristal Sullivan MD Work Phone: 4(351)184-574799 [place] [address] 08-31-2024 15:09-0400 Respiratory rate 18 /min Dr. Kristal Sullivan MD Work Phone: 5(898)533-744999 [place] [address] 08-31-2024 15:09-0400 SaO2% (BldA) [Mass fraction] 97 % Dr. Kristal Sullivan MD Work Phone: 0(948)640-586899 [place] [address] 08-31-2024 15:09-0400 Systolic blood pressure 136 mm[Hg] Dr. Kristal Sullivan MD Work Phone: 4(936)518-365899 [place] [address] 08-31-2024 11:45-0400 Body temperature 98 [degF] Dr. Kristal Sullivan MD Work Phone: 8(542)084-887099 [place] [address] 08-31-2024 11:45-0400 Diastolic blood pressure 65 mm[Hg] Dr. Kristal Sullivan MD Work Phone: 1(284)849-282099 [place] [address] 08-31-2024 11:45-0400 Heart rate 79 /min Dr. Kristal Sullivan MD Work Phone: 9(529)327-024399 [place] [address] 08-31-2024 11:45-0400 Respiratory rate 16 /min Dr. Kristal Sullivan MD Work Phone: 6(661)505-754899 [place] [address] 08-31-2024 11:45-0400 SaO2% (BldA) [Mass fraction] 96 % Dr. Kristal Sullivan MD Work Phone: 7(969)849-355699 [place] [address] 08-31-2024 11:45-0400 Systolic blood pressure 121 mm[Hg] Dr. Kristal Sullivan MD Work Phone: 5(778)773-540899 [place] [address] 08-31-2024 10:38-0400 Body height 180.[address] Kristal Sullivan MD Work Phone: 6(309)610-319899 [place] [address] 08-31-2024 10:38-0400 Body mass index (BMI) [Ratio] 27 kg/m2 Dr. Kristal Sullivan MD Work Phone: 4(092)391-650599 [place] [address] 08-31-2024 10:38-0400 Body weight [address] Kristal Sullivan MD Work Phone: 4(698)605-253699 [place] [address] 08-28-2024 12:14-0400 Body temperature 97.3 [degF] Ervin Mejia MD Work Phone: [facility] 08-28-2024 12:14-0400 Diastolic blood pressure 89 mm[Hg] Ervin Mejia MD Work Phone: [facility] 08-28-2024 12:14-0400 Heart rate 86 /min Ervin Mejia MD Work Phone: [facility] 08-28-2024 12:14-0400 Respiratory rate 20 /min Ervin Mejia MD Work Phone: [facility] 08-28-2024 12:14-0400 SaO2% (BldA) [Mass fraction] 97 % Ervin Mejia MD Work Phone: [facility] 08-28-2024 12:14-0400 Systolic blood pressure 155 mm[Hg] Ervin Mejia MD Work Phone: [facility] 08-25-2024 11:00-0400 Body mass index (BMI) [Ratio] 27.59 kg/m2 Ervin Mejia MD Work Phone: [facility] 08-25-2024 11:00-0400 Body weight 89.72 kg Ervin Mejia MD Work Phone: [facility] 08-23-2024 10:31-0400 Body height 180.3 cm Ervin Mejia MD Work Phone: [facility] 08-23-2024 07:00-0400 Diastolic blood pressure 67 mm[Hg] Dr. Kristal Sullivan MD Work Phone: [facility] 08-23-2024 07:00-0400 Heart rate 97 /min Dr. Kristal Sullivan MD Work Phone: [facility] 08-23-2024 07:00-0400 Respiratory rate 18 /min Dr. Kristal Sullivan MD Work Phone: [facility] 08-23-2024 07:00-0400 SaO2% (BldA) [Mass fraction] 99 % Dr. Kristal Sullivan MD Work Phone: [facility] 08-23-2024 07:00-0400 Systolic blood pressure 118 mm[Hg] Dr. Kristal Sullivan MD Work Phone: [facility] 08-23-2024 06:58-0400 Body temperature 99.2 [degF] Dr. Kristal Sullivan MD Work Phone: 0(753)896-046199 [place] [address] 08-23-2024 00:57-0400 Body mass index (BMI) [Ratio] 26.5 kg/m2 Dr. Kristal Sullivan MD Work Phone: 4(570)421-668499 [place] [address] 08-23-2024 00:57-0400 Body weight 86.[address] Kristal Sullivan MD Work Phone: 0(669)838-987199 [place] [address] 08-23-2024 00:31-0400 Body height 180.[address] Kristal Sullivan MD Work Phone: 8(644)963-933899 [place] [address] 08-17-2024 14:47-0400 Body height 180.[address] Kristal Sullivan MD Work Phone: 1(515)076-497099 [place] [address] 08-17-2024 14:47-0400 Body mass index (BMI) [Ratio] 26.6 kg/m2 Dr. Kristal Sullivan MD Work Phone: 5(780)998-042199 [place] [address] 08-17-2024 14:47-0400 Body weight 86.[address] Kristal Sullivan MD Work Phone: 1(837)512-333299 [place] [address] 08-17-2024 14:47-0400 Diastolic blood pressure 88 mm[Hg] Dr. Kristal Sullivan MD Work Phone: 4(674)052-728199 [place] [address] 08-17-2024 14:47-0400 Heart rate 98 /min Dr. Kristal Sullivan MD Work Phone: 5(289)228-092499 [place] [address] 08-17-2024 14:47-0400 Respiratory rate 18 /min Dr. Kritsal Sullivan MD Work Phone: 4(182)471-100999 [place] [address] 08-17-2024 14:47-0400 SaO2% (BldA) [Mass fraction] 98 % Dr. Kristal Sullivan MD Work Phone: 3(238)611-522199 [place] [address] 08-17-2024 14:47-0400 Systolic blood pressure 123 mm[Hg] Dr. Kristal Sullivan MD Work Phone: 1(665)399-960099 [place] [address] 08-11-2024 16:02-0400 Diastolic blood pressure 67 mm[Hg] Dr. Kristal Sullivan MD Work Phone: 0(545)704-027599 [place] [address] 08-11-2024 16:02-0400 Heart rate 102 /min Dr. Kristal Sullivan MD Work Phone: 8(013)855-699999 [place] [address] 08-11-2024 16:02-0400 Systolic blood pressure 136 mm[Hg] Dr. Kristal Sullivan MD Work Phone: 1(881)996-610599 [place] [address] 08-11-2024 15:03-0400 Body temperature 98.1 [degF] Dr. Kristal Sullivan MD Work Phone: 3(303)421-615199 [place] [address] 08-11-2024 15:03-0400 Respiratory rate 16 /min Dr. Kristal Sullivan MD Work Phone: 1(606)655-223799 [place] [address] 08-11-2024 15:03-0400 SaO2% (BldA) [Mass fraction] 98 % Dr. Kristal Sullivan MD Work Phone: 0(087)192-408499 [place] [address] 08-11-2024 14:42-0400 Body mass index (BMI) [Ratio] 26.9 kg/m2 Dr. Kristal Sullivan MD Work Phone: 9(319)161-386899 [place] [address] 08-11-2024 14:42-0400 Body weight 87.[address] Kristal Sullivan MD Work Phone: 9(837)171-353099 [place] [address] 08-11-2024 14:02-0400 Body height 180.[address] Kristal Sullivan MD Work Phone: 0(970)559-319499 [place] [address] 08-10-2024 23:50-0400 Body temperature 98.3 [degF] Dr. Kristal Sullivan MD Work Phone: 3(137)846-393199 [place] [address] 08-10-2024 23:50-0400 Diastolic blood pressure 96 mm[Hg] Dr. Kristal Sullivan MD Work Phone: 7(510)112-102899 [place] [address] 08-10-2024 23:50-0400 Heart rate 108 /min Dr. Kristal Sullivan MD Work Phone: 1(738)086-350099 [place] [address] 08-10-2024 23:50-0400 Respiratory rate 19 /min Dr. Kristal Sullivan MD Work Phone: 0(656)023-270199 [place] [address] 08-10-2024 23:50-0400 SaO2% (BldA) [Mass fraction] 100 % Dr. Kristal Sullivan MD Work Phone: 2(168)370-757699 [place] [address] 08-10-2024 23:50-0400 Systolic blood pressure 164 mm[Hg] Dr. Kristal Sullivan MD Work Phone: 3(116)160-978599 [place] [address] 08-10-2024 19:36-0400 Body height 180.[address] Kristal Sullivan MD Work Phone: 5(496)882-194199 [place] [address] 08-10-2024 19:36-0400 Body mass index (BMI) [Ratio] 27.7 kg/m2 Dr. Kristal Sullivan MD Work Phone: 8(967)405-447699 [place] [address] 08-10-2024 19:36-0400 Body weight 90.[address] Kristal Sullivan MD Work Phone: 3(118)634-310999 [place] [address] 08-05-2024 10:54-0400 Body temperature 97.8 [degF] Dr. Kristal Sullivan MD Work Phone: 9(965)483-835699 [place] [address] 08-05-2024 10:54-0400 Body weight 91.[address] Kristal Sullivan MD Work Phone: 5(912)710-329299 [place] [address] 08-05-2024 10:54-0400 Diastolic blood pressure 94 mm[Hg] Dr. Kristal Sullivan MD Work Phone: 1(521)953-979699 [place] [address] 08-05-2024 10:54-0400 Heart rate 96 /min Dr. Kristal Sullivan MD Work Phone: 4(027)154-944599 [place] [address] 08-05-2024 10:54-0400 Respiratory rate 16 /min Dr. Kristal Sullivan MD Work Phone: 9(119)596-059599 [place] [address] 08-05-2024 10:54-0400 SaO2% (BldA) [Mass fraction] 98 % Dr. Kristal Sullivan MD Work Phone: 6(116)773-602399 [place] [address] 08-05-2024 10:54-0400 Systolic blood pressure 142 mm[Hg] Dr. Kristal Sullivan MD Work Phone: 9(055)444-336699 [place] [address] 07-28-2024 10:37-0400 Body mass index (BMI) [Ratio] 28.5 kg/m2 Dr. Kristal Sullivan MD Work Phone: 0(213)421-868199 [place] [address] 07-28-2024 10:37-0400 Body weight 92.[address] Kristal Sullivan MD Work Phone: 7(908)778-622699 [place] [address] 07-28-2024 10:37-0400 Diastolic blood pressure 93 mm[Hg] Dr. Kristal Sullivan MD Work Phone: 5(774)782-597399 [place] [address] 07-28-2024 10:37-0400 Heart rate 80 /min Dr. Kristal Sullivan MD Work Phone: 8(078)597-461199 [place] [address] 07-28-2024 10:37-0400 SaO2% (BldA) [Mass fraction] 97 % Dr. Kristal Sullivan MD Work Phone: 0(759)607-445099 [place] [address] 07-28-2024 10:37-0400 Systolic blood pressure 189 mm[Hg] Dr. Kristal Sullivan MD Work Phone: 6(296)720-168699 [place] [address] 07-20-2024 17:15-0400 Diastolic blood pressure 88 mm[Hg] Dr. Kristal Sullivan MD Work Phone: 5(239)610-557799 [place] [address] 07-20-2024 17:15-0400 Heart rate 67 /min Dr. Kristal Sullivan MD Work Phone: 4(494)650-444299 [place] [address] 07-20-2024 17:15-0400 Respiratory rate 16 /min Dr. Kristal Sullivan MD Work Phone: 9(632)635-879199 [place] [address] 07-20-2024 17:15-0400 SaO2% (BldA) [Mass fraction] 94 % Dr. Kristal Sullivan MD Work Phone: 1(104)762-711399 [place] [address] 07-20-2024 17:15-0400 Systolic blood pressure 158 mm[Hg] Dr. Kristal Sullivan MD Work Phone: 2(629)722-186199 [place] [address] 07-20-2024 16:55-0400 Body temperature 97.3 [degF] Dr. Kristal Sullivan MD Work Phone: [facility] 07-20-2024 13:23-0400 Body height 180.[address] Kristal Sullivan MD Work Phone: [facility] 07-20-2024 13:23-0400 Body mass index (BMI) [Ratio] 28.5 kg/m2 Dr. Kristal Sullivan MD Work Phone: [facility] 07-20-2024 13:23-0400 Body weight 92.[address] Kristal Sullivan MD Work Phone: [facility] 07-07-2024 07:22-0400 Body height 180.34 cm No Primary Care Physician [facility] 07-07-2024 07:22-0400 Body weight 92.98 kg No Primary Care Physician [facility] 06-30-2024 08:01-0400 Body mass index (BMI) [Ratio] 28.5 kg/m2 No Primary Care Physician [facility] 06-18-2024 11:27-0400 Body temperature 98.4 [degF] No Primary Care Physician [facility] 06-18-2024 11:27-0400 Body weight 92.98 kg No Primary Care Physician [facility] 06-18-2024 11:27-0400 Diastolic blood pressure 94 mm[Hg] No Primary Care Physician [facility] 06-18-2024 11:27-0400 Heart rate 84 /min No Primary Care Physician [facility] 06-18-2024 11:27-0400 Respiratory rate 16 /min No Primary Care Physician [facility] 06-18-2024 11:27-0400 SaO2% (BldA) [Mass fraction] 99 % No Primary Care Physician [facility] 06-18-2024 11:27-0400 Systolic blood pressure 151 mm[Hg] No Primary Care Physician [facility] 06-15-2024 13:30-0400 Body height 180 cm Kristal Sullivan MD Work Phone: [facility] 06-15-2024 13:30-0400 Body mass index (BMI) [Ratio] 28.28 kg/m2 Kristal Sullivan MD Work Phone: [facility] 06-15-2024 13:30-0400 Body weight 91.63 kg Kristal Sullivan MD Work Phone: [facility] 06-15-2024 13:30-0400 Diastolic blood pressure 66 mm[Hg] Kristal Sullivan MD Work Phone: [facility] 06-15-2024 13:30-0400 Heart rate 90 /min Kristal Sullivan MD Work Phone: [facility] 06-15-2024 13:30-0400 SaO2% (BldA) [Mass fraction] 97 % Kristal Sullivan MD Work Phone: [facility] 06-15-2024 13:30-0400 Systolic blood pressure 118 mm[Hg] Kristal Sullivan MD Work Phone: [facility] 04-23-2024 08:17-0500 Body temperature 98.2 [degF] No Primary Care Physician [facility] 04-23-2024 08:17-0500 Body weight 96.16 kg No Primary Care Physician [facility] 04-23-2024 08:17-0500 Diastolic blood pressure 101 mm[Hg] No Primary Care Physician [facility] 04-23-2024 08:17-0500 Heart rate 93 /min No Primary Care Physician [facility] 04-23-2024 08:17-0500 Respiratory rate 16 /min No Primary Care Physician [facility] 04-23-2024 08:17-0500 SaO2% (BldA) [Mass fraction] 98 % No Primary Care Physician [facility] 04-23-2024 08:17-0500 Systolic blood pressure 184 mm[Hg] No Primary Care Physician [facility] 04-20-2024 12:23-0500 Body temperature 98 [degF] No Primary Care Physician [facility] 04-20-2024 12:23-0500 Diastolic blood pressure 74 mm[Hg] No Primary Care Physician [facility] 04-20-2024 12:23-0500 Heart rate 89 /min No Primary Care Physician [facility] 04-20-2024 12:23-0500 Respiratory rate 16 /min No Primary Care Physician [facility] 04-20-2024 12:23-0500 SaO2% (BldA) [Mass fraction] 97 % No Primary Care Physician [facility] 04-20-2024 12:23-0500 Systolic blood pressure 164 mm[Hg] No Primary Care Physician [facility] 04-20-2024 10:23-0500 Body height 180.34 cm No Primary Care Physician [facility] 04-20-2024 10:23-0500 Body mass index (BMI) [Ratio] 29.3 kg/m2 No Primary Care Physician [facility] 04-20-2024 10:23-0500 Body weight 95.5 kg No Primary Care Physician [facility] 02-25-2024 10:16-0500 Body mass index (BMI) [Ratio] 27.9 kg/m2 No Primary Care Physician [facility] 02-25-2024 10:16-0500 Body weight 90.83 kg No Primary Care Physician [facility] 02-25-2024 10:16-0500 Diastolic blood pressure 71 mm[Hg] No Primary Care Physician [facility] 02-25-2024 10:16-0500 Heart rate 60 /min No Primary Care Physician [facility] 02-25-2024 10:16-0500 SaO2% (BldA) [Mass fraction] 94 % No Primary Care Physician [facility] 02-25-2024 10:16-0500 Systolic blood pressure 129 mm[Hg] No Primary Care Physician [facility] 02-25-2024 09:17-0500 Body mass index (BMI) [Ratio] 27.7 kg/m2 No Primary Care Physician [facility] 02-25-2024 09:17-0500 Body weight 90.26 kg No Primary Care Physician [facility] 02-25-2024 09:17-0500 Diastolic blood pressure 75 mm[Hg] No Primary Care Physician [facility] 02-25-2024 09:17-0500 Heart rate 84 /min No Primary Care Physician [facility] 02-25-2024 09:17-0500 Respiratory rate 18 /min No Primary Care Physician [facility] 02-25-2024 09:17-0500 SaO2% (BldA) [Mass fraction] 100 % No Primary Care Physician [facility] 02-25-2024 09:17-0500 Systolic blood pressure 110 mm[Hg] No Primary Care Physician [facility] 08-28-2023 12:51-0400 Body height 180.[address] Work Phone: [facility] 08-28-2023 12:51-0400 Body mass index (BMI) [Ratio] 29.43 kg/m2 Virgen Stroud RD Work Phone: [facility] 08-28-2023 12:51-0400 Body weight 95.[address] Work Phone: [facility] 08-01-2023 11:37-0400 Body temperature 97.5 [degF] Dr. Kristal Sullivan Work Phone: 8(659)657-226860 [place] [address] 08-01-2023 11:37-0400 Diastolic blood pressure 90 mm[Hg] Dr. Kristal Sullivan Work Phone: 2(804)013-196660 [place] [address] 08-01-2023 11:37-0400 Heart rate 68 /min Dr. Kristal Sullivan Work Phone: 7(998)882-179660 [place] [address] 08-01-2023 11:37-0400 Respiratory rate 18 /min Dr. Kristal Sullivan Work Phone: [facility] 08-01-2023 11:37-0400 SaO2% (BldA) [Mass fraction] 96 % Dr. Kristal Sullivan Work Phone: [facility] 08-01-2023 11:37-0400 Systolic blood pressure 143 mm[Hg] Dr. Kristal Sullivan Work Phone: 7(402)142-942660 [place] [address] 08-01-2023 10:35-0400 Inhaled oxygen flow rate 2 L/min Dr. Kristal Sullivan Work Phone: 7(797)234-808760 [place] [address] 08-01-2023 07:06-0400 Body height 180.[address] Kristal Sullivan Work Phone: 4(378)644-674460 [place] [address] 08-01-2023 07:06-0400 Body mass index (BMI) [Ratio] 29.8 kg/m2 Dr. Kristal Sullivan Work Phone: 5(215)703-316599 [place] [address] 08-01-2023 07:06-0400 Body weight [address] Kristal Sullivan Work Phone: 1(643)069-557699 [place] [address] 07-30-2023 14:21-0400 Body mass index (BMI) [Ratio] 30.5 kg/m2 Dr. Kristal Sullivan Work Phone: 9(065)807-567199 [place] [address] 07-30-2023 14:21-0400 Body weight 99.[address] Kristal Sullivan Work Phone: 1(995)978-620699 [place] [address] 07-30-2023 14:21-0400 Diastolic blood pressure 87 mm[Hg] Dr. Kristal Sullivan Work Phone: 3(010)908-860499 [place] [address] 07-30-2023 14:21-0400 Respiratory rate 16 /min Dr. Kristal Sullivan Work Phone: 4(502)762-228399 [place] [address] 07-30-2023 14:21-0400 Systolic blood pressure 157 mm[Hg] Dr. Kristal Sullivan Work Phone: 6(169)833-985299 [place] [address] 07-03-2023 12:05-0400 SaO2% (BldA) [Mass fraction] 97 % Dr. Kristal Sullivan Work Phone: 3(428)387-366599 [place] [address] 07-03-2023 08:50-0400 Heart rate 85 /min Dr. Kristal Sullivan Work Phone: 8(259)952-867999 [place] [address] 07-03-2023 08:48-0400 Body temperature 97.8 [degF] Dr. Kristal Sullivan Work Phone: 8(202)360-317899 [place] [address] 07-03-2023 08:48-0400 Diastolic blood pressure 96 mm[Hg] Dr. Kirstal Sullivan Work Phone: 5(160)463-506299 [place] [address] 07-03-2023 08:48-0400 Respiratory rate 11 /min Dr. Kristal Sullivan Work Phone: 4(258)895-492999 [place] [address] 07-03-2023 08:48-0400 Systolic blood pressure 160 mm[Hg] Dr. Kristal Sullivan Work Phone: 5(635)233-823260 [place] [address] 07-02-2023 11:34-0400 Body height 180.[address] Kristal Sullivan Work Phone: 1(399)029-098699 [place] [address] 07-02-2023 11:34-0400 Body weight 103.[address] Kristal Sullivan Work Phone: 6(328)008-350699 [place] [address] 07-02-2023 10:00-0400 Body temperature 98.2 [degF] Dr. Kristal Sullivan Work Phone: 9(270)518-841799 [place] [address] 07-02-2023 10:00-0400 Diastolic blood pressure 98 mm[Hg] Dr. Kristal Sullivan Work Phone: 1(209)380-536899 [place] [address] 07-02-2023 10:00-0400 Heart rate 93 /min Dr. Kristal Sullivan Work Phone: 7(578)659-980099 [place] [address] 07-02-2023 10:00-0400 Respiratory rate 16 /min Dr. Kristal Sullivan Work Phone: 9(966)220-623899 [place] [address] 07-02-2023 10:00-0400 SaO2% (BldA) [Mass fraction] 91 % Dr. Kristal Sullivan Work Phone: 7(047)189-913160 [place] [address] 07-02-2023 10:00-0400 Systolic blood pressure 175 mm[Hg] Dr. Kristal Sullivan Work Phone: 1(242)645-348160 [place] [address] 07-01-2023 19:29-0400 Body mass index (BMI) [Ratio] 31.7 kg/m2 Dr. Kristal Sullivan Work Phone: 7(048)652-487599 [place] [address] 07-01-2023 19:01-0400 Body temperature 98 [degF] Dr. Kristal Sullivan Work Phone: 3(417)727-760699 [place] [address] 07-01-2023 19:01-0400 Diastolic blood pressure 66 mm[Hg] Dr. Kristal Sullivan Work Phone: 2(118)282-578060 [place] [address] 07-01-2023 19:01-0400 Heart rate 90 /min Dr. Kristal Sullivan Work Phone: 6(515)760-024399 [place] [address] 07-01-2023 19:01-0400 Respiratory rate 18 /min Dr. Kristal Sullivan Work Phone: 7(582)987-729299 [place] [address] 07-01-2023 19:01-0400 SaO2% (BldA) [Mass fraction] 93 % Dr. Kristal Sullivan Work Phone: 5(782)577-851299 [place] [address] 07-01-2023 19:01-0400 Systolic blood pressure 140 mm[Hg] Dr. Kristal Sullivan Work Phone: 1(716)839-949399 [place] [address] 07-01-2023 12:53-0400 Body height 180.[address] Kristal Sullivan Work Phone: 1(816)535-544199 [place] [address] 07-01-2023 12:53-0400 Body mass index (BMI) [Ratio] 32.2 kg/m2 Dr. Kristal Sullivan Work Phone: 7(801)284-484799 [place] [address] 07-01-2023 12:53-0400 Body weight 104.[address] Kristal Sullivan Work Phone: 9(391)753-356099 [place] [address] 05-14-2023 13:10-0500 Body height 180.[address] Kristal Sullivan Work Phone: 8(906)339-345199 [place] [address] 05-14-2023 13:10-0500 Body mass index (BMI) [Ratio] 32.1 kg/m2 Dr. Kristal Sullivan Work Phone: 1(568)403-960499 [place] [address] 05-14-2023 13:10-0500 Body temperature 98.6 [degF] Dr. Kristal Sullivan Work Phone: 9(433)786-104599 [place] [address] 05-14-2023 13:10-0500 Body weight 104.[address] Kristal Sullivan Work Phone: 0(636)756-156799 [place] [address] 05-14-2023 13:10-0500 Diastolic blood pressure 90 mm[Hg] Dr. Kristal Sullivan Work Phone: 6(722)946-127299 [place] [address] 05-14-2023 13:10-0500 Heart rate 86 /min Dr. Kristal Sullivan Work Phone: 7(239)720-532399 [place] [address] 05-14-2023 13:10-0500 Respiratory rate 18 /min Dr. Kristal Sullivan Work Phone: 4(433)223-134699 [place] [address] 05-14-2023 13:10-0500 SaO2% (BldA) [Mass fraction] 99 % Dr. Kristal Sullivan Work Phone: 3(829)796-786199 [place] [address] 05-14-2023 13:10-0500 Systolic blood pressure 180 mm[Hg] Dr. Kristal Sullivan Work Phone: 1(776)732-041099 [place] [address] 04-07-2023 11:16-0500 Body mass index (BMI) [Ratio] 31.1 kg/m2 Dr. Kristal Sullivan Work Phone: 7(967)717-723699 [place] [address] 04-07-2023 11:16-0500 Body temperature 97.3 [degF] Dr. Kristal Sullivan Work Phone: 4(307)651-076999 [place] [address] 04-07-2023 11:16-0500 Body weight 101.[address] Kristal Sullivan Work Phone: 4(475)475-308799 [place] [address] 04-07-2023 11:16-0500 Diastolic blood pressure 104 mm[Hg] Dr. Kristal Sullivan Work Phone: 5(194)631-684099 [place] [address] 04-07-2023 11:16-0500 Heart rate 101 /min Dr. Kristal Sullivan Work Phone: 5(163)104-627799 [place] [address] 04-07-2023 11:16-0500 Respiratory rate 18 /min Dr. Kristal Sullivan Work Phone: 9(485)556-621899 [place] [address] 04-07-2023 11:16-0500 SaO2% (BldA) [Mass fraction] 99 % Dr. Kristal Sullivan Work Phone: 4(929)274-757299 [place] [address] 04-07-2023 11:16-0500 Systolic blood pressure 187 mm[Hg] Dr. Kristal Sullivan Work Phone: 1(829)622-041399 [place] [address] 07-02-2022 12:16-0400 Diastolic blood pressure 96 mm[Hg] Yas Murray [employer]ER GRADER.[employer] PROCESSOR Work Phone: [facility] 07-02-2022 12:16-0400 Heart rate 87 /min Yas Murray PAPER GRADER.REAL ESTATE PROCESSOR Work Phone: [facility] 07-02-2022 12:16-0400 Systolic blood pressure 166 mm[Hg] Yas Murray PAPER GRADER.REAL ESTATE PROCESSOR Work Phone: [facility] 07-02-2022 12:05-0400 Body weight 94.8 kg Yas Murray PAPER GRADER.REAL ESTATE PROCESSOR Work Phone: [facility] 07-02-2022 12:05-0400 Respiratory rate 16 /min Yas Murray PAPER GRADER.REAL ESTATE PROCESSOR Work Phone: [facility] 05-31-2022 12:02-0500 Diastolic blood pressure 92 mm[Hg] Kristal Sullivan MD Work Phone: [facility] 05-31-2022 12:02-0500 Systolic blood pressure 136 mm[Hg] Kristal Sullivan MD Work Phone: [facility] 05-31-2022 11:45-0500 Body height 180.3 cm Kristal Sullivan MD Work Phone: [facility] 05-31-2022 11:45-0500 Body temperature 97.9 [degF] Kristal Sullivan MD Work Phone: [facility] 05-31-2022 11:45-0500 Body weight 94.8 kg Kristal Sullivan MD Work Phone: [facility] 05-31-2022 11:45-0500 Heart rate 96 /min Kristal Sullivan MD Work Phone: [facility] 05-31-2022 11:45-0500 Respiratory rate 12 /min Kristal Sullivan MD Work Phone: [facility] 05-31-2022 11:45-0500 SaO2% (BldA) [Mass fraction] 100 % Kristal Sullivan MD Work Phone: [facility] 04-26-2022 11:40-0500 Body height 180.3 cm Kristal Sullivan MD Work Phone: [facility] 04-26-2022 11:40-0500 Body temperature 99.39 [degF] Kristal Sullivan MD Work Phone: [facility] 04-26-2022 11:40-0500 Body weight 100.25 kg Kristal Sullivan MD Work Phone: [facility] 04-26-2022 11:40-0500 Diastolic blood pressure 76 mm[Hg] Kristal Sullivan MD Work Phone: [facility] 04-26-2022 11:40-0500 Heart rate 96 /min Kristal Sullivan MD Work Phone: [facility] 04-26-2022 11:40-0500 Respiratory rate 12 /min Kristal Sullivan MD Work Phone: [facility] 04-26-2022 11:40-0500 SaO2% (BldA) [Mass fraction] 99 % Kristal Sullivan MD Work Phone: [facility] 04-26-2022 11:40-0500 Systolic blood pressure 136 mm[Hg] Kristal Sullivan MD Work Phone: [facility] 11-02-2021 19:18-0400 Diastolic blood pressure 99 mm[Hg] Dr. Kristal Sullivan Work Phone: [facility] Work Phone: 11-02-2021 19:18-0400 Heart rate 79 /min Dr. Kristal Sullivan Work Phone: [facility] Work Phone: 11-02-2021 19:18-0400 Respiratory rate 18 /min Dr. Kristal Sullivan Work Phone: [facility] Work Phone: 11-02-2021 19:18-0400 SaO2% (BldA) [Mass fraction] 100 % Dr. Kristal Sullivan Work Phone: [facility] Work Phone: 11-02-2021 19:18-0400 Systolic blood pressure 150 mm[Hg] Dr. Kristal Sullivan Work Phone: [facility] Work Phone: 11-02-2021 16:25-0400 Body height 180.[address] Kristal Sullivan Work Phone: [facility] Work Phone: 11-02-2021 16:25-0400 Body mass index (BMI) [Ratio] 30.8 kg/m2 Dr. Kristal Sullivan Work Phone: [facility] Work Phone: 11-02-2021 16:25-0400 Body temperature 98.7 [degF] Dr. Kristal Sullivan Work Phone: [facility] Work Phone: 11-02-2021 16:25-0400 Body weight 100.[address] Kristal Sullivan Work Phone: [facility] Work Phone: 10-08-2021 14:15-0400 Body mass index (BMI) [Ratio] 30.9 kg/m2 Dr. Kristal Sullivan Work Phone: [facility] Work Phone: 10-08-2021 14:15-0400 Body temperature 97.1 [degF] Dr. Kristal Sullivan Work Phone: [facility] Work Phone: 10-08-2021 14:15-0400 Body weight 100.[address] Kristal Sullivan Work Phone: [facility] Work Phone: 10-08-2021 14:15-0400 Diastolic blood pressure 80 mm[Hg] Dr. Kristal Sullivan Work Phone: [facility] Work Phone: 10-08-2021 14:15-0400 Heart rate 103 /min Dr. Kristal Sullivan Work Phone: [facility] Work Phone: 10-08-2021 14:15-0400 Respiratory rate 18 /min Dr. Kristal Sullivan Work Phone: [facility] Work Phone: 10-08-2021 14:15-0400 SaO2% (BldA) [Mass fraction] 98 % Dr. Kristal Sullivan Work Phone: [facility] Work Phone: 10-08-2021 14:15-0400 Systolic blood pressure 130 mm[Hg] Dr. Kristal Sullivan Work Phone: [facility] Work Phone: 07-02-2021 13:52-0400 Body height 180.[address] Kristal Sullivan Work Phone: [facility] Work Phone: 07-02-2021 13:52-0400 Body mass index (BMI) [Ratio] 29.3 kg/m2 Dr. Kristal Sullivan Work Phone: [facility] Work Phone: 07-02-2021 13:52-0400 Body temperature 96.9 [degF] Dr. Kristal Sullivan Work Phone: [facility] Work Phone: 07-02-2021 13:52-0400 Body weight 95.[address] Kristal Sullivan Work Phone: [facility] Work Phone: 07-02-2021 13:52-0400 Diastolic blood pressure 84 mm[Hg] Dr. Kristal Sullivan Work Phone: [facility] Work Phone: 07-02-2021 13:52-0400 Heart rate 95 /min Dr. Kristal Sullivan Work Phone: [facility] Work Phone: 07-02-2021 13:52-0400 Respiratory rate 18 /min Dr. Kristal Sullivan Work Phone: [facility] Work Phone: 07-02-2021 13:52-0400 SaO2% (BldA) [Mass fraction] 98 % Dr. Kristal Sullivan Work Phone: [facility] Work Phone: 07-02-2021 13:52-0400 Systolic blood pressure 128 mm[Hg] Dr. Kristal Sullivan Work Phone: [facility] Work Phone: 06-04-2021 15:05-0500 Body mass index (BMI) [Ratio] 30 kg/m2 Dr. Kristal Sullivan Work Phone: [facility] Work Phone: 06-04-2021 15:05-0500 Body temperature 97.2 [degF] Dr. Kristal Sullivan Work Phone: [facility] Work Phone: 06-04-2021 15:05-0500 Body weight 97.[address] Kristal Sullivan Work Phone: [facility] Work Phone: 06-04-2021 15:05-0500 Diastolic blood pressure 90 mm[Hg] Dr. Kristal Sullivan Work Phone: [facility] Work Phone: 06-04-2021 15:05-0500 Heart rate 98 /min Dr. Kristal Sullivan Work Phone: [facility] Work Phone: 06-04-2021 15:05-0500 Respiratory rate 18 /min Dr. Kristal Sullivan Work Phone: [facility] Work Phone: 06-04-2021 15:05-0500 SaO2% (BldA) [Mass fraction] 97 % Dr. Kristal Sullivan Work Phone: [facility] Work Phone: 06-04-2021 15:05-0500 Systolic blood pressure 140 mm[Hg] Dr. Kristal Sullivan Work Phone: [facility] Work Phone: Encounters Encounter Date Encounter Type Care Provider Facility Start: 11-02-2024 ambulatory [place] Facility :[facility] Start: 10-14-2024 End: 10-14-2024 ambulatory [facility] Comment on above: Pre-transplant evalu ation for kidney transplant (Primary Dx) Start: 10-14-2024 End: 10-14-2024 Patient encounter status Waitlist Education Work Phone: [facility] Start: 10-14-2024 End: 10-14-2024 Telemedicine consultation with patient Waitlist Group Education Work Phone: [facility] Start: 10-06-2024 End: 10-06-2024 Telephone encounter [facility] Work Phone: [facility] Comment on above: Appointments Reminde r Start: 09-29-2024 ambulatory Kristal Sullivan Facility:[facility] Start: 09-22-2024 End: 09-23-2024 ambulatory Kristal Sullivan MD Work Phone: [facility] [place] Comment on above: Help Start: 09-21-2024 End: 09-21-2024 ambulatory [facility] Facility:[facility] Start: 09-21-2024 Encounter for other preprocedural examination KRISTAL SULLIVAN [facility] Start: 09-21-2024 Encounter for preprocedural cardiovascular examination KRISTAL SULLIVAN [facility] Start: 09-21-2024 End: 09-21-2024 Office outpatient visit 25 minutes Kristal Sullivan MD Work Phone: [facility] [place] Comment on above: Complication associa sharan with [...] Start: 09-21-2024 End: 09-21-2024 ambulatory KRISTAL SULLIVAN Facility:[facility] Start: 09-16-2024 End: 09-16-[address] Kristal Sullivan MD Work Phone: [facility] Work Phone: Start: 09-16-2024 End: 09-16-2024 Patient encounter procedure Kalina CASTELLON -Radiology [facility] Work Phone: Start: 09-16-2024 End: 09-16-2024 ambulatory Kalina Payne Facility:[facility] Start: 09-13-2024 End: 09-13-2024 Chart abstracting Martha Cheatham [facility] Transplant Center Comment on above: ED/RECENT ADMIT FOLL OW UP Start: 09-07-2024 End: 09-07-2024 Patient encounter procedure Kalina CASTELLON -[facility] Work Phone: Start: 09-07-2024 End: 09-07-[address] Kristal Sullivan MD Work Phone: [facility] Work Phone: Start: 08-31-2024 End: 08-31-2024 Patient encounter procedure Lorraine CASTELLON -[facility] Work Phone: Start: 08-31-2024 End: 08-31-[address] Kristal Sullivan MD Work Phone: [facility] Work Phone: Start: 08-31-2024 Non-patient / Non-visit Bao Posada nd DO -[facility] Start: 08-31-2024 End: 08-31-2024 Admission to same day surgery center Bao Angulo DO -Endoscopy Work Phone: Start: 08-31-2024 End: 08-31-[address] Kristal Sullivan MD Work Phone: [facility] Work Phone: Start: 08-24-2024 ambulatory Kristal Sullivan [...] Non-patient / Non-visit Dr. Garrison comer MD -[facility] Start: 08-19-2024 End: 08-19-[address] Kristal Sullivan MD Work Phone: [facility] Work Phone: Start: 08-19-2024 End: 08-19-2024 Patient encounter procedure Thalia CASTREJON -Cardiovascular Services Work Phone: Start: 08-19-2024 End: 08-19-2024 ambulatory Thalia Lea Facility:[facility] Start: 08-17-2024 End: 08-17-2024 Patient encounter procedure Kalina CASTELLON -[facility] Work Phone: Start: 08-17-2024 End: 08-17-[address] Kristal Sullivan MD Work Phone: [facility] Work Phone: Start: 08-11-2024 Non-patient / Non-visit Dr. Louis Koehler MD -[facility] Work Phone: Start: 08-11-2024 Non-patient / Non-visit Dr. Shannan LACEY -[facility] Start: 08-10-2024 End: 08-11-2024 Evaluation and management of inpatient Dr. Eugenia London DO -Progressive Care Unit Work Phone: Start: 08-10-2024 End: 08-11-[address] Kristal Sullivan MD Work Phone: [facility] Work Phone: Start: 08-10-2024 End: 08-12-2024 Refill Kristal Sullivan MD Work Phone: [facility] [place] Start: 08-05-2024 End: 08-05-2024 Patient encounter procedure Thalia Lea PA -[facility] Work Phone: Start: 08-05-2024 End: 08-05-2024 ambulatory Thalia Lea Facility:[facility] Start: 07-28-2024 End: 07-28-2024 Patient encounter procedure Kendra Pierce TRIAGE SPECIALIST-C -[facility] Work Phone: Start: 07-28-2024 End: 07-28-2024 ambulatory Kristal Sullivan Facility:[facility] Start: 07-20-2024 ambulatory Garrison Valadez [facility] Start: 07-20-2024 Non-patient / Non-visit Dr. Garrison comer MD -[facility] Start: 07-20-2024 End: 07-20-2024 Admission to same day surgery center Dr. Garrison Valadez MD -S[facility] Day [facility] Start: 07-20-2024 End: 07-20-[address] Kristal Sullivan MD Work Phone: [facility] Work Phone: Start: 07-14-2024 End: 07-14-2024 Chart abstracting Roro Pollard RN Transplant Center Comment on above: abo verification listed phone call Start: 07-07-2024 ambulatory Garrison Valadez [facility] Start: 07-07-2024 Non-patient / Non-visit Dr. Garrison comer MD -[facility] Start: 07-07-2024 End: 07-07-2024 Admission to same day surgery center Dr. Garrison Valadez MD -Security Guard Dispatcher/Special Procedures Work Phone: Start: 07-07-2024 End: 07-07-2024 ambulatory No Primary Care Physician [facility] Work Phone: Start: 06-24-2024 End: 06-24-2024 ambulatory DUSTIN BEARD Facility:[facility] Start: 06-23-2024 End: 06-23-2024 Chart abstracting Roro Pollard RN Transplant Center Comment on above: approval note Start: 06-18-2024 End: 06-23-2024 Telephone encounter Kristal Sullivan MD Work Phone: [facility] [place] Comment on above: Forms (BMV Request f or Statement of Physician) Start: 06-18-2024 End: 06-18-2024 Patient encounter procedure Thalia CASTREJON -[facility] Work Phone: Start: 06-18-2024 End: 06-18-2024 ambulatory Thalia Lea [facility] Start: 06-17-2024 End: 08-17-2024 Follow-up encounter Kristal Sullivan MD Work Phone: Geriatrics Start: 06-15-2024 End: 06-15-2024 ambulatory KRISTAL SULLIVAN Facility: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 Garrison comer MD -[facility] Start: 06-10-2024 End: 06-10-2024 ambulatory No Primary Care Physician [facility] Work Phone: Start: 06-10-2024 End: 06-10-2024 Patient encounter procedure Thalia CASTREJON -Cardiovascular Services Work Phone: Start: 06-10-2024 End: 06-10-2024 ambulatory Thalia Lea Facility:[facility] Start: 06-04-2024 End: 06-04-2024 Chart abstracting Rukhsana Hernandez [facility] Work Phone: [facility] Start: 06-03-2024 End: 06-03-2024 [...] Kristal Sullivan MD Work Phone: [facility] [place] Comment on above: Diabetes Start: 04-29-2024 End: 04-29-2024 Telephone encounter Ciarra ANDERSON Work Phone: Transplant Center Comment on above: Follow Up Start: 04-23-2024 End: 04-23-2024 Patient encounter procedure Thalia CASTREJON -[facility] Work Phone: Start: 04-23-2024 End: 04-23-2024 ambulatory Thalia Lea Facility:[facility] Start: 04-22-2024 ambulatory Virgen CASTREJON Facility:[facility] Start: 04-20-2024 End: 04-20-2024 Emergency department patient visit Dr. Kristi Murillo DO -Emergency Department Work Phone: Start: 04-12-2024 End: 04-12-2024 Nursing evaluation of patient and report Nurse Card Admin [facility] Work Phone: Cardiology Comment on above: Encounter for other preprocedural examination Start: 04-12-2024 End: 04-12-2024 Patient encounter status Nurse Card Admin [facility] Work Phone: [facility] Start: 04-12-2024 End: 04-12-2024 ambulatory RONEN D POGGIO Facility:[facility] Start: 04-12-2024 End: 04-12-2024 ambulatory RONEN D GGIO Facility:[facility] Start: 04-12-2024 Encounter for other preprocedural examination KRISTAL SULLIVAN [facility] Start: 04-12-2024 End: 04-12-2024 Patient encounter status Injection Wstr Work Phone: [facility] Start: 04-12-2024 End: 04-12-2024 Subsequent hospital visit by physician Injection Nm [facility] Work Phone: Nuclear Medicine Comment on above: Encounter for other preprocedural examination [Z01.818] Start: 04-08-2024 ambulatory Garrison Valadez [facility] Start: 04-07-2024 End: 04-07-2024 ambulatory Nurse [facility] Work Phone: Cardiology Comment on above: Your upcoming stress test Start: 04-07-2024 End: 04-07-2024 E-mail encounter from caregiver Nurse [facility] Work Phone: Cardiology Start: 03-16-2024 ambulatory Virgen blevins PA [place] Start: 03-16-2024 Non-patient / Non-visit Dr. Garrison comer MD -[facility] Start: 03-16-2024 End: 03-16-[address] Daisy Diaz MD -Cardiovascular Services Work Phone: Start: 03-16-2024 End: 03-16-2024 ambulatory Virgen CASTREJON Facility:[facility] Start: 02-25-2024 End: 02-25-2024 Patient encounter procedure Kendra CASTELLON -[facility] Work Phone: Start: 02-25-2024 End: 02-25-2024 ambulatory No Primary Care Physician [place] Start: 02-25-2024 End: 02-25-2024 Patient encounter procedure Virgen CASTREJON -[facility] Work Phone: Start: 02-25-2024 End: 02-25-2024 ambulatory Virgen CASTREJON [place] Start: 02-16-2024 ambulatory No Primary Car e Physician Facility[place] Start: 02-06-2024 End: 02-10-2024 Telephone encounter Kidney Txp Coordinators Work Phone: Transplant Center Comment on above: Patient Update Start: 01-30-2024 End: 01-30-2024 ambulatory No Primary Care Physician [place] Start: 01-28-2024 ambulatory No Primary Car e Physician [facility] Start: 01-26-2024 ambulatory Hussein Efren Facility:[facility] Start: 01-23-2024 ambulatory Venkata Vargas Facili ty[facility] Start: 01-23-2024 End: 01-31-2024 Evaluation and management of inpatient Venkata Vargas Facility:[facility] Start: 12-20-2023 End: 12-20-2023 ambulatory NONE PHYSICIAN Facility:A Start: 12-20-2023 End: 12-20-2023 Patient encounter procedure PHY WO ID REFERRING [facility] Start: 11-10-2023 ambulatory Nurse Card Adm in [facility] Work Phone: Cardiology Comment on above: Stress Test Instruct ions for 11/17/23 Start: 11-10-2023 E-mail encounter fro m caregiver Nurse Card Admin [facility] Work Phone: Cardiology Start: 09-01-2023 Chart abstracting [...] encounter status Kidney Txp Coordinators Work Phone: [facility] Start: 08-21-2023 Telephone encounter Floyd Wagner RN Transplant Center Comment on above: Missed Appointment Start: 08-14-2023 Telephone encounter Kidney Txp Coordinators Work Phone: Transplant Center Comment on above: Appointment Start: 08-01-2023 Non-patient / Non-visit Dr. Eddie Sullivan Work Phone: [facility] Start: 08-01-2023 End: 08-01-2023 Admission to same day surgery center Dr. Kristal Sullivan Work Phone: [facility]-Surgical Day Care Start: 08-01-2023 End: 08-01-[address] Kristal Sullivan Work Phone: [facility] Work Phone: Start: 07-31-2023 Non-patient / Non-visit Dr. Eddie Sullivan Work Phone: [facility] Start: 07-31-2023 End: 07-31-[address] Kristal Sullivan Work Phone: [facility] Work Phone: Start: 07-31-2023 End: 07-31-[address] 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 Reji Sullivan Work Phone: [facility] Start: 07-30-2023 End: 07-30-[address] Kristal Sullivan Work Phone: [facility] Work Phone: Start: 07-29-2023 Telephone encounter Concha Munoz [facility] Comment on above: Referral - Kidney Tx p Start: 07-23-2023 End: 07-23-[address] Kristal Sullivan Work Phone: [facility] Work Phone: Start: 07-23-2023 End: 07-23-[address] Kristal Sullivan Work Phone: [facility]-Laboratory Work Phone: Start: 07-03-2023 Non-patient / Non-visit Dr. Eddie Sullivan Work Phone: [facility] Work Phone: Start: 07-02-2023 Non-patient / Non-visit Dr. Eddie Sullivan Work Phone: [facility] Work Phone: Start: 07-02-2023 Non-patient / Non-visit Dr. Eddie Sullivan Work Phone: [facility] Start: 07-01-2023 Non-patient / Non-visit Dr. Eddie Sullivan Work Phone: [facility] Work Phone: Start: 07-01-2023 End: 07-03-2023 Evaluation and management of inpatient Dr. Kristal Sullivan Work Phone: [facility]-Intensive Care Unit Work Phone: Start: 06-27-2023 End: 06-27-[address] Kristal Sullivan Work Phone: [facility] Work Phone: Start: 06-27-2023 End: 06-27-[address] Kristal Sullivan Work Phone: [facility]-Laboratory Work Phone: Start: 05-16-2023 End: 05-16-[address] Kristal Sullivan Work Phone: [facility] Work Phone: Start: 05-16-2023 End: 05-16-[address] Kristal Sullivan Work Phone: [facility]-Laboratory Work Phone: Start: 05-14-2023 End: 05-14-[address] Kristal Sullivan Work Phone: [facility] Endocrinology Work Phone: Start: 04-07-2023 End: 04-07-2023 Emergency department patient visit Dr. Kristal Sullivan Work Phone: [facility]-Emergency Department Work Phone: Start: 07-02-2022 End: 07-02-2022 Office outpatient visit 25 minutes Yas Murray APRN.CNS Work Phone: [facility] [place] Comment on above: Class 1 obesity with serious comorbidity in adult, unspecified BMI, unspecified obesity type (Primary Dx); Type 1 diabetes mellitus with other specified complication (HCC); Low blood sugar Start: 05-31-2022 End: 05-31-2022 Patient encounter procedure Kristal Sullivan MD Work Phone: [facility] [place] Comment on above: Class 1 obesity with serious comorbidity in adult, unspecified BMI, unspecified obesity type (Primary Dx); Special screening examination for viral disease; Screening for HIV (human immunodeficiency virus); Essential hypertension Start: 05-07-2022 ambulatory Kristal Ricketts Work Phone: Internal Medicine [facility] Start: 04-30-2022 Telephone encounter Kristal vance MD Work Phone: [facility] [place] Comment on above: Results Start: 04-26-2022 Telephone encounter Kristal vance MD Work Phone: [facility] [place] Comment on above: Patient Question Start: 04-26-2022 End: 04-26-2022 Patient encounter procedure Kristal Sullivan MD Work Phone: [facility] [place] Comment on above: Type 1 diabetes jeanine itus with hyperosmolarity without coma (HCC) (Primary Dx); Gastroesophageal reflux disease without esophagitis; Essential hypertension; Class 1 obesity with serious comorbidity in adult, unspecified BMI, unspecified obesity type Start: 11-02-2021 End: 11-02-2021 Emergency department patient visit Dr. Kristal Sullivan Work Phone: [facility]-Emergency Department Start: 10-08-2021 End: 10-08-[address] Kristal Sullivan Work Phone: [facility] Endocrinology Start: 09-04-2021 Orders Only Kristal Ricketts Work Phone: [facility] [place] Start: 08-30-2021 Orders Only Kristal Ricketts Work Phone: [facility] [place] Start: 07-02-2021 End: 07-02-[address] Kristal Sullivan Work Phone: [facility]-Laboratory, [facility] Start: 07-02-2021 End: 07-02-[address] Kristal Sullivan Work Phone: [facility] Endocrinology Start: 06-04-2021 End: 06-04-[address] Kristal Sullivan Work Phone: [facility] Endocrinology Start: 02-04-2020 End: 02-04-2020 Subsequent hospital visit by physician Xr [facility] Work Phone: Radiology Comment on above: Pain [...] of coronary artery stent placement Lorraine Browne TRIAGE SPECIALISTJosé MiguelC Plan of Treatment Date Care Activity Detail Author Start: 2057 RSV Immunization for Adults (1 - 1-dose 75+ series) RSV Immunization for Adults (1 - 1-dose 75+ series) [facility] Start: 2032 Zoster Vaccines (1 of 2) Zoster Vaccines (1 of 2) [facility] Start: 09-21-2025 Annual PCP Team Chronic Disease Visit Annual PCP Team Chronic Disease Visit [facility] Start: 09-21-2025 Anxiety Screening Anxiety Screening [facility] Start: 09-21-2025 Depression Screening Depression Screening [facility] Start: 08-28-2025 Complete blood count Hemoglobin/Hematocrit [facility] Start: 08-28-2025 Creatinine measurement [facility] Start: 08-28-2025 Potassium measurement Potassium Level [facility] Start: 08-25-2025 Echocardiography Echocardiogram [facility] Start: 08-23-2025 Thyroid stimulating hormone measurement TSH Level [facility] Start: 07-13-2025 Hepatitis B Vaccines (4 of 4 - Risk Dialysis Recombivax 3-dose series) Hepatitis B Vaccines (4 of 4 - Risk Dialysis Recombivax 3-dose series) [facility] Start: 06-15-2025 Annual PCP Team Chronic Disease Visit Annual PCP Team Chronic Disease Visit [facility] Start: 06-15-2025 BP Controlled (<130/80) BP Controlled (<130/80) [facility] Start: 06-15-2025 Complete blood count Hemoglobin/Hematocrit [facility] Start: 06-15-2025 Creatinine measurement Serum Creatinine [facility] Start: 06-15-2025 Hemoglobin A1c measurement Diabetes: Hemoglobin A1C [facility] Start: 06-15-2025 Hepatitis B surface antibody level LDL Cholesterol [facility] Start: 03-23-2025 Hemoglobin A1c measurement HbA1C [facility] Start: 12-21-2024 End: 12-21-2024 Patient encounter procedure 12/21/2024 1:40 PM EDT Office Visit [facility] [place] [address] [place] [address] Kristal Sullivan MD [address] [place] [address] 3 Month F/U [facility] [place] Comment on above: 3 Month F/U Start: 11-29-2024 Influenza vaccination [facility] Start: 10-26-2024 End: 10-26-2024 ambulatory 10/26/2024 3:45 PM EDT Procedure Cardiology [address] [place] [address] Organ transplant candidate [Z76.82] Cardiology Comment on above: Organ transplant candidate [Z76.82] Start: 10-26-2024 End: 10-26-2024 Patient encounter procedure 10/26/2024 3:35 PM EDT Appointment Radiology [address] [place], [place] [id number] Organ transplant candidate [Z76.82] Radiology Comment on above: Organ transplant candidate [Z76.82] Start: 10-26-2024 End: 10-26-2024 Patient encounter procedure 10/26/2024 2:30 PM EDT Office Visit Transplant Center [address] [address] Organ transplant candidate [Z76.82] Transplant Center Comment on above: Organ transplant candidate [Z76.82] Start: 10-26-2024 End: 10-26-2024 Social Work Transplant Center Comment on above: Organ transplant candidate [Z76.82] Start: 10-14-2024 End: 10-14-2024 ambulatory 10/14/2024 9:30 AM EDT [facility] [address] [id number] Organ transplant candidate [Z76.82] Transplant Center Comment on above: Organ transplant candidate [Z76.82] Start: 09-21-2024 End: 09-21-2024 Patient encounter procedure 09/21/2024 11:40 AM EDT Office Visit [facility] [place] [address] [place] [address] Kristal Sullivan MD [address] [place] [address] 3 month follow u [facility] [place] Comment on above: 3 month follow u Start: 09-15-2024 [facility]c [facility] Start: 08-31-2024 Egd insert guide wire dilator passage esophagus EGD GUIDE WIRE INSERTION [facility] Start: 08-31-2024 Egd transoral biopsy single/multiple EGD BIOPSY SINGLE/MULTIPLE [facility] Start: 08-31-2024 Patient discharge [facility] Start: 08-27-2024 Complete blood count Hemoglobin/Hematocrit [facility] Start: 08-27-2024 Creatinine measurement Serum Creatinine [facility] Start: 08-23-2024 Bacteria identified in Blood by Culture Blood Culture [facility] Start: 08-23-2024 Bacteria identified in Urine by Culture Urine Culture [facility] Start: 08-23-2024 Blood culture Blood Culture [facility] Start: 08-23-2024 [facility] Start: 08-23-2024 End: 08-23-2024 [facility] Start: 08-11-2024 Patient discharge [facility] Start: 08-11-2024 Care of hemodialysis equipment [facility] Start: 08-11-2024 Hemodialysis care [facility] Start: 08-11-2024 [facility] Start: 08-11-2024 Following clinical pathway protocol [facility] Start: 08-11-2024 Ambulation without limitation [facility] Start: 08-11-2024 Assessment of risk of venous thromboembolism [facility] Start: 08-11-2024 Catheterization of vein [facility] Start: 08-11-2024 Inhalation therapy procedure [facility] Start: 08-11-2024 Insertion of catheter into peripheral vein [facility] Start: 08-11-2024 Measuring intake and output [facility] Start: 08-11-2024 Oxygen therapy [facility] Start: 08-11-2024 Patient referral to dietitian [facility] Start: 08-11-2024 Providing care according to standard [facility] Start: 08-11-2024 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 [facility] Start: 08-11-2024 Referral to service [facility] Start: 08-11-2024 Tobacco use cessation education [facility] Start: 08-10-2024 End: 08-11-2024 [facility] Start: 08-10-2024 Triacylglycerol lipase measurement [facility] Start: 08-10-2024 Electrocardiographic procedure [facility] Start: 08-10-2024 Verification routine [facility] Start: 08-10-2024 Admission procedure [facility] Start: 08-10-2024 Hospital admission, emergency, from emergency room, medical nature [facility] Start: 08-10-2024 [facility] Start: 07-20-2024 Patient discharge [facility] Start: 07-20-2024 Anesthesia arteries forearm wrist & hand nos ANESTH LWR ARM ARTERY SURG [facility] Start: 07-20-2024 Lig/banding angioaccess arteriovenous fistula LIG/BANDING ANGIOACS AV FSTL [facility] Start: 07-07-2024 Patient discharge [facility] Start: 06-15-2024 End: 06-15-2024 Patient encounter procedure 06/15/2024 1:00 PM EDT Office Visit [facility] [place] [address] [place] [address] Kristal Sullivan MD [address] [place] [address] physical [facility] [place] Comment on above: physical Start: 04-12-2024 End: 04-12-2024 Nursing evaluation of patient and report 04/12/2024 9:45 AM EST Nurse Visit Cardiology [address] [place] [address] Wstr, Nurse Card Admin Formerly [facility] [address] [place] [address] Encounter for other preprocedural examination [Z01.818 Cardiology Comment on above: Encounter for other preprocedural examin ation [Z01.818 Start: 04-12-2024 End: 04-12-2024 Nursing evaluation of patient and report 04/12/2024 8:15 AM EST Nurse Visit Cardiology [address] [place] [id number] Wstr, Nurse Card Admin Formerly [facility] [address] [place] [address] Encounter for other preprocedural examination [Z01.818] Cardiology Comment on above: Encounter for other preprocedural examin ation [Z01.818] Start: 04-12-2024 End: 04-12-2024 Patient encounter procedure [facility] Medi cine Comment on above: Encounter for other preprocedural examin ation [Z01.818] Encounter for other preprocedural examination [Z01.818 Start: 11-30-2023 Covid-19 Vaccine ( season) Covid-19 Vaccine () [facility] Start: 11-30-2023 Influenza vaccination [facility] Start: 11-28-2023 [facility] Start: 11-17-2023 End: 11-17-2023 Nursing evaluation of patient and report 11/17/2023 9:15 AM EDT Nurse Visit Cardiology [address] [place] [phone] Wstr, Nurse Card Admin [facility] [address] [place] [id number] Encounter for other preprocedural examination [Z01.8 Cardiology Comment on above: Encounter for other preprocedural examin ation [Z01.8 Start: 11-17-2023 End: 11-17-2023 Patient encounter procedure Nuclear Medi cine Comment on above: Encounter for other preprocedural examin ation [Z01.8 Start: 08-28-2023 End: 08-28-2023 ambulatory 08/28/2023 4:45 PM EDT Results Only [facility] [address] [place] [address] K/P EVAL FAST TRAK [facility] Comment on above: K/P EVAL FAST TRAK Start: 08-28-2023 End: 08-28-2023 Patient encounter procedure Transplant C enter Comment on above: K/P EVAL FAST TRAK Start: 08-28-2023 End: 08-28-2023 ambulatory 08/28/2023 2:30 PM EDT Education [facility] [address] [place] [address] Vir[address] Stroud, RD [address] [place] [address] K/P EVAL FAST TRAK [facility] Comment on above: K/P EVAL FAST TRAK Start: 08-28-2023 End: 08-28-2023 Patient encounter procedure Radiology Comment on above: K/P EVAL FAST TRAK Start: 08-28-2023 End: 08-28-2023 Patient encounter procedure Transplant C enter Comment on above: K/P EVAL FAST TRAK Start: 08-21-2023 End: 08-21-2023 ambulatory 08/21/2023 8:00 AM EDT [facility] [address] [address] K/P EVAL FAST TRAK Transplant Center Comment on above: K/P EVAL FAST TRAK Start: 08-07-2023 End: 08-29-2024 CT Abdomen and Pelvis WO contrast CT ABD/PEL WO IVCON Radiology Routine Chronic renal failure, stage 4 (severe) (HCC) Pre-transplant evaluation for kidney and pancreas transplant Expected: 08/07/2023, Expires: 08/29/2024 [facility] Work Phone: Comment on above: Expected: 08/07/2023, Expires: Start: 08-01-2023 Patient discharge [facility] Start: 07-04-2023 Blood chemistry [facility] Start: 07-03-2023 Patient discharge [facility] Start: 07-03-2023 Blood chemistry [facility] Start: 07-01-2023 Following clinical pathway protocol [facility] Start: 07-01-2023 Ambulation without limitation [facility] Start: 07-01-2023 Application of elastic bandage [facility] Start: 07-01-2023 Assessment of risk of venous thromboembolism [facility] Start: 07-01-2023 Elevation of affected extremity [facility] Start: 07-01-2023 Incentive spirometry [facility] Start: 07-01-2023 Insertion of catheter into peripheral vein [facility] Start: 07-01-2023 Measuring intake and output [facility] Start: 07-01-2023 Notification of physician [facility] Start: 07-01-2023 Oxygen therapy [facility] Start: 07-01-2023 Patient education [facility] Start: 07-01-2023 Providing care according to standard [facility] Start: 07-01-2023 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 [facility] Start: 07-01-2023 [facility] Start: 07-01-2023 Urinalysis complete panel - Urine [facility] Start: 07-01-2023 Verification routine [facility] Start: 07-01-2023 Admission procedure [facility] Start: 07-01-2023 Hospital admission, emergency, from emergency room, medical nature [facility] Start: 06-01-2023 ANNUAL PCP TEAM CHRONIC DISEASE VISIT ANNUAL PCP TEAM CHRONIC DISEASE VISIT [facility] Start: 06-01-2023 Hepatitis B screening URINE ALBUMIN:CREATININE RATIO [facility] Start: 06-01-2023 Hepatitis B surface antibody level LDL CHOLESTEROL [facility] Start: 04-26-2023 ANNUAL PCP TEAM CHRONIC DISEASE VISIT ANNUAL PCP TEAM CHRONIC DISEASE VISIT [facility] Start: 03-31-2023 Behavioral Health Screening Behavioral Health Screening [facility] Start: 11-29-2022 Covid-19 Vaccine ( season) Covid-19 Vaccine ( season) [facility] Start: 11-29-2022 Influenza vaccination INFLUENZA (Season Ended) [facility] Start: 10-24-2022 Hemoglobin A1c measurement HbA1C [facility] Start: 10-24-2022 Hemoglobin A1c/Hemoglobin.total in Blood HBA1C [facility] Start: 05-07-2022 End: 07-07-2022 ALBUMIN/CREAT RATIO RND UR ALBUMIN/CREAT RATIO RND UR Lab Routine Type 1 diabetes mellitus with hyperosmolarity without coma (HCC) Expected: 05/07/2022, Expires: 07/07/2022 [facility] Work Phone: Comment on above: Expected: 05/07/2022, Expires: 3 Start: 05-07-2022 End: 07-07-2022 Lipid 1996 panel - Serum or Plasma LIPID PANEL BASIC Lab Routine Mixed hyperlipidemia Expected: 05/07/2022, Expires: 07/07/2022 [facility] Work Phone: Comment on above: Expected: 05/07/2022, Expires: 3 Start: 05-07-2022 End: 07-07-2022 SCHEDULE LAB TESTING SCHEDULE LAB TESTING Lab Routine Expected: 05/07/2022, Expires: 07/07/2022 [facility] Work Phone: Comment on above: Expected: 05/07/2022, Expires: 3 Start: 04-26-2022 End: 06-26-2022 Comprehensive metabolic 2000 panel - Serum or Plasma [facility] Work Phone: Comment on above: Expected: 04/26/2022, Expires: 3 Start: 04-26-2022 End: 06-26-2022 Thyrotropin [Units/volume] in Serum or Plasma [facility] Work Phone: Comment on above: Expected: 04/26/2022, Expires: 3 Start: 03-31-2022 DEPRESSION ASSESSMENT DEPRESSION ASSESSMENT [facility] Start: 03-14-2022 ANNUAL PCP TEAM CHRONIC DISEASE VISIT ANNUAL PCP TEAM CHRONIC DISEASE VISIT [facility] Start: 11-29-2021 Influenza vaccination [facility] Start: 05-12-2021 Hemoglobin A1c/Hemoglobin.total in Blood HBA1C [facility] Start: 02-03-2021 3 comp foot exam completed DIABETIC FOOT EXAM [facility] Start: 02-03-2021 Diabetic foot examination Diabetic Foot Exam [facility] Start: 09-16-2020 Glaucoma screening Dilated Retinal Exam [facility] Start: 09-16-2020 Hepatitis C antibody, confirmatory test DILATED RETINAL EXAM [facility] Start: 04-23-2020 Hepatitis B screening URINE ALBUMIN:CREATININE RATIO [facility] Start: 11-21-2019 Adult depression screening assessment DEPRESSION SCREENING [facility] Start: 07-18-2019 Hepatitis B surface antibody level LDL CHOLESTEROL [facility] Start: 01-02-2019 DTaP/Tdap/Td Vaccines (1 - Tdap) DTaP/Tdap/Td Vaccines (1 - Tdap) [facility] Start: 01-02-2019 Urine microalbumin profile [facility] Start: 07-30-2011 PNEUMOCOCCAL (2 - PCV) PNEUMOCOCCAL (2 - PCV) [facility] Start: 07-30-2011 Pneumococcal vaccination Pneumococcal Vaccine (2 of 2 - PCV) [facility] Start: 07-30-2011 Pneumococcal Vaccine: Pediatrics (0 to 5 Years) and At-Risk Patients (6 to 49 Years) (2 of 2 - PCV) Pneumococcal Vaccine: Pediatrics (0 to 5 Years) and At-Risk Patients (6 to 49 Years) (2 of 2 - PCV) [facility] Start: 2001 Hepatitis A Vaccine (1 of 2 - Risk 2-dose series) Hepatitis A Vaccine (1 of 2 - Risk 2-dose series) [facility] Start: 2001 HEPATITIS B (1 of 3 - Risk 3-dose series) HEPATITIS B (1 of 3 - Risk 3-dose series) [facility] Start: 2001 Hepatitis B Vaccine (1 of 3 - 19+ 3-dose series) Hepatitis B Vaccine (1 of 3 - 19+ 3-dose series) [facility] Start: 2001 Shingrix Vaccine (1 of 2) Shingrix Vaccine (1 of 2) [facility] Start: 2000 Anxiety Screening Anxiety Screening [facility] Start: 2000 BP CONTROLLED (<130/80) BP CONTROLLED (<130/80) [facility] Start: 2000 Depression Screening Depression Screening [facility] Start: 2000 HEPATITIS C SCREENING HEPATITIS C SCREENING [facility] Start: 2000 Hepatitis C screening Hepatitis C Screening [facility] Start: 2000 HIV SCREENING HIV SCREENING [facility] Start: 2000 HIV screening HIV Screening [facility] Start: 08-04-1995 Varicella vaccination Varicella Vaccines (1 of 2 - 13+ 2-dose series) [facility] Start: 1994 Depression Screening Depression Screening [facility] Start: 1992 Diabetic foot examination Diabetes: Foot Exam [facility] Start: 1992 Glaucoma screening Diabetes: Retinopathy Screening [facility] Start: 1992 Preventive dental service Diabetes: Dental Exam [facility] Start: 08-04-1987 COVID-19 VACCINE (#1) COVID-19 VACCINE (#1) [facility] Start: 08-04-1983 MMR Vaccines (1 of 1 - Standard series) MMR Vaccines (1 of 1 - Standard series) [facility] Start: 02-03-1983 COVID-19 VACCINE (#1) COVID-19 VACCINE (#1) [facility] Start: 1982 Cyanocobalamin vitamin b-12 Vitamin B-12 [facility] Start: 1982 Diabetes: Celiac Disease Screening Diabetes: Celiac Disease Screening [facility] Start: 1982 HEPATITIS B (1 of 3 - 3-dose series) HEPATITIS B (1 of 3 - 3-dose series) [facility] Start: 1982 HIV screening HIV Screening [facility] Start: 1982 Lipid panel Lipid Panel [facility] End: 08-28-2023 ALLOGEN SOT REC RPT [facility] Comment on above: ONCE for 1 Occurrences starting 08/28/19 24 until 08/28/2023 Anion gap measurement [facility] Anion gap measurement [facility] Bacteria identified in Blood by Culture [facility] Work Phone: BUN/Creatinine ratio [facility] BUN/Creatinine ratio [facility] Calcium [Mass/volume ] in Serum or Plasma [facility] Calcium [Mass/volume ] in Serum or Plasma [facility] Carbon dioxide, tota l [Moles/volume] in Serum or Plasma [facility] Carbon dioxide, tota l [Moles/volume] in Serum or Plasma [facility] End: 05-28-2025 CBC panel - Blood by Automated count COMPLETE BLOOD COUNT Lab Routine Type 1 diabetes mellitus with other specified complication (HCC) Every 6 months for 12 Occurrences starting 05/28/2024 until 05/28/2025 [facility] Comment on above: Every 6 months for 12 Occurrences starti ng 05/28/2024 until 05/28/2025 Chloride [Moles/volu me] in Serum or Plasma [facility] Chloride [Moles/volu me] in Serum or Plasma [facility] End: 05-28-2025 Comprehensive metabolic 2000 panel - Serum or Plasma COMPREHENSIVE METABOLIC PANEL Lab Routine Type 1 diabetes mellitus with other specified complication (HCC) Every 6 months for 12 Occurrences starting 05/28/2024 until 05/28/2025 [facility] Comment on above: Every 6 months for 12 Occurrences starti ng 05/28/2024 until 05/28/2025 Creatinine [Moles/vo lume] in Serum or Plasma [facility] Creatinine [Moles/vo lume] in Serum or Plasma [facility] Glucose [Mass/volume ] in Serum or Plasma [facility] Glucose [Mass/volume ] in Serum or Plasma [facility] End: 05-28-2025 Hemoglobin A1c in Blood HEMOGLOBIN A1C Lab Routine Type 1 diabetes mellitus with other specified complication (HCC) Every 3 months for 24 Occurrences starting 05/28/2024 until 05/28/2025 [facility] Work Phone: Comment on above: Every 3 months for 24 Occurrences starti ng 05/28/2024 until 05/28/2025 Hemoglobin A1c/Hemoglobin.total in Blood HEMOGLOBIN A1C (POC) Lab Routine Type 1 diabetes mellitus with hyperosmolarity without coma (HCC) Ordered: 04/26/2022 [facility] Work Phone: Comment on above: Ordered: 04/26/2022 End: 05-28-2025 Lipid 1996 panel - Serum or Plasma LIPID PANEL BASIC Lab Routine Type 1 diabetes mellitus with other specified complication (HCC) Every 6 months for 12 Occurrences starting 05/28/2024 until 05/28/2025 [facility] Comment on above: Every 6 months for 12 Occurrences starti ng 05/28/2024 until 05/28/2025 Measurement of renal function [facility] Measurement of renal function [facility] End: 09-26-2024 NM Heart Perfusion W stress and W radionuclide IV NM CARDIAC PERF STRESS/PHARM Radiology Routine Encounter for other preprocedural examination 1 Occurrences starting 08/28/2023 until 09/26/2024 [facility] Work Phone: Comment on above: 1 Occurrences starting 08/28/2023 until 09/26/2024 Patient Education [facility] Work Phone: Patient referral [facility] Work Phone: Potassium [Moles/vol ume] in Serum or Plasma [facility] Potassium [Moles/vol ume] in Serum or Plasma [facility] Radiologic exam esop hagus double contrast study [facility] Sodium [Moles/volume ] in Serum or Plasma [facility] Sodium [Moles/volume ] in Serum or Plasma [facility] End: 05-28-2025 Thyrotropin [Units/volume] in Serum or Plasma THYROID STIMULATING HORMONE Lab Routine Type 1 diabetes mellitus with other specified complication (HCC) Every 3 months for 24 Occurrences starting 05/28/2024 until 05/28/2025 [facility] Comment on above: Every 3 months for 24 Occurrences starti ng 05/28/2024 until 05/28/2025 Troponin T.cardiac [Mass/volume] in Serum or Plasma by High sensitivity method [facility] Urea nitrogen [Mass/ volume] in Serum or Plasma [facility] Urea nitrogen [Mass/ volume] in Serum or Plasma [facility] Urine culture [facility] US AV fistula [facility] Immunizations Immunization Date Immunization Notes Care Provider Nilson sherwood 09-21-2024 pneumococcal conjuga te (PCV20) vaccine, 20 valent (PREVNAR 20) Kristal Sullivan MD Work Phone: [facility] 09-21-2024 pneumococcal Conjuga te, unspecified formulation Kristal Sullivan MD Work Phone: [facility] Work Phone: 07-13-2024 Hepatitis B vaccine (recombinant), CpG adjuvanted Roro Pollard RN [facility] 06-07-2024 Hepatitis B vaccine (recombinant), CpG adjuvanted Roro Pollard RN [facility] 05-10-2024 Hepatitis B vaccine (recombinant), CpG adjuvanted Roro Pollard RN [facility] Work Phone: 01-01-2019 influenza, injectabl e, quadrivalent, contains preservative Kristal Sullivan MD Work Phone: [facility] 01-01-2019 tetanus and diphther ia toxoids, adsorbed, preservative free, for adult use (5 Lf of tetanus toxoid and 2 Lf of diphtheria toxoid) Kristal Sullivan MD Work Phone: [facility] 01-01-2019 influenza virus vacc ine, unspecified formulation Concha Araiza [place] [facility] 02-09-2018 influenza, injectabl e, quadrivalent, preservative free Dr. Kristal Sullivan Work Phone: [facility] 02-09-2018 influenza, seasonal, injectable Dr. Kristal Sullivan Work Phone: [facility] Work Phone: 02-09-2018 influenza, seasonal, injectable, preservative free Cecilia Rodriguez RN [facility] 01-20-2017 influenza, injectabl e, quadrivalent, contains preservative Kristal Sullivan MD Work Phone: [facility] Work Phone: 12-18-2015 tetanus and diphther ia toxoids, adsorbed, preservative free, for adult use (2 Lf of tetanus toxoid and 2 Lf of diphtheria toxoid) Dr. Kristal Sullivan Work Phone: [facility] 12-30-2011 influenza virus vacc ine, unspecified formulation Kristal Sullivan MD Work Phone: [facility] Work Phone: 07-29-2010 pneumococcal polysaccharide vaccine, 23 valent Kristal Sullivan MD Work Phone: [facility] Work Phone: Payers Date Payer Category Payer Medicaid [facility] [place] [id number] 2023 Unknown [id number] 2023 Self-pay [id number] 2018 Medicaid [employer] [id number] 2018-Present [phone] [address] [place] [address] Medicaid [id number] 2018 Medicaid [id number]. [id number] 2015 Unknown [id number] 2015 Unknown [id number] 1982 Unknown [id number] 2.16.840.1.340067.3.579.2.627 Unknown [id number] 2.16840.1.105789.3.579.2.462 Unknown [id number] 2.16840.1.399193.3.579.2.462 Unknown [id number] 2.16840.1.732090.3.579.2.462 Unknown [id number] 2.16.840.1.627786.3.579.2.462 Unknown [id number] 2.16.840.1.419795.3.579.2.462 Unknown [id number] 2.16.840.1.525223.3.579.2.462 Unknown [id number] 2.16.840.1.213661.3.579.2.462 Unknown [id number] 2.16840.1.618412.3.579.2.462 Unknown [id number] 2.16.840.1.854128.3.579.2.462 Unknown [id number] 2.16.840.1.485740.3.579.2.462 Unknown [id number] 2.16.840.1.088861.3.579.2.462 Unknown [id number] 2.16840.1.225911.3.579.2.462 Unknown [id number] 2.840.1.206036.3.579.2.462 Unknown [id number] 2.840.1.301816.3.579.2.462 Unknown [id number] 2.840.1.369098.3.579.2.462 Unknown [id number] 2.840.1.600952.3.579.2.462 Unknown [id number] 2.840.1.454449.3.579.2.462 Unknown [id number] 2.840.1.658872.3.579.2.462 Unknown [id number] 2.840.1.659847.3.579.2.462 Unknown [id number] .840.1.400849.3.579.2.462 Unknown [id number] 2.840.1.253625.3.579.2.462 Unknown [id number] .840.1.488887.3.579.2.462 Unknown [id number] .840.1.001284.3.579.2.462 Unknown [id number] 2.840.1.299558.3.579.2.462 Unknown [id number] 2.840.1.757604.3.579.2.462 Unknown [id number] 2.16840.1.291944.3.579.2.462 Unknown [id number] 2.16.840.1.792730.3.579.2.462 Unknown [id number] 2..840.1.858908.3.579.2.462 Unknown [id number] 2.16840.1.663425.3.579.2.462 Unknown [id number] 2.16.840.1.987966.3.579.2.462 Unknown [id number] 2.840.1.718414.3.579.2.462 Unknown [id number] 2.840.1.216484.3.579.2.462 Unknown [id number] 2.840.1.378228.3.579.2.462 Unknown [id number] 2.840.1.287943.3.579.2.462 Unknown [id number] 2.840.1.982481.3.579.2.462 Unknown [id number] 2.840.1.414550.3.579.2.462 Unknown [id number] 2.840.1.336903.3.579.2.462 Unknown [id number] 2.840.1.123894.3.579.2.462 Unknown [id number] 2.840.1.964615.3.579.2.462 Unknown [id number] 2.840.1.322165.3.579.2.462 Unknown [id number] 2.840.1.507292.3.579.2.462 Unknown [id number] 2.840.1.613365.3.579.2.462 Unknown [id number] 2.840.1.230251.3.579.2.462 Unknown [id number] 2.840.1.584558.3.579.2.462 Unknown [id number] 2.840.1.389972.3.579.2.462 Unknown [id number] 2.16.840.1.937165.3.579.2.462 Unknown [id number] 2.16.840.1.762341.3.579.2.462 Unknown [id number] 2.16.840.1.641147.3.579.2.462 Unknown [id number] 2.16.840.1.461747.3.579.2.462 Unknown [id number] 2.16.840.1.710958.3.579.2.462 Unknown [id number] 2.16.840.1.746260.3.579.2.462 Unknown [id number] 2.16.840.1.901956.3.579.2.462 Unknown [id number] 2.16.840.1.529035.3.579.2.462 Unknown [id number] 2.16840.1.560685.3.579.2.462 Unknown [id number] 2.16840.1.280468.3.579.2.462 Unknown [id number] 2.840.1.981995.3.579.2.462 Social History Date Type Detail Facility Start: 07-02-2021 End: 08-01-2023 Tobacco smoking status IAIS Unknown if ever smoked [facility] Start: 11-13-2019 None [facility] Start: 01-16-2020 With Family [facility] Start: 10-10-2020 Non-smoker [facility] Start: 1980 Sex Assigned At Male [facility] Start: 04-26-2022 End: 09-07-2024 Tobacco smoking status NHIS Never smoked tobacco [facility] Start: 03-14-2021 End: 09-21-2024 Alcohol intake Current non-drinker of alcohol (finding) [facility] Start: 1980 Sex Assigned At Not on file [facility] Start: 04-26-2022 End: 08-23-2024 Tobacco use and exposure Smokeless tobacco non-user [facility] Work Phone: Start: 07-02-2022 History SDOH Alcohol Frequency 1 [facility] Start: 07-02-2022 History SDOH Alcohol Std Drinks 0 [facility] Start: 07-02-2022 History SDOH Social Connections Phone 5 [facility] Start: 07-02-2022 History SDOH Social Connections Orthodoxy 3 [facility] Start: 07-02-2022 History SDOH Social Connections Living 8 [facility] Start: 07-02-2022 History SDOH Transport Med 2 [facility] Start: 07-02-2022 End: 09-21-2024 History of Social function [facility] Start: 07-02-2022 End: 09-21-2024 Social connection and isolation panel [facility] Do you belong to any clubs or organizations such as islam groups, unions, fraternal or athletic groups, or school groups? Yes [facility] Are you now , , , , never or living with a partner? Living with partner [facility] How often to you hav e a drink containing alcohol? Never [facility] How many standard dr inks containing alcohol do you have on a typical day? Patient does not drink [facility] Do you feel stress - tense, restless, nervous, or anxious, or unable to sleep at night because your mind is troubled all the time - these days [OSQ] Not at all [facility] (I/We) worried wheth er (my/our) food would run out before (I/we) got money to buy more. Never true [facility] In the past 12 month s, was there a time when you were not able to pay the mortgage or rent on time? No [facility] Tobacco smoking status No Smokin g Status Entered [facility] Start: 01-05-2020 End: 02-04-2020 Exposure to SARS-CoV-2 (event) Not sure [facility] Start: 06-21-2024 End: 08-23-2024 Sex Male (finding) [facility] Start: 08-23-2024 Alcoholic beverage intake Life time non-drinker (finding) [employer] [facility] Procedure Code Equipment Code Equipment Origin al Text Equipment Identifier Dates Insertion, catheter, hemodialysis Double-lumen haemodialysis catheter, implantable [id number] FDA Start: 01-30-2024 Creation, AV fistula Ligation cl ip, metallic [id number] FDA Start: 08-01-2023 Creation, AV fistula Ligation cl ip, metallic [id number] FDA Start: 08-01-2023 Creation, AV fistula Ligation cl ip, metallic ()[id number] FDA Start: 08-01-2023 Creation, AV fistula Ligation cl ip, metallic [id number] FDA Start: 08-01-2023 Pen Needle, Diab etic (Bd Ultra-Fine Carol Pen Needle) 32 gauge x 5/32 needle Start: 10-10-2020 Pen Needle, Diab etic (Bd Ultra-Fine Carol Pen Needle) 32 gauge x 5/32 needle Start: 01-07-2020 End: 10-10-2020 [id number], [id number], [id number], [id number], [id number], [id number] Start: 07-24-2016 End: 09-21-2024 Comment on above: [...] 10-10-2020 End: 02-26-2022 Drug-eluting coronary artery stent, lqn-ztdarvcmmiqdu-sv lymer-coated ([id number] FDA Start: 01-23-2024 Blood Sugar Diagnostic (Freestyle [...] Assessment Result Facility 08-11-2024 Functional status Ambulates [facility] Work Phone: 07-03-2023 Functional status Up ad renard [facility] Work Phone: 07-02-2023 Functional status Up ad renard [facility] Work Phone: 08-29-2014 Are you deaf, or do you have serious difficulty hearing No 08/29/2014 9:52 AM EDLalita Cornelius LPN No [facility] 08-29-2014 Are you blind, or do you have serious difficulty seeing, even when wearing glasses No 08/29/2014 9:52 AM EDT Lalita Morrow LPN No [facility] 08-29-2014 Do you have serious difficulty walking or climbing stairs No 08/29/2014 9:52 AM EDT Lalita Morrow LPN No [facility] 08-29-2014 Do you have difficul ty dressing or bathing No 08/29/2014 9:52 AM SYLVIAT Lalita Morrow LPN No [facility] 08-29-2014 Because of a physica l, mental, or emotional condition, do you have difficulty doing errands alone such as visiting a physician's office or shopping No 08/29/2014 9:52 AM Lalita Goode LPN No [facility] Mental Status Date Assessment Result Facility 08-31-2024 Cognitive function Voice/Name [facility] Work Phone: 08-23-2024 Cognitive function Level Of Cons ciousness Awake;Alert;Appropriate;Fol lows Commands [facility] Work Phone: 08-11-2024 Cognitive function Voice/Name [facility] Work Phone: 08-10-2024 Cognitive function Voice/Name [facility] Work Phone: 07-20-2024 Cognitive function Voice/Name [facility] Work Phone: 04-20-2024 Cognitive function Level Of Cons ciousness Awake;Alert;Appropriate;Fol lows Commands [facility] Work Phone: 08-01-2023 Cognitive function Voice/Name [facility] Work Phone: 07-03-2023 Cognitive function Voice/Name [facility] Work Phone: 07-01-2023 Cognitive function Voice/Name [facility] Work Phone: 04-07-2023 Cognitive function Level Of Cons ciousness Awake;Alert;Appropriate;Fol lows Commands [facility] Work Phone: 11-02-2021 Cognitive function Level Of Cons ciousness Awake;Alert;Appropriate [facility] Work Phone: 08-29-2014 Because of a physica l, mental, or emotional condition, do you have serious difficulty concentrating, remembering, or making decisions No 08/29/2014 9:52 AM EDT Lalita Morrow LPN No [facility] Clinical Notes 02-04-2020 to 10-14-2024 Bg Jennings RN - 10/14/2024 11:07 AM EDTTelephone Encounter - Sindy Alonzo - 10/06/2024 11:10 AM EDTTelephone Encounter - Sindy Alonzo - 10/06/2024 11:10 AM EDTPatient Instructions Note Date & Type Note Facility 10-14-2024 Note HNO ID: [id number] Author: BG JENNINGS RN Service: ? Author [...] results of studies that were obtained outside [facility] facilities. -Explained lifetime immunosuppression therapy and frequency of blood draws/labs post-op and post-op course of treatment. Method of Instruction: Group class instruction Written instruction/Handouts Verbal instruction Video Computer Patient/Family Response: Patient asked appropriate questions, which were answered satisfactorily. Bg Jennings RN Kidney/Pancreas Pre-Driver Education Road Instructor [facility] 10-14-2024 History of Present illness [...] results of studies that were obtained outside [facility] facilities. -Explained lifetime immunosuppression therapy and frequency of blood draws/labs post-op and post-op course of treatment. Method of Instruction: Group class instruction Written instruction/Handouts Verbal instruction Video Computer Patient/Family Response: Patient asked appropriate questions, which were answered satisfactorily. Bg Jennings RN Kidney/Pancreas Pre-Driver Education Road Instructor documented in this encounter [facility] 10-06-2024 Telephone encounter Note Spoke with patient to confirm scheduled waitlist kidney transplant re-evaluation for next week. Did they receive their schedule? Yes Remind the patient to sign up for MyChart if they have not already - Yes Sindy Alonzo [facility] 10-06-2024 Miscellaneous Notes Spoke with patient to confirm scheduled waitlist kidney transplant re-evaluation for next week. Did they receive their schedule? Yes Remind the patient to sign up for MyChart if they have not already - Yes Sindy Alonzo documented in this encounter [facility] 09-21-2024 Note HNO ID: [id number] Author: KRISTAL SULLIVAN MD Service: ? Author Type: Physician Type: Progress Notes Filed: 09/22/2024 11:51 Note Text: Reason for Visit Follow up HPI Laurie Gonzales is a 44-year-old male with a history of LA, CKD on dialysis, and dysphagia, presenting for follow-up after a recent hospitalization for a port infection. Laurie was hospitalized on the for a port infection related to his dialysis. He initially presented to the ED with emesis and a fever of 103 degreeF, and was subsequently transferred to [place], where he was admitted for a week. The infection necessitated the removal of his port. He is currently on IV antibiotics, with his last dose scheduled for this Friday. During his hospitalization, he was evaluated by a hand i tube bender due to dysphagia. An endoscopy revealed a stricture, which was dilated, and biopsies were taken from erythematous areas, all of which returned negative results. Laurie has a functioning AV fistula in his left forearm, which has been in place since January 04 of last year. He is currently undergoing dialysis at [facility] on Mondays, Wednesdays, and Fridays. He reports being contacted by the [facility] as a backup for a pancreas transplant and is hopeful to return to work soon. Laurie was previously employed part-time at [employer] but was let go due to multiple surgeries and his current medical condition. He has since been approved for Social Security but had to wait five months without income before receiving benefits. He is not eligible for unemployment due to his part-time status. He is under the care of brine plant operator Dr. Mckeon, whom he has seen twice. Most of his interactions are with Dr. Mckeon's nurse at [facility], whom he describes as super nice. Laurie has a phone appointment with the transplant center at the [facility] on September 04 and an in-person appointment [...] 20 mg tablet alcohol swabs padm Insulin [place], Disposable, (BD ULTRA-FINE CAROL PEN NEEDLE) 32 gauge x 5/32 ndle Zn Mdunysd-Nyhlpbobjjy-Uhk (AMERIGEL) gel Nut.Tx.Gluc.Intol,Lac-Free,Soy (GLUCERNA SHAKE) liqd insulin [...] dialysis catheter, necessitating removal and hospitalization at [place] for over a week. Completed a course [...] the left f (more content not included)... [facility] 06-24-2025 History of Present illness Narrative Reason for Visit Follow up HPI Laurie Gonzales is a 44-year-old male with a history of LA, CKD on dialysis, and dysphagia, presenting for follow-up after a recent hospitalization for a port infection. Laurie was hospitalized on the for a port infection related to his dialysis. He initially presented to the ED with emesis and a fever of 103 degreeF, and was subsequently transferred to [place], where he was admitted for a week. The infection necessitated the removal of his port. He is currently on IV antibiotics, with his last dose scheduled for this Friday. During his hospitalization, he was evaluated by a hand i tube bender due to dysphagia. An endoscopy revealed a stricture, which was dilated, and biopsies were taken from erythematous areas, all of which returned negative results. Laurie has a functioning AV fistula in his left forearm, which has been in place since January 04 of last year. He is currently undergoing dialysis at [facility] on Mondays, Wednesdays, and Fridays. He reports being contacted by the [facility] as a backup for a pancreas transplant and is hopeful to return to work soon. Laurie was previously employed part-time at [employer] but was let go due to multiple surgeries and his current medical condition. He has since been approved for Social Security but had to wait five months without income before receiving benefits. He is not eligible for unemployment due to his part-time status. He is under the care of brine plant operator Dr. Mckeon, whom he has seen twice. Most of his interactions are with Dr. Mckeon's nurse at [facility], whom he describes as super nice. Laurie has a phone appointment with the transplant center at the [facility] on September 04 and an in-person appointment [...] 20 mg tablet alcohol swabs padm Insulin [place], Disposable, (BD ULTRA-FINE CAROL PEN NEEDLE) 32 gauge x 5/32 ndle Zn Srgwomi-Xvjvatbtmdw-Qdx (AMERIGEL) gel Nut.Tx.Gluc.Intol,Lac-Free,Soy (GLUCERNA SHAKE) liqd insulin [...] dialysis catheter, necessitating removal and hospitalization at [place] for over a week. Completed a course [...] in the left forearm, attending sessions at [facility] on Friday, Friday, and Friday. Patient [...] excuse any unintended typographical errors. Recording using [employer] software for draft documentation of the visit was discussed with the patient/authorized customer solutions representative; all questions welcomed and answered. Patient/authorized customer solutions representative agreed to proceed Kristal Sullivan MD documented in this encounter [facility] 09-21-2024 Instructions Kristal Sullivan MD - 09/21/2024 12:20 PM EDT We discussed your recent health concerns and ongoing care: - Dialysis and Fistula Use: - You are currently undergoing dialysis at [facility] on Friday, Friday, and Friday. - Your [...] You recently underwent an endoscopy with your hand i tube bender, Dr. Andres Angulo. A stricture in your [...] ordered by the transplant team at the [facility]. You can complete this testing locally [...] - Your next phone appointment with the [facility] transplant team is scheduled for September 04. You will also have an in-person appointment at the [facility] on September 21. - Complete the ordered blood work at our facility before your transplant appointments. - Continue attending dialysis sessions as scheduled and notify your brine plant operator, Dr. Mckeon, or his nurse if you experience any issues. - If you develop any new symptoms, such as fever, worsening fatigue, or signs of infection, please contact our office immediately. Please let us know if you have any additional questions or concerns. documented in this encounter [facility] 09-16-2024 Radiology Diagnostic study note [facility] Imaging Services [address] [place] [id number] Esophagus Dual Contrast MR#: [id number] Acct: [id number] Name: LAURIE GONZALES Rep #: [id number] : 1980 M 44 From: Pet er Peer DO PCP: Dr. Kristal Sullivan MD Status: REG C EULALIO Study:Esophagus Dual Contrast Date of Exam: 09/16/24 Exam# [id number] Ordering Dr: Kalina Payne ADDENDUM by Dr. [...] gastroesophageal junction. Endoscopic correlation recommended. Reading Location: [facility]1 09/16/24 1105 Date cc: RAVINDER Payne; Dr. [...] Contrast IMPRESSION: Tertiary esophageal contractions Reading Location: [facility] CC: RAVINDER Payne; Dr. Kristal Sullivan MD ~ Surgical Supply Assistant: Signed [facility] 09-13-2024 Note HNO ID: [id number] Author: MARTHA CHEATHAM RRT Service: ? Author [...] and was discharged to receive antibiotics at [facility] dialysis sessions until September 23. Dr Tamayo made aware of findings, MD reviewed Pt with Dr Ferguson. MDS would like to consult ID in am if pt were to receive an Offer Martha Cheatham RRT Driver Education Road Instructor [facility] 09-13-2024 History of Present illness [...] and was discharged to receive antibiotics at [facility] dialysis sessions until September 23. Dr Tamayo made aware of findings, MD reviewed Pt with Dr Ferguson. MDS would like to consult ID in am if pt were to receive an Offer Martha Cheatham SUPPLIER DEVELOPMENT MANAGER Driver Education Road Instructor documented in this encounter [facility] 09-07-2024 Progress note [facility] 08-31-2024 Consult note [facility] 08-31-2024 Procedure note [facility] 08-31-2024 Procedure note [facility] 08-31-2024 History and physi digna note [facility] 08-31-2024 Note [facility] 08-31-2024 Consult note [facility] 08-28-2024 Note Attestation with edits by Maria [...] a 44 y.o. male that presented to [facility] on 08/23/2024 and was admitted for sepsis [...] These medications were sent to [id number] - [place], [place] - [address] [facility] [address] [facility] [id number] amLODIPine 10 MG tablet aspirin 81 MG [...] Electronically signed by (more content not included)... [facility] 08-28-2024 Note Nephrology Progress Note Following [...] MWF HD - continue HD MWF at [facility] tammy - Dr Diaz OP brine plant operator - right TDC CDI removed for line [...] any questions or concerns Kim Blackwell APRN SPRIGGER A-G TRIAGE SPECIALIST [facility] [place] [phone] Pt seen and examined independently by me. I reviewed with PAPER GRADER-SPRIGGER the medical history and the findings on physical examination. I discussed the patient?s diagnosis and concur with the treatment plan as documented in his note. Please call [phone] or message me through [employer] with any questions or concerns. [facility] 08-28-2024 History of Present illness Narrative [...] MWF HD - continue HD MWF at [facility] tammy - Dr Diaz OP brine plant operator - right TDC CDI removed for line [...] any questions or concerns Kim Blackwell APRN SPRIGGER A-G TRIAGE SPECIALIST [facility] [place] [phone] Pt seen and examined independently by me. I reviewed with PAPER GRADER-SPRIGGER the medical history and the findings on physical examination. I discussed the patient s diagnosis and concur with the treatment plan as documented in his note. Please call [phone] or message me through [employer] with any questions or concerns. Department of Internal Medicine Division of Endocrinology, Diabetes, & Metabolism Endocrinology Note Patient Name: Farrah Gonzales : 1980 AGE: 44 y.o. Room/Bed: [facility]/[address] Admission Date: 08/23/2024 Visit Date: 08/28/2024 Reason for Endocrine Consult: Type 1 diabetes mellitus on insulin pump. Provider/Team Requesting Consult: Brayan Barros PCP: Kristal Sullivan MD Outpt Nursing Professor: Yes . Jace Ko MD at outside [...] insulin pump. 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 SUBJECTIVE/HPI: CHIEF COMPLAINT: No chief complaint [...] for the last 3 years, with a Frugoton G6 CGM. He uses auto mode on [...] found for: CHOLHDLRATIO No results found for: [id number] Lab Results Component Value Date TSH 2.48 08/23/2024 Radiology reportsas per the Radiologist Radiology: CT chest abdomen pelvis with contrast Result Date: 08/23/2024 Patient Name: FARRAH GONZALES : 1980 [facility]#: [id number] Exam Date/Time: 08/23/2024 14:56 Procedure: CT CHEST [...] 08/23/2024 [facility] Name[facility] 1980 [id number] Exam Date/Time: 08/23/2024 13:22 Procedure: XR CHEST [...] 12.6 ABGs: No results for input(s): PHART, FWF3FYG, PO2ART, RMY2WDJ, SO2ART, U8SPEQGC in the last 72 hours. Lactic Acid: [...] liver enzymes - Per HPB, MRI from [place] shows liver hemangioma so no surgical intervention [...] center EOT 09/22. 7AM-5PM: contact resident on [facility] Med D (find by hovering over attending's name on left side of patient's chart) 5PM-7AM: contact AI3 res Images from the original note were not included. [facility] - Infectious Diseases Advanced Practice Provider Progress [...] be of moderate complexity. Tracy GEORGE PA-C [facility] Infectious Disease Nephrology Progress Note Following for [...] MWF HD - continue HD MWF at [facility] tammy - Dr Diaz OP brine plant operator - right TDC CDI removed for line [...] any questions or concerns Kim Blackwell APRN SPRIGGER A-G TRIAGE SPECIALIST [facility] [place] [phone] Pt seen and examined independently by me. I reviewed with PAPER GRADER-SPRIGGER the medical history and the findings on physical examination. I discussed the patient s diagnosis and concur with the treatment plan as documented in his note. Please call [phone] or message me through [employer] with any questions or concerns. Department of Internal Medicine Division of Endocrinology, Diabetes, & Metabolism Endocrinology Note Patient Name: Farrah Gonzales : 1980 AGE: 44 y.o. Room/Bed: [facility]/[address] Admission Date: 08/23/2024 Visit Date: 08/27/2024 Reason for Endocrine Consult: Type 1 diabetes mellitus on insulin pump. Provider/Team Requesting Consult: Brayan Barros PCP: Kristal Sullivan MD Outpt Nursing Professor: Yes . Jace Ko MD at outside [...] insulin pump. 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 SUBJECTIVE/HPI: CHIEF COMPLAINT: No chief complaint [...] found for: CHOLHDLRATIO No results found for: [id number] Lab Results Component Value Date TSH 2.48 08/23/2024 Radiology reportsas per the Radiologist Radiology: CT chest abdomen pelvis with contrast Result Date: 08/23/2024 Patient Name: FARRAH [facility]ONZALES [facility] 1980 [id number] Exam Date/Time: 08/23/2024 14:56 Procedure: CT CHEST [...] 08/23/2024 Patient Name: FARRAH GONZALES [facility] 1980 [id number] Exam Date/Time: 08/23/2024 13:22 Procedure: XR CHEST [...] 12.8 ABGs: No results for input(s): PHART, XFO8GFD, PO2ART, LOG6CRK, SO2ART, U0BAKCJV in the last 72 hours. Lactic Acid: [...] liver enzymes - Per HPB, MRI from [place] shows liver hemangioma so no surgical intervention [...] from the original note were not included. [facility] - Infectious Diseases Advanced Practice Provider Progress [...] be of moderate complexity. Tracy GEORGE PA-C [facility] Infectious Disease Nephrology Progress Note Following for [...] MWF HD - continue HD MWF at [facility] tammy - Dr Diaz OP brine plant operator - right TDC CDI removed for line [...] any questions or concerns Kim Blackwell APRN SPRIGGER A-G TRIAGE SPECIALIST [facility] [place] [phone] Pt seen and examined independently by me. I reviewed with , REEMA-DEJAH the medical history and the findings on physical examination. I discussed the patient s diagnosis and concur with the treatment plan as documented in his note. Please call [phone] or message me through [employer] with any questions or concerns. Department of Internal Medicine Division of Endocrinology, Diabetes, & Metabolism Endocrinology Note Patient Name: Farrah Gonzales : 1980 AGE: 44 y.o. Room[facility]Bed: [facility] Admission Date: 08/23/2024 Visit Date: 08/26/2024 Reason for Endocrine Consult: Type 1 diabetes mellitus on insulin pump. Provider/Team Requesting Consult: Brayan Barros PCP: Kristal Sullivan MD Outpt Nursing Professor: Yes . Jace Ko MD at outside [...] insulin pump. 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 SUBJECTIVE/HPI: CHIEF COMPLAINT: No chief complaint [...] for the last 3 years, with a Frugoton G6 CGM. He uses auto mode on [...] found for: CHOLHDLRATIO No results found for: [id number] Lab Results Component Value Date TSH 2.48 [...] 13.0 ABGs: No results for input(s): PHART, DGT4AIK, PO2ART, RDV3LED, SO2ART, U4OKJIFP in the last 72 hours. Lactic Acid: [...] consulted, appreciate recs. -Per HPB, MRI from [place] shows liver hemangioma so no surgical intervention [...] blood culture finalization 7AM-5PM: contact resident on [facility] Med D (find by hovering over attending's name on left side of patient's chart) 5PM-7AM: contact AI3 res Department of Internal Medicine Division of Endocrinology, Diabetes, & Metabolism Endocrinology Note Patient Name: Farrah Gonzales : 1980 AGE: 44 y.o. Room/Bed: [facility]/[address] Admission Date: 08/23/2024 Visit Date: 08/25/2024 Reason for Endocrine Consult: Type 1 diabetes mellitus on insulin pump. Provider/Team Requesting Consult: Brayan Barros PCP: Kristal Sullivan MD Outpt Nursing Professor: Yes . Jace Ko MD at outside [...] insulin pump. 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 SUBJECTIVE/HPI: CHIEF COMPLAINT: No chief complaint [...] for the last 3 years, with a Frugoton G6 CGM. He uses auto mode on [...] found for: CHOLHDLRATIO No results found for: [id number] Lab Results Component Value Date TSH 2.48 08/23/2024 Radiology reportsas per the Radiologist Radiology: CT chest abdomen pelvis with contrast Result Date: 08/23/2024 Patient Name: FARRAH [facility]ONZALES [facility] 1980 [id number] Exam Date/Time: 08/23/2024 14:56 Procedure: CT CHEST [...] 08/23/2024 Patient Name: FARRAH GONZALES [facility] 1980 [id number] Exam Date/Time: 08/23/2024 13:22 Procedure: XR CHEST [...] from the original note were not included. [facility] - Infectious Diseases Advanced Practice Provider Progress [...] be of moderate complexity. Tracy GEORGE PA-C [facility] Infectious Disease Nephrology Progress Note Following for ESRD mgt Pt seen in room had CVC removed 08/24 for line holiday Has current LAVF placed 07/2023 had revision + bruit /thrill Pt asking if its ok to use AVF was suppose to have US and appt with vascular today in [place] Current Inpatient Medications: Reviewed on MAY. 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 I reviewed with PAPER GRADER-SPRIGGER the medical history and the findings on physical examination. I discussed the patient s diagnosis and concur with the treatment plan as documented in his note. Please call [phone] or message me through [employer] with any questions or concerns. 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 from [place] ED for diagnosis of sepsis. In ED [...] On: Kcal/kg Weight Used for Energy Requirements: [place] Weight for Energy Calculation (kg): 78 kg Total Energy Requirements (kcals/day): 4024-5212 kcal/day (28-30 kcal/kg) Weight Used for Protein Requirements: [place] Weight in Kg Used for Protein Requirements: [...] last weight at HD was '85.5 kg') [place] Body Weight (lbs) (Calculated): 172 lbs [place] Body Weight (Kg) (Calculated): 78 kg BMI [...] Melissa Orellana RD Contact: Secure chat or *[phone] Med Team Progress Note Farrah Gonzales : [...] 13.0 ABGs: No results for input(s): PHART, KPA5ILO, PO2ART, EMH5JAY, SO2ART, D1TJQNPF in the last 72 hours. Lactic Acid: [...] on line holiday 7AM-5PM: contact resident on [facility] Med D (find by hovering over attending's [...] MWF HD - continue HD MWF at [facility] tammy - Dr Diaz OP brine plant operator - right TDC CDI Volume. - Bp [...] any questions or concerns Kim Blackwell APRN SPRIGGER A-G TRIAGE SPECIALIST [facility] [place] [phone] Pt seen and examined independently by me. I reviewed with PAPER GRADER-SPRIGGER the medical history and the findings on physical examination. I discussed the patient s diagnosis and concur with the treatment plan as documented in his note. Please call [phone] or message me through [employer] with any questions or concerns. Department of Internal Medicine Division of Endocrinology, Diabetes, & Metabolism Endocrinology Note Patient Name: Farrah Gonzales : 1980 AGE: 44 y.o. [facility] Admission Date: 08/23/2024 Visit Date: 08/24/2024 Reason for Endocrine Consult: Type 1 diabetes mellitus on insulin pump. Provider/Team Requesting Consult: Brayan Barros PCP: Kristal Sullivan MD Outpt Nursing Professor: Yes . Jace Ko MD at outside [...] insulin pump. 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 SUBJECTIVE/HPI: CHIEF COMPLAINT: No chief complaint [...] for the last 3 years, with a [employer] G6 CGM. He uses auto mode on [...] found for: CHOLHDLRATIO No results found for: [id number] Lab Results Component Value Date TSH 2.48 [...] IM for nausea/vomiting. documented in this encounter [facility] 08-27-2024 Plan of care note Formatting [...] decisions related to nutrition Collaborate with clinical tie layer Problem: Safety - Adult Goal: Free from [...] Interventions Goal: Assess Nutritional Intake Outcome: Progressing [facility] 08-27-2024 [facility] Notes Formatting of this note might be [...] decisions related to nutrition Collaborate with clinical tie layer Problem: Safety - Adult Goal: Free from [...] maintained or improved Outcome: Progressing Spoke with [facility] and updated that plan was to discharge Friday with abx after dialysis. They are able to accept. OPAT faxed to facility. IV ancef continued. Plan for jail abx with dialysis. ID following- waiting for [...] pending. IV ancef continued- possible need for machine operator hop picker abx. GI s/o. Hepatobiliary surg consulted. Endo/ [...] for tx/ eval of sepsis- transfer from [place] ER. HD- MWF. IV zosyn/ vanc continued. Respiratory culture positive. BC positive. XR chest/ CT abd pelvis completed. Echo pending. Per nursing pt is vomiting today. GI/ID consulted. Anticipate discharge home. Possible jail abx. Problem: Knowledge Deficit Goal: Patient/family/caregiver demonstrates [...] improved Outcome: Progressing documented in this encounter [facility] 08-27-2024 Plan of care note Formatting [...] 1722 by Mike Lopez RN Outcome: Progressing [facility] 08-27-2024 Plan of care note Formatting [...] monitored and maintained or improved Outcome: Progressing [facility] 08-27-2024 Note [facility] - Infectious Diseases Advanced Practice Provider Progress [...] 05/02 TDC s/p (more content not included)... [facility] 08-27-2024 Note Formatting of this note might be differe nt from the original. Spoke with [facility] Tam[facility] and updated that plan was to discharge Friday with abx after dialysis. They are able to accept. OPAT faxed to facility. [facility] 08-27-2024 Note Formatting of this note might be differe nt from the original. Spoke with [facility] Tam[facility] and updated that plan was to discharge Friday with abx after dialysis. They are able to accept. OPAT faxed to facility. [facility] 08-27-2024 Nurse Note Formatting of this note is different fro m the original. Patient Name: Farrah Gonzales Patient : 1980 Acct: [id number] Date of Admission: 08/23/2024 [facility] Code Status: Full Code Allergies: Allergies[1] [...] 1334. Report Received from Primary RN at 0915. Primary RN (First Initial, Last Name, Title): [...] - Before each treatment: Dialysis Machine No.: [id number] RO Machine Number: [id number] Dialyzer Lot No.: [id number] Tubing Lot Number: [id number] All Connections Secure: Yes Venous Parameters Set: Yes Arterial Parameters Set: Yes NS Bag: Yes Saline Line Double Clamped: Yes Dialyzer: Revaclear 300 Prime Volume (mL): 200 mL RO Machine Number: [id number] RO Machine Log Sheet Completed: Yes Machine Alarm Self Test: Completed, Passed (08/27/24 1300) Air Foam Detector: Tested, Proper Function, pH Reading Extracorporeal Circuit Tested for Integrity: Yes Machine Conductivity: 13..8 Manual Conductivity: 13.8 Manual Ph: 7.14 Bleach Test (Neg): Yes Bath Temperature: 36 C (96.8 F) Conductivity Meter Serial #: [id number] Machine Functioning Alarm Free? Yes Dialysis Bath: K+ (Potassium): 3 Ca+ (Calcium): 2.5 Na+ (Sodium): 137 HCO3 (Bicarb): 32 Bicarbonate Concentrate Lot No.: [id number] - [id number] Acid Concentrate Lot No.: [id number] Chlorine Testing - Before each treatment and [...] acute organ dysfunction (CMS/HCC) (HCC) [3] T [facility] 08-27-2024 Nurse Note Formatting of this note is different fro m the original. Patient Name: Farrah Gonzales Patient : 1980 Acct: [id number] Date of Admission: 08/23/2024 [facility] Code Status: Full Code Allergies: Allergies[1] [...] - Before each treatment: Dialysis Machine No.: [id number] RO Machine Number: [id number] Dialyzer Lot No.: [id number] Tubing Lot Number: [id number] All Connections Secure: Yes Venous Parameters Set: Yes Arterial Parameters Set: Yes NS Bag: Yes Saline Line Double Clamped: Yes Dialyzer: Revaclear 300 Prime Volume (mL): 200 mL RO Machine Number: [id number] RO Machine Log Sheet Completed: Yes Machine Alarm Self Test: Completed, Passed (08/27/24 1300) Air Foam Detector: Tested, Proper Function, pH Reading Extracorporeal Circuit Tested for Integrity: Yes Machine Conductivity: 13..8 Manual Conductivity: 13.8 Manual Ph: 7.14 Bleach Test (Neg): Yes Bath Temperature: 36 C (96.8 F) Conductivity Meter Serial #: [id number] Machine Functioning Alarm Free? Yes Dialysis Bath: K+ (Potassium): 3 Ca+ (Calcium): 2.5 Na+ (Sodium): 137 HCO3 (Bicarb): 32 Bicarbonate Concentrate Lot No.: [id number] - [id number] Acid Concentrate Lot No.: [id number] Chlorine Testing - Before each treatment and [...] Name: Farrah Gonzales Patient : 1980 Acct: [id number] Date of Admission: 08/23/2024 [facility] Code Status: Full Code Allergies: Allergies[1] [...] 4 Other (Comment) None (Room air) Clear [place] Warm;Dry Soft;Flat Active None None None None [...] - Before each treatment: Dialysis Machine No.: [id number] RO Machine Number: [id number] Dialyzer Lot No.: [id number] Tubing Lot Number: [id number] All Connections Secure: Yes Venous Parameters Set: Yes Arterial Parameters Set: Yes NS Bag: Yes Saline Line Double Clamped: Yes Dialyzer: Nipro Prime Volume (mL): 200 mL RO Machine Number: [id number] RO Machine Log Sheet Completed: Yes Machine Alarm Self Test: Completed, Passed (1655) (08/25/241655) Air Foam Detector: Tested, Proper Function, pH Reading Extracorporeal Circuit Tested for Integrity: Yes Machine Conductivity: 14.0 Manual Conductivity: 13.8 Manual Ph: 7.4 Bleach Test (Neg): Yes Bath Temperature: 36 C (96.8 F) Conductivity Meter Serial #: [id number] Machine Functioning Alarm Free? Yes Dialysis Bath: K+ (Potassium): 3 Ca+ (Calcium): 2.5 Na+ (Sodium): 137 HCO3 (Bicarb): 32 Bicarbonate Concentrate Lot No.: [id number] - [id number] Acid Concentrate Lot No.: [id number] Chlorine Testing - Before each treatment and [...] Name: Farrah Gonzales Patient : 1980 Acct: [id number] Date of Admission: 08/23/2024 [facility] A Code Status: Full Code Allergies: Allergies[1] [...] 4 Other (Comment) -- None (Room air) [place] Warm;Dry -- -- None None None None Incapacitated RN and Pt education done Medication (See MAR) 08/23/242357 Alert (0) 4 Other (Comment) Other (Comment) None (Room air) [place] Warm;Dry Soft Active None None None None [...] - Before each treatment: Dialysis Machine No.: [id number] RO Machine Number: [id number] Dialyzer Lot No.: [id number] Tubing Lot Number: [id number] All Connections Secure: Yes Venous Parameters Set: Yes Arterial Parameters Set: Yes NS Bag: Yes Saline Line Double Clamped: Yes Dialyzer: Nipro Prime Volume (mL): 200 mL RO Machine Number: [id number] RO Machine Log Sheet Completed: Yes Machine Alarm Self Test: Completed, Passed (At 2015) (08/23/242015) Air Foam Detector: Tested, Proper Function, pH Reading Extracorporeal Circuit Tested for Integrity: Yes Machine Conductivity: 13.8 Manual Conductivity: 13.6 Manual Ph: 7.2 Bleach Test (Neg): Yes Bath Temperature: 36 C (96.8 F) Conductivity Meter Serial #: [id number] Machine Functioning Alarm Free? Yes Dialysis Bath: K+ (Potassium): 3 Ca+ (Calcium): 2.5 Na+ (Sodium): 137 HCO3 (Bicarb): 32 Bicarbonate Concentrate Lot No.: [id number] - [id number] Acid Concentrate Lot No.: [id number] Chlorine Testing - Before each treatment and [...] and report given to Primary RN at 5204. Primary RN (First Initial, Last Name, Title): [...] omni pod 176 documented in this encounter [facility] 08-27-2024 Note Formatting of this note might be differe nt from the original. IV ancef continued. 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 ID following- waiting for culture results. OPAT to be written. Anticipate discharge home with no needs. T [facility] 08-27-2024 Note Formatting of this note might be differe nt from the original. IV ancef continued. Plan for jail abx with dialysis. ID following- waiting for culture results. OPAT to be written. Anticipate discharge home with no needs. T [facility] 08-27-2024 Nurse Note Formatting of this note might be differe nt from the original. 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 I reviewed with REEMA-SPRIGGER the medical history and the findings on physical examination. I discussed the patient?s diagnosis and concur with the treatment plan as documented in his note. Please call [phone] or message me through [employer] with any questions or concerns. [facility] 08-27-2024 Plan of care note Formatting of this note might be differe nt from the original. Problem: Knowledge Deficit Goal: Patient/family/caregiver demonstrates understanding of disease process, treatment plan, medications, and discharge instructions Outcome: Progressing Problem: Potential for Compromised Skin Integrity Goal: Skin Integrity is Maintained or Improved Outcome: Progressing [facility] 08-26-2024 Note [facility] Medical [facility] - Infectious Diseases Advanced Practice Provider [...] increased wall thickne (more content not included)... [facility] 08-26-2024 Note Formatting of this note might be differe nt from the original. IV ancef continued. Repeat cultures pending. 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 Nephrology following. Anticipate discharge home with no needs. [facility] 08-26-2024 Note Formatting of this note might be differe nt from the original. IV ancef continued. Repeat cultures pending. 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 Nephrology following. Anticipate discharge home with no needs. 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 I reviewed with , REEMA-DEJAH the medical history and the findings on physical examination. I discussed the patient?s diagnosis and concur with the treatment plan as documented in his note. Please call [phone] or message me through [employer] with any questions or concerns. [facility] 08-25-2024 Nurse Note Formatting of this note is different fro m the original. Patient Name: Farrah Gonzales Patient : 1980 Acct: [id number] Date of Admission: 08/23/2024 [facility] Code Status: Full Code Allergies: Allergies[1] [...] 4 Other (Comment) None (Room air) Clear [place] Warm;Dry Soft;Flat Active None None None None [...] - Before each treatment: Dialysis Machine No.: [id number] RO Machine Number: [id number] Dialyzer Lot No.: [id number] Tubing Lot Number: [id number] All Connections Secure: Yes Venous Parameters Set: Yes Arterial Parameters Set: Yes NS Bag: Yes Saline Line Double Clamped: Yes Dialyzer: Nipro Prime Volume (mL): 200 mL RO Machine Number: [id number] RO Machine Log Sheet Completed: Yes Machine Alarm Self Test: Completed, Passed (1655) (08/25/241655) Air Foam Detector: Tested, Proper Function, pH Reading Extracorporeal Circuit Tested for Integrity: Yes Machine Conductivity: 14.0 Manual Conductivity: 13.8 Manual Ph: 7.4 Bleach Test (Neg): Yes Bath Temperature: 36 C (96.8 F) Conductivity Meter Serial #: [id number] Machine Functioning Alarm Free? Yes Dialysis Bath: K+ (Potassium): 3 Ca+ (Calcium): 2.5 Na+ (Sodium): 137 HCO3 (Bicarb): 32 Bicarbonate Concentrate Lot No.: [id number] Acid Concentrate Lot No.: [id number] Chlorine Testing - Before each treatment and [...] List Diagnosis History of myocardial infarction [3] [facility] 08-25-2024 Consult note Associated Order(s): IP CONSULT TO HEPAT OBILIARY SURGERY / SURGICAL ONCOLOGY Department of Surgery Surgical Service - 3 Resident Consult Note 08/24/2024 CHIEF COMPLAINT: No chief complaint on file. Reason for Consult: liver mass HISTORY OF PRESENT ILLNESS: Farrah Gonzales is a 44 y.o. male with a history of T1DM, ESRD on HD via TDC, HTN, LA s/p stent March 2024 on ASA who presented 08/24/24 from [place] with concern for sepsis. Fevers, hypotension, tachycardia. MSSA bacteremia presumed due to TDC. He states that he had an MRI at [place] which showed a hemangioma. He denies abdominal [...] right liver mass - requested MRI from [place] which reportedly shows liver hemangioma. Asymptomatic. No surgical intervention - hepatitis panel negative in 2023 - other management per primary - discussed with Dr. Amie Russo D.O. General Surgery Resident Pager: [phone] [1] Past Medical History: Diagnosis Date End [...] Resource Strain: Low Risk (07/02/2022) Received from [facility] Overall Financial Resource Strain (CARDIA) Difficulty of Paying Living Expenses: Not hard at all Food Insecurity: No Food Insecurity (07/02/2022) Received from [facility] Hunger Vital Sign Worried About Running Out of Food in the Last Year: Never true Ran Out of Food in the Last Year: Never true Transportation Needs: No Transportation Needs (07/02/2022) Received from [facility] PRAPARE - Transportation Lack of Transportation (Medical): No Lack of Transportation (Non-Medical): No Physical Activity: Inactive (07/02/2022) Received from [facility] Exercise Vital Sign Days of Exercise per Week: 0 days Minutes of Exercise per Session: 0 min Stress: No Stress Concern Present (07/02/2022) Received from [facility] [place] of Occupational Health - Occupational Stress Questionnaire Feeling of Stress : Not at all Social Connections: Socially Integrated (07/02/2022) Received from [facility] Social Connection and Isolation Panel [NHANES] Frequency of Communication with Friends and Family: More than three times a week Frequency of Social Gatherings with Friends and Family: More than three times a week Attends L[employer] Day Services: More than 4 times per year Active Member of Clubs or Organizations: Yes Attends Club or Organization Meetings: More than 4 times per year Marital Status: Living with partner Housing Stability: Low Risk (07/02/2022) Received from [facility] Housing Stability Vital Sign Unable to [...] T1DM, ESRD on HD via TDC, HTN, LA s/p stent March 2024 on ASA who presented 08/24/24 from [place] with concern for sepsis. Fevers, hypotension, tachycardia. MSSA bacteremia presumed due to TDC. He states that he had an MRI at [place] which showed a hemangioma. He denies abdominal pain. CT CAP to rule out other sources incidentally found 7.7 cm heterogenous right liver lesion. AF, HDS. Tachycardia improved. WBC 10, Hgb 9.6, platelets 153, Cr 5.47, bilirubin normal, ALT/AST 81/78 Medical History[1] Surgical History[2] Medications Prior to Admission: @[email or web address]@ Allergies: Patient has no known allergies. Social [...] right liver mass - requested MRI from [place] which reportedly shows liver hemangioma. Asymptomatic. No surgical intervention - hepatitis panel negative in 2023 - other management per primary - discussed with Dr. Amie Russo D.O. General Surgery Resident Pager: [phone] [1] Past Medical History: Diagnosis Date End [...] Resource Strain: Low Risk (07/02/2022) Received from [facility] Overall Financial Resource Strain (CARDIA) Difficulty of Paying Living Expenses: Not hard at all Food Insecurity: No Food Insecurity (07/02/2022) Received from [facility] Hunger Vital Sign Worried About Running Out of Food in the Last Year: Never true Ran Out of Food in the Last Year: Never true Transportation Needs: No Transportation Needs (07/02/2022) Received from [facility] PRAPARE - Transportation Lack of Transportation (Medical): No Lack of Transportation (Non-Medical): No Physical Activity: Inactive (07/02/2022) Received from [facility] Exercise Vital Sign Days of Exercise per Week: 0 days Minutes of Exercise per Session: 0 min Stress: No Stress Concern Present (07/02/2022) Received from [facility] [place] of Occupational Health - Occupational Stress Questionnaire Feeling of Stress : Not at all Social Connections: Socially Integrated (07/02/2022) Received from [facility] Social Connection and Isolation Panel [NHANES] Frequency of Communication with Friends and Family: More than three times a week Frequency of Social Gatherings with Friends and Family: More than three times a week Attends [employer] Day Services: More than 4 times per year Active Member of Clubs or Organizations: Yes Attends Club or Organization Meetings: More than 4 times per year Marital Status: Living with partner Housing Stability: Low Risk (07/02/2022) Received from [facility] Housing Stability Vital Sign Unable to [...] HTN who presents as a transfer from [facility] with sepsis (T 103, BP 93/78. HR [...] Resource Strain: Low Risk (07/02/2022) Received from [facility] Overall Financial Resource Strain (CARDIA) Difficulty of Paying Living Expenses: Not hard at all Food Insecurity: No Food Insecurity (07/02/2022) Received from [facility] Hunger Vital Sign Worried About Running Out of Food in the Last Year: Never true Ran Out of Food in the Last Year: Never true Transportation Needs: No Transportation Needs (07/02/2022) Received from [facility] PRAPARE - Transportation Lack of Transportation (Medical): No Lack of Transportation (Non-Medical): No Physical Activity: Inactive (07/02/2022) Received from [facility] Exercise Vital Sign Days of Exercise per Week: 0 days Minutes of Exercise per Session: 0 min Stress: No Stress Concern Present (07/02/2022) Received from [facility] [place] of Occupational Health - Occupational Stress Questionnaire Feeling of Stress : Not at all Social Connections: Socially Integrated (07/02/2022) Received from [facility] Social Connection and Isolation Panel [NHANES] Frequency of Communication with Friends and Family: More than three times a week Frequency of Social Gatherings with Friends and Family: More than three times a week Attends L[employer] Day Services: More than 4 times per year Active Member of Clubs or Organizations: Yes Attends Club or Organization Meetings: More than 4 times per year Marital Status: Living with partner Intimate Partner Violence: Not on file Housing Stability: Low Risk (07/02/2022) Received from [facility] Housing Stability Vital Sign Unable to [...] few small scattered colonic diverticuli. Endoscopic Review [facility] Gastrointestinal Endoscopy Patient Name: Laurie Gonzales Procedure Date: 10/09/2011 7:00 AM Date of : 1980 Admit Type: Ambulatory Age: 31 Gender: Male Note Status: Finalized Procedure: Upper GI endoscopy Indications: Heartburn. Nausea with vomiting. Recently admitted to hospital in [facility] in June with severe DKA. Had N/V [...] on HD M,W,F Plan: Patient transferred to [facility] from [place] ED for sepsis and need for HD. [...] from the original note were not included. [facility] - Infectious Diseases Advanced Practice Provider Consult Note Reason for Consult: MSSA bacteremia History of Present Illness: 44 yo male with PMHx significant for T1DM, ESRD via TDC, and HTN who presents 08/23 from [place] ED with fever, hypotension, tachycardia concerning for [...] 10.7, lactic acid 1.5, procal 5.94, BNP [address]65. CXR negative. CT chest/abd/pelvis performed and without [...] Resource Strain: Low Risk (07/02/2022) Received from [facility] Overall Financial Resource Strain (CARDIA) Difficulty of Paying Living Expenses: Not hard at all Food Insecurity: No Food Insecurity (07/02/2022) Received from [facility] Hunger Vital Sign Worried About Running Out of Food in the Last Year: Never true Ran Out of Food in the Last Year: Never true Transportation Needs: No Transportation Needs (07/02/2022) Received from [facility] PRAPARE - Transportation Lack of Transportation (Medical): No Lack of Transportation (Non-Medical): No Physical Activity: Inactive (07/02/2022) Received from [facility] Exercise Vital Sign Days of Exercise per Week: 0 days Minutes of Exercise per Session: 0 min Stress: No Stress Concern Present (07/02/2022) Received from [facility] [place] of Occupational Health - Occupational Stress Questionnaire Feeling of Stress : Not at all Social Connections: Socially Integrated (07/02/2022) Received from [facility] Social Connection and Isolation Panel [NHANES] Frequency of Communication with Friends and Family: More than three times a week Frequency of Social Gatherings with Friends and Family: More than three times a week Attends Latter Day Services: More than 4 times per year Active Member of Clubs or Organizations: Yes Attends Club or Organization Meetings: More than 4 times per year Marital Status: Living with partner Intimate Partner Violence: Not on file Housing Stability: Low Risk (07/02/2022) Received from [facility] Housing Stability Vital Sign Unable to [...] EDT Associated Order(s): IP CONSULT TO NEPHROLOGY [facility] [place] [address] [place], [place] [id number] Consult Note Patient's Name: Farrah Gonzales 2:37 [...] do not hesitate to contact me at [phone] with any concerns. Osmel Andrade MD 2:37 PM 08/23/2024 --- --- --- Chief Complaint: fever History Obtained From: patient and chart review History of Present Ilness: Farrah Gonzales is a 44 y.o. male with underlying history below who is currently being admitted to the hospital of workup for sepsis. Nephrology is consulted for management of end-stage renal disease Patient dialyzes at [facility] in [place] Friday. His last dialysis treatment was on [...] [] CrCl ml/min (Cockcroft-Gault, if ANN, no SUPPLIER DEVELOPMENT MANAGER) Consulted By: Brayan Barros Vancomycin Level: []Trough [...] 1:53 PM Marlene Waller PharmD (available on [employer]) Associated Order(s): IP CONSULT TO ENDOCRINOLOGY Department of Internal Medicine Division of Endocrinology, Diabetes, & Metabolism Endocrinology Note Patient Name: Farrah Gonzales : 1980 AGE: 44 y.o. [facility] Admission Date: 08/23/2024 Visit Date: 08/23/2024 Reason for Endocrine Consult: Type 1 diabetes mellitus on insulin pump. Provider/Team Requesting Consult: Brayan Barros PCP: Kristal Sullivan MD Outpt Nursing Professor: Yes . Jace Ko MD at outside [...] insulin pump. 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 SUBJECTIVE/HPI: CHIEF COMPLAINT: No chief complaint on file. Farrah is a 44-year-old white male who was admitted with sepsis, to determine etiology. He has a history of type 1 diabetes mellitus since age 18. He has been on an OmniPod for the last 3 years, with a DexVIS Research G6 CGM. He uses auto mode on [...] found for: CHOLHDLRATIO No results found for: [id number] No results found for: TSH, H1GXFIS, N3QTEIJ, THYROIDAB Radiology reportsas per the Radiologist Radiology: [...] Drug use: Never documented in this encounter [facility] 08-25-2024 Nurse Note Formatting of this note might be differe nt from the original. Instructed patient to turn off insulin pump per endocrine order last pm. Patient confirmed insulin pump is off. [facility] 08-25-2024 Note [facility] - Infectious Diseases Advanced [...] plan discussed with (more content not included)... [facility] 08-25-2024 Note Nephrology Progress Note Following for ESRD mgt Pt seen in room had CVC removed 08/24 for line holiday Has current LAVF placed 07/2023 had revision + bruit /thrill Pt asking if its ok to use AVF was suppose to have US and appt with vascular today in [place] Current Inpatient Medications: Reviewed on MAY. 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 I reviewed with PAPER GRADER-DEJAH the medical history and the findings on physical examination. I discussed the patient?s diagnosis and concur with the treatment plan as documented in his note. Please call [phone] or message me through [employer] with any questions or concerns. [facility] 08-25-2024 Note Formatting of this note might be differe nt from the original. Dialysis cath removed yesterday for line holiday. If HD needed a temp line can be placed per ID. Repeat culture ordered- 1 set pending. IV ancef continued- possible need for machine operator hop picker abx. GI s/o. Hepatobiliary surg consulted. Endo/ ID following. Anticipate discharge home with no needs. [facility] 08-25-2024 Note Formatting of this note might be differe nt from the original. Dialysis cath removed yesterday for line holiday. If HD needed a temp line can be placed per ID. Repeat culture ordered- 1 set pending. IV ancef continued- possible need for jail abx. GI s/o. Hepatobiliary surg consulted. Endo/ ID following. Anticipate discharge home with no needs. T [facility] 08-24-2024 Nurse Note Formatting of this note might be differe nt from the original. CGM 344 T [facility] 08-24-2024 Nurse Note Formatting of this [...] mask for the duration of the procedure. [facility] 08-24-2024 Nurse Note Formatting of this note might be differe nt from the original. CGM reading is 199 T [facility] 08-24-2024 Note Formatting of this note might be differe nt from the original. Pt adm for tx/ eval of sepsis- transfer from [facility]. HD- [facility]. IV zosyn/ vanc continued. Respiratory culture positive. BC positive. XR chest/ CT abd pelvis completed. Echo pending. Per nursing pt is vomiting today. GI/ID consulted. Anticipate discharge home. Possible jail abx. [facility] 08-24-2024 Note Formatting of this note might be differe nt from the original. Pt adm for tx/ eval of sepsis- transfer from [facility]. HD- [facility]. IV zosyn/ vanc continued. Respiratory culture positive. BC positive. XR chest/ CT abd pelvis completed. Echo pending. Per nursing pt is vomiting today. GI/ID consulted. Anticipate discharge home. 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 [facility] 08-24-2024 Consult note Associated Order(s): IP [...] HTN who presents as a transfer from [place] ED with sepsis (T 103, BP 93/78. [...] Resource Strain: Low Risk (07/02/2022) Received from [facility] Overall Financial Resource Strain (CARDIA) Difficulty of Paying Living Expenses: Not hard at all Food Insecurity: No Food Insecurity (07/02/2022) Received from [facility] Hunger Vital Sign Worried About Running Out of Food in the Last Year: Never true Ran Out of Food in the Last Year: Never true Transportation Needs: No Transportation Needs (07/02/2022) Received from [facility] PRAPARE - Transportation Lack of Transportation (Medical): No Lack of Transportation (Non-Medical): No Physical Activity: Inactive (07/02/2022) Received from [facility] Exercise Vital Sign Days of Exercise per Week: 0 days Minutes of Exercise per Session: 0 min Stress: No Stress Concern Present (07/02/2022) Received from [facility] [place] of Occupational Health - Occupational Stress Questionnaire Feeling of Stress : Not at all Social Connections: Socially Integrated (07/02/2022) Received from [facility] Social Connection and Isolation Panel [NHANES] Frequency of Communication with Friends and Family: More than three times a week Frequency of Social Gatherings with Friends and Family: More than three times a week Attends Latter Day Services: More than 4 times per year Active Member of Clubs or Organizations: Yes Attends Club or Organization Meetings: More than 4 times per year Marital Status: Living with partner Intimate Partner Violence: Not on file Housing Stability: Low Risk (07/02/2022) Received from [facility] Housing Stability Vital Sign Unable to [...] few small scattered colonic diverticuli. Endoscopic Review [facility] Gastrointestinal Endoscopy Patient Name: Laurie Gonzales Procedure Date: 10/09/2011 7:00 AM Date of : 1980 Admit Type: Ambulatory Age: 31 Gender: Male Note Status: Finalized Procedure: Upper GI endoscopy Indications: Heartburn. Nausea with vomiting. Recently admitted to hospital in [facility] in June with severe DKA. Had N/V [...] on HD M,W,F Plan: Patient transferred to [facility] from [place] ED for sepsis and need for HD. 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 - Bp [...] any questions or concerns Kim Blackwell APRN SPRIGGER A-G TRIAGE SPECIALIST [facility] [place] [phone] Pt seen and examined independently by me. I reviewed with PAPER GRADER-SPRIGGER the medical history and the findings on physical examination. I discussed the patient?s diagnosis and concur with the treatment plan as documented in his note. Please call [phone] or message me through [employer] with any questions or concerns. [facility] 08-24-2024 Consult note Associated Order(s): IP CONSULT TO INFEC TIOUS DISEASES Images from the original note were not included. [facility] Medical [facility] - Infectious Diseases Advanced Practice Provider Consult Note Reason for Consult: MSSA bacteremia History of Present Illness: 44 yo male with PMHx significant for T1DM, ESRD via TDC, and HTN who presents 08/23 from [place] ED with fever, hypotension, tachycardia concerning for [...] 10.7, lactic acid 1.5, procal 5.94, BNP [address]. CXR negative. CT chest/abd/pelvis performed and without [...] Resource Strain: Low Risk (07/02/2022) Received from [facility] Overall Financial Resource Strain (CARDIA) Difficulty of Paying Living Expenses: Not hard at all Food Insecurity: No Food Insecurity (07/02/2022) Received from [facility] Hunger Vital Sign Worried About Running Out of Food in the Last Year: Never true Ran Out of Food in the Last Year: Never true Transportation Needs: No Transportation Needs (07/02/2022) Received from [facility] PRAPARE - Transportation Lack of Transportation (Medical): No Lack of Transportation (Non-Medical): No Physical Activity: Inactive (07/02/2022) Received from [facility] Exercise Vital Sign Days of Exercise per Week: 0 days Minutes of Exercise per Session: 0 min Stress: No Stress Concern Present (07/02/2022) Received from [facility] [place] of Occupational Health - Occupational Stress Questionnaire Feeling of Stress : Not at all Social Connections: Socially Integrated (07/02/2022) Received from [facility] Social Connection and Isolation Panel [NHANES] Frequency of Communication with Friends and Family: More than three times a week Frequency of Social Gatherings with Friends and Family: More than three times a week Attends Latter Day Services: More than 4 times per year Active Member of Clubs or Organizations: Yes Attends Club or Organization Meetings: More than 4 times per year Marital Status: Living with partner Intimate Partner Violence: Not on file Housing Stability: Low Risk (07/02/2022) Received from [facility] Housing Stability Vital Sign Unable to [...] for accounting for open encounter. Tracy Childs [facility] Infectious Disease [1] Past Medical History: Diagnosis [...] Sue MD at 08/24/2024 3:43 PM EDT [facility] 08-24-2024 Nurse Note Formatting of this note might be differe nt from the original. Patients CGM reading 207 T [facility] 08-23-2024 Nurse Note Formatting of this note might be differe nt from the original. Pt.'s insulin pump reading glucose 180 [facility] 08-23-2024 Nurse Note Formatting of this note is different fro m the original. Patient Name: Farrah Gonzales Patient : 1980 Acct: [id number] Date of Admission: 08/23/2024 [facility] Code Status: Full Code Allergies: Allergies[1] [...] 4 Other (Comment) -- None (Room air) [place] Warm;Dry -- -- None None None None Incapacitated RN and Pt education done Medication (See MAR) 08/23/242357 Alert (0) 4 Other (Comment) Other (Comment) None (Room air) [place] Warm;Dry Soft Active None None None None [...] - Before each treatment: Dialysis Machine No.: [id number] Machine Number: [id number] Dialyzer Lot No.: [id number] Tubing Lot Number: [id number] All Connections Secure: Yes Venous Parameters Set: Yes Arterial Parameters Set: Yes NS Bag: Yes Saline Line Double Clamped: Yes Dialyzer: Nipro Prime Volume (mL): 200 mL RO Machine Number: [id number] RO Machine Log Sheet Completed: Yes Machine Alarm Self Test: Completed, Passed (At 2015) (08/23/242015) Air Foam Detector: Tested, Proper Function, pH Reading Extracorporeal Circuit Tested for Integrity: Yes Machine Conductivity: 13.8 Manual Conductivity: 13.6 Manual Ph: 7.2 Bleach Test (Neg): Yes Bath Temperature: 36 C (96.8 F) Conductivity Meter Serial #: [id number] Machine Functioning Alarm Free? Yes Dialysis Bath: K+ (Potassium): 3 Ca+ (Calcium): 2.5 Na+ (Sodium): 137 HCO3 (Bicarb): 32 Bicarbonate Concentrate Lot No.: [id number] Acid Concentrate Lot No.: [id number] Chlorine Testing - Before each treatment and [...] infarction [3] Insulin Pump - (Patient Supplied), [facility] 08-23-2024 Nurse Note Formatting of this note might be differe nt from the original. Fistula to Lfa/wrist is warm to touch, secure messaging to primary [facility] 08-23-2024 Nurse Note Formatting of this note might be differe nt from the original. Blood sugar per patients omni pod 176 T [facility] 08-23-2024 Plan of care note Formatting [...] 1046 by Mike Lopez RN Outcome: Progressing [facility] 235[address] [employer] 08-23-2024 Consult note Associated Order(s): IP CONSULT TO NEPHR ESTRELLA [facility] [place] [address] [place] [address] Consult Note Patient's Name: Farrah [...] do not hesitate to contact me at [phone] with any concerns. Osmel Andrade MD 2:37 PM 08/23/2024 --- --- --- Chief Complaint: fever History Obtained From: patient and chart review History of Present Ilness: Farrah Gonzales is a 44 y.o. male with underlying history below who is currently being admitted to the hospital of workup for sepsis. Nephrology is consulted for management of end-stage renal disease Patient dialyzes at [facility] in [place] Friday. His last dialysis treatment was on [...] (placeholder) Other RX Placeholder Brayan Barros DO [employer] Phone: 08-23-2024 Consult note Formatting of this [...] [] CrCl ml/min (Cockcroft-Gault, if ANN, no SUPPLIER DEVELOPMENT MANAGER) Consulted By: Brayan Barros Vancomycin Level: []Trough [...] 1:53 PM Marlene Waller PharmD (available on [employer]) [facility] 08-23-2024 Consult note Associated Order(s): IP CONSULT TO ENDOC RINOLOGY Department of Internal Medicine Division of Endocrinology, Diabetes, & Metabolism Endocrinology Note Patient Name: Farrah Gonzales : 1980 AGE: 44 y.o. [facility] Admission Date: 08/23/2024 Visit Date: 08/23/2024 Reason for Endocrine Consult: Type 1 diabetes mellitus on insulin pump. Provider/Team Requesting Consult: Brayan Barros PCP: Kristal Sullivan MD Outpt Nursing Professor: Yes . Jace Ko MD at outside [...] insulin pump. 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 SUBJECTIVE/HPI: CHIEF COMPLAINT: No chief complaint on file. Farrah is a 44-year-old white male who was admitted with sepsis, to determine etiology. He has a history of type 1 diabetes mellitus since age 18. He has been on an OmniPod for the last 3 years, with a Dex[employer] Research G6 CGM. He uses auto mode on [...] found for: CHOLHDLRATIO No results found for: [id number] No results found for: TSH, W2XZFQO, O0EDGEK, THYROIDAB Radiology reportsas per the Radiologist Radiology: [...] Topics Alcohol use: Never Drug use: Never [facility] 08-23-2024 History and physical note Formatting of this note is different fro m the original. Internal Medicine: Med Team Initial History and Physical Farrah Gonzales : 1980(44 y.o.) Date: August 23, 2024 TEAM: D Attending: Dr. Trujillo Subjective: Chief Complaint: Fever/Body Aches HPI Farrah Gonzales is a 44 y.o. male with PMH of T1DM, ESRD, HTN that presented to [facility] on 08/23/2024 from [place] [facility] for diagnosis of Sepsis. In the [...] hours. ABGs: No results for input(s): PHART, LOO8KYM, PO2ART, QOZ0CUL, SO2ART, A5BRLGAV in the last 72 hours. Lactic Acid: [...] tunneled HD line, HTN, sp AVF creation, LA sp PCI to LAD Mar 2024? (On ASA alone?) who was transferred from [place] ED with sepsis. Overnight found with MSSA [...] monitoring serum creatinine 7AM-5PM: contact resident on [facility] (find by hovering over attending's name on left side of patient's chart) 5PM-7AM: contact [address] 08-23-2024 Note Attestation with edits by [...] tunneled HD line, HTN, sp AVF creation, LA sp PCI to LAD Mar 2024? (On ASA alone?) who was transferred from [place] ED with sepsis. Overnight found with MSSA [...] monitoring serum creatinine 7AM-5PM: contact resident on [facility] Abdias Ricketts (find by hovering over attending's name on left side of patient's chart) 5PM-7AM: contact AI3 res Internal Medicine: Med Team Initial History and Physical Farrah Gonzales : 1980(44 y.o.) Date: August 23, 2024 TEAM: Jamarcus Attending: Dr. Trujillo Subjective: Chief Complaint: Fever/Body Aches HPI Farrah Gonzales is a 44 y.o. male with PMH of T1DM, ESRD, HTN that presented to [facility] on 08/23/2024 from [place] [facility] for diagnosis of Sepsis. In the [...] ALBUMIN, BILITOT, BILIRUBINU, (more content not included)... [facility] 08-23-2024 History and physical note Formatting of this note is different fro m the original. Internal Medicine: Med Team Initial History and Physical Farrah Gonzales : 1980(44 y.o.) Date: August 23, 2024 TEAM: Jamarcus Attending: Dr. Trujillo Subjective: Chief Complaint: Fever/Body Aches HPI Farrah Gonzales is a 44 y.o. male with PMH of T1DM, ESRD, HTN that presented to [facility] on 08/23/2024 from [place] [facility] for diagnosis of Sepsis. In the [...] hours. ABGs: No results for input(s): PHART, RAX6IIQ, PO2ART, DWU9UCY, SO2ART, Z5XFSINY in the last 72 hours. Lactic Acid: [...] tunneled HD line, HTN, sp AVF creation, LA sp PCI to LAD Mar 2024? (On ASA alone?) who was transferred from [place] ED with sepsis. Overnight found with MSSA [...] monitoring serum creatinine 7AM-5PM: contact resident on [facility] (find by hovering over attending's name on left side of patient's chart) 5PM-7AM: contact AI3 res documented in this encounter [facility] 08-23-2024 Plan of care note Formatting [...] monitored and maintained or improved Outcome: Progressing [facility] 08-23-2024 Discharge summary [facility] 08-23-2024 Radiology Diagnostic study note [facility] Imaging Services [address] [place], [place] [address] Chest 1 View (Portable) MR#: [id number] Acct: [id number] Name: LAURIE GONZALES Rep #: [id number] : 1980 M 44 From: Herminio Allison MD PCP: Dr. Kristal Sullivan MD Status: REG E R Study:Chest 1 View (Portable) Date of Exam: 08/23/24 Exam# [id number] Ordering Dr: Jamarcus Elizalde DO PROCEDURE: CHEST [...] No evidence of acute disease. Reading Location: [facility] CC: Dr. Kristal Sullivan MD; Dr. Laurie Elizalde DO ~ Surgical Supply Assistant: Signed [facility] 08-17-2024 Progress note [facility] 08-17-2024 Progress note Note Date/Time August 17, 2024 3:22pm [facility] [address] [place] [address] OFFICE VISIT Date of Service: 08/17/24 MR#: [id number] Acct: [id number] Name: LAURIE GONZALES Rep #: [id number] : 1980 Provider: RAVINDER Payne Age/Sex: 44/M Location: [facility] Status: Signed Intake Vital Signs 08/11/24 14:02 08/17/24 14:47 Height 5 ft 11 in 5 ft 11 in Weight: 191 lb 2 oz BMI 26.6 BP 123/88 H Respiration 18 Pulse 98 Pulse Oximetry (%) 98 Oxygen Delivery Method room air Intake Visit Reasons: SWALLOWED FOOD GETS STUCK Chief Complaint: pain with swallowing Phlebotomy Technician Required: No Accompanied by: Self Is patient in pain?: No Allergies No Known Allergies Allergy (Verified 08/17/24 14:42) Medications ?Medication ?Instructions ?Recorded ?Confirmed ?Type blood sugar diagnostic (FreeStyle #100 ea 10/08/2111/22 Rx Lite Strips) lancing device with lancets kit #100 ea 11/26/2108/05 Rx ([employer] Delica Plus Lancing Device kit) pen needle, [...] Rx 5/32 (BD Ultra-Fine Carol Pen Needle) blood-glucose,postal sorting officer,cont #1 ea 04/01/24 08/11/24 Rx (Dexcom G6 Associate Of Science In Nursing) insulin pump cart,auto,BT,G6/7 #30 ea 04/01/24 5 [...] radiates from the chest to the back. [facility] Medical History Elevated troponin Insulin dependent diabetes [...] oriented x3 Other: Right chest HD cath [facility] Head: normocephalic Ears: hearing grossly normal bilaterally [...] approval to hold prior to EGD. Note: [employer] speech recognition outreach and education social worker software was used to create portions of this document. Sound-alike and misspelled words, as well as other outreach and education social worker errors may be contained in the documentation. Patient Instructions: Esophagram EGD Coding Level of Care Code Off vis,new,level 4 Diagnoses Dysphagia R13.10 Odynophagia R13.10 Clinical Quality Measures Smoking Screening Smoking Status: Never smoker 08/17/24 1522 <Electronically signed by Kalina CASTELLON> Date _ Kalina CASTELLON Cosigner Signature: Date (if applicable) CC: ~ [facility] Work Phone: 1(887) 240-859605-14-2025 Discharge summary Author Louis Koehler [facility] Note Date/Time August 11, 2024 2:35p [facility] Medical Records Department [address] [place] [address] Instructions for Home/Discharge Instructions 08/11/24 1429 MR#: [id number] Acct: [id number] Name: LAURIE GONZALES Rep #:[id number] : 1980 44 From: Louis Ricketts PCP: [...] PO Q12H (DME) lancing device with lancets [[employer] DelLaserLeap Plus Lanc Dev] Kit See Rx Instructions [...] 1RF Rx Instructions: tid (DME) Dexcom G6 Associate Of Science In Nursing Misc See Rx Instructions .Route Qty: 1 [...] can be placed): Home, Self Care 08/11/24 2265<Electronically signed by Louis Koehler MD>Louis Koehler MD CC: Dr. Kristal Sullivan MD; Dr. Daisy Diaz MD; Dr. Eugenia London, DO ~ Signed [facility] Work Phone: 1(726) 576-934005-14-2025 Consult note [facility] Medical Records Department [address] [place], [place] [address] [address] Counseling Note - Pharmacy 08/11/24 1516 MR#: [id number] Acct: [id number] Name: LAURIE GONZALES Rep #:[id number] : 1980 44 From: Ira Singh PCP: Dr. Kristal Sullivan MD Status:ADM I NO Y Location: [place] [address] [facility] has performed discharge medication reconciliation for this patient. The patient's discharge medication list was reviewed for discrepancies and discrepancies were resolved. Medications at Discharge Home Medications blood sugar diagnostic (FreeStyle Lite Strips) #100 ea 10/08/21 lancing device with lancets kit ([employer]uch Delica Plus Lancing Device kit) #100 ea [...] #50 ea 03/30/24 blood-glucose meter,continuous (Dexcom G6 Associate Of Science In Nursing) #1 ea 04/01/24 insulin pump cart,auto,BT,G6/7 (Omnipod [...] Signature (if applicable): Date CC: ~ Signed [facility]05-14-2025 Discharge summary [facility] Medical Records Department [address] [place] [address] Discharge Summary 08/11/24 1440 MR#: [id number] Acct: [id number] Name: LAURIE GONZALES Rep #:[id number] : 1980 44 From: Louis Ricketts PCP: Dr. Kristal Sullivan MD Status:ADM I NO Location: [place] [address] 1 Providers Date of Admission: 08/10/24 Date [...] front sharpin nature along with nausea. Last LA in December2023 that required stent in LAD. By the time patient came to ED chest pain had subsided. Denies family history of LA at young age 3. ACS ruled out. [...] bifascicular block, RBBB and LAFB. ED physiciandiscussedwith naturopathic physician Dr. Lio Cross and he reviewed his previous cardiac cath in December 2023 which showed small vessel disease not amenable to intervention. Pharmacological stress test was done which she reported preservedEF, previous anterior infarct with mild ede-infarct infix ischemia. Discussed with the naturopathic physician Dr. Garcia who reported that stress and he said patient cango home. No acute LA. Patient is being discharged. 2. Essential hypertension: [...] On Friday. Patient is being dialyzed today. Soda Drier Feeder consulted. On sevelamer 5. History of chronic [...] ea 10/08/21 lancing device with lancets kit (Biosystem [employer] Plus Lancing Device kit) #100 ea 11/26/21 [...] #50 ea 03/30/24 blood-glucose meter,continuous (Dexcom G6 Associate Of Science In Nursing) #1 ea 04/01/24 insulin pump cart,auto,BT,G6/7 (Omnipod [...] had 1 stent in LAD during last LA in December 2023 Physical exam: General: Alert, [...] (Auto) 77.5 H, Lymph % (Auto) 12.1L, [place] % (Auto) 8.3, Eos % (Auto) 1.0, [...] (Auto) 75.1 H, Lymph % (Auto) 13.4L, [place] % (Auto) 9.6, Eos % (Auto) 0.8, [...] IMPRESSION: No acute cardiopulmonary abnormality. Reading Location: [id number] Chest CTA 08/10/24 21:35 IMPRESSION: No evidence of pulmonary embolism or acute findings in the thorax. 6.5 x 4.7 cm right hepatic lobe mass. Differential considerations include a hemangioma. Recommend further evaluation with CT or MRI liver protocol. Reading Location: [facility] D/C Instructions Discharge Diet: Low fat [...] PO Q12H (DME) lancing device with lancets [[employer] Delica Plus Lanc Dev] Kit See Rx [...] 1RF Rx Instructions: tid (DME) Dexcom G6 Associate Of Science In Nursing Misc See Rx Instructions .Route Qty: 1 0RF Rx Instructions: As directed ([facility]) Omnipod 5 G6-G7 Pods (Gen 5) Cartridge [...] Self Care Charges/Coding Visit Charges Inpatient E&M: 14519 Disch Hosp >30min 08/11/24 6441 Cosigner Signature (if applicable): CC: Dr. Kristal Sullivan MD; Dr. Daisy Diaz MD; Dr. Louis Koehler MD~ Signed [facility]05-14-2025 [facility] Discharge summary [facility] Medical Records Department [address] [place] [address] Instructions for Home/Discharge Instructions 08/11/24 1429 MR#: [id number] Acct: [id number] Name: LAURIE GONZALES Rep #:[id number] : 1980 44 From: Louis Ricketts PCP: [...] PO Q12H (DME) lancing device with lancets [[employer] Delica Plus Lanc Dev] Kit See Rx [...] .MEDSUPPLY Qty: 50 0RF Rx Instructions: daily ([facility]) insulin syringe-needle U-100 [BD Insulin Syringe Ultra-Fine] 0.3 mL 31 gauge x 5/16 syringe See Rx Instructions .Route Qty: 100 1RF Rx Instructions: tid (DME) Dexcom G6 Associate Of Science In Nursing Misc See Rx Instructions .Route Qty: 1 0RF Rx Instructions: As directed ([facility]) Omnipod 5 G6-G7 Pods (Gen 5) Cartridge [...] MD; Dr. Eugenia London DO ~ Signed [facility]05-14-2025 History and physical note Author Eugenia London [facility] Note Date/Time August 11, 2024 1:21a m [facility] Medical Records Department [address] [place] [address] H&P Exam - Hospitalist 08/10/24 2308 MR#: [id number] Acct: [id number] Name: LAURIE GONZALES Rep #:[id number] : 1980 44 From: Eugenia London DO PCP: Dr. Kristal Sullivan MD Status:ADM I NO Location: U [id number]- 1 HPI - General General Date of Admission: 08/10/24 Date of Service: 08/10/24 Chief Complaint: Chest pain HPI Narrative LAURIE GONZALES, is a 44 M who presented to the emergency department at [facility] on 08/10/2024 with a chief complaint of [...] CT or MRI liver protocol was recommended. [facility] Medical History Insulin dependent diabetes mellitus Diabetes [...] kit #100 ea 11/26/21 Unkno wn Rx ([employer] Delica Plus Lancing Device kit) pen needle, [...] #1 ea 04/01/24 Unknown Rx (Dexcom G6 Associate Of Science In Nursing) insulin pump cart,auto,BT,G6/7 #30 ea 04/01/24 Unknown [...] (Auto) 77.5 H, Lymph % (Auto) 12.1L, [place] % (Auto) 8.3, Eos % (Auto) 1.0, [...] IMPRESSION: No acute cardiopulmonary abnormality. Reading Location: [id number] Chest CTA 08/10/24 21:35 IMPRESSION: No evidence [...] Full code Charges/Coding Visit Charges Inpatient E&M: 72839 Init Hosp L2 08/11/24 0121 <Electronically signed by Eugenia London DO> Cosigner Signature (if applicable): CC: Dr. Kristal Sullivan MD; Dr. Eugenia London DO~ Signed [facility] Work Phone: 1(950) 744-447005-14-2025 Discharge summary Author Jace Farzana [facility] Note Date/Time August 10, 2024 11:53 pm [facility] Medical Records Department [address] [place] [address] Emergency Department Summary 08/10/24 MR#: [id number] Acct: [id number] Name: LAURIE GONZALES Rep #:[id number] : 1980 44 From: Jace Rios PCP: [...] Prior Similar Symptoms: Yes and With Prior LA CVD Risk Factors: Positive for Hypertension, Diabetes and Hypercholesterolemia; Negative for Family History 1' </=55 or Smoking PE Risk Factors: Negative for Recent Travel/Surgery, Recent Immobilization or Prior DVT or PE PFSH [facility] Medical History Insulin dependent diabetes mellitus Diabetes [...] #1 ea 04/01/24 Unknown Rx (Dexcom G6 Associate Of Science In Nursing) insulin pump cart,auto,BT,G6/7 #30 ea 04/01/24 Unknown [...] of the culprit lesion for non-ST elevation LA which is a diffuse left anterior descending [...] hemangioma. Currently symptom-free. I spoke with on-call naturopathic physician Dr. Cross discussed his history his cath [...] Cardiology, hospitalist This note was generated with [employer] dictation software. It may contain incorrectwords, spelling, [...] 77.5 H Lymph % (Auto) 12.1 L [place]ar % (Auto) 8.3 Eos % (Auto) 1.0 [...] IMPRESSION: No acute cardiopulmonary abnormality. Reading Location: [id number] Chest CTA 08/10/24 21:35 IMPRESSION: No evidence of pulmonary embolism or acute findings in the thorax. 6.5 x 4.7 cm right hepatic lobe mass. Differential considerations include a hemangioma. Recommend further evaluation with CT or MRI liver protocol. Reading Location: [facility] Discharge Plan Triage Chief Complaint: Chest [...] release 12 hr 1 tab PO Q12H ([facility]) lancing device with lancets [[email or web address] Delica Plus Lanc Dev] Kit See Rx Instructions .Route Qty: 100 1RF Rx Instructions: 4x/day ([facility]) pen needle, diabetic [BD Ultra-Fine Carol Pen Needle] 32 gauge x 5/32 needle See Rx Instructions .ROUTE .MEDSUPPLY Qty: 150 5RF Rx Instructions: 4 times daily ([facility]) pen needle, diabetic [BD Ultra-Fine Carol Pen Needle] 32 gauge x 5/32 needle See Rx Instructions .ROUTE .MEDSUPPLY Qty: 50 0RF Rx Instructions: daily ([facility]) insulin syringe-needle U-100 [BD Insulin Syringe Ultra-Fine] 0.3 mL 31 gauge x 5/16 syringe See Rx Instructions .Route Qty: 100 1RF Rx Instructions: tid ([facility]) Dexcom G6 Associate Of Science In Nursing Misc See Rx Instructions .Route Qty: 1 0RF Rx Instructions: As directed ([facility]) Omnipod 5 G6-G7 Pods (Gen 5) Cartridge See Rx Instructions .Route Qty: 30 1RF Rx Instructions: change every 3 days amlodipine 5 mg tablet 5 mg PO DAILY Qty: 90 3RF (DME) Dexcom G6 Sensor Device See Rx Instructions .Route Qty: 9 1RF Rx Instructions: 1 sensor q 10 days ([facility]) Dexcom G6 Transmitter Device See Rx Instructions .Route Qty: 1 1RF Rx Instructions: 1 q 90 days Primary Care Provider: Kristal Sullivan Referrals: Kristal Sullivan MD [Primary Care Provider] - Print Language: Cymro What to do if you have Problems For any increased pain, shortness of breath, bleeding, nausea or vomiting, chestpain, or any unexpected problems, contact your Primary Care Provider. Call [facility] ([phone]) or report to the closest Emergency Room. Call 911 if necessary. 08/10/24 3503 <Electronically signed by Jace Rios> Cosigner Signature (if applicable): CC: Dr. Kristal Sullivan MD ~ Signed [facility] Work Phone: 1(772) 702-393205-14-2025 History and physical note [facility] Medical Records Department [address] [place] [address] H&P Exam - Hospitalist 08/10/24 8990 MR#: [id number] Acct: [id number] Name: LAURIE GONZALES Rep #:[id number] : 1980 44 From: Eugenia London DO PCP: Dr. Kristal Sullivan MD Status:ADM I NO Location: [facility] ABK286- 1 HPI - General General Date of Admission: 08/10/24 Date of Service: 08/10/24 Chief Complaint: Chest pain HPI Narrative LAURIE GONZALES, is a 44 M who presented to the emergency department at [facility] on 08/10/2024 with a chief complaint of [...] CT or MRI liver protocol was recommended. [facility] Medical History Insulin dependent diabetes mellitus Diabetes [...] #1 ea 04/01/24 Unknown Rx (Dexcom G6 Associate Of Science In Nursing) insulin pump cart,auto,BT,G6/7 #30 ea 04/01/24 Unknown [...] (Auto) 77.5 H, Lymph % (Auto) 12.1L, [place] % (Auto) 8.3, Eos % (Auto) 1.0, [...] IMPRESSION: No acute cardiopulmonary abnormality. Reading Location: [id number] Chest CTA 08/10/24 21:35 IMPRESSION: No evidence of pulmonary embolism or acute findings in the thorax. 6.5 x 4.7 cm right hepatic lobe mass. Differential considerations include a hemangioma. Recommend further evaluation with CT or MRI liver protocol. Reading Location: [facility] Assessment & Plan Assessment/Plan (1) Chest [...] Full code Charges/Coding Visit Charges Inpatient E&M: 33989 Init Hosp L2 08/11/24 0121 Cosigner Signature (if applicable): CC: Dr. Kristal Sullivan MD; Dr. Eugenia London DO~ Signed [facility]05-13-2025 Discharge summary [facility] Medical Records Department [address] [place] [address] Emergency Department Summary 08/10/24 MR#: [id number] Acct: [id number] Name: LAURIE GONZALES Rep #:[id number] : 1980 44 From: Jace Rios PCP: [...] Prior Similar Symptoms: Yes and With Prior LA CVD Risk Factors: Positive for Hypertension, Diabetes and Hypercholesterolemia; Negative for FamilyHistory 1' PE Risk Factors: Negative for Recent Travel/Surgery, Recent Immobilization or Prior DVT or PE [facility] Medical History Insulin dependent diabetes mellitus Diabetes [...] ?Recorded ?Last Taken ?Type blood sugar diagnostic ([employer] #100 ea 10/08/21 Unk nown Rx Lite Strips) lancing device with lancets kit #100 ea 11/26/21 Unkno wn Rx ([employer] Delica Plus Lancing Device kit) pen needle, [...] #1 ea 04/01/24 Unknown Rx (Dexcom G6 Associate Of Science In Nursing) insulin pump cart,auto,BT,G6/7 #30 ea 04/01/24 Unknown [...] of the culprit lesion for non-ST elevation LA which is a diffuse left anterior descending [...] Currently symptom- free. I spoke with on-call naturopathic physician Dr. Cross discussed his history his cath [...] 77.5 H Lymph % (Auto) 12.1 L [place] % (Auto) 8.3 Eos % (Auto) 1.0 [...] IMPRESSION: No acute cardiopulmonary abnormality. Reading Location: [id number] Chest CTA 08/10/24 21:35 IMPRESSION: No evidence of pulmonary embolism or acute findings in the thorax. 6.5 x 4.7 cm right hepatic lobe mass. Differential considerations include a hemangioma. Recommend further evaluation with CT or MRI liver protocol. Reading Location: [facility] Discharge Plan Triage Chief Complaint: Chest [...] PO Q12H (DME) lancing device with lancets [[employer] Plus Lanc Dev] Kit See Rx Instructions [...] 1RF Rx Instructions: tid (DME) Dexcom G6 Associate Of Science In Nursing Misc See Rx Instructions .Route Qty: 1 0RF Rx Instructions: As directed ([facility]) Omnipod 5 G6-G7 Pods (Gen 5) Cartridge [...] MD [Primary Care Provider] - Print Language: Cymro What to do if you have Problems For any increased pain, shortness of breath, bleeding, nausea or vomiting, chestpain, or any unexpected problems, contact your Primary Care Provider. Call [facility] ([phone]) or report tothe closest Emergency Room. Call 911 if necessary. 08/10/24 7839 Cosigner Signature (if applicable): CC: Dr. Kristal Sullivan MD ~ Signed [facility]05-13-2025 Radiology Diagnostic study note [facility] Imaging Services [address] [place] [address] CTA Chest W/WO Contrast MR#: [id number] Acct: [id number] Name: LAURIE GONZALES Rep #: [id number] : 1980 M 44 From: Eboni Becerra MD PCP: Dr. Kristal Sullivan MD Status: REG E R Study:CTA Chest W/WO Contrast Date of Exam: 08/10/24 Exam# [id number] Ordering Dr: Jace Yanes DO PROCEDURE: CTA [...] Sullivan MD; Dr. Jace Yanes DO ~ Surgical Supply Assistant: Signed [facility]05-13-2025 Radiology Diagnostic study note [facility] Imaging Services [address] [place] [place], [place] [id number] Chest PA and Lateral MR#: [id number] Acct: [id number] Name: LAURIE GONZALES Rep #: [id number] : 1980 M 44 From: Heather Brown MD PCP: Dr. Kristal Sullivan MD Status: REG E R Study:Chest PA and Lateral Date of Exam: 08/10/24 Exam# [id number] Ordering Dr: Jace Yanes DO PROCEDURE: CHEST [...] Sullivan MD; Dr. Jace Yanes DO ~ Surgical Supply Assistant: Signed [facility]05-13-2025 Telephone encounter Note* Telephone Encounter - Kristal Sullivan MD - 08/10/2024 4:56 PM EDT Patient called and requested zofran refill for her nausea. Regards, Kristal Sullivan MD [facility]05-13-2025 Miscellaneous Notes* Telephone Encounter - Kristal Sullivan MD - 08/10/2024 4:56 PM EDT Patient called and requested zofran refill for her nausea. Regards, Kristal Sullivan [facility] Discharge summary Author Jace Yanes [facility] Note Date/Time August 10, 2024 11:53 pm [facility] Medical Records Department [address] [place] [address] Emergency Department Summary 08/10/24 MR#: [id number] Acct: [id number] Name: LAURIE GONZALES Rep #:[id number] : 1980 44 From: Jace Rios PCP: [...] Prior Similar Symptoms: Yes and With Prior LA CVD Risk Factors: Positive for Hypertension, Diabetes and Hypercholesterolemia; Negative for Family History 1' </=55 or Smoking PE Risk Factors: Negative for Recent Travel/Surgery, Recent Immobilization or [facility] or [facility] History Insulin dependent diabetes mellitus Diabetes [...] #1 ea 04/01/24 Unknown Rx (Dexcom G6 Associate Of Science In Nursing) insulin pump cart,auto,BT,G6/7 #30 ea 04/01/24 Unknown [...] of the culprit lesion for non-ST elevation LA which is a diffuse left anterior descending [...] hemangioma. Currently symptom-free. I spoke with on-call naturopathic physician Dr. Cross discussed his history his cath [...] Cardiology, hospitalist This note was generated with [employer] dictation software. It may contain incorrectwords, spelling, [...] 77.5 H Lymph % (Auto) 12.1 L [place] % (Auto) 8.3 Eos % (Auto) 1.0 [...] IMPRESSION: No acute cardiopulmonary abnormality. Reading Location: [id number] Chest CTA 08/10/24 21:35 IMPRESSION: No evidence of pulmonary embolism or acute findings in the thorax. 6.5 x 4.7 cm right hepatic lobe mass. Differential considerations include a hemangioma. Recommend further evaluation with CT or MRI liver protocol. Reading Location: [facility] Discharge Plan Triage Chief Complaint: Chest [...] PO Q12H (DME) lancing device with lancets [[employer] Delica Plus Lanc Dev] Kit See Rx [...] 1RF Rx Instructions: tid (DME) Dexcom G6 Associate Of Science In Nursing Misc See Rx Instructions .Route Qty: 1 [...] MD [Primary Care Provider] - Print Language: Cymro What to do if you have Problems For any increased pain, shortness of breath, bleeding, nausea or vomiting, chestpain, or any unexpected problems, contact your Primary Care Provider. Call [facility] ([phone]) or report to the closest Emergency Room. Call 911 if necessary. 08/10/24 6330 <Electronically signed by Jace Rios> Cosigner Signature (if applicable): CC: Dr. Kristal Sullivan MD ~ Signed [facility] Work Phone: 1(670) 605-726004-22-2025 History and physical note Author Garrison Valadez [facility] Note Date/Time July 20, 2024 3:5 6pm [facility] Medical Records Department [address] [place] [address] History & Physical Exam 07/20/24 1555 MR#: [id number] Acct: [id number] Name: LAURIE GONZALES Rep #:[id number] : 1980 43 From: Garrison Valadez MD PCP: Dr. Kristal Sullivan MD [facility] Location: [place] [address] History and Physical Allergies No Known Allergies Allergy (Verified 06/18/24 11:29) Medications ?Medication ?Instructions ?Recorded ?Confirmed ?Type blood sugar diagnostic (FreeStyle #100 ea 10/08/21 06/18/24 Rx Lite Strips) lancing device with lancets kit #100 ea 11/26/21 06/18/24 Rx ([email or web address] Delica Plus Lancing Device kit) pen needle, [...] #1 ea 04/01/24 06/18/24 Rx (Dexcom G6 Associate Of Science In Nursing) blood-glucose sensor (Dexcom G6 #9 ea 04/01/24 [...] distress Orientation: alert, awake and oriented x3 [facility]: no palpable skull fracture, normocephalic [...] Sullivan MD; Dr. Garrison Valadez MD~ Signed [facility] Work Phone: 1(176) 896-698804-22-2025 Procedure note [facility] Medical Records Department [address] [place] [address] Operative Report 07/20/24 1650 MR#: [id number] Acct: [id number] Name: LAURIE GONZALES Rep #:[id number] : 1980 43 From: Garrison Valadez MD PCP: Dr. Kristal Sullivan MD Status:REG S DC Location: [place] [address] Operative Report (Standard) Operative Information Date of Procedure: 07/20/24 Pre-Operative Diagnosis: non-maturing left rad-ceph fistula Post-Operative Diagnosis: same Surgery/Procedure Performed: ligation multiple fistula branches tank pumper panelboard: Yes Superintendent Drilling And Production: Pako Bowman Tasks completed by assistant dean: Opening, Closing, Opening & closing and Hemostasis: [...] Findings: see above Complications Complications: No 07/20/24 3577 Cosigner Signature (if applicable): CC: Dr. Kristal Sullivan MD; Dr. aGrrison Valadez MD~ Signed [facility]04-22-2025 Consult note [facility] Medical Records Department [address] [place] [address] Anesthesia Postop Eval I 07/20/24 1654 MR#: [id number] Acct: [id number] Name: LAURIE GONZALES Rep #:[id number] : 1980 43 From: Siva Drew CRNA PCP: Dr. Kristal Sullivan MD Status:REG S DC Y Race: C Location: [place] [address] Anesthesia: Postop Eval I Current Vital Signs [...] Eval 1 completed: Yes 07/20/24 1655 y SHIPPING RECEIVING CLERK> Date _ Siva Drew SHIPPING RECEIVING CLERK Cosigner Signature: Date CC: ~ Signed [facility]04-22-2025 Discharge summary [facility] Medical Records Department [address] [place] [address] Instructions for Home/Discharge Instructions 07/20/24 1640 MR#: [id number] Acct: [id number] Name: LAURIE GONZALES Rep #:[id number] : 1980 43 From: Garrison Valadez MD [...] Care Provider: Kristal Sullivan Instructions Print Language: Cymro Discharge Orders/Prescriptions Prescriptions: New oxycodone 5 mg [...] (Reason: PRN) (DME) lancing device with lancets [[employer] Delica Plus Lanc Dev] Kit See Rx [...] 1RF Rx Instructions: tid (DME) Dexcom G6 Associate Of Science In Nursing Misc See Rx Instructions .Route Qty: 1 [...] CC: Dr. Kristal Sullivan MD ~ Signed [facility]04-22-2025 History and physical note [facility] Medical Records Department [address] [place] [address] History & Physical Exam 07/20/24 1555 MR#: [id number] Acct: [id number] Name: LAURIE GONZALES Rep #:[id number] : 1980 43 From: Garrison Valadez MD PCP: Dr. Kristal Sullivan MD Status:REG S [facility] Location: [place] [address] History and Physical Allergies No Known Allergies Allergy (Verified 06/18/24 11:29) Medications ?Medication ?Instructions ?Recorded ?Confirmed ?Type blood sugar diagnostic (FreeStyle #100 ea 10/08/21 06/18/24 Rx Lite Strips) lancing device with lancets kit #100 ea 11/26/21 06/18/24 Rx ([email or web address] Delica Plus Lancing Device kit) pen needle, [...] #1 ea 04/01/24 06/18/24 Rx (Dexcom G6 Associate Of Science In Nursing) blood-glucose sensor (Dexcom G6 #9 ea 04/01/24 [...] Sullivan MD; Dr. Garrison Valadez MD~ Signed [facility]04-22-2025 Consult note Author Shaun Thompson [facility] Note Date/Time July 20, 2024 1:5 5pm [facility] Medical Records Department [address] [place] [address] Pre-Anesthesia Evaluation 07/20/24 1348 MR#: [id number] Acct: [id number] Name: LAURIE GONZALES Rep #:[id number] : 1980 43 From: Shaun Thompson MD PCP: Dr. Kristal Sullivan MD Status:REG S DC Y Race: C Location: [facility]-1 ASA Classification* ASA Classification ASA Classification: 3 [...] Arteriovenous Ligation Anesthesia History Anesthesia History - rat breeder: Anesthesia History - rat breeder Hx Hospitalization Yes: 12/202307/16/24 14:53 Any Problems [...] sips of water?: Yes PONV PONV - rat breeder: PONV - rat breeder Female No 07/16/24 14:53 HX of Motion [...] 07/20/24 13:23 Respiratory Assessment Respiratory Assessment - rat breeder: Respiratory Tract Infection Hx - rat breeder Hx Respiratory Tract Infection No 07/16/24 14:53 STOP Sleep Apnea STOP Sleep Apnea - rat breeder: STOP Sleep Apnea - rat breeder Hx Hypertension Yes: CONTROLLED ON MED 07/16/24 [...] Tobacco Use History Tobacco Use History - rat breeder: Tobacco Use History - rat breeder Tobacco Use Non-smoker 06/30/24 15:56 Smoking Status Never smoker 07/16/24 14:53 Hx Tobacco Use No 07/16/24 14:53 Years Smoking Packs Smoked per Day Smoking Cessation Date was within the last 15 years Hx Smoking Cessation Date Hx Smoking Cessation Counseling Hematologic Medial History Hematologic Hx - rat breeder: Hematologic 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 Hx of Blood Transfusion Yes 07/16/24 14:53 [...] confused, unrespo /Reproduction History /Reproductive History - rat breeder: /Reproductive Hx- rat breeder Hx Now Gestational Age (in weeks): EDC: Hx Hx Para Hx Section SAB No 07/16/24 14:53 Active Medications Active Medications: Current Medications Generic Name Dose Route Start Last Admin Trade Name Freq PRN Reason Stop Dose Admin Cefazolin Sodium 2 gm/ N/A 20 mls @ 400 mls/hr 07/20/24 14:30 IV 07/20/24 14:32 INTRAOP ONE [facility] Medical History Insulin dependent diabetes mellitus Diabetes [...] #1 ea 04/01/24 Unknown Rx (Dexcom G6 Associate Of Science In Nursing) blood-glucose sensor (Dexcom G6 #9 ea 04/01/24 [...] MD Cosigner Signature: Date CC: ~ Signed [facility] Work Phone: 1(963) 105-606504-22-2025 [facility]04-22-2025 Consult note [facility] Medical Records Department [address] [place] [address] Pre-Anesthesia Evaluation 07/20/24 1348 MR#: [id number] Acct: [id number] Name: LAURIE GONZALES Rep #:[id number] : 1980 43 From: Shaun Thompson MD PCP: Dr. Kristal Sullivan MD Status:REG S DC Y Race: C Location: [place] [address] ASA Classification* ASA Classification ASA Classification: 3 [...] Arteriovenous Ligation Anesthesia History Anesthesia History - rat breeder: Anesthesia History - rat breeder Hx Hospitalization Yes: 12/202307/16/24 14:53 Any Problems [...] sips of water?: Yes PONV PONV - rat breeder: PONV - rat breeder Female No 07/16/24 14:53 HX of Motion [...] 07/20/24 13:23 Respiratory Assessment Respiratory Assessment - rat breeder: Respiratory Tract Infection Hx - rat breeder Hx Respiratory Tract Infection No 07/16/24 14:53 STOP Sleep Apnea STOP Sleep Apnea - rat breeder: STOP Sleep Apnea - rat breeder Hx Hypertension Yes: CONTROLLED ON MED 07/16/24 [...] Tobacco Use History Tobacco Use History - rat breeder: Tobacco Use History - rat breeder Tobacco Use Non-smoker 06/30/24 15:56 Smoking Status Never smoker 07/16/24 14:53 Hx Tobacco Use No 07/16/24 14:53 Years Smoking Packs Smoked per Day Smoking Cessation Date was within the last 15 years Hx Smoking Cessation Date Hx Smoking Cessation Counseling Hematologic Medial History Hematologic Hx - rat breeder: 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 Author Type: Registered Nurse Type: Progress Notes Filed: 07/14/2024 11:14 Note Text: I left a detailed vm for Mr Gonzales informing him he is actively listed. I encouraged him to have a bag packed, support person aware and phone numbers current. [facility] History of Present illness Narrative* Roro Pollard RN - 07/14/2024 11:11 AM EDT I left a detailed vm for Mr Gonzales informing him he is actively listed. I encouraged him to have abag packed, support person aware and phone numbers current. Roro Pollard RN documented in this encounterAd[facility]04-16-2025 NoteHNO ID: [id number] Author: RORO POLLARD RN Service: ? Author [...] [facility] waiting list. Roro Pollard RN Pre-Transplant CoordinatorSouthern [facility]04-16-2025 History of Present illness Narrative* [...] the [facility] waiting list. Roro Pollard RN Pre-Driver Education Road Instructor documented in this encounterAdams [facility] Hospital03-26-2025 Note* Addendum Note - Roro Pollard RN - 06/23/2024 1:39 PM EDTAddended by: RORO POLLARD on: 06/23/2024 01:39 PM Modules accepted: Orders [facility]03-26-2025 Miscellaneous Notes* Addendum Note - Roro Pollard RN - 06/23/2024 1:39 PM EDTAddended by: RORO POLLARD on: 06/23/2024 01:39 PM Modules accepted: Orders documented in this encounterAdams County Hospital03-26-2025 NoteHNO ID: [id number] Author: RORO POLLARD RN Service: ? Author [...] online web address and office phone number. [email or web address] Office Reminded Laurie Gonzales that if [...] if patient is on dialysis Yes HD, [facility] Discussed with the patient that staying up [...] once they are listed: Bg Jennings RN [phone]. Patient verbalized understanding of all the information that was discussed. Will move forward with the listing process for kidney-pancreas transplant. Roro Pollard RN Pre-Kidney AND Pancreas Driver Education Road Instructor [facility]03-26-2025 History of Present illness Narrative* Roro Pollard [...] Office online web address and officephone number. [email or web address] Office Reminded Laurie Gonzales that if uncomfortable [...] if patient is on dialysis Yes HD, [facility] Discussed with the patient that staying up [...] case once they are listed:Bg Jennings RN [phone]. Patient verbalized understanding of all the information that was discussed. Will move forward with the listing process for kidney-pancreas transplant. Roro Pollard RN Pre-Kidney & Pancreas Driver Education Road Instructor [facility] documented in this encounterAdams County Hospital03-26-2025 Telephone encounter Note * Telephone Encounter - Vianey Romo MA - 06/23/2024 9:14 AM EDT Patient notified form is ready for tack picker. [facility]03-26-2025 Miscellaneous Notes* Telephone Encounter - Vianey Romo MA - 06/23/2024 9:14 AM EDT Patient notified form is ready for tack picker. * Telephone Encounter - Kim Loving MA - 06/18/2024 3:29 PM EDT Type of form: BMV Request for Statement of Physician Form received via walk in When form is completed, Scan form into Epic & call patient for tack picker Form has been forwarded to Physician Desk: Dr. Marly Loving MA documented in this encounterAdams County Hospital03-21-2025 Telephone encounter Note * Telephone Encounter - Kim Loving MA - 06/18/2024 3:29 PM EDT Type of form: BMV Request for Statement of Physician Form received via walk in When form is completed, Scan form into Epic & call patient for tack picker Form has been forwarded to Physician Desk: Dr. Marly Loving MA [facility]03-21-2025 Evaluation note* Diagnosis Onset Date Resolution [...] 2024 2:27pm Odynophagia acute August 17 2:27pm [facility] Work Phone: 1(877) 829-930503-21-2025 Evaluation note* Diagnosis Onset Date Resolution Status [...] Erosive esophagitis acute September 07, 2024 12:44pm [facility] [employer] Work Phone: 1(293) 951-230803-21-2025 Evaluation note* Diagnosis Onset Date Resolution Status [...] 2024 3:01pm Hypertension chronic August 31 3:01pm [facility] Work Phone: 1(169) 925-845603-21-2025 Evaluation note* Diagnosis Onset Date Resolution Status [...] 2024 10:25am Odynophagia acute August 31 10:25am [facility] Work Phone: 1(847) 511-828903-18-2025 Instructions* Patient Instructions* Kristal Sullivan MD - [...] completion. 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 documented in this encounterAdams County Hospital03-18-2025 NoteHNO ID: [id number] Author: KRISTAL SULLIVAN MD Service: ? Author [...] thirst. - Discussed Ozempic and Mounjaro with TRIAGE SPECIALIST for appetite control. - On [facility]. - Taking vitamin D, increased to 3 pills daily. CAD: - LA in March, with stent placement in LAD. - Reports nausea, weakness, and difficulty walking during LA. - Underwent stress test post-LA. - Taking aspirin daily. - On metoprolol succinate 25 mg daily and amlodipine. - Stopped lisinopril due to lack of refills. Pulmonary Edema: - Developed pulmonary edema post-LA, requiring BiPAP for a week. - Denies current asthma symptoms; not taking montelukast. Weight Management: - Current weight 202 lbs, down from 211 lbs. - Reports weight fluctuations due to fluid retention and dialysis. 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 - Enjoys outdoor activities like fishing and riding a 4-vick. - Describes self as lazy and does not engage in regular exercise. - Sleeps well and denies significant stress. 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 [...] (FREESTYLE LITE STRIPS) test strip MEDICAL SUPPLY [facility].Gluc.Intol,Lac-Free,Soy (GLUCERNA SHAKE) liqd rosuvastatin (CRESTOR) 20 mg tablet insulin aspart U-100 (NOVOLOG FLEXPEN U-100 INSULIN) 100 unit/mL (3 mL) alcohol swabs padm Insulin [place], Disposable, (BD ULTRA-FINE CAROL PEN NEEDLE) 32 gauge x 5/32 ndle Zn Sblzmih-Guynzotwfti-Dyr (AMERIGEL) gel metoprolol succinate ER (TOPROL XL) 25 mg 24 hr tablet amLODIPine (NORVASC) 5 mg tablet Cholecalciferol, Vitamin D3, 125 mcg (5,000 unit) cap insulin glargine (LANTUS SOLOSTAR, BASAGLAR KWIKPEN) 100 unit/mL (3 mL) glucose 4 gram chewable tablet lancets (FREESTYLE LANCETS) 28 gauge [facility] Health Maintenance Depression Screening Anxiety Screening BP [...] - 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 2. Obstructive sleep apnea (adult) (pediatric) ( (more content not included)... [facility]03-18-2025 History of Present illness Narrative* [...] thirst. - Discussed Ozempyusuf and Mounedero with TRIAGE SPECIALIST for appetite control. - On kidney and pancreas transplant list [facility]. - Taking vitamin D, increased to 3 pills daily. CAD: - LA in March, with stent placement in LAD. - Reports nausea, weakness, and difficulty walking during LA. - Underwent stress test post-LA. - Taking aspirin daily. - On metoprolol succinate 25 mg daily and amlodipine. - Stopped lisinopril due to lack of refills. Pulmonary Edema: - Developed pulmonary edema post-LA, requiring BiPAP for a week. - Denies current asthma symptoms; not taking montelukast. Weight Management: - Current weight 202 lbs, down from 211 lbs. - Reports weight fluctuations due to fluid retention and dialysis. 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 - Enjoys outdoor activities like fishing and riding a 4-vick. - Describes self as lazy and does not engage in regular exercise. - Sleeps well and denies significant stress. 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 [...] (FREESTYLE LITE STRIPS) test strip MEDICAL SUPPLY [facility].Ca.Gluc.Intol,Lac-Free,Soy (GLUCERNA SHAKE) liqd rosuvastatin (CRESTOR) 20 mg tablet insulin aspart U-100 (NOVOLOG FLEXPEN U-100 INSULIN) 100 unit/mL (3 mL) alcohol swabs padm Insulin [place], Disposable, (BD ULTRA-FINE CAROL PEN NEEDLE) 32 gauge x 5/32 ndle Zn Cttjmkq-Whsypdjtvaz-Oxk (AMERIGEL) gel metoprolol succinate ER (TOPROL XL) 25 mg 24 hr tablet amLODIPine (NORVASC) 5 mg tablet Cholecalciferol, Vitamin D3, 125 mcg (5,000 unit) cap insulin glargine (LANTUS SOLOSTAR, BASAGLAR KWIKPEN) 100 unit/mL (3 mL) glucose 4 gram chewable tablet lancets (FREESTYLE LANCETS) 28 gauge [facility] Health Maintenance Depression Screening Anxiety Screening BP [...] - 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 2. Obstructive sleep apnea (adult) (pediatric) (G47.33) - Managed with BiPAP machine. - Continue current treatment. 3. Essential (primary) hypertension (I10) - Blood pressure management with metoprolol succinate once daily and amlodipine. - Advised to reduce amlodipine to the lowest dose of 2.5 mg and attempt discontinuation. - Emphasized the importance of continuing metoprolol for cardiac health. 4. MCC (current) use of insulin (HCC) (Z79.4) - [...] On [facility]. - Continue current dialysis regimen and follow-up with transplant team. Voice recognition software was used to compose this office note. Please excuse any unintended typographical errors. The patient consented to the use of ambient AI software for draft documentation of the visit consistent with [facility] s Notice of Privacy Practices. Kristal Sullivan MD documented in this encounterAdams County Hospital03-07-2025 History of Present illness Narrative* Rukhsana Hernandez RPh - 06/04/2024 1:44 PM EST I have reviewed the patient s medication profile and there are no identified medication issues thatwould preclude transplant in this patient. Rukhsana Hernandez PharmD documented in this encounterAdams County Hospital03-07-2025 NoteHNO ID: [id number] Author: RUKHSANA HERNANDEZ RPh Service: ? Author Type: Pharmacist Type: Progress Notes Filed: 06/04/2024 13:45 Note Text: I have reviewed the patient?s medication profile and there are no identified medication issues that would preclude transplant in this patient. [facility]03-[facility]-2025 NoteHNO ID: [id number] Author: CIARRA CATALAN LISW Service: ? Author Type: Upholstery Technician Type: Progress Notes Filed: 06/03/2024 11:29 Note [...] of non compliance. JUSTIN Andrews-S Transplant Social WorkerSouthern [facility]03-06-2025 History of Present illness Narrative* [...] history of non compliance. JUSTIN Andrews-Kaylen Transplant Upholstery Technician documented in this encounterAdams County Hospital02-28-2025 NoteHNO ID: [id number] Author: VIANEY ROMO MA Service: ? Author Type: Glass Robot Operator Type: Progress Notes Filed: 05/28/2024 12:59 Note Text: My Chart message sent to patient.[facility]02-28-2025 History of Present illness Narrative* [...] appt to review diabetes. documented in this encounterAdams County Hospital02-28-2025 NoteHNO ID: [id number] Author: KAYLA TANNER LPN Service: ? Author Type: LICENSED NURSE Type: Progress Notes Filed: 05/28/2024 12:59 Note Text: Appt arranged with pcp . any labs due before appt? Will have to send pt a my chart message to advise of [facility] [id number] Telephone encounter Note* Telephone Encounter - Ciarra Catalan LISW - 05/25/2024 3:21 PM EST SW received a phone call from pt's mother Page ([phone]) regarding support. SW reviewed the follow up care sequence, including lab work twice a week and twice a week post transplant clinic appointments. SW also discussed the need to have a caregiver full time staff interpreter for 2 weeks post transplant. Page reports being 66yrs old and she is retired. Page stated she is available whenever needed to assist with caregiver / transportation support. Page verified her commitment to help pt post transplant. WILBUR Andrews Transplant Upholstery Technician [facility] Work Phone: [phone]) 780-8428313160-20-3055 Miscellaneous Notes* Telephone Encounter - Ciarra Catalan LISW - 05/25/2024 3:21 PM EST SW received a phone call from pt's mother Page ([phone]) regarding support. SW reviewed the follow up care sequence, including lab work twice a week and twice a week post transplant clinic appointments. SW also discussed the need to have a caregiver full time staff interpreter for 2 weeks post transplant. Page reports being 66yrs old and she is retired. Page stated she is available whenever needed to assist with caregiver / transportation support. Page verified her commitment to help pt post transplant. WILBUR Andrews Transplant Upholstery Technician * Telephone Encounter - Ciarra Catalan LISW [...] will await phone calls. documented in this encounterAdams County Hospital02-25-2025 Telephone encounter Note * Telephone Encounter [...] verbalized understanding. SW will await phone calls. [facility]02-24-2025 NoteHNO ID: [id number] Author: KAYLA TANNER LPN Service: ? Author Type: LICENSED NURSE Type: Progress Notes Filed: 05/28/2024 12:59 Note Text: Pt has reviewed the my chart message.[facility]02-21-2025 Note HNO ID: [id number] Author: KAYLA TANNER LPN Service: ? Author Type: LICENSED NURSE Type: Progress Notes Filed: 05/28/2024 12:59 Note Text: My chart message to pt to call for an appt to review diabetes.[facility]02-21-2025 NotePatient Outreach (INTMWS) LAURIE GONZALES ([id number]) 1980 M Date Time Provider Department 05/21/24 [...] other specified complication (HCC) [E10.69] Order(s):HEMOGLOBIN A1C [HSMJO0V] Order #: [id number] STANDING COMPREHENSIVE METABOLIC PANEL [SQCMP] Order #: [id number] STANDING COMPLETE BLOOD COUNT [SQCBC] Order #: [id number] STANDING THYROID STIMULATING HORMONE [SQTSH] Order #: [id number] STANDING LIPID PANEL BASIC [SQLIPB] Order #: [id number] STANDING Prescriptions as of 05/28/2024 - Acetone, [...] mouth as needed. - Ketone Blood Test (Nanotion XTRA B-KETONE) strp Test KETONES as directed. [...] AFFECTED AREA FIVE TIMES DAILY - Insulin [place], Disposable, (BD ULTRA-FINE CAROL PEN NEEDLE) 32 gauge x 5/32 ndle Use one needle for each dose. 7/day. - Zn Avwqqby-Evtmdxtihog-Auw (AMERIGEL) gel Apply 1 application to affected [...] 12/01/2020 Encounter Status:Closed by VIANEY ROMO on 05/28/24[facility] 04-29-2024 Telephone encounter Note* Telephone Encounter - Ciarra Catalan LISW - 04/29/2024 10:47 AM EST SW called pt in preparation of selection committee. SW reminded pt that both his primary and backupsupport needs to be verified. SW requested that they contact SW to verify their commitment. Pt verbalized understanding. SW will await phone calls. WILBUR Andrews Transplant Upholstery Technician [facility] Work Phone: [phone]) 887-903101-30-2025 Miscellaneous Notes* Telephone Encounter - Ciarra Catalan LISW - 04/29/2024 10:47 AM EST SW called pt in preparation of selection committee. SW reminded pt that both his primary and backupsupport needs to be verified. SW requested that they contact SW to verify their commitment. Pt verbalized understanding. SW will await phone calls. WILBUR Andrews Transplant Upholstery Technician documented in this encounterAdams County Hospital01-24-2025 Evaluation note* Diagnosis Onset Date Resolution Status Admit Date AV fistula acute April 23, 2024 8:10am ESRD (end stage renal diseas e) on dialysis acute April 23 8:10am Malfunction of arteriovenous dialysis fistula acute June 18 11:17am [facility] Work Phone: 1(144) 860-553001-24-2025 Evaluation note* Diagnosis Onset Date Resolution Status [...] AV fistula acute August 05, 2024 10:47am [facility] Work Phone: 1(881) 936-498101-24-2025 Evaluation note* Diagnosis Onset Date Resolution Status [...] 2024 11:09pm Elevated troponin acute July 11:09pm [facility] Work Phone: 1(313) 219-674401-24-2025 Evaluation note* Diagnosis Onset Date Resolution Status [...] 2024 2:27pm Odynophagia acute August 17 2:27pm [facility] [employer] Work Phone: 1(152) 120-633401-13-2025 History of Present illness Narrative* Ira Osorio [...] PATIENT PRESENTS WITH AN IMPLANTABLE OR ATTACHED SENIOR PLANNER: n/a CREATININE: Creatinine Date Value Ref Range [...] Discontinued PROCEDURE TYPE: NM Stress: 14.2 mCi Xp73k-Vsjqygj was administered IV for Rest Imaging at 08:20 by Ira Osorio. 34.8 mCi Rb12r-Kbqxpki was administered IV for Stress Imaging at 09:32 by Ira Osorio. PATIENT DISCHARGED TO: Ambulatory patient, left [place] department area. Is this a therapy: No A Diagnostic radioactive procedure has taken place, with no further precautions necessary other than routine body substance precautions. More information regarding radiation safety can be found usingthis link: [email or web address]%20Nuclear%20Medicine%20Procedures.pdf SIGNATURE: RT Cooper (R) PATIENT NAME: Laurie Gonzales DATE: April 12, 2024 TIME: 11:11 AM PAGER/CONTACT #: documented in this encounterAdams County Hospital01-13-2025 NoteHNO ID: [id number] Author: IRA OSORIO RT (R) Service: Nuclear [...] PATIENT PRESENTS WITH AN IMPLANTABLE OR ATTACHED SENIOR PLANNER: n/a CREATININE: Creatinine Date Value Ref Range [...] Discontinued PROCEDURE TYPE: NM Stress: 14.2 mCi Cd81b-Tpisiiw was administered IV for Rest Imaging at 08:20 by Ira Osorio. 34.8 mCi Tm91l-Yzznpjk was administered IV for Stress Imaging at 09:32 by Ira Osorio. PATIENT DISCHARGED TO: Ambulatory patient, left [place] department area. Is this a therapy: No A Diagnostic radioactive procedure has taken place, with no further precautions necessary other than routine body substance precautions. More information regarding radiation safety can be found using this link: [email or web address]%20Nuclear%20Medicine%[email or web address] SIGNATURE: RT Kenneth(R) PATIENT NAME: Laurie Gonzales DATE: April 12, 2024 TIME: 11:11 AM PAGER/CONTACT #:[facility]01-08-2025 Telephone encounter Note* Telephone Encounter - Willie Gonzalez RN - 04/07/2024 3:15 PM EST Nuc pharm stress test instructions provided to patient via [facility] msg. [facility]01-08-2025 Miscellaneous Notes* Telephone Encounter - Willie Gonzalez RN - 04/07/2024 3:15 PM EST Nuc pharm stress test instructions provided to patient via msg. documented in this encounterAdams County Hospital11-27-2024 Evaluation note* Diagnosis Onset Date Resolution [...] 2024 10:19am Vitamin D deficiency chronic [facility] 2023 10:19am AV fistula acute April 23, 2024 8:10am ESRD (end stage renal diseas e) on dialysis acute April 23 8:10am Malfunction of arteriovenous dialysis fistula acute June 18 11:17am [facility] Work Phone: 1(313) 943-866211-12-2024 Telephone encounter Note* Telephone Encounter - Roro [...] him know I will follow upwith our financial compliance examiner to assist and give him a call. Mr Gonzales acknowledged understanding. Roro Pollard RN [facility]11-12-2024 Miscellaneous Notes* Telephone Encounter - Roro [...] him know I will follow upwith our financial compliance examiner to assist and give him a call. Mr Gonzales acknowledged understanding. Roro Pollard RN * Telephone Encounter - Genet Persaud - 02/06/2024 3:07 PM EST Patient called regarding an update . Requesting a return call from the program and research coordinator. Please call him at [phone]. Genet Persaud documented in this encounterAdams County Hospital11-08-2024 Telephone encounter Note * Telephone Encounter - Genet Persaud - 02/06/2024 3:07 PM EST Patient called regarding an update . Requesting a return call from the program and research coordinator. Please call him at [phone]. Genet Persaud [facility] Work Phone: [phone]) [phone] [facility]06-03-2024 History of Present illness Narrative* Roro Pollard (TxpKANDACE Norris - 09/01/2023 9:53 AM EDT I left a detailed vm for Mr Gonzales. 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 Phone number provided Roro Pollard RN documented in this encounterAdams County Hospital05-30-2024 History of Present illness Narrative* Ronen Eldridge MD - 08/28/2023 4:00 PM EDT [facility] [place] [facility] Transplant Evaluation CC: Consultation for Kidney/Pancreas transplant evaluation. Referred by: DR. Vivek Diaz- Kidney [address] [facility] [address] I will communicate with the referring provider [...] devices. 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 7/day. Zn Vyieowh-Jkthkanxyhs-Ikb (AMERIGEL) gel Apply 1 application to affected [...] No Pre-transplant testing: Cardiac: STRESS TEST 05/2023 [facility] ECHOCARDIOGRAM 07/02/2023 Interpretation/Summary Normal LV size [...] and walks daily, denies any history of LA, strokes, peripheral arterial disease, DVTs or PEs, [...] letter. Ronen Eldridge MD documented in this encounterAdams County Hospital05-30-2024 Instructions* Patient Instructions* Roro Pollard RN [...] will be scheduled for you at a [facility] facility: CARDIAC: Nuclear stress test CANCER SCREENING: ADDITIONAL CONSULTS Imaging Studies: Miscellaneous Items: labs Outside test results should be faxed to [phone]. Please review the kidney transplant educational materials on line at [email or web address] Sign-in: Kidney To check on your status of your evaluation, please contact your coordinator, Roro Pollard RN [phone]. Roro Pollard RN Kidney/Pancreas Pre-Driver Education Road Instructor [facility] documented in this encounterAdams County Hospital05-30-2024 Instructions* Patient Instructions* Virgen Stroud RD [...] </= 800-1000 mg daily documented in this encounterAdams County Hospital05-30-2024 History of Present illness Narrative* Virgen [...] a very pleasant 43 yo male from [place]. We discussed his current diet, he is [...] 2023 TIME: 12:50 PM documented in this encounterAdams County Hospital05-30-2024 History of Present illness Narrative* Manju [...] PATIENT PRESENTS WITH AN IMPLANTABLE OR ATTACHED SENIOR PLANNER: No RADIOLOGY DEPARTMENT: CT; Exam(s) Completed: Abdomen/Pelvis PERIPHERAL IV DATA: Not applicable SIGNED BY: RT Samanta(R) August 28, 2023 11:35 AM documented in this encounterAdams County Hospital05-30-[facility]24 History of Present illness Narrative* Dustin Beard MD - 08/28/2023 11:34 AM EDT [facility] [place] [facility] Transplant Evaluation CC: Consultation for Kidney/Pancreas transplant evaluation. Referred by: DR. Vivek Diaz- Kidney [address] [facility] [id number] I will communicate with the referring provider [...] devices. 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 Ketone Blood Test (Nanotion XTRA B-KETONE) strp Test KETONES as directed. [...] TO AFFECTED AREA FIVE TIMES DAILY Insulin [place], Disposable, (BD ULTRA-FINE CAROL PEN NEEDLE) 32 gauge x 5/32 ndle Use one needle for each dose. 7/day. Zn Kwoilly-Yazfkxcxxcu-Eck (AMERIGEL) gel Apply 1 application to affected [...] No Pre-transplant testing: Cardiac: STRESS TEST 05/2023 [facility] ECHOCARDIOGRAM 07/02/2023 Interpretation/Summary Normal LV size [...] which included preparing to see the patient, [id number] patient care, completing clinical documentation, obtaining and/or reviewing separately obtained history, performing a medically appropriate examination, counseling and educating the pat ient/family/caregiver, ordering medications, tests, or procedures, communicating with other HCPs (not separately reported), independently interpreting results (not separately reported), communicatingresults to the patient/family/caregiver, and care coordination (not separately reported). Dustin Beard documented in this encounterAdams County Hospital05-30-2024 History of Present illness Narrative* Ciarra Catalan, EAR MOLD LABORATORY TECHNICIAN - 08/28/2023 9:25 AM EDT PSYCHOSOCIAL EVALUATION [...] this assessment. Race/Gender: Male White [] Descent [][place] or []North (non-Black) []White: Other [x]White: Not Specified/Unknown U.S[place] Citizen: Yes IDENTIFYING INFORMATION/LIVING SITUATION Laurie Gonzales resides at: [address] [place] [address]. This home is about 1hr & 23min [...] has a drivers license and a vehicle. [place] - Age 18, is reported to be [...] LIVE 2.5 OR MORE HOURS AWAY FROM [facility]: Do you have the financial means [...] least 3yrs. Do you have any moral, methodist, or ethical views against transplants or blood [...] to get rid of a hangover (eye frame operator)? N/A LEGAL ENCOUNTERS Currently on probation or [...] Laurie Gonzales was born and raised in [place]. Pt moved to [place] about 18yrs ago. 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 Pt has been with his employer for 9yrs.. Paid Status for Recovery: Pt reports he has both short and long disability via his employer. Pt stated there will not be any financial concerns during his recovery period. HEALTH INSURANCE/FINANCIAL Medical Insurance: [facility] Medicaid SW encouraged pt to stay on [...] commitment needs to be verified. Contact Number: [phone] Health Status and Availability of Caregiver: Ira is reported to be in good health and she 38yrs old. / Pt stated Ira is a RN and she would take time off in order to assist with support. Zulay lives about 20min away from pt's home. Valid Liberal Arts Dean's License/Working Vehicle: Yes / Yes Caregiver Substance Use: Per pt, no. Caregiver Mental Health: Per pt, no. Secondary Caregiver: Page (pt's mother) - Page's commitment needs to be verified. Contact Number: [phone] Health Status and Availability: Pt stated Page has tremors, otherwise she is in good health. / Pt stated Page is retired and available whenever needed to assist with support. Valid Liberal Arts Dean's License/Working Vehicle: Yes / Yes Caregiver Substance [...] verified. Body Image/Scar: No IMPRESSIONS/RECOMMENDATIONS Transplant social work faculty member spoke with Laurie Gonzales via telephone. At [...] discussed the need to have a caregiver full time staff interpreter for 2 weeks post transplant. Laurie Gonzales [...] the phone number of the transplant social work faculty member to address future concerns. JUSTIN Andrews-S Transplant Upholstery Technician documented in this encounterAdams County Hospital05-30-[facility]24 History of Present illness Narrative* Patrice [...] Kidney- Pancreas Allocation Policy -Directions to access [facility]'s data through the [facility] website. -Informed Consent for Transplant Program Participation patient education packet -National Kidney Registry pamphlet -Covid-19 Vaccination for Transplant Candidates Method of Instruction: Individual instruction Written instruction/Handouts Verbal instruction Computer Patient/Family Response: Patient and family member asked appropriate questions, which were answeredsatisfactorily. Follow-Up Plan: Contact information given. Referral/Recommendation: None AGUEDA Valladares RN Pre-Driver Education Road Instructor documented in this encounterAdams County Hospital05-23-2024 Telephone encounter Note * Telephone Encounter - Floyd Wagner RN - 08/21/2023 1:45 PM EDT Unsuccessful attempt to contact Daniel. CONDE. Pt needs to complete education class before 08/27. Will reschedule education for Friday for 8am. Floyd Wagner RN [facility]05-[facility] Miscellaneous Notes* Telephone Encounter - Floyd Vivar RN - 08/21/2023 1:45 PM EDT Unsuccessful attempt to contact Daniel. CONDE. Pt needs to complete education class before 08/27. Will reschedule education for Friday for 8am. Floyd Wagner, RN documented in this encounterAdams County Hospital05-16-2024 Telephone encounter Note * Telephone Encounter - Cori Elas - 08/14/2023 11:56 AM EDT Spoke with patient to confirm scheduled kidney transplant evaluation for next week. Did they receive their schedule? Yes Remind the patient to sign up for MyChart if they have not already - Yes Genet Persaud [facility] Work Phone: [phone] Miscellaneous Notes* Telephone Encounter - CoriGenetElsa - 08/14/2023 11:56 AM EDT Spoke with patient to confirm scheduled kidney transplant evaluation for next week. Did they receive their schedule? Yes Remind the patient to sign up for MyChart if they have not already - Yes Genet Persaud documented in this encounterAdams County Hospital05-03-2024 Procedure [facility]05-03-2024 Discharge summary Author Caleb Vargas [facility] August 01, 2023 11:27am Note Date/Time August 01, 2023 7:33am [facility] Medical Records Department [facility] [place] [address] Instructions for Home/Discharge Instructions 08/01/23 0732 MR#: [id number] Acct: [id number] Name: LAURIE GONZALES Rep #:[id number] : 1980 42 From: Caleb Vargas MD [...] Up With: Caleb Vargas MD When: Call [phone] to make an appointment for suture removal [...] 6RF Rx Instructions: 3x/day (DME) Dexcom G6 Associate Of Science In Nursing Misc See Rx Instructions .Route Qty: 1 [...] CC: Dr. Kristal Sullivan MD ~ Signed [facility] Work Phone: 1(701) 893-928705-03-2024 History and physical note Author [facility] August 01, 2023 7:32am Note Date/Time August 01, 2023 7:32am [facility] Medical Records Department [address] [place] [address] History & Physical Exam 08/01/23 0732 MR#: [id number] Acct: [id number] Name: LAURIE GONZALES Rep #:[id number] : 1980 42 From: Caleb Vargas MD PCP: Dr. Kristal Sullivan MD Status:REG S [facility] Location: [place] [address] History and Physical Date of Admission: 08/01/23 Visit Reasons: PD CATH Chief Complaint: PD cath Phlebotomy Technician Required: No Is patient in pain?: No Allergies No Known Allergies Allergy (Verified 07/30/23 14:23) Medications blood sugar diagnostic (FreeStyle Lite Strips) #100 ea 10/08/21 [Rx Confirmed 07/30/23] blood-glucose meter,continuous (Dexcom G6 Associate Of Science In Nursing) #1 ea 10/08/21 [Rx Confirmed 07/30/23] lancing device with lancets kit (Shrink Nanotechnologies DelLaserLeap Plus Lancing Device kit) #100 ea 11/26/21 [...] The patient was recently hospitalized at the [facility] June 30 through July 03, 2023 with [...] Sullivan MD; Dr. Caleb Vargas MD~ Signed [facility] Work Phone: 1(696) 687-661305-02-2024 History of Present illness Narrative* Cecilia Rodriguez, RN - 07/31/2023 2:48 PM EDT Kidney PreTransplant radiology therapist Referring physician:Vivek Diaz Referral intake:see phone encounter dated: 07-29-23 CT abd/pel:Needs ordered ECHO/EF:Date 07-02-23/ % Kidney Disease Cause: DM/HTN (no biopsy) Different from intake: C peptide <0.2 ( 11-17-14) eGFR 13 ( 07-23-23) its under scanned documents same date documented in this encounterAdams County Hospital04-30-2024 Telephone encounter Note * Telephone Encounter - Concha Araiza Tech - 07/29/2023 1:21 PM EDT Called patient without success for kidney transplant referral. Detailed voicemail message was left for patient to call our office back to get started with the intake process. [facility]04-30-[facility] Miscellaneous Notes* Telephone Encounter - Concha Araiza Tech - 07/29/2023 1:21 PM EDT Called patient without success for kidney transplant referral. Detailed voicemail message was left for patient to call our office back to get started with the intake process. documented in this encounterAdams County Hospital04-03-2024 Progress note Author Nelly Gross [facility] July 02, 2023 3:33pm Note Date/Time July 02, 2023 1:39 pm [facility] Medical Records Department [address] [place] [address] Progress Note 07/02/23 1338 MR#: [id number] Acct: [id number] Name: LAURIE GONZALES Rep #:[id number] : 1980 42 From: Nelly Gross MD [...] 77.8 H, Lymph % (Auto) 11.7 L, [place] % (Auto) 8.3, Eos % (Auto) 1.3, [...] Clarity Clear, Urine pH 6.0, Ur Specific [place] 1.010, Urine Protein 100 H, Urine Glucose [...] 72.9 H, Lymph % (Auto) 14.4 L, [place] % (Auto) 8.6, Eos % (Auto) 2.9, [...] on heparin Charges/Coding Visit Charges Inpatient E&M: 10771 Subs Hosp L2 07/02/23 1533 <Electronically signed by Nelly Gross MD> Nelly Gross MD Cosigner Signature (if applicable): CC: ~ Signed [facility] Work Phone: [phone] 155-175904-03-2024 Consult note Author Roberta Kapadia [facility] July 02, 2023 2:26pm Note Date/Time July 02, 2023 2:26 pm [facility] Medical Records Department [address] [place] [address] Consultation - Nephrology 07/02/23 1420 MR#: [id number] Acct: [id number] Name: LAURIE GONZALES Rep #:[id number] : 1980 42 From: Roberta riley MD [...] first time he has been seen by brine plant operator was last month, there was Dr. Diaz. [...] Electrolytes are fine, hehas no significant acidosis. [facility] Medical History Abscess Charcot foot due to diabetes mellitus Diabetes mellitus type 1 Insulin pump titration Obesity Presence of insulin pump Type 1 diabetes mellitus Home Medications blood sugar diagnostic (FreeStyle Lite Strips) #100 ea 10/08/21 [Rx Last Taken Unknown] blood-glucose meter,continuous (Dexcom G6 Associate Of Science In Nursing) #1 ea 10/08/21 [Rx Last Taken Unknown] lancing device with lancets kit (Exercise.comuch Delica Plus Lancing Device kit) #100 ea [...] Clarity Clear, Urine pH 6.0, Ur Specific [place] 1.010, Urine Protein 100 H, Urine Glucose [...] 72.9 H, Lymph % (Auto) 14.4 L, [place] % (Auto) 8.6, Eos % (Auto) 2.9, [...] Diaz MD; Dr. Louis Koehler MD~ Signed [facility] Work Phone: [phone] 799-202504-02-2024 History and physical note Author Louis Koehler [facility] July 01, 2023 6:30pm Note Date/Time July 01, 2023 6:28 pm [facility] Medical Records Department [address] [place] [address] H&P Exam - Hospitalist 07/01/23 1803 MR#: [id number] Acct: [id number] Name: LAURIE GONZALES Rep #:[id number] : 1980 42 From: Louis Ricketts PCP: [...] Last Taken Unknown] blood-glucose meter,continuous (Dexcom G6 Associate Of Science In Nursing) #1 ea 10/08/21 [Rx Last Taken Unknown] lancing device with lancets kit (Biosystem Development Plus Lancing Device kit) #100 ea 11/26/21 [...] 77.8 H, Lymph % (Auto) 11.7 L, [place] % (Auto) 8.3, Eos % (Auto) 1.3, [...] urinary bladder. Kidneys and bladder ultrasound ordered. Soda Drier Feeder consulted 3. Type 1 diabetes mellitus with history of diabetic retinopathy: From medical records since patient follows studio camera operator eKndra Pierce. On insulin pump. If insulin pump [...] Patient does not have dilated power of mergers and acquisitions attorney [facility] after discussion of benefits/risks procedures involved with full code, DNR CC arrest and DNR CC, the patient opted for full code. Patient does want artificial life support including intubation, tube feed, ventilator and/chest compression, central venous catheter, vasopressor and DC shock if needed Total time spent in [id number] encounter in discussion of advanced directive 17 minutes. Laboratory Results 07/01/23 13:14: WBC 10.9, RBC 3.64 L, Hgb 9.9 L, Hct 30.0 L, MCV 82.4, MCH 27.2,MCHC 33.0, RDW Std Deviation 40.4, RDW Coeff of Marcella 13.4, Plt Count 329, MPV 9.3, Immature Gran % (Auto) 0.300, Neut % (Auto) 77.8 H, Lymph % (Auto) 11.7 L, [place] % (Auto) 8.3, Eos % (Auto) 1.3, [...] 13:41 EDT Reading Location ID and State: [address] [place] [address] , Service support , Charges/Coding Visit Charges Inpatient E&M: 98989 Init Hosp L3 Procedures Hospitalists Procedures: 63597 Advncd Care Plan 30 Min 07/01/23 1830 <Electronically signed by Louis Koehler MD> Cosigner Signature (if applicable): CC: Dr. Kristal Sullivan MD; Dr. Louis Koehler MD~ Signed [facility] Work Phone: 1(987) 947-713104-02-2024 Discharge summary Author Laurie Elizalde [facility] July 01, 2023 4:50pm Note Date/Time July 01, 2023 1:31 pm [facility] Medical Records Department [address] [place] [address] Emergency Department Summary 07/01/23 MR#: [id number] Acct: [id number] Name: LAURIE GONZALES Rep #:[id number] : 1980 42 From: Laurie Thrasher PCP: [...] no history of heart disease or CHF. [facility] Medical History Abscess Charcot foot due to diabetes mellitus Diabetes mellitus type 1 Insulin pump titration Obesity Presence of insulin pump Type 1 diabetes mellitus Home Medications blood sugar diagnostic (FreeStyle Lite Strips) #100 ea 10/08/21 [Rx Last Taken Unknown] blood-glucose meter,continuous (Dexcom G6 Associate Of Science In Nursing) #1 ea 10/08/21 [Rx Last Taken Unknown] lancing device with lancets kit (Shrink [employer] Delica Plus Lancing Device kit) #100 ea [...] sinus rhythm. I spoke with the patient's brine plant operator. History & Record Review Discussion w/independent historian: [...] 77.8 H Lymph % (Auto) 11.7 L [place] % (Auto) 8.3 Eos % (Auto) 1.3 [...] 13:41 EDT Reading Location ID and State: [facility] / [place] , Service support , EKG Initial EKG: Attestation: I personally reviewed and interpreted this EKG as follows: Comments: Normal sinus rhythm ventricular rate of 88 bpm Management Discussion w/another healthcare provider: Hospitalist (Dr. Koehler) and Meat Stuffer(Nephrology electronic assembler) Discharge Plan Dx/Rx/DC Orders Clinical Impression: DM type 1 (diabetes mellitus, type 1), Obesity, Hypertension, CKD (chronic kidney disease), Volume overload Disposition Disposition: Acute Care Hospital [facility] What to do if you have Problems For any increased pain, shortness of breath, bleeding, nausea or vomiting, chestpain, or any unexpected problems, contact your Primary Care Provider. Call [facility] ([phone]) or report to the closest Emergency Room. Call 911 if necessary. 07/01/23 1650 <Electronically signed by Laurie Elizalde DO> Cosigner Signature (if applicable): CC: Dr. Kristal Sullivan MD ~ Signed [facility] Work Phone: 1(226) 350-731704-02-2024 Discharge summary Author Laurie Elizalde [facility] July 01, 2023 4:50pm Note Date/Time July 01, 2023 1:31 pm [facility] Medical Records Department [address] [place] [address] Emergency Department Summary 07/01/23 MR#: [id number] Acct: [id number] Name: LAURIE GONZALES Rep #:[id number] : 1980 42 From: Laurie Thrasher PCP: [...] no history of heart disease or CHF. [facility] Medical History Abscess Charcot foot due to diabetes mellitus Diabetes mellitus type 1 Insulin pump titration Obesity Presence of insulin pump Type 1 diabetes mellitus Home Medications blood sugar diagnostic (FreeStyle Lite Strips) #100 ea 10/08/21 [Rx Last Taken Unknown] blood-glucose meter,continuous (Dexcom G6 Associate Of Science In Nursing) #1 ea 10/08/21 [Rx Last Taken Unknown] lancing device with lancets kit (Exercise.comuch Delica Plus Lancing Device kit) #100 ea [...] sinus rhythm. I spoke with the patient's brine plant operator. History & Record Review Discussion w/independent historian: [...] 77.8 H Lymph % (Auto) 11.7 L [place] % (Auto) 8.3 Eos % (Auto) 1.3 [...] w/another healthcare provider: Hospitalist (Dr. Koehler) and Meat Stuffer(Nephrology electronic assembler) Discharge Plan Dx/Rx/DC Orders Clinical Impression: DM type 1 (diabetes mellitus, type 1), Obesity, Hypertension, CKD (chronic kidney disease), Volume overload Disposition Disposition: Acute Care Hospital [facility] What to do if you have Problems For any increased pain, shortness of breath, bleeding, nausea or vomiting, chestpain, or any unexpected problems, contact your Primary Care Provider. Call [facility] ([phone]) or report to the closest Emergency Room. Call 911 if necessary. 07/01/23 1650 <Electronically signed by Laurie Elizalde DO> Cosigner Signature (if applicable): CC: Dr. Kristal Sullivan MD ~ Signed [facility] Work Phone: [phone]) 767-661204-04-2023 Instructions* Patient Instructions* Yas Murray APRN.REAL ESTATE PROCESSOR - 07/02/2022 12:34 PM EDT Take lisinopril every day. Take it today as soon as you can, your blood pressure is running high Stick with your diabetic diet and remain active, aim for 10,000 steps per day. Avoid fast foods documented in this encounterAdams County Hospital04-04-2023 History of Present illness Narrative* Yas [...] TO AFFECTED AREA FIVE TIMES DAILY Insulin [place], Disposable, (BD ULTRA-FINE CAROL PEN NEEDLE) 32 gauge x 32 ndle Use one needle for each dose. 7/day. lancets (FREESTYLE LANCETS) 28 gauge misc Test blood sugar four times daily 250.00 Zn Qvuyusp-Deafrepbhsy-Enu (AMERIGEL) gel Apply 1 application to affected [...] increased walkingdaily. Report low blood sugar to studio camera operator when he sees her on Friday. Will fax note to Dr Ko. 1 month recheck BP and weight loss. Yas Murray APRN.BELLO Medical Decision Making: Problems: Low: Stable chronic illness Moderate: 1+ chronic illnesses with change Risk: Moderate: Drug management Medical Decision Making Level: 4 - Moderate documented in this encounterAdams County Hospital03-03-2023 History of Present illness Narrative* Kristal [...] hypofunction Pain in joint, lower leg 03/13/2006 Denton Schlatter Palpitations Proteinuria Type I (juvenile type) [...] 2 % ointment alcohol swabs padm Insulin [place], Disposable, (BD ULTRA-FINE CAROL PEN NEEDLE) 32 gauge x 5/32 ndle Zn Mzsicym-Iyiwdxxttss-Xfg (AMERIGEL) gel lancets (FREESTYLE LANCETS) 28 gauge [...] <130/80 Kristal Sullivan MD documented in this encounterAdams County Hospital01-31-2023 Miscellaneous Notes* Telephone Encounter - Minnie [...] are elevated, this could be from the jail effects of diabetes. We have to keep monitoring them. Regards, Kristal Sullivan MD documented in this encounterAdams County Hospital01-31-2023 Miscellaneous Notes* Telephone Encounter - Minnie [...] Regards, Kristal Sullivan MD documented in this encounterAdams County Hospital01-27-2023 Miscellaneous Notes* Telephone Encounter - Tayla [...] the Adipex order. Patient is currently at [facility]. Please review and advise, Kitty Fang RN documented in this encounterAdams County Hospital01-27-2023 History of Present illness Narrative* Kristal [...] sob, and or edema. Exercise: Recently started [employer] program. Planning on doing it 3 times [...] 2 % ointment alcohol swabs padm Insulin [place], Disposable, (BD ULTRA-FINE CAROL PEN NEEDLE) 32 gauge x 5/32 ndle Zn Okwsyop-Ncdytezzacr-Zxe (AMERIGEL) gel lancets (FREESTYLE LANCETS) 28 gauge [...] request of records from Dr. Camilo his studio camera operator - HEMOGLOBIN A1C (POC) - COMP [...] TABLET Kristal Sullivan MD documented in this encounterAdams County Hospital11-06-2020 History of Present illness Narrative* Mirella [...] Freestyle Cielo device and was notified of rope silica machine operator recommendations to remove device during x-ray. Due to cost pt declined and device was shielded during exam with a lead shield. RADIOLOGY DEPARTMENT: General X-ray: Exam(s) Completed: Lower Extremity X- Ray(s): Foot, Right and Wt. Bearing: PERIPHERAL IV DATA: Not applicable SIGNED BY: RT Sana February 04, 2020 3:24 PM documented in this encounterAdams [facility] HospitalCon[facility] note Author Siva Drew [facility] Note Date/Time July 20, 2024 4:5 5pm [facility] Medical Records Department [address] [place] [address] Anesthesia Postop Eval I 07/20/241653 MR#: [id number] Acct: [id number] Name: LAURIE GONZALES Dominick Rep #:[id number] : 1980 43 From: Siva Drew CRNA PCP: Dr. Kristal Sullivan MD Status:REG S DC Y Race: C Location: [place] [address] Anesthesia: Postop Eval I Current Vital Signs [...] CRNA Cosigner Signature: Date CC: ~ Signed [facility] Work Phone: Consult note Author Ira Singh [facility] Note Date/Time August 11, 2024 3:16p m [facility] Medical Records Department [address] [facility] [place] [address] Counseling Note - Pharmacy 08/11/24 1516 MR#: [id number] Acct: [id number] Name: LAURIE GONZALES Rep #:[id number] : 1980 44 From: Ira Singh PCP: Dr. Kristal Sullivan MD Status:ADM I NO Y Location: [place] [address] [facility] has performed discharge medication reconciliation for this patient. The patient's discharge medication list was reviewed for discrepancies and discrepancies were resolved. Medications at Discharge Home Medications blood sugar diagnostic (FreeStyle Lite Strips) #100 ea 10/08/21 lancing device with lancets kit (Biosystem Development Plus Lancing Device kit) #100 ea 11/26/21 [...] #50 ea 03/30/24 blood-glucose meter,continuous (Dexcom G6 Associate Of Science In Nursing) #1 ea 04/01/24 insulin pump cart,auto,BT,G6/7 (Omnipod [...] Signature (if applicable): Date CC: ~ Signed [facility] Work Phone: Consult note Author Jakob Patricia [facility] Note Date/Time August 31, 2024 11:04 am [facility] Medical Records Department [address] [place] [address] Pre-Anesthesia Evaluation 08/31/24 1056 MR#: [id number] Acct: [id number] Name: LAURIE GONZALES Rep #:[id number] : 1980 44 From: Jakob Patricia PCP: Dr. Kristal Sullivan MD Status:REG S DC Y Race: C Location: [place] [address] ASA Classification* ASA Classification ASA Classification: 3 [...] Procedure(s): EGD Anesthesia History Anesthesia History - rat breeder: Anesthesia History - rat breeder Hx Hospitalization Yes: 07/2024 BLOOD INFECTION/ 08/30/24 10:31 [facility] Any Problems With Anesthesia No 08/30/24 10:31 [...] take am of surgery PONV PONV - rat breeder: PONV - rat breeder Female No 08/30/24 10:31 HX of Motion [...] 08/31/24 10:38 Respiratory Assessment Respiratory Assessment - rat breeder: Respiratory Tract Infection Hx - rat breeder Hx Respiratory Tract Infection No 08/30/24 10:31 STOP Sleep Apnea STOP Sleep Apnea - rat breeder: STOP Sleep Apnea - rat breeder Hx Hypertension Yes: CONTROLLED WITH MED 08/30/24 [...] Tobacco Use History Tobacco Use History - rat breeder: Tobacco Use History - rat breeder Tobacco Use Non-smoker 06/30/24 15:56 Smoking Status Never smoker 08/30/24 10:31 Hx Tobacco Use No 08/30/24 10:31 Years Smoking Packs Smoked per Day Smoking Cessation Date was within the last 15 years Hx Smoking Cessation Date Hx Smoking Cessation Counseling Hematologic Medial History Hematologic Hx - rat breeder: Hematologic 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 Hx of Blood Transfusion No 08/30/24 10:31 [...] confused, unrespo /Reproduction History /Reproductive History - rat breeder: /Reproductive Hx- rat breeder Hx Now No 08/30/24 10:31 Gestational Age [...] Rx 5/32 (BD Ultra-Fine Carol Pen Needle) blood-glucose,postal sorting officer,cont #1 ea 04/01/24 Unknown Rx (Dexcom G6 Associate Of Science In Nursing) insulin pump cart,auto,BT,G6/7 #30 ea 04/01/24 Unknown [...] Date Shaun Thompson MD CC: ~ Signed [facility] Work Phone: Consult note Author Jakob Patricia [facility] Note Date/Time August 31, 2024 11:32 am [facility] Medical Records Department [address] [place] [address] Anesthesia Postop Eval I 08/31/24 1131 MR#: [id number] Acct: [id number] Name: LAURIE GONZALES Rep #:[id number] : 1980 44 From: Jakob Patricia PCP: Dr. Kristal Sullivan MD Status:REG S DC Y Race: C Location: [place] [address] Anesthesia: Postop Eval I Current Vital Signs [...] Jakob Rodriguez Signature: Date CC: ~ Signed [facility] Work Phone: Discharge summary [facility] July 03, 2023 12:52pm Note Date/Time July 03, 2023 12:5 2pm [facility] Medical Records Department [address] [place] [address] Instructions for Home/Discharge Instructions 07/03/23 1251 MR#: [id number] Acct: [id number] Name: LAURIE GONZALES Rep #:[id number] : 1980 42 From: Nelly Gross MD [...] 6RF Rx Instructions: 3x/day (DME) Dexcom G6 Associate Of Science In Nursing Misc See Rx Instructions .Route Qty: 1 [...] 10 days (DME) lancing device with lancets [TB BiosciencesTouch Delica Plus Lanc Dev] Kit See Rx [...] MD; Dr. Louis Koehler MD ~ Signed [facility] Work Phone: Discharge summary Author [facility] July 03, 2023 1:51pm Note Date/Time July 03, 2023 12:5 2pm [facility] Medical Records Department [address] [place] [address] Discharge Summary 07/03/23 1252 MR#: [id number] Acct: [id number] Name: LAURIE GONZALES Rep #:[id number] : 1980 42 From: Nelly Gross MD PCP: Dr. Kristal Sullivan MD Status:ADM I N Location: ICU [place] [address] Providers Date of Admission: 07/01/23 Date of [...] #100 ea 10/08/21 blood-glucose meter,continuous (Dexcom G6 Associate Of Science In Nursing) #1 ea 10/08/21 lancing device with lancets kit (Sh[employer] DelLaserLeap Plus Lancing Device kit) #100 ea 11/26/21 [...] % (Auto) 54.4, Lymph % (Auto) 27.4, [place]% (Auto) 11.9 H, Eos % (Auto) 5.0, [...] 6RF Rx Instructions: 3x/day (DME) Dexcom G6 Associate Of Science In Nursing Misc See Rx Instructions .Route Qty: 1 [...] 10 days (DME) lancing device with lancets [Exercise.comuch Delica Plus Lanc Dev] Kit See Rx [...] Self Care Charges/Coding Visit Charges Inpatient E&M: 48131 Disch Hosp >30min 07/03/23 1351 <Electronically signed by Nelly Gross MD> Cosigner Signature (if applicable): CC: Dr. Kristal Sullivan MD; Dr. Nelly Gross MD~ Signed [facility] Work Phone: Discharge summary Author Garrison Valadez [facility] Note Date/Time July 20, 2024 4:4 5pm [facility] Medical Records Department [address] [place] [address] Instructions for Home/Discharge Instructions 07/20/24 1640 MR#: [id number] Acct: [id number] Name: LAURIE GONZALES Rep #:[id number] : 1980 43 From: Garrison Valadez MD [...] Care Provider: Kristal Sullivan Instructions Print Language: Cymro Discharge Orders/Prescriptions Prescriptions: New oxycodone 5 mg [...] 1RF Rx Instructions: tid (DME) Dexcom G6 Associate Of Science In Nursing Misc See Rx Instructions .Route Qty: 1 [...] CC: Dr. Kristal Sullivan MD ~ Signed [facility] Work Phone: Discharge summary Author Louis Koehler [facility] Note Date/Time August 11, 2024 2:53p m [facility] Medical Records Department [address] [place] [address] Discharge Summary 08/11/24 5560 MR#: [id number] Acct: [id number] Name: LAURIE GONZALES Rep #:[id number] : 1980 44 From: Louis Ricketts PCP: Dr. Kristal Sullivan MD Status:ADM I NO Location: [place] [address] Providers Date of Admission: 08/10/24 Date of [...] front sharpin nature along with nausea. Last LA in December 2023 that required stent in LAD. By the time patient came to ED chest pain had subsided. Denies family history of LA at young age 3. ACS ruled out. [...] block, RBBB and LAFB. ED physiciandiscussed with naturopathic physician Dr. Lio Cross and he reviewed his previous cardiac cath in December 2023 which showed small vessel disease not amenable to intervention. 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 Discussed with the naturopathic physician Dr. Garcia who reported that stress and he said patient cango home. No acute LA. Patient is being discharged. 2. Essential hypertension: [...] On Friday. Patient is being dialyzed today. Soda Drier Feeder consulted. On sevelamer 5. History of chronic [...] ea 10/08/21 lancing device with lancets kit (Biosystem Development Plus Lancing Device kit) #100 ea 11/26/21 [...] #50 ea 03/30/24 blood-glucose meter,continuous (Dexcom G6 Associate Of Science In Nursing) #1 ea 04/01/24 insulin pump cart,auto,BT,G6/7 (Omnipod [...] had 1 stent in LAD during last LA in December 2023 Physical exam: General: Alert, [...] (Auto) 77.5 H, Lymph % (Auto) 12.1L, [place] % (Auto) 8.3, Eos % (Auto) 1.0, [...] (Auto) 75.1 H, Lymph % (Auto) 13.4L, [place] % (Auto) 9.6, Eos % (Auto) 0.8, [...] IMPRESSION: No acute cardiopulmonary abnormality. Reading Location: [id number] Chest CTA 08/10/24 21:35 IMPRESSION: No evidence [...] 1RF Rx Instructions: tid (DME) Dexcom G6 Associate Of Science In Nursing Misc See Rx Instructions .Route Qty: 1 [...] Self Care Charges/Coding Visit Charges Inpatient E&M: 36662 Disch Hosp >30min 08/11/24 1453 <Electronically signed by Louis Koehler MD> Cosigner Signature (if applicable): CC: Dr. Kristal Sullivan MD; Dr. Daisy Diaz MD; Dr. Louis Koehler MD~ Signed [facility] Work Phone: Discharge summary Author Laurie Cheemaehne [facility] Note Date/Time August 23, 2024 8:18a m [facility] Medical Records Department [address] [place] [address] Emergency Department Summary 08/23/24 MR#: [id number] Acct: [id number] Name: LAURIE GONZALES Rep #:[id number] : 1980 44 From: Laurie Thrasher PCP: [...] easily flops onto the bed without pain. [facility] Medical History Elevated troponin Insulin dependent diabetes [...] n Rx (BD Ultra-Fine Carol Pen Needle) blood-glucose,postal sorting officer,cont #1 ea 04/01/24 Unknown Rx (Dexcom G6 Associate Of Science In Nursing) insulin pump cart,auto,BT,G6/7 #30 ea 04/01/24 Unknown [...] were ordered. I am told by nursing division supervisor that we do not have dialysis coverage on Friday. He is due for dialysis tomorrow. He will need to be transferred. Family would like me to try [facility] as they work in [place] and would be easier for them. Unfortunately they do not have any bed availability. I spoke with the patient and his family regarding other options that [facility] gave me including [facility] versus [facility]. Theywould like me to try [facility]. I spoke with [facility] and the patient has been accepted. History [...] 93.6 H Lymph % (Auto) 1.4 L [place] % (Auto) 3.2 Eos % (Auto) 0.0 [...] Clarity Clear Urine pH 7.0 Ur Specific [place] 1.010 Urine Protein 500 H Urine Glucose [...] No evidence of acute disease. Reading Location: [facility] EKG Initial EKG: Attestation: I personally reviewed and interpreted this EKG as follows: Comments: Sinus tachycardia ventricular rate of 126 bpm Management Discussion w/another healthcare provider: Meat Stuffer (Dr Mejia ([facility])) Discharge Plan Triage Chief Complaint: Fever [...] (Reason: nausea/vomiting) (DME) lancing device with lancets [TB BiosciencesTouch Delica Plus Lanc Dev] Kit See Rx [...] 1RF Rx Instructions: tid (DME) Dexcom G6 Associate Of Science In Nursing Misc See Rx Instructions .Route Qty: 1 [...] MD [Primary Care Provider] - Print Language: Cymro Disposition Disposition: Acute Care Hospital Discharge Location: [facility] What to do if you have Problems For any increased pain, shortness of breath, bleeding, nausea or vomiting, chestpain, or any unexpected problems, contact your Primary Care Provider. Call [facility] ([phone]) or report to the closest Emergency Room. Call 911 if necessary. 08/23/24 0818 <Electronically signed by Laurie Elizalde DO> Cosigner Signature (if applicable): CC: Dr. Kristal Sullivan MD ~ Signed [facility] Work Phone: Evaluation + Plan note No data available for this section [facility] Evaluation note* Diagnosis Onset Date Resolution Status CKD (chronic kidney disease) chronic Diabetes chronic Hypertension chronic Obesity [facility] Work Phone: Evaluation note* Diagnosis Onset Date Resolution Status Diabetes chronic Hypertension chronic Microalbuminuria chronic Obesity chronic Vitamin D deficiency [facility] Work Phone: Evaluation note* Diagnosis Type 1 diabetes mellitus with hyperosmolarity without coma (HCC)- Primary Gastroesophageal reflux disease without esophagitis Esophageal reflux Essential hypertension Unspecified essential hypertension Class 1 obesity with serious comorbidity in adult, unspecified BMI, unspecified obesity type [facility] Diagnosis Type 1 diabetes mellitus with hyperosmolarity without coma (HCC) Mixed hyperlipidemia [facility]* Diagnosis Class 1 obesity with serious comorbidity in adult, unspecified BMI, unspecified obesity type- Primary Special screening examination for viral disease Special screening examination for unspecified viral disease Screening for HIV (human immunodeficiency virus) Special screening examination for other specified viral diseases Essential hypertension Unspecified essential hypertension [facility] Diagnosis Class 1 obesity with serious comorbidity in adult, unspecified BMI, unspecified obesity type- Primary Type 1 diabetes mellitus with other specified complication (HCC) Low blood sugar Hypoglycemia, unspecified [facility]* Diagnosis Onset Date Resolution Status Diabetes mellitus type 1 chr onic Hyperlipidemia chronic Hypertension chronic Insulin pump titration chron ic Microalbuminuria chronic Obesity chronic Presence of insulin pump chr onic Stage 4 chronic kidney disease chronic [facility] Work Phone: Evaluation note* Diagnosis Onset [...] 1 chr onic Hypertension chronic Obesity chronic [facility] Work Phone: Evaluation note* Diagnosis Onset [...] chronic Stage 4 chronic kidney disease chronic [facility] Work Phone: Evaluation note* Diagnosis Onset Date Resolution Status Hyperlipidemia chronic Insulin pump titration chron ic Microalbuminuria chronic Presence of insulin pump chr onic Dyspnea on exertion resolved Volume overload resolved [facility] Work Phone: Evaluation note* Diagnosis Pre-transplant evaluation for kidney and pancreas transplant- Primary Other specified pre-operative examination Chronic renal failure, stage 4 (severe) (HCC) [facility] Diagnosis Pre-transplant evaluation for kidney transplant- Primary Other specified pre-operative examination documented in this encounter [facility] note* Diagnosis Onset Date Resolution Status Hyperlipidemia chronic Insulin pump titration chron ic Microalbuminuria chronic Presence of insulin pump chr onic CKD (chronic kidney disease) chronic Dyspnea on exertion resolved Volume overload resolved CKD (chronic kidney disease) [facility] Work Phone: Evaluation note* Diagnosis Pre-transplant evaluation for kidney and pancreas transplant- Primary Other specified pre-operative examination documented [facility]* Diagnosis Pre-transplant evaluation for kidney transplant- Primary Other specified pre-operative examination documented [facility]* Diagnosis Awaiting organ transplant status- Primary documented [facility]* Diagnosis Encounter for other preprocedural examination- Primary CKD (chronic kidney disease) stage 5, GFR less than 15 ml/min ([facility]) Chronic kidney disease, Stage V Pre-transplant evaluation for CKD (chronic kidney disease) Other specified pre-operative examination 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) [facility] Diagnosis Pre-transplant evaluation for kidney transplant- Primary Other specified pre-operative examination documented in this encounter [facility] note* Diagnosis Chronic renal failure, stage 4 (severe) (HCC) Pre-transplant evaluation for kidney and pancreas transplant Other specified pre-operative examination [facility]* Diagnosis ESRD on dialysis (HCC)- Primary End stage renal disease 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) Type I (juvenile type) diabetes mellitus with renal manifestations, not stated as uncontrolled documented [facility] this [facility]* Diagnosis Brittle diabetes (HCC)- Primary Type [...] of right foot [facility]* Diagnosis Brittle diabetes (HCC)- Primary Type [...] other preprocedural examination documented in this encounter [facility] note* Diagnosis Brittle diabetes (HCC)- Primary Type [...] other preprocedural examination documented [facility]* Diagnosis Brittle diabetes (HCC)- Primary Type [...] complication (HCC)- Primary documented in this encounter [facility] note* Diagnosis Brittle diabetes (HCC)- Primary Type [...] (pediatric) Essential (primary) hypertension Unspecified essential hypertension 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 ([facility]) Pruritus Unspecified pruritic disorder Dependence on renal dialysis ([facility]) Renal dialysis status End stage renal disease ([facility]) End stage renal disease documented in this encounter [facility] note* Diagnosis MSSA bacteremia- Primary History of myocardial infarction Vitreous floaters, unspecified laterality History of myocardial infarction Complication associated with dialysis catheter Sepsis due to methicillin susceptible Staphylococcus aureus (MSSA) without acute organ dysfunction ([facility]/HCC) ([facility]) documented in this encounter [facility] note* Diagnosis Brittle diabetes (HCC)- Primary [...] 1 diabetes mellitus with hyperosmolarity without coma ([facility]) Essential hypertension Unspecified essential hypertension Mixed hyperlipidemia Esophageal stricture Stricture and stenosis of esophagus Anemia in stage 5 chronic kidney disease, not on chronic dialysis (HCC) Chronic kidney disease, stage 5 ([facility]) Dependence on renal dialysis Renal dialysis status Screening for depression Encounter for screening examination for other mental health and behavioral disorders Encounter for immunization Need for other specified prophylactic vaccination against single bacterial disease documented in this encounter [facility] note* Diagnosis Brittle diabetes (HCC)- Primary Type [...] specified pre-operative examination [facility] Louis Koehler [facility] July 01, 2023 6:30pm Note Date/Time July 01, 2023 6:28 pm [facility] Medical Records Department [address] [place] [address] H&P Exam - Hospitalist 07/01/23 1803 MR#: [id number] Acct: [id number] Name: LAURIE GONZALES Rep #:[id number] : 1980 42 From: Louis Ricketts PCP: [...] and discussed in detail in assessment plan [facility] Medical History Abscess Charcot foot due to diabetes mellitus Diabetes mellitus type 1 Insulin pump titration Obesity Presence of insulin pump Type 1 diabetes mellitus Home Medications blood sugar diagnostic (FreeStyle Lite Strips) #100 ea 10/08/21 [Rx Last Taken Unknown] blood-glucose meter,continuous (Dexcom G6 Associate Of Science In Nursing) #1 ea 10/08/21 [Rx Last Taken Unknown] lancing device with lancets kit (Biosystem Development Plus Lancing Device kit) #100 ea 11/26/21 [...] 77.8 H, Lymph % (Auto) 11.7 L, [place] % (Auto) 8.3, Eos % (Auto) 1.3, [...] urinary bladder. Kidneys and bladder ultrasound ordered. Soda Drier Feeder consulted 3. 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 On insulin pump. If [...] Patient does not have dilated power of mergers and acquisitions attorney [facility] after discussion of benefits/risks procedures involved with full code, DNR CC arrest and DNR CC, the patient opted for full code. Patient does want artificial life support including intubation, tube feed, ventilator and/chest compression, central venous catheter, vasopressor and DC shock if needed Total time spent in [id number] encounter in discussion of advanced directive 17 minutes. Laboratory Results 07/01/23 13:14: WBC 10.9, RBC 3.64 L, Hgb 9.9 L, Hct 30.0 L, MCV 82.4, MCH 27.2,MCHC 33.0, RDW Std Deviation 40.4, RDW Coeff of Marcella 13.4, Plt Count 329, MPV 9.3, Immature Gran % (Auto) 0.300, Neut % (Auto) 77.8 H, Lymph % (Auto) 11.7 L, [place] % (Auto) 8.3, Eos % (Auto) 1.3, [...] 13:41 EDT Reading Location ID and State: [address] [place] [address] , Service support , Charges/Coding Visit Charges Inpatient E&M: 39273 Init Hosp L3 Procedures Hospitalists Procedures: 84059 Advncd Care Plan 30 Min 07/01/23 1830 <Electronically signed by Louis Koehler MD> Cosigner Signature (if applicable): CC: Dr. Kristal Sullivan MD; Dr. Louis Koehler MD~ Signed [facility] Work Phone: History and physical note Author Bao Friend [facility] Note Date/Time August 31, 2024 11:06 am [facility] Medical Records Department [address] [place] [address] [place] [address] History & Physical Exam 08/31/24 1105 MR#: [id number] Acct: [id number] Name: LAURIE OGNZALES Rep #:[id number] : 1980 44 From: Bao Angulo DO PCP: Dr. Kristal Sullivan MD Status:REG S DC Location: [place] [address] HPI - General General Date of Admission: 08/31/24 Date of Service: 08/31/24 Chief Complaint: dysphagia HPI Narrative LAUREI GONZALES, is a 44 M who presentsChief [...] kit #100 ea 11/26/21 Unkno wn Rx ([employer] DelLaserLeap Plus Lancing Device kit) pen needle, diabetic [...] n Rx (BD Ultra-Fine Carol Pen Needle) blood-glucose,postal sorting officer,cont #1 ea 04/01/24 Unknown Rx (Dexcom G6 Associate Of Science In Nursing) insulin pump cart,auto,BT,G6/7 #30 ea 04/01/24 Unknown [...] approval to hold prior to EGD. Note: [employer] speech recognition outreach and education social worker software was used to create portions of this document. Sound-alike and misspelled words, as well as other outreach and education social worker errors may be contained in the documentation. Patient Instructions: Esophagram EGD 08/31/24 1106 <Electronically signed by Bao Angulo DO> Cosigner Signature (if applicable): CC: Dr. Kristal Sullivan MD; Bao Angulo DO~ Signed [facility] Work Phone: Hospital Discharge instructions No data available for this section [facility] Hospital Discharge instructions* Attachments The following attachments cannot be sent through Care Everywhere. * Hemodialysis (Cymro) * Fever, Adult ED ([facility]) documented in this [facility] No data available for this section [facility] Progress note Author Kalina Payne [facility] Note Date/Time September 07, 2024 1:38 pm [facility] [address] [place] [address] OFFICE VISIT Date of Service: 09/07/24 MR#: [id number] Acct: [id number] Name: LAURIE GONZALES Rep #: [id number] : 1980 Provider: RAVINDER Payne Age/Sex: 44/M [facility] [email or web address] Status: Signed Intake Vital Signs 08/17/24 14:47 [...] 1 Month f/u Chief Complaint: f/u diabetes Phlebotomy Technician Required: No Accompanied by: self Is patient in pain?: No Allergies No Known Allergies Allergy (Verified 09/07/24 13:08) Medications ?Medication ?Instructions ?Recorded ?Confirmed ?Type blood sugar diagnostic (FreeStyle #100 ea 10/08/2101/22 Rx Lite Strips) lancing device with lancets kit #100 ea 11/26/2109/07 Rx (Exercise.comuch Delica Plus Lancing Device kit) pen needle, [...] Rx 5/32 (BD Ultra-Fine Carol Pen Needle) blood-glucose,postal sorting officer,cont #1 ea 04/01/24 09/07/24 Rx (Dexcom G6 Associate Of Science In Nursing) insulin pump cart,auto,BT,G6/7 #30 ea 04/01/24 5 [...] weeks and we will repeat EGD. Note: [employer] speech recognition outreach and education social worker software was used to create portions of this document. Sound-alike and misspelled words, as well as other outreach and education social worker errors may be contained in the documentation. [...] Cosigner Signature: Date (if applicable) CC: ~ [facility] [employer] Work Phone: [employer] for referral (narrative)* Diagnostic Procedure Only (Routine) - Pending Review Specialty Diagnoses / Procedures Referred By Contac t Referred To Contact [facility]LEC[facility] FUNCTIONAL [facility]AGING Diagnoses Encounter for other preprocedural examination Procedures NM CARDIAC PERF STRESS/PHARM MYOCARDIAL SPECT MULTIPLE STUDIES Ronen Eldridge MD [address] [place] [address] Molecular & Functional Imaging [address] [place] [address] Referral ID Status Reason Start Date Expiration Date Visits Requested Visits Authorized [id number] Pending Review Auto-Generat ed Referral 08/28/2023 09/26/[address] [facility] for referral (narrative)* Diagnostic Procedure Only (Routine) - Pending Review Specialty Diagnoses / Procedures Referred By Contac t Referred To Contact MOLECULAR & FUNCTIONAL IMAGING Diagnoses Encounter for other preprocedural examination Procedures NM CARDIAC PERF STRESS/PHARM MYOCARDIAL SPECT MULTIPLE STUDIES Ronen Eldridge MD [address] [id number] Molecular & Functional Imaging [address] [id number] Referral ID Status Reason Start Date Expiration Date Visits Requested Visits Authorized [id number] Pending Review Auto-Genera sharan Referral Patient Cleared - Admin/Chair man/Directo r advise to proceed or did not respond 4 03/11/[address] [facility] for referral (narrative)No reason for [facility] Reason for visit Narrative* Diagnostic Procedure Only (Routine) - Pending Review Specialty Diagnoses / Procedures Referred By Erika rodriguez Referred To Contact MOLECULAR & FUNCTIONAL IMAGING Diagnoses Encounter for other preprocedural examination Procedures NM CARDIAC PERF STRESS/PHARM MYOCARDIAL SPECT MULTIPLE STUDIES Ronen Eldridge MD [address] [place] [address] Molecular & Functional Imaging [address] [place] [address] Referral ID Status Reason Start Date Expiration Date Visits Requested Visits Authorized [id number] Pending Review Auto-Genera sharan Referral Patient Cleared - Admin/Chair man/Directo r advise to proceed or did not respond 4 03/11/[address] [facility] for visit Narrative* Auth/Cert (Routine) Specialty Diagnoses / Procedures Referred By Erika rodriguez Referred To Contact Diagnoses History of myocardial infarction sepsis Procedures . Maria Luz Trujillo MD [address] [address] Phone: tel: fax: [facility] PCU [address] [place] [address] Phone: tel: Referral ID Status Reason Start Date Expiration Date Visits Re quested Visits Authorized [id number] 1 1 [facility] Chief Complaint and Reason for Visit [...] kidney disease) Chief Complaint Admit Date S/P [facility] 01/30February 25, 2024 9:03am 5 M FU, [...] 2024 8:10am Malfunction of arteriovenous dialysis fi [facility] June 18, 2024 11:17am Chief Complaint Admit Date MAPPING FOR PERMANENT DIALYSIS VASCULAR ACCESS March 16, 2024 12:35pm HYPOGLYCEMIC April 20, 2024 1 0:22am Dialysis Access April 23, 2024 8 :10am End stage renal disease June 10, 2024 12:54pm Discuss AV Fistula Dialysis Graft Scan [facility] 2024 11:17am LEFT FOREARM T82.590A July 07, [...] 12:54pm Discuss AV Fistula Dialysis Graft Scan [facility] 2024 11:17am LEFT FOREARM T82.590A July 07, [...] 12:54pm Discuss AV Fistula Dialysis Graft Scan [facility] 2024 11:17am LEFT FOREARM T82.590A July 07, [...] 12:54pm Discuss AV Fistula Dialysis Graft Scan [facility] 2024 11:17am LEFT FOREARM T82.590A July 07, [...] March 28, 2 020 11:08am Power of Access Services Representative No March 28, 2020 11:08am Advance Directive Response Recorded Date/ Time Advance Directives No November 12:01am Living Will No November 02, 2021 5:11pm Power of Access Services Representative No November 02 5:11pm Advance Directive Response Recorded Date/ Time Advance Directives No May 10:41am Living Will No May 13, 024 10:41am Power of Access Services Representative No May 13, 2023 10:41am Advance Directive Response Recorded Date/ Time Advance Directives No May 11:41am Living Will No July 01, 2023 1:19pm Power of Access Services Representative No June 30 1:19pm Advance Directive Response Recorded Date/ Time Advance Directives No May 11:41am Living Will No July 01, 2023 7:29pm Power of Access Services Representative No June 30 7:29pm Advance Directive Response Recorded Date/ Time Advance Directives No May 11:41am Living Will No August 01, 2023 7: 35am Power of Access Services Representative No August 01, 2023 7:35am Advance Directive Response Recorded Date/ Time Living Will No April 20 11:30am Do you have a Healthcare Power of Access Services Representative? No April 20, 2024 11:30am Advance Directives No January 5:03pm Advance Directive Response Recorded Date/ Time Living Will No April 20 11:30am Do you have a Healthcare Power of Access Services Representative? No April 20, 2024 11:30am Living Will No July 07, 2024 7:22am Do you have a Healthcare Power of Access Services Representative? No July 07, 2024 7:22am Advance Directives No July 07 7:22am Advance Directive Response Recorded Date/ Time Living Will No July 16, 2024 2:53pm Do you have a Healthcare Power of Access Services Representative? No July 16, 2024 2:53pm Living Will No April 20 11:30am Do you have a Healthcare Power of Access Services Representative? No April 20, 2024 11:30am Living Will No July 07, 2024 7:22am Do you have a Healthcare Power of Access Services Representative? No July 07, 2024 7:22am Advance Directives No July 07 7:22am Advance Directive Response Recorded Date/ Time Living Will No July 16, 2024 2:53pm Do you have a Healthcare Power of Access Services Representative? No July 16, 2024 2:53pm Do you have a Healthcare Power of Access Services Representative? No August 10, 2024 7:49pm Living Will No April 20 11:30am Do you have a Healthcare Power of Access Services Representative? No April 20, 2024 11:30am Living Will No July 07, 2024 7:22am Do you have a Healthcare Power of Access Services Representative? No July 07, 2024 7:22am Advance Directives No July 07 7:22am Advance Directive Response Recorded Date/ Time Living Will No July 16, 2024 2:53pm Do you have a Healthcare Power of Access Services Representative? No July 16, 2024 2:53pm Do you have a Healthcare Power of Access Services Representative? No August 11, 2024 12:24am Living Will No April 20 11:30am Do you have a Healthcare Power of Access Services Representative? No April 20, 2024 11:30am Living Will No July 07, 2024 7:22am Do you have a Healthcare Power of Access Services Representative? No July 07, 2024 7:22am Advance Directives No July 07 7:22am Advance Directive Response Recorded Date/ Time Living Will No July 16, 2024 2:53pm Do you have a Healthcare Power of Access Services Representative? No July 16, 2024 2:53pm Do you have a Healthcare Power of Access Services Representative? No August 11, 2024 12:24am Do you have a Healthcare Power of Access Services Representative? No August 23, 2024 2:13am Living Will No July 07, 2024 7:22am Do you have a Healthcare Power of Access Services Representative? No July 07, 2024 7:22am Advance Directives No July 07 7:22am Date Activated Date Inactivated Comments 08/23/2024 11:56 AM 08/28/2024 4:27 PM Advance Directive Response Recorded Date/ Time Living Will No July 16, 2024 2:53pm Do you have a Healthcare Power of Access Services Representative? No July 16, 2024 2:53pm Do you have a Healthcare Power of Access Services Representative? No August 11, 2024 12:24am Do you have a Healthcare Power of Access Services Representative? No August 30, 2024 10:31am Do you have a Healthcare Power of Access Services Representative? No August 23, 2024 2:13am Living Will No July 07, 2024 7:22am Do you have a Healthcare Power of Access Services Representative? No July 07, 2024 7:22am Advance Directives No July 07 7:22am Reason for Referral Specialty Diagnoses / Procedures Referred By Erika rodriguez Referred To Contact Kristal Sullivan MD [address] [place] [address] Referral ID Status Reason Start Date Expiration Date V isits Requested Visits Authorized [id number] Pending Review 1 1 Specialty Diagnoses / Procedures Referred By Erika rodriguez Referred To Contact CT IMAGING Diagnoses Chronic renal failure, stage 4 (severe) (HCC) Pre-transplant evaluation for kidney and pancreas transplant Procedures CT ABD/PEL WO IVCON CT ABD & PELVIS W/O CONTRAST Kim Chung PA-C [address] [place] [address] [place] [address] Referral ID Status Reason Start Date Expiration Date Visits Requested Visits Authorized [id number] Pending Review Auto-Generat ed Referral 08/07/2023 08/29/2024 1 1 Referral ID Status Reason Start Date Expiration Date V isits Requested Visits Authorized [id number] Closed Auto-Generated Referral Patient Cleared - INN [...] or prosecute any alcohol or drug abuse patient.[facility] the event this information is protected by the Federal Confidentiality of Alcohol and Drug Abuse Patient Records regulations: The Federal rules restrict any use of the information to criminally investigate or prosecute any alcohol or drug abuse patient.[facility] HospitalIn the event this information is protected by the Federal Confidentiality of Alcohol and Drug Abuse Patient Records regulations: The Federal rules restrict any use of the information to criminally investigate or prosecute any alcohol or drug abuse patient.[facility]In the event this information is protected by the Federal Confidentiality of Alcohol and Drug Abuse Patient Records regulations: The Federal rules restrict any use of the information to criminally investigate or prosecute any alcohol or drug abuse patient.[facility] HospitalIn the event this information is protected by the Federal Confidentiality of Alcohol and Drug Abuse Patient Records regulations: The Federal rules restrict any use of the information to criminally investigate or prosecute any alcohol or drug abuse patient.[facility] HospitalIn the event this information is protected by the Federal Confidentiality of Alcohol and Drug Abuse Patient Records regulations: The Federal rules restrict any use of the information to criminally investigate or prosecute any alcohol or drug abuse patient.[facility] HospitalIn the event this information is protected by the Federal Confidentiality of Alcohol and Drug Abuse Patient Records regulations: The Federal rules restrict any use of the information to criminally investigate or prosecute any alcohol or drug abuse patient.[facility] HospitalIn the event this information is protected by the Federal Confidentiality of Alcohol and Drug Abuse Patient Records regulations: The Federal rules restrict any use of the information to criminally investigate or prosecute any alcohol or drug abuse patient.[facility] HospitalIn the event this information is protected by the Federal Confidentiality of Alcohol and Drug Abuse Patient Records regulations: The Federal rules restrict any use of the information to criminally investigate or prosecute any alcohol or drug abuse patient.[facility] HospitalIn the event this information is protected by the Federal Confidentiality of Alcohol and Drug Abuse Patient Records regulations: The Federal rules restrict any use of the information to criminally investigate or prosecute any alcohol or drug abuse patient.[facility] HospitalIn the event this information is protected by the Federal Confidentiality of Alcohol and Drug Abuse Patient Records regulations: The Federal rules restrict any use of the information to criminally investigate or prosecute any alcohol or drug abuse patient.[facility] HospitalIn the event this information is protected by the Federal Confidentiality of Alcohol and Drug Abuse Patient Records regulations: The Federal rules restrict any use of the information to criminally investigate or prosecute any alcohol or drug abuse patient.[facility] HospitalIn the event this information is protected by the Federal Confidentiality of Alcohol and Drug Abuse Patient Records regulations: The Federal rules restrict any use of the information to criminally investigate or prosecute any alcohol or drug abuse patient.[facility] HospitalIn the event this information is protected by the Federal Confidentiality of Alcohol and Drug Abuse Patient Records regulations: The Federal rules restrict any use of the information to criminally investigate or prosecute any alcohol or drug abuse patient.[facility] HospitalIn the event this information is protected by the Federal Confidentiality of Alcohol and Drug Abuse Patient Records regulations: The Federal rules restrict any use of the information to criminally investigate or prosecute any alcohol or drug abuse patient.[facility] HospitalIn the event this information is protected by the Federal Confidentiality of Alcohol and Drug Abuse Patient Records regulations: The Federal rules restrict any use of the information to criminally investigate or prosecute any alcohol or drug abuse patient.[facility] HospitalIn the event this information is protected by the Federal Confidentiality of Alcohol and Drug Abuse Patient Records regulations: The Federal rules restrict any use of the information to criminally investigate or prosecute any alcohol or drug abuse patient.[facility] HospitalIn the event this information is protected by the Federal Confidentiality of Alcohol and Drug Abuse Patient Records regulations: The Federal rules restrict any use of the information to criminally investigate or prosecute any alcohol or drug abuse patient.[facility] HospitalIn the event this information is protected by the Federal Confidentiality of Alcohol and Drug Abuse Patient Records regulations: The Federal rules restrict any use of the information to criminally investigate or prosecute any alcohol or drug abuse patient.[facility] HospitalIn the event this information is protected by the Federal Confidentiality of Alcohol and Drug Abuse Patient Records regulations: The Federal rules restrict any use of the information to criminally investigate or prosecute any alcohol or drug abuse patient.[facility] HospitalIn the event this information is protected by the Federal Confidentiality of Alcohol and Drug Abuse Patient Records regulations: The Federal rules restrict any use of the information to criminally investigate or prosecute any alcohol or drug abuse patient.[facility] HospitalIn the event this information is protected by the Federal Confidentiality of Alcohol and Drug Abuse Patient Records regulations: The Federal rules restrict any use of the information to criminally investigate or prosecute any alcohol or drug abuse patient.[facility] HospitalIn the event this information is protected by the Federal Confidentiality of Alcohol and Drug Abuse Patient Records regulations: The Federal rules restrict any use of the information to criminally investigate or prosecute any alcohol or drug abuse patient.[facility] HospitalIn the event this information is protected by the Federal Confidentiality of Alcohol and Drug Abuse Patient Records regulations: The Federal rules restrict any use of the information to criminally investigate or prosecute any alcohol or drug abuse patient.[facility] HospitalIn the event this information is protected by the Federal Confidentiality of Alcohol and Drug Abuse Patient Records regulations: The Federal rules restrict any use of the information to criminally investigate or prosecute any alcohol or drug abuse patient.[facility] HospitalIn the event this information is protected by the Federal Confidentiality of Alcohol and Drug Abuse Patient Records regulations: The Federal rules restrict any use of the information to criminally investigate or prosecute any alcohol or drug abuse patient.[facility] HospitalIn the event this information is protected by the Federal Confidentiality of Alcohol and Drug Abuse Patient Records regulations: The Federal rules restrict any use of the information to criminally investigate or prosecute any alcohol or drug abuse patient.[facility] HospitalIn the event this information is protected by the Federal Confidentiality of Alcohol and Drug Abuse Patient Records regulations: The Federal rules restrict any use of the information to criminally investigate or prosecute any alcohol or drug abuse patient.[facility] HospitalIn the event this information is protected by the Federal Confidentiality of Alcohol and Drug Abuse Patient Records regulations: The Federal rules restrict any use of the information to criminally investigate or prosecute any alcohol or drug abuse patient.[facility] HospitalIn the event this information is protected by the Federal Confidentiality of Alcohol and Drug Abuse Patient Records regulations: The Federal rules restrict any use of the information to criminally investigate or prosecute any alcohol or drug abuse patient.[facility] HospitalIn the event this information is protected by the Federal Confidentiality of Alcohol and Drug Abuse Patient Records regulations: The Federal rules restrict any use of the information to criminally investigate or prosecute any alcohol or drug abuse patient.[facility] HospitalIn the event this information is protected by the Federal Confidentiality of Alcohol and Drug Abuse Patient Records regulations: The Federal rules restrict any use of the information to criminally investigate or prosecute any alcohol or drug abuse patient.[facility] HospitalIn the event this information is protected by the Federal Confidentiality of Alcohol and Drug Abuse Patient Records regulations: The Federal rules restrict any use of the information to criminally investigate or prosecute any alcohol or drug abuse patient.[facility] HospitalIn the event this information is protected by the Federal Confidentiality of Alcohol and Drug Abuse Patient Records regulations: The Federal rules restrict any use of the information to criminally investigate or prosecute any alcohol or drug abuse patient.[facility] HospitalIn the event this information is protected by the Federal Confidentiality of Alcohol and Drug Abuse Patient Records regulations: The Federal rules restrict any use of the information to criminally investigate or prosecute any alcohol or drug abuse patient.[facility] HospitalIn the event this information is protected by the Federal Confidentiality of Alcohol and Drug Abuse Patient Records regulations: The Federal rules restrict any use of the information to criminally investigate or prosecute any alcohol or drug abuse patient.[facility] HospitalIn the event this information is protected by the Federal Confidentiality of Alcohol and Drug Abuse Patient Records regulations: The Federal rules restrict any use of the information to criminally investigate or prosecute any alcohol or drug abuse patient.[facility] HospitalIn the event this information is protected by the Federal Confidentiality of Alcohol and Drug Abuse Patient Records regulations: The Federal rules restrict any use of the information to criminally investigate or prosecute any alcohol or drug abuse patient.[facility] HospitalIn the event this information is protected by the Federal Confidentiality of Alcohol and Drug Abuse Patient Records regulations: The Federal rules restrict any use of the information to criminally investigate or prosecute any alcohol or drug abuse patient.[facility] HospitalIn the event this information is protected by the Federal Confidentiality of Alcohol and Drug Abuse Patient Records regulations: The Federal rules restrict any use of the information to criminally investigate or prosecute any alcohol or drug abuse patient.[facility] HospitalIn the event this information is protected by the Federal Confidentiality of Alcohol and Drug Abuse Patient Records regulations: The Federal rules restrict any use of the information to criminally investigate or prosecute any alcohol or drug abuse patient.[facility] HospitalIn the event this information is protected by the Federal Confidentiality of Alcohol and Drug Abuse Patient Records regulations: The Federal rules restrict any use of the information to criminally investigate or prosecute any alcohol or drug abuse patient.[facility] HospitalIn the event this information is protected by the Federal Confidentiality of Alcohol and Drug Abuse Patient Records regulations: The Federal rules restrict any use of the information to criminally investigate or prosecute any alcohol or drug abuse patient.[facility] HospitalIn the event this information is protected by the Federal Confidentiality of Alcohol and Drug Abuse Patient Records regulations: The Federal rules restrict any use of the information to criminally investigate or prosecute any alcohol or drug abuse patient.[facility] HospitalIn the event this information is protected by the Federal Confidentiality of Alcohol and Drug Abuse Patient Records regulations: The Federal rules restrict any use of the information to criminally investigate or prosecute any alcohol or drug abuse patient.[facility] HospitalIn the event this information is protected by the Federal Confidentiality of Alcohol and Drug Abuse Patient Records regulations: The Federal rules restrict any use of the information to criminally investigate or prosecute any alcohol or drug abuse patient.[facility] HospitalIn the event this information is protected by the Federal Confidentiality of Alcohol and Drug Abuse Patient Records regulations: The Federal rules restrict any use of the information to criminally investigate or prosecute any alcohol or drug abuse patient.[facility] HospitalIn the event this information is protected by the Federal Confidentiality of Alcohol and Drug Abuse Patient Records regulations: The Federal rules restrict any use of the information to criminally investigate or prosecute any alcohol or drug abuse patient.[facility] HospitalIn the event this information is protected by the Federal Confidentiality of Alcohol and Drug Abuse Patient Records regulations: The Federal rules restrict any use of the information to criminally investigate or prosecute any alcohol or drug abuse patient.[facility] HospitalIn the event this information is protected by the Federal Confidentiality of Alcohol and Drug Abuse Patient Records regulations: The Federal rules restrict any use of the information to criminally investigate or prosecute any alcohol or drug abuse patient.[facility] Care Teams (unrecognized sec tion and content) Dumpster Operator Relationship Specialty Start Date End Date Kristal Sullivan MD [address] [place] [address] PCP - General Internal Medicine 11/17/14 Reid Ko MD Nursing Professor Endocrinology 12/08/19 Reid Ko MD Nursing Professor Endocrinology 01/11/20 [facility] 09/14/19 Dumpster Operator Relationship Specialty Start Date End Date Kristal Sullivan MD [address] [place] [address] PCP - General Internal Medicine 11/17/14 Reid Ko MD [address] [place] [address] Nursing Professor Endocrinology 12/08/19 Reid Ko MD [address] [place] [address] Nursing Professor Endocrinology 01/11/20 [facility] 09/14/19 Dumpster Operator Relationship Specialty Start Date End Date Kristal Sullivan MD [address] [facility] [place] [address] PCP - General Internal Medicine 11/17/14 Reid Ko MD [address] [facility] [place] [address] Nursing Professor Endocrinology 12/08/19 Reid Ko MD [address] [facility] [place] [address] Nursing Professor Endocrinology 01/11/20 [facility] 09/14/19 Dumpster Operator Relationship Specialty Start Date End Date Kristal Sullivan MD [address] [facility] [place] [address] PCP - General Internal Medicine 11/17/14 Reid Ko MD [address] [facility] [place] [address] Nursing Professor Endocrinology 12/08/19 Reid Ko MD [address] [facility] [place] [address] Nursing Professor Endocrinology 01/11/20 [facility] 09/14/19 Dumpster Operator Relationship Specialty Start Date End Date Kristal Sullivan MD [address] [facility] [place] [address] PCP - General Internal Medicine 11/17/14 Reid Ko MD [address] [facility] [place] [address] Nursing Professor Endocrinology 12/08/19 Reid Ko MD [address] [facility] [place] [address] Nursing Professor Endocrinology 01/11/20 [facility] 09/14/19 Dumpster Operator Relationship Specialty Start Date End Date Kristal Sullivan MD [address] [facility] [place] [address] PCP - General Internal Medicine 11/17/14 Reid Ko MD [address] [facility] [place], [place] [address] Nursing Professor Endocrinology 12/08/19 Reid Ko MD [address] [facility] [place], [place] [id number] Nursing Professor Endocrinology 01/11/20 [facility] 09/14/19 Team Status: Active Member Role [...] MD Primary Care Provider Active Dr. Laurie Eilzalde DO Emergency Provider Active Dr. Louis Koehler [...] Dr. Nelly Gross MD Attending Provider Active Dumpster Operator Relationship Specialty Start Date End Date Kristal Sullivan MD [address] [place] [address] PCP - General Internal Medicine 11/17/14 Reid Ko MD [address] [place] [address] Nursing Professor Endocrinology 12/08/19 Reid Ko MD [address] [place], [place] 824[address] Nursing Professor Endocrinology 01/11/20 [facility] 09/14/19 Dumpster Operator Relationship Specialty Start Date End Date Kristal Sullivan MD [address] [place], [place] [address] PCP - General Internal Medicine 11/17/14 Reid Ko MD [address] [facility] [place] [address] Nursing Professor Endocrinology 12/08/19 Reid Ko MD [address] [facility] [address] Nursing Professor Endocrinology 01/11/20 [facility] 09/14/19 Team Status: Inactive Member Role [...] Dr. Caleb Vargas MD Attending Provider Active Dumpster Operator Relationship Specialty Start Date End Date Kristal Sullivan MD [address] [facility] [place] [address] PCP - General Internal Medicine 11/17/14 Reid Ko MD [address] [facility] [place] [address] Nursing Professor Endocrinology 12/08/19 Reid Ko MD [address] [place] [address] Nursing Professor Endocrinology 01/11/20 [facility] 09/14/19 Dumpster Operator Relationship Specialty Start Date End Date Kristal Sullivan MD [address] [place] [address] PCP - General Internal Medicine 11/17/14 Reid Ko MD [address] [place] [address] Nursing Professor Endocrinology 12/08/19 Reid Ko MD [address] [place] [address] Nursing Professor Endocrinology 01/11/20 [facility] 09/14/19 Dumpster Operator Relationship Specialty Start Date End Date Kristal Sullivan MD [address] [place] [address] PCP - General Internal Medicine 11/17/14 Reid Ko MD [address] [place] [address] Nursing Professor Endocrinology 12/08/19 Reid Ko MD [address] [place] [address] Nursing Professor Endocrinology 01/11/20 [facility] 09/14/19 Dumpster Operator Relationship Specialty Start Date End Date Kristal Sullivan MD [address] [facility] [place] [address] PCP - General Internal Medicine 11/17/14 Reid Ko MD [address] [place] [address] Nursing Professor Endocrinology 12/08/19 Reid Ko MD [address] [facility] [place] [place] [address] Nursing Professor Endocrinology 01/11/20 [facility] 09/14/19 Dumpster Operator Relationship Specialty Start Date End Date Kristal Sullivan MD [address] [place] [address] PCP - General Internal Medicine 11/17/14 Reid Ko MD [address] [place] [address] Nursing Professor Endocrinology 12/08/19 Reid Ko MD [address] [place] [address] Nursing Professor Endocrinology 01/11/20 [facility] 09/14/19 Dumpster Operator Relationship Specialty Start Date End Date Kristal Sullivan MD [address] [place] [address] PCP - General Internal Medicine 11/17/14 Reid Ko MD [address] [place] [address] Nursing Professor Endocrinology 12/08/19 Reid Ko MD [address] [facility] [place] [address] Nursing Professor Endocrinology 01/11/20 [facility] 09/14/19 Dumpster Operator Relationship Specialty Start Date End Date Kristal Sullivan MD [address] [place] [address] PCP - General Internal Medicine 11/17/14 Reid Ko MD [address] [place] [address] Nursing Professor Endocrinology 12/08/19 Reid Ko MD [address] [place] [address] Nursing Professor Endocrinology 01/11/20 [facility] 09/14/19 Dumpster Operator Relationship Specialty Start Date End Date Kristal Sullivan MD [address] [place] [address] PCP - General Internal Medicine 11/17/14 Reid Ko MD [address] [place] [address] Nursing Professor Endocrinology 12/08/19 Reid Ko MD [address] [place] [address] Nursing Professor Endocrinology 01/11/20 [facility] 09/14/19 Dumpster Operator Relationship Specialty Start Date End Date Kristal Sullivan MD [address] [place] [address] PCP - General Internal Medicine 11/17/14 Reid Ko MD [address] [place] [address] Nursing Professor Endocrinology 12/08/19 Reid Ko MD [address] [place] [address] Nursing Professor Endocrinology 01/11/20 [facility] 09/14/19 Dumpster Operator Relationship Specialty Start Date End Date Kristal Sullivan MD [address] [place] [address] PCP - General Internal Medicine 11/17/14 Reid Ko MD [address] [place] [address] Nursing Professor Endocrinology 12/08/19 Reid Ko MD [address] [place] [address] Nursing Professor Endocrinology 01/11/20 [facility] 09/14/19 Dumpster Operator Relationship Specialty Start Date End Date Kristal Sullivan MD [address] [place] [address] PCP - General Internal Medicine 11/17/14 Reid Ko MD [address] [facility] [place] [place] [address] Nursing Professor Endocrinology 12/08/19 Reid Ko MD [address] [place] [address] Nursing Professor Endocrinology 01/11/20 [facility] 09/14/19 Dumpster Operator Relationship Specialty Start Date End Date Kristal Sullivan MD [address] [facility] [place] [place] [address] PCP - General Internal Medicine 11/17/14 Reid Ko MD [address] [place] [address] Nursing Professor Endocrinology 12/08/19 Reid Ko MD [address] [place] [address] Nursing Professor Endocrinology 01/11/20 Vicki Samuel PA-C [address] [place] [address] [facility] 03/07/24 Binta Oneil APRN.SPRIGGER [address] [place] [address] [facility] Internal Medicine 03/07/24 Basia Deluna PA-C [address] [place] [address] [facility] 03/07/24 [facility] 09/14/19 Dumpster Operator Relationship Specialty Start Date End Date Kristal Sullivan MD [address] [place] [address] PCP - General Internal Medicine 11/17/14 Reid Ko MD [address] [place] [address] Nursing Professor Endocrinology 12/08/19 Reid Ko MD [address] [place] [address] Nursing Professor Endocrinology 01/11/20 Vicki Samuel PA-C [address] [place] [address] [facility] 03/07/24 Binta Oneil APRN.SPRIGGER [address] [place] [address] Faith Doctor Internal Medicine 03/07/24 Basia Deluna PA-C [address] [facility] [place] [address] Faith Doctor Family Medicine 03/07/24 [facility] 09/14/19 Dumpster Operator Relationship Specialty Start Date End Date Kristal Sullivan MD [address] [facility] [place] [address] PCP - General Internal Medicine 11/17/14 Reid Ko MD [address] [facility] [place] [address] Nursing Professor Endocrinology 12/08/19 Reid Ko MD [address] [facility] [place] [address] Nursing Professor Endocrinology 01/11/20 Vicki Samuel PA-C [address] [place] [address] Faith Doctor Family Medicine 03/07/24 Binta Oneil APRN.SPRIGGER [address] [place] [address] Faith Doctor Internal Medicine 03/07/24 Basia Deluna PA-C [address] [facility] [place] [address] Faith Doctor Family Medicine 03/07/24 [facility] 09/14/19 Dumpster Operator Relationship Specialty Start Date End Date Kristal Sullivan MD [address] [place] [address] PCP - General Internal Medicine 11/17/14 Reid Ko MD [address] [place] [address] Nursing Professor Endocrinology 12/08/19 Reid Ko MD [address] [place] [address] Nursing Professor Endocrinology 01/11/20 Vicki Samuel PA-C [address] [place] [address] Faith Doctor Family Medicine 03/07/24 Binta Oneil APRN.[facility] [address] [place] [address] Faith Doctor Internal Medicine 03/07/24 Basia Deluna PA-C [address] [place] [address] Faith Doctor Family Medicine 03/07/24 [facility] 09/14/19 Dumpster Operator Relationship Specialty Start Date End Date Kristal Sullivan MD [address] [place] [address] PCP - General Internal Medicine 11/17/14 Reid Ko MD [address] [place] [address] Nursing Professor Endocrinology 12/08/19 Reid Ko MD [address] [facility] [place] [address] Nursing Professor Endocrinology 01/11/20 Vicki Samuel PA-C [address] [place] [address] Faith Doctor Family Medicine 03/07/24 Binta Oneil APRN.SPRIGGER [address] [place] [address] Faith Doctor Internal Medicine 03/07/24 Basia Deluna PA-C [address] [place] [address] [facility] 03/07/24 [facility] 09/14/19 Dumpster Operator Relationship Specialty Start Date End Date Kristal Sullivan MD [address] [place] [address] PCP - General Internal Medicine 11/17/14 Ried Ko MD [address] [place] [address] Nursing Professor Endocrinology 12/08/19 Reid Ko MD [address] [place] [address] Nursing Professor Endocrinology 01/11/20 Vicki Samuel PA-C [address] [place] [address] Faith Doctor Family Medicine 03/07/24 Binta Oneil APRN.SPRIGGER [address] [place] [address] Faith Doctor Internal Medicine 03/07/24 Basia Deluna PA-C [address] [place] [address] Faith Doctor Family Medicine 03/07/24 [facility] 09/14/19 Dumpster Operator Relationship Specialty Start Date End Date Kristal uSllivan MD [address] [place] [address] PCP - General Internal Medicine 11/17/14 Reid Ko MD [address] [place], [place] 467[address] Nursing Professor Endocrinology 12/08/19 Reid Ko MD [address] [place] [address] Nursing Professor Endocrinology 01/11/20 Vicki Samuel PA-C [address] [place] [address] Faith Doctor Family Medicine 03/07/24 Binta Oneil APRN.CNP [address] [place] [address] Faith Doctor Internal Medicine 03/07/24 Basia Deluna PA-C [address] [place] [address] Faith Doctor Family Medicine 03/07/24 [facility] 09/14/19 Dumpster Operator Relationship Specialty Start Date End Date Kirstal Sullivan MD [address] [place] [address] PCP - General Internal Medicine 11/17/14 Reid Ko MD [address] [facility] [place] [address] Nursing Professor Endocrinology 12/08/19 Reid Ko MD [address] [place] [address] Nursing Professor Endocrinology 01/11/20 Vicki Samuel PA-C [address] [place] [address] Faith Doctor Family Medicine 03/07/24 Binta Oneil APRN.SPRIGGER [address] [place] [address] Faith Doctor Internal Medicine 03/07/24 Basia Deluna PA-C [address] [place] [address] Faith Doctor Family Medicine 03/07/24 [facility] 09/14/19 Dumpster Operator Relationship Specialty Start Date End Date Kristal Sullivan MD [address] [place] [address] PCP - General Internal Medicine 11/17/14 Reid Ko MD [address] [place] [address] Nursing Professor Endocrinology 12/08/19 Reid Ko MD [address] [place] [address] Nursing Professor Endocrinology 01/11/20 Vicki Samuel PA-C [address] [place] [address] Faith Doctor Family Medicine 03/07/24 Binta Oneil APRN.SPRIGGER [address] [place] [address] Faith Doctor Internal Medicine 03/07/24 Basia Deluna PA-C [address] [place] [address] Faith Doctor Family Medicine 03/07/24 [facility] 09/14/19 Dumpster Operator Relationship Specialty Start Date End Date Kristal Sullivan MD [address] [place] [address] PCP - General Internal Medicine 11/17/14 Reid Ko MD [address] [place] [address] Nursing Professor Endocrinology 12/08/19 Reid Ko MD [address] [place] [address] Nursing Professor Endocrinology 01/11/20 Vicki Samuel PA-C [address] [place] [address] Faith Doctor Family Medicine 03/07/24 06/20/24 Binta Oneil APRN.SPRIGGER [address] [place] [address] Faith Doctor Internal Medicine 03/07/24 Basia Deluna PA-C [address] [place] [address] Faith Doctor Family Medicine 03/07/24 06/20/24 [facility] 09/14/19 Dumpster Operator Relationship Specialty Start Date End Date Kristal Sullivan MD [address] [place] [address] PCP - General Internal Medicine 11/17/14 Reid Ko MD [address] [place] [address] Nursing Professor Endocrinology 12/08/19 Reid Ko MD [address] [place] [address] Nursing Professor Endocrinology 01/11/20 Binta Oneil APRN.[facility] [address] [place] [address] Faith Doctor Internal Medicine 03/07/24 [facility] 09/14/19 Dumpster Operator Relationship Specialty Start Date End Date Kristal Sullivan MD [address] [place] [address] PCP - General Internal Medicine 11/17/14 Reid Ko MD [address] [place] [address] Nursing Professor Endocrinology 12/08/19 Reid Ko MD [address] [place], [place] 358871 Nursing Professor Endocrinology 01/11/20 Vicki Samuel, VERONICA [address] [place] [address] [facility] Family Medicine 03/07/24 06/20/24 Binta Oneil APRN.SPRIGGER [address] [place] [address] [facility] Internal Medicine 03/07/24 Basia Deluna PA-C [address] [place] [address] [facility]ly [facility] 03/07/24 06/20/24 [facility] 09/14/19 Dumpster Operator Relationship Specialty Start Date End Kristal Sullivan MD [address] [place] [address] PCP - General Internal Medicine 11/17/14 Reid Ko MD [address] [place] [address] Nursing Professor Endocrinology 12/08/19 Reid Ko MD [address] [facility] [place] [address] Nursing Professor Endocrinology 01/11/20 Binta Oneil APRN.SPRIGGER [address] [place] [address] [facility] Internal Medicine 03/07/24 [facility] 09/14/19 Team Status: Active Member Role [...] February 25, 2024 End: February 25, 2024 RAVINDER Infante Attending Provider Active Start: February 25, [...] July 07, 2024 End: July 07, 2024 Dumpster Operator Relationship Specialty Start Date End Date Kristal Sullivan MD [address] [place] [address] PCP - General Internal Medicine 11/17/14 Reid Ko MD [address] [place] [address] Nursing Professor Endocrinology 12/08/19 Reid Ko MD [address] [place], [place] [address] Nursing Professor Endocrinology 01/11/20 Binta Oneil APRN.SPRIGGER [address] [place], [place] [address] Faith Doctor Internal Medicine 03/07/24 [facility] 09/14/19 Team Status: Active Member Role [...] Other Provider Active Start: August 11, 2024 Dumpster Operator Relationship Specialty Start Date End Date Kristal Sullivan MD [address] [place] [address] PCP - General Internal Medicine 11/17/14 Reid Ko MD [address] [place] [address] Nursing Professor Endocrinology 12/08/19 Reid Ko MD [address] [place] [address] Nursing Professor Endocrinology 01/11/20 Binta Oneil APRN.[facility] [address] [place] [address] Faith Doctor Internal Medicine 03/07/24 [facility] 09/14/19 Dumpster Operator Relationship Specialty Start Date End Date Kristal Sullivan MD [address] [place] [address] PCP - General Internal Medicine 11/17/14 Reid Ko MD [address] [place] [address] Nursing Professor Endocrinology 12/08/19 Reid Ko MD [address] [place], [place] 9378[address] Nursing Professor Endocrinology 01/11/20 Vicki Samuel PA-C [address] [place] [address] Faith Doctor Family Medicine 03/07/24 06/20/24 Older, REEMA Judd.SPRIGGER [address] [place] [address] [facility] Internal Medicine 03/07/24 Basia Deluna PA-C [address] [place] [address] [facility] Family [facility] 03/07/24 06/20/24 [facility] 09/14/19 Team Status: Inactive Member Role [...] August 19, 2024 End: August 19, 2024 Dumpster Operator Relationship Specialty Start Date End Date Kristal Sullivan MD [address] [place] [address] PCP - General Internal Medicine 08/23/24 Team [...] 2024 End: August 31, 2024 Lorraine Browne TRIAGE SPECIALIST, TRIAGE SPECIALIST-C Attending Provider Active Start: August 31, 2024 End: August 31, 2024 Team Status: Inactive Member Role Status Dates Dr. Kristal Sullivan MD Primary Care Provider Active Start: September 07, 2024 End: September 07, 2024 Dr. Kristal Sullivan MD Referring Provider Active Start: September 07, 2024 End: September 07, 2024 RAVINDER Sloan Attending Provider Active Start: September 07, 2024 End: September 07, 2024 Dumpster Operator Relationship Specialty Start Date End Date Kristal Sullivan MD [address] [facility] [place] [address] PCP - General Internal Medicine 11/17/14 Reid Ko MD [address] [facility] [place] [address] Nursing Professor Endocrinology 12/08/19 Reid Ko MD [address] [facility] [place], [place] [address] Nursing Professor Endocrinology 01/11/20 Binta Oneil APRN.CNP [address] [facility], [place] [address] Faith Doctor Internal Medicine 03/07/24 [facility] 09/14/19 Team Status: Inactive Member Role Status Dates Dr. Kristal Sullivan MD Primary Care Provider Active Start: September 16, 2024 End: September 16, 2024 RAVINDER Sloan Attending Provider Active Start: September 16, 2024 End: September 16, 2024 RAVINDER Sloan Referring Provider Active Start: September 16, 2024 End: September 16, 2024 Dumpster Operator Relationship Specialty Start Date End Date Kristal Sullivan MD [address] [facility] [place] [address] PCP - General Internal Medicine 11/17/14 Reid Ko MD [address] [facility] [place], [place] [address] Nursing Professor Endocrinology 12/08/19 Reid Ko MD [address] [facility] [place] [address] Nursing Professor Endocrinology 01/11/20 Binta Oenil APRN.SPRIGGER [address] [place] [address] Faith Doctor Internal Medicine 03/07/24 [facility] 09/14/19 Dumpster Operator Relationship Specialty Start Date End Date Kristal Sullivan MD [address] [place] [address] PCP - General Internal Medicine 11/17/14 Reid Ko MD [address] [place] [address] Nursing Professor Endocrinology 12/08/19 Reid Ko MD [address] [place] [address] Nursing Professor Endocrinology 01/11/20 Binta Oneil APRN.SPRIGGER [address] [place] [address] Faith Doctor Internal Medicine 03/07/24 [facility] 09/14/19 Dumpster Operator Relationship Specialty Start Date End Date Kristal Sullivan MD [address] [place] [address] PCP - General Internal Medicine 11/17/14 Reid Ko MD [address] [place] [address] Nursing Professor Endocrinology 12/08/19 Reid Ko MD [address] [place] [address] Nursing Professor Endocrinology 01/11/20 ClariceBintaAPRN.SPRIGGER [address] [place] [address] Faith Doctor Internal Medicine 03/07/24 [facility] 09/14/19 Reason for Visit (unrecogniz ed [...] W & W/O CONTRAST Ronen Eldridge MD [address] [id number] [place] [address] Referral ID Status Reason Start Date Expiration Date Visits Requested Visits Authorized [id number] Authorized Financial Clearance Required - OON Payor [...] W & W/O CONTRAST Ronen Eldridge MD [address] [place] [address] [facility] [address] [place] [address] Specialty Diagnoses / Procedures Referred By Contac t Referred To Contact CT IMAGING Diagnoses Chronic renal failure, stage 4 (severe) (HCC) Pre-transplant evaluation for kidney and pancreas transplant Procedures CT ABD/PEL WO IVCON CT ABD & PELVIS W/O CONTRAST Kim Chung PA-C [address] [place] [address] [address] [facility] [place] [address] Referral ID Status Reason Start Date Expiration Date V isits Requested Visits Authorized [id number] Closed Auto-Generated Referral Patient Cleared - INN Insurance Found 08/14/2023 10/13/2023 1 1 Reason Comments Clinical Update Reason Comments Patient Update Reason Comments Radiology NM Specialty Diagnoses / Procedures Referred By Martyac t Referred To Contact MOLECULAR & FUNCTIONAL IMAGING Diagnoses Encounter for other preprocedural examination Procedures NM CARDIAC PERF STRESS/PHARM MYOCARDIAL SPECT MULTIPLE STUDIES Ronen Eldridge MD [address] [id number] Molecular & Functional Imaging [address] [place] [address] Referral ID Status Reason Start Date Expiration Date Visits Requested Visits Authorized [id number] Pending Review Auto-Genera sharan Referral Patient Cleared [...] W & W/O CONTRAST Ronen Eldridge MD [address] [place] [address] Phone: tel: fax: Trans[facility] [address] [place] [address] Phone: tel: Referral ID Status Reason Start Date Expiration Date Visits Requested Visits Authorized [id number] Authorized Financial Clearance Required - OON Payor Patient Cleared - INN Insurance Found 10/12/2024 10/12/2029 [id number] [phone] (unrecognized sect ion and content) No Status Records FoundNo Status Records FoundNo Status Records FoundNo Status Records Found INFORMATION SOURCE (unrecogn ized section and content) DATE CREATED AUTHOR 12/25/2023 [facility] DATE CREATED AUTHOR AUTHOR'S ORGANIZ ATION 09/22/2024 [facility] DATE CREATED AUTHOR AUTHOR'S ORGANIZ ATION 10/10/2024 [facility] DATE CREATED AUTHOR AUTHOR'S ORGANIZ ATION 10/17/2024 [facility] Scheduled Active and Recently Administ [...] vomiting, Starting on Fri08/24/24 at 0809, Give LA if patient is unable to take orally [...] vomiting, Starting on Fri08/24/24 at 0809, Give LA if patient is unable to take orally [...] BE BASED ON THE PRIMARY CLINICAL RECORDS. [facility] [employer] [facility]. provides no warranty or guarantee of the accuracy or completeness of information in this document.
[2024-10-19 06:56] LABS: Hematocrit 28.8 % (40-54); Hemoglobin 9.6 g/dL (13.0-16.5); Immature Granulocytes Count 0.080 X10^3/uL (0.0-0.0); Mean Corp Hgb Conc 33.3 g/dL (32-36); Mean Corpuscular Volume 90.9 fL (80-94); Mean Platelet Vol. 9.7 fl (6.2-12.0); NRBC Flagged by Analyzer 0 % (0-5); Platelet Count 226 K/mm3 (150-450); RBC Distribution Width CV 14.3 % (11.6-14.6); RBC Distribution Width SD 47.6 fl (35.1-43.9); Red Blood Count 3.17 M/mm3 (4.6-6.2); White Blood Count 16.7 K/mm3 (4.4-11.0)
[2024-10-19] MEDS: 0.9% Normal Saline 1,000 ML IV.SOLN. 1000 ML OPERA.SITE (07:35)
[2024-10-19 08:03] LABS: Anion Gap 21 (5-15); BUN/Creat Ratio 10.5 RATIO (10-20); Calcium,Total 9.5 mg/dL (7.6-11.0); Carbon Dioxide 18.2 mmol/L (21.0-32.0); Chloride 97 mmol/L (98-108); Estimated Creatinine Clearance 10.47 ml/min (50-250); Glucose 85 mg/dL (70-99); Potassium 4.6 mmol/L (3.3-5.1)
[2024-10-19] MEDS: Aspirin E.C. 81 MG Tablet PO (09:25)
[2024-10-19] MEDS: Cholecalciferol (Vit D3) 125 MCG CAPSULE (5,000 UNITS) PO (09:25)
[2024-10-19] MEDS: SEVELAMER CARBONATE 800 MG TABLET PO (09:26)
[2024-10-19] MEDS: Insulin Basal Pump 80 UNIT SC (09:26)
[2024-10-19] MEDS: 0.9% Saline Lock 10 ML Syringe IV (09:46)
--- NOTE | 2024-10-19 10:57 | NURSING ---
Made Dr. Emerson aware of patients heart rate jumping up into the 150's-160's, but then going back down into the high 90's to low 100's. Rhythm is normal sinus rhythm to sinus tach. Patient did not receive dialysis this morning due to fistula infiltration. Dr. Emerson notified of this as well. Critical creatinine and BUN reported to Dr. Emerson. Will continue to monitor heart rate as well as labs. No intervention ordered at this time.
--- NOTE | 2024-10-19 11:40 | CASEMGMT ---
RN IVY shrimper CM to room to meet with patient for initial transition planning/care coordination assessment. KANDACE HAYNES introduced self and role at [facility], pt voices understanding. Pt is A&O and is resting comfortably in bed. Care providers, pharmacy, and demographics verified. Strata: 3 PCP: Dr Luke Specialists: Dr Ko (Endo), Dr Diaz (Nephro), Dr Angulo (GI) Hemodialysis: Pt goes to [facility], arrival @ 8 AM. Pt states has been educated to do home HD and was scheduled to do his first home HD tomorrow. Preferred Pharmacy: [facility] @ [facility]. Otherwise, goes to [facility] Insurance: [employer] Prescription Benefit: Yes LNOK: Ira Truong (ex-), Dajuan (son) Living Arrangements: Pt lives with his ex- and 3 children (ages 19,17,15) in a 2 story home with 15 steps to enter. Pt is independent w/ADL's & IADL's. Family share home mgnt tasks. Pt manages his own medications. Transportation: Self, Ex- DME: Pt has a functioning Dexcom CGM, Omnipod insulin pump, and a glucometer as a backup & states has sufficient supplies. Pt does not have home O2 and does not have a pulse ox. Recommended to purchase a pulse ox. Pt currently on RA. HHC/SNF: Denies history or needs Plan: Home. Sofia ROMEO RN, CM
--- NOTE | 2024-10-19 18:30 | CON.PCM.RE_ITS ---
Assessment & Plan Assessment/Plan (1) ESRD (end stage renal disease) on dialysis: PLAN: Plan Impression/Plan: The patient is a 44-year-old male with past history of ESRD, type 1 diabetes mellitus, hypertension, CAD status post PCI, and hyperlipidemia. Patient presented to the hospital on 10/19/2024 with dyspnea. Patient was admitted to the hospital for treatment of acute hypoxic respiratory failure attributed to possible community-acquired pneumonia. Nephrology is asked to see the patient because of ESRD and need for dialysis management. ESRD. Patient usually dialyzes on MTuThF schedule at [facility]. Patient was not dialyzed on 10/18/2024 prior to admission. We attempted to dialyze the patient earlier today. However, his left lower arm AV fistula infiltrated. Since patient is not volume overloaded and potassium level is not severely high, we will not retry to cannulate the fistula. Will retry again tomorrow. Nephrology plan was discussed with Dr. Emerson HPI Consult Data Date of Consult: 10/19/24 HPI Narrative Reason for Consultation: ESRD. HPI Narrative: The patient is a 44-year-old male with past history of ESRD, type 1 diabetes mellitus, hypertension, CAD status post PCI, and hyperlipidemia. Patient presented to the hospital on 10/19/2024 with dyspnea. Patient was admitted to the hospital for treatment of acute hypoxic respiratory failure attributed to community-acquired pneumonia. Nephrology is asked to see the patient because of ESRD and need for dialysis management. Patient dialyzes on MTuThF dialysis schedule at [facility]. Patient denies current chest pain. Dyspnea has improved. There is no edema of the lower extremities. His main complaints are back, neck and calf pain. [facility] Medical History Bloodstream infection Hypertension High cholesterol Restless legs Difficulty swallowing History of stress test Elevated troponin Insulin dependent diabetes mellitus History of renal dialysis History of renal disease Back pain Injury of back Dietary restriction Gastric reflux Non-smoker Leg cramps Cardiology follow-up encounter History of echocardiogram History of heart attack Acute non-ST elevation myocardial infarction (NSTEMI) CKD (chronic kidney disease), stage V Congestive heart failure of unknown etiology Overweight (BMI 25.0-29.9) NSTEMI, initial episode of care Acute kidney injury superimposed on chronic kidney disease Elevated troponin Pre-op testing ESRF (end stage renal failure) Stage 4 chronic kidney disease Diabetes mellitus type 1 Insulin pump titration Presence of insulin pump CKD (chronic kidney disease) Hypertension Charcot foot due to diabetes mellitus Home Medications ?Medication ?Instructions ?Recorded ?Last Taken ?Type aspirin 81 mg tablet,delayed 81 mg PO BREAKFAST #90 ta bs 02/25/24 10/18/24 08:33 Rx release clopidogrel 75 mg tablet 75 mg PO DAILY #90 tabs 01/3010/18/24 08:33 Rx rosuvastatin 10 mg tablet 10 mg PO DAILY #90 tabs 01/3010/18/24 08:34 Rx sevelamer carbonate 800 mg tablet 800 mg PO DAILY kidn eys 06/18/24 10/18/24 08:34 History blood-glucose sensor (Dexcom G6 #9 ea 07/23/24 Unknown Rx Sensor device) blood-glucose transmitter (Dexcom #1 ea 07/23/24 Unkno wn Rx G6 Transmitter device) cholecalciferol (vitamin D3) 50 150 mcg PO DAILY dieta ry supplement 07/28/24 10/18/24 08:33 History mcg (2,000 unit) capsule amlodipine 5 mg tablet 10 mg (2 x 5 mg) PO DAILY #9 0 tabs 08/11/24 10/18/24 08:33 Rx insulin aspart U-100 100 unit/mL 80 unit (0.8 mL) cont inuous 08/20/24 10/18/24 Rx subcutaneous solution (Novolog subcutaneous infusion . continuous U-100 Insulin aspart) #72 mL carvedilol 25 mg tablet 25 mg PO QDAY heart 09/07/24 10/18/24 08:33 History pantoprazole 40 mg tablet,delayed 40 mg PO BID #180 ta bs 09/07/24 10/18/24 14:34 Rx release insulin pump cart,auto,BT,G6/7 #30 ea 09/27/24 Unknown Rx (Omnipod 5 G6-G7 Pods (Gen 5) subcutaneous cartridge) Allergy/AdvReac Type Severity Reaction Status Date / Time No Known Allergies Allergy Verified 09/07/24 13:08 Family History Mother Diabetes Thyroid disorder Grandmother Diabetes Grandfather Diabetes Surgical History Hx of surgical procedure History of cardiac catheterization Hx of surgical procedure History of coronary artery stent placement History of surgery on lower extremity Social History Smoking Status: Never smoker alcohol intake: never substance use type: does not use ROS ROS Narrative As per HPI. Otherwise noncontributory. Physical Exam Narrative General: Alert and oriented x3, NAD. HEENT: Normocephalic, atraumatic. Mucous membrane moist without erythema. PERRLA, EOMI. Hearing is intact. Neck: Supple, no JVD. Trachea is midline. No thyromegaly or lymphadenopathy. Cardiovascular: Normal S1, S2. No rubs, murmurs, or gallops. Respiratory: Lungs are clear to auscultation bilaterally. No wheezing, rhonchi, or rales. Abdomen: Normal bowel sounds, soft, nontender, no guarding or rebound, no organomegaly. Extremities: No clubbing, cyanosis, or edema. Musculoskeletal: Full passive range of motion, no joint swelling. Psychiatric: Normal mood and affect. Skin: Warm and dry, no rash. Neurologic: Cranial nerve II to XII are grossly intact. No focal neurologic deficits. Lab / Micro Data 10/19/24 06:06 10/19/24 06:06 Labs: Laboratory Results - last 24 hr 10/19/24 01:33: POC Glucose 112 H 10/19/24 01:42: WBC 19.1 H, RBC 3.52 L, Hgb 10.8 L, Hct 31.3 L, MCV 88.9, MCH 30.7, MCHC 34.5, RDW Std Deviation 46.5 H, RDW Coeff of Marcella 14.5, Plt Count 269, MPV 9.4, Immature Gran % (Auto) 0.500, Neut % (Auto) 87.1 H, Lymph % (Auto) 5.9 L, [place] % (Auto) 5.3, Eos % (Auto) 0.7, Baso % (Auto) 0.5, Absolute Neuts (auto) 16.7 H, Absolute Lymphs (auto) 1.13, Nucleated RBC % 0, PT 13.5, INR 1.0, APTT 25.3, Sodium 135, Potassium 4.8, Chloride 93 L, Carbon Dioxide 20.6 L, Anion Gap 22 H, BUN 104 H*, Creatinine 9.78 H*, Estim Creat Clear Calc 11.30 L, Est GFR (MDRD) Non-Af 6 L, BUN/Creatinine Ratio 10.6, Glucose 118 H, Lactic Acid 1.1, Calcium 10.1, Total Bilirubin 0.35, AST 95 H, ALT 23, Alkaline Phosphatase 78, Total Protein 6.9, Albumin 4.4, Globulin 2.5, Albumin/Globulin Ratio 1.8, b- Hydroxybutyric mmol/L 0.9 H 10/19/24 02:36: Urine Color Straw, Urine Clarity Clear, Urine pH 6.0, Ur Specific [place] 1.015, Urine Protein 100 H, Urine Glucose (UA) 100 H, Urine Ketones Negative, Urine Occult Blood 150 H, Urine Nitrite Negative, Urine Bilirubin Negative, Urine Urobilinogen Normal, Ur Leukocyte Esterase Negative, Urine RBC 0-5 SEEN, Urine WBC 0-5 SEEN, Ur Squamous Epith Cells 0-5 SEEN, Ur Transition Epith Cell 0-5 SEEN, Urine Bacteria 1+, Urine Mucus 0 SEEN 10/19/24 06:06: WBC 16.7 H, RBC 3.17 L, Hgb 9.6 L, Hct 28.8 L, MCV 90.9, MCH 30.3, MCHC 33.3, RDW Std Deviation 47.6 H, RDW Coeff of Marcella 14.3, Plt Count 226, MPV 9.7, Immature Gran % (Auto) 0.500, Neut % (Auto) 84.8 H, Lymph % (Auto) 7.8 L, [place] % (Auto) 5.9, Eos % (Auto) 0.5, Baso % (Auto) 0.5, Absolute Neuts (auto) 14.2 H, Absolute Lymphs (auto) 1.30, Nucleated RBC % 0, Sodium 136, Potassium 4.6, Chloride 97 L, Carbon Dioxide 18.2 L, Anion Gap 21 H, BUN 103 H*, C reatinine 9.79 H*, Estim Creat Clear Calc 10.47 L, Est GFR (MDRD) Non-Af 6 L, BUN/Creatinine Ratio 10.5, Glucose 85, Calcium 9.5 ABG Data ABG results: ABG 10/19/24 02:42 Specimen Type ARMANI Sample Site Not entered O2 % 2.0 VBG pH 7.41 VBG pO2 23 L VBG HCO3 24 VBG Total CO2 25 VBG O2 Sat (Calc) 41 L VBG Base Excess -1 POC Mix VBG pCO2 Pt Tmp 37.4 L O2 Delivery Device Cannula Imaging Radiology Impression Chest X-Ray 10/19/24 02:10 IMPRESSION: Bilateral lung opacities could represent asymmetric edema as well as pneumonia. Advise correlation. [facility]
--- NOTE | 2024-10-19 20:02 | PCM.PN.HOSP ---
Reason for Visit Chief Complaint: Shortness of breath Subjective Subjective Patient was seen and examined today, I talked with nephrology briefly about his care, they were not able to access his fistula today for dialysis, they will try again tomorrow. Nephrology does not feel that he is fluid overloaded at this time. Patient remains on IV antibiotics for probable pneumonia, he is on 6 L of oxygen at this time. Objective Data Objective Data Vital Signs: Vital Signs Temp Pulse Resp BP Pulse Ox O2 Del Method O2 Flow Rate 99.3 F H 94 17 100/58 L 93 Nasal Cannula 6 10/19/24 15:00 10/19/24 15:00 10/19/24 15:00 10/19/24 15:00 10/19/24 15:00 10/19/24 15:00 10/19/24 15:00 Oxygen Flow Rate (L/min) 6 Oxygen Delivery Method Nasal Cannula Weight: 87.5 kg Body Mass Index (BMI) 27.0 Intake & Output: Intake and Output for Last 24 Hours 10/17/24 10/18/24 10/19/24 23:59 23:59 23:59 Intake Total 2000.00 / 2000.00 Output Total 500 / 500 Balance 1500.00 / 1500.00 Lab / Micro Data 10/19/24 06:06 10/19/24 06:06 Labs: Laboratory Results - last 24 hr 10/19/24 01:33: POC Glucose 112 H 10/19/24 01:42: WBC 19.1 H, RBC 3.52 L, Hgb 10.8 L, Hct 31.3 L, MCV 88.9, MCH 30.7, MCHC 34.5, RDW Std Deviation 46.5 H, RDW Coeff of Marcella 14.5, Plt Count 269, MPV 9.4, Immature Gran % (Auto) 0.500, Neut % (Auto) 87.1 H, Lymph % (Auto) 5.9 L, [place] % (Auto) 5.3, Eos % (Auto) 0.7, Baso % (Auto) 0.5, Absolute Neuts (auto) 16.7 H, Absolute Lymphs (auto) 1.13, Nucleated RBC % 0, PT 13.5, INR 1.0, APTT 25.3, Sodium 135, Potassium 4.8, Chloride 93 L, Carbon Dioxide 20.6 L, Anion Gap 22 H, BUN 104 H*, Creatinine 9.78 H*, Estim Creat Clear Calc 11.30 L, Est GFR (MDRD) Non-Af 6 L, BUN/Creatinine Ratio 10.6, Glucose 118 H, Lactic Acid 1.1, Calcium 10.1, Total Bilirubin 0.35, AST 95 H, ALT 23, Alkaline Phosphatase 78, Total Protein 6.9, Albumin 4.4, Globulin 2.5, Albumin/Globulin Ratio 1.8, b-Hydroxybutyric mmol/L 0.9 H 10/19/24 02:36: Urine Color Straw, Urine Clarity Clear, Urine pH 6.0, Ur Specific [place] 1.015, Urine Protein 100 H, Urine Glucose (UA) 100 H, Urine Ketones Negative, Urine Occult Blood 150 H, Urine Nitrite Negative, Urine Bilirubin Negative, Urine Urobilinogen Normal, Ur Leukocyte Esterase Negative, Urine RBC 0-5 SEEN, Urine WBC 0-5 SEEN, Ur Squamous Epith Cells 0-5 SEEN, Ur Transition Epith Cell 0-5 SEEN, Urine Bacteria 1+, Urine Mucus 0 SEEN 10/19/24 06:06: WBC 16.7 H, RBC 3.17 L, Hgb 9.6 L, Hct 28.8 L, MCV 90.9, MCH 30.3, MCHC 33.3, RDW Std Deviation 47.6 H, RDW Coeff of Marcella 14.3, Plt Count 226, MPV 9.7, Immature Gran % (Auto) 0.500, Neut % (Auto) 84.8 H, Lymph % (Auto) 7.8 L, [place] % (Auto) 5.9, Eos % (Auto) 0.5, Baso % (Auto) 0.5, Absolute Neuts (auto) 14.2 H, Absolute Lymphs (auto) 1.30, Nucleated RBC % 0, Sodium 136, Potassium 4.6, Chloride 97 L, Carbon Dioxide 18.2 L, Anion Gap 21 H, BUN 103 H*, Creatinine 9.79 H*, Estim Creat Clear Calc 10.47 L, Est GFR (MDRD) Non-Af 6 L, BUN/Creatinine Ratio 10.5, Glucose 85, Calcium 9.5 ABG Data ABG results: ABG 10/19/24 02:42 Specimen Type ARMANI Sample Site Not entered O2 % 2.0 VBG pH 7.41 VBG pO2 23 L VBG HCO3 24 VBG Total CO2 25 VBG O2 Sat (Calc) 41 L VBG Base Excess -1 POC Mix VBG pCO2 Pt Tmp 37.4 L O2 Delivery Device Cannula Radiography Diagnostic Testing: Radiology Impression Chest X-Ray 10/19/24 02:10 IMPRESSION: Bilateral lung opacities could represent asymmetric edema as well as pneumonia. Advise correlation. Reading Location: [place] [id number] Physical Exam Const alert, oriented x3 and no apparent distress General Appearance: cooperative, well kempt and well developed Orientation / Consciousness: awake, oriented to person, oriented to place and oriented to time HEENT normocephalic, head/scalp atraumatic and moist oral mucous membranes Eyes PERRL, EOMs intact bilaterally and conjunctivae normal Neck supple, no JVD, thyroid normal and no carotid bruits General: trachea midline Resp normal respiratory effort, no retractions and no use of accessory muscles Resp Narrative: Diminished breath sounds bilaterally Auscultation: Negative for rales, rhonchi or wheezes Cardio regular rate, regular rhythm, S1 normal heart sound, S2 normal heart sound, no murmurs, no rub and no gallops GI normal to inspection, nondistended, normoactive bowel sounds, soft to palpation, non-tender and non-distended Extremity no clubbing, cyanosis or edema Skin no rashes or lesions noted General Skin Exam: no breakdown Neuro oriented x3, CN's II-XII intact bilaterally, moves all extremities, no focal motor deficits and no sensory deficits noted Sensorium / Orientation: awake and alert Speech: speech normal Psych affect normal Assessment & Plan Assessment/Plan (1) Pneumonia: PLAN: Plan 1. Community-acquired pneumonia-continue Zithromax and Rocephin #2 end-stage renal disease on dialysis-patient will be dialyzed tomorrow #3 type 1 diabetes-patient will remain on his current insulin, sliding scale insulin will be administered as needed #4 coronary artery disease-stable at this time, he remains on his outpatient medication #5 hypoxia secondary to #1-pulse ox will be monitored, patient is currently on nasal cannula oxygen #6 hyperlipidemia-patient is on statin #7 essential hypertension-patient is on amlodipine Total clinical time spent by myself addressing patient's medical issues, reviewing all of his data, and collaborating with the patient's care team: 35 minutes Charges/Coding Visit Charges Inpatient E&M: 22709 Subs Hosp L2
[2024-10-19] MEDS: fentaNYL 100 MCG/2 ML Ampul 25 MCG IV (20:46)
[2024-10-20] VITALS (18 sets, daily range): BP systolic 117–138; BP diastolic 67–80; PULSE 76–95; RESP 12–26; TEMP 36.6–37.2; O2SAT 85–100; BMI 27.0; BMI 25.7
--- NOTE | 2024-10-20 00:13 | PCM.HOSP.N ---
Hospitalist Note Patient with intractable hiccups, will trial thorazine x 1.
[2024-10-20 00:46] LABS: BUN 103 mg/dL (4-19)
[2024-10-20] MEDS: PureFlow B 2K Dialysis Soln 1 BAG 6 BAG PF (10:15)
[2024-10-20] MEDS: 0.9% Normal Saline 1,000 ML IV.SOLN. 1000 ML OPERA.SITE (10:16)
[2024-10-20] MEDS: SEVELAMER CARBONATE 800 MG TABLET PO (13:27)
[2024-10-20] MEDS: Aspirin E.C. 81 MG Tablet PO (13:27)
[2024-10-20] MEDS: Cholecalciferol (Vit D3) 125 MCG CAPSULE (5,000 UNITS) PO (13:27)
[2024-10-20] MEDS: Insulin Basal Pump 80 UNIT SC (13:28)
--- NOTE | 2024-10-20 18:47 | PCM.PN.HOSP ---
Reason for Visit Chief Complaint: Shortness of breath Subjective Subjective Patient was seen and examined today, he underwent dialysis today and is now on 4 L of oxygen via nasal cannula. Patient appears comfortable at rest and does not appear short of breath. Objective Data Objective Data Vital Signs: Vital Signs Temp Pulse Resp BP Pulse Ox O2 Del Method O2 Flow Rate 97.9 F 95 12 129/79 H 95 Nasal Cannula 4 10/20/24 13:00 10/20/24 13:00 10/20/24 13:00 10/20/24 13:00 10/20/24 13:30 10/20/24 13:30 10/20/24 13:30 FiO2 61 10/20/24 06:40 Oxygen Flow Rate (L/min) 4 Oxygen Delivery Method Nasal Cannula Weight: 83.2 kg Body Mass Index (BMI) 25.7 Intake & Output: Intake and Output for Last 24 Hours 10/18/24 10/19/24 10/20/24 23:59 23:59 23:59 Intake Total 2000.00 / 2300.00 900 / 900 Output Total 500 / 1500 5930 / 5930 Balance 1500.00 / 800.00 -5030 / -5030 Lab / Micro Data 10/22/24 07:48 10/22/24 07:48 Labs: Laboratory Results - last 24 hr 10/19/24 06:06: BUN 103 H*, Creatinine 9.79 H* Physical Exam Const alert, oriented x3, no apparent distress, average body habitus and healthy appearing General Appearance: cooperative, well kempt and well developed Orientation / Consciousness: awake, oriented to person, oriented to place and oriented to time HEENT normocephalic, head/scalp atraumatic and moist oral mucous membranes Eyes PERRL, EOMs intact bilaterally and conjunctivae normal Neck supple, no JVD, thyroid normal and no carotid bruits General: trachea midline Resp normal respiratory effort, no retractions, no use of accessory muscles and clear to auscultation bilaterally Auscultation: Negative for rales, rhonchi or wheezes Cardio regular rate, regular rhythm, S1 normal heart sound, S2 normal heart sound, no murmurs, no rub and no gallops GI normal to inspection, nondistended, normoactive bowel sounds, soft to palpation, non-tender and non-distended Extremity no clubbing, cyanosis or edema Skin no rashes or lesions noted General Skin Exam: no breakdown Neuro oriented x3, CN's II-XII intact bilaterally, moves all extremities, no focal motor deficits and no sensory deficits noted Sensorium / Orientation: awake and alert Speech: speech normal Psych affect normal Assessment & Plan Assessment/Plan (1) Pneumonia: (2) ESRD (end stage renal disease) on dialysis: PLAN: Plan 1. Community-acquired pneumonia-continue Zithromax and Rocephin #2 end-stage renal disease on dialysis-patient will be dialyzed tomorrow #3 type 1 diabetes-patient will remain on his current insulin, sliding scale insulin will be administered as needed #4 coronary artery disease-stable at this time, he remains on his outpatient medication #5 hypoxia secondary to #1 and fluid overload from #2-pulse ox will be monitored, patient is currently on nasal cannula oxygen #6 hyperlipidemia-patient is on statin #7 essential hypertension-patient is on amlodipine Total clinical time spent by myself addressing patient's medical issues, reviewing all of his data, and collaborating with the patient's care team: 35 minutes Charges/Coding Visit Charges Inpatient E&M: 78341 Subs Hosp L2
[2024-10-20] MEDS: Azithromycin 500 MG in 0.9% Normal Saline (250mL Bag) 250 ML 250 MG IV (23:24)
[2024-10-21] VITALS (16 sets, daily range): BP systolic 100–140; BP diastolic 55–77; PULSE 82–97; RESP 16–100; TEMP 36.1–37; O2SAT 2–99; BMI 25.7; BMI 25.0
[2024-10-21 06:24] LABS: Hematocrit 28.1 % (40-54); Hemoglobin 9.5 g/dL (13.0-16.5); Immature Granulocytes Count 0.060 X10^3/uL (0.0-0.0); Mean Corp Hgb Conc 33.8 g/dL (32-36); Mean Corpuscular Volume 91.5 fL (80-94); Mean Platelet Vol. 9.4 fl (6.2-12.0); NRBC Flagged by Analyzer 0 % (0-5); Platelet Count 195 K/mm3 (150-450); RBC Distribution Width CV 14.1 % (11.6-14.6); RBC Distribution Width SD 46.7 fl (35.1-43.9); Red Blood Count 3.07 M/mm3 (4.6-6.2); White Blood Count 10.3 K/mm3 (4.4-11.0)
[2024-10-21] MEDS: SEVELAMER CARBONATE 800 MG TABLET PO (08:17)
--- NOTE | 2024-10-21 08:33 | PCM.PN.REN ---
Subjective Subjective Following up for ESRD. Patient seen for hemodialysis treatment today. Objective Data Objective Data Vital Signs: Vital Signs Temp Pulse Resp BP Pulse Ox O2 Del Method O2 Flow Rate 97 F L 97 16 132/73 H 97 Nasal Cannula 4 10/21/24 08:30 10/21/24 08:30 10/21/24 08:30 10/21/24 08:30 10/21/24 08:30 10/21/24 08:30 10/21/24 08:30 FiO2 61 10/20/24 06:40 Oxygen Flow Rate (L/min) 4 Oxygen Delivery Method Nasal Cannula Weight: 83.2 kg Body Mass Index (BMI) 25.7 Intake & Output: Intake and Output for Last 24 Hours 10/19/24 10/20/24 10/21/24 23:59 23:59 23:59 Intake Total 2000.00 / 2300.00 950 / 1450 1050 / 1050 Output Total 500 / 1500 5930 / 5930 Balance 1500.00 / 800.00 -4980 / -4480 1050 / 1050 Lab / Micro Data 10/21/24 06:05 10/21/24 06:05 Labs: Laboratory Results - last 24 hr 10/21/24 06:05: WBC 10.3, RBC 3.07 L, Hgb 9.5 L, Hct 28.1 L, MCV 91.5, MCH 30.9, MCHC 33.8, RDW Std Deviation 46.7 H, RDW Coeff of Marcella 14.1, Plt Count 195, MPV 9.4, Immature Gran % (Auto) 0.600, Neut % (Auto) 81.1 H, Lymph % (Auto) 8.6 L, [place] % (Auto) 6.9, Eos % (Auto) 2.2, Baso % (Auto) 0.6, Absolute Neuts (auto) 8.3 H, Absolute Lymphs (auto) 0.88, Nucleated RBC % 0 Physical Exam Narrative General: Alert and oriented x3, NAD. Cardiovascular: Normal S1, S2. No rubs, murmurs, or gallops. Respiratory: Decreased breath sound at bases. Abdomen: Normal bowel sounds, soft, nontender, no guarding or rebound, no organomegaly. Extremities: No clubbing, cyanosis, or edema. Assessment & Plan Assessment/Plan (1) ESRD (end stage renal disease) on dialysis: PLAN: Plan Impression/Plan: The patient is a 44-year-old male with past history of ESRD, type 1 diabetes mellitus, hypertension, CAD status post PCI, and hyperlipidemia. Patient presented to the hospital on 10/19/2024 with dyspnea. Patient was admitted to the hospital for treatment of acute hypoxic respiratory failure attributed to possible community-acquired pneumonia. Nephrology is asked to see the patient because of ESRD and need for dialysis management. ESRD. Patient usually dialyzes on [facility] schedule at [facility]. Patient was not dialyzed on 10/18/2024 prior to admission. Patient was successfully dialyzed yesterday on 10/20/2024. Patient is still volume up compared to his baseline. Therefore, we will dialyze patient again today with more ultrafiltration (if BP will tolerate). Plan is to keep patient on his home hemodialysis schedule, so he will be dialyzed again tomorrow if he is not yet discharged. Nephrology plan was discussed with Dr. Emerson
[2024-10-21 08:42] LABS: Anion Gap 19 (5-15); BUN 69 mg/dL (4-19); BUN/Creat Ratio 8.5 RATIO (10-20); Calcium,Total 9.2 mg/dL (7.6-11.0); Carbon Dioxide 20.3 mmol/L (21.0-32.0); Chloride 92 mmol/L (98-108); Estimated Creatinine Clearance 12.62 ml/min (50-250); Glucose 269 mg/dL (70-99); Potassium 5.0 mmol/L (3.3-5.1)
[2024-10-21] MEDS: PureFlow B 2K Dialysis Soln 1 BAG 6 BAG PF (09:42)
[2024-10-21] MEDS: 0.9% Normal Saline 1,000 ML IV.SOLN. 1000 ML OPERA.SITE (09:43)
[2024-10-21] MEDS: Aspirin E.C. 81 MG Tablet PO (14:24)
[2024-10-21] MEDS: Cholecalciferol (Vit D3) 125 MCG CAPSULE (5,000 UNITS) PO (14:25)
--- NOTE | 2024-10-21 20:32 | PN.HOSP_ITS ---
Reason for Visit Chief Complaint: Shortness of breath Subjective Subjective Patient was seen and examined today, he is undergoing dialysis today, he remains on oxygen of 4 L. Patient is refusing aerosol treatments at this time so I discontinued them. I will obtain a chest x-ray on the patient tomorrow, he will undergo dialysis again tomorrow. Patient's white blood cell count today was normal. Hemoglobin was 9.5. Objective Data Objective Data Vital Signs: Vital Signs Temp Pulse Resp BP Pulse Ox O2 Del Method O2 Flow Rate 97.8 F 97 100 H 127/72 H 2 Nasal Cannula 4 10/21/24 13:30 10/21/24 13:30 10/21/24 13:30 10/21/24 13:30 10/21/24 13:30 10/21/24 14:00 10/21/24 14:00 FiO2 61 10/20/24 06:40 Oxygen Flow Rate (L/min) 4 Oxygen Delivery Method Nasal Cannula Weight: 81 kg Body Mass Index (BMI) 25.0 Intake & Output: Intake and Output for Last 24 Hours 10/19/24 10/20/24 10/21/24 23:59 23:59 23:59 Intake Total 2000.00 / 2300.00 950 / 1450 1700 / 1700 Output Total 500 / 1500 5930 / 5930 2700 / 2700 Balance 1500.00 / 800.00 -4980 / -4480 -1000 / -1000 Lab / Micro Data 10/22/24 07:48 10/22/24 07:48 Labs: Laboratory Results - last 24 hr 10/21/24 06:05: WBC 10.3, RBC 3.07 L, Hgb 9.5 L, Hct 28.1 L, MCV 91.5, MCH 30.9, MCHC 33.8, RDW Std Deviation 46.7 H, RDW Coeff of Marcella 14.1, Plt Count 195, MPV 9.4, Immature Gran % (Auto) 0.600, Neut % (Auto) 81.1 H, Lymph % (Auto) 8.6 L, [place] % (Auto) 6.9, Eos % (Auto) 2.2, Baso % (Auto) 0.6, Absolute Neuts (auto) 8.3 H, Absolute Lymphs (auto) 0.88, Nucleated RBC % 0, Sodium 131 L, Potassium 5.0, Chloride 92 L, Carbon Dioxide 20.3 L, Anion Gap 19 H, BUN 69 H, Creatinine 8.12 H*, Estim Creat Clear Calc 12.62 L, Est GFR (MDRD) Non-Af 8 L, B UN/Creatinine Ratio 8.5 L, Glucose 269 H, Calcium 9.2 10/21/24 08:14: POC Glucose 348 H 10/21/24 10:54: POC Glucose 303 H Micro: Microbiology 10/19/24 02:36 Urine, Clean Catch Urine Culture - Final GPC Poss Enterococcus sp Mixed Gram Positive Organisms 10/19/24 02:36 Blood Culture (Wb) - Anticubital Right Blood Culture - Preliminary No growth in 48 hours. 10/19/24 01:42 Blood Culture (Wb) - Anticubital Right Blood Culture - Preliminary No growth in 48 hours. Physical Exam Narrative alert, oriented x3, no apparent distress, average body habitus and healthy appearing General Appearance: cooperative, well kempt and well developed Orientation / Consciousness: awake, oriented to person, oriented to place and oriented to time HEENT normocephalic, head/scalp atraumatic and moist oral mucous membranes Eyes PERRL, EOMs intact bilaterally and conjunctivae normal Neck supple, no JVD, thyroid normal and no carotid bruits General: trachea midline Resp normal respiratory effort, no retractions, no use of accessory muscles and clear to auscultation bilaterally Auscultation: Negative for rales, rhonchi or wheezes Cardio regular rate, regular rhythm, S1 normal heart sound, S2 normal heart sound, no murmurs, no rub and no gallops GI normal to inspection, nondistended, normoactive bowel sounds, soft to palpation, non-tender and non-distended Extremity no clubbing, cyanosis or edema Skin no rashes or lesions noted General Skin Exam: no breakdown Neuro oriented x3, CN's II-XII intact bilaterally, moves all extremities, no focal motor deficits and no sensory deficits noted Sensorium / Orientation: awake and alert Speech: speech normal Psych affect normal Assessment & Plan Assessment/Plan (1) Pneumonia: (2) ESRD (end stage renal disease) on dialysis: PLAN: Plan 1. Community-acquired pneumonia-continue Zithromax and Rocephin #2 end-stage renal disease on dialysis-patient will be dialyzed tomorrow #3 type 1 diabetes-patient will remain on his current insulin, sliding scale insulin will be administered as needed #4 coronary artery disease-stable at this time, he remains on his outpatient medication #5 hypoxia secondary to #1 and fluid overload from #2-pulse ox will be monitored, patient is currently on nasal cannula oxygen, chest x-ray will be obtained tomorrow #6 hyperlipidemia-patient is on statin #7 essential hypertension-patient is on amlodipine Total clinical time spent by myself addressing patient's medical issues, reviewing all of his data, and collaborating with the patient's care team: 35 minutes Charges/Coding Visit Charges Inpatient E&M: 50899 Subs Hosp L2
[2024-10-21] MEDS: 0.9% Saline Lock 10 ML Syringe IV (22:06)
[2024-10-21] MEDS: Azithromycin 500 MG in 0.9% Normal Saline (250mL Bag) 250 ML 250 MG IV (22:39)
[2024-10-22] VITALS (20 sets, daily range): BP systolic 86–159; BP diastolic 53–95; PULSE 73–85; RESP 16–18; TEMP 36.6–36.7; O2SAT 85–100; BMI 25.0; BMI 26.5; BMI 24.0
[2024-10-22 08:02] LABS: Hematocrit 28.2 % (40-54); Hemoglobin 9.6 g/dL (13.0-16.5); Immature Granulocytes Count 0.020 X10^3/uL (0.0-0.0); Mean Corp Hgb Conc 34.0 g/dL (32-36); Mean Corpuscular Volume 89.2 fL (80-94); Mean Platelet Vol. 9.2 fl (6.2-12.0); NRBC Flagged by Analyzer 0 % (0-5); Platelet Count 237 K/mm3 (150-450); RBC Distribution Width CV 13.9 % (11.6-14.6); RBC Distribution Width SD 45.6 fl (35.1-43.9); Red Blood Count 3.16 M/mm3 (4.6-6.2); White Blood Count 6.9 K/mm3 (4.4-11.0)
--- NOTE | 2024-10-22 08:05 | RAD_ITS ---
EXAM: XR Chest, 2 Views CLINICAL INDICATION: PNEUMONIA TECHNIQUE: Frontal and lateral views of the chest. COMPARISON: No relevant prior studies available. FINDINGS: LUNGS AND PLEURAL SPACES: Unremarkable. No consolidation. No pneumothorax. HEART: Unremarkable. No cardiomegaly. MEDIASTINUM: Unremarkable. Normal mediastinal contour. BONES/JOINTS: Unremarkable. No acute fracture. RAD/Chest PA and Lateral IMPRESSION: No acute cardiopulmonary process. Reading [facility]
[2024-10-22 08:20] LABS: Albumin, Serum 3.7 g/dL (3.5-5.0); Anion Gap 16 (5-15); BUN 66 mg/dL (4-19); BUN/Creat Ratio 9.7 RATIO (10-20); Calcium,Total 9.5 mg/dL (7.6-11.0); Carbon Dioxide 22.5 mmol/L (21.0-32.0); Chloride 95 mmol/L (98-108); Estimated Creatinine Clearance 14.96 ml/min (50-250); Glucose 190 mg/dL (70-99); Potassium 4.0 mmol/L (3.3-5.1)
[2024-10-22] MEDS: Aspirin E.C. 81 MG Tablet PO (08:20)
[2024-10-22] MEDS: SEVELAMER CARBONATE 800 MG TABLET PO (08:20)
[2024-10-22] MEDS: Cholecalciferol (Vit D3) 125 MCG CAPSULE (5,000 UNITS) PO (08:21)
--- NOTE | 2024-10-22 08:34 | PCM.PN.REN ---
Objective Data Objective Data Vital Signs: Vital Signs Temp Pulse Resp BP Pulse Ox O2 Del Method O2 Flow Rate 97.9 F 85 18 159/92 H 95 Room Air 2 10/22/24 03:55 10/22/24 03:55 10/22/24 03:55 10/22/24 03:55 10/22/24 03:55 10/22/24 07:53 10/22/24 01:05 FiO2 61 10/20/24 06:40 Oxygen Flow Rate (L/min) 2 Oxygen Delivery Method Room Air Weight: 81 kg Body Mass Index (BMI) 25.0 Intake & Output: Intake and Output for Last 24 Hours 10/20/24 10/21/24 10/22/24 23:59 23:59 23:59 Intake Total 950 / 1450 1750 / 1750 250 / 250 Output Total 5930 / 5930 2700 / 2700 700 / 700 Balance -4980 / -4480 -950 / -950 -450 / -450 Lab / Micro Data 10/22/24 07:48 10/22/24 07:48 Labs: Laboratory Results - last 24 hr 10/21/24 06:05: Sodium 131 L, Potassium 5.0, Chloride 92 L, Carbon Dioxide 20.3 L, Anion Gap 19 H, BUN 69 H, Creatinine 8.12 H*, Estim Creat Clear Calc 12.62 L, Est GFR (MDRD) Non-Af 8 L, BUN/Creatinine Ratio 8.5 L, Glucose 269 H, Calcium 9.2 10/21/24 08:14: POC Glucose 348 H 10/21/24 10:54: POC Glucose 303 H 10/22/24 07:48: WBC 6.9, RBC 3.16 L, Hgb 9.6 L, Hct 28.2 L, MCV 89.2, MCH 30.4, MCHC 34.0, RDW Std Deviation 45.6 H, RDW Coeff of Marcella 13.9, Plt Count 237, MPV 9.2, Immature Gran % (Auto) 0.300, Neut % (Auto) 73.1 H, Lymph % (Auto) 14.1 L, [place] % (Auto) 9.4, Eos % (Auto) 2.5, Baso % (Auto) 0.6, Absolute Neuts (auto) 5.0, Absolute Lymphs (auto) 0.97, Nucleated RBC % 0, Sodium 134, Potassium 4.0, Chloride 95 L, Carbon Dioxide 22.5, Anion Gap 16 H, BUN 66 H, Creatinine 6.85 H, Estim Creat Clear Calc 14.96 L, Est GFR (MDRD) Non-Af 10 L, BUN/Creatinine Ratio 9.7 L, Glucose 190 H, Calcium 9.5, Phosphorus 5.3 H, Albumin 3.7 Micro: Microbiology 10/19/24 02:36 Urine, Clean Catch Urine Culture - Final GPC Poss Enterococcus sp Mixed Gram Positive Organisms 10/19/24 02:36 Blood Culture (Wb) - Anticubital Right Blood Culture - Preliminary No growth in 48 hours. 10/19/24 01:42 Blood Culture (Wb) - Anticubital Right Blood Culture - Preliminary No growth in 48 hours. Physical Exam Narrative General: Alert and oriented x3, NAD. Cardiovascular: Normal S1, S2. No rubs, murmurs, or gallops. Respiratory: Decreased breath sound at bases. Abdomen: Normal bowel sounds, soft, nontender, no guarding or rebound, no organomegaly. Extremities: No clubbing, cyanosis, or edema. Assessment & Plan Assessment/Plan (1) ESRD (end stage renal disease) on dialysis: PLAN: Plan Impression/Plan: The patient is a 44-year-old male with past history of ESRD, type 1 diabetes mellitus, hypertension, CAD status post PCI, and hyperlipidemia. Patient presented to the hospital on 10/19/2024 with dyspnea. Patient was admitted to the hospital for treatment of acute hypoxic respiratory failure attributed to possible community-acquired pneumonia. Nephrology is asked to see the patient because of ESRD and need for dialysis management. ESRD. Patient usually dialyzes on MTuThF schedule at [facility]. Patient was not dialyzed on 10/18/2024 prior to admission. Patient was successfully dialyzed yesterday on 10/20/2024. Patient is still volume up compared to his baseline. Therefore, we will dialyze patient again today with more ultrafiltration (if BP will tolerate). Plan is to keep patient on his home hemodialysis schedule, so he will be dialyzed again tomorrow if he is not yet discharged. Nephrology plan was discussed with Dr. Emerson
--- NOTE | 2024-10-22 09:02 | PCM.PN.REN ---
Subjective Subjective Following for ESRD. Patient feels better overall. He denies CP, nausea or diarrhea. Dyspnea is better. Objective Data Objective Data Vital Signs: Vital Signs Temp Pulse Resp BP Pulse Ox O2 Del Method O2 Flow Rate 97.9 F 85 18 159/92 H 95 Room Air 2 10/22/24 03:55 10/22/24 03:55 10/22/24 03:55 10/22/24 03:55 10/22/24 03:55 10/22/24 07:53 10/22/24 01:05 FiO2 61 10/20/24 06:40 Oxygen Flow Rate (L/min) 2 Oxygen Delivery Method Room Air Weight: 81 kg Body Mass Index (BMI) 25.0 Intake & Output: Intake and Output for Last 24 Hours 10/20/24 10/21/24 10/22/24 23:59 23:59 23:59 Intake Total 950 / 1450 1750 / 1750 250 / 250 Output Total 5930 / 5930 2700 / 2700 700 / 700 Balance -4980 / -4480 -950 / -950 -450 / -450 Lab / Micro Data 10/22/24 07:48 10/22/24 07:48 Labs: Laboratory Results - last 24 hr 10/21/24 10:54: POC Glucose 303 H 10/22/24 07:48: WBC 6.9, RBC 3.16 L, Hgb 9.6 L, Hct 28.2 L, MCV 89.2, MCH 30.4, MCHC 34.0, RDW Std Deviation 45.6 H, RDW Coeff of Marcella 13.9, Plt Count 237, MPV 9.2, Immature Gran % (Auto) 0.300, Neut % (Auto) 73.1 H, Lymph % (Auto) 14.1 L, [place] % (Auto) 9.4, Eos % (Auto) 2.5, Baso % (Auto) 0.6, Absolute Neuts (auto) 5.0, Absolute Lymphs (auto) 0.97, Nucleated RBC % 0, Sodium 134, Potassium 4.0, Chloride 95 L, Carbon Dioxide 22.5, Anion Gap 16 H, BUN 66 H, Creatinine 6.85 H, Estim Creat Clear Calc 14.96 L, Est GFR (MDRD) Non-Af 10 L, BUN/Creatinine Ratio 9.7 L, Glucose 190 H, Calcium 9.5, Phosphorus 5.3 H, Albumin 3.7 Micro: Microbiology 10/19/24 02:36 Urine, Clean Catch Urine Culture - Final GPC Poss Enterococcus sp Mixed Gram Positive Organisms 10/19/24 02:36 Blood Culture (Wb) - Anticubital Right Blood Culture - Preliminary No growth in 48 hours. 10/19/24 01:42 Blood Culture (Wb) - Anticubital Right Blood Culture - Preliminary No growth in 48 hours. Radiography Diagnostic Testing: Radiology Impression Chest X-Ray 10/22/24 08:05 IMPRESSION: No acute cardiopulmonary process. Reading Location: [facility] Physical Exam Narrative General: Alert and oriented x3, NAD. Cardiovascular: Normal S1, S2. No rubs, murmurs, or gallops. Respiratory: CTAB Abdomen: Normal bowel sounds, soft, nontender, no guarding or rebound, no organomegaly. Extremities: No clubbing, cyanosis, or edema. Assessment & Plan Assessment/Plan (1) ESRD (end stage renal disease) on dialysis: PLAN: Plan Impression/Plan: The patient is a 44-year-old male with past history of ESRD, type 1 diabetes mellitus, hypertension, CAD status post PCI, and hyperlipidemia. Patient presented to the hospital on 10/19/2024 with dyspnea. Patient was admitted to the hospital for treatment of acute hypoxic respiratory failure attributed to possible community-acquired pneumonia. Nephrology is asked to see the patient because of ESRD and need for dialysis management. ESRD. Patient usually dialyzes on MTuThF schedule at [facility]. Patient was not dialyzed on 10/18/2024 prior to admission. Patient was successfully dialyzed yesterday on 10/21/2024. Will dialyze patient again today on his usual schedule. We can cut back on ultrafiltration today since we have removed over 6 L of fluid in the last 2 days. Plan is to keep patient on his home hemodialysis schedule, so he will be dialyzed again on 10/25/2024 if he is not yet discharged Nephrology plan was discussed with Dr. Emerson
[2024-10-22] MEDS: PureFlow B 2K Dialysis Soln 1 BAG 6 BAG PF (09:58)
[2024-10-22] MEDS: 0.9% Normal Saline 1,000 ML IV.SOLN. 1000 ML OPERA.SITE (10:03)
--- NOTE | 2024-10-22 12:59 | PCM.DC ---
Discharge Instructions DC O2, CPAP, BIPAP needs Home O2 Discharge instructions: No Dressing / Incision Discharge Activity: Return to Normal Activity Weight Bearing Status: Full weight bearing Follow Up Care Test Results: Test results from this visit will be discussed in further detail at your follow-up appointment, if applicable. Discharge Plan Admission Admit Date/Time: 10/19/24 03:37 Primary Reason for Your Visit: Pneumonia, end-stage renal failure, hypoxia Attending Provider: Chris Emerson Primary Care Provider: Kristal Luke Consulting Providers: Daisy Diaz; Chava Naik Instructions Additional Instructions / Restrictions: Start azithromycin today Discharge Orders/Prescriptions Prescriptions: New azithromycin [Zithromax] 500 mg tablet 500 mg PO DAILY 3 Days Qty: 3 0RF Continued clopidogrel 75 mg tablet 75 mg PO DAILY Qty: 90 3RF aspirin 81 mg tablet,delayed release (DR/EC) 81 mg PO BREAKFAST Qty: 90 3RF rosuvastatin 10 mg tablet 10 mg PO DAILY Qty: 90 1RF cholecalciferol (vitamin D3) 50 mcg (2,000 unit) capsule 150 mcg PO DAILY sevelamer carbonate 800 mg tablet 800 mg PO DAILY Rx Instructions: must administer with a meal/food carvedilol 25 mg tablet 25 mg PO QDAY Rx Instructions: must administer with a meal/food pantoprazole 40 mg tablet,delayed release (DR/EC) 40 mg PO BID Qty: 180 1RF Rx Instructions: take 30 minutes before breakfast and dinner amlodipine 5 mg tablet 10 mg PO DAILY Qty: 90 3RF (DME) Dexcom G6 Sensor Device See Rx Instructions .Route Qty: 9 1RF Rx Instructions: 1 sensor q 10 days (DME) Dexcom G6 Transmitter Device See Rx Instructions .Route Qty: 1 1RF Rx Instructions: 1 q 90 days insulin aspart U-100 [Novolog U-100 Insulin aspart] 100 unit/mL solution 80 unit continuous subcutaneous infusion .continuous Qty: 72 1RF (DME) Omnipod 5 G6-G7 Pods (Gen 5) Cartridge See Rx Instructions .Route Qty: 30 1RF Rx Instructions: change every 3 days Referrals / Follow Up: Kristal Luke MD [Primary Care Provider] - Within 1 Month Disposition Disposition (needs filled in before D/C Order can be placed): Home, Self Care
--- NOTE | 2024-10-22 13:06 | DS.PCM_ITS ---
Providers Date of Admission: 10/19/24 Date of Discharge: 10/22/24 Primary Care Physician: Dr. Kristal Luke MD Consultations 10/19/24 04:13 Consult: Nephrology Routine Consulting Provider: Daisy Diaz Reason for Consult: Dialysis EMERGENT Consult: No MD Notified: Yes Date Notified: 10/19/24 Time Notified: 04:57 Method of Notification: Answering Service Reason For Visit: PNEUMONIA, HYPOXIC RESPIRATORY FAILURE, END-STAGE Diagnosis Discharge Diagnosis (1) ESRD (end stage renal disease) on dialysis: Status: Acute Code(s): N18.6 - End stage renal disease; Z99.2 - Dependence on renal dialysis Plan 1. Community-acquired pneumonia-continue Zithromax and Rocephin #2 end-stage renal disease on dialysis-patient will be dialyzed tomorrow #3 type 1 diabetes-patient will remain on his current insulin, sliding scale insulin will be administered as needed #4 coronary artery disease-stable at this time, he remains on his outpatient medication #5 hypoxia secondary to #1-pulse ox will be monitored, patient is currently on nasal cannula oxygen #6 hyperlipidemia-patient is on statin #7 essential hypertension-patient is on amlodipine Total clinical time spent by myself addressing patient's medical issues, reviewing all of his data, and collaborating with the patient's care team: 35 minutes Medications at Discharge Home Medications aspirin 81 mg tablet,delayed release 81 mg PO BREAKFAST #90 tabs 02/25/24 clopidogrel 75 mg tablet 75 mg PO DAILY #90 tabs 02/25/24 rosuvastatin 10 mg tablet 10 mg PO DAILY #90 tabs 02/25/24 sevelamer carbonate 800 mg tablet 800 mg PO DAILY kidneys 06/18/24 blood-glucose sensor (Dexcom G6 Sensor device) #9 ea 07/23/24 blood-glucose transmitter (Dexcom G6 Transmitter device) #1 ea 07/23/24 cholecalciferol (vitamin D3) 50 mcg (2,000 unit) capsule 150 mcg PO DAILY dietary supplement 07/28/24 amlodipine 5 mg tablet 10 mg (2 x 5 mg) PO DAILY #90 tabs 08/11/24 insulin aspart U-100 100 unit/mL subcutaneous solution (Novolog U-100 Insulin aspart) 80 unit (0.8 mL) continuous subcutaneous infusion .continuous #72 mL 08/20/24 carvedilol 25 mg tablet 25 mg PO QDAY heart 09/07/24 pantoprazole 40 mg tablet,delayed release 40 mg PO BID #180 tabs 09/07/24 insulin pump cart,auto,BT,G6/7 (Omnipod 5 G6-G7 Pods (Gen 5) subcutaneous cartridge) #30 ea 09/27/24 azithromycin 500 mg tablet (Zithromax) 500 mg PO DAILY 3 days #3 tabs 10/22/24 Hospital Course Operations None Procedures Dialysis Summary of Care Provided Minutes Spent on Discharge: 31 Hospital Course: This 44-year-old white male was seen in the emergency room at [facility] with a chief complaint of shortness of breath and malaise. Patient is a chronic dialysis patient and missed his dialysis session the day he was in the ER because he was not feeling well. Patient complained that the day before he went to [employer] and worked out and noticed his glucose was running high or his meter was not detecting the blood sugar level. Patient states that if he lies down he feels short of breath. He was placed on oxygen in the emergency room to maintain his pulse ox above 90%. Labs were obtained, patient had a leukocytosis of 19,000, creatinine was 9.78 and BUN was 104. Glucose was 118. Patient's chest x-ray revealed bilateral lung opacities which could represent asymmetric edema as well as pneumonia. Patient was given IV antibiotics and admitted to PCU, he was seen in consultation by nephrology and underwent dialysis for several days with removal of quite a bit of fluid. Patient was kept on IV antibiotics during his hospitalization, his hypoxia was improved and he was weaned off oxygen at the time of discharge from the hospital. On 10/22/2024, patient was seen and examined: On examination he appeared in good health and spirits. Vital signs as documented. Skin warm and dry and without overt rashes. Neck without JVD, neck was supple, trachea midline, thyroid was normal. Lungs clear bilaterally, normal air movement was noted. Heart exam notable for regular rhythm, normal sounds and absence of murmurs, rubs or gallops. Abdomen unremarkable and without evidence of organomegaly, masses, or abdominal aortic enlargement. Bowel sounds are present, abdomen is not distended. Extremities nonedematous, no cyanosis was noted, no clubbing was noted. Neuro: Cranial nerves II through XII are grossly intact, no focal motor deficits were noted, sensation to light touch and pinprick intact, motor exam 5/5 throughout. Psych: Patient is alert and oriented x3, he does not appear anxious or depressed, he does not appear agitated. Patient was discharged home in stable condition on 10/22/2024. Weight / BMI Weight Weight: 78.1 kg Body Mass Index (BMI) 24.0 ABG / Lab / Microbiology Data 10/22/24 07:48 10/22/24 07:48 Laboratory: Laboratory Results - last 24 hr 10/22/24 07:48: WBC 6.9, RBC 3.16 L, Hgb 9.6 L, Hct 28.2 L, MCV 89.2, MCH 30.4, MCHC 34.0, RDW Std Deviation 45.6 H, RDW Coeff of Marcella 13.9, Plt Count 237, MPV 9.2, Immature Gran % (Auto) 0.300, Neut % (Auto) 73.1 H, Lymph % (Auto) 14.1 L, [place] % (Auto) 9.4, Eos % (Auto) 2.5, Baso % (Auto) 0.6, Absolute Neuts (auto) 5.0, Absolute Lymphs (auto) 0.97, Nucleated RBC % 0, Sodium 134, Potassium 4.0, Chloride 95 L, Carbon Dioxide 22.5, Anion Gap 16 H, BUN 66 H, Creatinine 6.85 H, Estim Creat Clear Calc 14.96 L, Est GFR (MDRD) Non-Af 10 L, BUN/Creatinine Ratio 9.7 L, Glucose 190 H, Calcium 9.5, Phosphorus 5.3 H, Albumin 3.7 Microbiology: Microbiology 10/19/24 02:36 Urine, Clean Catch Urine Culture - Final GPC Poss Enterococcus sp Mixed Gram Positive Organisms 10/19/24 02:36 Blood Culture (Wb) - Anticubital Right Blood Culture - Preliminary No growth in 48 hours. 10/19/24 01:42 Blood Culture (Wb) - Anticubital Right Blood Culture - Preliminary No growth in 48 hours. Radiography Diagnostic Testing: Radiology Impression Chest X-Ray 10/22/24 08:05 IMPRESSION: No acute cardiopulmonary process. Reading [facility] Instructions Weight Bearing Status: Full weight bearing DC O2, CPAP, BIPAP Needs Home O2 Discharge instructions: No Meaningful Use Info Meaningful Use Meaningful Use Diagnoses (Choose all that apply): None applicable Discharge Plan Admission Admit Date/Time: 10/19/24 03:37 Primary Reason for Your Visit: Pneumonia, end-stage renal failure, hypoxia Attending Provider: Chris Emerson Primary Care Provider: Kristal Luke Consulting Providers: Daisy Diaz; Chava Naik Instructions Additional Instructions / Restrictions: Start azithromycin today Discharge Orders/Prescriptions Prescriptions: New azithromycin [Zithromax] 500 mg tablet 500 mg PO DAILY 3 Days Qty: 3 0RF Continued clopidogrel 75 mg tablet 75 mg PO DAILY Qty: 90 3RF aspirin 81 mg tablet,delayed release (DR/EC) 81 mg PO BREAKFAST Qty: 90 3RF rosuvastatin 10 mg tablet 10 mg PO DAILY Qty: 90 1RF cholecalciferol (vitamin D3) 50 mcg (2,000 unit) capsule 150 mcg PO DAILY sevelamer carbonate 800 mg tablet 800 mg PO DAILY Rx Instructions: must administer with a meal/food carvedilol 25 mg tablet 25 mg PO QDAY Rx Instructions: must administer with a meal/food pantoprazole 40 mg tablet,delayed release (DR/EC) 40 mg PO BID Qty: 180 1RF Rx Instructions: take 30 minutes before breakfast and dinner amlodipine 5 mg tablet 10 mg PO DAILY Qty: 90 3RF (DME) Dexcom G6 Sensor Device See Rx Instructions .Route Qty: 9 1RF Rx Instructions: 1 sensor q 10 days (DME) Dexcom G6 Transmitter Device See Rx Instructions .Route Qty: 1 1RF Rx Instructions: 1 q 90 days insulin aspart U-100 [Novolog U-100 Insulin aspart] 100 unit/mL solution 80 unit continuous subcutaneous infusion .continuous Qty: 72 1RF (DME) Omnipod 5 G6-G7 Pods (Gen 5) Cartridge See Rx Instructions .Route Qty: 30 1RF Rx Instructions: change every 3 days Referrals / Follow Up: Kristal Luke MD [Primary Care Provider] - 10/26/24 11:20 am Disposition Disposition (needs filled in before D/C Order can be placed): Home, Self Care Charges/Coding Visit Charges Inpatient E&M: 09759 Disch Hosp >30min
--- NOTE | 2024-10-22 13:52 | CASEMGMT ---
Patient has order for discharge. RN CM in to discuss needs at discharge. Patient denies need or help at discharge. Patient had no further questions or concerns. RN CM called [facility] and updated that patient is discharging and will be in center on Friday
== END 2024-10-22 15:33 | disposition home or self-care (01) ==
LOC: ED 03:22 → PCU 03:27
PROVIDERS: Internal Medicine Nephrology; Admitting Provider Family Medicine; Emergency Provider Emergency Medicine; PCP Internal Medicine; Visit Provider Internal Medicine
DX: J18.9 Pneumonia, unspecified organism (principal); I13.2 Hypertensive heart and chronic kidney disease with heart failure and with stage 5 chronic kidney disease, or end stage renal disease; N18.6 End stage renal disease; J96.01 Acute respiratory failure with hypoxia; I50.9 Heart failure, unspecified; Z79.4 Long term (current) use of insulin; E10.65 Type 1 diabetes mellitus with hyperglycemia; E10.22 Type 1 diabetes mellitus with diabetic chronic kidney disease; E78.00 Pure hypercholesterolemia, unspecified; I25.10 Atherosclerotic heart disease of native coronary artery without angina pectoris; K21.9 Gastro-esophageal reflux disease without esophagitis; Z99.2 Dependence on renal dialysis; I25.2 Old myocardial infarction; Z79.82 Long term (current) use of aspirin; Z79.899 Other long term (current) drug therapy; Z79.02 Long term (current) use of antithrombotics/antiplatelets; Z95.5 Presence of coronary angioplasty implant and graft; Z96.41 Presence of insulin pump (external) (internal)
CPT/HCPCS: 36415; 71046; 80048; 80053; 80069; 81001; 82010; 82803; 82962; 83605; 85025; 85610; 85730; 87040; 87086; 87088; 90937; 93005; 94660; 94762; 96365; 96366; 96367; 96368; 96375; 96376; 99221; 99285; A4216; G0257; G0378; J0696; J1938; J2405

== ENCOUNTER 2024-12-31 00:39 | Emergency (ER) | payer MEDICAID, SELFPAY ==
[2024-12-31] VITALS (8 sets, daily range): BP systolic 121–154; BP diastolic 53–81; PULSE 95–107; RESP 12–19; TEMP 36.9–39; O2SAT 86–97; BMI 27.4
--- OUTSIDE RECORDS SUMMARY | 2024-12-31 01:06 | XMS RPT_ITS | CCD ---
Author Organization [facility] CliniSynj Care Team Providers Care Angle Shearer Name Role Phone Dr. Kristal Sullivan Primary [...] Attending Provider Dr. Laurie Elizalde Emergency Provider [phone] Louis Koehler Attending Provider Dr. Jordy Garcia Attending Provider Dr. Louis Koehler Admit Provider Dr. Louis Koehler Other Provider Dr. Daisy Diaz Other Provider Dr. Nelly Gross Attending Provider Dr. Nelly Gross Other Provider Kristal Sullivan MD Primary Care Provider Reid Ko MD Unavailable Reid Ko MD Unavailable Dr. Caleb Vargas Attending Provider Dr. Caleb Vargas Referring Provider Dr. 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 Kristal Sullivan MD Referring Provider Leonora PA, Thalia Attending Provider [phone] Leonora CASTREJON, Thalia Referring Provider [phone] Care Physician, No Primary Primary Care Provider Unavailable Rory LACEY, Dr. Ji Referring Provider Marly LACEY, Dr. Giraldo Primary Care Provider Rory LACEY, Dr. Ji Attending Provider [phone] Rory LACEY, Dr. Ji Other Provider [phone] Stan MUSA-CKendra Attending Provider Jillian CHIANG, Dr. Mccormick Emergency Provider Dr. Eugenia London DO Admit Provider Dr. Eugenia London DO Attending Provider Jillian CHIANG, Dr. Mccormick Emergency Provider Dr. Eugenia London DO Admit Provider Dr. Eugenia London DO Other Provider Rodo LACEY, Dr. Myers Attending Provider Emily LACEY, Dr. Villa Other Provider Rodo LACEY, Dr. Myers Other Provider Radha LACEY, Dr. Spence Attending Provider Elmer MUSA-Kalina Mendoza Attending Provider Dr. Kristal Sullivan MD Primary Care Provider Thalia Gerardo Attending Provider Dr. Kristal Sullivan MD Referring Provider Dr. Laurie Elizalde DO Emergency Provider Kristal Sullivan MD Primary Care Provider Dr. Laurie Elizalde DO Attending Provider Dr. Bao Angulo DO Attending Provider Dr. Bao Angulo DO Other Provider [phone] Pavan DIAMOND EXPERT-CLorraine Attending Provider [phone] NONE, PCP Referring Unavailable KRISTAL SULLIVAN Primary Care Unavailable MARIA LUZ TRUJILLO Admitting Unavailable MARIA LUZ TRUJILLO Attending Unavailable Elmer DIAMOND EXPERT-C, Kalina Referring Provider Marly LACEY, Dr. Girlado Primary Care Provider Rory LACEY, Dr. Ji Attending Provider [phone] Rory LACEY, Dr. Ji Referring Provider [phone] Rory LACEY, Dr. Ji Other Provider [phone] Stan DIAMOND EXPERT-CKendra Attending Provider Marly LACEY, Dr. Giraldo Referring Provider Thalia Gerardo Attending Provider [phone] Jillian CHIANG, Dr. Mccormick Emergency Provider [phone] Surya CHIANG, Dr. Bello Admit Provider Dr. Eugenia London DO Other Provider Rodo LACEY, Dr. Myers Attending Provider Emily LACEY, Dr. Villa Other Provider Dr. Louis Koehler MD Other Provider Radha LACEY, Dr. Spence Attending Provider [phone] Elmer DIAMOND EXPERT-C, Kalina Attending Provider Thalia Gerardo Referring Provider [phone] Laurie Elizalde DO Attending Provider Dr. Laurie Elizalde DO Emergency Provider Dr. Bao Angulo DO Attending Provider Dr. Bao Angulo DO Other Provider [phone] Pavan DIAMOND EXPERT-CLorraine Attending Provider [phone] Elmer DIAMOND EXPERT-CKalina Referring Provider Emily LACEY, Dr. Villa Attending Provider Dr. Ford Patricia DO Emergency Provider Heena LACEY, Dr. Larsen Admit Provider Heena LACEY, Dr. Larsen Attending Provider Heena LACEY, Dr. Larsen Other Provider Dr. Chris Emerson DO Attending Provider Dr. Chris Emerson DO Other Provider Dr. Sofi Gonzales MD Attending Provider GANTA, KRISTAL Primary Care Unavailable POGGIO, RONEN D Referring Unavailable GANTA, KRISTAL Primary Care Unavailable POGGIO, RONEN D Referring Unavailable GANTA, KRISTAL Primary Care Unavailable POGGIO, RONEN D Referring Unavailable GANTA, KRISTAL Primary Care Unavailable POGGIO, RONEN D Referring Unavailable GANTA, KRISTAL Primary Care Unavailable POGGIO, RONEN D Referring Unavailable GANTA, KRISTAL Primary Care Unavailable POGGIO, RONEN D Referring Unavailable GANTA, KRISTAL Primary Care Unavailable POGGIO, RONEN D Referring Unavailable GANTA, KRISTAL Primary Care Unavailable GANTA, KRISTAL Attending Unavailable GANTA, KRISTAL Primary Care Unavailable GANTA, KRISTAL Referring Unavailable GANTA, KRISTAL Primary Care Unavailable DUSTIN BEARD Referring Unavailable GANTA, KRISTAL Primary Care Unavailable GANTA, KRISTAL Attending Unavailable POGGIO, RONEN D Referring Unavailable GANTA, KRISTAL Primary Care Unavailable GANTA, KRISTAL Primary Care Unavailable POGGIO, RONEN D Referring Unavailable GANTA, KRISTAL Primary Care Unavailable POGGIO, RONEN D Referring Unavailable POGGIO, RONEN D Referring Unavailable GANTA, KRISTAL Primary Care Unavailable GANTA, KRISTAL Attending Unavailable GANTA, KRISTAL Primary Care Unavailable GANTA, KRISTAL Primary Care Unavailable POGGIO, RONEN D Referring Unavailable POGGIO, RONEN D Referring Unavailable GANTA, KRISTAL Primary Care Unavailable Emily, Jayaprakas Consulting Unavailable Ganta, Kristal Primary Care Unavailable Chava Naik Admitting Unavailable Chris Emerson Attending Unavailable Chava Naik Consulting Unavailable Ganta, Kristal Primary Care Unavailable Garrison Valadez Attending Unavailable Rory, Garrison Referring Unavailable Venkata Vargas Admitting Unavailable Venkata Vargas Consulting Unavailable Koram, Nelly Lorrie Attending Unavailable Care Physician, No Primary Primary Care Unava ilable Emily, Jayaprakas Consulting Unavailable Amro, Ahmed Consulting Unavailable Efren, Hussein Consulting Unavailable Napoles, Steve Consulting Unavailable Radha, Jordy Consulting Unavailable Kendall, Aris Consulting Unavailable Belal, Farouk Consulting Unavailable Lio Cross Consulting Unavailable Nagajothi, Nagapradee Consulting Unavailabl e [place], Micky Consulting Unavailable Nisa DIAMOND EXPERT, Romero H Consulting Unavailable Pavan MUSA, Lorraine Consulting Unavailable Vigren Enamorado Consulting Unavail able Garrison Joaquin Consulting Unavailable Caleb Yin Consulting Unavailable Lio Stout Consulting Unavailable [facility] Unavailable Louis Koehler Attending Unavailable Eugenia London Consulting Unavailable Eugenia London Admitting Unavailable Emily, Jayaprakas Consulting Unavailable Venkata Vargas Admitting Unavailable Care Physician, No Primary Primary Care Unava ilable Venkata Vargas Consulting Unavailable Natividad Borges Attending Unavailable Emily, Jayaprakas Consulting Unavailable Amro, Ahmed Consulting Unavailable Efren, Hussein Consulting Unavailable Napoles, Steve Consulting Unavailable Radha, Ripon Consulting Unavailable Kendall, Aris Consulting Unavailable Belal, Farouk Consulting Unavailable Lio Cross Consulting Unavailable Nagajothi, Nagapradee Consulting Unavailabl e [place], Micky Consulting Unavailable Nisa DIAMOND EXPERT, Romero H Consulting Unavailable Pavan DIAMOND EXPERT, Lorraine Consulting Unavailable Eliazar CASTREJON, Virgen Tan Consulting Unavail able Garrison Joaquin Consulting Unavailable Caleb Yin Consulting Unavailable Lio Stout Consulting Unavailable Ginny, Nelly Lorrie Consulting [facility]available [facility] Unavailable Garrison Valadez Attending Unavailable Thalia Lea Referring Unavailable Louis Koehler Attending Unavailable [facility] Unavailable Eugenia London Admitting Unavailable Eugenia London Consulting Unavailable Emily, Jayaprakas Consulting Unavailable Louis Koehler Consulting Unavailable Garrison Joaquin Attending Unavailable Nigel Carroll Consulting Unavailable Kahlil Escoto Consulting Unavailable Cipriano Ryan Consulting Unavailable Jaime Ramírez Consulting Unavailable Venkata Renee Consulting Unavailable Miguel Saunders Consulting Unavailable Abigail, Jerry Consulting Unavailable Liontebruce, Adalgisa Consulting Unavailab le Rufina, Barrington Consulting Unavailable Valverde, Nayan Consulting Unavailable Rosa, Sandra Consulting Unavailable Aljundi, Lamia Consulting Unavailable Deo, Mikael Consulting Unavailable Irukulla, Jefe Consulting Unavailable Arie, Benny Consulting Unavailable Diana Ibarra Consulting Unavailable Shaun, Sahil Consulting Unavailable Julian Bashir Consulting Unavailable Rodolfo Dockery Attending Unavailable Hussein Schwartz Attending Unavailable Care Physician, No Primary Primary Care Unava ilable Kendra Pierce Attending Unavailable Care Physician, No Primary Primary Care Unava ilable Care Physician, No Primary Primary Care Unava ilable Radha, Jordy Referring Unavailable Radha, Jordy Attending Unavailable Ganta, Kristal Primary Care Unavailable Garrison Valadez Attending Unavailable LeaAnthony colemanison Referring Unavailable Ganta, Kristal Primary Care Unavailable Kristi Murillo Attending Unavailable Ganta, Kristal Primary Care Unavailable Garrison Valadez Attending Unavailable Garrison Valadez Referring Unavailable Ganta, Kristal Primary Care Unavailable Laurie Elizalde Attending Unavailable Kalina Payne Referring Unavailable Kalina Payne Attending Unavailable Ganta, Kristal Primary Care Unavailable Eugenia London Attending Unavailable Koram, Nelly Lorrie Attending Unavailable Bao Angulo Attending Unavailable Koram, Nelly Lorrie Referring Unavailable Lio Stout Attending Unavailable Ganta, Kristal Primary Care Unavailable Chava Naik Consulting Unavailable Chava Naik Attending Unavailable Chava Naik Admitting Unavailable Emily, Jayaprakas Consulting Unavailable Ganta, Kristal Primary Care Unavailable Chava Naik Admitting Unavailable Chris Emerson Attending Unavailable Chava Naik Consulting Unavailable Chris Emerson Consulting Unavailable Radha, Ripon Attending Unavailable Venkata Vargas Attending Unavailable Ganta, Kristal Referring Unavailable Ganta, Kristal Primary Care Unavailable Thalia Lea Attending Unavailable Ganta, Kristal Referring Unavailable Ganta, Kristal Primary Care Unavailable Kendra Pierce Attending Unavailable Ganta, Kristal Referring Unavailable Ganta, Kristal Primary Care Unavailable Thalia Lea Attending Unavailable Kalina Payne Attending Unavailable Ganta, Kristal Primary Care Unavailable Ganta, Kristal Referring Unavailable Lorraine Browne NP Attending Unavailable Ganta, Kristal Referring Unavailable Ganta, Kristal Primary Care Unavailable Kalina Payne Attending Unavailable Ganta, Kristal Referring Unavailable Ganta, Kristal Primary Care Unavailable Kendra Pierce Attending Unavailable Care Physician, No Primary Referring Unava ilable Care Physician, No Primary Primary Care Unava ilable Virgen Enamorado Attending Unavail able Care Physician, No Primary Referring Unava ilable Care Physician, No Primary Primary Care Unava ilable Ganta, Kristal Primary Care Unavailable Rory, Garrison Referring Unavailable [place], Garrison Attending Unavailable Rory, Garrison Consulting Unavailable Ganta, Kristal Primary Care Unavailable Ganta, Kristal Referring Unavailable Friend, Bao Attending Unavailable Ganta, Kristal Primary Care Unavailable Lea, Thalia Attending Unavailable Lea, Thalia Referring Unavailable Emily, Jayaprakas Referring Unavailable Emily, Adenyaprakas Attending Unavailable Virgen Enamorado Consulting Unavail able Care Physician, No Primary Primary Care Unava ilable Ganta, Kristal Primary Care Unavailable Lea, Thalia Attending Unavailable Lea, Thalia Referring Unavailable Ganta, Kristal Referring Unavailable Ganta, Kristal Primary Care Unavailable Friend, Bao Attending Unavailable Friend, Bao Consulting Unavailable Ganta, Kristal Primary Care Unavailable Rory, Garrison Attending Unavailable Rory, Garrison Referring Unavailable [place], Garrison Consulting Unavailable Ganta, Kristal Referring Unavailable Ganta, Kristal Primary Care Unavailable Lea, Thalia Attending Unavailable Kalina Payne Attending Unavailable Ganta, Kristal Referring Unavailable Ganta, Kristal Primary Care Unavailable Ganta, Kristal Primary Care Unavailable Friend, Boa Attending Unavailable Kendra Pierce Attending Unavailable Care Physician, No Primary Referring Unava ilable Care Physician, No Primary Primary Care Unava ilable Emily, Jayaprakas Referring Unavailable Ganta, Kristal Primary Care Unavailable Rory, Garrison Attending Unavailable Virgen Enamorado Attending Unavail able Ganta, Kristal Primary Care Unavailable Care Physician, No Primary Referring Unava ilable Ganta, Kristal Primary Care Unavailable Ganta, Kristal Referring Unavailable Lea, Thalia Attending Unavailable Virgen Enamorado Referring Unavail able Ganta, Kristal Primary Care Unavailable [place], Garrison Attending Unavailable Ganta, Kristal Primary Care Unavailable Friend, Bao Attending Unavailable Emily, Adenyaprapradeeps Attending Unavailable Ganta, Kristal Primary Care Unavailable Allergies Allergy Classification Reported Allergen(s) Allergy Type Date of Onset Reaction(s) Facility (20 sources) Seasonal allergy; Translations: [SEASONAL ALLERGIES] Allergy to substance 11-17-2014 Intolerance [facility] Work Phone: Medications Current Medications Medication Drug Class(es) Dates Sig (Normalized) Sig (Original) amLODIPine 10 mg oral tablet (20 sources) Dihydropyridine Calcium Channel Zain Start: 08-23-2024 End: 10-28-2024 take 1 tablet by mouth once daily amLODIPine (Norvasc) 10 MG tablet Take 1 tablet (10 mg) by mouth daily. 30 tablet 1 08/29/2024 10/28/2024 Active Start: 02-25-2024 End: 08-11-2024 take 1 tablet by mouth once daily amLODIPine (NORVASC) 5 mg tablet Take 1 tablet by mouth once daily. 90 tablet 06/15/2024 Active Start: 02-25-2024 End: 08-11-2024 Start: 12-23-2022 End: 02-25-2024 amoxicillin 875 mg / clavulanate 125 mg oral tablet (1 source) Penicillin-class Antibacterial Start: 01-16-2020 take 875 mg by mouth every twelve hours Amoxicillin-Pot Clavulanate Active 875 MG PO Q12H January 16, 2020 12:16am aspirin 81 mg delayed release oral tablet (20 sources) Platelet Aggregation Inhibitor, Nonsteroidal Anti-inflammatory Drug Start: 01-31-2024 End: 10-28-2024 azithromycin 500 mg oral tablet (1 source) Macrolide Antimicrobial Start: 10-22-2024 Blood-Glucose Meter,Continuous (Dexcom G6 [employer]) misc (18 sources) Start: 04-01-2024 Blood-Glucose Meter,Continuous ([employer]ex[employer] G6 [employer]) misc Active 0 .Route April 01, 2024 11:49am As directed Start: 10-08-2021 End: 04-01-2024 Blood-Glucose Meter,Continuo us (Dex[employer] G6 [employer]) misc Discontinued 0 .Route October 08, 2021 12:00am April 01, 2024 11:50am As directed Start: 10-08-2021 Blood-Glucose Meter,Continuous ([employer] G6 [employer]) misc Active 0 .Route 1 Alyx 10th, 2022 11:00pm As directed Start: 10-08-2021 Blood-Glucose Meter,Continuous ([employer] G6 [employer]) misc Active 0 .Route October 08, 2021 [...] G6 Sensor) device Active 0 .Route 9 May 14, 2023 1:39pm 1 sensor q [...] G6 Sensor) device Discontinued 0 .Route October 08, 2021 12:00am May 03, 2022 1:25pm 1 sensor q 10 days Start: 10-08-2021 End: 05-03-2022 Blood-Glucose Sensor (Dexcom G6 Sensor) device Discontinued 0 .Route October 07, 2021 11:00pm May 03, 2022 12:25pm 1 sensor q 10 days Start: 10-08-2021 Blood-Glucose Sensor (Dexcom G6 Sensor) device Active 0 .Route October 08, 2021 12:00am 1 sensor q [...] G6 Transmitter) device Discontinued 0 .Route 1 January 16, 2024 12:28pm February 25, 2024 11:40am 1 q 90 days Start: 05-14-2023 End: 01-16-2024 Blood-Glucose Transmitter (D excom G6 Transmitter) device Discontinued 0 .Route 1 May 14, 2023 2:39pm January 16, 2024 12:28pm 1 q 90 days Start: 05-14-2023 Blood-Glucose Transmitter (Dexcom G6 Transmitter) device Active 0 .Route 1 May 14, 2023 2:39pm 1 q 90 days Start: 05-14-2023 Blood-Glucose Transmitter (Dexcom G6 Transmitter) device Active 0 .Route 1 May 14, 2023 1:39pm 1 q 90 days Start: 02-18-2023 End: 05-14-2023 Blood-Glucose Transmitter (D excom G6 Transmitter) device Discontinued 0 .Route 1 February 18, 2023 1:54pm May 14, 2023 2:39pm 1 q 90 days Start: 02-18-2023 End: 05-14-2023 Blood-Glucose Transmitter (D excom G6 Transmitter) device Discontinued 0 .Route February 18, 2023 12:54pm May 14, 2023 1:39pm 1 q 90 days Start: 05-03-2022 End: 02-18-2023 Blood-Glucose Transmitter (D excom G6 Transmitter) device Discontinued 0 .Route 1 May 03, 2022 1:25pm February 18, 2023 1:54pm 1 q 90 days Start: 05-03-2022 End: 02-18-2023 Blood-Glucose Transmitter (D excom G6 Transmitter) device Discontinued 0 .Route 1 May 03, 2022 12:25pm February 18, 2023 12:54pm 1 q 90 days Start: 04-10-2022 End: 05-03-2022 Blood-Glucose Transmitter (D excom G6 Transmitter) device Discontinued 0 .Route 1 April 10, 2022 10:42am May 03, 2022 [...] 08, 2021 12:00am 1 q 90 days Blood-Glucose,[employer]person [employer],Cont (Dex[employer] G6 [employer]) misc (14 sources) Start: 04-01-2024 Blood-Glucose,[employer],Cont ([employer] G6 [employer]) misc Active 0 .Route April 01, 2024 11:49am As directed Start: 10-08-2021 End: 04-01-2024 Blood-Glucose,[employer],Cont ([employer] G6 [employer]) misc Discontinued 0 .Route 1 October 08, 2021 12:00am April 01, 2024 11:50am As directed carvedilol 25 mg oral tablet (20 sources) alpha-Adrenergic Zain, beta-Adrenergic Zain Start: 09-07-2024 Start: 08-27-2024 End: 10-27-2024 take 1 tablet by mouth twice daily at mealtime carvedilol (Coreg) 25 MG tablet Take 1 tablet (25 mg) by mouth 2 times daily (with meals). 60 tablet 1 08/28/2024 10/27/2024 Active Start: 08-26-2024 End: 08-27-2024 take 12.5 mg by mouth twice daily at mealtime 12.5 mg, Oral, 2 times daily with meals, First dose on [facility] 08/26/24 at 0845 Start: 12-25-2020 End: 06-15-2024 take 1 tablet by mouth twice daily carvedilol (COREG) 12.5 mg tablet Take 1 tablet by mouth twice daily. 60 tablet 2 12/25/2020 06/15/2024 Discontinued Comment on above: Take 1 tablet by lily twice daily. cholecalciferol 0.05 mg oral capsule (20 sources) Vitamin D Start: 07-28-2024 Start: 07-28-2024 Cholecalcifero l (Vitamin D3) 50 mcg (2,000 unit) capsule Active 150 ug PO MOWEFR July 28, 2024 12:00am Start: 12-24-2022 End: 05-14-2023 Start: 07-03-2021 End: 10-08-2021 Start: 03-16-2019 End: 09-21-2024 take 1 capsule by mouth once daily Cholecalciferol, Vitamin D3, 125 mcg (5,000 unit) cap Take 1 capsule by mouth once daily. 30 capsule 4 06/23/2020 09/21/2024 Discontinued Comment on above: Take 1 capsule by mo [facility] once daily. clopidogrel 75 mg oral tablet (20 sources) P2Y12 Platelet Inhibitor Start: 01-31-2024 End: 10-28-2024 DEXCOM G6 SENSOR aiden (20 sources) Start: 06-03-2024 DEXCOM G6 SENSOR aiden [...] 01, 2021 12:35pm Start: 05-09-2013 End: 07-22-2014 MEDICAL SUPPLY (20 sources) Start: 04-26-2022 MEDICAL [...] DRINK 1 BOTTLE (237ML) twice a day 50287 mL 5 12/01/2020 Active Start: 07-17-2018 End: 12-01-2020 Nut.Tx.Gluc.Intol,Lac-Free,S oy (GLUCERNA SHAKE) liqd DRINK 1 BOTTLE (237ML) twice a day 50309 mL 5 07/17/2018 12/01/2020 Discontinued Comment on above: DRINK 1 BOTTLE (237M L) twice a day OMNIPOD 5 G6-G7 PODS, GEN 5, crtg (20 sources) Start: 05-06-2024 OMNIPOD 5 G6-G7 PODS, GEN 5, crtg 05/06/2024 Active pantoprazole 40 mg delayed release oral tablet (20 sources) Proton Pump Inhibitor Start: 08-17-2024 End: 09-07-2024 Start: 08-17-2024 End: 10-28-2024 take 1 tablet by mouth once daily in the morning Pantoprazole 40 mg tablet,delayed release (DR/EC) Discontinued 40 mg PO daily August 17, 2024 12:00am September 07, 2024 1:25pm take once every morning on an empty stomach Start: 01-31-2024 End: 04-23-2024 Start: 12-18-2015 End: 05-08-2020 take 1 tablet [...] Take 1 tablet by lily th once daily for 30 days. sevelamer carbonate 800 mg o ral tablet (20 sources) Phosphate Binder Start: 06-18-2024 Start: 05-24-2024 End: 05-19-2025 take 1 tablet by mouth three times daily at mealtime sevelamer carbonate (RENVELA) 800 mg tablet Take 800 mg by mouth three times a day with meals. 05/24/2024 05/19/2025 Active Zn Xqvniyb-Vdwczxsmufn-Qlv (AMERIGEL) gel (20 sources) Start: 03-05-2017 Zn Efzaiis-Devttdmwsjn-Isp (AMERIGEL) gel Apply 1 application to affected area twice daily. 3 Tube 1 03/05/2017 Active Comment on above: Apply 1 application to affected area twice daily. (20 sources) Start: 09-27-2024 Start: 08-17-2024 End: 08-31-2024 Start: 07-23-2024 Start: 07-23-2024 Start: 04-01-2024 End: 07-23-2024 Start: 04-01-2024 End: 10-19-2024 Start: 04-01-2024 Start: 04-01-2024 End: 09-27-2024 Start: 03-30-2024 End: 10-19-2024 Start: 03-30-2024 End: 10-19-2024 Start: 03-30-2024 Start: 02-25-2024 End: 04-01-2024 Start: 02-25-2024 End: 07-23-2024 Start: 02-25-2024 End: 04-01-2024 Start: 01-16-2024 End: 02-25-2024 Start: 01-16-2024 End: 02-25-2024 Start: 01-06-2024 End: 02-25-2024 Start: 07-14-2023 End: 01-16-2024 Start: 07-08-2023 End: 01-06-2024 Start: 05-14-2023 End: 07-14-2023 Start: 05-14-2023 End: 01-16-2024 Start: 02-18-2023 End: 05-14-2023 Start: 01-07-2023 End: 07-08-2023 Start: 10-31-2022 End: 05-14-2023 Start: 07-09-2022 End: 01-07-2023 Start: 05-03-2022 End: 02-18-2023 Start: 05-03-2022 End: 10-31-2022 Start: 04-10-2022 End: 05-03-2022 Start: 02-26-2022 End: 10-19-2024 Start: 02-26-2022 Start: 01-14-2022 End: 07-09-2022 Start: 01-14-2022 End: 01-07-2023 Start: 11-26-2021 End: 10-19-2024 Start: 11-26-2021 Start: 11-19-2021 End: 01-14-2022 Start: 11-19-2021 End: 01-14-2022 Start: 10-08-2021 End: 10-19-2024 Start: 10-08-2021 Start: 10-08-2021 End: 11-26-2021 Start: 10-08-2021 End: 11-19-2021 Start: 10-08-2021 End: 04-01-2024 Start: 10-08-2021 End: 05-03-2022 Start: 10-08-2021 End: 04-10-2022 Start: 07-18-2021 End: 01-10-2022 Start: 01-03-2021 End: 07-18-2021 Start: 10-10-2020 End: 02-26-2022 Start: 03-22-2020 End: 05-14-2023 Start: 02-03-2020 End: 01-03-2021 Start: 01-13-2020 End: 03-22-2020 Start: 01-07-2020 End: 10-10-2020 Start: 01-03-2020 End: 02-03-2020 Start: 12-26-2019 End: 01-03-2020 Start: 11-05-2019 End: 12-26-2019 Completed/Discontinued Medications Medication Drug Class(es) Dates Sig [...] in 24 hours. acetaminophen 325 mg / HYDRO codone bitartrate 5 mg oral tablet (20 sources) Opioid Agonist Start: 11-02-2021 End: 05-14-2023 Start: 11-02-2021 End: 05-14-2023 Hydrocodone-Acetaminophen 5- 325 mg tablet Discontinued 1 {tbl} PO EVERY 6 HOURS NEEDED as needed for Pain 12 November 02, 2021 May 14, 2023 2:18pm Start: 11-02-2021 End: 05-14-2023 take 1 tablet by mouth every six hours as needed Hydrocodone-Acetaminophen Discontinued 1 TABLET PO EVERY 6 HOURS NEEDED 12 November 02, 2021 May 14, 2023 2:18pm Start: 12-04-2019 End: 12-07-2019 Start: 12-04-2019 End: 12-07-2019 Hydrocodone-Acetaminophen 1 TABLET [...] 2019 12:02am amoxicillin 500 mg oral capsule (20 sources) Penicillin-class Antibacterial Start: 04-07-2023 End: 05-14-2023 calcium carbonate 500 mg chewable tablet (2 [...] 1 tablet by lily th once daily. cholecalciferol 9.52 unt/ml / glucose [...] sources) Muscle Relaxant Start: 02-09-2018 End: 11-05-2019 diphenhydrAMINE hydrochloride 10 mg/ml / zinc acetate 1 mg/ml topical cream (2 sources) Histamine-1 Receptor Antagonist Start: 08-26-2024 End: 08-28-2024 Topical, 3 times daily PRN, itching, Starting on Fri08/26/24 at 1434 0.5 ml dulaglutide 1.5 mg/ml auto-injector (20 sources) GLP-1 Receptor Agonist Start: 03-19-2021 End: 05-01-2021 Start: 03-19-2021 End: 05-01-2021 Dulaglutide (Trulicity) 0.75 [...] 0 .ROUTE .MEDSUPPLY 2 February 03, 2020 11:52am January 03, 2021 [...] propionate 0.05 mg/actuat metered dose nasal spray (20 sources) Corticosteroid Start: 04-07-2023 End: 05-14-2023 Start: 04-07-2023 End: 05-14-2023 take 1 spray(s) nasal route once daily Fluticasone Propionate (24 Hour Allergy Relief) 50 mcg/actuation spray,suspension Discontinued 2 SPRAY INTRANASAL DAILY April 07, 2023 1:00am May 14, 2023 2:19pm administer into each nostril furosemide 40 mg oral tablet (20 sources) Loop Diuretic Start: 07-03-2023 End: 01-31-2024 Start: 07-03-2023 End: 01-31-2024 Start: 07-03-2023 End: 07-30-2023 take 1 tablet by mouth once daily Furosemide 40 mg tablet Discontinued 40 mg PO DAILY July 03, 2023 12:00am July 30, 2023 2:24pm gabapentin 800 mg oral tablet (20 sources) Anti-epileptic Agent Start: 04-27-2018 End: 11-05-2019 glucagon (rdna) 1 mg injection (2 sources) [...] Comment on above: Take 4 tablets by [facility] as needed. 1 ml heparin [...] dose on Fri08/23/24 at 1400 homatropine methylbromide 0. 3 mg/ml / HYDROcodone bitartrate 1 mg/ml oral solution (20 sources) Opioid Agonist, Cholinergic Muscarinic Agonist Start: 04-29-2018 End: 05-06-2018 Start: 04-29-2018 End: 05-06-2018 take 1 [tsp_us] by mouth every six hours as needed for cough Hydrocodone-Homatropine 5 ML syrup Discontinued 5 mL PO EVERY 6 HOURS 3 April 29, 2018 1:00am May 05, 2018 1:00am May 06, 2018 1:09am 1 tsp every 6 hours as needed for cough Start: 04-29-2018 End: 05-06-2018 take 1 [tsp_us] by mouth every six hours as needed for cough Hydrocodone-Homatropine Discontinued 5 M L PO EVERY 6 HOURS 3 April 29, 2018 1:00am May 06, 2018 1:09am 1 tsp every 6 hours as needed for cough hydroCHLOROthiazide 12.5 mg oral tablet (20 sources) Thiazide Diuretic Start: 12-19-2022 End: 12-23-2022 Start: 02-09-2018 End: 11-05-2019 Start: 02-09-2018 End: 11-05-2019 take 12.5 mg [...] needed for pain insulin aspart, human 100 un t/ml injectable solution (20 sources) Insulin Analog Start: 12-19-2022 End: 08-20-2024 Start: 12-19-2022 End: 08-20-2024 Insulin Aspart U-100 (Novolo g U-100 Insulin Aspart) 100 unit/mL solution Discontinued [...] Pen 5 07/30/2019 Active Start: 09-06-2015 End: 05-14-2023 Start: 09-06-2015 End: 11-05-2019 Insulin Aspart U-100 100 UNI TS/ML insulin pen Discontinued 0 U SC 3 TIMES DAILY WITH MEALS September 06, 2015 12:00am November 05, 2019 2:20pm Start: 09-15-2013 End: 12-21-2014 Comment on above: Take 30 units before meals Do not take if you do not eat insulin glargine 100 unt/ml injectable solution (20 sources) Insulin Analog Start: 08-27-2024 End: 08-28-2024 inject 45 [IU] by subcutaneous injection once daily 45 Units, SubCUTAneous, Nightly, First dose (after last modification) on Fri08/27/242099 Start: 08-25-2024 End: 08-27-2024 inject 50 [IU] by subcutaneous injection once daily 50 Units, SubCUTAneous, Nightly, First dose (after last modification) on Fri08/25/242099 Start: 08-24-2024 End: 08-25-2024 40 Units, SubCUTAneous, Viktoriya thakkar, First dose on Fri08/24/24 at 2100, 2 hours after administration PLEASE HAVE PATIENT REMOVE INSULIN PUMP Start: 03-30-2024 End: 08-10-2024 Start: 03-30-2024 End: 08-10-2024 Insulin Glargine (Lantus Daniela ostar U-100 Insulin) 100 unit/mL (3 mL) [...] January 07, 2020 1:03pm am Start: 07-30-2019 insulin glargi ne (LANTUS SOLOSTAR, BASAGLAR KWIKPEN) 100 unit/mL (3 mL) Inject 80 Units subcutaneously once daily. 0 07/30/2019 Active Start: 06-17-2016 End: 01-07-2020 Start: 06-17-2016 End: 09-21-2024 Start: 06-17-2016 End: 02-09-2018 Insulin Glargine (Basaglar K antoniettakpen U-100) 100 UNIT/ML Insuln.Pen Discontinued 40 U SQ WITH BREAKFAST June 17, 2016 12:00am February 09, 2018 11:39am Start: 05-09-2013 End: 12-21-2014 Start: 05-09-2013 End: 12-21-2014 Insulin Glargine (Lantus Daniela ostar U-100 Insulin) 100 UNITS/ML Pen Discontinued [...] Kit (Gen 5)) cartridge Discontinued 0 .Route October [...] pad (20 sources) Start: 01-07-2020 End: 08-10-2024 Start: 01-07-2020 End: 08-10-2024 Alcohol Swabs (Bd Alcohol Sw abs) pads, medicated Discontinued 1 NMA TOPICAL .4 times daily May 20, 2022 12:01pm August 10, 2024 8:48pm Start: 01-07-2020 End: 05-20-2022 Alcohol Swabs (Bd Alcohol Sw abs) pads, medicated Discontinued 1 PAD TOPICAL .4 times daily November 19, 2021 10:39am May 20, 2022 12:01pm Start: 04-17-2018 alcohol swabs padm APPLY TO AFFECTED AREA FIVE TIMES DAILY 200 Each 04/17/2018 Active Comment on above: APPLY TO [...] Converting Enzyme Inhibitor Start: 07-04-19 End: 04-18-19 Start: 12-08-2020 End: 06-15-2024 Start: 02-09-2018 End: 06-23-2020 Comment on above: Take 1 tablet by lily th once daily. 12 hr loratadine 5 mg / pseudoephedrine sulfate 120 mg extended release oral tablet (11 sources) alpha-Adrenergic Agonist Start: 08-05-2024 End: 10-19-2024 Start: 08-05-2024 take 1 tablet by lily th every twelve hours as needed Loratadine-Pseudoephedrine (Claritin-D 1 2 Hour) 5-120 mg tablet extended release 12 hr Active 1 {tbl} PO Q12H as needed for sinus symptoms August 05, 2024 12:00am melatonin 3 mg oral tablet (4 sources) [...] Apply externally, Nightly, F irst dose on 08/23/24 at 2215, For 1 dose, Apply to [...] tablet by lily th daily at bedtime. mupirocin 0.02 mg/mg topical [...] times daily. ondansetron 4 mg oral tablet (9 sources) Serotonin-3 Receptor Antagonist Start: 08-23-2024 End: 08-30-2024 Start: 08-10-2024 End: 08-20-2024 take 1 tablet [...] mg oxyCODONE hydrochloride 5 mg oral tablet (14 sources) Opioid Agonist Start: 08-24-2024 End: 08-24-2024 take 5 mg by mouth once as needed for pain 5 mg, Oral, Once PRN, severe pain (7-10), Starting on Fri08/24/24 at 0039, For 1 dose Start: 07-20-2024 End: 08-10-2024 piperacillin-tazobactam (Zos yn) 2,250 mg in sodium chloride 0.9 % 50 mL IVPB Mini-Bag Plus (2 sources) Start: 08-23-2024 End: 08-24-2024 take 2250 mg intravenously every six hours polyethylene glycol 3350 170 00 mg powder for oral solution (2 sources) Osmotic Laxative Start: 08-23-2024 End: 08-28-2024 take 17 g by mouth every twenty-four hours as needed for constipation predniSONE 10 mg oral tablet (20 sources) Start: 08-17-2023 End: 01-22-2024 Start: 11-02-2021 End: 05-14-2023 Start: 11-02-2021 End: 05-14-2023 take 60 mg [...] Procedure Med Orders rosuvastatin calcium 10 mg o ral tablet (20 sources) HMG-CoA Reductase Inhibitor Start: 07-03-2021 End: 02-25-2024 Start: 05-08-2020 End: 10-27-2024 take 1 tablet by mouth once daily at bedtime rosuvastatin (CRESTOR) 20 mg tablet Take 1 tablet by mouth daily at bedtime. 30 tablet 5 05/08/2020 Active Comment on above: Take 1 tablet by lily th daily at bedtime. 0.25 mg, 0.5 mg dose 1.5 ml semaglutide 1.34 mg/ml pen injector (20 sources) Start: 03-02-2021 End: 03-19-2021 Start: 03-02-2021 End: 03-19-2021 Semaglutide (Ozempic) 0.25 m g or 0.5 mg(2 mg/1.5 mL) pen injector Discontinued 0.5 mg SC EVERY WEEK 1.5 March 02, 2021 1:00am March 19, 2021 5:10pm sildenafil 100 mg oral tablet (20 sources) Phosphodiesterase 5 Inhibitor Start: 05-22-2016 End: 06-15-2024 sildenafil (VIAGRA) 100 mg tablet Take 0.5 tablets by mouth as needed. Take 30 to 60min before sexual activity 3 tablet 05/22/2016 06/15/2024 Discontinued Comment on above: Take 0.5 tablets by mouth as needed. Jimmy e 30 to 60min before sexual activity Sucralfate (Carafate) 100 mg/mL suspension (7 sources) Start: 08-17-2024 End: 08-31-2024 take 1 mL by mouth at bedtime Sucralfate (Carafate) 100 mg/mL suspension Discontinued 10 mL PO before meals and at bedtime 1199August 17, 2024 12:00am August 31, 2024 3:06pm Start: 08-17-2024 take 1 mL by mouth at bedtime Sucralfate (Carafate) 100 mg/mL suspension Active 10 mL PO before meals and at bedtime 1199August 17, 2024 12:00am Vancomycin (2 sources) Glycopeptide Antibacterial Start: 08-23-2024 End: 08-23-2024 Problems Active Problems Problem Classification Problem Date Documented Da te Episodic/Chronic Acute myocardial infarction (20 sources) Myocardial infarction; [...] and grafts, initial encounter] Onset: 5 Chronic Congestive heart failure; nonhypertensive (15 sources) Congestive heart failure; Translations: [Heart failure, [...] Onset: 6 07-17-2018 Chronic E Codes: Fall (20 sources) Fall; Translations: [Unspecified fall, initial encounter] [...] CONTROLLED ON MED, A FTER DIALYSIS HYPOTENSION Fracture of lower limb (20 sources) Fracture of phalanx of foot; Translations: [Unspecified fracture of unspecified toe(s), initial encounter for closed fracture] 04-15-2023 Episodic Fracture of upper limb (20 sources) Fracture of scapula; Translations: [Fracture of unspecified part of scapula, unspecified shoulder, initial encounter for closed fracture] 12-05-2019 Episodic Genitourinary symptoms and ill-defined conditions (20 sources) Microalbuminuria; Translations: [Proteinuria, unspecified] Episodic Influenza (20 sources) Influenza due to Influenza A virus; Translations: [Influenza due to other identified influenza virus with other respiratory manifestations] 11-13-2019 Episodic Nausea and vomiting (20 sources) Nausea and vomiting; Translations: [Nausea with vomiting, unspecified] 03-29-2020 Episodic Nutritional deficiencies (20 sources) Vitamin D deficiency; Translations: [Vitamin D deficiency, unspecified] Onset: 4 Chronic Other aftercare (1 source) Long-term current use of insulin; Translations: [FCI (current) use of insulin] 06-15-2024 Episodic Other circulatory disease (20 sources) Arteriovenous fistula; Translations: [Arteriovenous fistula, acquired] 04-23-2024 Chronic Other circulatory disease (1 source) Arteriovenous fistula, acquired; Translations: [Arteriovenous fistula, acquired] Onset: 5 Chronic Other circulatory disease (16 sources) Abnormal foot pulse; Translations: [Other specified [...] eye] Onset: 5 Chronic Other gastrointestinal disorders (20 sources) Swallowing painful; Translations: [Dysphagia, unspecified] 08-17-2024 Episodic Other gastrointestinal disorders (20 sources) Dysphagia; Translations: [Dysphagia, unspecified] 08-17-2024 Episodic Other inflammatory condition of skin (1 source) Pruritus, unspecified; Translations: [Unspecified pruritic disorder] 06-15-2024 Episodic Other lower respiratory disease (20 sources) Dyspnea on exertion; Translations: [Other forms of dyspnea] 07-01-2023 Episodic Other lower respiratory disease (6 sources) Other forms of dyspnea; Translations: [Other respiratory abnormalities] 07-01-2023 Episodic Other lower respiratory disease (14 sources) Respiratory insufficiency; Translations: [Other abnormalities of [...] nutritional; endocrine; and metabolic disorders (20 sources) H/O: diabetes mellitus; Translations: [Personal history of other endocrine, nutritional and metabolic disease] 04-15-2023 Episodic Other nutritional; endocrine; and metabolic disorders (14 sources) Body mass index 25-29 - overweight; Translations: [Overweight] 02-07-2024 Episodic Other nutritional; endocrine; and metabolic disorders (20 sources) Overweight; Translations: [Overweight] 07-28-2024 Episodic Other skin disorders (20 sources) Facial swelling ; Translations: [Localized swelling, mass and lump, head] 11-10-2021 Episodic Other upper respiratory disease (20 sources) Allergic rhinitis; Translations: [Allergic rhinitis, unspecified] Onset: 6 03-13-2006 Chronic Otitis media and related conditions (20 sources) Infective otitis media; Translations: [Otitis media, unspecified, left ear] 04-15-2023 Episodic Pneumonia (except that caused by tuberculosis or sexually transmitted disease) (6 sources) Pneumonia; Translations: [Pneumonia, unspecified organism] Onset: 10-19-2024 Episodic Residual codes; unclassified (4 sources) Awaiting transplantation; Translations: [Awaiting organ transplant status] 08-28-2023 Chronic Residual codes; unclassified (1 source) Obstructive sleep apnea syndrome; Translations: [Obstructive sleep apnea (adult) (pediatric)] 06-15-2024 Chronic Residual codes; unclassified (1 source) Awaiting organ transplant status; Translations: [Organ transplant candidate] Onset: Chronic Residual codes; unclassified (4 sources) Failed encounter 10-19-2024 Episodic Respiratory failure; insufficiency; arrest (adult) (5 sources) Acute hypoxemic respiratory failure; Translations: [Acute respiratory failure with hypoxia] Onset: 5 10-19-2024 Episodic Septicemia (except in labor) (12 sources) Sepsis; Translations: [Sepsis, unspecified organism] Onset: 5 08-23-2024 Episodic Skin and subcutaneous tissue infections (20 sources) Cellulitis of foot; Translations: [Cellulitis of right lower limb] 01-17-2020 Episodic Unclassified (2 sources) Awaiting transplantation 10-11-2024 Unclassified (4 sources) Patient encounter status 10-11-2024 Past or Other Problems Problem Classification Problem Date Documented Da te Episodic/Chronic Abdominal pain (20 sources) Indigestion; Translations: [Epigastric pain] Onset: 08-18-2024 08-11-2024 Episodic Acute and unspecified renal failure (20 sources) Injury of kidney; Translations: [Acute kidney failure, unspecified] Onset: 03-25-2024 11-13-2019 Episodic Bacterial infection; unspecified site (19 sources) Microbiologic culture positive; Translations: [Bacteremia] Onset: 02-13-2024 02-07-2024 Episodic Complication of device; implant or graft (20 sources) Disorder of surgical arteriovenous fistula; Translations: [Other mechanical complication of surgically created arteriovenous fistula, initial encounter] Onset: 08-05-2024 06-18-2024 Episodic Coronary atherosclerosis and other heart disease (1 source) Presence of coronary angioplasty implant and graft; Translations: [Presence of coronary angioplasty implant and graft] Onset: 03-25-2024 Episodic Diabetes mellitus without complication (20 sources) Hyperglycemia; Translations: [Hyperglycemia, unspecified] Onset: 02-25-2024 05-14-2023 Episodic Fever of unknown origin (9 sources) Pyrexia of unknown origin; Translations: [Fever, unspecified] Onset: 08-25-2024 08-23-2024 Episodic Fluid and electrolyte disorders (20 sources) Dehydration; Translations: [Dehydration] Onset: 04-26-2022 03-28-2020 Episodic Immunizations and screening for infectious disease (4 sources) Viral screening status; Translations: [Encounter for screening for other viral diseases] Onset: 09-21-2024 Episodic Nonspecific chest pain (20 sources) Chest pain; Translations: [Chest pain, unspecified] Onset: 08-18-2024 08-11-2024 Episodic Other connective tissue disease (20 sources) Dupuytren contracture of right palm; Translations: [Palmar fascial fibromatosis [Dupuytren]] Onset: 01-20-2017 01-20-2017 Episodic Other connective tissue disease (20 sources) Pain in both feet; Translations: [Pain in right foot] Onset: 01-20-2017 01-20-2017 Episodic Other gastrointestinal disorders (2 sources) Dysphagia, unspecified; Translations: [Dysphagia, unspecified] Onset: 09-14-2024 Episodic Other lower respiratory disease (1 source) Other abnormalities of breathing; Translations: [Other abnormalities of breathing] Onset: 03-25-2024 Episodic Other non-traumatic joint disorders (20 sources) Pain in lower limb; Translations: [Pain in unspecified knee] Onset: 03-13-2006 03-13-2006 Episodic Other nutritional; endocrine; and metabolic disorders (1 source) Overweight; Translations: [Overweight] Onset: 03-25-2024 Episodic Other screening for suspected conditions (not mental disorders or infectious disease) (20 sources) Raised cardiac enzyme or marker; Translations: [Other specified abnormal findings of blood chemistry] Onset: 08-18-2024 02-07-2024 Episodic Screening and history of mental health and substance abuse codes (20 sources) H/O: anxiety state; Translations: [Personal history of other mental and behavioral disorders] Onset: 09-21-2024 04-27-2018 Episodic Spondylosis; intervertebral disc disorders; other back problems (20 sources) Sciatica; Translations: [Sciatica, unspecified side] Onset: 03-13-2006 03-13-2006 Episodic Results Test Name Value Interpretation Reference Range Facility /[facility]-23[facility]2024 [facility] (INTM[facility] LAURIE GONZALES ([id number]) 1980 M Date Time Provider Department 12/21/24 1:40 PM KRISTAL SULLIVAN INTMWS During your visit today, we recorded the following information about you: Temperature Pulse Respiration Blood pressure 97.7 degrees 78/minute 16/minute 176/94 Weight 90.4 kg Kristal Sullivan MD 12/21/2024 2:33 PM Signed Reason for Visit Follow up HPI Laurie Gonzales is a 44-year-old male with a history of ESRD on home hemodialysis, type 1 diabetes mellitus, and hypertension, presenting for follow-up. Laurie is currently on the transplant list for both pancreas and kidney at the [facility]. He is undergoing home hemodialysis 5 days a week, each session lasting approximately 4 hours. Laurie manages his dialysis independently, including the preparation of dialysate, which takes about 7 hours per session. He reports that the entire process occupies about 12 hours of his day. He is under the care of Dr. Mann Mckeon and receives support from [facility] for his dialysis management. Laurie describes the dialysis process as generally manageable but notes discomfort when inserting blunt needles into his established buttonholes, stating, it hurts like as it's going in, even though that scab is off and stuff. He reports no issues with the dialysis procedure itself and has not missed any sessions since starting home dialysis. However, he does mention a recent 5-day period without dialysis due to illness, during which he experienced increased urine output and a reduction in foamy urine. He plans to discuss this with Dr. Mckeon during his next clinic visit. Laurie reports a decreased appetite and is supplementing his diet with protein shakes containing 30 grams of protein per can. He is considering resuming Glucerna to meet his protein needs. He also experiences symptoms consistent with restless leg syndrome during dialysis sessions, which he attributes to electrolyte imbalances. Laurie is currently taking metoprolol but has discontinued amlodipine and carvedilol due to concerns about hypotension during dialysis. He monitors his blood pressure regularly during dialysis sessions to prevent hypotensive episodes. He is also on insulin therapy managed by an insulin pump and reports stable blood glucose levels. 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 He is also engaging in physical activity, including walking at [facility], where he has season passes. SOCIAL HISTORY[1] Past medical history, appointments, medications, allergies reviewed. Pertinent Lab/Diagnostic Studies are reviewed and discussed today Current Outpatient Medications: Nut.Tx.Gluc.Intol,La c-Free,Soy (GLUCERNA SHAKE) liqd DEXCOM G6 SENSOR aiden OMNIPOD 5 G6-G7 PODS, GEN 5, crtg sevelamer carbonate (RENVELA) 800 mg tablet metoprolol succinate ER (TOPROL XL) 25 mg 24 hr tablet amLODIPine (NORVASC) 5 mg tablet Acetone, Urine, Test (KETONE URINE TEST) blood sugar diagnostic (FREESTYLE LITE STRIPS) test strip MEDICAL SUPPLY rosuvastatin (CRESTOR) 20 mg tablet insulin aspart U-100 (NOVOLOG FLEXPEN U-100 INSULIN) 100 unit/mL (3 mL) alcohol swabs padm Insulin [place], Disposable, (BD ULTRA-FINE CAROL PEN NEEDLE) 32 gauge x 5/32 ndle Zn Acetate-Meadowsweet- [place] (AMERIGEL) gel Health Maintenance Hepatitis A Vaccine(1 of 2 - Risk 2-dose series) Shingrix Vaccine(1 of 2) HPV Vaccine(1 - 3-dose SCDM series) DTaP,Tdap,Td Vaccine(1 - Tdap) Diabetic Foot Exam Influenza Vaccine(1)@ Review Of Systems Constitutional: (+) decreased appetite Genitourinary: (+) polyuria, (+) foamy urine, (-) anuria Musculoskeletal: (+) arm pain Neurological: (+) leg restlessness Physical Exam BP 176/94 Pulse 78 Temp 36.5 ?C (97.7 ?F) (Temporal) Resp 16 Wt 90.4 kg (199 lb 6.4 oz) SpO2 99% BMI 27.92 kg/m? GENERAL: NAD, alert and oriented. SKIN: Unremarkable, no rash or skin lesions. HEAD: Normocephalic. EYES: PERRLA, EOMI, conjunctiva clear. EARS: External ears normal, canals clear, TM's normal. NECK: Supple, no lymphadenopathy, normal thyroid, no carotid bruits. LUNGS: Clear to auscultation bilaterally, no wheezes/rhonchi/rale s. HEART: Regular rate and rhythm, no murmurs. No ectopy. EXTREMITIES: Normal, no deformities, no skin discoloration, no edema. NEURO: Awake, alert and oriented x3, cranial nerves II-XII grossly intact, normal gait, no involuntary motions. Assessment and Plan 1. Mixed hyperlipidemia (E78.2) No recent lipid panel results discussed. 2. Essential hypertension (I10) Blood pressure generally well controlled on metoprolol; patient omitted dose today, resulting in elevated BP at visit. - Advised patient to take metoprolol as prescri (more content not included)... [facility] (TXCTGL) LAURIE GONZALES ([id number]) 1980 M Date Time Provider Department 11/17/24 [facility] During your visit today, we recorded the following information about you: Sindy Alonzo 11/17/2024 10:29 AM Signed Progress Note from [facility] scanned into [employer]. Sindy Alonzo Allergies As of Date: 11/17/2024 Noted Allergy Reaction SEASONAL ALLERGIES 11/17/2014 5 - Intolerance Date Reviewed: 09/21/2024 Reviewed by: Kim Loving MA - Fully Assessed Reason for Visit: Received Outside Medical Records [[id number]] Prescriptions as of 11/17/2024 - DEXCOM G6 SENSOR aiden USE 1 [...] AFFECTED AREA FIVE TIMES DAILY - Insulin [place], Disposable, (BD ULTRA-FINE CAROL PEN NEEDLE) 32 gauge x 5/32 ndle Use one needle for each dose. 7/day. - Zn Acetate-Meadowsweet- Woodland (AMERIGEL) gel Apply 1 application to affected area twice daily. Problem List As Of Date 11/17/2024 Noted Resolved DEVELOPMENTAL DYSLEXIA [F81.0] ALLERGIC RHINITIS [...] 12/01/2020 Encounter Status:Closed by SINDY ALONZO on 11/17/24 Normal [facility] CBC panel Auto (Bld)on 10-26 Erythrocyte distribution width (RBC) [Ratio] 14.3 % Normal 11.5-15.0 [facility] Comment on above: Order Comment: Speci men Type: BLOOD SPECIMENOrdering Facility: [facility] Address: [address] [place] [address] Performed By: #### 5 8410-2 ####[facility] LABIA [id number] [place] [address] [place] Hematocrit (Bld) [Volume fraction] 32.1 % Low 39.0-51.0 [facility] Comment on above: Order Comment: Speci men Type: BLOOD SPECIMENOrdering Facility: [facility] Address: [address] [place] [address] Performed By: #### 5 8410-2 ####[facility] LABIA [id number] [place] [address] [place] Hemoglobin (Bld) [Mass/Vol] 10.3 g/dL Low 13.0-17. 0 [facility] Comment on above: Order Comment: Speci men Type: BLOOD SPECIMENOrdering Facility: [facility] Address: [address] [place] [address] Performed By: #### 5 8410-2 ####[facility] LABIA [id number] [place] [address] [place] MCH (RBC) [Entitic mass] 29.6 pg Normal 26.0-34.0 [facility] Comment on above: Order Comment: Speci men Type: BLOOD SPECIMENOrdering Facility: [facility] Address: [address] [place] [address] Performed By: #### 5 8410-2 ####[facility] LABIA [id number] [place] [address] [place] MCHC (RBC) [Mass/Vol] 32.1 g/dL Normal 30.5-36.0 [facility] Comment on above: Order Comment: Speci men Type: BLOOD SPECIMENOrdering Facility: [facility] Address: [address] [place] [address] Performed By: #### 5 8410-2 ####[facility] LABCLIA [id number] [place] [address] [place] MCV (RBC) [Entitic vol] 92.2 fL Normal 80.0-100.0 [facility] Comment on above: Order Comment: Speci men Type: BLOOD SPECIMENOrdering Facility: [facility] Address: [address] [place] [address] Performed By: #### 5 8410-2 ####[facility] LABIA [id number] [place] [address] [place] Nucleated RBC (Bld) [#/Vol] 10*3/uL Normal <0.01 [facility] Comment on above: Order Comment: Speci men Type: BLOOD SPECIMENOrdering Facility: [facility] Address: [address] [place] [address] Performed By: #### 5 8410-2 ####[facility] LABIA [id number] [place] [address] [place] Platelet mean volume (Bld) [Entitic vol] 8.8 fL Low 9.0-12.7 [facility] Comment on above: Order Comment: Speci men Type: BLOOD SPECIMENOrdering Facility: [facility] Address: [address] [place] [address] Performed By: #### 5 8410-2 ####[facility] LABIA [id number] [place] [address] [place] Platelets (Bld) [#/Vol] 369 10*3/uL Normal 150-400 [facility] Comment on above: Order Comment: Speci men Type: BLOOD SPECIMENOrdering Facility: [facility] Address: [address] [place] [address] Performed By: #### 5 8410-2 ####[facility] LABIA [id number] [place] [address] [place] RBC (Bld) [#/Vol] 3.48 10*6/uL Low 4.20-6.[address] [facility] Comment on above: Order Comment: Speci men Type: BLOOD SPECIMENOrdering Facility: [facility] Address: [address] [place] [address] Performed By: #### 5 8410-2 ####[facility] LABIA [id number] [place] [address] [place] WBC (Bld) [#/Vol] 8.22 10*3/uL Normal 3.70-11.[address] [facility] Comment on above: Order Comment: Speci men Type: BLOOD SPECIMENOrdering Facility: [facility] Address: [address] [place] [address] Performed By: #### 5 8410-2 ####[facility] [id number] [place] [address] [place] CNCOon 10-26-2024 CNCO Letter Text Normal [facility] CNOVon 10-26-2024 CNOV Office Visit (TXCTGL) LAURIE GONZALES ([id number]) 1980 M Date Time Provider Department 10/26/24 3:00 PM KIDNEY TXP COORDINATORS TXCTGL During your visit today, we recorded the following information about you: Bg Jennings RN 10/26/2024 5:01 PM Signed As part of your transplant re-evaluation you are required to complete the following additional items. You are currently listed as inactive on the Kidney-Pancreas transplant waiting list. The most efficient way to complete your re-evaluation is to have these items completed as soon as possible so that we may review the results. Please contact us if you have any questions regarding the requested information. Failure to complete the testing requested may render you inactive on the waiting list. The following will be need to be completed at a [facility] facility: CARDIAC: ECHO - will need to update in 2025 Nuclear stress test - will need to update in 2026 CANCER SCREENING: PSA with Evaluation - will be drawn with your labwork if age appropriate. Colonoscopy - will need @ age 45 ADDITIONAL CONSULTS Cardiology Clearance - will be obtained from your established box car bracer. Imaging Studies: CT of abdomen and pelvis without contrast - will need update in 2026 Miscellaneous Items: - Dental Clearance Form - please make an appointment for a dental visit and have them complete the clearance form and fax it back to the number at the top of the form. . - Stop Plavix - 1st date without Plavix = 10/27/2024 - wait 5 days before resuming ACTIVE status if Cardiology has provided clearance. -Patient asked to have any reports from any visits/procedures done at [facility] faxed to us so they can be seen. - Patient to continue sending monthly Allogen blood for transplant - and will contact coordinator if he needs more kits. - Patient will communicate any medical updates or changes to his coordinator. You are responsible for scheduling your needed testing/consults. Please feel free to call [phone] to arrange. Outside test results should be faxed to [phone]. Please review the kidney transplant educational materials on line at [email or web address] Sign-in: Kidney To check on your status on the wait list, please contact your coordinator, Bg Jennings RN [phone]. [employer] Messages or Call and leave a message @ [phone] are the best ways to get in touch You will need to follow up with the transplant team in 1 year for reassessment. Bg Jennings RN Kidney/Pancreas Pre-Plastics Bench Mechan[employer] [facility] Referring Provider: RONEN ELDRIDGE [[id number]] Allergies As of Date: 10/26/2024 Noted Allergy Reaction SEASONAL ALLERGIES 11/17/2014 5 - Intolerance Date Reviewed: 09/21/2024 Reviewed by: Kim Loving MA - Fully Assessed Primary Visit Diagnosis:Pre-transp lant evaluation for kidney transplant [Z01.818] Other Visit Diagnoses:ESRD on dialysis (HCC) [N18.6, Z99.2] Pre-transplant evaluation for ESRD (end stage renal disease) [Z01.818] Prescriptions as of 10/26/2024 - DEXCOM G6 SENSOR aiden USE 1 [...] - MEDICAL SUPPLY Blood pressure machine - Nut.Tx.Gluc.IntolLa c-Free,Soy (GLUCERNA SHAKE) liqd DRINK 1 BOTTLE (237ML) twice a day - rosuvastatin (CRESTOR) 20 mg tablet Take 1 tablet by mouth daily at bedtime. - insulin aspart U-100 (NOVOLOG FLEXPEN U-100 INSULIN) 100 unit/mL (3 mL) Take 30 units before meals Do not take if you do not eat - alcohol swabs padm APPLY TO AFFECTED AREA FIVE TIMES DAILY - Insulin [place], Disposable, (BD ULTRA-FINE CAROL PEN NEEDLE) 32 gauge x 5/32 ndle Use one needle for each dose. 7/day. - Zn Acetate-Meadowsweet- [place] (AMERIGEL) gel Apply 1 application to affected area twice daily. Problem List As Of Date 10/26/2024 Noted Resolved DEVELOPMENTAL DYSLEXIA [F81.0] ALLERGIC RHINITIS NOS [J30.9] 03/13/2006 Type 1 diabetes mellitus with hyperosmolarity w*03/13/2006 PAIN IN JOINT, LOWER LEG [M25.569] 03/13/2006 CERVICALGIA [M54.2] 03/13/2006 Mixed hyperlipidemia [E78.2] 03/13/2006 GERD (gastroesophageal reflux disease) [K21.9] 11/17/2014 Non morbid obesity due to excess calories [E66.*05/31/2015 Dupuytren's contracture of right hand [M72.0] 01/20/2017 Foot pain, bilateral [M79.671, M79.672] (more content not included)... Normal [facility] CNOV Office Visit (TXCTGL) LAURIE GONZALES ([id number]) 1980 Date Time Provider Department 10/26/24 2:30 PM WAIT LIST TXCTGL During your visit today, we recorded the following information about you: Temperature Pulse Blood pressure Weight 97.4 degrees 73/minute 93/58 86.7 kg Height 1.8 m Raghu Currie MD 10/26/2024 1:48 PM Signed [facility] TRANSPLANT TRANSPLANT RE-EVALUATION Patient is a 44 year old male here for re-evaluation of his Kidney-Pancreas transplant status. Dialysis Start Date: 02/04/2024 Dialysis Type: hemodialysis, M-W-F Dialysis Access: LLA AVF (removed chest cath 08/19/24) Dialysis Unit: [facility] [address] [place] [address] [place] [address] Referring/Local User Experience Researcher: Angle Shearer Role Contact Info Address Vivek Diaz MD Referring [address] [place] [address] Last evaluation: 08/28/2023 Listed for transplant: 07/14/2024 Status on waitlist: Active Waitlist appointment for this 44-year-old male. He has been listed for simultaneous pancreas kidney June last year. He was seen in July 2023. Significant medical events since then he was started on renal replacement therapy in December 2023 after he had an NSTEMI of well-controlled blood sugars. Had a stent placed and he is currently on Plavix. Recently admitted with TDC infection now dialyzes through an AV fistula. Continue home hemodialysis. Last admission for volume overload was seen, recommends dialysis on Friday. He still has urine output of around a liter and a half. No issues with peripheral vascular disease or neuropathy. Early in the year had an admission for nausea vomiting however he does not have a doctor frequently. Medications reviewed Reason for Re-Evaluation: Mr. Gonzales is a 44 yo man with ESRD 2/2 type 1 diabetes since age 18who has been listed for SPK since 07/14/24. He started dialysis 02/04/2024 and currently does IHD on MWF at [facility] and follows with Dr. Diaz. Patient had an NSTEMI on 01/05/2024 and was hospitalized at [facility] - 1 stent placed, started taking Plavix. He was recently hospitalized for dialysis cath infection 09/23/24 and placed on IV antibiotics at dialysis after discharge. Another admission 10/19/24 to [facility] after missed dialysis. Other PMH: HTN, Charcot Foot 2/2 DM, acute gastritis, Alexia/Dyslexia, Charcot Foot 2/2 DM, Anxiety/Depression, diabetic retinopathy - CHELE, Benign neoplasm of right tibia. Stroke: NO Claudication: NO Carotid Artery Stenosis: NO Diagnosis: CKD: Yes: Cause of CKD: DM Urine Output: about 1 liter per day DM: Yes Diagnosed at age 18 and Type 1 KS, CVA, PE/DVT: No Anticoagulation: No Immunosuppression: No Malignancies: No Recent Hospitalizations: Yes fluid overload, catheter infection August 2024 Infections: Yes HD cath infection - August 2024 Living Donors: No - SPK COVID Status: patient declines COVID vaccine Abdominal/Pelvic surgeries: none Types of donors patient is willing to consider: KDPI score > 85% No Donors from Cardiac (DCD) Yes Hepatitis B Core Antibody Pos Donors Yes Hepatitis C Pos Donors Yes Is the patient vaccinated against HEP B: (If vaccinated ensure documentation in Epic) Yes If patient is not vaccinated against HEP B do they plan on getting the vaccination: No If not why: Has not completed the Hepatitis B vaccination series due to: [] Timing related to transplant/time constraints [] Medical contraindication/pre caution [x] Medical judgement/prior immunity [] Patient choice/objection [] Product out of stock [] Confirm if patient is on dialysis Yes Sensitizations: Blood transfusions: no; Willing to accept blood products if needed: yes Prior transplant: No Rabbit: Has patient ever owned a pet rabbit, or participated in hunting and skinning rabbits? no If yes, does the patient have any allergic symptoms such as runny nose, sneezing, itchiness, hives or wheezing when exposed to rabbits? no If yes to allergic symptoms, patient will need referral to Allergy for skin testing. 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 Normal [facility] CNOV Office Visit (TXCTGL) LAURIE GONZALES ([id number]) 1980 M Date Time Provider Department 10/26/24 2:00 PM UROLOGY WAIT LIST TXCTGL During your visit today, we recorded the following information about you: Sarita Tamayo MD 11/09/2024 10:44 AM Signed [facility] TRANSPLANT TRANSPLANT RE-EVALUATION Patient is a 44 year old male here for re-evaluation of his Kidney-Pancreas transplant status. Dialysis Start Date: 02/04/2024 Dialysis Type: hemodialysis, M-W-F Dialysis Access: LLA AVF (removed chest cath 08/19/24) Dialysis Unit: [facility] [address] [facility] [address] Referring/Local User Experience Researcher: Angle Shearer Role Contact Info Address Vivek Diaz MD Referring Flavio4 [place] [facility] [id number] Last evaluation: 08/28/2023 Listed for transplant: 07/14/2024 Status on waitlist: Active BP 93/58 Pulse 73 Temp 36.3 ?C (97.4 ?F) (Temporal) Ht 180 cm (5' 10.87) Wt 86.7 kg (191 lb 2.2 oz) SpO2 100% BMI 26.76 kg/m? Reason for Re-Evaluation: Mr. Gonzales is a 44 yo man with ESRD 2/2 type 1 diabetes since age 18who has been listed for SPK since 07/14/24. He started dialysis 02/04/2024 and currently does IHD on MWF at [facility] and follows with Dr. Diaz. Patient had an NSTEMI on 01/05/2024 and was hospitalized at [facility] - 1 stent placed, started taking Plavix. He was recently hospitalized for dialysis cath infection 09/23/24 and placed on IV antibiotics at dialysis after discharge. Another admission 10/19/24 to [facility] after missed dialysis. Other PMH: HTN, Charcot Foot 2/2 DM, acute gastritis, Alexia/Dyslexia, Charcot Foot 2/2 DM, Anxiety/Depression, diabetic retinopathy - CHELE, Benign neoplasm of right tibia. Stroke: NO Claudication: NO Carotid Artery Stenosis: NO Diagnosis: CKD: Yes: Cause of CKD: DM Urine Output: about 1 liter per day DM: Yes Diagnosed at age 18 and Type 1 KS, CVA, PE/DVT: No Anticoagulation: No Immunosuppression: No Malignancies: No Recent Hospitalizations: Yes fluid overload, catheter infection August 2024 Infections: Yes HD cath infection - August 2024 Living Donors: No - SPK COVID Status: patient declines COVID vaccine Abdominal/Pelvic surgeries: none Types of donors patient is willing to consider: KDPI score > 85% No Donors from Cardiac (DCD) Yes Hepatitis B Core Antibody Pos Donors Yes Hepatitis C Pos Donors Yes Is the patient vaccinated against HEP B: (If vaccinated ensure documentation in Epic) Yes If patient is not vaccinated against HEP B do they plan on getting the vaccination: No If not why: Has not completed the Hepatitis B vaccination series due to: [] Timing related to transplant/time constraints [] Medical contraindication/pre caution [x] Medical judgement/prior immunity [] Patient choice/objection [] Product out of stock [] Confirm if patient is on dialysis Yes Sensitizations: Blood transfusions: no; Willing to accept blood products if needed: yes Prior transplant: No Rabbit: Has patient ever owned a pet rabbit, or participated in hunting and skinning rabbits? no If yes, does the patient have any allergic symptoms such as runny nose, sneezing, itchiness, hives or wheezing when exposed to rabbits? no If yes to allergic symptoms, patient will need referral to Allergy for skin testing. PRA: Serum Date: 10/07/2024 Total PRA: 0 Strong PRA: 0 Strong antibodies: none Weak antibodies: none 08/28/2023 ABO AB ABO AB Rh(D) Positive Rh(D) Positive PAST MEDICAL HISTORY Diagnosis Date Acute gastritis [...] hypofunction Pain in joint, lower leg 03/13/2006 [employer] Palpitations Proteinuria Type I (juvenile type) diabetes mellitus without mention of complication, uncontrolled 2000 Type II or unspecified type diabetes mellitus with other specified manifestations, uncontrolled PAST HERRERA (more content not included)... Normal [facility] CNOV Office Visit (TXCTGL) LAURIE GONZALES ([id number]) 1980 M Date Time Provider Department 10/26/24 10:30 AM KIDNEY TXP COORDINATORS TXCTGL During your visit today, we recorded the following information about you: Referring Provider: RONEN ELDRIDGE [[id number]] Allergies As of Date: 10/26/2024 Noted Allergy Reaction SEASONAL ALLERGIES 11/17/2014 5 - Intolerance Date Reviewed: 09/21/2024 Reviewed by: Kim Loving MA - Fully Assessed Primary Visit Diagnosis:Pre-transp lant evaluation for kidney transplant [Z01.818] Other Visit Diagnoses:ESRD on dialysis (HCC) [N18.6, Z99.2] Pre-transplant evaluation for ESRD (end stage renal disease) [Z01.818] Prescriptions as of 10/26/2024 - DEXCOM G6 SENSOR aiden USE 1 [...] AFFECTED AREA FIVE TIMES DAILY - Insulin [place], Disposable, (BD ULTRA-FINE CAROL PEN NEEDLE) 32 gauge x 5/32 ndle Use one needle for each dose. 7/day. - Zn Acetate-Meadowsweet- [place]land (AMERIGEL) gel Apply 1 application to affected area twice daily. Problem List As Of Date 10/26/2024 Noted Resolved DEVELOPMENTAL DYSLEXIA [F81.0] ALLERGIC RHINITIS [...] Essential hypertension [I10] 12/01/2020 Encounter Status:Closed by BG JENNINGS on 10/26/24 Normal [facility] Comprehensive metabolic 2000 panelon 10-26-2024 Albumin [Mass/Vol] 4.4 g/dL Normal 3.9-4.9 [facility] Comment on above: Order Comment: Speci men Type: BLOOD SPECIMENOrdering Facility: [facility] Address: [address] [place] [address] Performed By: #### 3 016-3, 25429-4, 05055-6 ####[facility] LABCLIA [id number] [place] [address] [place] ALP [Catalytic activity/Vol] 81 U/L Normal 38-113 [facility] Comment on above: Order Comment: Speci men Type: BLOOD SPECIMENOrdering Facility: [facility] Address: [address] [place] [address] Performed By: #### 3 016-3, 05181-0, 39103-1 ####[facility] LABCLIA [id number] [place] [address] [place] ALT [Catalytic activity/Vol] 10 U/L Normal 10-54 [facility] Comment on above: Order Comment: Speci men Type: BLOOD SPECIMENOrdering Facility: [facility] Address: [address] [place] [address] Performed By: #### 3 016-3, 81946-4, 18691-4 ####[facility] LABIA [id number] [place] [address] [place] Anion gap [Moles/Vol] 16 mmol/L High 8-15 [facility] Comment on above: Order Comment: Speci men Type: BLOOD SPECIMENOrdering Facility: [facility] Address: [address] [place] [address] Performed By: #### 3 016-3, 78749-2, 74609-2 ####[facility] LABIA [id number] [address] [place] AST [Catalytic activity/Vol] 19 U/L Normal 14-40 [facility] Comment on above: Order Comment: Speci men Type: BLOOD SPECIMENOrdering Facility: [facility] Address: [address] [place] [address] Performed By: #### 3 016-3, 56279-8, 99734-3 ####[facility] LABIA [id number] [place] [id number] [place] Bilirubin [Mass/Vol] 0.2 mg/dL Normal 0.2-1.3 [facility] Comment on above: Order Comment: Speci men Type: BLOOD SPECIMENOrdering Facility: [facility] Address: [address] [place] [address] Performed By: #### 3 016-3, 17625-5, 25350-6 ####[facility] LABCLIA [id number] [address] [address] [place] Calcium [Mass/Vol] 10.1 mg/dL Normal 8.5-10.2 [facility] Comment on above: Order Comment: Speci men Type: BLOOD SPECIMENOrdering Facility: [facility] Address: [address] [place], [place] [address] Performed By: #### 3 016-3, 43744-9, 35155-8 ####[facility] LABIA [id number] [address] [address] [place] Chloride [Moles/Vol] 93 mmol/L Low 98-107 [facility] Comment on above: Order Comment: Speci men Type: BLOOD SPECIMENOrdering Facility: [facility] Address: [address] [place], [place] [address] Performed By: #### 3 016-3, , 89685-8 ####[facility] LABIA [id number] [address] [address] [place] CO2 [Moles/Vol] 25 mmol/L Normal 22-30 [facility] Comment on above: Order Comment: Speci men Type: BLOOD SPECIMENOrdering Facility: [facility] Address: [address] [place] [address] Performed By: #### 3 016-3, 46060-8, 67403-6 ####[facility] LABIA [id number] [address] [address] [place] Creatinine [Mass/Vol] 7.31 mg/dL High 0.73-1.22 [facility] Comment on above: Order Comment: Speci men Type: BLOOD SPECIMENOrdering Facility: [facility] Address: [address] [place] [address] Performed By: #### 3 016-3, 58846-9, 16036-6 ####[facility] LABIA [id number] [place] [address] [place] eGFRcr SerPlBld CKD-EPI 2020 9 mL/min/1.73m??? Low >=60 [facility] Comment on above: Order Comment: Bam merritt Type: BLOOD SPECIMENOrdering Facility: [facility] Address: [address] [place] [address] Result Comment: Destinee mated Glomerular Filtration Rate [...] accurately reflect actual GFR. Performed By: #### 3 016-3, 21994-3, 77724-0 ####[facility] [id number] [place] [address] [place] Glucose [Mass/Vol] 158 mg/dL High 74-99 [facility] Comment on above: Order Comment: Bam merritt Type: BLOOD SPECIMENOrdering Facility: [facility] Address: [address] [place] [address] Result Comment: The [place] Diabetes Association (ADA) provides guidance for cutoff [...] Standards of Medical Care in Diabetes 2016, [place] Diabetes Association. Diabetes Care. 2016.39(Suppl 1). Performed By: #### 3 016-3, 77774-7, 22938-9 ####[facility] LABIA [id number] [address] [place] [address] [place] Potassium [Moles/Vol] 4.0 mmol/L Normal 3.7-5.1 [facility] Comment on above: Order Comment: Speci men Type: BLOOD SPECIMENOrdering Facility: [facility] Address: [address] [place], [place] [address] Performed By: #### 3 016-3, 50757-3, 78901-2 ####[facility] LABCLIA [id number] [address] [address] [place] Protein [Mass/Vol] 7.0 g/dL Normal 6.3-8.0 [facility] Comment on above: Order Comment: Speci men Type: BLOOD SPECIMENOrdering Facility: [facility] Address: [address] [place] [address] Performed By: #### 3 016-3, 45885-3, 57261-3 ####[facility] LABCLIA [id number] [place] [address] [place] Sodium [Moles/Vol] 134 mmol/L Low 136-144 [facility] Comment on above: Order Comment: Speci men Type: BLOOD SPECIMENOrdering Facility: [facility] Address: [address] [place] [address] Performed By: #### 3 016-3, 88843-4, 59709-2 ####[facility] LABCLIA [id number] [address], [facility] [place] Urea nitrogen [Mass/Vol] 42 mg/dL High 9-24 [facility] Comment on above: Order Comment: Speci men Type: BLOOD SPECIMENOrdering Facility: [facility] Address: [address] [place], [place] [address] Performed By: #### 3 016-3, 38170-6, 75939-8 ####[facility] LABCLIA [id number] [address] [address] [place] ECG COMPLETEon 10-26-2024 ECG COMPLETE Ventricular Rate : 73 BPM Atrial Rate : 73 BPM P-R Interval : 152 ms QRS Duration : 84 ms Q-T Interval : 432 ms QTC Calculation(Bazett) : 475 ms Calculated P [place] : 34 degrees Calculated R [place] : 37 degrees Calculated T [place] : 94 degrees NORMAL SINUS RHYTHM NORMAL ECG Confirmed by ROMERO FOURNIER MD ([id number]) on 12/13/2024 11:09:21 AM NAME : LAURIE GONZALES PID : [id number] : 1980 Gender : Male Race : ORD : [id number] Procedure Date : Oct 26 2024 11:50:32 Edit Date : Dec 13 2024 11:09:31 Diagnosis: NORMAL SINUS RHYTHM NORMAL ECG Confirmed by ROMERO FOURNIER MD ([id number]) on 12/13/2024 11:09:21 AM Test Reason : Location : 314 : J14 j14 Overread By : ROMERO FOURNIER MD Edited By : ROMERO FOURNIER MD Referred By : RONEN ELDRIDGE Acquired by : ALEXANDER GONSALEZ Normal [facility] HbA1c (Bld)on 10-26-2024 Average glucose Estimated from glycated hemoglobin (Bld) [Mass/Vol] 163 mg/dL Normal [facility] Comment on above: Order Comment: Bam merritt Type: BLOOD SPECIMENOrdering Facility: [facility] Address: [address] [place] [address] Result Comment: eAG: (Estimated average glucose) is a calculated value from HgbA1c and is regional sales representative of the average blood glucose level in the last 2-3 month period. Performed By: #### 5 5454-3 ####[facility] LABCLIA [id number] [place] [address] [place] HbA1c (Bld) [Mass fraction] 7.3 % High 4.3-5.6 [facility] Comment on above: Order Comment: Bam merritt Type: BLOOD SPECIMENOrdering Facility: [facility] Address: [address] [place] [address] Result Comment: [place] Diabetes Association guidelines indicate that patients with HgbA1c in the range 5.7-6.4% are at increased risk for development of diabetes, and intervention by lifestyle modification may be beneficial. HgbA1c greater or equal to 6.5% is considered diagnostic of diabetes. Performed By: #### 5 5454-3 ####[facility] LABCLIA [id number] [place] [address] [place] Lipid 1996 panelon 5 Cholesterol [Mass/Vol] 128 mg/dL Normal <200 [facility] Comment on above: Order Comment: Speci men Type: BLOOD SPECIMENOrdering Facility: [facility] Address: [address] [place] [address] Result Comment: <200 mg/dL, Desirable 200-239 mg/dL, Borderline high >239 mg/dL, High Performed By: #### 3 016-3, 05937-6, 14654-5 ####[facility] LABIA [id number] [address] [place] Cholesterol in HDL [Mass/Vol] 38 mg/dL Low >39 [facility] Comment on above: Order Comment: Carrolli men Type: BLOOD SPECIMENOrdering Facility: [facility] Address: [address] [place] [address] Result Comment: 40-5 9 mg/dL, Acceptable >59 mg/dL, High: Negative risk factor for coronary heart disease <40 mg/dL, Low: Positive risk factor for coronary heart disease Performed By: #### 3 016-3, 21104-7, 21088-6 ####[facility] LABIA [id number] [address] [place] Cholesterol in LDL [Mass/Vol] 63 mg/dL Normal <100 [facility] Comment on above: Order Comment: Speci men Type: BLOOD SPECIMENOrdering Facility: [facility] Address: [address] [place] [address] Result Comment: <100 mg/dL, Optimal 100-129 mg/dL, Near optimal/above optimal 130-159 mg/dL, Borderline high 160-189 mg/dL, High >189 mg/dL, Very high Secondary prevention optimal LDL Cholesterol levels are recommended to be <70 mg/dL LDL cholesterol is calculated using the Vargas-NIH equation. Performed By: #### 3 016-3, 17976-0, 41987-0 ####[facility] LABIA [id number] [place] [id number] [place] Cholesterol in LDL/Cholesterol in HDL [Mass ratio] 1.66 {ratio} Normal <2.54 [facility] Comment on above: Order Comment: Speci men Type: BLOOD SPECIMENOrdering Facility: [facility] Address: [address] [place] [address] Result Comment: Refe rence: 1. National Cholesterol Education Program ATP III Guideline At-A-Glance Quick Desk Reference: National Heart, Lung, and Blood [place]. National Institutes of Health. 2001: NIH Publication No. 01-3305. 2. An International Atherosclerosis Society position paper: global recommendations for the management of dyslipidemia: executive summary, Atherosclerosis. 2014: 232(2):410-413. Performed By: #### 3 016-3, 68520-0, 60207-7 ####[facility] LABIA [id number] [place] [id number] [place] Cholesterol in VLDL [Mass/Vol] 23 mg/dL Normal <30 [facility] Comment on above: Order Comment: Carrolli men Type: BLOOD SPECIMENOrdering Facility: [facility] Address: [address] [place] [address] Performed By: #### 3 016-3, 52150-2, 11217-0 ####[facility] LABIA [id number] [address] [address] [place] Cholesterol non HDL [Mass/Vol] 90 mg/dL Normal <130 [facility] Comment on above: Order Comment: Speci men Type: BLOOD SPECIMENOrdering Facility: [facility] Address: [facility] [place] [address] Result Comment: <130 mg/dL, Optimal 130-159 mg/dL, Near optimal/above optimal 160-189 mg/dL, Borderline high 190-219 mg/dL, High >219 mg/dL, Very high Secondary prevention optimal non HDL Cholesterol levels are recommended to be <100 mg/dL Performed By: #### 3 016-3, 95572-2, 35335-2 ####[facility] LABCLIA [id number] [address] [place] Cholesterol.total/Cholester ol in HDL [Mass ratio] 3.37 {ratio} Normal <5.10 [facility] Comment on above: Order Comment: Speci men Type: BLOOD SPECIMENOrdering Facility: [facility] Address: [address] [place] [address] Performed By: #### 3 016-3, 53319-3, 48132-4 ####[facility] LABIA [id number] [address] STATES OF [facility] FASTING TIME 3 hrs Normal [facility] Comment on above: Order Comment: Speci men Type: BLOOD SPECIMENOrdering Facility: [facility] Address: [address] [place] [address] Performed By: #### 3 016-3, 31341-9, 09539-9 ####[facility] LABIA [id number] [address] [place] Triglyceride [Mass/Vol] 160 mg/dL High <150 [facility] Comment on above: Order Comment: Speci men Type: BLOOD SPECIMENOrdering Facility: [facility] Address: [address] [place] [address] Result Comment: <150 mg/dL, Normal 150-199 mg/dL, Borderline high 200-499 mg/dL, High >499 mg/dL, Very high Performed By: #### 3 016-3, 15550-5, 64247-7 ####[facility] LABIA [id number] [place] [id number] [place] TSH SerPl-aCncon 10-26-2024 TSH Qn 1.990 m[IU]/L Normal 0.270-4.200 [facility] Comment on above: Order Comment: Speci men Type: BLOOD SPECIMENOrdering Facility: [facility] Address: [address] [place] [address] Performed By: #### 3 016-3, 42000-8, 46270-0 ####[facility] LABCLIA [id number] [place] [address] [place] XR CHEST 2V FRONTAL/LATon XR CHEST 2V FRONTAL/LAT * * *Final Repor t* * * DATE OF EXAM: Oct 26 2024 12:04PM [id number] - XR CHEST 2V FRONTAL/LAT / PROCEDURE REASON: multiple diagnoses * * * * Physician Interpretation * * * * EXAMINATION: CHEST RADIOGRAPH (2 VIEW FRONTAL and LATERAL) CLINICAL HISTORY: Organ transplant candidate ESRD on dialysis (HCC) ESRD on dialysis (HCC) Pre-transplant evaluation for ESRD (end stage renal disease) MQ: XC2_6 EXAM DATE/TIME: 10/26/2024 12:04 PM COMPARISON: None available RESULT: Lines, tubes, and devices: None. Lungs and pleura: No consolidation. No lung mass. No pleural effusion. No pneumothorax. Cardiomediastinal silhouette: Normal cardiomediastinal silhouette. The heart size and pulmonary vascular pattern are within normal limits. Bones and soft tissues: Unremarkable. IMPRESSION: No acute disease identified in the lungs or mediastinum. Shuttle Van Driver: NEW Transcribe Date/Time: Oct 26 2024 4:53P Dictated by : DARÍO MAX MD This examination was interpreted and the report reviewed and electronically signed by: DARÍO MAX MD on Oct 26 2024 4:54PM EST [id number] Normal [facility] XR Chest PA and Lateralon IMPRESSION: No acute disease identified in the lungs or mediastinum. Shuttle Van Driver: PSCB Transcribe Date/Time: Oct 26 2024 4:53P Dictated by : DARÍO MAX MD This examination was interpreted and the report reviewed and electronically signed by: DARÍO MAX MD on Oct 26 2024 4:54PM EST DIVISION OF RADIOLOGY * * *Final Report* * * DATE OF EXAM: Oct 26 2024 12:04PM [id number] - XR CHEST 2V FRONTAL/LAT / PROCEDURE REASON: multiple diagnoses * * * * Physician Interpretation * * * * EXAMINATION: CHEST RADIOGRAPH (2 VIEW FRONTAL & LATERAL) CLINICAL HISTORY: Organ transplant candidate ESRD on dialysis (HCC) ESRD on dialysis (HCC) Pre-transplant evaluation for ESRD (end stage renal disease) MQ: XC2_6 EXAM DATE/TIME: 10/26/2024 12:04 PM COMPARISON: None available RESULT: Lines, tubes, and devices: None. Lungs and pleura: No consolidation. No lung mass. No pleural effusion. No pneumothorax. Cardiomediastinal silhouette: Normal cardiomediastinal silhouette. The heart size and pulmonary vascular pattern are within normal limits. Bones and soft tissues: Unremarkable. DIVISION OF RADIOLOGY Provider, [facility] [place] - 10/26/2024 * * *Final Report* * * DATE OF EXAM: Oct 26 2024 12:04PM [id number] - XR CHEST 2V FRONTAL/LAT / PROCEDURE REASON: multiple diagnoses * * * * Physician Interpretation * * * * EXAMINATION: CHEST RADIOGRAPH (2 VIEW FRONTAL & LATERAL) CLINICAL HISTORY: Organ transplant candidate ESRD on dialysis (HCC) ESRD on dialysis (HCC) Pre-transplant evaluation for ESRD (end stage renal disease) MQ: XC2_6 EXAM DATE/TIME: 10/26/2024 12:04 PM COMPARISON: None available RESULT: Lines, tubes, and devices: None. Lungs and pleura: No consolidation. No lung mass. No pleural effusion. No pneumothorax. Cardiomediastinal silhouette: Normal cardiomediastinal silhouette. The heart size and pulmonary vascular pattern are within normal limits. Bones and soft tissues: Unremarkable. IMPRESSION IMPRESSION: No acute disease identified in the lungs or mediastinum. Shuttle Van Driver: PSCB Transcribe Date/Time: Oct 26 2024 4:53P Dictated by : DARÍO MAX MD This examination was interpreted and the report reviewed and electronically signed by: DARÍO MAX MD on Oct 26 2024 4:54PM EST [facility] Radiology Study observation (narrative) [facility] XR Chest PA and LateralOrder ed By: Cc Provider on 10-26-2024 [facility] Culture, Blood (WB)on 2024 CUB Blood cultures x2, from two different sites No growth in 5 days. Normal [facility] Comment on above: Performed By: #### M 200.1000 ####[facility] [address] [place], [address] Performed By: #### L 100.0100, L500.4050, L300.3900, L300.4310, L503.6005, M200.1000 ####[facility] [address] [place], [address] Absolute lymphocyte countOrd ered By: Natsandraavat Tanphaichitr on 10-22-2024 Lymphocytes Auto (Unsp spec) [#/Vol] 0.97 10*3/uL 0.83-4.51 [facility] Anion gap in Serum or Plasma Ordered By: Natavat Tanphaichitr on 10-22-2024 Anion gap [Moles/Vol] 16 mmol/L High 5-15 [facility] Automated lymphocyte count a s percentage of total leukocytesOrdered By: Natavat Tanphaichitr on 10-22-2024 Lymphocytes/100 WBC Auto (Unsp spec) 14.1 % Low 19-41 [facility] BUN/creatinine ratioOrdered By: Natavat Tanphaichitr on 10-22-2024 Urea nitrogen/Creatinine [Mass ratio] 9.7 mg/mg Low 10-20 [facility] Basophil percentageOrdered B y: Natavat Tanphaichitr on 10-22-2024 Basophils/100 WBC (Bld) 0.6 % 0-1 [facility] CBC W/Diff, Automatedon - Absolute Lymph 0.97 X10 3/uL Normal 0.83-4.51 [facility] Comment on above: Performed By: #### L 100.0100, L500.3600 ####[facility] [address] [place], [address] Absolute Neut 5.0 X10 3/uL Normal 2.0-7.7 [facility] Comment on above: Performed By: #### L 100.0100, L500.3600 ####[facility] [address] [place], [address] Basophils/100 WBC (Bld) 0.6 % Normal 0-1 [facility] Comment on above: Performed By: #### L 100.0100, L500.3600 ####[facility] [address] [place], [address] Eosinophils/100 WBC (Bld) 2.5 % Normal 0-5 [facility] Comment on above: Performed By: #### L 100.0100, L500.3600 ####[facility] [address] [place], [address] Erythrocyte distribution width (RBC) [Ratio] 13.9 % Normal 11.6-14.6 [facility] Comment on above: Performed By: #### L 100.0100, L500.3600 ####[facility] [address] [place], [address] Hematocrit (Bld) [Volume fraction] 28.2 % Low 40-54 [facility] Comment on above: Performed By: #### L 100.0100, L500.3600 ####[facility] [address] [place], [address] Hemoglobin (Bld) [Mass/Vol] 9.6 g/dL Low 13.0-16. 5 [facility] Comment on above: Performed By: #### L 100.0100, L500.3600 ####[facility] [address] [place], [address] IG% 0.300 Normal 0.0-0.9 [facility] Comment on above: Result Comment: IG% - Immature Granulocytes (promyelocytes, myelocytes andmetamyelocytes) > 1% indicates that a LEFT SHIFT is Present. Performed By: #### L 100.0100, L500.3600 ####[facility] [address] [place], [address] Lymphocytes/100 WBC (Bld) 14.1 % Low 19-41 [facility] Comment on above: Performed By: #### L 100.0100, L500.3600 ####[facility] [address] [place], [address] MCH (RBC) [Entitic mass] 30.4 pg Normal 27.0-32.0 [facility] Comment on above: Performed By: #### L 100.0100, L500.3600 ####[facility] [address] [place], [address] MCHC (RBC) [Mass/Vol] 34.0 g/dL Normal 32-36 [facility] Comment on above: Performed By: #### L 100.0100, L500.3600 ####[facility] [address] [place], [address] MCV (RBC) [Entitic vol] 89.2 fL Normal 80-94 [facility] Comment on above: Performed By: #### L 100.0100, L500.3600 ####[facility] [address] [place], [address] Monocytes/100 WBC (Bld) 9.4 % Normal 0-10 [facility] Comment on above: Performed By: #### L 100.0100, L500.3600 ####[facility] [address] [place], [address] Neutrophils/100 WBC (Bld) 73.1 % High 47-70 [facility] Comment on above: Performed By: #### L 100.0100, L500.3600 ####[facility] [address] [place], [address] Nucleated RBC (Bld) [#/Vol] 0 10*3/uL Normal 0-5 [facility] Comment on above: Performed By: #### L 100.0100, L500.3600 ####[facility] [address] [place], [address] Platelet mean volume (Bld) [Entitic vol] 9.2 fL Normal 6.2-12.0 [facility] Comment on above: Performed By: #### L 100.0100, L500.3600 ####[facility] [address] [place], [address] Platelets (Bld) [#/Vol] 237 10*3/uL Normal 150-450 [facility] Comment on above: Performed By: #### L 100.0100, L500.3600 ####[facility] [address] [place], [address] RBC (Bld) [#/Vol] 3.16 10*6/uL Low 4.6-6.2 [place] Comment on above: Performed By: #### L 100.0100, L500.3600 ####[facility] [address] [place], [address] RDW SD 45.6 fl High 35.1-43.9 [facility] Comment on above: Performed By: #### L 100.0100, L500.3600 ####[facility] [address] [place], [address] WBC (Bld) [#/Vol] 6.9 10*3/uL Normal 4.4-11.0 [facility] Comment on above: Performed By: #### L 100.0100, L500.3600 ####[facility] [address] [place], [address] Carbon dioxide, total [Moles /volume] in Central venous bloodOrdered By: Domenica Salgado on 10-22-2024 CO2 [Moles/Vol] 22.5 mmol/L 21.0-32.0 [facility] Chest PA and Lateralon 10-22 Chest PA and Lateral Normal [facility] Chloride assayOrdered By: Savanna louisemichael Salgado on 10-22-2024 Chloride [Moles/Vol] 95 mmol/L Low 98-108 [facility] Discharge Instructionon - Discharge Instruction Normal [facility] Eosinophil percentageOrdered By: Domenica Salgado on 10-22-2024 Eosinophils/100 WBC (Bld) 2.5 % 0-5 [facility] Erythrocyte distribution wid th ratioOrdered By: Valerienury Salgado on 10-22-2024 Erythrocyte distribution width (RBC) [Ratio] 13.9 % 11.6-14.6 [facility] Erythrocyte distribution wid th standard deviationOrdered By: Domenica Salgado on 10-22-2024 Erythrocyte distribution width (RBC) [Ratio] 45.6 fl High 35.1-43.9 [facility] Glomerular filtration rate ( GFR) estimation/1.73 sq m using serum, plasma, or whole bOrdered By: Domenica Salgado on 10-22-2024 GFR/1.73 sq M.predicted among non-blacks MDRD (S/P/Bld) [Vol rate/Area] 10 mL/min/{1.73_m2} Low >60 [facility] Hematocrit Auto (Bld) [Volum e fraction]Ordered By: Domenica Salgado on 10-22-2024 Hematocrit (Bld) [Volume fraction] 28.2 % Low 40-54 [facility] Hemoglobin measurementOrdere d By: Domenica Salgado on 10-22-2024 Hemoglobin (Bld) [Mass/Vol] 9.6 g/dL Low 13.0-16. 5 [facility] Immature granulocytes/100 WB C Auto (Bld)Ordered By: Domenica Salgado on 10-22-2024 Immature granulocytes/100 WBC (Bld) 0.300 % 0.0-0.9 [facility] MCV (mean corpuscular volume ) determinationOrdered By: Domenica Salgado on 10-22-2024 MCV (RBC) [Entitic vol] 89.2 fL 80-94 [facility] Mean corpuscular hemoglobin (MCH) determinationOrdered By: Domenica Dunnichiprecious on 10-22-2024 MCH (RBC) [Entitic mass] 30.4 pg 27.0-32.0 [facility] Monocyte percentageOrdered B y: Natsandracarlost Vikramphaichitr on 10-22-2024 Monocytes/100 WBC (Bld) 9.4 % 0-10 [facility] Neutrophil percentageOrdered By: Natcarlost Tanphaichitr on 10-22-2024 Neutrophils/100 WBC (Bld) 73.1 % High 47-70 [facility] Platelet countOrdered By: Savanna llamasjoekeyshawn Suephaichiprecious on 10-22-2024 Platelets (Bld) [#/Vol] 237 10*3/uL 150-450 [facility] Potassium measurement (mass/ volume)Ordered By: Valerienury Salgado on 10-22-2024 Potassium (Unsp spec) [Mass/Vol] 4.0 mmol/L 3.3-5.1 [facility] RBC Auto (Bld) [#/Vol]Ordere d By: Valerienury Suephaichitr on 10-22-2024 RBC (Bld) [#/Vol] 3.16 10*6/uL Low 4.6-6.2 [place] Renal Profileon 10-22-2024 Albumin [Mass/Vol] 3.7 g/dL Normal 3.5-5.0 [facility] Comment on above: Performed By: #### L 100.0100, L500.3600 ####[facility] [address] [place], [place], [address] BUN/CRE 9.7 RATIO Low 10-20 [facility] Comment on above: Performed By: #### L 100.0100, L500.3600 ####[facility] [address] [place], [place], [address] Calcium [Mass/Vol] 9.5 mg/dL Normal 7.6-11.0 [facility] Comment on above: Performed By: #### L 100.0100, L500.3600 ####[facility] [address] [place], [address] Chloride [Moles/Vol] 95 mmol/L Low 98-108 [facility] Comment on above: Performed By: #### L 100.0100, L500.3600 ####[facility] [address] [place], [address] CO2 [Moles/Vol] 22.5 mmol/L Normal 21.0-32.0 [facility] Comment on above: Performed By: #### L 100.0100, L500.3600 ####[facility] [address] [place], [address] Creatinine [Mass/Vol] 6.85 mg/dL High 0.70-1.20 [facility] Comment on above: Performed By: #### L 100.0100, L500.3600 ####[facility] [address] [place], [address] ECRCL 14.96 ml/min Low 50-250 [facility] Comment on above: Performed By: #### L 100.0100, L500.3600 ####[facility] [address] [place], [address] GAP 16 High 5-15 [facility] Comment on above: Performed By: #### L 100.0100, L500.3600 ####[facility] [address] [place], [address] GFR/1.73 sq M.predicted among non-blacks MDRD (S/P/Bld) [Vol rate/Area] 10 mL/min/{1.73_m2} Low >60 [facility] Comment on above: Result Comment: mL/m in/1.73m2 CKD-EPI Creatinine Equation (2020) Performed By: #### L 100.0100, L500.3600 ####[facility] [address] [place], [address] Glucose [Mass/Vol] 190 mg/dL High 70-99 [facility] Comment on above: Performed By: #### L 100.0100, L500.3600 ####[facility] [address] [place], [address] Phosphate [Mass/Vol] 5.3 mg/dL High 2.7-4.5 [facility] Comment on above: Performed By: #### L 100.0100, L500.3600 ####[facility] [address] [place], [address] Potassium [Moles/Vol] 4.0 mmol/L Normal 3.3-5.1 [facility] Comment on above: Performed By: #### L 100.0100, L500.3600 ####[facility] [address] [place], [address] Sodium [Moles/Vol] 134 mmol/L Normal 133-145 [facility] Comment on above: Performed By: #### L 100.0100, L500.3600 ####[facility] [address] [place], [address] Urea nitrogen [Mass/Vol] 66 mg/dL High 4-19 [facility] Comment on above: Performed By: #### L 100.0100, L500.3600 ####[facility] [address] [place], [address] Serum creatinine measurement (mass/volume)Ordered By: Natthavat Tanphaichitr on 10-22-2024 Creatinine [Mass/Vol] 6.85 mg/dL High 0.70-1.20 [facility] Serum glucose measurement (m ass/volume)Ordered By: Natthavat Tanphaichitr on 10-22-2024 Glucose [Mass/Vol] 190 mg/dL High 70-99 [facility] Serum or plasma albumin jessie urement (mass/volume)Ordered By: Domenica Salgado on 10-22-2024 Albumin [Mass/Vol] 3.7 g/dL 3.5-5.0 [facility] Serum or plasma calcium jessie urement (mass/volume)Ordered By: Valerienury Salgado on 10-22-2024 Calcium [Mass/Vol] 9.5 mg/dL 7.6-11.0 [facility] Serum or plasma urea nitroge n measurement (mass/volume)Ordered By: Valerieselect [facility]michael Salgado on 10-22-2024 Urea nitrogen [Mass/Vol] 66 mg/dL High 4-19 [facility] Sodium levelOrdered By: Aaliyah Salgado on 10-22-2024 Sodium [Moles/Vol] 134 mmol/L 133-145 [facility] White blood cell (WBC) count Ordered By: Valerieselect [facility]mich[facility] on 10-22-2024 WBC (Bld) [#/Vol] 6.9 10*3/uL 4.4-11.0 [facility] Basic Metabolic Profile (BMP )on 10-21-2024 BUN/CRE 8.5 RATIO Low 10-20 [facility] Comment on above: Performed By: #### L 500.2500 ####[facility] [address] [facility] [address] [facility] [address] Calcium [Mass/Vol] 9.2 mg/dL Normal 7.6-11.0 [facility] Comment on above: Performed By: #### L 500.2500 ####[facility] [address] [place], [address] Chloride [Moles/Vol] 92 mmol/L Low 98-108 [facility] Comment on above: Performed By: #### L 500.2500 ####[facility] [address] [place], [address] CO2 [Moles/Vol] 20.3 mmol/L Low 21.0-32.0 [facility] Comment on above: Performed By: #### L 500.2500 ####[facility] [address] [place], [address] Creatinine [Mass/Vol] 8.12 mg/dL Invalid Interpretation Code 0.70-1.20 [facility] Comment on above: Result Comment: Crit ical Result(s) Called at 0842 by: ROSA ISELA KNOTT. ??Results read back by same. Performed By: #### L 500.2500 ####[facility] [address] [place], [address] ECRCL 12.62 ml/min Low 50-250 [facility] Comment on above: Performed By: #### L 500.2500 ####[facility] [address] [place], [address] GAP 19 High 5-15 [facility] Comment on above: Performed By: #### L 500.2500 ####[facility] [address] [place], [address] GFR/1.73 sq M.predicted among non-blacks MDRD (S/P/Bld) [Vol rate/Area] 8 mL/min/{1.73_m2} Low >60 [facility] Comment on above: Result Comment: mL/m in/1.73m2 CKD-EPI Creatinine Equation (2020) Performed By: #### L 500.2500 ####[facility] [address] [place], [address] Glucose [Mass/Vol] 269 mg/dL High 70-99 [facility] Comment on above: Performed By: #### L 500.2500 ####[facility] [address] [place], [address] Potassium [Moles/Vol] 5.0 mmol/L Normal 3.3-5.1 [facility] Comment on above: Performed By: #### L 500.2500 ####[facility] [address] [place], [address] Sodium [Moles/Vol] 131 mmol/L Low 133-145 [facility] Comment on above: Performed By: #### L 500.2500 ####[facility] [address] [place], [address] Urea nitrogen [Mass/Vol] 69 mg/dL High 4-19 [facility] Comment on above: Performed By: #### L 500.2500 ####[facility] [address] [place], [address] Bedside Glucoseon --2024 FINGERSTICK GLU 303 mg/dL High 74-106 [facility] Comment on above: Result Comment: EDUARDO GEMENT OF PATIENT CARE PER NURSING PROTOCOL Performed By: #### L 501.080 ####[facility] [address] [place], [address] FINGERSTICK GLU 348 mg/dL High 74-106 [facility] Comment on above: Result Comment: EDUARDO GEMENT OF PATIENT CARE PER NURSING PROTOCOL Performed By: #### L 501.080 ####[facility] [address] [place], [address] CBC W/Diff, Automatedon 07-2 Absolute Lymph 0.88 X10 3/uL Normal 0.83-4.51 [facility] Comment on above: Performed By: #### L 100.0100 ####[facility] [address] [place], [address] Absolute Neut 8.3 X10 3/uL High 2.0-7.7 [facility] Comment on above: Performed By: #### L 100.0100 ####[facility] [address] [place], [address] Basophils/100 WBC (Bld) 0.6 % Normal 0-1 [facility] Comment on above: Performed By: #### L 100.0100 ####[facility] [address] [place], [address] Eosinophils/100 WBC (Bld) 2.2 % Normal 0-5 [facility] Comment on above: Performed By: #### L 100.0100 ####[facility] [address] [place], [address] Erythrocyte distribution width (RBC) [Ratio] 14.1 % Normal 11.6-14.6 [facility] Comment on above: Performed By: #### L 100.0100 ####[facility] [address] [place], [address] Hematocrit (Bld) [Volume fraction] 28.1 % Low 40-54 [facility] Comment on above: Performed By: #### L 100.0100 ####[facility] [address] [place], [address] Hemoglobin (Bld) [Mass/Vol] 9.5 g/dL Low 13.0-16. 5 [facility] Comment on above: Performed By: #### L 100.0100 ####[facility] [address] [place], [address] IG% 0.600 Normal 0.0-0.9 [facility] Comment on above: Result Comment: IG% - Immature Granulocytes (promyelocytes, myelocytes andmetamyelocytes) > 1% indicates that a LEFT SHIFT is Present. Performed By: #### L 100.0100 ####[facility] [address] [place], [address] Lymphocytes/100 WBC (Bld) 8.6 % Low 19-41 [facility] Comment on above: Performed By: #### L 100.0100 ####[facility] [address] [place], [address] MCH (RBC) [Entitic mass] 30.9 pg Normal 27.0-32.0 [facility] Comment on above: Performed By: #### L 100.0100 ####[facility] [address] [place], [address] MCHC (RBC) [Mass/Vol] 33.8 g/dL Normal 32-36 [facility] Comment on above: Performed By: #### L 100.0100 ####[facility] [address] [place], [address] MCV (RBC) [Entitic vol] 91.5 fL Normal 80-94 [facility] Comment on above: Performed By: #### L 100.0100 ####[facility] [address] [place], [address] Monocytes/100 WBC (Bld) 6.9 % Normal 0-10 [facility] Comment on above: Performed By: #### L 100.0100 ####[facility] [address] [place], [address] Neutrophils/100 WBC (Bld) 81.1 % High 47-70 [facility] Comment on above: Performed By: #### L 100.0100 ####[facility] [address] [place], [address] Nucleated RBC (Bld) [#/Vol] 0 10*3/uL Normal 0-5 [facility] Comment on above: Performed By: #### L 100.0100 ####[facility] [address] [place], [address] Platelet mean volume (Bld) [Entitic vol] 9.4 fL Normal 6.2-12.0 [facility] Comment on above: Performed By: #### L 100.0100 ####[facility] [address] [place], [address] Platelets (Bld) [#/Vol] 195 10*3/uL Normal 150-450 [facility] Comment on above: Performed By: #### L 100.0100 ####[facility] [address] [place], [address] RBC (Bld) [#/Vol] 3.07 10*6/uL Low 4.6-6.2 [place] Comment on above: Performed By: #### L 100.0100 ####[facility] [address] [place], [address] RDW SD 46.7 fl High 35.1-43.9 [facility] Comment on above: Performed By: #### L 100.0100 ####[facility] [address] [place], [address] WBC (Bld) [#/Vol] 10.3 10*3/uL Normal 4.4-11.0 [place] Comment on above: Performed By: #### L 100.0100 ####[facility] [address] [place], [address] Gl[facility] at [facility] deOrdered By: Chris Emerson on 10-21-2024 Glucose [Mass/Vol] 303 mg/dL High 74-106 [facility] Urine Cultureon 10-21-2024 URC #1,2 Below infection level. GPC Poss Enterococcus sp [place] Count <1000 Mixed Gram Positive Organisms Mixed Gram Positive Organisms Normal [facility] Comment on above: Performed By: #### M 100.2200, L400.0001 ####[facility] [address] [place], [address] Basic Metabolic Profile (BMP )on 10-20-2024 Creatinine [Mass/Vol] 9.79 mg/dL Invalid Interpretation Code 0.70-1.20 [facility] Comment on above: Result Comment: Crit ical Result(s) Called at: by:??Results read back bysame.Critical Result(s) Called at: 10/19/2024-08:03 by: Ryne Mast.??Results read back by same.Critical Result(s) Called at: by:??Results read back bysame. AMENDED REPORT 10/20/2445 CREAT,SERUM previously reported as: 9.79 *H mg/dLCritical Result(s) Called at: by:??Results read back bysame. Performed By: #### L 100.0100, L500.2500 ####[facility] [address] [place], [place], [address] Urea nitrogen [Mass/Vol] 103 mg/dL Invalid Interpretation Code 4 [facility] Comment on above: Result Comment: Crit ical Result(s) Called at: 10/19/2024-:03 by: Ryne Mast.??Results read back by same.Critical Result(s) Called at: 10/19/2024:03 by: Ryne Mast.??Results read back by same.Critical Result(s) Called at: by:??Results read back bysame. AMENDED REPORT 10/20/2445 BUN previously reported as: 103 *H mg/dLCritical Result(s) Called at: 10/19/202408:03 by: Ryne Mast.??Results read back by same. Performed By: #### L 100.0100, L500.2500 ####[facility] [address] [place], [place], [address] Electrocardiogram reportOrde red By: Lio Cross on 10-20-2024 EKG study [facility] Other Phone: 12 Lead EKGon 10-19-2024 12 Lead EKG Normal [facility] Absolute lymphocyte countOrd ered By: Ford Patricia on 10-19-2024 Lymphocytes Auto (Unsp spec) [#/Vol] 1.13 10*3/uL 0.83-4.51 [facility] Activated partial thrombopla stin time (aPTT) in platelet poor plasma by coagulation aOrdered By: Ford Patricia on 10-19-2024 aPTT Coag (PPP) [Time] 25.3 s 24.1-36.2 [facility] Anion gap in Serum or Plasma Ordered By: Ford Patricia on 10-19-2024 Anion gap [Moles/Vol] 22 mmol/L High 5-15 [facility] Automated lymphocyte count a s percentage of total leukocytesOrdered By: Ford Patricia on 10-19-2024 Lymphocytes/100 WBC Auto (Unsp spec) 5.9 % Low 19-41 [facility] BUN/creatinine ratioOrdered By: Ford Patricia on 10-19-2024 Urea nitrogen/Creatinine [Mass ratio] 10.6 mg/mg 10-20 [facility] Basophil percentageOrdered B y: Ford Patricia on 10-19-2024 Basophils/100 WBC (Bld) 0.5 % 0-1 [facility] Bedside Glucoseon 10-19-2024 FINGERSTICK GLU 112 mg/dL High 74-106 [facility] Comment on above: Result Comment: EDUARDO GEMENT OF PATIENT CARE PER NURSING PROTOCOL Performed By: #### L 501.080 ####[facility] [address] [place], [place], [address] Beta-Hydroxbytyrateon 2024 BETA-HYDROXYBUT 0.9 mmol/L High 0.0-0.3 [facility] Comment on above: Performed By: #### L 501.6901 ####[facility] [address] [place], [place], [address] Beta-hydroxybutyrateOrdered By: Ford Patricia on 10-19-2024 Beta hydroxybutyrate [Mass/Vol] 0.9 mmol/L High 0.0-0.3 [facility] Bilirubin Test strip Ql (U)O rdered By: Ford Patricia on 10-19-2024 Bilirubin Ql (U) Negative Negative [facility] Bilirubin, totalOrdered By: Ford Patricia on 10-19-2024 Bilirubin [Mass/Vol] 0.35 mg/dL 0.00-1.30 [facility] CBC W/Diff, Automatedon 09-29 Absolute Lymph 1.30 X10 3/uL Normal 0.83-4.51 [facility] Comment on above: Performed By: #### L 100.0100, L500.2500 ####[facility] [address] [place], [address] Absolute Neut 14.2 X10 3/uL High 2.0-7.7 [facility] Comment on above: Performed By: #### L 100.0100, L500.2500 ####[facility] [address] [place], [address] Basophils/100 WBC (Bld) 0.5 % Normal 0-1 [facility] Comment on above: Performed By: #### L 100.0100, L500.2500 ####[facility] [address] [place], [address] Eosinophils/100 WBC (Bld) 0.5 % Normal 0-5 [facility] Comment on above: Performed By: #### L 100.0100, L500.2500 ####[facility] [address] [place], [address] Erythrocyte distribution width (RBC) [Ratio] 14.3 % Normal 11.6-14.6 [facility] Comment on above: Performed By: #### L 100.0100, L500.2500 ####[facility] [address] [place], [address] Hematocrit (Bld) [Volume fraction] 28.8 % Low 40-54 [facility] Comment on above: Performed By: #### L 100.0100, L500.2500 ####[facility] [address] [place], [address] Hemoglobin (Bld) [Mass/Vol] 9.6 g/dL Low 13.0-16. 5 [facility] Comment on above: Performed By: #### L 100.0100, L500.2500 ####[facility] [address] [place], [address] IG% 0.500 Normal 0.0-0.9 [facility] Comment on above: Result Comment: IG% - Immature Granulocytes (promyelocytes, myelocytes andmetamyelocytes) > 1% indicates that a LEFT SHIFT is Present. Performed By: #### L 100.0100, L500.2500 ####[facility] [address] [place], [address] Lymphocytes/100 WBC (Bld) 7.8 % Low 19-41 [facility] Comment on above: Performed By: #### L 100.0100, L500.2500 ####[facility] [address] [place], [address] MCH (RBC) [Entitic mass] 30.3 pg Normal 27.0-32.0 [facility] Comment on above: Performed By: #### L 100.0100, L500.2500 ####[facility] [address] [place], [address] MCHC (RBC) [Mass/Vol] 33.3 g/dL Normal 32-36 [facility] Comment on above: Performed By: #### L 100.0100, L500.2500 ####[facility] [address] [place], [address] MCV (RBC) [Entitic vol] 90.9 fL Normal 80-94 [facility] Comment on above: Performed By: #### L 100.0100, L500.2500 ####[facility] [address] [place], [address] Monocytes/100 WBC (Bld) 5.9 % Normal 0-10 [facility] Comment on above: Performed By: #### L 100.0100, L500.2500 ####[facility] [address] [place], [address] Neutrophils/100 WBC (Bld) 84.8 % High 47-70 [facility] Comment on above: Performed By: #### L 100.0100, L500.2500 ####[facility] [address] [place], [address] Nucleated RBC (Bld) [#/Vol] 0 10*3/uL Normal 0-5 [facility] Comment on above: Performed By: #### L 100.0100, L500.2500 ####[facility] [address] [place], [address] Platelet mean volume (Bld) [Entitic vol] 9.7 fL Normal 6.2-12.0 [facility] Comment on above: Performed By: #### L 100.0100, L500.2500 ####[facility] [address] [place], [address] Platelets (Bld) [#/Vol] 226 10*3/uL Normal 150-450 [facility] Comment on above: Performed By: #### L 100.0100, L500.2500 ####[facility] [address] [place], [address] RBC (Bld) [#/Vol] 3.17 10*6/uL Low 4.6-6.2 [place] Comment on above: Performed By: #### L 100.0100, L500.2500 ####[facility] [address] [place], [address] RDW SD 47.6 fl High 35.1-43.9 [facility] Comment on above: Performed By: #### L 100.0100, L500.2500 ####[facility] [address] [place], [address] WBC (Bld) [#/Vol] 16.7 10*3/uL High 4.4-11.0 [place] Comment on above: Performed By: #### L 100.0100, L500.2500 ####[facility] [address] [place], [address] Absolute Lymph 1.13 X10 3/uL Normal 0.83-4.51 [facility] Comment on above: Performed By: #### L 100.0100, L500.4050, L300.3900, L300.4310, L503.6005, M200.1000 ####[facility] [address] [place], [address] Absolute Neut 16.7 X10 3/uL High 2.0-7.7 [facility] Comment on above: Performed By: #### L 100.0100, L500.4050, L300.3900, L300.4310, L503.6005, M200.1000 ####[facility] [address] [place], [address] Basophils/100 WBC (Bld) 0.5 % Normal 0-1 [facility] Comment on above: Performed By: #### L 100.0100, L500.4050, L300.3900, L300.4310, L503.6005, M200.1000 ####[facility] [address] [place], [address] Eosinophils/100 WBC (Bld) 0.7 % Normal 0-5 [facility] Comment on above: Performed By: #### L 100.0100, L500.4050, L300.3900, L300.4310, L503.6005, M200.1000 ####[facility] [address] [place], [address] Erythrocyte distribution width (RBC) [Ratio] 14.5 % Normal 11.6-14.6 [facility] Comment on above: Performed By: #### L 100.0100, L500.4050, L300.3900, L300.4310, L503.6005, M200.1000 ####[facility] [address] [place], [address] Hematocrit (Bld) [Volume fraction] 31.3 % Low 40-54 [facility] Comment on above: Performed By: #### L 100.0100, L500.4050, L300.3900, L300.4310, L503.6005, M200.1000 ####[facility] [address] [place], [address] Hemoglobin (Bld) [Mass/Vol] 10.8 g/dL Low 13.0-16. 5 [facility] Comment on above: Performed By: #### L 100.0100, L500.4050, L300.3900, L300.4310, L503.6005, M200.1000 ####[facility] [address] [place], [address] IG% 0.500 Normal 0.0-0.9 [facility] Comment on above: Result Comment: IG% - Immature Granulocytes (promyelocytes, myelocytes andmetamyelocytes) > 1% indicates that a LEFT SHIFT is Present. Performed By: #### L 100.0100, L500.4050, L300.3900, L300.4310, L503.6005, M200.1000 ####[facility] [address] [place], [address] Lymphocytes/100 WBC (Bld) 5.9 % Low 19-41 [facility] Comment on above: Performed By: #### L 100.0100, L500.4050, L300.3900, L300.4310, L503.6005, M200.1000 ####[facility] [address] [place], [address] MCH (RBC) [Entitic mass] 30.7 pg Normal 27.0-32.0 [facility] Comment on above: Performed By: #### L 100.0100, L500.4050, L300.3900, L300.4310, L503.6005, M200.1000 ####[facility] [address] [place], [address] MCHC (RBC) [Mass/Vol] 34.5 g/dL Normal 32-36 [facility] Comment on above: Performed By: #### L 100.0100, L500.4050, L300.3900, L300.4310, L503.6005, M200.1000 ####[facility] [address] [place], [address] MCV (RBC) [Entitic vol] 88.9 fL Normal 80-94 [facility] Comment on above: Performed By: #### L 100.0100, L500.4050, L300.3900, L300.4310, L503.6005, M200.1000 ####[facility] [address] [place], [address] Monocytes/100 WBC (Bld) 5.3 % Normal 0-10 [facility] Comment on above: Performed By: #### L 100.0100, L500.4050, L300.3900, L300.4310, L503.6005, M200.1000 ####[facility] [address] [place], [address] Neutrophils/100 WBC (Bld) 87.1 % High 47-70 [facility] Comment on above: Performed By: #### L 100.0100, L500.4050, L300.3900, L300.4310, L503.6005, M200.1000 ####[facility] [address] [place], [address] Nucleated RBC (Bld) [#/Vol] 0 10*3/uL Normal 0-5 [facility] Comment on above: Performed By: #### L 100.0100, L500.4050, L300.3900, L300.4310, L503.6005, M200.1000 ####[facility] [address] [place], [address] Platelet mean volume (Bld) [Entitic vol] 9.4 fL Normal 6.2-12.0 [facility] Comment on above: Performed By: #### L 100.0100, L500.4050, L300.3900, L300.4310, L503.6005, M200.1000 ####[facility] [address] [place], [address] Platelets (Bld) [#/Vol] 269 10*3/uL Normal 150-450 [facility] Comment on above: Performed By: #### L 100.0100, L500.4050, L300.3900, L300.4310, L503.6005, M200.1000 ####[facility] [address] [place], [address] RBC (Bld) [#/Vol] 3.52 10*6/uL Low 4.6-6.2 [place] Comment on above: Performed By: #### L 100.0100, L500.4050, L300.3900, L300.4310, L503.6005, M200.1000 ####[facility] [address] [place], [address] RDW SD 46.5 fl High 35.1-43.9 [facility] Comment on above: Performed By: #### L 100.0100, L500.4050, L300.3900, L300.4310, L503.6005, M200.1000 ####[facility] [address] [place], [address] WBC (Bld) [#/Vol] 19.1 10*3/uL High 4.4-11.0 [place] Comment on above: Performed By: #### L 100.0100, L500.4050, L300.3900, L300.4310, L503.6005, M200.1000 ####[facility] [address] [place], [address] CO2 (BldV) [Moles/Vol]Ordere d By: Ford Patricia on 10-19-2024 CO2 [Moles/Vol] 25 mmol/L 23-33 [facility] Carbon dioxide, total [Moles /volume] in Central venous bloodOrdered By: Ford Patricia on 10-19-2024 CO2 [Moles/Vol] 20.6 mmol/L Low 21.0-32.0 [facility] Chest PA and Lateralon 10-19 Chest PA and Lateral Normal [facility] Chloride assayOrdered By: Woody Patricia on 10-19-2024 Chloride [Moles/Vol] 93 mmol/L Low 98-108 [facility] Comprehensive Metabolic Prof ilon 10-19-2024 Albumin [Mass/Vol] 4.4 g/dL Normal 3.5-5.0 [facility] Comment on above: Performed By: #### L 100.0100, L500.4050, L300.3900, L300.4310, L503.6005, M200.1000 ####[facility] [address] [place], [address] Albumin/Globulin [Mass ratio] 1.8 {ratio} Normal 0.9-2.4 [facility] Comment on above: Performed By: #### L 100.0100, L500.4050, L300.3900, L300.4310, L503.6005, M200.1000 ####[facility] [address] [place], [address] ALK PHOS 78 U/L Normal 40-129 [facility] Comment on above: Performed By: #### L 100.0100, L500.4050, L300.3900, L300.4310, L503.6005, M200.1000 ####[facility] [address] [place], [address] ALT [Catalytic activity/Vol] 23 U/L Normal <=46 [facility] Comment on above: Performed By: #### L 100.0100, L500.4050, L300.3900, L300.4310, L503.6005, M200.1000 ####[facility] [address] [place], [address] AST [Catalytic activity/Vol] 95 U/L High <=37 [facility] Comment on above: Performed By: #### L 100.0100, L500.4050, L300.3900, L300.4310, L503.6005, M200.1000 ####[facility] [address] [place], [address] Bilirubin [Mass/Vol] 0.35 mg/dL Normal 0.00-1.30 [facility] Comment on above: Performed By: #### L 100.0100, L500.4050, L300.3900, L300.4310, L503.6005, M200.1000 ####[facility] [address] [place], [address] BUN/CRE 10.6 RATIO Normal 10-20 [facility] Comment on above: Performed By: #### L 100.0100, L500.4050, L300.3900, L300.4310, L503.6005, M200.1000 ####[facility] [address] [place], [address] Calcium [Mass/Vol] 10.1 mg/dL Normal 7.6-11.0 [facility] Comment on above: Performed By: #### L 100.0100, L500.4050, L300.3900, L300.4310, L503.6005, M200.1000 ####[facility] [address] [place], [address] Chloride [Moles/Vol] 93 mmol/L Low 98-108 [facility] Comment on above: Performed By: #### L 100.0100, L500.4050, L300.3900, L300.4310, L503.6005, M200.1000 ####[facility] [address] [place], [address] CO2 [Moles/Vol] 20.6 mmol/L Low 21.0-32.0 [facility] Comment on above: Performed By: #### L 100.0100, L500.4050, L300.3900, L300.4310, L503.6005, M200.1000 ####[facility] [address] [place], [address] Creatinine [Mass/Vol] 9.78 mg/dL Invalid Interpretation Code 0.70-1.20 [facility] Comment on above: Result Comment: Crit ical Result(s) Called at: 0245 by:??LONNIE KURTZ. Results read back by same. Performed By: #### L 100.0100, L500.4050, L300.3900, L300.4310, L503.6005, M200.1000 ####[facility] [address] [place], [place], [id number](246) ECRCL 11.30 ml/min Low 50-250 [facility] Comment on above: Performed By: #### L 100.0100, L500.4050, L300.3900, L300.4310, L503.6005, M200.1000 ####[facility] [address] [place], [address] GAP 22 High 5-15 [facility] Comment on above: Performed By: #### L 100.0100, L500.4050, L300.3900, L300.4310, L503.6005, M200.1000 ####[facility] [address] [place], [address] GFR/1.73 sq M.predicted among non-blacks MDRD (S/P/Bld) [Vol rate/Area] 6 mL/min/{1.73_m2} Low >60 [facility] Comment on above: Result Comment: mL/m in/1.73m2 CKD-EPI Creatinine Equation (2020) Performed By: #### L 100.0100, L500.4050, L300.3900, L300.4310, L503.6005, M200.1000 ####[facility] [address] [place], [address] Globulin (S) [Mass/Vol] 2.5 g/dL Normal 2.2-4.2 [facility] Comment on above: Performed By: #### L 100.0100, L500.4050, L300.3900, L300.4310, L503.6005, M200.1000 ####[facility] [address] [place], [address] Glucose [Mass/Vol] 118 mg/dL High 70-99 [facility] Comment on above: Performed By: #### L 100.0100, L500.4050, L300.3900, L300.4310, L503.6005, M200.1000 ####[facility] [address] [place], [address] Potassium [Moles/Vol] 4.8 mmol/L Normal 3.3-5.1 [facility] Comment on above: Performed By: #### L 100.0100, L500.4050, L300.3900, L300.4310, L503.6005, M200.1000 ####[facility] [address] [place], [address] Sodium [Moles/Vol] 135 mmol/L Normal 133-145 [facility] Comment on above: Performed By: #### L 100.0100, L500.4050, L300.3900, L300.4310, L503.6005, M200.1000 ####[facility] [address] [place], [address] T PROT 6.9 g/dL Normal 5.9-8.4 [facility] Comment on above: Performed By: #### L 100.0100, L500.4050, L300.3900, L300.4310, L503.6005, M200.1000 ####[facility] [address] [place], [address] Urea nitrogen [Mass/Vol] 104 mg/dL Invalid Interpretation Code 07-17 [facility] Comment on above: Result Comment: Crit ical Result(s) Called at: 0243 by: LONNIE PEARSON TO [facility].??Results read back by same. Performed By: #### L 100.0100, L500.4050, L300.3900, L300.4310, L503.6005, M200.1000 ####[facility] [address] [place], [address] Consultation - Nephrologyon 10-19-2024 Consultation - Nephrology Normal [facility] Emergency Department Summary on 10-19-2024 Emergency Department Summary Normal [facility] Eosinophil percentageOrdered By: Ford Patricia on 10-19-2024 Eosinophils/100 WBC (Bld) 0.7 % 0-5 [facility] Erythrocyte distribution wid th ratioOrdered By: Ford Patricia on 10-19-2024 Erythrocyte distribution width (RBC) [Ratio] 14.5 % 11.6-14.6 [facility] Erythrocyte distribution wid th standard deviationOrdered By: Ford Patricia on 10-19-2024 Erythrocyte distribution width (RBC) [Ratio] 46.5 fl High 35.1-43.9 [facility] Glomerular filtration rate ( GFR) estimation/1.73 sq m using serum, plasma, or whole bOrdered By: Ford Patricia on 10-19-2024 GFR/1.73 sq M.predicted among non-blacks MDRD (S/P/Bld) [Vol rate/Area] 6 mL/min/{1.73_m2} Low >60 [facility] de[facility]dered By: Ford Patricia on 10-19-2024 Glucose [Mass/Vol] 112 mg/dL High 74-106 [facility] Hematocrit Auto (Bld) [Volum e fraction]Ordered By: Ford Patricia on 10-19-2024 Hematocrit (Bld) [Volume fraction] 31.3 % Low 40-54 [facility] Hemoglobin measurementOrdere d By: Ford Patricia on 10-19-2024 Hemoglobin (Bld) [Mass/Vol] 10.8 g/dL Low 13.0-16. 5 [facility] Immature granulocytes/100 WB C Auto (Bld)Ordered By: Ford Patricia on 10-19-2024 Immature granulocytes/100 WBC (Bld) 0.500 % 0.0-0.9 [facility] Ketones Test strip Ql (U)Ord ered By: Ford Patricia on 10-19-2024 Ketones Ql (U) Negative Negative [facility] Lactic Acidon 10-19-2024 Lactate [Moles/Vol] 1.1 mmol/L Normal 0.0-2.0 [place] Comment on above: Order Comment: Y Performed By: #### L 100.0100, L500.4050, L300.3900, L300.4310, L503.6005, M200.1000 ####[facility] [address] [place], [place], [id number] MCV (mean corpuscular volume ) determinationOrdered By: Ford Patricia on 10-19-2024 MCV (RBC) [Entitic vol] 88.9 fL 80-94 [facility] Mean corpuscular hemoglobin (MCH) determinationOrdered By: Ford Patricia on 10-19-2024 MCH (RBC) [Entitic mass] 30.7 pg 27.0-32.0 [facility] Monocyte percentageOrdered B y: Ford Patricia on 10-19-2024 Monocytes/100 WBC (Bld) 5.3 % 0-10 [facility] Mucus LM Ql (Urine sed)Order ed By: Ford Patricia on 07-22-2025 Mucus Ql (Urine sed) 0 SEEN /hpf [facility] Neutrophil percentageOrdered By: Ford Patricia on 10-19-2024 Neutrophils/100 WBC (Bld) 87.1 % High 47-70 [facility] Nitrite Test strip Ql (U)Ord ered By: Ford Patricia on 10-19-2024 Nitrite Ql (U) Negative Negative [facility] No Panel InformationOrdered By: Ford Patricia on 10-19-2024 ARMANI [facility] Not entered [facility] Cannula [facility] 95 U/L High <38 [facility] Partial Thromboplast Timeon 10-19-2024 aPTT Coag (Bld) [Time] 25.3 s Normal 24.1-36.2 [facility] Comment on above: Performed By: #### L 100.0100, L500.4050, L300.3900, L300.4310, L503.6005, M200.1000 ####[facility] [id number] [place], [place], [id number] Platelet countOrdered By: Woody Patricia on 10-19-2024 Platelets (Bld) [#/Vol] 269 10*3/uL 150-450 [facility] Potassium measurement (mass/ volume)Ordered By: Ford Patricia on 10-19-2024 Potassium (Unsp spec) [Mass/Vol] 4.8 mmol/L 3.3-5.1 [facility] Protein Test strip Ql (U)Ord ered By: Ford Patricia on 10-19-2024 Protein Ql (U) 100 mg/dl High Negative [facility] Prothrombin Time w/INRon INR Coag (PPP) [Relative time] 1.0 {INR} Normal [facility] Comment on above: Performed By: #### L 100.0100, L500.4050, L300.3900, L300.4310, L503.6005, M200.1000 ####[facility] [address] [place], [address] PT Coag (PPP) [Time] 13.5 s Normal 11.7-14.9 [facility] Comment on above: Performed By: #### L 100.0100, L500.4050, L300.3900, L300.4310, L503.6005, M200.1000 ####[facility] [address] [place], [address] Prothrombin timeOrdered By: Ford Patricia on 10-19-2024 PT Coag (PPP) [Time] 13.5 s 11.7-14.9 [facility] RBC Auto (Bld) [#/Vol]Ordere d By: Ford Patricia on 10-19-2024 RBC (Bld) [#/Vol] 3.52 10*6/uL Low 4.6-6.2 [place] Serum creatinine measurement (mass/volume)Ordered By: Ford Patricia on 10-19-2024 Creatinine [Mass/Vol] 9.78 mg/dL High 0.70-1.20 [facility] Serum globulin measurementOr dered By: Ford Patricia on 10-19-2024 Globulin (S) [Mass/Vol] 2.5 g/dL 2.2-4.2 [facility] Serum glucose measurement (m ass/volume)Ordered By: Ford Patricia on 10-19-2024 Glucose [Mass/Vol] 118 mg/dL High 70-99 [facility] Serum or plasma alanine doshi otransferase (ALT) measurementOrdered By: Ford Patricia on 10-19-2024 ALT [Catalytic activity/Vol] 23 U/L <47 [facility] Serum or plasma albumin jessie urement (mass/volume)Ordered By: Ford Patricia on 10-19-2024 Albumin [Mass/Vol] 4.4 g/dL 3.5-5.0 [facility] Serum or plasma albumin/glob ulin mass ratioOrdered By: Ford Patricia on 10-19-2024 Albumin/Globulin [Mass ratio] 1.8 {ratio} 0.9-2.4 [facility] Serum or plasma alkaline kalie sphatase measurementOrdered By: Ford Patricia on 10-19-2024 ALP [Catalytic activity/Vol] 78 U/L 40-129 [facility] Serum or plasma calcium jessie urement (mass/volume)Ordered By: Ford Patricia on 10-19-2024 Calcium [Mass/Vol] 10.1 mg/dL 7.6-11.0 [facility] Serum or plasma urea nitroge n measurement (mass/volume)Ordered By: Ford Patricia on 10-19-2024 Urea nitrogen [Mass/Vol] 104 mg/dL High 4-19 [facility] Sodium levelOrdered By: Zoe Patricia on 10-19-2024 Sodium [Moles/Vol] 135 mmol/L 133-145 [facility] Squamous epithelial cells de tection in urine sediment by light microscopyOrdered By: Ford Patricia on 10-19-2024 Epithelial cells.squamous LM Ql (Urine sed) 0-5 SEEN /hpf 0-5 [facility] Total proteinOrdered By: Caty Patricia on 10-19-2024 Protein [Mass/Vol] 6.9 g/dL 5.9-8.4 [facility] Transitional cells detection in urine sediment by light microscopyOrdered By: Ford Patricia on 10-19-2024 Transitional cells LM Ql (Urine sed) 0-5 SEEN /hpf 0-5 [facility] Urinalysis, Completeon 10-19 BACTERIA 1+ /hpf Normal None Seen [facility] Comment on above: Order Comment: CLEAN CATCH Performed By: #### M 100.2200, L400.0001 ####[facility] [address] [place], [address] EPI,SQUAMOUS 0-5 SEEN Normal 0-5 [facility] Comment on above: Order Comment: CLEAN CATCH Performed By: #### M 100.2200, L400.0001 ####[facility] [address] [place], [address] EPI,TRANSITION 0-5 SEEN Normal 0-5 [facility] Comment on above: Order Comment: CLEAN CATCH Performed By: #### M 100.2200, L400.0001 ####[facility] [address] [place], [address] RBC 0-5 SEEN Normal 0-5 [facility] Comment on above: Order Comment: CLEAN CATCH Performed By: #### M 100.2200, L400.0001 ####[facility] [address] [place], [address] WBC 0-5 SEEN Normal 0-5 [facility] Comment on above: Order Comment: CLEAN CATCH Performed By: #### M 100.2200, L400.0001 ####[facility] [address] [place], [address] Mucus Ql (Urine sed) [address] [facility] Comment on above: Order Comment: CLEAN CATCH Performed By: #### M 100.2200, L400.0001 ####[facility] [address] [place], [address] Urine clarityOrdered By: Caty Patricia on 10-19-2024 Clarity (U) Clear Clear [facility] Urine color determinationOrd ered By: Ford Patricia on 10-19-2024 Color (U) Straw Yellow [facility] Urine cultureOrdered By: Caty Patricia on 10-19-2024 Bacteria identified Cx Nom (U) GPC Poss Enterococcus sp Abnormal [facility] Bacteria identified Cx Nom (U) Positive Abnormal [facility] Urine glucose detectionOrder ed By: Ford Patricia on 10-19-2024 Glucose Ql (U) 100 mg/dl High Normal [facility] Urine leukocyte esterase det ection by dipstickOrdered By: Ford Patricia on 10-19-2024 Leukocyte esterase Test strip Ql (U) Negative Negative [facility] Urine pHOrdered By: Ford vela on 10-19-2024 pH (U) 6.0 [pH] 5.0 - 8.0 [facility] Urine sediment bacteria coun t by microscopy (number/high power field)Ordered By: Ford Patricia on 10-19-2024 Bacteria LM.HPF (Urine sed) [#/Area] 1 /[HPF] None Seen [facility] Urine specific gravity measu rementOrdered By: Ford Patricia on 10-19-2024 Specific gravity (U) [Rel density] 1.015 1.002-1.030 [facility] Urine urobilinogen measureme ntOrdered By: Ford Patricia on 10-19-2024 Urobilinogen Ql (U) Normal mg/dl Normal [facility] Venous Blood Gason 5 Blood Gas Type ARMANI Normal [facility] Comment on above: Performed By: #### L 9000.0810 ####[facility] [address] [place], [address] CO2 [Moles/Vol] 25 mmol/L Normal 23-33 [facility] Comment on above: Performed By: #### L 9000.0810 ####[facility] [address] [place], [address] FI02 2.0 Normal [facility] Comment on above: Performed By: #### L 9000.0810 ####[facility] [address] [place], [address] HCO3 (Bld) [Moles/Vol] 24 mmol/L Normal 22-26 [facility] Comment on above: Performed By: #### L 9000.0810 ####[facility] [address] [place], [address] O2 Delivery Dev Cannula Normal [facility] Comment on above: Performed By: #### L 9000.0810 ####[facility] [address] [place], [address] SITE Not entered Normal [facility] Comment on above: Performed By: #### L 9000.0810 ####[facility] [address] [place], [address] VBG BE -1 mmol/L Normal -1.0-3.5 [facility] Comment on above: Performed By: #### L 9000.0810 ####[facility] [address] [place], [address] VBG pCO2 37.4 mmHg Low 41-51 [facility] Comment on above: Performed By: #### L 9000.0810 ####[facility] [address] [place], [place], [address] VBG pH 7.41 Normal 7.32-7.42 [facility] Comment on above: Performed By: #### L 9000.0810 ####[facility] [address] [place], [place], [address] VBG PO2 23 mmHg Low 25-40 [facility] Comment on above: Performed By: #### L 9000.0810 ####[facility] [address] [place], [place], [address] VBG SO2 41 Low 50-70 [facility] Comment on above: Performed By: #### L 9000.0810 ####[facility] [address] [place], [place], [address] Venous blood base excess luisa surementOrdered By: Ford Patricia on 10-19-2024 Base excess Calc (BldV) [Moles/Vol] -1 mmol/L -1.0-3.5 [facility] Venous blood bicarbonate luisa surementOrdered By: Ford Patricia on 10-19-2024 HCO3 (Bld) [Moles/Vol] 24 mmol/L 22-26 [facility] Venous blood pH measurementO rdered By: Ford Patricia on 10-19-2024 pH (BldV) 7.41 [pH] 7.32-7.42 [facility] Venous blood partial pressur e of carbon dioxide measurementOrdered By: Ford Patricia on 10-19-2024 CO2 (BldV) [Partial pressure] 37.4 mm[Hg] Low 41-51 [facility] Venous blood partial pressur e of oxygen measurementOrdered By: Ford Patricia on 10-19-2024 Oxygen (BldV) [Partial pressure] 23 mm[Hg] Low 25-40 [facility] White blood cell (WBC) count Ordered By: Ford Patricia on 10-19-2024 WBC (Bld) [#/Vol] 19.1 10*3/uL High 4.4-11.0 [place] White blood cell countOrdere d By: Ford Patricia on 10-19-2024 White blood cell count 0-5 SEEN /hpf 0-5 [facility] CNPNon 10-06-2024 CNPN Telephone (TXCTGL) LAURIE GONZALES ([id number]) 1980 M Date Time Provider Department 10/06/24 KIDNEY TXP COORDINATORS TXCTGL During your visit [...] AFFECTED AREA FIVE TIMES DAILY - Insulin [place], Disposable, (BD ULTRA-FINE CAROL PEN NEEDLE) 32 gauge x 5/32 ndle Use one needle for each dose. 7/day. - Zn Acetate-[place]- [place] (AMERIGEL) gel Apply 1 application to affected [...] Status:Closed by SINDY ALONZO on 10/06/24 [facility] 09-[facility]-2024 Hemoglobin (Bld) [Mass/Vol] 10.4 g/dL Low 13.0-16. 5 [facility] Comment on above: Performed By: #### L 100.1300 ####[facility] [address] [place], [place], [id number] Hemoglobin measurementOrdere d By: Daisy Diaz on 09-29-2024 Hemoglobin (Bld) [Mass/Vol] 10.4 g/dL Low 13.0-16. 5 [facility] KID K/P PANC REC HLA AB SCRN on 09-28-2024 Results to Follow See Allogen report to follow [facility] DRUG SCREEN 9 PANEL, SERUM O R PLASMAon 09-24-2024 Amphetamines Screen Ql Negative [facility] Comment on above: Presumptively Negative by immunoassay. Testing by mass spectrometry is available on request. Interpretive Information: Amphetamines Screen, S/P Methodology: Immunoassay Positive Cutoff: 20 ng/mL Annotation comment [Interpretation] Narrative See Note [facility] Comment on above: Interpretive Informa tion: Drug Screen with Reflex to Quant S/P [...] developed and its performance characteristics determined by [facility]. It has not been cleared or approved by the [place] Food and Drug Administration. This test was performed in a CLIA certified laboratory and is intended for clinical purposes. Performed By: [facility] [address] [place] [address] Spray Dry Operator: Anirudh Coats MD, PhD CLIA Number: [id number] Barbiturates Screen Ql Negative [facility] Comment on above: Presumptively Negative by immunoassay. Testing by mass spectrometry is available on request. Interpretive Information: Barbiturates Screen, S/P Methodology: Immunoassay Positive Cutoff: 50 ng/mL Benzodiazepines Screen Ql Negative [facility] Comment on above: Presumptively Negative by immunoassay. Testing by mass spectrometry is available on request. Interpretive Information: Benzodiazepines Screen, S/P Methodology: Immunoassay Positive Cutoff: 50 ng/mL Buprenorphine [Mass/Vol] Negative [facility] Comment on above: Presumptively Negative by immunoassay. Testing by mass spectrometry is available on request. Interpretive Information: Buprenorphine Screen, S/P Methodology: Immunoassay Positive Cutoff: 1 ng/mL Cannabinoids Screen Ql Negative [facility] Comment on above: Presumptively Negative by immunoassay. Testing by mass spectrometry is available on request. Interpretive Information: Carboxy-THC Screen, S/P Methodology: Immunoassay Positive Cutoff: 20 ng/mL This test does not distinguish between the delta-8 and delta-9 forms of Carboxy-THC or their metabolites. Cocaine Screen Ql Negative [facility] Comment on above: Presumptively Negative by immunoassay. Testing by mass spectrometry is available on request. Interpretive Information: Cocaine Screen, S/P Methodology: Immunoassay Positive Cutoff: 20 ng/mL Methadone Screen Ql Negative [facility] Comment on above: Presumptively Negative by immunoassay. Testing by mass spectrometry is available on request. Interpretive Information: Methadone Screen, S/P Methodology: Immunoassay Positive Cutoff: 25 ng/mL Methamphetamine Ql Negative [facility] Comment on above: Presumptively Negative by immunoassay. Testing by mass spectrometry is available on request. Interpretive Information: Methamphetamine Screen, S/P Methodology: Immunoassay Positive Cutoff: 20 ng/mL Opiates Screen Ql Negative [facility] Comment on above: Presumptively Negative by immunoassay. Testing by mass spectrometry is available on request. Interpretive Information: Opiates Screen, S/P Methodology: Immunoassay Positive Cutoff: 20 ng/mL oxyCODONE Ql Negative [facility] Comment on above: Presumptively Negative by immunoassay. Testing by mass spectrometry is available on request. Interpretive Information: Oxycodone/Oxymorphone Screen, S/P Methodology: Immunoassay Positive Cutoff: 20 ng/mL Phencyclidine Screen Ql Negative [facility] Comment on above: Presumptively Negative by immunoassay. Testing by mass spectrometry is available on request. Interpretive Information: Phencyclidine Screen, S/P Methodology: Immunoassay Positive Cutoff: 10 ng/mL [facility] STRONGYLOIDES IGG BLOrdered By: Mara Ricks on 09-23-2024 Interpretation and review of laboratory results Normal [facility] Strongyloides IgG Qual. Negative Negative [facility] This test detects IgG produced against two recombinant and specific Strongyloides stercoralis antigens. It cannot determine the time of infection, however, it can be negative during the first few weeks after an acute infection. IgG levels may remain elevated for life but may also decline with adequate treatment. Equivocal results may be seen during early infection, years after spontaneous clearance, post treatment, in immunosuppressed patients, or due to cross-reactivity with certain nematodes, Filariae among others. Clinical and epidemiological correlation is required. [facility] BLOOD TB SCREENon 09-22-2024 M. tuberculosis tuberculin stim IFN-g Ql (Bld) Negative [facility] Mitogen minus Nil - PINF [facility] TB Gamma Interpretation Infection with M . tuberculosis complex is unlikely. If latent tuberculosis infection is highly suspected, a negative result does not rule out the infection. Specimens from immunocompromised patients and those <5 years of age may show false negative results. In case of a contact investigation, please repeat 8-12 weeks after a known exposure. [facility] TB Nil 0.01 NINF [facility] TB1 Ag minus Nil 0.01 [facility] TB2 Ag minus Nil 0 [facility] HEPATITIS A ANTIBODY, IGGon 09-22-2024 HAV IgG Ql (S) Negative [facility] Comment on above: No serological evide nce of past exposure to hepatitis A virus or hepatitis A vaccination. Should recent infection be suspected, repeat testing is suggested 3-4 weeks after this draw. [facility] HIV 1+2 Ab IA Qlon HIV 1 and 2 Ab IA.rapid Nom (S/P/Bld) [facility] Comment on above: Test not indicated. HIV 1+2 Ab+HIV1 p24 Ag IA Ql Non-Reactive Nonreactive [facility] HIV immunoassay testing algorithm interpretation (S/P/Bld) [Interp] [facility] Comment on above: No evidence of HIV-1 or HIV-2 infection. Should recent infection be suspected, repeat testing may be considered 2-3 weeks after this draw. [place] Rev. Code 3701.243(E): This information has been [...] release of HIV test results or diagnoses. [facility] Reagin and Treponema pallidu m IgG and IgM [Interp]on 09-22-2024 T. pallidum IgG+IgM IA Ql (S) Non-Reactive Nonreactive [facility] SYPHILIS TREPONEMAL W/REFLEX on 09-22-2024 Reagin and Treponema pallidum IgG and IgM [Interp] Cannot exclude recent Treponemal infection if specimen collected within 7-10 days after appearance of suspect lesions or 2-3 weeks after an exposure. Clinical correlation is required. [facility] BLOOD TB SCREENon 09-21-2024 M. tuberculosis tuberculin stim IFN-g Ql (Bld) Negative Normal [facility] Comment on above: Order Comment: Speci men Type: BLOOD SPECIMENOrdering Facility: [facility] Address: [address] [place] [address] Performed By: #### I NFTBP ####[facility] LABIA [id number] [place] [address] [place] MITOGEN MINUS NIL >9.99 Normal >=0.50 [facility] Comment on above: Order Comment: Speci men Type: BLOOD SPECIMENOrdering Facility: [facility] Address: [address] [place] [address] Performed By: #### I NFTBP ####[id number] [address] TB GAMMA INTERPRETATION Infection with M . tuberculosis complex is unlikely. If latent tuberculosis infection is highly suspected, a negative result does not rule out the infection. Specimens from immunocompromised patients and those <5 years of age may show false negative results. In case of a contact investigation, please repeat 8-12 weeks after a known exposure. Normal [facility] Comment on above: Order Comment: Speci men Type: BLOOD SPECIMENOrdering Facility: [facility] Address: [address] [place] [address] Performed By: #### I NFTBP ####[facility] LABIA [id number] [address] TB NIL 0.01 IU/mL Normal <=8.00 [facility] Comment on above: Order Comment: Speci [facility] Type: BLOOD SPECIMENOrdering Facility: [facility] Address: [address] [place] [address] Performed By: #### I NFTBP ####[facility] LABIA [id number] [place] [address] [place] TB1 AG MINUS NIL 0.01 IU/mL Normal <0.35 [facility] Comment on above: Order Comment: Speci men Type: BLOOD SPECIMENOrdering Facility: [facility] Address: [address] [place] [address] Performed By: #### I NFTBP ####[facility] LABCLIA [id number] [place] [address] [place] TB2 AG MINUS NIL 0.00 IU/mL Normal <0.35 [facility] Comment on above: Order Comment: Speci men Type: BLOOD SPECIMENOrdering Facility: [facility] Address: [address] [place] [address] Performed By: #### I NFTBP ####[facility] LABCLIA [id number] [place] [address] [place] CMV IGG ANTIBODY BLon 2024 CMV IgG Qn U/mL U/mL [facility] Comment on above: The magnitude of the measured result is not indicative of the amount of antibody present. U/mL values are interpreted as follows: Negative <0.6 Equivocal 0.6 to <0.70 Positive >=0.70 CMV IgG Qnon 09-21-2024 CMV IgG Qualitative Negative Negative [facility] Comment on above: No serological evide nce of past exposure to Cytomegalovirus. Cannot exclude recent infection if the specimen collected within 4-6 weeks after infection. [facility] CMV IGG QUAL Negative Normal Negative [facility] Comment on above: Order Comment: Speci men Type: BLOOD SPECIMENOrdering Facility: [facility] Address: [address] [place] [address] Result Comment: No s erological evidence of past exposure to Cytomegalovirus. Cannot exclude recent infection if the specimen collected within 4-6 weeks after infection. Performed By: #### 7 962-4, 7852-7, VZVG2 ####[facility] LABCLIA [id number] [place] [address] [place] CMV IgG SerPl-aCncon 025 CMV IgG Qn <0.20 Normal [facility] Comment on above: Order Comment: Speci men Type: BLOOD SPECIMENOrdering Facility: [facility] Address: [address] [place] [address] Result Comment: The magnitude of the measured result is not indicative of the amount of antibody present. U/mL values are interpreted as follows: Negative <0.6 Equivocal 0.6 to <0.70 Positive >=0.70 Performed By: #### 7 962-4, 7852-7, VZVG2 ####[facility] LABCLIA [id number] [address] CNOVon 09-21-2024 CNOV Office Visit (INTMWS) LAURIE GONZALES ([id number]) 1980 M Date Time Provider Department 09/21/24 11:40 AM KRISTAL SULLIVAN INTNelsonWS During your visit today, we recorded the following information about you: Pulse Respiration Blood pressure Weight 82/minute 16/minute 135/80 89.4 kg Kristal Sullivan MD 09/21/2024 12:20 PM Addendum We discussed your recent health concerns and ongoing care: - Dialysis and Fistula Use: - You are currently undergoing dialysis at [facility] on Friday, Friday, and Friday. - Your [...] You recently underwent an endoscopy with your prepress operator, Dr. Andres Angulo. A stricture in your [...] ordered by the transplant team at the [facility]. You can complete this testing locally at [...] - Your next phone appointment with the [facility] transplant team is scheduled for September 04. You will also have an in-person appointment at the [facility] on September 21. - Complete the ordered blood work at our facility before your transplant appointments. - Continue attending dialysis sessions as scheduled and notify your manager green, Dr. Mckeon, or his nurse if you [...] a 44-year-old male with a history of [place], CKD on dialysis, and dysphagia, presenting for follow-up after a recent hospitalization for a port infection. Laurie was hospitalized on the for a port infection related to his dialysis. He initially presented to the ED with emesis and a fever of 103 degreeF, and was subsequently transferred to [place], where he was admitted for a week. The infection necessitated the removal of his port. He is currently on IV antibiotics, with his last dose scheduled for this Friday. During his hospitalization, he was evaluated by a prepress operator due to dysphagia. An endoscopy revealed a stricture, which was dilated, and biopsies were taken from erythematous areas, all of which returned negative results. Laurie has a functioning AV fistula in his left forearm, which has been in place since January 04 of last year. He is currently undergoing dialysis at [facility] on Mondays, Wednesdays, and Fridays. He reports being contacted by the [facility] as a backup for a pancreas transplant and is hopeful to return to work soon. Laurie was previously employed part-time at [employer] but was let go due to multiple surgeries and his current medical condition. He has since been approved for Social Security but had to wait five months without income before receiving benefits. He is not eligible for unemployment due to his part-time status. He is under the care of manager green Dr. Mckeon, whom he has seen twice. Most of his interactions are with Dr. Mckeon's nurse at [facility], whom he describes as super nice. Laurie has a phone appointment with the transplant center at the [facility] on September 04 and an in-person appointment on the . He is also using an insulin pump for diabetes management. Social History Tobacco Use Smoking status: Never Smokeless tobacco: Never Substance Use Topics Alcohol use: No Drug use: No Past medical history, appointments, medications, allergies reviewed. Pertine (more content not included)... Normal [facility] DRUG SCREEN 9 PANEL, SERUM O R PLASMAon 09-21-2024 AMPHETAMINES, S/P, SCREEN Negative Normal [facility] Comment on above: Order Comment: Speci men Type: BLOOD SPECIMENOrdering Facility: [facility] Address: [address] [place] [address] Result Comment: Pres umptively Negative by immunoassay. Testing by mass spectrometry is available on request. Interpretive Information: Amphetamines Screen, S/P Methodology: Immunoassay Positive Cutoff: 20 ng/mL Performed By: #### D [id number] ####[facility] [id number] [place] [address] BARBITURATES, S/P, SCREEN Negative Normal [facility] Comment on above: Order Comment: Speci men Type: BLOOD SPECIMENOrdering Facility: [facility] Address: [address] [place] [address] Result Comment: Pres umptively Negative by immunoassay. Testing by mass spectrometry is available on request. Interpretive Information: Barbiturates Screen, S/P Methodology: Immunoassay Positive Cutoff: 50 ng/mL Performed By: #### D [id number] ####[facility] [id number] [place] [address] BENZODIAZEPINES, S/P, SCREEN Negative Normal [facility] Comment on above: Order Comment: Speci men Type: BLOOD SPECIMENOrdering Facility: [facility] Address: [address] [place] [address] Result Comment: Pres umptively Negative by immunoassay. Testing by mass spectrometry is available on request. Interpretive Information: Benzodiazepines Screen, S/P Methodology: Immunoassay Positive Cutoff: 50 ng/mL Performed By: #### D [id number] ####[facility]IES[facility]IA [id number] [place] [address] BUPRENORPHINE, S/P, SCREEN Negative Normal [facility] Comment on above: Order Comment: Speci men Type: BLOOD SPECIMENOrdering Facility: [facility] Address: [address] [place] [address] Result Comment: Pres umptively Negative by immunoassay. Testing by mass spectrometry is available on request. Interpretive Information: Buprenorphine Screen, S/P Methodology: Immunoassay Positive Cutoff: 1 ng/mL Performed By: #### D [id number] ####[facility]IESCLIA [id number] [place] [address] CANNABINOIDS, S/P, SCREEN Negative Normal [facility] Comment on above: Order Comment: Speci men Type: BLOOD SPECIMENOrdering Facility: [facility] Address: [address] [place] [address] Result Comment: Pres umptively Negative by immunoassay. Testing by mass spectrometry is available on request. Interpretive Information: Carboxy-THC Screen, S/P Methodology: Immunoassay Positive Cutoff: 20 ng/mL This test does not distinguish between the delta-8 and delta-9 forms of Carboxy-THC or their metabolites. Performed By: #### D [id number] ####[facility]IESCLIA [id number] [place] [address] COCAINE, S/P, SCREEN Negative Normal [facility] Comment on above: Order Comment: Speci men Type: BLOOD SPECIMENOrdering Facility: [facility] Address: [address] [place] [address] Result Comment: Pres umptively Negative by immunoassay. Testing by mass spectrometry is available on request. Interpretive Information: Cocaine Screen, S/P Methodology: Immunoassay Positive Cutoff: 20 ng/mL Performed By: #### D [id number] ####[facility]PITALIA [id number] [place] [address] DRUG SCREEN COMMENTS, SERUM OR PLASMA See Note Normal [facility] Comment on above: Order Comment: Speci men Type: BLOOD SPECIMENOrdering Facility: [facility] Address: [address] [place] [address] Result Comment: Inte rpretive Information: Drug Screen [...] developed and its performance characteristics determined by [employer]. It has not been cleared or approved by the US Food and Drug Administration. This test was performed in a CLIA certified laboratory and is intended for clinical purposes. Performed By: [facility] [place] [address] Spray Dry Operator: Anirudh Coats MD, PhD CLIA Number: [id number] Performed By: #### D [id number] ####[facility] [id number] [place] [address] METHADONE, S/P, SCREEN Negative Normal [facility] Comment on above: Order Comment: Speci men Type: BLOOD SPECIMENOrdering Facility: [facility] Address: [address] [place] [address] Result Comment: Pres umptively Negative by immunoassay. Testing by mass spectrometry is available on request. Interpretive Information: Methadone Screen, S/P Methodology: Immunoassay Positive Cutoff: 25 ng/mL Performed By: #### D [id number] ####[facility]IA [id number] [place] [address] METHAMPHETAMINE, S/P, SCREEN Negative Normal [facility] Comment on above: Order Comment: Speci men Type: BLOOD SPECIMENOrdering Facility: [facility] Address: [address] [place] [address] Result Comment: Pres umptively Negative by immunoassay. Testing by mass spectrometry is available on request. Interpretive Information: Methamphetamine Screen, S/P Methodology: Immunoassay Positive Cutoff: 20 ng/mL Performed By: #### D [id number] ####[facility]IESCLIA [id number] [place] [address] OPIATES, S/P, SCREEN Negative Normal [facility] Comment on above: Order Comment: Speci men Type: BLOOD SPECIMENOrdering Facility: [facility] Address: [address] [place] [address] Result Comment: Pres umptively Negative by immunoassay. Testing by mass spectrometry is available on request. Interpretive Information: Opiates Screen, S/P Methodology: Immunoassay Positive Cutoff: 20 ng/mL Performed By: #### D [id number] ####[facility]IESCLIA [id number] [place] [address] OXYCODONE, S/P, SCREEN Negative Normal [facility] Comment on above: Order Comment: Speci men Type: BLOOD SPECIMENOrdering Facility: [facility] Address: [address] [place] [address] Result Comment: Pres umptively Negative by immunoassay. Testing by mass spectrometry is available on request. Interpretive Information: Oxycodone/Oxymorphone Screen, S/P Methodology: Immunoassay Positive Cutoff: 20 ng/mL Performed By: #### D [id number] ####[facility]IESCLIA [id number] [place] [address] PHENCYCLIDINE, S/P, SCREEN Negative Normal [facility] Comment on above: Order Comment: Speci men Type: BLOOD SPECIMENOrdering Facility: [facility] Address: [address] [place] [address] Result Comment: Pres umptively Negative by immunoassay. Testing by mass spectrometry is available on request. Interpretive Information: Phencyclidine Screen, S/P Methodology: Immunoassay Positive Cutoff: 10 ng/mL Performed By: #### D [id number] ####[facility] [id number] [place] [address] EBV capsid IgG Qn (S)on 08-30 EBV VCA IgG, Qual Positive Abnormal Negative [facility] Comment on above: The result suggests recent or past EBV infection. The final interpretation should be done in the context of other EBV serology panel results. Interpretation and review of laboratory results Abnormal [facility] EBV VCA IGG, QUAL Positive Abnormal Negative [facility] Comment on above: Order Comment: Speci men Type: BLOOD SPECIMENOrdering Facility: [facility] Address: [address] [place] [address] Result Comment: The result suggests recent or past EBV infection. The final interpretation should be done in the context of other EBV serology panel results. Performed By: #### 7 885-7, 8039-0 ####[facility] LABCLIA [id number] [place] [address] [place] HBV core Ab Ser Qlon 025 HBV core Ab Ql (S) Negative Normal Negative [facility] Comment on above: Order Comment: Carrolli shaina Type: BLOOD SPECIMENOrdering Facility: [facility] Address: [address] [place] [address] Result Comment: No e vidence of current or past infection with Hepatitis B virus. Should recent infection be suspected, repeat testing may be considered 3-4 weeks after this draw. Performed By: #### 5 195-3, 00823-4, 41489-8, 77863-2 ####[facility] LABCLIA [id number] [place] [address] [place] HBV surface Ab Ql (S)on 08-30 HBV surface Ab Qn (S) 99.55 mIU/mL Normal C [facility] Comment on above: Order Comment: Speci men Type: BLOOD SPECIMENOrdering Facility: [facility] Address: [address] [place] [address] Result Comment: <8 m IU/mL: No serological evidence of immunity to Hepatitis B Virus. >/= 8 to <12 mIU/mL: No serological evidence of immunity to Hepatitis B Virus. >/= 12 mIU/mL: Consistent with serological evidence of immunity to Hepatitis B Virus. Performed By: #### 5 195-3, 55642-0, 31036-9, 67391-8 ####[facility] LABCLIA [id number] [place] [address] [place] HBV surface Ab Ser Qlon 08-30 HBV surface Ab Ql (S) Positive Normal [facility] Comment on above: Order Comment: Speci men Type: BLOOD SPECIMENOrdering Facility: [facility] Address: [address] [place] [address] Result Comment: Cons istent with serological evidence of immunity to Hepatitis B Virus. Performed By: #### 5 195-3, 08406-0, 96871-2, 76254-8 ####[facility] LABIA [id number] [address] [place] HBV surface Ag Ser Qlon 08-30 HBV surface Ag Ql (S) Negative Normal Negative [facility] Comment on above: Order Comment: Carrolli shaina Type: BLOOD SPECIMENOrdering Facility: [facility] Address: [address] [place] [address] Performed By: #### 5 195-3, 67699-6, 05989-5, 17840-8 ####[facility] LABIA [id number] [place] [address] [place] HCV Ab Ser Qlon 09-21-2024 HCV Ab Ql (S) Negative Normal Negative [facility] Comment on above: Order Comment: Carrolli men Type: BLOOD SPECIMENOrdering Facility: [facility] Address: [address] [place] [address] Result Comment: The result suggests no evidence of infection with Hepatitis C virus. Should recent infection be suspected, repeat testing may be considered 4-6 weeks after this draw. Performed By: #### 1 6128-1 ####[facility] LABCLIA [id number] [place] [address] [place] HEMOGLOBIN A1C (POC)on 09-21 HbA1c (Bld) [Mass fraction] 7.4 % Abnormal 4.3 - 5. 6 % [facility] Comment on above: Location:[address], [facility] Point of care (POC) Hemoglobin A1c (HGBA1C) [...] specific diabetes management situations: The POC device agency recruiter provides a normal range of 4.2% to 6.5% for the HGBA1C POC test. However, the [place] [employer] guidelines indicate that patients with [...] Interpretation and review of laboratory results Abnormal [facility] HEPATITIS A ANTIBODY, IGGon 09-21-2024 HAV IgG Ql (S) Negative Normal [facility] Comment on above: Order Comment: Speci men Type: BLOOD SPECIMENOrdering Facility: [facility] Address: [address] [place] [address] Result Comment: No s erological evidence of past exposure to hepatitis A virus or hepatitis A vaccination. Should recent infection be suspected, repeat testing is suggested 3-4 weeks after this draw. Performed By: #### A HAVG, 55536-9 ####[facility] LABCLIA [id number] [id number], [place] [address] [place] HIV 1+2 Ab IA Qlon 5 HIV 1 and 2 Ab IA.rapid Nom (S/P/Bld) Normal [facility] Comment on above: Order Comment: Speci men Type: BLOOD SPECIMENOrdering Facility: [facility] Address: [address] [place] [address] Result Comment: Test not indicated. Performed By: #### 5 195-3, 13737-5, 47258-9, 00199-1 ####[facility] LABCLIA [id number] [address] HIV 1+2 Ab+HIV1 p24 Ag IA Ql Non-Reactive Normal Nonreactive [facility] Comment on above: Order Comment: Speci men Type: BLOOD SPECIMENOrdering Facility: [facility] Address: [address] [place] [address] Performed By: #### 5 195-3, 19286-0, 42431-2, 02635-3 ####[facility] LABCLIA [id number] [address] HIV immunoassay testing algorithm interpretation (S/P/Bld) [Interp] Normal [facility] Comment on above: Order Comment: Speci men Type: BLOOD SPECIMENOrdering Facility: [facility] Address: [address] [place] [address] Result Comment: No e vidence of HIV-1 or HIV-2 infection. Should recent infection be suspected, repeat testing may be considered 2-3 weeks after this draw. [place] Rev. Code 3701.243(E): This information has been [...] test results or diagnoses. Performed By: #### 5 195-3, 59981-3, 07280-3, 09501-2 ####[facility] LABCLIA [id number] [place] [address] [place] HbA1c (Bld)on 09-21-2024 Average glucose Estimated from glycated hemoglobin (Bld) [Mass/Vol] 160 mg/dL Normal [facility] Comment on above: Order Comment: Bam merritt Type: BLOOD SPECIMENOrdering Facility: [facility] Address: [address] [place] [address] Result Comment: eAG: (Estimated average glucose) is a calculated value from HgbA1c and is regional sales representative of the average blood glucose level in the last 2-3 month period. Performed By: #### 5 5454-3 ####[facility] LABCLIA [id number] [address] [place] [facility] HbA1c (Bld) [Mass fraction] 7.2 % High 4.3-5.6 [facility] Comment on above: Order Comment: Bam merritt Type: BLOOD SPECIMENOrdering Facility: [facility] Address: [address] [place] [address] Result Comment: [place] Diabetes Association guidelines indicate that patients with HgbA1c in the range 5.7-6.4% are at increased risk for development of diabetes, and intervention by lifestyle modification may be beneficial. HgbA1c greater or equal to 6.5% is considered diagnostic of diabetes. Performed By: #### 5 5454-3 ####[facility] LABCLIA [id number] [place] [address] [place] KID K/P PANC REC HLA AB SCRN on 09-21-2024 ALLOGEN RESULTS TO FOLLOW See [employer]ogen re port to follow Normal [facility] Comment on above: Order Comment: Bam merritt Type: BLOOD SPECIMENOrdering Facility: [facility] Address: [address] [place] [address] Performed By: #### K PRHAS ####[facility]IESCLIA [id number] [place] [address] [place] MeV IgG Qn (S)on 09-21-2024 Interpretation and review of laboratory results Normal [facility] Measles Antibody, IGG Qualitative Positive Positive [facility] Comment on above: The result suggests recent or past exposure to Measles virus or Measles vaccination. The current test does not detect neutralizing antibodies. Positive result may also be seen due to presence of passively-transferred antibodies. Please correlate with patient's history. MEASLES IGG AB, QUAL Positive Normal Positive [facility] Comment on above: Order Comment: Speci men Type: BLOOD SPECIMENOrdering Facility: [facility] Address: [address] [place] [address] Result Comment: The result suggests recent or past exposure to Measles virus or Measles vaccination. The current test does not detect neutralizing antibodies. Positive result may also be seen due to presence of passively-transferred antibodies. Please correlate with patient's history. Performed By: #### 7 962-4, 7852-7, [id number] ####[facility] LABCLIA [id number] [place] [address] [place] No Panel Informationon 09-21 [facility] Reagin and Treponema pallidu m IgG and IgM [Interp]on 09-21-2024 T. pallidum IgG+IgM IA Ql (S) Non-Reactive Normal Nonreactive [facility] Comment on above: Order Comment: Bam merritt Type: BLOOD SPECIMENOrdering Facility: [facility] Address: [address] [place] [address] Performed By: #### A DANIELA, 40800-1 ####[facility] LABCLIA [id number] [place] [address] [place] Reagin+T pallidum IgG+IgM Se rPl-Impon 09-21-2024 Reagin and Treponema pallidum IgG and IgM [Interp] Cannot exclude recent Treponemal infection if specimen collected within 7-10 days after appearance of suspect lesions or 2-3 weeks after an exposure. Clinical correlation is required. Normal [facility] Comment on above: Order Comment: Bam merritt Type: BLOOD SPECIMENOrdering Facility: [facility] Address: [address] [place] [address] Performed By: #### A SOURAVG, 65198-8 ####[facility] LABCLIA [id number] [place] [address] [place] STRONGYLOIDES IGG BLon 09-21 STRONGYLOIDES IGG QUALITATIVE Negative Normal Negative [facility] Comment on above: Order Comment: Speci men Type: BLOOD SPECIMENOrdering Facility: [facility] Address: [address] [place] [address] Performed By: #### S TRSER ####[facility] LABCLIA [id number] [place] [address] [place] T. gondii IgG Qn (S)on 09-21 Interpretation and review of laboratory results Normal [facility] Toxo IgG Qual Negative Negative [facility] Comment on above: No serological evide nce of past exposure to Toxoplasma gondii. Cannot exclude recent infection if the specimen collected within 3-4 weeks after infection. [facility] TOXO IGG QUAL Negative Normal Negative [facility] Comment on above: Order Comment: Speci men Type: BLOOD SPECIMENOrdering Facility: [facility] Address: [address] [place] [address] Result Comment: No s erological evidence of past exposure to Toxoplasma gondii. Cannot exclude recent infection if the specimen collected within 3-4 weeks after infection. Performed By: #### 7 885-7, 8039-0 ####[facility] LABCLIA [id number] [place] [address] [place] TSH SerPl-aCncon 09-21-2024 TSH Qn 2.700 m[IU]/L Normal 0.270-4.200 [facility] Comment on above: Order Comment: Speci men Type: BLOOD SPECIMENOrdering Facility: [facility] Address: [address] [place] [address] Performed By: #### 3 016-3 ####[facility] LABCLIA [id number] [place] [address] [place] VARICELLA ZOSTER IGGon 09-21 Interpretation and review of laboratory results Normal [facility] Varicella Zoster IgG, Qual Positive Positive [facility] Comment on above: The result suggests recent or past exposure to Varicella-Zoster virus or chickenpox vaccination or zoster vaccination. Positive result may also be seen due to presence of passively-transferred antibodies. Please correlate with patient's history. [facility] VARICELLA ZOSTER IGG, QUAL Positive Normal Positive [facility] Comment on above: Order Comment: Speci men Type: BLOOD SPECIMENOrdering Facility: [facility] Address: [address] [place] [address] Result Comment: The result suggests recent or past exposure to Varicella-Zoster virus or chickenpox vaccination or zoster vaccination. Positive result may also be seen due to presence of passively-transferred antibodies. Please correlate with patient's history. Performed By: #### 7 962-4, 7852-7, [id number] ####[facility] LABCLIA [id number] [address] [facility] 36on 09-20-2024 36 Received a call from nurse Bowen at [facility] stating pt missed dose of Iv abx last Friday, stop date is supposed to be on 09/22 (Friday), she is wondering if they can administrate missed dose last Friday to this Sunday 09/24. Gave her okay to administrate missed dose. Normal [facility] Esophagus Dual Contraston Esophagus Dual Contrast Normal [facility] Gastroenterology Visit Repor ton 09-07-2024 Gastroenterology Visit Report Normal [facility] Bedside Glucoseon 08-31-2024 FINGERSTICK GLU 120 mg/dL High 74-106 [facility] Comment on above: Result Comment: EDUARDO JACOBO OF PATIENT CARE PER NURSING PROTOCOL Performed By: #### L 501.080 ####[facility] [address] [place], [address] Cardiology Visit Reporton Cardiology Visit Report Normal [facility] EGD Reporton 08-31-2024 EGD Report Normal [facility] deOrdered By: Bao Friend on 08-31-2024 Glucose [Mass/Vol] 120 mg/dL High 74-106 [facility] Comment on above: MANAGEMENT OF PATIEN T CARE PER NURSING PROTOCOL Immunohistochemical Stainson 08-31-2024 Immunohistochemical Stains Normal [facility] Comment on above: Performed By: #### P [facility] ####[facility] [address] [place], [address] MR/POSTOP.ANEon 08-31-2024 MR/POSTOP.ANE Normal [facility] MR/[id number] 08-31-2024 MR/POSTOPAN2 Normal [facility] 36on 08-30-2024 36 Received a call from nurse Dc at [facility] [phone] verifying pt's IV orders. Verified IV med, dose, frequency, EOT, weekly labs, no follow up appt in office. She was able to read back orders. They cannot do a CMP and only can do a CBC and BMP. Told her that thi is okay, otherwise, pt will need to go to outpt lab qweekly for lab work. She stated understanding. Fax number [phone]. Normal [facility] MR/PAT.ANEon 08-30-2024 MR/PAT.[facility] CBC W Auto Differential pane l (Bld)on 08-28-2024 Basophils (Bld) [#/Vol] 0 10*3/uL 0.0 - 0.2 10*3/uL [employer] Basophils/100 WBC (Bld) 0.5 % 0.0 - 2.0 % [facility] [employer] Eosinophils (Bld) [#/Vol] 0.2 10*3/uL 0. 0 - 0.5 10*3/uL [employer] Eosinophils/100 WBC (Bld) 3 % 0.0 - 6.0 % [employer] Erythrocyte distribution width (RBC) [Ratio] 12.6 % 11.5 - 15.0 % [employer] Hematocrit (Bld) [Volume fraction] 27.9 % Low 40.0 - 52.0 % [employer] Hemoglobin (Bld) [Mass/Vol] 9.3 g/dL Low 13.0 - 18.0 g/dL [employer] Immature granulocytes (Bld) [#/Vol] 0.2 10*3/uL High NINF - 0.1 10*3/uL [facility] Immature granulocytes/100 WBC (Bld) 3.8 % High 0.0 - 2.0 % [facility] Interpretation and review of laboratory results Abnormal [facility] Lymphocytes (Bld) [#/Vol] 1.4 10*3/uL 1. 0 - 4.3 10*3/uL [facility] Lymphocytes/100 WBC (Bld) 22 % 15 .0 - 45.0 % [facility] MCH (RBC) [Entitic mass] 30.2 pg 26. 0 - 34.0 pg [facility] MCHC (RBC) [Mass/Vol] 33.3 % 30.5 - 36.0 % [facility] MCV (RBC) [Entitic vol] 90.6 fL 77.0 - 99.0 fL [facility] Monocytes (Bld) [#/Vol] 0.7 10*3/uL 0.0 - 0.9 10*3/uL [facility] Monocytes/100 WBC (Bld) 11.5 % 5.0 - 13.0 % [facility] Neutrophils (Bld) [#/Vol] 3.8 10*3/uL 1. 8 - 7.5 10*3/uL [facility] Neutrophils/100 WBC (Bld) 59.2 % 38 .0 - 82.0 % [facility] Nucleated RBC/100 WBC (Bld) [Ratio] 0 % [facility] Platelet mean volume (Bld) [Entitic vol] 9.2 fL 9.0 - 12.7 fL [facility] Platelets (Bld) [#/Vol] 182 10*3/uL 140 - 440 10*3/uL [facility] RBC (Bld) [#/Vol] 3.08 10*6/uL Low 4.40 - 5.9 0 10*6/uL [facility] WBC (Bld) [#/Vol] 6.4 10*3/uL 3.6 - 10.7 10*3/uL [facility] CBC WITH AUTO DIFFERENTIALon 08-28-2024 Basophils (Bld) [#/Vol] 0.0 10*3/uL Normal 0.0-0.2 [facility] Comment on above: Performed By: #### L [id number] ####Study Manager: RORO LUNDBERG ([id number])[facility])[address] [place] [address] Basophils/100 WBC (Bld) 0.5 % Normal 0.0-2.0 S [facility] Comment on above: Performed By: #### L [id number] ####Study Manager: RORO LUNDBERG ([id number])[facility])[address] [place] [address] Eosinophils (Bld) [#/Vol] 0.2 10*3/uL Normal 0.0-0.5 [facility] Comment on above: Performed By: #### L [id number] ####Study Manager: RORO LUNDBERG ([id number])[facility])[address] [place] [address] Eosinophils/100 WBC (Bld) 3.0 % Normal 0.0-6.0 [facility] Comment on above: Performed By: #### L [id number] ####Study Manager: RORO LUNDBERG ([id number])[facility])[address] [place] [address] Erythrocyte distribution width (RBC) [Ratio] 12.6 % Normal 11.5-15.0 [facility] Comment on above: Performed By: #### L [id number] ####Study Manager: RORO LUNDBERG ([id number])[address] Hematocrit (Bld) [Volume fraction] 27.9 % Low 40.0-52.0 [facility] Comment on above: Performed By: #### L [id number] ####Study Manager: ROOR LUNDBERG ([id number])[address] Hemoglobin (Bld) [Mass/Vol] 9.3 g/dL Low 13.0-18. 0 [facility] Comment on above: Performed By: #### L [id number] ####Study Manager: RORO LUNDBERG ([phone])[facility])[address] [place] [address] IMMATURE GRANS % 3.8 % High 0.0-2.0 [facility] Comment on above: Performed By: #### L [id number] ####Study Manager: RORO LUNDBERG ([phone])[facility])[address] [place] [address] IMMATURE GRANS ABSOLUTE 0.2 10*3/uL High <0.1 [facility] Comment on above: Performed By: #### L [id number] ####Study Manager: RORO LUNDBERG ([phone])[facility])[address] [place] [address] Lymphocytes (Bld) [#/Vol] 1.4 10*3/uL Normal 1.0-4.3 [facility] Comment on above: Performed By: #### L [id number] ####Study Manager: RORO LUNDBERG ([phone])[address] Lymphocytes/100 WBC (Bld) 22.0 % Normal 15.0-45.0 [facility] Comment on above: Performed By: #### L [id number] ####Study Manager: RORO LUNDBERG ([id number])[address] MCH (RBC) [Entitic mass] 30.2 pg Normal 26.0-34.0 [facility] Comment on above: Performed By: #### L [id number] ####Study Manager: RORO LUNDBERG ([id number])[address] MCHC 33.3 % Normal 30.5-36.0 [facility] Comment on above: Performed By: #### L [id number] ####Study Manager: RORO LUNDBERG ([id number])[address] MCV (RBC) [Entitic vol] 90.6 fL Normal 77.0-99.0 [facility] Comment on above: Performed By: #### L [id number] ####Study Manager: RORO LUNDBERG ([id number])[facility] ([facility])[address] [place] [address] Monocytes (Bld) [#/Vol] 0.7 10*3/uL Normal 0.0-0.9 [facility] Comment on above: Performed By: #### L [id number] ####Study Manager: RORO LUNDBERG ([phone])[facility] ([facility])[address] [place] [address] Monocytes/100 WBC (Bld) 11.5 % Normal 5.0-13.0 [facility] Comment on above: Performed By: #### L [id number] ####Study Manager: RORO LUNDBERG ([id number])[facility] ([facility])[address] [place] [address] NEUTROPHILS ABSOLUTE 3.8 10*3/uL Normal 1.8-7.5 [facility] Comment on above: Performed By: #### L [id number] ####Study Manager: RORO LUNDBERG ([phone])[facility] ([facility])[address] [place] [address] Neutrophils/100 WBC (Bld) 59.2 % Normal 38.0-82.0 [facility] Comment on above: Performed By: #### L [id number] ####Study Manager: RORO LUNDBERG ([id number])[facility])[address] [place] [address] NRBC 0.0 /100 WBCs Normal 0.0-2.0 [facility] Comment on above: Performed By: #### L [id number] ####Study Manager: RORO LUNDBERG ([phone])[facility] ([facility])[address] [place] [address] Platelet mean volume (Bld) [Entitic vol] 9.2 fL Normal 9.0-12.7 [facility] Comment on above: Performed By: #### L [id number] ####Study Manager: RORO LUNDBERG ([phone])[facility] ([facility])[address] [place] [address] Platelets (Bld) [#/Vol] 182 10*3/uL Normal 140-440 [facility] Comment on above: Performed By: #### L [id number] ####Study Manager: RORO LUNDBERG ([id number])[facility] ([facility])[address] [place] [address] RBC (Bld) [#/Vol] 3.08 10*6/uL Low 4.40-5.90 [facility] Comment on above: Performed By: #### L [id number] ####Study Manager: RORO LUNDBERG ([phone])[facility] ([facility])[address] [place] [address] WBC (Bld) [#/Vol] 6.4 10*3/uL Normal 3.6-10.7 [facility] Comment on above: Performed By: #### L [id number] ####Study Manager: RORO LUNDBERG ([phone])[facility] ([facility])[address] [place] [address] COMPREHENSIVE METABOLIC PANE Jose 08-28-2024 Albumin [Mass/Vol] 2.8 g/dL Low 3.5-5.0 [facility] Comment on above: Performed By: #### L AB103, LAB17, [id number] ####Study Manager: RORO LUNDBERG ([phone])[facility] ([facility])[address] [place] [address] ALP [Catalytic activity/Vol] 176 U/L High 40-150 [facility] Comment on above: Performed By: #### L AB103, LAB17, [id number] ####Study Manager: RORO LUNDBERG ([id number])[facility] ([facility])[address] [place] [address] ALT [Catalytic activity/Vol] 40 U/L High <40 [facility] Comment on above: Performed By: #### L AB103, LAB17, [id number] ####Study Manager: RORO LUNDBERG ([phone])[facility])[address] Anion gap [Moles/Vol] 9 mmol/L Normal 3-13 [facility] Comment on above: Performed By: #### Marichuy BAUER, LAB17, [id number] ####Study Manager: RORO LUNDBERG ([id number])[facility] ([facility])[address] [place] [address] AST [Catalytic activity/Vol] 48 U/L High <34 [facility] Comment on above: Performed By: #### Marichuy BAUER, LAB17, [id number] ####Study Manager: RORO LUNDBERG ([phone])[facility] ([facility])[address] [place] [address] Bilirubin [Mass/Vol] 0.2 mg/dL Normal <1.2 [facility] Comment on above: Performed By: #### Marichuy BAUER, LAB17, [id number] ####Study Manager: RORO LUNDBERG ([id number])[facility] [place] [address] Calcium [Mass/Vol] 9.0 mg/dL Normal 8.4-10.2 [facility] Comment on above: Performed By: #### Marichuy BAUER, LAB17, [id number] ####Study Manager: RORO LUNDBERG ([id number])[facility] [place] [address] [place] Chloride [Moles/Vol] 102 mmol/L Normal 98-107 [facility] Comment on above: Performed By: #### Marichuy BAUER, LAB17, [id number] ####Study Manager: RORO LUNDBERG ([phone])[facility] [place] [address] [place] CO2 [Moles/Vol] 22 mmol/L Normal 22-29 [facility] Comment on above: Performed By: #### Marichuy BAUER, LAB17, [id number] ####Study Manager: RORO LUNDBERG ([phone])[facility] ([facility])[address] [place] [address] [place] Creatinine [Mass/Vol] 4.98 mg/dL High 0.72-1.25 [facility] Comment on above: Performed By: #### Marichuy BAUER, LAB17, [id number] ####Study Manager: ROOR LUNDBERG ([phone])[facility])[address] [place] [address] GLOMERULAR FILTRATION RATE ML/MIN/1.73 SQ M.PREDICTED 14.0 mL/min/1.73m*2 Low >60.0 S [facility] Comment on above: Result Comment: Calc ulation based on the Chronic Kidney Disease Epidemiology Collaboration (CKD-EPI) equation refit without adjustment for race Performed By: #### Marichuy BAUER, LAB17, [id number] ####Study Manager: RORO LUNDBERG ([phone])[address] Glucose [Mass/Vol] 271 mg/dL High 74-100 [facility] Comment on above: Performed By: #### Marichuy BAUER, LAB17, [id number] ####Study Manager: RORO LUNDBERG ([id number])[address] Potassium [Moles/Vol] 4.3 mmol/L Normal 3.5-5.1 [facility] Comment on above: Result Comment: [facility] potassium values may be up to 0.5 mmol/L lower than serum values. Performed By: #### Marichuy BAUER, LAB17, [id number] ####Study Manager: RORO LUNDBERG ([id number])[address] Protein [Mass/Vol] 6.3 g/dL Low 6.4-8.3 [facility] Comment on above: Performed By: #### Marichuy BAUER, LAB17, [id number] ####Study Manager: RORO LUNDBERG ([id number])[facility])[address] [place] [address] Sodium [Moles/Vol] 133 mmol/L Low 136-145 [facility] Comment on above: Performed By: #### Marichuy BAUER, LAB17, [id number] ####Study Manager: RORO [id number])[facility] ([facility])[address] [place] [address] Urea nitrogen [Mass/Vol] 31 mg/dL High 8-21 [facility] Comment on above: Performed By: #### L AB103, LAB17, [id number] ####Study Manager: RORO LUNDBERG ([phone])[facility] ([facility])[address] [place] [address] Comprehensive metabolic 1998 panelOrdered By: Evelyn Aquino on 08-28-2024 Albumin [Mass/Vol] 2.8 g/dL Low 3.5 - 5.0 g/dL [facility] ALP [Catalytic activity/Vol] 176 U/L High 40 - 150 U/L [facility] ALT [Catalytic activity/Vol] 40 U/L High NINF - 40 U/L [facility] Anion gap [Moles/Vol] 9 mmol/L 3 - 13 mmol/L [facility] AST [Catalytic activity/Vol] 48 U/L High NINF - 34 U/L [facility] Bilirubin [Mass/Vol] 0.2 mg/dL NINF - 1.2 mg/dL [facility] Calcium [Mass/Vol] 9 mg/dL 8.4 - 10. 2 mg/dL [facility] Chloride [Moles/Vol] 102 mmol/L 98 - 10 7 mmol/L [facility] CO2 [Moles/Vol] 22 mmol/L 22 - 29 mmol/L [facility] Creatinine [Mass/Vol] 4.98 mg/dL High 0.72 - 1.25 mg/dL [facility] GFR/1.73 sq M.predicted (S/P/Bld) [Vol rate/Area] 14 mL/min Low - PINF [facility] Comment on above: Calculation based on the Chronic Kidney Disease Epidemiology Collaboration (CKD-EPI) equation refit without adjustment for race Glucose [Mass/Vol] 271 mg/dL High 74 - 100 mg/dL [facility] Interpretation and review of laboratory results Abnormal [facility] Potassium [Moles/Vol] 4.3 mmol/L 3.5 - 5.1 mmol/L [facility] Comment on above: Plasma potassium willie ues may be up to 0.5 mmol/L lower than serum values. Protein [Mass/Vol] 6.3 g/dL Low 6.4 - 8.3 g/dL [facility] Sodium [Moles/Vol] 133 mmol/L Low 136 - 145 mmol/L [facility] Urea nitrogen [Mass/Vol] 31 mg/dL High 8 - 21 mg/d L [facility] Laboratory - Chemistry and C hemistry - challengeon 08-28-2024 Glucose [Mass/Vol] 335 mg/dL High 70 - 100 mg/dL [facility] Glucose [Mass/Vol] 229 mg/dL High 70 - 100 mg/dL [facility] Magnesium [Mass/Vol] 2 mg/dL 1.6 - 2 .6 mg/dL [facility] MAGNESIUMon 08-28-2024 Magnesium [Mass/Vol] 2.0 mg/dL Normal 1.6-2.6 [facility] Comment on above: Result Comment: THEODORA [place] COMMENTS: Higher values can be expected in females during menses. Performed By: #### L AB103, LAB17, [id number] ####Study Manager: RORO LUNDBERG ([phone])[facility] ([facility])[address] [place] [address] Magnesium [Mass/Vol]on 08-28 Higher values can be expected in females during menses. [facility] No Panel Informationon 08-28 Interpretation and review of laboratory results Abnormal [facility] Performed by: [place] [address] CLIA ID: [id number] [facility] Interpretation and review of laboratory results Abnormal [facility] Performed by: [place] [address] CLIA ID: [id number] [facility] Interpretation and review of laboratory results Normal [facility] PHOSPHORUSon 08-28-2024 Phosphate [Mass/Vol] 2.7 mg/dL Normal 2.3-4.7 [facility] Comment on above: Performed By: #### L AB103, LAB17, [id number] ####Study Manager: RORO LUNDBERG ([id number])[facility] ([facility])[address] [place] [address] [place] Phosphate [Moles/Vol]on 07-31 Phosphate [Mass/Vol] 2.7 mg/dL 2.3 - 4 .7 mg/dL [facility] Progress Noteon 08-28-2024 Progress Note Attestation [...] (including chart/data review/analysis (20), care coordination, and [id number] encounter), and was spent discussing/counselin g the patient/family regarding the diagnosis (20), care plan, and importance of compliance with the treatment plan for Farrah Gonzalse. I examined the patient independently. I reviewed [...] -Performing a medically appropriate exam and evaluation Zroan Gould MD, FACS Hepatobiliary Surgery (HPB) and Surgical Oncology Department of Surgery [facility], Located Within [facility] Department of General Surgery Daily Progress Note [...] U/L Final 08/27 (more content not included)... [facility] Progress Note Department of Internal Medicine Division of Endocrinology, Diabetes, & Metabolism Endocrinology Note Patient Name: Farrah Gonzales : 1980 AGE: 44 y.o. Room[facility]Bed: [facility] Admission Date: 08/23/2024 Visit Date: 08/28/2024 Reason for Endocrine Consult: Type 1 diabetes mellitus on insulin pump. Provider/Team Requesting Consult: Brayan Barros PCP: Kristal Sullivan MD Outpt Foreign Policy Officer: Yes . Jace Ko MD at outside [...] insulin pump. Outpt Follow Up-- With outside stave grader. SUBJECTIVE/HPI: CHIEF COMPLAINT: No chief complaint on [...] for the last 3 years, with a [employer] G6 CGM. He uses auto mode on [...] outpatient medications (more content not included)... Normal [facility] Progress Note Attestation with edits [...] center EOT 09/22. 7AM-5PM: contact resident on [facility] Med D (find by hovering over [...] 72 hours. CBC: Recent Labs 08/26/24 0552 08/27/2421508/28/24 0546 WBC 4.2 6.3 6.4 HGB 9.5* 10.5* 9.3* HCT 28.4* 32.3* 27.9* PLT 171 215 182 MCV 90.7 92.0 90.6 RDW 12.8 12.8 12.6 ABGs: No results for input(s): PHART, WJS8VMG, PO2ART, EAW3CDN, SO2ART, [id number] in the last 72 hours. Lactic Acid: [...] from e (more content not included)... 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 Problem: Safety - Adult Goal: Free from [...] Interventions Goal: Assess Nutritional Intake Outcome: Progressing Normal [facility] 30 Problem: Knowledge Deficit Goal: Patient/family/careg iver demonstrates understanding of disease process, treatment plan, medications, and discharge instructions 08/27/2024 175 by Mike Lopez RN Outcome: Progressing 08/27/2024 172 by Mike Lopez RN Outcome: Progressing Problem: Potential for Compromised Skin Integrity Goal: Skin Integrity is Maintained or Improved 08/27/20241753 by Mike Lopez RN Outcome: Progressing 08/27/2024 172 by Mike Lopez RN Outcome: Progressing Goal: Nutritional status is improving 08/27/20241753 by Mike Lopez RN Outcome: Progressing [...] Problem Interventions Goal: Assess Nutritional Intake 08/27/2024 175 by Mike Lopez RN Outcome: Progressing 08/27/2024 1722 by Mike Lopez RN Outcome: Progressing Normal [facility] 30 Problem: Knowledge Deficit Goal: Patient/family/careg iver [...] and maintained or improved Outcome: Progressing Normal [facility] 30 Problem: Knowledge Deficit Goal: Patient/family/careg iver demonstrates understanding of disease process, treatment plan, medications, and discharge instructions Outcome: Progressing Problem: Potential for Compromised Skin Integrity Goal: Skin Integrity is Maintained or Improved Outcome: Progressing Normal [facility] [id number] 08-27-2024 [id number] Spoke with [facility] Tammy and updated that plan was to discharge Friday with abx after dialysis. They are able to accept. OPAT faxed to facility. [facility] [phone] IV ancef continued. Plan for intermediate manager abx with dialysis. ID following- waiting for culture results. OPAT to be written. Anticipate discharge home with no needs. Normal [facility] CBC W Auto Differential pane l (Bld)on 08-27-2024 Basophils (Bld) [#/Vol] 0 10*3/uL 0.0 - 0.2 10*3/uL [facility] Basophils/100 WBC (Bld) 0.6 % 0.0 - 2.0 % [facility] Eosinophils (Bld) [#/Vol] 0.2 10*3/uL 0. 0 - 0.5 10*3/uL [facility] Eosinophils/100 WBC (Bld) 3.4 % 0.0 - 6.0 % [facility] Erythrocyte distribution width (RBC) [Ratio] 12.8 % 11.5 - 15.0 % [facility] Hematocrit (Bld) [Volume fraction] 32.3 % Low 40.0 - 52.0 % [facility] Hemoglobin (Bld) [Mass/Vol] 10.5 g/dL Low 13.0 - 18.0 g/dL [facility] Immature granulocytes (Bld) [#/Vol] 0.1 10*3/uL High NINF - 0.1 10*3/uL [facility] Immature granulocytes/100 WBC (Bld) 2.2 % High 0.0 - 2.0 % [facility] Interpretation and review of laboratory results Abnormal [facility] Lymphocytes (Bld) [#/Vol] 1.3 10*3/uL 1. 0 - 4.3 10*3/uL [facility] Lymphocytes/100 WBC (Bld) 21.4 % 15 .0 - 45.0 % [facility] MCH (RBC) [Entitic mass] 29.9 pg 26. 0 - 34.0 pg [facility] MCHC (RBC) [Mass/Vol] 32.5 % 30.5 - 36.0 % [facility] MCV (RBC) [Entitic vol] 92 fL 77.0 - 99.0 fL [facility] Monocytes (Bld) [#/Vol] 0.7 10*3/uL 0.0 - 0.9 10*3/uL [facility] Monocytes/100 WBC (Bld) 11 % 5.0 - 13.0 % [facility] Neutrophils (Bld) [#/Vol] 3.8 10*3/uL 1. 8 - 7.5 10*3/uL [facility] Neutrophils/100 WBC (Bld) 61.4 % 38 .0 - 82.0 % [facility] Nucleated RBC/100 WBC (Bld) [Ratio] 0 % [facility] Platelet mean volume (Bld) [Entitic vol] 9.9 fL 9.0 - 12.7 fL [facility] Platelets (Bld) [#/Vol] 215 10*3/uL 140 - 440 10*3/uL [facility] RBC (Bld) [#/Vol] 3.51 10*6/uL Low 4.40 - 5.9 0 10*6/uL [facility] WBC (Bld) [#/Vol] 6.3 10*3/uL 3.6 - 10.7 10*3/uL [facility] CBC WITH AUTO DIFFERENTIALon 08-27-2024 Basophils (Bld) [#/Vol] 0.0 10*3/uL Normal 0.0-0.2 [facility] Comment on above: Performed By: #### L [id number] ####Study Manager: RORO LUNDBERG ([phone])[facility])[address] [place] [address] Basophils/100 WBC (Bld) 0.6 % Normal 0.0-2.0 [facility] Comment on above: Performed By: #### L [id number] ####Study Manager: RORO LUNDBERG ([phone])[facility])[address] [place] [address] Eosinophils (Bld) [#/Vol] 0.2 10*3/uL Normal 0.0-0.5 [facility] Comment on above: Performed By: #### L [id number] ####Study Manager: RORO LUNDBERG ([phone])[facility])[address] [place] [address] Eosinophils/100 WBC (Bld) 3.4 % Normal 0.0-6.0 [facility] Comment on above: Performed By: #### L [id number] ####Study Manager: RORO LUNDBERG ([phone])[facility])[address] [place] [address] Erythrocyte distribution width (RBC) [Ratio] 12.8 % Normal 11.5-15.0 [facility] Comment on above: Performed By: #### L [id number] ####Study Manager: RORO LUNDBERG ([phone])[facility])[address] [place] [address] Hematocrit (Bld) [Volume fraction] 32.3 % Low 40.0-52.0 [facility] Comment on above: Performed By: #### L [id number] ####Study Manager: RORO LUNDBERG ([id number])[facility])[address] [place] [address] Hemoglobin (Bld) [Mass/Vol] 10.5 g/dL Low 13.0-18. 0 [facility] Comment on above: Performed By: #### L [id number] ####Study Manager: RORO LUNDBERG ([phone])[address] IMMATURE GRANS % 2.2 % High 0.0-2.0 [facility] Comment on above: Performed By: #### L [id number] ####Study Manager: RORO LUNDBERG ([phone])[address] IMMATURE GRANS ABSOLUTE 0.1 10*3/uL High <0.1 [facility] Comment on above: Performed By: #### L [id number] ####Study Manager: RORO LUNDBERG ([phone])[facility])[address] [place] [address] Lymphocytes (Bld) [#/Vol] 1.3 10*3/uL Normal 1.0-4.3 [facility] Comment on above: Performed By: #### L [id number] ####Study Manager: RORO LUNDBERG ([id number])[address] Lymphocytes/100 WBC (Bld) 21.4 % Normal 15.0-45.0 [facility] Comment on above: Performed By: #### L [id number] ####Study Manager: RORO LUNDBERG ([phone])[facility])[address] [place] [address] MCH (RBC) [Entitic mass] 29.9 pg Normal 26.0-34.0 [facility] Comment on above: Performed By: #### L [id number] ####Study Manager: RORO LUNDBERG ([phone])[facility])[address] [place] [address] MCHC 32.5 % Normal 30.5-36.0 [facility] Comment on above: Performed By: #### L [id number] ####Study Manager: RORO LUNDBERG ([phone])[facility])[address] [place] [address] MCV (RBC) [Entitic vol] 92.0 fL Normal 77.0-99.0 [facility] Comment on above: Performed By: #### L [id number] ####Study Manager: RORO LUNDBERG ([phone])[facility])[address] [place] [address] Monocytes (Bld) [#/Vol] 0.7 10*3/uL Normal 0.0-0.9 [facility] Comment on above: Performed By: #### L [id number] ####Study Manager: RORO LUNDBERG ([phone])[facility])[address] [place] [address] Monocytes/100 WBC (Bld) 11.0 % Normal 5.0-13.0 [facility] Comment on above: Performed By: #### L [id number] ####Study Manager: RORO LUNDBERG ([id number])[facility])[address] [place] [address] NEUTROPHILS ABSOLUTE 3.8 10*3/uL Normal 1.8-7.5 [facility] Comment on above: Performed By: #### L [id number] ####Study Manager: RORO LUNDBERG ([phone])[facility])[address] [place] [address] Neutrophils/100 WBC (Bld) 61.4 % Normal 38.0-82.0 [facility] Comment on above: Performed By: #### L [id number] ####Study Manager: RORO LUNDBERG ([phone])[facility])[address] [place] [address] NRBC 0.0 /100 WBCs Normal 0.0-2.0 [facility] Comment on above: Performed By: #### L [id number] ####Study Manager: RORO LUNDBERG ([phone])[facility])[address] [place] [address] Platelet mean volume (Bld) [Entitic vol] 9.9 fL Normal 9.0-12.7 [facility] Comment on above: Performed By: #### L [id number] ####Study Manager: RORO LUNDBERG ([id number])[facility] ([facility])[address] [place] [address] Platelets (Bld) [#/Vol] 215 10*3/uL Normal 140-440 [facility] Comment on above: Performed By: #### L [id number] ####Study Manager: RORO LUNDBERG ([id number])[facility] ([facility])[address] [place] [address] RBC (Bld) [#/Vol] 3.51 10*6/uL Low 4.40-5.90 [facility] Comment on above: Performed By: #### L [id number] ####Study Manager: RORO LUNDBERG ([id number])[facility] ([facility])[address] [place] [address] WBC (Bld) [#/Vol] 6.3 10*3/uL Normal 3.6-10.7 [facility] Comment on above: Performed By: #### L [id number] ####Study Manager: RORO LUNDBERG ([phone])[facility] ([facility])[address] [place] [address] COMPREHENSIVE METABOLIC PANE Jose 08-27-2024 Albumin [Mass/Vol] 3.2 g/dL Low 3.5-5.0 [facility] Comment on above: Performed By: #### L AB17, [id number], [id number] ####Study Manager: RORO LUNDBERG ([phone])[facility] [place] [address] ALP [Catalytic activity/Vol] 222 U/L High 40-150 [facility] Comment on above: Performed By: #### L [id number], [id number], [id number] ####Study Manager: RORO LUNDBERG ([phone])[facility] ([facility])[address] [place] [address] ALT [Catalytic activity/Vol] 70 U/L High <40 [facility] Comment on above: Performed By: #### Marichuy AB17, [id number], [id number] ####Study Manager: RORO LUNDBERG ([phone])[facility] ([facility])[address] [place] [address] Anion gap [Moles/Vol] 8 mmol/L Normal 3-13 [facility] Comment on above: Performed By: #### Marichuy AB17, [id number], [id number] ####Study Manager: RORO LUNDBERG ([phone])[facility] ([facility])[address] [place] [address] AST [Catalytic activity/Vol] 64 U/L High <34 [facility] Comment on above: Performed By: #### L AB17, [id number], [id number] ####Study Manager: RORO LUNDBERG ([phone])[facility] ([facility])[address] [place] [address] [place] Bilirubin [Mass/Vol] 0.3 mg/dL Normal <1.2 [facility] Comment on above: Performed By: #### L AB17, [id number], [id number] ####Study Manager: RORO LUNDBERG ([phone])[facility] ([facility])[address] [place] [address] Calcium [Mass/Vol] 9.5 mg/dL Normal 8.4-10.2 [facility] Comment on above: Performed By: #### L AB17, [id number], [id number] ####Study Manager: RORO LUNDBERG ([phone])[facility] ([facility])[address] [place] [address] Chloride [Moles/Vol] 102 mmol/L Normal 98-107 [facility] Comment on above: Performed By: #### L AB17, [id number], [id number] ####Study Manager: RORO LUNDBERG ([phone])[facility] ([facility])[address] [place] [address] CO2 [Moles/Vol] 24 mmol/L Normal 22-29 [facility] Comment on above: Performed By: #### L AB17, [id number], [id number] ####Study Manager: RORO LUNDBERG ([id number])[facility] ([facility])[address] [place] [address] Creatinine [Mass/Vol] 6.32 mg/dL High 0.72-1.25 [facility] Comment on above: Performed By: #### L AB17, [id number], KHR369 ####Study Manager: RORO LUNDBERG ([phone])[facility] ([facility])[address] [place] [address] GLOMERULAR FILTRATION RATE ML/MIN/1.73 SQ M.PREDICTED 10.5 mL/min/1.73m*2 Low >60.0 S [facility] Comment on above: Result Comment: Calc ulation based on the Chronic Kidney Disease Epidemiology Collaboration (CKD-EPI) equation refit without adjustment for race Performed By: #### L AB17, [id number], [id number] ####Study Manager: RORO LUNDBERG ([phone])[facility] ([facility])[address] [place] [address] [place] Glucose [Mass/Vol] 168 mg/dL High 74-100 [facility] Comment on above: Performed By: #### L AB17, [id number], [id number] ####Study Manager: RORO LUNDBERG ([phone])[facility])[address] [place] [address] [place] Potassium [Moles/Vol] 4.0 mmol/L Normal 3.5-5.1 [facility] Comment on above: Result Comment: [facility] potassium values may be up to 0.5 mmol/L lower than serum values. Performed By: #### L AB17, [id number], [id number] ####Study Manager: RORO LUNDBERG ([phone])[facility])[address] [place] [address] Protein [Mass/Vol] 7.0 g/dL Normal 6.4-8.3 [facility] Comment on above: Performed By: #### L AB17, [id number], [id number] ####Study Manager: RORO LUNDBERG ([phone])[facility])[address] [place] [address] Sodium [Moles/Vol] 134 mmol/L Low 136-145 [facility] Comment on above: Performed By: #### L AB17, [id number], [id number] ####Study Manager: RORO LUNDBERG ([phone])[facility] ([facility])[address] [place] [address] Urea nitrogen [Mass/Vol] 36 mg/dL High 8-21 [facility] Comment on above: Performed By: #### L AB17, [id number], [id number] ####Study Manager: RORO LUNDBERG ([phone])[address] Comprehensive metabolic 1998 panelon 08-27-2024 Albumin [Mass/Vol] 3.2 g/dL Low 3.5 - 5.0 g/dL [facility] ALP [Catalytic activity/Vol] 222 U/L High 40 - 150 U/L [facility] ALT [Catalytic activity/Vol] 70 U/L High NINF - 40 U/L [facility] Anion gap [Moles/Vol] 8 mmol/L 3 - 13 mmol/L [facility] AST [Catalytic activity/Vol] 64 U/L High NINF - 34 U/L [facility] Bilirubin [Mass/Vol] 0.3 mg/dL NINF - 1.2 mg/dL [facility] Calcium [Mass/Vol] 9.5 mg/dL 8.4 - 10. 2 mg/dL [facility] Chloride [Moles/Vol] 102 mmol/L 98 - 10 7 mmol/L [facility] CO2 [Moles/Vol] 24 mmol/L 22 - 29 mmol/L [facility] Creatinine [Mass/Vol] 6.32 mg/dL High 0.72 - 1.25 mg/dL [facility] GFR/1.73 sq M.predicted (S/P/Bld) [Vol rate/Area] 10.5 mL/min Low - PINF [facility] Comment on above: Calculation based on the Chronic Kidney Disease Epidemiology Collaboration (CKD-EPI) equation refit without adjustment for race Glucose [Mass/Vol] 168 mg/dL High 74 - 100 mg/dL [facility] Interpretation and review of laboratory results Abnormal [facility] Potassium [Moles/Vol] 4 mmol/L 3.5 - 5.1 mmol/L [facility] Comment on above: Plasma potassium willie ues may be up to 0.5 mmol/L lower than serum values. Protein [Mass/Vol] 7 g/dL 6.4 - 8.3 g/dL [facility] Sodium [Moles/Vol] 134 mmol/L Low 136 - 145 mmol/L [facility] Urea nitrogen [Mass/Vol] 36 mg/dL High 8 - 21 mg/d L [facility] Laboratory - Chemistry and C hemistry - challengeon 08-27-2024 Glucose [Mass/Vol] 345 mg/dL High 70 - 100 mg/dL [facility] Glucose [Mass/Vol] 209 mg/dL High 70 - 100 mg/dL [facility] Glucose [Mass/Vol] 260 mg/dL High 70 - 100 mg/dL [facility] Glucose [Mass/Vol] 79 mg/dL 70 - 100 mg/dL [facility] Magnesium [Mass/Vol] 2.1 mg/dL 1.6 - 2 .6 mg/dL [facility] MAGNESIUMon 08-27-2024 Magnesium [Mass/Vol] 2.1 mg/dL Normal 1.6-2.6 [facility] Comment on above: Result Comment: THEODORA R COMMENTS: Higher values can be expected in females during menses. Performed By: #### L AB17, [id number], [id number] ####Study Manager: RORO LUNDBERG ([id number])[facility] ([facility])[address] [place], [place] [id number] [facility] Magnesium [Mass/Vol]on 08-27 Higher values can be expected in females during menses. [facility] Cook123 No Panel Informationon 08-27 Interpretation and review of laboratory results Abnormal [facility] Performed by: [facility], [address] [place] [address] CLIA ID: [id number] [facility] Interpretation and review of laboratory results Abnormal [facility] Performed by: [facility], [address] [place] [address] CLIA ID: [id number] [facility] Interpretation and review of laboratory results Abnormal [facility] Performed by: [facility], [address] [place] [address] CLIA ID: [id number] [facility] Interpretation and review of laboratory results Normal [facility] Performed by: [facility], [address] [place] [address] CLIA ID: [id number] [facility] Cook123 [facility] Interpretation and review of laboratory results Normal [facility] Nursing Noteon 08-27-2024 Nursing Note Patient Name: Farrah Gonzales Patient : 1980 Acct: [id number] Date of Admission: 08/23/2024 Room/Bed: [facility] A Code Status: Full Code Allergies: Allergies[1] [...] - Before each treatment: Dialysis Machine No.: [id number] RO Machine Number: [id number] Dialyzer Lot No.: [id number] Tubing Lot Number: [id number] [employer] Secure: Yes Venous Parameters Set: Yes Arterial Parameters Set: Yes NS Bag: Yes Saline Line Double Clamped: Yes Dialyzer: Revaclear 300 Prime Volume (mL): 200 mL RO Machine Number: [id number] RO Machine Log Sheet Completed: Yes Machine Alarm Self Test: Completed, Passed (08/27/24 1300) Air Foam Detector: Tested, Proper Function, pH Reading Extracorporeal Circuit Tested for Integrity: Yes Machine Conductivity: 13..8 Manual Conductivity: 13.8 Manual Ph: 7.14 Bleach Test (Neg): Yes Bath Temperature: 36 ?C (96.8 ?F) Conductivity Meter Serial #: [id number] Machine Functioning Alarm Free? Yes Dialysis Bath: K+ (Potassium): 3 Ca+ (Calcium): 2.5 Na+ (Sodium): 137 HCO3 (Bicarb): 32 Bicarbonate Concentrate Lot No.: [id number] Acid Concentrate Lot No.: [id number] Chlorine Testing - Before each treatment and [...] Rmvd 55 (more content not included)... Normal [facility] Nursing Note Ok per primary to take shower Normal [facility] PHOSPHORUSon 08-27-2024 Phosphate [Mass/Vol] 2.9 mg/dL Normal 2.3-4.7 [facility] Comment on above: Performed By: #### L AB17, [id number], [id number] ####Study Manager: RORO LUNDBERG ([phone])[address] Phosphate [Moles/Vol]on 07-31 Phosphate [Mass/Vol] 2.9 mg/dL 2.3 - 4 .7 mg/dL [facility] Progress Noteon 08-27-2024 Progress Note Attestation [...] Gonzales : 1980 AGE: 44 y.o. Room/Bed: [facility]/[address] Admission Date: 08/23/2024 Visit Date: 08/27/2024 Reason for Endocrine Consult: Type 1 diabetes mellitus on insulin pump. Provider/Team Requesting Consult: Brayan Barros PCP: Kristal Sullivan MD Outpt Foreign Policy Officer: Yes . Jace Ko MD at outside [...] insulin pump. Outpt Follow Up-- With outside stave grader. SUBJECTIVE/HPI: CHIEF COMPLAINT: No chief complaint on [...] for the last 3 years, with a [employer] G6 CGM. He uses auto mode on [...] mentioned in HPI. OBJECTIVE: Vitals: 08/26/24 1705 08/26/247 08/26/24 2353 08/27/24 0733 BP: (!) 162/88 [...] Height: Physical Exam (more content not included)... Normal [facility] Progress Note Attestation with edits by Maria Luz Trujillo MD at 08/27/2024 11:11 AM Patient seen and examined personally (Date of Sevice: 08/27/24). I agree with the findings and plan of care as documented in the resident's note. I have edited the resident note below, and my thoughts are demarcated in Green. 7AM-5PM: contact resident on [facility] Med D (find by hovering over [...] 0519 08/25/24 0725 08/25/24 1101 08/25/24 1655 08/25/24205708/25/2408/26/25 0552 08/26/24 0730 08/26/24 1039 08/26/24 1702 [...] 12.8 ABGs: No results for input(s): PHART, STD8SWZ, PO2ART, MCG0VHP, SO2ART, L0URDWCJ in the last 72 hours. Lactic Acid: [...] liver enzymes - Per HPB, MRI from [facility] shows liver hemangioma so no surgical intervention needed - Monitor and trend daily LFTs Resolved Problems: Diarrhea, resolved Intractable Nausea/Vomiting, resolved Unclear etiology. C. Diff by PCR negative. Likely due to abx use. - Imodium as needed - Compazine as need (more content not included)... Normal [facility] [id number] 08-26-2024 [id number] IV ancef continued. Repeat cultures pending. 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 Nephrology following. Anticipate discharge home with no needs. Normal [facility] Bacteria identified Cx Nom ( Bld)on 08-26-2024 Interpretation and review of laboratory results Abnormal [facility] Blood Collection Site: Left Forearm [facility] Bacteria identified Cx Nom ( Bld)Ordered By: Soraida Phelps on 08-26-2024 Interpretation and review of laboratory results Abnormal [facility] PBP2A Negative [facility] Blood Collection Site: Right Upper Arm [facility] CBC W Auto Differential pane l (Bld)on 08-26-2024 Basophils (Bld) [#/Vol] 0 10*3/uL 0.0 - 0.2 10*3/uL [facility] Basophils/100 WBC (Bld) 1 % 0.0 - 2.0 % [facility] Eosinophils (Bld) [#/Vol] 0.1 10*3/uL 0. 0 - 0.5 10*3/uL [facility] Eosinophils/100 WBC (Bld) 3.1 % 0.0 - 6.0 % [facility] Erythrocyte distribution width (RBC) [Ratio] 12.8 % 11.5 - 15.0 % [facility] Hematocrit (Bld) [Volume fraction] 28.4 % Low 40.0 - 52.0 % [facility] Hemoglobin (Bld) [Mass/Vol] 9.5 g/dL Low 13.0 - 18.0 g/dL [facility] Immature granulocytes (Bld) [#/Vol] 0.1 10*3/uL High NINF - 0.1 10*3/uL [facility] Immature granulocytes/100 WBC (Bld) 1.2 % 0.0 - 2.0 % [facility] Interpretation and review of laboratory results Abnormal [facility] Lymphocytes (Bld) [#/Vol] 1 10*3/uL 1. 0 - 4.3 10*3/uL [facility] Lymphocytes/100 WBC (Bld) 24.8 % 15 .0 - 45.0 % [facility] MCH (RBC) [Entitic mass] 30.4 pg 26. 0 - 34.0 pg [facility] MCHC (RBC) [Mass/Vol] 33.5 % 30.5 - 36.0 % [facility] MCV (RBC) [Entitic vol] 90.7 fL 77.0 - 99.0 fL [facility] Monocytes (Bld) [#/Vol] 0.6 10*3/uL 0.0 - 0.9 10*3/uL [facility] Monocytes/100 WBC (Bld) 15 % High 5.0 - 13.0 % [facility] Neutrophils (Bld) [#/Vol] 2.3 10*3/uL 1. 8 - 7.5 10*3/uL [facility] Neutrophils/100 WBC (Bld) 54.9 % 38 .0 - 82.0 % [facility] Nucleated RBC/100 WBC (Bld) [Ratio] 0 % [facility] Platelet mean volume (Bld) [Entitic vol] 9.6 fL 9.0 - 12.7 fL [facility] Platelets (Bld) [#/Vol] 171 10*3/uL 140 - 440 10*3/uL [facility] RBC (Bld) [#/Vol] 3.13 10*6/uL Low 4.40 - 5.9 0 10*6/uL [facility] WBC (Bld) [#/Vol] 4.2 10*3/uL 3.6 - 10.7 10*3/uL [facility] CBC WITH AUTO DIFFERENTIALon 08-26-2024 Basophils (Bld) [#/Vol] 0.0 10*3/uL Normal 0.0-0.2 [facility] Comment on above: Performed By: #### L [id number] ####Study Manager: RORO LUNDBERG ([phone])[facility])[address] [place] [address] Basophils/100 WBC (Bld) 1.0 % Normal 0.0-2.0 [facility] Comment on above: Performed By: #### L [id number] ####Study Manager: RORO LUNDBERG ([phone])[facility])[address] [place] [address] Eosinophils (Bld) [#/Vol] 0.1 10*3/uL Normal 0.0-0.5 [facility] Comment on above: Performed By: #### L [id number] ####Study Manager: RORO LUNDBERG ([phone])[facility])[address] [place] [address] Eosinophils/100 WBC (Bld) 3.1 % Normal 0.0-6.0 [facility] Comment on above: Performed By: #### L [id number] ####Study Manager: RORO LUNDBERG ([phone])[facility])[address] [place] [address] Erythrocyte distribution width (RBC) [Ratio] 12.8 % Normal 11.5-15.0 [facility] Comment on above: Performed By: #### L [id number] ####Study Manager: RORO LUNDBERG ([phone])[facility])[address] [place] [address] Hematocrit (Bld) [Volume fraction] 28.4 % Low 40.0-52.0 [facility] Comment on above: Performed By: #### L [id number] ####Study Manager: RORO LUNDBERG ([phone])[facility])[address] [place] [address] Hemoglobin (Bld) [Mass/Vol] 9.5 g/dL Low 13.0-18. 0 [facility] Comment on above: Performed By: #### L [id number] ####Study Manager: RORO LUNDBERG ([phone])[facility])[address] [place] [address] IMMATURE GRANS % 1.2 % Normal 0.0-2.0 [facility] Comment on above: Performed By: #### L [id number] ####Study Manager: RORO LUNDBERG ([phone])[facility])[address] [place] [address] IMMATURE GRANS ABSOLUTE 0.1 10*3/uL High <0.1 [facility] Comment on above: Performed By: #### L [id number] ####Study Manager: RORO LUNDBERG ([phone])[facility])[address] [place] [address] Lymphocytes (Bld) [#/Vol] 1.0 10*3/uL Normal 1.0-4.3 [facility] Comment on above: Performed By: #### L [id number] ####Study Manager: RORO LUNDBERG ([phone])[facility])[address] [place] [address] Lymphocytes/100 WBC (Bld) 24.8 % Normal 15.0-45.0 [facility] Comment on above: Performed By: #### L [id number] ####Study Manager: RORO LUNDBERG ([phone])[facility])[address] [place] [address] MCH (RBC) [Entitic mass] 30.4 pg Normal 26.0-34.0 [facility] Comment on above: Performed By: #### L [id number] ####Study Manager: RORO LUNDBERG ([id number])[facility])[address] [place] [address] MCHC 33.5 % Normal 30.5-36.0 [facility] Comment on above: Performed By: #### L [id number] ####Study Manager: RORO LUNDBERG ([phone])[facility])[address] [place] [address] MCV (RBC) [Entitic vol] 90.7 fL Normal 77.0-99.0 [facility] Comment on above: Performed By: #### L [id number] ####Study Manager: RORO LUNDBERG ([phone])[facility] ([facility])[address] [place] [address] Monocytes (Bld) [#/Vol] 0.6 10*3/uL Normal 0.0-0.9 [facility] Comment on above: Performed By: #### L [id number] ####Study Manager: RORO LUNDBERG ([phone])[facility] ([facility])[address] [place] [address] Monocytes/100 WBC (Bld) 15.0 % High 5.0-13.0 [facility] Comment on above: Performed By: #### L [id number] ####Study Manager: RORO LUNDBERG ([phone])[facility] ([facility])[address] [place] [address] NEUTROPHILS ABSOLUTE 2.3 10*3/uL Normal 1.8-7.5 [facility] Comment on above: Performed By: #### L [id number] ####Study Manager: RORO LUNDBERG ([id number])[facility] ([facility])[address] [place] [address] Neutrophils/100 WBC (Bld) 54.9 % Normal 38.0-82.0 [facility] Comment on above: Performed By: #### L [id number] ####Study Manager: RORO LUNDBERG ([phone])[facility] ([facility])[address] [place] [address] NRBC 0.0 /100 WBCs Normal 0.0-2.0 [facility] Comment on above: Performed By: #### L [id number] ####Study Manager: RORO LUNDBERG ([id number])[facility])[address] [place] [address] Platelet mean volume (Bld) [Entitic vol] 9.6 fL Normal 9.0-12.7 [facility] Comment on above: Performed By: #### L [id number] ####Study Manager: RORO LUNDBERG ([phone])[facility] ([facility])[address] [place] [address] Platelets (Bld) [#/Vol] 171 10*3/uL Normal 140-440 [facility] Comment on above: Performed By: #### L [id number] ####Study Manager: RORO LUNDBERG ([id number])[facility] ([facility])[address] [place] [address] RBC (Bld) [#/Vol] 3.13 10*6/uL Low 4.40-5.90 [facility] Comment on above: Performed By: #### L [id number] ####Study Manager: RORO LUNDBERG ([id number])[facility] ([facility])[address] [place] [address] WBC (Bld) [#/Vol] 4.2 10*3/uL Normal 3.6-10.7 [facility] Comment on above: Performed By: #### L [id number] ####Study Manager: RORO LUNDBERG ([id number])[facility] ([facility])[address] [place] [address] COMPREHENSIVE METABOLIC PANE Jose 08-26-2024 Albumin [Mass/Vol] 2.7 g/dL Low 3.5-5.0 [facility] Comment on above: Performed By: #### L [id number] #### Study Manager: RORO LUNDBERG ([phone]) [facility] ([facility]) [address] [place] [address] ALP [Catalytic activity/Vol] 206 U/L High 40-150 [facility] Comment on above: Performed By: #### L [id number] #### Study Manager: RORO LUNDBERG ([id number]) [facility] ([facility]) [address] [place] [address] ALT [Catalytic activity/Vol] 109 U/L High <40 [facility] Comment on above: Performed By: #### L [id number] #### Study Manager: RORO LUNDBERG ([id number]) [facility] ([facility]) [address] [place] [address] Anion gap [Moles/Vol] 10 mmol/L Normal 3-13 [facility] Comment on above: Performed By: #### L [id number] #### Study Manager: RORO LUNDBERG ([id number]) [facility] ([facility]) [address] [place] [address] AST [Catalytic activity/Vol] 114 U/L High <34 [facility] Comment on above: Performed By: #### L [id number] #### Study Manager: RORO LUNDBERG ([id number]) [facility] ([facility]) [address] [place] [address] Bilirubin [Mass/Vol] 0.3 mg/dL Normal <1.2 [facility] Comment on above: Performed By: #### L [id number] #### Study Manager: RORO LUNDBERG ([phone]) [facility] ([facility]) [address] [place] [address] Calcium [Mass/Vol] 9.0 mg/dL Normal 8.4-10.2 [facility] Comment on above: Performed By: #### L [id number] #### Study Manager: RORO LUNDBERG ([phone]) [facility] ([facility]) [address] [place] [address] Chloride [Moles/Vol] 102 mmol/L Normal 98-107 [facility] Comment on above: Performed By: #### L [id number] #### Study Manager: RORO LUNDBERG ([phone]) [facility] ([facility]) [address] [place] [address] [place] CO2 [Moles/Vol] 23 mmol/L Normal 22-29 [facility] Comment on above: Performed By: #### L [id number] #### Study Manager: RORO LUNDBERG ([id number]) [facility] ([facility]) [address] [place] [address] Creatinine [Mass/Vol] 5.33 mg/dL High 0.72-1.25 [facility] Comment on above: Performed By: #### L [id number] #### Study Manager: RORO LUNDBERG ([id number]) [facility]) [address] [place] [address] GLOMERULAR FILTRATION RATE ML/MIN/1.73 SQ M.PREDICTED 12.9 mL/min/1.73m*2 Low >60.0 S [facility] Comment on above: Result Comment: Calc ulation based on the Chronic Kidney Disease Epidemiology Collaboration (CKD-EPI) equation refit without adjustment for race Performed By: #### L [id number] #### Study Manager: ROOR LUNDBERG ([phone]) [facility]) [address] [place] [address] Glucose [Mass/Vol] 248 mg/dL High 74-100 [facility] Comment on above: Performed By: #### L [id number] #### Study Manager: RORO LUNDBERG ([id number]) [facility]) [address] [place] [address] Potassium [Moles/Vol] 4.4 mmol/L Normal 3.5-5.1 [facility] Comment on above: Result Comment: [facility] potassium values may be up to 0.5 mmol/L lower than serum values. Performed By: #### L [id number] #### Study Manager: RORO LUNDBERG ([id number]) [facility]) [address] [place] [address] Protein [Mass/Vol] 6.3 g/dL Low 6.4-8.3 [facility] Comment on above: Performed By: #### L [id number] #### Study Manager: RORO LUNDBERG ([id number]) [facility]) [address] [place] [address] Result Comment: Seru m protein values are higher than plasma values. Samples from recumbent persons are lower by up to 0.5 g/dL as compared to ambulatory persons. After 60 years values are lower by up to 0.2 g/dL. Sodium [Moles/Vol] 135 mmol/L Low 136-145 [facility] Comment on above: Performed By: #### L [id number] #### Study Manager: RORO LUNDBERG ([id number]) [facility] [address] [place] [address] Urea nitrogen [Mass/Vol] 30 mg/dL High 8-21 [facility] Comment on above: Performed By: #### L [id number] #### Study Manager: RORO LUNDBERG ([id number]) [facility] ([facility]) [address] [place] [address] Comprehensive metabolic 1998 panelon 08-26-2024 Albumin [Mass/Vol] 2.7 g/dL Low 3.5 - 5.0 g/dL [facility] ALP [Catalytic activity/Vol] 206 U/L High 40 - 150 U/L [facility] ALT [Catalytic activity/Vol] 109 U/L High NINF - 40 U/L [facility] Anion gap [Moles/Vol] 10 mmol/L 3 - 13 mmol/L [facility] AST [Catalytic activity/Vol] 114 U/L High NINF - 34 U/L [facility] Bilirubin [Mass/Vol] 0.3 mg/dL NINF - 1.2 mg/dL [facility] Calcium [Mass/Vol] 9 mg/dL 8.4 - 10. 2 mg/dL [facility] Chloride [Moles/Vol] 102 mmol/L 98 - 10 7 mmol/L [facility] CO2 [Moles/Vol] 23 mmol/L 22 - 29 mmol/L [facility] Creatinine [Mass/Vol] 5.33 mg/dL High 0.72 - 1.25 mg/dL [facility] GFR/1.73 sq M.predicted (S/P/Bld) [Vol rate/Area] 12.9 mL/min Low - PINF [facility] Comment on above: Calculation based on the Chronic Kidney Disease Epidemiology Collaboration (CKD-EPI) equation refit without adjustment for race Glucose [Mass/Vol] 248 mg/dL High 74 - 100 mg/dL [facility] Interpretation and review of laboratory results Abnormal [facility] Potassium [Moles/Vol] 4.4 mmol/L 3.5 - 5.1 mmol/L [facility] Comment on above: Plasma potassium willie ues may be up to 0.5 mmol/L lower than serum values. Protein [Mass/Vol] 6.3 g/dL Low 6.4 - 8.3 g/dL [facility] Sodium [Moles/Vol] 135 mmol/L Low 136 - 145 mmol/L [facility] Urea nitrogen [Mass/Vol] 30 mg/dL High 8 - 21 mg/d L [facility] HEPATIC FUNCTION PANELon Bilirubin.indirect [Mass/Vol] 0.1 mg/dL Normal <0.5 [facility] Comment on above: Performed By: #### L [id number] #### Study Manager: RORO LUNDBERG ([id number]) [facility] ([facility]) [address] [place] [address] Hepatic function 2000 panelO rdered By: Carmelita Carolina on 08-26-2024 Albumin [Mass/Vol] 2.7 g/dL Low 3.5 - 5.0 g/dL [facility] ALP [Catalytic activity/Vol] 206 U/L High 40 - 150 U/L [facility] ALT [Catalytic activity/Vol] 109 U/L High NINF - 40 U/L [facility] AST [Catalytic activity/Vol] 114 U/L High NINF - 34 U/L [facility] Bilirubin [Mass/Vol] 0.3 [facility] Bilirubin.conjugated [Mass/Vol] 0.1 mg/dL [facility] mg/dL [facility] Interpretation and review of laboratory results Abnormal [facility] Protein [Mass/Vol] 6.3 g/dL Low 6.4 - 8.3 g/dL [facility] Comment on above: Serum protein values are higher than plasma values. Samples from recumbent persons are lower by up to 0.5 g/dL as compared to ambulatory persons. After 60 years values are lower by up to 0.2 g/dL. [facility] - Chemistry and C hemistry - challengeon 08-26-2024 Glucose [Mass/Vol] 212 mg/dL High 70 - 100 mg/dL [facility] Glucose [Mass/Vol] 169 mg/dL High 70 - 100 mg/dL [facility] Glucose [Mass/Vol] 359 mg/dL High 70 - 100 mg/dL [facility] Glucose [Mass/Vol] 247 mg/dL High 70 - 100 mg/dL [facility] Magnesium [Mass/Vol] 2.1 mg/dL 1.6 - 2 .6 mg/dL [facility] - Microbiology an d Antimicrobial susceptibilityon 08-26-2024 Bacteria identified Cx Nom (Bld) Staphylococcus aureus Critically abnormal [facility] Comment on above: ID consult required per med staff policy dated 2021. This is an edited result. Previous organism was Gram-positive cocci on 08/24/2024 at 0543 EDT. Laboratory - Microbiology an d Antimicrobial susceptibilityOrdered By: Soraida Manjeet Phelps on 08-26-2024 Bacteria identified Cx Nom (Bld) Staphylococcus aureus Critically abnormal [facility] Comment on above: ID consult required per med staff policy dated 2021. For identification and/or sensitivity, refer to culture collected on: 08/23/24 at 1303([facility]-[id number]) This is an edited result. Previous organism was Gram-positive cocci on 08/24/2024 at 0543 EDT. MAGNESIUMon 08-26-2024 Magnesium [Mass/Vol] 2.1 mg/dL Normal 1.6-2.6 [facility] Comment on above: Result Comment: THEODORA [place] COMMENTS: Higher values can be expected in females during menses. Performed By: #### L [id number] #### Study Manager: RORO LUNDBERG ([id number]) [facility] [address] [place] [address] Magnesium [Mass/Vol]on 08-26 Higher values can be expected in females during menses. [facility] No Panel Informationon 08-26 Interpretation and review of laboratory results Abnormal [facility] Performed by: [address] [address] CLIA ID: [id number] [facility] Interpretation and review of laboratory results Abnormal [facility] Performed by: [address] [address] CLIA ID: [id number] [facility] Interpretation and review of laboratory results Abnormal [facility] Performed by: [address] [address] CLIA ID: [id number] [facility] Interpretation and review of laboratory results Abnormal [facility] Performed by: [address] [address] CLIA ID: [id number] [facility] Interpretation and review of laboratory results Normal [facility] PHOSPHORUSon 08-26-2024 Phosphate [Mass/Vol] 2.9 mg/dL Normal 2.3-4.7 [facility] Comment on above: Performed By: #### L [id number] #### Study Manager: RORO LUNDBERG ([id number]) [facility] ([facility]) [address] [place] [address] Phosphate [Moles/Vol]on 07-30 Phosphate [Mass/Vol] 2.9 mg/dL 2.3 - 4 .7 mg/dL [facility] Progress Noteon 08-26-2024 Progress Note Attestation [...] Gonzales : 1980 AGE: 44 y.o. Room[facility]: [facility] Admission Date: 08/23/2024 Visit Date: 08/26/2024 Reason for Endocrine Consult: Type 1 diabetes mellitus on insulin pump. Provider/Team Requesting Consult: Brayan Barros PCP: Kristal Sullivan MD Outpt Foreign Policy Officer: Yes . Jace Ko MD at outside [...] insulin pump. Outpt Follow Up-- With outside stave grader. SUBJECTIVE/HPI: CHIEF COMPLAINT: No chief complaint on [...] for the last 3 years, with a [employer] G6 CGM. He uses auto mode on [...] 98 Resp: 15 17 18 Temp: 36.1 ?C (96.9 ?F) 37.2 ?C (98.9 ?F) 36.8 ?C (98.3 ?F) TempSrc: Temporal Temporal Temporal SpO2: 97% 94% 96% Weight: Height: Physical Exam Constitutional: General: He is not in acute distress. Cardiovascular: Rate and Rhythm: Regular rhythm. Tachycardia present. Pulses: Normal pulses. Heart sounds: No mu (more content not included)... Normal [facility] Progress Note Attestation with edits [...] blood culture finalization 7AM-5PM: contact resident on [facility] Med D (find by hovering over [...] Labs BMP: Recent Labs 08/23/24 1300 08/24/24 0412 08/25/24 0519 NA 134* 135* 135* K 4.4 4.0 3.5 CL 99 101 98 CO2 20* 19* 24 BUN 59* 27* 43* CREATININE 9.57* 5.47* 7.05* CALCIUM 8.8 8.8 9.5 MG -- 1.9 2.1 PHOS -- 2.9 3.9 LFTs: Recent Labs 08/23/24 1300 08/24/24 0308 08/24/24 04108/25/24 0519 AST 22 -- 81* 110* ALT 10 -- 37 63* PROT 6.4 -- 6.2* 6.7 ALBUMIN 3.3* -- 2.9* 3.1* BILITOT 0.5 -- 0.5 0.4 BILIRUBINU -- Negative -- -- ALKPHOS 85 -- 80 128 LIPASE -- -- 78* -- Glucose: Recent Labs 08/23/24 1300 08/24/24 04108/24/24 1757 08/24/24205308/24/24220708/25/24 0508/25/24 0725 GLUCOSE 224* 140* -- -- -- 128* -- POCGLU -- -- 355* 405* 350* -- 225* Procal: Recent Labs 08/23/24 1300 PROCAL 5.94* CBC: Recent Labs 08/23/24 1300 08/24/2441108/25/24 0519 WBC 20.3* 10.7 6.8 HGB 10.4* 9.6* 9.6* HCT 29.5* 28.3* 28.2* PLT 177 153 171 MCV 88.3 89.8 89.8 RDW 13.0 13.0 13.0 ABGs: No results for input(s): PHART, LEK7QFT, PO2ART, VRS8BWD, SO2ART, Q0SEBHCG in the last 72 hours. Lactic Acid: [...] to be ne (more content not included)... Normal [facility] [id number] 08-25-2024 [id number] Dialysis cath removed yesterday for line holiday. If HD needed a temp line can be placed per ID. Repeat culture ordered- 1 set pending. IV ancef continued- possible need for fci abx. GI s/o. Hepatobiliary surg consulted. Endo/ ID following. Anticipate discharge home with no needs. Normal [facility] BLOOD CULTUREon 08-25-2024 Bacteria identified Cx Nom (Bld) BLOOD CULTURE Reference No growth at 5 days ORDER COMMENTS: Blood Collection Site: Left Antecubital [ S = SUSCEPTIBLE R = RESISTANT I = INTERMEDIATE S-DD = Susceptible-dose dependent NS = Non-susceptible NO = No Interpretation ] Normal [facility] Comment on above: Performed By: #### L [id number] #### Study Manager: RORO LUNDBERG ([id number]) [address] Bacteria identified Cx Nom (Bld) BLOOD CULTURE Reference No growth at 5 days ORDER COMMENTS: Blood Collection Site: Left Arm [ S = SUSCEPTIBLE R = RESISTANT I = INTERMEDIATE S-DD = Susceptible-dose dependent NS = Non-susceptible NO = No Interpretation ] Normal [facility] Comment on above: Performed By: #### L [id number] ####Study Manager: RORO LUNDBERG ([id number])[address] C. DIFFICILE BY PCR WITH REF CESAR TO EIAon 08-25-2024 C. DIFFICILE BY PCR WITH REFLEX TO EIA C. DIFFICILE TOXIN PCR Reference Not Detected Not Detected ORDER COMMENTS: C. difficile infection is unlikely to be present. Methodology: Real-time PCR Normal [facility] Comment on above: Performed By: #### L [id number] ####Study Manager: RORO LUNDBERG ([id number])[facility])[address] [place] [address] C. difficile toxin genes LAVERN +probe Ql (Stl)on 08-25-2024 C. difficile toxin B tcdB gene LAVERN+probe Ql (Stl) Not detected Not Detected [facility] Interpretation and review of laboratory results Normal [facility] C. difficile infection is unlikely to be present. Methodology: Real-time PCR [facility] CBC W Auto Differential pane l (Bld)on 08-25-2024 Basophils (Bld) [#/Vol] 0 10*3/uL 0.0 - 0.2 10*3/uL [facility] Basophils/100 WBC (Bld) 0.4 % 0.0 - 2.0 % [facility] Eosinophils (Bld) [#/Vol] 0.2 10*3/uL 0. 0 - 0.5 10*3/uL [facility] Eosinophils/100 WBC (Bld) 3.1 % 0.0 - 6.0 % [facility] Erythrocyte distribution width (RBC) [Ratio] 13 % 11.5 - 15.0 % [facility] Hematocrit (Bld) [Volume fraction] 28.2 % Low 40.0 - 52.0 % [facility] Hemoglobin (Bld) [Mass/Vol] 9.6 g/dL Low 13.0 - 18.0 g/dL [facility] Immature granulocytes (Bld) [#/Vol] 0 10*3/uL NINF - 0.1 10*3/uL [facility] Immature granulocytes/100 WBC (Bld) 0.6 % 0.0 - 2.0 % [facility] Interpretation and review of laboratory results Abnormal [facility] Lymphocytes (Bld) [#/Vol] 0.7 10*3/uL Low 1. 0 - 4.3 10*3/uL [facility] Lymphocytes/100 WBC (Bld) 10 % Low 15 .0 - 45.0 % [facility] MCH (RBC) [Entitic mass] 30.6 pg 26. 0 - 34.0 pg [facility] MCHC (RBC) [Mass/Vol] 34 % 30.5 - 36.0 % [facility] MCV (RBC) [Entitic vol] 89.8 fL 77.0 - 99.0 fL [facility] Monocytes (Bld) [#/Vol] 0.5 10*3/uL 0.0 - 0.9 10*3/uL [facility] Monocytes/100 WBC (Bld) 7.4 % 5.0 - 13.0 % [facility] Neutrophils (Bld) [#/Vol] 5.3 10*3/uL 1. 8 - 7.5 10*3/uL [facility] Neutrophils/100 WBC (Bld) 78.5 % 38 .0 - 82.0 % [facility] Nucleated RBC/100 WBC (Bld) [Ratio] 0 % [facility] Platelet mean volume (Bld) [Entitic vol] 10.1 fL 9.0 - 12.7 fL [facility] Platelets (Bld) [#/Vol] 171 10*3/uL 140 - 440 10*3/uL [facility] RBC (Bld) [#/Vol] 3.14 10*6/uL Low 4.40 - 5.9 0 10*6/uL [facility] WBC (Bld) [#/Vol] 6.8 10*3/uL 3.6 - 10.7 10*3/uL [facility] CBC WITH AUTO DIFFERENTIALon 08-25-2024 Basophils (Bld) [#/Vol] 0.0 10*3/uL Normal 0.0-0.2 [facility] Comment on above: Performed By: #### L [id number] #### Study Manager: RORO LUNDBERG ([id number]) [facility] ([facility]) [address] [place] [address] Basophils/100 WBC (Bld) 0.4 % Normal 0.0-2.0 [facility] Comment on above: Performed By: #### L [id number] #### Study Manager: RORO [id number]) [facility] ([facility]) [address] [place] [address] [place] Eosinophils (Bld) [#/Vol] 0.2 10*3/uL Normal 0.0-0.5 [facility] Comment on above: Performed By: #### L [id number] #### Study Manager: RORO [id number]) [facility] ([facility]) [address] [place] [address] [place] Eosinophils/100 WBC (Bld) 3.1 % Normal 0.0-6.0 [facility] Comment on above: Performed By: #### L [id number] #### Study Manager: RORO [id number]) [facility]) [address] [place] [address] Erythrocyte distribution width (RBC) [Ratio] 13.0 % Normal 11.5-15.0 [facility] Comment on above: Performed By: #### L [id number] #### Study Manager: RORO LUNDBERG ([id number]) [facility]) [address] [place] [address] Hematocrit (Bld) [Volume fraction] 28.2 % Low 40.0-52.0 [facility] Comment on above: Performed By: #### L [id number] #### Study Manager: RORO LUNDBERG ([id number]) [facility]) [address] [place] [address] Hemoglobin (Bld) [Mass/Vol] 9.6 g/dL Low 13.0-18. 0 [facility] Comment on above: Performed By: #### L [id number] #### Study Manager: RORO LUNDBERG ([id number]) [facility]) [address] [place] [address] IMMATURE GRANS % 0.6 % Normal 0.0-2.0 [facility] Comment on above: Performed By: #### L [id number] #### Study Manager: RORO LUNDBERG ([id number]) [facility]) [address] [place] [address] IMMATURE GRANS ABSOLUTE 0.0 10*3/uL Normal <0.1 [facility] Comment on above: Performed By: #### L [id number] #### Study Manager: RORO LUNDBERG ([id number]) [facility]) [address] [place] [address] Lymphocytes (Bld) [#/Vol] 0.7 10*3/uL Low 1.0-4.3 [facility] Comment on above: Performed By: #### L [id number] #### Study Manager: RORO LUNDBERG ([id number]) [facility]) [address] [place] [address] [place] Lymphocytes/100 WBC (Bld) 10.0 % Low 15.0-45.0 [facility] Comment on above: Performed By: #### L [id number] #### Study Manager: RORO LUNDBERG ([id number]) [facility] ([facility]) [address] [place] [address] MCH (RBC) [Entitic mass] 30.6 pg Normal 26.0-34.0 [facility] Comment on above: Performed By: #### L [id number] #### Study Manager: RORO LUNDBERG ([id number]) [facility] ([facility]) [address] [place] [address] MCHC 34.0 % Normal 30.5-36.0 [facility] Comment on above: Performed By: #### L [id number] #### Study Manager: RORO LUNDBERG ([id number]) [facility] ([facility]) [address] [place] [address] MCV (RBC) [Entitic vol] 89.8 fL Normal 77.0-99.0 [facility] Comment on above: Performed By: #### L [id number] #### Study Manager: RORO LUNDBERG ([id number]) [facility] ([facility]) [address] [place] [address] Monocytes (Bld) [#/Vol] 0.5 10*3/uL Normal 0.0-0.9 [facility] Comment on above: Performed By: #### L [id number] #### Study Manager: RORO LUNDBERG ([id number]) [facility] ([facility]) [address] [place] [address] Monocytes/100 WBC (Bld) 7.4 % Normal 5.0-13.0 [facility] Comment on above: Performed By: #### L [id number] #### Study Manager: RORO LUNDBERG ([id number]) [facility] ([facility]) [address] [place] [address] NEUTROPHILS ABSOLUTE 5.3 10*3/uL Normal 1.8-7.5 [facility] Comment on above: Performed By: #### L [id number] #### Study Manager: RORO LUNDBERG ([id number]) [facility] ([facility]) [address] [place] [address] Neutrophils/100 WBC (Bld) 78.5 % Normal 38.0-82.0 [facility] Comment on above: Performed By: #### L [id number] #### Study Manager: RORO LUNDBERG ([id number]) [facility] ([facility]) [address] [place] [address] NRBC 0.0 /100 WBCs Normal 0.0-2.0 [facility] Comment on above: Performed By: #### L [id number] #### Study Manager: RORO LUNDBERG ([id number]) [facility] ([facility]) [address] [place] [address] Platelet mean volume (Bld) [Entitic vol] 10.1 fL Normal 9.0-12.7 [facility] Comment on above: Performed By: #### L [id number] #### Study Manager: RORO LUNDBERG ([id number]) [facility] ([facility]) [address] [place] [address] Platelets (Bld) [#/Vol] 171 10*3/uL Normal 140-440 [facility] Comment on above: Performed By: #### L [id number] #### Study Manager: RORO LUNDBERG ([id number]) [facility] ([facility]) [address] [place] [address] RBC (Bld) [#/Vol] 3.14 10*6/uL Low 4.40-5.90 [facility] Comment on above: Performed By: #### L [id number] #### Study Manager: RORO LUNDBERG ([id number]) [facility] ([facility]) [address] [place] [address] WBC (Bld) [#/Vol] 6.8 10*3/uL Normal 3.6-10.7 [facility] Comment on above: Performed By: #### L [id number] #### Study Manager: RORO LUNDBERG ([id number]) [facility] ([facility]) [address] [place] [address] COMPREHENSIVE METABOLIC PANE Jose 08-25-2024 Albumin [Mass/Vol] 3.1 g/dL Low 3.5-5.0 [facility] Comment on above: Performed By: #### L [id number], [id number], [id number] ####Study Manager: RORO LUNDBERG ([id number])[facility] ([facility])[address] [place] [address] ALP [Catalytic activity/Vol] 128 U/L Normal 40-150 [facility] Comment on above: Performed By: #### L [id number], [id number], [id number] ####Study Manager: RORO LUNDBERG ([id number])[facility] ([facility])[address] [place] [address] ALT [Catalytic activity/Vol] 63 U/L High <40 [facility] Comment on above: Performed By: #### L [id number], [id number], [id number] ####Study Manager: RORO LUNDBERG ([id number])[facility] ([facility])[address] [place] [address] Anion gap [Moles/Vol] 13 mmol/L Normal 3-13 [facility] Comment on above: Performed By: #### L [id number], [id number], [id number] ####Study Manager: RORO LUNDBERG ([id number])[facility] ([facility])[address] [place] [address] AST [Catalytic activity/Vol] 110 U/L High <34 [facility] Comment on above: Performed By: #### L [id number], [id number], [id number] ####Study Manager: RORO LUNDBERG ([id number])[facility])[address] [place] [address] Bilirubin [Mass/Vol] 0.4 mg/dL Normal <1.2 [facility] Comment on above: Performed By: #### L [id number], [id number], [id number] ####Study Manager: RORO LUNDBERG ([id number])[facility] [place] [address] Calcium [Mass/Vol] 9.5 mg/dL Normal 8.4-10.2 [facility] Comment on above: Performed By: #### L AB17, [id number], [id number] ####Study Manager: RORO LUNDBERG ([id number])[facility] [place] [address] [place] Chloride [Moles/Vol] 98 mmol/L Normal 98-107 [facility] Comment on above: Performed By: #### L AB17, [id number], [id number] ####Study Manager: RORO LUNDBERG ([id number])[facility] ([facility])[address] [place] [address] CO2 [Moles/Vol] 24 mmol/L Normal 22-29 [facility] Comment on above: Performed By: #### L AB17, [id number], [id number] ####Study Manager: RORO LUNDBERG ([id number])[facility] [place] [address] Creatinine [Mass/Vol] 7.05 mg/dL High 0.72-1.25 [facility] Comment on above: Performed By: #### L AB17, [id number], [id number] ####Study Manager: RORO LUNDBERG ([id number])[facility] ([facility])[address] [place] [address] [place] GLOMERULAR FILTRATION RATE ML/MIN/1.73 SQ M.PREDICTED 9.2 mL/min/1.73m*2 Low >60.0 [facility] Comment on above: Result Comment: Calc ulation based on the Chronic Kidney Disease Epidemiology Collaboration (CKD-EPI) equation refit without adjustment for race Performed By: #### L AB17, [id number], [id number] ####Study Manager: RORO LUNDBERG ([id number])[facility] [place] [address] [place] Glucose [Mass/Vol] 128 mg/dL High 74-100 [facility] Comment on above: Performed By: #### L AB17, [id number], [id number] ####Study Manager: RORO LUNDBERG ([id number])[facility])[address] [place] [address] Potassium [Moles/Vol] 3.5 mmol/L Normal 3.5-5.1 [facility] Comment on above: Result Comment: [facility] potassium values may be up to 0.5 mmol/L lower than serum values. Performed By: #### L AB17, [id number], [id number] ####Study Manager: RORO LUNDBERG ([id number])[facility])[address] [place] [address] Protein [Mass/Vol] 6.7 g/dL Normal 6.4-8.3 [facility] Comment on above: Performed By: #### L AB17, [id number], [id number] ####Study Manager: RORO LUNDBERG ([id number])[facility])[address] [place] [address] Sodium [Moles/Vol] 135 mmol/L Low 136-145 [facility] Comment on above: Performed By: #### L AB17, [id number], [id number] ####Study Manager: RORO LUNDBERG ([id number])[facility])[address] [place] [address] Urea nitrogen [Mass/Vol] 43 mg/dL High 8-21 [facility] Comment on above: Performed By: #### L AB17, [id number], [id number] ####Study Manager: RORO LUNDBERG ([id number])[facility])[address] [place] [address] Comprehensive metabolic 1998 panelon 08-25-2024 Albumin [Mass/Vol] 3.1 g/dL Low 3.5 - 5.0 g/dL [facility] ALP [Catalytic activity/Vol] 128 U/L 40 - 150 U/L [facility] ALT [Catalytic activity/Vol] 63 U/L High NINF - 40 U/L [facility] Anion gap [Moles/Vol] 13 mmol/L 3 - 13 mmol/L [facility] AST [Catalytic activity/Vol] 110 U/L High NINF - 34 U/L [facility] Bilirubin [Mass/Vol] 0.4 mg/dL NINF - 1.2 mg/dL [facility] Calcium [Mass/Vol] 9.5 mg/dL 8.4 - 10. 2 mg/dL [facility] Chloride [Moles/Vol] 98 mmol/L 98 - 10 7 mmol/L [facility] CO2 [Moles/Vol] 24 mmol/L 22 - 29 mmol/L [facility] Creatinine [Mass/Vol] 7.05 mg/dL High 0.72 - 1.25 mg/dL [facility] GFR/1.73 sq M.predicted (S/P/Bld) [Vol rate/Area] 9.2 mL/min Low - PINF [facility] Comment on above: Calculation based on the Chronic Kidney Disease Epidemiology Collaboration (CKD-EPI) equation refit without adjustment for race Glucose [Mass/Vol] 128 mg/dL High 74 - 100 mg/dL [facility] Interpretation and review of laboratory results Abnormal [facility] Potassium [Moles/Vol] 3.5 mmol/L 3.5 - 5.1 mmol/L [facility] Comment on above: Plasma potassium willie ues may be up to 0.5 mmol/L lower than serum values. Protein [Mass/Vol] 6.7 g/dL 6.4 - 8.3 g/dL [facility] Sodium [Moles/Vol] 135 mmol/L Low 136 - 145 mmol/L [facility] Urea nitrogen [Mass/Vol] 43 mg/dL High 8 - 21 mg/d L [facility] Consulton 08-25-2024 Consult Attestation signed by [...] T1DM, ESRD on HD via TDC, HTN, [place] s/p stent March 2024 on ASA who presented 08/24/24 from [facility] with concern for sepsis. Fevers, hypotension, tachycardia. MSSA bacteremia presumed due to TDC. He states that he had an MRI at [facility] which showed a hemangioma. He denies abdominal [...] right liver mass - requested MRI from [facility] which reportedly shows liver hemangioma. Asymptomatic. No s (more content not included)... Normal [facility] Culture, Blood (WB)on 2024 CUB Normal [facility] Comment on above: Performed By: #### M 100.636, L300.3900, L500.4050, L300.4310, L503.6005, L100.0100, M200.1000 ####[facility] [id number] [place], [place], [id number] Laboratory - Chemistry and C hemistry - challengeon 08-25-2024 Glucose [Mass/Vol] 349 mg/dL High 70 - 100 mg/dL [facility] Glucose [Mass/Vol] 302 mg/dL High 70 - 100 mg/dL [facility] Glucose [Mass/Vol] 292 mg/dL High 70 - 100 mg/dL [facility] Glucose [Mass/Vol] 276 mg/dL High 70 - 100 mg/dL [facility] Glucose [Mass/Vol] 225 mg/dL High 70 - 100 mg/dL [facility] Magnesium [Mass/Vol] 2.1 mg/dL 1.6 - 2 .6 mg/dL [facility] MAGNESIUMon 08-25-2024 Magnesium [Mass/Vol] 2.1 mg/dL Normal 1.6-2.6 [facility] Comment on above: Result Comment: THEODORA [place] COMMENTS: Higher values can be expected in females during menses. Performed By: #### L [id number], [id number], [id number] ####Study Manager: RORO LUNDBERG ([id number])[facility] ([facility])[address] [place] [address] Magnesium [Mass/Vol]on 08-25 Higher values can be expected in females during menses. [facility] No Panel Informationon 08-25 Interpretation and review of laboratory results Abnormal [facility] Performed by: [address] [address] CLIA ID: [id number] [facility] Interpretation and review of laboratory results Abnormal [facility] Performed by: [facility], [address] [place] [id number] CLIA ID: [id number] [facility] Interpretation and review of laboratory results Abnormal [facility] Performed by: [address] [address] CLIA ID: [id number] [facility] Interpretation and review of laboratory results Abnormal [facility] Performed by: [address] [address] CLIA ID: [id number] [facility] Interpretation and review of laboratory results Abnormal [facility] Performed by: [facility], [address] [place] [address] CLIA ID: [id number] [facility] Interpretation and review of laboratory results Normal [facility] Nursing Noteon 08-25-2024 Nursing Note Patient Name: Farrah Gonzales Patient : 1980 Acct: [id number] Date of Admission: 08/23/2024 Room/Bed: [facility] A Code Status: Full Code Allergies: Allergies[1] [...] 4 Other (Comment) None (Room air) Clear [place] Warm;Dry Soft;Flat Active None None None None Labs Lab Results Component Value Date/Time WBC 6.8 08/25/2024518 HGB 9.6 (L) 08/25/2024518 HCT 28.2 (L) 08/25/2024518 PLT 171 08/25/2024518 NA 135 (L) 08/25/2024518 K 3.5 08/25/2024518 CL 98 08/25/2024518 CO2 24 08/25/2024518 BUN 43 (H) 08/25/2024518 CREATININE 7.05 (H) 08/25/2024518 CALCIUM 9.5 08/25/2024518 PHOS 3.9 08/25/2024518 IV Drips and Rate/Dose Continuous Meds[3] Safety - Before each treatment: Dialysis Machine No.: [id number] RO Machine Number: [id number] Dialyzer Lot No.: [id number] Tubing Lot Number: [id number] [employer] Secure: Yes Venous Parameters Set: Yes Arterial Parameters Set: Yes NS Bag: Yes Saline Line Double Clamped: Yes Dialyzer: Nipro Prime Volume (mL): 200 mL RO Machine Number: [id number] RO Machine Log Sheet Completed: Yes Machine Alarm Self Test: Completed, Passed (1655) (08/25/241655) Air Foam Detector: Tested, Proper Function, pH Reading Extracorporeal Circuit Tested for Integrity: Yes Machine Conductivity: 14.0 Manual Conductivity: 13.8 Manual Ph: 7.4 Bleach Test (Neg): Yes Bath Temperature: 36 ?C (96.8 ?F) Conductivity Meter Serial #: [id number] Machine Functioning Alarm Free? Yes Dialysis Bath: K+ (Potassium): 3 Ca+ (Calcium): 2.5 Na+ (Sodium): 137 HCO3 (Bicarb): 32 Bicarbonate Concentrate Lot No.: [id number] Acid Concentrate Lot No.: [id number] Chlorine Testing - Before each treatment and every 4 hours: Time On: 1707 Time Off: 2325 Treatment Goal: 2000 Weight Height: 180.3 cm [...] (mmHg) TMP DFR Access Visible Intra-Hemodialysis Comments 05/28/25 1707 150 mL/min 500 ml/hr -10 mmHg [...] 80 6 (more content not included)... Normal [facility] Nursing Note Instructed patient to turn off insulin pump per endocrine order last pm. Patient confirmed insulin pump is off. Normal [facility] PHOSPHORUSon 08-25-2024 Phosphate [Mass/Vol] 3.9 mg/dL Normal 2.3-4.7 [facility] Comment on above: Performed By: #### L AB17, [id number], [id number] ####Study Manager: RORO LUNDBERG ([id number])[facility] ([address] Phosphate [Moles/Vol]on 07-30 Phosphate [Mass/Vol] 3.9 mg/dL 2.3 - 4 .7 mg/dL [facility] Progress Noteon 08-25-2024 Progress Note Attestation [...] Gonzales : 1980 AGE: 44 y.o. Room/Bed: [facility]/[address] Admission Date: 08/23/2024 Visit Date: 08/25/2024 Reason for Endocrine Consult: Type 1 diabetes mellitus on insulin pump. Provider/Team Requesting Consult: Brayan Barros PCP: Kristal Sullivan MD Outpt Foreign Policy Officer: Yes . Jace Ko MD at outside [...] insulin pump. Outpt Follow Up-- With outside stave grader. SUBJECTIVE/HPI: CHIEF COMPLAINT: No chief complaint on [...] for the last 3 years, with a [employer] G6 CGM. He uses auto mode on [...] No whee (more content not included)... 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 In ED [...] On: Kcal/kg Weight Used for Energy Requirements: [place] Weight for Energy Calculation (kg): 7 (more content not included)... [facility] Progress Note Attestation with edits by Maria [...] on line holiday 7AM-5PM: contact resident on [facility] Med D (find by hovering over [...] Labs BMP: Recent Labs 08/23/24 1300 08/24/24 0412 08/25/24 0519 NA 134* 135* 135* K 4.4 4.0 3.5 CL 99 101 98 CO2 20* 19* 24 BUN 59* 27* 43* CREATININE 9.57* 5.47* 7.05* CALCIUM 8.8 8.8 9.5 MG -- 1.9 2.1 PHOS -- 2.9 3.9 LFTs: Recent Labs 08/23/24 1300 08/24/24 0308 08/24/24 04108/25/24 0519 AST 22 -- 81* 110* ALT [...] 13.0 ABGs: No results for input(s): PHART, XVG4SCA, PO2ART, RNC1MVK, SO2ART, G3MTBYMD in the last 72 hours. Lactic Acid: [...] in clusters -Drug Screen Neg -ESR, CRP, Pro-Reggie elevated -UA showed protein and glucose in [...] acid r (more content not included)... Normal [facility] RF Guidance for removal of t unneled [...] DR Electronically Signed Date/Time: 08/25/2024 10:14 AM T [facility] [employer] Patient Name: FARRAH GONZALES : 1980 Exam Date/Time: 08/24/2024 17:05 Procedure: IR CVC TUNNELED CATHETER REMOVAL Ordering Provider: HANDLEY CARL Reason For Exam: remove tunneled central line PROCEDURE: Tunneled central venous catheter removal Procedural Personnel Attending physician(s): Keith Jones DR Indication: Catheter no longer needed Additional clinical history: None Complications: No immediate complications. [facility] Kieth Jones MD - 08/25/2024 Patient Name: FARRAH GONZALES : 1980 Exam Date/Time: 08/24/2024 17:05 Procedure: IR CVC TUNNELED CATHETER REMOVAL Ordering Provider: HANDLEY CARL Reason For Exam: remove tunneled central [...] Electronically Signed Date/Time: 08/25/2024 10:14 AM EDT [employer] RF Guidance for removal of t unneled CV catheterOrdered By: Keith Jones on 08-25-2024 [employer] Phone: US Heart TransthoracicOrdere d By: Ludin Ramires on 08-25-2024 Ao Root Index 1.57 cm/m2 [employer] Phone: [phone] Aortic Arch 2.9 cm [employer] Phone: Aortic Root 3.3 cm [employer] Phone: [phone] Aortic valve Mean systole pressure gradient by US.doppler derived full Bernoulli 3 mmHg [employer] Phone: [phone] Aortic valve Orifice area by US 4.2 cm2 [employer] Phone: [phone] Aortic valve Peak systolic flow by US.doppler 0.9 m/s [employer] Phone: [phone] Ascending Aorta 3 cm [facility] Phone: [phone] Ascending Aorta Index 1.43 cm/m2 [facility] [employer] Phone: [phone] AV Area by Peak Velocity 3.6 cm2 [employer] Phone: [phone] AV Area by VTI 3.5 cm2 [facility] Phone: [phone] AV Peak Gradient 6 mmHg [employer] Phone: AV Peak Velocity 1.2 m/s [facility] [employer] Work Phone: AV Velocity Ratio 0.92 [facility] [employer] Work Phone: AV VTI 23.8 cm [facility] [employer] Work Phone: CARLOS/BSA Peak Velocity 1.7 cm2/m2 [facility] Work Phone: CARLOS/BSA VTI 1.7 cm2/m2 [facility] [employer] Work Phone: Fractional Shortening 2D 34 % 28 - 44 % [facility] [employer] Work Phone: Global Longitudinal Strain -10.8 % [facility] [employer] Work Phone: [phone] Interpretation and review of laboratory results Abnormal [facility] [employer] Work Phone: IVC Diameter 1.7 cm [facility] [employer] Work Phone: [phone] IVSd 1.1 cm Abnormal 0.6 - 1.0 cm [facility] [employer] Work Phone: LA Diameter 3.8 cm [facility] [employer] Work Phone: LA Size Index 1.81 cm/m2 [facility] [employer] Work Phone: LA Volume 2C 46 mL 18 - 58 mL [facility] [employer] Work Phone: LA Volume 4C 57 mL 18 - 58 mL [facility] Phone: LA Volume A/L 57 mL [facility] Phone: LA Volume BP 54 mL 18 - 58 mL [facility] [employer] Work Phone: LA Volume Index 2C 22 mL/m2 16 - 34 mL/m2 [facility] [employer] Work Phone: LA Volume Index 4C 27 mL/m2 16 - 34 mL/m2 [facility] [employer] Work Phone: LA Volume Index A/L 27 mL/m2 16 - 34 mL/m2 [facility] [employer] Phone: LA Volume Index BP 26 ml/m2 16 - 34 ml/m2 [facility] Work Phone: LA/AO Root Ratio 1.15 [facility] [employer] Work Phone: Left ventricular Ejection fraction by US.2D+Calculated by biplane method of disks 66 % 55 - 100 % [facility] [employer] Work Phone: LV E' Lateral Velocity 11 cm/s [facility] Work Phone: LV E' Septal Velocity 6 cm/s [facility] Work Phone: LV EDV A2C 71 mL [facility] Work Phone: LV EDV A4C 100 mL [facility] [employer] Work Phone: LV EDV BP 85 mL 67 - 155 mL [facility] [employer] Work Phone: LV EDV Index A2C 34 mL/m2 [facility] [employer] Work Phone: LV EDV Index A4C 48 mL/m2 [facility] [employer] Work Phone: LV EDV Index BP 40 mL/m2 [facility] [employer] Work Phone: LV Ejection Fraction A2C 63 % [facility] [employer] Work Phone: LV Ejection Fraction A4C 68 % [facility] [employer] Work Phone: LV ESV A2C 26 mL [facility] [employer] Work Phone: LV ESV A4C 32 mL [facility] [employer] Work Phone: LV ESV BP 29 mL 22 - 58 mL [facility] [employer] Work Phone: LV ESV Index A2C 12 mL/m2 [facility] [employer] Work Phone: LV ESV Index A4C 15 mL/m2 [facility] [employer] Work Phone: LV ESV Index BP 14 mL/m2 [facility] [employer] Work Phone: LV Mass 2D 153.2 g 88 - 224 g [facility] [employer] Work Phone: LV Mass 2D Index 73 g/m2 49 - 115 g/m2 [facility] [employer] Work Phone: LV RWT Ratio 0.68 [facility] [employer] Work Phone: LVIDd 3.8 cm Abnormal 4.2 - 5.9 cm [facility] Work Phone: LVIDd Index 1.81 cm/m2 [facility] Work Phone: LVIDs 2.5 cm [facility] Work Phone: LVIDs Index 1.19 cm/m2 [facility] Work Phone: LVOT Cardiac Output 19.2 liter/minute [facility] Work Phone: LVOT Diameter 2.3 cm [facility] Work Phone: LVOT Mean Gradient 3 mmHg [facility] Work Phone: LVOT Peak Gradient 5 mmHg [facility] Work Phone: LVOT Peak Velocity 1.1 m/s [facility] [employer] Work Phone: LVOT Stroke Volume Index 41.7 mL/m2 [facility] Work Phone: LVOT SV 87.6 ml [facility] Work Phone: LVOT VTI 21.1 cm [facility] [employer] Work Phone: LVOT:AV VTI Index 0.89 [facility] [employer] Work Phone: LVPWd 1.3 cm Abnormal 0.6 - 1.0 cm [facility] Work Phone: Pulmonary Artery EDP 11 mmHg [facility] Work Phone: PV Max Velocity 0.9 m/s [facility] Work Phone: PV Mean Gradient 2 mmHg [facility] Work Phone: PV Mean Velocity 0.6 m/s [facility] Work Phone: PV Peak Gradient 3 mmHg [facility] Work Phone: RA Area 4C 34.3 mL [facility] Work Phone: RA Area 4C 32.6 mL [facility] Work Phone: RV Basal Dimension 2.9 cm [facility] Work Phone: RV Free Wall Peak S' 14 cm/s [facility] Work Phone: RV Longitudinal Dimension 7.4 cm [facility] Phone: [phone] RV Mid Dimension 2.4 cm [facility] [employer] Phone: [phone] RVOT Mean Gradient 1 mmHg [facility] [employer] Phone: RVOT Peak Gradient 2 mmHg [facility] [employer] Phone: [phone] RVOT Peak Velocity 0.8 m/s [facility] [employer] Phone: [phone] RVOT VTI 14.9 cm [facility] [employer] Phone: Sinotubular Junction 2.3 cm [facility] [employer] Work Phone: TAPSE 2.4 cm 1.7 cm [facility] [employer] Phone: [phone] [facility] [employer] Phone: [phone] Heart Transthoracicon Left Ventricle: Left ventricle size [...] Cultureon 08-25-2024 [facility] Mixed Gram Positive Organisms [place] Count 25,000-50,000 MIXC Mixed contaminants. Submit a new specimen if indicated. Normal [facility] Comment on above: Performed By: #### M 100.678, L400.0001, M100.2200 ####[facility] [id number] [place], [address] [id number] 08-24-2024 [id number] Pt adm for tx/ eval of sepsis- transfer from [facility] ER. HD- MWF. IV zosyn/ vanc continued. Respiratory culture positive. BC positive. XR chest/ CT abd pelvis completed. Echo pending. Per nursing pt is vomiting today. GI/ID consulted. Anticipate discharge home. Possible intermediate manager abx. Normal [facility] [facility] Bacteria identified Aer cx N om (Lower resp)on 08-24-2024 Gram Stain Result Many Epithelial cells per low power field Abnormal [employer] Gram Stain Result Few Polymorphonuclear leukocytes per low power field Abnormal [employer] Gram Stain Result Positive Abnormal [employer] Gram Stain Result Negative Abnormal [employer] Gram Stain Result Smear contains >= 15 squamous cells per low power field, suggestive of poor quality. Culture not performed. Please re-collect if clinically indicated. Abnormal [employer] Interpretation and review of laboratory results Abnormal [employer] CBC W Auto Differential pane l (Bld)Ordered By: Venkata Lopes on 08-24-2024 Basophils (Bld) [#/Vol] 0 10*3/uL 0.0 - 0.2 10*3/uL [employer] Basophils/100 WBC (Bld) 0.4 % 0.0 - 2.0 % [employer] Eosinophils (Bld) [#/Vol] 0 10*3/uL 0. 0 - 0.5 10*3/uL [employer] Eosinophils/100 WBC (Bld) 0.1 % 0.0 - 6.0 % [employer] Erythrocyte distribution width (RBC) [Ratio] 13 % 11.5 - 15.0 % [facility] Hematocrit (Bld) [Volume fraction] 28.3 % Low 40.0 - 52.0 % [facility] Hemoglobin (Bld) [Mass/Vol] 9.6 g/dL Low 13.0 - 18.0 g/dL [facility] [employer] Immature granulocytes (Bld) [#/Vol] 0.1 10*3/uL High NINF - 0.1 10*3/uL [facility] Immature granulocytes/100 WBC (Bld) 0.9 % 0.0 - 2.0 % [facility] Interpretation and review of laboratory results Abnormal [facility] Lymphocytes (Bld) [#/Vol] 0.4 10*3/uL Low 1. 0 - 4.3 10*3/uL [facility] Lymphocytes/100 WBC (Bld) 3.7 % Low 15 .0 - 45.0 % [facility] MCH (RBC) [Entitic mass] 30.5 pg 26. 0 - 34.0 pg [facility] MCHC (RBC) [Mass/Vol] 33.9 % 30.5 - 36.0 % [facility] MCV (RBC) [Entitic vol] 89.8 fL 77.0 - 99.0 fL [facility] [employer] Monocytes (Bld) [#/Vol] 0.7 10*3/uL 0.0 - 0.9 10*3/uL [facility] Monocytes/100 WBC (Bld) 6.9 % 5.0 - 13.0 % [facility] Neutrophils (Bld) [#/Vol] 9.4 10*3/uL High 1. 8 - 7.5 10*3/uL [facility] Neutrophils/100 WBC (Bld) 88 % High 38 .0 - 82.0 % [facility] Nucleated RBC/100 WBC (Bld) [Ratio] 0 % [facility] [employer] Platelet mean volume (Bld) [Entitic vol] 9.8 fL 9.0 - 12.7 fL [facility] [employer] Platelets (Bld) [#/Vol] 153 10*3/uL 140 - 440 10*3/uL [facility] RBC (Bld) [#/Vol] 3.15 10*6/uL Low 4.40 - 5.9 0 10*6/uL [facility] WBC (Bld) [#/Vol] 10.7 10*3/uL 3.6 - 10.7 10*3/uL [facility] CBC WITH AUTO DIFFERENTIALon 08-24-2024 Basophils (Bld) [#/Vol] 0.0 10*3/uL Normal 0.0-0.2 [facility] Comment on above: Performed By: #### L [id number] ####Study Manager: RORO LUNDBERG ([id number])[facility])[address] [place] [address] Basophils/100 WBC (Bld) 0.4 % Normal 0.0-2.0 [facility] Comment on above: Performed By: #### L [id number] ####Study Manager: RORO LUNDBERG ([id number])[facility])[address] [place] [address] Eosinophils (Bld) [#/Vol] 0.0 10*3/uL Normal 0.0-0.5 [facility] Comment on above: Performed By: #### L [id number] ####Study Manager: RORO LUNDBERG ([id number])[facility])[address] [place] [address] Eosinophils/100 WBC (Bld) 0.1 % Normal 0.0-6.0 [facility] Comment on above: Performed By: #### L [id number] ####Study Manager: RORO LUNDBERG ([phone])[facility])[address] [place] [address] Erythrocyte distribution width (RBC) [Ratio] 13.0 % Normal 11.5-15.0 [facility] Comment on above: Performed By: #### L [id number] ####Study Manager: RORO LUNDBERG ([id number])[facility])[address] [place] [address] Hematocrit (Bld) [Volume fraction] 28.3 % Low 40.0-52.0 [facility] Comment on above: Performed By: #### L [id number] ####Study Manager: RORO LUNDBERG ([id number])[facility])[address] [place] [address] Hemoglobin (Bld) [Mass/Vol] 9.6 g/dL Low 13.0-18. 0 [facility] Comment on above: Performed By: #### L [id number] ####Study Manager: RORO LUNDBERG ([phone])[facility])[address] [place] [address] IMMATURE GRANS % 0.9 % Normal 0.0-2.0 [facility] Comment on above: Performed By: #### L [id number] ####Study Manager: RORO LUNDBERG ([id number])[facility])[address] [place] [address] IMMATURE GRANS ABSOLUTE 0.1 10*3/uL High <0.1 [facility] Comment on above: Performed By: #### L [id number] ####Study Manager: RORO LUNDBERG ([id number])[facility])[address] [place] [address] Lymphocytes (Bld) [#/Vol] 0.4 10*3/uL Low 1.0-4.3 [facility] Comment on above: Performed By: #### L [id number] ####Study Manager: RORO LUNDBERG ([phone])[facility])[address] [place] [address] Lymphocytes/100 WBC (Bld) 3.7 % Low 15.0-45.0 [facility] Comment on above: Performed By: #### L [id number] ####Study Manager: RORO LUNDBERG ([id number])[facility])[address] [place] [address] MCH (RBC) [Entitic mass] 30.5 pg Normal 26.0-34.0 [facility] Comment on above: Performed By: #### L [id number] ####Study Manager: RORO LUNDBERG ([id number])[facility])[address] [place] [address] MCHC 33.9 % Normal 30.5-36.0 [facility] Comment on above: Performed By: #### L [id number] ####Study Manager: RORO LUNDBERG ([id number])[facility])[address] [place] [address] MCV (RBC) [Entitic vol] 89.8 fL Normal 77.0-99.0 S [facility] Comment on above: Performed By: #### L [id number] ####Study Manager: RORO LUNDBERG ([id number])[facility] ([facility])[address] [place] [address] Monocytes (Bld) [#/Vol] 0.7 10*3/uL Normal 0.0-0.9 [facility] Comment on above: Performed By: #### L [id number] ####Study Manager: RORO LUNDBERG ([id number])[facility] ([facility])[address] [place] [address] Monocytes/100 WBC (Bld) 6.9 % Normal 5.0-13.0 S [facility] Comment on above: Performed By: #### L [id number] ####Study Manager: RORO LUNDBERG ([phone])[facility] ([facility])[address] [place] [address] NEUTROPHILS ABSOLUTE 9.4 10*3/uL High 1.8-7.5 [facility] Comment on above: Performed By: #### L [id number] ####Study Manager: RORO LUNDBERG ([phone])[facility] ([facility])[address] [place] [address] Neutrophils/100 WBC (Bld) 88.0 % High 38.0-82.0 [facility] Comment on above: Performed By: #### L [id number] ####Study Manager: RORO LUNDBERG ([phone])[facility])[address] [place] [address] NRBC 0.0 /100 WBCs Normal 0.0-2.0 [facility] Comment on above: Performed By: #### L [id number] ####Study Manager: RORO LUNDBERG ([id number])[facility])[address] [place] [address] Platelet mean volume (Bld) [Entitic vol] 9.8 fL Normal 9.0-12.7 [facility] Comment on above: Performed By: #### L [id number] ####Study Manager: RORO LUNDBERG ([phone])[facility])[address] [place] [address] Platelets (Bld) [#/Vol] 153 10*3/uL Normal 140-440 [facility] Comment on above: Performed By: #### L [id number] ####Study Manager: RORO LUNDBERG ([id number])[facility] ([facility])[address] [place] [address] RBC (Bld) [#/Vol] 3.15 10*6/uL Low 4.40-5.90 [facility] Comment on above: Performed By: #### L [id number] ####Study Manager: RORO LUNDBERG ([phone])[facility])[address] [place] [address] WBC (Bld) [#/Vol] 10.7 10*3/uL Normal 3.6-10.7 [facility] Comment on above: Performed By: #### L [id number] ####Study Manager: RORO LUNDBERG ([id number])[facility])[address] [place] [address] COMPLETE URINALYSIS WITH REF CESAR TO CULTUREon 08-24-2024 BACTERIA (#/HPF) IN URINE Negative Normal Negative [facility] Comment on above: Performed By: #### L [id number] ####Study Manager: RORO LUNDBERG ([id number])[facility])[address] [place] [address] BILIRUBIN, TOTAL PRESENCE IN URINE Negative Normal Negative [facility] Comment on above: Performed By: #### L [id number] ####Study Manager: RORO LUNDBERG ([id number])[facility] ([facility])[address] [place] [address] Clarity (U) Clear Normal Clear [facility] Comment on above: Performed By: #### L [id number] ####Study Manager: RORO LUNDBERG ([id number])[facility] [place] [address] Color (U) Colorless Normal Lt. Yellow [facility] Comment on above: Performed By: #### L [id number] ####Study Manager: RORO LUNDBERG ([phone])[facility] ([facility])[address] [place] [address] GLUCOSE (MG/DL) IN URINE 1,000 mg/dL Abnormal Normal (<7 0) [facility] Comment on above: Performed By: #### L [id number] ####Study Manager: RORO LUNDBERG ([id number])[facility] ([facility])[address] [place] [address] HEMOGLOBIN PRESENCE IN URINE 0.06 mg/dL Abnormal Negative [facility] Comment on above: Performed By: #### L [id number] ####Study Manager: RORO LUNDBERG ([id number])[facility] ([facility])[address] [place] [address] HYALINE CASTS (#/LPF) IN URINE SEDIMENT BY MICROSCOPY Negative Normal Negative [facility] Comment on above: Performed By: #### L [id number] ####Study Manager: RORO LUNDBERG ([id number])[facility] ([facility])[address] [place] [address] Ketones Ql (U) Trace Abnormal Negative [facility] Comment on above: Performed By: #### L [id number] ####Study Manager: RORO LUNDBERG ([id number])[facility] ([facility])[address] [place] [address] LEUKOCYTE ESTERASE PRESENCE IN URINE BY TEST STRIP Negative Normal Negative [facility] Comment on above: Performed By: #### L [id number] ####Study Manager: RORO LUNDBERG ([id number])[facility] [place] [address] NITRITE PRESENCE IN URINE Negative Normal Negative [facility] Comment on above: Performed By: #### L [id number] ####Study Manager: RORO LUNDBERG ([id number])[facility] ([facility])[address] [place] [address] pH (U) 7.5 [pH] Normal 5.0-8.0 [facility] Comment on above: Performed By: #### L [id number] ####Study Manager: RORO LUNDBERG ([id number])[facility] ([facility])[address] [place] [address] Protein (U) [Mass/Vol] 200 mg/dL Abnormal Negative [facility] Comment on above: Performed By: #### L [id number] ####Study Manager: RORO LUNDBERG ([phone])[facility] ([facility])[address] [place] [address] [place] RBC (#/HPF) IN URINE SEDIMENT 0-2 Normal 0-2 [facility] Comment on above: Performed By: #### L [id number] ####Study Manager: RORO LUNDBERG ([id number])[facility])[address] [place] [address] Specific gravity (U) [Rel density] 1.018 Normal 1.005-1.030 [facility] Comment on above: Result Comment: THEODORA [place] COMMENTS: A specimen with <=10 WBC is not consistent with inflammation. This specimen will not reflex to a urine culture. Performed By: #### L [id number] ####Study Manager: RORO LUNDBERG ([id number])[facility] ([facility])[address] [place] [address] SQUAMOUS EPITHELIAL CELLS (#/HPF) IN URINE SEDIMENT Negative Normal 3-5 [facility] Comment on above: Performed By: #### L [id number] ####Study Manager: RORO LUNDBERG ([phone])[facility] ([facility])[address] [place] [address] UROBILINOGEN (MG/DL) IN URINE Normal Normal Normal (0-1) [facility] Comment on above: Performed By: #### L [id number] ####Study Manager: RORO LUNDBERG ([id number])[facility] ([facility])[address] [place] [address] WBC (LEUKOCYTE) (#/HPF) IN URINE SEDIMENT 0-2 Normal 0-5 [facility] Comment on above: Performed By: #### L [id number] ####Study Manager: RORO LUNDBERG ([phone])[facility] ([facility])[address] [place] [address] COMPREHENSIVE METABOLIC PANE Jose 08-24-2024 Albumin [Mass/Vol] 2.9 g/dL Low 3.5-5.0 [facility] Comment on above: Performed By: #### L [id number], LAB17, [id number], [id number] ####Study Manager: RORO LUNDBERG ([phone])[facility] ([facility])[address] [place] [address] ALP [Catalytic activity/Vol] 80 U/L Normal 40-150 [facility] Comment on above: Performed By: #### L AB99, LAB17, [id number], [id number] ####Study Manager: RORO LUNDBREG ([id number])[facility] ([facility])[address] [place] [address] ALT [Catalytic activity/Vol] 37 U/L Normal <40 [facility] Comment on above: Performed By: #### L AB99, LAB17, [id number], [id number] ####Study Manager: RORO LUNDBERG ([id number])[facility] ([facility])[address] [place] [address] Anion gap [Moles/Vol] 15 mmol/L High 3-13 [facility] Comment on above: Performed By: #### L AB99, LAB17, [id number], [id number] ####Study Manager: RORO LUNDBERG ([phone])[facility] ([facility])[address] [place] [address] AST [Catalytic activity/Vol] 81 U/L High <34 [facility] Comment on above: Result Comment: TC Potential interference from hemolysis Performed By: #### L AB99, LAB17, [id number], [id number] ####Study Manager: RORO LUNDBERG ([id number])[facility] [place] [address] Bilirubin [Mass/Vol] 0.5 mg/dL Normal <1.2 [facility] Comment on above: Performed By: #### L AB99, LAB17, [id number], [id number] ####Study Manager: RORO LUNDBERG ([id number])[facility] ([facility])[address] [place] [address] Calcium [Mass/Vol] 8.8 mg/dL Normal 8.4-10.2 [facility] Comment on above: Performed By: #### L AB99, LAB17, [id number], [id number] ####Study Manager: RORO LUNDBERG ([phone])[facility] ([facility])[address] [place] [address] Chloride [Moles/Vol] 101 mmol/L Normal 98-107 [facility] Comment on above: Performed By: #### L AB99, LAB17, [id number], [id number] ####Study Manager: RORO LUNDBERG ([phone])[facility] [place] [address] CO2 [Moles/Vol] 19 mmol/L Low 22-29 [facility] Comment on above: Performed By: #### L AB99, LAB17, [id number], [id number] ####Study Manager: RORO LUNDBERG ([phone])[facility] ([facility])[address] [place] [address] Creatinine [Mass/Vol] 5.47 mg/dL High 0.72-1.25 [facility] Comment on above: Performed By: #### L AB99, LAB17, [id number], [id number] ####Study Manager: RORO LUNDBERG ([id number])[facility] ([facility])[address] [place] [address] [place] GLOMERULAR FILTRATION RATE ML/MIN/1.73 SQ M.PREDICTED 12.5 mL/min/1.73m*2 Low >60.0 S [facility] Comment on above: Result Comment: Calc ulation based on the Chronic Kidney Disease Epidemiology Collaboration (CKD-EPI) equation refit without adjustment for race Performed By: #### L AB99, LAB17, [id number], [id number] ####Study Manager: RORO LUNDBERG ([phone])[facility])[address] [place] [address] Glucose [Mass/Vol] 140 mg/dL High 74-100 [facility] Comment on above: Performed By: #### L AB99, LAB17, [id number], [id number] ####Study Manager: RORO LUNDBERG ([phone])[facility])[address] [place] [address] Potassium [Moles/Vol] 4.0 mmol/L Normal 3.5-5.1 [facility] Comment on above: Result Comment: [facility] potassium values may be up to 0.5 mmol/L lower than serum values. Performed By: #### L AB99, LAB17, [id number], [id number] ####Study Manager: RORO LUNDBERG ([id number])[facility])[address] [place] [address] Protein [Mass/Vol] 6.2 g/dL Low 6.4-8.3 [facility] Comment on above: Performed By: #### L AB99, LAB17, [id number], [id number] ####Study Manager: RORO LUNDBERG ([id number])[facility] ([facility])[address] [place] [address] [place] Sodium [Moles/Vol] 135 mmol/L Low 136-145 [facility] Comment on above: Performed By: #### L AB99, LAB17, [id number], [id number] ####Study Manager: RORO LUNDBERG ([id number])[facility])[address] [place] [address] [place] Urea nitrogen [Mass/Vol] 27 mg/dL High 8-21 [facility] Comment on above: Performed By: #### L AB99, LAB17, [id number], [id number] ####Study Manager: RORO LUNDBERG ([id number])[facility] ([facility] Comprehensive metabolic 1998 panelOrdered By: Brenda Gleason on 08-24-2024 Albumin [Mass/Vol] 2.9 g/dL Low 3.5 - 5.0 g/dL [facility] ALP [Catalytic activity/Vol] 80 U/L 40 - 150 U/L [facility] ALT [Catalytic activity/Vol] 37 U/L NINF - 40 U/L [facility] Anion gap [Moles/Vol] 15 mmol/L High 3 - 13 mmol/L [facility] AST [Catalytic activity/Vol] 81 U[facility] Comment on above: TC Potential interference from hemolysis Bilirubin [Mass/Vol] 0.5 mg/dL NINF - 1.2 mg/dL [facility] Calcium [Mass/Vol] 8.8 mg/dL 8.4 - 10. 2 mg/dL [facility] Chloride [Moles/Vol] 101 mmol/L 98 - 10 7 mmol/L [facility] CO2 [Moles/Vol] 19 mmol/L Low 22 - 29 mmol/L [facility] Creatinine [Mass/Vol] 5.47 mg/dL High 0.72 - 1.25 mg/dL [facility] GFR/1.73 sq M.predicted (S/P/Bld) [Vol rate/Area] 12.5 mL/min Low - PINF [facility] Comment on above: Calculation based on the Chronic Kidney Disease Epidemiology Collaboration (CKD-EPI) equation refit without adjustment for race Glucose [Mass/Vol] 140 mg/dL High 74 - 100 mg/dL [facility] Interpretation and review of laboratory results Abnormal [facility] Potassium [Moles/Vol] 4 mmol/L 3.5 - 5.1 mmol/L [facility] Comment on above: Plasma potassium willie ues may be up to 0.5 mmol/L lower than serum values. Protein [Mass/Vol] 6.2 g/dL Low 6.4 - 8.3 g/dL [facility] Sodium [Moles/Vol] 135 mmol/L Low 136 - 145 mmol/L [facility] Urea nitrogen [Mass/Vol] 27 mg/dL High 8 - 21 mg/d L [facility] Consulton 08-24-2024 Consult Department of Internal [...] HTN who presents as a transfer from [facility] with sepsis (T 103, BP 93/78. [...] Resource Strain: Low Risk (07/02/2022) Received from [facility] Overall Financial Resource Strain (CARDIA) Difficulty of Paying Living Expenses: Not hard at all Food Insecurity: No Food Insecurity (07/02/2022) Received from [facility] Hunger Vital Sign Worried About Running Out of Food in the Last Year: Never true Ran Out of Food in the Last Year: Never true Transportation Needs: No Transportation Needs (07/02/2022) Received from [facility] PRAPARE - Transportation Lack of Transportation (Medical): No Lack of Transportation (Non-Medical): No Physical Activity: Inactive (07/02/2022) Received from [facility] Exercise Vital Sign Days of Exercise per Week: 0 days Minutes of Exercise per Session: 0 min Stress: No Stress Concern Present (07/02/2022) Received from [facility] [place] [employer] - Occupational Stress Questionnaire Feeling of Stress : Not at all Social Connections: Socially Integrated (07/02/2022) Received from [facility] Social Connection and Isolation Panel [NHANES] Frequency of Communication with Friends and Family: More than three times a week Frequency of Social Gatherings with Friends and Family: More than three times a week Attends Hinduism Services: More than 4 times per year Active Member of Clubs or Organizations: Yes Attends Club or Organization Meetings: More than 4 times per year Marital Status: Living with partner Intimate Partner Violence: Not on file Housing Stability: Low Risk (07/02/2022) Received from [facility] Housing Stability Vital Sign Unable to Pay [...] supple Psychi (more content not included)... Normal [facility] Consult [facility] - Infectious Diseases Advanced Practice Provider Consult Note Reason for Consult: MSSA bacteremia History of Present Illness: 44 yo male with PMHx significant for T1DM, ESRD via TDC, and HTN who presents 08/23 from [facility] with fever, hypotension, tachycardia concerning for [...] 10.7, lactic acid 1.5, procal 5.94, BNP 36718. CXR negative. CT chest/abd/pelvis performed and without infiltrates, masses, pleural effusions; shows R TDC in place and a large heterogenous 7.7cm R lobe liver mass. 08/23 Blood Cx collected 2/ GPC (MSSA detected). Resp PCR panel and [...] Resource Strain: Low Risk (07/02/2022) Received from [facility] Overall Financial Resource Strain (CARDIA) Difficulty of Paying Living Expenses: Not hard at all Food Insecurity: No Food Insecurity (07/02/2022) Received from [facility] Hunger Vital Sign Worried About Running Out of Food in the Last Year: Never true Ran Out of Food in the Last Year: Never true Transportation Needs: No Transportation Needs (07/02/2022) Received from [facility] PRAPARE - Transportation Lack of Transportation (Medical): No Lack of Transportation (Non-Medical): No Physical Activity: Inactive (07/02/2022) Received from [facility] Exercise Vital Sign Days of Exercise per Week: 0 days Minutes of Exercise per Session: 0 min Stress: No Stress Concern Present (07/02/2022) Received from [facility] [place] [employer] - Occupational Stress Questionnaire Feeling of Stress : Not at all Social Connections: Socially Integrated (07/02/2022) Received from [facility] Social Connection and Isolation Panel [NHANES] Frequency of Communication with Friends and Family: More than three times a week Frequency of Social Gatherings with Friends and Family: More than three times a week Attends Hinduism Services: More than 4 times per year Active Member of Clubs or Organizations: Yes Attends Club or Organization Meetings: More than 4 times per year Marital Status: Living with partner Intimate Partner Violence: Not on file Housing Stability: Low Risk (07/02/2022) Received from [facility] Housing Stability Vital Sign Unable to Pay [...] - (more content not included)... Normal [facility] DRUGS OF ABUSEon 08-24-2024 AMPHETAMINE SCREEN Negative Normal [facility] Comment on above: Performed By: #### L [id number] #### Study Manager: RORO LUNDBERG ([phone]) [facility]) [address] [place] [address] BARBITURATES SCREEN Negative Normal [facility] Comment on above: Performed By: #### L [id number] #### Study Manager: RORO LUNDBERG ([id number]) [facility]) [address] [place] [address] BENZODIAZEPINE SCREEN Negative Normal [facility] Comment on above: Performed By: #### L [id number] #### Study Manager: RORO LUNDBERG ([phone]) [facility]) [address] [place] [address] COCAINE METAB. SCREEN Negative Normal [facility] Comment on above: Performed By: #### L [id number] #### Study Manager: RORO LUNDBERG ([phone]) [facility]) [address] [place] [address] [place] FENTANYL SCREEN, UR QUAL Negative Normal [facility] Comment on above: Result Comment: ORDE R COMMENTS: The expected value for all of [...] order. Performed By: #### L [id number] #### Study Manager: RORO LUNDBERG ([phone]) [facility]) [address] [place] [address] METHADONE SCREEN Negative Normal [facility] Comment on above: Performed By: #### L [id number] #### Study Manager: RORO LUNDBERG ([id number]) [facility]) [address] [place] [address] OPIATES SCREEN Negative Normal [facility] Comment on above: Performed By: #### L [id number] #### Study Manager: RORO LUNDBERG ([phone]) [facility]) [address] [place] [address] OXYCODONE SCREEN Negative Normal [facility] Comment on above: Performed By: #### L [id number] #### Study Manager: RORO LUNDBERG ([phone]) [facility]) [address] [place] [address] PHENCYCLIDINE SCREEN Negative Normal [facility] Comment on above: Performed By: #### L [id number] #### Study Manager: RORO LUNDBERG ([phone]) [address] ECG 12-LEADon 08-24-2024 ECG 12-LEAD IMPRESSION: Sinus tachycardia Consider anterior infarct Nonspecific T abnormalities, lateral leads No previous ECG available for comparison Electronically Signed On 08-24-2024 16:44:35 EDT by Erick Kirkland [facility] ECG 12-LEAD IMPRESSION: Sinus tachycardia Nonspecific T abnormalities, lateral leads Electronically Signed On 08-24-2024 16:43:02 EDT by Erick Navarrojillian [facility] LEGIONELLA AND STREPTOCOCCUS URINE ANTIGENon 08-24-2024 LEGIONELLA AND STREPTOCOCCUS URINE ANTIGEN LEGIONELLA PNEUMOPHILA URINE ANTIGEN Reference Not Detected Not Detected STREPTOCOCCUS PNEUMONIAE URINE ANTIGEN Reference Not Detected Not Detected ORDER COMMENTS: Methodology: Lateral flow enzyme immunoassay This assay is approved for detection of antigens to Streptococcus pneumoniae and Legionella pneumophila serogroup 1; however, other L. pneumophila serogroups may also be detected. [facility] Comment on above: Performed By: #### L [id number] ####Study Manager: RORO LUNDBERG ([phone])[facility] ([facility] [place] [address] LIPASEon 08-24-2024 Lipase [Catalytic activity/Vol] 78 U/L High <55 [facility] Comment on above: Performed By: #### L AB99, LAB17, [id number], [id number] ####Study Manager: RORO LUNDBERG ([phone])[facility] ([facility] [employer])[address] [place] [address] Laboratory - Chemistry and C hemistry - challengeon 08-24-2024 Glucose [Mass/Vol] 350 mg/dL High 70 - 100 mg/dL [facility] Glucose [Mass/Vol] 405 mg/dL High 70 - 100 mg/dL [facility] Glucose [Mass/Vol] 355 mg/dL High 70 - 100 mg/dL [facility] Lipase [Catalytic activity/Vol] 78 U/L High NINF - 55 U/L [facility] Magnesium [Mass/Vol] 1.9 mg/dL 1.6 - 2 .6 mg/dL [facility] Laboratory - Drug toxicology on 08-24-2024 Amphetamines Screen method >1000 ng/mL Ql (U) Negative [facility] Barbiturates Screen method >200 ng/mL Ql (U) Negative [facility] Benzodiazepines Ql (U) Negative [facility] Methadone Screen Ql (U) Negative [facility] Opiates Screen Ql (U) Negative [facility] oxyCODONE Ql (U) Negative [facility] Phencyclidine Ql (U) Negative [facility] Laboratory - Microbiology an d Antimicrobial susceptibilityon 08-24-2024 Bacteria identified Aer cx Nom (Lower resp) Culture canceled due to poor specimen quality. Recollect if clinically indicated. [facility] Lipase [Catalytic activity/V ol]on 08-24-2024 Interpretation and review of laboratory results Abnormal [facility] MAGNESIUMon 08-24-2024 Magnesium [Mass/Vol] 1.9 mg/dL Normal 1.6-2.6 [facility] Comment on above: Result Comment: THEODORA [place] COMMENTS: Higher values can be expected in females during menses. Performed By: #### L AB99, LAB17, GRP294, [id number] ####Study Manager: RORO LUNDBERG ([phone])[facility] ([facility])[address] [place] [address] Magnesium [Mass/Vol]on 08-24 Higher values can be expected in females during menses. [facility] No Panel Informationon 08-24 Interpretation and review of laboratory results Abnormal [facility] Performed by: [facility], [address] [place] [address] CLIA ID: [id number] [facility] Interpretation and review of laboratory results Abnormal [facility] Performed by: [facility], [address] [place] [id number] CLIA ID: [id number] [facility] Interpretation and review of laboratory results Abnormal [facility] Performed by: [facility], [address] [place] [address] CLIA ID: [id number] [facility] Sinus tachycardia Consider anterior infarct Nonspecific T abnormalities, lateral leads No previous ECG available for comparison Electronically Signed On 08-24-2024 16:44:35 EDT by Erick Kirkland CV Erick Decker MD - 08/24/2024 IMPRESSION: Sinus tachycardia Consider anterior infarct Nonspecific T abnormalities, lateral leads No previous ECG available for comparison Electronically Signed On 08-24-2024 16:44:35 EDT by Erick Kirkland [facility] P [place] 28 degrees [facility] MA Interval 154 ms [facility] QRS [place] 61 degrees [facility] QRSD Interval 84 ms [facility] QT Interval 356 ms [facility] QTC Interval 466 ms [facility] T Wave [place] 101 degrees [facility] [employer] Sinus tachycardia Nonspecific T abnormalities, lateral leads Electronically Signed On 08-24-2024 16:43:02 EDT by Erick Kirkland CV Erick Decker MD - 08/24/2024 IMPRESSION: Sinus tachycardia Nonspecific T abnormalities, lateral leads Electronically Signed On 08-24-2024 16:43:02 EDT by Erick Kirkland [facility] Interpretation and review of laboratory results Normal [facility] Legionella pneumophila Ag Not detected Not Dete cted [facility] Streptococcus pneumoniae Ag Not detected Not De tected [facility] Methodology: Lateral flow enzyme immunoassay This assay is approved for detection of antigens to Streptococcus pneumoniae and Legionella pneumophila serogroup 1; however, other L. pneumophila serogroups may also be detected. [facility] Extra Tube Hold for add-ons. [facility] Comment on above: Auto resulted. [facility] Interpretation and review of laboratory results Normal [facility] COCAINE METAB. SCREEN Negative [facility] FENTANYL SCREEN, UR QUAL Negative [facility] The expected value for all of [...] is needed, request confirmation under separate order. [facility] [employer] No Panel InformationOrdered By: Erick Kirkland on 08-24-2024 P [place] 41 degrees [employer] Work Phone: MA Interval 152 ms [employer] Work Phone: QRS [place] 65 degrees [employer] Work Phone: QRSD Interval 81 ms [employer] Work Phone: QT Interval 323 ms [employer] Work Phone: QTC Interval 457 ms [facility] Work Phone: T Wave [place] 95 degrees [employer] Phone: [employer] Work Phone: No Panel InformationOrdered By: Huseyin Garcia on 08-24-2024 Interpretation and review of laboratory results Abnormal [facility] mecA/C and MREJ (MRSA) Not detected Not Detecte d [facility] [employer] Staphylococcus aureus Detected Abnormal Not Detected S [facility] Methodology: Multiplex PCR The [employer] panel can detect the following organisms: E. [...] IMP, KPC, NDM, OXA-48-like, VIM, and mcr-1. [facility] Nursing Noteon 08-24-2024 Nursing Note CGM 344 Normal [facility] Nursing Note Central Line Removal Note Line [...] for the duration of the procedure. Normal [facility] Nursing Note CGM reading is 199 Normal [facility] Nursing Note Patients CGM reading 207 Normal [facility] PHOSPHORUSon 08-24-2024 Phosphate [Mass/Vol] 2.9 mg/dL Normal 2.3-4.7 [facility] Comment on above: Performed By: #### L AB99, LAB17, OLI950, ONG589 ####Study Manager: RORO LUNDBERG ([id number])[address] Phosphate [Moles/Vol]on 07-30 Phosphate [Mass/Vol] 2.9 mg/dL 2.3 - 4 .7 mg/dL [facility] Progress Noteon 08-24-2024 Progress Note Attestation [...] Gonzales : 1980 AGE: 44 y.o. Room/Bed: [facility]/[address] Admission Date: 08/23/2024 Visit Date: 08/24/2024 Reason for Endocrine Consult: Type 1 diabetes mellitus on insulin pump. Provider/Team Requesting Consult: Brayan Barros PCP: Kristal Sullivan MD Outpt Foreign Policy Officer: Yes . Jace Ko MD at outside [...] insulin pump. Outpt Follow Up-- With outside stave grader. SUBJECTIVE/HPI: CHIEF COMPLAINT: No chief complaint on [...] for the last 3 years, with a [employer] G6 CGM. He uses auto mode on [...] filed at (more content not included)... Normal [facility] Progress Note Vancomycin therapy has been discontinued by Dr. [facility] on 08/24/24. Thank you for the consult. Pharmacy signing off for vancomycin dosing. Jennifer Herrera PharmD Date: 08/24/24 Time: 7:38 AM Normal [facility] RESPIRATORY CULTURE AND STAI Non 08-24-2024 RESPIRATORY [...] Non-susceptible NO = No Interpretation ] Normal [facility] Comment on above: Performed By: #### L AB900 ####Study Manager: RORO LUNDBERG ([id number])[facility] ([address] RF Guidance for removal of t unneled CV catheteron 08-24-2024 Radiology Study observation (narrative) [facility] Urinalysis complete panel (U )Ordered By: Lamin Johansen on 08-24-2024 Bacteria LM.HPF (Urine sed) [#/Area] Negative Negative /HPF [facility] Bilirubin Ql (U) Negative Negative mg/dL [facility] Clarity (U) Clear Clear [facility] Color (U) Colorless Lt. Yellow [facility] Epithelial cells.squamous LM.HPF (Urine sed) [#/Area] Negative [facility] Glucose Ql (U) 1,000 Abnormal Normal (<70) mg/dL [facility] Hemoglobin Ql (U) 0.06 mg/dL Abnormal Negative [facility] Hyaline casts Auto (Urine sed) [#/Area] Negative Negative /LPF [facility] Interpretation and review of laboratory results Abnormal [facility] Ketones (U) [Mass/Vol] Trace Abnormal Negat pedro mg/dL [facility] Leukocyte esterase Test strip Ql (U) Negative Negative Lucero/uL [facility] Nitrite Ql (U) Negative Negative [facility] pH (U) 7.5 [pH] 5.0 - 8.0 pH [facility] Protein (U) [Mass/Vol] 200 mg/dL Abnormal Negative [facility] RBC LM.HPF (Urine sed) [#/Area] 0-2 [facility] Specific gravity (U) [Rel density] 1.018 1.005 - 1.030 [facility] Urobilinogen (U) [Mass/Vol] Normal Normal (0-1) mg/dL [facility] WBC LM.HPF (Urine sed) [#/Area] 0-2 [facility] A specimen with <=10 WBC is not consistent with inflammation. This specimen will not reflex to a urine culture. [facility] Vital signsOrdered By: Gianluca Kirkland on 08-24-2024 Heart rate 120 /min bpm [facility] Work Phone: Vital signson 08-24-2024 Heart rate 103 /min bpm [facility] 12 Lead EKGon 08-23-2024 12 Lead EKG Normal [facility] 30on 08-23-2024 30 Problem: Knowledge Deficit [...] Goal: Nutritional status is improving 08/23/20241648 by iMke Lopez RN Outcome: Progressing 08/23/2024 1046 by [...] by Mike Lopez RN Outcome: Progressing Normal [facility] 30 Problem: Knowledge Deficit Goal: [...] and maintained or improved Outcome: Progressing Normal [facility] Absolute lymphocyte countOrd ered By: Laurie Elizalde on 08-23-2024 Lymphocytes Auto (Unsp spec) [#/Vol] 0.36 10*3/uL Low 0.83-4.51 [facility] Absolute neutrophil countOrd ered By: Laurie Elizalde on 08-23-2024 Neutrophils (Bld) [#/Vol] 24.4 10*3/uL High 2.0-7.7 [facility] Activated partial thrombopla stin time (aPTT) in platelet poor plasma by coagulation aOrdered By: Laurie Elizalde on 08-23-2024 aPTT Coag (PPP) [Time] 28.3 s 24.1-36.2 [facility] Anion gap in Serum or Plasma Ordered By: Laurie Elizalde on 08-23-2024 Anion gap [Moles/Vol] 22 mmol/L High 5-15 [facility] Automated lymphocyte count a s percentage of total leukocytesOrdered By: Laurie Elizalde on 08-23-2024 Lymphocytes/100 WBC Auto (Unsp spec) 1.4 % Low 19-41 [facility] BC GPC IDon 08-23-2024 GPC ID Normal [facility] Comment on above: Performed By: #### M 100.636, L300.3900, L500.4050, L300.4310, L503.6005, L100.0100, M200.1000 ####[facility] [address] [place], [address] BLOOD CULTUREon 08-23-2024 Bacteria identified Cx Nom [...] = Non-susceptible NO = No Interpretation ] [facility] Comment on above: Performed By: #### L [id number], CIC974 ####Study Manager: RORO LUNDBERG ([phone])[facility])[address] [place] [address] Bacteria identified Cx Nom (Bld) BLOOD CULTURE (AA) Reference STAPHYLOCOCCUS AUREUS Staphylococcus aureus (AA) ID consult required per med staff policy dated 2021. For identification and/or sensitivity, refer to culture collected on: 08/23/24 at 1303([id number]) This is an edited result. Previous organism was Gram-positive cocci on 08/24/2024 at 0543 EDT. PBP2A Reference Negative ORDER COMMENTS: Blood Collection Site: Right Upper Arm [ S = SUSCEPTIBLE R = RESISTANT I = INTERMEDIATE S-DD = Susceptible-dose dependent NS = Non-susceptible NO = No Interpretation ] [facility] Comment on above: Performed By: #### L [id number] #### Study Manager: RORO LUNDBERG ([id number]) [address] BLOOD CULTURE IDENTIFICATION - AEROBICon 08-23-2024 BLOOD CULTURE IDENTIFICATION - AEROBIC STAPHYLOCOCCUS AUREUS, BLOOD (A) Reference Detected Not Detected MECA/C AND MREJ (MRSA), BLOOD Reference Not Detected Not Detected ORDER COMMENTS: Methodology: Multiplex PCR The [employer] panel can detect the following organisms: [...] KPC, NDM, OXA-48-like, VIM, and mcr-1. Normal [facility] Comment on above: Performed By: #### L [id number], JXT555 ####Study Manager: RORO LUNDBERG ([id number])[address] BUN/creatinine ratioOrdered By: Laurie Elizalde on 08-23-2024 Urea nitrogen/Creatinine [Mass ratio] 6.1 mg/mg Low 10-20 [facility] Basophil percentageOrdered B y: Laurie Elizalde on 08-23-2024 Basophils/100 WBC (Bld) 0.3 % 0-1 [facility] Beta-Hydroxbytyrateon 2024 BETA-HYDROXYBUT 1.2 mmol/L Normal 0.0-0.3 [facility] Comment on above: Order Comment: ADD O N Performed By: #### L 501.6901 ####[facility] [address] [place], [place], [id number] Beta-hydroxybutyrateOrdered By: Laurie Elizalde on 08-23-2024 Beta hydroxybutyrate [Mass/Vol] 1.2 mmol/L 0.0-0.3 [facility] Bilirubin Test strip Ql (U)O rdered By: Laurie Elizalde on 08-23-2024 Bilirubin Ql (U) Negative Negative [facility] Bilirubin, totalOrdered By: Laurie Elizalde on 08-23-2024 Bilirubin [Mass/Vol] 0.41 mg/dL 0.00-1.30 [facility] Blood cultureOrdered By: Farrah Elizalde on 08-23-2024 Bacteria identified Cx Nom (Bld) Staphylococcus aureus Abnormal [facility] Blood manual differential co mment interpretation (narrative result)Ordered By: Laurie Elizalde on 08-23-2024 Manual differential comment Dilshad (Bld) [Interp] SCANNED [facility] Comment on above: NEUTROPHILIA PRESENT LYMPHOPENIA PRESENTLEFT SHIFT: BANDS PRESENT 1+ C-REACTIVE PROTEINon 025 CRP [Mass/Vol] 282.2 mg/L High <5.0 [facility] Comment on above: Performed By: #### L [id number] #### Study Manager: RORO LUNDBERG ([id number]) [facility] [address] [place] [address] CBC W Auto Differential pane l (Bld)Ordered By: Mindy James on 08-23-2024 Erythrocyte distribution width (RBC) [Ratio] 13 % 11.5 - 15.0 % [facility] Hematocrit (Bld) [Volume fraction] 29.5 % Low 40.0 - 52.0 % [facility] Hemoglobin (Bld) [Mass/Vol] 10.4 g/dL Low 13.0 - 18.0 g/dL [facility] Interpretation and review of laboratory results Abnormal [facility] MCH (RBC) [Entitic mass] 31.1 pg 26. 0 - 34.0 pg [facility] MCHC (RBC) [Mass/Vol] 35.3 % 30.5 - 36.0 % [facility] MCV (RBC) [Entitic vol] 88.3 fL 77.0 - 99.0 fL [facility] Platelet mean volume (Bld) [Entitic vol] 9.7 fL 9.0 - 12.7 fL [facility] Platelets (Bld) [#/Vol] 177 10*3/uL 140 - 440 10*3/uL [facility] RBC (Bld) [#/Vol] 3.34 10*6/uL Low 4.40 - 5.9 0 10*6/uL [facility] WBC (Bld) [#/Vol] 20.3 10*3/uL High 3.6 - 10.7 10*3/uL [facility] CBC W/Diff, Automatedon 05- SMEAR COMMENT SCANNED Normal [facility] Comment on above: Result Comment: NEUT ROPHILIA PRESENTLYMPHOPENIA PRESENTLEFT SHIFT: BANDS PRESENT 1+ Performed By: #### M 100.636, L300.3900, L500.4050, L300.4310, L503.6005, L100.0100, M200.1000 ####[facility] [address] [place], [place], [id number] CBC WITH AUTO DIFFERENTIALon 08-23-2024 Erythrocyte distribution width (RBC) [Ratio] 13.0 % Normal 11.5-15.0 [facility] Comment on above: Performed By: #### L [id number] #### Study Manager: RORO LUNDBERG ([id number]) [facility]) [address] [place] [address] Hematocrit (Bld) [Volume fraction] 29.5 % Low 40.0-52.0 [facility] Comment on above: Performed By: #### L [id number] #### Study Manager: RORO LUNDBERG ([id number]) [facility] ([facility]) [address] [place] [address] Hemoglobin (Bld) [Mass/Vol] 10.4 g/dL Low 13.0-18. 0 [facility] Comment on above: Performed By: #### L [id number] #### Study Manager: RORO LUNDBERG ([id number]) [facility] ([facility]) [address] [place] [address] MCH (RBC) [Entitic mass] 31.1 pg Normal 26.0-34.0 [facility] Comment on above: Performed By: #### L [id number] #### Study Manager: RORO LUNDBERG ([id number]) [facility] ([facility]) [address] [place] [address] MCHC 35.3 % Normal 30.5-36.0 [facility] Comment on above: Performed By: #### L [id number] #### Study Manager: RORO LUNDBERG ([id number]) [facility] ([facility]) [address] [place] [address] MCV (RBC) [Entitic vol] 88.3 fL Normal 77.0-99.0 [facility] Comment on above: Performed By: #### L [id number] #### Study Manager: RORO LUNDBERG ([id number]) [facility]) [address] [place] [address] Platelet mean volume (Bld) [Entitic vol] 9.7 fL Normal 9.0-12.7 [facility] Comment on above: Performed By: #### L [id number] #### Study Manager: RORO LUNDBERG ([id number]) [facility] ([facility]) [address] [place] [address] Platelets (Bld) [#/Vol] 177 10*3/uL Normal 140-440 [facility] Comment on above: Performed By: #### L [id number] #### Study Manager: RORO LUNDBERG ([id number]) [facility]) [address] [place] [address] RBC (Bld) [#/Vol] 3.34 10*6/uL Low 4.40-5.90 [facility] Comment on above: Performed By: #### L [id number] #### Study Manager: RORO LUNDBERG ([id number]) [facility]) [address] [place] [address] WBC (Bld) [#/Vol] 20.3 10*3/uL High 3.6-10.7 [facility] Comment on above: Performed By: #### L [id number] #### Study Manager: RORO LUNDBERG ([id number]) [facility] ([facility]) [address] [place] [address] [place] CKon 08-23-2024 CK [Catalytic activity/Vol] 90 U/L Normal 30-185 [facility] Comment on above: Performed By: #### L [id number] #### Study Manager: RORO LUNDBERG ([id number]) [facility] ([facility]) [address] [place] [address] CK [Catalytic activity/Vol]o n 08-23-2024 Interpretation and review of laboratory results Normal [facility] METABOLIC PANE Jose 08-23-2024 Albumin [Mass/Vol] 3.3 g/dL Low 3.5-5.0 [facility] Comment on above: Performed By: #### L [id number] #### Study Manager: RORO LUNDBERG ([id number]) [facility] ([facility]) [address] [place] [address] ALP [Catalytic activity/Vol] 85 U/L Normal 40-150 [facility] Comment on above: Performed By: #### L [id number] #### Study Manager: RORO LUNDBERG ([id number]) [facility] ([facility]) [address] [place] [address] ALT [Catalytic activity/Vol] 10 U/L Normal <40 [facility] Comment on above: Performed By: #### L [id number] #### Study Manager: RORO LUNDBERG ([id number]) [facility] ([facility]) [address] [place] [address] Anion gap [Moles/Vol] 15 mmol/L High 3-13 [facility] Comment on above: Performed By: #### L [id number] #### Study Manager: RORO LUNDBERG ([id number]) [facility] ([facility]) [address] [place] [address] AST [Catalytic activity/Vol] 22 U/L Normal <34 [facility] Comment on above: Performed By: #### L [id number] #### Study Manager: RORO LUNDBERG ([id number]) [facility]) [address] [place] [address] Bilirubin [Mass/Vol] 0.5 mg/dL Normal <1.2 [facility] Comment on above: Performed By: #### L [id number] #### Study Manager: RORO LUNDBERG ([id number]) [facility] [address] [place] [address] Calcium [Mass/Vol] 8.8 mg/dL Normal 8.4-10.2 [facility] Comment on above: Performed By: #### L [id number] #### Study Manager: RORO LUNDBERG ([id number]) [facility] [address] [place] [address] Chloride [Moles/Vol] 99 mmol/L Normal 98-107 [facility] Comment on above: Performed By: #### L [id number] #### Study Manager: RORO LUNDBERG ([id number]) [facility] [address] [place] [address] CO2 [Moles/Vol] 20 mmol/L Low 22-29 [facility] Comment on above: Performed By: #### L [id number] #### Study Manager: RORO LUNDBERG ([id number]) [facility] [address] [place] [address] Creatinine [Mass/Vol] 9.57 mg/dL High 0.72-1.25 [facility] Comment on above: Performed By: #### L [id number] #### Study Manager: RORO LUNDBERG ([id number]) [facility]) [address] [place] [address] GLOMERULAR FILTRATION RATE ML/MIN/1.73 SQ M.PREDICTED 6.4 mL/min/1.73m*2 Low >60.0 [facility] Comment on above: Result Comment: Calc ulation based on the Chronic Kidney Disease Epidemiology Collaboration (CKD-EPI) equation refit without adjustment for race Performed By: #### L [id number] #### Study Manager: RORO LUNDBERG ([id number]) [facility] [address] [place] [address] Glucose [Mass/Vol] 224 mg/dL High 74-100 [facility] Comment on above: Performed By: #### L [id number] #### Study Manager: RORO LUNDBERG ([id number]) [facility] ([facility]) [address] [place] [address] Potassium [Moles/Vol] 4.4 mmol/L Normal 3.5-5.1 [facility] Comment on above: Result Comment: [facility] potassium values may be up to 0.5 mmol/L lower than serum values. Performed By: #### L [id number] #### Study Manager: RORO LUNDBERG ([id number]) [facility] ([facility]) [address] [place] [address] Protein [Mass/Vol] 6.4 g/dL Normal 6.4-8.3 [facility] Comment on above: Performed By: #### L [id number] #### Study Manager: RORO LUNDBERG ([id number]) [facility] ([facility]) [address] [place] [address] Sodium [Moles/Vol] 134 mmol/L Low 136-145 [facility] Comment on above: Performed By: #### L [id number] #### Study Manager: RORO LUNDBERG ([id number]) [facility] ([facility]) [address] [place] [address] Urea nitrogen [Mass/Vol] 59 mg/dL High 8-21 [facility] Comment on above: Performed By: #### L [id number] #### Study Manager: RORO LUNDBERG ([id number]) [facility]) [address] [place] [address] CT Abdomen and Pelvis WO and W [...] MD Electronically Signed Date/Time: 08/23/2024 8:42 PM T [facility] Julian Guillermo MD - 08/23/2024 [facility] Name: [facility] 1980 [id number] Exam Date/Time: 08/23/2024 14:56 Procedure: CT CHEST [...] Electronically Signed Date/Time: 08/23/2024 8:42 PM EDT [facility] Radiology Study observation (narrative) [facility] CT Abdomen and Pelvis WO and W contrast IVOrdered By: Julian Guillermo on 08-23-2024 [facility] [employer] Work Phone: CT CHEST ABDOMEN PELVIS W CO NTRASTon 08-23-2024 CT CHEST ABDOMEN PELVIS W CONTRAST Patient Name: [facility]ARRA[facility] 1980 [id number] Exam Date/Time: 08/23/2024 14:56 Procedure: CT CHEST [...] stage renal failure - on dialysis Normal [facility] Carbon dioxide, total [Moles /volume] in Central venous bloodOrdered By: Laurie Elizalde on 08-23-2024 CO2 [Moles/Vol] 19.1 mmol/L Low 21.0-32.0 [facility] Chest 1 View (Portable)on Chest 1 View (Portable) Normal [facility] Chloride assayOrdered By: Tito Elizalde on 08-23-2024 Chloride [Moles/Vol] 93 mmol/L Low 98-108 [facility] Comprehensive Metabolic Prof ilon 08-23-2024 Albumin [Mass/Vol] 4.7 g/dL Normal 3.5-5.0 [facility] Comment on above: Performed By: #### M 100.636, L300.3900, L500.4050, L300.4310, L503.6005, L100.0100, M200.1000 ####[facility] [address] [place], [address] Albumin/Globulin [Mass ratio] 1.6 {ratio} Normal 0.9-2.4 [facility] Comment on above: Performed By: #### M 100.636, L300.3900, L500.4050, L300.4310, L503.6005, L100.0100, M200.1000 ####[facility] [address] [place], [address] ALK PHOS 94 U/L Normal 40-129 [facility] Comment on above: Performed By: #### M 100.636, L300.3900, L500.4050, L300.4310, L503.6005, L100.0100, M200.1000 ####[facility] [address] [place], [address] ALT [Catalytic activity/Vol] 12 U/L Normal <=46 [facility] Comment on above: Performed By: #### M 100.636, L300.3900, L500.4050, L300.4310, L503.6005, L100.0100, M200.1000 ####[facility] [address] [place], [address] AST [Catalytic activity/Vol] 17 U/L Normal <=37 [facility] Comment on above: Performed By: #### M 100.636, L300.3900, L500.4050, L300.4310, L503.6005, L100.0100, M200.1000 ####[facility] [address] [place], [address] Bilirubin [Mass/Vol] 0.41 mg/dL Normal 0.00-1.30 [facility] Comment on above: Performed By: #### M 100.636, L300.3900, L500.4050, L300.4310, L503.6005, L100.0100, M200.1000 ####[facility] [address] [place], [address] BUN/CRE 6.1 RATIO Low 10-20 [facility] Comment on above: Performed By: #### M 100.636, L300.3900, L500.4050, L300.4310, L503.6005, L100.0100, M200.1000 ####[facility] [address] [place], [address] Calcium [Mass/Vol] 10.5 mg/dL Normal 7.6-11.0 [facility] Comment on above: Performed By: #### M 100.636, L300.3900, L500.4050, L300.4310, L503.6005, L100.0100, M200.1000 ####[facility] [address] [place], [address] Chloride [Moles/Vol] 93 mmol/L Low 98-108 [facility] Comment on above: Performed By: #### M 100.636, L300.3900, L500.4050, L300.4310, L503.6005, L100.0100, M200.1000 ####[facility] [address] [place], [address] CO2 [Moles/Vol] 19.1 mmol/L Low 21.0-32.0 [facility] Comment on above: Performed By: #### M 100.636, L300.3900, L500.4050, L300.4310, L503.6005, L100.0100, M200.1000 ####[facility] [address] [place], [place], [id number] Creatinine [Mass/Vol] 8.87 mg/dL Invalid Interpretation Code 0.70-1.20 [facility] Comment on above: Result Comment: Leonor pugh Result(s) Called at: 0139 by:?? MONET CHILDS Results read back by same. Performed By: #### M 100.636, L300.3900, L500.4050, L300.4310, L503.6005, L100.0100, M200.1000 ####[facility] [address] [place], [place], [id number] ECRCL 11.55 ml/min Low 50-250 [facility] Comment on above: Performed By: #### M 100.636, L300.3900, L500.4050, L300.4310, L503.6005, L100.0100, M200.1000 ####[facility] [address] [place], [place], [id number] GAP 22 High 5-15 [facility] Comment on above: Performed By: #### M 100.636, L300.3900, L500.4050, L300.4310, L503.6005, L100.0100, M200.1000 ####[facility] [address] [place], [place], [id number] GFR/1.73 sq M.predicted among non-blacks MDRD (S/P/Bld) [Vol rate/Area] 7 mL/min/{1.73_m2} Low >60 [facility] Comment on above: Result Comment: mL/m in/1.73m2 CKD-EPI Creatinine Equation (2020) Performed By: #### M 100.636, L300.3900, L500.4050, L300.4310, L503.6005, L100.0100, M200.1000 ####[facility] [address] [place], [address] Globulin (S) [Mass/Vol] 3.0 g/dL Normal 2.2-4.2 [facility] Comment on above: Performed By: #### M 100.636, L300.3900, L500.4050, L300.4310, L503.6005, L100.0100, M200.1000 ####[facility] [address] [place], [address] Glucose [Mass/Vol] 220 mg/dL High 70-99 [facility] Comment on above: Performed By: #### M 100.636, L300.3900, L500.4050, L300.4310, L503.6005, L100.0100, M200.1000 ####[facility] [address] [place], [address] Potassium [Moles/Vol] 3.6 mmol/L Normal 3.3-5.1 [facility] Comment on above: Performed By: #### M 100.636, L300.3900, L500.4050, L300.4310, L503.6005, L100.0100, M200.1000 ####[facility] [address] [place], [address] Sodium [Moles/Vol] 135 mmol/L Normal 133-145 [facility] Comment on above: Performed By: #### M 100.636, L300.3900, L500.4050, L300.4310, L503.6005, L100.0100, M200.1000 ####[facility] [address] [place], [address] T PROT 7.6 g/dL Normal 5.9-8.4 [facility] Comment on above: Performed By: #### M 100.636, L300.3900, L500.4050, L300.4310, L503.6005, L100.0100, M200.1000 ####[facility] [address] [place], [address] Urea nitrogen [Mass/Vol] 54 mg/dL High 4-19 [facility] Comment on above: Performed By: #### M 100.636, L300.3900, L500.4050, L300.4310, L503.6005, L100.0100, M200.1000 ####[facility] [address] [place], [address] Comprehensive metabolic 1998 panelon 08-23-2024 Albumin [Mass/Vol] 3.3 g/dL Low 3.5 - 5.0 g/dL [facility] ALP [Catalytic activity/Vol] 85 U/L 40 - 150 U/L [facility] ALT [Catalytic activity/Vol] 10 U/L NINF - 40 U/L [facility] Anion gap [Moles/Vol] 15 mmol/L High 3 - 13 mmol/L [facility] AST [Catalytic activity/Vol] 22 U/L NINF - 34 U/L [facility] Bilirubin [Mass/Vol] 0.5 [facility]/dL [facility] Calcium [Mass/Vol] 8.8 mg/dL 8.4 - 10. 2 mg/dL [facility] Chloride [Moles/Vol] 99 mmol/L 98 - 10 7 mmol/L [facility] CO2 [Moles/Vol] 20 mmol/L Low 22 - 29 mmol/L [facility] Creatinine [Mass/Vol] 9.57 mg/dL High 0.72 - 1.25 mg/dL [facility] GFR/1.73 sq M.predicted (S/P/Bld) [Vol rate/Area] 6.4 mL/min Low - PINF [facility] Comment on above: Calculation based on the Chronic Kidney Disease Epidemiology Collaboration (CKD-EPI) equation refit without adjustment for race Glucose [Mass/Vol] 224 mg/dL High 74 - 100 mg/dL [facility] Potassium [Moles/Vol] 4.4 mmol/L 3.5 - 5.1 mmol/L [facility] Comment on above: Plasma potassium willie ues may be up to 0.5 mmol/L lower than serum values. Protein [Mass/Vol] 6.4 g/dL 6.4 - 8.3 g/dL [employer] Sodium [Moles/Vol] 134 mmol/L Low 136 - 145 mmol/L [employer] Urea nitrogen [Mass/Vol] 59 mg/dL High 8 - 21 mg/d L [employer] Consulton 08-23-2024 Consult [facility] [place] [address] [place] [address] Consult Note Patient's Name: Farrah [...] do not hesitate to contact me at [phone] with any concerns. Osmel Andrade MD 2:37 PM 08/23/2024 Chief Complaint: fever History Obtained From: patient and chart review History of Present Ilness: Farrah Gonzales is a 44 y.o. male with underlying history below who is currently being admitted to the hospital of workup for sepsis. Nephrology is consulted for management of end-stage renal disease Patient dialyzes at [facility] in [place] Friday. His last dialysis treatment was on [...] Continuous Akbar Ahmet-Pantale (more content not included)... Normal [facility] Consult Pharmacy Managed Vancomycin Dosing [...] [] CrCl ml/min (Cockcroft-Gault, if ANN, no FRAME POLISHER) Consulted By: Brayan Barros Vancomycin Level: []Trough [...] Time: 1:53 PM Den GomesD (available on [employer] ([employer]u) [facility] Consult Department of Internal Medicine Division of Endocrinology, Diabetes, & Metabolism Endocrinology Note Patient Name: Farrah Gonzales : 1980 AGE: 44 y.o. Room[facility]Bed: [facility] Admission Date: 08/23/2024 Visit Date: 08/23/2024 Reason for Endocrine Consult: Type 1 diabetes mellitus on insulin pump. Provider/Team Requesting Consult: Brayan Barros PCP: Kristal Sullivan MD Outpt Foreign Policy Officer: Yes . Jace Ko MD at outside [...] insulin pump. Outpt Follow Up-- With outside stave grader. SUBJECTIVE/HPI: CHIEF COMPLAINT: No chief complaint on file. Farrah is a 44-year-old white male who was admitted with sepsis, to determine etiology. He has a history of type 1 diabetes mellitus since age 18. He has been on an OmniPod for the last 3 years, with a [employer] G6 CGM. He uses auto mode on [...] found for: CHOLHDLRATIO No results found for: [id number] No results found for: TSH, Y1QSVXH, R4BUBLW, THYROIDAB Radiology reportsas per the Radiologist Radiology: [...] may re (more content not included)... Normal [facility] ESR (Bld) [Velocity]Ordered By: Suha Crow on 08-23-2024 Interpretation and review of laboratory results Abnormal [facility] Emergency Department Summary on 08-23-2024 Emergency Department Summary Normal [facility] Eosinophil percentageOrdered By: Laurie Elizalde on 08-23-2024 Eosinophils/100 WBC (Bld) 0.0 % 0-5 [facility] Erythrocyte distribution wid th ratioOrdered By: Laurie Elizalde on 08-23-2024 Erythrocyte distribution width (RBC) [Ratio] 12.6 % 11.6-14.6 [facility] Erythrocyte distribution wid th standard deviationOrdered By: Laurie Elizalde on 08-23-2024 Erythrocyte distribution width (RBC) [Ratio] 39.8 fl 35.1-43.9 [facility] Glomerular filtration rate ( GFR) estimation/1.73 sq m using serum, plasma, or whole bOrdered By: Laurie Elizalde on 08-23-2024 GFR/1.73 sq M.predicted among non-blacks MDRD (S/P/Bld) [Vol rate/Area] 7 mL/min/{1.73_m2} Low >60 [facility] Comment on above: mL/min/1.73m2 CKD-EP I Creatinine Equation (2020) HIGH SENSITIVITY TROPONIN, S ERIAL BASELINEon 08-23-2024 TROPONIN HS SERIAL BASELINE 59 ng/L High <=35 [facility] Comment on above: Result Comment: In i ndividuals presenting with symptoms > 2h, a baseline troponin <= 5 ng/L suggests acute cardiac injury is unlikely and further serial testing is generally not indicated. Performed By: #### L [id number] #### Study Manager: RORO LUNDBERG ([id number]) [facility] ([employer]) [address] [place] [address] HIGH SENSITIVITY TROPONIN, S ERIAL, SECOND TESTon 08-23-2024 2H TROPONIN HS (SERIAL 2ND TROPONIN) 57 ng/L High <=35 [facility] Comment on above: Result Comment: Risi ng or falling troponin delta below 2 ng/L as compared to baseline value suggests that acute cardiac injury is unlikely. Performed By: #### L [id number] #### Study Manager: RORO LUNDBERG ([id number]) [facility] ([employer]) [address] [place] [address] HIGH SENSITIVITY TROPONIN, S ERIAL, THIRD TESTon 08-23-2024 4H TROPONIN HS (SERIAL 3RD TROPONIN) 50 ng/L High <=35 [facility] Comment on above: Result Comment: 4h t roponin (3rd troponin) samples collected between 1h 40 min and 2h and 20 min of the 2h troponin collection time can be utilized to interpret delta troponins as per [facility] algorithms. Samples collected outside this timeframe need to be interpreted clinically. Rising or falling troponin delta between 2 ??? 15 ng/L as compared to 2h troponin value requires further evaluation. Performed By: #### L [id number] ####Study Manager: RORO LUNDBERG ([id number])[facility] ([facility] [place] [address] Hematocrit Auto (Bld) [Volum e fraction]Ordered By: Laurie Elizalde on 08-23-2024 Hematocrit (Bld) [Volume fraction] 33.5 % Low 40-54 [facility] Hemoglobin measurementOrdere d By: Laurie Elizalde on 08-23-2024 Hemoglobin (Bld) [Mass/Vol] 11.9 g/dL Low 13.0-16. 5 [facility] Immature granulocytes/100 WB C Auto (Bld)Ordered By: Laurie Elizalde on 08-23-2024 Immature granulocytes/100 WBC (Bld) 1.500 % High 0.0-0.9 [facility] Comment on above: IG% - Immature Granu locytes (promyelocytes, myelocytes and metamyelocytes) > 1% indicates that a LEFT SHIFT is Present. Influenza virus A and B and SARS-CoV-2 (COVID-19) and Respiratory syncytial virus RNAOrdered By: Laurie Elizalde on 08-23-2024 SARS-CoV-2 (COVID-19) RNA LAVERN+probe Ql (Unsp spec) [facility] [employer] normalized rat io (INR) calculationOrdered By: Laurie Elizalde on 08-23-2024 INR Coag (Bld) [Relative time] 1.1 {INR} [facility] Ketones Test strip Ql (U)Ord ered By: Laurie Elizalde on 08-23-2024 Ketones Ql (U) Negative Negative [facility] LACTIC ACID WITH REFLEXon Lactate [Moles/Vol] 1.5 mmol/L Normal 0.5-2.2 [facility] Comment on above: Performed By: #### L [id number] #### Study Manager: RORO LUNDBERG ([id number]) [facility] ([employer]) [address] [place] [address] Laboratory - Chemistry and C hemistry - challengeon 08-23-2024 Procalcitonin [Mass/Vol] 5.94 ng/mL High JOE F - 0.07 ng/mL [facility] TSH Qn 2.48 m[IU]/L [facility] CK [Catalytic activity/Vol] 90 U/L 30 - 185 U/L [facility] CRP [Mass/Vol] 282.2 mg/L High NINF - 5.0 mg/L [facility] Lactate [Moles/Vol] 1.5 mmol/L 0.5 - 2. 2 mmol/L [facility] Laboratory - Chemistry and C hemistry - challengeOrdered By: Laurie Elizalde on 08-23-2024 AST [Catalytic activity/Vol] 17 U/L <38 [facility] Laboratory - Hematology and Cell countson 08-23-2024 Band form neutrophils (Bld) [#/Vol] 2 10*3/uL High NINF - 0.0 10*3/uL [facility] Band form neutrophils/100 WBC (Bld) 10 % High NINF - 0 % [facility] Lymphocytes (Bld) [#/Vol] 0.8 10*3/uL Low 1. 0 - 4.3 10*3/uL [facility] Lymphocytes/100 WBC (Bld) 4 % Low 15 - 45 % [facility] Monocytes (Bld) [#/Vol] 0.6 10*3/uL 0.0 - 0.9 10*3/uL [facility] Monocytes/100 WBC (Bld) 3 % Low 5 - 13 % [facility] Neutrophils (Bld) [#/Vol] 18.9 10*3/uL High 1. 8 - 7.5 10*3/uL [facility] Ovalocytes LM Ql (Bld) Slight Abnormal (none) [facility] Poikilocytosis LM Ql (Bld) Slight Abnormal (none) [facility] RBC morphology finding Nom (Bld) abnormal [facility] Segmented neutrophils/100 WBC (Bld) 83 % High 38 - 82 % [facility] Laboratory - Hematology and Cell countsOrdered By: Suha Crow on 08-23-2024 ESR (Bld) [Velocity] 30 mm/h High [facility] Lactic Acidon 08-23-2024 Lactate [Moles/Vol] 1.1 mmol/L Normal 0.0-2.0 [place] Comment on above: Performed By: #### L 503.6005 ####[facility] [address] [place], [address] Lactate [Moles/Vol] 2.5 mmol/L Invalid Interpretation Code 0.0-2.0 [facility] Comment on above: Order Comment: Y Result Comment: Crit ical Result(s) Called at: 0139 by:??MONET CHILDS Results read back by same. Performed By: #### M 100.636, L300.3900, L500.4050, L300.4310, L503.6005, L100.0100, M200.1000 ####[facility] [address] [place], [address] Lactic acid measurementOrder ed By: Laurie Elizalde on 08-23-2024 Lactate [Moles/Vol] 1.1 mmol/L 0.0-2.0 [place] M100.678on 08-23-2024 M100.678 SARS-CoV-2 (COVID 19) Negative INFLUENZA A Negative INFLUENZA B Negative RSV PCR Negative Normal [facility] Comment on above: Performed By: #### M 100.678, L400.0001, M100.2200 ####[facility] [address] [place], [address] MANUAL DIFFERENTIAL (CELLAVI RODERICK)on 08-23-2024 BAND NEUTROPHILS TOTAL PER COUNTED LEUKOCYTES BY MANUAL COUNT 11 Normal [facility] Comment on above: Performed By: #### L [id number] #### Study Manager: RORO LUNDBERG ([id number]) [facility] ([employer]) [address] [place] [address] [place] BANDS (10*3/UL) IN BLOOD-CELLAVISION 2.0 10*3/uL High <=0.0 [facility] Comment on above: Performed By: #### L [id number] #### Study Manager: RORO LUNDBERG ([id number]) [facility] ([facility]) [address] [place] [address] [place] BASOPHILS TOTAL PER COUNTED LEUKOCYTES BY MANUAL COUNT Normal [facility] Comment on above: Performed By: #### L [id number] #### Study Manager: RORO LUNDBERG ([id number]) [facility] ([facility]) [address] [place] [address] BLASTS TOTAL PER COUNTED LEUKOCYTES BY MANUAL COUNT Normal [facility] Comment on above: Performed By: #### L [id number] #### Study Manager: RORO LUNDBERG ([id number]) [facility] ([facility]) [address] [place] [address] [place] EOSINOPHILS TOTAL PER COUNTED LEUKOCYTES BY MANUAL COUNT Normal [facility] Comment on above: Performed By: #### L [id number] #### Study Manager: RORO LUNDBERG ([id number]) [facility] ([facility]) [address] [place] [address] [place] LYMPHOCYTES (10*3/UL) IN BLOOD-CELLAVISION 0.8 10*3/uL Low 1.0-4.3 [facility] Comment on above: Performed By: #### L [id number] #### Study Manager: RORO LUNDBERG ([id number]) [facility] ([facility]) [address] [place] [address] [place] LYMPHOCYTES TOTAL PER COUNTED LEUKOCYTES BY MANUAL COUNT 4 Normal [facility] Comment on above: Performed By: #### L [id number] #### Study Manager: RORO LUNDBERG ([id number]) [facility] ([facility]) [address] [place] [address] [place] LYMPHOCYTES/100 LEUKOCYTES IN BLOOD-CELLAVISION 4 % Low 15-45 [facility] Comment on above: Performed By: #### L [id number] #### Study Manager: RORO LUNDBERG ([id number]) [facility] ([facility] [address] [place] [address] [place] METAMYELOCYTES TOTAL PER COUNTED LEUKOCYTES BY MANUAL COUNT Normal [facility] Comment on above: Performed By: #### L [id number] #### Study Manager: RORO LUNDBERG ([id number]) [facility] ([facility]) [address] [place] [address] [place] MONOCYTES (10*3/UL) IN BLOOD-CELLAVISION 0.6 10*3/uL Normal 0.0-0.9 [facility] Comment on above: Performed By: #### L [id number] #### Study Manager: RORO LUNDBERG ([id number]) [facility] ([facility]) [address] [place] [address] [place] MONOCYTES TOTAL PER COUNTED LEUKOCYTES BY MANUAL COUNT 3 Normal [facility] Comment on above: Performed By: #### L [id number] #### Study Manager: RORO LUNDBERG ([id number]) [facility] ([facility]) [address] [place] [address] [place] MONOCYTES/100 LEUKOCYTES IN BLOOD-NIRANJAN 3 % Low 5-13 [facility] Comment on above: Performed By: #### L [id number] #### Study Manager: RORO LUNDBERG ([id number]) [facility] ([facility]) [address] [place] [address] [place] MYELOCYTES COUNTED BY MANUAL COUNT Normal [facility] Comment on above: Performed By: #### L [id number] #### Study Manager: RORO LUNDBERG ([id number]) [facility] ([facility] [address] [place] [address] [place] NEUTROPHILS BAND FORM/100 LEUKOCYTES IN BLOOD-CELLAVISI 10 % High <=0 [facility] Comment on above: Performed By: #### L [id number] #### Study Manager: RORO LUNDBERG ([id number]) [facility] [address] [place] [address] [place] NEUTROPHILS TOTAL PER COUNTED LEUKOCYTES BY MANUAL COUNT 88 Normal [facility] Comment on above: Performed By: #### L [id number] #### Study Manager: RORO LUNDBERG ([id number]) [facility] ([facility]) [address] [place] [address] [place] OVALOCYTES PRESENCE IN BLOOD BY LIGHT MICROSCOPY Slight Abnormal (none) [facility] Comment on above: Performed By: #### L [id number] #### Study Manager: RORO LUNDBERG ([id number]) [facility] [address] [place] [address] [place] POIKILOCYTOSIS (PRESENCE) IN BLOOD BY LIGHT MICROSCOPY Slight Abnormal (none) [facility] Comment on above: Performed By: #### L [id number] #### Study Manager: RORO LUNDBERG ([id number]) [facility] ([facility]) [address] [place] [address] [place] PROMYELOCYTES TOTAL PER COUNTED LEUKOCYTES BY MANUAL COUNT Normal [facility] Comment on above: Performed By: #### L [id number] #### Study Manager: RORO LUNDBERG ([id number]) [facility] ([facility]) [address] [place] [address] [place] RBC MORPHOLOGY IN BLOOD abnormal Normal [facility] Comment on above: Performed By: #### L [id number] #### Study Manager: RORO LUNDBERG ([id number]) [facility] ([facility] [address] [place] [address] [place] SEGMENTED NEUTROPHILS (10*3/UL) IN BLOOD-CELLAVISION 18.9 10*3/uL High 1.8-7.5 [facility] Comment on above: Performed By: #### L [id number] #### Study Manager: RORO LUNDBERG ([id number]) [facility] ([facility]) [address] [place] [address] [place] SEGMENTED NEUTROPHILS/100 LEUKOCYTES-CE 83 % High 38-82 [facility] Comment on above: Performed By: #### L [id number] #### Study Manager: RORO LUNDBERG ([id number]) [facility] [address] [place] [address] [place] UNCLASSIFIED CELLS TOTAL PER COUNTED LEUKOCYTES BY MANUAL COUNT Normal [facility] Comment on above: Performed By: #### L [id number] #### Study Manager: RORO LUNDBERG ([id number]) [facility] ([facility]) [address] [place] [address] VARIANT LYMPHOCYTES TOTAL PER COUNTED LEUKOCYTES BY MANUAL COUNT Normal [facility] Comment on above: Performed By: #### L [id number] #### Study Manager: RORO LUNDBERG ([id number]) [facility] ([employer]) [address] [place] [address] MCV (mean corpuscular volume ) determinationOrdered By: Laurie Elizalde on 08-23-2024 MCV (RBC) [Entitic vol] 87.5 fL 80-94 [facility] Magnesiumon 08-23-2024 Magnesium [Mass/Vol] 1.7 mg/dL Normal 1.5-2.2 [facility] Comment on above: Performed By: #### L 501.2300, L501.5200 ####[facility] [address] [place], [address] Magnesium measurement (mass/ volume)Ordered By: Laurie Elizalde on 08-23-2024 Magnesium (Unsp spec) [Mass/Vol] 1.7 mg/dL 1.5-2.2 [facility] Mean corpuscular hemoglobin (MCH) determinationOrdered By: Laurie Elizalde on 08-23-2024 MCH (RBC) [Entitic mass] 31.1 pg 27.0-32.0 [facility] Mean corpuscular hemoglobin concentration (MCHC) determinationOrdered By: Laurie Elizalde on 08-23-2024 MCHC (RBC) [Mass/Vol] 35.5 g/dL 32-36 [facility] Mean platelet volume determi nationOrdered By: Laurie Elizalde on 08-23-2024 Platelet mean volume (Bld) [Entitic vol] 9.1 fL 6.2-12.0 [facility] Microscopic analysis of urin e for red blood cells (RBC)Ordered By: Laurie Elizalde on 08-23-2024 Microscopic analysis of urine for red blood cells (RBC) 0 SEEN /hpf 0-5 [facility] Monocyte percentageOrdered B y: Laurie Tonio on 08-23-2024 Monocytes/100 WBC (Bld) 3.2 % 0-10 [facility] Mucus LM Ql (Urine sed)Order ed By: Laurie Elizalde on 08-23-2024 Mucus Ql (Urine sed) 0 SEEN /hpf [facility] NT PRO BNPon 08-23-2024 Natriuretic peptide B (Bld) [Mass/Vol] 09549 pg/mL High <125 [facility] Comment on above: Performed By: #### L [id number] #### Study Manager: RORO LUNDBERG ([id number]) [facility] ([facility]) [address] [place] [address] Natriuretic peptide B [Mass/ Vol]on 08-23-2024 Interpretation and review of laboratory results Abnormal [facility] Natriuretic peptide B (Bld) [Mass/Vol] 92560 pg/mL High NINF - 125 pg/mL [facility] Neutrophil percentageOrdered By: Laurie Elizalde on 08-23-2024 Neutrophils/100 WBC (Bld) 93.6 % High 47-70 [facility] Nitrite Test strip Ql (U)Ord ered By: Laurie Elizalde on 08-23-2024 Nitrite Ql (U) Negative Negative [facility] No Panel Informationon 08-23 4h Troponin HS (Serial 3rd Troponin) 50 ng/L High NINF - 35 ng/L [facility] Comment on above: 4h troponin (3rd tro ponin) samples collected between 1h 40 min and 2h and 20 min of the 2h troponin collection time can be utilized to interpret delta troponins as per [facility] algorithms. Samples collected outside this timeframe need to be interpreted clinically. Rising or falling troponin delta between 2 15 ng/L as compared to 2h troponin value requires further evaluation. Interpretation and review of laboratory results Abnormal [facility] 2h Troponin HS (Serial 2nd Troponin) 57 ng/L High NINF - 35 ng/L [facility] Comment on above: Rising or falling tr oponin delta below 2 ng/L as compared to baseline value suggests that acute cardiac injury is unlikely. Interpretation and review of laboratory results Abnormal [facility] Atypical Lymphocytes Manual [facility] Bands Manual 11 [facility] Basophils Manual [facility] Blasts Manual [facility] Eosinophils Manual [facility] Interpretation and review of laboratory results Abnormal [facility] Lymphocytes Manual 4 [facility] Metamyelocytes Manual [facility] Monocytes Manual 3 [facility] Myelocytes Manual [facility] Neutrophils Manual 88 [facility] Promyelocytes Manual [facility] Unclassified Cells, Manual [facility] Interpretation and review of laboratory results Abnormal [facility] Troponin HS Serial Baseline 59 ng/L High NINF - 35 ng/L [facility] Comment on above: In individuals prese nting with symptoms > 2h, a baseline troponin <= 5 ng/L suggests acute cardiac injury is unlikely and further serial testing is generally not indicated. [facility] Interpretation and review of laboratory results Abnormal [facility] Interpretation and review of laboratory results Normal [facility] No Panel InformationOrdered By: Laurie Elizalde on 08-23-2024 17 U/L <38 [facility] Nucleated red blood cell per centageOrdered By: Laurie Elizalde on 08-23-2024 Nucleated RBC/100 WBC (Bld) [Ratio] 0 % 0-5 [facility] Nursing Noteon 08-23-2024 Nursing Note Pt.'s insulin pump reading glucose 180 Normal [facility] Nursing Note Patient Name: Farrah Gonzales Patient : 1980 Acct: [id number] Date of Admission: 08/23/2024 Room[facility]: [facility] A Code Status: Full Code Allergies: Allergies[1] [...] 4 Other (Comment) -- None (Room air) [place] Warm;Dry -- -- None None None None Incapacitated RN and Pt education done Medication (See MAR) 08/23/242357 Alert (0) 4 Other (Comment) Other (Comment) None (Room air) [place] Warm;Dry Soft Active None None None None [...] - Before each treatment: Dialysis Machine No.: [id number] RO Machine Number: [id number] Dialyzer Lot No.: [id number] Tubing Lot Number: [id number] [employer] Secure: Yes Venous Parameters Set: Yes Arterial Parameters Set: Yes NS Bag: Yes Saline Line Double Clamped: Yes Dialyzer: Nipro Prime Volume (mL): 200 mL RO Machine Number: [id number] RO Machine Log Sheet Completed: Yes Machine Alarm Self Test: Completed, Passed (At 2016) (08/23/242015) Air Foam Detector: Tested, Proper Function, pH Reading Extracorporeal Circuit Tested for Integrity: Yes Machine Conductivity: 13.8 Manual Conductivity: 13.6 Manual Ph: 7.2 Bleach Test (Neg): Yes Bath Temperature: 36 ?C (96.8 ?F) Conductivity Meter Serial #: [id number] Machine Functioning Alarm Free? Yes Dialysis Bath: K+ (Potassium): 3 Ca+ (Calcium): 2.5 Na+ (Sodium): 137 HCO3 (Bicarb): 32 Bicarbonate Concentrate Lot No.: [id number] Acid Concentrate Lot No.: [id number] Chlorine Testing - Before each treatment and every 4 hours: Time On: 2024 Time Off: 2324 Treatment Goal: 1L Weight Height: 180.3 cm (5' 11) (08/23/241030) Weight: 88.5 kg (195 lb) (08/23/241030) BMI (Calculated): 27.21 (08/23/241030) 1st check: less than 0.1 ppm at: 2000 2nd check: less than 0.1 ppm at: 2240 3rd check: Not Applicable (if greater than [...] 60 600 Yes BFR increased, UF 57mL 08/23/24 2045 400 mL/min 570 ml/hr -160 mmHg 140 mmHg 60 600 Yes Pt tolerating tx, UF 204mL 08/23/24 2100 400 mL/min 570 ml/hr -160 mmHg 140 mmHg 70 600 Yes No adverse reaction observed, UF 332mL 08/23/24 2115 400 mL/min 570 ml/hr -160 mmHg 140 mmH (more content not included)... Normal [facility] Nursing Note Fistula to Lfa/wrist is warm to touch, secure messaging to primary Normal [facility] Nursing Note Blood sugar per patients omni pod 176 Normal [facility] Organism identificationOrder ed By: Laurie Elizalde on 08-23-2024 Microorganism identified Cx Nom (Unsp spec) Staphylococcus aureus Abnormal [facility] PROCALCITONIN TESTon 025 PROCALCITONIN 5.94 ng/mL High <0.07 [facility] Comment on above: Result Comment: THEODORA [place] COMMENTS: PCT <0.50 = Low risk of severe sepsis and/or septic shock. PCT >2.00 = High risk of severe sepsis and/or septic shock. Performed By: #### L [id number] #### Study Manager: RORO LUNDBERG ([id number]) [facility] ([address] Partial Thromboplast Timeon 08-23-2024 aPTT Coag (Bld) [Time] 28.3 s Normal 24.1-36.2 [facility] Comment on above: Performed By: #### M 100.636, L300.3900, L500.4050, L300.4310, L503.6005, L100.0100, M200.1000 ####[facility] [address] [place], [address] Phosphoruson 08-23-2024 Phosphate [Mass/Vol] 1.2 mg/dL Invalid Interpretation Code 2.7-4.5 [facility] Comment on above: Performed By: #### L 501.2300, L501.5200 ####[facility] [address] [place], [address] Platelet countOrdered By: Tito Elizalde on 08-23-2024 Platelets (Bld) [#/Vol] 250 10*3/uL 150-450 [facility] Potassium measurement (mass/ volume)Ordered By: Laurie Elizalde on 08-23-2024 Potassium (Unsp spec) [Mass/Vol] 3.6 mmol/L 3.3-5.1 [facility] Procalcitonin [Mass/Vol]on 0 08-23-2024 Interpretation and review of laboratory results Abnormal [facility] PCT <0.50 = Low risk of severe sepsis and/or septic shock. PCT >2.00 = High risk of severe sepsis and/or septic shock. [facility] Progress Noteon 08-23-2024 Progress Note Brief [...] mg, PO or IM for nausea/vomiting. Normal [facility] Protein Test strip Ql (U)Ord ered By: Laurie Elizalde on 08-23-2024 Protein Ql (U) 500 mg/dl High Negative [facility] Prothrombin Time w/INRon INR Coag (PPP) [Relative time] 1.1 {INR} Normal [facility] Comment on above: Performed By: #### M 100.636, L300.3900, L500.4050, L300.4310, L503.6005, L100.0100, M200.1000 ####[facility] [address] [place], [address] PT Coag (PPP) [Time] 14.7 s Normal 11.7-14.9 [facility] Comment on above: Performed By: #### M 100.636, L300.3900, L500.4050, L300.4310, L503.6005, L100.0100, M200.1000 ####[facility] [address] [place], [place], [id number] Prothrombin timeOrdered By: Laurie Elizalde on 08-23-2024 PT Coag (PPP) [Time] 14.7 s 11.7-14.9 [facility] RBC Auto (Bld) [#/Vol]Ordere d By: Laurie Elizalde on 08-23-2024 RBC (Bld) [#/Vol] 3.83 10*6/uL Low 4.6-6.2 [place] RESPIRATORY PATHOGENS PANEL BY PCRon 08-23-2024 RESPIRATORY [...] Detected ORDER COMMENTS: Methodology: Multiplex PCR Normal [facility] Comment on above: Performed By: #### L [id number] ####Study Manager: RORO LUNDBERG ([id number])[facility] ([facility])[address] [place] [address] Respiratory pathogens DNA an d RNA panel LAVERN+non-probe (Nph)on 08-23-2024 Adenovirus Not detected Not Detected [facility] B. pertussis DNA LAVERN+probe Ql (Unsp spec) Not detected Not Detected [facility] Bordetella parapertussis Not detected Not Detec sharan [facility] Chlamydia pneumoniae Not detected Not Detected [facility] Coronavirus 229E Not detected Not Detected [facility] Coronavirus HKU1 Not detected Not Detected [facility] Coronavirus NL63 Not detected Not Detected [facility] Coronavirus OC43 Not detected Not Detected [facility] FLUAV RNA LAVERN+non-probe Ql (Nph) Not detected Not Detected [facility] FLUBV RNA LAVERN+non-probe Ql (Nph) Not detected Not Detected [facility] Human Metapneumovirus Not detected Not Detected [facility] Human Rhinovirus/Enterovirus Not detected Not Detected [facility] Interpretation and review of laboratory results Normal [facility] Mycoplasma pneumoniae Not detected Not Detected [facility] Parainfluenza 1 Not detected Not Detected [facility] Parainfluenza 2 Not detected Not Detected [facility] Parainfluenza 3 Not detected Not Detected [facility] Parainfluenza 4 Not detected Not Detected [facility] Respiratory Syncytial Virus Not detected Not De tected [facility] SARS-CoV-2 (COVID-19) RNA LAVERN+non-probe Ql (Nph) Not detected Not Detected [facility] Methodology: Multiplex PCR [facility] SEDIMENTATION RATE, AUTOMATE Don 08-23-2024 SEDIMENTATION RATE, ERYTHROCYTE 30 mm/hr High 0-10 [facility] Comment on above: Performed By: #### L [id number] #### Study Manager: RORO LUNDBERG ([id number]) [facility] ([facility]) [address] [place] [address] Serum creatinine measurement (mass/volume)Ordered By: Laurie Elizalde on 08-23-2024 Creatinine [Mass/Vol] 8.87 mg/dL High 0.70-1.20 [facility] Comment on above: Critical Result(s) C alled at: 0139 by: MONET OLIVARES TO VENKATA CHILDS Results read back by same. Serum globulin measurementOr dered By: Laurie Elizalde on 08-23-2024 Globulin (S) [Mass/Vol] 3.0 g/dL 2.2-4.2 [facility] Serum glucose measurement (m ass/volume)Ordered By: Laurie Elizalde on 08-23-2024 Glucose [Mass/Vol] 220 mg/dL High 70-99 [facility] Serum or plasma alanine doshi otransferase (ALT) measurementOrdered By: Laurie Elizalde on 08-23-2024 ALT [Catalytic activity/Vol] 12 U/L <47 [facility] Serum or plasma albumin jessie urement (mass/volume)Ordered By: Laurie Elizalde on 08-23-2024 Albumin [Mass/Vol] 4.7 g/dL 3.5-5.0 [facility] Serum or plasma albumin/glob ulin mass ratioOrdered By: Laurie Elizalde on 08-23-2024 Albumin/Globulin [Mass ratio] 1.6 {ratio} 0.9-2.4 [facility] Serum or plasma alkaline kalie sphatase measurementOrdered By: Laurie Elizalde on 08-23-2024 ALP [Catalytic activity/Vol] 94 U/L 40-129 [facility] Serum or plasma calcium jessie urement (mass/volume)Ordered By: Laurie Elizalde on 08-23-2024 Calcium [Mass/Vol] 10.5 mg/dL 7.6-11.0 [facility] Serum or plasma urea nitroge n measurement (mass/volume)Ordered By: Lauire Elizalde on 08-23-2024 Urea nitrogen [Mass/Vol] 54 mg/dL High 4-19 [facility] Sodium levelOrdered By: Tacos Elizalde on 08-23-2024 Sodium [Moles/Vol] 135 mmol/L 133-145 [facility] Squamous epithelial cells de tection in urine sediment by light microscopyOrdered By: Laurie Elizalde on 08-23-2024 Epithelial cells.squamous LM Ql (Urine sed) 0 SEEN /hpf 0-5 [facility] THYROID STIMULATING HORMONEo n 08-23-2024 THYROID STIMULATING HORMONE 2.48 uIU/mL Normal 0.35-4. 94 [facility] Comment on above: Performed By: #### L [id number] #### Study Manager: RORO LUNDBERG ([id number]) [facility] ([facility]) [address] [place] [address] TSH Qnon 08-23-2024 Interpretation and review of laboratory results Normal [facility] Total proteinOrdered By: Farrah Elizalde on 08-23-2024 Protein [Mass/Vol] 7.6 g/dL 5.9-8.4 [facility] Urinalysis, Completeon 08-23 BACTERIA 0 SEEN Normal None Seen [facility] Comment on above: Order Comment: CLEAN CATCH Performed By: #### M 100.678, L400.0001, M100.2200 ####[facility] [address] [place], [address] EPI,SQUAMOUS 0 SEEN Normal 0-5 [facility] Comment on above: Order Comment: CLEAN CATCH Performed By: #### M 100.678, L400.0001, M100.2200 ####[facility] [address] [place], [address] Mucus Ql (Urine sed) [address] [facility] Comment on above: Order Comment: CLEAN CATCH Performed By: #### M 100.678, L400.0001, M100.2200 ####[facility] [address] [place], [address] RBC 0 SEEN Normal 0-5 [facility] Comment on above: Order Comment: CLEAN CATCH Performed By: #### M 100.678, L400.0001, M100.2200 ####[facility] [address] [place], [address] WBC 0 SEEN Normal 0-5 [facility] Comment on above: Order Comment: CLEAN CATCH Performed By: #### M 100.678, L400.0001, M100.2200 ####[facility] [address] [place], [address] Urine clarityOrdered By: Farrah Elizalde on 08-23-2024 Clarity (U) Clear Clear [facility] Urine color determinationOrd ered By: Laurie Elizalde on 08-23-2024 Color (U) Yellow Yellow [facility] Urine cultureOrdered By: Farrah Elizalde on 08-23-2024 Bacteria identified Cx Nom (U) Positive Abnormal [facility] Urine glucose detectionOrder ed By: Laurie Elizalde on 08-23-2024 Glucose Ql (U) 1000 mg/dl High Normal [facility] Urine leukocyte esterase det ection by dipstickOrdered By: Laurie Elizalde on 08-23-2024 Leukocyte esterase Test strip Ql (U) Negative Negative [facility] Urine pHOrdered By: Laurie sifuentes on 08-23-2024 pH (U) 7.0 [pH] 5.0 - 8.0 [facility] Urine sediment bacteria coun t by microscopy (number/high power field)Ordered By: Laurie Elizalde on 08-23-2024 Bacteria LM.HPF (Urine sed) [#/Area] 0 /[HPF] None Seen [facility] Urine specific gravity measu rementOrdered By: Laurie Elizalde on 08-23-2024 Specific gravity (U) [Rel density] 1.010 1.002-1.030 [facility] Urine urobilinogen measureme ntOrdered By: Laurie Elizalde on 08-23-2024 Urobilinogen Ql (U) Normal mg/dl Normal [facility] White blood cell (WBC) count Ordered By: Laurie Elizalde on 08-23-2024 WBC (Bld) [#/Vol] 26.1 10*3/uL High 4.4-11.0 [place] White blood cell countOrdere d By: Laurie Elizalde on 08-23-2024 White blood cell count 0 SEEN /hpf 0-5 [facility] XR CHEST 1 VIEWon 08-23-2024 XR [...] Electronically Signed Date/Time: 08/23/2024 1:40 PM EDT [facility] XR Chest Single viewon 08-23 No acute cardiopulmonary disease. Report Dictated on Electronically Signed By: Anirudh Christie MD Electronically Signed Date/Time: 08/23/2024 1:40 PM EDT [facility] Patient Name: FARRAH GONZALES : 1980 [...] of the chest are unremarkable as visualized. [facility] Anirudh Christie MD - 08/23/2024 Patient [...] Electronically Signed Date/Time: 08/23/2024 1:40 PM EDT [facility] Radiology Study observation (narrative) [facility] XR Chest Single viewOrdered By: Anirudh Christie on 08-23-2024 [facility] AV Fistula/Dialysis Graft Sc anon 08-19-2024 AV Fistula/Dialysis Graft Scan Normal [facility] Arterial study reportOrdered By: Garrison Valadez on 08-19-2024 Noninvasive arteriosclerosis study report [facility] [address] [place] [address] AV Fistula/Dialysis Graft Scan 08/19/24 1010 MR#: [id number] Acct: [id number] Name: LAURIE GONZALES Rep #:[id number] : 1980 44 From: Garrison Ricketts Attending Dr: LUCÍA Mcdermott Stat us: REG CLI Ordering Dr: Thalia Lea Date: Location: [facility] Sex: M C Admitted: Reason For [...] Physician: Kristal Sullivan Performed By: Lara Yanez RVT 08/19/24 1406 Date _ Garrison Valadez MD CC: LUCÍA Mcdermott; Dr. Kristal Sullivan MD ~ Date Dictated: 08/19/24 1010 Date Transcribed: 08/19/24 1406 Shuttle Van Driver: Signed [facility] Work Phone: CNCOon 08-18-2024 [facility] Letter Text Normal [facility] Gastroenterology Visit Repor ton 08-17-2024 Gastroenterology Visit Report Normal [facility] Absolute lymphocyte countOrd ered By: Eugenia London on 08-11-2024 Lymphocytes Auto (Unsp spec) [#/Vol] 1.47 10*3/uL 0.83-4.51 [facility] Absolute neutrophil countOrd ered By: Eugenia London on 08-11-2024 Neutrophils (Bld) [#/Vol] 8.2 10*3/uL High 2.0-7.7 [facility] Anion gap in Serum or Plasma Ordered By: Eugenia London on 08-11-2024 Anion gap [Moles/Vol] 27 mmol/L High 5-15 [facility] Automated lymphocyte count a s percentage of total leukocytesOrdered By: Eugenia London on 08-11-2024 Lymphocytes/100 WBC Auto (Unsp spec) 13.4 % Low 19-41 [facility] BUN/creatinine ratioOrdered By: Eugenia London on 08-11-2024 Urea nitrogen/Creatinine [Mass ratio] 7.7 mg/mg Low 10-20 [facility] Basophil percentageOrdered B y: Eugenia London on 08-11-2024 Basophils/100 WBC (Bld) 0.7 % 0-1 [facility] Bilirubin, totalOrdered By: Eugenia London on 08-11-2024 Bilirubin [Mass/Vol] 0.38 mg/dL 0.00-1.30 [facility] CBC W/Diff, Automatedon 07-29 Absolute Lymph 1.47 X10 3/uL Normal 0.83-4.51 [facility] Comment on above: Performed By: #### L 500.4050, L100.0100, L501.2300, L500.4100, L501.5200 ####[facility] [address] [place], [address] Absolute Neut 8.2 X10 3/uL High 2.0-7.7 [facility] Comment on above: Performed By: #### L 500.4050, L100.0100, L501.2300, L500.4100, L501.5200 ####[facility] [address] [place], [address] Basophils/100 WBC (Bld) 0.7 % Normal 0-1 [facility] Comment on above: Performed By: #### L 500.4050, L100.0100, L501.2300, L500.4100, L501.5200 ####[facility] [address] [place], [address] Eosinophils/100 WBC (Bld) 0.8 % Normal 0-5 [facility] Comment on above: Performed By: #### L 500.4050, L100.0100, L501.2300, L500.4100, L501.5200 ####[facility] [address] [place], [address] Erythrocyte distribution width (RBC) [Ratio] 13.0 % Normal 11.6-14.6 [facility] Comment on above: Performed By: #### L 500.4050, L100.0100, L501.2300, L500.4100, L501.5200 ####[facility] [address] [place], [address] Hematocrit (Bld) [Volume fraction] 34.8 % Low 40-54 [facility] Comment on above: Performed By: #### L 500.4050, L100.0100, L501.2300, L500.4100, L501.5200 ####[facility] [address] [place], [address] Hemoglobin (Bld) [Mass/Vol] 12.1 g/dL Low 13.0-16. 5 [facility] Comment on above: Performed By: #### L 500.4050, L100.0100, L501.2300, L500.4100, L501.5200 ####[facility] [address] [place], [address] IG% 0.400 Normal 0.0-0.9 [facility] Comment on above: Result Comment: IG% - Immature Granulocytes (promyelocytes, myelocytes andmetamyelocytes) > 1% indicates that a LEFT SHIFT is Present. Performed By: #### L 500.4050, L100.0100, L501.2300, L500.4100, L501.5200 ####[facility] [address] [place], [address] Lymphocytes/100 WBC (Bld) 13.4 % Low 19-41 [facility] Comment on above: Performed By: #### L 500.4050, L100.0100, L501.2300, L500.4100, L501.5200 ####[facility] [address] [place], [address] MCH (RBC) [Entitic mass] 31.3 pg Normal 27.0-32.0 [facility] Comment on above: Performed By: #### L 500.4050, L100.0100, L501.2300, L500.4100, L501.5200 ####[facility] [address] [place], [address] MCHC (RBC) [Mass/Vol] 34.8 g/dL Normal 32-36 [facility] Comment on above: Performed By: #### L 500.4050, L100.0100, L501.2300, L500.4100, L501.5200 ####[facility] [address] [place], [address] MCV (RBC) [Entitic vol] 89.9 fL Normal 80-94 [facility] Comment on above: Performed By: #### L 500.4050, L100.0100, L501.2300, L500.4100, L501.5200 ####[facility] [address] [place], [address] Monocytes/100 WBC (Bld) 9.6 % Normal 0-10 [facility] Comment on above: Performed By: #### L 500.4050, L100.0100, L501.2300, L500.4100, L501.5200 ####[facility] [address] [place], [address] Neutrophils/100 WBC (Bld) 75.1 % High 47-70 [facility] Comment on above: Performed By: #### L 500.4050, L100.0100, L501.2300, L500.4100, L501.5200 ####[facility] [address] [place], [address] Nucleated RBC (Bld) [#/Vol] 0 10*3/uL Normal 0-5 [facility] Comment on above: Performed By: #### L 500.4050, L100.0100, L501.2300, L500.4100, L501.5200 ####[facility] [address] [place], [address] Platelet mean volume (Bld) [Entitic vol] 9.4 fL Normal 6.2-12.0 [facility] Comment on above: Performed By: #### L 500.4050, L100.0100, L501.2300, L500.4100, L501.5200 ####[facility] [address] [place], [address] Platelets (Bld) [#/Vol] 302 10*3/uL Normal 150-450 [facility] Comment on above: Performed By: #### L 500.4050, L100.0100, L501.2300, L500.4100, L501.5200 ####[facility] [address] [place], [address] RBC (Bld) [#/Vol] 3.87 10*6/uL Low 4.6-6.2 [place] Comment on above: Performed By: #### L 500.4050, L100.0100, L501.2300, L500.4100, L501.5200 ####[facility] [address] [place], [address] RDW SD 42.2 fl Normal 35.1-43.9 [facility] Comment on above: Performed By: #### L 500.4050, L100.0100, L501.2300, L500.4100, L501.5200 ####[facility] [address] [place], [address] WBC (Bld) [#/Vol] 10.9 10*3/uL Normal 4.4-11.0 [place] Comment on above: Performed By: #### L 500.4050, L100.0100, L501.2300, L500.4100, L501.5200 ####[facility] [address] [place], [address] Calculated very low density lipoprotein (VLDL) cholesterol measurementOrdered By: Eugenia London on 08-11-2024 Calculated very low density lipoprotein (VLDL) cholesterol measurement 29 mg/dL 5-40 [facility] Carbon dioxide, total [Moles /volume] in Central venous bloodOrdered By: Eugenia London on 08-11-2024 CO2 [Moles/Vol] 20.8 mmol/L Low 21.0-32.0 [facility] Cardiovascular stress test r eportOrdered By: Jordy Garcia on 08-11-2024 Study report [facility] [address] [place] [address] MR#: [id number] Acct: [id number] Name: LAURIE GONZALES Nelson Rep #: [id number] : 1980 44 From: Jordy Garcia MD Primary Care: Dr. Kristal Sullivan MD Status : ADM WANDA Referring Dr: [place]: Nelson Mendoza Stress Test Report Pharmacologic myocardial perfusion stress [...] Date Dictated: 08/11/24 1243 Date Transcribed: 08/11/241242 Shuttle Van Driver: [place] Signed [facility] Work Phone: Chloride assayOrdered By: Pradeep London on 08-11-2024 Chloride [Moles/Vol] 89 mmol/L Low 98-108 [facility] Comprehensive Metabolic Prof ilon 08-11-2024 Albumin [Mass/Vol] 4.3 g/dL Normal 3.5-5.0 [facility] Comment on above: Performed By: #### L 500.4050, L100.0100, L501.2300, L500.4100, L501.5200 ####[facility] [address] [place], [place], [address] Albumin/Globulin [Mass ratio] 1.6 {ratio} Normal 0.9-2.4 [facility] Comment on above: Performed By: #### L 500.4050, L100.0100, L501.2300, L500.4100, L501.5200 ####[facility] [address] [place], [address] ALK PHOS 81 U/L Normal 40-129 [facility] Comment on above: Performed By: #### L 500.4050, L100.0100, L501.2300, L500.4100, L501.5200 ####[facility] [address] [place], [address] ALT [Catalytic activity/Vol] 10 U/L Normal <=46 [facility] Comment on above: Performed By: #### L 500.4050, L100.0100, L501.2300, L500.4100, L501.5200 ####[facility] [address] [place], [address] AST [Catalytic activity/Vol] 18 U/L Normal <=37 [facility] Comment on above: Performed By: #### L 500.4050, L100.0100, L501.2300, L500.4100, L501.5200 ####[facility] [address] [place], [address] Bilirubin [Mass/Vol] 0.38 mg/dL Normal 0.00-1.30 [facility] Comment on above: Performed By: #### L 500.4050, L100.0100, L501.2300, L500.4100, L501.5200 ####[facility] [address] [place], [address] BUN/CRE 7.7 RATIO Low 10-20 [facility] Comment on above: Performed By: #### L 500.4050, L100.0100, L501.2300, L500.4100, L501.5200 ####[facility] [address] [place], [address] Calcium [Mass/Vol] 9.6 mg/dL Normal 7.6-11.0 [facility] Comment on above: Performed By: #### L 500.4050, L100.0100, L501.2300, L500.4100, L501.5200 ####[facility] [address] [place], [address] Chloride [Moles/Vol] 89 mmol/L Low 98-108 [facility] Comment on above: Performed By: #### L 500.4050, L100.0100, L501.2300, L500.4100, L501.5200 ####[facility] [address] [place], [address] CO2 [Moles/Vol] 20.8 mmol/L Low 21.0-32.0 [facility] Comment on above: Performed By: #### L 500.4050, L100.0100, L501.2300, L500.4100, L501.5200 ####[facility] [address] [place], [address] Creatinine [Mass/Vol] 7.33 mg/dL High 0.70-1.20 [facility] Comment on above: Performed By: #### L 500.4050, L100.0100, L501.2300, L500.4100, L501.5200 ####[facility] [address] [place], [address] ECRCL 13.98 ml/min Low 50-250 [facility] Comment on above: Performed By: #### L 500.4050, L100.0100, L501.2300, L500.4100, L501.5200 ####[facility] [address] [place], [address] GAP 27 High 5-15 [facility] Comment on above: Performed By: #### L 500.4050, L100.0100, L501.2300, L500.4100, L501.5200 ####[facility] [address] [place], [address] GFR/1.73 sq M.predicted among non-blacks MDRD (S/P/Bld) [Vol rate/Area] 9 mL/min/{1.73_m2} Low >60 [facility] Comment on above: Result Comment: mL/m in/1.73m2 CKD-EPI Creatinine Equation (2020) Performed By: #### L 500.4050, L100.0100, L501.2300, L500.4100, L501.5200 ####[facility] [address] [place], [address] Globulin (S) [Mass/Vol] 2.7 g/dL Normal 2.2-4.2 [facility] Comment on above: Performed By: #### L 500.4050, L100.0100, L501.2300, L500.4100, L501.5200 ####[facility] [address] [place], [address] Glucose [Mass/Vol] 183 mg/dL High 70-99 [facility] Comment on above: Performed By: #### L 500.4050, L100.0100, L501.2300, L500.4100, L501.5200 ####[facility] [address] [place], [address] Potassium [Moles/Vol] 4.4 mmol/L Normal 3.3-5.1 [facility] Comment on above: Performed By: #### L 500.4050, L100.0100, L501.2300, L500.4100, L501.5200 ####[facility] [address] [place], [address] Sodium [Moles/Vol] 136 mmol/L Normal 133-145 [facility] Comment on above: Performed By: #### L 500.4050, L100.0100, L501.2300, L500.4100, L501.5200 ####[facility] [address] [place], [place], [address] T PROT 7.1 g/dL Normal 5.9-8.4 [facility] Comment on above: Performed By: #### L 500.4050, L100.0100, L501.2300, L500.4100, L501.5200 ####[facility] [address] [place], [address] Urea nitrogen [Mass/Vol] 56 mg/dL High - [facility] Comment on above: Performed By: #### L 500.4050, L100.0100, L501.2300, L500.4100, L501.5200 ####[facility] [address] [place], [place], [id number] Consultation - Nephrologyon 08-11-2024 Consultation - Nephrology Normal [facility] Discharge Instructionon 07-29 Discharge Instruction Normal [facility] Eosinophil percentageOrdered By: Eugenia London on 08-11-2024 Eosinophils/100 WBC (Bld) 0.8 % 0-5 [facility] Erythrocyte distribution wid th ratioOrdered By: Eugenia London on 08-11-2024 Erythrocyte distribution width (RBC) [Ratio] 13.0 % 11.6-14.6 [facility] Erythrocyte distribution wid th standard deviationOrdered By: Eugenia London on 08-11-2024 Erythrocyte distribution width (RBC) [Ratio] 42.2 fl 35.1-43.9 [facility] Glomerular filtration rate ( GFR) estimation/1.73 sq m using serum, plasma, or whole bOrdered By: Eugenia London on 08-11-2024 GFR/1.73 sq M.predicted among non-blacks MDRD (S/P/Bld) [Vol rate/Area] 9 mL/min/{1.73_m2} Low >60 [facility] Comment on above: mL/min/1.73m2 CKD-EP I Creatinine Equation (2020) Hematocrit Auto (Bld) [Volum e fraction]Ordered By: Eugenia London on 08-11-2024 Hematocrit (Bld) [Volume fraction] 34.8 % Low 40-54 [facility] Hemoglobin A1con 08-11-2024 HbA1c (Bld) [Mass fraction] 7.2 % High <=5.6 [facility] Comment on above: Result Comment: Norm al < 5.7 % Prediabetic 5.7 - 6.4 % Diabetic >or= 6.5 % Please note range changes. Performed By: #### L 501.9985 ####[facility] [address] [place], [place], [id number] Hemoglobin A1c percentageOrd ered By: Eugenia London on 08-11-2024 HbA1c (Bld) [Mass fraction] 7.2 % High <5.7 [facility] Comment on above: Normal < 5.7 % Predi abetic 5.7 - 6.4 % Diabetic >or= 6.5 % Please note range changes. Hemoglobin measurementOrdere d By: Eugenia London on 08-11-2024 Hemoglobin (Bld) [Mass/Vol] 12.1 g/dL Low 13.0-16. 5 [facility] Immature granulocytes/100 WB C Auto (Bld)Ordered By: Eugenia London on 08-11-2024 Immature granulocytes/100 WBC (Bld) 0.400 % 0.0-0.9 [facility] Comment on above: IG% - Immature Granu locytes (promyelocytes, myelocytes and metamyelocytes) > 1% indicates that a LEFT SHIFT is Present. L499.0043on 08-11-2024 Trop T High Sen 208 ng/L Invalid Interpretation Code <=22 [facility] Comment on above: Result Comment: Crit ical Result(s) Called at:0007 by:??MONET FRENCH Results read back by same. Performed By: #### L 499.0043 ####[facility] [address] [place], [place], [id number] LDL calc ser/plasOrdered By: Eugenia London on 08-11-2024 Cholesterol in LDL [Mass/Vol] 61 mg/dL [facility] Comment on above: Kurklucklw=915-255 m g/dL & Higher Uduq=799 mg/dL or greater Laboratory - Chemistry and C hemistry - challengeOrdered By: Eugenia London on 08-11-2024 AST [Catalytic activity/Vol] 18 U/L <38 [facility] Lipaseon 08-11-2024 Lipase [Catalytic activity/Vol] 25 U/L Normal 13-75 [facility] Comment on above: Result Comment: Surekha walsh note:LIPASE revised reference range effective 22.New Lipase methodology. Expected to produce lower valuesthan the previous assay method.NEW Reference Range: 13 - 75 U/L Performed By: #### L 501.2450 ####[facility] [address] [place], [address] Lipid Profileon 08-11-2024 CHOL:HDL 2.65 Normal [facility] Comment on above: Performed By: #### L 500.4050, L100.0100, L501.2300, L500.4100, L501.5200 ####[facility] [address] [place], [address] Cholesterol [Mass/Vol] 145 mg/dL Normal <=200 [facility] Comment on above: Result Comment: Chol esterol level, Desirable <200 mg/dLBorderline high cholesterol 200-239 mg/dLHigh cholesterol >=240 mg/dLRecommendations of the NCEP Adult Treatment Panel for thefollowing risk-cutoff thresholds for the [place] American[place]. Performed By: #### L 500.4050, L100.0100, L501.2300, L500.4100, L501.5200 ####[facility] [address] [place], [address] Cholesterol in HDL [Mass/Vol] 55 mg/dL Normal [facility] Comment on above: Result Comment: Naomi onal Cholesterol Education Program (NCEP) guidelines:<40 mg/dL: Low HDL-cholesterol (major risk factor for CHD)>= 60 mg/dL: High HDL-cholesterol (negative risk factor forCHD)HDL-cholesterol is affected by a number of factors, e.g.smoking, exercise, hormones, sex and age. Performed By: #### L 500.4050, L100.0100, L501.2300, L500.4100, L501.5200 ####[facility] [address] [place], [address] Cholesterol in LDL [Mass/Vol] 61 mg/dL Normal [facility] Comment on above: Result Comment: Bord irkvgn=390-577 mg/dL Higher Rzwc=064 mg/dL or greater Performed By: #### L 500.4050, L100.0100, L501.2300, L500.4100, L501.5200 ####[facility] [address] [place], [address] Cholesterol in VLDL [Mass/Vol] 29 mg/dL Normal 5-40 [facility] Comment on above: Performed By: #### L 500.4050, L100.0100, L501.2300, L500.4100, L501.5200 ####[facility] [address] [place], [address] Triglyceride [Mass/Vol] 146 mg/dL Normal [facility] Comment on above: Result Comment: The drugs N-Acetylcysteine and Metamizole may falselydepress this assay.Normal range: <150 mg/dLBorderline High: 150-199 mg/dLHigh: 200-499 mg/dLVery High: >500 mg/dL Performed By: #### L 500.4050, L100.0100, L501.2300, L500.4100, L501.5200 ####[facility] [address] [place], [address] MCV (mean corpuscular volume ) determinationOrdered By: Eugenia London on 08-11-2024 MCV (RBC) [Entitic vol] 89.9 fL 80-94 [facility] Magnesiumon 08-11-2024 Magnesium [Mass/Vol] 2.6 mg/dL High 1.5-2.2 [facility] Comment on above: Performed By: #### L 500.4050, L100.0100, L501.2300, L500.4100, L501.5200 ####[facility] [address] [place], [address] Magnesium measurement (mass/ volume)Ordered By: Euegnia London on 08-11-2024 Magnesium (Unsp spec) [Mass/Vol] 2.6 mg/dL High 1.5-2.2 [facility] Mean corpuscular hemoglobin (MCH) determinationOrdered By: Eugenia London on 08-11-2024 MCH (RBC) [Entitic mass] 31.3 pg 27.0-32.0 [facility] Mean corpuscular hemoglobin concentration (MCHC) determinationOrdered By: Eugenia London on 08-11-2024 MCHC (RBC) [Mass/Vol] 34.8 g/dL 32-36 [facility] Mean platelet volume determi nationOrdered By: Eugenia London on 08-11-2024 Platelet mean volume (Bld) [Entitic vol] 9.4 fL 6.2-12.0 [facility] Monocyte percentageOrdered B y: Eugenia London on 08-11-2024 Monocytes/100 WBC (Bld) 9.6 % 0-10 [facility] Neutrophil percentageOrdered By: Eugenia London on 08-11-2024 Neutrophils/100 WBC (Bld) 75.1 % High 47-70 [facility] No Panel InformationOrdered By: Eugenia London on 08-11-2024 18 U/L <38 [facility] Nucleated red blood cell per centageOrdered By: Eugenia London on 08-11-2024 Nucleated RBC/100 WBC (Bld) [Ratio] 0 % 0-5 [facility] Phosphoruson 08-11-2024 Phosphate [Mass/Vol] 6.8 mg/dL High 2.7-4.5 [facility] Comment on above: Performed By: #### L 500.4050, L100.0100, L501.2300, L500.4100, L501.5200 ####[facility] [address] [place], [address] Platelet countOrdered By: Pradeep London on 08-11-2024 Platelets (Bld) [#/Vol] 302 10*3/uL 150-450 [facility] Potassium measurement (mass/ volume)Ordered By: Eugenia London on 08-11-2024 Potassium (Unsp spec) [Mass/Vol] 4.4 mmol/L 3.3-5.1 [facility] RBC Auto (Bld) [#/Vol]Ordere d By: Eugenia London on 08-11-2024 RBC (Bld) [#/Vol] 3.87 10*6/uL Low 4.6-6.2 [place] Screening total cholesterol/ high density lipoprotein (HDL) cholesterol ratioOrdered By: Eugenia London on 08-11-2024 Cholesterol.total/Cholester ol in HDL [Mass ratio] 2.65 {ratio} [facility] Serum creatinine measurement (mass/volume)Ordered By: Eugenia London on 08-11-2024 Creatinine [Mass/Vol] 7.33 mg/dL High 0.70-1.20 [facility] Serum globulin measurementOr dered By: Eugenia London on 08-11-2024 Globulin (S) [Mass/Vol] 2.7 g/dL 2.2-4.2 [facility] Serum glucose measurement (m ass/volume)Ordered By: Eugenia London on 08-11-2024 Glucose [Mass/Vol] 183 mg/dL High 70-99 [facility] Serum or plasma alanine doshi otransferase (ALT) measurementOrdered By: Eugenia London on 08-11-2024 ALT [Catalytic activity/Vol] 10 U/L <47 [facility] Serum or plasma albumin jessie urement (mass/volume)Ordered By: Eugenia London on 08-11-2024 Albumin [Mass/Vol] 4.3 g/dL 3.5-5.0 [facility] Serum or plasma albumin/glob ulin mass ratioOrdered By: Eugenia London on 08-11-2024 Albumin/Globulin [Mass ratio] 1.6 {ratio} 0.9-2.4 [facility] Serum or plasma alkaline kalie sphatase measurementOrdered By: Eugenia London on 08-11-2024 ALP [Catalytic activity/Vol] 81 U/L 40-129 [facility] Serum or plasma calcium jessie urement (mass/volume)Ordered By: Eugenia London on 08-11-2024 Calcium [Mass/Vol] 9.6 mg/dL 7.6-11.0 [facility] Serum or plasma cholesterol in HDL measurement (mass/volume)Ordered By: Eugenia London on 08-11-2024 Cholesterol in HDL [Mass/Vol] 55 mg/dL >40 [facility] Comment on above: National Cholesterol Education Program (NCEP) guidelines:<40 mg/dL: Low HDL-cholesterol (major risk factor for CHD)>= 60 mg/dL: High HDL-cholesterol (negative risk factor for CHD)HDL-cholesterol is affected by a number of factors, e.g. smoking, exercise, hormones, sex and age. Serum or plasma cholesterol measurement (mass/volume)Ordered By: Eugenia London on 08-11-2024 Cholesterol [Mass/Vol] 145 mg/dL <201 [facility] Comment on above: Cholesterol level, D esirable <200 mg/dLBorderline high cholesterol 200-239 mg/dLHigh cholesterol >=240 mg/dLRecommendations of the NCEP Adult Treatment Panel for the following risk-cutoff thresholds for the [place] population. Serum or plasma urea nitroge n measurement (mass/volume)Ordered By: Eugenia London on 08-11-2024 Urea nitrogen [Mass/Vol] 56 mg/dL High 4-19 [facility] Sodium levelOrdered By: Fatoumata London on 08-11-2024 Sodium [Moles/Vol] 136 mmol/L 133-145 [facility] Stress Reporton 08-11-2024 Stress Report Normal [facility] Total proteinOrdered By: Jolly London on 08-11-2024 Protein [Mass/Vol] 7.1 g/dL 5.9-8.4 [facility] Triglycerides measurementOrd ered By: Eugenia London on 08-11-2024 Triglyceride [Mass/Vol] 146 mg/dL <199 [facility] Comment on above: The drugs N-Acetylcy steine and Metamizole may falsely depress this assay. Normal range: <150 mg/dLBorderline High: 150-199 mg/dLHigh: 200-499 mg/dLVery High: >500 mg/dL White blood cell (WBC) count Ordered By: Eugenia London on 08-11-2024 WBC (Bld) [#/Vol] 10.9 10*3/uL 4.4-11.0 [place] 12 Lead EKGon 08-10-2024 12 Lead EKG Normal [facility] 12 Lead EKG Normal [facility] 12 Lead EKG Normal [facility] Absolute lymphocyte countOrd ered By: Jace Yanes on 08-10-2024 Lymphocytes Auto (Unsp spec) [#/Vol] 1.39 10*3/uL 0.83-4.51 [facility] Absolute neutrophil countOrd ered By: Jace Yanes on 08-10-2024 Neutrophils (Bld) [#/Vol] 8.9 10*3/uL High 2.0-7.7 [facility] Activated partial thrombopla stin time (aPTT) in platelet poor plasma by coagulation aOrdered By: Jace Yanes on 08-10-2024 aPTT Coag (PPP) [Time] 24.5 s 24.1-36.2 [facility] Anion gap in Serum or Plasma Ordered By: Jace Yanes on 08-10-2024 Anion gap [Moles/Vol] 26 mmol/L High 5-15 [facility] Automated lymphocyte count a s percentage of total leukocytesOrdered By: Jace Yanes on 08-10-2024 Lymphocytes/100 WBC Auto (Unsp spec) 12.1 % Low 19-41 [facility] BUN/creatinine ratioOrdered By: Jace Yanes on 08-10-2024 Urea nitrogen/Creatinine [Mass ratio] 7.3 mg/mg Low 10-20 [facility] Basic Metabolic Profile (BMP )on 08-10-2024 BUN/CRE 7.3 RATIO Low 10- [facility] Comment on above: Performed By: #### L 501.4021, L300.3900, L100.0100, L500.2500, L300.4310 ####[facility] [address] [place], [address] Calcium [Mass/Vol] 11.0 mg/dL Normal 7.6-11.0 [facility] Comment on above: Performed By: #### L 501.4021, L300.3900, L100.0100, L500.2500, L300.4310 ####[facility] [address] [place], [address] Chloride [Moles/Vol] 91 mmol/L Low 98-108 [facility] Comment on above: Performed By: #### L 501.4021, L300.3900, L100.0100, L500.2500, L300.4310 ####[facility] [address] [place], [address] CO2 [Moles/Vol] 20.8 mmol/L Low 21.0-32.0 [facility] Comment on above: Performed By: #### L 501.4021, L300.3900, L100.0100, L500.2500, L300.4310 ####[facility] [address] [place], [address] Creatinine [Mass/Vol] 6.57 mg/dL High 0.70-1.20 [facility] Comment on above: Performed By: #### L 501.4021, L300.3900, L100.0100, L500.2500, L300.4310 ####[facility] [address] [place], [address] ECRCL 15.60 ml/min Low 50-250 [facility] Comment on above: Performed By: #### L 501.4021, L300.3900, L100.0100, L500.2500, L300.4310 ####[facility] [address] [place], [address] GAP 26 High 5-15 [facility] Comment on above: Performed By: #### L 501.4021, L300.3900, L100.0100, L500.2500, L300.4310 ####[facility] [address] [place], [address] GFR/1.73 sq M.predicted among non-blacks MDRD (S/P/Bld) [Vol rate/Area] 10 mL/min/{1.73_m2} Low >60 [facility] Comment on above: Result Comment: mL/m in/1.73m2 CKD-EPI Creatinine Equation (2020) Performed By: #### L 501.4021, L300.3900, L100.0100, L500.2500, L300.4310 ####[facility] [address] [place], [address] Glucose [Mass/Vol] 118 mg/dL High 70-99 [facility] Comment on above: Performed By: #### L 501.4021, L300.3900, L100.0100, L500.2500, L300.4310 ####[facility] [address] [place], [address] Potassium [Moles/Vol] 4.0 mmol/L Normal 3.3-5.1 [facility] Comment on above: Performed By: #### L 501.4021, L300.3900, L100.0100, L500.2500, L300.4310 ####[facility] [address] [place], [address] Sodium [Moles/Vol] 138 mmol/L Normal 133-145 [facility] Comment on above: Performed By: #### L 501.4021, L300.3900, L100.0100, L500.2500, L300.4310 ####[facility] [address] [place], [address] Urea nitrogen [Mass/Vol] 48 mg/dL High 4-19 [facility] Comment on above: Performed By: #### L 501.4021, L300.3900, L100.0100, L500.2500, L300.4310 ####[facility] [address] [place], [address] Basophil percentageOrdered B y: Jace Yanes on 08-10-2024 Basophils/100 WBC (Bld) 0.6 % 0-1 [facility] CBC W/Diff, Automatedon 07-29-2024 Absolute Lymph 1.39 X10 3/uL Normal 0.83-4.51 [facility] Comment on above: Performed By: #### L 501.4021, L300.3900, L100.0100, L500.2500, L300.4310 ####[facility] [address] [place], [address] Absolute Neut 8.9 X10 3/uL High 2.0-7.7 [facility] Comment on above: Performed By: #### L 501.4021, L300.3900, L100.0100, L500.2500, L300.4310 ####[facility] [address] [place], [address] Basophils/100 WBC (Bld) 0.6 % Normal 0-1 [facility] Comment on above: Performed By: #### L 501.4021, L300.3900, L100.0100, L500.2500, L300.4310 ####[facility] [address] [place], [address] Eosinophils/100 WBC (Bld) 1.0 % Normal 0-5 [facility] Comment on above: Performed By: #### L 501.4021, L300.3900, L100.0100, L500.2500, L300.4310 ####[facility] [address] [place], [address] Erythrocyte distribution width (RBC) [Ratio] 12.8 % Normal 11.6-14.6 [facility] Comment on above: Performed By: #### L 501.4021, L300.3900, L100.0100, L500.2500, L300.4310 ####[facility] [address] [place], [address] Hematocrit (Bld) [Volume fraction] 39.0 % Low 40-54 [facility] Comment on above: Performed By: #### L 501.4021, L300.3900, L100.0100, L500.2500, L300.4310 ####[facility] [address] [place], [address] Hemoglobin (Bld) [Mass/Vol] 13.6 g/dL Normal 13.0-16. 5 [facility] Comment on above: Performed By: #### L 501.4021, L300.3900, L100.0100, L500.2500, L300.4310 ####[facility] [address] [place], [address] IG% 0.500 Normal 0.0-0.9 [facility] Comment on above: Result Comment: IG% - Immature Granulocytes (promyelocytes, myelocytes andmetamyelocytes) > 1% indicates that a LEFT SHIFT is Present. Performed By: #### L 501.4021, L300.3900, L100.0100, L500.2500, L300.4310 ####[facility] [address] [place], [address] Lymphocytes/100 WBC (Bld) 12.1 % Low 19-41 [facility] Comment on above: Performed By: #### L 501.4021, L300.3900, L100.0100, L500.2500, L300.4310 ####[facility] [address] [place], [address] MCH (RBC) [Entitic mass] 30.8 pg Normal 27.0-32.0 [facility] Comment on above: Performed By: #### L 501.4021, L300.3900, L100.0100, L500.2500, L300.4310 ####[facility] [address] [place], [address] MCHC (RBC) [Mass/Vol] 34.9 g/dL Normal 32-36 [facility] Comment on above: Performed By: #### L 501.4021, L300.3900, L100.0100, L500.2500, L300.4310 ####[facility] [address] [place], [address] MCV (RBC) [Entitic vol] 88.2 fL Normal 80-94 [facility] Comment on above: Performed By: #### L 501.4021, L300.3900, L100.0100, L500.2500, L300.4310 ####[facility] [address] [place], [address] Monocytes/100 WBC (Bld) 8.3 % Normal 0-10 [facility] Comment on above: Performed By: #### L 501.4021, L300.3900, L100.0100, L500.2500, L300.4310 ####[facility] [address] [place], [address] Neutrophils/100 WBC (Bld) 77.5 % High 47-70 [facility] Comment on above: Performed By: #### L 501.4021, L300.3900, L100.0100, L500.2500, L300.4310 ####[facility] [address] [place], [address] Nucleated RBC (Bld) [#/Vol] 0 10*3/uL Normal 0-5 [facility] Comment on above: Performed By: #### L 501.4021, L300.3900, L100.0100, L500.2500, L300.4310 ####[facility] [address] [place], [address] Platelet mean volume (Bld) [Entitic vol] 9.2 fL Normal 6.2-12.0 [facility] Comment on above: Performed By: #### L 501.4021, L300.3900, L100.0100, L500.2500, L300.4310 ####[facility] [address] [place], [address] Platelets (Bld) [#/Vol] 359 10*3/uL Normal 150-450 [facility] Comment on above: Performed By: #### L 501.4021, L300.3900, L100.0100, L500.2500, L300.4310 ####[facility] [address] [place], [address] RBC (Bld) [#/Vol] 4.42 10*6/uL Low 4.6-6.2 [facility] Comment on above: Performed By: #### L 501.4021, L300.3900, L100.0100, L500.2500, L300.4310 ####[facility] [address] [place], [address] RDW SD 41.7 fl Normal 35.1-43.9 [facility] Comment on above: Performed By: #### L 501.4021, L300.3900, L100.0100, L500.2500, L300.4310 ####[facility] [address] [place], [address] WBC (Bld) [#/Vol] 11.5 10*3/uL High 4.4-11.0 [facility] Comment on above: Performed By: #### L 501.4021, L300.3900, L100.0100, L500.2500, L300.4310 ####[facility] [address] [place], [address] CTA Chest W/WO Contraston CTA Chest W/WO Contrast Normal [facility] Carbon dioxide, total [Moles /volume] in Central venous bloodOrdered By: Jace Yanes on 08-10-2024 CO2 [Moles/Vol] 20.8 mmol/L Low 21.0-32.0 [facility] Chest PA and Lateralon 08-10 Chest PA and Lateral Normal [facility] Chloride assayOrdered By: [place] Yanes on 08-10-2024 Chloride [Moles/Vol] 91 mmol/L Low 98-108 [facility] Emergency Department Summary on 08-10-2024 Emergency Department Summary Normal [facility] Eosinophil percentageOrdered By: Jace Yanes on 08-10-2024 Eosinophils/100 WBC (Bld) 1.0 % 0-5 [facility] Erythrocyte distribution wid th ratioOrdered By: Jace Yanes on 08-10-2024 Erythrocyte distribution width (RBC) [Ratio] 12.8 % 11.6-14.6 [facility] Erythrocyte distribution wid th standard deviationOrdered By: Jace Yanes on 08-10-2024 Erythrocyte distribution width (RBC) [Ratio] 41.7 fl 35.1-43.9 [facility] Glomerular filtration rate ( GFR) estimation/1.73 sq m using serum, plasma, or whole bOrdered By: Jace Yanes on 08-10-2024 GFR/1.73 sq M.predicted among non-blacks MDRD (S/P/Bld) [Vol rate/Area] 10 mL/min/{1.73_m2} Low >60 [facility] Comment on above: mL/min/1.73m2 CKD-EP I Creatinine Equation (2020) H AND P Exam - [place] 08-10-2024 H&P Exam - Hospitalist Normal [facility] Hematocrit Auto (Bld) [Volum e fraction]Ordered By: Jace Yanes on 08-10-2024 Hematocrit (Bld) [Volume fraction] 39.0 % Low 40-54 [facility] Hemoglobin measurementOrdere d By: Jace Yanes on 08-10-2024 Hemoglobin (Bld) [Mass/Vol] 13.6 g/dL 13.0-16. 5 [facility] Immature granulocytes/100 WB C Auto (Bld)Ordered By: Jace Yaens on 08-10-2024 Immature granulocytes/100 WBC (Bld) 0.500 % 0.0-0.9 [facility] Comment on above: IG% - Immature Granu locytes (promyelocytes, myelocytes and metamyelocytes) > 1% indicates that a LEFT SHIFT is Present. International normalized rat io (INR) calculationOrdered By: Jace Yanes on 08-10-2024 INR Coag (Bld) [Relative time] 0.9 {INR} [facility] L499.0042on 08-10-2024 Trop T High Sen 193 ng/L Invalid Interpretation Code <=22 [facility] Comment on above: Result Comment: Crit ical Result(s) Called at:2226 by:??MONET FONG Results read back by same. Performed By: #### L 499.0042 ####[facility] [address] [place], [address] L501.4021on 08-10-2024 Trop T High Sen 211 ng/L Invalid Interpretation Code <=22 [facility] Comment on above: Result Comment: Crit ical Result(s) Called ACOLE at: 2114 by:JEY??Results read back by same. Performed By: #### L 501.4021, L300.3900, L100.0100, L500.2500, L300.4310 ####[facility] [address] [facility] [place], [address] Lipase measurementOrdered By : Eugenia oLndon on 08-10-2024 Lipase [Catalytic activity/Vol] 25 U/L 13-75 [facility] Comment on above: Please note:LIPASE r evised reference range effective 22. New Lipase methodology. Expected to produce lower values than the previous assay method. NEW Reference Range: 13 - 75 U/L MCV (mean corpuscular volume ) determinationOrdered By: Jace Yanes on 08-10-2024 MCV (RBC) [Entitic vol] 88.2 fL 80-94 [facility] Mean corpuscular hemoglobin (MCH) determinationOrdered By: Jace Yanes on 08-10-2024 MCH (RBC) [Entitic mass] 30.8 pg 27.0-32.0 [facility] Mean corpuscular hemoglobin concentration (MCHC) determinationOrdered By: Jace Yanes on 08-10-2024 MCHC (RBC) [Mass/Vol] 34.9 g/dL 32-36 [facility] Mean platelet volume determi nationOrdered By: Jace Yanes on 08-10-2024 Platelet mean volume (Bld) [Entitic vol] 9.2 fL 6.2-12.0 [facility] Monocyte percentageOrdered B y: Jace Yanes on 08-10-2024 Monocytes/100 WBC (Bld) 8.3 % 0-10 [facility] Neutrophil percentageOrdered By: Jace Yanes on 08-10-2024 Neutrophils/100 WBC (Bld) 77.5 % High 47-70 [facility] Nucleated red blood cell per centageOrdered By: Jace Yanes on 08-10-2024 Nucleated RBC/100 WBC (Bld) [Ratio] 0 % 0-5 [facility] Partial Thromboplast Timeon 08-10-2024 aPTT Coag (Bld) [Time] 24.5 s Normal 24.1-36.2 [facility] Comment on above: Performed By: #### L 501.4021, L300.3900, L100.0100, L500.2500, L300.4310 ####[facility] [address] [place], [address] Platelet countOrdered By: Richmond Yanes on 08-10-2024 Platelets (Bld) [#/Vol] 359 10*3/uL 150-450 [facility] Potassium measurement (mass/ volume)Ordered By: Jace Yanes on 08-10-2024 Potassium (Unsp spec) [Mass/Vol] 4.0 mmol/L 3.3-5.1 [facility] Prothrombin Time w/INRon INR Coag (PPP) [Relative time] 0.9 {INR} Normal [facility] Comment on above: Performed By: #### L 501.4021, L300.3900, L100.0100, L500.2500, L300.4310 ####[facility] [address] [place], [address] PT Coag (PPP) [Time] 12.7 s Normal 11.7-14.9 [facility] Comment on above: Performed By: #### L 501.4021, L300.3900, L100.0100, L500.2500, L300.4310 ####[facility] [address] [place], [place], [id number] Prothrombin timeOrdered By: Jace Yanes on 08-10-2024 PT Coag (PPP) [Time] 12.7 s 11.7-14.9 [facility] RBC Auto (Bld) [#/Vol]Ordere d By: Jace Yanes on 08-10-2024 RBC (Bld) [#/Vol] 4.42 10*6/uL Low 4.6-6.2 [place] Serum creatinine measurement (mass/volume)Ordered By: Jace Yanes on 08-10-2024 Creatinine [Mass/Vol] 6.57 mg/dL High 0.70-1.20 [facility] Serum glucose measurement (m ass/volume)Ordered By: Jace Yanes on 08-10-2024 Glucose [Mass/Vol] 118 mg/dL High 70-99 [facility] Serum or plasma calcium jessie urement (mass/volume)Ordered By: Jace Yanes on 08-10-2024 Calcium [Mass/Vol] 11.0 mg/dL 7.6-11.0 [facility] Serum or plasma urea nitroge n measurement (mass/volume)Ordered By: Jace Yanes on 08-10-2024 Urea nitrogen [Mass/Vol] 48 mg/dL High 4-19 [facility] Sodium levelOrdered By: Jace Yanes on 08-10-2024 Sodium [Moles/Vol] 138 mmol/L 133-145 [facility] Troponin T.cardiac [Mass/vol ume] in Serum or Plasma by High sensitivity methodOrdered By: Jace Yanes on 08-10-2024 Troponin T.cardiac High sensitivity method [Mass/Vol] 208 ng/L High <22 [facility] Comment on above: Critical Result(s) C alled at:0007 by: MONET OLIVARES TO MADAI FRENCH Results read back by same. Troponin T.cardiac High sensitivity method [Mass/Vol] 193 ng/L High <22 [facility] Comment on above: Critical Result(s) C alled at:2226 by: MOENT GONZALES Results read back by same. Troponin T.cardiac High sensitivity method [Mass/Vol] 211 ng/L High <22 [facility] Comment on above: Critical Result(s) C alled ACOLE at: 5 by: JEY Results read back by same. White blood cell (WBC) count Ordered By: Jace Yanes on 08-10-2024 WBC (Bld) [#/Vol] 11.5 10*3/uL High 4.4-11.0 [place] Surgery Visit Reporton 08-[address] [facility] Endocrinology Visit Reporton 07-28-2024 Endocrinology Visit Report Normal [facility] Laboratory - Hematology and Cell countsOrdered By: Kendra Pierce on 07-28-2024 HbA1c (Bld) [Mass fraction] 7.3 % High 4.2-6.3 [facility] No Panel InformationOrdered By: Kendra Pierce on 07-28-2024 7.3 % High 4.2-6.3 [facility] Discharge Instructionon 06-30 Discharge Instruction Normal [facility] MR/POSTOP.ANEon 07-20-2024 MR/POSTOP.ANE [facility] MR/[id number] 07-20-2024 MR/POSTOPAN2 [facility] Operative Reporton Operative Report Normal [facility] MR/PAT.ANEon 07-16-2024 MR/PAT.ANE [facility] CNCOon 07-14-2024 CNCO Clinical report posted in error Letter Text Normal [facility] CNCO Letter Text Normal [facility] Anion gap in Serum or Plasma Ordered By: Garrison Valadez on 07-07-2024 Anion gap [Moles/Vol] 14 mmol/L 5-15 [facility] BUN/creatinine ratioOrdered By: Garrison Valadez on 07-07-2024 Urea nitrogen/Creatinine [Mass ratio] 7.5 mg/mg Low 10-20 [facility] Basic Metabolic Profile (BMP )on 07-07-2024 BUN/CRE 7.5 RATIO Low 10-20 [facility] Comment on above: Performed By: #### L 500.2500, L100.0500 ####[facility] [address] [place], [address] Calcium [Mass/Vol] 9.1 mg/dL Normal 7.6-11.0 [facility] Comment on above: Performed By: #### L 500.2500, L100.0500 ####[facility] [address] [place], [address] Chloride [Moles/Vol] 99 mmol/L Normal 98-108 [facility] Comment on above: Performed By: #### L 500.2500, L100.0500 ####[facility] [address] [place], [address] CO2 [Moles/Vol] 20.5 mmol/L Low 21.0-32.0 [facility] Comment on above: Performed By: #### L 500.2500, L100.0500 ####[facility] [address] [place], [address] Creatinine [Mass/Vol] 5.67 mg/dL High 0.70-1.20 [facility] Comment on above: Performed By: #### L 500.2500, L100.0500 ####[facility] [address] [place], [address] ECRCL 19.98 ml/min Low 50-250 [facility] Comment on above: Performed By: #### L 500.2500, L100.0500 ####[facility] [address] [place], [address] GAP 14 Normal 5-15 [facility] Comment on above: Performed By: #### L 500.2500, L100.0500 ####[facility] [address] [place], [address] GFR/1.73 sq M.predicted among non-blacks MDRD (S/P/Bld) [Vol rate/Area] 12 mL/min/{1.73_m2} Low >60 [facility] Comment on above: Result Comment: mL/m in/1.73m2 CKD-EPI Creatinine Equation (2020) Performed By: #### L 500.2500, L100.0500 ####[facility] [address] [place], [address] Glucose [Mass/Vol] 209 mg/dL High 70-99 [facility] Comment on above: Performed By: #### L 500.2500, L100.0500 ####[facility] [address] [place], [address] Potassium [Moles/Vol] 4.3 mmol/L Normal 3.3-5.1 [facility] Comment on above: Performed By: #### L 500.2500, L100.0500 ####[facility] [address] [place], [address] Sodium [Moles/Vol] 134 mmol/L Normal 133-145 [facility] Comment on above: Performed By: #### L 500.2500, L100.0500 ####[facility] [address] [place], [address] Urea nitrogen [Mass/Vol] 43 mg/dL High 4-19 [facility] Comment on above: Performed By: #### L 500.2500, L100.0500 ####[facility] [address] [place], [address] CBC-Complete Blood Cnt No Di ffon 07-07-2024 Erythrocyte distribution width (RBC) [Ratio] 13.7 % Normal 11.6-14.6 [facility] Comment on above: Performed By: #### L 500.2500, L100.0500 ####[facility] [address] [place], [address] Hematocrit (Bld) [Volume fraction] 29.6 % Low 40-54 [facility] Comment on above: Performed By: #### L 500.2500, L100.0500 ####[facility] [address] [place], [address] Hemoglobin (Bld) [Mass/Vol] 10.2 g/dL Low 13.0-16. 5 [facility] Comment on above: Performed By: #### L 500.2500, L100.0500 ####[facility] [address] [place], [address] MCH (RBC) [Entitic mass] 31.1 pg Normal 27.0-32.0 [facility] Comment on above: Performed By: #### L 500.2500, L100.0500 ####[facility] [address] [place], [address] MCHC (RBC) [Mass/Vol] 34.5 g/dL Normal 32-36 [facility] Comment on above: Performed By: #### L 500.2500, L100.0500 ####[facility] [address] [place], [address] MCV (RBC) [Entitic vol] 90.2 fL Normal 80-94 [facility] Comment on above: Performed By: #### L 500.2500, L100.0500 ####[facility] [address] [place], [address] Platelet mean volume (Bld) [Entitic vol] 9.0 fL Normal 6.2-12.0 [facility] Comment on above: Performed By: #### L 500.2500, L100.0500 ####[facility] [address] [place], [address] Platelets (Bld) [#/Vol] 273 10*3/uL Normal 150-450 [facility] Comment on above: Performed By: #### L 500.2500, L100.0500 ####[facility] [address] [place], [address] RBC (Bld) [#/Vol] 3.28 10*6/uL Low 4.6-6.2 [facility] Comment on above: Performed By: #### L 500.2500, L100.0500 ####[facility] [address] [place], [address] RDW SD 44.8 fl High 35.1-43.9 [facility] Comment on above: Performed By: #### L 500.2500, L100.0500 ####[facility] [address] [place], [address] WBC (Bld) [#/Vol] 7.9 10*3/uL Normal 4.4-11.0 [facility] Comment on above: Performed By: #### L 500.2500, L100.0500 ####[facility] [address] [place], [address] Carbon dioxide, total [Moles /volume] in Central venous bloodOrdered By: Garrison Valadez on 07-07-2024 CO2 [Moles/Vol] 20.5 mmol/L Low 21.0-32.0 [facility] Chloride assayOrdered By: Reva Valadez on 07-07-2024 Chloride [Moles/Vol] 99 mmol/L 98-108 [facility] Erythrocyte distribution wid th (RBC) [Ratio]Ordered By: Garrison Valadez on 07-07-2024 Erythrocyte distribution width (RBC) [Entitic vol] 44.8 fL High 35.1-43.9 [facility] Erythrocyte distribution wid th ratioOrdered By: Garrison Valadez on 07-07-2024 Erythrocyte distribution width (RBC) [Ratio] 13.7 % 11.6-14.6 [facility] Erythrocyte distribution wid th standard deviationOrdered By: Garrison Valadez on 07-07-2024 Erythrocyte distribution width (RBC) [Ratio] 44.8 fl High 35.1-43.9 [facility] Estimation of creatinine jihan aranceOrdered By: Garrison Valadez on 07-07-2024 Estimated Creatinine Clearance Calc 19.98 ml/min Low 50-250 [facility] GFR/1.73 sq M.predicted antonietta g non-blacks MDRD (S/P/Bld) [Vol rate/Area]Ordered By: Garrison Valadez on 07-07-2024 Estimated GFR (MDRD) Non-Af Amer 12 Low >60 [facility] Comment on above: mL/min/1.73m2 CKD-EP I Creatinine Equation (2020) Glomerular filtration rate ( GFR) estimation/1.73 sq m using serum, plasma, or whole bOrdered By: Garrison Valadez on 07-07-2024 GFR/1.73 sq M.predicted among non-blacks MDRD (S/P/Bld) [Vol rate/Area] 12 mL/min/{1.73_m2} Low >60 [facility] Comment on above: mL/min/1.73m2 CKD-EP I Creatinine Equation (2020) Hematocrit Auto (Bld) [Volum e fraction]Ordered By: Garrison Valadez 07-07-2024 Hematocrit (Bld) [Volume fraction] 29.6 % Low 40-54 [facility] Hemoglobin measurementOrdere d By: Garriosn Valadez 07-07-2024 Hemoglobin (Bld) [Mass/Vol] 10.2 g/dL Low 13.0-16. 5 [facility] MCV (mean corpuscular volume ) determinationOrdered By: Garrison Valadez 07-07-2024 MCV (RBC) [Entitic vol] 90.2 fL 80-94 [facility] Mean corpuscular hemoglobin (MCH) determinationOrdered By: Garrison Valadez 07-07-2024 MCH (RBC) [Entitic mass] 31.1 pg 27.0-32.0 [facility] Mean corpuscular hemoglobin concentration (MCHC) determinationOrdered By: Garrison Valadez on 07-07-2024 MCHC (RBC) [Mass/Vol] 34.5 g/dL 32-36 [facility] Mean platelet volume determi nationOrdered By: Garrison Valadez on 07-07-2024 Platelet mean volume (Bld) [Entitic vol] 9.0 fL 6.2-12.0 [facility] Operative Reporton Operative Report Normal [facility] Platelet countOrdered By: Reva Valadez on 07-07-2024 Platelets (Bld) [#/Vol] 273 10*3/uL 150-450 [facility] Potassium (Unsp spec) [Mass/ Vol]Ordered By: Garrison Valadez on 07-07-2024 Potassium [Moles/Vol] 4.3 mmol/L 3.3-5.1 [facility] Potassium measurement (mass/ volume)Ordered By: Garrison Valadez on 07-07-2024 Potassium (Unsp spec) [Mass/Vol] 4.3 mmol/L 3.3-5.1 [facility] RBC Auto (Bld) [#/Vol]Ordere d By: Garrison Valadez on 07-07-2024 RBC (Bld) [#/Vol] 3.28 10*6/uL Low 4.6-6.2 [place] Serum creatinine measurement (mass/volume)Ordered By: Garrison Valadez on 07-07-2024 Creatinine [Mass/Vol] 5.67 mg/dL High 0.70-1.20 [facility] Serum glucose measurement (m ass/volume)Ordered By: Garrison Valadez on 07-07-2024 Glucose [Mass/Vol] 209 mg/dL High 70-99 [facility] Serum or plasma calcium jessie urement (mass/volume)Ordered By: Garrison Valadez on 07-07-2024 Calcium [Mass/Vol] 9.1 mg/dL 7.6-11.0 [facility] Serum or plasma urea nitroge n measurement (mass/volume)Ordered By: Garrison Valadez on 07-07-2024 Urea nitrogen [Mass/Vol] 43 mg/dL High 4-19 [facility] Sodium levelOrdered By: Garrison Valadez on 07-07-2024 Sodium [Moles/Vol] 134 mmol/L 133-145 [facility] White blood cell (WBC) count Ordered By: Garrison Rory on 07-07-2024 WBC (Bld) [#/Vol] 7.9 10*3/uL 4.4-11.0 [facility] CNCOon 07-02-2024 CNCO Letter Text Normal [facility] KID K/P PANC REC HLA AB SCRN on 06-24-2024 ALLOGEN RESULTS TO FOLLOW See Allogen re port to follow Normal [facility] Comment on above: Order Comment: Speci men Type: BLOOD SPECIMENOrdering Facility: [facility] Address: [address] [place] [address] Performed By: #### K PRHAS ####[facility]IES[facility] [id number] [address] CNPGloria 06-18-2024 CNPN Telephone (INTMWS) LAURIE GONZALES ([id number]) 1980 M Date Time Provider Department 06/18/24 KRISTAL SULLIVAN INTWS During your visit today, we recorded the following information about you: Kim Loving MA 06/18/2024 3:31 PM Signed Type of form: BMV Request for Statement of Physician Form received via walk in When form is completed, Scan form into Epic AND call patient for orange picker Form has been forwarded to Physician Desk: SHAHID Osorio Jane, MA 06/23/2024 9:14 AM Signed Patient notified form is ready for orange picker. Allergies As of Date: 06/18/2024 Noted [...] AFFECTED AREA FIVE TIMES DAILY - Insulin [place], Disposable, (BD ULTRA-FINE CAROL PEN NEEDLE) 32 gauge x /32 ndle Use one needle for each dose. 7/day. - Zn Acetate-Meadowsweet- Woodland (AMERIGEL) gel Apply 1 application to affected [...] hypertension [I10] 12/01/2020 Encounter Status:Closed by VIANEY JEAN on 06/23/24 Normal [facility] MR/BMS.BVSon 06-17-2024 MR/BMS.BVS Normal [facility] CBC panel Auto (Bld)on 06-15 Erythrocyte distribution width (RBC) [Ratio] 13.3 % Normal 11.5-15.0 [facility] Comment on above: Order Comment: Speci men Type: BLOOD SPECIMENOrdering Facility: [facility] Address: [address] [place] [address] Performed By: #### 5 8410-2 ####[facility] LABIA [id number] [place] [address] [place] Hematocrit (Bld) [Volume fraction] 35.0 % Low 39.0-51.0 [facility] Comment on above: Order Comment: Speci men Type: BLOOD SPECIMENOrdering Facility: [facility] Address: [address] [place] [address] Performed By: #### 5 8410-2 ####[facility] LABIA [id number] [place] [address] [place] Hemoglobin (Bld) [Mass/Vol] 12.0 g/dL Low 13.0-17. 0 [facility] Comment on above: Order Comment: Speci men Type: BLOOD SPECIMENOrdering Facility: [facility] Address: [address] [place] [address] Performed By: #### 5 8410-2 ####[facility] LABIA [id number] [place] [address] [place] [facility] MCH (RBC) [Entitic mass] 30.2 pg Normal 26.0-34.0 [facility] Comment on above: Order Comment: Speci men Type: BLOOD SPECIMENOrdering Facility: [facility] Address: [address] [place] [address] Performed By: #### 5 8410-2 ####[facility] LABIA [id number] [place] [address] [place] MCHC (RBC) [Mass/Vol] 34.3 g/dL Normal 30.5-36.0 [facility] Comment on above: Order Comment: Speci men Type: BLOOD SPECIMENOrdering Facility: [facility] Address: [address] [place] [address] Performed By: #### 5 8410-2 ####[facility] LABIA [id number] [place] [address] [place] MCV (RBC) [Entitic vol] 87.9 fL Normal 80.0-100.0 [facility] Comment on above: Order Comment: Speci men Type: BLOOD SPECIMENOrdering Facility: [facility] Address: [address] [place] [address] Performed By: #### 5 8410-2 ####[facility] LABIA [id number] [place] [address] [place] Nucleated RBC (Bld) [#/Vol] 10*3/uL Normal <0.01 [facility] Comment on above: Order Comment: Speci men Type: BLOOD SPECIMENOrdering Facility: [facility] Address: [address] [place] [address] Performed By: #### 5 8410-2 ####[facility] LABCLIA [id number] [address] [address] [place] Platelet mean volume (Bld) [Entitic vol] 9.3 fL Normal 9.0-12.7 [facility] Comment on above: Order Comment: Speci men Type: BLOOD SPECIMENOrdering Facility: [facility] Address: [address] [place] [address] Performed By: #### 5 8410-2 ####[facility] LABCLIA [id number] [address], [facility] [place] Platelets (Bld) [#/Vol] 290 10*3/uL Normal 150-400 [facility] Comment on above: Order Comment: Speci men Type: BLOOD SPECIMENOrdering Facility: [facility] Address: [address] [place] [address] Performed By: #### 5 8410-2 ####[facility] LABIA [id number] [place] [address] [place] RBC (Bld) [#/Vol] 3.98 10*6/uL Low 4.20-6.[address] [facility] Comment on above: Order Comment: Speci men Type: BLOOD SPECIMENOrdering Facility: [facility] Address: [address] [place] [address] Performed By: #### 5 8410-2 ####[facility] LABCLIA [id number] [place] [id number] [place] WBC (Bld) [#/Vol] 8.75 10*3/uL Normal 3.70-11.[address] [facility] Comment on above: Order Comment: Speci men Type: BLOOD SPECIMENOrdering Facility: [facility] Address: [address] [place] [address] Performed By: #### 5 8410-2 ####[facility] LABIA [id number] [place] [id number] [place] CNOVon 06-15-2024 CNOV Office Visit (INTMWS) LAURIE GONZALES ([id number]) 1980 M Date Time Provider Department 06/15/24 1:00 PM KRISTAL SULLIVAN INTMWS During your visit today, [...] thirst. - Discussed Ozempic and Mounjaro with [employer] for appetite control. - On kidney and pancreas transplant list with [facility]. - Taking vitamin D, increased to 3 pills daily. CAD: - KS in March, with stent placement in LAD. - Reports nausea, weakness, and difficulty walking during KS. - Underwent stress test post-KS. - Taking aspirin daily. - On metoprolol succinate 25 mg daily and amlodipine. - Stopped lisinopril due to lack of refills. Pulmonary Edema: - Developed pulmonary edema post-KS, requiring BiPAP for a week. - Denies current asthma symptoms; not taking montelukast. Weight Management: - Current weight 202 lbs, down from 211 lbs. - Reports weight fluctuations due to fluid retention and dialysis. 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 - Enjoys outdoor activities like fishing and riding a 4-vick. - Describes self as lazy and does not engage in regular exercise. - Sleeps well and denies significant stress. 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 [...] (FREESTYLE LITE STRIPS) test strip MEDICAL SUPPLY [facility].Me.Gluc.Intol,La c-Free,Soy (GLUCERNA SHAKE) liqd rosuvastatin (CRESTOR) 20 mg tablet insulin aspart U-100 (NOVOLOG FLEXPEN U-100 INSULIN) 100 unit/mL (3 mL) alcohol swabs padm Insulin [place], Disposable, (BD ULTRA-FINE CAROL PEN NEEDLE) 32 gauge x 5/32 ndle Zn Acetate-Meadowsweet- [place]land (AMERIGEL) gel metoprolol succinate ER (TOPROL XL) 25 mg 24 hr tablet amLODIPine (NORVASC) 5 mg tablet Cholecalciferol, Vitamin D3, 125 mcg (5,000 unit) cap insulin glargine (LANTUS SOLOSTAR, BASAGLAR KWIKPEN) 100 unit/mL (3 mL) glucose 4 gram chewable tablet lancets (FREESTYLE LANCETS) 28 gauge [facility] [place] [facility] Maintenance Depression Screening Anxiety Screening BP [...] Completed comprehensive (more content not included)... Normal [facility] Comprehensive metabolic 2000 panelon 06-15-2024 Albumin [Mass/Vol] 4.5 g/dL Normal 3.9-4.9 [facility] Comment on above: Order Comment: Carrolli shaina Type: BLOOD SPECIMENOrdering Facility: [facility] Address: [address] [place] [address] Performed By: #### 2 4331-1, 6-3, 91917-9 ####[facility] LABCLIA [id number] [place] [address] [place] ALP [Catalytic activity/Vol] 95 U/L Normal 38-113 [facility] Comment on above: Order Comment: Speci men Type: BLOOD SPECIMENOrdering [facility] Address: [address] [place] [address] Performed By: #### 2 4331-1, 3016-3, 94552-6 ####[facility] LABCLIA [id number] [address] [address] [place] ALT [Catalytic activity/Vol] 21 U/L Normal 10-54 [facility] Comment on above: Order Comment: Speci men Type: BLOOD SPECIMENOrdering Facility: [facility] Address: [address] [place] [address] Performed By: #### 2 4331-1, 3016-3, 38338-6 ####[facility] LABCLIA [id number] [place] [id number] [place] Anion gap [Moles/Vol] 12 mmol/L Normal 8-15 [facility] Comment on above: Order Comment: Speci men Type: BLOOD SPECIMENOrdering Facility: [facility] Address: [address] [place] [address] Performed By: #### 2 4331-1, 3015-3, 48458-5 ####[facility] LABCLIA [id number] [place] [address] [place] AST [Catalytic activity/Vol] 48 U/L High 14-40 [facility] Comment on above: Order Comment: Speci men Type: BLOOD SPECIMENOrdering Facility: [facility] Address: [address] [place] [address] Performed By: #### 2 4331-1, 3015-3, 01812-3 ####[facility] LABCLIA [id number] [place] [id number] [place] Bilirubin [Mass/Vol] 0.4 mg/dL Normal 0.2-1.3 [facility] Comment on above: Order Comment: Speci men Type: BLOOD SPECIMENOrdering Facility: [facility] Address: [address] [place] [address] Performed By: #### 2 4331-1, 3016-3, 34340-7 ####[facility] LABCLIA [id number] [place] [id number] [place] Calcium [Mass/Vol] 10.1 mg/dL Normal 8.5-10.2 [facility] Comment on above: Order Comment: Speci men Type: BLOOD SPECIMENOrdering Facility: [facility] Address: [address] [place], [place] [address] Performed By: #### 2 4331-1, 3015-3, ####[facility] LABCLIA [id number] [facility] [address] [address] [place] Chloride [Moles/Vol] 97 mmol/L Low 98-107 [facility] Comment on above: Order Comment: Speci men Type: BLOOD SPECIMENOrdering Facility: [facility] Address: [address] [place], [place] [address] Performed By: #### 2 4331-1, 3, ####[facility] LABCLIA [id number] [place] [id number] [place] CO2 [Moles/Vol] 27 mmol/L Normal 22-30 [facility] Comment on above: Order Comment: Speci men Type: BLOOD SPECIMENOrdering Facility: [facility] Address: [address] [place] [address] Performed By: #### 2 4331-1, 3, ####[facility] LABCLIA [id number] [address] [address] [place] Creatinine [Mass/Vol] 4.89 mg/dL High 0.73-1.22 [facility] Comment on above: Order Comment: Speci men Type: BLOOD SPECIMENOrdering Facility: [facility] Address: [address] [place] [address] Performed By: #### 2 4331-1, 3, ####[facility] LABCLIA [id number] [address] [address] [place] Creatinine and Glomerular filtration rate.predicted panel (S/P/Bld) 14 mL/min/1.73m??? Low >=60 [facility] Comment on above: Order Comment: Bam merritt Type: BLOOD SPECIMENOrdering Facility: [facility] Address: [address] [place] [address] Result Comment: Destinee mated Glomerular Filtration Rate [...] actual GFR. Performed By: #### 2 4331-1, 3016-3, 35060-7 ####[facility] [id number] [place] [address] [place] Glucose [Mass/Vol] 167 mg/dL High 74-99 [facility] Comment on above: Order Comment: Bam merritt Type: BLOOD SPECIMENOrdering Facility: [facility] Address: [address] [place] [address] Result Comment: The [place] Diabetes Association (ADA) provides guidance for cutoff [...] Standards of Medical Care in Diabetes 2016, [place] Diabetes Association. Diabetes Care. 2016.39(Suppl 1). Performed By: #### 2 4331-1, 3016-3, 99652-2 ####[facility] [id number] [place] [id number] [place] Potassium [Moles/Vol] 4.9 mmol/L Normal 3.7-5.1 [facility] Comment on above: Order Comment: Speci men Type: BLOOD SPECIMENOrdering Facility: [facility] Address: [address] [place] [address] Performed By: #### 2 4331-1, 3, ####[facility] LABCLIA [id number] [address] [place] [address] [place] Protein [Mass/Vol] 7.3 g/dL Normal 6.3-8.0 [facility] Comment on above: Order Comment: Speci men Type: BLOOD SPECIMENOrdering Facility: [facility] Address: [address] [place], [place] [address] Performed By: #### 2 4331-1, 3, ####[facility] LABCLIA [id number] [address] [address] [place] Sodium [Moles/Vol] 136 mmol/L Normal 136-144 [facility] Comment on above: Order Comment: Speci men Type: BLOOD SPECIMENOrdering Facility: [facility] Address: [address] [place], [place] [address] Performed By: #### 2 4331-1, 3, ####[facility] LABCLIA [id number] [address] [address] [place] Urea nitrogen [Mass/Vol] 35 mg/dL High 9-24 [facility] Comment on above: Order Comment: Speci men Type: BLOOD SPECIMENOrdering Facility: [facility] Address: [address] [place], [place] [address] Performed By: #### 2 4331-1, 3, ####[facility] LABCLIA [id number] [address] [place] [address] [place] HbA1c (Bld)on 06-15-2024 Average glucose Estimated from glycated hemoglobin (Bld) [Mass/Vol] 206 mg/dL Normal [facility] Comment on above: Order Comment: Speci men Type: BLOOD SPECIMENOrdering Facility: [facility] Address: [address] [place] [address] Result Comment: eAG: (Estimated average glucose) is a calculated value from HgbA1c and is regional sales representative of the average blood glucose level in the last 2-3 month period. Performed By: #### 5 5454-3 ####[facility] LABCLIA [id number] [address] [address] [place] HbA1c (Bld) [Mass fraction] 8.8 % High 4.3-5.6 [facility] Comment on above: Order Comment: Speci men Type: BLOOD SPECIMENOrdering Facility: [facility] Address: [address] [place] [address] Result Comment: [place] Diabetes Association guidelines indicate that patients with HgbA1c in the range 5.7-6.4% are at increased risk for development of diabetes, and intervention by lifestyle modification may be beneficial. HgbA1c greater or equal to 6.5% is considered diagnostic of diabetes. Performed By: #### 5 5454-3 ####[facility] LABCLIA [id number] [address] [address] [place] Lipid 1996 panelon 5 Cholesterol [Mass/Vol] 166 mg/dL Normal <200 [facility] Comment on above: Order Comment: Speci men Type: BLOOD SPECIMENOrdering Facility: [facility] Address: [address] [place] [address] Result Comment: <200 mg/dL, Desirable 200-239 mg/dL, Borderline high >239 mg/dL, High Performed By: #### 2 4331-1, 3016-3, 14835-6 ####[facility] LABCLIA [id number] [place] [id number] [place] Cholesterol in HDL [Mass/Vol] 60 mg/dL Normal >39 [facility] Comment on above: Order Comment: Speci men Type: BLOOD SPECIMENOrdering Facility: [facility] Address: [address] [place] [address] Result Comment: 40-5 9 mg/dL, Acceptable >59 mg/dL, High: Negative risk factor for coronary heart disease <40 mg/dL, Low: Positive risk factor for coronary heart disease Performed By: #### 2 4331-1, 3015-3, ####[facility] LABCLIA [id number] [facility] [address] [place] [address] [place] Cholesterol in LDL [Mass/Vol] 87 mg/dL Normal <100 [facility] Comment on above: Order Comment: Speci men Type: BLOOD SPECIMENOrdering Facility: [facility] Address: [address] [place] [address] Result Comment: <100 mg/dL, Optimal 100-129 mg/dL, Near optimal/above optimal 130-159 mg/dL, Borderline high 160-189 mg/dL, High >189 mg/dL, Very high Secondary prevention optimal LDL Cholesterol levels are recommended to be < 70 mg/dL Performed By: #### 2 4331-1, 3015-3, ####[facility] LABCLIA [id number] [address] [place] [address] [place] Cholesterol in LDL/Cholesterol in HDL [Mass ratio] 1.45 {ratio} Normal <2.54 [facility] Comment on above: Order Comment: Speci men Type: BLOOD SPECIMENOrdering Facility: [facility] Address: [address] [place] [address] Result Comment: Refe renvanessa: 1. National Cholesterol Education Program ATP III Guideline At-A-Glance Quick Desk Reference: National Heart, Lung, and Blood [place]. National Institutes of Health. 2001: NIH Publication No. 01-3305. 2. An International Atherosclerosis Society position paper: global recommendations for the management of dyslipidemia: executive summary, Atherosclerosis. 2014: 232(2):410-413. Performed By: #### 2 4331-1, 3015-3, ####[facility] LABCLIA [id number] [address] [address] [place] Cholesterol in VLDL [Mass/Vol] 19 mg/dL Normal <30 [facility] Comment on above: Order Comment: Speci men Type: BLOOD SPECIMENOrdering Facility: [facility] Address: [address] [place] [address] Performed By: #### 2 4331-1, 3015-05, ####[facility] LABCLIA [id number] [facility] [place] [address] [place] Cholesterol non HDL [Mass/Vol] 106 mg/dL Normal <130 [facility] Comment on above: Order Comment: Speci men Type: BLOOD SPECIMENOrdering Facility: [facility] Address: [address] [place] [address] Result Comment: <130 mg/dL, Optimal 130-159 mg/dL, Near optimal/above optimal 160-189 mg/dL, Borderline high 190-219 mg/dL, High >219 mg/dL, Very high Secondary prevention optimal non HDL Cholesterol levels are recommended to be <100 mg/dL Performed By: #### 2 4331-1, 3015-05, ####[facility] LABCLIA [id number] [address] [place] [address] [place] Cholesterol.total/Cholester ol in HDL [Mass ratio] 2.77 {ratio} Normal <5.10 [facility] Comment on above: Order Comment: Speci men Type: BLOOD SPECIMENOrdering Facility: [facility] Address: [address] [place] [address] Performed By: #### 2 4331-1, 3015-05, ####[facility] LABCLIA [id number] [facility] [address] [place] [address] [place] FASTING TIME 12 hrs Normal [facility] Comment on above: Order Comment: Speci men Type: BLOOD SPECIMENOrdering Facility: [facility] Address: [address] [place] [address] Performed By: #### 2 4331-1, 3015-05, ####[facility] LABCLIA [id number] [place] [id number] [place] Triglyceride [Mass/Vol] 96 mg/dL Normal <150 [facility] Comment on above: Order Comment: Speci men Type: BLOOD SPECIMENOrdering Facility: [facility] Address: [address] [place] [address] Result Comment: <150 mg/dL, Normal 150-199 mg/dL, Borderline high 200-499 mg/dL, High >499 mg/dL, Very high Performed By: #### 2 4331-1, 3016-3, 37582-6 ####[facility] LABCLIA [id number] [place] [id number] [place] TSH SerPl-aCncon 06-15-2024 TSH Qn 1.830 m[IU]/L Normal 0.270-4.200 [facility] Comment on above: Order Comment: Speci men Type: BLOOD SPECIMENOrdering Facility: [facility] Address: [address] [place] [address] Performed By: #### 2 4331-1, 3016-3, 48580-5 ####[facility] LABCLIA [id number] [place] [id number] [place] AV Fistula/Dialysis Graft Sc anon 06-10-2024 AV Fistula/Dialysis Graft Scan Normal [facility] Arterial study reportOrdered By: Garrison Valadez on 06-10-2024 Noninvasive arteriosclerosis study report [facility] [address] [facility] [place] [address] AV Fistula/Dialysis Graft Scan 06/10/24 1303 MR#: [id number] Acct: [id number] Name: LAURIE GONZALES Rep #:[id number] : 1980 43 From: Garrison Ricketts Attending Dr: LUCÍA Mcderomtt Stat us: REG CLI Ordering Dr: Thalia [...] Date Dictated: 06/10/24 1303 Date Transcribed: 06/10/241833 Shuttle Van Driver: Signed [facility] Work Phone: Dian 05-25-2024 [facility] Telephone (TXCTGL) LAURIE GONZALES ([id number]) 1980 M Date Time Provider Department 05/25/24 CIARRA RAMÍREZ TXCTGL During your visit today, we recorded the following information about you: Ciarra Ramírez LISW 05/25/2024 3:20 PM Signed ADITHYA called [...] understanding. SW will await phone calls. Ciarra Ramírez LISW 05/25/2024 3:24 PM Signed ADITHYA received a phone call from pt's mother Page ([phone]) regarding support. ADITHYA reviewed the follow up care sequence, including lab work twice a week and twice a week post transplant clinic appointments. ADITHYA also discussed the need to have a caregiver multimedia programmer for 2 weeks post transplant. Page reports being 66yrs old and she is retired. Page stated she is available whenever needed to assist with caregiver / transportation support. Page verified her commitment to help pt post transplant. WILBUR Andrews Transplant Chemical Equipment Sales Engineer Ciarra Ramírez LISW 05/27/2024 1:53 PM Signed ADITHYA returned phone call from pt's ex- Ira ([phone]) regarding support. Ira disclosed that her and the pt have been back together for several years and they reside in the same home. ADITHYA reviewed the follow up care sequence, including lab work twice a week and twice a week post transplant clinic appointments. ADITHYA also discussed the need to have a caregiver multimedia programmer for 2 weeks post transplant. Ira verbalized understanding. Ira stated she is a traveling RN and she would be able to assist with support before and after work. Ira stated while she is working the pt's mother will be at their home in order to assist with support. Ira reports they will work in shifts in order to ensure multimedia programmer support. Ira verified her commitment to help pt post transplant. WILBUR Andrews Transplant Chemical Equipment Sales Engineer Allergies As of Date: 05/25/2024 Noted Allergy [...] AFFECTED AREA FIVE TIMES DAILY - Insulin [place], Disposable, (BD ULTRA-FINE CAROL PEN NEEDLE) 32 gauge x ndle Use one needle for each dose. 7/day. - Zn Acetate-Meadowsweet- Woodland (AMERIGEL) gel Apply 1 application to affected [...] due to (more content not included)... Normal [facility] CNPNon 04-29-2024 CNPN Telephone (TXCTGL) LAURIE GONZALES ([id number]) 1980 Date Time Provider Department 04/29/24 CIARRA RAMÍREZ TXCTGL During your visit today, we recorded the following information about you: Ciarra Ramírez LISW 04/29/2024 10:50 AM Signed ADITHYA called pt in preparation of selection committee. ADITHYA reminded pt that both his primary and backup support needs to be verified. SW requested that they contact SW to verify their commitment. Pt verbalized understanding. ADITHYA will await phone calls. JUSTIN Andrews-Kaylen Transplant Chemical Equipment Sales Engineer Allergies As of Date: 04/29/2024 Noted Allergy [...] AFFECTED AREA FIVE TIMES DAILY - Insulin [place], Disposable, (BD ULTRA-FINE CAROL PEN NEEDLE) 32 gauge x 5/32 ndle Use one needle for each dose. 7/day. - Zn Acetate-Meadowsweet- Woodland (AMERIGEL) gel Apply 1 application to affected [...] hypertension [I10] 12/01/2020 Encounter Status:Closed by CIARRA RAMÍREZ on 04/29/24 Normal [facility] MR/BMS.BVSon 04-22-2024 MR/BMS.BVS Normal [facility] Bedside Glucoseon 04-21-2024 FINGERSTICK GLU 112 mg/dL High 74-106 [facility] Comment on above: Result Comment: EDUARDO GEMENT OF PATIENT CARE PER NURSING PROTOCOL Performed By: #### L 501.080 ####[facility] [address] [place], [address] Bedside Glucoseon 04-20-2024 FINGERSTICK GLU 188 mg/dL High 74-106 [facility] Comment on above: Result Comment: EDUARDO GEMENT OF PATIENT CARE PER NURSING PROTOCOL Performed By: #### L 501.080 ####[facility] [address] [place], [address] Emergency Department Summary on 04-20-2024 Emergency Department Summary Normal [facility] deOrdered By: Kristi Murillo on 04-20-2024 Bedside Glucose ([facility] Panel) 188 mg/dL High 74-106 [facility] Comment on above: MANAGEMENT OF PATIEN T CARE PER NURSING PROTOCOL Glucose [Mass/Vol] 188 mg/dL High 74-106 [facility] Comment on above: MANAGEMENT OF PATIEN T CARE PER NURSING PROTOCOL CNNURSEon 04-12-2024 CNNURSE Nurse Visit (CARDWS) LAURIE GONZALES ([id number]) 1980 Date Time Provider Department 04/12/24 9:45 AM NURSE CARD ADMIN [facility] WSTR CARDWS During your visit today, we recorded [...] mouth as needed. - Ketone Blood Test (griddig XTRA B-KETONE) strp Test KETONES as directed. [...] AFFECTED AREA FIVE TIMES DAILY - Insulin [place], Disposable, (BD ULTRA-FINE CAROL PEN NEEDLE) 32 gauge x 5/32 ndle Use one needle for each dose. 7/day. - Zn Acetate-Meadowsweet- Woodland (AMERIGEL) gel Apply 1 application to affected [...] 04/12/2024 Route: INTRAVENOUS Cosign accepted by RONEN ELDRIDGE[[id number]] on 04/12/2024 11:21 AM Encounter Status:Closed by WILLIE GONZALEZ on 04/13/24 Normal [facility] CARDIAC PERF STRESS/PHARM on 04-12-2024 NM CARDIAC PERF STRESS/PHARM * * *Final Report* * * DATE OF EXAM: Apr 12 2024 10:35AM [facility] CARDIAC PERF STRESS/PHARM / PROCEDURE REASON: Encounter for other preprocedural examination * * * * Physician Interpretation * * * * Stress Medical Office Technologist Report: On License Of [facility] Date of service: 04/12/2024 7:27:59 AM Supervising [...] later. See administered radiotracer and doses below. On License Of [facility] Date of service: 04/12/2024 7:27:59 AM Ordering [...] Final * * * Stress ECG Report: On License Of [facility] Date of service: 04/12/2024 7:27:59 AM Ordering physician: RONEN ELDRIDGE control systems specialist: Willie Gonzalez Interpreting physician: Venkata García [...] 120/78 mmHg. The double product [place] was [id number]. Medications: Last Used CARVEDILOL 1 Days LISINOPRIL 1 Days CRESTOR 1 Days Resting ECG: Normal Sinus Rhythm and Rare PACs (<3/Min) Symptoms at rest: No symptoms Pharamcologic Protocol: Regadenoson Stress Exercise Table: +-----+--+---+---+ Stage HR SYS TOMMIE +-----+--+---+---+ 1 86 +-----+--+-- (more content not included)... Normal [facility] Heart Perfusion W stress and W radionuclide Rickey 04-12-2024 * * *Final Report* * * DATE OF EXAM: Apr 12 2024 10:35AM [facility] [place] CARDIAC PERF STRESS/PHARM / PROCEDURE REASON: Encounter for other preprocedural examination * * * * Physician Interpretation * * * * Stress Medical Office Technologist Report: On License Of [facility] Date of service: 04/12/2024 7:27:59 AM Supervising [...] later. See administered radiotracer and doses below. On License Of [facility] Date of service: 04/12/2024 7:27:59 AM Ordering [...] Final * * * Stress ECG Report: On License Of [facility] Date of service: 04/12/2024 7:27:59 AM Ordering physician: RONEN ELDRIDGE control systems specialist: Willie Gonzalez Interpreting physician: Venkata García [...] content not included)... DIVISION OF RADIOLOGY Provider, [facility] [place] - 04/12/2024 * * *Final Report* * * DATE OF EXAM: Apr 12 2024 10:35AM [facility] [place] CARDIAC PERF STRESS/PHARM / PROCEDURE REASON: Encounter for other preprocedural examination * * * * Physician Interpretation * * * * Stress Medical Office Technologist Report: On License Of [facility] Date of service: 04/12/2024 7:27:59 AM Supervising [...] later. See administered radiotracer and doses below. On License Of [facility] Date of service: 04/12/2024 7:27:59 AM Ordering [...] Final * * * Stress ECG Report: On License Of [facility] Date of service: 04/12/2024 7:27:59 AM Ordering physician: RONEN ELDRIDGE control systems specialist: Willie Gonzalez Interpreting physician: Venkata García [...] 120/78 mmHg. The double product achieved was [id number]. Medications: Last Used CARVEDILOL 1 Days LISINOPRIL 1 Days CRESTOR 1 Days Resting ECG: Normal Sinus Rhythm and Rare PACs (<3/Min) Symptoms at rest: N (more content not included)... [facility] Radiology Study observation (narrative) [facility] Heart Perfusion W stress and W radionuclide IVOrdered By: Ccf Provider on 04-12-2024 [facility] Dialysis Vein Map PRE-OP CHELE ATon 03-16-2024 Dialysis Vein Map PRE-OP BILAT Normal [facility] Lower Ext Art Exam w/o Exerc miguel angel 03-16-2024 Lower Ext Art Exam w/o Exercis Normal [facility] Cardiology Visit Reporton Cardiology Visit Report Normal [facility] Endocrinology Visit Reporton 02-25-2024 Endocrinology Visit Report Normal [facility] CNPGloria 02-06-2024 CNPN Telephone (TXCTGL) LAURIE GONZALES ([id number]) 1980 M Date Time Provider Department 02/06/24 KIDNEY TXP COORDINATORS TXCTGL During your visit today, we recorded the following information about you: Genet Persaud 02/06/2024 3:08 PM Signed Patient called regarding an update . Requesting a return call from the commercial coordinator. Please call him at [phone]. Roro Batista, KANDACE 02/10/2024 10:14 AM Signed I spoke with [...] I will follow up with our financial data analyst to assist and give him a [...] AFFECTED AREA FIVE TIMES DAILY - Insulin [place], Disposable, (BD ULTRA-FINE CAROL PEN NEEDLE) 32 gauge x 5/32 ndle Use one needle for each dose. 7/day. - Zn Acetate-Meadowsweet- Woodland ([place]ERIGEL) gel Apply 1 application to affected [...] Status:Closed by RORO POLLARD on 02/10/24 Normal [facility] Basic Metabolic Profile (BMP )on 02-03-2024 BUN Normal 7-18 [facility] Comment on above: Result Comment: Canc elled via OM: Order cancelled - Patient discharged Performed By: #### L 100.0100, L500.2500 ####[facility] [address] [place], [address] BUN/CRE Normal 10-20 [facility] Comment on above: Result Comment: Canc elled via OM: Order cancelled - Patient discharged Performed By: #### L 100.0100, L500.2500 ####[facility] [address] [place], [address] CA,Total Normal 8.5-10.1 [facility] Comment on above: Result Comment: Canc elled via OM: Order cancelled - Patient discharged Performed By: #### L 100.0100, L500.2500 ####[facility] [address] [place], [address] CL Normal 98-107 [facility] Comment on above: Result Comment: Canc elled via OM: Order cancelled - Patient discharged Performed By: #### L 100.0100, L500.2500 ####[facility] [address] [place], [address] CO2 Normal 21.0-32.0 [facility] Comment on above: Result Comment: Canc elled via OM: Order cancelled - Patient discharged Performed By: #### L 100.0100, L500.2500 ####[facility] [address] [place], [address] CREAT,SERUM Normal 0.70-1.30 [facility] Comment on above: Result Comment: Canc elled via OM: Order cancelled - Patient discharged Performed By: #### L 100.0100, L500.2500 ####[facility] [address] [place], [address] EST GFR Normal >60 [facility] Comment on above: Result Comment: Canc elled via OM: Order cancelled - Patient discharged Performed By: #### L 100.0100, L500.2500 ####[facility] [address] [place], [address] EST GFR - AA Normal >60 [facility] [facility] Comment on above: Result Comment: Canc elled via OM: Order cancelled - Patient discharged Performed By: #### L 100.0100, L500.2500 ####[facility] [address] [place], [address] GAP Normal 5-15 [facility] Comment on above: Result Comment: Canc elled via OM: Order cancelled - Patient discharged Performed By: #### L 100.0100, L500.2500 ####[facility] [address] [place], [address] GLU Normal 74-106 [facility] Comment on above: Result Comment: Canc elled via OM: Order cancelled - Patient discharged Performed By: #### L 100.0100, L500.2500 ####[facility] [address] [place], [address] Potassium Normal 3.5-5.1 [facility] Comment on above: Result Comment: Canc elled via OM: Order cancelled - Patient discharged Performed By: #### L 100.0100, L500.2500 ####[facility] [address] [place], [address] Basic Metabolic Profile (BMP) Normal 136-145 [facility] Comment on above: Result Comment: Canc elled via OM: Order cancelled - Patient discharged Performed By: #### L 100.0100, L500.2500 ####[facility] [address] [place], [address] CBC W/Diff, Automatedon 11-0 -2023 Absolute Neut Normal 2.0-7.7 [facility] Comment on above: Result Comment: Canc elled via OM: Order cancelled - Patient discharged Performed By: #### L 100.0100, L500.2500 ####[facility] [address] [place], [address] HCT Normal 40-54 [facility] Comment on above: Result Comment: Canc elled via OM: Order cancelled - Patient discharged Performed By: #### L 100.0100, L500.2500 ####[facility] [address] [place], [address] HGB Normal 13.0-16.5 [facility] Comment on above: Result Comment: Canc elled via OM: Order cancelled - Patient discharged Performed By: #### L 100.0100, L500.2500 ####[facility] [address] [place], [address] MCH Normal 27.0-32.0 [facility] Comment on above: Result Comment: Canc elled via OM: Order cancelled - Patient discharged Performed By: #### L 100.0100, L500.2500 ####[facility] [address] [place], [address] MCHC Normal 32-36 [facility] Comment on above: Result Comment: Canc elled via OM: Order cancelled - Patient discharged Performed By: #### L 100.0100, L500.2500 ####[facility] [address] [place], [address] MCV Normal 80-94 [facility] Comment on above: Result Comment: Canc elled via OM: Order cancelled - Patient discharged Performed By: #### L 100.0100, L500.2500 ####[facility] [address] [place], [address] NEUT% Normal 47-70 [facility] Comment on above: Result Comment: Canc elled via OM: Order cancelled - Patient discharged Performed By: #### L 100.0100, L500.2500 ####[facility] [address] [place], [address] PLT Normal 150-450 [facility] Comment on above: Result Comment: Canc elled via OM: Order cancelled - Patient discharged Performed By: #### L 100.0100, L500.2500 ####[facility] [address] [place], [address] RBC Normal 4.6-6.2 [facility] Comment on above: Result Comment: Canc elled via OM: Order cancelled - Patient discharged Performed By: #### L 100.0100, L500.2500 ####[facility] [address] [place], [address] RDW CV Normal 11.6-14.6 [facility] Comment on above: Result Comment: Canc elled via OM: Order cancelled - Patient discharged Performed By: #### L 100.0100, L500.2500 ####[facility] [address] [place], [address] RDW SD Normal 35.1-43.9 [facility] Comment on above: Result Comment: Canc elled via OM: Order cancelled - Patient discharged Performed By: #### L 100.0100, L500.2500 ####[facility] [address] [place], [address] WBC Normal 4.4-11.0 [facility] Comment on above: Result Comment: Canc elled via OM: Order cancelled - Patient discharged Performed By: #### L 100.0100, L500.2500 ####[facility] [address] [place], [address] Basic Metabolic Profile (BMP )on 02-02-2024 BUN Normal 7-18 [facility] Comment on above: Result Comment: Canc elled via OM: Order cancelled - Patient discharged Performed By: #### L 500.2500, L100.0100 ####[facility] [address] [place], [address] BUN/CRE Normal 10-20 [facility] Comment on above: Result Comment: Canc elled via OM: Order cancelled - Patient discharged Performed By: #### L 500.2500, L100.0100 ####[facility] [address] [place], [address] CA,Total Normal 8.5-10.1 [facility] Comment on above: Result Comment: Canc elled via OM: Order cancelled - Patient discharged Performed By: #### L 500.2500, L100.0100 ####[facility] [address] [place], [address] CL Normal 98-107 [facility] Comment on above: Result Comment: Canc elled via OM: Order cancelled - Patient discharged Performed By: #### L 500.2500, L100.0100 ####[facility] [address] [place], [address] CO2 Normal 21.0-32.0 [facility] Comment on above: Result Comment: Canc elled via OM: Order cancelled - Patient discharged Performed By: #### L 500.2500, L100.0100 ####[facility] [address] [place], [address] CREAT,SERUM Normal 0.70-1.30 [facility] Comment on above: Result Comment: Canc elled via OM: Order cancelled - Patient discharged Performed By: #### L 500.2500, L100.0100 ####[facility] [address] [place], [address] EST GFR Normal >60 [facility] Comment on above: Result Comment: Canc elled via OM: Order cancelled - Patient discharged Performed By: #### L 500.2500, L100.0100 ####[facility] [address] [place], [address] EST GFR - AA Normal >60 [facility] Comment on above: Result Comment: Canc elled via OM: Order cancelled - Patient discharged Performed By: #### L 500.2500, L100.0100 ####[facility] [address] [place], [address] GAP Normal 5-15 [facility] Comment on above: Result Comment: Canc elled via OM: Order cancelled - Patient discharged Performed By: #### L 500.2500, L100.0100 ####[facility] [address] [place], [address] GLU Normal 74-106 [facility] Comment on above: Result Comment: Canc elled via OM: Order cancelled - Patient discharged Performed By: #### L 500.2500, L100.0100 ####[facility] [address] [place], [address] Potassium Normal 3.5-5.1 [facility] Comment on above: Result Comment: Canc elled via OM: Order cancelled - Patient discharged Performed By: #### L 500.2500, L100.0100 ####[facility] [address] [place], [address] Basic Metabolic Profile (BMP) Normal 136-145 [facility] Comment on above: Result Comment: Canc elled via OM: Order cancelled - Patient discharged Performed By: #### L 500.2500, L100.0100 ####[facility] [address] [place], [address] CBC W/Diff, Automatedon 11-0 -2023 Absolute Neut Normal 2.0-7.7 [facility] Comment on above: Result Comment: Canc elled via OM: Order cancelled - Patient discharged Performed By: #### L 500.2500, L100.0100 ####[facility] [address] [place], [address] HCT Normal 40-54 [facility] Comment on above: Result Comment: Canc elled via OM: Order cancelled - Patient discharged Performed By: #### L 500.2500, L100.0100 ####[facility] [address] [place], [address] HGB Normal 13.0-16.5 [facility] Comment on above: Result Comment: Canc elled via OM: Order cancelled - Patient discharged Performed By: #### L 500.2500, L100.0100 ####[facility] [address] [place], [address] MCH Normal 27.0-32.0 [facility] Comment on above: Result Comment: Canc elled via OM: Order cancelled - Patient discharged Performed By: #### L 500.2500, L100.0100 ####[facility] [address] [place], [address] MCHC Normal 32-36 [facility] Comment on above: Result Comment: Canc elled via OM: Order cancelled - Patient discharged Performed By: #### L 500.2500, L100.0100 ####[facility] [address] [place], [address] MCV Normal 80-94 [facility] Comment on above: Result Comment: Canc elled via OM: Order cancelled - Patient discharged Performed By: #### L 500.2500, L100.0100 ####[facility] [address] [place], [address] NEUT% Normal 47-70 [facility] Comment on above: Result Comment: Canc elled via OM: Order cancelled - Patient discharged Performed By: #### L 500.2500, L100.0100 ####[facility] [address] [place], [address] PLT Normal 150-450 [facility] Comment on above: Result Comment: Canc elled via OM: Order cancelled - Patient discharged Performed By: #### L 500.2500, L100.0100 ####[facility] [address] [place], [address] RBC Normal 4.6-6.2 [facility] Comment on above: Result Comment: Canc elled via OM: Order cancelled - Patient discharged Performed By: #### L 500.2500, L100.0100 ####[facility] [address] [place], [address] RDW CV Normal 11.6-14.6 [facility] Comment on above: Result Comment: Canc elled via OM: Order cancelled - Patient discharged Performed By: #### L 500.2500, L100.0100 ####[facility] [address] [place], [address] RDW SD Normal 35.1-43.9 [facility] Comment on above: Result Comment: Canc elled via OM: Order cancelled - Patient discharged Performed By: #### L 500.2500, L100.0100 ####[facility] [address] [place], [address] WBC Normal 4.4-11.0 [facility] Comment on above: Result Comment: Canc elled via OM: Order cancelled - Patient discharged Performed By: #### L 500.2500, L100.0100 ####[facility] [address] [place], [address] Basic Metabolic Profile (BMP )on 02-01-2024 BUN Normal 7-18 [facility] Comment on above: Result Comment: Canc elled via OM: Order cancelled - Patient discharged Performed By: #### L 500.2500, L100.0100 ####[facility] [address] [place], [address] BUN/CRE Normal 10-20 [facility] Comment on above: Result Comment: Canc elled via OM: Order cancelled - Patient discharged Performed By: #### L 500.2500, L100.0100 ####[facility] [address] [place], [address] CA,Total Normal 8.5-10.1 [facility] Comment on above: Result Comment: Canc elled via OM: Order cancelled - Patient discharged Performed By: #### L 500.2500, L100.0100 ####[facility] [address] [place], [address] CL Normal 98-107 [facility] Comment on above: Result Comment: Canc elled via OM: Order cancelled - Patient discharged Performed By: #### L 500.2500, L100.0100 ####[facility] [address] [place], [address] CO2 Normal 21.0-32.0 [facility] Comment on above: Result Comment: Canc elled via OM: Order cancelled - Patient discharged Performed By: #### L 500.2500, L100.0100 ####[facility] [address] [place], [address] CREAT,SERUM Normal 0.70-1.30 [facility] Comment on above: Result Comment: Canc elled via OM: Order cancelled - Patient discharged Performed By: #### L 500.2500, L100.0100 ####[facility] [address] [place], [address] EST GFR Normal >60 [facility] Comment on above: Result Comment: Canc elled via OM: Order cancelled - Patient discharged Performed By: #### L 500.2500, L100.0100 ####[facility] [address] [place], [address] EST GFR - AA Normal >60 [facility] Comment on above: Result Comment: Canc elled via OM: Order cancelled - Patient discharged Performed By: #### L 500.2500, L100.0100 ####[facility] [address] [place], [address] GAP Normal 5-15 [facility] Comment on above: Result Comment: Canc elled via OM: Order cancelled - Patient discharged Performed By: #### L 500.2500, L100.0100 ####[facility] [address] [place], [address] GLU Normal 74-106 [facility] Comment on above: Result Comment: Canc elled via OM: Order cancelled - Patient discharged Performed By: #### L 500.2500, L100.0100 ####[facility] [address] [place], [address] Potassium Normal 3.5-5.1 [facility] Comment on above: Result Comment: Canc elled via OM: Order cancelled - Patient discharged Performed By: #### L 500.2500, L100.0100 ####[facility] [address] [place], [address] Basic Metabolic Profile (BMP) Normal 136-145 [facility] Comment on above: Result Comment: Canc elled via OM: Order cancelled - Patient discharged Performed By: #### L 500.2500, L100.0100 ####[facility] [address] [place], [address] CBC W/Diff, Automatedon 11-0 Absolute Neut Normal 2.0-7.7 [facility] Comment on above: Result Comment: Canc elled via OM: Order cancelled - Patient discharged Performed By: #### L 500.2500, L100.0100 ####[facility] [address] [place], [address] HCT Normal 40-54 [facility] Comment on above: Result Comment: Canc elled via OM: Order cancelled - Patient discharged Performed By: #### L 500.2500, L100.0100 ####[facility] [address] [place], [address] HGB Normal 13.0-16.5 [facility] Comment on above: Result Comment: Canc elled via OM: Order cancelled - Patient discharged Performed By: #### L 500.2500, L100.0100 ####[facility] [address] [place], [address] MCH Normal 27.0-32.0 [facility] Comment on above: Result Comment: Canc elled via OM: Order cancelled - Patient discharged Performed By: #### L 500.2500, L100.0100 ####[facility] [address] [place], [address] MCHC Normal 32-36 [facility] Comment on above: Result Comment: Canc elled via OM: Order cancelled - Patient discharged Performed By: #### L 500.2500, L100.0100 ####[facility] [address] [place], [address] MCV Normal 80-94 [facility] Comment on above: Result Comment: Canc elled via OM: Order cancelled - Patient discharged Performed By: #### L 500.2500, L100.0100 ####[facility] [address] [place], [address] NEUT% Normal 47-70 [facility] Comment on above: Result Comment: Canc elled via OM: Order cancelled - Patient discharged Performed By: #### L 500.2500, L100.0100 ####[facility] [address] [place], [address] PLT Normal 150-450 [facility] Comment on above: Result Comment: Canc elled via OM: Order cancelled - Patient discharged Performed By: #### L 500.2500, L100.0100 ####[facility] [address] [place], [address] RBC Normal 4.6-6.2 [facility] Comment on above: Result Comment: Canc elled via OM: Order cancelled - Patient discharged Performed By: #### L 500.2500, L100.0100 ####[facility] [address] [place], [address] RDW CV Normal 11.6-14.6 [facility] Comment on above: Result Comment: Canc elled via OM: Order cancelled - Patient discharged Performed By: #### L 500.2500, L100.0100 ####[facility] [address] [place], [address] RDW SD Normal 35.1-43.9 [facility] Comment on above: Result Comment: Canc elled via OM: Order cancelled - Patient discharged Performed By: #### L 500.2500, L100.0100 ####[facility] [address] [place], [address] WBC Normal 4.4-11.0 [facility] Comment on above: Result Comment: Canc elled via OM: Order cancelled - Patient discharged Performed By: #### L 500.2500, L100.0100 ####[facility] [address] [place], [address] Basic Metabolic Profile (BMP )on 01-31-2024 BUN/CRE 6.8 RATIO Low 10-20 [facility] Comment on above: Performed By: #### L 100.0100, L500.2500 ####[facility] [address] [place], [address] CA,Total 9.4 mg/dL Normal 8.5-10.1 [facility] Comment on above: Performed By: #### L 100.0100, L500.2500 ####[facility] [address] [place], [address] Chloride [Moles/Vol] 110 mmol/L High 98-107 [facility] Comment on above: Performed By: #### L 100.0100, L500.2500 ####[facility] [address] [place], [address] CO2 [Moles/Vol] 25.0 mmol/L Normal 21.0-32.0 [facility] Comment on above: Performed By: #### L 100.0100, L500.2500 ####[facility] [address] [place], [address] Creatinine [Mass/Vol] 4.69 mg/dL High 0.70-1.30 [facility] Comment on above: Result Comment: The validity of the calculated GFR GFRAA in patients over70 years has not been determined. Clinical correlation isessential. Performed By: #### L 100.0100, L500.2500 ####[facility] [address] [place], [address] ECRCL 22.08 ml/min Normal [facility] Comment on above: Performed By: #### L 100.0100, L500.2500 ####[facility] [address] [place], [address] EST GFR - AA 18 mL/min Low >60 [facility] Comment on above: Result Comment: Afri can Bahamian GFR Calc Performed By: #### L 100.0100, L500.2500 ####[facility] [address] [place], [address] GAP 4 Low 5-15 [facility] Comment on above: Performed By: #### L 100.0100, L500.2500 ####[facility] [address] [place], [address] GFR/1.73 sq M.predicted among non-blacks MDRD (S/P/Bld) [Vol rate/Area] 15 mL/min/{1.73_m2} Low >60 [facility] Comment on above: Result Comment: Non- GFR Calc Performed By: #### L 100.0100, L500.2500 ####[facility] [address] [place], [address] Glucose [Mass/Vol] 143 mg/dL High 74-106 [facility] Comment on above: Result Comment: Fast ing Glucose result greater than or equal to 126 mg/dLsuggests DIABETES MELLITUS per A.D.A. criteria. Performed By: #### L 100.0100, L500.2500 ####[facility] [address] [place], [address] Potassium [Moles/Vol] 3.9 mmol/L Normal 3.5-5.1 [facility] Comment on above: Performed By: #### L 100.0100, L500.2500 ####[facility] [address] [place], [address] Sodium [Moles/Vol] 139 mmol/L Normal 136-145 [facility] Comment on above: Performed By: #### L 100.0100, L500.2500 ####[facility] [address] [place], [address] Urea nitrogen [Mass/Vol] 32 mg/dL High 7-18 [facility] Comment on above: Performed By: #### L 100.0100, L500.2500 ####[facility] [address] [place], [address] CBC W/Diff, Automatedon 11-0 2-2024 Absolute Lymph 1.39 X10 3/uL Normal 0.83-4.51 [facility] Comment on above: Performed By: #### L 100.0100, L500.2500 ####[facility] [address] [place], [address] Absolute Neut 5.3 X10 3/uL Normal 2.0-7.7 [facility] Comment on above: Performed By: #### L 100.0100, L500.2500 ####[facility] [address] [place], [address] Basophils/100 WBC (Bld) 1.0 % Normal 0-1 [facility] Comment on above: Performed By: #### L 100.0100, L500.2500 ####[facility] [address] [place], [address] Eosinophils/100 WBC (Bld) 4.5 % Normal 0-5 [facility] Comment on above: Performed By: #### L 100.0100, L500.2500 ####[facility] [address] [place], [address] Erythrocyte distribution width (RBC) [Ratio] 13.3 % Normal 11.6-14.6 [facility] Comment on above: Performed By: #### L 100.0100, L500.2500 ####[facility] [address] [place], [address] Hematocrit (Bld) [Volume fraction] 27.9 % Low 40-54 [facility] Comment on above: Performed By: #### L 100.0100, L500.2500 ####[facility] [address] [place], [address] Hemoglobin (Bld) [Mass/Vol] 8.9 g/dL Low 13.0-16. 5 [facility] Comment on above: Performed By: #### L 100.0100, L500.2500 ####[facility] [address] [place], [address] IG% 1.100 High 0.0-0.9 [facility] Comment on above: Result Comment: IG% - Immature Granulocytes (promyelocytes, myelocytes andmetamyelocytes) > 1% indicates that a LEFT SHIFT is Present. Performed By: #### L 100.0100, L500.2500 ####[facility] [address] [place], [address] Lymphocytes/100 WBC (Bld) 17.0 % Low 19-41 [facility] Comment on above: Performed By: #### L 100.0100, L500.2500 ####[facility] [address] [place], [address] MCH (RBC) [Entitic mass] 27.1 pg Normal 27.0-32.0 [facility] Comment on above: Performed By: #### L 100.0100, L500.2500 ####[facility] [address] [place], [address] MCHC (RBC) [Mass/Vol] 31.9 g/dL Low 32-36 [facility] Comment on above: Performed By: #### L 100.0100, L500.2500 ####[facility] [address] [place], [address] MCV (RBC) [Entitic vol] 84.8 fL Normal 80-94 [facility] Comment on above: Performed By: #### L 100.0100, L500.2500 ####[facility] [address] [place], [address] Monocytes/100 WBC (Bld) 12.4 % High 0-10 [facility] Comment on above: Performed By: #### L 100.0100, L500.2500 ####[facility] [address] [place], [address] Neutrophils/100 WBC (Bld) 64.0 % Normal 47-70 [facility] Comment on above: Performed By: #### L 100.0100, L500.2500 ####[facility] [address] [place], [address] Nucleated RBC (Bld) [#/Vol] 0 10*3/uL Normal 0-5 [facility] Comment on above: Performed By: #### L 100.0100, L500.2500 ####[facility] [address] [place], [address] Platelet mean volume (Bld) [Entitic vol] 8.9 fL Normal 6.2-12.0 [facility] Comment on above: Performed By: #### L 100.0100, L500.2500 ####[facility] [address] [place], [address] Platelets (Bld) [#/Vol] 388 10*3/uL Normal 150-450 [facility] Comment on above: Performed By: #### L 100.0100, L500.2500 ####[facility] [address] [place], [address] RBC (Bld) [#/Vol] 3.29 10*6/uL Low 4.6-6.2 [facility] Comment on above: Performed By: #### L 100.0100, L500.2500 ####[facility] [address] [place], [address] RDW SD 41.1 fl Normal 35.1-43.9 [facility] Comment on above: Performed By: #### L 100.0100, L500.2500 ####[facility] [address] [place], [address] WBC (Bld) [#/Vol] 8.2 10*3/uL Normal 4.4-11.0 [facility] Comment on above: Performed By: #### L 100.0100, L500.2500 ####[facility] [address] [place], [address] CDIFF (PCR)on 01-31-2024 CDIFF Normal [facility] Comment on above: Performed By: #### M 100.6796 ####[facility] [address] [place], [address] Culture, Blood (WB)on 2023 CUB Normal [facility] Comment on above: Performed By: #### M 200.1000, M100.636 ####[facility] [address] [place], [address] Discharge Instructionon Discharge Instruction Normal [facility] Stool Occult Blood iFOBon STOB Positive Normal [facility] Comment on above: Performed By: #### M 100.7900 ####[facility] [address] [place], [address] 12 Lead EKGon 01-30-2024 12 Lead EKG Normal [facility] Basic Metabolic Profile (BMP )on 01-30-2024 BUN/CRE 7.2 RATIO Low 10-20 [facility] Comment on above: Performed By: #### L 500.2500, L100.0100 ####[facility] [address] [place], [address] CA,Total 9.2 mg/dL Normal 8.5-10.1 [facility] Comment on above: Performed By: #### L 500.2500, L100.0100 ####[facility] [address] [place], [address] Chloride [Moles/Vol] 108 mmol/L High 98-107 [facility] Comment on above: Performed By: #### L 500.2500, L100.0100 ####[facility] [address] [place], [address] CO2 [Moles/Vol] 25.0 mmol/L Normal 21.0-32.0 [facility] Comment on above: Performed By: #### L 500.2500, L100.0100 ####[facility] [address] [place], [address] Creatinine [Mass/Vol] 5.15 mg/dL High 0.70-1.30 [facility] Comment on above: Result Comment: The validity of the calculated GFR GFRAA in patients over70 years has not been determined. Clinical correlation isessential. Performed By: #### L 500.2500, L100.0100 ####[facility] [address] [place], [address] ECRCL 21.83 ml/min Normal [facility] Comment on above: Performed By: #### L 500.2500, L100.0100 ####[facility] [address] [place], [address] EST GFR - AA 16 mL/min Low >60 [facility] Comment on above: Result Comment: Afri can Bahamian GFR Calc Performed By: #### L 500.2500, L100.0100 ####[facility] [address] [place], [address] GAP 6 Normal 5-15 [facility] Comment on above: Performed By: #### L 500.2500, L100.0100 ####[facility] [address] [place], [address] GFR/1.73 sq M.predicted among non-blacks MDRD (S/P/Bld) [Vol rate/Area] 13 mL/min/{1.73_m2} Low >60 [facility] Comment on above: Result Comment: Non- GFR Calc Performed By: #### L 500.2500, L100.0100 ####[facility] [address] [place], [address] Glucose [Mass/Vol] 147 mg/dL High 74-106 [facility] Comment on above: Result Comment: Fast ing Glucose result greater than or equal to 126 mg/dLsuggests DIABETES MELLITUS per A.D.A. criteria. Performed By: #### L 500.2500, L100.0100 ####[facility] [address] [place], [address] Potassium [Moles/Vol] 3.7 mmol/L Normal 3.5-5.1 [facility] Comment on above: Performed By: #### L 500.2500, L100.0100 ####[facility] [address] [place], [address] Sodium [Moles/Vol] 139 mmol/L Normal 136-145 [facility] Comment on above: Performed By: #### L 500.2500, L100.0100 ####[facility] [address] [place], [address] Urea nitrogen [Mass/Vol] 37 mg/dL High 7-18 [facility] Comment on above: Performed By: #### L 500.2500, L100.0100 ####[facility] [address] [place], [address] Bedside Glucoseon 01-30-2024 FINGERSTICK GLU 107 mg/dL High 74-106 [facility] Comment on above: Result Comment: EDUARDO GEMENT OF PATIENT CARE PER NURSING PROTOCOL Performed By: #### L 501.080 ####[facility] [address] [place], [address] FINGERSTICK GLU 117 mg/dL High 74-106 [facility] Comment on above: Result Comment: EDUARDO GEMENT OF PATIENT CARE PER NURSING PROTOCOL Performed By: #### L 501.080 ####[facility] [address] [place], [address] CBC W/Diff, Automatedon 11-0 1-2024 Absolute Lymph 1.21 X10 3/uL Normal 0.83-4.51 [facility] Comment on above: Performed By: #### L 500.2500, L100.0100 ####[facility] [address] [place], [address] Absolute Neut 4.2 X10 3/uL Normal 2.0-7.7 [facility] Comment on above: Performed By: #### L 500.2500, L100.0100 ####[facility] [address] [place], [address] Basophils/100 WBC (Bld) 1.0 % Normal 0-1 [facility] Comment on above: Performed By: #### L 500.2500, L100.0100 ####[facility] [address] [place], [address] Eosinophils/100 WBC (Bld) 5.2 % High 0-5 [facility] Comment on above: Performed By: #### L 500.2500, L100.0100 ####[facility] [address] [place], [address] Erythrocyte distribution width (RBC) [Ratio] 13.2 % Normal 11.6-14.6 [facility] Comment on above: Performed By: #### L 500.2500, L100.0100 ####[facility] [address] [place], [address] Hematocrit (Bld) [Volume fraction] 26.8 % Low 40-54 [facility] Comment on above: Performed By: #### L 500.2500, L100.0100 ####[facility] [address] [place], [address] Hemoglobin (Bld) [Mass/Vol] 8.3 g/dL Low 13.0-16. 5 [facility] Comment on above: Performed By: #### L 500.2500, L100.0100 ####[facility] [address] [place], [address] IG% 0.700 Normal 0.0-0.9 [facility] Comment on above: Result Comment: IG% - Immature Granulocytes (promyelocytes, myelocytes andmetamyelocytes) > 1% indicates that a LEFT SHIFT is Present. Performed By: #### L 500.2500, L100.0100 ####[facility] [address] [place], [address] Lymphocytes/100 WBC (Bld) 17.8 % Low 19-41 [facility] Comment on above: Performed By: #### L 500.2500, L100.0100 ####[facility] [address] [place], [address] MCH (RBC) [Entitic mass] 26.3 pg Low 27.0-32.0 [facility] Comment on above: Performed By: #### L 500.2500, L100.0100 ####[facility] [address] [place], [address] MCHC (RBC) [Mass/Vol] 31.0 g/dL Low 32-36 [facility] Comment on above: Performed By: #### L 500.2500, L100.0100 ####[facility] [address] [place], [address] MCV (RBC) [Entitic vol] 84.8 fL Normal 80-94 [facility] Comment on above: Performed By: #### L 500.2500, L100.0100 ####[facility] [address] [place], [address] Monocytes/100 WBC (Bld) 12.8 % High 0-10 [facility] Comment on above: Performed By: #### L 500.2500, L100.0100 ####[facility] [address] [place], [address] Neutrophils/100 WBC (Bld) 62.5 % Normal 47-70 [facility] Comment on above: Performed By: #### L 500.2500, L100.0100 ####[facility] [address] [place], [address] Nucleated RBC (Bld) [#/Vol] 0 10*3/uL Normal 0-5 [facility] Comment on above: Performed By: #### L 500.2500, L100.0100 ####[facility] [address] [place], [address] Platelet mean volume (Bld) [Entitic vol] 9.0 fL Normal 6.2-12.0 [facility] Comment on above: Performed By: #### L 500.2500, L100.0100 ####[facility] [address] [place], [address] Platelets (Bld) [#/Vol] 374 10*3/uL Normal 150-450 [facility] Comment on above: Performed By: #### L 500.2500, L100.0100 ####[facility] [address] [place], [address] RBC (Bld) [#/Vol] 3.16 10*6/uL Low 4.6-6.2 [facility] Comment on above: Performed By: #### L 500.2500, L100.0100 ####[facility] [address] [place], [address] RDW SD 41.1 fl Normal 35.1-43.9 [facility] Comment on above: Performed By: #### L 500.2500, L100.0100 ####[facility] [address] [place], [address] WBC (Bld) [#/Vol] 6.8 10*3/uL Normal 4.4-11.0 [facility] Comment on above: Performed By: #### L 500.2500, L100.0100 ####[facility] [address] [place], [address] CXR for Line Placementon CXR for Line Placement Normal [facility] MR/POSTOP.ANEon 01-30-2024 MR/POSTOP.ANE Normal [facility] MR/TWQEPBIC7wr 01-30-2024 MR/POSTOPAN2 Normal [facility] Operative Reporton Operative Report Normal [facility] Partial Thromboplast Timeon 01-30-2024 aPTT Coag (Bld) [Time] 28.8 s Normal 24.1-36.2 [facility] Comment on above: Order Comment: Comme nts: Pre-Op Orders Performed By: #### L 300.4310 ####[facility] [address] [place], [address] Basic Metabolic Profile (BMP )on 01-29-2024 BUN/CRE 7.6 RATIO Low - [facility] Comment on above: Performed By: #### L 100.0100, L500.2500 ####[facility] [address] [place], [address] CA,Total 9.3 mg/dL Normal 8.5-10.1 [facility] Comment on above: Performed By: #### L 100.0100, L500.2500 ####[facility] [address] [place], [address] Chloride [Moles/Vol] 105 mmol/L Normal 98-107 [facility] Comment on above: Performed By: #### L 100.0100, L500.2500 ####[facility] [address] [place], [address] CO2 [Moles/Vol] 26.0 mmol/L Normal 21.0-32.0 [facility] Comment on above: Performed By: #### L 100.0100, L500.2500 ####[facility] [address] [place], [address] Creatinine [Mass/Vol] 4.73 mg/dL High 0.70-1.30 [facility] Comment on above: Result Comment: The validity of the calculated GFR GFRAA in patients over70 years has not been determined. Clinical correlation isessential. Performed By: #### L 100.0100, L500.2500 ####[facility] [address] [place], [address] ECRCL 23.81 ml/min Normal [facility] Comment on above: Performed By: #### L 100.0100, L500.2500 ####[facility] [address] [place], [address] EST GFR - AA 18 mL/min Low >60 [facility] Comment on above: Result Comment: Afri can Bahamian GFR Calc Performed By: #### L 100.0100, L500.2500 ####[facility] [address] [place], [address] GAP 6 Normal 5-15 [facility] Comment on above: Performed By: #### L 100.0100, L500.2500 ####[facility] [address] [place], [address] GFR/1.73 sq M.predicted among non-blacks MDRD (S/P/Bld) [Vol rate/Area] 15 mL/min/{1.73_m2} Low >60 [facility] Comment on above: Result Comment: Non- GFR Calc Performed By: #### L 100.0100, L500.2500 ####[facility] [address] [place], [address] Glucose [Mass/Vol] 154 mg/dL High 74-106 [facility] Comment on above: Result Comment: Fast ing Glucose result greater than or equal to 126 mg/dLsuggests DIABETES MELLITUS per A.D.A. criteria. Performed By: #### L 100.0100, L500.2500 ####[facility] [address] [place], [address] Potassium [Moles/Vol] 3.8 mmol/L Normal 3.5-5.1 [facility] Comment on above: Performed By: #### L 100.0100, L500.2500 ####[facility] [address] [place], [address] Sodium [Moles/Vol] 137 mmol/L Normal 136-145 [facility] Comment on above: Performed By: #### L 100.0100, L500.2500 ####[facility] [address] [place], [address] Urea nitrogen [Mass/Vol] 36 mg/dL High 7-18 [facility] Comment on above: Performed By: #### L 100.0100, L500.2500 ####[facility] [address] [place], [address] CBC W/Diff, Automatedon 10-3 -2023 Absolute Lymph 1.16 X10 3/uL Normal 0.83-4.51 [facility] Comment on above: Performed By: #### L 100.0100, L500.2500 ####[facility] [address] [place], [address] Absolute Neut 4.9 X10 3/uL Normal 2.0-7.7 [facility] Comment on above: Performed By: #### L 100.0100, L500.2500 ####[facility] [address] [place], [address] Basophils/100 WBC (Bld) 1.2 % High 0-1 [facility] Comment on above: Performed By: #### L 100.0100, L500.2500 ####[facility] [address] [place], [address] Eosinophils/100 WBC (Bld) 4.7 % Normal 0-5 [facility] Comment on above: Performed By: #### L 100.0100, L500.2500 ####[facility] [address] [place], [address] Erythrocyte distribution width (RBC) [Ratio] 13.1 % Normal 11.6-14.6 [facility] Comment on above: Performed By: #### L 100.0100, L500.2500 ####[facility] [address] [place], [address] Hematocrit (Bld) [Volume fraction] 24.5 % Low 40-54 [facility] Comment on above: Performed By: #### L 100.0100, L500.2500 ####[facility] [address] [place], [address] Hemoglobin (Bld) [Mass/Vol] 8.1 g/dL Low 13.0-16. 5 [facility] Comment on above: Performed By: #### L 100.0100, L500.2500 ####[facility] [address] [place], [address] IG% 0.500 Normal 0.0-0.9 [facility] Comment on above: Result Comment: IG% - Immature Granulocytes (promyelocytes, myelocytes andmetamyelocytes) > 1% indicates that a LEFT SHIFT is Present. Performed By: #### L 100.0100, L500.2500 ####[facility] [address] [place], [address] Lymphocytes/100 WBC (Bld) 15.6 % Low 19-41 [facility] Comment on above: Performed By: #### L 100.0100, L500.2500 ####[facility] [address] [place], [address] MCH (RBC) [Entitic mass] 27.5 pg Normal 27.0-32.0 [facility] Comment on above: Performed By: #### L 100.0100, L500.2500 ####[facility] [address] [place], [address] MCHC (RBC) [Mass/Vol] 33.1 g/dL Normal 32-36 [facility] Comment on above: Performed By: #### L 100.0100, L500.2500 ####[facility] [address] [place], [address] MCV (RBC) [Entitic vol] 83.1 fL Normal 80-94 [facility] Comment on above: Performed By: #### L 100.0100, L500.2500 ####[facility] [address] [place], [address] Monocytes/100 WBC (Bld) 12.5 % High 0-10 [facility] Comment on above: Performed By: #### L 100.0100, L500.2500 ####[facility] [address] [place], [address] Neutrophils/100 WBC (Bld) 65.5 % Normal 47-70 [facility] Comment on above: Performed By: #### L 100.0100, L500.2500 ####[facility] [address] [place], [address] Nucleated RBC (Bld) [#/Vol] 0 10*3/uL Normal 0-5 [facility] Comment on above: Performed By: #### L 100.0100, L500.2500 ####[facility] [address] [place], [address] Platelet mean volume (Bld) [Entitic vol] 9.6 fL Normal 6.2-12.0 [facility] Comment on above: Performed By: #### L 100.0100, L500.2500 ####[facility] [address] [place], [address] Platelets (Bld) [#/Vol] 327 10*3/uL Normal 150-450 [facility] Comment on above: Performed By: #### L 100.0100, L500.2500 ####[facility] [address] [place], [address] RBC (Bld) [#/Vol] 2.95 10*6/uL Low 4.6-6.2 [facility] Comment on above: Performed By: #### L 100.0100, L500.2500 ####[facility] [address] [place], [address] RDW SD 39.6 fl Normal 35.1-43.9 [facility] Comment on above: Performed By: #### L 100.0100, L500.2500 ####[facility] [address] [place], [address] WBC (Bld) [#/Vol] 7.4 10*3/uL Normal 4.4-11.0 [facility] Comment on above: Performed By: #### L 100.0100, L500.2500 ####[facility] [address] [place], [address] Consultation - Surgicalon Consultation - Surgical Normal [facility] Basic Metabolic Profile (BMP )on 01-28-2024 BUN/CRE 8.5 RATIO Low 10-20 [facility] Comment on above: Performed By: #### L 100.0100, L500.2500 ####[facility] [address] [place], [address] CA,Total 9.1 mg/dL Normal 8.5-10.1 [facility] Comment on above: Performed By: #### L 100.0100, L500.2500 ####[facility] [address] [place], [address] Chloride [Moles/Vol] 105 mmol/L Normal 98-107 [facility] Comment on above: Performed By: #### L 100.0100, L500.2500 ####[facility] [address] [place], [address] CO2 [Moles/Vol] 24.0 mmol/L Normal 21.0-32.0 [facility] Comment on above: Performed By: #### L 100.0100, L500.2500 ####[facility] [address] [place], [address] Creatinine [Mass/Vol] 6.32 mg/dL High 0.70-1.30 [facility] Comment on above: Result Comment: The validity of the calculated GFR GFRAA in patients over70 years has not been determined. Clinical correlation isessential. Performed By: #### L 100.0100, L500.2500 ####[facility] [address] [place], [address] ECRCL 17.97 ml/min Normal [facility] Comment on above: Performed By: #### L 100.0100, L500.2500 ####[facility] [address] [place], [address] EST GFR - AA 13 mL/min Low >60 [facility] Comment on above: Result Comment: Afri can Bahamian GFR Calc Performed By: #### L 100.0100, L500.2500 ####[facility] [address] [place], [address] GAP 7 Normal 5-15 [facility] Comment on above: Performed By: #### L 100.0100, L500.2500 ####[facility] [address] [place], [address] GFR/1.73 sq M.predicted among non-blacks MDRD (S/P/Bld) [Vol rate/Area] 10 mL/min/{1.73_m2} Low >60 [facility] Comment on above: Result Comment: Non- GFR Calc Performed By: #### L 100.0100, L500.2500 ####[facility] [address] [place], [address] Glucose [Mass/Vol] 264 mg/dL High 74-106 [facility] Comment on above: Result Comment: Gluc ose result greater than or equal to 200 mg/dLsuggests DIABETES MELLITUS per A.D.A. criteria. Performed By: #### L 100.0100, L500.2500 ####[facility] [address] [place], [address] Potassium [Moles/Vol] 3.7 mmol/L Normal 3.5-5.1 [facility] Comment on above: Performed By: #### L 100.0100, L500.2500 ####[facility] [address] [place], [address] Sodium [Moles/Vol] 136 mmol/L Normal 136-145 [facility] Comment on above: Performed By: #### L 100.0100, L500.2500 ####[facility] [address] [place], [address] Urea nitrogen [Mass/Vol] 54 mg/dL High 7-18 [facility] Comment on above: Performed By: #### L 100.0100, L500.2500 ####[facility] [address] [place], [address] CBC W/Diff, Automatedon 10-3 0-4 Absolute Lymph 0.84 X10 3/uL Normal 0.83-4.51 [facility] Comment on above: Performed By: #### L 100.0100, L500.2500 ####[facility] [address] [place], [address] Absolute Neut 7.0 X10 3/uL Normal 2.0-7.7 [facility] Comment on above: Performed By: #### L 100.0100, L500.2500 ####[facility] [address] [place], [address] Basophils/100 WBC (Bld) 0.5 % Normal 0-1 [facility] Comment on above: Performed By: #### L 100.0100, L500.2500 ####[facility] [address] [place], [address] Eosinophils/100 WBC (Bld) 4.3 % Normal 0-5 [facility] Comment on above: Performed By: #### L 100.0100, L500.2500 ####[facility] [address] [place], [address] Erythrocyte distribution width (RBC) [Ratio] 13.4 % Normal 11.6-14.6 [facility] Comment on above: Performed By: #### L 100.0100, L500.2500 ####[facility] [address] [place], [address] Hematocrit (Bld) [Volume fraction] 24.0 % Low 40-54 [facility] Comment on above: Performed By: #### L 100.0100, L500.2500 ####[facility] [address] [place], [address] Hemoglobin (Bld) [Mass/Vol] 7.7 g/dL Low 13.0-16. 5 [facility] Comment on above: Performed By: #### L 100.0100, L500.2500 ####[facility] [address] [place], [address] IG% 0.600 Normal 0.0-0.9 [facility] Comment on above: Result Comment: IG% - Immature Granulocytes (promyelocytes, myelocytes andmetamyelocytes) > 1% indicates that a LEFT SHIFT is Present. Performed By: #### L 100.0100, L500.2500 ####[facility] [address] [place], [address] Lymphocytes/100 WBC (Bld) 9.0 % Low 19-41 [facility] Comment on above: Performed By: #### L 100.0100, L500.2500 ####[facility] [address] [place], [address] MCH (RBC) [Entitic mass] 26.9 pg Low 27.0-32.0 [facility] Comment on above: Performed By: #### L 100.0100, L500.2500 ####[facility] [address] [place], [address] MCHC (RBC) [Mass/Vol] 32.1 g/dL Normal 32-36 [facility] Comment on above: Performed By: #### L 100.0100, L500.2500 ####[facility] [address] [place], [address] MCV (RBC) [Entitic vol] 83.9 fL Normal 80-94 [facility] Comment on above: Performed By: #### L 100.0100, L500.2500 ####[facility] [address] [place], [address] Monocytes/100 WBC (Bld) 10.1 % High 0-10 [facility] Comment on above: Performed By: #### L 100.0100, L500.2500 ####[facility] [address] [place], [address] Neutrophils/100 WBC (Bld) 75.5 % High 47-70 [facility] Comment on above: Performed By: #### L 100.0100, L500.2500 ####[facility] [address] [place], [address] Nucleated RBC (Bld) [#/Vol] 0 10*3/uL Normal 0-5 [facility] Comment on above: Performed By: #### L 100.0100, L500.2500 ####[facility] [address] [place], [address] Platelet mean volume (Bld) [Entitic vol] 9.5 fL Normal 6.2-12.0 [facility] Comment on above: Performed By: #### L 100.0100, L500.2500 ####[facility] [address] [place], [address] Platelets (Bld) [#/Vol] 270 10*3/uL Normal 150-450 [facility] Comment on above: Performed By: #### L 100.0100, L500.2500 ####[facility] [address] [place], [address] RBC (Bld) [#/Vol] 2.86 10*6/uL Low 4.6-6.2 [facility] Comment on above: Performed By: #### L 100.0100, L500.2500 ####[facility] [address] [place], [address] RDW SD 41.4 fl Normal 35.1-43.9 [facility] Comment on above: Performed By: #### L 100.0100, L500.2500 ####[facility] [address] [place], [address] WBC (Bld) [#/Vol] 9.3 10*3/uL Normal 4.4-11.0 [facility] Comment on above: Performed By: #### L 100.0100, L500.2500 ####[facility] [address] [place], [address] Consultation - Infectious Dx on 01-28-2024 Consultation - Infectious Dx Normal [facility] Vancomycin, Random Levelon 1 VANCO, RANDOM 19.1 ug/mL High 0.0-15.0 [facility] Comment on above: Result Comment: VANC OMYCIN STANDARD DRUG THERAPY: CRITICAL VALUE IS > 15.0 mg/LVANCOMYCIN HIGH INTENSITY THERAPY: CRITICAL VALUE IS > 20.0 mg/LPLEASE CONTACT PHARMACY SERVICES (#1043) FOR INTERPRETATIONOF RESULTS. THIS RESULT DOES NOT REPRESENT A PEAK OR TROUGHLEVEL FOR THIS DRUG. Performed By: #### L 501.8850 ####[facility] [address] [place], [address] BC GPC IDon 01-27-2024 BC GPC ID Normal [facility] Comment on above: Performed By: #### M 200.1000, M100.636 ####[facility] [address] [place], [address] Basic Metabolic Profile (BMP )on 01-27-2024 BUN/CRE 9.0 RATIO Low 10- [facility] Comment on above: Performed By: #### L 100.0100, L500.2500 ####[facility] [address] [place], [address] CA,Total 8.7 mg/dL Normal 8.5-10.1 [facility] Comment on above: Performed By: #### L 100.0100, L500.2500 ####[facility] [address] [place], [address] Chloride [Moles/Vol] 104 mmol/L Normal 98-107 [facility] Comment on above: Performed By: #### L 100.0100, L500.2500 ####[facility] [address] [place], [address] CO2 [Moles/Vol] 26.0 mmol/L Normal 21.0-32.0 [facility] Comment on above: Performed By: #### L 100.0100, L500.2500 ####[facility] [address] [place], [address] Creatinine [Mass/Vol] 5.92 mg/dL High 0.70-1.30 [facility] Comment on above: Result Comment: The validity of the calculated GFR GFRAA in patients over70 years has not been determined. Clinical correlation isessential. Performed By: #### L 100.0100, L500.2500 ####[facility] [address] [place], [address] ECRCL 19.46 ml/min Normal [facility] Comment on above: Performed By: #### L 100.0100, L500.2500 ####[facility] [address] [place], [address] EST GFR - AA 14 mL/min Low >60 [facility] Comment on above: Result Comment: Afri can Bahamian GFR Calc Performed By: #### L 100.0100, L500.2500 ####[facility] [address] [place], [address] GAP 7 Normal 5-15 [facility] Comment on above: Performed By: #### L 100.0100, L500.2500 ####[facility] [address] [place], [address] GFR/1.73 sq M.predicted among non-blacks MDRD (S/P/Bld) [Vol rate/Area] 11 mL/min/{1.73_m2} Low >60 [facility] Comment on above: Result Comment: Non- GFR Calc Performed By: #### L 100.0100, L500.2500 ####[facility] [address] [place], [address] Glucose [Mass/Vol] 76 mg/dL Normal 74-106 [facility] Comment on above: Performed By: #### L 100.0100, L500.2500 ####[facility] [address] [place], [address] Potassium [Moles/Vol] 3.4 mmol/L Low 3.5-5.1 [facility] Comment on above: Performed By: #### L 100.0100, L500.2500 ####[facility] [address] [place], [address] Sodium [Moles/Vol] 137 mmol/L Normal 136-145 [facility] Comment on above: Performed By: #### L 100.0100, L500.2500 ####[facility] [address] [place], [address] Urea nitrogen [Mass/Vol] 53 mg/dL High 7-18 [facility] Comment on above: Performed By: #### L 100.0100, L500.2500 ####[facility] [address] [place], [address] CBC W/Diff, Automatedon 10-2 -2023 Absolute Lymph 1.03 X10 3/uL Normal 0.83-4.51 [facility] Comment on above: Performed By: #### L 100.0100, L500.2500 ####[facility] [address] [place], [address] Absolute Neut 9.9 X10 3/uL High 2.0-7.7 [facility] Comment on above: Performed By: #### L 100.0100, L500.2500 ####[facility] [address] [place], [address] Basophils/100 WBC (Bld) 0.6 % Normal 0-1 [facility] Comment on above: Performed By: #### L 100.0100, L500.2500 ####[facility] [address] [place], [address] Eosinophils/100 WBC (Bld) 2.8 % Normal 0-5 [facility] Comment on above: Performed By: #### L 100.0100, L500.2500 ####[facility] [address] [place], [address] Erythrocyte distribution width (RBC) [Ratio] 13.5 % Normal 11.6-14.6 [facility] Comment on above: Performed By: #### L 100.0100, L500.2500 ####[facility] [address] [place], [address] Hematocrit (Bld) [Volume fraction] 24.1 % Low 40-54 [facility] Comment on above: Performed By: #### L 100.0100, L500.2500 ####[facility] [address] [place], [address] Hemoglobin (Bld) [Mass/Vol] 7.7 g/dL Low 13.0-16. 5 [facility] Comment on above: Performed By: #### L 100.0100, L500.2500 ####[facility] [address] [place], [address] IG% 0.300 Normal 0.0-0.9 [facility] Comment on above: Result Comment: IG% - Immature Granulocytes (promyelocytes, myelocytes andmetamyelocytes) > 1% indicates that a LEFT SHIFT is Present. Performed By: #### L 100.0100, L500.2500 ####[facility] [address] [place], [address] Lymphocytes/100 WBC (Bld) 8.3 % Low 19-41 [facility] Comment on above: Performed By: #### L 100.0100, L500.2500 ####[facility] [address] [place], [address] MCH (RBC) [Entitic mass] 26.7 pg Low 27.0-32.0 [facility] Comment on above: Performed By: #### L 100.0100, L500.2500 ####[facility] [address] [place], [address] MCHC (RBC) [Mass/Vol] 32.0 g/dL Normal 32-36 [facility] Comment on above: Performed By: #### L 100.0100, L500.2500 ####[facility] [address] [place], [address] MCV (RBC) [Entitic vol] 83.7 fL Normal 80-94 [facility] Comment on above: Performed By: #### L 100.0100, L500.2500 ####[facility] [address] [place], [address] Monocytes/100 WBC (Bld) 8.1 % Normal 0-10 [facility] Comment on above: Performed By: #### L 100.0100, L500.2500 ####[facility] [address] [place], [address] Neutrophils/100 WBC (Bld) 79.9 % High 47-70 [facility] Comment on above: Performed By: #### L 100.0100, L500.2500 ####[facility] [address] [place], [address] Nucleated RBC (Bld) [#/Vol] 0 10*3/uL Normal 0-5 [facility] Comment on above: Performed By: #### L 100.0100, L500.2500 ####[facility] [address] [place], [address] Platelet mean volume (Bld) [Entitic vol] 9.7 fL Normal 6.2-12.0 [facility] Comment on above: Performed By: #### L 100.0100, L500.2500 ####[facility] [address] [place], [address] Platelets (Bld) [#/Vol] 255 10*3/uL Normal 150-450 [facility] Comment on above: Performed By: #### L 100.0100, L500.2500 ####[facility] [address] [place], [address] RBC (Bld) [#/Vol] 2.88 10*6/uL Low 4.6-6.2 [facility] Comment on above: Performed By: #### L 100.0100, L500.2500 ####[facility] [address] [place], [address] RDW SD 40.6 fl Normal 35.1-43.9 [facility] Comment on above: Performed By: #### L 100.0100, L500.2500 ####[facility] [address] [place], [address] WBC (Bld) [#/Vol] 12.3 10*3/uL High 4.4-11.0 [facility] Comment on above: Performed By: #### L 100.0100, L500.2500 ####[facility] [address] [place], [address] MR/PN.GIon 01-27-2024 MR/PN.GI Normal [facility] Urine Cultureon 01-27-2024 URC Culture exhibits no growth. Normal [facility] Comment on above: Performed By: #### M 100.2200 ####[facility] [address] [place], [address] Vancomycin, Random Levelon 1 VANCO, RANDOM 24.6 ug/mL High 0.0-15.0 [facility] Comment on above: Result Comment: VANC OMYCIN STANDARD DRUG THERAPY: CRITICAL VALUE IS > 15.0 mg/LVANCOMYCIN HIGH INTENSITY THERAPY: CRITICAL VALUE IS > 20.0 mg/LPLEASE CONTACT PHARMACY SERVICES (#9434) FOR INTERPRETATIONOF RESULTS. THIS RESULT DOES NOT REPRESENT A PEAK OR TROUGHLEVEL FOR THIS DRUG. Performed By: #### L 501.8850 ####[facility] [address] [place], [address] Vitamin D 1,25-Dihydroxyon 1 VIT D 1,25 DIHY 17.0 pg/mL Abnormal 24.8-81.5 [facility] Comment on above: Result Comment: Perf ormed at: [facility] - [facility] [address] [place], [place] [id number] Director: Devyn Zabala MD, Phone: [phone] Performed By: #### L 3300.0960, L500.2500, L501.9985, L505.5000 ####[facility] [address] [place], [address] 12 Lead EKGon 01-26-2024 12 Lead EKG Normal [facility] Basic Metabolic Profile (BMP )on 01-26-2024 BUN/CRE 8.6 RATIO Low 10-20 [facility] Comment on above: Performed By: #### L 500.2500, L100.0100 ####[facility] [address] [place], [address] CA,Total 8.2 mg/dL Low 8.5-10.1 [facility] Comment on above: Performed By: #### L 500.2500, L100.0100 ####[facility] [address] [place], [address] Chloride [Moles/Vol] 99 mmol/L Normal 98-107 [facility] Comment on above: Performed By: #### L 500.2500, L100.0100 ####[facility] [address] [place], [address] CO2 [Moles/Vol] 19.0 mmol/L Low 21.0-32.0 [facility] Comment on above: Performed By: #### L 500.2500, L100.0100 ####[facility] [address] [place], [address] Creatinine [Mass/Vol] 7.78 mg/dL Invalid Interpretation Code 0.70-1.30 [facility] Comment on above: Result Comment: Crit ical Result(s) Called at: 04:29:01 01/26/2024 by: NoahBurns. RICHMOND GALAN rn icu. Results read back by same.The validity of the calculated GFR GFRAA in patients over70 years has not been determined. Clinical correlation isessential. Performed By: #### L 500.2500, L100.0100 ####[facility] [address] [place], [address] ECRCL 14.81 ml/min Normal [facility] Comment on above: Performed By: #### L 500.2500, L100.0100 ####[facility] [address] [place], [address] EST GFR - AA 10 mL/min Low >60 [facility] Comment on above: Result Comment: Afri can Bahamian GFR Calc Performed By: #### L 500.2500, L100.0100 ####[facility] [address] [place], [address] GAP 13 Normal 5-15 [facility] Comment on above: Performed By: #### L 500.2500, L100.0100 ####[facility] [address] [place], [address] GFR/1.73 sq M.predicted among non-blacks MDRD (S/P/Bld) [Vol rate/Area] 8 mL/min/{1.73_m2} Low >60 [facility] Comment on above: Result Comment: Non- GFR Calc Performed By: #### L 500.2500, L100.0100 ####[facility] [address] [place], [address] Glucose [Mass/Vol] 319 mg/dL High 74-106 [facility] Comment on above: Result Comment: Gluc ose result greater than or equal to 200 mg/dLsuggests DIABETES MELLITUS per A.D.A. criteria. Performed By: #### L 500.2500, L100.0100 ####[facility] [address] [place], [address] Potassium [Moles/Vol] 4.6 mmol/L Normal 3.5-5.1 [facility] Comment on above: Performed By: #### L 500.2500, L100.0100 ####[facility] [address] [place], [address] Sodium [Moles/Vol] 130 mmol/L Low 136-145 [facility] Comment on above: Performed By: #### L 500.2500, L100.0100 ####[facility] [address] [place], [address] Urea nitrogen [Mass/Vol] 67 mg/dL High 7-18 [facility] Comment on above: Performed By: #### L 500.2500, L100.0100 ####[facility] [address] [place], [address] Bedside Glucoseon 01-26-2024 FINGERSTICK GLU 248 mg/dL High 74-106 [facility] Comment on above: Result Comment: EDUARDO GEMENT OF PATIENT CARE PER NURSING PROTOCOL Performed By: #### L 501.080 ####[facility] [address] [place], [address] FINGERSTICK GLU 389 mg/dL High 74-106 [facility] Comment on above: Result Comment: EDUARDO GEMENT OF PATIENT CARE PER NURSING PROTOCOL Performed By: #### L 501.080 ####[facility] [address] [place], [address] FINGERSTICK GLU 312 mg/dL High 74-106 [facility] Comment on above: Result Comment: EDUARDO GEMENT OF PATIENT CARE PER NURSING PROTOCOL Performed By: #### L 501.080 ####[facility] [address] [place], [address] CBC W/Diff, Automatedon 10-2 Absolute Lymph 0.68 X10 3/uL Low 0.83-4.51 [facility] Comment on above: Performed By: #### L 500.2500, L100.0100 ####[facility] [address] [place], [address] Absolute Neut 14.8 X10 3/uL High 2.0-7.7 [facility] Comment on above: Performed By: #### L 500.2500, L100.0100 ####[facility] [address] [place], [address] Basophils/100 WBC (Bld) 0.6 % Normal 0-1 [facility] Comment on above: Performed By: #### L 500.2500, L100.0100 ####[facility] [address] [place], [address] Eosinophils/100 WBC (Bld) 0.5 % Normal 0-5 [facility] Comment on above: Performed By: #### L 500.2500, L100.0100 ####[facility] [address] [place], [address] Erythrocyte distribution width (RBC) [Ratio] 13.2 % Normal 11.6-14.6 [facility] Comment on above: Performed By: #### L 500.2500, L100.0100 ####[facility] [address] [place], [address] Hematocrit (Bld) [Volume fraction] 23.1 % Low 40-54 [facility] Comment on above: Performed By: #### L 500.2500, L100.0100 ####[facility] [address] [place], [address] Hemoglobin (Bld) [Mass/Vol] 7.4 g/dL Low 13.0-16. 5 [facility] Comment on above: Performed By: #### L 500.2500, L100.0100 ####[facility] [address] [place], [address] IG% 0.800 Normal 0.0-0.9 [facility] Comment on above: Result Comment: IG% - Immature Granulocytes (promyelocytes, myelocytes andmetamyelocytes) > 1% indicates that a LEFT SHIFT is Present. Performed By: #### L 500.2500, L100.0100 ####[facility] [address] [place], [address] Lymphocytes/100 WBC (Bld) 4.1 % Low 19-41 [facility] Comment on above: Performed By: #### L 500.2500, L100.0100 ####[facility] [address] [place], [address] MCH (RBC) [Entitic mass] 27.0 pg Normal 27.0-32.0 [facility] Comment on above: Performed By: #### L 500.2500, L100.0100 ####[facility] [address] [place], [address] MCHC (RBC) [Mass/Vol] 32.0 g/dL Normal 32-36 [facility] Comment on above: Performed By: #### L 500.2500, L100.0100 ####[facility] [address] [place], [address] MCV (RBC) [Entitic vol] 84.3 fL Normal 80-94 [facility] Comment on above: Performed By: #### L 500.2500, L100.0100 ####[facility] [address] [place], [address] Monocytes/100 WBC (Bld) 5.8 % Normal 0-10 [facility] Comment on above: Performed By: #### L 500.2500, L100.0100 ####[facility] [address] [place], [address] Neutrophils/100 WBC (Bld) 88.2 % High 47-70 [facility] Comment on above: Performed By: #### L 500.2500, L100.0100 ####[facility] [address] [place], [address] Nucleated RBC (Bld) [#/Vol] 0 10*3/uL Normal 0-5 [facility] Comment on above: Performed By: #### L 500.2500, L100.0100 ####[facility] [address] [place], [address] Platelet mean volume (Bld) [Entitic vol] 9.7 fL Normal 6.2-12.0 [facility] Comment on above: Performed By: #### L 500.2500, L100.0100 ####[facility] [address] [place], [address] Platelets (Bld) [#/Vol] 223 10*3/uL Normal 150-450 [facility] Comment on above: Performed By: #### L 500.2500, L100.0100 ####[facility] [address] [place], [address] RBC (Bld) [#/Vol] 2.74 10*6/uL Low 4.6-6.2 [facility] Comment on above: Performed By: #### L 500.2500, L100.0100 ####[facility] [address] [place], [address] RDW SD 40.6 fl Normal 35.1-43.9 [facility] Comment on above: Performed By: #### L 500.2500, L100.0100 ####[facility] [address] [place], [address] WBC (Bld) [#/Vol] 16.7 10*3/uL High 4.4-11.0 [facility] Comment on above: Performed By: #### L 500.2500, L100.0100 ####[facility] [address] [place], [address] MR/CON.PCM.GIon 01-26-2024 MR/CON.PCM.GI Normal [facility] Vitamin B12on 01-26-2024 Cobalamin (Vitamin B12) [Mass/Vol] 794 pg/mL Normal 211-911 [facility] Comment on above: Performed By: #### L 503.0105, L506.0250, L503.6030, L503.6550 ####[facility] [address] [place], [address] 12 Lead EKGon 01-25-2024 12 Lead EKG Normal [facility] BRCon 01-25-2024 RC Normal [facility] Comment on above: Result Comment: [id number] BP RC TRANSFUSED 01/26/24 0849 Performed By: #### B RC, BTS ####[facility] [address] [place], [address] Basic Metabolic Profile (BMP )on 01-25-2024 BUN/CRE 8.8 RATIO Low 10-20 [facility] Comment on above: Performed By: #### L 500.2500, L100.0100 ####[facility] [address] [place], [address] CA,Total 8.7 mg/dL Normal 8.5-10.1 [facility] Comment on above: Performed By: #### L 500.2500, L100.0100 ####[facility] [address] [place], [address] Chloride [Moles/Vol] 105 mmol/L Normal 98-107 [facility] Comment on above: Performed By: #### L 500.2500, L100.0100 ####[facility] [address] [place], [address] CO2 [Moles/Vol] 23.0 mmol/L Normal 21.0-32.0 [facility] Comment on above: Performed By: #### L 500.2500, L100.0100 ####[facility] [address] [place], [address] Creatinine [Mass/Vol] 6.71 mg/dL High 0.70-1.30 [facility] Comment on above: Result Comment: Crimichael ical Result(s) Called at: 06:41:00 01/25/2024 by: RYNE to Ana Hernandez. Results read back by same.The validity of the calculated GFR GFRAA in patients over70 years has not been determined. Clinical correlation isessential. Performed By: #### L 500.2500, L100.0100 ####[facility] [address] [place], [address] ECRCL 17.17 ml/min Normal [facility] Comment on above: Performed By: #### L 500.2500, L100.0100 ####[facility] [address] [place], [address] EST GFR - AA 12 mL/min Low >60 [facility] Comment on above: Result Comment: Afri can Bahamian GFR Calc Performed By: #### L 500.2500, L100.0100 ####[facility] [address] [place], [address] GAP 7 Normal 5-15 [facility] Comment on above: Performed By: #### L 500.2500, L100.0100 ####[facility] [address] [place], [address] GFR/1.73 sq M.predicted among non-blacks MDRD (S/P/Bld) [Vol rate/Area] 10 mL/min/{1.73_m2} Low >60 [facility] Comment on above: Result Comment: Non- GFR Calc Performed By: #### L 500.2500, L100.0100 ####[facility] [address] [place], [address] Glucose [Mass/Vol] 83 mg/dL Normal 74-106 [facility] Comment on above: Performed By: #### L 500.2500, L100.0100 ####[facility] [address] [place], [address] Potassium [Moles/Vol] 4.5 mmol/L Normal 3.5-5.1 [facility] Comment on above: Result Comment: Mode rate Hemolysis, Result may be falsely increased. Performed By: #### L 500.2500, L100.0100 ####[facility] [address] [place], [address] Sodium [Moles/Vol] 134 mmol/L Low 136-145 [facility] Comment on above: Performed By: #### L 500.2500, L100.0100 ####[facility] [address] [place], [address] Urea nitrogen [Mass/Vol] 59 mg/dL High 7-18 [facility] Comment on above: Performed By: #### L 500.2500, L100.0100 ####[facility] [address] [place], [address] CBC W/Diff, Automatedon 10-2 -2023 Absolute Lymph 1.06 X10 3/uL Normal 0.83-4.51 [facility] Comment on above: Performed By: #### L 500.2500, L100.0100 ####[facility] [address] [place], [address] Absolute Neut 12.2 X10 3/uL High 2.0-7.7 [facility] Comment on above: Performed By: #### L 500.2500, L100.0100 ####[facility] [address] [place], [address] Basophils/100 WBC (Bld) 0.3 % Normal 0-1 [facility] Comment on above: Performed By: #### L 500.2500, L100.0100 ####[facility] [address] [place], [address] Eosinophils/100 WBC (Bld) 0.4 % Normal 0-5 [facility] Comment on above: Performed By: #### L 500.2500, L100.0100 ####[facility] [address] [place], [address] Erythrocyte distribution width (RBC) [Ratio] 13.3 % Normal 11.6-14.6 [facility] Comment on above: Performed By: #### L 500.2500, L100.0100 ####[facility] [address] [place], [address] Hematocrit (Bld) [Volume fraction] 22.2 % Low 40-54 [facility] Comment on above: Performed By: #### L 500.2500, L100.0100 ####[facility] [address] [place], [address] Hemoglobin (Bld) [Mass/Vol] 7.2 g/dL Low 13.0-16. 5 [facility] Comment on above: Performed By: #### L 500.2500, L100.0100 ####[facility] [address] [place], [address] IG% 0.500 Normal 0.0-0.9 [facility] Comment on above: Result Comment: IG% - Immature Granulocytes (promyelocytes, myelocytes andmetamyelocytes) > 1% indicates that a LEFT SHIFT is Present. Performed By: #### L 500.2500, L100.0100 ####[facility] [address] [place], [address] Lymphocytes/100 WBC (Bld) 7.1 % Low 19-41 [facility] Comment on above: Performed By: #### L 500.2500, L100.0100 ####[facility] [address] [place], [address] MCH (RBC) [Entitic mass] 27.2 pg Normal 27.0-32.0 [facility] Comment on above: Performed By: #### L 500.2500, L100.0100 ####[facility] [address] [place], [address] MCHC (RBC) [Mass/Vol] 32.4 g/dL Normal 32-36 [facility] Comment on above: Performed By: #### L 500.2500, L100.0100 ####[facility] [address] [place], [address] MCV (RBC) [Entitic vol] 83.8 fL Normal 80-94 [facility] Comment on above: Performed By: #### L 500.2500, L100.0100 ####[facility] [address] [place], [address] Monocytes/100 WBC (Bld) 9.7 % Normal 0-10 [facility] Comment on above: Performed By: #### L 500.2500, L100.0100 ####[facility] [address] [place], [address] Neutrophils/100 WBC (Bld) 82.0 % High 47-70 [facility] Comment on above: Performed By: #### L 500.2500, L100.0100 ####[facility] [address] [place], [address] Nucleated RBC (Bld) [#/Vol] 0 10*3/uL Normal 0-5 [facility] Comment on above: Performed By: #### L 500.2500, L100.0100 ####[facility] [address] [place], [address] Platelet mean volume (Bld) [Entitic vol] 9.2 fL Normal 6.2-12.0 [facility] Comment on above: Performed By: #### L 500.2500, L100.0100 ####[facility] [address] [place], [address] Platelets (Bld) [#/Vol] 262 10*3/uL Normal 150-450 [facility] Comment on above: Performed By: #### L 500.2500, L100.0100 ####[facility] [address] [place], [address] RBC (Bld) [#/Vol] 2.65 10*6/uL Low 4.6-6.2 [facility] Comment on above: Performed By: #### L 500.2500, L100.0100 ####[facility] [address] [place], [address] RDW SD 40.8 fl Normal 35.1-43.9 [facility] Comment on above: Performed By: #### L 500.2500, L100.0100 ####[facility] [address] [place], [address] WBC (Bld) [#/Vol] 14.8 10*3/uL High 4.4-11.0 [facility] Comment on above: Performed By: #### L 500.2500, L100.0100 ####[facility] [address] [place], [address] Chest 1 View (Portable)on Chest 1 View (Portable) Normal [facility] Ferritinon 01-25-2024 Ferritin [Mass/Vol] 63 ng/mL Normal 26-388 [facility] Comment on above: Order Comment: Has P atient had X-rays with Contrast this admission? YN Performed By: #### L 503.0105, L506.0250, L503.6030, L503.6550 ####[facility] [address] [place], [address] Folates, (Folic Acid)on 12-30 FOLATES 6.90 ng/mL Normal 3.1-55.4 [facility] Comment on above: Order Comment: Has P yosef had X-rays with Contrast this admission? YN Result Comment: Mode rate Hemolysis, Result may be falsely increased. Performed By: #### L 503.0105, L506.0250, L503.6030, L503.6550 ####[facility] [address] [facility] [address] Iron+Iron Binding Capacityon 01-25-2024 Iron [Mass/Vol] 13 ug/dL Low 65-175 [facility] Comment on above: Order Comment: Has P yosef had X-rays with Contrast this admission? YN Result Comment: Mode rate Hemolysis, Result may be falsely increased. Performed By: #### L 503.0105, L506.0250, L503.6030, L503.6550 ####[facility] [address] [facility] [address] IRON SATURATION 5.6 Low 15.0-55.0 [facility] Comment on above: Order Comment: Has Ivan navas had X-rays with Contrast this admission? YN Performed By: #### L 503.0105, L506.0250, L503.6030, L503.6550 ####[facility] [address] [place], [address] TIBC 232 ug/dL Low 250-450 [facility] Comment on above: Order Comment: Has Ivan navas had X-rays with Contrast this admission? YN Result Comment: Mode rate Hemolysis, Result may be falsely increased. Performed By: #### L 503.0105, L506.0250, L503.6030, L503.6550 ####[facility] [address] [facility] [address] M100.019on 01-25-2024 M100.019 Negative Normal [facility] Comment on above: Performed By: #### M 100.019 ####[facility] [address] [place], [address] RESPIRATORY PANEL MOLECULARo n 01-25-2024 RP PANEL Normal [facility] Comment on above: Performed By: #### M 100.638 ####[facility] [address] [place], [address] Type AND Screenon 01-25-2024 Ab SCREEN GEL Negative Normal [facility] Comment on above: Order Comment: CMV N EG? NNumber of units to transfuse: 1Reason for Ordering Blood: ChronicIs there symptomatic anemia? Alireza the blood/blood products to be transfused? YIs the patient having/had surgery? NWhen EhsanNY Performed By: #### B RC, BTS ####[facility] [address] [place], [address] Urinalysis, Completeon 01-24 BACTERIA 1+ /hpf Normal None Seen [facility] Comment on above: Order Comment: Urine , Random Performed By: #### L 400.0001 ####[facility] [address] [place], [address] BILIRUBIN URINE Negative Normal Negative [facility] Comment on above: Order Comment: Urine , Random Performed By: #### L 400.0001 ####[facility] [address] [place], [address] Clarity (U) Clear Normal Clear [facility] Comment on above: Order Comment: Urine , Random Performed By: #### L 400.0001 ####[facility] [address] [place], [address] Color (U) Straw Normal Yellow [facility] Comment on above: Order Comment: Urine , Random Performed By: #### L 400.0001 ####[facility] [address] [place], [address] GLUCOSE, UR Normal Normal Normal [facility] Comment on above: Order Comment: Urine , Random Performed By: #### L 400.0001 ####[facility] [address] [place], [address] KETONE UR Negative Normal Negative [facility] Comment on above: Order Comment: Urine , Random Performed By: #### L 400.0001 ####[facility] [address] [place], [address] LEUK ESTERASE Negative Normal Negative [facility] Comment on above: Order Comment: Urine , Random Performed By: #### L 400.0001 ####[facility] [address] [place], [address] Nitrite Ql (U) Negative Normal Negative [facility] Comment on above: Order Comment: Urine , Random Performed By: #### L 400.0001 ####[facility] [address] [place], [address] OCCULT BLOOD-UR 10 /ul Abnormal Negative [facility] Comment on above: Order Comment: Urine , Random Performed By: #### L 400.0001 ####[facility] [address] [place], [address] pH UR 6.0 Normal 5.0 - 8.0 [facility] Comment on above: Order Comment: Urine , Random Performed By: #### L 400.0001 ####[facility] [address] [place], [address] PROT DIPSTX 100 mg/dl Abnormal Negative [facility] Comment on above: Order Comment: Urine , Random Performed By: #### L 400.0001 ####[facility] [address] [place], [address] SP.GR. DIPSTX 1.020 Normal 1.002-1.030 [facility] Comment on above: Order Comment: Urine , Random Performed By: #### L 400.0001 ####[facility] [address] [place], [address] UROBILI Normal Normal Normal [facility] Comment on above: Order Comment: Urine , Random Performed By: #### L 400.0001 ####[facility] [address] [place], [address] EPI,SQUAMOUS 0 SEEN Normal 0-5 [facility] Comment on above: Order Comment: Urine , Random Performed By: #### L 400.0001 ####[facility] [address] [place], [address] Mucus Ql (Urine sed) [address] [facility] Comment on above: Order Comment: Urine , Random Performed By: #### L 400.0001 ####[facility] [address] [place], [address] RBC 0 SEEN Normal 0-5 [facility] Comment on above: Order Comment: Urine , Random Performed By: #### L 400.0001 ####[facility] [address] [place], [address] WBC 0 SEEN Normal 0-5 [facility] Comment on above: Order Comment: Urine , Random Performed By: #### L 400.0001 ####[facility] [address] [place], [address] 12 Lead EKGon 01-24-2024 12 Lead EKG Normal [facility] BNP,B-Type NATRIURETIC PEPTI Tony 01-24-2024 Natriuretic peptide B (Bld) [Mass/Vol] 1030.6 pg/mL High 0-100 [facility] Comment on above: Performed By: #### L 503.6620 ####[facility] [address] [place], [address] Basic Metabolic Profile (BMP )on 01-24-2024 BUN Normal 7-18 [facility] Comment on above: Order Comment: Call MD with results STAT Result Comment: Dano parada via OM: Pt no longer on insulin drip Performed By: #### L 500.2500 ####[facility] [address] [place], [address] BUN/CRE Normal 10-20 [facility] Comment on above: Order Comment: Call MD with results STAT Result Comment: Canc elled via OM: Pt no longer on insulin drip Performed By: #### L 500.2500 ####[facility] [address] [place], [address] CA,Total Normal 8.5-10.1 [facility] Comment on above: Order Comment: Call MD with results STAT Result Comment: Canc elled via OM: Pt no longer on insulin drip Performed By: #### L 500.2500 ####[facility] [address] [place], [address] CL Normal 98-107 [facility] Comment on above: Order Comment: Call MD with results STAT Result Comment: Canc elled via OM: Pt no longer on insulin drip Performed By: #### L 500.2500 ####[facility] [address] [place], [address] CO2 Normal 21.0-32.0 [facility] Comment on above: Order Comment: Call MD with results STAT Result Comment: Canc elled via OM: Pt no longer on insulin drip Performed By: #### L 500.2500 ####[facility] [address] [place], [address] CREAT,SERUM Normal 0.70-1.30 [facility] Comment on above: Order Comment: Call MD with results STAT Result Comment: Canc elled via OM: Pt no longer on insulin drip Performed By: #### L 500.2500 ####[facility] [address] [place], [address] EST GFR Normal >60 [facility] Comment on above: Order Comment: Call MD with results STAT Result Comment: Canc elled via OM: Pt no longer on insulin drip Performed By: #### L 500.2500 ####[facility] [address] [place], [address] EST GFR - AA Normal >60 [facility] Comment on above: Order Comment: Call MD with results STAT Result Comment: Canc elled via OM: Pt no longer on insulin drip Performed By: #### L 500.2500 ####[facility] [address] [place], [address] GAP Normal 5-15 [facility] Comment on above: Order Comment: Call MD with results STAT Result Comment: Canc elled via OM: Pt no longer on insulin drip Performed By: #### L 500.2500 ####[facility] [address] [place], [address] GLU Normal 74-106 [facility] Comment on above: Order Comment: Call MD with results STAT Result Comment: Canc elled via OM: Pt no longer on insulin drip Performed By: #### L 500.2500 ####[facility] [address] [place], [address] Potassium Normal 3.5-5.1 [facility] Comment on above: Order Comment: Call MD with results STAT Result Comment: Canc elled via OM: Pt no longer on insulin drip Performed By: #### L 500.2500 ####[facility] [address] [place], [address] Basic Metabolic Profile (BMP) Normal 136-145 [facility] Comment on above: Order Comment: Call MD with results STAT Result Comment: Canc elled via OM: Pt no longer on insulin drip Performed By: #### L 500.2500 ####[facility] [address] [place], [address] Bedside Glucoseon 01-24-2024 FINGERSTICK GLU 115 mg/dL High 74-106 [facility] Comment on above: Result Comment: EDUARDO JACOBO OF PATIENT CARE PER NURSING PROTOCOL Performed By: #### L 501.080 ####[facility] [address] [place], [address] CBC-Complete Blood Cnt No Hilda rowe 01-24-2024 Erythrocyte distribution width (RBC) [Ratio] 13.4 % Normal 11.6-14.6 [facility] Comment on above: Performed By: #### L 100.0500 ####[facility] [address] [place], [address] Hematocrit (Bld) [Volume fraction] 22.2 % Low 40-54 [facility] Comment on above: Performed By: #### L 100.0500 ####[facility] [address] [place], [address] Hemoglobin (Bld) [Mass/Vol] 7.3 g/dL Low 13.0-16. 5 [facility] Comment on above: Performed By: #### L 100.0500 ####[facility] [address] [place], [address] MCH (RBC) [Entitic mass] 27.0 pg Normal 27.0-32.0 [facility] Comment on above: Performed By: #### L 100.0500 ####[facility] [address] [place], [address] MCHC (RBC) [Mass/Vol] 32.9 g/dL Normal 32-36 [facility] Comment on above: Performed By: #### L 100.0500 ####[facility] [address] [place], [address] MCV (RBC) [Entitic vol] 82.2 fL Normal 80-94 [facility] Comment on above: Performed By: #### L 100.0500 ####[facility] [address] [place], [address] Platelet mean volume (Bld) [Entitic vol] 9.5 fL Normal 6.2-12.0 [facility] Comment on above: Performed By: #### L 100.0500 ####[facility] [address] [facility] [place], [address] Platelets (Bld) [#/Vol] 283 10*3/uL Normal 150-450 [facility] Comment on above: Performed By: #### L 100.0500 ####[facility] [address] [place], [address] RBC (Bld) [#/Vol] 2.70 10*6/uL Low 4.6-6.2 [facility] Comment on above: Performed By: #### L 100.0500 ####[facility] [address] [place], [address] RDW SD 40.1 fl Normal 35.1-43.9 [facility] Comment on above: Performed By: #### L 100.0500 ####[facility] [address] [place], [address] WBC (Bld) [#/Vol] 12.9 10*3/uL High 4.4-11.0 [facility] Comment on above: Performed By: #### L 100.0500 ####[facility] [address] [place], [address] Comprehensive Metabolic Prof [facility] 01-24-2024 Albumin [Mass/Vol] 3.0 g/dL Low 3.2-5.0 [facility] Comment on above: Performed By: #### L 500.4050, L501.2300 ####[facility] [address] [place], [address] Albumin/Globulin [Mass ratio] 1.0 {ratio} Normal 0.9-2.4 [facility] Comment on above: Performed By: #### L 500.4050, L501.2300 ####[facility] [address] [place], [address] ALK P 53 U/L Normal 45-117 [facility] Comment on above: Performed By: #### L 500.4050, L501.2300 ####[facility] [address] [place], [address] ALT [Catalytic activity/Vol] 26 U/L Normal 16-61 [facility] Comment on above: Performed By: #### L 500.4050, L501.2300 ####[facility] [address] [place], [address] AST [Catalytic activity/Vol] 49 U/L High 15-37 [facility] Comment on above: Performed By: #### L 500.4050, L501.2300 ####[facility] [address] [place], [address] Bilirubin [Mass/Vol] 0.30 mg/dL Normal 0.20-1.00 [facility] Comment on above: Result Comment: For patients on eltrombopag therapy, use of Dimension Mobile TBIL is not recommended. Performed By: #### L 500.4050, L501.2300 ####[facility] [address] [place], [address] BUN/CRE 11.1 RATIO Normal 10-20 [facility] Comment on above: Performed By: #### L 500.4050, L501.2300 ####[facility] [address] [place], [address] CA,Total 8.4 mg/dL Low 8.5-10.1 [facility] Comment on above: Performed By: #### L 500.4050, L501.2300 ####[facility] [address] [place], [address] Chloride [Moles/Vol] 109 mmol/L High 98-107 [facility] Comment on above: Performed By: #### L 500.4050, L501.2300 ####[facility] [address] [place], [address] CO2 [Moles/Vol] 22.0 mmol/L Normal 21.0-32.0 [facility] Comment on above: Performed By: #### L 500.4050, L501.2300 ####[facility] [address] [place], [address] Creatinine [Mass/Vol] 4.40 mg/dL High 0.70-1.30 [facility] Comment on above: Result Comment: The validity of the calculated GFR GFRAA in patients over70 years has not been determined. Clinical correlation isessential. Performed By: #### L 500.4050, L501.2300 ####[facility] [address] [place], [address] ECRCL 25.97 ml/min Normal [facility] Comment on above: Performed By: #### L 500.4050, L501.2300 ####[facility] [address] [place], [address] EST GFR - AA 19 mL/min Low >60 [facility] Comment on above: Result Comment: Afri can Bahamian GFR Calc Performed By: #### L 500.4050, L501.2300 ####[facility] [address] [place], [address] GAP 9 Normal 5-15 [facility] Comment on above: Performed By: #### L 500.4050, L501.2300 ####[facility] [address] [place], [address] GFR/1.73 sq M.predicted among non-blacks MDRD (S/P/Bld) [Vol rate/Area] 16 mL/min/{1.73_m2} Low >60 [facility] Comment on above: Result Comment: Non- GFR Calc Performed By: #### L 500.4050, L501.2300 ####[facility] [address] [place], [address] Globulin (S) [Mass/Vol] 2.9 g/dL Normal 2.2-4.2 [facility] Comment on above: Performed By: #### L 500.4050, L501.2300 ####[facility] [address] [place], [address] Glucose [Mass/Vol] 100 mg/dL Normal 74-106 [facility] Comment on above: Result Comment: Fast ing Glucose result from 100 to 125 mg/dLsuggests IMPAIRED HOMEOSTASIS per A.D.A. criteria. Performed By: #### L 500.4050, L501.2300 ####[facility] [address] [place], [address] Potassium [Moles/Vol] 3.9 mmol/L Normal 3.5-5.1 [facility] Comment on above: Performed By: #### L 500.4050, L501.2300 ####[facility] [address] [place], [address] Sodium [Moles/Vol] 139 mmol/L Normal 136-145 [facility] Comment on above: Performed By: #### L 500.4050, L501.2300 ####[facility] [address] [place], [address] T PROT 5.9 g/dL Low 6.4-8.2 [facility] Comment on above: Performed By: #### L 500.4050, L501.2300 ####[facility] [address] [place], [address] Urea nitrogen [Mass/Vol] 49 mg/dL High 7-18 [facility] Comment on above: Performed By: #### L 500.4050, L501.2300 ####[facility] [address] [place], [address] Consultation - Intensiviston 01-24-2024 Consultation - Yarn Sorter Normal [facility] Phosphoruson 01-24-2024 Phosphate [Mass/Vol] 4.9 mg/dL Normal 2.5-4.9 [facility] Comment on above: Performed By: #### L 500.4050, L501.2300 ####[facility] [address] [place], [address] 12 Lead EKGon 01-23-2024 12 Lead EKG Normal [facility] ACT Activated Clotting Timeo n 01-23-2024 ACTk CLOT TIME 250 sec High 74-137 [facility] Comment on above: Performed By: #### L 9100.0100 ####[facility] [address] [place], [address] ACTk CLOT TIME 177 sec High 74-137 [facility] Comment on above: Performed By: #### L 9100.0100 ####[facility] [address] [place], [address] Acetone Serumon 01-23-2024 ACETONE SERUM Negative Normal NEG [facility] Comment on above: Performed By: #### L 501.6900, L100.0100 ####[facility] [address] [place], [address] BNP,B-Type NATRIURETIC PEPTI Tony 01-23-2024 Natriuretic peptide B (Bld) [Mass/Vol] 1063.7 pg/mL High 0-100 [facility] Comment on above: Performed By: #### L 503.6620 ####[facility] [address] [place], [address] Basic Metabolic Profile (BMP )on 01-23-2024 BUN Normal 7-18 [facility] Comment on above: Order Comment: Call with results STAT Result Comment: @SUKI ADAMS SAID THAT THIS PATIENT IS ON AN INSULIN@DRIP. FORGOT TO CANCEL THESE TESTS. Performed By: #### L 500.2500 ####[facility] [address] [place], [address] BUN/CRE Normal 10-20 [facility] Comment on above: Order Comment: Call MD with results STAT Result Comment: @SUKI IE SAID THAT THIS PATIENT IS ON AN INSULIN@DRIP. FORGOT TO CANCEL THESE TESTS. Performed By: #### L 500.2500 ####[facility] [address] [place], [address] CA,Total Normal 8.5-10.1 [facility] Comment on above: Order Comment: Call MD with results STAT Result Comment: @SUKI IE SAID THAT THIS PATIENT IS ON AN INSULIN@DRIP. FORGOT TO CANCEL THESE TESTS. Performed By: #### L 500.2500 ####[facility] [address] [place], [address] CL Normal 98-107 [facility] Comment on above: Order Comment: Call MD with results STAT Result Comment: @SUKI IE SAID THAT THIS PATIENT IS ON AN INSULIN@DRIP. FORGOT TO CANCEL THESE TESTS. Performed By: #### L 500.2500 ####[facility] [address] [place], [address] CO2 Normal 21.0-32.0 [facility] Comment on above: Order Comment: Call with results STAT Result Comment: @SUKI IE SAID THAT THIS PATIENT IS ON AN INSULIN@DRIP. FORGOT TO CANCEL THESE TESTS. Performed By: #### L 500.2500 ####[facility] [address] [place], [address] CREAT,SERUM Normal 0.70-1.30 [facility] Comment on above: Order Comment: Call with results STAT Result Comment: @SUKI IE SAID THAT THIS PATIENT IS ON AN INSULIN@DRIP. FORGOT TO CANCEL THESE TESTS. Performed By: #### L 500.2500 ####[facility] [address] [place], [address] EST GFR Normal >60 [facility] Comment on above: Order Comment: Call with results STAT Result Comment: @SUKI IE SAID THAT THIS PATIENT IS ON AN INSULIN@DRIP. FORGOT TO CANCEL THESE TESTS. Performed By: #### L 500.2500 ####[facility] [address] [place], [address] EST GFR - AA Normal >60 [facility] Comment on above: Order Comment: Call MD with results STAT Result Comment: @SUKI IE SAID THAT THIS PATIENT IS ON AN INSULIN@DRIP. FORGOT TO CANCEL THESE TESTS. Performed By: #### L 500.2500 ####[facility] [address] [place], [address] GAP Normal 5-15 [facility] Comment on above: Order Comment: Call MD with results STAT Result Comment: @SUKI IE SAID THAT THIS PATIENT IS ON AN INSULIN@DRIP. FORGOT TO CANCEL THESE TESTS. Performed By: #### L 500.2500 ####[facility] [address] [place], [address] GLU Normal 74-106 [facility] Comment on above: Order Comment: Call MD with results STAT Result Comment: @SUKI IE SAID THAT THIS PATIENT IS ON AN INSULIN@DRIP. FORGOT TO CANCEL THESE TESTS. Performed By: #### L 500.2500 ####[facility] [address] [place], [address] Potassium Normal 3.5-5.1 [facility] Comment on above: Order Comment: Call MD with results STAT Result Comment: @SUKI IE SAID THAT THIS PATIENT IS ON AN INSULIN@DRIP. FORGOT TO CANCEL THESE TESTS. Performed By: #### L 500.2500 ####[facility] [address] [place], [address] Basic Metabolic Profile (BMP) Normal 136-145 [facility] Comment on above: Order Comment: Call MD with results STAT Result Comment: @SUKI IE SAID THAT THIS PATIENT IS ON AN INSULIN@DRIP. FORGOT TO CANCEL THESE TESTS. Performed By: #### L 500.2500 ####[facility] [address] [place], [address] BUN Normal 7-18 [facility] Comment on above: Order Comment: Call MD with results STAT Result Comment: @NOT DRAWN ON TIME Performed By: #### L 500.2500 ####[facility] [address] [place], [address] BUN/CRE Normal 10-20 [facility] Comment on above: Order Comment: Call MD with results STAT Result Comment: @NOT DRAWN ON TIME Performed By: #### L 500.2500 ####[facility] [address] [place], [address] CA,Total Normal 8.5-10.1 [facility] Comment on above: Order Comment: Call MD with results STAT Result Comment: @NOT DRAWN ON TIME Performed By: #### L 500.2500 ####[facility] [address] [place], [address] CL Normal 98-107 [facility] Comment on above: Order Comment: Call MD with results STAT Result Comment: @NOT DRAWN ON TIME Performed By: #### L 500.2500 ####[facility] [address] [place], [address] CO2 Normal 21.0-32.0 [facility] Comment on above: Order Comment: Call MD with results STAT Result Comment: @NOT DRAWN ON TIME Performed By: #### L 500.2500 ####[facility] [address] [place], [address] CREAT,SERUM Normal 0.70-1.30 [facility] Comment on above: Order Comment: Call MD with results STAT Result Comment: @NOT DRAWN ON TIME Performed By: #### L 500.2500 ####[facility] [address] [place], [address] EST GFR Normal >60 [facility] Comment on above: Order Comment: Call MD with results STAT Result Comment: @NOT DRAWN ON TIME Performed By: #### L 500.2500 ####[facility] [address] [place], [address] EST GFR - AA Normal >60 [facility] Comment on above: Order Comment: Call MD with results STAT Result Comment: @NOT DRAWN ON TIME Performed By: #### L 500.2500 ####[facility] [address] [place], [address] GAP Normal 5-15 [facility] Comment on above: Order Comment: Call MD with results STAT Result Comment: @NOT DRAWN ON TIME Performed By: #### L 500.2500 ####[facility] [address] [place], [address] GLU Normal 74-106 [facility] Comment on above: Order Comment: Call MD with results STAT Result Comment: @NOT DRAWN ON TIME Performed By: #### L 500.2500 ####[facility] [address] [place], [address] Potassium Normal 3.5-5.1 [facility] Comment on above: Order Comment: Call MD with results STAT Result Comment: @NOT DRAWN ON TIME Performed By: #### L 500.2500 ####[facility] [address] [place], [address] Basic Metabolic Profile (BMP) Normal 136-145 [facility] Comment on above: Order Comment: Call MD with results STAT Result Comment: @NOT DRAWN ON TIME Performed By: #### L 500.2500 ####[facility] [address] [place], [address] BUN Normal 7-18 [facility] Comment on above: Order Comment: Call MD with results STAT Result Comment: @NOT DRAWN ON TIME Performed By: #### L 500.2500 ####[facility] [address] [place], [address] BUN/CRE Normal 10-20 [facility] Comment on above: Order Comment: Call MD with results STAT Result Comment: @NOT DRAWN ON TIME Performed By: #### L 500.2500 ####[facility] [address] [place], [address] CA,Total Normal 8.5-10.1 [facility] Comment on above: Order Comment: Call MD with results STAT Result Comment: @NOT DRAWN ON TIME Performed By: #### L 500.2500 ####[facility] [address] [place], [address] CL Normal 98-107 [facility] Comment on above: Order Comment: Call MD with results STAT Result Comment: @NOT DRAWN ON TIME Performed By: #### L 500.2500 ####[facility] [address] [place], [address] CO2 Normal 21.0-32.0 [facility] Comment on above: Order Comment: Call MD with results STAT Result Comment: @NOT DRAWN ON TIME Performed By: #### L 500.2500 ####[facility] [address] [place], [address] CREAT,SERUM Normal 0.70-1.30 [facility] Comment on above: Order Comment: Call MD with results STAT Result Comment: @NOT DRAWN ON TIME Performed By: #### L 500.2500 ####[facility] [address] [place], [address] EST GFR Normal >60 [facility] Comment on above: Order Comment: Call MD with results STAT Result Comment: @NOT DRAWN ON TIME Performed By: #### L 500.2500 ####[facility] [address] [place], [address] EST GFR - AA Normal >60 [facility] Comment on above: Order Comment: Call MD with results STAT Result Comment: @NOT DRAWN ON TIME Performed By: #### L 500.2500 ####[facility] [address] [place], [address] GAP Normal 5-15 [facility] Comment on above: Order Comment: Call MD with results STAT Result Comment: @NOT DRAWN ON TIME Performed By: #### L 500.2500 ####[facility] [address] [place], [address] GLU Normal 74-106 [facility] Comment on above: Order Comment: Call MD with results STAT Result Comment: @NOT DRAWN ON TIME Performed By: #### L 500.2500 ####[facility] [address] [place], [address] Potassium Normal 3.5-5.1 [facility] Comment on above: Order Comment: Call MD with results STAT Result Comment: @NOT DRAWN ON TIME Performed By: #### L 500.2500 ####[facility] [address] [place], [address] Basic Metabolic Profile (BMP) Normal 136-145 [facility] Comment on above: Order Comment: Call MD with results STAT Result Comment: @NOT DRAWN ON TIME Performed By: #### L 500.2500 ####[facility] [address] [place], [address] BUN/CRE 13.9 RATIO Normal 10-20 [facility] Comment on above: Order Comment: Call MD with results STAT Performed By: #### L 500.2500 ####[facility] [address] [place], [address] CA,Total 9.1 mg/dL Normal 8.5-10.1 [facility] Comment on above: Order Comment: Call MD with results STAT Performed By: #### L 500.2500 ####[facility] [address] [place], [address] Chloride [Moles/Vol] 107 mmol/L Normal 98-107 [facility] Comment on above: Order Comment: Call MD with results STAT Performed By: #### L 500.2500 ####[facility] [address] [place], [address] CO2 [Moles/Vol] 19.0 mmol/L Low 21.0-32.0 [facility] Comment on above: Order Comment: Call MD with results STAT Performed By: #### L 500.2500 ####[facility] [address] [facility] [address] Creatinine [Mass/Vol] 5.70 mg/dL High 0.70-1.30 [facility] Comment on above: Order Comment: Call MD with results STAT Result Comment: The validity of the calculated GFR GFRAA in patients over70 years has not been determined. Clinical correlation isessential. Performed By: #### L 500.2500 ####[facility] [address] [place] [address] ECRCL 20.12 ml/min Normal [facility] Comment on above: Order Comment: Call MD with results STAT Performed By: #### L 500.2500 ####[facility] [address] [place] [address] EST GFR - AA 14 mL/min Low >60 [facility] Comment on above: Order Comment: Call MD with results STAT Result Comment: Afri can Bahamian GFR Calc Performed By: #### L 500.2500 ####[facility] [address] [place] [address] GAP 13 Normal 5-15 [facility] Comment on above: Order Comment: Call MD with results STAT Performed By: #### L 500.2500 ####[facility] [address] [place] [id number] GFR/1.73 sq M.predicted among non-blacks MDRD (S/P/Bld) [Vol rate/Area] 12 mL/min/{1.73_m2} Low >60 [facility] Comment on above: Order Comment: Call MD with results STAT Result Comment: Non- GFR Calc Performed By: #### L 500.2500 ####[facility] [address] [place], [address] Glucose [Mass/Vol] 117 mg/dL High 74-106 [facility] Comment on above: Order Comment: Call MD with results STAT Result Comment: Fast ing Glucose result from 100 to 125 mg/dLsuggests IMPAIRED HOMEOSTASIS per A.D.A. criteria. Performed By: #### L 500.2500 ####[facility] [address] [place], [address] Potassium [Moles/Vol] 3.8 mmol/L Normal 3.5-5.1 [facility] Comment on above: Order Comment: Call MD with results STAT Performed By: #### L 500.2500 ####[facility] [address] [place], [address] Sodium [Moles/Vol] 139 mmol/L Normal 136-145 [facility] Comment on above: Order Comment: Call MD with results STAT Performed By: #### L 500.2500 ####[facility] [address] [place], [address] Urea nitrogen [Mass/Vol] 79 mg/dL High 7-18 [facility] Comment on above: Order Comment: Call MD with results STAT Performed By: #### L 500.2500 ####[facility] [address] [place], [address] BUN/CRE 14.0 RATIO Normal 10-20 [facility] Comment on above: Order Comment: Call MD with results STAT Performed By: #### L 500.2500 ####[facility] [address] [place], [address] CA,Total 8.8 mg/dL Normal 8.5-10.1 [facility] Comment on above: Order Comment: Call MD with results STAT Performed By: #### L 500.2500 ####[facility] [address] [place], [address] Chloride [Moles/Vol] 107 mmol/L Normal 98-107 [facility] Comment on above: Order Comment: Call MD with results STAT Performed By: #### L 500.2500 ####[facility] [address] [place] [phone] CO2 [Moles/Vol] 19.0 mmol/L Low 21.0-32.0 [facility] Comment on above: Order Comment: Call MD with results STAT Performed By: #### L 500.2500 ####[facility] [address] [place] [phone] Creatinine [Mass/Vol] 5.72 mg/dL High 0.70-1.30 [facility] Comment on above: Order Comment: Call MD with results STAT Result Comment: The validity of the calculated GFR GFRAA in patients over70 years has not been determined. Clinical correlation isessential. Performed By: #### L 500.2500 ####[facility] [address] [place] [address] ECRCL 20.05 ml/min Normal [facility] Comment on above: Order Comment: Call MD with results STAT Performed By: #### L 500.2500 ####[facility] [address] [place] [address] EST GFR - AA 14 mL/min Low >60 [facility] Comment on above: Order Comment: Call MD with results STAT Result Comment: Afri can Bahamian GFR Calc Performed By: #### L 500.2500 ####[facility] [address] [place] [address] GAP 11 Normal 5-15 [facility] Comment on above: Order Comment: Call MD with results STAT Performed By: #### L 500.2500 ####[facility] [address] [place] [id number] GFR/1.73 sq M.predicted among non-blacks MDRD (S/P/Bld) [Vol rate/Area] 12 mL/min/{1.73_m2} Low >60 [facility] Comment on above: Order Comment: Call MD with results STAT Result Comment: Non- GFR Calc Performed By: #### L 500.2500 ####[facility] [address] [place], [address] Glucose [Mass/Vol] 114 mg/dL High 74-106 [facility] Comment on above: Order Comment: Call MD with results STAT Result Comment: Fast ing Glucose result from 100 to 125 mg/dLsuggests IMPAIRED HOMEOSTASIS per A.D.A. criteria. Performed By: #### L 500.2500 ####[facility] [address] [place], [address] Potassium [Moles/Vol] 3.9 mmol/L Normal 3.5-5.1 [facility] Comment on above: Order Comment: Call MD with results STAT Performed By: #### L 500.2500 ####[facility] [address] [place], [address] Sodium [Moles/Vol] 137 mmol/L Normal 136-145 [facility] Comment on above: Order Comment: Call MD with results STAT Performed By: #### L 500.2500 ####[facility] [address] [place], [address] Urea nitrogen [Mass/Vol] 80 mg/dL High 7-18 [facility] Comment on above: Order Comment: Call MD with results STAT Performed By: #### L 500.2500 ####[facility] [address] [place], [address] BUN/CRE 13.4 RATIO Normal 10-20 [facility] Comment on above: Performed By: #### L 501.9520, L500.2500, L500.4100, L501.5200 ####[facility] [address] [place], [address] CA,Total 9.2 mg/dL Normal 8.5-10.1 [facility] Comment on above: Performed By: #### L 501.9520, L500.2500, L500.4100, L501.5200 ####[facility] [address] [place], [address] Chloride [Moles/Vol] 104 mmol/L Normal 98-107 [facility] Comment on above: Performed By: #### L 501.9520, L500.2500, L500.4100, L501.5200 ####[facility] [address] [place], [address] CO2 [Moles/Vol] 18.0 mmol/L Low 21.0-32.0 [facility] Comment on above: Performed By: #### L 501.9520, L500.2500, L500.4100, L501.5200 ####[facility] [address] [place], [address] Creatinine [Mass/Vol] 5.88 mg/dL High 0.70-1.30 [facility] Comment on above: Result Comment: The validity of the calculated GFR GFRAA in patients over70 years has not been determined. Clinical correlation isessential. Performed By: #### L 501.9520, L500.2500, L500.4100, L501.5200 ####[facility] [address] [place], [address] ECRCL 19.51 ml/min Normal [facility] Comment on above: Performed By: #### L 501.9520, L500.2500, L500.4100, L501.5200 ####[facility] [address] [place], [address] EST GFR - AA 14 mL/min Low >60 [facility] Comment on above: Result Comment: Afri can Bahamian GFR Calc Performed By: #### L 501.9520, L500.2500, L500.4100, L501.5200 ####[facility] [address] [place], [address] GAP 12 Normal 5-15 [facility] Comment on above: Performed By: #### L 501.9520, L500.2500, L500.4100, L501.5200 ####[facility] [address] [place], [address] GFR/1.73 sq M.predicted among non-blacks MDRD (S/P/Bld) [Vol rate/Area] 11 mL/min/{1.73_m2} Low >60 [facility] Comment on above: Result Comment: Non- GFR Calc Performed By: #### L 501.9520, L500.2500, L500.4100, L501.5200 ####[facility] [address] [place], [address] Glucose [Mass/Vol] 216 mg/dL High 74-106 [facility] Comment on above: Result Comment: Gluc ose result greater than or equal to 200 mg/dLsuggests DIABETES MELLITUS per A.D.A. criteria. Performed By: #### L 501.9520, L500.2500, L500.4100, L501.5200 ####[facility] [address] [place], [address] Potassium [Moles/Vol] 4.8 mmol/L Normal 3.5-5.1 [facility] Comment on above: Result Comment: Mode rate Hemolysis, Result may be falsely increased. Performed By: #### L 501.9520, L500.2500, L500.4100, L501.5200 ####[facility] [address] [place], [address] Sodium [Moles/Vol] 134 mmol/L Low 136-145 [facility] Comment on above: Performed By: #### L 501.9520, L500.2500, L500.4100, L501.5200 ####[facility] [address] [place], [address] Urea nitrogen [Mass/Vol] 79 mg/dL High 7-18 [facility] Comment on above: Performed By: #### L 501.9520, L500.2500, L500.4100, L501.5200 ####[facility] [address] [place], [address] BUN Normal 7-18 [facility] Comment on above: Order Comment: Call MD with results STAT Result Comment: This specimen has been REJECTED due to Laboratory criteria:Duplicate Order.01/23/24150 Lamarsofiya Colon Performed By: #### L 3300.0960, L500.2500, L501.9985, L505.5000 ####[facility] [address] [place], [address] BUN/CRE Normal 10-20 [facility] Comment on above: Order Comment: Call MD with results STAT Result Comment: This specimen has been REJECTED due to Laboratory criteria:Duplicate Order.01/23/24150 Lamar Colon Performed By: #### L 3300.0960, L500.2500, L501.9985, L505.5000 ####[facility] [address] [place], [address] CA,Total Normal 8.5-10.1 [facility] Comment on above: Order Comment: Call MD with results STAT Result Comment: This specimen has been REJECTED due to Laboratory criteria:Duplicate Order.01/23/24150 Lamar Colon Performed By: #### L 3300.0960, L500.2500, L501.9985, L505.5000 ####[facility] [address] [place], [address] CL Normal 98-107 [facility] Comment on above: Order Comment: Call MD with results STAT Result Comment: This specimen has been REJECTED due to Laboratory criteria:Duplicate Order.01/23/24150 Lamar Colon Performed By: #### L 3300.0960, L500.2500, L501.9985, L505.5000 ####[facility] [address] [place], [address] CO2 Normal 21.0-32.0 [facility] Comment on above: Order Comment: Call MD with results STAT Result Comment: This specimen has been REJECTED due to Laboratory criteria:Duplicate Order.01/23/24150 Lamarsofiya Rochaell Performed By: #### L 3300.0960, L500.2500, L501.9985, L505.5000 ####[facility] [address] [place], [address] CREAT,SERUM Normal 0.70-1.30 [facility] Comment on above: Order Comment: Call MD with results STAT Result Comment: This specimen has been REJECTED due to Laboratory criteria:Duplicate Order.01/23/24150 Lamar Rochaell Performed By: #### L 3300.0960, L500.2500, L501.9985, L505.5000 ####[facility] [address] [place], [address] EST GFR Normal >60 [facility] Comment on above: Order Comment: Call MD with results STAT Result Comment: This specimen has been REJECTED due to Laboratory criteria:Duplicate Order.01/23/24150 Lamarsofiya Rochaell Performed By: #### L 3300.0960, L500.2500, L501.9985, L505.5000 ####[facility] [address] [place], [address] EST GFR - AA Normal >60 [facility] Comment on above: Order Comment: Call MD with results STAT Result Comment: This specimen has been REJECTED due to Laboratory criteria:Duplicate Order.01/23/24150 Lamar Colon Performed By: #### L 3300.0960, L500.2500, L501.9985, L505.5000 ####[facility] [address] [place], [address] GAP Normal 5-15 [facility] Comment on above: Order Comment: Call MD with results STAT Result Comment: This specimen has been REJECTED due to Laboratory criteria:Duplicate Order.01/23/24150 Lamar C George Performed By: #### L 3300.0960, L500.2500, L501.9985, L505.5000 ####[facility] [address] [place], [address] GLU Normal 74-106 [facility] Comment on above: Order Comment: Call MD with results STAT Result Comment: This specimen has been REJECTED due to Laboratory criteria:Duplicate Order.01/23/24150 Lamar C Darlene Performed By: #### L 3300.0960, L500.2500, L501.9985, L505.5000 ####[facility] [address] [place], [address] Potassium Normal 3.5-5.1 [facility] Comment on above: Order Comment: Call MD with results STAT Result Comment: This specimen has been REJECTED due to Laboratory criteria:Duplicate Order.01/23/24150 Lamarsofiya Rochaell Performed By: #### L 3300.0960, L500.2500, L501.9985, L505.5000 ####[facility] [address] [place], [address] Basic Metabolic Profile (BMP) Normal 136-145 [facility] Comment on above: Order Comment: Call MD with results STAT Result Comment: This specimen has been REJECTED due to Laboratory criteria:Duplicate Order.01/23/24150 Lamarsofiya Rochaell Performed By: #### L 3300.0960, L500.2500, L501.9985, L505.5000 ####[facility] [address] [place], [address] Bedside Glucoseon 01-23-2024 FINGERSTICK GLU 171 mg/dL High 74-106 [facility] Comment on above: Result Comment: EDUARDO JACOBO OF PATIENT CARE PER NURSING PROTOCOL Performed By: #### L 501.080 ####[facility] [address] [place], [address] FINGERSTICK GLU 82 mg/dL Normal 74-106 [facility] Comment on above: Result Comment: Dr Anna Marie martinez FollowedMANAGEMENT OF PATIENT CARE PER NURSING PROTOCOL Performed By: #### L 501.080 ####[facility] [address] [place], [address] FINGERSTICK GLU 100 mg/dL Normal 74-106 [facility] Comment on above: Result Comment: Dr Anna Marie martinez FollowedMANAGEMENT OF PATIENT CARE PER NURSING PROTOCOL Performed By: #### L 501.080 ####[facility] [address] [place], [address] FINGERSTICK GLU 84 mg/dL Normal 74-106 [facility] Comment on above: Result Comment: EDUARDO GEMENT OF PATIENT CARE PER NURSING PROTOCOL Performed By: #### L 501.080 ####[facility] [address] [place], [address] FINGERSTICK GLU 97 mg/dL Normal 74-106 [facility] Comment on above: Result Comment: EDUARDO GEMENT OF PATIENT CARE PER NURSING PROTOCOL Performed By: #### L 501.080 ####[facility] [address] [place], [address] FINGERSTICK GLU 105 mg/dL Normal 74-106 [facility] Comment on above: Result Comment: EDUARDO GEMENT OF PATIENT CARE PER NURSING PROTOCOL Performed By: #### L 501.080 ####[facility] [address] [place], [address] FINGERSTICK GLU 129 mg/dL High 74-106 [facility] Comment on above: Result Comment: EDUARDO GEMENT OF PATIENT CARE PER NURSING PROTOCOL Performed By: #### L 501.080 ####[facility] [address] [place], [address] FINGERSTICK GLU 158 mg/dL High 74-106 [facility] Comment on above: Result Comment: EDUARDO GEMENT OF PATIENT CARE PER NURSING PROTOCOL Performed By: #### L 501.080 ####[facility] [address] [place], [address] FINGERSTICK GLU 223 mg/dL High 74-106 [facility] Comment on above: Result Comment: EDUARDO GEMENT OF PATIENT CARE PER NURSING PROTOCOL Performed By: #### L 501.080 ####[facility] [address] [place], [address] FINGERSTICK GLU 240 mg/dL High 74-106 [facility] Comment on above: Result Comment: EDUARDO GEMENT OF PATIENT CARE PER NURSING PROTOCOL Performed By: #### L 501.080 ####[facility] [address] [place], [address] FINGERSTICK GLU 340 mg/dL High 74-106 [facility] Comment on above: Result Comment: EDUARDO GEMENT OF PATIENT CARE PER NURSING PROTOCOL Performed By: #### L 501.080 ####[facility] [address] [place], [address] Blood Gases by [facility] 01-22-2 024 Base excess Calc (Bld) [Moles/Vol] -17 mmol/L Low -2 to +2 [facility] Comment on above: Performed By: #### L 9000.0800 ####[facility] [address] [place], [address] Blood Gas Type ART Normal [facility] Comment on above: Performed By: #### L 9000.0800 ####[facility] [address] [place], [address] CO2 [Moles/Vol] 12 mmol/L Normal [facility] Comment on above: Performed By: #### L 9000.0800 ####[facility] [address] [place], [address] HCO3 (Bld) [Moles/Vol] 10.8 mmol/L Low 22-26 [facility] Comment on above: Performed By: #### L 9000.0800 ####[facility] [address] [place], [address] Mode Not entered [facility] Comment on above: Performed By: #### L 9000.0800 ####[facility] [address] [place], [address] O2 Delivery Dev Not entered [facility] Comment on above: Performed By: #### L 9000.0800 ####[facility] [address] [place], [address] pCO2 28.3 mmHg Low 35-45 [facility] Comment on above: Performed By: #### L 9000.0800 ####[facility] [address] [place], [address] pH (Bld) 7.19 [pH] Invalid Interpretation Code 7.35-7.45 [facility] Comment on above: Performed By: #### L 9000.0800 ####[facility] [address] [place], [address] PO2 39 mmHG Invalid Interpretation Code 75-100 [facility] Comment on above: Performed By: #### L 9000.0800 ####[facility] [address] [place], [address] Read Back By Yes [facility] Comment on above: Performed By: #### L 9000.0800 ####[facility] [address] [place], [address] SITE Not entered [facility] Comment on above: Performed By: #### L 9000.0800 ####[facility] [address] [place], [address] SO2 63 Low 95-99 [facility] Comment on above: Performed By: #### L 9000.0800 ####[facility] [address] [place], [address] DUANE TEST Positive Normal [facility] Comment on above: Performed By: #### L 8999.08 ####[facility] [address] [place], [address] Base excess Calc (Bld) [Moles/Vol] -6 mmol/L Low -2 to +2 [facility] Comment on above: Performed By: #### L 8999.08 ####[facility] [address] [place], [address] Blood Gas Type ART Normal [facility] Comment on above: Performed By: #### L 8999.08 ####[facility] [address] [place], [address] CO2 [Moles/Vol] 19 mmol/L Normal [facility] Comment on above: Performed By: #### L 8999.08 ####[facility] [address] [place], [address] FI02 4.0 Normal [facility] Comment on above: Performed By: #### L 8999.0800 ####[facility] [address] [place], [address] HCO3 (Bld) [Moles/Vol] 18.4 mmol/L Low 22-26 [facility] Comment on above: Performed By: #### L 8999.0800 ####[facility] [address] [place], [address] Mode Not entered Normal [facility] Comment on above: Performed By: #### L 0.0800 ####[facility] [address] [place], [address] O2 Delivery Dev Cannula Normal [facility] Comment on above: Performed By: #### L 0.0800 ####[facility] [address] [place], [address] pCO2 29.4 mmHg Low 35-45 [facility] Comment on above: Performed By: #### L 9000.0800 ####[facility] [address] [place], [address] pH (Bld) 7.40 [pH] Normal 7.35-7.45 [facility] Comment on above: Performed By: #### L 9000.0800 ####[facility] [address] [place], [address] PO2 63 mmHG Low 75-100 [facility] Comment on above: Performed By: #### L 9000.0800 ####[facility] [address] [place], [address] SITE R Radial Normal [facility] Comment on above: Performed By: #### L 9000.0800 ####[facility] [address] [place], [address] SO2 92 Low 95-99 [facility] Comment on above: Performed By: #### L 9000.0800 ####[facility] [address] [place], [address] CBC W/Diff, Automatedon 12-30 PATH REV Reviewed Normal [facility] Comment on above: Result Comment: Neut rophilic leukocytosis.Microcytic anemia.Clinical correlation necessary.Grzegorz Cheung M.D. 01/23/24 AMENDED REPORT 01/23/24 1550 PATH REV previously reported as: July Performed By: #### L 501.6900, L100.0100 ####[facility] [address] [place], [address] CVS/PCIREPORTon 01-23-2024 CVS/PCIREPORT Normal [facility] CXR for Line Placementon CXR for Line Placement Normal [facility] Chest 1 View (Portable)on Chest 1 View (Portable) Normal [facility] Consultation - Nephrologyon 01-23-2024 Consultation - Nephrology Normal [facility] D-Dimer Quantitative (DVT/PE )on 01-23-2024 D-DIMER QUANT 0.45 FEU/ug/m Normal 0.27-0.49 [facility] Comment on above: Result Comment: NORM AL D-Dimer level (<0.50) indicates no DVT or PE. Performed By: #### L 300.8000 ####[facility] [address] [place], [address] Echo Completeon 01-23-2024 Echo Complete Normal [facility] Hemoglobin A1con 01-23-2024 HbA1c (Bld) [Mass fraction] 7.9 % High 3.8-5.6 [facility] Comment on above: Result Comment: Norm al < 5.7 % Prediabetic 5.7 - 6.4 % Diabetic >or= 6.5 % Please note range changes. Performed By: #### L 3300.0960, L500.2500, L501.9985, L505.5000 ####[facility] [address] [place], [address] Hepatitis B Surface Antigeno n 01-23-2024 HEP B Surf Ag Non-Reactive Normal Nonreactive [facility] Comment on above: Order Comment: Reaso n for Exam: need for outpatient dialysis Performed By: #### L 3890.6100 ####[facility] [address] [place], [address] L501.4020on 01-23-2024 TROPONIN-I HS 2250 pg/mL Invalid Interpretation Code 3.0-78.0 [facility] Comment on above: Order Comment: 'TROP ' Serial specimen #1, #2 or #3: 2 Result Comment: Crit ical Result(s) Called at: 02:22:19 01/23/2024 by:Lamar Singh. Results read back by same. Please Note: New Test Units and Gender Specific Reference Ranges. For more information see Policy Stat Procedure Mobile High Sensitivity Troponin (TNIH) and attachments. Performed By: #### L 501.4020 ####[facility] [address] [place], [address] Lipid Profileon 01-23-2024 Cholesterol [Mass/Vol] 132 mg/dL Normal 200 [facility] Comment on above: Result Comment: <200 mg/dL Desirable 200-240 mg/dL Borderline >240 mg/dL High Risk Performed By: #### L 501.9520, L500.2500, L500.4100, L501.5200 ####[facility] [address] [place], [address] Cholesterol in HDL [Mass/Vol] 69 mg/dL Normal [facility] Comment on above: Result Comment: The drugs N-Acetylcysteine and Metamizole may falselydepress this assay. Reference Range HDL <40 mg/dL Low HDL Cholesterol HDL >or= 60 mg/dL High HDL Cholesterol Performed By: #### L 501.9520, L500.2500, L500.4100, L501.5200 ####[facility] [address] [place], [address] Cholesterol in LDL [Mass/Vol] 49 mg/dL Normal 0-130 [facility] Comment on above: Performed By: #### L 501.9520, L500.2500, L500.4100, L501.5200 ####[facility] [address] [place], [address] Cholesterol in VLDL [Mass/Vol] 14 mg/dL Normal 5-40 [facility] Comment on above: Performed By: #### L 501.9520, L500.2500, L500.4100, L501.5200 ####[facility] [address] [place], [address] Triglyceride [Mass/Vol] 72 mg/dL Normal [facility] Comment on above: Result Comment: The drugs N-Acetylcysteine and Metamizole may falselydepress this assay.Serum Triglycerides Reference Interval Normal <150 mg/dL Borderline high 150 - 199 mg/dL High 200 - 499 mg/dL Very High > or = 500 mg/dL Performed By: #### L 501.9520, L500.2500, L500.4100, L501.5200 ####[facility] [address] [place], [address] Magnesiumon 01-23-2024 Magnesium [Mass/Vol] 2.5 mg/dL Normal 1.6-2.6 [facility] Comment on above: Result Comment: Mode rate Hemolysis, Result may be falsely increased. Performed By: #### L 501.9520, L500.2500, L500.4100, L501.5200 ####[facility] [facility] [address] [place], [address] Partial Thromboplast Timeon 01-23-2024 aPTT Coag (Bld) [Time] 48.2 s High 24.1-36.2 [facility] Comment on above: Performed By: #### L 300.4310 ####[facility] [address] [place], [address] aPTT Coag (Bld) [Time] 27.1 s Normal 24.1-36.2 [facility] Comment on above: Performed By: #### L 300.4310, L300.3900 ####[facility] [address] [place], [address] Prothrombin Time w/INRon INR Coag (PPP) [Relative time] 1.1 {INR} Normal [facility] Comment on above: Performed By: #### L 300.4310, L300.3900 ####[facility] [address] [place], [address] PT Coag (PPP) [Time] 13.9 s Normal 11.7-14.9 [facility] Comment on above: Performed By: #### L 300.4310, L300.3900 ####[facility] [address] [place], [address] Thyroid Stim Hormone (TSH)on 01-23-2024 TSH 1.100 uIU/mL Normal 0.358-3.740 [facility] Comment on above: Performed By: #### L 501.9520, L500.2500, L500.4100, L501.5200 ####[facility] [address] [place], [address] Urine Drug Screen (VISTA)on 01-23-2024 AMPHETAMINES Negative Normal <1000 ng/mL [facility] Comment on above: Performed By: #### L 3300.0960, L500.2500, L501.9985, L505.5000 ####[facility] [address] [place], [address] BARBITIURATES Negative Normal < 200 ng/mL [facility] Comment on above: Performed By: #### L 3300.0960, L500.2500, L501.9985, L505.5000 ####[facility] [address] [place], [address] BENZODIAZIPINE Negative Normal < 200 ng/mL [facility] Comment on above: Performed By: #### L 3300.0960, L500.2500, L501.9985, L505.5000 ####[facility] [address] [place], [address] COCAINE Negative Normal < 300 ng/mL [facility] Comment on above: Performed By: #### L 3300.0960, L500.2500, L501.9985, L505.5000 ####[facility] [address] [place], [address] ECSTACY Negative Normal < 500 ng/mL [facility] Comment on above: Performed By: #### L 3300.0960, L500.2500, L501.9985, L505.5000 ####[facility] [address] [place], [address] METHADONE Negative Normal < 300 ng/mL [facility] Comment on above: Performed By: #### L 3300.0960, L500.2500, L501.9985, L505.5000 ####[facility] [address] [place], [address] OPIATES Negative Normal < 300 ng/mL [facility] Comment on above: Performed By: #### L 3300.0960, L500.2500, L501.9985, L505.5000 ####[facility] [address] [place], [address] PCP Negative Normal < 25 ng/mL [facility] Comment on above: Performed By: #### L 3300.0960, L500.2500, L501.9985, L505.5000 ####[facility] [address] [place], [address] THC Negative Normal < 50 ng/mL [facility] Comment on above: Performed By: #### L 3300.0960, L500.2500, L501.9985, L505.5000 ####[facility] [address] [place], [address] VISTA UDS PH 6 Normal [facility] Comment on above: Performed By: #### L 3300.0960, L500.2500, L501.9985, L505.5000 ####[facility] [address] [place], [address] 12 Lead EKGon 01-22-2024 12 Lead EKG Normal [facility] Acetone Serumon 01-22-2024 ACETONE SERUM SMALL Abnormal NEG [facility] Comment on above: Performed By: #### L 501.6900 ####[facility] [address] [place], [address] Bedside Glucoseon 01-22-2024 FINGERSTICK GLU 444 mg/dL High 74-106 [facility] Comment on above: Result Comment: EDUARDO JACOBO OF PATIENT CARE PER NURSING PROTOCOL Performed By: #### L 501.080 ####[facility] [address] [place], [address] FINGERSTICK GLU 488 mg/dL Invalid Interpretation Code 74-106 [facility] Comment on above: Result Comment: Dr Anna Marie martinez FollowedMANAGEMENT OF PATIENT CARE PER NURSING PROTOCOL Performed By: #### L 501.080 ####[facility] [address] [place], [address] CBC W/Diff, Automatedon 10- Absolute Lymph 1.01 X10 3/uL Normal 0.83-4.51 [facility] Comment on above: Performed By: #### L 501.4020, L100.0100, L500.4050 ####[facility] [address] [place], [address] Absolute Neut 10.1 X10 3/uL High 2.0-7.7 [facility] Comment on above: Performed By: #### L 501.4020, L100.0100, L500.4050 ####[facility] [address] [place], [address] Basophils/100 WBC (Bld) 0.6 % Normal 0-1 [facility] Comment on above: Performed By: #### L 501.4020, L100.0100, L500.4050 ####[facility] [address] [place], [address] Eosinophils/100 WBC (Bld) 0.1 % Normal 0-5 [facility] Comment on above: Performed By: #### L 501.4020, L100.0100, L500.4050 ####[facility] [address] [place], [address] Erythrocyte distribution width (RBC) [Ratio] 12.7 % Normal 11.6-14.6 [facility] Comment on above: Performed By: #### L 501.4020, L100.0100, L500.4050 ####[facility] [address] [place], [address] Hematocrit (Bld) [Volume fraction] 26.8 % Low 40-54 [facility] Comment on above: Performed By: #### L 501.4020, L100.0100, L500.4050 ####[facility] [address] [place], [address] Hemoglobin (Bld) [Mass/Vol] 8.6 g/dL Low 13.0-16. 5 [facility] Comment on above: Performed By: #### L 501.4020, L100.0100, L500.4050 ####[facility] [address] [place], [address] IG% 0.500 Normal 0.0-0.9 [facility] Comment on above: Result Comment: IG% - Immature Granulocytes (promyelocytes, myelocytes andmetamyelocytes) > 1% indicates that a LEFT SHIFT is Present. Performed By: #### L 501.4020, L100.0100, L500.4050 ####[facility] [address] [place], [address] Lymphocytes/100 WBC (Bld) 8.5 % Low 19-41 [facility] Comment on above: Performed By: #### L 501.4020, L100.0100, L500.4050 ####[facility] [address] [place], [address] MCH (RBC) [Entitic mass] 26.5 pg Low 27.0-32.0 [facility] Comment on above: Performed By: #### L 501.4020, L100.0100, L500.4050 ####[facility] [address] [place], [address] MCHC (RBC) [Mass/Vol] 32.1 g/dL Normal 32-36 [facility] Comment on above: Performed By: #### L 501.4020, L100.0100, L500.4050 ####[facility] [address] [place], [address] MCV (RBC) [Entitic vol] 82.5 fL Normal 80-94 [facility] Comment on above: Performed By: #### L 501.4020, L100.0100, L500.4050 ####[facility] [address] [place], [address] Monocytes/100 WBC (Bld) 5.5 % Normal 0-10 [facility] Comment on above: Performed By: #### L 501.4020, L100.0100, L500.4050 ####[facility] [address] [place], [address] Neutrophils/100 WBC (Bld) 84.8 % High 47-70 [facility] Comment on above: Performed By: #### L 501.4020, L100.0100, L500.4050 ####[facility] [address] [place], [address] Nucleated RBC (Bld) [#/Vol] 0 10*3/uL Normal 0-5 [facility] Comment on above: Performed By: #### L 501.4020, L100.0100, L500.4050 ####[facility] [address] [place], [address] Platelet mean volume (Bld) [Entitic vol] 9.6 fL Normal 6.2-12.0 [facility] Comment on above: Performed By: #### L 501.4020, L100.0100, L500.4050 ####[facility] [address] [place], [address] Platelets (Bld) [#/Vol] 340 10*3/uL Normal 150-450 [facility] Comment on above: Performed By: #### L 501.4020, L100.0100, L500.4050 ####[facility] [address] [place], [address] RBC (Bld) [#/Vol] 3.25 10*6/uL Low 4.6-6.2 [facility] Comment on above: Performed By: #### L 501.4020, L100.0100, L500.4050 ####[facility] [address] [place], [address] RDW SD 38.4 fl Normal 35.1-43.9 [facility] Comment on above: Performed By: #### L 501.4020, L100.0100, L500.4050 ####[facility] [address] [place], [address] WBC (Bld) [#/Vol] 11.9 10*3/uL High 4.4-11.0 [facility] Comment on above: Performed By: #### L 501.4020, L100.0100, L500.4050 ####[facility] [address] [place], [address] Chest PA and Lateralon 01-21 Chest PA and Lateral Normal [facility] Comprehensive Metabolic Prof ilon 01-22-2024 Albumin [Mass/Vol] 3.7 g/dL Normal 3.2-5.0 [facility] Comment on above: Order Comment: 'TROP ' Serial specimen #1, #2 or #3: 11 Performed By: #### L 501.4020, L100.0100, L500.4050 ####[facility] [address] [place], [address] Albumin/Globulin [Mass ratio] 1.0 {ratio} Normal 0.9-2.4 [facility] Comment on above: Order Comment: 'TROP ' Serial specimen #1, #2 or #3: 11 Performed By: #### L 501.4020, L100.0100, L500.4050 ####[facility] [address] [place], [address] ALK P 72 U/L Normal 45-117 [facility] Comment on above: Order Comment: 'TROP ' Serial specimen #1, #2 or #3: 11 Performed By: #### L 501.4020, L100.0100, L500.4050 ####[facility] [address] [place], [address] ALT [Catalytic activity/Vol] 31 U/L Normal 16-61 [facility] Comment on above: Order Comment: 'TROP ' Serial specimen #1, #2 or #3: 11 Performed By: #### L 501.4020, L100.0100, L500.4050 ####[facility] [address] [place], [address] AST [Catalytic activity/Vol] 20 U/L Normal 15-37 [facility] Comment on above: Order Comment: 'TROP ' Serial specimen #1, #2 or #3: 11 Performed By: #### L 501.4020, L100.0100, L500.4050 ####[facility] [address] [place], [address] Bilirubin [Mass/Vol] 0.40 mg/dL Normal 0.20-1.00 [facility] Comment on above: Order Comment: 'TROP ' Serial specimen #1, #2 or #3: 11 Result Comment: For patients on eltrombopag therapy, use of Dimension Mobile TBIL is not recommended. Performed By: #### L 501.4020, L100.0100, L500.4050 ####[facility] [address] [place], [address] BUN/CRE 12.9 RATIO Normal 10-20 [facility] Comment on above: Order Comment: 'TROP ' Serial specimen #1, #2 or #3: 11 Performed By: #### L 501.4020, L100.0100, L500.4050 ####[facility] [address] [place], [address] CA,Total 9.2 mg/dL Normal 8.5-10.1 [facility] Comment on above: Order Comment: 'TROP ' Serial specimen #1, #2 or #3: 11 Performed By: #### L 501.4020, L100.0100, L500.4050 ####[facility] [address] [place], [address] Chloride [Moles/Vol] 97 mmol/L Low 98-107 [facility] Comment on above: Order Comment: 'TROP ' Serial specimen #1, #2 or #3: 11 Performed By: #### L 501.4020, L100.0100, L500.4050 ####[facility] [address] [place], [address] CO2 [Moles/Vol] 15.0 mmol/L Low 21.0-32.0 [facility] Comment on above: Order Comment: 'TROP ' Serial specimen #1, #2 or #3: 11 Performed By: #### L 501.4020, L100.0100, L500.4050 ####[facility] [address] [place], [address] Creatinine [Mass/Vol] 6.20 mg/dL High 0.70-1.30 [facility] Comment on above: Order Comment: 'TROP ' Serial specimen #1, #2 or #3: 11 Result Comment: The validity of the calculated GFR GFRAA in patients over70 years has not been determined. Clinical correlation isessential. Performed By: #### L 501.4020, L100.0100, L500.4050 ####[facility] [address] [place], [address] ECRCL 18.52 ml/min Normal [facility] Comment on above: Order Comment: 'TROP ' Serial specimen #1, #2 or #3: 11 Performed By: #### L 501.4020, L100.0100, L500.4050 ####[facility] [address] [place], [address] EST GFR - AA 13 mL/min Low >60 [facility] Comment on above: Order Comment: 'TROP ' Serial specimen #1, #2 or #3: 11 Result Comment: Afri can Bahamian GFR Calc Performed By: #### L 501.4020, L100.0100, L500.4050 ####[facility] [address] [place], [address] GAP 18 High 5-15 [facility] Comment on above: Order Comment: 'TROP ' Serial specimen #1, #2 or #3: 11 Performed By: #### L 501.4020, L100.0100, L500.4050 ####[facility] [address] [place], [address] GFR/1.73 sq M.predicted among non-blacks MDRD (S/P/Bld) [Vol rate/Area] 11 mL/min/{1.73_m2} Low >60 [facility] Comment on above: Order Comment: 'TROP ' Serial specimen #1, #2 or #3: 11 Result Comment: Non- GFR Calc Performed By: #### L 501.4020, L100.0100, L500.4050 ####[facility] [address] [place], [address] Globulin (S) [Mass/Vol] 3.8 g/dL Normal 2.2-4.2 [facility] Comment on above: Order Comment: 'TROP ' Serial specimen #1, #2 or #3: 11 Performed By: #### L 501.4020, L100.0100, L500.4050 ####[facility] [address] [place], [address] Glucose [Mass/Vol] 491 mg/dL Invalid Interpretation Code 74106 [facility] Comment on above: Order Comment: 'TROP ' Serial specimen #1, #2 or #3: 11 Result Comment: Crit ical Result(s) Called at: 23:15:15 01/22/2024 by: LAURENCE. Results read back by Ken MtzGlucose result greater than or equal to 200 mg/dLsuggests DIABETES MELLITUS per A.D.A. criteria. Performed By: #### L 501.4020, L100.0100, L500.4050 ####[facility] [address] [place], [address] Potassium [Moles/Vol] 4.4 mmol/L Normal 3.5-5.1 [facility] Comment on above: Order Comment: 'TROP ' Serial specimen #1, #2 or #3: 11 Performed By: #### L 501.4020, L100.0100, L500.4050 ####[facility] [address] [place], [address] Sodium [Moles/Vol] 130 mmol/L Low 136-145 [facility] Comment on above: Order Comment: 'TROP ' Serial specimen #1, #2 or #3: 11 Performed By: #### L 501.4020, L100.0100, L500.4050 ####[facility] [address] [place], [address] T PROT 7.5 g/dL Normal 6.4-8.2 [facility] Comment on above: Order Comment: 'TROP ' Serial specimen #1, #2 or #3: 11 Performed By: #### L 501.4020, L100.0100, L500.4050 ####[facility] [address] [place], [address] Urea nitrogen [Mass/Vol] 80 mg/dL High 7-18 [facility] Comment on above: Order Comment: 'TROP ' Serial specimen #1, #2 or #3: 11 Performed By: #### L 501.4020, L100.0100, L500.4050 ####[facility] [address] [place], [address] Emergency Department Summary on 01-22-2024 Emergency Department Summary Normal [facility] H AND P Exam - Hospitaliston 01-22-2024 H&P Exam - Hospitalist Normal [facility] L501.4020on 01-22-2024 TROPONIN-I HS 588 pg/mL Invalid Interpretation Code 3.0-78.0 [facility] Comment on above: Order Comment: 'TROP ' Serial specimen #1, #2 or #3: 11 Result Comment: Crit ical Result(s) Called at: 23:14:57 01/22/2024 by: LAURENCE. Results read back by Ken Mtz Please Note: New Test Units and Gender Specific Reference Ranges. For more information see Policy Stat Procedure Mobile High Sensitivity Troponin (TNIH) and attachments. Performed By: #### L 501.4020, L100.0100, L500.4050 ####[facility] [address] [place], [address] Urinalysis, Completeon 01-21 BACTERIA Normal None Seen [facility] Comment on above: Order Comment: CLEAN CATCH Result Comment: Canc elled via OM: MD Ordered Performed By: #### L 400.0001 ####[facility] [address] [place], [address] BILIRUBIN URINE Normal Negative [facility] Comment on above: Order Comment: CLEAN CATCH Result Comment: Canc elled via OM: Ordered Performed By: #### L 400.0001 ####[facility] [address] [place], [address] Clarity (U) Normal Clear [facility] Comment on above: Order Comment: CLEAN CATCH Result Comment: Canc elled via OM: MD Ordered Performed By: #### L 400.0001 ####[facility] [address] [place], [address] Color (U) Normal Yellow [facility] Comment on above: Order Comment: CLEAN CATCH Result Comment: Canc elled via OM: MD Ordered Performed By: #### L 400.0001 ####[facility] [address] [place], [address] EPI,SQUAMOUS Normal 0-5 [facility] Comment on above: Order Comment: CLEAN CATCH Result Comment: Canc elled via OM: MD Ordered Performed By: #### L 400.0001 ####[facility] [address] [place], [address] GLUCOSE, UR Normal Normal [facility] Comment on above: Order Comment: CLEAN CATCH Result Comment: Canc elled via OM: MD Ordered Performed By: #### L 400.0001 ####[facility] [address] [place], [address] KETONE UR Normal Negative [facility] Comment on above: Order Comment: CLEAN CATCH Result Comment: Canc elled via OM: MD Ordered Performed By: #### L 400.0001 ####[facility] [address] [place], [address] LEUK ESTERASE Normal Negative [facility] Comment on above: Order Comment: CLEAN CATCH Result Comment: Canc elled via OM: MD Ordered Performed By: #### L 400.0001 ####[facility] [address] [place], [address] Mucus Ql (Urine sed) Normal [facility] Comment on above: Order Comment: CLEAN CATCH Result Comment: Canc elled via OM: MD Ordered Performed By: #### L 400.0001 ####[facility] [address] [place], [address] Nitrite Ql (U) Normal Negative [facility] Comment on above: Order Comment: CLEAN CATCH Result Comment: Canc elled via OM: MD Ordered Performed By: #### L 400.0001 ####[facility] [address] [place], [address] OCCULT BLOOD-UR Normal Negative [facility] Comment on above: Order Comment: CLEAN CATCH Result Comment: Canc elled via OM: MD Ordered Performed By: #### L 400.0001 ####[facility] [address] [place], [address] pH UR Normal 5.0 - 8.0 [facility] Comment on above: Order Comment: CLEAN CATCH Result Comment: Canc elled via OM: MD Ordered Performed By: #### L 400.0001 ####[facility] [address] [place], [address] PROT DIPSTX Normal Negative [facility] Comment on above: Order Comment: CLEAN CATCH Result Comment: Canc elled via OM: MD Ordered Performed By: #### L 400.0001 ####[facility] [address] [place], [address] RBC Normal 0-5 [facility] Comment on above: Order Comment: CLEAN CATCH Result Comment: Canc elled via OM: MD Ordered Performed By: #### L 400.0001 ####[facility] [address] [place], [address] SP.GR. DIPSTX Normal 1.002-1.030 [facility] Comment on above: Order Comment: CLEAN CATCH Result Comment: Canc elled via OM: MD Ordered Performed By: #### L 400.0001 ####[facility] [address] [place], [address] UR Preservative Normal [facility] Comment on above: Order Comment: CLEAN CATCH Result Comment: Canc elled via OM: MD Ordered Performed By: #### L 400.0001 ####[facility] [address] [place], [address] UROBILI Normal Normal [facility] Comment on above: Order Comment: CLEAN CATCH Result Comment: Canc elled via OM: MD Ordered Performed By: #### L 400.0001 ####[facility] [address] [place], [address] WBC Normal 0-5 [facility] Comment on above: Order Comment: CLEAN CATCH Result Comment: Canc elled via OM: MD Ordered Performed By: #### L 400.0001 ####[facility] [address] [place], [address] BACTERIA RARE Normal None Seen [facility] Comment on above: Order Comment: COLLE CTOR TO SPECIFY Performed By: #### L 400.0001 ####[facility] [address] [place], [address] EPI,SQUAMOUS 0 SEEN Normal 0-[address] [place] [address] Comment on above: Order Comment: COLLE CTOR TO SPECIFY Performed By: #### L 400.0001 ####[facility] [address] [place], [address] Mucus Ql (Urine sed) [address] [facility] Comment on above: Order Comment: COLLE CTOR TO SPECIFY Performed By: #### L 400.0001 ####[facility] [address] [place], [address] RBC 0 SEEN Normal 0-[address] [place] [address] Comment on above: Order Comment: COLLE CTOR TO SPECIFY Performed By: #### L 400.0001 ####[facility] [address] [place], [address] WBC 0 SEEN Normal 0-[address] [place] [address] Comment on above: Order Comment: COLLE CTOR TO SPECIFY Performed By: #### L 400.0001 ####[facility] [address] [place], [address] Venous Blood Gason 4 Blood Gas Type ARMANI Normal [facility] Comment on above: Performed By: #### L 9000.0810 ####[facility] [address] [place], [address] CO2 [Moles/Vol] 16 mmol/L Low 23-33 [facility] Comment on above: Performed By: #### L 900.0810 ####[facility] [address] [place], [address] HCO3 (Bld) [Moles/Vol] 15 mmol/L Low 22-26 [facility] Comment on above: Performed By: #### L 900.0810 ####[facility] [address] [place], [address] O2 Delivery Dev Room Air Normal [facility] Comment on above: Performed By: #### L 9000.0810 ####[facility] [address] [place], [address] SITE Not entered Normal [facility] Comment on above: Performed By: #### L 9000.0810 ####[facility] [address] [place], [address] VBG BE -10 mmol/L Low -1.0-3.5 [facility] Comment on above: Performed By: #### L 9000.0810 ####[facility] [address] [place], [address] VBG pCO2 28.2 mmHg Low 41-51 [facility] Comment on above: Performed By: #### L 9000.0810 ####[facility] [address] [place], [address] VBG pH 7.35 Normal 7.32-7.42 [facility] Comment on above: Performed By: #### L 9000.0810 ####[facility] [address] [place], [address] VBG PO2 36 mmHg Normal 25-40 [facility] Comment on above: Performed By: #### L 9000.0810 ####[facility] [address] [place], [address] VBG SO2 68 Normal 50-70 [facility] Comment on above: Performed By: #### L 9000.0810 ####[facility] [address] [place], [address] XR TIBIA/FIBULA 2 VIEWS LEFT on 12-21-2023 [...] 12/21/2023 2:02:00 AM Ordering Provider: NATALYAY REFERRING [facility] MAIN XR TIBIA/FIBULA 2 VIEWS [facility] 12-21-2023 XR TIBIA/FIBULA 2 VIEWS RIGHT [...] 12/21/2023 2:02:00 AM Ordering Provider: NATALYAY REFERRING [facility] MAIN CT Abdomen and Pelvis WO con traston 08-28-2023 IMPRESSION: Vascular atherosclerotic calcifications as described. Shuttle Van Driver: NEW Transcribe Date/Time: Aug 28 2023 1:35P Dictated by : JAKOB QUINTERO DO This examination was interpreted and the report reviewed and electronically signed by: SUSHIL ETIENNE MD on Aug 28 2023 2:41PM [facility] DIVISION OF RADIOLOGY * * *Final Report* * * DATE OF EXAM: Aug 28 2023 11:40AM [facility]BD/PEL WO IVCON / [...] No additional findings. DIVISION OF RADIOLOGY Provider, [facility] [place] - 08/28/2023 * * *Final Report* * * DATE OF EXAM: Aug 28 2023 11:40AM [facility] [place] ABD/PEL WO IVCON / [...] IMPRESSION IMPRESSION: Vascular atherosclerotic calcifications as described. Shuttle Van Driver: NEW Transcribe Date/Time: Aug 28 2023 1:35P Dictated by : JAKOB QUINTERO DO This examination was interpreted and the report reviewed and electronically signed by: SUSHIL ETIENNE MD on Aug 28 2023 2:41PM EST [facility] Radiology Study observation (narrative) [facility] CT Abdomen and Pelvis WO con trastOrdered By: [facility] Provider on 08-28-2023 [facility] Thin prep Papanicolaou smear with manual screeningOrdered By: Caleb Vargas on 08-01-2023 Thin prep Papanicolaou smear with manual screening 93 mg/dL 74-106 [facility] Comment on above: MANAGEMENT OF PATIEN T CARE PER NURSING PROTOCOL Basophil percentageOrdered B y: Daisy Diaz on 07-23-2023 Basophil percentage 5.7 mg/dL 2.5-4.9 [place] Chloride [Moles/Vol] 105 mmol/L 98-107 [facility] Glucose [Mass/Vol] 253 mg/dL 74-106 [facility] Comment on above: Glucose result great er than or equal to 200 mg/dLsuggests DIABETES MELLITUS per A.D.A. criteria. Potassium [Moles/Vol] 5.3 mmol/L 3.5-5.1 [facility] Sodium [Moles/Vol] 135 mmol/L 136-145 [facility] Laboratory - Chemistry and C hemistry - challengeOrdered By: Daisy Diaz on 07-23-2023 CO2 [Moles/Vol] 23.0 mmol/L 21.0-32.0 [facility] Urea nitrogen/Creatinine [Mass ratio] 14.7 mg/mg 10-20 [facility] No Panel InformationOrdered By: Daisy Diaz on 07-23-2023 Estimated GFR (MDRD) Amer 16 mL/min >60 [facility] Comment on above: GFR Calc Estimated GFR (MDRD) Non-Af Amer 13 mL/min >60 [facility] Comment on above: Non- GFR Calc Serum or plasma calcium jessie urement (mass/volume)Ordered By: Daisy Diaz on 07-23-2023 Calcium [Mass/Vol] 9.4 mg/dL 8.5-10.1 [facility] Serum or plasma creatinine m easurement (mass/volume)Ordered By: Daisy Diaz on 07-23-2023 Creatinine [Mass/Vol] 5.09 mg/dL 0.70-1.30 [facility] Comment on above: The validity of the calculated GFR & GFRAA in patients over 70 years has not been determined. Clinical correlation is essential. Serum or plasma urea nitroge n measurement (mass/volume)Ordered By: Daisy Diaz on 07-23-2023 Urea nitrogen [Mass/Vol] 75 mg/dL 7-18 [facility] Thin prep Papanicolaou smear with manual screeningOrdered By: Daisy Diaz on 07-23-2023 Thin prep Papanicolaou smear with manual screening 3.3 g/dL 3.2-5.0 [facility] Absolute lymphocyte countOrd ered By: Nelly Gross on 07-03-2023 Lymphocytes Auto (Unsp spec) [#/Vol] 2.01 10*3/uL 0.83-4.51 [facility] Automated lymphocyte count a s percentage of total leukocytesOrdered By: Nelly Gross on 07-03-2023 Lymphocytes/100 WBC Auto (Unsp spec) 27.4 % 19-41 [facility] Basophil percentageOrdered B y: Nelly Gross on 07-03-2023 Basophils/100 WBC (Bld) 1.0 % 0-1 [facility] Eosinophils/100 WBC (Bld) 5.0 % 0-5 [facility] Hemoglobin (Bld) [Mass/Vol] 9.7 g/dL 13.0-16. 5 [facility] Monocytes/100 WBC (Bld) 11.9 % 0-10 [facility] Neutrophils (Bld) [#/Vol] 4.0 10*3/uL 2.0-7.7 [facility] Neutrophils/100 WBC (Bld) 54.4 % 47-70 [facility] WBC (Bld) [#/Vol] 7.3 10*3/uL 4.4-11.0 [facility] Basophil percentageOrdered B y: Louis Koehler on 07-03-2023 Chloride [Moles/Vol] 111 mmol/L 98-107 [facility] Glucose [Mass/Vol] 110 mg/dL 74-106 [facility] Comment on above: Fasting Glucose resu lt from 100 to 125 mg/dL suggests IMPAIRED HOMEOSTASIS per A.D.A. criteria. Potassium [Moles/Vol] 3.9 mmol/L 3.5-5.1 [facility] Sodium [Moles/Vol] 140 mmol/L 136-145 [facility] Determination of erythrocyte mean corpuscular volume (MCV)Ordered By: Nelly Gross on 07-03-2023 MCV (RBC) [Entitic vol] 82.4 fL 80-94 [facility] Erythrocyte distribution wid th ratioOrdered By: Nelly Gross on 07-03-2023 Erythrocyte distribution width (RBC) [Ratio] 13.3 % 11.6-14.6 [facility] Erythrocyte distribution wid th standard deviationOrdered By: Nelly Gross on 07-03-2023 Erythrocyte distribution width (RBC) [Entitic vol] 40.3 fL 35.1-43.9 [facility] Hematocrit Auto (Bld) [Volum e fraction]Ordered By: Nelly Gross on 07-03-2023 Hematocrit (Bld) [Volume fraction] 29.4 % 40-54 [facility] Immature granulocytes/100 WB C Auto (Bld)Ordered By: Nelly Gross on 07-03-2023 Immature granulocytes/100 WBC (Bld) 0.300 % 0.0-0.9 [facility] Comment on above: IG% - Immature Granu locytes (promyelocytes, myelocytes and metamyelocytes) > 1% indicates that a LEFT SHIFT is Present. Laboratory - Chemistry and C hemistry - challengeOrdered By: Louis Koelher on 07-03-2023 CO2 [Moles/Vol] 23.0 mmol/L 21.0-32.0 [facility] Urea nitrogen/Creatinine [Mass ratio] 10.1 mg/mg 10-20 [facility] Laboratory - Hematology and Cell countsOrdered By: Nelly Gross on 07-03-2023 MCH (RBC) [Entitic mass] 27.2 pg 27.0-32.0 [facility] MCHC (RBC) [Mass/Vol] 33.0 g/dL 32-36 [facility] Nucleated RBC/100 WBC (Bld) [Ratio] 0 % 0-5 [facility] Platelet mean volume (Bld) [Entitic vol] 8.9 fL 6.2-12.0 [facility] Platelets (Bld) [#/Vol] 286 10*3/uL 150-450 [facility] No Panel InformationOrdered By: Louis Koehler on 07-03-2023 Estimated Creatinine Clearance Calc 24.30 ml/min [facility] Estimated GFR (MDRD) Amer 17 mL/min >60 [facility] Comment on above: GFR Calc Estimated GFR (MDRD) Non-Af Amer 14 mL/min >60 [facility] Comment on above: Non- GFR Calc RBC Auto (Bld) [#/Vol]Ordere d By: Nelly Gross on 07-03-2023 RBC (Bld) [#/Vol] 3.57 10*6/uL 4.6-6.2 [place] Serum or plasma calcium jessie urement (mass/volume)Ordered By: Louis Koehler on 07-03-2023 Calcium [Mass/Vol] 9.0 mg/dL 8.5-10.1 [facility] Serum or plasma creatinine m easurement (mass/volume)Ordered By: Louis Koehler on 07-03-2023 Creatinine [Mass/Vol] 4.94 mg/dL 0.70-1.30 [facility] Comment on above: The validity of the calculated GFR & GFRAA in patients over 70 years has not been determined. Clinical correlation is essential. Serum or plasma urea nitroge n measurement (mass/volume)Ordered By: Louis Koehler on 07-03-2023 Urea nitrogen [Mass/Vol] 50 mg/dL 7-18 [facility] Thin prep Papanicolaou smear with manual screeningOrdered By: Louis Koehler on 07-03-2023 Thin prep Papanicolaou smear with manual screening 6 5-15 [facility] Absolute lymphocyte countOrd ered By: Louis Koehler on 07-02-2023 Lymphocytes Auto (Unsp spec) [#/Vol] 1.38 10*3/uL 0.83-4.51 [facility] Automated lymphocyte count a s percentage of total leukocytesOrdered By: Louis Koehler on 07-02-2023 Lymphocytes/100 WBC Auto (Unsp spec) 14.4 % 19-41 [facility] Basophil percentageOrdered B y: Louis Rodo on 07-02-2023 Basophils/100 WBC (Bld) 0.8 % 0-1 [facility] Chloride [Moles/Vol] 112 mmol/L 98-107 [facility] Cholesterol [Mass/Vol] 170 mg/dL <200 [facility] Comment on above: <200 mg/dL Desirable 200-240 mg/dL Borderline >240 mg/dL High Risk Eosinophils/100 WBC (Bld) 2.9 % 0-5 [facility] Glucose [Mass/Vol] 151 mg/dL 74-106 [facility] Comment on above: Fasting Glucose resu lt greater than or equal to 126 mg/dL suggests DIABETES MELLITUS per A.D.A. criteria. Hemoglobin (Bld) [Mass/Vol] 9.0 g/dL 13.0-16. 5 [facility] Monocytes/100 WBC (Bld) 8.6 % 0-10 [facility] Neutrophils (Bld) [#/Vol] 7.0 10*3/uL 2.0-7.7 [facility] Neutrophils/100 WBC (Bld) 72.9 % 47-70 [facility] Potassium [Moles/Vol] 4.1 mmol/L 3.5-5.1 [facility] Sodium [Moles/Vol] 141 mmol/L 136-145 [facility] Triglyceride [Mass/Vol] 171 mg/dL <199 [facility] Comment on above: The drugs N-Acetylcy steine and Metamizole may falsely depress this assay.Serum Triglycerides Reference Interval Normal <150 mg/dL Borderline high 150 - 199 mg/dL High 200 - 499 mg/dL Very High > or = 500 mg/dL WBC (Bld) [#/Vol] 9.6 10*3/uL 4.4-11.0 [facility] Determination of erythrocyte mean corpuscular volume (MCV)Ordered By: Louis Koehler on 07-02-2023 MCV (RBC) [Entitic vol] 80.7 fL 80-94 [facility] Erythrocyte distribution wid th ratioOrdered By: Louis Koehler on 07-02-2023 Erythrocyte distribution width (RBC) [Ratio] 13.5 % 11.6-14.6 [facility] Erythrocyte distribution wid th standard deviationOrdered By: Louis Koehler on 07-02-2023 Erythrocyte distribution width (RBC) [Entitic vol] 39.6 fL 35.1-43.9 [facility] Hematocrit Auto (Bld) [Volum e fraction]Ordered By: Louis Koehler on 07-02-2023 Hematocrit (Bld) [Volume fraction] 27.2 % 40-54 [facility] Immature granulocytes/100 WB C Auto (Bld)Ordered By: Louis Koehler on 07-02-2023 Immature granulocytes/100 WBC (Bld) 0.400 % 0.0-0.9 [facility] Comment on above: IG% - Immature Granu locytes (promyelocytes, myelocytes and metamyelocytes) > 1% indicates that a LEFT SHIFT is Present. Laboratory - Chemistry and C hemistry - challengeOrdered By: Louis Koehler on 07-02-2023 Cholesterol in HDL [Mass/Vol] 58 mg/dL >40 [facility] Comment on above: The drugs N-Acetylcy steine and Metamizole may falsely depress this assay. Reference Range HDL <40 mg/dL Low HDL Cholesterol HDL >or= 60 mg/dL High HDL Cholesterol Cholesterol in LDL [Mass/Vol] 78 mg/dL 0-130 [facility] CO2 [Moles/Vol] 22.0 mmol/L 21.0-32.0 [facility] Urea nitrogen/Creatinine [Mass ratio] 11.1 mg/mg 10-20 [facility] Laboratory - Hematology and Cell countsOrdered By: Louis Koehler on 07-02-2023 MCH (RBC) [Entitic mass] 26.7 pg 27.0-32.0 [facility] MCHC (RBC) [Mass/Vol] 33.1 g/dL 32-36 [facility] Nucleated RBC/100 WBC (Bld) [Ratio] 0 % 0-5 [facility] Platelet mean volume (Bld) [Entitic vol] 9.0 fL 6.2-12.0 [facility] Platelets (Bld) [#/Vol] 293 10*3/uL 150-450 [facility] No Panel InformationOrdered By: Louis Koehler on 07-02-2023 Estimated Creatinine Clearance Calc 26.68 ml/min [facility] Estimated GFR (MDRD) Amer 19 mL/min >60 [facility] Comment on above: GFR Calc Estimated GFR (MDRD) Non-Af Amer 15 mL/min >60 [facility] Comment on above: Non- GFR Calc Troponin I High Sensitivity 49 pg/mL 3.0-78.0 [facility] Comment on above: Please Note: New Essence t Units and Gender Specific Reference Ranges. For more information see Policy Stat Procedure Mobile High Sensitivity Troponin (TNIH) and attachments. VLDL Cholesterol 34 mg/dL 5-40 [facility] RBC Auto (Bld) [#/Vol]Ordere d By: Louis Koehler on 07-02-2023 RBC (Bld) [#/Vol] 3.37 10*6/uL 4.6-6.2 [place] Serum or plasma calcium jessie urement (mass/volume)Ordered By: Louis Koehler on 07-02-2023 Calcium [Mass/Vol] 9.1 mg/dL 8.5-10.1 [facility] Serum or plasma creatinine m easurement (mass/volume)Ordered By: Louis Koehler on 07-02-2023 Creatinine [Mass/Vol] 4.50 mg/dL 0.70-1.30 [facility] Comment on above: The validity of the calculated GFR & GFRAA in patients over 70 years has not been determined. Clinical correlation is essential. Serum or plasma thyroid stim ulating hormone (TSH) measurement (units/volume)Ordered By: Louis Koehler on 07-02-2023 TSH Qn 3.33 uIU/mL 0.358-3.74 [facility] Serum or plasma urea nitroge n measurement (mass/volume)Ordered By: Louis Koehler on 07-02-2023 Urea nitrogen [Mass/Vol] 50 mg/dL 7-18 [facility] Thin prep Papanicolaou smear with manual screeningOrdered By: Louis Koehler on 07-02-2023 Thin prep Papanicolaou smear with manual screening 7 5-15 [facility] Absolute lymphocyte countOrd ered By: Laurie Elizalde on 07-01-2023 Lymphocytes Auto (Unsp spec) [#/Vol] 1.27 10*3/uL 0.83-4.51 [facility] Automated lymphocyte count a s percentage of total leukocytesOrdered By: Laurie Elizalde on 07-01-2023 Lymphocytes/100 WBC Auto (Unsp spec) 11.7 % 19-41 [facility] Basophil percentageOrdered B y: Louis Koehler on 07-01-2023 Basophil percentage 0 SEEN /hpf 0-5 [facility] Basophil percentageOrdered B y: Laurie Elizalde on 07-01-2023 Basophil percentage 4.2 mg/dL 2.5-4.9 [place] Basophils/100 WBC (Bld) 0.6 % 0-1 [facility] Chloride [Moles/Vol] 108 mmol/L 98-107 [facility] Eosinophils/100 WBC (Bld) 1.3 % 0-5 [facility] Glucose [Mass/Vol] 285 mg/dL 74-106 [facility] Comment on above: Glucose result great er than or equal to 200 mg/dLsuggests DIABETES MELLITUS per A.D.A. criteria. Hemoglobin (Bld) [Mass/Vol] 9.9 g/dL 13.0-16. 5 [facility] Monocytes/100 WBC (Bld) 8.3 % 0-10 [facility] Neutrophils (Bld) [#/Vol] 8.5 10*3/uL 2.0-7.7 [facility] Neutrophils/100 WBC (Bld) 77.8 % 47-70 [facility] Potassium [Moles/Vol] 4.8 mmol/L 3.5-5.1 [facility] Sodium [Moles/Vol] 135 mmol/L 136-145 [facility] WBC (Bld) [#/Vol] 10.9 10*3/uL 4.4-11.0 [place] Bilirubin Test strip Ql (U)O rdered By: Louis Koehler on 07-01-2023 Bilirubin Ql (U) Negative Negative [facility] Determination of erythrocyte mean corpuscular volume (MCV)Ordered By: Laurie Elizalde on 07-01-2023 MCV (RBC) [Entitic vol] 82.4 fL 80-94 [facility] Erythrocyte distribution wid th ratioOrdered By: Laurie Elizalde on 07-01-2023 Erythrocyte distribution width (RBC) [Ratio] 13.4 % 11.6-14.6 [facility] Erythrocyte distribution wid th standard deviationOrdered By: Laurie Elizalde on 07-01-2023 Erythrocyte distribution width (RBC) [Entitic vol] 40.4 fL 35.1-43.9 [facility] Hematocrit Auto (Bld) [Volum e fraction]Ordered By: Laurie Elizalde on 07-01-2023 Hematocrit (Bld) [Volume fraction] 30.0 % 40-54 [facility] Immature granulocytes/100 WB C Auto (Bld)Ordered By: Laurie Elizalde on 07-01-2023 Immature granulocytes/100 WBC (Bld) 0.300 % 0.0-0.9 [facility] Comment on above: IG% - Immature Granu locytes (promyelocytes, myelocytes and metamyelocytes) > 1% indicates that a LEFT SHIFT is Present. Ketones Test strip Ql (U)Ord ered By: Louis Koehler on 07-01-2023 Ketones Ql (U) Negative Negative [facility] Laboratory - Chemistry and C hemistry - challengeOrdered By: Laurie Elizalde on 07-01-2023 CO2 [Moles/Vol] 20.0 mmol/L 21.0-32.0 [facility] Magnesium [Mass/Vol] 2.1 mg/dL 1.6-2.6 [facility] Urea nitrogen/Creatinine [Mass ratio] 11.3 mg/mg 10-20 [facility] Laboratory - Hematology and Cell countsOrdered By: Laurie Elizalde on 07-01-2023 MCH (RBC) [Entitic mass] 27.2 pg 27.0-32.0 [facility] MCHC (RBC) [Mass/Vol] 33.0 g/dL 32-36 [facility] Nucleated RBC/100 WBC (Bld) [Ratio] 0 % 0-5 [facility] Platelet mean volume (Bld) [Entitic vol] 9.3 fL 6.2-12.0 [facility] Platelets (Bld) [#/Vol] 329 10*3/uL 150-450 [facility] Mucus LM Ql (Urine sed)Order ed By: Louis Koehler on 07-01-2023 Mucus Ql (Urine sed) 0 SEEN /hpf [facility] Nitrite Test strip Ql (U)Ord ered By: Louis Koehler on 07-01-2023 Nitrite Ql (U) Negative Negative [facility] No Panel InformationOrdered By: Louis Koehler on 07-01-2023 Urine RBC 0-5 SEEN /hpf 0-5 [facility] No Panel InformationOrdered By: Laurie Elizalde on 07-01-2023 Estimated Creatinine Clearance Calc 25.85 ml/min [facility] Estimated GFR (MDRD) Amer 18 mL/min >60 [facility] Comment on above: GFR Calc Estimated GFR (MDRD) Non-Af Amer 15 mL/min >60 [facility] Comment on above: Non- GFR Calc Troponin I High Sensitivity 44 pg/mL 3.0-78.0 [facility] Comment on above: Please Note: New Essence t Units and Gender Specific Reference Ranges. For more information see Policy Stat Procedure Mobile High Sensitivity Troponin (TNIH) and attachments. Protein Test strip Ql (U)Ord ered By: Louis Koehler on 07-01-2023 Protein Ql (U) 100 mg/dl Negative [facility] RBC Auto (Bld) [#/Vol]Ordere d By: Laurie Elizalde on 07-01-2023 RBC (Bld) [#/Vol] 3.64 10*6/uL 4.6-6.[address] [facility] Serum or plasma calcium jessie urement (mass/volume)Ordered By: Laurie Elizalde on 07-01-2023 Calcium [Mass/Vol] 9.2 mg/dL 8.5-10.[address] [facility] Serum or plasma creatinine m easurement (mass/volume)Ordered By: Laurie Elizalde on 07-01-2023 Creatinine [Mass/Vol] 4.68 mg/dL 0.70-1.30 [facility] Comment on above: The validity of the calculated GFR & GFRAA in patients over 70 years has not been determined. Clinical correlation is essential. Serum or plasma urea nitroge n measurement (mass/volume)Ordered By: Laurie Elizalde on 07-01-2023 Urea nitrogen [Mass/Vol] 53 mg/dL 7-18 [facility] Squamous epithelial cells de tection in urine sediment by light microscopyOrdered By: Louis Koehler on 07-01-2023 Epithelial cells.squamous LM Ql (Urine sed) 0 SEEN /hpf 0-5 [facility] Thin prep Papanicolaou smear with manual screeningOrdered By: Laurie Elizalde on 07-01-2023 Thin prep Papanicolaou smear with manual screening 7 5-15 [facility] Urine blood detectionOrdered By: Louis Koehler on 07-01-2023 RBC Ql (U) 25 /ul Negative [facility] Urine clarityOrdered By: Cindy Koehler on 07-01-2023 Clarity (U) Clear Clear [facility] Urine color determinationOrd ered By: Louis Koehler on 07-01-2023 Color (U) Straw Yellow [facility] Urine glucose detectionOrder ed By: Louis Koehler on 07-01-2023 Glucose Ql (U) Normal mg/dl Normal [facility] Urine leukocyte esterase det ection by dipstickOrdered By: Louis Koehler on 07-01-2023 Leukocyte esterase Test strip Ql (U) Negative Negative [facility] Urine pHOrdered By: Louis Koehler on 07-01-2023 pH (U) 6.0 [pH] 5.0 - 8.0 [facility] Urine sediment bacteria coun t by microscopy (number/high power field)Ordered By: Louis Koehler on 07-01-2023 Bacteria LM.HPF (Urine sed) [#/Area] 0 /[HPF] None Seen [facility] Urine specific gravity measu rementOrdered By: Louis Keohler on 07-01-2023 Specific gravity (U) [Rel density] 1.010 1.002-1.030 [facility] Urine urobilinogen measureme ntOrdered By: Louis Koehler on 07-01-2023 Urobilinogen Ql (U) Normal mg/dl Normal [facility] Albumin Elph [Mass/Vol]Order ed By: Daisy Diaz on 06-27-2023 Albumin [Mass/Vol] 3.1 g/dL 2.9-4.4 [facility] Atypical P-ANCA titerOrdered By: Daisy Diaz on 06-27-2023 Neutrophil cytoplasmic Ab.perinuclear.atypical IF (S) [Titer] <1:20 titer Neg:<1:20 [facility] Comment on above: The atypical pANCA p attern has been observed in asignificant percentage of patients with ulcerative colitis,primary sclerosing cholangitis and autoimmune hepatitis.Performed at: [employer] [id number] Director: Dhruv Lujan PhD, Phone: [phone] Basophil percentageOrdered B y: Daisy Diaz on 06-27-2023 Basophil percentage 0-5 SEEN /hpf 0-5 [facility] Basophil percentage 4.5 mg/dL 2.5-4.9 [place] Chloride [Moles/Vol] 115 mmol/L 98-107 [facility] Glucose [Mass/Vol] 62 mg/dL 74-106 [facility] Hemoglobin (Bld) [Mass/Vol] 10.2 g/dL 13.0-16. 5 [facility] Potassium [Moles/Vol] 4.7 mmol/L 3.5-5.1 [facility] Sodium [Moles/Vol] 141 mmol/L 136-145 [facility] WBC (Bld) [#/Vol] 8.9 10*3/uL 4.4-11.0 [facility] Bilirubin Test strip Ql (U)O rdered By: Daisy Diaz on 06-27-2023 Bilirubin Ql (U) Negative Negative [facility] Determination of erythrocyte mean corpuscular volume (MCV)Ordered By: Daisy Diaz on 06-27-2023 MCV (RBC) [Entitic vol] 82.1 fL 80-94 [facility] Erythrocyte distribution wid th ratioOrdered By: Daisy Diaz on 06-27-2023 Erythrocyte distribution width (RBC) [Ratio] 13.5 % 11.6-14.6 [facility] Erythrocyte distribution wid th standard deviationOrdered By: Daisy Diaz on 06-27-2023 Erythrocyte distribution width (RBC) [Entitic vol] 40.1 fL 35.1-43.9 [facility] Hematocrit Auto (Bld) [Volum e fraction]Ordered By: Daisy Diaz on 06-27-2023 Hematocrit (Bld) [Volume fraction] 31.1 % 40-54 [facility] Ketones Test strip Ql (U)Ord ered By: Daisy Diaz on 06-27-2023 Ketones Ql (U) Negative Negative [facility] Laboratory - Chemistry and C hemistry - challengeOrdered By: Daisy Diaz on 06-27-2023 CO2 [Moles/Vol] 21.0 mmol/L 21.0-32.0 [facility] Urea nitrogen/Creatinine [Mass ratio] 8.5 mg/mg 10-20 [facility] Laboratory - Hematology and Cell countsOrdered By: Daisy Diaz on 06-27-2023 MCH (RBC) [Entitic mass] 26.9 pg 27.0-32.0 [facility] MCHC (RBC) [Mass/Vol] 32.8 g/dL 32-36 [facility] Platelet mean volume (Bld) [Entitic vol] 9.0 fL 6.2-12.0 [facility] Platelets (Bld) [#/Vol] 325 10*3/uL 150-450 [facility] Mucus LM Ql (Urine sed)Order ed By: Daisy Diaz on 06-27-2023 Mucus Ql (Urine sed) 0 SEEN /hpf [facility] Nitrite Test strip Ql (U)Ord ered By: Daisy Diaz on 06-27-2023 Nitrite Ql (U) Negative Negative [facility] No Panel InformationOrdered By: Daisy Diaz on 06-27-2023 Addendum Document Comment . [facility] Comment on above: The SPE pattern demo nstrates elevation of regionscontaining acute phase proteins suggesting anacute/subacute inflammatory response. Some conditions inwhich this pattern has been observed include: bacterial,viral or parasitic infection; mechanical, physical orchemical trauma; and cardiac failure. The gamma globulinregion is unremarkable and evidence of monoclonal proteinis not apparent. Brzdf-5-Jpezcswyn 0.3 g/dL 0.0-0.4 [facility] Bezcy-8-Hmgomzhet 1.2 g/dL 0.4-1.0 [facility] Estimated GFR (MDRD) Amer 19 mL/min >60 [facility] Comment on above: GFR Calc Estimated GFR (MDRD) Non-Af Amer 16 mL/min >60 [facility] Comment on above: Non- GFR Calc Gamma Globulins 0.6 g/dL 0.4-1.8 [facility] Parathyroid Hormone (Intact) 232.1 pg/mL 18.4-80.1 [facility] Urine RBC 0 SEEN /hpf 0-5 [facility] Vitamin D 25-Hydroxy 24.2 ng/mL [facility] Comment on above: Vitamin D 25(OH) Sta tus Range Deficiency <20 ng/mL (50nmol/L) Insufficiency 20 - 30 ng/mL (50 - 75 nmol/L) Sufficiency 30 - 100 ng/mL (75 - 250 nmol/L) Toxicity >100 ng/mL (>250 nmol/L) Protein Fractions Elph [Inte rp]Ordered By: Daisy Diaz on 06-27-2023 Protein Fractions [Interp] Comment . [facility] Comment on above: Protein electrophore sis scan will follow via computer,mail, or application specialist delivery. Protein Test strip Ql (U)Ord ered By: Daisy Diaz on 06-27-2023 Protein Ql (U) 500 mg/dl Negative [facility] RBC Auto (Bld) [#/Vol]Ordere d By: Daisy Diaz on 06-27-2023 RBC (Bld) [#/Vol] 3.79 10*6/uL 4.6-6.2 [place] Serum DNA double strand anti body assay (units/volume)Ordered By: Daisy Diaz on 06-27-2023 DNA double strand Ab Qn (S) 1 [IU]/mL 0-9 [facility] Comment on above: Negative <5 Equivoca l 5 - 9 Positive >9Performed at: - [facility] [id number], [place] [id number] Director: Dhruv Lujan PhD, Phone: [phone] Serum albumin to globulin ra brayan by protein electrophoresisOrdered By: Daisy Diaz on 06-27-2023 Albumin/Globulin Elph [Mass ratio] 1.1 0.7-1.7 [facility] Serum classic neutrophil cyt oplasmic antibody assay (units/volume)Ordered By: Daisy Daiz on 06-27-2023 Neutrophil cytoplasmic Ab.classic Qn (S) <1:20 titer Neg:<1:20 [facility] Serum globulin measurement ( mass/volume)Ordered By: Daisy Diaz on 06-27-2023 Globulin (S) [Mass/Vol] 2.9 g/dL 2.2-3.9 [facility] Serum or plasma beta globuli n measurement by electrophoresis (mass/volume)Ordered By: Daisy Diaz on 06-27-2023 Beta globulin Elph [Mass/Vol] 0.8 g/dL 0.7-1.3 [facility] Serum or plasma calcium jessie urement (mass/volume)Ordered By: Dasiy Diaz on 06-27-2023 Calcium [Mass/Vol] 9.4 mg/dL 8.5-10.1 [facility] Serum or plasma creatinine m easurement (mass/volume)Ordered By: Daisy Diaz on 06-27-2023 Creatinine [Mass/Vol] 4.35 mg/dL 0.70-1.30 [facility] Comment on above: The validity of the calculated GFR & GFRAA in patients over 70 years has not been determined. Clinical correlation is essential. Serum or plasma protein mono clonal measurement by electrophoresis (mass/volume)Ordered By: Daisy Diaz on 06-27-2023 Protein.monoclonal Elph [Mass/Vol] Not Observed g/dL Not Observed [facility] Serum or plasma urea nitroge n measurement (mass/volume)Ordered By: Daisy Diaz on 06-27-2023 Urea nitrogen [Mass/Vol] 37 mg/dL 7-18 [facility] Serum perinuclear neutrophil cytoplasmic antibody titer by immunofluorescenceOrdered By: Daisy Diaz on 06-27-2023 Neutrophil cytoplasmic Ab.perinuclear IF (S) [Titer] <1:20 titer Neg:<1:20 [facility] Comment on above: The presence of posi tive fluorescence exhibiting P-ANCA orC-ANCA patterns alone is not specific for the diagnosis ofWegener's Granulomatosis (WG) or microscopic polyangiitis.Decisions about treatment should not be based solely onANCA IFA results. The [employer] Consensusrecommends follow up testing of positive sera with both MA-3 and MPO-ANCA enzyme immunoassays. As many as 5% serumsamples are positive only by EIA. Ref. AM J Clin [id number];[id number]. Squamous epithelial cells de tection in urine sediment by light microscopyOrdered By: Daisy Diaz on 06-27-2023 Epithelial cells.squamous LM Ql (Urine sed) 0-5 SEEN /hpf 0-5 [facility] Thin prep Papanicolaou smear with manual screeningOrdered By: Daisy Diaz on 06-27-2023 Thin prep Papanicolaou smear with manual screening 3.0 g/dL 3.2-5.0 [facility] Total protein bloodOrdered B y: Daisy Diaz on 06-27-2023 Protein [Mass/Vol] 6.0 g/dL 6.0-8.5 [facility] Urine blood detectionOrdered By: Daisy Diaz on 06-27-2023 RBC Ql (U) 25 /ul Negative [facility] Urine clarityOrdered By: Mann Diaz on 06-27-2023 Clarity (U) Clear Clear [facility] Urine color determinationOrd ered By: Daisy Diaz on 06-27-2023 Color (U) Straw Yellow [facility] Urine glucose detectionOrder ed By: Daisy iDaz on 06-27-2023 Glucose Ql (U) 100 mg/dl Normal [facility] Urine leukocyte esterase det ection by dipstickOrdered By: Daisy Diaz on 06-27-2023 Leukocyte esterase Test strip Ql (U) Negative Negative [facility] Urine pHOrdered By: Mamta Diaz on 06-27-2023 pH (U) 6.0 [pH] 5.0 - 8.0 [facility] Urine sediment bacteria coun t by microscopy (number/high power field)Ordered By: Daisy Diaz on 06-27-2023 Bacteria LM.HPF (Urine sed) [#/Area] 0 /[HPF] None Seen [facility] Urine specific gravity measu rementOrdered By: Daisy Diaz on 06-27-2023 Specific gravity (U) [Rel density] 1.015 1.002-1.030 [facility] Urine urobilinogen measureme ntOrdered By: Daisy Diaz on 06-27-2023 Urobilinogen Ql (U) Normal mg/dl Normal [facility] Basophil percentageOrdered B y: Kendra Pierce on 05-16-2023 Bilirubin [Mass/Vol] 0.60 mg/dL 0.20-1.00 [facility] Comment on above: For patients on eltr ombopag therapy, use of [employer] TBIL is not recommended. Chloride [Moles/Vol] 110 mmol/L 98-107 [facility] Glucose [Mass/Vol] 90 mg/dL 74-106 [facility] Potassium [Moles/Vol] 4.7 mmol/L 3.5-5.1 [facility] Protein [Mass/Vol] 6.5 g/dL 6.4-8.2 [facility] Sodium [Moles/Vol] 139 mmol/L 136-145 [facility] Laboratory - Chemistry and C hemistry - challengeOrdered By: Kendra Pierce on 05-16-2023 Albumin/Globulin [Mass ratio] 0.7 {ratio} 0.9-2.4 [facility] ALP [Catalytic activity/Vol] 83 U/L 45-117 [facility] ALT [Catalytic activity/Vol] 27 U/L 16-61 [facility] CO2 [Moles/Vol] 26.0 mmol/L 21.0-32.0 [facility] Globulin (S) [Mass/Vol] 3.8 g/dL 2.2-4.2 [facility] Urea nitrogen/Creatinine [Mass ratio] 10.4 mg/mg 10-20 [facility] No Panel InformationOrdered By: Kendra Pierce on 05-16-2023 Estimated GFR (MDRD) Amer 21 mL/min >60 [facility] Comment on above: GFR Calc Estimated GFR (MDRD) Non-Af Amer 17 mL/min >60 [facility] Comment on above: Non- GFR Calc Serum or plasma calcium jessie urement (mass/volume)Ordered By: Kendra Pierce on 05-16-2023 Calcium [Mass/Vol] 9.1 mg/dL 8.5-10.1 [facility] Serum or plasma creatinine m easurement (mass/volume)Ordered By: Kendra Pierce on 05-16-2023 Creatinine [Mass/Vol] 4.05 mg/dL 0.70-1.30 [facility] Comment on above: The validity of the calculated GFR & GFRAA in patients over 70 years has not been determined. Clinical correlation is essential. Serum or plasma urea nitroge n measurement (mass/volume)Ordered By: Kendra Pierce on 05-16-2023 Urea nitrogen [Mass/Vol] 42 mg/dL 7-18 [facility] Thin prep Papanicolaou smear with manual screeningOrdered By: Kendra Pierce on 05-16-2023 Thin prep Papanicolaou smear with manual screening 2.7 g/dL 3.2-5.0 [facility] Thin prep Papanicolaou smear with manual screening 22 U/L 15-37 [facility] Thin prep Papanicolaou smear with manual screening 3 5-15 [facility] Whole blood hemoglobin A1c/t otal hemoglobin ratio (mass fraction)Ordered By: Kendra Pierce on 05-16-2023 HbA1c (Bld) [Mass fraction] 7.9 % 3.8-5.6 [facility] Comment on above: Normal < 5.7 % Predi abetic 5.7 - 6.4 % Diabetic >or= 6.5 % Please note range changes. Laboratory - Hematology and Cell countson 05-14-2023 HbA1c (Bld) [Mass fraction] 8.5 % 4.2-6.3 [facility] CBC W Auto Differential pane l (Bld)on 04-26-2022 Basophils (Bld) [#/Vol] 0.06 10*3/uL <0.11 k/uL [facility] Basophils/100 WBC (Bld) 0.8 % [facility] Differential cell count method Nom (Bld) Auto [facility] Eosinophils (Bld) [#/Vol] 0.12 10*3/uL <0.46 k/ uL [facility] Eosinophils/100 WBC (Bld) 1.7 % [facility] Erythrocyte distribution width (RBC) [Ratio] 13.2 % 11.5 - 15.0 % [facility] Hematocrit (Bld) [Volume fraction] 35.7 % Low 39.0 - 51.0 % [facility] Hemoglobin (Bld) [Mass/Vol] 11.9 g/dL Low 13.0 - 17.0 g/dL [facility] Immature granulocytes (Bld) [#/Vol] 0.03 10*3/uL <0.10 k/uL [facility] Immature granulocytes/100 WBC (Bld) 0.4 % [facility] Lymphocytes (Bld) [#/Vol] 1.77 10*3/uL 1. 00 - 4.00 k/uL [facility] Lymphocytes/100 WBC (Bld) 24.5 % [facility] MCH (RBC) [Entitic mass] 27.9 pg 26. 0 - 34.0 pg [facility] MCHC (RBC) [Mass/Vol] 33.3 g/dL 30.5 - 36.0 g/dL [facility] MCV (RBC) [Entitic vol] 83.6 fL 80.0 - 100.0 fL [facility] Monocytes (Bld) [#/Vol] 0.62 10*3/uL <0.87 k/uL [facility] Monocytes/100 WBC (Bld) 8.6 % [facility] Neutrophils (Bld) [#/Vol] 4.63 10*3/uL 1. 45 - 7.50 k/uL [facility] Neutrophils/100 WBC (Bld) 64.0 % [facility] Nucleated RBC (Bld) [#/Vol] <0.01 k/ uL [facility] Nucleated RBC/100 WBC (Bld) [Ratio] 0.0 /100 WBC [facility] Platelet mean volume (Bld) [Entitic vol] 9.4 fL 9.0 - 12.7 fL [facility] Platelets (Bld) [#/Vol] 316 10*3/uL 150 - 400 k/uL [facility] RBC (Bld) [#/Vol] 4.27 10*6/uL 4.20 - 6.0 0 m/uL [facility] WBC (Bld) [#/Vol] 7.23 10*3/uL 3.70 - 11. 00 k/uL [facility] HEMOGLOBIN A1C (POC)on 04-26 HbA1c (Bld) [Mass fraction] 7.2 % Abnormal 4.2 - 5. 6 % [facility] Absolute lymphocyte counton 11-02-2021 Lymphocytes Auto (Unsp spec) [#/Vol] 1.09 10*3/uL 0.83-4.51 [facility] Work Phone: Basophil percentageon 2021 Basophil percentage 0 SEEN /hpf 0-5 [facility] Work Phone: Basophils/100 WBC (Bld) 0.4 % 0-1 [facility] Work Phone: Bilirubin [Mass/Vol] 0.30 mg/dL 0.20-1.00 [facility] Work Phone: Comment on above: For patients on eltr ombopag therapy, use of [employer] TBIL is not recommended. Chloride [Moles/Vol] 108 mmol/L 98-107 [facility] Work Phone: Eosinophils/100 WBC (Bld) 3.3 % 0-5 [facility] Work Phone: Glucose [Mass/Vol] 98 mg/dL 74-106 [facility] Work Phone: Neutrophils (Bld) [#/Vol] 3.2 10*3/uL 2.0-7.7 [facility] Work Phone: Neutrophils/100 WBC (Bld) 61.6 % 47-70 [facility] Work Phone: Potassium [Moles/Vol] 4.1 mmol/L 3.5-5.1 [facility] Work Phone: Protein [Mass/Vol] 6.6 g/dL 6.4-8.2 [facility] Work Phone: Sodium [Moles/Vol] 138 mmol/L 136-145 [facility] Work Phone: WBC (Bld) [#/Vol] 5.1 10*3/uL 4.4-11.0 [facility] Work Phone: Bilirubin Test strip Ql (U)o n 11-02-2021 Bilirubin Ql (U) Negative Negative [facility] Work Phone: Blood erythrocytes count (nu mber/volume)on 11-02-2021 RBC (Bld) [#/Vol] 4.24 10*6/uL 4.6-6.2 [place] Work Phone: Blood hemoglobin measurement (mass/volume)on 11-02-2021 Hemoglobin (Bld) [Mass/Vol] 11.5 g/dL 13.0-16. 5 [facility] Work Phone: Blood lymphocytes/100 leukoc yteson 11-02-2021 Lymphocytes/100 WBC (Bld) 21.2 % 19-41 [facility] Work Phone: Blood monocytes/100 leukocyt eson 11-02-2021 Monocytes/100 WBC (Bld) 13.1 % 0-10 [facility] Work Phone: Blood platelet mean volumeon 11-02-2021 Platelet mean volume (Bld) [Entitic vol] 9.1 fL 6.2-12.0 [facility] Work Phone: [phone] Determination of erythrocyte mean corpuscular volume (MCV)on 11-02-2021 MCV (RBC) [Entitic vol] 84.4 fL 80-94 [facility] Work Phone: Hematocrit Auto (Bld) [Volum e fraction]on 11-02-2021 Hematocrit (Bld) [Volume fraction] 35.8 % 40-54 [facility] Work Phone: Ketones Test strip Ql (U)on 11-02-2021 Ketones Ql (U) Negative Negative [facility] Work Phone: Laboratory - Chemistry and C hemistry - challengeon 11-02-2021 ALP [Catalytic activity/Vol] 66 U/L 45-117 [facility] Work Phone: ALT [Catalytic activity/Vol] 28 U/L 16-61 [facility] Work Phone: CO2 [Moles/Vol] 27.0 mmol/L 21.0-32.0 [facility] Work Phone: Globulin (S) [Mass/Vol] 3.6 g/dL 2.2-4.2 [facility] Work Phone: Urea nitrogen/Creatinine [Mass ratio] 14.3 mg/mg 10-20 [facility] Work Phone: Laboratory - Hematology and Cell countson 11-02-2021 Erythrocyte distribution width (RBC) [Entitic vol] 40.1 fL 35.1-43.9 [facility] Work Phone: Erythrocyte distribution width (RBC) [Ratio] 13.1 % 11.6-14.6 [facility] Work Phone: Immature granulocytes/100 WBC (Bld) 0.400 % 0.0-0.9 [facility] Work Phone: Comment on above: IG% - Immature Granu locytes (promyelocytes, myelocytes and metamyelocytes) > 1% indicates that a LEFT SHIFT is Present. MCH (RBC) [Entitic mass] 27.1 pg 27.0-32.0 [facility] Work Phone: Nucleated RBC/100 WBC (Bld) [Ratio] 0 % 0-5 [facility] Work Phone: MCHC Auto (RBC) [Mass/Vol]on 11-02-2021 MCHC (RBC) [Mass/Vol] 32.1 g/dL 32-36 [facility] Work Phone: Mucus LM Ql (Urine sed)on Mucus Ql (Urine sed) 0 SEEN /hpf [facility] Work Phone: Nitrite Test strip Ql (U)on 11-02-2021 Nitrite Ql (U) Negative Negative [facility] Work Phone: No Panel Informationon 11-02 Estimated Creatinine Clearance Calc 55.89 ml/min [facility] Work Phone: Estimated GFR (MDRD) Amer 51 mL/min >60 [facility] Work Phone: Comment on above: GFR Calc Estimated GFR (MDRD) Non-Af Amer 42 mL/min >60 [facility] Work Phone: Comment on above: Non- GFR Calc Platelets bldon 11-02-2021 Platelets (Bld) [#/Vol] 291 10*3/uL 150-450 [facility] Work Phone: Protein Test strip Ql (U)on 11-02-2021 Protein Ql (U) 500 mg/dl Negative [facility] Work Phone: Serum or plasma albumin jessie urement (mass/volume)on 11-02-2021 Albumin [Mass/Vol] 3.0 g/dL 3.2-5.0 [facility] Work Phone: Serum or plasma albumin/glob ulin mass ratioon 11-02-2021 Albumin/Globulin [Mass ratio] 0.8 {ratio} 0.9-2.4 [facility] Work Phone: Serum or plasma calcium jessie urement (mass/volume)on 11-02-2021 Calcium [Mass/Vol] 8.9 mg/dL 8.5-10.1 [facility] Work Phone: Serum or plasma creatinine m easurement (mass/volume)on 11-02-2021 Creatinine [Mass/Vol] 1.89 mg/dL 0.70-1.30 [facility] Work Phone: Comment on above: The validity of the calculated GFR & GFRAA in patients over 70 years has not been determined. Clinical correlation is essential. Serum or plasma urea nitroge n measurement (mass/volume)on 11-02-2021 Urea nitrogen [Mass/Vol] 27 mg/dL 7-18 [facility] Work Phone: Squamous epithelial cells de tection in urine sediment by light microscopyon 11-02-2021 Epithelial cells.squamous LM Ql (Urine sed) 0-5 SEEN /hpf 0-5 [facility] Work Phone: Thin prep Papanicolaou smear with manual screeningon 11-02-2021 Thin prep Papanicolaou smear with manual screening 25 U/L 15-37 [facility] Work Phone: Thin prep Papanicolaou smear with manual screening 3 5-15 [facility] Work Phone: Urine blood detectionon RBC Ql (U) 25 /ul Negative [facility] Work Phone: RBC Ql (U) 0-5 SEEN /hpf 0-5 [facility] Work Phone: Urine clarityon 11-02-2021 Clarity (U) Clear Clear [facility] Work Phone: Urine color determinationon 11-02-2021 Color (U) Yellow Yellow [facility] Work Phone: Urine glucose detectionon Glucose Ql (U) 50 mg/dl Normal [facility] Work Phone: Urine leukocyte esterase det ection by dipstickon 11-02-2021 Leukocyte esterase Test strip Ql (U) Negative Negative [facility] Work Phone: Urine pHon 11-02-2021 pH (U) 6.0 [pH] 5.0 - 8.0 [facility] Work Phone: Urine sediment bacteria coun t by microscopy (number/high power field)on 11-02-2021 Bacteria LM.HPF (Urine sed) [#/Area] RARE /hpf None Seen [facility] Work Phone: Urine specific gravity measu rementon 08-05-2022 Specific gravity (U) [Rel density] 1.020 1.002-1.030 [facility] Work Phone: Urobilinogen Auto test strip Ql (U)on 11-02-2021 Urobilinogen Ql (U) Normal mg/dl Normal [facility] Work Phone: Laboratory - Hematology and Cell countson 10-08-2021 HbA1c (Bld) [Mass fraction] 8.2 % [facility] Work Phone: Basophil percentageon 2021 Bilirubin [Mass/Vol] 0.20 mg/dL 0.20-1.00 [facility] Work Phone: Comment on above: For patients on eltr ombopag therapy, use of [employer] TBIL is not recommended. Chloride [Moles/Vol] 103 mmol/L 98-107 [facility] Work Phone: Cholesterol [Mass/Vol] 359 mg/dL <200 [facility] Work Phone: Comment on above: <200 mg/dL Desirable 200-240 mg/dL Borderline >240 mg/dL High Risk Glucose [Mass/Vol] 134 mg/dL 74-106 [facility] Work Phone: Comment on above: Fasting Glucose resu lt greater than or equal to 126 mg/dL suggests DIABETES MELLITUS per A.D.A. criteria. Potassium [Moles/Vol] 4.6 mmol/L 3.5-5.1 [facility] Work Phone: Protein [Mass/Vol] 7.2 g/dL 6.4-8.2 [facility] Work Phone: Sodium [Moles/Vol] 137 mmol/L 136-145 [facility] Work Phone: Triglyceride [Mass/Vol] 124 mg/dL [facility] Work Phone: Comment on above: The drugs N-Acetylcy steine and Metamizole may falsely depress this assay.Serum Triglycerides Reference Interval Normal <150 mg/dL Borderline high 150 - 199 mg/dL High 200 - 499 mg/dL Very High > or = 500 mg/dL Laboratory - Chemistry and C hemistry - challengeon 07-02-2021 ALP [Catalytic activity/Vol] 79 U/L 45-117 [facility] Work Phone: ALT [Catalytic activity/Vol] 25 U/L 16-61 [facility] Work Phone: CO2 [Moles/Vol] 27.0 mmol/L 21.0-32.0 [facility] Work Phone: Globulin (S) [Mass/Vol] 4.0 g/dL 2.2-4.2 [facility] Work Phone: Urea nitrogen/Creatinine [Mass ratio] 13.3 mg/mg 10-20 [facility] Work Phone: No Panel Informationon 07-02 Estimated GFR (MDRD) Amer 60 mL/min >60 [facility] Work Phone: Comment on above: GFR Calc Estimated GFR (MDRD) Non-Af Amer 50 mL/min >60 [facility] Work Phone: Comment on above: Non- GFR Calc Thyroid Stimulating Hormone (TSH) 1.98 uIU/mL 0.358-3.74 [facility] Work Phone: Urine Microalbumin/Creatinine Ratio 2359.8 mg/g CRE <30 [facility] Work Phone: Vitamin D 25-Hydroxy 18.8 ng/mL [facility] Work Phone: Comment on above: Vitamin D 25(OH) Sta tus Range Deficiency <20 ng/mL (50nmol/L) Insufficiency 20 - 30 ng/mL (50 - 75 nmol/L) Sufficiency 30 - 100 ng/mL (75 - 250 nmol/L) Toxicity >100 ng/mL (>250 nmol/L) Serum or plasma albumin jessie urement (mass/volume)on 07-02-2021 Albumin [Mass/Vol] 3.2 g/dL 3.2-5.0 [facility] Work Phone: Serum or plasma albumin/glob ulin mass ratioon 07-02-2021 Albumin/Globulin [Mass ratio] 0.8 {ratio} 0.9-2.4 [facility] Work Phone: Serum or plasma calcium jessie urement (mass/volume)on 07-02-2021 Calcium [Mass/Vol] 9.0 mg/dL 8.5-10.1 [facility] Work Phone: Serum or plasma cholesterol in HDL measurement (mass/volume)on 07-02-2021 Cholesterol in HDL [Mass/Vol] 62 mg/dL [facility] Work Phone: Comment on above: The drugs N-Acetylcy steine and Metamizole may falsely depress this assay. Reference Range HDL <40 mg/dL Low HDL Cholesterol HDL >or= 60 mg/dL High HDL Cholesterol Serum or plasma cholesterol in VLDL measurement (mass/volume)on 07-02-2021 Cholesterol in VLDL [Mass/Vol] 25 mg/dL 5-40 [facility] Work Phone: Serum or plasma creatinine m easurement (mass/volume)on 07-02-2021 Creatinine [Mass/Vol] 1.65 mg/dL 0.70-1.30 [facility] Work Phone: Comment on above: The validity of the calculated GFR & GFRAA in patients over 70 years has not been determined. Clinical correlation is essential. Serum or plasma low density lipoprotein (LDL) cholesterol measurement (mass/volume)on 07-02-2021 Cholesterol in LDL [Mass/Vol] 272 mg/dL 0-130 [facility] Work Phone: Serum or plasma urea nitroge n measurement (mass/volume)on 07-02-2021 Urea nitrogen [Mass/Vol] 22 mg/dL 7-18 [facility] Work Phone: Thin prep Papanicolaou smear with manual screeningon 07-02-2021 Thin prep Papanicolaou smear with manual screening 18 U/L 15-37 [facility] Work Phone: Thin prep Papanicolaou smear with manual screening 7 5-15 [facility] Work Phone: Thin prep Papanicolaou smear with manual screening 3870.0 mg/L NO RANGE EST. [facility] Work Phone: Urine creatinine measurement (mass/volume)on 07-02-2021 Creatinine (U) [Mass/Vol] 164.00 mg/dL NO RANGE EST. [facility] Work Phone: Laboratory - Hematology and Cell countson 06-04-2021 HbA1c (Bld) [Mass fraction] 8.1 % [facility] Work Phone: XR Foot - right AP and Later al and obliqueon 02-04-2020 IMPRESSION: Acute, mildly impacted fracture of the fifth proximal phalanx. 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 DIVISION OF RADIOLOGY Provider, [facility] [place] - 02/04/2020 * * *Final Report* * [...] impacted fracture of the fifth proximal phalanx. 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 Driver: NEW Transcribe Date/Time: Feb 04 2020 4:20P Dictated by : OLEG VASQUEZ MD This examination was interpreted and the report reviewed and electronically signed by: OLEG VASQUEZ MD on Feb 04 2020 4:22PM EST [facility] Radiology Study observation (narrative) [facility] XR Foot - right AP and Later al and obliqueOrdered By: [facility] Provider on 02-04-2020 [facility] Vital Signs Date Time Vital Sign Value Performing Clinician Facility 10-26-2024 09:36-0400 Body height 180 cm [facility] Work Phone: [facility] 10-26-2024 09:36-0400 Body mass index (BMI) [Ratio] 26.76 kg/m2 [facility] Work Phone: [facility] 10-26-2024 09:36-0400 Body temperature 97.39 [degF] [facility] Work Phone: [facility] 10-26-2024 09:36-0400 Body weight 86.7 kg [facility] Work Phone: [facility] 10-26-2024 09:36-0400 Diastolic blood pressure 58 mm[Hg] [facility] Work Phone: [facility] 10-26-2024 09:36-0400 Heart rate 73 /min [facility] Work Phone: [facility] 10-26-2024 09:36-0400 SaO2% (BldA) [Mass fraction] 100 % [facility] Work Phone: [facility] 10-26-2024 09:36-0400 Systolic blood pressure 93 mm[Hg] [facility] Work Phone: [facility] 10-22-2024 14:52-0400 Body mass index (BMI) [Ratio] 24 kg/m2 Dr. Kristal Sullivan MD Work Phone: 0(485)537-744498 [place] [address] 10-22-2024 14:52-0400 Body weight 78.[address] Kristal Sullivan MD Work Phone: 3(472)594-693398 [place] [address] 10-22-2024 12:44-0400 Diastolic blood pressure 64 mm[Hg] Dr. Kristal Sullivan MD Work Phone: 0(128)476-440798 [place] [address] 10-22-2024 12:44-0400 Heart rate 73 /min Dr. Kristal Sullivan MD Work Phone: 2(965)046-112998 [place] [address] 10-22-2024 12:44-0400 Respiratory rate 16 /min Dr. Kristal Sullivan MD Work Phone: 5(626)357-927298 [place] [address] 10-22-2024 12:44-0400 SaO2% (BldA) [Mass fraction] 100 % Dr. Kristal Sullivan MD Work Phone: 7(713)058-529698 [place] [address] 10-22-2024 12:44-0400 Systolic blood pressure 120 mm[Hg] Dr. Kristal Sullivan MD Work Phone: 8(727)418-655798 [place] [address] 10-22-2024 09:00-0400 Body temperature 98.1 [degF] Dr. Kristal Sullivan MD Work Phone: 0(422)080-641198 [place] [address] 10-22-2024 01:05-0400 Inhaled oxygen flow rate 2 L/min Dr. Kristal Sullivan MD Work Phone: 7(247)659-027998 [place] [address] 10-20-2024 06:40-0400 Inhaled oxygen concentration 61 % Dr. Kristal Sullivan MD Work Phone: 2(172)920-477898 [place] [address] 10-19-2024 14:39-0400 Body height 180.[address] Kristal Sullivan MD Work Phone: 8(334)185-429098 [place] [address] 10-19-2024 03:16-0400 Body temperature 100.1 [degF] Dr. Kristal Sullivan MD Work Phone: 7(807)874-970998 [place] [address] 10-19-2024 03:16-0400 Diastolic blood pressure 56 mm[Hg] Dr. Kristal Sullivan MD Work Phone: 1(190)633-248398 [place] [address] 10-19-2024 03:16-0400 Heart rate 98 /min Dr. Kristal Sullivan MD Work Phone: 2(970)197-746198 [place] [address] 10-19-2024 03:16-0400 Inhaled oxygen flow rate 2 L/min Dr. Kristal Sullivan MD Work Phone: 9(308)766-157198 [place] [address] 10-19-2024 03:16-0400 Respiratory rate 21 /min Dr. Kristal Sullivan MD Work Phone: 7(154)522-973798 [place] [address] 10-19-2024 03:16-0400 SaO2% (BldA) [Mass fraction] 94 % Dr. Kristal Sullivan MD Work Phone: 1(982)394-496498 [place] [address] 10-19-2024 03:16-0400 Systolic blood pressure 99 mm[Hg] Dr. Kristal Sullivan MD Work Phone: 1(376)352-548098 [place] [address] 10-19-2024 01:31-0400 Body height 180.[address] Kristal Sullivan MD Work Phone: 5(248)020-296798 [place] [address] 10-19-2024 01:31-0400 Body mass index (BMI) [Ratio] 28.8 kg/m2 Dr. Kristal Sullivan MD Work Phone: 4(816)768-298698 [place] [address] 10-19-2024 01:31-0400 Body weight 93.[address] Kristal Sullivan MD Work Phone: 3(479)888-982598 [place] [address] 09-21-2024 11:45-0400 Body mass index (BMI) [Ratio] 27.61 kg/m2 Kristal Sullivan MD Work Phone: 3(910)598-962475 [place] [address] 09-21-2024 11:45-0400 Body weight 89.45 kg Kristal Sullivan MD Work Phone: 0(991)491-064375 [place] [address] 09-21-2024 11:45-0400 Diastolic blood pressure 80 mm[Hg] Kristal Sullivan MD Work Phone: 3(281)868-595375 [place] [address] 09-21-2024 11:45-0400 Heart rate 82 /min Kristal Sullivan MD Work Phone: 1(514)630-693175 [place] [address] 09-21-2024 11:45-0400 Respiratory rate 16 /min Kristal Sullivan MD Work Phone: [facility] 09-21-2024 11:45-0400 Systolic blood pressure 135 mm[Hg] Kristal Sullivan MD Work Phone: [facility] 09-07-2024 13:18-0400 Body height 180.[address] Kristal Sullivan MD Work Phone: 5(984)131-783498 [place] [address] 09-07-2024 13:18-0400 Body mass index (BMI) [Ratio] 27.3 kg/m2 Dr. Kristal Sullivan MD Work Phone: 8(038)939-793798 [place] [address] 09-07-2024 13:18-0400 Body weight 88.[address] Kristal Sullivan MD Work Phone: 1(988)770-960698 [place] [address] 09-07-2024 13:18-0400 Diastolic blood pressure 84 mm[Hg] Dr. Kristal Sullivan MD Work Phone: 2(011)788-475398 [place] [address] 09-07-2024 13:18-0400 Heart rate 81 /min Dr. Kristal Sullivan MD Work Phone: 6(164)153-748898 [place] [address] 09-07-2024 13:18-0400 Respiratory rate 16 /min Dr. Kristal Sullivan MD Work Phone: 7(564)267-739998 [place] [address] 09-07-2024 13:18-0400 SaO2% (BldA) [Mass fraction] 98 % Dr. Kristal Sullivan MD Work Phone: 9(228)700-241698 [place] [address] 09-07-2024 13:18-0400 Systolic blood pressure 133 mm[Hg] Dr. Kristal Sullivan MD Work Phone: 8(606)873-926598 [place] [address] 08-31-2024 15:09-0400 Body height 180.[address] Kristal Sullivan MD Work Phone: 2(547)703-545398 [place] [address] 08-31-2024 15:09-0400 Body mass index (BMI) [Ratio] 27.3 kg/m2 Dr. Kristal Sullivan MD Work Phone: 0(379)186-539198 [place] [address] 08-31-2024 15:09-0400 Body weight 88.[address] Kristal Sullivan MD Work Phone: 2(315)712-554698 [place] [address] 08-31-2024 15:09-0400 Diastolic blood pressure 92 mm[Hg] Dr. Kristal Sullivan MD Work Phone: 8(782)434-429798 [place] [address] 08-31-2024 15:09-0400 Heart rate 88 /min Dr. Kristal Sullivan MD Work Phone: 8(680)497-951798 [place] [address] 08-31-2024 15:09-0400 Respiratory rate 18 /min Dr. Kristal Sullivan MD Work Phone: 0(657)008-350398 [place] [address] 08-31-2024 15:09-0400 SaO2% (BldA) [Mass fraction] 97 % Dr. Kristal Sullivan MD Work Phone: 1(202)060-748598 [place] [address] 08-31-2024 15:09-0400 Systolic blood pressure 136 mm[Hg] Dr. Kristal Sullivan MD Work Phone: 7(581)916-458098 [place] [address] 08-31-2024 11:45-0400 Body temperature 98 [degF] Dr. Kristal Sullivan MD Work Phone: 2(492)292-144098 [place] [address] 08-31-2024 11:45-0400 Diastolic blood pressure 65 mm[Hg] Dr. Kristal Sullivan MD Work Phone: 6(675)634-791198 [place] [address] 08-31-2024 11:45-0400 Heart rate 79 /min Dr. Kristal Sullivan MD Work Phone: 5(004)954-517398 [place] [address] 08-31-2024 11:45-0400 Respiratory rate 16 /min Dr. Kristal Sullivan MD Work Phone: 7(525)105-784698 [place] [address] 08-31-2024 11:45-0400 SaO2% (BldA) [Mass fraction] 96 % Dr. Kristal Sullivan MD Work Phone: 3(515)019-152698 [place] [address] 08-31-2024 11:45-0400 Systolic blood pressure 121 mm[Hg] Dr. Kristal Sullivan MD Work Phone: 9(949)966-329098 [place] [address] 08-31-2024 10:38-0400 Body height 180.[address] Kristal Sullivan MD Work Phone: [facility] 08-31-2024 10:38-0400 Body mass index (BMI) [Ratio] 27 kg/m2 Dr. Kristal Sullivan MD Work Phone: [facility] 08-31-2024 10:38-0400 Body weight [address] Kristal Sullivan MD Work Phone: [facility] 08-28-2024 12:14-0400 Body temperature 97.3 [degF] Ervin Mejia MD Work Phone: [facility] 08-28-2024 12:14-0400 Diastolic blood pressure 89 mm[Hg] Ervin Mejia MD Work Phone: [facility] 08-28-2024 12:14-0400 Heart rate 86 /min Ervin Mejia MD Work Phone: [facility] 08-28-2024 12:14-0400 Respiratory rate 20 /min Ervin Mejia MD Work Phone: [facility] 08-28-2024 12:14-0400 SaO2% (BldA) [Mass fraction] 97 % Ervin Mejia MD Work Phone: [facility] 08-28-2024 12:14-0400 Systolic blood pressure 155 mm[Hg] Ervin Mejia MD Work Phone: [facility] 08-25-2024 11:00-0400 Body mass index (BMI) [Ratio] 27.59 kg/m2 Ervin Mejia MD Work Phone: [facility] 08-25-2024 11:00-0400 Body weight 89.72 kg Ervin Mejia MD Work Phone: [facility] 08-23-2024 10:31-0400 Body height 180.3 cm Ervin Mejia MD Work Phone: [facility] 08-23-2024 07:00-0400 Diastolic blood pressure 67 mm[Hg] Dr. Kristal Sullivan MD Work Phone: 3(463)691-853798 [place] [address] 08-23-2024 07:00-0400 Heart rate 97 /min Dr. Kristal Sullivan MD Work Phone: 0(309)218-062898 [place] [address] 08-23-2024 07:00-0400 Respiratory rate 18 /min Dr. Kristal Sullivan MD Work Phone: 2(442)258-682598 [place] [address] 08-23-2024 07:00-0400 SaO2% (BldA) [Mass fraction] 99 % Dr. Kristal Sullivan MD Work Phone: 4(137)019-065498 [place] [address] 08-23-2024 07:00-0400 Systolic blood pressure 118 mm[Hg] Dr. Kristal Sullivan MD Work Phone: 0(986)630-572698 [place] [address] 08-23-2024 06:58-0400 Body temperature 99.2 [degF] Dr. Kristal Sullivan MD Work Phone: 3(644)433-610198 [place] [address] 08-23-2024 00:57-0400 Body mass index (BMI) [Ratio] 26.5 kg/m2 Dr. Kristal Sullivan MD Work Phone: 0(673)499-750898 [place] [address] 08-23-2024 00:57-0400 Body weight 86.[address] Kristal Sullivan MD Work Phone: 1(473)430-721198 [place] [address] 08-23-2024 00:31-0400 Body height 180.[address] Kristal Sullivan MD Work Phone: 9(319)300-777198 [place] [address] 08-17-2024 14:47-0400 Body height 180.[address] Kristal Sullivan MD Work Phone: 0(083)087-022798 [place] [address] 08-17-2024 14:47-0400 Body mass index (BMI) [Ratio] 26.6 kg/m2 Dr. Kristal Sullivan MD Work Phone: 5(248)063-462398 [place] [address] 08-17-2024 14:47-0400 Body weight 86.[address] Kristal Sullivan MD Work Phone: 2(417)627-753698 [place] [address] 08-17-2024 14:47-0400 Diastolic blood pressure 88 mm[Hg] Dr. Kristal Sullivan MD Work Phone: 8(031)336-680698 [place] [address] 08-17-2024 14:47-0400 Heart rate 98 /min Dr. Kristal Sullivan MD Work Phone: 6(712)724-659998 [place] [address] 08-17-2024 14:47-0400 Respiratory rate 18 /min Dr. Kristal Sullivan MD Work Phone: 6(775)112-152198 [place] [address] 08-17-2024 14:47-0400 SaO2% (BldA) [Mass fraction] 98 % Dr. Kristal Sullivan MD Work Phone: 4(847)613-321398 [place] [address] 08-17-2024 14:47-0400 Systolic blood pressure 123 mm[Hg] Dr. Kristal Sullivan MD Work Phone: 9(867)309-617998 [place] [address] 08-11-2024 16:02-0400 Diastolic blood pressure 67 mm[Hg] Dr. Kristal Sullivan MD Work Phone: 9(847)405-513398 [place] [address] 08-11-2024 16:02-0400 Heart rate 102 /min Dr. Kristal Sullivan MD Work Phone: 7(745)712-793298 [place] [address] 08-11-2024 16:02-0400 Systolic blood pressure 136 mm[Hg] Dr. Kristal Sullivan MD Work Phone: 0(910)928-126498 [place] [address] 08-11-2024 15:03-0400 Body temperature 98.1 [degF] Dr. Kristal Sullivan MD Work Phone: 5(105)277-020098 [place] [address] 08-11-2024 15:03-0400 Respiratory rate 16 /min Dr. Kristal Sullivan MD Work Phone: 3(685)331-933698 [place] [address] 08-11-2024 15:03-0400 SaO2% (BldA) [Mass fraction] 98 % Dr. Kristal Sullivan MD Work Phone: 2(406)607-305198 [place] [address] 08-11-2024 14:42-0400 Body mass index (BMI) [Ratio] 26.9 kg/m2 Dr. Kristal Sullivan MD Work Phone: 3(416)934-319798 [place] [address] 08-11-2024 14:42-0400 Body weight 87.[address] Kristla Sullivan MD Work Phone: 6(408)421-711298 [place] [address] 08-11-2024 14:02-0400 Body height 180.[address] Kristal Sullivan MD Work Phone: 3(350)022-468698 [place] [address] 08-10-2024 23:50-0400 Body temperature 98.3 [degF] Dr. Kristal Sullivan MD Work Phone: 1(351)125-312098 [place] [address] 08-10-2024 23:50-0400 Diastolic blood pressure 96 mm[Hg] Dr. Kristal Sullivan MD Work Phone: 4(295)811-458498 [place] [address] 08-10-2024 23:50-0400 Heart rate 108 /min Dr. Kristal Sullivan MD Work Phone: 0(924)844-006098 [place] [address] 08-10-2024 23:50-0400 Respiratory rate 19 /min Dr. Kristal Sullivan MD Work Phone: 0(848)435-349498 [place] [address] 08-10-2024 23:50-0400 SaO2% (BldA) [Mass fraction] 100 % Dr. Kristal Sullivan MD Work Phone: 1(531)574-042998 [place] [address] 08-10-2024 23:50-0400 Systolic blood pressure 164 mm[Hg] Dr. Kristal Sullivan MD Work Phone: 6(565)493-036798 [place] [address] 08-10-2024 19:36-0400 Body height 180.[address] Kristal Sullivan MD Work Phone: 0(952)757-549998 [place] [address] 08-10-2024 19:36-0400 Body mass index (BMI) [Ratio] 27.7 kg/m2 Dr. Kristal Sullivan MD Work Phone: 2(874)773-678098 [place] [address] 08-10-2024 19:36-0400 Body weight 90.[address] Kristal Sullivan MD Work Phone: 4(637)209-500398 [place] [address] 08-05-2024 10:54-0400 Body temperature 97.8 [degF] Dr. Kristal Sullivan MD Work Phone: 2(971)062-157698 [place] [address] 08-05-2024 10:54-0400 Body weight 91.[address] Kristal Sullivan MD Work Phone: 1(244)821-030498 [place] [address] 08-05-2024 10:54-0400 Diastolic blood pressure 94 mm[Hg] Dr. Kristal Sullivan MD Work Phone: 1(290)293-210898 [place] [address] 08-05-2024 10:54-0400 Heart rate 96 /min Dr. Kristal Sullivan MD Work Phone: 4(578)806-493698 [place] [address] 08-05-2024 10:54-0400 Respiratory rate 16 /min Dr. Kristal Sullivan MD Work Phone: 9(020)676-847498 [place] [address] 08-05-2024 10:54-0400 SaO2% (BldA) [Mass fraction] 98 % Dr. Kristal Sullivan MD Work Phone: 5(676)367-633298 [place] [address] 08-05-2024 10:54-0400 Systolic blood pressure 142 mm[Hg] Dr. Kristal Sullivan MD Work Phone: 5(163)633-795598 [place] [address] 07-28-2024 10:37-0400 Body mass index (BMI) [Ratio] 28.5 kg/m2 Dr. Kristal Sullivan MD Work Phone: 4(824)030-720698 [place] [address] 07-28-2024 10:37-0400 Body weight 92.[address] Kristal Sullivan MD Work Phone: 1(612)078-196498 [place] [address] 07-28-2024 10:37-0400 Diastolic blood pressure 93 mm[Hg] Dr. Kristal Sullivan MD Work Phone: 7(879)726-591898 [place] [address] 07-28-2024 10:37-0400 Heart rate 80 /min Dr. Kristal Sullivan MD Work Phone: 4(708)198-179998 [place] [address] 07-28-2024 10:37-0400 SaO2% (BldA) [Mass fraction] 97 % Dr. Kristal Sullivan MD Work Phone: 8(242)759-365698 [place] [address] 07-28-2024 10:37-0400 Systolic blood pressure 189 mm[Hg] Dr. Kristal Sulilvan MD Work Phone: 3(797)677-195698 [place] [address] 07-20-2024 17:15-0400 Diastolic blood pressure 88 mm[Hg] Dr. Kristal Sullivan MD Work Phone: 5(046)428-104298 [place] [address] 07-20-2024 17:15-0400 Heart rate 67 /min Dr. Kristal Sullivan MD Work Phone: 3(793)723-192898 [place] [address] 07-20-2024 17:15-0400 Respiratory rate 16 /min Dr. Kristal Sullivan MD Work Phone: 8(590)791-522298 [place] [address] 07-20-2024 17:15-0400 SaO2% (BldA) [Mass fraction] 94 % Dr. Kristal Sullivan MD Work Phone: 1(313)055-821498 [place] [address] 07-20-2024 17:15-0400 Systolic blood pressure 158 mm[Hg] Dr. Kristal Sullivan MD Work Phone: 0(171)180-427898 [place] [address] 07-20-2024 16:55-0400 Body temperature 97.3 [degF] Dr. Kristal Sullivan MD Work Phone: 6(271)258-406398 [place] [address] 07-20-2024 13:23-0400 Body height 180.[address] Kristal Sullivan MD Work Phone: 5(492)097-813698 [place] [address] 07-20-2024 13:23-0400 Body mass index (BMI) [Ratio] 28.5 kg/m2 Dr. Kristal Sullivan MD Work Phone: 6(610)248-976298 [place] [address] 07-20-2024 13:23-0400 Body weight 92.[address] Kristal Sullivan MD Work Phone: 1(024)146-456898 [place] [address] 07-07-2024 07:22-0400 Body height 180.34 cm No Primary Care Physician [facility] 07-07-2024 07:22-0400 Body weight 92.98 kg No Primary Care Physician [facility] 06-30-2024 08:01-0400 Body mass index (BMI) [Ratio] 28.5 kg/m2 No Primary Care Physician [facility] 06-18-2024 11:27-0400 Body temperature 98.4 [degF] No Primary Care Physician [facility] 06-18-2024 11:27-0400 Body weight 92.98 kg No Primary Care Physician [facility] 06-18-2024 11:27-0400 Diastolic blood pressure 94 mm[Hg] No Primary Care Physician [facility] 06-18-2024 11:27-0400 Heart rate 84 /min No Primary Care Physician [facility] 06-18-2024 11:27-0400 Respiratory rate 16 /min No Primary Care Physician [facility] 06-18-2024 11:27-0400 SaO2% (BldA) [Mass fraction] 99 % No Primary Care Physician [facility] 06-18-2024 11:27-0400 Systolic blood pressure 151 mm[Hg] No Primary Care Physician [facility] 06-15-2024 13:30-0400 Body height 180 cm Kristal Sullivan MD Work Phone: [facility] 06-15-2024 13:30-0400 Body mass index (BMI) [Ratio] 28.28 kg/m2 Kristal Sullivan MD Work Phone: [facility] 06-15-2024 13:30-0400 Body weight 91.63 kg Kristal Sullivan MD Work Phone: [facility] 06-15-2024 13:30-0400 Diastolic blood pressure 66 mm[Hg] Kristal Sullivan MD Work Phone: [facility] 06-15-2024 13:30-0400 Heart rate 90 /min Kristal Sullivan MD Work Phone: [facility] 06-15-2024 13:30-0400 SaO2% (BldA) [Mass fraction] 97 % Kristal Sullivan MD Work Phone: [facility] 06-15-2024 13:30-0400 Systolic blood pressure 118 mm[Hg] Kristal Sullivan MD Work Phone: [facility] 04-23-2024 08:17-0500 Body temperature 98.2 [degF] No Primary Care Physician [facility] 04-23-2024 08:17-0500 Body weight 96.16 kg No Primary Care Physician [facility] 04-23-2024 08:17-0500 Diastolic blood pressure 101 mm[Hg] No Primary Care Physician [facility] 04-23-2024 08:17-0500 Heart rate 93 /min No Primary Care Physician [facility] 04-23-2024 08:17-0500 Respiratory rate 16 /min No Primary Care Physician [facility] 04-23-2024 08:17-0500 SaO2% (BldA) [Mass fraction] 98 % No Primary Care Physician [facility] 04-23-2024 08:17-0500 Systolic blood pressure 184 mm[Hg] No Primary Care Physician [facility] 04-20-2024 12:23-0500 Body temperature 98 [degF] No Primary Care Physician [facility] 04-20-2024 12:23-0500 Diastolic blood pressure 74 mm[Hg] No Primary Care Physician [facility] 04-20-2024 12:23-0500 Heart rate 89 /min No Primary Care Physician [facility] 04-20-2024 12:23-0500 Respiratory rate 16 /min No Primary Care Physician [facility] 04-20-2024 12:23-0500 SaO2% (BldA) [Mass fraction] 97 % No Primary Care Physician [facility] 04-20-2024 12:23-0500 Systolic blood pressure 164 mm[Hg] No Primary Care Physician [facility] 04-20-2024 10:23-0500 Body height 180.34 cm No Primary Care Physician [facility] 04-20-2024 10:23-0500 Body mass index (BMI) [Ratio] 29.3 kg/m2 No Primary Care Physician [facility] 04-20-2024 10:23-0500 Body weight 95.5 kg No Primary Care Physician [facility] 02-25-2024 10:16-0500 Body mass index (BMI) [Ratio] 27.9 kg/m2 No Primary Care Physician [facility] 02-25-2024 10:16-0500 Body weight 90.83 kg No Primary Care Physician [facility] 02-25-2024 10:16-0500 Diastolic blood pressure 71 mm[Hg] No Primary Care Physician [facility] 02-25-2024 10:16-0500 Heart rate 60 /min No Primary Care Physician [facility] 02-25-2024 10:16-0500 SaO2% (BldA) [Mass fraction] 94 % No Primary Care Physician [facility] 02-25-2024 10:16-0500 Systolic blood pressure 129 mm[Hg] No Primary Care Physician [facility] 02-25-2024 09:17-0500 Body mass index (BMI) [Ratio] 27.7 kg/m2 No Primary Care Physician [facility] 02-25-2024 09:17-0500 Body weight 90.26 kg No Primary Care Physician [facility] 02-25-2024 09:17-0500 Diastolic blood pressure 75 mm[Hg] No Primary Care Physician [facility] 02-25-2024 09:17-0500 Heart rate 84 /min No Primary Care Physician [facility] 02-25-2024 09:17-0500 Respiratory rate 18 /min No Primary Care Physician [facility] 02-25-2024 09:17-0500 SaO2% (BldA) [Mass fraction] 100 % No Primary Care Physician [facility] 02-25-2024 09:17-0500 Systolic blood pressure 110 mm[Hg] No Primary Care Physician [facility] 08-28-2023 12:51-0400 Body height 180.[address] Work Phone: [facility] 08-28-2023 12:51-0400 Body mass index (BMI) [Ratio] 29.43 kg/m2 Virgen Stroud RD Work Phone: [facility] 08-28-2023 12:51-0400 Body weight 95.[address] Work Phone: [facility] 08-01-2023 11:37-0400 Body temperature 97.5 [degF] Dr. Kristal Sullivan Work Phone: [facility] 08-01-2023 11:37-0400 Diastolic blood pressure 90 mm[Hg] Dr. Kristal Sullivan Work Phone: [facility] 08-01-2023 11:37-0400 Heart rate 68 /min Dr. Kristal Sullivan Work Phone: 6(735)492-140498 [place] [address] 08-01-2023 11:37-0400 Respiratory rate 18 /min Dr. Kristal Sullivan Work Phone: 5(886)945-220798 [place] [address] 08-01-2023 11:37-0400 SaO2% (BldA) [Mass fraction] 96 % Dr. Kristal Sullivan Work Phone: 4(955)243-527398 [place] [address] 08-01-2023 11:37-0400 Systolic blood pressure 143 mm[Hg] Dr. Kristal Sullivan Work Phone: 1(470)226-382398 [place] [address] 08-01-2023 10:35-0400 Inhaled oxygen flow rate 2 L/min Dr. Kristal Sullivan Work Phone: 8(168)956-097798 [place] [address] 08-01-2023 07:06-0400 Body height 180.[address] Kristal Sullivan Work Phone: 7(113)045-634098 [place] [address] 08-01-2023 07:06-0400 Body mass index (BMI) [Ratio] 29.8 kg/m2 Dr. Kristal Sullivan Work Phone: 2(862)092-294498 [place] [address] 08-01-2023 07:06-0400 Body weight [address] Kristal Sullivan Work Phone: 6(033)293-539198 [place] [address] 07-30-2023 14:21-0400 Body mass index (BMI) [Ratio] 30.5 kg/m2 Dr. Kristal Sullivan Work Phone: 1(828)253-292498 [place] [address] 07-30-2023 14:21-0400 Body weight 99.[address] Kristal Sullivan Work Phone: 2(607)072-636998 [place] [address] 07-30-2023 14:21-0400 Diastolic blood pressure 87 mm[Hg] Dr. Kristal Sullivan Work Phone: 5(241)414-173098 [place] [address] 07-30-2023 14:21-0400 Respiratory rate 16 /min Dr. Kristal Sullivan Work Phone: 8(290)482-243098 [place] [address] 07-30-2023 14:21-0400 Systolic blood pressure 157 mm[Hg] Dr. Kristal Sullivan Work Phone: [facility] 07-03-2023 12:05-0400 SaO2% (BldA) [Mass fraction] 97 % Dr. Kristal Sullivan Work Phone: [facility] 07-03-2023 08:50-0400 Heart rate 85 /min Dr. Kristal Sullivan Work Phone: 6(559)406-083416 [place] [address] 07-03-2023 08:48-0400 Body temperature 97.8 [degF] Dr. Kristal Sullivan Work Phone: 6(386)865-898298 [place] [address] 07-03-2023 08:48-0400 Diastolic blood pressure 96 mm[Hg] Dr. Kristal Sullivan Work Phone: 3(825)700-369698 [place] [address] 07-03-2023 08:48-0400 Respiratory rate 11 /min Dr. Kristal Sullivan Work Phone: 9(158)019-442198 [place] [address] 07-03-2023 08:48-0400 Systolic blood pressure 160 mm[Hg] Dr. Kristal Sullivan Work Phone: 7(372)270-250698 [place] [address] 07-02-2023 11:34-0400 Body height 180.[address] Kristal Sullivan Work Phone: 0(742)308-409998 [place] [address] 07-02-2023 11:34-0400 Body weight 103.[address] Kristal Sullivan Work Phone: 2(457)824-025198 [place] [address] 07-02-2023 10:00-0400 Body temperature 98.2 [degF] Dr. Kristal Sullivan Work Phone: 3(883)394-393116 [place] [address] 07-02-2023 10:00-0400 Diastolic blood pressure 98 mm[Hg] Dr. Kristal Sullivan Work Phone: 9(859)654-569816 [place] [address] 07-02-2023 10:00-0400 Heart rate 93 /min Dr. Kristal Sullivan Work Phone: 3(990)768-507016 [place] [address] 07-02-2023 10:00-0400 Respiratory rate 16 /min Dr. Kristal Sullivan Work Phone: 6(148)889-151816 [place] [address] 07-02-2023 10:00-0400 SaO2% (BldA) [Mass fraction] 91 % Dr. Kristal Sullivan Work Phone: 7(565)514-804698 [place] [address] 07-02-2023 10:00-0400 Systolic blood pressure 175 mm[Hg] Dr. Kristal Sullivan Work Phone: 8(002)143-064598 [place] [address] 07-01-2023 19:29-0400 Body mass index (BMI) [Ratio] 31.7 kg/m2 Dr. Kristal Sullivan Work Phone: 1(198)784-575998 [place] [address] 07-01-2023 19:01-0400 Body temperature 98 [degF] Dr. Kristal Sullivan Work Phone: 5(026)516-852398 [place] [address] 07-01-2023 19:01-0400 Diastolic blood pressure 66 mm[Hg] Dr. Kristal Sullivan Work Phone: 2(647)840-720098 [place] [address] 07-01-2023 19:01-0400 Heart rate 90 /min Dr. Kristal Sullivan Work Phone: 0(363)631-016998 [place] [address] 07-01-2023 19:01-0400 Respiratory rate 18 /min Dr. Kristal Sullivan Work Phone: 3(381)064-337298 [place] [address] 07-01-2023 19:01-0400 SaO2% (BldA) [Mass fraction] 93 % Dr. Kristal Sullivan Work Phone: 1(846)242-944598 [place] [address] 07-01-2023 19:01-0400 Systolic blood pressure 140 mm[Hg] Dr. Kristal Sullivan Work Phone: 1(148)978-394198 [place] [address] 07-01-2023 12:53-0400 Body height 180.[address] Kristal Sullivan Work Phone: 5(725)448-285598 [place] [address] 07-01-2023 12:53-0400 Body mass index (BMI) [Ratio] 32.2 kg/m2 Dr. Kristal Sullivan Work Phone: 5(366)681-583098 [place] [address] 07-01-2023 12:53-0400 Body weight 104.[address] Kristal Sullivan Work Phone: 3(295)856-930698 [place] [address] 05-14-2023 13:10-0500 Body height 180.[address] Kristal Sullivan Work Phone: 8(844)181-366098 [place] [address] 05-14-2023 13:10-0500 Body mass index (BMI) [Ratio] 32.1 kg/m2 Dr. Kristal Sullivan Work Phone: 0(724)674-909398 [place] [address] 05-14-2023 13:10-0500 Body temperature 98.6 [degF] Dr. Kristal Sullivan Work Phone: 8(391)937-943098 [place] [address] 05-14-2023 13:10-0500 Body weight 104.[address] Kristal Sullivan Work Phone: 7(323)317-853598 [place] [address] 05-14-2023 13:10-0500 Diastolic blood pressure 90 mm[Hg] Dr. Kristal Sullivan Work Phone: 8(219)563-997498 [place] [address] 05-14-2023 13:10-0500 Heart rate 86 /min Dr. Kristal Sullivan Work Phone: 3(176)628-293698 [place] [address] 05-14-2023 13:10-0500 Respiratory rate 18 /min Dr. Kristal Sullivan Work Phone: 5(894)337-866598 [place] [address] 05-14-2023 13:10-0500 SaO2% (BldA) [Mass fraction] 99 % Dr. Kristal Sullivan Work Phone: 1(310)406-232998 [place] [address] 05-14-2023 13:10-0500 Systolic blood pressure 180 mm[Hg] Dr. Kristal Sullivan Work Phone: 2(064)375-574298 [place] [address] 04-07-2023 11:16-0500 Body mass index (BMI) [Ratio] 31.1 kg/m2 Dr. Kristal Sullivan Work Phone: 4(060)630-722098 [place] [address] 04-07-2023 11:16-0500 Body temperature 97.3 [degF] Dr. Kristal Sullivan Work Phone: 7(921)081-084598 [place] [address] 04-07-2023 11:16-0500 Body weight 101.[address] Kristal Sullivan Work Phone: 6(774)661-326398 [place] [address] 04-07-2023 11:16-0500 Diastolic blood pressure 104 mm[Hg] Dr. Kristal Sullivan Work Phone: [facility] 04-07-2023 11:16-0500 Heart rate 101 /min Dr. Kristal Sullivan Work Phone: [facility] 04-07-2023 11:16-0500 Respiratory rate 18 /min Dr. Kristal Sullivan Work Phone: [facility] 04-07-2023 11:16-0500 SaO2% (BldA) [Mass fraction] 99 % Dr. Kristal Sullivan Work Phone: [facility] 04-07-2023 11:16-0500 Systolic blood pressure 187 mm[Hg] Dr. Kristal Sullivan Work Phone: [facility] 07-02-2022 12:16-0400 Diastolic blood pressure 96 mm[Hg] Yas Murray [employer] Work Phone: [facility] 07-02-2022 12:16-0400 Heart rate 87 /min Yas Murray [employer] Work Phone: [facility] 07-02-2022 12:16-0400 Systolic blood pressure 166 mm[Hg] Yas Murray [employer] Work Phone: [facility] 07-02-2022 12:05-0400 Body weight 94.8 kg Yas Murray [employer]PER[employer] Work Phone: [facility] 07-02-2022 12:05-0400 Respiratory rate 16 /min Yas Murray [employer] Work Phone: [facility] 05-31-2022 12:02-0500 Diastolic blood pressure 92 mm[Hg] Kristal Sullivan MD Work Phone: [facility] [facility] 05-31-[facility]22 12:02-0500 Systolic blood pressure 136 mm[Hg] Kristal Sullivan MD Work Phone: [facility] 05-31-2022 11:45-0500 Body height 180.3 cm Kristal Sullivan MD Work Phone: [facility] 05-31-2022 11:45-0500 Body temperature 97.9 [degF] Kristal Sullivan MD Work Phone: [facility] 05-31-2022 11:45-0500 Body weight 94.8 kg Kristal Sullivan MD Work Phone: [facility] 05-31-2022 11:45-0500 Heart rate 96 /min Kristal Sullivan MD Work Phone: [facility] 05-31-2022 11:45-0500 Respiratory rate 12 /min Kristal Sullivan MD Work Phone: [facility] 05-31-2022 11:45-0500 SaO2% (BldA) [Mass fraction] 100 % Kristal Sullivan MD Work Phone: [facility] 04-26-2022 11:40-0500 Body height 180.3 cm Kristal Sullivan MD Work Phone: [facility] 04-26-2022 11:40-0500 Body temperature 99.39 [degF] Kristal Sullivan MD Work Phone: [facility] 04-26-2022 11:40-0500 Body weight 100.25 kg Kristal Sullivan MD Work Phone: [facility] 04-26-2022 11:40-0500 Diastolic blood pressure 76 mm[Hg] Kristal Sullivan MD Work Phone: [facility] 04-26-2022 11:40-0500 Heart rate 96 /min Kristal Sullivan MD Work Phone: [facility] 04-26-2022 11:40-0500 Respiratory rate 12 /min Kristal Sullivan MD Work Phone: [facility] 04-26-2022 11:40-0500 SaO2% (BldA) [Mass fraction] 99 % Kristal Sullivan MD Work Phone: [facility] 04-26-2022 11:40-0500 Systolic blood pressure 136 mm[Hg] Kristal Sullivan MD Work Phone: [facility] 11-02-2021 19:18-0400 Diastolic blood pressure 99 mm[Hg] Dr. Kristal Sullivan Work Phone: [facility] Work Phone: 11-02-2021 19:18-0400 Heart rate 79 /min Dr. Kristal Sullivan Work Phone: [facility] Work Phone: 11-02-2021 19:18-0400 Respiratory rate 18 /min Dr. Kristal Sullivan Work Phone: [facility] Work Phone: 11-02-2021 19:18-0400 SaO2% (BldA) [Mass fraction] 100 % Dr. Kristal Sullivan Work Phone: [facility] Work Phone: 11-02-2021 19:18-0400 Systolic blood pressure 150 mm[Hg] Dr. Kristal Sullivan Work Phone: [facility] Work Phone: 11-02-2021 16:25-0400 Body height 180.[address] Kristal Sullivan Work Phone: [facility] Work Phone: 11-02-2021 16:25-0400 Body mass index (BMI) [Ratio] 30.8 kg/m2 Dr. Kristal Sullivan Work Phone: [facility] Work Phone: 11-02-2021 16:25-0400 Body temperature 98.7 [degF] Dr. Kristal Sullivan Work Phone: [facility] Work Phone: 11-02-2021 16:25-0400 Body weight 100.[address] Kristal Sullivan Work Phone: [facility] Work Phone: 10-08-2021 14:15-0400 Body mass index (BMI) [Ratio] 30.9 kg/m2 Dr. Kristal Sullivan Work Phone: [facility] Work Phone: 10-08-2021 14:15-0400 Body temperature 97.1 [degF] Dr. Kristal Sullivan Work Phone: [facility] Work Phone: 10-08-2021 14:15-0400 Body weight 100.[address] Kristal Sullivan Work Phone: [facility] Work Phone: 10-08-2021 14:15-0400 Diastolic blood pressure 80 mm[Hg] Dr. Kristal Sullivan Work Phone: [facility] Work Phone: 10-08-2021 14:15-0400 Heart rate 103 /min Dr. Kristal Sullivan Work Phone: [facility] Work Phone: 10-08-2021 14:15-0400 Respiratory rate 18 /min Dr. Kristal Sullivan Work Phone: [facility] Work Phone: 10-08-2021 14:15-0400 SaO2% (BldA) [Mass fraction] 98 % Dr. Kristal Sullivan Work Phone: [facility] Work Phone: 10-08-2021 14:15-0400 Systolic blood pressure 130 mm[Hg] Dr. Kristal Sullivan Work Phone: [facility] Work Phone: 07-02-2021 13:52-0400 Body height 180.[address] Kristal Sullivan Work Phone: [facility] Work Phone: 07-02-2021 13:52-0400 Body mass index (BMI) [Ratio] 29.3 kg/m2 Dr. Kristal Sullivan Work Phone: [facility] Work Phone: 07-02-2021 13:52-0400 Body temperature 96.9 [degF] Dr. Kristal Sullivan Work Phone: [facility] Work Phone: 07-02-2021 13:52-0400 Body weight 95.[address] Kristal Sullivan Work Phone: [facility] Work Phone: 07-02-2021 13:52-0400 Diastolic blood pressure 84 mm[Hg] Dr. Kristal Sullivan Work Phone: [facility] Work Phone: 07-02-2021 13:52-0400 Heart rate 95 /min Dr. Kristal Sullivan Work Phone: [facility] Work Phone: 07-02-2021 13:52-0400 Respiratory rate 18 /min Dr. Kristal Sullivan Work Phone: [facility] Work Phone: 07-02-2021 13:52-0400 SaO2% (BldA) [Mass fraction] 98 % Dr. Kristal Sullivan Work Phone: [facility] Work Phone: 07-02-2021 13:52-0400 Systolic blood pressure 128 mm[Hg] Dr. Kristal Sullivan Work Phone: [facility] Work Phone: 06-04-2021 15:05-0500 Body mass index (BMI) [Ratio] 30 kg/m2 Dr. Kristal Sullivan Work Phone: [facility] Work Phone: 06-04-2021 15:05-0500 Body temperature 97.2 [degF] Dr. Kristal Sullivan Work Phone: [facility] Work Phone: 06-04-2021 15:05-0500 Body weight 97.[address] Kristal Sullivan Work Phone: [facility] Work Phone: 06-04-2021 15:05-0500 Diastolic blood pressure 90 mm[Hg] Dr. Kristal Sullivan Work Phone: [facility] Work Phone: 06-04-2021 15:05-0500 Heart rate 98 /min Dr. Kristal Sullivan Work Phone: [facility] Work Phone: 06-04-2021 15:05-0500 Respiratory rate 18 /min Dr. Kristal Sullivan Work Phone: [facility] Work Phone: 06-04-2021 15:05-0500 SaO2% (BldA) [Mass fraction] 97 % Dr. Kristal Sullivan Work Phone: [facility] Work Phone: 06-04-2021 15:05-0500 Systolic blood pressure 140 mm[Hg] Dr. Kristal Sullivan Work Phone: [facility] Work Phone: Encounters Encounter Date Encounter Type Care Provider Facility Start: 01-13-2025 ambulatory [facility]ina Conte ty:[facility] Start: 12-29-2024 ambulatory [facility] Facility:[facility] Start: 12-21-2024 End: 12-21-2024 ambulatory [facility] Facility:[facility] Start: 11-17-2024 End: 11-17-2024 Telephone encounter Kidney Txp Coordinators Work Phone: Transplant Center Comment on above: Received Outside Med ical Records Start: 11-02-2024 ambulatory [facility] Facility:[facility] Start: 10-26-2024 End: 10-26-2024 Office outpatient visit 40 minutes Wait List Work Phone: Transplant Center Comment on above: Pre-transplant evalu ation for kidney transplant (Primary Dx) Start: 10-26-2024 End: 10-26-2024 Patient encounter status Wait List Work Phone: [facility] Work Phone: Start: 10-26-2024 End: 10-26-2024 Chart abstracting Bg Jennings RN [facility] Comment on above: Waitlist Status Upda te (Inactive - on Plavix) Start: 10-26-2024 End: 10-26-2024 E-mail encounter from caregiver Bg Jennings RN [facility] Start: 10-26-2024 End: 10-26-2024 Subsequent hospital visit by physician Xr Chest Main J1 Work Phone: Radiology Comment on above: Organ transplant can didate [Z76.82] Start: 10-26-2024 Encounter for other preprocedural examination [facility] Start: 10-26-2024 Encounter for preprocedural cardiovascular examination [facility] Start: 10-26-2024 End: 10-26-2024 Patient encounter procedure Kidney Txp Coordinators Work Phone: Transplant Center Comment on above: Pre-transplant evalu ation for kidney transplant (Primary Dx); ESRD on dialysis (HCC); Pre-transplant evaluation for ESRD (end stage renal disease) ESRD on dialysis (HC C) (Primary Dx); Pre-transplant evaluation for ESRD (end stage renal disease); End stage renal 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 Start: 10-20-2024 Dr. Sofi kapoor MD -[facility] Work Phone: Start: 10-19-2024 End: 10-22-2024 Evaluation and management of inpatient Dr. Kristal Sullivan MD Work Phone: -Progressive Care Unit Start: 10-19-2024 End: 10-22-2024 Dr. Chava Naik MD -Progressive Care Un it Work Phone: Start: 10-19-2024 ambulatory Daisy Diaz Facil ity:[facility] Start: 10-14-2024 End: 10-14-2024 ambulatory KRISTAL SULLIVAN [facility] Comment on above: Pre-transplant evalu ation for kidney transplant (Primary Dx) Start: 10-14-2024 End: 10-14-2024 Patient encounter status Waitlist Education Work Phone: [facility] Start: 10-14-2024 End: 10-14-2024 Telemedicine consultation with patient Waitlist Group Education Work Phone: Transplant Center Start: 10-12-2024 End: 10-25-2024 Orders Only Ronen Eldridge MD Work Phone: Transplant Center Comment on above: Organ transplant can didate; ESRD on dialysis (HCC); Pre-transplant evaluation for ESRD (end stage renal disease); Pre-operative cardiovascular examination Start: 10-12-2024 End: 10-25-2024 Patient encounter status Ronen Eldridge MD Work Phone: [facility] Start: 10-06-2024 End: 10-06-2024 Telephone encounter Kidney Txp Coordinators Work Phone: Transplant Center Comment on above: Appointments Reminde r Start: 09-29-2024 Dr. Daisy Diaz MD -Laboratory Specimen Work Phone: Start: 09-29-2024 ambulatory Daisy Diaz Facil ity:[facility] Start: 09-22-2024 End: 09-23-2024 ambulatory Kristal Sullivan MD Work Phone: Internal [facility] Comment on above: Help Start: 09-22-2024 End: 11-22-2024 Follow-up encounter Kristal Sullivan MD Work Phone: Geriatrics Start: 09-21-2024 End: 09-21-2024 ambulatory RONEN ELDRIDGE Facility:[facility] Start: 09-21-2024 End: 09-21-2024 Office outpatient visit 25 minutes Kristal Sullivan MD Work Phone: [facility] Comment on above: Complication associa sharan with [...] Start: 09-21-2024 End: 09-21-2024 ambulatory KRISTAL SULLIVAN Facility:[facility] Start: 09-16-2024 End: 09-16-[address] Kristal Sullivan MD Work Phone: [facility] Work Phone: Start: 09-16-2024 End: 09-16-2024 Patient encounter procedure Kalina Payne NP-C -Radiology [facility] Work Phone: Start: 09-16-2024 End: 09-16-2024 Kalina Payne NP-C -Radiology [facility] Work Phone: Start: 09-16-2024 End: 09-16-2024 ambulatory Kalina Payne Facility:[facility] Start: 09-13-2024 End: 09-13-2024 Chart abstracting Mratha Cheatham [facility] Comment on above: ED/RECENT ADMIT FOLL OW UP Start: 09-07-2024 End: 09-07-2024 Patient encounter procedure Kalina CASTELLON -[facility] Work Phone: Start: 09-07-2024 End: 09-07-2024 Kalina CASTELLON -[facility] Work Phone: Start: 09-07-2024 End: 09-07-[address] Kristal Sullivan MD Work Phone: [facility] Work Phone: Start: 09-01-2024 End: 10-25-2024 Orders Only Ronen Eldridge MD Work Phone: Transplant Center Comment on above: Organ transplant can didate (Primary Dx); ESRD on dialysis (HCC); Pre-transplant evaluation for ESRD (end stage renal disease); Pre-operative cardiovascular examination Start: 09-01-2024 End: 10-25-2024 Patient encounter status Ronen Eldridge MD Work Phone: [facility] Start: 08-31-2024 End: 08-31-2024 Patient encounter procedure Lorraine Browne NP- -[facility] Work Phone: Start: 08-31-2024 End: 08-31-2024 Lorraine Browne NP- -[facility] Work Phone: Start: 08-31-2024 End: 08-31-[address] Kristal Sullivan MD Work Phone: [facility] Work Phone: Start: 08-31-2024 Non-patient / Non-visit Bao Posada nd DO -[facility] Start: 08-31-2024 End: 08-31-2024 Admission to same day surgery center Bao Angulo DO -Endoscopy Work Phone: Start: 08-31-2024 End: 08-31-2024 Bao Angulo DO -Endoscopy Work Phone: Start: 08-31-2024 End: 08-31-[address] Kristal Sullivan MD Work Phone: [facility] Work Phone: Start: 08-24-2024 ambulatory Kristal Sullivan Facility[facility] Start: 08-23-2024 End: 08-28-2024 Evaluation and management of inpatient Ervin Mejia MD Work Phone: [facility] Cardiac Post Intervention Progressive Care Unit [facility] PCU 4W Comment on above: History of myocardia l infarction (Primary Dx); Vitreous floaters, unspecified laterality Start: 08-23-2024 End: 08-23-2024 Dr. Laurie Elizalde DO -Emergency Departme nt Work Phone: Start: 08-23-2024 End: 08-23-2024 Emergency department patient visit Dr. Kristal Sullivan MD Work Phone: -Emergency Department Work Phone: Start: 08-19-2024 Non-patient / Non-visit Dr. Garrison comer MD -[facility] Start: 08-19-2024 End: 08-19-[address] Kristal Sullivan MD Work Phone: [facility] Work Phone: Start: 08-19-2024 End: 08-19-2024 Patient encounter procedure Thalia Lea NE -Cardiovascular Services Work Phone: Start: 08-19-2024 End: 08-19-2024 Dr. Garrison Valadez MD -[facility] Start: 08-19-2024 End: 08-19-2024 ambulatory [facility] Facility:[facility] Start: 08-17-2024 End: 08-17-2024 Patient encounter procedure Kalina CASTELLON -[facility] Work Phone: Start: 08-17-2024 End: 08-17-2024 Kalina CASTELLON -[facility] Work Phone: Start: 08-17-2024 End: 08-17-[address] Kristal Sullivan MD Work Phone: [facility] Work Phone: Start: 08-11-2024 Non-patient / Non-visit Dr. Louis Koehler MD -[facility] Work Phone: Start: 08-11-2024 Dr. Louis Koehler MD -[facility] Work Phone: Start: 08-11-2024 Non-patient / Non-visit Dr. Shannan LACEY -[facility] Start: 08-11-2024 Dr. Jordy Garcia MD -[facility] Start: 08-10-2024 End: 08-11-2024 Evaluation and management of inpatient Dr. Eugenia London DO -Progressive Care Unit Work Phone: Start: 08-10-2024 End: 08-11-[address] Kristal Sullivan MD Work Phone: [facility] Work Phone: Start: 08-10-2024 End: 08-11-2024 Dr. Louis Koehler MD -[facility] Work Phone: Start: 08-10-2024 End: 08-12-2024 Refill Kristal Sullivan MD Work Phone: [facility] Start: 08-05-2024 End: 08-05-2024 Patient encounter procedure Thalia CASTREJON -[facility] Work Phone: Start: 08-05-2024 End: 08-05-2024 Thalia CASTREJON -[facility] Work Phone: Start: 08-05-2024 End: 08-05-2024 ambulatory [facility] Facility:[facility] Start: 07-28-2024 End: 07-28-2024 Patient encounter procedure Kendra Pierce DIAMOND EXPERT-C -[facility] Work Phone: Start: 07-28-2024 End: 07-28-2024 Kendra Pierce DIAMOND EXPERT-C -[facility] Work Phone: Start: 07-28-2024 End: 07-28-2024 ambulatory [facility] Facility:[facility] Start: 07-20-2024 ambulatory [facility] Start: 07-20-2024 Non-patient / Non-visit Dr. Garrison comer MD -[facility] Start: 07-20-2024 Dr. Garrison Valadez MD -[facility] Start: 07-20-2024 End: 07-20-2024 Admission to same day surgery center Dr. Garrison Valadez MD -[facility] Day [facility] Start: 07-20-2024 End: 07-20-2024 Dr. Garrison Valadez MD -[facility] Day Care Start: 07-20-2024 End: 07-20-[address] Kristal Sullivan MD Work Phone: [facility] Work Phone: Start: 07-14-2024 End: 07-14-2024 Chart abstracting Roro Pollard [facility] Comment on above: abo verification listed phone call Start: 07-07-2024 ambulatory [facility] Start: 07-07-2024 Non-patient / Non-visit Dr. Garrison comer MD -[facility] Start: 07-07-2024 Dr. Garrison Valadez MD -[facility] Start: 07-07-2024 End: 07-07-2024 Admission to same day surgery center Dr. Garrison Valadez MD -Frame Polisher/Special Procedures Work Phone: Start: 07-07-2024 End: 07-07-2024 ambulatory No Primary Care Physician [facility] Work Phone: Start: 07-07-2024 End: 07-07-2024 Dr. Garrison Valadez MD -Frame Polisher/Special Procedures Work Phone: Start: 06-24-2024 End: 06-24-2024 ambulatory [facility] Facility:[facility] Start: 06-23-2024 End: 06-23-2024 Chart abstracting Roro Pollard [facility] Comment on above: approval note Start: 06-18-2024 End: 06-23-2024 Telephone encounter Kristal Sullivan MD Work Phone: Internal [facility] Comment on above: Forms (BMV Request f or Statement of Physician) Start: 06-18-2024 End: 06-18-2024 Patient encounter procedure Thalia CASTREJON -[facility] Work Phone: Start: 06-18-2024 End: 06-18-2024 ambulatory [facility] Facility:[facility] Start: 06-17-2024 End: 08-17-2024 Follow-up encounter Kristal Sullivan MD Work Phone: Geriatrics Start: 06-15-2024 End: 06-15-2024 ambulatory [facility] Facility:[facility] Start: 06-15-2024 End: 06-15-2024 Patient encounter procedure Kristal Sullivan MD Work Phone: [facility] Work Phone: Start: 06-15-2024 End: 06-15-2024 Periodic preventive med est patient 40-64yrs Kristal Sullivan MD Work Phone: [facility] Medicine [facility] Comment on above: Annual physical exam (Primary Dx); Obstructive sleep apnea (adult) (pediatric); Essential (primary) hypertension; long term (current) use of insulin (HCC); Pruritus; 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 Garrison comer MD -[facility] Start: 06-10-2024 End: 06-10-2024 ambulatory No Primary Care Physician [facility] Work Phone: Start: 06-10-2024 End: 06-10-2024 Patient encounter procedure Thalia CASTREJON -Cardiovascular Services Work Phone: Start: 06-10-2024 End: 06-10-2024 ambulatory [facility] Facility:[facility] Start: 06-04-2024 End: 06-04-2024 Chart abstracting Rukhsana Hernandez [facility] Work Phone: [facility] Start: 06-03-2024 End: 06-03-2024 [...] Kristal Sullivan MD Work Phone: [facility] Comment on above: Diabetes Start: 04-29-2024 End: 04-29-2024 Telephone encounter Ciarra Tna Darrell ANDERSON Work Phone: Transplant Center Comment on above: Follow Up Start: 04-23-2024 End: 04-23-2024 Patient encounter procedure Thalia CASTREJON -[facility] Work Phone: Start: 04-23-2024 End: 04-23-2024 ambulatory Kristal Gan [facility] Start: 04-22-2024 ambulatory Virgen CASTREJON [facility] Start: 04-20-2024 End: 04-20-2024 Emergency department patient visit Dr. Kristi Murillo DO -Emergency Department Work Phone: Start: 04-12-2024 End: 04-12-2024 Nursing evaluation of patient and report Nurse Card Admin [facility] Work Phone: Cardiology Comment on above: Encounter for other preprocedural examination Start: 04-12-2024 End: 04-12-2024 Patient encounter status Nurse Card Admin [facility] Work Phone: [facility] Start: 04-12-2024 End: 04-12-2024 ambulatory [facility] Facility:[facility] Start: 04-12-2024 End: 04-12-2024 ambulatory [facility] Facility:[facility] Start: 04-12-2024 Encounter for other preprocedural examination [facility] Start: 04-12-2024 End: 04-12-2024 Patient encounter status Injection Wstr Work Phone: [facility] Start: 04-12-2024 End: 04-12-2024 Subsequent hospital visit by physician Injection Nm [facility] Work Phone: Nuclear Medicine Comment on above: Encounter for other preprocedural examination [Z01.818] Start: 04-08-2024 ambulatory Daisy Diaz Facil ity:[facility] Start: 04-07-2024 End: 04-07-2024 ambulatory Nurse [facility] Work Phone: Cardiology Comment on above: Your upcoming stress test Start: 04-07-2024 End: 04-07-2024 E-mail encounter from caregiver Nurse [facility] Work Phone: Cardiology Start: 03-16-2024 ambulatory Virgen CASTREJON Facility:[facility] Start: 03-16-2024 Non-patient / Non-visit Dr. Garrison comer MD -[facility] Start: 03-16-2024 End: 03-16-[address] Daisy Diaz MD -Cardiovascular Services Work Phone: Start: 03-16-2024 End: 03-16-2024 ambulatory Daisy Diaz Facility:[facility] Start: 02-25-2024 End: 02-25-2024 Patient encounter procedure Kendra Pierce DIAMOND EXPERT-C -[facility] Work Phone: Start: 02-25-2024 End: 02-25-2024 ambulatory Kendra Pierce Facility:[facility] Start: 02-25-2024 End: 02-25-2024 Patient encounter procedure Virgen CASTREJON -[facility] Work Phone: Start: 02-25-2024 End: 02-25-2024 ambulatory Virgen CASTREJON Facility:[facility] Start: 02-16-2024 ambulatory Kendra Pierce Facility [facility] Start: 02-06-2024 End: 02-10-2024 Telephone encounter Kidney Txp Coordinators Work Phone: Transplant Center Comment on above: Patient Update Start: 01-30-2024 End: 01-30-2024 ambulatory No Primary Care Physician Facility:[facility] Start: 01-28-2024 ambulatory Kendra Pierce Facility :[facility] Start: 01-26-2024 ambulatory Hussein Efren [facility] Start: 01-23-2024 ambulatory Venkata Vargas Facili ty:[facility] Start: 01-23-2024 End: 01-31-2024 Evaluation and management of inpatient Venkata Vargas Facility:[facility] Start: 12-20-2023 End: 12-20-2023 ambulatory NONE PHYSICIAN Facility:A Start: 12-20-2023 End: 12-20-2023 Patient encounter procedure NICOLASA WO ID REFERRING [facility] Start: 11-10-2023 ambulatory Nurse Card Adm in [facility] Work Phone: Cardiology Comment on above: Stress Test Instruct ions for 11/17/23 Start: 11-10-2023 E-mail encounter fro m caregiver Nurse Card Admin [facility] Work Phone: Cardiology Start: 09-01-2023 Chart abstracting Roro MillerTxp) Atul JERONIMOarc welding machine operator Center Comment on above: Clinical Update Start: [...] encounter status Kidney Txp Coordinators Work Phone: [facility] Start: 08-21-2023 Telephone encounter Floyd Hooper-Dai [facility] operator Center Comment on above: Missed Appointment Start: 08-14-2023 Telephone encounter Kidney Txp Coordinators Work Phone: Transplant Center Comment on above: Appointment Start: 08-01-2023 Non-patient / Non-visit Dr. Eddie Sullivan Work Phone: [facility] Start: 08-01-2023 End: 08-01-2023 Admission to same day surgery center [facility] Start: 08-01-2023 End: 08-01-[address] Kristal Sullivan Work Phone: [facility] Work Phone: Start: 07-31-2023 Non-patient / Non-visit Dr. Eddie Sullivan Work Phone: [facility] Start: 07-31-2023 End: 07-31-[address] Kristal Sullivan Work Phone: [facility] Work Phone: Start: 07-31-2023 End: 07-31-[address] Krist[facility] Start: 07-31-2023 Chart abstracting Cecilia P[facility] Comment on above: Pre-transplant evalu ation for kidney and pancreas transplant (Primary Dx); Chronic renal failure, stage 4 (severe) (HCC) Pre-transplant evalu ation for kidney transplant (Primary Dx) Start: 07-31-2023 Patient encounter status Dori Chung PA-C Work Phone: [facility] Start: 07-30-[address] Reji Sullivan Work Phone: [facility] Start: 07-30-2023 End: 07-30-[address] Kristal Sullivan Work Phone: [facility] Work Phone: Start: 07-29-2023 Telephone encounter Concha Araiza [facility] Comment on above: Referral - Kidney Tx p Start: 07-23-2023 End: 07-23-[address] Kristal Sullivan Work Phone: [facility] Work Phone: Start: 07-23-2023 End: 07-23-[address] Kristal Sullivan Work Phone: [facility]-Laboratory Work Phone: Start: 07-03-2023 Non-patient / Non-visit Dr. Eddie Sullivan Work Phone: [facility] Work Phone: Start: 07-02-2023 Non-patient / Non-visit Dr. Eddie Sullivan Work Phone: [facility] Work Phone: Start: 07-02-2023 Non-patient / Non-visit Dr. Eddie Sullivan Work Phone: [facility] Start: 07-01-2023 Non-patient / Non-visit Dr. Eddie Sullivan Work Phone: [facility] Work Phone: Start: 07-01-2023 End: 07-03-2023 Evaluation and management of inpatient Dr. Kristal Sullivan Work Phone: [facility] Work Phone: Start: 06-27-2023 End: 06-27-[address] Kristal Sullivan Work Phone: [facility] Work Phone: Start: 06-27-2023 End: 06-27-[address] [facility] Start: 05-16-2023 End: 05-16-[address] Kristal Sullivan Work Phone: [facility] Work Phone: Start: 05-16-2023 End: 05-16-[address] Krist[facility] Start: 05-14-2023 End: 05-14-[address] Kristal Sullivan Work Phone: [facility] Work Phone: Start: 04-07-2023 End: 04-07-2023 Emergency department patient visit Dr. Kristal Sullivan Work Phone: [facility] Work Phone: Start: 07-02-2022 End: 07-02-2022 Office outpatient visit 25 minutes Yas Murray REEMAMiguelDRIVER SUPERVISOR Work Phone: [facility] Comment on above: Class 1 obesity with serious comorbidity in adult, unspecified BMI, unspecified obesity type (Primary Dx); Type 1 diabetes mellitus with other specified complication (HCC); Low blood sugar Start: 05-31-2022 End: 05-31-2022 Patient encounter procedure Kristal Sullivan MD Work Phone: [facility] [place] Comment on above: Class 1 obesity with serious comorbidity in adult, unspecified BMI, unspecified obesity type (Primary Dx); Special screening examination for viral disease; Screening for HIV (human immunodeficiency virus); Essential hypertension Start: 05-07-2022 ambulatory Kristal Ricketts Work Phone: [facility] [place] Start: 04-30-2022 Telephone encounter Kristal vance MD Work Phone: [facility] [place] Comment on above: Results Start: 04-26-2022 Telephone encounter Kristal vance MD Work Phone: [facility] [place] Comment on above: Patient Question Start: 04-26-2022 End: 04-26-2022 Patient encounter procedure Kristal Sullivan MD Work Phone: [facility] Comment on above: Type 1 diabetes jeanine itus with hyperosmolarity without coma (HCC) (Primary Dx); Gastroesophageal reflux disease without esophagitis; Essential hypertension; Class 1 obesity with serious comorbidity in adult, unspecified BMI, unspecified obesity type Start: 11-02-2021 End: 11-02-2021 Emergency department patient [facility] Krist[facility] Start: 10-08-2021 End: 10-08-[address] Kristal Sullivan Work Phone: [facility] Start: 09-04-2021 Orders Only Kristal Ricketts Work Phone: [facility] Start: 08-30-2021 Orders Only Kristal Ricketts Work Phone: [facility] Start: 07-02-2021 End: 07-02-[address] Kristal Sullivna Work Phone: [facility] [place] Start: 07-02-2021 End: 07-02-[address] Kristal Sullivan Work Phone: [facility] Start: 06-04-2021 End: 06-04-[address] Kristal Sullivan Work Phone: [facility] Start: 02-04-2020 End: 02-04-2020 Subsequent hospital visit by physician Xr [facility] Work Phone: Radiology Comment on above: Pain and swelling of toe of right foot [M79.674, M79.89] Procedures Date Procedure Procedure Detail Performing Clinician Start: 10-26-2024 Radiologic exam chest 2 views Ronen cota MD Work Phone: Start: 10-22-2024 X-ray of chest, PA and lateral views Dr. Kristal Sullivan MD Work Phone: Start: 10-22-2024 Blood count smear mcrscp w/mnl difrntl wbc count Dr. Kristal Sullivan MD Work Phone: Start: 10-22-[address] Ruth Sullivan MD Work Phone: Start: 10-22-2024 Mean corpuscular hemoglobin concentration determination Dr. Kristal Sullivan MD Work Phone: Start: 10-22-2024 Nucleated red blood cell count procedure Dr. Kristal Sullivan MD Work Phone: Start: 10-22-2024 Platelet mean volume determination Dr. Reji Sullivan MD Work Phone: Start: 10-22-2024 Serum inorganic phosphate measurement Dr. Kristal Sullivan MD Work Phone: Start: 10-19-[address] Kristal Sullivan MD Work Phone: Start: 10-19-[address] Kristal Sullivan MD Work Phone: Start: 10-19-2024 Venous oxygen saturation measurement Dr. Kristal Sullivan MD Work Phone: Start: 10-19-2024 Urine microscopy: red cells Dr. Kristal joseph MD Work Phone: Start: 10-19-2024 Urnls dip stick/tablet reagent auto microscopy Dr. Kristal Sullivan MD Work Phone: Start: 10-19-2024 X-ray of chest, PA and lateral views Dr. Kristal Sullivan MD Work Phone: Start: 10-19-2024 Blood count smear mcrscp w/mnl difrntl wbc count Dr. Kristal Sullivan MD Work Phone: Start: 10-19-2024 Calculation of international normalized ratio Dr. Kristal Sullivan MD Work Phone: Start: 10-19-[address] Ruth Sullivan MD Work Phone: Start: 10-19-2024 Mean corpuscular hemoglobin concentration determination Dr. Kristal Sullivan MD Work Phone: Start: 10-19-2024 Nucleated red blood cell count procedure Dr. Kristal Sullivan MD Work Phone: Start: 10-19-2024 Platelet mean volume determination Dr. Reji Sullivan MD Work Phone: Start: 09-21-2024 Hemoglobin A1c/Hemoglobin.total in Blood Kristal [...] r-t 2d w/wom-mode compl spec&colr d Brayan Barros DO Work Phone: Start: 08-25-2024 Glucose quantitative [...] for removal of tunneled CV catheter Josue Handley DO Work Phone: Start: 08-24-2024 Comprehensive metabolic [...] Kristal Sullivan MD Work Phone: Start: 08-23-2024 Dr. Kristal Sullivan MD Work Phone: Start: [...] Brayan Barros DO Work Phone: Start: 08-23-2024 Calculation of international normalized ratio Dr. Kristal Sullivan MD Work Phone: Start: 08-23-2024 Thyrotropin [Units/volume] in Serum or Plasma Ervin Mejia MD Work Phone: Start: 08-23-2024 Plain chest X-ray Dr. Kristal Sullivan MD Work Phone: Start: 08-23-2024 Blood count smear mcrscp w/mnl difrntl wbc count Dr. Kristal Sullivan MD Work Phone: Start: 08-23-[address] Ruth Sullivan MD Work Phone: Start: 08-23-2024 Mean corpuscular hemoglobin concentration determination Dr. Kristal Sullivan MD Work Phone: Start: 08-23-2024 Nucleated red blood cell count procedure Dr. Kristal Sullivan MD Work Phone: Start: 08-23-2024 Platelet mean volume determination Dr. Reji Sullivan MD Work Phone: Start: 08-23-2024 Serum inorganic phosphate measurement Dr. Kristal Sullivan MD Work Phone: Start: 08-23-2024 Urine microscopy: red cells Dr. Kristal joseph MD Work Phone: Start: 08-23-2024 Urnls dip stick/tablet reagent auto microscopy Dr. Kristal Sullivan MD Work Phone: Start: 08-11-2024 Cardiovascular stress test using pharmacologic stress agent Dr. Kristal Sullivan MD Work Phone: Start: 08-11-2024 Blood count smear mcrscp w/mnl difrntl wbc count Dr. Kristal Sullivan MD Work Phone: Start: 08-11-[address] Ruth Sullivan MD Work Phone: Start: 08-11-2024 Mean corpuscular hemoglobin concentration determination Dr. Kristal Sullivan MD Work Phone: Start: 08-11-2024 Nucleated red blood cell count procedure Dr. Kristal Sullivan MD Work Phone: Start: 08-11-2024 Platelet mean volume determination Dr. Reji Sullivan MD Work Phone: Start: 08-11-2024 Serum inorganic phosphate measurement Dr. Kristal Sullivan MD Work Phone: Start: 08-11-2024 Total cholesterol:HDL ratio measurement Dr. Kristal Sullivan MD Work Phone: Start: 08-10-[address] Reji Sullivan MD Work Phone: Start: 08-10-2024 CT angiography of chest with contrast Dr. Kristal Sullivan MD Work Phone: Start: 08-10-2024 X-ray of chest, PA and lateral views Dr. Kristal Sullivan MD Work Phone: Start: 08-10-2024 Calculation of international normalized ratio Dr. Kristal Sullivan MD Work Phone: Start: 08-10-[address] Ruth Sullivan MD Work Phone: Start: 07-20-2024 Repair of arteriovenous fistula by suture Dr. Kristal Sullivan MD Work Phone: Start: 07-07-[address] Ruth Sullivan MD Work Phone: Start: 07-07-2024 Mean corpuscular hemoglobin concentration determination Dr. Kristal Sullivan MD Work Phone: Start: 07-07-2024 Platelet mean volume determination Dr. Reji Sullivan MD Work Phone: Start: 04-12-2024 Myocardial [...] of coronary artery stent placement Lorraine Browne DIAMOND EXPERTAriela Plan of Treatment Date Care Activity Detail Author Start: 2057 RSV Immunization for Adults (1 - 1-dose 75+ series) RSV Immunization for Adults (1 - 1-dose 75+ series) [facility] Start: 2032 Zoster Vaccines (1 of 2) Zoster Vaccines (1 of 2) [facility] Start: 10-26-2025 Complete blood count Hemoglobin/Hematocrit [facility] Start: 10-26-2025 Creatinine measurement Serum Creatinine [facility] Start: 10-26-2025 Hepatitis B surface antibody level LDL Cholesterol [facility] Start: 09-21-2025 Annual PCP Team Chronic Disease Visit Annual PCP Team Chronic Disease Visit [facility] Start: 09-21-2025 Anxiety Screening Anxiety Screening [facility] Start: 09-21-2025 Depression Screening Depression Screening [facility] Start: 08-28-2025 Complete blood count Hemoglobin/Hematocrit [facility] Start: 08-28-2025 Creatinine measurement [facility] Start: 08-28-2025 Potassium measurement Potassium Level [facility] Start: 08-25-2025 Echocardiography Echocardiogram [facility] Start: 08-23-2025 Thyroid stimulating hormone measurement TSH Level [facility] Start: 07-13-2025 Hepatitis B Vaccines (4 of 4 - Risk Dialysis Recombivax 3-dose series) Hepatitis B Vaccines (4 of 4 - Risk Dialysis Recombivax 3-dose series) [facility] Start: 06-15-2025 Annual PCP Team Chronic Disease Visit Annual PCP Team Chronic Disease Visit [facility] Start: 06-15-2025 BP Controlled (<130/80) BP Controlled (<130/80) [facility] Start: 06-15-2025 Complete blood count Hemoglobin/Hematocrit [facility] Start: 06-15-2025 Creatinine measurement Serum Creatinine [facility] Start: 06-15-2025 Hemoglobin A1c measurement Diabetes: Hemoglobin A1C [facility] Start: 06-15-2025 Hepatitis B surface antibody level LDL Cholesterol [facility] Start: 04-28-2025 Hemoglobin A1c measurement HbA1C [facility] Start: 03-23-2025 Hemoglobin A1c measurement HbA1C [facility] Start: 12-21-2024 End: 12-21-2024 Patient encounter procedure 12/21/2024 1:40 PM EDT Office Visit [facility] Medicine [place] [address] [place], [place] [id number] Kristal Sullivan MD [address] [place], [place] [id number] 3 Month F/U [facility] [place] Comment on above: 3 Month F/U Start: 11-29-2024 Influenza vaccination [facility] Start: 10-26-2024 End: 10-26-2024 ambulatory 10/26/2024 3:45 PM EDT Procedure Cardiology [address] [id number] Organ transplant candidate [Z76.82] Cardiology Comment on above: Organ transplant candidate [Z76.82] Start: 10-26-2024 End: 10-26-2024 Patient encounter procedure 10/26/2024 3:35 PM EDT Appointment Radiology [address] [place], [place] [id number] Organ transplant candidate [Z76.82] Radiology Comment on above: Organ transplant candidate [Z76.82] Start: 10-26-2024 End: 10-26-2024 Patient encounter procedure Transplant C enter Comment on above: Organ transplant candidate [Z76.82] Start: 10-26-2024 End: 10-26-2024 Patient encounter procedure 10/26/2024 11:20 AM EDT Office Visit Internal Medicine [place] [address] [place], [place] [address] Kristal [place] MD [address] [place], [place] [id number] HOSPITAL DISCHARGE [facility] Internal Medicine [place] Comment on above: HOSPITAL DISCHARGE [facility] Start: 10-26-2024 End: 10-26-2024 Social Work [facility] Comment on above: Organ transplant candidate [Z76.82] Start: 10-22-2024 Patient discharge [facility] Start: 10-22-2024 End: 10-22-2024 [facility] Start: 10-22-2024 Hemodialysis care [facility] Start: 10-21-2024 End: 10-21-2024 [facility] Start: 10-21-2024 Hemodialysis care [facility] Start: 10-20-2024 End: 10-20-2024 [facility] Start: 10-20-2024 Hemodialysis care [facility] Start: 10-20-2024 Continuous positive airway pressure ventilation treatment [facility] Start: 10-19-2024 Blood culture [facility] Start: 10-19-2024 End: 10-19-2024 [facility] Start: 10-19-2024 Hemodialysis care [facility] Start: 10-19-2024 Application of intermittent pneumatic compression device [facility] Start: 10-19-2024 Following clinical pathway protocol [facility] Start: 10-19-2024 Ambulation without limitation [facility] Start: 10-19-2024 Assessment of risk of venous thromboembolism [facility] Start: 10-19-2024 Insertion of catheter into peripheral vein [facility] Start: 10-19-2024 Measuring intake and output [facility] Start: 10-19-2024 Oxygen therapy [facility] Start: 10-19-2024 Providing care according to standard [facility] Start: 10-19-2024 Referral to manager green [facility] Start: 10-19-2024 Verification routine [facility] Start: 10-19-2024 Admission procedure [facility] Start: 10-19-2024 Hospital admission, emergency, from emergency room, medical nature [facility] Start: 10-19-2024 End: 10-19-2024 [facility] Start: 10-19-2024 Patient referral to dietitian [facility] Start: 10-14-2024 End: 10-14-2024 ambulatory 10/14/2024 9:[address] [facility] [address] [address] Organ transplant candidate [Z76.82] Transplant Center Comment on above: Organ transplant candidate [Z76.82] Start: 10-12-2024 End: 09-01-2025 ECG COMPLETE ECG COMPLETE ECG Routine Organ transplant candidate ESRD on dialysis (HCC) Pre-transplant evaluation for ESRD (end stage renal disease) Pre-operative cardiovascular examination Expected: 10/12/2024 (Approximate), Expires: 09/01/[address] [facility] Work Phone: Comment on above: Expected: 10/12/2024 (Approximate), Expi res: 09/01/2025 Start: 10-12-2024 End: 10-01-2025 XR Chest PA and Lateral XR CHEST 2V FRONTAL/LAT Radiology Routine Organ transplant candidate ESRD on dialysis (HCC) Pre-transplant evaluation for ESRD (end stage renal disease) Pre-operative cardiovascular examination Expected: 10/12/2024 (Approximate), Expires: 10/01/2025 [facility] Comment on above: Expected: 10/12/2024 (Approximate), Expi res: 10/01/2025 Start: 09-21-2024 End: 09-21-2024 Patient encounter procedure 09/21/2024 11:40 AM EDT Office Visit [facility] [address] [place] [address] Kristal Sullivan MD [address] [place] [address] 3 month follow u [facility] Comment on above: 3 month follow u Start: 09-15-2024 [facility]c [facility] Start: 08-31-2024 Egd insert guide wire dilator passage esophagus [facility] Start: 08-31-2024 Egd transoral biopsy single/multiple [facility] Start: 08-31-2024 Patient discharge [facility] Start: 08-27-2024 Complete blood count Hemoglobin/Hematocrit [facility] Start: 08-27-2024 Creatinine measurement Serum Creatinine [facility] Start: 08-23-2024 Bacteria identified in Blood by Culture Blood Culture [facility] Start: 08-23-2024 Bacteria identified in Urine by Culture Urine Culture [facility] Start: 08-23-2024 Blood culture Blood Culture [facility] Start: 08-23-2024 [facility] Start: 08-23-2024 End: 08-23-2024 [facility] Start: 08-11-2024 Patient discharge [facility] Start: 08-11-2024 Care of hemodialysis equipment [facility] Start: 08-11-2024 Hemodialysis care [facility] Start: 08-11-2024 [facility] Start: 08-11-2024 Following clinical pathway protocol [facility] Start: 08-11-2024 Ambulation without limitation [facility] Start: 08-11-2024 Assessment of risk of venous thromboembolism [facility] Start: 08-11-2024 Catheterization of vein [facility] Start: 08-11-2024 Inhalation therapy procedure [facility] Start: 08-11-2024 Insertion of catheter into peripheral vein [facility] Start: 08-11-2024 Measuring intake and output [facility] Start: 08-11-2024 Oxygen therapy [facility] Start: 08-11-2024 Patient referral to dietitian [facility] Start: 08-11-2024 Providing care according to standard [facility] Start: 08-11-2024 Referral to manager green [facility] Start: 08-11-2024 Referral to service [facility] Start: 08-11-2024 Tobacco use cessation education [facility] Start: 08-10-2024 End: 08-11-2024 [facility] Start: 08-10-2024 Triacylglycerol lipase measurement [facility] Start: 08-10-2024 Electrocardiographic procedure [facility] Start: 08-10-2024 Verification routine [facility] Start: 08-10-2024 Admission procedure [facility] Start: 08-10-2024 Hospital admission, emergency, from emergency room, medical nature [facility] Start: 08-10-2024 [facility] Start: 07-20-2024 Patient discharge [facility] Start: 07-20-2024 Anesthesia arteries forearm wrist & hand nos [facility] Start: 07-20-2024 Lig/banding angioaccess arteriovenous fistula [facility] Start: 07-07-2024 Patient discharge [facility] Start: 06-15-2024 End: 06-15-2024 Patient encounter procedure 06/15/2024 1:00 PM EDT Office Visit Internal Medicine [address] [address] Kristal Sullivan MD [address] [place] [address] physical Internal Medicine [place] Comment on above: physical Start: 04-12-2024 End: 04-12-2024 Nursing evaluation of patient and report 04/12/2024 9:45 AM EST Nurse Visit Cardiology [address] [place] [address] Wstr, Nurse Card Admin [facility] [address] [place] [address] Encounter for other preprocedural examination [Z01.818 Cardiology Comment on above: Encounter for other preprocedural examin ation [Z01.818 Start: 04-12-2024 End: 04-12-2024 Nursing evaluation of patient and report 04/12/2024 8:15 AM EST Nurse Visit Cardiology [address] [place] [id number] Wstr, Nurse Card Admin [facility] [address] [place] [address] Encounter for other preprocedural examination [Z01.818] Cardiology Comment on above: Encounter for other preprocedural examin ation [Z01.818] Start: 04-12-2024 End: 04-12-2024 Patient encounter procedure [facility] Comment on above: Encounter for other preprocedural examin ation [Z01.818] Encounter for other preprocedural examination [Z01.818 Start: 11-30-2023 Covid-19 Vaccine ( season) Covid-19 Vaccine ( season) [facility] Start: 11-30-2023 Influenza vaccination [facility] Start: 11-28-2023 Hemoglobin A1c [facility] Start: 11-17-2023 End: 11-17-2023 Nursing evaluation of patient and report 11/17/2023 9:15 AM EDT Nurse Visit Cardiology [address] [place] [id number] Wstr, Nurse Card Admin [facility] [address] [place], [place] [address] Encounter for other preprocedural examination [Z01.8 Cardiology Comment on above: Encounter for other preprocedural examin ation [Z01.8 Start: 11-17-2023 End: 11-17-2023 Patient encounter procedure [facility] Comment on above: Encounter for other preprocedural examin ation [Z01.8 Start: 08-28-2023 End: 08-28-2023 ambulatory 08/28/2023 4:45 PM EDT Results Only [place] [address] [address] [place] [address] K/P EVAL FAST TRAK [place] [address] [address] Comment on above: K/P EVAL FAST TRAK Start: 08-28-2023 End: 08-28-2023 Patient encounter procedure Transplant C enter Comment on above: K/P EVAL FAST TRAK Start: 08-28-2023 End: 08-28-2023 ambulatory 08/28/2023 2:30 PM EDT Education [facility]ive [facility] [address] [place] [address] [address], [address] [place], [place] [phone] K/P EVAL FAST TRAK [facility] Comment on above: K/P EVAL FAST TRAK Start: 08-28-2023 End: 08-28-2023 Patient encounter procedure Radiology Comment on above: K/P EVAL FAST TRAK Start: 08-28-2023 End: 08-28-2023 Patient encounter procedure Transplant C enter Comment on above: K/P EVAL FAST TRAK Start: 08-21-2023 End: 08-21-2023 ambulatory 08/21/2023 8:[address] [facility] [address] [address] K/P EVAL FAST TRAK Transplant Center Comment on above: K/P EVAL FAST TRAK Start: 08-07-2023 End: 08-29-2024 CT Abdomen and Pelvis WO contrast CT ABD/PEL WO IVCON Radiology Routine Chronic renal failure, stage 4 (severe) (HCC) Pre-transplant evaluation for kidney and pancreas transplant Expected: 08/07/2023, Expires: 08/29/[address] [facility] Work Phone: Comment on above: Expected: 08/07/2023, Expires: Start: 08-01-2023 Patient discharge [facility] Start: 07-04-2023 Blood chemistry [facility] Start: 07-03-2023 Patient discharge [facility] Start: 07-03-2023 Blood chemistry [facility] Start: 07-01-2023 Following clinical pathway protocol [facility] Start: 07-01-2023 Ambulation without limitation [facility] Start: 07-01-2023 Application of elastic bandage [facility] Start: 07-01-2023 Assessment of risk of venous thromboembolism [facility] Start: 07-01-2023 Elevation of affected extremity [facility] Start: 07-01-2023 Incentive spirometry [facility] Start: 07-01-2023 Insertion of catheter into peripheral vein [facility] Start: 07-01-2023 Measuring intake and output [facility] Start: 07-01-2023 Notification of physician [facility] Start: 07-01-2023 Oxygen therapy [facility] Start: 07-01-2023 Patient education [facility] Start: 07-01-2023 Providing care according to standard [facility] Start: 07-01-2023 Referral to manager green [facility] Start: 07-01-2023 [facility] Start: 07-01-2023 Urinalysis complete panel - Urine [facility] Start: 07-01-2023 Verification routine [facility] Start: 07-01-2023 Admission procedure [facility] Start: 07-01-2023 Hospital admission, emergency, from emergency room, medical nature [facility] Start: 06-01-2023 ANNUAL PCP TEAM CHRONIC DISEASE VISIT ANNUAL PCP TEAM CHRONIC DISEASE VISIT [facility] Start: 06-01-2023 Hepatitis B screening URINE ALBUMIN:CREATININE RATIO [facility] Start: 06-01-2023 Hepatitis B surface antibody level LDL CHOLESTEROL [facility] Start: 04-26-2023 ANNUAL PCP TEAM CHRONIC DISEASE VISIT ANNUAL PCP TEAM CHRONIC DISEASE VISIT [facility] Start: 03-31-2023 Behavioral Health Screening Behavioral Health Screening [facility] Start: 11-29-2022 Covid-19 Vaccine ( season) Covid-19 Vaccine ( season) [facility] Start: 11-29-2022 Influenza vaccination INFLUENZA (Season Ended) [facility] Start: 10-24-2022 Hemoglobin A1c measurement [facility]C [facility] Start: 10-24-2022 Hemoglobin A1c/Hemoglobin.total in Blood HBA1C [facility] Start: 05-07-2022 End: 07-07-2022 ALBUMIN/CREAT RATIO RND UR ALBUMIN/CREAT RATIO RND UR Lab Routine Type 1 diabetes mellitus with hyperosmolarity without coma (HCC) Expected: 05/07/2022, Expires: 07/07/[address] [facility] Work Phone: Comment on above: Expected: 05/07/2022, Expires: 3 Start: 05-07-2022 End: 07-07-2022 Lipid 1996 panel - Serum or Plasma LIPID PANEL BASIC Lab Routine Mixed hyperlipidemia Expected: 05/07/2022, Expires: 07/07/[address] [facility] Work Phone: Comment on above: Expected: 05/07/2022, Expires: 3 Start: 05-07-2022 End: 07-07-2022 SCHEDULE LAB TESTING SCHEDULE LAB TESTING Lab Routine Expected: 05/07/2022, Expires: 07/07/[address] [facility] Work Phone: Comment on above: Expected: 05/07/2022, Expires: Start: 04-26-2022 End: 06-26-2022 Comprehensive metabolic 2000 panel - Serum or Plasma [facility] Work Phone: Comment on above: Expected: 04/26/2022, Expires: 3 Start: 04-26-2022 End: 06-26-2022 Thyrotropin [Units/volume] in Serum or Plasma [facility] Work Phone: Comment on above: Expected: 04/26/2022, Expires: 3 Start: 03-31-2022 DEPRESSION ASSESSMENT DEPRESSION ASSESSMENT [facility] Start: 03-14-2022 ANNUAL PCP TEAM CHRONIC DISEASE VISIT ANNUAL PCP TEAM CHRONIC DISEASE VISIT [facility] Start: 11-29-2021 Influenza vaccination [facility] Start: 05-12-2021 Hemoglobin A1c/Hemoglobin.total in Blood HBA1C [facility] Start: 02-03-2021 3 comp foot exam completed DIABETIC FOOT EXAM [facility] Start: 02-03-2021 Diabetic foot examination Diabetic Foot Exam [facility] Start: 09-16-2020 Glaucoma screening Dilated Retinal Exam [facility] Start: 09-16-2020 Hepatitis C antibody, confirmatory test DILATED RETINAL EXAM [facility] Start: 04-23-2020 Hepatitis B screening URINE ALBUMIN:CREATININE RATIO [facility] Start: 11-21-2019 Adult depression screening assessment DEPRESSION SCREENING [facility] Start: 07-18-2019 Hepatitis B surface antibody level LDL CHOLESTEROL [facility] Start: 01-02-2019 DTaP/Tdap/Td Vaccines (1 - Tdap) DTaP/Tdap/Td Vaccines (1 - Tdap) [facility] Start: 01-02-[address] [facility] Start: 07-30-2011 PNEUMOCOCCAL (2 - PCV) PNEUMOCOCCAL (2 - PCV) [facility] Start: 07-30-2011 Pneumococcal vaccination Pneumococcal Vaccine (2 of 2 - PCV) [facility] Start: 07-30-2011 Pneumococcal Vaccine: Pediatrics (0 to 5 Years) and At-Risk Patients (6 to 49 Years) (2 of 2 - PCV) Pneumococcal Vaccine: Pediatrics (0 to 5 Years) and At-Risk Patients (6 to 49 Years) (2 of 2 - PCV) [facility] Start: 2009 HPV Vaccine (1 - 3-dose SCDM series) HPV Vaccine (1 - 3-dose SCDM series) [facility] Start: 2001 Hepatitis A Vaccine (1 of 2 - Risk 2-dose series) Hepatitis A Vaccine (1 of 2 - Risk 2-dose series) [facility] Start: 2001 HEPATITIS B (1 of 3 - Risk 3-dose series) HEPATITIS B (1 of 3 - Risk 3-dose series) [facility] Start: 2001 Hepatitis B Vaccine (1 of 3 - 19+ 3-dose series) Hepatitis B Vaccine (1 of 3 - 19+ 3-dose series) [facility] Start: 2001 Shingrix Vaccine (1 of 2) Shingrix Vaccine (1 of 2) [facility] Start: 2000 Anxiety Screening Anxiety Screening [facility] Start: 2000 BP CONTROLLED (<130/80) BP CONTROLLED (<130/80) [facility] Start: 2000 Depression Screening Depression Screening [facility] Start: 2000 HEPATITIS C SCREENING HEPATITIS C SCREENING [facility] Start: 2000 Hepatitis C screening Hepatitis C Screening [facility] Start: 2000 HIV SCREENING HIV SCREENING [facility] Start: 2000 HIV screening HIV Screening [facility] Start: 08-04-1995 Varicella vaccination Varicella Vaccines (1 of 2 - 13+ 2-dose series) [facility] Start: 1994 Depression Screening Depression Screening [facility] Start: 1992 Diabetic foot examination Diabetes: Foot Exam [facility] Start: 1992 Glaucoma screening Diabetes: Retinopathy Screening [facility] Start: 1992 Preventive dental service Diabetes: Dental Exam [facility] Start: 08-04-1987 COVID-19 VACCINE (#1) COVID-19 VACCINE (#1) [facility] Start: 08-04-1983 MMR Vaccines (1 of 1 - Standard series) MMR Vaccines (1 of 1 - Standard series) [facility] Start: 02-03-1983 COVID-19 VACCINE (#1) COVID-19 VACCINE (#1) [facility] Start: 1982 Cyanocobalamin vitamin b-12 Vitamin B-12 [facility] Start: 1982 Diabetes: Celiac Disease Screening Diabetes: Celiac Disease Screening [facility] Start: 1982 HEPATITIS B (1 of 3 - 3-dose series) HEPATITIS B (1 of 3 - 3-dose series) [facility] Start: 1982 HIV screening HIV Screening [facility] Start: 1982 Lipid panel Lipid Panel [facility] End: 08-28-2023 ALLOGEN SOT REC RPT [facility] Comment on above: ONCE for 1 Occurrences starting 08/28/19 24 until 08/28/2023 Anion gap measurement [facility] Anion gap measurement [facility] Bacteria identified in Blood by Culture [facility] [employer] Work Phone: BUN/Creatinine ratio [facility] BUN/Creatinine ratio [facility] Calcium [Mass/volume ] in Serum or Plasma [facility] Calcium [Mass/volume ] in Serum or Plasma [facility] Carbon dioxide, tota l [Moles/volume] in Serum or Plasma [facility] Carbon dioxide, tota l [Moles/volume] in Serum or Plasma [facility] End: 05-28-2025 CBC panel - Blood by Automated count COMPLETE BLOOD COUNT Lab Routine Type 1 diabetes mellitus with other specified complication (HCC) Every 6 months for 12 Occurrences starting 05/28/2024 until 05/28/2025 [facility] Comment on above: Every 6 months for 12 Occurrences starti ng 05/28/2024 until 05/28/2025 Chloride [Moles/volu me] in Serum or Plasma [facility] Chloride [Moles/volu me] in Serum or Plasma [facility] End: 05-28-2025 Comprehensive metabolic 2000 panel - Serum or Plasma COMPREHENSIVE METABOLIC PANEL Lab Routine Type 1 diabetes mellitus with other specified complication (HCC) Every 6 months for 12 Occurrences starting 05/28/2024 until 05/28/2025 [facility] Comment on above: Every 6 months for 12 Occurrences starti ng 05/28/2024 until 05/28/2025 Creatinine [Moles/vo lume] in Serum or Plasma [facility] Creatinine [Moles/vo lume] in Serum or Plasma [facility] Glucose [Mass/volume ] in Serum or Plasma [facility] Glucose [Mass/volume ] in Serum or Plasma [facility] End: 05-28-2025 Hemoglobin A1c in Blood HEMOGLOBIN A1C Lab Routine Type 1 diabetes mellitus with other specified complication (HCC) Every 3 months for 24 Occurrences starting 05/28/2024 until 05/28/[address] [facility] Work Phone: Comment on above: Every 3 months for 24 Occurrences starti ng 05/28/2024 until 05/28/2025 Hemoglobin A1c/Hemoglobin.total in Blood HEMOGLOBIN A1C (POC) Lab Routine Type 1 diabetes mellitus with hyperosmolarity without coma (HCC) Ordered: 04/26/[address] [facility] Work Phone: Comment on above: Ordered: 04/26/2022 End: 05-28-2025 Lipid 1996 panel - Serum or Plasma LIPID PANEL BASIC Lab Routine Type 1 diabetes mellitus with other specified complication (HCC) Every 6 months for 12 Occurrences starting 05/28/2024 until 05/28/2025 [facility] Comment on above: Every 6 months for 12 Occurrences starti ng 05/28/2024 until 05/28/2025 Measurement of renal function [facility] Measurement of renal function [facility] End: 09-26-2024 NM Heart Perfusion W stress and W radionuclide IV NM CARDIAC PERF STRESS/PHARM Radiology Routine Encounter for other preprocedural examination 1 Occurrences starting 08/28/2023 until 09/26/[address] [facility] Work Phone: Comment on above: 1 Occurrences starting 08/28/2023 until 09/26/2024 Patient Education [facility] Work Phone: Patient referral [facility] Work Phone: Potassium [Moles/vol ume] in Serum or Plasma [facility] Potassium [Moles/vol ume] in Serum or Plasma [facility] Radiologic exam esop hagus double contrast study [facility] Sodium [Moles/volume ] in Serum or Plasma [facility] Sodium [Moles/volume ] in Serum or Plasma [facility] End: 05-28-2025 Thyrotropin [Units/volume] in Serum or Plasma THYROID STIMULATING HORMONE Lab Routine Type 1 diabetes mellitus with other specified complication (HCC) Every 3 months for 24 Occurrences starting 05/28/2024 until 05/28/2025 [facility] Comment on above: Every 3 months for 24 Occurrences starti ng 05/28/2024 until 05/28/2025 Troponin T.cardiac [Mass/volume] in Serum or Plasma by High sensitivity method [facility] Urea nitrogen [Mass/ volume] in Serum or Plasma [facility] Urea nitrogen [Mass/ volume] in Serum or Plasma [facility] Urine culture [facility] Urine culture [facility] US AV fistula [facility] Immunizations Immunization Date Immunization Notes Care Provider Nilson sherwood 09-21-2024 pneumococcal conjuga te (PCV20) vaccine, 20 valent (PREVNAR 20) Kristal Sullivan MD Work Phone: [facility] 09-21-2024 pneumococcal Conjuga te, unspecified formulation Kristal Sullivan MD Work Phone: [facility] Work Phone: 09-06-2024 Hepatitis B vaccine (recombinant), CpG adjuvanted Ronen Eldridge MD Work Phone: [facility] 07-13-2024 Hepatitis B vaccine (recombinant), CpG adjuvanted Roro Pollard RN [facility] 06-07-2024 Hepatitis B vaccine (recombinant), CpG adjuvanted Roro Pollard RN [facility] 05-10-2024 Hepatitis B vaccine (recombinant), CpG adjuvanted Roro Pollard RN [facility] Work Phone: 01-01-2019 influenza, injectabl e, quadrivalent, contains preservative Kristal Sullivan MD Work Phone: [facility] 01-01-2019 tetanus and diphther ia toxoids, adsorbed, preservative free, for adult use (5 Lf of tetanus toxoid and 2 Lf of diphtheria toxoid) Kristal Sullivan MD Work Phone: [facility] 01-01-2019 influenza virus vacc ine, unspecified formulation Concha Araiza [facility] 02-09-2018 influenza, injectabl e, quadrivalent, preservative free Dr. Kristal Sullivan Work Phone: [facility] 02-09-2018 influenza, seasonal, injectable Dr. Kristal Sullivan Work Phone: [facility] Work Phone: 02-09-2018 influenza, seasonal, injectable, preservative free Cecilia Rodriguez RN [facility] 01-20-2017 influenza, injectabl e, quadrivalent, contains preservative Kristal Sullivan MD Work Phone: [facility] Work Phone: 12-18-2015 tetanus and diphther ia toxoids, adsorbed, preservative free, for adult use (2 Lf of tetanus toxoid and 2 Lf of diphtheria toxoid) Dr. Kristal Sullivan Work Phone: [facility] 12-30-2011 influenza virus vacc ine, unspecified formulation Kristal Sullivan MD Work Phone: [facility] Work Phone: 07-29-2010 pneumococcal polysaccharide vaccine, 23 valent Kristal Sullivan MD Work Phone: [facility] Work Phone: Payers Date Payer Category Payer Medicaid [facility] [id number] 2023 Unknown [id number] 2023 Self-pay [id number] 2018 Medicaid [facility] [id number] 2018-Present [phone] [address] [place] [address] Medicaid [id number] 2018 Medicaid [id number]. [id number] 2015 Unknown [id number] 2015 Unknown [id number] 1982 Unknown [id number] 2.16.840.1.135790.3.579.2.627 Unknown [id number] 2.16.840.1.528660.3.579.2.462 Unknown [id number] 2.16.840.1.225693.3.579.2.462 Unknown [id number] 2.16.840.1.461549.3.579.2.462 Unknown [id number] 2.16.840.1.084084.3.579.2.462 Unknown [id number] 2.16.840.1.889102.3.579.2.462 Unknown [id number] 2.16.840.1.564025.3.579.2.462 Unknown [id number] 2..840.1.501001.3.579.2.462 Unknown [id number] 2.16.840.1.974700.3.579.2.462 Unknown [id number] 2.16.840.1.264716.3.579.2.462 Unknown [id number] 2.16.840.1.700068.3.579.2.462 Unknown [id number] 2.840.1.012112.3.579.2.462 Unknown [id number] 2.16.840.1.446419.3.579.2.462 Unknown [id number] 2.16.840.1.104534.3.579.2.462 Unknown [id number] 2.16.840.1.958074.3.579.2.462 Unknown [id number] 2.16.840.1.168512.3.579.2.462 Unknown [id number] 2.16.840.1.755634.3.579.2.462 Unknown [id number] 2.16.840.1.696345.3.579.2.462 Unknown [id number] 2.16.840.1.098496.3.579.2.462 Unknown [id number] 2.16.840.1.027286.3.579.2.462 Unknown [id number] 2.16.840.1.389365.3.579.2.462 Unknown [id number] 2.16.840.1.418029.3.579.2.462 Unknown [id number] 2.16.840.1.953317.3.579.2.462 Unknown [id number] 2.840.1.039453.3.579.2.462 Unknown [id number] 2.16.840.1.711315.3.579.2.462 Unknown [id number] 2.16.840.1.717212.3.579.2.462 Unknown [id number] 2.840.1.473744.3.579.2.462 Unknown [id number] 2.16.840.1.760547.3.579.2.462 Unknown [id number] 2.16.840.1.362064.3.579.2.462 Unknown [id number] 2.16.840.1.499825.3.579.2.462 Unknown [id number] 2.16.840.1.691266.3.579.2.462 Unknown [id number] 2.16.840.1.328784.3.579.2.462 Unknown [id number] 2.16.840.1.850714.3.579.2.462 Unknown [id number] 2.16.840.1.780314.3.579.2.462 Unknown [id number] 2.16.840.1.728146.3.579.2.462 Unknown [id number] 2.16.840.1.753890.3.579.2.462 Unknown [id number] 2.840.1.685959.3.579.2.462 Unknown [id number] 2.840.1.050805.3.579.2.462 Unknown [id number] 2.840.1.152194.3.579.2.462 Unknown [id number] 2.840.1.583347.3.579.2.462 Unknown [id number] 2.840.1.713312.3.579.2.462 Unknown [id number] 2.840.1.336525.3.579.2.462 Unknown [id number] 2.840.1.158421.3.579.2.462 Unknown [id number] 2.840.1.776020.3.579.2.462 Unknown [id number] 2.840.1.203789.3.579.2.462 Unknown [id number] 2.840.1.125220.3.579.2.462 Unknown [id number] 2.840.1.045124.3.579.2.462 Unknown [id number] 2.840.1.503776.3.579.2.462 Unknown [id number] 2.840.1.055518.3.579.2.462 Unknown [id number] 2.840.1.811881.3.579.2.462 Unknown [id number] 2.840.1.665347.3.579.2.462 Unknown [id number] 2.840.1.818595.3.579.2.462 Unknown [id number] 2.840.1.109526.3.579.2.462 Unknown [id number] 2.840.1.808589.3.579.2.462 Unknown [id number] 2.16.840.1.398311.3.579.2.462 Unknown [id number] 2.16.840.1.507398.3.579.2.462 Unknown [id number] 2.16.840.1.741318.3.579.2.462 Unknown [id number] 2.16.840.1.674061.3.579.2.462 Unknown [id number] 2.16.840.1.168753.3.579.2.462 Unknown [id number] 2.16.840.1.783311.3.579.2.462 Unknown [id number] 2.16.840.1.537640.3.579.2.462 Unknown [id number] 2.16.840.1.643393.3.579.2.462 Unknown [id number] 2.16.840.1.369425.3.579.2.462 Unknown [id number] 2.16.840.1.618028.3.579.2.462 Social History Date Type Detail Facility Start: 07-02-2021 End: 08-01-2023 Tobacco smoking status MSIS Unknown if ever smoked [facility] Start: 11-13-2019 None [facility] Start: 01-16-2020 With Family [facility] Start: 10-10-2020 Non-smoker [facility] Start: 1980 Sex Assigned At Male [facility] Start: 04-26-2022 End: 10-19-2024 Tobacco smoking status MSIS Never smoked tobacco [facility] Start: 03-14-2021 End: 09-21-2024 Alcohol intake Current non-drinker of alcohol (finding) [facility] Start: 1980 Sex Assigned At Not on file [facility] Start: 04-26-2022 End: 08-23-2024 Tobacco use and exposure Smokeless tobacco non-user [facility] Work Phone: Start: 07-02-2022 History SDOH Alcohol Frequency 1 [facility] Start: 07-02-2022 History SDOH Alcohol Std Drinks 0 [facility] Start: 07-02-2022 History SDOH Social Connections Phone 5 [facility] Start: 07-02-2022 History SDOH Social Connections Evangelical 3 [facility] Start: 07-02-2022 History SDOH Social Connections Living 8 [facility] Start: 07-02-2022 History SDOH Transport Med 2 [facility] Start: 07-02-2022 End: 09-21-2024 History of Social function [facility] Start: 07-02-2022 End: 09-21-2024 Social connection and isolation panel [facility] Do you belong to any clubs or organizations such as confucianism groups, unions, fraternal or athletic groups, or school groups? Yes [facility] Are you now , , , , never or living with a partner? Living with partner [facility] How often to you hav e a drink containing alcohol? Never [facility] Start: 03-01-[address] inks containing alcohol do you have on a typical day? Patient does not drink [facility] Do you feel stress - tense, restless, nervous, or anxious, or unable to sleep at night because your mind is troubled all the time - these days [OSQ] Not at all [facility] (I/We) worried whesandra er (my/our) food would run out before (I/we) got money to buy more. Never true [facility] In the past 12 month s, was there a time when you were not able to pay the mortgage or rent on time? No [facility] Tobacco smoking status No Smokin g Status Entered [facility] Start: 01-05-2020 End: 02-04-2020 Exposure to SARS-CoV-2 (event) Not sure [facility] Start: 06-21-2024 End: 08-23-2024 Sex Male (finding) [facility] Start: 08-23-2024 Alcoholic beverage intake Life time non-drinker (finding) [facility] Medical Equipment Procedure Code Equipment Code Equipment Origin al Text Equipment Identifier Dates Insertion, catheter, hemodialysis [id number] [facility] Start: 01-30-2024 Creation, AV fistula [id number] FDA Start: 08-01-2023 Creation, AV fistula [id number])107 [id number] FDA Start: 08-01-2023 Creation, AV fistula [id number])107 [id number] FDA Start: 08-01-2023 Creation, AV fistula [id number])107 [id number] FDA Start: 08-01-2023 Pen Needle, Diabetic (Bd Ultra-Fine Carol Pen Needle) 32 gauge x 5/32 needle Start: 10-10-2020 Pen Needle, Diabetic (Bd Ultra-Fine Carol Pen Needle) 32 gauge x 5/32 needle Start: 01-07-2020 End: 10-10-2020 [id number], [id number], [id number], [id number] Start: 07-24-2016 End: 09-21-2024 Comment on above: 1 Strip as directed. DX E10.65 E10.3599 Test blood sugar 10 times daily . Dx. E10.3599 E10.65, Insulin: yes Use one needle for e ach dose. 7/day. Test blood sugar fou r times daily 250.00 Blood Sugar Diagnostic (Freestyle Lite Strips) strip Start: 10-08-2021 Lancing Device With Lancets (Onetouch Delica Plus Lanc Dev) kit Start: 10-08-2021 Pen Needle, Diabetic (Bd Ultra-Fine Carol Pen Needle) 32 gauge x 5/32 needle Start: 10-10-2020 Pen Needle, Diabetic (Bd Ultra-Fine Carol Pen Needle) 32 gauge x 5/32 needle Start: 01-07-2020 End: 10-10-2020 Blood Sugar Diagnostic (Freestyle Lite Strips) strip Start: 10-08-2021 Lancing Device With Lancets (Onetouch Delica Plus Lanc Dev) kit Start: 11-26-2021 Pen Needle, Diabetic (Bd Ultra-Fine Carol Pen Needle) 32 gauge x 5/32 needle Start: 02-26-2022 Lancing Device With Lancets (Onetouch Delica Plus Lanc Dev) kit Start: 10-08-2021 End: 11-26-2021 Pen Needle, Diabetic (Bd Ultra-Fine Carol Pen Needle) 32 gauge x 5/32 needle Start: 01-07-2020 End: 10-10-2020 Pen Needle, Diabetic (Bd Ultra-Fine Carol Pen Needle) 32 gauge x 5/32 needle Start: 10-10-2020 End: 02-26-2022 Blood Sugar Diagnostic (Freestyle Lite Strips) strip Start: 10-08-2021 Lancing Device With Lancets (Onetouch Delica Plus Lanc Dev) kit Start: 11-26-2021 Pen Needle, Diabetic (Bd Ultra-Fine Carol Pen Needle) 32 gauge x 5/32 needle Start: 02-26-2022 Lancing Device With Lancets (Onetouch Delica Plus Lanc Dev) kit Start: 10-08-2021 End: 11-26-2021 Pen Needle, Diabetic (Bd Ultra-Fine Carol Pen Needle) 32 gauge x 5/32 needle Start: 01-07-2020 End: 10-10-2020 Pen Needle, Diabetic (Bd Ultra-Fine Carol Pen Needle) 32 gauge x 5/32 needle Start: 10-10-2020 End: 02-26-2022 Blood Sugar Diagnostic (Freestyle Lite Strips) strip Start: 10-08-2021 Lancing Device With Lancets (Onetouch Delica Plus Lanc Dev) kit Start: 11-26-2021 Pen Needle, Diabetic (Bd Ultra-Fine Carol Pen Needle) 32 gauge x 5/32 needle Start: 02-26-2022 Lancing Device With Lancets (Onetouch Delica Plus Lanc Dev) kit Start: 10-08-2021 End: 11-26-2021 Pen Needle, Diabetic (Bd Ultra-Fine Carol Pen Needle) 32 gauge x 5/32 needle Start: 01-07-2020 End: 10-10-2020 Pen Needle, Diabetic (Bd Ultra-Fine Carol Pen Needle) 32 gauge x 5/32 needle Start: 10-10-2020 End: 02-26-2022 Blood Sugar Diagnostic (Freestyle Lite Strips) strip Start: 10-08-2021 Lancing Device With Lancets (Onetouch Delica Plus Lanc Dev) kit Start: 11-26-2021 Pen Needle, Diabetic (Bd Ultra-Fine Carol Pen Needle) 32 gauge x 5/32 needle Start: 02-26-2022 Lancing Device With Lancets (Onetouch Delica Plus Lanc Dev) kit Start: 10-08-2021 End: 11-26-2021 Pen Needle, Diabetic (Bd Ultra-Fine Carol Pen Needle) 32 gauge x 5/32 needle Start: 01-07-2020 End: 10-10-2020 Pen Needle, Diabetic (Bd Ultra-Fine Carol Pen Needle) 32 gauge x 5/32 needle Start: 10-10-2020 End: 02-26-2022 Blood Sugar Diagnostic (Freestyle Lite Strips) strip Start: 10-08-2021 Lancing Device With Lancets (Onetouch Delica Plus Lanc Dev) kit Start: 11-26-2021 Pen Needle, Diabetic (Bd Ultra-Fine Carol Pen Needle) 32 gauge x 5/32 needle Start: 02-26-2022 Lancing Device With Lancets (Onetouch Delica Plus Lanc Dev) kit Start: 10-08-2021 End: 11-26-2021 Pen Needle, Diabetic (Bd Ultra-Fine Carol Pen Needle) 32 gauge x 5/32 needle Start: 01-07-2020 End: 10-10-2020 Pen Needle, Diabetic (Bd Ultra-Fine Carol Pen Needle) 32 gauge x 5/32 needle Start: 10-10-2020 End: 02-26-2022 Blood Sugar Diagnostic (Freestyle Lite Strips) strip Start: 10-08-2021 Lancing Device With Lancets (Onetouch Delica Plus Lanc Dev) kit Start: 11-26-2021 Pen Needle, Diabetic (Bd Ultra-Fine Carol Pen Needle) 32 gauge x 5/32 needle Start: 02-26-2022 Lancing Device With Lancets (Onetouch Delica Plus Lanc Dev) kit Start: 10-08-2021 End: 11-26-2021 Pen Needle, Diabetic (Bd Ultra-Fine Carol Pen Needle) 32 gauge x 5/32 needle Start: 01-07-2020 End: 10-10-2020 Pen Needle, Diabetic (Bd Ultra-Fine Carol Pen Needle) 32 gauge x 5/32 needle Start: 10-10-2020 End: 02-26-2022 Blood Sugar Diagnostic (Freestyle Lite Strips) strip Start: 10-08-2021 Lancing Device With Lancets (Onetouch Delica Plus Lanc Dev) kit Start: 11-26-2021 Pen Needle, Diabetic (Bd Ultra-Fine Carol Pen Needle) 32 gauge x 5/32 needle Start: 02-26-2022 Lancing Device With Lancets (Onetouch Delica Plus Lanc Dev) kit Start: 10-08-2021 End: 11-26-2021 Pen Needle, Diabetic (Bd Ultra-Fine Carol Pen Needle) 32 gauge x 5/32 needle Start: 01-07-2020 End: 10-10-2020 Pen Needle, Diabetic (Bd Ultra-Fine Carol Pen Needle) 32 gauge x 5/32 needle Start: 10-10-2020 End: 02-26-2022 [id number] [facility] Start: 01-23-2024 Blood Sugar Diagnostic (Freestyle Lite Strips) strip Start: 10-08-2021 Insulin Syringe-Needle U-100 (Bd Insulin Syringe Ultra-Fine) 0.3 mL 31 gauge x 5/16 syringe Start: 03-30-2024 Lancing Device With Lancets (Onetouch Delica Plus Lanc Dev) kit Start: 11-26-2021 Pen Needle, Diabetic (Bd Ultra-Fine Carol Pen Needle) 32 gauge x 5/32 needle Start: 02-26-2022 Pen Needle, Diabetic (Bd Ultra-Fine Carol Pen Needle) 32 gauge x 5/32 needle Start: 03-30-2024 Lancing Device With Lancets (Onetouch Delica Plus Lanc Dev) kit Start: 10-08-2021 End: 11-26-2021 Pen Needle, Diabetic (Bd Ultra-Fine Carol Pen Needle) 32 gauge x 5/32 needle Start: 01-07-2020 End: 10-10-2020 Pen Needle, Diabetic (Bd Ultra-Fine Carol Pen Needle) 32 gauge x 5/32 needle Start: 10-10-2020 End: 02-26-2022 Blood Sugar Diagnostic (Freestyle Lite Strips) strip Start: 10-08-2021 Insulin Syringe-Needle U-100 (Bd Insulin Syringe Ultra-Fine) 0.3 mL 31 gauge x 5/16 syringe Start: 03-30-2024 Lancing Device With Lancets (Onetouch Delica Plus Lanc Dev) kit Start: 11-26-2021 Pen Needle, Diabetic (Bd Ultra-Fine Carol Pen Needle) 32 gauge x 5/32 needle Start: 02-26-2022 Pen Needle, Diabetic (Bd Ultra-Fine Carol Pen Needle) 32 gauge x 5/32 needle Start: 03-30-2024 Lancing Device With Lancets (Onetouch Delica Plus Lanc Dev) kit Start: 10-08-2021 End: 11-26-2021 Pen Needle, Diabetic (Bd Ultra-Fine Carol Pen Needle) 32 gauge x 5/32 needle Start: 01-07-2020 End: 10-10-2020 Pen Needle, Diabetic (Bd Ultra-Fine Carol Pen Needle) 32 gauge x 5/32 needle Start: 10-10-2020 End: 02-26-2022 Blood Sugar Diagnostic (Freestyle Lite Strips) strip Start: 10-08-2021 Insulin Syringe-Needle U-100 (Bd Insulin Syringe Ultra-Fine) 0.3 mL 31 gauge x 5/16 syringe Start: 03-30-2024 Lancing Device With Lancets (Onetouch Delica Plus Lanc Dev) kit Start: 11-26-2021 Pen Needle, Diabetic (Bd Ultra-Fine Carol Pen Needle) 32 gauge x 5/32 needle Start: 02-26-2022 Pen Needle, Diabetic (Bd Ultra-Fine Carol Pen Needle) 32 gauge x 5/32 needle Start: 03-30-2024 Lancing Device With Lancets (Onetouch Delica Plus Lanc Dev) kit Start: 10-08-2021 End: 11-26-2021 Pen Needle, Diabetic (Bd Ultra-Fine Carol Pen Needle) 32 gauge x 5/32 needle Start: 01-07-2020 End: 10-10-2020 Pen Needle, Diabetic (Bd Ultra-Fine Carol Pen Needle) 32 gauge x 5/32 needle Start: 10-10-2020 End: 02-26-2022 Blood Sugar Diagnostic (Freestyle Lite Strips) strip Start: 10-08-2021 Insulin Syringe-Needle U-100 (Bd Insulin Syringe Ultra-Fine) 0.3 mL 31 gauge x 5/16 syringe Start: 03-30-2024 Lancing Device With Lancets (Onetouch Delica Plus Lanc Dev) kit Start: 11-26-2021 Pen Needle, Diabetic (Bd Ultra-Fine Carol Pen Needle) 32 gauge x 5/32 needle Start: 02-26-2022 Pen Needle, Diabetic (Bd Ultra-Fine Carol Pen Needle) 32 gauge x 5/32 needle Start: 03-30-2024 Lancing Device With Lancets (Onetouch Delica Plus Lanc Dev) kit Start: 10-08-2021 End: 11-26-2021 Pen Needle, Diabetic (Bd Ultra-Fine Carol Pen Needle) 32 gauge x 5/32 needle Start: 01-07-2020 End: 10-10-2020 Pen Needle, Diabetic (Bd Ultra-Fine Carol Pen Needle) 32 gauge x 5/32 needle Start: 10-10-2020 End: 02-26-2022 Blood Sugar Diagnostic (Freestyle Lite Strips) strip Start: 10-08-2021 Insulin Syringe-Needle U-100 (Bd Insulin Syringe Ultra-Fine) 0.3 mL 31 gauge x 5/16 syringe Start: 03-30-2024 Lancing Device With Lancets (Onetouch Delica Plus Lanc Dev) kit Start: 11-26-2021 Pen Needle, Diabetic (Bd Ultra-Fine Carol Pen Needle) 32 gauge x 5/32 needle Start: 02-26-2022 Pen Needle, Diabetic (Bd Ultra-Fine Carol Pen Needle) 32 gauge x 5/32 needle Start: 03-30-2024 Lancing Device With Lancets (Onetouch Delica Plus Lanc Dev) kit Start: 10-08-2021 End: 11-26-2021 Pen Needle, Diabetic (Bd Ultra-Fine Carol Pen Needle) 32 gauge x 5/32 needle Start: 01-07-2020 End: 10-10-2020 Pen Needle, Diabetic (Bd Ultra-Fine Carol Pen Needle) 32 gauge x 5/32 needle Start: 10-10-2020 End: 02-26-2022 Blood Sugar Diagnostic (Freestyle Lite Strips) strip Start: 10-08-2021 Insulin Syringe-Needle U-100 (Bd Insulin Syringe Ultra-Fine) 0.3 mL 31 gauge x 5/16 syringe Start: 03-30-2024 Lancing Device With Lancets (Onetouch Delica Plus Lanc Dev) kit Start: 11-26-2021 Pen Needle, Diabetic (Bd Ultra-Fine Carol Pen Needle) 32 gauge x 5/32 needle Start: 02-26-2022 Pen Needle, Diabetic (Bd Ultra-Fine Acrol Pen Needle) 32 gauge x 5/32 needle Start: 03-30-2024 Lancing Device With Lancets (Onetouch Delica Plus Lanc Dev) kit Start: 10-08-2021 End: 11-26-2021 Pen Needle, Diabetic (Bd Ultra-Fine Carol Pen Needle) 32 gauge x 5/32 needle Start: 01-07-2020 End: 10-10-2020 Pen Needle, Diabetic (Bd Ultra-Fine Carol Pen Needle) 32 gauge x 5/32 needle Start: 10-10-2020 End: 02-26-2022 Blood Sugar Diagnostic (Freestyle Lite Strips) strip Start: 10-08-2021 Insulin Syringe-Needle U-100 (Bd Insulin Syringe Ultra-Fine) 0.3 mL 31 gauge x 5/16 syringe Start: 03-30-2024 Lancing Device With Lancets (Onetouch Delica Plus Lanc Dev) kit Start: 11-26-2021 Pen Needle, Diabetic (Bd Ultra-Fine Carol Pen Needle) 32 gauge x 5/32 needle Start: 02-26-2022 Pen Needle, Diabetic (Bd Ultra-Fine Carol Pen Needle) 32 gauge x 5/32 needle Start: 03-30-2024 Lancing Device With Lancets (Onetouch Delica Plus Lanc Dev) kit Start: 10-08-2021 End: 11-26-2021 Pen Needle, Diabetic (Bd Ultra-Fine Carol Pen Needle) 32 gauge x 5/32 needle Start: 01-07-2020 End: 10-10-2020 Pen Needle, Diabetic (Bd Ultra-Fine Carol Pen Needle) 32 gauge x 5/32 needle Start: 10-10-2020 End: 02-26-2022 Blood Sugar Diagnostic (Freestyle Lite Strips) strip Start: 10-08-2021 Insulin Syringe-Needle U-100 (Bd Insulin Syringe Ultra-Fine) 0.3 mL 31 gauge x 5/16 syringe Start: 03-30-2024 Lancing Device With Lancets (Onetouch Delica Plus Lanc Dev) kit Start: 11-26-2021 Pen Needle, Diabetic (Bd Ultra-Fine Carol Pen Needle) 32 gauge x 5/32 needle Start: 02-26-2022 Pen Needle, Diabetic (Bd Ultra-Fine Carol Pen Needle) 32 gauge x 5/32 needle Start: 03-30-2024 Lancing Device With Lancets (Onetouch Delica Plus Lanc Dev) kit Start: 10-08-2021 End: 11-26-2021 Pen Needle, Diabetic (Bd Ultra-Fine Carol Pen Needle) 32 gauge x 5/32 needle Start: 01-07-2020 End: 10-10-2020 Pen Needle, Diabetic (Bd Ultra-Fine Carol Pen Needle) 32 gauge x 5/32 needle Start: 10-10-2020 End: 02-26-2022 Blood Sugar Diagnostic (Freestyle Lite Strips) strip Start: 10-08-2021 Insulin Syringe-Needle U-100 (Bd Insulin Syringe Ultra-Fine) 0.3 mL 31 gauge x 5/16 syringe Start: 03-30-2024 Lancing Device With Lancets (Onetouch Delica Plus Lanc Dev) kit Start: 11-26-2021 Pen Needle, Diabetic (Bd Ultra-Fine Carol Pen Needle) 32 gauge x 5/32 needle Start: 02-26-2022 Pen Needle, Diabetic (Bd Ultra-Fine Carol Pen Needle) 32 gauge x 5/32 needle Start: 03-30-2024 Lancing Device With Lancets (Onetouch Delica Plus Lanc Dev) kit Start: 10-08-2021 End: 11-26-2021 Pen Needle, Diabetic (Bd Ultra-Fine Carol Pen Needle) 32 gauge x 5/32 needle Start: 01-07-2020 End: 10-10-2020 Pen Needle, Diabetic (Bd Ultra-Fine Carol Pen Needle) 32 gauge x 5/32 needle Start: 10-10-2020 End: 02-26-2022 Blood Sugar Diagnostic (Freestyle Lite Strips) strip Start: 10-08-2021 Insulin Syringe-Needle U-100 (Bd Insulin Syringe Ultra-Fine) 0.3 mL 31 gauge x 5/16 syringe Start: 03-30-2024 Lancing Device With Lancets (Onetouch Delica Plus Lanc Dev) kit Start: 11-26-2021 Pen Needle, Diabetic (Bd Ultra-Fine Carol Pen Needle) 32 gauge x 5/32 needle Start: 02-26-2022 Pen Needle, Diabetic (Bd Ultra-Fine Carol Pen Needle) 32 gauge x 5/32 needle Start: 03-30-2024 Lancing Device With Lancets (Onetouch Delica Plus Lanc Dev) kit Start: 10-08-2021 End: 11-26-2021 Pen Needle, Diabetic (Bd Ultra-Fine Carol Pen Needle) 32 gauge x 5/32 needle Start: 01-07-2020 End: 10-10-2020 Pen Needle, Diabetic (Bd Ultra-Fine Carol Pen Needle) 32 gauge x 5/32 needle Start: 10-10-2020 End: 02-26-2022 Blood Sugar Diagnostic (Freestyle Lite Strips) strip Start: 10-08-2021 Insulin Syringe-Needle U-100 (Bd Insulin Syringe Ultra-Fine) 0.3 mL 31 gauge x 5/16 syringe Start: 03-30-2024 Lancing Device With Lancets (Onetouch Delica Plus Lanc Dev) kit Start: 11-26-2021 Pen Needle, Diabetic (Bd Ultra-Fine Carol Pen Needle) 32 gauge x 5/32 needle Start: 02-26-2022 Pen Needle, Diabetic (Bd Ultra-Fine Carol Pen Needle) 32 gauge x 5/32 needle Start: 03-30-2024 Lancing Device With Lancets (Onetouch Delica Plus Lanc Dev) kit Start: 10-08-2021 End: 11-26-2021 Pen Needle, Diabetic (Bd Ultra-Fine Carol Pen Needle) 32 gauge x 5/32 needle Start: 01-07-2020 End: 10-10-2020 Pen Needle, Diabetic (Bd Ultra-Fine Carol Pen Needle) 32 gauge x 5/32 needle Start: 10-10-2020 End: 02-26-2022 Blood Sugar Diagnostic (Freestyle Lite Strips) strip Start: 10-08-2021 Insulin Syringe-Needle U-100 (Bd Insulin Syringe Ultra-Fine) 0.3 mL 31 gauge x 5/16 syringe Start: 03-30-2024 Lancing Device With Lancets (Onetouch Delica Plus Lanc Dev) kit Start: 11-26-2021 Pen Needle, Diabetic (Bd Ultra-Fine Carol Pen Needle) 32 gauge x 5/32 needle Start: 02-26-2022 Pen Needle, Diabetic (Bd Ultra-Fine Carol Pen Needle) 32 gauge x 5/32 needle Start: 03-30-2024 Lancing Device With Lancets (Onetouch Delica Plus Lanc Dev) kit Start: 10-08-2021 End: 11-26-2021 Pen Needle, Diabetic (Bd Ultra-Fine Carol Pen Needle) 32 gauge x 5/32 needle Start: 01-07-2020 End: 10-10-2020 Pen Needle, Diabetic (Bd Ultra-Fine Carol Pen Needle) 32 gauge x /32 needle Start: 10-10-2020 End: 02-26-2022 Goals Date [...] BSs Functional Status Date Assessment Result Facility 10-22-2024 Functional status Ambulates [facility] Work Phone: 08-11-2024 Functional status Ambulates [facility] Work Phone: 07-03-2023 Functional status Up ad renard [facility] Work Phone: 07-02-2023 Functional status Up ad renard [facility] Work Phone: 08-29-2014 Are you deaf, or do you have serious difficulty hearing No 08/29/2014 9:52 AM Lalita Goode LPN No [facility] 08-29-2014 Are you blind, or do you have serious difficulty seeing, even when wearing glasses No 08/29/2014 9:52 AM Lalita Goode LPN No [facility] 08-29-2014 Do you have serious difficulty walking or climbing stairs No 08/29/2014 9:52 AM Lalita Goode LPN No [facility] 08-29-2014 Do you have difficul ty dressing or bathing No 08/29/2014 9:52 AM Lalita Goode LPN No [facility] 08-29-2014 Because of a physica l, mental, or emotional condition, do you have difficulty doing errands alone such as visiting a physician's office or shopping No 08/29/2014 9:52 AM Lalita Goode LPN No [facility] Mental Status Date Assessment Result Facility 10-22-2024 Cognitive function Voice/Name [facility] Work Phone: 10-19-2024 Cognitive function Awake;Alert;A ppropriate;Fol lows Commands [facility] Work Phone: 08-31-2024 Cognitive function Voice/Name [facility] Work Phone: 08-23-2024 Cognitive function Awake;Alert;A ppropriate;Fol lows Commands [facility] Work Phone: 08-11-2024 Cognitive function Voice/Name [facility] Work Phone: 08-10-2024 Cognitive function Voice/Name [facility] Work Phone: 07-20-2024 Cognitive function Voice/Name [facility] Work Phone: 04-20-2024 Cognitive function Level Of Cons ciousness Awake;Alert;Appropriate;Fol lows Commands [facility] Work Phone: 08-01-2023 Cognitive function Voice/Name [facility] Work Phone: 07-03-2023 Cognitive function Voice/Name [facility] Work Phone: 07-01-2023 Cognitive function Voice/Name [facility] Work Phone: 04-07-2023 Cognitive function Level Of Cons ciousness Awake;Alert;Appropriate;Fol lows Commands [facility] Work Phone: 11-02-2021 Cognitive function Level Of Cons ciousness Awake;Alert;Appropriate [facility] Work Phone: 08-29-2014 Because of a physica l, mental, or emotional condition, do you have serious difficulty concentrating, remembering, or making decisions No 08/29/2014 9:52 AM EDT Lalita Morrow LPN No [facility] Clinical Notes 02-04-2020 to 12-21-2024 Telephone Encounter - Sindy Alonzo - 11/17/2024 10:28 AM EDTTelephone Encounter - Sindy Alonzo - 11/17/2024 10:28 AM EDTPatient InstructionsKapostasy, Bg, RN - 10/26/2024 11:33 AM EDT Note Date & Type Note Facility 12-21-2024 Note HNO ID: [id number] Author: KRISTAL SULLIVAN MD Service: ? Author Type: Physician Type: Progress Notes Filed: 12/21/2024 14:33 Note Text: Reason for Visit Follow up HPI Laurie Gonzales is a 44-year-old male with a history of ESRD on home hemodialysis, type 1 diabetes mellitus, and hypertension, presenting for follow-up. Laurie is currently on the transplant list for both pancreas and kidney at the [facility]. He is undergoing home hemodialysis 5 days a week, each session lasting approximately 4 hours. Laurie manages his dialysis independently, including the preparation of dialysate, which takes about 7 hours per session. He reports that the entire process occupies about 12 hours of his day. He is under the care of Dr. Mann Mckeon and receives support from [employer] for his dialysis management. Laurie describes the dialysis process as generally manageable but notes discomfort when inserting blunt needles into his established buttonholes, stating, it hurts like as it's going in, even though that scab is off and stuff. He reports no issues with the dialysis procedure itself and has not missed any sessions since starting home dialysis. However, he does mention a recent 5-day period without dialysis due to illness, during which he experienced increased urine output and a reduction in foamy urine. He plans to discuss this with Dr. Mckeon during his next clinic visit. Laurie reports a decreased appetite and is supplementing his diet with protein shakes containing 30 grams of protein per can. He is considering resuming Glucerna to meet his protein needs. He also experiences symptoms consistent with restless leg syndrome during dialysis sessions, which he attributes to electrolyte imbalances. Laurie is currently taking metoprolol but has discontinued amlodipine and carvedilol due to concerns about hypotension during dialysis. He monitors his blood pressure regularly during dialysis sessions to prevent hypotensive episodes. He is also on insulin therapy managed by an insulin pump and reports stable blood glucose levels. 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 He is also engaging in physical activity, [facility] where [facility]. SOCIAL HISTORY[1] Past medical history, appointments, medications, allergies reviewed. Pertinent Lab/Diagnostic Studies are reviewed and discussed today Current Outpatient Medications: Nut.Tx.Gluc.Intol,Lac-Free,Soy (GLUCERNA SHAKE) liqd DEXCOM G6 SENSOR aiden OMNIPOD 5 G6-G7 PODS, GEN 5, crtg sevelamer carbonate (RENVELA) 800 mg tablet metoprolol succinate ER (TOPROL XL) 25 mg 24 hr tablet amLODIPine (NORVASC) 5 mg tablet Acetone, Urine, Test (KETONE URINE TEST) blood sugar diagnostic (FREESTYLE LITE STRIPS) test strip MEDICAL SUPPLY rosuvastatin (CRESTOR) 20 mg tablet insulin aspart U-100 (NOVOLOG FLEXPEN U-100 INSULIN) 100 unit/mL (3 mL) alcohol swabs padm Insulin [place], Disposable, (BD ULTRA-FINE CAROL PEN NEEDLE) 32 gauge x 5/32 ndle Zn Bhbgdkq-Oeydhbjorwj-Yyu (AMERIGEL) gel Health Maintenance Hepatitis A Vaccine(1 of 2 - Risk 2-dose series) Shingrix Vaccine(1 of 2) HPV Vaccine(1 - 3-dose SCDM series) DTaP,Tdap,Td Vaccine(1 - Tdap) Diabetic Foot Exam Influenza Vaccine(1)@ Review Of Systems Constitutional: (+) decreased appetite Genitourinary: (+) polyuria, (+) foamy urine, (-) anuria Musculoskeletal: (+) arm pain Neurological: (+) leg restlessness Physical Exam BP 176/94 Pulse 78 Temp 36.5 ?C (97.7 ?F) (Temporal) Resp 16 Wt 90.4 kg (199 lb 6.4 oz) SpO2 99% BMI 27.92 kg/m? GENERAL: NAD, alert and oriented. SKIN: Unremarkable, no rash or skin lesions. HEAD: Normocephalic. EYES: PERRLA, EOMI, conjunctiva clear. EARS: External ears normal, canals clear, TM's normal. NECK: Supple, no lymphadenopathy, normal thyroid, no carotid bruits. LUNGS: Clear to auscultation bilaterally, no wheezes/rhonchi/rales. HEART: Regular rate and rhythm, no murmurs. No ectopy. EXTREMITIES: Normal, no deformities, no skin discoloration, no edema. NEURO: Awake, alert and oriented x3, cranial nerves II-XII grossly intact, normal gait, no involuntary motions. Assessment and Plan 1. Mixed hyperlipidemia (E78.2) No recent lipid panel results discussed. 2. Essential hypertension (I10) Blood pressure generally well controlled on metoprolol; patient omitted dose today, resulting in elevated BP at visit. - Advised patient to take metoprolol as prescribed to maintain optimal blood pressure control. 3. Type 1 diabetes mellitus with hyperosmolarity without coma (HCC) (E10.69) Patient is on insulin via pump; no significant changes in insulin requirements reported. Appetite is decreased, and patient is consuming protein shakes to meet nutri (more content not included)... [facility] 11-17-2024 Telephone encounter Note Progress Note from [facility] scanned into [employer]. Sindy Alonzo [facility] 11-17-2024 Miscellaneous Notes Progress Note from [facility] scanned into [employer]. Sindy Alonzo documented in this encounter [facility] 10-26-2024 Instructions Bg Jennings RN - 10/26/2024 4:58 PM EDT As part of your transplant re-evaluation you are required to complete the following additional items. You are currently listed as inactive on the Kidney-Pancreas transplant waiting list. The most efficient way to complete your re-evaluation is to have these items completed as soon as possible so that we may review the results. Please contact us if you have any questions regarding the requested information. Failure to complete the testing requested may render you inactive on the waiting list. The following will be need to be completed at a [facility] facility: CARDIAC: ECHO - will need to update in 2025 Nuclear stress test - will need to update in 2026 CANCER SCREENING: PSA with Evaluation - will be drawn with your labwork if age appropriate. Colonoscopy - will need @ age 45 ADDITIONAL CONSULTS Cardiology Clearance - will be obtained from your established box car bracer. Imaging Studies: CT of abdomen and pelvis without contrast - will need update in 2026 Miscellaneous Items: - Dental Clearance Form - please make an appointment for a dental visit and have them complete the clearance form and fax it back to the number at the top of the form. . - Stop Plavix - 1st date without Plavix = 10/27/2024 - wait 5 days before resuming ACTIVE status if Cardiology has provided clearance. -Patient asked to have any reports from any visits/procedures done at [facility] faxed to us so they can be seen. - Patient to continue sending monthly Allogen blood for transplant - and will contact coordinator if he needs more kits. - Patient will communicate any medical updates or changes to his coordinator. You are responsible for scheduling your needed testing/consults. Please feel free to call [phone] to arrange. Outside test results should be faxed to [phone]. Please review the kidney transplant educational materials on line at [email or web address] Sign-in: Kidney To check on your status on the wait list, please contact your coordinator, Bg Jennings RN [phone]. [employer] Messages or Call and leave a message @ [phone] are the best ways to get in touch You will need to follow up with the transplant team in 1 year for reassessment. Bg Jennings RN Kidney/Pancreas Pre-Plastics Bench Mechanic [facility] documented in this encounter [facility] 10-26-2024 History of Presen t illness Narrative Radiology Service Progress Note PATIENT NAME: Laurie Gonzales DATE OF SERVICE: October 26, 2024 TIME: 12:07 PM PATIENT IDENTITY VERIFICATION COMPLETED USING TWO (2) IDENTIFIERS: Name and Date of confirmed by patient verbally. FALL SCREENING: Has the patient had 2 falls in the last year or 1 fall with injury or currently using an Ambulatory Assistive Device (Walker, Cane, Wheelchair, Crutches, etc.)? No PATIENT GENDER DATA: Assigned male at PATIENT RELEVANT IMPLANT DATA REVIEWED: Not Applicable PATIENT PRESENTS WITH AN IMPLANTABLE OR ATTACHED SALVAGE MEND WORKER: Yes Dexcom and omnipod both devices shielded RADIOLOGY DEPARTMENT: General X-ray: Exam(s) Completed: Chest X-Ray PERIPHERAL IV DATA: Not applicable SIGNED BY: RT Rancho(R) October 26, 2024 12:07 PM documented in this encounter [facility] 10-26-2024 Note HNO ID: [id number] Author: ROLANDO ALAS RT(R) Service: Radiology Author Type: Technologist Type: Progress Notes Filed: 10/26/2024 12:07 Note Text: Radiology Service Progress Note PATIENT NAME: Laurie Gonzales DATE OF SERVICE: October 26, 2024 TIME: 12:07 PM PATIENT IDENTITY VERIFICATION COMPLETED USING TWO (2) IDENTIFIERS: Name and Date of confirmed by patient verbally. FALL SCREENING: Has the patient had 2 falls in the last year or 1 fall with injury or currently using an Ambulatory Assistive Device (Walker, Cane, Wheelchair, Crutches, etc.)? No PATIENT GENDER DATA: Assigned male at PATIENT RELEVANT IMPLANT DATA REVIEWED: Not Applicable PATIENT PRESENTS WITH AN IMPLANTABLE OR ATTACHED SALVAGE MEND WORKER: Yes Dexcom and omnipod both devices shielded RADIOLOGY DEPARTMENT: General X-ray: Exam(s) Completed: Chest X-Ray PERIPHERAL IV DATA: Not applicable SIGNED BY: RT Rancho(R) October 26, 2024 12:07 PM [facility] 10-26-2024 Note HNO ID: [id number] Author: BG JENNINGS RN Service: ? Author Type: Registered Nurse Type: Progress Notes Filed: 10/26/2024 11:35 Note Text: The wait list status of Laurie Gonzales has been changed to Status 7 (Inactive) on the kidney-pancreas transplant waiting list due to currently on Plavix s/p STEMI w/ stent placed. Status was updated in [facility] and [facility]. Pt made aware of status change. Letter to be sent. Transplant Coordinators performing verification of change: KANDACE Gudino, RN Bg Jennings, arc welding machine operatorPlastics Bench Mechanic [facility] 10-26-2024 History of Presen t illness Narrative The wait list status of Laurie Gonzales has been changed to Status 7 (Inactive) on the kidney-pancreas transplant waiting list due to currently on Plavix s/p STEMI w/ stent placed. Status was updated in [facility] and [facility]. Pt made aware of status change. Letter to be sent. Transplant Coordinators performing verification of change: KANDACE Gudino, RN Bg Jennings, arc welding machine operatorPlastics Bench Mechanic documented in this encounter [facility] 10-26-2024 Note HNO ID: [id number] Author: SARITA TAMAYO MD Service: ? Author Type: Physician Type: Progress Notes Filed: 11/09/2024 10:44 Note Text: [facility] TR[facility] TRANSPLANT RE-EVALUATION Patient is a 44 year old male here for re-evaluation of his Kidney-Pancreas transplant status. Dialysis Start Date: 02/04/2024 Dialysis Type: hemodialysis, M-W-F Dialysis Access: LLA AVF (removed chest cath 08/19/24) Dialysis Unit: [address] [address] Referring/Local User Experience Researcher: Angle Shearer Role Contact Info Address Vivek Diaz MD Referring [facility] [facility] [address] Last evaluation: 08/28/2023 Listed for transplant: 07/14/2024 Status on waitlist: Active BP 93/58 Pulse 73 Temp 36.3 ?C (97.4 ?F) (Temporal) Ht 180 cm (5' 10.87) Wt 86.7 kg (191 lb 2.2 oz) SpO2 100% BMI 26.76 kg/m? Reason for Re-Evaluation: Mr. Gonzales is a 44 yo man with ESRD 2/2 type 1 diabetes since age 18who has been listed for SPK since 07/14/24. He started dialysis 02/04/2024 and currently does IHD on MWF at [facility] and follows with Dr. Diaz. Patient had an NSTEMI on 01/05/2024 and was hospitalized at [facility] - 1 stent placed, started taking Plavix. He was recently hospitalized for dialysis cath infection 09/23/24 and placed on IV antibiotics at dialysis after discharge. Another admission 10/19/24 to [facility] after missed dialysis. Other PMH: HTN, Charcot Foot 2/2 DM, acute gastritis, Alexia/Dyslexia, Charcot Foot 2/2 DM, Anxiety/Depression, diabetic retinopathy - CHELE, Benign neoplasm of right tibia. Stroke: NO Claudication: NO Carotid Artery Stenosis: NO Diagnosis: CKD: Yes: Cause of CKD: DM Urine Output: about 1 liter per day DM: Yes Diagnosed at age 18 and Type 1 KS, CVA, PE/DVT: No Anticoagulation: No Immunosuppression: No Malignancies: No Recent Hospitalizations: Yes fluid overload, catheter infection August 2024 Infections: Yes HD cath infection - August 2024 Living Donors: No - [facility] COVID Status: patient declines COVID vaccine Abdominal/Pelvic surgeries: none Types of donors patient is willing to consider: KDPI score > 85% No Donors from Cardiac (DCD) Yes Hepatitis B Core Antibody Pos Donors Yes Hepatitis C Pos Donors Yes Is the patient vaccinated against HEP B: (If vaccinated ensure documentation in Epic) Yes If patient is not vaccinated against HEP B do they plan on getting the vaccination: No If not why: Has not completed the Hepatitis B vaccination series due to: [] Timing related to transplant/time constraints [] Medical contraindication/precaution [x] Medical judgement/prior immunity [] Patient choice/objection [] Product out of stock [] Confirm if patient is on dialysis Yes Sensitizations: Blood transfusions: no; Willing to accept blood products if needed: yes Prior transplant: No Rabbit: Has patient ever owned a pet rabbit, or participated in hunting and skinning rabbits? no If yes, does the patient have any allergic symptoms such as runny nose, sneezing, itchiness, hives or wheezing when exposed to rabbits? no If yes to allergic symptoms, patient will need referral to Allergy for skin testing. PRA: Serum Date: 10/07/2024 Total PRA: 0 Strong PRA: 0 Strong antibodies: none Weak antibodies: none 08/28/2023 ABO AB ABO AB Rh(D) Positive Rh(D) Positive PAST MEDICAL HISTORY Diagnosis Date Acute gastritis [...] SINGLE/MULTIPLE 10/09/11 Current Outpatient Medications Medication Sig DEXCOM G6 SENSOR aiden USE 1 SENSOR EVERY 10 DAYS DIR (more content not included)... [facility] 10-26-2024 History of Presen t illness Narrative [facility] TRANSPLANT RE-EVALUATION Patient is a 44 year old male here for re-evaluation of his Kidney-Pancreas transplant status. Dialysis Start Date: 02/04/2024 Dialysis Type: hemodialysis, M-W-F Dialysis Access: LLA AVF (removed chest cath 08/19/24) Dialysis Unit: [facility] [address] [address] Referring/Local User Experience Researcher: Angle Shearer Role Contact Info Address Vivek Diaz MD Referring [address] [facility] [id number] Last evaluation: 08/28/2023 Listed for transplant: 07/14/2024 Status on waitlist: Active BP 93/58 Pulse 73 Temp 36.3 C (97.4 F) (Temporal) Ht 180 cm (5' 10.87) Wt 86.7 kg (191 lb 2.2 oz) SpO2 100% BMI 26.76 kg/m Reason for Re-Evaluation: Mr. Gonzales is a 44 yo man with ESRD 2/2 type 1 diabetes since age 18who has been listed for SPK since 07/14/24. He started dialysis 02/04/2024 and currently does IHD on MWF at [facility] and follows with Dr. Diaz. Patient had an NSTEMI on 01/05/2024 and was hospitalized at [facility] - 1 stent placed, started taking Plavix. He was recently hospitalized for dialysis cath infection 09/23/24 and placed on IV antibiotics at dialysis after discharge. Another admission 10/19/24 to [facility] after missed dialysis. Other PMH: HTN, Charcot Foot 2/2 DM, acute gastritis, Alexia/Dyslexia, Charcot Foot 2/2 DM, Anxiety/Depression, diabetic retinopathy - CHELE, Benign neoplasm of right tibia. Stroke: NO Claudication: NO Carotid Artery Stenosis: NO Diagnosis: CKD: Yes: Cause of CKD: DM Urine Output: about 1 liter per day DM: Yes Diagnosed at age 18 and Type 1 KS, CVA, PE/DVT: No Anticoagulation: No Immunosuppression: No Malignancies: No Recent Hospitalizations: Yes fluid overload, catheter infection August 2024 Infections: Yes HD cath infection - August 2024 Living Donors: No - SPK COVID Status: patient declines COVID vaccine Abdominal/Pelvic surgeries: none Types of donors patient is willing to consider: KDPI score > 85% No Donors from Cardiac (DCD) Yes Hepatitis B Core Antibody Pos Donors Yes Hepatitis C Pos Donors Yes Is the patient vaccinated against HEP B: (If vaccinated ensure documentation in Epic) Yes If patient is not vaccinated against HEP B do they plan on getting the vaccination: No If not why: Has not completed the Hepatitis B vaccination series due to: [] Timing related to transplant/time constraints [] Medical contraindication/precaution [x] Medical judgement/prior immunity [] Patient choice/objection [] Product out of stock [] Confirm if patient is on dialysis Yes Sensitizations: Blood transfusions: no; Willing to accept blood products if needed: yes Prior transplant: No Rabbit: Has patient ever owned a pet rabbit, or participated in hunting and skinning rabbits? no If yes, does the patient have any allergic symptoms such as runny nose, sneezing, itchiness, hives or wheezing when exposed to rabbits? no If yes to allergic symptoms, patient will need referral to Allergy for skin testing. PRA: Serum Date: 10/07/2024 Total PRA: 0 Strong PRA: 0 Strong antibodies: none Weak antibodies: none 08/28/2023 ABO AB ABO AB Rh(D) Positive Rh(D) Positive PAST MEDICAL HISTORY Diagnosis Date Acute gastritis [...] SINGLE/MULTIPLE 10/09/11 Current Outpatient Medications Medication Sig DEXCOM G6 SENSOR aiden USE 1 SENSOR EVERY 10 DAYS DIRECTED OMNIPOD 5 G6-G7 PODS, GEN 5, crtg sevelamer carbonate (RENVELA) 800 mg tablet Take 800 mg by mouth three times a day with meals. metoprolol succinate ER (TOPROL XL) 25 mg 24 hr tablet Take 1 tablet by mouth once daily. amLODIPine (NORVASC) 5 mg tablet Take 1 tablet by mouth once daily. Acetone, Urine, Test (KETONE URINE TEST) 1 Strip as directed. DX E10.65 E10.3599 blood sugar diagnostic (FREESTYLE LITE STRIPS) test strip Test blood sugar 10 times daily . Dx. E10.3599 E10.65, Insulin: yes MEDICAL SUPPLY Blood pressure machine Nut.Tx.Gluc.Intol,Lac-Free,Soy (GLUCERNA SHAKE) liqd DRINK 1 BOTTLE (237ML) twice a day rosuvastatin (CRESTOR) 20 mg tablet Take 1 tablet by mouth daily at bedtime. insulin aspart U-100 (NOVOLOG FLEXPEN U-100 INSULIN) 100 unit/mL (3 mL) Take 30 units before meals Do not take if you do not eat (Patient taking differently: 250 units every 3 days in Omnipod device) alcohol swabs padm APPLY TO AFFECTED AREA FIVE TIMES DAILY Insulin [place], Disposable, (BD ULTRA-FINE CAROL PEN NEEDLE) 32 gauge x /32 ndle Use one needle for each dose. 7/day. Zn Bbzhvlu-Fwjhdfyudgi-Mtr (AMERIGEL) gel Apply 1 application to affected area twice daily. No current facility-administered medications for this visit. MOST RECENT / UPDATED TESTING: Cardiac: EK11/20/2018 Diagnosis:SINUS TACHYCARDIA OTHERWISE NORMAL ECG Stress Test: 04/12/2024 CONCLUSIONS: 1. SPECT Perfusion Study: Normal. 2. [...] scan. Gated Stress FBP LVEF % 67 Echo: 07/02/2023 Summary: Normal LV size. Left ventricular systolic function is normal. The estimated ejection fraction is 55% Normal diastology for age. Vascular/Imaging: CT Chest/Abd/Pelvis: 08/23/2024 FINDINGS: 1. CT CHEST --- There are [...] colon with few small scattered colonic diverticuli. CXR: 08/23/2024 Impression: No acute cardiopulmonary disease. Health Maintenance/Cancer Screening: PSA: No results found for: PSA Colonoscopy: N/A age 44 Immunizations: HBV series: Received, date 09/06/2024, 07/13/2024, 06/07/2024, 05/10/2024 Pneumovax: Received, date PCV20 - 09/21/2024; PPV23 - 07/29/2010 Influenza vaccine: Not received, patient encouraged to obtain Covid vaccine: Not received, patient encouraged to obtain Serologies: To be updated today Latest Ref Rng 08/28/2023 09/21/2024 TB Nil <=8.00 IU/mL 0.04 0.01 TB1 Ag minus Nil <0.35 IU/mL <0.00 0.01 TB2 Ag minus Nil <0.35 IU/mL <0.00 0.00 TB Result Negative Negative Mitogen minus Nil >=0.50 IU/mL 8.02 >9.99 TB Interpretation Infection with M. tuberculosis complex is unlikely. If latent tuberculosis infection is highly suspected, a negative result does not rule out the infection. Specimens from immunocompromised patients and those <5 years of age may show false negative results. In case of a contact investigation, please repeat 8-12 weeks after a known exposure. Infection with M. tuberculosis complex is unlikely. If latent tuberculosis infection is highly suspected, a negative result does not rule out the infection. Specimens from immunocompromised patients and those <5 years of age may show false negative results. In case of a contact investigation, please repeat 8-12 weeks after a known exposure. CMV IgG Qualitative Negative Negative Negative CMV Antibody, IgG U/mL <0.20 <0.20 Syphilis Treponemal Screen Nonreactive Nonreactive Syphilis Interpretation Cannot exclude recent Treponemal infection if specimen collected within 7-10 days after appearance of suspect lesions or 2-3 weeks after an exposure. Clinical correlation is required. Hep B Surface Ab, Qual Negative Positive Hep B Surf Ab Quant mIU/mL <8.00 99.55 EBV VCA IgG, Qual Negative Positive ! Positive ! Strongyloides IgG, Serum Negative Negative Negative Measles Antibody, IGG Qualitative Positive Positive Varicella Zoster IgG, Qual Positive Positive Positive Hep C Antibody IA Negative Negative Negative Hep B Surface Ag Negative Negative Negative Hep B Core Ab, Total Negative Negative Negative Legend: ! Abnormal Seen by Dr. Belkis Jennings, RN [facility] Bench [employer] REVIEW OF SYSTEMS: Comprehensive ROS obtained and negative unless noted in above HPI. PHYSICAL EXAM: There were no vitals taken for this visit. General appearance: Well appearing, alert, in no acute distress, well-hydrated, well nourished. Skin: Skin color, texture, turgor normal, no suspicious rashes or lesions Head: Normocephalic, no masses, lesions, tenderness or abnormalities Eyes: Anicteric sclera. Extraocular movements are intact. Ears: External ears normal Back: Normal exam Cardiac: RRR, no murmurs rubs or gallops Lungs:Respirations unlabored Abdomen: Normal abdominal exam, Abdomen soft, non-tender. Bowel sounds normal. No masses, organomegaly Extremities: No deformities, edema, skin discoloration, clubbing or cyanosis. Good capillary refill. Musculoskeletal: No joint swelling, deformity, or tenderness Peripheral pulses: Normal Neuro: Gait normal. Sensation grossly intact. Dialysis Access: AVF ASSESSMENT: yes h/o DVT, PE, KS, or CVA Midodrine no no h/o malignancy no anticoagulation -The kidney transplant and kidney/pancreas transplant operations were discussed with the patient at length, and all questions were answered to the patient's satisfaction. Risks, benefits, and alternatives discussed. Risks discussed include but are not limited to: bleeding, infection, , KS, DVT, PE, CVA, risk of damage to surrounding structures, risk of lymphocele, urine leak, stricture, lower extremity complications, risk of bowel complications, bowel obstruction, and anastomotic leak. Also discussed the need for immunosuppressant medications for the lifetime of the allograft and the associated risks of infection and malignancy over time. PLAN: - Mrs. Gonzales is a 44 years old lady with ESRD due to DM1. She has been on dialysis since 01/2024. - She is on the SPK list. - CT: mild calcification on both EIAs, ok for surgery - Patient is an acceptable surgical candidate for renal/SPK transplantation pending acceptable findings on the remainder of pre transplant evaluation Plan: Christian Montero is an acceptable candidate for kidney pancreas transplantation pending completion of work up and meeting the rest of the team. Advantages and disadvantages of transplantation versus dialysis were reviewed. Discussed the operative procedure and potential complications. I addressed issues of post-operative recovery and follow up. Few things I have discussed with him/her a. the advantage and disadvantage of SPK [...] the need for urinary catheter and ureteric stent. I overviewed the issues of delayed graft function, the possible need for dialysis, and the possible need for re-operation during the early postoperative period. I also informed him of the occasional need for blood transfusion and he expressed his understanding and willingness to accept one if the need arises. I mentioned other complications including thromboembolic events, cardiac events, and infection.I also outlined the related surgical aspects of the pancreas transplant, bowel complications, acute thrombosis and need to remove a thrombosed graft. f. I stressed on the post-transplant commitment to follow-up and the need for immunosuppressive medications for the duration of the graft life and the need for compliance. He verbalized understanding and motivation to do so. 1. Stress echo 2. Abd/pelvic CT without contrast: mild calcification on both EIAs, ok for surgery 3. serology 4. Routine labs and work up I spent a total of 45 minutes on the date of the service which included preparing to see the patient, [id number] patient care, completing clinical documentation, obtaining and/or reviewing separately obtained history, performing a medically appropriate examination, counseling and educating the patient/family/caregiver, ordering medications, tests, or procedures, communicating with other HCPs (not separately reported), independently interpreting results (not separately reported), communicating results to the patient/family/caregiver, and care coordination (not separately reported). Dustin Beard documented in this encounter [facility] 10-26-2024 Note HNO ID: [id number] Author: BEVERLY SHAFFER OCCA Service: ? Author Type: Batt Packer Type: Progress Notes Filed: 10/26/2024 13:48 Note Text: BP running low but he said that as the day go on his BP with come up [facility] 10-26-2024 History of Presen t illness Narrative BP running low but he said that as the day go on his BP with come up [facility] TRANSPLANT RE-EVALUATION Patient is a 44 year old male here for re-evaluation of his Kidney-Pancreas transplant status. Dialysis Start Date: 02/04/2024 Dialysis Type: hemodialysis, M-W-F Dialysis Access: LLA AVF (removed chest cath 08/19/24) Dialysis Unit: [facility] [place] [address] [facility] [address] Referring/Local User Experience Researcher: Angle Shearer Role Contact Info Address Vivek Diaz MD Referring [address] [facility] [id number] Last evaluation: 08/28/2023 Listed for transplant: 07/14/2024 Status on waitlist: Active Waitlist appointment for this 44-year-old male. He has been listed for simultaneous pancreas kidney June of last year. He was seen in July 2023. Significant medical events since then he was started on renal replacement therapy in December 2023 after he had an NSTEMI of well-controlled blood sugars. Had a stent placed and he is currently on Plavix. Recently admitted with TDC infection now dialyzes through an AV fistula. Continue home hemodialysis. Last admission for volume overload was seen, recommends dialysis on Friday. He still has urine output of around a liter and a half. No issues with peripheral vascular disease or neuropathy. Early in the year had an admission for nausea vomiting however he does not have a doctor frequently. Medications reviewed Reason for Re-Evaluation: Mr. Gonzales is a 44 yo man with ESRD 2/2 type 1 diabetes since age 18who has been listed for SPK since 07/14/24. He started dialysis 02/04/2024 and currently does IHD on MWF at [facility] and follows with Dr. Diaz. Patient had an NSTEMI on 01/05/2024 and was hospitalized at [facility] - 1 stent placed, started taking Plavix. He was recently hospitalized for dialysis cath infection 09/23/24 and placed on IV antibiotics at dialysis after discharge. Another admission 10/19/24 to [facility] after missed dialysis. Other PMH: HTN, Charcot Foot 2/2 DM, acute gastritis, Alexia/Dyslexia, Charcot Foot 2/2 DM, Anxiety/Depression, diabetic retinopathy - CHELE, Benign neoplasm of right tibia. Stroke: NO Claudication: NO Carotid Artery Stenosis: NO Diagnosis: CKD: Yes: Cause of CKD: DM Urine Output: about 1 liter per day DM: Yes Diagnosed at age 18 and Type 1 KS, CVA, PE/DVT: No Anticoagulation: No Immunosuppression: No Malignancies: No Recent Hospitalizations: Yes fluid overload, catheter infection August 2024 Infections: Yes HD cath infection - August 2024 Living Donors: No - SPK COVID Status: patient declines COVID vaccine Abdominal/Pelvic surgeries: none Types of donors patient is willing to consider: KDPI score > 85% No Donors from Cardiac (DCD) Yes Hepatitis B Core Antibody Pos Donors Yes Hepatitis C Pos Donors Yes Is the patient vaccinated against HEP B: (If vaccinated ensure documentation in Epic) Yes If patient is not vaccinated against HEP B do they plan on getting the vaccination: No If not why: Has not completed the Hepatitis B vaccination series due to: [] Timing related to transplant/time constraints [] Medical contraindication/precaution [x] Medical judgement/prior immunity [] Patient choice/objection [] Product out of stock [] Confirm if patient is on dialysis Yes Sensitizations: Blood transfusions: no; Willing to accept blood products if needed: yes Prior transplant: No Rabbit: Has patient ever owned a pet rabbit, or participated in hunting and skinning rabbits? no If yes, does the patient have any allergic symptoms such as runny nose, sneezing, itchiness, hives or wheezing when exposed to rabbits? no If yes to allergic symptoms, patient will need referral to Allergy for skin testing. PRA: Serum Date: 10/07/2024 Total PRA: 0 Strong PRA: 0 Strong antibodies: none Weak antibodies: none 08/28/2023 ABO AB ABO AB Rh(D) Positive Rh(D) Positive PAST MEDICAL HISTORY Diagnosis Date Acute gastritis [...] SINGLE/MULTIPLE 10/09/11 Current Outpatient Medications Medication Sig DEXCOM G6 SENSOR aiden USE 1 SENSOR EVERY 10 DAYS DIRECTED OMNIPOD 5 G6-G7 PODS, GEN 5, crtg sevelamer carbonate (RENVELA) 800 mg tablet Take 800 mg by mouth three times a day with meals. metoprolol succinate ER (TOPROL XL) 25 mg 24 hr tablet Take 1 tablet by mouth once daily. amLODIPine (NORVASC) 5 mg tablet Take 1 tablet by mouth once daily. Acetone, Urine, Test (KETONE URINE TEST) 1 Strip as directed. DX E10.65 E10.3599 blood sugar diagnostic (FREESTYLE LITE STRIPS) test strip Test blood sugar 10 times daily . Dx. E10.3599 E10.65, Insulin: yes MEDICAL SUPPLY Blood pressure machine Nut.Tx.Gluc.Intol,Lac-Free,Soy (GLUCERNA SHAKE) liqd DRINK 1 BOTTLE (237ML) twice a day rosuvastatin (CRESTOR) 20 mg tablet Take 1 tablet by mouth daily at bedtime. insulin aspart U-100 (NOVOLOG FLEXPEN U-100 INSULIN) 100 unit/mL (3 mL) Take 30 units before meals Do not take if you do not eat (Patient taking differently: 250 units every 3 days in Omnipod device) alcohol swabs padm APPLY TO AFFECTED AREA FIVE TIMES DAILY Insulin [place], Disposable, (BD ULTRA-FINE CAROL PEN NEEDLE) 32 gauge x 5/32 ndle Use one needle for each dose. 7/day. Zn Txkpojh-Glfylyfyjgx-Xpl (AMERIGEL) gel Apply 1 application to affected area twice daily. No current facility-administered medications for this visit. MOST RECENT / UPDATED TESTING: Cardiac: EK11/20/2018 Diagnosis:SINUS TACHYCARDIA OTHERWISE NORMAL ECG Stress Test: 04/12/2024 CONCLUSIONS: 1. SPECT Perfusion Study: Normal. 2. [...] scan. Gated Stress FBP LVEF % 67 Echo: 07/02/2023 Summary: Normal LV size. Left ventricular systolic function is normal. The estimated ejection fraction is 55% Normal diastology for age. Vascular/Imaging: CT Chest/Abd/Pelvis: 08/23/2024 FINDINGS: 1. CT CHEST --- There are [...] colon with few small scattered colonic diverticuli. CXR: 08/23/2024 Impression: No acute cardiopulmonary disease. Health Maintenance/Cancer Screening: PSA: No results found for: PSA Colonoscopy: N/A age 44 Immunizations: HBV series: Received, date 09/06/2024, 07/13/2024, 06/07/2024, 05/10/2024 Pneumovax: Received, date PCV20 - 09/21/2024; PPV23 - 07/29/2010 Influenza vaccine: Not received, patient encouraged to obtain Covid vaccine: Not received, patient encouraged to obtain Serologies: To be updated today Latest Ref Rng 08/28/2023 09/21/2024 TB Nil <=8.00 IU/mL 0.04 0.01 TB1 Ag minus Nil <0.35 IU/mL <0.00 0.01 TB2 Ag minus Nil <0.35 IU/mL <0.00 0.00 TB Result Negative Negative Mitogen minus Nil >=0.50 IU/mL 8.02 >9.99 TB Interpretation Infection with M. tuberculosis complex is unlikely. If latent tuberculosis infection is highly suspected, a negative result does not rule out the infection. Specimens from immunocompromised patients and those <5 years of age may show false negative results. In case of a contact investigation, please repeat 8-12 weeks after a known exposure. Infection with M. tuberculosis complex is unlikely. If latent tuberculosis infection is highly suspected, a negative result does not rule out the infection. Specimens from immunocompromised patients and those <5 years of age may show false negative results. In case of a contact investigation, please repeat 8-12 weeks after a known exposure. CMV IgG Qualitative Negative Negative Negative CMV Antibody, IgG U/mL <0.20 <0.20 Syphilis Treponemal Screen Nonreactive Nonreactive Syphilis Interpretation Cannot exclude recent Treponemal infection if specimen collected within 7-10 days after appearance of suspect lesions or 2-3 weeks after an exposure. Clinical correlation is required. Hep B Surface Ab, Qual Negative Positive Hep B Surf Ab Quant mIU/mL <8.00 99.55 EBV VCA IgG, Qual Negative Positive ! Positive ! Strongyloides IgG, Serum Negative Negative Negative Measles Antibody, IGG Qualitative Positive Positive Varicella Zoster IgG, Qual Positive Positive Positive Hep C Antibody IA Negative Negative Negative Hep B Surface Ag Negative Negative Negative Hep B Core Ab, Total Negative Negative Negative Legend: ! Abnormal Seen by Dr. Kush Jennings, [facility] Bench [employer]ic I have confirmed and edited as necessary, the PFSH and ROS obtained by others. Raghu Currie MD BP 93/58 Pulse 73 Temp 36.3 C (97.4 F) (Temporal) Ht 180 cm (5' 10.87) Wt 86.7 kg (191 lb 2.2 oz) SpO2 100% BMI 26.76 kg/m GENERAL: Nad NECK: no JVD LYMPH: non LUNGS: clear to a CV: rrr ABD:soft ,nontender EXT: no edema Impression Currently not a candidate for transplantation as he recently had an NSTEMI. He was still on Plavix so he came here he has called his box car bracer and the Plavix was discontinued. However, will need to have cardiology clearance locally. If not satisfactory we may need him to see overall box car bracer. Questions answered. Counseled to see a loading manager once a year. Raghu Currie MD This note was partially generated using [employer] voice recognition system, and there may be some incorrect words, spellings, and punctuation that were not noted in checking the note before saving. documented in this encounter [facility] 10-26-2024 Note HNO ID: [id number] Author: CIARRA RAMÍREZ LISW Service: ? Author Type: Chemical Equipment Sales Engineer Type: Progress Notes Filed: 11/04/2024 10:09 Note Text: PSYCHOSOCIAL WAITLIST EVALUATION FOR KIDNEY TRANSPLANT (Assessment Via Telephone Contact) Laurie Gonzales was initially evaluated by this SW on 08/28/23. At the time of initial assessment, Laurie Gonzales was not yet a suitable psychosocial candidate for kidney transplant. At the time of the assessment the following was needed: -Pt identified support and both of their [...] be monitored by SW reviewing pt's EMR. The above was later completed and pt was deemed to be a moderate psychosocial candidate due to past history of non compliance. Pt has been listed at since 07/14/24. DIALYSIS START DATE: Jan 05, 2024 Pt was on hemodialysis and he was going on M, W, F. Pt has been training for home hemo for about 1 month. [facility]. The phone number to the center is [phone]. This social work psychosocial waitlist evaluation was completed with Laurie Gonzales via telephone contact on October 26, 2024. Pt's ex- Ira was also on the call. Pt was at at the time of this assessment. Race/Gender: Male White [] Descent [][place] or [][place] (non-Black) []White: Other [x]White: Not Specified/Unknown [place] Citizen: Yes IDENTIFYING INFORMATION/LIVING SITUATION Laurie Gonzales resides at: [address] [place] [address]. This home is about 1hr [place] 25min (70 miles) away from . Pt has lived in this bi-level home for about 13yrs.. Pt denies any architectural barriers in the home. Pt reports he is independent with all ADL's, he has a drivers license and a vehicle. Pt denies receiving any home health care or home health aide services at this time. Others in household are: Pt's 3 children and his ex-. 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 She is independent with all ADL's, she has a drivers license and a vehicle. Li - Age 21, is in good health and is a high school graduate. Li is independent with all ADL's, he has a drivers license and a vehicle. 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 Carlos - Age 19, is reported to be in good health and she is going into the 12th garde for the upcoming school year. Carlos is independent with all ADL's, she doesn't have a drivers license, however, she does have a vehicle. Shay - Age 18, is reported to be in good health and he is going into the 10th grade this upcoming school year. Shay is also independent with all ADL's. There are 3 licensed drivers in the home and 4 working vehicles. Caregiver responsibilities: Pt stated all of his children are independent with all ADL's. Pets in the home: 2 dogs - SW reviewed precautions to take post transplant regarding animal care. Pt verbalized understanding. TRANSPLANT LODGING PLANS FOR PATIENTS WHO LIVE 2.5 OR MORE HOURS AWAY FROM [facility]: Do you have the financial means to stay in the area for four weeks or more post-transplant? N/A COMPLIANCE Missed doctor appointments: Pt currently has a CC No Show rate of 30% (52 of 173.) Missed/shortened/rescheduled dialysis appointments: Pt stated he was going to all dialysis sessions and staying the full treatment. Knowledge of medications: Pt was able to tell SW the name and purpose of his medication. Medication Compliance: Pt stated he takes all medication as prescribed and he takes them straight from the bottles. Pt is insulin dependent and he has a continuous glucose monitor. Have you stopped taking medication because you felt you didn't need it or because of side-effects? No, new incidents. (Please see initial psychosocial assessment for more information.) Have you ever been transplanted, evaluated, or listed at another center: No Potential donor: None identified at this time. SW discussed the importance of medical compliance, including attending all medical appointments as scheduled, dialysis sessions, medication compliance, following recommendations, returning phone calls from medical staff and etc.. SW discussed possible outcomes of non-compliance. SW also discussed the importance of having active health insurance at all times. Pt verbalized understanding. SUBSTANCE USE/ABUSE Alcohol: None Tobacco: None Exposure to second hand smoke: No Cocaine, THC, Heroin, or Other Recreational Drug Use: Pt denies ever using. Over the Counter Medicatio (more content not included)... [facility] 10-25-2024 Note HNO ID: [id number] Author: RAGHU CURRIE MD Service: ? 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 Dialysis Start Date: 02/04/2024 Dialysis Type: hemodialysis, M-W-F Dialysis Access: LLA AVF (removed chest cath 08/19/24) Dialysis Unit: [facility] [address] [address] Referring/Local User Experience Researcher: Angle Shearer Role Contact Info Address Vivek Diaz MD Referring [address] [place] [address] PASS YVAN Gautam [facility] [id number] Last evaluation: 08/28/2023 Listed for transplant: 07/14/2024 Status on waitlist: Active Waitlist appointment for this 44-year-old male. He has been listed for simultaneous pancreas kidney June last year. He was seen in July 2023. Significant medical events since then he was started on renal replacement therapy in December 2023 after he had an NSTEMI of well-controlled blood sugars. Had a stent placed and he is currently on Plavix. Recently admitted with TDC infection now dialyzes through an AV fistula. Continue home hemodialysis. Last admission for volume overload was seen, recommends dialysis on Friday. He still has urine output of around a liter and a half. No issues with peripheral vascular disease or neuropathy. Early in the year had an admission for nausea vomiting however he does not have a doctor frequently. Medications reviewed Reason for Re-Evaluation: Mr. Gonzales is a 44 yo man with ESRD 2/2 type 1 diabetes since age 18who has been listed for SPK since 07/14/24. He started dialysis 02/04/2024 and currently does IHD on MWF at [facility] and follows with Dr. Diaz. Patient had an NSTEMI on 01/05/2024 and was hospitalized at [facility] - 1 stent placed, started taking Plavix. He was recently hospitalized for dialysis cath infection 09/23/24 and placed on IV antibiotics at dialysis after discharge. Another admission 10/19/24 to [facility] after missed dialysis. Other PMH: HTN, Charcot Foot 2/2 DM, acute gastritis, Alexia/Dyslexia, Charcot Foot 2/2 DM, Anxiety/Depression, diabetic retinopathy - CHELE, Benign neoplasm of right tibia. Stroke: NO Claudication: NO Carotid Artery Stenosis: NO Diagnosis: CKD: Yes: Cause of CKD: DM Urine Output: about 1 liter per day DM: Yes Diagnosed at age 18 and Type 1 KS, CVA, PE/DVT: No Anticoagulation: No Immunosuppression: No Malignancies: No Recent Hospitalizations: Yes fluid overload, catheter infection August 2024 Infections: Yes HD cath infection - August 2024 Living Donors: No - SPK COVID Status: patient declines COVID vaccine Abdominal/Pelvic surgeries: none Types of donors patient is willing to consider: KDPI score > 85% No Donors from Cardiac (DCD) Yes Hepatitis B Core Antibody Pos Donors Yes Hepatitis C Pos Donors Yes Is the patient vaccinated against HEP B: (If vaccinated ensure documentation in Epic) Yes If patient is not vaccinated against HEP B do they plan on getting the vaccination: No If not why: Has not completed the Hepatitis B vaccination series due to: [] Timing related to transplant/time constraints [] Medical contraindication/precaution [x] Medical judgement/prior immunity [] Patient choice/objection [] Product out of stock [] Confirm if patient is on dialysis Yes Sensitizations: Blood transfusions: no; Willing to accept blood products if needed: yes Prior transplant: No Rabbit: Has patient ever owned a pet rabbit, or participated in hunting and skinning rabbits? no If yes, does the patient have any allergic symptoms such as runny nose, sneezing, itchiness, hives or wheezing when exposed to rabbits? no If yes to allergic symptoms, patient will need referral to Allergy for skin testing. PRA: Serum Date: 10/07/2024 Total PRA: 0 Strong PRA: 0 Strong antibodies: none Weak antibodies: none 08/28/2023 ABO AB ABO AB Rh(D) Positive Rh(D) Positive PAST MEDICAL HISTORY Diagnosis Date Acute gastritis [...] acquired deformity of other parts of limb (more content not included)... [facility] 10-22-2024 Discharge summary Note Date/Time October 22, 2024 1:06pm [facility] Medical Records Department [address] [place] [id number] Instructions for Home/Discharge Instructions 10/22/24 1259 MR#: [id number] Acct: [id number] Name: LAURIE GONZALES Rep #:[id number] : 1980 44 From: Chris Emerson DO PCP: Dr. Kristal Sullivan MD Status:ADM I N Discharge Instructions DC O2, CPAP, BIPAP needs Home O2 Discharge instructions: No Dressing / Incision Discharge Activity: Return to Normal Activity Weight Bearing Status: Full weight bearing Follow Up Care Test Results: Test results from this visit will be discussed in further detail at your follow-up appointment, if applicable. Discharge Plan Admission Admit Date/Time: 10/19/24 03:37 Primary Reason for Your Visit: Pneumonia, end-stage renal failure, hypoxia Attending Provider: Chris Emerson Primary Care Provider: Kristal Sullivan Consulting Providers: Daisy Diaz; Chava Naik Instructions Additional Instructions / Restrictions: Start azithromycin today Discharge Orders/Prescriptions Prescriptions: New azithromycin [Zithromax] 500 mg tablet 500 mg PO DAILY 3 Days Qty: 3 0RF Continued clopidogrel 75 mg tablet 75 mg PO DAILY Qty: 90 3RF aspirin 81 mg tablet,delayed release (DR/EC) 81 mg PO BREAKFAST Qty: 90 3RF rosuvastatin 10 mg tablet 10 mg PO DAILY Qty: 90 1RF cholecalciferol (vitamin D3) 50 mcg (2,000 unit) capsule 150 mcg PO DAILY sevelamer carbonate 800 mg tablet 800 mg PO DAILY Rx Instructions: must administer with a meal/food carvedilol 25 mg tablet 25 mg PO QDAY Rx Instructions: must administer with a meal/food pantoprazole 40 mg tablet,delayed release (DR/EC) 40 mg PO BID Qty: 180 1RF Rx Instructions: take 30 minutes before breakfast and dinner amlodipine 5 mg tablet 10 mg PO DAILY Qty: 90 3RF (DME) Dexcom G6 Sensor Device See Rx Instructions .Route Qty: 9 1RF Rx Instructions: 1 sensor q 10 days (DME) Dexcom G6 Transmitter Device See Rx Instructions .Route Qty: 1 1RF Rx Instructions: 1 q 90 days insulin aspart U-100 [Novolog U-100 Insulin aspart] 100 unit/mL solution 80 unit continuous subcutaneous infusion .continuous Qty: 72 1RF (DME) Omnipod 5 G6-G7 Pods (Gen 5) Cartridge See Rx Instructions .Route Qty: 30 1RF Rx Instructions: change every 3 days Referrals / Follow Up: Kristal Sullivan MD [Primary Care Provider] - Within 1 Month Disposition Disposition (needs filled in before D/C Order can be placed): Home, Self Care 10/22/24 1306<Electronically signed by Chris Emerson DO>Chris Emerson DO CC: Dr. Kristal Sullivan MD; Dr. Daisy Diaz MD; Dr. Chava Naik MD ~ Signed [facility] Work Phone: 1(868) 597-144807-25-2025 Hospital Discharge instructionsAdditional Instructions Start azithromycin today Date of Discharge: 10/22/24[facility] Work Phone: 1(748) 203-599507-25-2025 [facility]07-25-2025 Progress note Author Domenica Álvarez tr [facility] Note Date/Time October 22, 2024 9:20 am [facility] Medical Records Department [address] [place] [address] Progress Note - Nephrology 10/22/24 0902 MR#: [id number] Acct: [id number] Name: LAURIE GONZALES Rep #:[id number] : 1980 44 From: Domenica delgado MD PCP: Dr. Kristal Sullivan MD Status:ADM I N Location: [place] [address] Subjective Subjective Following for ESRD. Patient feels better overall. He denies CP, nausea or diarrhea. Dyspnea is better. Objective Data Objective Data Vital Signs: Vital Signs Temp Pulse Resp BP Pulse Ox O2 Del Method O2 Flow Rate 97.9 F 85 18 159/92 H 95 Room Air 2 10/22/24 03:55 10/22/24 03:55 10/22/24 03:55 10/22/24 03:55 10/22/24 03:55 10/22/24 07:53 10/22/24 01:05 FiO2 61 10/20/24 06:40 Oxygen Flow Rate (L/min) 2 Oxygen Delivery Method Room Air Weight: 81 kg Body Mass Index (BMI) 25.0 Intake & Output: Intake and Output for Last 24 Hours 10/20/24 10/21/24 10/22/24 23:59 23:59 23:59 Intake Total 950 / 1450 1750 / 1750 250 / 250 Output Total 5930 / 5930 2700 / 2700 700 / 700 Balance -4980 / -4480 -950 / -950 -450 / -450 Lab / Micro Data 10/22/24 07:48 10/22/24 07:48 Labs: Laboratory Results - last 24 hr 10/21/24 10:54: POC Glucose 303 H 10/22/24 07:48: WBC 6.9, RBC 3.16 L, Hgb 9.6 L, Hct 28.2 L, MCV 89.2, MCH 30.4, MCHC 34.0, RDW Std Deviation 45.6 H, RDW Coeff of Marcella 13.9, Plt Count 237, MPV 9.2, Immature Gran % (Auto) 0.300, Neut % (Auto) 73.1 H, Lymph % (Auto) 14.1 L, Ballard % (Auto) 9.4, Eos % (Auto) 2.5, Baso % (Auto) 0.6, Absolute Neuts (auto) 5.0, Absolute Lymphs (auto) 0.97, Nucleated RBC % 0, Sodium 134, Potassium 4.0, Chloride 95 L, Carbon Dioxide 22.5, Anion Gap 16 H, BUN 66 H, Creatinine 6.85 H,Estim Creat Clear Calc 14.96 L, Est GFR (MDRD) Non-Af 10 L, BUN/Creatinine Ratio9.7 L, Glucose 190 H, Calcium 9.5, Phosphorus 5.3 H, Albumin 3.7 Micro: Microbiology 10/19/24 02:36 Urine, Clean Catch Urine Culture - Final GPC Poss Enterococcus sp Mixed Gram Positive Organisms 10/19/24 02:36 Blood Culture (Wb) - Anticubital Right Blood Culture - Preliminary No growth in 48 hours. 10/19/24 01:42 Blood Culture (Wb) - Anticubital Right Blood Culture - Preliminary No growth in 48 hours. Radiography Diagnostic Testing: Radiology Impression Chest X-Ray 10/22/24 08:05 IMPRESSION: No acute cardiopulmonary process. Reading Location: [facility] Physical Exam Narrative General: Alert and oriented x3, NAD. Cardiovascular: Normal S1, S2. No rubs, murmurs, or gallops. Respiratory: CTAB Abdomen: Normal bowel sounds, soft, nontender, no guarding or rebound, no organomegaly. Extremities: No clubbing, cyanosis, or edema. Assessment & Plan Assessment/Plan (1) ESRD (end stage renal disease) on dialysis: PLAN: Plan Impression/Plan: The patient is a 44-year-old male with past history of ESRD, type 1 diabetes mellitus, hypertension, CAD status post PCI, and hyperlipidemia. Patient presented to the hospital on 10/19/2024 with dyspnea. Patient was admitted to the hospital for treatment of acute hypoxic respiratory failure attributed to possible community-acquired pneumonia. Nephrology is asked to see the patient because of ESRD and need for dialysis management. ESRD. Patient usually dialyzes on MTuThF schedule at [facility]. Patient was not dialyzed on 10/18/2024 prior to admission. Patient was successfully dialyzed yesterday on 10/21/2024. Will dialyze patient again today on his usual schedule. We can cut back on ultrafiltration today since we have removed over 6 L of fluid in the last 2 days. Plan is to keep patient on his home hemodialysis schedule, so he will be dialyzed again on 10/25/2024 if he is not yet discharged Nephrology plan was discussed with Dr. Emerson 10/22/24919 <Electronically signed by Domenica Salgado MD> Cosigner Signature (if applicable): CC: ~ Signed [facility] Work Phone: 1([phone]) 544-938207-25-2025 Radiology Diagnostic study [facility]07-24-2025 Progress note Author Domenica Álvarez tr [facility] Note Date/Time October 21, 2024 9:22 am [facility] Medical Records Department [address] [place] [address] Progress Note - Nephrology 10/21/24832 MR#: [id number] Acct: [id number] Name: LAURIE GONZALES Rep #:[id number] : 1980 44 From: Domenica delgado MD PCP: Dr. Kristal Sullivan MD Status:ADM I N Location: [place] [address] Subjective Subjective Following up for ESRD. Patient seen for hemodialysis treatment today. Objective Data Objective Data Vital Signs: Vital Signs Temp Pulse Resp BP Pulse Ox O2 Del Method O2 Flow Rate 97 F L 97 16 132/73 H 97 Nasal Cannula 4 10/21/24 08:30 10/21/24 08:30 10/21/24 08:30 10/21/24 08:30 10/21/24 08:30 10/21/24 08:30 10/21/24 08:30 FiO2 61 10/20/24 06:40 Oxygen Flow Rate (L/min) 4 Oxygen Delivery Method Nasal Cannula Weight: 83.2 kg Body Mass Index (BMI) 25.7 Intake & Output: Intake and Output for Last 24 Hours 10/19/24 10/20/24 10/21/24 23:59 23:59 23:59 Intake Total 2000.00 / 2300.00 950 / 1450 1050 / 1050 Output Total 500 / 1500 5930 / 5930 Balance 1500.00 / 800.00 -4980 / -4480 1050 / 1050 Lab / Micro Data 10/21/24 06:05 10/21/24 06:05 Labs: Laboratory Results - last 24 hr 10/21/24 06:05: WBC 10.3, RBC 3.07 L, Hgb 9.5 L, Hct 28.1 L, MCV 91.5, MCH 30.9,MCHC 33.8, RDW Std Deviation 46.7 H, RDW Coeff of Marcella 14.1, Plt Count 195, MPV 9.4, Immature Gran % (Auto) 0.600, Neut % (Auto) 81.1 H, Lymph % (Auto) 8.6 L, Ballard % (Auto) 6.9, Eos % (Auto) 2.2, Baso % (Auto) 0.6, Absolute Neuts (auto) 8.3 H, Absolute Lymphs (auto) 0.88, Nucleated RBC % 0 Physical Exam Narrative General: Alert and oriented x3, NAD. Cardiovascular: Normal S1, S2. No rubs, murmurs, or gallops. Respiratory: Decreased breath sound at bases. Abdomen: Normal bowel sounds, soft, nontender, no guarding or rebound, no organomegaly. Extremities: No clubbing, cyanosis, or edema. Assessment & Plan Assessment/Plan (1) ESRD (end stage renal disease) on dialysis: PLAN: Plan Impression/Plan: The patient is a 44-year-old male with past history of ESRD, type 1 diabetes mellitus, hypertension, CAD status post PCI, and hyperlipidemia. Patient presented to the hospital on 10/19/2024 with dyspnea. Patient was admitted to the hospital for treatment of acute hypoxic respiratory failure attributed to possible community-acquired pneumonia. Nephrology is asked to see the patient because of ESRD and need for dialysis management. ESRD. Patient usually dialyzes on MTuThF schedule at [facility]. Patient was not dialyzed on 10/18/2024 prior to admission. Patient was successfully dialyzed yesterday on 10/20/2024. Patient is still volume up compared to his baseline. Therefore, we will dialyzepatient again today with more ultrafiltration (if BP will tolerate). Plan is to keep patient on his home hemodialysis schedule, so he will be dialyzed again tomorrow if he is not yet discharged. Nephrology plan was discussed with Dr. Emerson 10/21/24921 <Electronically signed by Domenica Salgado MD> Cosigner Signature (if applicable): CC: ~ Signed [facility] Work Phone: 1(327) 242-595607-23-2025 Progress note Author Chris [facility] Note Date/Time October 20, 2024 9:25 am [facility] Medical Records Department [address] [place] [address] Progress Note - Hospitalist 10/19/242001 MR#: [id number] Acct: [id number] Name: LAURIE GONZALES Nelson Rep #:[id number] : 1980 44 From: Chris Emerson DO PCP: Dr. Kristal Sullivan MD Status:ADM I N Location: [place] [address] Reason for Visit Chief Complaint: Shortness of breath Subjective Subjective Patient was seen and examined today, I talked with nephrology briefly about his care, they were not able to access his fistula today for dialysis, they will tryagain tomorrow. Nephrology does not feel that he is fluid overloaded at this time. Patient remains on IV antibiotics for probable pneumonia, he is on 6 L ofoxygen at this time. Objective Data Objective Data Vital Signs: Vital Signs Temp Pulse Resp BP Pulse Ox O2 Del Method O2 Flow Rate 99.3 F H 94 17 100/58 L 93 Nasal Cannula 6 10/19/24 15:00 10/19/24 15:00 10/19/24 15:00 10/19/24 15:00 10/19/24 15:10/19/24 15:00 10/19/24 15:00 Oxygen Flow Rate (L/min) 6 Oxygen Delivery Method Nasal Cannula Weight: 87.5 kg Body Mass Index (BMI) 27.0 Intake & Output: Intake and Output for Last 24 Hours 0710/18/24 10/19/24 23:59 23:59 23:59 Intake Total 1999. / 1999.00 Output Total 500 / 500 Balance 1500.00 / 1500.00 Lab / Micro Data 10/19/24 06:06 10/19/24 06:06 Labs: Laboratory Results - last 24 hr 10/19/24 01:33: POC Glucose 112 H 10/19/24 01:42: WBC 19.1 H, RBC 3.52 L, Hgb 10.8 L, Hct 31.3 L, MCV 88.9, MCH 30.7, MCHC 34.5, RDW Std Deviation 46.5 H, RDW Coeff of Marcella 14.5, Plt Count 269,MPV 9.4, Immature Gran % (Auto) 0.500, Neut % (Auto) 87.1 H, Lymph % (Auto) 5.9 L, Ballard % (Auto) 5.3, Eos % (Auto) 0.7, Baso % (Auto) 0.5, Absolute Neuts (auto)16.7 H, Absolute Lymphs (auto) 1.13, Nucleated RBC % 0, PT 13.5, INR 1.0, APTT 25.3, Sodium 135, Potassium 4.8, Chloride 93 L, Carbon Dioxide 20.6 L, Anion Gap22 H, BUN 104 H*, Creatinine 9.78 H*, Estim Creat Clear Calc 11.30 L, Est GFR (MDRD) Non-Af 6 L, BUN/Creatinine Ratio 10.6, Glucose 118 H, Lactic Acid 1.1, Calcium 10.1, Total Bilirubin 0.35, AST 95 H, ALT 23, Alkaline Phosphatase 78, Total Protein 6.9, Albumin 4.4, Globulin 2.5, Albumin/Globulin Ratio 1.8, b-Hydroxybutyric mmol/L 0.9 H 10/19/24 02:36: Urine Color Straw, Urine Clarity Clear, Urine pH 6.0, Ur Specific Cromwell 1.015, Urine Protein 100 H, Urine Glucose (UA) 100 H, Urine Ketones Negative, Urine Occult Blood 150 H, Urine Nitrite Negative, Urine Bilirubin Negative, Urine Urobilinogen Normal, Ur Leukocyte Esterase Negative, Urine RBC 0-5 SEEN, Urine WBC 0-5 SEEN, Ur Squamous Epith Cells 0-5 SEEN, Ur Transition Epith Cell 0-5 SEEN, Urine Bacteria 1+, Urine Mucus 0 SEEN 10/19/24 06:06: WBC 16.7 H, RBC 3.17 L, Hgb 9.6 L, Hct 28.8 L, MCV 90.9, MCH 30.3, MCHC 33.3, RDW Std Deviation 47.6 H, RDW Coeff of Marcella 14.3, Plt Count 226,MPV 9.7, Immature Gran % (Auto) 0.500, Neut % (Auto) 84.8 H, Lymph % (Auto) 7.8 L, Ballard % (Auto) 5.9, Eos % (Auto) 0.5, Baso % (Auto) 0.5, Absolute Neuts (auto)14.2 H, Absolute Lymphs (auto) 1.30, Nucleated RBC % 0, Sodium 136, Potassium 4.6, Chloride 97 L, Carbon Dioxide 18.2 L, Anion Gap 21 H, BUN 103 H*, Creatinine 9.79 H*, Estim Creat Clear Calc 10.47 L, Est GFR (MDRD) Non-Af 6 L, BUN/Creatinine Ratio 10.5, Glucose 85, Calcium 9.5 ABG Data ABG results: ABG 10/19/24 02:42 Specimen Type ARMANI Sample Site Not entered O2 % 2.0 VBG pH 7.41 VBG pO2 23 L VBG HCO3 24 VBG Total CO2 25 VBG O2 Sat (Calc) 41 L VBG Base Excess -1 POC Mix VBG pCO2 Pt Tmp 37.4 L O2 Delivery Device Cannula Radiography Diagnostic Testing: Radiology Impression Chest X-Ray 10/19/24 02:10 IMPRESSION: Bilateral lung opacities could represent asymmetric edema as well as pneumonia. Advise correlation. Reading Location: [place] [address] Physical Exam Const alert, oriented x3 and no apparent distress General Appearance: cooperative, well kempt and well developed Orientation / Consciousness: awake, oriented to person, oriented to place and oriented to time HEENT normocephalic, head/scalp atraumatic and moist oral mucous membranes Eyes PERRL, EOMs intact bilaterally and conjunctivae normal Neck supple, no JVD, thyroid normal and no carotid bruits General: trachea midline Resp normal respiratory effort, no retractions and no use of accessory muscles Resp Narrative: Diminished breath sounds bilaterally Auscultation: Negative for rales, rhonchi or wheezes Cardio regular rate, regular rhythm, S1 normal heart sound, S2 normal heart sound, no murmurs, no rub and no gallops GI normal to inspection, nondistended, normoactive bowel sounds, soft to palpation,non-tender and non-distended Extremity no clubbing, cyanosis or edema Skin no rashes or lesions noted General Skin Exam: no breakdown Neuro oriented x3, CN's II-XII intact bilaterally, moves all extremities, no focal motor deficits and no sensory deficits noted Sensorium / Orientation: awake and alert Speech: speech normal Psych affect normal Assessment & Plan Assessment/Plan (1) Pneumonia: PLAN: Plan 1. Community-acquired pneumonia-continue Zithromax and Rocephin #2 end-stage renal disease on dialysis-patient will be dialyzed tomorrow #3 type 1 diabetes-patient will remain on his current insulin, sliding scale insulin will be administered as needed #4 coronary artery disease-stable at this time, he remains on his outpatient medication #5 hypoxia secondary to #1-pulse ox will be monitored, patient is currently on nasal cannula oxygen #6 hyperlipidemia-patient is on statin #7 essential hypertension-patient is on amlodipine Total clinical time spent by myself addressing patient's medical issues, reviewing all of his data, and collaborating with the patient's care team: 35 minutes Charges/Coding Visit Charges Inpatient E&M: 02496 Subs Hosp L2 10/20/24 0925 <Electronically signed by Chris Emerson DO> Cosigner Signature (if applicable): CC: ~ Signed [facility] Work Phone: 1(890) 953-245907-23-2025 Progress note Author Sofi Gonzales [facility] Note Date/Time October 20, 2024 12:1 3am [facility] Medical Records Department [address] [place] [address] Progress Note - Hospitalist 10/20/24 0013 MR#: [id number] Acct: [id number] Name: LAURIE GONZALES Rep #:[id number] : 1980 44 From: Sofi Gonzales MD PCP: Dr. Kristal Sullivan MD Status:ADM I N Location: [place] [address] Hospitalist Note Patient with intractable hiccups, will trial thorazine x 1. 10/20/24 0013 <Electronically signed by Sofi Gonzales MD> Cosigner Signature (if applicable): CC: ~ Signed [facility] Work Phone: 1(180) 412-185807-23-2025 Consult note Author Domenica lang [facility] Note Date/Time October 19, 2024 11:1 7pm [facility] Medical Records Department [address] [place] [address] Consultation - Nephrology 10/19/24 1830 MR#: [id number] Acct: [id number] Name: LAURIE GONZALES Rep #:[id number] : 1980 44 From: Domenica delgado MD PCP: Dr. Kristal Sullivan MD Status:ADM I N Location: [place] [address] Assessment & Plan Assessment/Plan (1) ESRD (end stage renal disease) on dialysis: PLAN: Plan Impression/Plan: The patient is a 44-year-old male with past history of ESRD, type 1 diabetes mellitus, hypertension, CAD status post PCI, and hyperlipidemia. Patient presented to the hospital on 10/19/2024 with dyspnea. Patient was admitted to the hospital for treatment of acute hypoxic respiratory failure attributed to possible community-acquired pneumonia. Nephrology is asked to see the patient because of ESRD and need for dialysis management. ESRD. Patient usually dialyzes on MTuThF schedule at [facility]. Patient was not dialyzed on 10/18/2024 prior to admission. We attempted to dialyze the patient earlier today. However, his left lower arm AV fistula infiltrated. Since patient is not volume overloaded and potassium level is not severely high, we will not retry to cannulate the fistula. Will retry again tomorrow. Nephrology plan was discussed with Dr. Emerson HPI Consult Data Date of Consult: 10/19/24 HPI Narrative Reason for Consultation: ESRD. HPI Narrative: The patient is a 44-year-old male with past history of ESRD, type 1 diabetes mellitus, hypertension, CAD status post PCI, and hyperlipidemia. Patient presented to the hospital on 10/19/2024 with dyspnea. Patient was admitted to the hospital for treatment of acute hypoxic respiratory failure attributed to community-acquired pneumonia. Nephrology is asked to see the patient because of ESRD and need for dialysis management. Patient dialyzes on MTuThF dialysis schedule at [facility]. Patient denies current chest pain. Dyspnea has improved. There is no edema of the lower extremities. His main complaints are back, neck and calf pain. [facility] Medical History Bloodstream infection Hypertension High cholesterol [...] Medications ?Medication ?Instructions ?Recorded ?Last Taken ?Type aspirin 81 mg tablet,delayed 81 mg PO BREAKFAST #90 ta bs 02/25/24 10/18/24 08:33 Rx release clopidogrel 75 mg tablet 75 mg PO DAILY #90 tabs 01/3010/18/24 08:33 Rx rosuvastatin 10 mg tablet 10 mg PO DAILY #90 tabs 01/3010/18/24 08:34 Rx sevelamer carbonate 800 mg tablet 800 mg PO DAILY kidn eys 06/18/24 10/18/24 08:34 History blood-glucose sensor (Dexcom G6 #9 ea 07/23/24 Unknown Rx Sensor device) blood-glucose transmitter (Dexcom #1 ea 07/23/24 Unkno wn Rx G6 Transmitter device) cholecalciferol (vitamin D3) 50 150 mcg PO DAILY dieta ry supplement 07/28/24 10/18/24 08:33 History mcg (2,000 unit) capsule amlodipine 5 mg tablet 10 mg (2 x 5 mg) PO DAILY #9 0 tabs 08/11/24 10/18/24 08:33 Rx insulin aspart U-100 100 unit/mL 80 unit (0.8 mL) cont inuous 08/20/24 10/18/24 Rx subcutaneous solution (Novolog subcutaneous infusion . continuous U-100 Insulin aspart) #72 mL carvedilol 25 mg tablet 25 mg PO QDAY heart 09/07/24 10/18/24 08:33 History pantoprazole 40 mg tablet,delayed 40 mg PO BID #180 ta bs 09/07/24 10/18/24 14:34 Rx release insulin pump cart,auto,BT,G6/7 #30 ea 09/27/24 Unknown Rx (Omnipod 5 G6-G7 Pods (Gen 5) subcutaneous cartridge) Allergy/AdvReac Type Severity Reaction Status Date / Time No Known Allergies Allergy Verified 09/07/24 13:08 Family History Mother Diabetes Thyroid disorder Grandmother Diabetes Grandfather Diabetes Surgical History Hx of surgical procedure History of cardiac catheterization Hx of surgical procedure History of coronary artery stent placement History of surgery on lower extremity Social History Smoking Status: Never smoker alcohol intake: never substance use type: does not use ROS ROS Narrative As per HPI. Otherwise noncontributory. Physical Exam Narrative General: Alert and oriented x3, NAD. HEENT: Normocephalic, atraumatic. Mucous membrane moist without erythema. PERRLA, EOMI. Hearing is intact. Neck: Supple, no JVD. Trachea is midline. No thyromegaly or lymphadenopathy. Cardiovascular: Normal S1, S2. No rubs, murmurs, or gallops. Respiratory: Lungs are clear to auscultation bilaterally. No wheezing, rhonchi,or rales. Abdomen: Normal bowel sounds, soft, nontender, no guarding or rebound, no organomegaly. Extremities: No clubbing, cyanosis, or edema. Musculoskeletal: Full passive range of motion, no joint swelling. Psychiatric: Normal mood and affect. Skin: Warm and dry, no rash. Neurologic: Cranial nerve II to XII are grossly intact. No focal neurologic deficits. Lab / Micro Data 10/19/24 06:06 10/19/24 06:06 Labs: Laboratory Results - last 24 hr 10/19/24 01:33: POC Glucose 112 H 10/19/24 01:42: WBC 19.1 H, RBC 3.52 L, Hgb 10.8 L, Hct 31.3 L, MCV 88.9, MCH 30.7, MCHC 34.5, RDW Std Deviation 46.5 H, RDW Coeff of Marcella 14.5, Plt Count 269,MPV 9.4, Immature Gran % (Auto) 0.500, Neut % (Auto) 87.1 H, Lymph % (Auto) 5.9 L, Ballard % (Auto) 5.3, Eos % (Auto) 0.7, Baso % (Auto) 0.5, Absolute Neuts (auto)16.7 H, Absolute Lymphs (auto) 1.13, Nucleated RBC % 0, PT 13.5, INR 1.0, APTT 25.3, Sodium 135, Potassium 4.8, Chloride 93 L, Carbon Dioxide 20.6 L, Anion Gap22 H, BUN 104 H*, Creatinine 9.78 H*, Estim Creat Clear Calc 11.30 L, Est GFR (MDRD) Non-Af 6 L, BUN/Creatinine Ratio 10.6, Glucose 118 H, Lactic Acid 1.1, Calcium 10.1, Total Bilirubin 0.35, AST 95 H, ALT 23, Alkaline Phosphatase 78, Total Protein 6.9, Albumin 4.4, Globulin 2.5, Albumin/Globulin Ratio 1.8, b-Hydroxybutyric mmol/L 0.9 H 10/19/24 02:36: Urine Color Straw, Urine Clarity Clear, Urine pH 6.0, Ur Specific Cromwell 1.015, Urine Protein 100 H, Urine Glucose (UA) 100 H, Urine Ketones Negative, Urine Occult Blood 150 H, Urine Nitrite Negative, Urine Bilirubin Negative, Urine Urobilinogen Normal, Ur Leukocyte Esterase Negative, Urine RBC 0-5 SEEN, Urine WBC 0-5 SEEN, Ur Squamous Epith Cells 0-5 SEEN, Ur Transition Epith Cell 0-5 SEEN, Urine Bacteria 1+, Urine Mucus 0 SEEN 10/19/24 06:06: WBC 16.7 H, RBC 3.17 L, Hgb 9.6 L, Hct 28.8 L, MCV 90.9, MCH 30.3, MCHC 33.3, RDW Std Deviation 47.6 H, RDW Coeff of Marcella 14.3, Plt Count 226,MPV 9.7, Immature Gran % (Auto) 0.500, Neut % (Auto) 84.8 H, Lymph % (Auto) 7.8 L, Ballard % (Auto) 5.9, Eos % (Auto) 0.5, Baso % (Auto) 0.5, Absolute Neuts (auto)14.2 H, Absolute Lymphs (auto) 1.30, Nucleated RBC % 0, Sodium 136, Potassium 4.6, Chloride 97 L, Carbon Dioxide 18.2 L, Anion Gap 21 H, BUN 103 H*, Creatinine 9.79 H*, Estim Creat Clear Calc 10.47 L, Est GFR (MDRD) Non-Af 6 L, BUN/Creatinine Ratio 10.5, Glucose 85, Calcium 9.5 ABG Data ABG results: ABG 10/19/24 02:42 Specimen Type ARMANI Sample Site Not entered O2 % 2.0 VBG pH 7.41 VBG pO2 23 L VBG HCO3 24 VBG Total CO2 25 VBG O2 Sat (Calc) 41 L VBG Base Excess -1 POC Mix VBG pCO2 Pt Tmp 37.4 L O2 Delivery Device Cannula Imaging Radiology Impression Chest X-Ray 10/19/24 02:10 IMPRESSION: Bilateral lung opacities could represent asymmetric edema as well as pneumonia. Advise correlation. Reading Location: [place] [address] 10/19/24 [facility] [place] <Electronically signed by Domenica Salgado MD> Cosigner Signature (if applicable): CC: Dr. Kristal Sullivan MD~ Signed [facility] Work Phone: 1(995) 786-229507-22-2025 History and physical note Author Chava Naik [facility] Note Date/Time October 19, 2024 3:37 am [facility] Medical Records Department [address] [place] [address] History & Physical Exam 10/19/24 0330 MR#: [id number] Acct: [id number] Name: LAURIE GONZALES Rep #:[id number] : 1980 44 From: Chava Naik MD PCP: Dr. Kristal Sullivan MD Status:ADM I N [facility] - General General Date of Admission: 10/19/24 Date of Service: 10/19/24 Chief Complaint: Shortness of breath HPI Narrative LAURIE GONZALES, is a 44 M who presents to the emergency room with chief complaint of shortness of breath and generalized illness. Patient has significant past medical history of diabetes, hypertension, end-stage renal disease on dialysis Friday and Friday by Dr. Diaz. Patientstates that he was feeling nauseous and as if he were in DKA and therefore he was not able to attend dialysis earlier yesterday. When he went to [employer] [facility] yesterday he noticed that his sugar was high above the meters ability toread and again with self 10 units of insulin for a total of 120 units in his attempt to keep himself out of DKA but despite that he continued to have nausea and vomiting. He denies any sick contacts. He states now when he lays down he feels very short of breath and that he requires oxygen here in the emergency room to maintain his oxygen saturation above 90%. Patient has elevated white blood cell count with a left shift and chest x-ray reveals possible pneumonia. Patient will be admitted placed on Rocephin and azithromycin and nephrology consulted for dialysis. [facility] Medical History Bloodstream infection Hypertension High cholesterol [...] x #150 ea 02/26/22 Unkno wn Rx /32 (BD Ultra-Fine Carol Pen Needle) aspirin 81 mg tablet,delayed 81 mg PO BREAKFAST #90 ta bs 02/25/24 08/30/24 Rx release clopidogrel 75 mg tablet 75 mg PO DAILY #90 tabs 01/3008/30/24 Rx rosuvastatin 10 mg tablet 10 mg PO DAILY #90 tabs 01/3008/10/24 Rx insulin syringe-needle U-100 0.3 #100 ea 03/30/24 Unkn own Rx mL 31 gauge x 5/16 (BD Insulin Syringe Ultra-Fine) pen needle, diabetic 32 gauge x #50 ea 03/30/24 Unknow n Rx 32 (BD Ultra-Fine Carol Pen Needle) blood-glucose,environmental department manager,cont #1 ea 04/01/24 Unknown Rx (Dexcom G6 [employer]) sevelamer carbonate 800 mg tablet 800 mg PO DAILY 05/3008/10/24 History blood-glucose sensor (Dexcom G6 #9 ea 07/23/24 Unknown Rx Sensor device) blood-glucose transmitter (Dexcom #1 ea 07/23/24 Unkno wn Rx G6 Transmitter device) cholecalciferol (vitamin D3) 50 150 mcg PO DAILY 07/2808/09/24 History mcg (2,000 unit) capsule amlodipine 5 mg tablet 10 mg (2 x 5 mg) PO DAILY #9 0 tabs 08/11/24 08/10/24 Rx insulin aspart U-100 100 unit/mL 80 unit (0.8 mL) cont inuous 08/20/24 Unknown Rx subcutaneous solution (Novolog subcutaneous infusion . continuous U-100 Insulin aspart) #72 mL carvedilol 25 mg tablet 25 mg PO QDAY 09/07/24 Unkno wn History pantoprazole 40 mg tablet,delayed 40 mg PO BID #180 ta bs 09/07/24 Unknown Rx release insulin pump cart,auto,BT,G6/7 #30 ea 09/27/24 Unknown Rx (Omnipod 5 G6-G7 Pods (Gen 5) subcutaneous cartridge) Allergy/AdvReac Type Severity Reaction Status Date / Time No Known Allergies Allergy Verified 09/07/24 13:08 Family History Mother Diabetes Thyroid disorder Grandmother Diabetes Grandfather Diabetes Surgical History Hx of surgical procedure History of cardiac catheterization Hx of surgical procedure History of coronary artery stent placement History of surgery on lower extremity Social History Smoking Status: Never smoker alcohol intake: never substance use type: does not use ROS Constitutional Constitutional: Reports chills, fever(s) and weakness Eyes Eyes: Denies blurry vision ENT HEENT: Denies abnormal hearing Cardiovascular Cardiovascular: Denies chest pain Respiratory/Chest Respiratory/Chest: Reports cough and shortness of breath at rest Gastrointestinal Gastrointestinal: Reports nausea and vomiting; Denies abdominal pain Genitourinary Genitourinary: Denies dysuria Musculoskeletal Musculoskeletal: Denies back pain Integumentary Integumentary: Reports dry skin Neurologic Neurologic: Denies abnormal gait or confusion Psychiatric Psychiatric: Denies anxiety Vital Signs Vital Signs Vital Signs: 10/19/24 01:31 10/19/24 01:36 10/19/24 01:37 Temperature 100.1 F H 100.1 F H Temperature Source Oral Oral Pulse Rate 99 100 Respiratory Rate 24 H 24 H Respiratory Pattern Tachypnea Blood Pressure 128/75 H 128/75 H Blood Pressure Mean 92 92 Pulse Ox 87 93 Oxygen Delivery Method Room Air Nasal Cannula Oxygen Flow Rate (L/min) 2 10/19/24 01:48 10/19/24 02:39 10/19/24 03:16 Temperature 99.9 F H 100.1 F H Temperature Source Oral Oral Pulse Rate 99 98 Respiratory Rate 20 H 21 H Respiratory Pattern Blood Pressure 108/70 99/56 L Blood Pressure Mean 82 70 Pulse Ox 94 97 94 Oxygen Delivery Method Room Air Nasal Cannula Nasal Cannula Oxygen Flow Rate (L/min) 2 2 10/19/24 03:16 Temperature 100.1 F H Temperature Source Pulse Rate 98 Respiratory Rate 21 H Respiratory Pattern Blood Pressure 99/56 L Blood Pressure Mean 70 Pulse Ox 94 Oxygen Delivery Method Oxygen Flow Rate (L/min) Weight Weight: 205 lb 14.588 oz Body Mass Index (BMI) 28.8 Physical Exam Const alert and oriented x3 General Appearance: cooperative and well developed HEENT normocephalic and head/scalp atraumatic Eyes PERRL Neck no lymphadenopathy Lymph Lymphatic: no lymphadenopathy noted Resp normal air movement and clear to auscultation bilaterally Effort and Inspection: tachypneic Auscultation: Negative for rales, rhonchi or wheezes Cardio regular rate, regular rhythm, S1 normal heart sound and S2 normal heart sound GI normal to inspection, nondistended, normoactive bowel sounds Extremity normal capillary refill Skin General Skin Exam: turgor normal Neuro no focal motor deficits and no sensory deficits noted Psych thought process normal, cooperative and affect normal Results Lab / Micro Data 10/19/24 01:42 10/19/24 01:42 Labs: Laboratory Results - last 24 hr 10/19/24 01:33: POC Glucose 112 H 10/19/24 01:42: WBC 19.1 H, RBC 3.52 L, Hgb 10.8 L, Hct 31.3 L, MCV 88.9, MCH 30.7, MCHC 34.5, RDW Std Deviation 46.5 H, RDW Coeff of Marcella 14.5, Plt Count 269,MPV 9.4, Immature Gran % (Auto) 0.500, Neut % (Auto) 87.1 H, Lymph % (Auto) 5.9 L, Ballard % (Auto) 5.3, Eos % (Auto) 0.7, Baso % (Auto) 0.5, Absolute Neuts (auto)16.7 H, Absolute Lymphs (auto) 1.13, Nucleated RBC % 0, PT 13.5, INR 1.0, APTT 25.3, Sodium 135, Potassium 4.8, Chloride 93 L, Carbon Dioxide 20.6 L, Anion Gap22 H, BUN 104 H*, Creatinine 9.78 H*, Estim Creat Clear Calc 11.30 L, Est GFR (MDRD) Non-Af 6 L, BUN/Creatinine Ratio 10.6, Glucose 118 H, Lactic Acid 1.1, Calcium 10.1, Total Bilirubin 0.35, AST 95 H, ALT 23, Alkaline Phosphatase 78, Total Protein 6.9, Albumin 4.4, Globulin 2.5, Albumin/Globulin Ratio 1.8, b-Hydroxybutyric mmol/L 0.9 H 10/19/24 02:36: Urine Color Straw, Urine Clarity Clear, Urine pH 6.0, Ur Specific Cromwell 1.015, Urine Protein 100 H, Urine Glucose (UA) 100 H, Urine Ketones Negative, Urine Occult Blood 150 H, Urine Nitrite Negative, Urine Bilirubin Negative, Urine Urobilinogen Normal, Ur Leukocyte Esterase Negative, Urine RBC 0-5 SEEN, Urine WBC 0-5 SEEN, Ur Squamous Epith Cells 0-5 SEEN, Ur Transition Epith Cell 0-5 SEEN, Urine Bacteria 1+, Urine Mucus 0 SEEN ABG Data ABG results: ABG 10/19/24 02:42 Specimen Type ARMANI Sample Site Not entered O2 % 2.0 VBG pH 7.41 VBG pO2 23 L VBG HCO3 24 VBG Total CO2 25 VBG O2 Sat (Calc) 41 L VBG Base Excess -1 POC Mix VBG pCO2 Pt Tmp 37.4 L O2 Delivery Device Cannula Imaging Radiology Impression Chest X-Ray 10/19/24 02:10 IMPRESSION: Bilateral lung opacities could represent asymmetric edema as well as pneumonia. Advise correlation. Reading Location: [place] [address] Assessment & Plan Assessment/Plan (1) Pneumonia: (2) Missed dialysis: (3) Acute hypoxemic respiratory failure: (4) DM type 1 (diabetes mellitus, type 1): QUALIFIERS: Diabetes mellitus complication status: with unspecified complications Qualified Code(s): E10.8 - Type 1 diabetes mellitus with unspecified complications (5) Hypertension: QUALIFIERS: Hypertension type: unspecified Qualified Code(s): I10- Essential (primary) hypertension PLAN: Plan 1 acute hypoxic respiratory failure secondary to pneumonia?admit patient to progressive care unit, oxygen and supportive care to maintain SpO2 greater than 90%, continue Rocephin and azithromycin initiated in the emergency room, albuterol inhalation treatment every 4 hours as needed. 2. End-stage renal disease?patient missed dialysis yesterday we will consult nephrology Dr. Diaz as patient is known to him to arrange for dialysis 3. Diabetes type 1?continue routine insulin regimen 4. Hypertension?continue routine home medication 5. DVT prophylaxis?SCDs Charges/Coding Visit Charges Inpatient E&M: 16634 Init Hosp L2 10/19/24 0338 <Electronically signed by Chava Naik MD> Cosigner Signature (if applicable): CC: Dr. Kristal Sullivan MD; Dr. Chava Naik MD~ Signed [facility] Work Phone: [phone]) 861-186107-22-2025 Discharge summary Author Ford Patricia [facility] Note Date/Time October 19, 2024 3:11 am [facility] Medical Records Department [address] [place] [address] Emergency Department Summary 10/19/24 MR#: [id number] Acct: [id number] Name: LAURIE GONZALES Rep #:[id number] : 1980 44 From: Ford Patricia DO PCP: Dr. Kristal Sullivan MD Status:PRE E R Location: ED HPI History of Present Illness Chief Complaint: General Illness Narrative Narrative: Patient is a 44-year-old male with past medical history of hypertension, diabetes, end-stage renal disease on dialysis Friday, Friday, and Fridaywho presented to the emergency department with concern of shortness of breath and not feeling well overall. Patient states that he did miss his dialysis session today as he states that he was not feeling well. Patient notesthat yesterday he went to [employer] [facility] worked out and noted that his glucose was running high to the point where the meter was not reading the sugar level. He states that he continuously gave himself 10 units of insulin for a total of 120 units and attempts to keep himself out of DKA. Patient notes that today hissugars have been well but notes that he also has had nausea vomiting denies any sick contacts. He states that if he tries to lay down he feels very short of breath. Patient notes that he is not normally on oxygen which she is on here inthe emergency department [facility] Medical History Bloodstream infection Hypertension High cholesterol [...] kit #100 ea 11/26/21 Unkno wn Rx ([employer] Delica Plus Lancing Device kit) pen needle, diabetic 32 gauge x #150 ea 02/26/22 Unkno wn Rx 5/32 (BD Ultra-Fine Carol Pen Needle) aspirin 81 mg tablet,delayed 81 mg PO BREAKFAST #90 ta bs 02/25/24 08/30/24 Rx release clopidogrel 75 mg tablet 75 mg PO DAILY #90 tabs 01/3008/30/24 Rx rosuvastatin 10 mg tablet 10 mg PO DAILY #90 tabs 01/3008/10/24 Rx insulin syringe-needle U-100 0.3 #100 ea 03/30/24 Unkn own Rx mL 31 gauge x 5/16 (BD Insulin Syringe Ultra-Fine) pen needle, diabetic 32 gauge x #50 ea 03/30/24 Unknow n Rx 5/32 (BD Ultra-Fine Carol Pen Needle) blood-glucose,environmental department manager,cont #1 ea 04/01/24 Unknown Rx (Dexcom G6 [employer]person [employer]) sevelamer carbonate 800 mg tablet 800 mg [...] DAILY #9 0 tabs 08/11/24 08/10/24 Rx insulin aspart U-100 100 unit/mL 80 unit (0.8 mL) cont inuous 08/20/24 Unknown Rx subcutaneous solution (Novolog subcutaneous infusion . continuous U-100 Insulin aspart) #72 mL carvedilol 25 mg tablet 25 mg PO QDAY 09/07/24 Unkno wn History pantoprazole 40 mg tablet,delayed 40 mg PO BID #180 ta bs 09/07/24 Unknown Rx release insulin pump cart,auto,BT,G6/7 #30 ea 09/27/24 Unknown Rx (Omnipod 5 G6-G7 Pods (Gen 5) subcutaneous cartridge) Allergy/AdvReac Type Severity Reaction Status Date / Time No Known Allergies Allergy Verified 09/07/24 13:08 Family History Mother Diabetes Thyroid disorder Grandmother Diabetes Grandfather Diabetes Surgical History Hx of surgical procedure History of cardiac catheterization Hx of surgical procedure History of coronary artery stent placement History of surgery on lower extremity Social History Smoking Status: Never smoker alcohol intake: never substance use type: does not use ROS ROS ED ROS Narrative Constitutional: Complains of chills denies fevers, headache Eyes: Denies double vision blurry vision Cardiovascular: Denies chest pain Respiratory: Complains of shortness of breath as noted above as well as cough Abdomen: Complains of nausea vomiting denies any abdominal pain : Denies any urinary symptoms Neurological: Complains of generalized weakness Musculoskeletal: Denies back pain Skin: Denies any rashes or lesions EXAM Physical Exam Narrative Exam Narrative: General: Patient is lying in bed rest comfortably did not appear to be acute distress Head: Atraumatic, normocephalic Eyes: PERRL bilaterally, EOMI bilateral, no conjunctival injection noted Neck: Soft, supple, trachea midline Cardiovascular: Regular rate and rhythm no murmurs gallops rubs noted Respiratory: Clear to auscultation bilaterally Abdomen: Soft, nondistended, nontender to palpation Extremities: +5/5 strength noted in the bilateral upper and lower extremities Neurological: Patient following commands knew that he was at [facility] the year is 2024 Skin: Warm, dry, intact no rashes or lesions noted Const Vital Signs: 10/19/24 01:31 10/19/24 01:36 10/19/24 01:37 Temperature 100.1 F H 100.1 F H Temperature Source Oral Oral Pulse Rate 99 100 Respiratory Rate 24 H 24 H Respiratory Pattern Tachypnea Blood Pressure 128/75 H 128/75 H Blood Pressure Mean 92 92 Pulse Ox 87 93 Oxygen Delivery Method Room Air Nasal Cannula Oxygen Flow Rate (L/min) 2 10/19/24 01:48 10/19/24 02:39 Temperature 99.9 F H Temperature Source Oral Pulse Rate 99 Respiratory Rate 20 H Respiratory Pattern Blood Pressure 108/70 Blood Pressure Mean 82 Pulse Ox 94 97 Oxygen Delivery Method Room Air Nasal Cannula Oxygen Flow Rate (L/min) 2 Sepsis Attestation Sepsis Organ Dysfunction Criteria Present: Creatinine > 2.0 mg/dL MDM MDM MDM Narrative Medical decision making narrative: Patient is a 44-year-old male who presented to the emergency department the chief complaint of nausea vomiting not feeling well with hyperglycemia and shortness of breath. On the differential diagnose includes but not limited to ACS, pneumonia, pneumothorax, UTI, DKA. Once workup is obtained and reviewed hewill be reevaluated. Patient will not be given 30 cc/kg of IV fluids as there is concern for hypervolemic state therefore he will be given 1 L of IV fluids which was ordered at 1:47 AM. Patient was noted to be febrile here in the emergency department he will be given a gram of Tylenol. Patient CBC was reviewed was significant for leukocytosis of 19,000, hemoglobin 10.8, white count of 269. Patient INR normal at 1, PT of 13.5. Patient's venous blood gas showed a pH of 7.41. Patient sodium normal 135, potassium normal 4.8, CO2 level low at 20.6, anion gap of 22, creatinine was 9.78 and a BUN of 104. Patient glucose was 118. Patient's AST and ALT were 95 and 23 respectively. Patient's beta-hydroxybutyrate was 0.9. Patient's urinalysis pending. Patient's chest x- ray was reviewed which showed bilateral lung opacities which could represent asymmetric edema as well as pneumonia. Patient was ordered 2 g Rocephin and azithromycin at 2:37 AM. Patient's EKG reviewed showed sinus rhythm rate of 98 bpm. Reperfusion assessment performed at 2:50 AM and patient remains normotensive therefore no vasopressors indicated. At this point time we will discuss case with hospitalist for admission. Discussed case with admitting physician Dr. Naik who accept patient for admission. Patient notified is agreeable to plan all course concerns answered. Lab Data Labs: Laboratory Results - last 24 hr 10/19/24 10/19/24 01:33 01:42 WBC 19.1 H RBC 3.52 L Hgb 10.8 L Hct 31.3 L MCV 88.9 MCH 30.7 MCHC 34.5 RDW Std Deviation 46.5 H RDW Coeff of Marcella 14.5 Plt Count 269 MPV 9.4 Immature Gran % (Auto) 0.500 Neut % (Auto) 87.1 H Lymph % (Auto) 5.9 L Ballard % (Auto) 5.3 Eos % (Auto) 0.7 Baso % (Auto) 0.5 Absolute Neuts (auto) 16.7 H Absolute Lymphs (auto) 1.13 Nucleated RBC % 0 PT 13.5 INR 1.0 APTT 25.3 Sodium 135 Potassium 4.8 Chloride 93 L Carbon Dioxide 20.6 L Anion Gap 22 H BUN 104 H* Creatinine 9.78 H* Estim Creat Clear Calc 11.30 L Est GFR (MDRD) Non-Af 6 L BUN/Creatinine Ratio 10.6 Glucose 118 H Lactic Acid 1.1 Calcium 10.1 Total Bilirubin 0.35 AST 95 H ALT 23 Alkaline Phosphatase 78 Total Protein 6.9 Albumin 4.4 Globulin 2.5 Albumin/Globulin Ratio 1.8 b-Hydroxybutyric mmol/L 0.9 H POC Glucose 112 H ABG Data ABG results: ABG 10/19/24 02:42 Specimen Type ARMANI Sample Site Not entered O2 % 2.0 VBG pH 7.41 VBG pO2 23 L VBG HCO3 24 VBG Total CO2 25 VBG O2 Sat (Calc) 41 L VBG Base Excess -1 POC Mix VBG pCO2 Pt Tmp 37.4 L O2 Delivery Device Cannula Radiography Diagnostic Testing: Clinical Impression(s) from Imaging Studies Chest X-Ray 10/19/24 02:10 IMPRESSION: Bilateral lung opacities could represent asymmetric edema as well as pneumonia. Advise correlation. Reading Location: [place] [address] Discharge Plan Triage Chief Complaint: General Illness ED Provider: Ford Patricia Dx/Rx/DC Orders Clinical Impression: Acute hypoxemic respiratory failure, DM type 1 (diabetes mellitus, type 1), Hypertension, Missed dialysis, Pneumonia Prescriptions: No Action (DME) FreeStyle Lite Strips Strip See Rx Instructions .Route Qty: 100 6RF Rx Instructions: 3x/day clopidogrel 75 mg tablet 75 mg PO DAILY Qty: 90 3RF aspirin [...] release 12 hr 1 tab PO Q12H PRN (Reason: sinus symptoms) carvedilol 25 mg tablet 25 mg PO QDAY Rx Instructions: must administer with a meal/food pantoprazole 40 mg tablet,delayed release (DR/EC) 40 mg PO BID Qty: 180 1RF Rx Instructions: take 30 minutes before breakfast and dinner amlodipine 5 mg tablet 10 mg PO DAILY Qty: 90 3RF (DME) lancing device with lancets [OneTouch Delica [...] 1RF Rx Instructions: tid (DME) Dexcom G6 Salesperson Books Misc See Rx Instructions .Route Qty: 1 [...] continuous subcutaneous infusion .continuous Qty: 72 1RF (DME) Omnipod 5 G6-G7 Pods (Gen 5) Cartridge See Rx Instructions .Route Qty: 30 1RF Rx Instructions: change every 3 days Primary Care Provider: Kristal Sullivan Referrals: Kristal Sullivan MD [Primary Care Provider] - Print Language: Cuban Disposition Disposition: [facility] What to do if you have Problems For any increased pain, shortness of breath, bleeding, nausea or vomiting, chestpain, or any unexpected problems, contact your Primary Care Provider. Call [facility] ([phone]) or report to the closest Emergency Room. Call 911 if necessary. 10/19/24 0311 <Electronically signed by Ford Patricia DO> Cosigner Signature (if applicable): CC: Dr. Kristal Sullivan MD ~ Signed [facility] Work Phone: [phone]) 634-219207-22-2025 [facility]07-22-2025 Radiology Diagnostic study [facility]07-17-2025 NoteHNO ID: [id number] Author: BG JENNINGS RN Service: ? Author [...] results of studies that were obtained outside [facility] facilities. -Explained lifetime immunosuppression therapy and frequency of blood draws/labs post-op and post-op course of treatment. Method of Instruction: Group class instruction Written instruction/Handouts Verbal instruction Video Computer Patient/Family Response: Patient asked appropriate questions, which were answered satisfactorily. Bg Jennings RN Kidney/Pancreas [facility] History of Present illness Narrative* Bg Jennings RN - 10/14/2024 11:07 AM EDT Kidney/Pancreas Transplant Wait List Education Note Type [...] Candidates about Simultaneous Kidney- Pancreas Allocation Policy -Current SRTR Program Summary -Informed [...] results of studies that were obtained outside [facility] facilities. -Explained lifetime immunosuppression therapy and frequency of blood draws/labs post-op and post-opcourse of treatment. Method of Instruction: Group class instruction Written instruction/Handouts Verbal instruction Video Computer Patient/Family Response: Patient asked appropriate questions, which were answered satisfactorily. Bg Jennings RN Kidney/Pancreas Pre-Plastics Bench Mechanic documented in this encounterKind[facility]-2025 Telephone encounter Note * Telephone Encounter - Sindy Alonzo - 10/06/2024 11:10 AM EDT Spoke with patient to confirm scheduled waitlist kidney transplant re-evaluation for next week. Did they receive their schedule? Yes Remind the patient to sign up for MyChart if they have not already - Yes Sindy Alonzo [facility]07-09-2025 Miscellaneous Notes* Telephone Encounter - Sindy Alonzo - 10/06/2024 11:10 AM EDT Spoke with patient to confirm scheduled waitlist kidney transplant re-evaluation for next week. Did they receive their schedule? Yes Remind the patient to sign up for MyChart if they have not already - Yes Sindy Alonzo documented in this encounterKindred Hospital [facility]ima06-24-2025 NoteHNO ID: [id number] Author: KRISTAL SULLIVAN MD Service: ? Author Type: Physician Type: Progress Notes Filed: 09/22/2024 11:51 Note Text: Reason for Visit Follow up HPI Laurie Gonzales is a 44-year-old male with a history of KS, CKD on dialysis, and dysphagia, presenting for follow-up after a recent hospitalization for a port infection. Laurie was hospitalized on the for a port infection related to his dialysis. He initially presented to the ED with emesis and a fever of 103 degreeF, and was subsequently transferred to [facility], where he was admitted for a week. The infection necessitated the removal of his port. He is currently on IV antibiotics, with his last dose scheduled for this Friday. During his hospitalization, he was evaluated by a prepress operator due to dysphagia. An endoscopy revealed a stricture, which was dilated, and biopsies were taken from erythematous areas, all of which returned negative results. Laurie has a functioning AV fistula in his left forearm, which has been in place since January 04 of last year. He is currently undergoing dialysis at [facility] on Mondays, Wednesdays, and Fridays. He reports being contacted by the [facility] as a backup for a pancreas transplant and is hopeful to return to work soon. Laurie was previously employed part-time at [employer] but was let go due to multiple surgeries and his current medical condition. He has since been approved for Social Security but had to wait five months without income before receiving benefits. He is not eligible for unemployment due to his part-time status. He is under the care of manager green Dr. Mckeon, whom he has seen twice. Most of his interactions are with Dr. Mckeon's nurse at [facility], whom he describes as super nice. Laurie has a phone appointment with the transplant center at the [facility] on September 04 and an in-person appointment [...] 20 mg tablet alcohol swabs padm Insulin [place], Disposable, (BD ULTRA-FINE CAROL PEN NEEDLE) 32 gauge x 5/32 ndle Zn Zaesrel-Dthbxxvvyte-Mfd (AMERIGEL) gel Nut.Tx.Gluc.Intol,Lac-Free,Soy (GLUCERNA SHAKE) liqd insulin [...] dialysis catheter, necessitating removal and hospitalization at [facility] for over a week. Completed a course [...] in the left f (more content not included)...[facility]06[facility] History of Present illness Narrative* Kristal Sullivan MD - 09/21/2024 1:10 PM EDT Reason for Visit Follow up HPI Laurie Gonzales is a 44-year-old male with a history of KS, CKD on dialysis, and dysphagia, presenting for follow-up after a recent hospitalization for a port infection. Laurie was hospitalized on the for a port infection related to his dialysis. He initially presented to the ED with emesis and a fever of 103 degreeF, and was subsequently transferred to [facility], where he was admitted for a week. The infection necessitated the removal of his port. He is currentlyon IV antibiotics, with his last dose scheduled for this Friday. During his hospitalization, he was evaluated by a prepress operator due to dysphagia. An endoscopyrevealed a stricture, which was dilated, and biopsies were taken from erythematous areas, all of which returned negative results. Laurie has a functioning AV fistula in his left forearm, which has been in place since January 04 of last year. He is currently undergoing dialysis at [facility] on Mondays, Wednesdays, and Fridays. He reports being contacted by the [facility] as a backup for a pancreas transplant and is hopeful to return to work soon. Laurie was previously employed part-time at [employer] but was let go due to multiple surgeries and his current medical condition. He has since been approved for Social Security but had to wait five months without income before receiving benefits. He is not eligible for unemployment due to his part-time status. He is under the care of manager green Dr. Mckeon, whom he has seen twice. Most of his interactions are with Dr. Mckeon's nurse at [facility], whom he describes as super nice. Laurie has a phone appointment with the transplant center at the [facility] on September 04 and an in-person appointment [...] 20 mg tablet alcohol swabs padm Insulin [place], Disposable, (BD ULTRA-FINE CAROL PEN NEEDLE) 32 gauge x 5/32 ndle Zn Wdpvens-Uwpnvnyvjpo-Ndl (AMERIGEL) gel Nut.Tx.Gluc.Intol,Lac-Free,Soy (GLUCERNA SHAKE) liqd insulin [...] dialysis catheter, necessitating removal and hospitalization at [facility] for over a week. Completed a course [...] in the left forearm, attending sessions at [facility] on Friday, Friday, and Friday. Patient [...] excuse any unintended typographical errors. Recording using ambient [employer] software for draft documentation of the visit was discussed with the patient/authorized regional sales representative; all questions welcomed and answered. Patient/authorized regional sales representative agreed to proceed Kristal Sullivan MD documented in this encounterKindred Hospital [facility]ima06-24-2025 Instructions* Patient Instructions* Kristal Sullivan MD - 09/21/2024 12:20 PM EDT We discussed your recent health concerns and ongoing care: - Dialysis and Fistula Use: - You are currently undergoing dialysis at [facility] on Friday, Friday, and Friday. - [...] You recently underwent an endoscopy with your prepress operator, Dr. Andres Angulo. A stricture in your throat was identified and treated with balloon dilation. Biopsies taken during the procedurewere negative. - Anemia and Lab Work: - Your hemoglobin level was 9.3, which is consistent with anemia of chronic disease. - You are not currently receiving iron infusions, but this may be revisited if needed. - A significant amount of blood work has been ordered by the transplant team at the [facility]. You can complete this testing locally at [...] - Your next phone appointment with the [facility] transplant team is scheduled for September 04. You will also have an in-person appointment at the [facility] on September 21. - Complete the ordered blood work at our facility before your transplant appointments. - Continue attending dialysis sessions as scheduled and notify your manager green, Dr. Mckeon, or his nurse if you experience any issues. - If you develop any new symptoms, such as fever, worsening fatigue, or signs of infection, please contact our office immediately. Please let us know if you have any additional questions or concerns. documented in this encounterKindred Hospital [facility]ima06-19-2025 Radiology [address] [facility] Imaging Services [address] [place], [place] [id number] Esophagus Dual Contrast MR#: [id number] Acct: [id number] Name: LAURIE GONZALES Rep #: [id number] : 1980 M 44 From: Pet er Peer DO PCP: Dr. Kristal Sullivan MD Status: REG C EULALIO Study:Esophagus Dual Contrast Date of Exam: 09/16/24 Exam# [id number] Ordering Dr: Kalina Payne ADDENDUM by Dr. [...] gastroesophageal junction. Endoscopic correlation recommended. Reading Location: [place] [address] 09/16/24 1105 Date cc: DIAMOND EXPERTAriela Payne; Dr. Kristal Sullivan MD ~* Signed [...] Contrast IMPRESSION: Tertiary esophageal contractions [facility] CC: RAVINDER Payne; Dr. Kristal Sullivan MD ~ Shuttle Van Driver: Signed [facility]06-16-2025 NoteHNO ID: [id number] Author: MARTHA CHEATHAM RRT Service: ? Author [...] and was discharged to receive antibiotics at [facility] dialysis sessions until September 23. Dr Tamayo made aware of findings, MD reviewed Pt with Dr Ferguson. MDS would like to consult ID in am if pt were to receive an Offer Martha Cheatham RRT Transplant CoordinatorGlen[facility] Hospital06-16-2025 History of Present illness Narrative* Martha Cheatham RRT - 09/13/2024 10:10 PM EDT Laurie Gonzales called due to recent ED [...] and was discharged to receive antibiotics at [facility] dialysis sessions until September 23. Dr Tamayo made aware of findings, MD reviewed Pt with Dr Ferguson. MDS would like to consult ID in am if pt were to receive an Offer Martha Cheatham RRT Plastics Bench Mechanic documented in this encounterKindred Hospital [facility]ima06-10-2025 Progress [facility] [address] [place] [address] OFFICE VISIT Date of Service: 09/07/24 MR#: [id number] Acct: [id number] Name: LAURIE GONZALES Rep #: [id number] : 1980 Provider: RAVINDER Payne Age/Sex: 44/M [place] [facility] Status: Signed Intake Vital Signs 08/17/24 14:47 [...] 1 Month f/u Chief Complaint: f/u diabetes Charge Account Identification Clerk Required: No Accompanied by: self Is patient in pain?: No Allergies No Known Allergies Allergy (Verified 09/07/24 13:08) Medications ?Medication ?Instructions ?Recorded ?Confirmed ?Type blood sugar diagnostic (FreeStyle #100 ea 10/08/2101/22 Rx Lite Strips) lancing device with lancets kit #100 ea 11/26/2109/07 Rx (OneTouch Delica Plus Lancing Device kit) [...] Rx 5/32 (BD Ultra-Fine Carol Pen Needle) blood-glucose,environmental department manager,cont #1 ea 04/01/24 09/07/24 Rx (Dexcom G6 Salesperson Books) insulin pump cart,auto,BT,G6/7 #30 ea 04/01/24 5 [...] sudden onset dysphagia and odynophagia in the uppermid esophagus with liquids and solids. He reports [...] stools, Vomiting blood/hematemesis, Blood in stool, loose stool s,Black,tarry stools, nausea/dyspepsia, pain with swallowing, vomiting or [...] well nourished Orientation: alert and oriented x3 [facility] Head: normocephalic Ears: hearing grossly normal bilaterally [...] weeks and we will repeat EGD. Note: [employer] speech recognition associate professor of philosophy software was used to create portions of this document. Sound-alike and misspelled words, as well as other associate professor of philosophy errors may be contained in the documentation. Patient Instructions: Increase pantoprazole to 40mg BID x8 weeks Repeat EGD in 8 weeks With mucosal healing will plan to decrease PPI to once daily Coding Level of Care Code Off vis,est,level 4 Diagnoses Erosive esophagitis K22.10 Clinical Quality Measures Smoking Screening Smoking Status: Never smoker 09/07/24 1338 jacqueline DIAMOND EXPERT-C> Date _ Kalina Payne DIAMOND EXPERT-C Jennifer Signature: Date (if applicable) CC: ~ [facility]06-03-[address] [facility] Medical Records Department [address] [place] [address] Anesthesia Postop Eval I 08/31/24 1131 MR#: [id number] Acct: [id number] Name: LAURIE GONZALES Rep #:[id number] : 1980 44 From: Jakob Patricia PCP: Dr. Kristal Sullivan MD Status:REG S DC Y Race: C Location: [place] [address] Anesthesia: Postop Eval I Current Vital Signs [...] Postop Eval 1 completed: Yes 08/31/24 1132 > Date _ Jakob Rodriguez Signature: Date CC: ~ Signed [facility]06-03-[address] [facility] Medical Records Department [address] [place] [address] EGD Report MR#: [id number] Acct: [id number] Name: LAURIE GONZALES Rep #:[id number] : 1980 44 From: Bao Angulo DO PCP: Dr. Kristal Sullivan MD Status:REG S DC Patient Name: Laurie Gonzales Procedure Date: 08/31/2024 10:50 AM Date of : 1980 Age: 44 Procedure: Upper GI endoscopy Indications: Epigastric abdominal pain, Dysphagia Providers: Bao Angulo DO Referring MD: Kristal Sullivan Medicines: Monitored Anesthesia Care Patient Profile: This is a 44 year old male. Refer to note in patient chart for documentation of history and physical. Patient has symptoms of chronic epigastric abdominal pain, chronic dyspepsia and acute odynophagia. Complications: No immediate complications. Procedure: Pre-Anesthesia Assessment: - Prior to the procedure, a History and Physical was performed, and patient medications and allergies were reviewed. The patient is competent. The risks and benefits of the procedure and the sedation options and risks were discussed with the patient. All questions were answered and informed consent was obtained. Patient identification and proposed procedure were verified by the physician in the pre-procedure area. Mental Status Examination: alert and oriented. Airway Examination: normal oropharyngeal airway and neck mobility. Respiratory Examination: clear to auscultation. CV Examination: normal. Prophylactic Antibiotics: The patient does not require prophylactic antibiotics. Prior Anticoagulants: The patient has taken no anticoagulant or antiplatelet agents. ASA Grade Assessment: II - A patient with mild systemic disease. After reviewing the risks and benefits, the patient was deemed in satisfactory condition to undergo the procedure. The anesthesia plan was to use monitored anesthesia care (MAC). Immediately prior to administration of medications, the patient was re-assessed for adequacy to receive sedatives. The heart rate, respiratory rate, oxygen saturations, blood pressure, adequacy of pulmonary ventilation, and response to care were monitored throughout the procedure. The physical status of the patient was re-assessed after the procedure. After obtaining informed consent, the endoscope was passed under direct vision. Throughout the procedure, the patient's blood pressure, pulse, and oxygen saturations were monitored continuously. The gastroscope was introduced through the mouth, and advanced to the third part of the duodenum. Small bowel enteroscopy was deemed necessary. The upper GI endoscopy was accomplished without difficulty. The patient tolerated the procedure well. Scope In: 11:16:10 AM Scope Out: 11:21:06 AM Total Procedure Duration Time 0 hours 4 minutes 56 seconds Findings: LA Grade C (one or more mucosal breaks continuous between tops of 2 or more mucosal folds, less than 75% circumference) esophagitis with no bleeding was found 34 to 40 cm from the incisors. Biopsies were taken with a cold forceps for histology. Verification of patient identification for the specimen was done. A guidewire was placed under fluoroscopic guidance and the scope was withdrawn. Dilation was performed with a Savary dilator with no resistance at 60 Fr. No gross lesions were noted in the stomach. Moderately erythematous mucosa without active bleeding and with no stigmata of bleeding was found in the entire duodenum. Impression: - LA Grade C reflux esophagitis with no bleeding. Biopsied. Dilated. - No gross lesions in the stomach. - Erythematous duodenopathy. Recommendation: - Discharge patient to home. - Resume previous diet. - Continue present medications. - Await pathology results. Procedure Code(s): --- Professional --- 16489, Esophagogastroduodenoscopy, flexible, transoral; with insertion of guide wire followed by passage of dilator(s) through esophagus over guide wire 43802, 59,51, Small intestinal endoscopy, enteroscopy beyond second portion of duodenum, not including ileum; with biopsy, single or multiple 69401, 26, Intraluminal dilation of strictures and/or obstructions (eg, esophagus), radiological supervision and interpretation CPT copyright 2021 [employer]. All rights reserved. The codes documented in this report are preliminary and upon associate professor of chemistry review may be revised to meet current compliance requirements. Bao Angulo DO 08/31/2024 11:29:52 AM This report has been signed electronically. Number of Addenda: 0 Note Initiated On: 08/31/2024 10:50 AM 08/31/241128 Date _ Bao Angulo DO Carolrachreva Signature: Date (if indicated) CC: Dr. Kristal Sullivan MD; Bao Angulo DO ~ Date Dictated: 08/31/24 1050 Date Transcribed: Shuttle Van Driver: RF Signed [facility]06-03-[address] [facility] Medical Records Department [address] [place] [address] Operative Report - CC Letter MR#: [id number] Acct: [id number] Name: LAURIE GONZALES Nelson Rep #:[id number] : 1980 44 From: Bao Angulo DO PCP: Dr. Kristal Sullivan MD Status:REG S DC 08/31/2024 Kristal Sullivan [address] [place] [address] Re : Upper GI endoscopy procedure for Laurie Gonzalse Dear Dr. Sullivan This procedure was performed on Saturday, August 31, 2024. My impressions and recommendations are as follows: Impressions : - LA Grade C reflux esophagitis with no bleeding. Biopsied. Dilated. - No gross lesions in the stomach. - Erythematous duodenopathy. Recommendations : - Discharge patient to home. - Resume previous diet. - Continue present medications. - Await pathology results. My findings are described in the full procedure note, which is enclosed. If I can be of further assistance, please feel free to contact me at . Sincerely, Bao Angulo DO 08/31/2024 11:29:52 AM This report has been signed electronically. 08/31/241128 Date _ Bao Angulo DO Cosigner Signature: Date (if indicated) CC: Dr. Kristal Sullivan MD; Bao Angulo DO ~ Date Dictated: 08/31/24 1050 Date Transcribed: Shuttle Van Driver: RF Signed [facility]06-03-2025 History and physical note [facility] Medical Records Department [address] [place] [address] History & Physical Exam 08/31/24 1105 MR#: [id number] Acct: [id number] Name: LAURIE GONZALES Rep #:[id number] : 1980 44 From: Bao Angulo DO PCP: Dr. Kristal Sullivan MD Status:REG S ID Location: [place] [address] HPI - General General Date of Admission: [...] kit #100 ea 11/26/21 Unkno wn Rx (Datavail DelBirdbox Plus Lancing Device kit) pen needle, diabetic [...] Rx 5/32 (BD Ultra-Fine Carol Pen Needle) blood-glucose,environmental department manager,cont #1 ea 04/01/24 Unknown Rx (Dexcom G6 Salesperson Books) insulin pump cart,auto,BT,G6/7 #30 ea 04/01/24 Unknown [...] ground emesis, constipation, cramping, diarrhea, dyspepsia, dysphagia, earlysatiety, excessive flatus, fecalincontinence, heartburn, hematemesis, hematochezia, hemorrhoids, [...] sudden onset dysphagia and odynophagia in the uppermid esophagus with liquids and solids. He reports a 10 to 20 pound weight loss in the past week, and is running even ondialysis. I have started him on a daily PPI and sucralfate. I have also ordered an esophagram and EGD. He will follow-up in the office post procedures. He takes Plavix and will require approval to hold prior to EGD. Note: [employer] speech recognition associate professor of philosophy software was used to create portions of this document. Sound-alike and misspelled words, as well as other associate professor of philosophy errors may be contained in the documentation. Patient Instructions: Esophagram EGD 08/31/24 1106 Cosigner Signature (if applicable): CC: Dr. Kristal Sullivan MD; Bao Friend, DO~ Signed [facility]06-03-2025 [facility] [facility] Medical Records Department [address] [place] [address] Pre-Anesthesia Evaluation 08/31/24 1056 MR#: [id number] Acct: [id number] Name: LAURIE GONZALES Rep #:[id number] : 1980 44 From: Jakob Patricia PCP: Dr. Kristal Sullivan MD Status:REG S DC Y Race: C Location: [place] [address] ASA Classification* ASA Classification ASA Classification: 3 [...] uIU/mL (0.358-3.740) 01/23/24 01:40 1008/21 COAG PT 14.7 SECONDS (11.7-14.9) 08/23/24 02:09 Pre-Assessment Diagnosis/Proposed Procedure Planned Operative Procedure(s): EGD Anesthesia History Anesthesia History - web site administrator: Anesthesia History - web site administrator Hx Hospitalization Yes: 07/2024 BLOOD INFECTION/ 08/30/24 10:[address] [facility] Any Problems With Anesthesia No 08/30/24 10:31 [...] take am of surgery PONV PONV - web site administrator: PONV - web site administrator Female No 08/30/24 10:31 HX of Motion [...] 08/31/24 10:38 Respiratory Assessment Respiratory Assessment - web site administrator: Respiratory Tract Infection Hx - web site administrator Hx Respiratory Tract Infection No 08/30/24 10:31 STOP Sleep Apnea STOP Sleep Apnea - web site administrator: STOP Sleep Apnea - web site administrator Hx Hypertension Yes: CONTROLLED WITH MED 08/30/24 [...] Tobacco Use History Tobacco Use History - web site administrator: Tobacco Use History - web site administrator Tobacco Use Non-smoker 06/30/24 15:56 Smoking Status Never smoker 08/30/24 10:31 Hx Tobacco Use No 08/30/24 10:31 Years Smoking Packs Smoked per Day Smoking Cessation Date was within the last 15 years Hx Smoking Cessation Date Hx Smoking Cessation Counseling Hematologic Medial History Hematologic Hx - web site administrator: Hematologic Medical Hx - health consultant Hx of Blood Transfusion No 08/30/24 10:31 [...] confused, unrespo /Reproduction History /Reproductive History - web site administrator: /Reproductive Hx- web site administrator Hx Now No 08/30/24 10:31 Gestational Age [...] kit #100 ea 11/26/21 Unkno wn Rx (Datavail Delica Plus Lancing Device kit) pen needle, [...] n Rx (BD Ultra-Fine Carol Pen Needle) blood-glucose,environmental department manager,cont #1 ea 04/01/24 Unknown Rx (Dexcom G6 Salesperson Books) insulin pump cart,auto,BT,G6/7 #30 ea 04/01/24 Unknown [...] additional complaints, except as documented. 08/31/24 1101 > Date _ Jakob Patricia 08/31/24 1104 Carolignreva Signature: Date Shaun Thompson MD CC: ~ Signed [facility]05-31-2025 Note Attestation with edits by Maria Luz [...] a 44 y.o. male that presented to [facility] on 08/23/2024 and was admitted for [...] These medications were sent to [id number] - [facility] [address] [id number] amLODIPine 10 MG tablet aspirin 81 MG [...] imaging Electronically signed by (more content not included)...[facility] 08-28-2024 NoteNephrology Progress Note Following for ESRD Pt seen [...] Data: Labs: Recent Labs 08/26/24 0552 08/27/24 0216 08/28/24 [...] HD - continue HD MWF at [facility] tammy - Dr Emily CARRION manager green - right TD CDI removed for line holiday 08/24 - [...] any questions or concerns Kim Blackwell APRN ARM REST BUILDER A-G DIAMOND EXPERT [facility] [place] [phone] Pt seen and examined independently by me. I reviewed with BLUEPRINT MAKER-ARM REST BUILDER the medical history and the findings on physical examination. I discussed the patient?s diagnosis and concur with the treatment plan as documented in his note. Please call [phone] or message me through OptuLink with any questions or concerns.[facility]05-31-2025 History of Present illness Narrative * Oneal Diego MD - 08/28/2024 12:44 PM EDT Nephrology Progress Note Following for ESRD Pt seen in room no complaints or concerns Current Inpatient Medications: Reviewed on MAY. Vitals: BP 155/89 Pulse 86 Temp 36.3 C (97.3 F) (Temporal) Resp 20 Ht 1.803 m (5' 11) Wt 89.7 kg(197 lb 12.8 oz) SpO2 97% BMI 27.59 [...] Data: Labs: Recent Labs 08/26/24 0552 08/27/24 0216 08/28/24 [...] HD - continue HD MWF at [facility] tammy - Dr Diaz OP manager green - right TDC CDI removed for line [...] - monitor volume status electrolytes daily Oneal Brandie, MD Thank you for allowing me to care for pt. Feel free to reach out with any questions or concerns Kim Blackwell APRN ARM REST BUILDER A-G DIAMOND EXPERT [facility] [place] [phone] Pt seen and examined independently by me. I reviewed with REEMA-DEJAH the medical history and the findings on physical examination. I discussed the patient s diagnosis and concur with the treatment mukesh documented in his note. Please call [phone] or message me through OptuLink with any questions or concerns. * Akbar Brown - 08/28/2024 9:33 AM EDT Department of Internal Medicine Division of Endocrinology, Diabetes, & Metabolism Endocrinology Note Patient Name: Farrah Gonzales : 1980 AGE: 44 y.o. Room/Bed: [facility]/[address] Admission Date: 08/23/2024 Visit Date: 08/28/2024 Reason for Endocrine Consult: Type 1 diabetes mellitus on insulin pump. Provider/Team Requesting Consult: Brayan Barros PCP: Kristal Sullivan MD Outpt Foreign Policy Officer: Yes . Jace Ko MD at outside [...] insulin pump. Outpt Follow Up-- With outside stave grader. SUBJECTIVE/HPI: CHIEF COMPLAINT: No chief complaint on file. Interval history 08/28 Doing well, no concerns overnight. Tolerating PO diet and insulin regiment without issues. 08/27 Doing well, no concerns overnight. Showering initially. Still tolerating PO diet and insulin regiment without issue 08/26 No acute events. Doing well. No concerns today. Walking curry without issue when seen. Tolerating POdiet and subcutaneous insulin without issue 08/25 Patient [...] for the last 3 years, with a [employer] G6 CGM. He uses auto mode on [...] results, and Other Clinical Notes at the timeof today's encounter. Labs: No components found for: [...] found for: CHOLHDLRATIO No results found for: [id number] Lab Results Component Value Date TSH 2.48 08/23/2024 Radiology reportsas per the Radiologist Radiology: CT chest abdomen pelvis with contrast Result Date: 08/23/2024 Patient Name: FARRAH GONZALES : 1980 [facility]#: [id number] Exam Date/Time: 08/23/2024 14:56 Procedure: CT CHEST [...] infiltrates masses or pleural effusions Right jugular tunneleddialysis catheter, left coronary artery stent with calcified [...] 08/23/2024 Patient Name: FARRAH GONZALES : 1980 [facility]#: [id number] Exam Date/Time: 08/23/2024 13:22 Procedure: XR CHEST 1 VIEW Ordering Provider: STEEN SHELDON Reason For Exam: concern for pna PORTABLE CHEST X-RAY CLINICAL INDICATION: concern for pna A portable frontal view of the chest was obtained. COMPARISON: None FINDINGS: The cardiac silhouette is within normal limits. Right jugular dialysis catheter terminates near the junction of the superior vena cavaand right atrium. No focal consolidation is seen [...] Topics Alcohol use: Never Drug use: Never * Brayan Barros, DO - 08/28/2024 7:16 AM EDT Med Team Progress Note Farrah Gonzales : [...] says that it does not cause significant impairmentin his visual solis but is noticeable. No pain with eye movement, and the eye is nonpainful. Review of Systems Constitutional: Negative for chills and fever. Cardiovascular: Negative for chest pain. Gastrointestinal: Negative for diarrhea, nausea and vomiting. Scheduled Meds:Scheduled Meds[1] Continuous Infusions:Continuous Meds[2] Objective: BP 149/84 Pulse 86 Temp 36.3 C (97.3 F) (Temporal) Resp 20 Ht 5' 11 (1.803 m) Wt 197 lb12.8 oz (89.7 kg) SpO2 96% BMI 27.59 [...] 12.6 ABGs: No results for input(s): PHART, TYN6JNV, PO2ART, HYS1QBJ, SO2ART, V7AOTWZV in thelast 72 hours. Lactic Acid: No results for [...] liver enzymes - Per HPB, MRI from [facility] shows liver hemangioma so no surgical intervention [...] center EOT 09/22. 7AM-5PM: contact resident on [facility] Med D (find by hovering over attending's name on left side of patient's chart) 5PM-7AM: contact AI3 res * Tracy Childs PA-C - 08/27/2024 3:57 PM EDT Images from the original note were not included. [facility] - Infectious Diseases Advanced Practice Provider Progress Note Subjective: Following patient for MSSA bacteremia s/p TDC removal 08/24. Notes reviewed. Patient reports feelingwell overall with no new issues or complaints. [...] (97.6 F) Temporal 92 16 97 % 08/26/24 2027 157/94 36.4 C (97.5 F) Temporal 99 [...] Plan: Following patient for MSSA bacteremia suspected 2/ TDC s/p line removal 08/24. 08/25 Blood [...] be of moderate complexity. Tracy GEORGE PA-C [facility] [place] * Oneal Diego MD - 08/27/2024 8:55 AM EDT Nephrology Progress Note Following for ESRD Pt [...] lower extremity edema Data: Labs: Recent Labs 08/25/2451808/26/24 0552 08/27/24 0216 WBC 6.8 4.2 6.3 HGB 9.6* 9.5* 10.5* HCT 28.2* 28.4* 32.3* MCV 89.8 90.7 92.0 PLT 171 171 215 Recent Labs 08/25/24 0508/26/24 0552 08/27/24 0216 NA 135* 135* 134* [...] HD - continue HD MWF at [facility] tammy - Dr Diaz OP manager green - right TDC CDI removed for line [...] with any questions or concerns Kim Blackwell APRN, CNP A-G DIAMOND EXPERT [facility] [place] [phone] Pt seen and examined independently by me. I reviewed with REEMA-DEJAH the medical history and the findings on physical examination. I discussed the patient s diagnosis and concur with the treatment mukesh documented in his note. Please call [phone] or message me through OptuLink with any questions or concerns. * Jay Bazan MD - 08/27/2024 8:12 AM EDT Department of Internal Medicine Division of Endocrinology, Diabetes, & Metabolism Endocrinology Note Patient Name: Farrah Gonzales : 1980 AGE: 44 y.o. Room/Bed: [facility]/[address] Admission Date: 08/23/2024 Visit Date: 08/27/2024 Reason for Endocrine Consult: Type 1 diabetes mellitus on insulin pump. Provider/Team Requesting Consult: Brayan Barros PCP: Kristal Sullivan MD Outpt Foreign Policy Officer: Yes . Jace Ko MD at outside [...] insulin pump. Outpt Follow Up-- With outside stave grader. SUBJECTIVE/HPI: CHIEF COMPLAINT: No chief complaint on file. Interval history 08/27 Doing well, no concerns overnight. Showering initially. Still tolerating PO diet and insulin regiment without issue 08/26 No acute events. Doing well. No concerns today. Walking curry without issue when seen. Tolerating POdiet and subcutaneous insulin without issue 08/25 Patient [...] for the last 3 years, with a [employer] G6 CGM. He uses auto mode on [...] results, and Other Clinical Notes at the timeof today's encounter. Labs: No components found for: [...] found for: CHOLHDLRATIO No results found for: [id number] Lab Results Component Value Date TSH 2.48 [...] infiltrates masses or pleural effusions Right jugular tunneleddialysis catheter, left coronary artery stent with calcified [...] near the junction of the superior vena cavaand right atrium. No focal consolidation is seen [...] counseling and coordinating care. I have reviewed diagnosticworkup and images. I have reviewed outpatient and inpatient notes. I have discussed the case with the primary team and the nurse taking care of the patient. Additional Notes: Insulin requirements decreasing. Change Lantus 45 units/d Do not hold meal time insulins. Will follow. * Brayan Barros DO - 08/27/2024 7:14 AM EDT Med Team Progress Note Farrah Gonzales : [...] 16 Ht 5' 11 (1.803 m) Wt 197lb 12.8 oz (89.7 kg) SpO2 98% BMI [...] 0519 08/25/24 0725 08/25/24 1101 08/25/24 1655 08/25/24205708/25/24225608/26/24 0552 08/26/24 0730 08/26/24 1039 08/26/24 1702 [...] 12.8 ABGs: No results for input(s): PHART, VWK9WEO, PO2ART, UTN1FAD, SO2ART, K6DVFZZI in thelast 72 hours. Lactic Acid: No results for [...] liver enzymes - Per HPB, MRI from [facility] shows liver hemangioma so no surgical intervention [...] 08/27/24). I agree with the findings and planof care as documented in the resident's note. I have edited the resident note below, and my thoughts are demarcated in Green. 7AM-5PM: contact resident on [facility] Med D (find by hovering over attending's name on left side of patient's chart) 5PM-7AM: contact AI3 res * Tracy Childs PA-C - 08/26/2024 12:40 PM EDT Images from the original note were not included. [facility] - Infectious Diseases Advanced Practice Provider Progress Note Subjective: Following patient for MSSA bacteremia s/p TDC removal 08/24. Notes reviewed. Patient reports feelingbetter overall. Reports nausea and vomiting has resolved. [...] 164/87 -- -- 109 -- -- 08/25/24 193 146/86 -- -- 109 -- -- 08/25/24 191 155/90 -- -- 112 -- -- 08/25/24 [...] Patient with MSSA bacteremia- suspect 2/2 TDC s/p TDC removal 08/24. 08/25 Blood [...] considered to be of moderate complexity. Tracy GEORGE, PAAriela [facility] [place]ious Disease * Oneal Diego MD - 08/26/2024 9:51 AM EDT Nephrology Progress Note Following for ESRD mgt [...] HD - continue HD MWF at [facility] tammy - Dr Diaz OP manager green - right TDC CDI removed for line [...] any questions or concerns Kim Blackwell APRN ARM REST BUILDER A-G DIAMOND EXPERT [facility] [place] [phone] Pt seen and examined independently by me. I reviewed with , REEMA-ARM REST BUILDER the medical history and the findings on physical examination. I discussed the patient s diagnosis and concur with the treatment plan as documented in his note. Please call [phone] or message me through OptuLink with any questions or concerns. * Jay Bazan MD - 08/26/2024 8:18 AM EDT Department of Internal Medicine Division of Endocrinology, Diabetes, & Metabolism Endocrinology Note Patient Name: Farrah Gonzales : 1980 AGE: 44 y.o. Room/Bed: W4-435/[facility] A Admission Date: 08/23/2024 Visit Date: 08/26/2024 Reason for Endocrine Consult: Type 1 diabetes mellitus on insulin pump. Provider/Team Requesting Consult: Brayan Barros PCP: Kristal Sullivan MD Outpt Foreign Policy Officer: Yes . Jace Ko MD at outside [...] insulin pump. Outpt Follow Up-- With outside stave grader. SUBJECTIVE/HPI: CHIEF COMPLAINT: No chief complaint on file. Interval history 08/26 No acute events. Doing well. No concerns today. Walking curry without issue when seen. Tolerating POdiet and subcutaneous insulin without issue 08/25 Patient [...] for the last 3 years, with a [employer] G6 CGM. He uses auto mode on [...] results, and Other Clinical Notes at the timeof today's encounter. Labs: No components found for: [...] found for: CHOLHDLRATIO No results found for: [id number] Lab Results Component Value Date TSH 2.48 [...] infiltrates masses or pleural effusions Right jugular tunneleddialysis catheter, left coronary artery stent with calcified [...] 08/23/2024 Patient Name: FARRAH GONZALES : 1980 [facility]#: [id number] Exam Date/Time: 08/23/2024 13:22 Procedure: XR CHEST 1 VIEW Ordering Provider: STEEN SHELDON Reason For Exam: concern for pna PORTABLE CHEST X-RAY CLINICAL INDICATION: concern for pna A portable frontal view of the chest was obtained. COMPARISON: None FINDINGS: The cardiac silhouette is within normal limits. Right jugular dialysis catheter terminates near the junction of the superior vena cavaand right atrium. No focal consolidation is seen [...] counseling and coordinating care. I have reviewed diagnosticworkup and images. I have reviewed outpatient and inpatient notes. I have discussed the case with the primary team and the nurse taking care of the patient. Additional Notes: Still with hyperglycemia. Will adjust ICR and ISF. Will follow. * Any Hernández MD - 08/26/2024 7:53 AM EDT .imMed Team Progress Note Farrah Gonzales : [...] he notes that they don't feel helpful. Hereports that he has had 2 bowel movements [...] Lying) Pulse 115 Temp 36.6 C (97.8 F)(Temporal) Resp 15 Ht 5' 11 (1.803 m) [...] Labs BMP: Recent Labs 08/23/24 1300 08/24/24 0412 08/25/24 0519 NA 134* 135* 135* K 4.4 4.0 3.5 CL 99 101 98 CO2 20* 19* 24 BUN 59* 27* 43* CREATININE 9.57* 5.47* 7.05* CALCIUM 8.8 8.8 9.5 MG -- 1.9 2.1 PHOS -- 2.9 3.9 LFTs: Recent Labs 08/23/24 1300 08/24/24 0308 08/24/24 0412 08/25/24 0519 AST 22 -- 81* 110* ALT [...] PROCAL 5.94* CBC: Recent Labs 08/23/24 1300 08/24/24 0412 08/25/24 0519 WBC 20.3* 10.7 6.8 HGB 10.4* 9.6* 9.6* HCT 29.5* 28.3* 28.2* PLT 177 153 171 MCV 88.3 89.8 89.8 RDW 13.0 13.0 13.0 ABGs: No results for input(s): PHART, YMH4IPF, PO2ART, XGN3NNQ, SO2ART, G5EKVRKX in thelast 72 hours. Lactic Acid: Recent Labs 08/23/24 [...] consulted, appreciate recs. -Per HPB, MRI from [facility] shows liver hemangioma so no surgical intervention [...] 08/26/24). I agree with the findings and planof care as documented in the resident's note. I have edited the resident note below, and my thoughts are demarcated in Green. High risk and complexity-bacteremia requiring IV abx, HD dialysis catheter complication, awaiting blood culture finalization 7AM-5PM: contact resident on [facility] Med D (find by hovering over attending's name on left side of patient's chart) 5PM-7AM: contact AI3 jon * Jay Bazan MD - 08/25/2024 1:02 PM EDT Department of Internal Medicine Division of Endocrinology, Diabetes, & Metabolism Endocrinology Note Patient Name: Farrah Gonzales : 1980 AGE: 44 y.o. Room/Bed: [facility] A Admission Date: 08/23/2024 Visit Date: 08/25/2024 Reason for Endocrine Consult: Type 1 diabetes mellitus on insulin pump. Provider/Team Requesting Consult: Brayan Barros PCP: Kristal Sullivan MD Outpt Foreign Policy Officer: Yes . Jace Ko MD at outside [...] insulin pump. Outpt Follow Up-- With outside stave grader. SUBJECTIVE/HPI: CHIEF COMPLAINT: No chief complaint on [...] for the last 3 years, with a [employer] G6 CGM. He uses auto mode on [...] results, and Other Clinical Notes at the timeof today's encounter. Labs: No components found for: [...] found for: CHOLHDLRATIO No results found for: [id number] Lab Results Component Value Date TSH 2.48 08/23/2024 Radiology reportsas per the Radiologist Radiology: CT chest abdomen pelvis with contrast Result Date: 08/23/2024 Patient Name: FARRAH GONZALES : 1980 [facility]#: [id number] Exam Date/Time: 08/23/2024 14:56 Procedure: CT CHEST [...] infiltrates masses or pleural effusions Right jugular tunneleddialysis catheter, left coronary artery stent with calcified [...] 08/23/2024 [facility] 1980 [id number] Exam Date/Time: 08/23/2024 13:22 Procedure: XR CHEST 1 VIEW Ordering Provider: STEEN SHELDON Reason For Exam: concern for pna PORTABLE CHEST X-RAY CLINICAL INDICATION: concern for pna A portable frontal view of the chest was obtained. COMPARISON: None FINDINGS: The cardiac silhouette is within normal limits. Right jugular dialysis catheter terminates near the junction of the superior vena cavaand right atrium. No focal consolidation is seen [...] ODT OR ondansetron, polyethylene glycol (PEG) 3350, prochlorperazineOR prochlorperazine OR prochlorperazine [4] Past Medical History: [...] counseling and coordinating care. I have reviewed diagnosticworkup and images. I have reviewed outpatient and inpatient notes. I have discussed the case with the primary team and the nurse taking care of the patient. Additional Notes: Still with significant hyperglycemia despite subcutaneous regimen + CSII. Increase insulin doses as below. Will follow. * Tracy Childs PA-C - 08/25/2024 12:47 PM EDT Images from the original note were not included. [facility] - Infectious Diseases Advanced Practice Provider [...] any new urinary issues. No other new exacerbatingor alleviating factors. Objective: Vitals: Patient Vitals for [...] Plan: Patient with MSSA bacteremia- suspect 2/ TDC. Line removed 08/24 for line holiday. [...] be of moderate complexity. Tracy GEORGE PA-C [facility] [place]ious Disease * Oneal Diego MD - 08/25/2024 11:30 AM EDT Nephrology Progress Note Following for ESRD mgt Pt seen in room had CVC removed 08/24 for line holiday Has current LAVF placed 07/2023 had revision + bruit /thrill Pt asking if its ok to use AVF was suppose to have US and appt with vascular today in [place] Current Inpatient Medications: Reviewed on MAY. Vitals: [...] HD - continue HD MWF at [facility] tammy - Dr Diaz OP manager green - right TDC CDI removed for line [...] examined independently by me. I reviewed with REEMA-DEJAH the medical history and the findings on physical examination. I discussed the patient s diagnosis and concur with the treatment mukesh documented in his note. Please call [phone] or message me through OptuLink with any questions or concerns. 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 In ED ptwas found to be febrile (103), hypotensive (93/78) [...] he felt feverish which prompted them to goto the ED, c/o nausea, vomiting, body aches, and chest pain, characterizes his chest pain as soreness in the epigastric area radiating to his back/shoulder blades and towards his legs, also reportingslight redness and itching near his port site on his chest, denies any respiratory symptoms including SOB, cough or congestion but does note a runny nose for the last week, pt has only tried Phenergan for symptoms and has felt relief from nausea; 08/23 blood Cx collected 2/2 GPC (MSSA detected) respPCR panel and Strep/Legionella Ag negative, source suspected to be skin given cellulitis surrounding tunneled line; several services consulted including Endo (following for insulin dosing with pump) and Nephrology (last HD 08/23), per Endo pt was diagnosed with T1DM when he was 18 YO, has been on Omn ipod for 3 years with Dexcom G6 CGM; [...] 64 gm CHO), pt confirmed having issue whendrinking large quantities of milk but didn't report [...] collected but hasn't been yet, states diarrhea isnot common for him, he denies any other GI complaints; states last weight at HD was 85.5 kg, RD observed 197.8# bedscale weight w/ minimal items; when asked if he has nutrition/diet questions or concerns (pt aware of CHO amounts on menu) pt declined having any. Estimated Daily Nutrient Needs: Energy Requirements Based On: Kcal/kg Weight Used for Energy Requirements: [place] Weight for Energy Calculation (kg): 78 kg Total Energy Requirements (kcals/day): 7073-6404 kcal/day (28-30 kcal/kg) Weight Used for Protein Requirements: [place] Weight in Kg Used for Protein Requirements: [...] last weight at HD was '85.5 kg') [place] Body Weight (lbs) (Calculated): 172 lbs [place] Body Weight (Kg) (Calculated): 78 kg BMI [...] Melissa Orellana RD Contact: Secure chat or *[phone] * Any Hernández MD - 08/25/2024 8:09 AM EDT Med Team Progress Note Farrah Gonzales : [...] yesterday but was wondering if AV fistula canbe used as it was placed last year. Clinically looks much improved today PRN meds used in last 24hrs: tylenol 650 mg X1 Phenergen 6.25 mg X1 Review of Systems Scheduled Meds:Scheduled Meds[1] Continuous Infusions:Continuous Meds[2] Objective: BP (!) 184/103 (BP Location: Right arm, Patient Position: Lying) Pulse 115 Temp 36.6 C (97.8 F)(Temporal) Resp 15 Ht 5' 11 (1.803 m) Wt 195 lb (88.5 kg) SpO2 96% BMI 27.20 kg/m Physical Exam Gen: NAD HEENT: MMM CV: rrr Resp: CTAB Skin: interval removal of tunneled HD line with improving erythema at chest wall site Abd: soft +Ve BS MSK: AVF with audible thrill Neuro: AOx4 Select Recent Labs BMP: Recent Labs 08/23/24 1300 08/24/24 0412 08/25/24 0519 NA 134* 135* 135* K 4.4 4.0 3.5 CL 99 101 98 CO2 20* 19* 24 BUN 59* 27* 43* CREATININE 9.57* 5.47* 7.05* CALCIUM 8.8 8.8 9.5 MG -- 1.9 2.1 PHOS -- 2.9 3.9 LFTs: Recent Labs 08/23/24 1300 08/24/24 0308 08/24/24 0412 08/25/24 0519 AST 22 -- 81* 110* ALT [...] PROCAL 5.94* CBC: Recent Labs 08/23/24 1300 08/24/24 0412 08/25/24 0519 WBC 20.3* 10.7 6.8 HGB 10.4* 9.6* 9.6* HCT 29.5* 28.3* 28.2* PLT 177 153 171 MCV 88.3 89.8 89.8 RDW 13.0 13.0 13.0 ABGs: No results for input(s): PHART, CYC1JHL, PO2ART, MGG7DJG, SO2ART, Y2OMDTNR in thelast 72 hours. Lactic Acid: Recent Labs 08/23/24 [...] in clusters -Drug Screen Neg -ESR, CRP, Pro-Reggie elevated -UA showed protein and glucose in [...] on line holiday 7AM-5PM: contact resident on [facility] Med D (find by hovering over attending's name on left side of patient's chart) 5PM-7AM: contact AI3 res * Oneal Diego MD - 08/24/2024 10:08 AM EDT Nephrology Progress Note Following for ESRD mgt [...] sepsis. Nephrology is consulted for management of end- stage renal disease ESRD on MWF HD - continue HD MWF at [facility] tammy - Dr Diaz OP manager green - right TDC CDI Volume. - Bp [...] any questions or concerns Kim Blackwell APRN ARM REST BUILDER A-G DIAMOND EXPERT [facility] [place] [phone] Pt seen and examined independently by me. I reviewed with REEMA-DEJAH the medical history and the findings on physical examination. I discussed the patient s diagnosis and concur with the treatment mukesh documented in his note. Please call [phone] or message me through OptuLink with any questions or concerns. * Jay Bazan MD - 08/24/2024 9:14 AM EDT Department of Internal Medicine Division of Endocrinology, Diabetes, & Metabolism Endocrinology Note Patient Name: Farrah Gonzales : 1980 AGE: 44 y.o. Room/Bed: [facility]/[address] Admission Date: 08/23/2024 Visit Date: 08/24/2024 Reason for Endocrine Consult: Type 1 diabetes mellitus on insulin pump. Provider/Team Requesting Consult: Brayan Barros PCP: Kristal Sullivan MD Outpt Foreign Policy Officer: Yes . Jace Ko MD at outside [...] insulin pump. Outpt Follow Up-- With outside stave grader. SUBJECTIVE/HPI: CHIEF COMPLAINT: No chief complaint on [...] results, and Other Clinical Notes at the timeof today's encounter. Labs: No components found for: [...] found for: CHOLHDLRATIO No results found for: [id number] Lab Results Component Value Date TSH 2.48 [...] infiltrates masses or pleural effusions Right jugular tunneleddialysis catheter, left coronary artery stent with calcified [...] 08/23/2024 [facility] Name[facility] 1980 [id number] Exam Date/Time: 08/23/2024 13:22 Procedure: XR CHEST 1 VIEW Ordering Provider: STEEN SHELDON Reason For Exam: concern for pna PORTABLE CHEST X-RAY CLINICAL INDICATION: concern for pna A portable frontal view of the chest was obtained. COMPARISON: None FINDINGS: The cardiac silhouette is within normal limits. Right jugular dialysis catheter terminates near the junction of the superior vena cavaand right atrium. No focal consolidation is seen [...] counseling and coordinating care. I have reviewed diagnosticworkup and images. I have reviewed outpatient and inpatient notes. I have discussed the case with the primary team and the nurse taking care of the patient. Additional Notes: Pt without CSII supplies. Will switch to subcutaneous BB therapy tonight. Pt and nurse instructed to stop insulin pump 2h post lantus admin. Will follow. * Jennifer Herrera PharmD - 08/24/2024 7:38 AM EDT Vancomycin therapy has been discontinued by Dr. Munson on 08/24/24. Thank you for the consult. Pharmacy signing off for vancomycin dosing. Jennifer Herrera PharmD Date: 08/24/24 Time: 7:38 AM * Juani Davis MD - 08/23/2024 9:45 PM EDT Brief Overnight Note Received page from RN [...] he is saying that didn't help either requestingphenergan. Added 1x PRN oxycodone, 5 mg, PO for severe pain and 1x PRN phenergan, 6.25 mg, PO or IM for nausea/vomiting. documented in this [facility]05-30-2025 Plan of care note* Care Plan - Lara Prescott RN - 08/27/2024 10:29 PM EDT Problem: Knowledge Deficit Goal: Patient/family/caregiver demonstrates understanding [...] decisions related to nutrition Collaborate with clinical ballast cleaning operator Problem: Safety - Adult Goal: Free from [...] chronic conditions and comorbid symptoms for stability, deterioration,or improvement Collaborate with multidisciplinary team to address chronic and comorbid conditions and prevent exacerbation or deterioration Update acute care plan with appropriate goals if chronic or comorbid symptoms are exacerbated and prevent overall improvement and discharge Problem: Problem Interventions Goal: Assess Nutritional Intake Outcome: Progressing [facility]oy[facility]z89-43-3690 Miscellaneous Notes* Care Plan - Lara Prescott RN - 08/27/2024 10:29 PM EDT Problem: Knowledge Deficit Goal: Patient/family/caregiver demonstrates understanding [...] decisions related to nutrition Collaborate with clinical ballast cleaning operator Problem: Safety - Adult Goal: Free from [...] maintained or improved Outcome: Progressing Flowsheets (Taken 08/27/2024 2228) Care Plan - Patient's Chronic Conditions and Co-Morbidity Symptoms are Monitored and Maintained or Improved: Monitor and assess patient's chronic conditions and comorbid symptoms for stability, deterioration,or improvement Collaborate with multidisciplinary team to address chronic and comorbid conditions and prevent exacerbation or deterioration Update acute care plan with appropriate goals if chronic or comorbid symptoms are exacerbated and prevent overall improvement and discharge Problem: Problem Interventions Goal: Assess Nutritional Intake Outcome: Progressing * Care Plan - Mike Lopez RN - 08/27/2024 5:54 PM EDT Problem: Knowledge Deficit Goal: Patient/family/caregiver demonstrates understanding [...] 1722 by Mike Lopez RN Outcome: Progressing * Care Plan - Mike Lopez RN - 08/27/2024 5:22 PM EDT Problem: Knowledge Deficit Goal: Patient/family/caregiver demonstrates understanding [...] monitored and maintained or improved Outcome: Progressing * Care Coordination - Bebe Verdin RN - 08/27/2024 2:14 PM EDT Spoke with [facility] Tammy and updated that plan was to discharge Friday with abx after dialysis. They are able to accept. OPAT faxed to facility. * Care Coordination - Bebe Verdin RN - 08/27/2024 10:47 AM EDT IV ancef continued. Plan for fci abx with dialysis. ID following- waiting for culture results. OPAT to be written. Anticipate discharge home with no needs. * Care Plan - Alfred Tavarez RN - 08/27/2024 12:47 AM EDT Problem: Knowledge Deficit Goal: Patient/family/caregiver demonstrates understanding of disease process, treatment plan, medications, and discharge instructions Outcome: Progressing Problem: Potential for Compromised Skin Integrity Goal: Skin Integrity is Maintained or Improved Outcome: Progressing * Care Coordination - Bebe Verdin RN - 08/26/2024 10:49 AM EDT IV ancef continued. Repeat cultures pending. 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 Nephrology following. Anticipate discharge home with no needs. * Care Coordination - Bebe Verdin RN - 08/25/2024 10:44 AM EDT Dialysis cath removed yesterday for line holiday. If HD needed a temp line can be placed per ID. Repeat culture ordered- 1 set pending. IV ancef continued- possible need for intermediate manager abx. GI s/o. Hepatobiliary surg consulted. Endo/ ID following. Anticipate discharge home with no needs. * Perioperative Nursing Note - Romero Wheeler RN - 08/24/2024 5:20 PM EDT Central Line Removal Note Line Type: Tunneled [...] The insertion site and entire exposed catheter andlumens was cleaned with antiseptic spray. Sterile gloves were donned. Sutures were cut and removed from the skin. Breathing exercises were explained to the patient. The patient was laid flat. Sterilegauze was placed over the insertion site and the entire intact catheter and cuff was removed without incident. Pressure was held at the site until hemostasis was achieved. Skin was cleansed of antiseptic with saline moistened gauze. Site was covered with a dry sterile dressing. Patient tolerated the procedure well. Everyone in the room wore a mask for the duration of the procedure. * Care Coordination - Bebe Verdin RN - 08/24/2024 10:57 AM EDT Pt adm for tx/ eval of sepsis- transfer from [facility]. HD- MWF. IV zosyn/ vanc continued. Respiratory culture positive. BC positive. XR chest/ CT abd pelvis completed. Echo pending. Per nursing pt is vomiting today. GI/ID consulted. Anticipate discharge home. Possible intermediate manager abx. * Care Plan - Mike Lopez RN - 08/23/2024 4:49 PM EDT Problem: Knowledge Deficit Goal: Patient/family/caregiver demonstrates understanding [...] - Adult Goal: Free from fall injury 08/23/20241648 by Mike Lopez RN Outcome: Progressing 08/23/2024 1046 by Mike Lopez RN Outcome: Progressing Problem: Chronic Conditions and Co-morbidities Goal: Patient's chronic conditions and co-morbidity symptoms are monitored and maintained or improved 08/23/2024 1649 by Mike Lopez RN Outcome: Progressing 08/23/2024 1046 by Mike Lopez RN Outcome: Progressing * Care Plan - Mike Lopez RN - 08/23/2024 10:45 AM EDT Problem: Knowledge Deficit Goal: Patient/family/caregiver demonstrates understanding [...] or improved Outcome: Progressing documented in this [facility]05-30-2025 Plan of care note* Care Plan - Mike Lopez RN - 08/27/2024 5:54 PM EDT Problem: Knowledge Deficit Goal: Patient/family/caregiver demonstrates understanding [...] 1722 by Mike Lopez RN Outcome: Progressing [facility] HospitalCmwnut21-03-7196 Plan of care note* Care Plan - Mike Lopez RN - 08/27/2024 5:22 PM EDT Problem: Knowledge Deficit Goal: Patient/family/caregiver demonstrates understanding [...] monitored and maintained or improved Outcome: Progressing [facility] HospitalDpiiyi13-41-8661 [facility] - Infectious Diseases Advanced Practice Provider [...] 1545 136/88 -- -- 93 -- -- 05/30/25 1530 142/83 -- -- 88 -- -- [...] (97.6 ?F) Temporal 92 16 97 % 08/26/24 2027 157/94 36.4 ?C (97.5 ?F) Temporal 99 [...] normal. Behavior: Behavior normal. Labs: Recent Labs 08/25/2451808/26/2455108/27/24215 NA 135* 135* 134* K 3.5 4.4 4.0 CL 98 102 102 CO2 24 23 24 BUN 43* 30* 36* CREATININE 7.05* 5.33* 6.32* GLUCOSE 128* 248* 168* CALCIUM 9.5 9.0 9.5 PROT 6.7 6.3* 6.3* 7.0 BILITOT 0.4 0.3 0.3 0.3 ALKPHOS 128 206* 206* 222* AST 110* 114* 114* 64* ALT 63* 109* 109* 70* Recent Labs 08/25/2451808/26/2452 08/27/24215 WBC 6.8 4.2 6.3 HGB 9.6* 9.5* [...] for MSSA bacteremia suspected 2/2 TDC s/p (more content not included)...[facility]05-30-2025 Note* Care Coordination - Bebe Verdin RN - 08/27/2024 2:14 PM EDT Spoke with JABARI Nicole and updated that plan was to discharge Friday with abx after dialysis. They are able to accept. OPAT [facility] to facility. [facility] HospitalKieohe84-14-7462 Note* Care Coordination - Bebe Verdin RN - 08/27/2024 2:14 PM EDT Spoke with Reji Nicole and updated that plan was to discharge Friday with abx after dialysis. They are able to accept. OPAT faxed to facility. [facility] HospitalAzpxug45-40-5673 Nurse Note* Dieter Jean - 08/27/2024 1:53 PM EDT Patient Name: Farrah Gonzales Patient : 1980 Acct: [id number] Date of Admission: 08/23/2024 Room[facility]Bed: [facility] A Code Status: Full Code Allergies: Allergies[1] [...] - Before each treatment: Dialysis Machine No.: [id number] RO Machine Number: [id number] Dialyzer Lot No.: [id number] Tubing Lot Number: [id number] All Connections Secure: Yes Venous Parameters Set: Yes Arterial Parameters Set: Yes NS Bag: Yes Saline Line Double Clamped: Yes Dialyzer: Revaclear 300 Prime Volume (mL): 200 mL RO Machine Number: [id number] RO Machine Log Sheet Completed: Yes Machine Alarm Self Test: Completed, Passed (08/27/24 1300) Air Foam Detector: Tested, Proper Function, pH Reading Extracorporeal Circuit Tested for Integrity: Yes Machine Conductivity: 13..8 Manual Conductivity: 13.8 Manual Ph: 7.14 Bleach Test (Neg): Yes Bath Temperature: 36 C (96.8 F) Conductivity Meter Serial #: [id number] Machine Functioning Alarm Free? Yes Dialysis Bath: K+ (Potassium): 3 Ca+ (Calcium): 2.5 Na+ (Sodium): 137 HCO3 (Bicarb): 32 Bicarbonate Concentrate Lot No.: [id number] Acid Concentrate Lot No.: [id number] Chlorine Testing - Before each treatment and [...] within reach and educated on use of calllight 08/27/24 1339 200 mL/min 500 ml/hr -30 [...] chat Response: Waiting for response Notification Time: 1742 Handoff complete and report given to Primary [...] without acute organ dysfunction (CMS/HCC) (HCC) [3] [facility] HospitalZbfiiu82-36-0178 Nurse Note* Dieter Jean - 08/27/2024 1:53 PM EDT Patient Name: Farrah Gonzales Patient : 1980 Acct: [id number] Date of Admission: 08/23/2024 Room/Bed: [facility] A Code Status: Full Code Allergies: Allergies[1] [...] - Before each treatment: Dialysis Machine No.: [id number] Machine Number: [id number] Dialyzer Lot No.: [id number] Tubing Lot Number: [id number] All Connections Secure: Yes Venous Parameters Set: Yes Arterial Parameters Set: Yes NS Bag: Yes Saline Line Double Clamped: Yes Dialyzer: Revaclear 300 Prime Volume (mL): 200 mL RO Machine Number: [id number] RO Machine Log Sheet Completed: Yes Machine Alarm Self Test: Completed, Passed (08/27/24 1300) Air Foam Detector: Tested, Proper Function, pH Reading Extracorporeal Circuit Tested for Integrity: Yes Machine Conductivity: 13..8 Manual Conductivity: 13.8 Manual Ph: 7.14 Bleach Test (Neg): Yes Bath Temperature: 36 C (96.8 F) Conductivity Meter Serial #: [id number] Machine Functioning Alarm Free? Yes Dialysis Bath: K+ (Potassium): 3 Ca+ (Calcium): 2.5 Na+ (Sodium): 137 HCO3 (Bicarb): 32 Bicarbonate Concentrate Lot No.: [id number] - [id number] Acid Concentrate Lot No.: [id number] Chlorine Testing - Before each treatment and every 4 hours: Time On: 1338 Time Off: 1639 Treatment Goal: 1L Weight [...] within reach and educated on use of calllight 08/27/24 1339 200 mL/min 500 ml/hr -30 [...] for response Notification Date: 08/27/24 Notification Time: 174 Reason for Communication: Review case Provider Role: Attending physician Method of Communication: Secure chat Response: Waiting for response Notification Time: 1742 Handoff complete and report given to Primary [...] without acute organ dysfunction (CMS/HCC) (HCC) [3] * Mike Lopez RN - 08/27/2024 10:18 AM EDT Ok per primary to take shower * Michelle Shafer RN - 08/25/2024 5:32 PM EDT Patient Name: Farrah Gonzales Patient : 1980 Acct: [id number] Date of Admission: 08/23/2024 Room/Bed: [facility] A Code Status: Full Code Allergies: Allergies[1] [...] 4 Other (Comment) None (Room air) Clear [place] Warm;Dry Soft;Flat Active NoneNone None None Labs Lab Results Component Value Date/Time WBC 6.8 08/25/2024518 HGB 9.6 (L) 08/25/2024518 HCT 28.2 (L) 08/25/2024518 PLT 171 08/25/2024518 NA 135 (L) 08/25/2024518 K 3.5 08/25/2024518 CL 98 08/25/2024518 CO2 24 08/25/2024518 BUN 43 (H) 08/25/2024518 CREATININE 7.05 (H) 08/25/2024518 CALCIUM 9.5 08/25/2024518 PHOS 3.9 08/25/2024518 IV Drips and Rate/Dose Continuous Meds[3] Safety - Before each treatment: Dialysis Machine No.: [id number] RO Machine Number: [id number] Dialyzer Lot No.: [id number] Tubing Lot Number: [id number] All Connections Secure: Yes Venous Parameters Set: Yes Arterial Parameters Set: Yes NS Bag: Yes Saline Line Double Clamped: Yes Dialyzer: Nipro Prime Volume (mL): 200 mL RO Machine Number: [id number] RO Machine Log Sheet Completed: Yes Machine Alarm Self Test: Completed, Passed (1655) (08/25/241655) Air Foam Detector: Tested, Proper Function, pH Reading Extracorporeal Circuit Tested for Integrity: Yes Machine Conductivity: 14.0 Manual Conductivity: 13.8 Manual Ph: 7.4 Bleach Test (Neg): Yes Bath Temperature: 36 C (96.8 F) Conductivity Meter Serial #: [id number] Machine Functioning Alarm Free? Yes Dialysis Bath: K+ (Potassium): 3 Ca+ (Calcium): 2.5 Na+ (Sodium): 137 HCO3 (Bicarb): 32 Bicarbonate Concentrate Lot No.: [id number] Acid Concentrate Lot No.: [id number] Chlorine Testing - Before each treatment and [...] 600 Yes Pt visiting with family, UF [id number] 08/25/24 1930 200 mL/min 500 ml/hr -50 mmHg 160 mmHg 80 600 Yes O signs of distress 08/25/24 194 200 mL/min 500 ml/hr -60 mmHg 160 mmHg 70 600 Yes Pt tolerating Tx well, UF removed 1348 08/25/241999 200 mL/min 500 ml/hr -50 mmHg 160 mmHg 70 600 Yes pt tolerated tx well. UF 1462 Vital Signs Patient Vitals for the past 24 hrs: BP Temp Temp src Pulse Resp SpO2 Weight 08/25/242029 159/74 36.1 C (97 F) -- 106 16 97 % -- 08/25/241999 158/89 -- -- 109 -- -- -- 08/25/24 1945 (!) 164/87 -- [...] List Diagnosis History of myocardial infarction [3] * Alta Coe RN - 08/25/2024 1:23 PM EDT Instructed patient to turn off insulin pump per endocrine order last pm. Patient confirmed insulin pump is off. * Taylor Youngblood RN - 08/24/2024 5:51 PM EDT CGM 344 * Silva Rodriguez LPN - 08/24/2024 12:02 PM EDT CGM reading is 199 * Silva Rodriguez LPN - 08/24/2024 8:09 AM EDT Patients CGM reading 207 * Joanna Rolon RN - 08/23/2024 10:00 PM EDT Pt.'s insulin pump reading glucose 180 * Ross Jesus RN - 08/23/2024 9:11 PM EDT Patient Name: Farrah Gonzales Patient : 1980 Acct: [id number] Date of Admission: 08/23/2024 Room[facility]Bed: [facility] A Code Status: Full Code Allergies: Allergies[1] [...] 4 Other (Comment) -- None (Room air) [place] Warm;Dry -- -- None None None None Incapacitated RN and Pt education done Medication (See MAR) 08/23/242357 Alert (0) 4 Other (Comment) Other (Comment) None (Room air) [place] Warm;Dry Soft ActiveNone None None None -- -- Labs Lab [...] - Before each treatment: Dialysis Machine No.: [id number] RO Machine Number: [id number] Dialyzer Lot No.: [id number] Tubing Lot Number: [id number] All Connections Secure: Yes Venous Parameters Set: Yes Arterial Parameters Set: Yes NS Bag: Yes Saline Line Double Clamped: Yes Dialyzer: Nipro Prime Volume (mL): 200 mL RO Machine Number: [id number] RO Machine Log Sheet Completed: Yes Machine Alarm Self Test: Completed, Passed (At 2016) (08/23/242015) Air Foam Detector: Tested, Proper Function, pH Reading Extracorporeal Circuit Tested for Integrity: Yes Machine Conductivity: 13.8 Manual Conductivity: 13.6 Manual Ph: 7.2 Bleach Test (Neg): Yes Bath Temperature: 36 C (96.8 F) Conductivity Meter Serial #: [id number] Machine Functioning Alarm Free? Yes Dialysis Bath: K+ (Potassium): 3 Ca+ (Calcium): 2.5 Na+ (Sodium): 137 HCO3 (Bicarb): 32 Bicarbonate Concentrate Lot No.: [id number] - [id number] Acid Concentrate Lot No.: [id number] Chlorine Testing - Before each treatment and every 4 hours: Time On: 2024 Time Off: 2324 Treatment Goal: 1L Weight Height: 180.3 cm (5' 11) (08/23/241030) Weight: 88.5 kg (195 lb) (08/23/241030) BMI (Calculated): 27.21 (08/23/241030) 1st check: less than 0.1 ppm at: 2000 2nd check: less than 0.1 ppm at: 2240 3rd check: Not Applicable (if greater than [...] -- -- 112 -- -- -- -- 08/23/24 194 (!) 163/87 37.1 C (98.7 F) Temporal [...] and report given to Primary RN at 9961. Primary RN (First Initial, Last Name, Title): [...] infarction [3] Insulin Pump - (Patient Supplied), * Mike Lopez RN - 08/23/2024 6:25 PM EDT Fistula to Lfa/wrist is warm to touch, secure messaging to primary * Mike Lopez RN - 08/23/2024 5:55 PM EDT Blood sugar per patients omni pod 176 documented in this [facility]05-30-2025 Note* Care Coordination - Bebe Verdin RN - 08/27/2024 10:47 AM EDT IV ancef continued. Plan for fci abx with dialysis. ID following- waiting for culture results. OPAT to be written. Anticipate discharge home with no needs. [facility] HospitalLzrxwb08-62-2733 Note* Care Coordination - Bebe Verdin RN - 08/27/2024 10:47 AM EDT IV ancef continued. Plan for fci abx with dialysis. ID following- waiting for culture results. OPAT to be written. Anticipate discharge home with no needs. [facility] HospitalEriiph16-75-7204 Nurse Note* Mike Lopez RN - 08/27/2024 10:18 AM EDT Ok per primary to take shower [facility] HospitalMiqwit78-50-6387 NoteNephrology Progress Note Following for ESRD Pt seen [...] data in the 24 hours ending 08/27/24 08 Physical exam: Constitutional: nad Cardiovascular: Normal S1, S2 without m/r/g Respiratory: CTAB without w/r/r Abdomen: +bs, soft, nt, nd Ext: no lower extremity edema Data: Labs: Recent Labs 08/25/2451808/26/2455108/27/24 0216 WBC 6.8 4.2 6.3 HGB 9.6* 9.5* 10.5* HCT 28.2* 28.4* 32.3* MCV 89.8 90.7 92.0 PLT 171 171 215 Recent Labs 08/25/2451808/26/2455108/27/246 NA 135* 135* 134* K 3.5 4.4 [...] HD - continue HD MWF at [facility] tammy - Dr Diaz OP manager green - right TDC CDI removed for line [...] now using AVF -has mature AVF in [place], used for HD & tolerated well -hd later today - monitor volume status electrolytes daily Thank you for allowing me to care for pt. Feel free to reach out with any questions or concerns Kim Blackwell APRN ARM REST BUILDER A-G DIAMOND EXPERT [facility] [place] [phone] Pt seen and examined independently by me. I reviewed with BLUEPRINT MAKER-ARM REST BUILDER the medical history and the findings on physical examination. I discussed the patient?s diagnosis and concur with the treatment plan as documented in his note. Please call [phone] or message me through OptuLink with any questions or concerns.[facility]05-30-2025 Plan of care note* Care Plan - Alfred Tavarez RN - 08/27/2024 12:47 AM EDT Problem: Knowledge Deficit Goal: Patient/family/caregiver demonstrates understanding of disease process, treatment plan, medications, and discharge instructions Outcome: Progressing Problem: Potential for Compromised Skin Integrity Goal: Skin Integrity is Maintained or Improved Outcome: Progressing [facility] HospitalYugojm13-47-8481 [facility] - Infectious Diseases Advanced Practice Provider [...] Labs: Recent Labs 08/23/24 1300 08/24/24 0412 08/25/2451808/26/24 0552 NA 134* 135* 135* 135* K [...] Mildly increased wall thickne (more content not included)...[facility]05-29-2025 Note* Care Coordination - Bebe Verdin RN - 08/26/2024 10:49 AM EDT IV ancef continued. Repeat cultures pending. 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 Nephrology following. Anticipate discharge home with no needs. [facility] HospitalDmsbpj82-57-9190 Note* Care Coordination - Bebe Verdin RN - 08/26/2024 10:49 AM EDT IV ancef continued. Repeat cultures pending. 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 Nephrology following. Anticipate discharge home with no needs. [facility] HospitalMqhppc36-54-0855 NoteNephrology Progress Note Following for ESRD mgt Pt [...] HD - continue HD MWF at [facility] tammy - Dr Diaz OP manager green - right TDC CDI removed for line [...] any questions or concerns Kim Blackwell APRN ARM REST BUILDER A-G DIAMOND EXPERT [facility] [phone] Pt seen and examined independently by me. I reviewed with , BLUEPRINT MAKER-ARM REST BUILDER the medical history and the findings on physical examination. I discussed the patient?s diagnosis and concur with the treatment plan as documented in his note. Please call [phone] or message me through OptuLink with any questions or concerns.[facility]05-28-2025 Nurse Note* Michelle Shafer RN - 08/25/2024 5:32 PM EDT Patient Name: Farrah Gonzales Patient : 1980 Acct: [id number] Date of Admission: 08/23/2024 [facility]: [facility] A Code Status: Full Code Allergies: Allergies[1] [...] 4 Other (Comment) None (Room air) Clear [place] Warm;Dry Soft;Flat Active NoneNone None None Labs Lab Results Component Value Date/Time WBC 6.8 08/25/2024518 HGB 9.6 (L) 08/25/2024518 HCT 28.2 (L) 08/25/2024518 PLT 171 08/25/2024518 NA 135 (L) 08/25/2024518 K 3.5 08/25/2024518 CL 98 08/25/2024518 CO2 24 08/25/2024518 BUN 43 (H) 08/25/2024518 CREATININE 7.05 (H) 08/25/2024518 CALCIUM 9.5 08/25/2024518 PHOS 3.9 08/25/2024518 IV Drips and Rate/Dose Continuous Meds[3] Safety - Before each treatment: Dialysis Machine No.: [id number] RO Machine Number: [id number] Dialyzer Lot No.: [id number] Tubing Lot Number: [id number] All Connections Secure: Yes Venous Parameters Set: Yes Arterial Parameters Set: Yes NS Bag: Yes Saline Line Double Clamped: Yes Dialyzer: Nipro Prime Volume (mL): 200 mL RO Machine Number: [id number] RO Machine Log Sheet Completed: Yes Machine Alarm Self Test: Completed, Passed (1655) (08/25/241655) Air Foam Detector: Tested, Proper Function, pH Reading Extracorporeal Circuit Tested for Integrity: Yes Machine Conductivity: 14.0 Manual Conductivity: 13.8 Manual Ph: 7.4 Bleach Test (Neg): Yes Bath Temperature: 36 C (96.8 F) Conductivity Meter Serial #: [id number] Machine Functioning Alarm Free? Yes Dialysis Bath: K+ (Potassium): 3 Ca+ (Calcium): 2.5 Na+ (Sodium): 137 HCO3 (Bicarb): 32 Bicarbonate Concentrate Lot No.: [id number] Acid Concentrate Lot No.: [id number] Chlorine Testing - Before each treatment and [...] 600 Yes Pt visiting with family, UF [id number] 08/25/24 1930 200 mL/min 500 ml/hr -50 [...] -- -- 109 -- -- -- 08/25/24 1945 (!) 164/87 -- [...] List Diagnosis History of myocardial infarction [3] [facility]05-28-2025 Consult note* Sloan Russo DO - 08/25/2024 2:32 PM EDTAssociated Order(s): IP CONSULT TO HEPATOBILIARY SURGERY / SURGICAL ONCOLOGY Department of Surgery Surgical Service - 3 Resident Consult Note 08/24/2024 CHIEF COMPLAINT: No chief complaint on file. Reason for Consult: liver mass HISTORY OF PRESENT ILLNESS: Farrah Gonzales is a 44 y.o. male with a history of T1DM, ESRD on HD via TDC, HTN, [place] s/p stent March2024 on ASA who presented 08/24/24 from [facility] with concern for sepsis. Fevers, hypotension, tachycardia. MSSA bacteremia presumed due to TDC. He states that he had an MRI at [facility] which showed a hemangioma. He denies abdominal [...] right liver mass - requested MRI from [facility] which reportedly shows liver hemangioma. Asymptomatic. No surgical intervention - hepatitis panel negative in 2023 - other management per primary - discussed with Dr. Amie Russo D.O. General Surgery Resident Pager: [phone] [1] Past Medical History: Diagnosis Date End [...] Resource Strain: Low Risk (07/02/2022) Received from [facility] Overall Financial Resource Strain (CARDIA) Difficulty of Paying Living Expenses: Not hard at all Food Insecurity: No Food Insecurity (07/02/2022) Received from [facility] Hunger Vital Sign Worried About Running Out of Food in the Last Year: Never true Ran Out of Food in the Last Year: Never true Transportation Needs: No Transportation Needs (07/02/2022) Received from [facility] PRAPARE - Transportation Lack of Transportation (Medical): No Lack of Transportation (Non-Medical): No Physical Activity: Inactive (07/02/2022) Received from [facility] Exercise Vital Sign Days of Exercise per Week: 0 days Minutes of Exercise per Session: 0 min Stress: No Stress Concern Present (07/02/2022) Received from [facility] [place] [facility] [employer] [facility] - Occupational Stress Questionnaire Feeling of Stress : Not at all Social Connections: Socially Integrated (07/02/2022) Received from [facility] Social Connection and Isolation Panel [NHANES] Frequency of Communication with Friends and Family: More than three times a week Frequency of Social Gatherings with Friends and Family: More than three times a week Attends Hinduism Services: More than 4 times per year Active Member of Clubs or Organizations: Yes Attends Club or Organization Meetings: More than 4 times per year Marital Status: Living with partner Housing Stability: Low Risk (07/02/2022) Received from [facility] Housing Stability Vital Sign Unable to Pay [...] A&Ox3; appropriate judgement [facility] Work Phone: [phone]) 172-715805-28-2025 Consult note* Sloan Russo DO - 08/25/2024 2:32 PM EDTAssociated Order(s): IP CONSULT TO HEPATOBILIARY SURGERY / SURGICAL ONCOLOGY Department of Surgery Surgical Service - 3 Resident Consult Note 08/24/2024 CHIEF COMPLAINT: No chief complaint on file. Reason for Consult: liver mass HISTORY OF PRESENT ILLNESS: Farrah Gonzales is a 44 y.o. male with a history of T1DM, ESRD on HD via TDC, HTN, [place] s/p stent March2024 on ASA who presented 08/24/24 from [facility] with concern for sepsis. Fevers, hypotension, tachycardia. MSSA bacteremia presumed due to TDC. He states that he had an MRI at [facility] which showed a hemangioma. He denies abdominal [...] right liver mass - requested MRI from [facility] which reportedly shows liver hemangioma. Asymptomatic. No surgical intervention - hepatitis panel negative in 2023 - other management per primary - discussed with Dr. Amie Russo D.O. General Surgery Resident Pager: [phone] [1] Past Medical History: Diagnosis Date End [...] Resource Strain: Low Risk (07/02/2022) Received from [facility] Overall Financial Resource Strain (CARDIA) Difficulty of Paying Living Expenses: Not hard at all Food Insecurity: No Food Insecurity (07/02/2022) Received from [facility] Hunger Vital Sign Worried About Running Out of Food in the Last Year: Never true Ran Out of Food in the Last Year: Never true Transportation Needs: No Transportation Needs (07/02/2022) Received from [facility] PRAPARE - Transportation Lack of Transportation (Medical): No Lack of Transportation (Non-Medical): No Physical Activity: Inactive (07/02/2022) Received from [facility] Exercise Vital Sign Days of Exercise per Week: 0 days Minutes of Exercise per Session: 0 min Stress: No Stress Concern Present (07/02/2022) Received from [facility] [place] [facility] [employer] [facility] - Occupational Stress Questionnaire Feeling of Stress : Not at all Social Connections: Socially Integrated (07/02/2022) Received from [facility] Social Connection and Isolation Panel [NHANES] Frequency of Communication with Friends and Family: More than three times a week Frequency of Social Gatherings with Friends and Family: More than three times a week Attends Hinduism Services: More than 4 times per year Active Member of Clubs or Organizations: Yes Attends Club or Organization Meetings: More than 4 times per year Marital Status: Living with partner Housing Stability: Low Risk (07/02/2022) Received from [facility] Housing Stability Vital Sign Unable to Pay [...] ROM grossly normal Psych: A&Ox3; appropriate judgement * Raeann Cowart, BLUEPRINT MAKER - ARM REST BUILDER - 08/24/2024 10:42 AM EDTAssociated Order(s): IP CONSULT TO GI Department of Internal Medicine Gastroenterology Attending Consult Note Reason for Consult: The patient was seen in consultation at the request of Dr. Hayde Barros re: 7.7 cmnew liver mass on CT imaging. CHIEF COMPLAINT: Fever body aches History Obtained From: Patient and EMR HISTORY OF PRESENT ILLNESS: The patient is a 44 y.o. male with significant past medical history of T1DM, ESRD, and HTN who presents as a transfer from [facility] ED with sepsis (T 103, BP 93/78. [...] Resource Strain: Low Risk (07/02/2022) Received from [facility] Overall Financial Resource Strain (CARDIA) Difficulty of Paying Living Expenses: Not hard at all Food Insecurity: No Food Insecurity (07/02/2022) Received from [facility] Hunger Vital Sign Worried About Running Out of Food in the Last Year: Never true Ran Out of Food in the Last Year: Never true Transportation Needs: No Transportation Needs (07/02/2022) Received from [facility] PRAPARE - Transportation Lack of Transportation (Medical): No Lack of Transportation (Non-Medical): No Physical Activity: Inactive (07/02/2022) Received from [facility] Exercise Vital Sign Days of Exercise per Week: 0 days Minutes of Exercise per Session: 0 min Stress: No Stress Concern Present (07/02/2022) Received from [facility] [place] [facility] [employer] [facility] - Occupational Stress Questionnaire Feeling of Stress : Not at all Social Connections: Socially Integrated (07/02/2022) Received from [facility] Social Connection and Isolation Panel [NHANES] Frequency of Communication with Friends and Family: More than three times a week Frequency of Social Gatherings with Friends and Family: More than three times a week Attends Hinduism Services: More than 4 times per year Active Member of Clubs or Organizations: Yes Attends Club or Organization Meetings: More than 4 times per year Marital Status: Living with partner Intimate Partner Violence: Not on file Housing Stability: Low Risk (07/02/2022) Received from [facility] Housing Stability Vital Sign Unable to Pay [...] few small scattered colonic diverticuli. Endoscopic Review [facility] Gastrointestinal Endoscopy Patient Name: Laurie Gonzales Procedure Date: 10/09/2011 7:00 AM Date of : 1980 Admit Type: Ambulatory Age: 31 Gender: Male Note Status: Finalized Procedure: Upper GI endoscopy Indications: Heartburn. Nausea with vomiting. Recently admitted to hospital in [facility] in June with severe DKA. [...] on HD M,W,F Plan: Patient transferred to [facility] from [facility] ED for sepsis and need for HD. [...] 1,000 mg, 1,000 mg, Oral, TID, Brayan Barros, , 1,000 mg at 08/24/24 0929 amLODIPine (Norvasc) tablet 10 mg, 10 mg, Oral, Daily, Palvir Baadh, MD ceFAZolin (Ancef) 1,000 mg in sodium chloride 0.9 % 50 mL IVPB, 1,000 mg, IntraVENous, q24h, MD Shawn dextrose 5 % infusion, 100 mL/hr, IntraVENous, PRN, rBayan Barros DO dextrose 50 % solution 12.5 [...] - (Patient Supplied), , SubCUTAneous, Continuous, Akbar Brown, New Bag at 08/23/24 1358 Lidocaine 4 % patch 1 patch, 1 patch, TransDERmal, Daily PRN, Brayan Barros DO, 1 patch at 08/23/24 1819 [Held by provider] metoprolol succinate XL (Toprol-XL) 24 hr tablet 25 mg, 25 mg, Oral, Daily, DO Laure ondansetron ODT (Zofran-ODT) disintegrating tablet 4 mg, [...] 10 mg, Oral, q6h PRN OR prochlorperazine (Compazine)injection 10 mg, 10 mg, IntraVENous, q6h PRN, 10 mg at 08/24/24 0824 OR prochlorperazine (Compazine) suppository 25 mg, 25 mg, Rectal, q12h PRN, Palvir MD Arpit rosuvastatin (Crestor) tablet 20 mg, 20 mg, Oral, Nightly, Brayan Barros DO, 20 mg at 08/23/242007 [2] No family history on file. Cosigned by Juan Licona MD at 08/25/2024 3:06 PM EDT * Tracy Childs PA-C - 08/24/2024 9:46 AM EDTAssociated Order(s): IP CONSULT TO INFECTIOUS DISEASES Images from the original note were not included. [facility] - Infectious Diseases Advanced Practice Provider Consult Note Reason for Consult: MSSA bacteremia History of Present Illness: 44 yo male with PMHx significant for T1DM, ESRD via TDC, and HTN who presents 08/23 from [facility] ED with fever, hypotension, tachycardia concerning for [...] December. Denies any redness or swelling around catheteror any drainage. No other new exacerbating or alleviating factors. On presentation, patient afebrile, normotensive, on room air. Labs- WBC 20.3-> 10.7, lactic acid1.5, procal 5.94, BNP [address]. CXR negative. CT chest/abd/pelvis performed and without [...] Resource Strain: Low Risk (07/02/2022) Received from [facility] Overall Financial Resource Strain (CARDIA) Difficulty of Paying Living Expenses: Not hard at all Food Insecurity: No Food Insecurity (07/02/2022) Received from [facility] Hunger Vital Sign Worried About Running Out of Food in the Last Year: Never true Ran Out of Food in the Last Year: Never true Transportation Needs: No Transportation Needs (07/02/2022) Received from [facility] PRAPARE - Transportation Lack of Transportation (Medical): No Lack of Transportation (Non-Medical): No Physical Activity: Inactive (07/02/2022) Received from [facility] Exercise Vital Sign Days of Exercise per Week: 0 days Minutes of Exercise per Session: 0 min Stress: No Stress Concern Present (07/02/2022) Received from [facility] [place] [employer] - Occupational Stress Questionnaire Feeling of Stress : Not at all Social Connections: Socially Integrated (07/02/2022) Received from [facility] Social Connection and Isolation Panel [NHANES] Frequency of Communication with Friends and Family: More than three times a week Frequency of Social Gatherings with Friends and Family: More than three times a week Attends Hinduism Services: More than 4 times per year Active Member of Clubs or Organizations: Yes Attends Club or Organization Meetings: More than 4 times per year Marital Status: Living with partner Intimate Partner Violence: Not on file Housing Stability: Low Risk (07/02/2022) Received from [facility] Housing Stability Vital Sign Unable to Pay for Housing in the Last Year: No Number of Places Lived in the Last Year: 1 Unstable Housing in the Last Year: No Family History: Family History[5] Review of Systems: Review of Systems Constitutional: Negative for chills, fatigue and fever. HENT: Negative for congestion, ear pain, postnasal drip, rhinorrhea, sinus pressure, sinus pain andsore throat. Eyes: Negative for pain, discharge and [...] -- -- 113 -- -- -- -- 08/23/245 151/81 -- -- 117 -- -- -- [...] stamp for accounting for open encounter. Tracy [place] [facility] [place] Disease [...] 50 mL IVPB 1,000 mg IntraVENous q24h Palamie Munson MD dextrose 5 % infusion 100 mL/hr IntraVENous PRN Brayan Luz Marina, DO dextrose 50 % solution 12.5 g 12.5 g IntraVENous PRN Brayan Luz Marina, DO glucagon (human recombinant) injection 1 mg 1 mg IntraMUSCular PRN Brayan Luz Marina, DO glucose oral gel 15 g 15 g Oral PRN Brayan Luz Marina, DO heparin injection 1,600 Units 1,600 Units IntraCATHeter PRN Osmel Q MD Lupe 1,600 Units at 08/23/24 2333 heparin injection 1,600 Units 1,600 Units IntraCATHeter PRN Osmel Q MD Lupe 1,600 Units at 08/23/24 2333 heparin injection 5,000 Units 5,000 Units SubCUTAneous 3 times per day Brayan Luz Marina, DO 5,000 Units at 08/24/24 0540 Insulin Pump - (Patient Supplied) SubCUTAneous Continuous Akbar Ahmet- Angela New Bag at 08/23/24 1358 Lidocaine 4 % patch 1 patch 1 patch TransDERmal Daily PRN Brayan Luz Marina, DO 1 patch at 08/23/24 1819 [Held by provider] metoprolol succinate XL (Toprol-XL) 24 hr tablet 25 mg 25 mg Oral Daily Brayan Luz Marina, DO ondansetron ODT (Zofran-ODT) disintegrating tablet 4 mg 4 mg Oral q8h PRN Brayanreema Barros, DO Or ondansetron (Zofran) injection 4 mg 4 mg IntraVENous q6h PRN Brayan Barros, DO 4 mg at 08/24/24 0540 pantoprazole [...] mg Oral Nightly Brayan Luz Marina, DO 20 mg at 08/23/242007 [4] No Known Allergies [5] No family history on file. Cosigned by Lio Sue MD at 08/24/2024 3:43 PM EDT * Osmel Andrade MD - 08/23/2024 2:37 PM EDTAssociated Order(s): IP CONSULT TO NEPHROLOGY [facility] [address] [place] [address] Consult Note Patient's Name: Farrah Gonzales 2:37 [...] do not hesitate to contact me at [phone] with any concerns. Osmel Andrade MD 2:37 PM 08/23/2024 Chief Complaint: fever History Obtained From: patient and chart review History of Present Ilness: Farrah Gonzales is a 44 y.o. male with underlying history below who is currently being admitted to the hospital of workup for sepsis. Nephrology is consulted for management of end-stage renal disease Patient dialyzes at [facility] in [place]. His last dialysis treatment was on [...] Oral PRN Brayan Barros, DO heparin injection 5,000 Units 5,000 Units SubCUTAneous 3 times per day Brayan Luz Marina, DO 5,000 Units at 08/23/24 1410 Insulin Pump - (Patient Supplied) SubCUTAneous Continuous Akbar Ahmet- Angela New Bag at 08/23/24 1358 [Held by [...] mg 40 mg Oral qAM AC Brayan Luz Marina, DO piperacillin-tazobactam (Zosyn) 2,250 mg in sodium chloride 0.9 % 50 mL IVPB Mini-Bag Plus 2,250 mgIntraVENous q6h Brayan Luz Marina, DO 16.67 mL/hr at 08/23/24 1410 2,250 mg at 08/23/24 1410 polyethylene glycol (PEG) 3350 (Miralax) packet 17 g 17 g Oral Daily PRN Brayan Luz Marina, DO rosuvastatin (Crestor) tablet 20 mg 20 mg Oral Nightly Brayan Luz Marina, DO vancomycin (Vancocin) 1750 mg in NS 500 mL IVPB (premix) 1,750 mg IntraVENous Once Brayan Luz Marina, DO vancomycin (Vancocin) intermittent dosing (placeholder) Other RX Placeholder Brayan Luz Marina, DO * Den GomesD - 08/23/2024 1:55 PM EDT Images from the original note were not [...] [] CrCl ml/min (Cockcroft-Gault, if ANN, no FRAME POLISHER) Consulted By: Brayan Barros Vancomycin Level: []Trough [...] 1:53 PM Marlene Waller PharmD (available on [employer]) * Akbar Brown - 08/23/2024 12:49 PM EDTAssociated Order(s): IP CONSULT TO ENDOCRINOLOGY Department of Internal Medicine Division of Endocrinology, Diabetes, & Metabolism Endocrinology Note Patient Name: Farrah Gonzales : 1980 AGE: 44 y.o. Room/Bed: [facility]/[address] Admission Date: 08/23/2024 Visit Date: 08/23/2024 Reason for Endocrine Consult: Type 1 diabetes mellitus on insulin pump. Provider/Team Requesting Consult: Brayan Barros PCP: Kristal Sullivan MD Outpt Foreign Policy Officer: Yes . Jace Ko MD at outside [...] insulin pump. Outpt Follow Up-- With outside stave grader. SUBJECTIVE/HPI: CHIEF COMPLAINT: No chief complaint on [...] data in the 24 hours ending 08/23/24 6239 Diet: Adult diet Regular; Low Sodium (2 gm); Low Potassium (Less than 3000 mg/day) Medications (as per EMR): HomeMeds: No current outpatient medications Scheduled Meds:Scheduled Meds[1] Continuous Infusions:Continuous Meds[2] PRN Meds:PRN Meds[3] Diagnostic Workup: I reviewed pertinent Laboratory results, Radiographic results, and Other Clinical Notes at the timeof today's encounter. Labs: No components found for: LABA1C No components found for: EAG No results found for: NA, K, CL, CO2, BUN, CREATININE, GLUCOSE, CALCIUM No results found for: CHLPL, CHOL No results found for: TRIG No results found for: HDL No results found for: LDLCALC No results found for: VLDL No results found for: CHOLHDLRATIO No results found for: HMZA21SQG No results found for: TSH, T2LZYND, P0WTTAB, THYROIDAB Radiology reportsas per the Radiologist Radiology: [...] Never Drug use: Never documented in this [facility]05-28-2025 Nurse Note* Alta Coe RN - 08/25/2024 1:23 PM EDT Instructed patient to turn off insulin pump per endocrine order last pm. Patient confirmed insulin pump is off. [id number] [facility] - Infectious Diseases Advanced Practice Provider [...] Behavior normal. Labs: Recent Labs 08/23/24 1300 08/24/2441108/25/24518 NA 134* 135* 135* K 4.4 4.0 [...] T1DM Plan: Patient with MSSA bacteremia- suspect / TDC. Line removed 08/24 for line holiday. [...] and plan discussed with (more content not included)...[facility]05-28-2025 NoteNephrology Progress Note Following for ESRD mgt Pt seen in room had CVC removed 08/24 for line holiday Has current LAVF placed 07/2023 had revision + bruit /thrill Pt asking if its ok to use AVF was suppose to have US and appt with vascular today in [place] Current Inpatient Medications: Reviewed on MAY. Vitals: [...] HD - continue HD MWF at [facility] tammy - Dr Diaz OP manager green - right TDC CDI removed for line [...] examined independently by me. I reviewed with BLUEPRINT MAKER-ARM REST BUILDER the medical history and the findings on physical examination. I discussed the patient?s diagnosis and concur with the treatment plan as documented in his note. Please call [phone] or message me through [employer] with any questions or concerns.[facility]05-28-2025 Note* Care Coordination - Bebe Verdin RN - 08/25/2024 10:44 AM EDT Dialysis cath removed yesterday for line holiday. If HD needed a temp line can be placed per ID. Repeat culture ordered- 1 set pending. IV ancef continued- possible need for fci abx. GI s/o. Hepatobiliary surg consulted. Endo/ ID following. Anticipate discharge home with no needs. [facility] [id number] Note* Care Coordination - Bebe Verdin RN - 08/25/2024 10:44 AM EDT Dialysis cath removed yesterday for line holiday. If HD needed a temp line can be placed per ID. Repeat culture ordered- 1 set pending. IV ancef continued- possible need for fci abx. GI s/o. Hepatobiliary surg consulted. Endo/ ID following. Anticipate discharge home with no needs. [facility] [id number] Nurse Note* Taylor Youngblood RN - 08/24/2024 5:51 PM EDT CGM 344 [facility] [id number] Nurse Note* Perioperative Nursing Note - Romero Wheeler RN - 08/24/2024 5:20 PM EDT Central Line Removal Note Line Type: Tunneled [...] The insertion site and entire exposed catheter andlumens was cleaned with antiseptic spray. Sterile gloves were donned. Sutures were cut and removed from the skin. Breathing exercises were explained to the patient. The patient was laid flat. Sterilegauze was placed over the insertion site and the entire intact catheter and cuff was removed without incident. Pressure was held at the site until hemostasis was achieved. Skin was cleansed of antiseptic with saline moistened gauze. Site was covered with a dry sterile dressing. Patient tolerated the procedure well. Everyone in the room wore a mask for the duration of the procedure. [facility] [id number] Nurse Note* Silva Rodriguez LPN - 08/24/2024 12:02 PM EDT CGM reading is 199 [facility] HospitalObtyte19-13-3529 Note* Care Coordination - Bebe Verdin RN - 08/24/2024 10:57 AM EDT Pt adm for tx/ eval of sepsis- transfer from [facility] ER. HD- MWF. IV zosyn/ vanc continued. Respiratory culture positive. BC positive. XR chest/ CT abd pelvis completed. Echo pending. Per nursing pt is vomiting today. GI/ID consulted. Anticipate discharge home. Possible intermediate manager abx. [facility] [id number] Note* Care Coordination - Bebe Verdin RN - 08/24/2024 10:57 AM EDT Pt adm for tx/ eval of sepsis- transfer from [facility] ER. HD- MWF. IV zosyn/ vanc continued. Respiratory culture positive. BC positive. XR chest/ CT abd pelvis completed. Echo pending. Per nursing pt is vomiting today. GI/ID consulted. Anticipate discharge home. Possible fci abx. T [facility] [id number] Consult note* Raeann Cowart, BLUEPRINT MAKER - ARM REST BUILDER - 08/24/2024 10:42 AM EDTAssociated Order(s): IP CONSULT TO GI Department of Internal Medicine Gastroenterology Attending Consult Note Reason for Consult: The patient was seen in consultation at the request of Dr. Hayde Barros re: 7.7 cmnew liver mass on CT imaging. CHIEF COMPLAINT: Fever body aches History Obtained From: Patient and EMR HISTORY OF PRESENT ILLNESS: The patient is a 44 y.o. male with significant past medical history of T1DM, ESRD, and HTN who presents as a transfer from [facility] ED with sepsis (T 103, BP 93/78. [...] Resource Strain: Low Risk (07/02/2022) Received from [facility] Overall Financial Resource Strain (CARDIA) Difficulty of Paying Living Expenses: Not hard at all Food Insecurity: No Food Insecurity (07/02/2022) Received from [facility] Hunger Vital Sign Worried About Running Out of Food in the Last Year: Never true Ran Out of Food in the Last Year: Never true Transportation Needs: No Transportation Needs (07/02/2022) Received from [facility] PRAPARE - Transportation Lack of Transportation (Medical): No Lack of Transportation (Non-Medical): No Physical Activity: Inactive (07/02/2022) Received from [facility] Exercise Vital Sign Days of Exercise per Week: 0 days Minutes of Exercise per Session: 0 min Stress: No Stress Concern Present (07/02/2022) Received from [facility] [place] [facility] [employer] [facility] - Occupational Stress Questionnaire Feeling of Stress : Not at all Social Connections: Socially Integrated (07/02/2022) Received from [facility] Social Connection and Isolation Panel [NHANES] Frequency of Communication with Friends and Family: More than three times a week Frequency of Social Gatherings with Friends and Family: More than three times a week Attends Hinduism Services: More than 4 times per year Active Member of Clubs or Organizations: Yes Attends Club or Organization Meetings: More than 4 times per year Marital Status: Living with partner Intimate Partner Violence: Not on file Housing Stability: Low Risk (07/02/2022) Received from [facility] Housing Stability Vital Sign Unable to Pay [...] few small scattered colonic diverticuli. Endoscopic Review [facility] Gastrointestinal Endoscopy Patient Name: Laurie Gonzales Procedure Date: 10/09/2011 7:00 AM Date of : 1980 Admit Type: Ambulatory Age: 31 Gender: Male Note Status: Finalized Procedure: Upper GI endoscopy Indications: Heartburn. Nausea with vomiting. Recently admitted to hospital in [facility] in June with severe DKA. [...] on HD M,W,F Plan: Patient transferred to [facility] from [facility] ED for sepsis and need for HD. [...] 50 mL IVPB, 1,000 mg, IntraVENous, q24h, MD Shawn dextrose 5 % infusion, 100 mL/hr, IntraVENous, [...] tablet 25 mg, 25 mg, Oral, Daily, DO Laure ondansetron ODT (Zofran-ODT) disintegrating tablet 4 mg, [...] 10 mg, Oral, q6h PRN OR prochlorperazine (Compazine)injection 10 mg, 10 mg, IntraVENous, q6h PRN, 10 mg at 08/24/24 0824 OR prochlorperazine (Compazine) suppository 25 mg, 25 mg, Rectal, q12h PRN, Palvir MD Arpit rosuvastatin (Crestor) tablet 20 mg, 20 mg, Oral, Nightly, Brayan Barros DO, 20 mg at 08/23/242007 [2] No family history on file. Cosigned by Juan Licona MD at 08/25/2024 3:06 PM EDT [employer] Work Phone: [phone]) 636-549605-27-2025 NoteNephrology Progress Note Following for ESRD mgt Pt [...] MWF HD - continue HD MWF at [facility] - Dr Diaz OP manager green - right TDC CDI Volume. - Bp [...] any questions or concerns Kim Blackwell APRN ARM REST BUILDER A-G DIAMOND EXPERT [facility] [phone] Pt seen and examined independently by me. I reviewed with REEMA-ARM REST BUILDER the medical history and the findings on physical examination. I discussed the patient?s diagnosis and concur with the treatment plan as documented in his note. Please call [phone] or message me through [employer] with any questions or concerns.[facility]05-27-2025 Consult note* Tracy Childs PA-C - 08/24/2024 9:46 AM EDTAssociated Order(s): IP CONSULT TO INFECTIOUS DISEASES Images from the original note were not included. [facility] - Infectious Diseases Advanced Practice Provider Consult Note Reason for Consult: MSSA bacteremia History of Present Illness: 44 yo male with PMHx significant for T1DM, ESRD via TDC, and HTN who presents 08/23 from [facility] ED with fever, hypotension, tachycardia concerning for [...] December. Denies any redness or swelling around catheteror any drainage. No other new exacerbating or alleviating factors. On presentation, patient afebrile, normotensive, on room air. Labs- WBC 20.3-> 10.7, lactic acid1.5, procal 5.94, BNP [address]. CXR negative. CT chest/abd/pelvis performed and without [...] Resource Strain: Low Risk (07/02/2022) Received from [facility] Overall Financial Resource Strain (CARDIA) Difficulty of Paying Living Expenses: Not hard at all Food Insecurity: No Food Insecurity (07/02/2022) Received from [facility] Hunger Vital Sign Worried About Running Out of Food in the Last Year: Never true Ran Out of Food in the Last Year: Never true Transportation Needs: No Transportation Needs (07/02/2022) Received from [facility] PRAPARE - Transportation Lack of Transportation (Medical): No Lack of Transportation (Non-Medical): No Physical Activity: Inactive (07/02/2022) Received from [facility] Exercise Vital Sign Days of Exercise per Week: 0 days Minutes of Exercise per Session: 0 min Stress: No Stress Concern Present (07/02/2022) Received from [facility] [place] [employer] - Occupational Stress Questionnaire Feeling of Stress : Not at all Social Connections: Socially Integrated (07/02/2022) Received from [facility] Social Connection and Isolation Panel [NHANES] Frequency of Communication with Friends and Family: More than three times a week Frequency of Social Gatherings with Friends and Family: More than three times a week Attends Hinduism Services: More than 4 times per year Active Member of Clubs or Organizations: Yes Attends Club or Organization Meetings: More than 4 times per year Marital Status: Living with partner Intimate Partner Violence: Not on file Housing Stability: Low Risk (07/02/2022) Received from [facility] Housing Stability Vital Sign Unable to Pay for Housing in the Last Year: No Number of Places Lived in the Last Year: 1 Unstable Housing in the Last Year: No Family History: Family History[5] Review of Systems: Review of Systems Constitutional: Negative for chills, fatigue and fever. HENT: Negative for congestion, ear pain, postnasal drip, rhinorrhea, sinus pressure, sinus pain andsore throat. Eyes: Negative for pain, discharge and [...] Patient with MSSA bacteremia- suspect 2/ TDC as no other known source at [...] accounting for open encounter. Tracy GEORGE PA-C [facility] Infectious Disease [1] Past Medical History: Diagnosis Date End stage renal failure on dialysis (HCC) Hypertension Type 1 diabetes mellitus (HCC) [2] History reviewed. No pertinent surgical history. [3] Current Facility-Administered Medications Medication Dose Route Frequency Provider Last Rate Last Admin acetaminophen (Tylenol) tablet 1,000 mg 1,000 mg Oral TID Brayan Barros DO 1,000 mg at 08/24/24 0929 [Held by provider] amLODIPine (Norvasc) tablet 10 mg 10 mg Oral Daily Brayan Barros DO ceFAZolin (Ancef) 1,000 mg in sodium chloride 0.9 % 50 mL IVPB 1,000 mg IntraVENous q24h Palamie Munson MD dextrose 5 % infusion 100 mL/hr IntraVENous PRN Brayan Luz Marina, DO dextrose 50 % solution 12.5 g 12.5 g IntraVENous PRN Brayan Luz Marina, DO glucagon (human recombinant) injection 1 mg 1 mg IntraMUSCular PRN Brayan Luz Marina, DO glucose oral gel 15 g 15 g Oral PRN Brayan Luz Marina, DO heparin injection 1,600 Units 1,600 Units IntraCATHeter PRN Osmel Q MD Lupe 1,600 Units at 08/23/24 2333 heparin injection 1,600 Units 1,600 Units IntraCATHeter PRN Osmel Q MD Lupe 1,600 Units at 08/23/24 2333 heparin injection 5,000 Units 5,000 Units SubCUTAneous 3 times per day Brayan Luz Marina, DO 5,000 Units at 08/24/24 0540 Insulin Pump - (Patient Supplied) SubCUTAneous Continuous Akbar Ahmet- Angela New Bag at 08/23/24 1358 Lidocaine 4 [...] mg 40 mg Oral qAM AC Brayan Luz Marina, DO 40 mg at 08/24/24 0540 polyethylene glycol (PEG) 3350 (Miralax) packet 17 g 17 g Oral Daily PRN Brayan Luz Marina, DO prochlorperazine (Compazine) tablet 10 mg 10 mg Oral q6h PRN Kwesi [facility] MD Or prochlorperazine (Compazine) injection 10 mg 10 mg IntraVENous q6h PRN Kwesi [facility] MD 10 mg at 08/24/24 0824 Or prochlorperazine (Compazine) suppository 25 mg 25 mg Rectal q12h PRN Kwesi [facility] MD rosuvastatin (Crestor) tablet 20 mg 20 mg Oral Nightly Brayan Luz Marina, DO 20 mg at 08/23/242007 [4] No Known Allergies [5] No family history on file. Cosigned by Lio Sue MD at 08/24/2024 3:43 PM EDT [facility]68[facility]61 Nurse Note* Silva Rodriguez LPN - 08/24/2024 8:09 AM EDT Patients CGM reading 207 [facility]Bncgrb30-56-3931 Nurse Note* Joanna Rolon RN - 08/23/2024 10:00 PM EDT Pt.'s insulin pump reading glucose 180 [facility] HospitalTneays29-51-5625 Nurse Note* Ross Jesus RN - 08/23/2024 9:11 PM EDT Patient Name: Farrah Gonzales Patient : 1980 Acct: [id number] Date of Admission: 08/23/2024 Room[facility]Bed: [facility] A Code Status: Full Code Allergies: Allergies[1] Diagnosis: Problem List[2] Treatment: Hemodialysis 1:1 Priority: Routine Location: Med/Surg/Tele Diabetic: Yes NPO: No Isolation Precautions: Droplet plus Consent for Treatment Verified: Yes Blood Consent Verified: Not Applicable ICEBOAT: Identify, Consent, Equipment, HepB Status, Orders Complete, Access Verified, Timeliness (O2 and suction setup at bedside) Second Clinician Verifying: Gonzales Thrsaher RN Time out performed prior to access [...] 4 Other (Comment) -- None (Room air) [place] Warm;Dry -- -- None None None None Incapacitated RN and Pt education done Medication (See MAR) 08/23/242357 Alert (0) 4 Other (Comment) Other (Comment) None (Room air) [place] Warm;Dry Soft ActiveNone None None None -- -- Labs Lab [...] - Before each treatment: Dialysis Machine No.: [id number] RO Machine Number: [id number] Dialyzer Lot No.: [id number] Tubing Lot Number: [id number] All Connections Secure: Yes Venous Parameters Set: Yes Arterial Parameters Set: Yes NS Bag: Yes Saline Line Double Clamped: Yes Dialyzer: Nipro Prime Volume (mL): 200 mL RO Machine Number: [id number] RO Machine Log Sheet Completed: Yes Machine Alarm Self Test: Completed, Passed (At 2015) (08/23/242015) Air Foam Detector: Tested, Proper Function, pH Reading Extracorporeal Circuit Tested for Integrity: Yes Machine Conductivity: 13.8 Manual Conductivity: 13.6 Manual Ph: 7.2 Bleach Test (Neg): Yes Bath Temperature: 36 C (96.8 F) Conductivity Meter Serial #: [id number] Machine Functioning Alarm Free? Yes Dialysis Bath: K+ (Potassium): 3 Ca+ (Calcium): 2.5 Na+ (Sodium): 137 HCO3 (Bicarb): 32 Bicarbonate Concentrate Lot No.: [id number] Acid Concentrate Lot No.: [id number] Chlorine Testing - Before each treatment and every 4 hours: Time On: 2024 Time Off: 2324 Treatment Goal: 1L Weight Height: 180.3 cm (5' 11) (08/23/241030) Weight: 88.5 kg (195 lb) (08/23/241030) BMI (Calculated): 27.21 (08/23/241030) 1st check: less than 0.1 ppm at: 2000 2nd check: less than 0.1 ppm at: 2240 3rd check: Not Applicable (if greater than [...] 60 600 Yes BFR increased, UF 57mL 08/23/24 2045 400 mL/min 570 ml/hr -160 mmHg 140 [...] -- (!) 136 -- -- -- -- 08/23/248 143/76 -- -- (!) 125 -- -- [...] and report given to Primary RN at 6725. Primary RN (First Initial, Last Name, Title): [...] infarction [3] Insulin Pump - (Patient Supplied), T [facility] [id number] Nurse Note* Mike Lopez RN - 08/23/2024 6:25 PM EDT Fistula to Lfa/wrist is warm to touch, secure messaging to primary T [facility] [id number] Nurse Note* Mike Lopez RN - 08/23/2024 5:55 PM EDT Blood sugar per patients omni pod 176 [facility] HospitalZfjfsm73-67-0381 Plan of care note* Care Plan - Mike Lopez RN - 08/23/2024 4:49 PM EDT Problem: Knowledge Deficit Goal: Patient/family/caregiver demonstrates understanding of disease process, treatment plan, medications, and discharge instructions 08/23/2024 1649 by Mike Lopez RN Outcome: Progressing 08/23/2024 1046 by Mike Lopez RN Outcome: Progressing Problem: Potential for Compromised Skin Integrity Goal: Skin Integrity is Maintained or Improved 08/23/2024 1649 by Mike Lopez RN Outcome: [...] 1046 by Mike Lopez RN Outcome: Progressing [facility] HospitalOgmrqs63-24-6960 Consult note* Osmel Andrade MD - 08/23/2024 2:37 PM EDT Associated Order(s): IP CONSULT TO NEPHROLOGY [facility] [address] [place] [address] Consult Note Patient's Name: Farrah [...] do not hesitate to contact me at [phone] with any concerns. Osmel Andrade MD 2:37 PM 08/23/2024 Chief Complaint: fever History Obtained From: patient and chart review History of Present Ilness: Farrah Gonzales is a 44 y.o. male with underlying history below who is currently being admitted to the hospital of workup for sepsis. Nephrology is consulted for management of end-stage renal disease Patient dialyzes at [facility] in [place] Friday. His last dialysis treatment was on [...] Oral PRN Brayan Barros, DO heparin injection 5,000 Units 5,000 Units SubCUTAneous 3 times per day Brayan Barros, DO 5,000 Units at 08/23/24 1410 Insulin Pump - (Patient Supplied) SubCUTAneous Continuous Akbar Ahmet- Angela New Bag at 08/23/24 1358 [Held by [...] mg 40 mg Oral qAM AC Brayan Luz Marina, DO piperacillin-tazobactam (Zosyn) 2,250 mg in sodium chloride 0.9 % 50 mL IVPB Mini-Bag Plus 2,250 mgIntraVENous q6h Brayan Luz Marina, DO 16.67 mL/hr [...] (placeholder) Other RX Placeholder Brayan Barros DO [employer] Phone: 1(192) 565-913105-26-2025 Consult note* Marlene Waller, PharmD - 08/23/2024 1:55 PM EDT Images from the original note were not [...] [] CrCl ml/min (Cockcroft-Gault, if ANN, no FRAME POLISHER) Consulted By: Brayan Barros Vancomycin Level: []Trough [...] 1:53 PM Marlene Waller PharmD (available on [employer]) [facility] HospitalYutpar12-39-6523 Consult note* Akbar Brown - 08/23/2024 12:49 PM EDTAssociated Order(s): IP CONSULT TO ENDOCRINOLOGY Department of Internal Medicine Division of Endocrinology, Diabetes, & Metabolism Endocrinology Note Patient Name: Farrah Gonzales : 1980 AGE: 44 y.o. Room/Bed: [facility]/[address] Admission Date: 08/23/2024 Visit Date: 08/23/2024 Reason for Endocrine Consult: Type 1 diabetes mellitus on insulin pump. Provider/Team Requesting Consult: Brayan Barros PCP: Kristal Sullivan MD Outpt Foreign Policy Officer: Yes . Jace Ko MD at outside [...] insulin pump. Outpt Follow Up-- With outside stave grader. SUBJECTIVE/HPI: CHIEF COMPLAINT: No chief complaint on file. Farrah is a 44-year-old white male who was admitted with sepsis, to determine etiology. He has a history of type 1 diabetes mellitus since age 18. He has been on an OmniPod for the last 3 years, with a [employer] G6 CGM. He uses auto mode on [...] results, and Other Clinical Notes at the timeof today's encounter. Labs: No components found for: LABA1C No components found for: EAG No results found for: NA, K, CL, CO2, BUN, CREATININE, GLUCOSE, CALCIUM No results found for: CHLPL, CHOL No results found for: TRIG No results found for: HDL No results found for: LDLCALC No results found for: VLDL No results found for: CHOLHDLRATIO No results found for: DFFI56NTY No results found for: TSH, V6AIQNS, V1KUWHJ, THYROIDAB Radiology reportsas per the Radiologist Radiology: [...] Topics Alcohol use: Never Drug use: Never [facility] HospitalCpavnf82-43-4874 History and physical note* Any Hernández MD - 08/23/2024 11:20 AM EDT Internal Medicine: Med Team Initial History and Physical Farrah Gonzales : 1980(44 y.o.) Date: August 23, 2024 TEAM: D Attending: Dr. Trujillo Subjective: Chief Complaint: Fever/Body Aches MILADYS Gonzales is a 44 y.o. male with PMH of T1DM, ESRD, HTN that presented to [facility] on 08/23/2024 from [facility] ED for diagnosis of Sepsis. In the ED, patient was found to be febrile (103), hypotensive (93/78) and tachycardic (135). Labs significant for leukocytosis 26,000, hgb 11.9, lactic 2.5, creatinine 8.87 and potassium 3.6. Urine clear and chest x-ray negative. Patient met criteria for sepsis and was subsequently treated with 1 Lof fluids, Vanc and Zosyn and blood cultures were collected. Med team consulted for further workup of sepsis. On bedside evaluation, patient's vitals are now BP 156/82, R:20, P:108 satting 100 on RA. Patient reported that his symptoms started 1.5 days ago in the evening after completing his dialysis session.He noted that took his temperature after he felt feverish which prompted them to go to the ED.Patient endorses nausea, vomiting, body aches, and chest [...] input(s): AST, ALT, PROT, ALBUMIN, BILITOT, BILIRUBINU, ALKPHOS,LIPASE in the last 72 hours. Glucose: No results for input(s): GLUCOSE, POCGLU, BHYDRXBUT in the last 72 hours. Procal: No results for input(s): PROCAL in the last 72 hours. CBC: No results for input(s): WBC, HGB, HCT, PLT, MCV, RDW in the last 72 hours. ABGs: No results for input(s): PHART, XWY3ODY, PO2ART, YIE9ZET, SO2ART, S3PDBQTR in thelast 72 hours. Lactic Acid: No results for [...] for Cauda Equina Syndrome, Pyelonephritis, or Compartment Syndrome.Likely due to symptoms of fever from unknown [...] in clusters -Drug Screen Neg -ESR, CRP, Pro-Reggie elevated -UA showed protein and glucose in [...] primary diagnosis in the setting of his comorbidconditions, he is expected to require >48 hrs [...] tunneled HD line, HTN, sp AVF creation, KS sp PCI to LAD Mar 2024? (On ASA alone?) who was transferred from [facility] ED with sepsis. Overnight found with MSSA [...] monitoring serum creatinine 7AM-5PM: contact resident on [facility] Med D (find by hovering over attending's name on left side of patient's chart) 5PM-7AM: contact [address]05-26-2025 Note Attestation with edits by Maria Luz [...] tunneled HD line, HTN, sp AVF creation, KS sp PCI to LAD Mar 2024? (On ASA alone?) who was transferred from [facility] ED with sepsis. Overnight found with MSSA [...] monitoring serum creatinine 7AM-5PM: contact resident on [employer] Med D (find by hovering over attending's name on left side of patient's chart) 5PM-7AM: contact AI3 res Internal Medicine: Med Team Initial History and Physical Farrah FERRERA: 1980(44 y.o.) Date: August 23, 2024 TEAM: Jamarcus Attending: Dr. Trujillo Subjective: Chief Complaint: Fever/Body Aches HPI Farrah Gonzales is a 44 y.o. male with PMH of T1DM, ESRD, HTN that presented to [facility] on 08/23/2024 from [facility] ED for diagnosis of Sepsis. In the [...] PROT, ALBUMIN, BILITOT, BILIRUBINU, (more content not included)...[facility]05-26-2025 History and physical note* Any Hernández MD - 08/23/2024 11:20 AM EDT Internal Medicine: Med Team Initial History and Physical Farrah Gonzales : 1980(44 y.o.) Date: August 23, 2024 TEAM: D Attending: Dr. Trujillo Subjective: Chief Complaint: Fever/Body Aches HPI Farrah Gonzales is a 44 y.o. male with PMH of T1DM, ESRD, HTN that presented to [facility] on 08/23/2024 from [facility] ED for diagnosis of Sepsis. In the ED, patient was found to be febrile (103), hypotensive (93/78) and tachycardic (135). Labs significant for leukocytosis 26,000, hgb 11.9, lactic 2.5, creatinine 8.87 and potassium 3.6. Urine clear and chest x-ray negative. Patient met criteria for sepsis and was subsequently treated with 1 Lof fluids, Vanc and Zosyn and blood cultures were collected. Med team consulted for further workup of sepsis. On bedside evaluation, patient's vitals are now BP 156/82, R:20, P:108 satting 100 on RA. Patient reported that his symptoms started 1.5 days ago in the evening after completing his dialysis session.He noted that took his temperature after he felt feverish which prompted them to go to the ED.Patient endorses nausea, vomiting, body aches, and chest [...] input(s): AST, ALT, PROT, ALBUMIN, BILITOT, BILIRUBINU, ALKPHOS,LIPASE in the last 72 hours. Glucose: No results for input(s): GLUCOSE, POCGLU, BHYDRXBUT in the last 72 hours. Procal: No results for input(s): PROCAL in the last 72 hours. CBC: No results for input(s): WBC, HGB, HCT, PLT, MCV, RDW in the last 72 hours. ABGs: No results for input(s): PHART, XQN8CXQ, PO2ART, MLD7MZG, SO2ART, K2GDQKVE in thelast 72 hours. Lactic Acid: No results for [...] for Cauda Equina Syndrome, Pyelonephritis, or Compartment Syndrome.Likely due to symptoms of fever from unknown [...] in clusters -Drug Screen Neg -ESR, CRP, Pro-Reggie elevated -UA showed protein and glucose in [...] primary diagnosis in the setting of his comorbidconditions, he is expected to require >48 hrs [...] tunneled HD line, HTN, sp AVF creation, KS sp PCI to LAD Mar 2024? (On ASA alone?) who was transferred from [facility] ED with sepsis. Overnight found with MSSA [...] monitoring serum creatinine 7AM-5PM: contact resident on [facility] Med D (find by hovering over attending's name on left side of patient's chart) 5PM-7AM: contact AI3 res documented in this [facility]05-26-2025 Plan of care note* Care Plan - Mike Lopez RN - 08/23/2024 10:45 AM EDT Problem: Knowledge Deficit Goal: Patient/family/caregiver demonstrates understanding [...] monitored and maintained or improved Outcome: Progressing [facility] HospitalEzdwcm05-20-4041 Discharge summary [facility] Medical Records Department [address] [place] [id number] Emergency Department Summary 08/23/24 MR#: [id number] Acct: [id number] Name: LAURIE GONZAELS Rep #:[id number] : 1980 44 From: Laurie Thrasher PCP: [...] type 1 diabetes as well as end-stage renaldisease on dialysis. Patient denies any diarrhea. No significant cough. Family notes he has been having some mild rhinorrhea. No sore throat. No rashes. He states he generally feels weak all over. Hewas able to walk back from the bathroom and easily flops onto the bed without pain. [facility] Medical History Elevated troponin Insulin dependent diabetes [...] kit #100 ea 11/26/21 Unkno wn Rx ([employer]Touch Delica Plus Lancing Device kit) pen needle, [...] x #50 ea 03/30/24 Unknow n Rx /32 (BD Ultra-Fine Carol Pen Needle) blood-glucose,environmental department manager,cont #1 ea 04/01/24 Unknown Rx (Dexcom G6 Salesperson Books) insulin pump cart,auto,BT,G6/7 #30 ea 04/01/24 Unknown [...] received a liter of IV fluids as wellas Tylenol. Additional fluids will need to be very judicious given the fact that he is a dialysis patient and concern for fluid overload. His lactic acid is noted to be elevated at 2.5. Vancomycin and Zosyn were ordered. I am told by nursing drapery supervisor that we do not have dialysis coverage on Friday. He is due for dialysis tomorrow. He will need to be transferred. Family would like me to try [facility] as they work in [place] and would be easier for them. Unfortunately they do not have any bed availability. I spoke with the patient and his family regarding other options that [facility] gave me including [facility] versus pia. Theywould like me to try [facility]. I spoke with [facility] and the patient has been accepted. [...] 93.6 H Lymph % (Auto) 1.4 L Ballard % (Auto) 3.2 Eos % (Auto) 0.0 [...] Clarity Clear Urine pH 7.0 Ur Specific [place] 1.010 Urine Protein 500 H Urine Glucose [...] No evidence of acute disease. Reading Location: [facility] EKG Initial EKG: Attestation: I personally reviewed and interpreted this EKG as follows: Comments: Sinus tachycardia ventricular rate of 126 bpm Management Discussion w/another healthcare provider: Photolithographic Stripper (Dr Mejia ([facility])) Discharge Plan Triage Chief Complaint: Fever Other Complaint: Nausea/Vomiting ED Provider: Laurie Elizalde Dx/Rx/DC Orders Clinical Impression: DM type 1 (diabetes mellitus, type 1), ESRD (end stage renal disease) on dialysis, Fever of unknownorigin (FUO), Sepsis Prescriptions: No Action (DME) FreeStyle [...] (Reason: nausea/vomiting) (DME) lancing device with lancets [[employer] Delica Plus Lanc Dev] Kit See Rx [...] 1RF Rx Instructions: tid (DME) Dexcom G6 Salesperson Books Misc See Rx Instructions .Route Qty: 1 [...] MD [Primary Care Provider] - Print Language: Cuban Disposition Disposition: Acute Care Hospital Discharge Location: [facility] What to do if you have Problems For any increased pain, shortness of breath, bleeding, nausea or vomiting, chestpain, or any unexpected problems, contact your Primary Care Provider. Call [facility] ([phone]) or report tothe closest Emergency Room. Call 911 if necessary. 08/23/24 0818 Cosigner Signature (if applicable): CC: Dr. Kristal Sullivan MD ~ Signed [facility]05-26-2025 Radiology Diagnostic study note [facility] Imaging Services [address] [place], [place] [id number] Chest 1 View (Portable) MR#: [id number] Acct: [id number] Name: LAURIE GONZALES Rep #: [id number] : 1980 M 44 From: Herminio Allison MD PCP: Dr. Kristal Sullivan MD Status: REG E R Study:Chest 1 View (Portable) Date of Exam: 08/23/24 Exam# [id number] Ordering Dr: Jamarcus Elizalde DO PROCEDURE: CHEST 1 VIEW (PORTABLE) 08/23/2024 REASON FOR EXAM: FEVER TECHNIQUE: Frontal view of the chest. AP portable COMPARISON: 08/10/2024 FINDINGS: Right-sided dialysis catheter. The lungs appear clear. Pulmonary vascularity appears within limits.No evidence of pleural effusion. The cardiac and mediastinal contours appear within limits. Visualized osseous structures appear within limits. RAD/Chest 1 View (Portable) IMPRESSION: No evidence of acute disease. Reading Location: [id number] CC: Dr. Kristal Sullivan MD; Dr. Laurie Elizalde DO ~ Shuttle Van Driver: Signed [facility]05-20-2025 Progress [facility] Gastroenterology [address] [facility] [place] [address] OFFICE VISIT Date of Service: 08/17/24 MR#: [id number] Acct: [id number] Name: LAURIE GONZALES Rep #: [id number] : 1980 Provider: RAVINDER Payne Age/Sex: 44/M [facility] Status: Signed Intake Vital Signs 08/11/24 14:02 08/17/24 14:47 Height 5 ft 11 in 5 ft 11 in Weight: 191 lb 2 oz BMI 26.6 BP 123/88 H Respiration 18 Pulse 98 Pulse Oximetry (%) 98 Oxygen Delivery Method room air Intake Visit Reasons: SWALLOWED FOOD GETS STUCK Chief Complaint: pain with swallowing Charge Account Identification Clerk Required: No Accompanied by: Self Is patient in pain?: No Allergies No Known Allergies Allergy (Verified 08/17/24 14:42) Medications ?Medication ?Instructions ?Recorded ?Confirmed ?Type blood sugar diagnostic (FreeStyle #100 ea 10/08/2111/22 Rx Lite Strips) lancing device with lancets kit #100 ea 11/26/2108/05 Rx (OneTouch Delica Plus Lancing Device kit) pen needle, diabetic 32 gauge x #150 ea 02/26/2208/05 Rx (BD Ultra-Fine Carol Pen Needle) aspirin [...] insulin syringe-needle U-100 0.3 #100 ea 03/30/24 0511/22 Rx mL 31 gauge x 5/16 (BD Insulin Syringe Ultra-Fine) pen needle, diabetic 32 gauge x #50 ea 03/30/24 Rx 5/32 (BD Ultra-Fine Carol Pen Needle) blood-glucose,environmental department manager,cont #1 ea 04/01/24 08/11/24 Rx (Dexcom G6 Salesperson Books) insulin pump cart,auto,BT,G6/7 #30 ea 04/01/24 5 Rx (Omnipod 5 G6-G7 Pods (Gen 5) subcutaneous cartridge) sevelamer carbonate 800 mg tablet 800 mg PO DAILY 05/3008/17/24 History blood-glucose sensor (Dexcom G6 #9 ea 07/23/24 5 Rx Sensor device) blood-glucose transmitter (Dexcom #1 ea 07/23/2408/05 Rx G6 Transmitter device) cholecalciferol (vitamin D3) 50 150 mcg PO MOWEFR /08/17/24 History mcg (2,000 unit) capsule loratadine 5 mg-pseudoephedrine ER 1 tab PO Q12H 08/0508/17/24 History 120 mg tablet,extended release,12hr (Claritin-D 12 Hour) amlodipine 5 mg tablet 10 mg (2 x 5 mg) PO DAILY #9 0 tabs 08/11/24 08/17/24 Rx pantoprazole 40 mg tablet,delayed 40 mg PO QDAY #90 ta bs 05/20/25 05/20/25 Rx release sucralfate 100 mg/mL oral 10 ml PO QACHS #1,200 mL 08/17/24 Rx suspension (Carafate) Nurse's Note: When he swallows food it feels like food gets stuck in his mid to lower esophagus and the pain radiates from the chest to the back. [facility] Medical History Elevated troponin Insulin [...] oriented x3 Other: Right chest HD cath HENHI Head: normocephalic Ears: hearing grossly normal bilaterally [...] sudden onset dysphagia and odynophagia in the uppermid esophagus with liquids and solids. He reports a 10 to 20 pound weight loss in the past week, and is running even ondialysis. I have started him on a daily PPI and sucralfate. I have also ordered an esophagram and EGD. He will follow-up in the office post procedures. He takes Plavix and will require approval to hold prior to EGD. Note: [employer] speech recognition associate professor of philosophy software was used to create portions of this document. Sound-alike and misspelled words, as well as other associate professor of philosophy errors may be contained in the documentation. Patient Instructions: Esophagram EGD Coding Level of Care Code Off vis,new,level 4 Diagnoses Dysphagia R13.10 Odynophagia R13.10 Clinical Quality Measures Smoking Screening Smoking Status: Never smoker 08/17/24 1522 jacqueline DIAMOND EXPERT-C> Date _ Kalina Payne DIAMOND EXPERTJosé MiguelC Cosigner Signature: Date (if applicable) CC: ~ [facility]05-20-2025 Progress note Author Kalina Payne [facility] Note Date/Time August 17, 2024 3:22p nelson [facility] G[facility] [address] [place] [address] OFFICE VISIT Date of Service: 08/17/24 MR#: [id number] Acct: [id number] Name: LAURIE GONZALES Rep #: [id number] : 1980 Provider: RAVINDER Payne Age/Sex: 44/M [place] [facility] Status: Signed Intake Vital Signs 08/11/24 14:02 08/17/24 14:47 Height 5 ft 11 in 5 ft 11 in Weight: 191 lb 2 oz BMI 26.6 BP 123/88 H Respiration 18 Pulse 98 Pulse Oximetry (%) 98 Oxygen Delivery Method room air Intake Visit Reasons: SWALLOWED FOOD GETS STUCK Chief Complaint: pain with swallowing Charge Account Identification Clerk Required: No Accompanied by: Self Is patient in pain?: No Allergies No Known Allergies Allergy (Verified 08/17/24 14:42) Medications ?Medication ?Instructions ?Recorded ?Confirmed ?Type blood sugar diagnostic (FreeStyle #100 ea 10/08/2111/22 Rx Lite Strips) lancing device with lancets kit #100 ea 11/26/2108/05 Rx ([employer] Delica Plus Lancing Device kit) pen needle, [...] 32 gauge x #50 ea 03/30/24 Rx /32 (BD Ultra-Fine Carol Pen Needle) blood-glucose,environmental department manager,cont #1 ea 04/01/24 08/11/24 Rx (Dexcom G6 [employer]person Books) insulin pump cart,auto,BT,G6/7 #30 ea 04/01/24 5 [...] radiates from the chest to the back. [facility] Medical History Elevated troponin Insulin [...] oriented x3 Other: Right chest HD cath HENMT Head: normocephalic Ears: hearing grossly normal [...] approval to hold prior to EGD. Note: [employer] speech recognition associate professor of philosophy software was used to create portions of this document. Sound-alike and misspelled words, as well as other associate professor of philosophy errors may be contained in the documentation. Patient Instructions: Esophagram EGD Coding Level of Care Code Off vis,new,level 4 Diagnoses Dysphagia R13.10 Odynophagia R13.10 Clinical Quality Measures Smoking Screening Smoking Status: Never smoker 08/17/24 1522 <Electronically signed by Kalina CASTELLON> Date _ Kalina CASTELLON Cosigner Signature: Date (if applicable) CC: ~ [facility] Work Phone: 1(243) 432-999005-14-2025 Discharge summary Author Louischuy Koehler [facility] Note Date/Time August 11, 2024 2:35p [facility] Medical Records Department [address] [place] [address] Instructions for Home/Discharge Instructions 08/11/24 1429 MR#: [id number] Acct: [id number] Name: LAURIE GONZALES Rep #:[id number] : 1980 44 From: Louis Ricketts PCP: [...] 1RF Rx Instructions: tid (DME) Dexcom G6 [employer]person Books Misc See Rx Instructions .Route Qty: 1 [...] can be placed): Home, Self Care 08/11/24 1435<Electronically signed by Louis Koehler MD>Louis Koehler MD CC: Dr. Kristal Sullivan MD; Dr. Daisy Diaz MD; Dr. Eugenia London, DO ~ Signed [facility] Work Phone: 1(473) 225-392005-14-[address] [facility] Medical Records Department [address] [place] [address] Counseling Note - Pharmacy 08/11/24 1516 MR#: [id number] Acct: [id number] Name: LAURIE GONZALES Rep #:[id number] : 1980 44 From: Ira Singh PCP: Dr. Kristal Sullivan MD Status:ADM I NO Y Location: [place] [address] Pharmacy ID Med Reconciliation Pharmacy Service has performed discharge medication reconciliation for this patient. The patient's discharge medication list was reviewed for discrepancies and discrepancies were resolved. Medications at Discharge Home Medications blood sugar diagnostic (FreeStyle Lite Strips) #100 ea 10/08/21 lancing device with lancets kit ([employer] Delica Plus Lancing Device kit) #100 ea [...] #50 ea 03/30/24 blood-glucose meter,continuous (Dexcom G6 [employer]person [employer]) #1 ea 04/01/24 insulin pump cart,auto,BT,G6/7 (Omnipod [...] Signature (if applicable): Date CC: ~ Signed [facility]05-14-2025 Discharge summary [facility] Medical Records Department [address] [place] [address] Discharge Summary 08/11/24 1440 MR#: [id number] Acct: [id number] Name: LAURIE GONZALES Rep #:[id number] : 1980 44 From: Louis Ricketts PCP: Dr. Kristal Sullivan MD Status:ADM I NO Location: [place] [address] Providers Date of Admission: 08/10/24 Date of [...] front sharpin nature along with nausea. Last KS in December2023 that required stent in LAD. By the time patient came to ED chest pain had subsided. Denies family history of KS at young age 3. ACS ruled out. [...] bifascicular block, RBBB and LAFB. ED physiciandiscussedwith box car bracer Dr. Lio Cross and he reviewed his previous cardiac cath in December 2023 which showed small vessel disease not amenable to intervention. Pharmacological stress test was done which she reported preservedEF, previous anterior infarct with mild ede-infarct infix ischemia. Discussed with the box car bracer Dr. Garcia who reported that stress and he said patient cango home. No acute KS. Patient is being discharged. 2. Essential hypertension: [...] On Friday. Patient is being dialyzed today. User Experience Researcher consulted. On sevelamer 5. History of chronic [...] ea 10/08/21 lancing device with lancets kit ([employer] Plus Lancing Device kit) #100 ea 11/26/21 [...] #50 ea 03/30/24 blood-glucose meter,continuous (Dexcom G6 [employer]person Books) #1 ea 04/01/24 insulin pump cart,auto,BT,G6/7 (Omnipod [...] had 1 stent in LAD during last KS in December 2023 Physical exam: General: Alert, [...] (Auto) 77.5 H, Lymph % (Auto) 12.1L, Ballard % (Auto) 8.3, Eos % (Auto) 1.0, [...] (Auto) 75.1 H, Lymph % (Auto) 13.4L, Ballard % (Auto) 9.6, Eos % (Auto) 0.8, [...] IMPRESSION: No acute cardiopulmonary abnormality. Reading Location: [id number] Chest CTA 08/10/24 21:35 IMPRESSION: No evidence of pulmonary embolism or acute findings in the thorax. 6.5 x 4.7 cm right hepatic lobe mass. Differential considerations include a hemangioma. Recommend further evaluation with CT or MRI liver protocol. Reading Location: [facility] D/C Instructions Discharge Diet: Low fat [...] PO Q12H (DME) lancing device with lancets [[employer]Touch Delica Plus Lanc Dev] Kit See Rx [...] 1RF Rx Instructions: tid (DME) Dexcom G6 [employer]person Books Misc See Rx Instructions .Route Qty: 1 [...] Qty: 90 3RF Referrals / Follow Up: Naila Riley [Emergency Nurse] - Kristal Sullivan MD [Primary Care Provider] - Daisy Diaz MD [Med Staff - Consulting] - Within 1 Month Disposition Disposition (needs filled in before D/C Order can be placed): Home, Self Care Charges/Coding Visit Charges Inpatient E&M: 46622 Disch Hosp >30min 08/11/24 1452 Cosigner Signature (if applicable): CC: Dr. Kristal Sullivan MD; Dr. Daisy Diaz MD; Dr. Louis Koehler MD~ Signed [facility]05-14-20[facility] Discharge summary [facility] Medical Records Department [address] [place] [address] Instructions for Home/Discharge Instructions 08/11/24 1429 MR#: [id number] Acct: [id number] Name: LAURIE GONZALES Rep #:[id number] : 1980 44 From: Louis Ricketts PCP: [...] 1RF Rx Instructions: tid (DME) Dexcom G6 [employer] Misc See Rx Instructions .Route Qty: 1 [...] MD; Dr. Eugenia London DO ~ Signed [facility]05-14-2025 History and physical note Author Eugenia London [facility] Note Date/Time August 11, 2024 1:21a m [facility] Medical Records Department [address] [place] [address] H&P Exam - Hospitalist 08/10/24 7559 MR#: [id number] Acct: [id number] Name: LAURIE GONZALES Rep #:[id number] : 1980 44 From: Eugenia London DO PCP: Dr. Kristal Sullivan MD Status:ADM I NO Location: [facility] [id number] HPI - General General Date of Admission: 08/10/24 Date of Service: 08/10/24 Chief Complaint: Chest pain HPI Narrative LAURIE GONZALES, is a 44 M who presented to the emergency department at [facility] on 08/10/2024 with a chief complaint [...] CT or MRI liver protocol was recommended. [facility] Medical History Insulin dependent diabetes [...] #1 ea 04/01/24 Unknown Rx (Dexcom G6 [employer]) insulin pump cart,auto,BT,G6/7 #30 ea 04/01/24 Unknown [...] (Auto) 77.5 H, Lymph % (Auto) 12.1L, Ballard % (Auto) 8.3, Eos % (Auto) 1.0, [...] IMPRESSION: No acute cardiopulmonary abnormality. Reading Location: [id number] Chest CTA 08/10/24 21:35 IMPRESSION: No evidence of pulmonary embolism or acute findings in the thorax. 6.5 x 4.7 cm right hepatic lobe mass. Differential considerations include a hemangioma. Recommend further evaluation with CT or MRI liver protocol. Reading Location: [facility] Assessment & Plan Assessment/Plan (1) [...] Full code Charges/Coding Visit Charges Inpatient E&M: 97471 Init Hosp L2 08/11/24 0121 <Electronically signed by Eugenia London DO> Cosigner Signature (if applicable): CC: Dr. Kristal Sullivan MD; Dr. Eugenia London DO~ Signed [facility] Work Phone: 1(609) 863-366105-14-2025 Discharge summary Author Jace Yanes [facility] Note Date/Time August 10, 2024 11:53 pm [facility] Medical Records Department [address] [place] [address] Emergency Department Summary 08/10/24 MR#: [id number] Acct: [id number] Name: LAURIE GONZALES Rep #:[id number] : 1980 44 From: Jace Rios PCP: [...] Prior Similar Symptoms: Yes and With Prior KS CVD Risk Factors: Positive for Hypertension, Diabetes and Hypercholesterolemia; Negative for Family History 1' </=55 or Smoking PE Risk Factors: Negative for Recent Travel/Surgery, Recent Immobilization or Prior DVT or PE PFSH [facility] Medical History Insulin dependent diabetes [...] kit #100 ea 11/26/21 Unkno wn Rx ([employer] Delica Plus Lancing Device kit) pen needle, [...] Rx insulin syringe-needle U-100 0.3 #100 ea 12/31/24 Unkn own Rx mL 31 gauge x 5/16 (BD Insulin Syringe Ultra-Fine) pen needle, diabetic 32 gauge x #50 ea 03/30/24 Unknow n Rx 5/32 (BD Ultra-Fine Carol Pen Needle) blood-glucose meter,continuous #1 ea 04/01/24 Unknown Rx (Dexcom G6 [employer]) insulin pump cart,auto,BT,G6/7 #30 ea 04/01/24 Unknown [...] of the culprit lesion for non-ST elevation KS which is a diffuse left anterior descending [...] dissection rule out prior to starting heparin. 2250: CT angiogram negative for dissection however notes right hepatic lobe massof 6.5 cm with more likely consideration of hemangioma. Currently symptom-free. I spoke with on-call box car bracer Dr. Cross discussed his history his cath [...] Cardiology, hospitalist This note was generated with [employer] dictation software. It may contain incorrectwords, spelling, [...] 77.5 H Lymph % (Auto) 12.1 L Ballard % (Auto) 8.3 Eos % (Auto) 1.0 [...] IMPRESSION: No acute cardiopulmonary abnormality. Reading Location: [id number] Chest CTA 08/10/24 21:35 IMPRESSION: No evidence of pulmonary embolism or acute findings in the thorax. 6.5 x 4.7 cm right hepatic lobe mass. Differential considerations include a hemangioma. Recommend further evaluation with CT or MRI liver protocol. Reading Location[facility] Discharge Plan Triage Chief Complaint: Chest Pain [...] PO Q12H (DME) lancing device with lancets [[employer]Touch Delica Plus Lanc Dev] Kit See Rx [...] 1RF Rx Instructions: tid (DME) Dexcom G6 [employer]person Books Misc See Rx Instructions .Route Qty: 1 [...] MD [Primary Care Provider] - Print Language: Cuban What to do if you have Problems For any increased pain, shortness of breath, bleeding, nausea or vomiting, chestpain, or any unexpected problems, contact your Primary Care Provider. Call [facility] ([phone]) or report to the closest Emergency Room. Call 911 if necessary. 08/10/24 9527 <Electronically signed by Jace Rios> Cosigner Signature (if applicable): CC: Dr. Kristal Sullivan MD ~ Signed [facility] Work Phone: 1(190) 305-524005-14-2025 History and physical note [facility] Medical Records Department [address] [place] [address] H&P Exam - Hospitalist 08/10/24 0857 MR#: [id number] Acct: [id number] Name: LAURIE GONZALES Rep #:[id number] : 1980 44 From: Eugenia London DO PCP: Dr. Kristal Sullivan MD Status:ADM I NO Location: [place] [address] HPI - General General Date of Admission: 08/10/24 Date of Service: 08/10/24 Chief Complaint: Chest pain HPI Narrative LAURIE GONZALES, is a 44 M who presented to the emergency department at [facility] on 08/10/2024 with a chief complaint of chest pain. Patient has a complex past medical history including type 1 diabetes on an insulin pump and end-stage renal disease on HD. Patient was at dialysis andcompleted dialysis, however, after dialysis he experienced chest pain. He states he started actually with some nausea and vomiting and had resultant chest pain. Jhonatans have a history of coronary artery disease [...] CT or MRI liver protocol was recommended. [facility] Medical History Insulin dependent diabetes [...] kit #100 ea 11/26/21 Unkno wn Rx ([employer] Delica Plus Lancing Device kit) pen needle, [...] #1 ea 04/01/24 Unknown Rx (Dexcom G6 [employer] Books) insulin pump cart,auto,BT,G6/7 #30 ea 04/01/24 Unknown [...] (Auto) 77.5 H, Lymph % (Auto) 12.1L, Ballard % (Auto) 8.3, Eos % (Auto) 1.0, [...] IMPRESSION: No acute cardiopulmonary abnormality. Reading Location: [id number] Chest CTA 08/10/24 21:35 IMPRESSION: No evidence of pulmonary embolism or acute findings in the thorax. 6.5 x 4.7 cm right hepatic lobe mass. Differential considerations include a hemangioma. Recommend further evaluation with CT or MRI liver protocol. Reading Location: [facility] Assessment & Plan Assessment/Plan (1) Chest pain: [...] Full code Charges/Coding Visit Charges Inpatient E&M: 47949 Init Hosp L2 08/11/24 0121 Cosigner Signature (if applicable): CC: Dr. Kristal Sullivan MD; Dr. Eugenia London DO~ Signed [facility]05-13-2025 Discharge summary [facility] Medical Records Department [address] [place] [address] Emergency Department Summary 08/10/24 MR#: [id number] Acct: [id number] Name: LAURIE GONZALES Rep #:[id number] : 1980 44 From: Jace Rios PCP: [...] Prior Similar Symptoms: Yes and With Prior KS CVD Risk Factors: Positive for Hypertension, Diabetes and Hypercholesterolemia; Negative for FamilyHistory 1' PE Risk Factors: Negative for Recent Travel/Surgery, Recent Immobilization or Prior DVT or PE [facility] Medical History Insulin dependent diabetes mellitus Diabetes [...] kit #100 ea 11/26/21 Unkno wn Rx ([employer]Touch Delica Plus Lancing Device kit) pen needle, [...] #1 ea 04/01/24 Unknown Rx (Dexcom G6 [employer]) insulin pump cart,auto,BT,G6/7 #30 ea 04/01/24 Unknown [...] of the culprit lesion for non-ST elevation KS which is a diffuse left anterior descending [...] cardiology involvement for the catheterization. Since y esterday reporting pain in his back and sharp [...] Currently symptom- free. I spoke with on-call box car bracer Dr. Cross discussed his history his cath [...] Cardiology, hospitalist This note was generated with [employer] dictation software. It may contain incorrectwords, spelling, [...] 77.5 H Lymph % (Auto) 12.1 L Ballard % (Auto) 8.3 Eos % (Auto) 1.0 [...] IMPRESSION: No acute cardiopulmonary abnormality. Reading Location: [id number] Chest CTA 08/10/24 21:35 IMPRESSION: No evidence of pulmonary embolism or acute findings in the thorax. 6.5 x 4.7 cm right hepatic lobe mass. Differential considerations include a hemangioma. Recommend further evaluation with CT or MRI liver protocol. Reading Location: [facility] Discharge Plan Triage Chief Complaint: Chest Pain [...] 1RF Rx Instructions: tid (DME) Dexcom G6 [employer] Misc See Rx Instructions .Route Qty: 1 [...] MD [Primary Care Provider] - Print Language: Cuban What to do if you have Problems For any increased pain, shortness of breath, bleeding, nausea or vomiting, chestpain, or any unexpected problems, contact your Primary Care Provider. Call [facility] ([phone]) or report tothe closest Emergency Room. Call 911 if necessary. 08/10/24 4674 Cosigner Signature (if applicable): CC: Dr. Kristal Sullivan MD ~ Signed [facility]05-13-2025 Radiology Diagnostic study note [facility] Imaging Services [address] [place], [place] [address] CTA Chest W/WO Contrast MR#: [id number] Acct: [id number] Name: CHRISTIANLAURIE Rep #: [id number] : 1980 M 44 From: Eboni Becerra MD PCP: Dr. Kristal Sullivan MD Status: REG E R Study:CTA Chest W/WO Contrast Date of Exam: 08/10/24 Exam# [id number] Ordering Dr: Jace Yanes DO PROCEDURE: CTA [...] MRI liver protocol. Reading Location: [facility] CC: Dr. Kristal Sullivan MD; Dr. Jace Yanes DO ~ Shuttle Van Driver: Signed [facility]05-13-2025 Radiology Diagnostic study note [facility] Imaging Services [address] [place] [address] Chest PA and Lateral MR#: [id number] Acct: [id number] Name: LAURIE GONZALES Rep #: [id number] : 1980 M 44 From: Heather Brown MD PCP: Dr. Kristal Sullivan MD Status: REG E R Study:Chest PA and Lateral Date of Exam: 08/10/24 Exam# [id number] Ordering Dr: Jace Yanes DO PROCEDURE: CHEST [...] IMPRESSION: No acute cardiopulmonary abnormality. Reading Location: [id number] CC: Dr. Kristal Sullivan MD; Dr. Jace Yanes DO ~ Shuttle Van Driver: Signed [facility]05-13-2025 Telephone encounter Note* Telephone Encounter - Kristal Sullivan MD - 08/10/2024 4:56 PM EDT Patient called and requested zofran refill for her nausea. RegardsKristal MD [facility]05-13-2025 Miscellaneous Notes* Telephone Encounter - Kristal Sullivan MD - 08/10/2024 4:56 PM EDT Patient called and requested zofran refill for her nausea. RegardsKristal MD [facility] Discharge summary Author Jace Yanes [facility] Note Date/Time August 10, 2024 11:53 pm [facility] Medical Records Department [address] [place] [address] Emergency Department Summary 08/10/24 MR#: [id number] Acct: [id number] Name: LAURIE GONZALES [place] Rep #:[id number] : 1980 44 From: Jace Rios PCP: [...] Prior Similar Symptoms: Yes and With Prior KS CVD Risk Factors: Positive for Hypertension, Diabetes and Hypercholesterolemia; Negative for Family History 1' </=55 or Smoking PE Risk Factors: Negative for Recent Travel/Surgery, Recent Immobilization or Prior DVT or PE [facility] Medical History Insulin dependent diabetes mellitus Diabetes [...] #1 ea 04/01/24 Unknown Rx (Dexcom G6 [employer]) insulin pump cart,auto,BT,G6/7 #30 ea 04/01/24 Unknown [...] of the culprit lesion for non-ST elevation KS which is a diffuse left anterior descending [...] hemangioma. Currently symptom-free. I spoke with on-call box car bracer Dr. Cross discussed his history his cath [...] Cardiology, hospitalist This note was generated with [employer] dictation software. It may contain incorrectwords, spelling, [...] 77.5 H Lymph % (Auto) 12.1 L Ballard % (Auto) 8.3 Eos % (Auto) 1.0 [...] IMPRESSION: No acute cardiopulmonary abnormality. Reading Location: [id number] Chest CTA 08/10/24 21:35 IMPRESSION: No evidence of pulmonary embolism or acute findings in the thorax. 6.5 x 4.7 cm right hepatic lobe mass. Differential considerations include a hemangioma. Recommend further evaluation with CT or MRI liver protocol. Reading Location: [facility] Discharge Plan Triage Chief Complaint: Chest Pain [...] 1RF Rx Instructions: tid (DME) Dexcom G6 [employer] Misc See Rx Instructions .Route Qty: 1 [...] MD [Primary Care Provider] - Print Language: Cuban What to do if you have Problems For any increased pain, shortness of breath, bleeding, nausea or vomiting, chestpain, or any unexpected problems, contact your Primary Care Provider. Call [facility] ([phone]) or report to the closest Emergency Room. Call 911 if necessary. 08/10/24 2232 <Electronically signed by Jace Rios> Cosigner Signature (if applicable): CC: Dr. Kristal Sullivan MD ~ Signed [facility] Work Phone: 1(215) 165-548504-30-2025 Evaluation note* Diagnosis Onset Date Resolution Status Admit Date DM type 1 (diabetes mellitus , type [...] Erosive esophagitis acute September 07, 2024 12:44pm Acute hypoxemic respiratory failure acute October 19, 2024 3:37am Missed dialysis acute September 3:37am Pneumonia acute October 19 3:37am DM type 1 (diabetes mellitus , type 1) chronic October 19, 2024 3:37am Hypertension chronic October 19, 2 025 3:37am [facility] Work Phone: 1(428) 966-265804-30-2025 Evaluation note* Diagnosis Onset Date Resolution Status Admit Date DM type 1 (diabetes mellitus , type [...] Erosive esophagitis acute September 07, 2024 12:44pm Acute hypoxemic respiratory failure acute October 19, 2024 3:37am ESRD (end stage renal diseas e) on dialysis acute October 19, 2024 3:37am Missed dialysis acute September 3:37am Pneumonia acute October 19 3:37am DM type 1 (diabetes mellitus , type 1) chronic October 19, 2024 3:37am Hypertension chronic October 19, 2 025 3:37am [facility] Work Phone: [phone]) 876-843904-22-2025 History and physical note Author Garrison Valadez [facility] Note Date/Time July 20, 2024 3:5 6pm [facility] Medical Records Department [address] [place] [address] History & Physical Exam 07/20/24 1555 MR#: [id number] Acct: [id number] Name: LAURIE GONZALES Rep #:[id number] : 1980 43 From: Garrison Valadez MD PCP: Dr. Kristal Sullivan MD Status:REG S ID Location: [place] [address] History and Physical Allergies No Known Allergies Allergy (Verified 06/18/24 11:29) Medications ?Medication ?Instructions ?Recorded ?Confirmed ?Type blood sugar diagnostic (FreeStyle #100 ea 07/11/22 03/21/25 Rx Lite Strips) lancing device with lancets kit #100 ea 11/26/21 06/18/24 Rx ([employer] Delica Plus Lancing Device kit) pen needle, [...] #1 ea 04/01/24 06/18/24 Rx (Dexcom G6 Salesperson Books) blood-glucose sensor (Dexcom G6 #9 ea 04/01/24 [...] distress Orientation: alert, awake and oriented x3 [facility] Head: no palpable skull fracture, normocephalic and [...] Sullivan MD; Dr. Garrison Valadez MD~ Signed [facility] Work Phone: 1(847) 622-155304-22-2025 Procedure note [facility] Medical Records Department [address] [place] [address] Operative Report 07/20/24 1650 MR#: [id number] Acct: [id number] Name: LAURIE GONZALES Rep #:[id number] : 1980 43 From: Garrison Valadez MD PCP: Dr. Kristal Sullivan MD Status:REG S DC Location: [place] [address] Operative Report (Standard) Operative Information Date of Procedure: 07/20/24 Pre-Operative Diagnosis: non-maturing left rad-ceph fistula Post-Operative Diagnosis: same Surgery/Procedure Performed: ligation multiple fistula branches fur storage clerk: Yes Livestock Rancher: Pako Bowman Tasks completed by medical staff assistant: Opening, Closing, Opening & closing and Hemostasis: [...] Findings: see above Complications Complications: No 07/20/24 4657 Cosigner Signature (if applicable): CC: Dr. Kristal Sullivan MD; Dr. Garrison Valadez MD~ Signed [facility]04-22-[address] [facility] Medical Records Department [address] [place] [address] Anesthesia Postop Eval I 07/20/24 1654 MR#: [id number] Acct: [id number] Name: LAURIE GONZALES Rep #:[id number] : 1980 43 From: Siva Drew CRNA PCP: Dr. Kristal Sullivan MD Status:REG S DC Y Race: C Location: [place] [address] Anesthesia: Postop Eval I Current Vital Signs [...] Eval 1 completed: Yes 07/20/24 1655 y MANAGER INPATIENT> Date _ Siva Drew MANAGER INPATIENT Cosigner Signature: Date CC: ~ Signed [facility]04-22-2025 Discharge summary [facility] Medical Records Department [address] [place] [address] Instructions for Home/Discharge Instructions 07/20/24 1640 MR#: [id number] Acct: [id number] Name: LAURIE GONZALES Rep #:[id number] : 1980 43 From: Garrison Valadez MD [...] Care Provider: Kristal Sullivan Instructions Print Language: Cuban Discharge Orders/Prescriptions Prescriptions: New oxycodone 5 mg [...] 20 unit subcut QAM PRN (Reason: PRN) ([facility]) lancing device with lancets [[employer] Delica Plus Lanc Dev] Kit See Rx [...] .MEDSUPPLY Qty: 50 0RF Rx Instructions: daily ([facility]) insulin syringe-needle U-100 [BD Insulin Syringe Ultra-Fine] 0.3 mL 31 gauge x 5/16 syringe See Rx Instructions .Route Qty: 100 1RF Rx Instructions: tid (DME) Dexcom G6 Salesperson Books Misc See Rx Instructions .Route Qty: 1 0RF Rx Instructions: As directed ([facility]) Dexcom G6 Sensor Device See Rx Instructions [...] CC: Dr. Kristal Sullivan MD ~ Signed [facility]04-22-2025 History and physical note [facility] Medical Records Department [address] [place] [address] History & Physical Exam 07/20/24 1555 MR#: [id number] Acct: [id number] Name: LAURIE GONZALES Rep #:[id number] : 1980 43 From: Garrison Valadez MD PCP: Dr. Kristal Sullivan MD Status:REG S ID Location: [place] [address] History and Physical Allergies No Known Allergies Allergy (Verified 06/18/24 11:29) Medications ?Medication ?Instructions ?Recorded ?Confirmed ?Type blood sugar diagnostic (FreeStyle #100 ea 10/08/21 06/18/24 Rx Lite Strips) lancing device with lancets kit #100 ea 11/26/21 06/18/24 Rx ([employer] Delica Plus Lancing Device kit) pen needle, [...] #1 ea 04/01/24 06/18/24 Rx (Dexcom G6 [employer]) blood-glucose sensor (Dexcom G6 #9 ea 04/01/24 [...] Sullivan MD; Dr. Garrison Valadez MD~ Signed [facility]04-22-2025 Consult note Author [facility]un [facility] Note Date/Time July 20, 2024 1:[address] [facility] Medical Records Department [address] [place] [address] Pre-Anesthesia Evaluation 07/20/24 1348 MR#: [id number] Acct: [id number] Name: LAURIE GONZALES Rep #:[id number] : 1980 43 From: Shaun Thompson MD PCP: Dr. Kristla Sullivan MD Status:REG S DC Y Race: C Location: [place] [address]- ASA Classification* ASA Classification ASA Classification: 3 [...] Arteriovenous Ligation Anesthesia History Anesthesia History - web site administrator: Anesthesia History - web site administrator Hx Hospitalization Yes: 12/202307/16/24 14:53 Any Problems [...] sips of water?: Yes PONV PONV - web site administrator: PONV - web site administrator Female No 07/16/24 14:53 HX of Motion [...] 07/20/24 13:23 Respiratory Assessment Respiratory Assessment - web site administrator: Respiratory Tract Infection Hx - web site administrator Hx Respiratory Tract Infection No 07/16/24 14:53 STOP Sleep Apnea STOP Sleep Apnea - web site administrator: STOP Sleep Apnea - web site administrator Hx Hypertension Yes: CONTROLLED ON MED 07/16/24 [...] Tobacco Use History Tobacco Use History - web site administrator: Tobacco Use History - web site administrator Tobacco Use Non-smoker 06/30/24 15:56 Smoking Status Never smoker 07/16/24 14:53 Hx Tobacco Use No 07/16/24 14:53 Years Smoking Packs Smoked per Day Smoking Cessation Date was within the last 15 years Hx Smoking Cessation Date Hx Smoking Cessation Counseling Hematologic Medial History Hematologic Hx - web site administrator: Hematologic Medical Hx - health consultant Hx of Blood Transfusion Yes 07/16/24 14:53 [...] confused, unrespo /Reproduction History /Reproductive History - web site administrator: /Reproductive Hx- web site administrator Hx Now Gestational Age (in weeks): EDC: [...] #1 ea 04/01/24 Unknown Rx (Dexcom G6 [employer]) blood-glucose sensor (Dexcom G6 #9 ea 04/01/24 [...] gaffney MD> Date _ [facility]un [facility] Date CC: ~ Signed [facility] Work Phone: 1(687) 324-437104-22-2025 [facility]04-22-[address] [facility] Medical Records Department [address] [place] [address] Pre-Anesthesia Evaluation 07/20/24 1348 MR#: [id number] Acct: [id number] Name: LAURIE GONZALES Rep #:[id number] : 1980 43 From: Shaun Thompson MD PCP: Dr. Kristal Sullivan MD Status:REG S DC Y Race: C Location: [place] [address] ASA Classification* ASA Classification ASA Classification: 3 [...] Arteriovenous Ligation Anesthesia History Anesthesia History - web site administrator: Anesthesia History - web site administrator Hx Hospitalization Yes: 12/202307/16/24 14:53 Any Problems [...] sips of water?: Yes PONV PONV - web site administrator: PONV - web site administrator Female No 07/16/24 14:53 HX of Motion [...] 07/20/24 13:23 Respiratory Assessment Respiratory Assessment - web site administrator: Respiratory Tract Infection Hx - web site administrator Hx Respiratory Tract Infection No 07/16/24 14:53 STOP Sleep Apnea STOP Sleep Apnea - web site administrator: STOP Sleep Apnea - web site administrator Hx Hypertension Yes: CONTROLLED ON MED 07/16/24 [...] Tobacco Use History Tobacco Use History - web site administrator: Tobacco Use History - web site administrator Tobacco Use Non-smoker 06/30/24 15:56 Smoking Status Never smoker 07/16/24 14:53 Hx Tobacco Use No 07/16/24 14:53 Years Smoking Packs Smoked per Day Smoking Cessation Date was within the last 15 years Hx Smoking Cessation Date Hx Smoking Cessation Counseling Hematologic Medial History Hematologic Hx - web site administrator: Hematologic Medical Hx - health consultant Hx of Blood Transfusion Yes 07/16/24 14:53 [...] confused, unrespo /Reproduction History /Reproductive History - web site administrator: /Reproductive Hx- web site administrator Hx Now Gestational Age (in weeks): EDC: [...] #1 ea 04/01/24 Unknown Rx (Dexcom G6 [employer]) blood-glucose sensor (Dexcom G6 #9 ea 04/01/24 [...] MD Cosigner Signature: Date CC: ~ Signed [facility]04-16-2025 NoteHNO ID: [id number] Author: ATUL, RORO, RN Service: ? Author Type: Registered Nurse Type: Progress Notes Filed: 07/14/2024 11:14 Note Text: I left a detailed vm for Mr Gonzales informing him he is actively listed. I encouraged him to have a bag packed, support person aware and phone numbers current. [facility]oro Pollard [facility] History of Present illness Narrative* Roro Pollard RN - 07/14/2024 11:11 AM EDT I left a detailed vm for Mr Gonzales informing him he is actively listed. I encouraged him to have abag packed, support person aware and phone numbers current. Roro Pollard RN documented in this encounterKindred [facility]04-16-2025 NoteHNO ID: [id number] Author: RORO POLLARD RN Service: ? Author [...] [facility] waiting list. Roro Pollard RN Pre-Transplant CoordinatorGlen[facility]igh [facility]04-16-2025 History of Present illness Narrative* Roro Pollard RN - 07/14/2024 11:09 AM EDT ABO Verification prior to Listing: Laurie Gonzales'kaylen ABO blood type has been verified using source documentation from samples: drawn on two separate occasions with different collection times submitted as separate samples The results of these samples are the same and indicate that the patient's ABO blood type is: AB. Transplant Coordinators performing verification: KANDACE Cain RN Patient has been added to the [facility] waiting list. Roro Pollard RN Pre-Plastics Bench Mechanic documented in this encounterKindred [facility]03-26-2025 Note* Addendum Note - Roro Pollard RN - 06/23/2024 1:39 PM EDTAddended by: RORO POLLARD on: 06/23/2024 01:39 PM Modules accepted: Orders [facility]03-26-2025 Miscellaneous Notes* Addendum Note - Roro Pollard RN - 06/23/2024 1:39 PM EDTAddended by: RORO POLLARD on: 06/23/2024 01:39 PM Modules accepted: Orders documented in this encounterKindred Hospital [facility]03-26-2025 NoteHNO ID: [id number] Author: RORO POLLARD RN Service: ? Author Type: Registered Nurse Type: Progress Notes Filed: 06/23/2024 13:38 Note Text: Informed Laurie M Christian that the Kidney/Pancreas Selection Committee approved them to be listed for a kidney transplant. Informed patient that potential donors can begin work-up once they have submitted a fresh serum sample AND they are placed on the list. Gave them the Living Donor Office online web address and office phone number. [email or web address] Office Reminded Laurie Gonzales that if uncomfortable [...] if patient is on dialysis Yes HD, [facility] Discussed with the patient that staying [...] once they are listed: Bg Jennings RN [phone]. Patient verbalized understanding of all the information that was discussed. Will move forward with the listing process for kidney-pancreas transplant. Roro Pollard RN Pre-Kidney AND Pancreas Plastics Bench Mechanic [facility]03-26-2025 History of Present illness Narrative* Roro Pollard [...] Office online web address and officephone number. [email or web address] Office Reminded Laurie Gonzales that if uncomfortable [...] if patient is on dialysis Yes HD, [facility] Discussed with the patient that staying [...] case once they are listed:Bg Jennings RN [phone]. Patient verbalized understanding of all the information that was discussed. Will move forward with the listing process for kidney-pancreas transplant. Roro Pollard RN Pre-Kidney & Pancreas Plastics Bench Mechanic [facility] documented in this encounterKindred Hospital [facility]ima03-26-2025 Telephone encounter Note * Telephone Encounter - Vianey Jean MA - 06/23/2024 9:14 AM EDT Patient notified form is ready for orange picker. [facility]03-26-2025 Miscellaneous Notes* Telephone Encounter - Vianey Jean MA - 06/23/2024 9:14 AM EDT Patient notified form is ready for orange picker. * Telephone Encounter - Kim Loving MA - 06/18/2024 3:29 PM EDT Type of form: BMV Request for Statement of Physician Form received via walk in When form is completed, Scan form into Epic & call patient for orange picker Form has been forwarded to Physician Desk: Dr. Marly Loving MA documented in this encounterKindred Hospital [facility]ima03-21-2025 Telephone encounter Note * Telephone Encounter - Kim Loving MA - 06/18/2024 3:29 PM EDT Type of form: BMV Request for Statement of Physician Form received via walk in When form is completed, Scan form into Epic & call patient for orange picker Form has been forwarded to Physician Desk: Dr. Marly Loving MA [facility]03-21-2025 Evaluation note* Diagnosis Onset Date Resolution Status [...] 2024 2:27pm Odynophagia acute August 17 2:27pm [facility] Work Phone: 1(648) 577-704703-21-2025 Evaluation note* Diagnosis Onset Date Resolution Status [...] Erosive esophagitis acute September 07, 2024 12:44pm [facility] Work Phone: 1(619) 727-301003-21-2025 Evaluation note* Diagnosis Onset Date Resolution Status [...] 2024 3:01pm Hypertension chronic August 31 3:01pm [facility] Work Phone: 1(134) 322-458703-21-2025 Evaluation note* Diagnosis Onset Date Resolution Status [...] 2024 10:25am Odynophagia acute August 31 10:25am [facility] Work Phone: 1(461) 659-317303-18-2025 Instructions* Patient Instructions* Kristal Sullivan MD - [...] completion. 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 documented in this encounterKindred Hospital [facility]ima03-18-2025 NoteHNO ID: [id number] Author: KRISTAL SULLIVAN MD Service: ? Author [...] thirst. - Discussed Ozempic and Mounjaro with DIAMOND EXPERT for appetite control. - On kidney and [facility]. - Taking vitamin D, increased to 3 pills daily. CAD: - KS in March, with stent placement in LAD. - Reports nausea, weakness, and difficulty walking during KS. - Underwent stress test post-KS. - Taking aspirin daily. - On metoprolol succinate 25 mg daily and amlodipine. - Stopped lisinopril due to lack of refills. Pulmonary Edema: - Developed pulmonary edema post-KS, requiring BiPAP for a week. - Denies current asthma symptoms; not taking montelukast. Weight Management: - Current weight 202 lbs, down from 211 lbs. - Reports weight fluctuations due to fluid retention and dialysis. 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 - Enjoys outdoor activities like fishing and riding a 4-vick. - Describes self as lazy and does not engage in regular exercise. - Sleeps well and denies significant stress. 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 [...] sugar diagnostic (FREESTYLE LITE STRIPS) test strip [employer] [facility].Gluc.Intol,Lac-Free,Soy (GLUCERNA SHAKE) liqd rosuvastatin (CRESTOR) 20 mg tablet insulin aspart U-100 (NOVOLOG FLEXPEN U-100 INSULIN) 100 unit/mL (3 mL) alcohol swabs padm Insulin [place], Disposable, (BD ULTRA-FINE CAROL PEN NEEDLE) 32 gauge x 5/32 ndle Zn Lqwyjvn-Xzuuvexyfrm-Rrr (AMERIGEL) gel metoprolol succinate ER (TOPROL XL) 25 mg 24 hr tablet amLODIPine (NORVASC) 5 mg tablet Cholecalciferol, Vitamin D3, 125 mcg (5,000 unit) cap insulin glargine (LANTUS SOLOSTAR, BASAGLAR KWIKPEN) 100 unit/mL (3 mL) glucose 4 gram chewable tablet lancets (FREESTYLE LANCETS) 28 gauge [facility] Health Maintenance Depression Screening Anxiety Screening BP [...] - Provided documentation for disability placard and 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 2. Obstructive sleep apnea (adult) (pediatric) ( (more content not included)... [facility]03-[facility] History of Present illness Narrative* Kristal Sullivan [...] hunger and thirst. - Discussed Ozempyusuf and Moneisharo with DIAMOND EXPERT for appetite control. - On kidney and pancreas [facility] list [facility]. - Taking vitamin D, increased to 3 pills daily. CAD: - KS in March, with stent placement in LAD. - Reports nausea, weakness, and difficulty walking during KS. - Underwent stress test post-KS. - Taking aspirin daily. - On metoprolol succinate 25 mg daily and amlodipine. - Stopped lisinopril due to lack of refills. Pulmonary Edema: - Developed pulmonary edema post-KS, requiring BiPAP for a week. - Denies current asthma symptoms; not taking montelukast. Weight Management: - Current weight 202 lbs, down from 211 lbs. - Reports weight fluctuations due to fluid retention and dialysis. 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 - Enjoys outdoor activities like fishing and riding a 4-vick. - Describes self as lazy and does not engage in regular exercise. - Sleeps well and denies significant stress. 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 [...] (FREESTYLE LITE STRIPS) test strip [employer]PL[employer] [facility].Tx.Gluc.Intol,Lac-Free,Soy (GLUCERNA SHAKE) liqd rosuvastatin (CRESTOR) 20 mg tablet insulin aspart U-100 (NOVOLOG FLEXPEN U-100 INSULIN) 100 unit/mL (3 mL) alcohol swabs padm Insulin [place], Disposable, (BD ULTRA-FINE CAROL PEN NEEDLE) 32 gauge x 5/32 ndle Zn Hnbejte-Ohdukhohmfy-Qsk (AMERIGEL) gel metoprolol succinate ER (TOPROL XL) 25 mg 24 hr tablet amLODIPine (NORVASC) 5 mg tablet Cholecalciferol, Vitamin D3, 125 mcg (5,000 unit) cap insulin glargine (LANTUS SOLOSTAR, BASAGLAR KWIKPEN) 100 unit/mL (3 mL) glucose 4 gram chewable tablet lancets (FREESTYLE LANCETS) 28 gauge [facility] [place] Health Maintenance Depression Screening Anxiety Screening BP [...] - Provided documentation for disability placard and 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 2. Obstructive sleep apnea (adult) (pediatric) (G47.33) - Managed with BiPAP machine. - Continue current treatment. 3. Essential (primary) hypertension (I10) - Blood pressure management with metoprolol succinate once daily and amlodipine. - Advised to reduce amlodipine to the lowest dose of 2.5 mg and attempt discontinuation. - Emphasized the importance of continuing metoprolol for cardiac health. 4. long term (current) use of insulin (HCC) (Z79.4) - [...] On kidney and [facility]. - Continue current dialysis regimen and follow-up with transplant team. Voice recognition software was used to compose this office note. Please excuse any unintended typographical errors. The patient consented to the use of ambient AI software for draft documentation of the visit consistent with [facility] s Notice of Privacy Practices. Kristal Sullivan MD documented in this encounterKindred Hospital [facility]03-07-2025 History of Present illness Narrative* Rukhsana Hernandez RPh - 06/04/2024 1:44 PM EST I have reviewed the patient s medication profile and there are no identified medication issues thatwould preclude transplant in this patient. Rukhsana Hernandez PharmD documented in this encounterKindred Hospital [facility]ima03-07-2025 NoteHNO ID: [id number] Author: RUKHSANA HERNANDEZ RPh Service: ? Author Type: Pharmacist Type: Progress Notes Filed: 06/04/2024 13:45 Note Text: I have reviewed the patient?s medication profile and there are no identified medication issues that would preclude transplant in this patient. Rukhsana Hernandez, [facility]03-06-2025 NoteHNO ID: [id number] Author: CIARRA RAMÍREZ LISW Service: ? Author Type: Chemical Equipment Sales Engineer Type: Progress Notes Filed: 06/03/2024 11:29 Note [...] of non compliance. JUSTIN Andrews-S Transplant Social WorkerGlenbeigh Hospital03-06-2025 History of Present illness Narrative* Ciarra Ramírez LISW - 06/03/2024 11:26 AM EST Psychosocial [...] history of non compliance. JUSTIN Andrews-Kaylen Transplant Chemical Equipment Sales Engineer documented in this encounterKindred Hospital [facility]ima02-28-2025 NoteHNO ID: [id number] Author: VIANEY JEAN MA Service: ? Author Type: Batt Packer Type: Progress Notes Filed: 05/28/2024 12:59 Note Text: My Chart message sent to patient.[facility]02-28-20[facility] History of Present illness Narrative* Vianey Jean MA - 05/28/2024 12:59 PM EST My [...] appt to review diabetes. documented in this encounterKindred Hospital [facility]ima02-28-2025 NoteHNO ID: [id number] Author: KAYLA TANNER LPN Service: ? Author Type: LICENSED NURSE Type: Progress Notes Filed: 05/28/2024 12:59 Note Text: Appt arranged with pcp . any labs due before appt? Will have to send pt a my chart message to advise of any labsGlenbeigh Hospital02-25-2025 Telephone encounter Note* Telephone Encounter - Ciarra Ramírez LISW - 05/25/2024 3:21 PM EST SW received a phone call from pt's mother Page ([phone]) regarding support. SW reviewed the follow up care sequence, including lab work twice a week and twice a week post transplant clinic appointments. SW also discussed the need to have a caregiver multimedia programmer for 2 weeks post transplant. Page reports being 66yrs old and she is retired. Page stated she is available whenever needed to assist with caregiver / transportation support. Page verified her commitment to help pt post transplant. WILBUR Andrews Transplant Chemical Equipment Sales Engineer [facility] Work Phone: [phone] Miscellaneous Notes* Telephone Encounter - Ciarra Ramírez LISW - 05/25/2024 3:21 PM EST SW received a phone call from pt's mother Page ([phone]) regarding support. SW reviewed the follow up care sequence, including lab work twice a week and twice a week post transplant clinic appointments. SW also discussed the need to have a caregiver multimedia programmer for 2 weeks post transplant. Page reports being 66yrs old and she is retired. Page stated she is available whenever needed to assist with caregiver / transportation support. Page verified her commitment to help pt post transplant. WILBUR Andrews Transplant Chemical Equipment Sales Engineer * Telephone Encounter - Ciarra Ramírez LISW - 05/25/2024 3:15 PM EST ADITHYA [...] will await phone calls. documented in this encounterKindred Hospital [facility]ima02-25-2025 Telephone encounter Note * Telephone Encounter - Ciarra Ramírez LISW - 05/25/2024 3:15 PM EST SW [...] verbalized understanding. SW will await phone calls. [facility]02-24-2025 NoteHNO ID: [id number] Author: KAYLA TANNER LPN Service: ? Author Type: LICENSED NURSE Type: Progress Notes Filed: 05/28/2024 12:59 Note Text: Pt has reviewed the my chart message.[facility]02-21-2025 Note HNO ID: [id number] Author: KAYLA TANNER LPN Service: ? Author Type: LICENSED NURSE Type: Progress Notes Filed: 05/28/2024 12:59 Note Text: My chart message to pt to call for an appt to review diabetes.[facility]02-21-2025 NotePatient Outreach (INTMWS) LAURIE GONZALES ([id number]) 1980 M Date Time Provider Department 05/21/24 KRISTAL SULLIVAN INTMWS During your visit today, [...] message to advise of any labs Vianey Jean MA 05/28/2024 12:59 PM Signed My Chart message sent to patient. Allergies As of Date: 05/21/2024 Noted Allergy Reaction SEASONAL ALLERGIES 11/17/2014 5 - Intolerance Date Reviewed: 04/12/2024 Reviewed by: Ira Osorio RT(R) - Partially Assessed Reason for Visit: Diabetes [34] Primary Visit Diagnosis:Type 1 diabetes mellitus with other specified complication (HCC) [E10.69] Order(s):HEMOGLOBIN A1C [PSLKY4F] Order #: [id number] STANDING COMPREHENSIVE METABOLIC PANEL [SQCMP] Order #: [id number] STANDING COMPLETE BLOOD COUNT [SQCBC] Order #: [id number] STANDING THYROID STIMULATING HORMONE [SQTSH] Order #: [id number] STANDING LIPID PANEL BASIC [SQLIPB] Order #: [id number] STANDING Prescriptions as of 05/28/2024 - Acetone, [...] AFFECTED AREA FIVE TIMES DAILY - Insulin [place], Disposable, (BD ULTRA-FINE CAROL PEN NEEDLE) 32 gauge x 5/32 ndle Use one needle for each dose. 7/day. - Zn Iwtngod-Ydplryxfvfb-Uft (AMERIGEL) gel Apply 1 application to affected [...] hypertension [I10] 12/01/2020 Encounter Status:Closed by VIANEY JEAN on 05/28/24[facility] 04-29-2024 Telephone encounter Note* Telephone Encounter - Ciarra Ramírez LISW - 04/29/2024 10:47 AM EST SW called pt in preparation of selection committee. SW reminded pt that both his primary and backupsupport needs to be verified. SW requested that they contact SW to verify their commitment. Pt verbalized understanding. SW will await phone calls. WILBUR Andrews Transplant Chemical Equipment Sales Engineer [facility] Work Phone: 1(154) 426-479201-30-2025 Miscellaneous Notes* Telephone Encounter - Ciarra Ramírez LISW - 04/29/2024 10:47 AM EST SW called pt in preparation of selection committee. SW reminded pt that both his primary and backupsupport needs to be verified. SW requested that they contact SW to verify their commitment. Pt verbalized understanding. SW will await phone calls. WILBUR Andrews Transplant Chemical Equipment Sales Engineer documented in this encounterKindred Hospital Lima01-24-2025 Evaluation note* Diagnosis Onset Date Resolution Status Admit Date AV fistula acute April 23, 2024 8:10am ESRD (end stage renal diseas e) on dialysis acute April 23 8:10am Malfunction of arteriovenous dialysis fistula acute June 18 11:17am [facility] Work Phone: 1(785) 858-289701-24-2025 Evaluation note* Diagnosis Onset Date Resolution Status [...] AV fistula acute August 05, 2024 10:47am [facility] Work Phone: 1(971) 325-318601-24-2025 Evaluation note* Diagnosis Onset Date Resolution Status [...] 2024 11:09pm Elevated troponin acute July 11:09pm [facility] Work Phone: 1(997) 434-601201-24-2025 Evaluation note* Diagnosis Onset Date Resolution Status [...] 2024 2:27pm Odynophagia acute August 17 2:27pm [employer] Work Phone: 1(775) 331-797901-13-2025 History of Present illness Narrative* Ira Osorio [...] PATIENT PRESENTS WITH AN IMPLANTABLE OR ATTACHED SALVAGE MEND WORKER: n/a CREATININE: Creatinine Date Value Ref Range [...] Discontinued PROCEDURE TYPE: NM Stress: 14.2 mCi Gl40i-Msjptys was administered IV for Rest Imaging at 08:20 by Ira Osorio. 34.8 mCi Fi22x-Genqwir was administered IV for Stress Imaging at 09:32 by Ira Osorio. PATIENT DISCHARGED TO: Ambulatory patient, left NM department area. Is this a therapy: No A Diagnostic radioactive procedure has taken place, with no further precautions necessary other than routine body substance precautions. More information regarding radiation safety can be found usingthis link: [email or web address] SIGNATURE: RT Cooper (R) PATIENT NAME: Laurie Gonzales DATE: April 12, 2024 TIME: 11:11 AM PAGER/CONTACT #: documented in this encounterKindred Hospital Lima01-13-2025 NoteHNO ID: [id number] Author: IRA OSORIO RT (R) Service: Nuclear [...] PATIENT PRESENTS WITH AN IMPLANTABLE OR ATTACHED SALVAGE MEND WORKER: n/a CREATININE: Creatinine Date Value Ref Range [...] Discontinued PROCEDURE TYPE: NM Stress: 14.2 mCi Cm49x-Dkbrmkw was administered IV for Rest Imaging at 08:20 by Ira Osorio. 34.8 mCi Ya50n-Xcqsjro was administered IV for Stress Imaging at [...] April 12, 2024 TIME: 11:11 AM PAGER/CONTACT #:[facility]01-08-2025 Telephone encounter Note* Telephone Encounter - Willie Gonzalez RN - 04/07/2024 3:15 PM EST Nuc pharm stress test instructions provided to patient via msg. [facility]01-08-2025 Miscellaneous Notes* Telephone Encounter - Willie Gonzalez RN - 04/07/2024 3:15 PM EST Nuc pharm stress test instructions provided to patient via msg. documented in this encounterKindred Hospital Lima11-27-2024 Evaluation note* Diagnosis Onset Date Resolution Status Admit Date Decreased pedal pulses acute No 2023 9:03am History of coronary artery stent placement chronic February 24, 9:03am Hyperlipidemia chronic January 302023 9:03am Hypertension chronic January 9:03am DM type 1 (diabetes mellitus , type 1) acute February 24 10:19am Hyperlipidemia chronic January 302023 10:19am Hypertension chronic January 10:19am Insulin pump titration chronic No 2023 10:19am Presence of insulin pump chronic February 25, 2024 10:19am Vitamin D deficiency chronic Nove [facility] 2023 10:19am AV fistula acute April 23, 2024 8:10am ESRD (end stage renal diseas e) on dialysis acute April 23 8:10am Malfunction of arteriovenous dialysis fistula acute June 18 11:17am [facility] Work Phone: 1([phone]) 396-475611-12-2024 Telephone encounter Note* Telephone Encounter - Roro [...] know I will follow upwith our financial data analyst to assist and give him a call. Mr Gonzales acknowledged understanding. Roro Pollard RN [facility]11-12-2024 Miscellaneous Notes* Telephone Encounter - Roro Pollard [...] know I will follow upwith our financial data analyst to assist and give him a call. Mr Gonzales acknowledged understanding. Roro Pollard RN * Telephone Encounter - Genet Persaud - 02/06/2024 3:07 PM EST Patient called regarding an update . Requesting a return call from the commercial coordinator. Please call him at [phone]. Genet Persaud documented in this encounterKindred Hospital Lima11-08-2024 Telephone encounter Note * Telephone Encounter - Genet Persaud - 02/06/2024 3:07 PM EST Patient called regarding an update . Requesting a return call from the commercial coordinator. Please call him at [phone]. Genet Persaud [facility] Work Phone: 1(702) 191-780911-02-2024 [facility]06-03-2024 History of Present illness Narrative* Roro Pollard RN (Txp) - 09/01/2023 9:53 AM EDT I left a detailed vm for Mr Gonzales. I informed him per Dr Burnette ,he is Type 1 DM, cpeptide undetectable Needs better glucose control with stave grader. Phone number provided Roro Pollard RN documented in this encounterKindred Hospital Lima05-30-2024 History of Present illness Narrative* Ronen Eldridge MD - 08/28/2023 4:00 PM EDT [facility] [place] [facility] Transplant Evaluation CC: Consultation for Kidney/Pancreas transplant evaluation. Referred by: DR. Vivek Diaz- Kidney [address] [facility] [address] I will communicate with the referring provider [...] devices. 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 7/day. Zn Pholmjd-Kfcheqezzio-Blr (AMERIGEL) gel Apply 1 application to affected [...] No Pre-transplant testing: Cardiac: STRESS TEST 05/2023 [facility] ECHOCARDIOGRAM 07/02/2023 Interpretation/Summary Normal LV size Left [...] and walks daily, denies any history of KS, strokes, peripheral arterial disease, DVTs or PEs, [...] letter. Ronen Eldridge MD documented in this encounterKindred Hospital [facility]ima05-30-2024 Instructions* Patient Instructions* Roro Pollard RN (Txp) [...] will be scheduled for you at a [facility] facility: CARDIAC: Nuclear stress test CANCER SCREENING: ADDITIONAL CONSULTS Imaging Studies: Miscellaneous Items: labs Outside test results should be faxed to [phone]. Please review the kidney transplant educational materials on line at [email or web address] Sign-in: Kidney To check on your status of your evaluation, please contact your coordinator, Roro Pollard RN [phone]. Roro Pollard RN Kidney/Pancreas Pre-Plastics Bench Mechanic [facility] documented in this encounterKindred Hospital [facility]05-30-2024 Instructions* Patient Instructions* Virgen Stroud RD - [...] </= 800-1000 mg daily documented in this encounterKindred Hospital Lima05-30-2024 History of Present illness Narrative* Virgen Stroud [...] a very pleasant 43 yo male from [place]. We discussed his current diet, he is [...] hypofunction Pain in joint, lower leg 03/13/2006 [employer] Schlatter Palpitations Proteinuria Type I (juvenile type) [...] 2023 TIME: 12:50 PM documented in this encounterKindred Hospital Lima05-30-2024 History of Present illness Narrative* Manju Edge [...] PATIENT PRESENTS WITH AN IMPLANTABLE OR ATTACHED SALVAGE MEND WORKER: No RADIOLOGY DEPARTMENT: CT; Exam(s) Completed: Abdomen/Pelvis PERIPHERAL IV DATA: Not applicable SIGNED BY: RT Samanta(R) August 28, 2023 11:35 AM documented in this encounterKindred Hospital Lima05-30-2024 History of Present illness Narrative* Dustin Beard MD - 08/28/2023 11:34 AM EDT [facility] Transplant Evaluation CC: Consultation for Kidney/Pancreas transplant evaluation. Referred by: DR. Vivek Diaz- Kidney [address] [facility] [address] I will communicate with the referring provider [...] devices. 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 Ketone Blood Test (griddig XTRA B-KETONE) strp Test KETONES as directed. [...] TO AFFECTED AREA FIVE TIMES DAILY Insulin [place], Disposable, (BD ULTRA-FINE CAROL PEN NEEDLE) 32 gauge x 5/32 ndle Use one needle for each dose. 7/day. Zn Ycpgdtc-Bjmlhxcieco-Mjl (AMERIGEL) gel Apply 1 application to affected [...] No Pre-transplant testing: Cardiac: STRESS TEST 05/2023 [facility] ECHOCARDIOGRAM 07/02/2023 Interpretation/Summary Normal LV size Left [...] which included preparing to see the patient, [id number] patient care, completing clinical documentation, obtaining and/or reviewing separately obtained history, performing a medically appropriate examination, counseling and educating the pat ient/family/caregiver, ordering medications, tests, or procedures, communicating with other HCPs (not separately reported), independently interpreting results (not separately reported), communicatingresults to the patient/family/caregiver, and care coordination (not separately reported). Dustin Beard documented in this encounterCleveland [id number] History of Present illness Narrative* Ciarra Ramírez, ASSISTANT MEDIA BUYER - 08/28/2023 9:25 AM EDT PSYCHOSOCIAL EVALUATION FOR KIDNEY TRANSPLANT (Assessment Via Telephone Contact) Social Supports: Pt identified support and both of their commitment needs to be verified. Financial Concerns: [facility] [place] Compliance: Pt is not dialysis dependent [...] this assessment. Race/Gender: Male White [] Descent [][place] or []North (non-Black) []White: Other [x]White: Not Specified/Unknown [place] Citizen: Yes IDENTIFYING INFORMATION/LIVING SITUATION Laurie Gonzales resides at: [address] [place] [address]. This home is about 1hr [place] 23min (70 miles) away from . Pt has lived in this bi- level [...] LIVE 2.5 OR MORE HOURS AWAY FROM [facility]: Do you have the financial means [...] Missed doctor appointments: Pt currently has a No Show rate of [...] least 3yrs. 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 N/A LEGAL ENCOUNTERS Currently on probation or [...] Laurie Gonzales was born and raised in [place]. Pt moved to [place] about 18yrs ago. 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 Pt has been with his employer for 9yrs.. Paid Status for Recovery: Pt reports he has both short and long disability via his employer. Pt stated there will not be any financial concerns during his recovery period. HEALTH INSURANCE/FINANCIAL Medical Insurance: [facility] Medicaid ADITHYA encouraged pt to stay on top of [...] commitment needs to be verified. Contact Number: [phone] Health Status and Availability of Caregiver: Ira is reported to be in good health and she 38yrs old. / Pt stated Ira is a RN and she would take time off in order to assist with support. Zulay lives about 20min away from pt's home. Valid Physics Instructor's License/Working Vehicle: Yes / Yes Caregiver Substance Use: Per pt, no. Caregiver Mental Health: Per pt, no. Secondary Caregiver: Page (pt's mother) - Page's commitment needs to be verified. Contact Number: [phone] Health Status and Availability: Pt stated Page has tremors, otherwise she is in good health. / Pt stated Page is retired and available whenever needed to assist with support. Valid Physics Instructor's License/Working Vehicle: Yes / Yes Caregiver Substance [...] verified. Body Image/Scar: No IMPRESSIONS/RECOMMENDATIONS Transplant social worker masters spoke with Laurie Gonzales via telephone. At [...] discussed the need to have a caregiver multimedia programmer for 2 weeks post transplant. Laurie Gonzales [...] the phone number of the transplant social worker masters to address future concerns. JUSTIN Andrews-S Transplant Chemical Equipment Sales Engineer documented in this encounterKindred Hospital Lima05-30-2024 History of Present illness Narrative* Patrice Hollingsworth [...] Kidney- Pancreas Allocation Policy -Directions to access [facility]'s [facility] through [facility] website. -Informed Consent for Transplant Program Participation patient education packet -National Kidney Registry pamphlet -Covid-19 Vaccination for Transplant Candidates Method of Instruction: Individual instruction Written instruction/Handouts Verbal instruction Computer Patient/Family Response: Patient and family member asked appropriate questions, which were answeredsatisfactorily. Follow-Up Plan: Contact information given. Referral/Recommendation: None AGUEDA Valladares RN Pre-Plastics Bench Mechanic documented in this encounterKindred Hospital Lima05-23-2024 Telephone encounter Note * Telephone Encounter - Floyd Wagner RN - 08/21/2023 1:45 PM EDT Unsuccessful attempt to contact Daniel. CONDE. Pt needs to complete education class before 08/27. Will reschedule education for Friday for 8am. Floyd Wagner RN [facility]05-23-2024 Miscellaneous Notes* Telephone Encounter - Floyd Vivar RN - 08/21/2023 1:45 PM EDT Unsuccessful attempt to contact Laurie. LVM. Pt needs to complete education class before 08/27. Will reschedule education for Friday for 8am. Floyd Wagner, RN documented in this encounterKindred Hospital Lima05-16-2024 Telephone encounter Note * Telephone Encounter - Genet Persaud - 08/14/2023 11:56 AM EDT Spoke with patient to confirm scheduled kidney transplant evaluation for next week. Did they receive their schedule? Yes Remind the patient to sign up for MyChart if they have not already - Yes Genet Persaud [facility] Work Phone: 1(598) 439-337205-16-2024 Miscellaneous Notes* Telephone Encounter - Genet Persaud - 08/14/2023 11:56 AM EDT Spoke with patient to confirm scheduled kidney transplant evaluation for next week. Did they receive their schedule? Yes Remind the patient to sign up for MyChart if they have not already - Yes Genet Persaud documented in this encounterKindred Hospital Lima05-03-2024 Procedure [facility]05-03-2024 Discharge summary Author Caleb Vargas [facility] August 01, 2023 11:27am Note Date/Time August 01, 2023 7:33am [facility] Medical Records Department [address] [place] [address] Instructions for Home/Discharge Instructions 08/01/23 0732 MR#: [id number] Acct: [id number] Name: LAURIE GONZALES Rep #:[id number] : 1980 42 From: Caleb Vargas MD [...] Up With: Caleb Vargas MD When: Call [phone] to make an appointment for suture removal [...] 6RF Rx Instructions: 3x/day (DME) Dexcom G6 Salesperson Books Misc See Rx Instructions .Route Qty: 1 [...] CC: Dr. Kristal Sullivan MD ~ Signed [facility] Work Phone: 1(873) 307-680005-03-2024 History and physical note Author [facility] August 01, 2023 7:32am Note Date/Time August 01, 2023 7:32am [facility] Medical Records Department [address] [place] [id number] History & Physical Exam 08/01/23 0732 MR#: [id number] Acct: [id number] Name: LAURIE GONZALES Rep #:[id number] : 1980 42 From: Caleb Vargas MD PCP: Dr. Kristal Sullivan MD Status:REG S ID Location: [place] [address] History and Physical Date of Admission: 08/01/23 Visit Reasons: PD CATH Chief Complaint: PD cath Charge Account Identification Clerk Required: No Is patient in pain?: No Allergies No Known Allergies Allergy (Verified 07/30/23 14:23) Medications blood sugar diagnostic (FreeStyle Lite Strips) #100 ea 10/08/21 [Rx Confirmed 07/30/23] blood-glucose meter,continuous (Dexcom G6 Salesperson Books) #1 ea 10/08/21 [Rx Confirmed 07/30/23] lancing device with lancets kit (Datavail DelBirdbox Plus Lancing Device kit) #100 ea 11/26/21 [...] The patient was recently hospitalized at the [facility] June 30 through July 03, 2023 [...] Sullivan MD; Dr. 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 Detailed voicemail message was left for patient to call our office back to get started with the intake process. [facility]04-30-2024 Miscellaneous Notes* Telephone Encounter - Concha Araiza Tech - 07/29/2023 1:21 PM EDT Called patient without success for kidney transplant referral. Detailed voicemail message was left for patient to call our office back to get started with the intake process. documented in this encounterKindred Hospital Lima04-03-2024 Progress note Author Nelly Gross [facility] July 02, 2023 3:33pm Note Date/Time July 02, 2023 1:39 pm [facility] Medical Records Department [address] [place] [address] Progress Note 07/02/23 1338 MR#: [id number] Acct: [id number] Name: LAURIE GONZALES Rep #:[id number] : 1980 42 From: Nelly Gross MD [...] 77.8 H, Lymph % (Auto) 11.7 L, Ballard % (Auto) 8.3, Eos % (Auto) 1.3, [...] Clarity Clear, Urine pH 6.0, Ur Specific Cromwell 1.010, Urine Protein 100 H, Urine Glucose [...] 72.9 H, Lymph % (Auto) 14.4 L, Ballard % (Auto) 8.6, Eos % (Auto) 2.9, [...] Sullivan Performed By: Anupama Morin, HUNTER, RVT Physical Exam Const alert, oriented x3, [...] on heparin Charges/Coding Visit Charges Inpatient E&M: 04577 Subs Hosp L2 07/02/23 1533 <Electronically signed by Nelly Gross MD> Nelyl Gross MD Cosigner Signature (if applicable): CC: ~ Signed [facility] Work Phone: 1(715) 471-329404-03-2024 Consult note Author [facility] July 02, 2023 2:26pm Note Date/Time July 02, 2023 2:26 pm [facility] Medical Records Department [address] [place] [address] Consultation - Nephrology 07/02/23 1420 MR#: [id number] Acct: [id number] Name: LAURIE GONZALES Rep #:[id number] : 1980 42 From: Roberta riley MD [...] first time he has been seen by manager green was last month, there was Dr. Diaz. [...] Electrolytes are fine, hehas no significant acidosis. [facility] Medical History Abscess Charcot foot due to diabetes mellitus Diabetes mellitus type 1 Insulin pump titration Obesity Presence of insulin pump Type 1 diabetes mellitus Home Medications blood sugar diagnostic (FreeStyle Lite Strips) #100 ea 10/08/21 [Rx Last Taken Unknown] blood-glucose meter,continuous (Dexcom G6 Salesperson Books) #1 ea 10/08/21 [Rx Last Taken Unknown] lancing device with lancets kit (Datavail DelBirdbox Plus Lancing Device kit) #100 ea 11/26/21 [...] hr 07/01/23 13:14: Phosphorus 4.2, Magnesium 2.1 07/01/23 20:00: Troponin I High Sens 47 07/01/23 21:00: Urine Color Straw, Urine Clarity Clear, Urine pH 6.0, Ur Specific Cromwell 1.010, Urine Protein 100 H, Urine Glucose [...] 72.9 H, Lymph % (Auto) 14.4 L, Ballard % (Auto) 8.6, Eos % (Auto) 2.9, [...] Diaz MD; Dr. Louis Koehler MD~ Signed [facility] Work Phone: 1(838) 838-618504-02-2024 History and physical note Author Louis Koehler [facility] July 01, 2023 6:30pm Note Date/Time July 01, 2023 6:28 pm [facility] Medical Records Department [address] [place] [address] H&P Exam - Hospitalist 07/01/23 1803 MR#: [id number] Acct: [id number] Name: LAURIE GONZALES Rep #:[id number] : 1980 42 From: Louis Ricketts PCP: [...] and discussed in detail in assessment plan [facility] Medical History Abscess Charcot foot due to diabetes mellitus Diabetes mellitus type 1 Insulin pump titration Obesity Presence of insulin pump Type 1 diabetes mellitus Home Medications blood sugar diagnostic (FreeStyle Lite Strips) #100 ea 10/08/21 [Rx Last Taken Unknown] blood-glucose meter,continuous (Dexcom G6 Salesperson Books) #1 ea 10/08/21 [Rx Last Taken Unknown] lancing device with lancets kit (Optimal Technologies Plus Lancing Device kit) #100 ea 11/26/21 [Rx Last Taken Unknown] pen needle, diabetic 32 gauge x 5/32 (BD Ultra-Fine Carol Pen Needle) #150 ea 02/26/22 [Rx Last Taken Unknown] alcohol swabs ([employer] Alcohol Swabs) 1 pad topical .4 times [...] 77.8 H, Lymph % (Auto) 11.7 L, Ballard % (Auto) 8.3, Eos % (Auto) 1.3, [...] urinary bladder. Kidneys and bladder ultrasound ordered. User Experience Researcher consulted 3. Type 1 diabetes mellitus with history of diabetic retinopathy: From medical records since patient follows stave grader Kendra Pierce. On insulin pump. If insulin [...] Patient does not have dilated power of divorce attorney forhealth after discussion of benefits/risks procedures involved with full code, DNR CC arrest and DNR CC, the patient opted for full code. Patient does want artificial life support including intubation, tube feed, ventilator and/chest compression, central venous catheter, vasopressor and DC shock if needed Total time spent in tfxo-wi-xfwf encounter in discussion of advanced directive 17 minutes. Laboratory Results 07/01/23 13:14: WBC 10.9, RBC 3.64 L, Hgb 9.9 L, Hct 30.0 L, MCV 82.4, MCH 27.2,MCHC 33.0, RDW Std Deviation 40.4, RDW Coeff of Marcella 13.4, Plt Count 329, MPV 9.3, Immature Gran % (Auto) 0.300, Neut % (Auto) 77.8 H, Lymph % (Auto) 11.7 L, Ballard % (Auto) 8.3, Eos % (Auto) 1.3, [...] 13:41 EDT Reading Location ID and State: [address] [place] [address] , Service support , Charges/Coding Visit Charges Inpatient E&M: 28512 Init Hosp L3 Procedures Hospitalists Procedures: 95717 Advncd Care Plan 30 Min 07/01/23 1830 <Electronically signed by Louis Koehler MD> Cosigner Signature (if applicable): CC: Dr. Kristal Sullivan MD; Dr. Louis Koehler MD~ Signed [facility] Work Phone: 1(827) 196-464004-02-2024 Discharge summary Author Laurie Elizalde [facility] July 01, 2023 4:50pm Note Date/Time July 01, 2023 1:31 pm [facility] Medical Records Department [address] [place] [address] Emergency Department Summary 07/01/23 MR#: [id number] Acct: [id number] Name: LAURIE GONZALES Rep #:[id number] : 1980 42 From: Laurie Thrasher PCP: [...] no history of heart disease or CHF. [facility] Medical History Abscess Charcot foot due to diabetes mellitus Diabetes mellitus type 1 Insulin pump titration Obesity Presence of insulin pump Type 1 diabetes mellitus Home Medications blood sugar diagnostic (FreeStyle Lite Strips) #100 ea 10/08/21 [Rx Last Taken Unknown] blood-glucose meter,continuous (Dexcom G6 Salesperson Books) #1 ea 10/08/21 [Rx Last Taken Unknown] lancing device with lancets kit (Travel and Learning Enterprisesuch Delica Plus Lancing Device kit) #100 ea [...] sinus rhythm. I spoke with the patient's manager green. History & Record Review Discussion w/independent historian: [...] 77.8 H Lymph % (Auto) 11.7 L Ballard % (Auto) 8.3 Eos % (Auto) 1.3 [...] w/another healthcare provider: Hospitalist (Dr. Koehler) and Photolithographic Stripper(Nephrology sales agent pest control service) Discharge Plan Dx/Rx/DC Orders Clinical Impression: DM type 1 (diabetes mellitus, type 1), Obesity, Hypertension, CKD (chronic kidney disease), Volume overload Disposition Disposition: Acute Care Hospital [facility] What to do if you have Problems For any increased pain, shortness of breath, bleeding, nausea or vomiting, chestpain, or any unexpected problems, contact your Primary Care Provider. Call [facility] ([phone]) or report to the closest Emergency Room. Call 911 if necessary. 07/01/23 1650 <Electronically signed by Laurie Elizalde DO> Cosigner Signature (if applicable): CC: Dr. Kristal Sullivan MD ~ Signed [facility] Work Phone: 1(786) 530-802004-02-2024 Discharge summary Author Laurie Elizalde [facility] July 01, 2023 4:50pm Note Date/Time July 01, 2023 1:31 pm [facility] Medical Records Department [address] [place] [address] Emergency Department Summary 07/01/23 MR#: [id number] Acct: [id number] Name: LAURIE GONZALES Rep #:[id number] : 1980 42 From: Laurie Thrasher PCP: [...] no history of heart disease or CHF. [facility] Medical History Abscess Charcot foot due to diabetes mellitus Diabetes mellitus type 1 Insulin pump titration Obesity Presence of insulin pump Type 1 diabetes mellitus Home Medications blood sugar diagnostic (FreeStyle Lite Strips) #100 ea 10/08/21 [Rx Last Taken Unknown] blood-glucose meter,continuous (Dexcom G6 Salesperson Books) #1 ea 10/08/21 [Rx Last Taken Unknown] lancing device with lancets kit (Datavail DelBirdbox Plus Lancing Device kit) #100 ea 11/26/21 [...] sinus rhythm. I spoke with the patient's manager green. History & Record Review Discussion w/independent historian: [...] 77.8 H Lymph % (Auto) 11.7 L Ballard % (Auto) 8.3 Eos % (Auto) 1.3 [...] 13:41 EDT Reading Location ID and State: [facility] / [place] , Service support , EKG Initial EKG: Attestation: I personally reviewed and interpreted this EKG as follows: Comments: Normal sinus rhythm ventricular rate of 88 bpm Management Discussion w/another healthcare provider: Hospitalist (Dr. Koehler) and Photolithographic Stripper(Nephrology sales agent pest control service) Discharge Plan Dx/Rx/DC Orders Clinical Impression: DM type 1 (diabetes mellitus, type 1), Obesity, Hypertension, CKD (chronic kidney disease), Volume overload Disposition Disposition: Acute Care Hospital [facility] What to do if you have Problems For any increased pain, shortness of breath, bleeding, nausea or vomiting, chestpain, or any unexpected problems, contact your Primary Care Provider. Call [facility] ([phone]) or report to the closest Emergency Room. Call 911 if necessary. 07/01/23 1650 <Electronically signed by Laurie Elizalde DO> Cosigner Signature (if applicable): CC: Dr. Kristal Slulivan MD ~ Signed [facility] Work Phone: 1(777) 195-201504-04-2023 Instructions* Patient Instructions* Yas Murray APRN.DRIVER SUPERVISOR - 07/02/2022 12:34 PM EDT Take lisinopril every day. Take it today as soon as you can, your blood pressure is running high Stick with your diabetic diet and remain active, aim for 10,000 steps per day. Avoid fast foods documented in this [facility]Kind[facility]04-[facility]23 History of Present illness Narrative* Yas Murray [...] day doses. No recent fill of coreg. [facility] not taking, last ordered 2020 per PCP [...] TO AFFECTED AREA FIVE TIMES DAILY Insulin [place], Disposable, (BD ULTRA-FINE CAROL PEN NEEDLE) 32 gauge x ndle Use one needle for each dose. 7/day. lancets (FREESTYLE LANCETS) 28 gauge misc Test blood sugar four times daily 250.00 Zn Feyqvnd-Cgwpyqhhdhr-Smk (AMERIGEL) gel Apply 1 application to affected [...] increased walkingdaily. Report low blood sugar to stave grader when he sees her on Friday. Will fax note to Dr Ko. 1 month recheck BP and weight loss. Yas Murray APRN.CNS Medical Decision Making: Problems: Low: Stable chronic illness Moderate: 1+ chronic illnesses with change Risk: Moderate: Drug management Medical Decision Making Level: 4 - Moderate documented in this encounterKindred [facility]03-03-2023 History of Present illness Narrative* Kristal Sullivan [...] 2 % ointment alcohol swabs padm Insulin [place], Disposable, (BD ULTRA-FINE CAROL PEN NEEDLE) 32 gauge x 5/32 ndle Zn Lvulnwi-Vhdyglodbpd-Dtl (AMERIGEL) gel lancets (FREESTYLE LANCETS) 28 gauge [...] <130/80 Kristal Sullivan MD documented in this encounterKindred [facility]01-31-2023 Miscellaneous Notes* Telephone Encounter - Minnie Zuñiga [...] are elevated, this could be from the intermediate manager effects of diabetes. We have to keep monitoring them. Regards, Kristal Sullivan MD documented in this [facility]01-31-2023 Miscellaneous Notes* Telephone Encounter - Minnie Zuñiga [...] Regards, Kristal Sullivan MD documented in this encounterKindred [facility]01-27-2023 Miscellaneous Notes* Telephone Encounter - Tayla Yuan [...] the Adipex order. Patient is currently at [facility]. Please review and advise, Kitty Fang RN documented in this encounterKindred Hospital [facility]01-27-2023 History of Present illness Narrative* Kristal Sullivan [...] sob, and or edema. Exercise: Recently started [place] program. Planning on doing it 3 times [...] hypofunction Pain in joint, lower leg 03/13/2006 [employer] Palpitations Proteinuria Type I (juvenile type) [...] 2 % ointment alcohol swabs padm Insulin [place], Disposable, (BD ULTRA-FINE CAROL PEN NEEDLE) 32 gauge x 5/32 ndle Zn Npvaglt-Mcbbhflzcss-Nfu (AMERIGEL) gel lancets (FREESTYLE LANCETS) 28 gauge [...] request of records from Dr. Camilo his stave grader - HEMOGLOBIN A1C (POC) - COMP METABOLIC [...] TABLET Kristal Sullivan MD documented in this encounterKindred [facility]11-06-2020 History of Present illness Narrative* Mirella Martinez [...] Freestyle Cielo device and was notified of agency recruiter recommendations to remove device during x-ray. Due to cost pt declined and device was shielded during exam with a lead shield. RADIOLOGY DEPARTMENT: General X-ray: Exam(s) Completed: Lower Extremity X- Ray(s): Foot, Right and Wt. Bearing: PERIPHERAL IV DATA: Not applicable SIGNED BY: RT Sana February 04, 2020 3:24 PM documented in this [facility]Kind[facility] note Author Siva Drew [facility] Note Date/Time July 20, 2024 4:[address] [facility] Medical Records Department [address] [place] [address] Anesthesia Postop Eval I 07/20/241653 MR#: [id number] Acct: [id number] Name: LAURIE GONZALES Rep #:[id number] : 1980 43 From: Siva Drew CRNA PCP: Dr. Kristal Sullivan MD Status:REG S DC Y Race: C Location: [place] [address] Anesthesia: Postop Eval I Current Vital Signs [...] CRNA Cosigner Signature: Date CC: ~ Signed [facility] Work Phone: Consult note Author Ira Singh [facility] Note Date/Time August 11, 2024 3:16p m [facility] Medical Records Department [address] [place] [address] Counseling Note - Pharmacy 08/11/24 1516 MR#: [id number] Acct: [id number] Name: LAURIE GONZALES Rep #:[id number] : 1980 44 From: Ira Singh PCP: Dr. Kristal Sullivan MD Status:ADM I NO Y Location: [place] [address] Pharmacy ID Med Reconciliation Pharmacy Service has performed discharge medication reconciliation for this patient. The patient's discharge medication list was reviewed for discrepancies and discrepancies were resolved. Medications at Discharge Home Medications blood sugar diagnostic (FreeStyle Lite Strips) #100 ea 10/08/21 lancing device with lancets kit (Optimal Technologies Plus Lancing Device kit) #100 ea 11/26/21 [...] #50 ea 03/30/24 blood-glucose meter,continuous (Dexcom G6 Salesperson Books) #1 ea 04/01/24 insulin pump cart,auto,BT,G6/7 (Omnipod [...] Signature (if applicable): Date CC: ~ Signed [facility] Work Phone: Consult note Author Jakob Patricia [facility] Note Date/Time August 31, 2024 11:[address] [facility] Medical Records Department [address] [place] [address] Pre-Anesthesia Evaluation 08/31/24 1056 MR#: [id number] Acct: [id number] Name: LAURIE GONZALES Rep #:[id number] : 1980 44 From: Jakob Patricia PCP: Dr. Kristal Sullivan MD Status:REG S DC Y Race: C Location: [place] [address] ASA Classification* ASA Classification ASA Classification: 3 [...] COAG PT 14.7 SECONDS (11.7-14.9) 08/23/24 02:09 05/26/ 25 Pre-Assessment Diagnosis/Proposed Procedure Planned Operative Procedure(s): EGD Anesthesia History Anesthesia History - web site administrator: Anesthesia History - web site administrator Hx Hospitalization Yes: 07/2024 BLOOD INFECTION/ 08/30/24 10:[address] [facility] TO [facility] Any Problems With Anesthesia No 08/30/24 10:31 [...] take am of surgery PONV PONV - web site administrator: PONV - web site administrator Female No 08/30/24 10:31 HX of Motion [...] 08/31/24 10:38 Respiratory Assessment Respiratory Assessment - web site administrator: Respiratory Tract Infection Hx - web site administrator Hx Respiratory Tract Infection No 08/30/24 10:31 STOP Sleep Apnea STOP Sleep Apnea - web site administrator: STOP Sleep Apnea - web site administrator Hx Hypertension Yes: CONTROLLED WITH MED 08/30/24 [...] Tobacco Use History Tobacco Use History - web site administrator: Tobacco Use History - web site administrator Tobacco Use Non-smoker 06/30/24 15:56 Smoking Status Never smoker 08/30/24 10:31 Hx Tobacco Use No 08/30/24 10:31 Years Smoking Packs Smoked per Day Smoking Cessation Date was within the last 15 years Hx Smoking Cessation Date Hx Smoking Cessation Counseling Hematologic Medial History Hematologic Hx - web site administrator: Hematologic Medical Hx - health consultant Hx of Blood Transfusion No 08/30/24 10:31 [...] confused, unrespo /Reproduction History /Reproductive History - web site administrator: /Reproductive Hx- web site administrator Hx Now No 08/30/24 10:31 Gestational Age [...] Rx 5/32 (BD Ultra-Fine Carol Pen Needle) blood-glucose,environmental department manager,cont #1 ea 04/01/24 Unknown Rx (Dexcom G6 Salesperson Books) insulin pump cart,auto,BT,G6/7 #30 ea 04/01/24 Unknown [...] Date Shaun Thompson MD CC: ~ Signed [facility] Work Phone: Consult note Author Jakob Patricia [facility] Note Date/Time August 31, 2024 11:[address] [facility] Medical Records Department [address] [place] [address] Anesthesia Postop Eval I 08/31/24 1131 MR#: [id number] Acct: [id number] Name: LAURIE GONZALES Rep #:[id number] : 1980 44 From: Jakob Patricia PCP: Dr. Kristal Sullivan MD Status:REG S DC Y Race: C Location: [place] [address] Anesthesia: Postop Eval I Current Vital Signs [...] Jakob Rodriguez Signature: Date CC: ~ Signed [facility] Work Phone: Discharge summary Author Nelly Gross [facility] July 03, 2023 12:52pm Note Date/Time July 03, 2023 12:5 2pm [facility] Medical Records Department [address] [place] [address] Instructions for Home/Discharge Instructions 07/03/23 1251 MR#: [id number] Acct: [id number] Name: LAURIE GONZALES Rep #:[id number] : 1980 42 From: Nelly Gross MD [...] 6RF Rx Instructions: 3x/day (DME) Dexcom G6 Salesperson Books Misc See Rx Instructions .Route Qty: 1 [...] 10 days (DME) lancing device with lancets [OneTouch Delica [...] MD; Dr. Louis Koehler MD ~ Signed [facility] Work Phone: Discharge summary Author [facility] July 03, 2023 1:51pm Note Date/Time July 03, 2023 12:5 2pm [facility] Medical Records Department [address] [place] [address] Discharge Summary 07/03/23 1252 MR#: [id number] Acct: [id number] Name: LAURIE GONZALES Rep #:[id number] : 1980 42 From: Nelly Gross MD PCP: Dr. Kristal Sullivan MD Status:ADM I N [facility] Date of Admission: 07/01/23 Date of [...] #100 ea 10/08/21 blood-glucose meter,continuous (Dexcom G6 Salesperson Books) #1 ea 10/08/21 lancing device with lancets kit (Optimal Technologies Plus Lancing Device kit) #100 ea 11/26/21 [...] for about 3 days. He admitted to [facility]. He had been diagnosed with CKD about [...] % (Auto) 54.4, Lymph % (Auto) 27.4, Ballard% (Auto) 11.9 H, Eos % (Auto) 5.0, [...] 6RF Rx Instructions: 3x/day (DME) Dexcom G6 Salesperson Books Misc See Rx Instructions .Route Qty: 1 [...] 10 days (DME) lancing device with lancets [Travel and Learning Enterprisesuch Delica Plus Lanc Dev] Kit See Rx [...] Self Care Charges/Coding Visit Charges Inpatient E&M: 47519 Disch Hosp >30min 07/03/23 1351 <Electronically signed by Nelly Gross MD> Cosigner Signature (if applicable): CC: Dr. Kristal Sullivan MD; Dr. Nelly Gross MD~ Signed [facility] Work Phone: Discharge summary Author Garrison Valadez [facility] Note Date/Time July 20, 2024 4:4 5pm [facility] Medical Records Department [address] [place] [address] Instructions for Home/Discharge Instructions 07/20/24 1640 MR#: [id number] Acct: [id number] Name: LAURIE GONZALES Rep #:[id number] : 1980 43 From: Garrison Valadez MD [...] Care Provider: Kristal Sullivan Instructions Print Language: Cuban Discharge Orders/Prescriptions Prescriptions: New oxycodone 5 mg [...] 1RF Rx Instructions: tid (DME) Dexcom G6 Salesperson Books Misc See Rx Instructions .Route Qty: 1 [...] CC: Dr. Kristal Sullivan MD ~ Signed [facility] Work Phone: Discharge summary Author Louis Koehler [facility] Note Date/Time August 11, 2024 2:53p m [facility] Medical Records Department [address] [facility] [place] [address] Discharge Summary 08/11/24 1440 MR#: [id number] Acct: [id number] Name: LAURIE GONZALES Rep #:[id number] : 1980 44 From: Louis Ricketts PCP: Dr. Kristal Sullivan MD Status:ADM I NO Location: [place] [address] Providers Date of Admission: 08/10/24 Date of [...] front sharpin nature along with nausea. Last KS in December 2023 that required stent in LAD. By the time patient came to ED chest pain had subsided. Denies family history of KS at young age 3. ACS ruled out. [...] block, RBBB and LAFB. ED physiciandiscussed with box car bracer Dr. Lio Cross and he reviewed his previous cardiac cath in December 2023 which showed small vessel disease not amenable to intervention. 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 Discussed with the box car bracer Dr. Garcia who reported that stress and he said patient cango home. No acute KS. Patient is being discharged. 2. Essential hypertension: [...] On Friday. Patient is being dialyzed today. User Experience Researcher consulted. On sevelamer 5. History of chronic [...] ea 10/08/21 lancing device with lancets kit (Datavail Delica Plus Lancing Device kit) #100 ea [...] (BD Insulin Syringe Ultra- Fine) #100 ea 12/31/24 pen needle, diabetic 32 gauge x 5/32 (BD Ultra-Fine Carol Pen Needle) #50 ea 03/30/24 blood-glucose meter,continuous (Dexcom G6 Salesperson Books) #1 ea 04/01/24 insulin pump cart,auto,BT,G6/7 (Omnipod [...] had 1 stent in LAD during last KS in December 2023 Physical exam: General: Alert, [...] (Auto) 77.5 H, Lymph % (Auto) 12.1L, Ballard % (Auto) 8.3, Eos % (Auto) 1.0, [...] (Auto) 75.1 H, Lymph % (Auto) 13.4L, Ballard % (Auto) 9.6, Eos % (Auto) 0.8, [...] IMPRESSION: No acute cardiopulmonary abnormality. Reading Location: [id number] Chest CTA 08/10/24 21:35 IMPRESSION: No evidence of pulmonary embolism or acute findings in the thorax. 6.5 x 4.7 cm right hepatic lobe mass. Differential considerations include a hemangioma. Recommend further evaluation with CT or MRI liver protocol. Reading Location: [facility] D/[facility] Instructions Discharge Diet: Low fat / [...] 1RF Rx Instructions: tid (DME) Dexcom G6 Salesperson Books Misc See Rx Instructions .Route Qty: 1 [...] Self Care Charges/Coding Visit Charges Inpatient E&M: 83717 Disch Hosp >30min 08/11/24 1453 <Electronically signed by Louis Koehler MD> Cosigner Signature (if applicable): CC: Dr. Kristal Sullivan MD; Dr. Daisy Diaz MD; Dr. Louis Koehler MD~ Signed [facility] Work Phone: Discharge summary Author Laurie Duboisne [facility] Note Date/Time August 23, 2024 8:18a m [facility] Medical Records Department [address] [place] [address] Emergency Department Summary 08/23/24 MR#: [id number] Acct: [id number] Name: LAURIE GONZALES Rep #:[id number] : 1980 44 From: Laurie Thrasher PCP: [...] easily flops onto the bed without pain. [facility] Medical History Elevated troponin Insulin dependent diabetes [...] x #50 ea 03/30/24 Unknow n Rx 32 (BD Ultra-Fine Carol Pen Needle) blood-glucose,environmental department manager,cont #1 ea 04/01/24 Unknown Rx (Dexcom G6 Salesperson Books) insulin pump cart,auto,BT,G6/7 #30 ea 04/01/24 Unknown [...] were ordered. I am told by nursing drapery supervisor that we do not have dialysis coverage on Friday. He is due for dialysis tomorrow. He will need to be transferred. Family would like me to try [facility] as they work in [place] and would be easier for them. Unfortunately they do not have any bed availability. I spoke with the patient and his family regarding other options that [facility] including [facility] versus pia. Theywould like me to try [facility]. I spoke with [facility] and the patient has been accepted. [...] 93.6 H Lymph % (Auto) 1.4 L Ballard % (Auto) 3.2 Eos % (Auto) 0.0 [...] Clarity Clear Urine pH 7.0 Ur Specific [place] 1.010 Urine Protein 500 H Urine Glucose [...] No evidence of acute disease. Reading Location: [facility] EKG Initial EKG: Attestation: I personally reviewed and interpreted this EKG as follows: Comments: Sinus tachycardia ventricular rate of 126 bpm Management Discussion w/another healthcare provider: Photolithographic Stripper (Dr Mejia ([facility])) Discharge Plan Triage Chief Complaint: Fever Other [...] (Reason: nausea/vomiting) (DME) lancing device with lancets [Travel and Learning Enterprisesuch DelBirdbox Plus Lanc Dev] Kit See Rx Instructions [...] 1RF Rx Instructions: tid (DME) Dexcom G6 Salesperson Books Misc See Rx Instructions .Route Qty: 1 [...] MD [Primary Care Provider] - Print Language: Cuban Disposition Disposition: Acute Care Hospital Discharge Location: [facility] What to do if you have Problems For any increased pain, shortness of breath, bleeding, nausea or vomiting, chestpain, or any unexpected problems, contact your Primary Care Provider. Call [facility] ([phone]) or report to the closest Emergency Room. Call 911 if necessary. 08/23/24 0818 <Electronically signed by Laurie Elizalde DO> Cosigner Signature (if applicable): CC: Dr. Kristal Sullivan MD ~ Signed [facility] Work Phone: Discharge summary Author Ford Patricia [facility] Note Date/Time October 19, 2024 3:11 am [facility] Medical Records Department [address] [place] [address] Emergency Department Summary 10/19/24 MR#: [id number] Acct: [id number] Name: LAURIE GONZALES Rep #:[id number] : 1980 44 From: Ford Patricia DO PCP: Dr. Kristal Sullivan MD Status:PRE E R Location: ED HPI History of Present Illness Chief Complaint: General Illness Narrative Narrative: Patient is a 44-year-old male with past medical history of hypertension, diabetes, end-stage renal disease on dialysis Friday, Friday, and Fridaywho presented to the emergency department with concern of shortness of breath and not feeling well overall. Patient states that he did miss his dialysis session today as he states that he was not feeling well. Patient notesthat yesterday he went to [employer] worked out and noted that his glucose was running high to the point where the meter was not reading the sugar level. He states that he continuously gave himself 10 units of insulin for a total of 120 units and attempts to keep himself out of DKA. Patient notes that today hissugars have been well but notes that he also has had nausea vomiting denies any sick contacts. He states that if he tries to lay down he feels very short of breath. Patient notes that he is not normally on oxygen which she is on here inthe emergency department [facility] Medical History Bloodstream infection Hypertension High cholesterol [...] kit #100 ea 11/26/21 Unkno wn Rx (Datavail DelBirdbox Plus Lancing Device kit) pen needle, diabetic 32 gauge x #150 ea 02/26/22 Unkno wn Rx (BD Ultra-Fine Carol Pen Needle) aspirin 81 mg tablet,delayed 81 mg PO BREAKFAST #90 ta bs 02/25/24 08/30/24 Rx release clopidogrel 75 mg tablet 75 mg PO DAILY #90 tabs 01/3008/30/24 Rx rosuvastatin 10 mg tablet 10 mg PO DAILY #90 tabs 01/3008/10/24 Rx insulin syringe-needle U-100 0.3 #100 ea 03/30/24 Unkn own Rx mL 31 gauge x 5/16 (BD Insulin Syringe Ultra-Fine) pen needle, diabetic 32 gauge x #50 ea 03/30/24 Unknow n Rx (BD Ultra-Fine Carol Pen Needle) blood-glucose,environmental department manager,cont #1 ea 04/01/24 Unknown Rx (Dexcom G6 Salesperson Books) sevelamer carbonate 800 mg tablet 800 mg [...] DAILY #9 0 tabs 08/11/24 08/10/24 Rx insulin aspart U-100 100 unit/mL 80 unit (0.8 mL) cont inuous 08/20/24 Unknown Rx subcutaneous solution (Novolog subcutaneous infusion . continuous U-100 Insulin aspart) #72 mL carvedilol 25 mg tablet 25 mg PO QDAY 09/07/24 Unkno wn History pantoprazole 40 mg tablet,delayed 40 mg PO BID #180 ta bs 09/07/24 Unknown Rx release insulin pump cart,auto,BT,G6/7 #30 ea 09/27/24 Unknown Rx (Omnipod 5 G6-G7 Pods (Gen 5) subcutaneous cartridge) Allergy/AdvReac Type Severity Reaction Status Date / Time No Known Allergies Allergy Verified 09/07/24 13:08 Family History Mother Diabetes Thyroid disorder Grandmother Diabetes Grandfather Diabetes Surgical History Hx of surgical procedure History of cardiac catheterization Hx of surgical procedure History of coronary artery stent placement History of surgery on lower extremity Social History Smoking Status: Never smoker alcohol intake: never substance use type: does not use ROS ROS ED ROS Narrative Constitutional: Complains of chills denies fevers, headache Eyes: Denies double vision blurry vision Cardiovascular: Denies chest pain Respiratory: Complains of shortness of breath as noted above as well as cough Abdomen: Complains of nausea vomiting denies any abdominal pain : Denies any urinary symptoms Neurological: Complains of generalized weakness Musculoskeletal: Denies back pain Skin: Denies any rashes or lesions EXAM Physical Exam Narrative Exam Narrative: General: Patient is lying in bed rest comfortably did not appear to be acute distress Head: Atraumatic, normocephalic Eyes: PERRL bilaterally, EOMI bilateral, no conjunctival injection noted Neck: Soft, supple, trachea midline Cardiovascular: Regular rate and rhythm no murmurs gallops rubs noted Respiratory: Clear to auscultation bilaterally Abdomen: Soft, nondistended, nontender to palpation Extremities: +5/5 strength noted in the bilateral upper and lower extremities Neurological: Patient following commands knew that he was at [facility] the year is 2024 Skin: Warm, dry, intact no rashes or lesions noted Const Vital Signs: 10/19/24 01:31 10/19/24 01:36 10/19/24 01:37 Temperature 100.1 F H 100.1 F H Temperature Source Oral Oral Pulse Rate 99 100 Respiratory Rate 24 H 24 H Respiratory Pattern Tachypnea Blood Pressure 128/75 H 128/75 H Blood Pressure Mean 92 92 Pulse Ox 87 93 Oxygen Delivery Method Room Air Nasal Cannula Oxygen Flow Rate (L/min) 2 10/19/24 01:48 10/19/24 02:39 Temperature 99.9 F H Temperature Source Oral Pulse Rate 99 Respiratory Rate 20 H Respiratory Pattern Blood Pressure 108/70 Blood Pressure Mean 82 Pulse Ox 94 97 Oxygen Delivery Method Room Air Nasal Cannula Oxygen Flow Rate (L/min) 2 Sepsis Attestation Sepsis Organ Dysfunction Criteria Present: Creatinine > 2.0 mg/dL MDM MDM MDM Narrative Medical decision making narrative: Patient is a 44-year-old male who presented to the emergency department the chief complaint of nausea vomiting not feeling well with hyperglycemia and shortness of breath. On the differential diagnose includes but not limited to ACS, pneumonia, pneumothorax, UTI, DKA. Once workup is obtained and reviewed hewill be reevaluated. Patient will not be given 30 cc/kg of IV fluids as there is concern for hypervolemic state therefore he will be given 1 L of IV fluids which was ordered at 1:47 AM. Patient was noted to be febrile here in the emergency department he will be given a gram of Tylenol. Patient CBC was reviewed was significant for leukocytosis of 19,000, hemoglobin 10.8, white count of 269. Patient INR normal at 1, PT of 13.5. Patient's venous blood gas showed a pH of 7.41. Patient sodium normal 135, potassium normal 4.8, CO2 level low at 20.6, anion gap of 22, creatinine was 9.78 and a BUN of 104. Patient glucose was 118. Patient's AST and ALT were 95 and 23 respectively. Patient's beta-hydroxybutyrate was 0.9. Patient's urinalysis pending. Patient's chest x- ray was reviewed which showed bilateral lung opacities which could represent asymmetric edema as well as pneumonia. Patient was ordered 2 g Rocephin and azithromycin at 2:37 AM. Patient's EKG reviewed showed sinus rhythm rate of 98 bpm. Reperfusion assessment performed at 2:50 AM and patient remains normotensive therefore no vasopressors indicated. At this point time we will discuss case with hospitalist for admission. Discussed case with admitting physician Dr. Naik who accept patient for admission. Patient notified is agreeable to plan all course concerns answered. Lab Data Labs: Laboratory Results - last 24 hr 10/19/24 10/19/24 01:33 01:42 WBC 19.1 H RBC 3.52 L Hgb 10.8 L Hct 31.3 L MCV 88.9 MCH 30.7 MCHC 34.5 RDW Std Deviation 46.5 H RDW Coeff of Marcella 14.5 Plt Count 269 MPV 9.4 Immature Gran % (Auto) 0.500 Neut % (Auto) 87.1 H Lymph % (Auto) 5.9 L Ballard % (Auto) 5.3 Eos % (Auto) 0.7 Baso % (Auto) 0.5 Absolute Neuts (auto) 16.7 H Absolute Lymphs (auto) 1.13 Nucleated RBC % 0 PT 13.5 INR 1.0 APTT 25.3 Sodium 135 Potassium 4.8 Chloride 93 L Carbon Dioxide 20.6 L Anion Gap 22 H BUN 104 H* Creatinine 9.78 H* Estim Creat Clear Calc 11.30 L Est GFR (MDRD) Non-Af 6 L BUN/Creatinine Ratio 10.6 Glucose 118 H Lactic Acid 1.1 Calcium 10.1 Total Bilirubin 0.35 AST 95 H ALT 23 Alkaline Phosphatase 78 Total Protein 6.9 Albumin 4.4 Globulin 2.5 Albumin/Globulin Ratio 1.8 b-Hydroxybutyric mmol/L 0.9 H POC Glucose 112 H ABG Data ABG results: ABG 10/19/24 02:42 Specimen Type ARMANI Sample Site Not entered O2 % 2.0 VBG pH 7.41 VBG pO2 23 L VBG HCO3 24 VBG Total CO2 25 VBG O2 Sat (Calc) 41 L VBG Base Excess -1 POC Mix VBG pCO2 Pt Tmp 37.4 L O2 Delivery Device Cannula Radiography Diagnostic Testing: Clinical Impression(s) from Imaging Studies Chest X-Ray 10/19/24 02:10 IMPRESSION: Bilateral lung opacities could represent asymmetric edema as well as pneumonia. Advise correlation. Reading Location: [place] [address] Discharge Plan Triage Chief Complaint: General Illness ED Provider: Ford Patricia Dx/Rx/DC Orders Clinical Impression: Acute hypoxemic respiratory failure, DM type 1 (diabetes mellitus, type 1), Hypertension, Missed dialysis, Pneumonia Prescriptions: No Action (DME) FreeStyle Lite Strips Strip See Rx Instructions .Route Qty: 100 6RF Rx Instructions: 3x/day clopidogrel 75 mg tablet 75 mg PO DAILY Qty: 90 3RF aspirin [...] release 12 hr 1 tab PO Q12H PRN (Reason: sinus symptoms) carvedilol 25 mg tablet 25 mg PO QDAY Rx Instructions: must administer with a meal/food pantoprazole 40 mg tablet,delayed release (DR/EC) 40 mg PO BID Qty: 180 1RF Rx Instructions: take 30 minutes before breakfast and dinner amlodipine 5 mg tablet 10 mg PO DAILY Qty: 90 3RF (DME) lancing device with lancets [Datavail Delica Plus Lanc Dev] Kit See Rx [...] 1RF Rx Instructions: tid (DME) Dexcom G6 Salesperson Books Misc See Rx Instructions .Route Qty: 1 [...] continuous subcutaneous infusion .continuous Qty: 72 1RF (DME) Omnipod 5 G6-G7 Pods (Gen 5) Cartridge See Rx Instructions .Route Qty: 30 1RF Rx Instructions: change every 3 days Primary Care Provider: Kristal Sullivan Referrals: Kristal Sullivan MD [Primary Care Provider] - Print Language: Cuban Disposition Disposition: Acute Care Hospital [facility] What to do if you have Problems For any increased pain, shortness of breath, bleeding, nausea or vomiting, chestpain, or any unexpected problems, contact your Primary Care Provider. Call [facility] ([phone]) or report to the closest Emergency Room. Call 911 if necessary. 10/19/24 0311 <Electronically signed by Ford Patricia DO> Cosigner Signature (if applicable): CC: Dr. Kristal Sullivan MD ~ Signed [facility] Work Phone: Evaluation + Plan note No data available for this section [facility] Evaluation note* Diagnosis Onset Date Resolution Status CKD (chronic kidney disease) chronic Diabetes chronic Hypertension chronic Obesity [facility] Work Phone: Evaluation note* Diagnosis Onset Date Resolution Status Diabetes chronic Hypertension chronic Microalbuminuria chronic Obesity chronic Vitamin D deficiency [facility] Work Phone: Evaluation note* Diagnosis Type 1 diabetes mellitus with hyperosmolarity without coma (HCC)- Primary Gastroesophageal reflux disease without esophagitis Esophageal reflux Essential hypertension Unspecified essential hypertension Class 1 obesity with serious comorbidity in adult, unspecified BMI, unspecified obesity type [facility] Diagnosis Type 1 diabetes mellitus with hyperosmolarity without coma (HCC) Mixed hyperlipidemia [facility] Diagnosis Class 1 obesity with serious comorbidity in adult, unspecified BMI, unspecified obesity type- Primary Special screening examination for viral disease Special screening examination for unspecified viral disease Screening for HIV (human immunodeficiency virus) Special screening examination for other specified viral diseases Essential hypertension Unspecified essential hypertension [facility] Diagnosis Class 1 obesity with serious comorbidity in adult, unspecified BMI, unspecified obesity type- Primary Type 1 diabetes mellitus with other specified complication (HCC) Low blood sugar Hypoglycemia, unspecified [facility] Diagnosis Onset Date Resolution Status Diabetes mellitus type 1 chr onic Hyperlipidemia chronic Hypertension chronic Insulin pump titration chron ic Microalbuminuria chronic Obesity chronic Presence of insulin pump chr onic Stage 4 chronic kidney disease [facility] Work Phone: Evaluation note* Diagnosis Onset [...] 1 chr onic Hypertension chronic Obesity chronic [facility] Work Phone: Evaluation note* Diagnosis Onset [...] chronic Stage 4 chronic kidney disease chronic [facility] Work Phone: Evaluation note* Diagnosis Onset Date Resolution Status Hyperlipidemia chronic Insulin pump titration chron ic Microalbuminuria chronic Presence of insulin pump chr onic Dyspnea on exertion resolved Volume overload resolved [facility] Work Phone: Evaluation note* Diagnosis Pre-transplant evaluation for kidney and pancreas transplant- Primary Other specified pre-operative examination Chronic renal failure, stage 4 (severe) ([facility] Diagnosis Pre-transplant evaluation for kidney transplant- Primary Other specified pre-operative examination [facility] Diagnosis Onset Date Resolution Status Hyperlipidemia chronic Insulin pump titration chron ic Microalbuminuria chronic Presence of insulin pump chr onic CKD (chronic kidney disease) chronic Dyspnea on exertion resolved Volume overload resolved CKD (chronic kidney disease) [facility] Work Phone: Evaluation note* Diagnosis Pre-transplant evaluation for kidney and pancreas transplant- Primary Other specified pre-operative examination [facility] Diagnosis Pre-transplant evaluation for kidney transplant- Primary Other specified pre-operative examination [facility] Diagnosis Awaiting organ transplant status- Primary [facility] Diagnosis Encounter for other preprocedural examination- Primary CKD (chronic kidney disease) stage 5, GFR less than 15 ml/min ([facility]) Chronic kidney disease, Stage V Pre-transplant evaluation for CKD (chronic kidney disease) Other specified pre-operative examination Diabetic nephropathy associated with type 1 diabetes mellitus ([facility]) [facility] Diagnosis Pre-transplant evaluation for kidney transplant- Primary Other specified pre-operative examination [facility]* Diagnosis Chronic renal failure, stage 4 (severe) ([facility]) Pre-transplant evaluation for kidney and pancreas transplant Other specified pre-operative examination documented in this encounter [facility] note* Diagnosis ESRD on dialysis ([facility])- Primary End stage renal disease Type 1 DM with end-stage renal disease ([facility]) Type I (juvenile type) diabetes mellitus with renal manifestations, not stated as uncontrolled documented in this encounter [facility] note* Diagnosis Brittle diabetes (HCC)- Primary Type [...] of right foot documented in this encounter [facility] note* Diagnosis Brittle diabetes (HCC)- Primary Type [...] other preprocedural examination documented in this encounter [facility] note* Diagnosis Brittle diabetes (HCC)- Primary Type [...] other preprocedural examination documented in this encounter [facility] note* Diagnosis Brittle diabetes (HCC)- Primary Type [...] complication (HCC)- Primary documented in this encounter [facility] note* Diagnosis Brittle diabetes (HCC)- Primary Type [...] (pediatric) Essential (primary) hypertension Unspecified essential hypertension long term (current) use of insulin (HCC) Pruritus Unspecified pruritic disorder Dependence on renal dialysis ([facility]) Renal dialysis status End stage renal disease ([facility]) End stage renal disease documented in this encounter [facility] note* Diagnosis MSSA bacteremia- Primary History of myocardial infarction Vitreous floaters, unspecified laterality History of myocardial infarction Complication associated with dialysis catheter Sepsis due to methicillin susceptible Staphylococcus aureus (MSSA) without acute organ dysfunction ([facility]/HCC) ([facility]) documented in this encounter [facility] note* Diagnosis Brittle diabetes (HCC)- [...] diabetes mellitus with hyperosmolarity without coma (HCC) Essential hypertension Unspecified essential hypertension Mixed hyperlipidemia Esophageal stricture Stricture and stenosis of esophagus Anemia in stage 5 chronic kidney disease, not on chronic dialysis (HCC) Chronic kidney disease, stage 5 ([facility]) Dependence on renal dialysis Renal dialysis status Screening for depression Encounter for screening examination for other mental health and behavioral disorders Encounter for immunization Need for other specified prophylactic vaccination against single bacterial disease [facility] Diagnosis Brittle diabetes (HCC)- Primary Type [...] specified pre-operative examination [facility] Diagnosis Brittle diabetes (HCC)- Primary Type [...] of both eyes, macular edema presence unspecified Organ transplant candidate Awaiting organ transplant status ESRD on dialysis ([facility]) End stage renal disease Pre-transplant evaluation for ESRD (end stage renal disease) Other specified pre-operative examination Pre-operative cardiovascular examination [facility]* Diagnosis Brittle diabetes ([facility])- Primary Type II or unspecified type diabetes [...] of both eyes, macular edema presence unspecified Organ transplant candidate- Primary Awaiting organ transplant status ESRD on dialysis ([facility]) End stage renal disease Pre-transplant evaluation for ESRD (end stage renal disease) Other specified pre-operative examination Pre-operative cardiovascular examination [facility]* Diagnosis Brittle diabetes ([facility])- Primary Type II or unspecified type diabetes [...] specified pre-operative examination [facility]* Diagnosis Brittle diabetes ([facility])- Primary Type II or unspecified type diabetes [...] kidney transplant- Primary Other specified pre-operative examination ESRD on dialysis (HCC) End stage renal disease Pre-transplant evaluation for ESRD (end stage renal disease) Other specified pre-operative examination [facility]* Diagnosis Brittle diabetes ([facility])- Primary Type II or unspecified type diabetes [...] kidney transplant- Primary Other specified pre-operative examination ESRD on dialysis ([facility]) End stage renal disease Pre-transplant evaluation for ESRD (end stage renal disease) Other specified pre-operative examination [facility]* Diagnosis Brittle diabetes ([facility])- Primary Type II or unspecified type diabetes [...] of both eyes, macular edema presence unspecified Organ transplant candidate Awaiting organ transplant status ESRD on dialysis ([facility]) End stage renal disease Pre-transplant evaluation for ESRD (end stage renal disease) Other specified pre-operative examination Pre-operative cardiovascular examination [facility]* Diagnosis Brittle diabetes ([facility])- Primary Type II or unspecified type diabetes [...] of both eyes, macular edema presence unspecified ESRD on dialysis (HCC)- Primary End stage renal disease Pre-transplant evaluation for ESRD (end stage renal disease) Other specified pre-operative examination End stage renal disease on dialysis due to type 1 diabetes mellitus (HCC) [facility] Author Louis Koehler [facility] July 01, 2023 6:30pm Note Date/Time July 01, 2023 6:28 pm [facility] Medical Records Department [address] [place] [address] H&P Exam - Hospitalist 07/01/23 1803 MR#: [id number] Acct: [id number] Name: LAURIE GONZALES Rep #:[id number] : 1980 42 From: Louis Ricketts PCP: [...] and discussed in detail in assessment plan [facility] Medical History Abscess Charcot foot due to diabetes mellitus Diabetes mellitus type 1 Insulin pump titration Obesity Presence of insulin pump Type 1 diabetes mellitus Home Medications blood sugar diagnostic (FreeStyle Lite Strips) #100 ea 10/08/21 [Rx Last Taken Unknown] blood-glucose meter,continuous (Dexcom G6 Salesperson Books) #1 ea 10/08/21 [Rx Last Taken Unknown] lancing device with lancets kit (Datavail DelBirdbox Plus Lancing Device kit) #100 ea 11/26/21 [...] 77.8 H, Lymph % (Auto) 11.7 L, Ballard % (Auto) 8.3, Eos % (Auto) 1.3, [...] urinary bladder. Kidneys and bladder ultrasound ordered. User Experience Researcher consulted 3. Type 1 diabetes mellitus with history of diabetic retinopathy: From medical records since patient follows stave grader Kendra Pierce. On insulin pump. If insulin [...] Patient does not have dilated power of divorce attorney forhealth after discussion of benefits/risks procedures involved with full code, DNR CC arrest and DNR CC, the patient opted for full code. Patient does want artificial life support including intubation, tube feed, ventilator and/chest compression, central venous catheter, vasopressor and DC shock if needed Total time spent in [id number] encounter in discussion of advanced directive 17 minutes. Laboratory Results 07/01/23 13:14: WBC 10.9, RBC 3.64 L, Hgb 9.9 L, Hct 30.0 L, MCV 82.4, MCH 27.2,MCHC 33.0, RDW Std Deviation 40.4, RDW Coeff of Marcella 13.4, Plt Count 329, MPV 9.3, Immature Gran % (Auto) 0.300, Neut % (Auto) 77.8 H, Lymph % (Auto) 11.7 L, Ballard % (Auto) 8.3, Eos % (Auto) 1.3, [...] Neeraj Brown MD at 13:41 EDT , Charges/Coding Visit Charges Inpatient E&M: 41682 Init Hosp L3 Procedures Hospitalists Procedures: 83101 Advncd Care Plan 30 Min 07/01/23 1830 <Electronically signed by Louis Koehler MD> Cosigner Signature (if applicable): CC: Dr. Kristal Sullivan MD; Dr. Luois Koehler MD~ Signed [facility] Work Phone: History and physical note Author Bao Friend [facility] Note Date/Time August 31, 2024 11:06 am [facility] Medical Records Department [address] [place] [address] History & Physical Exam 08/31/24 1105 MR#: [id number] Acct: [id number] Name: LAURIE GONZALES Rep #:[id number] : 1980 44 From: Bao Angulo DO PCP: Dr. Kristal Sullivan MD Status:REG S DC Location: [place] [address] HPI - General General Date of Admission: [...] Rx 5/32 (BD Ultra-Fine Carol Pen Needle) blood-glucose,environmental department manager,cont #1 ea 04/01/24 Unknown Rx (Dexcom G6 Salesperson Books) insulin pump cart,auto,BT,G6/7 #30 ea 04/01/24 Unknown [...] approval to hold prior to EGD. Note: [employer] speech recognition associate professor of philosophy software was used to create portions of this document. Sound-alike and misspelled words, as well as other associate professor of philosophy errors may be contained in the documentation. Patient Instructions: Esophagram EGD 08/31/24 1106 <Electronically signed by Bao Angulo DO> Cosigner Signature (if applicable): CC: Dr. Kristal Sullivan MD; Bao Angulo DO~ Signed [facility] Work Phone: History and physical note Author Chava Naik [facility] Note Date/Time October 19, 2024 3:37 am [facility] Medical Records Department [address] [place] [address] History & Physical Exam 10/19/24 0330 MR#: [id number] Acct: [id number] Name: LAURIE GONZALES Rep #:[id number] : 1980 44 From: Chava Naik MD PCP: Dr. Kristal Sullivan MD Status:ADM I N Location: [place] [address] HPI - General General Date of Admission: 10/19/24 Date of Service: 10/19/24 Chief Complaint: Shortness of breath HPI Narrative ALURIE GONZALES, is a 44 M who presents to the emergency room with chief complaint of shortness of breath and generalized illness. Patient has significant past medical history of diabetes, hypertension, end-stage renal disease on dialysis Friday and Friday by Dr. Diaz. Patientstates that he was feeling nauseous and as if he were in DKA and therefore he was not able to attend dialysis earlier yesterday. When he went to [employer] [facility] yesterday he noticed that his sugar was high above the meters ability toread and again with self 10 units of insulin for a total of 120 units in his attempt to keep himself out of DKA but despite that he continued to have nausea and vomiting. He denies any sick contacts. He states now when he lays down he feels very short of breath and that he requires oxygen here in the emergency room to maintain his oxygen saturation above 90%. Patient has elevated white blood cell count with a left shift and chest x-ray reveals possible pneumonia. Patient will be admitted placed on Rocephin and azithromycin and nephrology consulted for dialysis. [facility] Medical History Bloodstream infection Hypertension High cholesterol [...] mg PO DAILY #90 tabs 01/3008/30/24 Rx rosuvastatin 10 mg tablet 10 mg PO DAILY #90 tabs 01/3008/10/24 Rx insulin syringe-needle U-100 0.3 #100 ea 03/30/24 Unkn own Rx mL 31 gauge x 5/16 (BD Insulin Syringe Ultra-Fine) pen needle, diabetic 32 gauge x #50 ea 03/30/24 Unknow n Rx 32 (BD Ultra-Fine Carol Pen Needle) blood-glucose,environmental department manager,cont #1 ea 04/01/24 Unknown Rx (Dexcom G6 [employer]person Books) sevelamer carbonate 800 mg tablet 800 mg PO DAILY 05/3008/10/24 History blood-glucose sensor (Dexcom G6 #9 ea 07/23/24 Unknown Rx Sensor device) blood-glucose transmitter (Dexcom #1 ea 07/23/24 Unkno wn Rx G6 Transmitter device) cholecalciferol (vitamin D3) 50 150 mcg PO DAILY 07/2808/09/24 History mcg (2,000 unit) capsule amlodipine 5 mg tablet 10 mg (2 x 5 mg) PO DAILY #9 0 tabs 08/11/24 08/10/24 Rx insulin aspart U-100 100 unit/mL 80 unit (0.8 mL) cont inuous 08/20/24 Unknown Rx subcutaneous solution (Novolog subcutaneous infusion . continuous U-100 Insulin aspart) #72 mL carvedilol 25 mg tablet 25 mg PO QDAY 09/07/24 Unkno wn History pantoprazole 40 mg tablet,delayed 40 mg PO BID #180 ta bs 09/07/24 Unknown Rx release insulin pump cart,auto,BT,G6/7 #30 ea 09/27/24 Unknown Rx (Omnipod 5 G6-G7 Pods (Gen 5) subcutaneous cartridge) Allergy/AdvReac Type Severity Reaction Status Date / Time No Known Allergies Allergy Verified 09/07/24 13:08 Family History Mother Diabetes Thyroid disorder Grandmother Diabetes Grandfather Diabetes Surgical History Hx of surgical procedure History of cardiac catheterization Hx of surgical procedure History of coronary artery stent placement History of surgery on lower extremity Social History Smoking Status: Never smoker alcohol intake: never substance use type: does not use ROS Constitutional Constitutional: Reports chills, fever(s) and weakness Eyes Eyes: Denies blurry vision ENT HEENT: Denies abnormal hearing Cardiovascular Cardiovascular: Denies chest pain Respiratory/Chest Respiratory/Chest: Reports cough and shortness of breath at rest Gastrointestinal Gastrointestinal: Reports nausea and vomiting; Denies abdominal pain Genitourinary Genitourinary: Denies dysuria Musculoskeletal Musculoskeletal: Denies back pain Integumentary Integumentary: Reports dry skin Neurologic Neurologic: Denies abnormal gait or confusion Psychiatric Psychiatric: Denies anxiety Vital Signs Vital Signs Vital Signs: 10/19/24 01:31 10/19/24 01:36 10/19/24 01:37 Temperature 100.1 F H 100.1 F H Temperature Source Oral Oral Pulse Rate 99 100 Respiratory Rate 24 H 24 H Respiratory Pattern Tachypnea Blood Pressure 128/75 H 128/75 H Blood Pressure Mean 92 92 Pulse Ox 87 93 Oxygen Delivery Method Room Air Nasal Cannula Oxygen Flow Rate (L/min) 2 10/19/24 01:48 10/19/24 02:39 10/19/24 03:16 Temperature 99.9 F H 100.1 F H Temperature Source Oral Oral Pulse Rate 99 98 Respiratory Rate 20 H 21 H Respiratory Pattern Blood Pressure 108/70 99/56 L Blood Pressure Mean 82 70 Pulse Ox 94 97 94 Oxygen Delivery Method Room Air Nasal Cannula Nasal Cannula Oxygen Flow Rate (L/min) 2 2 10/19/24 03:16 Temperature 100.1 F H Temperature Source Pulse Rate 98 Respiratory Rate 21 H Respiratory Pattern Blood Pressure 99/56 L Blood Pressure Mean 70 Pulse Ox 94 Oxygen Delivery Method Oxygen Flow Rate (L/min) Weight Weight: 205 lb 14.588 oz Body Mass Index (BMI) 28.8 Physical Exam Const alert and oriented x3 General Appearance: cooperative and well developed HEENT normocephalic and head/scalp atraumatic Eyes PERRL Neck no lymphadenopathy Lymph Lymphatic: no lymphadenopathy noted Resp normal air movement and clear to auscultation bilaterally Effort and Inspection: tachypneic Auscultation: Negative for rales, rhonchi or wheezes Cardio regular rate, regular rhythm, S1 normal heart sound and S2 normal heart sound GI normal to inspection, nondistended, normoactive bowel sounds Extremity normal capillary refill Skin General Skin Exam: turgor normal Neuro no focal motor deficits and no sensory deficits noted Psych thought process normal, cooperative and affect normal Results Lab / Micro Data 10/19/24 01:42 10/19/24 01:42 Labs: Laboratory Results - last 24 hr 10/19/24 01:33: POC Glucose 112 H 10/19/24 01:42: WBC 19.1 H, RBC 3.52 L, Hgb 10.8 L, Hct 31.3 L, MCV 88.9, MCH 30.7, MCHC 34.5, RDW Std Deviation 46.5 H, RDW Coeff of Marcella 14.5, Plt Count 269,MPV 9.4, Immature Gran % (Auto) 0.500, Neut % (Auto) 87.1 H, Lymph % (Auto) 5.9 L, Ballard % (Auto) 5.3, Eos % (Auto) 0.7, Baso % (Auto) 0.5, Absolute Neuts (auto)16.7 H, Absolute Lymphs (auto) 1.13, Nucleated RBC % 0, PT 13.5, INR 1.0, APTT 25.3, Sodium 135, Potassium 4.8, Chloride 93 L, Carbon Dioxide 20.6 L, Anion Gap22 H, BUN 104 H*, Creatinine 9.78 H*, Estim Creat Clear Calc 11.30 L, Est GFR (MDRD) Non-Af 6 L, BUN/Creatinine Ratio 10.6, Glucose 118 H, Lactic Acid 1.1, Calcium 10.1, Total Bilirubin 0.35, AST 95 H, ALT 23, Alkaline Phosphatase 78, Total Protein 6.9, Albumin 4.4, Globulin 2.5, Albumin/Globulin Ratio 1.8, b-Hydroxybutyric mmol/L 0.9 H 10/19/24 02:36: Urine Color Straw, Urine Clarity Clear, Urine pH 6.0, Ur Specific Cromwell 1.015, Urine Protein 100 H, Urine Glucose (UA) 100 H, Urine Ketones Negative, Urine Occult Blood 150 H, Urine Nitrite Negative, Urine Bilirubin Negative, Urine Urobilinogen Normal, Ur Leukocyte Esterase Negative, Urine RBC 0-5 SEEN, Urine WBC 0-5 SEEN, Ur Squamous Epith Cells 0-5 SEEN, Ur Transition Epith Cell 0-5 SEEN, Urine Bacteria 1+, Urine Mucus 0 SEEN ABG Data ABG results: ABG 10/19/24 02:42 Specimen Type ARMANI Sample Site Not entered O2 % 2.0 VBG pH 7.41 VBG pO2 23 L VBG HCO3 24 VBG Total CO2 25 VBG O2 Sat (Calc) 41 L VBG Base Excess -1 POC Mix VBG pCO2 Pt Tmp 37.4 L O2 Delivery Device Cannula Imaging Radiology Impression Chest X-Ray 10/19/24 02:10 IMPRESSION: Bilateral lung opacities could represent asymmetric edema as well as pneumonia. Advise correlation. Reading Location: [place] [address] Assessment & Plan Assessment/Plan (1) Pneumonia: (2) Missed dialysis: (3) Acute hypoxemic respiratory failure: (4) DM type 1 (diabetes mellitus, type 1): QUALIFIERS: Diabetes mellitus complication status: with unspecified complications Qualified Code(s): E10.8 - Type 1 diabetes mellitus with unspecified complications (5) Hypertension: QUALIFIERS: Hypertension type: unspecified Qualified Code(s): I10- Essential (primary) hypertension PLAN: Plan 1 acute hypoxic respiratory failure secondary to pneumonia?admit patient to progressive care unit, oxygen and supportive care to maintain SpO2 greater than 90%, continue Rocephin and azithromycin initiated in the emergency room, albuterol inhalation treatment every 4 hours as needed. 2. End-stage renal disease?patient missed dialysis yesterday we will consult nephrology Dr. Diaz as patient is known to him to arrange for dialysis 3. Diabetes type 1?continue routine insulin regimen 4. Hypertension?continue routine home medication 5. DVT prophylaxis?SCDs Charges/Coding Visit Charges Inpatient E&M: 77066 Init Hosp L2 10/19/24 0336 <Electronically signed by Chava Naik MD> Cosigner Signature (if applicable): CC: Dr. Kristal Sullivan MD; Dr. Chava Naik MD~ Signed [facility] Work Phone: Hospital Discharge instructions No data available for this section [facility] Hospital Discharge instructions* Attachments The following attachments cannot be sent through Care Everywhere. * Hemodialysis (Cuban) * Fever, Adult ED (Cuban) documented in this [facility]Progress note No data available for this section [facility] Progress note Author Kalina [facility] Note Date/Time September 07, 2024 1:38 pm [facility] [address] [place] [address] OFFICE VISIT Date of Service: 09/07/24 MR#: [id number] Acct: [id number] Name: LAURIE GONZALES Rep #: [id number] : 1980 Provider: RAVINDER Payne Age/Sex: 44/M [place] [email or web address] Status: Signed Intake Vital Signs 08/17/24 14:47 [...] 1 Month f/u Chief Complaint: f/u diabetes Charge Account Identification Clerk Required: No Accompanied by: self Is patient in pain?: No Allergies No Known Allergies Allergy (Verified 09/07/24 13:08) Medications ?Medication ?Instructions ?Recorded ?Confirmed ?Type blood sugar diagnostic (FreeStyle #100 ea 10/08/2101/22 Rx Lite Strips) lancing device with lancets kit #100 ea 11/26/2109/07 Rx ([employer]Touch Delica Plus Lancing Device kit) pen needle, [...] insulin syringe-needle U-100 0.3 #100 ea 03/30/2408/29 Rx mL 31 gauge x 5/16 (BD Insulin Syringe Ultra-Fine) pen needle, diabetic 32 gauge x #50 ea 03/30/24 Rx 5/32 (BD Ultra-Fine Carol Pen Needle) blood-glucose,environmental department manager,cont #1 ea 04/01/24 09/07/24 Rx (Dexcom G6 [employer]) insulin pump cart,auto,BT,G6/7 #30 ea 04/01/24 5 [...] well nourished Orientation: alert and oriented x3 [facility] Head: normocephalic Ears: hearing grossly normal bilaterally [...] weeks and we will repeat EGD. Note: [employer] speech recognition associate professor of philosophy software was used to create portions of this document. Sound-alike and misspelled words, as well as other associate professor of philosophy errors may be contained in the documentation. [...] Cosigner Signature: Date (if applicable) CC: ~ [facility] [employer] Work Phone: Reason for referral (narrative)* Diagnostic Procedure Only (Routine) - Pending Review Specialty Diagnoses / Procedures Referred By Contnevaeh t Referred To Contact MOLECULAR & FUNCTIONAL IMAGING Diagnoses Encounter for other preprocedural examination Procedures NM CARDIAC PERF STRESS/PHARM MYOCARDIAL SPECT MULTIPLE STUDIES Ronen Eldridge MD [address] [place] [address] Molecular & Functional Imaging [address] [place] [address] Referral ID Status Reason Start Date Expiration Date Visits Requested Visits Authorized [id number] Pending Review Auto-Generat ed Referral 08/28/2023 09/26/2024 1 1 [facility] for referral (narrative)* Diagnostic Procedure Only (Routine) - Pending Review Specialty Diagnoses / Procedures Referred By Contac t Referred To Contact MOLECULAR & FUNCTIONAL IMAGING Diagnoses Encounter for other preprocedural examination Procedures NM CARDIAC PERF STRESS/PHARM MYOCARDIAL SPECT MULTIPLE STUDIES Ronen Eldridge MD [address] [place] [address] Molecular & Functional Imaging [address] [place], [place] [id number] Referral ID Status Reason Start Date Expiration Date Visits Requested Visits Authorized [id number] Pending Review Auto-Genera sharan Referral Patient Cleared - Admin/Chair man/Directo r advise to proceed or did not respond 4 03/11/2025 3 3 [facility] for referral (narrative)No reason for referral information [facility] Work Phone: [facility] Narrative* Diagnostic Procedure Only (Routine) - Pending Review Specialty Diagnoses / Procedures Referred By Martyac t Referred To Contact MOLECULAR & FUNCTIONAL IMAGING Diagnoses Encounter for other preprocedural examination Procedures NM CARDIAC PERF STRESS/PHARM MYOCARDIAL SPECT MULTIPLE STUDIES Ronen Eldridge MD [address] [place] [address] Molecular & Functional Imaging [address] [place], [place] [id number] Referral ID Status Reason Start Date Expiration Date Visits Requested Visits Authorized [id number] Pending Review Auto-Genera sharan Referral Patient Cleared - Admin/Chair man/Directo r advise to proceed or did not respond 4 03/11/2025 3 3 [facility] for visit Narrative* Auth/Cert (Routine) Specialty Diagnoses / Procedures Referred By Contac t Referred To Contact Diagnoses History of myocardial infarction sepsis Procedures . Maria Luz Trujillo MD [address] [place] [address] Phone: tel: fax: [facility] Post Inter[facility] [address] [place] [address] Phone: tel: Referral ID Status Reason Start Date Expiration Date Visits Re quested Visits Authorized [id number] 1 1 [facility] for visit Narrative* Transplant (Routine) - Authorized Specialty Diagnoses / Procedures Referred By Erika rodriguez Referred To Contact TRANSPLANT Diagnoses Organ transplant candidate ESRD on dialysis (HCC) Pre-transplant evaluation for ESRD (end stage renal disease) Pre-operative cardiovascular examination Procedures CONSULT TO TRANSPLANT CENTER OFFICE/OUTPATIENT NEW HIGH MDM 60 MINUTES CHEST X-RAY, FRONT&LAT ECG ROUTINE ECG W/LEAST 12 LDS TRCG ONLY W/O I&R CT ANGIOGRAPHY CHEST W/CONTRAST/NONCONTRAST CT ABDOMEN W & W/O CONTRAST Ronen Eldridge MD [address] [place] [address] Phone: tel: fax: [facility] [address] [place] [address] Phone: tel: Referral ID Status Reason Start Date Expiration Date Visits Requested Visits Authorized [id number] Authorized Financial Clearance Required - OON Payor Patient Cleared - INN Insurance Found 10/12/2024 10/12/2029 99 [phone] [facility] for visit Narrative* Transplant (Routine) - Authorized Specialty Diagnoses / Procedures Referred By Erika rodriguez Referred To Contact TRANSPLANT Diagnoses Organ transplant candidate ESRD on dialysis (HCC) Pre-transplant evaluation for ESRD (end stage renal disease) Pre-operative cardiovascular examination Procedures OFFICE/OUTPATIENT NEW HIGH MDM 60 MINUTES CHEST X-RAY, FRONT&LAT ECG ROUTINE ECG W/LEAST 12 LDS TRCG ONLY W/O I&R CT ANGIOGRAPHY CHEST W/CONTRAST/NONCONTRAST CT ABDOMEN W & W/O CONTRAST Ronen Eldridge MD [address] [place] [address] Phone: tel: fax: [facility] [address] [place] [address] Phone: tel: Referral ID Status Reason Start Date Expiration Date Visits Requested Visits Authorized [id number] Authorized Financial Clearance Required - OON Payor Patient Cleared - INN Insurance Found 10/12/2024 10/12/2029 99 [phone] [facility] Chief Complaint and Reason for Visit Chief [...] kidney disease) Chief Complaint Admit Date S/P WC 01/30February 25, 2024 9:03am 5 M FU, [...] 12:54pm Discuss AV Fistula Dialysis Graft Scan [facility] 2024 11:17am LEFT FOREARM T82.590A July [...] 12:54pm Discuss AV Fistula Dialysis Graft Scan [facility] 2024 11:17am LEFT FOREARM T82.590A July [...] Discuss AV Fistula Dialysis Graft Scan [facility] 2024 11:17am LEFT FOREARM T82.590A July 07, [...] 12:54pm Discuss AV Fistula Dialysis Graft Scan [facility] 2024 11:17am LEFT FOREARM T82.590A July [...] 4pm DYSPHAGIA September 16, 2024 8:08 am Chief Complaint Admit Date LEFT FOREARM T82.590A July 07, 2024 6: [...] 4pm DYSPHAGIA September 16, 2024 8:08 am N,V October 19, 2024 3:30 am PNEUMONIA, HYPOXIC RESPIRATORY FAILURE, END-STAGE October 19, 2024 3:37am Reason for Visit Admit Date DM type 1 (diabetes mellitus, type 1) [...] Erosive esophagitis September 07, 2024 12:4 4pm Acute hypoxemic respiratory failure October 19, 2024 3:37am Missed dialysis October 19, 2024 3:37 am Pneumonia October 19, 2024 3:37 am DM type 1 (diabetes mellitus, type 1) Ju ly 2024 3:37am Hypertension October 19, 2024 3:37 am Chief Complaint Admit Date LEFT FOREARM T82.590A July 07, 2024 6: [...] 4pm DYSPHAGIA September 16, 2024 8:08 am N,V October 19, 2024 3:30 am PNEUMONIA, HYPOXIC RESPIRATORY FAILURE, END-STAGE October 19, 2024 3:37am PNEUMONIA, HYPOXIC RESPIRATORY FAILURE, END-STAGE October 20, 2024 12:13am Reason for Visit Admit Date DM type 1 (diabetes mellitus, type 1) [...] Erosive esophagitis September 07, 2024 12:4 4pm Acute hypoxemic respiratory failure October 19, 2024 3:37am ESRD (end stage renal disease) on dialys is October 19, 2024 3:37am Missed dialysis October 19, 2024 3:37 am Pneumonia October 19, 2024 3:37 am DM type 1 (diabetes mellitus, type 1) Ju ly 2024 3:37am Hypertension October 19, 2024 3:37 am Advance Directives No Advanced Directives Records Found Advance Directive Response Recorded Date/ Time Advance Directives No November 12:01am Living Will No March 28, 2 020 11:08am Power of Babbitter No March 28, 2020 11:08am Advance Directive Response Recorded Date/ Time Advance Directives No November 12:01am Living Will No November 02, 2021 5:11pm Power of Babbitter No November 02 5:11pm Advance Directive Response Recorded Date/ Time Advance Directives No May 10:41am Living Will No May 13 024 10:41am Power of Babbitter No May 13, 2023 10:41am Advance Directive Response Recorded Date/ Time Advance Directives No May 11:41am Living Will No July 01, 2023 1:19pm Power of Babbitter No June 30 1:19pm Advance Directive Response Recorded Date/ Time Advance Directives No May 11:41am Living Will No July 01, 2023 7:29pm Power of Babbitter No June 30 7:29pm Advance Directive Response Recorded Date/ Time Advance Directives No May 11:41am Living Will No August 01, 2023 7: 35am Power of Babbitter No August 01, 2023 7:35am Advance Directive Response Recorded Date/ Time Living Will No April 20 11:30am Do you have a Healthcare Power of Babbitter? No April 20, 2024 11:30am Advance Directives No January 5:03pm Advance Directive Response Recorded Date/ Time Living Will No April 20 11:30am Do you have a Healthcare Power of Babbitter? No April 20, 2024 11:30am Living Will No July 07, 2024 7:22am Do you have a Healthcare Power of Babbitter? No July 07, 2024 7:22am Advance Directives No July 07 7:22am Advance Directive Response Recorded Date/ Time Living Will No July 16, 2024 2:53pm Do you have a Healthcare Power of Babbitter? No July 16, 2024 2:53pm Living Will No April 20 11:30am Do you have a Healthcare Power of Babbitter? No April 20, 2024 11:30am Living Will No July 07, 2024 7:22am Do you have a Healthcare Power of Babbitter? No July 07, 2024 7:22am Advance Directives No July 07 7:22am Advance Directive Response Recorded Date/ Time Living Will No July 16, 2024 2:53pm Do you have a Healthcare Power of Babbitter? No July 16, 2024 2:53pm Do you have a Healthcare Power of Babbitter? No August 10, 2024 7:49pm Living Will No April 20 11:30am Do you have a Healthcare Power of Babbitter? No April 20, 2024 11:30am Living Will No July 07, 2024 7:22am Do you have a Healthcare Power of Babbitter? No July 07, 2024 7:22am Advance Directives No July 07 7:22am Advance Directive Response Recorded Date/ Time Living Will No July 16, 2024 2:53pm Do you have a Healthcare Power of Babbitter? No July 16, 2024 2:53pm Do you have a Healthcare Power of Babbitter? No August 11, 2024 12:24am Living Will No April 20 11:30am Do you have a Healthcare Power of Babbitter? No April 20, 2024 11:30am Living Will No July 07, 2024 7:22am Do you have a Healthcare Power of Babbitter? No July 07, 2024 7:22am Advance Directives No July 07 7:22am Advance Directive Response Recorded Date/ Time Living Will No July 16, 2024 2:53pm Do you have a Healthcare Power of Babbitter? No July 16, 2024 2:53pm Do you have a Healthcare Power of Babbitter? No August 11, 2024 12:24am Do you have a Healthcare Power of Babbitter? No August 23, 2024 2:13am Living Will No July 07, 2024 7:22am Do you have a Healthcare Power of Babbitter? No July 07, 2024 7:22am Advance Directives No July 07 7:22am Date Activated Date Inactivated Comments 08/23/2024 11:56 AM 08/28/2024 4:27 PM Advance Directive Response Recorded Date/ Time Living Will No July 16, 2024 2:53pm Do you have a Healthcare Power of Babbitter? No July 16, 2024 2:53pm Do you have a Healthcare Power of Babbitter? No August 11, 2024 12:24am Do you have a Healthcare Power of Babbitter? No August 30, 2024 10:31am Do you have a Healthcare Power of Babbitter? No August 23, 2024 2:13am Living Will No July 07, 2024 7:22am Do you have a Healthcare Power of Babbitter? No July 07, 2024 7:22am Advance Directives No July 07 7:22am Advance Directive Response Recorded Date/ Time Living Will No July 16, 2024 2:53pm Do you have a Healthcare Power of Babbitter? No July 16, 2024 2:53pm Do you have a Healthcare Power of Babbitter? No August 11, 2024 12:24am Do you have a Healthcare Power of Babbitter? No August 30, 2024 10:31am Do you have a Healthcare Power of Babbitter? No August 23, 2024 2:13am Do you have a Healthcare Power of Babbitter? No October 19, 2024 1:37am Living Will No July 07, 2024 7:22am Do you have a Healthcare Power of Babbitter? No July 07, 2024 7:22am Advance Directives No July 07 7:22am Advance Directive Response Recorded Date/ Time Living Will No July 16, 2024 2:53pm Do you have a Healthcare Power of Babbitter? No July 16, 2024 2:53pm Do you have a Healthcare Power of Babbitter? No August 11, 2024 12:24am Do you have a Healthcare Power of Babbitter? No August 30, 2024 10:31am Do you have a Healthcare Power of Babbitter? No August 23, 2024 2:13am Do you have a Healthcare Power of Babbitter? No October 19, 2024 4:20am Living Will No July 07, 2024 7:22am Do you have a Healthcare Power of Babbitter? 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 Procedures CT ABD/PEL WO IVCON CT ABD & PELVIS W/O CONTRAST Kim Chung PA-C [address] [place] [address] [place] [address] Referral ID Status Reason Start Date Expiration Date Visits Requested Visits Authorized [id number] Pending Review Auto-Generat ed Referral 08/07/2023 08/29/2024 1 1 Referral ID Status Reason Start Date Expiration Date V isits Requested Visits Authorized [id number] Closed Auto-Generated Referral Patient Cleared - INN [...] or prosecute any alcohol or drug abuse patient.[facility] the event this information is protected by the Federal Confidentiality of Alcohol and Drug Abuse Patient Records regulations: The Federal rules restrict any use of the information to criminally investigate or prosecute any alcohol or drug abuse patient.[facility] the event this information is protected by the Federal Confidentiality of Alcohol and Drug Abuse Patient Records regulations: The Federal rules restrict any use of the information to criminally investigate or prosecute any alcohol or drug abuse patient.[facility] the event this information is protected by the Federal Confidentiality of Alcohol and Drug Abuse Patient Records regulations: The Federal rules restrict any use of the information to criminally investigate or prosecute any alcohol or drug abuse patient.[facility] the event this information is protected by the Federal Confidentiality of Alcohol and Drug Abuse Patient Records regulations: The Federal rules restrict any use of the information to criminally investigate or prosecute any alcohol or drug abuse patient.[facility] the event this information is protected by the Federal Confidentiality of Alcohol and Drug Abuse Patient Records regulations: The Federal rules restrict any use of the information to criminally investigate or prosecute any alcohol or drug abuse patient.[facility] the event this information is protected by the Federal Confidentiality of Alcohol and Drug Abuse Patient Records regulations: The Federal rules restrict any use of the information to criminally investigate or prosecute any alcohol or drug abuse patient.[facility]ima[facility] the event this information is protected by the Federal Confidentiality of Alcohol and Drug Abuse Patient Records regulations: The Federal rules restrict any use of the information to criminally investigate or prosecute any alcohol or drug abuse patient.[facility]ima[facility] the event this information is protected by the Federal Confidentiality of Alcohol and Drug Abuse Patient Records regulations: The Federal rules restrict any use of the information to criminally investigate or prosecute any alcohol or drug abuse patient.[facility]ima[facility] the event this information is protected by the Federal Confidentiality of Alcohol and Drug Abuse Patient Records regulations: The Federal rules restrict any use of the information to criminally investigate or prosecute any alcohol or drug abuse patient.[facility]ima[facility] the event this information is protected by the Federal Confidentiality of Alcohol and Drug Abuse Patient Records regulations: The Federal rules restrict any use of the information to criminally investigate or prosecute any alcohol or drug abuse patient.[facility]ima[facility] the event this information is protected by the Federal Confidentiality of Alcohol and Drug Abuse Patient Records regulations: The Federal rules restrict any use of the information to criminally investigate or prosecute any alcohol or drug abuse patient.[facility]ima[facility] the event this information is protected by the Federal Confidentiality of Alcohol and Drug Abuse Patient Records regulations: The Federal rules restrict any use of the information to criminally investigate or prosecute any alcohol or drug abuse patient.[facility]ima[facility] the event this information is protected by the Federal Confidentiality of Alcohol and Drug Abuse Patient Records regulations: The Federal rules restrict any use of the information to criminally investigate or prosecute any alcohol or drug abuse patient.[facility]ima[facility] the event this information is protected by the Federal Confidentiality of Alcohol and Drug Abuse Patient Records regulations: The Federal rules restrict any use of the information to criminally investigate or prosecute any alcohol or drug abuse patient.[facility]ima[facility] the event this information is protected by the Federal Confidentiality of Alcohol and Drug Abuse Patient Records regulations: The Federal rules restrict any use of the information to criminally investigate or prosecute any alcohol or drug abuse patient.[facility]ima[facility] the event this information is protected by the Federal Confidentiality of Alcohol and Drug Abuse Patient Records regulations: The Federal rules restrict any use of the information to criminally investigate or prosecute any alcohol or drug abuse patient.[facility]imaIn the event this information is protected by the Federal Confidentiality of Alcohol and Drug Abuse Patient Records regulations: The Federal rules restrict any use of the information to criminally investigate or prosecute any alcohol or drug abuse patient.[facility]imaIn the event this information is protected by the Federal Confidentiality of Alcohol and Drug Abuse Patient Records regulations: The Federal rules restrict any use of the information to criminally investigate or prosecute any alcohol or drug abuse patient.[facility] LimaIn the event this information is protected by the Federal Confidentiality of Alcohol and Drug Abuse Patient Records regulations: The Federal rules restrict any use of the information to criminally investigate or prosecute any alcohol or drug abuse patient.[facility] LimaIn the event this information is protected by the Federal Confidentiality of Alcohol and Drug Abuse Patient Records regulations: The Federal rules restrict any use of the information to criminally investigate or prosecute any alcohol or drug abuse patient.[facility]imaIn the event this information is protected by the Federal Confidentiality of Alcohol and Drug Abuse Patient Records regulations: The Federal rules restrict any use of the information to criminally investigate or prosecute any alcohol or drug abuse patient.[facility]imaIn the event this information is protected by the Federal Confidentiality of Alcohol and Drug Abuse Patient Records regulations: The Federal rules restrict any use of the information to criminally investigate or prosecute any alcohol or drug abuse patient.[facility] LimaIn the event this information is protected by the Federal Confidentiality of Alcohol and Drug Abuse Patient Records regulations: The Federal rules restrict any use of the information to criminally investigate or prosecute any alcohol or drug abuse patient.[facility] LimaIn the event this information is protected by the Federal Confidentiality of Alcohol and Drug Abuse Patient Records regulations: The Federal rules restrict any use of the information to criminally investigate or prosecute any alcohol or drug abuse patient.[facility] LimaIn the event this information is protected by the Federal Confidentiality of Alcohol and Drug Abuse Patient Records regulations: The Federal rules restrict any use of the information to criminally investigate or prosecute any alcohol or drug abuse patient.[facility]imaIn the event this information is protected by the Federal Confidentiality of Alcohol and Drug Abuse Patient Records regulations: The Federal rules restrict any use of the information to criminally investigate or prosecute any alcohol or drug abuse patient.[facility]imaIn the event this information is protected by the Federal Confidentiality of Alcohol and Drug Abuse Patient Records regulations: The Federal rules restrict any use of the information to criminally investigate or prosecute any alcohol or drug abuse patient.[facility] LimaIn the event this information is protected by the Federal Confidentiality of Alcohol and Drug Abuse Patient Records regulations: The Federal rules restrict any use of the information to criminally investigate or prosecute any alcohol or drug abuse patient.[facility]imaIn the event this information is protected by the Federal Confidentiality of Alcohol and Drug Abuse Patient Records regulations: The Federal rules restrict any use of the information to criminally investigate or prosecute any alcohol or drug abuse patient.[facility] LimaIn the event this information is protected by the Federal Confidentiality of Alcohol and Drug Abuse Patient Records regulations: The Federal rules restrict any use of the information to criminally investigate or prosecute any alcohol or drug abuse patient.[facility]imaIn the event this information is protected by the Federal Confidentiality of Alcohol and Drug Abuse Patient Records regulations: The Federal rules restrict any use of the information to criminally investigate or prosecute any alcohol or drug abuse patient.[facility]imaIn the event this information is protected by the Federal Confidentiality of Alcohol and Drug Abuse Patient Records regulations: The Federal rules restrict any use of the information to criminally investigate or prosecute any alcohol or drug abuse patient.[facility]imaIn the event this information is protected by the Federal Confidentiality of Alcohol and Drug Abuse Patient Records regulations: The Federal rules restrict any use of the information to criminally investigate or prosecute any alcohol or drug abuse patient.[facility]imaIn the event this information is protected by the Federal Confidentiality of Alcohol and Drug Abuse Patient Records regulations: The Federal rules restrict any use of the information to criminally investigate or prosecute any alcohol or drug abuse patient.[facility]imaIn the event this information is protected by the Federal Confidentiality of Alcohol and Drug Abuse Patient Records regulations: The Federal rules restrict any use of the information to criminally investigate or prosecute any alcohol or drug abuse patient.[facility]imaIn the event this information is protected by the Federal Confidentiality of Alcohol and Drug Abuse Patient Records regulations: The Federal rules restrict any use of the information to criminally investigate or prosecute any alcohol or drug abuse patient.[facility]imaIn the event this information is protected by the Federal Confidentiality of Alcohol and Drug Abuse Patient Records regulations: The Federal rules restrict any use of the information to criminally investigate or prosecute any alcohol or drug abuse patient.[facility]imaIn the event this information is protected by the Federal Confidentiality of Alcohol and Drug Abuse Patient Records regulations: The Federal rules restrict any use of the information to criminally investigate or prosecute any alcohol or drug abuse patient.[facility]imaIn the event this information is protected by the Federal Confidentiality of Alcohol and Drug Abuse Patient Records regulations: The Federal rules restrict any use of the information to criminally investigate or prosecute any alcohol or drug abuse patient.[facility]imaIn the event this information is protected by the Federal Confidentiality of Alcohol and Drug Abuse Patient Records regulations: The Federal rules restrict any use of the information to criminally investigate or prosecute any alcohol or drug abuse patient.[facility]imaIn the event this information is protected by the Federal Confidentiality of Alcohol and Drug Abuse Patient Records regulations: The Federal rules restrict any use of the information to criminally investigate or prosecute any alcohol or drug abuse patient.[facility]imaIn the event this information is protected by the Federal Confidentiality of Alcohol and Drug Abuse Patient Records regulations: The Federal rules restrict any use of the information to criminally investigate or prosecute any alcohol or drug abuse patient.[facility]imaIn the event this information is protected by the Federal Confidentiality of Alcohol and Drug Abuse Patient Records regulations: The Federal rules restrict any use of the information to criminally investigate or prosecute any alcohol or drug abuse patient.[facility]imaIn the event this information is protected by the Federal Confidentiality of Alcohol and Drug Abuse Patient Records regulations: The Federal rules restrict any use of the information to criminally investigate or prosecute any alcohol or drug abuse patient.[facility]imaIn the event this information is protected by the Federal Confidentiality of Alcohol and Drug Abuse Patient Records regulations: The Federal rules restrict any use of the information to criminally investigate or prosecute any alcohol or drug abuse patient.[facility]imaIn the event this information is protected by the Federal Confidentiality of Alcohol and Drug Abuse Patient Records regulations: The Federal rules restrict any use of the information to criminally investigate or prosecute any alcohol or drug abuse patient.[facility]imaIn the event this information is protected by the Federal Confidentiality of Alcohol and Drug Abuse Patient Records regulations: The Federal rules restrict any use of the information to criminally investigate or prosecute any alcohol or drug abuse patient.[facility]imaIn the event this information is protected by the Federal Confidentiality of Alcohol and Drug Abuse Patient Records regulations: The Federal rules restrict any use of the information to criminally investigate or prosecute any alcohol or drug abuse patient.[facility]imaIn the event this information is protected by the Federal Confidentiality of Alcohol and Drug Abuse Patient Records regulations: The Federal rules restrict any use of the information to criminally investigate or prosecute any alcohol or drug abuse patient.[facility]imaIn the event this information is protected by the Federal Confidentiality of Alcohol and Drug Abuse Patient Records regulations: The Federal rules restrict any use of the information to criminally investigate or prosecute any alcohol or drug abuse patient.[facility]imaIn the event this information is protected by the Federal Confidentiality of Alcohol and Drug Abuse Patient Records regulations: The Federal rules restrict any use of the information to criminally investigate or prosecute any alcohol or drug abuse patient.[facility]imaIn the event this information is protected by the Federal Confidentiality of Alcohol and Drug Abuse Patient Records regulations: The Federal rules restrict any use of the information to criminally investigate or prosecute any alcohol or drug abuse patient.[facility]imaIn the event this information is protected by the Federal Confidentiality of Alcohol and Drug Abuse Patient Records regulations: The Federal rules restrict any use of the information to criminally investigate or prosecute any alcohol or drug abuse patient.[facility]imaIn the event this information is protected by the Federal Confidentiality of Alcohol and Drug Abuse Patient Records regulations: The Federal rules restrict any use of the information to criminally investigate or prosecute any alcohol or drug abuse patient.[facility]imaIn the event this information is protected by the Federal Confidentiality of Alcohol and Drug Abuse Patient Records regulations: The Federal rules restrict any use of the information to criminally investigate or prosecute any alcohol or drug abuse patient.[facility]imaIn the event this information is protected by the Federal Confidentiality of Alcohol and Drug Abuse Patient Records regulations: The Federal rules restrict any use of the information to criminally investigate or prosecute any alcohol or drug abuse patient.[facility]imaIn the event this information is protected by the Federal Confidentiality of Alcohol and Drug Abuse Patient Records regulations: The Federal rules restrict any use of the information to criminally investigate or prosecute any alcohol or drug abuse patient.[facility]imaIn the event this information is protected by the Federal Confidentiality of Alcohol and Drug Abuse Patient Records regulations: The Federal rules restrict any use of the information to criminally investigate or prosecute any alcohol or drug abuse patient.[facility]imaIn the event this information is protected by the Federal Confidentiality of Alcohol and Drug Abuse Patient Records regulations: The Federal rules restrict any use of the information to criminally investigate or prosecute any alcohol or drug abuse patient.[facility]imaIn the event this information is protected by the Federal Confidentiality of Alcohol and Drug Abuse Patient Records regulations: The Federal rules restrict any use of the information to criminally investigate or prosecute any alcohol or drug abuse patient.[facility] Care Teams (unrecognized sec tion and content) Angle Shearer Relationship Specialty Start Date End Date Kristal Sullivan MD [address] [place] [address] PCP - General Internal Medicine 11/17/14 Reid Ko MD Foreign Policy Officer Endocrinology 12/08/19 Ried Ko MD Foreign Policy Officer Endocrinology 01/11/20 [facility] 09/14/19 Angle Shearer Relationship Specialty Start Date End Date Kristal Sullivan MD [address] [place] [address] PCP - General Internal Medicine 11/17/14 Reid Ko MD [address] [place] [address] Foreign Policy Officer Endocrinology 12/08/19 Reid Ko MD [address] [place] [address] Foreign Policy Officer Endocrinology 01/11/20 [facility] 09/14/19 Angle Shearer Relationship Specialty Start Date End Date Kristal Sullivan MD [address] [place] [address] PCP - General Internal Medicine 11/17/14 Reid Ko MD [address] [place] [address] Foreign Policy Officer Endocrinology 12/08/19 Reid Ko MD [address] [place] [address] Foreign Policy Officer Endocrinology 01/11/20 [facility] 09/14/19 Angle Shearer Relationship Specialty Start Date End Date Kristal Sullivan MD [address] [place] [address] PCP - General Internal Medicine 11/17/14 Reid Ko MD [address] [place] [address] Foreign Policy Officer Endocrinology 12/08/19 Reid Ko MD [address] [place] [address] Foreign Policy Officer Endocrinology 01/11/20 [facility] 09/14/19 Angle Shearer Relationship Specialty Start Date End Date Kristal Sullivan MD [address] [place] [address] PCP - General Internal Medicine 11/17/14 Reid Ko MD [address] [facility] [place] [address] Foreign Policy Officer Endocrinology 12/08/19 Reid Ko MD [address] [place] [address] Foreign Policy Officer Endocrinology 01/11/20 [facility] 09/14/19 Angle Shearer Relationship Specialty Start Date End Date Kristal Sullivan MD [address] [place] [address] PCP - General Internal Medicine 11/17/14 Reid Ko MD [address] [place] [address] Foreign Policy Officer Endocrinology 12/08/19 Reid Ko MD [address] [place] [address] Foreign Policy Officer Endocrinology 01/11/20 [facility] 09/14/19 Team Status: Active Member Role Status [...] Dr. Nelly Gross MD Attending Provider Active Angle Shearer Relationship Specialty Start Date End Date Kristal Sullivan MD [address] [place] [address] PCP - General Internal Medicine 11/17/14 Reid Ko MD [address] [place] [address] Foreign Policy Officer Endocrinology 12/08/19 Reid Ko MD [address] [place] [address] Foreign Policy Officer Endocrinology 01/11/20 [facility] 09/14/19 Angle Shearer Relationship Specialty Start Date End Date Kristal Sullivan MD [address] [place] [address] PCP - General Internal Medicine 11/17/14 Reid Ko MD [address] [facility], [place] [address] Foreign Policy Officer Endocrinology 12/08/19 Reid Ko MD [address] [place] [address] Foreign Policy Officer Endocrinology 01/11/20 [facility] 09/14/19 Team Status: Inactive Member Role Status [...] Dr. Caleb Vargas MD Attending Provider Active Angle Shearer Relationship Specialty Start Date End Date Kristal Sullivan MD [address] [facility] [address] PCP - General Internal Medicine 11/17/14 Reid Ko MD [address] [place] [address] Foreign Policy Officer Endocrinology 12/08/19 Reid Ko MD [address] [place] [address] Foreign Policy Officer Endocrinology 01/11/20 [facility] 09/14/19 Angle Shearer Relationship Specialty Start Date End Date Kristal Sullivan MD [address] [place] [address] PCP - General Internal Medicine 11/17/14 Reid Ko MD [address] [place] [address] Foreign Policy Officer Endocrinology 12/08/19 Reid Ko MD [address] [facility] [address] Foreign Policy Officer Endocrinology 01/11/20 [facility] 09/14/19 Angle Shearer Relationship Specialty Start Date End Date Kristal Sullivan MD [address] [place] [address] PCP - General Internal Medicine 11/17/14 Reid Ko MD [address] [place] [address] Foreign Policy Officer Endocrinology 12/08/19 Reid Ko MD [address] [place] [address] Foreign Policy Officer Endocrinology 01/11/20 [facility] 09/14/19 Angle Shearer Relationship Specialty Start Date End Date Kristal Sullivan MD [address] [place] [address] PCP - General Internal Medicine 11/17/14 Reid Ko MD [address] [place] [address] Foreign Policy Officer Endocrinology 12/08/19 Reid Ko MD [address] [place] [address] Foreign Policy Officer Endocrinology 01/11/20 [facility] 09/14/19 Angle Shearer Relationship Specialty Start Date End Date Kristal Sullivan MD [address] [place] [address] PCP - General Internal Medicine 11/17/14 Reid Ko MD [address] [place] [address] Foreign Policy Officer Endocrinology 12/08/19 Reid Ko MD [address] [place] [address] Foreign Policy Officer Endocrinology 01/11/20 [facility] 09/14/19 Angle Shearer Relationship Specialty Start Date End Date Kristal Sullivan MD [address] [place] [address] PCP - General Internal Medicine 11/17/14 Reid Ko MD [address] [place] [address] Foreign Policy Officer Endocrinology 12/08/19 Reid Ko MD [address] [facility] [place] [address] Foreign Policy Officer Endocrinology 01/11/20 [facility] 09/14/19 Angle Shearer Relationship Specialty Start Date End Date Kristal Sullivan MD [address] [facility] [place] [address] PCP - General Internal Medicine 11/17/14 Reid Ko MD [address] [facility] [place] [address] Foreign Policy Officer Endocrinology 12/08/19 Reid Ko MD [address] [facility] [place] [address] Foreign Policy Officer Endocrinology 01/11/20 [facility] 09/14/19 Angle Shearer Relationship Specialty Start Date End Date Kristal Sullivan MD [address] [facility] [place] [address] PCP - General Internal Medicine 11/17/14 Reid Ko MD [address] [facility] [place] [address] Foreign Policy Officer Endocrinology 12/08/19 Reid Ko MD [address] [facility] [address] Foreign Policy Officer Endocrinology 01/11/20 [facility] 09/14/19 Angle Shearer Relationship Specialty Start Date End Date Kristal Sullivan MD [address] [facility] [address] PCP - General Internal Medicine 11/17/14 Reid Ko MD [address] [facility] [place] [address] Foreign Policy Officer Endocrinology 12/08/19 Reid Ko MD [address] [facility] [address] Foreign Policy Officer Endocrinology 01/11/20 [facility] 09/14/19 Angle Shearer Relationship Specialty Start Date End Date Kristal Sullivan MD [address] [facility] [address] PCP - General Internal Medicine 11/17/14 Reid Ko MD [address] [facility] [place] [address] Foreign Policy Officer Endocrinology 12/08/19 Reid Ko MD [address] [place] [address] Foreign Policy Officer Endocrinology 01/11/20 [facility] 09/14/19 Angle Shearer Relationship Specialty Start Date End Date Kristal Sullivan MD [address] [facility] [place] [address] PCP - General Internal Medicine 11/17/14 Reid Ko MD [address] [facility] [place] [address] Foreign Policy Officer Endocrinology 12/08/19 Reid Ko MD [address] [facility] [place] [address] Foreign Policy Officer Endocrinology 01/11/20 [facility] 09/14/19 Angle Shearer Relationship Specialty Start Date End Date Kristal Sullivan MD [address] [facility] [place], [place] [address] PCP - General Internal Medicine 11/17/14 Reid Ko MD [address] [facility] [place] [address] Foreign Policy Officer Endocrinology 12/08/19 Reid Ko MD [address] [facility] [address] Foreign Policy Officer Endocrinology 01/11/20 Vicki Samuel PA-C [address] [place] [address] [employer] [facility] 03/07/24 Binta Oneil APRN.CNP [address] [place] [address] [employer] Internal Medicine 03/07/24 Basia Deluna PA-C [address] [facility] [address] [employer] 03/07/24 [facility] 09/14/19 Angle Shearer Relationship Specialty Start Date End Date Kristal Sullivan MD [address] [facility] [place] [address] PCP - General Internal Medicine 11/17/14 Reid Ko MD [address] [place] [address] Foreign Policy Officer Endocrinology 12/08/19 Reid Ko MD [address] [place] [address] Foreign Policy Officer Endocrinology 01/11/20 Vicki Samuel PA-C [address] [place] [address] [employer] [facility] 03/07/24 Binta Oneil APRN.ARM REST BUILDER [address] [place] [address] [employer] Slide Assembler Internal Medicine 03/07/24 Basia Deluna PA-C [address] [place] [address] [facility] 09/14/19 Angle Shearer Relationship Specialty Start Date End Date Kristal Sullivan MD [address] [place] [address] PCP - General Internal Medicine 11/17/14 Reid Ko MD [address] [place] [address] Foreign Policy Officer Endocrinology 12/08/19 Reid Ko MD [address] [place] [address] Foreign Policy Officer Endocrinology 01/11/20 Vicki Samuel PA-C [address] [place] [address] Trombone Slide Assembler Family [facility] 03/07/24 Binta Oneil APRN.ARM REST BUILDER [address] [place] [address] [employer]rombone Slide Assembler Internal Medicine 03/07/24 Basia Deluna PA-C [address] [place] [address] [employer]ide As[facility] 03/07/24 [facility] 09/14/19 Angle Shearer Relationship Specialty Start Date End Date Kristal Sullivan MD [address] [place] [address] PCP - General Internal Medicine 11/17/14 Reid Ko MD [address] [place] [address] Foreign Policy Officer Endocrinology 12/08/19 Reid Ko MD [address] [place] [address] Foreign Policy Officer Endocrinology 01/11/20 Vicki Samuel PA-C [address] [place] [address] [employer]rombone Slide Assembler Family [facility] 03/07/24 Binta Oneil APRN.ARM REST BUILDER [address] [place] [address] Trombone Slide Assembler Internal Medicine 03/07/24 Basia Deluna PA-C [address] [place] [address] [facility] 03/07/24 [facility] 09/14/19 Angle Shearer Relationship Specialty Start Date End Date Kristal Sullivan MD [address] [place] [address] PCP - General Internal Medicine 11/17/14 Reid Ko MD [address] [place], [place] [address] Foreign Policy Officer Endocrinology 12/08/19 Reid Ko MD [address] [place] [address] Foreign Policy Officer Endocrinology 01/11/20 Vicki Samuel PA-C [address] [place] [address] [employer]rom[employer] Slide As[facility]er Family [facility] 03/07/24 Binta Oneil APRN.ARM REST BUILDER [address] [place] [address] [employer] Slide Assembler Internal Medicine 03/07/24 Basia Deluna PA-C [address] [place] [address] Trombone Slide Assembler Family [facility] 03/07/24 [facility] 09/14/19 Angle Shearer Relationship Specialty Start Date End Date Kristal Sullivan MD [address] [place] [address] PCP - General Internal Medicine 11/17/14 Reid Ko MD [address] [place] [address] Foreign Policy Officer Endocrinology 12/08/19 Reid Ko MD [address] [place] [address] Foreign Policy Officer Endocrinology 01/11/20 Vicki Samuel PA-C [address] [place] [address] Trombone Slide Assembler Family [facility] 03/07/24 Binta Oneil APRN.ARM REST BUILDER [address] [place] [address] Trombone Slide Assembler Internal Medicine 03/07/24 Basia Deluna PA-C [address] [place] [address] [facility] 03/07/24 [facility] 09/14/19 Angle Shearer Relationship Specialty Start Date End Date Kristal Sullivan MD [address] [facility] [facility] [place] [address] PCP - General Internal Medicine 11/17/14 Reid Ko MD [address] [place] [address] Foreign Policy Officer Endocrinology 12/08/19 Reid Ko MD [address] [place] [address] Foreign Policy Officer Endocrinology 01/11/20 Vicki Samuel PA-C [address] [place] [address] Trombone Slide Assembler Family Medicine 03/07/24 Binta Oneil APRN.ARM REST BUILDER [address] [place] [address] Trombone Slide Assembler Internal Medicine 03/07/24 Basia Deluna PA-C [address] [place] [address] Trombone Slide Assembler Family Medicine 03/07/24 [facility] 09/14/19 Angle Shearer Relationship Specialty Start Date End Date Kristal Sullivan MD [address] [place] [address] PCP - General Internal Medicine 11/17/14 Reid Ko MD [address] [place] [address] Foreign Policy Officer Endocrinology 12/08/19 Reid Ko MD [address] [place] [address] Foreign Policy Officer Endocrinology 01/11/20 Vicki Samuel PA-C [address] [place] [address] Trombone Slide Assembler Family Medicine 03/07/24 Binta Oneil APRN.CNP [address] [place] [address] Trombone Slide Assembler Internal Medicine 03/07/24 Basia Deluna PA-C [address] [place] [address] Trombone Slide Assembler Family [facility] 03/07/24 [facility] 09/14/19 Angle Shearer Relationship Specialty Start Date End Date Kristal Sullivan MD [address] [place] [address] PCP - General Internal Medicine 11/17/14 Reid Ko MD [address] [place] [address] Foreign Policy Officer Endocrinology 12/08/19 Reid Ko MD [address] [place] [address] Foreign Policy Officer Endocrinology 01/11/20 Vicki Samuel PA-C [address] [place] [address] Trombone Slide Assembler Family [facility] 03/07/24 Older, REEMA Judd.[facility] [address] [place] [address] Trombone Slide Assembler Internal Medicine 03/07/24 Basia Deluna PA-C [address] [place] [address] [facility] 03/07/24 [facility] 09/14/19 Angle Shearer Relationship Specialty Start Date End Date Kristal Sullivan MD [address] [place] [address] PCP - General Internal Medicine 11/17/14 Reid Ko MD [address] [place] [address] Foreign Policy Officer Endocrinology 12/08/19 Reid Ko MD [address] [place] [address] Foreign Policy Officer Endocrinology 01/11/20 Vicki Samuel PA-C [address] [place] [address] Trombone Slide Assembler Family [facility] 03/07/24 06/20/24 Binta Oneil APRN.ARM REST BUILDER [address] [facility] [place] [address] Trombone Slide Assembler Internal Medicine 03/07/24 Basia Deluna PA-C [address] [place] [address] Trombone Slide Assembler Family Medicine 03/07/24 06/20/24 [facility] 09/14/19 Angle Shearer Relationship Specialty Start Date End Date Kristal Sullivan MD [address] [place] [address] PCP - General Internal Medicine 11/17/14 Reid Ko MD [address] [place] [address] Foreign Policy Officer Endocrinology 12/08/19 Reid Ko MD [address] [place] [address] Foreign Policy Officer Endocrinology 01/11/20 Binta Oneil APRN.ARM REST BUILDER [address] [place] [address] Trombone Slide Assembler Internal Medicine 03/07/24 [facility] 09/14/19 Angle Shearer Relationship Specialty Start Date End Date Kristal Sullivan MD [address] [place] [address] PCP - General Internal Medicine 11/17/14 Reid Ko MD [address] [place] [address] Foreign Policy Officer Endocrinology 12/08/19 Reid Ko MD [address] [place] [address] Foreign Policy Officer Endocrinology 01/11/20 Vicki Samuel PA-C [address] [place] [address] Trombone Slide Assembler Family Medicine 03/07/24 06/20/24 Binta Oneil APRN.ARM REST BUILDER [address] [place] [address] [facility] Internal Medicine 03/07/24 Basia Deluna PA-C [address] [place] [address] [facility] 03/07/24 06/20/24 [facility] 09/14/19 Angle Shearer Relationship Specialty Start Date End Date Kristal Sullivan MD [address] [place] [address] PCP - General Internal Medicine 11/17/14 Reid Ko MD [address] [place] [address] Foreign Policy Officer Endocrinology 12/08/19 Reid Ko MD [address] [place] [address] Foreign Policy Officer Endocrinology 01/11/20 Binta Oneil APRN.ARM REST BUILDER [address] [place] [address] Trombone Slide Assembler Internal Medicine 03/07/24 [facility] 6/16/20 Team Status: Active Member Role Status Dates Dr. Kristal Sullivan MD Primary Care Provider Active Team Status: Inactive Member Role Status Dates No Primary Care Physician Primary Care Provider Active Start: February 25, 2024 End: February 25, 2024 No Primary Care Physician Referring Provider Active Start: February 25, 2024 End: February 25, 2024 Virgen CASTREJON PA Attending Provider Active Start: February 25, [...] 16, 2024 End: March 16, 2024 Virgen CASTREJON PA Other Provider Active Start: March 16, 2024 End: March 16, 2024 Team Status: Active Member Role Status Dates Dr. Kristal Sullivan MD Primary Care Provider Active Start: March 16, 2024 Dr. Garrison Valadez MD Attending Provider Active S tart: March 16, 2024 Virgen CASTREJON PA Referring Provider Active Start: March 16, [...] July 07, 2024 End: July 07, 2024 Angle Shearer Relationship Specialty Start Date End Date Kristal Sullivan MD [address] [place] [address] PCP - General Internal Medicine 11/17/14 Reid Ko MD [address] [place] [address] Foreign Policy Officer Endocrinology 12/08/19 Reid Ko MD [address] [place] [address] Foreign Policy Officer Endocrinology 01/11/20 ClariceBinta BLUEPRINT MAKER.ARM REST BUILDER [address] [place] [address] Trombone Slide Assembler Internal Medicine 03/07/24 [facility] 09/14/19 Team Status: Active Member Role Status [...] August 10, 2024 Dr. Eugenia London DO Admit Provider [...] August 11, 2024 Dr. Eugenia London , Admit Provider Active Start : August 10, 2024 End: August 11, 2024 Dr. Eugenia London DO Other Provider Active Start : August 10, [...] Other Provider Active Start: August 11, 2024 Angle Shearer Relationship Specialty Start Date End Date Kristal Sullivan MD [address] [place], [place] 630621 PCP - General Internal Medicine 11/17/14 Reid Ko MD [address] [place] [address] Foreign Policy Officer Endocrinology 12/08/19 Reid Ko MD [address] [facility], [place] [address]91 Foreign Policy Officer Endocrinology 01/11/20 Binta Oneil APRN.ARM REST BUILDER [address] [place] [address] Trombone Slide Assembler Internal Medicine 03/07/24 [facility] 09/14/19 Angle Shearer Relationship Specialty Start Date End Date Kristal Sullivan MD [address] [place], [place] [address] PCP - General Internal Medicine 11/17/14 Reid Ko MD [address] [place], [place] 682211 Foreign Policy Officer Endocrinology 12/08/19 Reid Ko MD [address] [place] [address] Foreign Policy Officer Endocrinology 01/11/20 Vicki Samuel PA-C [address] [place] [address] Trombone Slide Assembler Family Medicine 03/07/24 06/20/24 Older, REEMA Judd.ARM REST BUILDER [address] [facility], [place] [address] Trombone Slide Assembler Internal Medicine 03/07/24 Basia Deluna PA-C [address] [facility], [place] 27[address]21 Trombone Slide Assembler Family Medicine 03/07/24 06/20/24 [facility] 09/14/19 Team Status: Inactive Member Role Status Dates Dr. Kristal Sullivan MD Primary Care Provider Active Start: August 17, 2024 End: August 17, 2024 Dr. Kristal Sullivan MD Referring Provider Active Start: August 17, 2024 End: August 17, 2024 Kalina Payne NP-C Attending Provider Active Start: August 17, 2024 [...] August 19, 2024 End: August 19, 2024 Angle Shearer Relationship Specialty Start Date End Date Kristal Sullivan MD [address] [place] [address] PCP - General Internal Medicine 08/23/24 Team [...] 23, 2024 End: August 23, 2024 Dr. Laruie Elizalde DO Attending Provider Active Start: August [...] August 31, 2024 End: August 31, 2024 SHELLY Loja NPC Attending Provider Active Start: August 31, 2024 End: August 31, 2024 Team Status: Inactive Member Role Status Dates Dr. Kristal Sullivan MD Primary Care Provider Active Start: September 07, 2024 End: September 07, 2024 Dr. Kristal Sullivan MD Referring Provider Active Start: September 07, 2024 End: September 07, 2024 RAVINDER Sloan Attending Provider Active Start: September 07, 2024 End: September 07, 2024 Angle Shearer Relationship Specialty Start Date End Date Kristal Sullivan MD [address] [place] [address] PCP - General Internal Medicine 11/17/14 Reid Ko MD [address] [facility], [place] [address] Foreign Policy Officer Endocrinology 12/08/19 Reid Ko MD [address] [facility], [place] 502141 Foreign Policy Officer Endocrinology 01/11/20 Binta Oneil APRN.CNP [address] [facility] [place] [address] Trombone Slide Assembler Internal Medicine 03/07/24 [facility] 09/14/19 Team Status: Inactive Member Role Status Dates Dr. Kristal Sullivan MD Primary Care Provider Active Start: September 16, 2024 End: September 16, 2024 RAVINDER Sloan Attending Provider Active Start: September 16, 2024 End: September 16, 2024 RAVINDER Sloan Referring Provider Active Start: September 16, 2024 End: September 16, 2024 Angle Shearer Relationship Specialty Start Date End Date Kristal Sullivan MD [address] [place] [address] PCP - General Internal Medicine 11/17/14 Reid Ko MD [address] [place] [address] Foreign Policy Officer Endocrinology 12/08/19 Reid Ko MD [address] [place] [address] Foreign Policy Officer Endocrinology 01/11/20 Binta Oneil APRN.ARM REST BUILDER [address] [place] [address] Trombone Slide Assembler Internal Medicine 03/07/24 [facility] 09/14/19 Angle Shearer Relationship Specialty Start Date End Date Kristal Sullivan MD [address] [place] [address] PCP - General Internal Medicine 11/17/14 Reid Ko MD [address] [place] [address] Foreign Policy Officer Endocrinology 12/08/19 Reid Ko MD [address] [place] [address] Foreign Policy Officer Endocrinology 01/11/20 Binta Oneil APRN.ARM REST BUILDER [address] [place] [address] Trombone Slide Assembler Internal Medicine 03/07/24 [facility] 09/14/19 Angle Shearer Relationship Specialty Start Date End Date Kristal Sullivan MD [address] [place] [address] PCP - General Internal Medicine 11/17/14 Reid Ko MD [address] [facility], [place] [address] Foreign Policy Officer Endocrinology 12/08/19 Reid Ko MD [address] [facility], [place] [address]141 Foreign Policy Officer Endocrinology 01/11/20 Binta Oneil APRN.[facility] [address] [facility] [place] [address] Trombone Slide Assembler Internal Medicine 03/07/24 [facility] 09/14/19 Team Status: Active Member Role/Relationship Status Dates Dr. Kristal Sullivan MD Primary Care Provider Active Team Status: Inactive Member Role/Relationship Status Dates Dr. Kristal Sullivan MD Primary Care Provider Active Start: July 07, 2024 End: July 07, 2024 Dr. Garrison Valadez MD Attending Provider Active S tart: July 07, 2024 End: July 07, 2024 Dr. Grarison Valadez MD Referring Provider Active S tart: July 07, 2024 End: July 07, 2024 Team Status: Active Member Role/Relationship Status Dates Dr. Kristal Sullivan MD Primary Care Provider Active Start: July 07, 2024 Dr. Garrison Valadez MD Attending Provider Active S tart: July 07, 2024 Dr. Garrison Valadez MD Referring Provider Active S tart: July 07, 2024 Dr. Garrison Valadez MD Other Provider Active Start : July 07, 2024 Team Status: Inactive Member Role/Relationship Status Dates Dr. Kristal Sullivan MD Primary Care Provider Active Start: July 20, 2024 End: July 20, 2024 Dr. Garrison Valadez MD Attending Provider Active S tart: July 20, 2024 End: July 20, 2024 Dr. Garrison Valadez MD Referring Provider Active S tart: July 20, 2024 End: July 20, 2024 Team Status: Active Member Role/Relationship Status Dates Dr. Kristal Sullivan MD Primary Care Provider Active Start: July 20, 2024 Dr. Garrison Valadez MD Attending Provider Active S tart: July 20, 2024 Dr. Garrison Valadez MD Referring Provider Active S tart: July 20, 2024 Dr. Garrison Valadez MD Other Provider Active Start : July 20, 2024 Team Status: Inactive Member Role/Relationship Status Dates RAVINDER Infante Attending Provider Active Start: July 28, 2024 End: July 28, 2024 Dr. Kristal Sullivan MD Primary Care Provider Active Start: July 28, 2024 End: July 28, 2024 Dr. Kristal Sullivan MD Referring Provider Active Start: July 28, 2024 End: July 28, 2024 Team Status: Inactive Member Role/Relationship Status Dates Dr. Kristal Sullivan MD Primary Care Provider Active Start: August 05, 2024 End: August 05, 2024 Dr. Kristal Sullivan MD Referring Provider Active Start: August 05, 2024 End: August 05, 2024 LUCÍA Mcdermott Attending Provider Active Star t: August 05, 2024 End: August 05, 2024 Team Status: Inactive Member Role/Relationship Status Dates Dr. Kristal Sullivan MD Primary Care Provider Active Start: August 10, 2024 End: August 11, 2024 Dr. Jace Yanes DO Emergency Provider Active Start : August 10, 2024 End: August 11, 2024 Dr. Eugenia London DO Admit Provider Active Start : August 10, 2024 End: August 11, 2024 Dr. Eugenia London DO Other Provider Active Start : August 10, 2024 End: August 11, 2024 Dr. Louis Koehler MD Attending Provider Active Start: August 10, 2024 End: August 11, 2024 Dr. Daisy Diaz MD Other Provider Active Start: August 10, 2024 End: August 11, 2024 Team Status: Active Member Role/Relationship Status Dates Dr. Kristal Sullivan MD Primary Care Provider Active Start: August 11, 2024 Dr. Jace Yanes DO Emergency Provider Active Start : August 11, 2024 Dr. Eugenia London , Admit Provider Active Start : August 11, 2024 Dr. Eugenia London DO Other Provider Active Start : August 11, 2024 Dr. Louis Koehler MD Other Provider Active Sta rt: August 11, 2024 Dr. Daisy Diaz MD Other Provider Active Start: August 11, 2024 Dr. Jordy Garcia MD Attending Provider Active S tart: August 11, 2024 Team Status: Active Member Role/Relationship Status Dates Dr. Kristal Sullivan MD Primary [...] Other Provider Active Start: August 11, 2024 Team Status: Inactive Member Role/Relationship Status Dates Dr. Kristal Sullivan MD Primary Care Provider Active Start: August 17, 2024 End: August 17, 2024 Dr. Kristal Sullivan MD Referring Provider Active Start: August 17, 2024 End: August 17, 2024 RAVINDER Sloan Attending Provider Active Start: August 17, 2024 End: August 17, 2024 Team Status: Inactive Member Role/Relationship Status Dates Dr. Kristal Sullivan MD Primary Care Provider Active Start: August 19, 2024 End: August 19, 2024 LUCÍA Mcdermott Attending Provider Active Star t: August 19, 2024 End: August 19, 2024 LUCÍA Mcdermott Referring Provider Active Star t: August 19, 2024 End: August 19, 2024 Team Status: Active Member Role/Relationship Status Dates Dr. Kristal Sullivan MD Primary Care Provider Active Start: August 19, 2024 Dr. Garrison Valadez MD Attending Provider Active S tart: August 19, 2024 LUCÍA Mcdermott Referring Provider Active Star t: August 19, 2024 Team Status: Inactive Member Role/Relationship Status Dates Dr. Kristal Sullivan MD Primary Care Provider Active Start: August 23, 2024 End: August 23, 2024 Dr. Laurie Elizalde DO Attending Provider Active Start: August 23, 2024 End: August 23, 2024 Dr. Laurie Elizalde DO Emergency Provider Active Start: August 23, 2024 End: August 23, 2024 Team Status: Inactive Member Role/Relationship Status Dates Dr. Kristal Sullivan MD Primary Care Provider Active Start: August 31, 2024 End: August 31, 2024 Dr. Kristal Sullivan MD Referring Provider Active Start: August 31, 2024 End: August 31, 2024 Dr. Bao Angulo DO Attending Provider Active Start: August 31, 2024 End: August 31, 2024 Team Status: Active Member Role/Relationship Status Dates Dr. Kristal Sullivan MD Primary Care Provider Active Start: August 31, 2024 Dr. Kristal Sullivan MD Referring Provider Active Start: August 31, 2024 Dr. Bao Angulo DO Attending Provider Active Start: August 31, 2024 Dr. Bao Angulo DO Other Provider Active St art: August 31, 2024 Team Status: Inactive Member Role/Relationship Status Dates Dr. Kristal Sullivan MD Primary Care Provider Active Start: August 31, 2024 End: August 31, 2024 Dr. Kristal Sullivan MD Referring Provider Active Start: August 31, 2024 End: August 31, 2024 Lorraine Browne NP, [employer] EXP[employer]-C Attending Provider Active Start: August 31, 2024 End: August 31, 2024 Team Status: Inactive Member Role/Relationship Status Dates Dr. Kristal Sullivan MD Primary Care Provider Active Start: September 07, 2024 End: September 07, 2024 Dr. Kristal Sullivan MD Referring Provider Active Start: September 07, 2024 End: September 07, 2024 Kalina Payne NP-C Attending Provider Active Start: September 07, 2024 End: September 07, 2024 Team Status: Inactive Member Role/Relationship Status Dates Dr. Kristal Sullivan MD Primary Care Provider Active Start: September 16, 2024 End: September 16, 2024 RAVINDER Sloan Attending Provider Active Start: September 16, 2024 End: September 16, 2024 RAVINDER Sloan Referring Provider Active Start: September 16, 2024 End: September 16, 2024 Team Status: Active Member Role/Relationship Status Dates Dr. Kristal Sullivan MD Primary Care Provider Active Start: September 29, 2024 Dr. Daisy Diaz MD Attending Provider Active Start: September 29, 2024 Team Status: Active Member Role/Relationship Status Dates Dr. Kristal Sullivan MD Primary Care Provider Active Start: October 19, 2024 Dr. Ford Patricia DO Emergency Provider Active Start: October 19, 2024 Dr. Chava Naik MD Admit Provider Active Star t: October 19, 2024 Dr. Chava Naik MD Attending Provider Active Start: October 19, 2024 Dr. Chava Naik MD Other Provider Active Star t: October 19, 2024 Team Status: Active Member Role/Relationship Status Dates Dr. Kristal Sullivan MD Primary Care Provider Active Start: October 19, 2024 Dr. Ford Patricia DO Emergency Provider Active Start: October 19, 2024 Dr. Chava Naik MD Admit Provider Active Star t: October 19, 2024 Dr. Chava Naik MD Attending Provider Active Start: October 19, 2024 Team Status: Inactive Member Role/Relationship Status Dates Dr. Kristal Sullivan MD Primary Care Provider Active Start: October 19, 2024 End: October 22, 2024 Dr. Ford Patricia DO Emergency Provider Active Start: October 19, 2024 End: October 22, 2024 Dr. Chava Naik MD Admit Provider Active Star t: October 19, 2024 End: October 22, 2024 Dr. Chava Naik MD Other Provider Active Star t: October 19, 2024 End: October 22, 2024 Dr. Daisy Diaz MD Other Provider Active Start: October 19, 2024 End: October 22, 2024 Dr. Chris Emerson DO Attending Provider Active Start: October 19, 2024 End: October 22, 2024 Team Status: Active Member Role/Relationship Status Dates Dr. Kristal Sullivan MD Primary Care Provider Active Start: October 20, 2024 Dr. Ford Patricia , Emergency Provider Active Start: October 20, 2024 Dr. Chava Naik MD Admit Provider Active Star t: October 20, 2024 Dr. Chava Naik MD Other Provider Active Star t: October 20, 2024 Dr. Daisy Diaz MD Other Provider Active Start: October 20, 2024 Dr. Chris Emerson DO Other Provider Active S tart: October 20, 2024 Dr. Sofi Gonzales MD Attending Provider Active Start: October 20, 2024 Angle Shearer Relationship Specialty Start Date End Date Kristal Sullivan MD [address] [facility], [place] [address] PCP - General Internal Medicine 11/17/14 Reid Ko MD [address] [place] [address] Foreign Policy Officer Endocrinology 12/08/19 Reid Ko MD [address] [facility], [place] [address] Foreign Policy Officer Endocrinology 01/11/20 Binta Oneil APRN.ARM REST BUILDER [address] [facility] [place] [address] Trombone Slide Assembler Internal Medicine 03/07/24 [facility] 09/14/19 Angle Shearer Relationship Specialty Start Date End Date Kristal Sullivan MD [address] [place] [address] PCP - General Internal Medicine 11/17/14 Reid Ko MD [address] [place], [place] [address] Foreign Policy Officer Endocrinology 12/08/19 Reid Ko MD [address] [place] [address] Foreign Policy Officer Endocrinology 01/11/20 Binta Oneil APRN.ARM REST BUILDER [address] [place] [address] Trombone Slide Assembler Internal Medicine 03/07/24 [facility] 09/14/19 Angle Shearer Relationship Specialty Start Date End Date Kristal Sullivan MD [address] [facility] [address] [facility] [address] PCP - General Internal Medicine 11/17/14 Reid Ko MD [address] [place] [address] Foreign Policy Officer Endocrinology 12/08/19 Reid Ko MD [address] [place] [address] Foreign Policy Officer Endocrinology 01/11/20 Binta Oneil APRN.ARM REST BUILDER [address] [place] [address] Trombone Slide Assembler Internal Medicine 03/07/24 [facility] 09/14/19 Angle Shearer Relationship Specialty Start Date End Date Kristal Sullivan MD [address] [place] [address] PCP - General Internal Medicine 11/17/14 Reid Ko MD [address] [facility] [address] [facility] [address] Foreign Policy Officer Endocrinology 12/08/19 Reid Ko MD [address] [facility] [address] [facility] [address] Foreign Policy Officer Endocrinology 01/11/20 Binta Oneil APRN.ARM REST BUILDER [address] [place] [address] Trombone Slide Assembler Internal Medicine 03/07/24 [facility] 09/14/19 Angle Shearer Relationship Specialty Start Date End Date Kristal Sullivan MD [address] [facility] [address] [facility] [address] PCP - General Internal Medicine 11/17/14 Reid Ko MD [address] [facility] [facility] [address] Foreign Policy Officer Endocrinology 12/08/19 Reid Ko MD [address] [place] [address] Foreign Policy Officer Endocrinology 01/11/20 Binta Oneil APRN.ARM REST BUILDER [address] [place] [address] Trombone Slide Assembler Internal Medicine 03/07/24 [facility] 09/14/19 Angle Shearer Relationship Specialty Start Date End Date Kristal Sullivan MD [address] [facility] [address] [facility] [address] PCP - General Internal Medicine 11/17/14 Reid Ko MD [address] [facility] [address] [facility] [address] Foreign Policy Officer Endocrinology 12/08/19 Reid Ko MD [address] [place], [place] [address]481 Foreign Policy Officer Endocrinology 01/11/20 Binta Oneil APRN.ARM REST BUILDER [address] [place], [place] [address] Trombone Slide Assembler Internal Medicine 03/07/24 [facility] 09/14/19 Angle Shearer Relationship Specialty Start Date End Date Kristal Sullivan MD [address] [place], [place] [address] PCP - General Internal Medicine 11/17/14 Reid Ko MD [address] [place], [place] [address] Foreign Policy Officer Endocrinology 12/08/19 Reid Ko MD [address] [place], [place] [address] Foreign Policy Officer Endocrinology 01/11/20 Binta Oneil APRN.ARM REST BUILDER [address] [place] [address] Trombone Slide Assembler Internal Medicine 03/07/24 [facility] 09/14/19 Reason for Visit (unrecogniz ed section and content) Reason Comments Radio Main J1 Specialty Diagnoses / Procedures Referred By Contac [...] W & W/O CONTRAST Ronen Eldridge MD [address] [place] [address] Phone: tel: fax: [facility] [address] [place] [id number] Phone: tel: Referral ID Status Reason Start Date Expiration Date Visits Requested Visits Authorized [id number] Authorized Financial Clearance Required - OON Payor Patient Cleared - INN Insurance Found 10/12/2024 10/12/2029 99 99 Reason Comments Waitlist Maintenance Reason Comments Nutrition Assessment Patient Education Specialty [...] W & W/O CONTRAST Ronen Eldridge MD [address] [place] [address] [facility] [address] [place] [id number] Referral ID Status Reason Start Date Expiration Date Visits Requested Visits Authorized [id number] Authorized Financial Clearance Required - OON Payor [...] W & W/O CONTRAST Ronen Eldridge MD [address] [place] [address] [facility] T[facility] Ctr [facility] [address] [place] [address] Specialty Diagnoses / Procedures Referred By Contac t Referred To Contact CT IMAGING Diagnoses Chronic renal failure, stage 4 (severe) (HCC) Pre-transplant evaluation for kidney and pancreas transplant Procedures CT ABD/PEL WO IVCON CT ABD & PELVIS W/O CONTRAST Kim Chung PA-C [address] [place] [address] Ct Imaging [place] [address] Referral ID Status Reason Start Date Expiration Date V isits Requested Visits Authorized [id number] Closed Auto-Generated Referral Patient Cleared - INN Insurance Found 08/14/2023 10/13/2023 1 1 Reason Comments Clinical Update Reason Comments Patient Update Reason Comments Radiology NM Specialty Diagnoses / Procedures Referred By Contac t Referred To Contact MOLECULAR & FUNCTIONAL IMAGING Diagnoses Encounter for other preprocedural examination Procedures NM CARDIAC PERF STRESS/PHARM MYOCARDIAL SPECT MULTIPLE STUDIES Ronen Eldridge MD [address] [place] [address] Molecular & Functional Imaging [address] [place] [address] Referral ID Status Reason Start Date Expiration Date Visits Requested Visits Authorized [id number] Pending Review Auto-Genera sharan Referral Patient Cleared [...] F/U 3 Month Reason Comments Appointments Reminder Reason Comments Waitlist Status Update Inactive - on Syd vix Reason Comments Received Outside Medical Records (unrecognized sect ion and content) No Status Records FoundNo Status Records FoundNo Status Records FoundNo Status Records Found INFORMATION SOURCE (unrecogn ized section and content) DATE CREATED AUTHOR 12/25/2023 [facility] DATE CREATED AUTHOR AUTHOR'S ORGANIZ ATION 09/22/2024 [facility] DATE CREATED AUTHOR AUTHOR'S ORGANIZ ATION 12/22/2024 [facility] DATE CREATED AUTHOR AUTHOR'S ORGANIZ ATION 12/30/2024 [facility] Scheduled Active and Recently Administ ered Medications [...] 0943 (Given - Provider: Markus Pabon RN) ceFAZolin (Ancef) 1,000 mg in sodium chloride [...] LPN) 1648 (New Bag - Provider: Caitlyn Ashby, KANDACE)1738 (Stopped - Provider: Mike Lopez, KANDACE) 1400 (Canceled Entry - Provider: Automatic Discharge Provider - Comment: Automatically canceled at discontinue of medication order) clopidogrel (Plavix) tablet 75 mg 75 mg, Oral, Daily, First dose on Fri08/24/24 at 1430 0846 (Given - Provider: Silva Rodriguez LPN) 0831 (Given - Provider: Mike Lopez, KANDACE) 0943 (Given - Provider: Markus Pabon RN) heparin injection 5,000 Units 5,000 Units, SubCUTAneous, Every 8 hours scheduled (3 times per day), First dose on Fri08/23/24 at 1400 0552 (Given - Provider: Cezar Monique RN)1430 (Given - Provider: Silva Rodriguez LPN)2220 (Given - Provider: Alfred Tavarez RN) 0643 (Given - Provider: Alfred Tavarez, KANDACE)1322 (Not Given - Provider: Mike Lopez RN [...] 2100 2220 (Given - Provider: Alfred Tavarez, KANDACE) Insulin Lispro (Humalog) injection 0-10 Units 0-10 [...] 2220 (Given - Provider: Alfred Tavarez RN) 2134 (Given - Provider: Lara Prescott RN) Insulin Lispro (Humalog) injection 0-6 Units (CANCELED)(Linked [...] or split. 0552 (Given - Provider: Cezar Monique RN) 0643 (Given - Provider: Alfred Tavarez RN) 0531 (Given - Provider: Lara Prescott RN) rosuvastatin (Crestor) tablet 20 mg 20 mg, Oral, Nightly, First dose on Fri08/23/24 at 2100 2220 (Given - Provider: Alfred Tavarez, KANDACE) 2011 (Given - Provider: Lara Prescott RN) [...] 3 times daily PRN, itching, Starting on Fri08/26/24 at 1434 1536 (Given - Provider: Silva [...] vomiting, Starting on Fri08/24/24 at 0809, Give MA if patient is unable to take orally [...] PRN, nausea, vomiting, Starting on Fri08/24/24 at 08, Give IV if patient is unable to take orally. Give IM if patient is unable to take orally and does not have IV access. Or prochlorperazine (Compazine) suppository 25 mgJump to med 25 mg, Rectal, Every 12 hours PRN, nausea, vomiting, Starting on Fri08/24/24 at 0809, Give MA if patient is unable to take orally [...] BE BASED ON THE PRIMARY CLINICAL RECORDS. [employer] [facility]. provides no warranty or guarantee of the accuracy or completeness of information in this document.
[2024-12-31 01:40] LABS: Hematocrit 27.9 % (40-54); Hemoglobin 9.8 g/dL (13.0-16.5); Immature Granulocytes Count 0.030 X10^3/uL (0.0-0.0); Mean Corp Hgb Conc 35.1 g/dL (32-36); Mean Corpuscular Volume 89.7 fL (80-94); Mean Platelet Vol. 9.3 fl (6.2-12.0); NRBC Flagged by Analyzer 0 % (0-5); POSITIVE DIFFERENTIAL YES; Platelet Count 228 K/mm3 (150-450); RBC Distribution Width CV 13.6 % (11.6-14.6); RBC Distribution Width SD 44.5 fl (35.1-43.9); Red Blood Count 3.11 M/mm3 (4.6-6.2); White Blood Count 6.4 K/mm3 (4.4-11.0)
--- NOTE | 2024-12-31 01:40 | EKG12_ITS ---
Test Reason : hypoxia Blood Pressure : */* mmHG Vent. Rate : 103 BPM Atrial Rate : 103 BPM P-R Int : 138 ms QRS Dur : 78 ms QT Int : 378 ms P-R-T Axes : 17 -1 86 degrees QTcB Int : 495 ms Sinus tachycardia Possible Lateral infarct , age undetermined QTcB >= 480 msec Abnormal ECG Confirmed by MECCA LACEY, TONIA ([id number]), slot editor KEYLA MORENO ([id number]) on 01/03/2025 6:20:41 AM Referred By: Aden Confirmed By: TONIA WING MD
[2024-12-31] MEDS: 0.9% Normal Saline (500mL Bag) 500 ML 999 ML IV (01:42)
--- NOTE | 2024-12-31 02:00 | RAD_ITS ---
PROCEDURE: CHEST 1 VIEW (PORTABLE) 12/31/2024 REASON FOR EXAM: COUGH TECHNIQUE: Frontal view of the chest. COMPARISON: 08/23/2024. FINDINGS: The lungs are expanded. There is no demonstrated parenchymal abnormality. There is no demonstrated pleural abnormality. Normal heart and pericardium. Normal mediastinum and yamini. Normal visualized pulmonary arteries. Normal visualized aortic arch and descending thoracic aorta. Normal visualized thoracic spine. Normal visualized ribs, clavicles, and shoulders. There is no demonstrated abnormality of the visualized soft tissue structures of the upper abdomen. RAD/Chest 1 View (Portable) IMPRESSION: No evidence for acute abnormality. [facility]
[2024-12-31 02:16] LABS: Mucous, Urine 0 SEEN /hpf (<or=2+); Squamous Epithelial Cells - UA 0 SEEN /hpf (0-5)
[2024-12-31 02:19] LABS: AST(SGOT) 21 U/L (<=37); Alanine Aminotransfer ALT/SGPT 12 U/L (<=46); Albumin, Serum 4.4 g/dL (3.5-5.0); Alkaline Phosphatase 62 U/L (40-129); Anion Gap 21 (5-15); BUN 37 mg/dL (4-19); BUN/Creat Ratio 7.1 RATIO (10-20); Bilirubin, Direct 0.25 mg/dL (0.00-0.30); Calcium,Total 10.8 mg/dL (7.6-11.0); Carbon Dioxide 23.2 mmol/L (21.0-32.0); Chloride 93 mmol/L (98-108); Estimated Creatinine Clearance 19.67 ml/min (50-250); Globulin 2.7 g/dL (2.2-4.2); Glucose 132 mg/dL (70-99); Lipase 18 U/L (13-75); Magnesium 1.6 mg/dL (1.5-2.2); Potassium 3.4 mmol/L (3.3-5.1); Procalcitonin 7.56 ng/mL (<=0.10)
[2024-12-31 02:27] LABS: Color, Urine Yellow (Yellow); Glucose, Dipstick 250 mg/dl (Normal); Ketone-Dipstick Negative (Negative); Leukocyte Esterase-Dipstick Negative /ul (Negative); Nitrite-Dipstick Negative (Negative); Occult Blood-Urine 50 /ul (Negative); Protein-Dipstick 500 mg/dl (Negative); Specific Gravity, Urine 1.020 (1.002-1.030); Urine Bilirubin Dipstick Negative (Negative)
[2024-12-31 02:42] LABS: Fine Granular Cast- Urine 10-25 SEEN /lpf (0-5)
[2024-12-31 02:45] LABS: Red Blood Cells-Urine 10-25 SEEN /hpf (0-5)
--- NOTE | 2024-12-31 03:26 | EX.ED.DYSGE1 ---
HPI History of Present Illness Chief Complaint: General Illness Informant: patient and spouse/S.O. Narrative Narrative: Patient is a 44-year-old male with past medical history of of chronic kidney disease on dialysis as well as diabetes hypertension and hyperlipidemia. He states he does dialysis 5 days a week. He reports he did dialysis today and shortly after began having fevers and chills with bouts of nausea and vomiting. He reports he has also had cough and congestion for approximately 3 weeks. He states that his and kids have not been sick and he denies any known sick contacts at dialysis. However because of his chronic medical conditions and the fact he now has developed a fever there is concern for underlying infection and he comes in for evaluation [facility] Medical History Acute hypoxemic respiratory failure Bloodstream infection Hypertension High cholesterol Difficulty swallowing History of stress test Insulin dependent diabetes mellitus History of renal dialysis History of renal disease Back pain Injury of back Dietary restriction Gastric reflux Non-smoker Leg cramps Cardiology follow-up encounter History of echocardiogram History of heart attack ESRD (end stage renal disease) on dialysis Congestive heart failure of unknown etiology Acute kidney injury superimposed on chronic kidney disease Elevated troponin Presence of insulin pump Charcot foot due to diabetes mellitus Home Medications ?Medication ?Instructions ?Recorded ?Last Taken ?Type aspirin 81 mg tablet,delayed 81 mg PO BREAKFAST #90 tabs 02/25/24 10/18/24 08:33 Rx release sevelamer carbonate 800 mg tablet 1,600 mg PO TID kidneys 06/18/24 10/18/24 08:34 History blood-glucose sensor (Dexcom G6 #9 ea 07/23/24 Unknown Rx Sensor device) blood-glucose transmitter (Dexcom #1 ea 07/23/24 Unknown Rx G6 Transmitter device) cholecalciferol (vitamin D3) 50 150 mcg PO DAILY dietary supplement 07/28/24 10/18/24 08:33 History mcg (2,000 unit) capsule pantoprazole 40 mg tablet,delayed 40 mg PO BID #180 tabs 09/07/24 10/18/24 14:34 Rx release insulin pump cart,auto,BT,G6/7 #30 ea 09/27/24 Unknown Rx (Omnipod 5 G6-G7 Pods (Gen 5) subcutaneous cartridge) amlodipine 10 mg tablet 10 mg PO DAILY 12/23/24 Unknown History metoprolol succinate 25 mg 25 mg PO DAILY 12/23/24 Unknown History tablet,extended release 24 hr insulin aspart U-100 100 unit/mL 80 unit (0.8 mL) continuous 12/30/24 Unknown Rx subcutaneous solution (Novolog subcutaneous infusion .continuous U-100 Insulin aspart) #72 mL rosuvastatin 10 mg tablet 10 mg PO DAILY #90 tabs 12/30/24 Unknown Rx cephalexin 500 mg capsule 500 mg PO TID 7 days #21 caps 12/31/24 Unknown Rx ropinirole 0.25 mg tablet 0.25 mg PO DAILY 12/31/24 Unknown History Allergy/AdvReac Type Severity Reaction Status Date / Time No Known Allergies Allergy Verified 12/31/24 00:39 Family History Mother Diabetes Thyroid disorder Grandmother Diabetes Grandfather Diabetes Surgical History Hx of surgical procedure History of cardiac catheterization Hx of surgical procedure History of coronary artery stent placement History of surgery on lower extremity Social History Smoking Status: Never smoker alcohol intake: never substance use type: does not use ROS ROS ED Constitutional Constitutional ED: Reports chills and fever(s) Eyes Eyes: Denies blurry vision or change in vision ENT ENT ED: Reports rhinorrhea and sore throat Cardiovascular Cardiovascular: Denies chest pain Respiratory/Chest Respiratory/Chest: Reports cough and dyspnea Gastrointestinal Gastrointestinal: Reports nausea and vomiting; Denies abdominal pain or diarrhea Genitourinary Genitourinary ED: Denies dysuria Musculoskeletal Musculoskeletal: Reports myalgias Integumentary Denies rash Neurologic Neurologic: Reports headache(s) Hematologic/Lymphatic Hematologic/Lymphatic: Denies easy bleeding or easy bruising EXAM Physical Exam Const Vital Signs: 12/31/24 00:39 12/31/24 00:39 12/31/24 00:42 Temperature 102.2 F H 102.2 F H Temperature Source Oral Oral Pulse Rate 107 H 107 H Respiratory Rate 17 19 H Respiratory Effort Respiratory Pattern Blood Pressure 149/77 H 149/77 H Blood Pressure Mean 101 101 Pulse Ox 86 92 92 Oxygen Delivery Method Room Air Nasal Cannula Nasal Cannula Oxygen Flow Rate (L/min) 4 4 12/31/24 00:42 12/31/24 01:39 12/31/24 01:42 Temperature 100 F H 100 F H Temperature Source Oral Oral Pulse Rate 100 100 Respiratory Rate 16 16 Respiratory Effort Normal Respiratory Pattern Normal Blood Pressure 154/81 H 154/81 H Blood Pressure Mean 105 105 Pulse Ox 92 92 Oxygen Delivery Method Room Air Room Air Oxygen Flow Rate (L/min) 12/31/24 02:00 12/31/24 03:00 Temperature 99.5 F H 99.3 F H Temperature Source Oral Oral Pulse Rate 95 95 Respiratory Rate 15 12 Respiratory Effort Respiratory Pattern Blood Pressure 121/53 H 127/53 H Blood Pressure Mean 75 77 Pulse Ox 97 95 Oxygen Delivery Method Nasal Cannula Nasal Cannula Oxygen Flow Rate (L/min) 2 2 Positive well nourished and well developed General Appearance ED: well developed; Negative for pallor HEENT Reports dry mucous membranes HEENT Narrative: Normocephalic atraumatic No tongue or lip swelling no oral lesions no airway edema or compromise; there is cobblestoning noted in the posterior pharynx consistent with sinus drainage No secondary findings to suggest infection Mouth ED: Yes dry mucous membranes Mouth: dry mucous membranes Eyes PERRL and EOMs intact bilaterally General Eye ED: Negative for scleral icterus Neck supple and no JVD Neck Narrative: No nuchal rigidity or meningeal signs Chest Wall palpation of chest normal Resp normal respiratory effort Resp Narrative: Breath sounds are diminished throughout with faint rhonchi noted in the bilateral bases but no signs of respiratory distress Cardio regular rhythm Rate: tachycardic and other Other Details: Tachycardic rate with regular rhythm GI non-tender, non-distended and no masses GI Narrative: Abdomen is soft nontender and nondistended with hyperactive bowel sounds. No voluntary guarding or rigidity. No pulsatile mass or fluid wave. No peritoneal signs Auscultation: hyperactive bowel sounds Palpation: soft Extremity normal to inspection Extremity Narrative: No asymmetric edema no pitting edema negative Homans' sign bilaterally Fistula in place in the left forearm with palpable thrill and good bruit Neuro oriented x3, CN's II-XII intact bilaterally and no sensory deficits noted Sensorium / Orientation: alert Motor Exam: strength 5/5 throughout Psych mental status grossly normal Skin no rashes or lesions noted, no wounds and No skin turgor normal Skin Narrative: Skin turgor is slightly increased General Skin Exam: Negative for jaundice or pallor MDM MDM MDM Narrative Medical decision making narrative: Patient arrived to ER febrile and was tachycardic associated with this. He states he did take 1 g of Tylenol shortly prior to arrival. His room air pulse ox was also low at 86% and he has no report or need for supplemental oxygen. The patient reports nausea vomiting today with a fever but he has no distention or pain with palpation on exam. He does not have peritoneal signs going against SBP. In order to assess for potential biliary colic/acute cholecystitis or pancreatitis as the cause of his symptoms I did elect to perform basic laboratory studies. Despite his end-stage renal disease he still urinates and therefore to check for UTI a urine sample was ordered. He has had 3 weeks of congestion and cough which is most likely viral in nature but in order to ensure there is no secondary pneumonia chest x-ray was ordered as well. Chest x-ray revealed no acute infectious finding. Patient's white blood cell count is normal at 6 and his neutrophil count is normal as well going against systemic infection. Chest x-ray reveals no lung pathology such as pneumonia. Viral swabs negative for COVID influenza and RSV. He does not have any clinically significant electrolyte abnormalities requiring emergent dialysis. His anion gap is elevated but his bicarb is normal going against development of DKA. The lactic acid is elevated but I feel this is more likely related to dehydration with his bouts of vomiting and tachycardia from the fever. The procalcitonin is elevated but the procalcitonin value is affected by renal function and is most likely elevated secondary to this. We discussed obtaining an abdominal CT but the patient does not have any abdominal pain on initial exam and on repeat exam there still is no abdominal pain. Therefore we will hold off on imaging of the abdomen. As patient's physical exam shows changes from mild dehydration he was ordered another 500 mL bolus along with IV Rocephin as the urine sample does show changes concerning for developing infection. However the patient states he is feeling much better at this time with improvement of his fever and does not want the repeat fluid bolus or IV antibiotics. As he was hypoxic initially upon arrival but with no longer hypoxic at rest after workup he was ambulated and did not have any drop to his pulse ox with ambulation. At this time his temperature has improved with Tylenol his blood pressure remained stable and he is no longer hypoxic or requiring supplemental oxygen. We did discuss potential admission for antibiotics and continued observation as he has multiple medical comorbidities which could worsen his symptoms. However he states that as he feels much better at this time and is not requiring oxygen and he is not hypotensive he does not wish to be in the hospital any longer and would prefer to go home. Therefore at this time I will start him on antibiotics while the urine culture is pending. Patient understands to return to the ER should he have any further concerns or worsening of symptoms despite outpatient treatment History & Record Review Discussion w/independent historian: Patient and Significant other Lab Data Labs: Laboratory Results - last 24 hr 12/31/24 12/31/24 00:52 02:11 WBC 6.4 RBC 3.11 L Hgb 9.8 L Hct 27.9 L MCV 89.7 MCH 31.5 MCHC 35.1 RDW Std Deviation 44.5 H RDW Coeff of Marcella 13.6 Plt Count 228 MPV 9.3 Immature Gran % (Auto) 0.500 Neut % (Auto) 92.4 H Lymph % (Auto) 4.3 L Walsh % (Auto) 1.4 Eos % (Auto) 0.8 Baso % (Auto) 0.6 Absolute Neuts (auto) 5.9 Absolute Lymphs (auto) 0.27 L Nucleated RBC % 0 Sodium 137 Potassium 3.4 Chloride 93 L Carbon Dioxide 23.2 Anion Gap 21 H BUN 37 H Creatinine 5.21 H Estim Creat Clear Calc 19.67 L Est GFR (MDRD) Non-Af 13 L BUN/Creatinine Ratio 7.1 L Glucose 132 H Lactic Acid 3.3 H* Calcium 10.8 Phosphorus 3.8 Magnesium 1.6 Total Bilirubin 0.50 Direct Bilirubin 0.25 AST 21 ALT 12 Alkaline Phosphatase 62 Total Protein 7.1 Albumin 4.4 Globulin 2.7 Lipase 18 Procalcitonin 7.56 H Urine Color Yellow Urine Clarity Cloudy Urine pH 6.0 Ur Specific Powell 1.020 Urine Protein 500 H Urine Glucose (UA) 250 H Urine Ketones Negative Urine Occult Blood 50 H Urine Nitrite Negative Urine Bilirubin Negative Urine Urobilinogen Normal Ur Leukocyte Esterase Negative Urine RBC 10-25 SEEN Urine WBC 5-10 SEEN Ur Squamous Epith Cells 0 SEEN Urine Bacteria 2+ Hyaline Casts 0-5 SEEN Fine Granular Casts 10-25 SEEN Urine Mucus 0 SEEN Radiography Diagnostic Testing: Clinical Impression(s) from Imaging Studies Chest X-Ray 12/31/24 02:00 IMPRESSION: No evidence for acute abnormality. Reading Location: [place] [address] Chest x-ray as interpreted by the emergency medicine physician reveals no acute infiltrate pneumothorax or pleural effusion Discharge Plan Triage Chief Complaint: General Illness ED Provider: Sreekanth Meza Dx/Rx/DC Orders Clinical Impression: Pyrexia, Nausea & vomiting, UTI (urinary tract infection), Dehydration, ESRD (end stage renal disease) on dialysis, Insulin dependent diabetes mellitus Instructions: Urinary Tract Infections in Men, ED Fever Control (Adult), ED Vomiting (Adult) Prescriptions: New cephalexin 500 mg capsule 500 mg PO TID 7 Days Qty: 21 0RF No Action aspirin 81 mg tablet,delayed release (DR/EC) 81 mg PO BREAKFAST Qty: 90 3RF cholecalciferol (vitamin D3) 50 mcg (2,000 unit) capsule 150 mcg PO DAILY sevelamer carbonate 800 mg tablet 1,600 mg PO TID Rx Instructions: must administer with a meal/food pantoprazole 40 mg tablet,delayed release (DR/EC) 40 mg PO BID Qty: 180 1RF Rx Instructions: take 30 minutes before breakfast and dinner ropinirole 0.25 mg tablet 0.25 mg PO DAILY amlodipine 10 mg tablet 10 mg PO DAILY metoprolol succinate 25 mg tablet extended release 24 hr 25 mg PO DAILY (DME) Dexcom G6 Sensor Device See Rx Instructions .Route Qty: 9 1RF Rx Instructions: 1 sensor q 10 days (DME) Dexcom G6 Transmitter Device See Rx Instructions .Route Qty: 1 1RF Rx Instructions: 1 q 90 days (DME) Omnipod 5 G6-G7 Pods (Gen 5) Cartridge See Rx Instructions .Route Qty: 30 1RF Rx Instructions: change every 3 days rosuvastatin 10 mg tablet 10 mg PO DAILY Qty: 90 1RF insulin aspart U-100 [Novolog U-100 Insulin aspart] 100 unit/mL solution 80 unit continuous subcutaneous infusion .continuous Qty: 72 1RF Primary Care Provider: Kristal Luke Referrals: Kristal Luke MD [Primary Care Provider, Internal Medicine] Activity Restrictions/Additional Instructions: Your workup today revealed changes concerning for developing urinary tract infection and therefore take the antibiotic/Keflex as directed. Your history and exam would indicate that the fever and nausea and vomiting is most likely related to a viral stomach infection. This can last anywhere from 24 hours to 7 days with the average being 3 days. Please continue to take 1 g of Tylenol which is 2 extra strength pills at a time up to 4 times a day to help with fever and pain. If your symptoms worsen despite taking your antibiotic and allowing time for the presumed viral infection to resolve or you have any further concerns please return to the ER for repeat evaluation. Print Language: Scottish Disposition Disposition: Home, Self Care
[2024-12-31 05:30] LABS: Reflex Lactate? Y
== END 2024-12-31 03:57 | disposition home or self-care (01) ==
PROVIDERS: Emergency Provider Emergency Medicine; PCP Internal Medicine; Visit Provider Emergency Medicine
DX: R50.9 Fever, unspecified (principal); I13.2 Hypertensive heart and chronic kidney disease with heart failure and with stage 5 chronic kidney disease, or end stage renal disease; N18.6 End stage renal disease; I50.9 Heart failure, unspecified; Z79.4 Long term (current) use of insulin; E11.22 Type 2 diabetes mellitus with diabetic chronic kidney disease; N39.0 Urinary tract infection, site not specified; E86.0 Dehydration; Z99.2 Dependence on renal dialysis; R11.2 Nausea with vomiting, unspecified; E78.00 Pure hypercholesterolemia, unspecified; Z79.82 Long term (current) use of aspirin; K21.9 Gastro-esophageal reflux disease without esophagitis; Z79.899 Other long term (current) drug therapy; Z96.41 Presence of insulin pump (external) (internal); Z95.5 Presence of coronary angioplasty implant and graft
CPT/HCPCS: 71045; 80048; 80076; 81001; 83605; 83690; 83735; 84100; 84145; 85025; 87086; 87088; 87631; 93005; 96360; 99283; A4216

== ENCOUNTER 2025-02-01 16:08 | Emergency (ER) | payer MEDICAID, SELFPAY ==
[2025-02-01 16:08] VITALS: BP 195/115; PULSE 92; RESP 16; TEMP 36.3; O2SAT 100; BMI 26.9
--- NOTE | 2025-02-01 17:00 | RAD_ITS ---
PROCEDURE: RAD/Wrist min 3 Views
--- NOTE | 2025-02-01 17:22 | EX.ED.UPPERE ---
HPI History of Present Illness HPI Narrative: Patient presents with pain in his right hand and wrist that began yesterday. Patient states they tested new boxing equipment and he was punching the punching bag when his pain began. Patient states his pain is sharp and throbbing. Patient states his pain is worse with movement. Patient states it is better with rest. Patient denies any paresthesias or weakness. Patient denies any other injuries. Chief Complaint: Upper Extremity Injury Informant: patient Occured/Mechanism Mechanism/Context: Yes blunt trauma Onset/Context/Timing Onset: Yesterday Context: Sudden Onset Timing: Continuous Quality of Pain: Sharp and Throbbing Location: Right hand Worsened by: Movement Relieved by: Rest Associated Symptoms Associated Symptoms: Negative for Parasthesia, Weakness or Loss of Funtion PFSH [facility] Medical History Acute hypoxemic respiratory failure Bloodstream infection Hypertension High cholesterol Difficulty swallowing History of stress test Insulin dependent diabetes mellitus History of renal dialysis History of renal disease Back pain Injury of back Dietary restriction Gastric reflux Non-smoker Leg cramps Cardiology follow-up encounter History of echocardiogram History of heart attack ESRD (end stage renal disease) on dialysis Congestive heart failure of unknown etiology Acute kidney injury superimposed on chronic kidney disease Elevated troponin Presence of insulin pump Charcot foot due to diabetes mellitus Home Medications ?Medication ?Instructions ?Recorded ?Last Taken ?Type aspirin 81 mg tablet,delayed 81 mg PO BREAKFAST #90 tabs 02/25/24 10/18/24 08:33 Rx release sevelamer carbonate 800 mg tablet 1,600 mg PO TID kidneys 06/18/24 10/18/24 08:34 History blood-glucose sensor (Dexcom G6 #9 ea 07/23/24 Unknown Rx Sensor device) blood-glucose transmitter (Dexcom #1 ea 07/23/24 Unknown Rx G6 Transmitter device) cholecalciferol (vitamin D3) 50 150 mcg PO DAILY dietary supplement 07/28/24 10/18/24 08:33 History mcg (2,000 unit) capsule pantoprazole 40 mg tablet,delayed 40 mg PO BID #180 tabs 09/07/24 10/18/24 14:34 Rx release insulin pump cart,auto,BT,G6/7 #30 ea 09/27/24 Unknown Rx (Omnipod 5 G6-G7 Pods (Gen 5) subcutaneous cartridge) amlodipine 10 mg tablet 10 mg PO DAILY 12/23/24 Unknown History metoprolol succinate 25 mg 25 mg PO DAILY 12/23/24 Unknown History tablet,extended release 24 hr insulin aspart U-100 100 unit/mL 80 unit (0.8 mL) continuous 12/30/24 Unknown Rx subcutaneous solution (Novolog subcutaneous infusion .continuous U-100 Insulin aspart) #72 mL rosuvastatin 10 mg tablet 10 mg PO DAILY #90 tabs 12/30/24 Unknown Rx cephalexin 500 mg capsule 500 mg PO TID 7 days #21 caps 12/31/24 Unknown Rx ropinirole 0.25 mg tablet 0.25 mg PO DAILY 12/31/24 Unknown History Allergy/AdvReac Type Severity Reaction Status Date / Time No Known Allergies Allergy Verified 02/01/25 16:09 Family History Mother Diabetes Thyroid disorder Grandmother Diabetes Grandfather Diabetes Surgical History Hx of surgical procedure History of cardiac catheterization Hx of surgical procedure History of coronary artery stent placement History of surgery on lower extremity Social History Smoking Status: Never smoker alcohol intake: never substance use type: does not use ROS ROS ED Constitutional Constitutional ED: Denies chills or fever(s) Eyes Eyes: Denies blurry vision or change in vision ENT ENT ED: Denies rhinorrhea or sore throat Cardiovascular Cardiovascular: Denies chest pain or palpitations Respiratory/Chest Respiratory/Chest: Denies cough or dyspnea Gastrointestinal Gastrointestinal: Denies nausea or vomiting Genitourinary Genitourinary ED: Denies dysuria or hematuria Musculoskeletal Musculoskeletal: Denies back pain or neck pain Integumentary Denies abscess or rash Neurologic Neurologic: Denies headache(s) or weakness Allergic/Immunologic Allergic/Immunologic ED: Denies mouth swelling or urticaria EXAM Physical Exam Const Vital Signs: 02/01/25 16:08 Temperature 97.3 F L Temperature Source Temporal Pulse Rate 92 Respiratory Rate 16 Blood Pressure 195/115 H Blood Pressure Mean 141 Pulse Ox 100 Oxygen Delivery Method Room Air Positive well nourished and well developed General Appearance ED: well developed and NAD HEENT Reports moist mucous membranes normocephalic and atraumatic Neck full ROM and supple Extremity Extremity Narrative: There is tenderness, edema, and ecchymosis over the right 2nd and 3rd metacarpals. There is also tenderness over the right wrist and anatomic snuffbox. Range of motion was limited in all motions of the right wrist, index, and long finger secondary to pain. Sensation was intact to light touch in all digits. Capillary refill was less than 2 seconds in all digits. Radial pulses are equal bilaterally. Strength is 5/5 in the radial, median, and ulnar areas. Neuro oriented x3, CN's II-XII intact bilaterally, moves all extremities and no focal motor deficits Sensorium / Orientation: alert Motor Exam: strength 5/5 throughout Psych mental status grossly normal MDM MDM MDM Narrative Medical decision making narrative: Differential diagnose includes fracture, sprain, and contusion. X-rays of the right wrist with navicular view will be obtained to assess for wrist and hand fracture. Radiography Diagnostic Testing: X-rays of the right wrist were obtained. There are 4 views. On my independent interpretation, there is no acute fracture or dislocation. There is a healed fracture of the fourth metacarpal. Radiologist also interpreted the x-rays and agrees. Treatment and Re-Evaluation Narrative: Patient was advised of this findings. Patient was instructed to ice and elevate the right wrist. Patient was given a thumb spica splint. Patient was instructed to take Tylenol or ibuprofen as needed for pain. Patient was instructed to follow-up with his primary care physician in 5 to 7 days. Patient understood and was agreeable with the plan. All questions were answered. Discharge Plan Triage Chief Complaint: Upper Extremity Injury ED Provider: Garrison Vera Dx/Rx/DC Orders Clinical Impression: Right wrist sprain, ESRF (end stage renal failure) Instructions: ED Wrist Sprain Prescriptions: No Action aspirin 81 mg tablet,delayed release (DR/EC) 81 mg PO BREAKFAST Qty: 90 3RF cholecalciferol (vitamin D3) 50 mcg (2,000 unit) capsule 150 mcg PO DAILY sevelamer carbonate 800 mg tablet 1,600 mg PO TID Rx Instructions: must administer with a meal/food pantoprazole 40 mg tablet,delayed release (DR/EC) 40 mg PO BID Qty: 180 1RF Rx Instructions: take 30 minutes before breakfast and dinner ropinirole 0.25 mg tablet 0.25 mg PO DAILY cephalexin 500 mg capsule 500 mg PO TID 7 Days Qty: 21 0RF amlodipine 10 mg tablet 10 mg PO DAILY metoprolol succinate 25 mg tablet extended release 24 hr 25 mg PO DAILY (DME) Dexcom G6 Sensor Device See Rx Instructions .Route Qty: 9 1RF Rx Instructions: 1 sensor q 10 days (DME) Dexcom G6 Transmitter Device See Rx Instructions .Route Qty: 1 1RF Rx Instructions: 1 q 90 days (DME) Omnipod 5 G6-G7 Pods (Gen 5) Cartridge See Rx Instructions .Route Qty: 30 1RF Rx Instructions: change every 3 days rosuvastatin 10 mg tablet 10 mg PO DAILY Qty: 90 1RF insulin aspart U-100 [Novolog U-100 Insulin aspart] 100 unit/mL solution 80 unit continuous subcutaneous infusion .continuous Qty: 72 1RF Primary Care Provider: Kristal Luke Referrals: Kristal Luke MD [Primary Care Provider, Internal Medicine] - 5-7 Days Print Language: Yi Disposition Disposition: Home, Self Care
[2025-02-01 17:49] VITALS: BP 163/93; PULSE 86; RESP 16; TEMP 36.3; O2SAT 100
== END 2025-02-01 18:07 | disposition home or self-care (01) ==
PROVIDERS: Emergency Provider Emergency Medicine; PCP Internal Medicine; Visit Provider Emergency Medicine
DX: S63.91XA Sprain of unspecified part of right wrist and hand, initial encounter (principal); I13.2 Hypertensive heart and chronic kidney disease with heart failure and with stage 5 chronic kidney disease, or end stage renal disease; N18.6 End stage renal disease; I50.9 Heart failure, unspecified; Z79.4 Long term (current) use of insulin; E11.22 Type 2 diabetes mellitus with diabetic chronic kidney disease; E78.00 Pure hypercholesterolemia, unspecified; I25.2 Old myocardial infarction; Z79.82 Long term (current) use of aspirin; Z79.899 Other long term (current) drug therapy; K21.9 Gastro-esophageal reflux disease without esophagitis; Z96.41 Presence of insulin pump (external) (internal); Z95.5 Presence of coronary angioplasty implant and graft; W21.89XA Striking against or struck by other sports equipment, initial encounter; Y93.89 Activity, other specified
CPT/HCPCS: 73110; 99283